=== PATIENT | female | born 1935 | race Caucasian/White ===

== ENCOUNTER → 2017-02-08 | Outpatient (CLI) | payer MEDICARE ==
[~2017-02-08] MED LIST: ALBU8.5H4 IH; ALPR.25T PO; ASP81CT PO; ATOR40TA; CALC-80 PO; CHLO1CAP PO; CRAN1TAB PO; DCS100C PO; DILT180C82 PO; FURO40TA4 PO; GBPN100C PO; GLUC500C2 PO; HYDR-3714 PO; HYDR1TAB66 PO; IBAN150T5 PO; IBP600T1 PO; IBUP-15 PO; KCL10CCR PO; LVT.05T PO; METO100T5 PO; MNTL10T PO; MULT-608 PO; NF-ESOM40C PO; OMEG1CAP51 PO; OMEP-10 PO; OXYC-12 PO; ROSU10TA12 PO; TELM40T PO; metamucil PO; ventolin inhaler ID
--- NOTE | 2017-02-08 18:00 | Diagnostic Imaging Report ---
PA and lateral views of the chest. Indication cough. Comparison 07/22/14 Findings: The lungs are hyperinflated with prominent interstitial markings on chronic basis compatible with COPD. There is scarring in the right perihilar region with the suggestion of calcified granulomas stable from 2014. The heart size is mildly enlarged. No active congestion or pulmonary edema. No effusion or pneumothorax The mediastinum and colten appear markable. Impression: COPD. Cardiomegaly. Right perihilar scarring without change from 2014. Dictated by: Dictated on workstation # [id number]
== END ==
LOC: RAD 13:24
PROVIDERS: ATTEND Nurse Practitioner Family
DX: J44.9 Chronic obstructive pulmonary disease, unspecified (principal)
CPT/HCPCS: 71020

== ENCOUNTER → 2017-02-08 | Outpatient (CLI) | payer MEDICARE ==
[2017-02-08 14:04] LABS: BASOPHILS % (AUTO) 0 % (0-10); EOSINOPHILS # (AUTO) 0.4 10^3/uL (0.0-0.3); EOSINOPHILS % (AUTO) 4 % (0-10); LYMPHOCYTES # (AUTO) 1.6 X 10^3 (1.0-4.0); LYMPHOCYTES % (AUTO) 16 % (12-44); MEAN CORPUSCULAR HEMOGLOBIN 29 PG (25-34); MEAN CORPUSCULAR HGB CONC 31 G/DL (32-36); MEAN CORPUSCULAR VOLUME 93 FL (80-99); MEAN PLATELET VOLUME 9.9 FL (7.4-10.4); MONOCYTES # (AUTO) 0.9 X 10^3 (0.0-1.0); MONOCYTES % (AUTO) 9 % (0-12); NEUTROPHILS # (AUTO) 7.2 X 10^3 (1.8-7.8); NEUTROPHILS % (AUTO) 71 % (42-75); PLATELET COUNT 269 10^3/uL (130-400); RED BLOOD COUNT 4.32 10^6/uL (4.35-5.85); RED CELL DISTRIBUTION WIDTH 14.1 % (10.0-14.5); WHITE BLOOD COUNT 10.1 10^3/uL (4.3-11.0)
[2017-02-08 15:15] LABS: BILIRUBIN,URINE NEGATIVE (NEGATIVE); KETONES,URINE NEGATIVE (NEGATIVE); LEUKOCYTE ESTERASE ,URINE 1+ (NEGATIVE); NITRITE,URINE NEGATIVE (NEGATIVE); PH,URINE 5 (5-9); PROTEIN,URINE NEGATIVE (NEGATIVE); UROBILINOGEN,URINE NORMAL (NORMAL)
== END ==
LOC: LAB 13:17
PROVIDERS: ATTEND Orthopaedic Surgery
DX: Z01.818 Encounter for other preprocedural examination (principal); N39.0 Urinary tract infection, site not specified
CPT/HCPCS: 36415; 81000; 85025

== ENCOUNTER 2017-03-25 07:04 | Emergency (ER) | payer MEDICARE ==
[~2017-03-25] VITALS: Ht 157.5 cm; Wt 102.1 kg
[2017-03-25 07:27] LABS: BILIRUBIN,URINE NEGATIVE (NEGATIVE); KETONES,URINE NEGATIVE (NEGATIVE); LEUKOCYTE ESTERASE ,URINE NEGATIVE (NEGATIVE); NITRITE,URINE NEGATIVE (NEGATIVE); PH,URINE 8 (5-9); PROTEIN,URINE 1+ (NEGATIVE); UROBILINOGEN,URINE 1 MG/DL (NORMAL)
--- NOTE | 2017-03-25 07:30 | ED GU-Female ---
General Chief Complaint: -Female Stated Complaint: BLADDER INFECTION Source: patient, spouse Exam Limitations: no limitations History of Present Illness Time seen by provider: 07:25 Initial Comments Patient presents to ER by private conveyance with her spouse with chief complaint of frequency of urination which started tonight. She denies dysuria or burning or discharge. She's was recently put on an antibiotic a few weeks back after her left knee replacement by Dr. Zuniga after that She was told that her infection had resolved. She's had no fevers chills malaise nausea vomiting diarrhea, shortness of breath or chest pain. The patient relates that she has regular urinary tract infections that usually present this way. She says in the past she has grown out Escherichia coli. Allergies and Home Medications Allergies Coded Allergies: No Known Drug Allergies (Unverified , 05/18/10) Home Medications Albuterol Sulfate 8.5 Gm Hfa.aer.ad, 8.5 GM IH Q4H PRN, (Reported) Aspirin 81 Mg Chew, 81 MG PO HS, (Reported) Calcium Carbonate/Vitamin D3 1 Each Tablet, 1 TAB PO DAILY, (Reported) Diltiazem Hcl 180 Mg Capsule.sa, 1 EACH PO DAILY, (Reported) Docusate Sodium 100 Mg Capsule, 1 TAB PO BID, (Reported) Esomeprazole Mag Trihydrate 40 Mg Capsule.dr, 1 CAP PO DAILY PRN, (Reported) Furosemide 40 Mg Tablet, 40 MG PO DAILY, (Reported) Hydrocodone Bit/Acetaminophen 1 Each Tablet, 1-2 EACH PO Q12H PRN, (Reported) Hydrocodone Bit/Acetaminophen 1 Tab Tablet, 1 TAB PO Q4H PRN for PAIN, #14 Ref 0 Prescribed by: GALILEO SOTO on 12/31/13 1843 Levothyroxine Sodium 50 Mcg Tablet, 50 MCG PO DAILY, (Reported) Metoprolol Succinate 100 Mg Tab.sr.24h, 25 MG PO DAILY, (Reported) Montelukast Sodium 10 Mg Tablet, 10 MG PO HS, (Reported) Multivitamins 1 Tab Tablet, 1 TAB PO DAILY, (Reported) [place]-3 Fatty Acids/Fish Oil 1 Each Capsule, 1 EACH PO DAILY, (Reported) Potassium Chloride 10 Meq Capcr, 10 MEQ PO DAILY, (Reported) Rosuvastatin Calcium 10 Mg Tablet, 1 EACH PO HS, (Reported) Telmisartan 40 Mg Tab, 80 MG PO HS, (Reported) Constitutional: No chills, No diaphoresis, No dizziness, No fever, No malaise, No weakness Respiratory: No cough, No short of breath Cardiovascular: No chest pain, No palpitations Gastrointestinal: No abdominal pain, No constipation, No diarrhea, No nausea Genitourinary: denies discharge, denies dysuria, frequency, denies flank pain, denies hematuria Musculoskeletal: No back pain, No joint pain Skin: No pruritus, No rash Past Nsvpdcu-Jfjtzb-Aiytoc Hx Patient Social History Alcohol Use: Denies Use Recreational Drug Use: No Smoking Status: Never a Smoker Recent Foreign Travel: No Contact w/Someone Who Travel: No Immunizations Up To Date Date of Pneumonia Vaccine: May 27, 2008 Date of Influenza Vaccine: Jun 12, 2013 Surgeries HX Surgeries: Yes (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, SKIN LESIONS) Respiratory Hx Respiratory Disorders: Yes (ASTHMA/SLEEP APNEA) Cardiovascular Hx Cardiac Disorders: Yes (IRREGULAR HEART RATE) Neurological Hx Neurological Disorders: No Reproductive System Hx Reproductive Disorders: No (HYST) Genitourinary Hx Genitourinary Disorders: Yes Gastrointestinal Hx Gastrointestinal Disorders: Yes Musculoskeletal Hx Musculoskeletal Disorders: Yes (NEUROPATHY) Endocrine Hx Endocrine Disorders: No HEENT HX ENT Disorders: No Blood Transfusions Hx Blood Disorders: No Physical Exam Vital Signs Vital Sign - Last 12Hours 03/25/17 07:14 Temp 95.9 Pulse 61 Resp 18 B/P (MAP) 136/60 Pulse Ox 94 Capillary Refill : General Appearance: WD/WN, no apparent distress Cardiovascular: normal peripheral pulses, regular rate, rhythm Respiratory: chest non-tender, lungs clear, normal breath sounds Gastrointestinal: non tender, soft Back: normal inspection, no CVA tenderness Extremities: no calf tenderness, normal capillary refill Neurologic/Psychiatric: alert, oriented x 3 Skin: normal color, warm/dry Progress/Results/Core Measures Results/Orders Lab Results Laboratory Tests Test 03/25/17 07:11 03/25/17 08:06 Range/Units Urine Color YELLOW Urine Clarity SLIGHTLY CLOUDY Urine pH 8 5-9 Urine Specific [place] 1.010 L 1.016-1.022 Urine Protein 1+ H NEGATIVE Urine Glucose (UA) NEGATIVE NEGATIVE Urine Ketones NEGATIVE NEGATIVE Urine Nitrite NEGATIVE NEGATIVE Urine Bilirubin NEGATIVE NEGATIVE Urine Urobilinogen 1 NORMAL MG/DL Urine Leukocyte Esterase NEGATIVE NEGATIVE Urine RBC (Auto) NEGATIVE NEGATIVE Urine RBC NONE /HPF Urine WBC NONE /HPF Urine Squamous Epithelial Cells 2-5 /HPF Urine Crystals NONE /LPF Urine Bacteria NEGATIVE /HPF Urine Casts NONE /LPF Urine Mucus NEGATIVE /LPF Urine Culture Indicated NO White Blood Count 8.9 4.3-11.0 10^3/uL Red Blood Count 4.33 L 4.35-5.85 10^6/uL Hemoglobin 12.2 11.5-16.0 G/DL Hematocrit 40 35-52 % Mean Corpuscular Volume 91 80-99 FL Mean Corpuscular Hemoglobin 28 25-34 PG Mean Corpuscular Hemoglobin Concent 31 L 32-36 G/DL Red Cell Distribution Width 14.4 10.0-14.5 % Platelet Count 336 130-400 10^3/uL Mean Platelet Volume 9.3 7.4-10.4 FL Neutrophils (%) (Auto) 56 42-75 % Lymphocytes (%) (Auto) 30 12-44 % Monocytes (%) (Auto) 11 0-12 % Eosinophils (%) (Auto) 3 0-10 % Basophils (%) (Auto) 1 0-10 % Neutrophils # (Auto) 5.0 1.8-7.8 X 10^3 Lymphocytes # (Auto) 2.7 1.0-4.0 X 10^3 Monocytes # (Auto) 0.9 0.0-1.0 X 10^3 Eosinophils # (Auto) 0.2 0.0-0.3 10^3/uL Basophils # (Auto) 0.1 0.0-0.1 10^3/uL Sodium Level 140 135-145 MMOL/L Potassium Level 4.6 3.6-5.0 MMOL/L Chloride Level 102 98-107 MMOL/L Carbon Dioxide Level 32 21-32 MMOL/L Anion Gap 6 5-14 MMOL/L Blood Urea Nitrogen 12 7-18 MG/DL Creatinine 0.71 0.60-1.30 MG/DL Estimat Glomerular Filtration Rate > 60 BUN/Creatinine Ratio 17 Glucose Level 102 70-105 MG/DL Calcium Level 9.6 8.5-10.1 MG/DL Magnesium Level 2.6 H 1.8-2.4 MG/DL Total Bilirubin 0.7 0.1-1.0 MG/DL Aspartate Amino Transf (AST/SGOT) 23 5-34 U/L Alanine Aminotransferase (ALT/SGPT) 13 0-55 U/L Alkaline Phosphatase 84 40-136 U/L Total Protein 6.7 6.4-8.2 GM/DL Albumin 3.8 3.2-4.5 GM/DL My Orders Orders - JASON JULIO Ua Culture If Indicated (03/25/17 07:14) Cbc With Automated Diff (03/25/17 08:03) Comprehensive Metabolic Panel (03/25/17 08:03) Magnesium (03/25/17 08:03) Post Void Residual Assessment (03/25/17 08:03) Vital Signs/I&O Vital Sign - Last 12Hours 03/25/17 07:14 Temp 95.9 Pulse 61 Resp 18 B/P (MAP) 136/60 Pulse Ox 94 Progress Note #1: Time: 08:02 Progress Note Patient with urinary frequency and otherwise clean urine. Her med history does reveal she's been taking Benadryl for a long time. No other anticholinergics. She has been using opiates however for her knee surgery which may in combination with the and a color looks explain urinary hesitancy. We'll get a postvoid residual and check her kidney function with a CMP as well as a CBC to see if there is any evidence of infection. However on further examination there is still no focal complaints other than urinary frequency and only very smaller modest amounts of micturition. Progress Note #2: Time: 08:43 Progress Note Bladder scan had 15 mL in it. Her voids her only putting out 30-45 cc of the time. She may be having some detrusor overactivity and there may be some medications contribute to her symptoms. We have encouraged her to use the lowest dose of narcotics so that she will reduce her risk for falls night getting up as well as the possibility of causing urinary retention. We've also suggested using cetirizine or loratadine rather than Benadryl at night. This is a more recent symptom however so we have also asked her to call her primary doctor and follow this up in the next week or 2. Departure Impression Impression: Primary Impression: Increased urinary frequency Disposition: 01 HOME, SELF-CARE Condition: Stable Departure-Patient Inst. Decision time for Depature: 08:44 Referrals: TOMMY MONTEIRO MD (PCP) Primary Care Physician Patient Instructions: Urinary Incontinence, Female (DC) Add. Discharge Instructions: Drink plenty of water and use a minimal amount of opiates necessary to control your knee pain. Contact your primary care doctor in 2-3 days and set up a follow-up appointment in the next week or 2. Make sure you have adequate nightlight small did throw rugs or picked up there and that nothing is littering the floors between you in the bathroom at night to reduce her risk of falls. Please return to the ER if you're experiencing fevers, chills, nausea, vomiting, or worsening symptoms. Otherwise you can also follow up with your primary care physician during the week. All discharge instructions reviewed with patient and/or family. Voiced understanding. Copy Copies To 1: TOMMY MONTEIRO MD, TITUS J Mar 25, 2017 07:30
[2017-03-25 08:14] LABS: BASOPHILS # (AUTO) 0.1 10^3/uL (0.0-0.1); BASOPHILS % (AUTO) 1 % (0-10); EOSINOPHILS # (AUTO) 0.2 10^3/uL (0.0-0.3); EOSINOPHILS % (AUTO) 3 % (0-10); LYMPHOCYTES # (AUTO) 2.7 X 10^3 (1.0-4.0); LYMPHOCYTES % (AUTO) 30 % (12-44); MEAN CORPUSCULAR HEMOGLOBIN 28 PG (25-34); MEAN CORPUSCULAR HGB CONC 31 G/DL (32-36); MEAN CORPUSCULAR VOLUME 91 FL (80-99); MEAN PLATELET VOLUME 9.3 FL (7.4-10.4); MONOCYTES # (AUTO) 0.9 X 10^3 (0.0-1.0); MONOCYTES % (AUTO) 11 % (0-12); NEUTROPHILS % (AUTO) 56 % (42-75); PLATELET COUNT 336 10^3/uL (130-400); RED BLOOD COUNT 4.33 10^6/uL (4.35-5.85); RED CELL DISTRIBUTION WIDTH 14.4 % (10.0-14.5); WHITE BLOOD COUNT 8.9 10^3/uL (4.3-11.0)
[2017-03-25 08:35] LABS: ALANINE AMINOTRANSFERASE 13 U/L (0-55); ALBUMIN 3.8 GM/DL (3.2-4.5); ANION GAP 6 MMOL/L (5-14); ASPARTATE AMINO TRANSFERASE 23 U/L (5-34); BILIRUBIN,TOTAL 0.7 MG/DL (0.1-1.0); BLOOD UREA NITROGEN 12 MG/DL (7-18); BUN/CREATININE RATIO 17; CALCIUM 9.6 MG/DL (8.5-10.1); CARBON DIOXIDE 32 MMOL/L (21-32); CHLORIDE 102 MMOL/L (98-107); CREATININE SERUM 0.71 MG/DL (0.60-1.30); GFR ESTIMATED > 60; GLUCOSE 102 MG/DL (70-105); MAGNESIUM 2.6 MG/DL (1.8-2.4); POTASSIUM 4.6 MMOL/L (3.6-5.0); SODIUM 140 MMOL/L (135-145); TOTAL PROTEIN 6.7 GM/DL (6.4-8.2)
[2017-03-25 08:53] VITALS: BP 138/62
== END 2017-03-25 08:53 | disposition home or self-care (01) ==
LOC: EDUNIT# 07:04 → ER 07:06
DX: R35.0 Frequency of micturition (principal); J45.909 Unspecified asthma, uncomplicated; G47.30 Sleep apnea, unspecified; Z96.652 Presence of left artificial knee joint; Z79.82 Long term (current) use of aspirin; Z85.828 Personal history of other malignant neoplasm of skin
CPT/HCPCS: 36415; 80053; 81000; 83735; 85025

== ENCOUNTER 2017-05-25 10:30 | Outpatient (RCR) | payer MEDICARE | END 2017-05-26 | disposition home or self-care (01) | PROVIDERS: ATTEND Orthopaedic Surgery | DX: Z96.652 Presence of left artificial knee joint; Z47.1 Aftercare following joint replacement surgery ==

== ENCOUNTER 2017-06-01 10:58 | Outpatient (RCR) | payer MEDICARE | END 2017-07-24 14:35 | disposition home or self-care (01) | PROVIDERS: ATTEND Orthopaedic Surgery | DX: Z47.1 Aftercare following joint replacement surgery (principal); Z96.652 Presence of left artificial knee joint ==

== ENCOUNTER → 2017-09-07 | Outpatient (CLI) | payer MEDICARE ==
--- NOTE | 2017-09-07 13:07 | Diagnostic Imaging Report ---
EXAMINATION: PA and lateral chest obtained at 12:15PM. INDICATION: Chronic cough The heart size is stable when compared to 07/22/2014. The prominent right hilum and the band of atelectasis/scar formation in the right upper lung seen on the previous study are again evident and no different. The lungs are generally clear. There is no sign of failure, pneumonia or a pleural effusion to indicate an acute abnormality. The mediastinum is not widened. The osseous structures are intact. IMPRESSION: There is no evidence for active disease. When compared to the prior study there has been no significant change. Dictated by: Dictated on workstation # [id number]
== END ==
LOC: RAD 11:46
PROVIDERS: ATTEND Nurse Practitioner Family
DX: R05 Cough (principal)
CPT/HCPCS: 71046

== ENCOUNTER 2018-03-14 15:16 | Outpatient (RCR) | payer MEDICARE | END 2018-03-18 | disposition home or self-care (01) | PROVIDERS: ATTEND Family Medicine | DX: R53.1 Weakness (principal); M79.606 Pain in leg, unspecified; R26.81 Unsteadiness on feet ==

== ENCOUNTER 2018-05-09 13:00 | Outpatient (RCR) | payer MEDICARE | END 2018-05-09 13:55 | disposition home or self-care (01) | PROVIDERS: ATTEND Family Medicine | DX: R53.1 Weakness (principal); M79.605 Pain in left leg; M79.604 Pain in right leg; R26.81 Unsteadiness on feet; Z96.652 Presence of left artificial knee joint ==

== ENCOUNTER 2018-07-25 14:01 | Outpatient (RCR) | payer MEDICARE | END 2018-09-15 | disposition home or self-care (01) | PROVIDERS: ATTEND Family Medicine | DX: M25.561 Pain in right knee (principal); M25.562 Pain in left knee; M54.9 Dorsalgia, unspecified ==

== ENCOUNTER → 2018-10-07 | Outpatient (CLI) | payer MEDICARE ==
--- NOTE | 2018-10-07 12:44 | Diagnostic Imaging Report ---
Indication: Routine screening. Comparison is made with prior mammogram from 07/22/2014 and 03/05/2013. 2-D and 3-D bilateral screening mammography was performed with CAD. Scattered fibroglandular densities are identified bilaterally. A nodular density in the retroareolar right breast on the CC view appears stable when compared to prior exams. No new mass or malignant-appearing microcalcifications are identified. The axillae are unremarkable. Impression: BI-RADS category 2 No mammographic features suspicious for malignancy are identified. ACR BI-RADS Category 2: Benign findings. Result letter will be mailed to the patient. Note: At least 10% of breast cancer is not imaged by mammography. Dictated by: Dictated on workstation # [id number]
== END ==
LOC: RAD 09:31
PROVIDERS: ATTEND Nurse Practitioner Family
DX: Z12.31 Encounter for screening mammogram for malignant neoplasm of breast (principal)
CPT/HCPCS: 77067

== ENCOUNTER 2018-12-18 05:41 | Outpatient (CLI) | payer MEDICARE ==
[~2018-12-18] VITALS: Ht 157.5 cm; Wt 102.1 kg
[2018-12-18] MEDS ORDERED: ROSU10TA27 PO (13:07)
[2018-12-18] MEDS ORDERED: CAND16TA12 PO (13:07)
[2018-12-18] MEDS ORDERED: ASPI-999 PO (13:07)
[2018-12-18] MEDS ORDERED: MONT10TA24 PO ×2 (13:07)
[2018-12-18] MEDS ORDERED: ACID1TAB5 PO (13:07)
[2018-12-18] MEDS ORDERED: ALPR0.254 PO (13:07)
[2018-12-18] MEDS ORDERED: DILT240C53 PO (13:07)
[2018-12-18] MEDS ORDERED: POTA10CA43 PO (13:07)
[2018-12-18] MEDS ORDERED: FURO40TA4 PO (13:07)
[2018-12-18] MEDS ORDERED: LEVO50TA6 PO (13:07)
[2018-12-18] MEDS ORDERED: MELO15TA39 PO (13:07)
[2018-12-18] MEDS ORDERED: DOCU100T2 PO (13:07)
[2018-12-18] MEDS ORDERED: BIMA2.5D4 OP (13:07)
[2018-12-18] MEDS ORDERED: CALC-654 PO (13:07)
== END 2018-12-18 13:12 | disposition home or self-care (01) ==
LOC: PREOP 05:41
PROVIDERS: ATTEND Specialist
DX: Z01.818 Encounter for other preprocedural examination (principal)

== ENCOUNTER 2018-12-20 08:50 | Day surgery (SDC) | payer MEDICARE ==
[~2018-12-20] VITALS: Ht 157.5 cm; Wt 102.1 kg
[~2018-12-20 08:50] MED LIST changes: +ACID1TAB5 PO; +ALPR0.254 PO; +ASPI-999 PO; +BIMA2.5D4 OP; +CALC-654 PO; +CAND16TA12 PO; +DILT240C53 PO; +DOCU100T2 PO; +LEVO50TA6 PO; +MELO15TA39 PO; +MONT10TA24 PO; +POTA10CA43 PO; +ROSU10TA27 PO
[2018-12-20 09:12] VITALS: BP 113/78
[2018-12-20] MEDS ORDERED: TIMOLOL MALEATE 0.5% 5 ML (TIMOPTIC) BTL OU PRN (09:15)
[2018-12-20] MEDS ORDERED: MOXIFLOXACIN OPHTH SOLN 5 MG/ML 0.3 ML SYRINGE OP ONE (09:15)
[2018-12-20] MEDS ORDERED: POVIDONE (BETADINE) OPHTH SOLN 5% 30 ML OP ONE (09:15)
[2018-12-20] MEDS ORDERED: LIDOCAINE PF 1% 2 ML AMP IR PRN (09:15)
[2018-12-20] MEDS: TETRACAINE 0.5% OPHTH SOLN 4 ML BTL (SINGLE DOSE ONLY) OU PRN ×4 (09:17→09:38)
[2018-12-20] MEDS: CYCLOPENTOLATE 1% (CYCLOGYL) 2 ML DROPS OP SCH ×3 (09:27→09:38)
[2018-12-20] MEDS: PHENYLEPHRINE 10% OPHTH (NEO-SYN) 5 ML BTL OU SCH ×3 (09:28→09:38)
[2018-12-20] MEDS ORDERED: MIDAZOLAM 2 MG/2 ML (VERSED) VIAL ONE (09:42)
--- NOTE | 2018-12-20 09:56 | Ophthalmologist Pre-Op Note ---
Pre-Operative Progress Note H&P Reviewed The H&P was reviewed, patient examined and no changes noted. Date H&P Reviewed: Dec 20, 2018 Time H&P Reviewed: 09:56 Pre-Op Dx Cataract, Left Eye SOUTH PETERS MD Dec 20, 2018 09:56
--- NOTE | 2018-12-20 10:22 | Ophthalmology Operative Report ---
Cataract removal/placement IOL PREOPERATIVE DIAGNOSIS: Cataract Left Eye POSTOPERATIVE DIAGNOSIS: Cataract Left Eye PROCEDURE: Cataract removal and placement of posterior chamber implant, left eye SURGEON: Parviz Peters ANESTHESIA: Topical with sedation COMPLICATIONS: None ESTIMATED BLOOD LOSS: Minimal DESCRIPTION OF PROCEDURE: After proper informed consent was obtained, the patient, a 83 female, was taken to the Operating Room and the left eye was anesthetized with tetracaine. The left eye was then prepped and draped in the usual manner. A wire lid speculum was placed. A paracentesis was made at the left hand position. Preservative free lidocaine was injected into the anterior chamber followed by viscoelastic. A clear corneal incision was made in the temporal position. A capsulorrhexis was preformed and the central nuclear and cortical material were removed. The posterior capsule was polished and an Emeterio 19.5 [id number] was placed into the capsular bag. The residual viscoelastic was aspirated and balanced saline solution was injected into the anterior chamber. Moxifloxacin was injected into the anterior chamber. The wound was checked and found to be water tight. The patient tolerated the procedure well without complications. PARVIZ PETERS MD Dec 20, 2018 10:22
[2018-12-20] MEDS ORDERED: acetaZOLAMIDE ER 500 MG CAP (DIAMOX SEQUELS) PO ONE (10:30)
[2018-12-20 10:35] VITALS: BP 130/76
--- NOTE | 2018-12-20 10:54 | NUR ---
Initial visit with pt and her her , Ravinder. They demonstrate positive attitudes and expressed appreciation for excellent care. Offered active listening and uplifting words of support.
--- NOTE | 2018-12-20 12:08 | Anesthesia-General Post-Op ---
MAC Patient Condition Mental Status/LOC: Same as Preop Cardiovascular: Satisfactory Nausea/Vomiting: Absent Respiratory: Satisfactory Pain: Controlled Complications: Absent Post Op Complications Complications None Follow Up Care/Instructions Patient Instructions None needed. Anesthesiology Discharge Order Discharge Order Patient is doing well, no complaints, stable vital signs, no apparent adverse anesthesia problems. No complications reported per nursing. CHUNG PIZARRO CRNA Dec 20, 2018 12:08
== END 2018-12-20 10:41 | disposition home or self-care (01) ==
LOC: SDC 08:50
PROVIDERS: ATTEND Specialist
DX: H25.12 Age-related nuclear cataract, left eye (principal); I10 Essential (primary) hypertension; E78.00 Pure hypercholesterolemia, unspecified; E03.9 Hypothyroidism, unspecified; E66.9 Obesity, unspecified; Z68.41 Body mass index [BMI] 40.0-44.9, adult; Z79.82 Long term (current) use of aspirin; Z79.899 Other long term (current) drug therapy

== ENCOUNTER 2018-12-25 14:40 | Outpatient (CLI) | payer MEDICARE | END 2018-12-25 14:51 | disposition home or self-care (01) | LOC: PREOP 14:40 | PROVIDERS: ATTEND Specialist | DX: Z01.818 Encounter for other preprocedural examination (principal) ==

== ENCOUNTER 2018-12-27 09:35 | Day surgery (SDC) | payer MEDICARE ==
[~2018-12-27] VITALS: Ht 157.5 cm; Wt 102.1 kg
[2018-12-27 09:35] VITALS: BP 114/73
--- OUTSIDE RECORDS SUMMARY | 2018-12-27 10:00 | XMS REPORT | CCD ---
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 05/29/2018 Comp Metabolic Wtj284 ALT(SGPT) 12 U/L 05/29/2018 Comp Metabolic Ntg885 BILI T 1.1 mg/dL 05/29/2018 Comp Metabolic Ffr632 ALBUMIN 4.0 g/dL 05/29/2018 Comp Metabolic Aht474 TPRO 6.5 g/dL 05/29/2018 Comp Metabolic Rmp854 GLOB 2.5 g/dL 05/29/2018 Comp Metabolic Asu931 A/G Ratio 1.6 Ratio 05/29/2018 Comp Metabolic Dvq769 Osmo 279 mOsmo 05/29/2018 Cbc With Differential Ord2 WBC 8.22 K/ul 05/29/2018 Cbc With Differential Ord2 RBC 4.40 M/ul 05/29/2018 Cbc With Differential Ord2 HGB 12.7 g/dl 05/29/2018 Cbc With Differential Ord2 HCT 40.7 % 05/29/2018 Cbc With Differential Ord2 Neut% 63.0 % 05/29/2018 Cbc With Differential Ord2 MCV 92.5 fl 05/29/2018 Cbc With Differential Ord2 Lymph% 24.9 % 05/29/2018 Cbc With Differential Ord2 MCH 28.9 pg 05/29/2018 Cbc With Differential Ord2 Mcminn% 9.0 % 05/29/2018 Cbc With Differential Ord2 MCHC 31.2 pg 05/29/2018 Cbc With Differential Ord2 Eos% 2.6 % 05/29/2018 Cbc With Differential Ord2 PLT 329 K/ul 05/29/2018 Cbc With Differential Ord2 Baso% 0.5 % 05/29/2018 Cbc With Differential Ord2 RDW 14.9 % 05/29/2018 Cbc With Differential Ord2 Neut ABS# 5.18 K/ul 05/29/2018 Cbc With Differential Ord2 Lymph ABS# 2.05 K/ul 05/29/2018 Cbc With Differential Ord2 Mcminn ABS# 0.7 K/ul 05/29/2018 Cbc With Differential Ord2 Eos ABS# 0.2 K/ul 05/29/2018 Cbc With Differential Ord2 Baso ABS# 0.0 K/ul 05/29/2018 Tsh Ord6 TSH (3rd IS) 2.05 uIU/mL 05/29/2018 Lipid Ord30 CHOL 191 mg/dL 05/29/2018 Lipid Ord30 HDL 68.0 mg/dl 05/29/2018 Lipid Ord30 TRIG 138 mg/dL 05/29/2018 Lipid Ord30 LDL 95 mg/dL 05/29/2018 Lipid Ord30 C/HDL 2.8 Ratio 05/29/2018 Free T4 [id number] FREE T4 0.93 ng/dL 05/29/2018 Free T4 Ahr356 FREE T4 0.90 ng/dL 09/12/2017 Cbc With Differential Ord2 WBC 13.35 K/ul 09/12/2017 Cbc With Differential Ord2 RBC 4.03 M/ul 09/12/2017 Cbc With Differential Ord2 HGB 11.8 g/dl 09/12/2017 Cbc With Differential Ord2 HCT 39.1 % 09/12/2017 Cbc With Differential Ord2 Neut% 68.2 % 09/12/2017 Cbc With Differential Ord2 MCV 97.0 fl 09/12/2017 Cbc With Differential Ord2 Lymph% 20.4 % 09/12/2017 Cbc With Differential Ord2 MCH 29.3 pg 09/12/2017 Cbc With Differential Ord2 Mcminn% 8.7 % 09/12/2017 Cbc With Differential Ord2 MCHC 30.2 pg 09/12/2017 Cbc With Differential Ord2 Eos% 2.2 % 09/12/2017 Cbc With Differential Ord2 PLT 381 K/ul 09/12/2017 Cbc With Differential Ord2 Baso% 0.5 % 09/12/2017 Cbc With Differential Ord2 RDW 14.9 % 09/12/2017 Cbc With Differential Ord2 Neut ABS# 9.11 K/ul 09/12/2017 Cbc With Differential Ord2 Lymph ABS# 2.72 K/ul 09/12/2017 Cbc With Differential Ord2 Mcminn ABS# 1.2 K/ul 09/12/2017 Cbc With Differential Ord2 Eos ABS# 0.3 K/ul 09/12/2017 Cbc With Differential Ord2 Baso ABS# 0.1 K/ul 09/12/2017 Comp Metabolic Iak257 NA 140 mEq/L 09/12/2017 Comp Metabolic Qgs742 K 4.3 mEq/L 09/12/2017 Comp Metabolic Btz398 CL 99 mEq/L 09/12/2017 Comp Metabolic Nht651 CO2 33.0 mEq/L 09/12/2017 Comp Metabolic Fwn006 ANION GAP 12 09/12/2017 Comp Metabolic Tgs567 GLUCOSE 92 mg/dL 09/12/2017 Comp Metabolic Lbs051 Creat 0.7 mg/dL 09/12/2017 Comp Metabolic Zrx956 eGFR 84 ml/min/1.73m2 09/12/2017 Comp Metabolic Pxa688 BUN 18 mg/dL 09/12/2017 Comp Metabolic Pku016 B/C Ratio 25.4 Ratio 09/12/2017 Comp Metabolic Vgj990 CALCIUM 9.3 mg/dL 09/12/2017 Comp Metabolic Gie681 ALK PHOS 64 U/L 09/12/2017 Comp Metabolic Wmy303 AST(SGOT) 13 U/L 09/12/2017 Comp Metabolic Rte271 ALT(SGPT) 12 U/L 09/12/2017 Comp Metabolic Jay289 BILI T 0.7 mg/dL 09/12/2017 Comp Metabolic Mlf347 ALBUMIN 4.0 g/dL 09/12/2017 Comp Metabolic Xgr086 TPRO 6.3 g/dL 09/12/2017 Comp Metabolic Xpa003 GLOB 2.3 g/dL 09/12/2017 Comp Metabolic Esd219 A/G Ratio 1.8 Ratio 09/12/2017 Comp Metabolic Kui416 Osmo 281 mOsmo 09/12/2017 Lipid Ord30 CHOL 213 mg/dL 09/12/2017 Lipid Ord30 HDL 68.0 mg/dl 09/12/2017 Lipid Ord30 TRIG 202 mg/dL 09/12/2017 Lipid Ord30 LDL 105 mg/dL 09/12/2017 Lipid Ord30 C/HDL 3.1 Ratio 09/12/2017 Tsh Ord6 hTSH II 1.98 uIU/mL 09/12/2017 Tsh Ord6 hTSH II 1.56 uIU/mL 03/09/2016 Cbc With Differential Ord2 WBC 9.05 K/ul 03/09/2016 Cbc With Differential Ord2 RBC 4.03 M/ul 03/09/2016 Cbc With Differential Ord2 HGB 11.6 g/dl 03/09/2016 Cbc With Differential Ord2 HCT 37.0 % 03/09/2016 Cbc With Differential Ord2 Neut% 62.8 % 03/09/2016 Cbc With Differential Ord2 MCV 91.8 fl 03/09/2016 Cbc With Differential Ord2 Lymph% 26.3 % 03/09/2016 Cbc With Differential Ord2 MCH 28.8 pg 03/09/2016 Cbc With Differential Ord2 Mcminn% 8.5 % 03/09/2016 Cbc With Differential Ord2 MCHC 31.4 pg 03/09/2016 Cbc With Differential Ord2 Eos% 1.8 % 03/09/2016 Cbc With Differential Ord2 PLT 316 K/ul 03/09/2016 Cbc With Differential Ord2 Baso% 0.6 % 03/09/2016 Cbc With Differential Ord2 RDW 13.6 % 03/09/2016 Cbc With Differential Ord2 Neut ABS# 5.69 K/ul 03/09/2016 Cbc With Differential Ord2 Lymph ABS# 2.38 K/ul 03/09/2016 Cbc With Differential Ord2 [place] ABS# 0.8 K/ul 03/09/2016 Cbc With Differential Ord2 Eos ABS# 0.2 K/ul 03/09/2016 Cbc With Differential Ord2 Baso ABS# 0.1 K/ul 03/09/2016 Comp Metabolic Esy355 NA 138 mEq/L 03/09/2016 Comp Metabolic Eyf322 K 4.5 mEq/L 03/09/2016 Comp Metabolic Dyq891 CL 100 mEq/L 03/09/2016 Comp Metabolic Rub607 CO2 33.0 mEq/L 03/09/2016 Comp Metabolic Hgo421 ANION GAP 10 03/09/2016 Comp Metabolic Tdc259 GLUCOSE 94 mg/dL 03/09/2016 Comp Metabolic Ciw915 Creat 0.6 mg/dL 03/09/2016 Comp Metabolic Rpu456 eGFR 106 ml/min/1.73m2 03/09/2016 Comp Metabolic Yyi492 BUN 10 mg/dL 03/09/2016 Comp Metabolic Kdr232 B/C Ratio 17.2 Ratio 03/09/2016 Comp Metabolic Pyd618 CALCIUM 9.2 mg/dL 03/09/2016 Comp Metabolic Cjv963 ALK PHOS 64 U/L 03/09/2016 Comp Metabolic Sms943 AST(SGOT) 20 U/L 03/09/2016 Comp Metabolic Yia718 ALT(SGPT) 11 U/L 03/09/2016 Comp Metabolic Ofp228 BILI T 0.9 mg/dL 03/09/2016 Comp Metabolic Wom373 ALBUMIN 4.0 g/dL 03/09/2016 Comp Metabolic Its638 TPRO 6.1 g/dL 03/09/2016 Comp Metabolic Xud439 GLOB 2.1 g/dL 03/09/2016 Comp Metabolic Ahj964 A/G Ratio 1.9 Ratio 03/09/2016 Comp Metabolic Skt280 Osmo 274 mOsmo 03/09/2016 Free T4 Ist605 FREE T4 0.90 ng/dL 03/09/2016 Lipid Ord30 CHOL 192 mg/dL 03/09/2016 Lipid Ord30 HDL 60.0 mg/dl 03/09/2016 Lipid Ord30 TRIG 156 mg/dL 03/09/2016 Lipid Ord30 LDL 101 mg/dL 03/09/2016 Lipid Ord30 C/HDL 3.2 Ratio 03/09/2016 Lipid Ord30 CHOL 209 mg/dL 09/07/2015 Lipid Ord30 HDL 61.0 mg/dl 09/07/2015 Lipid Ord30 TRIG 157 mg/dL 09/07/2015 Lipid Ord30 LDL 117 mg/dL 09/07/2015 Lipid Ord30 C/HDL 3.4 Ratio 09/07/2015 Tsh Ord6 hTSH II 3.25 uIU/mL 09/07/2015 Free T4 Coy156 FREE T4 0.79 ng/dL 09/07/2015 Comp Metabolic Bep611 NA 137 mEq/L 09/07/2015 Comp Metabolic Ikc444 K 4.0 mEq/L 09/07/2015 Comp Metabolic Slr240 CL 98 mEq/L 09/07/2015 Comp Metabolic Qxn828 CO2 30.0 mEq/L 09/07/2015 Comp Metabolic Ntq750 ANION GAP 13 09/07/2015 Comp Metabolic Aul390 GLUCOSE 101 mg/dL 09/07/2015 Comp Metabolic Yhw910 Creat 0.6 mg/dL 09/07/2015 Comp Metabolic Akm017 eGFR 111 ml/min/1.73m2 09/07/2015 Comp Metabolic Yiy487 BUN 16 mg/dL 09/07/2015 Comp Metabolic Gvi650 B/C Ratio 28.6 Ratio 09/07/2015 Comp Metabolic Ybf865 CALCIUM 9.4 mg/dL 09/07/2015 Comp Metabolic Xmm242 ALK PHOS 68 U/L 09/07/2015 Comp Metabolic Dui172 AST(SGOT) 16 U/L 09/07/2015 Comp Metabolic Cyi597 ALT(SGPT) 12 U/L 09/07/2015 Comp Metabolic Kpn902 BILI T 0.9 mg/dL 09/07/2015 Comp Metabolic Fju728 ALBUMIN 4.1 g/dL 09/07/2015 Comp Metabolic Kpe153 TPRO 6.5 g/dL 09/07/2015 Comp Metabolic Sgp560 GLOB 2.4 g/dL 09/07/2015 Comp Metabolic Mce032 A/G Ratio 1.7 Ratio 09/07/2015 Comp Metabolic Btm078 Osmo 275 mOsmo 09/07/2015 Cbc With Differential Ord2 WBC 6.9 K/uL 09/07/2015 Cbc With Differential Ord2 LYM 2.1 K/uL 09/07/2015 Cbc With Differential Ord2 LYM% 30.9 % 09/07/2015 Cbc With Differential Ord2 NEUT/GRAN 4.2 K/uL 09/07/2015 Cbc With Differential Ord2 NEUT/GRAN % 61.0 % 09/07/2015 Cbc With Differential Ord2 MID 0.6 K/uL 09/07/2015 Cbc With Differential Ord2 MID% 8.1 % 09/07/2015 Cbc With Differential Ord2 RBC 4.29 M/uL 09/07/2015 Cbc With Differential Ord2 HGB 11.9 g/dL 09/07/2015 Cbc With Differential Ord2 HCT 38.8 % 09/07/2015 Cbc With Differential Ord2 MCV 91 fL 09/07/2015 Cbc With Differential Ord2 MCH 28 pg 09/07/2015 Cbc With Differential Ord2 MCHC 31 g/dL 09/07/2015 Cbc With Differential Ord2 PLT 315 K/uL 09/07/2015 Cbc With Differential Ord2 RDW 14.4 % 09/07/2015 TSH 1256770 TSH 0.920 uIU/ML 08/28/2014 CBC 9309155 WBC 12.5 10e9/L 08/28/2014 CBC [id number] RBC 3.44 10e12/L 08/28/2014 CBC 6877250 HGB 10.3 g/dL 08/28/2014 CBC 8686451 HCT DET 33.9 % 08/28/2014 CBC [id number] MCV 98.5 fL 08/28/2014 CBC 3202798 MCH 29.9 pg 08/28/2014 CBC 2983255 MCHC 30.4 g/dL 08/28/2014 CBC 3951850 PLT 412 10e9/L 08/28/2014 CBC 7423340 MPV 10.2 fL 08/28/2014 CBC 1689116 NNEKA % 68.5 % 08/28/2014 CBC 9538515 LY % 20.8 % 08/28/2014 CBC 0347258 MON % 9.9 % 08/28/2014 CBC 9557119 EOS % 0.6 % 08/28/2014 CBC 1522093 BASO % 0.2 % 08/28/2014 CBC 5879381 RDW 15.8 % 08/28/2014 CBC 2074783 ABS NNEKA 8.56 10e9/L 08/28/2014 CBC 9440117 ABS LYMPH 2.60 10e9/L 08/28/2014 CBC 4683425 ABS MONO 1.24 10e9/L 08/28/2014 CBC 5439523 ABS EOS 0.08 10e9/L 08/28/2014 CBC 5535363 ABS BASO 0.03 10e9/L 08/28/2014 CBC 4069432 RDW-SD 55.4 fL 08/28/2014 GFR CALC 5321177 GFR AA >60 ML/MIN 08/28/2014 GFR CALC 8894138 GFR NON-AA >60 ML/MIN 08/28/2014 LIPID GRP HDL TEST 69 MG/DL 08/28/2014 LIPID GRP TRIG 158 MG/DL 08/28/2014 LIPID GRP TEST LDL 96 MG/DL 08/28/2014 LIPID GRP CHOL 197 MG/DL 08/28/2014 LIPID GRP RCHOL/HDL 2.86 RATIO 08/28/2014 LIPID GRP NON-HDL CH 128 MG/DL 08/28/2014 CHEM 14 1712310 AST 14 U/L 08/28/2014 CHEM 14 4962220 ALT 13 IU/L 08/28/2014 CHEM 14 0999156 BUN 15 MG/DL 08/28/2014 CHEM 14 8730288 ALBUMIN 4.2 GM/DL 08/28/2014 CHEM 14 6345711 CHLORIDE 98 MMOL/L 08/28/2014 CHEM 14 8901547 BILI TOT 1.2 MG/DL 08/28/2014 CHEM 14 5953444 ALK PHOS 68 U/L 08/28/2014 CHEM 14 5089853 SODIUM 137 MMOL/L 08/28/2014 CHEM 14 4221023 CREATININE 0.68 MG/DL 08/28/2014 CHEM 14 7424213 CALCIUM 9.1 MG/DL 08/28/2014 CHEM 14 0284697 POTASSIUM 3.7 MMOL/L 08/28/2014 CHEM 14 0638057 PROT TOT 6.2 GM/DL 08/28/2014 CHEM 14 5167818 GLUCOSE 91 MG/DL 08/28/2014 CHEM 14 6116726 BICARB 31 MMOL/L 08/28/2014 CHEM 14 2179990 ANION GAP 8 MEQ/L 08/28/2014 FREE T4 5824075 FREE T4 1.44 NG/DL 08/28/2014 LIPID GRP HDL TEST 73 MG/DL 04/16/2014 LIPID GRP TRIG 131 MG/DL 04/16/2014 LIPID GRP TEST LDL 99 MG/DL 04/16/2014 LIPID GRP CHOL 198 MG/DL 04/16/2014 LIPID GRP RCHOL/HDL 2.71 RATIO 04/16/2014 LIPID GRP NON-HDL CH 125 MG/DL 04/16/2014 CHEM 14 3646123 AST 17 U/L 04/14/2014 CHEM 14 2884743 ALT 17 IU/L 04/14/2014 CHEM 14 0899209 BUN 15 MG/DL 04/14/2014 CHEM 14 9079826 ALBUMIN 4.3 GM/DL 04/14/2014 CHEM 14 1924082 CHLORIDE 96 MMOL/L 04/14/2014 CHEM 14 6927721 BILI TOT 0.9 MG/DL 04/14/2014 CHEM 14 3755869 ALK PHOS 65 U/L 04/14/2014 CHEM 14 7343560 SODIUM 135 MMOL/L 04/14/2014 CHEM 14 0593169 CREATININE 0.69 MG/DL 04/14/2014 CHEM 14 8167904 CALCIUM 9.5 MG/DL 04/14/2014 CHEM 14 7099350 POTASSIUM 4.1 MMOL/L 04/14/2014 CHEM 14 8109912 PROT TOT 6.6 GM/DL 04/14/2014 CHEM 14 0834549 GLUCOSE 104 MG/DL 04/14/2014 CHEM 14 2498151 BICARB 34 MMOL/L 04/14/2014 CHEM 14 5358994 ANION GAP 5 MEQ/L 04/14/2014 A1C HPLC 9988597 A1C HPLC 02109-3 5.0 % 04/14/2014 TSH 4756004 TSH 2.140 uIU/ML 04/14/2014 FREE T4 6551264 FREE T4 1.56 NG/DL 04/14/2014 GFR CALC 6717066 GFR AA >60 ML/MIN 04/14/2014 GFR CALC 3650963 GFR NON-AA >60 ML/MIN 04/14/2014 CBC 1279550 WBC 12.8 10e9/L 04/14/2014 CBC 5797934 RBC 4.44 10e12/L 04/14/2014 CBC 3485698 HGB 13.2 g/dL 04/14/2014 CBC 0597224 HCT DET 41.4 % 04/14/2014 CBC 1904780 MCV 93.2 fL 04/14/2014 CBC 9666617 MCH 29.7 pg 04/14/2014 CBC 1428543 MCHC 31.9 g/dL 04/14/2014 CBC 0389786 PLT 383 10e9/L 04/14/2014 CBC 7405218 MPV 10.1 fL 04/14/2014 CBC 2796019 NNEKA % 65.5 % 04/14/2014 CBC 8636717 LY % 23.0 % 04/14/2014 CBC 5083127 MON % 9.9 % 04/14/2014 CBC 1835164 EOS % 1.3 % 04/14/2014 CBC 4285870 BASO % 0.3 % 04/14/2014 CBC 3006628 RDW 13.7 % 04/14/2014 CBC 0785585 ABS NNEKA 8.38 10e9/L 04/14/2014 CBC 3067627 ABS LYMPH 2.94 10e9/L 04/14/2014 CBC 7715600 ABS MONO 1.27 10e9/L 04/14/2014 CBC 6867347 ABS EOS 0.17 10e9/L 04/14/2014 CBC 6891388 ABS BASO 0.04 10e9/L 04/14/2014 CBC 0491346 RDW-SD 45.9 fL 04/14/2014 A1C HPLC 9120502 A1C HPLC 32947-6 4.9 % 11/13/2013 CHEM 14 9639278 AST 15 U/L 11/12/2013 CHEM 14 4527693 ALT 14 IU/L 11/12/2013 CHEM 14 7207541 BUN 14 MG/DL 11/12/2013 CHEM 14 8919932 ALBUMIN 4.3 GM/DL 11/12/2013 CHEM 14 7388525 CHLORIDE 101 MMOL/L 11/12/2013 CHEM 14 4969579 BILI TOT 0.9 MG/DL 11/12/2013 CHEM 14 4606970 ALK PHOS 67 U/L 11/12/2013 CHEM 14 2298136 SODIUM 139 MMOL/L 11/12/2013 CHEM 14 7895904 CREATININE 0.67 MG/DL 11/12/2013 CHEM 14 1456613 CALCIUM 9.5 MG/DL 11/12/2013 CHEM 14 5567415 POTASSIUM 4.1 MMOL/L 11/12/2013 CHEM 14 2943962 PROT TOT 6.5 GM/DL 11/12/2013 CHEM 14 9108124 GLUCOSE 102 MG/DL 11/12/2013 CHEM 14 8498149 BICARB 30 MMOL/L 11/12/2013 CHEM 14 6964969 ANION GAP 8 MEQ/L 11/12/2013 GFR CALC 7429901 GFR AA >60 ML/MIN 11/12/2013 GFR CALC 5776001 GFR NON-AA >60 ML/MIN 11/12/2013 TSH 1871185 TSH 2.445 uIU/ML 11/12/2013 FREE T4 7146086 FREE T4 1.09 NG/DL 11/12/2013 CBC 7544529 WBC 7.6 10e9/L 11/12/2013 CBC 6255361 RBC 4.42 10e12/L 11/12/2013 CBC 9508845 HGB 13.1 g/dL 11/12/2013 CBC 9016069 HCT DET 41.2 % 11/12/2013 CBC 7470896 MCV 93.2 fL 11/12/2013 CBC 9191536 MCH 29.6 pg 11/12/2013 CBC 8936985 MCHC 31.8 g/dL 11/12/2013 CBC 5679856 PLT 314 10e9/L 11/12/2013 CBC 7113468 MPV 10.4 fL 11/12/2013 CBC 0737514 NNEKA % 59.8 % 11/12/2013 CBC 9066140 LY % 28.1 % 11/12/2013 CBC 7973943 MON % 9.5 % 11/12/2013 CBC 7088304 EOS % 1.8 % 11/12/2013 CBC 3519219 BASO % 0.8 % 11/12/2013 CBC 2827928 RDW 13.8 % 11/12/2013 CBC 5164225 ABS NNEKA 4.54 10e9/L 11/12/2013 CBC 6836999 ABS LYMPH 2.14 10e9/L 11/12/2013 CBC 9364663 ABS MONO 0.72 10e9/L 11/12/2013 CBC 4840408 ABS EOS 0.14 10e9/L 11/12/2013 CBC 0809543 ABS BASO 0.06 10e9/L 11/12/2013 CBC 8795221 RDW-SD 46.0 fL 11/12/2013 LIPID GRP HDL TEST 66 MG/DL 11/12/2013 LIPID GRP TRIG 130 MG/DL 11/12/2013 LIPID GRP TEST LDL 108 MG/DL 11/12/2013 LIPID GRP CHOL 200 MG/DL 11/12/2013 LIPID GRP RCHOL/HDL 3.03 RATIO 11/12/2013 HS ENE ZOS 9636717 HS ENE ZOS IMMUNE 04/04/2013 A1C 7920265 A1C HPLC 57546-5 5.2 % 04/03/2013 GFR CALC 5557949 GFR AA >60 ML/MIN 03/31/2013 GFR CALC 0706225 GFR NON-AA >60 ML/MIN 03/31/2013 TSH 9667983 TSH 2.689 uIU/ML 03/31/2013 LIPID GRP HDL TEST 63 MG/DL 03/31/2013 LIPID GRP TRIG 157 MG/DL 03/31/2013 LIPID GRP TEST LDL 98 MG/DL 03/31/2013 LIPID GRP CHOL 192 MG/DL 03/31/2013 LIPID GRP RCHOL/HDL 3.05 RATIO 03/31/2013 FREE T4 7281785 FREE T4 1.19 NG/DL 03/31/2013 CHEM 14 6014999 AST 16 U/L 03/31/2013 CHEM 14 3620485 ALT 12 IU/L 03/31/2013 CHEM 14 2488098 BUN 17 MG/DL 03/31/2013 CHEM 14 2747525 ALBUMIN 4.5 GM/DL 03/31/2013 CHEM 14 6685113 CHLORIDE 98 MMOL/L 03/31/2013 CHEM 14 9436154 BILI TOT 0.7 MG/DL 03/31/2013 CHEM 14 5281284 ALK PHOS 53 U/L 03/31/2013 CHEM 14 8212216 SODIUM 137 MMOL/L 03/31/2013 CHEM 14 9630647 CREATININE 0.66 MG/DL 03/31/2013 CHEM 14 2753857 CALCIUM 9.6 MG/DL 03/31/2013 CHEM 14 6165025 POTASSIUM 4.2 MMOL/L 03/31/2013 CHEM 14 9354814 PROT TOT 6.7 GM/DL 03/31/2013 CHEM 14 3986811 GLUCOSE 101 MG/DL 03/31/2013 CHEM 14 3204879 BICARB 33 MMOL/L 03/31/2013 CHEM 14 5423528 ANION GAP 6 MEQ/L 03/31/2013 CBC 8085582 WBC 7.5 10e9/L 03/31/2013 CBC 2361121 RBC 4.39 10e12/L 03/31/2013 CBC 8520300 HGB 13.0 g/dL 03/31/2013 CBC 8787449 HCT DET 40.2 % 03/31/2013 CBC 1713472 MCV 91.6 fL 03/31/2013 CBC 4676353 MCH 29.6 pg 03/31/2013 CBC 2869991 MCHC 32.3 g/dL 03/31/2013 CBC 9174539 PLT 305 10e9/L 03/31/2013 CBC 8852567 MPV 10.4 fL 03/31/2013 CBC 2011032 NNEKA % 56.8 % 03/31/2013 CBC 2038045 LY % 30.3 % 03/31/2013 CBC 6313207 MON % 9.8 % 03/31/2013 CBC 5041561 EOS % 2.3 % 03/31/2013 CBC 4200995 BASO % 0.8 % 03/31/2013 CBC 7629687 RDW 13.2 % 03/31/2013 CBC 8263221 ABS NNEKA 4.26 10e9/L 03/31/2013 CBC 0712785 ABS LYMPH 2.27 10e9/L 03/31/2013 CBC 7211938 ABS MONO 0.74 10e9/L 03/31/2013 CBC 5788743 ABS EOS 0.17 10e9/L 03/31/2013 CBC 1008082 ABS BASO 0.06 10e9/L 03/31/2013 CBC 5445807 RDW-SD 43.2 fL 03/31/2013 LIPID GRP HDL TEST 49 MG/DL 09/11/2012 LIPID GRP TRIG 134 MG/DL 09/11/2012 LIPID GRP TEST LDL 81 MG/DL 09/11/2012 LIPID GRP CHOL 157 MG/DL 09/11/2012 LIPID GRP RCHOL/HDL 3.20 RATIO 09/11/2012 TSH 8766049 TSH 2.118 uIU/ML 09/11/2012 CBC 1024252 WBC 7.5 10e9/L 09/11/2012 CBC 2788818 RBC 3.99 10e12/L 09/11/2012 CBC 8401969 HGB 11.7 g/dL 09/11/2012 CBC 9997191 HCT DET 37.7 % 09/11/2012 CBC 6118626 MCV 94.5 fL 09/11/2012 CBC 5978828 MCH 29.3 pg 09/11/2012 CBC 1595762 MCHC 31.0 g/dL 09/11/2012 CBC 1433755 PLT 384 10e9/L 09/11/2012 CBC 7608866 MPV 11.0 fL 09/11/2012 CBC 6293428 NNEKA % 51.7 % 09/11/2012 CBC 3440372 LY % 35.2 % 09/11/2012 CBC 3660949 MON % 10.4 % 09/11/2012 CBC 2513980 EOS % 2.3 % 09/11/2012 CBC 7267215 BASO % 0.4 % 09/11/2012 CBC 8703902 RDW 14.2 % 09/11/2012 CBC 8145320 ABS NNEKA 3.88 10e9/L 09/11/2012 CBC 9569129 ABS LYMPH 2.64 10e9/L 09/11/2012 CBC 2212792 ABS MONO 0.78 10e9/L 09/11/2012 CBC 5549290 ABS EOS 0.17 10e9/L 09/11/2012 CBC 7039883 ABS BASO 0.03 10e9/L 09/11/2012 CBC 6592369 RDW-SD 47.1 fL 09/11/2012 CHEM 14 9642654 AST 16 U/L 09/11/2012 CHEM 14 4607722 ALT 15 IU/L 09/11/2012 CHEM 14 8590798 BUN 11 MG/DL 09/11/2012 CHEM 14 7015206 ALBUMIN 4.2 GM/DL 09/11/2012 CHEM 14 3967793 CHLORIDE 101 MMOL/L 09/11/2012 CHEM 14 20280229 BILI TOT 0.8 MG/DL 09/11/2012 CHEM 14 6503797 ALK PHOS 57 U/L 09/11/2012 CHEM 14 9558950 SODIUM 141 MMOL/L 09/11/2012 CHEM 14 9550872 CREATININE 0.62 MG/DL 09/11/2012 CHEM 14 7777783 CALCIUM 9.5 MG/DL 09/11/2012 CHEM 14 9692907 POTASSIUM 4.7 MMOL/L 09/11/2012 CHEM 14 9016873 PROT TOT 6.6 GM/DL 09/11/2012 CHEM 14 1658959 GLUCOSE 90 MG/DL 09/11/2012 CHEM 14 9975251 BICARB 32 MMOL/L 09/11/2012 CHEM 14 7132607 ANION GAP 8 MEQ/L 09/11/2012 A1C HPLC 4411596 A1C HPLC 38611-8 4.5 % 09/11/2012 GFR CALC 1901279 GFR AA >60 ML/MIN 09/11/2012 GFR CALC 5952621 GFR NON-AA >60 ML/MIN 09/11/2012 FREE T4 1218438 FREE T4 1.30 NG/DL 09/11/2012 BMP 1793616 GLUCOSE 93 MG/DL 04/16/2012 BMP 6555482 CREATININE 0.64 MG/DL 04/16/2012 BMP 5103862 BUN 12 MG/DL 04/16/2012 BMP 5475239 SODIUM 139 MMOL/L 04/16/2012 BMP 2725636 POTASSIUM 4.1 MMOL/L 04/16/2012 BMP 3538074 CHLORIDE 99 MMOL/L 04/16/2012 BMP 3705575 BICARB 32 MMOL/L 04/16/2012 BMP 2042257 ANION GAP 8 MEQ/L 04/16/2012 BMP 1566586 CALCIUM 9.8 MG/DL 04/16/2012 CBC 2864986 WBC 8.5 10e9/L 04/16/2012 CBC 3135142 RBC 3.98 10e12/L 04/16/2012 CBC 8303986 HGB 11.5 g/dL 04/16/2012 CBC 9684355 HCT DET 36.7 % 04/16/2012 CBC 8051793 MCV 92.2 fL 04/16/2012 CBC 5765329 MCH 28.9 pg 04/16/2012 CBC 3379605 MCHC 31.3 g/dL 04/16/2012 CBC 0598294 PLT 321 10e9/L 04/16/2012 CBC 8971439 MPV 10.2 fL 04/16/2012 CBC 2364092 NNEKA % 64.3 % 04/16/2012 CBC 5311595 LY % 24.3 % 04/16/2012 CBC 6816404 MON % 9.0 % 04/16/2012 CBC 5652397 EOS % 1.9 % 04/16/2012 CBC 4733387 BASO % 0.5 % 04/16/2012 CBC 5932662 RDW 13.7 % 04/16/2012 CBC 5642103 ABS NNEKA 5.47 10e9/L 04/16/2012 CBC 8772794 ABS LYMPH 2.07 10e9/L 04/16/2012 CBC 2068527 ABS MONO 0.77 10e9/L 04/16/2012 CBC 5104778 ABS EOS 0.16 10e9/L 04/16/2012 CBC 1128231 ABS BASO 0.04 10e9/L 04/16/2012 CBC 9628889 RDW-SD 44.6 fL 04/16/2012 GFR CALC 9291780 GFR AA >60 ML/MIN 04/16/2012 GFR CALC 4039859 GFR NON-AA >60 ML/MIN 04/16/2012 URINALYSIS NONAUTO W/O SCOPE 74943 Specific [place] 1.015 DateTime(Free Text in Aprima) URINALYSIS NONAUTO W/O SCOPE 50451 PH 6.0 DateTime(Free Text in Aprima) URINALYSIS NONAUTO W/O SCOPE 45367 GLUCOSE neg DateTime( Free Text in Aprima) URINALYSIS NONAUTO W/O SCOPE 03225 Protein neg DateTime( Free Text in Aprima) URINALYSIS NONAUTO W/O SCOPE 85505 Blood 1+ DateTime(Free Text in Aprima) URINALYSIS NONAUTO W/O SCOPE 57640 Bilirubin neg DateTime(Free Text in Aprima) URINALYSIS NONAUTO W/O SCOPE 59216 Ketones neg DateTime( Free Text in Aprima) URINALYSIS NONAUTO W/O SCOPE 73844 Urobilinogen neg DateTime(Free Text in Aprima) URINALYSIS NONAUTO W/O SCOPE 35609 Nitrite positive DateTime(Free Text in Aprima) URINALYSIS NONAUTO W/O SCOPE 84421 Leukocytes 1+ DateTime(Free Text in Aprima) UA 85942 Specific [place] 1.015 DateTime(Free Text in Aprima ) UA 62280 PH 5 DateTime(Free Text in Aprima) UA 89297 GLUCOSE neg DateTime(Free Text in Aprima) UA 39701 Protein neg DateTime(Free Text in Aprima) UA 93095 Blood neg DateTime(Free Text in Aprima) UA 31985 Bilirubin neg DateTime(Free Text in Aprima) UA 59168 Ketones neg DateTime(Free Text in Aprima) UA 59282 Urobilinogen neg DateTime(Free Text in Aprima) UA 69492 Nitrite neg DateTime(Free Text in Aprima) UA 52416 Leukocytes neg DateTime(Free Text in Aprima) URINALYSIS NONAUTO W/O SCOPE 68944 Specific [place] 1.010 DateTime(Free Text in Aprima) URINALYSIS NONAUTO W/O SCOPE 42540 PH 5.0 DateTime(Free Text in Aprima) URINALYSIS NONAUTO W/O SCOPE 18116 GLUCOSE NEG DateTime( Free Text in Aprima) URINALYSIS NONAUTO W/O SCOPE 53354 Protein NEG DateTime( Free Text in Aprima) URINALYSIS NONAUTO W/O SCOPE 05994 Blood NEG DateTime(Free Text in Aprima) URINALYSIS NONAUTO W/O SCOPE 53668 Bilirubin NEG DateTime(Free Text in Aprima) URINALYSIS NONAUTO W/O SCOPE 12212 Ketones NEG DateTime( Free Text in Aprima) URINALYSIS NONAUTO W/O SCOPE 56514 Urobilinogen NEG DateTime(Free Text in Aprima) URINALYSIS NONAUTO W/O SCOPE 72001 Nitrite NEG DateTime( Free Text in Aprima) URINALYSIS NONAUTO W/O SCOPE 49785 Leukocytes ++ DateTime(Free Text in Aprima) URINALYSIS NONAUTO W/O SCOPE 91198 Specific [place] 1.010 DateTime(Free Text in Aprima) URINALYSIS NONAUTO W/O SCOPE 33824 PH 6.0 DateTime(Free Text in Aprima) URINALYSIS NONAUTO W/O SCOPE 06350 GLUCOSE NEG DateTime( Free Text in Aprima) URINALYSIS NONAUTO W/O SCOPE 04667 Protein NEG DateTime( Free Text in Aprima) URINALYSIS NONAUTO W/O SCOPE 68178 Blood NEG DateTime(Free Text in Aprima) URINALYSIS NONAUTO W/O SCOPE 56815 Bilirubin NEG DateTime(Free Text in Aprima) URINALYSIS NONAUTO W/O SCOPE 18566 Ketones NEG DateTime( Free Text in Aprima) URINALYSIS NONAUTO W/O SCOPE 79067 Urobilinogen NEG DateTime(Free Text in Aprima) URINALYSIS NONAUTO W/O SCOPE 52847 Nitrite NEG DateTime( Free Text in Aprima) URINALYSIS NONAUTO W/O SCOPE 13315 Leukocytes NEG DateTime(Free Text in Aprima) URINALYSIS NONAUTO W/O SCOPE 87342 Specific [place] 1.010 DateTime(Free Text in Aprima) URINALYSIS NONAUTO W/O SCOPE 11520 PH 5 DateTime(Free Text in Aprima) URINALYSIS NONAUTO W/O SCOPE 25757 GLUCOSE neg DateTime( Free Text in Aprima) URINALYSIS NONAUTO W/O SCOPE 36553 Protein neg DateTime( Free Text in Aprima) URINALYSIS NONAUTO W/O SCOPE 03992 Blood neg DateTime(Free Text in Aprima) URINALYSIS NONAUTO W/O SCOPE 74283 Bilirubin neg DateTime(Free Text in Aprima) URINALYSIS NONAUTO W/O SCOPE 81250 Ketones neg DateTime( Free Text in Aprima) URINALYSIS NONAUTO W/O SCOPE 49161 Urobilinogen neg DateTime(Free Text in Aprima) URINALYSIS NONAUTO W/O SCOPE 65516 Nitrite neg DateTime( Free Text in Aprima) URINALYSIS NONAUTO W/O SCOPE 46597 Leukocytes 1+ DateTime(Free Text in Aprima) URINALYSIS NONAUTO W/O SCOPE 51107 Specific [place] 1.015 DateTime(Free Text in Aprima) URINALYSIS NONAUTO W/O SCOPE 83369 PH 5 DateTime(Free Text in Aprima) URINALYSIS NONAUTO W/O SCOPE 68308 GLUCOSE neg DateTime( Free Text in Aprima) URINALYSIS NONAUTO W/O SCOPE 00490 Protein neg DateTime( Free Text in Aprima) URINALYSIS NONAUTO W/O SCOPE 18549 Blood neg DateTime(Free Text in Aprima) URINALYSIS NONAUTO W/O SCOPE 98180 Bilirubin neg DateTime(Free Text in Aprima) URINALYSIS NONAUTO W/O SCOPE 79248 Ketones neg DateTime( Free Text in Aprima) URINALYSIS NONAUTO W/O SCOPE 99384 Urobilinogen neg DateTime(Free Text in Aprima) URINALYSIS NONAUTO W/O SCOPE 83741 Nitrite neg DateTime( Free Text in Aprima) URINALYSIS NONAUTO W/O SCOPE 81132 Leukocytes neg DateTime(Free Text in Aprima) URINALYSIS NONAUTO W/O SCOPE 90195 Specific [place] 1.015 DateTime(Free Text in Aprima) URINALYSIS NONAUTO W/O SCOPE 76484 PH 7 DateTime(Free Text in Aprima) URINALYSIS NONAUTO W/O SCOPE 69782 GLUCOSE DateTime( Free Text in Aprima) URINALYSIS NONAUTO W/O SCOPE 28206 Protein DateTime( Free Text in Aprima) URINALYSIS NONAUTO W/O SCOPE 57849 Blood DateTime(Free Text in Aprima) URINALYSIS NONAUTO W/O SCOPE 52330 Bilirubin DateTime( Free Text in Aprima) URINALYSIS NONAUTO W/O SCOPE 73774 Ketones DateTime( Free Text in Aprima) URINALYSIS NONAUTO W/O SCOPE 41333 Urobilinogen DateTime (Free Text in Aprima) URINALYSIS NONAUTO W/O SCOPE 18858 Nitrite DateTime( Free Text in Aprima) URINALYSIS NONAUTO W/O SCOPE 65624 Leukocytes DateTime( Free Text in Novima) UA 37914 Specific [place] 6 DateTime(Free Text in Novima) UA 05976 PH 1.020 DateTime(Free Text in Novima) UA 91828 GLUCOSE N DateTime(Free Text in Novima) UA 13942 Protein N DateTime(Free Text in Novima) UA 40996 Blood N DateTime(Free Text in Aprima) UA 53816 Bilirubin N DateTime(Free Text in Aprima) UA 33357 Ketones N DateTime(Free Text in Novima) UA 67600 Urobilinogen N DateTime(Free Text in Novima) UA 02865 Nitrite POSITIVE DateTime(Free Text in ) UA 90686 Leukocytes SMALL DateTime(Free Text in ) Review of Systems System Result Effective Dates Constitutional No recent illness 2018 Constitutional No anorexia 09/03/2018 Constitutional No night sweats 2018 Constitutional No chills 09/03/2018 Constitutional No diaphoresis 09/03/2018 Constitutional No fatigue 09/03/2018 Constitutional No fever 09/03/2018 Constitutional insomnia 09/03/2018 Constitutional No malaise 09/03/2018 Eyes No eye discharge 09/03/2018 Eyes No eye erythema 09/03/2018 Ears/Nose/Throat/Neck No dizziness 2018 Ears/Nose/Throat/Neck No headache 2018 Ears/Nose/Throat/Neck No nasal allergies 09/03/2018 Ears/Nose/Throat/Neck No nasal discharge 09/03/2018 Ears/Nose/Throat/Neck No sore throat 03/2019 Ears/Nose/Throat/Neck No sinus congestion 09/03/2018 Cardiovascular No chest pain/pressure 03/2019 Cardiovascular No dyspnea 09/03/2018 Cardiovascular edema 09/03/2018 Cardiovascular No exercise intolerance Cardiovascular No fatigue 09/03/2018 Cardiovascular hypertension 09/03/2018 Respiratory No productive sputum 2018 Respiratory No chest congestion 2018 Respiratory No cough 09/03/2018 Respiratory dyspnea on exertion 2018 Respiratory No dyspnea 09/03/2018 Gastrointestinal No abdominal pain 2018 Gastrointestinal No constipation 2018 Gastrointestinal No nausea 09/03/2018 Gastrointestinal No vomiting 09/03/2018 Genitourinary/Nephrology No dysuria 09/03 Musculoskeletal No stiffness 09/03/2018 Musculoskeletal No swelling 09/03/2018 Musculoskeletal joint complaint 2018 Musculoskeletal No muscle weakness 2018 Musculoskeletal No myalgias 09/03/2018 Dermatologic No rash 09/03/2018 Dermatologic No scar 09/03/2018 Neurologic No dizziness 09/03/2018 Neurologic No headache 09/03/2018 Neurologic No neck pain 09/03/2018 Neurologic No syncope 09/03/2018 Psychiatric anxiety 09/03/2018 Psychiatric depression 09/03/2018 Musculoskeletal back pain 09/03/2018 Constitutional No recent illness 2017 Constitutional No anorexia 05/29/2018 Constitutional No night sweats 2017 Constitutional No chills 05/29/2018 Constitutional No diaphoresis 05/29/2018 Constitutional No fatigue 05/29/2018 Constitutional No fever 05/29/2018 Constitutional insomnia 05/29/2018 Constitutional No malaise 05/29/2018 Eyes No eye discharge 05/29/2018 Eyes No eye erythema 05/29/2018 Ears/Nose/Throat/Neck No dizziness 2017 Ears/Nose/Throat/Neck No headache 2017 Ears/Nose/Throat/Neck No nasal allergies 05/29/2018 Ears/Nose/Throat/Neck No nasal discharge 05/29/2018 Ears/Nose/Throat/Neck No sore throat 10/2017 Ears/Nose/Throat/Neck No sinus congestion 05/29/2018 Cardiovascular No chest pain/pressure 10/2017 Cardiovascular No dyspnea 05/29/2018 Cardiovascular edema 05/29/2018 Cardiovascular exercise intolerance 05/29 Cardiovascular fatigue 05/29/2018 Cardiovascular hypertension 05/29/2018 Respiratory No productive sputum 2017 Respiratory No chest congestion 2017 Respiratory No cough 05/29/2018 Respiratory dyspnea on exertion 2017 Respiratory No dyspnea 05/29/2018 Gastrointestinal No abdominal pain 2017 Gastrointestinal No constipation 2017 Gastrointestinal No nausea 05/29/2018 Gastrointestinal No vomiting 05/29/2018 Genitourinary/Nephrology No dysuria 05/29 Musculoskeletal No stiffness 05/29/2018 Musculoskeletal No swelling 05/29/2018 Musculoskeletal joint complaint 2017 Musculoskeletal No muscle weakness 2017 Musculoskeletal No myalgias 05/29/2018 Dermatologic No rash 05/29/2018 Dermatologic No scar 05/29/2018 Neurologic No dizziness 05/29/2018 Neurologic No headache 05/29/2018 Neurologic No neck pain 05/29/2018 Neurologic No syncope 05/29/2018 Psychiatric anxiety 05/29/2018 Psychiatric depression 05/29/2018 Musculoskeletal back pain 05/29/2018 Gastrointestinal No diarrhea 05/29/2018 Constitutional No recent illness 2017 Constitutional No anorexia 04/25/2018 Constitutional No night sweats 2017 Constitutional No chills 04/25/2018 Constitutional No diaphoresis 04/25/2018 Constitutional No fatigue 04/25/2018 Constitutional No fever 04/25/2018 Constitutional No malaise 04/25/2018 Eyes No eye discharge 04/25/2018 Eyes No eye erythema 04/25/2018 Ears/Nose/Throat/Neck No dizziness 2017 Ears/Nose/Throat/Neck No headache 2017 Ears/Nose/Throat/Neck No nasal allergies 04/25/2018 Ears/Nose/Throat/Neck No nasal discharge 04/25/2018 Ears/Nose/Throat/Neck No sore throat Ears/Nose/Throat/Neck No sinus congestion 04/25/2018 Cardiovascular No chest pain/pressure Cardiovascular No dyspnea 04/25/2018 Cardiovascular edema 04/25/2018 Cardiovascular No exercise intolerance Cardiovascular No fatigue 04/25/2018 Cardiovascular hypertension 04/25/2018 Respiratory No productive sputum 2017 Respiratory No chest congestion 2017 Respiratory No cough 04/25/2018 Respiratory No dyspnea 04/25/2018 Gastrointestinal No abdominal pain 2017 Gastrointestinal No constipation 2017 Gastrointestinal No nausea 04/25/2018 Gastrointestinal No vomiting 04/25/2018 Genitourinary/Nephrology No dysuria 04/25 Musculoskeletal No stiffness 04/25/2018 Musculoskeletal No swelling 04/25/2018 Musculoskeletal joint complaint 2017 Musculoskeletal No muscle weakness 2017 Musculoskeletal No myalgias 04/25/2018 Dermatologic No rash 04/25/2018 Dermatologic No scar 04/25/2018 Neurologic No dizziness 04/25/2018 Neurologic No headache 04/25/2018 Neurologic No neck pain 04/25/2018 Neurologic No syncope 04/25/2018 Psychiatric anxiety 04/25/2018 Psychiatric depression 04/25/2018 Dermatologic sores 04/25/2018 Constitutional No recent illness 2017 Constitutional No chills 02/06/2018 Constitutional No diaphoresis 02/06/2018 Constitutional No fever 02/06/2018 Eyes No eye erythema 02/06/2018 Ears/Nose/Throat/Neck No nasal discharge 02/06/2018 Ears/Nose/Throat/Neck nasal allergies Ears/Nose/Throat/Neck hearing loss 2017 Ears/Nose/Throat/Neck cerumen 02/06/2018 Cardiovascular No chest pain/pressure Respiratory No cough 02/06/2018 Neurologic No alteration of consciousness 02/06/2018 Neurologic No mental status change 2017 Constitutional No recent illness 2017 Constitutional No anorexia 01/23/2018 Constitutional No night sweats 2017 Constitutional No chills 01/23/2018 Constitutional No diaphoresis 01/23/2018 Constitutional No fatigue 01/23/2018 Constitutional No fever 01/23/2018 Constitutional insomnia 01/23/2018 Constitutional No malaise 01/23/2018 Eyes No eye discharge 01/23/2018 Eyes No eye erythema 01/23/2018 Ears/Nose/Throat/Neck No dizziness 2017 Ears/Nose/Throat/Neck No headache 2017 Ears/Nose/Throat/Neck No nasal allergies 01/23/2018 Ears/Nose/Throat/Neck No nasal discharge 01/23/2018 Ears/Nose/Throat/Neck No sore throat Ears/Nose/Throat/Neck No sinus congestion 01/23/2018 Cardiovascular No chest pain/pressure Cardiovascular No dyspnea 01/23/2018 Cardiovascular edema 01/23/2018 Cardiovascular No exercise intolerance Cardiovascular No fatigue 01/23/2018 Cardiovascular hypertension 01/23/2018 Respiratory No productive sputum 2017 Respiratory No chest congestion 2017 Respiratory No cough 01/23/2018 Respiratory dyspnea on exertion 2017 Respiratory No dyspnea 01/23/2018 Gastrointestinal No abdominal pain 2017 Gastrointestinal No constipation 2017 Gastrointestinal diarrhea 01/23/2018 Gastrointestinal No nausea 01/23/2018 Gastrointestinal No vomiting 01/23/2018 Genitourinary/Nephrology No dysuria 01/23 Musculoskeletal No stiffness 01/23/2018 Musculoskeletal No swelling 01/23/2018 Musculoskeletal joint complaint 2017 Musculoskeletal No muscle weakness 2017 Musculoskeletal No myalgias 01/23/2018 Dermatologic No rash 01/23/2018 Dermatologic No scar 01/23/2018 Neurologic No dizziness 01/23/2018 Neurologic No headache 01/23/2018 Neurologic No neck pain 01/23/2018 Neurologic No syncope 01/23/2018 Psychiatric anxiety 01/23/2018 Psychiatric depression 01/23/2018 Constitutional recent illness 09/26/2017 Constitutional No fatigue 09/26/2017 Psychiatric No anxiety 09/26/2017 Psychiatric No depression 09/26/2017 Respiratory No cough 09/26/2017 Cardiovascular fatigue 09/26/2017 Musculoskeletal stiffness 09/26/2017 Musculoskeletal arthralgia(s) 09/26/2017 Constitutional recent illness 09/12/2017 Constitutional No anorexia 09/12/2017 Constitutional No night sweats 2017 Constitutional No chills 09/12/2017 Constitutional No diaphoresis 09/12/2017 Constitutional No fatigue 09/12/2017 Constitutional No fever 09/12/2017 Constitutional insomnia 09/12/2017 Constitutional No malaise 09/12/2017 Eyes No eye discharge 09/12/2017 Eyes No eye erythema 09/12/2017 Ears/Nose/Throat/Neck No dizziness 2017 Ears/Nose/Throat/Neck headache 2017 Ears/Nose/Throat/Neck No nasal allergies 09/12/2017 Ears/Nose/Throat/Neck No nasal discharge 09/12/2017 Ears/Nose/Throat/Neck sore throat 2017 Ears/Nose/Throat/Neck sinus congestion Cardiovascular No chest pain/pressure Cardiovascular No dyspnea 09/12/2017 Cardiovascular edema 09/12/2017 Cardiovascular No exercise intolerance Cardiovascular No fatigue 09/12/2017 Cardiovascular hypertension 09/12/2017 Respiratory No productive sputum 2017 Respiratory No chest congestion 2017 Respiratory No cough 09/12/2017 Respiratory dyspnea on exertion 2017 Respiratory No dyspnea 09/12/2017 Gastrointestinal No abdominal pain 2017 Gastrointestinal No constipation 2017 Gastrointestinal No diarrhea 09/12/2017 Gastrointestinal No nausea 09/12/2017 Gastrointestinal No vomiting 09/12/2017 Genitourinary/Nephrology No dysuria 09/12 Musculoskeletal stiffness 09/12/2017 Musculoskeletal No swelling 09/12/2017 Musculoskeletal joint complaint 2017 Musculoskeletal No muscle weakness 2017 Musculoskeletal No myalgias 09/12/2017 Dermatologic No rash 09/12/2017 Dermatologic No scar 09/12/2017 Neurologic No dizziness 09/12/2017 Neurologic No headache 09/12/2017 Neurologic No neck pain 09/12/2017 Neurologic No syncope 09/12/2017 Psychiatric anxiety 09/12/2017 Psychiatric depression 09/12/2017 Ears/Nose/Throat/Neck No otalgia 2017 Neurologic No alteration of consciousness 09/12/2017 Constitutional recent illness 08/31/2017 Constitutional fatigue 08/31/2017 Constitutional No fever 08/31/2017 Eyes No eye discharge 08/31/2017 Eyes No eye erythema 08/31/2017 Ears/Nose/Throat/Neck nasal discharge 12/2017 Ears/Nose/Throat/Neck sinus congestion Ears/Nose/Throat/Neck sore throat 2017 Cardiovascular No chest pain/pressure 12/2017 Cardiovascular No dyspnea 08/31/2017 Respiratory No productive sputum 2017 Respiratory chest congestion 08/31/2017 Respiratory cough 08/31/2017 Gastrointestinal No diarrhea 08/31/2017 Gastrointestinal No nausea 08/31/2017 Gastrointestinal No vomiting 08/31/2017 Musculoskeletal No joint complaint 2017 Dermatologic No rash 08/31/2017 Neurologic No alteration of consciousness 08/31/2017 Constitutional No chills 08/31/2017 Constitutional No diaphoresis 08/31/2017 Ears/Nose/Throat/Neck nasal allergies 12/2017 Respiratory No dyspnea 08/31/2017 Constitutional recent illness 08/09/2017 Constitutional No anorexia 08/09/2017 Constitutional No night sweats 2016 Constitutional chills 08/09/2017 Constitutional No diaphoresis 08/09/2017 Constitutional fatigue 08/09/2017 Constitutional No fever 08/09/2017 Constitutional No insomnia 08/09/2017 Constitutional No weight loss 08/09/2017 Constitutional No weight gain 08/09/2017 Constitutional No malaise 08/09/2017 Eyes No eye discharge 08/09/2017 Eyes No eye erythema 08/09/2017 Ears/Nose/Throat/Neck headache 2016 Ears/Nose/Throat/Neck nasal discharge Ears/Nose/Throat/Neck No otalgia 2016 Ears/Nose/Throat/Neck sinus congestion Ears/Nose/Throat/Neck sore throat 2016 Cardiovascular No chest pain/pressure Cardiovascular No dyspnea 08/09/2017 Respiratory No productive sputum 2016 Respiratory chest congestion 08/09/2017 Respiratory cough 08/09/2017 Gastrointestinal No vomiting 08/09/2017 Gastrointestinal No nausea 08/09/2017 Gastrointestinal No diarrhea 08/09/2017 Genitourinary/Nephrology No dysuria 08/09 Musculoskeletal No joint complaint 2016 Dermatologic No rash 08/09/2017 Neurologic No alteration of consciousness 08/09/2017 Constitutional No recent illness 2016 Constitutional No anorexia 05/07/2017 Constitutional No night sweats 2016 Constitutional No chills 05/07/2017 Constitutional No diaphoresis 05/07/2017 Constitutional No fatigue 05/07/2017 Constitutional No fever 05/07/2017 Constitutional insomnia 05/07/2017 Constitutional No malaise 05/07/2017 Eyes No eye discharge 05/07/2017 Eyes No eye erythema 05/07/2017 Ears/Nose/Throat/Neck No dizziness 2016 Ears/Nose/Throat/Neck No headache 2016 Ears/Nose/Throat/Neck No nasal allergies 05/07/2017 Ears/Nose/Throat/Neck No nasal discharge 05/07/2017 Ears/Nose/Throat/Neck No sore throat 06/2017 Ears/Nose/Throat/Neck No sinus congestion 05/07/2017 Cardiovascular No chest pain/pressure 06/2017 Cardiovascular No dyspnea 05/07/2017 Cardiovascular edema 05/07/2017 Cardiovascular No exercise intolerance Cardiovascular No fatigue 05/07/2017 Cardiovascular hypertension 05/07/2017 Respiratory No productive sputum 2016 Respiratory No chest congestion 2016 Respiratory No cough 05/07/2017 Respiratory dyspnea on exertion 2016 Respiratory No dyspnea 05/07/2017 Gastrointestinal No abdominal pain 2016 Gastrointestinal No constipation 2016 Gastrointestinal diarrhea 05/07/2017 Gastrointestinal No nausea 05/07/2017 Gastrointestinal No vomiting 05/07/2017 Genitourinary/Nephrology No dysuria 05/07 Musculoskeletal No stiffness 05/07/2017 Musculoskeletal No swelling 05/07/2017 Musculoskeletal joint complaint 2016 Musculoskeletal No muscle weakness 2016 Musculoskeletal No myalgias 05/07/2017 Dermatologic No rash 05/07/2017 Dermatologic No scar 05/07/2017 Neurologic No dizziness 05/07/2017 Neurologic No headache 05/07/2017 Neurologic No neck pain 05/07/2017 Neurologic No syncope 05/07/2017 Psychiatric anxiety 05/07/2017 Psychiatric depression 05/07/2017 Constitutional No recent illness 2016 Constitutional No chills 04/12/2017 Constitutional No diaphoresis 04/12/2017 Constitutional No fever 04/12/2017 Eyes No eye erythema 04/12/2017 Ears/Nose/Throat/Neck No nasal discharge 04/12/2017 Cardiovascular No chest pain/pressure Respiratory No cough 04/12/2017 Neurologic No alteration of consciousness 04/12/2017 Neurologic No mental status change 2016 Constitutional recent illness 02/05/2017 Constitutional No anorexia 02/05/2017 Constitutional No night sweats 2016 Constitutional No chills 02/05/2017 Constitutional diaphoresis 02/05/2017 Constitutional fatigue 02/05/2017 Constitutional No fever 02/05/2017 Constitutional No insomnia 02/05/2017 Constitutional No malaise 02/05/2017 Constitutional No weight loss 02/05/2017 Constitutional No weight gain 02/05/2017 Eyes No eye discharge 02/05/2017 Eyes No eye erythema 02/05/2017 Ears/Nose/Throat/Neck No dizziness 2016 Ears/Nose/Throat/Neck No headache 2016 Cardiovascular No chest pain/pressure 07/2017 Cardiovascular No dyspnea 02/05/2017 Cardiovascular edema 02/05/2017 Respiratory No productive sputum 2016 Respiratory No chest congestion 2016 Respiratory cough 02/05/2017 Gastrointestinal No abdominal pain 2016 Gastrointestinal constipation 02/05/2017 Gastrointestinal No diarrhea 02/05/2017 Gastrointestinal gastroesophageal reflux 02/05/2017 Genitourinary/Nephrology dysuria 2016 Musculoskeletal joint complaint 2016 Dermatologic No rash 02/05/2017 Neurologic No alteration of consciousness 02/05/2017 Psychiatric anxiety 02/05/2017 Constitutional recent illness 02/02/2017 Constitutional No anorexia 02/02/2017 Constitutional No night sweats 2016 Constitutional No chills 02/02/2017 Constitutional diaphoresis 02/02/2017 Constitutional fatigue 02/02/2017 Constitutional No fever 02/02/2017 Constitutional No insomnia 02/02/2017 Constitutional No malaise 02/02/2017 Constitutional No weight loss 02/02/2017 Constitutional No weight gain 02/02/2017 Eyes No eye discharge 02/02/2017 Eyes No eye erythema 02/02/2017 Ears/Nose/Throat/Neck No dizziness 2016 Ears/Nose/Throat/Neck No headache 2016 Cardiovascular No chest pain/pressure 04/2017 Cardiovascular No dyspnea 02/02/2017 Cardiovascular edema 02/02/2017 Respiratory No productive sputum 2016 Respiratory No chest congestion 2016 Respiratory cough 02/02/2017 Gastrointestinal No abdominal pain 2016 Gastrointestinal constipation 02/02/2017 Gastrointestinal No diarrhea 02/02/2017 Genitourinary/Nephrology dysuria 2016 Musculoskeletal joint complaint 2016 Gastrointestinal gastroesophageal reflux 02/02/2017 Dermatologic No rash 02/02/2017 Neurologic No alteration of consciousness 02/02/2017 Psychiatric anxiety 02/02/2017 Constitutional recent illness 01/15/2017 Constitutional No anorexia 01/15/2017 Constitutional No chills 01/15/2017 Constitutional No night sweats 2016 Constitutional No fatigue 01/15/2017 Constitutional No diaphoresis 01/15/2017 Constitutional No fever 01/15/2017 Constitutional No insomnia 01/15/2017 Constitutional No weight gain 01/15/2017 Constitutional No weight loss 01/15/2017 Constitutional No malaise 01/15/2017 Eyes No eye discharge 01/15/2017 Eyes No eye erythema 01/15/2017 Ears/Nose/Throat/Neck nasal allergies Ears/Nose/Throat/Neck nasal discharge Ears/Nose/Throat/Neck sinus congestion Ears/Nose/Throat/Neck No sore throat Cardiovascular No chest pain/pressure Cardiovascular No edema 01/15/2017 Respiratory productive sputum 01/15/2017 Respiratory chest congestion 01/15/2017 Respiratory cough 01/15/2017 Gastrointestinal No abdominal pain 2016 Musculoskeletal joint complaint 2016 Dermatologic No rash 01/15/2017 Neurologic No alteration of consciousness 01/15/2017 Constitutional No recent illness 2016 Constitutional No chills 01/04/2017 Constitutional No diaphoresis 01/04/2017 Constitutional No fatigue 01/04/2017 Constitutional No fever 01/04/2017 Constitutional insomnia 01/04/2017 Constitutional No malaise 01/04/2017 Eyes No eye discharge 01/04/2017 Eyes No eye erythema 01/04/2017 Ears/Nose/Throat/Neck No dizziness 2016 Ears/Nose/Throat/Neck No headache 2016 Ears/Nose/Throat/Neck No nasal allergies 01/04/2017 Ears/Nose/Throat/Neck No nasal discharge 01/04/2017 Ears/Nose/Throat/Neck No sore throat 06/2017 Ears/Nose/Throat/Neck No sinus congestion 01/04/2017 Cardiovascular No chest pain/pressure 06/2017 Cardiovascular No dyspnea 01/04/2017 Cardiovascular edema 01/04/2017 Cardiovascular No exercise intolerance Cardiovascular No fatigue 01/04/2017 Cardiovascular hypertension 01/04/2017 Respiratory No productive sputum 2016 Respiratory No chest congestion 2016 Respiratory No cough 01/04/2017 Respiratory dyspnea on exertion 2016 Respiratory No dyspnea 01/04/2017 Gastrointestinal No abdominal pain 2016 Gastrointestinal No constipation 2016 Gastrointestinal No nausea 01/04/2017 Gastrointestinal No vomiting 01/04/2017 Genitourinary/Nephrology No dysuria 01/04 Musculoskeletal No stiffness 01/04/2017 Musculoskeletal No swelling 01/04/2017 Musculoskeletal joint complaint 2016 Musculoskeletal No muscle weakness 2016 Musculoskeletal No myalgias 01/04/2017 Dermatologic No rash 01/04/2017 Dermatologic No scar 01/04/2017 Neurologic No dizziness 01/04/2017 Neurologic No headache 01/04/2017 Neurologic No neck pain 01/04/2017 Neurologic No syncope 01/04/2017 Psychiatric anxiety 01/04/2017 Psychiatric depression 01/04/2017 Constitutional No recent illness 2016 Constitutional No chills 09/07/2016 Constitutional No diaphoresis 09/07/2016 Constitutional No fatigue 09/07/2016 Constitutional No fever 09/07/2016 Constitutional insomnia 09/07/2016 Constitutional No malaise 09/07/2016 Eyes No eye discharge 09/07/2016 Eyes No eye erythema 09/07/2016 Ears/Nose/Throat/Neck No dizziness 2016 Ears/Nose/Throat/Neck No headache 2016 Ears/Nose/Throat/Neck No nasal allergies 09/07/2016 Ears/Nose/Throat/Neck No nasal discharge 09/07/2016 Ears/Nose/Throat/Neck No sore throat 07/2017 Ears/Nose/Throat/Neck No sinus congestion 09/07/2016 Cardiovascular No chest pain/pressure 07/2017 Cardiovascular No dyspnea 09/07/2016 Cardiovascular edema 09/07/2016 Cardiovascular No exercise intolerance Cardiovascular No fatigue 09/07/2016 Cardiovascular hypertension 09/07/2016 Respiratory No productive sputum 2016 Respiratory No chest congestion 2016 Respiratory No cough 09/07/2016 Respiratory dyspnea on exertion 2016 Respiratory No dyspnea 09/07/2016 Gastrointestinal No abdominal pain 2016 Gastrointestinal No constipation 2016 Gastrointestinal No nausea 09/07/2016 Gastrointestinal No vomiting 09/07/2016 Genitourinary/Nephrology No dysuria 09/07 Musculoskeletal No stiffness 09/07/2016 Musculoskeletal No swelling 09/07/2016 Musculoskeletal joint complaint 2016 Musculoskeletal No muscle weakness 2016 Musculoskeletal No myalgias 09/07/2016 Dermatologic No rash 09/07/2016 Dermatologic No scar 09/07/2016 Neurologic No dizziness 09/07/2016 Neurologic No headache 09/07/2016 Neurologic No neck pain 09/07/2016 Neurologic No syncope 09/07/2016 Psychiatric anxiety 09/07/2016 Psychiatric depression 09/07/2016 Constitutional No recent illness 2015 Constitutional No chills 07/06/2016 Constitutional No diaphoresis 07/06/2016 Constitutional No fatigue 07/06/2016 Constitutional No fever 07/06/2016 Constitutional insomnia 07/06/2016 Constitutional No malaise 07/06/2016 Eyes No eye discharge 07/06/2016 Eyes No eye erythema 07/06/2016 Ears/Nose/Throat/Neck No dizziness 2015 Ears/Nose/Throat/Neck No headache 2015 Ears/Nose/Throat/Neck No nasal allergies 07/06/2016 Ears/Nose/Throat/Neck No nasal discharge 07/06/2016 Ears/Nose/Throat/Neck No sore throat 05/2016 Ears/Nose/Throat/Neck No sinus congestion 07/06/2016 Cardiovascular No chest pain/pressure 05/2016 Cardiovascular No dyspnea 07/06/2016 Cardiovascular edema 07/06/2016 Cardiovascular No exercise intolerance Cardiovascular No fatigue 07/06/2016 Cardiovascular hypertension 07/06/2016 Respiratory No productive sputum 2015 Respiratory No chest congestion 2015 Respiratory No cough 07/06/2016 Respiratory dyspnea on exertion 2015 Respiratory No dyspnea 07/06/2016 Gastrointestinal No abdominal pain 2015 Gastrointestinal No constipation 2015 Gastrointestinal diarrhea 07/06/2016 Gastrointestinal No nausea 07/06/2016 Gastrointestinal No vomiting 07/06/2016 Genitourinary/Nephrology No dysuria 07/06 Musculoskeletal No stiffness 07/06/2016 Musculoskeletal No swelling 07/06/2016 Musculoskeletal joint complaint 2015 Musculoskeletal No muscle weakness 2015 Musculoskeletal No myalgias 07/06/2016 Dermatologic No rash 07/06/2016 Dermatologic No scar 07/06/2016 Neurologic No dizziness 07/06/2016 Neurologic No headache 07/06/2016 Neurologic No neck pain 07/06/2016 Neurologic No syncope 07/06/2016 Psychiatric anxiety 07/06/2016 Psychiatric depression 07/06/2016 Constitutional No recent illness 2015 Constitutional No chills 06/08/2016 Constitutional No diaphoresis 06/08/2016 Constitutional No fatigue 06/08/2016 Constitutional No fever 06/08/2016 Constitutional insomnia 06/08/2016 Constitutional No malaise 06/08/2016 Eyes No eye discharge 06/08/2016 Eyes No eye erythema 06/08/2016 Ears/Nose/Throat/Neck No dizziness 2015 Ears/Nose/Throat/Neck No headache 2015 Ears/Nose/Throat/Neck No nasal allergies 06/08/2016 Ears/Nose/Throat/Neck No nasal discharge 06/08/2016 Ears/Nose/Throat/Neck No sore throat Ears/Nose/Throat/Neck No sinus congestion 06/08/2016 Cardiovascular No chest pain/pressure Cardiovascular No dyspnea 06/08/2016 Cardiovascular edema 06/08/2016 Cardiovascular No exercise intolerance Cardiovascular No fatigue 06/08/2016 Cardiovascular hypertension 06/08/2016 Respiratory No productive sputum 2015 Respiratory No chest congestion 2015 Respiratory No cough 06/08/2016 Respiratory dyspnea on exertion 2015 Respiratory No dyspnea 06/08/2016 Gastrointestinal No abdominal pain 2015 Gastrointestinal No constipation 2015 Gastrointestinal diarrhea 06/08/2016 Gastrointestinal No nausea 06/08/2016 Gastrointestinal No vomiting 06/08/2016 Genitourinary/Nephrology No dysuria 06/08 Musculoskeletal No stiffness 06/08/2016 Musculoskeletal No swelling 06/08/2016 Musculoskeletal joint complaint 2015 Musculoskeletal No muscle weakness 2015 Musculoskeletal No myalgias 06/08/2016 Dermatologic No rash 06/08/2016 Dermatologic No scar 06/08/2016 Neurologic No dizziness 06/08/2016 Neurologic No headache 06/08/2016 Neurologic No neck pain 06/08/2016 Neurologic No syncope 06/08/2016 Psychiatric anxiety 06/08/2016 Psychiatric depression 06/08/2016 Constitutional No recent illness 2015 Constitutional No anorexia 04/06/2016 Constitutional No night sweats 2015 Constitutional No chills 04/06/2016 Constitutional No diaphoresis 04/06/2016 Constitutional No fatigue 04/06/2016 Constitutional No fever 04/06/2016 Constitutional insomnia 04/06/2016 Constitutional No malaise 04/06/2016 Constitutional No weight loss 04/06/2016 Constitutional No weight gain 04/06/2016 Eyes No eye discharge 04/06/2016 Eyes No eye erythema 04/06/2016 Ears/Nose/Throat/Neck No dizziness 2015 Ears/Nose/Throat/Neck No headache 2015 Ears/Nose/Throat/Neck No nasal allergies 04/06/2016 Ears/Nose/Throat/Neck No nasal discharge 04/06/2016 Ears/Nose/Throat/Neck No sinus congestion 04/06/2016 Ears/Nose/Throat/Neck No sore throat 06/2016 Cardiovascular No chest pain/pressure 06/2016 Cardiovascular No dyspnea 04/06/2016 Cardiovascular edema 04/06/2016 Cardiovascular No exercise intolerance Cardiovascular No fatigue 04/06/2016 Cardiovascular hypertension 04/06/2016 Respiratory No productive sputum 2015 Respiratory No chest congestion 2015 Respiratory No cough 04/06/2016 Respiratory dyspnea on exertion 2015 Respiratory No dyspnea 04/06/2016 Gastrointestinal No abdominal pain 2015 Gastrointestinal No constipation 2015 Gastrointestinal diarrhea 04/06/2016 Gastrointestinal No nausea 04/06/2016 Gastrointestinal No vomiting 04/06/2016 Genitourinary/Nephrology No dysuria 04/06 Musculoskeletal No stiffness 04/06/2016 Musculoskeletal No swelling 04/06/2016 Musculoskeletal joint complaint 2015 Musculoskeletal No muscle weakness 2015 Musculoskeletal No myalgias 04/06/2016 Dermatologic No rash 04/06/2016 Dermatologic No scar 04/06/2016 Neurologic No dizziness 04/06/2016 Neurologic No headache 04/06/2016 Neurologic No neck pain 04/06/2016 Neurologic No syncope 04/06/2016 Psychiatric anxiety 04/06/2016 Psychiatric depression 04/06/2016 Constitutional No chills 03/09/2016 Constitutional No diaphoresis 03/09/2016 Constitutional No fatigue 03/09/2016 Constitutional No fever 03/09/2016 Eyes No eye discharge 03/09/2016 Eyes No eye erythema 03/09/2016 Ears/Nose/Throat/Neck No dizziness 2015 Ears/Nose/Throat/Neck No headache 2015 Ears/Nose/Throat/Neck No nasal allergies 03/09/2016 Ears/Nose/Throat/Neck No nasal discharge 03/09/2016 Ears/Nose/Throat/Neck No sore throat Ears/Nose/Throat/Neck No sinus congestion 03/09/2016 Cardiovascular No chest pain/pressure Cardiovascular No dyspnea 03/09/2016 Cardiovascular edema 03/09/2016 Cardiovascular No exercise intolerance Cardiovascular No fatigue 03/09/2016 Cardiovascular hypertension 03/09/2016 Respiratory No productive sputum 2015 Respiratory No chest congestion 2015 Respiratory No cough 03/09/2016 Respiratory No dyspnea 03/09/2016 Gastrointestinal No abdominal pain 2015 Gastrointestinal No constipation 2015 Gastrointestinal diarrhea 03/09/2016 Gastrointestinal No nausea 03/09/2016 Gastrointestinal No vomiting 03/09/2016 Musculoskeletal No stiffness 03/09/2016 Musculoskeletal No swelling 03/09/2016 Musculoskeletal No muscle weakness 2015 Musculoskeletal No myalgias 03/09/2016 Dermatologic No rash 03/09/2016 Dermatologic No scar 03/09/2016 Neurologic No dizziness 03/09/2016 Neurologic No headache 03/09/2016 Neurologic No neck pain 03/09/2016 Neurologic No syncope 03/09/2016 Psychiatric anxiety 03/09/2016 Psychiatric depression 03/09/2016 Constitutional No recent illness 2015 Constitutional No anorexia 03/09/2016 Constitutional No night sweats 2015 Constitutional insomnia 03/09/2016 Constitutional No malaise 03/09/2016 Constitutional No weight loss 03/09/2016 Constitutional No weight gain 03/09/2016 Genitourinary/Nephrology No dysuria 03/09 Respiratory dyspnea on exertion 2015 Musculoskeletal joint complaint 2015 Constitutional No chills 01/18/2016 Constitutional No diaphoresis 01/18/2016 Constitutional No fatigue 01/18/2016 Constitutional No fever 01/18/2016 Eyes No eye discharge 01/18/2016 Eyes No eye erythema 01/18/2016 Ears/Nose/Throat/Neck No dizziness 2015 Ears/Nose/Throat/Neck No headache 2015 Ears/Nose/Throat/Neck No nasal allergies 01/18/2016 Ears/Nose/Throat/Neck No nasal discharge 01/18/2016 Ears/Nose/Throat/Neck No sore throat Ears/Nose/Throat/Neck No sinus congestion 01/18/2016 Cardiovascular No chest pain/pressure Cardiovascular No dyspnea 01/18/2016 Cardiovascular edema 01/18/2016 Cardiovascular No exercise intolerance Cardiovascular No fatigue 01/18/2016 Cardiovascular hypertension 01/18/2016 Respiratory No productive sputum 2015 Respiratory No chest congestion 2015 Respiratory No cough 01/18/2016 Respiratory No dyspnea 01/18/2016 Gastrointestinal No abdominal pain 2015 Gastrointestinal No constipation 2015 Gastrointestinal No diarrhea 01/18/2016 Gastrointestinal No nausea 01/18/2016 Gastrointestinal No vomiting 01/18/2016 Musculoskeletal No stiffness 01/18/2016 Musculoskeletal No swelling 01/18/2016 Musculoskeletal No muscle weakness 2015 Musculoskeletal No myalgias 01/18/2016 Dermatologic No rash 01/18/2016 Dermatologic No scar 01/18/2016 Neurologic No dizziness 01/18/2016 Neurologic No headache 01/18/2016 Neurologic No neck pain 01/18/2016 Neurologic No syncope 01/18/2016 Psychiatric anxiety 01/18/2016 Psychiatric depression 01/18/2016 Constitutional No recent illness 2015 Constitutional No anorexia 09/09/2015 Constitutional No night sweats 2015 Constitutional No chills 09/09/2015 Constitutional No diaphoresis 09/09/2015 Constitutional No fatigue 09/09/2015 Constitutional No fever 09/09/2015 Constitutional No insomnia 09/09/2015 Constitutional No malaise 09/09/2015 Constitutional No weight loss 09/09/2015 Constitutional No weight gain 09/09/2015 Constitutional No obesity 09/09/2015 Respiratory dyspnea 09/09/2015 Respiratory dyspnea on exertion 2015 Respiratory cough 09/09/2015 Respiratory No cigarette smoking 2015 Respiratory No chest tightness 2015 Respiratory No chest congestion 2015 Respiratory No snoring 09/09/2015 Cardiovascular No chest pain/pressure Ears/Nose/Throat/Neck No oral pain 2015 Ears/Nose/Throat/Neck No otitis media Ears/Nose/Throat/Neck No otalgia 2015 Ears/Nose/Throat/Neck nasal allergies Ears/Nose/Throat/Neck nasal discharge Ears/Nose/Throat/Neck No sore throat Ears/Nose/Throat/Neck No postnasal drip 09/09/2015 Gastrointestinal abdominal pain 2015 Gastrointestinal constipation 09/09/2015 Gastrointestinal diarrhea 09/09/2015 Genitourinary/Nephrology No dysuria 09/09 Genitourinary/Nephrology No urinary incontinence 09/09/2015 Genitourinary/Nephrology No urinary frequency 09/09/2015 Genitourinary/Nephrology No urinary urgency 09/09/2015 Musculoskeletal joint complaint 2015 Musculoskeletal back pain 09/09/2015 Musculoskeletal myalgias 09/09/2015 Dermatologic No rash 09/09/2015 Dermatologic No sores 09/09/2015 Psychiatric anxiety 09/09/2015 Psychiatric No depression 09/09/2015 Ears/Nose/Throat/Neck No dizziness 2015 Ears/Nose/Throat/Neck No headache 2015 Constitutional No insomnia 12/25/2014 Cardiovascular No chest pain/pressure 08/2014 Cardiovascular edema 12/25/2014 Respiratory dyspnea on exertion 2014 Respiratory No cough 12/25/2014 Respiratory No chest tightness 2014 Gastrointestinal No diarrhea 12/25/2014 Gastrointestinal No abdominal pain 2014 Genitourinary/Nephrology No dysuria 12/25 Constitutional No recent illness 2014 Constitutional No chills 12/25/2014 Constitutional No diaphoresis 12/25/2014 Constitutional No fatigue 12/25/2014 Constitutional No fever 12/25/2014 Eyes No eye discharge 12/25/2014 Eyes No eye erythema 12/25/2014 Ears/Nose/Throat/Neck No dizziness 2014 Ears/Nose/Throat/Neck No headache 2014 Ears/Nose/Throat/Neck No nasal allergies 12/25/2014 Ears/Nose/Throat/Neck No nasal discharge 12/25/2014 Ears/Nose/Throat/Neck No sore throat 08/2014 Ears/Nose/Throat/Neck No sinus congestion 12/25/2014 Respiratory No productive sputum 2014 Respiratory No chest congestion 2014 Respiratory No dyspnea 12/25/2014 Gastrointestinal No constipation 2014 Gastrointestinal No nausea 12/25/2014 Gastrointestinal No vomiting 12/25/2014 Musculoskeletal No stiffness 12/25/2014 Musculoskeletal No swelling 12/25/2014 Musculoskeletal No muscle weakness 2014 Musculoskeletal No myalgias 12/25/2014 Psychiatric anxiety 12/25/2014 Psychiatric depression 12/25/2014 Constitutional No chills 10/13/2014 Constitutional No diaphoresis 10/13/2014 Constitutional No fatigue 10/13/2014 Constitutional No fever 10/13/2014 Eyes No eye discharge 10/13/2014 Eyes No eye erythema 10/13/2014 Ears/Nose/Throat/Neck No dizziness 2014 Ears/Nose/Throat/Neck No headache 2014 Ears/Nose/Throat/Neck No nasal allergies 10/13/2014 Ears/Nose/Throat/Neck No nasal discharge 10/13/2014 Ears/Nose/Throat/Neck No sore throat Ears/Nose/Throat/Neck No sinus congestion 10/13/2014 Respiratory No productive sputum 2014 Respiratory No chest congestion 2014 Respiratory No cough 10/13/2014 Respiratory No dyspnea 10/13/2014 Gastrointestinal No abdominal pain 2014 Gastrointestinal No constipation 2014 Gastrointestinal No diarrhea 10/13/2014 Gastrointestinal No nausea 10/13/2014 Gastrointestinal No vomiting 10/13/2014 Musculoskeletal No stiffness 10/13/2014 Musculoskeletal No swelling 10/13/2014 Musculoskeletal No muscle weakness 2014 Musculoskeletal No myalgias 10/13/2014 Psychiatric anxiety 10/13/2014 Psychiatric depression 10/13/2014 Dermatologic No rash 10/13/2014 Dermatologic No scar 10/13/2014 Neurologic No dizziness 10/13/2014 Neurologic No headache 10/13/2014 Neurologic No neck pain 10/13/2014 Neurologic No syncope 10/13/2014 Cardiovascular No chest pain/pressure Cardiovascular No dyspnea 10/13/2014 Cardiovascular edema 10/13/2014 Cardiovascular No exercise intolerance Cardiovascular No fatigue 10/13/2014 Cardiovascular hypertension 10/13/2014 Constitutional No chills 08/28/2014 Constitutional No diaphoresis 08/28/2014 Constitutional No fatigue 08/28/2014 Constitutional No fever 08/28/2014 Eyes No eye discharge 08/28/2014 Eyes No eye erythema 08/28/2014 Ears/Nose/Throat/Neck No dizziness 2014 Ears/Nose/Throat/Neck No headache 2014 Ears/Nose/Throat/Neck No nasal allergies 08/28/2014 Ears/Nose/Throat/Neck No nasal discharge 08/28/2014 Ears/Nose/Throat/Neck No sore throat 09/2014 Ears/Nose/Throat/Neck No sinus congestion 08/28/2014 Respiratory No productive sputum 2014 Respiratory No chest congestion 2014 Respiratory No cough 08/28/2014 Respiratory No dyspnea 08/28/2014 Gastrointestinal No abdominal pain 2014 Gastrointestinal No constipation 2014 Gastrointestinal No diarrhea 08/28/2014 Gastrointestinal No nausea 08/28/2014 Gastrointestinal No vomiting 08/28/2014 Musculoskeletal No stiffness 08/28/2014 Musculoskeletal No swelling 08/28/2014 Musculoskeletal No muscle weakness 2014 Musculoskeletal No myalgias 08/28/2014 Psychiatric anxiety 08/28/2014 Psychiatric depression 08/28/2014 Constitutional No recent illness 2014 Constitutional recent illness 05/07/2014 Constitutional No anorexia 05/07/2014 Constitutional fatigue 05/07/2014 Constitutional No fever 05/07/2014 Constitutional No insomnia 05/07/2014 Constitutional chills 05/07/2014 Constitutional No diaphoresis 05/07/2014 Constitutional No night sweats 2013 Eyes No eye discharge 05/07/2014 Eyes No eye erythema 05/07/2014 Ears/Nose/Throat/Neck nasal allergies 06/2014 Ears/Nose/Throat/Neck nasal discharge 06/2014 Ears/Nose/Throat/Neck otalgia 05/07/2014 Ears/Nose/Throat/Neck sore throat 2013 Ears/Nose/Throat/Neck sinus congestion Ears/Nose/Throat/Neck No dizziness 2013 Ears/Nose/Throat/Neck No headache 2013 Cardiovascular No chest pain/pressure 06/2014 Cardiovascular edema 05/07/2014 Cardiovascular fatigue 05/07/2014 Gastrointestinal No abdominal pain 2013 Gastrointestinal No constipation 2013 Gastrointestinal No diarrhea 05/07/2014 Gastrointestinal No vomiting 05/07/2014 Gastrointestinal No nausea 05/07/2014 Genitourinary/Nephrology No dysuria 05/07 Genitourinary/Nephrology urinary urgency 05/07/2014 Genitourinary/Nephrology urinary frequency 05/07/2014 Dermatologic No rash 05/07/2014 Neurologic No alteration of consciousness 05/07/2014 Psychiatric No depression 05/07/2014 Constitutional No chills 04/16/2014 Constitutional No diaphoresis 04/16/2014 Constitutional No fatigue 04/16/2014 Constitutional No fever 04/16/2014 Eyes No eye discharge 04/16/2014 Eyes No eye erythema 04/16/2014 Ears/Nose/Throat/Neck No dizziness 2013 Ears/Nose/Throat/Neck No headache 2013 Ears/Nose/Throat/Neck No nasal allergies 04/16/2014 Ears/Nose/Throat/Neck No nasal discharge 04/16/2014 Ears/Nose/Throat/Neck No sore throat Ears/Nose/Throat/Neck No sinus congestion 04/16/2014 Respiratory No productive sputum 2013 Respiratory No chest congestion 2013 Respiratory No cough 04/16/2014 Respiratory No dyspnea 04/16/2014 Gastrointestinal No abdominal pain 2013 Gastrointestinal No constipation 2013 Gastrointestinal No diarrhea 04/16/2014 Gastrointestinal No nausea 04/16/2014 Gastrointestinal No vomiting 04/16/2014 Musculoskeletal No stiffness 04/16/2014 Musculoskeletal No swelling 04/16/2014 Musculoskeletal No muscle weakness 2013 Musculoskeletal No myalgias 04/16/2014 Psychiatric anxiety 04/16/2014 Psychiatric depression 04/16/2014 Constitutional No recent illness 2013 Constitutional No anorexia 01/27/2014 Constitutional No night sweats 2013 Constitutional No chills 01/27/2014 Constitutional No diaphoresis 01/27/2014 Constitutional fatigue 01/27/2014 Constitutional No fever 01/27/2014 Constitutional No insomnia 01/27/2014 Constitutional No malaise 01/27/2014 Constitutional No weight loss 01/27/2014 Constitutional No weight gain 01/27/2014 Constitutional No chills 01/21/2014 Constitutional No diaphoresis 01/21/2014 Constitutional No fatigue 01/21/2014 Constitutional No fever 01/21/2014 Eyes No eye discharge 01/21/2014 Eyes No eye erythema 01/21/2014 Ears/Nose/Throat/Neck No dizziness 2013 Ears/Nose/Throat/Neck No headache 2013 Ears/Nose/Throat/Neck No nasal allergies 01/21/2014 Ears/Nose/Throat/Neck No nasal discharge 01/21/2014 Ears/Nose/Throat/Neck No sore throat Ears/Nose/Throat/Neck No sinus congestion 01/21/2014 Respiratory No productive sputum 2013 Respiratory No chest congestion 2013 Respiratory No cough 01/21/2014 Respiratory No dyspnea 01/21/2014 Gastrointestinal No abdominal pain 2013 Gastrointestinal No constipation 2013 Gastrointestinal No diarrhea 01/21/2014 Gastrointestinal No nausea 01/21/2014 Gastrointestinal No vomiting 01/21/2014 Musculoskeletal No stiffness 01/21/2014 Musculoskeletal No swelling 01/21/2014 Musculoskeletal No muscle weakness 2013 Musculoskeletal No myalgias 01/21/2014 Psychiatric anxiety 01/21/2014 Psychiatric depression 01/21/2014 Constitutional No recent illness 2013 Constitutional No anorexia 01/07/2014 Constitutional No night sweats 2013 Constitutional No chills 01/07/2014 Constitutional No diaphoresis 01/07/2014 Constitutional No fatigue 01/07/2014 Constitutional No fever 01/07/2014 Constitutional No insomnia 01/07/2014 Constitutional No malaise 01/07/2014 Eyes No eye discharge 01/07/2014 Eyes No eye erythema 01/07/2014 Cardiovascular No chest pain/pressure Respiratory No cough 01/07/2014 Gastrointestinal No abdominal pain 2013 Gastrointestinal No constipation 2013 Gastrointestinal No diarrhea 01/07/2014 Genitourinary/Nephrology No dysuria 01/07 Dermatologic erythema 01/07/2014 Dermatologic No rash 01/07/2014 Constitutional recent illness 12/26/2013 Constitutional No anorexia 12/26/2013 Constitutional No night sweats 2013 Constitutional No chills 12/26/2013 Constitutional No diaphoresis 12/26/2013 Constitutional fatigue 12/26/2013 Constitutional No fever 12/26/2013 Constitutional No insomnia 12/26/2013 Constitutional No malaise 12/26/2013 Eyes No eye discharge 12/26/2013 Eyes No eye erythema 12/26/2013 Cardiovascular No chest pain/pressure 09/2013 Gastrointestinal No abdominal pain 2013 Gastrointestinal No constipation 2013 Gastrointestinal No diarrhea 12/26/2013 Genitourinary/Nephrology No dysuria 12/26 Musculoskeletal No joint complaint 2013 Dermatologic No rash 12/26/2013 Dermatologic No sores 12/26/2013 Constitutional No recent illness 2013 Constitutional No anorexia 11/12/2013 Constitutional No night sweats 2013 Constitutional No chills 11/12/2013 Constitutional No diaphoresis 11/12/2013 Constitutional No fatigue 11/12/2013 Constitutional No fever 11/12/2013 Constitutional No insomnia 11/12/2013 Constitutional No malaise 11/12/2013 Eyes No eye discharge 11/12/2013 Eyes No eye erythema 11/12/2013 Cardiovascular No chest pain/pressure Respiratory No cough 11/12/2013 Gastrointestinal No abdominal pain 2013 Gastrointestinal No constipation 2013 Gastrointestinal No diarrhea 11/12/2013 Genitourinary/Nephrology No dysuria 11/12 Dermatologic No rash 11/12/2013 Dermatologic erythema 11/12/2013 Constitutional recent illness 10/09/2013 Constitutional No anorexia 10/09/2013 Constitutional No night sweats 2013 Constitutional No chills 10/09/2013 Constitutional No fatigue 10/09/2013 Constitutional No diaphoresis 10/09/2013 Constitutional No fever 10/09/2013 Constitutional No insomnia 10/09/2013 Eyes No eye discharge 10/09/2013 Eyes No eye erythema 10/09/2013 Cardiovascular No chest pain/pressure Respiratory No productive sputum 2013 Respiratory No chest congestion 2013 Respiratory No cough 10/09/2013 Gastrointestinal No abdominal pain 2013 Gastrointestinal No constipation 2013 Gastrointestinal No diarrhea 10/09/2013 Gastrointestinal No vomiting 10/09/2013 Gastrointestinal No odynophagia 2013 Genitourinary/Nephrology No dysuria 10/09 Dermatologic No rash 10/09/2013 Dermatologic No sores 10/09/2013 Constitutional No chills 04/03/2013 Constitutional No diaphoresis 04/03/2013 Constitutional No fatigue 04/03/2013 Constitutional No fever 04/03/2013 Eyes No eye discharge 04/03/2013 Eyes No eye erythema 04/03/2013 Ears/Nose/Throat/Neck No dizziness 2012 Ears/Nose/Throat/Neck No headache 2012 Ears/Nose/Throat/Neck No nasal allergies 04/03/2013 Ears/Nose/Throat/Neck No nasal discharge 04/03/2013 Ears/Nose/Throat/Neck No sore throat 03/2013 Ears/Nose/Throat/Neck No sinus congestion 04/03/2013 Respiratory No productive sputum 2012 Respiratory No chest congestion 2012 Respiratory No cough 04/03/2013 Respiratory No dyspnea 04/03/2013 Gastrointestinal No abdominal pain 2012 Gastrointestinal No constipation 2012 Gastrointestinal No diarrhea 04/03/2013 Gastrointestinal No nausea 04/03/2013 Gastrointestinal No vomiting 04/03/2013 Musculoskeletal No stiffness 04/03/2013 Musculoskeletal No swelling 04/03/2013 Musculoskeletal No muscle weakness 2012 Musculoskeletal No myalgias 04/03/2013 Psychiatric anxiety 04/03/2013 Psychiatric depression 04/03/2013 Constitutional No chills 01/06/2013 Constitutional No diaphoresis 01/06/2013 Constitutional No fatigue 01/06/2013 Constitutional No fever 01/06/2013 Eyes No eye discharge 01/06/2013 Eyes No eye erythema 01/06/2013 Ears/Nose/Throat/Neck No dizziness 2012 Ears/Nose/Throat/Neck No headache 2012 Ears/Nose/Throat/Neck No nasal allergies 01/06/2013 Ears/Nose/Throat/Neck No nasal discharge 01/06/2013 Ears/Nose/Throat/Neck No sore throat Ears/Nose/Throat/Neck No sinus congestion 01/06/2013 Respiratory No productive sputum 2012 Respiratory No chest congestion 2012 Respiratory No cough 01/06/2013 Respiratory No dyspnea 01/06/2013 Gastrointestinal No abdominal pain 2012 Gastrointestinal No constipation 2012 Gastrointestinal No diarrhea 01/06/2013 Gastrointestinal No nausea 01/06/2013 Gastrointestinal No vomiting 01/06/2013 Musculoskeletal No stiffness 01/06/2013 Musculoskeletal No swelling 01/06/2013 Musculoskeletal No muscle weakness 2012 Musculoskeletal No myalgias 01/06/2013 Psychiatric anxiety 01/06/2013 Psychiatric depression 01/06/2013 Constitutional No recent illness 2012 Constitutional No anorexia 11/21/2012 Constitutional No night sweats 2012 Constitutional No fatigue 11/21/2012 Constitutional No chills 11/21/2012 Constitutional No diaphoresis 11/21/2012 Constitutional No fever 11/21/2012 Constitutional No insomnia 11/21/2012 Constitutional No malaise 11/21/2012 Eyes No eye discharge 11/21/2012 Eyes No eye erythema 11/21/2012 Ears/Nose/Throat/Neck No dizziness 2012 Ears/Nose/Throat/Neck hoarseness 2012 Ears/Nose/Throat/Neck No nasal discharge 11/21/2012 Ears/Nose/Throat/Neck No sore throat Ears/Nose/Throat/Neck No sinus congestion 11/21/2012 Cardiovascular No chest pain/pressure Gastrointestinal No abdominal pain 2012 Gastrointestinal No constipation 2012 Gastrointestinal No diarrhea 11/21/2012 Gastrointestinal No nausea 11/21/2012 Gastrointestinal No vomiting 11/21/2012 Genitourinary/Nephrology No dysuria 11/21 Dermatologic No rash 11/21/2012 Dermatologic No sores 11/21/2012 Musculoskeletal No myalgias 10/28/2012 Psychiatric anxiety 10/28/2012 Psychiatric depression 10/28/2012 Constitutional No chills 10/28/2012 Constitutional No diaphoresis 10/28/2012 Constitutional No fatigue 10/28/2012 Constitutional No fever 10/28/2012 Eyes No eye discharge 10/28/2012 Eyes No eye erythema 10/28/2012 Ears/Nose/Throat/Neck No dizziness 2012 Ears/Nose/Throat/Neck No headache 2012 Ears/Nose/Throat/Neck No nasal allergies 10/28/2012 Ears/Nose/Throat/Neck No nasal discharge 10/28/2012 Ears/Nose/Throat/Neck No sore throat 11/2012 Ears/Nose/Throat/Neck No sinus congestion 10/28/2012 Respiratory No productive sputum 2012 Respiratory No chest congestion 2012 Respiratory No cough 10/28/2012 Respiratory No dyspnea 10/28/2012 Gastrointestinal No abdominal pain 2012 Gastrointestinal No constipation 2012 Gastrointestinal No diarrhea 10/28/2012 Gastrointestinal No nausea 10/28/2012 Gastrointestinal No vomiting 10/28/2012 Musculoskeletal No stiffness 10/28/2012 Musculoskeletal No swelling 10/28/2012 Musculoskeletal No muscle weakness 2012 Constitutional No chills 09/30/2012 Constitutional No diaphoresis 09/30/2012 Constitutional No fatigue 09/30/2012 Constitutional No fever 09/30/2012 Eyes No eye discharge 09/30/2012 Eyes No eye erythema 09/30/2012 Ears/Nose/Throat/Neck No dizziness 2012 Ears/Nose/Throat/Neck No headache 2012 Ears/Nose/Throat/Neck No nasal allergies 09/30/2012 Ears/Nose/Throat/Neck No nasal discharge 09/30/2012 Ears/Nose/Throat/Neck No sore throat 11/2012 Ears/Nose/Throat/Neck No sinus congestion 09/30/2012 Cardiovascular No chest pain/pressure 11/2012 Respiratory No productive sputum 2012 Respiratory No chest congestion 2012 Respiratory No cough 09/30/2012 Respiratory No dyspnea 09/30/2012 Gastrointestinal No abdominal pain 2012 Gastrointestinal No constipation 2012 Gastrointestinal No diarrhea 09/30/2012 Gastrointestinal No nausea 09/30/2012 Gastrointestinal No vomiting 09/30/2012 Psychiatric anxiety 09/30/2012 Psychiatric depression 09/30/2012 Musculoskeletal No stiffness 09/30/2012 Musculoskeletal No swelling 09/30/2012 Musculoskeletal No muscle weakness 2012 Musculoskeletal No myalgias 09/30/2012 Constitutional No chills 08/14/2012 Constitutional No diaphoresis 08/14/2012 Constitutional No fatigue 08/14/2012 Constitutional No fever 08/14/2012 Eyes No eye discharge 08/14/2012 Eyes No eye erythema 08/14/2012 Ears/Nose/Throat/Neck No dizziness 2011 Ears/Nose/Throat/Neck No headache 2011 Ears/Nose/Throat/Neck No nasal allergies 08/14/2012 Ears/Nose/Throat/Neck No nasal discharge 08/14/2012 Ears/Nose/Throat/Neck No sore throat Ears/Nose/Throat/Neck No sinus congestion 08/14/2012 Cardiovascular No chest pain/pressure Respiratory No productive sputum 2011 Respiratory No chest congestion 2011 Respiratory No cough 08/14/2012 Respiratory No dyspnea 08/14/2012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 cervical chain benign 01/15/2017 None Full Exam - ENT Neurologic orientation Overall: oriented to person, place and time 01/15/2017 None Full Exam - ENT Face and Head palpation Left maxillary sinus: tender 01/15/2017 None Full Exam - General 1994 Constitutional general appearance Development: well developed 01/04/2017 None Full Exam - General 1994 Constitutional general appearance Development: appears stated age 0501/04/2017 None Full Exam - General 1994 Constitutional general appearance Overall: in no acute distress 01/04/2017 None Full Exam - General 1994 Constitutional general appearance Overall: well nourished 01/04/2017 None Full Exam - General 1994 Eyes pupils and irises Overall: pupils equal, round, reactive to light and accomodation 01/04/2017 None Full Exam - General 1994 Ears/Nose/Throat otoscopic exam Overall: external auditory canals clear 01/04/2017 None Full Exam - General 1994 Ears/Nose/Throat otoscopic exam Overall: tympanic membranes clear 01/04/2017 None Full Exam - General 1994 Ears/Nose/Throat oral cavity/pharynx/larynx Overall: oral mucosa clear 01/04/2017 None Full Exam - General 1994 Ears/Nose/Throat oral cavity/pharynx/larynx Overall: oropharyngeal mucosa clear 01/04/2017 None Full Exam - General 1994 Ears/Nose/Throat oral cavity/pharynx/larynx Overall: no masses 01/04/2017 None Full Exam - General 1994 Respiratory auscultation Overall: breath sounds clear bilaterally 01/04/2017 None Full Exam - General 1994 Respiratory respiratory effort/rhythm Overall: no retractions 01/04/2017 None Full Exam - General 1994 Respiratory respiratory effort/rhythm Overall: normal rate 01/04/2017 None Full Exam - General 1994 Cardiovascular extremities Overall: no clubbing 01/04/2017 None Full Exam - General 1994 Cardiovascular extremities Edema present: pitting 01/04/2017 None Full Exam - General 1994 Cardiovascular extremities Edema present: severity 1+ - 4 +: 2+ 01/04/2017 None Full Exam - General 1994 Cardiovascular extremities Edema present: bilateral 01/04/2017 None Full Exam - General 1994 Cardiovascular auscultation of heart Overall: regular rate 01/04/2017 None Full Exam - General 1994 Cardiovascular auscultation of heart Overall: normal heart sounds 01/04/2017 None Full Exam - General 1994 Abdomen abdominal exam Overall: no tenderness 01/04/2017 None Full Exam - General 1994 Abdomen abdominal exam Overall: normal bowel sounds 01/04/2017 None Full Exam - General 1994 Lymphatic neck nodes Overall: anterior cervical chain benign 01/04/2017 None Full Exam - General 1994 Lymphatic neck nodes Overall: posterior cervical chain benign 01/04/2017 None Full Exam - General 1994 Integument inspection of skin Overall: no rash, lesions 01/04/2017 None Full Exam - General 1994 Psychiatric orientation/consciousness Overall: oriented to person, place and time 01/04/2017 None Full Exam - General 1994 Psychiatric mood and affect Overall: normal mood and affect 01/04/2017 None Full Exam - General 1994 Psychiatric mood and affect Mood: happy 01/04/2017 None Full Exam - General 1994 Constitutional general appearance Development: well developed 09/07/2016 None Full Exam - General 1994 Constitutional general appearance Development: appears stated age 0109/07/2016 None Full Exam - General 1994 Constitutional general appearance Overall: in no acute distress 09/07/2016 None Full Exam - General 1994 Constitutional general appearance Overall: well nourished 09/07/2016 None Full Exam - General 1994 Eyes pupils and irises Overall: pupils equal, round, reactive to light and accomodation 09/07/2016 None Full Exam - General 1994 Ears/Nose/Throat otoscopic exam Overall: external auditory canals clear 09/07/2016 None Full Exam - General 1994 Ears/Nose/Throat otoscopic exam Overall: tympanic membranes clear 09/07/2016 None Full Exam - General 1994 Ears/Nose/Throat oral cavity/pharynx/larynx Overall: oral mucosa clear 09/07/2016 None Full Exam - General 1994 Ears/Nose/Throat oral cavity/pharynx/larynx Overall: oropharyngeal mucosa clear 09/07/2016 None Full Exam - General 1994 Ears/Nose/Throat oral cavity/pharynx/larynx Overall: no masses 09/07/2016 None Full Exam - General 1994 Respiratory auscultation Overall: breath sounds clear bilaterally 09/07/2016 None Full Exam - General 1994 Respiratory respiratory effort/rhythm Overall: no retractions 09/07/2016 None Full Exam - General 1994 Respiratory respiratory effort/rhythm Overall: normal rate 09/07/2016 None Full Exam - General 1994 Cardiovascular extremities Overall: no clubbing 09/07/2016 None Full Exam - General 1994 Cardiovascular extremities Edema present: pitting 09/07/2016 None Full Exam - General 1994 Cardiovascular extremities Edema present: severity 1+ - 4 +: 2+ 09/07/2016 None Full Exam - General 1994 Cardiovascular extremities Edema present: bilateral 09/07/2016 None Full Exam - General 1994 Cardiovascular auscultation of heart Overall: regular rate 09/07/2016 None Full Exam - General 1994 Cardiovascular auscultation of heart Overall: normal heart sounds 09/07/2016 None Full Exam - General 1994 Abdomen abdominal exam Overall: no tenderness 09/07/2016 None Full Exam - General 1994 Abdomen abdominal exam Overall: normal bowel sounds 09/07/2016 None Full Exam - General 1994 Lymphatic neck nodes Overall: anterior cervical chain benign 09/07/2016 None Full Exam - General 1994 Lymphatic neck nodes Overall: posterior cervical chain benign 09/07/2016 None Full Exam - General 1994 Integument inspection of skin Overall: no rash, lesions 09/07/2016 None Full Exam - General 1994 Psychiatric orientation/consciousness Overall: oriented to person, place and time 09/07/2016 None Full Exam - General 1994 Psychiatric mood and affect Overall: normal mood and affect 09/07/2016 None Full Exam - General 1994 Psychiatric mood and affect Mood: happy 09/07/2016 None Full Exam - General 1994 Constitutional general appearance Development: well developed 07/06/2016 None Full Exam - General 1994 Constitutional general appearance Development: appears stated age 1107/06/2016 None Full Exam - General 1994 Constitutional general appearance Overall: in no acute distress 07/06/2016 None Full Exam - General 1994 Constitutional general appearance Overall: well nourished 07/06/2016 None Full Exam - General 1994 Eyes pupils and irises Overall: pupils equal, round, reactive to light and accomodation 07/06/2016 None Full Exam - General 1994 Ears/Nose/Throat otoscopic exam Overall: external auditory canals clear 07/06/2016 None Full Exam - General 1994 Ears/Nose/Throat otoscopic exam Overall: tympanic membranes clear 07/06/2016 None Full Exam - General 1994 Ears/Nose/Throat oral cavity/pharynx/larynx Overall: oral mucosa clear 07/06/2016 None Full Exam - General 1994 Ears/Nose/Throat oral cavity/pharynx/larynx Overall: oropharyngeal mucosa clear 07/06/2016 None Full Exam - General 1994 Ears/Nose/Throat oral cavity/pharynx/larynx Overall: no masses 07/06/2016 None Full Exam - General 1994 Respiratory auscultation Overall: breath sounds clear bilaterally 07/06/2016 None Full Exam - General 1994 Respiratory respiratory effort/rhythm Overall: no retractions 07/06/2016 None Full Exam - General 1994 Respiratory respiratory effort/rhythm Overall: normal rate 07/06/2016 None Full Exam - General 1994 Cardiovascular extremities Overall: no clubbing 07/06/2016 None Full Exam - General 1994 Cardiovascular extremities Edema present: pitting 07/06/2016 None Full Exam - General 1994 Cardiovascular extremities Edema present: severity 1+ - 4 +: 2+ 07/06/2016 None Full Exam - General 1994 Cardiovascular extremities Edema present: bilateral 07/06/2016 None Full Exam - General 1994 Cardiovascular auscultation of heart Overall: regular rate 07/06/2016 None Full Exam - General 1994 Cardiovascular auscultation of heart Overall: normal heart sounds 07/06/2016 None Full Exam - General 1994 Abdomen abdominal exam Overall: no tenderness 07/06/2016 None Full Exam - General 1994 Abdomen abdominal exam Overall: normal bowel sounds 07/06/2016 None Full Exam - General 1994 Lymphatic neck nodes Overall: anterior cervical chain benign 07/06/2016 None Full Exam - General 1994 Lymphatic neck nodes Overall: posterior cervical chain benign 07/06/2016 None Full Exam - General 1994 Integument inspection of skin Overall: no rash, lesions 07/06/2016 None Full Exam - General 1994 Psychiatric orientation/consciousness Overall: oriented to person, place and time 07/06/2016 None Full Exam - General 1994 Psychiatric mood and affect Overall: normal mood and affect 07/06/2016 None Full Exam - General 1994 Psychiatric mood and affect Mood: happy 07/06/2016 None Full Exam - General 1994 Constitutional general appearance Development: well developed 06/08/2016 None Full Exam - General 1994 Constitutional general appearance Development: appears stated age 1006/08/2016 None Full Exam - General 1994 Constitutional general appearance Overall: in no acute distress 06/08/2016 None Full Exam - General 1994 Constitutional general appearance Overall: well nourished 06/08/2016 None Full Exam - General 1994 Eyes pupils and irises Overall: pupils equal, round, reactive to light and accomodation 06/08/2016 None Full Exam - General 1994 Ears/Nose/Throat otoscopic exam Overall: external auditory canals clear 06/08/2016 None Full Exam - General 1994 Ears/Nose/Throat otoscopic exam Overall: tympanic membranes clear 06/08/2016 None Full Exam - General 1994 Ears/Nose/Throat oral cavity/pharynx/larynx Overall: oral mucosa clear 06/08/2016 None Full Exam - General 1994 Ears/Nose/Throat oral cavity/pharynx/larynx Overall: oropharyngeal mucosa clear 06/08/2016 None Full Exam - General 1994 Ears/Nose/Throat oral cavity/pharynx/larynx Overall: no masses 06/08/2016 None Full Exam - General 1994 Respiratory auscultation Overall: breath sounds clear bilaterally 06/08/2016 None Full Exam - General 1994 Respiratory respiratory effort/rhythm Overall: no retractions 06/08/2016 None Full Exam - General 1994 Respiratory respiratory effort/rhythm Overall: normal rate 06/08/2016 None Full Exam - General 1994 Cardiovascular extremities Overall: no clubbing 06/08/2016 None Full Exam - General 1994 Cardiovascular extremities Edema present: pitting 06/08/2016 None Full Exam - General 1994 Cardiovascular extremities Edema present: severity 1+ - 4 +: 2+ 06/08/2016 None Full Exam - General 1994 Cardiovascular extremities Edema present: bilateral 06/08/2016 None Full Exam - General 1994 Cardiovascular auscultation of heart Overall: regular rate 06/08/2016 None Full Exam - General 1994 Cardiovascular auscultation of heart Overall: normal heart sounds 06/08/2016 None Full Exam - General 1994 Abdomen abdominal exam Overall: no tenderness 06/08/2016 None Full Exam - General 1994 Abdomen abdominal exam Overall: normal bowel sounds 06/08/2016 None Full Exam - General 1994 Lymphatic neck nodes Overall: anterior cervical chain benign 06/08/2016 None Full Exam - General 1994 Lymphatic neck nodes Overall: posterior cervical chain benign 06/08/2016 None Full Exam - General 1994 Integument inspection of skin Overall: no rash, lesions 06/08/2016 None Full Exam - General 1994 Psychiatric orientation/consciousness Overall: oriented to person, place and time 06/08/2016 None Full Exam - General 1994 Psychiatric mood and affect Overall: normal mood and affect 06/08/2016 None Full Exam - General 1994 Psychiatric mood and affect Mood: happy 06/08/2016 None Full Exam - General 1994 Constitutional general appearance Development: well developed 04/06/2016 None Full Exam - General 1994 Constitutional general appearance Development: appears stated age 0804/06/2016 None Full Exam - General 1994 Constitutional general appearance Overall: in no acute distress 04/06/2016 None Full Exam - General 1994 Constitutional general appearance Overall: well nourished 04/06/2016 None Full Exam - General 1994 Eyes pupils and irises Overall: pupils equal, round, reactive to light and accomodation 04/06/2016 None Full Exam - General 1994 Ears/Nose/Throat otoscopic exam Overall: external auditory canals clear 04/06/2016 None Full Exam - General 1994 Ears/Nose/Throat otoscopic exam Overall: tympanic membranes clear 04/06/2016 None Full Exam - General 1994 Ears/Nose/Throat oral cavity/pharynx/larynx Overall: oral mucosa clear 04/06/2016 None Full Exam - General 1994 Ears/Nose/Throat oral cavity/pharynx/larynx Overall: oropharyngeal mucosa clear 04/06/2016 None Full Exam - General 1994 Ears/Nose/Throat oral cavity/pharynx/larynx Overall: no masses 04/06/2016 None Full Exam - General 1994 Respiratory auscultation Overall: breath sounds clear bilaterally 04/06/2016 None Full Exam - General 1994 Respiratory respiratory effort/rhythm Overall: no retractions 04/06/2016 None Full Exam - General 1994 Respiratory respiratory effort/rhythm Overall: normal rate 04/06/2016 None Full Exam - General 1994 Cardiovascular extremities Overall: no clubbing 04/06/2016 None Full Exam - General 1994 Cardiovascular extremities Edema present: pitting 04/06/2016 None Full Exam - General 1994 Cardiovascular extremities Edema present: severity 1+ - 4 +: 2+ 04/06/2016 None Full Exam - General 1994 Cardiovascular extremities Edema present: bilateral 04/06/2016 None Full Exam - General 1994 Cardiovascular auscultation of heart Overall: regular rate 04/06/2016 None Full Exam - General 1994 Cardiovascular auscultation of heart Overall: normal heart sounds 04/06/2016 None Full Exam - General 1994 Abdomen abdominal exam Overall: no tenderness 04/06/2016 None Full Exam - General 1994 Abdomen abdominal exam Overall: normal bowel sounds 04/06/2016 None Full Exam - General 1994 Lymphatic neck nodes Overall: anterior cervical chain benign 04/06/2016 None Full Exam - General 1994 Lymphatic neck nodes Overall: posterior cervical chain benign 04/06/2016 None Full Exam - General 1994 Integument inspection of skin Overall: no rash, lesions 04/06/2016 None Full Exam - General 1994 Psychiatric orientation/consciousness Overall: oriented to person, place and time 04/06/2016 None Full Exam - General 1994 Psychiatric mood and affect Overall: normal mood and affect 04/06/2016 None Full Exam - General 1994 Psychiatric mood and affect Mood: happy 04/06/2016 None Full Exam - General 1994 Constitutional general appearance Development: well developed 03/09/2016 None Full Exam - General 1994 Constitutional general appearance Development: appears stated age 0703/09/2016 None Full Exam - General 1994 Constitutional general appearance Overall: in no acute distress 03/09/2016 None Full Exam - General 1994 Constitutional general appearance Overall: well nourished 03/09/2016 None Full Exam - General 1994 Eyes pupils and irises Overall: pupils equal, round, reactive to light and accomodation 03/09/2016 None Full Exam - General 1994 Ears/Nose/Throat otoscopic exam Overall: external auditory canals clear 03/09/2016 None Full Exam - General 1994 Ears/Nose/Throat otoscopic exam Overall: tympanic membranes clear 03/09/2016 None Full Exam - General 1994 Ears/Nose/Throat oral cavity/pharynx/larynx Overall: oral mucosa clear 03/09/2016 None Full Exam - General 1994 Ears/Nose/Throat oral cavity/pharynx/larynx Overall: oropharyngeal mucosa clear 03/09/2016 None Full Exam - General 1994 Ears/Nose/Throat oral cavity/pharynx/larynx Overall: no masses 03/09/2016 None Full Exam - General 1994 Respiratory auscultation Overall: breath sounds clear bilaterally 03/09/2016 None Full Exam - General 1994 Respiratory respiratory effort/rhythm Overall: no retractions 03/09/2016 None Full Exam - General 1994 Respiratory respiratory effort/rhythm Overall: normal rate 03/09/2016 None Full Exam - General 1994 Cardiovascular extremities Overall: no clubbing 03/09/2016 None Full Exam - General 1994 Cardiovascular extremities Edema present: pitting 03/09/2016 None Full Exam - General 1994 Cardiovascular extremities Edema present: severity 1+ - 4 +: _ 03/09/2016 None Full Exam - General 1994 Cardiovascular extremities Edema present: bilateral 03/09/2016 None Full Exam - General 1994 Cardiovascular auscultation of heart Overall: regular rate 03/09/2016 None Full Exam - General 1994 Cardiovascular auscultation of heart Overall: normal heart sounds 03/09/2016 None Full Exam - General 1994 Abdomen abdominal exam Overall: no tenderness 03/09/2016 None Full Exam - General 1994 Abdomen abdominal exam Overall: normal bowel sounds 03/09/2016 None Full Exam - General 1994 Lymphatic neck nodes Overall: anterior cervical chain benign 03/09/2016 None Full Exam - General 1994 Lymphatic neck nodes Overall: posterior cervical chain benign 03/09/2016 None Full Exam - General 1994 Integument inspection of skin Overall: no rash, lesions 03/09/2016 None Full Exam - General 1994 Psychiatric orientation/consciousness Overall: oriented to person, place and time 03/09/2016 None Full Exam - General 1994 Psychiatric mood and affect Overall: normal mood and affect 03/09/2016 None Full Exam - General 1994 Psychiatric mood and affect Mood: happy 03/09/2016 None Full Exam - General 1994 Constitutional general appearance Development: well developed 01/18/2016 None Full Exam - General 1994 Constitutional general appearance Development: appears stated age 0501/18/2016 None Full Exam - General 1994 Constitutional general appearance Overall: in no acute distress 01/18/2016 None Full Exam - General 1994 Constitutional general appearance Overall: well nourished 01/18/2016 None Full Exam - General 1994 Eyes pupils and irises Overall: pupils equal, round, reactive to light and accomodation 01/18/2016 None Full Exam - General 1994 Respiratory auscultation Overall: breath sounds clear bilaterally 01/18/2016 None Full Exam - General 1994 Respiratory respiratory effort/rhythm Overall: no retractions 01/18/2016 None Full Exam - General 1994 Respiratory respiratory effort/rhythm Overall: normal rate 01/18/2016 None Full Exam - General 1994 Cardiovascular extremities Overall: no clubbing 01/18/2016 None Full Exam - General 1994 Cardiovascular extremities Edema present: pitting 01/18/2016 None Full Exam - General 1994 Cardiovascular extremities Edema present: severity 1+ - 4 +: _ 01/18/2016 None Full Exam - General 1994 Cardiovascular extremities Edema present: bilateral 01/18/2016 None Full Exam - General 1994 Cardiovascular auscultation of heart Overall: regular rate 01/18/2016 None Full Exam - General 1994 Cardiovascular auscultation of heart Overall: normal heart sounds 01/18/2016 None Full Exam - General 1994 Lymphatic neck nodes Overall: anterior cervical chain benign 01/18/2016 None Full Exam - General 1994 Lymphatic neck nodes Overall: posterior cervical chain benign 01/18/2016 None Full Exam - General 1994 Integument inspection of skin Overall: no rash, lesions 01/18/2016 None Full Exam - General 1994 Psychiatric orientation/consciousness Overall: oriented to person, place and time 01/18/2016 None Full Exam - General 1994 Psychiatric mood and affect Overall: normal mood and affect 01/18/2016 None Full Exam - General 1994 Psychiatric mood and affect Mood: happy 01/18/2016 None Full Exam - General 1994 Ears/Nose/Throat otoscopic exam Overall: tympanic membranes clear 01/18/2016 None Full Exam - General 1994 Ears/Nose/Throat otoscopic exam Overall: external auditory canals clear 01/18/2016 None Full Exam - General 1994 Ears/Nose/Throat oral cavity/pharynx/larynx Overall: oropharyngeal mucosa clear 01/18/2016 None Full Exam - General 1994 Ears/Nose/Throat oral cavity/pharynx/larynx Overall: no masses 01/18/2016 None Full Exam - General 1994 Ears/Nose/Throat oral cavity/pharynx/larynx Overall: oral mucosa clear 01/18/2016 None Full Exam - General 1994 Abdomen abdominal exam Overall: no tenderness 01/18/2016 None Full Exam - General 1994 Abdomen abdominal exam Overall: normal bowel sounds 01/18/2016 None Full Exam - General 1994 Constitutional general appearance Development: well developed 09/09/2015 None Full Exam - General 1994 Constitutional general appearance Development: appears stated age 0109/09/2015 None Full Exam - General 1994 Constitutional general appearance Overall: in no acute distress 09/09/2015 None Full Exam - General 1994 Constitutional general appearance Overall: well nourished 09/09/2015 None Full Exam - General 1994 Eyes pupils and irises Overall: pupils equal, round, reactive to light and accomodation 09/09/2015 None Full Exam - General 1994 Ears/Nose/Throat oral cavity/pharynx/larynx Overall: oral mucosa clear 09/09/2015 None Full Exam - General 1994 Ears/Nose/Throat oral cavity/pharynx/larynx Overall: oropharyngeal mucosa clear 09/09/2015 None Full Exam - General 1994 Ears/Nose/Throat oral cavity/pharynx/larynx Overall: no masses 09/09/2015 None Full Exam - General 1994 Respiratory auscultation Overall: breath sounds clear bilaterally 09/09/2015 None Full Exam - General 1994 Respiratory respiratory effort/rhythm Overall: no retractions 09/09/2015 None Full Exam - General 1994 Respiratory respiratory effort/rhythm Overall: normal rate 09/09/2015 None Full Exam - General 1994 Cardiovascular extremities Overall: no clubbing 09/09/2015 None Full Exam - General 1994 Cardiovascular extremities Edema present: pitting 09/09/2015 None Full Exam - General 1994 Cardiovascular extremities Edema present: bilateral 09/09/2015 None Full Exam - General 1994 Cardiovascular auscultation of heart Overall: regular rate 09/09/2015 None Full Exam - General 1994 Cardiovascular auscultation of heart Overall: normal heart sounds 09/09/2015 None Full Exam - General 1994 Abdomen abdominal exam Overall: no tenderness 09/09/2015 None Full Exam - General 1994 Abdomen abdominal exam Overall: normal bowel sounds 09/09/2015 None Full Exam - General 1994 Abdomen abdominal exam Contour: rounded 09/09/2015 None Full Exam - General 1994 Lymphatic neck nodes Overall: anterior cervical chain benign 09/09/2015 None Full Exam - General 1994 Lymphatic neck nodes Overall: posterior cervical chain benign 09/09/2015 None Full Exam - General 1994 Integument inspection of skin Overall: no rash, lesions 09/09/2015 None Full Exam - General 1994 Psychiatric orientation/consciousness Overall: oriented to person, place and time 09/09/2015 None Full Exam - General 1994 Psychiatric mood and affect Overall: normal mood and affect 09/09/2015 None Full Exam - General 1994 Psychiatric mood and affect Mood: happy 09/09/2015 None Full Exam - General 1994 Abdomen abdominal exam Lower quadrant: tender to palpation 09/09/2015 None Full Exam - General 1994 Abdomen abdominal exam Lower quadrant: no rebound tenderness 09/09/2015 None Full Exam - General 1994 Abdomen abdominal exam Lower quadrant: soft 09/09/2015 None Full Exam - General 1994 Abdomen abdominal exam Lower quadrant: no mass lesions 09/09/2015 None Full Exam - General 1994 Musculoskeletal gait and station Gait: unable to turn quickly 09/09/2015 None Full Exam - General 1994 Musculoskeletal digits and nails Overall: digits benign 09/09/2015 None Full Exam - General 1994 Musculoskeletal digits and nails Overall: no clubbing 09/09/2015 None Full Exam - General 1994 Integument inspection of skin Consistency: edema 09/09/2015 None Full Exam - General 1994 Integument inspection of skin Location: left leg 09/09/2015 None Full Exam - General 1994 Integument inspection of skin Location: right leg 09/09/2015 None Full Exam - General 1994 Neurologic motor Overall: normal bulk, tone 09/09/2015 None Full Exam - General 1994 Neurologic mental status Overall: alert 09/09/2015 None Full Exam - General 1994 Neurologic mental status Overall: oriented 09/09/2015 None Full Exam - General 1994 Cardiovascular extremities Edema present: severity 1+ - 4 +: 3 09/09/2015 None Full Exam - General 1994 Constitutional general appearance Development: well developed 12/25/2014 None Full Exam - General 1994 Constitutional general appearance Development: appears stated age 0512/25/2014 None Full Exam - General 1994 Constitutional general appearance Overall: in no acute distress 12/25/2014 None Full Exam - General 1994 Constitutional general appearance Overall: well nourished 12/25/2014 None Full Exam - General 1994 Eyes pupils and irises Overall: pupils equal, round, reactive to light and accomodation 12/25/2014 None Full Exam - General 1994 Ears/Nose/Throat oral cavity/pharynx/larynx Overall: oral mucosa clear 12/25/2014 None Full Exam - General 1994 Ears/Nose/Throat oral cavity/pharynx/larynx Overall: oropharyngeal mucosa clear 12/25/2014 None Full Exam - General 1994 Ears/Nose/Throat oral cavity/pharynx/larynx Overall: no masses 12/25/2014 None Full Exam - General 1994 Respiratory auscultation Overall: breath sounds clear bilaterally 12/25/2014 None Full Exam - General 1994 Respiratory respiratory effort/rhythm Overall: no retractions 12/25/2014 None Full Exam - General 1994 Respiratory respiratory effort/rhythm Overall: normal rate 12/25/2014 None Full Exam - General 1994 Cardiovascular extremities Overall: no clubbing 12/25/2014 None Full Exam - General 1994 Cardiovascular extremities Edema present: pitting 12/25/2014 None Full Exam - General 1994 Cardiovascular extremities Edema present: severity 1+ - 4 +: _ 12/25/2014 None Full Exam - General 1994 Cardiovascular extremities Edema present: bilateral 12/25/2014 None Full Exam - General 1994 Cardiovascular auscultation of heart Overall: regular rate 12/25/2014 None Full Exam - General 1994 Cardiovascular auscultation of heart Overall: normal heart sounds 12/25/2014 None Full Exam - General 1994 Abdomen abdominal exam Overall: no tenderness 12/25/2014 None Full Exam - General 1994 Abdomen abdominal exam Overall: normal bowel sounds 12/25/2014 None Full Exam - General 1994 Abdomen abdominal exam Contour: rounded 12/25/2014 None Full Exam - General 1994 Lymphatic neck nodes Overall: anterior cervical chain benign 12/25/2014 None Full Exam - General 1994 Lymphatic neck nodes Overall: posterior cervical chain benign 12/25/2014 None Full Exam - General 1994 Integument inspection of skin Overall: no rash, lesions 12/25/2014 None Full Exam - General 1994 Psychiatric orientation/consciousness Overall: oriented to person, place and time 12/25/2014 None Full Exam - General 1994 Psychiatric mood and affect Overall: normal mood and affect 12/25/2014 None Full Exam - General 1994 Psychiatric mood and affect Mood: happy 12/25/2014 None Full Exam - General 1994 Constitutional general appearance Development: well developed 10/13/2014 None Full Exam - General 1994 Constitutional general appearance Development: appears stated age 0210/13/2014 None Full Exam - General 1994 Constitutional general appearance Overall: in no acute distress 10/13/2014 None Full Exam - General 1994 Constitutional general appearance Overall: well nourished 10/13/2014 None Full Exam - General 1994 Eyes pupils and irises Overall: pupils equal, round, reactive to light and accomodation 10/13/2014 None Full Exam - General 1994 Respiratory auscultation Overall: breath sounds clear bilaterally 10/13/2014 None Full Exam - General 1994 Respiratory respiratory effort/rhythm Overall: no retractions 10/13/2014 None Full Exam - General 1994 Respiratory respiratory effort/rhythm Overall: normal rate 10/13/2014 None Full Exam - General 1994 Cardiovascular extremities Overall: no clubbing 10/13/2014 None Full Exam - General 1994 Cardiovascular extremities Edema present: pitting 10/13/2014 None Full Exam - General 1994 Cardiovascular extremities Edema present: severity 1+ - 4 +: _ 10/13/2014 None Full Exam - General 1994 Cardiovascular extremities Edema present: bilateral 10/13/2014 None Full Exam - General 1994 Cardiovascular auscultation of heart Overall: regular rate 10/13/2014 None Full Exam - General 1994 Cardiovascular auscultation of heart Overall: normal heart sounds 10/13/2014 None Full Exam - General 1994 Lymphatic neck nodes Overall: anterior cervical chain benign 10/13/2014 None Full Exam - General 1994 Lymphatic neck nodes Overall: posterior cervical chain benign 10/13/2014 None Full Exam - General 1994 Psychiatric orientation/consciousness Overall: oriented to person, place and time 10/13/2014 None Full Exam - General 1994 Psychiatric mood and affect Overall: normal mood and affect 10/13/2014 None Full Exam - General 1994 Psychiatric mood and affect Mood: happy 10/13/2014 None Full Exam - General 1994 Integument inspection of skin Overall: no rash, lesions 10/13/2014 None Full Exam - General 1994 Constitutional general appearance Development: well developed 08/28/2014 None Full Exam - General 1994 Constitutional general appearance Development: appears stated age 0108/28/2014 None Full Exam - General 1994 Constitutional general appearance Overall: in no acute distress 08/28/2014 None Full Exam - General 1994 Constitutional general appearance Overall: well nourished 08/28/2014 None Full Exam - General 1994 Eyes pupils and irises Overall: pupils equal, round, reactive to light and accomodation 08/28/2014 None Full Exam - General 1994 Respiratory auscultation Overall: breath sounds clear bilaterally 08/28/2014 None Full Exam - General 1994 Respiratory respiratory effort/rhythm Overall: no retractions 08/28/2014 None Full Exam - General 1994 Respiratory respiratory effort/rhythm Overall: normal rate 08/28/2014 None Full Exam - General 1994 Cardiovascular extremities Overall: no clubbing 08/28/2014 None Full Exam - General 1994 Cardiovascular extremities Edema present: pitting 08/28/2014 None Full Exam - General 1994 Cardiovascular extremities Edema present: severity 1+ - 4 +: _ 08/28/2014 None Full Exam - General 1994 Cardiovascular extremities Edema present: bilateral 08/28/2014 None Full Exam - General 1994 Cardiovascular auscultation of heart Overall: regular rate 08/28/2014 None Full Exam - General 1994 Cardiovascular auscultation of heart Overall: normal heart sounds 08/28/2014 None Full Exam - General 1994 Lymphatic neck nodes Overall: anterior cervical chain benign 08/28/2014 None Full Exam - General 1994 Lymphatic neck nodes Overall: posterior cervical chain benign 08/28/2014 None Full Exam - General 1994 Psychiatric orientation/consciousness Overall: oriented to person, place and time 08/28/2014 None Full Exam - General 1994 Psychiatric mood and affect Overall: normal mood and affect 08/28/2014 None Full Exam - General 1994 Psychiatric mood and affect Mood: happy 08/28/2014 None Full Exam - General 1994 Abdomen abdominal exam Overall: no tenderness 08/28/2014 None Full Exam - General 1994 Abdomen abdominal exam Overall: normal bowel sounds 08/28/2014 None Full Exam - General 1994 Abdomen abdominal exam Contour: rounded 08/28/2014 None Full Exam - General 1994 Integument inspection of skin Overall: no rash, lesions 08/28/2014 None Full Exam - General 1994 Ears/Nose/Throat oral cavity/pharynx/larynx Overall: oropharyngeal mucosa clear 08/28/2014 None Full Exam - General 1994 Ears/Nose/Throat oral cavity/pharynx/larynx Overall: no masses 08/28/2014 None Full Exam - General 1994 Ears/Nose/Throat oral cavity/pharynx/larynx Overall: oral mucosa clear 08/28/2014 None Full Exam - General 1994 Constitutional general appearance Development: well developed 04/16/2014 None Full Exam - General 1994 Constitutional general appearance Development: appears stated age 0804/16/2014 None Full Exam - General 1994 Constitutional general appearance Overall: in no acute distress 04/16/2014 None Full Exam - General 1994 Constitutional general appearance Overall: well nourished 04/16/2014 None Full Exam - General 1994 Eyes pupils and irises Overall: pupils equal, round, reactive to light and accomodation 04/16/2014 None Full Exam - General 1994 Respiratory auscultation Overall: breath sounds clear bilaterally 04/16/2014 None Full Exam - General 1994 Respiratory respiratory effort/rhythm Overall: no retractions 04/16/2014 None Full Exam - General 1994 Respiratory respiratory effort/rhythm Overall: normal rate 04/16/2014 None Full Exam - General 1994 Cardiovascular extremities Overall: no clubbing 04/16/2014 None Full Exam - General 1994 Cardiovascular extremities Edema present: pitting 04/16/2014 None Full Exam - General 1994 Cardiovascular extremities Edema present: severity 1+ - 4 +: _ 04/16/2014 None Full Exam - General 1994 Cardiovascular extremities Edema present: bilateral 04/16/2014 None Full Exam - General 1994 Cardiovascular auscultation of heart Overall: regular rate 04/16/2014 None Full Exam - General 1994 Cardiovascular auscultation of heart Overall: normal heart sounds 04/16/2014 None Full Exam - General 1994 Lymphatic neck nodes Overall: anterior cervical chain benign 04/16/2014 None Full Exam - General 1994 Lymphatic neck nodes Overall: posterior cervical chain benign 04/16/2014 None Full Exam - General 1994 Psychiatric orientation/consciousness Overall: oriented to person, place and time 04/16/2014 None Full Exam - General 1994 Psychiatric mood and affect Overall: normal mood and affect 04/16/2014 None Full Exam - General 1994 Psychiatric mood and affect Mood: happy 04/16/2014 None Full Exam - Dermatology Constitutional general appearance Overall: well nourished 01/27/2014 None Full Exam - Dermatology Constitutional general appearance Overall: well developed 01/27/2014 None Full Exam - Dermatology Constitutional general appearance Overall: in no acute distress 01/27/2014 None Full Exam - Dermatology Constitutional general appearance Overall: of normal body habitus 01/27/2014 None Full Exam - Dermatology Constitutional general appearance Overall: well groomed 01/27/2014 None Full Exam - Dermatology Psychiatric orientation Overall: oriented to person, place and time 01/27/2014 None Full Exam - Dermatology Integument insp & palp - back Location: on the right upper back 01/27/2014 raised rough lesion with "stuck on" appearance right scapula Full Exam - Dermatology Integument insp & palp - left upper extremity Location: on the forearm 01/27/2014 raised rough lesion with "stuck on "appearance right forearm-slightly irritated Full Exam - General Constitutional general appearance Overall: well nourished 01/21/2014 None Full Exam - General Constitutional general appearance Overall: well developed 01/21/2014 None Full Exam - General Constitutional general appearance Overall: in no acute distress 01/21/2014 None Full Exam - General Ears/Nose/Throat oral cavity/pharynx/larynx Overall: oral mucosa clear 01/21/2014 None Full Exam - General Ears/Nose/Throat oral cavity/pharynx/larynx Overall: oropharyngeal mucosa clear 01/21/2014 None Full Exam - General Respiratory auscultation Overall: breath sounds clear bilaterally 01/21/2014 None Full Exam - General Respiratory respiratory effort/rhythm Overall: no retractions 01/21/2014 None Full Exam - General Respiratory respiratory effort/rhythm Overall: normal rate 01/21/2014 None Full Exam - General Cardiovascular auscultation of heart Overall: regular rate 01/21/2014 None Full Exam - General Cardiovascular auscultation of heart Overall: normal heart sounds 01/21/2014 None Full Exam - General Cardiovascular auscultation of heart Overall: no murmurs 01/21/2014 None Full Exam - General Cardiovascular inspection of carotid pulses Overall: strong, bilaterally equal, no bruits 01/21/2014 None Full Exam - General Cardiovascular extremities Overall: no clubbing 01/21/2014 None Full Exam - General Cardiovascular extremities Edema present: pitting 01/21/2014 None Full Exam - General Cardiovascular extremities Edema present: severity 1+ - 4 +: 2 01/21/2014 None Full Exam - General Abdomen abdominal exam Contour: protuberant 01/21/2014 None Full Exam - General Lymphatic neck nodes Overall: anterior cervical chain benign 01/21/2014 None Full Exam - General Lymphatic neck nodes Overall: posterior cervical chain benign 01/21/2014 None Full Exam - General Musculoskeletal head and neck Overall: head atraumatic 01/21/2014 None Full Exam - General Musculoskeletal head and neck Overall: cervical spine benign 01/21/2014 None Full Exam - General Neurologic gait Overall: no ataxia, no unsteadiness 01/21/2014 None Full Exam - General Psychiatric orientation/consciousness Overall: oriented to person, place and time 01/21/2014 None Full Exam - General Psychiatric mood and affect Mood: anxious None Full Exam - General Psychiatric mood and affect Affect: mood congruent 01/21/2014 None Full Exam - ENT Constitutional general appearance Overall: well nourished 01/07/2014 None Full Exam - ENT Constitutional general appearance Overall: well developed 01/07/2014 None Full Exam - ENT Constitutional general appearance Overall: in no acute distress 01/07/2014 None Full Exam - ENT Ears/Nose/Throat otoscopic exam Overall: external auditory canals normal 01/07/2014 None Full Exam - ENT Ears/Nose/Throat otoscopic exam Overall: tympanic membranes normal 01/07/2014 None Full Exam - ENT Ears/Nose/Throat oropharynx Overall: oral mucosa clear 01/07/2014 None Full Exam - ENT Face and Head inspection of face/head Overall: no scars, lesions, masses 01/07/2014 None Full Exam - ENT Face and Head palpation Overall: no sinus tenderness 01/07/2014 None Full Exam - ENT Face and Head palpation Overall: no induration, no tenderness 01/07/2014 None Full Exam - ENT Respiratory inspection Overall: no retractions 01/07/2014 None Full Exam - ENT Respiratory inspection Overall: normal rate None Full Exam - ENT Respiratory auscultation Overall: breath sounds clear bilaterally 01/07/2014 None Full Exam - ENT Cardiovascular auscultation of heart Overall: regular rate 01/07/2014 None Full Exam - ENT Cardiovascular auscultation of heart Overall: normal heart sounds 01/07/2014 None Full Exam - ENT Lymphatic palpation of lymph nodes Overall: shotty lymphadenopathy 01/07/2014 None Full Exam - ENT Neurologic orientation Overall: oriented to person, place and time 01/07/2014 None Full Exam - ENT Constitutional general appearance Overall: well nourished 12/26/2013 None Full Exam - ENT Constitutional general appearance Overall: well developed 12/26/2013 None Full Exam - ENT Constitutional general appearance Overall: in no acute distress 12/26/2013 None Full Exam - ENT Ears/Nose/Throat otoscopic exam Overall: tympanic membranes normal 12/26/2013 None Full Exam - ENT Ears/Nose/Throat otoscopic exam Left external auditory canal: partial cerumen occlusion 12/26/2013 None Full Exam - ENT Ears/Nose/Throat otoscopic exam Right external auditory canal: partial cerumen occlusion 12/26/2013 None Full Exam - ENT Face and Head inspection of face/head Overall: no scars, lesions, masses 12/26/2013 None Full Exam - ENT Respiratory inspection Overall: no retractions 12/26/2013 None Full Exam - ENT Respiratory inspection Overall: normal rate 09/2013 None Full Exam - ENT Respiratory auscultation Overall: breath sounds clear bilaterally 12/26/2013 None Full Exam - ENT Cardiovascular auscultation of heart Overall: regular rate 12/26/2013 None Full Exam - ENT Cardiovascular auscultation of heart Overall: normal heart sounds 12/26/2013 None Full Exam - ENT Lymphatic palpation of lymph nodes Overall: anterior cervical chain benign 12/26/2013 None Full Exam - ENT Lymphatic palpation of lymph nodes Overall: posterior cervical chain benign 12/26/2013 None Full Exam - ENT Neurologic orientation Overall: oriented to person, place and time 12/26/2013 None Full Exam - ENT Face and Head palpation Overall: no sinus tenderness 12/26/2013 None Full Exam - ENT Constitutional general appearance Overall: well nourished 11/12/2013 None Full Exam - ENT Constitutional general appearance Overall: well developed 11/12/2013 None Full Exam - ENT Constitutional general appearance Overall: in no acute distress 11/12/2013 None Full Exam - ENT Neurologic orientation Overall: oriented to person, place and time 11/12/2013 None Full Exam - ENT Lymphatic palpation of lymph nodes Overall: shotty lymphadenopathy 11/12/2013 None Full Exam - ENT Cardiovascular auscultation of heart Overall: regular rate 11/12/2013 None Full Exam - ENT Cardiovascular auscultation of heart Overall: normal heart sounds 11/12/2013 None Full Exam - ENT Respiratory auscultation Overall: breath sounds clear bilaterally 11/12/2013 None Full Exam - ENT Respiratory inspection Overall: no retractions 11/12/2013 None Full Exam - ENT Respiratory inspection Overall: normal rate None Full Exam - ENT Face and Head inspection of face/head Overall: no scars, lesions, masses 11/12/2013 None Full Exam - ENT Face and Head palpation Overall: no sinus tenderness 11/12/2013 None Full Exam - ENT Face and Head palpation Overall: no induration, no tenderness 11/12/2013 None Full Exam - ENT Ears/Nose/Throat otoscopic exam Overall: external auditory canals normal 11/12/2013 None Full Exam - ENT Ears/Nose/Throat otoscopic exam Overall: tympanic membranes normal 11/12/2013 None Full Exam - ENT Ears/Nose/Throat oropharynx Overall: oral mucosa clear 11/12/2013 None Full Exam - ENT Neurologic orientation Overall: oriented to person, place and time 10/09/2013 None Full Exam - ENT Lymphatic palpation of lymph nodes Overall: anterior cervical chain benign 10/09/2013 None Full Exam - ENT Lymphatic palpation of lymph nodes Overall: posterior cervical chain benign 10/09/2013 None Full Exam - ENT Cardiovascular auscultation of heart Overall: regular rate 10/09/2013 None Full Exam - ENT Cardiovascular auscultation of heart Overall: normal heart sounds 10/09/2013 None Full Exam - ENT Respiratory auscultation Overall: breath sounds clear bilaterally 10/09/2013 None Full Exam - ENT Respiratory inspection Overall: no retractions 10/09/2013 None Full Exam - ENT Respiratory inspection Overall: normal rate None Full Exam - ENT Face and Head inspection of face/head Overall: no scars, lesions, masses 10/09/2013 None Full Exam - ENT Face and Head palpation Left maxillary sinus: tender 10/09/2013 None Full Exam - ENT Face and Head palpation Right maxillary sinus: tender 10/09/2013 None Full Exam - ENT Face and Head palpation Left frontal sinus: tender 10/09/2013 None Full Exam - ENT Face and Head palpation Right frontal sinus: tender 10/09/2013 None Full Exam - ENT Ears/Nose/Throat otoscopic exam Left external auditory canal: partial cerumen occlusion 10/09/2013 None Full Exam - ENT Ears/Nose/Throat otoscopic exam Right external auditory canal: partial cerumen occlusion 10/09/2013 None Full Exam - ENT Ears/Nose/Throat otoscopic exam Overall: tympanic membranes normal 10/09/2013 None Full Exam - ENT Constitutional general appearance Overall: in no acute distress 10/09/2013 None Full Exam - ENT Constitutional general appearance Overall: well developed 10/09/2013 None Full Exam - ENT Constitutional general appearance Overall: well nourished 10/09/2013 None Full Exam - General Constitutional general appearance Overall: well nourished 04/03/2013 None Full Exam - General Constitutional general appearance Overall: well developed 04/03/2013 None Full Exam - General Constitutional general appearance Overall: in no acute distress 04/03/2013 None Full Exam - General Ears/Nose/Throat oral cavity/pharynx/larynx Overall: oral mucosa clear 04/03/2013 None Full Exam - General Ears/Nose/Throat oral cavity/pharynx/larynx Overall: oropharyngeal mucosa clear 04/03/2013 None Full Exam - General Respiratory auscultation Overall: breath sounds clear bilaterally 04/03/2013 None Full Exam - General Respiratory respiratory effort/rhythm Overall: no retractions 04/03/2013 None Full Exam - General Respiratory respiratory effort/rhythm Overall: normal rate 04/03/2013 None Full Exam - General Cardiovascular auscultation of heart Overall: regular rate 04/03/2013 None Full Exam - General Cardiovascular auscultation of heart Overall: normal heart sounds 04/03/2013 None Full Exam - General Cardiovascular auscultation of heart Overall: no murmurs 04/03/2013 None Full Exam - General Cardiovascular inspection of carotid pulses Overall: strong, bilaterally equal, no bruits 04/03/2013 None Full Exam - General Cardiovascular extremities Overall: no clubbing 04/03/2013 None Full Exam - General Cardiovascular extremities Edema present: pitting 04/03/2013 None Full Exam - General Cardiovascular extremities Edema present: severity 1+ - 4 +: 2 04/03/2013 None Full Exam - General Abdomen abdominal exam Contour: protuberant 04/03/2013 None Full Exam - General Lymphatic neck nodes Overall: anterior cervical chain benign 04/03/2013 None Full Exam - General Lymphatic neck nodes Overall: posterior cervical chain benign 04/03/2013 None Full Exam - General Musculoskeletal head and neck Overall: head atraumatic 04/03/2013 None Full Exam - General Musculoskeletal head and neck Overall: cervical spine benign 04/03/2013 None Full Exam - General Neurologic gait Overall: no ataxia, no unsteadiness 04/03/2013 None Full Exam - General Psychiatric orientation/consciousness Overall: oriented to person, place and time 04/03/2013 None Full Exam - General Psychiatric mood and affect Mood: anxious None Full Exam - General Psychiatric mood and affect Affect: mood congruent 04/03/2013 None Full Exam - General Constitutional general appearance Overall: well nourished 01/06/2013 None Full Exam - General Constitutional general appearance Overall: well developed 01/06/2013 None Full Exam - General Constitutional general appearance Overall: in no acute distress 01/06/2013 None Full Exam - General Ears/Nose/Throat oral cavity/pharynx/larynx Overall: oral mucosa clear 01/06/2013 None Full Exam - General Ears/Nose/Throat oral cavity/pharynx/larynx Overall: oropharyngeal mucosa clear 01/06/2013 None Full Exam - General Respiratory auscultation Overall: breath sounds clear bilaterally 01/06/2013 None Full Exam - General Respiratory respiratory effort/rhythm Overall: no retractions 01/06/2013 None Full Exam - General Respiratory respiratory effort/rhythm Overall: normal rate 01/06/2013 None Full Exam - General Cardiovascular auscultation of heart Overall: regular rate 01/06/2013 None Full Exam - General Cardiovascular auscultation of heart Overall: normal heart sounds 01/06/2013 None Full Exam - General Cardiovascular auscultation of heart Overall: no murmurs 01/06/2013 None Full Exam - General Cardiovascular inspection of carotid pulses Overall: strong, bilaterally equal, no bruits 01/06/2013 None Full Exam - General Cardiovascular extremities Overall: no clubbing 01/06/2013 None Full Exam - General Cardiovascular extremities Edema present: pitting 01/06/2013 None Full Exam - General Cardiovascular extremities Edema present: severity 1+ - 4 +: 2 01/06/2013 None Full Exam - General Abdomen abdominal exam Contour: protuberant 01/06/2013 None Full Exam - General Lymphatic neck nodes Overall: anterior cervical chain benign 01/06/2013 None Full Exam - General Lymphatic neck nodes Overall: posterior cervical chain benign 01/06/2013 None Full Exam - General Musculoskeletal head and neck Overall: head atraumatic 01/06/2013 None Full Exam - General Musculoskeletal head and neck Overall: cervical spine benign 01/06/2013 None Full Exam - General Neurologic gait Overall: no ataxia, no unsteadiness 01/06/2013 None Full Exam - General Psychiatric orientation/consciousness Overall: oriented to person, place and time 01/06/2013 None Full Exam - General Psychiatric mood and affect Mood: anxious None Full Exam - General Psychiatric mood and affect Affect: mood congruent 01/06/2013 None Full Exam - ENT Neurologic orientation Overall: oriented to person, place and time 11/21/2012 None Full Exam - ENT Lymphatic palpation of lymph nodes Overall: anterior cervical chain benign 11/21/2012 None Full Exam - ENT Lymphatic palpation of lymph nodes Overall: posterior cervical chain benign 11/21/2012 None Full Exam - ENT Cardiovascular auscultation of heart Overall: regular rate 11/21/2012 None Full Exam - ENT Cardiovascular auscultation of heart Overall: normal heart sounds 11/21/2012 None Full Exam - ENT Respiratory auscultation Overall: breath sounds clear bilaterally 11/21/2012 None Full Exam - ENT Respiratory inspection Overall: no retractions 11/21/2012 None Full Exam - ENT Respiratory inspection Overall: normal rate None Full Exam - ENT Ears/Nose/Throat otoscopic exam Overall: external auditory canals normal 11/21/2012 None Full Exam - ENT Ears/Nose/Throat otoscopic exam Overall: tympanic membranes normal 11/21/2012 None Full Exam - ENT Ears/Nose/Throat oropharynx Overall: oral mucosa clear 11/21/2012 None Full Exam - ENT Constitutional general appearance Overall: well nourished 11/21/2012 None Full Exam - ENT Constitutional general appearance Overall: well developed 11/21/2012 None Full Exam - ENT Constitutional general appearance Overall: in no acute distress 11/21/2012 None Full Exam - General Constitutional general appearance Overall: well nourished 10/28/2012 None Full Exam - General Constitutional general appearance Overall: well developed 10/28/2012 None Full Exam - General Constitutional general appearance Overall: in no acute distress 10/28/2012 None Full Exam - General Ears/Nose/Throat oral cavity/pharynx/larynx Overall: oral mucosa clear 10/28/2012 None Full Exam - General Ears/Nose/Throat oral cavity/pharynx/larynx Overall: oropharyngeal mucosa clear 10/28/2012 None Full Exam - General Neck inspection of neck Overall: normal size 10/28/2012 None Full Exam - General Neck inspection of neck Overall: normal appearance 10/28/2012 None Full Exam - General Neck inspection of neck Overall: no masses 10/28/2012 None Full Exam - General Respiratory auscultation Overall: breath sounds clear bilaterally 10/28/2012 None Full Exam - General Respiratory respiratory effort/rhythm Overall: no retractions 10/28/2012 None Full Exam - General Respiratory respiratory effort/rhythm Overall: normal rate 10/28/2012 None Full Exam - General Cardiovascular auscultation of heart Overall: regular rate 10/28/2012 None Full Exam - General Cardiovascular auscultation of heart Overall: normal heart sounds 10/28/2012 None Full Exam - General Cardiovascular auscultation of heart Overall: no murmurs 10/28/2012 None Full Exam - General Cardiovascular inspection of carotid pulses Overall: strong, bilaterally equal, no bruits 10/28/2012 None Full Exam - General Cardiovascular extremities Overall: no clubbing 10/28/2012 None Full Exam - General Cardiovascular extremities Edema present: pitting 10/28/2012 None Full Exam - General Cardiovascular extremities Edema present: severity 1+ - 4 +: 2 10/28/2012 None Full Exam - General Abdomen abdominal exam Contour: protuberant 10/28/2012 None Full Exam - General Lymphatic neck nodes Overall: anterior cervical chain benign 10/28/2012 None Full Exam - General Lymphatic neck nodes Overall: posterior cervical chain benign 10/28/2012 None Full Exam - General Musculoskeletal head and neck Overall: head atraumatic 10/28/2012 None Full Exam - General Musculoskeletal head and neck Overall: cervical spine benign 10/28/2012 None Full Exam - General Neurologic gait Overall: no ataxia, no unsteadiness 10/28/2012 None Full Exam - General Psychiatric orientation/consciousness Overall: oriented to person, place and time 10/28/2012 None Full Exam - General Psychiatric mood and affect Mood: anxious None Full Exam - General Psychiatric mood and affect Affect: mood congruent 10/28/2012 None Full Exam - General Musculoskeletal head and neck Overall: cervical spine benign 09/30/2012 None Full Exam - General Neurologic gait Overall: no ataxia, no unsteadiness 09/30/2012 None Full Exam - General Psychiatric orientation/consciousness Overall: oriented to person, place and time 09/30/2012 None Full Exam - General Psychiatric mood and affect Mood: anxious None Full Exam - General Psychiatric mood and affect Affect: mood congruent 09/30/2012 None Full Exam - General Constitutional general appearance Overall: well nourished 09/30/2012 None Full Exam - General Constitutional general appearance Overall: well developed 09/30/2012 None Full Exam - General Constitutional general appearance Overall: in no acute distress 09/30/2012 None Full Exam - General Ears/Nose/Throat oral cavity/pharynx/larynx Overall: oral mucosa clear 09/30/2012 None Full Exam - General Ears/Nose/Throat oral cavity/pharynx/larynx Overall: oropharyngeal mucosa clear 09/30/2012 None Full Exam - General Neck inspection of neck Overall: normal size 09/30/2012 None Full Exam - General Neck inspection of neck Overall: normal appearance 09/30/2012 None Full Exam - General Neck inspection of neck Overall: no masses 09/30/2012 None Full Exam - General Respiratory auscultation Overall: breath sounds clear bilaterally 09/30/2012 None Full Exam - General Respiratory respiratory effort/rhythm Overall: no retractions 09/30/2012 None Full Exam - General Respiratory respiratory effort/rhythm Overall: normal rate 09/30/2012 None Full Exam - General Cardiovascular auscultation of heart Overall: regular rate 09/30/2012 None Full Exam - General Cardiovascular auscultation of heart Overall: normal heart sounds 09/30/2012 None Full Exam - General Cardiovascular auscultation of heart Overall: no murmurs 09/30/2012 None Full Exam - General Cardiovascular inspection of carotid pulses Overall: strong, bilaterally equal, no bruits 09/30/2012 None Full Exam - General Cardiovascular extremities Overall: no clubbing 09/30/2012 None Full Exam - General Cardiovascular extremities Edema present: pitting 09/30/2012 None Full Exam - General Cardiovascular extremities Edema present: severity 1+ - 4 +: 2 09/30/2012 None Full Exam - General Abdomen abdominal exam Contour: protuberant 09/30/2012 None Full Exam - General Lymphatic neck nodes Overall: anterior cervical chain benign 09/30/2012 None Full Exam - General Lymphatic neck nodes Overall: posterior cervical chain benign 09/30/2012 None Full Exam - General Musculoskeletal head and neck Overall: head atraumatic 09/30/2012 None Full Exam - General Constitutional general appearance Overall: well developed 08/14/2012 None Full Exam - General Constitutional general appearance Overall: in no acute distress 08/14/2012 None Full Exam - General Ears/Nose/Throat oral cavity/pharynx/larynx Overall: oral mucosa clear 08/14/2012 None Full Exam - General Ears/Nose/Throat oral cavity/pharynx/larynx Overall: oropharyngeal mucosa clear 08/14/2012 None Full Exam - General Neck inspection of neck Overall: normal size 08/14/2012 None Full Exam - General Neck inspection of neck Overall: normal appearance 08/14/2012 None Full Exam - General Neck inspection of neck Overall: no masses 08/14/2012 None Full Exam - General Respiratory auscultation Overall: breath sounds clear bilaterally 08/14/2012 None Full Exam - General Respiratory respiratory effort/rhythm Overall: no retractions 08/14/2012 None Full Exam - General Respiratory respiratory effort/rhythm Overall: normal rate 08/14/2012 None Full Exam - General Cardiovascular auscultation of heart Overall: regular rate 08/14/2012 None Full Exam - General Cardiovascular auscultation of heart Overall: normal heart sounds 08/14/2012 None Full Exam - General Cardiovascular auscultation of heart Overall: no murmurs 08/14/2012 None Full Exam - General Cardiovascular inspection of carotid pulses Overall: strong, bilaterally equal, no bruits 08/14/2012 None Full Exam - General Constitutional general appearance Overall: well nourished 08/14/2012 None Full Exam - General Cardiovascular extremities Overall: no clubbing 08/14/2012 None Full Exam - General Cardiovascular extremities Edema present: pitting 08/14/2012 None Full Exam - General Cardiovascular extremities Edema present: severity 1+ - 4 +: 2 08/14/2012 None Full Exam - General Abdomen abdominal exam Contour: protuberant 08/14/2012 None Full Exam - General Lymphatic neck nodes Overall: anterior cervical chain benign 08/14/2012 None Full Exam - General Lymphatic neck nodes Overall: posterior cervical chain benign 08/14/2012 None Full Exam - General Musculoskeletal head and neck Overall: head atraumatic 08/14/2012 None Full Exam - General Musculoskeletal head and neck Overall: cervical spine benign 08/14/2012 None Full Exam - General Neurologic gait Overall: no ataxia, no unsteadiness 08/14/2012 None Full Exam - General Psychiatric orientation/consciousness Overall: oriented to person, place and time 08/14/2012 None Full Exam - General Psychiatric mood and affect Mood: anxious None Full Exam - General Psychiatric mood and affect Affect: mood congruent 08/14/2012 None Full Exam - General Constitutional general appearance Overall: well nourished 08/05/2012 None Full Exam - General Constitutional general appearance Overall: well developed 08/05/2012 None Full Exam - General Constitutional general appearance Overall: in no acute distress 08/05/2012 None Full Exam - General Ears/Nose/Throat oral cavity/pharynx/larynx Overall: oral mucosa clear 08/05/2012 None Full Exam - General Ears/Nose/Throat oral cavity/pharynx/larynx Overall: oropharyngeal mucosa clear 08/05/2012 None Full Exam - General Neck inspection of neck Overall: normal size 08/05/2012 None Full Exam - General Neck inspection of neck Overall: normal appearance 08/05/2012 None Full Exam - General Neck inspection of neck Overall: no masses 08/05/2012 None Full Exam - General Respiratory auscultation Overall: breath sounds clear bilaterally 08/05/2012 None Full Exam - General Respiratory respiratory effort/rhythm Overall: no retractions 08/05/2012 None Full Exam - General Respiratory respiratory effort/rhythm Overall: normal rate 08/05/2012 None Full Exam - General Cardiovascular auscultation of heart Overall: regular rate 08/05/2012 None Full Exam - General Cardiovascular auscultation of heart Overall: normal heart sounds 08/05/2012 None Full Exam - General Cardiovascular auscultation of heart Overall: no murmurs 08/05/2012 None Full Exam - General Cardiovascular inspection of carotid pulses Overall: strong, bilaterally equal, no bruits 08/05/2012 None Full Exam - General Cardiovascular extremities Overall: no clubbing 08/05/2012 None Full Exam - General Cardiovascular extremities Edema present: pitting 08/05/2012 None Full Exam - General Cardiovascular extremities Edema present: severity 1+ - 4 +: 2 08/05/2012 None Full Exam - General Abdomen abdominal exam Contour: protuberant 08/05/2012 None Full Exam - General Lymphatic neck nodes Overall: anterior cervical chain benign 08/05/2012 None Full Exam - General Lymphatic neck nodes Overall: posterior cervical chain benign 08/05/2012 None Full Exam - General Musculoskeletal head and neck Overall: head atraumatic 08/05/2012 None Full Exam - General Musculoskeletal head and neck Overall: cervical spine benign 08/05/2012 None Full Exam - General Neurologic gait Overall: no ataxia, no unsteadiness 08/05/2012 None Full Exam - General Psychiatric orientation/consciousness Overall: oriented to person, place and time 08/05/2012 None Full Exam - General Psychiatric mood and affect Mood: anxious None Full Exam - General Psychiatric mood and affect Affect: mood congruent 08/05/2012 None Full Exam - General Integument inspection of skin description of wound erythematous 08/05/2012 None Full Exam - General Integument inspection of skin description of wound indurated 08/05/2012 1-2+ pitting at the lateral edge of the wound on the right knee - tender, warm Full Exam - General Cardiovascular auscultation of heart Overall: no murmurs 07/15/2012 None Full Exam - General Cardiovascular inspection of carotid pulses Overall: strong, bilaterally equal, no bruits 07/15/2012 None Full Exam - General Cardiovascular extremities Overall: no clubbing 07/15/2012 None Full Exam - General Abdomen abdominal exam Contour: protuberant 07/15/2012 None Full Exam - General Lymphatic neck nodes Overall: anterior cervical chain benign 07/15/2012 None Full Exam - General Lymphatic neck nodes Overall: posterior cervical chain benign 07/15/2012 None Full Exam - General Musculoskeletal head and neck Overall: head atraumatic 07/15/2012 None Full Exam - General Musculoskeletal head and neck Overall: cervical spine benign 07/15/2012 None Full Exam - General Neurologic gait Overall: no ataxia, no unsteadiness 07/15/2012 None Full Exam - General Psychiatric orientation/consciousness Overall: oriented to person, place and time 07/15/2012 None Full Exam - General Psychiatric mood and affect Mood: anxious None Full Exam - General Psychiatric mood and affect Affect: mood congruent 07/15/2012 None Full Exam - General Cardiovascular extremities Edema present: pitting 07/15/2012 None Full Exam - General Cardiovascular extremities Edema present: severity 1+ - 4 +: 2 07/15/2012 None Full Exam - General Constitutional general appearance Overall: well nourished 07/15/2012 None Full Exam - General Constitutional general appearance Overall: well developed 07/15/2012 None Full Exam - General Constitutional general appearance Overall: in no acute distress 07/15/2012 None Full Exam - General Ears/Nose/Throat oral cavity/pharynx/larynx Overall: oral mucosa clear 07/15/2012 None Full Exam - General Ears/Nose/Throat oral cavity/pharynx/larynx Overall: oropharyngeal mucosa clear 07/15/2012 None Full Exam - General Neck inspection of neck Overall: normal size 07/15/2012 None Full Exam - General Neck inspection of neck Overall: normal appearance 07/15/2012 None Full Exam - General Neck inspection of neck Overall: no masses 07/15/2012 None Full Exam - General Respiratory auscultation Overall: breath sounds clear bilaterally 07/15/2012 None Full Exam - General Respiratory respiratory effort/rhythm Overall: no retractions 07/15/2012 None Full Exam - General Respiratory respiratory effort/rhythm Overall: normal rate 07/15/2012 None Full Exam - General Cardiovascular auscultation of heart Overall: regular rate 07/15/2012 None Full Exam - General Cardiovascular auscultation of heart Overall: normal heart sounds 07/15/2012 None Full Exam - General 1994 Respiratory auscultation Overall: breath sounds clear bilaterally 05/27/2012 None Full Exam - General 1994 Cardiovascular auscultation of heart Overall: regular rate 05/27/2012 None Full Exam - General 1994 Cardiovascular auscultation of heart Overall: normal heart sounds 05/27/2012 None Full Exam - General 1994 Cardiovascular auscultation of heart Overall: no murmurs 05/27/2012 None Full Exam - General 1994 Cardiovascular extremities Overall: no clubbing 05/27/2012 None Full Exam - General 1994 Integument inspection of skin Location: left foot 05/27/2012 digist on left foot with subungual discoloration, has not advanced in the past 3-4 months. Full Exam - General 1994 Psychiatric orientation/consciousness Overall: oriented to person, place and time 05/27/2012 None Full Exam - General 1994 Psychiatric mood and affect Mood: happy 05/27/2012 None Full Exam - General 1994 Psychiatric mood and affect Overall: normal mood and affect 05/27/2012 None Full Exam - General 1994 Constitutional general appearance Overall: well nourished 05/27/2012 None Full Exam - General 1994 Constitutional general appearance Overall: well developed 05/27/2012 None Full Exam - General 1994 Constitutional general appearance Overall: in no acute distress 05/27/2012 None Full Exam - General 1994 Respiratory respiratory effort/rhythm Overall: normal rate 05/27/2012 None Full Exam - General 1994 Respiratory respiratory effort/rhythm Overall: no retractions 05/27/2012 None Full Exam - General Constitutional general appearance Overall: well nourished 05/03/2012 None Full Exam - General Constitutional general appearance Overall: well developed 05/03/2012 None Full Exam - General Constitutional general appearance Overall: in no acute distress 05/03/2012 None Full Exam - General Eyes conjunctiva/ eyelids Overall: conjunctiva clear 05/03/2012 None Full Exam - General Eyes pupils and irises Overall: pupils equal, round, reactive to light and accomodation 05/03/2012 None Full Exam - General Ears/Nose/Throat otoscopic exam Overall: external auditory canals clear 05/03/2012 None Full Exam - General Ears/Nose/Throat otoscopic exam Overall: tympanic membranes clear 05/03/2012 None Full Exam - General Ears/Nose/Throat oral cavity/pharynx/larynx Oropharynx: a normal exam 05/03/2012 None Full Exam - General Respiratory auscultation Overall: breath sounds clear bilaterally 05/03/2012 None Full Exam - General Respiratory respiratory effort/rhythm Overall: no retractions 05/03/2012 None Full Exam - General Respiratory respiratory effort/rhythm Overall: normal rate 05/03/2012 None Full Exam - General Cardiovascular auscultation of heart Overall: regular rate 05/03/2012 None Full Exam - General Cardiovascular auscultation of heart Overall: normal heart sounds 05/03/2012 None Full Exam - General Cardiovascular auscultation of heart Overall: no murmurs 05/03/2012 None Full Exam - General Abdomen abdominal exam Overall: no tenderness 05/03/2012 None Full Exam - General Abdomen abdominal exam Overall: normal bowel sounds 05/03/2012 None Full Exam - General Neurologic cranial nerves Overall: cranial nerves 2-12 grossly intact 05/03/2012 None Full Exam - General Psychiatric orientation/consciousness Overall: oriented to person, place and time 05/03/2012 None Full Exam - General 1994 Constitutional general appearance Overall: well nourished 04/23/2012 None Full Exam - General 1994 Constitutional general appearance Overall: well developed 04/23/2012 None Full Exam - General 1994 Constitutional general appearance Overall: in no acute distress 04/23/2012 None Full Exam - General 1994 Cardiovascular extremities Edema present: pitting 04/23/2012 None Full Exam - General 1994 Integument inspection of skin Location: back 04/23/2012 None Full Exam - General 1994 Integument inspection of skin Location: right arm 04/23/2012 None Full Exam - General 1994 Integument inspection of skin Rash/Lesions: macule 04/23/2012 None Full Exam - General 1994 Integument inspection of skin Pigmentation: hyperpigmentation 04/23/2012 None Full Exam - General 1994 Psychiatric orientation/consciousness Overall: oriented to person, place and time 04/23/2012 None Full Exam - General 1994 Psychiatric mood and affect Mood: happy 04/23/2012 None Full Exam - General 1994 Psychiatric mood and affect Overall: normal mood and affect 04/23/2012 None Full Exam - General 1994 Eyes pupils and irises Overall: pupils equal, round, reactive to light and accomodation 03/25/2012 None Full Exam - General 1994 Respiratory auscultation Overall: breath sounds clear bilaterally 03/25/2012 None Full Exam - General 1994 Respiratory respiratory effort/rhythm Overall: no retractions 03/25/2012 None Full Exam - General 1994 Respiratory respiratory effort/rhythm Overall: normal rate 03/25/2012 None Full Exam - General 1994 Cardiovascular extremities Overall: no clubbing 03/25/2012 None Full Exam - General 1994 Cardiovascular extremities Edema present: pitting 03/25/2012 None Full Exam - General 1994 Cardiovascular extremities Edema present: severity 1+ - 4 +: _ 03/25/2012 None Full Exam - General 1994 Cardiovascular extremities Edema present: bilateral 03/25/2012 None Full Exam - General 1994 Cardiovascular auscultation of heart Overall: regular rate 03/25/2012 None Full Exam - General 1994 Cardiovascular auscultation of heart Overall: normal heart sounds 03/25/2012 None Full Exam - General 1994 Lymphatic neck nodes Overall: anterior cervical chain benign 03/25/2012 None Full Exam - General 1994 Lymphatic neck nodes Overall: posterior cervical chain benign 03/25/2012 None Full Exam - General 1994 Psychiatric orientation/consciousness Overall: oriented to person, place and time 03/25/2012 None Full Exam - General 1994 Psychiatric mood and affect Overall: normal mood and affect 03/25/2012 None Full Exam - General 1994 Constitutional general appearance Development: well developed 03/25/2012 None Full Exam - General 1994 Constitutional general appearance Development: appears stated age 0703/25/2012 None Full Exam - General 1994 Constitutional general appearance Overall: in no acute distress 03/25/2012 None Full Exam - General 1994 Constitutional general appearance Overall: well nourished 03/25/2012 None Full Exam - General 1994 Constitutional general appearance Development: well developed 03/12/2012 None Full Exam - General 1994 Constitutional general appearance Development: appears stated age 0703/12/2012 None Full Exam - General 1994 Psychiatric orientation/consciousness Overall: oriented to person, place and time 03/12/2012 None Full Exam - General 1994 Psychiatric mood and affect Overall: normal mood and affect 03/12/2012 None Full Exam - General 1994 Lymphatic neck nodes Overall: anterior cervical chain benign 03/12/2012 None Full Exam - General 1994 Lymphatic neck nodes Overall: posterior cervical chain benign 03/12/2012 None Full Exam - General 1994 Constitutional general appearance Overall: in no acute distress 03/12/2012 None Full Exam - General 1994 Constitutional general appearance Overall: well nourished 03/12/2012 None Full Exam - General 1994 Eyes pupils and irises Overall: pupils equal, round, reactive to light and accomodation 03/12/2012 None Full Exam - General 1994 Respiratory auscultation Overall: breath sounds clear bilaterally 03/12/2012 None Full Exam - General 1994 Respiratory respiratory effort/rhythm Overall: no retractions 03/12/2012 None Full Exam - General 1994 Respiratory respiratory effort/rhythm Overall: normal rate 03/12/2012 None Full Exam - General 1994 Cardiovascular extremities Overall: no clubbing 03/12/2012 None Full Exam - General 1994 Cardiovascular extremities Edema present: pitting 03/12/2012 None Full Exam - General 1994 Cardiovascular extremities Edema present: severity 1+ - 4 +: _ 03/12/2012 None Full Exam - General 1994 Cardiovascular extremities Edema present: bilateral 03/12/2012 None Full Exam - General 1994 Cardiovascular auscultation of heart Overall: regular rate 03/12/2012 None Full Exam - General 1994 Cardiovascular auscultation of heart Overall: normal heart sounds 03/12/2012 None Full Exam - General 1994 Respiratory auscultation Overall: breath sounds clear bilaterally 01/23/2012 None Full Exam - General 1994 Cardiovascular extremities Edema present: severity 1+ - 4 +: 1 01/23/2012 None Full Exam - General 1994 Cardiovascular auscultation of heart Overall: regular rate 01/23/2012 None Full Exam - General 1994 Cardiovascular auscultation of heart Overall: normal heart sounds 01/23/2012 None Full Exam - General 1994 Psychiatric orientation/consciousness Overall: oriented to person, place and time 01/23/2012 None Full Exam - General 1994 Psychiatric mood and affect Mood: happy 01/23/2012 None Full Exam - General 1994 Psychiatric mood and affect Overall: normal mood and affect 01/23/2012 None Full Exam - General 1994 Integument inspection of skin Overall: no rash, lesions 01/23/2012 None Full Exam - General 1994 Lymphatic neck nodes Overall: anterior cervical chain benign 01/23/2012 None Full Exam - General 1994 Lymphatic neck nodes Overall: posterior cervical chain benign 01/23/2012 None Full Exam - General 1994 Abdomen abdominal exam Overall: no tenderness 01/23/2012 None Full Exam - General 1994 Abdomen abdominal exam Overall: normal bowel sounds 01/23/2012 None Full Exam - General 1994 Abdomen abdominal exam Contour: rounded 01/23/2012 None Full Exam - General 1994 Respiratory respiratory effort/rhythm Overall: normal rate 01/23/2012 None Full Exam - General 1994 Respiratory respiratory effort/rhythm Overall: no retractions 01/23/2012 None Full Exam - General 1994 Constitutional general appearance Overall: well nourished 01/23/2012 None Full Exam - General 1994 Constitutional general appearance Overall: well developed 01/23/2012 None Full Exam - General 1994 Constitutional general appearance Overall: in no acute distress 01/23/2012 None Full Exam - General 1994 Eyes pupils and irises Overall: pupils equal, round, reactive to light and accomodation 01/23/2012 None Full Exam - General 1994 Cardiovascular extremities Overall: no clubbing 01/23/2012 None Full Exam - General 1994 Cardiovascular extremities Edema present: pitting 01/23/2012 None Full Exam - General 1994 Cardiovascular extremities Edema present: bilateral 01/23/2012 None Full Exam - General 1994 Chest/Breast breast and axillae palpation Axillae: no mass 01/12/2012 None Full Exam - General 1994 Chest/Breast breast and axillae palpation Axillae: non- tender 01/12/2012 None Full Exam - General 1994 Chest/Breast breast and axillae palpation Overall: breasts non-tender 01/12/2012 None Full Exam - General 1994 Chest/Breast breast and axillae palpation Overall: axillae non-tender 01/12/2012 None Full Exam - General 1994 Chest/Breast breast and axillae palpation Overall: no nipple discharge 01/12/2012 None Full Exam - General 1994 Chest/Breast breast/chest inspection Overall: breasts to symmetric and without lesions 01/12/2012 None Full Exam - General 1994 Constitutional general appearance Overall: well nourished 01/12/2012 None Full Exam - General 1994 Constitutional general appearance Overall: well developed 01/12/2012 None Full Exam - General 1994 Constitutional general appearance Overall: in no acute distress 01/12/2012 None Full Exam - General 1994 Respiratory auscultation Overall: breath sounds clear bilaterally 01/12/2012 None Full Exam - General 1994 Respiratory respiratory effort/rhythm Overall: normal rate 01/12/2012 None Full Exam - General 1994 Respiratory respiratory effort/rhythm Overall: no retractions 01/12/2012 None Full Exam - General 1994 Cardiovascular auscultation of heart Overall: regular rate 01/12/2012 None Full Exam - General 1994 Cardiovascular auscultation of heart Overall: normal heart sounds 01/12/2012 None Full Exam - General 1994 Cardiovascular auscultation of heart Overall: no murmurs 01/12/2012 None Full Exam - General 1995 Chest/Breast breast and axillae palpation Nipple: non- tender 01/12/2012 None Full Exam - General Respiratory respiratory effort/rhythm Overall: normal rate 12/25/2011 None Full Exam - General Ears/Nose/Throat oral cavity/pharynx/larynx Overall: oropharyngeal mucosa clear 12/25/2011 None Full Exam - General Lymphatic neck nodes Overall: anterior cervical chain benign 12/25/2011 None Full Exam - General Lymphatic neck nodes Overall: posterior cervical chain benign 12/25/2011 None Full Exam - General Musculoskeletal head and neck Overall: head atraumatic 12/25/2011 None Full Exam - General Musculoskeletal head and neck Overall: cervical spine benign 12/25/2011 None Full Exam - General Neck inspection of neck Overall: normal size 12/25/2011 None Full Exam - General Neck inspection of neck Overall: normal appearance 12/25/2011 None Full Exam - General Neck inspection of neck Overall: no masses 12/25/2011 None Full Exam - General Neurologic gait Overall: no ataxia, no unsteadiness 12/25/2011 None Full Exam - General Psychiatric orientation/consciousness Overall: oriented to person, place and time 12/25/2011 None Full Exam - General Psychiatric mood and affect Mood: anxious None Full Exam - General Psychiatric mood and affect Affect: mood congruent 12/25/2011 None Full Exam - General Respiratory auscultation Overall: breath sounds clear bilaterally 12/25/2011 None Full Exam - General Respiratory respiratory effort/rhythm Overall: no retractions 12/25/2011 None Full Exam - General Abdomen abdominal exam Contour: protuberant 12/25/2011 None Full Exam - General Cardiovascular auscultation of heart Overall: regular rate 12/25/2011 None Full Exam - General Cardiovascular auscultation of heart Overall: normal heart sounds 12/25/2011 None Full Exam - General Cardiovascular auscultation of heart Overall: no murmurs 12/25/2011 None Full Exam - General Cardiovascular inspection of carotid pulses Overall: strong, bilaterally equal, no bruits 12/25/2011 None Full Exam - General Cardiovascular extremities Overall: no clubbing 12/25/2011 None Full Exam - General Constitutional general appearance Overall: well nourished 12/25/2011 None Full Exam - General Constitutional general appearance Overall: well developed 12/25/2011 None Full Exam - General Constitutional general appearance Overall: in no acute distress 12/25/2011 None Full Exam - General Ears/Nose/Throat oral cavity/pharynx/larynx Overall: oral mucosa clear 12/25/2011 None Full Exam - General Lymphatic neck nodes Overall: anterior cervical chain benign 12/04/2011 None Full Exam - General Lymphatic neck nodes Overall: posterior cervical chain benign 12/04/2011 None Full Exam - General Musculoskeletal head and neck Overall: head atraumatic 12/04/2011 None Full Exam - General Musculoskeletal head and neck Overall: cervical spine benign 12/04/2011 None Full Exam - General Neck inspection of neck Overall: normal size 12/04/2011 None Full Exam - General Neck inspection of neck Overall: normal appearance 12/04/2011 None Full Exam - General Neck inspection of neck Overall: no masses 12/04/2011 None Full Exam - General Neurologic gait Overall: no ataxia, no unsteadiness 12/04/2011 None Full Exam - General Psychiatric orientation/consciousness Overall: oriented to person, place and time 12/04/2011 None Full Exam - General Psychiatric mood and affect Mood: anxious None Full Exam - General Psychiatric mood and affect Affect: mood congruent 12/04/2011 None Full Exam - General Respiratory auscultation Overall: breath sounds clear bilaterally 12/04/2011 None Full Exam - General Respiratory respiratory effort/rhythm Overall: no retractions 12/04/2011 None Full Exam - General Respiratory respiratory effort/rhythm Overall: normal rate 12/04/2011 None Full Exam - General Abdomen abdominal exam Contour: protuberant 12/04/2011 None Full Exam - General Cardiovascular auscultation of heart Overall: regular rate 12/04/2011 None Full Exam - General Cardiovascular auscultation of heart Overall: normal heart sounds 12/04/2011 None Full Exam - General Cardiovascular auscultation of heart Overall: no murmurs 12/04/2011 None Full Exam - General Cardiovascular inspection of carotid pulses Overall: strong, bilaterally equal, no bruits 12/04/2011 None Full Exam - General Cardiovascular extremities Overall: no clubbing 12/04/2011 None Full Exam - General Constitutional general appearance Overall: well nourished 12/04/2011 None Full Exam - General Constitutional general appearance Overall: well developed 12/04/2011 None Full Exam - General Constitutional general appearance Overall: in no acute distress 12/04/2011 None Full Exam - General Ears/Nose/Throat oral cavity/pharynx/larynx Overall: oral mucosa clear 12/04/2011 None Full Exam - General Ears/Nose/Throat oral cavity/pharynx/larynx Overall: oropharyngeal mucosa clear 12/04/2011 None Full Exam - General Cardiovascular extremities Edema present: severity 1+ - 4 +: 2+ 12/04/2011 None Full Exam - General Cardiovascular extremities Edema present: bilateral 12/04/2011 None Full Exam - General Cardiovascular extremities Edema present: to knees 12/04/2011 None Full Exam - General Constitutional general appearance Overall: well nourished 09/20/2011 None Full Exam - General Constitutional general appearance Overall: well developed 09/20/2011 None Full Exam - General Constitutional general appearance Overall: in no acute distress 09/20/2011 None Full Exam - General Ears/Nose/Throat oral cavity/pharynx/larynx Overall: oral mucosa clear 09/20/2011 None Full Exam - General Ears/Nose/Throat oral cavity/pharynx/larynx Overall: oropharyngeal mucosa clear 09/20/2011 None Full Exam - General Neck inspection of neck Overall: normal size 09/20/2011 None Full Exam - General Neck inspection of neck Overall: normal appearance 09/20/2011 None Full Exam - General Neck inspection of neck Overall: no masses 09/20/2011 None Full Exam - General Respiratory auscultation Overall: breath sounds clear bilaterally 09/20/2011 None Full Exam - General Respiratory respiratory effort/rhythm Overall: no retractions 09/20/2011 None Full Exam - General Respiratory respiratory effort/rhythm Overall: normal rate 09/20/2011 None Full Exam - General Cardiovascular auscultation of heart Overall: regular rate 09/20/2011 None Full Exam - General Cardiovascular auscultation of heart Overall: normal heart sounds 09/20/2011 None Full Exam - General Cardiovascular auscultation of heart Overall: no murmurs 09/20/2011 None Full Exam - General Cardiovascular inspection of carotid pulses Overall: strong, bilaterally equal, no bruits 09/20/2011 None Full Exam - General Cardiovascular extremities Overall: no clubbing 09/20/2011 None Full Exam - General Abdomen abdominal exam Contour: protuberant 09/20/2011 None Full Exam - General Lymphatic neck nodes Overall: anterior cervical chain benign 09/20/2011 None Full Exam - General Lymphatic neck nodes Overall: posterior cervical chain benign 09/20/2011 None Full Exam - General Musculoskeletal head and neck Overall: head atraumatic 09/20/2011 None Full Exam - General Musculoskeletal head and neck Overall: cervical spine benign 09/20/2011 None Full Exam - General Neurologic gait Overall: no ataxia, no unsteadiness 09/20/2011 None Full Exam - General Psychiatric orientation/consciousness Overall: oriented to person, place and time 09/20/2011 None Full Exam - General Psychiatric mood and affect Mood: anxious None Full Exam - General Psychiatric mood and affect Affect: mood congruent 09/20/2011 None Full Exam - General Abdomen abdominal exam Overall: no tenderness 09/06/2011 None Full Exam - General Abdomen abdominal exam Overall: normal bowel sounds 09/06/2011 None Full Exam - General Abdomen abdominal exam Contour: protuberant 09/06/2011 None Full Exam - General Abdomen liver and spleen exam Overall: no hepatosplenomegaly 09/06/2011 None Full Exam - General Cardiovascular auscultation of heart Overall: regular rate 09/06/2011 None Full Exam - General Cardiovascular auscultation of heart Overall: normal heart sounds 09/06/2011 None Full Exam - General Cardiovascular auscultation of heart Overall: no murmurs 09/06/2011 None Full Exam - General Chest/Breast breast/ chest inspection Overall: normal chest shape 09/06/2011 None Full Exam - General Constitutional general appearance Overall: well nourished 09/06/2011 None Full Exam - General Constitutional general appearance Overall: well developed 09/06/2011 None Full Exam - General Constitutional general appearance Overall: in no acute distress 09/06/2011 None Full Exam - General Ears/Nose/Throat otoscopic exam Overall: external auditory canals clear 09/06/2011 None Full Exam - General Ears/Nose/Throat otoscopic exam Overall: tympanic membranes clear 09/06/2011 None Full Exam - General Ears/Nose/Throat oral cavity/pharynx/larynx Overall: oral mucosa clear 09/06/2011 None Full Exam - General Ears/Nose/Throat oral cavity/pharynx/larynx Overall: oropharyngeal mucosa clear 09/06/2011 None Full Exam - General Lymphatic neck nodes Overall: anterior cervical chain benign 09/06/2011 None Full Exam - General Lymphatic neck nodes Overall: posterior cervical chain benign 09/06/2011 None Full Exam - General Musculoskeletal head and neck Overall: head atraumatic 09/06/2011 None Full Exam - General Musculoskeletal head and neck Overall: cervical spine benign 09/06/2011 None Full Exam - General Neck inspection of neck Overall: normal size 09/06/2011 None Full Exam - General Neck inspection of neck Overall: normal appearance 09/06/2011 None Full Exam - General Neck inspection of neck Overall: no masses 09/06/2011 None Full Exam - General Neurologic gait Overall: no ataxia, no unsteadiness 09/06/2011 None Full Exam - General Psychiatric orientation/consciousness Overall: oriented to person, place and time 09/06/2011 None Full Exam - General Respiratory auscultation Overall: breath sounds clear bilaterally 09/06/2011 None Full Exam - General Respiratory respiratory effort/rhythm Overall: no retractions 09/06/2011 None Full Exam - General Respiratory respiratory effort/rhythm Overall: normal rate 09/06/2011 None Full Exam - General Cardiovascular inspection of carotid pulses Overall: strong, bilaterally equal, no bruits 09/06/2011 None Full Exam - General Cardiovascular extremities Overall: no clubbing 09/06/2011 None Full Exam - General Psychiatric mood and affect Mood: anxious None Full Exam - General Psychiatric mood and affect Affect: mood congruent 09/06/2011 None Full Exam - General Cardiovascular inspection of carotid pulses Overall: strong, bilaterally equal, no bruits 08/30/2011 None Full Exam - General Chest/Breast breast/ chest inspection Overall: normal chest shape 08/30/2011 None Full Exam - General Abdomen abdominal exam Overall: no tenderness 08/30/2011 None Full Exam - General Abdomen abdominal exam Overall: normal bowel sounds 08/30/2011 None Full Exam - General Abdomen abdominal exam Contour: protuberant 08/30/2011 None Full Exam - General Abdomen liver and spleen exam Overall: no hepatosplenomegaly 08/30/2011 None Full Exam - General Lymphatic neck nodes Overall: anterior cervical chain benign 08/30/2011 None Full Exam - General Lymphatic neck nodes Overall: posterior cervical chain benign 08/30/2011 None Full Exam - General Musculoskeletal head and neck Overall: head atraumatic 08/30/2011 None Full Exam - General Musculoskeletal head and neck Overall: cervical spine benign 08/30/2011 None Full Exam - General Neurologic gait Overall: no ataxia, no unsteadiness 08/30/2011 None Full Exam - General Psychiatric orientation/consciousness Overall: oriented to person, place and time 08/30/2011 None Full Exam - General Psychiatric mood and affect Overall: normal mood and affect 08/30/2011 None Full Exam - General Cardiovascular extremities Overall: no clubbing 08/30/2011 None Full Exam - General Constitutional general appearance Overall: well nourished 08/30/2011 None Full Exam - General Constitutional general appearance Overall: well developed 08/30/2011 None Full Exam - General Constitutional general appearance Overall: in no acute distress 08/30/2011 None Full Exam - General Ears/Nose/Throat otoscopic exam Overall: external auditory canals clear 08/30/2011 None Full Exam - General Ears/Nose/Throat otoscopic exam Overall: tympanic membranes clear 08/30/2011 None Full Exam - General Ears/Nose/Throat oral cavity/pharynx/larynx Overall: oral mucosa clear 08/30/2011 None Full Exam - General Ears/Nose/Throat oral cavity/pharynx/larynx Overall: oropharyngeal mucosa clear 08/30/2011 None Full Exam - General Neck inspection of neck Overall: normal size 08/30/2011 None Full Exam - General Neck inspection of neck Overall: normal appearance 08/30/2011 None Full Exam - General Neck inspection of neck Overall: no masses 08/30/2011 None Full Exam - General Respiratory auscultation Overall: breath sounds clear bilaterally 08/30/2011 None Full Exam - General Respiratory respiratory effort/rhythm Overall: no retractions 08/30/2011 None Full Exam - General Respiratory respiratory effort/rhythm Overall: normal rate 08/30/2011 None Full Exam - General Cardiovascular auscultation of heart Overall: regular rate 08/30/2011 None Full Exam - General Cardiovascular auscultation of heart Overall: normal heart sounds 08/30/2011 None Full Exam - General Cardiovascular auscultation of heart Overall: no murmurs 08/30/2011 None Full Exam - ENT Constitutional general appearance Overall: well nourished 08/23/2011 None Full Exam - ENT Constitutional general appearance Overall: well developed 08/23/2011 None Full Exam - ENT Constitutional general appearance Overall: in no acute distress 08/23/2011 None Full Exam - ENT Ears/Nose/Throat otoscopic exam Overall: external auditory canals normal 08/23/2011 None Full Exam - ENT Ears/Nose/Throat otoscopic exam Overall: tympanic membranes normal 08/23/2011 None Full Exam - ENT Ears/Nose/Throat oropharynx Oropharynx: a normal exam 08/23/2011 None Full Exam - ENT Face and Head inspection of face/head Overall: no scars, lesions, masses 08/23/2011 None Full Exam - ENT Face and Head palpation Left maxillary sinus: tender 08/23/2011 None Full Exam - ENT Face and Head palpation Right maxillary sinus: tender 08/23/2011 None Full Exam - ENT Face and Head palpation Left frontal sinus: tender 08/23/2011 None Full Exam - ENT Face and Head palpation Right frontal sinus: tender 08/23/2011 None Full Exam - ENT Respiratory auscultation Overall: breath sounds clear bilaterally 08/23/2011 None Full Exam - ENT Cardiovascular auscultation of heart Overall: normal heart sounds 08/23/2011 None Full Exam - ENT Cardiovascular auscultation of heart Overall: regular rate 08/23/2011 None Full Exam - ENT Lymphatic palpation of lymph nodes Overall: anterior cervical chain benign 08/23/2011 None Full Exam - ENT Lymphatic palpation of lymph nodes Overall: posterior cervical chain benign 08/23/2011 None Full Exam - Dermatology Constitutional general appearance Overall: well nourished 08/09/2011 None Full Exam - Dermatology Constitutional general appearance Overall: well developed 08/09/2011 None Full Exam - Dermatology Constitutional general appearance Overall: in no acute distress 08/09/2011 None Full Exam - Dermatology Respiratory auscultation Overall: breath sounds clear bilaterally 08/09/2011 None Full Exam - Dermatology Respiratory respiratory effort/rhythm Overall: no retractions 08/09/2011 None Full Exam - Dermatology Respiratory respiratory effort/rhythm Overall: normal rate 08/09/2011 None Full Exam - Dermatology Integument insp & palp - genitalia/groin/buttocks Lesion: papule 08/09/2011 None Full Exam - Dermatology Integument insp & palp - genitalia/groin/buttocks Distribution: isolated 08/09/2011 None Full Exam - Dermatology Integument insp & palp - genitalia/groin/buttocks Location: on the left groin 08/09/2011 -left labia. Pinpoint pustular lesion noted to left labia, no induration, redness or tenderness. Unroofed lesion with sterile q-tip-scant blood drainage noted. Full Exam - Dermatology Integument insp & palp - genitalia/groin/buttocks Number: one 08/09/2011 None Full Exam - Dermatology Psychiatric orientation Overall: oriented to person, place and time 08/09/2011 None Full Exam - Dermatology Cardiovascular peripheral vascular system Overall: warm extremities 08/09/2011 None Full Exam - Dermatology Cardiovascular peripheral vascular system Overall: no edema 08/09/2011 None Full Exam - Dermatology Genitourinary labia and vagina Vaginal discharge: absent 08/09/2011 None Full Exam - Dermatology Integument insp & palp - abdomen Overall: no rashes or lesions 08/09/2011 None Full Exam - Dermatology Integument insp & palp - abdomen Overall: mass or induration 08/09/2011 None Full Exam - Dermatology Neurologic mental status Overall: alert 08/09/2011 None Full Exam - Dermatology Neurologic mental status Overall: oriented 08/09/2011 None Full Exam - General Neck inspection of neck Overall: normal size 05/04/2011 None Full Exam - General Neck inspection of neck Overall: no masses 05/04/2011 None Full Exam - General Neck inspection of neck Overall: normal appearance 05/04/2011 None Full Exam - General Respiratory auscultation Overall: breath sounds clear bilaterally 05/04/2011 None Full Exam - General Respiratory respiratory effort/rhythm Overall: no retractions 05/04/2011 None Full Exam - General Respiratory respiratory effort/rhythm Overall: normal rate 05/04/2011 None Full Exam - General Cardiovascular auscultation of heart Overall: regular rate 05/04/2011 None Full Exam - General Abdomen liver and spleen exam Overall: no hepatosplenomegaly 05/04/2011 None Full Exam - General Lymphatic neck nodes Overall: anterior cervical chain benign 05/04/2011 None Full Exam - General Lymphatic neck nodes Overall: posterior cervical chain benign 05/04/2011 None Full Exam - General Musculoskeletal head and neck Overall: head atraumatic 05/04/2011 None Full Exam - General Musculoskeletal head and neck Overall: cervical spine benign 05/04/2011 None Full Exam - General Psychiatric orientation/consciousness Overall: oriented to person, place and time 05/04/2011 None Full Exam - General Psychiatric mood and affect Overall: normal mood and affect 05/04/2011 None Full Exam - General Neurologic gait Overall: no ataxia, no unsteadiness 05/04/2011 None Full Exam - General Constitutional general appearance Overall: well nourished 05/04/2011 None Full Exam - General Eyes pupils and irises Overall: pupils equal, round, reactive to light and accomodation 05/04/2011 None Full Exam - General Ears/Nose/Throat otoscopic exam Overall: external auditory canals clear 05/04/2011 None Full Exam - General Ears/Nose/Throat otoscopic exam Overall: tympanic membranes clear 05/04/2011 None Full Exam - General Ears/Nose/Throat oral cavity/pharynx/larynx Overall: oral mucosa clear 05/04/2011 None Full Exam - General Ears/Nose/Throat oral cavity/pharynx/larynx Overall: oropharyngeal mucosa clear 05/04/2011 None Full Exam - General Constitutional general appearance Overall: well developed 05/04/2011 None Full Exam - General Constitutional general appearance Overall: in no acute distress 05/04/2011 None Full Exam - General Cardiovascular auscultation of heart Overall: normal heart sounds 05/04/2011 None Full Exam - General Cardiovascular auscultation of heart Overall: no murmurs 05/04/2011 None Full Exam - General Chest/Breast breast/ chest inspection Overall: normal chest shape 05/04/2011 None Full Exam - General Abdomen abdominal exam Overall: no tenderness 05/04/2011 None Full Exam - General Abdomen abdominal exam Overall: normal bowel sounds 05/04/2011 None Full Exam - General Abdomen abdominal exam Contour: protuberant 05/04/2011 None Full Exam - General Constitutional general appearance Overall: well developed 04/19/2011 None Full Exam - General Constitutional general appearance Overall: in no acute distress 04/19/2011 None Full Exam - General Eyes pupils and irises Overall: pupils equal, round, reactive to light and accomodation 04/19/2011 None Full Exam - General Ears/Nose/Throat otoscopic exam Left tympanic membrane: air -fluid level 04/19/2011 None Full Exam - General Ears/Nose/Throat otoscopic exam Right tympanic membrane: air-fluid level 04/19/2011 None Full Exam - General Ears/Nose/Throat oral cavity/pharynx/larynx Posterior Pharynx: purulent post nasal drainage 04/19/2011 None Full Exam - General Ears/Nose/Throat oral cavity/pharynx/larynx Oral mucosa: dry 04/19/2011 None Full Exam - General Respiratory auscultation Diffuse: expiratory wheezes 04/19/2011 None Full Exam - General Cardiovascular auscultation of heart Overall: normal heart sounds 04/19/2011 None Full Exam - General Abdomen abdominal exam Overall: normal bowel sounds 04/19/2011 None Full Exam - General Abdomen abdominal exam Overall: no tenderness 04/19/2011 None Full Exam - General Lymphatic neck nodes Overall: shotty lymphadenopathy 04/19/2011 None Full Exam - General Integument inspection of skin Overall: no rash, lesions 04/19/2011 None Full Exam - General Psychiatric orientation/consciousness Overall: oriented to person, place and time 04/19/2011 None Full Exam - General Constitutional general appearance Overall: well nourished 04/19/2011 None Procedures Procedure Codes Date PPPS, SUBSEQ VISIT CPT -4: G0439 04/25/2018 TRIAMCINOLONE ACET INJ NOS CPT-4: J3301 08/09/2017 ROCEPHIN, PER 250 MG CPT-4: J0696 08/09/2017 PPPS, SUBSEQ VISIT CPT -4: G0439 04/12/2017 DEPRESSION SCREEN ANNUAL CPT-4: G0444 04/12/2017 FALL RISK ASSESSMENT DOCD CPT-4: 3288F 04/12/2017 THER/PROPH/DIAG INJ SC/IM CPT-4: 24342 01/04/2017 TRIAMCINOLONE ACET INJ NOS CPT-4: J3301 01/04/2017 TRIAMCINOLONE ACET INJ NOS CPT-4: J3301 08/23/2016 THER/PROPH/DIAG INJ SC/IM CPT-4: 55185 08/23/2016 ROUTINE VENIPUNCTURE CPT-4: 30408 08/28/2014 ADMIN INFLUENZA VIRUS VAC Assigned to/Yancy Howell CPT-4: [id number] 05/20/2014 FLU VAC NO PRSV 4 PREMA 3 YRS+ CPT-4: 27554 05/20/2014 URINALYSIS NONAUTO W/O SCOPE CPT-4: 50892 05/07/2014 ROCEPHIN, PER 250 MG CPT-4: J0696 05/07/2014 ROUTINE VENIPUNCTURE CPT-4: 61395 04/14/2014 DESTRUCT PREMALG LESION CPT-4: 35176 01/27/2014 DESTRUCT PREMALG LES 2-14 CPT-4: 31578 01/27/2014 ROCEPHIN, PER 250 MG CPT-4: J0696 12/26/2013 TRIAMCINOLONE ACET INJ NOS CPT-4: J3301 12/26/2013 TRIAMCINOLONE ACET INJ NOS CPT-4: J3301 11/12/2013 ROUTINE VENIPUNCTURE CPT-4: 53687 11/12/2013 ROCEPHIN, PER 250 MG CPT-4: J0696 10/09/2013 ROUTINE VENIPUNCTURE CPT-4: 52712 03/31/2013 URINALYSIS NONAUTO W/O SCOPE CPT-4: 35474 03/21/2013 TRIAMCINOLONE ACET INJ NOS CPT-4: J3301 11/21/2012 URINALYSIS NONAUTO W/O SCOPE CPT-4: 00496 09/30/2012 URINALYSIS NONAUTO W/O SCOPE CPT-4: 23628 09/11/2012 ROUTINE VENIPUNCTURE CPT-4: 28352 09/11/2012 PRESCRIP TRANSMIT VIA ERX SY CPT-4: G8553 08/05/2012 ADMIN INFLUENZA VIRUS VAC CPT-4: G0008 05/03/2012 FLULAVAL VACC, 3 YRS & >, IM CPT-4: Q2036 05/03/2012 EXC TR-EXT B9+ANA 0.6-1 CM CPT-4: 81979 04/23/2012 ROUTINE VENIPUNCTURE CPT-4: 22665 04/16/2012 ROUTINE VENIPUNCTURE CPT-4: 20944 12/21/2011 PRESCRIP TRANSMIT VIA ERX SY CPT-4: G8553 12/04/2011 URINALYSIS NONAUTO W/O SCOPE CPT-4: 03728 12/01/2011 URINALYSIS NONAUTO W/O SCOPE CPT-4: 65629 11/20/2011 PRESCRIP TRANSMIT VIA ERX SY CPT-4: G8553 09/20/2011 URINALYSIS NONAUTO W/O SCOPE CPT-4: 55558 09/06/2011 ROCEPHIN, PER 250 MG CPT-4: J0696 08/30/2011 THER/PROPH/DIAG INJ SC/IM CPT-4: 88855 08/30/2011 ROUTINE VENIPUNCTURE CPT-4: 02098 08/30/2011 PRESCRIP TRANSMIT VIA ERX SY CPT-4: G8553 08/30/2011 ROCEPHIN, PER 250 MG CPT-4: J0696 08/23/2011 THER/PROPH/DIAG INJ SC/IM CPT-4: 49818 08/23/2011 URINALYSIS NONAUTO W/O SCOPE CPT-4: 57346 08/23/2011 PRESCRIP TRANSMIT VIA ERX SY CPT-4: G8553 08/23/2011 ROUTINE VENIPUNCTURE CPT-4: 91012 05/04/2011 PRESCRIP TRANSMIT VIA ERX SY CPT-4: G8553 05/04/2011 TRIAMCINOLONE ACET INJ NOS CPT-4: J3301 04/19/2011 THER/PROPH/DIAG INJ SC/IM CPT-4: 40398 04/19/2011 PRESCRIP TRANSMIT VIA ERX SY CPT-4: G8553 04/19/2011 Vital Signs Date Vital 09/03/2018 Blood Pressure 1: 134/76 Code : 8480-6 BMI: 40.0 Code : 86314-3 Heart Rate 1 : 83 bpm Height: 5'3" SpO2: 93% Weight: 226 lbs 05/29/2018 Blood Pressure 1: 126/66 Code : 8480-6 BMI: 40.2 Code : 55532-9 Heart Rate 1 : 108 bpm Height: 5'3" SpO2: 97% Weight: 227 lbs 04/25/2018 Blood Pressure 1: 122/70 Code : 8480-6 BMI: 41.3 Code : 53788-4 Heart Rate 1 : 84 bpm Height: 5'3" SpO2: 97% Waist Measure (cm): 109 cm Weight: 233 lbs 02/06/2018 Height: Weight: 01/23/2018 Blood Pressure 1: 132/68 Code : 8480-6 BMI: 40.2 Code : 10398-6 Heart Rate 1 : 74 bpm Height: 5'3" SpO2: 97% Weight: 227 lbs 09/26/2017 Blood Pressure 1: 138/84 Code : 8480-6 Heart Rate 1: 62 bpm Height: 5'3" SpO2: 96% Weight: 09/12/2017 Blood Pressure 1: 142/62 Code : 8480-6 BMI: 39.1 Code : 95903-6 Heart Rate 1 : 49 bpm Height: 5'3" SpO2: 98% Weight: 221 lbs 08/31/2017 Blood Pressure 1: 132/74 Code : 8480-6 Heart Rate 1: 79 bpm Height: 5'3" SpO2: 94% Temperature: 36.7 (C) / 98.0 (F) 08/09/2017 Blood Pressure 1: 132/82 Code : 8480-6 BMI: 39.3 Code : 19175-2 Heart Rate 1 : 85 bpm Height: 5'3" SpO2: 98% Temperature: 36.6 (C) / 97.8 (F) Weight: 222 lbs 05/07/2017 Blood Pressure 1: 118/70 Code : 8480-6 BMI: 38.8 Code : 66754-4 Heart Rate 1 : 58 bpm Height: 5'3" SpO2: 97% Weight: 219 lbs 04/12/2017 Blood Pressure 1: 140/72 Code : 8480-6 BMI: 38.9 Code : 14559-3 Heart Rate 1 : 78 bpm Height: 5'4" SpO2: 98% Waist Measure (cm): 107 cm Weight: 224 lbs 02/15/2017 Blood Pressure 1: 138/70 Code : 8480-6 Heart Rate 1: 78 bpm SpO2: 91% 02/05/2017 Blood Pressure 1: 146/74 Code : 8480-6 Heart Rate 1: 52 bpm SpO2: 95% Temperature: 36.5 (C) / 97.7 (F) 02/02/2017 Blood Pressure 1: 152/72 Code : 8480-6 BMI: 39.7 Code : 49596-3 Heart Rate 1 : 58 bpm Height: 5'3" SpO2: 95% Weight: 224 lbs 01/15/2017 Blood Pressure 1: 148/70 Code : 8480-6 Heart Rate 1: 65 bpm Height: SpO2: 96% Weight: 01/04/2017 Blood Pressure 1: 132/60 Code : 8480-6 BMI: 39.9 Code : 71922-2 Heart Rate 1 : 57 bpm Height: 5'3" SpO2: 95% Weight: 225 lbs 09/07/2016 Blood Pressure 1: 144/70 Code : 8480-6 BMI: 37.6 Code : 43392-7 Heart Rate 1 : 50 bpm Height: 5'3" SpO2: 96% Weight: 212 lbs 07/06/2016 Blood Pressure 1: 134/64 Code : 8480-6 BMI: 38.6 Code : 85345-5 Heart Rate 1 : 60 bpm Height: 5'3" SpO2: 94% Weight: 218 lbs 06/16/2016 Blood Pressure 1: 140/80 Code : 8480-6 06/08/2016 Blood Pressure 1: 150/76 Code : 8480-6 BMI: 38.4 Code : 82033-2 Heart Rate 1 : 60 bpm Height: 5'3" SpO2: 96% Weight: 217 lbs 04/17/2016 Blood Pressure 1: 150/70 Code : 8480-6 Heart Rate 1: 63 bpm SpO2: 93% 04/06/2016 Blood Pressure 1: 154/52 Code : 8480-6 BMI: 38.6 Code : 59252-1 Heart Rate 1 : 54 bpm Height: 5'3" SpO2: 95% Weight: 218 lbs 03/10/2016 Blood Pressure 1: 160/64 Code : 8480-6 03/09/2016 Blood Pressure 1: 152/78 Code : 8480-6 BMI: 38.8 Code : 29995-2 Heart Rate 1 : 63 bpm Height: 5'3" SpO2: 92% Weight: 219 lbs 01/18/2016 Blood Pressure 1: 144/72 Code : 8480-6 BMI: 39.0 Code : 87151-5 Heart Rate 1 : 68 bpm Height: 5'3" SpO2: 93% Weight: 220 lbs 09/09/2015 Blood Pressure 1: 126/68 Code : 8480-6 BMI: 39.0 Code : 42467-9 Height: 5'3" SpO2: 94% Weight: 220 lbs 12/25/2014 Blood Pressure 1: 138/68 Code : 8480-6 BMI: 37.7 Code : 10043-5 Heart Rate 1 : 68 bpm Height: 5'3" SpO2: 97% Weight: 213 lbs 10/13/2014 Blood Pressure 1: 118/68 Code : 8480-6 BMI: 39.3 Code : 52842-9 Heart Rate 1 : 54 bpm Height: 5'3" SpO2: 98% Weight: 222 lbs 08/28/2014 Blood Pressure 1: 140/62 Code : 8480-6 Heart Rate 1: 60 bpm Weight: 212 lbs 08/07/2014 Blood Pressure 1: 138/62 Code : 8480-6 05/20/2014 Temperature: 35.5 (C) / 95.9 (F) 05/07/2014 Blood Pressure 1: 148/70 Code : 8480-6 BMI: 38.6 Code : 45104-0 Heart Rate 1 : 61 bpm Height: 5'3" SpO2: 96% Weight: 218 lbs 04/16/2014 Blood Pressure 1: 142/68 Code : 8480-6 BMI: 37.6 Code : 48722-8 Heart Rate 1 : 58 bpm Height: 5'3" Weight: 212 lbs 01/27/2014 Blood Pressure 1: 122/62 Code : 8480-6 Blood Pressure 2: 118/60 Code: 8480-6 Heart Rate 1: 60 bpm Weight: 210 lbs 01/21/2014 Blood Pressure 1: 130/62 Code : 8480-6 BMI: 37.2 Code : 23463-4 Heart Rate 1 : 68 bpm Height: 5'3" SpO2: 97% Weight: 210 lbs 01/07/2014 Blood Pressure 1: 108/58 Code : 8480-6 BMI: 36.8 Code : 30682-2 Heart Rate 1 : 44 bpm Height: 5'3" Weight: 208 lbs 12/26/2013 Blood Pressure 1: 122/60 Code : 8480-6 BMI: 37.6 Code : 04506-2 Heart Rate 1 : 56 bpm Height: 5'3" Temperature: 36.9 (C) / 98.4 (F) Weight: 212 lbs 11/12/2013 Blood Pressure 1: 110/60 Code : 8480-6 Head Circumference (cm): 246 cm Heart Rate 1: 50 bpm Weight: 213 lbs 10/09/2013 Blood Pressure 1: 132/72 Code : 8480-6 Heart Rate 1: 70 bpm SpO2: 98% Temperature: 36.6 (C) / 97.9 (F) Weight: 208 lbs 04/03/2013 Blood Pressure 1: 136/72 Code : 8480-6 BMI: 36.7 Code : 20943-2 Heart Rate 1 : 76 bpm Height: 5'3" Weight: 207 lbs 01/06/2013 Blood Pressure 1: 130/70 Code : 8480-6 BMI: 36.5 Code : 90417-1 Heart Rate 1 : 72 bpm Height: 5'3" Weight: 206 lbs 11/21/2012 Blood Pressure 1: 158/70 Code : 8480-6 Heart Rate 1: 72 bpm Temperature: 36.5 (C) / 97.7 (F) Weight: 206 lbs 10/28/2012 Blood Pressure 1: 128/78 Code : 8480-6 Heart Rate 1: 68 bpm Weight: 202 lbs 09/30/2012 Blood Pressure 1: 132/66 Code : 8480-6 Heart Rate 1: 68 bpm Weight: 203 lbs 08/14/2012 Blood Pressure 1: 124/50 Code : 8480-6 Heart Rate 1: 52 bpm Temperature: 36.5 (C) / 97.7 (F) Weight: 210 lbs 08/05/2012 Blood Pressure 1: 150/80 Code : 8480-6 Blood Pressure 2: 152/84 Code: 8480-6 Heart Rate 1: 68 bpm Respiratory Rate: 20 bpm Temperature: 36.6 (C) / 97.9 (F) Weight: 210 lbs 07/15/2012 Blood Pressure 1: 138/66 Code : 8480-6 BMI: 38.3 Code : 68408-7 Heart Rate 1 : 60 bpm Height: 5'3" Weight: 216 lbs 05/27/2012 Blood Pressure 1: 134/80 Code : 8480-6 Heart Rate 1: 58 bpm Weight: 211 lbs 05/03/2012 Blood Pressure 1: 124/60 Code : 8480-6 Heart Rate 1: 80 bpm Weight: 211 lbs 8 oz 04/23/2012 Blood Pressure 1: 136/60 Code : 8480-6 Heart Rate 1: 56 bpm 03/25/2012 Blood Pressure 1: 140/62 Code : 8480-6 Heart Rate 1: 64 bpm Weight: 213 lbs 03/12/2012 Blood Pressure 1: 148/62 Code : 8480-6 Heart Rate 1: 52 bpm Weight: 215 lbs 01/23/2012 Blood Pressure 1: 140/60 Code : 8480-6 Heart Rate 1: 60 bpm Respiratory Rate : 20 bpm Weight: 219 lbs 01/12/2012 Blood Pressure 1: 130/60 Code : 8480-6 BMI: 38.3 Code : 67336-3 Heart Rate 1 : 60 bpm Height: 5'3" Weight: 216 lbs 12/25/2011 Blood Pressure 1: 142/76 Code : 8480-6 Heart Rate 1: 60 bpm Respiratory Rate : 20 bpm Weight: 213 lbs 12/04/2011 Blood Pressure 1: 142/64 Code : 8480-6 BMI: 38.6 Code : 88446-8 Heart Rate 1 : 59 bpm Height: 5'3" Respiratory Rate: 20 bpm SpO2: 96% Weight: 218 lbs 09/20/2011 Blood Pressure 1: 166/68 Code : 8480-6 BMI: 36.5 Code : 64647-2 Heart Rate 1 : 50 bpm Height: 5'3" Respiratory Rate: 16 bpm Weight: 209 lbs 8 oz 09/06/2011 Blood Pressure 1: 144/72 Code : 8480-6 Weight: 212 lbs 08/30/2011 Blood Pressure 1: 162/82 Code : 8480-6 Heart Rate 1: 60 bpm Respiratory Rate : 16 bpm Weight: 212 lbs 08/23/2011 Blood Pressure 1: 146/62 Code : 8480-6 Heart Rate 1: 68 bpm Respiratory Rate : 16 bpm Temperature: 36.7 (C) / 98.1 (F) Weight: 211 lbs 08/09/2011 Blood Pressure 1: 120/60 Code : 8480-6 BMI: 36.8 Code : 20943-7 Heart Rate 1 : 64 bpm Height: 5'3" Respiratory Rate: 16 bpm Weight: 211 lbs 05/04/2011 Blood Pressure 1: 142/58 Code : 8480-6 BMI: 38.0 Code : 79659-5 Heart Rate 1 : 56 bpm Height: 5'2" Respiratory Rate: 12 bpm Weight: 211 lbs 04/19/2011 Blood Pressure 1: 138/51 Code : 8480-6 BMI: 35.5 Code : 82400-7 Heart Rate 1 : 66 bpm Height: 5'4" Weight: 210 lbs Functional Status No Functional Status data History of Present Illness Symptom Name Status Result Effective Date Notes Quality chronic 09/03 None Quality primary hypertension 09/03/2018 None Onset and Resolution ongoing 09/03/2018 None Onset of Symptom during adulthood 09/03/2018 None Blood Pressure Values not checking blood pressure at home 09/03/2018 None Alleviating Factors medication 09/03/2018 None Pertinent Findings decreased energy 09/03/2018 None Pertinent Findings dizziness 09/03/2018 at times when she first gets up in the mornings Pertinent Findings dyspnea 09/03/2018 occasionally- wears oxygen at night Pertinent Findings edema 09/03/2018 -wears bilateral hose Quality chronic 09/03 None Onset and Resolution ongoing 09/03/2018 None Alleviating Factors medication 09/03/2018 None Onset and Resolution gradual in onset 09/03/2018 None Onset of Symptom during adulthood 09/03/2018 None Alleviating Factors medication 09/03/2018 None Exacerbating Factors diet 09/03/2018 None Location on both sides 09/03/2018 None Quality intermittent 09/03/2018 None Quality aching 2018 None Onset and Resolution ongoing 09/03/2018 None Alleviating Factors rest 09/03/2018 None Exacerbating Factors standing or walking 09/03/2018 None hypertension Quality primary hypertension 05/29/2018 None hypertension Onset and Resolution ongoing 05/29/2018 None hypertension Onset of Symptom during adulthood 05/29/2018 None hypertension Blood Pressure Values not checking blood pressure at home 05/29/2018 None hypertension Alleviating Factors medication 05/29/2018 None hypertension Pertinent Findings decreased energy 05/29/2018 None hypertension Pertinent Findings dizziness 05/29/2018 at times when she first gets up in the mornings hypertension Pertinent Findings dyspnea 05/29/2018 occasionally- wears oxygen at night hypertension Pertinent Findings edema 05/29/2018 -wears bilateral hose hypothyroid Quality chronic 05/29/2018 None hypothyroid Onset and Resolution ongoing 05/29/2018 None hypothyroid Alleviating Factors medication 05/29/2018 None hypertension Quality chronic 05/29/2018 None hyperlipidemia Onset and Resolution gradual in onset 05/29/2018 None hyperlipidemia Onset of Symptom during adulthood 05/29/2018 None hyperlipidemia Alleviating Factors medication 05/29/2018 None hyperlipidemia Exacerbating Factors diet 05/29/2018 None low back pain Location on both sides 05/29/2018 None low back pain Quality aching 05/29/2018 None low back pain Onset and Resolution ongoing 05/29/2018 None low back pain Exacerbating Factors standing or walking 05/29/2018 None low back pain Quality intermittent 05/29/2018 None low back pain Alleviating Factors rest 05/29/2018 None Annual Medicare Wellness Exam Alcohol Use drinks 0-1 days per week 04/25/2018 None Annual Medicare Wellness Exam Alcohol Use more than 5 drinks on one occasion no 04/25/2018 None Annual Medicare Wellness Exam Alcohol Use drinks 1 drinks per day 04/25/2018 None Annual Medicare Wellness Exam Aspirin Use yes 04/25/2018 None Annual Medicare Wellness Exam Blood Glucose (self reported) desireable (below 100) 04/25/2018 None Annual Medicare Wellness Exam Blood Pressure (self reported ) diagnosed with hypertension 04/25/2018 None Annual Medicare Wellness Exam Cholesterol (self reported) diagnosed with elevated cholesterol 2017 None Annual Medicare Wellness Exam Hemaglobin A-1C (self reported ) don't know 04/25/2018 None Annual Medicare Wellness Exam Hemaglobin A-1C (self reported ) never checked 04/25/2018 None Annual Medicare Wellness Exam Hours of Sleep 5-6 04/25/2018 None Annual Medicare Wellness Exam Interaction with Friends no 04/25/2018 None Annual Medicare Wellness Exam Exercise Habits exercises 5 days per week 04/25/2018 None Annual Medicare Wellness Exam Exercise Habits exercises 15 minutes per day 04/25/2018 None Annual Medicare Wellness Exam Describe Your Health fair 04/25/2018 None Annual Medicare Wellness Exam Depression (last 6 months) some of the time 04/25/2018 None Annual Medicare Wellness Exam Depression or Hopelessness some of the time 04/25/2018 None Annual Medicare Wellness Exam Interests & Pleasure almost never 04/25/2018 None Annual Medicare Wellness Exam Stress almost never 04/25/2018 None Annual Medicare Wellness Exam Handling Stress usually sheldon effectively 04/25/2018 None Annual Medicare Wellness Exam Life Satisfaction satisfied 04/25/2018 None Annual Medicare Wellness Exam Social & Emotional Support always 04/25/2018 None Annual Medicare Wellness Exam Smoking and Tobacco Use non smoker 04/25/2018 None Annual Medicare Wellness Exam Sun Exposure protects skin when outdoors: yes 04/25/2018 None Annual Medicare Wellness Exam Motor Vehicle Safety always fastens seat belt: yes 04/25/2018 None Annual Medicare Wellness Exam Motor Vehicle Safety drives after drinking: no 04/25/2018 None Annual Medicare Wellness Exam Motor Vehicle Safety rides with someone who has been drinking: no 04/25 None Annual Medicare Wellness Exam Nutrition servings of fried food / high fat foods per day: 0-1 2017 None Annual Medicare Wellness Exam Nutrition servings of high fiber / whole grain per day: 2 04/25/2018 None Annual Medicare Wellness Exam Nutrition servings of vegetables / fruit per day: 1-2 04/25/2018 None cerumen Location in both ears 02/06/2018 None cerumen Quality chronic 02/06/2018 None cerumen Quality worsening 02/06/2018 None cerumen Onset and Resolution ongoing 02/06/2018 None cerumen Pertinent Findings Denies cough 02/06/2018 None cerumen Exacerbating Factors Q-tips 02/06/2018 None hypertension Quality primary hypertension 01/23/2018 None hypertension Onset and Resolution ongoing 01/23/2018 None hypertension Onset of Symptom during adulthood 01/23/2018 None hypertension Blood Pressure Values not checking blood pressure at home 01/23/2018 None hypertension Alleviating Factors medication 01/23/2018 None hypertension Pertinent Findings dizziness 01/23/2018 at times when she first gets up in the mornings hypertension Pertinent Findings dyspnea 01/23/2018 occasionally- wears oxygen at night hypertension Pertinent Findings edema 01/23/2018 None hypothyroid Onset and Resolution ongoing 01/23/2018 None hypothyroid Alleviating Factors medication 01/23/2018 None hypothyroid Quality chronic 01/23/2018 None hypertension Pertinent Findings decreased energy 01/23/2018 None cough Quality acute None cough Quality intermittent 09/26/2017 None cough Quality productive 09/26/2017 None cough Onset and Resolution sudden in onset 09/26/2017 None cough Onset and Resolution ongoing 09/26/2017 None cough Pertinent Findings chills 09/26/2017 -states that she always feels cold cough Quality improving 09/26/2017 None cough Onset of Symptom 1.5 months ago 09/26/2017 None cough Frequency of Episodes decreasing 09/26/2017 None hypertension Quality primary hypertension 09/12/2017 None hypertension Onset and Resolution ongoing 09/12/2017 None hypertension Onset of Symptom during adulthood 09/12/2017 None hypertension Alleviating Factors medication 09/12/2017 None hypertension Pertinent Findings dizziness 09/12/2017 when she first gets up in the mornings hypertension Pertinent Findings dyspnea 09/12/2017 occasionally- wears oxygen at night hypertension Pertinent Findings edema 09/12/2017 None hypothyroid Onset and Resolution ongoing 09/12/2017 None hypothyroid Alleviating Factors medication 09/12/2017 None cough Quality acute None cough Quality intermittent 09/12/2017 None cough Onset and Resolution sudden in onset 09/12/2017 None cough Onset and Resolution ongoing 09/12/2017 None cough Onset of Symptom 1+ months ago 09/12/2017 None cough Pertinent Findings facial pain 09/12/2017 None cough Pertinent Findings chills 09/12/2017 -states that she always feels cold cough Quality productive 09/12/2017 None cough Pertinent Findings sputum production 09/12/2017 (yellow) cough Pertinent Findings post nasal drip 09/12/2017 (clear) hypertension Blood Pressure Values not checking blood pressure at home 09/12/2017 None cough Quality acute None cough Quality intermittent 08/31/2017 None cough Onset and Resolution sudden in onset 08/31/2017 None cough Onset of Symptom 4 days ago 08/31/2017 None cough Limitation on Activities does not limit activities 08/31/2017 None cough Frequency of Episodes daily 08/31/2017 None cough Triggers no known associated factors 08/31/2017 None cough Pertinent Findings chills 08/31/2017 "always" cough Pertinent Findings Denies fever 08/31/2017 None cough Pertinent Findings hoarseness 08/31/2017 None sore throat Quality acute 08/31/2017 None sore throat Onset and Resolution sudden in onset 08/31/2017 None sore throat Onset of Symptom 4 days ago 08/31/2017 None sore throat Frequency of Episodes daily 08/31/2017 None sore throat Pertinent Findings cough 08/31/2017 None sore throat Pertinent Findings Denies fever 08/31/2017 None sore throat Pertinent Findings hoarseness 08/31/2017 None cough Pertinent Findings hoarseness 08/09/2017 None cough Quality acute None cough Quality intermittent 08/09/2017 None cough Onset and Resolution sudden in onset 08/09/2017 None cough Onset of Symptom 4 days ago 08/09/2017 None cough Frequency of Episodes daily 08/09/2017 None cough Pertinent Findings chills 08/09/2017 "always" cough Pertinent Findings Denies fever 08/09/2017 None sore throat Quality acute 08/09/2017 None sore throat Onset and Resolution sudden in onset 08/09/2017 None sore throat Onset of Symptom 4 days ago 08/09/2017 None sore throat Frequency of Episodes daily 08/09/2017 None sore throat Pertinent Findings cough 08/09/2017 None sore throat Pertinent Findings Denies fever 08/09/2017 None sore throat Pertinent Findings hoarseness 08/09/2017 None cough Limitation on Activities does not limit activities 08/09/2017 None cough Triggers no known associated factors 08/09/2017 None hypertension Quality intermittent 05/07/2017 None hypertension Quality primary hypertension 05/07/2017 None hypertension Onset and Resolution ongoing 05/07/2017 None hypertension Onset of Symptom during adulthood 05/07/2017 None hypertension Alleviating Factors medication 05/07/2017 None hypertension Pertinent Findings dizziness 05/07/2017 occasioinally- in the mornings when she first wakes up hypertension Pertinent Findings dyspnea 05/07/2017 occasionally- wears oxygen at night hypertension Pertinent Findings edema 05/07/2017 None hypothyroid Onset and Resolution ongoing 05/07/2017 None hypothyroid Alleviating Factors medication 05/07/2017 None knee pain Location on the left 05/07/2017 None knee pain Quality intermittent 05/07/2017 None knee pain Onset and Resolution gradual in onset 05/07/2017 None knee pain Frequency of Episodes daily 05/07/2017 None knee pain Limitation on Activities allows weight bearing activity 05/07/2017 None knee pain Limitation on Activities moderately limits activities 05/07/2017 None knee pain Alleviating Factors non weight bearing 05/07/2017 None knee pain Alleviating Factors rest 05/07/2017 None knee pain Exacerbating Factors exertion 05/07/2017 None knee pain Exacerbating Factors weight bearing 05/07/2017 None knee pain Pertinent Findings pain with movement 05/07/2017 None hypertension Blood Pressure Values not checking blood pressure at home 05/07/2017 None fatigue Onset and Resolution ongoing 05/07/2017 None fatigue Onset of Symptom years ago 05/07/2017 None fatigue Frequency of Episodes daily 05/07/2017 None fatigue Quality chronic 05/07/2017 None Annual Medicare Wellness Exam Alcohol Use does not drink any alcohol 04/12/2017 None Annual Medicare Wellness Exam Aspirin Use yes 04/12/2017 None Annual Medicare Wellness Exam Blood Glucose (self reported) don't know 04/12/2017 None Annual Medicare Wellness Exam Blood Pressure (self reported ) low / normal (120/80) 04/12/2017 None Annual Medicare Wellness Exam Cholesterol (self reported) desireable (below 200) 04/12/2017 None Annual Medicare Wellness Exam Depression (last 6 months) some of the time 04/12/2017 None Annual Medicare Wellness Exam Depression or Hopelessness almost never 04/12/2017 None Annual Medicare Wellness Exam Describe Your Health good 04/12/2017 None Annual Medicare Wellness Exam Exercise Habits exercises 3 days per week 04/12/2017 None Annual Medicare Wellness Exam Exercise Habits exercises 30 minutes per day 04/12/2017 None Annual Medicare Wellness Exam Handling Stress usually sheldon effectively 04/12/2017 None Annual Medicare Wellness Exam Hemaglobin A-1C (self reported ) don't know 04/12/2017 None Annual Medicare Wellness Exam Hours of Sleep 6 04/12/2017 None Annual Medicare Wellness Exam Interaction with Friends yes 04/12/2017 None Annual Medicare Wellness Exam Interests & Pleasure some of the time 04/12/2017 None Annual Medicare Wellness Exam Life Satisfaction satisfied 04/12/2017 None Annual Medicare Wellness Exam Motor Vehicle Safety always fastens seat belt: y 04/12/2017 None Annual Medicare Wellness Exam Motor Vehicle Safety drives after drinking: nn 04/12/2017 None Annual Medicare Wellness Exam Motor Vehicle Safety rides with someone who has been drinking: n 2016 None Annual Medicare Wellness Exam Nutrition servings of fried food / high fat foods per day: 0 2016 None Annual Medicare Wellness Exam Nutrition servings of high fiber / whole grain per day: 1 04/12/2017 None Annual Medicare Wellness Exam Nutrition servings of vegetables / fruit per day: 2 04/12/2017 None Annual Medicare Wellness Exam Smoking and Tobacco Use non smoker 04/12/2017 None Annual Medicare Wellness Exam Social & Emotional Support always 04/12/2017 None Annual Medicare Wellness Exam Stress most of the time 04/12/2017 None Annual Medicare Wellness Exam Sun Exposure protects skin when outdoors: y 04/12/2017 None cough Location in the lung 02/05/2017 None cough Location in the throat 02/05/2017 None cough Quality acute None cough Onset and Resolution ongoing 02/05/2017 None cough Onset of Symptom 2 weeks ago 02/05/2017 None cough Limitation on Activities does not limit activities 02/05/2017 None cough Frequency of Episodes unchanged 02/05/2017 None cough Triggers known allergens 02/05/2017 None cough Pertinent Findings Denies chest discomfort 02/05/2017 None cough Pertinent Findings Denies dyspnea 02/05/2017 None cough Pertinent Findings Denies fever 02/05/2017 None cough Pertinent Findings nasal congestion 02/05/2017 None cough Location in the lung 02/02/2017 None cough Location in the throat 02/02/2017 None cough Quality acute None cough Onset and Resolution ongoing 02/02/2017 None cough Onset of Symptom 2 weeks ago 02/02/2017 None cough Limitation on Activities does not limit activities 02/02/2017 None cough Frequency of Episodes unchanged 02/02/2017 None cough Triggers known allergens 02/02/2017 None cough Pertinent Findings Denies chest discomfort 02/02/2017 None cough Pertinent Findings Denies dyspnea 02/02/2017 None cough Pertinent Findings Denies fever 02/02/2017 None cough Pertinent Findings nasal congestion 02/02/2017 None dyspepsia Quality acute 02/02/2017 None urinary frequency Quality acute 02/02/2017 None urinary frequency Onset and Resolution sudden in onset 02/02/2017 None urinary frequency Onset of Symptom 1 weeks ago 02/02/2017 None urinary frequency Pertinent Findings bladder pain 02/02/2017 None urinary frequency Pertinent Findings pelvic pain 02/02/2017 None urinary frequency Pertinent Findings urinary urgency 02/02/2017 None cough Location in the throat 01/15/2017 None cough Location in the lung 01/15/2017 None cough Quality acute None cough Onset and Resolution ongoing 01/15/2017 None cough Onset of Symptom 2 weeks ago 01/15/2017 None cough Limitation on Activities does not limit activities 01/15/2017 None cough Frequency of Episodes unchanged 01/15/2017 None cough Triggers known allergens 01/15/2017 None cough Pertinent Findings Denies chest discomfort 01/15/2017 None cough Pertinent Findings Denies dyspnea 01/15/2017 None cough Pertinent Findings Denies fever 01/15/2017 None cough Pertinent Findings nasal congestion 01/15/2017 None hypertension Quality intermittent 01/04/2017 None hypertension Onset and Resolution ongoing 01/04/2017 None hypertension Blood Pressure Values patient checking blood pressure at home - did not bring in readings 01/04/2017 None hypertension Alleviating Factors medication 01/04/2017 None hypertension Pertinent Findings dizziness 01/04/2017 occasioinally- in the mornings when she first wakes up hypertension Pertinent Findings dyspnea 01/04/2017 occasionally- wears oxygen at night hypertension Pertinent Findings edema 01/04/2017 wears bilateral knee high madi hose hypothyroid Onset and Resolution ongoing 01/04/2017 None hypothyroid Alleviating Factors medication 01/04/2017 None knee pain Location on the left 01/04/2017 None knee pain Quality worsening 01/04/2017 None knee pain Onset and Resolution gradual in onset 01/04/2017 None knee pain Quality intermittent 01/04/2017 None knee pain Frequency of Episodes daily 01/04/2017 None knee pain Limitation on Activities allows weight bearing activity 01/04/2017 None knee pain Limitation on Activities moderately limits activities 01/04/2017 None knee pain Alleviating Factors rest 01/04/2017 None knee pain Alleviating Factors non weight bearing 01/04/2017 None knee pain Exacerbating Factors exertion 01/04/2017 None knee pain Exacerbating Factors weight bearing 01/04/2017 None knee pain Pertinent Findings pain with movement 01/04/2017 None hypertension Quality primary hypertension 01/04/2017 None hypertension Onset of Symptom during adulthood 01/04/2017 None hypertension Quality intermittent 09/07/2016 None hypertension Onset and Resolution ongoing 09/07/2016 None hypertension Blood Pressure Values patient checking blood pressure at home - did not bring in readings 09/07/2016 pt reports that occasionally her lbood pressure will be in the 180's/90's - hypertension Pertinent Findings dizziness 09/07/2016 occasioinally hypertension Pertinent Findings edema 09/07/2016 wears bilateral knee high madi hose hypertension Alleviating Factors medication 09/07/2016 None hypothyroid Onset and Resolution ongoing 09/07/2016 None hypothyroid Alleviating Factors medication 09/07/2016 None hypertension Pertinent Findings dyspnea 09/07/2016 occasionally- wears oxygen at night gait abnormality Quality unsteady 09/07/2016 None gait abnormality Onset and Resolution ongoing 09/07/2016 None hypertension Quality intermittent 07/06/2016 None hypertension Onset and Resolution ongoing 07/06/2016 None hypertension Blood Pressure Values patient checking blood pressure at home - did not bring in readings 07/06/2016 None hypertension Pertinent Findings Denies dizziness 07/06/2016 None hypertension Pertinent Findings edema 07/06/2016 None hypertension Quality chronic 06/08/2016 None hypertension Onset and Resolution ongoing 06/08/2016 None hypertension Onset of Symptom during adulthood 06/08/2016 None hypertension Severity not consistently severe symptoms, the symptoms fluctuate from no symptoms to anxiety and headaches 06/08/2016 None hypertension Pertinent Findings Denies dizziness 06/08/2016 None hypertension Pertinent Findings dyspnea 06/08/2016 with activity or anxiousness hypertension Pertinent Findings edema 06/08/2016 -wearing knee high compression hose joint complaint Location on both knees 06/08/2016 None joint complaint Quality chronic 06/08/2016 None joint complaint Onset and Resolution ongoing 06/08/2016 None joint complaint Onset of Symptom years ago 06/08/2016 None joint complaint Limitation on Activities moderately limits activities 06/08/2016 None joint complaint Frequency of Episodes increasing 06/08/2016 None joint complaint Significant Medications NSAIDs 06/08/2016 None joint complaint Triggers no known associated factors 06/08/2016 None joint complaint Alleviating Factors medication 06/08/2016 None hypothyroid Quality chronic 06/08/2016 None hypothyroid Onset and Resolution ongoing 06/08/2016 None hypothyroid Onset of Symptom during adulthood 06/08/2016 None hypothyroid Alleviating Factors medication 06/08/2016 None hypertension Quality intermittent 06/08/2016 None hypertension Blood Pressure Values pt checking blood pressure - see scanned document 06/08/2016 170/70'S - BLOOD PRESSURE HAS BEEN WORSE SINCE HER MEDICATIONS WERE CHANGED DUE TO INSURANCE NOT COVERING HER MEDICATION. hypertension Alleviating Factors medication 06/08/2016 None gait abnormality Quality unsteady 06/08/2016 None gait abnormality Onset and Resolution ongoing 06/08/2016 None gait abnormality Assistive devices cane 06/08/2016 None abdominal pain Location in the RLQ 06/08/2016 None abdominal pain Radiating the back 06/08/2016 None abdominal pain Quality intermittent 06/08/2016 None abdominal pain Onset and Resolution ongoing 06/08/2016 None abdominal pain Onset of Symptom years ago 06/08/2016 None abdominal pain Timing of Episodes in the morning 06/08/2016 None abdominal pain Triggers no known associated factors 06/08/2016 None hypertension Quality intermittent 04/17/2016 None hypertension Onset and Resolution ongoing 04/17/2016 None hypertension Blood Pressure Values patient checking blood pressure at home - did not bring in readings 04/17/2016 None hypertension Pertinent Findings Denies dizziness 04/17/2016 None hypertension Pertinent Findings edema 04/17/2016 None hypertension Quality chronic 04/06/2016 None hypertension Onset and Resolution ongoing 04/06/2016 None hypertension Onset of Symptom during adulthood 04/06/2016 None hypertension Blood Pressure Values not checking blood pressure at home 04/06/2016 None hypertension Severity not consistently severe symptoms, the symptoms fluctuate from no symptoms to anxiety and headaches 04/06/2016 None hypertension Frequency of Episodes unchanged 04/06/2016 None hypertension Pertinent Findings Denies dizziness 04/06/2016 None hypertension Pertinent Findings dyspnea 04/06/2016 with activity hypertension Pertinent Findings edema 04/06/2016 None joint complaint Location on both knees 04/06/2016 None joint complaint Quality chronic 04/06/2016 None joint complaint Onset and Resolution ongoing 04/06/2016 None joint complaint Onset of Symptom years ago 04/06/2016 None joint complaint Limitation on Activities moderately limits activities 04/06/2016 None joint complaint Frequency of Episodes increasing 04/06/2016 None joint complaint Significant Medications NSAIDs 04/06/2016 None joint complaint Triggers no known associated factors 04/06/2016 None joint complaint Alleviating Factors medication 04/06/2016 None hypothyroid Quality chronic 04/06/2016 None hypothyroid Onset and Resolution ongoing 04/06/2016 None hypothyroid Onset of Symptom during adulthood 04/06/2016 None hypothyroid Severity mild with subclinical signs 04/06/2016 None hypothyroid Frequency of Episodes unchanged 04/06/2016 None hypothyroid Alleviating Factors medication 04/06/2016 None hypertension Quality chronic 03/09/2016 None hypertension Onset and Resolution ongoing 03/09/2016 None hypertension Onset of Symptom during adulthood 03/09/2016 None hypertension Blood Pressure Values not checking blood pressure at home 03/09/2016 None hypertension Pertinent Findings Denies dizziness 03/09/2016 None hypertension Pertinent Findings dyspnea 03/09/2016 with activity hypertension Pertinent Findings edema 03/09/2016 None joint complaint Location on both knees 03/09/2016 None joint complaint Quality chronic 03/09/2016 None joint complaint Onset and Resolution ongoing 03/09/2016 None joint complaint Onset of Symptom years ago 03/09/2016 None joint complaint Limitation on Activities moderately limits activities 03/09/2016 None joint complaint Frequency of Episodes increasing 03/09/2016 None joint complaint Significant Medications NSAIDs 03/09/2016 None joint complaint Triggers no known associated factors 03/09/2016 None joint complaint Alleviating Factors medication 03/09/2016 None hypothyroid Quality chronic 03/09/2016 None hypothyroid Onset and Resolution ongoing 03/09/2016 None hypothyroid Onset of Symptom during adulthood 03/09/2016 None hypothyroid Severity mild with subclinical signs 03/09/2016 None hypothyroid Frequency of Episodes unchanged 03/09/2016 None hypothyroid Alleviating Factors medication 03/09/2016 None hypertension Severity not consistently severe symptoms, the symptoms fluctuate from no symptoms to anxiety and headaches 03/09/2016 None hypertension Frequency of Episodes unchanged 03/09/2016 None hypertension Quality chronic 01/18/2016 None hypertension Onset and Resolution ongoing 01/18/2016 None hypertension Onset of Symptom during adulthood 01/18/2016 None hypertension Blood Pressure Values not checking blood pressure at home 01/18/2016 None hypertension Pertinent Findings Denies dizziness 01/18/2016 None hypertension Pertinent Findings dyspnea 01/18/2016 with activity hypertension Pertinent Findings edema 01/18/2016 None joint complaint Location on both knees 01/18/2016 None joint complaint Quality chronic 01/18/2016 None joint complaint Onset and Resolution ongoing 01/18/2016 None joint complaint Onset of Symptom years ago 01/18/2016 None joint complaint Limitation on Activities moderately limits activities 01/18/2016 None joint complaint Frequency of Episodes increasing 01/18/2016 None joint complaint Significant Medications NSAIDs 01/18/2016 None joint complaint Triggers no known associated factors 01/18/2016 None joint complaint Alleviating Factors medication 01/18/2016 None hypothyroid Quality chronic 01/18/2016 None hypothyroid Onset and Resolution ongoing 01/18/2016 None hypothyroid Onset of Symptom during adulthood 01/18/2016 None hypothyroid Severity mild with subclinical signs 01/18/2016 None hypothyroid Frequency of Episodes unchanged 01/18/2016 None hypothyroid Alleviating Factors medication 01/18/2016 None hypertension Quality chronic 09/09/2015 None hypertension Onset and Resolution ongoing 09/09/2015 None hypertension Onset of Symptom during adulthood 09/09/2015 None hypertension Blood Pressure Values not checking blood pressure at home 09/09/2015 None hypertension Pertinent Findings Denies anxiety 09/09/2015 None hypertension Pertinent Findings Denies dizziness 09/09/2015 None hypertension Pertinent Findings dyspnea 09/09/2015 with activity hypertension Pertinent Findings edema 09/09/2015 None joint complaint Quality chronic 09/09/2015 None joint complaint Onset and Resolution ongoing 09/09/2015 None joint complaint Onset of Symptom _ years ago 09/09/2015 None joint complaint Limitation on Activities moderately limits activities 09/09/2015 None joint complaint Frequency of Episodes increasing 09/09/2015 None joint complaint Significant Medications NSAIDs 09/09/2015 None joint complaint Triggers no known associated factors 09/09/2015 None joint complaint Alleviating Factors medication 09/09/2015 None joint complaint Location on both knees 09/09/2015 right hurts all the time. Left hurts but not constantly hypothyroid Quality chronic 09/09/2015 None hypothyroid Onset and Resolution ongoing 09/09/2015 None hypothyroid Onset of Symptom during adulthood 09/09/2015 None hypothyroid Severity mild with subclinical signs 09/09/2015 None hypothyroid Frequency of Episodes unchanged 09/09/2015 None hypertension Quality chronic 12/25/2014 None hypertension Onset and Resolution ongoing 12/25/2014 None hypertension Onset of Symptom during adulthood 12/25/2014 None hypertension Blood Pressure Values not checking blood pressure at home 12/25/2014 None hypertension Pertinent Findings Denies anxiety 12/25/2014 None hypertension Pertinent Findings edema 12/25/2014 None hypertension Pertinent Findings Denies dizziness 12/25/2014 None hypertension Pertinent Findings dyspnea 12/25/2014 with activity hypertension Quality chronic 10/13/2014 None hypertension Onset and Resolution ongoing 10/13/2014 None hypertension Onset of Symptom during adulthood 10/13/2014 None hypertension Blood Pressure Values not checking blood pressure at home 10/13/2014 None hypertension Pertinent Findings Denies anxiety 10/13/2014 None hypertension Quality chronic 08/28/2014 None hypertension Onset and Resolution ongoing 08/28/2014 None hypertension Onset of Symptom during adulthood 08/28/2014 None hypertension Blood Pressure Values not checking blood pressure at home 08/28/2014 None hypertension Pertinent Findings Denies anxiety 08/28/2014 None headache Location in the right occipital area 08/28/2014 None headache Quality aching 08/28/2014 says she has a pounding in her ear which is her heart beat arrhythmia Quality irregular beats 08/28/2014 None arrhythmia Onset and Resolution ongoing 08/28/2014 Says that the Toprol helped this but made her pulse too low arrhythmia Pertinent Findings dizziness 08/28/2014 None arrhythmia Pertinent Findings dyspnea 08/28/2014 None dyspnea Onset and Resolution ongoing 05/07/2014 None dyspnea Quality chronic 05/07/2014 waking up at night, wearing oxgyen but questions needing an overnight oxygen study cough Location in the lung 05/07/2014 None cough Quality acute None cough Onset and Resolution ongoing 05/07/2014 None cough Onset of Symptom 2-3 days ago 05/07/2014 None cough Limitation on Activities does not limit activities 05/07/2014 None cough Frequency of Episodes increasing 05/07/2014 None cough Triggers known allergens 05/07/2014 None cough Alleviating Factors OTC medications 05/07/2014 None cough Pertinent Findings dyspnea 05/07/2014 None cough Pertinent Findings Denies fever 05/07/2014 None cough Pertinent Findings Denies ill contacts 05/07/2014 None cough Pertinent Findings Denies tachypnea 05/07/2014 None cough Pertinent Findings sputum production 05/07/2014 None cough Significant Medical Conditions pulmonary disease 05/07/2014 None hypertension Quality chronic 04/16/2014 None hypertension Onset and Resolution ongoing 04/16/2014 None hypertension Onset of Symptom during adulthood 04/16/2014 None hypertension Pertinent Findings Denies anxiety 04/16/2014 None hypertension Blood Pressure Values not checking blood pressure at home 04/16/2014 None skin lesion Onset and Resolution ongoing 01/27/2014 None skin lesion Onset of Symptom during adulthood 01/27/2014 None skin lesion Quality acute 01/27/2014 irritated lesion right shoulder blade and left forearm skin lesion Severity mild 01/27/2014 None skin lesion Frequency of Episodes increasing 01/27/2014 None skin lesion Triggers no known associated factors 01/27/2014 None fatigue Quality chronic 01/21/2014 None hypertension Quality chronic 01/21/2014 None hypertension Onset and Resolution ongoing 01/21/2014 None hypertension Blood Pressure Values pt checking blood pressure - see scanned document 01/21/2014 None fatigue Onset and Resolution ongoing 01/21/2014 states she is not sleeping well. needs order to cont oxygen mole check Color brown 01/21/2014 None mole check Changing Moles becoming thicker 01/21/2014 None mole check Location-Trunk on the right upper back 01/21/2014 None cerumen Location in both ears 01/21/2014 None fatigue Pertinent Findings Denies back pain 01/21/2014 None fatigue Pertinent Findings Denies cough 01/21/2014 None fatigue Pertinent Findings Denies dizziness 01/21/2014 None hypertension Onset of Symptom during adulthood 01/21/2014 None hypertension Pertinent Findings Denies anxiety 01/21/2014 None wrist pain Location on the right 01/07/2014 None wrist pain Pertinent Findings pain with movement 01/07/2014 None wrist pain Pertinent Findings Denies numbness 01/07/2014 None wrist pain Pertinent Findings Denies decreased range of motion 01/07/2014 None wrist pain Pertinent Findings swelling 01/07/2014 None wrist pain Pertinent Findings Denies stiffness 01/07/2014 None wrist pain Quality chronic 01/07/2014 None wrist pain Severity moderate 01/07/2014 None sinus congestion Pertinent Findings cough 12/26/2013 None sinus congestion Pertinent Findings Denies decreased energy level 12/26/2013 None sinus congestion Pertinent Findings Denies fever 12/26/2013 None cough Location in the throat 12/26/2013 None cough Pertinent Findings Denies fever 12/26/2013 None cough Pertinent Findings Denies dyspnea 12/26/2013 None sinus congestion Onset and Resolution ongoing 12/26/2013 None cough Quality acute None cough Onset and Resolution ongoing 12/26/2013 None cough Limitation on Activities does not limit activities 12/26/2013 None cough Frequency of Episodes increasing 12/26/2013 None cough Triggers no known associated factors 12/26/2013 None cough Pertinent Findings Denies ill contacts 12/26/2013 None cough Pertinent Findings hoarseness 12/26/2013 None cough Pertinent Findings nasal congestion 12/26/2013 None cough Pertinent Findings purulent sputum 12/26/2013 green cough Onset of Symptom 5 days ago 12/26/2013 None sinus congestion Onset of Symptom 5 days ago 12/26/2013 None sinus congestion Severity moderate 12/26/2013 None sinus congestion Frequency of Episodes increasing 12/26/2013 None sinus congestion Significant Medical Conditions allergic rhinitis 12/26/2013 None sinus congestion Triggers no known associated factors 12/26/2013 None sinus congestion Location on both sides 12/26/2013 None sinus congestion Quality acute 12/26/2013 None sinus congestion Alleviating Factors medication 12/26/2013 mucinex and robitussin sore throat Pertinent Findings nasal congestion 11/12/2013 None sore throat Location diffusely 11/12/2013 None sore throat Quality acute 11/12/2013 None sore throat Onset and Resolution ongoing 11/12/2013 None sore throat Onset of Symptom 2 weeks ago 11/12/2013 None sore throat Limitation on Activities does not limit oral intake 11/12/2013 None sore throat Triggers allergens 11/12/2013 None sore throat Pertinent Findings Denies fever 11/12/2013 None sore throat Pertinent Findings Denies facial pain 11/12/2013 None sore throat Pertinent Findings cough 10/09/2013 None sore throat Onset of Symptom 1 months ago 10/09/2013 None sore throat Location on both sides 10/09/2013 None sore throat Quality acute 10/09/2013 None sore throat Onset and Resolution ongoing 10/09/2013 None sore throat Limitation on Activities does not limit oral intake 10/09/2013 None sore throat Frequency of Episodes increasing 10/09/2013 None sore throat Significant Medical Conditions allergic rhinitis 10/09/2013 None sore throat Triggers no known associated factors 10/09/2013 None sore throat Pertinent Findings Denies decreased energy level 10/09/2013 None sore throat Pertinent Findings Denies fever 10/09/2013 None sore throat Pertinent Findings facial pain 10/09/2013 None sore throat Pertinent Findings nasal congestion 10/09/2013 None sore throat Pertinent Findings Denies ill contacts 10/09/2013 None sore throat Pertinent Findings Denies lymphadenopathy 10/09/2013 None sinus congestion Onset and Resolution ongoing 10/09/2013 None sinus congestion Onset of Symptom 3 weeks ago 10/09/2013 None sinus congestion Severity moderate 10/09/2013 None sinus congestion Frequency of Episodes increasing 10/09/2013 None sinus congestion Severity mild 10/09/2013 None sinus congestion Timing of Episodes all day long 10/09/2013 None sinus congestion Triggers no known associated factors 10/09/2013 None sinus congestion Pertinent Findings Denies cough 10/09/2013 None sinus congestion Pertinent Findings Denies decreased energy level 10/09/2013 None sinus congestion Pertinent Findings facial pain 10/09/2013 None sinus congestion Pertinent Findings Denies fever 10/09/2013 None sinus congestion Pertinent Findings Denies vomiting 10/09/2013 None hypertension Quality chronic 04/03/2013 None hypertension Quality stable 04/03/2013 None hypertension Onset and Resolution ongoing 04/03/2013 None hypertension Pertinent Findings Denies decreased energy 04/03/2013 None hypertension Alleviating Factors medication 04/03/2013 None hypertension Exacerbating Factors stress 04/03/2013 None hypertension Blood Pressure Values patient checking blood pressure at home - did not bring in readings 04/03/2013 None hypertension Severity mild 04/03/2013 None hypertension Significant Family History hypertension 04/03/2013 None edema Quality chronic 01/06/2013 None edema Quality pitting 01/06/2013 None edema Onset and Resolution ongoing 01/06/2013 None edema Location on the right ankle 01/06/2013 None edema Location on the left ankle 01/06/2013 None edema Alleviating Factors medication 01/06/2013 None edema Pertinent Findings Denies limb pain / tenderness 01/06/2013 None edema Pertinent Findings Denies limb redness 01/06/2013 None edema Pertinent Findings Denies palpitations 01/06/2013 None edema Pertinent Findings Denies tachycardia 01/06/2013 None edema Pertinent Findings Denies dyspnea 01/06/2013 None hypertension Quality improving 01/06/2013 None hypertension Blood Pressure Values not checking blood pressure at home 01/06/2013 None hypertension Onset and Resolution ongoing 01/06/2013 None hypertension Pertinent Findings Denies tachycardia 01/06/2013 None hypertension Pertinent Findings Denies dyspnea 01/06/2013 None hypertension Pertinent Findings edema 01/06/2013 None hypertension Pertinent Findings Denies palpitations 01/06/2013 None hypertension Pertinent Findings Denies orthostatic hypotension 01/06/2013 None hypertension Pertinent Findings Denies lethargy 01/06/2013 None hypertension Triggers stress 01/06/2013 None hypertension Alleviating Factors medication 01/06/2013 None hypertension Exacerbating Factors stress 01/06/2013 None hypertension Exacerbating Factors change in dietary habits 01/06/2013 None cough Location in the throat 11/21/2012 None cough Quality interrupts sleep 11/21/2012 None cough Quality productive 11/21/2012 clear cough Pertinent Findings hoarseness 11/21/2012 states she was working with some dirt and sweeping and stirring up dust and now sick cough Onset and Resolution ongoing 11/21/2012 None cough Onset of Symptom 11/2 weeks ago 11/21/2012 None cough Limitation on Activities does not limit activities 11/21/2012 None cough Frequency of Episodes increasing 11/21/2012 None cough Significant Medications albuterol 11/21/2012 took a puff of her inhaler a few days ago. cough Triggers known allergens 11/21/2012 None cough Significant Medical Conditions pulmonary disease 11/21/2012 None hypertension Quality chronic 10/28/2012 None hypertension Onset and Resolution ongoing 10/28/2012 None hypertension Blood Pressure Values not checking blood pressure at home 10/28/2012 None hypertension Onset of Symptom during adulthood 10/28/2012 None hypertension Blood Pressure Values patient checking blood pressure at home - did not bring in readings 10/28/2012 None hypertension Severity mild 10/28/2012 None hypertension Triggers stress 10/28/2012 None hypertension Alleviating Factors medication 10/28/2012 None hypertension Pertinent Findings Denies anxiety 10/28/2012 None hypertension Pertinent Findings Denies decreased energy 10/28/2012 None edema Quality chronic 10/28/2012 None edema Quality pitting 10/28/2012 None edema Onset and Resolution ongoing 10/28/2012 None edema Location on both legs 10/28/2012 None edema Triggers prolonged sitting 10/28/2012 None edema Alleviating Factors medication 10/28/2012 None edema Alleviating Factors recumbency 10/28/2012 None edema Exacerbating Factors salty foods 10/28/2012 None edema Exacerbating Factors standing 10/28/2012 None hypertension Quality chronic 09/30/2012 None edema Quality chronic 09/30/2012 None edema Quality pitting 09/30/2012 None edema Onset and Resolution ongoing 09/30/2012 None edema Location on both legs 09/30/2012 None hypertension Onset and Resolution ongoing 09/30/2012 None hypertension Onset of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 SINUSITIS[ICD9: 461.9] Diagnosis: Urinary tract infection[ICD9: 599.0] Diagnosis: Nocturnal hypoxia[ICD9: 799.02] Chaparrita Flanagan MD [facility] CPT-4: 83575 05/07/2014 ([id number]) 77666 EST. PATIENT, LEVEL IV Diagnosis: ESSENTIAL HYPERTENSION[ICD9: 401.9] Diagnosis: HYPERLIPIDEMIA[ICD9: 272.4] Diagnosis: JOINT PAIN-L/LEG[ICD9: 719.46] Concepción Flanagan MD [facility] CPT- 4: 73048 04/16/2014 ([id number]) 65156 EST. PATIENT, LEVEL IV Diagnosis: ESSENTIAL HYPERTENSION[SNOMED: 92724042] Diagnosis: HYPERLIPIDEMIA[ICD9: 272.4] Diagnosis: HYPOTHYROIDISM[ICD9: 244.9] Diagnosis: Nocturnal hypoxaemia[ICD9: 799.02] Concepción Flanagan MD [facility] CPT-4: 77058 01/21/2014 ([id number]) 16127 EST. PATIENT, LEVEL III Diagnosis: ESSENTIAL HYPERTENSION[SNOMED: 72626760] Diagnosis: Bradycardia[ICD9: 427.89] Concepción Flanagan MD [facility] CPT-4: 07028 01/07/2014 ([id number]) 84566 EST. PATIENT, LEVEL III Diagnosis: ACUTE URI[ICD9: 465.9] Diagnosis: COUGH[ICD9: 786.2] Chaparrita Flanagan MD [facility] CPT-4: 18997 12/26/2013 ([id number]) 42244 EST. PATIENT, LEVEL III Diagnosis: ALLERGIC RHINITIS[ICD9: 477.9] Diagnosis: HYPERLIPIDEMIA[ICD9: 272.4] Diagnosis: ESSENTIAL HYPERTENSION[SNOMED: 55209580] Diagnosis: ENCNTR LONG-RX USE NEC[ICD9: V58.69] Diagnosis: Laboratory exam ordered as part of routine general medical examination[ICD9: V72.62] Diagnosis: HYPOTHYROIDISM[ICD9: 244.9] Chaparrita Flanagan MD [facility] CPT-4: 88071 11/12/2013 ([id number]) 32242 EST. PATIENT, LEVEL III Diagnosis: Acute maxillary sinusitis[ICD9: 461.0] Chaparrita Flanagan MD [facility] CPT-4: 11304 10/09/2013 ([id number]) 91497 EST. PATIENT, LEVEL III Diagnosis: ESSENTIAL HYPERTENSION[SNOMED: 69610692] Diagnosis: DYSURIA[ICD9: 788.1] Concepción Flanagan MD [facility] CPT-4: 10680 04/03/2013 ([id number]) 45200 EST. PATIENT, LEVEL III Diagnosis: ESSENTIAL HYPERTENSION[SNOMED: 25386688] Diagnosis: EDEMA[ICD9: 782.3] Concepción Flanagan MD [facility] CPT-4: 35531 01/06/2013 ([id number]) 55463 EST. PATIENT, LEVEL III Diagnosis: UNSPECIFIED ASTHMA[ICD9: 493.90] Diagnosis: Cough[ICD9: 786.2] Diagnosis: ALLERGIC RHINITIS[ICD9: 477.9] Concepción Flanagan MD [facility] CPT- 4: 38292 11/21/2012 ([id number]) 46665 EST. PATIENT, LEVEL IV Diagnosis: ESSENTIAL HYPERTENSION[SNOMED: 02120069] Diagnosis: EDEMA[ICD9: 782.3] Concepción Flanagan MD [facility] CPT-4: 39514 10/28/2012 ([id number]) 52681 EST. PATIENT, LEVEL IV Diagnosis: ESSENTIAL HYPERTENSION[SNOMED: 36083977] Diagnosis: EDEMA[ICD9: 782.3] Diagnosis: Knee pain, right[ICD9: 719.46] Diagnosis: Urge incontinence[ICD9: 788.31] Concecpión Flanagan MD [facility] CPT- 4: 64909 09/30/2012 ([id number]) 68269 EST. PATIENT, LEVEL III Diagnosis: ESSENTIAL HYPERTENSION[SNOMED: 50666632] Concepción Flanagan MD [facility] CPT-4: 16822 08/14/2012 ([id number]) 69392 EST. PATIENT, LEVEL III Diagnosis: CELLULITIS OF LEG[ICD9: 682.6] Concepción Flanagan MD [facility] CPT- 4: 68043 08/05/2012 ([id number]) 62359 EST. PATIENT, LEVEL IV Diagnosis: ESSENTIAL HYPERTENSION[SNOMED: 84464974] Diagnosis: EDEMA[ICD9: 782.3] Diagnosis: Constipation[ICD9: 564.00] Concepción Flanagan MD [facility] CPT- 4: 19547 07/15/2012 ([id number]) 28736 EST. PATIENT, LEVEL III Diagnosis: Subungual contusion of toenail[ICD9: 924.3] Concepción Flanagan MD [facility] CPT-4: 27269 05/27/2012 Postop follow up visit related to original px Diagnosis: BENIGN ERLINDA SKIN ARM[ICD9: 216.6] Diagnosis: BENIGN ERLINDA SKIN TRUNK[ICD9: 216.5] Concepción Flanagan MD [facility] CPT-4: 89196 05/03/2012 ([id number]) 40410 EST. PATIENT, LEVEL IV Diagnosis: ESSENTIAL HYPERTENSION[SNOMED: 21429350] Diagnosis: OA (osteoarthritis) of knee[ICD9: 715.96] Diagnosis: EDEMA[ICD9: 782.3] Concepción Flanagan MD [facility] CPT-4: 08570 03/25/2012 60279 EST. PATIENT, LEVEL IV Diagnosis: ESSENTIAL HYPERTENSION[SNOMED: 60751256] Diagnosis: Abdominal bloating[ICD9: 787.3] Concepción Flanagan MD [facility] CPT- 4: 04340 03/12/2012 ([id number]) 10771 EST. PATIENT, LEVEL IV Diagnosis: ESSENTIAL HYPERTENSION[SNOMED: 63493089] Diagnosis: EDEMA[ICD9: 782.3] Concepción Flanagan MD [facility] CPT-4: 80420 01/23/2012 ([id number]) 77758 EST. PATIENT, LEVEL III Diagnosis: Breast pain, left[ICD9: 611.71] Chaparrita Flanagan MD [facility] CPT-4: 08783 01/12/2012 ([id number]) 70772 EST. PATIENT, LEVEL IV Diagnosis: ESSENTIAL HYPERTENSION[SNOMED: 68978966] Diagnosis: DEPRESSIVE DISORDER NEC[ICD9: 311] Diagnosis: ANXIETY STATE[ICD9: 300.00] Concepción Flanagan MD, [facility] CPT- 4: 67558 12/25/2011 ([id number]) 73725 EST. PATIENT, LEVEL IV Diagnosis: ESSENTIAL HYPERTENSION[SNOMED: 55143885] Diagnosis: EDEMA[ICD9: 782.3] Concepción Flanagan MD, [facility] CPT-4: 71448 12/04/2011 ([id number]) 36540 EST. PATIENT, LEVEL IV Diagnosis: ESSENTIAL HYPERTENSION[SNOMED: 95307448] Diagnosis: DEPRESSIVE DISORDER NEC[ICD9: 311] Concepción Flanagan MD, [facility] CPT-4: 85486 09/20/2011 77583 EST. PATIENT, LEVEL IV Diagnosis: Dysuria[ICD9: 788.1] Diagnosis: ESSENTIAL HYPERTENSION[SNOMED: 90304633] Diagnosis: Anxiety[ICD9: 300.00] Concepción Flanagan MD, [facility] CPT-4: 39133 09/06/2011 ([id number]) 46230 EST. PATIENT, LEVEL IV Diagnosis: LUMBAGO[ICD9: 724.2] Diagnosis: ESSENTIAL HYPERTENSION[SNOMED: 60667699] Concepción Flanagan MD, [facility] CPT-4: 47227 08/30/2011 12540 EST. PATIENT, LEVEL III Diagnosis: ACUTE SINUSITIS[ICD9: 461.9] Diagnosis: Urinary frequency[ICD9: 788.41] Chaparrita Flanagan MD, [facility] CPT-4: 29141 08/23/2011 50174 EST. PATIENT, LEVEL III Diagnosis: Lesion of labia[ICD9: 624.8] Chaparrita Flanagan MD, [facility] CPT-4: 16224 08/09/2011 18880 EST. PATIENT, LEVEL IV Diagnosis: HYPOTHYROIDISM[ICD9: 244.9] Diagnosis: HYPERLIPIDEMIA[ICD9: 272.4] Diagnosis: BP (high blood pressure)[SNOMED: 84098128] Diagnosis: Knee pain, bilateral[ICD9: 719.46] Diagnosis: ESOPHAGEAL REFLUX[ICD9: 530.81] [facility] CPT- 4: 86143 05/04/2011 12151 EST. PATIENT, LEVEL III Diagnosis: ACUTE URI[ICD9: 465.9] Diagnosis: Asthma[ICD9: 493.90] Diagnosis: Esophageal reflux[ICD9: 530.81] Chaparrita Arrieta [facility] CPT-4: 90109 04/19/2011 Plan of Care Planned Activity Notes Codes Status Date Patient Education: Patient Medication Summary Completed 10/08/2018 Visit Plan: Hypertension - well controlled - continue with current medications, continue with no added salt diet. Pt has been encouraged to exercise daily. The pt has been advised to call the office if there are any acute concerns about change in blood pressure readings at home. Hyperlipidemia - pt has been counseled about appropriate diet, exercise, and need for low fat food choices. I have discussed the need for the patient to take medications as prescribed. If the patient has negative side effects from the medication, they are to CALL the office and not abruptly discontinue the medication without discussion with a practitioner in the office. We will check labs in 3-6 months for follow up on the patient's chronic medical problem and to assure normal liver response to medications. Hypothyroidism - pt with chronic hypothyroidism, continue with current medication, will monitor pt to signs or symptoms of lack of adequate supplementation. Pt is to continue with current dose of medication unless directed otherwise. Check labs at regular intervals q 3 months or q 6 months based on previous levels of control. Chronic low back pain - supportive care at this time. 09/03/2018 Appointment: Concepción Flanagan WPtel: [address] [place], [place] [id number] (15 min) Moderate 09/03/2018 Patient Education: Patient Medication Summary Completed 09/03/2018 Patient Education: Back Pain Completed 09/03/2018 Referral: External, Ordering Provider Patient informed. Completed 06/18/2018 Visit Plan: Hypertension - well controlled - continue with current medications, continue with no added salt diet. Pt has been encouraged to exercise daily. The pt has been advised to call the office if there are any acute concerns about change in blood pressure readings at home. Hypothyroidism - pt with chronic hypothyroidism, continue with current medication, will monitor pt to signs or symptoms of lack of adequate supplementation. Pt is to continue with current dose of medication unless directed otherwise. Check labs at regular intervals wither q 3 months or q 6 months based on previous levels of control. Hyperlipidemia - pt has been counseled about appropriate diet, exercise, and need for low fat food choices. I have discussed the need for the patient to take medications as prescribed. If the patient has negative side effects from the medication, they are to CALL the office and not abruptly discontinue the medication without discussion with a practitioner in the office. We will check labs in 3-6 months for follow up on the patient's chronic medical problem and to assure normal liver response to medications. Knee pain - RX for voltaren gel - dry needling with surya randall for knees and back. 05/29/2018 Appointment: Concepción Flanagan WPtel: [facility] (15 min) Moderate 05/29/2018 Patient Education: Patient Medication Summary Completed 05/29/2018 Care Plan: Referral Order SNOMED-CT : [id number] Pending 05/29/2018 Visit Plan: Wound Instructions - Pt was instructed to keep the wound clean, call if redness, pustular drainage, or any other acute concerns. 04/30/2018 Appointment: Nurse Visit 04/30/2018 Patient Education: Patient Medication Summary Completed 04/30/2018 Visit Plan: Medicare Exam - today we discussed the patients past history, immunizations, preventative exams/evaluations - colonoscopy, fecal occult blood testing, routine labs for renal function, glucose, cholesterol, osteoporosis evaluations, cardiovascular testing and cancer screenings. We have also discussed mental health and the signs/symptoms of depression. The patient was advised of home safety evaluations and the need to make sure that as the aging process continues, we need to be aware of different ways to make the home a safer place to reside. The patient has also been counseled that exercise is necessary - and of utmost importance as we age to help decrease fall risk and to maintain independence in the home. Today we discussed the need for the patient to create paperwork for Advanced directives as well as for the patient to provide this office with a copy of her DOPA paperwork for health care surrogate. Wound Instructions - Pt was instructed to keep the wound clean, use silvadene cream as directed and call with any concerns or s/s of infection. Patient and verbalized understanding of plan. 04/25/2018 Patient Education: Patient Medication Summary Completed 04/25/2018 Visit Plan: Cerumen Impaction - The impacted cerumen was removed with the use of the ear currette. The patient tolerated the procedure without incident and had improvement in hearing. The wax was removed by the practitioner due to the wax being more complicated to remove, and staff was needed to assist the removal of the wax by holding the ear, and keeping patient stabilized during the removal process. 02/06/2018 Appointment: Hayley London WPtel: [phone] [facility] (15 min) Moderate 02/06/2018 Patient Education: Patient Medication Summary Completed 02/06/2018 Visit Plan: Hypertension - well controlled - continue with current medications, continue with no added salt diet. Pt has been encouraged to exercise daily. The pt has been advised to call the office if there are any acute concerns about change in blood pressure readings at home. Hypothyroidism - pt with chronic hypothyroidism, continue with current medication, will monitor pt to signs or symptoms of lack of adequate supplementation. Pt is to continue with current dose of medication unless directed otherwise. Check labs at regular intervals wither q 3 months or q 6 months based on previous levels of control. Hyperlipidemia - pt has been counseled about appropriate diet, exercise, and need for low fat food choices. I have discussed the need for the patient to take medications as prescribed. If the patient has negative side effects from the medication, they are to CALL the office and not abruptly discontinue the medication without discussion with a practitioner in the office. We will check labs in 3-6 months for follow up on the patient's chronic medical problem and to assure normal liver response to medications. 01/23/2018 Appointment: [facility] Fl[facility]agan [facility]el[facility] [phone] [facility] [place] (15 min) Moderate 01/23/2018 Patient Education: Patient Medication Summary Completed 01/23/2018 Visit Plan: Cough - improved - sinusitis resolved. 09/26/2017 Appointment: Concepción Flanagan WPtel[facility] [phone] [facility] (15 min) Moderate 09/26/2017 Patient Education: Patient Medication Summary Completed 09/26/2017 Visit Plan: Acute Maxillary Sinusitis - if not improving - pt would like to see an ENT - [facility] in [place]. Treatment as follows: cefdinir - antibiotic twice daily x 2 weeks diflucan antifungal one time daily x 2 weeks use your sinus rinse at least twice each morning and evening Hypertension - well controlled - continue with current medications, continue with no added salt diet. Pt has been encouraged to exercise daily. The pt has been advised to call the office if there are any acute concerns about change in blood pressure readings at home. Hyperlipidemia - pt has been counseled about appropriate diet, exercise, and need for low fat food choices. I have discussed the need for the patient to take medications as prescribed. If the patient has negative side effects from the medication, they are to CALL the office and not abruptly discontinue the medication without discussion with a practitioner in the office. We will check labs in 3-6 months for follow up on the patient's chronic medical problem and to assure normal liver response to medications. Hypothyroidism - pt with chronic hypothyroidism, continue with current medication, will monitor pt to signs or Gary - Pt advised to increase fluids, vitamin C. Discussed natural and expected course of this diagnosis and need to alert me if symptoms do not follow expected course, or if any worse. RX sent to patient's pharmacy. Knee pain - Chronic pain - symptoms - refilled hydrocodone. 09/12/2017 Appointment: Concepción Flanagan [facility]Ptel[facility] [phone] [facility] (15 min) Moderate 09/12/2017 Patient Education: Patient Medication Summary Completed 09/12/2017 Visit Plan: Sinusitis - Pt has acute infection - pain in face, maxillary region, Pt informed to use decongestant, RX given to patient, sinus rinses also recommended. Call if symptoms do not show improvement. Allergies - chronic - recommended pt to use allergy medication as prescribed. Pt has been counseled as to the appropriate use of the medication. Pt to call if allergy symptoms are not controlled with the medication. If using nasal spray , instructions as follows: Nasal spray- use twice daily, one spray per nostril twice daily, after 30 minutes, rinse out nose with saline spray.. Use opposite hand per nostril to spray in the nasal steroid allergy spray. 08/31/2017 Appointment: [facility] [phone] [facility] (30 min) Complex 08/31/2017 Patient Education: Patient Medication Summary Completed 08/31/2017 Visit Plan: URI - Pt advised to increase fluids, vitamin C. Discussed natural and expected course of this diagnosis and need to alert me if symptoms do not follow expected course, or if any worse. RX sent to patient' s pharmacy. 08/09/2017 Appointment: Chaparrita Arrieta [facility]Ptel[facility] [phone] [phone] [place] (30 min) Complex 08/09/2017 Patient Education: Patient Medication Summary Completed 08/09/2017 Visit Plan: Hypertension - well controlled - continue with current medications, continue with no added salt diet. Pt has been encouraged to exercise daily. The pt has been advised to call the office if there are any acute concerns about change in blood pressure readings at home. Hyperlipidemia - pt has been counseled about appropriate diet, exercise, and need for low fat food choices. I have discussed the need for the patient to take medications as prescribed. If the patient has negative side effects from the medication, they are to CALL the office and not abruptly discontinue the medication without discussion with a practitioner in the office. We will check labs in 3-6 months for follow up on the patient's chronic medical problem and to assure normal liver response to medications. Hypothyroidism - pt with chronic hypothyroidism, continue with current medication, will monitor pt to signs or symptoms of lack of adequate supplementation. Pt is to continue with current dose of medication unless directed otherwise. Check labs at regular intervals wither q 3 months or q 6 months based on previous levels of control. Knee pain - Chronic pain - symptoms - refilled hydrocodone. 05/07/2017 Appointment: Concepción Flanagan WPtel: [phone] [facility] [place] (15 min) Moderate 05/07/2017 Patient Education: Patient Medication Summary Completed 05/07/2017 Patient Education: Obesity Completed 05/07/2017 Visit Plan: Medicare Exam - today we discussed the patients past history, immunizations, preventative exams/evaluations - colonoscopy, fecal occult blood testing, routine labs for renal function, glucose, cholesterol, osteoporosis evaluations, cardiovascular testing and cancer screenings. We have also discussed mental health and the signs/symptoms of depression. The patient was advised of home safety evaluations and the need to make sure that as the aging process continues, we need to be aware of different ways to make the home a safer place to reside. The patient has also been counseled that exercise is necessary - and of utmost importance as we age to help decrease fall risk and to maintain independence in the home. Today we discussed the need for the patient to create paperwork for Advanced directives as well as for the patient to provide this office with a copy of her DOPA paperwork for health care surrogate. 04/12/2017 Visit Plan: Medicare Exam - today we discussed the patients past history, immunizations, preventative exams/evaluations - colonoscopy, fecal occult blood testing, routine labs for renal function, glucose, cholesterol, osteoporosis evaluations, cardiovascular testing and cancer screenings. We have also discussed mental health and the signs/symptoms of depression. The patient was advised of home safety evaluations and the need to make sure that as the aging process continues, we need to be aware of different ways to make the home a safer place to reside. The patient has also been counseled that exercise is necessary - and of utmost importance as we age to help decrease fall risk and to maintain independence in the home. Today we discussed the need for the patient to create paperwork for Advanced directives as well as for the patient to provide this office with a copy of her DOPA paperwork for health care surrogate. 04/12/2017 Appointment: Hayley London [facility]Ptel[facility] [phone] [facility] [facility] - Annual Wellness Visit 04/12/2017 Patient Education: Patient Medication Summary Completed 04/12/2017 Appointment: Nurse Visit 02/15/2017 Patient Education: Patient Medication Summary Completed 02/15/2017 Visit Plan: Twyxf-[id number]-hcllx zpack when finished with cipro-follow up chest xray on Sunday UTI-finish cipro and repeat UA 02/05/2017 Patient Education: Patient Medication Summary Completed 02/05/2017 Visit Plan: Esophageal Reflux - the patient has been counseled against excessive intake of caffeine, spicy foods, peppermint, and cinnamon - all of which can exacerbate esophageal reflux. The patient is to take medications as prescribed and call the office if the symptoms are not improving. TAKE OMEPRAZOLE DAILY UTI-on cipro per Dr Marino which is sensitive to bacteria Constipation-increase stool softener to QOD, daily if needed Edema- take lasix every day-follow up Sunday02/02/2017 Appointment: Chaparrita Arrieta WPtel: [phone] [phone] (15 min) Moderate 02/02/2017 Patient Education: Patient Medication Summary Completed 02/02/2017 Patient Education: Obesity Completed 02/02/2017 Visit Plan: Sinusitis - Pt has acute infection - pain in face, maxillary region, Pt informed to use decongestant, RX given to patient, sinus rinses also recommended. Call if symptoms do not show improvement. 01/15/2017 Appointment: Chaparrita Arrieta WPtel[facility] [phone] [phone] (10 min) Simple 01/15/2017 Patient Education: Patient Medication Summary Completed 01/15/2017 Visit Plan: Hypertension - well controlled - continue with current medications, continue with no added salt diet. Pt has been encouraged to exercise daily. The pt has been advised to call the office if there are any acute concerns about change in blood pressure readings at home. Hyperlipidemia - pt has been counseled about appropriate diet, exercise, and need for low fat food choices. I have discussed the need for the patient to take medications as prescribed. If the patient has negative side effects from the medication, they are to CALL the office and not abruptly discontinue the medication without discussion with a practitioner in the office. We will check labs in 3-6 months for follow up on the patient's chronic medical problem and to assure normal liver response to medications. Chronic Pain Syndrome - pt has chronic pain - has been maintained on current medications, has not sought out other medications , only uses PRN pain medications as directed, and understands the consequences of over-medication. Allergies - kenalog shot today 01/04/2017 Appointment: Concepción Flanagan WPtel: [phone] [facility] (15 min) Moderate 01/04/2017 Patient Education: Patient Medication Summary Completed 01/04/2017 Visit Plan: Hypertension - well controlled - continue with current medications, continue with no added salt diet. Pt has been encouraged to exercise daily. The pt has been advised to call the office if there are any acute concerns about change in blood pressure readings at home. Anxiety - the patient has uncontrolled anxiety and will benefit from an SSRI on a daily basis to attempt control of the symptoms of anxiety (tachycardia, overwhelming sensations, stress, insomnia, etc). Pt is aware of the risks and benefits of treatment with the medication (lexapro). 09/07/2016 Appointment: Concepción Flanagan WPtel: [facility] (30 min) Complex 09/07/2016 Patient Education: Patient Medication Summary Completed 09/07/2016 Patient Education: Obesity Completed 09/07/2016 Appointment: Injection 08/23/2016 Patient Education: Patient Medication Summary Completed 08/23/2016 Visit Plan: Hypertension - well controlled - continue with current medications, continue with no added salt diet. Pt has been encouraged to exercise daily. The pt has been advised to call the office if there are any acute concerns about change in blood pressure readings at home. 07/06/2016 Appointment: Concepción Flanagan WPtel: [facility] (15 min) Moderate 07/06/2016 Patient Education: Patient Medication Summary Completed 07/06/2016 Patient Education: Obesity Completed 07/06/2016 Appointment: Nurse Visit 06/16/2016 Patient Education: Patient Medication Summary Completed 06/16/2016 Visit Plan: Hypertension - well controlled - continue with current medications, continue with no added salt diet. Pt has been encouraged to exercise daily. The pt has been advised to call the office if there are any acute concerns about change in blood pressure readings at home. Depression - INCREASE THE LEXAPRO TO 10MG DAILY Chronic pain - uncontrolled - START THE HYDROCODONE AT 1/2 PILL TWICE DAILY 06/08/2016 Appointment: Concepción Flanagan WPtel: [facility] (15 min) Moderate 06/08/2016 Patient Education: Patient Medication Summary Completed 06/08/2016 Visit Plan: continue with benicar 40mg, and increase her diltiazem to 240mg daily 04/17/2016 Appointment: Nurse Visit 04/17/2016 Patient Education: Patient Medication Summary Completed 04/17/2016 Patient Education: Hypertension Completed 04/17/2016 Visit Plan: Hypertension - well controlled - continue with current medications, continue with no added salt diet. Pt has been encouraged to exercise daily. The pt has been advised to call the office if there are any acute concerns about change in blood pressure readings at home. Edema - pt has been advised to elevate legs to prevent dependent edema, compression has been recommended to help to naturally decrease peripheral edema. Diuretic use has been discussed and pt has been instructed in appropriate use of such medication as necessary to further attempt to reduce peripheral edema. 04/06/2016 Appointment: Concepción Flanagan WPtel: [phone] [facility] (15 min) Moderate 04/06/2016 Patient Education: Patient Medication Summary Completed 04/06/2016 Patient Education: Obesity Completed 04/06/2016 Patient Education: Hypertension Completed 04/06/2016 Appointment: Nurse Visit 03/10/2016 Patient Education: Patient Medication Summary Completed 03/10/2016 Visit Plan: Hypertension - uncontrolled - the patient's medications have been modified as documented in the visit note. The patient has been counseled to cut back on salt in diet for a no added salt diet, low fat diet, start an exercise program with low weight bearing exercises and higher aerobic activity for heart health. The patient is to check blood pressure readings as an outpatient and either fax, call, or email the readings to the office next week for practitioner to review. The pt is to call for acute concerns. Anxiety - the patient has uncontrolled anxiety and will benefit from an SSRI on a daily basis to attempt control of the symptoms of anxiety ( tachycardia, overwhelming sensations, stress, insomnia, etc). Pt is aware of the risks and benefits of treatment with the above medications. Hyperlipidemia - pt has been counseled about appropriate diet, exercise, and need for low fat food choices. I have discussed the need for the patient to take medications as prescribed. If the patient has negative side effects from the medication, they are to CALL the office and not abruptly discontinue the medication without discussion with a practitioner in the office. We will check labs in 3-6 months for follow up on the patient's chronic medical problem and to assure normal liver response to medications. Hypothyroidism - pt with chronic hypothyroidism, continue with current medication, will monitor pt to signs or symptoms of lack of adequate supplementation. Pt is to continue with current dose of medication unless directed otherwise. Check labs at regular intervals wither q 3 months or q 6 months based on previous levels of control. 03/09/2016 Appointment: (30 min) Complex 03/09/2016 Patient Education: Patient Medication Summary Completed 03/09/2016 Patient Education: Obesity Completed 03/09/2016 Patient Education: Hypertension Completed 03/09/2016 Visit Plan: Hypertension - well controlled - continue with current medications, continue with no added salt diet. Pt has been encouraged to exercise daily. The pt has been advised to call the office if there are any acute concerns about change in blood pressure readings at home. Hypothyroidism - pt with chronic hypothyroidism, continue with current medication, will monitor pt to signs or symptoms of lack of adequate supplementation. Pt is to continue with current dose of medication unless directed otherwise. Check labs at regular intervals wither q 3 months or q 6 months based on previous levels of control. Pt has nocturnal hypoxemia - has been wearing oxygen at 2 liters nasal cannula for years and has recent gotten a letter that she was being denied her oxygen. She needs oxygen and my office sent the letter and office note to her oxygen supplier. I will order an overnight oxygen for Mikala. 01/18/2016 Appointment: Concepción Flanagan WPtel: [address] [place], [place] [id number] (15 min) Moderate 01/18/2016 Patient Education: Patient Medication Summary Completed 01/18/2016 Patient Education: Obesity Completed 01/18/2016 Visit Plan: Hypertension - well controlled - continue with current medications, continue with no added salt diet. Pt has been encouraged to exercise daily. The pt has been advised to call the office if there are any acute concerns about change in blood pressure readings at home. Arthritis- bilateraly knees- occasionally uncontrolled symptoms- recommend pt to take antiinflammatory as directed for pain control. RX for hydrocodone for breakthrough pain Hypothyroidism - pt with chronic hypothyroidism, continue with current medication, will monitor pt to signs or symptoms of lack of adequate supplementation. Pt is to continue with current dose of medication unless directed otherwise. Check labs at regular intervals wither q 3 months or q 6 months based on previous levels of control. Nocturnal hypoxemia-patient wears 2L oxygen at night and tolerating well-feeling more rested, sleeping better, and daytime fatigue improved-will fax today's note to [facility] for re-certification of oxygen. 09/09/2015 Visit Plan: Hypertension - well controlled - continue with current medications, continue with no added salt diet. Pt has been encouraged to exercise daily. The pt has been advised to call the office if there are any acute concerns about change in blood pressure readings at home. Arthritis- bilateral knees- occasionally uncontrolled symptoms- recommend pt to take antiinflammatory as directed for pain control. RX for hydrocodone for breakthrough pain Hypothyroidism - pt with chronic hypothyroidism, continue with current medication, will monitor pt to signs or symptoms of lack of adequate supplementation. Pt is to continue with current dose of medication unless directed otherwise. Check labs at regular intervals wither q 3 months or q 6 months based on previous levels of control. Nocturnal hypoxemia-patient wears 2L oxygen at night and tolerating well-feeling more rested, sleeping better, and daytime fatigue improved-will fax today's note to [employer] [facility] for re-certification of oxygen. 09/09/2015 Appointment: (15 min) Moderate 09/09/2015 Patient Education: Patient Medication Summary Completed 09/09/2015 Patient Education: Hypertension Completed 09/09/2015 Visit Plan: Hypertension - well controlled - continue with current medications, continue with no added salt diet. Pt has been encouraged to exercise daily. The pt has been advised to call the office if there are any acute concerns about change in blood pressure readings at home. Anemia - check CBC today. Sleep apnea and nocturnal hypoxemia - pt is not interested at this time to have a sleep study - she will discuss with her son who is a [employer] Engineer - and consider re-evaluation for nasal pillows with her cpap since she could not tolerate a face mask cpap in the past. 12/25/2014 Appointment: Concepción Flanagan WPtel: [address] [facility] [place] Follow up 12/25/2014 Patient Education: Patient Medication Summary Completed 12/25/2014 Patient Education: Hypertension Completed 12/25/2014 Visit Plan: Hypertension - well controlled - continue with current medications, continue with no added salt diet. Pt has been encouraged to exercise daily. The pt has been advised to call the office if there are any acute concerns about change in blood pressure readings at home. 10/13/2014 Appointment: Concepción Flanagan WPtel: [phone] [id number] [place] Follow up 10/13/2014 Patient Education: Patient Medication Summary Completed 10/13/2014 Patient Education: Hypertension Completed 10/13/2014 Visit Plan: Hypertension - well controlled - continue with current medications, continue with no added salt diet. Pt has been encouraged to exercise daily. The pt has been advised to call the office if there are any acute concerns about change in blood pressure readings at home. Hyperlipidemia - pt has been counseled about appropriate diet, exercise, and need for low fat food choices. I have discussed the need for the patient to take medications as prescribed. If the patient has negative side effects from the medication, they are to CALL the office and not abruptly discontinue the medication without discussion with a practitioner in the office. We will check labs in 3-6 months for follow up on the patient's chronic medical problem and to assure normal liver response to medications. Sleep Apnea - recommended pt to have sleep study - she will discuss with her . 08/28/2014 Appointment: Concepción Flanagan WPtel: [facility] Follow up 08/28/2014 Patient Education: Patient Medication Summary Completed 08/28/2014 Patient Education: Hypertension Completed 08/28/2014 Appointment: Nurse Visit 08/07/2014 Patient Education: Patient Medication Summary Completed 08/07/2014 Patient Education: Hypertension Completed 08/07/2014 Patient Education: Patient Medication Summary Completed 05/20/2014 Visit Plan: Sinusitis - Pt has acute infection - pain in face, maxillary region, Pt informed to use decongestant, RX given to patient, sinus rinses also recommended. Call if symptoms do not show improvement. UTI - pt with positive urinalysis - culture sent if appropriate. Antibiotic electronically prescribed to pt's pharmacy of choice. Pt to call if symptoms do not improve. Nocturnal hypoxia-overnight oxygen study 05/07/2014 Patient Education: Patient Medication Summary Completed 05/07/2014 Visit Plan: Hypertension - per home reports, her blood pressure has been well controlled - continue with current medications, continue with no added salt diet. Pt has been encouraged to exercise daily. The pt has been advised to call the office if there are any acute concerns about change in blood pressure readings at home. Hyperlipidemia - pt has been counseled about appropriate diet, exercise, and need for low fat food choices. I have discussed the need for the patient to take medications as prescribed. If the patient has negative side effects from the medication, they are to CALL the office and not abruptly discontinue the medication without discussion with a practitioner in the office. We will check labs in 3-6 months for follow up on the patient's chronic medical problem and to assure normal liver response to medications. OA - pain uncontrolled - start on meloxicam, monitor creatinine. 04/16/2014 Appointment: Concepción Flanagan WPtel: [address] [facility] Follow up 04/16/2014 Patient Education: Patient Medication Summary Completed 04/16/2014 Patient Education: Patient Medication Summary Completed 04/14/2014 Patient Education: Hypertension Completed 04/14/2014 Visit Plan: Wound Instructions - Pt was instruced to keep the wound clean, wash with antibacterial soap, use triple antibiotic ointment, call if redness, pustular drainage, or any other acute conerns. 01/27/2014 Appointment: Concepción Flanagan WPtel: [phone] [facility] [facility] Procedure 01/27/2014 Patient Education: Patient Medication Summary Completed 01/27/2014 Visit Plan: Hypertension - well controlled - continue with current medications, continue with no added salt diet. Pt has been encouraged to exercise daily. The pt has been advised to call the office if there are any acute concerns about change in blood pressure readings at home. Hyperlipidemia - pt has been counseled about appropriate diet, exercise, and need for low fat food choices. I have discussed the need for the patient to take medications as prescribed. If the patient has negative side effects from the medication, they are to CALL the office and not abruptly discontinue the medication without discussion with a practicioner in the office. We will check labs in 3-6 months for follow up on the patient's chronic medical problem and to assure normal liver response to medications. Cerumen Impaction - The impacted cerumen was removed with the use of the ear currette. The patient tolerated the procedure without incident and had improvement in hearing. The wax was removed by the practicioner due to the wax being more complicated to remove, and staff was needed to assit the removal of the wax by holding the ear, and keepig patient stabilized during the removal process. Nocturnal Hypoxemia - recommended pt to continue with home oxygen - recommended pt to have the medical supplier come out to do home eval. 01/21/2014 Appointment: Concepción Flanagan WPtel: [address] [place], [place] [id number] Follow up 01/21/2014 Patient Education: Patient Medication Summary Completed 01/21/2014 Patient Education: Hypertension Completed 01/21/2014 Visit Plan: Hypotension - Bradycardia - pt to stop her metroprolol - check bp and heart rate twice daily and monitor symptoms. Call if bp uncontrolled- or heart rate to elevated. 01/07/2014 Appointment: Concepción Flanagan WPtel: [address] [place], [place] [id number] Follow up 01/07/2014 Patient Education: Hypertension Completed 01/07/2014 Patient Education: Patient Medication Summary Completed 01/07/2014 Visit Plan: URI - Pt advised to increase fluids, vitamin C. Discussed natural and expected course of this diagnosis and need to alert me if symtpoms do not follow expected course, or if any worse. RX sent to patient' s pharmacy. 12/26/2013 Patient Education: Patient Medication Summary Completed 12/26/2013 Visit Plan: Allergies - chronic - recommended pt to use allergy medication as prescribed. Pt has been counseled as the the appropriate use of the medication. Pt to call if allergy symptoms are not controlled with the medication. Kenalog injection today in the office. Thrush-RX for nystatin swish and swallow 11/12/2013 Appointment: Chaparrita Arrieta WPtel: [address] [place], [place] [id number] Sick 11/12/2013 Patient Education: Patient Medication Summary Completed 11/12/2013 Patient Education: Hypertension Completed 11/12/2013 Visit Plan: Sinusitis - Pt has acute infection - pain in face, maxillary region, Pt informed to use decongestant, RX given to patient, sinus rinses also recommended. Call if symptoms do not show improvement. 10/09/2013 Appointment: Chaparrita Arrieta WPtel: [address] [place], [place] [id number] Sick 10/09/2013 Patient Education: Patient Medication Summary Completed 10/09/2013 Visit Plan: Hypertension - well controlled - continue with current medications, continue with no added salt diet. Pt has been encouraged to exercise daily. The pt has been advised to call the office if there are any acute concerns about change in blood pressure readings at home. Dysuria - check UA 04/03/2013 Appointment: Concepción Flanagan WPtel: [address] [id number] Follow up 04/03/2013 Patient Education: Patient Medication Summary Completed 04/03/2013 Patient Education: Hypertension Completed 04/03/2013 Patient Education: Patient Medication Summary Completed 03/31/2013 Patient Education: Hypertension Completed 03/31/2013 Visit Plan: ua performed - sent for culture if indicated. 03/21/2013 Appointment: Concepción Flanagan WPtel: [phone] [id number] Lab Draw 03/21/2013 Patient Education: Patient Medication Summary Completed 03/21/2013 Visit Plan: Hypertension - well controlled - continue with current medications, continue with no added salt diet. Pt has been encouraged to exercise daily. The pt has been advised to call the office if there are any acute concerns about change in blood pressure readings at home. Edema - pt has been advised to elevate legs to prevent dependent edema, compression has been recommended to help to naturally decrease peripheral edema. Diuretic use has been discussed and pt has been instructed in appropriate use of such medication as necessary to further attempt to reduce peripheral edema. 01/06/2013 Appointment: Concepción Flanagan WPtel: [phone] [id number] Follow up 01/06/2013 Patient Education: Patient Medication Summary Completed 01/06/2013 Patient Education: Hypertension Completed 01/06/2013 Visit Plan: Iqqruhrhr-Wlovlc-fopxpotp not well controlled- KENALOG injection today in the office-use albuterol as needed. Instructed patient to continue with singulair daily and call if symptoms do not improve, or worsen. 11/21/2012 Patient Education: Patient Medication Summary Completed 11/21/2012 Visit Plan: Hypertension - well controlled - continue with current medications, continue with no added salt diet. Pt has been encouraged to exercise daily. The pt has been advised to call the office if there are any acute concerns about change in blood pressure readings at home. Edema - pt has been advised to elevate legs to prevent dependent edema, compression has been recommended to help to naturally decrease peripheral edema. Diuretic use has been discussed and pt has been instructed in appropriate use of such medication as necessary to further attempt to reduce peripheral edema. 10/28/2012 Appointment: Concepción Flanagan WPtel: [phone] [id number] Follow up 10/28/2012 Patient Education: Patient Medication Summary Completed 10/28/2012 Patient Education: Hypertension Completed 10/28/2012 Visit Plan: Hypertension - well controlled - continue with current medications, continue with no added salt diet. Pt has been encouraged to exercise daily. The pt has been advised to call the office if there are any acute concerns about change in blood pressure readings at home. Edema-stable, actually improved from usual, continue with current treatment. Urge incontinence -Pt has urge incontinence - the patient has been counseled about potential triggers for increase in sensation of the urgency - the pt has been counseled to avoid caffinated products, spicy products, and to urinate every 2- 3 hours to prevent the incontinence associated with the urgency. Pt is to continue with current treatment plan and call if symptoms worsen. Knee pain- recommended pt to use Pennsaid drops for knee pain and to see Dr. Joshi for further treatment recommendations. 09/30/2012 Appointment: Concepción Flanagan WPtel: [phone] Follow up 09/30/2012 Patient Education: Patient Medication Summary Completed 09/30/2012 Patient Education: Hypertension Completed 09/30/2012 Appointment: Concepción Flanagan WPtel: [phone] [facility] [place] Lab Draw 09/11/2012 Patient Education: Patient Medication Summary Completed 09/11/2012 Patient Education: Hypertension Completed 09/11/2012 Visit Plan: Hypertension - well controlled - continue with current medications, continue with no added salt diet. Pt has been encouraged to exercise daily. The pt has been advised to call the office if there are any acute concerns about change in blood pressure readings at home. Cellulitis - resolved 08/14/2012 Appointment: Concepción Flanagan WPtel: [address] [place], [place] [id number] Follow up 08/14/2012 Patient Education: Patient Medication Summary Completed 08/14/2012 Patient Education: Hypertension Completed 08/14/2012 Visit Plan: Cellulitis - start with generic Bactrim DS as directed, return to clinic as previously directed, call for acute change in symptoms, worsening redness, warmth, discharge. 08/05/2012 Appointment: Concepción Flanagan WPtel: [address] [place], [place] [id number] Follow up 08/05/2012 Patient Education: Patient Medication Summary Completed 08/05/2012 Visit Plan: Hypertension - well controlled - continue with current medications, continue with no added salt diet. Pt has been encouraged to exercise daily. The pt has been advised to call the office if there are any acute concerns about change in blood pressure readings at home. Edema - pt has been advised to elevate legs to prevent dependent edema, compression has been recommended to help to naturally decrease peripheral edema. Diuretic use has been discussed and pt has been instructed in appropriate use of such medication as necessary to further attempt to reduce peripheral edema. Constipation- miralax to be started snd she is to use this daily to help soften stools. 07/15/2012 Appointment: Concepción Flanagan WPtel: [address] [place], [place] [id number] [place] [address] follow up 07/15/2012 Patient Education: Patient Medication Summary Completed 07/15/2012 Patient Education: Hypertension Completed 07/15/2012 Visit Plan: Subungual discoloratiion of toenail- June 10 pt is to see Dr[address] Bee - I have discussed the case with the pt and Dr. bee and she will likely have a biopsy of the digit and avulsion of the nail. 05/27/2012 Appointment: Concepción Flanagan WPtel: [address] [place], [place] [id number] [facility] 05/27/2012 Patient Education: Patient Medication Summary Completed 05/27/2012 Appointment: Chaparrita Arrieta WPtel: [address] [place], [place] [phone] Follow up 05/16/2012 Visit Plan: Obesity - chronic issue with this patient. The pt has been counseled about diet changes, calorie restriction, and need to exercise. Pt will RTC in one month for weight check. Diabetes Mellitus - Uncontrolled - per recent FSBS reports. I have recommended for the patient to have follow up labs prior to the next office visit. The patient has been instructed to continue with current medications as previously directed, continue with regular FSBS monitoring to assure continued control of diabetes. Pt to call for any acute concerns, complaints, or if the blood glucose readings are starting to become less controlled. I have recommended for the patient to follow more strictly to the diabetic diet as discussed in clinic to allow for greater blood glucose control. Wound Instructions - Pt was instruced to keep the wound clean, wash with antibacterial soap, use triple antibiotic ointment, call if redness, pustular drainage, or any other acute conerns. Sutures removed today Influenza vaccine 05/03/2012 Appointment: Chaparrita Arrieta WPtel: [facility]8 [id number] [place] [address] Follow up 05/03/2012 Patient Education: Patient Medication Summary Completed 05/03/2012 Visit Plan: Wound Instructions - Pt was instruced to keep the wound clean, wash with antibacterial soap, use triple antibiotic ointment, call if redness, pustular drainage, or any other acute conerns. 04/23/2012 Appointment: Concepción Flanagan WPtel: [facility]5 [facility] [place] Surgical Procedure 04/23/2012 Patient Education: Patient Medication Summary Completed 04/23/2012 Appointment: Concepción Flanagan WPtel: [facility]5 [facility] [place] Lab Draw 04/16/2012 Patient Education: Patient Medication Summary Completed 04/16/2012 Patient Education: High Blood Pressure: Essential Hypertension Completed 2011 Visit Plan: Hypertension - well controlled - continue with current medications, continue with no added salt diet. Pt has been encouraged to exercise daily. The pt has been advised to call the office if there are any acute concerns about change in blood pressure readings at home. Recommend follow up with double cut sawyer for clearance before knee surgery. Will get patient appt with Dr. Luther Arthritis- occasionally uncontrolled symptoms- recommend pt to take antiinflammatory as directed for pain control. Use tylenol for break through pain symptoms. Will start butrans today per Dr. Urena recommendation and montior symptoms. Appt with Dr. Joshi for possible knee replacement Edema - uncontrolled swelling. I have informed the patient of ways to naturally decrease the swelling in their lower legs - cut back on salt to 2 - 3 grams/day, the lower the sodium content of food, the healthier and less potential for swelling, however don't completely cut all sodium from diet. Pt was also counseled to elevate lower legs and/or use compression socks from toes to thighs. 03/25/2012 Appointment: [facility]cepc[facility] Flanagan [facility]Ptel[facility] [facility] 03/25/2012 Patient Education: Patient Medication Summary Completed 03/25/2012 Patient Education: High Blood Pressure: Essential Hypertension Completed 2011 Visit Plan: Hypertension - uncontrolled - the patient's medications have been modified as documented in the visit note. The patient has been counseled to cut back on salt in diet for a no added salt diet, low fat diet, start an exercise program with low weight bearing exercises and higher aerobic activity for heart health. The patient is to check blood pressure readings as an outpatient and either fax, call, or email the readings to the office next week for practicioner to review. The pt is to call for acute concerns. Gas and bloating-recommend beano prn Abnormal skin lesion-right posterior arm-recommend removal and biopsy of lesion. 03/12/2012 Appointment: [facility]arrita Arrieta [facility]el[facility] Other 03/12/2012 Patient Education: Patient Medication Summary Completed 03/12/2012 Patient Education: High Blood Pressure: Essential Hypertension Completed 2011 Visit Plan: Edema - pt has been advised to elevate legs to prevent dependent edema, compression has been recommended to help to naturally decrease peripheral edema. Diuretic use has been discussed and pt has been instructed in appropriate use of such medication as necessary to further attempt to reduce peripheral edema. HAS BEEN ADVISED TO TAKE AN EXTRA 1/2 LASIX TODAY AND TOMORROW TO HELP DECREASE THE EXTRA SWELLING IN HER LEGS FROM THE EXTRA SALT INTAKE FROM THIS WEEKEND. Hypertension - well controlled - continue with current medications, continue with no added salt diet. Pt has been encouraged to exercise daily. The pt has been advised to call the office if there are any acute concerns about change in blood pressure readings at home. 01/23/2012 Appointment: Concepción Flanagan WPtel: [address] [facility]66[facility] Other 01/23/2012 Patient Education: Patient Medication Summary Completed 01/23/2012 Patient Education: High Blood Pressure: Essential Hypertension Completed 2011 Visit Plan: Breast cauo-ibfg-ejbmydkxy natural and expected course of this diagnosis and to alert me if symptoms do not follow expected course, or if any worse. Plan for diagnostic mammogram, in meantime, instructed patient to get more supportive bra, use anti-inflammatories and monitor symptoms. Patient verbalized understanding of plan. 01/12/2012 Appointment: Chaparrita Arrieta WPtel: [address] [facility] [place] [address] Other 01/12/2012 Patient Education: Patient Medication Summary Completed 01/12/2012 Visit Plan: HTN - continue with current medications - no change at this time. Recommended follow up in about 4 weeks. Bring by the blood pressure readings in two weeks. Chronic Depression and anxiety - the pt has symptoms of chronic anxiety and depression that have been fairly well controlled since the last office visit. The pt has expected periods of exacerbation with abatement of the symptoms with change in situational exposure. No change in current medications. 12/25/2011 Appointment: Concepción Flanagan WPtel: [facility]7 [facility]66[facility] Other 12/25/2011 Patient Education: Patient Medication Summary Completed 12/25/2011 Patient Education: High Blood Pressure: Essential Hypertension Completed 2011 Patient Education: Patient Medication Summary Completed 12/21/2011 Patient Education: High Blood Pressure: Essential Hypertension Completed 2011 Visit Plan: Hypertension - uncontrolled - the patient's medications have been modified as documented in the visit note. The patient has been counseled to cut back on salt in diet for a no added salt diet, low fat diet, start an exercise program with low weight bearing exercises and higher aerobic activity for heart health. The patient is to check blood pressure readings as an outpatient and either fax, call, or email the readings to the office next week for practicioner to review. The pt is to call for acute concerns.STOP the NORVASC START ON THE TEKTUNA AND STAY ON THE MICARDIS FOR NOW. RETURN TO CLINIC IN 3 WEEKS. CHECK BLOOD PRESSURE DAILY AND HEART RATE DAILY AND CALL THE BLOOD PRESSURE AND HEART RATE INTO CLINIC NEXT SUNDAY. CALL SOONER IF THE BLOOD PRESSURE IS ABOVE 170/90. TEKTURNA IS 150MG Edema - pt has been advised to elevate legs to prevent dependent edema, compression has been recommended to help to naturally decrease peripheral edema. Diuretic use has been discussed and pt has been instructed in appropriate use of such medication as necessary to further attempt to reduce peripheral edema. FOR THE EDEMA - GET THE COMPRESSION SOCKS. 12/04/2011 Appointment: Concepción Flanagan WPtel: [facility] [facility] [place] Other 12/04/2011 Patient Education: Patient Medication Summary Completed 12/04/2011 Patient Education: High Blood Pressure: Essential Hypertension Completed 2011 Appointment: Chaparrita Arrieta [facility]Ptel[phone] [facility] [place] Lab Draw 12/01/2011 Patient Education: Patient Medication Summary Completed 12/01/2011 Appointment: Concepción Flanagan WPtel: [facility] [facility] [place] Lab Draw 11/20/2011 Patient Education: Patient Medication Summary Completed 11/20/2011 Visit Plan: Hypertension - uncontrolled - the patient's medications have been modified as documented in the visit note. The patient has been counseled to cut back on salt in diet for a no added salt diet, low fat diet, start an exercise program with low weight bearing exercises and higher aerobic activity for heart health. The patient is to check blood pressure readings as an outpatient and either fax, call, or email the readings to the office next week for practicioner to review. The pt is to call for acute concerns. Pt started on norvasc 5 mg daily, call with blood pressures next week. Depression - improved, but not yet optimally controlled - Pt has been counseled about the diagnosis of depression, the potential causes, and risks associated with the diagnosis. The pt denies suicidal ideation, or plans. The patient has been counseled about treatment options, and understands the risks associated with treatment of depression, as well as the risks associated with NOT treating the depression. I believe the pt will benefit from continued medical intervention and she was given samples and a copay card for free 30 day trial of cymbalta 30mg. pt to call if symptoms acutely worsen. 09/20/2011 Appointment: Concepción Flanagan WPtel: [facility]9 [facility] Other 09/20/2011 Patient Education: Patient Medication Summary Completed 09/20/2011 Patient Education: High Blood Pressure: Essential Hypertension Completed 2011 Appointment: Concepción Flanagan WPtel: [address] [facility] Other 09/13/2011 Visit Plan: Hypertension - The patient has been counseled to cut back on salt in diet for a no added salt diet, low fat diet, start an exercise program with low weight bearing exercises and higher aerobic activity for heart health. The patient is to check blood pressure readings as an outpatient and either fax, call, or email the readings to the office next week for practicioner to review. The pt is to call for acute concerns. Anxiety - the patient has uncontrolled anxiety and will benefit from medication on a daily basis to attempt control of the symptoms of anxiety (tachycardia, overwhelming sensations, stress, insomnia, etc). Pt is aware of the risks and benefits of treament with the above medications. Ciwwddp-qxlfplta-GU negative 09/06/2011 Appointment: Chaparrita Arrieta WPtel: [facility]7 [facility] Other 09/06/2011 Patient Education: Patient Medication Summary Completed 09/06/2011 Patient Education: High Blood Pressure: Essential Hypertension Completed 2011 Visit Plan: Hypertension - uncontrolled - the patient's medications have been modified as documented in the visit note. The patient has been counseled to cut back on salt in diet for a no added salt diet, low fat diet, start an exercise program with low weight bearing exercises and higher aerobic activity for heart health. The patient is to check blood pressure readings as an outpatient and either fax, call, or email the readings to the office next week for practicioner to review. The pt is to call for acute concerns. CONTINUE WITH THE METOPROLOL 100MG IN THE MORNING AND 25MG AT BEDTIME , NO CHANGE IN MICARDIS DOSE. UTI - pt with positive urinalysis - culture sent if appropriate. Antibiotic electronically prescribed to pt's pharmacy of choice. Pt to call if symptoms do not improve. Back pain- exercises discussed with the patient, pt to continue with antiinflammatories. Pt is to call if the symptoms do not improve or if they worsen. 08/30/2011 Appointment: Concepción Flanagan WPtel: [address] [place] [address] Other 08/30/2011 Patient Education: Patient Medication Summary Completed 08/30/2011 Patient Education: High Blood Pressure: Essential Hypertension Completed 2011 Visit Plan: Sinusitis - Pt has acute infection - pain in face, maxillary region, Pt informed to use decongestant, RX given to patient, sinus rinses also recommended. Call if symptoms do not show improvement. Rocephin injection given in the offie today. Urinary Frequency-UA done today- shows positive nitrites-plan to send for culture-RX for levaquin also sent to patient's pharmacy. 08/23/2011 Appointment: Chaparrita Arrieta WPtel: [address] [place], [place] [id number] Other 08/23/2011 Patient Education: Patient Medication Summary Completed 08/23/2011 Visit Plan: Labial cyst-discussed natural and expected course of this diagnosis and to alert me if symtpoms do not follow expected course, or if any worse. Patient and verbalized understanding. 08/09/2011 Appointment: Chaparrita Arrieta WPtel: [facility]1 [facility] Other 08/09/2011 Patient Education: Patient Medication Summary Completed 08/09/2011 Visit Plan: Hypertension - well controlled - continue with current medications, continue with no added salt diet. Pt has been encouraged to exercise daily. The pt has been advised to call the office if there are any acute concerns about change in blood pressure readings at home. Hyperlipidemia - pt has been counseled about appropriate diet, exercise, and need for low fat food choices. I have discussed the need for the patient to take medications as prescribed. If the patient has negative side effects from the medication, they are to CALL the office and not abruptly discontinue the medication without discussion with a practicioner in the office. We will check labs in 3-6 months for follow up on the patient's chronic medical problem and to assure normal liver response to medications. Knee pain- DR FLANAGAN WILL CALL DR. JOSHI TO ASK ABOUT KNEE ASPIRATION. Esophageal Reflux - the patient has been counseled against excessive intake of caffiene, spicy foods, peppermint, and cinnamon - all of which can exacerbate esophageal reflux. The patient is to take medications as prescribed and call the office if the symptoms are not improving. 05/04/2011 Appointment: Concepción Flanagan WPtel: [facility] [facility] [place] Other 05/04/2011 Patient Education: Patient Medication Summary Completed 05/04/2011 Visit Plan: URI-discussed expected course with the patient , pt advised to call for worsening symptoms, or lack of improvement on prescribed treatment course. Antibiotic sent patient's pharmacy. Continue with singulair daily as well. Asthma-symptoms not well controlled-sent prescription for albuterol inhaler to patient's pharmacy and instructed on use. Instructed patient to continue with singulair daily and call if symptoms do not improve, or worsen. Kenalog injection also given in the office today. GERD-pt advised to cut back on caffeine, spicey foods, peppermint, cinnimon, etc. samples given of nexium 40mg daily. 04/19/2011 Appointment: Chaparrita Arrieta WPtel[facility] [facility] [place] Other 04/19/2011 Patient Education: Patient Medication Summary Completed 04/19/2011 Referral: External, Ordering Provider Referral Appointment Requested Instructions Comment . Sinusitis - Pt has acute infection - pain in face, maxillary region, Pt informed to use decongestant, RX given to patient, sinus rinses also recommended. Call if symptoms do not show improvement. . Wound Instructions - Pt was instruced to keep the wound clean, wash with antibacterial soap, use triple antibiotic ointment, call if redness, pustular drainage, or any other acute conerns. . Hypertension - well controlled - continue with current medications, continue with no added salt diet. Pt has been encouraged to exercise daily. The pt has been advised to call the office if there are any acute concerns about change in blood pressure readings at home. 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 . Hypertension - well controlled - continue with current medications, continue with no added salt diet. Pt has been encouraged to exercise daily. The pt has been advised to call the office if there are any acute concerns about change in blood pressure readings at home. Hyperlipidemia - pt has been counseled about appropriate diet, exercise, and need for low fat food choices. I have discussed the need for the patient to take medications as prescribed. If the patient has negative side effects from the medication, they are to CALL the office and not abruptly discontinue the medication without discussion with a practicioner in the office. We will check labs in 3-6 months for follow up on the patient's chronic medical problem and to assure normal liver response to medications. Cerumen Impaction - The impacted cerumen was removed with the use of the ear currette. The patient tolerated the procedure without incident and had improvement in hearing. The wax was removed by the practicioner due to the wax being more complicated to remove, and staff was needed to assit the removal of the wax by holding the ear, and keepig patient stabilized during the removal process. Nocturnal Hypoxemia - recommended pt to continue with home oxygen - recommended pt to have the medical supplier come out to do home eval. Use your albuterol inhaler 1-2 puffs every 4-6 hours as needed for cough/SOA. Call if your symptoms do not improve, or if any worse.. Roovmrnkl-Cmzojv-mwcxbyqu not well controlled-KENALOG injection today in the office-use albuterol as needed. Instructed patient to continue with singulair daily and call if symptoms do not improve, or worsen. . continue with benicar 40mg, and increase her diltiazem to 240mg daily . ua performed - sent for culture if indicated. . Obesity - chronic issue with this patient. The pt has been counseled about diet changes, calorie restriction, and need to exercise. Pt will RTC in one month for weight check. Diabetes Mellitus - Uncontrolled - per recent FSBS reports. I have recommended for the patient to have follow up labs prior to the next office visit. The patient has been instructed to continue with current medications as previously directed, continue with regular FSBS monitoring to assure continued control of diabetes. Pt to call for any acute concerns, complaints, or if the blood glucose readings are starting to become less controlled. I have recommended for the patient to follow more strictly to the diabetic diet as discussed in clinic to allow for greater blood glucose control. Wound Instructions - Pt was instruced to keep the wound clean, wash with antibacterial soap, use triple antibiotic ointment, call if redness, pustular drainage, or any other acute conerns. Sutures removed today Influenza vaccine cefdinir - antibiotic twice daily x 2 weeks diflucan antifungal one time daily x 2 weeks use your sinus rinse at least twice each morning and evening . Acute Maxillary Sinusitis - if not improving - pt would like to see an ENT - [facility] Tompkins in [place]. Treatment as follows: cefdinir - antibiotic twice daily x 2 weeks diflucan antifungal one time daily x 2 weeks use your sinus rinse at least twice each morning and evening Hypertension - well controlled - continue with current medications, continue with no added salt diet. Pt has been encouraged to exercise daily. The pt has been advised to call the office if there are any acute concerns about change in blood pressure readings at home. Hyperlipidemia - pt has been counseled about appropriate diet, exercise, and need for low fat food choices. I have discussed the need for the patient to take medications as prescribed. If the patient has negative side effects from the medication, they are to CALL the office and not abruptly discontinue the medication without discussion with a practitioner in the office. We will check labs in 3-6 months for follow up on the patient's chronic medical problem and to assure normal liver response to medications. Hypothyroidism - pt with chronic hypothyroidism, continue with current medication, will monitor pt to signs or Gary - Pt advised to increase fluids, vitamin C. Discussed natural and expected course of this diagnosis and need to alert me if symptoms do not follow expected course, or if any worse. RX sent to patient's pharmacy. Knee pain - Chronic pain - symptoms - refilled hydrocodone. . Cellulitis - start with generic Bactrim DS as directed, return to clinic as previously directed, call for acute change in symptoms, worsening redness, warmth, discharge. . Hypertension - well controlled - continue with current medications, continue with no added salt diet. Pt has been encouraged to exercise daily. The pt has been advised to call the office if there are any acute concerns about change in blood pressure readings at home. Anemia - check CBC today. Sleep apnea and nocturnal hypoxemia - pt is not interested at this time to have a sleep study - she will discuss with her son who is a [employer] Engineer - and consider re-evaluation for nasal pillows with her cpap since she could not tolerate a face mask cpap in the past. . Hypertension - well controlled - continue with current medications, continue with no added salt diet. Pt has been encouraged to exercise daily. The pt has been advised to call the office if there are any acute concerns about change in blood pressure readings at home. Hyperlipidemia - pt has been counseled about appropriate diet, exercise, and need for low fat food choices. I have discussed the need for the patient to take medications as prescribed. If the patient has negative side effects from the medication, they are to CALL the office and not abruptly discontinue the medication without discussion with a practitioner in the office. We will check labs in 3-6 months for follow up on the patient's chronic medical problem and to assure normal liver response to medications. Chronic Pain Syndrome - pt has chronic pain - has been maintained on current medications, has not sought out other medications, only uses PRN pain medications as directed, and understands the consequences of over-medication. Allergies - kenalog shot today . URI-discussed expected course with the patient, pt advised to call for worsening symptoms, or lack of improvement on prescribed treatment course. Antibiotic sent patient's pharmacy. Continue with singulair daily as well. Asthma-symptoms not well controlled-sent prescription for albuterol inhaler to patient's pharmacy and instructed on use. Instructed patient to continue with singulair daily and call if symptoms do not improve, or worsen. Kenalog injection also given in the office today. GERD-pt advised to cut back on caffeine, spicey foods, peppermint, cinnimon, etc. samples given of nexium 40mg daily. Recommend diagnostic mammogram with ultrasound if needed Get supportive bra and make sure your breasts are well suppported. Recommend aleve twice daily and monitor symptoms. . Breast ivti-ttkb-mwjfenioz natural and expected course of this diagnosis and to alert me if symptoms do not follow expected course, or if any worse. Plan for diagnostic mammogram, in meantime, instructed patient to get more supportive bra, use anti- inflammatories and monitor symptoms. Patient verbalized understanding of plan. Overnight oxygen study . Sinusitis - Pt has acute infection - pain in face, maxillary region, Pt informed to use decongestant, RX given to patient, sinus rinses also recommended. Call if symptoms do not show improvement. UTI - pt with positive urinalysis - culture sent if appropriate. Antibiotic electronically prescribed to pt's pharmacy of choice. Pt to call if symptoms do not improve. Nocturnal hypoxia-overnight oxygen study . Medicare Exam - today we discussed the patients past history, immunizations, preventative exams/evaluations - colonoscopy, fecal occult blood testing, routine labs for renal function, glucose, cholesterol, osteoporosis evaluations, cardiovascular testing and cancer screenings. We have also discussed mental health and the signs/symptoms of depression. The patient was advised of home safety evaluations and the need to make sure that as the aging process continues, we need to be aware of different ways to make the home a safer place to reside. The patient has also been counseled that exercise is necessary - and of utmost importance as we age to help decrease fall risk and to maintain independence in the home. Today we discussed the need for the patient to create paperwork for Advanced directives as well as for the patient to provide this office with a copy of her DOPA paperwork for health care surrogate. . Medicare Exam - today we discussed the patients past history, immunizations, preventative exams/evaluations - colonoscopy, fecal occult blood testing, routine labs for renal function, glucose, cholesterol, osteoporosis evaluations, cardiovascular testing and cancer screenings. We have also discussed mental health and the signs/symptoms of depression. The patient was advised of home safety evaluations and the need to make sure that as the aging process continues, we need to be aware of different ways to make the home a safer place to reside. The patient has also been counseled that exercise is necessary - and of utmost importance as we age to help decrease fall risk and to maintain independence in the home. Today we discussed the need for the patient to create paperwork for Advanced directives as well as for the patient to provide this office with a copy of her DOPA paperwork for health care surrogate. . Wound Instructions - Pt was instruced to keep the wound clean, wash with antibacterial soap, use triple antibiotic ointment, call if redness, pustular drainage, or any other acute conerns. . Hypertension - well controlled - continue with current medications, continue with no added salt diet. Pt has been encouraged to exercise daily. The pt has been advised to call the office if there are any acute concerns about change in blood pressure readings at home. Edema - pt has been advised to elevate legs to prevent dependent edema, compression has been recommended to help to naturally decrease peripheral edema. Diuretic use has been discussed and pt has been instructed in appropriate use of such medication as necessary to further attempt to reduce peripheral edema. . Cerumen Impaction - The impacted cerumen was removed with the use of the ear currette. The patient tolerated the procedure without incident and had improvement in hearing. The wax was removed by the practitioner due to the wax being more complicated to remove, and staff was needed to assist the removal of the wax by holding the ear, and keeping patient stabilized during the removal process. . Cough - improved - sinusitis resolved. MIRALAX TO BE STARTED AND TAKEN DAILY FOR CONSTIPATION.. Hypertension - well controlled - continue with current medications, continue with no added salt diet. Pt has been encouraged to exercise daily. The pt has been advised to call the office if there are any acute concerns about change in blood pressure readings at home. Edema - pt has been advised to elevate legs to prevent dependent edema, compression has been recommended to help to naturally decrease peripheral edema. Diuretic use has been discussed and pt has been instructed in appropriate use of such medication as necessary to further attempt to reduce peripheral edema. Constipation- miralax to be started snd she is to use this daily to help soften stools. . Hypertension - well controlled - continue with current medications, continue with no added salt diet. Pt has been encouraged to exercise daily. The pt has been advised to call the office if there are any acute concerns about change in blood pressure readings at home. Hyperlipidemia - pt has been counseled about appropriate diet, exercise, and need for low fat food choices. I have discussed the need for the patient to take medications as prescribed. If the patient has negative side effects from the medication, they are to CALL the office and not abruptly discontinue the medication without discussion with a practicioner in the office. We will check labs in 3-6 months for follow up on the patient's chronic medical problem and to assure normal liver response to medications. Knee pain- DR FLANAGAN WILL CALL DR. JOSHI TO ASK ABOUT KNEE ASPIRATION. Esophageal Reflux - the patient has been counseled against excessive intake of caffiene, spicy foods, peppermint, and cinnamon - all of which can exacerbate esophageal reflux. The patient is to take medications as prescribed and call the office if the symptoms are not improving. stop metoprolol blood pressure and heart rate check twice daily . Hypotension - Bradycardia - pt to stop her metroprolol - check bp and heart rate twice daily and monitor symptoms. Call if bp uncontrolled- or heart rate to elevated. . Hypertension - well controlled - continue with current medications, continue with no added salt diet. Pt has been encouraged to exercise daily. The pt has been advised to call the office if there are any acute concerns about change in blood pressure readings at home. Hypothyroidism - pt with chronic hypothyroidism, continue with current medication, will monitor pt to signs or symptoms of lack of adequate supplementation. Pt is to continue with current dose of medication unless directed otherwise. Check labs at regular intervals wither q 3 months or q 6 months based on previous levels of control. Hyperlipidemia - pt has been counseled about appropriate diet, exercise, and need for low fat food choices. I have discussed the need for the patient to take medications as prescribed. If the patient has negative side effects from the medication, they are to CALL the office and not abruptly discontinue the medication without discussion with a practitioner in the office. We will check labs in 3-6 months for follow up on the patient's chronic medical problem and to assure normal liver response to medications. Knee pain - RX for voltaren gel - dry needling with surya randall for knees and back. . Hypertension - uncontrolled - the patient's medications have been modified as documented in the visit note. The patient has been counseled to cut back on salt in diet for a no added salt diet, low fat diet, start an exercise program with low weight bearing exercises and higher aerobic activity for heart health. The patient is to check blood pressure readings as an outpatient and either fax , call, or email the readings to the office next week for practicioner to review. The pt is to call for acute concerns. CONTINUE WITH THE METOPROLOL 100MG IN THE MORNING AND 25MG AT BEDTIME, NO CHANGE IN MICARDIS DOSE. UTI - pt with positive urinalysis - culture sent if appropriate. Antibiotic electronically prescribed to pt's pharmacy of choice. Pt to call if symptoms do not improve. Back pain- exercises discussed with the patient, pt to continue with antiinflammatories. Pt is to call if the symptoms do not improve or if they worsen. . Hypertension - per home reports, her blood pressure has been well controlled - continue with current medications, continue with no added salt diet. Pt has been encouraged to exercise daily. The pt has been advised to call the office if there are any acute concerns about change in blood pressure readings at home. Hyperlipidemia - pt has been counseled about appropriate diet, exercise, and need for low fat food choices. I have discussed the need for the patient to take medications as prescribed. If the patient has negative side effects from the medication, they are to CALL the office and not abruptly discontinue the medication without discussion with a practitioner in the office. We will check labs in 3-6 months for follow up on the patient's chronic medical problem and to assure normal liver response to medications. OA - pain uncontrolled - start on meloxicam, monitor creatinine. Start Norvasc (amlodipine) 5mg daily Stop the clonidine. Take 1/2 metoprolol in the morning and 1/2 in the evening. Recommend beano as needed for gas/bloating Schedule appointment for biopsy and removal of lesion on right upper arm. Monitor your blood pressure at home and record. Bring in your readings to your next appointment, or as directed. Call for chest pain, shortness of breath, headaches, or other concerns. . Hypertension - uncontrolled - the patient's medications have been modified as documented in the visit note. The patient has been counseled to cut back on salt in diet for a no added salt diet, low fat diet, start an exercise program with low weight bearing exercises and higher aerobic activity for heart health. The patient is to check blood pressure readings as an outpatient and either fax , call, or email the readings to the office next week for practicioner to review. The pt is to call for acute concerns. Gas and bloating-recommend beano prn Abnormal skin lesion-right posterior arm-recommend removal and biopsy of lesion. Cymbalta 30mg daily Call with any side effects. . Hypertension - The patient has been counseled to cut back on salt in diet for a no added salt diet, low fat diet, start an exercise program with low weight bearing exercises and higher aerobic activity for heart health. The patient is to check blood pressure readings as an outpatient and either fax , call, or email the readings to the office next week for practicioner to review. The pt is to call for acute concerns. Anxiety - the patient has uncontrolled anxiety and will benefit from medication on a daily basis to attempt control of the symptoms of anxiety ( tachycardia, overwhelming sensations, stress, insomnia, etc). Pt is aware of the risks and benefits of treament with the above medications. [id number]-[id number]-YS negative . Hypertension - well controlled - continue with current medications, continue with no added salt diet. Pt has been encouraged to exercise daily. The pt has been advised to call the office if there are any acute concerns about change in blood pressure readings at home. Dysuria - check UA . Wound Instructions - Pt was instructed to keep the wound clean, call if redness, pustular drainage, or any other acute concerns. . Subungual discoloratiion of toenail- June [address] Bee - I have discussed the case with the pt and Dr. bee and she will likely have a biopsy of the digit and avulsion of the nail. FLONASE 1 SPRAY EACH NARE DAILY PREDNISONE 20MG TWICE DAILY X 5 DAYS CALL SUNDAY IF NOT BETTER AND WE WILL SEND IN A PRESCRIPTION FOR ZITHROMAX . Sinusitis - Pt has acute infection - pain in face, maxillary region, Pt informed to use decongestant, RX given to patient, sinus rinses also recommended. Call if symptoms do not show improvement. . Hypertension - uncontrolled - the patient's medications have been modified as documented in the visit note. The patient has been counseled to cut back on salt in diet for a no added salt diet, low fat diet, start an exercise program with low weight bearing exercises and higher aerobic activity for heart health. The patient is to check blood pressure readings as an outpatient and either fax , call, or email the readings to the office next week for practicioner to review. The pt is to call for acute concerns.STOP the NORVASC START ON THE TEKTUNA AND STAY ON THE MICARDIS FOR NOW. RETURN TO CLINIC IN 3 WEEKS. CHECK BLOOD PRESSURE DAILY AND HEART RATE DAILY AND CALL THE BLOOD PRESSURE AND HEART RATE INTO CLINIC NEXT SUNDAY. CALL SOONER IF THE BLOOD PRESSURE IS ABOVE 170/90. TEKTURNA IS 150MG Edema - pt has been advised to elevate legs to prevent dependent edema, compression has been recommended to help to naturally decrease peripheral edema. Diuretic use has been discussed and pt has been instructed in appropriate use of such medication as necessary to further attempt to reduce peripheral edema. FOR THE EDEMA - GET THE COMPRESSION SOCKS. . Hypertension - well controlled - continue with current medications, continue with no added salt diet. Pt has been encouraged to exercise daily. The pt has been advised to call the office if there are any acute concerns about change in blood pressure readings at home. Edema - pt has been advised to elevate legs to prevent dependent edema, compression has been recommended to help to naturally decrease peripheral edema. Diuretic use has been discussed and pt has been instructed in appropriate use of such medication as necessary to further attempt to reduce peripheral edema. . Hypertension - well controlled - continue with current medications, continue with no added salt diet. Pt has been encouraged to exercise daily. The pt has been advised to call the office if there are any acute concerns about change in blood pressure readings at home. Anxiety - the patient has uncontrolled anxiety and will benefit from an SSRI on a daily basis to attempt control of the symptoms of anxiety (tachycardia, overwhelming sensations, stress, insomnia, etc). Pt is aware of the risks and benefits of treatment with the medication (lexapro). INCREASE THE LEXAPRO TO 10MG DAILY START THE HYDROCODONE AT 1/2 PILL TWICE DAILY . Hypertension - well controlled - continue with current medications, continue with no added salt diet. Pt has been encouraged to exercise daily. The pt has been advised to call the office if there are any acute concerns about change in blood pressure readings at home. Depression - INCREASE THE LEXAPRO TO 10MG DAILY Chronic pain - uncontrolled - START THE HYDROCODONE AT 1/2 PILL TWICE DAILY . Hypertension - well controlled - continue with current medications, continue with no added salt diet. Pt has been encouraged to exercise daily. The pt has been advised to call the office if there are any acute concerns about change in blood pressure readings at home. Hyperlipidemia - pt has been counseled about appropriate diet, exercise, and need for low fat food choices. I have discussed the need for the patient to take medications as prescribed. If the patient has negative side effects from the medication, they are to CALL the office and not abruptly discontinue the medication without discussion with a practitioner in the office. We will check labs in 3-6 months for follow up on the patient's chronic medical problem and to assure normal liver response to medications. Hypothyroidism - pt with chronic hypothyroidism, continue with current medication, will monitor pt to signs or symptoms of lack of adequate supplementation. Pt is to continue with current dose of medication unless directed otherwise. Check labs at regular intervals q 3 months or q 6 months based on previous levels of control. Chronic low back pain - supportive care at this time. . Hypertension - well controlled - continue with current medications, continue with no added salt diet. Pt has been encouraged to exercise daily. The pt has been advised to call the office if there are any acute concerns about change in blood pressure readings at home. Hypothyroidism - pt with chronic hypothyroidism, continue with current medication, will monitor pt to signs or symptoms of lack of adequate supplementation. Pt is to continue with current dose of medication unless directed otherwise. Check labs at regular intervals wither q 3 months or q 6 months based on previous levels of control. Hyperlipidemia - pt has been counseled about appropriate diet, exercise, and need for low fat food choices. I have discussed the need for the patient to take medications as prescribed. If the patient has negative side effects from the medication, they are to CALL the office and not abruptly discontinue the medication without discussion with a practitioner in the office. We will check labs in 3-6 months for follow up on the patient's chronic medical problem and to assure normal liver response to medications. PATIENT IS TO CHECK BLOOD PRESSURE AND HEART RATE AND BRING IN A RECORD OF THE READINGS INTO THE OFFICE IN 1 MONTH. . Hypertension - uncontrolled - the patient's medications have been modified as documented in the visit note. The patient has been counseled to cut back on salt in diet for a no added salt diet, low fat diet, start an exercise program with low weight bearing exercises and higher aerobic activity for heart health. The patient is to check blood pressure readings as an outpatient and either fax , call, or email the readings to the office next week for practitioner to review. The pt is to call for acute concerns. Anxiety - the patient has uncontrolled anxiety and will benefit from an SSRI on a daily basis to attempt control of the symptoms of anxiety (tachycardia, overwhelming sensations, stress, insomnia, etc). Pt is aware of the risks and benefits of treatment with the above medications. Hyperlipidemia - pt has been counseled about appropriate diet, exercise, and need for low fat food choices. I have discussed the need for the patient to take medications as prescribed. If the patient has negative side effects from the medication, they are to CALL the office and not abruptly discontinue the medication without discussion with a practitioner in the office. We will check labs in 3-6 months for follow up on the patient's chronic medical problem and to assure normal liver response to medications. Hypothyroidism - pt with chronic hypothyroidism, continue with current medication, will monitor pt to signs or symptoms of lack of adequate supplementation. Pt is to continue with current dose of medication unless directed otherwise. Check labs at regular intervals wither q 3 months or q 6 months based on previous levels of control. . Hypertension - well controlled - continue with current medications, continue with no added salt diet. Pt has been encouraged to exercise daily. The pt has been advised to call the office if there are any acute concerns about change in blood pressure readings at home. Continue warm moist compresses for the next several days. Keep clean and dry Call for fever, increased pain, or other concerns. . Labial cyst-discussed natural and expected course of this diagnosis and to alert me if symtpoms do not follow expected course, or if any worse. Patient and verbalized understanding. . Edema - pt has been advised to elevate legs to prevent dependent edema, compression has been recommended to help to naturally decrease peripheral edema. Diuretic use has been discussed and pt has been instructed in appropriate use of such medication as necessary to further attempt to reduce peripheral edema. HAS BEEN ADVISED TO TAKE AN EXTRA 1/2 LASIX TODAY AND TOMORROW TO HELP DECREASE THE EXTRA SWELLING IN HER LEGS FROM THE EXTRA SALT INTAKE FROM THIS WEEKEND. Hypertension - well controlled - continue with current medications, continue with no added salt diet. Pt has been encouraged to exercise daily. The pt has been advised to call the office if there are any acute concerns about change in blood pressure readings at home. . Hypertension - well controlled - continue with current medications, continue with no added salt diet. Pt has been encouraged to exercise daily. The pt has been advised to call the office if there are any acute concerns about change in blood pressure readings at home. Edema - pt has been advised to elevate legs to prevent dependent edema, compression has been recommended to help to naturally decrease peripheral edema. Diuretic use has been discussed and pt has been instructed in appropriate use of such medication as necessary to further attempt to reduce peripheral edema. . Hypertension - well controlled - continue with current medications, continue with no added salt diet. Pt has been encouraged to exercise daily. The pt has been advised to call the office if there are any acute concerns about change in blood pressure readings at home. Hypothyroidism - pt with chronic hypothyroidism, continue with current medication, will monitor pt to signs or symptoms of lack of adequate supplementation. Pt is to continue with current dose of medication unless directed otherwise. Check labs at regular intervals wither q 3 months or q 6 months based on previous levels of control. Pt has nocturnal hypoxemia - has been wearing oxygen at 2 liters nasal cannula for years and has recent gotten a letter that she was being denied her oxygen. She needs oxygen and my office sent the letter and office note to her oxygen supplier. I will order an overnight oxygen for Mikala. . URI - Pt advised to increase fluids, vitamin C. Discussed natural and expected course of this diagnosis and need to alert me if symtpoms do not follow expected course, or if any worse. RX sent to patient's pharmacy. . Hypertension - uncontrolled - the patient's medications have been modified as documented in the visit note. The patient has been counseled to cut back on salt in diet for a no added salt diet, low fat diet, start an exercise program with low weight bearing exercises and higher aerobic activity for heart health. The patient is to check blood pressure readings as an outpatient and either fax , call, or email the readings to the office next week for practicioner to review. The pt is to call for acute concerns. Pt started on norvasc 5 mg daily, call with blood pressures next week. Depression - improved, but not yet optimally controlled - Pt has been counseled about the diagnosis of depression, the potential causes, and risks associated with the diagnosis. The pt denies suicidal ideation, or plans. The patient has been counseled about treatment options, and understands the risks associated with treatment of depression, as well as the risks associated with NOT treating the depression. I believe the pt will benefit from continued medical intervention and she was given samples and a copay card for free 30 day trial of cymbalta 30mg. pt to call if symptoms acutely worsen. RECOMMEND SHINGLES VACCINE . Medicare Exam - today we discussed the patients past history, immunizations, preventative exams/ evaluations - colonoscopy, fecal occult blood testing, routine labs for renal function, glucose, cholesterol, osteoporosis evaluations, cardiovascular testing and cancer screenings. We have also discussed mental health and the signs/symptoms of depression. The patient was advised of home safety evaluations and the need to make sure that as the aging process continues, we need to be aware of different ways to make the home a safer place to reside. The patient has also been counseled that exercise is necessary - and of utmost importance as we age to help decrease fall risk and to maintain independence in the home. Today we discussed the need for the patient to create paperwork for Advanced directives as well as for the patient to provide this office with a copy of her DOPA paperwork for health care surrogate. Wound Instructions - Pt was instructed to keep the wound clean, use silvadene cream as directed and call with any concerns or s/s of infection. Patient and verbalized understanding of plan. Appointment with cardiology-Dr. Luther For your pain, we have given you a prescription for a Butrans patch-apply 1 patch to skin and change weekly . Hypertension - well controlled - continue with current medications, continue with no added salt diet. Pt has been encouraged to exercise daily. The pt has been advised to call the office if there are any acute concerns about change in blood pressure readings at home. Recommend follow up with double cut sawyer for clearance before knee surgery. Will get patient appt with Dr. Luther Arthritis- occasionally uncontrolled symptoms- recommend pt to take antiinflammatory as directed for pain control. Use tylenol for break through pain symptoms. Will start butrans today per Dr. Urena recommendation and montior symptoms. Appt with Dr. Joshi for possible knee replacement Edema - uncontrolled swelling. I have informed the patient of ways to naturally decrease the swelling in their lower legs - cut back on salt to 2 - 3 grams/day, the lower the sodium content of food, the healthier and less potential for swelling, however don't completely cut all sodium from diet. Pt was also counseled to elevate lower legs and/or use compression socks from toes to thighs. . Hypertension - well controlled - continue with current medications, continue with no added salt diet. Pt has been encouraged to exercise daily. The pt has been advised to call the office if there are any acute concerns about change in blood pressure readings at home. Hyperlipidemia - pt has been counseled about appropriate diet, exercise, and need for low fat food choices. I have discussed the need for the patient to take medications as prescribed. If the patient has negative side effects from the medication, they are to CALL the office and not abruptly discontinue the medication without discussion with a practitioner in the office. We will check labs in 3-6 months for follow up on the patient's chronic medical problem and to assure normal liver response to medications. Hypothyroidism - pt with chronic hypothyroidism, continue with current medication, will monitor pt to signs or symptoms of lack of adequate supplementation. Pt is to continue with current dose of medication unless directed otherwise. Check labs at regular intervals wither q 3 months or q 6 months based on previous levels of control. Knee pain - Chronic pain - symptoms - refilled hydrocodone. CONTINUE CIPRO OMEPRAZOLE DAILY TAKE YOUR LASIX DRINK ADEQUATE FLUIDS . Esophageal Reflux - the patient has been counseled against excessive intake of caffeine, spicy foods, peppermint, and cinnamon - all of which can exacerbate esophageal reflux. The patient is to take medications as prescribed and call the office if the symptoms are not improving. TAKE OMEPRAZOLE DAILY UTI-on cipro per Dr Marino which is sensitive to bacteria Constipation-increase stool softener to QOD, daily if needed Edema-take lasix every day-follow up Sunday . HTN - continue with current medications - no change at this time. Recommended follow up in about 4 weeks. Bring by the blood pressure readings in two weeks. Chronic Depression and anxiety - the pt has symptoms of chronic anxiety and depression that have been fairly well controlled since the last office visit. The pt has expected periods of exacerbation with abatement of the symptoms with change in situational exposure. No change in current medications. . Hypertension - well controlled - continue with current medications, continue with no added salt diet. Pt has been encouraged to exercise daily. The pt has been advised to call the office if there are any acute concerns about change in blood pressure readings at home. Hyperlipidemia - pt has been counseled about appropriate diet, exercise, and need for low fat food choices. I have discussed the need for the patient to take medications as prescribed. If the patient has negative side effects from the medication, they are to CALL the office and not abruptly discontinue the medication without discussion with a practitioner in the office. We will check labs in 3-6 months for follow up on the patient's chronic medical problem and to assure normal liver response to medications. Sleep Apnea - recommended pt to have sleep study - she will discuss with her . . Hypertension - well controlled - continue with current medications, continue with no added salt diet. Pt has been encouraged to exercise daily. The pt has been advised to call the office if there are any acute concerns about change in blood pressure readings at home. Arthritis-bilateraly knees- occasionally uncontrolled symptoms- recommend pt to take antiinflammatory as directed for pain control. RX for hydrocodone for breakthrough pain Hypothyroidism - pt with chronic hypothyroidism, continue with current medication, will monitor pt to signs or symptoms of lack of adequate supplementation. Pt is to continue with current dose of medication unless directed otherwise. Check labs at regular intervals wither q 3 months or q 6 months based on previous levels of control. Nocturnal hypoxemia-patient wears 2L oxygen at night and tolerating well- feeling more rested, sleeping better, and daytime fatigue improved-will fax today's note to [employer] for re-certification of oxygen. . Hypertension - well controlled - continue with current medications, continue with no added salt diet. Pt has been encouraged to exercise daily. The pt has been advised to call the office if there are any acute concerns about change in blood pressure readings at home. Arthritis-bilateral knees- occasionally uncontrolled symptoms- recommend pt to take antiinflammatory as directed for pain control. RX for hydrocodone for breakthrough pain Hypothyroidism - pt with chronic hypothyroidism, continue with current medication, will monitor pt to signs or symptoms of lack of adequate supplementation. Pt is to continue with current dose of medication unless directed otherwise. Check labs at regular intervals wither q 3 months or q 6 months based on previous levels of control. Nocturnal hypoxemia-patient wears 2L oxygen at night and tolerating well- feeling more rested, sleeping better, and daytime fatigue improved-will fax today's note to [employer] for re-certification of oxygen. . Sinusitis - Pt has acute infection - pain in face, maxillary region, Pt informed to use decongestant, RX given to patient, sinus rinses also recommended. Call if symptoms do not show improvement. Allergies - chronic - recommended pt to use allergy medication as prescribed. Pt has been counseled as to the appropriate use of the medication. Pt to call if allergy symptoms are not controlled with the medication. If using nasal spray, instructions as follows: Nasal spray- use twice daily, one spray per nostril twice daily, after 30 minutes, rinse out nose with saline spray.. Use opposite hand per nostril to spray in the nasal steroid allergy spray. . Hypertension - well controlled - continue with current medications, continue with no added salt diet. Pt has been encouraged to exercise daily. The pt has been advised to call the office if there are any acute concerns about change in blood pressure readings at home. Recommend nasal saline rinse . Sinusitis - Pt has acute infection - pain in face, maxillary region, Pt informed to use decongestant, RX given to patient, sinus rinses also recommended. Call if symptoms do not show improvement. Rocephin injection given in the offie today. Urinary Frequency-UA done today-shows positive nitrites-plan to send for culture -RX for levaquin also sent to patient's pharmacy. rocephin/kenalog start zpack today claritin get flonase otc -1 spray each nare daily . URI - Pt advised to increase fluids, vitamin C. Discussed natural and expected course of this diagnosis and need to alert me if symptoms do not follow expected course, or if any worse. RX sent to patient's pharmacy. . [id number] zpack when finished with cipro- follow up chest xray on Sunday UTI-finish cipro and repeat UA Urge incontinence -Pt has urge incontinence - the patient has been counseled about potential triggers for increase in sensation of the urgency - the pt has been counseled to avoid caffinated products, spicy products , and to urinate every 2-3 hours to prevent the incontinence associated with the urgency. Pt is to continue with current treatment plan and call if symptoms worsen. Knee pain- recommended pt to use Pennsaid drops for knee pain and to see Dr. Joshi for further treatment recommendations.. Hypertension - well controlled - continue with current medications, continue with no added salt diet. Pt has been encouraged to exercise daily. The pt has been advised to call the office if there are any acute concerns about change in blood pressure readings at home. Edema-stable, actually improved from usual, continue with current treatment. Urge incontinence -Pt has urge incontinence - the patient has been counseled about potential triggers for increase in sensation of the urgency - the pt has been counseled to avoid caffinated products, spicy products, and to urinate every 2-3 hours to prevent the incontinence associated with the urgency. Pt is to continue with current treatment plan and call if symptoms worsen. Knee pain- recommended pt to use Pennsaid drops for knee pain and to see Dr. Joshi for further treatment recommendations. . Allergies - chronic - recommended pt to use allergy medication as prescribed. Pt has been counseled as the the appropriate use of the medication. Pt to call if allergy symptoms are not controlled with the medication. Kenalog injection today in the office. Thrush-RX for nystatin swish and swallow
[2018-12-27] MEDS: TROPICAMIDE 1% OPH SOLN (MYDRIACYL) 15 ML BTL OU PRN ×4 (10:04→10:13)
[2018-12-27] MEDS: TETRACAINE 0.5% OPHTH SOLN 4 ML BTL (SINGLE DOSE ONLY) OU PRN ×4 (10:04→10:13)
[2018-12-27] MEDS: PHENYLEPHRINE 10% OPHTH (NEO-SYN) 5 ML BTL OU PRN ×4 (10:04→10:13)
--- OUTSIDE RECORDS SUMMARY | 2018-12-27 10:08 | XMS REPORT | CCD ---
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 Name Role Phone [facility] Unavailable CCM Unavailable Summary Purpose Interface Exchange Insurance Providers Payer name Policy type / Coverage type Covered alliance party ID Effective Begin Date Effective End Date WPS Medicare Part B Medicare Part B [id number] 2018 Unknown AARP Medicare Part B [id number] Unknown Family history Son Diagnosis Age At [...] status Unknown 04/19/[address]: 1086991 Quit over 10 years ago 40 pack/year [...] Start Date Stop Date Status Fill Instructions Crestor 10 mg tablet RxNorm: 660771 TAKE 1 TABLET BY MOUTH ON SUNDAY, SUNDAY, AND Sunday12/03/2018 05/31/2019 Active Atacand 16 mg tablet RxNorm: 197908 1 Tablet(s) PO daily 201810/31/2019 Active replaces benicar Atacand 16 mg tablet RxNorm: 247405 1 Tablet(s) PO daily 201811/05/2018 Inactive replaces benicar meloxicam 15 mg tablet RxNorm: 537615 TAKE ONE TABLET BY MOUTH DAILY 10/08/2018 03/30/2020 Active ProctoCream-HC 2.5 % rectal cream with applicator RxNorm: 554538 APPLY TO AFFECTED AREAS DIRECTED RTL 10/01/2018 No Stop Date Active Cartia XT 240 mg capsule,extended release RxNorm: 411374 TAKE ONE CAPSULE BY MOUTH DAILY 09/23/2018 09/17/2019 Active Singulair 10 mg tablet RxNorm: 368511 TAKE ONE TABLET BY MOUTH EVERY DAY 09/06/2018 10/30/2019 Active Klor-Con 10 mEq tablet,extended release RxNorm: 424153 TAKE ONE TABLET BY MOUTH TWICE A DAY 09/06/2018 06/02/2019 Active Xanax 0.25 mg tablet RxNorm: 173626 1-2 Tablet(s) PO QHS as needed insomnia 08/26/2018 11/23/2018 Inactive Voltaren 1 % topical gel RxNorm: 257718 APPLY TWO GRAMS TOPICALLY FOUR TIMES A DAY BILATERAL KNEES AND LOWER BACK 06/26/2018 09/23/2018 Inactive Lasix 40 mg tablet RxNorm: 201231 TAKE ONE TABLET BY MOUTH DAILY 06/20/2018 12/16/2018 Active Voltaren 1 % topical gel RxNorm: 109951 2 Gram(s) TOP QID bilateral knees and low back 05/29/2018 06/25/2018 Inactive Synthroid 50 mcg tablet RxNorm: 926133 Tablet(s) TAKE ONE TABLET BY MOUTH DAILY 05/17/2018 11/12/2018 Inactive Synthroid 50 mcg tablet RxNorm: 344376 TAKE ONE TABLET BY MOUTH DAILY 05/16/2018 05/16/2018 Inactive hydrocodone 5 mg-acetaminophen 325 mg tablet RxNorm: 029372 1/2 Tablet(s) PO QID as needed 05/15/2018 06/13/2018 Inactive Keflex 500 mg capsule RxNorm: 688203 1 Capsule(s) PO TID PRN 11/201705/06/2018 Inactive Silvadene 1 % topical cream RxNorm: 486214 1 Application TOP BID 04/30/2018 05/09/2018 Inactive Anusol-HC 25 mg rectal suppository RxNorm: 3032139 1 Suppository PRN INSERT 1 RECTALLY DAILY NEEDED 04/25/2018 No Stop Date Active Colace 100 mg capsule RxNorm: 1098930 1 Capsule(s) PO daily as needed 04/25/2018 No Stop Date Active Silvadene 1 % topical cream RxNorm: 393194 1 Application TOP BID 04/25/2018 04/29/2018 Inactive meloxicam 15 mg tablet RxNorm: 267206 1 Tablet(s) PO daily TAKE ONE TABLET BY MOUTH ONE TIME A DAY 04/25/20182018 Inactive Benicar 40 mg tablet RxNorm: 633195 TAKE ONE TABLET BY MOUTH DAILY 04/04/2018 11/05/2018 Inactive Xanax 0.25 mg tablet RxNorm: 845491 1-2 Tablet(s) PO QHS as needed insomnia 03/07/2018 06/04/2018 Inactive Lasix 40 mg tablet RxNorm: 711162 TAKE ONE TABLET BY MOUTH DAILY 01/07/2018 06/19/2018 Inactive Crestor 10 mg tablet RxNorm: 871715 TAKE 1 TABLET BY MOUTH ON SUNDAY, SUNDAY, AND Sunday11/20/2017 05/18/2018 Inactive Synthroid 50 mcg tablet RxNorm: 608061 TAKE ONE TABLET BY MOUTH DAILY 11/14/2017 05/12/2018 Inactive Diflucan 150 mg tablet RxNorm: 783131 1 Tablet(s) PO daily 09/25/2017 Inactive cefdinir 300 mg capsule RxNorm: 732749 1 Capsule(s) PO BID 09/25/2017 Inactive Cartia XT 240 mg capsule,extended release RxNorm: 932307 TAKE ONE CAPSULE BY MOUTH DAILY 09/12/2017 09/06/2018 Inactive prednisone 20 mg tablet RxNorm: 496702 2 Tablet(s) PO daily 12/201709/04/2017 Inactive Xanax 0.25 mg tablet RxNorm: 768753 1-2 Tablet(s) PO QHS as needed insomnia 08/28/2017 11/24/2017 Inactive Keflex 500 mg capsule RxNorm: 085640 1 Capsule(s) PO TID 201708/27/2017 Inactive Keflex 500 mg capsule RxNorm: 630686 1 Capsule(s) PO TID 201709/03/2017 Inactive Klor-Con 10 mEq tablet,extended release RxNorm: 882561 TAKE ONE TABLET BY MOUTH TWICE A DAY 08/23/2017 08/17/2018 Inactive cefdinir 300 mg capsule RxNorm: 274744 1 Capsule(s) PO BID 08/12/2017 Inactive cefdinir 300 mg capsule RxNorm: 979308 1 Capsule(s) PO BID 08/19/2017 Inactive Kenalog 40 mg/mL suspension for injection RxNorm: 6287975 1 Milliliter(s) Inj 08/09/2017 08/09/2017 Inactive ceftriaxone 500 mg solution for injection RxNorm: 8572213 Inj 08/09/2017 08/09/2017 Inactive Zithromax Z-Hebert 250 mg tablet RxNorm: 420133 1 Tablet(s) PO UD 08/09/2017 08/13/2017 Inactive Singulair 10 mg tablet RxNorm: 517189 TAKE ONE TABLET BY MOUTH EVERY DAY 08/03/2017 09/05/2018 Inactive Xanax 0.25 mg tablet RxNorm: 359762 1-2 Tablet(s) PO QHS as needed insomnia 07/25/2017 05/28/2018 Inactive Benicar 40 mg tablet RxNorm: 869385 TAKE ONE TABLET BY MOUTH DAILY 07/09/2017 04/03/2018 Inactive Lasix 40 mg tablet RxNorm: TAKE ONE TABLET BY MOUTH DAILY 07/09/2017 01/04/2018 Inactive Synthroid 50 mcg tablet RxNorm: 867491 1 Tablet(s) PO daily TAKE ONE TABLET BY MOUTH DAILY 05/21/2017 11/13/2017 Inactive Must be name brand Lasix 40 mg tablet RxNorm: TAKE ONE TABLET BY MOUTH DAILY 04/12/2017 07/08/2017 Inactive Zithromax Z-Hebert 250 mg tablet RxNorm: 794301 1 Tablet(s) PO UD 02/05/2017 02/09/2017 Inactive start with finished with cipro Cipro 500 mg tablet RxNorm: 643945 1 Tablet(s) PO BID 201602/07/2017 Inactive prednisone 20 mg tablet RxNorm: 480664 1 Tablet(s) PO BID 01/1501/19/2017 Inactive take 1 in the morning and 1 at noon calcium carbonate 600 mg calcium (1,500 mg) tablet RxNorm: 231630 1 Tablet(s) PO daily 01/04/2017 No Stop Date Active Kenalog 40 mg/mL suspension for injection RxNorm: 1517641 1 Milliliter(s) Inj 01/04/2017 01/04/2017 Inactive Anusol-HC 25 mg rectal suppository RxNorm: 2515246 1 Suppository PRN INSERT 1 RECTALLY DAILY NEEDED 01/04/20172016 Inactive Lasix 40 mg tablet RxNorm: TAKE ONE TABLET BY MOUTH DAILY 12/20/2016 04/11/2017 Inactive Cartia XT 240 mg capsule,extended release RxNorm: 146990 TAKE ONE CAPSULE BY MOUTH DAILY 12/20/2016 09/11/2017 Inactive Synthroid 50 mcg tablet RxNorm: 926922 1 Tablet(s) PO daily TAKE ONE TABLET BY MOUTH DAILY 11/27/2016 05/20/2017 Inactive Must be name brand meloxicam 15 mg tablet RxNorm: 606424 Tablet(s) TAKE ONE TABLET BY MOUTH ONE TIME A DAY 11/27/2016 06/24/2017 Inactive Crestor 10 mg tablet RxNorm: 368815 TAKE 1 TABLET BY MOUTH ON SUNDAY, SUNDAY, AND Sunday11/13/2016 10/14/2017 Inactive Lexapro 10 mg tablet RxNorm: 011670 1 Tablet(s) PO daily 201601/03/2017 Inactive please make sure that her RX for lexapro is a 10mg dose - delete the 5mg lexapro pill - this is FYI Klor-Con 10 mEq tablet,extended release RxNorm: 108170 TAKE ONE TABLET BY MOUTH TWICE A DAY 08/29/2016 02/24/2017 Inactive Kenalog 40 mg/mL suspension for injection RxNorm: 5512882 Milliliter(s) Inj 08/23/2016 08/23/2016 Inactive cefdinir 300 mg capsule RxNorm: 874256 1 Capsule(s) PO BID 08/28/2016 Inactive take probiotic while on abx Zithromax Z-Hebert 250 mg tablet RxNorm: 573524 1 Tablet(s) PO UD 08/11/2016 09/06/2016 Inactive Z PACK DIRECTED Lexapro 5 mg tablet RxNorm: 561377 TAKE ONE TABLET BY MOUTH EVERY EVENING 07/18/2016 09/06/2016 Inactive Singulair 10 mg tablet RxNorm: 656304 TAKE ONE TABLET BY MOUTH EVERY DAY 07/17/2016 08/02/2017 Inactive Benicar 40 mg tablet RxNorm: 250630 TAKE ONE TABLET BY MOUTH DAILY 07/17/2016 07/08/2017 Inactive Lexapro 10 mg tablet RxNorm: 771484 1 Tablet(s) PO daily 201509/06/2016 Inactive diltiazem ER 180 mg capsule,extended release RxNorm: 945383 TAKE ONE CAPSULE BY MOUTH DAILY 06/15/2016 07/05/2016 Inactive Lexapro 10 mg tablet RxNorm: 902881 1 Tablet(s) PO daily 201506/15/2016 Inactive gabapentin 600 mg tablet RxNorm: 665133 TAKE ONE TABLET BY MOUTH EVERY NIGHT AT BEDTIME NEEDED 04/27/2016 04/11/2017 Inactive Cartia XT 240 mg capsule,extended release RxNorm: 418468 1 Capsule(s) PO daily TAKE ONE CAPSULE BY MOUTH ONCE A DAY 04/17/2016 12/19/2016 Inactive Benicar 40 mg tablet RxNorm: 180113 1 Tablet(s) PO daily 201507/16/2016 Inactive she can do 90 days if she wants to Lexapro 5 mg tablet RxNorm: 648302 1 Tablet(s) PO QPM 201506/07/2016 Inactive Synthroid 50 mcg tablet RxNorm: 978081 1 Tablet(s) PO daily TAKE ONE TABLET BY MOUTH DAILY 01/18/2016 07/15/2016 Inactive Colace 100 mg capsule RxNorm: 0893410 1 Capsule(s) PO daily 04/24/2018 Inactive hydrocodone 5 mg-acetaminophen 325 mg tablet RxNorm: 367624 1/2 Tablet(s) PO QID as needed 01/18/2016 02/16/2016 Inactive Synthroid 50 mcg tablet RxNorm: 799922 Tablet(s) TAKE ONE TABLET BY MOUTH DAILY 12/23/2015 01/17/2016 Inactive Benicar 40 mg tablet RxNorm: 108177 1 Tablet(s) PO daily 201512/12/2015 Inactive Benicar 40 mg tablet RxNorm: 065820 1 Tablet(s) PO daily 201504/10/2016 Inactive meloxicam 15 mg tablet RxNorm: 379996 TAKE ONE TABLET BY MOUTH ONE TIME A DAY 11/12/2015 06/08/2016 Inactive meloxicam 15 mg tablet RxNorm: 744431 Tablet(s) TAKE ONE TABLET BY MOUTH ONE TIME A DAY 11/11/2015 11/11/2015 Inactive Lasix 40 mg tablet RxNorm: 187187 Tablet(s) TAKE ONE TABLET BY MOUTH EVERY DAY 10/19/2015 12/19/2016 Inactive diltiazem ER 180 mg capsule,extended release RxNorm: 399897 1 Capsule(s) daily TAKE ONE CAPSULE BY MOUTH ONCE A DAY 09/27/2015 04/16/2016 Inactive Crestor 10 mg tablet RxNorm: 315673 1 Tablet(s) PO Sun09/17/2015 07/12/2016 Inactive [SAVINGS FOR UNINSURED PATIENTS -- BIN:[id number], PCN: ASPROD1, Group: [id number], ID# [id number], Process claim through [employer], for questions: [phone]. THIS IS NOT INSURANCE.] hydrocodone 5 mg-acetaminophen 325 mg tablet RxNorm: 250932 1-2 Tablet(s) PO Q6 PRN 09/09/2015 10/08/2015 Inactive Micardis 80 mg tablet RxNorm: 631379 1 Tablet(s) PO daily TAKE ONE TABLET BY MOUTH DAILY 08/23/2015 12/12/2015 Inactive Klor-Con 10 mEq tablet,extended release RxNorm: 142997 Tablet(s) TAKE ONE TABLET BY MOUTH TWICE A DAY 08/23/20152015 Inactive Synthroid 50 mcg tablet RxNorm: 785042 TAKE ONE TABLET BY MOUTH DAILY 07/06/2015 12/22/2015 Inactive meloxicam 15 mg tablet RxNorm: 451332 TAKE ONE TABLET BY MOUTH ONE TIME A DAY 06/22/2015 11/10/2015 Inactive Singulair 10 mg tablet RxNorm: 746767 TAKE ONE TABLET BY MOUTH EVERY DAY 05/18/2015 07/16/2016 Inactive Micardis 80 mg tablet RxNorm: 453274 TAKE ONE TABLET BY MOUTH DAILY 02/22/2015 05/04/2015 Inactive gabapentin 600 mg tablet RxNorm: 383889 1 Tablet(s) PO HS as needed 01/15/2015 01/09/2016 Inactive [SAVINGS FOR NON-COVERED DRUGS -- BIN:840296, PCN: ASPROD1, Group : [id number], ID# [id number], Questions: . THIS IS NOT INSURANCE.] diltiazem ER 180 mg capsule,extended release RxNorm: 721078 TAKE ONE CAPSULE BY MOUTH ONCE A DAY 01/07/2015 09/26/2015 Inactive meloxicam 15 mg tablet RxNorm: 386892 TAKE ONE TABLET BY MOUTH ONE TIME A DAY 11/09/2014 05/07/2015 Inactive gabapentin 600 mg tablet RxNorm: 050303 1 Tablet(s) PO HS as needed 10/13/2014 01/14/2015 Inactive [SAVINGS FOR UNINSURED PATIENTS -- BIN:[id number], PCN: ASPROD1, Group: [id number], ID# [id number], Process claim through [employer], for questions: [phone]. THIS IS NOT INSURANCE.] omeprazole 20 mg tablet,delayed release RxNorm: 304538 1 Tablet(s) PO daily 10/13/2014 11/11/2014 Inactive Synthroid 50 mcg tablet RxNorm: 837562 TAKE ONE TABLET BY MOUTH EVERY DAY 10/12/2014 01/09/2015 Inactive Synthroid 50 mcg tablet RxNorm: 026331 Tablet(s) TAKE ONE TABLET BY MOUTH EVERY DAY 10/12/2014 10/11/2014 Inactive [SAVINGS FOR UNINSURED PATIENTS -- BIN:233022, PCN: ASPROD1, Group: [id number], ID# [id number], Process claim through [employer], for questions: . THIS IS NOT INSURANCE.] Lasix 40 mg tablet RxNorm: 096637 Tablet(s) PO TAKE ONE TABLET BY MOUTH TWICE A DAY FOR 3 DAYS, THEN RESUME ONE DAILY EXCEPT ON WEDNESDAYS AND FRIDAYS TAKE ONE TWICE DAILY 09/22/2014 05/28/2018 Inactive [SAVINGS FOR UNINSURED PATIENTS -- BIN: 857106, PCN: ASPROD1, Group: [id number], ID# [id number], Process claim through [employer] , for questions: . THIS IS NOT INSURANCE.] Lasix 40 mg tablet RxNorm: 493868 TAKE ONE TABLET BY MOUTH EVERY DAY 09/22/2014 10/18/2015 Inactive Crestor 10 mg tablet RxNorm: 560539 1 Tablet(s) PO Sun08/28/2014 04/24/2015 Inactive [SAVINGS FOR UNINSURED PATIENTS -- BIN:282008, PCN: ASPROD1, Group: [id number], ID# [id number], Process claim through [employer], for questions: [phone]. THIS IS NOT INSURANCE.] Crestor 10 mg tablet RxNorm: 048072 1 Tablet(s) PO Sun08/28/2014 08/27/2014 Inactive [SAVINGS FOR UNINSURED PATIENTS -- BIN:550098, PCN: ASPROD1, Group: [id number], ID# [id number], Process claim through [employer], for questions: [phone]. THIS IS NOT INSURANCE.] Micardis 80 mg tablet RxNorm: 199713 TAKE ONE TABLET BY MOUTH EVERY DAY 08/24/2014 12/21/2014 Inactive Zithromax Z-Hebert 250 mg tablet RxNorm: 603079 Tablet(s) PO UD 08/18/2014 Inactive 2 tabs day 1, 1 tabs days 2-5 Anusol-HC 25 mg suppository RxNorm: 6823589 INSERT 1 RECTALLY DAILY NEEDED 07/13/2014 10/10/2014 Inactive Klor-Con 10 mEq tablet,extended release RxNorm: 939200 TAKE ONE TABLET BY MOUTH TWICE A DAY 06/18/2014 12/14/2014 Inactive Lomotil 2.5 mg-0.025 mg tablet RxNorm: 5712505 1 Tablet(s) PO PRN after each loose stool max 8 per day 06/15/201410/12 Inactive one after each loose bm limit 8 per day albuterol sulfate HFA 90 mcg/actuation aerosol inhaler RxNorm: 4025982 1 or2 Puff( s) INH Q4 PRN as needed 05/11/20142013 Inactive albuterol sulfate HFA 90 mcg/actuation aerosol inhaler RxNorm: 2377150 1 or2 Puff( s) INH Q4 PRN as needed 05/11/20142016 Inactive Premarin 0.625 mg/gram vaginal cream RxNorm: 451324 1/2 Gram(s) VAG every other day 05/11/2014 12/06/2014 Inactive Premarin 0.625 mg/gram vaginal cream RxNorm: 787370 1/2 Gram(s) VAG every other day 05/11/2014 05/10/2014 Inactive cefdinir 300 mg capsule RxNorm: 286036 1 Capsule(s) PO BID 06/201405/16/2014 Inactive Rocephin 500 mg solution for injection RxNorm: 519755 1 Milliliter(s) Inj 05/07/2014 05/07/2014 Inactive Singulair 10 mg tablet RxNorm: 761497 TAKE ONE TABLET BY MOUTH EVERY DAY 04/30/2014 10/12/2014 Inactive meloxicam 15 mg tablet RxNorm: 009695 1 Tablet(s) PO daily 11/08/2014 Inactive Crestor 10 mg tablet RxNorm: 073377 1 Tablet(s) PO Sun TAKE ONE TABLET BY MOUTH EVERY DAY 04/16/2014 08/27/2014 Inactive Synthroid 50 mcg tablet RxNorm: 957316 TAKE ONE TABLET BY MOUTH EVERY DAY 04/02/2014 09/28/2014 Inactive diltiazem ER 180 mg capsule,extended release RxNorm: 120043 1 Capsule(s) PO daily 01/05/2014 12/30/2014 Inactive Pennsaid 1.5 % topical drops RxNorm: 350367 Drop(s) TOP APPLY 15 - 20 DROPS TOPICALLY FOUR TIMES A DAY 12/29/2013 Inactive Rocephin 500 mg solution for injection RxNorm: 736364 Inj 12/2612/26/2013 Inactive Kenalog 40 mg/mL suspension for injection RxNorm: 7916117 Milliliter(s) Inj 12/26/2013 12/26/2013 Inactive Micardis 80 mg tablet RxNorm: 974467 Tablet(s) PO TAKE ONE TABLET BY MOUTH EVERY DAY 12/15/2013 08/23/2014 Inactive nystatin 100,000 unit/mL oral suspension RxNorm: 584890 4 Unit(s) PO QID swish and swallow 11/12/2013 12/09/2013 Inactive Kenalog 40 mg/mL suspension for injection RxNorm: 5815004 Milliliter(s) Inj 11/12/2013 11/12/2013 Inactive Lasix 40 mg tablet RxNorm: 603808 Tablet(s) PO TAKE ONE TABLET BY MOUTH TWICE A DAY FOR 3 DAYS, THEN RESUME ONE DAILY EXCEPT ON WEDNESDAYS AND FRIDAYS TAKE ONE TWICE DAILY 10/30/2013 09/21/2014 Inactive Lasix 40 mg tablet RxNorm: 399710 1 Tablet(s) PO daily 201310/29/2013 Inactive Rocephin 500 mg solution for injection RxNorm: 485309 1 Milliliter(s) Inj 10/09/2013 10/09/2013 Inactive metoprolol succinate ER 25 mg tablet,extended release 24 hr RxNorm: 864901 Tablet (s) PO TAKE ONE TABLET BY MOUTH EVERY DAY 10/02/2013 01/06/2014 Inactive metoprolol succinate ER 25 mg tablet,extended release 24 hr RxNorm: 449267 Tablet (s) PO TAKE ONE TABLET BY MOUTH EVERY DAY 08/04/2013 10/01/2013 Inactive Synthroid 50 mcg tablet RxNorm: 475241 Tablet(s) PO TAKE ONE TABLET BY MOUTH EVERY DAY 07/14/2013 04/01/2014 Inactive gabapentin 600 mg tablet RxNorm: 299427 1 Tablet(s) PO Q8 PRN 06/11/2013 06/11/2013 Inactive gabapentin 600 mg tablet RxNorm: 878870 1 Tablet(s) PO Q8 PRN 06/11/2013 03/07/2014 Inactive Neurontin 600 mg tablet RxNorm: 404768 1 Tablet(s) PO Q8 PRN 06/11/2013 Inactive Anusol-HC 25 mg suppository RxNorm: 5157167 Suppository RTL INSERT 1 RECTALLY DAILY NEEDED 04/24/2013 07/12/2014 Inactive metoprolol succinate ER 25 mg tablet,extended release 24 hr RxNorm: 612854 1 Tablet(s) PO daily 04/21/2013 08/03/2013 Inactive Premarin 0.625 mg/gram Vaginal Cream RxNorm: 840677 1/2 Gram(s) VAG every other day 04/03/2013 10/29/2013 Inactive Klor-Con 10 mEq tablet,extended release RxNorm: 787479 1 Tablet(s) PO daily 03/26/2013 03/20/2014 Inactive Klor-Con 10 mEq tablet,extended release RxNorm: 908156 1 Tablet(s) PO BID 03/24/2013 03/23/2013 Inactive Klor-Con 10 mEq tablet,extended release RxNorm: 773640 1 Tablet(s) PO BID 03/24/2013 03/25/2013 Inactive Klor-Con 10 mEq tablet,extended release RxNorm: 196515 1 Tablet(s) PO BID 03/24/2013 03/23/2013 Inactive Augmentin 875 mg-125 mg tablet RxNorm: 342471 1 Tablet(s) PO BID 03/12/2013 03/18/2013 Inactive Augmentin 875 mg-125 mg tablet RxNorm: 959132 1 Tablet(s) PO BID 03/12/2013 03/11/2013 Inactive ciprofloxacin 500 mg tablet RxNorm: 845231 1 Tablet(s) PO BID 03/11/2013 03/17/2013 Inactive ciprofloxacin 500 mg tablet RxNorm: 172025 1 Tablet(s) PO BID 03/11/2013 03/10/2013 Inactive Crestor 10 mg tablet RxNorm: 958934 1 Tablet(s) PO daily 201202/09/2013 Inactive Crestor 10 mg tablet RxNorm: 217768 Tablet(s) PO TAKE ONE TABLET BY MOUTH EVERY DAY 02/10/2013 04/15/2014 Inactive Singulair 10 mg tablet RxNorm: 560054 Tablet(s) PO TAKE ONE TABLET BY MOUTH EVERY DAY 02/04/2013 04/29/2014 Inactive Kenalog 40 mg/mL Susp for Injection RxNorm: 8641562 1 Milliliter(s) Inj 11/21/2012 11/21/2012 Inactive Pennsaid 1.5 % topical drops RxNorm: 334951 15-20 Drop(s) TOP QID 10/28/2012 11/21/2013 Inactive Micardis 80 mg tablet RxNorm: 160740 1 Tablet(s) PO daily 201210/22/2013 Inactive put this on file please, quantitiy increase Pennsaid 1.5 % Topical Drops RxNorm: 213781 15-20 Drop(s) TOP QID 10/28/2012 10/27/2012 Inactive diltiazem ER 180 mg capsule,extended release RxNorm: 474709 1 Capsule(s) PO daily 10/14/2012 10/08/2013 Inactive Pyridium 200 mg tablet RxNorm: 0254864 1 Tablet(s) PO Q8 PRN 10/12/2014 Inactive Flagyl 500 mg tablet RxNorm: 828302 1 Tablet(s) PO TID 201209/10/2012 Inactive Macrobid 100 mg capsule RxNorm: 1899524 1 Capsule(s) PO BID 03/201309/02/2012 Inactive Macrobid 100 mg capsule RxNorm: 7751685 1 Capsule(s) PO BID 03/201309/09/2012 Inactive sulfamethoxazole-trimethoprim 800 mg-160 mg tablet RxNorm: 806534 1 Tablet(s) PO BID 08/05/2012 08/14/2012 Inactive Lasix 40 mg tablet RxNorm: 034425 1 Tablet(s) PO BID pt is taking extra lasix x 3 days, then every sunday and sunday take two lasix pills. 07/15/2012 07/09/2013 Inactive Synthroid 50 mcg tablet RxNorm: 302986 1 Tablet(s) PO daily 07/09/2013 Inactive do not substitute the generic levothyroxine for the synthroid brand name.....she needs brand name synthroid. Klor-Con 10 mEq tablet,extended release RxNorm: 332161 1 Tablet(s) PO BID 07/15/2012 03/23/2013 Inactive Singulair 10 mg tablet RxNorm: 999926 1 Tablet(s) PO daily 02/03/2013 Inactive Lexapro 10 mg tablet RxNorm: 072725 1/2 Tablet(s) PO daily 06/03/2013 Inactive ProAir HFA 90 mcg/actuation Aerosol Inhaler RxNorm: 340561 2 INH Q6 PRN 04/23/2012 01/17/2016 Inactive Lexapro 10 mg tablet RxNorm: 563598 1/2 Tablet(s) PO daily 05/09/2012 Inactive metoprolol succinate ER 50 mg tablet,extended release 24 hr RxNorm: 476098 1 Tablet(s) PO daily 04/09/2012 04/09/2012 Inactive Klor-Con 10 10 mEq tablet,extended release RxNorm: 735366 1 Tablet(s) PO daily 04/01/2012 07/14/2012 Inactive metoprolol succinate ER 50 mg tablet,extended release 24 hr RxNorm: 057339 1/2 Tablet(s) PO BID 03/11/2012 04/08/2012 Inactive clonidine 0.1 mg Tab RxNorm: 274774 1 Tablet(s) PO BID 201103/12/2012 Inactive clonidine 0.1 mg Tab RxNorm: 722037 1 Tablet(s) PO BID 201102/18/2012 Inactive Micardis 80 mg Tab RxNorm: 240755 1 Tablet(s) PO daily 201102/13/2012 Inactive Micardis 80 mg tablet RxNorm: 755785 1 Tablet(s) PO daily 201110/27/2012 Inactive Synthroid 50 mcg tablet RxNorm: 578239 1 Tablet(s) PO daily 07/14/2012 Inactive Tekturna 300 mg Tab RxNorm: 5773222 1 Tablet(s) PO daily 02/1103/12/2012 Inactive Lasix 40 mg Tab RxNorm : 564500 1 Tablet(s) PO daily 12/18/2011 12/17/2011 Inactive Lasix 40 mg tablet RxNorm: 220319 1 Tablet(s) PO daily 201107/14/2012 Inactive Anusol-HC 25 mg Suppository RxNorm: 3229289 1 Suppository RTL QDAY PRN 12/04/2011 04/19/2012 Inactive lactobacillus acidophilus Cap RxNorm: 1 Capsule(s) PO BID 11/20/2011 Inactive lactobacillus acidophilus Cap RxNorm: 1 Capsule(s) PO BID 11/20/2011 Inactive Cipro 500 mg Tab RxNorm: 162682 1 Tablet(s) PO BID 201103/12/2012 Inactive lactobacillus acidophilus Cap RxNorm: 1 Capsule(s) PO BID 11/27/2011 Inactive lactobacillus acidophilus Cap RxNorm: 1 Capsule(s) PO BID 11/20/2011 Inactive Cipro 500 mg Tab RxNorm: 202070 1 Tablet(s) PO BID 201111/20/2011 Inactive Lexapro 10 mg Tab RxNorm: 864508 1 Tablet(s) PO daily 201111/12/2011 Inactive Lexapro 10 mg tablet RxNorm: 558681 1 Tablet(s) PO daily 201104/18/2012 Inactive amlodipine 10 mg Tab RxNorm: 497855 1 Tablet(s) PO daily 201112/03/2011 Inactive amlodipine 5 mg Tab RxNorm: 281427 1 Tablet(s) PO daily 201112/04/2011 Inactive Rocephin 500 mg Solution for Injection RxNorm: 7170036 Inj 11/201109/20/2011 Inactive metoprolol succinate ER 25 mg 24 hr Tab RxNorm: 098938 1 Tablet(s) PO QHS 08/30/2011 09/20/2011 Inactive Ambien 10 mg Tab RxNorm: 988787 1 Tablet(s) PO HS PRN 08/3004/19/2012 Inactive Augmentin 875 mg-125 mg Tab RxNorm: 995115 1 Tablet(s) PO BID 08/25/2011 09/20/2011 Inactive Augmentin 875 mg-125 mg Tab RxNorm: 299151 1 Tablet(s) PO BID 08/25/2011 08/24/2011 Inactive Rocephin 500 mg Solution for Injection RxNorm: 8930536 Inj 08/23/2011 Inactive Levaquin 500 mg Tab RxNorm: 964854 1 Tablet(s) PO daily 201008/30/2011 Inactive chlordiazepoxide-clidinium 5 mg-2.5 mg Cap RxNorm: 884904 1 Capsule(s) PO BID 07/10/2011 04/19/2012 Inactive q 12 hours prn metoprolol succinate ER 100 mg 24 hr Tab RxNorm: 958228 1 Tablet(s) PO daily 05/29/2011 03/12/2012 Inactive Synthroid 50 mcg Tab RxNorm: 304106 1 Tablet(s) PO daily 201008/12/2011 Inactive Ambien CR 12.5 mg Tab RxNorm: 560163 1 Tablet(s) PO HS PRN 05/0908/30/2011 Inactive Ambien 10 mg Tab RxNorm: 916225 1 Tablet(s) PO QHS 201006/07/2011 Inactive Nexium 40 mg Cap RxNorm: 049877 1 Capsule(s) PO daily 05/0403/12/2012 Inactive the patient had tried pepcid, otc priolosec, RX omperazole, failed them all Bactrim DS 800 mg-160 mg Tab RxNorm: 182336 1 Tablet(s) PO BID 04/19/2011 08/30/2011 Inactive triamcinolone acetonide 40 mg/mL Susp for Injection RxNorm: 4146913 1 Milliliter(s ) Inj UD 04/19/2011 04/19/2011 Inactive aspirin 81 mg Tab, Delayed Release RxNorm: 999449 1 Tablet(s) PO daily No Start Date Active 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 Device RxNorm: Miscellaneous QHS sleep apnea, 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 No Start Date Active Cymbalta 30 mg Cap RxNorm: 401359 1 Capsule(s) PO daily No Start Date 03/12/2012 Inactive Nexium 40 mg Cap RxNorm: 749379 Capsule(s) PO No Start Date 05/03/2011 Inactive Benadryl 25 mg capsule RxNorm: 3977888 1 Capsule(s) PO QHS No Start Date 01/03/2017 Inactive Klor-Con 10 10 mEq tablet,extended release RxNorm: 359596 1 Tablet(s) PO daily No Start Date 03/31/2012 Inactive Metamucil Oral RxNorm : Oral No Start Date 10/12/2014 Inactive amlodipine 10 mg Tab RxNorm: 971386 1 Tablet(s) PO daily No Start Date 10/08/2011 Inactive Norvasc 5 mg tablet RxNorm: 869913 1 Tablet(s) PO daily No Start Date 10/12/2014 Inactive Lasix 40 mg Tab RxNorm : 610516 1 Tablet(s) PO daily No Start Date 12/17/2011 Inactive diltiazem ER (XR/XT) 240 mg capsule,extended release, controlled RxNorm: 063965 1 Capsule(s) PO daily No Start Date Inactive Centrum Silver Ultra Women's oral RxNorm: 71267 oral No Start Date 04/24/2018 Inactive Synthroid 50 mcg Tab RxNorm: 276415 1 Tablet(s) PO daily No Start Date 05/14/2011 Inactive Flagyl 500 mg tablet RxNorm: 274659 1 Tablet(s) PO No Start Date 09/03/2012 Inactive one after each loose bm limit 8 per day Boniva 150 mg Tab RxNorm: 640387 1 Tablet(s) PO UD No Start Date 08/30/2011 Inactive monthly Singulair 10 mg tablet RxNorm: 994566 1 Tablet(s) PO daily No Start Date 06/11/2012 Inactive folic acid Oral RxNorm : Oral No Start Date 03/12/2012 Inactive potassium chloride ER 10 mEq tablet,extended release RxNorm: 617695 1 Tablet(s) PO daily No Start Date 01/03/2017 Inactive Probiotic & Acidophilus oral RxNorm: oral No Start Date 04/24/2018 Inactive Librium 10 mg Cap RxNorm: 064278 Capsule(s) PO UD No Start Date 03/12/2012 Inactive q 12 hours prn Crestor 10 mg tablet RxNorm: 949251 1 Tablet(s) PO daily No Start Date 02/09/2013 Inactive multivitamin Cap RxNorm: 1 Capsule(s) PO daily No Start Date 01/17/2016 Inactive metoprolol succinate ER 100 mg 24 hr Tab RxNorm: 233009 1 Tablet(s) PO daily No Start Date 05/28/2011 Inactive Zithromax Z-Hebert 250 mg tablet RxNorm: 017885 Tablet(s) PO UD No Start Date 12/22/2015 Inactive diltiazem ER 180 mg capsule,extended release RxNorm: 988626 1 Capsule(s) PO daily No Start Date 10/13/2012 Inactive ProctoCream-HC 2.5 % rectal cream with applicator RxNorm: 930171 APPLY TO AFFECTED AREAS DIRECTED RTL No Start Date 09/30/2018 Inactive Tekturna 300 mg Tab RxNorm: 9140031 1 Tablet(s) PO daily samples No Start Date 02/11/2012 Inactive Xanax 0.25 mg tablet RxNorm: 014643 1-2 Tablet(s) PO QHS as needed insomnia No Start Date 07/24/2017 Inactive Fish Oil 1,000 mg Cap RxNorm: 1 Capsule(s) PO daily No Start Date 04/24/2018 Inactive ProAir HFA 90 mcg/actuation Aerosol Inhaler RxNorm: 1658026 2 INH Q6 PRN No Start Date 04/22/2012 Inactive chlordiazepoxide-clidinium 5 mg-2.5 mg Cap RxNorm: 612167 1 Capsule(s) PO PRN No Start Date 07/09/2011 Inactive q 12 hours prn Butrans 5 mcg/hour Transderm Patch RxNorm: 171599 1 Patch TD weekly No Start Date 05/26/2012 Inactive Lactobacillus acidophilus tablet RxNorm: 4 Tablet(s) PO daily No Start Date 01/03/2017 Inactive Librax (with clidinium) 5 mg-2.5 mg capsule RxNorm: 933074 1 Capsule(s) PO BID No Start Date 04/18/2012 Inactive Nexium 40 mg capsule,delayed release RxNorm: 705274 Capsule(s) PO PRN No Start Date 10/12/2014 Inactive Tylenol Extra Strength 500 mg tablet RxNorm: 215526 1 Tablet(s) PO BID as needed for pain No Start Date 04/24/2018 Inactive Premarin 0.625 mg/gram Vaginal Cream RxNorm: 592654 Gram(s) VAG No Start Date 03/12/2012 Inactive three times a week, small amt to vaginal tissuesample given metoprolol succinate ER 50 mg tablet,extended release 24 hr RxNorm: 269150 1 Tablet(s) PO daily No Start Date 2011 Inactive Zithromax Z-Hebert 250 mg tablet RxNorm: 551124 Tablet(s) PO UD No Start Date 08/13/2014 Inactive albuterol sulfate HFA 90 mcg/actuation aerosol inhaler RxNorm: 6955483 1 or2 Puff( s) INH Q4 PRN No Start Date 05/10/2014 Inactive Xanax 0.25 mg Tab RxNorm: 738059 1/2-1 Tablet(s) PO Q8 PRN No Start Date 03/12/2012 Inactive metoprolol succinate ER 25 mg tablet,extended release 24 hr RxNorm: 767378 1 Tablet(s) PO daily No Start Date 2012 Inactive Zithromax Z-Hebert 250 mg tablet RxNorm: 300394 1 Tablet(s) PO UD No Start Date 08/10/2016 Inactive Z PACK DIRECTED calcium carbonate 600 mg (1,500 mg) Tab RxNorm: 536225 1 Tablet(s) PO BID No Start Date 01/03/2017 Inactive albuterol sulfate HFA 90 mcg/Actuation Aerosol Inhaler RxNorm: 9643320 1-2 Puff(s ) INH Q4 PRN No Start Date 03/11/2012 Inactive Vitamin D3 2,000 unit capsule RxNorm: 388025 1 Capsule(s) PO daily No Start Date 10/12/2014 Inactive Colace 100 mg Cap RxNorm: 5384958 1 Capsule(s) PO BID No Start Date 01/17/2016 Inactive Neurontin 600 mg tablet RxNorm: 375662 1 Tablet(s) PO Q8 PRN No Start Date 06/09/2013 Inactive Lomotil 2.5 mg-0.025 mg tablet RxNorm: 5984057 1 Tablet(s) PO No Start Date 06/14/2014 Inactive one after each loose bm limit 8 per day Micardis 80 mg Tab RxNorm: 936589 1 Tablet(s) PO daily No Start Date 12/03/2011 Inactive Pyridium 200 mg tablet RxNorm: 3633433 1 Tablet(s) PO Q8 PRN No Start Date 09/10/2012 Inactive Medication Administered Medication Codes Instructions Start Date Status Kenalog 40 mg/mL suspension for injection RxNorm: 0322934 1Mliter 08/09/2017 No longer Active ceftriaxone 500 mg solution for injection RxNorm: 3964834 08/09/2017 No longer Active Kenalog 40 mg/mL suspension for injection RxNorm: 5993414 1Mliter 01/04/2017 No longer Active Kenalog 40 mg/mL suspension for injection RxNorm: 0831856 Milliliter 08/23/2016 No longer Active Rocephin 500 mg solution for injection RxNorm: 257648 illiliter 05/07/2014 No longer Active Kenalog 40 mg/mL suspension for injection RxNorm: 3072234 Milliliter 12/26/2013 No longer Active Rocephin 500 mg solution for injection RxNorm: 224342 12/26/2013 No longer Active Kenalog 40 mg/mL suspension for injection RxNorm: 5914803 Milliliter 11/12/2013 No longer Active Rocephin 500 mg solution for injection RxNorm: 435133 1Milliliter 10/09/2013 No longer Active Kenalog 40 mg/mL Susp for Injection RxNorm: 6834401 1Milliliter 11/21/2012 No longer Active Rocephin 500 mg Solution for Injection RxNorm: 0134384 08/23/2011 No longer Active triamcinolone acetonide 40 mg/mL Susp for Injection RxNorm: 9871512 1MilliliterUD 04/19/2011 No longer Active Immunizations Vaccine [...] Item Item Code Result Date Comp Metabolic Gkn521 NA 139 mEq/L 05/29/2018 Comp Metabolic Crt732 K 4.1 mEq/L 05/29/2018 Comp Metabolic Cve615 CL 99 mEq/L 05/29/2018 Comp Metabolic Utf425 CO2 30.0 mEq/L 05/29/2018 Comp Metabolic Izb359 ANION GAP 14 05/29/2018 Comp Metabolic Sqe487 GLUCOSE 107 mg/dL 05/29/2018 Comp Metabolic Odh399 Creat 0.6 mg/dL 05/29/2018 Comp Metabolic Bca584 eGFR 95 ml/min/1.73m2 05/29/2018 Comp Metabolic Fpo255 BUN 15 mg/dL 05/29/2018 Comp Metabolic Wvf891 B/C Ratio 23.4 Ratio 05/29/2018 Comp Metabolic Gms979 CALCIUM 9.4 mg/dL 05/29/2018 Comp Metabolic Nmf313 ALK PHOS 52 U/L 05/29/2018 Comp Metabolic Fiy286 AST(SGOT) 16 U/L 05/29/2018 Comp Metabolic Wls854 ALT(SGPT) 12 U/L 05/29/2018 Comp Metabolic Ilb779 BILI T 1.1 mg/dL 05/29/2018 Comp Metabolic Wps478 ALBUMIN 4.0 g/dL 05/29/2018 Comp Metabolic Nmg923 TPRO 6.5 g/dL 05/29/2018 Comp Metabolic Tml651 GLOB 2.5 g/dL 05/29/2018 Comp Metabolic Gvz215 A/G Ratio 1.6 Ratio 05/29/2018 Comp Metabolic Jfa588 Osmo 279 mOsmo 05/29/2018 Cbc With Differential [...] 28.9 pg 05/29/2018 Cbc With Differential Ord2 Montgomery% 9.0 % 05/29/2018 Cbc With Differential Ord2 [...] 2.05 K/ul 05/29/2018 Cbc With Differential Ord2 [place] ABS# 0.7 K/ul 05/29/2018 Cbc With Differential Ord2 Eos ABS# 0.2 K/ul 05/29/2018 Cbc With Differential Ord2 Baso ABS# 0.0 K/ul 05/29/2018 Tsh Ord6 TSH (3rd IS) 2.05 uIU/mL 05/29/2018 Lipid Ord30 CHOL 191 mg/dL 05/29/2018 Lipid Ord30 HDL 68.0 mg/dl 05/29/2018 Lipid Ord30 TRIG 138 mg/dL 05/29/2018 Lipid Ord30 LDL 95 mg/dL 05/29/2018 Lipid Ord30 C/HDL 2.8 Ratio 05/29/2018 Free T4 Wsy046 FREE T4 0.93 ng/dL 05/29/2018 Free T4 Iuj784 FREE T4 0.90 ng/dL 09/12/2017 Cbc With [...] 29.3 pg 09/12/2017 Cbc With Differential Ord2 Montgomery% 8.7 % 09/12/2017 Cbc With Differential Ord2 [...] 2.72 K/ul 09/12/2017 Cbc With Differential Ord2 [place] ABS# 1.2 K/ul 09/12/2017 Cbc With Differential Ord2 Eos ABS# 0.3 K/ul 09/12/2017 Cbc With Differential Ord2 Baso ABS# 0.1 K/ul 09/12/2017 Comp Metabolic Cuq808 NA 140 mEq/L 09/12/2017 Comp Metabolic Qkj747 K 4.3 mEq/L 09/12/2017 Comp Metabolic Gfm004 CL 99 mEq/L 09/12/2017 Comp Metabolic Cyg302 CO2 33.0 mEq/L 09/12/2017 Comp Metabolic Aya493 ANION GAP 12 09/12/2017 Comp Metabolic Nrl775 GLUCOSE 92 mg/dL 09/12/2017 Comp Metabolic Ovm756 Creat 0.7 mg/dL 09/12/2017 Comp Metabolic Kxd862 eGFR 84 ml/min/1.73m2 09/12/2017 Comp Metabolic Ovs179 BUN 18 mg/dL 09/12/2017 Comp Metabolic Nud554 B/C Ratio 25.4 Ratio 09/12/2017 Comp Metabolic Xef753 CALCIUM 9.3 mg/dL 09/12/2017 Comp Metabolic Her540 ALK PHOS 64 U/L 09/12/2017 Comp Metabolic Xhz758 AST(SGOT) 13 U/L 09/12/2017 Comp Metabolic Ykw705 ALT(SGPT) 12 U/L 09/12/2017 Comp Metabolic Hrj062 BILI T 0.7 mg/dL 09/12/2017 Comp Metabolic Ofb269 ALBUMIN 4.0 g/dL 09/12/2017 Comp Metabolic Ynn078 TPRO 6.3 g/dL 09/12/2017 Comp Metabolic Amj764 GLOB 2.3 g/dL 09/12/2017 Comp Metabolic Exh510 A/G Ratio 1.8 Ratio 09/12/2017 Comp Metabolic Kzr234 Osmo 281 mOsmo 09/12/2017 Lipid Ord30 CHOL [...] 28.8 pg 03/09/2016 Cbc With Differential Ord2 Montgomery% 8.5 % 03/09/2016 Cbc With Differential Ord2 [...] 2.38 K/ul 03/09/2016 Cbc With Differential Ord2 [place] ABS# 0.8 K/ul 03/09/2016 Cbc With Differential Ord2 Eos ABS# 0.2 K/ul 03/09/2016 Cbc With Differential Ord2 Baso ABS# 0.1 K/ul 03/09/2016 Comp Metabolic Xap246 NA 138 mEq/L 03/09/2016 Comp Metabolic Uta714 K 4.5 mEq/L 03/09/2016 Comp Metabolic Rkq588 CL 100 mEq/L 03/09/2016 Comp Metabolic Gri455 CO2 33.0 mEq/L 03/09/2016 Comp Metabolic Gjd414 ANION GAP 10 03/09/2016 Comp Metabolic Jcz793 GLUCOSE 94 mg/dL 03/09/2016 Comp Metabolic Opo844 Creat 0.6 mg/dL 03/09/2016 Comp Metabolic Fjs037 eGFR 106 ml/min/1.73m2 03/09/2016 Comp Metabolic Nnx825 BUN 10 mg/dL 03/09/2016 Comp Metabolic Hkv502 B/C Ratio 17.2 Ratio 03/09/2016 Comp Metabolic Lyj486 CALCIUM 9.2 mg/dL 03/09/2016 Comp Metabolic Kbh371 ALK PHOS 64 U/L 03/09/2016 Comp Metabolic Wtw889 AST(SGOT) 20 U/L 03/09/2016 Comp Metabolic Guz049 ALT(SGPT) 11 U/L 03/09/2016 Comp Metabolic Ycn216 BILI T 0.9 mg/dL 03/09/2016 Comp Metabolic Kym140 ALBUMIN 4.0 g/dL 03/09/2016 Comp Metabolic Nqd714 TPRO 6.1 g/dL 03/09/2016 Comp Metabolic Zuw547 GLOB 2.1 g/dL 03/09/2016 Comp Metabolic Wox229 A/G Ratio 1.9 Ratio 03/09/2016 Comp Metabolic Tav619 Osmo 274 mOsmo 03/09/2016 Free T4 Jrt368 FREE T4 0.90 ng/dL 03/09/2016 Lipid Ord30 [...] hTSH II 3.25 uIU/mL 09/07/2015 Free T4 [id number] FREE T4 0.79 ng/dL 09/07/2015 Comp Metabolic Xws707 NA 137 mEq/L 09/07/2015 Comp Metabolic Skr224 K 4.0 mEq/L 09/07/2015 Comp Metabolic Zyr771 CL 98 mEq/L 09/07/2015 Comp Metabolic Xld902 CO2 30.0 mEq/L 09/07/2015 Comp Metabolic Aao821 ANION GAP 13 09/07/2015 Comp Metabolic Lmb061 GLUCOSE 101 mg/dL 09/07/2015 Comp Metabolic Ahl338 Creat 0.6 mg/dL 09/07/2015 Comp Metabolic Bmz813 eGFR 111 ml/min/1.73m2 09/07/2015 Comp Metabolic Tyh625 BUN 16 mg/dL 09/07/2015 Comp Metabolic Vva152 B/C Ratio 28.6 Ratio 09/07/2015 Comp Metabolic Isf428 CALCIUM 9.4 mg/dL 09/07/2015 Comp Metabolic Grj491 ALK PHOS 68 U/L 09/07/2015 Comp Metabolic Vep926 AST(SGOT) 16 U/L 09/07/2015 Comp Metabolic Cgp788 ALT(SGPT) 12 U/L 09/07/2015 Comp Metabolic Okg431 BILI T 0.9 mg/dL 09/07/2015 Comp Metabolic Ozk664 ALBUMIN 4.1 g/dL 09/07/2015 Comp Metabolic Tbw120 TPRO 6.5 g/dL 09/07/2015 Comp Metabolic Fgm613 GLOB 2.4 g/dL 09/07/2015 Comp Metabolic Chu958 A/G Ratio 1.7 Ratio 09/07/2015 Comp Metabolic Nzp923 Osmo 275 mOsmo 09/07/2015 Cbc With Differential [...] Differential Ord2 RDW 14.4 % 09/07/2015 TSH 8523234 TSH 0.920 uIU/ML 08/28/2014 CBC 7365674 WBC 12.5 10e9/L 08/28/2014 CBC 9593022 RBC 3.44 10e12/L 08/28/2014 CBC 0059401 HGB 10.3 g/dL 08/28/2014 CBC 7538152 HCT DET 33.9 % 08/28/2014 CBC 3828039 MCV 98.5 fL 08/28/2014 CBC 5098256 MCH 29.9 pg 08/28/2014 CBC 5932486 MCHC 30.4 g/dL 08/28/2014 CBC 6574533 PLT 412 10e9/L 08/28/2014 CBC 6219555 MPV 10.2 fL 08/28/2014 CBC 1345080 NNEKA % 68.5 % 08/28/2014 CBC 0700546 LY % 20.8 % 08/28/2014 CBC 9120884 MON % 9.9 % 08/28/2014 CBC 5200527 EOS % 0.6 % 08/28/2014 CBC 3706415 BASO % 0.2 % 08/28/2014 CBC 9226071 RDW 15.8 % 08/28/2014 CBC 2770867 ABS NNEKA 8.56 10e9/L 08/28/2014 CBC 0620927 ABS LYMPH 2.60 10e9/L 08/28/2014 CBC 4049432 ABS MONO 1.24 10e9/L 08/28/2014 CBC 2202010 ABS EOS 0.08 10e9/L 08/28/2014 CBC 4989683 ABS BASO 0.03 10e9/L 08/28/2014 CBC 5970933 RDW-SD 55.4 fL 08/28/2014 GFR CALC 1426270 GFR AA >60 ML/MIN 08/28/2014 GFR CALC 5632091 GFR NON-AA >60 ML/MIN 08/28/2014 LIPID GRP HDL TEST 69 MG/DL 08/28/2014 LIPID GRP TRIG 158 MG/DL 08/28/2014 LIPID GRP TEST LDL 96 MG/DL 08/28/2014 LIPID GRP CHOL 197 MG/DL 08/28/2014 LIPID GRP RCHOL/HDL 2.86 RATIO 08/28/2014 LIPID GRP NON-HDL CH 128 MG/DL 08/28/2014 CHEM 14 6695153 AST 14 U/L 08/28/2014 CHEM 14 7498194 ALT 13 IU/L 08/28/2014 CHEM 14 0870392 BUN 15 MG/DL 08/28/2014 CHEM 14 0884665 ALBUMIN 4.2 GM/DL 08/28/2014 CHEM 14 0538734 CHLORIDE 98 MMOL/L 08/28/2014 CHEM 14 4667056 BILI TOT 1.2 MG/DL 08/28/2014 CHEM 14 2884264 ALK PHOS 68 U/L 08/28/2014 CHEM 14 0262849 SODIUM 137 MMOL/L 08/28/2014 CHEM 14 3708468 CREATININE 0.68 MG/DL 08/28/2014 CHEM 14 5715159 CALCIUM 9.1 MG/DL 08/28/2014 CHEM 14 4056587 POTASSIUM 3.7 MMOL/L 08/28/2014 CHEM 14 3071356 PROT TOT 6.2 GM/DL 08/28/2014 CHEM 14 7541728 GLUCOSE 91 MG/DL 08/28/2014 CHEM 14 5863964 BICARB 31 MMOL/L 08/28/2014 CHEM 14 0448631 ANION GAP 8 MEQ/L 08/28/2014 FREE T4 2917655 FREE T4 1.44 NG/DL 08/28/2014 LIPID GRP HDL TEST 73 MG/DL 04/16/2014 LIPID GRP TRIG 131 MG/DL 04/16/2014 LIPID GRP TEST LDL 99 MG/DL 04/16/2014 LIPID GRP CHOL 198 MG/DL 04/16/2014 LIPID GRP RCHOL/HDL 2.71 RATIO 04/16/2014 LIPID GRP NON-HDL CH 125 MG/DL 04/16/2014 CHEM 14 0786404 AST 17 U/L 04/14/2014 CHEM 14 9389848 ALT 17 IU/L 04/14/2014 CHEM 14 2677369 BUN 15 MG/DL 04/14/2014 CHEM 14 7129067 ALBUMIN 4.3 GM/DL 04/14/2014 CHEM 14 8319491 CHLORIDE 96 MMOL/L 04/14/2014 CHEM 14 0088567 BILI TOT 0.9 MG/DL 04/14/2014 CHEM 14 5672357 ALK PHOS 65 U/L 04/14/2014 CHEM 14 2106802 SODIUM 135 MMOL/L 04/14/2014 CHEM 14 5982639 CREATININE 0.69 MG/DL 04/14/2014 CHEM 14 8700531 CALCIUM 9.5 MG/DL 04/14/2014 CHEM 14 9419667 POTASSIUM 4.1 MMOL/L 04/14/2014 CHEM 14 9702184 PROT TOT 6.6 GM/DL 04/14/2014 CHEM 14 9628584 GLUCOSE 104 MG/DL 04/14/2014 CHEM 14 6607201 BICARB 34 MMOL/L 04/14/2014 CHEM 14 1714885 ANION GAP 5 MEQ/L 04/14/2014 A1C HPLC 1116797 A1C HPLC 92162-0 5.0 % 04/14/2014 TSH 9023636 TSH 2.140 uIU/ML 04/14/2014 FREE T4 8597037 FREE T4 1.56 NG/DL 04/14/2014 GFR CALC 6900602 GFR AA >60 ML/MIN 04/14/2014 GFR CALC 5238408 GFR NON-AA >60 ML/MIN 04/14/2014 CBC 2842170 WBC 12.8 10e9/L 04/14/2014 CBC 0805415 RBC 4.44 10e12/L 04/14/2014 CBC 1660669 HGB 13.2 g/dL 04/14/2014 CBC 6482403 HCT DET 41.4 % 04/14/2014 CBC 8003949 MCV 93.2 fL 04/14/2014 CBC 6727885 MCH 29.7 pg 04/14/2014 CBC 7113234 MCHC 31.9 g/dL 04/14/2014 CBC 5121228 PLT 383 10e9/L 04/14/2014 CBC 1053116 MPV 10.1 fL 04/14/2014 CBC 3566573 NNEKA % 65.5 % 04/14/2014 CBC 8654493 LY % 23.0 % 04/14/2014 CBC 7789893 MON % 9.9 % 04/14/2014 CBC 9674172 EOS % 1.3 % 04/14/2014 CBC 0019362 BASO % 0.3 % 04/14/2014 CBC 8862382 RDW 13.7 % 04/14/2014 CBC 9546542 ABS NNEKA 8.38 10e9/L 04/14/2014 CBC 4406150 ABS LYMPH 2.94 10e9/L 04/14/2014 CBC 3367847 ABS MONO 1.27 10e9/L 04/14/2014 CBC 1276419 ABS EOS 0.17 10e9/L 04/14/2014 CBC 1881600 ABS BASO 0.04 10e9/L 04/14/2014 CBC 3753306 RDW-SD 45.9 fL 04/14/2014 A1C HPLC 0804226 A1C HPLC 36941-7 4.9 % 11/13/2013 CHEM 14 8977646 AST 15 U/L 11/12/2013 CHEM 14 6545917 ALT 14 IU/L 11/12/2013 CHEM 14 0488428 BUN 14 MG/DL 11/12/2013 CHEM 14 7907127 ALBUMIN 4.3 GM/DL 11/12/2013 CHEM 14 4289375 CHLORIDE 101 MMOL/L 11/12/2013 CHEM 14 2361233 BILI TOT 0.9 MG/DL 11/12/2013 CHEM 14 8425295 ALK PHOS 67 U/L 11/12/2013 CHEM 14 6816088 SODIUM 139 MMOL/L 11/12/2013 CHEM 14 2731253 CREATININE 0.67 MG/DL 11/12/2013 CHEM 14 0231969 CALCIUM 9.5 MG/DL 11/12/2013 CHEM 14 3988087 POTASSIUM 4.1 MMOL/L 11/12/2013 CHEM 14 0768120 PROT TOT 6.5 GM/DL 11/12/2013 CHEM 14 2792868 GLUCOSE 102 MG/DL 11/12/2013 CHEM 14 9010748 BICARB 30 MMOL/L 11/12/2013 CHEM 14 3399146 ANION GAP 8 MEQ/L 11/12/2013 GFR CALC 0239929 GFR AA >60 ML/MIN 11/12/2013 GFR CALC 8329786 GFR NON-AA >60 ML/MIN 11/12/2013 TSH 3421177 TSH 2.445 uIU/ML 11/12/2013 FREE T4 4759295 FREE T4 1.09 NG/DL 11/12/2013 CBC 1404864 WBC 7.6 10e9/L 11/12/2013 CBC 2141466 RBC 4.42 10e12/L 11/12/2013 CBC 8260563 HGB 13.1 g/dL 11/12/2013 CBC 9067898 HCT DET 41.2 % 11/12/2013 CBC 3809639 MCV 93.2 fL 11/12/2013 CBC 6566485 MCH 29.6 pg 11/12/2013 CBC 2641786 MCHC 31.8 g/dL 11/12/2013 CBC 6886070 PLT 314 10e9/L 11/12/2013 CBC 0222651 MPV 10.4 fL 11/12/2013 CBC 7889979 NNEKA % 59.8 % 11/12/2013 CBC 7752399 LY % 28.1 % 11/12/2013 CBC 3800168 MON % 9.5 % 11/12/2013 CBC 3483639 EOS % 1.8 % 11/12/2013 CBC 7252983 BASO % 0.8 % 11/12/2013 CBC 0637272 RDW 13.8 % 11/12/2013 CBC 7672730 ABS NNEKA 4.54 10e9/L 11/12/2013 CBC 6260053 ABS LYMPH 2.14 10e9/L 11/12/2013 CBC 7963517 ABS MONO 0.72 10e9/L 11/12/2013 CBC 6138502 ABS EOS 0.14 10e9/L 11/12/2013 CBC 2253225 ABS BASO 0.06 10e9/L 11/12/2013 CBC 1355682 RDW-SD 46.0 fL 11/12/2013 LIPID GRP HDL TEST 66 MG/DL 11/12/2013 LIPID GRP TRIG 130 MG/DL 11/12/2013 LIPID GRP TEST LDL 108 MG/DL 11/12/2013 LIPID GRP CHOL 200 MG/DL 11/12/2013 LIPID GRP RCHOL/HDL 3.03 RATIO 11/12/2013 HS ENE ZOS 3099328 HS ENE ZOS IMMUNE 04/04/2013 A1C 2736354 A1C HPLC 81402-1 5.2 % 04/03/2013 GFR CALC 9544487 GFR AA >60 ML/MIN 03/31/2013 GFR CALC 1510629 GFR NON-AA >60 ML/MIN 03/31/2013 TSH 5407700 TSH 2.689 uIU/ML 03/31/2013 LIPID GRP HDL TEST 63 MG/DL 03/31/2013 LIPID GRP TRIG 157 MG/DL 03/31/2013 LIPID GRP TEST LDL 98 MG/DL 03/31/2013 LIPID GRP CHOL 192 MG/DL 03/31/2013 LIPID GRP RCHOL/HDL 3.05 RATIO 03/31/2013 FREE T4 5777277 FREE T4 1.19 NG/DL 03/31/2013 CHEM 14 20280229 AST 16 U/L 03/31/2013 CHEM 14 20280229 ALT 12 IU/L 03/31/2013 CHEM 14 2421335 BUN 17 MG/DL 03/31/2013 CHEM 14 0795816 ALBUMIN 4.5 GM/DL 03/31/2013 CHEM 14 3201718 CHLORIDE 98 MMOL/L 03/31/2013 CHEM 14 8191089 BILI TOT 0.7 MG/DL 03/31/2013 CHEM 14 1324090 ALK PHOS 53 U/L 03/31/2013 CHEM 14 8817135 SODIUM 137 MMOL/L 03/31/2013 CHEM 14 1127881 CREATININE 0.66 MG/DL 03/31/2013 CHEM 14 6611934 CALCIUM 9.6 MG/DL 03/31/2013 CHEM 14 8797926 POTASSIUM 4.2 MMOL/L 03/31/2013 CHEM 14 0830588 PROT TOT 6.7 GM/DL 03/31/2013 CHEM 14 1592485 GLUCOSE 101 MG/DL 03/31/2013 CHEM 14 2502016 BICARB 33 MMOL/L 03/31/2013 CHEM 14 3924885 ANION GAP 6 MEQ/L 03/31/2013 CBC 1601335 WBC 7.5 10e9/L 03/31/2013 CBC 5115576 RBC 4.39 10e12/L 03/31/2013 CBC 5679768 HGB 13.0 g/dL 03/31/2013 CBC 0310822 HCT DET 40.2 % 03/31/2013 CBC 4276511 MCV 91.6 fL 03/31/2013 CBC 5725075 MCH 29.6 pg 03/31/2013 CBC 6455719 MCHC 32.3 g/dL 03/31/2013 CBC 7720774 PLT 305 10e9/L 03/31/2013 CBC 7817458 MPV 10.4 fL 03/31/2013 CBC 8039299 NNEKA % 56.8 % 03/31/2013 CBC 2560720 LY % 30.3 % 03/31/2013 CBC 3227906 MON % 9.8 % 03/31/2013 CBC 9912040 EOS % 2.3 % 03/31/2013 CBC 1117301 BASO % 0.8 % 03/31/2013 CBC 8723914 RDW 13.2 % 03/31/2013 CBC 3572417 ABS NNEKA 4.26 10e9/L 03/31/2013 CBC 4783354 ABS LYMPH 2.27 10e9/L 03/31/2013 CBC 4956087 ABS MONO 0.74 10e9/L 03/31/2013 CBC 6181597 ABS EOS 0.17 10e9/L 03/31/2013 CBC 6916112 ABS BASO 0.06 10e9/L 03/31/2013 CBC 4898557 RDW-SD 43.2 fL 03/31/2013 LIPID GRP HDL TEST 49 MG/DL 09/11/2012 LIPID GRP TRIG 134 MG/DL 09/11/2012 LIPID GRP TEST LDL 81 MG/DL 09/11/2012 LIPID GRP CHOL 157 MG/DL 09/11/2012 LIPID GRP 2319413 RCHOL/HDL 3.20 RATIO 09/11/2012 TSH 0302676 TSH 2.118 uIU/ML 09/11/2012 CBC 5810847 WBC 7.5 10e9/L 09/11/2012 CBC 8117130 RBC 3.99 10e12/L 09/11/2012 CBC 2921084 HGB 11.7 g/dL 09/11/2012 CBC 7944797 HCT DET 37.7 % 09/11/2012 CBC 9858425 MCV 94.5 fL 09/11/2012 CBC 4100504 MCH 29.3 pg 09/11/2012 CBC 5403110 MCHC 31.0 g/dL 09/11/2012 CBC 1583825 PLT 384 10e9/L 09/11/2012 CBC 7741381 MPV 11.0 fL 09/11/2012 CBC 2555230 NNEKA % 51.7 % 09/11/2012 CBC 0136946 LY % 35.2 % 09/11/2012 CBC 0441200 MON % 10.4 % 09/11/2012 CBC 3793921 EOS % 2.3 % 09/11/2012 CBC 3174371 BASO % 0.4 % 09/11/2012 CBC 7976620 RDW 14.2 % 09/11/2012 CBC 4312706 ABS NNEKA 3.88 10e9/L 09/11/2012 CBC 8442701 ABS LYMPH 2.64 10e9/L 09/11/2012 CBC 8748321 ABS MONO 0.78 10e9/L 09/11/2012 CBC 5128229 ABS EOS 0.17 10e9/L 09/11/2012 CBC 9064701 ABS BASO 0.03 10e9/L 09/11/2012 CBC 4624035 RDW-SD 47.1 fL 09/11/2012 CHEM 14 3168149 AST 16 U/L 09/11/2012 CHEM 14 6441271 ALT 15 IU/L 09/11/2012 CHEM 14 2259537 BUN 11 MG/DL 09/11/2012 CHEM 14 0273489 ALBUMIN 4.2 GM/DL 09/11/2012 CHEM 14 4599361 CHLORIDE 101 MMOL/L 09/11/2012 CHEM 14 9995231 BILI TOT 0.8 MG/DL 09/11/2012 CHEM 14 2860625 ALK PHOS 57 U/L 09/11/2012 CHEM 14 9372491 SODIUM 141 MMOL/L 09/11/2012 CHEM 14 5573810 CREATININE 0.62 MG/DL 09/11/2012 CHEM 14 0116639 CALCIUM 9.5 MG/DL 09/11/2012 CHEM 14 5909123 POTASSIUM 4.7 MMOL/L 09/11/2012 CHEM 14 8970662 PROT TOT 6.6 GM/DL 09/11/2012 CHEM 14 1587959 GLUCOSE 90 MG/DL 09/11/2012 CHEM 14 8142737 BICARB 32 MMOL/L 09/11/2012 CHEM 14 9374306 ANION GAP 8 MEQ/L 09/11/2012 A1C HPLC 9589810 A1C HPLC 90004-0 4.5 % 09/11/2012 GFR CALC 1372281 GFR AA >60 ML/MIN 09/11/2012 GFR CALC 9778192 GFR NON-AA >60 ML/MIN 09/11/2012 FREE T4 0360880 FREE T4 1.30 NG/DL 09/11/2012 BMP 5769870 GLUCOSE 93 MG/DL 04/16/2012 BMP 5025519 CREATININE 0.64 MG/DL 04/16/2012 BMP 0830269 BUN 12 MG/DL 04/16/2012 BMP 4701290 SODIUM 139 MMOL/L 04/16/2012 BMP 7616707 POTASSIUM 4.1 MMOL/L 04/16/2012 BMP 2746881 CHLORIDE 99 MMOL/L 04/16/2012 BMP 4961376 BICARB 32 MMOL/L 04/16/2012 BMP 9867396 ANION GAP 8 MEQ/L 04/16/2012 BMP 2439945 CALCIUM 9.8 MG/DL 04/16/2012 CBC 2405199 WBC 8.5 10e9/L 04/16/2012 CBC 5488840 RBC 3.98 10e12/L 04/16/2012 CBC 1039481 HGB 11.5 g/dL 04/16/2012 CBC 6571063 HCT DET 36.7 % 04/16/2012 CBC 9726905 MCV 92.2 fL 04/16/2012 CBC 8178196 MCH 28.9 pg 04/16/2012 CBC 5935889 MCHC 31.3 g/dL 04/16/2012 CBC 5505015 PLT 321 10e9/L 04/16/2012 CBC 5140261 MPV 10.2 fL 04/16/2012 CBC 5964608 NNEKA % 64.3 % 04/16/2012 CBC 6337084 LY % 24.3 % 04/16/2012 CBC 2811502 MON % 9.0 % 04/16/2012 CBC 1630788 EOS % 1.9 % 04/16/2012 CBC 5423216 BASO % 0.5 % 04/16/2012 CBC 2703593 RDW 13.7 % 04/16/2012 CBC 5421844 ABS NNEKA 5.47 10e9/L 04/16/2012 CBC 6731547 ABS LYMPH 2.07 10e9/L 04/16/2012 CBC 9210171 ABS MONO 0.77 10e9/L 04/16/2012 CBC 0387240 ABS EOS 0.16 10e9/L 04/16/2012 CBC 8748338 ABS BASO 0.04 10e9/L 04/16/2012 CBC 1084270 RDW-SD 44.6 fL 04/16/2012 GFR CALC 2735524 GFR AA >60 ML/MIN 04/16/2012 GFR CALC 1398180 GFR NON-AA >60 ML/MIN 04/16/2012 URINALYSIS NONAUTO W/O SCOPE 02900 Specific Reeder 1.015 DateTime(Free Text in Aprima) URINALYSIS NONAUTO W/O SCOPE 36943 PH 6.0 DateTime(Free Text in Aprima) URINALYSIS NONAUTO W/O SCOPE 77012 GLUCOSE neg DateTime( Free Text in Aprima) URINALYSIS NONAUTO W/O SCOPE 56857 Protein neg DateTime( Free Text in Aprima) URINALYSIS NONAUTO W/O SCOPE 52961 Blood 1+ DateTime(Free Text in Aprima) URINALYSIS NONAUTO W/O SCOPE 46180 Bilirubin neg DateTime(Free Text in Aprima) URINALYSIS NONAUTO W/O SCOPE 98744 Ketones neg DateTime( Free Text in Aprima) URINALYSIS NONAUTO W/O SCOPE 07940 Urobilinogen neg DateTime(Free Text in Aprima) URINALYSIS NONAUTO W/O SCOPE 69071 Nitrite positive DateTime(Free Text in Aprima) URINALYSIS NONAUTO W/O SCOPE 97332 Leukocytes 1+ DateTime(Free Text in Aprima) UA 16869 Specific Reeder 1.015 DateTime(Free Text in Aprima ) UA 78081 PH 5 DateTime(Free Text in Aprima) UA 32835 GLUCOSE neg DateTime(Free Text in Aprima) UA 56747 Protein neg DateTime(Free Text in Aprima) UA 19868 Blood neg DateTime(Free Text in Aprima) UA 50391 Bilirubin neg DateTime(Free Text in Aprima) UA 50047 Ketones neg DateTime(Free Text in Aprima) UA 61736 Urobilinogen neg DateTime(Free Text in Aprima) UA 79279 Nitrite neg DateTime(Free Text in Aprima) UA 69974 Leukocytes neg DateTime(Free Text in Aprima) URINALYSIS NONAUTO W/O SCOPE 56014 Specific Reeder 1.010 DateTime(Free Text in Aprima) URINALYSIS NONAUTO W/O SCOPE 32857 PH 5.0 DateTime(Free Text in Aprima) URINALYSIS NONAUTO W/O SCOPE 47523 GLUCOSE NEG DateTime( Free Text in Aprima) URINALYSIS NONAUTO W/O SCOPE 00737 Protein NEG DateTime( Free Text in Aprima) URINALYSIS NONAUTO W/O SCOPE 27027 Blood NEG DateTime(Free Text in Aprima) URINALYSIS NONAUTO W/O SCOPE 20776 Bilirubin NEG DateTime(Free Text in Aprima) URINALYSIS NONAUTO W/O SCOPE 37039 Ketones NEG DateTime( Free Text in Aprima) URINALYSIS NONAUTO W/O SCOPE 85572 Urobilinogen NEG DateTime(Free Text in Aprima) URINALYSIS NONAUTO W/O SCOPE 54582 Nitrite NEG DateTime( Free Text in Aprima) URINALYSIS NONAUTO W/O SCOPE 81967 Leukocytes ++ DateTime(Free Text in Aprima) URINALYSIS NONAUTO W/O SCOPE 62220 Specific Reeder 1.010 DateTime(Free Text in Aprima) URINALYSIS NONAUTO W/O SCOPE 22982 PH 6.0 DateTime(Free Text in Aprima) URINALYSIS NONAUTO W/O SCOPE 79300 GLUCOSE NEG DateTime( Free Text in Aprima)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 Planned Activity Notes [...] this time. 09/03/2018 Appointment: Concepción Flanagan WPtel: [address] [place], [place] [phone] (15 min) Moderate 09/03/2018 Patient Education: Patient [...] and back. 05/29/2018 Appointment: Concepción Flanagan WPtel: [facility] (15 min) Moderate 05/29/2018 Patient Education: Patient Medication Summary Completed 05/29/2018 Care Plan: Referral Order SNOMED-CT : [id number] Pending 05/29/2018 Visit Plan: Wound Instructions - [...] removal process. 02/06/2018 Appointment: Hayley London WPtel: [phone] [facility] (15 min) Moderate 02/06/2018 Patient Education: Patient [...] to medications. 01/23/2018 Appointment: Concepción Flanagan [facility]el[phone] (15 min) Moderate 01/23/2018 Patient Education: Patient Medication Summary Completed 01/23/2018 Visit Plan: Cough - improved - sinusitis resolved. 09/26/2017 Appointment: Concepción Flanagan WPtel: [address] [facility] (15 min) Moderate 09/26/2017 Patient Education: Patient Medication Summary Completed 09/26/2017 Visit Plan: Acute Maxillary Sinusitis - if not improving - pt would like to see an ENT - H[facility]ia Tompkins in [place]. Treatment as follows: cefdinir - antibiotic twice [...] refilled hydrocodone. 09/12/2017 Appointment: Concepción Flanagan WPtel: [phone] [facility] (15 min) Moderate 09/12/2017 Patient Education: Patient [...] allergy spray. 08/31/2017 Appointment: [phone] (30 min) Complex 08/31/2017 Patient Education: Patient Medication Summary Completed 08/31/2017 Visit Plan: URI - Pt advised to increase fluids, vitamin C. Discussed natural and expected course of this diagnosis and need to alert me if symptoms do not follow expected course, or if any worse. RX sent to patient' s pharmacy. 08/09/2017 Appointment: Chaparrita Arrieta WPtel: [phone] [phone] (30 min) Complex 08/09/2017 Patient Education: Patient [...] refilled hydrocodone. 05/07/2017 Appointment: Concepción Flanagan [facility]Ptel: [phone] [facility] [place] (15 min) Moderate 05/07/2017 Patient Education: [...] surrogate. 04/12/2017 Appointment: Hayley London [facility]Ptel[phone] [facility] - Annual Wellness Visit 04/12/2017 Patient Education: Patient Medication Summary Completed 04/12/2017 Appointment: Nurse Visit 02/15/2017 Patient Education: Patient Medication Summary Completed 02/15/2017 Visit Plan: Rbdrg-tnsgiuhvil-kfhoe zpack when finished with cipro-follow up chest [...] day-follow up Sunday02/02/2017 Appointment: Chaparrita Arrieta WPtel: [phone] [phone] (15 min) Moderate 02/02/2017 Patient Education: Patient Medication Summary Completed 02/02/2017 Patient Education: Obesity Completed 02/02/2017 Visit Plan: Sinusitis - Pt has acute infection - pain in face, maxillary region, Pt informed to use decongestant, RX given to patient, sinus rinses also recommended. Call if symptoms do not show improvement. 01/15/2017 Appointment: Chaparrita Arrieta WPtel[phone] (10 min) Simple 01/15/2017 Patient Education: [...] shot today 01/04/2017 Appointment: Concepción Flanagan WPtel: [phone] [facility] (15 min) Moderate 01/04/2017 Patient Education: Patient [...] medication (lexapro). 09/07/2016 Appointment: Concepción Flanagan WPtel: [phone] (30 min) Complex 09/07/2016 Patient Education: Patient [...] at home. 07/06/2016 Appointment: Concepción Flanagan WPtel: [phone] [facility] (15 min) Moderate 07/06/2016 Patient Education: Patient [...] TWICE DAILY 06/08/2016 Appointment: Concepción Flanagan WPtel: [phone] [facility] (15 min) Moderate 06/08/2016 Patient Education: Patient [...] peripheral edema. 04/06/2016 Appointment: Concepción Flanagan WPtel: [phone] [facility] (15 min) Moderate 04/06/2016 Patient Education: Patient [...] for Mikala. 01/18/2016 Appointment: Concepción Flanagan WPtel: [facility] (15 min) Moderate 01/18/2016 Patient Education: Patient [...] Marcia FALCON for re-certification of oxygen. 09/09/2015 Visit [...] discuss with her son who is a Research Professor Of Biostatistics - and consider re-evaluation for nasal pillows with her cpap since she could not tolerate a face mask cpap in the past. 12/25/2014 Appointment: Concepción Flanagan WPtel: [phone] [facility] [place] Follow up 12/25/2014 Patient Education: Patient [...] at home. 10/13/2014 Appointment: Concepción Flanagan WPtel: [phone] [facility] [place] Follow up 10/13/2014 Patient Education: Patient [...] her . 08/28/2014 Appointment: Concepción Flanagan WPtel: [address] [place] [address] Follow up 08/28/2014 Patient Education: Patient Medication [...] monitor creatinine. 04/16/2014 Appointment: Concepción Flanagan WPtel: [phone] [facility] Follow up 04/16/2014 Patient Education: Patient Medication Summary Completed 04/16/2014 Patient Education: Patient Medication Summary Completed 04/14/2014 Patient Education: Hypertension Completed 04/14/2014 Visit Plan: Wound Instructions - Pt was instruced to keep the wound clean, wash with antibacterial soap, use triple antibiotic ointment, call if redness, pustular drainage, or any other acute conerns. 01/27/2014 Appointment: Concepción Flanagan WPtel: [phone] [facility] Surgical Procedure 01/27/2014 Patient Education: Patient Medication [...] out to do home eval. 01/21/2014 Appointment: Demi Flanagany WPtel: [address] [place], [place] [phone] Follow up 01/21/2014 Patient Education: Patient Medication Summary Completed 01/21/2014 Patient Education: Hypertension Completed 01/21/2014 Visit Plan: Hypotension - Bradycardia - pt to stop her metroprolol - check bp and heart rate twice daily and monitor symptoms. Call if bp uncontrolled- or heart rate to elevated. 01/07/2014 Appointment: Panchito Concepción WPtel: [facility] Follow up 01/07/2014 Patient Education: Hypertension Completed [...] and swallow 11/12/2013 Appointment: Chaparrita Arrieta WPtel: [facility]5 [phone] Sick 11/12/2013 Patient Education: Patient Medication Summary Completed 11/12/2013 Patient Education: Hypertension Completed 11/12/2013 Visit Plan: Sinusitis - Pt has acute infection - pain in face, maxillary region, Pt informed to use decongestant, RX given to patient, sinus rinses also recommended. Call if symptoms do not show improvement. 10/09/2013 Appointment: Chaparrita Arrieta WPtel: [facility]0 [phone] Sick 10/09/2013 Patient Education: Patient Medication Summary [...] check UA 04/03/2013 Appointment: Concepción Flanagan WPtel: [phone] [facility] Follow up 04/03/2013 Patient Education: Patient Medication Summary Completed 04/03/2013 Patient Education: Hypertension Completed 04/03/2013 Patient Education: Patient Medication Summary Completed 03/31/2013 Patient Education: Hypertension Completed 03/31/2013 Visit Plan: ua performed - sent for culture if indicated. 03/21/2013 Appointment: Concepción Flanagan WPtel: [facility]5 [facility] Lab Draw 03/21/2013 Patient Education: Patient Medication [...] peripheral edema. 01/06/2013 Appointment: Concepción Flanagan WPtel: [phone] Follow up 01/06/2013 Patient Education: Patient Medication Summary Completed 01/06/2013 Patient Education: Hypertension Completed 01/06/2013 Visit Plan: Kmjxkanlp-Xvnuaq-qzfzzdrn not well controlled- KENALOG injection today in [...] peripheral edema. 10/28/2012 Appointment: Concepción Flanagan WPtel: [facility]5 [facility] Follow up 10/28/2012 Patient Education: Patient Medication [...] treatment recommendations. 09/30/2012 Appointment: Concepción Flanagan WPtel: [address] [place], [place] [phone] Follow up 09/30/2012 Patient Education: Patient Medication Summary Completed 09/30/2012 Patient Education: Hypertension Completed 09/30/2012 Appointment: Concepción Flanagan WPtel: [address] [place], [place] [phone] Lab Draw 09/11/2012 Patient Education: Patient Medication [...] - resolved 08/14/2012 Appointment: Concepción Flanagan WPtel: [facility]5 [facility] Follow up 08/14/2012 Patient Education: Patient Medication Summary Completed 08/14/2012 Patient Education: Hypertension Completed 08/14/2012 Visit Plan: Cellulitis - start with generic Bactrim DS as directed, return to clinic as previously directed, call for acute change in symptoms, worsening redness, warmth, discharge. 08/05/2012 Appointment: Concepción Flanagan WPtel: [facility]5 [facility] Follow up 08/05/2012 Patient Education: Patient Medication [...] soften stools. 07/15/2012 Appointment: Concepción Flanagan WPtel: [facility]5 [facility] Hospital follow up 07/15/2012 Patient Education: Patient Medication Summary Completed 07/15/2012 Patient Education: Hypertension Completed 07/15/2012 Visit Plan: Subungual discoloratiion of toenail- June 10 [address] is to see Dr[address] Bee - I have discussed the case with the pt and Dr. bee and she will likely have a biopsy of the digit and avulsion of the nail. 05/27/2012 Appointment: Concepción Flanagan WPtel: [facility]5 [facility] [place] Other 05/27/2012 Patient Education: Patient Medication Summary Completed 05/27/2012 Appointment: Chaparrita Arrieta WPtel: [facility]5 [phone] Follow up 05/16/2012 Visit Plan: Obesity - [...] Influenza vaccine 05/03/2012 Appointment: Chaparrita Arrieta WPtel: [phone] [facility] [place] [address] Follow up 05/03/2012 Patient Education: Patient Medication Summary Completed 05/03/2012 Visit Plan: Wound Instructions - Pt was instruced to keep the wound clean, wash with antibacterial soap, use triple antibiotic ointment, call if redness, pustular drainage, or any other acute conerns. 04/23/2012 Appointment: Concepción Flanagan WPtel: [facility]5 [facility] [place] Surgical Procedure 04/23/2012 Patient Education: Patient Medication Summary Completed 04/23/2012 Appointment: Concepción Flanagan WPtel: [facility]5 [place] [phone] [place] Lab Draw 04/16/2012 Patient Education: Patient [...] readings at home. Recommend follow up with air pollution auditor for clearance before knee surgery. Will get [...] to thighs. 03/25/2012 Appointment: Concepción Flanagan WPtel: [phone] Other 03/25/2012 Patient Education: Patient Medication Summary [...] lesion. 03/12/2012 Appointment: Chaparrita Arrieta WPtel: [phone] Other 03/12/2012 Patient Education: [...] at home. 01/23/2012 Appointment: Concepción Flanagan WPtel: [address] [place] [address] Other 01/23/2012 Patient Education: Patient Medication Summary Completed 01/23/2012 Patient Education: High Blood Pressure: Essential Hypertension Completed 2011 Visit Plan: Breast jchb-qabu-wszogvyqg natural and expected course of this diagnosis and to alert me if symptoms do not follow expected course, or if any worse. Plan for diagnostic mammogram, in meantime, instructed patient to get more supportive bra, use anti-inflammatories and monitor symptoms. Patient verbalized understanding of plan. 01/12/2012 Appointment: Chaparrita Arrieta WPtel: [facility] Other 01/12/2012 Patient Education: Patient Medication Summary [...] current medications. 12/25/2011 Appointment: Concepción Flanagan WPtel: [address] [place] [address] Other 12/25/2011 Patient Education: Patient Medication Summary [...] SOCKS. 12/04/2011 Appointment: Concepción Flanagan WPtel: [phone] [place] Other 12/04/2011 Patient Education: Patient Medication Summary Completed 12/04/2011 Patient Education: High Blood Pressure: Essential Hypertension Completed 2011 Appointment: Chaparrita Arrieta WPtel: [phone] [place] Lab Draw 12/01/2011 Patient Education: Patient Medication Summary Completed 12/01/2011 Appointment: Concepción Flanagan WPtel: [phone] [place] Lab Draw 11/20/2011 Patient Education: Patient [...] acutely worsen. 09/20/2011 Appointment: Concepción Flanagan WPtel: [phone] [facility] Other 09/20/2011 Patient Education: Patient Medication Summary Completed 09/20/2011 Patient Education: High Blood Pressure: Essential Hypertension Completed 2011 Appointment: Concepción Flanagan WPtel: [facility]7 [facility] Other 09/13/2011 Visit Plan: Hypertension - The [...] benefits of treament with the above medications. Fkntbeg-bhdhsvak-LM negative 09/06/2011 Appointment: Chaparrita Arrieta WPtel: [phone] Other 09/06/2011 Patient Education: Patient Medication Summary [...] they worsen. 08/30/2011 Appointment: Concepción Flanagan WPtel: [address] [place] [address] Other 08/30/2011 Patient Education: Patient Medication Summary [...] patient's pharmacy. 08/23/2011 Appointment: Chaparrita Arrieta WPtel: [address] [place] [address] Other 08/23/2011 Patient Education: Patient Medication Summary Completed 08/23/2011 Visit Plan: Labial cyst-discussed natural and expected course of this diagnosis and to alert me if symtpoms do not follow expected course, or if any worse. Patient and verbalized understanding. 08/09/2011 Appointment: Chaparrita Arrieta WPtel: [address] [place], [place] [phone] Other 08/09/2011 Patient Education: Patient Medication Summary [...] not improving. 05/04/2011 Appointment: Concepción Flanagan WPtel: [facility]4 [facility] [place] Other 05/04/2011 Patient Education: Patient Medication [...] 40mg daily. 04/19/2011 Appointment: Chaparrita Arrieta WPtel: [phone] [place] Other 04/19/2011 Patient Education: Patient Medication Summary Completed 04/19/2011 Referral: External, Ordering Provider Referral Appointment Requested Instructions Comment . URI-discussed expected course with the patient, [...] etc. samples given of nexium 40mg daily. . Hypertension - well controlled - continue [...] over-medication. Allergies - kenalog shot today . Hypertension - well controlled - continue [...] discuss with her son who is a Research Professor Of Biostatistics - and consider re-evaluation for nasal pillows with her cpap since she could not tolerate a face mask cpap in the past. . Wound Instructions - Pt was instruced [...] do not improve, or if any worse.. Inxzilmmn-Torlrl-gddgjgsp not well controlled-KENALOG injection today in the [...] see an ENT - [facility]ia Tompkins in [place]. Treatment as follows: cefdinir - antibiotic twice [...] Chronic pain - symptoms - refilled hydrocodone. FLONASE 1 SPRAY EACH NARE DAILY PREDNISONE 20MG TWICE DAILY X 5 DAYS CALL SUNDAY IF NOT BETTER AND WE WILL SEND IN A PRESCRIPTION FOR ZITHROMAX . Sinusitis - Pt has acute infection - pain in face, maxillary region, Pt informed to use decongestant, RX given to patient, sinus rinses also recommended. Call if symptoms do not show improvement. . Cellulitis - start with generic Bactrim [...] benefits of treatment with the medication (lexapro). Recommend diagnostic mammogram with ultrasound if needed Get supportive bra and make sure your breasts are well suppported. Recommend aleve twice daily and monitor symptoms. . Breast imiq-bbdw-ndosucbzr natural and expected course of this diagnosis [...] not improve. Nocturnal hypoxia-overnight oxygen study . Sinusitis - Pt has acute infection - pain in face, maxillary region, Pt informed to use decongestant, RX given to patient, sinus rinses also recommended. Call if symptoms do not show improvement. . Medicare Exam - today we discussed [...] drainage, or any other acute conerns. . Cough - improved - sinusitis resolved. . Hypertension - well controlled - continue [...] further attempt to reduce peripheral edema. . Allergies - chronic - recommended pt to use allergy medication as prescribed. Pt has been counseled as the the appropriate use of the medication. Pt to call if allergy symptoms are not controlled with the medication. Kenalog injection today in the office. Thrush-RX for nystatin swish and swallow . Hypertension - well controlled - continue [...] patient stabilized during the removal process. . Hypertension - uncontrolled - the patient's [...] do not improve or if they worsen. stop metoprolol blood pressure and heart rate check twice daily . Hypotension - Bradycardia - pt to stop her metroprolol - check bp and heart rate twice daily and monitor symptoms. Call if bp uncontrolled- or heart rate to elevated. MIRALAX TO BE STARTED AND TAKEN DAILY [...] use this daily to help soften stools. Start Norvasc (amlodipine) 5mg daily Stop the [...] posterior arm-recommend removal and biopsy of lesion. . Hypertension - well controlled - continue [...] office if the symptoms are not improving. Cymbalta 30mg daily Call with any side [...] benefits of treament with the above medications. Fziaqwx-npvukpdt-RH negative . Hypertension - well controlled - [...] the digit and avulsion of the nail. . Hypertension - uncontrolled - the patient's [...] to further attempt to reduce peripheral edema. INCREASE THE LEXAPRO TO 10MG DAILY START [...] - supportive care at this time. . Ahuex-yfoksatloa-bnakm zpack when finished with cipro- follow up chest xray on Sunday UTI-finish cipro and repeat UA . Hypertension - well controlled - continue [...] to assure normal liver response to medications. . Hypertension - well controlled - [...] pressure readings at home. . Hypertension - per home reports, her [...] uncontrolled - start on meloxicam, monitor creatinine. . URI - Pt advised to increase [...] readings at home. Recommend follow up with air pollution auditor for clearance before knee surgery. Will get [...] Via Marcia FALCON for re-certification of oxygen. . Hypertension - [...] Via Marcia FALCON for re-certification of oxygen. . Sinusitis - [...] any worse. RX sent to patient's pharmacy. Urge incontinence -Pt has urge incontinence - [...] see Dr. Joshi for further treatment recommendations. PATIENT IS TO CHECK BLOOD PRESSURE AND [...] for knees and back. . Hypertension - well controlled - continue [...]
--- OUTSIDE RECORDS SUMMARY | 2018-12-27 10:18 | XMS REPORT | CCD ---
Author Author Chaparrita Arrieta Organization [facility] Address [address] [place] [address] Phone Care Team Providers Care Title Insurance Agent Name Role Phone [facility] Un[facility] CCM Unavailable Summary Purpose Interface Exchange Insurance Providers Payer name Policy type / Coverage type Covered constitution party ID Effective Begin Date Effective End Date WPS Medicare Part B Medicare Part B [id number] 2018 Unknown AARP Medicare Part B [id number] Unknown Family history Son Diagnosis Age At [...] status Unknown 04/19/[address]: 0061990 Quit over 10 years ago 40 pack/year [...] Start Date Stop Date Status Fill Instructions Atacand 16 mg tablet RxNorm: 014214 1 Tablet(s) PO daily 201810/31/2019 Active replaces benicar Atacand 16 mg tablet RxNorm: 102171 1 Tablet(s) PO daily 201811/05/2018 Inactive replaces benicar meloxicam 15 mg tablet RxNorm: 588219 TAKE ONE TABLET BY MOUTH DAILY 10/08/2018 03/30/2020 Active ProctoCream-HC 2.5 % rectal cream with applicator RxNorm: 921289 APPLY TO AFFECTED AREAS DIRECTED RTL 10/01/2018 No Stop Date Active Cartia XT 240 mg capsule,extended release RxNorm: 163914 TAKE ONE CAPSULE BY MOUTH DAILY 09/23/2018 09/17/2019 Active Singulair 10 mg tablet RxNorm: 409109 TAKE ONE TABLET BY MOUTH EVERY DAY 09/06/2018 10/30/2019 Active Klor-Con 10 mEq tablet,extended release RxNorm: 034723 TAKE ONE TABLET BY MOUTH TWICE A DAY 09/06/2018 06/02/2019 Active Xanax 0.25 mg tablet RxNorm: 295632 1-2 Tablet(s) PO QHS as needed insomnia 08/26/2018 11/23/2018 Active Voltaren 1 % topical gel RxNorm: 184256 APPLY TWO GRAMS TOPICALLY FOUR TIMES A DAY BILATERAL KNEES AND LOWER BACK 06/26/2018 09/23/2018 Inactive Lasix 40 mg tablet RxNorm: 911990 TAKE ONE TABLET BY MOUTH DAILY 06/20/2018 12/16/2018 Active Voltaren 1 % topical gel RxNorm: 202882 2 Gram(s) TOP QID bilateral knees and low back 05/29/2018 06/25/2018 Inactive Synthroid 50 mcg tablet RxNorm: 856906 Tablet(s) TAKE ONE TABLET BY MOUTH DAILY 05/17/2018 11/12/2018 Active Synthroid 50 mcg tablet RxNorm: 098102 TAKE ONE TABLET BY MOUTH DAILY 05/16/2018 05/16/2018 Inactive hydrocodone 5 mg-acetaminophen 325 mg tablet RxNorm: 670759 1/2 Tablet(s) PO QID as needed 05/15/2018 06/13/2018 Inactive Keflex 500 mg capsule RxNorm: 538608 1 Capsule(s) PO TID PRN 11/201705/06/2018 Inactive Silvadene 1 % topical cream RxNorm: 425486 1 Application TOP BID 04/30/2018 05/09/2018 Inactive Anusol-HC 25 mg rectal suppository RxNorm: 7443636 1 Suppository PRN INSERT 1 RECTALLY DAILY NEEDED 04/25/2018 No Stop Date Active Colace 100 mg capsule RxNorm: 8729901 1 Capsule(s) PO daily as needed 04/25/2018 No Stop Date Active Silvadene 1 % topical cream RxNorm: 490089 1 Application TOP BID 04/25/2018 04/29/2018 Inactive meloxicam 15 mg tablet RxNorm: 299560 1 Tablet(s) PO daily TAKE ONE TABLET BY MOUTH ONE TIME A DAY 04/25/20182018 Inactive Benicar 40 mg tablet RxNorm: 602367 TAKE ONE TABLET BY MOUTH DAILY 04/04/2018 11/05/2018 Inactive Xanax 0.25 mg tablet RxNorm: 677554 1-2 Tablet(s) PO QHS as needed insomnia 03/07/2018 06/04/2018 Inactive Lasix 40 mg tablet RxNorm: 056757 TAKE ONE TABLET BY MOUTH DAILY 01/07/2018 06/19/2018 Inactive Crestor 10 mg tablet RxNorm: 952244 TAKE 1 TABLET BY MOUTH ON SUNDAY, SUNDAY, AND Sunday11/20/2017 05/18/2018 Inactive Synthroid 50 mcg tablet RxNorm: 804418 TAKE ONE TABLET BY MOUTH DAILY 11/14/2017 05/12/2018 Inactive Diflucan 150 mg tablet RxNorm: 729759 1 Tablet(s) PO daily 09/25/2017 Inactive cefdinir 300 mg capsule RxNorm: 030567 1 Capsule(s) PO BID 09/25/2017 Inactive Cartia XT 240 mg capsule,extended release RxNorm: 709983 TAKE ONE CAPSULE BY MOUTH DAILY 09/12/2017 09/06/2018 Inactive prednisone 20 mg tablet RxNorm: 066439 2 Tablet(s) PO daily 12/201709/04/2017 Inactive Xanax 0.25 mg tablet RxNorm: 631705 1-2 Tablet(s) PO QHS as needed insomnia 08/28/2017 11/24/2017 Inactive Keflex 500 mg capsule RxNorm: 117714 1 Capsule(s) PO TID 201708/27/2017 Inactive Keflex 500 mg capsule RxNorm: 086509 1 Capsule(s) PO TID 201709/03/2017 Inactive Klor-Con 10 mEq tablet,extended release RxNorm: 476116 TAKE ONE TABLET BY MOUTH TWICE A DAY 08/23/2017 08/17/2018 Inactive cefdinir 300 mg capsule RxNorm: 278381 1 Capsule(s) PO BID 08/12/2017 Inactive cefdinir 300 mg capsule RxNorm: 624353 1 Capsule(s) PO BID 08/19/2017 Inactive Kenalog 40 mg/mL suspension for injection RxNorm: 6298740 1 Milliliter(s) Inj 08/09/2017 08/09/2017 Inactive ceftriaxone 500 mg solution for injection RxNorm: 5955727 Inj 08/09/2017 08/09/2017 Inactive Zithromax Z-Hebert 250 mg tablet RxNorm: 809368 1 Tablet(s) PO UD 08/09/2017 08/13/2017 Inactive Singulair 10 mg tablet RxNorm: 174891 TAKE ONE TABLET BY MOUTH EVERY DAY 08/03/2017 09/05/2018 Inactive Xanax 0.25 mg tablet RxNorm: 941310 1-2 Tablet(s) PO QHS as needed insomnia 07/25/2017 05/28/2018 Inactive Benicar 40 mg tablet RxNorm: 786923 TAKE ONE TABLET BY MOUTH DAILY 07/09/2017 04/03/2018 Inactive Lasix 40 mg tablet RxNorm: 503153 TAKE ONE TABLET BY MOUTH DAILY 07/09/2017 01/04/2018 Inactive Synthroid 50 mcg tablet RxNorm: 496821 1 Tablet(s) PO daily TAKE ONE TABLET BY MOUTH DAILY 05/21/2017 11/13/2017 Inactive Must be name brand Lasix 40 mg tablet RxNorm: 176155 TAKE ONE TABLET BY MOUTH DAILY 04/12/2017 07/08/2017 Inactive Zithromax Z-Hebert 250 mg tablet RxNorm: 424196 1 Tablet(s) PO UD 02/05/2017 02/09/2017 Inactive start with finished with cipro Cipro 500 mg tablet RxNorm: 646504 1 Tablet(s) PO BID 201602/07/2017 Inactive prednisone 20 mg tablet RxNorm: 166762 1 Tablet(s) PO BID 01/1501/19/2017 Inactive take 1 in the morning and 1 at noon calcium carbonate 600 mg calcium (1,500 mg) tablet RxNorm: 054586 1 Tablet(s) PO daily 01/04/2017 No Stop Date Active Kenalog 40 mg/mL suspension for injection RxNorm: 7715194 1 Milliliter(s) Inj 01/04/2017 01/04/2017 Inactive Anusol-HC 25 mg rectal suppository RxNorm: 9350800 1 Suppository PRN INSERT 1 RECTALLY DAILY NEEDED 01/04/20172016 Inactive Lasix 40 mg tablet RxNorm: 338077 TAKE ONE TABLET BY MOUTH DAILY 12/20/2016 04/11/2017 Inactive Cartia XT 240 mg capsule,extended release RxNorm: 338292 TAKE ONE CAPSULE BY MOUTH DAILY 12/20/2016 09/11/2017 Inactive Synthroid 50 mcg tablet RxNorm: 459945 1 Tablet(s) PO daily TAKE ONE TABLET BY MOUTH DAILY 11/27/2016 05/20/2017 Inactive Must be name brand meloxicam 15 mg tablet RxNorm: 119938 Tablet(s) TAKE ONE TABLET BY MOUTH ONE TIME A DAY 11/27/2016 06/24/2017 Inactive Crestor 10 mg tablet RxNorm: 196481 TAKE 1 TABLET BY MOUTH ON SUNDAY, SUNDAY, AND Sunday11/13/2016 10/14/2017 Inactive Lexapro 10 mg tablet RxNorm: 680117 1 Tablet(s) PO daily 201601/03/2017 Inactive please make sure that her RX for lexapro is a 10mg dose - delete the 5mg lexapro pill - this is FYI Klor-Con 10 mEq tablet,extended release RxNorm: 114010 TAKE ONE TABLET BY MOUTH TWICE A DAY 08/29/2016 02/24/2017 Inactive Kenalog 40 mg/mL suspension for injection RxNorm: 9914254 Milliliter(s) Inj 08/23/2016 08/23/2016 Inactive cefdinir 300 mg capsule RxNorm: 072258 1 Capsule(s) PO BID 08/28/2016 Inactive take probiotic while on abx Zithromax Z-Hebert 250 mg tablet RxNorm: 224258 1 Tablet(s) PO UD 08/11/2016 09/06/2016 Inactive Z PACK DIRECTED Lexapro 5 mg tablet RxNorm: 082643 TAKE ONE TABLET BY MOUTH EVERY EVENING 07/18/2016 09/06/2016 Inactive Singulair 10 mg tablet RxNorm: 999590 TAKE ONE TABLET BY MOUTH EVERY DAY 07/17/2016 08/02/2017 Inactive Benicar 40 mg tablet RxNorm: 310821 TAKE ONE TABLET BY MOUTH DAILY 07/17/2016 07/08/2017 Inactive Lexapro 10 mg tablet RxNorm: 226780 1 Tablet(s) PO daily 201509/06/2016 Inactive diltiazem ER 180 mg capsule,extended release RxNorm: 274859 TAKE ONE CAPSULE BY MOUTH DAILY 06/15/2016 07/05/2016 Inactive Lexapro 10 mg tablet RxNorm: 814743 1 Tablet(s) PO daily 201506/15/2016 Inactive gabapentin 600 mg tablet RxNorm: 505512 TAKE ONE TABLET BY MOUTH EVERY NIGHT AT BEDTIME NEEDED 04/27/2016 04/11/2017 Inactive Cartia XT 240 mg capsule,extended release RxNorm: 287907 1 Capsule(s) PO daily TAKE ONE CAPSULE BY MOUTH ONCE A DAY 04/17/2016 12/19/2016 Inactive Benicar 40 mg tablet RxNorm: 515383 1 Tablet(s) PO daily 201507/16/2016 Inactive she can do 90 days if she wants to Lexapro 5 mg tablet RxNorm: 125734 1 Tablet(s) PO QPM 201506/07/2016 Inactive Synthroid 50 mcg tablet RxNorm: 925207 1 Tablet(s) PO daily TAKE ONE TABLET BY MOUTH DAILY 01/18/2016 07/15/2016 Inactive Colace 100 mg capsule RxNorm: 6321337 1 Capsule(s) PO daily 04/24/2018 Inactive hydrocodone 5 mg-acetaminophen 325 mg tablet RxNorm: 015193 1/2 Tablet(s) PO QID as needed 01/18/2016 02/16/2016 Inactive Synthroid 50 mcg tablet RxNorm: 086125 Tablet(s) TAKE ONE TABLET BY MOUTH DAILY 12/23/2015 01/17/2016 Inactive Benicar 40 mg tablet RxNorm: 938643 1 Tablet(s) PO daily 201512/12/2015 Inactive Benicar 40 mg tablet RxNorm: 766566 1 Tablet(s) PO daily 201504/10/2016 Inactive meloxicam 15 mg tablet RxNorm: 010663 TAKE ONE TABLET BY MOUTH ONE TIME A DAY 11/12/2015 06/08/2016 Inactive meloxicam 15 mg tablet RxNorm: 381725 Tablet(s) TAKE ONE TABLET BY MOUTH ONE TIME A DAY 11/11/2015 11/11/2015 Inactive Lasix 40 mg tablet RxNorm: 115911 Tablet(s) TAKE ONE TABLET BY MOUTH EVERY DAY 10/19/2015 12/19/2016 Inactive diltiazem ER 180 mg capsule,extended release RxNorm: 297808 1 Capsule(s) daily TAKE ONE CAPSULE BY MOUTH ONCE A DAY 09/27/2015 04/16/2016 Inactive Crestor 10 mg tablet RxNorm: 592748 1 Tablet(s) PO Sun09/17/2015 07/12/2016 Inactive [SAVINGS FOR UNINSURED PATIENTS -- BIN:499152, PCN: ASPROD1, Group: [id number], ID# [id number], Process claim through [employer], for questions: [phone]. THIS IS NOT INSURANCE.] hydrocodone 5 mg-acetaminophen 325 mg tablet RxNorm: 960607 1-2 Tablet(s) PO Q6 PRN 09/09/2015 10/08/2015 Inactive Micardis 80 mg tablet RxNorm: 378087 1 Tablet(s) PO daily TAKE ONE TABLET BY MOUTH DAILY 08/23/2015 12/12/2015 Inactive Klor-Con 10 mEq tablet,extended release RxNorm: 061566 Tablet(s) TAKE ONE TABLET BY MOUTH TWICE A DAY 08/23/20152015 Inactive Synthroid 50 mcg tablet RxNorm: 977819 TAKE ONE TABLET BY MOUTH DAILY 07/06/2015 12/22/2015 Inactive meloxicam 15 mg tablet RxNorm: 119783 TAKE ONE TABLET BY MOUTH ONE TIME A DAY 06/22/2015 11/10/2015 Inactive Singulair 10 mg tablet RxNorm: 836735 TAKE ONE TABLET BY MOUTH EVERY DAY 05/18/2015 07/16/2016 Inactive Micardis 80 mg tablet RxNorm: 268930 TAKE ONE TABLET BY MOUTH DAILY 02/22/2015 05/04/2015 Inactive gabapentin 600 mg tablet RxNorm: 929158 1 Tablet(s) PO HS as needed 01/15/2015 01/09/2016 Inactive [SAVINGS FOR NON-COVERED DRUGS -- BIN:060309, PCN: ASPROD1, Group : [id number], ID# [id number], Questions: . THIS IS NOT INSURANCE.] diltiazem ER 180 mg capsule,extended release RxNorm: 915789 TAKE ONE CAPSULE BY MOUTH ONCE A DAY 01/07/2015 09/26/2015 Inactive meloxicam 15 mg tablet RxNorm: 632619 TAKE ONE TABLET BY MOUTH ONE TIME A DAY 11/09/2014 05/07/2015 Inactive gabapentin 600 mg tablet RxNorm: 672716 1 Tablet(s) PO HS as needed 10/13/2014 01/14/2015 Inactive [SAVINGS FOR UNINSURED PATIENTS -- BIN:309274, PCN: ASPROD1, Group: [id number], ID# [id number], Process claim through [employer], for questions: . THIS IS NOT INSURANCE.] omeprazole 20 mg tablet,delayed release RxNorm: 825493 1 Tablet(s) PO daily 10/13/2014 11/11/2014 Inactive Synthroid 50 mcg tablet RxNorm: 256863 TAKE ONE TABLET BY MOUTH EVERY DAY 10/12/2014 01/09/2015 Inactive Synthroid 50 mcg tablet RxNorm: 189629 Tablet(s) TAKE ONE TABLET BY MOUTH EVERY DAY 10/12/2014 10/11/2014 Inactive [SAVINGS FOR UNINSURED PATIENTS -- BIN:163630, PCN: ASPROD1, Group: [id number], ID# [id number], Process claim through [employer], for questions: . THIS IS NOT INSURANCE.] Lasix 40 mg tablet RxNorm: 638585 Tablet(s) PO TAKE ONE TABLET BY MOUTH TWICE A DAY FOR 3 DAYS, THEN RESUME ONE DAILY EXCEPT ON WEDNESDAYS AND FRIDAYS TAKE ONE TWICE DAILY 09/22/2014 05/28/2018 Inactive [SAVINGS FOR UNINSURED PATIENTS -- BIN: 645762, PCN: ASPROD1, Group: [id number], ID# [id number], Process claim through [employer] , for questions: . THIS IS NOT INSURANCE.] Lasix 40 mg tablet RxNorm: 749372 TAKE ONE TABLET BY MOUTH EVERY DAY 09/22/2014 10/18/2015 Inactive Crestor 10 mg tablet RxNorm: 396238 1 Tablet(s) PO Sun08/28/2014 04/24/2015 Inactive [SAVINGS FOR UNINSURED PATIENTS -- BIN:181439, PCN: ASPROD1, Group: [id number], ID# [id number], Process claim through [employer], for questions: . THIS IS NOT INSURANCE.] Crestor 10 mg tablet RxNorm: 675124 1 Tablet(s) PO Sun08/28/2014 08/27/2014 Inactive [SAVINGS FOR UNINSURED PATIENTS -- BIN:848577, PCN: ASPROD1, Group: [id number], ID# [id number], Process claim through [employer], for questions: [phone]. THIS IS NOT INSURANCE.] Micardis 80 mg tablet RxNorm: 072704 TAKE ONE TABLET BY MOUTH EVERY DAY 08/24/2014 12/21/2014 Inactive Zithromax Z-Hebert 250 mg tablet RxNorm: 609799 Tablet(s) PO UD 08/18/2014 Inactive 2 tabs day 1, 1 tabs days 2-5 Anusol-HC 25 mg suppository RxNorm: 0761972 INSERT 1 RECTALLY DAILY NEEDED 07/13/2014 10/10/2014 Inactive Klor-Con 10 mEq tablet,extended release RxNorm: 027222 TAKE ONE TABLET BY MOUTH TWICE A DAY 06/18/2014 12/14/2014 Inactive Lomotil 2.5 mg-0.025 mg tablet RxNorm: 8077796 1 Tablet(s) PO PRN after each loose stool max 8 per day 06/15/201410/12 Inactive one after each loose bm limit 8 per day albuterol sulfate HFA 90 mcg/actuation aerosol inhaler RxNorm: 9065251 1 or2 Puff( s) INH Q4 PRN as needed 05/11/20142013 Inactive albuterol sulfate HFA 90 mcg/actuation aerosol inhaler RxNorm: 5116539 1 or2 Puff( s) INH Q4 PRN as needed 05/11/20142016 Inactive Premarin 0.625 mg/gram vaginal cream RxNorm: 777448 1/2 Gram(s) VAG every other day 05/11/2014 12/06/2014 Inactive Premarin 0.625 mg/gram vaginal cream RxNorm: 303919 1/2 Gram(s) VAG every other day 05/11/2014 05/10/2014 Inactive cefdinir 300 mg capsule RxNorm: 580945 1 Capsule(s) PO BID 06/201405/16/2014 Inactive Rocephin 500 mg solution for injection RxNorm: 621146 1 Milliliter(s) Inj 05/07/2014 05/07/2014 Inactive Singulair 10 mg tablet RxNorm: 811736 TAKE ONE TABLET BY MOUTH EVERY DAY 04/30/2014 10/12/2014 Inactive meloxicam 15 mg tablet RxNorm: 840312 1 Tablet(s) PO daily 11/08/2014 Inactive Crestor 10 mg tablet RxNorm: 057785 1 Tablet(s) PO Sun TAKE ONE TABLET BY MOUTH EVERY DAY 04/16/2014 08/27/2014 Inactive Synthroid 50 mcg tablet RxNorm: 719505 TAKE ONE TABLET BY MOUTH EVERY DAY 04/02/2014 09/28/2014 Inactive diltiazem ER 180 mg capsule,extended release RxNorm: 076561 1 Capsule(s) PO daily 01/05/2014 12/30/2014 Inactive Pennsaid 1.5 % topical drops RxNorm: 676348 Drop(s) TOP APPLY 15 - 20 DROPS TOPICALLY FOUR TIMES A DAY 12/29/2013 Inactive Rocephin 500 mg solution for injection RxNorm: 676117 Inj 12/2612/26/2013 Inactive Kenalog 40 mg/mL suspension for injection RxNorm: 9520743 Milliliter(s) Inj 12/26/2013 12/26/2013 Inactive Micardis 80 mg tablet RxNorm: 251643 Tablet(s) PO TAKE ONE TABLET BY MOUTH EVERY DAY 12/15/2013 08/23/2014 Inactive nystatin 100,000 unit/mL oral suspension RxNorm: 645397 4 Unit(s) PO QID swish and swallow 11/12/2013 12/09/2013 Inactive Kenalog 40 mg/mL suspension for injection RxNorm: 7747501 Milliliter(s) Inj 11/12/2013 11/12/2013 Inactive Lasix 40 mg tablet RxNorm: 118388 Tablet(s) PO TAKE ONE TABLET BY MOUTH TWICE A DAY FOR 3 DAYS, THEN RESUME ONE DAILY EXCEPT ON WEDNESDAYS AND FRIDAYS TAKE ONE TWICE DAILY 10/30/2013 09/21/2014 Inactive Lasix 40 mg tablet RxNorm: 161426 1 Tablet(s) PO daily 201310/29/2013 Inactive Rocephin 500 mg solution for injection RxNorm: 040277 1 Milliliter(s) Inj 10/09/2013 10/09/2013 Inactive metoprolol succinate ER 25 mg tablet,extended release 24 hr RxNorm: 471407 Tablet (s) PO TAKE ONE TABLET BY MOUTH EVERY DAY 10/02/2013 01/06/2014 Inactive metoprolol succinate ER 25 mg tablet,extended release 24 hr RxNorm: 994196 Tablet (s) PO TAKE ONE TABLET BY MOUTH EVERY DAY 08/04/2013 10/01/2013 Inactive Synthroid 50 mcg tablet RxNorm: 190167 Tablet(s) PO TAKE ONE TABLET BY MOUTH EVERY DAY 07/14/2013 04/01/2014 Inactive gabapentin 600 mg tablet RxNorm: 654100 1 Tablet(s) PO Q8 PRN 06/11/2013 06/11/2013 Inactive gabapentin 600 mg tablet RxNorm: 436508 1 Tablet(s) PO Q8 PRN 06/11/2013 03/07/2014 Inactive Neurontin 600 mg tablet RxNorm: 265883 1 Tablet(s) PO Q8 PRN 06/11/2013 Inactive Anusol-HC 25 mg suppository RxNorm: 4185698 Suppository RTL INSERT 1 RECTALLY DAILY NEEDED 04/24/2013 07/12/2014 Inactive metoprolol succinate ER 25 mg tablet,extended release 24 hr RxNorm: 195443 1 Tablet(s) PO daily 04/21/2013 08/03/2013 Inactive Premarin 0.625 mg/gram Vaginal Cream RxNorm: 490947 1/2 Gram(s) VAG every other day 04/03/2013 10/29/2013 Inactive Klor-Con 10 mEq tablet,extended release RxNorm: 898093 1 Tablet(s) PO daily 03/26/2013 03/20/2014 Inactive Klor-Con 10 mEq tablet,extended release RxNorm: 673404 1 Tablet(s) PO BID 03/24/2013 03/23/2013 Inactive Klor-Con 10 mEq tablet,extended release RxNorm: 916237 1 Tablet(s) PO BID 03/24/2013 03/25/2013 Inactive Klor-Con 10 mEq tablet,extended release RxNorm: 820516 1 Tablet(s) PO BID 03/24/2013 03/23/2013 Inactive Augmentin 875 mg-125 mg tablet RxNorm: 245543 1 Tablet(s) PO BID 03/12/2013 03/18/2013 Inactive Augmentin 875 mg-125 mg tablet RxNorm: 224319 1 Tablet(s) PO BID 03/12/2013 03/11/2013 Inactive ciprofloxacin 500 mg tablet RxNorm: 866237 1 Tablet(s) PO BID 03/11/2013 03/17/2013 Inactive ciprofloxacin 500 mg tablet RxNorm: 896980 1 Tablet(s) PO BID 03/11/2013 03/10/2013 Inactive Crestor 10 mg tablet RxNorm: 313310 1 Tablet(s) PO daily 201202/09/2013 Inactive Crestor 10 mg tablet RxNorm: 837870 Tablet(s) PO TAKE ONE TABLET BY MOUTH EVERY DAY 02/10/2013 04/15/2014 Inactive Singulair 10 mg tablet RxNorm: 918167 Tablet(s) PO TAKE ONE TABLET BY MOUTH EVERY DAY 02/04/2013 04/29/2014 Inactive Kenalog 40 mg/mL Susp for Injection RxNorm: 6119419 1 Milliliter(s) Inj 11/21/2012 11/21/2012 Inactive Pennsaid 1.5 % topical drops RxNorm: 279236 15-20 Drop(s) TOP QID 10/28/2012 11/21/2013 Inactive Micardis 80 mg tablet RxNorm: 879467 1 Tablet(s) PO daily 201210/22/2013 Inactive put this on file please, quantitiy increase Pennsaid 1.5 % Topical Drops RxNorm: 937589 15-20 Drop(s) TOP QID 10/28/2012 10/27/2012 Inactive diltiazem ER 180 mg capsule,extended release RxNorm: 861833 1 Capsule(s) PO daily 10/14/2012 10/08/2013 Inactive Pyridium 200 mg tablet RxNorm: 6054928 1 Tablet(s) PO Q8 PRN 10/12/2014 Inactive Flagyl 500 mg tablet RxNorm: 222645 1 Tablet(s) PO TID 201209/10/2012 Inactive Macrobid 100 mg capsule RxNorm: 1951496 1 Capsule(s) PO BID 03/201309/02/2012 Inactive Macrobid 100 mg capsule RxNorm: 1187289 1 Capsule(s) PO BID 03/201309/09/2012 Inactive sulfamethoxazole-trimethoprim 800 mg-160 mg tablet RxNorm: 063796 1 Tablet(s) PO BID 08/05/2012 08/14/2012 Inactive Lasix 40 mg tablet RxNorm: 823353 1 Tablet(s) PO BID pt is taking extra lasix x 3 days, then every sunday and sunday take two lasix pills. 07/15/2012 07/09/2013 Inactive Synthroid 50 mcg tablet RxNorm: 606885 1 Tablet(s) PO daily 07/09/2013 Inactive do not substitute the generic levothyroxine for the synthroid brand name.....she needs brand name synthroid. Klor-Con 10 mEq tablet,extended release RxNorm: 338851 1 Tablet(s) PO BID 07/15/2012 03/23/2013 Inactive Singulair 10 mg tablet RxNorm: 597003 1 Tablet(s) PO daily 02/03/2013 Inactive Lexapro 10 mg tablet RxNorm: 942560 1/2 Tablet(s) PO daily 06/03/2013 Inactive ProAir HFA 90 mcg/actuation Aerosol Inhaler RxNorm: 179526 2 INH Q6 PRN 04/23/2012 01/17/2016 Inactive Lexapro 10 mg tablet RxNorm: 637075 1/2 Tablet(s) PO daily 05/09/2012 Inactive metoprolol succinate ER 50 mg tablet,extended release 24 hr RxNorm: 659529 1 Tablet(s) PO daily 04/09/2012 04/09/2012 Inactive Klor-Con 10 10 mEq tablet,extended release RxNorm: 618730 1 Tablet(s) PO daily 04/01/2012 07/14/2012 Inactive metoprolol succinate ER 50 mg tablet,extended release 24 hr RxNorm: 072444 1/2 Tablet(s) PO BID 03/11/2012 04/08/2012 Inactive clonidine 0.1 mg Tab RxNorm: 950919 1 Tablet(s) PO BID 201103/12/2012 Inactive clonidine 0.1 mg Tab RxNorm: 685341 1 Tablet(s) PO BID 201102/18/2012 Inactive Micardis 80 mg Tab RxNorm: 233599 1 Tablet(s) PO daily 201102/13/2012 Inactive Micardis 80 mg tablet RxNorm: 153168 1 Tablet(s) PO daily 201110/27/2012 Inactive Synthroid 50 mcg tablet RxNorm: 849321 1 Tablet(s) PO daily 07/14/2012 Inactive Tekturna 300 mg Tab RxNorm: 2238037 1 Tablet(s) PO daily 02/1103/12/2012 Inactive Lasix 40 mg Tab RxNorm : 966896 1 Tablet(s) PO daily 12/18/2011 12/17/2011 Inactive Lasix 40 mg tablet RxNorm: 842791 1 Tablet(s) PO daily 201107/14/2012 Inactive Anusol-HC 25 mg Suppository RxNorm: 8368561 1 Suppository RTL QDAY PRN 12/04/2011 04/19/2012 Inactive lactobacillus acidophilus Cap RxNorm: 1 Capsule(s) PO BID 11/20/2011 Inactive lactobacillus acidophilus Cap RxNorm: 1 Capsule(s) PO BID 11/20/2011 Inactive Cipro 500 mg Tab RxNorm: 952474 1 Tablet(s) PO BID 201103/12/2012 Inactive lactobacillus acidophilus Cap RxNorm: 1 Capsule(s) PO BID 11/27/2011 Inactive lactobacillus acidophilus Cap RxNorm: 1 Capsule(s) PO BID 11/20/2011 Inactive Cipro 500 mg Tab RxNorm: 181996 1 Tablet(s) PO BID 201111/20/2011 Inactive Lexapro 10 mg Tab RxNorm: 009319 1 Tablet(s) PO daily 201111/12/2011 Inactive Lexapro 10 mg tablet RxNorm: 570605 1 Tablet(s) PO daily 201104/18/2012 Inactive amlodipine 10 mg Tab RxNorm: 190095 1 Tablet(s) PO daily 201112/03/2011 Inactive amlodipine 5 mg Tab RxNorm: 306128 1 Tablet(s) PO daily 201112/04/2011 Inactive Rocephin 500 mg Solution for Injection RxNorm: 6651190 Inj 11/201109/20/2011 Inactive metoprolol succinate ER 25 mg 24 hr Tab RxNorm: 119129 1 Tablet(s) PO QHS 08/30/2011 09/20/2011 Inactive Ambien 10 mg Tab RxNorm: 675283 1 Tablet(s) PO HS PRN 08/3004/19/2012 Inactive Augmentin 875 mg-125 mg Tab RxNorm: 781778 1 Tablet(s) PO BID 08/25/2011 09/20/2011 Inactive Augmentin 875 mg-125 mg Tab RxNorm: 250074 1 Tablet(s) PO BID 08/25/2011 08/24/2011 Inactive Rocephin 500 mg Solution for Injection RxNorm: 5247046 Inj 08/23/2011 Inactive Levaquin 500 mg Tab RxNorm: 770313 1 Tablet(s) PO daily 201008/30/2011 Inactive chlordiazepoxide-clidinium 5 mg-2.5 mg Cap RxNorm: 874661 1 Capsule(s) PO BID 07/10/2011 04/19/2012 Inactive q 12 hours prn metoprolol succinate ER 100 mg 24 hr Tab RxNorm: 325500 1 Tablet(s) PO daily 05/29/2011 03/12/2012 Inactive Synthroid 50 mcg Tab RxNorm: 681498 1 Tablet(s) PO daily 201008/12/2011 Inactive Ambien CR 12.5 mg Tab RxNorm: 081629 1 Tablet(s) PO HS PRN 05/0908/30/2011 Inactive Ambien 10 mg Tab RxNorm: 856606 1 Tablet(s) PO QHS 201006/07/2011 Inactive Nexium 40 mg Cap RxNorm: 803511 1 Capsule(s) PO daily 05/0403/12/2012 Inactive the patient had tried pepcid, otc priolosec, RX omperazole, failed them all Bactrim DS 800 mg-160 mg Tab RxNorm: 417951 1 Tablet(s) PO BID 04/19/2011 08/30/2011 Inactive triamcinolone acetonide 40 mg/mL Susp for Injection RxNorm: 6091212 1 Milliliter(s ) Inj UD 04/19/2011 04/19/2011 Inactive aspirin 81 mg Tab, Delayed Release RxNorm: 352411 1 Tablet(s) PO daily No Start Date Active 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 Device RxNorm: Miscellaneous QHS sleep apnea, 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 No Start Date Active Cymbalta 30 mg Cap RxNorm: 587028 1 Capsule(s) PO daily No Start Date 03/12/2012 Inactive Nexium 40 mg Cap RxNorm: 038956 Capsule(s) PO No Start Date 05/03/2011 Inactive Benadryl 25 mg capsule RxNorm: 3259535 1 Capsule(s) PO QHS No Start Date 01/03/2017 Inactive Klor-Con 10 10 mEq tablet,extended release RxNorm: 871091 1 Tablet(s) PO daily No Start Date 03/31/2012 Inactive Metamucil Oral RxNorm : Oral No Start Date 10/12/2014 Inactive amlodipine 10 mg Tab RxNorm: 457549 1 Tablet(s) PO daily No Start Date 10/08/2011 Inactive Norvasc 5 mg tablet RxNorm: 620468 1 Tablet(s) PO daily No Start Date 10/12/2014 Inactive Lasix 40 mg Tab RxNorm : 155489 1 Tablet(s) PO daily No Start Date 12/17/2011 Inactive diltiazem ER (XR/XT) 240 mg capsule,extended release, controlled RxNorm: 167643 1 Capsule(s) PO daily No Start Date Inactive Centrum Silver Ultra Women's oral RxNorm: 11201 oral No Start Date 04/24/2018 Inactive Synthroid 50 mcg Tab RxNorm: 767094 1 Tablet(s) PO daily No Start Date 05/14/2011 Inactive Flagyl 500 mg tablet RxNorm: 171881 1 Tablet(s) PO No Start Date 09/03/2012 Inactive one after each loose bm limit 8 per day Boniva 150 mg Tab RxNorm: 962662 1 Tablet(s) PO UD No Start Date 08/30/2011 Inactive monthly Singulair 10 mg tablet RxNorm: 118830 1 Tablet(s) PO daily No Start Date 06/11/2012 Inactive folic acid Oral RxNorm : Oral No Start Date 03/12/2012 Inactive potassium chloride ER 10 mEq tablet,extended release RxNorm: 911719 1 Tablet(s) PO daily No Start Date 01/03/2017 Inactive Probiotic & Acidophilus oral RxNorm: oral No Start Date 04/24/2018 Inactive Librium 10 mg Cap RxNorm: 238044 Capsule(s) PO UD No Start Date 03/12/2012 Inactive q 12 hours prn Crestor 10 mg tablet RxNorm: 169669 1 Tablet(s) PO daily No Start Date 02/09/2013 Inactive multivitamin Cap RxNorm: 1 Capsule(s) PO daily No Start Date 01/17/2016 Inactive metoprolol succinate ER 100 mg 24 hr Tab RxNorm: 939812 1 Tablet(s) PO daily No Start Date 05/28/2011 Inactive Zithromax Z-Hebert 250 mg tablet RxNorm: 117412 Tablet(s) PO UD No Start Date 12/22/2015 Inactive diltiazem ER 180 mg capsule,extended release RxNorm: 323249 1 Capsule(s) PO daily No Start Date 10/13/2012 Inactive ProctoCream-HC 2.5 % rectal cream with applicator RxNorm: 972490 APPLY TO AFFECTED AREAS DIRECTED RTL No Start Date 09/30/2018 Inactive Tekturna 300 mg Tab RxNorm: 4392078 1 Tablet(s) PO daily samples No Start Date 02/11/2012 Inactive Xanax 0.25 mg tablet RxNorm: 896165 1-2 Tablet(s) PO QHS as needed insomnia No Start Date 07/24/2017 Inactive Fish Oil 1,000 mg Cap RxNorm: 1 Capsule(s) PO daily No Start Date 04/24/2018 Inactive ProAir HFA 90 mcg/actuation Aerosol Inhaler RxNorm: 8136418 2 INH Q6 PRN No Start Date 04/22/2012 Inactive chlordiazepoxide-clidinium 5 mg-2.5 mg Cap RxNorm: 485384 1 Capsule(s) PO PRN No Start Date 07/09/2011 Inactive q 12 hours prn Butrans 5 mcg/hour Transderm Patch RxNorm: 454872 1 Patch TD weekly No Start Date 05/26/2012 Inactive Lactobacillus acidophilus tablet RxNorm: 4 Tablet(s) PO daily No Start Date 01/03/2017 Inactive Librax (with clidinium) 5 mg-2.5 mg capsule RxNorm: 203115 1 Capsule(s) PO BID No Start Date 04/18/2012 Inactive Nexium 40 mg capsule,delayed release RxNorm: 809067 Capsule(s) PO PRN No Start Date 10/12/2014 Inactive Tylenol Extra Strength 500 mg tablet RxNorm: 097333 1 Tablet(s) PO BID as needed for pain No Start Date 04/24/2018 Inactive Premarin 0.625 mg/gram Vaginal Cream RxNorm: 078265 Gram(s) VAG No Start Date 03/12/2012 Inactive three times a week, small amt to vaginal tissuesample given metoprolol succinate ER 50 mg tablet,extended release 24 hr RxNorm: 058771 1 Tablet(s) PO daily No Start Date 2011 Inactive Zithromax Z-Hebert 250 mg tablet RxNorm: 649480 Tablet(s) PO UD No Start Date 08/13/2014 Inactive albuterol sulfate HFA 90 mcg/actuation aerosol inhaler RxNorm: 1195159 1 or2 Puff( s) INH Q4 PRN No Start Date 05/10/2014 Inactive Xanax 0.25 mg Tab RxNorm: 759494 1/2-1 Tablet(s) PO Q8 PRN No Start Date 03/12/2012 Inactive metoprolol succinate ER 25 mg tablet,extended release 24 hr RxNorm: 637729 1 Tablet(s) PO daily No Start Date 2012 Inactive Zithromax Z-Hebert 250 mg tablet RxNorm: 185142 1 Tablet(s) PO UD No Start Date 08/10/2016 Inactive Z PACK DIRECTED calcium carbonate 600 mg (1,500 mg) Tab RxNorm: 791202 1 Tablet(s) PO BID No Start Date 01/03/2017 Inactive albuterol sulfate HFA 90 mcg/Actuation Aerosol Inhaler RxNorm: 8545116 1-2 Puff(s ) INH Q4 PRN No Start Date 03/11/2012 Inactive Vitamin D3 2,000 unit capsule RxNorm: 213417 1 Capsule(s) PO daily No Start Date 10/12/2014 Inactive Colace 100 mg Cap RxNorm: 9681155 1 Capsule(s) PO BID No Start Date 01/17/2016 Inactive Neurontin 600 mg tablet RxNorm: 624503 1 Tablet(s) PO Q8 PRN No Start Date 06/09/2013 Inactive Lomotil 2.5 mg-0.025 mg tablet RxNorm: 4166606 1 Tablet(s) PO No Start Date 06/14/2014 Inactive one after each loose bm limit 8 per day Micardis 80 mg Tab RxNorm: 603023 1 Tablet(s) PO daily No Start Date 12/03/2011 Inactive Pyridium 200 mg tablet RxNorm: 1097940 1 Tablet(s) PO Q8 PRN No Start Date 09/10/2012 Inactive Medication Administered Medication Codes Instructions Start Date Status Kenalog 40 mg/mL suspension for injection RxNorm: 1155344 1Mter 08/09/2017 No longer Active ceftriaxone 500 mg solution for injection RxNorm: 1161092 08/09/2017 No longer Active Kenalog 40 mg/mL suspension for injection RxNorm: 5450801 1M01/04/2017 No longer Active Kenalog 40 mg/mL suspension for injection RxNorm: 0501811 Milliliter 08/23/2016 No longer Active Rocephin 500 mg solution for injection RxNorm: 599631 1Milliliter 05/07/2014 No longer Active Kenalog 40 mg/mL suspension for injection RxNorm: 2084467 Milliliter 12/26/2013 No longer Active Rocephin 500 mg solution for injection RxNorm: 517453 12/26/2013 No longer Active Kenalog 40 mg/mL suspension for injection RxNorm: 0236091 Milliliter 11/12/2013 No longer Active Rocephin 500 mg solution for injection RxNorm: 556506 1Milliliter 10/09/2013 No longer Active Kenalog 40 mg/mL Susp for Injection RxNorm: 4444603 1Milliliter 11/21/2012 No longer Active Rocephin 500 mg Solution for Injection RxNorm: 5275052 08/23/2011 No longer Active triamcinolone acetonide 40 mg/mL Susp for Injection RxNorm: 5359209 1MilliliterUD 04/19/2011 No longer Active Immunizations Vaccine [...] Item Item Code Result Date Comp Metabolic Feu178 NA 139 mEq/L 05/29/2018 Comp Metabolic Uny721 K 4.1 mEq/L 05/29/2018 Comp Metabolic Vto883 CL 99 mEq/L 05/29/2018 Comp Metabolic Frh462 CO2 30.0 mEq/L 05/29/2018 Comp Metabolic Mjr649 ANION GAP 14 05/29/2018 Comp Metabolic Mjr282 GLUCOSE 107 mg/dL 05/29/2018 Comp Metabolic Xar045 Creat 0.6 mg/dL 05/29/2018 Comp Metabolic Dzh650 eGFR 95 ml/min/1.73m2 05/29/2018 Comp Metabolic Zhm160 BUN 15 mg/dL 05/29/2018 Comp Metabolic Dmt838 B/C Ratio 23.4 Ratio 05/29/2018 Comp Metabolic Zll073 CALCIUM 9.4 mg/dL 05/29/2018 Comp Metabolic Wbm360 ALK PHOS 52 U/L 05/29/2018 Comp Metabolic Zhw241 AST(SGOT) 16 U/L 05/29/2018 Comp Metabolic Vtr451 ALT(SGPT) 12 U/L 05/29/2018 Comp Metabolic Bnw327 BILI T 1.1 mg/dL 05/29/2018 Comp Metabolic Mse038 ALBUMIN 4.0 g/dL 05/29/2018 Comp Metabolic Vnm588 TPRO 6.5 g/dL 05/29/2018 Comp Metabolic Weh492 GLOB 2.5 g/dL 05/29/2018 Comp Metabolic Fay241 A/G Ratio 1.6 Ratio 05/29/2018 Comp Metabolic Hbx022 Osmo 279 mOsmo 05/29/2018 Cbc With Differential [...] 28.9 pg 05/29/2018 Cbc With Differential Ord2 Crenshaw% 9.0 % 05/29/2018 Cbc With Differential Ord2 [...] 2.05 K/ul 05/29/2018 Cbc With Differential Ord2 Crenshaw ABS# 0.7 K/ul 05/29/2018 Cbc With Differential Ord2 Eos ABS# 0.2 K/ul 05/29/2018 Cbc With Differential Ord2 Baso ABS# 0.0 K/ul 05/29/2018 Tsh Ord6 TSH (3rd IS) 2.05 uIU/mL 05/29/2018 Lipid Ord30 CHOL 191 mg/dL 05/29/2018 Lipid Ord30 HDL 68.0 mg/dl 05/29/2018 Lipid Ord30 TRIG 138 mg/dL 05/29/2018 Lipid Ord30 LDL 95 mg/dL 05/29/2018 Lipid Ord30 C/HDL 2.8 Ratio 05/29/2018 Free T4 Qag627 FREE T4 0.93 ng/dL 05/29/2018 Free T4 Tyg175 FREE T4 0.90 ng/dL 09/12/2017 Cbc With [...] 29.3 pg 09/12/2017 Cbc With Differential Ord2 Crenshaw% 8.7 % 09/12/2017 Cbc With Differential Ord2 [...] 2.72 K/ul 09/12/2017 Cbc With Differential Ord2 [place] ABS# 1.2 K/ul 09/12/2017 Cbc With Differential Ord2 Eos ABS# 0.3 K/ul 09/12/2017 Cbc With Differential Ord2 Baso ABS# 0.1 K/ul 09/12/2017 Comp Metabolic Afk878 NA 140 mEq/L 09/12/2017 Comp Metabolic Pdu979 K 4.3 mEq/L 09/12/2017 Comp Metabolic Dka643 CL 99 mEq/L 09/12/2017 Comp Metabolic Hqi775 CO2 33.0 mEq/L 09/12/2017 Comp Metabolic Vcu032 ANION GAP 12 09/12/2017 Comp Metabolic Cfa145 GLUCOSE 92 mg/dL 09/12/2017 Comp Metabolic Ppp537 Creat 0.7 mg/dL 09/12/2017 Comp Metabolic Ldq212 eGFR 84 ml/min/1.73m2 09/12/2017 Comp Metabolic Cxd780 BUN 18 mg/dL 09/12/2017 Comp Metabolic Nyb213 B/C Ratio 25.4 Ratio 09/12/2017 Comp Metabolic Osd194 CALCIUM 9.3 mg/dL 09/12/2017 Comp Metabolic Lyu054 ALK PHOS 64 U/L 09/12/2017 Comp Metabolic Ajk040 AST(SGOT) 13 U/L 09/12/2017 Comp Metabolic Phc271 ALT(SGPT) 12 U/L 09/12/2017 Comp Metabolic Txe081 BILI T 0.7 mg/dL 09/12/2017 Comp Metabolic Znx518 ALBUMIN 4.0 g/dL 09/12/2017 Comp Metabolic Vlc224 TPRO 6.3 g/dL 09/12/2017 Comp Metabolic Pgl560 GLOB 2.3 g/dL 09/12/2017 Comp Metabolic Poa535 A/G Ratio 1.8 Ratio 09/12/2017 Comp Metabolic Rnp763 Osmo 281 mOsmo 09/12/2017 Lipid Ord30 CHOL [...] 28.8 pg 03/09/2016 Cbc With Differential Ord2 Crenshaw% 8.5 % 03/09/2016 Cbc With Differential Ord2 [...] 2.38 K/ul 03/09/2016 Cbc With Differential Ord2 [place] ABS# 0.8 K/ul 03/09/2016 Cbc With Differential Ord2 Eos ABS# 0.2 K/ul 03/09/2016 Cbc With Differential Ord2 Baso ABS# 0.1 K/ul 03/09/2016 Comp Metabolic Thc160 NA 138 mEq/L 03/09/2016 Comp Metabolic Obq691 K 4.5 mEq/L 03/09/2016 Comp Metabolic Aed645 CL 100 mEq/L 03/09/2016 Comp Metabolic Dsm592 CO2 33.0 mEq/L 03/09/2016 Comp Metabolic Jmw745 ANION GAP 10 03/09/2016 Comp Metabolic Wpz060 GLUCOSE 94 mg/dL 03/09/2016 Comp Metabolic Fzc803 Creat 0.6 mg/dL 03/09/2016 Comp Metabolic Bvw961 eGFR 106 ml/min/1.73m2 03/09/2016 Comp Metabolic Kqf685 BUN 10 mg/dL 03/09/2016 Comp Metabolic Oeq862 B/C Ratio 17.2 Ratio 03/09/2016 Comp Metabolic Biv055 CALCIUM 9.2 mg/dL 03/09/2016 Comp Metabolic Wno751 ALK PHOS 64 U/L 03/09/2016 Comp Metabolic Yxt782 AST(SGOT) 20 U/L 03/09/2016 Comp Metabolic Yrh256 ALT(SGPT) 11 U/L 03/09/2016 Comp Metabolic Glk601 BILI T 0.9 mg/dL 03/09/2016 Comp Metabolic Ksq994 ALBUMIN 4.0 g/dL 03/09/2016 Comp Metabolic Iwe492 TPRO 6.1 g/dL 03/09/2016 Comp Metabolic Wwe229 GLOB 2.1 g/dL 03/09/2016 Comp Metabolic Hum479 A/G Ratio 1.9 Ratio 03/09/2016 Comp Metabolic Tta815 Osmo 274 mOsmo 03/09/2016 Free T4 Ysf646 FREE T4 0.90 ng/dL 03/09/2016 Lipid Ord30 [...] hTSH II 3.25 uIU/mL 09/07/2015 Free T4 Bzv303 FREE T4 0.79 ng/dL 09/07/2015 Comp Metabolic Vpr047 NA 137 mEq/L 09/07/2015 Comp Metabolic Lem663 K 4.0 mEq/L 09/07/2015 Comp Metabolic Bim115 CL 98 mEq/L 09/07/2015 Comp Metabolic Hpp762 CO2 30.0 mEq/L 09/07/2015 Comp Metabolic Oip460 ANION GAP 13 09/07/2015 Comp Metabolic Uyv902 GLUCOSE 101 mg/dL 09/07/2015 Comp Metabolic Opk785 Creat 0.6 mg/dL 09/07/2015 Comp Metabolic Pwv730 eGFR 111 ml/min/1.73m2 09/07/2015 Comp Metabolic Drs190 BUN 16 mg/dL 09/07/2015 Comp Metabolic Myi189 B/C Ratio 28.6 Ratio 09/07/2015 Comp Metabolic Zsu316 CALCIUM 9.4 mg/dL 09/07/2015 Comp Metabolic Yne555 ALK PHOS 68 U/L 09/07/2015 Comp Metabolic Mgr758 AST(SGOT) 16 U/L 09/07/2015 Comp Metabolic Tsy590 ALT(SGPT) 12 U/L 09/07/2015 Comp Metabolic Hwv573 BILI T 0.9 mg/dL 09/07/2015 Comp Metabolic Qlt869 ALBUMIN 4.1 g/dL 09/07/2015 Comp Metabolic Nfd448 TPRO 6.5 g/dL 09/07/2015 Comp Metabolic Lqr212 GLOB 2.4 g/dL 09/07/2015 Comp Metabolic Umj162 A/G Ratio 1.7 Ratio 09/07/2015 Comp Metabolic Xpd137 Osmo 275 mOsmo 09/07/2015 Cbc With Differential [...] Differential Ord2 RDW 14.4 % 09/07/2015 TSH 3822144 TSH 0.920 uIU/ML 08/28/2014 CBC 1205193 WBC 12.5 10e9/L 08/28/2014 CBC 1915962 RBC 3.44 10e12/L 08/28/2014 CBC 3435894 HGB 10.3 g/dL 08/28/2014 CBC 2278016 HCT DET 33.9 % 08/28/2014 CBC 3891846 MCV 98.5 fL 08/28/2014 CBC 1351867 MCH 29.9 pg 08/28/2014 CBC 0128142 MCHC 30.4 g/dL 08/28/2014 CBC 9721666 PLT 412 10e9/L 08/28/2014 CBC 0220848 MPV 10.2 fL 08/28/2014 CBC 2137666 NNEKA % 68.5 % 08/28/2014 CBC 9690663 LY % 20.8 % 08/28/2014 CBC 8970235 MON % 9.9 % 08/28/2014 CBC 4502175 EOS % 0.6 % 08/28/2014 CBC 1739746 BASO % 0.2 % 08/28/2014 CBC 4731983 RDW 15.8 % 08/28/2014 CBC 7666267 ABS NNEKA 8.56 10e9/L 08/28/2014 CBC 0485345 ABS LYMPH 2.60 10e9/L 08/28/2014 CBC 6488727 ABS MONO 1.24 10e9/L 08/28/2014 CBC 5654350 ABS EOS 0.08 10e9/L 08/28/2014 CBC 2530375 ABS BASO 0.03 10e9/L 08/28/2014 CBC 0184866 RDW-SD 55.4 fL 08/28/2014 GFR CALC 4470083 GFR AA >60 ML/MIN 08/28/2014 GFR CALC 7697856 GFR NON-AA >60 ML/MIN 08/28/2014 LIPID GRP HDL TEST 69 MG/DL 08/28/2014 LIPID GRP TRIG 158 MG/DL 08/28/2014 LIPID GRP TEST LDL 96 MG/DL 08/28/2014 LIPID GRP CHOL 197 MG/DL 08/28/2014 LIPID GRP RCHOL/HDL 2.86 RATIO 08/28/2014 LIPID GRP NON-HDL CH 128 MG/DL 08/28/2014 CHEM 14 9585629 AST 14 U/L 08/28/2014 CHEM 14 8388659 ALT 13 IU/L 08/28/2014 CHEM 14 2357458 BUN 15 MG/DL 08/28/2014 CHEM 14 1177911 ALBUMIN 4.2 GM/DL 08/28/2014 CHEM 14 9366953 CHLORIDE 98 MMOL/L 08/28/2014 CHEM 14 2835859 BILI TOT 1.2 MG/DL 08/28/2014 CHEM 14 7070423 ALK PHOS 68 U/L 08/28/2014 CHEM 14 1633742 SODIUM 137 MMOL/L 08/28/2014 CHEM 14 8613594 CREATININE 0.68 MG/DL 08/28/2014 CHEM 14 3041477 CALCIUM 9.1 MG/DL 08/28/2014 CHEM 14 9820344 POTASSIUM 3.7 MMOL/L 08/28/2014 CHEM 14 3157407 PROT TOT 6.2 GM/DL 08/28/2014 CHEM 14 8493393 GLUCOSE 91 MG/DL 08/28/2014 CHEM 14 1557160 BICARB 31 MMOL/L 08/28/2014 CHEM 14 9960475 ANION GAP 8 MEQ/L 08/28/2014 FREE T4 1153308 FREE T4 1.44 NG/DL 08/28/2014 LIPID GRP HDL TEST 73 MG/DL 04/16/2014 LIPID GRP TRIG 131 MG/DL 04/16/2014 LIPID GRP TEST LDL 99 MG/DL 04/16/2014 LIPID GRP CHOL 198 MG/DL 04/16/2014 LIPID GRP RCHOL/HDL 2.71 RATIO 04/16/2014 LIPID GRP NON-HDL CH 125 MG/DL 04/16/2014 CHEM 14 1985556 AST 17 U/L 04/14/2014 CHEM 14 4965647 ALT 17 IU/L 04/14/2014 CHEM 14 5131226 BUN 15 MG/DL 04/14/2014 CHEM 14 7011418 ALBUMIN 4.3 GM/DL 04/14/2014 CHEM 14 3159238 CHLORIDE 96 MMOL/L 04/14/2014 CHEM 14 1871103 BILI TOT 0.9 MG/DL 04/14/2014 CHEM 14 6122196 ALK PHOS 65 U/L 04/14/2014 CHEM 14 2590152 SODIUM 135 MMOL/L 04/14/2014 CHEM 14 5150506 CREATININE 0.69 MG/DL 04/14/2014 CHEM 14 1673495 CALCIUM 9.5 MG/DL 04/14/2014 CHEM 14 9537599 POTASSIUM 4.1 MMOL/L 04/14/2014 CHEM 14 6038337 PROT TOT 6.6 GM/DL 04/14/2014 CHEM 14 7147274 GLUCOSE 104 MG/DL 04/14/2014 CHEM 14 9408567 BICARB 34 MMOL/L 04/14/2014 CHEM 14 4904408 ANION GAP 5 MEQ/L 04/14/2014 A1C HPLC 8590859 A1C HPLC 59750-2 5.0 % 04/14/2014 TSH 8181767 TSH 2.140 uIU/ML 04/14/2014 FREE T4 3778848 FREE T4 1.56 NG/DL 04/14/2014 GFR CALC 6818366 GFR AA >60 ML/MIN 04/14/2014 GFR CALC 4546254 GFR NON-AA >60 ML/MIN 04/14/2014 CBC 2933353 WBC 12.8 10e9/L 04/14/2014 CBC 8645498 RBC 4.44 10e12/L 04/14/2014 CBC 6273681 HGB 13.2 g/dL 04/14/2014 CBC 6306543 HCT DET 41.4 % 04/14/2014 CBC 4713197 MCV 93.2 fL 04/14/2014 CBC 3144341 MCH 29.7 pg 04/14/2014 CBC 4415483 MCHC 31.9 g/dL 04/14/2014 CBC 0802281 PLT 383 10e9/L 04/14/2014 CBC 7110815 MPV 10.1 fL 04/14/2014 CBC 9906486 NNEKA % 65.5 % 04/14/2014 CBC 8624769 LY % 23.0 % 04/14/2014 CBC 0842251 MON % 9.9 % 04/14/2014 CBC 8503789 EOS % 1.3 % 04/14/2014 CBC 1921004 BASO % 0.3 % 04/14/2014 CBC 4141706 RDW 13.7 % 04/14/2014 CBC 9375985 ABS NNEKA 8.38 10e9/L 04/14/2014 CBC 9822844 ABS LYMPH 2.94 10e9/L 04/14/2014 CBC 5749901 ABS MONO 1.27 10e9/L 04/14/2014 CBC 2092134 ABS EOS 0.17 10e9/L 04/14/2014 CBC 3527122 ABS BASO 0.04 10e9/L 04/14/2014 CBC 9341862 RDW-SD 45.9 fL 04/14/2014 A1C HPLC 6439608 A1C HPLC 43657-6 4.9 % 11/13/2013 CHEM 14 8452098 AST 15 U/L 11/12/2013 CHEM 14 5151975 ALT 14 IU/L 11/12/2013 CHEM 14 4782010 BUN 14 MG/DL 11/12/2013 CHEM 14 6308896 ALBUMIN 4.3 GM/DL 11/12/2013 CHEM 14 9328476 CHLORIDE 101 MMOL/L 11/12/2013 CHEM 14 1683238 BILI TOT 0.9 MG/DL 11/12/2013 CHEM 14 0775798 ALK PHOS 67 U/L 11/12/2013 CHEM 14 6504487 SODIUM 139 MMOL/L 11/12/2013 CHEM 14 1251462 CREATININE 0.67 MG/DL 11/12/2013 CHEM 14 5564023 CALCIUM 9.5 MG/DL 11/12/2013 CHEM 14 6539097 POTASSIUM 4.1 MMOL/L 11/12/2013 CHEM 14 2113264 PROT TOT 6.5 GM/DL 11/12/2013 CHEM 14 4520417 GLUCOSE 102 MG/DL 11/12/2013 CHEM 14 3257042 BICARB 30 MMOL/L 11/12/2013 CHEM 14 6493776 ANION GAP 8 MEQ/L 11/12/2013 GFR CALC 8370343 GFR AA >60 ML/MIN 11/12/2013 GFR CALC 5627763 GFR NON-AA >60 ML/MIN 11/12/2013 TSH 6880802 TSH 2.445 uIU/ML 11/12/2013 FREE T4 8737887 FREE T4 1.09 NG/DL 11/12/2013 CBC 8643345 WBC 7.6 10e9/L 11/12/2013 CBC 4649860 RBC 4.42 10e12/L 11/12/2013 CBC 2809648 HGB 13.1 g/dL 11/12/2013 CBC 3335265 HCT DET 41.2 % 11/12/2013 CBC 6276926 MCV 93.2 fL 11/12/2013 CBC 5655067 MCH 29.6 pg 11/12/2013 CBC 9171398 MCHC 31.8 g/dL 11/12/2013 CBC 8933511 PLT 314 10e9/L 11/12/2013 CBC 4130484 MPV 10.4 fL 11/12/2013 CBC 1296883 NNEKA % 59.8 % 11/12/2013 CBC 2979326 LY % 28.1 % 11/12/2013 CBC 6747861 MON % 9.5 % 11/12/2013 CBC 9226500 EOS % 1.8 % 11/12/2013 CBC 3973877 BASO % 0.8 % 11/12/2013 CBC 7005117 RDW 13.8 % 11/12/2013 CBC 1044261 ABS NNEKA 4.54 10e9/L 11/12/2013 CBC 0348157 ABS LYMPH 2.14 10e9/L 11/12/2013 CBC 7661152 ABS MONO 0.72 10e9/L 11/12/2013 CBC 7540047 ABS EOS 0.14 10e9/L 11/12/2013 CBC 5257010 ABS BASO 0.06 10e9/L 11/12/2013 CBC 9346170 RDW-SD 46.0 fL 11/12/2013 LIPID GRP HDL TEST 66 MG/DL 11/12/2013 LIPID GRP TRIG 130 MG/DL 11/12/2013 LIPID GRP TEST LDL 108 MG/DL 11/12/2013 LIPID GRP CHOL 200 MG/DL 11/12/2013 LIPID GRP RCHOL/HDL 3.03 RATIO 11/12/2013 HS ENE ZOS 7327610 HS ENE ZOS IMMUNE 04/04/2013 A1C 9313185 A1C HPLC 26481-0 5.2 % 04/03/2013 GFR CALC 0871830 GFR AA >60 ML/MIN 03/31/2013 GFR CALC 7956108 GFR NON-AA >60 ML/MIN 03/31/2013 TSH 5877422 TSH 2.689 uIU/ML 03/31/2013 LIPID GRP HDL TEST 63 MG/DL 03/31/2013 LIPID GRP TRIG 157 MG/DL 03/31/2013 LIPID GRP TEST LDL 98 MG/DL 03/31/2013 LIPID GRP CHOL 192 MG/DL 03/31/2013 LIPID GRP RCHOL/HDL 3.05 RATIO 03/31/2013 FREE T4 6738863 FREE T4 1.19 NG/DL 03/31/2013 CHEM 14 7437530 AST 16 U/L 03/31/2013 CHEM 14 1944517 ALT 12 IU/L 03/31/2013 CHEM 14 8631117 BUN 17 MG/DL 03/31/2013 CHEM 14 1101197 ALBUMIN 4.5 GM/DL 03/31/2013 CHEM 14 5906504 CHLORIDE 98 MMOL/L 03/31/2013 CHEM 14 9456308 BILI TOT 0.7 MG/DL 03/31/2013 CHEM 14 1344610 ALK PHOS 53 U/L 03/31/2013 CHEM 14 3225781 SODIUM 137 MMOL/L 03/31/2013 CHEM 14 4491980 CREATININE 0.66 MG/DL 03/31/2013 CHEM 14 1662537 CALCIUM 9.6 MG/DL 03/31/2013 CHEM 14 8275048 POTASSIUM 4.2 MMOL/L 03/31/2013 CHEM 14 7646944 PROT TOT 6.7 GM/DL 03/31/2013 CHEM 14 1131917 GLUCOSE 101 MG/DL 03/31/2013 CHEM 14 2995429 BICARB 33 MMOL/L 03/31/2013 CHEM 14 9955820 ANION GAP 6 MEQ/L 03/31/2013 CBC 0956255 WBC 7.5 10e9/L 03/31/2013 CBC 3410212 RBC 4.39 10e12/L 03/31/2013 CBC 1416635 HGB 13.0 g/dL 03/31/2013 CBC 4899755 HCT DET 40.2 % 03/31/2013 CBC 2392392 MCV 91.6 fL 03/31/2013 CBC 6668776 MCH 29.6 pg 03/31/2013 CBC 7898670 MCHC 32.3 g/dL 03/31/2013 CBC 8418739 PLT 305 10e9/L 03/31/2013 CBC 5119552 MPV 10.4 fL 03/31/2013 CBC 5511079 NNEKA % 56.8 % 03/31/2013 CBC 2633528 LY % 30.3 % 03/31/2013 CBC 2641171 MON % 9.8 % 03/31/2013 CBC 5377673 EOS % 2.3 % 03/31/2013 CBC 6283679 BASO % 0.8 % 03/31/2013 CBC 2063139 RDW 13.2 % 03/31/2013 CBC 0419866 ABS NNEKA 4.26 10e9/L 03/31/2013 CBC 2468337 ABS LYMPH 2.27 10e9/L 03/31/2013 CBC 3073724 ABS MONO 0.74 10e9/L 03/31/2013 CBC 8652066 ABS EOS 0.17 10e9/L 03/31/2013 CBC 8802238 ABS BASO 0.06 10e9/L 03/31/2013 CBC 1633069 RDW-SD 43.2 fL 03/31/2013 LIPID GRP HDL TEST 49 MG/DL 09/11/2012 LIPID GRP TRIG 134 MG/DL 09/11/2012 LIPID GRP TEST LDL 81 MG/DL 09/11/2012 LIPID GRP CHOL 157 MG/DL 09/11/2012 LIPID GRP RCHOL/HDL 3.20 RATIO 09/11/2012 TSH 6499784 TSH 2.118 uIU/ML 09/11/2012 CBC 5445166 WBC 7.5 10e9/L 09/11/2012 CBC 0661221 RBC 3.99 10e12/L 09/11/2012 CBC 5703885 HGB 11.7 g/dL 09/11/2012 CBC 5973831 HCT DET 37.7 % 09/11/2012 CBC 3299172 MCV 94.5 fL 09/11/2012 CBC 4870099 MCH 29.3 pg 09/11/2012 CBC 5104373 MCHC 31.0 g/dL 09/11/2012 CBC 3632300 PLT 384 10e9/L 09/11/2012 CBC 8023345 MPV 11.0 fL 09/11/2012 CBC 7455696 NNEKA % 51.7 % 09/11/2012 CBC 7984562 LY % 35.2 % 09/11/2012 CBC 3488016 MON % 10.4 % 09/11/2012 CBC 1236465 EOS % 2.3 % 09/11/2012 CBC 9690567 BASO % 0.4 % 09/11/2012 CBC 0802526 RDW 14.2 % 09/11/2012 CBC 4534470 ABS NNEKA 3.88 10e9/L 09/11/2012 CBC 5708724 ABS LYMPH 2.64 10e9/L 09/11/2012 CBC 7302110 ABS MONO 0.78 10e9/L 09/11/2012 CBC 0222656 ABS EOS 0.17 10e9/L 09/11/2012 CBC 8175430 ABS BASO 0.03 10e9/L 09/11/2012 CBC 2553445 RDW-SD 47.1 fL 09/11/2012 CHEM 14 6235716 AST 16 U/L 09/11/2012 CHEM 14 0368876 ALT 15 IU/L 09/11/2012 CHEM 14 7485057 BUN 11 MG/DL 09/11/2012 CHEM 14 5822633 ALBUMIN 4.2 GM/DL 09/11/2012 CHEM 14 5431984 CHLORIDE 101 MMOL/L 09/11/2012 CHEM 14 4309983 BILI TOT 0.8 MG/DL 09/11/2012 CHEM 14 9717230 ALK PHOS 57 U/L 09/11/2012 CHEM 14 9110607 SODIUM 141 MMOL/L 09/11/2012 CHEM 14 0689142 CREATININE 0.62 MG/DL 09/11/2012 CHEM 14 5087017 CALCIUM 9.5 MG/DL 09/11/2012 CHEM 14 6967362 POTASSIUM 4.7 MMOL/L 09/11/2012 CHEM 14 6498455 PROT TOT 6.6 GM/DL 09/11/2012 CHEM 14 0923436 GLUCOSE 90 MG/DL 09/11/2012 CHEM 14 1599860 BICARB 32 MMOL/L 09/11/2012 CHEM 14 3374895 ANION GAP 8 MEQ/L 09/11/2012 A1C HPLC 9718872 A1C HPLC 10832-5 4.5 % 09/11/2012 GFR CALC 4336306 GFR AA >60 ML/MIN 09/11/2012 GFR CALC 2276679 GFR NON-AA >60 ML/MIN 09/11/2012 FREE T4 7666876 FREE T4 1.30 NG/DL 09/11/2012 BMP 7101618 GLUCOSE 93 MG/DL 04/16/2012 BMP 7597915 CREATININE 0.64 MG/DL 04/16/2012 BMP 6625622 BUN 12 MG/DL 04/16/2012 BMP 3066473 SODIUM 139 MMOL/L 04/16/2012 BMP 1005055 POTASSIUM 4.1 MMOL/L 04/16/2012 BMP 4330389 CHLORIDE 99 MMOL/L 04/16/2012 BMP 9293224 BICARB 32 MMOL/L 04/16/2012 BMP 8296570 ANION GAP 8 MEQ/L 04/16/2012 BMP 0172248 CALCIUM 9.8 MG/DL 04/16/2012 CBC 1417475 WBC 8.5 10e9/L 04/16/2012 CBC 0195331 RBC 3.98 10e12/L 04/16/2012 CBC 3750284 HGB 11.5 g/dL 04/16/2012 CBC 0469294 HCT DET 36.7 % 04/16/2012 CBC 8809340 MCV 92.2 fL 04/16/2012 CBC 7237941 MCH 28.9 pg 04/16/2012 CBC 4298802 MCHC 31.3 g/dL 04/16/2012 CBC 8117130 PLT 321 10e9/L 04/16/2012 CBC 2031276 MPV 10.2 fL 04/16/2012 CBC 4304867 NNEKA % 64.3 % 04/16/2012 CBC 4861917 LY % 24.3 % 04/16/2012 CBC 5538836 MON % 9.0 % 04/16/2012 CBC 3420853 EOS % 1.9 % 04/16/2012 CBC 5107517 BASO % 0.5 % 04/16/2012 CBC 9506573 RDW 13.7 % 04/16/2012 CBC 3157379 ABS NNEKA 5.47 10e9/L 04/16/2012 CBC 4360258 ABS LYMPH 2.07 10e9/L 04/16/2012 CBC 2692774 ABS MONO 0.77 10e9/L 04/16/2012 CBC 3045942 ABS EOS 0.16 10e9/L 04/16/2012 CBC 9455998 ABS BASO 0.04 10e9/L 04/16/2012 CBC 9552175 RDW-SD 44.6 fL 04/16/2012 GFR CALC 5852270 GFR AA >60 ML/MIN 04/16/2012 GFR CALC 6313097 GFR NON-AA >60 ML/MIN 04/16/2012 URINALYSIS NONAUTO W/O SCOPE 14271 Specific [place] 1.015 DateTime(Free Text in Aprima) URINALYSIS NONAUTO W/O SCOPE 20311 PH 6.0 DateTime(Free Text in Aprima) URINALYSIS NONAUTO W/O SCOPE 37201 GLUCOSE neg DateTime( Free Text in Aprima) URINALYSIS NONAUTO W/O SCOPE 86117 Protein neg DateTime( Free Text in Aprima) URINALYSIS NONAUTO W/O SCOPE 94235 Blood 1+ DateTime(Free Text in Aprima) URINALYSIS NONAUTO W/O SCOPE 70066 Bilirubin neg DateTime(Free Text in Aprima) URINALYSIS NONAUTO W/O SCOPE 81231 Ketones neg DateTime( Free Text in Aprima) URINALYSIS NONAUTO W/O SCOPE 88069 Urobilinogen neg DateTime(Free Text in Aprima) URINALYSIS NONAUTO W/O SCOPE 53007 Nitrite positive DateTime(Free Text in Aprima) URINALYSIS NONAUTO W/O SCOPE 57508 Leukocytes 1+ DateTime(Free Text in Aprima) UA 20699 Specific [place] 1.015 DateTime(Free Text in Aprima ) UA 48866 PH 5 DateTime(Free Text in Aprima) UA 17085 GLUCOSE neg DateTime(Free Text in Aprima) UA 83323 Protein neg DateTime(Free Text in Aprima) UA 64095 Blood neg DateTime(Free Text in Aprima) UA 88394 Bilirubin neg DateTime(Free Text in Aprima) UA 44975 Ketones neg DateTime(Free Text in Aprima) UA 27650 Urobilinogen neg DateTime(Free Text in Aprima) UA 49450 Nitrite neg DateTime(Free Text in Aprima) UA 19986 Leukocytes neg DateTime(Free Text in Aprima) URINALYSIS NONAUTO W/O SCOPE 86966 Specific [place] 1.010 DateTime(Free Text in Aprima) URINALYSIS NONAUTO W/O SCOPE 84768 PH 5.0 DateTime(Free Text in Aprima) URINALYSIS NONAUTO W/O SCOPE 41064 GLUCOSE NEG DateTime( Free Text in Aprima) URINALYSIS NONAUTO W/O SCOPE 95977 Protein NEG DateTime( Free Text in Aprima) URINALYSIS NONAUTO W/O SCOPE 32330 Blood NEG DateTime(Free Text in Aprima) URINALYSIS NONAUTO W/O SCOPE 07640 Bilirubin NEG DateTime(Free Text in Aprima) URINALYSIS NONAUTO W/O SCOPE 33289 Ketones NEG DateTime( Free Text in Aprima) URINALYSIS NONAUTO W/O SCOPE 71248 Urobilinogen NEG DateTime(Free Text in Aprima) URINALYSIS NONAUTO W/O SCOPE 63016 Nitrite NEG DateTime( Free Text in Aprima) URINALYSIS NONAUTO W/O SCOPE 58655 Leukocytes ++ DateTime(Free Text in Aprima) URINALYSIS NONAUTO W/O SCOPE 06890 Specific [place] 1.010 DateTime(Free Text in Aprima) URINALYSIS NONAUTO W/O SCOPE 01088 PH 6.0 DateTime(Free Text in Aprima) URINALYSIS NONAUTO W/O SCOPE 34323 GLUCOSE NEG DateTime( Free Text in Aprima) URINALYSIS NONAUTO W/O SCOPE 81857 Protein NEG DateTime( Free Text in Aprima) URINALYSIS NONAUTO W/O SCOPE 78744 Blood NEG DateTime(Free Text in Aprima)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 reflux[ICD9: 530.81] [facility] CPT-4: 79883 04/19/2011 Plan of Care Planned Activity Notes [...] this time. 09/03/2018 Appointment: Concepción Flanagan WPtel: [address] [place], [place] [address] (15 min) Moderate 09/03/2018 Patient Education: Patient [...] and back. 05/29/2018 Appointment: Concepción Flanagan [facility]Ptel[facility] (15 min) Moderate 05/29/2018 Patient Education: Patient Medication Summary Completed 05/29/2018 Care Plan: Referral Order SNOMED-CT : 104413330 Pending 05/29/2018 Visit Plan: Wound Instructions - [...] process. 02/06/2018 Appointment: Hayley London WPtel: [phone] [facility] (15 min) Moderate 02/06/2018 Patient Education: Patient [...] medications. 01/23/2018 Appointment: Concepción Flanagan WPtel: [address] [facility] [address] (15 min) Moderate 01/23/2018 Patient Education: Patient Medication Summary Completed 01/23/2018 Visit Plan: Cough - improved - sinusitis resolved. 09/26/2017 Appointment: Concepción Flanagan WPtel[phone] [facility] (15 min) Moderate 09/26/2017 Patient Education: Patient Medication Summary Completed 09/26/2017 Visit Plan: Acute Maxillary Sinusitis - if not improving - pt would like to see an ENT - Hortensia Tompkins in [place]. Treatment as follows: cefdinir - antibiotic twice [...] hydrocodone. 09/12/2017 Appointment: Concepción Flanagan WPtel[phone] [facility] (15 min) Moderate 09/12/2017 Patient Education: [...] allergy spray. 08/31/2017 Appointment: Hay[facility] London [facility]Ptel[facility] (30 min) Complex 08/31/2017 Patient Education: Patient Medication Summary Completed 08/31/2017 Visit Plan: URI - Pt advised to increase fluids, vitamin C. Discussed natural and expected course of this diagnosis and need to alert me if symptoms do not follow expected course, or if any worse. RX sent to patient' s pharmacy. 08/09/2017 Appointment: Chaparrita Arrieta WPtel: [facility] (30 min) Complex 08/09/2017 Patient Education: Patient [...] 05/07/2017 Appointment: Concepción Flanagan WPtel[facility] [facility] (15 min) Moderate 05/07/2017 Patient Education: Patient [...] care surrogate. 04/12/2017 Appointment: Hayley London WPtel: [address] [place], [place] [address] [facility] - Annual Wellness Visit 04/12/2017 Patient Education: Patient Medication Summary Completed 04/12/2017 Appointment: Nurse Visit 02/15/2017 Patient Education: Patient Medication Summary Completed 02/15/2017 Visit Plan: Dwvlq-qeogjhvllv-phgxc zpack when finished with cipro-follow up chest [...] day-follow up Sunday02/02/2017 Appointment: Chaparrita Arrieta WPtel: [phone] [place] (15 min) Moderate 02/02/2017 Patient Education: Patient Medication Summary Completed 02/02/2017 Patient Education: Obesity Completed 02/02/2017 Visit Plan: Sinusitis - Pt has acute infection - pain in face, maxillary region, Pt informed to use decongestant, RX given to patient, sinus rinses also recommended. Call if symptoms do not show improvement. 01/15/2017 Appointment: Chaparrita Arrieta WPtel: [phone] [phone] (10 min) Simple 01/15/2017 Patient Education: Patient [...] shot today 01/04/2017 Appointment: Concepción Flanagan WPtel: [address] [facility] [place] (15 min) Moderate 01/04/2017 Patient Education: Patient [...] medication (lexapro). 09/07/2016 Appointment: Concepción Flanagan WPtel: [phone] [facility] (30 min) Complex 09/07/2016 Patient Education: [...] at home. 07/06/2016 Appointment: Concepción Flanagan WPtel: [facility] [facility] (15 min) Moderate 07/06/2016 Patient Education: [...] TWICE DAILY 06/08/2016 Appointment: Concepción Flanagan WPtel: [facility] [facility] (15 min) Moderate 06/08/2016 Patient Education: [...] 04/06/2016 Appointment: Concepción Flanagan WPtel: [phone] [facility] (15 min) Moderate 04/06/2016 Patient Education: [...] for Mikala. 01/18/2016 Appointment: Concepción Flanagan WPtel: [facility] (15 min) Moderate 01/18/2016 Patient Education: Patient [...] discuss with her son who is a Relocation Commissioner - and consider re-evaluation for nasal pillows with her cpap since she could not tolerate a face mask cpap in the past. 12/25/2014 Appointment: Concepción Flanagan WPtel: [facility] Follow up 12/25/2014 Patient Education: Patient Medication [...] at home. 10/13/2014 Appointment: Concepción Flanagan WPtel: [facility] Follow up 10/13/2014 Patient Education: Patient Medication [...] her . 08/28/2014 Appointment: Concepción Flanagan WPtel: [facility] Follow up 08/28/2014 Patient Education: Patient [...] monitor creatinine. 04/16/2014 Appointment: Concepción Flanagan WPtel: [phone] [facility] Follow up 04/16/2014 Patient Education: Patient Medication Summary Completed 04/16/2014 Patient Education: Patient Medication Summary Completed 04/14/2014 Patient Education: Hypertension Completed 04/14/2014 Visit Plan: Wound Instructions - Pt was instruced to keep the wound clean, wash with antibacterial soap, use triple antibiotic ointment, call if redness, pustular drainage, or any other acute conerns. 01/27/2014 Appointment: Concepción Flanagan WPtel: [phone] [facility] [facility] Procedure 01/27/2014 Patient Education: Patient [...] home eval. 01/21/2014 Appointment: Concepción Flanagan WPtel: [phone] [facility] Follow up 01/21/2014 Patient Education: Patient Medication Summary Completed 01/21/2014 Patient Education: Hypertension Completed 01/21/2014 Visit Plan: Hypotension - Bradycardia - pt to stop her metroprolol - check bp and heart rate twice daily and monitor symptoms. Call if bp uncontrolled- or heart rate to elevated. 01/07/2014 Appointment: Concepción Flanagan WPtel: 101[address] [facility] [address] Follow up 01/07/2014 Patient Education: Hypertension Completed [...] and swallow 11/12/2013 Appointment: Chaparrita Arrieta WPtel: [address] [place], [place] [phone] [facility] 11/12/2013 Patient Education: Patient Medication Summary Completed 11/12/2013 Patient Education: Hypertension Completed 11/12/2013 Visit Plan: Sinusitis - Pt has acute infection - pain in face, maxillary region, Pt informed to use decongestant, RX given to patient, sinus rinses also recommended. Call if symptoms do not show improvement. 10/09/2013 Appointment: Chaparrita Arrieta WPtel: [address] [place], [place] [phone] [facility] 10/09/2013 Patient Education: Patient Medication Summary Completed [...] UA 04/03/2013 Appointment: Concepción Flanagan WPtel: [phone] [facility] Follow up 04/03/2013 Patient Education: Patient Medication Summary Completed 04/03/2013 Patient Education: Hypertension Completed 04/03/2013 Patient Education: Patient Medication Summary Completed 03/31/2013 Patient Education: Hypertension Completed 03/31/2013 Visit Plan: ua performed - sent for culture if indicated. 03/21/2013 Appointment: Concepción Flanagan WPtel: [phone] [facility] [address] Lab Draw 03/21/2013 Patient Education: Patient Medication [...] edema. 01/06/2013 Appointment: Concepción Flanagan WPtel: [phone] [facility] [address] Follow up 01/06/2013 Patient Education: Patient Medication Summary Completed 01/06/2013 Patient Education: Hypertension Completed 01/06/2013 Visit Plan: Rytygjfbu-Okuwen-sajvuzgv not well controlled- KENALOG injection today in [...] to reduce peripheral edema. 10/28/2012 Appointment: Concepción Flanagantel: [phone] Follow up 10/28/2012 Patient Education: Patient Medication [...] 09/30/2012 Appointment: Concepción Flanagan WPtel: [phone] [facility] Follow up 09/30/2012 Patient Education: Patient Medication Summary Completed 09/30/2012 Patient Education: Hypertension Completed 09/30/2012 Appointment: Concepción Flanagan WPtel: [phone] [facility] Lab Draw 09/11/2012 Patient Education: Patient Medication [...] - resolved 08/14/2012 Appointment: Concepción Flanagan WPtel: [address] [facility] [address] [place] Follow up 08/14/2012 Patient Education: Patient Medication Summary Completed 08/14/2012 Patient Education: Hypertension Completed 08/14/2012 Visit Plan: Cellulitis - start with generic Bactrim DS as directed, return to clinic as previously directed, call for acute change in symptoms, worsening redness, warmth, discharge. 08/05/2012 Appointment: Concepción Flanagan WPtel: [address] [place], [place] [id number] Follow up 08/05/2012 Patient Education: Patient Medication [...] soften stools. 07/15/2012 Appointment: Concepción Flanagan WPtel: [address] [place] [address] follow up 07/15/2012 Patient Education: Patient Medication Summary Completed 07/15/2012 Patient Education: Hypertension Completed 07/15/2012 Visit Plan: Subungual discoloratiion of toenail- June 10 pt is to see Dr[address] Bee - I have discussed the case with the pt and Dr. bee and she will likely have a biopsy of the digit and avulsion of the nail. 05/27/2012 Appointment: Concepción Flanagan WPtel: [address] [place], [place] [phone] [facility] 05/27/2012 Patient Education: Patient Medication Summary Completed 05/27/2012 Appointment: Chaparrita Arrieta WPtel: [address] [place], [place] [address] Follow up 05/16/2012 Visit Plan: Obesity - [...] Influenza vaccine 05/03/2012 Appointment: Chaparrita Arrieta WPtel: [facility] [place] [id number] Follow up 05/03/2012 Patient Education: Patient Medication Summary Completed 05/03/2012 Visit Plan: Wound Instructions - Pt was instruced to keep the wound clean, wash with antibacterial soap, use triple antibiotic ointment, call if redness, pustular drainage, or any other acute conerns. 04/23/2012 Appointment: Concepción Flanagan WPtel: [facility]5 [facility] [address] Surgical Procedure 04/23/2012 Patient Education: Patient Medication Summary Completed 04/23/2012 Appointment: Concepción Flanagan WPtel: [facility]5 [facility] [address] [place] Lab Draw 04/16/2012 Patient Education: Patient [...] readings at home. Recommend follow up with dampener for clearance before knee surgery. Will get [...] thighs. 03/25/2012 Appointment: Concepción Flanagan WPtel: [phone] [facility] [address] Other 03/25/2012 Patient Education: Patient Medication Summary [...] of lesion. 03/12/2012 Appointment: Chaparrita Arrieta WPtel: [facility]5 [facility] Other 03/12/2012 Patient Education: Patient [...] at home. 01/23/2012 Appointment: Concepción Flanagan WPtel: [address] [facility] [address] Other 01/23/2012 Patient Education: Patient Medication Summary Completed 01/23/2012 Patient Education: High Blood Pressure: Essential Hypertension Completed 2011 Visit Plan: Breast hkei-hjsp-lqltfwtvo natural and expected course of this diagnosis and to alert me if symptoms do not follow expected course, or if any worse. Plan for diagnostic mammogram, in meantime, instructed patient to get more supportive bra, use anti-inflammatories and monitor symptoms. Patient verbalized understanding of plan. 01/12/2012 Appointment: Chaparrita Arrieta WPtel: 1011 [facility] Other 01/12/2012 Patient Education: Patient Medication Summary [...] current medications. 12/25/2011 Appointment: Concepción Flanagan WPtel: [facility]4 [facility] [address] Other 12/25/2011 Patient Education: Patient Medication Summary [...] COMPRESSION SOCKS. 12/04/2011 Appointment: Concepción Flanagan WPtel: [facility] [place] Other 12/04/2011 Patient Education: Patient Medication Summary Completed 12/04/2011 Patient Education: High Blood Pressure: Essential Hypertension Completed 2011 Appointment: Chaparrita Arrieta WPtel: [facility] [place] Lab Draw 12/01/2011 Patient Education: Patient Medication Summary Completed 12/01/2011 Appointment: Concepción Flanagan WPtel: [phone] [facility] [place] Lab Draw 11/20/2011 Patient Education: [...] acutely worsen. 09/20/2011 Appointment: Concepción Flanagan WPtel: [address] [place] [address] Other 09/20/2011 Patient Education: Patient Medication Summary Completed 09/20/2011 Patient Education: High Blood Pressure: Essential Hypertension Completed 2011 Appointment: Concepción Flangaan WPtel: [address] [place], [place] [address] Other 09/13/2011 Visit Plan: Hypertension - The [...] benefits of treament with the above medications. Qvgoeym-coqshwhu-[place] negative 09/06/2011 Appointment: Chaparrita Arrieta WPtel: [address] [place], [place] [id number] [place] [address] Other 09/06/2011 Patient Education: Patient Medication Summary [...] they worsen. 08/30/2011 Appointment: Concepción Flanagan WPtel: [facility] Other 08/30/2011 Patient Education: Patient Medication Summary [...] patient's pharmacy. 08/23/2011 Appointment: Chaparrita Arrieta WPtel: [facility] Other 08/23/2011 Patient Education: Patient Medication Summary Completed 08/23/2011 Visit Plan: Labial cyst-discussed natural and expected course of this diagnosis and to alert me if symtpoms do not follow expected course, or if any worse. Patient and verbalized understanding. 08/09/2011 Appointment: Chaparrita Arrieta WPtel: [address] [place] [address] Other 08/09/2011 Patient Education: Patient Medication Summary [...] not improving. 05/04/2011 Appointment: Concepción Flanagan WPtel: [facility]5 [facility] [address] [place] Other 05/04/2011 Patient Education: Patient Medication [...] 40mg daily. 04/19/2011 Appointment: Chaparrita Arrieta WPtel: [facility]6 [phone] [place] Other 04/19/2011 Patient Education: Patient Medication Summary Completed 04/19/2011 Referral: External, Ordering Provider Referral Appointment Requested Instructions Comment . Hypertension - well controlled - continue [...] further attempt to reduce peripheral edema. . Medicare Exam - today we discussed [...] [employer] paperwork for health care surrogate. . Sinusitis - Pt has acute infection - pain in face, maxillary region, Pt informed to use decongestant, RX given to patient, sinus rinses also recommended. Call if symptoms do not show improvement. . Cellulitis - start with generic Bactrim DS as directed, return to clinic as previously directed, call for acute change in symptoms, worsening redness, warmth, discharge. Use your albuterol inhaler 1-2 puffs every 4-6 hours as needed for cough/SOA. Call if your symptoms do not improve, or if any worse.. Ktjumxtpl-Qqixdn-ojgrtkqp not well controlled-KENALOG injection today in the office-use albuterol as needed. Instructed patient to continue with singulair daily and call if symptoms do not improve, or worsen. MIRALAX TO BE STARTED AND TAKEN DAILY [...] use this daily to help soften stools. stop metoprolol blood pressure and heart rate [...] UA . Wound Instructions - Pt was instruced to keep the wound clean, wash with antibacterial soap, use triple antibiotic ointment, call if redness, pustular drainage, or any other acute conerns. . continue with benicar 40mg, and increase her diltiazem to 240mg daily . ua performed - sent for culture if indicated. FLONASE 1 SPRAY EACH NARE DAILY PREDNISONE 20MG TWICE DAILY X 5 DAYS CALL SUNDAY IF NOT BETTER AND WE WILL SEND IN A PRESCRIPTION FOR ZITHROMAX . Sinusitis - Pt has acute infection - pain in face, maxillary region, Pt informed to use decongestant, RX given to patient, sinus rinses also recommended. Call if symptoms do not show improvement. . Obesity - chronic issue with this [...] see an ENT - Hortensia Tompkins in [place]. Treatment as follows: cefdinir - antibiotic twice [...] pain - symptoms - refilled hydrocodone. . Hypertension - well controlled - continue [...] discuss with her son who is a Relocation Commissioner - and consider re-evaluation for nasal pillows [...] twice daily and monitor symptoms. . Breast ukhv-osna-ihduqrxjm natural and expected course of this diagnosis [...] not improve. Nocturnal hypoxia-overnight oxygen study . Hypertension - well controlled - continue with current medications, continue with no added salt diet. Pt has been encouraged to exercise daily. The pt has been advised to call the office if there are any acute concerns about change in blood pressure readings at home. . Medicare Exam - today we discussed [...] drainage, or any other acute conerns. . Cerumen Impaction - The impacted cerumen [...] patient stabilized during the removal process. . Wound Instructions - Pt was instructed to keep the wound clean, call if redness, pustular drainage, or any other acute concerns. Cymbalta 30mg daily Call with any side [...] benefits of treament with the above medications. Woexkcz-rhtcftjn-[place] negative . Allergies - chronic - recommended pt [...] to reduce peripheral edema. . Hypertension - uncontrolled - the patient's [...] or if they worsen. . Hypertension - well controlled - continue [...] office if the symptoms are not improving. . Hypertension - well controlled - continue with current medications, continue with no added salt diet. Pt has been encouraged to exercise daily. The pt has been advised to call the office if there are any acute concerns about change in blood pressure readings at home. Cellulitis - resolved . Hypertension - uncontrolled - the patient's [...] pt to call if symptoms acutely worsen. 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 . Hypertension [...] supplier come out to do home eval. . Subungual discoloratiion of toenail- June 10 [...] to assure normal liver response to medications. Continue warm moist compresses for the next [...] order an overnight oxygen for Mikala. . Hypertension - per home reports, her [...] any worse. RX sent to patient's pharmacy. Start Norvasc (amlodipine) 5mg daily Stop the [...] posterior arm-recommend removal and biopsy of lesion. RECOMMEND SHINGLES VACCINE . Medicare Exam - [...] readings at home. Recommend follow up with dampener for clearance before knee surgery. Will get [...] daytime fatigue improved-will fax today's note to [employer] for re-certification of oxygen. . Hypertension - [...] daytime fatigue improved-will fax today's note to [employer] for re-certification of oxygen. . Sinusitis - [...] worse. RX sent to patient's pharmacy. . Utvzb-jmpbdyjplo-tvjas zpack when finished with cipro- follow up chest xray on Sunday UTI-finish cipro and repeat UA . Cough - improved - sinusitis resolved. PATIENT IS TO CHECK BLOOD PRESSURE AND [...] months based on previous levels of control. Urge incontinence -Pt has urge incontinence - [...]
--- OUTSIDE RECORDS SUMMARY | 2018-12-27 10:28 | XMS REPORT | CCD ---
Author Author Chaparrita Arrieta Organization [facility] Address [address] [place] [address] Phone Care Team Providers Care Press Leader Name Role Phone [facility] Un[facility] CCM Unavailable Summary Purpose Interface Exchange Insurance Providers Payer name Policy type / Coverage type Covered green party ID Effective Begin Date Effective End Date WPS Medicare Part B Medicare Part B [id number] 2018 Unknown AARP Medicare Part B [id number] Unknown Family history Son Diagnosis Age At [...] status Unknown 04/19/[address]: 0134670 Quit over 10 years ago 40 pack/year history 04/19/2011 Allergies, Adverse Reactions, Alerts Substance Reaction Codes Entered Date Inactivated Date Status * NO KNOWN FOOD ALLERGIES Unknown 09/20/2011 No Inactive Date Active * NO KNOWN ENVIRONMENTAL ALLERGIES Unknown 09/20/2011 No Inactive Date Active MORPHINE SULFATE RxNorm: 7052 04/12/2017 No Inactive Date Active Past Medical History Illness Codes Condition Status Onset Date Resolved Date Atrophy of thyroid (acquired) ICD-9: 244.8 ICD-10: [...] Problems Condition Codes Effective Dates Condition Status Atrophy of thyroid (acquired) ICD-9: 244.8 ICD-10: [...] Start Date Stop Date Status Fill Instructions ProctoCream-HC 2.5 % rectal cream with applicator RxNorm: 876547 APPLY TO AFFECTED AREAS DIRECTED RTL 10/01/2018 No Stop Date Active Cartia XT 240 mg capsule,extended release RxNorm: 665708 TAKE ONE CAPSULE BY MOUTH DAILY 09/23/2018 09/17/2019 Active Singulair 10 mg tablet RxNorm: 408552 TAKE ONE TABLET BY MOUTH EVERY DAY 09/06/2018 10/30/2019 Active Klor-Con 10 mEq tablet,extended release RxNorm: 389662 TAKE ONE TABLET BY MOUTH TWICE A DAY 09/06/2018 06/02/2019 Active Xanax 0.25 mg tablet RxNorm: 902821 1-2 Tablet(s) PO QHS as needed insomnia 08/26/2018 11/23/2018 Active Voltaren 1 % topical gel RxNorm: 439383 APPLY TWO GRAMS TOPICALLY FOUR TIMES A DAY BILATERAL KNEES AND LOWER BACK 06/26/2018 09/23/2018 Inactive Lasix 40 mg tablet RxNorm: 394243 TAKE ONE TABLET BY MOUTH DAILY 06/20/2018 12/16/2018 Active Voltaren 1 % topical gel RxNorm: 816091 2 Gram(s) TOP QID bilateral knees and low back 05/29/2018 06/25/2018 Inactive Synthroid 50 mcg tablet RxNorm: 083416 Tablet(s) TAKE ONE TABLET BY MOUTH DAILY 05/17/2018 11/12/2018 Active Synthroid 50 mcg tablet RxNorm: 292662 TAKE ONE TABLET BY MOUTH DAILY 05/16/2018 05/16/2018 Inactive hydrocodone 5 mg-acetaminophen 325 mg tablet RxNorm: 585185 1/2 Tablet(s) PO QID as needed 05/15/2018 06/13/2018 Inactive Keflex 500 mg capsule RxNorm: 089750 1 Capsule(s) PO TID PRN 11/201705/06/2018 Inactive Silvadene 1 % topical cream RxNorm: 404772 1 Application TOP BID 04/30/2018 05/09/2018 Inactive Anusol-HC 25 mg rectal suppository RxNorm: 9139879 1 Suppository PRN INSERT 1 RECTALLY DAILY NEEDED 04/25/2018 No Stop Date Active Colace 100 mg capsule RxNorm: 7615238 1 Capsule(s) PO daily as needed 04/25/2018 No Stop Date Active meloxicam 15 mg tablet RxNorm: 161291 1 Tablet(s) PO daily TAKE ONE TABLET BY MOUTH ONE TIME A DAY 04/25/20182018 Active Silvadene 1 % topical cream RxNorm: 745464 1 Application TOP BID 04/25/2018 04/29/2018 Inactive Benicar 40 mg tablet RxNorm: 700008 TAKE ONE TABLET BY MOUTH DAILY 04/04/2018 03/29/2019 Active Xanax 0.25 mg tablet RxNorm: 504842 1-2 Tablet(s) PO QHS as needed insomnia 03/07/2018 06/04/2018 Inactive Lasix 40 mg tablet RxNorm: 473258 TAKE ONE TABLET BY MOUTH DAILY 01/07/2018 06/19/2018 Inactive Crestor 10 mg tablet RxNorm: 322734 TAKE 1 TABLET BY MOUTH ON SUNDAY, SUNDAY, AND Sunday11/20/2017 05/18/2018 Inactive Synthroid 50 mcg tablet RxNorm: 104108 TAKE ONE TABLET BY MOUTH DAILY 11/14/2017 05/12/2018 Inactive Diflucan 150 mg tablet RxNorm: 207851 1 Tablet(s) PO daily 09/25/2017 Inactive cefdinir 300 mg capsule RxNorm: 325638 1 Capsule(s) PO BID 09/25/2017 Inactive Cartia XT 240 mg capsule,extended release RxNorm: 965719 TAKE ONE CAPSULE BY MOUTH DAILY 09/12/2017 09/06/2018 Inactive prednisone 20 mg tablet RxNorm: 669470 2 Tablet(s) PO daily 12/201709/04/2017 Inactive Xanax 0.25 mg tablet RxNorm: 012560 1-2 Tablet(s) PO QHS as needed insomnia 08/28/2017 11/24/2017 Inactive Keflex 500 mg capsule RxNorm: 450383 1 Capsule(s) PO TID 201708/27/2017 Inactive Keflex 500 mg capsule RxNorm: 262116 1 Capsule(s) PO TID 201709/03/2017 Inactive Klor-Con 10 mEq tablet,extended release RxNorm: 774770 TAKE ONE TABLET BY MOUTH TWICE A DAY 08/23/2017 08/17/2018 Inactive cefdinir 300 mg capsule RxNorm: 789063 1 Capsule(s) PO BID 08/12/2017 Inactive cefdinir 300 mg capsule RxNorm: 942784 1 Capsule(s) PO BID 08/19/2017 Inactive Kenalog 40 mg/mL suspension for injection RxNorm: 4781294 1 Milliliter(s) Inj 08/09/2017 08/09/2017 Inactive ceftriaxone 500 mg solution for injection RxNorm: 8726420 Inj 08/09/2017 08/09/2017 Inactive Zithromax Z-Hebert 250 mg tablet RxNorm: 810283 1 Tablet(s) PO UD 08/09/2017 08/13/2017 Inactive Singulair 10 mg tablet RxNorm: 609464 TAKE ONE TABLET BY MOUTH EVERY DAY 08/03/2017 09/05/2018 Inactive Xanax 0.25 mg tablet RxNorm: 832094 1-2 Tablet(s) PO QHS as needed insomnia 07/25/2017 05/28/2018 Inactive Benicar 40 mg tablet RxNorm: 636919 TAKE ONE TABLET BY MOUTH DAILY 07/09/2017 04/03/2018 Inactive Lasix 40 mg tablet RxNorm: 470016 TAKE ONE TABLET BY MOUTH DAILY 07/09/2017 01/04/2018 Inactive Synthroid 50 mcg tablet RxNorm: 714435 1 Tablet(s) PO daily TAKE ONE TABLET BY MOUTH DAILY 05/21/2017 11/13/2017 Inactive Must be name brand Lasix 40 mg tablet RxNorm: 613192 TAKE ONE TABLET BY MOUTH DAILY 04/12/2017 07/08/2017 Inactive Zithromax Z-Hebert 250 mg tablet RxNorm: 840539 1 Tablet(s) PO UD 02/05/2017 02/09/2017 Inactive start with finished with cipro Cipro 500 mg tablet RxNorm: 187655 1 Tablet(s) PO BID 201602/07/2017 Inactive prednisone 20 mg tablet RxNorm: 980630 1 Tablet(s) PO BID 01/1501/19/2017 Inactive take 1 in the morning and 1 at noon calcium carbonate 600 mg calcium (1,500 mg) tablet RxNorm: 314574 1 Tablet(s) PO daily 01/04/2017 No Stop Date Active Kenalog 40 mg/mL suspension for injection RxNorm: 8355081 1 Milliliter(s) Inj 01/04/2017 01/04/2017 Inactive Anusol-HC 25 mg rectal suppository RxNorm: 9430229 1 Suppository PRN INSERT 1 RECTALLY DAILY NEEDED 01/04/20172016 Inactive Lasix 40 mg tablet RxNorm: 826475 TAKE ONE TABLET BY MOUTH DAILY 12/20/2016 04/11/2017 Inactive Cartia XT 240 mg capsule,extended release RxNorm: 081146 TAKE ONE CAPSULE BY MOUTH DAILY 12/20/2016 09/11/2017 Inactive Synthroid 50 mcg tablet RxNorm: 301311 1 Tablet(s) PO daily TAKE ONE TABLET BY MOUTH DAILY 11/27/2016 05/20/2017 Inactive Must be name brand meloxicam 15 mg tablet RxNorm: 205525 Tablet(s) TAKE ONE TABLET BY MOUTH ONE TIME A DAY 11/27/2016 06/24/2017 Inactive Crestor 10 mg tablet RxNorm: 066222 TAKE 1 TABLET BY MOUTH ON SUNDAY, SUNDAY, AND Sunday11/13/2016 10/14/2017 Inactive Lexapro 10 mg tablet RxNorm: 487753 1 Tablet(s) PO daily 201601/03/2017 Inactive please make sure that her RX for lexapro is a 10mg dose - delete the 5mg lexapro pill - this is FYI Klor-Con 10 mEq tablet,extended release RxNorm: 503781 TAKE ONE TABLET BY MOUTH TWICE A DAY 08/29/2016 02/24/2017 Inactive Kenalog 40 mg/mL suspension for injection RxNorm: 4392576 Milliliter(s) Inj 08/23/2016 08/23/2016 Inactive cefdinir 300 mg capsule RxNorm: 358404 1 Capsule(s) PO BID 08/28/2016 Inactive take probiotic while on abx Zithromax Z-Hebert 250 mg tablet RxNorm: 139029 1 Tablet(s) PO UD 08/11/2016 09/06/2016 Inactive Z PACK DIRECTED Lexapro 5 mg tablet RxNorm: 794958 TAKE ONE TABLET BY MOUTH EVERY EVENING 07/18/2016 09/06/2016 Inactive Singulair 10 mg tablet RxNorm: 823018 TAKE ONE TABLET BY MOUTH EVERY DAY 07/17/2016 08/02/2017 Inactive Benicar 40 mg tablet RxNorm: 848019 TAKE ONE TABLET BY MOUTH DAILY 07/17/2016 07/08/2017 Inactive Lexapro 10 mg tablet RxNorm: 394610 1 Tablet(s) PO daily 201509/06/2016 Inactive diltiazem ER 180 mg capsule,extended release RxNorm: 804161 TAKE ONE CAPSULE BY MOUTH DAILY 06/15/2016 07/05/2016 Inactive Lexapro 10 mg tablet RxNorm: 094678 1 Tablet(s) PO daily 201506/15/2016 Inactive gabapentin 600 mg tablet RxNorm: 274616 TAKE ONE TABLET BY MOUTH EVERY NIGHT AT BEDTIME NEEDED 04/27/2016 04/11/2017 Inactive Cartia XT 240 mg capsule,extended release RxNorm: 066641 1 Capsule(s) PO daily TAKE ONE CAPSULE BY MOUTH ONCE A DAY 04/17/2016 12/19/2016 Inactive Benicar 40 mg tablet RxNorm: 163810 1 Tablet(s) PO daily 201507/16/2016 Inactive she can do 90 days if she wants to Lexapro 5 mg tablet RxNorm: 428948 1 Tablet(s) PO QPM 201506/07/2016 Inactive Synthroid 50 mcg tablet RxNorm: 260378 1 Tablet(s) PO daily TAKE ONE TABLET BY MOUTH DAILY 01/18/2016 07/15/2016 Inactive Colace 100 mg capsule RxNorm: 2708858 1 Capsule(s) PO daily 04/24/2018 Inactive hydrocodone 5 mg-acetaminophen 325 mg tablet RxNorm: 907284 1/2 Tablet(s) PO QID as needed 01/18/2016 02/16/2016 Inactive Synthroid 50 mcg tablet RxNorm: 306021 Tablet(s) TAKE ONE TABLET BY MOUTH DAILY 12/23/2015 01/17/2016 Inactive Benicar 40 mg tablet RxNorm: 880141 1 Tablet(s) PO daily 201512/12/2015 Inactive Benicar 40 mg tablet RxNorm: 058096 1 Tablet(s) PO daily 201504/10/2016 Inactive meloxicam 15 mg tablet RxNorm: 598949 TAKE ONE TABLET BY MOUTH ONE TIME A DAY 11/12/2015 06/08/2016 Inactive meloxicam 15 mg tablet RxNorm: 867793 Tablet(s) TAKE ONE TABLET BY MOUTH ONE TIME A DAY 11/11/2015 11/11/2015 Inactive Lasix 40 mg tablet RxNorm: 769949 Tablet(s) TAKE ONE TABLET BY MOUTH EVERY DAY 10/19/2015 12/19/2016 Inactive diltiazem ER 180 mg capsule,extended release RxNorm: 880508 1 Capsule(s) daily TAKE ONE CAPSULE BY MOUTH ONCE A DAY 09/27/2015 04/16/2016 Inactive Crestor 10 mg tablet RxNorm: 010231 1 Tablet(s) PO Sun09/17/2015 07/12/2016 Inactive [SAVINGS FOR UNINSURED PATIENTS -- BIN:[id number], PCN: ASPROD1, Group: [id number], ID# [id number], Process claim through [employer], for questions: [phone]. THIS IS NOT INSURANCE.] hydrocodone 5 mg-acetaminophen 325 mg tablet RxNorm: 697127 1-2 Tablet(s) PO Q6 PRN 09/09/2015 10/08/2015 Inactive Micardis 80 mg tablet RxNorm: 455431 1 Tablet(s) PO daily TAKE ONE TABLET BY MOUTH DAILY 08/23/2015 12/12/2015 Inactive Klor-Con 10 mEq tablet,extended release RxNorm: 198191 Tablet(s) TAKE ONE TABLET BY MOUTH TWICE A DAY 08/23/20152015 Inactive Synthroid 50 mcg tablet RxNorm: 671497 TAKE ONE TABLET BY MOUTH DAILY 07/06/2015 12/22/2015 Inactive meloxicam 15 mg tablet RxNorm: 169529 TAKE ONE TABLET BY MOUTH ONE TIME A DAY 06/22/2015 11/10/2015 Inactive Singulair 10 mg tablet RxNorm: 375847 TAKE ONE TABLET BY MOUTH EVERY DAY 05/18/2015 07/16/2016 Inactive Micardis 80 mg tablet RxNorm: 522601 TAKE ONE TABLET BY MOUTH DAILY 02/22/2015 05/04/2015 Inactive gabapentin 600 mg tablet RxNorm: 349415 1 Tablet(s) PO HS as needed 01/15/2015 01/09/2016 Inactive [SAVINGS FOR NON-COVERED DRUGS -- BIN:041601, PCN: ASPROD1, Group : XXXXX, ID# [id number], Questions: . THIS IS NOT INSURANCE.] diltiazem ER 180 mg capsule,extended release RxNorm: 510029 TAKE ONE CAPSULE BY MOUTH ONCE A DAY 01/07/2015 09/26/2015 Inactive meloxicam 15 mg tablet RxNorm: 487522 TAKE ONE TABLET BY MOUTH ONE TIME A DAY 11/09/2014 05/07/2015 Inactive gabapentin 600 mg tablet RxNorm: 739295 1 Tablet(s) PO HS as needed 10/13/2014 01/14/2015 Inactive [SAVINGS FOR UNINSURED PATIENTS -- BIN:[id number], PCN: ASPROD1, Group: [id number], ID# [id number], Process claim through [employer], for questions: [phone]. THIS IS NOT INSURANCE.] omeprazole 20 mg tablet,delayed release RxNorm: 502202 1 Tablet(s) PO daily 10/13/2014 11/11/2014 Inactive Synthroid 50 mcg tablet RxNorm: 597942 TAKE ONE TABLET BY MOUTH EVERY DAY 10/12/2014 01/09/2015 Inactive Synthroid 50 mcg tablet RxNorm: 468427 Tablet(s) TAKE ONE TABLET BY MOUTH EVERY DAY 10/12/2014 10/11/2014 Inactive [SAVINGS FOR UNINSURED PATIENTS -- BIN:195391, PCN: ASPROD1, Group: [id number], ID# [id number], Process claim through [employer], for questions: . THIS IS NOT INSURANCE.] Lasix 40 mg tablet RxNorm: 431510 Tablet(s) PO TAKE ONE TABLET BY MOUTH TWICE A DAY FOR 3 DAYS, THEN RESUME ONE DAILY EXCEPT ON WEDNESDAYS AND FRIDAYS TAKE ONE TWICE DAILY 09/22/2014 05/28/2018 Inactive [SAVINGS FOR UNINSURED PATIENTS -- BIN: 274710, PCN: ASPROD1, Group: [id number], ID# [id number], Process claim through [employer] , for questions: . THIS IS NOT INSURANCE.] Lasix 40 mg tablet RxNorm: 869428 TAKE ONE TABLET BY MOUTH EVERY DAY 09/22/2014 10/18/2015 Inactive Crestor 10 mg tablet RxNorm: 666886 1 Tablet(s) PO Sun08/28/2014 04/24/2015 Inactive [SAVINGS FOR UNINSURED PATIENTS -- BIN:885203, PCN: ASPROD1, Group: [id number], ID# [id number], Process claim through [employer], for questions: . THIS IS NOT INSURANCE.] Crestor 10 mg tablet RxNorm: 381905 1 Tablet(s) PO Sun08/28/2014 08/27/2014 Inactive [SAVINGS FOR UNINSURED PATIENTS -- BIN:045266, PCN: ASPROD1, Group: [id number], ID# [id number], Process claim through [employer], for questions: [phone]. THIS IS NOT INSURANCE.] Micardis 80 mg tablet RxNorm: 667072 TAKE ONE TABLET BY MOUTH EVERY DAY 08/24/2014 12/21/2014 Inactive Zithromax Z-Hebert 250 mg tablet RxNorm: 992565 Tablet(s) PO UD 08/18/2014 Inactive 2 tabs day 1, 1 tabs days 2-5 Anusol-HC 25 mg suppository RxNorm: 1040149 INSERT 1 RECTALLY DAILY NEEDED 07/13/2014 10/10/2014 Inactive Klor-Con 10 mEq tablet,extended release RxNorm: 660434 TAKE ONE TABLET BY MOUTH TWICE A DAY 06/18/2014 12/14/2014 Inactive Lomotil 2.5 mg-0.025 mg tablet RxNorm: 5207304 1 Tablet(s) PO PRN after each loose stool max 8 per day 06/15/201410/12 Inactive one after each loose bm limit 8 per day albuterol sulfate HFA 90 mcg/actuation aerosol inhaler RxNorm: 4483841 1 or2 Puff( s) INH Q4 PRN as needed 05/11/20142013 Inactive albuterol sulfate HFA 90 mcg/actuation aerosol inhaler RxNorm: 9692038 1 or2 Puff( s) INH Q4 PRN as needed 05/11/20142016 Inactive Premarin 0.625 mg/gram vaginal cream RxNorm: 565661 1/2 Gram(s) VAG every other day 05/11/2014 12/06/2014 Inactive Premarin 0.625 mg/gram vaginal cream RxNorm: 007457 1/2 Gram(s) VAG every other day 05/11/2014 05/10/2014 Inactive cefdinir 300 mg capsule RxNorm: 920776 1 Capsule(s) PO BID 06/201405/16/2014 Inactive Rocephin 500 mg solution for injection RxNorm: 869991 1 Milliliter(s) Inj 05/07/2014 05/07/2014 Inactive Singulair 10 mg tablet RxNorm: 711390 TAKE ONE TABLET BY MOUTH EVERY DAY 04/30/2014 10/12/2014 Inactive meloxicam 15 mg tablet RxNorm: 729520 1 Tablet(s) PO daily 11/08/2014 Inactive Crestor 10 mg tablet RxNorm: 875944 1 Tablet(s) PO Sun TAKE ONE TABLET BY MOUTH EVERY DAY 04/16/2014 08/27/2014 Inactive Synthroid 50 mcg tablet RxNorm: 123245 TAKE ONE TABLET BY MOUTH EVERY DAY 04/02/2014 09/28/2014 Inactive diltiazem ER 180 mg capsule,extended release RxNorm: 960161 1 Capsule(s) PO daily 01/05/2014 12/30/2014 Inactive Pennsaid 1.5 % topical drops RxNorm: 873573 Drop(s) TOP APPLY 15 - 20 DROPS TOPICALLY FOUR TIMES A DAY 12/29/2013 Inactive Rocephin 500 mg solution for injection RxNorm: 767064 Inj 12/2612/26/2013 Inactive Kenalog 40 mg/mL suspension for injection RxNorm: 3604143 Milliliter(s) Inj 12/26/2013 12/26/2013 Inactive Micardis 80 mg tablet RxNorm: 611686 Tablet(s) PO TAKE ONE TABLET BY MOUTH EVERY DAY 12/15/2013 08/23/2014 Inactive nystatin 100,000 unit/mL oral suspension RxNorm: 233103 4 Unit(s) PO QID swish and swallow 11/12/2013 12/09/2013 Inactive Kenalog 40 mg/mL suspension for injection RxNorm: 8684961 Milliliter(s) Inj 11/12/2013 11/12/2013 Inactive Lasix 40 mg tablet RxNorm: 980614 Tablet(s) PO TAKE ONE TABLET BY MOUTH TWICE A DAY FOR 3 DAYS, THEN RESUME ONE DAILY EXCEPT ON WEDNESDAYS AND FRIDAYS TAKE ONE TWICE DAILY 10/30/2013 09/21/2014 Inactive Lasix 40 mg tablet RxNorm: 222552 1 Tablet(s) PO daily 201310/29/2013 Inactive Rocephin 500 mg solution for injection RxNorm: 078770 1 Milliliter(s) Inj 10/09/2013 10/09/2013 Inactive metoprolol succinate ER 25 mg tablet,extended release 24 hr RxNorm: 988823 Tablet (s) PO TAKE ONE TABLET BY MOUTH EVERY DAY 10/02/2013 01/06/2014 Inactive metoprolol succinate ER 25 mg tablet,extended release 24 hr RxNorm: 710321 Tablet (s) PO TAKE ONE TABLET BY MOUTH EVERY DAY 08/04/2013 10/01/2013 Inactive Synthroid 50 mcg tablet RxNorm: 397640 Tablet(s) PO TAKE ONE TABLET BY MOUTH EVERY DAY 07/14/2013 04/01/2014 Inactive gabapentin 600 mg tablet RxNorm: 102052 1 Tablet(s) PO Q8 PRN 06/11/2013 06/11/2013 Inactive gabapentin 600 mg tablet RxNorm: 764490 1 Tablet(s) PO Q8 PRN 06/11/2013 03/07/2014 Inactive Neurontin 600 mg tablet RxNorm: 254715 1 Tablet(s) PO Q8 PRN 06/11/2013 Inactive Anusol-HC 25 mg suppository RxNorm: 9837152 Suppository RTL INSERT 1 RECTALLY DAILY NEEDED 04/24/2013 07/12/2014 Inactive metoprolol succinate ER 25 mg tablet,extended release 24 hr RxNorm: 186615 1 Tablet(s) PO daily 04/21/2013 08/03/2013 Inactive Premarin 0.625 mg/gram Vaginal Cream RxNorm: 296004 1/2 Gram(s) VAG every other day 04/03/2013 10/29/2013 Inactive Klor-Con 10 mEq tablet,extended release RxNorm: 783949 1 Tablet(s) PO daily 03/26/2013 03/20/2014 Inactive Klor-Con 10 mEq tablet,extended release RxNorm: 297043 1 Tablet(s) PO BID 03/24/2013 03/23/2013 Inactive Klor-Con 10 mEq tablet,extended release RxNorm: 273650 1 Tablet(s) PO BID 03/24/2013 03/25/2013 Inactive Klor-Con 10 mEq tablet,extended release RxNorm: 290972 1 Tablet(s) PO BID 03/24/2013 03/23/2013 Inactive Augmentin 875 mg-125 mg tablet RxNorm: 268410 1 Tablet(s) PO BID 03/12/2013 03/18/2013 Inactive Augmentin 875 mg-125 mg tablet RxNorm: 410438 1 Tablet(s) PO BID 03/12/2013 03/11/2013 Inactive ciprofloxacin 500 mg tablet RxNorm: 616332 1 Tablet(s) PO BID 03/11/2013 03/17/2013 Inactive ciprofloxacin 500 mg tablet RxNorm: 585208 1 Tablet(s) PO BID 03/11/2013 03/10/2013 Inactive Crestor 10 mg tablet RxNorm: 041736 1 Tablet(s) PO daily 201202/09/2013 Inactive Crestor 10 mg tablet RxNorm: 807822 Tablet(s) PO TAKE ONE TABLET BY MOUTH EVERY DAY 02/10/2013 04/15/2014 Inactive Singulair 10 mg tablet RxNorm: 101506 Tablet(s) PO TAKE ONE TABLET BY MOUTH EVERY DAY 02/04/2013 04/29/2014 Inactive Kenalog 40 mg/mL Susp for Injection RxNorm: 2760330 1 Milliliter(s) Inj 11/21/2012 11/21/2012 Inactive Pennsaid 1.5 % topical drops RxNorm: 645638 15-20 Drop(s) TOP QID 10/28/2012 11/21/2013 Inactive Micardis 80 mg tablet RxNorm: 977754 1 Tablet(s) PO daily 201210/22/2013 Inactive put this on file please, quantitiy increase Pennsaid 1.5 % Topical Drops RxNorm: 470492 15-20 Drop(s) TOP QID 10/28/2012 10/27/2012 Inactive diltiazem ER 180 mg capsule,extended release RxNorm: 795742 1 Capsule(s) PO daily 10/14/2012 10/08/2013 Inactive Pyridium 200 mg tablet RxNorm: 3289985 1 Tablet(s) PO Q8 PRN 10/12/2014 Inactive Flagyl 500 mg tablet RxNorm: 858000 1 Tablet(s) PO TID 201209/10/2012 Inactive Macrobid 100 mg capsule RxNorm: 1734318 1 Capsule(s) PO BID 03/201309/02/2012 Inactive Macrobid 100 mg capsule RxNorm: 3963491 1 Capsule(s) PO BID 03/201309/09/2012 Inactive sulfamethoxazole-trimethoprim 800 mg-160 mg tablet RxNorm: 726065 1 Tablet(s) PO BID 08/05/2012 08/14/2012 Inactive Lasix 40 mg tablet RxNorm: 007554 1 Tablet(s) PO BID pt is taking extra lasix x 3 days, then every sunday and sunday take two lasix pills. 07/15/2012 07/09/2013 Inactive Synthroid 50 mcg tablet RxNorm: 431696 1 Tablet(s) PO daily 07/09/2013 Inactive do not substitute the generic levothyroxine for the synthroid brand name.....she needs brand name synthroid. Klor-Con 10 mEq tablet,extended release RxNorm: 994971 1 Tablet(s) PO BID 07/15/2012 03/23/2013 Inactive Singulair 10 mg tablet RxNorm: 460580 1 Tablet(s) PO daily 02/03/2013 Inactive Lexapro 10 mg tablet RxNorm: 977719 1/2 Tablet(s) PO daily 06/03/2013 Inactive ProAir HFA 90 mcg/actuation Aerosol Inhaler RxNorm: 981989 2 INH Q6 PRN 04/23/2012 01/17/2016 Inactive Lexapro 10 mg tablet RxNorm: 055406 1/2 Tablet(s) PO daily 05/09/2012 Inactive metoprolol succinate ER 50 mg tablet,extended release 24 hr RxNorm: 291806 1 Tablet(s) PO daily 04/09/2012 04/09/2012 Inactive Klor-Con 10 10 mEq tablet,extended release RxNorm: 535592 1 Tablet(s) PO daily 04/01/2012 07/14/2012 Inactive metoprolol succinate ER 50 mg tablet,extended release 24 hr RxNorm: 649785 1/2 Tablet(s) PO BID 03/11/2012 04/08/2012 Inactive clonidine 0.1 mg Tab RxNorm: 866833 1 Tablet(s) PO BID 201103/12/2012 Inactive clonidine 0.1 mg Tab RxNorm: 738564 1 Tablet(s) PO BID 201102/18/2012 Inactive Micardis 80 mg Tab RxNorm: 235785 1 Tablet(s) PO daily 201102/13/2012 Inactive Micardis 80 mg tablet RxNorm: 843263 1 Tablet(s) PO daily 201110/27/2012 Inactive Synthroid 50 mcg tablet RxNorm: 533858 1 Tablet(s) PO daily 07/14/2012 Inactive Tekturna 300 mg Tab RxNorm: 5702346 1 Tablet(s) PO daily 02/1103/12/2012 Inactive Lasix 40 mg Tab RxNorm : 194345 1 Tablet(s) PO daily 12/18/2011 12/17/2011 Inactive Lasix 40 mg tablet RxNorm: 128240 1 Tablet(s) PO daily 201107/14/2012 Inactive Anusol-HC 25 mg Suppository RxNorm: 1520667 1 Suppository RTL QDAY PRN 12/04/2011 04/19/2012 Inactive lactobacillus acidophilus Cap RxNorm: 1 Capsule(s) PO BID 11/20/2011 Inactive lactobacillus acidophilus Cap RxNorm: 1 Capsule(s) PO BID 11/20/2011 Inactive Cipro 500 mg Tab RxNorm: 640831 1 Tablet(s) PO BID 201103/12/2012 Inactive lactobacillus acidophilus Cap RxNorm: 1 Capsule(s) PO BID 11/27/2011 Inactive lactobacillus acidophilus Cap RxNorm: 1 Capsule(s) PO BID 11/20/2011 Inactive Cipro 500 mg Tab RxNorm: 469105 1 Tablet(s) PO BID 201111/20/2011 Inactive Lexapro 10 mg Tab RxNorm: 015538 1 Tablet(s) PO daily 201111/12/2011 Inactive Lexapro 10 mg tablet RxNorm: 859829 1 Tablet(s) PO daily 201104/18/2012 Inactive amlodipine 10 mg Tab RxNorm: 812141 1 Tablet(s) PO daily 201112/03/2011 Inactive amlodipine 5 mg Tab RxNorm: 856629 1 Tablet(s) PO daily 201112/04/2011 Inactive Rocephin 500 mg Solution for Injection RxNorm: 730669 Inj 08/3009/20/2011 Inactive metoprolol succinate ER 25 mg 24 hr Tab RxNorm: 062021 1 Tablet(s) PO QHS 08/30/2011 09/20/2011 Inactive Ambien 10 mg Tab RxNorm: 038640 1 Tablet(s) PO HS PRN 08/3004/19/2012 Inactive Augmentin 875 mg-125 mg Tab RxNorm: 698326 1 Tablet(s) PO BID 08/25/2011 09/20/2011 Inactive Augmentin 875 mg-125 mg Tab RxNorm: 190299 1 Tablet(s) PO BID 08/25/2011 08/24/2011 Inactive Rocephin 500 mg Solution for Injection RxNorm: 961599 Inj 08/2308/23/2011 Inactive Levaquin 500 mg Tab RxNorm: 513022 1 Tablet(s) PO daily 201008/30/2011 Inactive chlordiazepoxide-clidinium 5 mg-2.5 mg Cap RxNorm: 902236 1 Capsule(s) PO BID 07/10/2011 04/19/2012 Inactive q 12 hours prn metoprolol succinate ER 100 mg 24 hr Tab RxNorm: 411731 1 Tablet(s) PO daily 05/29/2011 03/12/2012 Inactive Synthroid 50 mcg Tab RxNorm: 768969 1 Tablet(s) PO daily 201008/12/2011 Inactive Ambien CR 12.5 mg Tab RxNorm: 576909 1 Tablet(s) PO HS PRN 05/0908/30/2011 Inactive Ambien 10 mg Tab RxNorm: 341739 1 Tablet(s) PO QHS 201006/07/2011 Inactive Nexium 40 mg Cap RxNorm: 408082 1 Capsule(s) PO daily 05/0403/12/2012 Inactive the patient had tried pepcid, otc priolosec, RX omperazole, failed them all Bactrim DS 800 mg-160 mg Tab RxNorm: 920693 1 Tablet(s) PO BID 04/19/2011 08/30/2011 Inactive triamcinolone acetonide 40 mg/mL Susp for Injection RxNorm: 6905981 1 Milliliter(s ) Inj UD 04/19/2011 04/19/2011 Inactive aspirin 81 mg Tab, Delayed Release RxNorm: 668678 1 Tablet(s) PO daily No Start Date Active 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 Device RxNorm: Miscellaneous QHS sleep apnea, 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 No Start Date Active Cymbalta 30 mg Cap RxNorm: 071011 1 Capsule(s) PO daily No Start Date 03/12/2012 Inactive Nexium 40 mg Cap RxNorm: 266225 Capsule(s) PO No Start Date 05/03/2011 Inactive Benadryl 25 mg capsule RxNorm: 2004400 1 Capsule(s) PO QHS No Start Date 01/03/2017 Inactive Klor-Con 10 10 mEq tablet,extended release RxNorm: 110654 1 Tablet(s) PO daily No Start Date 03/31/2012 Inactive Metamucil Oral RxNorm : Oral No Start Date 10/12/2014 Inactive amlodipine 10 mg Tab RxNorm: 174266 1 Tablet(s) PO daily No Start Date 10/08/2011 Inactive Norvasc 5 mg tablet RxNorm: 410528 1 Tablet(s) PO daily No Start Date 10/12/2014 Inactive Lasix 40 mg Tab RxNorm : 579155 1 Tablet(s) PO daily No Start Date 12/17/2011 Inactive diltiazem ER (XR/XT) 240 mg capsule,extended release, controlled RxNorm: 400555 1 Capsule(s) PO daily No Start Date Inactive Centrum Silver Ultra Women's oral RxNorm: 24965 oral No Start Date 04/24/2018 Inactive Synthroid 50 mcg Tab RxNorm: 710709 1 Tablet(s) PO daily No Start Date 05/14/2011 Inactive Flagyl 500 mg tablet RxNorm: 426128 1 Tablet(s) PO No Start Date 09/03/2012 Inactive one after each loose bm limit 8 per day Boniva 150 mg Tab RxNorm: 289073 1 Tablet(s) PO UD No Start Date 08/30/2011 Inactive monthly Singulair 10 mg tablet RxNorm: 367090 1 Tablet(s) PO daily No Start Date 06/11/2012 Inactive folic acid Oral RxNorm : Oral No Start Date 03/12/2012 Inactive potassium chloride ER 10 mEq tablet,extended release RxNorm: 695520 1 Tablet(s) PO daily No Start Date 01/03/2017 Inactive Probiotic & Acidophilus oral RxNorm: oral No Start Date 04/24/2018 Inactive Librium 10 mg Cap RxNorm: 290146 Capsule(s) PO UD No Start Date 03/12/2012 Inactive q 12 hours prn Crestor 10 mg tablet RxNorm: 527931 1 Tablet(s) PO daily No Start Date 02/09/2013 Inactive multivitamin Cap RxNorm: 1 Capsule(s) PO daily No Start Date 01/17/2016 Inactive metoprolol succinate ER 100 mg 24 hr Tab RxNorm: 869275 1 Tablet(s) PO daily No Start Date 05/28/2011 Inactive Zithromax Z-Hebert 250 mg tablet RxNorm: 993039 Tablet(s) PO UD No Start Date 12/22/2015 Inactive diltiazem ER 180 mg capsule,extended release RxNorm: 451779 1 Capsule(s) PO daily No Start Date 10/13/2012 Inactive ProctoCream-HC 2.5 % rectal cream with applicator RxNorm: 348799 APPLY TO AFFECTED AREAS DIRECTED RTL No Start Date 09/30/2018 Inactive Tekturna 300 mg Tab RxNorm: 1924348 1 Tablet(s) PO daily samples No Start Date 02/11/2012 Inactive Xanax 0.25 mg tablet RxNorm: 728484 1-2 Tablet(s) PO QHS as needed insomnia No Start Date 07/24/2017 Inactive Fish Oil 1,000 mg Cap RxNorm: 1 Capsule(s) PO daily No Start Date 04/24/2018 Inactive ProAir HFA 90 mcg/actuation Aerosol Inhaler RxNorm: 734777 2 INH Q6 PRN No Start Date 04/22/2012 Inactive chlordiazepoxide-clidinium 5 mg-2.5 mg Cap RxNorm: 224584 1 Capsule(s) PO PRN No Start Date 07/09/2011 Inactive q 12 hours prn Butrans 5 mcg/hour Transderm Patch RxNorm: 647455 1 Patch TD weekly No Start Date 05/26/2012 Inactive Lactobacillus acidophilus tablet RxNorm: 4 Tablet(s) PO daily No Start Date 01/03/2017 Inactive Librax (with clidinium) 5 mg-2.5 mg capsule RxNorm: 706676 1 Capsule(s) PO BID No Start Date 04/18/2012 Inactive Nexium 40 mg capsule,delayed release RxNorm: 088580 Capsule(s) PO PRN No Start Date 10/12/2014 Inactive Tylenol Extra Strength 500 mg tablet RxNorm: 970752 1 Tablet(s) PO BID as needed for pain No Start Date 04/24/2018 Inactive Premarin 0.625 mg/gram Vaginal Cream RxNorm: 341984 Gram(s) VAG No Start Date 03/12/2012 Inactive three times a week, small amt to vaginal tissuesample given metoprolol succinate ER 50 mg tablet,extended release 24 hr RxNorm: 707414 1 Tablet(s) PO daily No Start Date 2011 Inactive Zithromax Z-Hebert 250 mg tablet RxNorm: 548745 Tablet(s) PO UD No Start Date 08/13/2014 Inactive albuterol sulfate HFA 90 mcg/actuation aerosol inhaler RxNorm: 6858325 1 or2 Puff( s) INH Q4 PRN No Start Date 05/10/2014 Inactive Xanax 0.25 mg Tab RxNorm: 007395 1/2-1 Tablet(s) PO Q8 PRN No Start Date 03/12/2012 Inactive metoprolol succinate ER 25 mg tablet,extended release 24 hr RxNorm: 942339 1 Tablet(s) PO daily No Start Date 2012 Inactive Zithromax Z-Hebert 250 mg tablet RxNorm: 987821 1 Tablet(s) PO UD No Start Date 08/10/2016 Inactive Z PACK DIRECTED calcium carbonate 600 mg (1,500 mg) Tab RxNorm: 746331 1 Tablet(s) PO BID No Start Date 01/03/2017 Inactive albuterol sulfate HFA 90 mcg/Actuation Aerosol Inhaler RxNorm: 562370 1-2 Puff(s) INH Q4 PRN No Start Date 03/11/2012 Inactive Vitamin D3 2,000 unit capsule RxNorm: 711311 1 Capsule(s) PO daily No Start Date 10/12/2014 Inactive Colace 100 mg Cap RxNorm: 0965393 1 Capsule(s) PO BID No Start Date 01/17/2016 Inactive Neurontin 600 mg tablet RxNorm: 666398 1 Tablet(s) PO Q8 PRN No Start Date 06/09/2013 Inactive Lomotil 2.5 mg-0.025 mg tablet RxNorm: 7320866 1 Tablet(s) PO No Start Date 06/14/2014 Inactive one after each loose bm limit 8 per day Micardis 80 mg Tab RxNorm: 495889 1 Tablet(s) PO daily No Start Date 12/03/2011 Inactive Pyridium 200 mg tablet RxNorm: 9683718 1 Tablet(s) PO Q8 PRN No Start Date 09/10/2012 Inactive Medication Administered Medication Codes Instructions Start Date Status ceftriaxone 500 mg solution for injection RxNorm: 2017774 08/09/2017 No longer Active Kenalog 40 mg/mL suspension for injection RxNorm: 5141652 1Milliliter 08/09/2017 No longer Active Kenalog 40 mg/mL suspension for injection RxNorm: 5898588 1Milliliter 01/04/2017 No longer Active Kenalog 40 mg/mL suspension for injection RxNorm: 9331259 Milliliter 08/23/2016 No longer Active Rocephin 500 mg solution for injection RxNorm: 034767 1Milliliter 05/07/2014 No longer Active Kenalog 40 mg/mL suspension for injection RxNorm: 0149485 Milliliter 12/26/2013 No longer Active Rocephin 500 mg solution for injection RxNorm: 513809 12/26/2013 No longer Active Kenalog 40 mg/mL suspension for injection RxNorm: 3098822 Milliliter 11/12/2013 No longer Active Rocephin 500 mg solution for injection RxNorm: 124611 1Milliliter 10/09/2013 No longer Active Kenalog 40 mg/mL Susp for Injection RxNorm: 9022308 1Milliliter 11/21/2012 No longer Active Rocephin 500 mg Solution for Injection RxNorm: 080010 08/23/2011 No longer Active triamcinolone acetonide 40 mg/mL Susp for Injection RxNorm: 8541249 1MilliliterUD 04/19/2011 No longer Active Immunizations Vaccine Codes Date Status SHINGARIX CVX: 121 07/02/2018 completed Influenza CVX: 141 05/22/2018 completed Influenza CVX: 141 06/16/2016 completed Pneumococcal CVX: 133 06/16/2016 completed PPD Unknown 08/07/2014 completed Influenza CVX: 141 05/20/2014 completed Influenza CVX: 141 06/11/2013 completed zostavax CVX: 121 05/08/2013 completed Influenza CVX: 141 05/03/2012 completed Influenza Unknown 06/10/2010 completed Assessments Condition Codes Effective Dates Essential (primary) hypertension ICD-10: I10 ICD-9: 401.1 [...] contusion of toenail ICD-9: 924.3 05/27/2012 BENIGN ERILNDA SKIN ARM ICD-9: 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.6 2011 BENIGN ERLINDA [...] Item Item Code Result Date Comp Metabolic Ssp023 NA 139 mEq/L 05/29/2018 Comp Metabolic Wuw120 K 4.1 mEq/L 05/29/2018 Comp Metabolic Efw581 CL 99 mEq/L 05/29/2018 Comp Metabolic Tsz932 CO2 30.0 mEq/L 05/29/2018 Comp Metabolic Yzf976 ANION GAP 14 05/29/2018 Comp Metabolic Ksx920 GLUCOSE 107 mg/dL 05/29/2018 Comp Metabolic Ksi014 Creat 0.6 mg/dL 05/29/2018 Comp Metabolic Htm630 eGFR 95 ml/min/1.73m2 05/29/2018 Comp Metabolic Gtm623 BUN 15 mg/dL 05/29/2018 Comp Metabolic Oiz662 B/C Ratio 23.4 Ratio 05/29/2018 Comp Metabolic Etd792 CALCIUM 9.4 mg/dL 05/29/2018 Comp Metabolic Nti643 ALK PHOS 52 U/L 05/29/2018 Comp Metabolic Zey365 AST(SGOT) 16 U/L 05/29/2018 Comp Metabolic Qjt757 ALT(SGPT) 12 U/L 05/29/2018 Comp Metabolic Nhf452 BILI T 1.1 mg/dL 05/29/2018 Comp Metabolic Cyk546 ALBUMIN 4.0 g/dL 05/29/2018 Comp Metabolic Lnl886 TPRO 6.5 g/dL 05/29/2018 Comp Metabolic Mjl368 GLOB 2.5 g/dL 05/29/2018 Comp Metabolic Zuu830 A/G Ratio 1.6 Ratio 05/29/2018 Comp Metabolic Ehj687 Osmo 279 mOsmo 05/29/2018 Cbc With Differential Ord2 WBC 8.22 K/ul 05/29/2018 Cbc With Differential Ord2 RBC 4.40 M/ul 05/29/2018 Cbc With Differential Ord2 HGB 12.7 g/dl 05/29/2018 Cbc With Differential Ord2 Neut% 63.0 % 05/29/2018 Cbc With Differential Ord2 HCT 40.7 % 05/29/2018 Cbc With Differential Ord2 MCV 92.5 fl 05/29/2018 Cbc With Differential Ord2 Lymph% 24.9 % 05/29/2018 Cbc With Differential Ord2 Bonner% 9.0 % 05/29/2018 Cbc With Differential Ord2 MCH 28.9 pg 05/29/2018 Cbc With Differential Ord2 MCHC 31.2 pg 05/29/2018 Cbc With Differential Ord2 Eos% 2.6 % 05/29/2018 Cbc With Differential Ord2 Baso% 0.5 % 05/29/2018 Cbc With Differential Ord2 PLT 329 K/ul 05/29/2018 Cbc With Differential Ord2 RDW 14.9 % 05/29/2018 Cbc With Differential Ord2 Neut ABS# 5.18 K/ul 05/29/2018 Cbc With Differential Ord2 Lymph ABS# 2.05 K/ul 05/29/2018 Cbc With Differential Ord2 Bonner ABS# 0.7 K/ul 05/29/2018 Cbc With Differential Ord2 Eos ABS# 0.2 K/ul 05/29/2018 Cbc With Differential Ord2 Baso ABS# 0.0 K/ul 05/29/2018 Lipid Ord30 CHOL 191 mg/dL 05/29/2018 Lipid Ord30 HDL 68.0 mg/dl 05/29/2018 Lipid Ord30 TRIG 138 mg/dL 05/29/2018 Lipid Ord30 LDL 95 mg/dL 05/29/2018 Lipid Ord30 C/HDL 2.8 Ratio 05/29/2018 Free T4 Pme001 FREE T4 0.93 ng/dL 05/29/2018 Tsh Ord6 TSH (3rd IS) 2.05 uIU/mL 05/29/2018 Lipid Ord30 CHOL 213 mg/dL 09/12/2017 Lipid Ord30 HDL 68.0 mg/dl 09/12/2017 Lipid Ord30 TRIG 202 mg/dL 09/12/2017 Lipid Ord30 LDL 105 mg/dL 09/12/2017 Lipid Ord30 C/HDL 3.1 Ratio 09/12/2017 Tsh Ord6 hTSH II 1.98 uIU/mL 09/12/2017 Comp Metabolic Arq102 NA 140 mEq/L 09/12/2017 Comp Metabolic Hge610 K 4.3 mEq/L 09/12/2017 Comp Metabolic Uve043 CL 99 mEq/L 09/12/2017 Comp Metabolic Lgv161 CO2 33.0 mEq/L 09/12/2017 Comp Metabolic Jwt032 ANION GAP 12 09/12/2017 Comp Metabolic Bcy301 GLUCOSE 92 mg/dL 09/12/2017 Comp Metabolic Gbc101 Creat 0.7 mg/dL 09/12/2017 Comp Metabolic Lzl557 eGFR 84 ml/min/1.73m2 09/12/2017 Comp Metabolic Moi155 BUN 18 mg/dL 09/12/2017 Comp Metabolic Ldp234 B/C Ratio 25.4 Ratio 09/12/2017 Comp Metabolic Wby872 CALCIUM 9.3 mg/dL 09/12/2017 Comp Metabolic Uwc814 ALK PHOS 64 U/L 09/12/2017 Comp Metabolic Hdv028 AST(SGOT) 13 U/L 09/12/2017 Comp Metabolic Jfp323 ALT(SGPT) 12 U/L 09/12/2017 Comp Metabolic Sfa392 BILI T 0.7 mg/dL 09/12/2017 Comp Metabolic Qph955 ALBUMIN 4.0 g/dL 09/12/2017 Comp Metabolic Huz006 TPRO 6.3 g/dL 09/12/2017 Comp Metabolic Pel013 GLOB 2.3 g/dL 09/12/2017 Comp Metabolic Tbr760 A/G Ratio 1.8 Ratio 09/12/2017 Comp Metabolic Jio660 Osmo 281 mOsmo 09/12/2017 Cbc With Differential Ord2 WBC 13.35 [...] 29.3 pg 09/12/2017 Cbc With Differential Ord2 Bonner% 8.7 % 09/12/2017 Cbc With Differential Ord2 MCHC 30.2 pg 09/12/2017 Cbc With Differential Ord2 Eos% 2.2 % 09/12/2017 Cbc With Differential Ord2 Baso% 0.5 % 09/12/2017 Cbc With Differential Ord2 PLT 381 K/ul 09/12/2017 Cbc With Differential Ord2 RDW 14.9 % 09/12/2017 Cbc With Differential Ord2 Neut ABS# 9.11 K/ul 09/12/2017 Cbc With Differential Ord2 Lymph ABS# 2.72 K/ul 09/12/2017 Cbc With Differential Ord2 Bonner ABS# 1.2 K/ul 09/12/2017 Cbc With Differential Ord2 Eos ABS# 0.3 K/ul 09/12/2017 Cbc With Differential Ord2 Baso ABS# 0.1 K/ul 09/12/2017 Free T4 Dnm677 FREE T4 0.90 ng/dL 09/12/2017 Tsh Ord6 hTSH II 1.56 uIU/mL 03/09/2016 Cbc With Differential Ord2 WBC 9.05 K/ul 03/09/2016 Cbc With Differential Ord2 RBC 4.03 M/ul 03/09/2016 Cbc With Differential Ord2 HGB 11.6 g/dl 03/09/2016 Cbc With Differential Ord2 Neut% 62.8 % 03/09/2016 Cbc With Differential Ord2 HCT 37.0 % 03/09/2016 Cbc With Differential Ord2 Lymph% 26.3 % 03/09/2016 Cbc With Differential Ord2 MCV 91.8 fl 03/09/2016 Cbc With Differential Ord2 MCH 28.8 pg 03/09/2016 Cbc With Differential Ord2 Bonner% 8.5 % 03/09/2016 Cbc With Differential Ord2 [...] 2.38 K/ul 03/09/2016 Cbc With Differential Ord2 Bonner ABS# 0.8 K/ul 03/09/2016 Cbc With Differential Ord2 Eos ABS# 0.2 K/ul 03/09/2016 Cbc With Differential Ord2 Baso ABS# 0.1 K/ul 03/09/2016 Comp Metabolic Zhp700 NA 138 mEq/L 03/09/2016 Comp Metabolic Jil528 K 4.5 mEq/L 03/09/2016 Comp Metabolic Plu044 CL 100 mEq/L 03/09/2016 Comp Metabolic Ivf301 CO2 33.0 mEq/L 03/09/2016 Comp Metabolic Jqa515 ANION GAP 10 03/09/2016 Comp Metabolic Pbr168 GLUCOSE 94 mg/dL 03/09/2016 Comp Metabolic Tlk774 Creat 0.6 mg/dL 03/09/2016 Comp Metabolic Qlx945 eGFR 106 ml/min/1.73m2 03/09/2016 Comp Metabolic Siw809 BUN 10 mg/dL 03/09/2016 Comp Metabolic Xzr221 B/C Ratio 17.2 Ratio 03/09/2016 Comp Metabolic Hrg145 CALCIUM 9.2 mg/dL 03/09/2016 Comp Metabolic Qvp781 ALK PHOS 64 U/L 03/09/2016 Comp Metabolic Lnq942 AST(SGOT) 20 U/L 03/09/2016 Comp Metabolic Grf776 ALT(SGPT) 11 U/L 03/09/2016 Comp Metabolic Hyw915 BILI T 0.9 mg/dL 03/09/2016 Comp Metabolic Zrk679 ALBUMIN 4.0 g/dL 03/09/2016 Comp Metabolic Knf860 TPRO 6.1 g/dL 03/09/2016 Comp Metabolic Npa495 GLOB 2.1 g/dL 03/09/2016 Comp Metabolic Fyb969 A/G Ratio 1.9 Ratio 03/09/2016 Comp Metabolic Xng539 Osmo 274 mOsmo 03/09/2016 Free T4 Yic129 FREE T4 0.90 ng/dL 03/09/2016 Lipid Ord30 CHOL 192 mg/dL 03/09/2016 Lipid Ord30 HDL 60.0 mg/dl 03/09/2016 Lipid Ord30 TRIG 156 mg/dL 03/09/2016 Lipid Ord30 LDL 101 mg/dL 03/09/2016 Lipid Ord30 C/HDL 3.2 Ratio 03/09/2016 Free T4 Dmc591 FREE T4 0.79 ng/dL 09/07/2015 Comp Metabolic Lhr650 NA 137 mEq/L 09/07/2015 Comp Metabolic Eio408 K 4.0 mEq/L 09/07/2015 Comp Metabolic Pdn382 CL 98 mEq/L 09/07/2015 Comp Metabolic Xno021 CO2 30.0 mEq/L 09/07/2015 Comp Metabolic Scv844 ANION GAP 13 09/07/2015 Comp Metabolic Cqf875 GLUCOSE 101 mg/dL 09/07/2015 Comp Metabolic Vnn885 Creat 0.6 mg/dL 09/07/2015 Comp Metabolic Tux271 eGFR 111 ml/min/1.73m2 09/07/2015 Comp Metabolic Hmp095 BUN 16 mg/dL 09/07/2015 Comp Metabolic Dxp630 B/C Ratio 28.6 Ratio 09/07/2015 Comp Metabolic Xnj417 CALCIUM 9.4 mg/dL 09/07/2015 Comp Metabolic Yxr166 ALK PHOS 68 U/L 09/07/2015 Comp Metabolic Ehk888 AST(SGOT) 16 U/L 09/07/2015 Comp Metabolic Lxe121 ALT(SGPT) 12 U/L 09/07/2015 Comp Metabolic Swb289 BILI T 0.9 mg/dL 09/07/2015 Comp Metabolic Sod483 ALBUMIN 4.1 g/dL 09/07/2015 Comp Metabolic Fer347 TPRO 6.5 g/dL 09/07/2015 Comp Metabolic Mut069 GLOB 2.4 g/dL 09/07/2015 Comp Metabolic Avq267 A/G Ratio 1.7 Ratio 09/07/2015 Comp Metabolic Phd852 Osmo 275 mOsmo 09/07/2015 Lipid Ord30 CHOL 209 mg/dL 09/07/2015 Lipid Ord30 HDL 61.0 mg/dl 09/07/2015 Lipid Ord30 TRIG 157 mg/dL 09/07/2015 Lipid Ord30 LDL 117 mg/dL 09/07/2015 Lipid Ord30 C/HDL 3.4 Ratio 09/07/2015 Tsh Ord6 hTSH II 3.25 uIU/mL 09/07/2015 Cbc With Differential Ord2 WBC 6.9 [...] With Differential Ord2 RDW 14.4 % 09/07/2015 FREE T4 2817959 FREE T4 1.44 NG/DL 08/28/2014 CBC 6105134 WBC 12.5 10e9/L 08/28/2014 CBC 8339751 RBC 3.44 10e12/L 08/28/2014 CBC 5591599 HGB 10.3 g/dL 08/28/2014 CBC 5680103 HCT DET 33.9 % 08/28/2014 CBC 9613279 MCV 98.5 fL 08/28/2014 CBC 1606284 MCH 29.9 pg 08/28/2014 CBC 4666453 MCHC 30.4 g/dL 08/28/2014 CBC 9075874 PLT 412 10e9/L 08/28/2014 CBC 7327853 MPV 10.2 fL 08/28/2014 CBC 4014013 NNEKA % 68.5 % 08/28/2014 CBC 9865515 LY % 20.8 % 08/28/2014 CBC 6957295 MON % 9.9 % 08/28/2014 CBC 3865840 EOS % 0.6 % 08/28/2014 CBC 2778403 BASO % 0.2 % 08/28/2014 CBC 0703863 RDW 15.8 % 08/28/2014 CBC 2629971 ABS NNEKA 8.56 10e9/L 08/28/2014 CBC 6362837 ABS LYMPH 2.60 10e9/L 08/28/2014 CBC 9621613 ABS MONO 1.24 10e9/L 08/28/2014 CBC 7249917 ABS EOS 0.08 10e9/L 08/28/2014 CBC 2592972 ABS BASO 0.03 10e9/L 08/28/2014 CBC 4248130 RDW-SD 55.4 fL 08/28/2014 CHEM 14 6748360 AST 14 U/L 08/28/2014 CHEM 14 2703763 ALT 13 IU/L 08/28/2014 CHEM 14 4314243 BUN 15 MG/DL 08/28/2014 CHEM 14 6732753 ALBUMIN 4.2 GM/DL 08/28/2014 CHEM 14 7465097 CHLORIDE 98 MMOL/L 08/28/2014 CHEM 14 4598562 BILI TOT 1.2 MG/DL 08/28/2014 CHEM 14 4538353 ALK PHOS 68 U/L 08/28/2014 CHEM 14 0048066 SODIUM 137 MMOL/L 08/28/2014 CHEM 14 1840668 CREATININE 0.68 MG/DL 08/28/2014 CHEM 14 8228945 CALCIUM 9.1 MG/DL 08/28/2014 CHEM 14 3601751 POTASSIUM 3.7 MMOL/L 08/28/2014 CHEM 14 4012996 PROT TOT 6.2 GM/DL 08/28/2014 CHEM 14 8439030 GLUCOSE 91 MG/DL 08/28/2014 CHEM 14 7235851 BICARB 31 MMOL/L 08/28/2014 CHEM 14 5885182 ANION GAP 8 MEQ/L 08/28/2014 TSH 6780524 TSH 0.920 uIU/ML 08/28/2014 LIPID GRP HDL TEST 69 MG/DL 08/28/2014 LIPID GRP TRIG 158 MG/DL 08/28/2014 LIPID GRP TEST LDL 96 MG/DL 08/28/2014 LIPID GRP CHOL 197 MG/DL 08/28/2014 LIPID GRP RCHOL/HDL 2.86 RATIO 08/28/2014 LIPID GRP NON-HDL CH 128 MG/DL 08/28/2014 GFR CALC 5988204 GFR AA >60 ML/MIN 08/28/2014 GFR CALC 8776389 GFR NON-AA >60 ML/MIN 08/28/2014 LIPID GRP HDL TEST 73 MG/DL 04/16/2014 LIPID GRP TRIG 131 MG/DL 04/16/2014 LIPID GRP TEST LDL 99 MG/DL 04/16/2014 LIPID GRP CHOL 198 MG/DL 04/16/2014 LIPID GRP RCHOL/HDL 2.71 RATIO 04/16/2014 LIPID GRP NON-HDL CH 125 MG/DL 04/16/2014 CHEM 14 3929795 AST 17 U/L 04/14/2014 CHEM 14 3632496 ALT 17 IU/L 04/14/2014 CHEM 14 6215750 BUN 15 MG/DL 04/14/2014 CHEM 14 8479677 ALBUMIN 4.3 GM/DL 04/14/2014 CHEM 14 5819839 CHLORIDE 96 MMOL/L 04/14/2014 CHEM 14 5401530 BILI TOT 0.9 MG/DL 04/14/2014 CHEM 14 0713372 ALK PHOS 65 U/L 04/14/2014 CHEM 14 0221369 SODIUM 135 MMOL/L 04/14/2014 CHEM 14 4403778 CREATININE 0.69 MG/DL 04/14/2014 CHEM 14 9341845 CALCIUM 9.5 MG/DL 04/14/2014 CHEM 14 1453310 POTASSIUM 4.1 MMOL/L 04/14/2014 CHEM 14 6936208 PROT TOT 6.6 GM/DL 04/14/2014 CHEM 14 6947701 GLUCOSE 104 MG/DL 04/14/2014 CHEM 14 6996472 BICARB 34 MMOL/L 04/14/2014 CHEM 14 7089753 ANION GAP 5 MEQ/L 04/14/2014 A1C HPLC 7964101 A1C HPLC 16889-4 5.0 % 04/14/2014 TSH 6647433 TSH 2.140 uIU/ML 04/14/2014 CBC 8578014 WBC 12.8 10e9/L 04/14/2014 CBC 4243978 RBC 4.44 10e12/L 04/14/2014 CBC 3794214 HGB 13.2 g/dL 04/14/2014 CBC 0911248 HCT DET 41.4 % 04/14/2014 CBC 4443705 MCV 93.2 fL 04/14/2014 CBC 1516382 MCH 29.7 pg 04/14/2014 CBC 0662814 MCHC 31.9 g/dL 04/14/2014 CBC 4035398 PLT 383 10e9/L 04/14/2014 CBC 7171605 MPV 10.1 fL 04/14/2014 CBC 7013527 NNEKA % 65.5 % 04/14/2014 CBC 3574232 LY % 23.0 % 04/14/2014 CBC 6913297 MON % 9.9 % 04/14/2014 CBC 6873115 EOS % 1.3 % 04/14/2014 CBC 0911372 BASO % 0.3 % 04/14/2014 CBC 2939122 RDW 13.7 % 04/14/2014 CBC 5940841 ABS NNEKA 8.38 10e9/L 04/14/2014 CBC 9218578 ABS LYMPH 2.94 10e9/L 04/14/2014 CBC 4159425 ABS MONO 1.27 10e9/L 04/14/2014 CBC 5620912 ABS EOS 0.17 10e9/L 04/14/2014 CBC 4471889 ABS BASO 0.04 10e9/L 04/14/2014 CBC 8151940 RDW-SD 45.9 fL 04/14/2014 GFR CALC 4621042 GFR AA >60 ML/MIN 04/14/2014 GFR CALC 7625199 GFR NON-AA >60 ML/MIN 04/14/2014 FREE T4 2383622 FREE T4 1.56 NG/DL 04/14/2014 A1C HPLC 0129572 A1C HPLC 39882-8 4.9 % 11/13/2013 CHEM 14 9697271 AST 15 U/L 11/12/2013 CHEM 14 4237721 ALT 14 IU/L 11/12/2013 CHEM 14 7916471 BUN 14 MG/DL 11/12/2013 CHEM 14 7689294 ALBUMIN 4.3 GM/DL 11/12/2013 CHEM 14 8335925 CHLORIDE 101 MMOL/L 11/12/2013 CHEM 14 0800263 BILI TOT 0.9 MG/DL 11/12/2013 CHEM 14 7795793 ALK PHOS 67 U/L 11/12/2013 CHEM 14 7417595 SODIUM 139 MMOL/L 11/12/2013 CHEM 14 6720950 CREATININE 0.67 MG/DL 11/12/2013 CHEM 14 2369536 CALCIUM 9.5 MG/DL 11/12/2013 CHEM 14 1964857 POTASSIUM 4.1 MMOL/L 11/12/2013 CHEM 14 2645516 PROT TOT 6.5 GM/DL 11/12/2013 CHEM 14 0822995 GLUCOSE 102 MG/DL 11/12/2013 CHEM 14 1728490 BICARB 30 MMOL/L 11/12/2013 CHEM 14 3185262 ANION GAP 8 MEQ/L 11/12/2013 LIPID GRP HDL TEST 66 MG/DL 11/12/2013 LIPID GRP TRIG 130 MG/DL 11/12/2013 LIPID GRP TEST LDL 108 MG/DL 11/12/2013 LIPID GRP CHOL 200 MG/DL 11/12/2013 LIPID GRP RCHOL/HDL 3.03 RATIO 11/12/2013 GFR CALC 8405175 GFR AA >60 ML/MIN 11/12/2013 GFR CALC 0328306 GFR NON-AA >60 ML/MIN 11/12/2013 TSH 7753316 TSH 2.445 uIU/ML 11/12/2013 FREE T4 5220112 FREE T4 1.09 NG/DL 11/12/2013 CBC 0884066 WBC 7.6 10e9/L 11/12/2013 CBC 1141657 RBC 4.42 10e12/L 11/12/2013 CBC 6639388 HGB 13.1 g/dL 11/12/2013 CBC 4945652 HCT DET 41.2 % 11/12/2013 CBC 1457752 MCV 93.2 fL 11/12/2013 CBC 1673621 MCH 29.6 pg 11/12/2013 CBC 5392146 MCHC 31.8 g/dL 11/12/2013 CBC 2728945 PLT 314 10e9/L 11/12/2013 CBC 1220639 MPV 10.4 fL 11/12/2013 CBC 1416015 NNEKA % 59.8 % 11/12/2013 CBC 1478585 LY % 28.1 % 11/12/2013 CBC 5375163 MON % 9.5 % 11/12/2013 CBC 6958630 EOS % 1.8 % 11/12/2013 CBC 4846419 BASO % 0.8 % 11/12/2013 CBC 9138952 RDW 13.8 % 11/12/2013 CBC 5735006 ABS NNEKA 4.54 10e9/L 11/12/2013 CBC 2074387 ABS LYMPH 2.14 10e9/L 11/12/2013 CBC 1777644 ABS MONO 0.72 10e9/L 11/12/2013 CBC 3499230 ABS EOS 0.14 10e9/L 11/12/2013 CBC 8021610 ABS BASO 0.06 10e9/L 11/12/2013 CBC 3531320 RDW-SD 46.0 fL 11/12/2013 HS ENE ZOS 8230014 HS ENE ZOS IMMUNE 04/04/2013 A1C 0417190 A1C HPLC 10550-0 5.2 % 04/03/2013 CHEM 14 4503227 AST 16 U/L 03/31/2013 CHEM 14 5253650 ALT 12 IU/L 03/31/2013 CHEM 14 0870670 BUN 17 MG/DL 03/31/2013 CHEM 14 5397305 ALBUMIN 4.5 GM/DL 03/31/2013 CHEM 14 1251989 CHLORIDE 98 MMOL/L 03/31/2013 CHEM 14 0882317 BILI TOT 0.7 MG/DL 03/31/2013 CHEM 14 7236192 ALK PHOS 53 U/L 03/31/2013 CHEM 14 9487400 SODIUM 137 MMOL/L 03/31/2013 CHEM 14 0236386 CREATININE 0.66 MG/DL 03/31/2013 CHEM 14 6075100 CALCIUM 9.6 MG/DL 03/31/2013 CHEM 14 6329067 POTASSIUM 4.2 MMOL/L 03/31/2013 CHEM 14 0426986 PROT TOT 6.7 GM/DL 03/31/2013 CHEM 14 4560076 GLUCOSE 101 MG/DL 03/31/2013 CHEM 14 3953206 BICARB 33 MMOL/L 03/31/2013 CHEM 14 7907971 ANION GAP 6 MEQ/L 03/31/2013 TSH 8765125 TSH 2.689 uIU/ML 03/31/2013 LIPID GRP HDL TEST 63 MG/DL 03/31/2013 LIPID GRP TRIG 157 MG/DL 03/31/2013 LIPID GRP TEST LDL 98 MG/DL 03/31/2013 LIPID GRP CHOL 192 MG/DL 03/31/2013 LIPID GRP RCHOL/HDL 3.05 RATIO 03/31/2013 FREE T4 2067744 FREE T4 1.19 NG/DL 03/31/2013 CBC 3312681 WBC 7.5 10e9/L 03/31/2013 CBC 0003473 RBC 4.39 10e12/L 03/31/2013 CBC 2241077 HGB 13.0 g/dL 03/31/2013 CBC 0792728 HCT DET 40.2 % 03/31/2013 CBC 6811146 MCV 91.6 fL 03/31/2013 CBC 9578484 MCH 29.6 pg 03/31/2013 CBC 7736271 MCHC 32.3 g/dL 03/31/2013 CBC 2077148 PLT 305 10e9/L 03/31/2013 CBC 6966663 MPV 10.4 fL 03/31/2013 CBC 0457399 NNEKA % 56.8 % 03/31/2013 CBC 6692454 LY % 30.3 % 03/31/2013 CBC 1428075 MON % 9.8 % 03/31/2013 CBC 5567988 EOS % 2.3 % 03/31/2013 CBC 5194894 BASO % 0.8 % 03/31/2013 CBC 7961451 RDW 13.2 % 03/31/2013 CBC 7018175 ABS NNEKA 4.26 10e9/L 03/31/2013 CBC 7024704 ABS LYMPH 2.27 10e9/L 03/31/2013 CBC 7827106 ABS MONO 0.74 10e9/L 03/31/2013 CBC 4656694 ABS EOS 0.17 10e9/L 03/31/2013 CBC 6248931 ABS BASO 0.06 10e9/L 03/31/2013 CBC 2812992 RDW-SD 43.2 fL 03/31/2013 GFR CALC 3804823 GFR AA >60 ML/MIN 03/31/2013 GFR CALC 4536410 GFR NON-AA >60 ML/MIN 03/31/2013 FREE T4 [id number] FREE T4 1.30 NG/DL 09/11/2012 GFR CALC 5521233 GFR AA >60 ML/MIN 09/11/2012 GFR CALC 7454778 GFR NON-AA >60 ML/MIN 09/11/2012 A1C HPLC 5635913 A1C HPLC 85096-7 4.5 % 09/11/2012 CHEM 14 1144557 AST 16 U/L 09/11/2012 CHEM 14 3374162 ALT 15 IU/L 09/11/2012 CHEM 14 4086403 BUN 11 MG/DL 09/11/2012 CHEM 14 1592333 ALBUMIN 4.2 GM/DL 09/11/2012 CHEM 14 3024525 CHLORIDE 101 MMOL/L 09/11/2012 CHEM 14 9235212 BILI TOT 0.8 MG/DL 09/11/2012 CHEM 14 6930570 ALK PHOS 57 U/L 09/11/2012 CHEM 14 5749018 SODIUM 141 MMOL/L 09/11/2012 CHEM 14 9228635 CREATININE 0.62 MG/DL 09/11/2012 CHEM 14 5248462 CALCIUM 9.5 MG/DL 09/11/2012 CHEM 14 2001948 POTASSIUM 4.7 MMOL/L 09/11/2012 CHEM 14 2982871 PROT TOT 6.6 GM/DL 09/11/2012 CHEM 14 9500835 GLUCOSE 90 MG/DL 09/11/2012 CHEM 14 0850776 BICARB 32 MMOL/L 09/11/2012 CHEM 14 8565322 ANION GAP 8 MEQ/L 09/11/2012 CBC 9675344 WBC 7.5 10e9/L 09/11/2012 CBC 2094041 RBC 3.99 10e12/L 09/11/2012 CBC 9938376 HGB 11.7 g/dL 09/11/2012 CBC 4653927 HCT DET 37.7 % 09/11/2012 CBC 8473298 MCV 94.5 fL 09/11/2012 CBC 9120614 MCH 29.3 pg 09/11/2012 CBC 6012340 MCHC 31.0 g/dL 09/11/2012 CBC 5450470 PLT 384 10e9/L 09/11/2012 CBC 5653920 MPV 11.0 fL 09/11/2012 CBC 1647299 NNEKA % 51.7 % 09/11/2012 CBC 9503115 LY % 35.2 % 09/11/2012 CBC 8055787 MON % 10.4 % 09/11/2012 CBC 6610717 EOS % 2.3 % 09/11/2012 CBC 0208328 BASO % 0.4 % 09/11/2012 CBC 5496870 RDW 14.2 % 09/11/2012 CBC 2237937 ABS NNEKA 3.88 10e9/L 09/11/2012 CBC 8804363 ABS LYMPH 2.64 10e9/L 09/11/2012 CBC 3168624 ABS MONO 0.78 10e9/L 09/11/2012 CBC 0403856 ABS EOS 0.17 10e9/L 09/11/2012 CBC 4951589 ABS BASO 0.03 10e9/L 09/11/2012 CBC 9680758 RDW-SD 47.1 fL 09/11/2012 TSH 9244026 TSH 2.118 uIU/ML 09/11/2012 LIPID GRP HDL TEST 49 MG/DL 09/11/2012 LIPID GRP TRIG 134 MG/DL 09/11/2012 LIPID GRP TEST LDL 81 MG/DL 09/11/2012 LIPID GRP CHOL 157 MG/DL 09/11/2012 LIPID GRP RCHOL/HDL 3.20 RATIO 09/11/2012 BMP GLUCOSE 93 MG/DL 04/16/2012 BMP CREATININE 0.64 MG/DL 04/16/2012 BMP BUN 12 MG/DL 04/16/2012 BMP [id number] SODIUM 139 MMOL/L 04/16/2012 BMP POTASSIUM 4.1 MMOL/L 04/16/2012 BMP CHLORIDE 99 MMOL/L 04/16/2012 BMP BICARB 32 MMOL/L 04/16/2012 BMP ANION GAP 8 MEQ/L 04/16/2012 BMP 9878383 CALCIUM 9.8 MG/DL 04/16/2012 CBC 8443353 WBC 8.5 10e9/L 04/16/2012 CBC 7592475 RBC 3.98 10e12/L 04/16/2012 CBC 5914650 HGB 11.5 g/dL 04/16/2012 CBC 4821689 HCT DET 36.7 % 04/16/2012 CBC 7374330 MCV 92.2 fL 04/16/2012 CBC 6628832 MCH 28.9 pg 04/16/2012 CBC 2944367 MCHC 31.3 g/dL 04/16/2012 CBC 0790187 PLT 321 10e9/L 04/16/2012 CBC 5038617 MPV 10.2 fL 04/16/2012 CBC 5693209 NNEKA % 64.3 % 04/16/2012 CBC 2982344 LY % 24.3 % 04/16/2012 CBC 4133692 MON % 9.0 % 04/16/2012 CBC 3550979 EOS % 1.9 % 04/16/2012 CBC [id number] BASO % 0.5 %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 Diagnosis: Subungual contusion of toenail[ICD9: 924.3] Concepción Flanagan MD [facility] CPT-4: 29868 05/27/2012 Postop follow up visit related to original px Diagnosis: BENIGN ERLINDA SKIN ARM[ICD9: 216.6] Diagnosis: BENIGN ERLINDA SKIN TRUNK[ICD9: 216.5] Concepción Flanagan MD [facility] CPT-4: 57832 05/03/2012 ([id number]) 52926 EST. PATIENT, LEVEL IV Diagnosis: ESSENTIAL HYPERTENSION[SNOMED: 12147075] Diagnosis: OA (osteoarthritis) of knee[ICD9: 715.96] Diagnosis: EDEMA[ICD9: 782.3] Concepción Flanagan MD [facility] CPT-4: 64176 03/25/2012 82039 EST. PATIENT, LEVEL IV Diagnosis: ESSENTIAL HYPERTENSION[SNOMED: 57923902] Diagnosis: Abdominal bloating[ICD9: 787.3] Concepción Flanagan MD [facility] CPT- 4: 54903 03/12/2012 ([id number]) 45936 EST. PATIENT, LEVEL IV Diagnosis: ESSENTIAL HYPERTENSION[SNOMED: 78880382] Diagnosis: EDEMA[ICD9: 782.3] Concepción Flanagan MD [facility] CPT-4: 14179 01/23/2012 ([id number]) 92728 EST. PATIENT, LEVEL III Diagnosis: Breast pain, left[ICD9: 611.71] Chaparrita Flanagan MD [facility] CPT-4: 69322 01/12/2012 ([id number]) 33431 EST. PATIENT, LEVEL IV Diagnosis: ESSENTIAL HYPERTENSION[SNOMED: 26094516] Diagnosis: DEPRESSIVE DISORDER NEC[ICD9: 311] Diagnosis: ANXIETY STATE[ICD9: 300.00] Concepción Flanagan MD [facility] CPT- 4: 46315 12/25/2011 ([id number]) 14419 EST. PATIENT, LEVEL IV Diagnosis: ESSENTIAL HYPERTENSION[SNOMED: 03076158] Diagnosis: EDEMA[ICD9: 782.3] Concepción Flanagan MD [facility] CPT-4: 41046 12/04/2011 ([id number]) 15720 EST. PATIENT, LEVEL IV Diagnosis: ESSENTIAL HYPERTENSION[SNOMED: 60084916] Diagnosis: DEPRESSIVE DISORDER NEC[ICD9: 311] Concepción Flanagan MD [facility] CPT-4: 94145 09/20/2011 82933 EST. PATIENT, LEVEL IV Diagnosis: Dysuria[ICD9: 788.1] Diagnosis: ESSENTIAL HYPERTENSION[SNOMED: 62460694] Diagnosis: Anxiety[ICD9: 300.00] Concepción Flanagan MD [facility] CPT-4: 92374 09/06/2011 ([id number]) 75361 EST. PATIENT, LEVEL IV Diagnosis: LUMBAGO[ICD9: 724.2] Diagnosis: ESSENTIAL HYPERTENSION[SNOMED: 48222616] Concepción Flanagan MD, [facility] CPT-4: 15973 08/30/2011 55126 EST. PATIENT, LEVEL III Diagnosis: ACUTE SINUSITIS[ICD9: 461.9] Diagnosis: Urinary frequency[ICD9: 788.41] Chaparrita Flanagan MD, [facility] CPT-4: 46122 08/23/2011 98925 EST. PATIENT, LEVEL III Diagnosis: Lesion of labia[ICD9: 624.8] Chaparrita Flanagan MD, [facility] CPT-4: 06265 08/09/2011 02737 EST. PATIENT, LEVEL IV Diagnosis: HYPOTHYROIDISM[ICD9: 244.9] Diagnosis: HYPERLIPIDEMIA[ICD9: 272.4] Diagnosis: BP (high blood pressure)[SNOMED: 69740054] Diagnosis: Knee pain, bilateral[ICD9: 719.46] Diagnosis: ESOPHAGEAL REFLUX[ICD9: 530.81] Concepción Flanagan MD, [facility] CPT- 4: 98585 05/04/2011 14903 EST. PATIENT, LEVEL III Diagnosis: ACUTE URI[ICD9: 465.9] Diagnosis: Asthma[ICD9: 493.90] Diagnosis: Esophageal reflux[ICD9: 530.81] Chaparrita Flanagan MD, [facility] CPT-4: 73354 04/19/2011 Plan of Care Planned Activity Notes Codes Status Date Visit Plan: Hypertension - well controlled - [...] this time. 09/03/2018 Appointment: [facility]agan [phone] [place] (15 min) Moderate 09/03/2018 Patient Education: Patient [...] and back. 05/29/2018 Appointment: Concepción Flanagan [facility]Ptel[phone] [place] (15 min) Moderate 05/29/2018 Patient Education: Patient Medication Summary Completed 05/29/2018 Care Plan: Referral Order SNOMED-CT : 978588705 Pending 05/29/2018 Visit Plan: Wound Instructions - [...] removal process. 02/06/2018 Appointment: Hayley London WPtel: [address] [place], [place] [address] (15 min) Moderate 02/06/2018 Patient Education: Patient [...] medications. 01/23/2018 Appointment: Concepción Flanagan WPtel: [phone] [facility] (15 min) Moderate 01/23/2018 Patient Education: Patient Medication Summary Completed 01/23/2018 Visit Plan: Cough - improved - sinusitis resolved. 09/26/2017 Appointment: Concepción Flanagan WPtel: [phone] [facility] (15 min) Moderate 09/26/2017 Patient Education: Patient Medication Summary Completed 09/26/2017 Visit Plan: Acute Maxillary Sinusitis - if not improving - pt would like to see an ENT - [facility] Tompkins in [place]. Treatment as follows: cefdinir - antibiotic twice [...] refilled hydrocodone. 09/12/2017 Appointment: Concepción Flanagan WPtel: [phone] [facility] (15 min) Moderate 09/12/2017 Patient Education: Patient [...] allergy spray. 08/31/2017 Appointment: Hayley London WPtel: [facility]2 [facility] (30 min) Complex 08/31/2017 Patient Education: Patient Medication Summary Completed 08/31/2017 Visit Plan: URI - Pt advised to increase fluids, vitamin C. Discussed natural and expected course of this diagnosis and need to alert me if symptoms do not follow expected course, or if any worse. RX sent to patient' s pharmacy. 08/09/2017 Appointment: Chap[facility]rita Arrieta [phone] (30 min) Complex 08/09/2017 Patient Education: [...] refilled hydrocodone. 05/07/2017 Appointment: Concepción Flanagan [facility]Ptel[phone] (15 min) Moderate 05/07/2017 Patient Education: Patient [...] care surrogate. 04/12/2017 Appointment: Hayley London WPtel: [facility]3 [facility] [facility] - Annual Wellness Visit 04/12/2017 Patient Education: Patient Medication Summary Completed 04/12/2017 Appointment: Nurse Visit 02/15/2017 Patient Education: Patient Medication Summary Completed 02/15/2017 Visit Plan: Hnlqf-akohbqcnxd-xjudq zpack when finished with cipro-follow up chest [...] day-follow up Sunday02/02/2017 Appointment: Chaparrita Arrieta WPtel: [facility]9 [phone] (15 min) Moderate 02/02/2017 Patient Education: Patient Medication Summary Completed 02/02/2017 Patient Education: Obesity Completed 02/02/2017 Visit Plan: Sinusitis - Pt has acute infection - pain in face, maxillary region, Pt informed to use decongestant, RX given to patient, sinus rinses also recommended. Call if symptoms do not show improvement. 01/15/2017 Appointment: Chaparrita Arrieta WPtel: [facility]7 [phone] (10 min) Simple 01/15/2017 Patient Education: Patient [...] shot today 01/04/2017 Appointment: Concepción Flanagan WPtel: [phone] [facility] (15 min) Moderate 01/04/2017 Patient Education: Patient [...] (lexapro). 09/07/2016 Appointment: Concepción Flanagan [facility]Ptel: [phone] (30 min) Complex 09/07/2016 Patient Education: Patient [...] home. 07/06/2016 Appointment: Concepción Flanagan WPtel: [phone] (15 min) Moderate 07/06/2016 Patient Education: Patient [...] TWICE DAILY 06/08/2016 Appointment: Concepción Flanagan WPtel: [phone] (15 min) Moderate 06/08/2016 Patient Education: Patient [...] peripheral edema. 04/06/2016 Appointment: Concepción Flanagan WPtel: [phone] [facility] (15 min) Moderate 04/06/2016 Patient Education: Patient [...] for Mikala. 01/18/2016 Appointment: Concepción Flanagan WPtel: [address] [place], [place] [address] (15 min) Moderate 01/18/2016 Patient Education: Patient [...] improved-will fax today's note to [facility] for re-certification of oxygen. 09/09/2015 Visit Plan: [...] daytime fatigue improved-will fax today's note to [facility] for re-certification of oxygen. 09/09/2015 Appointment: (15 [...] discuss with her son who is a Mixing Machine Tender [employer] - and consider re-evaluation for nasal pillows with her cpap since she could not tolerate a face mask cpap in the past. 12/25/2014 Appointment: Concepción Flanagan WPtel: [phone] [facility] Follow up 12/25/2014 Patient Education: Patient Medication [...] at home. 10/13/2014 Appointment: Concepción Flanagan WPtel: [phone] [facility] Follow up 10/13/2014 Patient Education: Patient Medication [...] her . 08/28/2014 Appointment: Concepción Flanagan WPtel: [phone] Follow up 08/28/2014 Patient Education: Patient Medication [...] monitor creatinine. 04/16/2014 Appointment: Concepción Flanagan WPtel: [phone] [facility] Follow up 04/16/2014 Patient Education: Patient Medication Summary Completed 04/16/2014 Patient Education: Patient Medication Summary Completed 04/14/2014 Patient Education: Hypertension Completed 04/14/2014 Visit Plan: Wound Instructions - Pt was instruced to keep the wound clean, wash with antibacterial soap, use triple antibiotic ointment, call if redness, pustular drainage, or any other acute conerns. 01/27/2014 Appointment: Concepción Flanagan WPtel: [phone] [facility] Surgical Procedure 01/27/2014 Patient Education: Patient Medication [...] home eval. 01/21/2014 Appointment: Concepción Flanagan WPtel: [facility] Follow up 01/21/2014 Patient Education: Patient Medication Summary Completed 01/21/2014 Patient Education: Hypertension Completed 01/21/2014 Visit Plan: Hypotension - Bradycardia - pt to stop her metroprolol - check bp and heart rate twice daily and monitor symptoms. Call if bp uncontrolled- or heart rate to elevated. 01/07/2014 Appointment: Concepción Flanagan WPtel: [phone] Follow up 01/07/2014 Patient Education: Hypertension Completed [...] and swallow 11/12/2013 Appointment: Chaparrita Arrieta WPtel: [address] [place], [place] [id number] [place] [address] Sick 11/12/2013 Patient Education: Patient Medication Summary Completed 11/12/2013 Patient Education: Hypertension Completed 11/12/2013 Visit Plan: Sinusitis - Pt has acute infection - pain in face, maxillary region, Pt informed to use decongestant, RX given to patient, sinus rinses also recommended. Call if symptoms do not show improvement. 10/09/2013 Appointment: Chaparrita Arrieta WPtel: [facility]5 [phone] Sick 10/09/2013 Patient Education: Patient Medication [...] check UA 04/03/2013 Appointment: Concepción Flanagan WPtel: [facility]2 [facility] Follow up 04/03/2013 Patient Education: Patient Medication Summary Completed 04/03/2013 Patient Education: Hypertension Completed 04/03/2013 Patient Education: Patient Medication Summary Completed 03/31/2013 Patient Education: Hypertension Completed 03/31/2013 Visit Plan: ua performed - sent for culture if indicated. 03/21/2013 Appointment: Concepción Flanagan WPtel: [address] [place], [place] [phone] Lab Draw 03/21/2013 Patient Education: Patient Medication [...] edema. 01/06/2013 Appointment: Concepción Flanagan WPtel: [phone] Follow up 01/06/2013 Patient Education: Patient Medication Summary Completed 01/06/2013 Patient Education: Hypertension Completed 01/06/2013 Visit Plan: Hbkwelykl-Zeoaub-yxjkphrj not well controlled- KENALOG injection today in [...] edema. 10/28/2012 Appointment: Concepción Flanagan WPtel: [phone] [facility] Follow up 10/28/2012 Patient Education: Patient Medication [...] treatment recommendations. 09/30/2012 Appointment: Concepción Flanagan WPtel: [facility]5 [facility] Follow up 09/30/2012 Patient Education: Patient Medication Summary Completed 09/30/2012 Patient Education: Hypertension Completed 09/30/2012 Appointment: Concepción Flanagan WPtel: [facility]5 [facility] Lab Draw 09/11/2012 Patient Education: Patient Medication [...] - resolved 08/14/2012 Appointment: Concepción Flanagan WPtel: [facility]5 [facility] Follow up 08/14/2012 Patient Education: Patient Medication Summary Completed 08/14/2012 Patient Education: Hypertension Completed 08/14/2012 Visit Plan: Cellulitis - start with generic Bactrim DS as directed, return to clinic as previously directed, call for acute change in symptoms, worsening redness, warmth, discharge. 08/05/2012 Appointment: Concepción Flanagan WPtel: [facility]5 [facility] Follow up 08/05/2012 Patient Education: Patient Medication [...] to help soften stools. 07/15/2012 Appointment: Concepción Flanaganl: [facility]5 [facility] [facility] follow up 07/15/2012 Patient Education: Patient Medication Summary Completed 07/15/2012 Patient Education: Hypertension Completed 07/15/2012 Visit Plan: Subungual discoloratiion of toenail- June 10 [address] is to see Dr[address] Bee - I have discussed the case with the pt and Dr. bee and she will likely have a biopsy of the digit and avulsion of the nail. 05/27/2012 Appointment: Concepción Flanagan WPtel: [facility]5 [facility] [facility] 05/27/2012 Patient Education: Patient Medication Summary Completed 05/27/2012 Appointment: Chaparrita Arrieta WPtel: [phone] Follow up 05/16/2012 Visit Plan: Obesity [...] vaccine 05/03/2012 Appointment: Chaparrita Arrieta WPtel: [phone] [phone] Follow up 05/03/2012 Patient Education: Patient Medication Summary Completed 05/03/2012 Visit Plan: Wound Instructions - Pt was instruced to keep the wound clean, wash with antibacterial soap, use triple antibiotic ointment, call if redness, pustular drainage, or any other acute conerns. 04/23/2012 Appointment: Demi Flanagany WPtel: [facility] Surgical Procedure 04/23/2012 Patient Education: Patient Medication Summary Completed 04/23/2012 Appointment: Demi Flanagany WPtel: [phone] Lab Draw 04/16/2012 Patient Education: Patient Medication [...] readings at home. Recommend follow up with printed circuit board designer for clearance before knee surgery. Will get [...] to thighs. 03/25/2012 Appointment: Concepción Flanagan WPtel: [phone] Other 03/25/2012 Patient Education: Patient Medication Summary [...] of lesion. 03/12/2012 Appointment: Chaparrita Arrieta WPtel: [facility] Other 03/12/2012 Patient Education: Patient Medication Summary [...] at home. 01/23/2012 Appointment: Concepción Flanagan WPtel: [address] [place] [address] Other 01/23/2012 Patient Education: Patient Medication Summary Completed 01/23/2012 Patient Education: High Blood Pressure: Essential Hypertension Completed 2011 Visit Plan: Breast xtud-zljn-iyfevjbbp natural and expected course of this diagnosis and to alert me if symptoms do not follow expected course, or if any worse. Plan for diagnostic mammogram, in meantime, instructed patient to get more supportive bra, use anti-inflammatories and monitor symptoms. Patient verbalized understanding of plan. 01/12/2012 Appointment: Chaparrita Arrieta WPtel: [facility]5 [facility] [place] [address] Other 01/12/2012 Patient Education: Patient Medication Summary [...] current medications. 12/25/2011 Appointment: Concepción Flanagan WPtel: [phone] [facility] Other 12/25/2011 Patient Education: Patient Medication Summary [...] COMPRESSION SOCKS. 12/04/2011 Appointment: Concepción Flanagan WPtel: [facility]9 [facility] [place] Other 12/04/2011 Patient Education: Patient Medication Summary Completed 12/04/2011 Patient Education: High Blood Pressure: Essential Hypertension Completed 2011 Appointment: Chaparrita Arrieta WPtel: [facility]1 [phone] [place] Lab Draw 12/01/2011 Patient Education: Patient Medication Summary Completed 12/01/2011 Appointment: Concepción Flanagan WPtel: [phone] [facility] [place] Lab Draw 11/20/2011 Patient Education: Patient [...] acutely worsen. 09/20/2011 Appointment: Concepción Flanagan WPtel: [phone] Other 09/20/2011 Patient Education: Patient Medication Summary Completed 09/20/2011 Patient Education: High Blood Pressure: Essential Hypertension Completed 2011 Appointment: Concepción Flanagan WPtel: [phone] Other 09/13/2011 Visit Plan: Hypertension - The [...] benefits of treament with the above medications. Yeuzced-pqsaexup-UU negative 09/06/2011 Appointment: Chaparrita Arrieta WPtel: [phone] [facility] [place] [address] Other 09/06/2011 Patient Education: Patient Medication Summary [...] they worsen. 08/30/2011 Appointment: Concepción Flanagan WPtel: 101 [facility] [place] Other 08/30/2011 Patient Education: Patient Medication Summary [...] patient's pharmacy. 08/23/2011 Appointment: Chaparrita Arrieta WPtel: [facility]5 [facility] [place] [address] Other 08/23/2011 Patient Education: Patient Medication Summary Completed 08/23/2011 Visit Plan: Labial cyst-discussed natural and expected course of this diagnosis and to alert me if symtpoms do not follow expected course, or if any worse. Patient and verbalized understanding. 08/09/2011 Appointment: Chaparrita Arrieta WPtel: [facility]5 [phone] Other 08/09/2011 Patient Education: Patient Medication Summary [...] not improving. 05/04/2011 Appointment: Concepción Flanagan WPtel: [facility]5 [facility] [place] Other 05/04/2011 Patient Education: Patient Medication [...] given of nexium 40mg daily. 04/19/2011 Appointment: Berny Chaparrita WPtel: [phone] [place] 04/19/2011 Patient Education: Patient Medication Summary Completed 04/19/2011 Referral: External, Ordering Provider Referral Appointment Requested Instructions Comment DECREASE CRESTOR TO SUNDAY/SUNDAY/SUNDAY DOSING. . Hypertension [...] do not improve, or if any worse.. Sybuovwdw-Ctvskk-iknhicnx not well controlled-KENALOG injection today in the office-use albuterol as needed. Instructed patient to continue with singulair daily and call if symptoms do not improve, or worsen. . Wound Instructions - Pt was instruced [...] see an ENT - [facility]ia Tompkins in [place]. Treatment as follows: cefdinir - antibiotic twice [...] discuss with her son who is a Mixing Machine Tender [employer] - and consider re-evaluation for nasal pillows [...] etc. samples given of nexium 40mg daily. Overnight oxygen study . Sinusitis - Pt [...] during the removal process. . Hypertension - well controlled - continue with current medications, continue with no added salt diet. Pt has been encouraged to exercise daily. The pt has been advised to call the office if there are any acute concerns about change in blood pressure readings at home. Cellulitis - resolved . Hypertension - well controlled - continue [...] office if the symptoms are not improving. MIRALAX TO BE STARTED AND TAKEN DAILY [...] heart rate to elevated. . Hypertension - uncontrolled - the patient's [...] do not improve or if they worsen. Cymbalta 30mg daily Call with any side [...] benefits of treament with the above medications. Evskqba-clhriybz-BW negative . Hypertension - well controlled - continue with current medications, continue with no added salt diet. Pt has been encouraged to exercise daily. The pt has been advised to call the office if there are any acute concerns about change in blood pressure readings at home. Dysuria - check UA . Cellulitis - start with generic Bactrim DS as directed, return to clinic as previously directed, call for acute change in symptoms, worsening redness, warmth, discharge. . Wound Instructions - Pt was instructed [...] Call if symptoms do not show improvement. Recommend diagnostic mammogram with ultrasound if needed Get supportive bra and make sure your breasts are well suppported. Recommend aleve twice daily and monitor symptoms. . Breast cyeu-pzep-enbyzvjht natural and expected course of this diagnosis and to alert me if symptoms do not follow expected course, or if any worse. Plan for diagnostic mammogram, in meantime, instructed patient to get more supportive bra, use anti- inflammatories and monitor symptoms. Patient verbalized understanding of plan. . Hypertension - uncontrolled - the patient's [...] is to call for acute concerns.STOP the NORVAS START ON THE TE[place] AND STAY ON [...] DOPA paperwork for health care surrogate. . Hypertension - well controlled - continue [...] in blood pressure readings at home. . Cough - improved - sinusitis resolved. . Allergies - chronic - recommended pt [...] and biopsy of lesion. . Hypertension - uncontrolled - the patient's [...] infection. Patient and verbalized understanding of plan. . Hypertension - well controlled - continue [...] pain - supportive care at this time. CONTINUE CIPRO OMEPRAZOLE DAILY TAKE YOUR LASIX [...] daytime fatigue improved-will fax today's note to [facility] for re-certification of oxygen. . Hypertension - [...] daytime fatigue improved-will fax today's note to [facility] for re-certification of oxygen. . Sinusitis - [...] worse. RX sent to patient's pharmacy. . Gdqjy-dshjanvhag-txpkn zpack when finished with cipro- follow up [...] months based on previous levels of control. Appointment with cardiology-Dr. Luther For your pain, [...] readings at home. Recommend follow up with printed circuit board designer for clearance before knee surgery. Will get [...]
--- NOTE | 2018-12-27 10:37 | Ophthalmologist Pre-Op Note ---
Pre-Operative Progress Note H&P Reviewed The H&P was reviewed, patient examined and no changes noted. Date H&P Reviewed: December 27, 2018 Time H&P Reviewed: 10:36 Pre-Op Dx Secondary Cataract, Right Eye SOUTH PETERS MD December 27, 2018 10:37
--- OUTSIDE RECORDS SUMMARY | 2018-12-27 10:38 | XMS REPORT | CCD ---
Author Author Chaparrita Arrieta Organization [facility] Address [address] [place] [address] Phone Care Team Providers Care Instrument Technologist Name Role Phone [facility] Un[facility] CCM Unavailable Summary Purpose Interface Exchange Insurance Providers Payer name Policy type / Coverage type Covered libertarian ID Effective Begin Date Effective End Date WPS Medicare Part B Medicare Part B [id number] 2018 Unknown AARP Medicare Part B [id number] Unknown Family history Son Diagnosis Age At [...] status Unknown 04/19/[address]: 2512974 Quit over 10 years ago 40 pack/year [...] Start Date Stop Date Status Fill Instructions Cartia XT 240 mg capsule,extended release RxNorm: 573470 TAKE ONE CAPSULE BY MOUTH DAILY 09/23/2018 09/17/2019 Active Singulair 10 mg tablet RxNorm: 679141 TAKE ONE TABLET BY MOUTH EVERY DAY 09/06/2018 10/30/2019 Active Klor-Con 10 mEq tablet,extended release RxNorm: 070228 TAKE ONE TABLET BY MOUTH TWICE A DAY 09/06/2018 06/02/2019 Active Xanax 0.25 mg tablet RxNorm: 072779 1-2 Tablet(s) PO QHS as needed insomnia 08/26/2018 11/23/2018 Active Voltaren 1 % topical gel RxNorm: 101305 APPLY TWO GRAMS TOPICALLY FOUR TIMES A DAY BILATERAL KNEES AND LOWER BACK 06/26/2018 09/23/2018 Inactive Lasix 40 mg tablet RxNorm: 978681 TAKE ONE TABLET BY MOUTH DAILY 06/20/2018 12/16/2018 Active Voltaren 1 % topical gel RxNorm: 601390 2 Gram(s) TOP QID bilateral knees and low back 05/29/2018 06/25/2018 Inactive Synthroid 50 mcg tablet RxNorm: 668618 Tablet(s) TAKE ONE TABLET BY MOUTH DAILY 05/17/2018 11/12/2018 Active Synthroid 50 mcg tablet RxNorm: 411756 TAKE ONE TABLET BY MOUTH DAILY 05/16/2018 05/16/2018 Inactive hydrocodone 5 mg-acetaminophen 325 mg tablet RxNorm: 985587 1/2 Tablet(s) PO QID as needed 05/15/2018 06/13/2018 Inactive Keflex 500 mg capsule RxNorm: 654916 1 Capsule(s) PO TID PRN 11/201705/06/2018 Inactive Silvadene 1 % topical cream RxNorm: 484971 1 Application TOP BID 04/30/2018 05/09/2018 Inactive Anusol-HC 25 mg rectal suppository RxNorm: 7700835 1 Suppository PRN INSERT 1 RECTALLY DAILY NEEDED 04/25/2018 No Stop Date Active Colace 100 mg capsule RxNorm: 7642454 1 Capsule(s) PO daily as needed 04/25/2018 No Stop Date Active meloxicam 15 mg tablet RxNorm: 301102 1 Tablet(s) PO daily TAKE ONE TABLET BY MOUTH ONE TIME A DAY 04/25/20182018 Active Silvadene 1 % topical cream RxNorm: 152377 1 Application TOP BID 04/25/2018 04/29/2018 Inactive Benicar 40 mg tablet RxNorm: 582494 TAKE ONE TABLET BY MOUTH DAILY 04/04/2018 03/29/2019 Active Xanax 0.25 mg tablet RxNorm: 055401 1-2 Tablet(s) PO QHS as needed insomnia 03/07/2018 06/04/2018 Inactive Lasix 40 mg tablet RxNorm: 909952 TAKE ONE TABLET BY MOUTH DAILY 01/07/2018 06/19/2018 Inactive Crestor 10 mg tablet RxNorm: 513967 TAKE 1 TABLET BY MOUTH ON SUNDAY, SUNDAY, AND Sunday11/20/2017 05/18/2018 Inactive Synthroid 50 mcg tablet RxNorm: 673135 TAKE ONE TABLET BY MOUTH DAILY 11/14/2017 05/12/2018 Inactive Diflucan 150 mg tablet RxNorm: 625165 1 Tablet(s) PO daily 09/25/2017 Inactive cefdinir 300 mg capsule RxNorm: 102751 1 Capsule(s) PO BID 09/25/2017 Inactive Cartia XT 240 mg capsule,extended release RxNorm: 877618 TAKE ONE CAPSULE BY MOUTH DAILY 09/12/2017 09/06/2018 Inactive prednisone 20 mg tablet RxNorm: 107762 2 Tablet(s) PO daily 12/201709/04/2017 Inactive Xanax 0.25 mg tablet RxNorm: 664031 1-2 Tablet(s) PO QHS as needed insomnia 08/28/2017 11/24/2017 Inactive Keflex 500 mg capsule RxNorm: 234788 1 Capsule(s) PO TID 201708/27/2017 Inactive Keflex 500 mg capsule RxNorm: 625436 1 Capsule(s) PO TID 201709/03/2017 Inactive Klor-Con 10 mEq tablet,extended release RxNorm: 012894 TAKE ONE TABLET BY MOUTH TWICE A DAY 08/23/2017 08/17/2018 Inactive cefdinir 300 mg capsule RxNorm: 822796 1 Capsule(s) PO BID 08/12/2017 Inactive cefdinir 300 mg capsule RxNorm: 097308 1 Capsule(s) PO BID 08/19/2017 Inactive Kenalog 40 mg/mL suspension for injection RxNorm: 9904841 1 Milliliter(s) Inj 08/09/2017 08/09/2017 Inactive ceftriaxone 500 mg solution for injection RxNorm: 8872207 Inj 08/09/2017 08/09/2017 Inactive Zithromax Z-Hebert 250 mg tablet RxNorm: 430445 1 Tablet(s) PO UD 08/09/2017 08/13/2017 Inactive Singulair 10 mg tablet RxNorm: 205497 TAKE ONE TABLET BY MOUTH EVERY DAY 08/03/2017 09/05/2018 Inactive Xanax 0.25 mg tablet RxNorm: 257541 1-2 Tablet(s) PO QHS as needed insomnia 07/25/2017 05/28/2018 Inactive Benicar 40 mg tablet RxNorm: 579326 TAKE ONE TABLET BY MOUTH DAILY 07/09/2017 04/03/2018 Inactive Lasix 40 mg tablet RxNorm: 928473 TAKE ONE TABLET BY MOUTH DAILY 07/09/2017 01/04/2018 Inactive Synthroid 50 mcg tablet RxNorm: 942642 1 Tablet(s) PO daily TAKE ONE TABLET BY MOUTH DAILY 05/21/2017 11/13/2017 Inactive Must be name brand Lasix 40 mg tablet RxNorm: TAKE ONE TABLET BY MOUTH DAILY 04/12/2017 07/08/2017 Inactive Zithromax Z-Hebert 250 mg tablet RxNorm: 149566 1 Tablet(s) PO UD 02/05/2017 02/09/2017 Inactive start with finished with cipro Cipro 500 mg tablet RxNorm: 474887 1 Tablet(s) PO BID 201602/07/2017 Inactive prednisone 20 mg tablet RxNorm: 512751 1 Tablet(s) PO BID 01/1501/19/2017 Inactive take 1 in the morning and 1 at noon calcium carbonate 600 mg calcium (1,500 mg) tablet RxNorm: 869179 1 Tablet(s) PO daily 01/04/2017 No Stop Date Active Kenalog 40 mg/mL suspension for injection RxNorm: 3151298 1 Milliliter(s) Inj 01/04/2017 01/04/2017 Inactive Anusol-HC 25 mg rectal suppository RxNorm: 5268365 1 Suppository PRN INSERT 1 RECTALLY DAILY NEEDED 01/04/20172016 Inactive Lasix 40 mg tablet RxNorm: 369264 TAKE ONE TABLET BY MOUTH DAILY 12/20/2016 04/11/2017 Inactive Cartia XT 240 mg capsule,extended release RxNorm: 032578 TAKE ONE CAPSULE BY MOUTH DAILY 12/20/2016 09/11/2017 Inactive Synthroid 50 mcg tablet RxNorm: 334124 1 Tablet(s) PO daily TAKE ONE TABLET BY MOUTH DAILY 11/27/2016 05/20/2017 Inactive Must be name brand meloxicam 15 mg tablet RxNorm: 722325 Tablet(s) TAKE ONE TABLET BY MOUTH ONE TIME A DAY 11/27/2016 06/24/2017 Inactive Crestor 10 mg tablet RxNorm: 409430 TAKE 1 TABLET BY MOUTH ON SUNDAY, SUNDAY, AND Sunday11/13/2016 10/14/2017 Inactive Lexapro 10 mg tablet RxNorm: 085394 1 Tablet(s) PO daily 201601/03/2017 Inactive please make sure that her RX for lexapro is a 10mg dose - delete the 5mg lexapro pill - this is FYI Klor-Con 10 mEq tablet,extended release RxNorm: 434802 TAKE ONE TABLET BY MOUTH TWICE A DAY 08/29/2016 02/24/2017 Inactive Kenalog 40 mg/mL suspension for injection RxNorm: 4143389 Milliliter(s) Inj 08/23/2016 08/23/2016 Inactive cefdinir 300 mg capsule RxNorm: 890495 1 Capsule(s) PO BID 08/28/2016 Inactive take probiotic while on abx Zithromax Z-Hebert 250 mg tablet RxNorm: 900720 1 Tablet(s) PO UD 08/11/2016 09/06/2016 Inactive Z PACK DIRECTED Lexapro 5 mg tablet RxNorm: 148998 TAKE ONE TABLET BY MOUTH EVERY EVENING 07/18/2016 09/06/2016 Inactive Singulair 10 mg tablet RxNorm: 996609 TAKE ONE TABLET BY MOUTH EVERY DAY 07/17/2016 08/02/2017 Inactive Benicar 40 mg tablet RxNorm: 791148 TAKE ONE TABLET BY MOUTH DAILY 07/17/2016 07/08/2017 Inactive Lexapro 10 mg tablet RxNorm: 770123 1 Tablet(s) PO daily 201509/06/2016 Inactive diltiazem ER 180 mg capsule,extended release RxNorm: 893311 TAKE ONE CAPSULE BY MOUTH DAILY 06/15/2016 07/05/2016 Inactive Lexapro 10 mg tablet RxNorm: 867897 1 Tablet(s) PO daily 201506/15/2016 Inactive gabapentin 600 mg tablet RxNorm: 205941 TAKE ONE TABLET BY MOUTH EVERY NIGHT AT BEDTIME NEEDED 04/27/2016 04/11/2017 Inactive Cartia XT 240 mg capsule,extended release RxNorm: 599967 1 Capsule(s) PO daily TAKE ONE CAPSULE BY MOUTH ONCE A DAY 04/17/2016 12/19/2016 Inactive Benicar 40 mg tablet RxNorm: 754922 1 Tablet(s) PO daily 201507/16/2016 Inactive she can do 90 days if she wants to Lexapro 5 mg tablet RxNorm: 156593 1 Tablet(s) PO QPM 201506/07/2016 Inactive Synthroid 50 mcg tablet RxNorm: 296448 1 Tablet(s) PO daily TAKE ONE TABLET BY MOUTH DAILY 01/18/2016 07/15/2016 Inactive Colace 100 mg capsule RxNorm: 9419386 1 Capsule(s) PO daily 04/24/2018 Inactive hydrocodone 5 mg-acetaminophen 325 mg tablet RxNorm: 572855 1/2 Tablet(s) PO QID as needed 01/18/2016 02/16/2016 Inactive Synthroid 50 mcg tablet RxNorm: 154110 Tablet(s) TAKE ONE TABLET BY MOUTH DAILY 12/23/2015 01/17/2016 Inactive Benicar 40 mg tablet RxNorm: 651658 1 Tablet(s) PO daily 201512/12/2015 Inactive Benicar 40 mg tablet RxNorm: 840320 1 Tablet(s) PO daily 201504/10/2016 Inactive meloxicam 15 mg tablet RxNorm: 664463 TAKE ONE TABLET BY MOUTH ONE TIME A DAY 11/12/2015 06/08/2016 Inactive meloxicam 15 mg tablet RxNorm: 594843 Tablet(s) TAKE ONE TABLET BY MOUTH ONE TIME A DAY 11/11/2015 11/11/2015 Inactive Lasix 40 mg tablet RxNorm: 276331 Tablet(s) TAKE ONE TABLET BY MOUTH EVERY DAY 10/19/2015 12/19/2016 Inactive diltiazem ER 180 mg capsule,extended release RxNorm: 352862 1 Capsule(s) daily TAKE ONE CAPSULE BY MOUTH ONCE A DAY 09/27/2015 04/16/2016 Inactive Crestor 10 mg tablet RxNorm: 866832 1 Tablet(s) PO Sun Frid 09/17/2015 07/12/2016 Inactive [SAVINGS FOR UNINSURED PATIENTS -- BIN:576277, PCN: ASPROD1, Group: [id number], ID# [id number], Process claim through [employer], for questions: [phone]. THIS IS NOT INSURANCE.] hydrocodone 5 mg-acetaminophen 325 mg tablet RxNorm: 796962 1-2 Tablet(s) PO Q6 PRN 09/09/2015 10/08/2015 Inactive Micardis 80 mg tablet RxNorm: 436714 1 Tablet(s) PO daily TAKE ONE TABLET BY MOUTH DAILY 08/23/2015 12/12/2015 Inactive Klor-Con 10 mEq tablet,extended release RxNorm: 389400 Tablet(s) TAKE ONE TABLET BY MOUTH TWICE A DAY 08/23/20152015 Inactive Synthroid 50 mcg tablet RxNorm: 305221 TAKE ONE TABLET BY MOUTH DAILY 07/06/2015 12/22/2015 Inactive meloxicam 15 mg tablet RxNorm: 071071 TAKE ONE TABLET BY MOUTH ONE TIME A DAY 06/22/2015 11/10/2015 Inactive Singulair 10 mg tablet RxNorm: 470701 TAKE ONE TABLET BY MOUTH EVERY DAY 05/18/2015 07/16/2016 Inactive Micardis 80 mg tablet RxNorm: 983730 TAKE ONE TABLET BY MOUTH DAILY 02/22/2015 05/04/2015 Inactive gabapentin 600 mg tablet RxNorm: 109036 1 Tablet(s) PO HS as needed 01/15/2015 01/09/2016 Inactive [SAVINGS FOR NON-COVERED DRUGS -- BIN:810383, PCN: ASPROD1, Group : [id number], ID# [id number], Questions: . THIS IS NOT INSURANCE.] diltiazem ER 180 mg capsule,extended release RxNorm: 997214 TAKE ONE CAPSULE BY MOUTH ONCE A DAY 01/07/2015 09/26/2015 Inactive meloxicam 15 mg tablet RxNorm: 642139 TAKE ONE TABLET BY MOUTH ONE TIME A DAY 11/09/2014 05/07/2015 Inactive gabapentin 600 mg tablet RxNorm: 732642 1 Tablet(s) PO HS as needed 10/13/2014 01/14/2015 Inactive [SAVINGS FOR UNINSURED PATIENTS -- BIN:[id number], PCN: ASPROD1, Group: [id number], ID# [id number], Process claim through [employer], for questions: . THIS IS NOT INSURANCE.] omeprazole 20 mg tablet,delayed release RxNorm: 090078 1 Tablet(s) PO daily 10/13/2014 11/11/2014 Inactive Synthroid 50 mcg tablet RxNorm: 579366 TAKE ONE TABLET BY MOUTH EVERY DAY 10/12/2014 01/09/2015 Inactive Synthroid 50 mcg tablet RxNorm: 879251 Tablet(s) TAKE ONE TABLET BY MOUTH EVERY DAY 10/12/2014 10/11/2014 Inactive [SAVINGS FOR UNINSURED PATIENTS -- BIN:932427, PCN: ASPROD1, Group: [id number], ID# [id number], Process claim through [employer], for questions: . THIS IS NOT INSURANCE.] Lasix 40 mg tablet RxNorm: Tablet(s) PO TAKE ONE TABLET BY MOUTH TWICE A DAY FOR 3 DAYS, THEN RESUME ONE DAILY EXCEPT ON WEDNESDAYS AND FRIDAYS TAKE ONE TWICE DAILY 09/22/2014 05/28/2018 Inactive [SAVINGS FOR UNINSURED PATIENTS -- BIN: 694704, PCN: ASPROD1, Group: [id number], ID# [id number], Process claim through [employer] , for questions: . THIS IS NOT INSURANCE.] Lasix 40 mg tablet RxNorm: TAKE ONE TABLET BY MOUTH EVERY DAY 09/22/2014 10/18/2015 Inactive Crestor 10 mg tablet RxNorm: 536730 1 Tablet(s) PO Sun08/28/2014 04/24/2015 Inactive [SAVINGS FOR UNINSURED PATIENTS -- BIN:677583, PCN: ASPROD1, Group: [id number], ID# [id number], Process claim through [employer], for questions: [phone]. THIS IS NOT INSURANCE.] Crestor 10 mg tablet RxNorm: 754169 1 Tablet(s) PO Sun08/28/2014 08/27/2014 Inactive [SAVINGS FOR UNINSURED PATIENTS -- BIN:393115, PCN: ASPROD1, Group: [id number], ID# [id number], Process claim through [employer], for questions: [phone]. THIS IS NOT INSURANCE.] Micardis 80 mg tablet RxNorm: 894517 TAKE ONE TABLET BY MOUTH EVERY DAY 08/24/2014 12/21/2014 Inactive Zithromax Z-Hebert 250 mg tablet RxNorm: 563363 Tablet(s) PO UD 08/18/2014 Inactive 2 tabs day 1, 1 tabs days 2-5 Anusol-HC 25 mg suppository RxNorm: 1444480 INSERT 1 RECTALLY DAILY NEEDED 07/13/2014 10/10/2014 Inactive Klor-Con 10 mEq tablet,extended release RxNorm: 791840 TAKE ONE TABLET BY MOUTH TWICE A DAY 06/18/2014 12/14/2014 Inactive Lomotil 2.5 mg-0.025 mg tablet RxNorm: 3172405 1 Tablet(s) PO PRN after each loose stool max 8 per day 06/15/201410/12 Inactive one after each loose bm limit 8 per day albuterol sulfate HFA 90 mcg/actuation aerosol inhaler RxNorm: 4785468 1 or2 Puff( s) INH Q4 PRN as needed 05/11/20142013 Inactive albuterol sulfate HFA 90 mcg/actuation aerosol inhaler RxNorm: 0198301 1 or2 Puff( s) INH Q4 PRN as needed 05/11/20142016 Inactive Premarin 0.625 mg/gram vaginal cream RxNorm: 851384 1/2 Gram(s) VAG every other day 05/11/2014 12/06/2014 Inactive Premarin 0.625 mg/gram vaginal cream RxNorm: 560492 1/2 Gram(s) VAG every other day 05/11/2014 05/10/2014 Inactive cefdinir 300 mg capsule RxNorm: 621187 1 Capsule(s) PO BID 06/201405/16/2014 Inactive Rocephin 500 mg solution for injection RxNorm: 427195 1 Milliliter(s) Inj 05/07/2014 05/07/2014 Inactive Singulair 10 mg tablet RxNorm: 010838 TAKE ONE TABLET BY MOUTH EVERY DAY 04/30/2014 10/12/2014 Inactive meloxicam 15 mg tablet RxNorm: 694658 1 Tablet(s) PO daily 11/08/2014 Inactive Crestor 10 mg tablet RxNorm: 633631 1 Tablet(s) PO Sun TAKE ONE TABLET BY MOUTH EVERY DAY 04/16/2014 08/27/2014 Inactive Synthroid 50 mcg tablet RxNorm: 581485 TAKE ONE TABLET BY MOUTH EVERY DAY 04/02/2014 09/28/2014 Inactive diltiazem ER 180 mg capsule,extended release RxNorm: 372416 1 Capsule(s) PO daily 01/05/2014 12/30/2014 Inactive Pennsaid 1.5 % topical drops RxNorm: 212000 Drop(s) TOP APPLY 15 - 20 DROPS TOPICALLY FOUR TIMES A DAY 12/29/2013 Inactive Rocephin 500 mg solution for injection RxNorm: 333089 Inj 12/2612/26/2013 Inactive Kenalog 40 mg/mL suspension for injection RxNorm: 4935785 Milliliter(s) Inj 12/26/2013 12/26/2013 Inactive Micardis 80 mg tablet RxNorm: 445758 Tablet(s) PO TAKE ONE TABLET BY MOUTH EVERY DAY 12/15/2013 08/23/2014 Inactive nystatin 100,000 unit/mL oral suspension RxNorm: 616518 4 Unit(s) PO QID swish and swallow 11/12/2013 12/09/2013 Inactive Kenalog 40 mg/mL suspension for injection RxNorm: 1538942 Milliliter(s) Inj 11/12/2013 11/12/2013 Inactive Lasix 40 mg tablet RxNorm: 093342 Tablet(s) PO TAKE ONE TABLET BY MOUTH TWICE A DAY FOR 3 DAYS, THEN RESUME ONE DAILY EXCEPT ON WEDNESDAYS AND FRIDAYS TAKE ONE TWICE DAILY 10/30/2013 09/21/2014 Inactive Lasix 40 mg tablet RxNorm: 039803 1 Tablet(s) PO daily 201310/29/2013 Inactive Rocephin 500 mg solution for injection RxNorm: 066417 1 Milliliter(s) Inj 10/09/2013 10/09/2013 Inactive metoprolol succinate ER 25 mg tablet,extended release 24 hr RxNorm: 664493 Tablet (s) PO TAKE ONE TABLET BY MOUTH EVERY DAY 10/02/2013 01/06/2014 Inactive metoprolol succinate ER 25 mg tablet,extended release 24 hr RxNorm: 792285 Tablet (s) PO TAKE ONE TABLET BY MOUTH EVERY DAY 08/04/2013 10/01/2013 Inactive Synthroid 50 mcg tablet RxNorm: 524817 Tablet(s) PO TAKE ONE TABLET BY MOUTH EVERY DAY 07/14/2013 04/01/2014 Inactive gabapentin 600 mg tablet RxNorm: 745246 1 Tablet(s) PO Q8 PRN 06/11/2013 06/11/2013 Inactive gabapentin 600 mg tablet RxNorm: 705073 1 Tablet(s) PO Q8 PRN 06/11/2013 03/07/2014 Inactive Neurontin 600 mg tablet RxNorm: 559800 1 Tablet(s) PO Q8 PRN 06/11/2013 Inactive Anusol-HC 25 mg suppository RxNorm: 9014541 Suppository RTL INSERT 1 RECTALLY DAILY NEEDED 04/24/2013 07/12/2014 Inactive metoprolol succinate ER 25 mg tablet,extended release 24 hr RxNorm: 229590 1 Tablet(s) PO daily 04/21/2013 08/03/2013 Inactive Premarin 0.625 mg/gram Vaginal Cream RxNorm: 501901 1/2 Gram(s) VAG every other day 04/03/2013 10/29/2013 Inactive Klor-Con 10 mEq tablet,extended release RxNorm: 457005 1 Tablet(s) PO daily 03/26/2013 03/20/2014 Inactive Klor-Con 10 mEq tablet,extended release RxNorm: 648475 1 Tablet(s) PO BID 03/24/2013 03/23/2013 Inactive Klor-Con 10 mEq tablet,extended release RxNorm: 975279 1 Tablet(s) PO BID 03/24/2013 03/25/2013 Inactive Klor-Con 10 mEq tablet,extended release RxNorm: 678481 1 Tablet(s) PO BID 03/24/2013 03/23/2013 Inactive Augmentin 875 mg-125 mg tablet RxNorm: 249968 1 Tablet(s) PO BID 03/12/2013 03/18/2013 Inactive Augmentin 875 mg-125 mg tablet RxNorm: 212393 1 Tablet(s) PO BID 03/12/2013 03/11/2013 Inactive ciprofloxacin 500 mg tablet RxNorm: 184839 1 Tablet(s) PO BID 03/11/2013 03/17/2013 Inactive ciprofloxacin 500 mg tablet RxNorm: 713863 1 Tablet(s) PO BID 03/11/2013 03/10/2013 Inactive Crestor 10 mg tablet RxNorm: 738010 1 Tablet(s) PO daily 201202/09/2013 Inactive Crestor 10 mg tablet RxNorm: 389139 Tablet(s) PO TAKE ONE TABLET BY MOUTH EVERY DAY 02/10/2013 04/15/2014 Inactive Singulair 10 mg tablet RxNorm: 634567 Tablet(s) PO TAKE ONE TABLET BY MOUTH EVERY DAY 02/04/2013 04/29/2014 Inactive Kenalog 40 mg/mL Susp for Injection RxNorm: 0114911 1 Milliliter(s) Inj 11/21/2012 11/21/2012 Inactive Pennsaid 1.5 % topical drops RxNorm: 040522 15-20 Drop(s) TOP QID 10/28/2012 11/21/2013 Inactive Micardis 80 mg tablet RxNorm: 678520 1 Tablet(s) PO daily 201210/22/2013 Inactive put this on file please, quantitiy increase Pennsaid 1.5 % Topical Drops RxNorm: 353286 15-20 Drop(s) TOP QID 10/28/2012 10/27/2012 Inactive diltiazem ER 180 mg capsule,extended release RxNorm: 837561 1 Capsule(s) PO daily 10/14/2012 10/08/2013 Inactive Pyridium 200 mg tablet RxNorm: 5345044 1 Tablet(s) PO Q8 PRN 10/12/2014 Inactive Flagyl 500 mg tablet RxNorm: 685789 1 Tablet(s) PO TID 201209/10/2012 Inactive Macrobid 100 mg capsule RxNorm: 5113874 1 Capsule(s) PO BID 03/201309/02/2012 Inactive Macrobid 100 mg capsule RxNorm: 6032996 1 Capsule(s) PO BID 03/201309/09/2012 Inactive sulfamethoxazole-trimethoprim 800 mg-160 mg tablet RxNorm: 826650 1 Tablet(s) PO BID 08/05/2012 08/14/2012 Inactive Lasix 40 mg tablet RxNorm: 059329 1 Tablet(s) PO BID pt is taking extra lasix x 3 days, then every sunday and sunday take two lasix pills. 07/15/2012 07/09/2013 Inactive Synthroid 50 mcg tablet RxNorm: 958759 1 Tablet(s) PO daily 07/09/2013 Inactive do not substitute the generic levothyroxine for the synthroid brand name.....she needs brand name synthroid. Klor-Con 10 mEq tablet,extended release RxNorm: 126177 1 Tablet(s) PO BID 07/15/2012 03/23/2013 Inactive Singulair 10 mg tablet RxNorm: 841567 1 Tablet(s) PO daily 02/03/2013 Inactive Lexapro 10 mg tablet RxNorm: 151293 1/2 Tablet(s) PO daily 06/03/2013 Inactive ProAir HFA 90 mcg/actuation Aerosol Inhaler RxNorm: 328917 2 INH Q6 PRN 04/23/2012 01/17/2016 Inactive Lexapro 10 mg tablet RxNorm: 791640 1/2 Tablet(s) PO daily 05/09/2012 Inactive metoprolol succinate ER 50 mg tablet,extended release 24 hr RxNorm: 710535 1 Tablet(s) PO daily 04/09/2012 04/09/2012 Inactive Klor-Con 10 10 mEq tablet,extended release RxNorm: 435302 1 Tablet(s) PO daily 04/01/2012 07/14/2012 Inactive metoprolol succinate ER 50 mg tablet,extended release 24 hr RxNorm: 884908 1/2 Tablet(s) PO BID 03/11/2012 04/08/2012 Inactive clonidine 0.1 mg Tab RxNorm: 439381 1 Tablet(s) PO BID 201103/12/2012 Inactive clonidine 0.1 mg Tab RxNorm: 144561 1 Tablet(s) PO BID 201102/18/2012 Inactive Micardis 80 mg Tab RxNorm: 427034 1 Tablet(s) PO daily 201102/13/2012 Inactive Micardis 80 mg tablet RxNorm: 147512 1 Tablet(s) PO daily 201110/27/2012 Inactive Synthroid 50 mcg tablet RxNorm: 798166 1 Tablet(s) PO daily 07/14/2012 Inactive Tekturna 300 mg Tab RxNorm: 5678890 1 Tablet(s) PO daily 02/1103/12/2012 Inactive Lasix 40 mg Tab RxNorm : 839487 1 Tablet(s) PO daily 12/18/2011 12/17/2011 Inactive Lasix 40 mg tablet RxNorm: 275425 1 Tablet(s) PO daily 201107/14/2012 Inactive Anusol-HC 25 mg Suppository RxNorm: 8274708 1 Suppository RTL QDAY PRN 12/04/2011 04/19/2012 Inactive lactobacillus acidophilus Cap RxNorm: 1 Capsule(s) PO BID 11/20/2011 Inactive lactobacillus acidophilus Cap RxNorm: 1 Capsule(s) PO BID 11/20/2011 Inactive Cipro 500 mg Tab RxNorm: 531714 1 Tablet(s) PO BID 201103/12/2012 Inactive lactobacillus acidophilus Cap RxNorm: 1 Capsule(s) PO BID 11/27/2011 Inactive lactobacillus acidophilus Cap RxNorm: 1 Capsule(s) PO BID 11/20/2011 Inactive Cipro 500 mg Tab RxNorm: 684005 1 Tablet(s) PO BID 201111/20/2011 Inactive Lexapro 10 mg Tab RxNorm: 771621 1 Tablet(s) PO daily 201111/12/2011 Inactive Lexapro 10 mg tablet RxNorm: 817764 1 Tablet(s) PO daily 201104/18/2012 Inactive amlodipine 10 mg Tab RxNorm: 537343 1 Tablet(s) PO daily 201112/03/2011 Inactive amlodipine 5 mg Tab RxNorm: 467541 1 Tablet(s) PO daily 201112/04/2011 Inactive Rocephin 500 mg Solution for Injection RxNorm: 935744 Inj 08/3009/20/2011 Inactive metoprolol succinate ER 25 mg 24 hr Tab RxNorm: 893602 1 Tablet(s) PO QHS 08/30/2011 09/20/2011 Inactive Ambien 10 mg Tab RxNorm: 068912 1 Tablet(s) PO HS PRN 08/3004/19/2012 Inactive Augmentin 875 mg-125 mg Tab RxNorm: 010168 1 Tablet(s) PO BID 08/25/2011 09/20/2011 Inactive Augmentin 875 mg-125 mg Tab RxNorm: 094084 1 Tablet(s) PO BID 08/25/2011 08/24/2011 Inactive Rocephin 500 mg Solution for Injection RxNorm: 374149 Inj 08/2308/23/2011 Inactive Levaquin 500 mg Tab RxNorm: 158472 1 Tablet(s) PO daily 201008/30/2011 Inactive chlordiazepoxide-clidinium 5 mg-2.5 mg Cap RxNorm: 776734 1 Capsule(s) PO BID 07/10/2011 04/19/2012 Inactive q 12 hours prn metoprolol succinate ER 100 mg 24 hr Tab RxNorm: 533164 1 Tablet(s) PO daily 05/29/2011 03/12/2012 Inactive Synthroid 50 mcg Tab RxNorm: 590711 1 Tablet(s) PO daily 201008/12/2011 Inactive Ambien CR 12.5 mg Tab RxNorm: 442017 1 Tablet(s) PO HS PRN 05/0908/30/2011 Inactive Ambien 10 mg Tab RxNorm: 626498 1 Tablet(s) PO QHS 201006/07/2011 Inactive Nexium 40 mg Cap RxNorm: 375536 1 Capsule(s) PO daily 05/0403/12/2012 Inactive the patient had tried pepcid, otc priolosec, RX omperazole, failed them all Bactrim DS 800 mg-160 mg Tab RxNorm: 618260 1 Tablet(s) PO BID 04/19/2011 08/30/2011 Inactive triamcinolone acetonide 40 mg/mL Susp for Injection RxNorm: 0133990 1 Milliliter(s ) Inj UD 04/19/2011 04/19/2011 Inactive aspirin 81 mg Tab, Delayed Release RxNorm: 299019 1 Tablet(s) PO daily No Start Date Active 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 Device RxNorm: Miscellaneous QHS sleep apnea, 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 No Start Date Active Cymbalta 30 mg Cap RxNorm: 352542 1 Capsule(s) PO daily No Start Date 03/12/2012 Inactive Nexium 40 mg Cap RxNorm: 818491 Capsule(s) PO No Start Date 05/03/2011 Inactive Benadryl 25 mg capsule RxNorm: 6230940 1 Capsule(s) PO QHS No Start Date 01/03/2017 Inactive Klor-Con 10 10 mEq tablet,extended release RxNorm: 005257 1 Tablet(s) PO daily No Start Date 03/31/2012 Inactive Metamucil Oral RxNorm : Oral No Start Date 10/12/2014 Inactive amlodipine 10 mg Tab RxNorm: 239435 1 Tablet(s) PO daily No Start Date 10/08/2011 Inactive Norvasc 5 mg tablet RxNorm: 172456 1 Tablet(s) PO daily No Start Date 10/12/2014 Inactive Lasix 40 mg Tab RxNorm : 198732 1 Tablet(s) PO daily No Start Date 12/17/2011 Inactive diltiazem ER (XR/XT) 240 mg capsule,extended release, controlled RxNorm: 172728 1 Capsule(s) PO daily No Start Date Inactive Centrum Silver Ultra Women's oral RxNorm: 47703 oral No Start Date 04/24/2018 Inactive Synthroid 50 mcg Tab RxNorm: 161149 1 Tablet(s) PO daily No Start Date 05/14/2011 Inactive Flagyl 500 mg tablet RxNorm: 476570 1 Tablet(s) PO No Start Date 09/03/2012 Inactive one after each loose bm limit 8 per day Boniva 150 mg Tab RxNorm: 964188 1 Tablet(s) PO UD No Start Date 08/30/2011 Inactive monthly Singulair 10 mg tablet RxNorm: 340613 1 Tablet(s) PO daily No Start Date 06/11/2012 Inactive folic acid Oral RxNorm : Oral No Start Date 03/12/2012 Inactive potassium chloride ER 10 mEq tablet,extended release RxNorm: 978218 1 Tablet(s) PO daily No Start Date 01/03/2017 Inactive Probiotic & Acidophilus oral RxNorm: oral No Start Date 04/24/2018 Inactive Librium 10 mg Cap RxNorm: 451926 Capsule(s) PO UD No Start Date 03/12/2012 Inactive q 12 hours prn Crestor 10 mg tablet RxNorm: 060146 1 Tablet(s) PO daily No Start Date 02/09/2013 Inactive multivitamin Cap RxNorm: 1 Capsule(s) PO daily No Start Date 01/17/2016 Inactive metoprolol succinate ER 100 mg 24 hr Tab RxNorm: 417035 1 Tablet(s) PO daily No Start Date 05/28/2011 Inactive Zithromax Z-Hebert 250 mg tablet RxNorm: 856139 Tablet(s) PO UD No Start Date 12/22/2015 Inactive diltiazem ER 180 mg capsule,extended release RxNorm: 116050 1 Capsule(s) PO daily No Start Date 10/13/2012 Inactive Tekturna 300 mg Tab RxNorm: 6665066 1 Tablet(s) PO daily samples No Start Date 02/11/2012 Inactive Xanax 0.25 mg tablet RxNorm: 700382 1-2 Tablet(s) PO QHS as needed insomnia No Start Date 07/24/2017 Inactive Fish Oil 1,000 mg Cap RxNorm: 1 Capsule(s) PO daily No Start Date 04/24/2018 Inactive ProAir HFA 90 mcg/actuation Aerosol Inhaler RxNorm: 903395 2 INH Q6 PRN No Start Date 04/22/2012 Inactive chlordiazepoxide-clidinium 5 mg-2.5 mg Cap RxNorm: 346290 1 Capsule(s) PO PRN No Start Date 07/09/2011 Inactive q 12 hours prn Butrans 5 mcg/hour Transderm Patch RxNorm: 658677 1 Patch TD weekly No Start Date 05/26/2012 Inactive Lactobacillus acidophilus tablet RxNorm: 4 Tablet(s) PO daily No Start Date 01/03/2017 Inactive Librax (with clidinium) 5 mg-2.5 mg capsule RxNorm: 085754 1 Capsule(s) PO BID No Start Date 04/18/2012 Inactive Nexium 40 mg capsule,delayed release RxNorm: 343577 Capsule(s) PO PRN No Start Date 10/12/2014 Inactive Tylenol Extra Strength 500 mg tablet RxNorm: 205363 1 Tablet(s) PO BID as needed for pain No Start Date 04/24/2018 Inactive Premarin 0.625 mg/gram Vaginal Cream RxNorm: 205470 Gram(s) VAG No Start Date 03/12/2012 Inactive three times a week, small amt to vaginal tissuesample given metoprolol succinate ER 50 mg tablet,extended release 24 hr RxNorm: 023412 1 Tablet(s) PO daily No Start Date 2011 Inactive Zithromax Z-Hebert 250 mg tablet RxNorm: 652614 Tablet(s) PO UD No Start Date 08/13/2014 Inactive albuterol sulfate HFA 90 mcg/actuation aerosol inhaler RxNorm: 0631565 1 or2 Puff( s) INH Q4 PRN No Start Date 05/10/2014 Inactive Xanax 0.25 mg Tab RxNorm: 540944 1/2-1 Tablet(s) PO Q8 PRN No Start Date 03/12/2012 Inactive metoprolol succinate ER 25 mg tablet,extended release 24 hr RxNorm: 451446 1 Tablet(s) PO daily No Start Date 2012 Inactive Zithromax Z-Hebert 250 mg tablet RxNorm: 639785 1 Tablet(s) PO UD No Start Date 08/10/2016 Inactive Z PACK DIRECTED calcium carbonate 600 mg (1,500 mg) Tab RxNorm: 943446 1 Tablet(s) PO BID No Start Date 01/03/2017 Inactive albuterol sulfate HFA 90 mcg/Actuation Aerosol Inhaler RxNorm: 984805 1-2 Puff(s) INH Q4 PRN No Start Date 03/11/2012 Inactive Vitamin D3 2,000 unit capsule RxNorm: 309702 1 Capsule(s) PO daily No Start Date 10/12/2014 Inactive Colace 100 mg Cap RxNorm: 1561581 1 Capsule(s) PO BID No Start Date 01/17/2016 Inactive Neurontin 600 mg tablet RxNorm: 162984 1 Tablet(s) PO Q8 PRN No Start Date 06/09/2013 Inactive Lomotil 2.5 mg-0.025 mg tablet RxNorm: 4026175 1 Tablet(s) PO No Start Date 06/14/2014 Inactive one after each loose bm limit 8 per day Micardis 80 mg Tab RxNorm: 058651 1 Tablet(s) PO daily No Start Date 12/03/2011 Inactive Pyridium 200 mg tablet RxNorm: 5820754 1 Tablet(s) PO Q8 PRN No Start Date 09/10/2012 Inactive Medication Administered Medication Codes Instructions Start Date Status ceftriaxone 500 mg solution for injection RxNorm: 2428342 08/09/2017 No longer Active Kenalog 40 mg/mL suspension for injection RxNorm: 8226301 1Milliliter 08/09/2017 No longer Active Kenalog 40 mg/mL suspension for injection RxNorm: 1138899 1Milliliter 01/04/2017 No longer Active Kenalog 40 mg/mL suspension for injection RxNorm: 0678269 Milliliter 08/23/2016 No longer Active Rocephin 500 mg solution for injection RxNorm: 452821 1Milliliter 05/07/2014 No longer Active Kenalog 40 mg/mL suspension for injection RxNorm: 0987077 Milliliter 12/26/2013 No longer Active Rocephin 500 mg solution for injection RxNorm: 978023 12/26/2013 No longer Active Kenalog 40 mg/mL suspension for injection RxNorm: 2477028 Milliliter 11/12/2013 No longer Active Rocephin 500 mg solution for injection RxNorm: 868413 1Milliliter 10/09/2013 No longer Active Kenalog 40 mg/mL Susp for Injection RxNorm: 2882604 1Milliliter 11/21/2012 No longer Active Rocephin 500 mg Solution for Injection RxNorm: 538694 08/23/2011 No longer Active triamcinolone acetonide 40 mg/mL Susp for Injection RxNorm: 9335386 1MilliliterUD 04/19/2011 No longer Active Immunizations Vaccine [...] Item Item Code Result Date Comp Metabolic Nhs631 NA 139 mEq/L 05/29/2018 Comp Metabolic Clu191 K 4.1 mEq/L 05/29/2018 Comp Metabolic Pwo336 CL 99 mEq/L 05/29/2018 Comp Metabolic Lxg036 CO2 30.0 mEq/L 05/29/2018 Comp Metabolic Qde081 ANION GAP 14 05/29/2018 Comp Metabolic Tzj235 GLUCOSE 107 mg/dL 05/29/2018 Comp Metabolic Ljo249 Creat 0.6 mg/dL 05/29/2018 Comp Metabolic Lbc585 eGFR 95 ml/min/1.73m2 05/29/2018 Comp Metabolic Hho299 BUN 15 mg/dL 05/29/2018 Comp Metabolic Wlj048 B/C Ratio 23.4 Ratio 05/29/2018 Comp Metabolic Jri094 CALCIUM 9.4 mg/dL 05/29/2018 Comp Metabolic Ini659 ALK PHOS 52 U/L 05/29/2018 Comp Metabolic Eqo734 AST(SGOT) 16 U/L 05/29/2018 Comp Metabolic Mjq252 ALT(SGPT) 12 U/L 05/29/2018 Comp Metabolic Tpy884 BILI T 1.1 mg/dL 05/29/2018 Comp Metabolic Rgm182 ALBUMIN 4.0 g/dL 05/29/2018 Comp Metabolic Dju874 TPRO 6.5 g/dL 05/29/2018 Comp Metabolic Yqu303 GLOB 2.5 g/dL 05/29/2018 Comp Metabolic Vuv999 A/G Ratio 1.6 Ratio 05/29/2018 Comp Metabolic Ifb704 Osmo 279 mOsmo 05/29/2018 Cbc With Differential [...] 24.9 % 05/29/2018 Cbc With Differential Ord2 Walsh% 9.0 % 05/29/2018 Cbc With Differential Ord2 [...] 2.05 K/ul 05/29/2018 Cbc With Differential Ord2 Walsh ABS# 0.7 K/ul 05/29/2018 Cbc With Differential Ord2 Eos ABS# 0.2 K/ul 05/29/2018 Cbc With Differential Ord2 Baso ABS# 0.0 K/ul 05/29/2018 Tsh Ord6 TSH (3rd IS) 2.05 uIU/mL 05/29/2018 Lipid Ord30 CHOL 191 mg/dL 05/29/2018 Lipid Ord30 HDL 68.0 mg/dl 05/29/2018 Lipid Ord30 TRIG 138 mg/dL 05/29/2018 Lipid Ord30 LDL 95 mg/dL 05/29/2018 Lipid Ord30 C/HDL 2.8 Ratio 05/29/2018 Free T4 Emk052 FREE T4 0.93 ng/dL 05/29/2018 Free T4 [id number] FREE T4 0.90 ng/dL 09/12/2017 Cbc With [...] 29.3 pg 09/12/2017 Cbc With Differential Ord2 Walsh% 8.7 % 09/12/2017 Cbc With Differential Ord2 Eos% 2.2 % 09/12/2017 Cbc With Differential Ord2 MCHC 30.2 pg 09/12/2017 Cbc With Differential Ord2 Baso% 0.5 % 09/12/2017 Cbc With Differential Ord2 PLT 381 K/ul 09/12/2017 Cbc With Differential Ord2 RDW 14.9 % 09/12/2017 Cbc With Differential Ord2 Neut ABS# 9.11 K/ul 09/12/2017 Cbc With Differential Ord2 Lymph ABS# 2.72 K/ul 09/12/2017 Cbc With Differential Ord2 Walsh ABS# 1.2 K/ul 09/12/2017 Cbc With Differential Ord2 Eos ABS# 0.3 K/ul 09/12/2017 Cbc With Differential Ord2 Baso ABS# 0.1 K/ul 09/12/2017 Comp Metabolic Hik031 NA 140 mEq/L 09/12/2017 Comp Metabolic Dtf669 K 4.3 mEq/L 09/12/2017 Comp Metabolic Cmw892 CL 99 mEq/L 09/12/2017 Comp Metabolic Ifi880 CO2 33.0 mEq/L 09/12/2017 Comp Metabolic Qdm300 ANION GAP 12 09/12/2017 Comp Metabolic Vdc486 GLUCOSE 92 mg/dL 09/12/2017 Comp Metabolic Nwm871 Creat 0.7 mg/dL 09/12/2017 Comp Metabolic Syp981 eGFR 84 ml/min/1.73m2 09/12/2017 Comp Metabolic Sdc270 BUN 18 mg/dL 09/12/2017 Comp Metabolic Qmt273 B/C Ratio 25.4 Ratio 09/12/2017 Comp Metabolic Dig268 CALCIUM 9.3 mg/dL 09/12/2017 Comp Metabolic Jql292 ALK PHOS 64 U/L 09/12/2017 Comp Metabolic Izz506 AST(SGOT) 13 U/L 09/12/2017 Comp Metabolic Kuy913 ALT(SGPT) 12 U/L 09/12/2017 Comp Metabolic Mmy000 BILI T 0.7 mg/dL 09/12/2017 Comp Metabolic Azk771 ALBUMIN 4.0 g/dL 09/12/2017 Comp Metabolic Mjh409 TPRO 6.3 g/dL 09/12/2017 Comp Metabolic Qsn803 GLOB 2.3 g/dL 09/12/2017 Comp Metabolic Wis666 A/G Ratio 1.8 Ratio 09/12/2017 Comp Metabolic Epg763 Osmo 281 mOsmo 09/12/2017 Lipid Ord30 CHOL [...] 28.8 pg 03/09/2016 Cbc With Differential Ord2 Walsh% 8.5 % 03/09/2016 Cbc With Differential Ord2 [...] 2.38 K/ul 03/09/2016 Cbc With Differential Ord2 Walsh ABS# 0.8 K/ul 03/09/2016 Cbc With Differential Ord2 Eos ABS# 0.2 K/ul 03/09/2016 Cbc With Differential Ord2 Baso ABS# 0.1 K/ul 03/09/2016 Comp Metabolic Osq940 NA 138 mEq/L 03/09/2016 Comp Metabolic Ufw302 K 4.5 mEq/L 03/09/2016 Comp Metabolic Nzi327 CL 100 mEq/L 03/09/2016 Comp Metabolic Hcu756 CO2 33.0 mEq/L 03/09/2016 Comp Metabolic Qwk776 ANION GAP 10 03/09/2016 Comp Metabolic Bhr989 GLUCOSE 94 mg/dL 03/09/2016 Comp Metabolic Hnj295 Creat 0.6 mg/dL 03/09/2016 Comp Metabolic Wrh334 eGFR 106 ml/min/1.73m2 03/09/2016 Comp Metabolic Mbb779 BUN 10 mg/dL 03/09/2016 Comp Metabolic Gkc390 B/C Ratio 17.2 Ratio 03/09/2016 Comp Metabolic Iyl546 CALCIUM 9.2 mg/dL 03/09/2016 Comp Metabolic Gin718 ALK PHOS 64 U/L 03/09/2016 Comp Metabolic Igx517 AST(SGOT) 20 U/L 03/09/2016 Comp Metabolic Uox957 ALT(SGPT) 11 U/L 03/09/2016 Comp Metabolic Gpf745 BILI T 0.9 mg/dL 03/09/2016 Comp Metabolic Sba053 ALBUMIN 4.0 g/dL 03/09/2016 Comp Metabolic Sut065 TPRO 6.1 g/dL 03/09/2016 Comp Metabolic Ntr242 GLOB 2.1 g/dL 03/09/2016 Comp Metabolic Odr237 A/G Ratio 1.9 Ratio 03/09/2016 Comp Metabolic Xce703 Osmo 274 mOsmo 03/09/2016 Free T4 Suf979 FREE T4 0.90 ng/dL 03/09/2016 Lipid Ord30 [...] hTSH II 3.25 uIU/mL 09/07/2015 Free T4 Osk735 FREE T4 0.79 ng/dL 09/07/2015 Comp Metabolic Iyc384 NA 137 mEq/L 09/07/2015 Comp Metabolic Yiu293 K 4.0 mEq/L 09/07/2015 Comp Metabolic Nxa721 CL 98 mEq/L 09/07/2015 Comp Metabolic Slt377 CO2 30.0 mEq/L 09/07/2015 Comp Metabolic Jgl129 ANION GAP 13 09/07/2015 Comp Metabolic Qvr037 GLUCOSE 101 mg/dL 09/07/2015 Comp Metabolic Dtw710 Creat 0.6 mg/dL 09/07/2015 Comp Metabolic Mnu396 eGFR 111 ml/min/1.73m2 09/07/2015 Comp Metabolic Kyg062 BUN 16 mg/dL 09/07/2015 Comp Metabolic Zlt263 B/C Ratio 28.6 Ratio 09/07/2015 Comp Metabolic Ryv840 CALCIUM 9.4 mg/dL 09/07/2015 Comp Metabolic Olj828 ALK PHOS 68 U/L 09/07/2015 Comp Metabolic Ara112 AST(SGOT) 16 U/L 09/07/2015 Comp Metabolic Xqb712 ALT(SGPT) 12 U/L 09/07/2015 Comp Metabolic Eld416 BILI T 0.9 mg/dL 09/07/2015 Comp Metabolic Ghk239 ALBUMIN 4.1 g/dL 09/07/2015 Comp Metabolic Emw260 TPRO 6.5 g/dL 09/07/2015 Comp Metabolic Tmp780 GLOB 2.4 g/dL 09/07/2015 Comp Metabolic Vtm398 A/G Ratio 1.7 Ratio 09/07/2015 Comp Metabolic Kdm581 Osmo 275 mOsmo 09/07/2015 Cbc With Differential [...] Differential Ord2 RDW 14.4 % 09/07/2015 TSH 9970642 TSH 0.920 uIU/ML 08/28/2014 CBC 9899945 WBC 12.5 10e9/L 08/28/2014 CBC 1856019 RBC 3.44 10e12/L 08/28/2014 CBC 7444038 HGB 10.3 g/dL 08/28/2014 CBC 3667192 HCT DET 33.9 % 08/28/2014 CBC 6934100 MCV 98.5 fL 08/28/2014 CBC 4873123 MCH 29.9 pg 08/28/2014 CBC 4953829 MCHC 30.4 g/dL 08/28/2014 CBC 4997468 PLT 412 10e9/L 08/28/2014 CBC 8207277 MPV 10.2 fL 08/28/2014 CBC 4423283 NNEKA % 68.5 % 08/28/2014 CBC 2700503 LY % 20.8 % 08/28/2014 CBC 3008022 MON % 9.9 % 08/28/2014 CBC 5352840 EOS % 0.6 % 08/28/2014 CBC 6063539 BASO % 0.2 % 08/28/2014 CBC 0385094 RDW 15.8 % 08/28/2014 CBC 1151048 ABS NNEKA 8.56 10e9/L 08/28/2014 CBC 0498562 ABS LYMPH 2.60 10e9/L 08/28/2014 CBC 9126515 ABS MONO 1.24 10e9/L 08/28/2014 CBC 1896924 ABS EOS 0.08 10e9/L 08/28/2014 CBC 1874345 ABS BASO 0.03 10e9/L 08/28/2014 CBC 8538206 RDW-SD 55.4 fL 08/28/2014 GFR CALC 8261506 GFR AA >60 ML/MIN 08/28/2014 GFR CALC 7668949 GFR NON-AA >60 ML/MIN 08/28/2014 LIPID GRP 1803265 HDL TEST 69 MG/DL 08/28/2014 LIPID GRP 7296929 TRIG 158 MG/DL 08/28/2014 LIPID GRP 6969056 TEST LDL 96 MG/DL 08/28/2014 LIPID GRP 9269216 CHOL 197 MG/DL 08/28/2014 LIPID GRP 1671125 RCHOL/HDL 2.86 RATIO 08/28/2014 LIPID GRP NON-HDL CH 128 MG/DL 08/28/2014 CHEM 14 8235034 AST 14 U/L 08/28/2014 CHEM 14 8462924 ALT 13 IU/L 08/28/2014 CHEM 14 9422704 BUN 15 MG/DL 08/28/2014 CHEM 14 0404323 ALBUMIN 4.2 GM/DL 08/28/2014 CHEM 14 4130924 CHLORIDE 98 MMOL/L 08/28/2014 CHEM 14 9962910 BILI TOT 1.2 MG/DL 08/28/2014 CHEM 14 5125989 ALK PHOS 68 U/L 08/28/2014 CHEM 14 4597649 SODIUM 137 MMOL/L 08/28/2014 CHEM 14 2743935 CREATININE 0.68 MG/DL 08/28/2014 CHEM 14 5488785 CALCIUM 9.1 MG/DL 08/28/2014 CHEM 14 4730593 POTASSIUM 3.7 MMOL/L 08/28/2014 CHEM 14 4204088 PROT TOT 6.2 GM/DL 08/28/2014 CHEM 14 2622633 GLUCOSE 91 MG/DL 08/28/2014 CHEM 14 4129286 BICARB 31 MMOL/L 08/28/2014 CHEM 14 4056231 ANION GAP 8 MEQ/L 08/28/2014 FREE T4 5342913 FREE T4 1.44 NG/DL 08/28/2014 LIPID GRP HDL TEST 73 MG/DL 04/16/2014 LIPID GRP TRIG 131 MG/DL 04/16/2014 LIPID GRP TEST LDL 99 MG/DL 04/16/2014 LIPID GRP 2881374 CHOL 198 MG/DL 04/16/2014 LIPID GRP 3362168 RCHOL/HDL 2.71 RATIO 04/16/2014 LIPID GRP 1046501 NON-HDL CH 125 MG/DL 04/16/2014 CHEM 14 6031372 AST 17 U/L 04/14/2014 CHEM 14 3299162 ALT 17 IU/L 04/14/2014 CHEM 14 6111614 BUN 15 MG/DL 04/14/2014 CHEM 14 0784790 ALBUMIN 4.3 GM/DL 04/14/2014 CHEM 14 6802086 CHLORIDE 96 MMOL/L 04/14/2014 CHEM 14 3042204 BILI TOT 0.9 MG/DL 04/14/2014 CHEM 14 7310400 ALK PHOS 65 U/L 04/14/2014 CHEM 14 8558482 SODIUM 135 MMOL/L 04/14/2014 CHEM 14 6568731 CREATININE 0.69 MG/DL 04/14/2014 CHEM 14 7401548 CALCIUM 9.5 MG/DL 04/14/2014 CHEM 14 6508925 POTASSIUM 4.1 MMOL/L 04/14/2014 CHEM 14 9796062 PROT TOT 6.6 GM/DL 04/14/2014 CHEM 14 9222878 GLUCOSE 104 MG/DL 04/14/2014 CHEM 14 7354555 BICARB 34 MMOL/L 04/14/2014 CHEM 14 9245690 ANION GAP 5 MEQ/L 04/14/2014 A1C HPLC 2374895 A1C HPLC 06643-0 5.0 % 04/14/2014 TSH 1449236 TSH 2.140 uIU/ML 04/14/2014 FREE T4 1162629 FREE T4 1.56 NG/DL 04/14/2014 GFR CALC 7581210 GFR AA >60 ML/MIN 04/14/2014 GFR CALC 8061396 GFR NON-AA >60 ML/MIN 04/14/2014 CBC 5101326 WBC 12.8 10e9/L 04/14/2014 CBC 9725002 RBC 4.44 10e12/L 04/14/2014 CBC 6159818 HGB 13.2 g/dL 04/14/2014 CBC 0799361 HCT DET 41.4 % 04/14/2014 CBC 8449587 MCV 93.2 fL 04/14/2014 CBC 7502302 MCH 29.7 pg 04/14/2014 CBC 9755831 MCHC 31.9 g/dL 04/14/2014 CBC 5534514 PLT 383 10e9/L 04/14/2014 CBC 5813794 MPV 10.1 fL 04/14/2014 CBC 5225356 NNEKA % 65.5 % 04/14/2014 CBC 0333384 LY % 23.0 % 04/14/2014 CBC 3502446 MON % 9.9 % 04/14/2014 CBC 8526209 EOS % 1.3 % 04/14/2014 CBC 9213427 BASO % 0.3 % 04/14/2014 CBC 5627163 RDW 13.7 % 04/14/2014 CBC 9485235 ABS NNEKA 8.38 10e9/L 04/14/2014 CBC 9886097 ABS LYMPH 2.94 10e9/L 04/14/2014 CBC 7302288 ABS MONO 1.27 10e9/L 04/14/2014 CBC 0229290 ABS EOS 0.17 10e9/L 04/14/2014 CBC 6438465 ABS BASO 0.04 10e9/L 04/14/2014 CBC 1417428 RDW-SD 45.9 fL 04/14/2014 A1C HPLC 9962270 A1C HPLC 21387-3 4.9 % 11/13/2013 CHEM 14 6011211 AST 15 U/L 11/12/2013 CHEM 14 3518345 ALT 14 IU/L 11/12/2013 CHEM 14 5003739 BUN 14 MG/DL 11/12/2013 CHEM 14 5323649 ALBUMIN 4.3 GM/DL 11/12/2013 CHEM 14 0098039 CHLORIDE 101 MMOL/L 11/12/2013 CHEM 14 5682469 BILI TOT 0.9 MG/DL 11/12/2013 CHEM 14 8057742 ALK PHOS 67 U/L 11/12/2013 CHEM 14 7206351 SODIUM 139 MMOL/L 11/12/2013 CHEM 14 5171749 CREATININE 0.67 MG/DL 11/12/2013 CHEM 14 8270049 CALCIUM 9.5 MG/DL 11/12/2013 CHEM 14 4775880 POTASSIUM 4.1 MMOL/L 11/12/2013 CHEM 14 4445763 PROT TOT 6.5 GM/DL 11/12/2013 CHEM 14 2605446 GLUCOSE 102 MG/DL 11/12/2013 CHEM 14 9990853 BICARB 30 MMOL/L 11/12/2013 CHEM 14 7124411 ANION GAP 8 MEQ/L 11/12/2013 GFR CALC 2774716 GFR AA >60 ML/MIN 11/12/2013 GFR CALC 6635059 GFR NON-AA >60 ML/MIN 11/12/2013 TSH 8741822 TSH 2.445 uIU/ML 11/12/2013 FREE T4 4951240 FREE T4 1.09 NG/DL 11/12/2013 CBC 0807845 WBC 7.6 10e9/L 11/12/2013 CBC 5820502 RBC 4.42 10e12/L 11/12/2013 CBC 8149744 HGB 13.1 g/dL 11/12/2013 CBC 1440276 HCT DET 41.2 % 11/12/2013 CBC 1393249 MCV 93.2 fL 11/12/2013 CBC 4326708 MCH 29.6 pg 11/12/2013 CBC 7560338 MCHC 31.8 g/dL 11/12/2013 CBC 8825432 PLT 314 10e9/L 11/12/2013 CBC 7948697 MPV 10.4 fL 11/12/2013 CBC 3502140 NNEKA % 59.8 % 11/12/2013 CBC 4573196 LY % 28.1 % 11/12/2013 CBC 6225424 MON % 9.5 % 11/12/2013 CBC 3072932 EOS % 1.8 % 11/12/2013 CBC 5125325 BASO % 0.8 % 11/12/2013 CBC 0435594 RDW 13.8 % 11/12/2013 CBC 6340228 ABS NNEKA 4.54 10e9/L 11/12/2013 CBC 6765188 ABS LYMPH 2.14 10e9/L 11/12/2013 CBC 4102766 ABS MONO 0.72 10e9/L 11/12/2013 CBC 5854223 ABS EOS 0.14 10e9/L 11/12/2013 CBC 4056932 ABS BASO 0.06 10e9/L 11/12/2013 CBC 9027381 RDW-SD 46.0 fL 11/12/2013 LIPID GRP HDL TEST 66 MG/DL 11/12/2013 LIPID GRP TRIG 130 MG/DL 11/12/2013 LIPID GRP TEST LDL 108 MG/DL 11/12/2013 LIPID GRP CHOL 200 MG/DL 11/12/2013 LIPID GRP RCHOL/HDL 3.03 RATIO 11/12/2013 HS ENE ZOS 2603335 HS ENE ZOS IMMUNE 04/04/2013 A1C 3069696 A1C HPLC 75285-4 5.2 % 04/03/2013 GFR CALC 8038597 GFR AA >60 ML/MIN 03/31/2013 GFR CALC 2952133 GFR NON-AA >60 ML/MIN 03/31/2013 TSH 6456325 TSH 2.689 uIU/ML 03/31/2013 LIPID GRP HDL TEST 63 MG/DL 03/31/2013 LIPID GRP TRIG 157 MG/DL 03/31/2013 LIPID GRP TEST LDL 98 MG/DL 03/31/2013 LIPID GRP CHOL 192 MG/DL 03/31/2013 LIPID GRP 8467054 RCHOL/HDL 3.05 RATIO 03/31/2013 FREE T4 7221365 FREE T4 1.19 NG/DL 03/31/2013 CHEM 14 1061044 AST 16 U/L 03/31/2013 CHEM 14 3440648 ALT 12 IU/L 03/31/2013 CHEM 14 4243563 BUN 17 MG/DL 03/31/2013 CHEM 14 5408044 ALBUMIN 4.5 GM/DL 03/31/2013 CHEM 14 2257081 CHLORIDE 98 MMOL/L 03/31/2013 CHEM 14 7531489 BILI TOT 0.7 MG/DL 03/31/2013 CHEM 14 7579093 ALK PHOS 53 U/L 03/31/2013 CHEM 14 1390439 SODIUM 137 MMOL/L 03/31/2013 CHEM 14 5290458 CREATININE 0.66 MG/DL 03/31/2013 CHEM 14 6695769 CALCIUM 9.6 MG/DL 03/31/2013 CHEM 14 8069230 POTASSIUM 4.2 MMOL/L 03/31/2013 CHEM 14 8012388 PROT TOT 6.7 GM/DL 03/31/2013 CHEM 14 0734758 GLUCOSE 101 MG/DL 03/31/2013 CHEM 14 0661430 BICARB 33 MMOL/L 03/31/2013 CHEM 14 5810800 ANION GAP 6 MEQ/L 03/31/2013 CBC 5681732 WBC 7.5 10e9/L 03/31/2013 CBC 2867799 RBC 4.39 10e12/L 03/31/2013 CBC 9916182 HGB 13.0 g/dL 03/31/2013 CBC 3661024 HCT DET 40.2 % 03/31/2013 CBC 7233377 MCV 91.6 fL 03/31/2013 CBC 4685567 MCH 29.6 pg 03/31/2013 CBC 8168808 MCHC 32.3 g/dL 03/31/2013 CBC 3229737 PLT 305 10e9/L 03/31/2013 CBC 5815394 MPV 10.4 fL 03/31/2013 CBC 1529544 NNEKA % 56.8 % 03/31/2013 CBC 6865911 LY % 30.3 % 03/31/2013 CBC 1570295 MON % 9.8 % 03/31/2013 CBC 9048656 EOS % 2.3 % 03/31/2013 CBC 3195851 BASO % 0.8 % 03/31/2013 CBC 4660768 RDW 13.2 % 03/31/2013 CBC 3411995 ABS NNEKA 4.26 10e9/L 03/31/2013 CBC 3767708 ABS LYMPH 2.27 10e9/L 03/31/2013 CBC 6999980 ABS MONO 0.74 10e9/L 03/31/2013 CBC 2878519 ABS EOS 0.17 10e9/L 03/31/2013 CBC 5642387 ABS BASO 0.06 10e9/L 03/31/2013 CBC 0512916 RDW-SD 43.2 fL 03/31/2013 LIPID GRP HDL TEST 49 MG/DL 09/11/2012 LIPID GRP TRIG 134 MG/DL 09/11/2012 LIPID GRP TEST LDL 81 MG/DL 09/11/2012 LIPID GRP CHOL 157 MG/DL 09/11/2012 LIPID GRP RCHOL/HDL 3.20 RATIO 09/11/2012 TSH 4875190 TSH 2.118 uIU/ML 09/11/2012 CBC 5518227 WBC 7.5 10e9/L 09/11/2012 CBC 8127662 RBC 3.99 10e12/L 09/11/2012 CBC 0528783 HGB 11.7 g/dL 09/11/2012 CBC 0490249 HCT DET 37.7 % 09/11/2012 CBC 9228863 MCV 94.5 fL 09/11/2012 CBC 8502783 MCH 29.3 pg 09/11/2012 CBC 8372650 MCHC 31.0 g/dL 09/11/2012 CBC 9528506 PLT 384 10e9/L 09/11/2012 CBC 1755760 MPV 11.0 fL 09/11/2012 CBC 2016652 NNEKA % 51.7 % 09/11/2012 CBC 8164446 LY % 35.2 % 09/11/2012 CBC 3797220 MON % 10.4 % 09/11/2012 CBC 4565063 EOS % 2.3 % 09/11/2012 CBC 6203930 BASO % 0.4 % 09/11/2012 CBC 0219575 RDW 14.2 % 09/11/2012 CBC 8972819 ABS NNEKA 3.88 10e9/L 09/11/2012 CBC 8433585 ABS LYMPH 2.64 10e9/L 09/11/2012 CBC 5308485 ABS MONO 0.78 10e9/L 09/11/2012 CBC 4127053 ABS EOS 0.17 10e9/L 09/11/2012 CBC 8788661 ABS BASO 0.03 10e9/L 09/11/2012 CBC 8315065 RDW-SD 47.1 fL 09/11/2012 CHEM 14 6457242 AST 16 U/L 09/11/2012 CHEM 14 0145856 ALT 15 IU/L 09/11/2012 CHEM 14 9869471 BUN 11 MG/DL 09/11/2012 CHEM 14 2911959 ALBUMIN 4.2 GM/DL 09/11/2012 CHEM 14 5039711 CHLORIDE 101 MMOL/L 09/11/2012 CHEM 14 7439364 BILI TOT 0.8 MG/DL 09/11/2012 CHEM 14 2736864 ALK PHOS 57 U/L 09/11/2012 CHEM 14 4535957 SODIUM 141 MMOL/L 09/11/2012 CHEM 14 9528226 CREATININE 0.62 MG/DL 09/11/2012 CHEM 14 3339034 CALCIUM 9.5 MG/DL 09/11/2012 CHEM 14 6073798 POTASSIUM 4.7 MMOL/L 09/11/2012 CHEM 14 2249504 PROT TOT 6.6 GM/DL 09/11/2012 CHEM 14 6387639 GLUCOSE 90 MG/DL 09/11/2012 CHEM 14 6119499 BICARB 32 MMOL/L 09/11/2012 CHEM 14 2708745 ANION GAP 8 MEQ/L 09/11/2012 A1C HPLC 7180098 A1C HPLC 68733-3 4.5 % 09/11/2012 GFR CALC 3918153 GFR AA >60 ML/MIN 09/11/2012 GFR CALC 7765941 GFR NON-AA >60 ML/MIN 09/11/2012 FREE T4 5701057 FREE T4 1.30 NG/DL 09/11/2012 BMP 0135454 GLUCOSE 93 MG/DL 04/16/2012 BMP 4681716 CREATININE 0.64 MG/DL 04/16/2012 BMP 5132315 BUN 12 MG/DL 04/16/2012 BMP 8264956 SODIUM 139 MMOL/L 04/16/2012 BMP 6656377 POTASSIUM 4.1 MMOL/L 04/16/2012 BMP 1897332 CHLORIDE 99 MMOL/L 04/16/2012 BMP 2581781 BICARB 32 MMOL/L 04/16/2012 BMP ANION GAP 8 MEQ/L 04/16/2012 BMP 4319698 CALCIUM 9.8 MG/DL 04/16/2012 CBC 9946683 WBC 8.5 10e9/L 04/16/2012 CBC 9573808 RBC 3.98 10e12/L 04/16/2012 CBC 1137170 HGB 11.5 g/dL 04/16/2012 CBC 9926183 HCT DET 36.7 % 04/16/2012 CBC 5561987 MCV 92.2 fL 04/16/2012 CBC 1283395 MCH 28.9 pg 04/16/2012 CBC 8357922 MCHC 31.3 g/dL 04/16/2012 CBC 1261142 PLT 321 10e9/L 04/16/2012 CBC 9030191 MPV 10.2 fL 04/16/2012 CBC 0807264 NNEKA % 64.3 % 04/16/2012 CBC 3437637 LY % 24.3 % 04/16/2012 CBC 7192192 MON % 9.0 % 04/16/2012 CBC 7559631 EOS % 1.9 % 04/16/2012 CBC 2062475 BASO % 0.5 % 04/16/2012 CBC 9929310 RDW 13.7 % 04/16/2012 CBC 5766184 ABS NNEKA 5.47 10e9/L 04/16/2012 CBC 0252176 ABS LYMPH 2.07 10e9/L 04/16/2012 CBC 3076098 ABS MONO 0.77 10e9/L 04/16/2012 CBC 1611394 ABS EOS 0.16 10e9/L 04/16/2012 CBC 1391573 ABS BASO 0.04 10e9/L 04/16/2012 CBC 0482965 RDW-SD 44.6 fL 04/16/2012 GFR CALC 1339235 GFR AA >60 ML/MIN 04/16/2012 GFR CALC 8406099 GFR NON-AA >60 ML/MIN 04/16/2012 URINALYSIS NONAUTO W/O SCOPE 14972 [place] 1.015 DateTime(Free Text in Aprima) URINALYSIS NONAUTO W/O SCOPE 93228 PH 6.0 DateTime(Free Text in Aprima) URINALYSIS NONAUTO W/O SCOPE 68665 GLUCOSE neg DateTime( Free Text in Aprima) URINALYSIS NONAUTO W/O SCOPE 04818 Protein neg DateTime( Free Text in Aprima) URINALYSIS NONAUTO W/O SCOPE 17170 Blood 1+ DateTime(Free Text in Aprima) URINALYSIS NONAUTO W/O SCOPE 52060 Bilirubin neg DateTime(Free Text in Aprima) URINALYSIS NONAUTO W/O SCOPE 60703 Ketones neg DateTime( Free Text in Aprima) URINALYSIS NONAUTO W/O SCOPE 34476 Urobilinogen neg DateTime(Free Text in Aprima) URINALYSIS NONAUTO W/O SCOPE 38732 Nitrite positive DateTime(Free Text in Aprima) URINALYSIS NONAUTO W/O SCOPE 16906 Leukocytes 1+ DateTime(Free Text in Aprima) UA 35962 [place] 1.015 DateTime(Free Text in Aprima ) UA 01222 PH 5 DateTime(Free Text in Aprima) UA 50839 GLUCOSE neg DateTime(Free Text in Aprima) UA 77800 Protein neg DateTime(Free Text in Aprima) UA 20439 Blood neg DateTime(Free Text in Aprima) UA 30985 Bilirubin neg DateTime(Free Text in Aprima) UA 41338 Ketones neg DateTime(Free Text in Aprima) UA 48938 Urobilinogen neg DateTime(Free Text in Aprima) UA 80751 Nitrite neg DateTime(Free Text in Aprima) UA 21790 Leukocytes neg DateTime(Free Text in Aprima) URINALYSIS NONAUTO W/O SCOPE 63443 [place] 1.010 DateTime(Free Text in Aprima) URINALYSIS NONAUTO W/O SCOPE 02335 PH 5.0 DateTime(Free Text in Aprima) URINALYSIS NONAUTO W/O SCOPE 53594 GLUCOSE NEG DateTime( Free Text in Apr[employer]) URINALYSIS NONAUTO W/O SCOPE 89363 Protein NEG DateTime( Free Text in Aprima) URINALYSIS NONAUTO W/O SCOPE 87516 Blood NEG DateTime(Free Text in Aprima) URINALYSIS NONAUTO W/O SCOPE 35281 Bilirubin NEG DateTime(Free Text in Aprima) URINALYSIS NONAUTO W/O SCOPE 59304 Ketones NEG DateTime( Free Text in Aprima) URINALYSIS NONAUTO W/O SCOPE 72525 Urobilinogen NEG DateTime(Free Text in Aprima) URINALYSIS NONAUTO W/O SCOPE 70606 Nitrite NEG DateTime( Free Text in Aprima) URINALYSIS NONAUTO W/O SCOPE 40062 Leukocytes ++ DateTime(Free Text in Aprima) URINALYSIS NONAUTO W/O SCOPE 60408 [place] 1.010 DateTime(Free Text in Aprima) URINALYSIS NONAUTO W/O SCOPE 71623 PH 6.0 DateTime(Free Text in Aprima) URINALYSIS NONAUTO W/O SCOPE 49375 GLUCOSE NEG DateTime( Free Text in Aprima) URINALYSIS NONAUTO W/O SCOPE 27829 Protein NEG DateTime( Free Text in Aprima) URINALYSIS NONAUTO W/O SCOPE 48319 Blood NEG DateTime(Free Text in Aprima) URINALYSIS NONAUTO W/O SCOPE 38549 Bilirubin NEG DateTime(Free Text in Aprima) URINALYSIS NONAUTO W/O SCOPE 21886 Ketones NEG DateTime( Free Text in Aprima) URINALYSIS NONAUTO W/O SCOPE 81139 Urobilinogen NEG DateTime(Free Text in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 Visit Plan: Wound Instructions - [...] removal process. 02/06/2018 Appointment: Hayley London WPtel: [address] [place], [place] [address] (15 min) Moderate 02/06/2018 Patient Education: Patient [...] to medications. 01/23/2018 Appointment: Concepción Flanagan WPtel: [phone] [facility] (15 min) Moderate 01/23/2018 Patient Education: Patient Medication Summary Completed 01/23/2018 Visit Plan: Cough - improved - sinusitis resolved. 09/26/2017 Appointment: Concepción Flanagan WPtel: [phone] [facility] [place] (15 min) Moderate 09/26/2017 Patient Education: Patient Medication Summary Completed 09/26/2017 Visit Plan: Acute Maxillary Sinusitis - if not improving - pt would like to see an ENT - H[facility] Tompkins in [place]. Treatment as follows: cefdinir - antibiotic twice [...] refilled hydrocodone. 09/12/2017 Appointment: Concepción Flanagan WPtel: [phone] [facility] [place] (15 min) Moderate 09/12/2017 Patient Education: Patient [...] allergy spray. 08/31/2017 Appointment: Hay[facility] London [phone] (30 min) Complex 08/31/2017 Patient Education: Patient Medication Summary Completed 08/31/2017 Visit Plan: URI - Pt advised to increase fluids, vitamin C. Discussed natural and expected course of this diagnosis and need to alert me if symptoms do not follow expected course, or if any worse. RX sent to patient' s pharmacy. 08/09/2017 Appointment: Chaparrita Arrieta [facility]Ptel[phone] [phone] (30 min) Complex 08/09/2017 Patient Education: [...] hydrocodone. 05/07/2017 Appointment: [phone] (15 min) Moderate 05/07/2017 Patient Education: Patient [...] care surrogate. 04/12/2017 Appointment: Hayley London [facility]Ptel[phone] [facility] [facility] - Annual Wellness Visit 04/12/2017 Patient Education: Patient Medication Summary Completed 04/12/2017 Appointment: Nurse Visit 02/15/2017 Patient Education: Patient Medication Summary Completed 02/15/2017 Visit Plan: Xwhef-lkloqhvuds-swjpr zpack when finished with cipro-follow up chest [...] day-follow up Sunday02/02/2017 Appointment: Chaparrita Arrieta WPtel: [address] [place], [place] [phone] (15 min) Moderate 02/02/2017 Patient Education: Patient Medication Summary Completed 02/02/2017 Patient Education: Obesity Completed 02/02/2017 Visit Plan: Sinusitis - Pt has acute infection - pain in face, maxillary region, Pt informed to use decongestant, RX given to patient, sinus rinses also recommended. Call if symptoms do not show improvement. 01/15/2017 Appointment: Chaparrita Arrieta WPtel: [phone] (10 min) Simple 01/15/2017 Patient Education: [...] today 01/04/2017 Appointment: Concepción Flanagan WPtel[phone] (15 min) Moderate 01/04/2017 Patient Education: Patient [...] (lexapro). 09/07/2016 Appointment: Concepción Flanagan WPtel[phone] (30 min) Complex 09/07/2016 Patient Education: Patient [...] home. 07/06/2016 Appointment: Concepción Flanagan WPtel[phone] [facility] (15 min) Moderate 07/06/2016 Patient Education: Patient [...] DAILY 06/08/2016 Appointment: Concepción Flanagan WPtel[phone] [facility] (15 min) Moderate 06/08/2016 Patient Education: Patient [...] edema. 04/06/2016 Appointment: Concepción Flanagan WPtel[phone] (15 min) Moderate 04/06/2016 Patient Education: Patient [...] for Mikala. 01/18/2016 Appointment: Concepción Flanagan WPtel: [address] [place], [place] [address] (15 min) Moderate 01/18/2016 Patient Education: Patient [...] fatigue improved-will fax today's note to [employer] for re-certification of oxygen. 09/09/2015 Visit Plan: [...] daytime fatigue improved-will fax today's note to [employer] for re-certification of oxygen. 09/09/2015 Appointment: (15 [...] discuss with her son who is a Office Equipment Mechanic - and consider re-evaluation for nasal pillows with her cpap since she could not tolerate a face mask cpap in the past. 12/25/2014 Appointment: Concepción Flanagan WPtel: [phone] [facility] Follow up 12/25/2014 Patient Education: Patient Medication [...] at home. 10/13/2014 Appointment: Concepción Flanagan WPtel: [phone] [facility] Follow up 10/13/2014 Patient Education: Patient Medication [...] her . 08/28/2014 Appointment: Concepción Flanagan WPtel: [phone] [facility] Follow up 08/28/2014 Patient Education: Patient Medication [...] creatinine. 04/16/2014 Appointment: Concepción Flanagan [facility]Ptel[phone] Follow up 04/16/2014 Patient Education: Patient Medication Summary Completed 04/16/2014 Patient Education: Patient Medication Summary Completed 04/14/2014 Patient Education: Hypertension Completed 04/14/2014 Visit Plan: Wound Instructions - Pt was instruced to keep the wound clean, wash with antibacterial soap, use triple antibiotic ointment, call if redness, pustular drainage, or any other acute conerns. 01/27/2014 Appointment: Concepción Flanagan WPtel[phone] [facility] [facility] Procedure 01/27/2014 Patient Education: Patient Medication [...] home eval. 01/21/2014 Appointment: Concepción Flanagan WPtel: [address] [place] [address] Follow up 01/21/2014 Patient Education: Patient Medication Summary Completed 01/21/2014 Patient Education: Hypertension Completed 01/21/2014 Visit Plan: Hypotension - Bradycardia - pt to stop her metroprolol - check bp and heart rate twice daily and monitor symptoms. Call if bp uncontrolled- or heart rate to elevated. 01/07/2014 Appointment: Concepción Flanagan WPtel: [address] [place] [address] Follow up 01/07/2014 Patient Education: Hypertension Completed [...] and swallow 11/12/2013 Appointment: Chaparrita Arrieta WPtel: [phone] Sick 11/12/2013 Patient Education: Patient Medication Summary Completed 11/12/2013 Patient Education: Hypertension Completed 11/12/2013 Visit Plan: Sinusitis - Pt has acute infection - pain in face, maxillary region, Pt informed to use decongestant, RX given to patient, sinus rinses also recommended. Call if symptoms do not show improvement. 10/09/2013 Appointment: Chaparrita Arrieta WPtel[phone] [phone] Sick 10/09/2013 Patient Education: Patient Medication Summary [...] check UA 04/03/2013 Appointment: Concepción Flanagan WPtel: [facility] Follow up 04/03/2013 Patient Education: Patient Medication Summary Completed 04/03/2013 Patient Education: Hypertension Completed 04/03/2013 Patient Education: Patient Medication Summary Completed 03/31/2013 Patient Education: Hypertension Completed 03/31/2013 Visit Plan: ua performed - sent for culture if indicated. 03/21/2013 Appointment: Concepción Flanagan WPtel: [facility] Lab Draw 03/21/2013 Patient Education: Patient [...] peripheral edema. 01/06/2013 Appointment: Concepción Flanagan WPtel: [facility] Follow up 01/06/2013 Patient Education: Patient Medication Summary Completed 01/06/2013 Patient Education: Hypertension Completed 01/06/2013 Visit Plan: Mvglamygv-Vxureb-ahsccdef not well controlled- KENALOG injection today in [...] edema. 10/28/2012 Appointment: Concepción Flanagan [facility]Ptel[phone] Follow up 10/28/2012 Patient Education: Patient Medication [...] treatment recommendations. 09/30/2012 Appointment: Concepción Flanagan WPtel: [phone] [facility] Follow up 09/30/2012 Patient Education: Patient Medication Summary Completed 09/30/2012 Patient Education: Hypertension Completed 09/30/2012 Appointment: Concepción Flanagan WPtel: [phone] [facility] Lab Draw 09/11/2012 Patient Education: Patient Medication [...] - resolved 08/14/2012 Appointment: Concepción Flanagan WPtel: [facility] Follow up 08/14/2012 Patient Education: Patient Medication Summary Completed 08/14/2012 Patient Education: Hypertension Completed 08/14/2012 Visit Plan: Cellulitis - start with generic Bactrim DS as directed, return to clinic as previously directed, call for acute change in symptoms, worsening redness, warmth, discharge. 08/05/2012 Appointment: Concepción Flanagan WPtel[phone] Follow up 08/05/2012 Patient Education: Patient Medication [...] soften stools. 07/15/2012 Appointment: Concepción Flanagan WPtel: [phone] [facility] [facility] follow up 07/15/2012 Patient Education: Patient Medication Summary Completed 07/15/2012 Patient Education: Hypertension Completed 07/15/2012 Visit Plan: Subungual discoloratiion of toenail- June 10 pt is to see Dr[address] Bee - I have discussed the case with the pt and Dr. bee and she will likely have a biopsy of the digit and avulsion of the nail. 05/27/2012 Appointment: Concepción Flanagan WPtel: [facility] Other 05/27/2012 Patient Education: Patient Medication Summary Completed 05/27/2012 Appointment: Chaparrita Arrieta WPtel: [phone] Follow up 05/16/2012 Visit Plan: Obesity - [...] Influenza vaccine 05/03/2012 Appointment: Chaparrita Arrieta WPtel: [phone] Follow up 05/03/2012 Patient Education: Patient Medication Summary Completed 05/03/2012 Visit Plan: Wound Instructions - Pt was instruced to keep the wound clean, wash with antibacterial soap, use triple antibiotic ointment, call if redness, pustular drainage, or any other acute conerns. 04/23/2012 Appointment: Concepción Flanagan WPtel: [facility] Surgical Procedure 04/23/2012 Patient Education: Patient Medication Summary Completed 04/23/2012 Appointment: Concepción Flanagan WPtel: [phone] [facility] Lab Draw 04/16/2012 Patient Education: Patient Medication [...] readings at home. Recommend follow up with millroom supervisor for clearance before knee surgery. Will get [...] thighs. 03/25/2012 Appointment: Concepción Flanagan WPtel: [phone] [facility] Other 03/25/2012 Patient Education: Patient Medication Summary [...] of lesion. 03/12/2012 Appointment: Chaparrita Arrieta WPtel: [phone] [phone] Other 03/12/2012 Patient Education: Patient Medication Summary [...] at home. 01/23/2012 Appointment: Concepción Flanagan WPtel: [phone] Other 01/23/2012 Patient Education: Patient Medication Summary Completed 01/23/2012 Patient Education: High Blood Pressure: Essential Hypertension Completed 2011 Visit Plan: Breast lqvx-wrnw-gqyykjwre natural and expected course of this diagnosis and to alert me if symptoms do not follow expected course, or if any worse. Plan for diagnostic mammogram, in meantime, instructed patient to get more supportive bra, use anti-inflammatories and monitor symptoms. Patient verbalized understanding of plan. 01/12/2012 Appointment: Chaparrita Arrieta WPtel: [phone] [phone] Other 01/12/2012 Patient Education: Patient Medication Summary [...] medications. 12/25/2011 Appointment: Concepción Flanagan [facility]Ptel[phone] Other 12/25/2011 Patient Education: Patient Medication Summary [...] SOCKS. 12/04/2011 Appointment: Concepción Flanagan [facility]Ptel: [phone] Other 12/04/2011 Patient Education: Patient Medication Summary Completed 12/04/2011 Patient Education: High Blood Pressure: Essential Hypertension Completed 2011 Appointment: Chaparrita Arrieta WPtel: [phone] [place] Lab Draw 12/01/2011 Patient Education: Patient Medication Summary Completed 12/01/2011 Appointment: Concepción Flanagan WPtel: [phone] [facility] [place] Lab Draw 11/20/2011 Patient Education: Patient [...] acutely worsen. 09/20/2011 Appointment: Concepción Flanagan WPtel: [facility] Other 09/20/2011 Patient Education: Patient Medication Summary Completed 09/20/2011 Patient Education: High Blood Pressure: Essential Hypertension Completed 2011 Appointment: Concepción Flanagan WPtel: [facility] Other 09/13/2011 Visit Plan: Hypertension - The [...] benefits of treament with the above medications. Mprsqok-nwkruwsu-UX negative 09/06/2011 Appointment: Chaparrita Arrieta WPtel: [facility] [address] Other 09/06/2011 Patient Education: Patient Medication Summary [...] they worsen. 08/30/2011 Appointment: Concepción Flanagan WPtel: [facility] [address] Other 08/30/2011 Patient Education: Patient Medication [...] patient's pharmacy. 08/23/2011 Appointment: Chaparrita Arrieta WPtel: [phone] [phone] Other 08/23/2011 Patient Education: Patient Medication Summary Completed 08/23/2011 Visit Plan: Labial cyst-discussed natural and expected course of this diagnosis and to alert me if symtpoms do not follow expected course, or if any worse. Patient and verbalized understanding. 08/09/2011 Appointment: Chaparrita Arrieta WPtel: [phone] [facility] [place] [address] Other 08/09/2011 Patient Education: Patient Medication Summary [...] not improving. 05/04/2011 Appointment: Concepción Flanagan WPtel: [phone] Other 05/04/2011 Patient Education: Patient Medication Summary [...] 40mg daily. 04/19/2011 Appointment: Chaparrita Arrieta WPtel: [address] [place], [place] [address] Other 04/19/2011 Patient Education: Patient Medication Summary [...] do not improve, or if any worse.. Nwefimidb-Uehdys-txguexnt not well controlled-KENALOG injection today in the [...] see an ENT - Hortensia Tompkins in [place]. Treatment as follows: cefdinir - antibiotic twice [...] discuss with her son who is a Office Equipment Mechanic - and consider re-evaluation for nasal pillows [...] twice daily and monitor symptoms. . Breast pwin-tjbe-ouuyiqkpi natural and expected course of this diagnosis [...] benefits of treament with the above medications. Fvlxvfe-ovkicmvm-MU negative . Hypertension - well controlled - [...] HYDROCODONE AT 1/2 PILL TWICE DAILY . HTN - continue with current medications [...] - supportive care at this time. . Edema - pt has been advised [...] readings at home. Recommend follow up with millroom supervisor for clearance before knee surgery. Will get [...] Edema-take lasix every day-follow up Sunday . Hypertension - well controlled - continue [...] if any worse. Patient and verbalized understanding. Recommend nasal saline rinse . Sinusitis - [...] worse. RX sent to patient's pharmacy. . Bsnfx-wujmgcjsxc-nthmv zpack when finished with cipro- follow up [...] to [employer] for re-certification of oxygen. . Hypertension [...] fatigue improved-will fax today's note to [employer] for re-certification of oxygen. . Sinusitis - [...]
[2018-12-27 10:40] VITALS: BP 114/73
--- NOTE | 2018-12-27 10:48 | Ophthalmology Operative Report ---
YAG Capsulotomy PREOPERATIVE DIAGNOSIS: Secondary Cataract Right Eye POSTOPERATIVE DIAGNOSIS: Secondary Cataract Right Eye PROCEDURE: YAG Capsulotomy, right eye SURGEON: Parviz Peters ANESTHESIA: Topical anesthesia COMPLICATIONS: None ESTIMATED BLOOD LOSS: Minimal DESCRIPTION OF PROCEDURE: After proper informed consent was obtained, the patient's, a 83 female, right eye received one drop of Tropicamide and one drop of Tetracaine. The patient was then placed at the YAG laser and using a power of [ 3.2] millijoules and [ 15] bursts were used to fashion a central capsulotomy. The patient tolerated the procedure well without complications and the patient's pressure was [13 ] shortly after the laser. PARVIZ PETERS MD December 27, 2018 10:48
--- OUTSIDE RECORDS SUMMARY | 2018-12-27 10:49 | XMS REPORT | CCD ---
Author Author Chaparrita Arrieta Organization [facility] Address [address] [place] [address] Phone Care Team Providers Care Archaeologist Name Role Phone [facility] Unavailable CCM Unavailable Summary Purpose Interface Exchange Insurance Providers Payer name Policy type / Coverage type Covered alliance party ID Effective Begin Date Effective End Date WPS Medicare Part B Medicare Part B [id number] 2018 Unknown AARP Medicare Part B [id number] Unknown Family history Son Diagnosis Age At [...] status Unknown 04/19/[address]: 7502515 Quit over 10 years ago 40 pack/year [...] Start Date Stop Date Status Fill Instructions Singulair 10 mg tablet RxNorm: 575745 TAKE ONE TABLET BY MOUTH EVERY DAY 09/06/2018 10/30/2019 Active Xanax 0.25 mg tablet RxNorm: 196375 1-2 Tablet(s) PO QHS as needed insomnia 08/26/2018 11/23/2018 Active Voltaren 1 % topical gel RxNorm: 889567 APPLY TWO GRAMS TOPICALLY FOUR TIMES A DAY BILATERAL KNEES AND LOWER BACK 06/26/2018 09/23/2018 Active Lasix 40 mg tablet RxNorm: 072917 TAKE ONE TABLET BY MOUTH DAILY 06/20/2018 12/16/2018 Active Voltaren 1 % topical gel RxNorm: 863287 2 Gram(s) TOP QID bilateral knees and low back 05/29/2018 06/25/2018 Inactive Synthroid 50 mcg tablet RxNorm: 560381 Tablet(s) TAKE ONE TABLET BY MOUTH DAILY 05/17/2018 11/12/2018 Active Synthroid 50 mcg tablet RxNorm: 312306 TAKE ONE TABLET BY MOUTH DAILY 05/16/2018 05/16/2018 Inactive hydrocodone 5 mg-acetaminophen 325 mg tablet RxNorm: 046815 1/2 Tablet(s) PO QID as needed 05/15/2018 06/13/2018 Inactive Keflex 500 mg capsule RxNorm: 525805 1 Capsule(s) PO TID PRN 11/201705/06/2018 Inactive Silvadene 1 % topical cream RxNorm: 717357 1 Application TOP BID 04/30/2018 05/09/2018 Inactive Anusol-HC 25 mg rectal suppository RxNorm: 5759716 1 Suppository PRN INSERT 1 RECTALLY DAILY NEEDED 04/25/2018 No Stop Date Active Colace 100 mg capsule RxNorm: 0579085 1 Capsule(s) PO daily as needed 04/25/2018 No Stop Date Active meloxicam 15 mg tablet RxNorm: 680851 1 Tablet(s) PO daily TAKE ONE TABLET BY MOUTH ONE TIME A DAY 04/25/20182018 Active Silvadene 1 % topical cream RxNorm: 289192 1 Application TOP BID 04/25/2018 04/29/2018 Inactive Benicar 40 mg tablet RxNorm: 395328 TAKE ONE TABLET BY MOUTH DAILY 04/04/2018 03/29/2019 Active Xanax 0.25 mg tablet RxNorm: 429862 1-2 Tablet(s) PO QHS as needed insomnia 03/07/2018 06/04/2018 Inactive Lasix 40 mg tablet RxNorm: 922155 TAKE ONE TABLET BY MOUTH DAILY 01/07/2018 06/19/2018 Inactive Crestor 10 mg tablet RxNorm: 517327 TAKE 1 TABLET BY MOUTH ON SUNDAY, SUNDAY, AND Sunday11/20/2017 05/18/2018 Inactive Synthroid 50 mcg tablet RxNorm: 434381 TAKE ONE TABLET BY MOUTH DAILY 11/14/2017 05/12/2018 Inactive Cartia XT 240 mg capsule,extended release RxNorm: 924208 TAKE ONE CAPSULE BY MOUTH DAILY 09/12/2017 09/06/2018 Inactive Diflucan 150 mg tablet RxNorm: 087261 1 Tablet(s) PO daily 09/25/2017 Inactive cefdinir 300 mg capsule RxNorm: 510280 1 Capsule(s) PO BID 09/25/2017 Inactive prednisone 20 mg tablet RxNorm: 299782 2 Tablet(s) PO daily 12/201709/04/2017 Inactive Xanax 0.25 mg tablet RxNorm: 877212 1-2 Tablet(s) PO QHS as needed insomnia 08/28/2017 11/24/2017 Inactive Keflex 500 mg capsule RxNorm: 001300 1 Capsule(s) PO TID 201708/27/2017 Inactive Keflex 500 mg capsule RxNorm: 043031 1 Capsule(s) PO TID 201709/03/2017 Inactive Klor-Con 10 mEq tablet,extended release RxNorm: 868429 TAKE ONE TABLET BY MOUTH TWICE A DAY 08/23/2017 08/17/2018 Inactive cefdinir 300 mg capsule RxNorm: 983316 1 Capsule(s) PO BID 08/12/2017 Inactive cefdinir 300 mg capsule RxNorm: 714994 1 Capsule(s) PO BID 08/19/2017 Inactive Kenalog 40 mg/mL suspension for injection RxNorm: 5423338 1 Milliliter(s) Inj 08/09/2017 08/09/2017 Inactive ceftriaxone 500 mg solution for injection RxNorm: 7835615 Inj 08/09/2017 08/09/2017 Inactive Zithromax Z-Hebert 250 mg tablet RxNorm: 435852 1 Tablet(s) PO UD 08/09/2017 08/13/2017 Inactive Singulair 10 mg tablet RxNorm: 799937 TAKE ONE TABLET BY MOUTH EVERY DAY 08/03/2017 09/05/2018 Inactive Xanax 0.25 mg tablet RxNorm: 517674 1-2 Tablet(s) PO QHS as needed insomnia 07/25/2017 05/28/2018 Inactive Benicar 40 mg tablet RxNorm: 478216 TAKE ONE TABLET BY MOUTH DAILY 07/09/2017 04/03/2018 Inactive Lasix 40 mg tablet RxNorm: 845530 TAKE ONE TABLET BY MOUTH DAILY 07/09/2017 01/04/2018 Inactive Synthroid 50 mcg tablet RxNorm: 384759 1 Tablet(s) PO daily TAKE ONE TABLET BY MOUTH DAILY 05/21/2017 11/13/2017 Inactive Must be name brand Lasix 40 mg tablet RxNorm: 158155 TAKE ONE TABLET BY MOUTH DAILY 04/12/2017 07/08/2017 Inactive Zithromax Z-Hebert 250 mg tablet RxNorm: 878033 1 Tablet(s) PO UD 02/05/2017 02/09/2017 Inactive start with finished with cipro Cipro 500 mg tablet RxNorm: 000727 1 Tablet(s) PO BID 201602/07/2017 Inactive prednisone 20 mg tablet RxNorm: 835971 1 Tablet(s) PO BID 01/1501/19/2017 Inactive take 1 in the morning and 1 at noon calcium carbonate 600 mg calcium (1,500 mg) tablet RxNorm: 973751 1 Tablet(s) PO daily 01/04/2017 No Stop Date Active Kenalog 40 mg/mL suspension for injection RxNorm: 7677876 1 Milliliter(s) Inj 01/04/2017 01/04/2017 Inactive Anusol-HC 25 mg rectal suppository RxNorm: 8770440 1 Suppository PRN INSERT 1 RECTALLY DAILY NEEDED 01/04/20172016 Inactive Lasix 40 mg tablet RxNorm: 087123 TAKE ONE TABLET BY MOUTH DAILY 12/20/2016 04/11/2017 Inactive Cartia XT 240 mg capsule,extended release RxNorm: 598954 TAKE ONE CAPSULE BY MOUTH DAILY 12/20/2016 09/11/2017 Inactive Synthroid 50 mcg tablet RxNorm: 054465 1 Tablet(s) PO daily TAKE ONE TABLET BY MOUTH DAILY 11/27/2016 05/20/2017 Inactive Must be name brand meloxicam 15 mg tablet RxNorm: 424727 Tablet(s) TAKE ONE TABLET BY MOUTH ONE TIME A DAY 11/27/2016 06/24/2017 Inactive Crestor 10 mg tablet RxNorm: 616413 TAKE 1 TABLET BY MOUTH ON SUNDAY, SUNDAY, AND Sunday11/13/2016 10/14/2017 Inactive Lexapro 10 mg tablet RxNorm: 353256 1 Tablet(s) PO daily 201601/03/2017 Inactive please make sure that her RX for lexapro is a 10mg dose - delete the 5mg lexapro pill - this is FYI Klor-Con 10 mEq tablet,extended release RxNorm: 488890 TAKE ONE TABLET BY MOUTH TWICE A DAY 08/29/2016 02/24/2017 Inactive Kenalog 40 mg/mL suspension for injection RxNorm: 1274757 Milliliter(s) Inj 08/23/2016 08/23/2016 Inactive cefdinir 300 mg capsule RxNorm: 758533 1 Capsule(s) PO BID 08/28/2016 Inactive take probiotic while on abx Zithromax Z-Hebert 250 mg tablet RxNorm: 106477 1 Tablet(s) PO UD 08/11/2016 09/06/2016 Inactive Z PACK DIRECTED Lexapro 5 mg tablet RxNorm: 732616 TAKE ONE TABLET BY MOUTH EVERY EVENING 07/18/2016 09/06/2016 Inactive Singulair 10 mg tablet RxNorm: 896179 TAKE ONE TABLET BY MOUTH EVERY DAY 07/17/2016 08/02/2017 Inactive Benicar 40 mg tablet RxNorm: 694660 TAKE ONE TABLET BY MOUTH DAILY 07/17/2016 07/08/2017 Inactive Lexapro 10 mg tablet RxNorm: 244641 1 Tablet(s) PO daily 201509/06/2016 Inactive diltiazem ER 180 mg capsule,extended release RxNorm: 344433 TAKE ONE CAPSULE BY MOUTH DAILY 06/15/2016 07/05/2016 Inactive Lexapro 10 mg tablet RxNorm: 113981 1 Tablet(s) PO daily 201506/15/2016 Inactive gabapentin 600 mg tablet RxNorm: 638188 TAKE ONE TABLET BY MOUTH EVERY NIGHT AT BEDTIME NEEDED 04/27/2016 04/11/2017 Inactive Cartia XT 240 mg capsule,extended release RxNorm: 098028 1 Capsule(s) PO daily TAKE ONE CAPSULE BY MOUTH ONCE A DAY 04/17/2016 12/19/2016 Inactive Benicar 40 mg tablet RxNorm: 665220 1 Tablet(s) PO daily 201507/16/2016 Inactive she can do 90 days if she wants to Lexapro 5 mg tablet RxNorm: 517518 1 Tablet(s) PO QPM 201506/07/2016 Inactive Synthroid 50 mcg tablet RxNorm: 569916 1 Tablet(s) PO daily TAKE ONE TABLET BY MOUTH DAILY 01/18/2016 07/15/2016 Inactive Colace 100 mg capsule RxNorm: 3195473 1 Capsule(s) PO daily 04/24/2018 Inactive hydrocodone 5 mg-acetaminophen 325 mg tablet RxNorm: 493944 1/2 Tablet(s) PO QID as needed 01/18/2016 02/16/2016 Inactive Synthroid 50 mcg tablet RxNorm: 741239 Tablet(s) TAKE ONE TABLET BY MOUTH DAILY 12/23/2015 01/17/2016 Inactive Benicar 40 mg tablet RxNorm: 887131 1 Tablet(s) PO daily 201512/12/2015 Inactive Benicar 40 mg tablet RxNorm: 059059 1 Tablet(s) PO daily 201504/10/2016 Inactive meloxicam 15 mg tablet RxNorm: 988544 TAKE ONE TABLET BY MOUTH ONE TIME A DAY 11/12/2015 06/08/2016 Inactive meloxicam 15 mg tablet RxNorm: 263808 Tablet(s) TAKE ONE TABLET BY MOUTH ONE TIME A DAY 11/11/2015 11/11/2015 Inactive Lasix 40 mg tablet RxNorm: 249220 Tablet(s) TAKE ONE TABLET BY MOUTH EVERY DAY 10/19/2015 12/19/2016 Inactive diltiazem ER 180 mg capsule,extended release RxNorm: 517330 1 Capsule(s) daily TAKE ONE CAPSULE BY MOUTH ONCE A DAY 09/27/2015 04/16/2016 Inactive Crestor 10 mg tablet RxNorm: 863514 1 Tablet(s) PO Sun09/17/2015 07/12/2016 Inactive [SAVINGS FOR UNINSURED PATIENTS -- BIN:[id number], PCN: ASPROD1, Group: [id number], ID# [id number], Process claim through [employer], for questions: [phone]. THIS IS NOT INSURANCE.] hydrocodone 5 mg-acetaminophen 325 mg tablet RxNorm: 751439 1-2 Tablet(s) PO Q6 PRN 09/09/2015 10/08/2015 Inactive Micardis 80 mg tablet RxNorm: 991360 1 Tablet(s) PO daily TAKE ONE TABLET BY MOUTH DAILY 08/23/2015 12/12/2015 Inactive Klor-Con 10 mEq tablet,extended release RxNorm: 181355 Tablet(s) TAKE ONE TABLET BY MOUTH TWICE A DAY 08/23/20152015 Inactive Synthroid 50 mcg tablet RxNorm: 500337 TAKE ONE TABLET BY MOUTH DAILY 07/06/2015 12/22/2015 Inactive meloxicam 15 mg tablet RxNorm: 406851 TAKE ONE TABLET BY MOUTH ONE TIME A DAY 06/22/2015 11/10/2015 Inactive Singulair 10 mg tablet RxNorm: 715612 TAKE ONE TABLET BY MOUTH EVERY DAY 05/18/2015 07/16/2016 Inactive Micardis 80 mg tablet RxNorm: 337316 TAKE ONE TABLET BY MOUTH DAILY 02/22/2015 05/04/2015 Inactive gabapentin 600 mg tablet RxNorm: 711003 1 Tablet(s) PO HS as needed 01/15/2015 01/09/2016 Inactive [SAVINGS FOR NON-COVERED DRUGS -- BIN:[id number], PCN: ASPROD1, Group : [id number], ID# [id number], Questions: . THIS IS NOT INSURANCE.] diltiazem ER 180 mg capsule,extended release RxNorm: 009713 TAKE ONE CAPSULE BY MOUTH ONCE A DAY 01/07/2015 09/26/2015 Inactive meloxicam 15 mg tablet RxNorm: 583005 TAKE ONE TABLET BY MOUTH ONE TIME A DAY 11/09/2014 05/07/2015 Inactive gabapentin 600 mg tablet RxNorm: 318445 1 Tablet(s) PO HS as needed 10/13/2014 01/14/2015 Inactive [SAVINGS FOR UNINSURED PATIENTS -- BIN:553741, PCN: ASPROD1, Group: [id number], ID# [id number], Process claim through [employer], for questions: [phone]. THIS IS NOT INSURANCE.] omeprazole 20 mg tablet,delayed release RxNorm: 647428 1 Tablet(s) PO daily 10/13/2014 11/11/2014 Inactive Synthroid 50 mcg tablet RxNorm: 528255 TAKE ONE TABLET BY MOUTH EVERY DAY 10/12/2014 01/09/2015 Inactive Synthroid 50 mcg tablet RxNorm: 744150 Tablet(s) TAKE ONE TABLET BY MOUTH EVERY DAY 10/12/2014 10/11/2014 Inactive [SAVINGS FOR UNINSURED PATIENTS -- BIN:931711, PCN: ASPROD1, Group: [id number], ID# [id number], Process claim through [employer], for questions: . THIS IS NOT INSURANCE.] Lasix 40 mg tablet RxNorm: 003243 Tablet(s) PO TAKE ONE TABLET BY MOUTH TWICE A DAY FOR 3 DAYS, THEN RESUME ONE DAILY EXCEPT ON WEDNESDAYS AND FRIDAYS TAKE ONE TWICE DAILY 09/22/2014 05/28/2018 Inactive [SAVINGS FOR UNINSURED PATIENTS -- BIN: 887083, PCN: ASPROD1, Group: [id number], ID# [id number], Process claim through [employer] , for questions: . THIS IS NOT INSURANCE.] Lasix 40 mg tablet RxNorm: 930763 TAKE ONE TABLET BY MOUTH EVERY DAY 09/22/2014 10/18/2015 Inactive Crestor 10 mg tablet RxNorm: 148440 1 Tablet(s) PO Sun08/28/2014 04/24/2015 Inactive [SAVINGS FOR UNINSURED PATIENTS -- BIN:597545, PCN: ASPROD1, Group: [id number], ID# [id number], Process claim through [employer], for questions: [phone]. THIS IS NOT INSURANCE.] Crestor 10 mg tablet RxNorm: 419095 1 Tablet(s) PO Sun08/28/2014 08/27/2014 Inactive [SAVINGS FOR UNINSURED PATIENTS -- BIN:435057, PCN: ASPROD1, Group: [id number], ID# [id number], Process claim through [employer], for questions: [phone]. THIS IS NOT INSURANCE.] Micardis 80 mg tablet RxNorm: 060193 TAKE ONE TABLET BY MOUTH EVERY DAY 08/24/2014 12/21/2014 Inactive Zithromax Z-Hebert 250 mg tablet RxNorm: 881210 Tablet(s) PO UD 08/18/2014 Inactive 2 tabs day 1, 1 tabs days 2-5 Anusol-HC 25 mg suppository RxNorm: 8063983 INSERT 1 RECTALLY DAILY NEEDED 07/13/2014 10/10/2014 Inactive Klor-Con 10 mEq tablet,extended release RxNorm: 008028 TAKE ONE TABLET BY MOUTH TWICE A DAY 06/18/2014 12/14/2014 Inactive Lomotil 2.5 mg-0.025 mg tablet RxNorm: 6451977 1 Tablet(s) PO PRN after each loose stool max 8 per day 06/15/201410/12 Inactive one after each loose bm limit 8 per day albuterol sulfate HFA 90 mcg/actuation aerosol inhaler RxNorm: 9777322 1 or2 Puff( s) INH Q4 PRN as needed 05/11/20142013 Inactive albuterol sulfate HFA 90 mcg/actuation aerosol inhaler RxNorm: 6772660 1 or2 Puff( s) INH Q4 PRN as needed 05/11/20142016 Inactive Premarin 0.625 mg/gram vaginal cream RxNorm: 913793 1/2 Gram(s) VAG every other day 05/11/2014 12/06/2014 Inactive Premarin 0.625 mg/gram vaginal cream RxNorm: 653523 1/2 Gram(s) VAG every other day 05/11/2014 05/10/2014 Inactive cefdinir 300 mg capsule RxNorm: 158024 1 Capsule(s) PO BID 06/201405/16/2014 Inactive Rocephin 500 mg solution for injection RxNorm: 096657 1 Milliliter(s) Inj 05/07/2014 05/07/2014 Inactive Singulair 10 mg tablet RxNorm: 282236 TAKE ONE TABLET BY MOUTH EVERY DAY 04/30/2014 10/12/2014 Inactive meloxicam 15 mg tablet RxNorm: 450316 1 Tablet(s) PO daily 11/08/2014 Inactive Crestor 10 mg tablet RxNorm: 747826 1 Tablet(s) PO Sun TAKE ONE TABLET BY MOUTH EVERY DAY 04/16/2014 08/27/2014 Inactive Synthroid 50 mcg tablet RxNorm: 148254 TAKE ONE TABLET BY MOUTH EVERY DAY 04/02/2014 09/28/2014 Inactive diltiazem ER 180 mg capsule,extended release RxNorm: 545179 1 Capsule(s) PO daily 01/05/2014 12/30/2014 Inactive Pennsaid 1.5 % topical drops RxNorm: 565812 Drop(s) TOP APPLY 15 - 20 DROPS TOPICALLY FOUR TIMES A DAY 12/29/2013 Inactive Rocephin 500 mg solution for injection RxNorm: 571623 Inj 12/2612/26/2013 Inactive Kenalog 40 mg/mL suspension for injection RxNorm: 7022967 Milliliter(s) Inj 12/26/2013 12/26/2013 Inactive Micardis 80 mg tablet RxNorm: 729678 Tablet(s) PO TAKE ONE TABLET BY MOUTH EVERY DAY 12/15/2013 08/23/2014 Inactive nystatin 100,000 unit/mL oral suspension RxNorm: 020241 4 Unit(s) PO QID swish and swallow 11/12/2013 12/09/2013 Inactive Kenalog 40 mg/mL suspension for injection RxNorm: 3833196 Milliliter(s) Inj 11/12/2013 11/12/2013 Inactive Lasix 40 mg tablet RxNorm: 048807 Tablet(s) PO TAKE ONE TABLET BY MOUTH TWICE A DAY FOR 3 DAYS, THEN RESUME ONE DAILY EXCEPT ON WEDNESDAYS AND FRIDAYS TAKE ONE TWICE DAILY 10/30/2013 09/21/2014 Inactive Lasix 40 mg tablet RxNorm: 570925 1 Tablet(s) PO daily 201310/29/2013 Inactive Rocephin 500 mg solution for injection RxNorm: 559917 1 Milliliter(s) Inj 10/09/2013 10/09/2013 Inactive metoprolol succinate ER 25 mg tablet,extended release 24 hr RxNorm: 815776 Tablet (s) PO TAKE ONE TABLET BY MOUTH EVERY DAY 10/02/2013 01/06/2014 Inactive metoprolol succinate ER 25 mg tablet,extended release 24 hr RxNorm: 935403 Tablet (s) PO TAKE ONE TABLET BY MOUTH EVERY DAY 08/04/2013 10/01/2013 Inactive Synthroid 50 mcg tablet RxNorm: 736474 Tablet(s) PO TAKE ONE TABLET BY MOUTH EVERY DAY 07/14/2013 04/01/2014 Inactive gabapentin 600 mg tablet RxNorm: 852770 1 Tablet(s) PO Q8 PRN 06/11/2013 06/11/2013 Inactive gabapentin 600 mg tablet RxNorm: 183227 1 Tablet(s) PO Q8 PRN 06/11/2013 03/07/2014 Inactive Neurontin 600 mg tablet RxNorm: 417966 1 Tablet(s) PO Q8 PRN 06/11/2013 Inactive Anusol-HC 25 mg suppository RxNorm: 0891017 Suppository RTL INSERT 1 RECTALLY DAILY NEEDED 04/24/2013 07/12/2014 Inactive metoprolol succinate ER 25 mg tablet,extended release 24 hr RxNorm: 597335 1 Tablet(s) PO daily 04/21/2013 08/03/2013 Inactive Premarin 0.625 mg/gram Vaginal Cream RxNorm: 992114 1/2 Gram(s) VAG every other day 04/03/2013 10/29/2013 Inactive Klor-Con 10 mEq tablet,extended release RxNorm: 856671 1 Tablet(s) PO daily 03/26/2013 03/20/2014 Inactive Klor-Con 10 mEq tablet,extended release RxNorm: 887509 1 Tablet(s) PO BID 03/24/2013 03/23/2013 Inactive Klor-Con 10 mEq tablet,extended release RxNorm: 381346 1 Tablet(s) PO BID 03/24/2013 03/25/2013 Inactive Klor-Con 10 mEq tablet,extended release RxNorm: 580923 1 Tablet(s) PO BID 03/24/2013 03/23/2013 Inactive Augmentin 875 mg-125 mg tablet RxNorm: 687276 1 Tablet(s) PO BID 03/12/2013 03/18/2013 Inactive Augmentin 875 mg-125 mg tablet RxNorm: 255789 1 Tablet(s) PO BID 03/12/2013 03/11/2013 Inactive ciprofloxacin 500 mg tablet RxNorm: 901402 1 Tablet(s) PO BID 03/11/2013 03/17/2013 Inactive ciprofloxacin 500 mg tablet RxNorm: 436358 1 Tablet(s) PO BID 03/11/2013 03/10/2013 Inactive Crestor 10 mg tablet RxNorm: 446042 1 Tablet(s) PO daily 201202/09/2013 Inactive Crestor 10 mg tablet RxNorm: 873260 Tablet(s) PO TAKE ONE TABLET BY MOUTH EVERY DAY 02/10/2013 04/15/2014 Inactive Singulair 10 mg tablet RxNorm: 994391 Tablet(s) PO TAKE ONE TABLET BY MOUTH EVERY DAY 02/04/2013 04/29/2014 Inactive Kenalog 40 mg/mL Susp for Injection RxNorm: 0807794 1 Milliliter(s) Inj 11/21/2012 11/21/2012 Inactive Pennsaid 1.5 % topical drops RxNorm: 535454 15-20 Drop(s) TOP QID 10/28/2012 11/21/2013 Inactive Micardis 80 mg tablet RxNorm: 870459 1 Tablet(s) PO daily 201210/22/2013 Inactive put this on file please, roclucero increase Pennsaid 1.5 % Topical Drops RxNorm: 083096 15-20 Drop(s) TOP QID 10/28/2012 10/27/2012 Inactive diltiazem ER 180 mg capsule,extended release RxNorm: 939640 1 Capsule(s) PO daily 10/14/2012 10/08/2013 Inactive Pyridium 200 mg tablet RxNorm: 2000297 1 Tablet(s) PO Q8 PRN 10/12/2014 Inactive Flagyl 500 mg tablet RxNorm: 384685 1 Tablet(s) PO TID 201209/10/2012 Inactive Macrobid 100 mg capsule RxNorm: 4335888 1 Capsule(s) PO BID 03/201309/02/2012 Inactive Macrobid 100 mg capsule RxNorm: 7223242 1 Capsule(s) PO BID 03/201309/09/2012 Inactive sulfamethoxazole-trimethoprim 800 mg-160 mg tablet RxNorm: 429752 1 Tablet(s) PO BID 08/05/2012 08/14/2012 Inactive Lasix 40 mg tablet RxNorm: 255352 1 Tablet(s) PO BID pt is taking extra lasix x 3 days, then every sunday and sunday take two lasix pills. 07/15/2012 07/09/2013 Inactive Synthroid 50 mcg tablet RxNorm: 912808 1 Tablet(s) PO daily 07/09/2013 Inactive do not substitute the generic levothyroxine for the synthroid brand name.....she needs brand name synthroid. Klor-Con 10 mEq tablet,extended release RxNorm: 914598 1 Tablet(s) PO BID 07/15/2012 03/23/2013 Inactive Singulair 10 mg tablet RxNorm: 247837 1 Tablet(s) PO daily 02/03/2013 Inactive Lexapro 10 mg tablet RxNorm: 803830 1/2 Tablet(s) PO daily 06/03/2013 Inactive ProAir HFA 90 mcg/actuation Aerosol Inhaler RxNorm: 890094 2 INH Q6 PRN 04/23/2012 01/17/2016 Inactive Lexapro 10 mg tablet RxNorm: 655515 1/2 Tablet(s) PO daily 05/09/2012 Inactive metoprolol succinate ER 50 mg tablet,extended release 24 hr RxNorm: 172822 1 Tablet(s) PO daily 04/09/2012 04/09/2012 Inactive Klor-Con 10 10 mEq tablet,extended release RxNorm: 751850 1 Tablet(s) PO daily 04/01/2012 07/14/2012 Inactive metoprolol succinate ER 50 mg tablet,extended release 24 hr RxNorm: 394304 1/2 Tablet(s) PO BID 03/11/2012 04/08/2012 Inactive clonidine 0.1 mg Tab RxNorm: 363203 1 Tablet(s) PO BID 201103/12/2012 Inactive clonidine 0.1 mg Tab RxNorm: 204899 1 Tablet(s) PO BID 201102/18/2012 Inactive Micardis 80 mg Tab RxNorm: 193157 1 Tablet(s) PO daily 201102/13/2012 Inactive Micardis 80 mg tablet RxNorm: 682520 1 Tablet(s) PO daily 201110/27/2012 Inactive Synthroid 50 mcg tablet RxNorm: 018654 1 Tablet(s) PO daily 07/14/2012 Inactive Tekturna 300 mg Tab RxNorm: 0200968 1 Tablet(s) PO daily 02/1103/12/2012 Inactive Lasix 40 mg Tab RxNorm : 630660 1 Tablet(s) PO daily 12/18/2011 12/17/2011 Inactive Lasix 40 mg tablet RxNorm: 397698 1 Tablet(s) PO daily 201107/14/2012 Inactive Anusol-HC 25 mg Suppository RxNorm: 7663250 1 Suppository RTL QDAY PRN 12/04/2011 04/19/2012 Inactive lactobacillus acidophilus Cap RxNorm: 1 Capsule(s) PO BID 11/20/2011 Inactive lactobacillus acidophilus Cap RxNorm: 1 Capsule(s) PO BID 11/20/2011 Inactive Cipro 500 mg Tab RxNorm: 762731 1 Tablet(s) PO BID 201103/12/2012 Inactive lactobacillus acidophilus Cap RxNorm: 1 Capsule(s) PO BID 11/27/2011 Inactive lactobacillus acidophilus Cap RxNorm: 1 Capsule(s) PO BID 11/20/2011 Inactive Cipro 500 mg Tab RxNorm: 754529 1 Tablet(s) PO BID 201111/20/2011 Inactive Lexapro 10 mg Tab RxNorm: 160741 1 Tablet(s) PO daily 201111/12/2011 Inactive Lexapro 10 mg tablet RxNorm: 059984 1 Tablet(s) PO daily 201104/18/2012 Inactive amlodipine 10 mg Tab RxNorm: 913668 1 Tablet(s) PO daily 201112/03/2011 Inactive amlodipine 5 mg Tab RxNorm: 714252 1 Tablet(s) PO daily 201112/04/2011 Inactive Rocephin 500 mg Solution for Injection RxNorm: 182447 Inj 08/3009/20/2011 Inactive metoprolol succinate ER 25 mg 24 hr Tab RxNorm: 446910 1 Tablet(s) PO QHS 08/30/2011 09/20/2011 Inactive Ambien 10 mg Tab RxNorm: 444115 1 Tablet(s) PO HS PRN 08/3004/19/2012 Inactive Augmentin 875 mg-125 mg Tab RxNorm: 156140 1 Tablet(s) PO BID 08/25/2011 09/20/2011 Inactive Augmentin 875 mg-125 mg Tab RxNorm: 879227 1 Tablet(s) PO BID 08/25/2011 08/24/2011 Inactive Rocephin 500 mg Solution for Injection RxNorm: 102558 Inj 08/2308/23/2011 Inactive Levaquin 500 mg Tab RxNorm: 771979 1 Tablet(s) PO daily 201008/30/2011 Inactive chlordiazepoxide-clidinium 5 mg-2.5 mg Cap RxNorm: 985246 1 Capsule(s) PO BID 07/10/2011 04/19/2012 Inactive q 12 hours prn metoprolol succinate ER 100 mg 24 hr Tab RxNorm: 031386 1 Tablet(s) PO daily 05/29/2011 03/12/2012 Inactive Synthroid 50 mcg Tab RxNorm: 224471 1 Tablet(s) PO daily 201008/12/2011 Inactive Ambien CR 12.5 mg Tab RxNorm: 243123 1 Tablet(s) PO HS PRN 05/0908/30/2011 Inactive Ambien 10 mg Tab RxNorm: 655660 1 Tablet(s) PO QHS 201006/07/2011 Inactive Nexium 40 mg Cap RxNorm: 802105 1 Capsule(s) PO daily 05/0403/12/2012 Inactive the patient had tried pepcid, otc priolosec, RX omperazole, failed them all Bactrim DS 800 mg-160 mg Tab RxNorm: 428820 1 Tablet(s) PO BID 04/19/2011 08/30/2011 Inactive triamcinolone acetonide 40 mg/mL Susp for Injection RxNorm: 9710406 1 Milliliter(s ) Inj UD 04/19/2011 04/19/2011 Inactive aspirin 81 mg Tab, Delayed Release RxNorm: 559016 1 Tablet(s) PO daily No Start Date Active 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 Device RxNorm: Miscellaneous QHS sleep apnea, 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 No Start Date Active Cymbalta 30 mg Cap RxNorm: 134956 1 Capsule(s) PO daily No Start Date 03/12/2012 Inactive Nexium 40 mg Cap RxNorm: 726275 Capsule(s) PO No Start Date 05/03/2011 Inactive Benadryl 25 mg capsule RxNorm: 8696210 1 Capsule(s) PO QHS No Start Date 01/03/2017 Inactive Klor-Con 10 10 mEq tablet,extended release RxNorm: 913880 1 Tablet(s) PO daily No Start Date 03/31/2012 Inactive Metamucil Oral RxNorm : Oral No Start Date 10/12/2014 Inactive amlodipine 10 mg Tab RxNorm: 096299 1 Tablet(s) PO daily No Start Date 10/08/2011 Inactive Norvasc 5 mg tablet RxNorm: 054312 1 Tablet(s) PO daily No Start Date 10/12/2014 Inactive Lasix 40 mg Tab RxNorm : 023498 1 Tablet(s) PO daily No Start Date 12/17/2011 Inactive diltiazem ER (XR/XT) 240 mg capsule,extended release, controlled RxNorm: 476658 1 Capsule(s) PO daily No Start Date Inactive Centrum Silver Ultra Women's oral RxNorm: 57590 oral No Start Date 04/24/2018 Inactive Synthroid 50 mcg Tab RxNorm: 132045 1 Tablet(s) PO daily No Start Date 05/14/2011 Inactive Flagyl 500 mg tablet RxNorm: 492050 1 Tablet(s) PO No Start Date 09/03/2012 Inactive one after each loose bm limit 8 per day Boniva 150 mg Tab RxNorm: 977546 1 Tablet(s) PO UD No Start Date 08/30/2011 Inactive monthly Singulair 10 mg tablet RxNorm: 417400 1 Tablet(s) PO daily No Start Date 06/11/2012 Inactive folic acid Oral RxNorm : Oral No Start Date 03/12/2012 Inactive potassium chloride ER 10 mEq tablet,extended release RxNorm: 272078 1 Tablet(s) PO daily No Start Date 01/03/2017 Inactive Probiotic & Acidophilus oral RxNorm: oral No Start Date 04/24/2018 Inactive Librium 10 mg Cap RxNorm: 144721 Capsule(s) PO UD No Start Date 03/12/2012 Inactive q 12 hours prn Crestor 10 mg tablet RxNorm: 945646 1 Tablet(s) PO daily No Start Date 02/09/2013 Inactive multivitamin Cap RxNorm: 1 Capsule(s) PO daily No Start Date 01/17/2016 Inactive metoprolol succinate ER 100 mg 24 hr Tab RxNorm: 725291 1 Tablet(s) PO daily No Start Date 05/28/2011 Inactive Zithromax Z-Hebert 250 mg tablet RxNorm: 651722 Tablet(s) PO UD No Start Date 12/22/2015 Inactive diltiazem ER 180 mg capsule,extended release RxNorm: 085882 1 Capsule(s) PO daily No Start Date 10/13/2012 Inactive Tekturna 300 mg Tab RxNorm: 7003355 1 Tablet(s) PO daily samples No Start Date 02/11/2012 Inactive Xanax 0.25 mg tablet RxNorm: 594197 1-2 Tablet(s) PO QHS as needed insomnia No Start Date 07/24/2017 Inactive Fish Oil 1,000 mg Cap RxNorm: 1 Capsule(s) PO daily No Start Date 04/24/2018 Inactive ProAir HFA 90 mcg/actuation Aerosol Inhaler RxNorm: 229337 2 INH Q6 PRN No Start Date 04/22/2012 Inactive chlordiazepoxide-clidinium 5 mg-2.5 mg Cap RxNorm: 603027 1 Capsule(s) PO PRN No Start Date 07/09/2011 Inactive q 12 hours prn Butrans 5 mcg/hour Transderm Patch RxNorm: 550780 1 Patch TD weekly No Start Date 05/26/2012 Inactive Lactobacillus acidophilus tablet RxNorm: 4 Tablet(s) PO daily No Start Date 01/03/2017 Inactive Librax (with clidinium) 5 mg-2.5 mg capsule RxNorm: 936835 1 Capsule(s) PO BID No Start Date 04/18/2012 Inactive Nexium 40 mg capsule,delayed release RxNorm: 989609 Capsule(s) PO PRN No Start Date 10/12/2014 Inactive Tylenol Extra Strength 500 mg tablet RxNorm: 211239 1 Tablet(s) PO BID as needed for pain No Start Date 04/24/2018 Inactive Premarin 0.625 mg/gram Vaginal Cream RxNorm: 681182 Gram(s) VAG No Start Date 03/12/2012 Inactive three times a week, small amt to vaginal tissuesample given metoprolol succinate ER 50 mg tablet,extended release 24 hr RxNorm: 683579 1 Tablet(s) PO daily No Start Date 2011 Inactive Zithromax Z-Hebert 250 mg tablet RxNorm: 631038 Tablet(s) PO UD No Start Date 08/13/2014 Inactive albuterol sulfate HFA 90 mcg/actuation aerosol inhaler RxNorm: 7465361 1 or2 Puff( s) INH Q4 PRN No Start Date 05/10/2014 Inactive Xanax 0.25 mg Tab RxNorm: 985809 1/2-1 Tablet(s) PO Q8 PRN No Start Date 03/12/2012 Inactive metoprolol succinate ER 25 mg tablet,extended release 24 hr RxNorm: 369568 1 Tablet(s) PO daily No Start Date 2012 Inactive Zithromax Z-Hebert 250 mg tablet RxNorm: 248069 1 Tablet(s) PO UD No Start Date 08/10/2016 Inactive Z PACK DIRECTED calcium carbonate 600 mg (1,500 mg) Tab RxNorm: 914848 1 Tablet(s) PO BID No Start Date 01/03/2017 Inactive albuterol sulfate HFA 90 mcg/Actuation Aerosol Inhaler RxNorm: 360305 1-2 Puff(s) INH Q4 PRN No Start Date 03/11/2012 Inactive Vitamin D3 2,000 unit capsule RxNorm: 781676 1 Capsule(s) PO daily No Start Date 10/12/2014 Inactive Colace 100 mg Cap RxNorm: 2905804 1 Capsule(s) PO BID No Start Date 01/17/2016 Inactive Neurontin 600 mg tablet RxNorm: 200066 1 Tablet(s) PO Q8 PRN No Start Date 06/09/2013 Inactive Lomotil 2.5 mg-0.025 mg tablet RxNorm: 3348062 1 Tablet(s) PO No Start Date 06/14/2014 Inactive one after each loose bm limit 8 per day Micardis 80 mg Tab RxNorm: 645363 1 Tablet(s) PO daily No Start Date 12/03/2011 Inactive Pyridium 200 mg tablet RxNorm: 1379493 1 Tablet(s) PO Q8 PRN No Start Date 09/10/2012 Inactive Medication Administered Medication Codes Instructions Start Date Status ceftriaxone 500 mg solution for injection RxNorm: 5269205 08/09/2017 No longer Active Kenalog 40 mg/mL suspension for injection RxNorm: 3501156 1Milliliter 08/09/2017 No longer Active Kenalog 40 mg/mL suspension for injection RxNorm: 1234649 1Milliliter 01/04/2017 No longer Active Kenalog 40 mg/mL suspension for injection RxNorm: 2800160 Milliliter 08/23/2016 No longer Active Rocephin 500 mg solution for injection RxNorm: 707494 1Milliliter 05/07/2014 No longer Active Kenalog 40 mg/mL suspension for injection RxNorm: 4491300 Milliliter 12/26/2013 No longer Active Rocephin 500 mg solution for injection RxNorm: 894333 12/26/2013 No longer Active Kenalog 40 mg/mL suspension for injection RxNorm: 8061866 Milliliter 11/12/2013 No longer Active Rocephin 500 mg solution for injection RxNorm: 759628 1Milliliter 10/09/2013 No longer Active Kenalog 40 mg/mL Susp for Injection RxNorm: 9598539 1Milliliter 11/21/2012 No longer Active Rocephin 500 mg Solution for Injection RxNorm: 532868 08/23/2011 No longer Active triamcinolone acetonide 40 mg/mL Susp for Injection RxNorm: 8320658 1MilliliterUD 04/19/2011 No longer Active Immunizations Vaccine [...] Item Item Code Result Date Comp Metabolic Nyx938 NA 139 mEq/L 05/29/2018 Comp Metabolic Oxy612 K 4.1 mEq/L 05/29/2018 Comp Metabolic Pkw009 CL 99 mEq/L 05/29/2018 Comp Metabolic Vii898 CO2 30.0 mEq/L 05/29/2018 Comp Metabolic Ude421 ANION GAP 14 05/29/2018 Comp Metabolic Pxm921 GLUCOSE 107 mg/dL 05/29/2018 Comp Metabolic Nfm832 Creat 0.6 mg/dL 05/29/2018 Comp Metabolic Liu286 eGFR 95 ml/min/1.73m2 05/29/2018 Comp Metabolic Dmu666 BUN 15 mg/dL 05/29/2018 Comp Metabolic Jdy872 B/C Ratio 23.4 Ratio 05/29/2018 Comp Metabolic Mry069 CALCIUM 9.4 mg/dL 05/29/2018 Comp Metabolic Dvp945 ALK PHOS 52 U/L 05/29/2018 Comp Metabolic Xvq139 AST(SGOT) 16 U/L 05/29/2018 Comp Metabolic Kxo864 ALT(SGPT) 12 U/L 05/29/2018 Comp Metabolic Ojl714 BILI T 1.1 mg/dL 05/29/2018 Comp Metabolic Yth438 ALBUMIN 4.0 g/dL 05/29/2018 Comp Metabolic Nrs750 TPRO 6.5 g/dL 05/29/2018 Comp Metabolic Cdq892 GLOB 2.5 g/dL 05/29/2018 Comp Metabolic Qoi810 A/G Ratio 1.6 Ratio 05/29/2018 Comp Metabolic Tvl761 Osmo 279 mOsmo 05/29/2018 Cbc With Differential [...] 28.9 pg 05/29/2018 Cbc With Differential Ord2 [place]% 9.0 % 05/29/2018 Cbc With Differential Ord2 [...] 2.05 K/ul 05/29/2018 Cbc With Differential Ord2 [place] ABS# 0.7 K/ul 05/29/2018 Cbc With Differential Ord2 Eos ABS# 0.2 K/ul 05/29/2018 Cbc With Differential Ord2 Baso ABS# 0.0 K/ul 05/29/2018 Tsh Ord6 TSH (3rd IS) 2.05 uIU/mL 05/29/2018 Lipid Ord30 CHOL 191 mg/dL 05/29/2018 Lipid Ord30 HDL 68.0 mg/dl 05/29/2018 Lipid Ord30 TRIG 138 mg/dL 05/29/2018 Lipid Ord30 LDL 95 mg/dL 05/29/2018 Lipid Ord30 C/HDL 2.8 Ratio 05/29/2018 Free T4 Wyj371 FREE T4 0.93 ng/dL 05/29/2018 Free T4 Yud454 FREE T4 0.90 ng/dL 09/12/2017 Tsh Ord6 hTSH II 1.98 uIU/mL 09/12/2017 Lipid Ord30 CHOL 213 mg/dL 09/12/2017 Lipid Ord30 HDL 68.0 mg/dl 09/12/2017 Lipid Ord30 TRIG 202 mg/dL 09/12/2017 Lipid Ord30 LDL 105 mg/dL 09/12/2017 Lipid Ord30 C/HDL 3.1 Ratio 09/12/2017 Comp Metabolic Wng420 NA 140 mEq/L 09/12/2017 Comp Metabolic Suy411 K 4.3 mEq/L 09/12/2017 Comp Metabolic Nod168 CL 99 mEq/L 09/12/2017 Comp Metabolic Oem142 CO2 33.0 mEq/L 09/12/2017 Comp Metabolic Wvg901 ANION GAP 12 09/12/2017 Comp Metabolic Uho087 GLUCOSE 92 mg/dL 09/12/2017 Comp Metabolic Fll408 Creat 0.7 mg/dL 09/12/2017 Comp Metabolic Ufn980 eGFR 84 ml/min/1.73m2 09/12/2017 Comp Metabolic Num150 BUN 18 mg/dL 09/12/2017 Comp Metabolic Kcx446 B/C Ratio 25.4 Ratio 09/12/2017 Comp Metabolic Mae133 CALCIUM 9.3 mg/dL 09/12/2017 Comp Metabolic Wap079 ALK PHOS 64 U/L 09/12/2017 Comp Metabolic Xqs630 AST(SGOT) 13 U/L 09/12/2017 Comp Metabolic Heb122 ALT(SGPT) 12 U/L 09/12/2017 Comp Metabolic Wpd863 BILI T 0.7 mg/dL 09/12/2017 Comp Metabolic Ivb481 ALBUMIN 4.0 g/dL 09/12/2017 Comp Metabolic Igb103 TPRO 6.3 g/dL 09/12/2017 Comp Metabolic Kur945 GLOB 2.3 g/dL 09/12/2017 Comp Metabolic Eov898 A/G Ratio 1.8 Ratio 09/12/2017 Comp Metabolic Mmf322 Osmo 281 mOsmo 09/12/2017 Cbc With Differential [...] 20.4 % 09/12/2017 Cbc With Differential Ord2 [place]% 8.7 % 09/12/2017 Cbc With Differential Ord2 MCH 29.3 pg 09/12/2017 Cbc With Differential Ord2 MCHC 30.2 pg 09/12/2017 Cbc With Differential Ord2 Eos% 2.2 % 09/12/2017 Cbc With Differential Ord2 PLT 381 K/ul 09/12/2017 Cbc With Differential Ord2 Baso% 0.5 % 09/12/2017 Cbc With Differential Ord2 RDW 14.9 % 09/12/2017 Cbc With Differential Ord2 Neut ABS# 9.11 K/ul 09/12/2017 Cbc With Differential Ord2 Lymph ABS# 2.72 K/ul 09/12/2017 Cbc With Differential Ord2 [place] ABS# 1.2 K/ul 09/12/2017 Cbc With Differential Ord2 Eos ABS# 0.3 K/ul 09/12/2017 Cbc With Differential Ord2 Baso ABS# 0.1 K/ul 09/12/2017 Tsh Ord6 hTSH II 1.56 uIU/mL 03/09/2016 Cbc With Differential Ord2 WBC 9.05 K/ul 03/09/2016 Cbc With Differential Ord2 RBC 4.03 M/ul 03/09/2016 Cbc With Differential Ord2 HGB 11.6 g/dl 03/09/2016 Cbc With Differential Ord2 Neut% 62.8 % 03/09/2016 Cbc With Differential Ord2 HCT 37.0 % 03/09/2016 Cbc With Differential Ord2 MCV 91.8 fl 03/09/2016 Cbc With Differential Ord2 Lymph% 26.3 % 03/09/2016 Cbc With Differential Ord2 [place]% 8.5 % 03/09/2016 Cbc With Differential Ord2 MCH 28.8 pg 03/09/2016 Cbc With Differential Ord2 MCHC 31.4 pg 03/09/2016 Cbc With Differential Ord2 Eos% 1.8 % 03/09/2016 Cbc With Differential Ord2 PLT 316 K/ul 03/09/2016 Cbc With Differential Ord2 Baso% 0.6 % 03/09/2016 Cbc With Differential Ord2 RDW 13.6 % 03/09/2016 Cbc With Differential Ord2 Neut ABS# 5.69 K/ul 03/09/2016 Cbc With Differential Ord2 Lymph ABS# 2.38 K/ul 03/09/2016 Cbc With Differential Ord2 [place] ABS# 0.8 K/ul 03/09/2016 Cbc With Differential Ord2 Eos ABS# 0.2 K/ul 03/09/2016 Cbc With Differential Ord2 Baso ABS# 0.1 K/ul 03/09/2016 Comp Metabolic Vvt796 NA 138 mEq/L 03/09/2016 Comp Metabolic Egi926 K 4.5 mEq/L 03/09/2016 Comp Metabolic Wcn235 CL 100 mEq/L 03/09/2016 Comp Metabolic Mfj626 CO2 33.0 mEq/L 03/09/2016 Comp Metabolic Rgy117 ANION GAP 10 03/09/2016 Comp Metabolic Uxs678 GLUCOSE 94 mg/dL 03/09/2016 Comp Metabolic Sru484 Creat 0.6 mg/dL 03/09/2016 Comp Metabolic Dxy487 eGFR 106 ml/min/1.73m2 03/09/2016 Comp Metabolic Pkb003 BUN 10 mg/dL 03/09/2016 Comp Metabolic Dva079 B/C Ratio 17.2 Ratio 03/09/2016 Comp Metabolic Vna738 CALCIUM 9.2 mg/dL 03/09/2016 Comp Metabolic Tgu473 ALK PHOS 64 U/L 03/09/2016 Comp Metabolic Mwo865 AST(SGOT) 20 U/L 03/09/2016 Comp Metabolic Wzm594 ALT(SGPT) 11 U/L 03/09/2016 Comp Metabolic Ecr617 BILI T 0.9 mg/dL 03/09/2016 Comp Metabolic Fsf879 ALBUMIN 4.0 g/dL 03/09/2016 Comp Metabolic Vcr831 TPRO 6.1 g/dL 03/09/2016 Comp Metabolic Jig678 GLOB 2.1 g/dL 03/09/2016 Comp Metabolic Rxy171 A/G Ratio 1.9 Ratio 03/09/2016 Comp Metabolic Wuk284 Osmo 274 mOsmo 03/09/2016 Free T4 Kiw389 FREE T4 0.90 ng/dL 03/09/2016 Lipid Ord30 [...] hTSH II 3.25 uIU/mL 09/07/2015 Free T4 Tjp205 FREE T4 0.79 ng/dL 09/07/2015 Comp Metabolic Kxd771 NA 137 mEq/L 09/07/2015 Comp Metabolic Nuh624 K 4.0 mEq/L 09/07/2015 Comp Metabolic Qpd404 CL 98 mEq/L 09/07/2015 Comp Metabolic Ftv831 CO2 30.0 mEq/L 09/07/2015 Comp Metabolic Bum667 ANION GAP 13 09/07/2015 Comp Metabolic Hdc405 GLUCOSE 101 mg/dL 09/07/2015 Comp Metabolic Wsj103 Creat 0.6 mg/dL 09/07/2015 Comp Metabolic Qlz787 eGFR 111 ml/min/1.73m2 09/07/2015 Comp Metabolic Nyh151 BUN 16 mg/dL 09/07/2015 Comp Metabolic Dec070 B/C Ratio 28.6 Ratio 09/07/2015 Comp Metabolic Tyd758 CALCIUM 9.4 mg/dL 09/07/2015 Comp Metabolic Lvo895 ALK PHOS 68 U/L 09/07/2015 Comp Metabolic Ano138 AST(SGOT) 16 U/L 09/07/2015 Comp Metabolic Abr392 ALT(SGPT) 12 U/L 09/07/2015 Comp Metabolic Cbs582 BILI T 0.9 mg/dL 09/07/2015 Comp Metabolic Jas717 ALBUMIN 4.1 g/dL 09/07/2015 Comp Metabolic Dwc873 TPRO 6.5 g/dL 09/07/2015 Comp Metabolic Esa236 GLOB 2.4 g/dL 09/07/2015 Comp Metabolic Zra449 A/G Ratio 1.7 Ratio 09/07/2015 Comp Metabolic Onn020 Osmo 275 mOsmo 09/07/2015 Cbc With Differential [...] Differential Ord2 RDW 14.4 % 09/07/2015 TSH 9988171 TSH 0.920 uIU/ML 08/28/2014 CBC 9093120 WBC 12.5 10e9/L 08/28/2014 CBC 7195115 RBC 3.44 10e12/L 08/28/2014 CBC 8317582 HGB 10.3 g/dL 08/28/2014 CBC 8538925 HCT DET 33.9 % 08/28/2014 CBC 6629970 MCV 98.5 fL 08/28/2014 CBC 5787899 MCH 29.9 pg 08/28/2014 CBC 6386073 MCHC 30.4 g/dL 08/28/2014 CBC 4214258 PLT 412 10e9/L 08/28/2014 CBC 9153674 MPV 10.2 fL 08/28/2014 CBC 6246359 NNEKA % 68.5 % 08/28/2014 CBC 6382277 LY % 20.8 % 08/28/2014 CBC 0030594 MON % 9.9 % 08/28/2014 CBC 9162125 EOS % 0.6 % 08/28/2014 CBC 1995469 BASO % 0.2 % 08/28/2014 CBC 7807057 RDW 15.8 % 08/28/2014 CBC 3325009 ABS NNEKA 8.56 10e9/L 08/28/2014 CBC 3697023 ABS LYMPH 2.60 10e9/L 08/28/2014 CBC 4915755 ABS MONO 1.24 10e9/L 08/28/2014 CBC 2839964 ABS EOS 0.08 10e9/L 08/28/2014 CBC 2308526 ABS BASO 0.03 10e9/L 08/28/2014 CBC 9466180 RDW-SD 55.4 fL 08/28/2014 GFR CALC 2316253 GFR AA >60 ML/MIN 08/28/2014 GFR CALC 2971801 GFR NON-AA >60 ML/MIN 08/28/2014 LIPID GRP HDL TEST 69 MG/DL 08/28/2014 LIPID GRP TRIG 158 MG/DL 08/28/2014 LIPID GRP TEST LDL 96 MG/DL 08/28/2014 LIPID GRP CHOL 197 MG/DL 08/28/2014 LIPID GRP RCHOL/HDL 2.86 RATIO 08/28/2014 LIPID GRP NON-HDL CH 128 MG/DL 08/28/2014 CHEM 14 5009106 AST 14 U/L 08/28/2014 CHEM 14 4505323 ALT 13 IU/L 08/28/2014 CHEM 14 8082211 BUN 15 MG/DL 08/28/2014 CHEM 14 6085509 ALBUMIN 4.2 GM/DL 08/28/2014 CHEM 14 2837165 CHLORIDE 98 MMOL/L 08/28/2014 CHEM 14 0407147 BILI TOT 1.2 MG/DL 08/28/2014 CHEM 14 7042305 ALK PHOS 68 U/L 08/28/2014 CHEM 14 5298838 SODIUM 137 MMOL/L 08/28/2014 CHEM 14 9594730 CREATININE 0.68 MG/DL 08/28/2014 CHEM 14 4503764 CALCIUM 9.1 MG/DL 08/28/2014 CHEM 14 7690777 POTASSIUM 3.7 MMOL/L 08/28/2014 CHEM 14 7084250 PROT TOT 6.2 GM/DL 08/28/2014 CHEM 14 5838147 GLUCOSE 91 MG/DL 08/28/2014 CHEM 14 1318874 BICARB 31 MMOL/L 08/28/2014 CHEM 14 2050022 ANION GAP 8 MEQ/L 08/28/2014 FREE T4 6868542 FREE T4 1.44 NG/DL 08/28/2014 LIPID GRP HDL TEST 73 MG/DL 04/16/2014 LIPID GRP TRIG 131 MG/DL 04/16/2014 LIPID GRP 0664552 TEST LDL 99 MG/DL 04/16/2014 LIPID GRP CHOL 198 MG/DL 04/16/2014 LIPID GRP RCHOL/HDL 2.71 RATIO 04/16/2014 LIPID GRP NON-HDL CH 125 MG/DL 04/16/2014 CHEM 14 7422097 AST 17 U/L 04/14/2014 CHEM 14 5442915 ALT 17 IU/L 04/14/2014 CHEM 14 9851963 BUN 15 MG/DL 04/14/2014 CHEM 14 2588829 ALBUMIN 4.3 GM/DL 04/14/2014 CHEM 14 7290144 CHLORIDE 96 MMOL/L 04/14/2014 CHEM 14 2286740 BILI TOT 0.9 MG/DL 04/14/2014 CHEM 14 0211673 ALK PHOS 65 U/L 04/14/2014 CHEM 14 1943306 SODIUM 135 MMOL/L 04/14/2014 CHEM 14 3619149 CREATININE 0.69 MG/DL 04/14/2014 CHEM 14 3820374 CALCIUM 9.5 MG/DL 04/14/2014 CHEM 14 1411315 POTASSIUM 4.1 MMOL/L 04/14/2014 CHEM 14 8395990 PROT TOT 6.6 GM/DL 04/14/2014 CHEM 14 9931113 GLUCOSE 104 MG/DL 04/14/2014 CHEM 14 0623790 BICARB 34 MMOL/L 04/14/2014 CHEM 14 3498505 ANION GAP 5 MEQ/L 04/14/2014 A1C HPLC 6651133 A1C HPLC 08097-6 5.0 % 04/14/2014 TSH 8073301 TSH 2.140 uIU/ML 04/14/2014 FREE T4 2078842 FREE T4 1.56 NG/DL 04/14/2014 GFR CALC 6651423 GFR AA >60 ML/MIN 04/14/2014 GFR CALC 4058714 GFR NON-AA >60 ML/MIN 04/14/2014 CBC 8965383 WBC 12.8 10e9/L 04/14/2014 CBC 0464363 RBC 4.44 10e12/L 04/14/2014 CBC 2946831 HGB 13.2 g/dL 04/14/2014 CBC 0407670 HCT DET 41.4 % 04/14/2014 CBC 3370617 MCV 93.2 fL 04/14/2014 CBC 5939857 MCH 29.7 pg 04/14/2014 CBC 9947198 MCHC 31.9 g/dL 04/14/2014 CBC 0518278 PLT 383 10e9/L 04/14/2014 CBC 8605684 MPV 10.1 fL 04/14/2014 CBC 3587379 NNEKA % 65.5 % 04/14/2014 CBC 8296605 LY % 23.0 % 04/14/2014 CBC 0366070 MON % 9.9 % 04/14/2014 CBC 9821484 EOS % 1.3 % 04/14/2014 CBC 7661122 BASO % 0.3 % 04/14/2014 CBC 3907840 RDW 13.7 % 04/14/2014 CBC 2714057 ABS NNEKA 8.38 10e9/L 04/14/2014 CBC 4583636 ABS LYMPH 2.94 10e9/L 04/14/2014 CBC 6286674 ABS MONO 1.27 10e9/L 04/14/2014 CBC 5503403 ABS EOS 0.17 10e9/L 04/14/2014 CBC 6257833 ABS BASO 0.04 10e9/L 04/14/2014 CBC 0116780 RDW-SD 45.9 fL 04/14/2014 A1C HPLC 7849564 A1C HPLC 36486-9 4.9 % 11/13/2013 CHEM 14 3052426 AST 15 U/L 11/12/2013 CHEM 14 7710714 ALT 14 IU/L 11/12/2013 CHEM 14 6934237 BUN 14 MG/DL 11/12/2013 CHEM 14 3649970 ALBUMIN 4.3 GM/DL 11/12/2013 CHEM 14 0092503 CHLORIDE 101 MMOL/L 11/12/2013 CHEM 14 8303812 BILI TOT 0.9 MG/DL 11/12/2013 CHEM 14 3994814 ALK PHOS 67 U/L 11/12/2013 CHEM 14 0089099 SODIUM 139 MMOL/L 11/12/2013 CHEM 14 2333039 CREATININE 0.67 MG/DL 11/12/2013 CHEM 14 6990734 CALCIUM 9.5 MG/DL 11/12/2013 CHEM 14 9902064 POTASSIUM 4.1 MMOL/L 11/12/2013 CHEM 14 6518677 PROT TOT 6.5 GM/DL 11/12/2013 CHEM 14 1668436 GLUCOSE 102 MG/DL 11/12/2013 CHEM 14 2750832 BICARB 30 MMOL/L 11/12/2013 CHEM 14 2686157 ANION GAP 8 MEQ/L 11/12/2013 GFR CALC 2010781 GFR AA >60 ML/MIN 11/12/2013 GFR CALC 8118299 GFR NON-AA >60 ML/MIN 11/12/2013 TSH 5921602 TSH 2.445 uIU/ML 11/12/2013 FREE T4 2034018 FREE T4 1.09 NG/DL 11/12/2013 CBC 2343896 WBC 7.6 10e9/L 11/12/2013 CBC 9594279 RBC 4.42 10e12/L 11/12/2013 CBC 1467385 HGB 13.1 g/dL 11/12/2013 CBC 5027144 HCT DET 41.2 % 11/12/2013 CBC 0697006 MCV 93.2 fL 11/12/2013 CBC 4351342 MCH 29.6 pg 11/12/2013 CBC 0645339 MCHC 31.8 g/dL 11/12/2013 CBC 5398163 PLT 314 10e9/L 11/12/2013 CBC 4322950 MPV 10.4 fL 11/12/2013 CBC 8368361 NNEKA % 59.8 % 11/12/2013 CBC 0726892 LY % 28.1 % 11/12/2013 CBC 6857953 MON % 9.5 % 11/12/2013 CBC 3255342 EOS % 1.8 % 11/12/2013 CBC 2596444 BASO % 0.8 % 11/12/2013 CBC 4646601 RDW 13.8 % 11/12/2013 CBC 8744019 ABS NNEKA 4.54 10e9/L 11/12/2013 CBC 9550361 ABS LYMPH 2.14 10e9/L 11/12/2013 CBC 4431629 ABS MONO 0.72 10e9/L 11/12/2013 CBC 4392701 ABS EOS 0.14 10e9/L 11/12/2013 CBC 3143610 ABS BASO 0.06 10e9/L 11/12/2013 CBC 7779915 RDW-SD 46.0 fL 11/12/2013 LIPID GRP HDL TEST 66 MG/DL 11/12/2013 LIPID GRP TRIG 130 MG/DL 11/12/2013 LIPID GRP TEST LDL 108 MG/DL 11/12/2013 LIPID GRP CHOL 200 MG/DL 11/12/2013 LIPID GRP RCHOL/HDL 3.03 RATIO 11/12/2013 HS ENE ZOS 1931577 HS ENE ZOS IMMUNE 04/04/2013 A1C 5568047 A1C HPLC 59182-3 5.2 % 04/03/2013 GFR CALC 6008931 GFR AA >60 ML/MIN 03/31/2013 GFR CALC 2069785 GFR NON-AA >60 ML/MIN 03/31/2013 TSH 5897840 TSH 2.689 uIU/ML 03/31/2013 LIPID GRP HDL TEST 63 MG/DL 03/31/2013 LIPID GRP TRIG 157 MG/DL 03/31/2013 LIPID GRP TEST LDL 98 MG/DL 03/31/2013 LIPID GRP CHOL 192 MG/DL 03/31/2013 LIPID GRP RCHOL/HDL 3.05 RATIO 03/31/2013 FREE T4 0885790 FREE T4 1.19 NG/DL 03/31/2013 CHEM 14 3963011 AST 16 U/L 03/31/2013 CHEM 14 3604055 ALT 12 IU/L 03/31/2013 CHEM 14 4293976 BUN 17 MG/DL 03/31/2013 CHEM 14 5240749 ALBUMIN 4.5 GM/DL 03/31/2013 CHEM 14 3848180 CHLORIDE 98 MMOL/L 03/31/2013 CHEM 14 6032392 BILI TOT 0.7 MG/DL 03/31/2013 CHEM 14 3023320 ALK PHOS 53 U/L 03/31/2013 CHEM 14 7649039 SODIUM 137 MMOL/L 03/31/2013 CHEM 14 9757326 CREATININE 0.66 MG/DL 03/31/2013 CHEM 14 9040231 CALCIUM 9.6 MG/DL 03/31/2013 CHEM 14 1715185 POTASSIUM 4.2 MMOL/L 03/31/2013 CHEM 14 8969196 PROT TOT 6.7 GM/DL 03/31/2013 CHEM 14 8416331 GLUCOSE 101 MG/DL 03/31/2013 CHEM 14 4264466 BICARB 33 MMOL/L 03/31/2013 CHEM 14 4957099 ANION GAP 6 MEQ/L 03/31/2013 CBC 9507957 WBC 7.5 10e9/L 03/31/2013 CBC 2389729 RBC 4.39 10e12/L 03/31/2013 CBC 7596796 HGB 13.0 g/dL 03/31/2013 CBC 4220980 HCT DET 40.2 % 03/31/2013 CBC 0555987 MCV 91.6 fL 03/31/2013 CBC 7836687 MCH 29.6 pg 03/31/2013 CBC 9689912 MCHC 32.3 g/dL 03/31/2013 CBC 9279815 PLT 305 10e9/L 03/31/2013 CBC 4982901 MPV 10.4 fL 03/31/2013 CBC 5097662 NNEKA % 56.8 % 03/31/2013 CBC 0135521 LY % 30.3 % 03/31/2013 CBC 2013294 MON % 9.8 % 03/31/2013 CBC 4494173 EOS % 2.3 % 03/31/2013 CBC 8667904 BASO % 0.8 % 03/31/2013 CBC 6930921 RDW 13.2 % 03/31/2013 CBC 5668332 ABS NNEKA 4.26 10e9/L 03/31/2013 CBC 9483037 ABS LYMPH 2.27 10e9/L 03/31/2013 CBC 7941708 ABS MONO 0.74 10e9/L 03/31/2013 CBC 2795874 ABS EOS 0.17 10e9/L 03/31/2013 CBC 4182030 ABS BASO 0.06 10e9/L 03/31/2013 CBC 6834153 RDW-SD 43.2 fL 03/31/2013 LIPID GRP HDL TEST 49 MG/DL 09/11/2012 LIPID GRP TRIG 134 MG/DL 09/11/2012 LIPID GRP TEST LDL 81 MG/DL 09/11/2012 LIPID GRP CHOL 157 MG/DL 09/11/2012 LIPID GRP RCHOL/HDL 3.20 RATIO 09/11/2012 TSH 3450822 TSH 2.118 uIU/ML 09/11/2012 CBC 8462906 WBC 7.5 10e9/L 09/11/2012 CBC 0655480 RBC 3.99 10e12/L 09/11/2012 CBC 0469154 HGB 11.7 g/dL 09/11/2012 CBC 9767648 HCT DET 37.7 % 09/11/2012 CBC 1894394 MCV 94.5 fL 09/11/2012 CBC 9387756 MCH 29.3 pg 09/11/2012 CBC 2188957 MCHC 31.0 g/dL 09/11/2012 CBC 8664807 PLT 384 10e9/L 09/11/2012 CBC 8785026 MPV 11.0 fL 09/11/2012 CBC 0089971 NNEKA % 51.7 % 09/11/2012 CBC 4860065 LY % 35.2 % 09/11/2012 CBC 4099883 MON % 10.4 % 09/11/2012 CBC 7368141 EOS % 2.3 % 09/11/2012 CBC 3767084 BASO % 0.4 % 09/11/2012 CBC 1319454 RDW 14.2 % 09/11/2012 CBC 6200648 ABS NNEKA 3.88 10e9/L 09/11/2012 CBC 3049352 ABS LYMPH 2.64 10e9/L 09/11/2012 CBC 7533089 ABS MONO 0.78 10e9/L 09/11/2012 CBC 9528850 ABS EOS 0.17 10e9/L 09/11/2012 CBC 8979262 ABS BASO 0.03 10e9/L 09/11/2012 CBC 0542295 RDW-SD 47.1 fL 09/11/2012 CHEM 14 3516964 AST 16 U/L 09/11/2012 CHEM 14 8959603 ALT 15 IU/L 09/11/2012 CHEM 14 4364208 BUN 11 MG/DL 09/11/2012 CHEM 14 2818546 ALBUMIN 4.2 GM/DL 09/11/2012 CHEM 14 4032040 CHLORIDE 101 MMOL/L 09/11/2012 CHEM 14 7187430 BILI TOT 0.8 MG/DL 09/11/2012 CHEM 14 2478488 ALK PHOS 57 U/L 09/11/2012 CHEM 14 4221233 SODIUM 141 MMOL/L 09/11/2012 CHEM 14 1499677 CREATININE 0.62 MG/DL 09/11/2012 CHEM 14 4212397 CALCIUM 9.5 MG/DL 09/11/2012 CHEM 14 1420279 POTASSIUM 4.7 MMOL/L 09/11/2012 CHEM 14 8131878 PROT TOT 6.6 GM/DL 09/11/2012 CHEM 14 8415870 GLUCOSE 90 MG/DL 09/11/2012 CHEM 14 1248065 BICARB 32 MMOL/L 09/11/2012 CHEM 14 3034319 ANION GAP 8 MEQ/L 09/11/2012 A1C HPLC 5335592 A1C HPLC 29381-0 4.5 % 09/11/2012 GFR CALC 5288447 GFR AA >60 ML/MIN 09/11/2012 GFR CALC 7286290 GFR NON-AA >60 ML/MIN 09/11/2012 FREE T4 5265586 FREE T4 1.30 NG/DL 09/11/2012 GFR CALC 4699545 GFR AA >60 ML/MIN 04/16/2012 GFR CALC 6162463 GFR NON-AA >60 ML/MIN 04/16/2012 CBC 2301906 WBC 8.5 10e9/L 04/16/2012 CBC 7744912 RBC 3.98 10e12/L 04/16/2012 CBC 1709677 HGB 11.5 g/dL 04/16/2012 CBC 4014093 HCT DET 36.7 % 04/16/2012 CBC 1224810 MCV 92.2 fL 04/16/2012 CBC 5721818 MCH 28.9 pg 04/16/2012 CBC 9790709 MCHC 31.3 g/dL 04/16/2012 CBC 1627973 PLT 321 10e9/L 04/16/2012 CBC 9643289 MPV 10.2 fL 04/16/2012 CBC 8128105 NNEKA % 64.3 % 04/16/2012 CBC 5360774 LY % 24.3 % 04/16/2012 CBC 2543639 MON % 9.0 % 04/16/2012 CBC 2530294 EOS % 1.9 % 04/16/2012 CBC 6357966 BASO % 0.5 % 04/16/2012 CBC 0866542 RDW 13.7 % 04/16/2012 CBC 9985499 ABS NNEKA 5.47 10e9/L 04/16/2012 CBC 5396881 ABS LYMPH 2.07 10e9/L 04/16/2012 CBC 3694327 ABS MONO 0.77 10e9/L 04/16/2012 CBC 9682451 ABS EOS 0.16 10e9/L 04/16/2012 CBC 3546430 ABS BASO 0.04 10e9/L 04/16/2012 CBC 5369943 RDW-SD 44.6 fL 04/16/2012 BMP 9878266 GLUCOSE 93 MG/DL 04/16/2012 BMP 2893588 CREATININE 0.64 MG/DL 04/16/2012 BMP 3286076 BUN 12 MG/DL 04/16/2012 BMP 1466710 SODIUM 139 MMOL/L 04/16/2012 BMP 4088368 POTASSIUM 4.1 MMOL/L 04/16/2012 BMP 6116116 CHLORIDE 99 MMOL/L 04/16/2012 BMP 6362143 BICARB 32 MMOL/L 04/16/2012 BMP 9355218 ANION GAP 8 MEQ/L 04/16/2012 BMP 4463147 CALCIUM 9.8 MG/DL 04/16/2012 URINALYSIS NONAUTO W/O SCOPE 33919 Specific [place] 1.015 DateTime(Free Text in Aprima) URINALYSIS NONAUTO W/O SCOPE 11589 PH 6.0 DateTime(Free Text in Aprima) URINALYSIS NONAUTO W/O SCOPE 45664 GLUCOSE neg DateTime( Free Text in Aprima) URINALYSIS NONAUTO W/O SCOPE 70607 Protein neg DateTime( Free Text in Apr[employer]) URINALYSIS NONAUTO W/O SCOPE 47738 Blood 1+ DateTime(Free Text in Apr[employer]) URINALYSIS NONAUTO W/O SCOPE 97468 Bilirubin neg DateTime(Free Text in Apr[employer]) URINALYSIS NONAUTO W/O SCOPE 15621 Ketones neg DateTime( Free Text in Apr[employer]) URINALYSIS NONAUTO W/O SCOPE 98835 Urobilinogen neg DateTime(Free Text in Apr[employer]) URINALYSIS NONAUTO W/O SCOPE 15917 Nitrite positive DateTime(Free Text in Apr[employer]) URINALYSIS NONAUTO W/O SCOPE 61219 Leukocytes 1+ DateTime(Free Text in Aprima) UA 83423 Specific [place] 1.015 DateTime(Free Text in Aprima ) UA 19829 PH 5 DateTime(Free Text in Aprima) UA 38175 GLUCOSE neg DateTime(Free Text in Aprima) UA 68859 Protein neg DateTime(Free Text in Aprima) UA 86828 Blood neg DateTime(Free Text in Aprima) UA 46544 Bilirubin neg DateTime(Free Text in Aprima) UA 62933 Ketones neg DateTime(Free Text in Aprima) UA 18409 Urobilinogen neg DateTime(Free Text in Aprima) UA 62856 Nitrite neg DateTime(Free Text in Aprima) UA 70375 Leukocytes neg DateTime(Free Text in Aprima) URINALYSIS NONAUTO W/O SCOPE 67470 Specific [place] 1.010 DateTime(Free Text in Apr[employer]) URINALYSIS NONAUTO W/O SCOPE 52225 PH 5.0 DateTime(Free Text in Aprima) URINALYSIS NONAUTO W/O SCOPE 35912 GLUCOSE NEG DateTime( Free Text in Apr[employer]) URINALYSIS NONAUTO W/O SCOPE 61458 Protein NEG DateTime( Free Text in Apr[employer]) URINALYSIS NONAUTO W/O SCOPE 41628 Blood NEG DateTime(Free Text in Apr[employer]) URINALYSIS NONAUTO W/O SCOPE 15667 Bilirubin NEG DateTime(Free Text in Apr[employer]) URINALYSIS NONAUTO W/O SCOPE 74691 Ketones NEG DateTime( Free Text in [employer])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 [facility] CPT-4: 41237 09/20/2011 [id number] EST. PATIENT, LEVEL IV Diagnosis: Dysuria[ICD9: 788.1] Diagnosis: ESSENTIAL HYPERTENSION[SNOMED: 52194054] Diagnosis: Anxiety[ICD9: 300.00] Concepción Flanagan MD, [facility] CPT-4: 18742 09/06/2011 ([id number]) 74603 EST. PATIENT, LEVEL IV Diagnosis: LUMBAGO[ICD9: 724.2] Diagnosis: ESSENTIAL HYPERTENSION[SNOMED: 78246728] Concepción Flanagan MD, [facility] CPT-4: 23647 08/30/2011 [id number] EST. PATIENT, LEVEL III Diagnosis: ACUTE SINUSITIS[ICD9: 461.9] Diagnosis: Urinary frequency[ICD9: 788.41] Chaparrita Flanagan MD, [facility] CPT-4: 16976 08/23/2011 [id number] EST. PATIENT, LEVEL III Diagnosis: Lesion of labia[ICD9: 624.8] Chaparrita Flanagan MD, [facility] CPT-4: 37557 08/09/2011 72863 EST. PATIENT, LEVEL IV Diagnosis: HYPOTHYROIDISM[ICD9: 244.9] Diagnosis: HYPERLIPIDEMIA[ICD9: 272.4] Diagnosis: BP (high blood pressure)[SNOMED: 81424030] Diagnosis: Knee pain, bilateral[ICD9: 719.46] Diagnosis: ESOPHAGEAL REFLUX[ICD9: 530.81] Concepción Flanagan MD, [facility] CPT- 4: 31436 05/04/2011 [id number] EST. PATIENT, LEVEL III Diagnosis: ACUTE URI[ICD9: 465.9] Diagnosis: Asthma[ICD9: 493.90] Diagnosis: Esophageal reflux[ICD9: 530.81] Chaparrita Flanagan MD, [facility] CPT-4: 50440 04/19/2011 Plan of Care Planned Activity Notes [...] this time. 09/03/2018 Appointment: Concepción Flanagan WPtel: [address] [place], [place] [phone] (15 min) Moderate 09/03/2018 Patient Education: Patient [...] and back. 05/29/2018 Appointment: Concepción Flanagan WPtel: [facility] (15 min) Moderate 05/29/2018 Patient Education: Patient Medication Summary Completed 05/29/2018 Care Plan: Referral Order SNOMED-CT : 641694261 Pending 05/29/2018 Visit Plan: Wound Instructions - [...] process. 02/06/2018 App[facility]ment: [phone] [facility] (15 min) Moderate 02/06/2018 Patient Education: Patient [...] medications. 01/23/2018 Appointment: Concepción Flanagan WPtel: [phone] [facility] (15 min) Moderate 01/23/2018 Patient Education: Patient Medication Summary Completed 01/23/2018 Visit Plan: Cough - improved - sinusitis resolved. 09/26/2017 Appointment: Concepción Flanagan WPtel: [phone] [facility] (15 min) Moderate 09/26/2017 Patient Education: Patient Medication Summary Completed 09/26/2017 Visit Plan: Acute Maxillary Sinusitis - if not improving - pt would like to see an ENT - Hortensia Tompkins in [place]. Treatment as follows: cefdinir - antibiotic twice [...] hydrocodone. 09/12/2017 Appointment: Concepción Flanagan WPtel: [phone] [facility] (15 min) Moderate 09/12/2017 Patient Education: Patient [...] spray. 08/31/2017 Appointment: Hayley London WPtel: [phone] [facility] (30 min) Complex 08/31/2017 Patient Education: Patient Medication Summary Completed 08/31/2017 Visit Plan: URI - Pt advised to increase fluids, vitamin C. Discussed natural and expected course of this diagnosis and need to alert me if symptoms do not follow expected course, or if any worse. RX sent to patient' s pharmacy. 08/09/2017 Appointment: Chaparrita Arrieta [facility]Ptel[phone] [facility] [place] (30 min) Complex 08/09/2017 Patient [...] hydrocodone. 05/07/2017 Appointment: Concepción Flanagan WPtel: [phone] [facility] [place] (15 min) Moderate 05/07/2017 Patient Education: [...] surrogate. 04/12/2017 Appointment: Hay[facility] London [facility]Ptel[facility] [phone] [facility] [facility] - Annual Wellness Visit 04/12/2017 Patient Education: Patient Medication Summary Completed 04/12/2017 Appointment: Nurse Visit 02/15/2017 Patient Education: Patient Medication Summary Completed 02/15/2017 Visit Plan: Aknob-umdbywcpff-kxvdv zpack when finished with cipro-follow up chest [...] day-follow up Sunday02/02/2017 Appointment: Chaparrita Arrieta WPtel: [facility] (15 min) Moderate 02/02/2017 Patient Education: Patient Medication Summary Completed 02/02/2017 Patient Education: Obesity Completed 02/02/2017 Visit Plan: Sinusitis - Pt has acute infection - pain in face, maxillary region, Pt informed to use decongestant, RX given to patient, sinus rinses also recommended. Call if symptoms do not show improvement. 01/15/2017 Appointment: Chaparrita Arrieta WPtel: [facility] (10 min) Simple 01/15/2017 Patient Education: [...] shot today 01/04/2017 Appointment: Concepción Flanagan WPtel: [phone] [facility] (15 min) Moderate 01/04/2017 Patient Education: Patient [...] medication (lexapro). 09/07/2016 Appointment: Concepción Flanagan WPtel: [phone] [facility] (30 min) Complex 09/07/2016 Patient Education: Patient [...] at home. 07/06/2016 Appointment: Concepción Flanagan WPtel: [facility]6 [facility] (15 min) Moderate 07/06/2016 Patient Education: Patient [...] TWICE DAILY 06/08/2016 Appointment: Concepción Flanagan WPtel: [address] [facility] [place] (15 min) Moderate 06/08/2016 Patient Education: Patient [...] edema. 04/06/2016 Appointment: Concepción Flanagan WPtel: [phone] [facility] (15 min) Moderate 04/06/2016 Patient Education: Patient [...] for Mikala. 01/18/2016 Appointment: Concepción Flanagan WPtel: [address] [place] [address] (15 min) Moderate 01/18/2016 Patient Education: Patient [...] fatigue improved-will fax today's note to [employer] for re-certification of oxygen. 09/09/2015 Visit Plan: [...] fatigue improved-will fax today's note to [employer] for re-certification of oxygen. 09/09/2015 Appointment: (15 [...] discuss with her son who is a [employer] - and consider re-evaluation for nasal pillows with her cpap since she could not tolerate a face mask cpap in the past. 12/25/2014 Appointment: Concepción Flanagan WPtel: [facility]5 [facility] Follow up 12/25/2014 Patient Education: Patient Medication [...] at home. 10/13/2014 Appointment: Concepción Flanagan WPtel: [phone] [facility] Follow up 10/13/2014 Patient Education: Patient [...] . 08/28/2014 Appointment: Concepción Flanagan WPtel: [phone] [facility] Follow up 08/28/2014 Patient Education: Patient [...] creatinine. 04/16/2014 Appointment: Concepción Flanagan WPtel: [phone] [facility] Follow up 04/16/2014 Patient Education: Patient Medication Summary Completed 04/16/2014 Patient Education: Patient Medication Summary Completed 04/14/2014 Patient Education: Hypertension Completed 04/14/2014 Visit Plan: Wound Instructions - Pt was instruced to keep the wound clean, wash with antibacterial soap, use triple antibiotic ointment, call if redness, pustular drainage, or any other acute conerns. 01/27/2014 Appointment: Concepción Flanagan WPtel: [phone] [facility] Surgical Procedure 01/27/2014 Patient Education: Patient Medication [...] home eval. 01/21/2014 Appointment: Concepción Flanagan WPtel: [facility] Follow up 01/21/2014 Patient Education: Patient Medication Summary Completed 01/21/2014 Patient Education: Hypertension Completed 01/21/2014 Visit Plan: Hypotension - Bradycardia - pt to stop her metroprolol - check bp and heart rate twice daily and monitor symptoms. Call if bp uncontrolled- or heart rate to elevated. 01/07/2014 Appointment: Concepción Flanagan WPtel: [facility] Follow up 01/07/2014 Patient Education: Hypertension Completed [...] and swallow 11/12/2013 Appointment: Chaparrita Arrieta WPtel[facility] [phone] [phone] [facility] 11/12/2013 Patient Education: Patient Medication Summary Completed 11/12/2013 Patient Education: Hypertension Completed 11/12/2013 Visit Plan: Sinusitis - Pt has acute infection - pain in face, maxillary region, Pt informed to use decongestant, RX given to patient, sinus rinses also recommended. Call if symptoms do not show improvement. 10/09/2013 Appointment: Chaparrita Arrieta WPtel: [phone] [phone] [facility] 10/09/2013 Patient Education: Patient Medication Summary Completed [...] check UA 04/03/2013 Appointment: Concepción Flanagan WPtel: [facility]3 [facility] Follow up 04/03/2013 Patient Education: Patient Medication Summary Completed 04/03/2013 Patient Education: Hypertension Completed 04/03/2013 Patient Education: Patient Medication Summary Completed 03/31/2013 Patient Education: Hypertension Completed 03/31/2013 Visit Plan: ua performed - sent for culture if indicated. 03/21/2013 Appointment: Concepción Flanagan WPtel: [phone] [facility] Lab Draw 03/21/2013 Patient Education: Patient [...] peripheral edema. 01/06/2013 Appointment: Concepción Flanagan WPtel: [phone] [facility] Follow up 01/06/2013 Patient Education: Patient Medication Summary Completed 01/06/2013 Patient Education: Hypertension Completed 01/06/2013 Visit Plan: Xeogyzpqp-Pasgxi-ejpivtaa not well controlled- KENALOG injection today in [...] peripheral edema. 10/28/2012 Appointment: Concepción Flanagan WPtel: [address] [place], [place] [phone] Follow up 10/28/2012 Patient Education: Patient Medication [...] treatment recommendations. 09/30/2012 Appointment: Concepción Flanagan WPtel: [facility]5 [facility] [place] Follow up 09/30/2012 Patient Education: Patient Medication Summary Completed 09/30/2012 Patient Education: Hypertension Completed 09/30/2012 Appointment: Concepción Flanagan WPtel: [phone] [facility] [place] Lab Draw 09/11/2012 Patient Education: Patient [...] resolved 08/14/2012 Appointment: Concepción Flanagan WPtel: [address] [place], [place] [phone] Follow up 08/14/2012 Patient Education: Patient Medication Summary Completed 08/14/2012 Patient Education: Hypertension Completed 08/14/2012 Visit Plan: Cellulitis - start with generic Bactrim DS as directed, return to clinic as previously directed, call for acute change in symptoms, worsening redness, warmth, discharge. 08/05/2012 Appointment: Concepción Flanagan WPtel: [address] [place], [place] [phone] Follow up 08/05/2012 Patient Education: Patient Medication [...] stools. 07/15/2012 Appointment: Concepción Flanagan WPtel: [address] [place], [place] [phone] [facility] follow up 07/15/2012 Patient Education: Patient Medication Summary Completed 07/15/2012 Patient Education: Hypertension Completed 07/15/2012 Visit Plan: Subungual discoloratiion of toenail- June 10 pt is to see Dr[address] Bee - I have discussed the case with the pt and Dr. bee and she will likely have a biopsy of the digit and avulsion of the nail. 05/27/2012 Appointment: Concepción Flanagan WPtel: [address] [place], [place] [phone] [place] Other 05/27/2012 Patient Education: Patient Medication Summary Completed 05/27/2012 Appointment: Chaparrita Arrieta WPtel: [facility]5 [phone] Follow up 05/16/2012 Visit Plan: Obesity [...] Influenza vaccine 05/03/2012 Appointment: Chaparrita Arrieta WPtel: [facility]5 [phone] Follow up 05/03/2012 Patient Education: Patient Medication Summary Completed 05/03/2012 Visit Plan: Wound Instructions - Pt was instruced to keep the wound clean, wash with antibacterial soap, use triple antibiotic ointment, call if redness, pustular drainage, or any other acute conerns. 04/23/2012 Appointment: Concepción Flanagan WPtel: [facility]5 [facility] Surgical Procedure 04/23/2012 Patient Education: Patient Medication Summary Completed 04/23/2012 Appointment: Concepción Flanagan WPtel: [facility]5 [facility] Lab Draw 04/16/2012 Patient Education: Patient [...] readings at home. Recommend follow up with animal rehabilitator for clearance before knee surgery. Will get [...] to thighs. 03/25/2012 Appointment: Concepción Flanagan WPtel: [facility]3 [facility] [place] Other 03/25/2012 Patient Education: Patient Medication Summary [...] of lesion. 03/12/2012 Appointment: Chaparrita Arrieta WPtel[phone] [facility] Other [...] at home. 01/23/2012 Appointment: Concepción Flanagan WPtel: [facility] [address] Other 01/23/2012 Patient Education: Patient Medication Summary Completed 01/23/2012 Patient Education: High Blood Pressure: Essential Hypertension Completed 2011 Visit Plan: Breast hgjz-pfbc-lugnxpunl natural and expected course of this diagnosis and to alert me if symptoms do not follow expected course, or if any worse. Plan for diagnostic mammogram, in meantime, instructed patient to get more supportive bra, use anti-inflammatories and monitor symptoms. Patient verbalized understanding of plan. 01/12/2012 Appointment: Chaparrita Arrieta WPtel: [facility]5 [place] [phone] Other 01/12/2012 Patient Education: Patient [...] current medications. 12/25/2011 Appointment: Concepción Flanagan WPtel: [phone] [facility] Other 12/25/2011 Patient Education: Patient Medication Summary [...] SOCKS. 12/04/2011 Appointment: Concepción Flanagan WPtel: [phone] [place] Other 12/04/2011 Patient Education: Patient Medication Summary Completed 12/04/2011 Patient Education: High Blood Pressure: Essential Hypertension Completed 2011 Appointment: Chaparrita Arrieta WPtel: [phone] [phone] [place] Lab Draw 12/01/2011 Patient Education: Patient Medication Summary Completed 12/01/2011 Appointment: Concepción Flanagan WPtel: [phone] [facility] [place] Lab Draw 11/20/2011 Patient Education: Patient [...] acutely worsen. 09/20/2011 Appointment: Concepción Flanagan WPtel: [facility]2 [facility] Other 09/20/2011 Patient Education: Patient Medication Summary Completed 09/20/2011 Patient Education: High Blood Pressure: Essential Hypertension Completed 2011 Appointment: Concepción Flanagan WPtel: [facility] [place] Other 09/13/2011 Visit Plan: Hypertension - The [...] benefits of treament with the above medications. Umpqtdx-jdzofmzq-FY negative 09/06/2011 Appointment: Chaparrita Arrieta WPtel: [phone] Other 09/06/2011 Patient Education: Patient Medication Summary [...] they worsen. 08/30/2011 Appointment: Concepción Flanagan WPtel: [address] [place] [address] Other 08/30/2011 Patient Education: Patient Medication Summary [...] patient's pharmacy. 08/23/2011 Appointment: Chaparrita Arrieta WPtel: [address] [place], [place] [phone] [place] Other 08/23/2011 Patient Education: Patient Medication Summary Completed 08/23/2011 Visit Plan: Labial cyst-discussed natural and expected course of this diagnosis and to alert me if symtpoms do not follow expected course, or if any worse. Patient and verbalized understanding. 08/09/2011 Appointment: Chaparrita Arrieta WPtel: [address] [place], [place] [phone] [place] Other 08/09/2011 Patient Education: Patient Medication Summary [...] not improving. 05/04/2011 Appointment: Concepción Flanagan WPtel: [facility] [place] Other 05/04/2011 Patient Education: Patient [...] 40mg daily. 04/19/2011 Appointment: Chaparrita Arrieta WPtel: [phone] [facility] [place] Other 04/19/2011 Patient Education: Patient [...] further attempt to reduce peripheral edema. . ua performed - sent for culture if indicated. . continue with benicar 40mg, and increase her diltiazem to 240mg daily Use your albuterol inhaler 1-2 puffs every 4-6 hours as needed for cough/SOA. Call if your symptoms do not improve, or if any worse.. Vvepfxnqc-Evreve-arjnwjct not well controlled-KENALOG injection today in the office-use albuterol as needed. Instructed patient to continue with singulair daily and call if symptoms do not improve, or worsen. . Obesity - chronic issue with this [...] like to see an ENT - Hortensia oTmpkins in [place]. Treatment as follows: cefdinir - antibiotic twice [...] of over-medication. Allergies - kenalog shot today Recommend diagnostic mammogram with ultrasound if needed Get supportive bra and make sure your breasts are well suppported. Recommend aleve twice daily and monitor symptoms. . Breast takg-zptu-sxvnehypy natural and expected course of this diagnosis and to alert me if symptoms do not follow expected course, or if any worse. Plan for diagnostic mammogram, in meantime, instructed patient to get more supportive bra, use anti- inflammatories and monitor symptoms. Patient verbalized understanding of plan. . Sinusitis - Pt has acute infection - pain in face, maxillary region, Pt informed to use decongestant, RX given to patient, sinus rinses also recommended. Call if symptoms do not show improvement. . Cerumen Impaction - The impacted cerumen [...] keeping patient stabilized during the removal process. MIRALAX TO BE STARTED AND TAKEN DAILY [...] supplier come out to do home eval. stop metoprolol blood pressure and heart rate check twice daily . Hypotension - Bradycardia - pt to stop her metroprolol - check bp and heart rate twice daily and monitor symptoms. Call if bp uncontrolled- or heart rate to elevated. . Wound Instructions - Pt was instruced to keep the wound clean, wash with antibacterial soap, use triple antibiotic ointment, call if redness, pustular drainage, or any other acute conerns. . Hypertension - uncontrolled - the patient's [...] benefits of treament with the above medications. Xnlypfv-nstzucdx-BS negative . Cellulitis - start with generic Bactrim [...] at home. Dysuria - check UA . Hypertension - well controlled - [...] discuss with her son who is a [employer] - and consider re-evaluation for nasal pillows with her cpap since she could not tolerate a face mask cpap in the past. . Wound Instructions - Pt was instructed to keep the wound clean, call if redness, pustular drainage, or any other acute concerns. . URI-discussed expected course with the patient, [...] any other acute conerns. . Hypertension - uncontrolled - the patient's [...] THE EDEMA - GET THE COMPRESSION SOCKS. Start Norvasc (amlodipine) 5mg daily Stop the [...] posterior arm-recommend removal and biopsy of lesion. INCREASE THE LEXAPRO TO 10MG DAILY START [...] in blood pressure readings at home. . Allergies - chronic - recommended pt [...] will order an overnight oxygen for Mikala. FLONASE 1 SPRAY EACH NARE DAILY PREDNISONE 20MG TWICE DAILY X 5 DAYS CALL SUNDAY IF NOT BETTER AND WE WILL SEND IN A PRESCRIPTION FOR ZITHROMAX . Sinusitis - Pt has acute infection - pain in face, maxillary region, Pt informed to use decongestant, RX given to patient, sinus rinses also recommended. Call if symptoms do not show improvement. . URI - Pt advised to increase [...] pt to call if symptoms acutely worsen. . Hypertension - well controlled - [...] benefits of treatment with the medication (lexapro). RECOMMEND SHINGLES VACCINE . Medicare Exam - [...] pain - supportive care at this time. Appointment with cardiology-Dr. Luther For your pain, [...] readings at home. Recommend follow up with animal rehabilitator for clearance before knee surgery. Will get [...] use compression socks from toes to thighs. CONTINUE CIPRO OMEPRAZOLE DAILY TAKE YOUR LASIX [...] Rosario FALCON for re-certification of oxygen. . Cough - improved - sinusitis resolved. . Sinusitis - Pt has acute infection [...] worse. RX sent to patient's pharmacy. . Subungual discoloratiion of toenail- June 10 pt is to see Dr[address] Bee - I have discussed the case with the pt and Dr. bee and she will likely have a biopsy of the digit and avulsion of the nail. Urge incontinence -Pt has urge incontinence - [...] Dr. Joshi for further treatment recommendations. . Hypertension - well controlled - continue [...] for re-certification of oxygen. . Hypertension - per home reports, her [...] - start on meloxicam, monitor creatinine. . Gycwk-nxjtpgdoab-klizj zpack when finished with cipro- follow up chest xray on Sunday UTI-finish cipro and repeat UA PATIENT IS TO CHECK BLOOD PRESSURE AND [...]
--- OUTSIDE RECORDS SUMMARY | 2018-12-27 11:00 | XMS REPORT | CCD ---
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 Name Role Phone [facility] Un[facility] CCM Unavailable Summary Purpose Interface Exchange Insurance Providers Payer name Policy type / Coverage type Covered alliance party ID Effective Begin Date Effective End Date WPS Medicare Part B Medicare Part B [id number] 2018 Unknown AARP Medicare Part B [id number] Unknown Family history Son Diagnosis Age At [...] status Unknown 04/19/[address]: 2466359 Quit over 10 years ago 40 pack/year [...] Start Date Stop Date Status Fill Instructions Xanax 0.25 mg tablet RxNorm: 812582 1-2 Tablet(s) PO QHS as needed insomnia 08/26/2018 11/23/2018 Active Voltaren 1 % topical gel RxNorm: 067792 APPLY TWO GRAMS TOPICALLY FOUR TIMES A DAY BILATERAL KNEES AND LOWER BACK 06/26/2018 09/23/2018 Active Lasix 40 mg tablet RxNorm: 186850 TAKE ONE TABLET BY MOUTH DAILY 06/20/2018 12/16/2018 Active Voltaren 1 % topical gel RxNorm: 454413 2 Gram(s) TOP QID bilateral knees and low back 05/29/2018 06/25/2018 Inactive Synthroid 50 mcg tablet RxNorm: 635018 Tablet(s) TAKE ONE TABLET BY MOUTH DAILY 05/17/2018 11/12/2018 Active Synthroid 50 mcg tablet RxNorm: 118694 TAKE ONE TABLET BY MOUTH DAILY 05/16/2018 05/16/2018 Inactive hydrocodone 5 mg-acetaminophen 325 mg tablet RxNorm: 219806 1/2 Tablet(s) PO QID as needed 05/15/2018 06/13/2018 Inactive Keflex 500 mg capsule RxNorm: 380165 1 Capsule(s) PO TID PRN 11/201705/06/2018 Inactive Silvadene 1 % topical cream RxNorm: 046418 1 Application TOP BID 04/30/2018 05/09/2018 Inactive Anusol-HC 25 mg rectal suppository RxNorm: 1275087 1 Suppository PRN INSERT 1 RECTALLY DAILY NEEDED 04/25/2018 No Stop Date Active Colace 100 mg capsule RxNorm: 7168883 1 Capsule(s) PO daily as needed 04/25/2018 No Stop Date Active meloxicam 15 mg tablet RxNorm: 256368 1 Tablet(s) PO daily TAKE ONE TABLET BY MOUTH ONE TIME A DAY 04/25/20182018 Active Silvadene 1 % topical cream RxNorm: 169747 1 Application TOP BID 04/25/2018 04/29/2018 Inactive Benicar 40 mg tablet RxNorm: 488318 TAKE ONE TABLET BY MOUTH DAILY 04/04/2018 03/29/2019 Active Xanax 0.25 mg tablet RxNorm: 210315 1-2 Tablet(s) PO QHS as needed insomnia 03/07/2018 06/04/2018 Inactive Lasix 40 mg tablet RxNorm: 554570 TAKE ONE TABLET BY MOUTH DAILY 01/07/2018 06/19/2018 Inactive Crestor 10 mg tablet RxNorm: 968307 TAKE 1 TABLET BY MOUTH ON SUNDAY, SUNDAY, AND Sunday11/20/2017 05/18/2018 Inactive Synthroid 50 mcg tablet RxNorm: 772912 TAKE ONE TABLET BY MOUTH DAILY 11/14/2017 05/12/2018 Inactive Cartia XT 240 mg capsule,extended release RxNorm: 877551 TAKE ONE CAPSULE BY MOUTH DAILY 09/12/2017 09/06/2018 Active Diflucan 150 mg tablet RxNorm: 038866 1 Tablet(s) PO daily 09/25/2017 Inactive cefdinir 300 mg capsule RxNorm: 565059 1 Capsule(s) PO BID 09/25/2017 Inactive prednisone 20 mg tablet RxNorm: 115031 2 Tablet(s) PO daily 12/201709/04/2017 Inactive Xanax 0.25 mg tablet RxNorm: 710008 1-2 Tablet(s) PO QHS as needed insomnia 08/28/2017 11/24/2017 Inactive Keflex 500 mg capsule RxNorm: 932242 1 Capsule(s) PO TID 201708/27/2017 Inactive Keflex 500 mg capsule RxNorm: 237526 1 Capsule(s) PO TID 201709/03/2017 Inactive Klor-Con 10 mEq tablet,extended release RxNorm: 464520 TAKE ONE TABLET BY MOUTH TWICE A DAY 08/23/2017 08/17/2018 Inactive cefdinir 300 mg capsule RxNorm: 920647 1 Capsule(s) PO BID 08/12/2017 Inactive cefdinir 300 mg capsule RxNorm: 834809 1 Capsule(s) PO BID 08/19/2017 Inactive Kenalog 40 mg/mL suspension for injection RxNorm: 0957254 1 Milliliter(s) Inj 08/09/2017 08/09/2017 Inactive ceftriaxone 500 mg solution for injection RxNorm: 1148634 Inj 08/09/2017 08/09/2017 Inactive Zithromax Z-Hebert 250 mg tablet RxNorm: 564371 1 Tablet(s) PO UD 08/09/2017 08/13/2017 Inactive Singulair 10 mg tablet RxNorm: 530900 TAKE ONE TABLET BY MOUTH EVERY DAY 08/03/2017 11/25/2018 Active Xanax 0.25 mg tablet RxNorm: 686465 1-2 Tablet(s) PO QHS as needed insomnia 07/25/2017 05/28/2018 Inactive Benicar 40 mg tablet RxNorm: 820383 TAKE ONE TABLET BY MOUTH DAILY 07/09/2017 04/03/2018 Inactive Lasix 40 mg tablet RxNorm: 143088 TAKE ONE TABLET BY MOUTH DAILY 07/09/2017 01/04/2018 Inactive Synthroid 50 mcg tablet RxNorm: 917946 1 Tablet(s) PO daily TAKE ONE TABLET BY MOUTH DAILY 05/21/2017 11/13/2017 Inactive Must be name brand Lasix 40 mg tablet RxNorm: 741884 TAKE ONE TABLET BY MOUTH DAILY 04/12/2017 07/08/2017 Inactive Zithromax Z-Hebert 250 mg tablet RxNorm: 663496 1 Tablet(s) PO UD 02/05/2017 02/09/2017 Inactive start with finished with cipro Cipro 500 mg tablet RxNorm: 511091 1 Tablet(s) PO BID 201602/07/2017 Inactive prednisone 20 mg tablet RxNorm: 928932 1 Tablet(s) PO BID 01/1501/19/2017 Inactive take 1 in the morning and 1 at noon calcium carbonate 600 mg calcium (1,500 mg) tablet RxNorm: 582037 1 Tablet(s) PO daily 01/04/2017 No Stop Date Active Kenalog 40 mg/mL suspension for injection RxNorm: 0631232 1 Milliliter(s) Inj 01/04/2017 01/04/2017 Inactive Anusol-HC 25 mg rectal suppository RxNorm: 6448433 1 Suppository PRN INSERT 1 RECTALLY DAILY NEEDED 01/04/20172016 Inactive Lasix 40 mg tablet RxNorm: 751057 TAKE ONE TABLET BY MOUTH DAILY 12/20/2016 04/11/2017 Inactive Cartia XT 240 mg capsule,extended release RxNorm: 042276 TAKE ONE CAPSULE BY MOUTH DAILY 12/20/2016 09/11/2017 Inactive Synthroid 50 mcg tablet RxNorm: 510120 1 Tablet(s) PO daily TAKE ONE TABLET BY MOUTH DAILY 11/27/2016 05/20/2017 Inactive Must be name brand meloxicam 15 mg tablet RxNorm: 729918 Tablet(s) TAKE ONE TABLET BY MOUTH ONE TIME A DAY 11/27/2016 06/24/2017 Inactive Crestor 10 mg tablet RxNorm: 158999 TAKE 1 TABLET BY MOUTH ON SUNDAY, SUNDAY, AND Sunday11/13/2016 10/14/2017 Inactive Lexapro 10 mg tablet RxNorm: 838591 1 Tablet(s) PO daily 201601/03/2017 Inactive please make sure that her RX for lexapro is a 10mg dose - delete the 5mg lexapro pill - this is FYI Klor-Con 10 mEq tablet,extended release RxNorm: 055847 TAKE ONE TABLET BY MOUTH TWICE A DAY 08/29/2016 02/24/2017 Inactive Kenalog 40 mg/mL suspension for injection RxNorm: 7224071 Milliliter(s) Inj 08/23/2016 08/23/2016 Inactive cefdinir 300 mg capsule RxNorm: 676964 1 Capsule(s) PO BID 08/28/2016 Inactive take probiotic while on abx Zithromax Z-Hebert 250 mg tablet RxNorm: 122948 1 Tablet(s) PO UD 08/11/2016 09/06/2016 Inactive Z PACK DIRECTED Lexapro 5 mg tablet RxNorm: 324596 TAKE ONE TABLET BY MOUTH EVERY EVENING 07/18/2016 09/06/2016 Inactive Singulair 10 mg tablet RxNorm: 633526 TAKE ONE TABLET BY MOUTH EVERY DAY 07/17/2016 08/02/2017 Inactive Benicar 40 mg tablet RxNorm: 501198 TAKE ONE TABLET BY MOUTH DAILY 07/17/2016 07/08/2017 Inactive Lexapro 10 mg tablet RxNorm: 602789 1 Tablet(s) PO daily 201509/06/2016 Inactive diltiazem ER 180 mg capsule,extended release RxNorm: 841757 TAKE ONE CAPSULE BY MOUTH DAILY 06/15/2016 07/05/2016 Inactive Lexapro 10 mg tablet RxNorm: 585177 1 Tablet(s) PO daily 201506/15/2016 Inactive gabapentin 600 mg tablet RxNorm: 564699 TAKE ONE TABLET BY MOUTH EVERY NIGHT AT BEDTIME NEEDED 04/27/2016 04/11/2017 Inactive Cartia XT 240 mg capsule,extended release RxNorm: 239495 1 Capsule(s) PO daily TAKE ONE CAPSULE BY MOUTH ONCE A DAY 04/17/2016 12/19/2016 Inactive Benicar 40 mg tablet RxNorm: 779297 1 Tablet(s) PO daily 201507/16/2016 Inactive she can do 90 days if she wants to Lexapro 5 mg tablet RxNorm: 076945 1 Tablet(s) PO QPM 201506/07/2016 Inactive Synthroid 50 mcg tablet RxNorm: 235029 1 Tablet(s) PO daily TAKE ONE TABLET BY MOUTH DAILY 01/18/2016 07/15/2016 Inactive Colace 100 mg capsule RxNorm: 7162063 1 Capsule(s) PO daily 04/24/2018 Inactive hydrocodone 5 mg-acetaminophen 325 mg tablet RxNorm: 911004 1/2 Tablet(s) PO QID as needed 01/18/2016 02/16/2016 Inactive Synthroid 50 mcg tablet RxNorm: 354837 Tablet(s) TAKE ONE TABLET BY MOUTH DAILY 12/23/2015 01/17/2016 Inactive Benicar 40 mg tablet RxNorm: 501766 1 Tablet(s) PO daily 201512/12/2015 Inactive Benicar 40 mg tablet RxNorm: 402104 1 Tablet(s) PO daily 201504/10/2016 Inactive meloxicam 15 mg tablet RxNorm: 086364 TAKE ONE TABLET BY MOUTH ONE TIME A DAY 11/12/2015 06/08/2016 Inactive meloxicam 15 mg tablet RxNorm: 340412 Tablet(s) TAKE ONE TABLET BY MOUTH ONE TIME A DAY 11/11/2015 11/11/2015 Inactive Lasix 40 mg tablet RxNorm: 679721 Tablet(s) TAKE ONE TABLET BY MOUTH EVERY DAY 10/19/2015 12/19/2016 Inactive diltiazem ER 180 mg capsule,extended release RxNorm: 323040 1 Capsule(s) daily TAKE ONE CAPSULE BY MOUTH ONCE A DAY 09/27/2015 04/16/2016 Inactive Crestor 10 mg tablet RxNorm: 539355 1 Tablet(s) PO Sun09/17/2015 07/12/2016 Inactive [SAVINGS FOR UNINSURED PATIENTS -- BIN:438656, PCN: ASPROD1, [facility]# [id number], Process claim through [employer], for questions: [phone]. THIS IS NOT INSURANCE.] hydrocodone 5 mg-acetaminophen 325 mg tablet RxNorm: 809893 1-2 Tablet(s) PO Q6 PRN 09/09/2015 10/08/2015 Inactive Micardis 80 mg tablet RxNorm: 945226 1 Tablet(s) PO daily TAKE ONE TABLET BY MOUTH DAILY 08/23/2015 12/12/2015 Inactive Klor-Con 10 mEq tablet,extended release RxNorm: 896736 Tablet(s) TAKE ONE TABLET BY MOUTH TWICE A DAY 08/23/20152015 Inactive Synthroid 50 mcg tablet RxNorm: 373495 TAKE ONE TABLET BY MOUTH DAILY 07/06/2015 12/22/2015 Inactive meloxicam 15 mg tablet RxNorm: 177493 TAKE ONE TABLET BY MOUTH ONE TIME A DAY 06/22/2015 11/10/2015 Inactive Singulair 10 mg tablet RxNorm: 302871 TAKE ONE TABLET BY MOUTH EVERY DAY 05/18/2015 07/16/2016 Inactive Micardis 80 mg tablet RxNorm: 267875 TAKE ONE TABLET BY MOUTH DAILY 02/22/2015 05/04/2015 Inactive gabapentin 600 mg tablet RxNorm: 810242 1 Tablet(s) PO HS as needed 01/15/2015 01/09/2016 Inactive [SAVINGS FOR NON-COVERED DRUGS -- BIN:031443, PCN: ASPROD1, Group : XXXXX, ID# [id number], Questions: . THIS IS NOT INSURANCE.] diltiazem ER 180 mg capsule,extended release RxNorm: 001470 TAKE ONE CAPSULE BY MOUTH ONCE A DAY 01/07/2015 09/26/2015 Inactive meloxicam 15 mg tablet RxNorm: 338720 TAKE ONE TABLET BY MOUTH ONE TIME A DAY 11/09/2014 05/07/2015 Inactive gabapentin 600 mg tablet RxNorm: 537909 1 Tablet(s) PO HS as needed 10/13/2014 01/14/2015 Inactive [SAVINGS FOR UNINSURED PATIENTS -- BIN:292329, PCN: ASPROD1, Group: [id number], ID# [id number], Process claim through [employer], for questions: [phone]. THIS IS NOT INSURANCE.] omeprazole 20 mg tablet,delayed release RxNorm: 674129 1 Tablet(s) PO daily 10/13/2014 11/11/2014 Inactive Synthroid 50 mcg tablet RxNorm: 389864 TAKE ONE TABLET BY MOUTH EVERY DAY 10/12/2014 01/09/2015 Inactive Synthroid 50 mcg tablet RxNorm: 150270 Tablet(s) TAKE ONE TABLET BY MOUTH EVERY DAY 10/12/2014 10/11/2014 Inactive [SAVINGS FOR UNINSURED PATIENTS -- BIN:527224, PCN: ASPROD1, Group: [id number], ID# [id number], Process claim through [employer], for questions: . THIS IS NOT INSURANCE.] Lasix 40 mg tablet RxNorm: 202598 Tablet(s) PO TAKE ONE TABLET BY MOUTH TWICE A DAY FOR 3 DAYS, THEN RESUME ONE DAILY EXCEPT ON WEDNESDAYS AND FRIDAYS TAKE ONE TWICE DAILY 09/22/2014 05/28/2018 Inactive [SAVINGS FOR UNINSURED PATIENTS -- BIN: 844141, PCN: ASPROD1, Group: [id number], ID# [id number], Process claim through [employer] , for questions: . THIS IS NOT INSURANCE.] Lasix 40 mg tablet RxNorm: 774850 TAKE ONE TABLET BY MOUTH EVERY DAY 09/22/2014 10/18/2015 Inactive Crestor 10 mg tablet RxNorm: 963007 1 Tablet(s) PO Sun08/28/2014 04/24/2015 Inactive [SAVINGS FOR UNINSURED PATIENTS -- BIN:483580, PCN: ASPROD1, Group: [id number], ID# [id number], Process claim through [employer], for questions: [phone]. THIS IS NOT INSURANCE.] Crestor 10 mg tablet RxNorm: 374592 1 Tablet(s) PO Sun08/28/2014 08/27/2014 Inactive [SAVINGS FOR UNINSURED PATIENTS -- BIN:201744, PCN: ASPROD1, Group: [id number], ID# [id number], Process claim through [employer], for questions: [phone]. THIS IS NOT INSURANCE.] Micardis 80 mg tablet RxNorm: 188241 TAKE ONE TABLET BY MOUTH EVERY DAY 08/24/2014 12/21/2014 Inactive Zithromax Z-Hebert 250 mg tablet RxNorm: 058797 Tablet(s) PO UD 08/18/2014 Inactive 2 tabs day 1, 1 tabs days 2-5 Anusol-HC 25 mg suppository RxNorm: 1073504 INSERT 1 RECTALLY DAILY NEEDED 07/13/2014 10/10/2014 Inactive Klor-Con 10 mEq tablet,extended release RxNorm: 382002 TAKE ONE TABLET BY MOUTH TWICE A DAY 06/18/2014 12/14/2014 Inactive Lomotil 2.5 mg-0.025 mg tablet RxNorm: 6665490 1 Tablet(s) PO PRN after each loose stool max 8 per day 06/15/201410/12 Inactive one after each loose bm limit 8 per day albuterol sulfate HFA 90 mcg/actuation aerosol inhaler RxNorm: 7790110 1 or2 Puff( s) INH Q4 PRN as needed 05/11/20142013 Inactive albuterol sulfate HFA 90 mcg/actuation aerosol inhaler RxNorm: 5358116 1 or2 Puff( s) INH Q4 PRN as needed 05/11/20142016 Inactive Premarin 0.625 mg/gram vaginal cream RxNorm: 509693 1/2 Gram(s) VAG every other day 05/11/2014 12/06/2014 Inactive Premarin 0.625 mg/gram vaginal cream RxNorm: 223271 1/2 Gram(s) VAG every other day 05/11/2014 05/10/2014 Inactive cefdinir 300 mg capsule RxNorm: 650619 1 Capsule(s) PO BID 06/201405/16/2014 Inactive Rocephin 500 mg solution for injection RxNorm: 409064 1 Milliliter(s) Inj 05/07/2014 05/07/2014 Inactive Singulair 10 mg tablet RxNorm: 766050 TAKE ONE TABLET BY MOUTH EVERY DAY 04/30/2014 10/12/2014 Inactive meloxicam 15 mg tablet RxNorm: 656505 1 Tablet(s) PO daily 11/08/2014 Inactive Crestor 10 mg tablet RxNorm: 174890 1 Tablet(s) PO Sun TAKE ONE TABLET BY MOUTH EVERY DAY 04/16/2014 08/27/2014 Inactive Synthroid 50 mcg tablet RxNorm: 821519 TAKE ONE TABLET BY MOUTH EVERY DAY 04/02/2014 09/28/2014 Inactive diltiazem ER 180 mg capsule,extended release RxNorm: 836468 1 Capsule(s) PO daily 01/05/2014 12/30/2014 Inactive Pennsaid 1.5 % topical drops RxNorm: 419518 Drop(s) TOP APPLY 15 - 20 DROPS TOPICALLY FOUR TIMES A DAY 12/29/2013 Inactive Rocephin 500 mg solution for injection RxNorm: 452964 Inj 12/2612/26/2013 Inactive Kenalog 40 mg/mL suspension for injection RxNorm: 1871128 Milliliter(s) Inj 12/26/2013 12/26/2013 Inactive Micardis 80 mg tablet RxNorm: 445778 Tablet(s) PO TAKE ONE TABLET BY MOUTH EVERY DAY 12/15/2013 08/23/2014 Inactive nystatin 100,000 unit/mL oral suspension RxNorm: 919505 4 Unit(s) PO QID swish and swallow 11/12/2013 12/09/2013 Inactive Kenalog 40 mg/mL suspension for injection RxNorm: 7054782 Milliliter(s) Inj 11/12/2013 11/12/2013 Inactive Lasix 40 mg tablet RxNorm: 772546 Tablet(s) PO TAKE ONE TABLET BY MOUTH TWICE A DAY FOR 3 DAYS, THEN RESUME ONE DAILY EXCEPT ON WEDNESDAYS AND FRIDAYS TAKE ONE TWICE DAILY 10/30/2013 09/21/2014 Inactive Lasix 40 mg tablet RxNorm: 998450 1 Tablet(s) PO daily 201310/29/2013 Inactive Rocephin 500 mg solution for injection RxNorm: 713791 1 Milliliter(s) Inj 10/09/2013 10/09/2013 Inactive metoprolol succinate ER 25 mg tablet,extended release 24 hr RxNorm: 103590 Tablet (s) PO TAKE ONE TABLET BY MOUTH EVERY DAY 10/02/2013 01/06/2014 Inactive metoprolol succinate ER 25 mg tablet,extended release 24 hr RxNorm: 242297 Tablet (s) PO TAKE ONE TABLET BY MOUTH EVERY DAY 08/04/2013 10/01/2013 Inactive Synthroid 50 mcg tablet RxNorm: 919673 Tablet(s) PO TAKE ONE TABLET BY MOUTH EVERY DAY 07/14/2013 04/01/2014 Inactive gabapentin 600 mg tablet RxNorm: 328552 1 Tablet(s) PO Q8 PRN 06/11/2013 06/11/2013 Inactive gabapentin 600 mg tablet RxNorm: 774566 1 Tablet(s) PO Q8 PRN 06/11/2013 03/07/2014 Inactive Neurontin 600 mg tablet RxNorm: 854432 1 Tablet(s) PO Q8 PRN 06/11/2013 Inactive Anusol-HC 25 mg suppository RxNorm: 6219064 Suppository RTL INSERT 1 RECTALLY DAILY NEEDED 04/24/2013 07/12/2014 Inactive metoprolol succinate ER 25 mg tablet,extended release 24 hr RxNorm: 295688 1 Tablet(s) PO daily 04/21/2013 08/03/2013 Inactive Premarin 0.625 mg/gram Vaginal Cream RxNorm: 156538 1/2 Gram(s) VAG every other day 04/03/2013 10/29/2013 Inactive Klor-Con 10 mEq tablet,extended release RxNorm: 212986 1 Tablet(s) PO daily 03/26/2013 03/20/2014 Inactive Klor-Con 10 mEq tablet,extended release RxNorm: 978845 1 Tablet(s) PO BID 03/24/2013 03/23/2013 Inactive Klor-Con 10 mEq tablet,extended release RxNorm: 293564 1 Tablet(s) PO BID 03/24/2013 03/25/2013 Inactive Klor-Con 10 mEq tablet,extended release RxNorm: 275241 1 Tablet(s) PO BID 03/24/2013 03/23/2013 Inactive Augmentin 875 mg-125 mg tablet RxNorm: 768785 1 Tablet(s) PO BID 03/12/2013 03/18/2013 Inactive Augmentin 875 mg-125 mg tablet RxNorm: 275808 1 Tablet(s) PO BID 03/12/2013 03/11/2013 Inactive ciprofloxacin 500 mg tablet RxNorm: 502991 1 Tablet(s) PO BID 03/11/2013 03/17/2013 Inactive ciprofloxacin 500 mg tablet RxNorm: 142326 1 Tablet(s) PO BID 03/11/2013 03/10/2013 Inactive Crestor 10 mg tablet RxNorm: 993356 1 Tablet(s) PO daily 201202/09/2013 Inactive Crestor 10 mg tablet RxNorm: 717751 Tablet(s) PO TAKE ONE TABLET BY MOUTH EVERY DAY 02/10/2013 04/15/2014 Inactive Singulair 10 mg tablet RxNorm: 184108 Tablet(s) PO TAKE ONE TABLET BY MOUTH EVERY DAY 02/04/2013 04/29/2014 Inactive Kenalog 40 mg/mL Susp for Injection RxNorm: 2219116 1 Milliliter(s) Inj 11/21/2012 11/21/2012 Inactive Pennsaid 1.5 % topical drops RxNorm: 757332 15-20 Drop(s) TOP QID 10/28/2012 11/21/2013 Inactive Micardis 80 mg tablet RxNorm: 432744 1 Tablet(s) PO daily 201210/22/2013 Inactive put this on file please, quantitiy increase Pennsaid 1.5 % Topical Drops RxNorm: 336746 15-20 Drop(s) TOP QID 10/28/2012 10/27/2012 Inactive diltiazem ER 180 mg capsule,extended release RxNorm: 063437 1 Capsule(s) PO daily 10/14/2012 10/08/2013 Inactive Pyridium 200 mg tablet RxNorm: 4231903 1 Tablet(s) PO Q8 PRN 10/12/2014 Inactive Flagyl 500 mg tablet RxNorm: 997621 1 Tablet(s) PO TID 201209/10/2012 Inactive Macrobid 100 mg capsule RxNorm: 9275258 1 Capsule(s) PO BID 03/201309/02/2012 Inactive Macrobid 100 mg capsule RxNorm: 3489518 1 Capsule(s) PO BID 03/201309/09/2012 Inactive sulfamethoxazole-trimethoprim 800 mg-160 mg tablet RxNorm: 592830 1 Tablet(s) PO BID 08/05/2012 08/14/2012 Inactive Lasix 40 mg tablet RxNorm: 723928 1 Tablet(s) PO BID pt is taking extra lasix x 3 days, then every sunday and sunday take two lasix pills. 07/15/2012 07/09/2013 Inactive Synthroid 50 mcg tablet RxNorm: 200814 1 Tablet(s) PO daily 07/09/2013 Inactive do not substitute the generic levothyroxine for the synthroid brand name.....she needs brand name synthroid. Klor-Con 10 mEq tablet,extended release RxNorm: 753269 1 Tablet(s) PO BID 07/15/2012 03/23/2013 Inactive Singulair 10 mg tablet RxNorm: 421432 1 Tablet(s) PO daily 02/03/2013 Inactive Lexapro 10 mg tablet RxNorm: 817642 1/2 Tablet(s) PO daily 06/03/2013 Inactive ProAir HFA 90 mcg/actuation Aerosol Inhaler RxNorm: 092363 2 INH Q6 PRN 04/23/2012 01/17/2016 Inactive Lexapro 10 mg tablet RxNorm: 254721 1/2 Tablet(s) PO daily 05/09/2012 Inactive metoprolol succinate ER 50 mg tablet,extended release 24 hr RxNorm: 834368 1 Tablet(s) PO daily 04/09/2012 04/09/2012 Inactive Klor-Con 10 10 mEq tablet,extended release RxNorm: 479633 1 Tablet(s) PO daily 04/01/2012 07/14/2012 Inactive metoprolol succinate ER 50 mg tablet,extended release 24 hr RxNorm: 628904 1/2 Tablet(s) PO BID 03/11/2012 04/08/2012 Inactive clonidine 0.1 mg Tab RxNorm: 218695 1 Tablet(s) PO BID 201103/12/2012 Inactive clonidine 0.1 mg Tab RxNorm: 846737 1 Tablet(s) PO BID 201102/18/2012 Inactive Micardis 80 mg Tab RxNorm: 027297 1 Tablet(s) PO daily 201102/13/2012 Inactive Micardis 80 mg tablet RxNorm: 292056 1 Tablet(s) PO daily 201110/27/2012 Inactive Synthroid 50 mcg tablet RxNorm: 138010 1 Tablet(s) PO daily 07/14/2012 Inactive Tekturna 300 mg Tab RxNorm: 3434075 1 Tablet(s) PO daily 02/1103/12/2012 Inactive Lasix 40 mg Tab RxNorm : 677723 1 Tablet(s) PO daily 12/18/2011 12/17/2011 Inactive Lasix 40 mg tablet RxNorm: 572551 1 Tablet(s) PO daily 201107/14/2012 Inactive Anusol-HC 25 mg Suppository RxNorm: 0729777 1 Suppository RTL QDAY PRN 12/04/2011 04/19/2012 Inactive lactobacillus acidophilus Cap RxNorm: 1 Capsule(s) PO BID 11/20/2011 Inactive lactobacillus acidophilus Cap RxNorm: 1 Capsule(s) PO BID 11/20/2011 Inactive Cipro 500 mg Tab RxNorm: 513294 1 Tablet(s) PO BID 201103/12/2012 Inactive lactobacillus acidophilus Cap RxNorm: 1 Capsule(s) PO BID 11/27/2011 Inactive lactobacillus acidophilus Cap RxNorm: 1 Capsule(s) PO BID 11/20/2011 Inactive Cipro 500 mg Tab RxNorm: 652588 1 Tablet(s) PO BID 201111/20/2011 Inactive Lexapro 10 mg Tab RxNorm: 713736 1 Tablet(s) PO daily 201111/12/2011 Inactive Lexapro 10 mg tablet RxNorm: 959908 1 Tablet(s) PO daily 201104/18/2012 Inactive amlodipine 10 mg Tab RxNorm: 701689 1 Tablet(s) PO daily 201112/03/2011 Inactive amlodipine 5 mg Tab RxNorm: 725897 1 Tablet(s) PO daily 201112/04/2011 Inactive Rocephin 500 mg Solution for Injection RxNorm: 075739 Inj 08/3009/20/2011 Inactive metoprolol succinate ER 25 mg 24 hr Tab RxNorm: 001824 1 Tablet(s) PO QHS 08/30/2011 09/20/2011 Inactive Ambien 10 mg Tab RxNorm: 076136 1 Tablet(s) PO HS PRN 08/3004/19/2012 Inactive Augmentin 875 mg-125 mg Tab RxNorm: 123733 1 Tablet(s) PO BID 08/25/2011 09/20/2011 Inactive Augmentin 875 mg-125 mg Tab RxNorm: 835445 1 Tablet(s) PO BID 08/25/2011 08/24/2011 Inactive Rocephin 500 mg Solution for Injection RxNorm: 958145 Inj 08/2308/23/2011 Inactive Levaquin 500 mg Tab RxNorm: 467584 1 Tablet(s) PO daily 201008/30/2011 Inactive chlordiazepoxide-clidinium 5 mg-2.5 mg Cap RxNorm: 085644 1 Capsule(s) PO BID 07/10/2011 04/19/2012 Inactive q 12 hours prn metoprolol succinate ER 100 mg 24 hr Tab RxNorm: 975869 1 Tablet(s) PO daily 05/29/2011 03/12/2012 Inactive Synthroid 50 mcg Tab RxNorm: 074991 1 Tablet(s) PO daily 201008/12/2011 Inactive Ambien CR 12.5 mg Tab RxNorm: 082676 1 Tablet(s) PO HS PRN 05/0908/30/2011 Inactive Ambien 10 mg Tab RxNorm: 025655 1 Tablet(s) PO QHS 201006/07/2011 Inactive Nexium 40 mg Cap RxNorm: 453958 1 Capsule(s) PO daily 05/0403/12/2012 Inactive the patient had tried pepcid, otc priolosec, RX omperazole, failed them all Bactrim DS 800 mg-160 mg Tab RxNorm: 176995 1 Tablet(s) PO BID 04/19/2011 08/30/2011 Inactive triamcinolone acetonide 40 mg/mL Susp for Injection RxNorm: 7183281 1 Milliliter(s ) Inj UD 04/19/2011 04/19/2011 Inactive aspirin 81 mg Tab, Delayed Release RxNorm: 099464 1 Tablet(s) PO daily No Start Date Active 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 Device RxNorm: Miscellaneous QHS sleep apnea, 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 No Start Date Active Cymbalta 30 mg Cap RxNorm: 103387 1 Capsule(s) PO daily No Start Date 03/12/2012 Inactive Nexium 40 mg Cap RxNorm: 456679 Capsule(s) PO No Start Date 05/03/2011 Inactive Benadryl 25 mg capsule RxNorm: 6805034 1 Capsule(s) PO QHS No Start Date 01/03/2017 Inactive Klor-Con 10 10 mEq tablet,extended release RxNorm: 294812 1 Tablet(s) PO daily No Start Date 03/31/2012 Inactive Metamucil Oral RxNorm : Oral No Start Date 10/12/2014 Inactive amlodipine 10 mg Tab RxNorm: 044884 1 Tablet(s) PO daily No Start Date 10/08/2011 Inactive Norvasc 5 mg tablet RxNorm: 957759 1 Tablet(s) PO daily No Start Date 10/12/2014 Inactive Lasix 40 mg Tab RxNorm : 848847 1 Tablet(s) PO daily No Start Date 12/17/2011 Inactive diltiazem ER (XR/XT) 240 mg capsule,extended release, controlled RxNorm: 924952 1 Capsule(s) PO daily No Start Date Inactive Centrum Silver Ultra Women's oral RxNorm: 22686 oral No Start Date 04/24/2018 Inactive Synthroid 50 mcg Tab RxNorm: 843881 1 Tablet(s) PO daily No Start Date 05/14/2011 Inactive Flagyl 500 mg tablet RxNorm: 309924 1 Tablet(s) PO No Start Date 09/03/2012 Inactive one after each loose bm limit 8 per day Boniva 150 mg Tab RxNorm: 398382 1 Tablet(s) PO UD No Start Date 08/30/2011 Inactive monthly Singulair 10 mg tablet RxNorm: 799113 1 Tablet(s) PO daily No Start Date 06/11/2012 Inactive folic acid Oral RxNorm : Oral No Start Date 03/12/2012 Inactive potassium chloride ER 10 mEq tablet,extended release RxNorm: 166177 1 Tablet(s) PO daily No Start Date 01/03/2017 Inactive Probiotic & Acidophilus oral RxNorm: oral No Start Date 04/24/2018 Inactive Librium 10 mg Cap RxNorm: 042498 Capsule(s) PO UD No Start Date 03/12/2012 Inactive q 12 hours prn Crestor 10 mg tablet RxNorm: 097724 1 Tablet(s) PO daily No Start Date 02/09/2013 Inactive multivitamin Cap RxNorm: 1 Capsule(s) PO daily No Start Date 01/17/2016 Inactive metoprolol succinate ER 100 mg 24 hr Tab RxNorm: 531419 1 Tablet(s) PO daily No Start Date 05/28/2011 Inactive Zithromax Z-Hebert 250 mg tablet RxNorm: 822090 Tablet(s) PO UD No Start Date 12/22/2015 Inactive diltiazem ER 180 mg capsule,extended release RxNorm: 614778 1 Capsule(s) PO daily No Start Date 10/13/2012 Inactive Tekturna 300 mg Tab RxNorm: 0241475 1 Tablet(s) PO daily samples No Start Date 02/11/2012 Inactive Xanax 0.25 mg tablet RxNorm: 140704 1-2 Tablet(s) PO QHS as needed insomnia No Start Date 07/24/2017 Inactive Fish Oil 1,000 mg Cap RxNorm: 1 Capsule(s) PO daily No Start Date 04/24/2018 Inactive ProAir HFA 90 mcg/actuation Aerosol Inhaler RxNorm: 836844 2 INH Q6 PRN No Start Date 04/22/2012 Inactive chlordiazepoxide-clidinium 5 mg-2.5 mg Cap RxNorm: 995838 1 Capsule(s) PO PRN No Start Date 07/09/2011 Inactive q 12 hours prn Butrans 5 mcg/hour Transderm Patch RxNorm: 678483 1 Patch TD weekly No Start Date 05/26/2012 Inactive Lactobacillus acidophilus tablet RxNorm: 4 Tablet(s) PO daily No Start Date 01/03/2017 Inactive Librax (with clidinium) 5 mg-2.5 mg capsule RxNorm: 611673 1 Capsule(s) PO BID No Start Date 04/18/2012 Inactive Nexium 40 mg capsule,delayed release RxNorm: 546406 Capsule(s) PO PRN No Start Date 10/12/2014 Inactive Tylenol Extra Strength 500 mg tablet RxNorm: 825862 1 Tablet(s) PO BID as needed for pain No Start Date 04/24/2018 Inactive Premarin 0.625 mg/gram Vaginal Cream RxNorm: 755652 Gram(s) VAG No Start Date 03/12/2012 Inactive three times a week, small amt to vaginal tissuesample given metoprolol succinate ER 50 mg tablet,extended release 24 hr RxNorm: 996480 1 Tablet(s) PO daily No Start Date 2011 Inactive Zithromax Z-Hebert 250 mg tablet RxNorm: 651311 Tablet(s) PO UD No Start Date 08/13/2014 Inactive albuterol sulfate HFA 90 mcg/actuation aerosol inhaler RxNorm: 1999987 1 or2 Puff( s) INH Q4 PRN No Start Date 05/10/2014 Inactive Xanax 0.25 mg Tab RxNorm: 638661 1/2-1 Tablet(s) PO Q8 PRN No Start Date 03/12/2012 Inactive metoprolol succinate ER 25 mg tablet,extended release 24 hr RxNorm: 980325 1 Tablet(s) PO daily No Start Date 2012 Inactive Zithromax Z-Hebert 250 mg tablet RxNorm: 465277 1 Tablet(s) PO UD No Start Date 08/10/2016 Inactive Z PACK DIRECTED calcium carbonate 600 mg (1,500 mg) Tab RxNorm: 038506 1 Tablet(s) PO BID No Start Date 01/03/2017 Inactive albuterol sulfate HFA 90 mcg/Actuation Aerosol Inhaler RxNorm: 898391 1-2 Puff(s) INH Q4 PRN No Start Date 03/11/2012 Inactive Vitamin D3 2,000 unit capsule RxNorm: 342236 1 Capsule(s) PO daily No Start Date 10/12/2014 Inactive Colace 100 mg Cap RxNorm: 8459604 1 Capsule(s) PO BID No Start Date 01/17/2016 Inactive Neurontin 600 mg tablet RxNorm: 942576 1 Tablet(s) PO Q8 PRN No Start Date 06/09/2013 Inactive Lomotil 2.5 mg-0.025 mg tablet RxNorm: 1692819 1 Tablet(s) PO No Start Date 06/14/2014 Inactive one after each loose bm limit 8 per day Micardis 80 mg Tab RxNorm: 412240 1 Tablet(s) PO daily No Start Date 12/03/2011 Inactive Pyridium 200 mg tablet RxNorm: 3319265 1 Tablet(s) PO Q8 PRN No Start Date 09/10/2012 Inactive Medication Administered Medication Codes Instructions Start Date Status ceftriaxone 500 mg solution for injection RxNorm: 0720739 08/09/2017 No longer Active Kenalog 40 mg/mL suspension for injection RxNorm: 4286170 1Milliliter 08/09/2017 No longer Active Kenalog 40 mg/mL suspension for injection RxNorm: 5268542 1Milliliter 01/04/2017 No longer Active Kenalog 40 mg/mL suspension for injection RxNorm: 0911688 Milliliter 08/23/2016 No longer Active Rocephin 500 mg solution for injection RxNorm: 331814 1Milliliter 05/07/2014 No longer Active Kenalog 40 mg/mL suspension for injection RxNorm: 4778405 Milliliter 12/26/2013 No longer Active Rocephin 500 mg solution for injection RxNorm: 981312 12/26/2013 No longer Active Kenalog 40 mg/mL suspension for injection RxNorm: 6210413 Milliliter 11/12/2013 No longer Active Rocephin 500 mg solution for injection RxNorm: 216851 1Milliliter 10/09/2013 No longer Active Kenalog 40 mg/mL Susp for Injection RxNorm: 4493569 1Milliliter 11/21/2012 No longer Active Rocephin 500 mg Solution for Injection RxNorm: 023893 08/23/2011 No longer Active triamcinolone acetonide 40 mg/mL Susp for Injection RxNorm: 6927658 1MilliliterUD 04/19/2011 No longer Active Immunizations Vaccine [...] Item Item Code Result Date Comp Metabolic Ehu489 NA 139 mEq/L 05/29/2018 Comp Metabolic Hvz224 K 4.1 mEq/L 05/29/2018 Comp Metabolic Tvg077 CL 99 mEq/L 05/29/2018 Comp Metabolic Wzl602 CO2 30.0 mEq/L 05/29/2018 Comp Metabolic Vop830 ANION GAP 14 05/29/2018 Comp Metabolic Niz726 GLUCOSE 107 mg/dL 05/29/2018 Comp Metabolic Bnx582 Creat 0.6 mg/dL 05/29/2018 Comp Metabolic Dlj164 eGFR 95 ml/min/1.73m2 05/29/2018 Comp Metabolic Wma008 BUN 15 mg/dL 05/29/2018 Comp Metabolic Six822 B/C Ratio 23.4 Ratio 05/29/2018 Comp Metabolic Dyb026 CALCIUM 9.4 mg/dL 05/29/2018 Comp Metabolic Mwy839 ALK PHOS 52 U/L 05/29/2018 Comp Metabolic Uxk950 AST(SGOT) 16 U/L 05/29/2018 Comp Metabolic Cuh890 ALT(SGPT) 12 U/L 05/29/2018 Comp Metabolic Svb699 BILI T 1.1 mg/dL 05/29/2018 Comp Metabolic Vzf709 ALBUMIN 4.0 g/dL 05/29/2018 Comp Metabolic Ckr466 TPRO 6.5 g/dL 05/29/2018 Comp Metabolic Rtx577 GLOB 2.5 g/dL 05/29/2018 Comp Metabolic Gbf842 A/G Ratio 1.6 Ratio 05/29/2018 Comp Metabolic Rtq734 Osmo 279 mOsmo 05/29/2018 Cbc With Differential [...] 24.9 % 05/29/2018 Cbc With Differential Ord2 Bond% 9.0 % 05/29/2018 Cbc With Differential Ord2 [...] 2.05 K/ul 05/29/2018 Cbc With Differential Ord2 Bond ABS# 0.7 K/ul 05/29/2018 Cbc With Differential Ord2 Eos ABS# 0.2 K/ul 05/29/2018 Cbc With Differential Ord2 Baso ABS# 0.0 K/ul 05/29/2018 Tsh Ord6 TSH (3rd IS) 2.05 uIU/mL 05/29/2018 Lipid Ord30 CHOL 191 mg/dL 05/29/2018 Lipid Ord30 HDL 68.0 mg/dl 05/29/2018 Lipid Ord30 TRIG 138 mg/dL 05/29/2018 Lipid Ord30 LDL 95 mg/dL 05/29/2018 Lipid Ord30 C/HDL 2.8 Ratio 05/29/2018 Free T4 Etm779 FREE T4 0.93 ng/dL 05/29/2018 Free T4 Lgr535 FREE T4 0.90 ng/dL 09/12/2017 Cbc With [...] 29.3 pg 09/12/2017 Cbc With Differential Ord2 Bond% 8.7 % 09/12/2017 Cbc With Differential Ord2 [...] 2.72 K/ul 09/12/2017 Cbc With Differential Ord2 Bond ABS# 1.2 K/ul 09/12/2017 Cbc With Differential Ord2 Eos ABS# 0.3 K/ul 09/12/2017 Cbc With Differential Ord2 Baso ABS# 0.1 K/ul 09/12/2017 Comp Metabolic Unl376 NA 140 mEq/L 09/12/2017 Comp Metabolic Noi349 K 4.3 mEq/L 09/12/2017 Comp Metabolic Bps030 CL 99 mEq/L 09/12/2017 Comp Metabolic Xhn579 CO2 33.0 mEq/L 09/12/2017 Comp Metabolic Cab792 ANION GAP 12 09/12/2017 Comp Metabolic Imp077 GLUCOSE 92 mg/dL 09/12/2017 Comp Metabolic Xrs488 Creat 0.7 mg/dL 09/12/2017 Comp Metabolic Gzi343 eGFR 84 ml/min/1.73m2 09/12/2017 Comp Metabolic Kvd619 BUN 18 mg/dL 09/12/2017 Comp Metabolic Ofq626 B/C Ratio 25.4 Ratio 09/12/2017 Comp Metabolic Vje446 CALCIUM 9.3 mg/dL 09/12/2017 Comp Metabolic Kza307 ALK PHOS 64 U/L 09/12/2017 Comp Metabolic Cau903 AST(SGOT) 13 U/L 09/12/2017 Comp Metabolic Hoj428 ALT(SGPT) 12 U/L 09/12/2017 Comp Metabolic Bfx466 BILI T 0.7 mg/dL 09/12/2017 Comp Metabolic Ylv839 ALBUMIN 4.0 g/dL 09/12/2017 Comp Metabolic Uzg459 TPRO 6.3 g/dL 09/12/2017 Comp Metabolic Uhx873 GLOB 2.3 g/dL 09/12/2017 Comp Metabolic Bha164 A/G Ratio 1.8 Ratio 09/12/2017 Comp Metabolic Hhb028 Osmo 281 mOsmo 09/12/2017 Lipid Ord30 CHOL [...] 28.8 pg 03/09/2016 Cbc With Differential Ord2 Bond% 8.5 % 03/09/2016 Cbc With Differential Ord2 [...] 2.38 K/ul 03/09/2016 Cbc With Differential Ord2 Bond ABS# 0.8 K/ul 03/09/2016 Cbc With Differential Ord2 Eos ABS# 0.2 K/ul 03/09/2016 Cbc With Differential Ord2 Baso ABS# 0.1 K/ul 03/09/2016 Comp Metabolic Iwd366 NA 138 mEq/L 03/09/2016 Comp Metabolic Qfy206 K 4.5 mEq/L 03/09/2016 Comp Metabolic Hep999 CL 100 mEq/L 03/09/2016 Comp Metabolic Hst265 CO2 33.0 mEq/L 03/09/2016 Comp Metabolic Jek427 ANION GAP 10 03/09/2016 Comp Metabolic Iil987 GLUCOSE 94 mg/dL 03/09/2016 Comp Metabolic Deb402 Creat 0.6 mg/dL 03/09/2016 Comp Metabolic Vcd649 eGFR 106 ml/min/1.73m2 03/09/2016 Comp Metabolic Ppv486 BUN 10 mg/dL 03/09/2016 Comp Metabolic Gxm771 B/C Ratio 17.2 Ratio 03/09/2016 Comp Metabolic Xlh310 CALCIUM 9.2 mg/dL 03/09/2016 Comp Metabolic Sjv367 ALK PHOS 64 U/L 03/09/2016 Comp Metabolic Emk135 AST(SGOT) 20 U/L 03/09/2016 Comp Metabolic Spb790 ALT(SGPT) 11 U/L 03/09/2016 Comp Metabolic Dsw873 BILI T 0.9 mg/dL 03/09/2016 Comp Metabolic Nfb425 ALBUMIN 4.0 g/dL 03/09/2016 Comp Metabolic Elm910 TPRO 6.1 g/dL 03/09/2016 Comp Metabolic Zku460 GLOB 2.1 g/dL 03/09/2016 Comp Metabolic Lvv934 A/G Ratio 1.9 Ratio 03/09/2016 Comp Metabolic Kii788 Osmo 274 mOsmo 03/09/2016 Free T4 Jzs785 FREE T4 0.90 ng/dL 03/09/2016 Lipid Ord30 [...] hTSH II 3.25 uIU/mL 09/07/2015 Free T4 Qya737 FREE T4 0.79 ng/dL 09/07/2015 Comp Metabolic Zsz194 NA 137 mEq/L 09/07/2015 Comp Metabolic Pvl892 K 4.0 mEq/L 09/07/2015 Comp Metabolic Yfu751 CL 98 mEq/L 09/07/2015 Comp Metabolic Jub133 CO2 30.0 mEq/L 09/07/2015 Comp Metabolic Fex419 ANION GAP 13 09/07/2015 Comp Metabolic Gel448 GLUCOSE 101 mg/dL 09/07/2015 Comp Metabolic Eri479 Creat 0.6 mg/dL 09/07/2015 Comp Metabolic Mhp255 eGFR 111 ml/min/1.73m2 09/07/2015 Comp Metabolic Thv744 BUN 16 mg/dL 09/07/2015 Comp Metabolic Zos303 B/C Ratio 28.6 Ratio 09/07/2015 Comp Metabolic Tco478 CALCIUM 9.4 mg/dL 09/07/2015 Comp Metabolic Nth358 ALK PHOS 68 U/L 09/07/2015 Comp Metabolic Sit391 AST(SGOT) 16 U/L 09/07/2015 Comp Metabolic Ewb496 ALT(SGPT) 12 U/L 09/07/2015 Comp Metabolic Nsv316 BILI T 0.9 mg/dL 09/07/2015 Comp Metabolic Pwt195 ALBUMIN 4.1 g/dL 09/07/2015 Comp Metabolic Nlf575 TPRO 6.5 g/dL 09/07/2015 Comp Metabolic Xzo171 GLOB 2.4 g/dL 09/07/2015 Comp Metabolic Vsi975 A/G Ratio 1.7 Ratio 09/07/2015 Comp Metabolic Hzi089 Osmo 275 mOsmo 09/07/2015 Cbc With Differential [...] Differential Ord2 RDW 14.4 % 09/07/2015 TSH 3784893 TSH 0.920 uIU/ML 08/28/2014 CBC 6712806 WBC 12.5 10e9/L 08/28/2014 CBC 8351429 RBC 3.44 10e12/L 08/28/2014 CBC 0067976 HGB 10.3 g/dL 08/28/2014 CBC 6057271 HCT DET 33.9 % 08/28/2014 CBC 4536492 MCV 98.5 fL 08/28/2014 CBC 6506937 MCH 29.9 pg 08/28/2014 CBC 1059921 MCHC 30.4 g/dL 08/28/2014 CBC 3958441 PLT 412 10e9/L 08/28/2014 CBC 1534454 MPV 10.2 fL 08/28/2014 CBC 8726601 NNEKA % 68.5 % 08/28/2014 CBC 8032296 LY % 20.8 % 08/28/2014 CBC 7129582 MON % 9.9 % 08/28/2014 CBC 6287632 EOS % 0.6 % 08/28/2014 CBC 6070319 BASO % 0.2 % 08/28/2014 CBC 9781610 RDW 15.8 % 08/28/2014 CBC 7023987 ABS NNEKA 8.56 10e9/L 08/28/2014 CBC 1506928 ABS LYMPH 2.60 10e9/L 08/28/2014 CBC 5247968 ABS MONO 1.24 10e9/L 08/28/2014 CBC 6404691 ABS EOS 0.08 10e9/L 08/28/2014 CBC 3202962 ABS BASO 0.03 10e9/L 08/28/2014 CBC 5722778 RDW-SD 55.4 fL 08/28/2014 GFR CALC 6154886 GFR AA >60 ML/MIN 08/28/2014 GFR CALC 1504165 GFR NON-AA >60 ML/MIN 08/28/2014 LIPID GRP HDL TEST 69 MG/DL 08/28/2014 LIPID GRP TRIG 158 MG/DL 08/28/2014 LIPID GRP TEST LDL 96 MG/DL 08/28/2014 LIPID GRP CHOL 197 MG/DL 08/28/2014 LIPID GRP RCHOL/HDL 2.86 RATIO 08/28/2014 LIPID GRP NON-HDL CH 128 MG/DL 08/28/2014 CHEM 14 7556022 AST 14 U/L 08/28/2014 CHEM 14 5669243 ALT 13 IU/L 08/28/2014 CHEM 14 6523349 BUN 15 MG/DL 08/28/2014 CHEM 14 7273609 ALBUMIN 4.2 GM/DL 08/28/2014 CHEM 14 2276027 CHLORIDE 98 MMOL/L 08/28/2014 CHEM 14 5006860 BILI TOT 1.2 MG/DL 08/28/2014 CHEM 14 8022116 ALK PHOS 68 U/L 08/28/2014 CHEM 14 2748798 SODIUM 137 MMOL/L 08/28/2014 CHEM 14 8851134 CREATININE 0.68 MG/DL 08/28/2014 CHEM 14 1506268 CALCIUM 9.1 MG/DL 08/28/2014 CHEM 14 5930643 POTASSIUM 3.7 MMOL/L 08/28/2014 CHEM 14 9887007 PROT TOT 6.2 GM/DL 08/28/2014 CHEM 14 7039296 GLUCOSE 91 MG/DL 08/28/2014 CHEM 14 0333662 BICARB 31 MMOL/L 08/28/2014 CHEM 14 8322960 ANION GAP 8 MEQ/L 08/28/2014 FREE T4 1700851 FREE T4 1.44 NG/DL 08/28/2014 LIPID GRP HDL TEST 73 MG/DL 04/16/2014 LIPID GRP TRIG 131 MG/DL 04/16/2014 LIPID GRP TEST LDL 99 MG/DL 04/16/2014 LIPID GRP CHOL 198 MG/DL 04/16/2014 LIPID GRP RCHOL/HDL 2.71 RATIO 04/16/2014 LIPID GRP NON-HDL CH 125 MG/DL 04/16/2014 CHEM 14 7507548 AST 17 U/L 04/14/2014 CHEM 14 7483865 ALT 17 IU/L 04/14/2014 CHEM 14 5066062 BUN 15 MG/DL 04/14/2014 CHEM 14 0330960 ALBUMIN 4.3 GM/DL 04/14/2014 CHEM 14 6297756 CHLORIDE 96 MMOL/L 04/14/2014 CHEM 14 7972342 BILI TOT 0.9 MG/DL 04/14/2014 CHEM 14 7753554 ALK PHOS 65 U/L 04/14/2014 CHEM 14 1352324 SODIUM 135 MMOL/L 04/14/2014 CHEM 14 8924331 CREATININE 0.69 MG/DL 04/14/2014 CHEM 14 9589794 CALCIUM 9.5 MG/DL 04/14/2014 CHEM 14 1520408 POTASSIUM 4.1 MMOL/L 04/14/2014 CHEM 14 8879277 PROT TOT 6.6 GM/DL 04/14/2014 CHEM 14 7714453 GLUCOSE 104 MG/DL 04/14/2014 CHEM 14 7143738 BICARB 34 MMOL/L 04/14/2014 CHEM 14 2614468 ANION GAP 5 MEQ/L 04/14/2014 A1C HPLC 3107283 A1C HPLC 67739-8 5.0 % 04/14/2014 TSH 9752156 TSH 2.140 uIU/ML 04/14/2014 FREE T4 1766312 FREE T4 1.56 NG/DL 04/14/2014 GFR CALC 0792835 GFR AA >60 ML/MIN 04/14/2014 GFR CALC 1984760 GFR NON-AA >60 ML/MIN 04/14/2014 CBC 7870077 WBC 12.8 10e9/L 04/14/2014 CBC 2168037 RBC 4.44 10e12/L 04/14/2014 CBC 2647047 HGB 13.2 g/dL 04/14/2014 CBC 1352196 HCT DET 41.4 % 04/14/2014 CBC 6787630 MCV 93.2 fL 04/14/2014 CBC 1263439 MCH 29.7 pg 04/14/2014 CBC 9017480 MCHC 31.9 g/dL 04/14/2014 CBC 0558192 PLT 383 10e9/L 04/14/2014 CBC 4697020 MPV 10.1 fL 04/14/2014 CBC 7133878 NNEKA % 65.5 % 04/14/2014 CBC 7268449 LY % 23.0 % 04/14/2014 CBC 8619962 MON % 9.9 % 04/14/2014 CBC 8487904 EOS % 1.3 % 04/14/2014 CBC 7899659 BASO % 0.3 % 04/14/2014 CBC 6451408 RDW 13.7 % 04/14/2014 CBC 8509516 ABS NNEKA 8.38 10e9/L 04/14/2014 CBC 3602702 ABS LYMPH 2.94 10e9/L 04/14/2014 CBC 8369101 ABS MONO 1.27 10e9/L 04/14/2014 CBC 7793758 ABS EOS 0.17 10e9/L 04/14/2014 CBC 4772232 ABS BASO 0.04 10e9/L 04/14/2014 CBC 5940210 RDW-SD 45.9 fL 04/14/2014 A1C HPLC 9598765 A1C HPLC 93108-8 4.9 % 11/13/2013 CHEM 14 0732519 AST 15 U/L 11/12/2013 CHEM 14 0106952 ALT 14 IU/L 11/12/2013 CHEM 14 7639771 BUN 14 MG/DL 11/12/2013 CHEM 14 7431917 ALBUMIN 4.3 GM/DL 11/12/2013 CHEM 14 7149494 CHLORIDE 101 MMOL/L 11/12/2013 CHEM 14 9536133 BILI TOT 0.9 MG/DL 11/12/2013 CHEM 14 5818720 ALK PHOS 67 U/L 11/12/2013 CHEM 14 5755063 SODIUM 139 MMOL/L 11/12/2013 CHEM 14 8569183 CREATININE 0.67 MG/DL 11/12/2013 CHEM 14 6137144 CALCIUM 9.5 MG/DL 11/12/2013 CHEM 14 7494666 POTASSIUM 4.1 MMOL/L 11/12/2013 CHEM 14 7475942 PROT TOT 6.5 GM/DL 11/12/2013 CHEM 14 7854486 GLUCOSE 102 MG/DL 11/12/2013 CHEM 14 6689200 BICARB 30 MMOL/L 11/12/2013 CHEM 14 2313815 ANION GAP 8 MEQ/L 11/12/2013 GFR CALC 1886231 GFR AA >60 ML/MIN 11/12/2013 GFR CALC 4838626 GFR NON-AA >60 ML/MIN 11/12/2013 TSH 1334976 TSH 2.445 uIU/ML 11/12/2013 FREE T4 8320172 FREE T4 1.09 NG/DL 11/12/2013 CBC 4919364 WBC 7.6 10e9/L 11/12/2013 CBC 5336058 RBC 4.42 10e12/L 11/12/2013 CBC 2299387 HGB 13.1 g/dL 11/12/2013 CBC 5339472 HCT DET 41.2 % 11/12/2013 CBC 3696580 MCV 93.2 fL 11/12/2013 CBC 6650932 MCH 29.6 pg 11/12/2013 CBC 2827665 MCHC 31.8 g/dL 11/12/2013 CBC 6257117 PLT 314 10e9/L 11/12/2013 CBC 5535104 MPV 10.4 fL 11/12/2013 CBC 6844036 NNEKA % 59.8 % 11/12/2013 CBC 0806538 LY % 28.1 % 11/12/2013 CBC 3712952 MON % 9.5 % 11/12/2013 CBC 2923202 EOS % 1.8 % 11/12/2013 CBC 9577454 BASO % 0.8 % 11/12/2013 CBC 0947522 RDW 13.8 % 11/12/2013 CBC 2577398 ABS NNEKA 4.54 10e9/L 11/12/2013 CBC 4332444 ABS LYMPH 2.14 10e9/L 11/12/2013 CBC 9382458 ABS MONO 0.72 10e9/L 11/12/2013 CBC 4174521 ABS EOS 0.14 10e9/L 11/12/2013 CBC 1750135 ABS BASO 0.06 10e9/L 11/12/2013 CBC 9594291 RDW-SD 46.0 fL 11/12/2013 LIPID GRP HDL TEST 66 MG/DL 11/12/2013 LIPID GRP TRIG 130 MG/DL 11/12/2013 LIPID GRP TEST LDL 108 MG/DL 11/12/2013 LIPID GRP CHOL 200 MG/DL 11/12/2013 LIPID GRP RCHOL/HDL 3.03 RATIO 11/12/2013 HS ENE ZOS 0434819 HS ENE ZOS IMMUNE 04/04/2013 A1C 0322920 A1C HPLC 19456-1 5.2 % 04/03/2013 GFR CALC 2396856 GFR AA >60 ML/MIN 03/31/2013 GFR CALC 2972614 GFR NON-AA >60 ML/MIN 03/31/2013 TSH 0515746 TSH 2.689 uIU/ML 03/31/2013 LIPID GRP HDL TEST 63 MG/DL 03/31/2013 LIPID GRP TRIG 157 MG/DL 03/31/2013 LIPID GRP TEST LDL 98 MG/DL 03/31/2013 LIPID GRP CHOL 192 MG/DL 03/31/2013 LIPID GRP RCHOL/HDL 3.05 RATIO 03/31/2013 FREE T4 8514001 FREE T4 1.19 NG/DL 03/31/2013 CHEM 14 4948399 AST 16 U/L 03/31/2013 CHEM 14 9175347 ALT 12 IU/L 03/31/2013 CHEM 14 3617422 BUN 17 MG/DL 03/31/2013 CHEM 14 4884078 ALBUMIN 4.5 GM/DL 03/31/2013 CHEM 14 3003200 CHLORIDE 98 MMOL/L 03/31/2013 CHEM 14 5471823 BILI TOT 0.7 MG/DL 03/31/2013 CHEM 14 7223279 ALK PHOS 53 U/L 03/31/2013 CHEM 14 1222902 SODIUM 137 MMOL/L 03/31/2013 CHEM 14 0320494 CREATININE 0.66 MG/DL 03/31/2013 CHEM 14 7114378 CALCIUM 9.6 MG/DL 03/31/2013 CHEM 14 0447296 POTASSIUM 4.2 MMOL/L 03/31/2013 CHEM 14 0131578 PROT TOT 6.7 GM/DL 03/31/2013 CHEM 14 7272456 GLUCOSE 101 MG/DL 03/31/2013 CHEM 14 9071489 BICARB 33 MMOL/L 03/31/2013 CHEM 14 9298449 ANION GAP 6 MEQ/L 03/31/2013 CBC 2090719 WBC 7.5 10e9/L 03/31/2013 CBC 4881927 RBC 4.39 10e12/L 03/31/2013 CBC 1774756 HGB 13.0 g/dL 03/31/2013 CBC 9849252 HCT DET 40.2 % 03/31/2013 CBC 5114473 MCV 91.6 fL 03/31/2013 CBC 3786166 MCH 29.6 pg 03/31/2013 CBC 0424573 MCHC 32.3 g/dL 03/31/2013 CBC 4955541 PLT 305 10e9/L 03/31/2013 CBC 5476620 MPV 10.4 fL 03/31/2013 CBC 9445723 NNEKA % 56.8 % 03/31/2013 CBC 2167145 LY % 30.3 % 03/31/2013 CBC 9126340 MON % 9.8 % 03/31/2013 CBC 9213450 EOS % 2.3 % 03/31/2013 CBC 8430325 BASO % 0.8 % 03/31/2013 CBC 2734515 RDW 13.2 % 03/31/2013 CBC 7661742 ABS NNEKA 4.26 10e9/L 03/31/2013 CBC 8358883 ABS LYMPH 2.27 10e9/L 03/31/2013 CBC 8042912 ABS MONO 0.74 10e9/L 03/31/2013 CBC 2137376 ABS EOS 0.17 10e9/L 03/31/2013 CBC 9529654 ABS BASO 0.06 10e9/L 03/31/2013 CBC 0546251 RDW-SD 43.2 fL 03/31/2013 LIPID GRP HDL TEST 49 MG/DL 09/11/2012 LIPID GRP TRIG 134 MG/DL 09/11/2012 LIPID GRP TEST LDL 81 MG/DL 09/11/2012 LIPID GRP CHOL 157 MG/DL 09/11/2012 LIPID GRP RCHOL/HDL 3.20 RATIO 09/11/2012 TSH 0201036 TSH 2.118 uIU/ML 09/11/2012 CBC 1648774 WBC 7.5 10e9/L 09/11/2012 CBC 7165213 RBC 3.99 10e12/L 09/11/2012 CBC 9049220 HGB 11.7 g/dL 09/11/2012 CBC 8005105 HCT DET 37.7 % 09/11/2012 CBC 8770240 MCV 94.5 fL 09/11/2012 CBC 6620767 MCH 29.3 pg 09/11/2012 CBC 0060457 MCHC 31.0 g/dL 09/11/2012 CBC 3532985 PLT 384 10e9/L 09/11/2012 CBC 8708277 MPV 11.0 fL 09/11/2012 CBC 2975278 NNEKA % 51.7 % 09/11/2012 CBC 4726184 LY % 35.2 % 09/11/2012 CBC 9887050 MON % 10.4 % 09/11/2012 CBC 3111464 EOS % 2.3 % 09/11/2012 CBC 3048639 BASO % 0.4 % 09/11/2012 CBC 2184420 RDW 14.2 % 09/11/2012 CBC 9844644 ABS NNEKA 3.88 10e9/L 09/11/2012 CBC 9727489 ABS LYMPH 2.64 10e9/L 09/11/2012 CBC 5616888 ABS MONO 0.78 10e9/L 09/11/2012 CBC 6687335 ABS EOS 0.17 10e9/L 09/11/2012 CBC 7067067 ABS BASO 0.03 10e9/L 09/11/2012 CBC 5562894 RDW-SD 47.1 fL 09/11/2012 CHEM 14 1467927 AST 16 U/L 09/11/2012 CHEM 14 4538503 ALT 15 IU/L 09/11/2012 CHEM 14 6871207 BUN 11 MG/DL 09/11/2012 CHEM 14 2637411 ALBUMIN 4.2 GM/DL 09/11/2012 CHEM 14 5605117 CHLORIDE 101 MMOL/L 09/11/2012 CHEM 14 4653132 BILI TOT 0.8 MG/DL 09/11/2012 CHEM 14 8593495 ALK PHOS 57 U/L 09/11/2012 CHEM 14 5035322 SODIUM 141 MMOL/L 09/11/2012 CHEM 14 7660657 CREATININE 0.62 MG/DL 09/11/2012 CHEM 14 7814891 CALCIUM 9.5 MG/DL 09/11/2012 CHEM 14 7122791 POTASSIUM 4.7 MMOL/L 09/11/2012 CHEM 14 9440164 PROT TOT 6.6 GM/DL 09/11/2012 CHEM 14 5161378 GLUCOSE 90 MG/DL 09/11/2012 CHEM 14 6921083 BICARB 32 MMOL/L 09/11/2012 CHEM 14 6673823 ANION GAP 8 MEQ/L 09/11/2012 A1C HPLC 9417174 A1C HPLC 10323-2 4.5 % 09/11/2012 GFR CALC 5609975 GFR AA >60 ML/MIN 09/11/2012 GFR CALC 6337608 GFR NON-AA >60 ML/MIN 09/11/2012 FREE T4 4721431 FREE T4 1.30 NG/DL 09/11/2012 BMP 0665541 GLUCOSE 93 MG/DL 04/16/2012 BMP 9214080 CREATININE 0.64 MG/DL 04/16/2012 BMP 5724036 BUN 12 MG/DL 04/16/2012 BMP 5376682 SODIUM 139 MMOL/L 04/16/2012 BMP 2168111 POTASSIUM 4.1 MMOL/L 04/16/2012 BMP 5605459 CHLORIDE 99 MMOL/L 04/16/2012 BMP 5825247 BICARB 32 MMOL/L 04/16/2012 BMP 7990110 ANION GAP 8 MEQ/L 04/16/2012 BMP 5562794 CALCIUM 9.8 MG/DL 04/16/2012 CBC 9902585 WBC 8.5 10e9/L 04/16/2012 CBC 5995903 RBC 3.98 10e12/L 04/16/2012 CBC 2594942 HGB 11.5 g/dL 04/16/2012 CBC 4528730 HCT DET 36.7 % 04/16/2012 CBC 9391384 MCV 92.2 fL 04/16/2012 CBC 2663808 MCH 28.9 pg 04/16/2012 CBC 9630984 MCHC 31.3 g/dL 04/16/2012 CBC 2972777 PLT 321 10e9/L 04/16/2012 CBC 0381041 MPV 10.2 fL 04/16/2012 CBC 7068383 NNEKA % 64.3 % 04/16/2012 CBC 7142195 LY % 24.3 % 04/16/2012 CBC 6513491 MON % 9.0 % 04/16/2012 CBC 3827868 EOS % 1.9 % 04/16/2012 CBC 7916666 BASO % 0.5 % 04/16/2012 CBC 0824880 RDW 13.7 % 04/16/2012 CBC 9726155 ABS NNEKA 5.47 10e9/L 04/16/2012 CBC 9986358 ABS LYMPH 2.07 10e9/L 04/16/2012 CBC 6636685 ABS MONO 0.77 10e9/L 04/16/2012 CBC 9544101 ABS EOS 0.16 10e9/L 04/16/2012 CBC 2048357 ABS BASO 0.04 10e9/L 04/16/2012 CBC 3509417 RDW-SD 44.6 fL 04/16/2012 GFR CALC 6879751 GFR AA >60 ML/MIN 04/16/2012 GFR CALC 6297738 GFR NON-AA >60 ML/MIN 04/16/2012 URINALYSIS NONAUTO W/O SCOPE 04506 Specific [place] 1.015 DateTime(Free Text in Aprima) URINALYSIS NONAUTO W/O SCOPE 02676 PH 6.0 DateTime(Free Text in Aprima) URINALYSIS NONAUTO W/O SCOPE 81085 GLUCOSE neg DateTime( Free Text in Aprima) URINALYSIS NONAUTO W/O SCOPE 83633 Protein neg DateTime( Free Text in Aprima) URINALYSIS NONAUTO W/O SCOPE 37140 Blood 1+ DateTime(Free Text in Aprima) URINALYSIS NONAUTO W/O SCOPE 49145 Bilirubin neg DateTime(Free Text in Aprima) URINALYSIS NONAUTO W/O SCOPE 87776 Ketones neg DateTime( Free Text in Aprima) URINALYSIS NONAUTO W/O SCOPE 70975 Urobilinogen neg DateTime(Free Text in Aprima) URINALYSIS NONAUTO W/O SCOPE 64786 Nitrite positive DateTime(Free Text in Aprima) URINALYSIS NONAUTO W/O SCOPE 09435 Leukocytes 1+ DateTime(Free Text in Aprima) UA 29887 Specific [place] 1.015 DateTime(Free Text in Aprima ) UA 74315 PH 5 DateTime(Free Text in Aprima) UA 91048 GLUCOSE neg DateTime(Free Text in Aprima) UA 45104 Protein neg DateTime(Free Text in Aprima) UA 53968 Blood neg DateTime(Free Text in Aprima) UA 89612 Bilirubin neg DateTime(Free Text in Aprima) UA 45022 Ketones neg DateTime(Free Text in Aprima) UA 77992 Urobilinogen neg DateTime(Free Text in Aprima) UA 19099 Nitrite neg DateTime(Free Text in Aprima) UA 70621 Leukocytes neg DateTime(Free Text in Aprima) URINALYSIS NONAUTO W/O SCOPE 30474 Specific [place] 1.010 DateTime(Free Text in Aprima) URINALYSIS NONAUTO W/O SCOPE 96266 PH 5.0 DateTime(Free Text in Aprima) URINALYSIS NONAUTO W/O SCOPE 47462 GLUCOSE NEG DateTime( Free Text in Aprima) URINALYSIS NONAUTO W/O SCOPE 81931 Protein NEG DateTime( Free Text in Aprima) URINALYSIS NONAUTO W/O SCOPE 31822 Blood NEG DateTime(Free Text in Aprima) URINALYSIS NONAUTO W/O SCOPE 15976 Bilirubin NEG DateTime(Free Text in Aprima) URINALYSIS NONAUTO W/O SCOPE 97155 Ketones NEG DateTime( Free Text in Aprima) URINALYSIS NONAUTO W/O SCOPE 52850 Urobilinogen NEG DateTime(Free Text in Aprima) URINALYSIS NONAUTO W/O SCOPE 94513 Nitrite NEG DateTime( Free Text in Aprima) URINALYSIS NONAUTO W/O SCOPE 16285 Leukocytes ++ DateTime(Free Text in Aprima) URINALYSIS NONAUTO W/O SCOPE 38912 Specific [place] 1.010 DateTime(Free Text in Aprima) URINALYSIS NONAUTO W/O SCOPE 37278 PH 6.0 DateTime(Free Text in Aprima) URINALYSIS NONAUTO W/O SCOPE 63592 GLUCOSE NEG DateTime( Free Text in Aprima) URINALYSIS NONAUTO W/O SCOPE 73866 Protein NEG DateTime( Free Text in Aprima) URINALYSIS NONAUTO W/O SCOPE 19511 Blood NEG DateTime(Free Text in Aprima) URINALYSIS NONAUTO W/O SCOPE 61560 Bilirubin NEG DateTime(Free Text in Aprima) URINALYSIS NONAUTO W/O SCOPE 41496 Ketones NEG DateTime( Free Text in Aprima) URINALYSIS NONAUTO W/O SCOPE 48511 Urobilinogen NEG DateTime(Free Text in Aprima) URINALYSIS NONAUTO W/O SCOPE 01179 Nitrite NEG DateTime( Free Text in Aprima) URINALYSIS NONAUTO W/O SCOPE 41617 Leukocytes NEG DateTime(Free Text in Aprima) URINALYSIS NONAUTO W/O SCOPE 56615 Specific [place] 1.010 DateTime(Free Text in Aprima) URINALYSIS NONAUTO W/O SCOPE 01191 PH 5 DateTime(Free Text in Aprima) URINALYSIS NONAUTO W/O SCOPE 49576 GLUCOSE neg DateTime( Free Text in Aprima) URINALYSIS NONAUTO W/O SCOPE 57130 Protein neg DateTime( Free Text in Aprima) URINALYSIS NONAUTO W/O SCOPE 135[address] Blood neg DateTime(Free Text in Aprima) URINALYSIS NONAUTO W/O SCOPE 99598 Bilirubin neg DateTime(Free Text in Aprima) URINALYSIS NONAUTO W/O SCOPE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 Moderate 09/12/2017 Patient Education: Patient [...] allergy spray. 08/31/2017 Appointment: [facility] London [phone] (30 min) Complex 08/31/2017 Patient Education: Patient Medication Summary Completed 08/31/2017 Visit Plan: URI - Pt advised to increase fluids, vitamin C. Discussed natural and expected course of this diagnosis and need to alert me if symptoms do not follow expected course, or if any worse. RX sent to patient' s pharmacy. 08/09/2017 Appointment: Chaparrita Arrieta WPtel: [phone] [phone] (30 min) Complex 08/09/2017 Patient Education: [...] refilled hydrocodone. 05/07/2017 Appointment: Concepción Flanagan WPtel[phone] [facility] [place] (15 min) Moderate [...] surrogate. 04/12/2017 Appointment: [facility] [place] [phone] [facility] - Annual Wellness Visit 04/12/2017 Patient Education: Patient Medication Summary Completed 04/12/2017 Appointment: Nurse Visit 02/15/2017 Patient Education: Patient Medication Summary Completed 02/15/2017 Visit Plan: Oecur-amcqcgapuo-dbdos zpack when finished with cipro-follow up chest [...] day-follow up Sunday02/02/2017 Appointment: Chaparrita Arrieta WPtel: [phone] [phone] (15 min) Moderate 02/02/2017 Patient Education: Patient Medication Summary Completed 02/02/2017 Patient Education: Obesity Completed 02/02/2017 Visit Plan: Sinusitis - Pt has acute infection - pain in face, maxillary region, Pt informed to use decongestant, RX given to patient, sinus rinses also recommended. Call if symptoms do not show improvement. 01/15/2017 Appointment: Chaparrita Arrieta WPtel[phone] (10 min) Simple 01/15/2017 Patient Education: Patient [...] today 01/04/2017 Appointment: Concepción Flanagan WPtel[facility] (15 min) Moderate 01/04/2017 [...] medication (lexapro). 09/07/2016 Appointment: Concepción Flanagan WPtel: [facility] (30 min) Complex 09/07/2016 [...] at home. 07/06/2016 Appointment: Concepción Flanagan WPtel: [facility] (15 min) Moderate 07/06/2016 [...] TWICE DAILY 06/08/2016 Appointment: Concepción Flanagan WPtel: [facility] (15 min) Moderate 06/08/2016 [...] peripheral edema. 04/06/2016 Appointment: Concepción Flanagan WPtel: [facility] (15 min) Moderate 04/06/2016 [...] for Mikala. 01/18/2016 Appointment: Concepción Flanagan WPtel: [address] [place], [place] [address] (15 min) Moderate 01/18/2016 Patient Education: Patient [...] discuss with her son who is a [employer] - and consider re-evaluation for nasal pillows [...] at home. 10/13/2014 Appointment: Concepción Flanagan WPtel[phone] Follow up 10/13/2014 Patient Education: Patient Medication [...] . 08/28/2014 Appointment: Concepción Flanagan WPtel: [facility] Follow up 08/28/2014 Patient Education: Patient Medication [...] creatinine. 04/16/2014 Appointment: Concepción Flanagan WPtel: [phone] [facility] Follow up 04/16/2014 Patient Education: Patient Medication Summary Completed 04/16/2014 Patient Education: Patient Medication Summary Completed 04/14/2014 Patient Education: Hypertension Completed 04/14/2014 Visit Plan: Wound Instructions - Pt was instruced to keep the wound clean, wash with antibacterial soap, use triple antibiotic ointment, call if redness, pustular drainage, or any other acute conerns. 01/27/2014 Appointment: Concepción Flanagan WPtel: [phone] [facility] Surgical Procedure 01/27/2014 Patient [...] home eval. 01/21/2014 Appointment: Concepción Flanagan WPtel: [address] [place], [place] [phone] Follow up 01/21/2014 Patient Education: Patient Medication Summary Completed 01/21/2014 Patient Education: Hypertension Completed 01/21/2014 Visit Plan: Hypotension - Bradycardia - pt to stop her metroprolol - check bp and heart rate twice daily and monitor symptoms. Call if bp uncontrolled- or heart rate to elevated. 01/07/2014 Appointment: Concepción Flanagan WPtel: [address] [place], [place] [id number] Follow up 01/07/2014 Patient Education: Hypertension Completed [...] and swallow 11/12/2013 Appointment: Chaparrita Arrieta WPtel: [address] [place], [place] [phone] [facility] 11/12/2013 Patient Education: Patient Medication Summary Completed 11/12/2013 Patient Education: Hypertension Completed 11/12/2013 Visit Plan: Sinusitis - Pt has acute infection - pain in face, maxillary region, Pt informed to use decongestant, RX given to patient, sinus rinses also recommended. Call if symptoms do not show improvement. 10/09/2013 Appointment: Chaparrita Arrieta WPtel: [address] [place], [place] [phone] Sick 10/09/2013 Patient Education: Patient Medication Summary [...] UA 04/03/2013 Appointment: Concepción Flanagan WPtel: [phone] [facility] Follow up 04/03/2013 Patient Education: Patient Medication Summary Completed 04/03/2013 Patient Education: Hypertension Completed 04/03/2013 Patient Education: Patient Medication Summary Completed 03/31/2013 Patient Education: Hypertension Completed 03/31/2013 Visit Plan: ua performed - sent for culture if indicated. 03/21/2013 Appointment: Concepción Flanagan WPtel: [phone] [facility] Lab Draw 03/21/2013 Patient Education: Patient [...] peripheral edema. 01/06/2013 Appointment: Concepción Flanagan WPtel: [phone] [facility] Follow up 01/06/2013 Patient Education: Patient Medication Summary Completed 01/06/2013 Patient Education: Hypertension Completed 01/06/2013 Visit Plan: Hjpbjasdz-Dqhsid-stdqnwcl not well controlled- KENALOG injection today in [...] edema. 10/28/2012 Appointment: Concepción Flanagan WPtel: [phone] Follow up 10/28/2012 Patient Education: Patient Medication [...] recommendations. 09/30/2012 Appointment: Concepción Flanagan WPtel: [phone] [place] Follow up 09/30/2012 Patient Education: Patient Medication Summary Completed 09/30/2012 Patient Education: Hypertension Completed 09/30/2012 Appointment: Concepción Flanagan WPtel: [phone] [facility] [place] Lab Draw 09/11/2012 Patient Education: Patient [...] - resolved 08/14/2012 Appointment: Concepción Flanagan WPtel: [address] [place], [place] [phone] Follow up 08/14/2012 Patient Education: Patient Medication Summary Completed 08/14/2012 Patient Education: Hypertension Completed 08/14/2012 Visit Plan: Cellulitis - start with generic Bactrim DS as directed, return to clinic as previously directed, call for acute change in symptoms, worsening redness, warmth, discharge. 08/05/2012 Appointment: Concepción Flanagan WPtel: [address] [place], [place] [phone] Follow up 08/05/2012 Patient Education: Patient Medication [...] soften stools. 07/15/2012 Appointment: Concepción Flanagan WPtel: [address] [place], [place] [phone] [facility] follow up 07/15/2012 Patient Education: Patient Medication Summary Completed 07/15/2012 Patient Education: Hypertension Completed 07/15/2012 Visit Plan: Subungual discoloratiion of toenail- June 10 pt is to see Dr[address] Bee - I have discussed the case with the pt and Dr. bee and she will likely have a biopsy of the digit and avulsion of the nail. 05/27/2012 Appointment: Concepción Flanagan WPtel: [address] [place], [place] [phone] [facility] 05/27/2012 Patient Education: Patient Medication Summary Completed 05/27/2012 Appointment: Chaparrita Arrieta WPtel: [address] [place], [place] [phone] Follow up 05/16/2012 Visit Plan: Obesity - [...] vaccine 05/03/2012 Appointment: Chaparrita Arrieta WPtel: [facility]5 [facility] [place] [address] Follow up 05/03/2012 Patient Education: Patient Medication Summary Completed 05/03/2012 Visit Plan: Wound Instructions - Pt was instruced to keep the wound clean, wash with antibacterial soap, use triple antibiotic ointment, call if redness, pustular drainage, or any other acute conerns. 04/23/2012 Appointment: Concepción Flanagan WPtel: [phone] [facility] [place] Surgical Procedure 04/23/2012 Patient Education: Patient Medication Summary Completed 04/23/2012 Appointment: Concepción Flanagan WPtel: [phone] [facility] [place] Lab Draw 04/16/2012 Patient Education: Patient [...] readings at home. Recommend follow up with supervisor incising for clearance before knee surgery. Will get [...] thighs. 03/25/2012 Appointment: Concepción Flanagan WPtel: [phone] [place] 03/25/2012 Patient Education: [...] lesion. 03/12/2012 Appointment: Chap[facility]rita Arrieta [facility]Ptel[phone] [place] Other 03/12/2012 Patient Education: Patient Medication Summary [...] home. 01/23/2012 Appointment: Concepción Flanagan WPtel: [phone] Other 01/23/2012 Patient Education: Patient Medication Summary Completed 01/23/2012 Patient Education: High Blood Pressure: Essential Hypertension Completed 2011 Visit Plan: Breast iwnb-wtxv-sgsraxnzk natural and expected course of this diagnosis and to alert me if symptoms do not follow expected course, or if any worse. Plan for diagnostic mammogram, in meantime, instructed patient to get more supportive bra, use anti-inflammatories and monitor symptoms. Patient verbalized understanding of plan. 01/12/2012 Appointment: Chaparrita Arrieta WPtel: [facility]3 [place] [phone] [place] [address] Other 01/12/2012 Patient Education: Patient Medication Summary [...] medications. 12/25/2011 Appointment: Concepción Flanagan WPtel: [facility] [address] Other 12/25/2011 Patient Education: Patient Medication Summary [...] Completed 2011 Appointment: Chaparrita Arrieta WPtel: [phone] [place] Lab Draw 12/01/2011 Patient Education: Patient [...] acutely worsen. 09/20/2011 Appointment: Concepción Flanagan WPtel: [facility]7 [facility] Other 09/20/2011 Patient Education: Patient Medication Summary Completed 09/20/2011 Patient Education: High Blood Pressure: Essential Hypertension Completed 2011 Appointment: Concepción Flanagan WPtel: [facility]8 [facility] Other 09/13/2011 Visit Plan: Hypertension - The [...] benefits of treament with the above medications. Vmjzxot-vdpsdqrl-WF negative 09/06/2011 Appointment: Chaparrita Arrieta WPtel: [phone] [phone] Other 09/06/2011 Patient Education: Patient Medication Summary [...] worsen. 08/30/2011 Appointment: Concepción Flanagan WPtel: [facility]4 [address] Other 08/30/2011 Patient Education: Patient Medication [...] patient's pharmacy. 08/23/2011 Appointment: Chaparrita Arrieta WPtel: [address] [place] [address] Other 08/23/2011 Patient Education: Patient Medication Summary Completed 08/23/2011 Visit Plan: Labial cyst-discussed natural and expected course of this diagnosis and to alert me if symtpoms do not follow expected course, or if any worse. Patient and verbalized understanding. 08/09/2011 Appointment: Chaparrita Arrieta WPtel: [facility] [place] [phone] Other 08/09/2011 Patient Education: Patient Medication Summary [...] not improving. 05/04/2011 Appointment: Concepción Flanagan WPtel: [phone] [place] Other 05/04/2011 Patient Education: Patient Medication [...] 40mg daily. 04/19/2011 Appointment: Chaparrita Arrieta WPtel: [phone] [place] Other 04/19/2011 Patient Education: Patient Medication [...] samples given of nexium 40mg daily. . Sinusitis - Pt has acute infection [...] come out to do home eval. . Hypertension - uncontrolled - the patient's [...] do not improve or if they worsen. Use your albuterol inhaler 1-2 puffs every 4-6 hours as needed for cough/SOA. Call if your symptoms do not improve, or if any worse.. Ajndmyhqd-Thzvjd-gkskqild not well controlled-KENALOG injection today in the [...] acute conerns. Sutures removed today Influenza vaccine . Cellulitis - start with generic Bactrim [...] discuss with her son who is a Supervisor [employer] - and consider re-evaluation for nasal pillows [...] pain - supportive care at this time. Recommend diagnostic mammogram with ultrasound if needed Get supportive bra and make sure your breasts are well suppported. Recommend aleve twice daily and monitor symptoms. . Breast wfrx-modh-tpjqtcgqo natural and expected course of this diagnosis [...] assure normal liver response to medications. . Wound Instructions - Pt was instruced [...] keeping patient stabilized during the removal process. stop metoprolol blood pressure and heart rate check twice daily . Hypotension - Bradycardia - pt to stop her metroprolol - check bp and heart rate twice daily and monitor symptoms. Call if bp uncontrolled- or heart rate to elevated. Cymbalta 30mg daily Call with any side [...] benefits of treament with the above medications. Macvlek-svasmiah-ZF negative . Hypertension - well controlled - [...] Call if symptoms do not show improvement. RECOMMEND SHINGLES VACCINE . Medicare Exam - [...] infection. Patient and verbalized understanding of plan. cefdinir - antibiotic twice daily x 2 weeks diflucan antifungal one time daily x 2 weeks use your sinus rinse at least twice each morning and evening . Acute Maxillary Sinusitis - if not improving - pt would like to see an ENT - [facility] Tompkins in [place]. Treatment as follows: cefdinir - antibiotic twice [...] symptoms - refilled hydrocodone. . Hypertension - uncontrolled - the patient's [...] change in blood pressure readings at home. MIRALAX TO BE STARTED AND TAKEN DAILY [...] use this daily to help soften stools. Continue warm moist compresses for the next several days. Keep clean and dry Call for fever, increased pain, or other concerns. . Labial cyst-discussed natural and expected course of this diagnosis and to alert me if symtpoms do not follow expected course, or if any worse. Patient and verbalized understanding. . Allergies - chronic - recommended pt [...] pt to call if symptoms acutely worsen. Appointment with cardiology-Dr. Luther For your pain, [...] readings at home. Recommend follow up with supervisor incising for clearance before knee surgery. Will get [...] daytime fatigue improved-will fax today's note to [employer] for re-certification of oxygen. . Hypertension - [...] daytime fatigue improved-will fax today's note to [employer] for re-certification of oxygen. . Sinusitis - [...] in blood pressure readings at home. . Edema - pt has been advised [...] months based on previous levels of control. Recommend nasal saline rinse . Sinusitis - [...] worse. RX sent to patient's pharmacy. . Hupqi-bpycckzmpa-gdzgm zpack when finished with cipro- follow up [...]
--- OUTSIDE RECORDS SUMMARY | 2018-12-27 11:10 | XMS REPORT | CCD ---
Author Author Chaparrita Arrieta Organization [facility] Address [address] [place] [address] Phone Care Team Providers Care Case Maker Name Role Phone [facility] Un[facility] CCM Unavailable Summary Purpose Interface Exchange Insurance Providers Payer name Policy type / Coverage type Covered constitution party ID Effective Begin Date Effective End Date WPS Medicare Part B Medicare Part B [id number] 2018 Unknown AARP Medicare Part B [id number] Unknown Family history Son Diagnosis Age At [...] status Unknown 04/19/[address]: 8985929 Quit over 10 years ago 40 pack/year [...] ICD-9: 401.1 ICD-10: I10 Active 07/05/2016 Unknown Mixed hyperlipidemia ICD-9: 272.4 ICD-10: E78.2 [...] hypertension ICD-9: 401.1 ICD-10: I10 07/05/2016 Active Mixed hyperlipidemia ICD-9: 272.4 ICD-10: E78.2 [...] Fill Instructions Xanax 0.25 mg tablet RxNorm: 257746 1-2 Tablet(s) PO QHS as needed insomnia 08/26/2018 11/23/2018 Active Voltaren 1 % topical gel RxNorm: 962688 APPLY TWO GRAMS TOPICALLY FOUR TIMES A DAY BILATERAL KNEES AND LOWER BACK 06/26/2018 09/23/2018 Active Lasix 40 mg tablet RxNorm: 772176 TAKE ONE TABLET BY MOUTH DAILY 06/20/2018 12/16/2018 Active Voltaren 1 % topical gel RxNorm: 746393 2 Gram(s) TOP QID bilateral knees and low back 05/29/2018 06/25/2018 Inactive Synthroid 50 mcg tablet RxNorm: 298839 Tablet(s) TAKE ONE TABLET BY MOUTH DAILY 05/17/2018 11/12/2018 Active Synthroid 50 mcg tablet RxNorm: 665842 TAKE ONE TABLET BY MOUTH DAILY 05/16/2018 05/16/2018 Inactive hydrocodone 5 mg-acetaminophen 325 mg tablet RxNorm: 184326 1/2 Tablet(s) PO QID as needed 05/15/2018 06/13/2018 Inactive Keflex 500 mg capsule RxNorm: 989986 1 Capsule(s) PO TID PRN 11/201705/06/2018 Inactive Silvadene 1 % topical cream RxNorm: 735008 1 Application TOP BID 04/30/2018 05/09/2018 Inactive Anusol-HC 25 mg rectal suppository RxNorm: 4592394 1 Suppository PRN INSERT 1 RECTALLY DAILY NEEDED 04/25/2018 No Stop Date Active Colace 100 mg capsule RxNorm: 4935727 1 Capsule(s) PO daily as needed 04/25/2018 No Stop Date Active meloxicam 15 mg tablet RxNorm: 543320 1 Tablet(s) PO daily TAKE ONE TABLET BY MOUTH ONE TIME A DAY 04/25/20182018 Active Silvadene 1 % topical cream RxNorm: 696558 1 Application TOP BID 04/25/2018 04/29/2018 Inactive Benicar 40 mg tablet RxNorm: 360754 TAKE ONE TABLET BY MOUTH DAILY 04/04/2018 03/29/2019 Active Xanax 0.25 mg tablet RxNorm: 212453 1-2 Tablet(s) PO QHS as needed insomnia 03/07/2018 06/04/2018 Inactive Lasix 40 mg tablet RxNorm: 909810 TAKE ONE TABLET BY MOUTH DAILY 01/07/2018 06/19/2018 Inactive Crestor 10 mg tablet RxNorm: 577174 TAKE 1 TABLET BY MOUTH ON SUNDAY, SUNDAY, AND Sunday11/20/2017 05/18/2018 Inactive Synthroid 50 mcg tablet RxNorm: 271482 TAKE ONE TABLET BY MOUTH DAILY 11/14/2017 05/12/2018 Inactive Cartia XT 240 mg capsule,extended release RxNorm: 136333 TAKE ONE CAPSULE BY MOUTH DAILY 09/12/2017 09/06/2018 Active Diflucan 150 mg tablet RxNorm: 913883 1 Tablet(s) PO daily 09/25/2017 Inactive cefdinir 300 mg capsule RxNorm: 688118 1 Capsule(s) PO BID 09/25/2017 Inactive prednisone 20 mg tablet RxNorm: 986462 2 Tablet(s) PO daily 12/201709/04/2017 Inactive Xanax 0.25 mg tablet RxNorm: 521469 1-2 Tablet(s) PO QHS as needed insomnia 08/28/2017 11/24/2017 Inactive Keflex 500 mg capsule RxNorm: 513404 1 Capsule(s) PO TID 201708/27/2017 Inactive Keflex 500 mg capsule RxNorm: 245993 1 Capsule(s) PO TID 201709/03/2017 Inactive Klor-Con 10 mEq tablet,extended release RxNorm: 314757 TAKE ONE TABLET BY MOUTH TWICE A DAY 08/23/2017 08/17/2018 Inactive cefdinir 300 mg capsule RxNorm: 430335 1 Capsule(s) PO BID 08/12/2017 Inactive cefdinir 300 mg capsule RxNorm: 803087 1 Capsule(s) PO BID 08/19/2017 Inactive Kenalog 40 mg/mL suspension for injection RxNorm: 7453703 1 Milliliter(s) Inj 08/09/2017 08/09/2017 Inactive ceftriaxone 500 mg solution for injection RxNorm: 9193687 Inj 08/09/2017 08/09/2017 Inactive Zithromax Z-Hebert 250 mg tablet RxNorm: 935541 1 Tablet(s) PO UD 08/09/2017 08/13/2017 Inactive Singulair 10 mg tablet RxNorm: 716885 TAKE ONE TABLET BY MOUTH EVERY DAY 08/03/2017 11/25/2018 Active Xanax 0.25 mg tablet RxNorm: 645975 1-2 Tablet(s) PO QHS as needed insomnia 07/25/2017 05/28/2018 Inactive Benicar 40 mg tablet RxNorm: 378016 TAKE ONE TABLET BY MOUTH DAILY 07/09/2017 04/03/2018 Inactive Lasix 40 mg tablet RxNorm: 876389 TAKE ONE TABLET BY MOUTH DAILY 07/09/2017 01/04/2018 Inactive Synthroid 50 mcg tablet RxNorm: 596647 1 Tablet(s) PO daily TAKE ONE TABLET BY MOUTH DAILY 05/21/2017 11/13/2017 Inactive Must be name brand Lasix 40 mg tablet RxNorm: 454732 TAKE ONE TABLET BY MOUTH DAILY 04/12/2017 07/08/2017 Inactive Zithromax Z-Hebert 250 mg tablet RxNorm: 223884 1 Tablet(s) PO UD 02/05/2017 02/09/2017 Inactive start with finished with cipro Cipro 500 mg tablet RxNorm: 802737 1 Tablet(s) PO BID 201602/07/2017 Inactive prednisone 20 mg tablet RxNorm: 016846 1 Tablet(s) PO BID 01/1501/19/2017 Inactive take 1 in the morning and 1 at noon calcium carbonate 600 mg calcium (1,500 mg) tablet RxNorm: 318070 1 Tablet(s) PO daily 01/04/2017 No Stop Date Active Kenalog 40 mg/mL suspension for injection RxNorm: 5842926 1 Milliliter(s) Inj 01/04/2017 01/04/2017 Inactive Anusol-HC 25 mg rectal suppository RxNorm: 1988456 1 Suppository PRN INSERT 1 RECTALLY DAILY NEEDED 01/04/20172016 Inactive Lasix 40 mg tablet RxNorm: 923923 TAKE ONE TABLET BY MOUTH DAILY 12/20/2016 04/11/2017 Inactive Cartia XT 240 mg capsule,extended release RxNorm: 996681 TAKE ONE CAPSULE BY MOUTH DAILY 12/20/2016 09/11/2017 Inactive Synthroid 50 mcg tablet RxNorm: 603645 1 Tablet(s) PO daily TAKE ONE TABLET BY MOUTH DAILY 11/27/2016 05/20/2017 Inactive Must be name brand meloxicam 15 mg tablet RxNorm: 669409 Tablet(s) TAKE ONE TABLET BY MOUTH ONE TIME A DAY 11/27/2016 06/24/2017 Inactive Crestor 10 mg tablet RxNorm: 427061 TAKE 1 TABLET BY MOUTH ON SUNDAY, SUNDAY, AND Sunday11/13/2016 10/14/2017 Inactive Lexapro 10 mg tablet RxNorm: 275900 1 Tablet(s) PO daily 201601/03/2017 Inactive please make sure that her RX for lexapro is a 10mg dose - delete the 5mg lexapro pill - this is FYI Klor-Con 10 mEq tablet,extended release RxNorm: 775906 TAKE ONE TABLET BY MOUTH TWICE A DAY 08/29/2016 02/24/2017 Inactive Kenalog 40 mg/mL suspension for injection RxNorm: 2805345 Milliliter(s) Inj 08/23/2016 08/23/2016 Inactive cefdinir 300 mg capsule RxNorm: 983015 1 Capsule(s) PO BID 08/28/2016 Inactive take probiotic while on abx Zithromax Z-Hebert 250 mg tablet RxNorm: 463939 1 Tablet(s) PO UD 08/11/2016 09/06/2016 Inactive Z PACK DIRECTED Lexapro 5 mg tablet RxNorm: 667649 TAKE ONE TABLET BY MOUTH EVERY EVENING 07/18/2016 09/06/2016 Inactive Singulair 10 mg tablet RxNorm: 590052 TAKE ONE TABLET BY MOUTH EVERY DAY 07/17/2016 08/02/2017 Inactive Benicar 40 mg tablet RxNorm: 481280 TAKE ONE TABLET BY MOUTH DAILY 07/17/2016 07/08/2017 Inactive Lexapro 10 mg tablet RxNorm: 723016 1 Tablet(s) PO daily 201509/06/2016 Inactive diltiazem ER 180 mg capsule,extended release RxNorm: 115780 TAKE ONE CAPSULE BY MOUTH DAILY 06/15/2016 07/05/2016 Inactive Lexapro 10 mg tablet RxNorm: 403404 1 Tablet(s) PO daily 201506/15/2016 Inactive gabapentin 600 mg tablet RxNorm: 992322 TAKE ONE TABLET BY MOUTH EVERY NIGHT AT BEDTIME NEEDED 04/27/2016 04/11/2017 Inactive Cartia XT 240 mg capsule,extended release RxNorm: 744106 1 Capsule(s) PO daily TAKE ONE CAPSULE BY MOUTH ONCE A DAY 04/17/2016 12/19/2016 Inactive Benicar 40 mg tablet RxNorm: 244922 1 Tablet(s) PO daily 201507/16/2016 Inactive she can do 90 days if she wants to Lexapro 5 mg tablet RxNorm: 769397 1 Tablet(s) PO QPM 201506/07/2016 Inactive Synthroid 50 mcg tablet RxNorm: 539485 1 Tablet(s) PO daily TAKE ONE TABLET BY MOUTH DAILY 01/18/2016 07/15/2016 Inactive Colace 100 mg capsule RxNorm: 4951855 1 Capsule(s) PO daily 04/24/2018 Inactive hydrocodone 5 mg-acetaminophen 325 mg tablet RxNorm: 705479 1/2 Tablet(s) PO QID as needed 01/18/2016 02/16/2016 Inactive Synthroid 50 mcg tablet RxNorm: 445303 Tablet(s) TAKE ONE TABLET BY MOUTH DAILY 12/23/2015 01/17/2016 Inactive Benicar 40 mg tablet RxNorm: 586711 1 Tablet(s) PO daily 201512/12/2015 Inactive Benicar 40 mg tablet RxNorm: 816927 1 Tablet(s) PO daily 201504/10/2016 Inactive meloxicam 15 mg tablet RxNorm: 761182 TAKE ONE TABLET BY MOUTH ONE TIME A DAY 11/12/2015 06/08/2016 Inactive meloxicam 15 mg tablet RxNorm: 239364 Tablet(s) TAKE ONE TABLET BY MOUTH ONE TIME A DAY 11/11/2015 11/11/2015 Inactive Lasix 40 mg tablet RxNorm: 501475 Tablet(s) TAKE ONE TABLET BY MOUTH EVERY DAY 10/19/2015 12/19/2016 Inactive diltiazem ER 180 mg capsule,extended release RxNorm: 424466 1 Capsule(s) daily TAKE ONE CAPSULE BY MOUTH ONCE A DAY 09/27/2015 04/16/2016 Inactive Crestor 10 mg tablet RxNorm: 558419 1 Tablet(s) PO Sun09/17/2015 07/12/2016 Inactive [SAVINGS FOR UNINSURED PATIENTS -- BIN:153311, PCN: ASPROD1, Group: [id number], ID# [id number], Process claim through Commissioner, for questions: [phone]. THIS IS NOT INSURANCE.] hydrocodone 5 mg-acetaminophen 325 mg tablet RxNorm: 409315 1-2 Tablet(s) PO Q6 PRN 09/09/2015 10/08/2015 Inactive Micardis 80 mg tablet RxNorm: 090199 1 Tablet(s) PO daily TAKE ONE TABLET BY MOUTH DAILY 08/23/2015 12/12/2015 Inactive Klor-Con 10 mEq tablet,extended release RxNorm: 228259 Tablet(s) TAKE ONE TABLET BY MOUTH TWICE A DAY 08/23/20152015 Inactive Synthroid 50 mcg tablet RxNorm: 419574 TAKE ONE TABLET BY MOUTH DAILY 07/06/2015 12/22/2015 Inactive meloxicam 15 mg tablet RxNorm: 856073 TAKE ONE TABLET BY MOUTH ONE TIME A DAY 06/22/2015 11/10/2015 Inactive Singulair 10 mg tablet RxNorm: 339002 TAKE ONE TABLET BY MOUTH EVERY DAY 05/18/2015 07/16/2016 Inactive Micardis 80 mg tablet RxNorm: 892564 TAKE ONE TABLET BY MOUTH DAILY 02/22/2015 05/04/2015 Inactive gabapentin 600 mg tablet RxNorm: 173345 1 Tablet(s) PO HS as needed 01/15/2015 01/09/2016 Inactive [SAVINGS FOR NON-COVERED DRUGS -- BIN:920106, PCN: ASPROD1, Group : [id number], ID# [id number], Questions: . THIS IS NOT INSURANCE.] diltiazem ER 180 mg capsule,extended release RxNorm: 458436 TAKE ONE CAPSULE BY MOUTH ONCE A DAY 01/07/2015 09/26/2015 Inactive meloxicam 15 mg tablet RxNorm: 136720 TAKE ONE TABLET BY MOUTH ONE TIME A DAY 11/09/2014 05/07/2015 Inactive gabapentin 600 mg tablet RxNorm: 233526 1 Tablet(s) PO HS as needed 10/13/2014 01/14/2015 Inactive [SAVINGS FOR UNINSURED PATIENTS -- BIN:999697, PCN: ASPROD1, Group: [id number], ID# [id number], Process claim through Commissioner, for questions: . THIS IS NOT INSURANCE.] omeprazole 20 mg tablet,delayed release RxNorm: 561535 1 Tablet(s) PO daily 10/13/2014 11/11/2014 Inactive Synthroid 50 mcg tablet RxNorm: 972347 TAKE ONE TABLET BY MOUTH EVERY DAY 10/12/2014 01/09/2015 Inactive Synthroid 50 mcg tablet RxNorm: 053729 Tablet(s) TAKE ONE TABLET BY MOUTH EVERY DAY 10/12/2014 10/11/2014 Inactive [SAVINGS FOR UNINSURED PATIENTS -- BIN:191107, PCN: ASPROD1, Group: [id number], ID# [id number], Process claim through [employer], for questions: . THIS IS NOT INSURANCE.] Lasix 40 mg tablet RxNorm: 107210 Tablet(s) PO TAKE ONE TABLET BY MOUTH TWICE A DAY FOR 3 DAYS, THEN RESUME ONE DAILY EXCEPT ON WEDNESDAYS AND FRIDAYS TAKE ONE TWICE DAILY 09/22/2014 05/28/2018 Inactive [SAVINGS FOR UNINSURED PATIENTS -- BIN: 499179, PCN: ASPROD1, Group: [id number], ID# [id number], Process claim through [employer] , for questions: . THIS IS NOT INSURANCE.] Lasix 40 mg tablet RxNorm: 516169 TAKE ONE TABLET BY MOUTH EVERY DAY 09/22/2014 10/18/2015 Inactive Crestor 10 mg tablet RxNorm: 681793 1 Tablet(s) PO Sun08/28/2014 04/24/2015 Inactive [SAVINGS FOR UNINSURED PATIENTS -- BIN:303144, PCN: ASPROD1, Group: [id number], ID# [id number], Process claim through [employer], for questions: [phone]. THIS IS NOT INSURANCE.] Crestor 10 mg tablet RxNorm: 982153 1 Tablet(s) PO Sun08/28/2014 08/27/2014 Inactive [SAVINGS FOR UNINSURED PATIENTS -- BIN:827839, PCN: ASPROD1, Group: [id number], ID# [id number], Process claim through [employer], for questions: [phone]. THIS IS NOT INSURANCE.] Micardis 80 mg tablet RxNorm: 073093 TAKE ONE TABLET BY MOUTH EVERY DAY 08/24/2014 12/21/2014 Inactive Zithromax Z-Hebert 250 mg tablet RxNorm: 857925 Tablet(s) PO UD 08/18/2014 Inactive 2 tabs day 1, 1 tabs days 2-5 Anusol-HC 25 mg suppository RxNorm: 3947226 INSERT 1 RECTALLY DAILY NEEDED 07/13/2014 10/10/2014 Inactive Klor-Con 10 mEq tablet,extended release RxNorm: 503730 TAKE ONE TABLET BY MOUTH TWICE A DAY 06/18/2014 12/14/2014 Inactive Lomotil 2.5 mg-0.025 mg tablet RxNorm: 9488595 1 Tablet(s) PO PRN after each loose stool max 8 per day 06/15/201410/12 Inactive one after each loose bm limit 8 per day albuterol sulfate HFA 90 mcg/actuation aerosol inhaler RxNorm: 1725482 1 or2 Puff( s) INH Q4 PRN as needed 05/11/20142013 Inactive albuterol sulfate HFA 90 mcg/actuation aerosol inhaler RxNorm: 8633781 1 or2 Puff( s) INH Q4 PRN as needed 05/11/20142016 Inactive Premarin 0.625 mg/gram vaginal cream RxNorm: 452138 1/2 Gram(s) VAG every other day 05/11/2014 12/06/2014 Inactive Premarin 0.625 mg/gram vaginal cream RxNorm: 660752 1/2 Gram(s) VAG every other day 05/11/2014 05/10/2014 Inactive cefdinir 300 mg capsule RxNorm: 161395 1 Capsule(s) PO BID 06/201405/16/2014 Inactive Rocephin 500 mg solution for injection RxNorm: 551892 1 Milliliter(s) Inj 05/07/2014 05/07/2014 Inactive Singulair 10 mg tablet RxNorm: 161808 TAKE ONE TABLET BY MOUTH EVERY DAY 04/30/2014 10/12/2014 Inactive meloxicam 15 mg tablet RxNorm: 193617 1 Tablet(s) PO daily 11/08/2014 Inactive Crestor 10 mg tablet RxNorm: 249729 1 Tablet(s) PO Sun TAKE ONE TABLET BY MOUTH EVERY DAY 04/16/2014 08/27/2014 Inactive Synthroid 50 mcg tablet RxNorm: 919620 TAKE ONE TABLET BY MOUTH EVERY DAY 04/02/2014 09/28/2014 Inactive diltiazem ER 180 mg capsule,extended release RxNorm: 138491 1 Capsule(s) PO daily 01/05/2014 12/30/2014 Inactive Pennsaid 1.5 % topical drops RxNorm: 433105 Drop(s) TOP APPLY 15 - 20 DROPS TOPICALLY FOUR TIMES A DAY 12/29/2013 Inactive Rocephin 500 mg solution for injection RxNorm: 758260 Inj 12/2612/26/2013 Inactive Kenalog 40 mg/mL suspension for injection RxNorm: 1664668 Milliliter(s) Inj 12/26/2013 12/26/2013 Inactive Micardis 80 mg tablet RxNorm: 666965 Tablet(s) PO TAKE ONE TABLET BY MOUTH EVERY DAY 12/15/2013 08/23/2014 Inactive nystatin 100,000 unit/mL oral suspension RxNorm: 457966 4 Unit(s) PO QID swish and swallow 11/12/2013 12/09/2013 Inactive Kenalog 40 mg/mL suspension for injection RxNorm: 4771921 Milliliter(s) Inj 11/12/2013 11/12/2013 Inactive Lasix 40 mg tablet RxNorm: 274320 Tablet(s) PO TAKE ONE TABLET BY MOUTH TWICE A DAY FOR 3 DAYS, THEN RESUME ONE DAILY EXCEPT ON WEDNESDAYS AND FRIDAYS TAKE ONE TWICE DAILY 10/30/2013 09/21/2014 Inactive Lasix 40 mg tablet RxNorm: 256679 1 Tablet(s) PO daily 201310/29/2013 Inactive Rocephin 500 mg solution for injection RxNorm: 107631 1 Milliliter(s) Inj 10/09/2013 10/09/2013 Inactive metoprolol succinate ER 25 mg tablet,extended release 24 hr RxNorm: 547569 Tablet (s) PO TAKE ONE TABLET BY MOUTH EVERY DAY 10/02/2013 01/06/2014 Inactive metoprolol succinate ER 25 mg tablet,extended release 24 hr RxNorm: 283132 Tablet (s) PO TAKE ONE TABLET BY MOUTH EVERY DAY 08/04/2013 10/01/2013 Inactive Synthroid 50 mcg tablet RxNorm: 735504 Tablet(s) PO TAKE ONE TABLET BY MOUTH EVERY DAY 07/14/2013 04/01/2014 Inactive gabapentin 600 mg tablet RxNorm: 827602 1 Tablet(s) PO Q8 PRN 06/11/2013 06/11/2013 Inactive gabapentin 600 mg tablet RxNorm: 081451 1 Tablet(s) PO Q8 PRN 06/11/2013 03/07/2014 Inactive Neurontin 600 mg tablet RxNorm: 207157 1 Tablet(s) PO Q8 PRN 06/11/2013 Inactive Anusol-HC 25 mg suppository RxNorm: 6235857 Suppository RTL INSERT 1 RECTALLY DAILY NEEDED 04/24/2013 07/12/2014 Inactive metoprolol succinate ER 25 mg tablet,extended release 24 hr RxNorm: 281506 1 Tablet(s) PO daily 04/21/2013 08/03/2013 Inactive Premarin 0.625 mg/gram Vaginal Cream RxNorm: 896602 1/2 Gram(s) VAG every other day 04/03/2013 10/29/2013 Inactive Klor-Con 10 mEq tablet,extended release RxNorm: 020069 1 Tablet(s) PO daily 03/26/2013 03/20/2014 Inactive Klor-Con 10 mEq tablet,extended release RxNorm: 553439 1 Tablet(s) PO BID 03/24/2013 03/23/2013 Inactive Klor-Con 10 mEq tablet,extended release RxNorm: 823866 1 Tablet(s) PO BID 03/24/2013 03/25/2013 Inactive Klor-Con 10 mEq tablet,extended release RxNorm: 141947 1 Tablet(s) PO BID 03/24/2013 03/23/2013 Inactive Augmentin 875 mg-125 mg tablet RxNorm: 664711 1 Tablet(s) PO BID 03/12/2013 03/18/2013 Inactive Augmentin 875 mg-125 mg tablet RxNorm: 387433 1 Tablet(s) PO BID 03/12/2013 03/11/2013 Inactive ciprofloxacin 500 mg tablet RxNorm: 461729 1 Tablet(s) PO BID 03/11/2013 03/17/2013 Inactive ciprofloxacin 500 mg tablet RxNorm: 040593 1 Tablet(s) PO BID 03/11/2013 03/10/2013 Inactive Crestor 10 mg tablet RxNorm: 954612 1 Tablet(s) PO daily 201202/09/2013 Inactive Crestor 10 mg tablet RxNorm: 773340 Tablet(s) PO TAKE ONE TABLET BY MOUTH EVERY DAY 02/10/2013 04/15/2014 Inactive Singulair 10 mg tablet RxNorm: 862279 Tablet(s) PO TAKE ONE TABLET BY MOUTH EVERY DAY 02/04/2013 04/29/2014 Inactive Kenalog 40 mg/mL Susp for Injection RxNorm: 6302129 1 Milliliter(s) Inj 11/21/2012 11/21/2012 Inactive Pennsaid 1.5 % topical drops RxNorm: 632009 15-20 Drop(s) TOP QID 10/28/2012 11/21/2013 Inactive Micardis 80 mg tablet RxNorm: 974268 1 Tablet(s) PO daily 201210/22/2013 Inactive put this on file please, quantitiy increase Pennsaid 1.5 % Topical Drops RxNorm: 435090 15-20 Drop(s) TOP QID 10/28/2012 10/27/2012 Inactive diltiazem ER 180 mg capsule,extended release RxNorm: 661621 1 Capsule(s) PO daily 10/14/2012 10/08/2013 Inactive Pyridium 200 mg tablet RxNorm: 3906114 1 Tablet(s) PO Q8 PRN 10/12/2014 Inactive Flagyl 500 mg tablet RxNorm: 787479 1 Tablet(s) PO TID 201209/10/2012 Inactive Macrobid 100 mg capsule RxNorm: 3797421 1 Capsule(s) PO BID 03/201309/02/2012 Inactive Macrobid 100 mg capsule RxNorm: 0004254 1 Capsule(s) PO BID 03/201309/09/2012 Inactive sulfamethoxazole-trimethoprim 800 mg-160 mg tablet RxNorm: 505393 1 Tablet(s) PO BID 08/05/2012 08/14/2012 Inactive Lasix 40 mg tablet RxNorm: 604827 1 Tablet(s) PO BID pt is taking extra lasix x 3 days, then every sunday and sunday take two lasix pills. 07/15/2012 07/09/2013 Inactive Synthroid 50 mcg tablet RxNorm: 661780 1 Tablet(s) PO daily 07/09/2013 Inactive do not substitute the generic levothyroxine for the synthroid brand name.....she needs brand name synthroid. Klor-Con 10 mEq tablet,extended release RxNorm: 830591 1 Tablet(s) PO BID 07/15/2012 03/23/2013 Inactive Singulair 10 mg tablet RxNorm: 639983 1 Tablet(s) PO daily 02/03/2013 Inactive Lexapro 10 mg tablet RxNorm: 097554 1/2 Tablet(s) PO daily 06/03/2013 Inactive ProAir HFA 90 mcg/actuation Aerosol Inhaler RxNorm: 175483 2 INH Q6 PRN 04/23/2012 01/17/2016 Inactive Lexapro 10 mg tablet RxNorm: 158478 1/2 Tablet(s) PO daily 05/09/2012 Inactive metoprolol succinate ER 50 mg tablet,extended release 24 hr RxNorm: 069848 1 Tablet(s) PO daily 04/09/2012 04/09/2012 Inactive Klor-Con 10 10 mEq tablet,extended release RxNorm: 648744 1 Tablet(s) PO daily 04/01/2012 07/14/2012 Inactive metoprolol succinate ER 50 mg tablet,extended release 24 hr RxNorm: 376747 1/2 Tablet(s) PO BID 03/11/2012 04/08/2012 Inactive clonidine 0.1 mg Tab RxNorm: 053079 1 Tablet(s) PO BID 201103/12/2012 Inactive clonidine 0.1 mg Tab RxNorm: 641100 1 Tablet(s) PO BID 201102/18/2012 Inactive Micardis 80 mg Tab RxNorm: 067921 1 Tablet(s) PO daily 201102/13/2012 Inactive Micardis 80 mg tablet RxNorm: 189691 1 Tablet(s) PO daily 201110/27/2012 Inactive Synthroid 50 mcg tablet RxNorm: 776786 1 Tablet(s) PO daily 07/14/2012 Inactive Tekturna 300 mg Tab RxNorm: 0759692 1 Tablet(s) PO daily 02/1103/12/2012 Inactive Lasix 40 mg Tab RxNorm : 578858 1 Tablet(s) PO daily 12/18/2011 12/17/2011 Inactive Lasix 40 mg tablet RxNorm: 522776 1 Tablet(s) PO daily 201107/14/2012 Inactive Anusol-HC 25 mg Suppository RxNorm: 9653957 1 Suppository RTL QDAY PRN 12/04/2011 04/19/2012 Inactive lactobacillus acidophilus Cap RxNorm: 1 Capsule(s) PO BID 11/20/2011 Inactive lactobacillus acidophilus Cap RxNorm: 1 Capsule(s) PO BID 11/20/2011 Inactive Cipro 500 mg Tab RxNorm: 426236 1 Tablet(s) PO BID 201103/12/2012 Inactive lactobacillus acidophilus Cap RxNorm: 1 Capsule(s) PO BID 11/27/2011 Inactive lactobacillus acidophilus Cap RxNorm: 1 Capsule(s) PO BID 11/20/2011 Inactive Cipro 500 mg Tab RxNorm: 070749 1 Tablet(s) PO BID 201111/20/2011 Inactive Lexapro 10 mg Tab RxNorm: 052998 1 Tablet(s) PO daily 201111/12/2011 Inactive Lexapro 10 mg tablet RxNorm: 248468 1 Tablet(s) PO daily 201104/18/2012 Inactive amlodipine 10 mg Tab RxNorm: 887437 1 Tablet(s) PO daily 201112/03/2011 Inactive amlodipine 5 mg Tab RxNorm: 088627 1 Tablet(s) PO daily 201112/04/2011 Inactive Rocephin 500 mg Solution for Injection RxNorm: 185869 Inj 08/3009/20/2011 Inactive metoprolol succinate ER 25 mg 24 hr Tab RxNorm: 648020 1 Tablet(s) PO QHS 08/30/2011 09/20/2011 Inactive Ambien 10 mg Tab RxNorm: 558485 1 Tablet(s) PO HS PRN 08/3004/19/2012 Inactive Augmentin 875 mg-125 mg Tab RxNorm: 943374 1 Tablet(s) PO BID 08/25/2011 09/20/2011 Inactive Augmentin 875 mg-125 mg Tab RxNorm: 153491 1 Tablet(s) PO BID 08/25/2011 08/24/2011 Inactive Rocephin 500 mg Solution for Injection RxNorm: 592081 Inj 08/2308/23/2011 Inactive Levaquin 500 mg Tab RxNorm: 527592 1 Tablet(s) PO daily 201008/30/2011 Inactive chlordiazepoxide-clidinium 5 mg-2.5 mg Cap RxNorm: 311949 1 Capsule(s) PO BID 07/10/2011 04/19/2012 Inactive q 12 hours prn metoprolol succinate ER 100 mg 24 hr Tab RxNorm: 420023 1 Tablet(s) PO daily 05/29/2011 03/12/2012 Inactive Synthroid 50 mcg Tab RxNorm: 507389 1 Tablet(s) PO daily 201008/12/2011 Inactive Ambien CR 12.5 mg Tab RxNorm: 390432 1 Tablet(s) PO HS PRN 05/0908/30/2011 Inactive Ambien 10 mg Tab RxNorm: 557593 1 Tablet(s) PO QHS 201006/07/2011 Inactive Nexium 40 mg Cap RxNorm: 144890 1 Capsule(s) PO daily 05/0403/12/2012 Inactive the patient had tried pepcid, otc priolosec, RX omperazole, failed them all Bactrim DS 800 mg-160 mg Tab RxNorm: 448788 1 Tablet(s) PO BID 04/19/2011 08/30/2011 Inactive triamcinolone acetonide 40 mg/mL Susp for Injection RxNorm: 2816986 1 Milliliter(s ) Inj UD 04/19/2011 04/19/2011 Inactive aspirin 81 mg Tab, Delayed Release RxNorm: 282466 1 Tablet(s) PO daily No Start Date Active 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 Device RxNorm: Miscellaneous QHS sleep apnea, 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 No Start Date Active Cymbalta 30 mg Cap RxNorm: 439360 1 Capsule(s) PO daily No Start Date 03/12/2012 Inactive Nexium 40 mg Cap RxNorm: 467222 Capsule(s) PO No Start Date 05/03/2011 Inactive Benadryl 25 mg capsule RxNorm: 6459958 1 Capsule(s) PO QHS No Start Date 01/03/2017 Inactive Klor-Con 10 10 mEq tablet,extended release RxNorm: 093002 1 Tablet(s) PO daily No Start Date 03/31/2012 Inactive Metamucil Oral RxNorm : Oral No Start Date 10/12/2014 Inactive amlodipine 10 mg Tab RxNorm: 327200 1 Tablet(s) PO daily No Start Date 10/08/2011 Inactive Norvasc 5 mg tablet RxNorm: 361280 1 Tablet(s) PO daily No Start Date 10/12/2014 Inactive Lasix 40 mg Tab RxNorm : 958431 1 Tablet(s) PO daily No Start Date 12/17/2011 Inactive diltiazem ER (XR/XT) 240 mg capsule,extended release, controlled RxNorm: 396354 1 Capsule(s) PO daily No Start Date Inactive Centrum Silver Ultra Women's oral RxNorm: 80613 oral No Start Date 04/24/2018 Inactive Synthroid 50 mcg Tab RxNorm: 551045 1 Tablet(s) PO daily No Start Date 05/14/2011 Inactive Flagyl 500 mg tablet RxNorm: 322164 1 Tablet(s) PO No Start Date 09/03/2012 Inactive one after each loose bm limit 8 per day Boniva 150 mg Tab RxNorm: 138584 1 Tablet(s) PO UD No Start Date 08/30/2011 Inactive monthly Singulair 10 mg tablet RxNorm: 137171 1 Tablet(s) PO daily No Start Date 06/11/2012 Inactive folic acid Oral RxNorm : Oral No Start Date 03/12/2012 Inactive potassium chloride ER 10 mEq tablet,extended release RxNorm: 510410 1 Tablet(s) PO daily No Start Date 01/03/2017 Inactive Probiotic & Acidophilus oral RxNorm: oral No Start Date 04/24/2018 Inactive Librium 10 mg Cap RxNorm: 544268 Capsule(s) PO UD No Start Date 03/12/2012 Inactive q 12 hours prn Crestor 10 mg tablet RxNorm: 524414 1 Tablet(s) PO daily No Start Date 02/09/2013 Inactive multivitamin Cap RxNorm: 1 Capsule(s) PO daily No Start Date 01/17/2016 Inactive metoprolol succinate ER 100 mg 24 hr Tab RxNorm: 548087 1 Tablet(s) PO daily No Start Date 05/28/2011 Inactive Zithromax Z-Hebert 250 mg tablet RxNorm: 952622 Tablet(s) PO UD No Start Date 12/22/2015 Inactive diltiazem ER 180 mg capsule,extended release RxNorm: 308270 1 Capsule(s) PO daily No Start Date 10/13/2012 Inactive Tekturna 300 mg Tab RxNorm: 1567213 1 Tablet(s) PO daily samples No Start Date 02/11/2012 Inactive Xanax 0.25 mg tablet RxNorm: 290437 1-2 Tablet(s) PO QHS as needed insomnia No Start Date 07/24/2017 Inactive Fish Oil 1,000 mg Cap RxNorm: 1 Capsule(s) PO daily No Start Date 04/24/2018 Inactive ProAir HFA 90 mcg/actuation Aerosol Inhaler RxNorm: 273638 2 INH Q6 PRN No Start Date 04/22/2012 Inactive chlordiazepoxide-clidinium 5 mg-2.5 mg Cap RxNorm: 921635 1 Capsule(s) PO PRN No Start Date 07/09/2011 Inactive q 12 hours prn Butrans 5 mcg/hour Transderm Patch RxNorm: 868178 1 Patch TD weekly No Start Date 05/26/2012 Inactive Lactobacillus acidophilus tablet RxNorm: 4 Tablet(s) PO daily No Start Date 01/03/2017 Inactive Librax (with clidinium) 5 mg-2.5 mg capsule RxNorm: 853612 1 Capsule(s) PO BID No Start Date 04/18/2012 Inactive Nexium 40 mg capsule,delayed release RxNorm: 133946 Capsule(s) PO PRN No Start Date 10/12/2014 Inactive Tylenol Extra Strength 500 mg tablet RxNorm: 231726 1 Tablet(s) PO BID as needed for pain No Start Date 04/24/2018 Inactive Premarin 0.625 mg/gram Vaginal Cream RxNorm: 116623 Gram(s) VAG No Start Date 03/12/2012 Inactive three times a week, small amt to vaginal tissuesample given metoprolol succinate ER 50 mg tablet,extended release 24 hr RxNorm: 638763 1 Tablet(s) PO daily No Start Date 2011 Inactive Zithromax Z-Hebert 250 mg tablet RxNorm: 716957 Tablet(s) PO UD No Start Date 08/13/2014 Inactive albuterol sulfate HFA 90 mcg/actuation aerosol inhaler RxNorm: 8937546 1 or2 Puff( s) INH Q4 PRN No Start Date 05/10/2014 Inactive Xanax 0.25 mg Tab RxNorm: 271044 1/2-1 Tablet(s) PO Q8 PRN No Start Date 03/12/2012 Inactive metoprolol succinate ER 25 mg tablet,extended release 24 hr RxNorm: 069266 1 Tablet(s) PO daily No Start Date 2012 Inactive Zithromax Z-Hebert 250 mg tablet RxNorm: 835442 1 Tablet(s) PO UD No Start Date 08/10/2016 Inactive Z PACK DIRECTED calcium carbonate 600 mg (1,500 mg) Tab RxNorm: 315631 1 Tablet(s) PO BID No Start Date 01/03/2017 Inactive albuterol sulfate HFA 90 mcg/Actuation Aerosol Inhaler RxNorm: 677395 1-2 Puff(s) INH Q4 PRN No Start Date 03/11/2012 Inactive Vitamin D3 2,000 unit capsule RxNorm: 375642 1 Capsule(s) PO daily No Start Date 10/12/2014 Inactive Colace 100 mg Cap RxNorm: 1887854 1 Capsule(s) PO BID No Start Date 01/17/2016 Inactive Neurontin 600 mg tablet RxNorm: 472614 1 Tablet(s) PO Q8 PRN No Start Date 06/09/2013 Inactive Lomotil 2.5 mg-0.025 mg tablet RxNorm: 1369281 1 Tablet(s) PO No Start Date 06/14/2014 Inactive one after each loose bm limit 8 per day Micardis 80 mg Tab RxNorm: 053945 1 Tablet(s) PO daily No Start Date 12/03/2011 Inactive Pyridium 200 mg tablet RxNorm: 1933768 1 Tablet(s) PO Q8 PRN No Start Date 09/10/2012 Inactive Medication Administered Medication Codes Instructions Start Date Status ceftriaxone 500 mg solution for injection RxNorm: 8633600 08/09/2017 No longer Active Kenalog 40 mg/mL suspension for injection RxNorm: 9283126 1Mliter 08/09/2017 No longer Active Kenalog 40 mg/mL suspension for injection RxNorm: 7568679 1Mliter 01/04/2017 No longer Active Kenalog 40 mg/mL suspension for injection RxNorm: 5092565 Milliliter 08/23/2016 No longer Active Rocephin 500 mg solution for injection RxNorm: 318061 1Milliliter 05/07/2014 No longer Active Kenalog 40 mg/mL suspension for injection RxNorm: 8897211 Milliliter 12/26/2013 No longer Active Rocephin 500 mg solution for injection RxNorm: 058494 12/26/2013 No longer Active Kenalog 40 mg/mL suspension for injection RxNorm: 5370039 Milliliter 11/12/2013 No longer Active Rocephin 500 mg solution for injection RxNorm: 880257 1Milliliter 10/09/2013 No longer Active Kenalog 40 mg/mL Susp for Injection RxNorm: 5709363 1Milliliter 11/21/2012 No longer Active Rocephin 500 mg Solution for Injection RxNorm: 963546 08/23/2011 No longer Active triamcinolone acetonide 40 mg/mL Susp for Injection RxNorm: 2554697 1MilliliterUD 04/19/2011 No longer Active Immunizations Vaccine Codes Date Status SHINGARIX CVX: 121 07/02/2018 completed Influenza CVX: 141 05/22/2018 completed Influenza CVX: 141 06/16/2016 completed Pneumococcal CVX: 133 06/16/2016 completed PPD Unknown 08/07/2014 completed Influenza CVX: 141 05/20/2014 completed Influenza CVX: 141 06/11/2013 completed zostavax CVX: 121 05/08/2013 completed Influenza CVX: 141 05/03/2012 completed Influenza Unknown 06/10/2010 completed Assessments Condition Codes Effective Dates Pain in right knee ICD-10: M25.561 ICD-9: 719.46 05/29/2018 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 ICD-9: 244.8 05/29/2018 Essential (primary) hypertension ICD-10: I10 ICD-9: 401.1 05/29/2018 Pain in left knee ICD-10: M25.562 [...] Localized edema ICD-10: R60.0 ICD-9: 782.3 02/02/2017 Mixed hyperlipidemia ICD-10: E78.2 ICD-9: 272.4 01/04/2017 Allergic rhinitis due to pollen ICD-10: J30.1 [...] Reason For Visit Effective Dates Notes hypertension 05/29/2018 Annual Medicare Wellness Exam 04/25/2018 [...] Item Item Code Result Date Comp Metabolic Kvt932 NA 139 mEq/L 05/29/2018 Comp Metabolic Qrb484 K 4.1 mEq/L 05/29/2018 Comp Metabolic Ttg344 CL 99 mEq/L 05/29/2018 Comp Metabolic Ryv355 CO2 30.0 mEq/L 05/29/2018 Comp Metabolic Lne082 ANION GAP 14 05/29/2018 Comp Metabolic Jtf795 GLUCOSE 107 mg/dL 05/29/2018 Comp Metabolic Dcz587 Creat 0.6 mg/dL 05/29/2018 Comp Metabolic Qhb506 eGFR 95 ml/min/1.73m2 05/29/2018 Comp Metabolic Gxc285 BUN 15 mg/dL 05/29/2018 Comp Metabolic Dnz090 B/C Ratio 23.4 Ratio 05/29/2018 Comp Metabolic Jmc066 CALCIUM 9.4 mg/dL 05/29/2018 Comp Metabolic Adq137 ALK PHOS 52 U/L 05/29/2018 Comp Metabolic Zbp799 AST(SGOT) 16 U/L 05/29/2018 Comp Metabolic Xsf662 ALT(SGPT) 12 U/L 05/29/2018 Comp Metabolic Abm670 BILI T 1.1 mg/dL 05/29/2018 Comp Metabolic Nct390 ALBUMIN 4.0 g/dL 05/29/2018 Comp Metabolic Lwd810 TPRO 6.5 g/dL 05/29/2018 Comp Metabolic Geg144 GLOB 2.5 g/dL 05/29/2018 Comp Metabolic Tiz082 A/G Ratio 1.6 Ratio 05/29/2018 Comp Metabolic Aey954 Osmo 279 mOsmo 05/29/2018 Cbc With Differential [...] 24.9 % 05/29/2018 Cbc With Differential Ord2 Garrard% 9.0 % 05/29/2018 Cbc With Differential Ord2 [...] 2.05 K/ul 05/29/2018 Cbc With Differential Ord2 [place] ABS# 0.7 K/ul 05/29/2018 Cbc With Differential Ord2 Eos ABS# 0.2 K/ul 05/29/2018 Cbc With Differential Ord2 Baso ABS# 0.0 K/ul 05/29/2018 Tsh Ord6 TSH (3rd IS) 2.05 uIU/mL 05/29/2018 Lipid Ord30 CHOL 191 mg/dL 05/29/2018 Lipid Ord30 HDL 68.0 mg/dl 05/29/2018 Lipid Ord30 TRIG 138 mg/dL 05/29/2018 Lipid Ord30 LDL 95 mg/dL 05/29/2018 Lipid Ord30 C/HDL 2.8 Ratio 05/29/2018 Free T4 Dze853 FREE T4 0.93 ng/dL 05/29/2018 Free T4 Pkh845 FREE T4 0.90 ng/dL 09/12/2017 Cbc With [...] 29.3 pg 09/12/2017 Cbc With Differential Ord2 [place]ard% 8.7 % 09/12/2017 Cbc With Differential Ord2 [...] 2.72 K/ul 09/12/2017 Cbc With Differential Ord2 [place] ABS# 1.2 K/ul 09/12/2017 Cbc With Differential Ord2 Eos ABS# 0.3 K/ul 09/12/2017 Cbc With Differential Ord2 Baso ABS# 0.1 K/ul 09/12/2017 Comp Metabolic Syo528 NA 140 mEq/L 09/12/2017 Comp Metabolic Ywj131 K 4.3 mEq/L 09/12/2017 Comp Metabolic Gjm527 CL 99 mEq/L 09/12/2017 Comp Metabolic Jte092 CO2 33.0 mEq/L 09/12/2017 Comp Metabolic Zgj754 ANION GAP 12 09/12/2017 Comp Metabolic Ozh549 GLUCOSE 92 mg/dL 09/12/2017 Comp Metabolic Ghp420 Creat 0.7 mg/dL 09/12/2017 Comp Metabolic Pnq212 eGFR 84 ml/min/1.73m2 09/12/2017 Comp Metabolic Jci059 BUN 18 mg/dL 09/12/2017 Comp Metabolic Qbp805 B/C Ratio 25.4 Ratio 09/12/2017 Comp Metabolic Czv303 CALCIUM 9.3 mg/dL 09/12/2017 Comp Metabolic Jfp159 ALK PHOS 64 U/L 09/12/2017 Comp Metabolic Zib815 AST(SGOT) 13 U/L 09/12/2017 Comp Metabolic Ven326 ALT(SGPT) 12 U/L 09/12/2017 Comp Metabolic Cuv748 BILI T 0.7 mg/dL 09/12/2017 Comp Metabolic Bwp793 ALBUMIN 4.0 g/dL 09/12/2017 Comp Metabolic Qus681 TPRO 6.3 g/dL 09/12/2017 Comp Metabolic Lpf740 GLOB 2.3 g/dL 09/12/2017 Comp Metabolic Ndn298 A/G Ratio 1.8 Ratio 09/12/2017 Comp Metabolic Kec621 Osmo 281 mOsmo 09/12/2017 Lipid Ord30 CHOL [...] 28.8 pg 03/09/2016 Cbc With Differential Ord2 [place]arrard% 8.5 % 03/09/2016 Cbc With Differential Ord2 [...] 2.38 K/ul 03/09/2016 Cbc With Differential Ord2 [place] ABS# 0.8 K/ul 03/09/2016 Cbc With Differential Ord2 Eos ABS# 0.2 K/ul 03/09/2016 Cbc With Differential Ord2 Baso ABS# 0.1 K/ul 03/09/2016 Comp Metabolic Tfd429 NA 138 mEq/L 03/09/2016 Comp Metabolic Smr556 K 4.5 mEq/L 03/09/2016 Comp Metabolic Kqh762 CL 100 mEq/L 03/09/2016 Comp Metabolic Ljz850 CO2 33.0 mEq/L 03/09/2016 Comp Metabolic Pcu269 ANION GAP 10 03/09/2016 Comp Metabolic Ckh717 GLUCOSE 94 mg/dL 03/09/2016 Comp Metabolic Tgs829 Creat 0.6 mg/dL 03/09/2016 Comp Metabolic Wbk124 eGFR 106 ml/min/1.73m2 03/09/2016 Comp Metabolic Tpa318 BUN 10 mg/dL 03/09/2016 Comp Metabolic Xww473 B/C Ratio 17.2 Ratio 03/09/2016 Comp Metabolic Gjq579 CALCIUM 9.2 mg/dL 03/09/2016 Comp Metabolic Tql893 ALK PHOS 64 U/L 03/09/2016 Comp Metabolic Bes730 AST(SGOT) 20 U/L 03/09/2016 Comp Metabolic Ngo827 ALT(SGPT) 11 U/L 03/09/2016 Comp Metabolic Azv294 BILI T 0.9 mg/dL 03/09/2016 Comp Metabolic Ozn072 ALBUMIN 4.0 g/dL 03/09/2016 Comp Metabolic Hpv162 TPRO 6.1 g/dL 03/09/2016 Comp Metabolic Tuc435 GLOB 2.1 g/dL 03/09/2016 Comp Metabolic Hjb687 A/G Ratio 1.9 Ratio 03/09/2016 Comp Metabolic Wik086 Osmo 274 mOsmo 03/09/2016 Free T4 Sjr835 FREE T4 0.90 ng/dL 03/09/2016 Lipid Ord30 [...] hTSH II 3.25 uIU/mL 09/07/2015 Free T4 Wbm997 FREE T4 0.79 ng/dL 09/07/2015 Comp Metabolic Fvq983 NA 137 mEq/L 09/07/2015 Comp Metabolic Ppt824 K 4.0 mEq/L 09/07/2015 Comp Metabolic Npk272 CL 98 mEq/L 09/07/2015 Comp Metabolic Toy113 CO2 30.0 mEq/L 09/07/2015 Comp Metabolic Xvv025 ANION GAP 13 09/07/2015 Comp Metabolic Vco424 GLUCOSE 101 mg/dL 09/07/2015 Comp Metabolic Eut200 Creat 0.6 mg/dL 09/07/2015 Comp Metabolic Lhj567 eGFR 111 ml/min/1.73m2 09/07/2015 Comp Metabolic Yew594 BUN 16 mg/dL 09/07/2015 Comp Metabolic Qfo029 B/C Ratio 28.6 Ratio 09/07/2015 Comp Metabolic Xuo807 CALCIUM 9.4 mg/dL 09/07/2015 Comp Metabolic Bdn813 ALK PHOS 68 U/L 09/07/2015 Comp Metabolic Vff285 AST(SGOT) 16 U/L 09/07/2015 Comp Metabolic Xir573 ALT(SGPT) 12 U/L 09/07/2015 Comp Metabolic Sou386 BILI T 0.9 mg/dL 09/07/2015 Comp Metabolic Lxb995 ALBUMIN 4.1 g/dL 09/07/2015 Comp Metabolic Kib681 TPRO 6.5 g/dL 09/07/2015 Comp Metabolic Hzb005 GLOB 2.4 g/dL 09/07/2015 Comp Metabolic Won779 A/G Ratio 1.7 Ratio 09/07/2015 Comp Metabolic Aiy038 Osmo 275 mOsmo 09/07/2015 Cbc With Differential [...] Differential Ord2 RDW 14.4 % 09/07/2015 TSH 6602224 TSH 0.920 uIU/ML 08/28/2014 CBC 9013583 WBC 12.5 10e9/L 08/28/2014 CBC 1810206 RBC 3.44 10e12/L 08/28/2014 CBC 1480093 HGB 10.3 g/dL 08/28/2014 CBC 1072907 HCT DET 33.9 % 08/28/2014 CBC 1123990 MCV 98.5 fL 08/28/2014 CBC 8584855 MCH 29.9 pg 08/28/2014 CBC 5683239 MCHC 30.4 g/dL 08/28/2014 CBC 9716617 PLT 412 10e9/L 08/28/2014 CBC 9957496 MPV 10.2 fL 08/28/2014 CBC 7514270 NNEKA % 68.5 % 08/28/2014 CBC 2879433 LY % 20.8 % 08/28/2014 CBC 9680810 MON % 9.9 % 08/28/2014 CBC 3111693 EOS % 0.6 % 08/28/2014 CBC 4780498 BASO % 0.2 % 08/28/2014 CBC 2701466 RDW 15.8 % 08/28/2014 CBC 5661308 ABS NNEKA 8.56 10e9/L 08/28/2014 CBC 1548208 ABS LYMPH 2.60 10e9/L 08/28/2014 CBC 6696516 ABS MONO 1.24 10e9/L 08/28/2014 CBC 5118271 ABS EOS 0.08 10e9/L 08/28/2014 CBC 4842386 ABS BASO 0.03 10e9/L 08/28/2014 CBC 7880740 RDW-SD 55.4 fL 08/28/2014 GFR CALC 6693539 GFR AA >60 ML/MIN 08/28/2014 GFR CALC 2058806 GFR NON-AA >60 ML/MIN 08/28/2014 LIPID GRP HDL TEST 69 MG/DL 08/28/2014 LIPID GRP TRIG 158 MG/DL 08/28/2014 LIPID GRP TEST LDL 96 MG/DL 08/28/2014 LIPID GRP CHOL 197 MG/DL 08/28/2014 LIPID GRP RCHOL/HDL 2.86 RATIO 08/28/2014 LIPID GRP NON-HDL CH 128 MG/DL 08/28/2014 CHEM 14 6341134 AST 14 U/L 08/28/2014 CHEM 14 5684909 ALT 13 IU/L 08/28/2014 CHEM 14 4748441 BUN 15 MG/DL 08/28/2014 CHEM 14 2054466 ALBUMIN 4.2 GM/DL 08/28/2014 CHEM 14 3465695 CHLORIDE 98 MMOL/L 08/28/2014 CHEM 14 2178555 BILI TOT 1.2 MG/DL 08/28/2014 CHEM 14 4111168 ALK PHOS 68 U/L 08/28/2014 CHEM 14 2751807 SODIUM 137 MMOL/L 08/28/2014 CHEM 14 7344797 CREATININE 0.68 MG/DL 08/28/2014 CHEM 14 7679635 CALCIUM 9.1 MG/DL 08/28/2014 CHEM 14 3674693 POTASSIUM 3.7 MMOL/L 08/28/2014 CHEM 14 5885186 PROT TOT 6.2 GM/DL 08/28/2014 CHEM 14 8014204 GLUCOSE 91 MG/DL 08/28/2014 CHEM 14 3624971 BICARB 31 MMOL/L 08/28/2014 CHEM 14 0431430 ANION GAP 8 MEQ/L 08/28/2014 FREE T4 1899080 FREE T4 1.44 NG/DL 08/28/2014 LIPID GRP HDL TEST 73 MG/DL 04/16/2014 LIPID GRP TRIG 131 MG/DL 04/16/2014 LIPID GRP TEST LDL 99 MG/DL 04/16/2014 LIPID GRP CHOL 198 MG/DL 04/16/2014 LIPID GRP RCHOL/HDL 2.71 RATIO 04/16/2014 LIPID GRP NON-HDL CH 125 MG/DL 04/16/2014 CHEM 14 2024413 AST 17 U/L 04/14/2014 CHEM 14 6559650 ALT 17 IU/L 04/14/2014 CHEM 14 1194187 BUN 15 MG/DL 04/14/2014 CHEM 14 2020800 ALBUMIN 4.3 GM/DL 04/14/2014 CHEM 14 0584106 CHLORIDE 96 MMOL/L 04/14/2014 CHEM 14 8685488 BILI TOT 0.9 MG/DL 04/14/2014 CHEM 14 9491469 ALK PHOS 65 U/L 04/14/2014 CHEM 14 9035968 SODIUM 135 MMOL/L 04/14/2014 CHEM 14 3624831 CREATININE 0.69 MG/DL 04/14/2014 CHEM 14 9187406 CALCIUM 9.5 MG/DL 04/14/2014 CHEM 14 7785819 POTASSIUM 4.1 MMOL/L 04/14/2014 CHEM 14 1578188 PROT TOT 6.6 GM/DL 04/14/2014 CHEM 14 5994305 GLUCOSE 104 MG/DL 04/14/2014 CHEM 14 6250100 BICARB 34 MMOL/L 04/14/2014 CHEM 14 5646974 ANION GAP 5 MEQ/L 04/14/2014 A1C HPLC 5944269 A1C HPLC 66142-4 5.0 % 04/14/2014 TSH 0629647 TSH 2.140 uIU/ML 04/14/2014 FREE T4 3647761 FREE T4 1.56 NG/DL 04/14/2014 GFR CALC 2073946 GFR AA >60 ML/MIN 04/14/2014 GFR CALC 8526182 GFR NON-AA >60 ML/MIN 04/14/2014 CBC 4875538 WBC 12.8 10e9/L 04/14/2014 CBC 6216237 RBC 4.44 10e12/L 04/14/2014 CBC 1719244 HGB 13.2 g/dL 04/14/2014 CBC 7015503 HCT DET 41.4 % 04/14/2014 CBC 7235058 MCV 93.2 fL 04/14/2014 CBC 1696662 MCH 29.7 pg 04/14/2014 CBC 9746836 MCHC 31.9 g/dL 04/14/2014 CBC 0956049 PLT 383 10e9/L 04/14/2014 CBC 3420255 MPV 10.1 fL 04/14/2014 CBC 9115982 NNEKA % 65.5 % 04/14/2014 CBC 8127477 LY % 23.0 % 04/14/2014 CBC 6011611 MON % 9.9 % 04/14/2014 CBC 8742447 EOS % 1.3 % 04/14/2014 CBC 6187705 BASO % 0.3 % 04/14/2014 CBC 9213348 RDW 13.7 % 04/14/2014 CBC 6559674 ABS NNEKA 8.38 10e9/L 04/14/2014 CBC 5790089 ABS LYMPH 2.94 10e9/L 04/14/2014 CBC 7996347 ABS MONO 1.27 10e9/L 04/14/2014 CBC 0034064 ABS EOS 0.17 10e9/L 04/14/2014 CBC 3548146 ABS BASO 0.04 10e9/L 04/14/2014 CBC 5928026 RDW-SD 45.9 fL 04/14/2014 A1C HPLC 2887313 A1C HPLC 87614-3 4.9 % 11/13/2013 CHEM 14 5192714 AST 15 U/L 11/12/2013 CHEM 14 7720365 ALT 14 IU/L 11/12/2013 CHEM 14 3148440 BUN 14 MG/DL 11/12/2013 CHEM 14 8294844 ALBUMIN 4.3 GM/DL 11/12/2013 CHEM 14 0210253 CHLORIDE 101 MMOL/L 11/12/2013 CHEM 14 8575426 BILI TOT 0.9 MG/DL 11/12/2013 CHEM 14 4757889 ALK PHOS 67 U/L 11/12/2013 CHEM 14 1965217 SODIUM 139 MMOL/L 11/12/2013 CHEM 14 3593733 CREATININE 0.67 MG/DL 11/12/2013 CHEM 14 8987348 CALCIUM 9.5 MG/DL 11/12/2013 CHEM 14 1677152 POTASSIUM 4.1 MMOL/L 11/12/2013 CHEM 14 1061562 PROT TOT 6.5 GM/DL 11/12/2013 CHEM 14 3718680 GLUCOSE 102 MG/DL 11/12/2013 CHEM 14 0921352 BICARB 30 MMOL/L 11/12/2013 CHEM 14 7062610 ANION GAP 8 MEQ/L 11/12/2013 GFR CALC 6612209 GFR AA >60 ML/MIN 11/12/2013 GFR CALC 0155819 GFR NON-AA >60 ML/MIN 11/12/2013 TSH 7542332 TSH 2.445 uIU/ML 11/12/2013 FREE T4 5421491 FREE T4 1.09 NG/DL 11/12/2013 CBC 8541291 WBC 7.6 10e9/L 11/12/2013 CBC 3727264 RBC 4.42 10e12/L 11/12/2013 CBC 4497752 HGB 13.1 g/dL 11/12/2013 CBC 9043816 HCT DET 41.2 % 11/12/2013 CBC 9195704 MCV 93.2 fL 11/12/2013 CBC 9835976 MCH 29.6 pg 11/12/2013 CBC 2874419 MCHC 31.8 g/dL 11/12/2013 CBC 2069526 PLT 314 10e9/L 11/12/2013 CBC 1751347 MPV 10.4 fL 11/12/2013 CBC 0016463 NNEKA % 59.8 % 11/12/2013 CBC 1584885 LY % 28.1 % 11/12/2013 CBC 4249591 MON % 9.5 % 11/12/2013 CBC 7806474 EOS % 1.8 % 11/12/2013 CBC 1226740 BASO % 0.8 % 11/12/2013 CBC 1955492 RDW 13.8 % 11/12/2013 CBC 1783746 ABS NNEKA 4.54 10e9/L 11/12/2013 CBC 3136186 ABS LYMPH 2.14 10e9/L 11/12/2013 CBC 2704326 ABS MONO 0.72 10e9/L 11/12/2013 CBC 2942201 ABS EOS 0.14 10e9/L 11/12/2013 CBC 1646437 ABS BASO 0.06 10e9/L 11/12/2013 CBC 0225380 RDW-SD 46.0 fL 11/12/2013 LIPID GRP HDL TEST 66 MG/DL 11/12/2013 LIPID GRP TRIG 130 MG/DL 11/12/2013 LIPID GRP TEST LDL 108 MG/DL 11/12/2013 LIPID GRP CHOL 200 MG/DL 11/12/2013 LIPID GRP RCHOL/HDL 3.03 RATIO 11/12/2013 HS ENE ZOS 2537846 HS ENE ZOS IMMUNE 04/04/2013 A1C 2135053 A1C HPLC 92304-7 5.2 % 04/03/2013 GFR CALC 0054946 GFR AA >60 ML/MIN 03/31/2013 GFR CALC 3465985 GFR NON-AA >60 ML/MIN 03/31/2013 TSH 6226667 TSH 2.689 uIU/ML 03/31/2013 LIPID GRP HDL TEST 63 MG/DL 03/31/2013 LIPID GRP TRIG 157 MG/DL 03/31/2013 LIPID GRP TEST LDL 98 MG/DL 03/31/2013 LIPID GRP CHOL 192 MG/DL 03/31/2013 LIPID GRP RCHOL/HDL 3.05 RATIO 03/31/2013 FREE T4 2317886 FREE T4 1.19 NG/DL 03/31/2013 CHEM 14 20280229 AST 16 U/L 03/31/2013 CHEM 14 20280229 ALT 12 IU/L 03/31/2013 CHEM 14 9550862 BUN 17 MG/DL 03/31/2013 CHEM 14 5168348 ALBUMIN 4.5 GM/DL 03/31/2013 CHEM 14 7864259 CHLORIDE 98 MMOL/L 03/31/2013 CHEM 14 7761565 BILI TOT 0.7 MG/DL 03/31/2013 CHEM 14 0697988 ALK PHOS 53 U/L 03/31/2013 CHEM 14 8905909 SODIUM 137 MMOL/L 03/31/2013 CHEM 14 1193630 CREATININE 0.66 MG/DL 03/31/2013 CHEM 14 7848631 CALCIUM 9.6 MG/DL 03/31/2013 CHEM 14 3072002 POTASSIUM 4.2 MMOL/L 03/31/2013 CHEM 14 2101273 PROT TOT 6.7 GM/DL 03/31/2013 CHEM 14 0058525 GLUCOSE 101 MG/DL 03/31/2013 CHEM 14 9188386 BICARB 33 MMOL/L 03/31/2013 CHEM 14 9724341 ANION GAP 6 MEQ/L 03/31/2013 CBC 1726963 WBC 7.5 10e9/L 03/31/2013 CBC 0111560 RBC 4.39 10e12/L 03/31/2013 CBC 8054352 HGB 13.0 g/dL 03/31/2013 CBC 9517518 HCT DET 40.2 % 03/31/2013 CBC 0958207 MCV 91.6 fL 03/31/2013 CBC 0659112 MCH 29.6 pg 03/31/2013 CBC 7319445 MCHC 32.3 g/dL 03/31/2013 CBC 0201685 PLT 305 10e9/L 03/31/2013 CBC 9776929 MPV 10.4 fL 03/31/2013 CBC 8890133 NNEKA % 56.8 % 03/31/2013 CBC 9740778 LY % 30.3 % 03/31/2013 CBC 1856459 MON % 9.8 % 03/31/2013 CBC 6617303 EOS % 2.3 % 03/31/2013 CBC 2665730 BASO % 0.8 % 03/31/2013 CBC 9464670 RDW 13.2 % 03/31/2013 CBC 0751201 ABS NNEKA 4.26 10e9/L 03/31/2013 CBC 2767302 ABS LYMPH 2.27 10e9/L 03/31/2013 CBC 1193462 ABS MONO 0.74 10e9/L 03/31/2013 CBC 5060415 ABS EOS 0.17 10e9/L 03/31/2013 CBC 5039865 ABS BASO 0.06 10e9/L 03/31/2013 CBC 7866447 RDW-SD 43.2 fL 03/31/2013 LIPID GRP HDL TEST 49 MG/DL 09/11/2012 LIPID GRP TRIG 134 MG/DL 09/11/2012 LIPID GRP TEST LDL 81 MG/DL 09/11/2012 LIPID GRP CHOL 157 MG/DL 09/11/2012 LIPID GRP 8163211 RCHOL/HDL 3.20 RATIO 09/11/2012 TSH 1613031 TSH 2.118 uIU/ML 09/11/2012 CBC 5386890 WBC 7.5 10e9/L 09/11/2012 CBC 9007908 RBC 3.99 10e12/L 09/11/2012 CBC 4263636 HGB 11.7 g/dL 09/11/2012 CBC 2625472 HCT DET 37.7 % 09/11/2012 CBC 8768401 MCV 94.5 fL 09/11/2012 CBC 7865199 MCH 29.3 pg 09/11/2012 CBC 5898477 MCHC 31.0 g/dL 09/11/2012 CBC 0900559 PLT 384 10e9/L 09/11/2012 CBC 8797303 MPV 11.0 fL 09/11/2012 CBC 2689481 NNEKA % 51.7 % 09/11/2012 CBC 6505009 LY % 35.2 % 09/11/2012 CBC 8923179 MON % 10.4 % 09/11/2012 CBC 3146348 EOS % 2.3 % 09/11/2012 CBC 2260618 BASO % 0.4 % 09/11/2012 CBC 2418287 RDW 14.2 % 09/11/2012 CBC 3467326 ABS NNEKA 3.88 10e9/L 09/11/2012 CBC 2519626 ABS LYMPH 2.64 10e9/L 09/11/2012 CBC 1823160 ABS MONO 0.78 10e9/L 09/11/2012 CBC 6864488 ABS EOS 0.17 10e9/L 09/11/2012 CBC 1827616 ABS BASO 0.03 10e9/L 09/11/2012 CBC 9862802 RDW-SD 47.1 fL 09/11/2012 CHEM 14 2418766 AST 16 U/L 09/11/2012 CHEM 14 2117945 ALT 15 IU/L 09/11/2012 CHEM 14 0013275 BUN 11 MG/DL 09/11/2012 CHEM 14 4146120 ALBUMIN 4.2 GM/DL 09/11/2012 CHEM 14 5274311 CHLORIDE 101 MMOL/L 09/11/2012 CHEM 14 8109375 BILI TOT 0.8 MG/DL 09/11/2012 CHEM 14 3080542 ALK PHOS 57 U/L 09/11/2012 CHEM 14 4301605 SODIUM 141 MMOL/L 09/11/2012 CHEM 14 8051642 CREATININE 0.62 MG/DL 09/11/2012 CHEM 14 2464945 CALCIUM 9.5 MG/DL 09/11/2012 CHEM 14 4286979 POTASSIUM 4.7 MMOL/L 09/11/2012 CHEM 14 7429379 PROT TOT 6.6 GM/DL 09/11/2012 CHEM 14 7956648 GLUCOSE 90 MG/DL 09/11/2012 CHEM 14 3106811 BICARB 32 MMOL/L 09/11/2012 CHEM 14 0627407 ANION GAP 8 MEQ/L 09/11/2012 A1C HPLC 4538357 A1C HPLC 97531-2 4.5 % 09/11/2012 GFR CALC 9649003 GFR AA >60 ML/MIN 09/11/2012 GFR CALC 0834778 GFR NON-AA >60 ML/MIN 09/11/2012 FREE T4 2904949 FREE T4 1.30 NG/DL 09/11/2012 BMP 8854219 GLUCOSE 93 MG/DL 04/16/2012 BMP 3044995 CREATININE 0.64 MG/DL 04/16/2012 BMP 2997212 BUN 12 MG/DL 04/16/2012 BMP 3635136 SODIUM 139 MMOL/L 04/16/2012 BMP 1862896 POTASSIUM 4.1 MMOL/L 04/16/2012 BMP 0519401 CHLORIDE 99 MMOL/L 04/16/2012 BMP 4370352 BICARB 32 MMOL/L 04/16/2012 BMP 0028416 ANION GAP 8 MEQ/L 04/16/2012 BMP 0004203 CALCIUM 9.8 MG/DL 04/16/2012 CBC 4125541 WBC 8.5 10e9/L 04/16/2012 CBC 5194629 RBC 3.98 10e12/L 04/16/2012 CBC 5393119 HGB 11.5 g/dL 04/16/2012 CBC 7441122 HCT DET 36.7 % 04/16/2012 CBC 2085742 MCV 92.2 fL 04/16/2012 CBC 1617415 MCH 28.9 pg 04/16/2012 CBC 5262496 MCHC 31.3 g/dL 04/16/2012 CBC 8207339 PLT 321 10e9/L 04/16/2012 CBC 0542454 MPV 10.2 fL 04/16/2012 CBC 5989467 NNEKA % 64.3 % 04/16/2012 CBC 7917811 LY % 24.3 % 04/16/2012 CBC 6164397 MON % 9.0 % 04/16/2012 CBC 9775184 EOS % 1.9 % 04/16/2012 CBC 7262942 BASO % 0.5 % 04/16/2012 CBC 7515230 RDW 13.7 % 04/16/2012 CBC 7456848 ABS NNEKA 5.47 10e9/L 04/16/2012 CBC 6265057 ABS LYMPH 2.07 10e9/L 04/16/2012 CBC 0011560 ABS MONO 0.77 10e9/L 04/16/2012 CBC 7920529 ABS EOS 0.16 10e9/L 04/16/2012 CBC 2846733 ABS BASO 0.04 10e9/L 04/16/2012 CBC 2939369 RDW-SD 44.6 fL 04/16/2012 GFR CALC 8417619 GFR AA >60 ML/MIN 04/16/2012 GFR CALC 3955245 GFR NON-AA >60 ML/MIN 04/16/2012 URINALYSIS NONAUTO W/O SCOPE 29837 Specific [place] 1.015 DateTime(Free Text in Aprima) URINALYSIS NONAUTO W/O SCOPE 14959 PH 6.0 DateTime(Free Text in Aprima) URINALYSIS NONAUTO W/O SCOPE 40171 GLUCOSE neg DateTime( Free Text in Aprima) URINALYSIS NONAUTO W/O SCOPE 01129 Protein neg DateTime( Free Text in Aprima) URINALYSIS NONAUTO W/O SCOPE 29316 Blood 1+ DateTime(Free Text in Aprima) URINALYSIS NONAUTO W/O SCOPE 60932 Bilirubin neg DateTime(Free Text in Aprima) URINALYSIS NONAUTO W/O SCOPE 49752 Ketones neg DateTime( Free Text in Aprima) URINALYSIS NONAUTO W/O SCOPE 53464 Urobilinogen neg DateTime(Free Text in Aprima) URINALYSIS NONAUTO W/O SCOPE 28635 Nitrite positive DateTime(Free Text in Aprima) URINALYSIS NONAUTO W/O SCOPE 31882 Leukocytes 1+ DateTime(Free Text in Aprima) UA 21060 Specific [place] 1.015 DateTime(Free Text in Aprima ) UA 33483 PH 5 DateTime(Free Text in Aprima) UA 94133 GLUCOSE neg DateTime(Free Text in Aprima) UA 53243 Protein neg DateTime(Free Text in Aprima) UA 41217 Blood neg DateTime(Free Text in Aprima) UA 88810 Bilirubin neg DateTime(Free Text in Aprima) UA 34663 Ketones neg DateTime(Free Text in Aprima) UA 47497 Urobilinogen neg DateTime(Free Text in Aprima) UA 23661 Nitrite neg DateTime(Free Text in Aprima) UA 34720 Leukocytes neg DateTime(Free Text in Aprima) URINALYSIS NONAUTO W/O SCOPE 56933 Specific [place] 1.010 DateTime(Free Text in Aprima) URINALYSIS NONAUTO W/O SCOPE 27843 PH 5.0 DateTime(Free Text in Aprima) URINALYSIS NONAUTO W/O SCOPE 91454 GLUCOSE NEG DateTime( Free Text in Aprima) URINALYSIS NONAUTO W/O SCOPE 37071 Protein NEG DateTime( Free Text in Aprima) URINALYSIS NONAUTO W/O SCOPE 79189 Blood NEG DateTime(Free Text in Aprima) URINALYSIS NONAUTO W/O SCOPE 74161 Bilirubin NEG DateTime(Free Text in Aprima) URINALYSIS NONAUTO W/O SCOPE 75680 Ketones NEG DateTime( Free Text in Aprima) URINALYSIS NONAUTO W/O SCOPE 93455 Urobilinogen NEG DateTime(Free Text in Aprima) URINALYSIS NONAUTO W/O SCOPE 74006 Nitrite NEG DateTime( Free Text in Aprima) URINALYSIS NONAUTO W/O SCOPE 57524 Leukocytes ++ DateTime(Free Text in Aprima) URINALYSIS NONAUTO W/O SCOPE 27084 Specific [place] 1.010 DateTime(Free Text in [facility]) URINALYSIS NONAUTO W/O SCOPE 95727 PH 6.0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 Activity Notes Codes Status Date Referral: External, Ordering Provider Patient informed. Completed [...] and back. 05/29/2018 Appointment: Concepción Flanagan WPtel: [address] [place], [place] [address] (15 min) Moderate 05/29/2018 Patient Education: Patient Medication Summary Completed 05/29/2018 Care Plan: Referral Order SNOMED-CT : 002167776 Pending 05/29/2018 Visit Plan: Wound Instructions - [...] removal process. 02/06/2018 Appointment: Hayley London WPtel: [address] [place], [place] [address] (15 min) Moderate 02/06/2018 Patient Education: Patient [...] medications. 01/23/2018 Appointment: Concepción Flanagan WPtel: [phone] [facility] (15 min) Moderate 01/23/2018 Patient Education: Patient Medication Summary Completed 01/23/2018 Visit Plan: Cough - improved - sinusitis resolved. 09/26/2017 Appointment: Concepción Flanagan WPtel: [phone] [facility] (15 min) Moderate 09/26/2017 Patient Education: Patient Medication Summary Completed 09/26/2017 Visit Plan: Acute Maxillary Sinusitis - if not improving - pt would like to see an ENT - [facility] Tompkins in [place]. Treatment as follows: cefdinir - antibiotic twice [...] refilled hydrocodone. 09/12/2017 Appointment: Concepción Flanagan WPtel: [facility] (15 min) Moderate 09/12/2017 Patient Education: Patient [...] allergy spray. 08/31/2017 Appointment: Hayley London WPtel: [facility]5 [facility] (30 min) Complex 08/31/2017 Patient Education: Patient Medication Summary Completed 08/31/2017 Visit Plan: URI - Pt advised to increase fluids, vitamin C. Discussed natural and expected course of this diagnosis and need to alert me if symptoms do not follow expected course, or if any worse. RX sent to patient' s pharmacy. 08/09/2017 Appointment: Chaparrita Arrieta WPtel: [phone] (30 min) Complex 08/09/2017 Patient Education: Patient [...] refilled hydrocodone. 05/07/2017 Appointment: [phone] (15 min) Moderate 05/07/2017 Patient Education: [...] care surrogate. 04/12/2017 Appointment: [facility] London [facility]el[phone] [facility] - Annual Wellness Visit 04/12/2017 Patient Education: Patient Medication Summary Completed 04/12/2017 Appointment: Nurse Visit 02/15/2017 Patient Education: Patient Medication Summary Completed 02/15/2017 Visit Plan: Vgpvn-lhldyfynon-uccjo zpack when finished with cipro-follow up chest [...] day-follow up Sunday02/02/2017 Appointment: Chaparrita Arrieta WPtel: [phone] (15 min) Moderate 02/02/2017 Patient Education: Patient Medication Summary Completed 02/02/2017 Patient Education: Obesity Completed 02/02/2017 Visit Plan: Sinusitis - Pt has acute infection - pain in face, maxillary region, Pt informed to use decongestant, RX given to patient, sinus rinses also recommended. Call if symptoms do not show improvement. 01/15/2017 Appointment: Chaparrita Arrieta WPtel: [phone] (10 min) Simple 01/15/2017 Patient Education: [...] today 01/04/2017 Appointment: Concepción Flanagan WPtel: [phone] [facility] (15 min) Moderate 01/04/2017 Patient Education: [...] (lexapro). 09/07/2016 Appointment: Concepción Flanagan [facility]Ptel[phone] [facility] (30 min) Complex 09/07/2016 Patient Education: [...] home. 07/06/2016 Appointment: Concepción Flanagan [facility]Ptel[phone] [facility] (15 min) Moderate 07/06/2016 Patient Education: [...] DAILY 06/08/2016 Appointment: Concepción Flanagan WPtel: [phone] [facility] (15 min) Moderate 06/08/2016 Patient Education: Patient [...] edema. 04/06/2016 Appointment: Concepción Flanagan WPtel[phone] [facility] (15 min) Moderate 04/06/2016 Patient Education: [...] for Mikala. 01/18/2016 Appointment: Concepción Flanagan WPtel: [address] [place], [place] [address] (15 min) Moderate 01/18/2016 Patient Education: Patient [...] daytime fatigue improved-will fax today's note to [facility] for re-certification of oxygen. 09/09/2015 Appointment: (15 [...] discuss with her son who is a Intermediate Card Tender - and consider re-evaluation for nasal pillows with her cpap since she could not tolerate a face mask cpap in the past. 12/25/2014 Appointment: Concepción Flanagan WPtel: [phone] [facility] Follow up 12/25/2014 Patient Education: Patient [...] at home. 10/13/2014 Appointment: Concepción Flanagan WPtel: [phone] [facility] Follow up 10/13/2014 Patient Education: Patient [...] her . 08/28/2014 Appointment: Concepción Flanagan WPtel: [phone] [facility] Follow up 08/28/2014 Patient Education: Patient [...] creatinine. 04/16/2014 Appointment: Concepción Flanagan WPtel[phone] [facility] Follow up 04/16/2014 Patient Education: Patient Medication Summary Completed 04/16/2014 Patient Education: Patient Medication Summary Completed 04/14/2014 Patient Education: Hypertension Completed 04/14/2014 Visit Plan: Wound Instructions - Pt was instruced to keep the wound clean, wash with antibacterial soap, use triple antibiotic ointment, call if redness, pustular drainage, or any other acute conerns. 01/27/2014 Appointment: Concepción Flanagan WPtel: [phone] [facility] [facility] Procedure 01/27/2014 Patient Education: Patient [...] home eval. 01/21/2014 Appointment: Concepción Flanagan WPtel: [facility] Follow up 01/21/2014 Patient Education: Patient Medication Summary Completed 01/21/2014 Patient Education: Hypertension Completed 01/21/2014 Visit Plan: Hypotension - Bradycardia - pt to stop her metroprolol - check bp and heart rate twice daily and monitor symptoms. Call if bp uncontrolled- or heart rate to elevated. 01/07/2014 Appointment: Concepción Flanagan WPtel: 101 [facility] Follow up 01/07/2014 Patient Education: Hypertension Completed [...] and swallow 11/12/2013 Appointment: Chaparrita Arrieta WPtel: [address] [place], [place] [id number] [place] [address] Sick 11/12/2013 Patient Education: Patient Medication Summary Completed 11/12/2013 Patient Education: Hypertension Completed 11/12/2013 Visit Plan: Sinusitis - Pt has acute infection - pain in face, maxillary region, Pt informed to use decongestant, RX given to patient, sinus rinses also recommended. Call if symptoms do not show improvement. 10/09/2013 Appointment: Chaparrita Arrieta WPtel: [phone] Sick 10/09/2013 Patient Education: Patient Medication Summary [...] check UA 04/03/2013 Appointment: Concepción Flanagan WPtel: [facility] Follow up 04/03/2013 Patient Education: Patient Medication Summary Completed 04/03/2013 Patient Education: Hypertension Completed 04/03/2013 Patient Education: Patient Medication Summary Completed 03/31/2013 Patient Education: Hypertension Completed 03/31/2013 Visit Plan: ua performed - sent for culture if indicated. 03/21/2013 Appointment: Concepción Flanagan WPtel: [facility] [place] [phone] Lab Draw 03/21/2013 Patient Education: Patient Medication [...] edema. 01/06/2013 Appointment: Concepción Flanagan WPtel: [phone] [facility] Follow up 01/06/2013 Patient Education: Patient Medication Summary Completed 01/06/2013 Patient Education: Hypertension Completed 01/06/2013 Visit Plan: Fiiulvyiz-Tylwai-odjcttbu not well controlled- KENALOG injection today in [...] edema. 10/28/2012 Appointment: Concepción Flanagan WPtel[phone] [facility] Follow up 10/28/2012 Patient Education: Patient [...] recommendations. 09/30/2012 Appointment: Concepción Flanagan WPtel: [phone] [facility] Follow up 09/30/2012 Patient Education: Patient Medication Summary Completed 09/30/2012 Patient Education: Hypertension Completed 09/30/2012 Appointment: Concepción Flanagan WPtel: [facility] Lab Draw 09/11/2012 Patient Education: Patient Medication [...] - resolved 08/14/2012 Appointment: Concepción Flanagan WPtel: [facility] Follow up 08/14/2012 Patient Education: Patient Medication Summary Completed 08/14/2012 Patient Education: Hypertension Completed 08/14/2012 Visit Plan: Cellulitis - start with generic Bactrim DS as directed, return to clinic as previously directed, call for acute change in symptoms, worsening redness, warmth, discharge. 08/05/2012 Appointment: Concepción Flanagan WPtel: [phone] [facility] Follow up 08/05/2012 Patient Education: Patient [...] daily to help soften stools. 07/15/2012 Appointment: Demi Flanagany WPtel: [facility] [facility] follow up 07/15/2012 Patient Education: Patient Medication Summary Completed 07/15/2012 Patient Education: Hypertension Completed 07/15/2012 Visit Plan: Subungual discoloratiion of toenail- June 10 pt is to see Dr. Bee - I have discussed the case with the pt and Dr. bee and she will likely have a biopsy of the digit and avulsion of the nail. 05/27/2012 Appointment: Concepción Flanagan WPtel: [facility] [facility] 05/27/2012 Patient Education: Patient Medication Summary Completed 05/27/2012 Appointment: Chaparrita Arrieta WPtel: [facility]7 [facility] [place] [address] Follow up 05/16/2012 Visit Plan: Obesity - [...] Influenza vaccine 05/03/2012 Appointment: Chaparrita Arrieta WPtel: [phone] Follow up 05/03/2012 Patient Education: Patient Medication Summary Completed 05/03/2012 Visit Plan: Wound Instructions - Pt was instruced to keep the wound clean, wash with antibacterial soap, use triple antibiotic ointment, call if redness, pustular drainage, or any other acute conerns. 04/23/2012 Appointment: Panchito Concepción WPtel: [facility] [facility] Procedure 04/23/2012 Patient Education: Patient Medication Summary Completed 04/23/2012 Appointment: Demi Flanagany WPtel: [facility] Lab Draw 04/16/2012 Patient Education: Patient [...] readings at home. Recommend follow up with glass vial bending conveyor feeder for clearance before knee surgery. Will get [...] thighs. 03/25/2012 Appointment: Concepción Flanagan WPtel: [phone] [facility] [place] Other 03/25/2012 Patient Education: Patient Medication [...] of lesion. 03/12/2012 Appointment: Chaparrita Arrieta WPtel: [facility]1 [facility] [place] [address] Other 03/12/2012 Patient Education: Patient Medication Summary [...] at home. 01/23/2012 Appointment: Concepción Flanagan WPtel: [facility] Other 01/23/2012 Patient Education: Patient Medication Summary Completed 01/23/2012 Patient Education: High Blood Pressure: Essential Hypertension Completed 2011 Visit Plan: Breast ayos-vwqv-hnxhqczvg natural and expected course of this diagnosis and to alert me if symptoms do not follow expected course, or if any worse. Plan for diagnostic mammogram, in meantime, instructed patient to get more supportive bra, use anti-inflammatories and monitor symptoms. Patient verbalized understanding of plan. 01/12/2012 Appointment: Chaparrita Arrieta WPtel: [phone] Other 01/12/2012 Patient Education: Patient Medication Summary [...] current medications. 12/25/2011 Appointment: Concepción Flanagan WPtel: [facility] Other 12/25/2011 Patient Education: Patient Medication [...] COMPRESSION SOCKS. 12/04/2011 Appointment: Concepción Flanagan WPtel: [facility] Other 12/04/2011 Patient Education: Patient Medication Summary Completed 12/04/2011 Patient Education: High Blood Pressure: Essential Hypertension Completed 2011 Appointment: Chaparrita Arrieta WPtel: [phone] Lab Draw 12/01/2011 Patient Education: Patient Medication Summary Completed 12/01/2011 Appointment: Concepción Flanagan WPtel: [phone] [facility] Lab Draw 11/20/2011 Patient Education: Patient Medication [...] worsen. 09/20/2011 Appointment: Concepción Flanagan WPtel: [phone] [facility] Other 09/20/2011 Patient Education: Patient Medication Summary Completed 09/20/2011 Patient Education: High Blood Pressure: Essential Hypertension Completed 2011 Appointment: Concepción Flanagan WPtel: [phone] [facility] Other 09/13/2011 Visit Plan: Hypertension - [...] benefits of treament with the above medications. Audmtwd-lgvavxrk-YD negative 09/06/2011 Appointment: Chaparrita Arrieta WPtel: [phone] [facility] [place] [address] Other 09/06/2011 Patient Education: Patient Medication Summary [...] they worsen. 08/30/2011 Appointment: Concepción Flanagan WPtel: [phone] [facility] [place] Other 08/30/2011 Patient Education: Patient Medication [...] patient's pharmacy. 08/23/2011 Appointment: Chaparrita Arrieta WPtel: [address] [place] [address] Other 08/23/2011 Patient Education: Patient Medication Summary Completed 08/23/2011 Visit Plan: Labial cyst-discussed natural and expected course of this diagnosis and to alert me if symtpoms do not follow expected course, or if any worse. Patient and verbalized understanding. 08/09/2011 Appointment: Chaparrita Arrieta WPtel: [facility]5 [facility] [place] [address] Other 08/09/2011 Patient Education: Patient Medication Summary [...] not improving. 05/04/2011 Appointment: Concepción Flanagan WPtel: [address] [place] [address] Other 05/04/2011 Patient Education: Patient Medication Summary [...] 40mg daily. 04/19/2011 Appointment: Chaparrita Arrieta WPtel: [phone] [facility] 04/19/2011 Patient Education: Patient Medication Summary Completed 04/19/2011 Referral: External, Ordering Provider Referral Appointment Requested Instructions Comment . Wound Instructions - Pt was instruced [...] discuss with her son who is a Intermediate Card Tender - and consider re-evaluation for nasal pillows [...] twice daily and monitor symptoms. . Breast mqvl-yqyv-mthdaxubv natural and expected course of this diagnosis [...] do not improve, or if any worse.. Uguzhifkw-Ggvpit-dfpqpjmg not well controlled-KENALOG injection today in the [...] do not improve or if they worsen. cefdinir - antibiotic twice daily x 2 weeks diflucan antifungal one time daily x 2 weeks use your sinus rinse at least twice each morning and evening . Acute Maxillary Sinusitis - if not improving - pt would like to see an ENT - [facility] Tompkins in [place]. Treatment as follows: cefdinir - antibiotic twice [...] Chronic pain - symptoms - refilled hydrocodone. Cymbalta 30mg daily Call with any side [...] benefits of treament with the above medications. Dwalhvw-nsaoshfv-EI negative . Hypertension - well controlled - [...] samples given of nexium 40mg daily. . Subungual discoloratiion of toenail- June 10 [...] further attempt to reduce peripheral edema. . Uemwq-qmkybkoqcr-cbxud zpack when finished with cipro- follow up [...] readings at home. Recommend follow up with glass vial bending conveyor feeder for clearance before knee surgery. Will get [...] for levaquin also sent to patient's pharmacy. Urge incontinence -Pt [...] months based on previous levels of control. Start Norvasc (amlodipine) 5mg daily Stop the [...] pain - symptoms - refilled hydrocodone. . HTN - continue with current medications [...] to [facility] for re-certification of oxygen. rocephin/kenalog start zpack today claritin get flonase otc -1 spray each nare daily . URI - Pt advised to increase fluids, vitamin C. Discussed natural and expected course of this diagnosis and need to alert me if symptoms do not follow expected course, or if any worse. RX sent to patient's pharmacy.
--- OUTSIDE RECORDS SUMMARY | 2018-12-27 11:20 | XMS REPORT | CCD ---
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 Name Role Phone [facility] Unavailable CCM Unavailable Summary Purpose Interface Exchange Insurance Providers Payer name Policy type / Coverage type Covered libertarian ID Effective Begin Date Effective End Date WPS Medicare Part B Medicare Part B [id number] 2018 Unknown AARP Medicare Part B [id number] Unknown Family history Son Diagnosis Age At [...] status Unknown 04/19/[address]: 2083714 Quit over 10 years ago 40 pack/year [...] Start Date Stop Date Status Fill Instructions Voltaren 1 % topical gel RxNorm: 346832 APPLY TWO GRAMS TOPICALLY FOUR TIMES A DAY BILATERAL KNEES AND LOWER BACK 06/26/2018 09/23/2018 Active Lasix 40 mg tablet RxNorm: 841407 TAKE ONE TABLET BY MOUTH DAILY 06/20/2018 12/16/2018 Active Voltaren 1 % topical gel RxNorm: 339846 2 Gram(s) TOP QID bilateral knees and low back 05/29/2018 06/25/2018 Inactive Synthroid 50 mcg tablet RxNorm: 652330 Tablet(s) TAKE ONE TABLET BY MOUTH DAILY 05/17/2018 11/12/2018 Active Synthroid 50 mcg tablet RxNorm: 577200 TAKE ONE TABLET BY MOUTH DAILY 05/16/2018 05/16/2018 Inactive hydrocodone 5 mg-acetaminophen 325 mg tablet RxNorm: 625618 1/2 Tablet(s) PO QID as needed 05/15/2018 06/13/2018 Inactive Keflex 500 mg capsule RxNorm: 691962 1 Capsule(s) PO TID PRN 11/201705/06/2018 Inactive Silvadene 1 % topical cream RxNorm: 007364 1 Application TOP BID 04/30/2018 05/09/2018 Inactive Anusol-HC 25 mg rectal suppository RxNorm: 9454270 1 Suppository PRN INSERT 1 RECTALLY DAILY NEEDED 04/25/2018 No Stop Date Active Colace 100 mg capsule RxNorm: 9472977 1 Capsule(s) PO daily as needed 04/25/2018 No Stop Date Active meloxicam 15 mg tablet RxNorm: 745352 1 Tablet(s) PO daily TAKE ONE TABLET BY MOUTH ONE TIME A DAY 04/25/20182018 Active Silvadene 1 % topical cream RxNorm: 079603 1 Application TOP BID 04/25/2018 04/29/2018 Inactive Benicar 40 mg tablet RxNorm: 738278 TAKE ONE TABLET BY MOUTH DAILY 04/04/2018 03/29/2019 Active Xanax 0.25 mg tablet RxNorm: 220494 1-2 Tablet(s) PO QHS as needed insomnia 03/07/2018 06/04/2018 Inactive Lasix 40 mg tablet RxNorm: 983803 TAKE ONE TABLET BY MOUTH DAILY 01/07/2018 06/19/2018 Inactive Crestor 10 mg tablet RxNorm: 476188 TAKE 1 TABLET BY MOUTH ON SUNDAY, SUNDAY, AND Sunday11/20/2017 05/18/2018 Inactive Synthroid 50 mcg tablet RxNorm: 002730 TAKE ONE TABLET BY MOUTH DAILY 11/14/2017 05/12/2018 Inactive Cartia XT 240 mg capsule,extended release RxNorm: 440491 TAKE ONE CAPSULE BY MOUTH DAILY 09/12/2017 09/06/2018 Active Diflucan 150 mg tablet RxNorm: 480345 1 Tablet(s) PO daily 09/25/2017 Inactive cefdinir 300 mg capsule RxNorm: 692609 1 Capsule(s) PO BID 09/25/2017 Inactive prednisone 20 mg tablet RxNorm: 499038 2 Tablet(s) PO daily 12/201709/04/2017 Inactive Xanax 0.25 mg tablet RxNorm: 504694 1-2 Tablet(s) PO QHS as needed insomnia 08/28/2017 11/24/2017 Inactive Keflex 500 mg capsule RxNorm: 767649 1 Capsule(s) PO TID 201708/27/2017 Inactive Keflex 500 mg capsule RxNorm: 272326 1 Capsule(s) PO TID 201709/03/2017 Inactive Klor-Con 10 mEq tablet,extended release RxNorm: 459014 TAKE ONE TABLET BY MOUTH TWICE A DAY 08/23/2017 08/17/2018 Active cefdinir 300 mg capsule RxNorm: 974668 1 Capsule(s) PO BID 08/12/2017 Inactive cefdinir 300 mg capsule RxNorm: 711636 1 Capsule(s) PO BID 08/19/2017 Inactive Kenalog 40 mg/mL suspension for injection RxNorm: 0876092 1 Milliliter(s) Inj 08/09/2017 08/09/2017 Inactive ceftriaxone 500 mg solution for injection RxNorm: 2909581 Inj 08/09/2017 08/09/2017 Inactive Zithromax Z-Hebert 250 mg tablet RxNorm: 547495 1 Tablet(s) PO UD 08/09/2017 08/13/2017 Inactive Singulair 10 mg tablet RxNorm: 525823 TAKE ONE TABLET BY MOUTH EVERY DAY 08/03/2017 11/25/2018 Active Xanax 0.25 mg tablet RxNorm: 922561 1-2 Tablet(s) PO QHS as needed insomnia 07/25/2017 05/28/2018 Inactive Benicar 40 mg tablet RxNorm: 610660 TAKE ONE TABLET BY MOUTH DAILY 07/09/2017 04/03/2018 Inactive Lasix 40 mg tablet RxNorm: 100582 TAKE ONE TABLET BY MOUTH DAILY 07/09/2017 01/04/2018 Inactive Synthroid 50 mcg tablet RxNorm: 291762 1 Tablet(s) PO daily TAKE ONE TABLET BY MOUTH DAILY 05/21/2017 11/13/2017 Inactive Must be name brand Lasix 40 mg tablet RxNorm: 807638 TAKE ONE TABLET BY MOUTH DAILY 04/12/2017 07/08/2017 Inactive Zithromax Z-Hebert 250 mg tablet RxNorm: 582444 1 Tablet(s) PO UD 02/05/2017 02/09/2017 Inactive start with finished with cipro Cipro 500 mg tablet RxNorm: 758198 1 Tablet(s) PO BID 201602/07/2017 Inactive prednisone 20 mg tablet RxNorm: 267964 1 Tablet(s) PO BID 01/1501/19/2017 Inactive take 1 in the morning and 1 at noon calcium carbonate 600 mg calcium (1,500 mg) tablet RxNorm: 925868 1 Tablet(s) PO daily 01/04/2017 No Stop Date Active Kenalog 40 mg/mL suspension for injection RxNorm: 9876346 1 Milliliter(s) Inj 01/04/2017 01/04/2017 Inactive Anusol-HC 25 mg rectal suppository RxNorm: 2151237 1 Suppository PRN INSERT 1 RECTALLY DAILY NEEDED 01/04/20172016 Inactive Lasix 40 mg tablet RxNorm: 432677 TAKE ONE TABLET BY MOUTH DAILY 12/20/2016 04/11/2017 Inactive Cartia XT 240 mg capsule,extended release RxNorm: 713816 TAKE ONE CAPSULE BY MOUTH DAILY 12/20/2016 09/11/2017 Inactive Synthroid 50 mcg tablet RxNorm: 748660 1 Tablet(s) PO daily TAKE ONE TABLET BY MOUTH DAILY 11/27/2016 05/20/2017 Inactive Must be name brand meloxicam 15 mg tablet RxNorm: 624761 Tablet(s) TAKE ONE TABLET BY MOUTH ONE TIME A DAY 11/27/2016 06/24/2017 Inactive Crestor 10 mg tablet RxNorm: 796146 TAKE 1 TABLET BY MOUTH ON SUNDAY, SUNDAY, AND Sunday11/13/2016 10/14/2017 Inactive Lexapro 10 mg tablet RxNorm: 802523 1 Tablet(s) PO daily 201601/03/2017 Inactive please make sure that her RX for lexapro is a 10mg dose - delete the 5mg lexapro pill - this is FYI Klor-Con 10 mEq tablet,extended release RxNorm: 105688 TAKE ONE TABLET BY MOUTH TWICE A DAY 08/29/2016 02/24/2017 Inactive Kenalog 40 mg/mL suspension for injection RxNorm: 9111916 Milliliter(s) Inj 08/23/2016 08/23/2016 Inactive cefdinir 300 mg capsule RxNorm: 701351 1 Capsule(s) PO BID 08/28/2016 Inactive take probiotic while on abx Zithromax Z-Hebert 250 mg tablet RxNorm: 547489 1 Tablet(s) PO UD 08/11/2016 09/06/2016 Inactive Z PACK DIRECTED Lexapro 5 mg tablet RxNorm: 743586 TAKE ONE TABLET BY MOUTH EVERY EVENING 07/18/2016 09/06/2016 Inactive Singulair 10 mg tablet RxNorm: 438864 TAKE ONE TABLET BY MOUTH EVERY DAY 07/17/2016 08/02/2017 Inactive Benicar 40 mg tablet RxNorm: 280741 TAKE ONE TABLET BY MOUTH DAILY 07/17/2016 07/08/2017 Inactive Lexapro 10 mg tablet RxNorm: 826830 1 Tablet(s) PO daily 201509/06/2016 Inactive diltiazem ER 180 mg capsule,extended release RxNorm: 248866 TAKE ONE CAPSULE BY MOUTH DAILY 06/15/2016 07/05/2016 Inactive Lexapro 10 mg tablet RxNorm: 117413 1 Tablet(s) PO daily 201506/15/2016 Inactive gabapentin 600 mg tablet RxNorm: 284786 TAKE ONE TABLET BY MOUTH EVERY NIGHT AT BEDTIME NEEDED 04/27/2016 04/11/2017 Inactive Cartia XT 240 mg capsule,extended release RxNorm: 116480 1 Capsule(s) PO daily TAKE ONE CAPSULE BY MOUTH ONCE A DAY 04/17/2016 12/19/2016 Inactive Benicar 40 mg tablet RxNorm: 877880 1 Tablet(s) PO daily 201507/16/2016 Inactive she can do 90 days if she wants to Lexapro 5 mg tablet RxNorm: 680526 1 Tablet(s) PO QPM 201506/07/2016 Inactive Synthroid 50 mcg tablet RxNorm: 777258 1 Tablet(s) PO daily TAKE ONE TABLET BY MOUTH DAILY 01/18/2016 07/15/2016 Inactive Colace 100 mg capsule RxNorm: 5750190 1 Capsule(s) PO daily 04/24/2018 Inactive hydrocodone 5 mg-acetaminophen 325 mg tablet RxNorm: 458241 1/2 Tablet(s) PO QID as needed 01/18/2016 02/16/2016 Inactive Synthroid 50 mcg tablet RxNorm: 257510 Tablet(s) TAKE ONE TABLET BY MOUTH DAILY 12/23/2015 01/17/2016 Inactive Benicar 40 mg tablet RxNorm: 566274 1 Tablet(s) PO daily 201512/12/2015 Inactive Benicar 40 mg tablet RxNorm: 242095 1 Tablet(s) PO daily 201504/10/2016 Inactive meloxicam 15 mg tablet RxNorm: 069372 TAKE ONE TABLET BY MOUTH ONE TIME A DAY 11/12/2015 06/08/2016 Inactive meloxicam 15 mg tablet RxNorm: 005229 Tablet(s) TAKE ONE TABLET BY MOUTH ONE TIME A DAY 11/11/2015 11/11/2015 Inactive Lasix 40 mg tablet RxNorm: 967418 Tablet(s) TAKE ONE TABLET BY MOUTH EVERY DAY 10/19/2015 12/19/2016 Inactive diltiazem ER 180 mg capsule,extended release RxNorm: 521703 1 Capsule(s) daily TAKE ONE CAPSULE BY MOUTH ONCE A DAY 09/27/2015 04/16/2016 Inactive Crestor 10 mg tablet RxNorm: 052119 1 Tablet(s) PO Sun09/17/2015 07/12/2016 Inactive [SAVINGS FOR UNINSURED PATIENTS -- BIN:[id number], PCN: ASPROD1, Group: [id number], ID# [id number], Process claim through [employer], for questions: [phone]. THIS IS NOT INSURANCE.] hydrocodone 5 mg-acetaminophen 325 mg tablet RxNorm: 878482 1-2 Tablet(s) PO Q6 PRN 09/09/2015 10/08/2015 Inactive Micardis 80 mg tablet RxNorm: 817742 1 Tablet(s) PO daily TAKE ONE TABLET BY MOUTH DAILY 08/23/2015 12/12/2015 Inactive Klor-Con 10 mEq tablet,extended release RxNorm: 321025 Tablet(s) TAKE ONE TABLET BY MOUTH TWICE A DAY 08/23/20152015 Inactive Synthroid 50 mcg tablet RxNorm: 811728 TAKE ONE TABLET BY MOUTH DAILY 07/06/2015 12/22/2015 Inactive meloxicam 15 mg tablet RxNorm: 293786 TAKE ONE TABLET BY MOUTH ONE TIME A DAY 06/22/2015 11/10/2015 Inactive Singulair 10 mg tablet RxNorm: 076938 TAKE ONE TABLET BY MOUTH EVERY DAY 05/18/2015 07/16/2016 Inactive Micardis 80 mg tablet RxNorm: 122034 TAKE ONE TABLET BY MOUTH DAILY 02/22/2015 05/04/2015 Inactive gabapentin 600 mg tablet RxNorm: 096987 1 Tablet(s) PO HS as needed 01/15/2015 01/09/2016 Inactive [SAVINGS FOR NON-COVERED DRUGS -- BIN:775132, PCN: ASPROD1, Group : [id number], ID# [id number], Questions: . THIS IS NOT INSURANCE.] diltiazem ER 180 mg capsule,extended release RxNorm: 624719 TAKE ONE CAPSULE BY MOUTH ONCE A DAY 01/07/2015 09/26/2015 Inactive meloxicam 15 mg tablet RxNorm: 565072 TAKE ONE TABLET BY MOUTH ONE TIME A DAY 11/09/2014 05/07/2015 Inactive gabapentin 600 mg tablet RxNorm: 352099 1 Tablet(s) PO HS as needed 10/13/2014 01/14/2015 Inactive [SAVINGS FOR UNINSURED PATIENTS -- BIN:554249, PCN: ASPROD1, Group: [id number], ID# [id number], Process claim through [employer], for questions: [phone]. THIS IS NOT INSURANCE.] omeprazole 20 mg tablet,delayed release RxNorm: 634286 1 Tablet(s) PO daily 10/13/2014 11/11/2014 Inactive Synthroid 50 mcg tablet RxNorm: 006139 TAKE ONE TABLET BY MOUTH EVERY DAY 10/12/2014 01/09/2015 Inactive Synthroid 50 mcg tablet RxNorm: 886574 Tablet(s) TAKE ONE TABLET BY MOUTH EVERY DAY 10/12/2014 10/11/2014 Inactive [SAVINGS FOR UNINSURED PATIENTS -- BIN:015676, PCN: ASPROD1, Group: [id number], ID# [id number], Process claim through [employer], for questions: . THIS IS NOT INSURANCE.] Lasix 40 mg tablet RxNorm: 159778 Tablet(s) PO TAKE ONE TABLET BY MOUTH TWICE A DAY FOR 3 DAYS, THEN RESUME ONE DAILY EXCEPT ON WEDNESDAYS AND FRIDAYS TAKE ONE TWICE DAILY 09/22/2014 05/28/2018 Inactive [SAVINGS FOR UNINSURED PATIENTS -- BIN: 288439, PCN: ASPROD1, Group: [id number], ID# [id number], Process claim through [employer] , for questions: . THIS IS NOT INSURANCE.] Lasix 40 mg tablet RxNorm: 173209 TAKE ONE TABLET BY MOUTH EVERY DAY 09/22/2014 10/18/2015 Inactive Crestor 10 mg tablet RxNorm: 081508 1 Tablet(s) PO Sun08/28/2014 04/24/2015 Inactive [SAVINGS FOR UNINSURED PATIENTS -- BIN:348978, PCN: ASPROD1, Group: [id number], ID# [id number], Process claim through [employer], for questions: . THIS IS NOT INSURANCE.] Crestor 10 mg tablet RxNorm: 914628 1 Tablet(s) PO Sun08/28/2014 08/27/2014 Inactive [SAVINGS FOR UNINSURED PATIENTS -- BIN:232261, PCN: ASPROD1, Group: [id number], ID# [id number], Process claim through [employer], for questions: [phone]. THIS IS NOT INSURANCE.] Micardis 80 mg tablet RxNorm: 692792 TAKE ONE TABLET BY MOUTH EVERY DAY 08/24/2014 12/21/2014 Inactive Zithromax Z-Hebert 250 mg tablet RxNorm: 486347 Tablet(s) PO UD 08/18/2014 Inactive 2 tabs day 1, 1 tabs days 2-5 Anusol-HC 25 mg suppository RxNorm: 0423557 INSERT 1 RECTALLY DAILY NEEDED 07/13/2014 10/10/2014 Inactive Klor-Con 10 mEq tablet,extended release RxNorm: 794968 TAKE ONE TABLET BY MOUTH TWICE A DAY 06/18/2014 12/14/2014 Inactive Lomotil 2.5 mg-0.025 mg tablet RxNorm: 6135019 1 Tablet(s) PO PRN after each loose stool max 8 per day 06/15/201410/12 Inactive one after each loose bm limit 8 per day albuterol sulfate HFA 90 mcg/actuation aerosol inhaler RxNorm: 2938036 1 or2 Puff( s) INH Q4 PRN as needed 05/11/20142013 Inactive albuterol sulfate HFA 90 mcg/actuation aerosol inhaler RxNorm: 2400479 1 or2 Puff( s) INH Q4 PRN as needed 05/11/20142016 Inactive Premarin 0.625 mg/gram vaginal cream RxNorm: 602663 1/2 Gram(s) VAG every other day 05/11/2014 12/06/2014 Inactive Premarin 0.625 mg/gram vaginal cream RxNorm: 028528 1/2 Gram(s) VAG every other day 05/11/2014 05/10/2014 Inactive cefdinir 300 mg capsule RxNorm: 173735 1 Capsule(s) PO BID 06/201405/16/2014 Inactive Rocephin 500 mg solution for injection RxNorm: 044709 1 Milliliter(s) Inj 05/07/2014 05/07/2014 Inactive Singulair 10 mg tablet RxNorm: 029535 TAKE ONE TABLET BY MOUTH EVERY DAY 04/30/2014 10/12/2014 Inactive meloxicam 15 mg tablet RxNorm: 585565 1 Tablet(s) PO daily 11/08/2014 Inactive Crestor 10 mg tablet RxNorm: 654787 1 Tablet(s) PO Sun TAKE ONE TABLET BY MOUTH EVERY DAY 04/16/2014 08/27/2014 Inactive Synthroid 50 mcg tablet RxNorm: 561727 TAKE ONE TABLET BY MOUTH EVERY DAY 04/02/2014 09/28/2014 Inactive diltiazem ER 180 mg capsule,extended release RxNorm: 594451 1 Capsule(s) PO daily 01/05/2014 12/30/2014 Inactive Pennsaid 1.5 % topical drops RxNorm: 506591 Drop(s) TOP APPLY 15 - 20 DROPS TOPICALLY FOUR TIMES A DAY 12/29/2013 Inactive Rocephin 500 mg solution for injection RxNorm: 480757 Inj 12/2612/26/2013 Inactive Kenalog 40 mg/mL suspension for injection RxNorm: 7042062 Milliliter(s) Inj 12/26/2013 12/26/2013 Inactive Micardis 80 mg tablet RxNorm: 424412 Tablet(s) PO TAKE ONE TABLET BY MOUTH EVERY DAY 12/15/2013 08/23/2014 Inactive nystatin 100,000 unit/mL oral suspension RxNorm: 856661 4 Unit(s) PO QID swish and swallow 11/12/2013 12/09/2013 Inactive Kenalog 40 mg/mL suspension for injection RxNorm: 9824229 Milliliter(s) Inj 11/12/2013 11/12/2013 Inactive Lasix 40 mg tablet RxNorm: 215813 Tablet(s) PO TAKE ONE TABLET BY MOUTH TWICE A DAY FOR 3 DAYS, THEN RESUME ONE DAILY EXCEPT ON WEDNESDAYS AND FRIDAYS TAKE ONE TWICE DAILY 10/30/2013 09/21/2014 Inactive Lasix 40 mg tablet RxNorm: 206813 1 Tablet(s) PO daily 201310/29/2013 Inactive Rocephin 500 mg solution for injection RxNorm: 334135 1 Milliliter(s) Inj 10/09/2013 10/09/2013 Inactive metoprolol succinate ER 25 mg tablet,extended release 24 hr RxNorm: 941847 Tablet (s) PO TAKE ONE TABLET BY MOUTH EVERY DAY 10/02/2013 01/06/2014 Inactive metoprolol succinate ER 25 mg tablet,extended release 24 hr RxNorm: 919133 Tablet (s) PO TAKE ONE TABLET BY MOUTH EVERY DAY 08/04/2013 10/01/2013 Inactive Synthroid 50 mcg tablet RxNorm: 117476 Tablet(s) PO TAKE ONE TABLET BY MOUTH EVERY DAY 07/14/2013 04/01/2014 Inactive gabapentin 600 mg tablet RxNorm: 663727 1 Tablet(s) PO Q8 PRN 06/11/2013 06/11/2013 Inactive gabapentin 600 mg tablet RxNorm: 399845 1 Tablet(s) PO Q8 PRN 06/11/2013 03/07/2014 Inactive Neurontin 600 mg tablet RxNorm: 782791 1 Tablet(s) PO Q8 PRN 06/11/2013 Inactive Anusol-HC 25 mg suppository RxNorm: 2789932 Suppository RTL INSERT 1 RECTALLY DAILY NEEDED 04/24/2013 07/12/2014 Inactive metoprolol succinate ER 25 mg tablet,extended release 24 hr RxNorm: 789264 1 Tablet(s) PO daily 04/21/2013 08/03/2013 Inactive Premarin 0.625 mg/gram Vaginal Cream RxNorm: 573210 1/2 Gram(s) VAG every other day 04/03/2013 10/29/2013 Inactive Klor-Con 10 mEq tablet,extended release RxNorm: 990564 1 Tablet(s) PO daily 03/26/2013 03/20/2014 Inactive Klor-Con 10 mEq tablet,extended release RxNorm: 022696 1 Tablet(s) PO BID 03/24/2013 03/23/2013 Inactive Klor-Con 10 mEq tablet,extended release RxNorm: 242876 1 Tablet(s) PO BID 03/24/2013 03/25/2013 Inactive Klor-Con 10 mEq tablet,extended release RxNorm: 091910 1 Tablet(s) PO BID 03/24/2013 03/23/2013 Inactive Augmentin 875 mg-125 mg tablet RxNorm: 458929 1 Tablet(s) PO BID 03/12/2013 03/18/2013 Inactive Augmentin 875 mg-125 mg tablet RxNorm: 453009 1 Tablet(s) PO BID 03/12/2013 03/11/2013 Inactive ciprofloxacin 500 mg tablet RxNorm: 781607 1 Tablet(s) PO BID 03/11/2013 03/17/2013 Inactive ciprofloxacin 500 mg tablet RxNorm: 190343 1 Tablet(s) PO BID 03/11/2013 03/10/2013 Inactive Crestor 10 mg tablet RxNorm: 121859 1 Tablet(s) PO daily 201202/09/2013 Inactive Crestor 10 mg tablet RxNorm: 021965 Tablet(s) PO TAKE ONE TABLET BY MOUTH EVERY DAY 02/10/2013 04/15/2014 Inactive Singulair 10 mg tablet RxNorm: 766472 Tablet(s) PO TAKE ONE TABLET BY MOUTH EVERY DAY 02/04/2013 04/29/2014 Inactive Kenalog 40 mg/mL Susp for Injection RxNorm: 7465832 1 Milliliter(s) Inj 11/21/2012 11/21/2012 Inactive Pennsaid 1.5 % topical drops RxNorm: 970887 15-20 Drop(s) TOP QID 10/28/2012 11/21/2013 Inactive Micardis 80 mg tablet RxNorm: 591833 1 Tablet(s) PO daily 201210/22/2013 Inactive put this on file please, quantitiy increase Pennsaid 1.5 % Topical Drops RxNorm: 665459 15-20 Drop(s) TOP QID 10/28/2012 10/27/2012 Inactive diltiazem ER 180 mg capsule,extended release RxNorm: 118085 1 Capsule(s) PO daily 10/14/2012 10/08/2013 Inactive Pyridium 200 mg tablet RxNorm: 0342806 1 Tablet(s) PO Q8 PRN 10/12/2014 Inactive Flagyl 500 mg tablet RxNorm: 907424 1 Tablet(s) PO TID 201209/10/2012 Inactive Macrobid 100 mg capsule RxNorm: 8578058 1 Capsule(s) PO BID 03/201309/02/2012 Inactive Macrobid 100 mg capsule RxNorm: 3617320 1 Capsule(s) PO BID 03/201309/09/2012 Inactive sulfamethoxazole-trimethoprim 800 mg-160 mg tablet RxNorm: 278892 1 Tablet(s) PO BID 08/05/2012 08/14/2012 Inactive Lasix 40 mg tablet RxNorm: 124319 1 Tablet(s) PO BID pt is taking extra lasix x 3 days, then every sunday and sunday take two lasix pills. 07/15/2012 07/09/2013 Inactive Synthroid 50 mcg tablet RxNorm: 936771 1 Tablet(s) PO daily 07/09/2013 Inactive do not substitute the generic levothyroxine for the synthroid brand name.....she needs brand name synthroid. Klor-Con 10 mEq tablet,extended release RxNorm: 387217 1 Tablet(s) PO BID 07/15/2012 03/23/2013 Inactive Singulair 10 mg tablet RxNorm: 735506 1 Tablet(s) PO daily 02/03/2013 Inactive Lexapro 10 mg tablet RxNorm: 869115 1/2 Tablet(s) PO daily 06/03/2013 Inactive ProAir HFA 90 mcg/actuation Aerosol Inhaler RxNorm: 256998 2 INH Q6 PRN 04/23/2012 01/17/2016 Inactive Lexapro 10 mg tablet RxNorm: 186267 1/2 Tablet(s) PO daily 05/09/2012 Inactive metoprolol succinate ER 50 mg tablet,extended release 24 hr RxNorm: 189263 1 Tablet(s) PO daily 04/09/2012 04/09/2012 Inactive Klor-Con 10 10 mEq tablet,extended release RxNorm: 735576 1 Tablet(s) PO daily 04/01/2012 07/14/2012 Inactive metoprolol succinate ER 50 mg tablet,extended release 24 hr RxNorm: 139398 1/2 Tablet(s) PO BID 03/11/2012 04/08/2012 Inactive clonidine 0.1 mg Tab RxNorm: 245675 1 Tablet(s) PO BID 201103/12/2012 Inactive clonidine 0.1 mg Tab RxNorm: 609800 1 Tablet(s) PO BID 201102/18/2012 Inactive Micardis 80 mg Tab RxNorm: 156777 1 Tablet(s) PO daily 201102/13/2012 Inactive Micardis 80 mg tablet RxNorm: 541665 1 Tablet(s) PO daily 201110/27/2012 Inactive Synthroid 50 mcg tablet RxNorm: 731738 1 Tablet(s) PO daily 07/14/2012 Inactive Tekturna 300 mg Tab RxNorm: 9742358 1 Tablet(s) PO daily 02/1103/12/2012 Inactive Lasix 40 mg Tab RxNorm : 080080 1 Tablet(s) PO daily 12/18/2011 12/17/2011 Inactive Lasix 40 mg tablet RxNorm: 989299 1 Tablet(s) PO daily 201107/14/2012 Inactive Anusol-HC 25 mg Suppository RxNorm: 3952895 1 Suppository RTL QDAY PRN 12/04/2011 04/19/2012 Inactive lactobacillus acidophilus Cap RxNorm: 1 Capsule(s) PO BID 11/20/2011 Inactive lactobacillus acidophilus Cap RxNorm: 1 Capsule(s) PO BID 11/20/2011 Inactive Cipro 500 mg Tab RxNorm: 919056 1 Tablet(s) PO BID 201103/12/2012 Inactive lactobacillus acidophilus Cap RxNorm: 1 Capsule(s) PO BID 11/27/2011 Inactive lactobacillus acidophilus Cap RxNorm: 1 Capsule(s) PO BID 11/20/2011 Inactive Cipro 500 mg Tab RxNorm: 272338 1 Tablet(s) PO BID 201111/20/2011 Inactive Lexapro 10 mg Tab RxNorm: 654417 1 Tablet(s) PO daily 201111/12/2011 Inactive Lexapro 10 mg tablet RxNorm: 807753 1 Tablet(s) PO daily 201104/18/2012 Inactive amlodipine 10 mg Tab RxNorm: 650481 1 Tablet(s) PO daily 201112/03/2011 Inactive amlodipine 5 mg Tab RxNorm: 889118 1 Tablet(s) PO daily 201112/04/2011 Inactive Rocephin 500 mg Solution for Injection RxNorm: 480953 Inj 08/3009/20/2011 Inactive metoprolol succinate ER 25 mg 24 hr Tab RxNorm: 836133 1 Tablet(s) PO QHS 08/30/2011 09/20/2011 Inactive Ambien 10 mg Tab RxNorm: 848276 1 Tablet(s) PO HS PRN 08/3004/19/2012 Inactive Augmentin 875 mg-125 mg Tab RxNorm: 470133 1 Tablet(s) PO BID 08/25/2011 09/20/2011 Inactive Augmentin 875 mg-125 mg Tab RxNorm: 971183 1 Tablet(s) PO BID 08/25/2011 08/24/2011 Inactive Rocephin 500 mg Solution for Injection RxNorm: 982404 Inj 08/2308/23/2011 Inactive Levaquin 500 mg Tab RxNorm: 229875 1 Tablet(s) PO daily 201008/30/2011 Inactive chlordiazepoxide-clidinium 5 mg-2.5 mg Cap RxNorm: 238240 1 Capsule(s) PO BID 07/10/2011 04/19/2012 Inactive q 12 hours prn metoprolol succinate ER 100 mg 24 hr Tab RxNorm: 136538 1 Tablet(s) PO daily 05/29/2011 03/12/2012 Inactive Synthroid 50 mcg Tab RxNorm: 603335 1 Tablet(s) PO daily 201008/12/2011 Inactive Ambien CR 12.5 mg Tab RxNorm: 664653 1 Tablet(s) PO HS PRN 05/0908/30/2011 Inactive Ambien 10 mg Tab RxNorm: 271781 1 Tablet(s) PO QHS 201006/07/2011 Inactive Nexium 40 mg Cap RxNorm: 706313 1 Capsule(s) PO daily 05/0403/12/2012 Inactive the patient had tried pepcid, otc priolosec, RX omperazole, failed them all Bactrim DS 800 mg-160 mg Tab RxNorm: 619420 1 Tablet(s) PO BID 04/19/2011 08/30/2011 Inactive triamcinolone acetonide 40 mg/mL Susp for Injection RxNorm: 8147155 1 Milliliter(s ) Inj UD 04/19/2011 04/19/2011 Inactive aspirin 81 mg Tab, Delayed Release RxNorm: 737746 1 Tablet(s) PO daily No Start Date Active 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 Device RxNorm: Miscellaneous QHS sleep apnea, 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 No Start Date Active Cymbalta 30 mg Cap RxNorm: 345181 1 Capsule(s) PO daily No Start Date 03/12/2012 Inactive Nexium 40 mg Cap RxNorm: 324146 Capsule(s) PO No Start Date 05/03/2011 Inactive Benadryl 25 mg capsule RxNorm: 7875026 1 Capsule(s) PO QHS No Start Date 01/03/2017 Inactive Klor-Con 10 10 mEq tablet,extended release RxNorm: 262057 1 Tablet(s) PO daily No Start Date 03/31/2012 Inactive Metamucil Oral RxNorm : Oral No Start Date 10/12/2014 Inactive amlodipine 10 mg Tab RxNorm: 698650 1 Tablet(s) PO daily No Start Date 10/08/2011 Inactive Norvasc 5 mg tablet RxNorm: 220322 1 Tablet(s) PO daily No Start Date 10/12/2014 Inactive Lasix 40 mg Tab RxNorm : 928536 1 Tablet(s) PO daily No Start Date 12/17/2011 Inactive diltiazem ER (XR/XT) 240 mg capsule,extended release, controlled RxNorm: 895059 1 Capsule(s) PO daily No Start Date Inactive Centrum Silver Ultra Women's oral RxNorm: 40405 oral No Start Date 04/24/2018 Inactive Synthroid 50 mcg Tab RxNorm: 089354 1 Tablet(s) PO daily No Start Date 05/14/2011 Inactive Flagyl 500 mg tablet RxNorm: 907177 1 Tablet(s) PO No Start Date 09/03/2012 Inactive one after each loose bm limit 8 per day Boniva 150 mg Tab RxNorm: 235132 1 Tablet(s) PO UD No Start Date 08/30/2011 Inactive monthly Singulair 10 mg tablet RxNorm: 113656 1 Tablet(s) PO daily No Start Date 06/11/2012 Inactive folic acid Oral RxNorm : Oral No Start Date 03/12/2012 Inactive potassium chloride ER 10 mEq tablet,extended release RxNorm: 239160 1 Tablet(s) PO daily No Start Date 01/03/2017 Inactive Probiotic & Acidophilus oral RxNorm: oral No Start Date 04/24/2018 Inactive Librium 10 mg Cap RxNorm: 510176 Capsule(s) PO UD No Start Date 03/12/2012 Inactive q 12 hours prn Crestor 10 mg tablet RxNorm: 174917 1 Tablet(s) PO daily No Start Date 02/09/2013 Inactive multivitamin Cap RxNorm: 1 Capsule(s) PO daily No Start Date 01/17/2016 Inactive metoprolol succinate ER 100 mg 24 hr Tab RxNorm: 097972 1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 Diagnosis: ESSENTIAL HYPERTENSION[SNOMED: 74970604] Diagnosis: Abdominal bloating[ICD9: 787.3] Concepción Flanagan MD, [facility] CPT- 4: 60298 03/12/2012 ([id number]) 66892 EST. PATIENT, LEVEL IV Diagnosis: ESSENTIAL HYPERTENSION[SNOMED: 62502511] Diagnosis: EDEMA[ICD9: 782.3] Concepción Flanagan MD, [facility] CPT-4: 13886 01/23/2012 ([id number]) 97886 EST. PATIENT, LEVEL III Diagnosis: Breast pain, left[ICD9: 611.71] Chaparrita Flanagan MD, [facility] CPT-4: 46939 01/12/2012 ([id number]) 68199 EST. PATIENT, LEVEL IV Diagnosis: ESSENTIAL HYPERTENSION[SNOMED: 14173602] Diagnosis: DEPRESSIVE DISORDER NEC[ICD9: 311] Diagnosis: ANXIETY STATE[ICD9: 300.00] Concepción Flanagan MD, [facility] CPT- 4: 90758 12/25/2011 ([id number]) 28559 EST. PATIENT, LEVEL IV Diagnosis: ESSENTIAL HYPERTENSION[SNOMED: 69419561] Diagnosis: EDEMA[ICD9: 782.3] Concepción Flanagan MD, [facility] CPT-4: 25045 12/04/2011 ([id number]) 90193 EST. PATIENT, LEVEL IV Diagnosis: ESSENTIAL HYPERTENSION[SNOMED: 25609943] Diagnosis: DEPRESSIVE DISORDER NEC[ICD9: 311] Concepción Flanagan MD, [facility] CPT-4: 92938 09/20/2011 51892 EST. PATIENT, LEVEL IV Diagnosis: Dysuria[ICD9: 788.1] Diagnosis: ESSENTIAL HYPERTENSION[SNOMED: 00633357] Diagnosis: Anxiety[ICD9: 300.00] Concepción Flanagan MD, [facility] CPT-4: 51553 09/06/2011 ([id number]) 85097 EST. PATIENT, LEVEL IV Diagnosis: LUMBAGO[ICD9: 724.2] Diagnosis: ESSENTIAL HYPERTENSION[SNOMED: 96359138] Concepción Flanagan MD, [facility] CPT-4: 93159 08/30/2011 69593 EST. PATIENT, LEVEL III Diagnosis: ACUTE SINUSITIS[ICD9: 461.9] Diagnosis: Urinary frequency[ICD9: 788.41] Chaparrita Flanagan MD, [facility] CPT-4: 40312 08/23/2011 64985 EST. PATIENT, LEVEL III Diagnosis: Lesion of labia[ICD9: 624.8] Chaparrita Flanagan MD, [facility] CPT-4: 80069 08/09/2011 07419 EST. PATIENT, LEVEL IV Diagnosis: HYPOTHYROIDISM[ICD9: 244.9] Diagnosis: HYPERLIPIDEMIA[ICD9: 272.4] Diagnosis: BP (high blood pressure)[SNOMED: 86970186] Diagnosis: Knee pain, bilateral[ICD9: 719.46] Diagnosis: ESOPHAGEAL REFLUX[ICD9: 530.81] Concepción Flanagan MD, [facility] CPT- 4: 10045 05/04/2011 33023 EST. PATIENT, LEVEL III Diagnosis: ACUTE URI[ICD9: 465.9] Diagnosis: Asthma[ICD9: 493.90] Diagnosis: Esophageal reflux[ICD9: 530.81] Chaparrita Flanagan MD, [facility] CPT-4: 18546 04/19/2011 Plan of Care Planned Activity Notes [...] and back. 05/29/2018 Appointment: Concepción Flanagan WPtel: [address] [place], [place] [address] (15 min) Moderate 05/29/2018 Patient Education: Patient Medication Summary Completed 05/29/2018 Care Plan: Referral Order SNOMED-CT : 557931034 Pending 05/29/2018 Visit Plan: Wound Instructions - [...] during the removal process. 02/06/2018 Appointment: Hayley Londontelea: [address] [place], [place] [address] (15 min) Moderate 02/06/2018 Patient Education: Patient [...] to medications. 01/23/2018 Appointment: Concepción Flanagan WPtel: [phone] [facility] [place] (15 min) Moderate 01/23/2018 Patient Education: Patient Medication Summary Completed 01/23/2018 Visit Plan: Cough - improved - sinusitis resolved. 09/26/2017 Appointment: Concepción Flanagan WPtel: [phone] [facility] [place] (15 min) Moderate 09/26/2017 Patient Education: Patient Medication Summary Completed 09/26/2017 Visit Plan: Acute Maxillary Sinusitis - if not improving - pt would like to see an ENT - Hortensia Tompkins in [place]. Treatment as follows: cefdinir - antibiotic twice [...] hydrocodone. 09/12/2017 Appointment: Concepción Flanagan WPtel: [phone] [facility] [place] (15 min) Moderate 09/12/2017 Patient Education: [...] allergy spray. 08/31/2017 Appointment: Hayley London WPtel: [phone] [facility] (30 min) Complex 08/31/2017 Patient Education: Patient Medication Summary Completed 08/31/2017 Visit Plan: URI - Pt advised to increase fluids, vitamin C. Discussed natural and expected course of this diagnosis and need to alert me if symptoms do not follow expected course, or if any worse. RX sent to patient' s pharmacy. 08/09/2017 Appointment: Chaparrita Arrieta WPtel: [phone] [phone] [place] (30 min) Complex 08/09/2017 Patient Education: [...] hydrocodone. 05/07/2017 Appointment: [phone] [place] (15 min) Moderate 05/07/2017 Patient [...] surrogate. 04/12/2017 Appointment: Hayley London [facility]el[phone] [facility] - Annual Wellness Visit 04/12/2017 Patient Education: Patient Medication Summary Completed 04/12/2017 Appointment: Nurse Visit 02/15/2017 Patient Education: Patient Medication Summary Completed 02/15/2017 Visit Plan: Elrmh-iqxfevwgnq-wdyqn zpack when finished with cipro-follow up chest [...] up Sunday02/02/2017 Appointment: Chaparrita Arrieta WPtel: [phone] [phone] (15 min) Moderate 02/02/2017 Patient Education: Patient Medication Summary Completed 02/02/2017 Patient Education: Obesity Completed 02/02/2017 Visit Plan: Sinusitis - Pt has acute infection - pain in face, maxillary region, Pt informed to use decongestant, RX given to patient, sinus rinses also recommended. Call if symptoms do not show improvement. 01/15/2017 Appointment: Chaparrita Arrieta WPtel: [phone] [phone] (10 min) Simple 01/15/2017 Patient Education: [...] today 01/04/2017 Appointment: Concepción Flanagan WPtel: [phone] [facility] (15 min) Moderate 01/04/2017 Patient Education: Patient [...] (lexapro). 09/07/2016 Appointment: [facility]pc[phone] (30 min) Complex 09/07/2016 Patient [...] at home. 07/06/2016 Appointment: Concepción Flanagan WPtel: [phone] [facility] (15 min) Moderate 07/06/2016 Patient Education: Patient [...] DAILY 06/08/2016 Appointment: Concepción Flanagan WPtel: [phone] [facility] (15 min) Moderate 06/08/2016 Patient Education: Patient [...] edema. 04/06/2016 Appointment: [facility]pc[facility]agan [phone] [facility] (15 min) Moderate 04/06/2016 Patient [...] for Mikala. 01/18/2016 Appointment: Concepción Flanagan WPtel: [address] [place], [place] [address] (15 min) Moderate 01/18/2016 Patient Education: Patient [...] daytime fatigue improved-will fax today's note to [facility] for re-certification of oxygen. 09/09/2015 Visit Plan: [...] daytime fatigue improved-will fax today's note to [facility] for re-certification of oxygen. 09/09/2015 Appointment: (15 [...] discuss with her son who is a [employer] - and consider re-evaluation for nasal pillows with her cpap since she could not tolerate a face mask cpap in the past. 12/25/2014 Appointment: Concepción Fl[facility]agan [facility]el[phone] [facility] Follow up 12/25/2014 Patient Education: [...] home. 10/13/2014 Appointment: [facility]pc[facility]agan [phone] Follow up 10/13/2014 Patient Education: [...] her . 08/28/2014 Appointment: Concepción Flanagan [facility]Ptel[phone] [facility] Follow up 08/28/2014 Patient Education: [...] creatinine. 04/16/2014 Appointment: Concepción Flanagan [facility]Ptel[phone] [facility] Follow up 04/16/2014 Patient Education: Patient Medication Summary Completed 04/16/2014 Patient Education: Patient Medication Summary Completed 04/14/2014 Patient Education: Hypertension Completed 04/14/2014 Visit Plan: Wound Instructions - Pt was instruced to keep the wound clean, wash with antibacterial soap, use triple antibiotic ointment, call if redness, pustular drainage, or any other acute conerns. 01/27/2014 Appointment: Concepción Flanagan WPtel: [phone] [facility] Surgical Procedure 01/27/2014 Patient Education: Patient Medication [...] home eval. 01/21/2014 Appointment: Concepción Flanagan WPtel: [address] [facility] Follow up 01/21/2014 Patient Education: Patient Medication Summary Completed 01/21/2014 Patient Education: Hypertension Completed 01/21/2014 Visit Plan: Hypotension - Bradycardia - pt to stop her metroprolol - check bp and heart rate twice daily and monitor symptoms. Call if bp uncontrolled- or heart rate to elevated. 01/07/2014 Appointment: Concepción Flanagan [facility]Ptel[phone] [facility] Follow up 01/07/2014 Patient Education: Hypertension [...] and swallow 11/12/2013 Appointment: Chaparrita Arrieta WPtel: [address] [employer] [place] [phone] Sick 11/12/2013 Patient Education: Patient Medication Summary Completed 11/12/2013 Patient Education: Hypertension Completed 11/12/2013 Visit Plan: Sinusitis - Pt has acute infection - pain in face, maxillary region, Pt informed to use decongestant, RX given to patient, sinus rinses also recommended. Call if symptoms do not show improvement. 10/09/2013 Appointment: Chaparrita Arrieta WPtel: [phone] Sick 10/09/2013 Patient Education: Patient Medication [...] check UA 04/03/2013 Appointment: Concepción Flanagan WPtel: [facility]5 [facility] Follow up 04/03/2013 Patient Education: Patient Medication Summary Completed 04/03/2013 Patient Education: Hypertension Completed 04/03/2013 Patient Education: Patient Medication Summary Completed 03/31/2013 Patient Education: Hypertension Completed 03/31/2013 Visit Plan: ua performed - sent for culture if indicated. 03/21/2013 Appointment: Concepción Flanagan WPtel: [address] [place], [place] [phone] Lab Draw 03/21/2013 Patient Education: Patient Medication [...] edema. 01/06/2013 Appointment: Concepción Flanagan WPtel: [phone] [facility] Follow up 01/06/2013 Patient Education: Patient Medication Summary Completed 01/06/2013 Patient Education: Hypertension Completed 01/06/2013 Visit Plan: Vonojylcl-Xecsfl-krvfieov not well controlled- KENALOG injection today in [...] edema. 10/28/2012 Appointment: [facility]agan [phone] Follow up 10/28/2012 Patient Education: [...] recommendations. 09/30/2012 Appointment: Concepción Flanagan WPtel: [phone] [facility] Follow up 09/30/2012 Patient Education: Patient Medication Summary Completed 09/30/2012 Patient Education: Hypertension Completed 09/30/2012 Appointment: Concepción Flanagan WPtel: [phone] [facility] Lab Draw 09/11/2012 Patient Education: Patient Medication [...] - resolved 08/14/2012 Appointment: Concepción Flanagan WPtel: [address] [place], [place] [phone] Follow up 08/14/2012 Patient Education: Patient Medication Summary Completed 08/14/2012 Patient Education: Hypertension Completed 08/14/2012 Visit Plan: Cellulitis - start with generic Bactrim DS as directed, return to clinic as previously directed, call for acute change in symptoms, worsening redness, warmth, discharge. 08/05/2012 Appointment: Concepción Flanagan WPtel: [address] [place], [place] [phone] Follow up 08/05/2012 Patient Education: Patient Medication [...] soften stools. 07/15/2012 Appointment: Concepción Flanagan WPtel: [facility] [facility] follow up 07/15/2012 Patient Education: Patient Medication Summary Completed 07/15/2012 Patient Education: Hypertension Completed 07/15/2012 Visit Plan: Subungual discoloratiion of toenail- June 10 [address] is to see Dr[address] Bee - I have discussed the case with the pt and Dr. bee and she will likely have a biopsy of the digit and avulsion of the nail. 05/27/2012 Appointment: Concepción Flanagan WPtel: [facility]5 [facility] Other 05/27/2012 Patient Education: Patient Medication Summary Completed 05/27/2012 Appointment: Chaparrita Arrieta WPtel: [facility]5 [phone] Follow up 05/16/2012 Visit Plan: Obesity [...] Appointment: Chaparrita Arrieta WPtel: [facility]5 [phone] [place] Follow up 05/03/2012 Patient Education: Patient Medication Summary Completed 05/03/2012 Visit Plan: Wound Instructions - Pt was instruced to keep the wound clean, wash with antibacterial soap, use triple antibiotic ointment, call if redness, pustular drainage, or any other acute conerns. 04/23/2012 Appointment: Concepción Flanagan WPtel: [facility]7 [facility] Surgical Procedure 04/23/2012 Patient Education: Patient Medication Summary Completed 04/23/2012 Appointment: Concepción Flanagan WPtel: [phone] [facility] 04/16/2012 Patient Education: Patient Medication [...] readings at home. Recommend follow up with credit risk officer for clearance before knee surgery. Will get [...] thighs. 03/25/2012 Appointment: Concepción Flanagan WPtel[phone] Other 03/25/2012 Patient Education: Patient Medication [...] Appointment: Chaparrita Arrieta WPtel: [facility]5 [facility] [place] [address] Other 03/12/2012 Patient Education: Patient Medication Summary [...] at home. 01/23/2012 Appointment: Concepción Flanagan WPtel: [facility]5 [facility] Other 01/23/2012 Patient Education: Patient Medication Summary Completed 01/23/2012 Patient Education: High Blood Pressure: Essential Hypertension Completed 2011 Visit Plan: Breast emrz-hdyz-tmkyxushi natural and expected course of this diagnosis and to alert me if symptoms do not follow expected course, or if any worse. Plan for diagnostic mammogram, in meantime, instructed patient to get more supportive bra, use anti-inflammatories and monitor symptoms. Patient verbalized understanding of plan. 01/12/2012 Appointment: Chaparrita Arrieta WPtel: [phone] [phone] Other 01/12/2012 Patient Education: Patient Medication Summary [...] 12/25/2011 Appointment: Concepción Flanagan WPtel: [facility]5 [facility] Other 12/25/2011 Patient Education: Patient Medication Summary [...] COMPRESSION SOCKS. 12/04/2011 Appointment: Concepción Flanagan WPtel: [facility] Other 12/04/2011 Patient Education: Patient Medication Summary Completed 12/04/2011 Patient Education: High Blood Pressure: Essential Hypertension Completed 2011 Appointment: Chaparrita Arrieta WPtel: [facility]5 [phone] [place] Lab Draw 12/01/2011 Patient Education: Patient Medication Summary Completed 12/01/2011 Appointment: Concepción Flanagan WPtel: [address] [place], [place] [phone] Lab Draw 11/20/2011 Patient Education: Patient Medication [...] worsen. 09/20/2011 Appointment: Concepción Flanagan WPtel: [phone] [facility] Other 09/20/2011 Patient Education: Patient Medication Summary Completed 09/20/2011 Patient Education: High Blood Pressure: Essential Hypertension Completed 2011 Appointment: Concepción Flanagan WPtel: [phone] [facility] Other 09/13/2011 Visit Plan: Hypertension - The [...] benefits of treament with the above medications. Nixhlpn-uctridxb-TK negative 09/06/2011 Appointment: Chaparrita Arrieta WPtel: [address] [place] [address] Other 09/06/2011 Patient Education: Patient Medication Summary [...] they worsen. 08/30/2011 Appointment: Concepción Flanagan WPtel: [address] [place] [address] Other 08/30/2011 Patient Education: Patient Medication Summary [...] 08/23/2011 Appointment: Chaparrita Arrieta WPtel: [phone] [place] Other 08/23/2011 Patient Education: Patient Medication Summary Completed 08/23/2011 Visit Plan: Labial cyst-discussed natural and expected course of this diagnosis and to alert me if symtpoms do not follow expected course, or if any worse. Patient and verbalized understanding. 08/09/2011 Appointment: Chaparrita Arrieta WPtel: [phone] [facility] Other 08/09/2011 Patient Education: Patient Medication Summary [...] improving. 05/04/2011 Appointment: Concepción Flanagan WPtel: [phone] [facility] [place] Other 05/04/2011 Patient Education: Patient Medication [...] 40mg daily. 04/19/2011 Appointment: Chaparrita Arrieta WPtel: [phone] Other 04/19/2011 Patient Education: Patient Medication Summary Completed 04/19/2011 Referral: External, Ordering Provider Referral Appointment Requested Instructions Comment . Obesity - chronic issue with this [...] see an ENT - Hortensia Tompkins in [place]. Treatment as follows: cefdinir - antibiotic twice [...] discuss with her son who is a [employer] - and consider re-evaluation for nasal pillows with her cpap since she could not tolerate a face mask cpap in the past. Recommend diagnostic mammogram with ultrasound if needed Get supportive bra and make sure your breasts are well suppported. Recommend aleve twice daily and monitor symptoms. . Breast lsoj-lrxa-dbcplmmrv natural and expected course of this diagnosis [...] to further attempt to reduce peripheral edema. 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 . Hypertension [...] do not improve, or if any worse.. Ljbektjlc-Onyclj-cjbychbq not well controlled-KENALOG injection today in the office-use albuterol as needed. Instructed patient to continue with singulair daily and call if symptoms do not improve, or worsen. . ua performed - sent for culture if indicated. . Hypertension - well controlled - continue [...] if the symptoms are not improving. . Cellulitis - start with generic Bactrim [...] etc. samples given of nexium 40mg daily. stop metoprolol blood pressure and heart rate [...] not improve or if they worsen. . Medicare Exam - today we discussed [...] her DOPA paperwork for health care surrogate. Cymbalta 30mg daily Call with any side [...] benefits of treament with the above medications. Twvznqi-jlvduzwd-PW negative . Cerumen Impaction - The impacted cerumen [...] patient stabilized during the removal process. . Subungual discoloratiion of toenail- June 10 pt is to see Dr[address] Bee - I have discussed the case with the pt and Dr. bee and she will likely have a biopsy of the digit and avulsion of the nail. . Wound Instructions - Pt was instruced to keep the wound clean, wash with antibacterial soap, use triple antibiotic ointment, call if redness, pustular drainage, or any other acute conerns. . continue with benicar 40mg, and increase her diltiazem to 240mg daily FLONASE 1 SPRAY EACH NARE DAILY PREDNISONE [...] benefits of treatment with the medication (lexapro). MIRALAX TO BE STARTED AND TAKEN DAILY [...] use this daily to help soften stools. INCREASE THE LEXAPRO TO 10MG DAILY START [...] Cough - improved - sinusitis resolved. . Wound Instructions - Pt was instructed to keep the wound clean, call if redness, pustular drainage, or any other acute concerns. . Hypertension - well controlled - continue [...] - start on meloxicam, monitor creatinine. . Hypertension - uncontrolled - the patient's [...] readings at home. Recommend follow up with credit risk officer for clearance before knee surgery. Will get [...] at home. Dysuria - check UA . Allergies - chronic - recommended pt to use allergy medication as prescribed. Pt has been counseled as the the appropriate use of the medication. Pt to call if allergy symptoms are not controlled with the medication. Kenalog injection today in the office. Thrush-RX for nystatin swish and swallow Recommend nasal saline rinse . Sinusitis - [...] worse. RX sent to patient's pharmacy. . Kouzk-dyfhudyzcp-rjife zpack when finished with cipro- follow up [...] based on previous levels of control. . URI - Pt advised to increase [...]
--- OUTSIDE RECORDS SUMMARY | 2018-12-27 11:29 | XMS REPORT | CCD ---
Author Author [facility] Address [address] [place] [address] Phone Care Team Providers Care Insurance Inspector Name Role Phone Concepción Flanagan PP Unavailable CCM Unavailable Summary Purpose Interface Exchange Insurance Providers Payer name Policy type / Coverage type Covered democrat ID Effective Begin Date Effective End Date WPS Medicare Part B [id number] 2015 Unknown AARP [id number] 2015 Unknown Family history Son Diagnosis Age At Onset bladder cancer Unknown Grandfather Diagnosis Age At Onset Stroke Unknown Father Diagnosis Age At Onset Stroke Unknown Mother Diagnosis Age At Onset Tuberculosis Unknown Social History Social History Element Codes Description Effective Dates Education level Unknown College Graduate 04/23/2012 Employment Unknown 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 Marital status Unknown 04/19/[address]: 6681088 Quit over 10 years ago 40 pack/year history 04/19/[address]: 769498373 Never drinks alcohol 04/19/2011 Allergies, Adverse Reactions, Alerts Allergies, Adverse Reactions, Alerts data not found Past Medical History Illness Codes Condition Status Onset Date Resolved Date Acute recurrent maxillary sinusitis ICD-9: 461.0 ICD-10: J01.01 Active 01/15/2017 Unknown Atrophy of thyroid (acquired) ICD-9: 244.8 ICD-10: E03.4 Active 05/07/2017 Unknown Essential (primary) hypertension ICD-9: 401.1 ICD-10: I10 Active 07/05/2016 Unknown Generalized anxiety disorder ICD-9: 300.02 ICD-10: F41.1 Active 09/12/2017 Unknown Mixed hyperlipidemia ICD-9: 272.2 ICD-10: E78.2 Active 05/07/2017 Unknown Acute upper respiratory infection, unspecified ICD-9: 465.9 ICD-10: J06.9 Active 08/09/2017 Unknown Cough ICD-9: 786.2 ICD-10: R05 Active 01/15/2017 Unknown Encounter for general adult medical examination with abnormal findings ICD-9: V70.0 ICD-10: Z00.01 Active 04/12/2017 Unknown Urinary tract infection, site not specified ICD-9: 599.0 ICD-10: N39.0 Active 02/02/2017 Unknown Gastro-esophageal reflux 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 ICD-9: 530.81 ICD-10: K21.9 Active 02/02/2017 Unknown Localized edema ICD-9 : 782.3 ICD-10: R60.0 Active 05/07/2014 Unknown Allergic rhinitis due to pollen ICD-9: 477.9 ICD-10: J30.1 Active 01/04/2017 Unknown Mixed hyperlipidemia ICD-9: 272.4 ICD-10: E78.2 Active 03/08/2016 Unknown Pain in left knee ICD- 9: 719.46 ICD-10: M25.562 Active 04/16/2014 Unknown Major depressive disorder, recurrent, moderate ICD-9: 296.32 ICD-10: F33.1 Active 09/07/2016 Unknown Acute maxillary sinusitis, unspecified ICD-9: 461.0 ICD-10: J01.00 Active 08/22/2016 Unknown Essential (primary) hypertension ICD-9: 401.9 ICD-10: I10 Active 04/16/2016 Unknown Hypothyroidism, unspecified ICD-9: 244.9 ICD-10: E03.9 Active 03/08/2016 Unknown 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-9: 327.24 ICD-10: G47.34 Active 01/17/2016 Unknown Pain in right knee ICD -9: 719.46 ICD-10: M25.561 Active 04/16/2014 Unknown Bilateral primary osteoarthritis of knee ICD-9: [...] Problems Condition Codes Effective Dates Condition Status Acute recurrent maxillary sinusitis ICD-9: 461.0 ICD-10: J01.01 01/15/2017 Active Atrophy of thyroid (acquired) ICD-9: 244.8 ICD-10: E03.4 05/07/2017 Active Essential (primary) hypertension ICD-9: 401.1 ICD-10: I10 07/05/2016 Active Generalized anxiety disorder ICD-9: 300.02 ICD-10: F41.1 09/12/2017 Active Mixed hyperlipidemia ICD-9: 272.2 ICD-10: E78.2 05/07/2017 Active Acute upper respiratory infection, unspecified ICD-9: 465.9 ICD-10: J06.9 08/09/2017 Active Cough ICD-9: 786.2 ICD-10: R05 01/15/2017 Active Encounter for general adult medical examination with abnormal findings ICD-9: V70.0 ICD-10: Z00.01 04/12/2017 Active Urinary tract infection, site not specified ICD-9: 599.0 ICD-10: N39.0 02/02/2017 Active Gastro-esophageal reflux 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 ICD-9: 530.81 ICD-10: K21.9 02/02/2017 Active Localized edema ICD-9 : 782.3 ICD-10: R60.0 05/07/2014 Active Allergic rhinitis due to pollen ICD-9: 477.9 ICD-10: J30.1 01/04/2017 Active Mixed hyperlipidemia ICD-9: 272.4 ICD-10: E78.2 03/08/2016 Active Pain in left knee ICD- 9: 719.46 ICD-10: M25.562 04/16/2014 Active Major depressive disorder, recurrent, moderate ICD-9: 296.32 ICD-10: F33.1 09/07/2016 Active Acute maxillary sinusitis, unspecified ICD-9: 461.0 ICD-10: J01.00 08/22/2016 Active Essential (primary) hypertension ICD-9: 401.9 ICD-10: I10 04/16/2016 Active Hypothyroidism, unspecified ICD-9: 244.9 ICD-10: E03.9 03/08/2016 Active 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-9: 327.24 ICD-10: G47.34 01/17/2016 Active Pain in right knee ICD -9: 719.46 ICD-10: M25.561 04/16/2014 Active Bilateral primary osteoarthritis of knee ICD-9: [...] Start Date Stop Date Status Fill Instructions Diflucan 150 mg tablet RxNorm: 952035 1 Tablet(s) PO daily 09/25/2017 Active cefdinir 300 mg capsule RxNorm: 838910 1 Capsule(s) PO BID 09/25/2017 Active Cartia XT 240 mg capsule,extended release RxNorm: 986723 TAKE ONE CAPSULE BY MOUTH DAILY 09/12/2017 09/06/2018 Active prednisone 20 mg tablet RxNorm: 807948 2 Tablet(s) PO daily 12/201709/04/2017 Inactive Xanax 0.25 mg tablet RxNorm: 869732 1-2 Tablet(s) PO QHS as needed insomnia 08/28/2017 11/25/2017 Active Keflex 500 mg capsule RxNorm: 905860 1 Capsule(s) PO TID 201708/27/2017 Inactive Keflex 500 mg capsule RxNorm: 616646 1 Capsule(s) PO TID 201709/03/2017 Inactive Klor-Con 10 mEq tablet,extended release RxNorm: 148506 TAKE ONE TABLET BY MOUTH TWICE A DAY 08/23/2017 08/17/2018 Active cefdinir 300 mg capsule RxNorm: 507752 1 Capsule(s) PO BID 08/12/2017 Inactive cefdinir 300 mg capsule RxNorm: 561696 1 Capsule(s) PO BID 08/19/2017 Inactive Kenalog 40 mg/mL suspension for injection RxNorm: 2228882 1 Milliliter(s) Inj 08/09/2017 08/09/2017 Inactive ceftriaxone 500 mg solution for injection RxNorm: 2309470 Inj 08/09/2017 08/09/2017 Inactive Zithromax Z-Hebert 250 mg tablet RxNorm: 546879 1 Tablet(s) PO UD 08/09/2017 08/13/2017 Inactive Singulair 10 mg tablet RxNorm: 645002 TAKE ONE TABLET BY MOUTH EVERY DAY 08/03/2017 11/25/2018 Active Xanax 0.25 mg tablet RxNorm: 284754 1-2 Tablet(s) PO QHS as needed insomnia 07/25/2017 11/20/2017 Active Benicar 40 mg tablet RxNorm: 495245 TAKE ONE TABLET BY MOUTH DAILY 07/09/2017 04/04/2018 Active Lasix 40 mg tablet RxNorm: 600982 TAKE ONE TABLET BY MOUTH DAILY 07/09/2017 01/04/2018 Active Synthroid 50 mcg tablet RxNorm: 912445 1 Tablet(s) PO daily TAKE ONE TABLET BY MOUTH DAILY 05/21/2017 11/16/2017 Active Must be name brand Lasix 40 mg tablet RxNorm: 729038 TAKE ONE TABLET BY MOUTH DAILY 04/12/2017 07/08/2017 Inactive Zithromax Z-Hebert 250 mg tablet RxNorm: 858152 1 Tablet(s) PO UD 02/05/2017 02/09/2017 Inactive start with finished with cipro Cipro 500 mg tablet RxNorm: 208945 1 Tablet(s) PO BID 201602/07/2017 Inactive prednisone 20 mg tablet RxNorm: 241156 1 Tablet(s) PO BID 01/1501/19/2017 Inactive take 1 in the morning and 1 at noon Anusol-HC 25 mg rectal suppository RxNorm: 5541871 1 Suppository PRN INSERT 1 RECTALLY DAILY NEEDED 01/04/20172016 Inactive calcium carbonate 600 mg calcium (1,500 mg) tablet RxNorm: 236166 1 Tablet(s) PO daily 01/04/2017 No Stop Date Active Kenalog 40 mg/mL suspension for injection RxNorm: 5855289 1 Milliliter(s) Inj 01/04/2017 01/04/2017 Inactive Lasix 40 mg tablet RxNorm: 824684 TAKE ONE TABLET BY MOUTH DAILY 12/20/2016 04/11/2017 Inactive Cartia XT 240 mg capsule,extended release RxNorm: 614685 TAKE ONE CAPSULE BY MOUTH DAILY 12/20/2016 09/11/2017 Inactive meloxicam 15 mg tablet RxNorm: 640635 Tablet(s) TAKE ONE TABLET BY MOUTH ONE TIME A DAY 11/27/2016 06/24/2017 Inactive Synthroid 50 mcg tablet RxNorm: 026298 1 Tablet(s) PO daily TAKE ONE TABLET BY MOUTH DAILY 11/27/2016 05/20/2017 Inactive Must be name brand Crestor 10 mg tablet RxNorm: 384744 TAKE 1 TABLET BY MOUTH ON SUNDAY, SUNDAY, AND Sunday11/13/2016 10/14/2017 Active Lexapro 10 mg tablet RxNorm: 065360 1 Tablet(s) PO daily 201601/03/2017 Inactive please make sure that her RX for lexapro is a 10mg dose - delete the 5mg lexapro pill - this is FYI Klor-Con 10 mEq tablet,extended release RxNorm: 087768 TAKE ONE TABLET BY MOUTH TWICE A DAY 08/29/2016 02/24/2017 Inactive Kenalog 40 mg/mL suspension for injection RxNorm: 7051653 Milliliter(s) Inj 08/23/2016 08/23/2016 Inactive cefdinir 300 mg capsule RxNorm: 526579 1 Capsule(s) PO BID 08/28/2016 Inactive take probiotic while on abx Zithromax Z-Hebert 250 mg tablet RxNorm: 245828 1 Tablet(s) PO UD 08/11/2016 09/06/2016 Inactive Z PACK DIRECTED Lexapro 5 mg tablet RxNorm: 231575 TAKE ONE TABLET BY MOUTH EVERY EVENING 07/18/2016 09/06/2016 Inactive Singulair 10 mg tablet RxNorm: 035562 TAKE ONE TABLET BY MOUTH EVERY DAY 07/17/2016 08/02/2017 Inactive Benicar 40 mg tablet RxNorm: 167331 TAKE ONE TABLET BY MOUTH DAILY 07/17/2016 07/08/2017 Inactive Lexapro 10 mg tablet RxNorm: 873478 1 Tablet(s) PO daily 201509/06/2016 Inactive diltiazem ER 180 mg capsule,extended release RxNorm: 722993 TAKE ONE CAPSULE BY MOUTH DAILY 06/15/2016 07/05/2016 Inactive Lexapro 10 mg tablet RxNorm: 366031 1 Tablet(s) PO daily 201506/15/2016 Inactive gabapentin 600 mg tablet RxNorm: 352388 TAKE ONE TABLET BY MOUTH EVERY NIGHT AT BEDTIME NEEDED 04/27/2016 04/11/2017 Inactive Cartia XT 240 mg capsule,extended release RxNorm: 554792 1 Capsule(s) PO daily TAKE ONE CAPSULE BY MOUTH ONCE A DAY 04/17/2016 12/19/2016 Inactive Benicar 40 mg tablet RxNorm: 092686 1 Tablet(s) PO daily 201507/16/2016 Inactive she can do 90 days if she wants to Lexapro 5 mg tablet RxNorm: 308065 1 Tablet(s) PO QPM 201506/07/2016 Inactive Colace 100 mg capsule RxNorm: 4284461 1 Capsule(s) PO daily No Stop Date Active hydrocodone 5 mg-acetaminophen 325 mg tablet RxNorm: 606014 1/2 Tablet(s) PO QID as needed 01/18/2016 02/16/2016 Inactive Synthroid 50 mcg tablet RxNorm: 714298 1 Tablet(s) PO daily TAKE ONE TABLET BY MOUTH DAILY 01/18/2016 07/15/2016 Inactive Synthroid 50 mcg tablet RxNorm: 622272 Tablet(s) TAKE ONE TABLET BY MOUTH DAILY 12/23/2015 01/17/2016 Inactive Benicar 40 mg tablet RxNorm: 697275 1 Tablet(s) PO daily 201512/12/2015 Inactive Benicar 40 mg tablet RxNorm: 670965 1 Tablet(s) PO daily 201504/10/2016 Inactive meloxicam 15 mg tablet RxNorm: 293040 TAKE ONE TABLET BY MOUTH ONE TIME A DAY 11/12/2015 06/08/2016 Inactive meloxicam 15 mg tablet RxNorm: 777769 Tablet(s) TAKE ONE TABLET BY MOUTH ONE TIME A DAY 11/11/2015 11/11/2015 Inactive Lasix 40 mg tablet RxNorm: 553983 Tablet(s) TAKE ONE TABLET BY MOUTH EVERY DAY 10/19/2015 12/19/2016 Inactive diltiazem ER 180 mg capsule,extended release RxNorm: 610635 1 Capsule(s) daily TAKE ONE CAPSULE BY MOUTH ONCE A DAY 09/27/2015 04/16/2016 Inactive Crestor 10 mg tablet RxNorm: 174706 1 Tablet(s) PO Sun09/17/2015 07/12/2016 Inactive [SAVINGS FOR UNINSURED PATIENTS -- BIN:453356, PCN: ASPROD1, Group: [id number], ID# [id number], Process claim through [employer], for questions: [phone]. THIS IS NOT INSURANCE.] hydrocodone 5 mg-acetaminophen 325 mg tablet RxNorm: 735094 1-2 Tablet(s) PO Q6 PRN 09/09/2015 10/08/2015 Inactive Micardis 80 mg tablet RxNorm: 072129 1 Tablet(s) PO daily TAKE ONE TABLET BY MOUTH DAILY 08/23/2015 12/12/2015 Inactive Klor-Con 10 mEq tablet,extended release RxNorm: 980924 Tablet(s) TAKE ONE TABLET BY MOUTH TWICE A DAY 08/23/20152015 Inactive Synthroid 50 mcg tablet RxNorm: 282397 TAKE ONE TABLET BY MOUTH DAILY 07/06/2015 12/22/2015 Inactive meloxicam 15 mg tablet RxNorm: 616152 TAKE ONE TABLET BY MOUTH ONE TIME A DAY 06/22/2015 11/10/2015 Inactive Singulair 10 mg tablet RxNorm: 705221 TAKE ONE TABLET BY MOUTH EVERY DAY 05/18/2015 07/16/2016 Inactive Micardis 80 mg tablet RxNorm: 602899 TAKE ONE TABLET BY MOUTH DAILY 02/22/2015 05/04/2015 Inactive gabapentin 600 mg tablet RxNorm: 513594 1 Tablet(s) PO HS as needed 01/15/2015 01/09/2016 Inactive [SAVINGS FOR NON-COVERED DRUGS -- BIN:077080, PCN: ASPROD1, Group : XXXXX, ID# [id number], Questions: . THIS IS NOT INSURANCE.] diltiazem ER 180 mg capsule,extended release RxNorm: 530340 TAKE ONE CAPSULE BY MOUTH ONCE A DAY 01/07/2015 09/26/2015 Inactive meloxicam 15 mg tablet RxNorm: 767162 TAKE ONE TABLET BY MOUTH ONE TIME A DAY 11/09/2014 05/07/2015 Inactive gabapentin 600 mg tablet RxNorm: 640359 1 Tablet(s) PO HS as needed 10/13/2014 01/14/2015 Inactive [SAVINGS FOR UNINSURED PATIENTS -- BIN:472394, PCN: ASPROD1, Group: [id number], ID# [id number], Process claim through [employer], for questions: [phone]. THIS IS NOT INSURANCE.] omeprazole 20 mg tablet,delayed release RxNorm: 587496 1 Tablet(s) PO daily 10/13/2014 11/11/2014 Inactive Synthroid 50 mcg tablet RxNorm: 704051 TAKE ONE TABLET BY MOUTH EVERY DAY 10/12/2014 01/09/2015 Inactive Synthroid 50 mcg tablet RxNorm: 005360 Tablet(s) TAKE ONE TABLET BY MOUTH EVERY DAY 10/12/2014 10/11/2014 Inactive [SAVINGS FOR UNINSURED PATIENTS -- BIN:717599, PCN: ASPROD1, Group: [id number], ID# [id number], Process claim through [employer], for questions: . THIS IS NOT INSURANCE.] Lasix 40 mg tablet RxNorm: 950081 Tablet(s) PO TAKE ONE TABLET BY MOUTH TWICE A DAY FOR 3 DAYS, THEN RESUME ONE DAILY EXCEPT ON WEDNESDAYS AND FRIDAYS TAKE ONE TWICE DAILY 09/22/2014 No Stop Date Active [SAVINGS FOR UNINSURED PATIENTS -- BIN: 267419, PCN: ASPROD1, Group: [id number], ID# [id number], Process claim through [employer] , for questions: . THIS IS NOT INSURANCE.] Lasix 40 mg tablet RxNorm: 483294 TAKE ONE TABLET BY MOUTH EVERY DAY 09/22/2014 10/18/2015 Inactive Crestor 10 mg tablet RxNorm: 128426 1 Tablet(s) PO Sun08/28/2014 04/24/2015 Inactive [SAVINGS FOR UNINSURED PATIENTS -- BIN:583195, PCN: ASPROD1, Group: [id number], ID# [id number], Process claim through [employer], for questions: [phone]. THIS IS NOT INSURANCE.] Crestor 10 mg tablet RxNorm: 783852 1 Tablet(s) PO Sun08/28/2014 08/27/2014 Inactive [SAVINGS FOR UNINSURED PATIENTS -- BIN:102445, PCN: ASPROD1, Group: [id number], ID# [id number], Process claim through [employer], for questions: [phone]. THIS IS NOT INSURANCE.] Micardis 80 mg tablet RxNorm: 202024 TAKE ONE TABLET BY MOUTH EVERY DAY 08/24/2014 12/21/2014 Inactive Zithromax Z-Hebert 250 mg tablet RxNorm: 452802 Tablet(s) PO UD 08/18/2014 Inactive 2 tabs day 1, 1 tabs days 2-5 Anusol-HC 25 mg suppository RxNorm: 6242348 INSERT 1 RECTALLY DAILY NEEDED 07/13/2014 10/10/2014 Inactive Klor-Con 10 mEq tablet,extended release RxNorm: 411494 TAKE ONE TABLET BY MOUTH TWICE A DAY 06/18/2014 12/14/2014 Inactive Lomotil 2.5 mg-0.025 mg tablet RxNorm: 4429716 1 Tablet(s) PO PRN after each loose stool max 8 per day 06/15/201410/12 Inactive one after each loose bm limit 8 per day albuterol sulfate HFA 90 mcg/actuation aerosol inhaler RxNorm: 1993021 1 or2 Puff( s) INH Q4 PRN as needed 05/11/20142013 Inactive albuterol sulfate HFA 90 mcg/actuation aerosol inhaler RxNorm: 9429636 1 or2 Puff( s) INH Q4 PRN as needed 05/11/20142016 Inactive Premarin 0.625 mg/gram vaginal cream RxNorm: 068656 1/2 Gram(s) VAG every other day 05/11/2014 12/06/2014 Inactive Premarin 0.625 mg/gram vaginal cream RxNorm: 029324 1/2 Gram(s) VAG every other day 05/11/2014 05/10/2014 Inactive cefdinir 300 mg capsule RxNorm: 676316 1 Capsule(s) PO BID 06/201405/16/2014 Inactive Rocephin 500 mg solution for injection RxNorm: 393970 1 Milliliter(s) Inj 05/07/2014 05/07/2014 Inactive Singulair 10 mg tablet RxNorm: 323181 TAKE ONE TABLET BY MOUTH EVERY DAY 04/30/2014 10/12/2014 Inactive meloxicam 15 mg tablet RxNorm: 775497 1 Tablet(s) PO daily 11/08/2014 Inactive Crestor 10 mg tablet RxNorm: 180504 1 Tablet(s) PO Sun TAKE ONE TABLET BY MOUTH EVERY DAY 04/16/2014 08/27/2014 Inactive Synthroid 50 mcg tablet RxNorm: 482655 TAKE ONE TABLET BY MOUTH EVERY DAY 04/02/2014 09/28/2014 Inactive diltiazem ER 180 mg capsule,extended release RxNorm: 964380 1 Capsule(s) PO daily 01/05/2014 12/30/2014 Inactive Pennsaid 1.5 % topical drops RxNorm: 914868 Drop(s) TOP APPLY 15 - 20 DROPS TOPICALLY FOUR TIMES A DAY 12/29/2013 Inactive Rocephin 500 mg solution for injection RxNorm: 782821 Inj 12/2612/26/2013 Inactive Kenalog 40 mg/mL suspension for injection RxNorm: 7956160 Milliliter(s) Inj 12/26/2013 12/26/2013 Inactive Micardis 80 mg tablet RxNorm: 244883 Tablet(s) PO TAKE ONE TABLET BY MOUTH EVERY DAY 12/15/2013 08/23/2014 Inactive nystatin 100,000 unit/mL oral suspension RxNorm: 060956 4 Unit(s) PO QID swish and swallow 11/12/2013 12/09/2013 Inactive Kenalog 40 mg/mL suspension for injection RxNorm: 8022809 Milliliter(s) Inj 11/12/2013 11/12/2013 Inactive Lasix 40 mg tablet RxNorm: 699361 Tablet(s) PO TAKE ONE TABLET BY MOUTH TWICE A DAY FOR 3 DAYS, THEN RESUME ONE DAILY EXCEPT ON WEDNESDAYS AND FRIDAYS TAKE ONE TWICE DAILY 10/30/2013 09/21/2014 Inactive Lasix 40 mg tablet RxNorm: 423758 1 Tablet(s) PO daily 201310/29/2013 Inactive Rocephin 500 mg solution for injection RxNorm: 945614 1 Milliliter(s) Inj 10/09/2013 10/09/2013 Inactive metoprolol succinate ER 25 mg tablet,extended release 24 hr RxNorm: 418478 Tablet (s) PO TAKE ONE TABLET BY MOUTH EVERY DAY 10/02/2013 01/06/2014 Inactive metoprolol succinate ER 25 mg tablet,extended release 24 hr RxNorm: 834432 Tablet (s) PO TAKE ONE TABLET BY MOUTH EVERY DAY 08/04/2013 10/01/2013 Inactive Synthroid 50 mcg tablet RxNorm: 565784 Tablet(s) PO TAKE ONE TABLET BY MOUTH EVERY DAY 07/14/2013 04/01/2014 Inactive gabapentin 600 mg tablet RxNorm: 224201 1 Tablet(s) PO Q8 PRN 06/11/2013 06/11/2013 Inactive gabapentin 600 mg tablet RxNorm: 798095 1 Tablet(s) PO Q8 PRN 06/11/2013 03/07/2014 Inactive Neurontin 600 mg tablet RxNorm: 719686 1 Tablet(s) PO Q8 PRN 06/11/2013 Inactive Anusol-HC 25 mg suppository RxNorm: 4204132 Suppository RTL INSERT 1 RECTALLY DAILY NEEDED 04/24/2013 07/12/2014 Inactive metoprolol succinate ER 25 mg tablet,extended release 24 hr RxNorm: 184646 1 Tablet(s) PO daily 04/21/2013 08/03/2013 Inactive Premarin 0.625 mg/gram Vaginal Cream RxNorm: 448782 1/2 Gram(s) VAG every other day 04/03/2013 10/29/2013 Inactive Klor-Con 10 mEq tablet,extended release RxNorm: 946958 1 Tablet(s) PO daily 03/26/2013 03/20/2014 Inactive Klor-Con 10 mEq tablet,extended release RxNorm: 670396 1 Tablet(s) PO BID 03/24/2013 03/23/2013 Inactive Klor-Con 10 mEq tablet,extended release RxNorm: 898827 1 Tablet(s) PO BID 03/24/2013 03/25/2013 Inactive Klor-Con 10 mEq tablet,extended release RxNorm: 069558 1 Tablet(s) PO BID 03/24/2013 03/23/2013 Inactive Augmentin 875 mg-125 mg tablet RxNorm: 356456 1 Tablet(s) PO BID 03/12/2013 03/18/2013 Inactive Augmentin 875 mg-125 mg tablet RxNorm: 807187 1 Tablet(s) PO BID 03/12/2013 03/11/2013 Inactive ciprofloxacin 500 mg tablet RxNorm: 813867 1 Tablet(s) PO BID 03/11/2013 03/17/2013 Inactive ciprofloxacin 500 mg tablet RxNorm: 614032 1 Tablet(s) PO BID 03/11/2013 03/10/2013 Inactive Crestor 10 mg tablet RxNorm: 129767 1 Tablet(s) PO daily 201202/09/2013 Inactive Crestor 10 mg tablet RxNorm: 957959 Tablet(s) PO TAKE ONE TABLET BY MOUTH EVERY DAY 02/10/2013 04/15/2014 Inactive Singulair 10 mg tablet RxNorm: 662675 Tablet(s) PO TAKE ONE TABLET BY MOUTH EVERY DAY 02/04/2013 04/29/2014 Inactive Kenalog 40 mg/mL Susp for Injection RxNorm: 1511034 1 Milliliter(s) Inj 11/21/2012 11/21/2012 Inactive Pennsaid 1.5 % topical drops RxNorm: 525860 15-20 Drop(s) TOP QID 10/28/2012 11/21/2013 Inactive Micardis 80 mg tablet RxNorm: 412342 1 Tablet(s) PO daily 201210/22/2013 Inactive put this on file please, roclucero increase Pennsaid 1.5 % Topical Drops RxNorm: 408974 15-20 Drop(s) TOP QID 10/28/2012 10/27/2012 Inactive diltiazem ER 180 mg capsule,extended release RxNorm: 749781 1 Capsule(s) PO daily 10/14/2012 10/08/2013 Inactive Pyridium 200 mg tablet RxNorm: 9001503 1 Tablet(s) PO Q8 PRN 10/12/2014 Inactive Flagyl 500 mg tablet RxNorm: 491493 1 Tablet(s) PO TID 201209/10/2012 Inactive Macrobid 100 mg capsule RxNorm: 427012 1 Capsule(s) PO BID 03/201309/02/2012 Inactive Macrobid 100 mg capsule RxNorm: 441368 1 Capsule(s) PO BID 03/201309/09/2012 Inactive sulfamethoxazole-trimethoprim 800 mg-160 mg tablet RxNorm: 390514 1 Tablet(s) PO BID 08/05/2012 08/14/2012 Inactive Lasix 40 mg tablet RxNorm: 371867 1 Tablet(s) PO BID pt is taking extra lasix x 3 days, then every sunday and sunday take two lasix pills. 07/15/2012 07/09/2013 Inactive Synthroid 50 mcg tablet RxNorm: 259756 1 Tablet(s) PO daily 07/09/2013 Inactive do not substitute the generic levothyroxine for the synthroid brand name.....she needs brand name synthroid. Klor-Con 10 mEq tablet,extended release RxNorm: 963770 1 Tablet(s) PO BID 07/15/2012 03/23/2013 Inactive Singulair 10 mg tablet RxNorm: 643686 1 Tablet(s) PO daily 02/03/2013 Inactive Lexapro 10 mg tablet RxNorm: 188763 1/2 Tablet(s) PO daily 06/03/2013 Inactive ProAir HFA 90 mcg/actuation Aerosol Inhaler RxNorm: 352962 2 INH Q6 PRN 04/23/2012 01/17/2016 Inactive Lexapro 10 mg tablet RxNorm: 818158 1/2 Tablet(s) PO daily 05/09/2012 Inactive metoprolol succinate ER 50 mg tablet,extended release 24 hr RxNorm: 053327 1 Tablet(s) PO daily 04/09/2012 04/09/2012 Inactive Klor-Con 10 10 mEq tablet,extended release RxNorm: 569930 1 Tablet(s) PO daily 04/01/2012 07/14/2012 Inactive metoprolol succinate ER 50 mg tablet,extended release 24 hr RxNorm: 822266 1/2 Tablet(s) PO BID 03/11/2012 04/08/2012 Inactive clonidine 0.1 mg Tab RxNorm: 778212 1 Tablet(s) PO BID 201103/12/2012 Inactive clonidine 0.1 mg Tab RxNorm: 112474 1 Tablet(s) PO BID 201102/18/2012 Inactive Micardis 80 mg Tab RxNorm: 958688 1 Tablet(s) PO daily 201102/13/2012 Inactive Micardis 80 mg tablet RxNorm: 856936 1 Tablet(s) PO daily 201110/27/2012 Inactive Synthroid 50 mcg tablet RxNorm: 869714 1 Tablet(s) PO daily 07/14/2012 Inactive Tekturna 300 mg Tab RxNorm: 8776119 1 Tablet(s) PO daily 02/1103/12/2012 Inactive Lasix 40 mg Tab RxNorm : 895461 1 Tablet(s) PO daily 12/18/2011 12/17/2011 Inactive Lasix 40 mg tablet RxNorm: 987926 1 Tablet(s) PO daily 201107/14/2012 Inactive Anusol-HC 25 mg Suppository RxNorm: 8992030 1 Suppository RTL QDAY PRN 12/04/2011 04/19/2012 Inactive lactobacillus acidophilus Cap RxNorm: 1 Capsule(s) PO BID 11/20/2011 Inactive lactobacillus acidophilus Cap RxNorm: 1 Capsule(s) PO BID 11/20/2011 Inactive Cipro 500 mg Tab RxNorm: 716105 1 Tablet(s) PO BID 201103/12/2012 Inactive lactobacillus acidophilus Cap RxNorm: 1 Capsule(s) PO BID 11/27/2011 Inactive lactobacillus acidophilus Cap RxNorm: 1 Capsule(s) PO BID 11/20/2011 Inactive Cipro 500 mg Tab RxNorm: 828109 1 Tablet(s) PO BID 201111/20/2011 Inactive Lexapro 10 mg Tab RxNorm: 890063 1 Tablet(s) PO daily 201111/12/2011 Inactive Lexapro 10 mg tablet RxNorm: 295094 1 Tablet(s) PO daily 201104/18/2012 Inactive amlodipine 10 mg Tab RxNorm: 242903 1 Tablet(s) PO daily 201112/03/2011 Inactive amlodipine 5 mg Tab RxNorm: 268405 1 Tablet(s) PO daily 201112/04/2011 Inactive Rocephin 500 mg Solution for Injection RxNorm: 299152 Inj 08/3009/20/2011 Inactive metoprolol succinate ER 25 mg 24 hr Tab RxNorm: 095704 1 Tablet(s) PO QHS 08/30/2011 09/20/2011 Inactive Ambien 10 mg Tab RxNorm: 260828 1 Tablet(s) PO HS PRN 08/3004/19/2012 Inactive Augmentin 875 mg-125 mg Tab RxNorm: 736432 1 Tablet(s) PO BID 08/25/2011 09/20/2011 Inactive Augmentin 875 mg-125 mg Tab RxNorm: 778158 1 Tablet(s) PO BID 08/25/2011 08/24/2011 Inactive Rocephin 500 mg Solution for Injection RxNorm: 168956 Inj 08/2308/23/2011 Inactive Levaquin 500 mg Tab RxNorm: 092107 1 Tablet(s) PO daily 201008/30/2011 Inactive chlordiazepoxide-clidinium 5 mg-2.5 mg Cap RxNorm: 881525 1 Capsule(s) PO BID 07/10/2011 04/19/2012 Inactive q 12 hours prn metoprolol succinate ER 100 mg 24 hr Tab RxNorm: 578615 1 Tablet(s) PO daily 05/29/2011 03/12/2012 Inactive Synthroid 50 mcg Tab RxNorm: 339710 1 Tablet(s) PO daily 201008/12/2011 Inactive Ambien CR 12.5 mg Tab RxNorm: 090870 1 Tablet(s) PO HS PRN 05/0908/30/2011 Inactive Ambien 10 mg Tab RxNorm: 243970 1 Tablet(s) PO QHS 201006/07/2011 Inactive Nexium 40 mg Cap RxNorm: 446233 1 Capsule(s) PO daily 05/0403/12/2012 Inactive the patient had tried pepcid, otc priolosec, RX omperazole, failed them all Bactrim DS 800 mg-160 mg Tab RxNorm: 666133 1 Tablet(s) PO BID 04/19/2011 08/30/2011 Inactive triamcinolone acetonide 40 mg/mL Susp for Injection RxNorm: 7248702 1 Milliliter(s ) Inj UD 04/19/2011 04/19/2011 Inactive aspirin 81 mg Tab, Delayed Release RxNorm: 040371 1 Tablet(s) PO daily No Start Date Active Centrum Silver Ultra Women's oral RxNorm: 79274 oral No Start Date Active Probiotic & Acidophilus oral RxNorm: oral No Start Date Active Fish Oil 1,000 mg Cap RxNorm: 1 Capsule(s) PO daily No Start Date Active Tylenol Extra Strength 500 mg tablet RxNorm: 774699 1 Tablet(s) PO BID as needed for pain No Start Date Active 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 Device RxNorm: Miscellaneous QHS sleep apnea, 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 No Start Date Active Cymbalta 30 mg Cap RxNorm: 696696 1 Capsule(s) PO daily No Start Date 03/12/2012 Inactive Nexium 40 mg Cap RxNorm: 964445 Capsule(s) PO No Start Date 05/03/2011 Inactive Benadryl 25 mg capsule RxNorm: 6094347 1 Capsule(s) PO QHS No Start Date 01/03/2017 Inactive Klor-Con 10 10 mEq tablet,extended release RxNorm: 588035 1 Tablet(s) PO daily No Start Date 03/31/2012 Inactive Metamucil Oral RxNorm : Oral No Start Date 10/12/2014 Inactive amlodipine 10 mg Tab RxNorm: 347668 1 Tablet(s) PO daily No Start Date 10/08/2011 Inactive Norvasc 5 mg tablet RxNorm: 612323 1 Tablet(s) PO daily No Start Date 10/12/2014 Inactive Lasix 40 mg Tab RxNorm : 393169 1 Tablet(s) PO daily No Start Date 12/17/2011 Inactive diltiazem ER (XR/XT) 240 mg capsule,extended release, controlled RxNorm: 666052 1 Capsule(s) PO daily No Start Date Inactive Synthroid 50 mcg Tab RxNorm: 407672 1 Tablet(s) PO daily No Start Date 05/14/2011 Inactive Flagyl 500 mg tablet RxNorm: 922547 1 Tablet(s) PO No Start Date 09/03/2012 Inactive one after each loose bm limit 8 per day Boniva 150 mg Tab RxNorm: 421360 1 Tablet(s) PO UD No Start Date 08/30/2011 Inactive monthly Singulair 10 mg tablet RxNorm: 779308 1 Tablet(s) PO daily No Start Date 06/11/2012 Inactive folic acid Oral RxNorm : Oral No Start Date 03/12/2012 Inactive potassium chloride ER 10 mEq tablet,extended release RxNorm: 544330 1 Tablet(s) PO daily No Start Date 01/03/2017 Inactive Librium 10 mg Cap RxNorm: 234830 Capsule(s) PO UD No Start Date 03/12/2012 Inactive q 12 hours prn Crestor 10 mg tablet RxNorm: 673635 1 Tablet(s) PO daily No Start Date 02/09/2013 Inactive multivitamin Cap RxNorm: 1 Capsule(s) PO daily No Start Date 01/17/2016 Inactive metoprolol succinate ER 100 mg 24 hr Tab RxNorm: 920958 1 Tablet(s) PO daily No Start Date 05/28/2011 Inactive Zithromax Z-Hebert 250 mg tablet RxNorm: 657162 Tablet(s) PO UD No Start Date 12/22/2015 Inactive diltiazem ER 180 mg capsule,extended release RxNorm: 918478 1 Capsule(s) PO daily No Start Date 10/13/2012 Inactive Tekturna 300 mg Tab RxNorm: 7641833 1 Tablet(s) PO daily samples No Start Date 02/11/2012 Inactive Xanax 0.25 mg tablet RxNorm: 092222 1-2 Tablet(s) PO QHS as needed insomnia No Start Date 07/24/2017 Inactive ProAir HFA 90 mcg/actuation Aerosol Inhaler RxNorm: 158827 2 INH Q6 PRN No Start Date 04/22/2012 Inactive chlordiazepoxide-clidinium 5 mg-2.5 mg Cap RxNorm: 586581 1 Capsule(s) PO PRN No Start Date 07/09/2011 Inactive q 12 hours prn Butrans 5 mcg/hour Transderm Patch RxNorm: 132001 1 Patch TD weekly No Start Date 05/26/2012 Inactive Lactobacillus acidophilus tablet RxNorm: 4 Tablet(s) PO daily No Start Date 01/03/2017 Inactive Librax (with clidinium) 5 mg-2.5 mg capsule RxNorm: 289535 1 Capsule(s) PO BID No Start Date 04/18/2012 Inactive Nexium 40 mg capsule,delayed release RxNorm: 658983 Capsule(s) PO PRN No Start Date 10/12/2014 Inactive Premarin 0.625 mg/gram Vaginal Cream RxNorm: 941871 Gram(s) VAG No Start Date 03/12/2012 Inactive three times a week, small amt to vaginal tissuesample given metoprolol succinate ER 50 mg tablet,extended release 24 hr RxNorm: 576891 1 Tablet(s) PO daily No Start Date 2011 Inactive Zithromax Z-Hebert 250 mg tablet RxNorm: 089936 Tablet(s) PO UD No Start Date 08/13/2014 Inactive albuterol sulfate HFA 90 mcg/actuation aerosol inhaler RxNorm: 4907314 1 or2 Puff( s) INH Q4 PRN No Start Date 05/10/2014 Inactive Xanax 0.25 mg Tab RxNorm: 078002 1/2-1 Tablet(s) PO Q8 PRN No Start Date 03/12/2012 Inactive metoprolol succinate ER 25 mg tablet,extended release 24 hr RxNorm: 547035 1 Tablet(s) PO daily No Start Date 2012 Inactive Zithromax Z-Hebert 250 mg tablet RxNorm: 341864 1 Tablet(s) PO UD No Start Date 08/10/2016 Inactive Z PACK DIRECTED calcium carbonate 600 mg (1,500 mg) Tab RxNorm: 528449 1 Tablet(s) PO BID No Start Date 01/03/2017 Inactive albuterol sulfate HFA 90 mcg/Actuation Aerosol Inhaler RxNorm: 632261 1-2 Puff(s) INH Q4 PRN No Start Date 03/11/2012 Inactive Vitamin D3 2,000 unit capsule RxNorm: 883857 1 Capsule(s) PO daily No Start Date 10/12/2014 Inactive Colace 100 mg Cap RxNorm: 8524616 1 Capsule(s) PO BID No Start Date 01/17/2016 Inactive Neurontin 600 mg tablet RxNorm: 095861 1 Tablet(s) PO Q8 PRN No Start Date 06/09/2013 Inactive Lomotil 2.5 mg-0.025 mg tablet RxNorm: 3216238 1 Tablet(s) PO No Start Date 06/14/2014 Inactive one after each loose bm limit 8 per day Micardis 80 mg Tab RxNorm: 392862 1 Tablet(s) PO daily No Start Date 12/03/2011 Inactive Pyridium 200 mg tablet RxNorm: 0383733 1 Tablet(s) PO Q8 PRN No Start Date 09/10/2012 Inactive Medication Administered Medication Codes Instructions Start Date Status Kenalog 40 mg/mL suspension for injection RxNorm: 2648165 1Milliliter 08/09/2017 No longer Active ceftriaxone 500 mg solution for injection RxNorm: 4222518 08/09/2017 No longer Active Kenalog 40 mg/mL suspension for injection RxNorm: 1358786 1Milliliter 01/04/2017 No longer Active Kenalog 40 mg/mL suspension for injection RxNorm: 5469917 Milliliter 08/23/2016 No longer Active Rocephin 500 mg solution for injection RxNorm: 540700 1Milliliter 05/07/2014 No longer Active Kenalog 40 mg/mL suspension for injection RxNorm: 7721270 Milliliter 12/26/2013 No longer Active Rocephin 500 mg solution for injection RxNorm: 137304 12/26/2013 No longer Active Kenalog 40 mg/mL suspension for injection RxNorm: 1167292 Milliliter 11/12/2013 No longer Active Rocephin 500 mg solution for injection RxNorm: 027817 1Milliliter 10/09/2013 No longer Active Kenalog 40 mg/mL Susp for Injection RxNorm: 4708891 1Milliliter 11/21/2012 No longer Active Rocephin 500 mg Solution for Injection RxNorm: 301069 08/23/2011 No longer Active triamcinolone acetonide 40 mg/mL Susp for Injection RxNorm: 0835061 1MilliliterUD 04/19/2011 No longer Active Immunizations Vaccine Codes Date Status Influenza CVX: 141 06/16/2016 completed Pneumococcal CVX: 133 06/16/2016 completed PPD Unknown 08/07/2014 completed Influenza CVX: 141 05/20/2014 completed Influenza CVX: 141 06/11/2013 completed zostavax CVX: 121 05/08/2013 completed Influenza CVX: 141 05/03/2012 completed Influenza Unknown 06/10/2010 completed Assessments Condition Codes Effective Dates 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 ICD-9: 244.8 09/12/2017 Acute recurrent maxillary sinusitis ICD-10: J01.01 ICD-9: 461.0 09/12/2017 Essential (primary) hypertension ICD-10: I10 ICD-9: 401.1 09/12/2017 Mixed hyperlipidemia ICD-10: E78.2 ICD-9: 272.2 09/12/2017 Generalized anxiety disorder ICD-10: F41.1 ICD-9: 300.02 09/12/2017 Cough ICD-10: R05 ICD-9: 786.2 08/09/2017 Acute upper respiratory infection, unspecified ICD-10: J06.9 ICD-9: 465.9 08/09/2017 Encounter for general adult medical examination with abnormal findings ICD-10: Z00.01 ICD-9: V70.0 04/12/2017 Urinary tract infection, site not specified ICD-10: N39.0 ICD-9: 599.0 02/05/2017 Gastro-esophageal reflux 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 ICD-10 : K21.9 ICD-9: 530.81 02/02/2017 Localized edema ICD-10: R60.0 ICD-9: 782.3 02/02/2017 Pain in left knee ICD-10: M25.562 ICD-9: 719.46 01/04/2017 Mixed hyperlipidemia ICD-10: E78.2 ICD-9: 272.4 01/04/2017 Allergic rhinitis due to pollen ICD-10: J30.1 ICD-9: 477.9 01/04/2017 Major depressive disorder, recurrent, moderate ICD-10: F33.1 ICD-9: 296.32 09/07/2016 Acute maxillary sinusitis, unspecified ICD-10: J01.00 ICD-9: 461.0 08/23/2016 Essential (primary) hypertension ICD-10: I10 ICD-9: 401.9 04/17/2016 Hypothyroidism, unspecified ICD-10: E03.9 ICD-9: 244.9 03/09/2016 Pain in right knee ICD-10: M25.561 ICD-9: 719.46 01/18/2016 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-10: [...] Reason For Visit Effective Dates Notes hypertension 09/12/2017 cough 08/09/2017 hypertension 05/07/2017 Annual Medicare Wellness [...] Observation Code Item Item Code Result Date Tsh Ord6 hTSH II 1.56 uIU/mL 03/09/2016 [...] 91.8 fl 03/09/2016 Cbc With Differential Ord2 [place]% 8.5 % 03/09/2016 Cbc With Differential Ord2 [...] 2.38 K/ul 03/09/2016 Cbc With Differential Ord2 [place] ABS# 0.8 K/ul 03/09/2016 Cbc With Differential Ord2 Eos ABS# 0.2 K/ul 03/09/2016 Cbc With Differential Ord2 Baso ABS# 0.1 K/ul 03/09/2016 Comp Metabolic Zmz280 NA 138 mEq/L 03/09/2016 Comp Metabolic Qbr296 K 4.5 mEq/L 03/09/2016 Comp Metabolic Oav134 CL 100 mEq/L 03/09/2016 Comp Metabolic Rsh888 CO2 33.0 mEq/L 03/09/2016 Comp Metabolic Buo977 ANION GAP 10 03/09/2016 Comp Metabolic Kwq908 GLUCOSE 94 mg/dL 03/09/2016 Comp Metabolic Wwl964 Creat 0.6 mg/dL 03/09/2016 Comp Metabolic Fky105 eGFR 106 ml/min/1.73m2 03/09/2016 Comp Metabolic Pkv336 BUN 10 mg/dL 03/09/2016 Comp Metabolic Dpw094 B/C Ratio 17.2 Ratio 03/09/2016 Comp Metabolic Avg873 CALCIUM 9.2 mg/dL 03/09/2016 Comp Metabolic Vlh490 ALK PHOS 64 U/L 03/09/2016 Comp Metabolic Hnm136 AST(SGOT) 20 U/L 03/09/2016 Comp Metabolic Cmu199 ALT(SGPT) 11 U/L 03/09/2016 Comp Metabolic Kar557 BILI T 0.9 mg/dL 03/09/2016 Comp Metabolic Ipt986 ALBUMIN 4.0 g/dL 03/09/2016 Comp Metabolic Hlf570 TPRO 6.1 g/dL 03/09/2016 Comp Metabolic Lwy479 GLOB 2.1 g/dL 03/09/2016 Comp Metabolic Dzq522 A/G Ratio 1.9 Ratio 03/09/2016 Comp Metabolic Wef045 Osmo 274 mOsmo 03/09/2016 Free T4 Vqw403 FREE T4 0.90 ng/dL 03/09/2016 Lipid Ord30 [...] hTSH II 3.25 uIU/mL 09/07/2015 Free T4 Hsv873 FREE T4 0.79 ng/dL 09/07/2015 Comp Metabolic Ikn343 NA 137 mEq/L 09/07/2015 Comp Metabolic Htu908 K 4.0 mEq/L 09/07/2015 Comp Metabolic Xmz779 CL 98 mEq/L 09/07/2015 Comp Metabolic Jbl693 CO2 30.0 mEq/L 09/07/2015 Comp Metabolic Dfe666 ANION GAP 13 09/07/2015 Comp Metabolic Njn196 GLUCOSE 101 mg/dL 09/07/2015 Comp Metabolic Qgp316 Creat 0.6 mg/dL 09/07/2015 Comp Metabolic Aji756 eGFR 111 ml/min/1.73m2 09/07/2015 Comp Metabolic Pvh297 BUN 16 mg/dL 09/07/2015 Comp Metabolic Ywy224 B/C Ratio 28.6 Ratio 09/07/2015 Comp Metabolic Tjv504 CALCIUM 9.4 mg/dL 09/07/2015 Comp Metabolic Jza943 ALK PHOS 68 U/L 09/07/2015 Comp Metabolic Pmb841 AST(SGOT) 16 U/L 09/07/2015 Comp Metabolic Lkr276 ALT(SGPT) 12 U/L 09/07/2015 Comp Metabolic Tis819 BILI T 0.9 mg/dL 09/07/2015 Comp Metabolic Yih667 ALBUMIN 4.1 g/dL 09/07/2015 Comp Metabolic Gvq733 TPRO 6.5 g/dL 09/07/2015 Comp Metabolic Wqc334 GLOB 2.4 g/dL 09/07/2015 Comp Metabolic Lan146 A/G Ratio 1.7 Ratio 09/07/2015 Comp Metabolic Lol125 Osmo 275 mOsmo 09/07/2015 Cbc With Differential [...] Differential Ord2 RDW 14.4 % 09/07/2015 TSH 3087827 TSH 0.920 uIU/ML 08/28/2014 CBC 1569328 WBC 12.5 10e9/L 08/28/2014 CBC 6068944 RBC 3.44 10e12/L 08/28/2014 CBC 4625653 HGB 10.3 g/dL 08/28/2014 CBC 0652892 HCT DET 33.9 % 08/28/2014 CBC 1985598 MCV 98.5 fL 08/28/2014 CBC 6492262 MCH 29.9 pg 08/28/2014 CBC 4871834 MCHC 30.4 g/dL 08/28/2014 CBC 7816888 PLT 412 10e9/L 08/28/2014 CBC 0193884 MPV 10.2 fL 08/28/2014 CBC 2499561 NNEKA % 68.5 % 08/28/2014 CBC 4777623 LY % 20.8 % 08/28/2014 CBC 4465997 MON % 9.9 % 08/28/2014 CBC 7417293 EOS % 0.6 % 08/28/2014 CBC 8968149 BASO % 0.2 % 08/28/2014 CBC 9109883 RDW 15.8 % 08/28/2014 CBC 2054780 ABS NNEKA 8.56 10e9/L 08/28/2014 CBC 1062241 ABS LYMPH 2.60 10e9/L 08/28/2014 CBC 1120957 ABS MONO 1.24 10e9/L 08/28/2014 CBC 3341811 ABS EOS 0.08 10e9/L 08/28/2014 CBC 7354089 ABS BASO 0.03 10e9/L 08/28/2014 CBC 3102497 RDW-SD 55.4 fL 08/28/2014 GFR CALC 8744956 GFR AA >60 ML/MIN 08/28/2014 GFR CALC 4353422 GFR NON-AA >60 ML/MIN 08/28/2014 LIPID GRP HDL TEST 69 MG/DL 08/28/2014 LIPID GRP TRIG 158 MG/DL 08/28/2014 LIPID GRP TEST LDL 96 MG/DL 08/28/2014 LIPID GRP CHOL 197 MG/DL 08/28/2014 LIPID GRP RCHOL/HDL 2.86 RATIO 08/28/2014 LIPID GRP NON-HDL CH 128 MG/DL 08/28/2014 CHEM 14 6138531 AST 14 U/L 08/28/2014 CHEM 14 5682375 ALT 13 IU/L 08/28/2014 CHEM 14 1013960 BUN 15 MG/DL 08/28/2014 CHEM 14 7428471 ALBUMIN 4.2 GM/DL 08/28/2014 CHEM 14 4516045 CHLORIDE 98 MMOL/L 08/28/2014 CHEM 14 0954425 BILI TOT 1.2 MG/DL 08/28/2014 CHEM 14 8169930 ALK PHOS 68 U/L 08/28/2014 CHEM 14 7248108 SODIUM 137 MMOL/L 08/28/2014 CHEM 14 4187791 CREATININE 0.68 MG/DL 08/28/2014 CHEM 14 9327310 CALCIUM 9.1 MG/DL 08/28/2014 CHEM 14 9871407 POTASSIUM 3.7 MMOL/L 08/28/2014 CHEM 14 9708529 PROT TOT 6.2 GM/DL 08/28/2014 CHEM 14 8997431 GLUCOSE 91 MG/DL 08/28/2014 CHEM 14 6843514 BICARB 31 MMOL/L 08/28/2014 CHEM 14 8922310 ANION GAP 8 MEQ/L 08/28/2014 FREE T4 0000343 FREE T4 1.44 NG/DL 08/28/2014 LIPID GRP HDL TEST 73 MG/DL 04/16/2014 LIPID GRP TRIG 131 MG/DL 04/16/2014 LIPID GRP TEST LDL 99 MG/DL 04/16/2014 LIPID GRP CHOL 198 MG/DL 04/16/2014 LIPID GRP RCHOL/HDL 2.71 RATIO 04/16/2014 LIPID GRP NON-HDL CH 125 MG/DL 04/16/2014 CHEM 14 3959869 AST 17 U/L 04/14/2014 CHEM 14 3205780 ALT 17 IU/L 04/14/2014 CHEM 14 6040806 BUN 15 MG/DL 04/14/2014 CHEM 14 1207344 ALBUMIN 4.3 GM/DL 04/14/2014 CHEM 14 9889199 CHLORIDE 96 MMOL/L 04/14/2014 CHEM 14 1042018 BILI TOT 0.9 MG/DL 04/14/2014 CHEM 14 7680591 ALK PHOS 65 U/L 04/14/2014 CHEM 14 4805514 SODIUM 135 MMOL/L 04/14/2014 CHEM 14 9839652 CREATININE 0.69 MG/DL 04/14/2014 CHEM 14 7924141 CALCIUM 9.5 MG/DL 04/14/2014 CHEM 14 3642352 POTASSIUM 4.1 MMOL/L 04/14/2014 CHEM 14 1103687 PROT TOT 6.6 GM/DL 04/14/2014 CHEM 14 9840319 GLUCOSE 104 MG/DL 04/14/2014 CHEM 14 0954049 BICARB 34 MMOL/L 04/14/2014 CHEM 14 9836923 ANION GAP 5 MEQ/L 04/14/2014 A1C HPLC 9456387 A1C HPLC 15884-4 5.0 % 04/14/2014 TSH 4411999 TSH 2.140 uIU/ML 04/14/2014 FREE T4 3575380 FREE T4 1.56 NG/DL 04/14/2014 GFR CALC 4041821 GFR AA >60 ML/MIN 04/14/2014 GFR CALC 1024919 GFR NON-AA >60 ML/MIN 04/14/2014 CBC 4768470 WBC 12.8 10e9/L 04/14/2014 CBC 9652244 RBC 4.44 10e12/L 04/14/2014 CBC 6505470 HGB 13.2 g/dL 04/14/2014 CBC 5353711 HCT DET 41.4 % 04/14/2014 CBC 4878071 MCV 93.2 fL 04/14/2014 CBC 8730485 MCH 29.7 pg 04/14/2014 CBC 9749050 MCHC 31.9 g/dL 04/14/2014 CBC 8590497 PLT 383 10e9/L 04/14/2014 CBC 2403457 MPV 10.1 fL 04/14/2014 CBC 5047899 NNEKA % 65.5 % 04/14/2014 CBC 6991844 LY % 23.0 % 04/14/2014 CBC 3539774 MON % 9.9 % 04/14/2014 CBC 0287397 EOS % 1.3 % 04/14/2014 CBC 2490832 BASO % 0.3 % 04/14/2014 CBC 6353385 RDW 13.7 % 04/14/2014 CBC 2987410 ABS NNEKA 8.38 10e9/L 04/14/2014 CBC 6878304 ABS LYMPH 2.94 10e9/L 04/14/2014 CBC 9473774 ABS MONO 1.27 10e9/L 04/14/2014 CBC 7632196 ABS EOS 0.17 10e9/L 04/14/2014 CBC 6949358 ABS BASO 0.04 10e9/L 04/14/2014 CBC 3396297 RDW-SD 45.9 fL 04/14/2014 A1C HPLC 7557796 A1C HPLC 82385-9 4.9 % 11/13/2013 CHEM 14 6077553 AST 15 U/L 11/12/2013 CHEM 14 9448802 ALT 14 IU/L 11/12/2013 CHEM 14 8918492 BUN 14 MG/DL 11/12/2013 CHEM 14 3333345 ALBUMIN 4.3 GM/DL 11/12/2013 CHEM 14 8756385 CHLORIDE 101 MMOL/L 11/12/2013 CHEM 14 1261540 BILI TOT 0.9 MG/DL 11/12/2013 CHEM 14 3171022 ALK PHOS 67 U/L 11/12/2013 CHEM 14 5009735 SODIUM 139 MMOL/L 11/12/2013 CHEM 14 5347170 CREATININE 0.67 MG/DL 11/12/2013 CHEM 14 0134479 CALCIUM 9.5 MG/DL 11/12/2013 CHEM 14 2038269 POTASSIUM 4.1 MMOL/L 11/12/2013 CHEM 14 2476538 PROT TOT 6.5 GM/DL 11/12/2013 CHEM 14 3582918 GLUCOSE 102 MG/DL 11/12/2013 CHEM 14 7677269 BICARB 30 MMOL/L 11/12/2013 CHEM 14 4254780 ANION GAP 8 MEQ/L 11/12/2013 GFR CALC 3209644 GFR AA >60 ML/MIN 11/12/2013 GFR CALC 3767450 GFR NON-AA >60 ML/MIN 11/12/2013 TSH 2070396 TSH 2.445 uIU/ML 11/12/2013 FREE T4 7318663 FREE T4 1.09 NG/DL 11/12/2013 CBC 3608418 WBC 7.6 10e9/L 11/12/2013 CBC 7473621 RBC 4.42 10e12/L 11/12/2013 CBC 4939067 HGB 13.1 g/dL 11/12/2013 CBC 0920222 HCT DET 41.2 % 11/12/2013 CBC 2195450 MCV 93.2 fL 11/12/2013 CBC 9050505 MCH 29.6 pg 11/12/2013 CBC 1761210 MCHC 31.8 g/dL 11/12/2013 CBC 3186233 PLT 314 10e9/L 11/12/2013 CBC 2751943 MPV 10.4 fL 11/12/2013 CBC 4177690 NNEKA % 59.8 % 11/12/2013 CBC 0746116 LY % 28.1 % 11/12/2013 CBC 0401016 MON % 9.5 % 11/12/2013 CBC 5408338 EOS % 1.8 % 11/12/2013 CBC 0877813 BASO % 0.8 % 11/12/2013 CBC 8253837 RDW 13.8 % 11/12/2013 CBC 8321825 ABS NNEKA 4.54 10e9/L 11/12/2013 CBC 6611685 ABS LYMPH 2.14 10e9/L 11/12/2013 CBC 2584081 ABS MONO 0.72 10e9/L 11/12/2013 CBC 6404540 ABS EOS 0.14 10e9/L 11/12/2013 CBC 8620686 ABS BASO 0.06 10e9/L 11/12/2013 CBC 3005607 RDW-SD 46.0 fL 11/12/2013 LIPID GRP HDL TEST 66 MG/DL 11/12/2013 LIPID GRP TRIG 130 MG/DL 11/12/2013 LIPID GRP TEST LDL 108 MG/DL 11/12/2013 LIPID GRP CHOL 200 MG/DL 11/12/2013 LIPID GRP RCHOL/HDL 3.03 RATIO 11/12/2013 HS ENE ZOS 0847667 HS ENE ZOS IMMUNE 04/04/2013 A1C 9975675 A1C HPLC 64926-3 5.2 % 04/03/2013 GFR CALC 5598415 GFR AA >60 ML/MIN 03/31/2013 GFR CALC 2317963 GFR NON-AA >60 ML/MIN 03/31/2013 TSH 0174094 TSH 2.689 uIU/ML 03/31/2013 LIPID GRP HDL TEST 63 MG/DL 03/31/2013 LIPID GRP TRIG 157 MG/DL 03/31/2013 LIPID GRP TEST LDL 98 MG/DL 03/31/2013 LIPID GRP CHOL 192 MG/DL 03/31/2013 LIPID GRP RCHOL/HDL 3.05 RATIO 03/31/2013 FREE T4 0897848 FREE T4 1.19 NG/DL 03/31/2013 CHEM 14 3448200 AST 16 U/L 03/31/2013 CHEM 14 8853918 ALT 12 IU/L 03/31/2013 CHEM 14 2757227 BUN 17 MG/DL 03/31/2013 CHEM 14 9113253 ALBUMIN 4.5 GM/DL 03/31/2013 CHEM 14 1136257 CHLORIDE 98 MMOL/L 03/31/2013 CHEM 14 9330957 BILI TOT 0.7 MG/DL 03/31/2013 CHEM 14 7373773 ALK PHOS 53 U/L 03/31/2013 CHEM 14 9665202 SODIUM 137 MMOL/L 03/31/2013 CHEM 14 4937604 CREATININE 0.66 MG/DL 03/31/2013 CHEM 14 2278340 CALCIUM 9.6 MG/DL 03/31/2013 CHEM 14 3348533 POTASSIUM 4.2 MMOL/L 03/31/2013 CHEM 14 1927657 PROT TOT 6.7 GM/DL 03/31/2013 CHEM 14 4664815 GLUCOSE 101 MG/DL 03/31/2013 CHEM 14 0349751 BICARB 33 MMOL/L 03/31/2013 CHEM 14 4340339 ANION GAP 6 MEQ/L 03/31/2013 CBC 6175241 WBC 7.5 10e9/L 03/31/2013 CBC 2353040 RBC 4.39 10e12/L 03/31/2013 CBC 0997408 HGB 13.0 g/dL 03/31/2013 CBC 0893567 HCT DET 40.2 % 03/31/2013 CBC 1573734 MCV 91.6 fL 03/31/2013 CBC 0860617 MCH 29.6 pg 03/31/2013 CBC 1534190 MCHC 32.3 g/dL 03/31/2013 CBC 9136067 PLT 305 10e9/L 03/31/2013 CBC 2503147 MPV 10.4 fL 03/31/2013 CBC 6213126 NNEKA % 56.8 % 03/31/2013 CBC 3537029 LY % 30.3 % 03/31/2013 CBC 7362917 MON % 9.8 % 03/31/2013 CBC 1835419 EOS % 2.3 % 03/31/2013 CBC 6210341 BASO % 0.8 % 03/31/2013 CBC 7704571 RDW 13.2 % 03/31/2013 CBC 2260112 ABS NNEKA 4.26 10e9/L 03/31/2013 CBC 9396039 ABS LYMPH 2.27 10e9/L 03/31/2013 CBC 6932709 ABS MONO 0.74 10e9/L 03/31/2013 CBC 6814053 ABS EOS 0.17 10e9/L 03/31/2013 CBC 9095793 ABS BASO 0.06 10e9/L 03/31/2013 CBC 5180731 RDW-SD 43.2 fL 03/31/2013 LIPID GRP HDL TEST 49 MG/DL 09/11/2012 LIPID GRP TRIG 134 MG/DL 09/11/2012 LIPID GRP TEST LDL 81 MG/DL 09/11/2012 LIPID GRP CHOL 157 MG/DL 09/11/2012 LIPID GRP RCHOL/HDL 3.20 RATIO 09/11/2012 TSH 3363354 TSH 2.118 uIU/ML 09/11/2012 CBC 8979832 WBC 7.5 10e9/L 09/11/2012 CBC 2736279 RBC 3.99 10e12/L 09/11/2012 CBC 8105660 HGB 11.7 g/dL 09/11/2012 CBC 2011390 HCT DET 37.7 % 09/11/2012 CBC 8644286 MCV 94.5 fL 09/11/2012 CBC 1261776 MCH 29.3 pg 09/11/2012 CBC 4888289 MCHC 31.0 g/dL 09/11/2012 CBC 1521296 PLT 384 10e9/L 09/11/2012 CBC 3665947 MPV 11.0 fL 09/11/2012 CBC 3887423 NNEKA % 51.7 % 09/11/2012 CBC 2310858 LY % 35.2 % 09/11/2012 CBC 1033800 MON % 10.4 % 09/11/2012 CBC 4749320 EOS % 2.3 % 09/11/2012 CBC 5873709 BASO % 0.4 % 09/11/2012 CBC 9857729 RDW 14.2 % 09/11/2012 CBC 9340384 ABS NNEKA 3.88 10e9/L 09/11/2012 CBC 7421564 ABS LYMPH 2.64 10e9/L 09/11/2012 CBC 1431524 ABS MONO 0.78 10e9/L 09/11/2012 CBC 3942603 ABS EOS 0.17 10e9/L 09/11/2012 CBC 6777791 ABS BASO 0.03 10e9/L 09/11/2012 CBC 5195130 RDW-SD 47.1 fL 09/11/2012 CHEM 14 9800606 AST 16 U/L 09/11/2012 CHEM 14 2942212 ALT 15 IU/L 09/11/2012 CHEM 14 8756101 BUN 11 MG/DL 09/11/2012 CHEM 14 9437944 ALBUMIN 4.2 GM/DL 09/11/2012 CHEM 14 7648301 CHLORIDE 101 MMOL/L 09/11/2012 CHEM 14 4213954 BILI TOT 0.8 MG/DL 09/11/2012 CHEM 14 8946656 ALK PHOS 57 U/L 09/11/2012 CHEM 14 7703296 SODIUM 141 MMOL/L 09/11/2012 CHEM 14 7747686 CREATININE 0.62 MG/DL 09/11/2012 CHEM 14 5736195 CALCIUM 9.5 MG/DL 09/11/2012 CHEM 14 4212179 POTASSIUM 4.7 MMOL/L 09/11/2012 CHEM 14 4323365 PROT TOT 6.6 GM/DL 09/11/2012 CHEM 14 9735079 GLUCOSE 90 MG/DL 09/11/2012 CHEM 14 1705050 BICARB 32 MMOL/L 09/11/2012 CHEM 14 4056934 ANION GAP 8 MEQ/L 09/11/2012 A1C HPLC 8449380 A1C HPLC 81491-5 4.5 % 09/11/2012 GFR CALC 1312734 GFR AA >60 ML/MIN 09/11/2012 GFR CALC 1664340 GFR NON-AA >60 ML/MIN 09/11/2012 FREE T4 7146436 FREE T4 1.30 NG/DL 09/11/2012 BMP 4200682 GLUCOSE 93 MG/DL 04/16/2012 BMP 2933007 CREATININE 0.64 MG/DL 04/16/2012 BMP 8083002 BUN 12 MG/DL 04/16/2012 BMP 8617853 SODIUM 139 MMOL/L 04/16/2012 BMP 7600998 POTASSIUM 4.1 MMOL/L 04/16/2012 BMP 9951662 CHLORIDE 99 MMOL/L 04/16/2012 BMP 8112483 BICARB 32 MMOL/L 04/16/2012 BMP 3352648 ANION GAP 8 MEQ/L 04/16/2012 BMP 4373143 CALCIUM 9.8 MG/DL 04/16/2012 CBC 2985588 WBC 8.5 10e9/L 04/16/2012 CBC 0799322 RBC 3.98 10e12/L 04/16/2012 CBC 5811036 HGB 11.5 g/dL 04/16/2012 CBC 3674512 HCT DET 36.7 % 04/16/2012 CBC 0788988 MCV 92.2 fL 04/16/2012 CBC 4888309 MCH 28.9 pg 04/16/2012 CBC 8496320 MCHC 31.3 g/dL 04/16/2012 CBC 8457904 PLT 321 10e9/L 04/16/2012 CBC 6392934 MPV 10.2 fL 04/16/2012 CBC 8154703 NNEKA % 64.3 % 04/16/2012 CBC 1629055 LY % 24.3 % 04/16/2012 CBC 0345564 MON % 9.0 % 04/16/2012 CBC 5203677 EOS % 1.9 % 04/16/2012 CBC 2592246 BASO % 0.5 % 04/16/2012 CBC 6064630 RDW 13.7 % 04/16/2012 CBC 6776360 ABS NNEKA 5.47 10e9/L 04/16/2012 CBC 5815023 ABS LYMPH 2.07 10e9/L 04/16/2012 CBC 5131761 ABS MONO 0.77 10e9/L 04/16/2012 CBC 6271871 ABS EOS 0.16 10e9/L 04/16/2012 CBC 5315095 ABS BASO 0.04 10e9/L 04/16/2012 CBC 8503918 RDW-SD 44.6 fL 04/16/2012 GFR CALC 3488303 GFR AA >60 ML/MIN 04/16/2012 GFR CALC 0778740 GFR NON-AA >60 ML/MIN 04/16/2012 URINALYSIS NONAUTO W/O SCOPE 76900 Specific [place] 1.015 DateTime(Free Text in Aprima) URINALYSIS NONAUTO W/O SCOPE 48227 PH 6.0 DateTime(Free Text in Aprima) URINALYSIS NONAUTO W/O SCOPE 24938 GLUCOSE neg DateTime( Free Text in Aprima) URINALYSIS NONAUTO W/O SCOPE 69446 Protein neg DateTime( Free Text in Apr[employer]) URINALYSIS NONAUTO W/O SCOPE 12509 Blood 1+ DateTime(Free Text in Aprima) URINALYSIS NONAUTO W/O SCOPE 33668 Bilirubin neg DateTime(Free Text in Aprima) URINALYSIS NONAUTO W/O SCOPE 05070 Ketones neg DateTime( Free Text in Aprima) URINALYSIS NONAUTO W/O SCOPE 34589 Urobilinogen neg DateTime(Free Text in Aprima) URINALYSIS NONAUTO W/O SCOPE 44882 Nitrite positive DateTime(Free Text in Aprima) URINALYSIS NONAUTO W/O SCOPE 73602 Leukocytes 1+ DateTime(Free Text in Aprima) UA 10927 Specific [place] 1.015 DateTime(Free Text in Aprima ) UA 40640 PH 5 DateTime(Free Text in Aprima) UA 81032 GLUCOSE neg DateTime(Free Text in Aprima) UA 19835 Protein neg DateTime(Free Text in Aprima) UA 52162 Blood neg DateTime(Free Text in Aprima) UA 03410 Bilirubin neg DateTime(Free Text in Aprima) UA 65146 Ketones neg DateTime(Free Text in Aprima) UA 62579 Urobilinogen neg DateTime(Free Text in Aprima) UA 97608 Nitrite neg DateTime(Free Text in Aprima) UA 82461 Leukocytes neg DateTime(Free Text in Aprima) URINALYSIS NONAUTO W/O SCOPE 13509 Specific [place] 1.010 DateTime(Free Text in Aprima) URINALYSIS NONAUTO W/O SCOPE 70765 PH 5.0 DateTime(Free Text in Aprima) URINALYSIS NONAUTO W/O SCOPE 53589 GLUCOSE NEG DateTime( Free Text in Apr[employer]) URINALYSIS NONAUTO W/O SCOPE 40920 Protein NEG DateTime( Free Text in Apr[employer]) URINALYSIS NONAUTO W/O SCOPE 87822 Blood NEG DateTime(Free Text in Aprima) URINALYSIS NONAUTO W/O SCOPE 90790 Bilirubin NEG DateTime(Free Text in Apr[employer]) URINALYSIS NONAUTO W/O SCOPE 95965 Ketones NEG DateTime( Free Text in Aprima) URINALYSIS NONAUTO W/O SCOPE 35555 Urobilinogen NEG DateTime(Free Text in Aprima) URINALYSIS NONAUTO W/O SCOPE 98212 Nitrite NEG DateTime( Free Text in Aprima) URINALYSIS NONAUTO W/O SCOPE 49216 Leukocytes ++ DateTime(Free Text in Aprima) URINALYSIS NONAUTO W/O SCOPE 16876 Specific [place] 1.010 DateTime(Free Text in Aprima) URINALYSIS NONAUTO W/O SCOPE 45473 PH 6.0 DateTime(Free Text in Aprima) URINALYSIS NONAUTO W/O SCOPE 11621 GLUCOSE NEG DateTime( Free Text in Aprima) URINALYSIS NONAUTO W/O SCOPE 88820 Protein NEG DateTime( Free Text in Aprima) URINALYSIS NONAUTO W/O SCOPE 38121 Blood NEG DateTime(Free Text in Aprima) URINALYSIS NONAUTO W/O SCOPE 05642 Bilirubin NEG DateTime(Free Text in Aprima) URINALYSIS NONAUTO W/O SCOPE 36797 Ketones NEG DateTime( Free Text in Aprima) URINALYSIS NONAUTO W/O SCOPE 17567 Urobilinogen NEG DateTime(Free Text in Aprima) URINALYSIS NONAUTO W/O SCOPE 21757 Nitrite NEG DateTime( Free Text in Aprima) URINALYSIS NONAUTO W/O SCOPE 03644 Leukocytes NEG DateTime(Free Text in Aprima) URINALYSIS NONAUTO W/O SCOPE 66759 Specific [place] 1.010 DateTime(Free Text in Aprima) URINALYSIS NONAUTO W/O SCOPE 89490 PH 5 DateTime(Free Text in Aprima) URINALYSIS NONAUTO W/O SCOPE 69620 GLUCOSE neg DateTime( Free Text in Aprima) URINALYSIS NONAUTO W/O SCOPE 84925 Protein neg DateTime( Free Text in Aprima) URINALYSIS NONAUTO W/O SCOPE 11165 Blood neg DateTime(Free Text in Aprima) URINALYSIS NONAUTO W/O SCOPE 78033 Bilirubin neg DateTime(Free Text in Aprima) URINALYSIS NONAUTO W/O SCOPE 79974 Ketones neg DateTime( Free Text in Aprima) URINALYSIS NONAUTO W/O SCOPE 84085 Urobilinogen neg DateTime(Free Text in Aprima) URINALYSIS NONAUTO W/O SCOPE 61763 Nitrite neg DateTime( Free Text in Aprima) URINALYSIS NONAUTO W/O SCOPE 32659 Leukocytes 1+ DateTime(Free Text in Aprima) URINALYSIS NONAUTO W/O SCOPE 14470 Specific [place] 1.015 DateTime(Free Text in Aprima) URINALYSIS NONAUTO W/O SCOPE 20894 PH 5 DateTime(Free Text in Aprima) URINALYSIS NONAUTO W/O SCOPE 22744 GLUCOSE neg DateTime( Free Text in Aprima) URINALYSIS NONAUTO W/O SCOPE 32773 Protein neg DateTime( Free Text in Aprima) URINALYSIS NONAUTO W/O SCOPE 44260 Blood neg DateTime(Free Text in Aprima) URINALYSIS NONAUTO W/O SCOPE 26930 Bilirubin neg DateTime(Free Text in Aprima) URINALYSIS NONAUTO W/O SCOPE 24958 Ketones neg DateTime( Free Text in Aprima) URINALYSIS NONAUTO W/O SCOPE 14476 Urobilinogen neg DateTime(Free Text in Aprima) URINALYSIS NONAUTO W/O SCOPE 76831 Nitrite neg DateTime( Free Text in Aprima) URINALYSIS NONAUTO W/O SCOPE 43852 Leukocytes neg DateTime(Free Text in Aprima) URINALYSIS NONAUTO W/O SCOPE 54057 Specific [place] 1.015 DateTime(Free Text in Aprima) URINALYSIS NONAUTO W/O SCOPE 32239 PH 7 DateTime(Free Text in ) URINALYSIS NONAUTO W/O SCOPE 69040 GLUCOSE DateTime( Free Text in Aprima) URINALYSIS NONAUTO W/O SCOPE 07190 Protein DateTime( Free Text in Aprima) URINALYSIS NONAUTO W/O SCOPE 61171 Blood DateTime(Free Text in Aprima) URINALYSIS NONAUTO W/O SCOPE 77853 Bilirubin DateTime( Free Text in Aprima) URINALYSIS NONAUTO W/O SCOPE 19418 Ketones DateTime( Free Text in Aprima) URINALYSIS NONAUTO W/O SCOPE 58728 Urobilinogen DateTime (Free Text in Aprima) URINALYSIS NONAUTO W/O SCOPE 64987 Nitrite DateTime( Free Text in Aprima) URINALYSIS NONAUTO W/O SCOPE 70543 Leukocytes DateTime( Free Text in ) UA 56283 Specific [place] 6 DateTime(Free Text in ) UA 98936 PH 1.020 DateTime(Free Text in ) UA 68896 GLUCOSE N DateTime(Free Text in ) UA 07288 Protein N DateTime(Free Text in Aprima) UA 91680 Blood N DateTime(Free Text in Novima) UA 19201 Bilirubin N DateTime(Free Text in ) UA 50364 Ketones N DateTime(Free Text in ) UA 70177 Urobilinogen N DateTime(Free Text in ) UA 78911 Nitrite POSITIVE DateTime(Free Text in ) UA 25245 Leukocytes SMALL DateTime(Free Text in ) Review of Systems System Result Effective Dates Constitutional recent illness 09/12/2017 Constitutional No anorexia [...] alteration of consciousness 09/12/2017 Constitutional recent illness 08/09/2017 Constitutional No anorexia [...] nourished 04/19/2011 None Procedures Procedure Codes Date TRIAMCINOLONE ACET INJ NOS CPT-4: J3301 08/09/2017 ROCEPHIN, PER 250 MG CPT-4: J0696 08/09/2017 PPPS, SUBSEQ VISIT CPT -4: G0439 04/12/2017 DEPRESSION SCREEN ANNUAL CPT-4: G0444 04/12/2017 FALL RISK ASSESSMENT DOCD CPT-4: 3288F 04/12/2017 THER/PROPH/DIAG INJ SC/IM CPT-4: 75481 01/04/2017 TRIAMCINOLONE ACET INJ NOS CPT-4: J3301 01/04/2017 TRIAMCINOLONE ACET INJ NOS CPT-4: J3301 08/23/2016 THER/PROPH/DIAG INJ SC/IM CPT-4: 66403 08/23/2016 ROUTINE VENIPUNCTURE CPT-4: 44238 08/28/2014 ADMIN INFLUENZA VIRUS VAC Assigned to/Yancy Howell CPT-4: [id number] 05/20/2014 FLU VAC NO PRSV 4 PREMA 3 YRS+ CPT-4: 05460 05/20/2014 URINALYSIS NONAUTO W/O SCOPE CPT-4: 85900 05/07/2014 ROCEPHIN, PER 250 MG CPT-4: J0696 05/07/2014 ROUTINE VENIPUNCTURE CPT-4: 96857 04/14/2014 DESTRUCT PREMALG LESION CPT-4: 81901 01/27/2014 DESTRUCT PREMALG LES 2-14 CPT-4: 64682 01/27/2014 ROCEPHIN, PER 250 MG CPT-4: J0696 12/26/2013 TRIAMCINOLONE ACET INJ NOS CPT-4: J3301 12/26/2013 TRIAMCINOLONE ACET INJ NOS CPT-4: J3301 11/12/2013 ROUTINE VENIPUNCTURE CPT-4: 97640 11/12/2013 ROCEPHIN, PER 250 MG CPT-4: J0696 10/09/2013 ROUTINE VENIPUNCTURE CPT-4: 78378 03/31/2013 URINALYSIS NONAUTO W/O SCOPE CPT-4: 11903 03/21/2013 TRIAMCINOLONE ACET INJ NOS CPT-4: J3301 11/21/2012 URINALYSIS NONAUTO W/O SCOPE CPT-4: 14332 09/30/2012 URINALYSIS NONAUTO W/O SCOPE CPT-4: 83095 09/11/2012 ROUTINE VENIPUNCTURE CPT-4: 13622 09/11/2012 PRESCRIP TRANSMIT VIA ERX SY CPT-4: G8553 08/05/2012 ADMIN INFLUENZA VIRUS VAC CPT-4: G0008 05/03/2012 FLULAVAL VACC, 3 YRS & >, IM CPT-4: Q2036 05/03/2012 EXC TR-EXT B9+ANA 0.6-1 CM CPT-4: 94812 04/23/2012 ROUTINE VENIPUNCTURE CPT-4: 61311 04/16/2012 ROUTINE VENIPUNCTURE CPT-4: 63253 12/21/2011 PRESCRIP TRANSMIT VIA ERX SY CPT-4: G8553 12/04/2011 URINALYSIS NONAUTO W/O SCOPE CPT-4: 95917 12/01/2011 URINALYSIS NONAUTO W/O SCOPE CPT-4: 57774 11/20/2011 PRESCRIP TRANSMIT VIA ERX SY CPT-4: G8553 09/20/2011 URINALYSIS NONAUTO W/O SCOPE CPT-4: 24925 09/06/2011 ROCEPHIN, PER 250 MG CPT-4: J0696 08/30/2011 THER/PROPH/DIAG INJ SC/IM CPT-4: 43170 08/30/2011 ROUTINE VENIPUNCTURE CPT-4: 12409 08/30/2011 PRESCRIP TRANSMIT VIA ERX SY CPT-4: G8553 08/30/2011 ROCEPHIN, PER 250 MG CPT-4: J0696 08/23/2011 THER/PROPH/DIAG INJ SC/IM CPT-4: 44962 08/23/2011 URINALYSIS NONAUTO W/O SCOPE CPT-4: 22216 08/23/2011 PRESCRIP TRANSMIT VIA ERX SY CPT-4: G8553 08/23/2011 ROUTINE VENIPUNCTURE CPT-4: 22283 05/04/2011 PRESCRIP TRANSMIT VIA ERX SY CPT-4: G8553 05/04/2011 TRIAMCINOLONE ACET INJ NOS CPT-4: J3301 04/19/2011 THER/PROPH/DIAG INJ SC/IM CPT-4: 87202 04/19/2011 PRESCRIP TRANSMIT VIA ERX SY CPT-4: G8553 04/19/2011 Vital Signs Date Vital 09/12/2017 Blood Pressure 1: 142/62 Code : 8480-6 BMI: 39.1 Code : 18906-8 Heart Rate 1 : 49 bpm Height: 5'3" SpO2: 98% Weight: 221 lbs 08/09/2017 Blood Pressure 1: 132/82 Code : 8480-6 BMI: 39.3 Code : 37381-5 Heart Rate 1 : 85 bpm Height: 5'3" SpO2: 98% Temperature: 36.6 (C) / 97.8 (F) Weight: 222 lbs 05/07/2017 Blood Pressure 1: 118/70 Code : 8480-6 BMI: 38.8 Code : 62001-0 Heart Rate 1 : 58 bpm Height: 5'3" SpO2: 97% Weight: 219 lbs 04/12/2017 Blood Pressure 1: 140/72 Code : 8480-6 BMI: 38.9 Code : 90686-5 Heart Rate 1 : 78 bpm Height: [...] Code : 8480-6 BMI: 39.7 Code : 00502-2 Heart Rate 1 : 58 bpm Height: 5'3" SpO2: 95% Weight: 224 lbs 01/15/2017 Blood Pressure 1: 148/70 Code : 8480-6 Heart Rate 1: 65 bpm Height: SpO2: 96% Weight: 01/04/2017 Blood Pressure 1: 132/60 Code : 8480-6 BMI: 39.9 Code : 86661-3 Heart Rate 1 : 57 bpm Height: 5'3" SpO2: 95% Weight: 225 lbs 09/07/2016 Blood Pressure 1: 144/70 Code : 8480-6 BMI: 37.6 Code : 03317-3 Heart Rate 1 : 50 bpm Height: 5'3" SpO2: 96% Weight: 212 lbs 07/06/2016 Blood Pressure 1: 134/64 Code : 8480-6 BMI: 38.6 Code : 66724-0 Heart Rate 1 : 60 bpm Height: 5'3" SpO2: 94% Weight: 218 lbs 06/16/2016 Blood Pressure 1: 140/80 Code : 8480-6 06/08/2016 Blood Pressure 1: 150/76 Code : 8480-6 BMI: 38.4 Code : 22477-6 Heart Rate 1 : 60 bpm Height: 5'3" SpO2: 96% Weight: 217 lbs 04/17/2016 Blood Pressure 1: 150/70 Code : 8480-6 Heart Rate 1: 63 bpm SpO2: 93% 04/06/2016 Blood Pressure 1: 154/52 Code : 8480-6 BMI: 38.6 Code : 53931-4 Heart Rate 1 : 54 bpm Height: 5'3" SpO2: 95% Weight: 218 lbs 03/10/2016 Blood Pressure 1: 160/64 Code : 8480-6 03/09/2016 Blood Pressure 1: 152/78 Code : 8480-6 BMI: 38.8 Code : 28855-2 Heart Rate 1 : 63 bpm Height: 5'3" SpO2: 92% Weight: 219 lbs 01/18/2016 Blood Pressure 1: 144/72 Code : 8480-6 BMI: 39.0 Code : 98190-9 Heart Rate 1 : 68 bpm Height: 5'3" SpO2: 93% Weight: 220 lbs 09/09/2015 Blood Pressure 1: 126/68 Code : 8480-6 BMI: 39.0 Code : 90204-1 Height: 5'3" SpO2: 94% Weight: 220 lbs 12/25/2014 Blood Pressure 1: 138/68 Code : 8480-6 BMI: 37.7 Code : 40249-1 Heart Rate 1 : 68 bpm Height: 5'3" SpO2: 97% Weight: 213 lbs 10/13/2014 Blood Pressure 1: 118/68 Code : 8480-6 BMI: 39.3 Code : 93028-4 Heart Rate 1 : 54 bpm Height: 5'3" SpO2: 98% Weight: 222 lbs 08/28/2014 Blood Pressure 1: 140/62 Code : 8480-6 Heart Rate 1: 60 bpm Weight: 212 lbs 08/07/2014 Blood Pressure 1: 138/62 Code : 8480-6 05/20/2014 Temperature: 35.5 (C) / 95.9 (F) 05/07/2014 Blood Pressure 1: 148/70 Code : 8480-6 BMI: 38.6 Code : 82452-8 Heart Rate 1 : 61 bpm Height: 5'3" SpO2: 96% Weight: 218 lbs 04/16/2014 Blood Pressure 1: 142/68 Code : 8480-6 BMI: 37.6 Code : 23259-3 Heart Rate 1 : 58 bpm Height: 5'3" Weight: 212 lbs 01/27/2014 Blood Pressure 1: 122/62 Code : 8480-6 Blood Pressure 2: 118/60 Code: 8480-6 Heart Rate 1: 60 bpm Weight: 210 lbs 01/21/2014 Blood Pressure 1: 130/62 Code : 8480-6 BMI: 37.2 Code : 45186-5 Heart Rate 1 : 68 bpm Height: 5'3" SpO2: 97% Weight: 210 lbs 01/07/2014 Blood Pressure 1: 108/58 Code : 8480-6 BMI: 36.8 Code : 50503-2 Heart Rate 1 : 44 bpm Height: 5'3" Weight: 208 lbs 12/26/2013 Blood Pressure 1: 122/60 Code : 8480-6 BMI: 37.6 Code : 94495-9 Heart Rate 1 : 56 bpm Height: [...] Code : 8480-6 BMI: 36.7 Code : 24341-8 Heart Rate 1 : 76 bpm Height: 5'3" Weight: 207 lbs 01/06/2013 Blood Pressure 1: 130/70 Code : 8480-6 BMI: 36.5 Code : 47626-6 Heart Rate 1 : 72 bpm Height: [...] Code : 8480-6 BMI: 38.3 Code : 81542-4 Heart Rate 1 : 60 bpm Height: [...] Code : 8480-6 BMI: 38.3 Code : 21461-9 Heart Rate 1 : 60 bpm Height: 5'3" Weight: 216 lbs 12/25/2011 Blood Pressure 1: 142/76 Code : 8480-6 Heart Rate 1: 60 bpm Respiratory Rate : 20 bpm Weight: 213 lbs 12/04/2011 Blood Pressure 1: 142/64 Code : 8480-6 BMI: 38.6 Code : 91812-7 Heart Rate 1 : 59 bpm Height: 5'3" Respiratory Rate: 20 bpm SpO2: 96% Weight: 218 lbs 09/20/2011 Blood Pressure 1: 166/68 Code : 8480-6 BMI: 36.5 Code : 74818-8 Heart Rate 1 : 50 bpm Height: [...] Code : 8480-6 BMI: 36.8 Code : 81448-2 Heart Rate 1 : 64 bpm Height: 5'3" Respiratory Rate: 16 bpm Weight: 211 lbs 05/04/2011 Blood Pressure 1: 142/58 Code : 8480-6 BMI: 38.0 Code : 87153-5 Heart Rate 1 : 56 bpm Height: 5'2" Respiratory Rate: 12 bpm Weight: 211 lbs 04/19/2011 Blood Pressure 1: 138/51 Code : 8480-6 BMI: 35.5 Code : 97696-0 Heart Rate 1 : 66 bpm Height: 5'4" Weight: 210 lbs Functional Status No Functional Status data History of Present Illness Symptom Name Status Result Effective Date Notes hypertension Quality primary hypertension 09/12/2017 None hypertension [...] blood pressure at home 09/12/2017 None cough Pertinent Findings hoarseness 08/09/2017 None [...] data Encounters Encounter Performer Location Codes Date ([id number]) 59214 EST. PATIENT, LEVEL IV Diagnosis: Atrophy of thyroid (acquired)[ICD10: E03.4] Diagnosis: Essential (primary) hypertension[ICD10: I10] Diagnosis: Generalized anxiety disorder[ICD10: F41.1] Diagnosis: Acute recurrent maxillary sinusitis[ICD10: J01.01] Diagnosis: Mixed hyperlipidemia[ICD10: E78.2] Concepción Flanagan MD, [facility] CPT-4: 85434 09/12/2017 ([id number]) 98079 EST. PATIENT, LEVEL III Diagnosis: Cough[ICD10: R05] Diagnosis: Acute upper respiratory infection, unspecified[ICD10: J06.9] Chaparrita Flanagan MD, [facility] CPT-4: 27377 08/09/2017 ([id number]) 13038 EST. PATIENT, LEVEL IV Diagnosis: Essential (primary) hypertension[ICD10: I10] Diagnosis: Mixed hyperlipidemia[ICD10: E78.2] Diagnosis: Atrophy of thyroid (acquired)[ICD10: E03.4] [facility] CPT-4: 58472 05/07/2017 ([id number]) Miscellaneous no charge Diagnosis: Essential (primary) hypertension[ICD10: I10] [facility] CPT-4: 91684 02/15/2017 ([id number]) Miscellaneous no charge Diagnosis: Cough[ICD10: R05] Diagnosis: Urinary tract infection, site not specified[ICD10: N39.0] Chaparrita Flanagan MD , [facility] CPT-4: 61361 02/05/2017 ([id number]) 17558 EST. PATIENT, LEVEL III Diagnosis: Gastro-esophageal reflux 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[ICD10: K21.9] Diagnosis: Urinary tract infection, site not specified[ICD10: N39.0] Diagnosis: Localized edema[ICD10: R60.0] Chaparrita Flanagan MD, [facility] CPT-4: 28076 02/02/2017 ([id number]) 80330 EST. PATIENT, LEVEL III Diagnosis: Acute recurrent maxillary sinusitis[ICD10: J01.01] Diagnosis: Cough[ICD10: R05] Chaparrita Flanagan MD, [facility] CPT-4: 00694 01/15/2017 ([id number]) 40003 EST. PATIENT, LEVEL IV Diagnosis: Essential (primary) hypertension[ICD10: I10] Diagnosis: Mixed hyperlipidemia[ICD10: E78.2] Diagnosis: Pain in left knee[ICD10: M25.562] Diagnosis: Allergic rhinitis due to pollen[ICD10: J30.1] Concepción Flanagan MD, [facility] CPT-4: 22062 01/04/2017 ([id number]) 88575 EST. PATIENT, LEVEL IV Diagnosis: Essential (primary) hypertension[ICD10: I10] Diagnosis: Major depressive disorder, recurrent, moderate[ICD10: F33.1] Concepción Flanagan MD, [facility] CPT-4: 55121 09/07/2016 ([id number]) 75104 EST. PATIENT, LEVEL III Diagnosis: Essential (primary) hypertension[ICD10: I10] Concepción Flanagan MD, [facility] CPT-4: 41080 07/06/2016 ([id number]) Miscellaneous no charge Diagnosis: Essential (primary) hypertension[ICD10: I10] Hayley Flanagan MD, [facility] CPT-4: 60550 06/16/2016 ([id number]) 68871 EST. PATIENT, LEVEL III Diagnosis: Essential (primary) hypertension[ICD10: I10] Diagnosis: Generalized anxiety disorder[ICD10: F41.1] Concepción Flanagan MD, [facility] CPT-4: 60005 06/08/2016 ([id number]) Miscellaneous no charge Diagnosis: Essential (primary) hypertension[ICD10: I10] Hayley Flanagan MD, [facility] CPT-4: 97692 04/17/2016 ([id number]) 61297 EST. PATIENT, LEVEL IV Diagnosis: Essential (primary) hypertension[ICD10: I10] Diagnosis: Localized edema[ICD10: R60.0] Concepción Flanagan MD, [facility] CPT- 4: 53539 04/06/2016 ([id number]) Miscellaneous no charge Diagnosis: Essential (primary) hypertension[ICD10: I10] Chaparrita Flanagan MD, [facility] CPT-4: 35193 03/10/2016 ([id number]) 86915 EST. PATIENT, LEVEL IV Diagnosis: Essential (primary) hypertension[ICD10: I10] Diagnosis: Mixed hyperlipidemia[ICD10: E78.2] Diagnosis: Hypothyroidism, unspecified[ICD10: E03.9] Diagnosis: Generalized anxiety disorder[ICD10: F41.1] Chaparrita Flanagan MD, [facility] CPT-4: 84633 03/09/2016 ([id number]) 37460 EST. 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 PATIENT, LEVEL IV Diagnosis: ESSENTIAL HYPERTENSION[ICD9: 401.9] Diagnosis: Sleep apnea[ICD9: 780.57] Diagnosis: ANEMIA[ICD9: 285.9] Concepción Flanagan MD, [facility] CPT-4: 83029 12/25/2014 ([id number]) 95473 EST. PATIENT, LEVEL III Diagnosis: ESSENTIAL HYPERTENSION[ICD9: 401.9] Concepción Flanagan MD [facility] CPT-4: 43558 10/13/2014 ([id number]) 35940 EST. PATIENT, LEVEL IV Diagnosis: HYPOTHYROIDISM[ICD9: 244.9] Diagnosis: HYPERLIPIDEMIA[ICD9: 272.4] Diagnosis: ESSENTIAL HYPERTENSION[ICD9: 401.9] Diagnosis: ENCNTR LONG-RX USE NEC[ICD9: V58.69] Diagnosis: Sleep apnea[ICD9: 780.57] Concepción Flanagan MD, [facility] CPT-4: 64260 08/28/2014 ([id number]) Miscellaneous no charge Diagnosis: ESSENTIAL HYPERTENSION[ICD9: 401.9] Concepción Flanagan MD, [facility] CPT-4: 94284 08/07/2014 ([id number]) 31890 EST. PATIENT, LEVEL IV Diagnosis: EDEMA[ICD9: 782.3] Diagnosis: ACUTE SINUSITIS[ICD9: 461.9] Diagnosis: Urinary tract infection[ICD9: 599.0] Diagnosis: Nocturnal hypoxia[ICD9: 799.02] Chaparrita Flanagan MD, [facility] CPT-4: 55495 05/07/2014 ([id number]) 73804 EST. PATIENT, LEVEL IV Diagnosis: ESSENTIAL HYPERTENSION[ICD9: 401.9] Diagnosis: HYPERLIPIDEMIA[ICD9: 272.4] Diagnosis: JOINT PAIN-L/LEG[ICD9: 719.46] Concepción Flanagan MD, [facility] CPT- 4: 42726 04/16/2014 ([id number]) 22191 EST. PATIENT, LEVEL IV Diagnosis: ESSENTIAL HYPERTENSION[SNOMED: 93217162] Diagnosis: HYPERLIPIDEMIA[ICD9: 272.4] Diagnosis: HYPOTHYROIDISM[ICD9: 244.9] Diagnosis: Nocturnal hypoxaemia[ICD9: 799.02] Concepción Flanagan MD, [facility] CPT-4: 72782 01/21/2014 ([id number]) 27901 EST. PATIENT, LEVEL III Diagnosis: ESSENTIAL HYPERTENSION[SNOMED: 51263128] Diagnosis: Bradycardia[ICD9: 427.89] Concepción Flanagan MD, [facility] CPT-4: 93254 01/07/2014 ([id number]) 25340 EST. PATIENT, LEVEL III Diagnosis: ACUTE URI[ICD9: 465.9] Diagnosis: COUGH[ICD9: 786.2] Chaparrita Flanagan MD, [facility] CPT-4: 62532 12/26/2013 ([id number]) 05919 EST. PATIENT, LEVEL III Diagnosis: ALLERGIC RHINITIS[ICD9: 477.9] Diagnosis: HYPERLIPIDEMIA[ICD9: 272.4] Diagnosis: ESSENTIAL HYPERTENSION[SNOMED: 64183568] Diagnosis: ENCNTR LONG-RX USE NEC[ICD9: V58.69] Diagnosis: Laboratory exam ordered as part of routine general medical examination[ICD9: V72.62] Diagnosis: HYPOTHYROIDISM[ICD9: 244.9] Chaparrita Flanagan MD, [facility] CPT-4: 67045 11/12/2013 ([id number]) 63753 EST. PATIENT, LEVEL III Diagnosis: Acute maxillary sinusitis[ICD9: 461.0] Chaparrita Flanagan MD, [facility] CPT-4: 04246 10/09/2013 ([id number]) 41138 EST. PATIENT, LEVEL III Diagnosis: ESSENTIAL HYPERTENSION[SNOMED: 83449326] Diagnosis: DYSURIA[ICD9: 788.1] Concepción Flanagan MD, [facility] CPT-4: 82135 04/03/2013 ([id number]) 37747 EST. PATIENT, LEVEL III Diagnosis: ESSENTIAL HYPERTENSION[SNOMED: 66151009] Diagnosis: EDEMA[ICD9: 782.3] Concepción Flanagan MD, [facility] CPT-4: 81446 01/06/2013 ([id number]) 08793 EST. PATIENT, LEVEL III Diagnosis: UNSPECIFIED ASTHMA[ICD9: 493.90] Diagnosis: Cough[ICD9: 786.2] Diagnosis: ALLERGIC RHINITIS[ICD9: 477.9] Concepción Flanagan MD, [facility] CPT- 4: 48954 11/21/2012 ([id number]) 92959 EST. PATIENT, LEVEL IV Diagnosis: ESSENTIAL HYPERTENSION[SNOMED: 05391176] Diagnosis: EDEMA[ICD9: 782.3] Concepción Flanagan MD, [facility] CPT-4: 23451 10/28/2012 ([id number]) 27485 EST. PATIENT, LEVEL IV Diagnosis: ESSENTIAL HYPERTENSION[SNOMED: 56074292] Diagnosis: EDEMA[ICD9: 782.3] Diagnosis: Knee pain, right[ICD9: 719.46] Diagnosis: Urge incontinence[ICD9: 788.31] Concepción Flanagan MD [facility] CPT- 4: 23151 09/30/2012 ([id number]) 85237 EST. PATIENT, LEVEL III Diagnosis: ESSENTIAL HYPERTENSION[SNOMED: 29730754] Concepción Flanagan MD [facility] CPT-4: 95168 08/14/2012 ([id number]) 46355 EST. PATIENT, LEVEL III Diagnosis: CELLULITIS OF LEG[ICD9: 682.6] Concepción Flanagan MD [facility] CPT- 4: 59574 08/05/2012 ([id number]) 88820 EST. PATIENT, LEVEL IV Diagnosis: ESSENTIAL HYPERTENSION[SNOMED: 90781329] Diagnosis: EDEMA[ICD9: 782.3] Diagnosis: Constipation[ICD9: 564.00] Concepción Flanagan MD [facility] CPT- 4: 99503 07/15/2012 ([id number]) 00365 EST. PATIENT, LEVEL III Diagnosis: Subungual contusion of toenail[ICD9: 924.3] Concepción Flanagan MD [facility] CPT-4: 97930 05/27/2012 Postop follow up visit related to original px Diagnosis: BENIGN ERLINDA SKIN ARM[ICD9: 216.6] Diagnosis: BENIGN ERLINDA SKIN TRUNK[ICD9: 216.5] Concepción Flanagan MD, [facility] CPT-4: 83779 05/03/2012 ([id number]) 70863 EST. PATIENT, LEVEL IV Diagnosis: ESSENTIAL HYPERTENSION[SNOMED: 20913053] Diagnosis: OA (osteoarthritis) of knee[ICD9: 715.96] Diagnosis: EDEMA[ICD9: 782.3] Concepción Flanagan MD [facility] CPT-4: 06479 03/25/2012 97910 EST. PATIENT, LEVEL IV Diagnosis: ESSENTIAL HYPERTENSION[SNOMED: 71843630] Diagnosis: Abdominal bloating[ICD9: 787.3] Concepción Flanagan MD, [facility] CPT- 4: 36246 03/12/2012 ([id number]) 81442 EST. PATIENT, LEVEL IV Diagnosis: ESSENTIAL HYPERTENSION[SNOMED: 57788573] Diagnosis: EDEMA[ICD9: 782.3] Concepción Flanagan MD, [facility] CPT-4: 08690 01/23/2012 ([id number]) 91505 EST. PATIENT, LEVEL III Diagnosis: Breast pain, left[ICD9: 611.71] Chaparrita Berny Flanagan MD, [facility] CPT-4: 97667 01/12/2012 ([id number]) 84815 EST. PATIENT, LEVEL IV Diagnosis: ESSENTIAL HYPERTENSION[SNOMED: 05864037] Diagnosis: DEPRESSIVE DISORDER NEC[ICD9: 311] Diagnosis: ANXIETY STATE[ICD9: 300.00] Concepción Flanagan MD [facility] CPT- 4: 85720 12/25/2011 ([id number]) 26546 EST. PATIENT, LEVEL IV Diagnosis: ESSENTIAL HYPERTENSION[SNOMED: 08804364] Diagnosis: EDEMA[ICD9: 782.3] Concepción Flanagan MD, [facility] CPT-4: 15071 12/04/2011 ([id number]) 20735 EST. PATIENT, LEVEL IV Diagnosis: ESSENTIAL HYPERTENSION[SNOMED: 31467694] Diagnosis: DEPRESSIVE DISORDER NEC[ICD9: 311] Concepción Flanagan MD, [facility] CPT-4: 94406 09/20/2011 06311 EST. PATIENT, LEVEL IV Diagnosis: Dysuria[ICD9: 788.1] Diagnosis: ESSENTIAL HYPERTENSION[SNOMED: 98705097] Diagnosis: Anxiety[ICD9: 300.00] Concepción Flanagan MD [facility] CPT-4: 86228 09/06/2011 ([id number]) 65154 EST. PATIENT, LEVEL IV Diagnosis: LUMBAGO[ICD9: 724.2] Diagnosis: ESSENTIAL HYPERTENSION[SNOMED: 08144689] Concepción Flanagan MD, [facility] CPT-4: 65907 08/30/2011 [id number] EST. PATIENT, LEVEL III Diagnosis: ACUTE SINUSITIS[ICD9: 461.9] Diagnosis: Urinary frequency[ICD9: 788.41] Chaparrita Flanagan MD, [facility] CPT-4: 94296 08/23/2011 [id number] EST. PATIENT, LEVEL III Diagnosis: Lesion of labia[ICD9: 624.8] Chaparrita Flanagan MD, [facility] CPT-4: 98660 08/09/2011 47016 EST. PATIENT, LEVEL IV Diagnosis: HYPOTHYROIDISM[ICD9: 244.9] Diagnosis: HYPERLIPIDEMIA[ICD9: 272.4] Diagnosis: BP (high blood pressure)[SNOMED: 26779873] Diagnosis: Knee pain, bilateral[ICD9: 719.46] Diagnosis: ESOPHAGEAL REFLUX[ICD9: 530.81] Concepción Flanagan MD, [facility] CPT- 4: 10645 05/04/2011 [id number] EST. PATIENT, LEVEL III Diagnosis: ACUTE URI[ICD9: 465.9] Diagnosis: Asthma[ICD9: 493.90] Diagnosis: Esophageal reflux[ICD9: 530.81] Chaparrita Flanagan MD, [facility] CPT-4: 12906 04/19/2011 Plan of Care Planned Activity Notes Codes Status Date Visit Plan: Acute Maxillary Sinusitis - if not improving - pt would like to see an ENT - Hortensia Tompkins in [place]. Treatment as follows: cefdinir - antibiotic twice [...] pain - symptoms - refilled hydrocodone. 09/12/2017 Patient Education: Patient Medication Summary Completed 09/12/2017 Care Plan: Comp Metabolic Pending 09/12/2017 Care Plan: Cbc With Differential Pending 09/12/2017 Care Plan: Tsh Pending 09/12/2017 Care Plan: Free T4 Pending 09/12/2017 Care Plan: Lipid Pending 09/12/2017 App[facility]ment: [id number] [place] ([facility] [place] Complex 08/31/2017 Visit Plan: URI - Pt advised to increase fluids, vitamin C. Discussed natural and expected course of this diagnosis and need to alert me if symptoms do not follow expected course, or if any worse. RX sent to patient' s pharmacy. 08/09/2017 Appointment: Chaparrita Ar[facility]eta [phone] [place] (30 min) Complex 08/09/2017 Patient Education: [...] - symptoms - refilled hydrocodone. 05/07/2017 Appointment: [facility]anch[facility]Demiy [phone] (15 min) Moderate 05/07/2017 Patient Education: [...] surrogate. 04/12/2017 Appointment: Hayley London [facility]el[phone] [facility] - Annual Wellness Visit 04/12/2017 Patient Education: Patient Medication Summary Completed 04/12/2017 Appointment: Nurse Visit 02/15/2017 Patient Education: Patient Medication Summary Completed 02/15/2017 Visit Plan: Akzbz-qguaohjsen-pxyvi zpack when finished with cipro-follow up chest [...] up Sunday02/02/2017 Appointment: Chaparrita Arrieta [facility]el[phone] (15 min) Moderate 02/02/2017 Patient Education: Patient Medication Summary Completed 02/02/2017 Patient Education: Obesity Completed 02/02/2017 Visit Plan: Sinusitis - Pt has acute infection - pain in face, maxillary region, Pt informed to use decongestant, RX given to patient, sinus rinses also recommended. Call if symptoms do not show improvement. 01/15/2017 Appointment: Chaparrita Arrieta WPtel: [phone] (10 min) Simple 01/15/2017 Patient Education: Patient [...] today 01/04/2017 Appointment: Concepción Flanagan WPtel: [phone] [facility] (15 min) Moderate 01/04/2017 Patient Education: Patient [...] (lexapro). 09/07/2016 Appointment: Concepción Flanagan [phone] (30 min) Complex 09/07/2016 Patient Education: [...] home. 07/06/2016 Appointment: Concepción Flanagan [phone] (15 min) Moderate 07/06/2016 Patient Education: [...] AT 1/2 PILL TWICE DAILY 06/08/2016 Appointment: [place]ce[place] WPtel: [phone] [facility] (15 min) Moderate 06/08/2016 Patient Education: Patient [...] edema. 04/06/2016 Appointment: Concepción Flanagan [phone] (15 min) Moderate 04/06/2016 Patient Education: [...] for Mikala. 01/18/2016 Appointment: Concepción Flanagan WPtel: [address] [place], [place] [address] (15 min) Moderate 01/18/2016 Patient Education: Patient [...] fatigue improved-will fax today's note to [employer] for re-certification of oxygen. 09/09/2015 Visit Plan: [...] daytime fatigue improved-will fax today's note to [employer] for re-certification of oxygen. 09/09/2015 Appointment: (15 [...] discuss with her son who is a Bead Wire Taper - and consider re-evaluation for nasal pillows with her cpap since she could not tolerate a face mask cpap in the past. 12/25/2014 Appointment: Concepción Flanagan WPtel: [address] [place], [place] [address] Follow up 12/25/2014 Patient Education: Patient Medication [...] home. 10/13/2014 Appointment: Concepción Flanagan WPtel: [phone] [facility] Follow up 10/13/2014 Patient Education: Patient Medication [...] her . 08/28/2014 Appointment: Concepción Flanagan WPtel: [phone] [facility] Follow up 08/28/2014 Patient Education: Patient Medication [...] creatinine. 04/16/2014 Appointment: Concepción Flanagan [phone] Follow up 04/16/2014 Patient Education: Patient Medication Summary Completed 04/16/2014 Patient Education: Patient Medication Summary Completed 04/14/2014 Patient Education: Hypertension Completed 04/14/2014 Visit Plan: Wound Instructions - Pt was instruced to keep the wound clean, wash with antibacterial soap, use triple antibiotic ointment, call if redness, pustular drainage, or any other acute conerns. 01/27/2014 Appointment: Concepción Flanagan [facility]Ptel[phone] [facility] [facility] Procedure 01/27/2014 Patient Education: Patient [...] home eval. 01/21/2014 Appointment: Concepción Flanagan WPtel: [facility] [place] [phone] Follow up 01/21/2014 Patient Education: Patient Medication Summary Completed 01/21/2014 Patient Education: Hypertension Completed 01/21/2014 Visit Plan: Hypotension - Bradycardia - pt to stop her metroprolol - check bp and heart rate twice daily and monitor symptoms. Call if bp uncontrolled- or heart rate to elevated. 01/07/2014 Appointment: Concepción Flanagan WPtel: [address] [place], [place] [phone] Follow up 01/07/2014 Patient Education: Hypertension Completed [...] and swallow 11/12/2013 Appointment: Chaparrita Arrieta WPtel: [facility]2 [phone] [facility] 11/12/2013 Patient Education: Patient Medication Summary Completed 11/12/2013 Patient Education: Hypertension Completed 11/12/2013 Visit Plan: Sinusitis - Pt has acute infection - pain in face, maxillary region, Pt informed to use decongestant, RX given to patient, sinus rinses also recommended. Call if symptoms do not show improvement. 10/09/2013 Appointment: Chaparrita Arrieta WPtel: [phone] [phone] Sick 10/09/2013 Patient Education: Patient Medication [...] check UA 04/03/2013 Appointment: Concepción Flanagan WPtel: [address] [place], [place] [phone] Follow up 04/03/2013 Patient Education: Patient Medication Summary Completed 04/03/2013 Patient Education: Hypertension Completed 04/03/2013 Patient Education: Patient Medication Summary Completed 03/31/2013 Patient Education: Hypertension Completed 03/31/2013 Visit Plan: ua performed - sent for culture if indicated. 03/21/2013 Appointment: Concepción Flanagan WPtel: [facility]5 [facility] Lab Draw 03/21/2013 Patient Education: Patient Medication [...] peripheral edema. 01/06/2013 Appointment: Concepción Flanagan WPtel: [phone] [facility] Follow up 01/06/2013 Patient Education: Patient Medication Summary Completed 01/06/2013 Patient Education: Hypertension Completed 01/06/2013 Visit Plan: Twmjpkyex-Mkbsxq-piwzyows not well controlled- KENALOG injection today in [...] peripheral edema. 10/28/2012 Appointment: Concepción Flanagan WPtel: [address] [place], [place] [address] Follow up 10/28/2012 Patient Education: Patient Medication [...] treatment recommendations. 09/30/2012 Appointment: Concepción Flanagan WPtel: [facility] Follow up 09/30/2012 Patient Education: Patient Medication Summary Completed 09/30/2012 Patient Education: Hypertension Completed 09/30/2012 Appointment: Concepción Flanagan [facility]Ptel: [phone] [facility] [facility] Draw 09/11/2012 Patient Education: Patient [...] - resolved 08/14/2012 Appointment: Concepción Flanagan WPtel: [facility]7 [facility] Follow up 08/14/2012 Patient Education: Patient Medication Summary Completed 08/14/2012 Patient Education: Hypertension Completed 08/14/2012 Visit Plan: Cellulitis - start with generic Bactrim DS as directed, return to clinic as previously directed, call for acute change in symptoms, worsening redness, warmth, discharge. 08/05/2012 Appointment: Concepción Flanagan WPtel: [facility]5 [facility] Follow up 08/05/2012 Patient Education: Patient Medication [...] soften stools. 07/15/2012 Appointment: Concepción Flanagan WPtel: [facility]5 [facility] [facility] follow up 07/15/2012 Patient Education: Patient Medication Summary Completed 07/15/2012 Patient Education: Hypertension Completed 07/15/2012 Visit Plan: Subungual discoloratiion of toenail- June 10 pt is to see Dr. Bee - I have discussed the case with the pt and Dr. bee and she will likely have a biopsy of the digit and avulsion of the nail. 05/27/2012 Appointment: Concepción Flanagan WPtel: [address] [place], [place] [phone] Other 05/27/2012 Patient Education: Patient Medication Summary Completed 05/27/2012 Appointment: Chaparrita Arrieta WPtel: [address] [place], [place] [phone] Follow up 05/16/2012 Visit Plan: Obesity - [...] Influenza vaccine 05/03/2012 Appointment: Chaparrita Arrieta WPtel: [facility]5 [phone] Follow up 05/03/2012 Patient Education: Patient Medication Summary Completed 05/03/2012 Visit Plan: Wound Instructions - Pt was instruced to keep the wound clean, wash with antibacterial soap, use triple antibiotic ointment, call if redness, pustular drainage, or any other acute conerns. 04/23/2012 Appointment: Concepción Flanagan WPtel: [address] [place], [place] [phone] Surgical Procedure 04/23/2012 Patient Education: Patient Medication Summary Completed 04/23/2012 Appointment: Concepción Flanagan WPtel: [address] [place], [place] [address] Lab Draw 04/16/2012 Patient Education: Patient Medication [...] readings at home. Recommend follow up with mattress packer for clearance before knee surgery. Will get [...] to thighs. 03/25/2012 Appointment: Concepción Flanagan WPtel: [facility]5 [facility] Other 03/25/2012 Patient Education: Patient Medication Summary [...] of lesion. 03/12/2012 Appointment: Chaparrita Arrieta [facility]Ptel: [phone] Other 03/12/2012 Patient Education: Patient Medication Summary [...] at home. 01/23/2012 Appointment: Concepción Flanagan WPtel: [address] [place] [address] Other 01/23/2012 Patient Education: Patient Medication Summary Completed 01/23/2012 Patient Education: High Blood Pressure: Essential Hypertension Completed 2011 Visit Plan: Breast zshh-jtvt-gbulunqjo natural and expected course of this diagnosis and to alert me if symptoms do not follow expected course, or if any worse. Plan for diagnostic mammogram, in meantime, instructed patient to get more supportive bra, use anti-inflammatories and monitor symptoms. Patient verbalized understanding of plan. 01/12/2012 Appointment: Chaparrita Arrieta WPtel: [phone] Other 01/12/2012 Patient Education: Patient Medication Summary [...] current medications. 12/25/2011 Appointment: Concepción Flanagan WPtel: [facility] [place] Other 12/25/2011 Patient Education: Patient Medication Summary [...] SOCKS. 12/04/2011 Appointment: Concepción Flanagan [facility]Ptel[phone] Other 12/04/2011 Patient Education: Patient Medication Summary Completed 12/04/2011 Patient Education: High Blood Pressure: Essential Hypertension Completed 2011 Appointment: Chaparrita Arrieta WPtel: [phone] [place] Lab Draw 12/01/2011 Patient Education: Patient Medication Summary Completed 12/01/2011 Appointment: Concepción Flanagan [facility]Ptel: [phone] [place] Lab Draw 11/20/2011 Patient Education: [...] acutely worsen. 09/20/2011 Appointment: Concepción Flanagan WPtel: [address] [place], [place] [phone] Other 09/20/2011 Patient Education: Patient Medication Summary Completed 09/20/2011 Patient Education: High Blood Pressure: Essential Hypertension Completed 2011 Appointment: Concepción Flanagan WPtel: [address] [place], [place] [phone] Other 09/13/2011 Visit Plan: Hypertension - The [...] benefits of treament with the above medications. Wpvwcgv-uaiymzrc-VO negative 09/06/2011 Appointment: Chaparrita Arrieta WPtel: [address] [place], [place] [phone] Other 09/06/2011 Patient Education: Patient Medication Summary [...] they worsen. 08/30/2011 Appointment: Concepción Flanagan WPtel: [phone] [facility] Other 08/30/2011 Patient Education: Patient Medication Summary [...] patient's pharmacy. 08/23/2011 Appointment: Chaparrita Arrieta WPtel: [phone] [phone] [place] Other 08/23/2011 Patient Education: Patient Medication Summary Completed 08/23/2011 Visit Plan: Labial cyst-discussed natural and expected course of this diagnosis and to alert me if symtpoms do not follow expected course, or if any worse. Patient and verbalized understanding. 08/09/2011 Appointment: Chaparrita Arrieta WPtel: [facility]5 [facility] [place] [address] Other 08/09/2011 Patient Education: Patient Medication Summary [...] not improving. 05/04/2011 Appointment: Concepción Flanagan WPtel: [address] [place], [place] [phone] Other 05/04/2011 Patient Education: Patient Medication Summary [...] daily. 04/19/2011 Appointment: Chaparrita Arrieta WPtel: [phone] Other 04/19/2011 Patient Education: Patient Medication Summary Completed 04/19/2011 Instructions Comment . Hypertension - well controlled [...] further attempt to reduce peripheral edema. . Wound Instructions - Pt was instruced to keep the wound clean, wash with antibacterial soap, use triple antibiotic ointment, call if redness, pustular drainage, or any other acute conerns. . Medicare Exam - today we discussed [...] Call if symptoms do not show improvement. Overnight oxygen study . Sinusitis - Pt [...] do not improve. Nocturnal hypoxia-overnight oxygen study Recommend diagnostic mammogram with ultrasound if needed Get supportive bra and make sure your breasts are well suppported. Recommend aleve twice daily and monitor symptoms. . Breast jfyo-zgwk-ttjhabhwp natural and expected course of this diagnosis and to alert me if symptoms do not follow expected course, or if any worse. Plan for diagnostic mammogram, in meantime, instructed patient to get more supportive bra, use anti- inflammatories and monitor symptoms. Patient verbalized understanding of plan. . URI-discussed expected course with the patient, [...] discuss with her son who is a Bead Wire Taper - and consider re-evaluation for nasal pillows with her cpap since she could not tolerate a face mask cpap in the past. . Cellulitis - start with generic Bactrim DS as directed, return to clinic as previously directed, call for acute change in symptoms, worsening redness, warmth, discharge. cefdinir - antibiotic twice daily x 2 weeks diflucan antifungal one time daily x 2 weeks use your sinus rinse at least twice each morning and evening . Acute Maxillary Sinusitis - if not improving - pt would like to see an ENT - [facility] Tompkins in [place]. Treatment as follows: cefdinir - antibiotic twice [...] pain - symptoms - refilled hydrocodone. . Obesity - chronic issue with this [...] conerns. Sutures removed today Influenza vaccine . ua performed - sent for culture if indicated. . continue with benicar 40mg, and increase her diltiazem to 240mg daily . Wound Instructions - Pt was instruced to keep the wound clean, wash with antibacterial soap, use triple antibiotic ointment, call if redness, pustular drainage, or any other acute conerns. Use your albuterol inhaler 1-2 puffs every 4-6 hours as needed for cough/SOA. Call if your symptoms do not improve, or if any worse.. Lrrvdlcna-Lkinyi-htjdfdqe not well controlled-KENALOG injection today in the office-use albuterol as needed. Instructed patient to continue with singulair daily and call if symptoms do not improve, or worsen. 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 . [...] to do home eval. . Hypertension - well controlled - continue [...] benefits of treament with the above medications. Acrokjy-lmvaqnsn-MO negative . Hypertension - well controlled - continue with current medications, continue with no added salt diet. Pt has been encouraged to exercise daily. The pt has been advised to call the office if there are any acute concerns about change in blood pressure readings at home. Dysuria - check UA . Subungual discoloratiion of toenail- June 10 [...] readings at home. Recommend follow up with mattress packer for clearance before knee surgery. Will get [...] fatigue improved-will fax today's note to [employer] for re-certification of oxygen. . Hypertension - [...] worse. RX sent to patient's pharmacy. . Jpeds-dzhgusyncy-aqhgo zpack when finished with cipro- follow up [...]
--- OUTSIDE RECORDS SUMMARY | 2018-12-27 11:38 | XMS REPORT | CCD ---
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 Name Role Phone Concepción Flanagan PP Unavailable CCM Unavailable Summary Purpose Interface Exchange Insurance Providers Payer name Policy type / Coverage type Covered republican ID Effective Begin Date Effective End Date WPS Medicare Part B [id number] 2015 Unknown AARP [id number] 2015 Unknown Family history Son Diagnosis Age [...] status Unknown 04/19/[address]: 5929017 Quit over 10 years ago 40 pack/year history 04/19/[address]: 512298391 Never drinks alcohol 04/19/2011 Allergies, Adverse Reactions, Alerts Allergies, Adverse Reactions, Alerts data not found Past Medical History Illness Codes Condition Status Onset Date Resolved Date Acute upper respiratory infection, unspecified ICD-9: 465.9 ICD-10: J06.9 Active 08/09/2017 Unknown Cough ICD-9: 786.2 ICD-10: R05 Active 01/15/2017 Unknown Atrophy of thyroid (acquired) ICD-9: 244.8 ICD-10: E03.4 Active 05/07/2017 Unknown Essential (primary) hypertension ICD-9: 401.1 ICD-10: I10 Active 07/05/2016 Unknown Mixed hyperlipidemia ICD-9: 272.2 ICD-10: E78.2 Active 05/07/2017 Unknown Encounter for general adult medical examination with abnormal findings ICD-9: V70.0 ICD-10: Z00.01 Active 04/12/2017 Unknown Urinary tract infection, site not specified ICD-9: 599.0 ICD-10: N39.0 Active 02/02/2017 Unknown Gastro-esophageal reflux 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 ICD-9: 530.81 ICD-10: K21.9 Active 02/02/2017 Unknown Localized edema ICD-9 : 782.3 ICD-10: R60.0 Active 05/07/2014 Unknown Acute recurrent maxillary sinusitis ICD-9: 461.0 ICD-10: J01.01 Active 01/15/2017 Unknown Allergic rhinitis due to pollen ICD-9: 477.9 ICD-10: J30.1 Active 01/04/2017 Unknown Generalized anxiety disorder ICD-9: 300.02 ICD-10: F41.1 Active 01/04/2017 Unknown Mixed hyperlipidemia ICD-9: 272.4 [...] Condition Codes Effective Dates Condition Status Acute upper respiratory infection, unspecified ICD-9: 465.9 ICD-10: J06.9 08/09/2017 Active Cough ICD-9: 786.2 ICD-10: R05 01/15/2017 Active Atrophy of thyroid (acquired) ICD-9: 244.8 ICD-10: E03.4 05/07/2017 Active Essential (primary) hypertension ICD-9: 401.1 ICD-10: I10 07/05/2016 Active Mixed hyperlipidemia ICD-9: 272.2 ICD-10: E78.2 05/07/2017 Active Encounter for general adult medical examination with abnormal findings ICD-9: V70.0 ICD-10: Z00.01 04/12/2017 Active Urinary tract infection, site not specified ICD-9: 599.0 ICD-10: N39.0 02/02/2017 Active Gastro-esophageal reflux 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 ICD-9: 530.81 ICD-10: K21.9 02/02/2017 Active Localized edema ICD-9 : 782.3 ICD-10: R60.0 05/07/2014 Active Acute recurrent maxillary sinusitis ICD-9: 461.0 ICD-10: J01.01 01/15/2017 Active Allergic rhinitis due to pollen ICD-9: 477.9 ICD-10: J30.1 01/04/2017 Active Generalized anxiety disorder ICD-9: 300.02 ICD-10: F41.1 01/04/2017 Active Mixed hyperlipidemia ICD-9: 272.4 ICD-10: [...] Cartia XT 240 mg capsule,extended release RxNorm: 588963 TAKE ONE CAPSULE BY MOUTH DAILY 09/12/2017 09/06/2018 Active prednisone 20 mg tablet RxNorm: 489410 2 Tablet(s) PO daily 12/201709/04/2017 Inactive Xanax 0.25 mg tablet RxNorm: 035677 1-2 Tablet(s) PO QHS as needed insomnia 08/28/2017 11/25/2017 Active Keflex 500 mg capsule RxNorm: 970515 1 Capsule(s) PO TID 201708/27/2017 Inactive Keflex 500 mg capsule RxNorm: 613050 1 Capsule(s) PO TID 201709/03/2017 Inactive Klor-Con 10 mEq tablet,extended release RxNorm: 006355 TAKE ONE TABLET BY MOUTH TWICE A DAY 08/23/2017 08/17/2018 Active cefdinir 300 mg capsule RxNorm: 544922 1 Capsule(s) PO BID 08/12/2017 Inactive cefdinir 300 mg capsule RxNorm: 262446 1 Capsule(s) PO BID 08/19/2017 Inactive Kenalog 40 mg/mL suspension for injection RxNorm: 5953369 1 Milliliter(s) Inj 08/09/2017 08/09/2017 Inactive ceftriaxone 500 mg solution for injection RxNorm: 5889306 Inj 08/09/2017 08/09/2017 Inactive Zithromax Z-Hebert 250 mg tablet RxNorm: 341640 1 Tablet(s) PO UD 08/09/2017 08/13/2017 Inactive Singulair 10 mg tablet RxNorm: 567720 TAKE ONE TABLET BY MOUTH EVERY DAY 08/03/2017 11/25/2018 Active Xanax 0.25 mg tablet RxNorm: 879171 1-2 Tablet(s) PO QHS as needed insomnia 07/25/2017 11/20/2017 Active Benicar 40 mg tablet RxNorm: 841307 TAKE ONE TABLET BY MOUTH DAILY 07/09/2017 04/04/2018 Active Lasix 40 mg tablet RxNorm: 278170 TAKE ONE TABLET BY MOUTH DAILY 07/09/2017 01/04/2018 Active Synthroid 50 mcg tablet RxNorm: 058047 1 Tablet(s) PO daily TAKE ONE TABLET BY MOUTH DAILY 05/21/2017 11/16/2017 Active Must be name brand Lasix 40 mg tablet RxNorm: 339430 TAKE ONE TABLET BY MOUTH DAILY 04/12/2017 07/08/2017 Inactive Zithromax Z-Hebert 250 mg tablet RxNorm: 360923 1 Tablet(s) PO UD 02/05/2017 02/09/2017 Inactive start with finished with cipro Cipro 500 mg tablet RxNorm: 889777 1 Tablet(s) PO BID 201602/07/2017 Inactive prednisone 20 mg tablet RxNorm: 811981 1 Tablet(s) PO BID 01/1501/19/2017 Inactive take 1 in the morning and 1 at noon Anusol-HC 25 mg rectal suppository RxNorm: 6416246 1 Suppository PRN INSERT 1 RECTALLY DAILY NEEDED 01/04/20172016 Inactive calcium carbonate 600 mg calcium (1,500 mg) tablet RxNorm: 903193 1 Tablet(s) PO daily 01/04/2017 No Stop Date Active Kenalog 40 mg/mL suspension for injection RxNorm: 3201912 1 Milliliter(s) Inj 01/04/2017 01/04/2017 Inactive Lasix 40 mg tablet RxNorm: 506333 TAKE ONE TABLET BY MOUTH DAILY 12/20/2016 04/11/2017 Inactive Cartia XT 240 mg capsule,extended release RxNorm: 268288 TAKE ONE CAPSULE BY MOUTH DAILY 12/20/2016 09/11/2017 Inactive meloxicam 15 mg tablet RxNorm: 293063 Tablet(s) TAKE ONE TABLET BY MOUTH ONE TIME A DAY 11/27/2016 06/24/2017 Inactive Synthroid 50 mcg tablet RxNorm: 785001 1 Tablet(s) PO daily TAKE ONE TABLET BY MOUTH DAILY 11/27/2016 05/20/2017 Inactive Must be name brand Crestor 10 mg tablet RxNorm: 666782 TAKE 1 TABLET BY MOUTH ON SUNDAY, SUNDAY, AND Sunday11/13/2016 10/14/2017 Active Lexapro 10 mg tablet RxNorm: 763076 1 Tablet(s) PO daily 201601/03/2017 Inactive please make sure that her RX for lexapro is a 10mg dose - delete the 5mg lexapro pill - this is FYI Klor-Con 10 mEq tablet,extended release RxNorm: 274704 TAKE ONE TABLET BY MOUTH TWICE A DAY 08/29/2016 02/24/2017 Inactive Kenalog 40 mg/mL suspension for injection RxNorm: 9961011 Milliliter(s) Inj 08/23/2016 08/23/2016 Inactive cefdinir 300 mg capsule RxNorm: 389990 1 Capsule(s) PO BID 08/28/2016 Inactive take probiotic while on abx Zithromax Z-Hebert 250 mg tablet RxNorm: 424036 1 Tablet(s) PO UD 08/11/2016 09/06/2016 Inactive Z PACK DIRECTED Lexapro 5 mg tablet RxNorm: 140280 TAKE ONE TABLET BY MOUTH EVERY EVENING 07/18/2016 09/06/2016 Inactive Singulair 10 mg tablet RxNorm: 735062 TAKE ONE TABLET BY MOUTH EVERY DAY 07/17/2016 08/02/2017 Inactive Benicar 40 mg tablet RxNorm: 085365 TAKE ONE TABLET BY MOUTH DAILY 07/17/2016 07/08/2017 Inactive Lexapro 10 mg tablet RxNorm: 748112 1 Tablet(s) PO daily 201509/06/2016 Inactive diltiazem ER 180 mg capsule,extended release RxNorm: 741416 TAKE ONE CAPSULE BY MOUTH DAILY 06/15/2016 07/05/2016 Inactive Lexapro 10 mg tablet RxNorm: 710967 1 Tablet(s) PO daily 201506/15/2016 Inactive gabapentin 600 mg tablet RxNorm: 398295 TAKE ONE TABLET BY MOUTH EVERY NIGHT AT BEDTIME NEEDED 04/27/2016 04/11/2017 Inactive Cartia XT 240 mg capsule,extended release RxNorm: 077046 1 Capsule(s) PO daily TAKE ONE CAPSULE BY MOUTH ONCE A DAY 04/17/2016 12/19/2016 Inactive Benicar 40 mg tablet RxNorm: 776902 1 Tablet(s) PO daily 201507/16/2016 Inactive she can do 90 days if she wants to Lexapro 5 mg tablet RxNorm: 020595 1 Tablet(s) PO QPM 201506/07/2016 Inactive Colace 100 mg capsule RxNorm: 0161015 1 Capsule(s) PO daily No Stop Date Active hydrocodone 5 mg-acetaminophen 325 mg tablet RxNorm: 450232 1/2 Tablet(s) PO QID as needed 01/18/2016 02/16/2016 Inactive Synthroid 50 mcg tablet RxNorm: 054943 1 Tablet(s) PO daily TAKE ONE TABLET BY MOUTH DAILY 01/18/2016 07/15/2016 Inactive Synthroid 50 mcg tablet RxNorm: 476803 Tablet(s) TAKE ONE TABLET BY MOUTH DAILY 12/23/2015 01/17/2016 Inactive Benicar 40 mg tablet RxNorm: 864943 1 Tablet(s) PO daily 201512/12/2015 Inactive Benicar 40 mg tablet RxNorm: 192545 1 Tablet(s) PO daily 201504/10/2016 Inactive meloxicam 15 mg tablet RxNorm: 725149 TAKE ONE TABLET BY MOUTH ONE TIME A DAY 11/12/2015 06/08/2016 Inactive meloxicam 15 mg tablet RxNorm: 852830 Tablet(s) TAKE ONE TABLET BY MOUTH ONE TIME A DAY 11/11/2015 11/11/2015 Inactive Lasix 40 mg tablet RxNorm: 709529 Tablet(s) TAKE ONE TABLET BY MOUTH EVERY DAY 10/19/2015 12/19/2016 Inactive diltiazem ER 180 mg capsule,extended release RxNorm: 728604 1 Capsule(s) daily TAKE ONE CAPSULE BY MOUTH ONCE A DAY 09/27/2015 04/16/2016 Inactive Crestor 10 mg tablet RxNorm: 900093 1 Tablet(s) PO Sun09/17/2015 07/12/2016 Inactive [SAVINGS FOR UNINSURED PATIENTS -- BIN:313987, PCN: ASPROD1, Group: [facility], ID# [id number], Process claim through [email or web address], for questions: [phone]. THIS IS NOT INSURANCE.] hydrocodone 5 mg-acetaminophen 325 mg tablet RxNorm: 522376 1-2 Tablet(s) PO Q6 PRN 09/09/2015 10/08/2015 Inactive Micardis 80 mg tablet RxNorm: 016426 1 Tablet(s) PO daily TAKE ONE TABLET BY MOUTH DAILY 08/23/2015 12/12/2015 Inactive Klor-Con 10 mEq tablet,extended release RxNorm: 405111 Tablet(s) TAKE ONE TABLET BY MOUTH TWICE A DAY 08/23/20152015 Inactive Synthroid 50 mcg tablet RxNorm: 861246 TAKE ONE TABLET BY MOUTH DAILY 07/06/2015 12/22/2015 Inactive meloxicam 15 mg tablet RxNorm: 913026 TAKE ONE TABLET BY MOUTH ONE TIME A DAY 06/22/2015 11/10/2015 Inactive Singulair 10 mg tablet RxNorm: 278118 TAKE ONE TABLET BY MOUTH EVERY DAY 05/18/2015 07/16/2016 Inactive Micardis 80 mg tablet RxNorm: 094500 TAKE ONE TABLET BY MOUTH DAILY 02/22/2015 05/04/2015 Inactive gabapentin 600 mg tablet RxNorm: 890068 1 Tablet(s) PO HS as needed 01/15/2015 01/09/2016 Inactive [SAVINGS FOR NON-COVERED DRUGS -- BIN:131774, PCN: ASPROD1, Group : [id number], ID# [id number], Questions: . THIS IS NOT INSURANCE.] diltiazem ER 180 mg capsule,extended release RxNorm: 554327 TAKE ONE CAPSULE BY MOUTH ONCE A DAY 01/07/2015 09/26/2015 Inactive meloxicam 15 mg tablet RxNorm: 989849 TAKE ONE TABLET BY MOUTH ONE TIME A DAY 11/09/2014 05/07/2015 Inactive gabapentin 600 mg tablet RxNorm: 865873 1 Tablet(s) PO HS as needed 10/13/2014 01/14/2015 Inactive [SAVINGS FOR UNINSURED PATIENTS -- BIN:680423, PCN: ASPROD1, Group: [id number], ID# [id number], Process claim through [email or web address], for questions: [phone]. THIS IS NOT INSURANCE.] omeprazole 20 mg tablet,delayed release RxNorm: 193797 1 Tablet(s) PO daily 10/13/2014 11/11/2014 Inactive Synthroid 50 mcg tablet RxNorm: 786871 TAKE ONE TABLET BY MOUTH EVERY DAY 10/12/2014 01/09/2015 Inactive Synthroid 50 mcg tablet RxNorm: 174260 Tablet(s) TAKE ONE TABLET BY MOUTH EVERY DAY 10/12/2014 10/11/2014 Inactive [SAVINGS FOR UNINSURED PATIENTS -- BIN:261967, PCN: ASPROD1, Group: [id number], ID# [id number], Process claim through [employer], for questions: . THIS IS NOT INSURANCE.] Lasix 40 mg tablet RxNorm: 461149 Tablet(s) PO TAKE ONE TABLET BY MOUTH TWICE A DAY FOR 3 DAYS, THEN RESUME ONE DAILY EXCEPT ON WEDNESDAYS AND FRIDAYS TAKE ONE TWICE DAILY 09/22/2014 No Stop Date Active [SAVINGS FOR UNINSURED PATIENTS -- BIN: 241781, PCN: ASPROD1, Group: [id number], ID# [id number], Process claim through [employer] , for questions: . THIS IS NOT INSURANCE.] Lasix 40 mg tablet RxNorm: 970653 TAKE ONE TABLET BY MOUTH EVERY DAY 09/22/2014 10/18/2015 Inactive Crestor 10 mg tablet RxNorm: 143691 1 Tablet(s) PO Sun08/28/2014 04/24/2015 Inactive [SAVINGS FOR UNINSURED PATIENTS -- BIN:167849, PCN: ASPROD1, Group: [id number], ID# [id number], Process claim through [email or web address], for questions: [phone]. THIS IS NOT INSURANCE.] Crestor 10 mg tablet RxNorm: 860930 1 Tablet(s) PO Sun08/28/2014 08/27/2014 Inactive [SAVINGS FOR UNINSURED PATIENTS -- BIN:186924, PCN: ASPROD1, Group: [id number], ID# [id number], Process claim through [email or web address], for questions: [phone]. THIS IS NOT INSURANCE.] Micardis 80 mg tablet RxNorm: 382830 TAKE ONE TABLET BY MOUTH EVERY DAY 08/24/2014 12/21/2014 Inactive Zithromax Z-Hebert 250 mg tablet RxNorm: 810976 Tablet(s) PO UD 08/18/2014 Inactive 2 tabs day 1, 1 tabs days 2-5 Anusol-HC 25 mg suppository RxNorm: 0302196 INSERT 1 RECTALLY DAILY NEEDED 07/13/2014 10/10/2014 Inactive Klor-Con 10 mEq tablet,extended release RxNorm: 292011 TAKE ONE TABLET BY MOUTH TWICE A DAY 06/18/2014 12/14/2014 Inactive Lomotil 2.5 mg-0.025 mg tablet RxNorm: 6128287 1 Tablet(s) PO PRN after each loose stool max 8 per day 06/15/201410/12 Inactive one after each loose bm limit 8 per day albuterol sulfate HFA 90 mcg/actuation aerosol inhaler RxNorm: 2793245 1 or2 Puff( s) INH Q4 PRN as needed 05/11/20142013 Inactive albuterol sulfate HFA 90 mcg/actuation aerosol inhaler RxNorm: 9522081 1 or2 Puff( s) INH Q4 PRN as needed 05/11/20142016 Inactive Premarin 0.625 mg/gram vaginal cream RxNorm: 308474 1/2 Gram(s) VAG every other day 05/11/2014 12/06/2014 Inactive Premarin 0.625 mg/gram vaginal cream RxNorm: 424011 1/2 Gram(s) VAG every other day 05/11/2014 05/10/2014 Inactive cefdinir 300 mg capsule RxNorm: 647874 1 Capsule(s) PO BID 06/201405/16/2014 Inactive Rocephin 500 mg solution for injection RxNorm: 614626 1 Milliliter(s) Inj 05/07/2014 05/07/2014 Inactive Singulair 10 mg tablet RxNorm: 750270 TAKE ONE TABLET BY MOUTH EVERY DAY 04/30/2014 10/12/2014 Inactive meloxicam 15 mg tablet RxNorm: 268363 1 Tablet(s) PO daily 11/08/2014 Inactive Crestor 10 mg tablet RxNorm: 653158 1 Tablet(s) PO Sun TAKE ONE TABLET BY MOUTH EVERY DAY 04/16/2014 08/27/2014 Inactive Synthroid 50 mcg tablet RxNorm: 346521 TAKE ONE TABLET BY MOUTH EVERY DAY 04/02/2014 09/28/2014 Inactive diltiazem ER 180 mg capsule,extended release RxNorm: 724315 1 Capsule(s) PO daily 01/05/2014 12/30/2014 Inactive Pennsaid 1.5 % topical drops RxNorm: 681383 Drop(s) TOP APPLY 15 - 20 DROPS TOPICALLY FOUR TIMES A DAY 12/29/2013 Inactive Rocephin 500 mg solution for injection RxNorm: 712461 Inj 12/2612/26/2013 Inactive Kenalog 40 mg/mL suspension for injection RxNorm: 9135933 Milliliter(s) Inj 12/26/2013 12/26/2013 Inactive Micardis 80 mg tablet RxNorm: 661017 Tablet(s) PO TAKE ONE TABLET BY MOUTH EVERY DAY 12/15/2013 08/23/2014 Inactive nystatin 100,000 unit/mL oral suspension RxNorm: 241506 4 Unit(s) PO QID swish and swallow 11/12/2013 12/09/2013 Inactive Kenalog 40 mg/mL suspension for injection RxNorm: 3712386 Milliliter(s) Inj 11/12/2013 11/12/2013 Inactive Lasix 40 mg tablet RxNorm: 526752 Tablet(s) PO TAKE ONE TABLET BY MOUTH TWICE A DAY FOR 3 DAYS, THEN RESUME ONE DAILY EXCEPT ON WEDNESDAYS AND FRIDAYS TAKE ONE TWICE DAILY 10/30/2013 09/21/2014 Inactive Lasix 40 mg tablet RxNorm: 282068 1 Tablet(s) PO daily 201310/29/2013 Inactive Rocephin 500 mg solution for injection RxNorm: 542014 1 Milliliter(s) Inj 10/09/2013 10/09/2013 Inactive metoprolol succinate ER 25 mg tablet,extended release 24 hr RxNorm: 648565 Tablet (s) PO TAKE ONE TABLET BY MOUTH EVERY DAY 10/02/2013 01/06/2014 Inactive metoprolol succinate ER 25 mg tablet,extended release 24 hr RxNorm: 635570 Tablet (s) PO TAKE ONE TABLET BY MOUTH EVERY DAY 08/04/2013 10/01/2013 Inactive Synthroid 50 mcg tablet RxNorm: 216584 Tablet(s) PO TAKE ONE TABLET BY MOUTH EVERY DAY 07/14/2013 04/01/2014 Inactive gabapentin 600 mg tablet RxNorm: 051314 1 Tablet(s) PO Q8 PRN 06/11/2013 06/11/2013 Inactive gabapentin 600 mg tablet RxNorm: 136847 1 Tablet(s) PO Q8 PRN 06/11/2013 03/07/2014 Inactive Neurontin 600 mg tablet RxNorm: 706164 1 Tablet(s) PO Q8 PRN 06/11/2013 Inactive Anusol-HC 25 mg suppository RxNorm: 6785805 Suppository RTL INSERT 1 RECTALLY DAILY NEEDED 04/24/2013 07/12/2014 Inactive metoprolol succinate ER 25 mg tablet,extended release 24 hr RxNorm: 182863 1 Tablet(s) PO daily 04/21/2013 08/03/2013 Inactive Premarin 0.625 mg/gram Vaginal Cream RxNorm: 113338 1/2 Gram(s) VAG every other day 04/03/2013 10/29/2013 Inactive Klor-Con 10 mEq tablet,extended release RxNorm: 289139 1 Tablet(s) PO daily 03/26/2013 03/20/2014 Inactive Klor-Con 10 mEq tablet,extended release RxNorm: 078308 1 Tablet(s) PO BID 03/24/2013 03/23/2013 Inactive Klor-Con 10 mEq tablet,extended release RxNorm: 029640 1 Tablet(s) PO BID 03/24/2013 03/25/2013 Inactive Klor-Con 10 mEq tablet,extended release RxNorm: 430824 1 Tablet(s) PO BID 03/24/2013 03/23/2013 Inactive Augmentin 875 mg-125 mg tablet RxNorm: 745575 1 Tablet(s) PO BID 03/12/2013 03/18/2013 Inactive Augmentin 875 mg-125 mg tablet RxNorm: 425065 1 Tablet(s) PO BID 03/12/2013 03/11/2013 Inactive ciprofloxacin 500 mg tablet RxNorm: 022275 1 Tablet(s) PO BID 03/11/2013 03/17/2013 Inactive ciprofloxacin 500 mg tablet RxNorm: 948858 1 Tablet(s) PO BID 03/11/2013 03/10/2013 Inactive Crestor 10 mg tablet RxNorm: 622355 1 Tablet(s) PO daily 201202/09/2013 Inactive Crestor 10 mg tablet RxNorm: 876171 Tablet(s) PO TAKE ONE TABLET BY MOUTH EVERY DAY 02/10/2013 04/15/2014 Inactive Singulair 10 mg tablet RxNorm: 857357 Tablet(s) PO TAKE ONE TABLET BY MOUTH EVERY DAY 02/04/2013 04/29/2014 Inactive Kenalog 40 mg/mL Susp for Injection RxNorm: 0366637 1 Milliliter(s) Inj 11/21/2012 11/21/2012 Inactive Pennsaid 1.5 % topical drops RxNorm: 207221 15-20 Drop(s) TOP QID 10/28/2012 11/21/2013 Inactive Micardis 80 mg tablet RxNorm: 545476 1 Tablet(s) PO daily 201210/22/2013 Inactive put this on file please, quantitiy increase Pennsaid 1.5 % Topical Drops RxNorm: 824634 15-20 Drop(s) TOP QID 10/28/2012 10/27/2012 Inactive diltiazem ER 180 mg capsule,extended release RxNorm: 072789 1 Capsule(s) PO daily 10/14/2012 10/08/2013 Inactive Pyridium 200 mg tablet RxNorm: 8815662 1 Tablet(s) PO Q8 PRN 10/12/2014 Inactive Flagyl 500 mg tablet RxNorm: 296909 1 Tablet(s) PO TID 201209/10/2012 Inactive Macrobid 100 mg capsule RxNorm: 288796 1 Capsule(s) PO BID 03/201309/02/2012 Inactive Macrobid 100 mg capsule RxNorm: 990866 1 Capsule(s) PO BID 03/201309/09/2012 Inactive sulfamethoxazole-trimethoprim 800 mg-160 mg tablet RxNorm: 426224 1 Tablet(s) PO BID 08/05/2012 08/14/2012 Inactive Lasix 40 mg tablet RxNorm: 008823 1 Tablet(s) PO BID pt is taking extra lasix x 3 days, then every sunday and sunday take two lasix pills. 07/15/2012 07/09/2013 Inactive Synthroid 50 mcg tablet RxNorm: 285533 1 Tablet(s) PO daily 07/09/2013 Inactive do not substitute the generic levothyroxine for the synthroid brand name.....she needs brand name synthroid. Klor-Con 10 mEq tablet,extended release RxNorm: 525006 1 Tablet(s) PO BID 07/15/2012 03/23/2013 Inactive Singulair 10 mg tablet RxNorm: 668439 1 Tablet(s) PO daily 02/03/2013 Inactive Lexapro 10 mg tablet RxNorm: 676870 1/2 Tablet(s) PO daily 06/03/2013 Inactive ProAir HFA 90 mcg/actuation Aerosol Inhaler RxNorm: 659952 2 INH Q6 PRN 04/23/2012 01/17/2016 Inactive Lexapro 10 mg tablet RxNorm: 851996 1/2 Tablet(s) PO daily 05/09/2012 Inactive metoprolol succinate ER 50 mg tablet,extended release 24 hr RxNorm: 834752 1 Tablet(s) PO daily 04/09/2012 04/09/2012 Inactive Klor-Con 10 10 mEq tablet,extended release RxNorm: 028424 1 Tablet(s) PO daily 04/01/2012 07/14/2012 Inactive metoprolol succinate ER 50 mg tablet,extended release 24 hr RxNorm: 493414 1/2 Tablet(s) PO BID 03/11/2012 04/08/2012 Inactive clonidine 0.1 mg Tab RxNorm: 540578 1 Tablet(s) PO BID 201103/12/2012 Inactive clonidine 0.1 mg Tab RxNorm: 060239 1 Tablet(s) PO BID 201102/18/2012 Inactive Micardis 80 mg Tab RxNorm: 574668 1 Tablet(s) PO daily 201102/13/2012 Inactive Micardis 80 mg tablet RxNorm: 658101 1 Tablet(s) PO daily 201110/27/2012 Inactive Synthroid 50 mcg tablet RxNorm: 323337 1 Tablet(s) PO daily 07/14/2012 Inactive Tekturna 300 mg Tab RxNorm: 5216558 1 Tablet(s) PO daily 02/1103/12/2012 Inactive Lasix 40 mg Tab RxNorm : 971649 1 Tablet(s) PO daily 12/18/2011 12/17/2011 Inactive Lasix 40 mg tablet RxNorm: 156244 1 Tablet(s) PO daily 201107/14/2012 Inactive Anusol-HC 25 mg Suppository RxNorm: 2634760 1 Suppository RTL QDAY PRN 12/04/2011 04/19/2012 Inactive lactobacillus acidophilus Cap RxNorm: 1 Capsule(s) PO BID 11/20/2011 Inactive lactobacillus acidophilus Cap RxNorm: 1 Capsule(s) PO BID 11/20/2011 Inactive Cipro 500 mg Tab RxNorm: 417473 1 Tablet(s) PO BID 201103/12/2012 Inactive lactobacillus acidophilus Cap RxNorm: 1 Capsule(s) PO BID 11/27/2011 Inactive lactobacillus acidophilus Cap RxNorm: 1 Capsule(s) PO BID 11/20/2011 Inactive Cipro 500 mg Tab RxNorm: 677375 1 Tablet(s) PO BID 201111/20/2011 Inactive Lexapro 10 mg Tab RxNorm: 992292 1 Tablet(s) PO daily 201111/12/2011 Inactive Lexapro 10 mg tablet RxNorm: 920051 1 Tablet(s) PO daily 201104/18/2012 Inactive amlodipine 10 mg Tab RxNorm: 677923 1 Tablet(s) PO daily 201112/03/2011 Inactive amlodipine 5 mg Tab RxNorm: 494732 1 Tablet(s) PO daily 201112/04/2011 Inactive Rocephin 500 mg Solution for Injection RxNorm: 591881 Inj 08/3009/20/2011 Inactive metoprolol succinate ER 25 mg 24 hr Tab RxNorm: 332122 1 Tablet(s) PO QHS 08/30/2011 09/20/2011 Inactive Ambien 10 mg Tab RxNorm: 957996 1 Tablet(s) PO HS PRN 08/3004/19/2012 Inactive Augmentin 875 mg-125 mg Tab RxNorm: 333964 1 Tablet(s) PO BID 08/25/2011 09/20/2011 Inactive Augmentin 875 mg-125 mg Tab RxNorm: 783748 1 Tablet(s) PO BID 08/25/2011 08/24/2011 Inactive Rocephin 500 mg Solution for Injection RxNorm: 746671 Inj 08/2308/23/2011 Inactive Levaquin 500 mg Tab RxNorm: 530730 1 Tablet(s) PO daily 201008/30/2011 Inactive chlordiazepoxide-clidinium 5 mg-2.5 mg Cap RxNorm: 161458 1 Capsule(s) PO BID 07/10/2011 04/19/2012 Inactive q 12 hours prn metoprolol succinate ER 100 mg 24 hr Tab RxNorm: 516601 1 Tablet(s) PO daily 05/29/2011 03/12/2012 Inactive Synthroid 50 mcg Tab RxNorm: 163328 1 Tablet(s) PO daily 201008/12/2011 Inactive Ambien CR 12.5 mg Tab RxNorm: 849979 1 Tablet(s) PO HS PRN 05/0908/30/2011 Inactive Ambien 10 mg Tab RxNorm: 888320 1 Tablet(s) PO QHS 201006/07/2011 Inactive Nexium 40 mg Cap RxNorm: 755226 1 Capsule(s) PO daily 05/0403/12/2012 Inactive the patient had tried pepcid, otc priolosec, RX omperazole, failed them all Bactrim DS 800 mg-160 mg Tab RxNorm: 238384 1 Tablet(s) PO BID 04/19/2011 08/30/2011 Inactive triamcinolone acetonide 40 mg/mL Susp for Injection RxNorm: 0139446 1 Milliliter(s ) Inj UD 04/19/2011 04/19/2011 Inactive aspirin 81 mg Tab, Delayed Release RxNorm: 403696 1 Tablet(s) PO daily No Start Date Active Centrum Silver Ultra Women's oral RxNorm: 27615 oral No Start Date Active Probiotic & Acidophilus oral RxNorm: oral No Start Date Active Fish Oil 1,000 mg Cap RxNorm: 1 Capsule(s) PO daily No Start Date Active Tylenol Extra Strength 500 mg tablet RxNorm: 948120 1 Tablet(s) PO BID as needed for pain No Start Date Active 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 Device RxNorm: Miscellaneous QHS sleep apnea, 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 No Start Date Active Cymbalta 30 mg Cap RxNorm: 249087 1 Capsule(s) PO daily No Start Date 03/12/2012 Inactive Nexium 40 mg Cap RxNorm: 274006 Capsule(s) PO No Start Date 05/03/2011 Inactive Benadryl 25 mg capsule RxNorm: 5965254 1 Capsule(s) PO QHS No Start Date 01/03/2017 Inactive Klor-Con 10 10 mEq tablet,extended release RxNorm: 291833 1 Tablet(s) PO daily No Start Date 03/31/2012 Inactive Metamucil Oral RxNorm : Oral No Start Date 10/12/2014 Inactive amlodipine 10 mg Tab RxNorm: 118831 1 Tablet(s) PO daily No Start Date 10/08/2011 Inactive Norvasc 5 mg tablet RxNorm: 968211 1 Tablet(s) PO daily No Start Date 10/12/2014 Inactive Lasix 40 mg Tab RxNorm : 313490 1 Tablet(s) PO daily No Start Date 12/17/2011 Inactive diltiazem ER (XR/XT) 240 mg capsule,extended release, controlled RxNorm: 968818 1 Capsule(s) PO daily No Start Date Inactive Synthroid 50 mcg Tab RxNorm: 250103 1 Tablet(s) PO daily No Start Date 05/14/2011 Inactive Flagyl 500 mg tablet RxNorm: 216556 1 Tablet(s) PO No Start Date 09/03/2012 Inactive one after each loose bm limit 8 per day Boniva 150 mg Tab RxNorm: 086860 1 Tablet(s) PO UD No Start Date 08/30/2011 Inactive monthly Singulair 10 mg tablet RxNorm: 989120 1 Tablet(s) PO daily No Start Date 06/11/2012 Inactive folic acid Oral RxNorm : Oral No Start Date 03/12/2012 Inactive potassium chloride ER 10 mEq tablet,extended release RxNorm: 547402 1 Tablet(s) PO daily No Start Date 01/03/2017 Inactive Librium 10 mg Cap RxNorm: 348474 Capsule(s) PO UD No Start Date 03/12/2012 Inactive q 12 hours prn Crestor 10 mg tablet RxNorm: 062521 1 Tablet(s) PO daily No Start Date 02/09/2013 Inactive multivitamin Cap RxNorm: 1 Capsule(s) PO daily No Start Date 01/17/2016 Inactive metoprolol succinate ER 100 mg 24 hr Tab RxNorm: 085066 1 Tablet(s) PO daily No Start Date 05/28/2011 Inactive Zithromax Z-Hebert 250 mg tablet RxNorm: 695247 Tablet(s) PO UD No Start Date 12/22/2015 Inactive diltiazem ER 180 mg capsule,extended release RxNorm: 952957 1 Capsule(s) PO daily No Start Date 10/13/2012 Inactive Tekturna 300 mg Tab RxNorm: 5085887 1 Tablet(s) PO daily samples No Start Date 02/11/2012 Inactive Xanax 0.25 mg tablet RxNorm: 736397 1-2 Tablet(s) PO QHS as needed insomnia No Start Date 07/24/2017 Inactive ProAir HFA 90 mcg/actuation Aerosol Inhaler RxNorm: 726966 2 INH Q6 PRN No Start Date 04/22/2012 Inactive chlordiazepoxide-clidinium 5 mg-2.5 mg Cap RxNorm: 218759 1 Capsule(s) PO PRN No Start Date 07/09/2011 Inactive q 12 hours prn Butrans 5 mcg/hour Transderm Patch RxNorm: 453422 1 Patch TD weekly No Start Date 05/26/2012 Inactive Lactobacillus acidophilus tablet RxNorm: 4 Tablet(s) PO daily No Start Date 01/03/2017 Inactive Librax (with clidinium) 5 mg-2.5 mg capsule RxNorm: 706386 1 Capsule(s) PO BID No Start Date 04/18/2012 Inactive Nexium 40 mg capsule,delayed release RxNorm: 037119 Capsule(s) PO PRN No Start Date 10/12/2014 Inactive Premarin 0.625 mg/gram Vaginal Cream RxNorm: 969644 Gram(s) VAG No Start Date 03/12/2012 Inactive three times a week, small amt to vaginal tissuesample given metoprolol succinate ER 50 mg tablet,extended release 24 hr RxNorm: 603060 1 Tablet(s) PO daily No Start Date 2011 Inactive Zithromax Z-Hebert 250 mg tablet RxNorm: 866876 Tablet(s) PO UD No Start Date 08/13/2014 Inactive albuterol sulfate HFA 90 mcg/actuation aerosol inhaler RxNorm: 3178739 1 or2 Puff( s) INH Q4 PRN No Start Date 05/10/2014 Inactive Xanax 0.25 mg Tab RxNorm: 196537 1/2-1 Tablet(s) PO Q8 PRN No Start Date 03/12/2012 Inactive metoprolol succinate ER 25 mg tablet,extended release 24 hr RxNorm: 200009 1 Tablet(s) PO daily No Start Date 2012 Inactive Zithromax Z-Hebert 250 mg tablet RxNorm: 137430 1 Tablet(s) PO UD No Start Date 08/10/2016 Inactive Z PACK DIRECTED calcium carbonate 600 mg (1,500 mg) Tab RxNorm: 207534 1 Tablet(s) PO BID No Start Date 01/03/2017 Inactive albuterol sulfate HFA 90 mcg/Actuation Aerosol Inhaler RxNorm: 333047 1-2 Puff(s) INH Q4 PRN No Start Date 03/11/2012 Inactive Vitamin D3 2,000 unit capsule RxNorm: 774277 1 Capsule(s) PO daily No Start Date 10/12/2014 Inactive Colace 100 mg Cap RxNorm: 7074430 1 Capsule(s) PO BID No Start Date 01/17/2016 Inactive Neurontin 600 mg tablet RxNorm: 605862 1 Tablet(s) PO Q8 PRN No Start Date 06/09/2013 Inactive Lomotil 2.5 mg-0.025 mg tablet RxNorm: 6032968 1 Tablet(s) PO No Start Date 06/14/2014 Inactive one after each loose bm limit 8 per day Micardis 80 mg Tab RxNorm: 642917 1 Tablet(s) PO daily No Start Date 12/03/2011 Inactive Pyridium 200 mg tablet RxNorm: 2458812 1 Tablet(s) PO Q8 PRN No Start Date 09/10/2012 Inactive Medication Administered Medication Codes Instructions Start Date Status Kenalog 40 mg/mL suspension for injection RxNorm: 7055375 1Milliliter 08/09/2017 No longer Active ceftriaxone 500 mg solution for injection RxNorm: 6017638 08/09/2017 No longer Active Kenalog 40 mg/mL suspension for injection RxNorm: 9162297 1Milliliter 01/04/2017 No longer Active Kenalog 40 mg/mL suspension for injection RxNorm: 9491063 Milliliter 08/23/2016 No longer Active Rocephin 500 mg solution for injection RxNorm: 525138 1Milliliter 05/07/2014 No longer Active Kenalog 40 mg/mL suspension for injection RxNorm: 5414880 Milliliter 12/26/2013 No longer Active Rocephin 500 mg solution for injection RxNorm: 349859 12/26/2013 No longer Active Kenalog 40 mg/mL suspension for injection RxNorm: 9493123 Milliliter 11/12/2013 No longer Active Rocephin 500 mg solution for injection RxNorm: 726957 1Milliliter 10/09/2013 No longer Active Kenalog 40 mg/mL Susp for Injection RxNorm: 5316623 1Milliliter 11/21/2012 No longer Active Rocephin 500 mg Solution for Injection RxNorm: 137639 08/23/2011 No longer Active triamcinolone acetonide 40 mg/mL Susp for Injection RxNorm: 2640362 1MilliliterUD 04/19/2011 No longer Active Immunizations Vaccine Codes Date Status Influenza CVX: 141 06/16/2016 completed Pneumococcal CVX: 133 06/16/2016 completed PPD Unknown 08/07/2014 completed Influenza CVX: 141 05/20/2014 completed Influenza CVX: 141 06/11/2013 completed zostavax CVX: 121 05/08/2013 completed Influenza CVX: 141 05/03/2012 completed Influenza Unknown 06/10/2010 completed Assessments Condition Codes Effective Dates Cough ICD-10: R05 ICD-9: 786.2 08/09/2017 Acute upper respiratory infection, unspecified ICD-10: J06.9 ICD-9: 465.9 08/09/2017 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 ICD-9: 244.8 05/07/2017 Essential (primary) hypertension ICD-10: I10 ICD-9: 401.1 05/07/2017 Mixed hyperlipidemia ICD-10: E78.2 ICD-9: 272.2 05/07/2017 Encounter for general adult medical examination with abnormal findings ICD-10: Z00.01 ICD-9: V70.0 04/12/2017 Urinary tract infection, site not specified ICD-10: N39.0 ICD-9: 599.0 02/05/2017 Gastro-esophageal reflux 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 ICD-10 : K21.9 ICD-9: 530.81 02/02/2017 Localized edema ICD-10: R60.0 ICD-9: 782.3 02/02/2017 Acute recurrent maxillary sinusitis ICD-10: J01.01 ICD-9: 461.0 01/15/2017 Pain in left knee ICD-10: M25.562 ICD-9: 719.46 01/04/2017 Mixed hyperlipidemia ICD-10: E78.2 ICD-9: 272.4 01/04/2017 Allergic rhinitis due to pollen ICD-10: J30.1 ICD-9: 477.9 01/04/2017 Major depressive disorder, recurrent, moderate ICD-10: F33.1 ICD-9: 296.32 09/07/2016 Acute maxillary sinusitis, unspecified ICD-10: J01.00 ICD-9: 461.0 08/23/2016 Generalized anxiety disorder ICD-10: F41.1 ICD-9: 300.02 06/08/2016 Essential (primary) hypertension ICD-10: I10 ICD-9: 401.9 [...] Visit Reason For Visit Effective Dates Notes cough 08/09/2017 hypertension 05/07/2017 Annual Medicare Wellness [...] 91.8 fl 03/09/2016 Cbc With Differential Ord2 [place]% 8.5 % 03/09/2016 Cbc With Differential Ord2 [...] 2.38 K/ul 03/09/2016 Cbc With Differential Ord2 [place] ABS# 0.8 K/ul 03/09/2016 Cbc With Differential Ord2 Eos ABS# 0.2 K/ul 03/09/2016 Cbc With Differential Ord2 Baso ABS# 0.1 K/ul 03/09/2016 Comp Metabolic Ozo622 NA 138 mEq/L 03/09/2016 Comp Metabolic Cww734 K 4.5 mEq/L 03/09/2016 Comp Metabolic Pyb446 CL 100 mEq/L 03/09/2016 Comp Metabolic Saf238 CO2 33.0 mEq/L 03/09/2016 Comp Metabolic Ynk849 ANION GAP 10 03/09/2016 Comp Metabolic Gif274 GLUCOSE 94 mg/dL 03/09/2016 Comp Metabolic Tpy860 Creat 0.6 mg/dL 03/09/2016 Comp Metabolic Fer523 eGFR 106 ml/min/1.73m2 03/09/2016 Comp Metabolic Jvb793 BUN 10 mg/dL 03/09/2016 Comp Metabolic Nmh904 B/C Ratio 17.2 Ratio 03/09/2016 Comp Metabolic Otw112 CALCIUM 9.2 mg/dL 03/09/2016 Comp Metabolic Ejm425 ALK PHOS 64 U/L 03/09/2016 Comp Metabolic Bku532 AST(SGOT) 20 U/L 03/09/2016 Comp Metabolic Fnt124 ALT(SGPT) 11 U/L 03/09/2016 Comp Metabolic Ehh582 BILI T 0.9 mg/dL 03/09/2016 Comp Metabolic Esg388 ALBUMIN 4.0 g/dL 03/09/2016 Comp Metabolic Zrh071 TPRO 6.1 g/dL 03/09/2016 Comp Metabolic Jzs866 GLOB 2.1 g/dL 03/09/2016 Comp Metabolic Qlu631 A/G Ratio 1.9 Ratio 03/09/2016 Comp Metabolic Kzu511 Osmo 274 mOsmo 03/09/2016 Free T4 Iuz567 FREE T4 0.90 ng/dL 03/09/2016 Lipid Ord30 [...] hTSH II 3.25 uIU/mL 09/07/2015 Free T4 Gks226 FREE T4 0.79 ng/dL 09/07/2015 Comp Metabolic Ggn080 NA 137 mEq/L 09/07/2015 Comp Metabolic Bdt988 K 4.0 mEq/L 09/07/2015 Comp Metabolic Oat680 CL 98 mEq/L 09/07/2015 Comp Metabolic Xvd480 CO2 30.0 mEq/L 09/07/2015 Comp Metabolic Utd677 ANION GAP 13 09/07/2015 Comp Metabolic Jtt507 GLUCOSE 101 mg/dL 09/07/2015 Comp Metabolic Bcs405 Creat 0.6 mg/dL 09/07/2015 Comp Metabolic Yvg262 eGFR 111 ml/min/1.73m2 09/07/2015 Comp Metabolic Ubp907 BUN 16 mg/dL 09/07/2015 Comp Metabolic Hgu945 B/C Ratio 28.6 Ratio 09/07/2015 Comp Metabolic Zki399 CALCIUM 9.4 mg/dL 09/07/2015 Comp Metabolic Hln745 ALK PHOS 68 U/L 09/07/2015 Comp Metabolic Wxe878 AST(SGOT) 16 U/L 09/07/2015 Comp Metabolic Qil646 ALT(SGPT) 12 U/L 09/07/2015 Comp Metabolic Aty162 BILI T 0.9 mg/dL 09/07/2015 Comp Metabolic Hao990 ALBUMIN 4.1 g/dL 09/07/2015 Comp Metabolic Wri344 TPRO 6.5 g/dL 09/07/2015 Comp Metabolic Aza074 GLOB 2.4 g/dL 09/07/2015 Comp Metabolic Qdx920 A/G Ratio 1.7 Ratio 09/07/2015 Comp Metabolic Ugb143 Osmo 275 mOsmo 09/07/2015 Cbc With Differential [...] Differential Ord2 RDW 14.4 % 09/07/2015 TSH 0906613 TSH 0.920 uIU/ML 08/28/2014 CBC 0739278 WBC 12.5 10e9/L 08/28/2014 CBC 5657504 RBC 3.44 10e12/L 08/28/2014 CBC 2300706 HGB 10.3 g/dL 08/28/2014 CBC 8071320 HCT DET 33.9 % 08/28/2014 CBC 4404452 MCV 98.5 fL 08/28/2014 CBC 2800475 MCH 29.9 pg 08/28/2014 CBC 2734077 MCHC 30.4 g/dL 08/28/2014 CBC 8102473 PLT 412 10e9/L 08/28/2014 CBC 5482998 MPV 10.2 fL 08/28/2014 CBC 4268250 NNEKA % 68.5 % 08/28/2014 CBC 7137826 LY % 20.8 % 08/28/2014 CBC 2056451 MON % 9.9 % 08/28/2014 CBC 9124074 EOS % 0.6 % 08/28/2014 CBC 7307809 BASO % 0.2 % 08/28/2014 CBC 7352498 RDW 15.8 % 08/28/2014 CBC 0166663 ABS NNEKA 8.56 10e9/L 08/28/2014 CBC 5348991 ABS LYMPH 2.60 10e9/L 08/28/2014 CBC 5710019 ABS MONO 1.24 10e9/L 08/28/2014 CBC 9111525 ABS EOS 0.08 10e9/L 08/28/2014 CBC 3949921 ABS BASO 0.03 10e9/L 08/28/2014 CBC 4638492 RDW-SD 55.4 fL 08/28/2014 GFR CALC 6245627 GFR AA >60 ML/MIN 08/28/2014 GFR CALC 7919452 GFR NON-AA >60 ML/MIN 08/28/2014 LIPID GRP HDL TEST 69 MG/DL 08/28/2014 LIPID GRP TRIG 158 MG/DL 08/28/2014 LIPID GRP TEST LDL 96 MG/DL 08/28/2014 LIPID GRP CHOL 197 MG/DL 08/28/2014 LIPID GRP RCHOL/HDL 2.86 RATIO 08/28/2014 LIPID GRP NON-HDL CH 128 MG/DL 08/28/2014 CHEM 14 0468423 AST 14 U/L 08/28/2014 CHEM 14 7330095 ALT 13 IU/L 08/28/2014 CHEM 14 2499194 BUN 15 MG/DL 08/28/2014 CHEM 14 4407949 ALBUMIN 4.2 GM/DL 08/28/2014 CHEM 14 4375551 CHLORIDE 98 MMOL/L 08/28/2014 CHEM 14 9170998 BILI TOT 1.2 MG/DL 08/28/2014 CHEM 14 7257837 ALK PHOS 68 U/L 08/28/2014 CHEM 14 7579134 SODIUM 137 MMOL/L 08/28/2014 CHEM 14 7052143 CREATININE 0.68 MG/DL 08/28/2014 CHEM 14 7126101 CALCIUM 9.1 MG/DL 08/28/2014 CHEM 14 6818569 POTASSIUM 3.7 MMOL/L 08/28/2014 CHEM 14 5420885 PROT TOT 6.2 GM/DL 08/28/2014 CHEM 14 2327411 GLUCOSE 91 MG/DL 08/28/2014 CHEM 14 2560091 BICARB 31 MMOL/L 08/28/2014 CHEM 14 8400879 ANION GAP 8 MEQ/L 08/28/2014 FREE T4 6102264 FREE T4 1.44 NG/DL 08/28/2014 LIPID GRP HDL TEST 73 MG/DL 04/16/2014 LIPID GRP TRIG 131 MG/DL 04/16/2014 LIPID GRP TEST LDL 99 MG/DL 04/16/2014 LIPID GRP CHOL 198 MG/DL 04/16/2014 LIPID GRP RCHOL/HDL 2.71 RATIO 04/16/2014 LIPID GRP NON-HDL CH 125 MG/DL 04/16/2014 CHEM 14 2260219 AST 17 U/L 04/14/2014 CHEM 14 3661920 ALT 17 IU/L 04/14/2014 CHEM 14 8477190 BUN 15 MG/DL 04/14/2014 CHEM 14 8717931 ALBUMIN 4.3 GM/DL 04/14/2014 CHEM 14 5269251 CHLORIDE 96 MMOL/L 04/14/2014 CHEM 14 3382889 BILI TOT 0.9 MG/DL 04/14/2014 CHEM 14 7407649 ALK PHOS 65 U/L 04/14/2014 CHEM 14 9853691 SODIUM 135 MMOL/L 04/14/2014 CHEM 14 6384018 CREATININE 0.69 MG/DL 04/14/2014 CHEM 14 2889322 CALCIUM 9.5 MG/DL 04/14/2014 CHEM 14 7406353 POTASSIUM 4.1 MMOL/L 04/14/2014 CHEM 14 8054451 PROT TOT 6.6 GM/DL 04/14/2014 CHEM 14 2329641 GLUCOSE 104 MG/DL 04/14/2014 CHEM 14 8738510 BICARB 34 MMOL/L 04/14/2014 CHEM 14 0145414 ANION GAP 5 MEQ/L 04/14/2014 A1C HPLC 8946626 A1C HPLC 16607-4 5.0 % 04/14/2014 TSH 4778994 TSH 2.140 uIU/ML 04/14/2014 FREE T4 8531146 FREE T4 1.56 NG/DL 04/14/2014 GFR CALC 3190543 GFR AA >60 ML/MIN 04/14/2014 GFR CALC 9520978 GFR NON-AA >60 ML/MIN 04/14/2014 CBC 9791049 WBC 12.8 10e9/L 04/14/2014 CBC 4299348 RBC 4.44 10e12/L 04/14/2014 CBC 2082340 HGB 13.2 g/dL 04/14/2014 CBC 4681787 HCT DET 41.4 % 04/14/2014 CBC 2832913 MCV 93.2 fL 04/14/2014 CBC 8229361 MCH 29.7 pg 04/14/2014 CBC 0677583 MCHC 31.9 g/dL 04/14/2014 CBC 1886455 PLT 383 10e9/L 04/14/2014 CBC 0728870 MPV 10.1 fL 04/14/2014 CBC 3272147 NNEKA % 65.5 % 04/14/2014 CBC 6556650 LY % 23.0 % 04/14/2014 CBC 4900636 MON % 9.9 % 04/14/2014 CBC 8701572 EOS % 1.3 % 04/14/2014 CBC 8787304 BASO % 0.3 % 04/14/2014 CBC 9683656 RDW 13.7 % 04/14/2014 CBC 9156952 ABS NNEKA 8.38 10e9/L 04/14/2014 CBC 1291197 ABS LYMPH 2.94 10e9/L 04/14/2014 CBC 1827921 ABS MONO 1.27 10e9/L 04/14/2014 CBC 6085018 ABS EOS 0.17 10e9/L 04/14/2014 CBC 0963773 ABS BASO 0.04 10e9/L 04/14/2014 CBC 9996970 RDW-SD 45.9 fL 04/14/2014 A1C HPLC 1283006 A1C HPLC 89566-5 4.9 % 11/13/2013 CHEM 14 5097008 AST 15 U/L 11/12/2013 CHEM 14 2831914 ALT 14 IU/L 11/12/2013 CHEM 14 7046724 BUN 14 MG/DL 11/12/2013 CHEM 14 9790851 ALBUMIN 4.3 GM/DL 11/12/2013 CHEM 14 5899093 CHLORIDE 101 MMOL/L 11/12/2013 CHEM 14 0815126 BILI TOT 0.9 MG/DL 11/12/2013 CHEM 14 6667003 ALK PHOS 67 U/L 11/12/2013 CHEM 14 3941563 SODIUM 139 MMOL/L 11/12/2013 CHEM 14 2423403 CREATININE 0.67 MG/DL 11/12/2013 CHEM 14 7166252 CALCIUM 9.5 MG/DL 11/12/2013 CHEM 14 4077267 POTASSIUM 4.1 MMOL/L 11/12/2013 CHEM 14 2660240 PROT TOT 6.5 GM/DL 11/12/2013 CHEM 14 9166245 GLUCOSE 102 MG/DL 11/12/2013 CHEM 14 0045894 BICARB 30 MMOL/L 11/12/2013 CHEM 14 1308277 ANION GAP 8 MEQ/L 11/12/2013 GFR CALC 0062343 GFR AA >60 ML/MIN 11/12/2013 GFR CALC 9849716 GFR NON-AA >60 ML/MIN 11/12/2013 TSH 3327695 TSH 2.445 uIU/ML 11/12/2013 FREE T4 6389949 FREE T4 1.09 NG/DL 11/12/2013 CBC 5037146 WBC 7.6 10e9/L 11/12/2013 CBC 8510372 RBC 4.42 10e12/L 11/12/2013 CBC 9871466 HGB 13.1 g/dL 11/12/2013 CBC 8933920 HCT DET 41.2 % 11/12/2013 CBC 3084222 MCV 93.2 fL 11/12/2013 CBC 8589685 MCH 29.6 pg 11/12/2013 CBC 1505989 MCHC 31.8 g/dL 11/12/2013 CBC 9199119 PLT 314 10e9/L 11/12/2013 CBC 6158054 MPV 10.4 fL 11/12/2013 CBC 1590893 NNEKA % 59.8 % 11/12/2013 CBC 1753463 LY % 28.1 % 11/12/2013 CBC 1707876 MON % 9.5 % 11/12/2013 CBC 5247171 EOS % 1.8 % 11/12/2013 CBC 4097448 BASO % 0.8 % 11/12/2013 CBC 3673789 RDW 13.8 % 11/12/2013 CBC 2023058 ABS NNEKA 4.54 10e9/L 11/12/2013 CBC 2528805 ABS LYMPH 2.14 10e9/L 11/12/2013 CBC 0029421 ABS MONO 0.72 10e9/L 11/12/2013 CBC 1990667 ABS EOS 0.14 10e9/L 11/12/2013 CBC 1341317 ABS BASO 0.06 10e9/L 11/12/2013 CBC 7824662 RDW-SD 46.0 fL 11/12/2013 LIPID GRP HDL TEST 66 MG/DL 11/12/2013 LIPID GRP TRIG 130 MG/DL 11/12/2013 LIPID GRP TEST LDL 108 MG/DL 11/12/2013 LIPID GRP CHOL 200 MG/DL 11/12/2013 LIPID GRP RCHOL/HDL 3.03 RATIO 11/12/2013 HS ENE ZOS 6106637 HS ENE ZOS IMMUNE 04/04/2013 A1C 2219491 A1C HPLC 16071-8 5.2 % 04/03/2013 GFR CALC 1566515 GFR AA >60 ML/MIN 03/31/2013 GFR CALC 3224613 GFR NON-AA >60 ML/MIN 03/31/2013 TSH 7907843 TSH 2.689 uIU/ML 03/31/2013 LIPID GRP HDL TEST 63 MG/DL 03/31/2013 LIPID GRP TRIG 157 MG/DL 03/31/2013 LIPID GRP TEST LDL 98 MG/DL 03/31/2013 LIPID GRP CHOL 192 MG/DL 03/31/2013 LIPID GRP RCHOL/HDL 3.05 RATIO 03/31/2013 FREE T4 8660400 FREE T4 1.19 NG/DL 03/31/2013 CHEM 14 4057106 AST 16 U/L 03/31/2013 CHEM 14 0728787 ALT 12 IU/L 03/31/2013 CHEM 14 1784367 BUN 17 MG/DL 03/31/2013 CHEM 14 4353813 ALBUMIN 4.5 GM/DL 03/31/2013 CHEM 14 8014717 CHLORIDE 98 MMOL/L 03/31/2013 CHEM 14 0569023 BILI TOT 0.7 MG/DL 03/31/2013 CHEM 14 5148489 ALK PHOS 53 U/L 03/31/2013 CHEM 14 7796812 SODIUM 137 MMOL/L 03/31/2013 CHEM 14 0642881 CREATININE 0.66 MG/DL 03/31/2013 CHEM 14 3111495 CALCIUM 9.6 MG/DL 03/31/2013 CHEM 14 0553685 POTASSIUM 4.2 MMOL/L 03/31/2013 CHEM 14 5619405 PROT TOT 6.7 GM/DL 03/31/2013 CHEM 14 7700397 GLUCOSE 101 MG/DL 03/31/2013 CHEM 14 9368088 BICARB 33 MMOL/L 03/31/2013 CHEM 14 3593032 ANION GAP 6 MEQ/L 03/31/2013 CBC 0275579 WBC 7.5 10e9/L 03/31/2013 CBC 5861086 RBC 4.39 10e12/L 03/31/2013 CBC 8696070 HGB 13.0 g/dL 03/31/2013 CBC 2625593 HCT DET 40.2 % 03/31/2013 CBC 0143973 MCV 91.6 fL 03/31/2013 CBC 7776362 MCH 29.6 pg 03/31/2013 CBC 0808965 MCHC 32.3 g/dL 03/31/2013 CBC 0966683 PLT 305 10e9/L 03/31/2013 CBC 0640893 MPV 10.4 fL 03/31/2013 CBC 2731558 NNEKA % 56.8 % 03/31/2013 CBC 0220525 LY % 30.3 % 03/31/2013 CBC 3519559 MON % 9.8 % 03/31/2013 CBC 6739587 EOS % 2.3 % 03/31/2013 CBC 3456637 BASO % 0.8 % 03/31/2013 CBC 6094449 RDW 13.2 % 03/31/2013 CBC 0694644 ABS NNEKA 4.26 10e9/L 03/31/2013 CBC 4374441 ABS LYMPH 2.27 10e9/L 03/31/2013 CBC 4434150 ABS MONO 0.74 10e9/L 03/31/2013 CBC 6664715 ABS EOS 0.17 10e9/L 03/31/2013 CBC 7798011 ABS BASO 0.06 10e9/L 03/31/2013 CBC 9534043 RDW-SD 43.2 fL 03/31/2013 LIPID GRP HDL TEST 49 MG/DL 09/11/2012 LIPID GRP TRIG 134 MG/DL 09/11/2012 LIPID GRP TEST LDL 81 MG/DL 09/11/2012 LIPID GRP 4414561 CHOL 157 MG/DL 09/11/2012 LIPID GRP RCHOL/HDL 3.20 RATIO 09/11/2012 TSH 9520726 TSH 2.118 uIU/ML 09/11/2012 CBC 2767584 WBC 7.5 10e9/L 09/11/2012 CBC 3990602 RBC 3.99 10e12/L 09/11/2012 CBC 4330222 HGB 11.7 g/dL 09/11/2012 CBC 8751335 HCT DET 37.7 % 09/11/2012 CBC 4963749 MCV 94.5 fL 09/11/2012 CBC 7154301 MCH 29.3 pg 09/11/2012 CBC 6908367 MCHC 31.0 g/dL 09/11/2012 CBC 6407843 PLT 384 10e9/L 09/11/2012 CBC 6478196 MPV 11.0 fL 09/11/2012 CBC 0060462 NNEKA % 51.7 % 09/11/2012 CBC 5472722 LY % 35.2 % 09/11/2012 CBC 4596930 MON % 10.4 % 09/11/2012 CBC 1098009 EOS % 2.3 % 09/11/2012 CBC 9943705 BASO % 0.4 % 09/11/2012 CBC 1731421 RDW 14.2 % 09/11/2012 CBC 5867006 ABS NNEKA 3.88 10e9/L 09/11/2012 CBC 9899406 ABS LYMPH 2.64 10e9/L 09/11/2012 CBC 9415503 ABS MONO 0.78 10e9/L 09/11/2012 CBC 4707560 ABS EOS 0.17 10e9/L 09/11/2012 CBC 5747938 ABS BASO 0.03 10e9/L 09/11/2012 CBC 3853447 RDW-SD 47.1 fL 09/11/2012 CHEM 14 4904579 AST 16 U/L 09/11/2012 CHEM 14 8407465 ALT 15 IU/L 09/11/2012 CHEM 14 2978906 BUN 11 MG/DL 09/11/2012 CHEM 14 4406767 ALBUMIN 4.2 GM/DL 09/11/2012 CHEM 14 7273407 CHLORIDE 101 MMOL/L 09/11/2012 CHEM 14 1643100 BILI TOT 0.8 MG/DL 09/11/2012 CHEM 14 3260946 ALK PHOS 57 U/L 09/11/2012 CHEM 14 2801166 SODIUM 141 MMOL/L 09/11/2012 CHEM 14 1869089 CREATININE 0.62 MG/DL 09/11/2012 CHEM 14 9170332 CALCIUM 9.5 MG/DL 09/11/2012 CHEM 14 4230810 POTASSIUM 4.7 MMOL/L 09/11/2012 CHEM 14 4289632 PROT TOT 6.6 GM/DL 09/11/2012 CHEM 14 5886789 GLUCOSE 90 MG/DL 09/11/2012 CHEM 14 8482320 BICARB 32 MMOL/L 09/11/2012 CHEM 14 0802093 ANION GAP 8 MEQ/L 09/11/2012 A1C HPLC 4258987 A1C HPLC 26656-6 4.5 % 09/11/2012 GFR CALC 2931963 GFR AA >60 ML/MIN 09/11/2012 GFR CALC 4668855 GFR NON-AA >60 ML/MIN 09/11/2012 FREE T4 0206833 FREE T4 1.30 NG/DL 09/11/2012 BMP GLUCOSE 93 MG/DL 04/16/2012 BMP CREATININE 0.64 MG/DL 04/16/2012 BMP BUN 12 MG/DL 04/16/2012 BMP SODIUM 139 MMOL/L 04/16/2012 BMP POTASSIUM 4.1 MMOL/L 04/16/2012 BMP CHLORIDE 99 MMOL/L 04/16/2012 BMP BICARB 32 MMOL/L 04/16/2012 BMP ANION GAP 8 MEQ/L 04/16/2012 BMP CALCIUM 9.8 MG/DL 04/16/2012 CBC 7095180 WBC 8.5 10e9/L 04/16/2012 CBC 4248308 RBC 3.98 10e12/L 04/16/2012 CBC 6094653 HGB 11.5 g/dL 04/16/2012 CBC 6376768 HCT DET 36.7 % 04/16/2012 CBC 6764946 MCV 92.2 fL 04/16/2012 CBC 3372915 MCH 28.9 pg 04/16/2012 CBC 4025470 MCHC 31.3 g/dL 04/16/2012 CBC 3443880 PLT 321 10e9/L 04/16/2012 CBC 1021782 MPV 10.2 fL 04/16/2012 CBC 7377225 NNEKA % 64.3 % 04/16/2012 CBC 6435908 LY % 24.3 % 04/16/2012 CBC 6223363 MON % 9.0 % 04/16/2012 CBC 4835732 EOS % 1.9 % 04/16/2012 CBC 1491693 BASO % 0.5 % 04/16/2012 CBC 1206283 RDW 13.7 % 04/16/2012 CBC 9561631 ABS NNEKA 5.47 10e9/L 04/16/2012 CBC 0638076 ABS LYMPH 2.07 10e9/L 04/16/2012 CBC 4563279 ABS MONO 0.77 10e9/L 04/16/2012 CBC 2104094 ABS EOS 0.16 10e9/L 04/16/2012 CBC 9137058 ABS BASO 0.04 10e9/L 04/16/2012 CBC 5264937 RDW-SD 44.6 fL 04/16/2012 GFR CALC 5723334 GFR AA >60 ML/MIN 04/16/2012 GFR CALC 7745671 GFR NON-AA >60 ML/MIN 04/16/2012 URINALYSIS NONAUTO W/O SCOPE 90558 Specific [place] 1.015 DateTime(Free Text in Aprima) URINALYSIS NONAUTO W/O SCOPE 59680 PH 6.0 DateTime(Free Text in Apr[employer]) URINALYSIS NONAUTO W/O SCOPE 08287 GLUCOSE neg DateTime( Free Text in Apr[employer]) URINALYSIS NONAUTO W/O SCOPE 09755 Protein neg DateTime( Free Text in [employer]) URINALYSIS NONAUTO W/O SCOPE 98288 Blood 1+ DateTime(Free Text in [employer]) URINALYSIS NONAUTO W/O SCOPE 02708 Bilirubin neg DateTime(Free Text in [employer]) URINALYSIS NONAUTO W/O SCOPE 22393 Ketones neg DateTime( Free Text in [employer]) URINALYSIS NONAUTO W/O SCOPE 22040 Urobilinogen neg DateTime(Free Text in [employer]) URINALYSIS NONAUTO W/O SCOPE 53726 Nitrite positive DateTime(Free Text in Aprima) URINALYSIS NONAUTO W/O SCOPE 96377 Leukocytes 1+ DateTime(Free Text in [employer]) UA 48582 Specific [place] 1.015 DateTime(Free Text in Aprima ) UA 16222 PH 5 DateTime(Free Text in Novima) UA 72785 GLUCOSE neg DateTime(Free Text in Aprima) UA 83843 Protein neg DateTime(Free Text in Aprima) UA 91485 Blood neg DateTime(Free Text in Aprima) UA 57971 Bilirubin neg DateTime(Free Text in Aprima) UA 28171 Ketones neg DateTime(Free Text in Aprima) UA 31736 Urobilinogen neg DateTime(Free Text in Aprima) UA 17769 Nitrite neg DateTime(Free Text in Aprima) UA 49358 Leukocytes neg DateTime(Free Text in Aprima) URINALYSIS NONAUTO W/O SCOPE 21533 Specific [place] 1.010 DateTime(Free Text in Aprima) URINALYSIS NONAUTO W/O SCOPE 07341 PH 5.0 DateTime(Free Text in Aprima) URINALYSIS NONAUTO W/O SCOPE 30748 GLUCOSE NEG DateTime( Free Text in Apr[employer]) URINALYSIS NONAUTO W/O SCOPE 53165 Protein NEG DateTime( Free Text in Apr[employer]) URINALYSIS NONAUTO W/O SCOPE 79192 Blood NEG DateTime(Free Text in Apr[employer]) URINALYSIS NONAUTO W/O SCOPE 70333 Bilirubin NEG DateTime(Free Text in Apr[employer]) URINALYSIS NONAUTO W/O SCOPE 11329 Ketones NEG DateTime( Free Text in Apr[employer]) URINALYSIS NONAUTO W/O SCOPE 23141 Urobilinogen NEG DateTime(Free Text in Apr[employer]) URINALYSIS NONAUTO W/O SCOPE 30662 Nitrite NEG DateTime( Free Text in Apr[employer]) URINALYSIS NONAUTO W/O SCOPE 61173 Leukocytes ++ DateTime(Free Text in Aprima) URINALYSIS NONAUTO W/O SCOPE 46184 Specific [place] 1.010 DateTime(Free Text in Aprima) URINALYSIS NONAUTO W/O SCOPE 77546 PH 6.0 DateTime(Free Text in Aprima) URINALYSIS NONAUTO W/O SCOPE 72723 GLUCOSE NEG DateTime( Free Text in Apr[employer]) URINALYSIS NONAUTO W/O SCOPE 06152 Protein NEG DateTime( Free Text in Apr[employer]) URINALYSIS NONAUTO W/O SCOPE 18961 Blood NEG DateTime(Free Text in Aprima) URINALYSIS NONAUTO W/O SCOPE 98339 Bilirubin NEG DateTime(Free Text in Aprima) URINALYSIS NONAUTO W/O SCOPE 80876 Ketones NEG DateTime( Free Text in Apr[employer]) URINALYSIS NONAUTO W/O SCOPE 22302 Urobilinogen NEG DateTime(Free Text in Aprima) URINALYSIS NONAUTO W/O SCOPE 88671 Nitrite NEG DateTime( Free Text in Aprima) URINALYSIS NONAUTO W/O SCOPE 80387 Leukocytes NEG DateTime(Free Text in Aprima) URINALYSIS NONAUTO W/O SCOPE 14990 Specific [place] 1.010 DateTime(Free Text in Aprima) URINALYSIS NONAUTO W/O SCOPE 56871 PH 5 DateTime(Free Text in Aprima) URINALYSIS NONAUTO W/O SCOPE 83381 GLUCOSE neg DateTime( Free Text in Apr[employer]) URINALYSIS NONAUTO W/O SCOPE 94001 Protein neg DateTime( Free Text in Apr[employer]) URINALYSIS NONAUTO W/O SCOPE 80954 Blood neg DateTime(Free Text in Aprima) URINALYSIS NONAUTO W/O SCOPE 00690 Bilirubin neg DateTime(Free Text in Aprima) URINALYSIS NONAUTO W/O SCOPE 71080 Ketones neg DateTime( Free Text in Apr[employer]) URINALYSIS NONAUTO W/O SCOPE 05124 Urobilinogen neg DateTime(Free Text in Aprima) URINALYSIS NONAUTO W/O SCOPE 91260 Nitrite neg DateTime( Free Text in Aprima) URINALYSIS NONAUTO W/O SCOPE 45717 Leukocytes 1+ DateTime(Free Text in Apr[employer]) URINALYSIS NONAUTO W/O SCOPE 90275 Specific [place] 1.015 DateTime(Free Text in Aprima) URINALYSIS NONAUTO W/O SCOPE 98964 PH 5 DateTime(Free Text in Apr[employer]) URINALYSIS NONAUTO W/O SCOPE 80861 GLUCOSE neg DateTime( Free Text in Apr[employer]) URINALYSIS NONAUTO W/O SCOPE 70282 Protein neg DateTime( Free Text in Apr[employer]) URINALYSIS NONAUTO W/O SCOPE 26105 Blood neg DateTime(Free Text in Apr[employer]) URINALYSIS NONAUTO W/O SCOPE 79323 Bilirubin neg DateTime(Free Text in Apr[employer]) URINALYSIS NONAUTO W/O SCOPE 65669 Ketones neg DateTime( Free Text in Apr[employer]) URINALYSIS NONAUTO W/O SCOPE 56054 Urobilinogen neg DateTime(Free Text in Apr[employer]) URINALYSIS NONAUTO W/O SCOPE 81977 Nitrite neg DateTime( Free Text in Apr[employer]) URINALYSIS NONAUTO W/O SCOPE 38351 Leukocytes neg DateTime(Free Text in Apr[employer]) URINALYSIS NONAUTO W/O SCOPE 15563 Specific [place] 1.015 DateTime(Free Text in Aprima) URINALYSIS NONAUTO W/O SCOPE 16742 PH 7 DateTime(Free Text in Aprima) URINALYSIS NONAUTO W/O SCOPE 30461 GLUCOSE DateTime( Free Text in Aprima) URINALYSIS NONAUTO W/O SCOPE 04049 Protein DateTime( Free Text in Aprima) URINALYSIS NONAUTO W/O SCOPE 30724 Blood DateTime(Free Text in Apr) URINALYSIS NONAUTO W/O SCOPE 97965 Bilirubin DateTime( Free Text in Aprima) URINALYSIS NONAUTO W/O SCOPE 23652 Ketones DateTime( Free Text in Aprima) URINALYSIS NONAUTO W/O SCOPE 88111 Urobilinogen DateTime (Free Text in Aprima) URINALYSIS NONAUTO W/O SCOPE 51726 Nitrite DateTime( Free Text in Aprima) URINALYSIS NONAUTO W/O SCOPE 49067 Leukocytes DateTime( Free Text in Aprima) UA 78363 Specific [place] 6 DateTime(Free Text in Aprima) UA 41215 PH 1.020 DateTime(Free Text in Aprima) UA 99309 GLUCOSE N DateTime(Free Text in Aprima) UA 07662 Protein N DateTime(Free Text in Aprima) UA 20238 Blood N DateTime(Free Text in Aprima) UA 37758 Bilirubin N DateTime(Free Text in Aprima) UA 36427 Ketones N DateTime(Free Text in Aprima) UA 50402 Urobilinogen N DateTime(Free Text in Aprima) UA 78658 Nitrite POSITIVE DateTime(Free Text in Apr) UA 11518 Leukocytes SMALL DateTime(Free Text in ) Review of Systems System Result Effective Dates Constitutional recent illness 08/09/2017 Constitutional No anorexia [...] Result Effective Dates Notes Full Exam - ENT Constitutional general appearance [...] CPT-4: 3288F 04/12/2017 THER/PROPH/DIAG INJ SC/IM CPT-4: 10836 01/04/2017 TRIAMCINOLONE ACET INJ NOS CPT-4: J3301 01/04/2017 TRIAMCINOLONE ACET INJ NOS CPT-4: J3301 08/23/2016 THER/PROPH/DIAG INJ SC/IM CPT-4: 73668 08/23/2016 ROUTINE VENIPUNCTURE CPT-4: 76381 08/28/2014 ADMIN INFLUENZA VIRUS VAC Assigned to/Yancy Howell CPT-4: [id number] 05/20/2014 FLU VAC NO PRSV 4 PREMA 3 YRS+ CPT-4: 53366 05/20/2014 URINALYSIS NONAUTO W/O SCOPE CPT-4: 24123 05/07/2014 ROCEPHIN, PER 250 MG CPT-4: J0696 05/07/2014 ROUTINE VENIPUNCTURE CPT-4: 67487 04/14/2014 DESTRUCT PREMALG LESION CPT-4: 41216 01/27/2014 DESTRUCT PREMALG LES 2-14 CPT-4: 35200 01/27/2014 ROCEPHIN, PER 250 MG CPT-4: J0696 12/26/2013 TRIAMCINOLONE ACET INJ NOS CPT-4: J3301 12/26/2013 TRIAMCINOLONE ACET INJ NOS CPT-4: J3301 11/12/2013 ROUTINE VENIPUNCTURE CPT-4: 35228 11/12/2013 ROCEPHIN, PER 250 MG CPT-4: J0696 10/09/2013 ROUTINE VENIPUNCTURE CPT-4: 62203 03/31/2013 URINALYSIS NONAUTO W/O SCOPE CPT-4: 26127 03/21/2013 TRIAMCINOLONE ACET INJ NOS CPT-4: J3301 11/21/2012 URINALYSIS NONAUTO W/O SCOPE CPT-4: 57165 09/30/2012 URINALYSIS NONAUTO W/O SCOPE CPT-4: 52945 09/11/2012 ROUTINE VENIPUNCTURE CPT-4: 12025 09/11/2012 PRESCRIP TRANSMIT VIA ERX SY CPT-4: G8553 08/05/2012 ADMIN INFLUENZA VIRUS VAC CPT-4: G0008 05/03/2012 FLULAVAL VACC, 3 YRS & >, IM CPT-4: Q2036 05/03/2012 EXC TR-EXT B9+ANA 0.6-1 CM CPT-4: 55254 04/23/2012 ROUTINE VENIPUNCTURE CPT-4: 81553 04/16/2012 ROUTINE VENIPUNCTURE CPT-4: 66255 12/21/2011 PRESCRIP TRANSMIT VIA ERX SY CPT-4: G8553 12/04/2011 URINALYSIS NONAUTO W/O SCOPE CPT-4: 85671 12/01/2011 URINALYSIS NONAUTO W/O SCOPE CPT-4: 17102 11/20/2011 PRESCRIP TRANSMIT VIA ERX SY CPT-4: G8553 09/20/2011 URINALYSIS NONAUTO W/O SCOPE CPT-4: 44743 09/06/2011 ROCEPHIN, PER 250 MG CPT-4: J0696 08/30/2011 THER/PROPH/DIAG INJ SC/IM CPT-4: 27904 08/30/2011 ROUTINE VENIPUNCTURE CPT-4: 65993 08/30/2011 PRESCRIP TRANSMIT VIA ERX SY CPT-4: G8553 08/30/2011 ROCEPHIN, PER 250 MG CPT-4: J0696 08/23/2011 THER/PROPH/DIAG INJ SC/IM CPT-4: 52832 08/23/2011 URINALYSIS NONAUTO W/O SCOPE CPT-4: 99456 08/23/2011 PRESCRIP TRANSMIT VIA ERX SY CPT-4: G8553 08/23/2011 ROUTINE VENIPUNCTURE CPT-4: 69922 05/04/2011 PRESCRIP TRANSMIT VIA ERX SY CPT-4: G8553 05/04/2011 TRIAMCINOLONE ACET INJ NOS CPT-4: J3301 04/19/2011 THER/PROPH/DIAG INJ SC/IM CPT-4: 97110 04/19/2011 PRESCRIP TRANSMIT VIA ERX SY CPT-4: G8553 04/19/2011 Vital Signs Date Vital 08/09/2017 Blood Pressure 1: 132/82 Code : 8480-6 BMI: 39.3 Code : 34770-6 Heart Rate 1 : 85 bpm Height: 5'3" SpO2: 98% Temperature: 36.6 (C) / 97.8 (F) Weight: 222 lbs 05/07/2017 Blood Pressure 1: 118/70 Code : 8480-6 BMI: 38.8 Code : 90868-4 Heart Rate 1 : 58 bpm Height: 5'3" SpO2: 97% Weight: 219 lbs 04/12/2017 Blood Pressure 1: 140/72 Code : 8480-6 BMI: 38.9 Code : 79353-0 Heart Rate 1 : 78 bpm Height: [...] Code : 8480-6 BMI: 39.7 Code : 41696-8 Heart Rate 1 : 58 bpm Height: 5'3" SpO2: 95% Weight: 224 lbs 01/15/2017 Blood Pressure 1: 148/70 Code : 8480-6 Heart Rate 1: 65 bpm Height: SpO2: 96% Weight: 01/04/2017 Blood Pressure 1: 132/60 Code : 8480-6 BMI: 39.9 Code : 85495-6 Heart Rate 1 : 57 bpm Height: 5'3" SpO2: 95% Weight: 225 lbs 09/07/2016 Blood Pressure 1: 144/70 Code : 8480-6 BMI: 37.6 Code : 41034-3 Heart Rate 1 : 50 bpm Height: 5'3" SpO2: 96% Weight: 212 lbs 07/06/2016 Blood Pressure 1: 134/64 Code : 8480-6 BMI: 38.6 Code : 40017-5 Heart Rate 1 : 60 bpm Height: 5'3" SpO2: 94% Weight: 218 lbs 06/16/2016 Blood Pressure 1: 140/80 Code : 8480-6 06/08/2016 Blood Pressure 1: 150/76 Code : 8480-6 BMI: 38.4 Code : 26375-9 Heart Rate 1 : 60 bpm Height: 5'3" SpO2: 96% Weight: 217 lbs 04/17/2016 Blood Pressure 1: 150/70 Code : 8480-6 Heart Rate 1: 63 bpm SpO2: 93% 04/06/2016 Blood Pressure 1: 154/52 Code : 8480-6 BMI: 38.6 Code : 30089-6 Heart Rate 1 : 54 bpm Height: 5'3" SpO2: 95% Weight: 218 lbs 03/10/2016 Blood Pressure 1: 160/64 Code : 8480-6 03/09/2016 Blood Pressure 1: 152/78 Code : 8480-6 BMI: 38.8 Code : 24500-1 Heart Rate 1 : 63 bpm Height: 5'3" SpO2: 92% Weight: 219 lbs 01/18/2016 Blood Pressure 1: 144/72 Code : 8480-6 BMI: 39.0 Code : 81977-9 Heart Rate 1 : 68 bpm Height: 5'3" SpO2: 93% Weight: 220 lbs 09/09/2015 Blood Pressure 1: 126/68 Code : 8480-6 BMI: 39.0 Code : 76471-6 Height: 5'3" SpO2: 94% Weight: 220 lbs 12/25/2014 Blood Pressure 1: 138/68 Code : 8480-6 BMI: 37.7 Code : 35645-3 Heart Rate 1 : 68 bpm Height: 5'3" SpO2: 97% Weight: 213 lbs 10/13/2014 Blood Pressure 1: 118/68 Code : 8480-6 BMI: 39.3 Code : 52582-1 Heart Rate 1 : 54 bpm Height: 5'3" SpO2: 98% Weight: 222 lbs 08/28/2014 Blood Pressure 1: 140/62 Code : 8480-6 Heart Rate 1: 60 bpm Weight: 212 lbs 08/07/2014 Blood Pressure 1: 138/62 Code : 8480-6 05/20/2014 Temperature: 35.5 (C) / 95.9 (F) 05/07/2014 Blood Pressure 1: 148/70 Code : 8480-6 BMI: 38.6 Code : 11727-7 Heart Rate 1 : 61 bpm Height: 5'3" SpO2: 96% Weight: 218 lbs 04/16/2014 Blood Pressure 1: 142/68 Code : 8480-6 BMI: 37.6 Code : 94046-1 Heart Rate 1 : 58 bpm Height: 5'3" Weight: 212 lbs 01/27/2014 Blood Pressure 1: 122/62 Code : 8480-6 Blood Pressure 2: 118/60 Code: 8480-6 Heart Rate 1: 60 bpm Weight: 210 lbs 01/21/2014 Blood Pressure 1: 130/62 Code : 8480-6 BMI: 37.2 Code : 04992-8 Heart Rate 1 : 68 bpm Height: 5'3" SpO2: 97% Weight: 210 lbs 01/07/2014 Blood Pressure 1: 108/58 Code : 8480-6 BMI: 36.8 Code : 98451-5 Heart Rate 1 : 44 bpm Height: 5'3" Weight: 208 lbs 12/26/2013 Blood Pressure 1: 122/60 Code : 8480-6 BMI: 37.6 Code : 84356-6 Heart Rate 1 : 56 bpm Height: [...] Code : 8480-6 BMI: 36.7 Code : 65322-9 Heart Rate 1 : 76 bpm Height: 5'3" Weight: 207 lbs 01/06/2013 Blood Pressure 1: 130/70 Code : 8480-6 BMI: 36.5 Code : 45098-8 Heart Rate 1 : 72 bpm Height: [...] Code : 8480-6 BMI: 38.3 Code : 01394-1 Heart Rate 1 : 60 bpm Height: [...] Code : 8480-6 BMI: 38.3 Code : 39095-8 Heart Rate 1 : 60 bpm Height: 5'3" Weight: 216 lbs 12/25/2011 Blood Pressure 1: 142/76 Code : 8480-6 Heart Rate 1: 60 bpm Respiratory Rate : 20 bpm Weight: 213 lbs 12/04/2011 Blood Pressure 1: 142/64 Code : 8480-6 BMI: 38.6 Code : 28566-7 Heart Rate 1 : 59 bpm Height: 5'3" Respiratory Rate: 20 bpm SpO2: 96% Weight: 218 lbs 09/20/2011 Blood Pressure 1: 166/68 Code : 8480-6 BMI: 36.5 Code : 02503-0 Heart Rate 1 : 50 bpm Height: [...] Code : 8480-6 BMI: 36.8 Code : 08971-3 Heart Rate 1 : 64 bpm Height: 5'3" Respiratory Rate: 16 bpm Weight: 211 lbs 05/04/2011 Blood Pressure 1: 142/58 Code : 8480-6 BMI: 38.0 Code : 66256-4 Heart Rate 1 : 56 bpm Height: 5'2" Respiratory Rate: 12 bpm Weight: 211 lbs 04/19/2011 Blood Pressure 1: 138/51 Code : 8480-6 BMI: 35.5 Code : 60135-0 Heart Rate 1 : 66 bpm Height: 5'4" Weight: 210 lbs Functional Status No Functional Status data History of Present Illness Symptom Name Status Result Effective Date Notes cough Pertinent Findings hoarseness 08/09/2017 None cough [...] data Encounters Encounter Performer Location Codes Date [id number]) [id number] EST. PATIENT, LEVEL III Diagnosis: Cough[ICD10: R05] Diagnosis: Acute upper respiratory infection, unspecified[ICD10: J06.9] Chaparrita Flanagan MD, [facility] CPT-4: 75643 08/09/2017 ([id number]) 80327 EST. PATIENT, LEVEL IV Diagnosis: Essential (primary) hypertension[ICD10: I10] Diagnosis: Mixed hyperlipidemia[ICD10: E78.2] Diagnosis: Atrophy of thyroid (acquired)[ICD10: E03.4] [facility] CPT-4: 59688 05/07/2017 ([id number]) Miscellaneous no charge Diagnosis: Essential (primary) hypertension[ICD10: I10] Concepción Flanagan MD, [facility] CPT-4: 00245 02/15/2017 ([id number]) Miscellaneous no charge Diagnosis: Cough[ICD10: R05] Diagnosis: Urinary tract infection, site not specified[ICD10: N39.0] Chaparrita Flanagan MD , [facility] CPT-4: 20370 02/05/2017 ([id number]) 75285 EST. PATIENT, LEVEL III Diagnosis: Gastro-esophageal reflux 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[ICD10: K21.9] Diagnosis: Urinary tract infection, site not specified[ICD10: N39.0] Diagnosis: Localized edema[ICD10: R60.0] Chaparrita Flanagan MD, [facility] CPT-4: 83740 02/02/2017 ([id number]) 46678 EST. PATIENT, LEVEL III Diagnosis: Acute recurrent maxillary sinusitis[ICD10: J01.01] Diagnosis: Cough[ICD10: R05] Chaparrita Flanagan MD, [facility] CPT-4: 27783 01/15/2017 ([id number]) 41535 EST. PATIENT, LEVEL IV Diagnosis: Essential (primary) hypertension[ICD10: I10] Diagnosis: Mixed hyperlipidemia[ICD10: E78.2] Diagnosis: Pain in left knee[ICD10: M25.562] Diagnosis: Allergic rhinitis due to pollen[ICD10: J30.1] Concepción Flanagan MD, [facility] CPT-4: 56735 01/04/2017 ([id number]) 71400 EST. PATIENT, LEVEL IV Diagnosis: Essential (primary) hypertension[ICD10: I10] Diagnosis: Major depressive disorder, recurrent, moderate[ICD10: F33.1] Concepción Flanagan MD, [facility] CPT-4: 33597 09/07/2016 ([id number]) 93649 EST. PATIENT, LEVEL III Diagnosis: Essential (primary) hypertension[ICD10: I10] oCncepción Flanagan MD, [facility] CPT-4: 96044 07/06/2016 ([id number]) Miscellaneous no charge Diagnosis: Essential (primary) hypertension[ICD10: I10] Hayley Flanagan MD, [facility] CPT-4: 29085 06/16/2016 ([id number]) 60722 EST. PATIENT, LEVEL III Diagnosis: Essential (primary) hypertension[ICD10: I10] Diagnosis: Generalized anxiety disorder[ICD10: F41.1] Concepción Flanagan MD, [facility] CPT-4: 35505 06/08/2016 ([id number]) Miscellaneous no charge Diagnosis: Essential (primary) hypertension[ICD10: I10] Hayley Flanagan MD, [facility] CPT-4: 62414 04/17/2016 ([id number]) 12826 EST. PATIENT, LEVEL IV Diagnosis: Essential (primary) hypertension[ICD10: I10] Diagnosis: Localized edema[ICD10: R60.0] Concepción Flanagan MD, [facility] CPT- 4: 79371 04/06/2016 ([id number]) Miscellaneous no charge Diagnosis: Essential (primary) hypertension[ICD10: I10] Chaparrita Flanagan MD, [facility] CPT-4: 86339 03/10/2016 ([id number]) 47392 EST. PATIENT, LEVEL IV Diagnosis: Essential (primary) hypertension[ICD10: I10] Diagnosis: Mixed hyperlipidemia[ICD10: E78.2] Diagnosis: Hypothyroidism, unspecified[ICD10: E03.9] Diagnosis: Generalized anxiety disorder[ICD10: F41.1] Chaparrita Flanagan MD, [facility] CPT-4: 56576 03/09/2016 ([id number]) 21269 EST. 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 PATIENT, LEVEL IV Diagnosis: ESSENTIAL HYPERTENSION[ICD9: 401.9] Diagnosis: Sleep apnea[ICD9: 780.57] Diagnosis: ANEMIA[ICD9: 285.9] Concepción Flanagan MD, [facility] CPT-4: 97613 12/25/2014 ([id number]) 75076 EST. PATIENT, LEVEL III Diagnosis: ESSENTIAL HYPERTENSION[ICD9: 401.9] Concepción Flanagan MD, [facility] CPT-4: 46972 10/13/2014 ([id number]) 27384 EST. PATIENT, LEVEL IV Diagnosis: HYPOTHYROIDISM[ICD9: 244.9] Diagnosis: HYPERLIPIDEMIA[ICD9: 272.4] Diagnosis: ESSENTIAL HYPERTENSION[ICD9: 401.9] Diagnosis: ENCNTR LONG-RX USE NEC[ICD9: V58.69] Diagnosis: Sleep apnea[ICD9: 780.57] Concepción Flanagan MD, [facility] CPT-4: 48233 08/28/2014 ([id number]) Miscellaneous no charge Diagnosis: ESSENTIAL HYPERTENSION[ICD9: 401.9] Concepción Flanagan MD [facility] CPT-4: 11034 08/07/2014 ([id number]) 31245 EST. PATIENT, LEVEL IV Diagnosis: EDEMA[ICD9: 782.3] Diagnosis: ACUTE SINUSITIS[ICD9: 461.9] Diagnosis: Urinary tract infection[ICD9: 599.0] Diagnosis: Nocturnal hypoxia[ICD9: 799.02] Chaparrita Flanagan MD, [facility] CPT-4: 04723 05/07/2014 ([id number]) 16787 EST. PATIENT, LEVEL IV Diagnosis: ESSENTIAL HYPERTENSION[ICD9: 401.9] Diagnosis: HYPERLIPIDEMIA[ICD9: 272.4] Diagnosis: JOINT PAIN-L/LEG[ICD9: 719.46] Concepción Flanagan MD [facility] CPT- 4: 22297 04/16/2014 ([id number]) 94220 EST. PATIENT, LEVEL IV Diagnosis: ESSENTIAL HYPERTENSION[SNOMED: 96198300] Diagnosis: HYPERLIPIDEMIA[ICD9: 272.4] Diagnosis: HYPOTHYROIDISM[ICD9: 244.9] Diagnosis: Nocturnal hypoxaemia[ICD9: 799.02] Concepción Flanagan MD [facility] CPT-4: 45293 01/21/2014 ([id number]) 28136 EST. PATIENT, LEVEL III Diagnosis: ESSENTIAL HYPERTENSION[SNOMED: 54708706] Diagnosis: Bradycardia[ICD9: 427.89] Concepción Flanagan MD, [facility] CPT-4: 87142 01/07/2014 ([id number]) 22289 EST. PATIENT, LEVEL III Diagnosis: ACUTE URI[ICD9: 465.9] Diagnosis: COUGH[ICD9: 786.2] Chaparrita Flanagan MD, [facility] CPT-4: 66124 12/26/2013 ([id number]) 10747 EST. PATIENT, LEVEL III Diagnosis: ALLERGIC RHINITIS[ICD9: 477.9] Diagnosis: HYPERLIPIDEMIA[ICD9: 272.4] Diagnosis: ESSENTIAL HYPERTENSION[SNOMED: 17169991] Diagnosis: ENCNTR LONG-RX USE NEC[ICD9: V58.69] Diagnosis: Laboratory exam ordered as part of routine general medical examination[ICD9: V72.62] Diagnosis: HYPOTHYROIDISM[ICD9: 244.9] Chaparrita Flanagan MD, [facility] CPT-4: 91299 11/12/2013 ([id number]) 16462 EST. PATIENT, LEVEL III Diagnosis: Acute maxillary sinusitis[ICD9: 461.0] Chaparrita Flanagan MD, [facility] CPT-4: 89238 10/09/2013 ([id number]) 03503 EST. PATIENT, LEVEL III Diagnosis: ESSENTIAL HYPERTENSION[SNOMED: 50844828] Diagnosis: DYSURIA[ICD9: 788.1] Concepción Flanagan MD, [facility] CPT-4: 22661 04/03/2013 ([id number]) 44298 EST. PATIENT, LEVEL III Diagnosis: ESSENTIAL HYPERTENSION[SNOMED: 07143195] Diagnosis: EDEMA[ICD9: 782.3] Concepción Flanagan MD, [facility] CPT-4: 43660 01/06/2013 ([id number]) 89916 EST. PATIENT, LEVEL III Diagnosis: UNSPECIFIED ASTHMA[ICD9: 493.90] Diagnosis: Cough[ICD9: 786.2] Diagnosis: ALLERGIC RHINITIS[ICD9: 477.9] Concepción Flanagan MD, [facility] CPT- 4: 26916 11/21/2012 ([id number]) 51943 EST. PATIENT, LEVEL IV Diagnosis: ESSENTIAL HYPERTENSION[SNOMED: 54327009] Diagnosis: EDEMA[ICD9: 782.3] Concepción Flanagan MD, [facility] CPT-4: 01711 10/28/2012 ([id number]) 05982 EST. PATIENT, LEVEL IV Diagnosis: ESSENTIAL HYPERTENSION[SNOMED: 87316470] Diagnosis: EDEMA[ICD9: 782.3] Diagnosis: Knee pain, right[ICD9: 719.46] Diagnosis: Urge incontinence[ICD9: 788.31] Concepción Flanagan MD [facility] CPT- 4: 40792 09/30/2012 ([id number]) 32449 EST. PATIENT, LEVEL III Diagnosis: ESSENTIAL HYPERTENSION[SNOMED: 24090982] Concepción Flanagan MD [facility] CPT-4: 56098 08/14/2012 ([id number]) 62883 EST. PATIENT, LEVEL III Diagnosis: CELLULITIS OF LEG[ICD9: 682.6] EDGARDO Welch MD CPT- 4: 58662 08/05/2012 ([id number]) 72761 EST. PATIENT, LEVEL IV Diagnosis: ESSENTIAL HYPERTENSION[SNOMED: 20257203] Diagnosis: EDEMA[ICD9: 782.3] Diagnosis: Constipation[ICD9: 564.00] Concepción Flanagan MD [facility] CPT- 4: 07196 07/15/2012 ([id number]) 92658 EST. PATIENT, LEVEL III Diagnosis: Subungual contusion of toenail[ICD9: 924.3] Concepción Flanagan MD [facility] CPT-4: 76885 05/27/2012 Postop follow up visit related to original px Diagnosis: BENIGN ERLINDA SKIN ARM[ICD9: 216.6] Diagnosis: BENIGN ERLINDA SKIN TRUNK[ICD9: 216.5] Concepción Flanagan MD [facility] CPT-4: 67265 05/03/2012 ([id number]) 62205 EST. PATIENT, LEVEL IV Diagnosis: ESSENTIAL HYPERTENSION[SNOMED: 74628785] Diagnosis: OA (osteoarthritis) of knee[ICD9: 715.96] Diagnosis: EDEMA[ICD9: 782.3] Concepción Flanagan MD [facility] CPT-4: 84411 03/25/2012 93776 EST. PATIENT, LEVEL IV Diagnosis: ESSENTIAL HYPERTENSION[SNOMED: 61463998] Diagnosis: Abdominal bloating[ICD9: 787.3] Concepción Flanagan MD [facility] CPT- 4: 28984 03/12/2012 ([id number]) 58956 EST. PATIENT, LEVEL IV Diagnosis: ESSENTIAL HYPERTENSION[SNOMED: 00030664] Diagnosis: EDEMA[ICD9: 782.3] Concepción Flanagan MD, [facility] CPT-4: 20957 01/23/2012 ([id number]) 24880 EST. PATIENT, LEVEL III Diagnosis: Breast pain, left[ICD9: 611.71] Chaparrita Flanagan MD [facility] CPT-4: 63028 01/12/2012 ([id number]) 40063 EST. PATIENT, LEVEL IV Diagnosis: ESSENTIAL HYPERTENSION[SNOMED: 94978833] Diagnosis: DEPRESSIVE DISORDER NEC[ICD9: 311] Diagnosis: ANXIETY STATE[ICD9: 300.00] Concepción Flanagan MD [facility] CPT- 4: 47344 12/25/2011 ([id number]) 96010 EST. PATIENT, LEVEL IV Diagnosis: ESSENTIAL HYPERTENSION[SNOMED: 93465520] Diagnosis: EDEMA[ICD9: 782.3] Concepción Flanagan MD [facility] CPT-4: 13702 12/04/2011 ([id number]) 79983 EST. PATIENT, LEVEL IV Diagnosis: ESSENTIAL HYPERTENSION[SNOMED: 37279697] Diagnosis: DEPRESSIVE DISORDER NEC[ICD9: 311] Concepción Flanagan MD, [facility] CPT-4: 50844 09/20/2011 98925 EST. PATIENT, LEVEL IV Diagnosis: Dysuria[ICD9: 788.1] Diagnosis: ESSENTIAL HYPERTENSION[SNOMED: 14488213] Diagnosis: Anxiety[ICD9: 300.00] Concepción Flanagan MD, [facility] CPT-4: 88607 09/06/2011 ([id number]) 40932 EST. PATIENT, LEVEL IV Diagnosis: LUMBAGO[ICD9: 724.2] Diagnosis: ESSENTIAL HYPERTENSION[SNOMED: 14168147] Concepción Flanagan MD, [facility] CPT-4: 68877 08/30/2011 16893 EST. PATIENT, LEVEL III Diagnosis: ACUTE SINUSITIS[ICD9: 461.9] Diagnosis: Urinary frequency[ICD9: 788.41] Chaparrita Flanagan MD, [facility] CPT-4: 06377 08/23/2011 75872 EST. PATIENT, LEVEL III Diagnosis: Lesion of labia[ICD9: 624.8] Chaparrita Flanagan MD, [facility] CPT-4: 37663 08/09/2011 39508 EST. PATIENT, LEVEL IV Diagnosis: HYPOTHYROIDISM[ICD9: 244.9] Diagnosis: HYPERLIPIDEMIA[ICD9: 272.4] Diagnosis: BP (high blood pressure)[SNOMED: 93874574] Diagnosis: Knee pain, bilateral[ICD9: 719.46] Diagnosis: ESOPHAGEAL REFLUX[ICD9: 530.81] Concepción Flanagan MD, [facility] CPT- 4: 96841 05/04/2011 16869 EST. PATIENT, LEVEL III Diagnosis: ACUTE URI[ICD9: 465.9] Diagnosis: Asthma[ICD9: 493.90] Diagnosis: Esophageal reflux[ICD9: 530.81] Chaparrita Flanagan MD, [facility] CPT-4: 57942 04/19/2011 Plan of Care Planned Activity Notes Codes Status Date Appointment: [facility] [place] [phone] [facility] (30 min) Complex 08/31/2017 Visit Plan: URI - Pt advised to increase fluids, vitamin C. Discussed natural and expected course of this diagnosis and need to alert me if symptoms do not follow expected course, or if any worse. RX sent to patient' s pharmacy. 08/09/2017 Appointment: Chaparrita Arrieta [facility]el[phone] [facility] [phone] (30 min) Complex 08/09/2017 Patient Education: Patient [...] refilled hydrocodone. 05/07/2017 Appointment: Concepción Flanagan WPtel[facility] (15 min) Moderate 05/07/2017 Patient [...] care surrogate. 04/12/2017 Appointment: Hayley London WPtel: [facility] [facility] - Annual Wellness Visit 04/12/2017 Patient Education: Patient Medication Summary Completed 04/12/2017 Appointment: Nurse Visit 02/15/2017 Patient Education: Patient Medication Summary Completed 02/15/2017 Visit Plan: Fhqxo-ftmbrohkuf-sonmg zpack when finished with cipro-follow up chest [...] day-follow up Sunday02/02/2017 Appointment: Chaparrita Arrieta WPtel: [phone] (15 min) Moderate 02/02/2017 Patient Education: Patient Medication Summary Completed 02/02/2017 Patient Education: Obesity Completed 02/02/2017 Visit Plan: Sinusitis - Pt has acute infection - pain in face, maxillary region, Pt informed to use decongestant, RX given to patient, sinus rinses also recommended. Call if symptoms do not show improvement. 01/15/2017 Appointment: Chaparrita Arrieta WPtel: [phone] (10 min) Simple 01/15/2017 Patient Education: [...] today 01/04/2017 Appointment: Concepción Flanagan WPtel: [phone] [facility] (15 min) Moderate 01/04/2017 Patient Education: [...] (lexapro). 09/07/2016 App[facility]ment[phone] ([facility] min) Complex 09/07/2016 Patient [...] home. 07/06/2016 Appointment[phone] (15 min) Moderate 07/06/2016 Patient [...] DAILY 06/08/2016 Appointment[phone] ([facility] min) Moderate 06/08/2016 Patient [...] edema. 04/06/2016 Appointment: [phone] ([facility] min) Moderate 04/06/2016 Patient [...] for Mikala. 01/18/2016 Appointment: Concepción Flanagan WPtel: [address] [place], [place] [id number] [place] (15 min) Moderate 01/18/2016 Patient Education: Patient [...] fatigue improved-will fax today's note to [employer] for re-certification of oxygen. 09/09/2015 Visit Plan: [...] daytime fatigue improved-will fax today's note to [employer] for re-certification of oxygen. 09/09/2015 Appointment: (15 [...] discuss with her son who is a Nuclear Power[employer] Mechanic - and consider re-evaluation for nasal pillows with her cpap since she could not tolerate a face mask cpap in the past. 12/25/2014 Appointment: Concepción Flanagan WPtel: [phone] [phone] Follow up 12/25/2014 Patient Education: Patient [...] home. 10/13/2014 Appointment: Concepción Flanagan WPtel: [phone] [facility] Follow up 10/13/2014 Patient Education: Patient [...] her . 08/28/2014 Appointment: [phone] Follow [facility] 08/28/2014 Patient Education: Patient Medication [...] monitor creatinine. 04/16/2014 Appointment: Concepción Flanagan WPtel: [phone] [facility] Follow up 04/16/2014 Patient Education: Patient Medication Summary Completed 04/16/2014 Patient Education: Patient Medication Summary Completed 04/14/2014 Patient Education: Hypertension Completed 04/14/2014 Visit Plan: Wound Instructions - Pt was instruced to keep the wound clean, wash with antibacterial soap, use triple antibiotic ointment, call if redness, pustular drainage, or any other acute conerns. 01/27/2014 Appointment: Concepción Flanagan WPtel: [address] [facility] Surgical Procedure 01/27/2014 Patient Education: Patient Medication [...] home eval. 01/21/2014 Appointment: Con[facility]pc[facility] Fl[facility]agan [phone] [facility] 01/21/2014 Patient Education: Patient Medication Summary Completed 01/21/2014 Patient Education: Hypertension Completed 01/21/2014 Visit Plan: Hypotension - Bradycardia - pt to stop her metroprolol - check bp and heart rate twice daily and monitor symptoms. Call if bp uncontrolled- or heart rate to elevated. 01/07/2014 Appointment: Concepción Flanagan [phone] Follow up 01/07/2014 Patient Education: Hypertension Completed [...] and swallow 11/12/2013 Appointment: Chaparrita Arrieta WPtel: [facility] [place] [address] Sick 11/12/2013 Patient Education: Patient Medication Summary Completed 11/12/2013 Patient Education: Hypertension Completed 11/12/2013 Visit Plan: Sinusitis - Pt has acute infection - pain in face, maxillary region, Pt informed to use decongestant, RX given to patient, sinus rinses also recommended. Call if symptoms do not show improvement. 10/09/2013 Appointment: Chaparrita Arrieta WPtel: [phone] Sick 10/09/2013 Patient Education: Patient Medication [...] check UA 04/03/2013 Appointment: Concepción Flanagan WPtel: [address] [place], [place] [id number] Follow up 04/03/2013 Patient Education: Patient Medication Summary Completed 04/03/2013 Patient Education: Hypertension Completed 04/03/2013 Patient Education: Patient Medication Summary Completed 03/31/2013 Patient Education: Hypertension Completed 03/31/2013 Visit Plan: ua performed - sent for culture if indicated. 03/21/2013 Appointment: Concepción Flanagan WPtel: [facility] Lab Draw 03/21/2013 Patient Education: Patient [...] edema. 01/06/2013 Appointment: Concepción Flanagan WPtel: [phone] [facility] Follow up 01/06/2013 Patient Education: Patient Medication Summary Completed 01/06/2013 Patient Education: Hypertension Completed 01/06/2013 Visit Plan: Nomdsnioo-Nctejv-kyxgycor not well controlled- KENALOG injection today in [...] edema. 10/28/2012 Appointment: Concepc[facility]agan [facility]el[phone] [facility] 10/28/2012 Patient Education: [...] treatment recommendations. 09/30/2012 Appointment: Concepción Flanagan WPtel: [facility] Follow up 09/30/2012 Patient Education: Patient Medication Summary Completed 09/30/2012 Patient Education: Hypertension Completed 09/30/2012 Appointment: Concepción Flanagan WPtel: [facility] Lab Draw 09/11/2012 Patient Education: Patient [...] - resolved 08/14/2012 Appointment: Concepción Flanagan WPtel: [facility] Follow up 08/14/2012 Patient Education: Patient Medication Summary Completed 08/14/2012 Patient Education: Hypertension Completed 08/14/2012 Visit Plan: Cellulitis - start with generic Bactrim DS as directed, return to clinic as previously directed, call for acute change in symptoms, worsening redness, warmth, discharge. 08/05/2012 Appointment: Concepción Flanagan WPtel: [facility]5 [facility] Follow up 08/05/2012 Patient Education: Patient [...] soften stools. 07/15/2012 Appointment: Concepc[facility] Flanagan [facility]Ptel[phone] [facility] follow up 07/15/2012 Patient Education: Patient Medication Summary Completed 07/15/2012 Patient Education: Hypertension Completed 07/15/2012 Visit Plan: Subungual discoloratiion of toenail- June 10 pt is to see Dr. Bee - I have discussed the case with the pt and Dr. bee and she will likely have a biopsy of the digit and avulsion of the nail. 05/27/2012 Appointment: Concepción Flanagan WPtel: [facility]5 [facility] [facility] 05/27/2012 Patient Education: Patient Medication Summary Completed 05/27/2012 Appointment: Chaparrita Arrieta WPtel: [phone] Follow up 05/16/2012 Visit Plan: Obesity [...] Influenza vaccine 05/03/2012 Appointment: Chaparrita Arrieta WPtel: [phone] Follow up 05/03/2012 Patient Education: Patient Medication Summary Completed 05/03/2012 Visit Plan: Wound Instructions - Pt was instruced to keep the wound clean, wash with antibacterial soap, use triple antibiotic ointment, call if redness, pustular drainage, or any other acute conerns. 04/23/2012 Appointment: Panchito Concepción WPtel: [facility] [facility] 04/23/2012 Patient Education: Patient Medication Summary Completed 04/23/2012 Appointment: PanchitoConcepción WPtel: [facility] [facility] 04/16/2012 Patient Education: Patient Medication [...] readings at home. Recommend follow up with identity management developer for clearance before knee surgery. Will get [...] thighs. 03/25/2012 Appointment: Concepción Flanagan WPtel: [phone] Other 03/25/2012 Patient Education: Patient Medication Summary [...] lesion. 03/12/2012 Appointment: Chaparrita Arrieta WPtel: [phone] [facility] [place] [address] Other 03/12/2012 Patient Education: Patient Medication Summary [...] at home. 01/23/2012 Appointment: Concepción Flanagan WPtel: [facility] Other 01/23/2012 Patient Education: Patient Medication Summary Completed 01/23/2012 Patient Education: High Blood Pressure: Essential Hypertension Completed 2011 Visit Plan: Breast lwxb-ebsb-oceapvpbc natural and expected course of this diagnosis and to alert me if symptoms do not follow expected course, or if any worse. Plan for diagnostic mammogram, in meantime, instructed patient to get more supportive bra, use anti-inflammatories and monitor symptoms. Patient verbalized understanding of plan. 01/12/2012 Appointment: Chaparrita Arrieta WPtel: [facility]5 [phone] [place] [address] Other 01/12/2012 Patient Education: Patient Medication Summary [...] medications. 12/25/2011 Appointment: Concepción Flanagan WPtel: [phone] [facility] Other 12/25/2011 Patient Education: Patient Medication [...] SOCKS. 12/04/2011 Appointment: Concepción Flanagan WPtel: [phone] [facility] [place] Other 12/04/2011 Patient Education: Patient Medication Summary Completed 12/04/2011 Patient Education: High Blood Pressure: Essential Hypertension Completed 2011 Appointment: Chaparrita Arrieta WPtel: [phone] [phone] [place] Lab Draw 12/01/2011 Patient Education: Patient Medication Summary Completed 12/01/2011 Appointment: Concepción Flanagan WPtel: [phone] [facility] Lab Draw 11/20/2011 Patient Education: Patient [...] worsen. 09/20/2011 Appointment: Concepción Flanagan WPtel: [phone] [facility] Other 09/20/2011 Patient Education: Patient Medication Summary Completed 09/20/2011 Patient Education: High Blood Pressure: Essential Hypertension Completed 2011 Appointment: Concepción Flanagan WPtel: [phone] [facility] Other 09/13/2011 Visit Plan: Hypertension - [...] benefits of treament with the above medications. Nzztffk-jmsqrnbd-XZ negative 09/06/2011 Appointment: Chaparrita Arrieta WPtel: [phone] [phone] [place] [address] Other 09/06/2011 Patient Education: Patient Medication Summary [...] worsen. 08/30/2011 Appointment: Concepción Flanagan [facility]Ptel: [phone] [place] Other 08/30/2011 Patient Education: Patient Medication [...] patient's pharmacy. 08/23/2011 Appointment: Chaparrita Arrieta WPtel: [phone] [phone] Other 08/23/2011 Patient Education: Patient Medication Summary Completed 08/23/2011 Visit Plan: Labial cyst-discussed natural and expected course of this diagnosis and to alert me if symtpoms do not follow expected course, or if any worse. Patient and verbalized understanding. 08/09/2011 Appointment: Chaparrita Arrieta WPtel: [facility]5 [phone] Other 08/09/2011 Patient Education: Patient Medication [...] not improving. 05/04/2011 Appointment: Concepción Flanagan WPtel: [facility]5 [facility] Other 05/04/2011 Patient Education: Patient Medication Summary [...] 40mg daily. 04/19/2011 Appointment: Berny Chaparrita WPtel: [address] [place], [place] [id number] [facility] 04/19/2011 Patient Education: Patient Medication Summary Completed [...] twice daily and monitor symptoms. . Breast ozcu-xije-xrsqnqerf natural and expected course of this diagnosis [...] discuss with her son who is a Nuclear Powerplant Mechanic - and consider re-evaluation for nasal pillows with her cpap since she could not tolerate a face mask cpap in the past. . Cellulitis - start with generic Bactrim DS as directed, return to clinic as previously directed, call for acute change in symptoms, worsening redness, warmth, discharge. . Obesity - chronic issue with this [...] do not improve, or if any worse.. Gsydxfbwb-Ojecwi-deouawpz not well controlled-KENALOG injection today in the [...] benefits of treament with the above medications. Bhunksi-giiqippc-DO negative . Hypertension - well controlled - [...] readings at home. Recommend follow up with identity management developer for clearance before knee surgery. Will get [...] fatigue improved-will fax today's note to [employer] for re-certification of oxygen. . Hypertension - [...] fatigue improved-will fax today's note to [employer] for re-certification of oxygen. . Hypertension - [...] worse. RX sent to patient's pharmacy. . Vdnar-ywahawjqyx-llfpg zpack when finished with cipro- follow up [...]
--- OUTSIDE RECORDS SUMMARY | 2018-12-27 11:39 | XMS REPORT | Continuity of Care Document ---
Author Organization Unknown Address Unknown Allergies Active Description Code Type Severity Reaction Onset Reported/Identified Relationship to Patient Clinical Status Yes No Known Drug Allergies [id number] Drug Allergy Unknown N/A 05/18/2010 Yes morphine [id number] Drug Allergy Mild CONFUSION 12/18/2018 Medications There is no data. Problems Date Dx Coded Attending Type Code Diagnosis Diagnosed By 07/26/1354 CAYETANO STAUFFER, TOMMY Herrera Ot M79.604 PAIN IN RIGHT LEG 07/26/1354 TOMMY MONTEIRO MD Ot M79.605 PAIN IN LEFT LEG 07/26/1354 TOMMY MONTEIRO MD Ot R26.81 UNSTEADINESS ON FEET 07/26/1354 TOMMY MONTEIRO MD Ot R53.1 WEAKNESS 07/26/1354 TOMMY MONTEIRO MD Ot Z96.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 LEFT ARTIFICIAL KNEE JOINT 07/26/1699 TOMMY MONTEIRO MD Ot I89.0 LYMPHEDEMA, NOT ELSEWHERE CLASSIFIED 05/18/2010 Ot 717.2 05/18/2010 Ot 717.7 05/18/2010 Ot 733.92 05/18/2010 Ot V57.1 06/24/2012 Ot 244.9 HYPOTHYROIDISM NOS 06/24/2012 Ot 272.0 PURE HYPERCHOLESTEROLEM 06/24/2012 Ot 278.01 MORBID OBESITY 06/24/2012 Ot 285.1 AC POSTHEMORRHAG ANEMIA 06/24/2012 Ot 311 DEPRESSIVE DISORDER NEC 06/24/2012 Ot 355.9 MONONEURITIS NOS 06/24/2012 Ot 401.9 HYPERTENSION NOS 06/24/2012 Ot 493.90 ASTHMA, UNSPECIFIED 06/24/2012 Ot 530.81 ESOPHAGEAL REFLUX 06/24/2012 Ot 564.00 UNSPEC CONSTIPATION 06/24/2012 Ot 715.36 LOC OSTEOARTH NOS-L/LEG 06/24/2012 Ot 788.63 URGENCY OF URINATION 06/24/2012 Ot V85.36 BODY MASS INDEX 36.0-36.9, ADULT 09/17/2012 Ot V43.65 KNEE JOINT REPLACEMENT STATUS 09/17/2012 Ot V54.81 AFTERCARE FOLLOWING JOINT REPLACEMENT 09/17/2012 Ot V57.1 PHYSICAL THERAPY NEC 10/15/2013 JEEVAN LUNSFORD MD Ot 455.0 INT HEMORRHOID W/O COMPL 10/15/2013 JEEVAN LUNSFORD MD Ot 455.3 EXT HEMORRHOID W/O COMPL 10/15/2013 JEEVAN LUNSFORD MD Ot 530.11 REFLUX ESOPHAGITIS 10/15/2013 JEEVAN LUNSFORD MD Ot 535.50 UNSP GASTRITIS GASTRODUODENITIS W/O ME 10/15/2013 JEEVAN LUNSFORD MD Ot 553.3 DIAPHRAGMATIC HERNIA 10/15/2013 JEEVAN LUNSFORD MD Ot 562.10 DIVERTICULOSIS COLON (W/O MENT OF HEMORR 12/31/2013 GALILEO ARREGUIN Ot 842.00 SPRAIN OF WRIST NOS 12/31/2013 GALILEO ARREGUIN Ot 924.9 CONTUSION NOS 12/31/2013 GALILEO ARREGUIN Ot 959.3 ELB/FOREARM/WRST INJ NOS 12/31/2013 GALILEO ARREGUIN Ot E000.8 OTHER EXTERNAL CAUSE STATUS 12/31/2013 GALILEO ARREGUIN Ot E849.0 ACCIDENT IN HOME 12/31/2013 GALILEO ARREGUIN Ot E885.9 FALL FROM SLIPPING, TRIPPING, OR STUMBLI 08/06/2014 CAYETANO STAUFFER, TOMMY Herrera Ot 401.9 08/06/2014 TOMMY MONTEIRO MD Ot 496 08/06/2014 TOMMY MONTEIRO MD Ot 799.02 08/06/2014 TOMMY MONTEIRO MD Ot V76.12 08/17/2014 TOMMY MONTEIRO MD Ot 401.9 08/17/2014 TOMMY MONTEIRO MD Ot 496 08/17/2014 TOMMY MONTEIRO MD Ot 799.02 08/17/2014 TOMMY MONTEIRO MD Ot V76.12 08/24/2014 Ot 733.90 08/24/2014 Ot V49.81 08/24/2014 Ot V82.81 08/24/2014 Ot 272.4 08/24/2014 Ot 401.9 08/24/2014 Ot 795.5 08/24/2014 Ot V76.12 08/24/2014 Ot 717.3 08/24/2014 Ot V72.63 08/24/2014 Ot V74.8 08/24/2014 Ot 719.06 08/24/2014 Ot 729.5 08/24/2014 Ot 729.81 08/24/2014 Ot V45.89 08/24/2014 Ot 272.4 08/24/2014 Ot 401.9 08/24/2014 Ot 795.5 08/24/2014 Ot V76.12 08/24/2014 Ot 611.71 08/24/2014 Ot 715.36 08/24/2014 Ot V57.1 08/24/2014 Ot V57.21 08/24/2014 Ot V72.63 08/24/2014 Ot V72.81 08/24/2014 Ot V74.8 08/24/2014 CAYETANO STAUFFER, TOMMY Herrera Ot V76.12 08/24/2014 CAYETANO STAUFFER, TOMMY Herrera Ot 733.00 08/24/2014 CAYETANO STAUFFER, TOMMY Herrera Ot V49.81 08/24/2014 ISATU STAUFFER, JEEVAN Ot V72.84 08/24/2014 CAYETANO STAUFFER, TOMMY Herrera Ot 401.9 08/24/2014 CAYETANO STAUFFER, TOMMY Herrera Ot 496 08/24/2014 CAYETANO STAUFFER, TOMMY Herrera Ot 799.02 08/24/2014 CAYETANO STAUFFER, TOMMY Herrera Ot V76.12 09/03/2014 Ot 733.90 09/03/2014 Ot V49.81 09/03/2014 Ot V82.81 09/03/2014 Ot 272.4 09/03/2014 Ot 401.9 09/03/2014 Ot 795.5 09/03/2014 Ot V76.12 09/03/2014 Ot 717.3 09/03/2014 Ot V72.63 09/03/2014 Ot V74.8 09/03/2014 Ot 719.06 09/03/2014 Ot 729.5 09/03/2014 Ot 729.81 09/03/2014 Ot V45.89 09/03/2014 Ot 272.4 09/03/2014 Ot 401.9 09/03/2014 Ot 795.5 09/03/2014 Ot V76.12 09/03/2014 Ot 611.71 09/03/2014 Ot 715.36 09/03/2014 Ot V57.1 09/03/2014 Ot V57.21 09/03/2014 Ot V72.63 09/03/2014 Ot V72.81 09/03/2014 Ot V74.8 09/03/2014 CAYETANO STAUFFER, TOMMY Herrera Ot V76.12 09/03/2014 CAYETANO STAUFFER, TOMMY A Ot 733.00 09/03/2014 CAYETANO STAUFFER, TOMMY A Ot V49.81 09/03/2014 ISATU STAUFFER, TAKAAKI Ot V72.84 09/03/2014 CAYETANO STAUFFER, TOMMY Herrera Ot 401.9 09/03/2014 CAYETANO STAUFFER, TOMMY Herrera Ot 496 09/03/2014 CAYETANO STAUFFER, TOMMY Herrera Ot 799.02 09/03/2014 CAYETANO STAUFFER, TOMMY Herrera Ot V76.12 09/03/2014 ZORA JACOB MD Ot 278.00 09/03/2014 ZORA JACOB MD Ot 719.46 09/03/2014 ZORA JACOB MD Ot 721.3 09/03/2014 ZORA JACOB MD Ot 729.1 09/03/2014 ZORA JACOB MD Ot V43.65 09/03/2014 CECIL STAUFFER, ZORA Hanson Ot V58.69 09/03/2014 CECIL STAUFFER, ZORA Hanson Ot V85.39 09/04/2014 CAYETANO STAUFFER, TOMMY Herrera Ot 401.9 09/04/2014 CAYETANO STAUFFER, TOMMY Herrera Ot 496 09/04/2014 CAYETANO STAUFFER, TOMMY Herrera Ot 799.02 09/04/2014 CAYETANO STAUFFER, TOMMY Herrera Ot V76.12 09/07/2014 MICHAEL LOWE SALES AND PRODUCTION MANAGER Ot 285.9 09/26/2014 MICHAEL LOWE SALES AND PRODUCTION MANAGER Ot 285.9 10/15/2014 MICHAEL LOWE SALES AND PRODUCTION MANAGER Ot 285.9 2014 ZORA JACOB MD Ot 278.00 OBESITY, NOS 2014 ZORA JACOB MD Ot 719.46 JOINT PAIN-L/LEG 2014 ZORA JACOB MD Ot 721.3 LUMBOSACRAL SPONDYLOSIS 2014 ZORA JACOB MD Ot 729.1 MYALGIA AND MYOSITIS NOS 2014 ZORA JACOB MD Ot V58.69 OTH MED,LT,CURRENT USE 2014 ZORA JACOB MD Ot V85.38 BODY MASS INDEX 38.0-38.9, ADULT 10/22/2014 ZORA JACOB MD Ot 278.00 10/22/2014 ZORA JACOB MD Ot 719.46 10/22/2014 ZORA JACOB MD Ot 721.3 10/22/2014 ZORA JACOB MD, Ot 729.1 10/22/2014 ZORA JACOB MD Ot V43.65 10/22/2014 ZORA JACOB MD Ot V58.69 10/22/2014 ZORA JACOB MD Ot V85.39 12/07/2014 ZORA JACOB MD Ot 719.46 JOINT PAIN-L/LEG 12/07/2014 ZORA JACOB MD Ot 721.3 LUMBOSACRAL SPONDYLOSIS 12/07/2014 ZORA JACOB MD Ot 729.1 MYALGIA AND MYOSITIS NOS 12/07/2014 ZORA JACOB MD Ot V43.65 KNEE JOINT REPLACEMENT STATUS 12/07/2014 ZORA JACOB MD Ot V58.69 OTH MED,LT,CURRENT USE 02/16/2016 Ot 272.4 HYPERLIPIDEMIA NEC/NOS 02/16/2016 Ot 401.9 HYPERTENSION NOS 02/16/2016 Ot 795.5 TUBERCULIN TEST REACTION WO TUBERCULOSIS 02/16/2016 Ot V76.12 OT SCREEN MAMMO-MALIGN NEOPLASM OF SUZI 02/16/2016 Ot 611.71 MASTODYNIA 02/16/2016 Ot 715.36 LOC OSTEOARTH NOS-L/LEG 02/16/2016 Ot V57.1 PHYSICAL THERAPY NEC 02/16/2016 Ot V57.21 ENCOUNTER FOR OCCUPATIONAL THERAPY 02/16/2016 Ot V72.63 PRE- PROCEDURAL LABORATORY EXAMINATION 02/16/2016 Ot V72.81 EXAM-PRE- OPERATIVE CARDIOVASCULAR 02/16/2016 Ot V74.8 SCREEN- BACTERIAL DIS NEC 02/16/2016 TOMMY MONTEIRO MD Ot V76.12 OT SCREEN MAMMO-MALIGN NEOPLASM OF SUZI 02/16/2016 TOMMY MONTEIRO MD Ot 733.00 OSTEOPOROSIS NOS 02/16/2016 TOMMY MONTEIRO MD Ot V49.81 ASYMPT POSTMENOPAUSAL STATUS (AGE-RELATE 02/16/2016 JEEVAN LUNSFORD MD Ot V72.84 EXAM PRE-OPERATIVE NOS 02/16/2016 TOMMY MONTEIRO MD Ot 401.9 HYPERTENSION NOS 02/16/2016 TOMMY MONTEIRO MD Ot 496 CHR AIRWAY OBSTRUCT NEC 02/16/2016 TOMMY MONTEIRO MD Ot 799.02 HYPOXEMIA 02/16/2016 TOMMY MONTEIRO MD Ot V76.12 OTH SCREEN MAMMO-MALIGN NEOPLASM OF SUZI 02/16/2016 ZORA JACOB MD Ot 278.00 OBESITY, NOS 02/16/2016 ZORA JACOB MD Ot 719.46 JOINT PAIN-L/LEG 02/16/2016 ZORA JACOB MD Ot 721.3 LUMBOSACRAL SPONDYLOSIS 02/16/2016 ZORA JACOB MD Ot 729.1 MYALGIA AND MYOSITIS NOS 02/16/2016 ZORA JACOB MD Ot V43.65 KNEE JOINT REPLACEMENT STATUS 02/16/2016 ZORA JACOB MD Ot V58.69 OTH MED,LT,CURRENT USE 02/16/2016 ZORA JACOB MD Ot V85.39 BODY MASS INDEX 39.0-39.9, ADULT 02/16/2016 MICHAEL LOWE SALES AND PRODUCTION MANAGER Ot 285.9 ANEMIA NOS 02/21/2016 TOMMY MONTEIRO MD Ot I89.0 LYMPHEDEMA, NOT ELSEWHERE CLASSIFIED 03/16/2016 TOMMY MONTEIRO MD Ot I89.0 LYMPHEDEMA, NOT ELSEWHERE CLASSIFIED 03/27/2016 TOMMY MONTEIRO MD Ot I89.0 LYMPHEDEMA, NOT ELSEWHERE CLASSIFIED 04/04/2016 TOMMY MONTEIRO MD Ot I89.0 LYMPHEDEMA, NOT ELSEWHERE CLASSIFIED 02/08/2017 Ot 611.71 MASTODYNIA 02/08/2017 Ot 715.36 LOC OSTEOARTH NOS-L/LEG 02/08/2017 Ot V57.1 PHYSICAL THERAPY NEC 02/08/2017 Ot V57.21 ENCOUNTER FOR OCCUPATIONAL THERAPY 02/08/2017 Ot V72.63 PRE- PROCEDURAL LABORATORY EXAMINATION 02/08/2017 Ot V72.81 EXAM-PRE- OPERATIVE CARDIOVASCULAR 02/08/2017 Ot V74.8 SCREEN- BACTERIAL DIS NEC 02/08/2017 TOMMY MONTEIRO MD Ot V76.12 OTH SCREEN MAMMO-MALIGN NEOPLASM OF SUZI 02/08/2017 TOMMY MONTEIRO MD Ot 733.00 OSTEOPOROSIS NOS 02/08/2017 TOMMY MONTEIRO MD Ot V49.81 ASYMPT POSTMENOPAUSAL STATUS (AGE-RELATE 02/08/2017 JEEVAN LUNSFORD MD Ot V72.84 EXAM PRE-OPERATIVE NOS 02/08/2017 TOMMY MONTEIRO MD Ot 401.9 HYPERTENSION NOS 02/08/2017 TOMMY MONTEIRO MD Ot 496 CHR AIRWAY OBSTRUCT NEC 02/08/2017 TOMMY MONTEIRO MD Ot 799.02 HYPOXEMIA 02/08/2017 TOMMY MONTEIRO MD Ot V76.12 OTH SCREEN MAMMO-MALIGN NEOPLASM OF SUZI 02/08/2017 ZORA JACOB MD Ot 278.00 OBESITY, NOS 02/08/2017 ZORA JACOB MD Ot 719.46 JOINT PAIN-L/LEG 02/08/2017 ZORA JACOB MD Ot 721.3 LUMBOSACRAL SPONDYLOSIS 02/08/2017 ZORA JACOB MD Ot 729.1 MYALGIA AND MYOSITIS NOS 02/08/2017 ZORA JACOB MD Ot V43.65 KNEE JOINT REPLACEMENT STATUS 02/08/2017 ZORA JACOB MD Ot V58.69 OTH MED,LT,CURRENT USE 02/08/2017 ZORA JACOB MD Ot V85.39 BODY MASS INDEX 39.0-39.9, ADULT 02/08/2017 MICHAEL LOWE Ot 285.9 ANEMIA NOS 02/09/2017 JAIME ALMEIDA DO W Ot N39.0 URINARY TRACT INFECTION, SITE NOT SPECIF 02/09/2017 JAIME ALMEIDA DO W Ot Z01.818 ENCOUNTER FOR OTHER PREPROCEDURAL EXAMIN 02/14/2017 MICHAEL LOWE Ot J44.9 CHRONIC OBSTRUCTIVE PULMONARY DISEASE, U 03/01/2017 LIBRADO ALMEIDA DOK W Ot N39.0 URINARY TRACT INFECTION, SITE NOT SPECIF 03/01/2017 LIBRADO ALMEIDA DOK W Ot Z01.818 ENCOUNTER FOR OTHER PREPROCEDURAL EXAMIN 03/01/2017 MICHAEL LOWE Ot J44.9 CHRONIC OBSTRUCTIVE PULMONARY DISEASE, U 03/16/2017 ALMEIDA DO, JAIME W Ot Z47.1 AFTERCARE FOLLOWING JOINT REPLACEMENT JOHANSEN 03/16/2017 ALMEIDA DO, JAIME W Ot Z96.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 LEFT ARTIFICIAL KNEE JOINT 03/19/2017 MICHAEL LOWE SALES AND PRODUCTION MANAGER Ot J44.9 CHRONIC OBSTRUCTIVE PULMONARY DISEASE, U 03/22/2017 ALMEIDA DO, JAIME W Ot Z47.1 AFTERCARE FOLLOWING JOINT REPLACEMENT JOHANSEN 03/22/2017 ALMEIDA DO, JAIME W Ot Z96.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 LEFT ARTIFICIAL KNEE JOINT 03/25/2017 SUMANTH STAUFFER, JASON J Ot G47.30 SLEEP APNEA, UNSPECIFIED 03/25/2017 SUMANTH STAUFFER, JASON J Ot J45.909 UNSPECIFIED ASTHMA, UNCOMPLICATED 03/25/2017 SUMANTH STAUFFER, JASON J Ot R35.0 FREQUENCY OF MICTURITION 03/25/2017 SUMANTH STAUFFER JASON J Ot 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 03/25/2017 SUMANTH STAUFFER JASON J Ot Z85.828 PERSONAL HISTORY OF OTHER MALIGNANT NEOP 03/25/2017 SUMANTH STAUFFER, JASON J Ot Z96.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 LEFT ARTIFICIAL KNEE JOINT 04/21/2017 ALMEIDA DO, JAIME W Ot Z47.1 AFTERCARE FOLLOWING JOINT REPLACEMENT JOHANSEN 04/21/2017 ALMEIDA DO, JAIME W Ot Z96.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 LEFT ARTIFICIAL KNEE JOINT 05/26/2017 ALMEIDA DO, JAIME W Ot Z47.1 AFTERCARE FOLLOWING JOINT REPLACEMENT JOHANSEN 05/26/2017 ALMEIDA DO, JAIME W Ot Z96.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 LEFT ARTIFICIAL KNEE JOINT 07/02/2017 ALMEIDA DO, JAIME W Ot Z47.1 AFTERCARE FOLLOWING JOINT REPLACEMENT JOHANSEN 07/02/2017 ALMEIDA DO, JAIME W Ot Z96.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 LEFT ARTIFICIAL KNEE JOINT 07/23/2017 ALMEIDA DO, JAIME W Ot Z47.1 AFTERCARE FOLLOWING JOINT REPLACEMENT JOHANSEN 07/23/2017 ALMEIDA DO, JAIME W Ot Z96.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 LEFT ARTIFICIAL KNEE JOINT 07/24/2017 ALMEIDA DO, JAIME W Ot Z47.1 AFTERCARE FOLLOWING JOINT REPLACEMENT JOHANSEN 07/24/2017 ALMEIDA DO, JAIME W Ot Z96.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 LEFT ARTIFICIAL KNEE JOINT 09/25/2017 DINA BRO APRN Ot R05 COUGH 10/11/2017 DINA BRO MUSEUM DIRECTOR Ot R05 COUGH 12/24/2017 CAYETANO STAUFFER, TOMMY Herrera Ot V76.12 OTH SCREEN MAMMO-MALIGN NEOPLASM OF SUZI 12/24/2017 TOMMY MONTEIRO MD Ot 733.00 OSTEOPOROSIS NOS 12/24/2017 TOMMY MONTEIRO MD Ot V49.81 ASYMPT POSTMENOPAUSAL STATUS (AGE-RELATE 12/24/2017 ISATU STAUFFER, JEEVAN Ot V72.84 EXAM PRE-OPERATIVE NOS 12/24/2017 TOMMY MONTEIRO MD Ot 401.9 HYPERTENSION NOS 12/24/2017 TOMMY MONTEIRO MD Ot 496 CHR AIRWAY OBSTRUCT NEC 12/24/2017 TOMMY MONTEIRO MD Ot 799.02 HYPOXEMIA 12/24/2017 TOMMY MONTEIRO MD Ot V76.12 OTH SCREEN MAMMO-MALIGN NEOPLASM OF SUZI 12/24/2017 ZORA JACOB MD Ot 278.00 OBESITY, NOS 12/24/2017 ZORA JACOB MD Ot 719.46 JOINT PAIN-L/LEG 12/24/2017 ZORA JACOB MD Ot 721.3 LUMBOSACRAL SPONDYLOSIS 12/24/2017 ZORA JACOB MD Ot 729.1 MYALGIA AND MYOSITIS NOS 12/24/2017 ZORA JACOB MD Ot V43.65 KNEE JOINT REPLACEMENT STATUS 12/24/2017 ZORA JACOB MD Ot V58.69 OTH MED,LT,CURRENT USE 12/24/2017 ZORA JACOB MD Ot V85.39 BODY MASS INDEX 39.0-39.9, ADULT 12/24/2017 MICHAEL LOWE Ot 285.9 ANEMIA NOS 12/24/2017 JAIME ALMEIDA DO Ot N39.0 URINARY TRACT INFECTION, SITE NOT SPECIF 12/24/2017 JAIME ALMEIDA DO Ot Z01.818 ENCOUNTER FOR OTHER PREPROCEDURAL EXAMIN 12/24/2017 MICHAEL LOWE Ot J44.9 CHRONIC OBSTRUCTIVE PULMONARY DISEASE, U 12/24/2017 DINA BRO MUSEUM DIRECTOR Ot R05 COUGH 12/24/2017 TOMMY MONTEIRO MD Ot M79.606 PAIN IN LEG, UNSPECIFIED 12/24/2017 CAYETANO MD, TOMMY A Ot R26.81 UNSTEADINESS ON FEET 12/24/2017 CAYETANO STAUFFER, TOMMY Herrera Ot R53.1 WEAKNESS 01/15/2018 CAYETANO STAUFFER, TOMMY A Ot M79.606 PAIN IN LEG, UNSPECIFIED 01/15/2018 CAYETANO STAUFFER, TOMMY A Ot R26.81 UNSTEADINESS ON FEET 01/15/2018 CAYETANO STAUFFER, TOMMY Herrera Ot R53.1 WEAKNESS 03/18/2018 CAYETANO STAUFFER, TOMMY A Ot M79.606 PAIN IN LEG, UNSPECIFIED 03/18/2018 CAYETANO STAUFFER, TOMMY Herrera Ot R26.81 UNSTEADINESS ON FEET 03/18/2018 CAYETANO TSAUFFER, TOMMY Herrera Ot R53.1 WEAKNESS 03/19/2018 CAYETANO STAUFFER, TOMMY Herrera Ot M79.606 PAIN IN LEG, UNSPECIFIED 03/19/2018 CAYETANO STAUFFER, TOMMY Herrera Ot R26.81 UNSTEADINESS ON FEET 03/19/2018 CAYETANO STAUFFER, TOMMY Herrera Ot R53.1 WEAKNESS 03/26/2018 CAYETANO STAUFFER, TOMMY Herrera Ot M79.606 PAIN IN LEG, UNSPECIFIED 03/26/2018 CAYETANO STAUFFER, TOMMY Herrera Ot R26.81 UNSTEADINESS ON FEET 03/26/2018 TOMMY MONTEIRO MD Ot R53.1 WEAKNESS 04/19/2018 CAYETANO STAUFFER, TOMMY Herrera Ot M79.604 PAIN IN RIGHT LEG 04/19/2018 CAYETANO STAUFFER, TOMMY Herrera Ot M79.605 PAIN IN LEFT LEG 04/19/2018 TOMMY MONTEIRO MD Ot R26.81 UNSTEADINESS ON FEET 04/19/2018 TOMMY MONTEIRO MD A Ot R53.1 WEAKNESS 04/19/2018 CAYETANO STAUFFER, TOMMY Herrera Ot Z96.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 LEFT ARTIFICIAL KNEE JOINT 05/09/2018 TOMMY MONTEIRO MD Ot M79.604 PAIN IN RIGHT LEG 05/09/2018 TOMMY MONTEIRO MD Ot M79.605 PAIN IN LEFT LEG 05/09/2018 TOMMY MONTEIRO MD Ot R26.81 UNSTEADINESS ON FEET 05/09/2018 TOMMY MONTEIRO MD Ot R53.1 WEAKNESS 05/09/2018 CAYETANO MD, TOMMY A Ot Z96.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 LEFT ARTIFICIAL KNEE JOINT 07/22/2018 CAYETANO STAUFFER, TOMMY A Ot M25.561 PAIN IN RIGHT KNEE 07/22/2018 CAYETANO STAUFFER, TOMMY A Ot M25.562 PAIN IN LEFT KNEE 07/22/2018 CAYETANO STAUFFER, TOMMY A Ot M54.9 DORSALGIA, UNSPECIFIED 07/29/2018 CAYETANO STAUFFER, TOMMY A Ot M25.561 PAIN IN RIGHT KNEE 07/29/2018 CAYETANO STAUFFER, TOMMY A Ot M25.562 PAIN IN LEFT KNEE 07/29/2018 CAYETANO STAUFFER, TOMMY A Ot M54.9 DORSALGIA, UNSPECIFIED 09/05/2018 CAYETANO STAUFFER, TOMMY A Ot M25.561 PAIN IN RIGHT KNEE 09/05/2018 CAYETANO STAUFFER, TOMMY A Ot M25.562 PAIN IN LEFT KNEE 09/05/2018 CAYETANO STAUFFER, TOMMY A Ot M54.9 DORSALGIA, UNSPECIFIED 09/15/2018 CAYETANO STAUFFER, TOMMY A Ot M25.561 PAIN IN RIGHT KNEE 09/15/2018 CAYETANO STAUFFER, TOMMY A Ot M25.562 PAIN IN LEFT KNEE 09/15/2018 CAYETANO STAUFFER, TOMMY A Ot M54.9 DORSALGIA, UNSPECIFIED 09/16/2018 CAYETANO STAUFFER, TOMMY A Ot M25.561 PAIN IN RIGHT KNEE 09/16/2018 CAYETANO STAUFFER, TOMMY A Ot M25.562 PAIN IN LEFT KNEE 09/16/2018 CAYETANO STAUFFER, TOMMY A Ot M54.9 DORSALGIA, UNSPECIFIED 10/07/2018 MICHAEL LOWE SALES AND PRODUCTION MANAGER Ot Z12.31 ENCNTR SCREEN MAMMOGRAM FOR MALIGNANT NE 10/29/2018 MICHAEL LOWE SALES AND PRODUCTION MANAGER Ot Z12.31 ENCNTR SCREEN MAMMOGRAM FOR MALIGNANT NE 12/18/2018 SOUTH PETERS MD Ot Z01.818 ENCOUNTER FOR OTHER PREPROCEDURAL EXAMIN 12/19/2018 SOUTH PETERS MD Ot Z01.818 ENCOUNTER FOR OTHER PREPROCEDURAL EXAMIN 12/20/2018 ISATU STAUFFER, JEEVAN Ot V72.84 EXAM PRE-OPERATIVE NOS 12/20/2018 TOMMY MONTEIRO MD Ot 401.9 HYPERTENSION NOS 12/20/2018 TOMMY MONTEIRO MD Ot 496 CHR AIRWAY OBSTRUCT NEC 12/20/2018 CAYETANO STAUFFER, TOMMY Herrera Ot 799.02 HYPOXEMIA 12/20/2018 CAYETANO STAUFFER, TOMMY Herrera Ot V76.12 OTH SCREEN MAMMO-MALIGN NEOPLASM OF SUZI 12/20/2018 ZORA JACOB MD Ot 278.00 OBESITY, NOS 12/20/2018 ZORA JACOB MD Ot 719.46 JOINT PAIN-L/LEG 12/20/2018 ZORA JACOB MD Ot 721.3 LUMBOSACRAL SPONDYLOSIS 12/20/2018 ZORA JACOB MD Ot 729.1 MYALGIA AND MYOSITIS NOS 12/20/2018 ZORA JACOB MD Ot V43.65 KNEE JOINT REPLACEMENT STATUS 12/20/2018 ZORA JACOB MD, Ot V58.69 OTH MED,LT,CURRENT USE 12/20/2018 ZORA JACOB MD Ot V85.39 BODY MASS INDEX 39.0-39.9, ADULT 12/20/2018 MICHAEL LOWE Ot 285.9 ANEMIA NOS 12/20/2018 JAIME ALMEIDA DO Ot N39.0 URINARY TRACT INFECTION, SITE NOT SPECIF 12/20/2018 JAIME ALMEIDA DO Ot Z01.818 ENCOUNTER FOR OTHER PREPROCEDURAL EXAMIN 12/20/2018 MICHAEL LOWE Ot J44.9 CHRONIC OBSTRUCTIVE PULMONARY DISEASE, U 12/20/2018 DINA BRO APRN Ot R05 COUGH 12/20/2018 MICHAEL LOWE Ot Z12.31 ENCNTR SCREEN MAMMOGRAM FOR MALIGNANT NE Procedures Code Description Performed By Performed On 81.54 TOTAL KNEE REPLACEMENT 06/19/2012 Results Test Result Range Complete blood count (CBC) with automated white blood cell (WBC) differential - 02/08/17 13:55 Blood leukocytes automated count (number/volume) 10.1 10*3/uL 4.3-11.0 Blood erythrocytes automated count (number/volume) 4.32 10*6/uL 4.35-5.85 Venous blood hemoglobin measurement (mass/volume) 12.4 g/dL 11.5-16.0 Blood hematocrit (volume fraction) 40 % 35-52 Automated erythrocyte mean corpuscular volume 93 [foz_us] 80-99 Automated erythrocyte mean corpuscular hemoglobin (mass per erythrocyte) 29 pg 25-34 Automated erythrocyte mean corpuscular hemoglobin concentration measurement ( mass/volume) 31 g/dL 32-36 Automated erythrocyte distribution width ratio 14.1 % 10.0-14.5 Automated blood platelet count (count/volume) 269 10*3/uL 130-400 Automated blood platelet mean volume measurement 9.9 [foz_us] 7.4-10.4 Automated blood neutrophils/100 leukocytes 71 % 42-75 Automated blood lymphocytes/100 leukocytes 16 % 12-44 Blood monocytes/100 leukocytes 9 % 0-12 Automated blood eosinophils/100 leukocytes 4 % 0-10 Automated blood basophils/100 leukocytes 0 % 0-10 Blood neutrophils automated count (number/volume) 7.2 10*3 1.8-7.8 Blood lymphocytes automated count (number/volume) 1.6 10*3 1.0-4.0 Blood monocytes automated count (number/volume) 0.9 10*3 0.0-1.0 Automated eosinophil count 0.4 10*3/uL 0.0-0.3 Automated blood basophil count (count/volume) 0.0 10*3/uL 0.0-0.1 Complete urinalysis with reflex to culture - 02/08/17 15:00 Urine color determination YELLOW NRG Urine clarity determination CLEAR NRG Urine pH measurement by test strip 5 5-9 Specific gravity of urine by test strip 1.025 1.016- 1.022 Urine protein assay by test strip, semi-quantitative NEGATIVE NEGATIVE Urine glucose detection by automated test strip NEGATIVE NEGATIVE Erythrocytes detection in urine sediment by light microscopy NEGATIVE NEGATIVE Urine ketones detection by automated test strip NEGATIVE NEGATIVE Urine nitrite detection by test strip NEGATIVE NEGATIVE Urine total bilirubin detection by test strip NEGATIVE NEGATIVE Urine urobilinogen measurement by automated test strip (mass/volume) NORMAL NORMAL Urine leukocyte esterase detection by dipstick 1+ NEGATIVE Automated urine sediment erythrocyte count by microscopy (number/high power field) NONE NRG Automated urine sediment leukocyte count by microscopy (number/high power field ) [HPF] NRG Bacteria detection in urine sediment by light microscopy NONE NRG Squamous epithelial cells detection in urine sediment by light microscopy 2-5 NRG Crystals detection in urine sediment by light microscopy NONE NRG Casts detection in urine sediment by light microscopy NONE NRG Mucus detection in urine sediment by light microscopy NEGATIVE NRG Complete urinalysis with reflex to culture NO NRG Complete urinalysis with reflex to culture - 03/25/17 07:11 Urine color determination YELLOW NRG Urine clarity determination SLIGHTLY CLOUDY NRG Urine pH measurement by test strip 8 5-9 Specific gravity of urine by test strip 1.010 1.016- 1.022 Urine protein assay by test strip, semi-quantitative 1+ NEGATIVE Urine glucose detection by automated test strip NEGATIVE NEGATIVE Erythrocytes detection in urine sediment by light microscopy NEGATIVE NEGATIVE Urine ketones detection by automated test strip NEGATIVE NEGATIVE Urine nitrite detection by test strip NEGATIVE NEGATIVE Urine total bilirubin detection by test strip NEGATIVE NEGATIVE Urine urobilinogen measurement by automated test strip (mass/volume) 1 mg/dL NORMAL Urine leukocyte esterase detection by dipstick NEGATIVE NEGATIVE Automated urine sediment erythrocyte count by microscopy (number/high power field) NONE NRG Automated urine sediment leukocyte count by microscopy (number/high power field ) NONE NRG Bacteria detection in urine sediment by light microscopy NEGATIVE NRG Squamous epithelial cells detection in urine sediment by light microscopy 2-5 NRG Crystals detection in urine sediment by light microscopy NONE NRG Casts detection in urine sediment by light microscopy NONE NRG Mucus detection in urine sediment by light microscopy NEGATIVE NRG Complete urinalysis with reflex to culture NO NRG Complete blood count (CBC) with automated white blood cell (WBC) differential - 03/25/17 08:06 Blood leukocytes automated count (number/volume) 8.9 10*3/uL 4.3-11.0 Blood erythrocytes automated count (number/volume) 4.33 10*6/uL 4.35-5.85 Venous blood hemoglobin measurement (mass/volume) 12.2 g/dL 11.5-16.0 Blood hematocrit (volume fraction) 40 % 35-52 Automated erythrocyte mean corpuscular volume 91 [foz_us] 80-99 Automated erythrocyte mean corpuscular hemoglobin (mass per erythrocyte) 28 pg 25-34 Automated erythrocyte mean corpuscular hemoglobin concentration measurement ( mass/volume) 31 g/dL 32-36 Automated erythrocyte distribution width ratio 14.4 % 10.0-14.5 Automated blood platelet count (count/volume) 336 10*3/uL 130-400 Automated blood platelet mean volume measurement 9.3 [foz_us] 7.4-10.4 Automated blood neutrophils/100 leukocytes 56 % 42-75 Automated blood lymphocytes/100 leukocytes 30 % 12-44 Blood monocytes/100 leukocytes 11 % 0-12 Automated blood eosinophils/100 leukocytes 3 % 0-10 Automated blood basophils/100 leukocytes 1 % 0-10 Blood neutrophils automated count (number/volume) 5.0 10*3 1.8-7.8 Blood lymphocytes automated count (number/volume) 2.7 10*3 1.0-4.0 Blood monocytes automated count (number/volume) 0.9 10*3 0.0-1.0 Automated eosinophil count 0.2 10*3/uL 0.0-0.3 Automated blood basophil count (count/volume) 0.1 10*3/uL 0.0-0.1 Comprehensive metabolic panel - 03/25/17 08:06 Serum or plasma sodium measurement (moles/volume) 140 mmol/L 135-145 Serum or plasma potassium measurement (moles/volume) 4.6 mmol/L 3.6-5.0 Serum or plasma chloride measurement (moles/volume) 102 mmol/L 98-107 Carbon dioxide 32 mmol/L 21-32 Serum or plasma anion gap determination (moles/volume) 6 mmol/L 5-14 Serum or plasma urea nitrogen measurement (mass/volume) 12 mg/dL 7-18 Serum or plasma creatinine measurement (mass/volume) 0.71 mg/dL 0.60-1.30 Serum or plasma urea nitrogen/creatinine mass ratio 17 NRG Serum or plasma creatinine measurement with calculation of estimated glomerular filtration rate > NRG Serum or plasma glucose measurement (mass/volume) 102 mg/dL 70-105 Serum or plasma calcium measurement (mass/volume) 9.6 mg/dL 8.5-10.1 Serum or plasma total bilirubin measurement (mass/volume) 0.7 mg/dL 0.1-1.0 Serum or plasma alkaline phosphatase measurement (enzymatic activity/volume) 84 U/L 40-136 Serum or plasma aspartate aminotransferase measurement (enzymatic activity/ volume) 23 U/L 5-34 Serum or plasma alanine aminotransferase measurement (enzymatic activity/volume ) 13 U/L 0-55 Serum or plasma protein measurement (mass/volume) 6.7 g/dL 6.4-8.2 Serum or plasma albumin measurement (mass/volume) 3.8 g/dL 3.2-4.5 Magnesium - 03/25/17 08:06 Magnesium 2.6 mg/dL 1.8-2.4 Encounters ACCT No. Visit Date/Time Discharge Status Pt. Type Provider Facility Loc./Unit Complaint [id number] 12/20/2018 08:50:00 12/20/2018 10:41:00 [facility] [id number] 12/18/2018 05:41:00 12/18/2018 13:12:00 DIS Outpatient SOUTH PETERS MD [facility] PREOP CATARACT LEFT EYE [id number] 10/07/2018 09:31:00 10/07/2018 23:59:59 CLS Outpatient MICHAEL LOWE [facility] RAD SCREENING [id number] 09/16/2018 00:12:00 09/16/2018 23:59:59 CLS [facility]read[facility] [id number] 07/25/2018 14:01:00 09/15/2018 00:01:00 DIS Outpatient TOMMY MONTEIRO MD [facility] REHAB KNEE AND BACK PAIN [id number] 09/03/2018 13:29:00 09/03/2018 23:59:59 CLS Preadmit TOMMY MONTEIRO MD [facility] RAD SCREENING MAMMO [id number] 05/09/2018 13:00:00 05/09/2018 13:55:00 DIS Outpatient TOMMY MONTEIRO MD [facility] REHAB KNEE PAIN; GENERAL WEAKNESS [id number] 03/14/2018 15:16:00 03/18/2018 00:01:00 DIS Outpatient TOMMY MONTEIRO MD [facility] REHAB KNEE PAIN; GENERAL WEAKNESS [id number] 09/07/2017 11:46:00 09/07/2017 23:59:59 CLS Outpatient DINA BRO APRN [facility] RAD SHORTNESS OF BREATH [id number] 06/01/2017 10:58:00 07/24/2017 14:35:00 DIS Outpatient JAIME ALMEIDA DO [facility] REHAB S/P LEFT TOTAL KNEE REPLACEMENT [id number] 05/25/2017 10:30:00 05/26/2017 00:01:00 DIS Outpatient JAIME ALMEIDA DO [facility] REHAB S/P LEFT TOTAL KNEE REPLACEMENT [id number] 03/25/2017 07:06:00 03/25/2017 08:53:00 DIS Emergency JASON JULIO MD [facility] ER BLADDER INFECTION [id number] 02/08/2017 13:24:00 02/08/2017 23:59:59 CLS Outpatient MICHAEL LOWE [facility] RAD COUGH [id number] 02/08/2017 13:17:00 02/08/2017 23:59:59 CLS Outpatient JAIME ALMEIDA DO [facility] LAB UTI PRE OP TESTING [id number] 03/21/2016 10:51:00 04/04/2016 17:00:00 DIS Outpatient TOMMY MONTEIRO MD [facility] REHAB LYMPHEDEMA BILATERAL LE [id number] 12/07/2014 12:14:00 12/07/2014 13:33:00 DIS Outpatient ZORA JACOB MD [facility] CARD RT KNEE PAIN [id number] 09/21/2014 15:00:00 09/21/2014 23:59:59 CLS Outpatient ZORA JACOB MD [facility] CARD KNEE PAIN [id number] 09/03/2014 11:53:00 09/03/2014 23:59:59 CLS Outpatient MICHAEL LOWE [facility] LAB ANEMIA, SLIGHTLY ELEVATED WBC [id number] 08/24/2014 13:51:00 08/24/2014 23:59:59 CLS Outpatient ZORA JACOB MD [facility] CARD KNEE PAIN [id number] 07/22/2014 09:16:00 07/22/2014 23:59:59 CLS Outpatient TOMMY MONTEIRO MD [facility] RAD ROUTINE,COPD [id number] 12/31/2013 16:55:00 12/31/2013 18:52:00 DIS Emergency GALILEO ARREGUIN [facility] ER FALL; R WRIST PAIN [id number] 10/15/2013 08:29:00 10/15/2013 12:15:00 DIS Outpatient JEEVAN LUNSFORD MD [facility] SCREENING/REFLUX [id number] 10/08/2013 07:28:00 10/08/2013 23:59:59 CLS Outpatient JEEVAN LUNSFORD MD [facility] PREOP SCREENING/REFLUX [id number] 04/18/2013 08:04:00 04/18/2013 23:59:59 CLS Outpatient TOMMY MONTEIRO MD [facility] RAD POST MENOPAUSAL OSTEOPOROSIS [id number] 03/05/2013 08:47:00 03/05/2013 23:59:59 CLS Outpatient TOMMY MONTEIRO MD [facility] RAD ROUTINE [id number] 12/27/2018 11:15:00 PEN Preadmit SOUTH PETERS MD [facility] YAG [id number] 08/24/2014 13:52:00 Document Registration [id number] 09/11/2012 11:44:00 Document Registration [id number] 06/19/2012 05:48:00 Document Registration [id number] 06/13/2012 07:58:00 Document Registration [id number] 01/17/2012 08:27:00 Document Registration [id number] 04/24/2011 07:38:00 Document Registration [id number] 06/10/2010 09:11:00 Document Registration [id number] 05/18/2010 05:44:00 Document Registration [id number] 05/11/2010 09:00:00 Document Registration [id number] 04/20/2010 13:27:00 Document Registration [id number] 05/25/2009 09:32:00 Document Registration
== END 2018-12-27 10:40 | disposition home or self-care (01) ==
LOC: SDC 09:35
PROVIDERS: ATTEND Specialist
DX: H26.491 Other secondary cataract, right eye (principal); I10 Essential (primary) hypertension; E03.9 Hypothyroidism, unspecified; E78.00 Pure hypercholesterolemia, unspecified; Z87.891 Personal history of nicotine dependence; Z79.82 Long term (current) use of aspirin; Z79.899 Other long term (current) drug therapy

== ENCOUNTER → 2019-12-22 | Outpatient (CLI) | payer MEDICARE ==
[~2019-12-22] MED LIST changes: -MONT10TA24 PO; +MONT10TA26 PO; -ROSU10TA27 PO; +ROSU10TA28 PO
== END ==
LOC: CARD 09:45
PROVIDERS: ATTEND Nurse Practitioner Family
DX: I49.9 Cardiac arrhythmia, unspecified (principal)
CPT/HCPCS: 93005

== ENCOUNTER → 2019-12-29 | Outpatient (CLI) | payer MEDICARE | LOC: CARD 14:13 | PROVIDERS: ATTEND Nurse Practitioner Family | DX: I48.91 Unspecified atrial fibrillation (principal); I34.0 Nonrheumatic mitral (valve) insufficiency | CPT/HCPCS: 93306 ==

== ENCOUNTER 2020-01-02 11:20 | Outpatient (RCR) | payer MEDICARE | END 2020-01-05 | disposition home or self-care (01) | LOC: CARD 11:20 | PROVIDERS: ATTEND Internal Medicine Interventional Cardiology | DX: I48.19 Other persistent atrial fibrillation (principal) ==

== ENCOUNTER 2020-01-05 00:21 | Emergency (ER) | payer MEDICARE ==
[~2020-01-05] VITALS: Ht 158 cm; Wt 102.0 kg
[2020-01-05] MEDS ORDERED: EPINEPHrine 0.1 MG/ML 10 ML (HOSPIRA) SYR INJ ONE (00:27)
--- NOTE | 2020-01-05 00:52 | ED CPR ---
HPI-CPR General Stated Complaint: POST CODE Source of Information: Patient, EMS, Spouse (Ravinder) Exam Limitations: Other (orotracheally intubated) History of Present Illness Date Seen by Provider: January 05, 2020 Time Seen by Provider: 00:21 Initial Comments Patient presents to ER by EMS from home with chief complaint she was found laying down on the ground unknown amount of time. Family called 911 about 2348 and initiated bystander CPR. When fire arrived they put an AED on her which recommended delivering shocks twice. By the time EMS arrived the patient had return of spontaneous circulation. No epinephrine was given. EMS brought the patient to the ER after establishing an Igel and an IO in the left humerus. On arrival patient had no pulse and high quality CPR was initiated. Allergies and Home Medications Allergies Coded Allergies: morphine (Verified Allergy, Mild, CONFUSION, 12/18/18) Home Medications Alprazolam 0.25 Mg Tablet, 0.25 MG PO HS PRN for INSOMNIA, (Reported) Aspirin 81 Mg Tab.chew, 81 MG PO DAILY, (Reported) Bimatoprost 2.5 Ml Drops, OP HS, (Reported) Calcium Carbonate/Vitamin D3 1 Each Tablet, 1 EACH PO DAILY, (Reported) Candesartan Cilexetil Unknown Strength Tablet, Unknown Dose PO DAILY, (Reported) Diltiazem HCl 240 Mg Cap.er.24h, 240 MG PO DAILY, (Reported) Docusate Sodium 100 Mg Tablet, 100 MG PO DAILY PRN for CONSTIPATION-1ST LINE, (Reported) Furosemide 40 Mg Tablet, 40 MG PO DAILY, (Reported) L. Acidophilus/Bulgaricus 1 Each Tab.chew, 3 EACH PO PRN, (Reported) Levothyroxine Sodium 50 Mcg Tablet, 50 MCG PO DAILY, (Reported) Meloxicam 15 Mg Tablet, 15 MG PO DAILY, (Reported) Montelukast Sodium 10 Mg Tablet, 10 MG PO HS, (Reported) Montelukast Sodium 10 Mg Tablet, 10 MG PO DAILY, (Reported) Potassium Chloride 10 Meq Capsule.er, 10 MEQ PO DAILY, (Reported) Rosuvastatin Calcium 10 Mg Tablet, 10 MG PO DAILY, (Reported) Patient Home Medication List Home Medication List Reviewed: Yes Review of Systems Review of Systems Constitutional: see HPI (per her the patient has not had any sickness or complaints of chest pain shortness of breath, trauma or other symptoms. 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 0.0oz. 102.598924mr; BMI Method:Estimated General Appearance: Obese, Severe Distress HEENT: Moist Mucous Membranes, Other (Eyes closed, pupils fixed 2 mm bilateral nonreactive) Respiratory: Respiratory Distress (severe), Other (orotracheally intubated with a bag valve for ventilation on 100% FiO2.) Cardiovascular: Other (warm, mottled, mild diaphoretic) Gastrointestinal: Abnormal Bowel Sounds (absent), Distended Neurologic/Psychiatric: Other (GCS 3T) Skin: Damp, Mottled Procedures/Interventions Reason for Intubation: CPR Date of ETT Placement: January 05, 2020 Time of ETT Placement: 00:26 Intubation Method: orotracheal Tube Size: 7.5 Positive End Tide CO2: Yes (tube was fogged and bilateral breath sounds were auscultated) Breath Sounds after Intubation: bilateral-equal Intubation Complications: no complications Post Intubation Xray: No End tidal CO2 of 42, SPO2 93% on 100% FiO2, ET tube was fogged and colorimetric capnography paper changed colors appropriately. Bilateral chest rise with good breath sounds heard without breath sounds heard over the epigastric region. Progress/Results/Core Measures Progress Progress Note #1: Time: 00:40 Progress Note Were not discussed the case with the spouse and that it was not looking good. He stated that if we were not able to bring her back by now that she would wish to be worked on any further. After having a long discussion we elected to discontinue resuscitative efforts. Progress Note #2: Time: 01:23 Progress Note Didn't have a phone number for matt but we did go call the [facility] and they did not have any need to get involved in this case. Relieve some distress for the family at their request we have removed the ET tube. Critical Care Note Critical Care Start Time: 00:21 Stop Time: 00:45 Total Time (minutes) 24 min Date of : January 05, 2020 Time of : 00:45 Progress Patient had about half a liter of saline in her left IO. We put a pressure bag. Epinephrine was administered and CPR with high quality compression was initiated on arrival. Within a few minutes and had removed the eye gel to replace a definitive 7.5 ET tube at 23 at the teeth. Had good signs of oxygenation afterwards. After we replaced the Ambu bag we got her oxygen sats up from 90% to 98% on 100% FiO2. See nursing notes for epinephrine administration times. That pulse checks initially the patient had PEA. Final pulse check at 0042 [facility] ed disorganized ventricular fibrillation. 120 J was delivered which terminated the rhythm and immediately compressions were resumed. Family had arrived so this provider went out and spoke to the spouse, Ravinder. He said that the patient admitted clear in the past she did not want to be coded. We had a discussion and it was decided to terminate resuscitative efforts. The made the patient presents above and brought family into the room said they could do appropriate grieving. Per their request [facility] was contacted. [employer] was paged. Registration desk made attempts to get a hold of a procurement consultant at [employer]. Departure Impression Primary Impression: Cardiopulmonary arrest Additional Impression: Disposition: 20 Condition: Departure-Patient Inst. Decision time for Depature: 00:45 Referrals: TOMMY MONTEIRO MD (PCP/Family) Primary Care Physician Patient Instructions: Sudden Cardiac Arrest JASON JULIO January 05, 2020 00:51
--- OUTSIDE RECORDS SUMMARY | 2020-01-05 00:52 | XMS REPORT ---
Author Author [employer]icies [facility] Digital Path Address [address] [address] Care Team Providers Care Lead Refinery Supervisor Name Role Phone TOMMY FLANAGAN Unavailable JAIME ALMEIDA Unavailable TOMMY FLANAGAN Unavailable TOMMY FLANAGAN MD Unavailable Unavailable JASON JULIO Unavailable Unavailable JAIME ALMEIDA DO Unavailable Unavailable CHAPARRITA LOWEP Unavailable Unavailable DINA BRO APRN Unavailable Unavailable ISATU STAUFFER, JEEVAN Unavailable Unavailable ZORA JACOB MD Unavailable Unavailable GALILEO ARREGUIN Unavailable Unavailable CHAPARRITA SYED Unavailable Unavailable CHAPARRITA LOEW Unavailable Unavailable JAIME ALMEIDA DO Unavailable Unavailable Tommy Flanagan Unavailable Unavailable Tommy Flanagan MD, [facility] Unavailable Unavailable Tommy Flanagan PP Unavailable Tommy Flanagan MD, [facility] Unavailable TOMMY FLANAGAN PCP [facility] Unavailable Unavailable Tommy Flanagan PP Unavailable Tommy Flanagan Unavailable Unavailable Unavailable Unavailable LEO STAUFFER, CLAUDIA BARAHONA Unavailable Unavailable Unavailable Unavailable Unavailable Unavailable Unavailable Unavailable Unavailable Unavailable Unavailable Unavailable Allergies Normalized Allergy Reported Date of Reaction(s) Care Provider Facility Allergy Type classification allergen Allergy Onset Envt Allergy Unclassified * NO KNOWN 09-20-2011 - no information Tommy Flanagan (1 source.) ENVIRONMENTAL [address] EDGARDO STAUFFER ALLERGIES ([id number]) (Work Phone: ) Food Allergy Unclassified * NO KNOWN 09-20-2011 - no information Tommy Flanagan (1 source.) FOOD ALLERGIES [address] EDGARDO STAUFFER ([id number]) (Work Phone: ) Drug Allergy Opioid Morphine 04-12-2017 - CONFUSION, JEEVAN TRISTAN , [facility] Via (21 sources.) Agonists Translations: Morphine Chri sti Translations: [ [facility] - [ Drug SULFATE] [place] Allergy, (30686) Allergy to Substance] DA (20 Unclassified No Known Drug 05-18-2010 - no information JAIME ALMEIDA , Not Available sources.) Allergies DO (82144) Medications Medication Ingredient Drug Dose Dates Status Sig Sig Care Class(es) (Normalized) (Original) Provid er no Albuterol no 12-19-19 Complete no Albuterol (no information (Albuterol information 19 d information (Al buterol phone) (4 Sulfate Sulfate Hfa) sources.) Hfa) 8.5 Gm 8.5 Gm Hfa.aer.ad, Hfa.aer.ad, 8.5 Gm 8.5 Gm Respiratory Respiratory (Inhalation (Inhalation) ) Every 4HRS as needed Discontinued amLODIPine amLODIPine Dihydropyri 10 mg 10-09-19 Complete take 1 amlodipine Tommy 10 mg oral Translation dine 12 - d tablet by 10 mg Tab 1 Cranst tablet (20 s: [ Calcium 12-03-19 mouth once Tablet(s) PO on sources.) Norvasc 5 Channel 12 daily daily Other mg tablet, Krishan Phone: amlodipine 1(620) 10 mg Tab] 232-69 81 5 mg 09-20-2011 Completed take 1 amlodipi Tommy - tablet ne 5 mg Panchito 10-12-2014 by Tab 1 Other mouth Tablet(s Phone: once ) PO [phone])23 daily daily 2-5581 amoxicillin Amoxicillin Penicillin- 03-12-20 Complete take 1 Mar mentin Tommy 875 mg / / class 13 - d tablet by 875 mg-125 Cranst clavulanate Clavulanate Antibacteri 03-18-20 mouth twice mg ta blet 1 on 125 mg oral al 13 daily Tablet(s) PO Other tablet (20 BID Phone: sources.) 03-12-2013 Completed no Augmenti Tommy - inform n [address] 03-18-2013 ation mg-125 Other mg Phone: tablet 1 1(620)23 Tablet(s 2-1098 ) PO BID 08-25-2011 Completed no Augmenti Edita - inform n 875 e Chrissy 09-20-2011 ation mg-125 Other mg Tab 1 Phone: Tablet(s [phone])73 ) PO BID 2-5581 08-25-2011 Completed no Augmenti Edita - inform n [address] [place] 09-20-2011 ation mg-125 Other mg Tab 1 Phone: Tablet(s [phone])90 ) PO BID 2-5581 azithromyci Azithromyci Macrolide 250 mg 08-09-20 Complete no Zithromax Stepha n 250 mg n Antimicrobi 17 - d information Z-Hebert 250 mg jordan oral tablet Translation al 08-13-20 tablet 1 Lowe ( s: [ 17 Tablet(s) PO Other sources.) Zithromax UD Phone: Z-Hebert 250 1620) mg tablet] 232-55 81 250 mg 02-05-2017 Completed no Zithroma Edita - inform x Z-Hebert e [place] 02-09-2017 ation 250 mg Other tablet 1 Phone: Tablet(s 1(268)86 ) PO UD 2-5581 250 mg 08-14-2014 Completed no Zithroma Edita - inform x Z-Hebert e [place] 09-06-2016 ation 250 mg Other tablet 1 Phone: Tablet(s [phone])23 ) PO UD 2-5581 bimatoprost bimatoprost Prostagland 0.25 Complete take 2.5 m L Bimatoprost (no 0.1 mg/ml in Analog mg/mL d into the ([employer]) phone ) ophthalmic eye(s) at 2.5 Ml Drops solution (4 bedtime OPTHALMIC sources.) Bedtime calcium Calcium Vitamin D Complete no Calcium (no carbonate Carbonate / d information Carbonate/Vi bushra ne) 1250 mg / Cholecalcif tamin D3 cholecalcif coleman (Calcium 500 coleman 400 + D Tablet) unt oral 1 Each tablet (4 Tablet 1 sources.) Each ORAL Daily no Calcium no 12-19-19 Complete no Calcium (no information Carbonate/V information 19 d information Ca rbonate/Vi phone) (4 itamin D3 tamin D3 sources.) (Calcium (Calcium 600 600 + D + D Caplet) Caplet) 1 1 Each Each Tablet, 1 Tablet, 1 Tab Oral Tab Oral Daily Discontinued candesartan candesartan Angiotensin 16 mg 11-07-19 no take 1 Atacand 16 Dina cilexetil Translation 2 Receptor 19 - informat tablet by mg ta blet 1 Surya 16 mg oral s: [ Krishan 10-31-19 ion mouth once Tablet(s) P O Other tablet (16 candesartan 20 daily daily Phone: sources.) cilexetil 1(164) 16 MG Oral 232-55 Tablet] 81 cefdinir cefdinir Cephalospor 300 mg 09-12-19 Complete take 1 ce fdinir 300 Tommy 300 mg oral in 18 - d capsule by mg capsule 1 Cranst capsule (20 Antibacteri 09-25-19 mouth twice Capsule(s) on sources.) al 18 daily PO BID Other Phone: 300 mg 08-13-2017 Completed take 1 cefdinir Edita - capsul 300 mg e [place] 08-12-2017 e by capsule Other mouth 1 Phone: twice Capsule( [phone] daily s) PO 2-5581 BID 300 mg 08-13-2017 Completed take 1 cefdinir Edita - capsul 300 mg e [place] 08-19-2017 e by capsule Other mouth 1 Phone: twice Capsule( [phone])23 daily s) PO 2-5581 BID 300 mg 08-13-2017 Completed take 1 cefdinir Edita - capsul 300 mg e [place] 08-19-2017 e by capsule Other mouth 1 Phone: twice Capsule( 1(479)23 daily s) PO 2-5581 BID 300 mg 08-22-2016 Completed take 1 cefdinir Edita - capsul 300 mg e [place] 08-28-2016 e by capsule Other mouth 1 Phone: twice Capsule( [phone])23 daily s) PO 2-5581 BID 300 mg 05-07-2014 Completed take 1 cefdinir Edita - capsul 300 mg e [place] 05-16-2014 e by capsule Other mouth 1 Phone: twice Capsule( [phone])23 daily s) PO 2-5581 BID cefTRIAXone cefTRIAXone Cephalospor 500 mg 08-09-20 Complete no ceftriaxone Stepha 500 mg Translation in 17 - d information 500 mg jordan injection s: [ Antibacteri 08-09-20 solution for Lowe (20 Rocephin al 17 injection Other sources.) 500 mg Inj Phone: solution [phone] for 232-55 injection, 81 ceftriaxone 500 mg solution for injection] 500 mg 05-07-2014 Completed no Rocephin Edita - inform 500 mg e [place] 05-07-2014 ation solution Other for Phone: injectio [phone])23 n 1 2-5581 Millilit er(s) Inj 500 mg 05-07-2014 Completed no Rocephin Edita - inform 500 mg e [place] 05-07-2014 ation solution Other for Phone: injectio [phone])23 n 1 2-5581 Millilit er(s) Inj 500 mg 12-26-2013 Completed no Rocephin Edita - inform 500 mg e [place] 12-26-2013 ation solution Other for Phone: injectio 1(620)23 n Inj 2-5581 500 mg 12-26-2013 Completed no Rocephin Edita - inform 500 mg e [place] 12-26-2013 ation solution Other for Phone: injectio [phone])23 n Inj 2-5581 500 mg 10-09-2013 Completed no Rocephin Edita - inform 500 mg e [place] 10-09-2013 ation solution Other for Phone: injectio 1(620)23 n 1 2-5581 Millilit er(s) Inj 500 mg 10-09-2013 Completed no Rocephin Edita - inform 500 mg e [place] 10-09-2013 ation solution Other for Phone: injectio [phone])23 n 1 2-5581 Millilit er(s) Inj 500 mg 08-30-2011 Completed no Rocephin Tommy - inform [address] 09-20-2011 ation Solution Other for Phone: Injectio [phone])23 n Inj 2-5581 500 mg 08-30-2011 Completed no Rocephin Tommy - inform 500 mg Panch[place] 09-20-2011 ation Solution Other for Phone: Injectio [phone])23 n Inj 2-5581 500 mg 08-23-2011 Completed no Rocephin Edita - inform 500 mg e [place] 08-23-2011 ation Solution Other for Phone: Injectio [phone])23 n Inj 2-5581 500 mg 08-23-2011 Completed no Rocephin Edita - inform 500 mg e [place] 08-23-2011 ation Solution Other for Phone: Injectio [phone])23 n Inj 2-5581 500 mg Completed no no no name inform informat ation ion no Centrum no 04-24-20 Complete no Centrum no information Silver information 18 d information Silver Ultra name (4 Ultra Women's oral sources.) Women's oral oral no Centrum no 03-11-20 no no Centrum Tommy information Silver information 19 informat information Silve r Ultra Cranst (4 Ultra ion Women's on sources.) Women's tablet Other tablet Tablet(s) PO Phone: cephalexin cephalexin Cephalospor 500 mg 05-02-20 Complete take 1 Keflex 500 Dina 500 mg oral in 19 - d capsule by mg capsule 1 Surya capsule (20 Antibacteri 05-08-20 mouth three Capsule(s) Othe r sources.) al 19 times daily PO TID PRN Phone: as needed [phone] 500 mg 04-30-2018 Completed take 1 Keflex Edita - capsul 500 mg e [place] 05-06-2018 e by capsule Other mouth 1 Phone: three Capsule( 1(638)23 times s) PO 2-5581 daily TID PRN as needed 500 mg 08-28-2017 Completed take 1 Keflex Dina - capsul 500 mg Surya 08-27-2017 e by capsule Other mouth 1 Phone: three Capsule( 1(620)23 times s) PO 2-5581 daily TID 500 mg 08-28-2017 Completed take 1 Keflex Dina - capsul 500 mg Surya 09-03-2017 e by capsule Other mouth 1 Phone: three Capsule( 1(620)23 times s) PO 2-5581 daily TID 500 mg 08-28-2017 Completed take 1 Keflex Dina - capsul 500 mg Surya 09-03-2017 e by capsule Other mouth 1 Phone: three Capsule( 1(620)23 times s) PO 2-5581 daily TID ciprofloxac Ciprofloxac Quinolone 500 mg 02-02-20 Complete take 1 Cipro 500 mg no in 500 mg in Antimicrobi 17 - d tablet by tablet 1 n [place] oral tablet Translation al 02-08-20 mouth twice Tablet( s) PO (20 s: [ Cipro 17 daily BID sources.) 500 mg tablet] 500 mg 03-11-2013 Completed take 1 ciproflo Tommy - tablet xacin Panchito 03-10-2013 by 500 mg Other mouth tablet 1 Phone: twice Tablet(s 1(624)23 daily ) PO BID 2-5581 500 mg 03-11-2013 Completed take 1 ciproflo Tommy - tablet xacin Panch[place] 03-17-2013 by 500 mg Other mouth tablet 1 Phone: twice Tablet(s 1(459)82 daily ) PO BID 2-5581 500 mg 11-21-2011 Completed take 1 Cipro Tommy - tablet 500 mg Panchito 03-12-2012 by Tab 1 Other mouth Tablet(s Phone: twice ) PO BID 1(629)86 daily 2-5581 diclofenac Diclofenac Nonsteroida 1 % 06-26-20 Complete no Voltaren 1 % Tommy sodium 0.01 Translation l 18 - d information topical gel Cranst mg/mg s: [ Anti-inflam 09-23-19 APPLY TWO on topical gel Pennsaid matory Drug 19 GRAMS Other (20 1.5 % TOPICALLY Phone: sources.) topical FOUR TIMES A 1620) drops] DAY 232-55 BILATERAL 81 KNEES AND LOWER BACK 2 % 05-29-2018 Completed no Voltaren Tommy - inform 1 % [place] 06-25-2018 ation topical Other gel 2 Phone: Gram(s) 1(159)45 TOP QID 2-5581 bilatera l knees and low back 1 % 05-29-2018 Completed no Voltaren Tommy - inform 1 % Panchito 06-25-2018 ation topical Other gel 2 Phone: Gram(s) 1(810)51 TOP QID 2-5581 bilatera l knees and low back 1.5 % 12-29-2013 Completed apply Pennsaid Edita - 15-20 1.5 % e [place] 01-17-2016 drop(s topical Other ) drops Phone: topica Drop(s) 1(311)23 lly TOP 2-5581 four APPLY 15 times - 20 daily DROPS TOPICALL Y FOUR TIMES A DAY 1.5 % 10-28-2012 Completed apply Pennsaid no name - 15-20 1.5 % 10-27-2012 drop(s Topical ) Drops topica 15-20 lly Drop(s) four TOP QID times daily 1.5 % 10-28-2012 Completed apply Pennsaid Tommy - 15-20 1.5 % [place] 11-21-2013 drop(s topical Other ) drops Phone: topica 15-20 1(367)23 lly Drop(s) 2-5581 four TOP QID times daily no Diltiazem no 12-19-19 Complete take 1 Diltiazem (no information Hcl information 19 d capsule by Hcl phone) (4 (Diltiazem mouth once (Diltiazem sources.) Er 180 Mg daily Er 180 Mg (Tiazac)) (Tiazac)) 180 Mg 180 Mg Capsule.sa, Capsule.sa, 1 Each Oral 1 Each Oral Daily Discontinued docusate Docusate no 100 mg 01-18-20 no take 1 Colace 10 0 Stepha sodium 100 information 16 - informat capsule by mg capsule 1 jordan mg oral 04-24-20 ion mouth once Capsule(s) Lowe capsule (20 18 daily as PO daily as Other sources.) needed needed Phone: 100 mg 01-18-2016 no no Colace Edita - information inform 100 mg e [place] 04-24-2018 ation capsule Other 1 Phone: Capsule( [phone])23 s) PO 2-5581 daily as needed no Docusate no 100 mg Complete take 1 Docusate (no information Sodium information d tablet by Sodium phone) (1 source.) (Colace) mouth twice (Colace) 100 100 Mg daily Mg Capsule 1 Capsule Tab ORAL Twice A Day no Docusate no 12-19-19 Complete no Docusate (no information Sodium information 19 d information Sodium phone) (4 (Colace) (Colace) 100 sources.) 100 Mg Mg Capsule, Capsule, 1 1 Tab Oral Tab Oral Twice A Day Discontinued no Docusate no 100 mg Complete take 1 Docusate (no information Sodium 100 information d tablet by Sodium 1 00 phone) (4 Mg Tablet mouth once Mg Tablet sources.) daily as 100 Mg ORAL needed for Daily as constipation needed for Constipation -1ST Line doxycycline Doxycycline Tetracyclin 100 mg 03-11-20 Complete take 1 doxycycline Tommy hyclate 100 e-class 19 - d tablet by hyclate 100 C ranst mg oral Drug 03-20-20 mouth twice mg tablet 1 on tablet (4 19 daily Tablet(s) PO Other sources.) BID Phone: escitalopra Escitalopra Serotonin 5 mg 07-18-20 Complete take 1 Lexapro 5 mg Stepha m 5 mg oral m Reuptake 16 - d tablet by tablet TAKE jordan tablet (20 Translation Inhibitor 09-06-19 mouth once ONE TABLE T Lowe sources.) s: [ 17 daily in the BY MOUTH Other Lexapro 10 evening EVERY Phone: mg tablet, EVENING 1(620) Lexapro 10 232-55 mg tablet] 81 10 mg 06-08-2016 Completed take 1 Lexapro Tommy - tablet 10 mg Panchito 01-03-2017 by tablet 1 Other mouth Tablet(s Phone: once ) PO 1(620)23 daily daily 2-5581 5 mg 03-09-2016 Completed take 1 Lexapro Edita - tablet 5 mg e [place] 06-07-2016 by tablet 1 Other mouth Tablet(s Phone: once ) PO QPM 1(620)23 daily 2-5581 in the evenin g 5 mg 04-19-2012 Completed take Lexapro Edita - 0.5 10 mg e [place] 06-03-2013 tablet tablet Other by 08/28 Phone: mouth Tablet(s 1620)23 once ) PO 2-5581 daily daily 10 mg 11-13-2011 Completed take 1 Lexapro no name - tablet 10 mg 11-12-2011 by Tab 1 mouth Tablet(s once ) PO daily daily 10 mg 11-13-2011 Completed take 1 Lexapro Tommy - tablet [address] 04-18-2012 by tablet 1 Other mouth Tablet(s Phone: once ) PO 1(620)23 daily daily 2-5581 10 mg 11-13-2011 Completed take 1 Lexapro Tommy - tablet 10 mg Panchito 06-03-2013 by tablet 1 Other mouth Tablet(s Phone: once ) PO 1(620)23 daily daily 2-5581 no Esomeprazol no 12-19-19 Complete no Esomeprazole (no information e Magnesium information 19 d information Ma gnesium phone) (4 (Nexium) 40 (Nexium) 40 sources.) Mg Mg Capsule., Capsule., 1 Cap Oral 1 Cap Oral Daily as needed Discontinued estrogens, Estrogens, Estrogen 05-11-20 Complete no Premarin Tommy conjugated Conjugated 14 - d information 0.625 Cranst (fci) 0.625 (LONG-TERM) 12-20 mg/gram on mg/ml Translation 15 vaginal Other vaginal s: [ cream 08/28 Phone: cream (20 Premarin Gram(s) VAG 1(620) sources.) 0.625 every other 232-55 mg/gram day 81 Vaginal Cream] 05-11-2014 Completed no Premarin Tommy - inform 0.[address] 05-10-2014 ation mg/gram Other vaginal Phone: cream 1(024)23 1/2 2-5581 Gram(s) VAG every other day 05-11-2014 Completed no Premarin Tommy - inform 0.625 [place] 12-06-2014 ation mg/gram Other vaginal Phone: cream 162023 1/2 2-5581 Gram(s) VAG every other day 04-03-2013 Completed no Premarin Tommy - inform 0.625 Panch[place] 10-29-2013 ation mg/gram Other Vaginal Phone: Cream 162023 1/2 2-5581 Gram(s) VAG every other day 04-03-2013 Completed no Premarin Tommy - inform 0.625 Panch[place] 10-29-2013 ation mg/gram Other Vaginal Phone: Cream 162023 1/2 2-5581 Gram(s) VAG every other day 0.625 mg 03-12-2012 Completed no Premarin no name inform 0.625 ation mg/gram Vaginal Cream Gram(s) VAG 03-12-2012 Completed no Premarin no name inform 0.625 ation mg/gram Vaginal Cream Gram(s) VAG fluconazole fluconazole Azole 150 mg 09-12-19 Complete take 1 D iflucan 150 Tommy 150 mg oral Antifungal 18 - d tablet by mg tablet 1 Cranst tablet (09-25-19 mouth once Tablet(s) PO on sources.) 18 daily daily Other Phone: no Hydrocodone no 12-19-19 Complete no Hydrocodone ( no information Bit/Acetami information 19 d information Bi t/Acetamin phone) (4 [employer] sources.) (Hydrocodon (Hydrocodon- -Acetaminop Acetaminophe hen 5-500) n 5-500) 1 1 Each Each Tablet, Tablet, 1-2 1-2 Each Each Oral Oral Every 12 Hours as needed Discontinued no Hydrocodone no 01-01-20 Complete no Hydrocodone G retch information Bit/Acetami information 14 - d information Bi t/Acetamin en L (4 [facility] 12-19[facility]19 Glycosan sources.) (Hydrocodon 19 (Hydrocodone (no e-Apap -Apap 5-325 phone) 5-325 Rebecca) Rebecca) 1 Tab 1 Tab Tablet, 1 Tablet, 1 Tab Oral Tab Oral Every 4HRS as needed for Pain 12/31/13 Discontinued hydrocortis Hydrocortis Corticoster 25 mg 04-25-20 no no Anusol-HC 25 Stepha one acetate one oid 18 informat information mg rectal jordan 25 mg ion suppository Lowe rectal 1 Other suppository Suppository Phone: (20 PRN INSERT 1 1(630) sources.) RECTALLY 232-55 DAILY 81 NEEDED 25 mg 01-04-2017 Completed no Anusol-H Tommy - inform C 25 mg Panchito 04-03-2017 ation rectal Other supposit Phone: ory 1 [phone])23 Supposit 2-5581 ory PRN INSERT 1 RECTALLY DAILY NEEDED 25 mg 04-24-2013 Completed no Anusol-H Edita - inform C 25 mg e [place] 10-10-2014 ation supposit Other ory Phone: INSERT 1 [phone])23 RECTALLY 2-5581 DAILY NEEDED 25 mg 12-04-2011 Completed no Anusol-H Tommy - inform C 25 mg Panchito 04-19-2012 ation Supposit Other ory 1 Phone: Supposit [phone] ory RTL 2-5581 QDAY PRN no L. no Complete no L. (no information Acidophilus information d information Acido philus/ phone) (4 /Bulgaricus Bulgaricus sources.) (Lactinex (Lactinex Chewable Chewable Tablet) 1 Tablet) 1 Each Each Tab.chew Tab.chew 3 Each ORAL As Needed no Lactobacill no 11-21-19 Complete take 1 lactobacillu Tommy information information 12 - d capsule by s Filemon (20 acidophilus 11-27-19 mouth twice acidophilus on sources.) 12 daily Cap 1 Other Capsule(s) Phone: PO BID [phone] 11-21-2011 Completed take 1 lactobac Tommy - capsul illus [place] 11-20-2011 e by acidophi Other mouth jerilyn Cap Phone: twice 1 1(371)23 daily Capsule( 2-5581 s) PO BID 01-03-2017 Completed no Lactobac no name inform illus ation acidophi jerilyn tablet 4 Tablet(s ) PO daily meloxicam meloxicam Nonsteroida 15 mg 04-25-20 Complete take 1 meloxicam 15 Stepha 15 mg oral l 18 - d tablet by mg tablet jordan tablet (20 Anti-inflam 07-06-20 mouth once TAKE ONE Lowe sources.) matory Drug 20 daily TABLET BY Other MOUTH DAILY Phone: 15 mg 11-27-2016 Completed take 1 meloxica Edita - tablet m 15 mg e [place] 06-24-2017 by tablet Other mouth Tablet(s Phone: once ) TAKE 1(941)23 daily ONE 2-5581 TABLET BY MOUTH ONE TIME A DAY 15 mg 06-22-2015 Completed take 1 meloxica Edita - tablet m 15 mg e [place] 06-08-2016 by tablet Other mouth Tablet(s Phone: once ) TAKE 1(741)23 daily ONE 2-5581 TABLET BY MOUTH ONE TIME A DAY 15 mg 04-16-2014 Completed take 1 meloxica Edita - tablet m 15 mg e [place] 05-07-2015 by tablet Other mouth TAKE ONE Phone: once TABLET 1(365)23 daily BY MOUTH 2-5581 ONE TIME A DAY no Multivitami no 12-19-19 Complete no Multivitamin (no information ns information 19 d information s (Mult iple phone) (4 (Multiple Vitamin) 1 sources.) Vitamin) 1 Tab Tablet, Tab Tablet, 1 Tab Oral 1 Tab Oral Daily Discontinued nitrofurant nitrofurant no 100 mg 09-03-19 Complete take 1 M acrobid 100 wen Sr, information 13 - d capsule by mg capsule 1 Cranst macrocrysta macrocrysta 09-09-19 mouth twice Capsule(s) on ls 25 mg / ls / 13 daily PO BID Other nitrofurant nitrofurant Phone: wen carver, 1(262) monohydrate monohydrate 232-24 75 mg oral 81 capsule (20 sources.) olmesartan olmesartan Angiotensin 40 mg 04-17-20 Complete take 1 Benicar 40 Tommy medoxomil 2 Receptor 16 - d tablet by mg tablet Cr anst 40 mg oral Krishan 03-29-20 mouth once TAKE ONE on tablet (20 19 daily TABLET BY Other sources.) MOUTH DAILY Phone: 40 mg 12-13-2015 Completed take 1 Bendafne Beebe - tablet [address] 04-10-2016 by tablet 1 Other mouth Tablet(s Phone: once ) PO 1(227)23 daily daily 281 no [place]-3 no 12-19-19 Complete no [place]-3 (no information Fatty information 19 d information Fatty phone) (4 Acids/Fish Acids/Fish sources.) Oil (Fish Oil (Fish Oil 1,000 Oil 1,000 Mg Mg Softgel) Softgel) 1 1 Each Each Capsule, 1 Capsule, 1 Each Oral Each Oral Daily Discontinued no Potassium no 12-19-19 Complete no Potassium (no information Chloride information 19 d information Chlor margie phone) (4 (Klor-Con) (Klor-Con) sources.) 10 Meq 10 Meq Capcr, 10 Capcr, 10 Meq Oral Meq Oral Daily Discontinued ProctoCream ProctoCream no 2.5 % 10-01-19 no no Pro ctoCream- Stepha -HC 2.5 % -HC 2.5 % information 19 informat information HC 2 .5 % jordan rectal rectal ion rectal cream [place] cream with cream with with Other applicator applicator applicator Phone: (14 APPLY TO 1(605) sources.) AFFECTED 232-22 AREAS 81 DIRECTED RTL 2.5 % 09-30-2018 Completed no ProctoCr Edita inform eam-HC e Lowe ation 2.5 % Other rectal Phone: cream [phone])23 with 2-7320 applicat or APPLY TO AFFECTED AREAS DIRECTED RTL no Rosuvastati no 12-19-19 Complete no Rosuvastatin (no information n Calcium information 19 d information Calc ium phone) (4 (Crestor) (Crestor) 10 sources.) 10 Mg Mg Tablet, 1 Tablet, 1 Each Oral Each Oral Bedtime Discontinued silver silver Sulfonamide 1 % 04-25-20 Complete no Silvad omer 1 Stepha sulfADIAZIN sulfADIAZIN Antibacteri 18 - d information % topical jordan E 10 mg/ml E al 05-09-20 cream 1 Lowe topical 18 Application Other cream (20 TOP BID Phone: sources.) no Telmisartan no 40 mg 12-19-19 Complete take 1 Telmis yeni (no information (Micardis) information 19 d tablet by (Vonda rdis) phone) (4 40 Mg Tab, mouth at 40 Mg Tab, sources.) 80 Mg Oral bedtime 80 Mg Oral Bedtime Discontinued triamcinolo Triamcinolo Corticoster 40 08-09-20 Complete no Kenalog 40 Stepha ne ne oid mg/mL 17 - d information mg/mL ni e acetonide Translation 08-09-20 suspension Lowe 40 mg/ml s: [ 17 for Other injectable triamcinolo injection 1 Phone: suspension ne Milliliter(s 1(620) (20 acetonide ) Inj 232-55 sources.) 40 mg/mL 81 Susp for Injection] 40 mg/mL 01-04-2017 Completed no Kenalog Tommy - inform 40 mg/mL [place] 01-04-2017 ation suspensi Other on for Phone: injectio [phone])23 n 1 2-5581 Millilit er(s) Inj 40 mg/mL 08-23-2016 Completed no Kenalog Dina - inform 40 mg/mL Surya 08-23-2016 ation suspensi Other on for Phone: injectio [phone])23 n 2-5581 Millilit er(s) Inj 40 mg/mL 12-26-2013 Completed no Kenalog Edita - inform 40 mg/mL e [place] 12-26-2013 ation suspensi Other on for Phone: injectio [phone])23 n 2-5581 Millilit er(s) Inj 40 mg/mL 11-12-2013 Completed no Kenalog Edita - inform 40 mg/mL e [place] 11-12-2013 ation suspensi Other on for Phone: injectio [phone])23 n 2-5581 Millilit er(s) Inj 40 mg/mL 11-21-2012 Completed no Kenalog Edita - inform 40 mg/mL e [place] 11-21-2012 ation Susp for Other Injectio Phone: n 1 1(147)23 Millilit 2-5581 er(s) Inj 40 mg/mL 11-21-2012 Completed no Kenalog Edita - inform 40 mg/mL e [place] 11-21-2012 ation Susp for Other Injectio Phone: n 1 [phone])23 Millilit 2-5581 er(s) Inj 40 mg/mL 04-19-2011 Completed no triamcin Edita - inform olone e [place] 04-19-2011 ation acetonid Other e 40 Phone: mg/mL [phone])23 Susp for 281 Injectio n 1 Millilit er(s) Inj UD 40 mg/mL 04-19-2011 Completed no triamcin Edita - inform olone e [place] 04-19-2011 ation acetonid Other e 40 Phone: mg/mL [phone])80 Susp for 281 Injectio n 1 Millilit er(s) Inj UD zolpidem zolpidem gamma-Amino 10 mg 08-30-19 Complete no Am lito 10 mg no tartrate 10 Translation butyric 12 - d information Tab 1 name mg oral s: [ Ambien Acid-ergic 04-19-20 Tablet(s) PO tablet (20 CR 12.5 mg Agonist 12 HS PRN sources.) Tab] 10 mg 05-09-2011 Completed take 1 Ambien no name - tablet 10 mg 06-07-2011 by Tab 1 mouth Tablet(s once ) PO QHS daily at bedtim e 12.5 mg 05-09-2011 Completed no Ambien no name - inform CR 12.5 08-30-2011 ation mg Tab 1 Tablet(s ) PO HS PRN Problems Active Problems Problem Normalized Date Last Normalized Normalized Provider Fa cility Classification Problem(s) Recorded Problem Problem Sta tus Duration Other Aftercare Chronic Active JIMMY NARVAEZ Not Juliet ilable aftercare (1 following MD (07762) source.) joint replacement Other Aftercare Chronic Active JAIME ALMEIDA , Not Juliet ilable aftercare (20 following DO (04511) sources.) joint replacement surgery Cataract (9 Age-related Chronic Active [facility] sources.) MD Marcia riojas cataract, left Hospital - eye [place] Translations: (41869) [ OTHER SECONDARY CATARACT, RIGHT EYE] Other upper Allergic Chronic Active Tommy Flanagan respiratory rhinitis, 14729 , [facility] disease (20 cause (82173) (Work sources.) unspecified Phone: Translations: [ Allergic ) rhinitis due to pollen, Allergic rhinitis due to pollen, ALLERGIC RHINITIS] Deficiency and Anemia, Episodic Active CHAPARRITA [facility] Via other anemia unspecified KAMILLA LOWE (20 sources.) Translations: Hospital - [ ANEMIA] [place] (35767) Other Body mass Chronic Active [facility] Via nutritional; index (BMI) , [facility]; and 40.0-44.9, Hospital - metabolic adult [place] disorders (4 (34373) sources.) Other Body Mass Chronic Active [facility] CEC[facility] Via nutritional; Index [facility]; and 38.0-38.9, Hospital - metabolic adult [place] disorders (3 (76942) sources.) Other Body Mass Chronic Active [facility] JACOB [facility] Via nutritional; Index [facility]; and 39.0-39.9, Hospital - metabolic adult [place] disorders (3 (32487) sources.) Cardiac Bradycardia 12-30-2019 - Chronic Active Tommy Cranst on Tommy Flanagan dysrhythmias Translations: 75103 , LLC (20 sources.) [ Bradycardia, () (Work Bradycardia, Phone: Bradycardia, CARDIAC ) ARRHYTHMIA, UNSPECIFIED, Paroxysmal atrial fibrillation, UNSPECIFIED ATRIAL FIBRILLATION, Atrial fibrillation] Cataract (6 Cataract no information Active TOMMY PANCHITO A scension Via sources.) [address] [place] [address] (63640) Skin and Cellulitis and Episodic Active Tommy [place] [address] EDGARDO STAUFFER tissue leg, except () (Work infections (20 foot Phone: sources.) Translations: [ CELLULITIS ) OF LEG, CELLULITIS OF LEG, Cellulitis of right lower limb, Cellulitis of right lower limb] Chronic Chronic airway Chronic Active [facility]GAN [facility] Via obstructive obstruction, , [facility] pulmonary not elsewhere Hospital - disease and classified [place] bronchiectasis Translations: (39795) (11 sources.) [ CHRONIC OBSTRUCTIVE PULMONARY DISEASE, U] Other lower Cough Episodic Active DINA BRO [facility] Vi a respiratory HOT DIP GALVANIZER [facility] disease (6 Hospital - sources.) [place] (36232) Mood disorders Depressive Chronic Active Tommy Panchito H baldomero Flanagan (20 sources.) disorder, not [address] MD LLC elsewhere (48815) (Work classified Phone: Translations: [ DEPRESSIVE ) DISORDER NEC, Depression, Major depressive disorder, recurrent, moderate, Major depressive disorder, recurrent, moderate, Major depressive disorder, recurrent, moderate] Abdominal Diaphragmatic Episodic Active JEEVAN LUNSFORD , [facility] Via hernia (3 hernia without MD [facility] sources.) mention of Hospital - obstruction or [place] gangrene (86239) Other injuries Elbow, Episodic Active [facility] Via and conditions forearm, and GAGE SOTO due to wrist injury Hospital - external [place] causes (3 (72767) sources.) Genitourinary Frequency of Episodic Active JASON SUMANTH , [facility] Via symptoms and micturition MD [facility] ill-defined Translations: Hospital - conditions (20 [ Dysuria, [place] sources.) DYSURIA, (43242) Personal history UTI, Urinary frequency, Urinary frequency, Urinary frequency, Personal history UTI, Urinary frequency] Anxiety Generalized Chronic Active Tommy Flanagan disorders (20 anxiety 23694 , Dajie sources.) disorder (53179) (Work Translations: Phone: [ Generalized anxiety ) disorder, GENERALIZED ANXIETY DISEASE, ANXIETY STATE, Anxiety, Generalized anxiety disorder, Anxiety, Generalized anxiety disorder] Thyroid Hypothyroidism Chronic Active Tommy Flanagan Ho vidal Flanagan disorders (20 , unspecified 66598 , Dajie sources.) Translations: (09151) (Work [ Phone: Hypothyroidism , unspecified, ) Atrophy of thyroid (acquired), Atrophy of thyroid (acquired), Hypothryroidis m, HYPOTHYROIDISM , Hypothyroidism , unspecified, Hypothyroidism , unspecified, HYPOTHYROIDISM , Hypothyroidism , unspecified, HYPOTHYROIDISM , UNSPECIFIED, Hypothyroidism , unspecified] Other lower Hypoxemia Episodic Active [facility] V ia respiratory Translations: , MD [facility] disease (20 [ Nocturnal Hospital - sources.) hypoxia, [place] 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, 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] Other Knee joint Chronic Active [facility] Vi a connective replacement MD [facility] tissue disease [facility] - (7 sources.) [place] (46109) Other senior care Episodic Active JASON SUMANTH , [facility] Via aftercare (14 (current) use MD Kennedy sources.) of aspirin [facility] (17185) Other Long-term Episodic Active [facility] Via aftercare (20 (current) use MD [facility] sources.) of other Hospital - medications [place] Translations: (55329) [ ENCNTR LONG-RX USE NEC] Spondylosis; Lumbago Episodic Active Tommy [place] intervertebral Translations: 29714 EDGARDO STAUFFER disc [ LUMBAGO, (15455) (Work disorders; LUMBAGO, Phone: other back DORSALGIA, problems (20 UNSPECIFIED, ) sources.) Low back pain, Low back pain, Low back pain, Spinal instabilities, sacral and sacrococcygeal region, Spinal instabilities, sacral and sacrococcygeal region, Spinal instabilities, sacral and sacrococcygeal region, Low back pain] Spondylosis; Lumbosacral Chronic Active [facility] Via intervertebral spondylosis MD [facility] disc without Hospital - disorders; myelopathy [place] other back (09279) problems (12 sources.) Other diseases Lymphedema, Chronic Active [facility] Via of veins and not elsewhere , MD [facility] lymphatics (4 classified Hospital - sources.) [place] () Disorders of Mixed Chronic Active Tommy Flanagan Tommyvidal Flanagan lipid hyperlipidemia 91517 EDGARDO STAUFFER metabolism (20 Translations: (56032) (Work sources.) [ Mixed Phone: hyperlipidemia , ) HYPERLIPIDEMIA , HYPERLIPIDEMIA , Mixed hyperlipidemia , Mixed hyperlipidemia , Hyperlipidemia , Mixed hyperlipidemia , Mixed hyperlipidemia , PURE HYPERCHOLESTER [place]LE[place], UNSPECIFIED] Other Myalgia and Episodic Active [facility] V ia connective myositis, MD [facility] tissue disease unspecified Hospital - (12 sources.) Translations: [place] [ KNEE JOINT () REPLACEMENT STATUS] Heart valve Nonrheumatic 12-30-2019 - Chronic Active [facility] E [facility] Via disorders (1 mitral (valve) KAMILLA LOWE source.) insufficiency Hospital - [place] (53162) Other Obesity, Chronic Active [facility] Via nutritional; unspecified MD [facility] endocrine; and Translations: Hospital - metabolic [ BODY MASS [place] disorders (8 INDEX (15279) sources.) 39.0-39.9, ADULT, BODY MASS INDEX 38.0-38.9, ADULT] Other Obesity, Chronic Active [facility] Via nutritional; unspecified , MD [facility] endocrine; and Hospital - metabolic [place] disorders (4 (66849) sources.) Osteoarthritis Osteoarthrosis Chronic Active Tommy Colberto n Tommy Flanagan (20 sources.) , unspecified 91041 , [facility] whether (67977) (Work generalized or Phone: localized, lower leg ) Translations: [ Bilateral primary osteoarthritis of knee, Bilateral primary osteoarthritis of knee, Osteoarthritis , OA (osteoarthriti s) of knee, Osteoarthritis ] NEGATED Osteoporosis, Chronic Active no name [facility] Via no unspecified Marcia information (2 Hospital - sources.) [place] (09918) Other Other long Episodic Active [facility] Via aftercare (9 term (current) , MD [facility] sources.) drug therapy Hospital - [place] (55514) Other Other Episodic Active [facility] Via screening for screening , MD [facility] suspected mammogram Hospital - conditions Translations: [place] (not mental [ ENCNTR (75114) disorders or SCREEN infectious MAMMOGRAM FOR disease) (20 MALIGNANT NE, sources.) Encounter for screening mammogram for malignant neoplasm of breast, Encounter for screening mammogram for malignant neoplasm of breast] Other Pain in joint, Episodic Active [facility] Via non-traumatic lower leg MD [facility] joint Translations: Hospital - disorders (20 [ Pain in left [place] sources.) knee, JOINT (99992) PAIN-L/LEG, Pain in right knee, Pain in right knee, Pain in left knee] Other Pain in left Episodic Active TOMMYVidal FLANAGAN Not Available non-traumatic MD katie (01712) joint disorders (13 sources.) Other Pain in left Episodic Active [facility]GAN [facility] Via connective MD Marcia rees tissue disease Hospital - (13 sources.) [place] (84239) NEGATED Pain in left no information Active no name [facility] Via no leg Marcia information (3 Translations: Hospital - sources.) [ PAIN IN [place] RIGHT LEG, (69807) PRESENCE OF LEFT ARTIFICIAL KNEE JOINT] Other Pain in leg, Episodic Active [facility] Via connective unspecified MD [facility] tissue disease [facility] - (20 sources.) [place] (61850) Other Pain in right Episodic Active TOMMY FLANAGAN Not Available non-traumatic MD katie (60495) joint disorders (13 sources.) Other Pain in right Episodic Active [facility]LA[facility] Via connective MD Marcia rees tissue disease Hospital - (13 sources.) [place] (87515) Screening and Personal Episodic Active [facility] V ia history of history of , MD [facility] mental health nicotine Hospital - and substance dependence [place] abuse codes (5 (44672) sources.) Other Personal Episodic Active JASON SUMANTH , [facility] Via non-epithelial history of MD [facility] cancer of skin other Hospital - (5 sources.) malignant [place] neoplasm of (55053) skin Medical Pre-operative Episodic Active JEEVAN LUNSFORD , [facility] Via examination/ev examination, MD [facility] aluation (5 unspecified Hospital - sources.) Translations: [place] [ ENCOUNTER (40982) FOR OTHER PREPROCEDURAL EXAMIN] Other Presence of Chronic Active JASON SUMANTH , [facility] V ia connective left MD [facility] tissue disease [facility] Hospital - (22 sources.) knee joint [place] () Esophageal Reflux Chronic Active JEEVAN SHRESTHAO , [facility] Via disorders (20 esophagitis MD [facility] sources.) Translations: Hospital - [ ESOPHAGEAL [place] REFLUX, (52365) Gastro-esophag eal reflux 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, Gastro-esophag eal reflux 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, ESOPHAGEAL REFLUX, ESOPHAGEAL REFLUX] Abdominal pain Right upper Episodic Active no name Tommy Flanagan (1 source.) quadrant pain MD REYNOSO (86966) Residual Sleep apnea Chronic Active Tommy Flanagan codes; Translations: 77324 EDGARDO STAUFFER unclassified [ Sleep apnea, (42032) (Work (20 sources.) Sleep apnea, Phone: Idiopathic sleep related ) nonobstructive alveolar hypoventilatio n, 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, 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, sleep apnea, 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] Residual Sleep apnea, Chronic Active JASON SUMANTH , [facility] Via codes; unspecified MD [facility] unclassified Hospital - (1 source.) [place] (21869) Sprains and Sprain of Episodic Active [facility] Via strains (3 wrist, GAGE SOTO sources.) unspecified Hospital - site [place] (23725) Asthma (20 Unspecified Chronic Active JASON SUMANTH , [facility] Via sources.) asthma, [facility] uncomplicated Hospital - Translations: [place] [ EXTRINSIC (87946) ASTHMA, Asthma, EXTRINSIC ASTHMA, Asthma, Asthma] Essential Unspecified 12-31-2019 - Chronic Active TOMMY RICHARD [facility] Via hypertension essential , MD [facility] (20 sources.) hypertension Hospital - Translations: [place] [ Essential (23001) (primary) hypertension, ESSENTIAL HYPERTENSION, Hypertension, ESSENTIAL HYPERTENSION, Essential (primary) hypertension, Essential (primary) hypertension, ESSENTIAL HYPERTENSION, Essential (primary) hypertension, ESSENTIAL (PRIMARY) HYPERTENSION, Essential (primary) hypertension] Gastritis and Unspecified Episodic Active [facility] Via duodenitis (3 gastritis and MD [facility] sources.) gastroduodenit [facility] - is, without [place] mention of (55011) hemorrhage Other nervous Unsteadiness Episodic Active TOMMY SETPHENSSTON [facility] Via system on feet , MD [facility] disorders (22 Hospital - sources.) [place] (14311) Genitourinary Urge Chronic Active Tommy Flanagan Demi vidal Panchito symptoms and incontinence 84875 EDGARDO STAUFFER ill-defined Translations: (46613) (Work conditions (20 [ Urge Phone: sources.) incontinence, Urge ) incontinence] Malaise and Weakness Episodic Active TOMMY FLANAGAN [facility] Vi a fatigue (22 , MD [facility] sources.) [facility] - [place] (02364) Past or Other Problems Problem Normalized Date Last Normalized Normalized Provider Fa cilicornelius Classification Problem(s) Recorded Problem Problem Sta tus Duration Other upper Acute Episodic Completed Tommy Panchito Tmomy Panchito respiratory maxillary 52515 EDGARDO STAUFFER infections (20 sinusitis (06787) (Work sources.) Translations: Phone: [ Acute maxillary ) sinusitis, unspecified, Acute maxillary sinusitis, unspecified, ACUTE URI, Acute upper respiratory infection, unspecified, ACUTE SINUSITIS, Acute recurrent maxillary sinusitis, ACUTE SINUSITIS, Other acute sinusitis, ACUTE SINUSITIS, Acute recurrent maxillary sinusitis, Acute maxillary sinusitis, Acute upper respiratory infection, unspecified, Acute upper respiratory infection, unspecified, Other acute sinusitis, Other acute sinusitis, Acute maxillary sinusitis] Unclassified Asymptomatic Episodic Completed Tommy Flanagan H baldomero Flanagan (16 sources.) postmenopausal 93886 EDGARDO STAUFFER status (09325) (Work (age-related) Phone: (natural) Translations: ) [ EDEMA, Localized edema, Localized edema, EDEMA, Localized edema] Unclassified Atrophy of no information no information Tommy Flanagan (20 sources.) thyroid 78437 EDGARDO STAUFFER (acquired) (42374) (Work Translations: Phone: [ Atrophy of thyroid ) (acquired), Atrophy of thyroid (acquired)] Unclassified Burn of first no information no information Tommy Flanagan (12 [place] [address] EDGARDO STAUFFER abdominal (81697) (Work wall, initial Phone: encounter Translations: ) [ Burn of first degree of abdominal wall, initial encounter] Unclassified Burn of first no information no information Tommy Flanagan (12 [place] [address] EDGARDO STAUFFER abdominal (05808) (Work wall, Phone: subsequent encounter ) Translations: [ Burn of first degree of abdominal wall, subsequent encounter] Other Care involving Episodic Completed JIMMY NARVAEZ No t Available aftercare (1 other physical , (89330) source.) therapy Unclassified Cellulitis of no information no information Tommy Flanagan (2 sources.) right lower 43905 EDGARDO STAUFFER limb (81825) (Work Translations: Phone: [ Cellulitis of right lower ) limb] Unclassified Contusion of no information no information Tommy Flanagan (2 sources.) right lower 87900 EDGARDO STAUFFER leg, initial (02657) (Work encounter Phone: Translations: [ Contusion of ) right lower leg, initial encounter] Other lower Cough Episodic Completed Tommy Flanagan respiratory Translations: 22188 EDGARDO STAUFFER disease (20 [ Cough, (32340) (Work sources.) Cough] Phone: ) Other lower Cough Episodic Completed Tommy Flanagan respiratory Translations: 00641 EDGARDO STAUFFER disease (20 [ COUGH, (69253) (Work sources.) Cough] Phone: ) Unclassified DEPRESSIVE no information no information Tommy Flanagan (6 sources.) DISORDER NEC 97292EDGARDO Joyce MD Translations: (14344) (Work [ DEPRESSIVE Phone: DISORDER NEC] ) Residual Edema Episodic Completed Tommy manzano codes; Translations: 68236 EDGARDO STAUFFER unclassified [ Localized () (Work (20 sources.) edema, Phone: Localized edema, EDEMA] ) Residual Edema Episodic Completed Tommy manzano codes; Translations: 37784 EDGARDO STAUFFER unclassified [ EDEMA] () (Work (20 sources.) Phone: ) [place] (20 Erythema Episodic Completed Tommy manzano sources.) [first degree] 95060 EDGARDO STAUFFER of abdominal () (Work wall Phone: Translations: [ Burn of ) first degree of abdominal wall, subsequent encounter, Burn of first degree of abdominal wall, subsequent encounter, Burn of first degree of abdominal wall, initial encounter, Burn of first degree of abdominal wall, initial encounter] Esophageal Esophageal no information no information Tommy Flanagan disorders (10 disorders 46653 EDGARDO STAUFFER sources.) Translations: (34005) (Work [ Phone: Gastro-esophag eal reflux ) 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] External cause Fall from no information no information [facility] Via codes: GAGE Leung Overexertion slipping, Hospital - (3 sources.) tripping, or [place] stumbling (04077) External cause Home accidents no information no information [facility] Via codes: Place GAGE SOTO of occurrence Hospital - (3 sources.) [place] (02649) Other ear and Impacted Episodic Completed Tommy Hu sense organ cerumen 47339EDGARDO Barrera MD disorders (20 Translations: (76809) (Work sources.) [ Impacted Phone: cerumen, bilateral, ) Impacted cerumen, bilateral] Unclassified Impacted no information no information Tommy Flanagan (12 sources.) cerumen, 76837EDGARDO Barrera MD bilateral () (Work Translations: Phone: [ Impacted cerumen, ) bilateral] Hemorrhoids Internal Episodic Completed JEEVAN LUNSFORD , [facility] Vi a (20 sources.) hemorrhoids MD [facility] without Hospital - mention of [place] complication (86459) Translations: [ EXT HEMORRHOID W/O COMPL, Internal and external hemorrhoids without complication] Immunizations Need for Episodic Completed Tommy Hu and screening prophylactic EDGARDO STAUFFER for infectious vaccination (40201) (Work disease (20 and Phone: sources.) inoculation against ) influenza Translations: [ VACCIN FOR INFLUENZA, VACCIN FOR INFLUENZA] External cause Other external no information no information [facility] Via codes: cause status GAGE SOTO Unspecified (3 Hospital - sources.) [place] (69734) Unclassified Pain in left no information no information Tommy Flanagan (20 sources.) knee , LLC Translations: (17692) (Work [ Pain in left Phone: knee] ) Disorders of Pure no information no information [facility] Via lipid hypercholesMD Marcia negro metabolism (6 olemia, Hospital - sources.) unspecified [place] (56396) Residual Sleep apnea, no information no information [facility] Via codes; unspecified Marcia unclassified Hospital - (4 sources.) [place] (38462) Procedures Procedure Normalized Procedure Procedure Result Performer Facility Date 03-11-2019 Arthrocentesis no information no name Tommy manzano MD, [facility] - aspir&/inj major (83192) (Work Phone : 03-11-2019 jt/bursa w/o us ) 12-20-2018 Cataract extraction no information [facility] Via [place] and insertion of Hospital (67880) intraocular lens 12-20-2018 Cataract removal no information [facility] cension Via [place] insertion of lens [facility] (37968) 08-09-2017 Ceftriaxone sodium no information no name Demi Flanagan MD, [facility] - injection (73314) (Work Phone : 08-09-2017 ) 04-12-2017 Depression screen no information no name EDGARDO Tello MD - annual (75183) (Work Phone : 04-12-2017 ) 04-12-2017 Fall risk assessment no information no name EDGARDO Marie MD - docd (15266) (Work Phone : 04-12-2017 ) 03-11-2019 Triamcinolone acet inj no information no name EDGARDO Tello MD - NOS (43212) (Work Phone : 03-11-2019 ) 08-09-2017 Triamcinolone acet inj no information no name EDGARDO Tello MD - NOS (49712) (Work Phone : 08-09-2017 ) 12-27-2018 YAG laser capsulotomy no information [facility] Via [facility] (62933) Immunizations Normalized Immunization Date Notes Care Provider Facili ty Immunization influenza, seasonal, 05-22-2018 no information Tommy Flanagan 66487 Tommy Flanagan MD, injectable LLC (35803) (Work Phone: ) zoster vaccine, live 07-02-2018 no information Tommy Flanagan 70917 Tommy Flanagan [facility] (60440) (Work Phone: ) Results Test Name Value Interpretation Reference Range Date Time Fa cility (Normalized) (Normalized) (Medline Reference) urinalysis on null Ketones Ql (U) neg NEG (N) EDGARDO Tello MD (29342) (Work Phone: ) Nitrite Test positive (N) Tommy Flanagan strip Ql (U) positive EDGARDO STAUFFER (78408) (Work Phone: ) Nitrite Test NEG NEG (N) Tommy Flanagan strip Ql (U) EDGARDO STAUFFER (78729) (Work Phone: ) Specific gravity 1.015 (no code) Tommy Grayson n (U) [Rel EDGARDO STAUFFER (72665) density] (Work Phone: ) Specific gravity 1.010 (no code) Tommy Grayson n (U) [EDGARDO Crowell MD (88802) density] (Work Phone: ) Urobilinogen neg neg (N) Tommy Flanagan Test strip Qn MD [facility] (92906) (U) (Work Phone: ) ua on null Bilirubin neg neg (N) Tommy Flanagan MD [facility] (45039) (Work Phone: ) Bilirubin N (N) Tommy Flanagan MD [facility] (93597) (Work Phone: ) Bilirubin Ql (U) neg neg (N) Tommy jim MD [facility] (36069) (Work Phone: ) Bilirubin Ql (U) N N (N) Tommy jim MD [facility] (18148) (Work Phone: ) Blood neg neg (N) Tommy Flanagan MD [facility] (79624) (Work Phone: ) Blood N (N) Tommy Flanagan MD [facility] (25446) (Work Phone: ) GLUCOSE neg neg (N) Tommy Flanagan MD [facility] (71318) (Work Phone: ) GLUCOSE N (N) Tommy lFanagan MD [facility] (32037) (Work Phone: ) Glucose Ql (U) neg neg (N) Tommy Flanagan MD [facility] (65466) (Work Phone: ) Glucose Ql (U) N N (N) Tommy Flanagan MD [facility] (99578) (Work Phone: ) Hemoglobin Ql neg neg (N) Tommy Flanagan MD (U) [facility] (22998) (Work Phone: ) Hemoglobin Ql N N (N) Tommy Springer) MD [facility] (87882) (Work Phone: ) Ketones neg neg (N) Tommy Flanagan MD [facility] (72425) (Work Phone: ) Ketones N (N) Tomym Flanagan [facility] (46420) (Work Phone: ) Leukocytes neg neg (N) Tommy Flanagan [facility] (00618) (Work Phone: ) Leukocytes SMALL SMALL (N) Tommy Flanagan [facility] (72835) (Work Phone: ) Nitrite POSITIVE (N) Tommy Flanagan POSITIVE , [facility] (38406) (Work Phone: ) Nitrite neg neg (N) Tommy Flanagan [facility] (26188) (Work Phone: ) PH 5 (no code) Tommy Flanagan [facility] (80333) (Work Phone: ) PH 1.020 (no code) Tommy Flanagan [facility] (40181) (Work Phone: ) pH (U) 5 [pH] (no code) 4.6 - 8 [pH] Tommy vázquez MD, [facility] (17820) (Work Phone: ) pH (U) 1.020 [pH] (no code) 4.6 - 8 [pH] Tommy vázquez [facility] (28222) (Work Phone: ) Protein neg neg (N) Tommy Flanagan [facility] (91493) (Work Phone: ) Protein N (N) Tommy Flanagan [facility] (58224) (Work Phone: ) Protein Ql (U) neg neg (N) Tommy Flanagan [facility] (04400) (Work Phone: ) Protein Ql (U) N N (N) Tommy Flanagan [facility] (92707) (Work Phone: ) Specific [place] 1.015 (no code) Tommy jim MD LLC (93243) (Work Phone: ) Specific [place] 6 (no code) Tommy jim MD [facility] (75634) (Work Phone: ) Urobilinogen neg neg (N) Tommy Flanagan [facility] (47641) (Work Phone: ) Urobilinogen N (N) Tommy Flanagan [facility] (62134) (Work Phone: ) other on null Blood 1+ 1+ (N) Tommy Flanagan [facility] (84779) (Work Phone: ) Nitrite Ql (U) NEG neg (N) Tommy Flanagan [facility] (04817) (Work Phone: ) Urobilinogen Qn NEG NEG (N) Tommy Flanagan ([place]) MD LLC (52006) (Work Phone: ) no information no information (no code) Via [facility] (39899) metabolic panel on null Bilirubin neg NEG (N) Tommy Flanagan [Mass/Vol] MD LLC (25275) (Work Phone: ) Glucose NEG NEG (N) Tommy Flanagan [facility] ([id number]) (Work Phone: ) Protein neg neg (N) Tommy Flanagan [facility] ([id number]) (Work Phone: ) hematology on null pH (Bld) 5 [pH] (no code) 7.38 - 7.42 [pH] [facility]zano [facility] ([id number]) (Work Phone: ) WBC Auto #/vol neg neg (N) Tommy Flanagan [facility] ([id number]) (Work Phone: ) WBC Auto #/vol ++ ++ (N) Tommy Flanagan [facility] ([id number]) (Work Phone: ) WBC Auto #/vol 1+ 1+ (N) Tommy Flanagan [facility] ([id number]) (Work Phone: ) tsh on 2018-05-29 Thyrotropin Qn 2.05 uIU/mL (N) 05-29-2018 Tommy Orantes ton 13:00-0400 EDGARDO STAUFFER ([id number]) (Work Phone: ) lipid on 2018-05-29 C/HDL 2.8 Ratio (N) 05-29-2018 Tommy Flanagan 02:00-0400 EDGARDO STAUFFER ([id number]) (Work Phone: ) Cholesterol in 68.0 mg/dL (N) 05-29-2018 Tommy Orantes ton HDL mass conc 13:00-0400 [facility] ([id number]) (Work Phone: ) Cholesterol in 2.8 Ratio (N) 05-29-2018 Tommy Orantes ton HDL mass conc 13:00-0400 [facility] ([id number]) (Work Phone: ) Cholesterol in 95 mg/dL (N) 0 - 100 mg/dL 05-29-2018 Macho chantal [place] LDL [Mass/Vol] 02:00-0400 EDGARDO STAUFFER ([id number]) (Work Phone: ) Cholesterol in 95 mg/dL (N) 05-29-2018 Tommy richard LDL mass conc 13:00-0400 EDGARDO STAUFFER ([id number]) (Work Phone: ) Cholesterol mass 191 mg/dL (N) 180 - 200 mg/dL 05-29-2018 Tommy [place] conc 13:00-0400 EDGARDO STAUFFER ([id number]) (Work Phone: ) Triglyceride 138 mg/dL (N) 0 - 150 mg/dL 05-29-2018 Tommy Flanagan mass conc 13:00-0400 EDGARDO STAUFFER ([id number]) (Work Phone: ) free t4 on 2018-05-29 T4 free mass 0.93 ng/dL (N) 0.9 - 2.2 ng/dL 05-29-2018 Beck mira [place] conc 13:00-0400 EDGARDO STAUFFER ([id number]) (Work Phone: ) comp metabolic on 2018-05-29 Albumin mass 4.0 g/dL (N) 3.4 - 5.4 g/dL 05-29-2018 Demi Flanagan conc 13:00-0400 EDGARDO STAUFFER ([id number]) (Work Phone: ) Albumin/Globulin 1.6 {ratio} (N) 1 - 2.5 {ratio} 8 Tommy Flanagan mass ratio 13:00-0400 EDGARDO STAUFFER ([id number]) (Work Phone: ) ALK PHOS 52 U/L (N) 05-29-2018 Tommy Flanagan 13:00-0400 EDGARDO STAUFFER ([id number]) (Work Phone: ) ALT enzyme 12 U/L (N) 4 - 40 U/L 05-29-2018 Tommy wolff act/vol 13:000400 EDGARDO STAUFFER ([id number]) (Work Phone: ) Anion gap 3 14 mmol/L (N) 3 - 11 mmol/L 05-29-2018 Tommy Flanagan molar conc 13:000400 EDGARDO STAUFFER ([id number]) (Work Phone: ) Anion gap 14 mmol/L (N) 3 - 11 mmol/L 05-29-2018 Tommy manzano [Moles/Vol] 02:00-0400 EDGARDO STAUFFER ([id number]) (Work Phone: ) AST enzyme 16 U/L (N) 10 - 34 U/L 05-29-2018 Tommy mcclure act/vol 13:000400 EDGARDO STAUFFER ([id number]) (Work Phone: ) B/C Ratio 23.4 Ratio (N) 05-29-2018 Tommy Flanagan 13:00-0400 EDGARDO STAUFFER ([id number]) (Work Phone: ) BILI T 1.1 mg/dL (N) 05-29-2018 Tommy Flanagan 02:00-0400 EDGARDO STAUFFER ([id number]) (Work Phone: ) Bilirubin mass 1.1 mg/dL (N) 0.1 - 1.2 mg/dL 05-29-2018 H baldomero Flanagan conc 13:00-0400 EDGARDO STAUFFER ([id number]) (Work Phone: ) Calcium mass 9.4 mg/dL (N) 8.5 - 10.2 mg/dL 05-29-2018 Ho mira Panchito conc 13:00-0400 EDGARDO STAUFFER ([id number]) (Work Phone: ) Chloride molar 99 mmol/L (N) 95 - 106 mmol/L 05-29-2018 H baldomero Flanagan conc 13:00-0400 EDGARDO STAUFFER ([id number]) (Work Phone: ) CO2 molar conc 30.0 mmol/L (N) 23 - 29 mmol/L 05-29-2018 Tommy Flanagan 13:00-0400 EDGARDO STAUFFER ([id number]) (Work Phone: ) Creatinine mass 0.6 mg/dL (N) 05-29-2018 Tommy wolff conc 13:00-0400 EDGARDO STAUFFER ([id number]) (Work Phone: ) GFR/1.73 sq M 95 ml/min/1.73m2 (N) 05-29-2018 Tommy espino predicted among 13:00-0400 EDGARDO STAUFFER ([id number]) non-blacks MDRD (Work Phone: vol rate/area ) (S/P/Bld) Globulin (S) 2.5 g/dL (N) 2 - 3.5 g/dL 05-29-2018 Tommy Flanagan [Mass/Vol] 02:00-0400 EDGARDO STAUFFER ([id number]) (Work Phone: ) Globulin 2.5 g/dL (N) 2 - 3.5 g/dL 05-29-2018 Tommy mcclure Calculated mass 13:00-0400 EDGARDO STAUFFER ([id number]) conc (S) (Work Phone: ) Glucose mass 107 mg/dL (N) 60 - 125 mg/dL 05-29-2018 Demi Flanagan conc 13:00-0400 EDGARDO STAUFFER ([id number]) (Work Phone: ) Osmolality 279 mOsmo (N) 05-29-2018 Tommy Flanagan 13:00-0400 EDGARDO STAUFFER ([id number]) (Work Phone: ) Potassium molar 4.1 mmol/L (N) 3.7 - 5.2 mmol/L 05-29-2018 Tommy Flanagan conc 13:00-0400 EDGARDO STAUFFER ([id number]) (Work Phone: ) Protein mass 6.5 g/dL (N) 6.4 - 8.3 g/dL 05-29-2018 Demi vidal Panch[place] conc 13:00-0400 EDGARDO STAUFFER ([id number]) (Work Phone: ) Sodium molar 139 mmol/L (N) 135 - 145 mmol/L 05-29-2018 H baldomero Panchito conc 13:00-0400 EDGARDO STAUFFER ([id number]) (Work Phone: ) TPRO 6.5 g/dL (N) 05-29-2018 Tommy Flanagan 02:00-0400 EDGARDO STAUFFER ([id number]) (Work Phone: ) Urea nitrogen 15 mg/dL (N) 7 - 20 mg/dL 05-29-2018 Tommy Flanagan mass conc 13:00-0400 EDGARDO STAUFFER ([id number]) (Work Phone: ) cbc with differential on 2018-05-29 Baso ABS# 0.0 K/ul (N) 05-29-2018 Tommy Flanagan 13:00-0400 EDGARDO STAUFFER ([id number]) (Work Phone: ) Basophils/100 0.5 % (N) 0.5 - 1 % 05-29-2018 Tommy manzano WBC (Bld) 02:00-0400 EDGARDO STAUFFER ([id number]) (Work Phone: ) Basophils/100 0.5 % (N) 0.5 - 1 % 05-29-2018 Tommy manzano WBC Auto (Bld) 13:00-0400 EDGARDO STAUFFER ([id number]) (Work Phone: ) Eos ABS# 0.2 K/ul (N) 05-29-2018 Tommy Flanagan 13:00-0400 EDGARDO STAUFFER ([id number]) (Work Phone: ) Eosinophils/100 2.6 % (N) 1 - 4 % 05-29-2018 Tommy Flanagan WBC Auto (Bld) 13:00 EDGARDO STAUFFER ([id number]) (Work Phone: ) Erythrocyte 14.9 % (N) 11.6 - 14.6 % 05-29-2018 Tommy Flanagan distribution 02:00 EDGARDO STAUFFER ([id number]) width (RBC) (Work Phone: [Ratio] ) Erythrocyte 14.9 % (N) 11.6 - 14.6 % 05-29-2018 Tommy Flanagan distribution 13:00 EDGARDO STAUFFER ([id number]) width Auto Ratio (Work Phone: (RBC) ) Hematocrit (Bld) 40.7 % (N) 36.1 - 50.3 % 05-29-2018 Dominique Flanagan [Volume 02:00 EDGARDO STAUFFER ([id number]) fraction] (Work Phone: ) Hematocrit Auto 40.7 % (N) 36.1 - 50.3 % 05-29-2018 Beck Flanagan Volume Fraction 13:00 EDGARDO STAUFFER ([id number]) (Bld) (Work Phone: ) Hemoglobin mass 12.7 g/dL (N) 12.1 - 17.2 g/dL 05-29-2018 Tommy Flanagan conc (Bld) 13:00 EDGARDO STAUFFER ([id number]) (Work Phone: ) Lymphocytes 2.05 10*3/uL (N) 0.9 - 2.9 05-29-2018 Tommy espino (Bld) [#/Vol] 10*3/uL 02:00 EDGARDO STAUFFER ([id number] ) (Work Phone: ) Lymphocytes Auto 2.05 10*3/uL (N) 0.9 - 2.9 05-29-2018 Beck Flanagan #/vol (Bld) 10*3/uL 13:00-399 EDGARDO STAUFFER ([id number]) (Work Phone: ) Lymphocytes/100 24.9 % (N) 20 - 40 % 05-29-2018 Tommy Flanagan WBC (Bld) 02:00-0400 EDGARDO STAUFFER ([id number]) (Work Phone: ) Lymphocytes/100 24.9 % (N) 20 - 40 % 05-29-2018 Tommy Flanagan WBC Auto (Bld) 13:00-0400 EDGARDO STAUFFER ([id number]) (Work Phone: ) MCH (RBC) 28.9 pg (N) 27 - 31 pg 05-29-2018 Tommy Orantes ton [Entitic mass] 02:00-0 EDGARDO STAUFFER ([id number]) (Work Phone: ) MCH Auto Entitic 28.9 pg (N) 27 - 31 pg 05-29-2018 Demi Flanagan mass (RBC) 13:00-0 EDGARDO STAUFFER ([id number]) (Work Phone: ) MCHC 31.2 pg (N) 05-29-2018 Tommy Flanagan 02:00-0400 EDGARDO STAUFFER ([id number]) (Work Phone: ) MCHC (RBC) 31.2 pg (N) 05-29-2018 Tommy Flanagan [Mass/Vol] 02:00-0400 EDGARDO STAUFFER ([id number]) (Work Phone: ) MCHC Auto mass 31.2 pg (N) 05-29-2018 Tommy Orantes ton conc (RBC) 13:00-0400 EDGARDO STAUFFER ([id number]) (Work Phone: ) MCV (RBC) 92.5 fL (N) 80 - 100 fL 05-29-2018 Tommy pauln [Entitic vol] 02:00-0 EDGARDO STAUFFER ([id number]) (Work Phone: ) MCV Auto Entitic 92.5 fL (N) 80 - 100 fL 05-29-2018 Macho Flanagan volume (RBC) 13:00-0 EDGARDO STAUFFER ([id number]) (Work Phone: ) Routt ABS# 0.7 K/ul (N) 05-29-2018 Tommy Flanagan 13:00-0400 EDGARDO STAUFFER ([id number]) (Work Phone: ) Monocytes/100 9.0 % (N) 2 - 8 % 05-29-2018 Tommy manzano WBC Auto (Bld) 13:00-0400 EDGARDO STAUFFER ([id number]) (Work Phone: ) Neut ABS# 5.18 K/ul (N) 05-29-2018 Tommy Flanagan 13:00-0400 [facility] ([id number]) (Work Phone: ) Neutrophils/100 63.0 % (N) 40 - 60 % 05-29-2018 Tommy Flanagan WBC (Bld) 02:00-0400 EDGARDO STAUFFER ([id number]) (Work Phone: ) Neutrophils/100 63.0 % (N) 40 - 60 % 05-29-2018 Tommy Flanagan WBC Auto (Bld) 13:00-0400 EDGARDO STAUFFER ([id number]) (Work Phone: ) Platelets (Bld) 329 10*3/uL (N) 150 - 450 05-29-2018 Demi Flanagan [#/Vol] 10*3/uL 02:00-0400 EDGARDO STAUFFER ([id number]) (Work Phone: ) Platelets Auto 329 10*3/uL (N) 150 - 450 05-29-2018 Tommy Flanagan #/vol (Bld) 10*3/uL 13:00-0400 EDGARDO STAUFFER ([id number]) (Work Phone: ) RBC (Bld) 4.40 10*6/uL (N) 4.2 - 6.1 05-29-2018 Tommy mcclure [#/Vol] 10*6/uL 02:00-0400 EDGARDO STAUFFER ([id number]) (Work Phone: ) RBC Auto #/vol 4.40 10*6/uL (N) 4.2 - 6.1 05-29-2018 Demi Flanagan (Bld) 10*6/uL 13:00-0400 EDGARDO STAUFFER ([id number]) (Work Phone: ) WBC (Bld) 8.22 10*3/uL (N) 3.5 - 10.5 05-29-2018 Tommy Yosef [place] [#/Vol] 10*3/uL 02:00-0400 [facility] ([id number]) (Work Phone: ) WBC Auto #/vol 8.22 10*3/uL (N) 3.5 - 10.5 05-29-2018 Macho Flanagan (Bld) 10*3/uL 13:00-0400 [facility] ([id number]) (Work Phone: ) tsh on 2017-09-12 Thyrotropin Qn 1.98 uIU/mL (N) 09-12-2017 Tommy Orantes ton 13:00-0500 EDGARDO STAUFFER ([id number]) (Work Phone: ) lipid on 2017-09-12 C/HDL 3.1 Ratio (N) 09-12-2017 Tommy Flanagan 13:00-0500 EDGARDO STAUFFER ([id number]) (Work Phone: ) Cholesterol in 3.1 Ratio (N) 09-12-2017 Tommy richard HDL mass conc 13:00-0500 EDGARDO STAUFFER ([id number]) (Work Phone: ) Cholesterol in 68.0 mg/dL (N) 09-12-2017 Tommy Orantes ton HDL mass conc 13:00-0500 EDGARDO STAUFFER ([id number]) (Work Phone: ) Cholesterol in 105 mg/dL (N) 0 - 100 mg/dL 09-12-2017 Macho Flanagan LDL [Mass/Vol] 13:00-0500 EDGARDO STAUFFER ([id number]) (Work Phone: ) Cholesterol in 105 mg/dL (N) 09-12-2017 Tommy richard LDL mass conc 13:00-0500 EDGARDO STAUFFER ([id number]) (Work Phone: ) Cholesterol mass 213 mg/dL (N) 180 - 200 mg/dL 09-12-2017 Tommy Flanagan conc 13:00-0500 MD [facility] ([id number]) (Work Phone: ) Triglyceride 202 mg/dL (N) 0 - 150 mg/dL 09-12-2017 Tommy Flanagan mass conc 13:00-0500 MD [facility] ([id number]) (Work Phone: ) free t4 on 2017-09-12 T4 free mass 0.90 ng/dL (N) 0.9 - 2.2 ng/dL 09-12-2017 Ho mira [place] conc 13:00-0500 MD [facility] ([id number]) (Work Phone: ) comp metabolic on 2017-09-12 Albumin mass 4.0 g/dL (N) 3.4 - 5.4 g/dL 09-12-2017 Demi [place] conc 13:00-0500 MD [facility] ([id number]) (Work Phone: ) Albumin/Globulin 1.8 {ratio} (N) 1 - 2.5 {ratio} 8 Tommy Flanagan mass ratio 13:00-0500 MD [facility] ([id number]) (Work Phone: ) ALK PHOS 64 U/L (N) 09-12-2017 Tommy Flanagan 13:00-0500 MD [facility] ([id number]) (Work Phone: ) ALT enzyme 12 U/L (N) 4 - 40 U/L 09-12-2017 Tommy pauln act/vol 13:00-0500 MD [facility] ([id number]) (Work Phone: ) Anion gap 3 12 mmol/L (N) 3 - 11 mmol/L 09-12-2017 Tommy Flanagan molar conc 13:00-0500 MD [facility] ([id number]) (Work Phone: ) Anion gap 12 mmol/L (N) 3 - 11 mmol/L 09-12-2017 Tommy Navas [place] [Moles/Vol] 13:00-0500 MD [facility] ([id number]) (Work Phone: ) AST enzyme 13 U/L (N) 10 - 34 U/L 09-12-2017 Tommy mcclure act/vol 13:00-0500 EDGARDO STAUFFER ([id number]) (Work Phone: ) B/C Ratio 25.4 Ratio (N) 09-12-2017 Tommy Flanagan 13:00-0500 EDGARDO STAUFFER ([id number]) (Work Phone: ) BILI T 0.7 mg/dL (N) 09-12-2017 Tommy Flanagan 13:00-0500 EDGARDO STAUFFER ([id number]) (Work Phone: ) Bilirubin mass 0.7 mg/dL (N) 0.1 - 1.2 mg/dL 09-12-2017 H baldomero Flanagan conc 13:00-0500 EDGARDO STAUFFER ([id number]) (Work Phone: ) Calcium mass 9.3 mg/dL (N) 8.5 - 10.2 mg/dL 09-12-2017 Ho mira Flanagan conc 13:00-0500 EDGARDO STAUFFER ([id number]) (Work Phone: ) Chloride molar 99 mmol/L (N) 95 - 106 mmol/L 09-12-2017 H baldomero Flanagan conc 13:00-0500 EDGARDO STAUFFER ([id number]) (Work Phone: ) CO2 molar conc 33.0 mmol/L (N) 23 - 29 mmol/L 09-12-2017 Tommy Flanagan 13:00-0500 EDGARDO STAUFFER ([id number]) (Work Phone: ) Creatinine mass 0.7 mg/dL (N) 09-12-2017 Tommy wolff conc 13:00-0500 EDGARDO STAUFFER ([id number]) (Work Phone: ) GFR/1.73 sq M 84 ml/min/1.73m2 (N) 09-12-2017 Tommy espino predicted among 13:00-0500 EDGARDO STAUFFER ([id number]) non-blacks MDRD (Work Phone: vol rate/area ) (S/P/Bld) Globulin (S) 2.3 g/dL (N) 2 - 3.5 g/dL 09-12-2017 Tommy Flanagan [Mass/Vol] 13:00-0500 EDGARDO STAUFFER ([id number]) (Work Phone: ) Globulin 2.3 g/dL (N) 2 - 3.5 g/dL 09-12-2017 Tommy mcclure Calculated mass 13:00-0500 EDGARDO STAUFFER ([id number]) conc (S) (Work Phone: ) Glucose mass 92 mg/dL (N) 60 - 125 mg/dL 09-12-2017 Demi vidal Panch[place] conc 13:00-0500 EDGARDO STAUFFER ([id number]) (Work Phone: ) Osmolality 281 mOsmo (N) 09-12-2017 Tommy Flanagan 13:00-0500 EDGARDO STAUFFER ([id number]) (Work Phone: ) Potassium molar 4.3 mmol/L (N) 3.7 - 5.2 mmol/L 09-12-2017 Tommy Flanagan conc 13:00-0500 EDGARDO STAUFFER ([id number]) (Work Phone: ) Protein mass 6.3 g/dL (N) 6.4 - 8.3 g/dL 09-12-2017 Demi vidal Panch[place] conc 13:00-0500 EDGARDO STAUFFER ([id number]) (Work Phone: ) Sodium molar 140 mmol/L (N) 135 - 145 mmol/L 09-12-2017 H baldomero Panch[place] conc 13:00-0500 EDGARDO STAUFFER ([id number]) (Work Phone: ) TPRO 6.3 g/dL (N) 09-12-2017 Tommy Flanagan 13:00-0500 EDGARDO STAUFFER ([id number]) (Work Phone: ) Urea nitrogen 18 mg/dL (N) 7 - 20 mg/dL 09-12-2017 Tommy Flanagan mass conc 13:00-0500 EDGARDO STAUFFER ([id number]) (Work Phone: ) cbc with differential on 2017-09-12 Baso ABS# 0.1 K/ul (N) 09-12-2017 Tommy Flanagan 13:00-0500 EDGARDO STAUFFER ([id number]) (Work Phone: ) Basophils/100 0.5 % (N) 0.5 - 1 % 09-12-2017 Tommy Cr jose juan WBC (Bld) 13:00-0500 MD [facility]aj[facility] ([id number]) (Work Phone: ) Basophils/100 0.5 % (N) 0.5 - 1 % 09-12-2017 Tommy Cr jose juan WBC Auto (Bld) 13:00-0500 MD Dajie ([id number]) (Work Phone: ) Eos ABS# 0.3 K/ul (N) 09-12-2017 Tommy Flanagan 13:00-0500 MD Dajie ([id number]) (Work Phone: ) Eosinophils/100 2.2 % (N) 1 - 4 % 09-12-2017 Tommy Flanagan WBC Auto (Bld) 13:00-0500 MD Dajie ([id number]) (Work Phone: ) Erythrocyte 14.9 % (N) 11.6 - 14.6 % 09-12-2017 Tommy Flanagan distribution 13:00-0500 EDGARDO STAUFFER ([id number]) width (RBC) (Work Phone: [Ratio] ) Erythrocyte 14.9 % (N) 11.6 - 14.6 % 09-12-2017 Tommy Flanagan distribution 13:00-0500 EDGARDO STAUFFER ([id number]) width Auto Ratio (Work Phone: (RBC) ) Hematocrit (Bld) 39.1 % (N) 36.1 - 50.3 % 09-12-2017 H baldomero Flanagan [Volume 13:00-0500 EDGARDO STAUFFER ([id number]) fraction] (Work Phone: ) Hematocrit Auto 39.1 % (N) 36.1 - 50.3 % 09-12-2017 Beck Flanagan Volume Fraction 13:00-0500 EDGARDO STAUFFER ([id number]) (Bld) (Work Phone: ) Hemoglobin mass 11.8 g/dL (N) 12.1 - 17.2 g/dL 09-12-2017 Tommy Flanagan conc (Bld) 13:00-0500 EDGARDO STAUFFER ([id number]) (Work Phone: ) Lymphocytes 2.72 10*3/uL (N) 0.9 - 2.9 09-12-2017 Tommy espino (Bld) [#/Vol] 10*3/uL 13:00-0500 EDGARDO STAUFFER ([id number] ) (Work Phone: ) Lymphocytes Auto 2.72 10*3/uL (N) 0.9 - 2.9 09-12-2017 Beck Flanagan #/vol (Bld) 10*3/uL 13:00-0500 EDGARDO STAUFFER ([id number]) (Work Phone: ) Lymphocytes/100 20.4 % (N) 20 - 40 % 09-12-2017 Tommy Flanagan WBC (Bld) 13:00-0500 EDGARDO STAUFFER ([id number]) (Work Phone: ) Lymphocytes/100 20.4 % (N) 20 - 40 % 09-12-2017 Tommy Flanagan WBC Auto (Bld) 13:00-0500 EDGARDO STAUFFER ([id number]) (Work Phone: ) MCH (RBC) 29.3 pg (N) 27 - 31 pg 09-12-2017 Tommy Orantes ton [Entitic mass] 13:00-0500 EDGARDO STAUFFER ([id number]) (Work Phone: ) MCH Auto Entitic 29.3 pg (N) 27 - 31 pg 09-12-2017 Demi Flanagan mass (RBC) 13:00-0500 EDGARDO STAUFFER ([id number]) (Work Phone: ) MCHC 30.2 pg (N) 09-12-2017 Tommy Flanagan 13:00-0500 EDGARDO STAUFFER ([id number]) (Work Phone: ) MCHC (RBC) 30.2 pg (N) 09-12-2017 Tommy Flanagan [Mass/Vol] 13:00-0500 EDGARDO STAUFFER ([id number]) (Work Phone: ) MCHC Auto mass 30.2 pg (N) 09-12-2017 Tommy Orantes ton conc (RBC) 13:00-0500 EDGARDO STAUFFER ([id number]) (Work Phone: ) MCV (RBC) 97.0 fL (N) 80 - 100 fL 09-12-2017 Tommy pauln [Entitic vol] 13:00-0500 EDGARDO STAUFFER ([id number]) (Work Phone: ) MCV Auto Entitic 97.0 fL (N) 80 - 100 fL 09-12-2017 Macho Flanagan volume (RBC) 13:00-0500 EDGARDO STAUFFER ([id number]) (Work Phone: ) Routt ABS# 1.2 K/ul (N) 09-12-2017 Tommy Flanagan 13:00-0500 EDGARDO STAUFFER ([id number]) (Work Phone: ) Monocytes/100 8.7 % (N) 2 - 8 % 09-12-2017 Tommy manzano WBC Auto (Bld) 13:00-0500 EDGARDO STAUFFER ([id number]) (Work Phone: ) Neut ABS# 9.11 K/ul (N) 09-12-2017 Tommy Flanagan 13:00-0500 EDGARDO STAUFFER ([id number]) (Work Phone: ) Neutrophils/100 68.2 % (N) 40 - 60 % 09-12-2017 Tommy Flanagan WBC (Bld) 13:00-0500 EDGARDO STAUFFER ([id number]) (Work Phone: ) Neutrophils/100 68.2 % (N) 40 - 60 % 09-12-2017 Tommy Flanagan WBC Auto (Bld) 13:00-0500 EDGARDO STAUFFER ([id number]) (Work Phone: ) Platelets (Bld) 381 10*3/uL (N) 150 - 450 09-12-2017 Demi Flanagan [#/Vol] 10*3/uL 13:00-0500 EDGARDO STAUFFER ([id number]) (Work Phone: ) Platelets Auto 381 10*3/uL (N) 150 - 450 09-12-2017 Tommy Flanagan #/vol (Bld) 10*3/uL 13:00-0500 EDGARDO STAUFFER ([id number]) (Work Phone: ) RBC (Bld) 4.03 10*6/uL (N) 4.2 - 6.1 09-12-2017 Tommy mcclure [#/Vol] 10*6/uL 13:00-0500 EDGARDO STAUFFER ([id number]) (Work Phone: ) RBC Auto #/vol 4.03 10*6/uL (N) 4.2 - 6.1 09-12-2017 Demi Flanagan (Bld) 10*6/uL 13:00-0500 EDGARDO STAUFFER ([id number]) (Work Phone: ) WBC (Bld) 13.35 10*3/uL (N) 3.5 - 10.5 09-12-2017 Tommy espino [#/Vol] 10*3/uL 13:00-0500 EDGARDO STAUFFER ([id number]) (Work Phone: ) WBC Auto #/vol 13.35 10*3/uL (N) 3.5 - 10.5 09-12-2017 Beck Flanagan (Bld) 10*3/uL 13:00-0500 EDGARDO STAUFFER ([id number]) (Work Phone: ) lipid on 2016-03-09 C/HDL 3.2 Ratio (N) 03-09-2016 Tommy Flanagan 02:00-0400 EDGARDO STAUFFER ([id number]) (Work Phone: ) Cholesterol in 101 mg/dL (N) 03-09-2016 Tommy Orantes ton LDL mass conc 13:00-0400 EDGARDO STAUFFER ([id number]) (Work Phone: ) comp metabolic on 2016-03-09 ALK PHOS 64 U/L (N) 03-09-2016 Tommy Flanagan 13:00-0400 EDGARDO STAUFFER ([id number]) (Work Phone: ) Anion gap 3 10 mmol/L (N) 3 - 11 mmol/L 03-09-2016 Tommy Flanagan molar conc 13:00-0400 EDGARDO STAUFFER ([id number]) (Work Phone: ) B/C Ratio 17.2 Ratio (N) 03-09-2016 Tommy Flanagan 13:00-0400 EDGARDO STAUFFER ([id number]) (Work Phone: ) BILI T 0.9 mg/dL (N) 03-09-2016 Tommy Flanagan 02:00-0400 EDGARDO STAUFFER ([id number]) (Work Phone: ) Bilirubin mass 0.9 mg/dL (N) 0.1 - 1.2 mg/dL 03-09-2016 H baldomero Panchito conc 13:00-0400 EDGARDO STAUFFER ([id number]) (Work Phone: ) Globulin 2.1 g/dL (N) 2 - 3.5 g/dL 03-09-2016 Tommy mcclure Calculated mass 13:00-0400 EDGARDO STAUFFER ([id number]) conc (S) (Work Phone: ) TPRO 6.1 g/dL (N) 03-09-2016 Tommy Flanagan 02:00-0400 EDGARDO STAUFFER ([id number]) (Work Phone: ) cbc with differential on 2016-03-09 Baso ABS# 0.1 K/ul (N) 03-09-2016 Tommy Flanagan 13:00-0400 EDGARDO STAUFFER ([id number]) (Work Phone: ) Basophils/100 0.6 % (N) 0.5 - 1 % 03-09-2016 Tommy manzano WBC Auto (Bld) 13:00-0400 EDGARDO STAUFFER ([id number]) (Work Phone: ) Eos ABS# 0.2 K/ul (N) 03-09-2016 Tommy Flanagan 13:00-0400 EDGARDO STAUFFER ([id number]) (Work Phone: ) Erythrocyte 13.6 % (N) 11.6 - 14.6 % 03-09-2016 Tommy Flanagan distribution 13:00-0400 EDGARDO STAUFFER ([id number]) width Auto Ratio (Work Phone: (RBC) ) Hematocrit Auto 37.0 % (N) 36.1 - 50.3 % 03-09-2016 Beck Flanagan Volume Fraction 13:00-0400 EDGARDO STAUFFER ([id number]) (Bld) (Work Phone: ) Lymphocytes Auto 2.38 10*3/uL (N) 0.9 - 2.9 03-09-2016 Beck Flanagan #/vol (Bld) 10*3/uL 13:00-0400 EDGARDO STAUFFER ([id number]) (Work Phone: ) Lymphocytes/100 26.3 % (N) 20 - 40 % 03-09-2016 Tommy Flanagan WBC Auto (Bld) 13:00-0400 EDGARDO STAUFFER ([id number]) (Work Phone: ) MCH Auto Entitic 28.8 pg (N) 27 - 31 pg 03-09-2016 Demi Flanagan mass (RBC) 13:00-0400 EDGARDO STAUFFER ([id number]) (Work Phone: ) MCHC 31.4 pg (N) 03-09-2016 Tommy Flanagan 02:00-0400 EDGARDO STAUFFER ([id number]) (Work Phone: ) MCHC Auto mass 31.4 pg (N) 03-09-2016 Tommy Orantes ton conc (RBC) 13:00-0400 EDGARDO STAUFFER ([id number]) (Work Phone: ) MCV Auto Entitic 91.8 fL (N) 80 - 100 fL 03-09-2016 Macho Flanagan volume (RBC) 13:00-0400 EDGARDO STAUFFER ([id number]) (Work Phone: ) Routt ABS# 0.8 K/ul (N) 03-09-2016 Tommy Flanagan 13:00-0400 EDGARDO STAUFFER ([id number]) (Work Phone: ) Neut ABS# 5.69 K/ul (N) 03-09-2016 Tommy Flanagan 13:00-0400 EDGARDO STAUFFER ([id number]) (Work Phone: ) Neutrophils/100 62.8 % (N) 40 - 60 % 03-09-2016 Tommy Flanagan WBC Auto (Bld) 13:00-0400 EDGARDO STAUFFER ([id number]) (Work Phone: ) Platelets Auto 316 10*3/uL (N) 150 - 450 03-09-2016 Tommy Flanagan #/vol (Bld) 10*3/uL 13:00-0400 [facility] ([id number]) (Work Phone: ) RBC Auto #/vol 4.03 10*6/uL (N) 4.2 - 6.1 03-09-2016 Demi Flanagan (Bld) 10*6/uL 13:00-0400 EDGARDO STAUFFER ([id number]) (Work Phone: ) WBC Auto #/vol 9.05 10*3/uL (N) 3.5 - 10.5 03-09-2016 Hol ly Panchito (Bld) 10*3/uL 13:00-0400 [facility] ([id number]) (Work Phone: ) lipid on 2015-09-07 C/HDL 3.4 Ratio (N) 09-07-2015 Tommy Flanagan 13:00-0500 EDGARDO STAUFFER ([id number]) (Work Phone: ) Cholesterol in 117 mg/dL (N) 09-07-2015 Tommy Orantes ton LDL mass conc 13:00-0500 EDGARDO STAUFFER ([id number]) (Work Phone: ) comp metabolic on 2015-09-07 ALK PHOS 68 U/L (N) 09-07-2015 Tommy Flanagan 13:00-0500 EDGARDO STAUFFER ([id number]) (Work Phone: ) Anion gap 3 13 mmol/L (N) 3 - 11 mmol/L 09-07-2015 Tommy Flanagan molar conc 13:00-0500 EDGARDO STAUFFER ([id number]) (Work Phone: ) B/C Ratio 28.6 Ratio (N) 09-07-2015 Tommy Flnaagan 13:00-0500 EDGARDO STAUFFER ([id number]) (Work Phone: ) BILI T 0.9 mg/dL (N) 09-07-2015 Tommy Flanagan 13:00-0500 EDGARDO STAUFFER ([id number]) (Work Phone: ) Bilirubin mass 0.9 mg/dL (N) 0.1 - 1.2 mg/dL 09-07-2015 H baldomero Panchito conc 13:00-0500 EDGARDO STAUFFER ([id number]) (Work Phone: ) Globulin 2.4 g/dL (N) 2 - 3.5 g/dL 09-07-2015 Tommy mcclure Calculated mass 13:00-0500 EDGARDO STAUFFER ([id number]) conc (S) (Work Phone: ) TPRO 6.5 g/dL (N) 09-07-2015 Tommy Flanagan 13:00-0500 EDGARDO STAUFFER ([id number]) (Work Phone: ) cbc with differential on 2015-09-07 Erythrocyte 14.4 % (N) 11.6 - 14.6 % 09-07-2015 Tommy Flanagan distribution 13:00-0500 EDGARDO STAUFFER ([id number]) width Auto Ratio (Work Phone: (RBC) ) Hematocrit Auto 38.8 % (N) 36.1 - 50.3 % 09-07-2015 Beck Flanagan Volume Fraction 13:00-0500 EDGARDO STAUFFER ([id number]) (Bld) (Work Phone: ) LYM 2.1 K/uL (N) 09-07-2015 Tommy Flanagan 13:00-0500 EDGARDO STAUFFER ([id number]) (Work Phone: ) MCH Auto Entitic 28 pg (N) 27 - 31 pg 09-07-2015 Demi Flanagan mass (RBC) 13:00-0500 EDGARDO STAUFFER ([id number]) (Work Phone: ) MCHC Auto mass 31 g/dL (N) 32 - 36 g/dL 09-07-2015 Demi Flanagan conc (RBC) 13:00-0500 EDGARDO STAUFFER ([id number]) (Work Phone: ) MCV Auto Entitic 91 fL (N) 80 - 100 fL 09-07-2015 Macho Flanagan volume (RBC) 13:00-0500 EDGARDO STAUFFER ([id number]) (Work Phone: ) MID 0.6 K/uL (N) 09-07-2015 Tommy Flanagan 13:00-0500 EDGARDO STAUFFER ([id number]) (Work Phone: ) MID% 8.1 % (N) 09-07-2015 Tommy Flanagan 13:00-0500 EDGARDO STAUFFER ([id number]) (Work Phone: ) NEUT/GRAN 4.2 K/uL (N) 09-07-2015 Tommy Flanagan 13:00-0500 EDGARDO STAUFFER ([id number]) (Work Phone: ) NEUT/GRAN % 61.0 % (N) 09-07-2015 Tommy Flanagan 13:00-0500 EDGARDO STAUFFER ([id number]) (Work Phone: ) Platelets Auto 315 10*3/uL (N) 150 - 450 09-07-2015 Tommy Flanagan #/vol (Bld) 10*3/uL 13:00-0500 EDGARDO STAUFFER ([id number]) (Work Phone: ) RBC Auto #/vol 4.29 10*6/uL (N) 4.2 - 6.1 09-07-2015 Demi Flanagan (Bld) 10*6/uL 13:00-0500 EDGARDO STAUFFER ([id number]) (Work Phone: ) Variant 30.9 % (N) 0 - 1 % 09-07-2015 Tommy Colbert on lymphocytes/100 13:00-0500 EDGARDO STAUFFER ([id number]) WBC (Bld) (Work Phone: ) Variant 30.9 % (N) 0 - 1 % 09-07-2015 Tommy Cranst on lymphocytes/100 13:00-0500 [facility] ([id number]) WBC Manual cnt (Work Phone: (Bld) ) WBC Auto #/vol 6.9 10*3/uL (N) 3.5 - 10.5 09-07-2015 Demi Flanagan (Bld) 10*3/uL 13:00-0500 [facility] ([id number]) (Work Phone: ) tsh on 2014-08-28 TSH 0.920 uIU/ML (N) 08-28-2014 Tommy Colberto n 13:00-0500 [facility] ([id number]) (Work Phone: ) gfr calc on 2014-08-28 GFR AA >60 >60 (N) 08-28-2014 Tommy Flanagan 13:00-0500 [facility] ([id number]) (Work Phone: ) GFR NON-AA >60 >60 (N) 08-28-2014 Tommy Flanagan 13:00-0500 [facility] ([id number]) (Work Phone: ) chem 14 on 2014-08-28 ALK PHOS 68 U/L (N) 08-28-2014 Tommy Flanagan 13:00-0500 EDGARDO STAUFFER ([id number]) (Work Phone: ) Anion gap 3 8 mmol/L (N) 3 - 11 mmol/L 08-28-2014 Tommy Flanagan molar conc 13:00-0500 EDGARDO STAUFFER ([id number]) (Work Phone: ) BICARB 31 MMOL/L (N) 08-28-2014 Tommy Flanagan 13:00-0500 [facility] ([id number]) (Work Phone: ) BILI TOT 1.2 MG/DL (N) 08-28-2014 Tommy Flanagan 13:00-0500 [facility] ([id number]) (Work Phone: ) PROT TOT 6.2 GM/DL (N) 08-28-2014 Tommy Flanagan 13:00-0500 [facility] ([id number]) (Work Phone: ) cbc on 2014-08-28 ABS BASO 0.03 10e9/L (N) 08-28-2014 Tommy Flanagan 13:00-0500 MD [facility] ([id number]) (Work Phone: ) ABS EOS 0.08 10e9/L (N) 08-28-2014 Tommy Flanagan 13:00-0500 [facility] ([id number]) (Work Phone: ) ABS MONO 1.24 10e9/L (N) 08-28-2014 Tommy Flanagan 13:00-0500 [facility] ([id number]) (Work Phone: ) ABS NNEKA 8.56 10e9/L (N) 08-28-2014 Tommy Flanagan 13:00-0500 [facility] ([id number]) (Work Phone: ) Basophils/100 0.2 % (no code) 0.5 - 1 % 08-28-2014 Tommy manzano WBC Auto (Bld) 13:00-0500 MD [facility] ([id number]) (Work Phone: ) Erythrocyte 15.8 % (N) 11.6 - 14.6 % 08-28-2014 Tommy Flanagan distribution 13:00-0500 MD [facility] ([id number]) width Auto Ratio (Work Phone: (ULR) ) Hematocrit Auto 33.9 % (N) 36.1 - 50.3 % 08-28-2014 Beck Flanagan Volume Fraction 13:00-0500 EDGARDO STAUFFER ([id number]) (Bld) (Work Phone: ) Lymphocytes Auto 2.60 10e9/L (N) 08-28-2014 Tommy mcclure #/vol (Bld) 13:00-0500 MD [facility] ([id number]) (Work Phone: ) Lymphocytes/100 20.8 % (no code) 20 - 40 % 08-28-2014 Tommy Flanagan WBC Auto (Bld) 13:00-0500 MD [facility] ([id number]) (Work Phone: ) MCH Auto Entitic 29.9 pg (N) 27 - 31 pg 08-28-2014 Demi vidal Panchito mass (RBC) 13:00-0500 EDGARDO STAUFFER ([id number]) (Work Phone: ) MCHC Auto mass 30.4 g/dL (N) 32 - 36 g/dL 08-28-2014 Demi vidal Panchito conc (RBC) 13:00-0500 [facility] ([id number]) (Work Phone: ) MCV Auto Entitic 98.5 fL (N) 80 - 100 fL 08-28-2014 Macho cornejo Panchito volume (RBC) 13:00-0500 [facility] ([id number]) (Work Phone: ) Monocytes/100 9.9 % (no code) 2 - 8 % 08-28-2014 Tommy manzano WBC Auto (Bld) 13:00-0500 [facility] ([id number]) (Work Phone: ) Neutrophils/100 68.5 % (no code) 40 - 60 % 08-28-2014 Tommy Flanagan WBC Auto (Bld) 13:00-0500 [facility] ([id number]) (Work Phone: ) Platelet mean 10.2 fL (N) 7.2 - 11.7 fL 08-28-2014 Demi Flanagan volume Auto 13:00-0500 EDGARDO STAUFFER ([id number]) Entitic volume (Work Phone: (Bld) ) Platelets Auto 412 10e9/L (N) 08-28-2014 Tommy Orantes ton #/vol (Bld) 13:00-0500 [facility] ([id number]) (Work Phone: ) RBC Auto #/vol 3.44 10e12/L (N) 08-28-2014 Tommy Stephens ston (Bld) 13:00-0500 EDGARDO STAUFFER ([id number]) (Work Phone: ) RDW-SD 55.4 fL (N) 08-28-2014 Tommy Flanagan 13:00-0500 EDGARDO STAUFFER ([id number]) (Work Phone: ) WBC Auto #/vol 12.5 10e9/L (N) 08-28-2014 Tommy Orantes ton (Bld) 13:00-0500 [facility] ([id number]) (Work Phone: ) tsh on 2014-04-14 TSH 2.140 uIU/ML (N) 04-14-2014 Tommy Colberto n 02:00-0400 [facility] ([id number]) (Work Phone: ) gfr calc on 2014-04-14 GFR AA >60 >60 (N) 04-14-2014 Tommy Flanagan 13:00-0400 [facility] ([id number]) (Work Phone: ) GFR NON-AA >60 >60 (N) 04-14-2014 Tommy Flanagan 13:00-0400 [facility] ([id number]) (Work Phone: ) chem 14 on 2014-04-14 ALK PHOS 65 U/L (N) 04-14-2014 Tommy Flanagan 13:00-0400 [facility] ([id number]) (Work Phone: ) Anion gap 3 5 mmol/L (N) 3 - 11 mmol/L 04-14-2014 Tommy Flanagan molar conc 13:00-0400 [facility] ([id number]) (Work Phone: ) BICARB 34 MMOL/L (N) 04-14-2014 Tommy Flanagan 13:00-0400 [facility] ([id number]) (Work Phone: ) BILI TOT 0.9 MG/DL (N) 04-14-2014 Tommy Flanagan 13:00-0400 [facility] ([id number]) (Work Phone: ) PROT TOT 6.6 GM/DL (N) 04-14-2014 Tommy Flanagan 02:00-0400 [facility] ([id number]) (Work Phone: ) cbc on 2014-04-14 ABS BASO 0.04 10e9/L (N) 04-14-2014 Tommy Flanagan 13:00-0400 EDGARDO STAUFFER ([id number]) (Work Phone: ) ABS EOS 0.17 10e9/L (N) 04-14-2014 Tommy Flanagan 13:00-0400 EDGARDO STAUFFER ([id number]) (Work Phone: ) ABS MONO 1.27 10e9/L (N) 04-14-2014 Tommy Flanagan 13:00-0400 [facility] ([id number]) (Work Phone: ) ABS NNEKA 8.38 10e9/L (N) 04-14-2014 Tommy Flanagan 13:00-0400 [facility] ([id number]) (Work Phone: ) Basophils/100 0.3 % (no code) 0.5 - 1 % 04-14-2014 Tommy manzano WBC Auto (Bld) 13:00-0400 EDGARDO STAUFFER ([id number]) (Work Phone: ) Erythrocyte 13.7 % (N) 11.6 - 14.6 % 04-14-2014 Tommy Flanagan distribution 13:00-0400 [facility] ([id number]) width Auto Ratio (Work Phone: (RBC) ) Hematocrit Auto 41.4 % (N) 36.1 - 50.3 % 04-14-2014 Beck lFanagan Volume Fraction 13:00-0400 EDGARDO STAUFFER ([id number]) (Bld) (Work Phone: ) Lymphocytes Auto 2.94 10e9/L (N) 04-14-2014 Tommy mcclure #/vol (Bld) 13:00-0400 [facility] ([id number]) (Work Phone: ) Lymphocytes/100 23.0 % (no code) 20 - 40 % 04-14-2014 Tommy Flanagan WBC Auto (Bld) 13:00-0400 [facility] ([id number]) (Work Phone: ) MCH Auto Entitic 29.7 pg (N) 27 - 31 pg 04-14-2014 Demi Flanagan mass (RBC) 13:00-0400 EDGARDO STAUFFER ([id number]) (Work Phone: ) MCHC Auto mass 31.9 g/dL (N) 32 - 36 g/dL 04-14-2014 Demi vidal Panchito conc (RBC) 13:00-0400 EDGARDO STAUFFER ([id number]) (Work Phone: ) MCV Auto Entitic 93.2 fL (N) 80 - 100 fL 04-14-2014 Macho cornejo Panchito volume (RBC) 13:00-0400 EDGARDO STAUFFER ([id number]) (Work Phone: ) Monocytes/100 9.9 % (no code) 2 - 8 % 04-14-2014 Tommy manzano WBC Auto (Bld) 13:00-0400 EDGARDO STAUFFER ([id number]) (Work Phone: ) Neutrophils/100 65.5 % (no code) 40 - 60 % 04-14-2014 Tommy Flanagan WBC Auto (Bld) 13:00-0400 EDGARDO STAUFFER ([id number]) (Work Phone: ) Platelet mean 10.1 fL (N) 7.2 - 11.7 fL 04-14-2014 Demi Flanagan volume Auto 13:00-0400 EDGARDO STAUFFER ([id number]) Entitic volume (Work Phone: (Bld) ) Platelets Auto 383 10e9/L (N) 04-14-2014 Tommy Orantes ton #/vol (Bld) 13:00-0400 EDGARDO STAUFFER ([id number]) (Work Phone: ) RBC Auto #/vol 4.44 10e12/L (N) 04-14-2014 Tommy pauln (Bld) 13:00-0400 EDGARDO STAUFFER ([id number]) (Work Phone: ) RDW-SD 45.9 fL (N) 04-14-2014 Tommy Flanagan 13:00-0400 EDGARDO STAUFFER ([id number]) (Work Phone: ) WBC Auto #/vol 12.8 10e9/L (N) 04-14-2014 Tommy Orantes ton (Bld) 13:00-0400 [facility] ([id number]) (Work Phone: ) tsh on 2013-11-12 TSH 2.445 uIU/ML (N) 11-12-2013 Tommy Colberto n 02:00-0400 [facility] ([id number]) (Work Phone: ) gfr calc on 2013-11-12 GFR AA >60 >60 (N) 11-12-2013 Tommy Flanagan 13:00-0400 [facility] ([id number]) (Work Phone: ) GFR NON-AA >60 >60 (N) 11-12-2013 Tommy Flanagan 13:00-0400 [facility] ([id number]) (Work Phone: ) chem 14 on 2013-11-12 ALK PHOS 67 U/L (N) 11-12-2013 Tommy Flanagan 13:00-0400 [facility] ([id number]) (Work Phone: ) Anion gap 3 8 mmol/L (N) 3 - 11 mmol/L 11-12-2013 Tommy Flanagan molar conc 13:00-0400 [facility] ([id number]) (Work Phone: ) BICARB 30 MMOL/L (N) 11-12-2013 Tommy Flanagan 13:00-0400 [facility] ([id number]) (Work Phone: ) BILI TOT 0.9 MG/DL (N) 11-12-2013 Tommy Flanagan 13:00-0400 [facility] ([id number]) (Work Phone: ) PROT TOT 6.5 GM/DL (N) 11-12-2013 Tommy Flanagan 02:00-0400 [facility] ([id number]) (Work Phone: ) cbc on 2013-11-12 ABS BASO 0.06 10e9/L (N) 11-12-2013 Tommy Flanagan 13:00-0400 [facility] ([id number]) (Work Phone: ) ABS EOS 0.14 10e9/L (N) 11-12-2013 Tommy Flanagan 13:00-0400 EDGARDO STAUFFER ([id number]) (Work Phone: ) ABS MONO 0.72 10e9/L (N) 11-12-2013 Tommy Flanagan 13:00-0400 EDGARDO STAUFFER ([id number]) (Work Phone: ) ABS NNEKA 4.54 10e9/L (N) 11-12-2013 Tommy Flanagan 13:00-0400 EDGARDO STAUFFER ([id number]) (Work Phone: ) Basophils/100 0.8 % (no code) 0.5 - 1 % 11-12-2013 Tommy manzano WBC Auto (Bld) 13:00-0400 EDGARDO STAUFFER ([id number]) (Work Phone: ) Erythrocyte 13.8 % (N) 11.6 - 14.6 % 11-12-2013 Tommy Flanagan distribution 13:00-0400 EDGARDO STAUFFER ([id number]) width Auto Ratio (Work Phone: (RBC) ) Hematocrit Auto 41.2 % (N) 36.1 - 50.3 % 11-12-2013 Beck Flanagan Volume Fraction 13:00-0400 EDGARDO STAUFFER ([id number]) (Bld) (Work Phone: ) Lymphocytes Auto 2.14 10e9/L (N) 11-12-2013 Tommy mcclure #/vol (Bld) 13:00-0400 EDGARDO STAUFFER ([id number]) (Work Phone: ) Lymphocytes/100 28.1 % (no code) 20 - 40 % 11-12-2013 Tommy Flanagan WBC Auto (Bld) 13:00-0400 EDGARDO STAUFFER ([id number]) (Work Phone: ) MCH Auto Entitic 29.6 pg (N) 27 - 31 pg 11-12-2013 Demi Flanagan mass (RBC) 13:00-0400 EDGARDO STAUFFER ([id number]) (Work Phone: ) MCHC Auto mass 31.8 g/dL (N) 32 - 36 g/dL 11-12-2013 Demi Flanagan conc (RBC) 13:00-0400 EDGARDO STAUFFER ([id number]) (Work Phone: ) MCV Auto Entitic 93.2 fL (N) 80 - 100 fL 11-12-2013 Macho cornejo Panchito volume (RBC) 13:00-0400 EDGARDO STAUFFER ([id number]) (Work Phone: ) Monocytes/100 9.5 % (no code) 2 - 8 % 11-12-2013 Tommy manzano WBC Auto (Bld) 13:00-0400 [facility] ([id number]) (Work Phone: ) Neutrophils/100 59.8 % (no code) 40 - 60 % 11-12-2013 Tommy Flanagan WBC Auto (Bld) 13:00-0400 [facility] ([id number]) (Work Phone: ) Platelet mean 10.4 fL (N) 7.2 - 11.7 fL 11-12-2013 Demi Flanagan volume Auto 13:00-0400 EDGARDO STAUFFER ([id number]) Entitic volume (Work Phone: (Bld) ) Platelets Auto 314 10e9/L (N) 11-12-2013 Tommy Orantes ton #/vol (Bld) 13:00-0400 EDGARDO STAUFFER ([id number]) (Work Phone: ) RBC Auto #/vol 4.42 10e12/L (N) 11-12-2013 Tommy pauln (Bld) 13:00-0400 EDGARDO STAUFFER ([id number]) (Work Phone: ) RDW-SD 46.0 fL (N) 11-12-2013 Tommy Flanagan 13:00-0400 EDGARDO STAUFFER ([id number]) (Work Phone: ) WBC Auto #/vol 7.6 10e9/L (N) 11-12-2013 Tommy Orantes ton (Bld) 13:00-0400 EDGARDO STAUFFER ([id number]) (Work Phone: ) hs daja zos on 2013-04-04 HS DAJA ZOS IMMUNE IMMUNE (N) 04-04-2013 Tommy Colbert on 13:00-0400 [facility] ([id number]) (Work Phone: ) tsh on 2013-03-31 TSH 2.689 uIU/ML (N) 03-31-2013 Tommy Colberto n 02:00-0400 [facility] ([id number]) (Work Phone: ) gfr calc on 2013-03-31 GFR AA >60 >60 (N) 03-31-2013 Tommy Flanagan 13:00-0400 [facility] ([id number]) (Work Phone: ) GFR NON-AA >60 >60 (N) 03-31-2013 Tommy Flanagan 13:00-0400 [facility] ([id number]) (Work Phone: ) chem 14 on 2013-03-31 ALK PHOS 53 U/L (N) 03-31-2013 Tommy Flanagan 13:00-0400 [facility] ([id number]) (Work Phone: ) Anion gap 3 6 mmol/L (N) 3 - 11 mmol/L 03-31-2013 Tommy Flanagan molar conc 13:00-0400 [facility] ([id number]) (Work Phone: ) BICARB 33 MMOL/L (N) 03-31-2013 oTmmy Flanagan 13:00-0400 [facility] ([id number]) (Work Phone: ) BILI TOT 0.7 MG/DL (N) 03-31-2013 Tommy Flanagan 13:00-0400 [facility] ([id number]) (Work Phone: ) PROT TOT 6.7 GM/DL (N) 03-31-2013 Tommy Flanagan 02:00-0400 [facility] ([id number]) (Work Phone: ) cbc on 2013-03-31 ABS BASO 0.06 10e9/L (N) 03-31-2013 Tommy Flanagan 13:00-0400 [facility] ([id number]) (Work Phone: ) ABS EOS 0.17 10e9/L (N) 03-31-2013 Tommy Flanagan 13:00-0400 EDGARDO STAUFFER ([id number]) (Work Phone: ) ABS MONO 0.74 10e9/L (N) 03-31-2013 Tommy Flanagan 13:00-0400 EDGARDO STAUFFER ([id number]) (Work Phone: ) ABS NNEKA 4.26 10e9/L (N) 03-31-2013 Tommy Flanagan 13:00-0400 [facility] ([id number]) (Work Phone: ) Basophils/100 0.8 % (no code) 0.5 - 1 % 03-31-2013 Tommy manzano WBC Auto (Bld) 13:00-0400 [facility] ([id number]) (Work Phone: ) Erythrocyte 13.2 % (N) 11.6 - 14.6 % 03-31-2013 Tommy Flanagan distribution 13:00-0400 [facility] ([id number]) width Auto Ratio (Work Phone: (RBC) ) Hematocrit Auto 40.2 % (N) 36.1 - 50.3 % 03-31-2013 Beck Flanagan Volume Fraction 13:00-0400 EDGARDO STAUFFER ([id number]) (Bld) (Work Phone: ) Lymphocytes Auto 2.27 10e9/L (N) 03-31-2013 Tommy mcclure #/vol (Bld) 13:00-0400 [facility] ([id number]) (Work Phone: ) Lymphocytes/100 30.3 % (no code) 20 - 40 % 03-31-2013 Tommy Flanagan WBC Auto (Bld) 13:00-0400 [facility] ([id number]) (Work Phone: ) MCH Auto Entitic 29.6 pg (N) 27 - 31 pg 03-31-2013 Demi Flanagan mass (RBC) 13:00-0400 [facility] ([id number]) (Work Phone: ) MCHC Auto mass 32.3 g/dL (N) 32 - 36 g/dL 03-31-2013 Demi Flanagan conc (RBC) 13:00-0400 EDGARDO STAUFEFR ([id number]) (Work Phone: ) MCV Auto Entitic 91.6 fL (N) 80 - 100 fL 03-31-2013 Macho Flanagan volume (RBC) 13:00-0400 EDGARDO STAUFFER ([id number]) (Work Phone: ) Monocytes/100 9.8 % (no code) 2 - 8 % 03-31-2013 Tommy manzano WBC Auto (Bld) 13:00-0400 EDGARDO STAUFFER ([id number]) (Work Phone: ) Neutrophils/100 56.8 % (no code) 40 - 60 % 03-31-2013 Tommy Flanagan WBC Auto (Bld) 13:00-0400 EDGARDO STAUFFER ([id number]) (Work Phone: ) Platelet mean 10.4 fL (N) 7.2 - 11.7 fL 03-31-2013 Demi Flanagan volume Auto 13:00-0400 EDGARDO STAUFFER ([id number]) Entitic volume (Work Phone: (Bld) ) Platelets Auto 305 10e9/L (N) 03-31-2013 Tommy Orantes ton #/vol (Bld) 13:00-0400 EDGARDO STAUFFER ([id number]) (Work Phone: ) RBC Auto #/vol 4.39 10e12/L (N) 03-31-2013 Tommy pauln (Bld) 13:00-0400 EDGARDO STAUFFER ([id number]) (Work Phone: ) RDW-SD 43.2 fL (N) 03-31-2013 Tommy Flanagan 13:00-0400 EDGARDO STAUFFER ([id number]) (Work Phone: ) WBC Auto #/vol 7.5 10e9/L (N) 03-31-2013 Tommy Orantes ton (Bld) 13:00-0400 EDGARDO STAUFFER ([id number]) (Work Phone: ) tsh on 2012-09-11 TSH 2.118 uIU/ML (N) 09-11-2012 Tommy Colberto n 13:00-0500 [facility] ([id number]) (Work Phone: ) gfr calc on 2012-09-11 GFR AA >60 >60 (N) 09-11-2012 Tommy Flanagan 13:00-0500 [facility] ([id number]) (Work Phone: ) GFR NON-AA >60 >60 (N) 09-11-2012 Tommy Flanagan 13:00-0500 [facility] ([id number]) (Work Phone: ) chem 14 on 2012-09-11 ALK PHOS 57 U/L (N) 09-11-2012 Tommy Flanagan 13:00-0500 [facility] ([id number]) (Work Phone: ) Anion gap 3 8 mmol/L (N) 3 - 11 mmol/L 09-11-2012 Tommy Flanagan molar conc 13:00-0500 [facility] ([id number]) (Work Phone: ) BICARB 32 MMOL/L (N) 09-11-2012 Tommy Flanagan 13:00-0500 [facility] ([id number]) (Work Phone: ) BILI TOT 0.8 MG/DL (N) 09-11-2012 Tommy Flanagan 13:00-0500 EDGARDO STAUFFER ([id number]) (Work Phone: ) PROT TOT 6.6 GM/DL (N) 09-11-2012 Tommy Flanagan 13:00-0500 [facility] ([id number]) (Work Phone: ) cbc on 2012-09-11 ABS BASO 0.03 10e9/L (N) 09-11-2012 Tommy Flanagan 13:00-0500 [facility] ([id number]) (Work Phone: ) ABS EOS 0.17 10e9/L (N) 09-11-2012 Tommy Flanagan 13:00-0500 EDGARDO STAUFFER ([id number]) (Work Phone: ) ABS MONO 0.78 10e9/L (N) 09-11-2012 Tommy Flanagan 13:00-0500 EDGARDO STAUFFER ([id number]) (Work Phone: ) ABS NNEKA 3.88 10e9/L (N) 09-11-2012 Tommy Flanagan 13:00-0500 EDGARDO STAUFFER ([id number]) (Work Phone: ) Basophils/100 0.4 % (no code) 0.5 - 1 % 09-11-2012 Tommy manzano WBC Auto (Bld) 13:00-0500 EDGARDO STAUFFER ([id number]) (Work Phone: ) Erythrocyte 14.2 % (N) 11.6 - 14.6 % 09-11-2012 Tommy Flanagan distribution 13:00-0500 EDGARDO STAUFFER ([id number]) width Auto Ratio (Work Phone: (RBC) ) Hematocrit Auto 37.7 % (N) 36.1 - 50.3 % 09-11-2012 Beck Flanagan Volume Fraction 13:00-0500 EDGARDO STAUFFER ([id number]) (Bld) (Work Phone: ) Lymphocytes Auto 2.64 10e9/L (N) 09-11-2012 Tommy mcclure #/vol (Bld) 13:00-0500 EDGARDO STAUFFER ([id number]) (Work Phone: ) Lymphocytes/100 35.2 % (no code) 20 - 40 % 09-11-2012 Tommy Flanagan WBC Auto (Bld) 13:00-0500 EDGARDO STAUFFER ([id number]) (Work Phone: ) MCH Auto Entitic 29.3 pg (N) 27 - 31 pg 09-11-2012 Demi Flanagan mass (RBC) 13:00-0500 EDGARDO STAUFFER ([id number]) (Work Phone: ) MCHC Auto mass 31.0 g/dL (N) 32 - 36 g/dL 09-11-2012 Demi Flanagan conc (RBC) 13:00-0500 EDGARDO STAUFFER ([id number]) (Work Phone: ) MCV Auto Entitic 94.5 fL (N) 80 - 100 fL 09-11-2012 Macho Flanagan volume (RBC) 13:00-0500 EDGARDO STAUFFER ([id number]) (Work Phone: ) Monocytes/100 10.4 % (no code) 2 - 8 % 09-11-2012 Tommy manzano WBC Auto (Bld) 13:00-0500 EDGARDO STAUFFER ([id number]) (Work Phone: ) Neutrophils/100 51.7 % (no code) 40 - 60 % 09-11-2012 Tommy Flanagan WBC Auto (Bld) 13:00-0500 EDGARDO STAUFFER ([id number]) (Work Phone: ) Platelet mean 11.0 fL (N) 7.2 - 11.7 fL 09-11-2012 Demi Flanagan volume Auto 13:00-0500 EDGARDO STAUFFER ([id number]) Entitic volume (Work Phone: (Bld) ) Platelets Auto 384 10e9/L (N) 09-11-2012 Tommy Orantes ton #/vol (Bld) 13:00-0500 EDGARDO STAUFFER ([id number]) (Work Phone: ) RBC Auto #/vol 3.99 10e12/L (N) 09-11-2012 Tommy pauln (Bld) 13:00-0500 EDGARDO STAUFFER ([id number]) (Work Phone: ) RDW-SD 47.1 fL (N) 09-11-2012 Tommy Flanagan 13:00-0500 EDGARDO STAUFFER ([id number]) (Work Phone: ) WBC Auto #/vol 7.5 10e9/L (N) 09-11-2012 Tommy Orantes ton (Bld) 13:00-0500 EDGARDO STAUFFER ([id number]) (Work Phone: ) gfr calc on 2012-04-16 GFR AA >60 >60 (N) 04-16-2012 Tommy Flanagan 13:00-0400 EDGARDO STAUFFER ([id number]) (Work Phone: ) GFR NON-AA >60 >60 (N) 04-16-2012 Tommy Flanagan 13:00-0400 EDGARDO STAUFFER ([id number]) (Work Phone: ) cbc on 2012-04-16 ABS BASO 0.04 10e9/L (N) 04-16-2012 Tommy Flanagan 13:00-0 EDGARDO STAUFFER ([id number]) (Work Phone: ) ABS EOS 0.16 10e9/L (N) 04-16-2012 Tommy Flanagan 13:00-0 EDGARDO STAUFFER ([id number]) (Work Phone: ) ABS MONO 0.77 10e9/L (N) 04-16-2012 Tommy Flanagan 13:00-0 EDGARDO STAUFFER ([id number]) (Work Phone: ) ABS NNEKA 5.47 10e9/L (N) 04-16-2012 Tommy Flanagan 13:00-0 [facility] ([id number]) (Work Phone: ) Basophils/100 0.5 % (no code) 0.5 - 1 % 04-16-2012 Tommy manzano WBC Auto (Bld) 13:00-399 EDGARDO STAUFFER ([id number]) (Work Phone: ) Erythrocyte 13.7 % (N) 11.6 - 14.6 % 04-16-2012 Tommy Flanagan distribution 13:00-0 [facility] ([id number]) width Auto Ratio (Work Phone: (RBC) ) Hematocrit Auto 36.7 % (N) 36.1 - 50.3 % 04-16-2012 Beck Flanagan Volume Fraction 13:00-0 EDGARDO STAUFFER ([id number]) (Bld) (Work Phone: ) Lymphocytes Auto 2.07 10e9/L (N) 04-16-2012 Tommy mcclure #/vol (Bld) 13:00-0400 EDGARDO STAUFFER ([id number]) (Work Phone: ) Lymphocytes/100 24.3 % (no code) 20 - 40 % 04-16-2012 Tommy Flanagan WBC Auto (Bld) 13:00-0400 EDGARDO STAUFFER ([id number]) (Work Phone: ) MCH Auto Entitic 28.9 pg (N) 27 - 31 pg 04-16-2012 Demi vidal Panchito mass (RBC) 13:00-0400 EDGARDO STAUFFER ([id number]) (Work Phone: ) MCHC Auto mass 31.3 g/dL (N) 32 - 36 g/dL 04-16-2012 Demi Flanagan conc (RBC) 13:00-0400 EDGARDO STAUFFER ([id number]) (Work Phone: ) MCV Auto Entitic 92.2 fL (N) 80 - 100 fL 04-16-2012 Macho Flanagan volume (RBC) 13:00-0400 EDGARDO STAUFFER ([id number]) (Work Phone: ) Monocytes/100 9.0 % (no code) 2 - 8 % 04-16-2012 Tommy manzano WBC Auto (Bld) 13:00-0400 EDGARDO STAUFFER ([id number]) (Work Phone: ) Neutrophils/100 64.3 % (no code) 40 - 60 % 04-16-2012 Tommy Flanagan WBC Auto (Bld) 13:00-0400 EDGARDO STAUFFER ([id number]) (Work Phone: ) Platelet mean 10.2 fL (N) 7.2 - 11.7 fL 04-16-2012 Demi Flanagan volume Auto 13:00-0400 EDGARDO STAUFFER ([id number]) Entitic volume (Work Phone: (Bld) ) Platelets Auto 321 10e9/L (N) 04-16-2012 Tommy Orantes ton #/vol (Bld) 13:00-0400 EDGARDO STAUFFER ([id number]) (Work Phone: ) RBC Auto #/vol 3.98 10e12/L (N) 04-16-2012 Tommy wolff (Bld) 13:00-0400 EDGARDO STAUFFER ([id number]) (Work Phone: ) RDW-SD 44.6 fL (N) 04-16-2012 Tommy Flanagan 13:00-0400 EDGARDO STAUFFER ([id number]) (Work Phone: ) WBC Auto #/vol 8.5 10e9/L (N) 04-16-2012 Tommy Orantes ton (Bld) 13:00-0400 EDGARDO STAUFFER ([id number]) (Work Phone: ) bmp on 2012-04-16 Anion gap 3 8 mmol/L (N) 3 - 11 mmol/L 04-16-2012 Tommy Flanagan molar conc 13:00-0400 EDGARDO STAUFFER ([id number]) (Work Phone: ) BICARB 32 MMOL/L (N) 04-16-2012 Tommy Flanagan 13:00-0400 EDGARDO STAUFFER ([id number]) (Work Phone: ) Vital Signs Vital Sign Value Interpretation Reference Date [facility] (Normalized) (Normalized) Range BMI (Body Mass 40 kg/m2 (no code) 15 - 25 kg/m2 05-02-2019 Tommy Flanagan Index) 02:00-0400 EDGARDO Tong MD ([id number]) (Work Phone: ) BMI (Body Mass 39.1 kg/m2 (no code) 15 - 25 kg/m2 04-01-2019 Beck Flanagan Index) 02:00-0400 EDGARDO Tong MD ([id number]) (Work Phone: ) BMI (Body Mass 40.4 kg/m2 (no code) 15 - 25 kg/m2 03-11-2019 Beck Flanagan Index) 02:00-0400 EDGARDO Tong MD ([id number]) (Work Phone: ) BMI (Body Mass 40 kg/m2 (no code) 15 - 25 kg/m2 09-03-2018 Tommy Flanagan Index) 13:00-0500 EDGARDO Tong MD ([id number]) (Work Phone: ) BMI (Body Mass 40.2 kg/m2 (no code) 15 - 25 kg/m2 05-29-2018 Ho lly Panchito Tommy Panchito Index) 13:00-0400 [id number] Barrera MD ([id number]) (Work Phone: ) BMI (Body Mass 41.3 kg/m2 (no code) 15 - 25 kg/m2 04-25-2018 Ho lly Panchito Tommy Panchito Index) 13:00-0400 [id number] Barrera MD ([id number]) (Work Phone: ) BMI (Body Mass 40.2 kg/m2 (no code) 15 - 25 kg/m2 01-23-2018 Ho lly Panchito Tommy Panchito Index) 13:00-0400 [id number] Barrera MD ([id number]) (Work Phone: ) BMI (Body Mass 39.1 kg/m2 (no code) 15 - 25 kg/m2 09-12-2017 Ho lly Panchito [place] Index) 13:00-0500 [id number] Barrera MD ([id number]) (Work Phone: ) BMI (Body Mass 39.3 kg/m2 (no code) 15 - 25 kg/m2 08-09-2017 Ho lly Panchito [place] Index) 13:00-0500 [id number] Barrera MD ([id number]) (Work Phone: ) BMI (Body Mass 38.8 kg/m2 (no code) 15 - 25 kg/m2 05-07-2017 Ho lly Panchito [place] Index) 13:00-0400 EDGARDO Tong MD ([id number]) (Work Phone: ) BMI (Body Mass 38.9 kg/m2 (no code) 15 - 25 kg/m2 04-12-[address] Tommy Panchito Index) 13:00-0400 EDGARDO Tong MD ([id number]) (Work Phone: ) Body 98.6 [degF] (N) 97.8 - 99.0 08-31-2017 [facility] Temperature [degF] 13:00-0500 [id number] EDGARDO STAUFFER ([id number]) (Work Phone: ) Body 98.6 [degF] (N) 97.8 - 99.0 08-09-2017 [facility] Temperature [degF] 13:00-0500 [id number] [facility] ([id number]) (Work Phone: ) Body 98.6 [degF] (N) 97.8 - 99.0 02-05-2017 Tommy [facility] Temperature [degF] 13:00-0400 [id number] [facility] ([id number]) (Work Phone: ) Body 96.8 [degF] (N) 97.8 - 99.0 05-20-2014 Tommy [facility] Temperature [degF] 13:00-0400 [id number] ([id number]) (Work Phone: ) Body 98.6 [degF] (N) 97.8 - 99.0 12-26-2013 Tommy [facility] Temperature [degF] 13:00-0400 [id number] Joyce MD ([id number]) (Work Phone: ) Body 98.6 [degF] (N) 97.8 - 99.0 10-09-2013 [facility] Temperature [degF] 13:00-0500 [id number] ([id number]) (Work Phone: ) Body 98.6 [degF] (N) 97.8 - 99.0 11-21-2012 [facility] Temperature [degF] 13:00-0400 [id number] Barrera MD ([id number]) (Work Phone: ) Body 98.6 [degF] (N) 97.8 - 99.0 08-14-2012 [facility] Temperature [degF] 13:00-0500 [id number] Barrera MD ([id number]) (Work Phone: ) Body 98.6 [degF] (N) 97.8 - 99.0 08-05-2012 Tommy Flanagan Temperature [degF] 13: 73587 [facility] ([id number]) (Work Phone: ) Body 98.6 [degF] (N) 97.8 - 99.0 08-23-2011 Tommy Flanagan Temperature [degF] 13: 17084 [facility] ([id number]) (Work Phone: ) Body weight 103 kg (N) kg 05-02-2019 Tommy Flanagan 02:00 [facility] ([id number]) (Work Phone: ) Body weight 100 kg (N) kg 04-01-2019 Tommy Flanagan 02:00 [facility] ([id number]) (Work Phone: ) Body weight 103 kg (N) kg 03-11-2019 Tommy Flanagan 02:00 [facility] ([id number]) (Work Phone: ) Body weight 103 kg (N) kg 09-03-2018 Tommy Flanagan 13:050 [facility] ([id number]) (Work Phone: ) Body weight 103 kg (N) kg 05-29-2018 Tommy Flanagan 02:00 [facility] ([id number]) (Work Phone: ) Body weight 106 kg (N) kg 04-25-2018 Tommy Flanagan 02:00 [facility] ([id number]) (Work Phone: ) Body weight NaN kg (N) kg 02-06-2018 Tommy Flanagan 02:00 [facility] ([id number]) (Work Phone: ) Body weight 103 kg (N) kg 01-23-2018 Tommy Flanagan 02:00-040 [id number] , [facility] ([id number]) (Work Phone: ) Body weight NaN kg (N) kg 09-26-2017 Tommy Flanagan 13:00050 [id number] , [facility] ([id number]) (Work Phone: ) Body weight 100 kg (N) kg 09-12-2017 Tommy Flanagan 13:00-050 [id number] [facility] ([id number]) (Work Phone: ) Body weight 101 kg (N) kg 08-09-2017 Tommy Flanagan 13:00050 [id number] , [facility] ([id number]) (Work Phone: ) Body weight 99 kg (N) kg 05-07-2017 Tommy Flanagan 02:00040 [id number] , [facility] ([id number]) (Work Phone: ) Body weight 102 kg (N) kg 04-12-2017 Tommy Flanagan 02:00040 [id number] , [facility] ([id number]) (Work Phone: ) Body weight 102 kg (N) kg 02-02-2017 Tommy Flanagan 02:00040 97897 , [facility] ([id number]) (Work Phone: ) Body weight 102 kg (N) kg 01-04-2017 Tommy Flanagan 02:00-040 [id number] [facility] ([id number]) (Work Phone: ) Body weight 96 kg (N) kg 09-07-2016 Tommy Flanagan 13:00050 [id number] , [facility] ([id number]) (Work Phone: ) Body weight 99 kg (N) kg 07-06-2016 Tommy Flanagan 13:000500 61872 , [facility] ([id number]) (Work Phone: ) Body weight 98 kg (N) kg 06-08-2016 Tommy Flanagan 02:00-0400 [id number] , [facility] ([id number]) (Work Phone: ) Body weight 99 kg (N) kg 04-06-2016 Tommy Flanagan 02:00-0400 [id number] , [facility] ([id number]) (Work Phone: ) Body weight 99 kg (N) kg 03-09-2016 Tommy Flanagan 02:00-0400 [id number] , [facility] ([id number]) (Work Phone: ) Body weight 100 kg (N) kg 01-18-2016 Tommy Flanagan 02:00-0400 [id number] , [facility] ([id number]) (Work Phone: ) Body weight 100 kg (N) kg 09-09-2015 Tommy Flanagan 13:00-0500 [id number] , [facility] ([id number]) (Work Phone: ) Body weight 97 kg (N) kg 12-25-2014 Tommy Flanagan 02:00-0400 [id number] , [facility] ([id number]) (Work Phone: ) Body weight 101 kg (N) kg 10-13-2014 Tommy Flanagan 13:00-0500 [id number] , [facility] ([id number]) (Work Phone: ) Body weight 96 kg (N) kg 08-28-2014 Tommy Flanagan 13:00-0500 [id number] , [facility] ([id number]) (Work Phone: ) Body weight 99 kg (N) kg 05-07-2014 Tommy Flanagan 02:00-0400 [id number] [facility]FFER[facility] ([id number]) (Work Phone: ) Body weight 96 kg (N) kg 04-16-2014 Tommy Flanagan 02:00-0400 [id number] , [facility] ([id number]) (Work Phone: ) Body weight 95 kg (N) kg 01-27-2014 Tommy Flanagan 02:00-0400 [id number] [facility] ([id number]) (Work Phone: ) Body weight 95 kg (N) kg 01-21-2014 Tommy Flanagan 02:00-0400 [id number] [facility] ([id number]) (Work Phone: ) Body weight 94 kg (N) kg 01-07-2014 Tommy Flanagan 02:00-0400 [id number] , [facility] ([id number]) (Work Phone: ) Body weight 96 kg (N) kg 12-26-2013 Tommy Flanagan 02:00-0400 [id number] , [facility] ([id number]) (Work Phone: ) Body weight 97 kg (N) kg 11-12-2013 Tommy Flanagan 02:00-0400 [id number] [facility] ([id number]) (Work Phone: ) Body weight 94 kg (N) kg 10-09-2013 Tommy Flanagan 13:00-0500 [id number] , [facility] ([id number]) (Work Phone: ) Body weight 94 kg (N) kg 04-03-2013 Tommy Flanagan 02:00-0400 [id number] , [facility] ([id number]) (Work Phone: ) Body weight 93 kg (N) kg 01-06-2013 Tommy Flanagan 02:00-0400 [id number] , [facility] ([id number]) (Work Phone: ) Body weight 93 kg (N) kg 11-21-2012 Tommy Flanagan 02:00-0400 51005 , LLC ([id number]) (Work Phone: ) Body weight 92 kg (N) kg 10-28-2012 Tommy Flanagan 13:00-0500 [id number] , LLC ([id number]) (Work Phone: ) Body weight 92 kg (N) kg 09-30-2012 Tommy Flanagan 13:00-0500 [id number] , LLC ([id number]) (Work Phone: ) Body weight 95 kg (N) kg 08-14-2012 Tommy Flanagan 13:00-0500 39501 , LLC ([id number]) (Work Phone: ) Body weight 95 kg (N) kg 08-05-2012 Tommy Flanagan 13:00-0500 [id number] , [facility] ([id number]) (Work Phone: ) Body weight 96 kg (N) kg 05-27-2012 Tommy Flanagan 02:00-0400 78827 , LLC ([id number]) (Work Phone: ) Body weight 96 kg (N) kg 05-03-2012 Tommy Flanagan 02:00-0400 22319 , LLC ([id number]) (Work Phone: ) Body weight 97 kg (N) kg 03-25-2012 Tommy Flanagan 02:00-0400 [id number] , LLC ([id number]) (Work Phone: ) Body weight 98 kg (N) kg 03-12-2012 Tommy Flanagan 02:00-0400 [id number] STAUFFER, LLC ([id number]) (Work Phone: ) Body weight 99 kg (N) kg 01-23-2012 Tommy Flanagan 02:00-0400 11020 , LLC ([id number]) (Work Phone: ) Body weight 97 kg (N) kg 12-25-2011 Tommy Flanagan 02:00-0400 33679Bruce STAUFFER, [facility] ([id number]) (Work Phone: ) Body weight 99 kg (N) kg 12-04-2011 Tommy Flanagan 02:00-0400 [id number] , LLC ([id number]) (Work Phone: ) Body weight 96 kg (N) kg 09-06-2011 Tommy Flanagan 13:00-0500 [id number] , LLC ([id number]) (Work Phone: ) Body weight 96 kg (N) kg 08-30-2011 Tommy Flanagan 13:00-0500 26117 , LLC ([id number]) (Work Phone: ) Body weight 96 kg (N) kg 08-23-2011 Tommy Flanagan 13:00-0500 21905 , LLC ([id number]) (Work Phone: ) Body weight 96 kg (N) kg 08-09-2011 Tommy Flanagan 13:000500 73340 , LLC ([id number]) (Work Phone: ) Body weight 96 kg (N) kg 05-04-2011 Tommy Flanagan 02:000 78047 , LLC ([id number]) (Work Phone: ) Body weight 95 kg (N) kg 04-19-2011 Tommy Flanagan 02:000 37257 MD LLC ([id number]) (Work Phone: ) Blood Pressure 128/ (N,N) Systolic: 90 - 04-01-2019 Tommy Flanagan 80mm[Hg] 120 mm[Hg] 02:00 Ran STAUFFER [facility] ([id number]) (Work Diastolic: 60 Phone: - 80 mm[Hg] ) Blood Pressure 142/ (N,N) Systolic: 90 - 03-11-2019 Tommy Flanagan 80mm[Hg] 120 mm[Hg] 02:00 11564 , LLC ([id number]) (Work Diastolic: 60 Phone: - 80 mm[Hg] ) Blood Pressure 134/ (N,N) Systolic: 09-03-2018 Tommy Flanagan 76mm[Hg] 120 mm[Hg] 13:00-0500 87208Bruce [facility]AUFFER [facility] ([id number]) (Work Diastolic: 60 Phone: - 80 mm[Hg] ) Blood Pressure 126/ (N,N) Systolic: 05-29-2018 Tommy Flanagan 66mm[Hg] 120 mm[Hg] 13:00-0400 Ran [facility] ([id number]) (Work Diastolic: 60 Phone: - 80 mm[Hg] ) Blood Pressure 122/ (N,N) Systolic: 04-25-2018 Tommy Flanagan 70mm[Hg] 120 mm[Hg] 13:00-0400 [id number] MD LLC ([id number]) (Work Diastolic: 60 Phone: - 80 mm[Hg] ) Blood Pressure 132/ (N,N) Systolic: 01-23-2018 Tommy Flanagan 68mm[Hg] 120 mm[Hg] 13:00-0400 05226Bruce [facility] ([id number]) (Work Diastolic: 60 Phone: - 80 mm[Hg] ) Blood Pressure 138/ (N,N) Systolic: 09-26-2017 Tommy Flanagan 84mm[Hg] 120 mm[Hg] 13:00-0500 Ran [facility] ([id number]) (Work Diastolic: 60 Phone: - 80 mm[Hg] ) Blood Pressure 142/ (N,N) Systolic: 09-12-2017 Tommy Flanagan 62mm[Hg] 120 mm[Hg] 13:00-0500 Ran [facility] ([id number]) (Work Diastolic: 60 Phone: - 80 mm[Hg] ) Blood Pressure 132/ (N,N) Systolic: 08-31-2017 Tommy Flanagan 74mm[Hg] 120 mm[Hg] 13:00-0500 EDGARDO Tong MD ([id number]) (Work Diastolic: 60 Phone: - 80 mm[Hg] ) Blood Pressure 132/ (N,N) Systolic: - 08-09-2017 Tommy [place] 82mm[Hg] 120 mm[Hg] 13: Ran [facility] ([id number]) (Work Diastolic: 60 Phone: - 80 mm[Hg] ) Blood Pressure 118/ (N,N) Systolic: - 05-07-2017 Tommy Beebe Panchito 70mm[Hg] 120 mm[Hg] 13: Ran [facility] ([id number]) (Work Diastolic: 60 Phone: - 80 mm[Hg] ) Blood Pressure 140/ (N,N) Systolic: - 04-12-2017 Tommy Flanagan Tommy Panchito 72mm[Hg] 120 mm[Hg] 13: Ran [facility] ([id number]) (Work Diastolic: 60 Phone: - 80 mm[Hg] ) Head 246 cm (N) cm 11-12-2013 Tommy Panchito Dominique baldomero Flanagan Circumference 13: EDGARDO Tong MD ([id number]) (Work Phone: ) Height 160 cm (N) cm 05-02-2019 Tommy Flanagan Dominique baldomero Flanagan 02:00 EDGARDO Tong MD ([id number]) (Work Phone: ) Height 160 cm (N) cm 04-01-2019 Tommy Flanagan Dominique baldomero Flanagan 02:00040 Ran ST[facility]FFRE [facility] ([id number]) (Work Phone: ) Height 160 cm (N) cm 03-11-2019 Tommy Flanagan 02:00040 Ran [facility] ([id number]) (Work Phone: ) Height 160 cm (N) cm 09-03-2018 Tommy Flanagan Dominique baldomero Flanagan 13:050 Ran [facility] ([id number]) (Work Phone: ) Height 160 cm (N) cm 05-29-2018 Tommy Flanagan 13:00-0400 Ran [facility] ([id number]) (Work Phone: ) Height 160 cm (N) cm 04-25-2018 Tommy Flanagan 13:00-0400 Ran [facility] ([id number]) (Work Phone: ) Height NaN cm (N) cm 02-06-2018 Tommy Flanagan 13:00-0400 Ran [facility] ([id number]) (Work Phone: ) Height 160 cm (N) cm 01-23-2018 Tommy Flanagan 13:00-0400 Ran [facility] ([id number]) (Work Phone: ) Height 160 cm (N) cm 09-26-2017 Tommy Flanagan 13:00-0500 Ran [facility] ([id number]) (Work Phone: ) Height 160 cm (N) cm 09-12-2017 Tommy Flanagan 13:00-0500 Ran [facility] ([id number]) (Work Phone: ) Height 160 cm (N) cm 08-31-2017 Tommy Flanagan 13:000500 Ran [facility] ([id number]) (Work Phone: ) Height 160 cm (N) cm 08-09-2017 Tommy Flanagan 13:00-0500 Ran [facility] ([id number]) (Work Phone: ) Height 160 cm (N) cm 05-07-2017 Tommy Flanagan 13:00-0400 Ran [facility] ([id number]) (Work Phone: ) Height 162 cm (N) cm 04-12-2017 Tommy Flanagan 13:00-0400 Ran [facility] ([id number]) (Work Phone: ) Height 161 cm (N) cm 09-20-2011 Tommy Flanagan 13:00-0500 [id number] MD LLC ([id number]) (Work Phone: ) Height 161 cm (N) cm 08-09-2011 Tommy Flanagan 13:00-0500 84904 MD LLC ([id number]) (Work Phone: ) Height 159 cm (N) cm 05-04-2011 Tommy Flanagan 13:00-0400 34795 MD [facility] ([id number]) (Work Phone: ) Height 164 cm (N) cm 04-19-2011 Tommy Flanagan Dominique baldomero Flanagan 13:00-0400 31203 MD LLC ([id number]) (Work Phone: ) Pulse (Heart 87 /min (N) 60 - 100 /min 04-01-2019 Tommy Cr [place] Tommy Panchito Rate) 02:00-0400 82377 MD LLC ([id number]) (Work Phone: ) Pulse (Heart 72 /min (N) 60 - 100 /min 03-11-2019 Tommy Cr [place] Tommy [place] Rate) 02:00-0400 02294 MD [facility] ([id number]) (Work Phone: ) Pulse (Heart 83 /min (N) 60 - 100 /min 09-03-2018 Tommy Cr [place] Tommy [place] Rate) 13:00-0500 63487 MD LLC ([id number]) (Work Phone: ) Pulse (Heart 108 /min (N) 60 - 100 /min 05-29-2018 Tommy Cr [place] Tommy Panchito Rate) 13:00-0400 64051 MD LLC ([id number]) (Work Phone: ) Pulse (Heart 84 /min (N) 60 - 100 /min 04-25-2018 Tommy Cr [place] Tommy Panchito Rate) 13:00-0400 46246 EDGARDO STAUFFER ([id number]) (Work Phone: ) Pulse (Heart 74 /min (N) 60 - 100 /min 01-23-2018 Tommy Beebe [place] Rate) 13:00-0400 [id number] Barrera MD ([id number]) (Work Phone: ) Pulse (Heart 62 /min (N) 60 - 100 /min 09-26-2017 Tommy Yosef Simmsy [place] Rate) 13:00-0500 EDGARDO Tong MD ([id number]) (Work Phone: ) Pulse (Heart 49 /min (N) 60 - 100 /min 09-12-2017 Tommy Beebe [place] Rate) 13:00-0500 [id number] Barrera MD ([id number]) (Work Phone: ) Pulse (Heart 79 /min (N) 60 - 100 /min 08-31-2017 Tommy Beebe Panchito Rate) 13:00-0500 [id number] Barrera MD ([id number]) (Work Phone: ) Pulse (Heart 85 /min (N) 60 - 100 /min 08-09-2017 Tommy Beebe Panchito Rate) 13:00-0500 [id number] Barrera MD ([id number]) (Work Phone: ) Pulse (Heart 58 /min (N) 60 - 100 /min 05-07-2017 Tommy Beebe Panchito Rate) 13:00-0400 [id number] Barrera MD ([id number]) (Work Phone: ) Pulse (Heart 78 /min (N) 60 - 100 /min 04-12-2017 Tommy Yosef Beebe Panchito Rate) 13:00-0400 EDGARDO Tong MD ([id number]) (Work Phone: ) Pulse Oximetry 94 % (N) 95 - 100 % 04-01-2019 Tommy Beebe Panchito 02:00-0400 EDGARDO Tong MD ([id number]) (Work Phone: ) Pulse Oximetry 95 % (N) 95 - 100 % 03-11-2019 Tommy Flanagan 02:00-0400 [id number] MD [facility] ([id number]) (Work Phone: ) Pulse Oximetry 93 % (N) 95 - 100 % 09-03-2018 Tommy Flanagan 13:00-0500 59692 MD [facility] ([id number]) (Work Phone: ) Pulse Oximetry 97 % (N) 95 - 100 % 05-29-2018 Tommy Flanagan 13:00-0400 98017 , LLC ([id number]) (Work Phone: ) Pulse Oximetry 97 % (N) 95 - 100 % 04-25-2018 Tommy Flanagan 13:00-0400 34298 MD LLC ([id number]) (Work Phone: ) Pulse Oximetry 97 % (N) 95 - 100 % 01-23-2018 Tommy Flanagan 13:00-0400 35568 , LLC ([id number]) (Work Phone: ) Pulse Oximetry 96 % (N) 95 - 100 % 09-26-2017 Tommy Flanagan 13:00-0500 66028Bruce [facility]AUFFER [facility] ([id number]) (Work Phone: ) Pulse Oximetry 98 % (N) 95 - 100 % 09-12-2017 Tommy Flanagan 13:00-0500 55178Bruce STAUFFER [facility] ([id number]) (Work Phone: ) Pulse Oximetry 94 % (N) 95 - 100 % 08-31-2017 Tommy Flanagan 13:00-0500 Ran [facility]FFER [facility] ([id number]) (Work Phone: ) Pulse Oximetry 98 % (N) 95 - 100 % 08-09-2017 Tommy Flanagan 13:00-0500 Ran [facility] ([id number]) (Work Phone: ) Pulse Oximetry 97 % (N) 95 - 100 % 05-07-2017 Tommy mcclure Tommy Panchito 13:00-0400 92050 , LLC ([id number]) (Work Phone: ) Pulse Oximetry 98 % (N) 95 - 100 % 04-12-2017 Tommy [place] 13:00-0400 89763 , LLC ([id number]) (Work Phone: ) Waist 109 cm (N) 04-25-2018 TommyIvania espino Circumference 13:00-0400 78208 , LLC ([id number]) (Work Phone: ) Waist 107 cm (N) 04-12-2017 Tommy espino Circumference 13:00-0400 32266 , LLC ([id number]) (Work Phone: ) Weight 103 kg (N) kg 09-03-2018 Tommy Broadway H baldomero Flanagan 13:00-0500 Ran STAUFFER, LLC ([id number]) (Work Phone: ) Weight 103 kg (N) kg 05-29-2018 Tommy Panchito Dominique baldomero Flanagan 13:00-0400 90053Bruce STAUFFER, LLC ([id number]) (Work Phone: ) Weight 106 kg (N) kg 04-25-2018 Tommy Flanagan Dominique baldomero Flanagan 13:00-0400 Ran [facility]FFER [facility] ([id number]) (Work Phone: ) Weight NaN kg (N) kg 02-06-2018 Tommy Flanagan Dominique baldomero Flanagan 13:00-0400 Ran STAUFFER, [facility] ([id number]) (Work Phone: ) Weight 103 kg (N) kg 01-23-2018 Tommy Panchito Dominique baldomero Flanagan 13:00-0400 Ran [facility] ([id number]) (Work Phone: ) Weight NaN kg (N) kg 09-26-2017 Tommy Flanagan Dominique baldomero Flanagan 13:00-0500 [id number] MD LLC ([id number]) (Work Phone: ) Weight 100 kg (N) kg 09-12-2017 Tommy Fox baldomero Flanagan 13:00-0500 67521Bruce STAUFFER, [facility] ([id number]) (Work Phone: ) Weight 101 kg (N) kg 08-09-2017 Tommy Fox baldomero Flanagan 13:00-0500 Ran STAUFFER, [facility] ([id number]) (Work Phone: ) Weight 99 kg (N) kg 05-07-2017 Tommy Fox baldomero Flanagan 13:00-0400 Ran STAUFFER, [facility] ([id number]) (Work Phone: ) Weight 102 kg (N) kg 04-12-2017 Tommy Fox baldomero Flanagan 13:00-0400 21729Bruce STAUFFER, LLC ([id number]) (Work Phone: ) Weight 102 kg (N) kg 02-02-2017 Tommy Fox baldomero Flanagan 13:00-0400 36574 , LLC ([id number]) (Work Phone: ) Weight NaN kg (N) kg 01-15-2017 Tommy Fox baldomero Flanagan 13:00-0400 08702Bruce STAUFFER, LLC ([id number]) (Work Phone: ) Weight 102 kg (N) kg 01-04-2017 Tommy Fox baldomero Flanagan 13:00-0400 98321 , LLC ([id number]) (Work Phone: ) Weight 96 kg (N) kg 09-07-2016 Tommy Panchito Dominique baldomero Flanagan 13:00-0500 Ran STAUFFER, [facility] ([id number]) (Work Phone: ) Weight 99 kg (N) kg 07-06-2016 Tommy Panchito H baldomero Flanagan 13:00-0500 45329Bruce STAUFFER, LLC ([id number]) (Work Phone: ) Weight 98 kg (N) kg 06-08-2016 Tommy Fox baldomero Flanagan 13:00-0400 73589 , LLC ([id number]) (Work Phone: ) Weight 99 kg (N) kg 04-06-2016 Tommy Fox baldomero Flanagan 13:00-0400 86778 , LLC ([id number]) (Work Phone: ) Weight 99 kg (N) kg 03-09-2016 Tommy Fox baldomero Flanagan 13:00-0400 Ran STAUFFER, LLC ([id number]) (Work Phone: ) Weight 100 kg (N) kg 01-18-2016 Tommy Flanagan Dominique baldomero Flanagan 13:00-0400 Ran STAUFFER, LLC ([id number]) (Work Phone: ) Weight 100 kg (N) kg 09-09-2015 Tommy Panchito Dominique baldomero Flanagan 13:00-0500 Ran STAUFFER, LLC ([id number]) (Work Phone: ) Weight 97 kg (N) kg 12-25-2014 Tommy Panchito Dominique baldomero Flanagan 13:00-0400 Ran STAUFFER, [facility] ([id number]) (Work Phone: ) Weight 101 kg (N) kg 10-13-2014 Tommy Fox baldomero Flanagan 13:00-0500 Ran STAUFFER, LLC ([id number]) (Work Phone: ) Weight 96 kg (N) kg 08-28-2014 Tommy Panchito Dominique baldomero Flanagan 13:00-0500 Ran STAUFFER, LLC ([id number]) (Work Phone: ) Weight 99 kg (N) kg 05-07-2014 Tommy Flanagan Dominique baldomero Flanagan 13:00-0400 Ran [facility]FFER [facility] ([id number]) (Work Phone: ) Weight 96 kg (N) kg 04-16-2014 Tommy Flanagan Dominique baldomero Flanagan 13:00-0400 Ran [facility]FFER [facility] ([id number]) (Work Phone: ) Weight 95 kg (N) kg 01-27-2014 Tommy Fox baldomero Flanagan 13:00-0400 49113 , LLC ([id number]) (Work Phone: ) Weight 95 kg (N) kg 01-21-2014 Tommy Fox baldomero Panchito 13:00-0400 13722 , LLC ([id number]) (Work Phone: ) Weight 94 kg (N) kg 01-07-2014 Tommy Fox baldomero Flanagan 13:00-0400 Ran STAUFFER, LLC ([id number]) (Work Phone: ) Weight 96 kg (N) kg 12-26-2013 Tommy Fox baldomero Flanagan 13:00-0400 25089Bruce STAUFFER, LLC ([id number]) (Work Phone: ) Weight 97 kg (N) kg 11-12-2013 Tommy Fox baldomero Flanagan 13:00-0400 Ran STAUFFER, LLC ([id number]) (Work Phone: ) Weight 94 kg (N) kg 10-09-2013 Tommy Fox baldomero Flanagan 13:00-0500 Ran STAUFFER, [facility] ([id number]) (Work Phone: ) Weight 94 kg (N) kg 04-03-2013 Tommy Fox baldomero Flanagan 13:00-0400 01370Bruce STAUFFER [facility] ([id number]) (Work Phone: ) Weight 93 kg (N) kg 01-06-2013 Tommy Fox baldomero Flanagan 13:00-0400 Ran STAUFFER, [facility] ([id number]) (Work Phone: ) Weight 93 kg (N) kg 11-21-2012 Tommy Fox baldomero Flanagan 13:00-0400 Ran STAUFFER, [facility] ([id number]) (Work Phone: ) Weight 92 kg (N) kg 10-28-2012 Tommy Flanagan Dominique baldomero Flanagan 13:00-0500 Ran STAUFFER, LLC ([id number]) (Work Phone: ) Weight 92 kg (N) kg 09-30-2012 Tmomy Fox baldomero Flanagan 13:00-0500 51644 , LLC ([id number]) (Work Phone: ) Weight 95 kg (N) kg 08-14-2012 Tommy Fox baldomero Flanagan 13:00-0500 [id number] , LLC ([id number]) (Work Phone: ) Weight 95 kg (N) kg 08-05-2012 Tommy Fox baldomero Flanagan 13:00-0500 20672 , LLC ([id number]) (Work Phone: ) Weight 98 kg (N) kg 07-15-2012 Tommy Panchito H baldomero Flanagan 13:00-0500 14335Bruce STAUFFER [facility] ([id number]) (Work Phone: ) Weight 96 kg (N) kg 05-27-2012 Tommy Broadway H baldomero Flanagan 13:00-0400 63128Bruce STAUFFER, LLC ([id number]) (Work Phone: ) Weight 96 kg (N) kg 05-03-2012 Tommy Panchito Dominique baldomero Flanagan 13:00-0400 91795Bruce [facility]FFER [facility] ([id number]) (Work Phone: ) Weight 97 kg (N) kg 03-25-2012 Tommy Flanagan Dominique baldomero Flanagan 13:00-0400 17049 MD LLC ([id number]) (Work Phone: ) Weight 98 kg (N) kg 03-12-2012 Tommy Fox baldomero Flanagan 13:00-0400 89664Bruce STAUFFER, LLC ([id number]) (Work Phone: ) Weight 99 kg (N) kg 01-23-2012 Tommy Flanagan Dominique baldomero Flanagan 13:00-0400 94984Bruce [facility]FFER [facility] ([id number]) (Work Phone: ) Weight 98 kg (N) kg 01-12-2012 Tommy Flanagan Dominique baldomero Flanagan 13:00-0400 Ran [facility]FFER [facility] ([id number]) (Work Phone: ) Weight 97 kg (N) kg 12-25-2011 Tommy Flanagan 13:00-0400 48719 MD LLC ([id number]) (Work Phone: ) Weight 99 kg (N) kg 12-04-2011 Tommy Flanagan 13:00-0400 Ran [facility]FFER [facility] ([id number]) (Work Phone: ) Weight 95 kg (N) kg 09-20-2011 Tommy Flanagan 13:00-0500 Ran [facility] ([id number]) (Work Phone: ) Weight 96 kg (N) kg 09-06-2011 Tommy Flanagan 13:00-0500 Ran [facility] ([id number]) (Work Phone: ) Weight 96 kg (N) kg 08-30-2011 Tommy Flanagan 13:00-0500 Ran [facility] ([id number]) (Work Phone: ) Weight 96 kg (N) kg 08-23-2011 Tommy Flanagan 13:00-0500 Ran [facility] ([id number]) (Work Phone: ) Weight 96 kg (N) kg 08-09-2011 Tommy Flanagan 13:00-0500 Ran [facility] ([id number]) (Work Phone: ) Weight 96 kg (N) kg 05-04-2011 Tommy Flanagan 13:00-0400 Ran [facility] ([id number]) (Work Phone: ) Weight 95 kg (N) kg 04-19-2011 Tommy Flanagan 13:00-0400 Ran [facility]FFER [facility] ([id number]) (Work Phone: ) Interventions No Information Plan of Treatment Normalized Care Care Detail Care Activity Date Care Provider F acility Activity Development of care Hypertension - well 05-29-2018 Tommy richard [id number] Tommy Flanagan MD, plan controlled - LLC ([id number]) (Work continue with Phone: current medications, ) continue with no added salt diet. Pt has been encouraged to exercise daily.The pt has been advised to call the office if there are any acute concerns about change in blood pressure readings at home.Hypothyroidism - pt with chronic hypothyroidism, continue with current medication, will monitor pt to signs or symptoms of lack of adequate supplementation. Pt is to continue with current dose of medication unless directed otherwise. Check labs at regular intervals wither q 3 months or q 6 months based on previous levels of control.Hyperlipidem ia - pt has been counseled about appropriate [...] and to assure normal liver response to medications.Knee pain - RX for voltaren gel - dry needling with surya randall for knees and back. Development of care Wound Instructions - 04-30-2018 Tommy wolff 76799 Tommy Flanagan MD, plan Pt was instructed to Dajie ([id number]) (Wo rk keep the wound Phone: clean, call if ) redness, pustular drainage, or any other acute concerns. Development of care Medicare Exam - 04-25-2018 Tommy Flanagan [id number] Tommy Flanagan MD, plan today we discussed LLC ([id number]) (Work the patients past Phone: history, ) immunizations, preventative exams/evaluations - colonoscopy, fecal occult [...] risk and to maintain independence in the home.Today we discussed the need for the patient to create paperwork for Advanced directives as well as for the patient to provide this office with a copy of her DOPA paperwork for health care surrogate.Wound Instructions - Pt was instructed to keep the wound clean, use silvadene cream as directed and call with any concerns or s/s of infection. Patient and verbalized understanding of plan. Development of care Cerumen Impaction - 02-06-2018 Tommy richard 48660 Tommy Flanagan MD, plan The impacted cerumen LLC ([id number]) (Wo rk was removed with the Phone: use of the ear ) lary. The patient tolerated the procedure without incident and had improvement in hearing.The wax was removed by the practitioner due to the wax being more complicated to remove, and staff was needed to assist the removal of the wax by holding the ear, and keeping patient stabilized during the removal process. Development of care Hypertension - well 01-23-2018 [place] [address] Tommy Flanagan MD, plan controlled - LLC ([id number]) (Work continue with Phone: current medications, ) continue with no added salt diet. Pt has been encouraged to exercise daily.The pt has been advised to call the office if there are any acute concerns about change in blood pressure readings at home.Hypothyroidism - pt with chronic hypothyroidism, continue with current medication, will monitor pt to signs or symptoms of lack of adequate supplementation. Pt is to continue with current dose of medication unless directed otherwise. Check labs at regular intervals wither q 3 months or q 6 months based on previous levels of control.Hyperlipidem ia - pt has been counseled about appropriate [...] to assure normal liver response to medications. Development of care Cough - improved - 09-26-2017 [place] [id number] Tommy Flanagan MD, plan sinusitis resolved. LLC ([id number]) (Wor k Phone: ) Development of care Acute Maxillary 09-12-2017 Tommy Flanagan [id number] Tommy Flanagan MD, plan Sinusitis - if not Dajie ([id number]) (Work improving - pt would Phone: like to see an ENT - ) Hortensia Tompkins in [place].Treatment as follows:cefdinir - antibiotic twice daily x 2 weeksdiflucan antifungal one time daily x 2 weeksuse your sinus rinse at least twice each morning and eveningHypertension - well controlled - continue with current medications, continue with no added salt diet. Pt has been encouraged to exercise daily.The pt has been advised to call the office if there are any acute concerns about change in blood pressure readings at home.Hyperlipidemia - pt has been counseled about appropriate [...] and to assure normal liver response to medications.Hypothyr oidism - pt with chronic hypothyroidism, continue with current medication, will monitor pt to signs or Gary - Pt advised to increase fluids, vitamin C. Discussed natural and expected course of this diagnosis and need to alert me if symptoms do not follow expected course, or if any worse. RX sent to patient's pharmacy.Knee pain - Chronic pain - symptoms - refilled hydrocodone. Development of care Sinusitis - Pt has 08-31-2017 [place] [address] Tommy Flanagan MD, plan acute infection - Dajie ([id number]) (Work pain in face, Phone: maxillary region, Pt ) informed to use decongestant, RX given to patient, sinus rinses also recommended. Call if symptoms do not show improvement.Mayra s - chronic - recommended pt to use allergy medication as prescribed. Pt has been counseled as to the appropriate use of the medication. Pt to call if allergy symptoms are not controlled with the medication.If using nasal spray, instructions as follows: Nasal spray- use twice daily, one spray per nostril twice daily, after 30 minutes, rinse out nose with saline spray.. Use opposite hand per nostril to spray in the nasal steroid allergy spray. Development of care URI - Pt advised to 08-09-2017 Tommy richard 14469 Tommy Flanagan MD, plan increase fluids, LLC ([id number]) (Work vitamin C. Discussed Phone: natural and expected ) course of this diagnosis and need to alert me if symptoms do not follow expected course, or if any worse. RX sent to patient's pharmacy. Development of care Hypertension - well 05-07-2017 Tommy richard 14599 Tommy Flanagan MD, plan controlled - LLC ([id number]) (Work continue with Phone: current medications, ) continue with no added salt diet. Pt has been encouraged to exercise daily.The pt has been advised to call the office if there are any acute concerns about change in blood pressure readings at home.Hyperlipidemia - pt has been counseled about appropriate [...] and to assure normal liver response to medications.Hypothyr oidism - pt with chronic hypothyroidism, continue with current medication, will monitor pt to signs or symptoms of lack of adequate supplementation. Pt is to continue with current dose of medication unless directed otherwise. Check labs at regular intervals wither q 3 months or q 6 months based on previous levels of control.Knee pain - Chronic pain - symptoms - refilled hydrocodone. Development of care Medicare Exam - 04-12-2017 Tommy Flanagan 55568 Tommy Flanagan MD, plan today we discussed Dajie ([id number]) (Work the patients past Phone: history, ) immunizations, preventative exams/evaluations - colonoscopy, fecal occult [...] risk and to maintain independence in the home.Today we discussed the need for the patient to create paperwork for Advanced directives as well as for the patient to provide this office with a copy of her DOPA paperwork for health care surrogate. Development of care Hypertension - well 09-03-2018 [place] [address] Tommy Flanagan MD, plan controlled - Dajie ([id number]) (Work continue with Phone: current medications, ) continue with no added salt diet. Pt has been encouraged to exercise daily.The pt has been advised to call the office if there are any acute concerns about change in blood pressure readings at home.Hyperlipidemia - pt has been counseled about appropriate [...] and to assure normal liver response to medications.Hypothyr oidism - pt with chronic hypothyroidism, continue with current medication, will monitor pt to signs or symptoms of lack of adequate supplementation. Pt is to continue with current dose of medication unless directed otherwise. Check labs at regular intervals q 3 months or q 6 months based on previous levels of control.Chronic low back pain - supportive care at this time. Development of care Sinusitis - Pt has 03-11-2019 [place] [address] Tommy Flanagan MD, plan acute infection - Dajie ([id number]) (Work pain in face, Phone: maxillary region, Pt ) informed to use decongestant, RX given to patient, sinus rinses also recommended. Call if symptoms do not show improvement.Bronchit is - acute case of bronchitis identified. Pt has been given antibiotics and pt has been instructed to call if symptoms are not improved, or if symptoms acutely worsen.Sacroiliitis - back exercises discussed with the patient, pt to continue with anti-inflammatories. Pt is to call if the symptoms do not improve or if they worsen.Joint Injection - Pt was given post - injection instructions. The pt has been advised to use anti-inflammatories post injection today, ice to the injected site, call if redness, warmth, or increased pain occurs at the site of injection.kenalog shot in bilateral SI joints today Development of care Hypertension - well 04-01-2019 Tommy richard 65833 Tommy Flanagan MD, plan controlled - Dajie ([id number]) (Work continue with Phone: current medications, ) continue with no added salt diet. Pt has been encouraged to exercise daily.The pt has been advised to call the office if there are any acute concerns about change in blood pressure readings at home. Development of care Cellulitis, hematoma 05-02-2019 Tommy pauln [id number] Tommy Flanagan MD, plan - The patient was LLC ([id number]) (Work instructed in Phone: appropriate wound ) care. The patient was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 08/28/2014 VACCIN FOR INFLUENZA ICD-10: Z23 ICD-9: V04.81 05/20/2014 Nocturnal hypoxia ICD-9: 799.02 05/07/2014 ACUTE SINUSITIS ICD-9: 461.9 05/07/2014 EDEMA ICD-9: 782.3 05/07 Urinary tract infection ICD-9: 599.0 05/07/2014 JOINT PAIN-L/LEG ICD-9: 719.46 04/16/2014 Blood glucose elevated ICD-9: 790.29 04/14/2014 Inflamed seborrheic keratosis ICD-9: 702.1 1 01/27/2014 Bradycardia ICD-9: 427.89 01/07/2014 COUGH ICD-9: 786.2 12/26 ACUTE URI ICD-9: 465.9 0 12/26/2013 ALLERGIC RHINITIS ICD-9: 477.9 11/12/2013 Laboratory exam ordered as part of [facility] general medical examination ICD-9: V72.62 11/12/2013 Acute maxillary sinusitis ICD-9: 461.0 10/09/2013 DYSURIA ICD-9: 788.1 03/2013 GENERALIZED ANXIETY DISEASE ICD-9: 300.02 03/31/2013 History of UTI ICD-9: V13.02 03/21/2013 UNSPECIFIED ASTHMA ICD-9: 493.90 11/21/2012 URINARY FREQUENCY ICD-9: 788.41 09/30/2012 Urge incontinence ICD-9: 788.31 09/30/2012 CELLULITIS OF LEG ICD-9: 682.6 08/05/2012 Constipation ICD-9: 564.00 07/15/2012 Subungual contusion of toenail ICD-9: 924. 3 05/27/2012 BENIGN ERLINDA SKIN ARM ICD-9: 216.6 05/03/2012 BENIGN ERLINDA SKIN TRUNK ICD-9: 216.5 05/03/2012 VACCIN FOR INFLUENZA ICD-9: V04.81 05/03/2012 Skin moles ICD-9: 216.9 04/23/2012 OA (osteoarthritis) of knee ICD-9: 715.96 03/25/2012 Abdominal bloating ICD-9: 787.3 03/12/2012 Breast pain, left ICD-9: 611.71 01/12/2012 DEPRESSIVE DISORDER NEC ICD-9: 311 12/25/2011 ANXIETY STATE ICD-9: 300.00 12/25/2011 LUMBAGO ICD-9: 724.2 11/2011 Lesion of labia ICD-9: 624.8 08/09/2011 ESOPHAGEAL REFLUX ICD-9: 530.81 05/04/2011 Chief Complaint Reason For Visit Effective Dates Notes hypertension 05/29/2018 Annual Medicare Wellness Exam 04/25/2018 cerumen 02/06/2018 hypertension 01/23/2018 cough 09/26/2017 hypertension 09/12/2017 cough 08/31/2017 ongoing cough 08/09/2017 hypertension 05/07/2017 Annual Medicare Wellness Exam 04/12/2017 cough 02/05/2017 continu es urinary frequency 02/02/2017 cough 01/15/2017 hypertension 01/04/2017 [...] hemorrhoid suppository and it helped cough 04/19/2011 Reason For Visit Effective Dates Notes hypertension 09/03/2018 hypertension 05/29/2018 Annual Medicare Wellness Exam 04/25/2018 cerumen 02/06/2018 hypertension 01/23/2018 cough 09/26/2017 hypertension 09/12/2017 cough 08/31/2017 ongoing cough 08/09/2017 hypertension 05/07/2017 Annual Medicare Wellness Exam 04/12/2017 cough 02/05/2017 continu es urinary frequency 02/02/2017 cough 01/15/2017 hypertension 01/04/2017 [...] hemorrhoid suppository and it helped cough 04/19/2011 Reason For Visit Effective Dates Notes urinary frequency 02/02/2017 cough 01/15/2017 hypertension 01/04/2017 [...] hemorrhoid suppository and it helped cough 04/19/2011 Reason For Visit Effective Dates Notes cough 02/05/2017 continu es urinary frequency 02/02/2017 cough 01/15/2017 hypertension 01/04/2017 [...] hemorrhoid suppository and it helped cough 04/19/2011 Reason For Visit Effective Dates Notes cough 03/11/2019 hypertension 09/03/2018 hypertension 05/29/2018 Annual Medicare Wellness Exam 04/25/2018 cerumen 02/06/2018 hypertension 01/23/2018 cough 09/26/2017 hypertension 09/12/2017 cough 08/31/2017 ongoing cough 08/09/2017 hypertension 05/07/2017 Annual Medicare Wellness Exam 04/12/2017 cough 02/05/2017 continu es urinary frequency 02/02/2017 cough 01/15/2017 hypertension 01/04/2017 [...] hemorrhoid suppository and it helped cough 04/19/2011 Reason For Visit Effective Dates Notes cough 04/01/2019 cough 03/11/2019 hypertension 09/03/2018 hypertension 05/29/2018 Annual Medicare Wellness Exam 04/25/2018 cerumen 02/06/2018 hypertension 01/23/2018 cough 09/26/2017 hypertension 09/12/2017 cough 08/31/2017 ongoing cough 08/09/2017 hypertension 05/07/2017 Annual Medicare Wellness Exam 04/12/2017 cough 02/05/2017 continu es urinary frequency 02/02/2017 cough 01/15/2017 hypertension 01/04/2017 [...] hemorrhoid suppository and it helped cough 04/19/2011 Reason For Visit Effective Dates Notes ecchymosis 05/02/2019 cough 04/01/2019 cough 03/11/2019 hypertension 09/03/2018 hypertension 05/29/2018 Annual Medicare Wellness Exam 04/25/2018 cerumen 02/06/2018 hypertension 01/23/2018 cough 09/26/2017 hypertension 09/12/2017 cough 08/31/2017 ongoing cough 08/09/2017 hypertension 05/07/2017 Annual Medicare Wellness Exam 04/12/2017 cough 02/05/2017 continu es urinary frequency 02/02/2017 cough 01/15/2017 hypertension 01/04/2017 [...] hemorrhoid suppository and it helped cough 04/19/2011 Review of System System Result Effective Dates Constitutional No recent illness 05/29/2018 Constitutional No anorexia 05/29/2018 Constitutional No night sweats 05/29/2018 Constitutional No chills 05/29/2018 Constitutional No diaphoresis 05/29/2018 Constitutional No fatigue 05/29/2018 Constitutional No fever 05/29/2018 Constitutional insomnia 05/29/2018 Constitutional No malaise 05/29/2018 Eyes No eye discharge Eyes No eye erythema 10/2017 Ears/Nose/Throat/Neck No dizziness 05/29/2018 Ears/Nose/Throat/Neck No headache 05/29/2018 Ears/Nose/Throat/Neck No nasal allergies 05/29/2018 Ears/Nose/Throat/Neck No nasal discharge 05/29/2018 Ears/Nose/Throat/Neck No sore throat 05/29/2018 Ears/Nose/Throat/Neck No sinus congestion 05/29/2018 Cardiovascular No chest pain/pressure 05/29/2018 Cardiovascular No dyspnea 05/29/2018 Cardiovascular edema 10/2017 Cardiovascular exercise intolerance 05/29/2018 Cardiovascular fatigue 1 Cardiovascular hypertension 05/29/2018 Respiratory No productive sputum 05/29/2018 Respiratory No chest congestion 05/29/2018 Respiratory No cough 10/2017 Respiratory dyspnea on exertion 05/29/2018 Respiratory No dyspnea 1 Gastrointestinal No abdominal pain 05/29/2018 Gastrointestinal No constipation 05/29/2018 Gastrointestinal No nausea 05/29/2018 Gastrointestinal No vomiting 05/29/2018 Genitourinary/Nephrology No dysuria 05/29/2018 Musculoskeletal No stiffness 05/29/2018 Musculoskeletal No swelling 05/29/2018 Musculoskeletal joint complaint 05/29/2018 Musculoskeletal No muscle weakness 05/29/2018 Musculoskeletal No myalgias 05/29/2018 Dermatologic No rash 10/2017 Dermatologic No scar 10/2017 Neurologic No dizziness 05/29/2018 Neurologic No headache 1 Neurologic No neck pain 05/29/2018 Neurologic No syncope Psychiatric anxiety 10/2017 Psychiatric depression 1 Musculoskeletal back pain 05/29/2018 Gastrointestinal No diarrhea 05/29/2018 Constitutional No recent illness 04/25/2018 Constitutional No anorexia 04/25/2018 Constitutional No night sweats 04/25/2018 Constitutional No chills 04/25/2018 Constitutional No diaphoresis 04/25/2018 Constitutional No fatigue 04/25/2018 Constitutional No fever 04/25/2018 Constitutional No malaise 04/25/2018 Eyes No eye discharge Eyes No eye erythema Ears/Nose/Throat/Neck No dizziness 04/25/2018 Ears/Nose/Throat/Neck No headache 04/25/2018 Ears/Nose/Throat/Neck No nasal allergies 04/25/2018 Ears/Nose/Throat/Neck No nasal discharge 04/25/2018 Ears/Nose/Throat/Neck No sore throat 04/25/2018 Ears/Nose/Throat/Neck No sinus congestion 04/25/2018 Cardiovascular No chest pain/pressure 04/25/2018 Cardiovascular No dyspnea 04/25/2018 Cardiovascular edema Cardiovascular No exercise intolerance 04/25/2018 Cardiovascular No fatigue 04/25/2018 Cardiovascular hypertension 04/25/2018 Respiratory No productive sputum 04/25/2018 Respiratory No chest congestion 04/25/2018 Respiratory No cough Respiratory No dyspnea 0 04/25/2018 Gastrointestinal No abdominal pain 04/25/2018 Gastrointestinal No constipation 04/25/2018 Gastrointestinal No nausea 04/25/2018 Gastrointestinal No vomiting 04/25/2018 Genitourinary/Nephrology No dysuria 04/25/2018 Musculoskeletal No stiffness 04/25/2018 Musculoskeletal No swelling 04/25/2018 Musculoskeletal joint complaint 04/25/2018 Musculoskeletal No muscle weakness 04/25/2018 Musculoskeletal No myalgias 04/25/2018 Dermatologic No rash Dermatologic No scar Neurologic No dizziness 04/25/2018 Neurologic No headache 0 04/25/2018 Neurologic No neck pain 04/25/2018 Neurologic No syncope Psychiatric anxiety 03/29 Psychiatric depression 0 04/25/2018 Dermatologic sores 04/25 Constitutional No recent illness 02/06/2018 Constitutional No chills 02/06/2018 Constitutional No diaphoresis 02/06/2018 Constitutional No fever 02/06/2018 Eyes No eye erythema Ears/Nose/Throat/Neck No nasal discharge 02/06/2018 Ears/Nose/Throat/Neck nasal allergies 02/06/2018 Ears/Nose/Throat/Neck hearing loss 02/06/2018 Ears/Nose/Throat/Neck cerumen 02/06/2018 Cardiovascular No chest pain/pressure 02/06/2018 Respiratory No cough Neurologic No alteration of consciousness 02/06/2018 Neurologic No mental status change 02/06/2018 Constitutional No recent illness 01/23/2018 Constitutional No anorexia 01/23/2018 Constitutional No night sweats 01/23/2018 Constitutional No chills 01/23/2018 Constitutional No diaphoresis 01/23/2018 Constitutional No fatigue 01/23/2018 Constitutional No fever 01/23/2018 Constitutional insomnia 01/23/2018 Constitutional No malaise 01/23/2018 Eyes No eye discharge Eyes No eye erythema Ears/Nose/Throat/Neck No dizziness 01/23/2018 Ears/Nose/Throat/Neck No headache 01/23/2018 Ears/Nose/Throat/Neck No nasal allergies 01/23/2018 Ears/Nose/Throat/Neck No nasal discharge 01/23/2018 Ears/Nose/Throat/Neck No sore throat 01/23/2018 Ears/Nose/Throat/Neck No sinus congestion 01/23/2018 Cardiovascular No chest pain/pressure 01/23/2018 Cardiovascular No dyspnea 01/23/2018 Cardiovascular edema Cardiovascular No exercise intolerance 01/23/2018 Cardiovascular No fatigue 01/23/2018 Cardiovascular hypertension 01/23/2018 Respiratory No productive sputum 01/23/2018 Respiratory No chest congestion 01/23/2018 Respiratory No cough Respiratory dyspnea on exertion 01/23/2018 Respiratory No dyspnea 0 01/23/2018 Gastrointestinal No abdominal pain 01/23/2018 Gastrointestinal No constipation 01/23/2018 Gastrointestinal diarrhea 01/23/2018 Gastrointestinal No nausea 01/23/2018 Gastrointestinal No vomiting 01/23/2018 Genitourinary/Nephrology No dysuria 01/23/2018 Musculoskeletal No stiffness 01/23/2018 Musculoskeletal No swelling 01/23/2018 Musculoskeletal joint complaint 01/23/2018 Musculoskeletal No muscle weakness 01/23/2018 Musculoskeletal No myalgias 01/23/2018 Dermatologic No rash Dermatologic No scar Neurologic No dizziness 01/23/2018 Neurologic No headache 0 01/23/2018 Neurologic No neck pain 01/23/2018 Neurologic No syncope Psychiatric anxiety 12/27 Psychiatric depression 0 01/23/2018 Constitutional recent illness 09/26/2017 Constitutional No fatigue 09/26/2017 Psychiatric No anxiety 0 09/26/2017 Psychiatric No depression 09/26/2017 Respiratory No cough Cardiovascular fatigue 0 09/26/2017 Musculoskeletal stiffness 09/26/2017 Musculoskeletal arthralgia(s) 09/26/2017 Constitutional recent illness 09/12/2017 Constitutional No anorexia 09/12/2017 Constitutional No night sweats 09/12/2017 Constitutional No chills 09/12/2017 Constitutional No diaphoresis 09/12/2017 Constitutional No fatigue 09/12/2017 Constitutional No fever 09/12/2017 Constitutional insomnia 09/12/2017 Constitutional No malaise 09/12/2017 Eyes No eye discharge Eyes No eye erythema Ears/Nose/Throat/Neck No dizziness 09/12/2017 Ears/Nose/Throat/Neck headache 09/12/2017 Ears/Nose/Throat/Neck No nasal allergies 09/12/2017 Ears/Nose/Throat/Neck No nasal discharge 09/12/2017 Ears/Nose/Throat/Neck sore throat 09/12/2017 Ears/Nose/Throat/Neck sinus congestion 09/12/2017 Cardiovascular No chest pain/pressure 09/12/2017 Cardiovascular No dyspnea 09/12/2017 Cardiovascular edema Cardiovascular No exercise intolerance 09/12/2017 Cardiovascular No fatigue 09/12/2017 Cardiovascular hypertension 09/12/2017 Respiratory No productive sputum 09/12/2017 Respiratory No chest congestion 09/12/2017 Respiratory No cough Respiratory dyspnea on exertion 09/12/2017 Respiratory No dyspnea 0 09/12/2017 Gastrointestinal No abdominal pain 09/12/2017 Gastrointestinal No constipation 09/12/2017 Gastrointestinal No diarrhea 09/12/2017 Gastrointestinal No nausea 09/12/2017 Gastrointestinal No vomiting 09/12/2017 Genitourinary/Nephrology No dysuria 09/12/2017 Musculoskeletal stiffness 09/12/2017 Musculoskeletal No swelling 09/12/2017 Musculoskeletal joint complaint 09/12/2017 Musculoskeletal No muscle weakness 09/12/2017 Musculoskeletal No myalgias 09/12/2017 Dermatologic No rash Dermatologic No scar Neurologic No dizziness 09/12/2017 Neurologic No headache 0 09/12/2017 Neurologic No neck pain 09/12/2017 Neurologic No syncope Psychiatric anxiety 08/27 Psychiatric depression 0 09/12/2017 Ears/Nose/Throat/Neck No otalgia 09/12/2017 Neurologic No alteration of consciousness 09/12/2017 Constitutional recent illness 08/31/2017 Constitutional fatigue 0 08/31/2017 Constitutional No fever 08/31/2017 Eyes No eye discharge Eyes No eye erythema 12/2017 Ears/Nose/Throat/Neck nasal discharge 08/31/2017 Ears/Nose/Throat/Neck sinus congestion 08/31/2017 Ears/Nose/Throat/Neck sore throat 08/31/2017 Cardiovascular No chest pain/pressure 08/31/2017 Cardiovascular No dyspnea 08/31/2017 Respiratory No productive sputum 08/31/2017 Respiratory chest congestion 08/31/2017 Respiratory cough 2017 Gastrointestinal No diarrhea 08/31/2017 Gastrointestinal No nausea 08/31/2017 Gastrointestinal No vomiting 08/31/2017 Musculoskeletal No joint complaint 08/31/2017 Dermatologic No rash 12/2017 Neurologic No alteration of consciousness 08/31/2017 Constitutional No chills 08/31/2017 Constitutional No diaphoresis 08/31/2017 Ears/Nose/Throat/Neck nasal allergies 08/31/2017 Respiratory No dyspnea 0 08/31/2017 Constitutional recent illness 08/09/2017 Constitutional No anorexia 08/09/2017 Constitutional No night sweats 08/09/2017 Constitutional chills Constitutional No diaphoresis 08/09/2017 Constitutional fatigue 1 10/10/2016 Constitutional No fever 08/09/2017 Constitutional No insomnia 08/09/2017 Constitutional No weight loss 08/09/2017 Constitutional No weight gain 08/09/2017 Constitutional No malaise 08/09/2017 Eyes No eye discharge Eyes No eye erythema Ears/Nose/Throat/Neck headache 08/09/2017 Ears/Nose/Throat/Neck nasal discharge 08/09/2017 Ears/Nose/Throat/Neck No otalgia 08/09/2017 Ears/Nose/Throat/Neck sinus congestion 08/09/2017 Ears/Nose/Throat/Neck sore throat 08/09/2017 Cardiovascular No chest pain/pressure 08/09/2017 Cardiovascular No dyspnea 08/09/2017 Respiratory No productive sputum 08/09/2017 Respiratory chest congestion 08/09/2017 Respiratory cough 2016 Gastrointestinal No vomiting 08/09/2017 Gastrointestinal No nausea 08/09/2017 Gastrointestinal No diarrhea 08/09/2017 Genitourinary/Nephrology No dysuria 08/09/2017 Musculoskeletal No joint complaint 08/09/2017 Dermatologic No rash Neurologic No alteration of consciousness 08/09/2017 Constitutional No recent illness 05/07/2017 Constitutional No anorexia 05/07/2017 Constitutional No night sweats 05/07/2017 Constitutional No chills 05/07/2017 Constitutional No diaphoresis 05/07/2017 Constitutional No fatigue 05/07/2017 Constitutional No fever 05/07/2017 Constitutional insomnia 05/07/2017 Constitutional No malaise 05/07/2017 Eyes No eye discharge Eyes No eye erythema 06/2017 Ears/Nose/Throat/Neck No dizziness 05/07/2017 Ears/Nose/Throat/Neck No headache 05/07/2017 Ears/Nose/Throat/Neck No nasal allergies 05/07/2017 Ears/Nose/Throat/Neck No nasal discharge 05/07/2017 Ears/Nose/Throat/Neck No sore throat 05/07/2017 Ears/Nose/Throat/Neck No sinus congestion 05/07/2017 Cardiovascular No chest pain/pressure 05/07/2017 Cardiovascular No dyspnea 05/07/2017 Cardiovascular edema 06/2017 Cardiovascular No exercise intolerance 05/07/2017 Cardiovascular No fatigue 05/07/2017 Cardiovascular hypertension 05/07/2017 Respiratory No productive sputum 05/07/2017 Respiratory No chest congestion 05/07/2017 Respiratory No cough 06/2017 Respiratory dyspnea on exertion 05/07/2017 Respiratory No dyspnea 0 05/07/2017 Gastrointestinal No abdominal pain 05/07/2017 Gastrointestinal No constipation 05/07/2017 Gastrointestinal diarrhea 05/07/2017 Gastrointestinal No nausea 05/07/2017 Gastrointestinal No vomiting 05/07/2017 Genitourinary/Nephrology No dysuria 05/07/2017 Musculoskeletal No stiffness 05/07/2017 Musculoskeletal No swelling 05/07/2017 Musculoskeletal joint complaint 05/07/2017 Musculoskeletal No muscle weakness 05/07/2017 Musculoskeletal No myalgias 05/07/2017 Dermatologic No rash 06/2017 Dermatologic No scar 06/2017 Neurologic No dizziness 05/07/2017 Neurologic No headache 0 05/07/2017 Neurologic No neck pain 05/07/2017 Neurologic No syncope Psychiatric anxiety 04/27 Psychiatric depression 0 05/07/2017 Constitutional No recent illness 04/12/2017 Constitutional No chills 04/12/2017 Constitutional No diaphoresis 04/12/2017 Constitutional No fever 04/12/2017 Eyes No eye erythema Ears/Nose/Throat/Neck No nasal discharge 04/12/2017 Cardiovascular No chest pain/pressure 04/12/2017 Respiratory No cough Neurologic No alteration of consciousness 04/12/2017 Neurologic No mental status change 04/12/2017 Constitutional recent illness 02/05/2017 Constitutional No anorexia 02/05/2017 Constitutional No night sweats 02/05/2017 Constitutional No chills 02/05/2017 Constitutional diaphoresis 02/05/2017 Constitutional fatigue 0 02/05/2017 Constitutional No fever 02/05/2017 Constitutional No insomnia 02/05/2017 Constitutional No malaise 02/05/2017 Constitutional No weight loss 02/05/2017 Constitutional No weight gain 02/05/2017 Eyes No eye discharge Eyes No eye erythema 07/2017 Ears/Nose/Throat/Neck No dizziness 02/05/2017 Ears/Nose/Throat/Neck No headache 02/05/2017 Cardiovascular No chest pain/pressure 02/05/2017 Cardiovascular No dyspnea 02/05/2017 Cardiovascular edema 07/2017 Respiratory No productive sputum 02/05/2017 Respiratory No chest congestion 02/05/2017 Respiratory cough 2016 Gastrointestinal No abdominal pain 02/05/2017 Gastrointestinal constipation 02/05/2017 Gastrointestinal No diarrhea 02/05/2017 Gastrointestinal gastroesophageal reflux 02/05/2017 Genitourinary/Nephrology dysuria 02/05/2017 Musculoskeletal joint complaint 02/05/2017 Dermatologic No rash 07/2017 Neurologic No alteration of consciousness 02/05/2017 Psychiatric anxiety 01/25 Constitutional recent illness 02/02/2017 Constitutional No anorexia 02/02/2017 Constitutional No night sweats 02/02/2017 Constitutional No chills 02/02/2017 Constitutional diaphoresis 02/02/2017 Constitutional fatigue 0 02/02/2017 Constitutional No fever 02/02/2017 Constitutional No insomnia 02/02/2017 Constitutional No malaise 02/02/2017 Constitutional No weight loss 02/02/2017 Constitutional No weight gain 02/02/2017 Eyes No eye discharge Eyes No eye erythema 04/2017 Ears/Nose/Throat/Neck No dizziness 02/02/2017 Ears/Nose/Throat/Neck No headache 02/02/2017 Cardiovascular No chest pain/pressure 02/02/2017 Cardiovascular No dyspnea 02/02/2017 Cardiovascular edema 04/2017 Respiratory No productive sputum 02/02/2017 Respiratory No chest congestion 02/02/2017 Respiratory cough 2016 Gastrointestinal No abdominal pain 02/02/2017 Gastrointestinal constipation 02/02/2017 Gastrointestinal No diarrhea 02/02/2017 Genitourinary/Nephrology dysuria 02/02/2017 Musculoskeletal joint complaint 02/02/2017 Gastrointestinal gastroesophageal reflux 02/02/2017 Dermatologic No rash 04/2017 Neurologic No alteration of consciousness 02/02/2017 Psychiatric anxiety 06/0 04/2017 Constitutional recent illness 01/15/2017 Constitutional No anorexia 01/15/2017 Constitutional No chills 01/15/2017 Constitutional No night sweats 01/15/2017 Constitutional No fatigue 01/15/2017 Constitutional No diaphoresis 01/15/2017 Constitutional No fever 01/15/2017 Constitutional No insomnia 01/15/2017 Constitutional No weight gain 01/15/2017 Constitutional No weight loss 01/15/2017 Constitutional No malaise 01/15/2017 Eyes No eye discharge Eyes No eye erythema Ears/Nose/Throat/Neck nasal allergies 01/15/2017 Ears/Nose/Throat/Neck nasal discharge 01/15/2017 Ears/Nose/Throat/Neck sinus congestion 01/15/2017 Ears/Nose/Throat/Neck No sore throat 01/15/2017 Cardiovascular No chest pain/pressure 01/15/2017 Cardiovascular No edema 01/15/2017 Respiratory productive sputum 01/15/2017 Respiratory chest congestion 01/15/2017 Respiratory cough 2016 Gastrointestinal No abdominal pain 01/15/2017 Musculoskeletal joint complaint 01/15/2017 Dermatologic No rash Neurologic No alteration of consciousness 01/15/2017 Constitutional No recent illness 01/04/2017 Constitutional No chills 01/04/2017 Constitutional No diaphoresis 01/04/2017 Constitutional No fatigue 01/04/2017 Constitutional No fever 01/04/2017 Constitutional insomnia 01/04/2017 Constitutional No malaise 01/04/2017 Eyes No eye discharge Eyes No eye erythema 06/2017 Ears/Nose/Throat/Neck No dizziness 01/04/2017 Ears/Nose/Throat/Neck No headache 01/04/2017 Ears/Nose/Throat/Neck No nasal allergies 01/04/2017 Ears/Nose/Throat/Neck No nasal discharge 01/04/2017 Ears/Nose/Throat/Neck No sore throat 01/04/2017 Ears/Nose/Throat/Neck No sinus congestion 01/04/2017 Cardiovascular No chest pain/pressure 01/04/2017 Cardiovascular No dyspnea 01/04/2017 Cardiovascular edema 06/2017 Cardiovascular No exercise intolerance 01/04/2017 Cardiovascular No fatigue 01/04/2017 Cardiovascular hypertension 01/04/2017 Respiratory No productive sputum 01/04/2017 Respiratory No chest congestion 01/04/2017 Respiratory No cough 06/2017 Respiratory dyspnea on exertion 01/04/2017 Respiratory No dyspnea 0 01/04/2017 Gastrointestinal No abdominal pain 01/04/2017 Gastrointestinal No constipation 01/04/2017 Gastrointestinal No nausea 01/04/2017 Gastrointestinal No vomiting 01/04/2017 Genitourinary/Nephrology No dysuria 01/04/2017 Musculoskeletal No stiffness 01/04/2017 Musculoskeletal No swelling 01/04/2017 Musculoskeletal joint complaint 01/04/2017 Musculoskeletal No muscle weakness 01/04/2017 Musculoskeletal No myalgias 01/04/2017 Dermatologic No rash 06/2017 Dermatologic No scar 06/2017 Neurologic No dizziness 01/04/2017 Neurologic No headache 0 01/04/2017 Neurologic No neck pain 01/04/2017 Neurologic No syncope Psychiatric anxiety 12/25 Psychiatric depression 0 01/04/2017 Constitutional No recent illness 09/07/2016 Constitutional No chills 09/07/2016 Constitutional No diaphoresis 09/07/2016 Constitutional No fatigue 09/07/2016 Constitutional No fever 09/07/2016 Constitutional insomnia 09/07/2016 Constitutional No malaise 09/07/2016 Eyes No eye discharge Eyes No eye erythema 07/2017 Ears/Nose/Throat/Neck No dizziness 09/07/2016 Ears/Nose/Throat/Neck No headache 09/07/2016 Ears/Nose/Throat/Neck No nasal allergies 09/07/2016 Ears/Nose/Throat/Neck No nasal discharge 09/07/2016 Ears/Nose/Throat/Neck No sore throat 09/07/2016 Ears/Nose/Throat/Neck No sinus congestion 09/07/2016 Cardiovascular No chest pain/pressure 09/07/2016 Cardiovascular No dyspnea 09/07/2016 Cardiovascular edema 07/2017 Cardiovascular No exercise intolerance 09/07/2016 Cardiovascular No fatigue 09/07/2016 Cardiovascular hypertension 09/07/2016 Respiratory No productive sputum 09/07/2016 Respiratory No chest congestion 09/07/2016 Respiratory No cough 07/2017 Respiratory dyspnea on exertion 09/07/2016 Respiratory No dyspnea 0 09/07/2016 Gastrointestinal No abdominal pain 09/07/2016 Gastrointestinal No constipation 09/07/2016 Gastrointestinal No nausea 09/07/2016 Gastrointestinal No vomiting 09/07/2016 Genitourinary/Nephrology No dysuria 09/07/2016 Musculoskeletal No stiffness 09/07/2016 Musculoskeletal No swelling 09/07/2016 Musculoskeletal joint complaint 09/07/2016 Musculoskeletal No muscle weakness 09/07/2016 Musculoskeletal No myalgias 09/07/2016 Dermatologic No rash 07/2017 Dermatologic No scar 07/2017 Neurologic No dizziness 09/07/2016 Neurologic No headache 0 09/07/2016 Neurologic No neck pain 09/07/2016 Neurologic No syncope Psychiatric anxiety 08/27 Psychiatric depression 0 09/07/2016 Constitutional No recent illness 07/06/2016 Constitutional No chills 07/06/2016 Constitutional No diaphoresis 07/06/2016 Constitutional No fatigue 07/06/2016 Constitutional No fever 07/06/2016 Constitutional insomnia 07/06/2016 Constitutional No malaise 07/06/2016 Eyes No eye discharge Eyes No eye erythema 05/2016 Ears/Nose/Throat/Neck No dizziness 07/06/2016 Ears/Nose/Throat/Neck No headache 07/06/2016 Ears/Nose/Throat/Neck No nasal allergies 07/06/2016 Ears/Nose/Throat/Neck No nasal discharge 07/06/2016 Ears/Nose/Throat/Neck No sore throat 07/06/2016 Ears/Nose/Throat/Neck No sinus congestion 07/06/2016 Cardiovascular No chest pain/pressure 07/06/2016 Cardiovascular No dyspnea 07/06/2016 Cardiovascular edema 05/2016 Cardiovascular No exercise intolerance 07/06/2016 Cardiovascular No fatigue 07/06/2016 Cardiovascular hypertension 07/06/2016 Respiratory No productive sputum 07/06/2016 Respiratory No chest congestion 07/06/2016 Respiratory No cough 05/2016 Respiratory dyspnea on exertion 07/06/2016 Respiratory No dyspnea 1 09/05/2015 Gastrointestinal No abdominal pain 07/06/2016 Gastrointestinal No constipation 07/06/2016 Gastrointestinal diarrhea 07/06/2016 Gastrointestinal No nausea 07/06/2016 Gastrointestinal No vomiting 07/06/2016 Genitourinary/Nephrology No dysuria 07/06/2016 Musculoskeletal No stiffness 07/06/2016 Musculoskeletal No swelling 07/06/2016 Musculoskeletal joint complaint 07/06/2016 Musculoskeletal No muscle weakness 07/06/2016 Musculoskeletal No myalgias 07/06/2016 Dermatologic No rash 05/2016 Dermatologic No scar 05/2016 Neurologic No dizziness 07/06/2016 Neurologic No headache 1 09/05/2015 Neurologic No neck pain 07/06/2016 Neurologic No syncope Psychiatric anxiety 06/27 Psychiatric depression 1 09/05/2015 Constitutional No recent illness 06/08/2016 Constitutional No chills 06/08/2016 Constitutional No diaphoresis 06/08/2016 Constitutional No fatigue 06/08/2016 Constitutional No fever 06/08/2016 Constitutional insomnia 06/08/2016 Constitutional No malaise 06/08/2016 Eyes No eye discharge Eyes No eye erythema Ears/Nose/Throat/Neck No dizziness 06/08/2016 Ears/Nose/Throat/Neck No headache 06/08/2016 Ears/Nose/Throat/Neck No nasal allergies 06/08/2016 Ears/Nose/Throat/Neck No nasal discharge 06/08/2016 Ears/Nose/Throat/Neck No sore throat 06/08/2016 Ears/Nose/Throat/Neck No sinus congestion 06/08/2016 Cardiovascular No chest pain/pressure 06/08/2016 Cardiovascular No dyspnea 06/08/2016 Cardiovascular edema Cardiovascular No exercise intolerance 06/08/2016 Cardiovascular No fatigue 06/08/2016 Cardiovascular hypertension 06/08/2016 Respiratory No productive sputum 06/08/2016 Respiratory No chest congestion 06/08/2016 Respiratory No cough Respiratory dyspnea on exertion 06/08/2016 Respiratory No dyspnea 1 Gastrointestinal No abdominal pain 06/08/2016 Gastrointestinal No constipation 06/08/2016 Gastrointestinal diarrhea 06/08/2016 Gastrointestinal No nausea 06/08/2016 Gastrointestinal No vomiting 06/08/2016 Genitourinary/Nephrology No dysuria 06/08/2016 Musculoskeletal No stiffness 06/08/2016 Musculoskeletal No swelling 06/08/2016 Musculoskeletal joint complaint 06/08/2016 Musculoskeletal No muscle weakness 06/08/2016 Musculoskeletal No myalgias 06/08/2016 Dermatologic No rash Dermatologic No scar Neurologic No dizziness 06/08/2016 Neurologic No headache 1 Neurologic No neck pain 06/08/2016 Neurologic No syncope Psychiatric anxiety 05/27 Psychiatric depression 1 Constitutional No recent illness 04/06/2016 Constitutional No anorexia 04/06/2016 Constitutional No night sweats 04/06/2016 Constitutional No chills 04/06/2016 Constitutional No diaphoresis 04/06/2016 Constitutional No fatigue 04/06/2016 Constitutional No fever 04/06/2016 Constitutional insomnia 04/06/2016 Constitutional No malaise 04/06/2016 Constitutional No weight loss 04/06/2016 Constitutional No weight gain 04/06/2016 Eyes No eye discharge Eyes No eye erythema 06/2016 Ears/Nose/Throat/Neck No dizziness 04/06/2016 Ears/Nose/Throat/Neck No headache 04/06/2016 Ears/Nose/Throat/Neck No nasal allergies 04/06/2016 Ears/Nose/Throat/Neck No nasal discharge 04/06/2016 Ears/Nose/Throat/Neck No sinus congestion 04/06/2016 Ears/Nose/Throat/Neck No sore throat 04/06/2016 Cardiovascular No chest pain/pressure 04/06/2016 Cardiovascular No dyspnea 04/06/2016 Cardiovascular edema 06/2016 Cardiovascular No exercise intolerance 04/06/2016 Cardiovascular No fatigue 04/06/2016 Cardiovascular hypertension 04/06/2016 Respiratory No productive sputum 04/06/2016 Respiratory No chest congestion 04/06/2016 Respiratory No cough 06/2016 Respiratory dyspnea on exertion 04/06/2016 Respiratory No dyspnea 0 04/06/2016 Gastrointestinal No abdominal pain 04/06/2016 Gastrointestinal No constipation 04/06/2016 Gastrointestinal diarrhea 04/06/2016 Gastrointestinal No nausea 04/06/2016 Gastrointestinal No vomiting 04/06/2016 Genitourinary/Nephrology No dysuria 04/06/2016 Musculoskeletal No stiffness 04/06/2016 Musculoskeletal No swelling 04/06/2016 Musculoskeletal joint complaint 04/06/2016 Musculoskeletal No muscle weakness 04/06/2016 Musculoskeletal No myalgias 04/06/2016 Dermatologic No rash 06/2016 Dermatologic No scar 06/2016 Neurologic No dizziness 04/06/2016 Neurologic No headache 0 04/06/2016 Neurologic No neck pain 04/06/2016 Neurologic No syncope Psychiatric anxiety 03/27 Psychiatric depression 0 04/06/2016 Constitutional No chills 03/09/2016 Constitutional No diaphoresis 03/09/2016 Constitutional No fatigue 03/09/2016 Constitutional No fever 03/09/2016 Eyes No eye discharge Eyes No eye erythema Ears/Nose/Throat/Neck No dizziness 03/09/2016 Ears/Nose/Throat/Neck No headache 03/09/2016 Ears/Nose/Throat/Neck No nasal allergies 03/09/2016 Ears/Nose/Throat/Neck No nasal discharge 03/09/2016 Ears/Nose/Throat/Neck No sore throat 03/09/2016 Ears/Nose/Throat/Neck No sinus congestion 03/09/2016 Cardiovascular No chest pain/pressure 03/09/2016 Cardiovascular No dyspnea 03/09/2016 Cardiovascular edema Cardiovascular No exercise intolerance 03/09/2016 Cardiovascular No fatigue 03/09/2016 Cardiovascular hypertension 03/09/2016 Respiratory No productive sputum 03/09/2016 Respiratory No chest congestion 03/09/2016 Respiratory No cough Respiratory No dyspnea 0 03/09/2016 Gastrointestinal No abdominal pain 03/09/2016 Gastrointestinal No constipation 03/09/2016 Gastrointestinal diarrhea 03/09/2016 Gastrointestinal No nausea 03/09/2016 Gastrointestinal No vomiting 03/09/2016 Musculoskeletal No stiffness 03/09/2016 Musculoskeletal No swelling 03/09/2016 Musculoskeletal No muscle weakness 03/09/2016 Musculoskeletal No myalgias 03/09/2016 Dermatologic No rash Dermatologic No scar Neurologic No dizziness 03/09/2016 Neurologic No headache 0 03/09/2016 Neurologic No neck pain 03/09/2016 Neurologic No syncope Psychiatric anxiety 02/24 Psychiatric depression 0 03/09/2016 Constitutional No recent illness 03/09/2016 Constitutional No anorexia 03/09/2016 Constitutional No night sweats 03/09/2016 Constitutional insomnia 03/09/2016 Constitutional No malaise 03/09/2016 Constitutional No weight loss 03/09/2016 Constitutional No weight gain 03/09/2016 Genitourinary/Nephrology No dysuria 03/09/2016 Respiratory dyspnea on exertion 03/09/2016 Musculoskeletal joint complaint 03/09/2016 Constitutional No chills 01/18/2016 Constitutional No diaphoresis 01/18/2016 Constitutional No fatigue 01/18/2016 Constitutional No fever 01/18/2016 Eyes No eye discharge Eyes No eye erythema Ears/Nose/Throat/Neck No dizziness 01/18/2016 Ears/Nose/Throat/Neck No headache 01/18/2016 Ears/Nose/Throat/Neck No nasal allergies 01/18/2016 Ears/Nose/Throat/Neck No nasal discharge 01/18/2016 Ears/Nose/Throat/Neck No sore throat 01/18/2016 Ears/Nose/Throat/Neck No sinus congestion 01/18/2016 Cardiovascular No chest pain/pressure 01/18/2016 Cardiovascular No dyspnea 01/18/2016 Cardiovascular edema Cardiovascular No exercise intolerance 01/18/2016 Cardiovascular No fatigue 01/18/2016 Cardiovascular hypertension 01/18/2016 Respiratory No productive sputum 01/18/2016 Respiratory No chest congestion 01/18/2016 Respiratory No cough Respiratory No dyspnea 0 01/18/2016 Gastrointestinal No abdominal pain 01/18/2016 Gastrointestinal No constipation 01/18/2016 Gastrointestinal No diarrhea 01/18/2016 Gastrointestinal No nausea 01/18/2016 Gastrointestinal No vomiting 01/18/2016 Musculoskeletal No stiffness 01/18/2016 Musculoskeletal No swelling 01/18/2016 Musculoskeletal No muscle weakness 01/18/2016 Musculoskeletal No myalgias 01/18/2016 Dermatologic No rash Dermatologic No scar Neurologic No dizziness 01/18/2016 Neurologic No headache 0 01/18/2016 Neurologic No neck pain 01/18/2016 Neurologic No syncope Psychiatric anxiety 12/26 Psychiatric depression 0 01/18/2016 Constitutional No recent illness 09/09/2015 Constitutional No anorexia 09/09/2015 Constitutional No night sweats 09/09/2015 Constitutional No chills 09/09/2015 Constitutional No diaphoresis 09/09/2015 Constitutional No fatigue 09/09/2015 Constitutional No fever 09/09/2015 Constitutional No insomnia 09/09/2015 Constitutional No malaise 09/09/2015 Constitutional No weight loss 09/09/2015 Constitutional No weight gain 09/09/2015 Constitutional No obesity 09/09/2015 Respiratory dyspnea 08/27 Respiratory dyspnea on exertion 09/09/2015 Respiratory cough 2015 Respiratory No cigarette smoking 09/09/2015 Respiratory No chest tightness 09/09/2015 Respiratory No chest congestion 09/09/2015 Respiratory No snoring 0 09/09/2015 Cardiovascular No chest pain/pressure 09/09/2015 Ears/Nose/Throat/Neck No oral pain 09/09/2015 Ears/Nose/Throat/Neck No otitis media 09/09/2015 Ears/Nose/Throat/Neck No otalgia 09/09/2015 Ears/Nose/Throat/Neck nasal allergies 09/09/2015 Ears/Nose/Throat/Neck nasal discharge 09/09/2015 Ears/Nose/Throat/Neck No sore throat 09/09/2015 Ears/Nose/Throat/Neck No postnasal drip 09/09/2015 Gastrointestinal abdominal pain 09/09/2015 Gastrointestinal constipation 09/09/2015 Gastrointestinal diarrhea 09/09/2015 Genitourinary/Nephrology No dysuria 09/09/2015 Genitourinary/Nephrology No urinary incontinence 09/09/2015 Genitourinary/Nephrology No urinary frequency 09/09/2015 Genitourinary/Nephrology No urinary urgenc y 09/09/2015 Musculoskeletal joint complaint 09/09/2015 Musculoskeletal back pain 09/09/2015 Musculoskeletal myalgias 09/09/2015 Dermatologic No rash Dermatologic No sores Psychiatric anxiety 08/27 Psychiatric No depression 09/09/2015 Ears/Nose/Throat/Neck No dizziness 09/09/2015 Ears/Nose/Throat/Neck No headache 09/09/2015 Constitutional No insomnia 12/25/2014 Cardiovascular No chest pain/pressure 12/25/2014 Cardiovascular edema 08/2014 Respiratory dyspnea on exertion 12/25/2014 Respiratory No cough 08/2014 Respiratory No chest tightness 12/25/2014 Gastrointestinal No diarrhea 12/25/2014 Gastrointestinal No abdominal pain 12/25/2014 Genitourinary/Nephrology No dysuria 12/25/2014 Constitutional No recent illness 12/25/2014 Constitutional No chills 12/25/2014 Constitutional No diaphoresis 12/25/2014 Constitutional No fatigue 12/25/2014 Constitutional No fever 12/25/2014 Eyes No eye discharge Eyes No eye erythema 08/2014 Ears/Nose/Throat/Neck No dizziness 12/25/2014 Ears/Nose/Throat/Neck No headache 12/25/2014 Ears/Nose/Throat/Neck No nasal allergies 12/25/2014 Ears/Nose/Throat/Neck No nasal discharge 12/25/2014 Ears/Nose/Throat/Neck No sore throat 12/25/2014 Ears/Nose/Throat/Neck No sinus congestion 12/25/2014 Respiratory No productive sputum 12/25/2014 Respiratory No chest congestion 12/25/2014 Respiratory No dyspnea 0 12/25/2014 Gastrointestinal No constipation 12/25/2014 Gastrointestinal No nausea 12/25/2014 Gastrointestinal No vomiting 12/25/2014 Musculoskeletal No stiffness 12/25/2014 Musculoskeletal No swelling 12/25/2014 Musculoskeletal No muscle weakness 12/25/2014 Musculoskeletal No myalgias 12/25/2014 Psychiatric anxiety 05/0 08/2014 Psychiatric depression 0 12/25/2014 Constitutional No chills 10/13/2014 Constitutional No diaphoresis 10/13/2014 Constitutional No fatigue 10/13/2014 Constitutional No fever 10/13/2014 Eyes No eye discharge Eyes No eye erythema Ears/Nose/Throat/Neck No dizziness 10/13/2014 Ears/Nose/Throat/Neck No headache 10/13/2014 Ears/Nose/Throat/Neck No nasal allergies 10/13/2014 Ears/Nose/Throat/Neck No nasal discharge 10/13/2014 Ears/Nose/Throat/Neck No sore throat 10/13/2014 Ears/Nose/Throat/Neck No sinus congestion 10/13/2014 Respiratory No productive sputum 10/13/2014 Respiratory No chest congestion 10/13/2014 Respiratory No cough Respiratory No dyspnea 0 10/13/2014 Gastrointestinal No abdominal pain 10/13/2014 Gastrointestinal No constipation 10/13/2014 Gastrointestinal No diarrhea 10/13/2014 Gastrointestinal No nausea 10/13/2014 Gastrointestinal No vomiting 10/13/2014 Musculoskeletal No stiffness 10/13/2014 Musculoskeletal No swelling 10/13/2014 Musculoskeletal No muscle weakness 10/13/2014 Musculoskeletal No myalgias 10/13/2014 Psychiatric anxiety 09/27 Psychiatric depression 0 10/13/2014 Dermatologic No rash Dermatologic No scar Neurologic No dizziness 10/13/2014 Neurologic No headache 0 10/13/2014 Neurologic No neck pain 10/13/2014 Neurologic No syncope Cardiovascular No chest pain/pressure 10/13/2014 Cardiovascular No dyspnea 10/13/2014 Cardiovascular edema Cardiovascular No exercise intolerance 10/13/2014 Cardiovascular No fatigue 10/13/2014 Cardiovascular hypertension 10/13/2014 Constitutional No chills 08/28/2014 Constitutional No diaphoresis 08/28/2014 Constitutional No fatigue 08/28/2014 Constitutional No fever 08/28/2014 Eyes No eye discharge Eyes No eye erythema 09/2014 Ears/Nose/Throat/Neck No dizziness 08/28/2014 Ears/Nose/Throat/Neck No headache 08/28/2014 Ears/Nose/Throat/Neck No nasal allergies 08/28/2014 Ears/Nose/Throat/Neck No nasal discharge 08/28/2014 Ears/Nose/Throat/Neck No sore throat 08/28/2014 Ears/Nose/Throat/Neck No sinus congestion 08/28/2014 Respiratory No productive sputum 08/28/2014 Respiratory No chest congestion 08/28/2014 Respiratory No cough 09/2014 Respiratory No dyspnea 0 08/28/2014 Gastrointestinal No abdominal pain 08/28/2014 Gastrointestinal No constipation 08/28/2014 Gastrointestinal No diarrhea 08/28/2014 Gastrointestinal No nausea 08/28/2014 Gastrointestinal No vomiting 08/28/2014 Musculoskeletal No stiffness 08/28/2014 Musculoskeletal No swelling 08/28/2014 Musculoskeletal No muscle weakness 08/28/2014 Musculoskeletal No myalgias 08/28/2014 Psychiatric anxiety 09/2014 Psychiatric depression 0 08/28/2014 Constitutional No recent illness 08/28/2014 Constitutional recent illness 05/07/2014 Constitutional No anorexia 05/07/2014 Constitutional fatigue 0 05/07/2014 Constitutional No fever 05/07/2014 Constitutional No insomnia 05/07/2014 Constitutional chills Constitutional No diaphoresis 05/07/2014 Constitutional No night sweats 05/07/2014 Eyes No eye discharge Eyes No eye erythema 06/2014 Ears/Nose/Throat/Neck nasal allergies 05/07/2014 Ears/Nose/Throat/Neck nasal discharge 05/07/2014 Ears/Nose/Throat/Neck otalgia 05/07/2014 Ears/Nose/Throat/Neck sore throat 05/07/2014 Ears/Nose/Throat/Neck sinus congestion 05/07/2014 Ears/Nose/Throat/Neck No dizziness 05/07/2014 Ears/Nose/Throat/Neck No headache 05/07/2014 Cardiovascular No chest pain/pressure 05/07/2014 Cardiovascular edema 06/2014 Cardiovascular fatigue 0 05/07/2014 Gastrointestinal No abdominal pain 05/07/2014 Gastrointestinal No constipation 05/07/2014 Gastrointestinal No diarrhea 05/07/2014 Gastrointestinal No vomiting 05/07/2014 Gastrointestinal No nausea 05/07/2014 Genitourinary/Nephrology No dysuria 05/07/2014 Genitourinary/Nephrology urinary urgency 05/07/2014 Genitourinary/Nephrology urinary frequency 05/07/2014 Dermatologic No rash 06/2014 Neurologic No alteration of consciousness 05/07/2014 Psychiatric No depression 05/07/2014 Constitutional No chills 04/16/2014 Constitutional No diaphoresis 04/16/2014 Constitutional No fatigue 04/16/2014 Constitutional No fever 04/16/2014 Eyes No eye discharge Eyes No eye erythema Ears/Nose/Throat/Neck No dizziness 04/16/2014 Ears/Nose/Throat/Neck No headache 04/16/2014 Ears/Nose/Throat/Neck No nasal allergies 04/16/2014 Ears/Nose/Throat/Neck No nasal discharge 04/16/2014 Ears/Nose/Throat/Neck No sore throat 04/16/2014 Ears/Nose/Throat/Neck No sinus congestion 04/16/2014 Respiratory No productive sputum 04/16/2014 Respiratory No chest congestion 04/16/2014 Respiratory No cough Respiratory No dyspnea 0 04/16/2014 Gastrointestinal No abdominal pain 04/16/2014 Gastrointestinal No constipation 04/16/2014 Gastrointestinal No diarrhea 04/16/2014 Gastrointestinal No nausea 04/16/2014 Gastrointestinal No vomiting 04/16/2014 Musculoskeletal No stiffness 04/16/2014 Musculoskeletal No swelling 04/16/2014 Musculoskeletal No muscle weakness 04/16/2014 Musculoskeletal No myalgias 04/16/2014 Psychiatric anxiety 03/28 Psychiatric depression 0 04/16/2014 Constitutional No recent illness 01/27/2014 Constitutional No anorexia 01/27/2014 Constitutional No night sweats 01/27/2014 Constitutional No chills 01/27/2014 Constitutional No diaphoresis 01/27/2014 Constitutional fatigue 0 01/27/2014 Constitutional No fever 01/27/2014 Constitutional No insomnia 01/27/2014 Constitutional No malaise 01/27/2014 Constitutional No weight loss 01/27/2014 Constitutional No weight gain 01/27/2014 Constitutional No chills 01/21/2014 Constitutional No diaphoresis 01/21/2014 Constitutional No fatigue 01/21/2014 Constitutional No fever 01/21/2014 Eyes No eye discharge Eyes No eye erythema Ears/Nose/Throat/Neck No dizziness 01/21/2014 Ears/Nose/Throat/Neck No headache 01/21/2014 Ears/Nose/Throat/Neck No nasal allergies 01/21/2014 Ears/Nose/Throat/Neck No nasal discharge 01/21/2014 Ears/Nose/Throat/Neck No sore throat 01/21/2014 Ears/Nose/Throat/Neck No sinus congestion 01/21/2014 Respiratory No productive sputum 01/21/2014 Respiratory No chest congestion 01/21/2014 Respiratory No cough Respiratory No dyspnea 0 01/21/2014 Gastrointestinal No abdominal pain 01/21/2014 Gastrointestinal No constipation 01/21/2014 Gastrointestinal No diarrhea 01/21/2014 Gastrointestinal No nausea 01/21/2014 Gastrointestinal No vomiting 01/21/2014 Musculoskeletal No stiffness 01/21/2014 Musculoskeletal No swelling 01/21/2014 Musculoskeletal No muscle weakness 01/21/2014 Musculoskeletal No myalgias 01/21/2014 Psychiatric anxiety 12/26 Psychiatric depression 0 01/21/2014 Constitutional No recent illness 01/07/2014 Constitutional No anorexia 01/07/2014 Constitutional No night sweats 01/07/2014 Constitutional No chills 01/07/2014 Constitutional No diaphoresis 01/07/2014 Constitutional No fatigue 01/07/2014 Constitutional No fever 01/07/2014 Constitutional No insomnia 01/07/2014 Constitutional No malaise 01/07/2014 Eyes No eye discharge Eyes No eye erythema Cardiovascular No chest pain/pressure 01/07/2014 Respiratory No cough Gastrointestinal No abdominal pain 01/07/2014 Gastrointestinal No constipation 01/07/2014 Gastrointestinal No diarrhea 01/07/2014 Genitourinary/Nephrology No dysuria 01/07/2014 Dermatologic erythema Dermatologic No rash Constitutional recent illness 12/26/2013 Constitutional No anorexia 12/26/2013 Constitutional No night sweats 12/26/2013 Constitutional No chills 12/26/2013 Constitutional No diaphoresis 12/26/2013 Constitutional fatigue 0 12/26/2013 Constitutional No fever 12/26/2013 Constitutional No insomnia 12/26/2013 Constitutional No malaise 12/26/2013 Eyes No eye discharge Eyes No eye erythema 09/2013 Cardiovascular No chest pain/pressure 12/26/2013 Gastrointestinal No abdominal pain 12/26/2013 Gastrointestinal No constipation 12/26/2013 Gastrointestinal No diarrhea 12/26/2013 Genitourinary/Nephrology No dysuria 12/26/2013 Musculoskeletal No joint complaint 12/26/2013 Dermatologic No rash 09/2013 Dermatologic No sores Constitutional No recent illness 11/12/2013 Constitutional No anorexia 11/12/2013 Constitutional No night sweats 11/12/2013 Constitutional No chills 11/12/2013 Constitutional No diaphoresis 11/12/2013 Constitutional No fatigue 11/12/2013 Constitutional No fever 11/12/2013 Constitutional No insomnia 11/12/2013 Constitutional No malaise 11/12/2013 Eyes No eye discharge Eyes No eye erythema Cardiovascular No chest pain/pressure 11/12/2013 Respiratory No cough Gastrointestinal No abdominal pain 11/12/2013 Gastrointestinal No constipation 11/12/2013 Gastrointestinal No diarrhea 11/12/2013 Genitourinary/Nephrology No dysuria 11/12/2013 Dermatologic No rash Dermatologic erythema Constitutional recent illness 10/09/2013 Constitutional No anorexia 10/09/2013 Constitutional No night sweats 10/09/2013 Constitutional No chills 10/09/2013 Constitutional No fatigue 10/09/2013 Constitutional No diaphoresis 10/09/2013 Constitutional No fever 10/09/2013 Constitutional No insomnia 10/09/2013 Eyes No eye discharge Eyes No eye erythema Cardiovascular No chest pain/pressure 10/09/2013 Respiratory No productive sputum 10/09/2013 Respiratory No chest congestion 10/09/2013 Respiratory No cough Gastrointestinal No abdominal pain 10/09/2013 Gastrointestinal No constipation 10/09/2013 Gastrointestinal No diarrhea 10/09/2013 Gastrointestinal No vomiting 10/09/2013 Gastrointestinal No odynophagia 10/09/2013 Genitourinary/Nephrology No dysuria 10/09/2013 Dermatologic No rash Dermatologic No sores Constitutional No chills 04/03/2013 Constitutional No diaphoresis 04/03/2013 Constitutional No fatigue 04/03/2013 Constitutional No fever 04/03/2013 Eyes No eye discharge Eyes No eye erythema 03/2013 Ears/Nose/Throat/Neck No dizziness 04/03/2013 Ears/Nose/Throat/Neck No headache 04/03/2013 Ears/Nose/Throat/Neck No nasal allergies 04/03/2013 Ears/Nose/Throat/Neck No nasal discharge 04/03/2013 Ears/Nose/Throat/Neck No sore throat 04/03/2013 Ears/Nose/Throat/Neck No sinus congestion 04/03/2013 Respiratory No productive sputum 04/03/2013 Respiratory No chest congestion 04/03/2013 Respiratory No cough 03/2013 Respiratory No dyspnea 0 04/03/2013 Gastrointestinal No abdominal pain 04/03/2013 Gastrointestinal No constipation 04/03/2013 Gastrointestinal No diarrhea 04/03/2013 Gastrointestinal No nausea 04/03/2013 Gastrointestinal No vomiting 04/03/2013 Musculoskeletal No stiffness 04/03/2013 Musculoskeletal No swelling 04/03/2013 Musculoskeletal No muscle weakness 04/03/2013 Musculoskeletal No myalgias 04/03/2013 Psychiatric anxiety 08/03/2013 Psychiatric depression 0 04/03/2013 Constitutional No chills 01/06/2013 Constitutional No diaphoresis 01/06/2013 Constitutional No fatigue 01/06/2013 Constitutional No fever 01/06/2013 Eyes No eye discharge Eyes No eye erythema Ears/Nose/Throat/Neck No dizziness 01/06/2013 Ears/Nose/Throat/Neck No headache 01/06/2013 Ears/Nose/Throat/Neck No nasal allergies 01/06/2013 Ears/Nose/Throat/Neck No nasal discharge 01/06/2013 Ears/Nose/Throat/Neck No sore throat 01/06/2013 Ears/Nose/Throat/Neck No sinus congestion 01/06/2013 Respiratory No productive sputum 01/06/2013 Respiratory No chest congestion 01/06/2013 Respiratory No cough Respiratory No dyspnea 0 01/06/2013 Gastrointestinal No abdominal pain 01/06/2013 Gastrointestinal No constipation 01/06/2013 Gastrointestinal No diarrhea 01/06/2013 Gastrointestinal No nausea 01/06/2013 Gastrointestinal No vomiting 01/06/2013 Musculoskeletal No stiffness 01/06/2013 Musculoskeletal No swelling 01/06/2013 Musculoskeletal No muscle weakness 01/06/2013 Musculoskeletal No myalgias 01/06/2013 Psychiatric anxiety 0510/2012 Psychiatric depression 0 01/06/2013 Constitutional No recent illness 11/21/2012 Constitutional No anorexia 11/21/2012 Constitutional No night sweats 11/21/2012 Constitutional No fatigue 11/21/2012 Constitutional No chills 11/21/2012 Constitutional No diaphoresis 11/21/2012 Constitutional No fever 11/21/2012 Constitutional No insomnia 11/21/2012 Constitutional No malaise 11/21/2012 Eyes No eye discharge Eyes No eye erythema Ears/Nose/Throat/Neck No dizziness 11/21/2012 Ears/Nose/Throat/Neck hoarseness 11/21/2012 Ears/Nose/Throat/Neck No nasal discharge 11/21/2012 Ears/Nose/Throat/Neck No sore throat 11/21/2012 Ears/Nose/Throat/Neck No sinus congestion 11/21/2012 Cardiovascular No chest pain/pressure 11/21/2012 Gastrointestinal No abdominal pain 11/21/2012 Gastrointestinal No constipation 11/21/2012 Gastrointestinal No diarrhea 11/21/2012 Gastrointestinal No nausea 11/21/2012 Gastrointestinal No vomiting 11/21/2012 Genitourinary/Nephrology No dysuria 11/21/2012 Dermatologic No rash Dermatologic No sores Musculoskeletal No myalgias 10/28/2012 Psychiatric anxiety 03/0 11/2012 Psychiatric depression 0 10/28/2012 Constitutional No chills 10/28/2012 Constitutional No diaphoresis 10/28/2012 Constitutional No fatigue 10/28/2012 Constitutional No fever 10/28/2012 Eyes No eye discharge Eyes No eye erythema 11/2012 Ears/Nose/Throat/Neck No dizziness 10/28/2012 Ears/Nose/Throat/Neck No headache 10/28/2012 Ears/Nose/Throat/Neck No nasal allergies 10/28/2012 Ears/Nose/Throat/Neck No nasal discharge 10/28/2012 Ears/Nose/Throat/Neck No sore throat 10/28/2012 Ears/Nose/Throat/Neck No sinus congestion 10/28/2012 Respiratory No productive sputum 10/28/2012 Respiratory No chest congestion 10/28/2012 Respiratory No cough 11/2012 Respiratory No dyspnea 0 10/28/2012 Gastrointestinal No abdominal pain 10/28/2012 Gastrointestinal No constipation 10/28/2012 Gastrointestinal No diarrhea 10/28/2012 Gastrointestinal No nausea 10/28/2012 Gastrointestinal No vomiting 10/28/2012 Musculoskeletal No stiffness 10/28/2012 Musculoskeletal No swelling 10/28/2012 Musculoskeletal No muscle weakness 10/28/2012 Constitutional No chills 09/30/2012 Constitutional No diaphoresis 09/30/2012 Constitutional No fatigue 09/30/2012 Constitutional No fever 09/30/2012 Eyes No eye discharge Eyes No eye erythema 11/2012 Ears/Nose/Throat/Neck No dizziness 09/30/2012 Ears/Nose/Throat/Neck No headache 09/30/2012 Ears/Nose/Throat/Neck No nasal allergies 09/30/2012 Ears/Nose/Throat/Neck No nasal discharge 09/30/2012 Ears/Nose/Throat/Neck No sore throat 09/30/2012 Ears/Nose/Throat/Neck No sinus congestion 09/30/2012 Cardiovascular No chest pain/pressure 09/30/2012 Respiratory No productive sputum 09/30/2012 Respiratory No chest congestion 09/30/2012 Respiratory No cough 11/2012 Respiratory No dyspnea 0 09/30/2012 Gastrointestinal No abdominal pain 09/30/2012 Gastrointestinal No constipation 09/30/2012 Gastrointestinal No diarrhea 09/30/2012 Gastrointestinal No nausea 09/30/2012 Gastrointestinal No vomiting 09/30/2012 Psychiatric anxiety 02/0 11/2012 Psychiatric depression 0 09/30/2012 Musculoskeletal No stiffness 09/30/2012 Musculoskeletal No swelling 09/30/2012 Musculoskeletal No muscle weakness 09/30/2012 Musculoskeletal No myalgias 09/30/2012 Constitutional No chills 08/14/2012 Constitutional No diaphoresis 08/14/2012 Constitutional No fatigue 08/14/2012 Constitutional No fever 08/14/2012 Eyes No eye discharge Eyes No eye erythema Ears/Nose/Throat/Neck No dizziness 08/14/2012 Ears/Nose/Throat/Neck No headache 08/14/2012 Ears/Nose/Throat/Neck No nasal allergies 08/14/2012 Ears/Nose/Throat/Neck No nasal discharge 08/14/2012 Ears/Nose/Throat/Neck No sore throat 08/14/2012 Ears/Nose/Throat/Neck No sinus congestion 08/14/2012 Cardiovascular No chest pain/pressure 08/14/2012 Respiratory No productive sputum 08/14/2012 Respiratory No chest congestion 08/14/2012 Respiratory No cough Respiratory No dyspnea 1 10/15/2011 Gastrointestinal No abdominal pain 08/14/2012 Gastrointestinal No constipation 08/14/2012 Gastrointestinal No diarrhea 08/14/2012 Gastrointestinal No nausea 08/14/2012 Gastrointestinal No vomiting 08/14/2012 Psychiatric anxiety 07/27 Psychiatric depression 1 10/15/2011 Constitutional No chills 08/05/2012 Constitutional No diaphoresis 08/05/2012 Constitutional No fatigue 08/05/2012 Constitutional No fever 08/05/2012 Eyes No eye discharge Eyes No eye erythema 05/2012 Ears/Nose/Throat/Neck No dizziness 08/05/2012 Ears/Nose/Throat/Neck No headache 08/05/2012 Ears/Nose/Throat/Neck No nasal allergies 08/05/2012 Ears/Nose/Throat/Neck No nasal discharge 08/05/2012 Ears/Nose/Throat/Neck No sore throat 08/05/2012 Ears/Nose/Throat/Neck No sinus congestion 08/05/2012 Cardiovascular No chest pain/pressure 08/05/2012 Respiratory No productive sputum 08/05/2012 Respiratory No chest congestion 08/05/2012 Respiratory No cough 05/2012 Respiratory No dyspnea 1 10/06/2011 Gastrointestinal No abdominal pain 08/05/2012 Gastrointestinal No constipation 08/05/2012 Gastrointestinal No diarrhea 08/05/2012 Gastrointestinal No nausea 08/05/2012 Gastrointestinal No vomiting 08/05/2012 Psychiatric anxiety 07/27 Psychiatric depression 1 10/06/2011 Constitutional No chills 07/15/2012 Constitutional No diaphoresis 07/15/2012 Constitutional No fatigue 07/15/2012 Constitutional No fever 07/15/2012 Eyes No eye discharge Eyes No eye erythema Ears/Nose/Throat/Neck No dizziness 07/15/2012 Ears/Nose/Throat/Neck No headache 07/15/2012 Ears/Nose/Throat/Neck No nasal allergies 07/15/2012 Ears/Nose/Throat/Neck No nasal discharge 07/15/2012 Ears/Nose/Throat/Neck No sinus congestion 07/15/2012 Ears/Nose/Throat/Neck No sore throat 07/15/2012 Cardiovascular No chest pain/pressure 07/15/2012 Respiratory No productive sputum 07/15/2012 Respiratory No chest congestion 07/15/2012 Respiratory No cough Respiratory No dyspnea 1 09/14/2011 Gastrointestinal No abdominal pain 07/15/2012 Gastrointestinal No constipation 07/15/2012 Gastrointestinal No diarrhea 07/15/2012 Gastrointestinal No nausea 07/15/2012 Gastrointestinal No vomiting 07/15/2012 Psychiatric anxiety 06/27 Psychiatric depression 1 09/14/2011 Constitutional No recent illness 05/27/2012 Constitutional No chills 05/27/2012 Constitutional No fatigue 05/27/2012 Constitutional No fever 05/27/2012 Constitutional No insomnia 05/27/2012 Constitutional No malaise 05/27/2012 Cardiovascular No chest pain/pressure 05/27/2012 Cardiovascular No dyspnea 05/27/2012 Cardiovascular No edema 05/27/2012 Cardiovascular No exercise intolerance 05/27/2012 Cardiovascular No fatigue 05/27/2012 Cardiovascular No near-syncope/dizziness 05/27/2012 Respiratory No chest tightness 05/27/2012 Respiratory No cigarette smoking 05/27/2012 Respiratory No cough 08/2011 Respiratory No dyspnea 1 Respiratory No pedal edema 05/27/2012 Respiratory No snoring 1 Respiratory No wheezing 05/27/2012 Constitutional No insomnia 05/03/2012 Constitutional No recent illness 05/03/2012 Constitutional No anorexia 05/03/2012 Constitutional No night sweats 05/03/2012 Constitutional No chills 05/03/2012 Constitutional No diaphoresis 05/03/2012 Constitutional No fever 05/03/2012 Constitutional No fatigue 05/03/2012 Eyes No eye discharge Eyes No eye erythema 02/2012 Ears/Nose/Throat/Neck No dizziness 05/03/2012 Ears/Nose/Throat/Neck No nasal discharge 05/03/2012 Ears/Nose/Throat/Neck No sinus congestion 05/03/2012 Ears/Nose/Throat/Neck No sore throat 05/03/2012 Cardiovascular No chest pain/pressure 05/03/2012 Cardiovascular No dyspnea 05/03/2012 Respiratory No chest congestion 05/03/2012 Respiratory No cough 02/2012 Gastrointestinal No abdominal pain 05/03/2012 Gastrointestinal No constipation 05/03/2012 Gastrointestinal No diarrhea 05/03/2012 Gastrointestinal No nausea 05/03/2012 Gastrointestinal No vomiting 05/03/2012 Musculoskeletal No joint complaint 05/03/2012 Dermatologic No rash 02/2012 Cardiovascular No near-syncope/dizziness 04/23/2012 Respiratory No chest tightness 04/23/2012 Respiratory No cigarette smoking 04/23/2012 Respiratory No cough Respiratory No dyspnea 0 04/23/2012 Respiratory No pedal edema 04/23/2012 Respiratory No snoring 0 04/23/2012 Respiratory No wheezing 04/23/2012 Psychiatric No anxiety 0 04/23/2012 Psychiatric No depression 04/23/2012 Constitutional No recent illness 04/23/2012 Constitutional No chills 04/23/2012 Constitutional No fatigue 04/23/2012 Constitutional No fever 04/23/2012 Constitutional No insomnia 04/23/2012 Constitutional No malaise 04/23/2012 Cardiovascular No chest pain/pressure 04/23/2012 Cardiovascular No dyspnea 04/23/2012 Cardiovascular edema Cardiovascular No exercise intolerance 04/23/2012 Cardiovascular No fatigue 04/23/2012 Constitutional No recent illness 03/25/2012 Constitutional No anorexia 03/25/2012 Constitutional No night sweats 03/25/2012 Constitutional No chills 03/25/2012 Constitutional No diaphoresis 03/25/2012 Constitutional No fatigue 03/25/2012 Constitutional No fever 03/25/2012 Constitutional No insomnia 03/25/2012 Constitutional No malaise 03/25/2012 Eyes No eye discharge Eyes No eye erythema Ears/Nose/Throat/Neck No dizziness 03/25/2012 Ears/Nose/Throat/Neck No headache 03/25/2012 Ears/Nose/Throat/Neck No nasal discharge 03/25/2012 Respiratory No productive sputum 03/25/2012 Respiratory No chest congestion 03/25/2012 Respiratory No cough Gastrointestinal No vomiting 03/25/2012 Gastrointestinal No nausea 03/25/2012 Gastrointestinal No constipation 03/25/2012 Gastrointestinal No diarrhea 03/25/2012 Genitourinary/Nephrology No dysuria 03/25/2012 Constitutional No recent illness 03/12/2012 Constitutional No anorexia 03/12/2012 Constitutional No night sweats 03/12/2012 Constitutional No chills 03/12/2012 Constitutional No diaphoresis 03/12/2012 Constitutional No fatigue 03/12/2012 Constitutional No fever 03/12/2012 Constitutional No insomnia 03/12/2012 Constitutional No malaise 03/12/2012 Constitutional No obesity 03/12/2012 Eyes No eye discharge Eyes No eye erythema Ears/Nose/Throat/Neck No dizziness 03/12/2012 Ears/Nose/Throat/Neck No headache 03/12/2012 Ears/Nose/Throat/Neck No nasal allergies 03/12/2012 Ears/Nose/Throat/Neck No nasal discharge 03/12/2012 Ears/Nose/Throat/Neck No otalgia 03/12/2012 Respiratory No productive sputum 03/12/2012 Respiratory No chest congestion 03/12/2012 Respiratory No cough Gastrointestinal No abdominal pain 03/12/2012 Gastrointestinal No diarrhea 03/12/2012 Gastrointestinal No constipation 03/12/2012 Gastrointestinal gas and bloating 03/12/2012 Gastrointestinal No nausea 03/12/2012 Gastrointestinal No vomiting 03/12/2012 Genitourinary/Nephrology No dysuria 03/12/2012 Dermatologic No rash Dermatologic No sores Dermatologic mole change 03/12/2012 Neurologic No alteration of consciousness 03/12/2012 Constitutional No chills 01/23/2012 Constitutional No diaphoresis 01/23/2012 Constitutional No fatigue 01/23/2012 Constitutional No fever 01/23/2012 Eyes No eye discharge Eyes No eye erythema Ears/Nose/Throat/Neck No dizziness 01/23/2012 Ears/Nose/Throat/Neck No nasal allergies 01/23/2012 Ears/Nose/Throat/Neck No nasal discharge 01/23/2012 Ears/Nose/Throat/Neck No sinus congestion 01/23/2012 Ears/Nose/Throat/Neck No sore throat 01/23/2012 Respiratory No productive sputum 01/23/2012 Respiratory No chest congestion 01/23/2012 Respiratory No cough Gastrointestinal No abdominal pain 01/23/2012 Gastrointestinal No constipation 01/23/2012 Gastrointestinal No diarrhea 01/23/2012 Gastrointestinal No nausea 01/23/2012 Gastrointestinal No vomiting 01/23/2012 Psychiatric anxiety 12/26 Psychiatric depression 0 01/23/2012 Musculoskeletal No stiffness 01/23/2012 Neurologic No dizziness 01/23/2012 Constitutional No recent illness 01/12/2012 Constitutional No anorexia 01/12/2012 Constitutional No night sweats 01/12/2012 Constitutional No chills 01/12/2012 Constitutional No diaphoresis 01/12/2012 Constitutional No fatigue 01/12/2012 Constitutional No fever 01/12/2012 Constitutional No insomnia 01/12/2012 Cardiovascular No chest pain/pressure 01/12/2012 Cardiovascular No hypertension 01/12/2012 Cardiovascular No fatigue 01/12/2012 Ears/Nose/Throat/Neck No dizziness 12/25/2011 Ears/Nose/Throat/Neck No headache 12/25/2011 Ears/Nose/Throat/Neck No sore throat 12/25/2011 Respiratory No productive sputum 12/25/2011 Respiratory No chest congestion 12/25/2011 Respiratory No dyspnea 0 12/25/2011 Psychiatric anxiety 11/27 Psychiatric depression 0 12/25/2011 Musculoskeletal No stiffness 12/25/2011 Musculoskeletal arthralgia(s) 12/25/2011 Cardiovascular dyspnea 0 12/25/2011 Cardiovascular No edema 12/25/2011 Constitutional No chills 12/25/2011 Constitutional No fever 12/25/2011 Ears/Nose/Throat/Neck No nasal discharge 12/25/2011 Ears/Nose/Throat/Neck No nasal allergies 12/25/2011 Ears/Nose/Throat/Neck No sinus congestion 12/25/2011 Cardiovascular No chest pain/pressure 12/25/2011 Respiratory No cough Gastrointestinal No abdominal pain 12/25/2011 Gastrointestinal No constipation 12/25/2011 Gastrointestinal No diarrhea 12/25/2011 Gastrointestinal No vomiting 12/25/2011 Gastrointestinal No nausea 12/25/2011 Constitutional No diaphoresis 12/25/2011 Constitutional No fatigue 12/25/2011 Eyes No eye discharge Eyes No eye erythema Eyes No vision change Cardiovascular palpitations 12/04/2011 Genitourinary/Nephrology No dysuria 12/04/2011 Neurologic No alteration of consciousness 12/04/2011 Constitutional recent illness 12/04/2011 Ears/Nose/Throat/Neck No dizziness 12/04/2011 Ears/Nose/Throat/Neck No headache 12/04/2011 Cardiovascular No chest pain/pressure 12/04/2011 Respiratory No chest congestion 12/04/2011 Respiratory No cough 04/2012 Gastrointestinal No constipation 12/04/2011 Gastrointestinal No nausea 12/04/2011 Gastrointestinal No vomiting 12/04/2011 Constitutional No chills 12/04/2011 Constitutional No diaphoresis 12/04/2011 Constitutional No fatigue 12/04/2011 Constitutional No fever 12/04/2011 Eyes No eye discharge Eyes No eye erythema 04/2012 Ears/Nose/Throat/Neck No nasal allergies 12/04/2011 Ears/Nose/Throat/Neck No nasal discharge 12/04/2011 Ears/Nose/Throat/Neck No sinus congestion 12/04/2011 Ears/Nose/Throat/Neck No sore throat 12/04/2011 Respiratory No productive sputum 12/04/2011 Respiratory No dyspnea 0 12/04/2011 Gastrointestinal No abdominal pain 12/04/2011 Gastrointestinal No diarrhea 12/04/2011 Psychiatric anxiety 04/0 04/2012 Psychiatric depression 0 12/04/2011 Ears/Nose/Throat/Neck No headache 09/20/2011 Respiratory No dyspnea 0 09/20/2011 Constitutional No chills 09/20/2011 Constitutional No fever 09/20/2011 Ears/Nose/Throat/Neck No dizziness 09/20/2011 Cardiovascular No chest pain/pressure 09/20/2011 Gastrointestinal No nausea 09/20/2011 Gastrointestinal No vomiting 09/20/2011 Constitutional recent illness 09/20/2011 Constitutional No diaphoresis 09/20/2011 Constitutional No fatigue 09/20/2011 Eyes No eye discharge Eyes No eye erythema Ears/Nose/Throat/Neck No nasal allergies 09/20/2011 Ears/Nose/Throat/Neck No nasal discharge 09/20/2011 Ears/Nose/Throat/Neck No sinus congestion 09/20/2011 Ears/Nose/Throat/Neck No sore throat 09/20/2011 Respiratory No productive sputum 09/20/2011 Respiratory No chest congestion 09/20/2011 Respiratory No cough Gastrointestinal No abdominal pain 09/20/2011 Gastrointestinal No constipation 09/20/2011 Gastrointestinal No diarrhea 09/20/2011 Psychiatric anxiety 08/28 Psychiatric depression 0 09/20/2011 Constitutional recent illness 09/06/2011 Constitutional No chills 09/06/2011 Constitutional No diaphoresis 09/06/2011 Constitutional No fatigue 09/06/2011 Constitutional No fever 09/06/2011 Eyes No eye discharge Eyes No eye erythema 06/2012 Ears/Nose/Throat/Neck No dizziness 09/06/2011 Ears/Nose/Throat/Neck No nasal allergies 09/06/2011 Ears/Nose/Throat/Neck No nasal discharge 09/06/2011 Ears/Nose/Throat/Neck No sore throat 09/06/2011 Ears/Nose/Throat/Neck No sinus congestion 09/06/2011 Cardiovascular No chest pain/pressure 09/06/2011 Respiratory No productive sputum 09/06/2011 Respiratory No cough 06/2012 Respiratory No chest congestion 09/06/2011 Gastrointestinal No abdominal pain 09/06/2011 Gastrointestinal No nausea 09/06/2011 Gastrointestinal No vomiting 09/06/2011 Gastrointestinal No constipation 09/06/2011 Gastrointestinal No diarrhea 09/06/2011 Psychiatric anxiety 08/27 Psychiatric depression 0 09/06/2011 Constitutional No night sweats 08/30/2011 Constitutional No fatigue 08/30/2011 Constitutional No fever 08/30/2011 Dermatologic No rash 11/2011 Dermatologic No sores Psychiatric No anxiety 0 08/30/2011 Psychiatric No depression 08/30/2011 Gastrointestinal abdominal pain 08/30/2011 Gastrointestinal constipation 08/30/2011 Cardiovascular hypertension 08/30/2011 Cardiovascular fatigue 0 08/30/2011 Cardiovascular No chest pain/pressure 08/30/2011 Respiratory No cough 11/2011 Respiratory No chest congestion 08/30/2011 Respiratory No chest tightness 08/30/2011 Neurologic No dizziness 08/30/2011 Neurologic No headache 0 08/30/2011 Musculoskeletal No back pain 08/30/2011 Musculoskeletal arthralgia(s) 08/30/2011 Constitutional No recent illness 08/23/2011 Constitutional chills Constitutional fatigue 1 10/24/2010 Constitutional fever Eyes No eye discharge Eyes No eye erythema Ears/Nose/Throat/Neck No dizziness 08/23/2011 Ears/Nose/Throat/Neck headache 08/23/2011 Ears/Nose/Throat/Neck No hoarseness 08/23/2011 Ears/Nose/Throat/Neck nasal discharge 08/23/2011 Ears/Nose/Throat/Neck sinus congestion 08/23/2011 Ears/Nose/Throat/Neck No sore throat 08/23/2011 Cardiovascular No chest pain/pressure 08/23/2011 Respiratory No productive sputum 08/23/2011 Respiratory No cough Respiratory No dyspnea 1 10/24/2010 Gastrointestinal No abdominal pain 08/23/2011 Gastrointestinal No nausea 08/23/2011 Gastrointestinal No vomiting 08/23/2011 Gastrointestinal No constipation 08/23/2011 Gastrointestinal No diarrhea 08/23/2011 Genitourinary/Nephrology No dysuria 08/23/2011 Genitourinary/Nephrology urinary frequency 08/23/2011 Genitourinary/Nephrology urinary urgency 08/23/2011 Dermatologic No rash Constitutional No recent illness 08/09/2011 Constitutional No chills 08/09/2011 Constitutional No diaphoresis 08/09/2011 Constitutional No fatigue 08/09/2011 Constitutional No fever 08/09/2011 Constitutional No insomnia 08/09/2011 Eyes No eye discharge Eyes No eye erythema Ears/Nose/Throat/Neck No headache 08/09/2011 Cardiovascular No chest pain/pressure 08/09/2011 Genitourinary/Nephrology No breast c omplaint 08/09/2011 Genitourinary/Nephrology No dysuria 08/09/2011 Genitourinary/Nephrology No vaginal discharge 08/09/2011 Genitourinary/Nephrology No pelvic pain 08/09/2011 Dermatologic sores 08/09 Constitutional No chills 05/04/2011 Ears/Nose/Throat/Neck facial pain 05/04/2011 Ears/Nose/Throat/Neck No dizziness 05/04/2011 Cardiovascular No chest pain/pressure 05/04/2011 Cardiovascular No palpitations 05/04/2011 Respiratory No chest congestion 05/04/2011 Respiratory No chest tightness 05/04/2011 Respiratory No cough 03/2011 Genitourinary/Nephrology No urinary urgenc y 05/04/2011 Genitourinary/Nephrology No urinary frequency 05/04/2011 Genitourinary/Nephrology No urinary incontinence 05/04/2011 Musculoskeletal No back pain 05/04/2011 Dermatologic No rash 03/2011 Dermatologic No sores Neurologic No ataxia 03/2011 Neurologic No dizziness 05/04/2011 Neurologic No pain, back 05/04/2011 Psychiatric No anxiety 0 05/04/2011 Psychiatric No depression 05/04/2011 Musculoskeletal joint complaint 05/04/2011 Respiratory No chest tightness 04/19/2011 Respiratory cough 2010 Respiratory No daytime hypersomnolence 04/19/2011 Constitutional fever Constitutional chills Constitutional fatigue 0 04/19/2011 Constitutional No insomnia 04/19/2011 Eyes No eye discharge Eyes No eye pain 011 Eyes No vision change Ears/Nose/Throat/Neck No dental pain 04/19/2011 Ears/Nose/Throat/Neck No dizziness 04/19/2011 Ears/Nose/Throat/Neck No dysphagia 04/19/2011 Ears/Nose/Throat/Neck facial pain 04/19/2011 Ears/Nose/Throat/Neck headache 04/19/2011 Ears/Nose/Throat/Neck nasal allergies 04/19/2011 Ears/Nose/Throat/Neck nasal discharge 04/19/2011 Gastrointestinal No nausea 04/19/2011 Gastrointestinal No vomiting 04/19/2011 Genitourinary/Nephrology No dysuria 04/19/2011 Genitourinary/Nephrology No hematuria 04/19/2011 Genitourinary/Nephrology No urinary urgenc y 04/19/2011 Genitourinary/Nephrology No urinary frequency 04/19/2011 Dermatologic No rash Ears/Nose/Throat/Neck No neck pain 04/19/2011 Ears/Nose/Throat/Neck No otitis media 04/19/2011 Ears/Nose/Throat/Neck postnasal drip 04/19/2011 Ears/Nose/Throat/Neck sinus congestion 04/19/2011 Ears/Nose/Throat/Neck sore throat 04/19/2011 Ears/Nose/Throat/Neck No tinnitus 04/19/2011 Cardiovascular No chest pain/pressure 04/19/2011 Cardiovascular No paroxysmal nocturn al dyspnea 04/19/2011 Cardiovascular No syncope 04/19/2011 Cardiovascular No edema 04/19/2011 Respiratory asthma 04/19 Respiratory productive sputum 04/19/2011 Respiratory chest congestion 04/19/2011 Respiratory No dyspnea on exertion 04/19/2011 Respiratory No hemoptysis 04/19/2011 Respiratory wheezing Respiratory No pedal edema 04/19/2011 Gastrointestinal gastroesophageal reflux 04/19/2011 Gastrointestinal No diarrhea 04/19/2011 Gastrointestinal No constipation 04/19/2011 Ears/Nose/Throat/Neck hoarseness 04/19/2011 System Result Effective Dates Constitutional No recent illness 09/03/2018 Constitutional No anorexia 09/03/2018 Constitutional No night sweats 09/03/2018 Constitutional No chills 09/03/2018 Constitutional No diaphoresis 09/03/2018 Constitutional No fatigue 09/03/2018 Constitutional No fever 09/03/2018 Constitutional insomnia 09/03/2018 Constitutional No malaise 09/03/2018 Eyes No eye discharge Eyes No eye erythema 03/2019 Ears/Nose/Throat/Neck No dizziness 09/03/2018 Ears/Nose/Throat/Neck No headache 09/03/2018 Ears/Nose/Throat/Neck No nasal allergies 09/03/2018 Ears/Nose/Throat/Neck No nasal discharge 09/03/2018 Ears/Nose/Throat/Neck No sore throat 09/03/2018 Ears/Nose/Throat/Neck No sinus congestion 09/03/2018 Cardiovascular No chest pain/pressure 09/03/2018 Cardiovascular No dyspnea 09/03/2018 Cardiovascular edema 03/2019 Cardiovascular No exercise intolerance 09/03/2018 Cardiovascular No fatigue 09/03/2018 Cardiovascular hypertension 09/03/2018 Respiratory No productive sputum 09/03/2018 Respiratory No chest congestion 09/03/2018 Respiratory No cough 03/2019 Respiratory dyspnea on exertion 09/03/2018 Respiratory No dyspnea 0 09/03/2018 Gastrointestinal No abdominal pain 09/03/2018 Gastrointestinal No constipation 09/03/2018 Gastrointestinal No nausea 09/03/2018 Gastrointestinal No vomiting 09/03/2018 Genitourinary/Nephrology No dysuria 09/03/2018 Musculoskeletal No stiffness 09/03/2018 Musculoskeletal No swelling 09/03/2018 Musculoskeletal joint complaint 09/03/2018 Musculoskeletal No muscle weakness 09/03/2018 Musculoskeletal No myalgias 09/03/2018 Dermatologic No rash 03/2019 Dermatologic No scar 03/2019 Neurologic No dizziness 09/03/2018 Neurologic No headache 0 09/03/2018 Neurologic No neck pain 09/03/2018 Neurologic No syncope Psychiatric anxiety 03/2019 Psychiatric depression 0 09/03/2018 Musculoskeletal back pain 09/03/2018 Constitutional No recent illness 05/29/2018 Constitutional No anorexia 05/29/2018 Constitutional No night sweats 05/29/2018 Constitutional No chills 05/29/2018 Constitutional No diaphoresis 05/29/2018 Constitutional No fatigue 05/29/2018 Constitutional No fever 05/29/2018 Constitutional insomnia 05/29/2018 Constitutional No malaise 05/29/2018 Eyes No eye discharge Eyes No eye erythema 10/2017 Ears/Nose/Throat/Neck No dizziness 05/29/2018 Ears/Nose/Throat/Neck No headache 05/29/2018 Ears/Nose/Throat/Neck No nasal allergies 05/29/2018 Ears/Nose/Throat/Neck No nasal discharge 05/29/2018 Ears/Nose/Throat/Neck No sore throat 05/29/2018 Ears/Nose/Throat/Neck No sinus congestion 05/29/2018 Cardiovascular No chest pain/pressure 05/29/2018 Cardiovascular No dyspnea 05/29/2018 Cardiovascular edema 10/2017 Cardiovascular exercise intolerance 05/29/2018 Cardiovascular fatigue 1 Cardiovascular hypertension 05/29/2018 Respiratory No productive sputum 05/29/2018 Respiratory No chest congestion 05/29/2018 Respiratory No cough 10/2017 Respiratory dyspnea on exertion 05/29/2018 Respiratory No dyspnea 1 Gastrointestinal No abdominal pain 05/29/2018 Gastrointestinal No constipation 05/29/2018 Gastrointestinal No nausea 05/29/2018 Gastrointestinal No vomiting 05/29/2018 Genitourinary/Nephrology No dysuria 05/29/2018 Musculoskeletal No stiffness 05/29/2018 Musculoskeletal No swelling 05/29/2018 Musculoskeletal joint complaint 05/29/2018 Musculoskeletal No muscle weakness 05/29/2018 Musculoskeletal No myalgias 05/29/2018 Dermatologic No rash 10/2017 Dermatologic No scar 10/2017 Neurologic No dizziness 05/29/2018 Neurologic No headache 1 Neurologic No neck pain 05/29/2018 Neurologic No syncope Psychiatric anxiety 10/2017 Psychiatric depression 1 Musculoskeletal back pain 05/29/2018 Gastrointestinal No diarrhea 05/29/2018 Constitutional No recent illness 04/25/2018 Constitutional No anorexia 04/25/2018 Constitutional No night sweats 04/25/2018 Constitutional No chills 04/25/2018 Constitutional No diaphoresis 04/25/2018 Constitutional No fatigue 04/25/2018 Constitutional No fever 04/25/2018 Constitutional No malaise 04/25/2018 Eyes No eye discharge Eyes No eye erythema Ears/Nose/Throat/Neck No dizziness 04/25/2018 Ears/Nose/Throat/Neck No headache 04/25/2018 Ears/Nose/Throat/Neck No nasal allergies 04/25/2018 Ears/Nose/Throat/Neck No nasal discharge 04/25/2018 Ears/Nose/Throat/Neck No sore throat 04/25/2018 Ears/Nose/Throat/Neck No sinus congestion 04/25/2018 Cardiovascular No chest pain/pressure 04/25/2018 Cardiovascular No dyspnea 04/25/2018 Cardiovascular edema Cardiovascular No exercise intolerance 04/25/2018 Cardiovascular No fatigue 04/25/2018 Cardiovascular hypertension 04/25/2018 Respiratory No productive sputum 04/25/2018 Respiratory No chest congestion 04/25/2018 Respiratory No cough Respiratory No dyspnea 0 04/25/2018 Gastrointestinal No abdominal pain 04/25/2018 Gastrointestinal No constipation 04/25/2018 Gastrointestinal No nausea 04/25/2018 Gastrointestinal No vomiting 04/25/2018 Genitourinary/Nephrology No dysuria 04/25/2018 Musculoskeletal No stiffness 04/25/2018 Musculoskeletal No swelling 04/25/2018 Musculoskeletal joint complaint 04/25/2018 Musculoskeletal No muscle weakness 04/25/2018 Musculoskeletal No myalgias 04/25/2018 Dermatologic No rash Dermatologic No scar Neurologic No dizziness 04/25/2018 Neurologic No headache 0 04/25/2018 Neurologic No neck pain 04/25/2018 Neurologic No syncope Psychiatric anxiety 03/29 Psychiatric depression 0 04/25/2018 Dermatologic sores 04/25 Constitutional No recent illness 02/06/2018 Constitutional No chills 02/06/2018 Constitutional No diaphoresis 02/06/2018 Constitutional No fever 02/06/2018 Eyes No eye erythema Ears/Nose/Throat/Neck No nasal discharge 02/06/2018 Ears/Nose/Throat/Neck nasal allergies 02/06/2018 Ears/Nose/Throat/Neck hearing loss 02/06/2018 Ears/Nose/Throat/Neck cerumen 02/06/2018 Cardiovascular No chest pain/pressure 02/06/2018 Respiratory No cough Neurologic No alteration of consciousness 02/06/2018 Neurologic No mental status change 02/06/2018 Constitutional No recent illness 01/23/2018 Constitutional No anorexia 01/23/2018 Constitutional No night sweats 01/23/2018 Constitutional No chills 01/23/2018 Constitutional No diaphoresis 01/23/2018 Constitutional No fatigue 01/23/2018 Constitutional No fever 01/23/2018 Constitutional insomnia 01/23/2018 Constitutional No malaise 01/23/2018 Eyes No eye discharge Eyes No eye erythema Ears/Nose/Throat/Neck No dizziness 01/23/2018 Ears/Nose/Throat/Neck No headache 01/23/2018 Ears/Nose/Throat/Neck No nasal allergies 01/23/2018 Ears/Nose/Throat/Neck No nasal discharge 01/23/2018 Ears/Nose/Throat/Neck No sore throat 01/23/2018 Ears/Nose/Throat/Neck No sinus congestion 01/23/2018 Cardiovascular No chest pain/pressure 01/23/2018 Cardiovascular No dyspnea 01/23/2018 Cardiovascular edema Cardiovascular No exercise intolerance 01/23/2018 Cardiovascular No fatigue 01/23/2018 Cardiovascular hypertension 01/23/2018 Respiratory No productive sputum 01/23/2018 Respiratory No chest congestion 01/23/2018 Respiratory No cough Respiratory dyspnea on exertion 01/23/2018 Respiratory No dyspnea 0 01/23/2018 Gastrointestinal No abdominal pain 01/23/2018 Gastrointestinal No constipation 01/23/2018 Gastrointestinal diarrhea 01/23/2018 Gastrointestinal No nausea 01/23/2018 Gastrointestinal No vomiting 01/23/2018 Genitourinary/Nephrology No dysuria 01/23/2018 Musculoskeletal No stiffness 01/23/2018 Musculoskeletal No swelling 01/23/2018 Musculoskeletal joint complaint 01/23/2018 Musculoskeletal No muscle weakness 01/23/2018 Musculoskeletal No myalgias 01/23/2018 Dermatologic No rash Dermatologic No scar Neurologic No dizziness 01/23/2018 Neurologic No headache 0 01/23/2018 Neurologic No neck pain 01/23/2018 Neurologic No syncope Psychiatric anxiety 05 Psychiatric depression 0 01/23/2018 Constitutional recent illness 09/26/2017 Constitutional No fatigue 09/26/2017 Psychiatric No anxiety 0 09/26/2017 Psychiatric No depression 09/26/2017 Respiratory No cough Cardiovascular fatigue 0 09/26/2017 Musculoskeletal stiffness 09/26/2017 Musculoskeletal arthralgia(s) 09/26/2017 Constitutional recent illness 09/12/2017 Constitutional No anorexia 09/12/2017 Constitutional No night sweats 09/12/2017 Constitutional No chills 09/12/2017 Constitutional No diaphoresis 09/12/2017 Constitutional No fatigue 09/12/2017 Constitutional No fever 09/12/2017 Constitutional insomnia 09/12/2017 Constitutional No malaise 09/12/2017 Eyes No eye discharge Eyes No eye erythema Ears/Nose/Throat/Neck No dizziness 09/12/2017 Ears/Nose/Throat/Neck headache 09/12/2017 Ears/Nose/Throat/Neck No nasal allergies 09/12/2017 Ears/Nose/Throat/Neck No nasal discharge 09/12/2017 Ears/Nose/Throat/Neck sore throat 09/12/2017 Ears/Nose/Throat/Neck sinus congestion 09/12/2017 Cardiovascular No chest pain/pressure 09/12/2017 Cardiovascular No dyspnea 09/12/2017 Cardiovascular edema Cardiovascular No exercise intolerance 09/12/2017 Cardiovascular No fatigue 09/12/2017 Cardiovascular hypertension 09/12/2017 Respiratory No productive sputum 09/12/2017 Respiratory No chest congestion 09/12/2017 Respiratory No cough Respiratory dyspnea on exertion 09/12/2017 Respiratory No dyspnea 0 09/12/2017 Gastrointestinal No abdominal pain 09/12/2017 Gastrointestinal No constipation 09/12/2017 Gastrointestinal No diarrhea 09/12/2017 Gastrointestinal No nausea 09/12/2017 Gastrointestinal No vomiting 09/12/2017 Genitourinary/Nephrology No dysuria 09/12/2017 Musculoskeletal stiffness 09/12/2017 Musculoskeletal No swelling 09/12/2017 Musculoskeletal joint complaint 09/12/2017 Musculoskeletal No muscle weakness 09/12/2017 Musculoskeletal No myalgias 09/12/2017 Dermatologic No rash Dermatologic No scar Neurologic No dizziness 09/12/2017 Neurologic No headache 0 09/12/2017 Neurologic No neck pain 09/12/2017 Neurologic No syncope Psychiatric anxiety 08/27 Psychiatric depression 0 09/12/2017 Ears/Nose/Throat/Neck No otalgia 09/12/2017 Neurologic No alteration of consciousness 09/12/2017 Constitutional recent illness 08/31/2017 Constitutional fatigue 0 08/31/2017 Constitutional No fever 08/31/2017 Eyes No eye discharge Eyes No eye erythema 12/2017 Ears/Nose/Throat/Neck nasal discharge 08/31/2017 Ears/Nose/Throat/Neck sinus congestion 08/31/2017 Ears/Nose/Throat/Neck sore throat 08/31/2017 Cardiovascular No chest pain/pressure 08/31/2017 Cardiovascular No dyspnea 08/31/2017 Respiratory No productive sputum 08/31/2017 Respiratory chest congestion 08/31/2017 Respiratory cough 2017 Gastrointestinal No diarrhea 08/31/2017 Gastrointestinal No nausea 08/31/2017 Gastrointestinal No vomiting 08/31/2017 Musculoskeletal No joint complaint 08/31/2017 Dermatologic No rash 12/2017 Neurologic No alteration of consciousness 08/31/2017 Constitutional No chills 08/31/2017 Constitutional No diaphoresis 08/31/2017 Ears/Nose/Throat/Neck nasal allergies 08/31/2017 Respiratory No dyspnea 0 08/31/2017 Constitutional recent illness 08/09/2017 Constitutional No anorexia 08/09/2017 Constitutional No night sweats 08/09/2017 Constitutional chills Constitutional No diaphoresis 08/09/2017 Constitutional fatigue 1 10/10/2016 Constitutional No fever 08/09/2017 Constitutional No insomnia 08/09/2017 Constitutional No weight loss 08/09/2017 Constitutional No weight gain 08/09/2017 Constitutional No malaise 08/09/2017 Eyes No eye discharge Eyes No eye erythema Ears/Nose/Throat/Neck headache 08/09/2017 Ears/Nose/Throat/Neck nasal discharge 08/09/2017 Ears/Nose/Throat/Neck No otalgia 08/09/2017 Ears/Nose/Throat/Neck sinus congestion 08/09/2017 Ears/Nose/Throat/Neck sore throat 08/09/2017 Cardiovascular No chest pain/pressure 08/09/2017 Cardiovascular No dyspnea 08/09/2017 Respiratory No productive sputum 08/09/2017 Respiratory chest congestion 08/09/2017 Respiratory cough 2016 Gastrointestinal No vomiting 08/09/2017 Gastrointestinal No nausea 08/09/2017 Gastrointestinal No diarrhea 08/09/2017 Genitourinary/Nephrology No dysuria 08/09/2017 Musculoskeletal No joint complaint 08/09/2017 Dermatologic No rash Neurologic No alteration of consciousness 08/09/2017 Constitutional No recent illness 05/07/2017 Constitutional No anorexia 05/07/2017 Constitutional No night sweats 05/07/2017 Constitutional No chills 05/07/2017 Constitutional No diaphoresis 05/07/2017 Constitutional No fatigue 05/07/2017 Constitutional No fever 05/07/2017 Constitutional insomnia 05/07/2017 Constitutional No malaise 05/07/2017 Eyes No eye discharge Eyes No eye erythema 06/2017 Ears/Nose/Throat/Neck No dizziness 05/07/2017 Ears/Nose/Throat/Neck No headache 05/07/2017 Ears/Nose/Throat/Neck No nasal allergies 05/07/2017 Ears/Nose/Throat/Neck No nasal discharge 05/07/2017 Ears/Nose/Throat/Neck No sore throat 05/07/2017 Ears/Nose/Throat/Neck No sinus congestion 05/07/2017 Cardiovascular No chest pain/pressure 05/07/2017 Cardiovascular No dyspnea 05/07/2017 Cardiovascular edema 06/2017 Cardiovascular No exercise intolerance 05/07/2017 Cardiovascular No fatigue 05/07/2017 Cardiovascular hypertension 05/07/2017 Respiratory No productive sputum 05/07/2017 Respiratory No chest congestion 05/07/2017 Respiratory No cough 06/2017 Respiratory dyspnea on exertion 05/07/2017 Respiratory No dyspnea 0 05/07/2017 Gastrointestinal No abdominal pain 05/07/2017 Gastrointestinal No constipation 05/07/2017 Gastrointestinal diarrhea 05/07/2017 Gastrointestinal No nausea 05/07/2017 Gastrointestinal No vomiting 05/07/2017 Genitourinary/Nephrology No dysuria 05/07/2017 Musculoskeletal No stiffness 05/07/2017 Musculoskeletal No swelling 05/07/2017 Musculoskeletal joint complaint 05/07/2017 Musculoskeletal No muscle weakness 05/07/2017 Musculoskeletal No myalgias 05/07/2017 Dermatologic No rash 06/2017 Dermatologic No scar 06/2017 Neurologic No dizziness 05/07/2017 Neurologic No headache 0 05/07/2017 Neurologic No neck pain 05/07/2017 Neurologic No syncope Psychiatric anxiety 04/27 Psychiatric depression 0 05/07/2017 Constitutional No recent illness 04/12/2017 Constitutional No chills 04/12/2017 Constitutional No diaphoresis 04/12/2017 Constitutional No fever 04/12/2017 Eyes No eye erythema Ears/Nose/Throat/Neck No nasal discharge 04/12/2017 Cardiovascular No chest pain/pressure 04/12/2017 Respiratory No cough Neurologic No alteration of consciousness 04/12/2017 Neurologic No mental status change 04/12/2017 Constitutional recent illness 02/05/2017 Constitutional No anorexia 02/05/2017 Constitutional No night sweats 02/05/2017 Constitutional No chills 02/05/2017 Constitutional diaphoresis 02/05/2017 Constitutional fatigue 0 02/05/2017 Constitutional No fever 02/05/2017 Constitutional No insomnia 02/05/2017 Constitutional No malaise 02/05/2017 Constitutional No weight loss 02/05/2017 Constitutional No weight gain 02/05/2017 Eyes No eye discharge Eyes No eye erythema 07/2017 Ears/Nose/Throat/Neck No dizziness 02/05/2017 Ears/Nose/Throat/Neck No headache 02/05/2017 Cardiovascular No chest pain/pressure 02/05/2017 Cardiovascular No dyspnea 02/05/2017 Cardiovascular edema 07/2017 Respiratory No productive sputum 02/05/2017 Respiratory No chest congestion 02/05/2017 Respiratory cough 2016 Gastrointestinal No abdominal pain 02/05/2017 Gastrointestinal constipation 02/05/2017 Gastrointestinal No diarrhea 02/05/2017 Gastrointestinal gastroesophageal reflux 02/05/2017 Genitourinary/Nephrology dysuria 02/05/2017 Musculoskeletal joint complaint 02/05/2017 Dermatologic No rash 07/2017 Neurologic No alteration of consciousness 02/05/2017 Psychiatric anxiety 01/25 Constitutional recent illness 02/02/2017 Constitutional No anorexia 02/02/2017 Constitutional No night sweats 02/02/2017 Constitutional No chills 02/02/2017 Constitutional diaphoresis 02/02/2017 Constitutional fatigue 0 02/02/2017 Constitutional No fever 02/02/2017 Constitutional No insomnia 02/02/2017 Constitutional No malaise 02/02/2017 Constitutional No weight loss 02/02/2017 Constitutional No weight gain 02/02/2017 Eyes No eye discharge Eyes No eye erythema 04/2017 Ears/Nose/Throat/Neck No dizziness 02/02/2017 Ears/Nose/Throat/Neck No headache 02/02/2017 Cardiovascular No chest pain/pressure 02/02/2017 Cardiovascular No dyspnea 02/02/2017 Cardiovascular edema 04/2017 Respiratory No productive sputum 02/02/2017 Respiratory No chest congestion 02/02/2017 Respiratory cough 2016 Gastrointestinal No abdominal pain 02/02/2017 Gastrointestinal constipation 02/02/2017 Gastrointestinal No diarrhea 02/02/2017 Genitourinary/Nephrology dysuria 02/02/2017 Musculoskeletal joint complaint 02/02/2017 Gastrointestinal gastroesophageal reflux 02/02/2017 Dermatologic No rash 04/2017 Neurologic No alteration of consciousness 02/02/2017 Psychiatric anxiety 06/0 04/2017 Constitutional recent illness 01/15/2017 Constitutional No anorexia 01/15/2017 Constitutional No chills 01/15/2017 Constitutional No night sweats 01/15/2017 Constitutional No fatigue 01/15/2017 Constitutional No diaphoresis 01/15/2017 Constitutional No fever 01/15/2017 Constitutional No insomnia 01/15/2017 Constitutional No weight gain 01/15/2017 Constitutional No weight loss 01/15/2017 Constitutional No malaise 01/15/2017 Eyes No eye discharge Eyes No eye erythema Ears/Nose/Throat/Neck nasal allergies 01/15/2017 Ears/Nose/Throat/Neck nasal discharge 01/15/2017 Ears/Nose/Throat/Neck sinus congestion 01/15/2017 Ears/Nose/Throat/Neck No sore throat 01/15/2017 Cardiovascular No chest pain/pressure 01/15/2017 Cardiovascular No edema 01/15/2017 Respiratory productive sputum 01/15/2017 Respiratory chest congestion 01/15/2017 Respiratory cough 2016 Gastrointestinal No abdominal pain 01/15/2017 Musculoskeletal joint complaint 01/15/2017 Dermatologic No rash Neurologic No alteration of consciousness 01/15/2017 Constitutional No recent illness 01/04/2017 Constitutional No chills 01/04/2017 Constitutional No diaphoresis 01/04/2017 Constitutional No fatigue 01/04/2017 Constitutional No fever 01/04/2017 Constitutional insomnia 01/04/2017 Constitutional No malaise 01/04/2017 Eyes No eye discharge Eyes No eye erythema 06/2017 Ears/Nose/Throat/Neck No dizziness 01/04/2017 Ears/Nose/Throat/Neck No headache 01/04/2017 Ears/Nose/Throat/Neck No nasal allergies 01/04/2017 Ears/Nose/Throat/Neck No nasal discharge 01/04/2017 Ears/Nose/Throat/Neck No sore throat 01/04/2017 Ears/Nose/Throat/Neck No sinus congestion 01/04/2017 Cardiovascular No chest pain/pressure 01/04/2017 Cardiovascular No dyspnea 01/04/2017 Cardiovascular edema 06/2017 Cardiovascular No exercise intolerance 01/04/2017 Cardiovascular No fatigue 01/04/2017 Cardiovascular hypertension 01/04/2017 Respiratory No productive sputum 01/04/2017 Respiratory No chest congestion 01/04/2017 Respiratory No cough 06/2017 Respiratory dyspnea on exertion 01/04/2017 Respiratory No dyspnea 0 01/04/2017 Gastrointestinal No abdominal pain 01/04/2017 Gastrointestinal No constipation 01/04/2017 Gastrointestinal No nausea 01/04/2017 Gastrointestinal No vomiting 01/04/2017 Genitourinary/Nephrology No dysuria 01/04/2017 Musculoskeletal No stiffness 01/04/2017 Musculoskeletal No swelling 01/04/2017 Musculoskeletal joint complaint 01/04/2017 Musculoskeletal No muscle weakness 01/04/2017 Musculoskeletal No myalgias 01/04/2017 Dermatologic No rash 06/2017 Dermatologic No scar 06/2017 Neurologic No dizziness 01/04/2017 Neurologic No headache 0 01/04/2017 Neurologic No neck pain 01/04/2017 Neurologic No syncope Psychiatric anxiety 12/25 Psychiatric depression 0 01/04/2017 Constitutional No recent illness 09/07/2016 Constitutional No chills 09/07/2016 Constitutional No diaphoresis 09/07/2016 Constitutional No fatigue 09/07/2016 Constitutional No fever 09/07/2016 Constitutional insomnia 09/07/2016 Constitutional No malaise 09/07/2016 Eyes No eye discharge Eyes No eye erythema 07/2017 Ears/Nose/Throat/Neck No dizziness 09/07/2016 Ears/Nose/Throat/Neck No headache 09/07/2016 Ears/Nose/Throat/Neck No nasal allergies 09/07/2016 Ears/Nose/Throat/Neck No nasal discharge 09/07/2016 Ears/Nose/Throat/Neck No sore throat 09/07/2016 Ears/Nose/Throat/Neck No sinus congestion 09/07/2016 Cardiovascular No chest pain/pressure 09/07/2016 Cardiovascular No dyspnea 09/07/2016 Cardiovascular edema 07/2017 Cardiovascular No exercise intolerance 09/07/2016 Cardiovascular No fatigue 09/07/2016 Cardiovascular hypertension 09/07/2016 Respiratory No productive sputum 09/07/2016 Respiratory No chest congestion 09/07/2016 Respiratory No cough 07/2017 Respiratory dyspnea on exertion 09/07/2016 Respiratory No dyspnea 0 09/07/2016 Gastrointestinal No abdominal pain 09/07/2016 Gastrointestinal No constipation 09/07/2016 Gastrointestinal No nausea 09/07/2016 Gastrointestinal No vomiting 09/07/2016 Genitourinary/Nephrology No dysuria 09/07/2016 Musculoskeletal No stiffness 09/07/2016 Musculoskeletal No swelling 09/07/2016 Musculoskeletal joint complaint 09/07/2016 Musculoskeletal No muscle weakness 09/07/2016 Musculoskeletal No myalgias 09/07/2016 Dermatologic No rash 07/2017 Dermatologic No scar 07/2017 Neurologic No dizziness 09/07/2016 Neurologic No headache 0 09/07/2016 Neurologic No neck pain 09/07/2016 Neurologic No syncope Psychiatric anxiety 08/27 Psychiatric depression 0 09/07/2016 Constitutional No recent illness 07/06/2016 Constitutional No chills 07/06/2016 Constitutional No diaphoresis 07/06/2016 Constitutional No fatigue 07/06/2016 Constitutional No fever 07/06/2016 Constitutional insomnia 07/06/2016 Constitutional No malaise 07/06/2016 Eyes No eye discharge Eyes No eye erythema 05/2016 Ears/Nose/Throat/Neck No dizziness 07/06/2016 Ears/Nose/Throat/Neck No headache 07/06/2016 Ears/Nose/Throat/Neck No nasal allergies 07/06/2016 Ears/Nose/Throat/Neck No nasal discharge 07/06/2016 Ears/Nose/Throat/Neck No sore throat 07/06/2016 Ears/Nose/Throat/Neck No sinus congestion 07/06/2016 Cardiovascular No chest pain/pressure 07/06/2016 Cardiovascular No dyspnea 07/06/2016 Cardiovascular edema 05/2016 Cardiovascular No exercise intolerance 07/06/2016 Cardiovascular No fatigue 07/06/2016 Cardiovascular hypertension 07/06/2016 Respiratory No productive sputum 07/06/2016 Respiratory No chest congestion 07/06/2016 Respiratory No cough 05/2016 Respiratory dyspnea on exertion 07/06/2016 Respiratory No dyspnea 1 09/05/2015 Gastrointestinal No abdominal pain 07/06/2016 Gastrointestinal No constipation 07/06/2016 Gastrointestinal diarrhea 07/06/2016 Gastrointestinal No nausea 07/06/2016 Gastrointestinal No vomiting 07/06/2016 Genitourinary/Nephrology No dysuria 07/06/2016 Musculoskeletal No stiffness 07/06/2016 Musculoskeletal No swelling 07/06/2016 Musculoskeletal joint complaint 07/06/2016 Musculoskeletal No muscle weakness 07/06/2016 Musculoskeletal No myalgias 07/06/2016 Dermatologic No rash 05/2016 Dermatologic No scar 05/2016 Neurologic No dizziness 07/06/2016 Neurologic No headache 1 09/05/2015 Neurologic No neck pain 07/06/2016 Neurologic No syncope Psychiatric anxiety 06/27 Psychiatric depression 1 09/05/2015 Constitutional No recent illness 06/08/2016 Constitutional No chills 06/08/2016 Constitutional No diaphoresis 06/08/2016 Constitutional No fatigue 06/08/2016 Constitutional No fever 06/08/2016 Constitutional insomnia 06/08/2016 Constitutional No malaise 06/08/2016 Eyes No eye discharge Eyes No eye erythema Ears/Nose/Throat/Neck No dizziness 06/08/2016 Ears/Nose/Throat/Neck No headache 06/08/2016 Ears/Nose/Throat/Neck No nasal allergies 06/08/2016 Ears/Nose/Throat/Neck No nasal discharge 06/08/2016 Ears/Nose/Throat/Neck No sore throat 06/08/2016 Ears/Nose/Throat/Neck No sinus congestion 06/08/2016 Cardiovascular No chest pain/pressure 06/08/2016 Cardiovascular No dyspnea 06/08/2016 Cardiovascular edema Cardiovascular No exercise intolerance 06/08/2016 Cardiovascular No fatigue 06/08/2016 Cardiovascular hypertension 06/08/2016 Respiratory No productive sputum 06/08/2016 Respiratory No chest congestion 06/08/2016 Respiratory No cough Respiratory dyspnea on exertion 06/08/2016 Respiratory No dyspnea 1 Gastrointestinal No abdominal pain 06/08/2016 Gastrointestinal No constipation 06/08/2016 Gastrointestinal diarrhea 06/08/2016 Gastrointestinal No nausea 06/08/2016 Gastrointestinal No vomiting 06/08/2016 Genitourinary/Nephrology No dysuria 06/08/2016 Musculoskeletal No stiffness 06/08/2016 Musculoskeletal No swelling 06/08/2016 Musculoskeletal joint complaint 06/08/2016 Musculoskeletal No muscle weakness 06/08/2016 Musculoskeletal No myalgias 06/08/2016 Dermatologic No rash Dermatologic No scar Neurologic No dizziness 06/08/2016 Neurologic No headache 1 Neurologic No neck pain 06/08/2016 Neurologic No syncope Psychiatric anxiety 05/27 Psychiatric depression 1 Constitutional No recent illness 04/06/2016 Constitutional No anorexia 04/06/2016 Constitutional No night sweats 04/06/2016 Constitutional No chills 04/06/2016 Constitutional No diaphoresis 04/06/2016 Constitutional No fatigue 04/06/2016 Constitutional No fever 04/06/2016 Constitutional insomnia 04/06/2016 Constitutional No malaise 04/06/2016 Constitutional No weight loss 04/06/2016 Constitutional No weight gain 04/06/2016 Eyes No eye discharge Eyes No eye erythema 06/2016 Ears/Nose/Throat/Neck No dizziness 04/06/2016 Ears/Nose/Throat/Neck No headache 04/06/2016 Ears/Nose/Throat/Neck No nasal allergies 04/06/2016 Ears/Nose/Throat/Neck No nasal discharge 04/06/2016 Ears/Nose/Throat/Neck No sinus congestion 04/06/2016 Ears/Nose/Throat/Neck No sore throat 04/06/2016 Cardiovascular No chest pain/pressure 04/06/2016 Cardiovascular No dyspnea 04/06/2016 Cardiovascular edema 06/2016 Cardiovascular No exercise intolerance 04/06/2016 Cardiovascular No fatigue 04/06/2016 Cardiovascular hypertension 04/06/2016 Respiratory No productive sputum 04/06/2016 Respiratory No chest congestion 04/06/2016 Respiratory No cough 06/2016 Respiratory dyspnea on exertion 04/06/2016 Respiratory No dyspnea 0 04/06/2016 Gastrointestinal No abdominal pain 04/06/2016 Gastrointestinal No constipation 04/06/2016 Gastrointestinal diarrhea 04/06/2016 Gastrointestinal No nausea 04/06/2016 Gastrointestinal No vomiting 04/06/2016 Genitourinary/Nephrology No dysuria 04/06/2016 Musculoskeletal No stiffness 04/06/2016 Musculoskeletal No swelling 04/06/2016 Musculoskeletal joint complaint 04/06/2016 Musculoskeletal No muscle weakness 04/06/2016 Musculoskeletal No myalgias 04/06/2016 Dermatologic No rash 06/2016 Dermatologic No scar 06/2016 Neurologic No dizziness 04/06/2016 Neurologic No headache 0 04/06/2016 Neurologic No neck pain 04/06/2016 Neurologic No syncope Psychiatric anxiety 03/27 Psychiatric depression 0 04/06/2016 Constitutional No chills 03/09/2016 Constitutional No diaphoresis 03/09/2016 Constitutional No fatigue 03/09/2016 Constitutional No fever 03/09/2016 Eyes No eye discharge Eyes No eye erythema Ears/Nose/Throat/Neck No dizziness 03/09/2016 Ears/Nose/Throat/Neck No headache 03/09/2016 Ears/Nose/Throat/Neck No nasal allergies 03/09/2016 Ears/Nose/Throat/Neck No nasal discharge 03/09/2016 Ears/Nose/Throat/Neck No sore throat 03/09/2016 Ears/Nose/Throat/Neck No sinus congestion 03/09/2016 Cardiovascular No chest pain/pressure 03/09/2016 Cardiovascular No dyspnea 03/09/2016 Cardiovascular edema Cardiovascular No exercise intolerance 03/09/2016 Cardiovascular No fatigue 03/09/2016 Cardiovascular hypertension 03/09/2016 Respiratory No productive sputum 03/09/2016 Respiratory No chest congestion 03/09/2016 Respiratory No cough Respiratory No dyspnea 0 03/09/2016 Gastrointestinal No abdominal pain 03/09/2016 Gastrointestinal No constipation 03/09/2016 Gastrointestinal diarrhea 03/09/2016 Gastrointestinal No nausea 03/09/2016 Gastrointestinal No vomiting 03/09/2016 Musculoskeletal No stiffness 03/09/2016 Musculoskeletal No swelling 03/09/2016 Musculoskeletal No muscle weakness 03/09/2016 Musculoskeletal No myalgias 03/09/2016 Dermatologic No rash Dermatologic No scar Neurologic No dizziness 03/09/2016 Neurologic No headache 0 03/09/2016 Neurologic No neck pain 03/09/2016 Neurologic No syncope Psychiatric anxiety 02/24 Psychiatric depression 0 03/09/2016 Constitutional No recent illness 03/09/2016 Constitutional No anorexia 03/09/2016 Constitutional No night sweats 03/09/2016 Constitutional insomnia 03/09/2016 Constitutional No malaise 03/09/2016 Constitutional No weight loss 03/09/2016 Constitutional No weight gain 03/09/2016 Genitourinary/Nephrology No dysuria 03/09/2016 Respiratory dyspnea on exertion 03/09/2016 Musculoskeletal joint complaint 03/09/2016 Constitutional No chills 01/18/2016 Constitutional No diaphoresis 01/18/2016 Constitutional No fatigue 01/18/2016 Constitutional No fever 01/18/2016 Eyes No eye discharge Eyes No eye erythema Ears/Nose/Throat/Neck No dizziness 01/18/2016 Ears/Nose/Throat/Neck No headache 01/18/2016 Ears/Nose/Throat/Neck No nasal allergies 01/18/2016 Ears/Nose/Throat/Neck No nasal discharge 01/18/2016 Ears/Nose/Throat/Neck No sore throat 01/18/2016 Ears/Nose/Throat/Neck No sinus congestion 01/18/2016 Cardiovascular No chest pain/pressure 01/18/2016 Cardiovascular No dyspnea 01/18/2016 Cardiovascular edema Cardiovascular No exercise intolerance 01/18/2016 Cardiovascular No fatigue 01/18/2016 Cardiovascular hypertension 01/18/2016 Respiratory No productive sputum 01/18/2016 Respiratory No chest congestion 01/18/2016 Respiratory No cough Respiratory No dyspnea 0 01/18/2016 Gastrointestinal No abdominal pain 01/18/2016 Gastrointestinal No constipation 01/18/2016 Gastrointestinal No diarrhea 01/18/2016 Gastrointestinal No nausea 01/18/2016 Gastrointestinal No vomiting 01/18/2016 Musculoskeletal No stiffness 01/18/2016 Musculoskeletal No swelling 01/18/2016 Musculoskeletal No muscle weakness 01/18/2016 Musculoskeletal No myalgias 01/18/2016 Dermatologic No rash Dermatologic No scar Neurologic No dizziness 01/18/2016 Neurologic No headache 0 01/18/2016 Neurologic No neck pain 01/18/2016 Neurologic No syncope Psychiatric anxiety 12/26 Psychiatric depression 0 01/18/2016 Constitutional No recent illness 09/09/2015 Constitutional No anorexia 09/09/2015 Constitutional No night sweats 09/09/2015 Constitutional No chills 09/09/2015 Constitutional No diaphoresis 09/09/2015 Constitutional No fatigue 09/09/2015 Constitutional No fever 09/09/2015 Constitutional No insomnia 09/09/2015 Constitutional No malaise 09/09/2015 Constitutional No weight loss 09/09/2015 Constitutional No weight gain 09/09/2015 Constitutional No obesity 09/09/2015 Respiratory dyspnea 08/27 Respiratory dyspnea on exertion 09/09/2015 Respiratory cough 2015 Respiratory No cigarette smoking 09/09/2015 Respiratory No chest tightness 09/09/2015 Respiratory No chest congestion 09/09/2015 Respiratory No snoring 0 09/09/2015 Cardiovascular No chest pain/pressure 09/09/2015 Ears/Nose/Throat/Neck No oral pain 09/09/2015 Ears/Nose/Throat/Neck No otitis media 09/09/2015 Ears/Nose/Throat/Neck No otalgia 09/09/2015 Ears/Nose/Throat/Neck nasal allergies 09/09/2015 Ears/Nose/Throat/Neck nasal discharge 09/09/2015 Ears/Nose/Throat/Neck No sore throat 09/09/2015 Ears/Nose/Throat/Neck No postnasal drip 09/09/2015 Gastrointestinal abdominal pain 09/09/2015 Gastrointestinal constipation 09/09/2015 Gastrointestinal diarrhea 09/09/2015 Genitourinary/Nephrology No dysuria 09/09/2015 Genitourinary/Nephrology No urinary incontinence 09/09/2015 Genitourinary/Nephrology No urinary frequency 09/09/2015 Genitourinary/Nephrology No urinary urgenc y 09/09/2015 Musculoskeletal joint complaint 09/09/2015 Musculoskeletal back pain 09/09/2015 Musculoskeletal myalgias 09/09/2015 Dermatologic No rash Dermatologic No sores Psychiatric anxiety 08/27 Psychiatric No depression 09/09/2015 Ears/Nose/Throat/Neck No dizziness 09/09/2015 Ears/Nose/Throat/Neck No headache 09/09/2015 Constitutional No insomnia 12/25/2014 Cardiovascular No chest pain/pressure 12/25/2014 Cardiovascular edema 08/2014 Respiratory dyspnea on exertion 12/25/2014 Respiratory No cough 08/2014 Respiratory No chest tightness 12/25/2014 Gastrointestinal No diarrhea 12/25/2014 Gastrointestinal No abdominal pain 12/25/2014 Genitourinary/Nephrology No dysuria 12/25/2014 Constitutional No recent illness 12/25/2014 Constitutional No chills 12/25/2014 Constitutional No diaphoresis 12/25/2014 Constitutional No fatigue 12/25/2014 Constitutional No fever 12/25/2014 Eyes No eye discharge Eyes No eye erythema 08/2014 Ears/Nose/Throat/Neck No dizziness 12/25/2014 Ears/Nose/Throat/Neck No headache 12/25/2014 Ears/Nose/Throat/Neck No nasal allergies 12/25/2014 Ears/Nose/Throat/Neck No nasal discharge 12/25/2014 Ears/Nose/Throat/Neck No sore throat 12/25/2014 Ears/Nose/Throat/Neck No sinus congestion 12/25/2014 Respiratory No productive sputum 12/25/2014 Respiratory No chest congestion 12/25/2014 Respiratory No dyspnea 0 12/25/2014 Gastrointestinal No constipation 12/25/2014 Gastrointestinal No nausea 12/25/2014 Gastrointestinal No vomiting 12/25/2014 Musculoskeletal No stiffness 12/25/2014 Musculoskeletal No swelling 12/25/2014 Musculoskeletal No muscle weakness 12/25/2014 Musculoskeletal No myalgias 12/25/2014 Psychiatric anxiety 05/0 08/2014 Psychiatric depression 0 12/25/2014 Constitutional No chills 10/13/2014 Constitutional No diaphoresis 10/13/2014 Constitutional No fatigue 10/13/2014 Constitutional No fever 10/13/2014 Eyes No eye discharge Eyes No eye erythema Ears/Nose/Throat/Neck No dizziness 10/13/2014 Ears/Nose/Throat/Neck No headache 10/13/2014 Ears/Nose/Throat/Neck No nasal allergies 10/13/2014 Ears/Nose/Throat/Neck No nasal discharge 10/13/2014 Ears/Nose/Throat/Neck No sore throat 10/13/2014 Ears/Nose/Throat/Neck No sinus congestion 10/13/2014 Respiratory No productive sputum 10/13/2014 Respiratory No chest congestion 10/13/2014 Respiratory No cough Respiratory No dyspnea 0 10/13/2014 Gastrointestinal No abdominal pain 10/13/2014 Gastrointestinal No constipation 10/13/2014 Gastrointestinal No diarrhea 10/13/2014 Gastrointestinal No nausea 10/13/2014 Gastrointestinal No vomiting 10/13/2014 Musculoskeletal No stiffness 10/13/2014 Musculoskeletal No swelling 10/13/2014 Musculoskeletal No muscle weakness 10/13/2014 Musculoskeletal No myalgias 10/13/2014 Psychiatric anxiety 09/27 Psychiatric depression 0 10/13/2014 Dermatologic No rash Dermatologic No scar Neurologic No dizziness 10/13/2014 Neurologic No headache 0 10/13/2014 Neurologic No neck pain 10/13/2014 Neurologic No syncope Cardiovascular No chest pain/pressure 10/13/2014 Cardiovascular No dyspnea 10/13/2014 Cardiovascular edema Cardiovascular No exercise intolerance 10/13/2014 Cardiovascular No fatigue 10/13/2014 Cardiovascular hypertension 10/13/2014 Constitutional No chills 08/28/2014 Constitutional No diaphoresis 08/28/2014 Constitutional No fatigue 08/28/2014 Constitutional No fever 08/28/2014 Eyes No eye discharge Eyes No eye erythema 09/2014 Ears/Nose/Throat/Neck No dizziness 08/28/2014 Ears/Nose/Throat/Neck No headache 08/28/2014 Ears/Nose/Throat/Neck No nasal allergies 08/28/2014 Ears/Nose/Throat/Neck No nasal discharge 08/28/2014 Ears/Nose/Throat/Neck No sore throat 08/28/2014 Ears/Nose/Throat/Neck No sinus congestion 08/28/2014 Respiratory No productive sputum 08/28/2014 Respiratory No chest congestion 08/28/2014 Respiratory No cough 09/2014 Respiratory No dyspnea 0 08/28/2014 Gastrointestinal No abdominal pain 08/28/2014 Gastrointestinal No constipation 08/28/2014 Gastrointestinal No diarrhea 08/28/2014 Gastrointestinal No nausea 08/28/2014 Gastrointestinal No vomiting 08/28/2014 Musculoskeletal No stiffness 08/28/2014 Musculoskeletal No swelling 08/28/2014 Musculoskeletal No muscle weakness 08/28/2014 Musculoskeletal No myalgias 08/28/2014 Psychiatric anxiety 0 09/2014 Psychiatric depression 0 08/28/2014 Constitutional No recent illness 08/28/2014 Constitutional recent illness 05/07/2014 Constitutional No anorexia 05/07/2014 Constitutional fatigue 0 05/07/2014 Constitutional No fever 05/07/2014 Constitutional No insomnia 05/07/2014 Constitutional chills Constitutional No diaphoresis 05/07/2014 Constitutional No night sweats 05/07/2014 Eyes No eye discharge Eyes No eye erythema 06/2014 Ears/Nose/Throat/Neck nasal allergies 05/07/2014 Ears/Nose/Throat/Neck nasal discharge 05/07/2014 Ears/Nose/Throat/Neck otalgia 05/07/2014 Ears/Nose/Throat/Neck sore throat 05/07/2014 Ears/Nose/Throat/Neck sinus congestion 05/07/2014 Ears/Nose/Throat/Neck No dizziness 05/07/2014 Ears/Nose/Throat/Neck No headache 05/07/2014 Cardiovascular No chest pain/pressure 05/07/2014 Cardiovascular edema 06/2014 Cardiovascular fatigue 0 05/07/2014 Gastrointestinal No abdominal pain 05/07/2014 Gastrointestinal No constipation 05/07/2014 Gastrointestinal No diarrhea 05/07/2014 Gastrointestinal No vomiting 05/07/2014 Gastrointestinal No nausea 05/07/2014 Genitourinary/Nephrology No dysuria 05/07/2014 Genitourinary/Nephrology urinary urgency 05/07/2014 Genitourinary/Nephrology urinary frequency 05/07/2014 Dermatologic No rash 06/2014 Neurologic No alteration of consciousness 05/07/2014 Psychiatric No depression 05/07/2014 Constitutional No chills 04/16/2014 Constitutional No diaphoresis 04/16/2014 Constitutional No fatigue 04/16/2014 Constitutional No fever 04/16/2014 Eyes No eye discharge Eyes No eye erythema Ears/Nose/Throat/Neck No dizziness 04/16/2014 Ears/Nose/Throat/Neck No headache 04/16/2014 Ears/Nose/Throat/Neck No nasal allergies 04/16/2014 Ears/Nose/Throat/Neck No nasal discharge 04/16/2014 Ears/Nose/Throat/Neck No sore throat 04/16/2014 Ears/Nose/Throat/Neck No sinus congestion 04/16/2014 Respiratory No productive sputum 04/16/2014 Respiratory No chest congestion 04/16/2014 Respiratory No cough Respiratory No dyspnea 0 04/16/2014 Gastrointestinal No abdominal pain 04/16/2014 Gastrointestinal No constipation 04/16/2014 Gastrointestinal No diarrhea 04/16/2014 Gastrointestinal No nausea 04/16/2014 Gastrointestinal No vomiting 04/16/2014 Musculoskeletal No stiffness 04/16/2014 Musculoskeletal No swelling 04/16/2014 Musculoskeletal No muscle weakness 04/16/2014 Musculoskeletal No myalgias 04/16/2014 Psychiatric anxiety 03/28 Psychiatric depression 0 04/16/2014 Constitutional No recent illness 01/27/2014 Constitutional No anorexia 01/27/2014 Constitutional No night sweats 01/27/2014 Constitutional No chills 01/27/2014 Constitutional No diaphoresis 01/27/2014 Constitutional fatigue 0 01/27/2014 Constitutional No fever 01/27/2014 Constitutional No insomnia 01/27/2014 Constitutional No malaise 01/27/2014 Constitutional No weight loss 01/27/2014 Constitutional No weight gain 01/27/2014 Constitutional No chills 01/21/2014 Constitutional No diaphoresis 01/21/2014 Constitutional No fatigue 01/21/2014 Constitutional No fever 01/21/2014 Eyes No eye discharge Eyes No eye erythema Ears/Nose/Throat/Neck No dizziness 01/21/2014 Ears/Nose/Throat/Neck No headache 01/21/2014 Ears/Nose/Throat/Neck No nasal allergies 01/21/2014 Ears/Nose/Throat/Neck No nasal discharge 01/21/2014 Ears/Nose/Throat/Neck No sore throat 01/21/2014 Ears/Nose/Throat/Neck No sinus congestion 01/21/2014 Respiratory No productive sputum 01/21/2014 Respiratory No chest congestion 01/21/2014 Respiratory No cough Respiratory No dyspnea 0 01/21/2014 Gastrointestinal No abdominal pain 01/21/2014 Gastrointestinal No constipation 01/21/2014 Gastrointestinal No diarrhea 01/21/2014 Gastrointestinal No nausea 01/21/2014 Gastrointestinal No vomiting 01/21/2014 Musculoskeletal No stiffness 01/21/2014 Musculoskeletal No swelling 01/21/2014 Musculoskeletal No muscle weakness 01/21/2014 Musculoskeletal No myalgias 01/21/2014 Psychiatric anxiety 12/26 Psychiatric depression 0 01/21/2014 Constitutional No recent illness 01/07/2014 Constitutional No anorexia 01/07/2014 Constitutional No night sweats 01/07/2014 Constitutional No chills 01/07/2014 Constitutional No diaphoresis 01/07/2014 Constitutional No fatigue 01/07/2014 Constitutional No fever 01/07/2014 Constitutional No insomnia 01/07/2014 Constitutional No malaise 01/07/2014 Eyes No eye discharge Eyes No eye erythema Cardiovascular No chest pain/pressure 01/07/2014 Respiratory No cough Gastrointestinal No abdominal pain 01/07/2014 Gastrointestinal No constipation 01/07/2014 Gastrointestinal No diarrhea 01/07/2014 Genitourinary/Nephrology No dysuria 01/07/2014 Dermatologic erythema Dermatologic No rash Constitutional recent illness 12/26/2013 Constitutional No anorexia 12/26/2013 Constitutional No night sweats 12/26/2013 Constitutional No chills 12/26/2013 Constitutional No diaphoresis 12/26/2013 Constitutional fatigue 0 12/26/2013 Constitutional No fever 12/26/2013 Constitutional No insomnia 12/26/2013 Constitutional No malaise 12/26/2013 Eyes No eye discharge Eyes No eye erythema 09/2013 Cardiovascular No chest pain/pressure 12/26/2013 Gastrointestinal No abdominal pain 12/26/2013 Gastrointestinal No constipation 12/26/2013 Gastrointestinal No diarrhea 12/26/2013 Genitourinary/Nephrology No dysuria 12/26/2013 Musculoskeletal No joint complaint 12/26/2013 Dermatologic No rash 09/2013 Dermatologic No sores Constitutional No recent illness 11/12/2013 Constitutional No anorexia 11/12/2013 Constitutional No night sweats 11/12/2013 Constitutional No chills 11/12/2013 Constitutional No diaphoresis 11/12/2013 Constitutional No fatigue 11/12/2013 Constitutional No fever 11/12/2013 Constitutional No insomnia 11/12/2013 Constitutional No malaise 11/12/2013 Eyes No eye discharge Eyes No eye erythema Cardiovascular No chest pain/pressure 11/12/2013 Respiratory No cough Gastrointestinal No abdominal pain 11/12/2013 Gastrointestinal No constipation 11/12/2013 Gastrointestinal No diarrhea 11/12/2013 Genitourinary/Nephrology No dysuria 11/12/2013 Dermatologic No rash Dermatologic erythema Constitutional recent illness 10/09/2013 Constitutional No anorexia 10/09/2013 Constitutional No night sweats 10/09/2013 Constitutional No chills 10/09/2013 Constitutional No fatigue 10/09/2013 Constitutional No diaphoresis 10/09/2013 Constitutional No fever 10/09/2013 Constitutional No insomnia 10/09/2013 Eyes No eye discharge Eyes No eye erythema Cardiovascular No chest pain/pressure 10/09/2013 Respiratory No productive sputum 10/09/2013 Respiratory No chest congestion 10/09/2013 Respiratory No cough Gastrointestinal No abdominal pain 10/09/2013 Gastrointestinal No constipation 10/09/2013 Gastrointestinal No diarrhea 10/09/2013 Gastrointestinal No vomiting 10/09/2013 Gastrointestinal No odynophagia 10/09/2013 Genitourinary/Nephrology No dysuria 10/09/2013 Dermatologic No rash Dermatologic No sores Constitutional No chills 04/03/2013 Constitutional No diaphoresis 04/03/2013 Constitutional No fatigue 04/03/2013 Constitutional No fever 04/03/2013 Eyes No eye discharge Eyes No eye erythema 03/2013 Ears/Nose/Throat/Neck No dizziness 04/03/2013 Ears/Nose/Throat/Neck No headache 04/03/2013 Ears/Nose/Throat/Neck No nasal allergies 04/03/2013 Ears/Nose/Throat/Neck No nasal discharge 04/03/2013 Ears/Nose/Throat/Neck No sore throat 04/03/2013 Ears/Nose/Throat/Neck No sinus congestion 04/03/2013 Respiratory No productive sputum 04/03/2013 Respiratory No chest congestion 04/03/2013 Respiratory No cough 03/2013 Respiratory No dyspnea 0 04/03/2013 Gastrointestinal No abdominal pain 04/03/2013 Gastrointestinal No constipation 04/03/2013 Gastrointestinal No diarrhea 04/03/2013 Gastrointestinal No nausea 04/03/2013 Gastrointestinal No vomiting 04/03/2013 Musculoskeletal No stiffness 04/03/2013 Musculoskeletal No swelling 04/03/2013 Musculoskeletal No muscle weakness 04/03/2013 Musculoskeletal No myalgias 04/03/2013 Psychiatric anxiety 0803/2013 Psychiatric depression 0 04/03/2013 Constitutional No chills 01/06/2013 Constitutional No diaphoresis 01/06/2013 Constitutional No fatigue 01/06/2013 Constitutional No fever 01/06/2013 Eyes No eye discharge Eyes No eye erythema Ears/Nose/Throat/Neck No dizziness 01/06/2013 Ears/Nose/Throat/Neck No headache 01/06/2013 Ears/Nose/Throat/Neck No nasal allergies 01/06/2013 Ears/Nose/Throat/Neck No nasal discharge 01/06/2013 Ears/Nose/Throat/Neck No sore throat 01/06/2013 Ears/Nose/Throat/Neck No sinus congestion 01/06/2013 Respiratory No productive sputum 01/06/2013 Respiratory No chest congestion 01/06/2013 Respiratory No cough Respiratory No dyspnea 0 01/06/2013 Gastrointestinal No abdominal pain 01/06/2013 Gastrointestinal No constipation 01/06/2013 Gastrointestinal No diarrhea 01/06/2013 Gastrointestinal No nausea 01/06/2013 Gastrointestinal No vomiting 01/06/2013 Musculoskeletal No stiffness 01/06/2013 Musculoskeletal No swelling 01/06/2013 Musculoskeletal No muscle weakness 01/06/2013 Musculoskeletal No myalgias 01/06/2013 Psychiatric anxiety 12/25 Psychiatric depression 0 01/06/2013 Constitutional No recent illness 11/21/2012 Constitutional No anorexia 11/21/2012 Constitutional No night sweats 11/21/2012 Constitutional No fatigue 11/21/2012 Constitutional No chills 11/21/2012 Constitutional No diaphoresis 11/21/2012 Constitutional No fever 11/21/2012 Constitutional No insomnia 11/21/2012 Constitutional No malaise 11/21/2012 Eyes No eye discharge Eyes No eye erythema Ears/Nose/Throat/Neck No dizziness 11/21/2012 Ears/Nose/Throat/Neck hoarseness 11/21/2012 Ears/Nose/Throat/Neck No nasal discharge 11/21/2012 Ears/Nose/Throat/Neck No sore throat 11/21/2012 Ears/Nose/Throat/Neck No sinus congestion 11/21/2012 Cardiovascular No chest pain/pressure 11/21/2012 Gastrointestinal No abdominal pain 11/21/2012 Gastrointestinal No constipation 11/21/2012 Gastrointestinal No diarrhea 11/21/2012 Gastrointestinal No nausea 11/21/2012 Gastrointestinal No vomiting 11/21/2012 Genitourinary/Nephrology No dysuria 11/21/2012 Dermatologic No rash Dermatologic No sores Musculoskeletal No myalgias 10/28/2012 Psychiatric anxiety 030 11/2012 Psychiatric depression 0 10/28/2012 Constitutional No chills 10/28/2012 Constitutional No diaphoresis 10/28/2012 Constitutional No fatigue 10/28/2012 Constitutional No fever 10/28/2012 Eyes No eye discharge Eyes No eye erythema 11/2012 Ears/Nose/Throat/Neck No dizziness 10/28/2012 Ears/Nose/Throat/Neck No headache 10/28/2012 Ears/Nose/Throat/Neck No nasal allergies 10/28/2012 Ears/Nose/Throat/Neck No nasal discharge 10/28/2012 Ears/Nose/Throat/Neck No sore throat 10/28/2012 Ears/Nose/Throat/Neck No sinus congestion 10/28/2012 Respiratory No productive sputum 10/28/2012 Respiratory No chest congestion 10/28/2012 Respiratory No cough 11/2012 Respiratory No dyspnea 0 10/28/2012 Gastrointestinal No abdominal pain 10/28/2012 Gastrointestinal No constipation 10/28/2012 Gastrointestinal No diarrhea 10/28/2012 Gastrointestinal No nausea 10/28/2012 Gastrointestinal No vomiting 10/28/2012 Musculoskeletal No stiffness 10/28/2012 Musculoskeletal No swelling 10/28/2012 Musculoskeletal No muscle weakness 10/28/2012 Constitutional No chills 09/30/2012 Constitutional No diaphoresis 09/30/2012 Constitutional No fatigue 09/30/2012 Constitutional No fever 09/30/2012 Eyes No eye discharge Eyes No eye erythema 11/2012 Ears/Nose/Throat/Neck No dizziness 09/30/2012 Ears/Nose/Throat/Neck No headache 09/30/2012 Ears/Nose/Throat/Neck No nasal allergies 09/30/2012 Ears/Nose/Throat/Neck No nasal discharge 09/30/2012 Ears/Nose/Throat/Neck No sore throat 09/30/2012 Ears/Nose/Throat/Neck No sinus congestion 09/30/2012 Cardiovascular No chest pain/pressure 09/30/2012 Respiratory No productive sputum 09/30/2012 Respiratory No chest congestion 09/30/2012 Respiratory No cough 11/2012 Respiratory No dyspnea 0 09/30/2012 Gastrointestinal No abdominal pain 09/30/2012 Gastrointestinal No constipation 09/30/2012 Gastrointestinal No diarrhea 09/30/2012 Gastrointestinal No nausea 09/30/2012 Gastrointestinal No vomiting 09/30/2012 Psychiatric anxiety 11/2012 Psychiatric depression 0 09/30/2012 Musculoskeletal No stiffness 09/30/2012 Musculoskeletal No swelling 09/30/2012 Musculoskeletal No muscle weakness 09/30/2012 Musculoskeletal No myalgias 09/30/2012 Constitutional No chills 08/14/2012 Constitutional No diaphoresis 08/14/2012 Constitutional No fatigue 08/14/2012 Constitutional No fever 08/14/2012 Eyes No eye discharge Eyes No eye erythema Ears/Nose/Throat/Neck No dizziness 08/14/2012 Ears/Nose/Throat/Neck No headache 08/14/2012 Ears/Nose/Throat/Neck No nasal allergies 08/14/2012 Ears/Nose/Throat/Neck No nasal discharge 08/14/2012 Ears/Nose/Throat/Neck No sore throat 08/14/2012 Ears/Nose/Throat/Neck No sinus congestion 08/14/2012 Cardiovascular No chest pain/pressure 08/14/2012 Respiratory No productive sputum 08/14/2012 Respiratory No chest congestion 08/14/2012 Respiratory No cough Respiratory No dyspnea 1 10/15/2011 Gastrointestinal No abdominal pain 08/14/2012 Gastrointestinal No constipation 08/14/2012 Gastrointestinal No diarrhea 08/14/2012 Gastrointestinal No nausea 08/14/2012 Gastrointestinal No vomiting 08/14/2012 Psychiatric anxiety 07/27 Psychiatric depression 1 10/15/2011 Constitutional No chills 08/05/2012 Constitutional No diaphoresis 08/05/2012 Constitutional No fatigue 08/05/2012 Constitutional No fever 08/05/2012 Eyes No eye discharge Eyes No eye erythema 05/2012 Ears/Nose/Throat/Neck No dizziness 08/05/2012 Ears/Nose/Throat/Neck No headache 08/05/2012 Ears/Nose/Throat/Neck No nasal allergies 08/05/2012 Ears/Nose/Throat/Neck No nasal discharge 08/05/2012 Ears/Nose/Throat/Neck No sore throat 08/05/2012 Ears/Nose/Throat/Neck No sinus congestion 08/05/2012 Cardiovascular No chest pain/pressure 08/05/2012 Respiratory No productive sputum 08/05/2012 Respiratory No chest congestion 08/05/2012 Respiratory No cough 05/2012 Respiratory No dyspnea 1 10/06/2011 Gastrointestinal No abdominal pain 08/05/2012 Gastrointestinal No constipation 08/05/2012 Gastrointestinal No diarrhea 08/05/2012 Gastrointestinal No nausea 08/05/2012 Gastrointestinal No vomiting 08/05/2012 Psychiatric anxiety 07/27 Psychiatric depression 1 10/06/2011 Constitutional No chills 07/15/2012 Constitutional No diaphoresis 07/15/2012 Constitutional No fatigue 07/15/2012 Constitutional No fever 07/15/2012 Eyes No eye discharge Eyes No eye erythema Ears/Nose/Throat/Neck No dizziness 07/15/2012 Ears/Nose/Throat/Neck No headache 07/15/2012 Ears/Nose/Throat/Neck No nasal allergies 07/15/2012 Ears/Nose/Throat/Neck No nasal discharge 07/15/2012 Ears/Nose/Throat/Neck No sinus congestion 07/15/2012 Ears/Nose/Throat/Neck No sore throat 07/15/2012 Cardiovascular No chest pain/pressure 07/15/2012 Respiratory No productive sputum 07/15/2012 Respiratory No chest congestion 07/15/2012 Respiratory No cough Respiratory No dyspnea 1 09/14/2011 Gastrointestinal No abdominal pain 07/15/2012 Gastrointestinal No constipation 07/15/2012 Gastrointestinal No diarrhea 07/15/2012 Gastrointestinal No nausea 07/15/2012 Gastrointestinal No vomiting 07/15/2012 Psychiatric anxiety 06/27 Psychiatric depression 1 09/14/2011 Constitutional No recent illness 05/27/2012 Constitutional No chills 05/27/2012 Constitutional No fatigue 05/27/2012 Constitutional No fever 05/27/2012 Constitutional No insomnia 05/27/2012 Constitutional No malaise 05/27/2012 Cardiovascular No chest pain/pressure 05/27/2012 Cardiovascular No dyspnea 05/27/2012 Cardiovascular No edema 05/27/2012 Cardiovascular No exercise intolerance 05/27/2012 Cardiovascular No fatigue 05/27/2012 Cardiovascular No near-syncope/dizziness 05/27/2012 Respiratory No chest tightness 05/27/2012 Respiratory No cigarette smoking 05/27/2012 Respiratory No cough 08/2011 Respiratory No dyspnea 1 Respiratory No pedal edema 05/27/2012 Respiratory No snoring 1 Respiratory No wheezing 05/27/2012 Constitutional No insomnia 05/03/2012 Constitutional No recent illness 05/03/2012 Constitutional No anorexia 05/03/2012 Constitutional No night sweats 05/03/2012 Constitutional No chills 05/03/2012 Constitutional No diaphoresis 05/03/2012 Constitutional No fever 05/03/2012 Constitutional No fatigue 05/03/2012 Eyes No eye discharge Eyes No eye erythema 02/2012 Ears/Nose/Throat/Neck No dizziness 05/03/2012 Ears/Nose/Throat/Neck No nasal discharge 05/03/2012 Ears/Nose/Throat/Neck No sinus congestion 05/03/2012 Ears/Nose/Throat/Neck No sore throat 05/03/2012 Cardiovascular No chest pain/pressure 05/03/2012 Cardiovascular No dyspnea 05/03/2012 Respiratory No chest congestion 05/03/2012 Respiratory No cough 02/2012 Gastrointestinal No abdominal pain 05/03/2012 Gastrointestinal No constipation 05/03/2012 Gastrointestinal No diarrhea 05/03/2012 Gastrointestinal No nausea 05/03/2012 Gastrointestinal No vomiting 05/03/2012 Musculoskeletal No joint complaint 05/03/2012 Dermatologic No rash 02/2012 Cardiovascular No near-syncope/dizziness 04/23/2012 Respiratory No chest tightness 04/23/2012 Respiratory No cigarette smoking 04/23/2012 Respiratory No cough Respiratory No dyspnea 0 04/23/2012 Respiratory No pedal edema 04/23/2012 Respiratory No snoring 0 04/23/2012 Respiratory No wheezing 04/23/2012 Psychiatric No anxiety 0 04/23/2012 Psychiatric No depression 04/23/2012 Constitutional No recent illness 04/23/2012 Constitutional No chills 04/23/2012 Constitutional No fatigue 04/23/2012 Constitutional No fever 04/23/2012 Constitutional No insomnia 04/23/2012 Constitutional No malaise 04/23/2012 Cardiovascular No chest pain/pressure 04/23/2012 Cardiovascular No dyspnea 04/23/2012 Cardiovascular edema Cardiovascular No exercise intolerance 04/23/2012 Cardiovascular No fatigue 04/23/2012 Constitutional No recent illness 03/25/2012 Constitutional No anorexia 03/25/2012 Constitutional No night sweats 03/25/2012 Constitutional No chills 03/25/2012 Constitutional No diaphoresis 03/25/2012 Constitutional No fatigue 03/25/2012 Constitutional No fever 03/25/2012 Constitutional No insomnia 03/25/2012 Constitutional No malaise 03/25/2012 Eyes No eye discharge Eyes No eye erythema Ears/Nose/Throat/Neck No dizziness 03/25/2012 Ears/Nose/Throat/Neck No headache 03/25/2012 Ears/Nose/Throat/Neck No nasal discharge 03/25/2012 Respiratory No productive sputum 03/25/2012 Respiratory No chest congestion 03/25/2012 Respiratory No cough Gastrointestinal No vomiting 03/25/2012 Gastrointestinal No nausea 03/25/2012 Gastrointestinal No constipation 03/25/2012 Gastrointestinal No diarrhea 03/25/2012 Genitourinary/Nephrology No dysuria 03/25/2012 Constitutional No recent illness 03/12/2012 Constitutional No anorexia 03/12/2012 Constitutional No night sweats 03/12/2012 Constitutional No chills 03/12/2012 Constitutional No diaphoresis 03/12/2012 Constitutional No fatigue 03/12/2012 Constitutional No fever 03/12/2012 Constitutional No insomnia 03/12/2012 Constitutional No malaise 03/12/2012 Constitutional No obesity 03/12/2012 Eyes No eye discharge Eyes No eye erythema Ears/Nose/Throat/Neck No dizziness 03/12/2012 Ears/Nose/Throat/Neck No headache 03/12/2012 Ears/Nose/Throat/Neck No nasal allergies 03/12/2012 Ears/Nose/Throat/Neck No nasal discharge 03/12/2012 Ears/Nose/Throat/Neck No otalgia 03/12/2012 Respiratory No productive sputum 03/12/2012 Respiratory No chest congestion 03/12/2012 Respiratory No cough Gastrointestinal No abdominal pain 03/12/2012 Gastrointestinal No diarrhea 03/12/2012 Gastrointestinal No constipation 03/12/2012 Gastrointestinal gas and bloating 03/12/2012 Gastrointestinal No nausea 03/12/2012 Gastrointestinal No vomiting 03/12/2012 Genitourinary/Nephrology No dysuria 03/12/2012 Dermatologic No rash Dermatologic No sores Dermatologic mole change 03/12/2012 Neurologic No alteration of consciousness 03/12/2012 Constitutional No chills 01/23/2012 Constitutional No diaphoresis 01/23/2012 Constitutional No fatigue 01/23/2012 Constitutional No fever 01/23/2012 Eyes No eye discharge Eyes No eye erythema Ears/Nose/Throat/Neck No dizziness 01/23/2012 Ears/Nose/Throat/Neck No nasal allergies 01/23/2012 Ears/Nose/Throat/Neck No nasal discharge 01/23/2012 Ears/Nose/Throat/Neck No sinus congestion 01/23/2012 Ears/Nose/Throat/Neck No sore throat 01/23/2012 Respiratory No productive sputum 01/23/2012 Respiratory No chest congestion 01/23/2012 Respiratory No cough Gastrointestinal No abdominal pain 01/23/2012 Gastrointestinal No constipation 01/23/2012 Gastrointestinal No diarrhea 01/23/2012 Gastrointestinal No nausea 01/23/2012 Gastrointestinal No vomiting 01/23/2012 Psychiatric anxiety 12/26 Psychiatric depression 0 01/23/2012 Musculoskeletal No stiffness 01/23/2012 Neurologic No dizziness 01/23/2012 Constitutional No recent illness 01/12/2012 Constitutional No anorexia 01/12/2012 Constitutional No night sweats 01/12/2012 Constitutional No chills 01/12/2012 Constitutional No diaphoresis 01/12/2012 Constitutional No fatigue 01/12/2012 Constitutional No fever 01/12/2012 Constitutional No insomnia 01/12/2012 Cardiovascular No chest pain/pressure 01/12/2012 Cardiovascular No hypertension 01/12/2012 Cardiovascular No fatigue 01/12/2012 Ears/Nose/Throat/Neck No dizziness 12/25/2011 Ears/Nose/Throat/Neck No headache 12/25/2011 Ears/Nose/Throat/Neck No sore throat 12/25/2011 Respiratory No productive sputum 12/25/2011 Respiratory No chest congestion 12/25/2011 Respiratory No dyspnea 0 12/25/2011 Psychiatric anxiety 11/27 Psychiatric depression 0 12/25/2011 Musculoskeletal No stiffness 12/25/2011 Musculoskeletal arthralgia(s) 12/25/2011 Cardiovascular dyspnea 0 12/25/2011 Cardiovascular No edema 12/25/2011 Constitutional No chills 12/25/2011 Constitutional No fever 12/25/2011 Ears/Nose/Throat/Neck No nasal discharge 12/25/2011 Ears/Nose/Throat/Neck No nasal allergies 12/25/2011 Ears/Nose/Throat/Neck No sinus congestion 12/25/2011 Cardiovascular No chest pain/pressure 12/25/2011 Respiratory No cough Gastrointestinal No abdominal pain 12/25/2011 Gastrointestinal No constipation 12/25/2011 Gastrointestinal No diarrhea 12/25/2011 Gastrointestinal No vomiting 12/25/2011 Gastrointestinal No nausea 12/25/2011 Constitutional No diaphoresis 12/25/2011 Constitutional No fatigue 12/25/2011 Eyes No eye discharge Eyes No eye erythema Eyes No vision change Cardiovascular palpitations 12/04/2011 Genitourinary/Nephrology No dysuria 12/04/2011 Neurologic No alteration of consciousness 12/04/2011 Constitutional recent illness 12/04/2011 Ears/Nose/Throat/Neck No dizziness 12/04/2011 Ears/Nose/Throat/Neck No headache 12/04/2011 Cardiovascular No chest pain/pressure 12/04/2011 Respiratory No chest congestion 12/04/2011 Respiratory No cough 04/2012 Gastrointestinal No constipation 12/04/2011 Gastrointestinal No nausea 12/04/2011 Gastrointestinal No vomiting 12/04/2011 Constitutional No chills 12/04/2011 Constitutional No diaphoresis 12/04/2011 Constitutional No fatigue 12/04/2011 Constitutional No fever 12/04/2011 Eyes No eye discharge Eyes No eye erythema 04/2012 Ears/Nose/Throat/Neck No nasal allergies 12/04/2011 Ears/Nose/Throat/Neck No nasal discharge 12/04/2011 Ears/Nose/Throat/Neck No sinus congestion 12/04/2011 Ears/Nose/Throat/Neck No sore throat 12/04/2011 Respiratory No productive sputum 12/04/2011 Respiratory No dyspnea 0 12/04/2011 Gastrointestinal No abdominal pain 12/04/2011 Gastrointestinal No diarrhea 12/04/2011 Psychiatric anxiety 04/04/2012 Psychiatric depression 0 12/04/2011 Ears/Nose/Throat/Neck No headache 09/20/2011 Respiratory No dyspnea 0 09/20/2011 Constitutional No chills 09/20/2011 Constitutional No fever 09/20/2011 Ears/Nose/Throat/Neck No dizziness 09/20/2011 Cardiovascular No chest pain/pressure 09/20/2011 Gastrointestinal No nausea 09/20/2011 Gastrointestinal No vomiting 09/20/2011 Constitutional recent illness 09/20/2011 Constitutional No diaphoresis 09/20/2011 Constitutional No fatigue 09/20/2011 Eyes No eye discharge Eyes No eye erythema Ears/Nose/Throat/Neck No nasal allergies 09/20/2011 Ears/Nose/Throat/Neck No nasal discharge 09/20/2011 Ears/Nose/Throat/Neck No sinus congestion 09/20/2011 Ears/Nose/Throat/Neck No sore throat 09/20/2011 Respiratory No productive sputum 09/20/2011 Respiratory No chest congestion 09/20/2011 Respiratory No cough Gastrointestinal No abdominal pain 09/20/2011 Gastrointestinal No constipation 09/20/2011 Gastrointestinal No diarrhea 09/20/2011 Psychiatric anxiety 08/28 Psychiatric depression 0 09/20/2011 Constitutional recent illness 09/06/2011 Constitutional No chills 09/06/2011 Constitutional No diaphoresis 09/06/2011 Constitutional No fatigue 09/06/2011 Constitutional No fever 09/06/2011 Eyes No eye discharge Eyes No eye erythema 06/2012 Ears/Nose/Throat/Neck No dizziness 09/06/2011 Ears/Nose/Throat/Neck No nasal allergies 09/06/2011 Ears/Nose/Throat/Neck No nasal discharge 09/06/2011 Ears/Nose/Throat/Neck No sore throat 09/06/2011 Ears/Nose/Throat/Neck No sinus congestion 09/06/2011 Cardiovascular No chest pain/pressure 09/06/2011 Respiratory No productive sputum 09/06/2011 Respiratory No cough 06/2012 Respiratory No chest congestion 09/06/2011 Gastrointestinal No abdominal pain 09/06/2011 Gastrointestinal No nausea 09/06/2011 Gastrointestinal No vomiting 09/06/2011 Gastrointestinal No constipation 09/06/2011 Gastrointestinal No diarrhea 09/06/2011 Psychiatric anxiety 08/27 Psychiatric depression 0 09/06/2011 Constitutional No night sweats 08/30/2011 Constitutional No fatigue 08/30/2011 Constitutional No fever 08/30/2011 Dermatologic No rash 11/2011 Dermatologic No sores Psychiatric No anxiety 0 08/30/2011 Psychiatric No depression 08/30/2011 Gastrointestinal abdominal pain 08/30/2011 Gastrointestinal constipation 08/30/2011 Cardiovascular hypertension 08/30/2011 Cardiovascular fatigue 0 08/30/2011 Cardiovascular No chest pain/pressure 08/30/2011 Respiratory No cough 11/2011 Respiratory No chest congestion 08/30/2011 Respiratory No chest tightness 08/30/2011 Neurologic No dizziness 08/30/2011 Neurologic No headache 0 08/30/2011 Musculoskeletal No back pain 08/30/2011 Musculoskeletal arthralgia(s) 08/30/2011 Constitutional No recent illness 08/23/2011 Constitutional chills Constitutional fatigue 1 10/24/2010 Constitutional fever Eyes No eye discharge Eyes No eye erythema Ears/Nose/Throat/Neck No dizziness 08/23/2011 Ears/Nose/Throat/Neck headache 08/23/2011 Ears/Nose/Throat/Neck No hoarseness 08/23/2011 Ears/Nose/Throat/Neck nasal discharge 08/23/2011 Ears/Nose/Throat/Neck sinus congestion 08/23/2011 Ears/Nose/Throat/Neck No sore throat 08/23/2011 Cardiovascular No chest pain/pressure 08/23/2011 Respiratory No productive sputum 08/23/2011 Respiratory No cough Respiratory No dyspnea 1 10/24/2010 Gastrointestinal No abdominal pain 08/23/2011 Gastrointestinal No nausea 08/23/2011 Gastrointestinal No vomiting 08/23/2011 Gastrointestinal No constipation 08/23/2011 Gastrointestinal No diarrhea 08/23/2011 Genitourinary/Nephrology No dysuria 08/23/2011 Genitourinary/Nephrology urinary frequency 08/23/2011 Genitourinary/Nephrology urinary urgency 08/23/2011 Dermatologic No rash Constitutional No recent illness 08/09/2011 Constitutional No chills 08/09/2011 Constitutional No diaphoresis 08/09/2011 Constitutional No fatigue 08/09/2011 Constitutional No fever 08/09/2011 Constitutional No insomnia 08/09/2011 Eyes No eye discharge Eyes No eye erythema Ears/Nose/Throat/Neck No headache 08/09/2011 Cardiovascular No chest pain/pressure 08/09/2011 Genitourinary/Nephrology No breast c omplaint 08/09/2011 Genitourinary/Nephrology No dysuria 08/09/2011 Genitourinary/Nephrology No vaginal discharge 08/09/2011 Genitourinary/Nephrology No pelvic pain 08/09/2011 Dermatologic sores 08/09 Constitutional No chills 05/04/2011 Ears/Nose/Throat/Neck facial pain 05/04/2011 Ears/Nose/Throat/Neck No dizziness 05/04/2011 Cardiovascular No chest pain/pressure 05/04/2011 Cardiovascular No palpitations 05/04/2011 Respiratory No chest congestion 05/04/2011 Respiratory No chest tightness 05/04/2011 Respiratory No cough 03/2011 Genitourinary/Nephrology No urinary urgenc y 05/04/2011 Genitourinary/Nephrology No urinary frequency 05/04/2011 Genitourinary/Nephrology No urinary incontinence 05/04/2011 Musculoskeletal No back pain 05/04/2011 Dermatologic No rash 03/2011 Dermatologic No sores Neurologic No ataxia 03/2011 Neurologic No dizziness 05/04/2011 Neurologic No pain, back 05/04/2011 Psychiatric No anxiety 0 05/04/2011 Psychiatric No depression 05/04/2011 Musculoskeletal joint complaint 05/04/2011 Respiratory No chest tightness 04/19/2011 Respiratory cough 2010 Respiratory No daytime hypersomnolence 04/19/2011 Constitutional fever Constitutional chills Constitutional fatigue 0 04/19/2011 Constitutional No insomnia 04/19/2011 Eyes No eye discharge Eyes No eye pain 011 Eyes No vision change Ears/Nose/Throat/Neck No dental pain 04/19/2011 Ears/Nose/Throat/Neck No dizziness 04/19/2011 Ears/Nose/Throat/Neck No dysphagia 04/19/2011 Ears/Nose/Throat/Neck facial pain 04/19/2011 Ears/Nose/Throat/Neck headache 04/19/2011 Ears/Nose/Throat/Neck nasal allergies 04/19/2011 Ears/Nose/Throat/Neck nasal discharge 04/19/2011 Gastrointestinal No nausea 04/19/2011 Gastrointestinal No vomiting 04/19/2011 Genitourinary/Nephrology No dysuria 04/19/2011 Genitourinary/Nephrology No hematuria 04/19/2011 Genitourinary/Nephrology No urinary urgenc y 04/19/2011 Genitourinary/Nephrology No urinary frequency 04/19/2011 Dermatologic No rash Ears/Nose/Throat/Neck No neck pain 04/19/2011 Ears/Nose/Throat/Neck No otitis media 04/19/2011 Ears/Nose/Throat/Neck postnasal drip 04/19/2011 Ears/Nose/Throat/Neck sinus congestion 04/19/2011 Ears/Nose/Throat/Neck sore throat 04/19/2011 Ears/Nose/Throat/Neck No tinnitus 04/19/2011 Cardiovascular No chest pain/pressure 04/19/2011 Cardiovascular No paroxysmal nocturn al dyspnea 04/19/2011 Cardiovascular No syncope 04/19/2011 Cardiovascular No edema 04/19/2011 Respiratory asthma 04/19 Respiratory productive sputum 04/19/2011 Respiratory chest congestion 04/19/2011 Respiratory No dyspnea on exertion 04/19/2011 Respiratory No hemoptysis 04/19/2011 Respiratory wheezing Respiratory No pedal edema 04/19/2011 Gastrointestinal gastroesophageal reflux 04/19/2011 Gastrointestinal No diarrhea 04/19/2011 Gastrointestinal No constipation 04/19/2011 Ears/Nose/Throat/Neck hoarseness 04/19/2011 System Result Effective Dates Constitutional recent illness 02/02/2017 Constitutional No anorexia 02/02/2017 Constitutional No night sweats 02/02/2017 Constitutional No chills 02/02/2017 Constitutional diaphoresis 02/02/2017 Constitutional fatigue 0 02/02/2017 Constitutional No fever 02/02/2017 Constitutional No insomnia 02/02/2017 Constitutional No malaise 02/02/2017 Constitutional No weight loss 02/02/2017 Constitutional No weight gain 02/02/2017 Eyes No eye discharge Eyes No eye erythema 04/2017 Ears/Nose/Throat/Neck No dizziness 02/02/2017 Ears/Nose/Throat/Neck No headache 02/02/2017 Cardiovascular No chest pain/pressure 02/02/2017 Cardiovascular No dyspnea 02/02/2017 Cardiovascular edema 04/2017 Respiratory No productive sputum 02/02/2017 Respiratory No chest congestion 02/02/2017 Respiratory cough 2016 Gastrointestinal No abdominal pain 02/02/2017 Gastrointestinal constipation 02/02/2017 Gastrointestinal No diarrhea 02/02/2017 Genitourinary/Nephrology dysuria 02/02/2017 Musculoskeletal joint complaint 02/02/2017 Gastrointestinal gastroesophageal reflux 02/02/2017 Dermatologic No rash 04/2017 Neurologic No alteration of consciousness 02/02/2017 Psychiatric anxiety 06/04/2017 Constitutional recent illness 01/15/2017 Constitutional No anorexia 01/15/2017 Constitutional No chills 01/15/2017 Constitutional No night sweats 01/15/2017 Constitutional No fatigue 01/15/2017 Constitutional No diaphoresis 01/15/2017 Constitutional No fever 01/15/2017 Constitutional No insomnia 01/15/2017 Constitutional No weight gain 01/15/2017 Constitutional No weight loss 01/15/2017 Constitutional No malaise 01/15/2017 Eyes No eye discharge Eyes No eye erythema Ears/Nose/Throat/Neck nasal allergies 01/15/2017 Ears/Nose/Throat/Neck nasal discharge 01/15/2017 Ears/Nose/Throat/Neck sinus congestion 01/15/2017 Ears/Nose/Throat/Neck No sore throat 01/15/2017 Cardiovascular No chest pain/pressure 01/15/2017 Cardiovascular No edema 01/15/2017 Respiratory productive sputum 01/15/2017 Respiratory chest congestion 01/15/2017 Respiratory cough 2016 Gastrointestinal No abdominal pain 01/15/2017 Musculoskeletal joint complaint 01/15/2017 Dermatologic No rash Neurologic No alteration of consciousness 01/15/2017 Constitutional No recent illness 01/04/2017 Constitutional No chills 01/04/2017 Constitutional No diaphoresis 01/04/2017 Constitutional No fatigue 01/04/2017 Constitutional No fever 01/04/2017 Constitutional insomnia 01/04/2017 Constitutional No malaise 01/04/2017 Eyes No eye discharge Eyes No eye erythema 06/2017 Ears/Nose/Throat/Neck No dizziness 01/04/2017 Ears/Nose/Throat/Neck No headache 01/04/2017 Ears/Nose/Throat/Neck No nasal allergies 01/04/2017 Ears/Nose/Throat/Neck No nasal discharge 01/04/2017 Ears/Nose/Throat/Neck No sore throat 01/04/2017 Ears/Nose/Throat/Neck No sinus congestion 01/04/2017 Cardiovascular No chest pain/pressure 01/04/2017 Cardiovascular No dyspnea 01/04/2017 Cardiovascular edema 06/2017 Cardiovascular No exercise intolerance 01/04/2017 Cardiovascular No fatigue 01/04/2017 Cardiovascular hypertension 01/04/2017 Respiratory No productive sputum 01/04/2017 Respiratory No chest congestion 01/04/2017 Respiratory No cough 06/2017 Respiratory dyspnea on exertion 01/04/2017 Respiratory No dyspnea 0 01/04/2017 Gastrointestinal No abdominal pain 01/04/2017 Gastrointestinal No constipation 01/04/2017 Gastrointestinal No nausea 01/04/2017 Gastrointestinal No vomiting 01/04/2017 Genitourinary/Nephrology No dysuria 01/04/2017 Musculoskeletal No stiffness 01/04/2017 Musculoskeletal No swelling 01/04/2017 Musculoskeletal joint complaint 01/04/2017 Musculoskeletal No muscle weakness 01/04/2017 Musculoskeletal No myalgias 01/04/2017 Dermatologic No rash 06/2017 Dermatologic No scar 06/2017 Neurologic No dizziness 01/04/2017 Neurologic No headache 0 01/04/2017 Neurologic No neck pain 01/04/2017 Neurologic No syncope Psychiatric anxiety 12/25 Psychiatric depression 0 01/04/2017 Constitutional No recent illness 09/07/2016 Constitutional No chills 09/07/2016 Constitutional No diaphoresis 09/07/2016 Constitutional No fatigue 09/07/2016 Constitutional No fever 09/07/2016 Constitutional insomnia 09/07/2016 Constitutional No malaise 09/07/2016 Eyes No eye discharge Eyes No eye erythema 07/2017 Ears/Nose/Throat/Neck No dizziness 09/07/2016 Ears/Nose/Throat/Neck No headache 09/07/2016 Ears/Nose/Throat/Neck No nasal allergies 09/07/2016 Ears/Nose/Throat/Neck No nasal discharge 09/07/2016 Ears/Nose/Throat/Neck No sore throat 09/07/2016 Ears/Nose/Throat/Neck No sinus congestion 09/07/2016 Cardiovascular No chest pain/pressure 09/07/2016 Cardiovascular No dyspnea 09/07/2016 Cardiovascular edema 07/2017 Cardiovascular No exercise intolerance 09/07/2016 Cardiovascular No fatigue 09/07/2016 Cardiovascular hypertension 09/07/2016 Respiratory No productive sputum 09/07/2016 Respiratory No chest congestion 09/07/2016 Respiratory No cough 07/2017 Respiratory dyspnea on exertion 09/07/2016 Respiratory No dyspnea 0 09/07/2016 Gastrointestinal No abdominal pain 09/07/2016 Gastrointestinal No constipation 09/07/2016 Gastrointestinal No nausea 09/07/2016 Gastrointestinal No vomiting 09/07/2016 Genitourinary/Nephrology No dysuria 09/07/2016 Musculoskeletal No stiffness 09/07/2016 Musculoskeletal No swelling 09/07/2016 Musculoskeletal joint complaint 09/07/2016 Musculoskeletal No muscle weakness 09/07/2016 Musculoskeletal No myalgias 09/07/2016 Dermatologic No rash 07/2017 Dermatologic No scar 07/2017 Neurologic No dizziness 09/07/2016 Neurologic No headache 0 09/07/2016 Neurologic No neck pain 09/07/2016 Neurologic No syncope Psychiatric anxiety 08/27 Psychiatric depression 0 09/07/2016 Constitutional No recent illness 07/06/2016 Constitutional No chills 07/06/2016 Constitutional No diaphoresis 07/06/2016 Constitutional No fatigue 07/06/2016 Constitutional No fever 07/06/2016 Constitutional insomnia 07/06/2016 Constitutional No malaise 07/06/2016 Eyes No eye discharge Eyes No eye erythema 05/2016 Ears/Nose/Throat/Neck No dizziness 07/06/2016 Ears/Nose/Throat/Neck No headache 07/06/2016 Ears/Nose/Throat/Neck No nasal allergies 07/06/2016 Ears/Nose/Throat/Neck No nasal discharge 07/06/2016 Ears/Nose/Throat/Neck No sore throat 07/06/2016 Ears/Nose/Throat/Neck No sinus congestion 07/06/2016 Cardiovascular No chest pain/pressure 07/06/2016 Cardiovascular No dyspnea 07/06/2016 Cardiovascular edema 05/2016 Cardiovascular No exercise intolerance 07/06/2016 Cardiovascular No fatigue 07/06/2016 Cardiovascular hypertension 07/06/2016 Respiratory No productive sputum 07/06/2016 Respiratory No chest congestion 07/06/2016 Respiratory No cough 05/2016 Respiratory dyspnea on exertion 07/06/2016 Respiratory No dyspnea 1 09/05/2015 Gastrointestinal No abdominal pain 07/06/2016 Gastrointestinal No constipation 07/06/2016 Gastrointestinal diarrhea 07/06/2016 Gastrointestinal No nausea 07/06/2016 Gastrointestinal No vomiting 07/06/2016 Genitourinary/Nephrology No dysuria 07/06/2016 Musculoskeletal No stiffness 07/06/2016 Musculoskeletal No swelling 07/06/2016 Musculoskeletal joint complaint 07/06/2016 Musculoskeletal No muscle weakness 07/06/2016 Musculoskeletal No myalgias 07/06/2016 Dermatologic No rash 05/2016 Dermatologic No scar 05/2016 Neurologic No dizziness 07/06/2016 Neurologic No headache 1 09/05/2015 Neurologic No neck pain 07/06/2016 Neurologic No syncope Psychiatric anxiety 06/27 Psychiatric depression 1 09/05/2015 Constitutional No recent illness 06/08/2016 Constitutional No chills 06/08/2016 Constitutional No diaphoresis 06/08/2016 Constitutional No fatigue 06/08/2016 Constitutional No fever 06/08/2016 Constitutional insomnia 06/08/2016 Constitutional No malaise 06/08/2016 Eyes No eye discharge Eyes No eye erythema Ears/Nose/Throat/Neck No dizziness 06/08/2016 Ears/Nose/Throat/Neck No headache 06/08/2016 Ears/Nose/Throat/Neck No nasal allergies 06/08/2016 Ears/Nose/Throat/Neck No nasal discharge 06/08/2016 Ears/Nose/Throat/Neck No sore throat 06/08/2016 Ears/Nose/Throat/Neck No sinus congestion 06/08/2016 Cardiovascular No chest pain/pressure 06/08/2016 Cardiovascular No dyspnea 06/08/2016 Cardiovascular edema Cardiovascular No exercise intolerance 06/08/2016 Cardiovascular No fatigue 06/08/2016 Cardiovascular hypertension 06/08/2016 Respiratory No productive sputum 06/08/2016 Respiratory No chest congestion 06/08/2016 Respiratory No cough Respiratory dyspnea on exertion 06/08/2016 Respiratory No dyspnea 1 Gastrointestinal No abdominal pain 06/08/2016 Gastrointestinal No constipation 06/08/2016 Gastrointestinal diarrhea 06/08/2016 Gastrointestinal No nausea 06/08/2016 Gastrointestinal No vomiting 06/08/2016 Genitourinary/Nephrology No dysuria 06/08/2016 Musculoskeletal No stiffness 06/08/2016 Musculoskeletal No swelling 06/08/2016 Musculoskeletal joint complaint 06/08/2016 Musculoskeletal No muscle weakness 06/08/2016 Musculoskeletal No myalgias 06/08/2016 Dermatologic No rash Dermatologic No scar Neurologic No dizziness 06/08/2016 Neurologic No headache 1 Neurologic No neck pain 06/08/2016 Neurologic No syncope Psychiatric anxiety 05/27 Psychiatric depression 1 Constitutional No recent illness 04/06/2016 Constitutional No anorexia 04/06/2016 Constitutional No night sweats 04/06/2016 Constitutional No chills 04/06/2016 Constitutional No diaphoresis 04/06/2016 Constitutional No fatigue 04/06/2016 Constitutional No fever 04/06/2016 Constitutional insomnia 04/06/2016 Constitutional No malaise 04/06/2016 Constitutional No weight loss 04/06/2016 Constitutional No weight gain 04/06/2016 Eyes No eye discharge Eyes No eye erythema 06/2016 Ears/Nose/Throat/Neck No dizziness 04/06/2016 Ears/Nose/Throat/Neck No headache 04/06/2016 Ears/Nose/Throat/Neck No nasal allergies 04/06/2016 Ears/Nose/Throat/Neck No nasal discharge 04/06/2016 Ears/Nose/Throat/Neck No sinus congestion 04/06/2016 Ears/Nose/Throat/Neck No sore throat 04/06/2016 Cardiovascular No chest pain/pressure 04/06/2016 Cardiovascular No dyspnea 04/06/2016 Cardiovascular edema 06/2016 Cardiovascular No exercise intolerance 04/06/2016 Cardiovascular No fatigue 04/06/2016 Cardiovascular hypertension 04/06/2016 Respiratory No productive sputum 04/06/2016 Respiratory No chest congestion 04/06/2016 Respiratory No cough 06/2016 Respiratory dyspnea on exertion 04/06/2016 Respiratory No dyspnea 0 04/06/2016 Gastrointestinal No abdominal pain 04/06/2016 Gastrointestinal No constipation 04/06/2016 Gastrointestinal diarrhea 04/06/2016 Gastrointestinal No nausea 04/06/2016 Gastrointestinal No vomiting 04/06/2016 Genitourinary/Nephrology No dysuria 04/06/2016 Musculoskeletal No stiffness 04/06/2016 Musculoskeletal No swelling 04/06/2016 Musculoskeletal joint complaint 04/06/2016 Musculoskeletal No muscle weakness 04/06/2016 Musculoskeletal No myalgias 04/06/2016 Dermatologic No rash 06/2016 Dermatologic No scar 06/2016 Neurologic No dizziness 04/06/2016 Neurologic No headache 0 04/06/2016 Neurologic No neck pain 04/06/2016 Neurologic No syncope Psychiatric anxiety 03/27 Psychiatric depression 0 04/06/2016 Constitutional No chills 03/09/2016 Constitutional No diaphoresis 03/09/2016 Constitutional No fatigue 03/09/2016 Constitutional No fever 03/09/2016 Eyes No eye discharge Eyes No eye erythema Ears/Nose/Throat/Neck No dizziness 03/09/2016 Ears/Nose/Throat/Neck No headache 03/09/2016 Ears/Nose/Throat/Neck No nasal allergies 03/09/2016 Ears/Nose/Throat/Neck No nasal discharge 03/09/2016 Ears/Nose/Throat/Neck No sore throat 03/09/2016 Ears/Nose/Throat/Neck No sinus congestion 03/09/2016 Cardiovascular No chest pain/pressure 03/09/2016 Cardiovascular No dyspnea 03/09/2016 Cardiovascular edema Cardiovascular No exercise intolerance 03/09/2016 Cardiovascular No fatigue 03/09/2016 Cardiovascular hypertension 03/09/2016 Respiratory No productive sputum 03/09/2016 Respiratory No chest congestion 03/09/2016 Respiratory No cough Respiratory No dyspnea 0 03/09/2016 Gastrointestinal No abdominal pain 03/09/2016 Gastrointestinal No constipation 03/09/2016 Gastrointestinal diarrhea 03/09/2016 Gastrointestinal No nausea 03/09/2016 Gastrointestinal No vomiting 03/09/2016 Musculoskeletal No stiffness 03/09/2016 Musculoskeletal No swelling 03/09/2016 Musculoskeletal No muscle weakness 03/09/2016 Musculoskeletal No myalgias 03/09/2016 Dermatologic No rash Dermatologic No scar Neurologic No dizziness 03/09/2016 Neurologic No headache 0 03/09/2016 Neurologic No neck pain 03/09/2016 Neurologic No syncope Psychiatric anxiety 02/24 Psychiatric depression 0 03/09/2016 Constitutional No recent illness 03/09/2016 Constitutional No anorexia 03/09/2016 Constitutional No night sweats 03/09/2016 Constitutional insomnia 03/09/2016 Constitutional No malaise 03/09/2016 Constitutional No weight loss 03/09/2016 Constitutional No weight gain 03/09/2016 Genitourinary/Nephrology No dysuria 03/09/2016 Respiratory dyspnea on exertion 03/09/2016 Musculoskeletal joint complaint 03/09/2016 Constitutional No chills 01/18/2016 Constitutional No diaphoresis 01/18/2016 Constitutional No fatigue 01/18/2016 Constitutional No fever 01/18/2016 Eyes No eye discharge Eyes No eye erythema Ears/Nose/Throat/Neck No dizziness 01/18/2016 Ears/Nose/Throat/Neck No headache 01/18/2016 Ears/Nose/Throat/Neck No nasal allergies 01/18/2016 Ears/Nose/Throat/Neck No nasal discharge 01/18/2016 Ears/Nose/Throat/Neck No sore throat 01/18/2016 Ears/Nose/Throat/Neck No sinus congestion 01/18/2016 Cardiovascular No chest pain/pressure 01/18/2016 Cardiovascular No dyspnea 01/18/2016 Cardiovascular edema Cardiovascular No exercise intolerance 01/18/2016 Cardiovascular No fatigue 01/18/2016 Cardiovascular hypertension 01/18/2016 Respiratory No productive sputum 01/18/2016 Respiratory No chest congestion 01/18/2016 Respiratory No cough Respiratory No dyspnea 0 01/18/2016 Gastrointestinal No abdominal pain 01/18/2016 Gastrointestinal No constipation 01/18/2016 Gastrointestinal No diarrhea 01/18/2016 Gastrointestinal No nausea 01/18/2016 Gastrointestinal No vomiting 01/18/2016 Musculoskeletal No stiffness 01/18/2016 Musculoskeletal No swelling 01/18/2016 Musculoskeletal No muscle weakness 01/18/2016 Musculoskeletal No myalgias 01/18/2016 Dermatologic No rash Dermatologic No scar Neurologic No dizziness 01/18/2016 Neurologic No headache 0 01/18/2016 Neurologic No neck pain 01/18/2016 Neurologic No syncope Psychiatric anxiety 12/26 Psychiatric depression 0 01/18/2016 Constitutional No recent illness 09/09/2015 Constitutional No anorexia 09/09/2015 Constitutional No night sweats 09/09/2015 Constitutional No chills 09/09/2015 Constitutional No diaphoresis 09/09/2015 Constitutional No fatigue 09/09/2015 Constitutional No fever 09/09/2015 Constitutional No insomnia 09/09/2015 Constitutional No malaise 09/09/2015 Constitutional No weight loss 09/09/2015 Constitutional No weight gain 09/09/2015 Constitutional No obesity 09/09/2015 Respiratory dyspnea 08/27 Respiratory dyspnea on exertion 09/09/2015 Respiratory cough 2015 Respiratory No cigarette smoking 09/09/2015 Respiratory No chest tightness 09/09/2015 Respiratory No chest congestion 09/09/2015 Respiratory No snoring 0 09/09/2015 Cardiovascular No chest pain/pressure 09/09/2015 Ears/Nose/Throat/Neck No oral pain 09/09/2015 Ears/Nose/Throat/Neck No otitis media 09/09/2015 Ears/Nose/Throat/Neck No otalgia 09/09/2015 Ears/Nose/Throat/Neck nasal allergies 09/09/2015 Ears/Nose/Throat/Neck nasal discharge 09/09/2015 Ears/Nose/Throat/Neck No sore throat 09/09/2015 Ears/Nose/Throat/Neck No postnasal drip 09/09/2015 Gastrointestinal abdominal pain 09/09/2015 Gastrointestinal constipation 09/09/2015 Gastrointestinal diarrhea 09/09/2015 Genitourinary/Nephrology No dysuria 09/09/2015 Genitourinary/Nephrology No urinary incontinence 09/09/2015 Genitourinary/Nephrology No urinary frequency 09/09/2015 Genitourinary/Nephrology No urinary urgenc y 09/09/2015 Musculoskeletal joint complaint 09/09/2015 Musculoskeletal back pain 09/09/2015 Musculoskeletal myalgias 09/09/2015 Dermatologic No rash Dermatologic No sores Psychiatric anxiety 08/27 Psychiatric No depression 09/09/2015 Ears/Nose/Throat/Neck No dizziness 09/09/2015 Ears/Nose/Throat/Neck No headache 09/09/2015 Constitutional No insomnia 12/25/2014 Cardiovascular No chest pain/pressure 12/25/2014 Cardiovascular edema 08/2014 Respiratory dyspnea on exertion 12/25/2014 Respiratory No cough 08/2014 Respiratory No chest tightness 12/25/2014 Gastrointestinal No diarrhea 12/25/2014 Gastrointestinal No abdominal pain 12/25/2014 Genitourinary/Nephrology No dysuria 12/25/2014 Constitutional No recent illness 12/25/2014 Constitutional No chills 12/25/2014 Constitutional No diaphoresis 12/25/2014 Constitutional No fatigue 12/25/2014 Constitutional No fever 12/25/2014 Eyes No eye discharge Eyes No eye erythema 08/2014 Ears/Nose/Throat/Neck No dizziness 12/25/2014 Ears/Nose/Throat/Neck No headache 12/25/2014 Ears/Nose/Throat/Neck No nasal allergies 12/25/2014 Ears/Nose/Throat/Neck No nasal discharge 12/25/2014 Ears/Nose/Throat/Neck No sore throat 12/25/2014 Ears/Nose/Throat/Neck No sinus congestion 12/25/2014 Respiratory No productive sputum 12/25/2014 Respiratory No chest congestion 12/25/2014 Respiratory No dyspnea 0 12/25/2014 Gastrointestinal No constipation 12/25/2014 Gastrointestinal No nausea 12/25/2014 Gastrointestinal No vomiting 12/25/2014 Musculoskeletal No stiffness 12/25/2014 Musculoskeletal No swelling 12/25/2014 Musculoskeletal No muscle weakness 12/25/2014 Musculoskeletal No myalgias 12/25/2014 Psychiatric anxiety 0508/2014 Psychiatric depression 0 12/25/2014 Constitutional No chills 10/13/2014 Constitutional No diaphoresis 10/13/2014 Constitutional No fatigue 10/13/2014 Constitutional No fever 10/13/2014 Eyes No eye discharge Eyes No eye erythema Ears/Nose/Throat/Neck No dizziness 10/13/2014 Ears/Nose/Throat/Neck No headache 10/13/2014 Ears/Nose/Throat/Neck No nasal allergies 10/13/2014 Ears/Nose/Throat/Neck No nasal discharge 10/13/2014 Ears/Nose/Throat/Neck No sore throat 10/13/2014 Ears/Nose/Throat/Neck No sinus congestion 10/13/2014 Respiratory No productive sputum 10/13/2014 Respiratory No chest congestion 10/13/2014 Respiratory No cough Respiratory No dyspnea 0 10/13/2014 Gastrointestinal No abdominal pain 10/13/2014 Gastrointestinal No constipation 10/13/2014 Gastrointestinal No diarrhea 10/13/2014 Gastrointestinal No nausea 10/13/2014 Gastrointestinal No vomiting 10/13/2014 Musculoskeletal No stiffness 10/13/2014 Musculoskeletal No swelling 10/13/2014 Musculoskeletal No muscle weakness 10/13/2014 Musculoskeletal No myalgias 10/13/2014 Psychiatric anxiety 09/27 Psychiatric depression 0 10/13/2014 Dermatologic No rash Dermatologic No scar Neurologic No dizziness 10/13/2014 Neurologic No headache 0 10/13/2014 Neurologic No neck pain 10/13/2014 Neurologic No syncope Cardiovascular No chest pain/pressure 10/13/2014 Cardiovascular No dyspnea 10/13/2014 Cardiovascular edema Cardiovascular No exercise intolerance 10/13/2014 Cardiovascular No fatigue 10/13/2014 Cardiovascular hypertension 10/13/2014 Constitutional No chills 08/28/2014 Constitutional No diaphoresis 08/28/2014 Constitutional No fatigue 08/28/2014 Constitutional No fever 08/28/2014 Eyes No eye discharge Eyes No eye erythema 09/2014 Ears/Nose/Throat/Neck No dizziness 08/28/2014 Ears/Nose/Throat/Neck No headache 08/28/2014 Ears/Nose/Throat/Neck No nasal allergies 08/28/2014 Ears/Nose/Throat/Neck No nasal discharge 08/28/2014 Ears/Nose/Throat/Neck No sore throat 08/28/2014 Ears/Nose/Throat/Neck No sinus congestion 08/28/2014 Respiratory No productive sputum 08/28/2014 Respiratory No chest congestion 08/28/2014 Respiratory No cough 09/2014 Respiratory No dyspnea 0 08/28/2014 Gastrointestinal No abdominal pain 08/28/2014 Gastrointestinal No constipation 08/28/2014 Gastrointestinal No diarrhea 08/28/2014 Gastrointestinal No nausea 08/28/2014 Gastrointestinal No vomiting 08/28/2014 Musculoskeletal No stiffness 08/28/2014 Musculoskeletal No swelling 08/28/2014 Musculoskeletal No muscle weakness 08/28/2014 Musculoskeletal No myalgias 08/28/2014 Psychiatric anxiety 01/0 09/2014 Psychiatric depression 0 08/28/2014 Constitutional No recent illness 08/28/2014 Constitutional recent illness 05/07/2014 Constitutional No anorexia 05/07/2014 Constitutional fatigue 0 05/07/2014 Constitutional No fever 05/07/2014 Constitutional No insomnia 05/07/2014 Constitutional chills Constitutional No diaphoresis 05/07/2014 Constitutional No night sweats 05/07/2014 Eyes No eye discharge Eyes No eye erythema 06/2014 Ears/Nose/Throat/Neck nasal allergies 05/07/2014 Ears/Nose/Throat/Neck nasal discharge 05/07/2014 Ears/Nose/Throat/Neck otalgia 05/07/2014 Ears/Nose/Throat/Neck sore throat 05/07/2014 Ears/Nose/Throat/Neck sinus congestion 05/07/2014 Ears/Nose/Throat/Neck No dizziness 05/07/2014 Ears/Nose/Throat/Neck No headache 05/07/2014 Cardiovascular No chest pain/pressure 05/07/2014 Cardiovascular edema 06/2014 Cardiovascular fatigue 0 05/07/2014 Gastrointestinal No abdominal pain 05/07/2014 Gastrointestinal No constipation 05/07/2014 Gastrointestinal No diarrhea 05/07/2014 Gastrointestinal No vomiting 05/07/2014 Gastrointestinal No nausea 05/07/2014 Genitourinary/Nephrology No dysuria 05/07/2014 Genitourinary/Nephrology urinary urgency 05/07/2014 Genitourinary/Nephrology urinary frequency 05/07/2014 Dermatologic No rash 06/2014 Neurologic No alteration of consciousness 05/07/2014 Psychiatric No depression 05/07/2014 Constitutional No chills 04/16/2014 Constitutional No diaphoresis 04/16/2014 Constitutional No fatigue 04/16/2014 Constitutional No fever 04/16/2014 Eyes No eye discharge Eyes No eye erythema Ears/Nose/Throat/Neck No dizziness 04/16/2014 Ears/Nose/Throat/Neck No headache 04/16/2014 Ears/Nose/Throat/Neck No nasal allergies 04/16/2014 Ears/Nose/Throat/Neck No nasal discharge 04/16/2014 Ears/Nose/Throat/Neck No sore throat 04/16/2014 Ears/Nose/Throat/Neck No sinus congestion 04/16/2014 Respiratory No productive sputum 04/16/2014 Respiratory No chest congestion 04/16/2014 Respiratory No cough Respiratory No dyspnea 0 04/16/2014 Gastrointestinal No abdominal pain 04/16/2014 Gastrointestinal No constipation 04/16/2014 Gastrointestinal No diarrhea 04/16/2014 Gastrointestinal No nausea 04/16/2014 Gastrointestinal No vomiting 04/16/2014 Musculoskeletal No stiffness 04/16/2014 Musculoskeletal No swelling 04/16/2014 Musculoskeletal No muscle weakness 04/16/2014 Musculoskeletal No myalgias 04/16/2014 Psychiatric anxiety 03/28 Psychiatric depression 0 04/16/2014 Constitutional No recent illness 01/27/2014 Constitutional No anorexia 01/27/2014 Constitutional No night sweats 01/27/2014 Constitutional No chills 01/27/2014 Constitutional No diaphoresis 01/27/2014 Constitutional fatigue 0 01/27/2014 Constitutional No fever 01/27/2014 Constitutional No insomnia 01/27/2014 Constitutional No malaise 01/27/2014 Constitutional No weight loss 01/27/2014 Constitutional No weight gain 01/27/2014 Constitutional No chills 01/21/2014 Constitutional No diaphoresis 01/21/2014 Constitutional No fatigue 01/21/2014 Constitutional No fever 01/21/2014 Eyes No eye discharge Eyes No eye erythema Ears/Nose/Throat/Neck No dizziness 01/21/2014 Ears/Nose/Throat/Neck No headache 01/21/2014 Ears/Nose/Throat/Neck No nasal allergies 01/21/2014 Ears/Nose/Throat/Neck No nasal discharge 01/21/2014 Ears/Nose/Throat/Neck No sore throat 01/21/2014 Ears/Nose/Throat/Neck No sinus congestion 01/21/2014 Respiratory No productive sputum 01/21/2014 Respiratory No chest congestion 01/21/2014 Respiratory No cough Respiratory No dyspnea 0 01/21/2014 Gastrointestinal No abdominal pain 01/21/2014 Gastrointestinal No constipation 01/21/2014 Gastrointestinal No diarrhea 01/21/2014 Gastrointestinal No nausea 01/21/2014 Gastrointestinal No vomiting 01/21/2014 Musculoskeletal No stiffness 01/21/2014 Musculoskeletal No swelling 01/21/2014 Musculoskeletal No muscle weakness 01/21/2014 Musculoskeletal No myalgias 01/21/2014 Psychiatric anxiety 12/26 Psychiatric depression 0 01/21/2014 Constitutional No recent illness 01/07/2014 Constitutional No anorexia 01/07/2014 Constitutional No night sweats 01/07/2014 Constitutional No chills 01/07/2014 Constitutional No diaphoresis 01/07/2014 Constitutional No fatigue 01/07/2014 Constitutional No fever 01/07/2014 Constitutional No insomnia 01/07/2014 Constitutional No malaise 01/07/2014 Eyes No eye discharge Eyes No eye erythema Cardiovascular No chest pain/pressure 01/07/2014 Respiratory No cough Gastrointestinal No abdominal pain 01/07/2014 Gastrointestinal No constipation 01/07/2014 Gastrointestinal No diarrhea 01/07/2014 Genitourinary/Nephrology No dysuria 01/07/2014 Dermatologic erythema Dermatologic No rash Constitutional recent illness 12/26/2013 Constitutional No anorexia 12/26/2013 Constitutional No night sweats 12/26/2013 Constitutional No chills 12/26/2013 Constitutional No diaphoresis 12/26/2013 Constitutional fatigue 0 12/26/2013 Constitutional No fever 12/26/2013 Constitutional No insomnia 12/26/2013 Constitutional No malaise 12/26/2013 Eyes No eye discharge Eyes No eye erythema 09/2013 Cardiovascular No chest pain/pressure 12/26/2013 Gastrointestinal No abdominal pain 12/26/2013 Gastrointestinal No constipation 12/26/2013 Gastrointestinal No diarrhea 12/26/2013 Genitourinary/Nephrology No dysuria 12/26/2013 Musculoskeletal No joint complaint 12/26/2013 Dermatologic No rash 09/2013 Dermatologic No sores Constitutional No recent illness 11/12/2013 Constitutional No anorexia 11/12/2013 Constitutional No night sweats 11/12/2013 Constitutional No chills 11/12/2013 Constitutional No diaphoresis 11/12/2013 Constitutional No fatigue 11/12/2013 Constitutional No fever 11/12/2013 Constitutional No insomnia 11/12/2013 Constitutional No malaise 11/12/2013 Eyes No eye discharge Eyes No eye erythema Cardiovascular No chest pain/pressure 11/12/2013 Respiratory No cough Gastrointestinal No abdominal pain 11/12/2013 Gastrointestinal No constipation 11/12/2013 Gastrointestinal No diarrhea 11/12/2013 Genitourinary/Nephrology No dysuria 11/12/2013 Dermatologic No rash Dermatologic erythema Constitutional recent illness 10/09/2013 Constitutional No anorexia 10/09/2013 Constitutional No night sweats 10/09/2013 Constitutional No chills 10/09/2013 Constitutional No fatigue 10/09/2013 Constitutional No diaphoresis 10/09/2013 Constitutional No fever 10/09/2013 Constitutional No insomnia 10/09/2013 Eyes No eye discharge Eyes No eye erythema Cardiovascular No chest pain/pressure 10/09/2013 Respiratory No productive sputum 10/09/2013 Respiratory No chest congestion 10/09/2013 Respiratory No cough Gastrointestinal No abdominal pain 10/09/2013 Gastrointestinal No constipation 10/09/2013 Gastrointestinal No diarrhea 10/09/2013 Gastrointestinal No vomiting 10/09/2013 Gastrointestinal No odynophagia 10/09/2013 Genitourinary/Nephrology No dysuria 10/09/2013 Dermatologic No rash Dermatologic No sores Constitutional No chills 04/03/2013 Constitutional No diaphoresis 04/03/2013 Constitutional No fatigue 04/03/2013 Constitutional No fever 04/03/2013 Eyes No eye discharge Eyes No eye erythema 03/2013 Ears/Nose/Throat/Neck No dizziness 04/03/2013 Ears/Nose/Throat/Neck No headache 04/03/2013 Ears/Nose/Throat/Neck No nasal allergies 04/03/2013 Ears/Nose/Throat/Neck No nasal discharge 04/03/2013 Ears/Nose/Throat/Neck No sore throat 04/03/2013 Ears/Nose/Throat/Neck No sinus congestion 04/03/2013 Respiratory No productive sputum 04/03/2013 Respiratory No chest congestion 04/03/2013 Respiratory No cough 03/2013 Respiratory No dyspnea 0 04/03/2013 Gastrointestinal No abdominal pain 04/03/2013 Gastrointestinal No constipation 04/03/2013 Gastrointestinal No diarrhea 04/03/2013 Gastrointestinal No nausea 04/03/2013 Gastrointestinal No vomiting 04/03/2013 Musculoskeletal No stiffness 04/03/2013 Musculoskeletal No swelling 04/03/2013 Musculoskeletal No muscle weakness 04/03/2013 Musculoskeletal No myalgias 04/03/2013 Psychiatric anxiety 03/2013 Psychiatric depression 0 04/03/2013 Constitutional No chills 01/06/2013 Constitutional No diaphoresis 01/06/2013 Constitutional No fatigue 01/06/2013 Constitutional No fever 01/06/2013 Eyes No eye discharge Eyes No eye erythema Ears/Nose/Throat/Neck No dizziness 01/06/2013 Ears/Nose/Throat/Neck No headache 01/06/2013 Ears/Nose/Throat/Neck No nasal allergies 01/06/2013 Ears/Nose/Throat/Neck No nasal discharge 01/06/2013 Ears/Nose/Throat/Neck No sore throat 01/06/2013 Ears/Nose/Throat/Neck No sinus congestion 01/06/2013 Respiratory No productive sputum 01/06/2013 Respiratory No chest congestion 01/06/2013 Respiratory No cough Respiratory No dyspnea 0 01/06/2013 Gastrointestinal No abdominal pain 01/06/2013 Gastrointestinal No constipation 01/06/2013 Gastrointestinal No diarrhea 01/06/2013 Gastrointestinal No nausea 01/06/2013 Gastrointestinal No vomiting 01/06/2013 Musculoskeletal No stiffness 01/06/2013 Musculoskeletal No swelling 01/06/2013 Musculoskeletal No muscle weakness 01/06/2013 Musculoskeletal No myalgias 01/06/2013 Psychiatric anxiety 0510/2012 Psychiatric depression 0 01/06/2013 Constitutional No recent illness 11/21/2012 Constitutional No anorexia 11/21/2012 Constitutional No night sweats 11/21/2012 Constitutional No fatigue 11/21/2012 Constitutional No chills 11/21/2012 Constitutional No diaphoresis 11/21/2012 Constitutional No fever 11/21/2012 Constitutional No insomnia 11/21/2012 Constitutional No malaise 11/21/2012 Eyes No eye discharge Eyes No eye erythema Ears/Nose/Throat/Neck No dizziness 11/21/2012 Ears/Nose/Throat/Neck hoarseness 11/21/2012 Ears/Nose/Throat/Neck No nasal discharge 11/21/2012 Ears/Nose/Throat/Neck No sore throat 11/21/2012 Ears/Nose/Throat/Neck No sinus congestion 11/21/2012 Cardiovascular No chest pain/pressure 11/21/2012 Gastrointestinal No abdominal pain 11/21/2012 Gastrointestinal No constipation 11/21/2012 Gastrointestinal No diarrhea 11/21/2012 Gastrointestinal No nausea 11/21/2012 Gastrointestinal No vomiting 11/21/2012 Genitourinary/Nephrology No dysuria 11/21/2012 Dermatologic No rash Dermatologic No sores Musculoskeletal No myalgias 10/28/2012 Psychiatric anxiety 03/0 11/2012 Psychiatric depression 0 10/28/2012 Constitutional No chills 10/28/2012 Constitutional No diaphoresis 10/28/2012 Constitutional No fatigue 10/28/2012 Constitutional No fever 10/28/2012 Eyes No eye discharge Eyes No eye erythema 11/2012 Ears/Nose/Throat/Neck No dizziness 10/28/2012 Ears/Nose/Throat/Neck No headache 10/28/2012 Ears/Nose/Throat/Neck No nasal allergies 10/28/2012 Ears/Nose/Throat/Neck No nasal discharge 10/28/2012 Ears/Nose/Throat/Neck No sore throat 10/28/2012 Ears/Nose/Throat/Neck No sinus congestion 10/28/2012 Respiratory No productive sputum 10/28/2012 Respiratory No chest congestion 10/28/2012 Respiratory No cough 11/2012 Respiratory No dyspnea 0 10/28/2012 Gastrointestinal No abdominal pain 10/28/2012 Gastrointestinal No constipation 10/28/2012 Gastrointestinal No diarrhea 10/28/2012 Gastrointestinal No nausea 10/28/2012 Gastrointestinal No vomiting 10/28/2012 Musculoskeletal No stiffness 10/28/2012 Musculoskeletal No swelling 10/28/2012 Musculoskeletal No muscle weakness 10/28/2012 Constitutional No chills 09/30/2012 Constitutional No diaphoresis 09/30/2012 Constitutional No fatigue 09/30/2012 Constitutional No fever 09/30/2012 Eyes No eye discharge Eyes No eye erythema 11/2012 Ears/Nose/Throat/Neck No dizziness 09/30/2012 Ears/Nose/Throat/Neck No headache 09/30/2012 Ears/Nose/Throat/Neck No nasal allergies 09/30/2012 Ears/Nose/Throat/Neck No nasal discharge 09/30/2012 Ears/Nose/Throat/Neck No sore throat 09/30/2012 Ears/Nose/Throat/Neck No sinus congestion 09/30/2012 Cardiovascular No chest pain/pressure 09/30/2012 Respiratory No productive sputum 09/30/2012 Respiratory No chest congestion 09/30/2012 Respiratory No cough 11/2012 Respiratory No dyspnea 0 09/30/2012 Gastrointestinal No abdominal pain 09/30/2012 Gastrointestinal No constipation 09/30/2012 Gastrointestinal No diarrhea 09/30/2012 Gastrointestinal No nausea 09/30/2012 Gastrointestinal No vomiting 09/30/2012 Psychiatric anxiety 02/11/2012 Psychiatric depression 0 09/30/2012 Musculoskeletal No stiffness 09/30/2012 Musculoskeletal No swelling 09/30/2012 Musculoskeletal No muscle weakness 09/30/2012 Musculoskeletal No myalgias 09/30/2012 Constitutional No chills 08/14/2012 Constitutional No diaphoresis 08/14/2012 Constitutional No fatigue 08/14/2012 Constitutional No fever 08/14/2012 Eyes No eye discharge Eyes No eye erythema Ears/Nose/Throat/Neck No dizziness 08/14/2012 Ears/Nose/Throat/Neck No headache 08/14/2012 Ears/Nose/Throat/Neck No nasal allergies 08/14/2012 Ears/Nose/Throat/Neck No nasal discharge 08/14/2012 Ears/Nose/Throat/Neck No sore throat 08/14/2012 Ears/Nose/Throat/Neck No sinus congestion 08/14/2012 Cardiovascular No chest pain/pressure 08/14/2012 Respiratory No productive sputum 08/14/2012 Respiratory No chest congestion 08/14/2012 Respiratory No cough Respiratory No dyspnea 1 10/15/2011 Gastrointestinal No abdominal pain 08/14/2012 Gastrointestinal No constipation 08/14/2012 Gastrointestinal No diarrhea 08/14/2012 Gastrointestinal No nausea 08/14/2012 Gastrointestinal No vomiting 08/14/2012 Psychiatric anxiety 07/27 Psychiatric depression 1 10/15/2011 Constitutional No chills 08/05/2012 Constitutional No diaphoresis 08/05/2012 Constitutional No fatigue 08/05/2012 Constitutional No fever 08/05/2012 Eyes No eye discharge Eyes No eye erythema 05/2012 Ears/Nose/Throat/Neck No dizziness 08/05/2012 Ears/Nose/Throat/Neck No headache 08/05/2012 Ears/Nose/Throat/Neck No nasal allergies 08/05/2012 Ears/Nose/Throat/Neck No nasal discharge 08/05/2012 Ears/Nose/Throat/Neck No sore throat 08/05/2012 Ears/Nose/Throat/Neck No sinus congestion 08/05/2012 Cardiovascular No chest pain/pressure 08/05/2012 Respiratory No productive sputum 08/05/2012 Respiratory No chest congestion 08/05/2012 Respiratory No cough 05/2012 Respiratory No dyspnea 1 10/06/2011 Gastrointestinal No abdominal pain 08/05/2012 Gastrointestinal No constipation 08/05/2012 Gastrointestinal No diarrhea 08/05/2012 Gastrointestinal No nausea 08/05/2012 Gastrointestinal No vomiting 08/05/2012 Psychiatric anxiety 07/27 Psychiatric depression 1 10/06/2011 Constitutional No chills 07/15/2012 Constitutional No diaphoresis 07/15/2012 Constitutional No fatigue 07/15/2012 Constitutional No fever 07/15/2012 Eyes No eye discharge Eyes No eye erythema Ears/Nose/Throat/Neck No dizziness 07/15/2012 Ears/Nose/Throat/Neck No headache 07/15/2012 Ears/Nose/Throat/Neck No nasal allergies 07/15/2012 Ears/Nose/Throat/Neck No nasal discharge 07/15/2012 Ears/Nose/Throat/Neck No sinus congestion 07/15/2012 Ears/Nose/Throat/Neck No sore throat 07/15/2012 Cardiovascular No chest pain/pressure 07/15/2012 Respiratory No productive sputum 07/15/2012 Respiratory No chest congestion 07/15/2012 Respiratory No cough Respiratory No dyspnea 1 09/14/2011 Gastrointestinal No abdominal pain 07/15/2012 Gastrointestinal No constipation 07/15/2012 Gastrointestinal No diarrhea 07/15/2012 Gastrointestinal No nausea 07/15/2012 Gastrointestinal No vomiting 07/15/2012 Psychiatric anxiety 06/27 Psychiatric depression 1 09/14/2011 Constitutional No recent illness 05/27/2012 Constitutional No chills 05/27/2012 Constitutional No fatigue 05/27/2012 Constitutional No fever 05/27/2012 Constitutional No insomnia 05/27/2012 Constitutional No malaise 05/27/2012 Cardiovascular No chest pain/pressure 05/27/2012 Cardiovascular No dyspnea 05/27/2012 Cardiovascular No edema 05/27/2012 Cardiovascular No exercise intolerance 05/27/2012 Cardiovascular No fatigue 05/27/2012 Cardiovascular No near-syncope/dizziness 05/27/2012 Respiratory No chest tightness 05/27/2012 Respiratory No cigarette smoking 05/27/2012 Respiratory No cough 08/2011 Respiratory No dyspnea 1 Respiratory No pedal edema 05/27/2012 Respiratory No snoring 1 Respiratory No wheezing 05/27/2012 Constitutional No insomnia 05/03/2012 Constitutional No recent illness 05/03/2012 Constitutional No anorexia 05/03/2012 Constitutional No night sweats 05/03/2012 Constitutional No chills 05/03/2012 Constitutional No diaphoresis 05/03/2012 Constitutional No fever 05/03/2012 Constitutional No fatigue 05/03/2012 Eyes No eye discharge Eyes No eye erythema 02/2012 Ears/Nose/Throat/Neck No dizziness 05/03/2012 Ears/Nose/Throat/Neck No nasal discharge 05/03/2012 Ears/Nose/Throat/Neck No sinus congestion 05/03/2012 Ears/Nose/Throat/Neck No sore throat 05/03/2012 Cardiovascular No chest pain/pressure 05/03/2012 Cardiovascular No dyspnea 05/03/2012 Respiratory No chest congestion 05/03/2012 Respiratory No cough 02/2012 Gastrointestinal No abdominal pain 05/03/2012 Gastrointestinal No constipation 05/03/2012 Gastrointestinal No diarrhea 05/03/2012 Gastrointestinal No nausea 05/03/2012 Gastrointestinal No vomiting 05/03/2012 Musculoskeletal No joint complaint 05/03/2012 Dermatologic No rash 02/2012 Cardiovascular No near-syncope/dizziness 04/23/2012 Respiratory No chest tightness 04/23/2012 Respiratory No cigarette smoking 04/23/2012 Respiratory No cough Respiratory No dyspnea 0 04/23/2012 Respiratory No pedal edema 04/23/2012 Respiratory No snoring 0 04/23/2012 Respiratory No wheezing 04/23/2012 Psychiatric No anxiety 0 04/23/2012 Psychiatric No depression 04/23/2012 Constitutional No recent illness 04/23/2012 Constitutional No chills 04/23/2012 Constitutional No fatigue 04/23/2012 Constitutional No fever 04/23/2012 Constitutional No insomnia 04/23/2012 Constitutional No malaise 04/23/2012 Cardiovascular No chest pain/pressure 04/23/2012 Cardiovascular No dyspnea 04/23/2012 Cardiovascular edema Cardiovascular No exercise intolerance 04/23/2012 Cardiovascular No fatigue 04/23/2012 Constitutional No recent illness 03/25/2012 Constitutional No anorexia 03/25/2012 Constitutional No night sweats 03/25/2012 Constitutional No chills 03/25/2012 Constitutional No diaphoresis 03/25/2012 Constitutional No fatigue 03/25/2012 Constitutional No fever 03/25/2012 Constitutional No insomnia 03/25/2012 Constitutional No malaise 03/25/2012 Eyes No eye discharge Eyes No eye erythema Ears/Nose/Throat/Neck No dizziness 03/25/2012 Ears/Nose/Throat/Neck No headache 03/25/2012 Ears/Nose/Throat/Neck No nasal discharge 03/25/2012 Respiratory No productive sputum 03/25/2012 Respiratory No chest congestion 03/25/2012 Respiratory No cough Gastrointestinal No vomiting 03/25/2012 Gastrointestinal No nausea 03/25/2012 Gastrointestinal No constipation 03/25/2012 Gastrointestinal No diarrhea 03/25/2012 Genitourinary/Nephrology No dysuria 03/25/2012 Constitutional No recent illness 03/12/2012 Constitutional No anorexia 03/12/2012 Constitutional No night sweats 03/12/2012 Constitutional No chills 03/12/2012 Constitutional No diaphoresis 03/12/2012 Constitutional No fatigue 03/12/2012 Constitutional No fever 03/12/2012 Constitutional No insomnia 03/12/2012 Constitutional No malaise 03/12/2012 Constitutional No obesity 03/12/2012 Eyes No eye discharge Eyes No eye erythema Ears/Nose/Throat/Neck No dizziness 03/12/2012 Ears/Nose/Throat/Neck No headache 03/12/2012 Ears/Nose/Throat/Neck No nasal allergies 03/12/2012 Ears/Nose/Throat/Neck No nasal discharge 03/12/2012 Ears/Nose/Throat/Neck No otalgia 03/12/2012 Respiratory No productive sputum 03/12/2012 Respiratory No chest congestion 03/12/2012 Respiratory No cough Gastrointestinal No abdominal pain 03/12/2012 Gastrointestinal No diarrhea 03/12/2012 Gastrointestinal No constipation 03/12/2012 Gastrointestinal gas and bloating 03/12/2012 Gastrointestinal No nausea 03/12/2012 Gastrointestinal No vomiting 03/12/2012 Genitourinary/Nephrology No dysuria 03/12/2012 Dermatologic No rash Dermatologic No sores Dermatologic mole change 03/12/2012 Neurologic No alteration of consciousness 03/12/2012 Constitutional No chills 01/23/2012 Constitutional No diaphoresis 01/23/2012 Constitutional No fatigue 01/23/2012 Constitutional No fever 01/23/2012 Eyes No eye discharge Eyes No eye erythema Ears/Nose/Throat/Neck No dizziness 01/23/2012 Ears/Nose/Throat/Neck No nasal allergies 01/23/2012 Ears/Nose/Throat/Neck No nasal discharge 01/23/2012 Ears/Nose/Throat/Neck No sinus congestion 01/23/2012 Ears/Nose/Throat/Neck No sore throat 01/23/2012 Respiratory No productive sputum 01/23/2012 Respiratory No chest congestion 01/23/2012 Respiratory No cough Gastrointestinal No abdominal pain 01/23/2012 Gastrointestinal No constipation 01/23/2012 Gastrointestinal No diarrhea 01/23/2012 Gastrointestinal No nausea 01/23/2012 Gastrointestinal No vomiting 01/23/2012 Psychiatric anxiety 12/26 Psychiatric depression 0 01/23/2012 Musculoskeletal No stiffness 01/23/2012 Neurologic No dizziness 01/23/2012 Constitutional No recent illness 01/12/2012 Constitutional No anorexia 01/12/2012 Constitutional No night sweats 01/12/2012 Constitutional No chills 01/12/2012 Constitutional No diaphoresis 01/12/2012 Constitutional No fatigue 01/12/2012 Constitutional No fever 01/12/2012 Constitutional No insomnia 01/12/2012 Cardiovascular No chest pain/pressure 01/12/2012 Cardiovascular No hypertension 01/12/2012 Cardiovascular No fatigue 01/12/2012 Ears/Nose/Throat/Neck No dizziness 12/25/2011 Ears/Nose/Throat/Neck No headache 12/25/2011 Ears/Nose/Throat/Neck No sore throat 12/25/2011 Respiratory No productive sputum 12/25/2011 Respiratory No chest congestion 12/25/2011 Respiratory No dyspnea 0 12/25/2011 Psychiatric anxiety 11/27 Psychiatric depression 0 12/25/2011 Musculoskeletal No stiffness 12/25/2011 Musculoskeletal arthralgia(s) 12/25/2011 Cardiovascular dyspnea 0 12/25/2011 Cardiovascular No edema 12/25/2011 Constitutional No chills 12/25/2011 Constitutional No fever 12/25/2011 Ears/Nose/Throat/Neck No nasal discharge 12/25/2011 Ears/Nose/Throat/Neck No nasal allergies 12/25/2011 Ears/Nose/Throat/Neck No sinus congestion 12/25/2011 Cardiovascular No chest pain/pressure 12/25/2011 Respiratory No cough Gastrointestinal No abdominal pain 12/25/2011 Gastrointestinal No constipation 12/25/2011 Gastrointestinal No diarrhea 12/25/2011 Gastrointestinal No vomiting 12/25/2011 Gastrointestinal No nausea 12/25/2011 Constitutional No diaphoresis 12/25/2011 Constitutional No fatigue 12/25/2011 Eyes No eye discharge Eyes No eye erythema Eyes No vision change Cardiovascular palpitations 12/04/2011 Genitourinary/Nephrology No dysuria 12/04/2011 Neurologic No alteration of consciousness 12/04/2011 Constitutional recent illness 12/04/2011 Ears/Nose/Throat/Neck No dizziness 12/04/2011 Ears/Nose/Throat/Neck No headache 12/04/2011 Cardiovascular No chest pain/pressure 12/04/2011 Respiratory No chest congestion 12/04/2011 Respiratory No cough 04/2012 Gastrointestinal No constipation 12/04/2011 Gastrointestinal No nausea 12/04/2011 Gastrointestinal No vomiting 12/04/2011 Constitutional No chills 12/04/2011 Constitutional No diaphoresis 12/04/2011 Constitutional No fatigue 12/04/2011 Constitutional No fever 12/04/2011 Eyes No eye discharge Eyes No eye erythema 04/2012 Ears/Nose/Throat/Neck No nasal allergies 12/04/2011 Ears/Nose/Throat/Neck No nasal discharge 12/04/2011 Ears/Nose/Throat/Neck No sinus congestion 12/04/2011 Ears/Nose/Throat/Neck No sore throat 12/04/2011 Respiratory No productive sputum 12/04/2011 Respiratory No dyspnea 0 12/04/2011 Gastrointestinal No abdominal pain 12/04/2011 Gastrointestinal No diarrhea 12/04/2011 Psychiatric anxiety 04/0 04/2012 Psychiatric depression 0 12/04/2011 Ears/Nose/Throat/Neck No headache 09/20/2011 Respiratory No dyspnea 0 09/20/2011 Constitutional No chills 09/20/2011 Constitutional No fever 09/20/2011 Ears/Nose/Throat/Neck No dizziness 09/20/2011 Cardiovascular No chest pain/pressure 09/20/2011 Gastrointestinal No nausea 09/20/2011 Gastrointestinal No vomiting 09/20/2011 Constitutional recent illness 09/20/2011 Constitutional No diaphoresis 09/20/2011 Constitutional No fatigue 09/20/2011 Eyes No eye discharge Eyes No eye erythema Ears/Nose/Throat/Neck No nasal allergies 09/20/2011 Ears/Nose/Throat/Neck No nasal discharge 09/20/2011 Ears/Nose/Throat/Neck No sinus congestion 09/20/2011 Ears/Nose/Throat/Neck No sore throat 09/20/2011 Respiratory No productive sputum 09/20/2011 Respiratory No chest congestion 09/20/2011 Respiratory No cough Gastrointestinal No abdominal pain 09/20/2011 Gastrointestinal No constipation 09/20/2011 Gastrointestinal No diarrhea 09/20/2011 Psychiatric anxiety 08/28 Psychiatric depression 0 09/20/2011 Constitutional recent illness 09/06/2011 Constitutional No chills 09/06/2011 Constitutional No diaphoresis 09/06/2011 Constitutional No fatigue 09/06/2011 Constitutional No fever 09/06/2011 Eyes No eye discharge Eyes No eye erythema 06/2012 Ears/Nose/Throat/Neck No dizziness 09/06/2011 Ears/Nose/Throat/Neck No nasal allergies 09/06/2011 Ears/Nose/Throat/Neck No nasal discharge 09/06/2011 Ears/Nose/Throat/Neck No sore throat 09/06/2011 Ears/Nose/Throat/Neck No sinus congestion 09/06/2011 Cardiovascular No chest pain/pressure 09/06/2011 Respiratory No productive sputum 09/06/2011 Respiratory No cough 06/2012 Respiratory No chest congestion 09/06/2011 Gastrointestinal No abdominal pain 09/06/2011 Gastrointestinal No nausea 09/06/2011 Gastrointestinal No vomiting 09/06/2011 Gastrointestinal No constipation 09/06/2011 Gastrointestinal No diarrhea 09/06/2011 Psychiatric anxiety 08/27 Psychiatric depression 0 09/06/2011 Constitutional No night sweats 08/30/2011 Constitutional No fatigue 08/30/2011 Constitutional No fever 08/30/2011 Dermatologic No rash 11/2011 Dermatologic No sores Psychiatric No anxiety 0 08/30/2011 Psychiatric No depression 08/30/2011 Gastrointestinal abdominal pain 08/30/2011 Gastrointestinal constipation 08/30/2011 Cardiovascular hypertension 08/30/2011 Cardiovascular fatigue 0 08/30/2011 Cardiovascular No chest pain/pressure 08/30/2011 Respiratory No cough 11/2011 Respiratory No chest congestion 08/30/2011 Respiratory No chest tightness 08/30/2011 Neurologic No dizziness 08/30/2011 Neurologic No headache 0 08/30/2011 Musculoskeletal No back pain 08/30/2011 Musculoskeletal arthralgia(s) 08/30/2011 Constitutional No recent illness 08/23/2011 Constitutional chills Constitutional fatigue 1 10/24/2010 Constitutional fever Eyes No eye discharge Eyes No eye erythema Ears/Nose/Throat/Neck No dizziness 08/23/2011 Ears/Nose/Throat/Neck headache 08/23/2011 Ears/Nose/Throat/Neck No hoarseness 08/23/2011 Ears/Nose/Throat/Neck nasal discharge 08/23/2011 Ears/Nose/Throat/Neck sinus congestion 08/23/2011 Ears/Nose/Throat/Neck No sore throat 08/23/2011 Cardiovascular No chest pain/pressure 08/23/2011 Respiratory No productive sputum 08/23/2011 Respiratory No cough Respiratory No dyspnea 1 10/24/2010 Gastrointestinal No abdominal pain 08/23/2011 Gastrointestinal No nausea 08/23/2011 Gastrointestinal No vomiting 08/23/2011 Gastrointestinal No constipation 08/23/2011 Gastrointestinal No diarrhea 08/23/2011 Genitourinary/Nephrology No dysuria 08/23/2011 Genitourinary/Nephrology urinary frequency 08/23/2011 Genitourinary/Nephrology urinary urgency 08/23/2011 Dermatologic No rash Constitutional No recent illness 08/09/2011 Constitutional No chills 08/09/2011 Constitutional No diaphoresis 08/09/2011 Constitutional No fatigue 08/09/2011 Constitutional No fever 08/09/2011 Constitutional No insomnia 08/09/2011 Eyes No eye discharge Eyes No eye erythema Ears/Nose/Throat/Neck No headache 08/09/2011 Cardiovascular No chest pain/pressure 08/09/2011 Genitourinary/Nephrology No breast c omplaint 08/09/2011 Genitourinary/Nephrology No dysuria 08/09/2011 Genitourinary/Nephrology No vaginal discharge 08/09/2011 Genitourinary/Nephrology No pelvic pain 08/09/2011 Dermatologic sores 08/09 Constitutional No chills 05/04/2011 Ears/Nose/Throat/Neck facial pain 05/04/2011 Ears/Nose/Throat/Neck No dizziness 05/04/2011 Cardiovascular No chest pain/pressure 05/04/2011 Cardiovascular No palpitations 05/04/2011 Respiratory No chest congestion 05/04/2011 Respiratory No chest tightness 05/04/2011 Respiratory No cough 03/2011 Genitourinary/Nephrology No urinary urgenc y 05/04/2011 Genitourinary/Nephrology No urinary frequency 05/04/2011 Genitourinary/Nephrology No urinary incontinence 05/04/2011 Musculoskeletal No back pain 05/04/2011 Dermatologic No rash 03/2011 Dermatologic No sores Neurologic No ataxia 03/2011 Neurologic No dizziness 05/04/2011 Neurologic No pain, back 05/04/2011 Psychiatric No anxiety 0 05/04/2011 Psychiatric No depression 05/04/2011 Musculoskeletal joint complaint 05/04/2011 Respiratory No chest tightness 04/19/2011 Respiratory cough 2010 Respiratory No daytime hypersomnolence 04/19/2011 Constitutional fever Constitutional chills Constitutional fatigue 0 04/19/2011 Constitutional No insomnia 04/19/2011 Eyes No eye discharge Eyes No eye pain 011 Eyes No vision change Ears/Nose/Throat/Neck No dental pain 04/19/2011 Ears/Nose/Throat/Neck No dizziness 04/19/2011 Ears/Nose/Throat/Neck No dysphagia 04/19/2011 Ears/Nose/Throat/Neck facial pain 04/19/2011 Ears/Nose/Throat/Neck headache 04/19/2011 Ears/Nose/Throat/Neck nasal allergies 04/19/2011 Ears/Nose/Throat/Neck nasal discharge 04/19/2011 Gastrointestinal No nausea 04/19/2011 Gastrointestinal No vomiting 04/19/2011 Genitourinary/Nephrology No dysuria 04/19/2011 Genitourinary/Nephrology No hematuria 04/19/2011 Genitourinary/Nephrology No urinary urgenc y 04/19/2011 Genitourinary/Nephrology No urinary frequency 04/19/2011 Dermatologic No rash Ears/Nose/Throat/Neck No neck pain 04/19/2011 Ears/Nose/Throat/Neck No otitis media 04/19/2011 Ears/Nose/Throat/Neck postnasal drip 04/19/2011 Ears/Nose/Throat/Neck sinus congestion 04/19/2011 Ears/Nose/Throat/Neck sore throat 04/19/2011 Ears/Nose/Throat/Neck No tinnitus 04/19/2011 Cardiovascular No chest pain/pressure 04/19/2011 Cardiovascular No paroxysmal nocturn al dyspnea 04/19/2011 Cardiovascular No syncope 04/19/2011 Cardiovascular No edema 04/19/2011 Respiratory asthma 04/19 Respiratory productive sputum 04/19/2011 Respiratory chest congestion 04/19/2011 Respiratory No dyspnea on exertion 04/19/2011 Respiratory No hemoptysis 04/19/2011 Respiratory wheezing Respiratory No pedal edema 04/19/2011 Gastrointestinal gastroesophageal reflux 04/19/2011 Gastrointestinal No diarrhea 04/19/2011 Gastrointestinal No constipation 04/19/2011 Ears/Nose/Throat/Neck hoarseness 04/19/2011 System Result Effective Dates Constitutional recent illness 02/05/2017 Constitutional No anorexia 02/05/2017 Constitutional No night sweats 02/05/2017 Constitutional No chills 02/05/2017 Constitutional diaphoresis 02/05/2017 Constitutional fatigue 0 02/05/2017 Constitutional No fever 02/05/2017 Constitutional No insomnia 02/05/2017 Constitutional No malaise 02/05/2017 Constitutional No weight loss 02/05/2017 Constitutional No weight gain 02/05/2017 Eyes No eye discharge Eyes No eye erythema 07/2017 Ears/Nose/Throat/Neck No dizziness 02/05/2017 Ears/Nose/Throat/Neck No headache 02/05/2017 Cardiovascular No chest pain/pressure 02/05/2017 Cardiovascular No dyspnea 02/05/2017 Cardiovascular edema 07/2017 Respiratory No productive sputum 02/05/2017 Respiratory No chest congestion 02/05/2017 Respiratory cough 2016 Gastrointestinal No abdominal pain 02/05/2017 Gastrointestinal constipation 02/05/2017 Gastrointestinal No diarrhea 02/05/2017 Gastrointestinal gastroesophageal reflux 02/05/2017 Genitourinary/Nephrology dysuria 02/05/2017 Musculoskeletal joint complaint 02/05/2017 Dermatologic No rash 07/2017 Neurologic No alteration of consciousness 02/05/2017 Psychiatric anxiety 01/25 Constitutional recent illness 02/02/2017 Constitutional No anorexia 02/02/2017 Constitutional No night sweats 02/02/2017 Constitutional No chills 02/02/2017 Constitutional diaphoresis 02/02/2017 Constitutional fatigue 0 02/02/2017 Constitutional No fever 02/02/2017 Constitutional No insomnia 02/02/2017 Constitutional No malaise 02/02/2017 Constitutional No weight loss 02/02/2017 Constitutional No weight gain 02/02/2017 Eyes No eye discharge Eyes No eye erythema 04/2017 Ears/Nose/Throat/Neck No dizziness 02/02/2017 Ears/Nose/Throat/Neck No headache 02/02/2017 Cardiovascular No chest pain/pressure 02/02/2017 Cardiovascular No dyspnea 02/02/2017 Cardiovascular edema 04/2017 Respiratory No productive sputum 02/02/2017 Respiratory No chest congestion 02/02/2017 Respiratory cough 2016 Gastrointestinal No abdominal pain 02/02/2017 Gastrointestinal constipation 02/02/2017 Gastrointestinal No diarrhea 02/02/2017 Genitourinary/Nephrology dysuria 02/02/2017 Musculoskeletal joint complaint 02/02/2017 Gastrointestinal gastroesophageal reflux 02/02/2017 Dermatologic No rash 04/2017 Neurologic No alteration of consciousness 02/02/2017 Psychiatric anxiety 06/0 04/2017 Constitutional recent illness 01/15/2017 Constitutional No anorexia 01/15/2017 Constitutional No chills 01/15/2017 Constitutional No night sweats 01/15/2017 Constitutional No fatigue 01/15/2017 Constitutional No diaphoresis 01/15/2017 Constitutional No fever 01/15/2017 Constitutional No insomnia 01/15/2017 Constitutional No weight gain 01/15/2017 Constitutional No weight loss 01/15/2017 Constitutional No malaise 01/15/2017 Eyes No eye discharge Eyes No eye erythema Ears/Nose/Throat/Neck nasal allergies 01/15/2017 Ears/Nose/Throat/Neck nasal discharge 01/15/2017 Ears/Nose/Throat/Neck sinus congestion 01/15/2017 Ears/Nose/Throat/Neck No sore throat 01/15/2017 Cardiovascular No chest pain/pressure 01/15/2017 Cardiovascular No edema 01/15/2017 Respiratory productive sputum 01/15/2017 Respiratory chest congestion 01/15/2017 Respiratory cough 2016 Gastrointestinal No abdominal pain 01/15/2017 Musculoskeletal joint complaint 01/15/2017 Dermatologic No rash Neurologic No alteration of consciousness 01/15/2017 Constitutional No recent illness 01/04/2017 Constitutional No chills 01/04/2017 Constitutional No diaphoresis 01/04/2017 Constitutional No fatigue 01/04/2017 Constitutional No fever 01/04/2017 Constitutional insomnia 01/04/2017 Constitutional No malaise 01/04/2017 Eyes No eye discharge Eyes No eye erythema 06/2017 Ears/Nose/Throat/Neck No dizziness 01/04/2017 Ears/Nose/Throat/Neck No headache 01/04/2017 Ears/Nose/Throat/Neck No nasal allergies 01/04/2017 Ears/Nose/Throat/Neck No nasal discharge 01/04/2017 Ears/Nose/Throat/Neck No sore throat 01/04/2017 Ears/Nose/Throat/Neck No sinus congestion 01/04/2017 Cardiovascular No chest pain/pressure 01/04/2017 Cardiovascular No dyspnea 01/04/2017 Cardiovascular edema 06/2017 Cardiovascular No exercise intolerance 01/04/2017 Cardiovascular No fatigue 01/04/2017 Cardiovascular hypertension 01/04/2017 Respiratory No productive sputum 01/04/2017 Respiratory No chest congestion 01/04/2017 Respiratory No cough 06/2017 Respiratory dyspnea on exertion 01/04/2017 Respiratory No dyspnea 0 01/04/2017 Gastrointestinal No abdominal pain 01/04/2017 Gastrointestinal No constipation 01/04/2017 Gastrointestinal No nausea 01/04/2017 Gastrointestinal No vomiting 01/04/2017 Genitourinary/Nephrology No dysuria 01/04/2017 Musculoskeletal No stiffness 01/04/2017 Musculoskeletal No swelling 01/04/2017 Musculoskeletal joint complaint 01/04/2017 Musculoskeletal No muscle weakness 01/04/2017 Musculoskeletal No myalgias 01/04/2017 Dermatologic No rash 06/2017 Dermatologic No scar 06/2017 Neurologic No dizziness 01/04/2017 Neurologic No headache 0 01/04/2017 Neurologic No neck pain 01/04/2017 Neurologic No syncope Psychiatric anxiety 12/25 Psychiatric depression 0 01/04/2017 Constitutional No recent illness 09/07/2016 Constitutional No chills 09/07/2016 Constitutional No diaphoresis 09/07/2016 Constitutional No fatigue 09/07/2016 Constitutional No fever 09/07/2016 Constitutional insomnia 09/07/2016 Constitutional No malaise 09/07/2016 Eyes No eye discharge Eyes No eye erythema 07/2017 Ears/Nose/Throat/Neck No dizziness 09/07/2016 Ears/Nose/Throat/Neck No headache 09/07/2016 Ears/Nose/Throat/Neck No nasal allergies 09/07/2016 Ears/Nose/Throat/Neck No nasal discharge 09/07/2016 Ears/Nose/Throat/Neck No sore throat 09/07/2016 Ears/Nose/Throat/Neck No sinus congestion 09/07/2016 Cardiovascular No chest pain/pressure 09/07/2016 Cardiovascular No dyspnea 09/07/2016 Cardiovascular edema 07/2017 Cardiovascular No exercise intolerance 09/07/2016 Cardiovascular No fatigue 09/07/2016 Cardiovascular hypertension 09/07/2016 Respiratory No productive sputum 09/07/2016 Respiratory No chest congestion 09/07/2016 Respiratory No cough 07/2017 Respiratory dyspnea on exertion 09/07/2016 Respiratory No dyspnea 0 09/07/2016 Gastrointestinal No abdominal pain 09/07/2016 Gastrointestinal No constipation 09/07/2016 Gastrointestinal No nausea 09/07/2016 Gastrointestinal No vomiting 09/07/2016 Genitourinary/Nephrology No dysuria 09/07/2016 Musculoskeletal No stiffness 09/07/2016 Musculoskeletal No swelling 09/07/2016 Musculoskeletal joint complaint 09/07/2016 Musculoskeletal No muscle weakness 09/07/2016 Musculoskeletal No myalgias 09/07/2016 Dermatologic No rash 07/2017 Dermatologic No scar 07/2017 Neurologic No dizziness 09/07/2016 Neurologic No headache 0 09/07/2016 Neurologic No neck pain 09/07/2016 Neurologic No syncope Psychiatric anxiety 08/27 Psychiatric depression 0 09/07/2016 Constitutional No recent illness 07/06/2016 Constitutional No chills 07/06/2016 Constitutional No diaphoresis 07/06/2016 Constitutional No fatigue 07/06/2016 Constitutional No fever 07/06/2016 Constitutional insomnia 07/06/2016 Constitutional No malaise 07/06/2016 Eyes No eye discharge Eyes No eye erythema 05/2016 Ears/Nose/Throat/Neck No dizziness 07/06/2016 Ears/Nose/Throat/Neck No headache 07/06/2016 Ears/Nose/Throat/Neck No nasal allergies 07/06/2016 Ears/Nose/Throat/Neck No nasal discharge 07/06/2016 Ears/Nose/Throat/Neck No sore throat 07/06/2016 Ears/Nose/Throat/Neck No sinus congestion 07/06/2016 Cardiovascular No chest pain/pressure 07/06/2016 Cardiovascular No dyspnea 07/06/2016 Cardiovascular edema 05/2016 Cardiovascular No exercise intolerance 07/06/2016 Cardiovascular No fatigue 07/06/2016 Cardiovascular hypertension 07/06/2016 Respiratory No productive sputum 07/06/2016 Respiratory No chest congestion 07/06/2016 Respiratory No cough 05/2016 Respiratory dyspnea on exertion 07/06/2016 Respiratory No dyspnea 1 09/05/2015 Gastrointestinal No abdominal pain 07/06/2016 Gastrointestinal No constipation 07/06/2016 Gastrointestinal diarrhea 07/06/2016 Gastrointestinal No nausea 07/06/2016 Gastrointestinal No vomiting 07/06/2016 Genitourinary/Nephrology No dysuria 07/06/2016 Musculoskeletal No stiffness 07/06/2016 Musculoskeletal No swelling 07/06/2016 Musculoskeletal joint complaint 07/06/2016 Musculoskeletal No muscle weakness 07/06/2016 Musculoskeletal No myalgias 07/06/2016 Dermatologic No rash 05/2016 Dermatologic No scar 05/2016 Neurologic No dizziness 07/06/2016 Neurologic No headache 1 09/05/2015 Neurologic No neck pain 07/06/2016 Neurologic No syncope Psychiatric anxiety 06/27 Psychiatric depression 1 09/05/2015 Constitutional No recent illness 06/08/2016 Constitutional No chills 06/08/2016 Constitutional No diaphoresis 06/08/2016 Constitutional No fatigue 06/08/2016 Constitutional No fever 06/08/2016 Constitutional insomnia 06/08/2016 Constitutional No malaise 06/08/2016 Eyes No eye discharge Eyes No eye erythema Ears/Nose/Throat/Neck No dizziness 06/08/2016 Ears/Nose/Throat/Neck No headache 06/08/2016 Ears/Nose/Throat/Neck No nasal allergies 06/08/2016 Ears/Nose/Throat/Neck No nasal discharge 06/08/2016 Ears/Nose/Throat/Neck No sore throat 06/08/2016 Ears/Nose/Throat/Neck No sinus congestion 06/08/2016 Cardiovascular No chest pain/pressure 06/08/2016 Cardiovascular No dyspnea 06/08/2016 Cardiovascular edema Cardiovascular No exercise intolerance 06/08/2016 Cardiovascular No fatigue 06/08/2016 Cardiovascular hypertension 06/08/2016 Respiratory No productive sputum 06/08/2016 Respiratory No chest congestion 06/08/2016 Respiratory No cough Respiratory dyspnea on exertion 06/08/2016 Respiratory No dyspnea 1 Gastrointestinal No abdominal pain 06/08/2016 Gastrointestinal No constipation 06/08/2016 Gastrointestinal diarrhea 06/08/2016 Gastrointestinal No nausea 06/08/2016 Gastrointestinal No vomiting 06/08/2016 Genitourinary/Nephrology No dysuria 06/08/2016 Musculoskeletal No stiffness 06/08/2016 Musculoskeletal No swelling 06/08/2016 Musculoskeletal joint complaint 06/08/2016 Musculoskeletal No muscle weakness 06/08/2016 Musculoskeletal No myalgias 06/08/2016 Dermatologic No rash Dermatologic No scar Neurologic No dizziness 06/08/2016 Neurologic No headache 1 Neurologic No neck pain 06/08/2016 Neurologic No syncope Psychiatric anxiety 05/27 Psychiatric depression 1 Constitutional No recent illness 04/06/2016 Constitutional No anorexia 04/06/2016 Constitutional No night sweats 04/06/2016 Constitutional No chills 04/06/2016 Constitutional No diaphoresis 04/06/2016 Constitutional No fatigue 04/06/2016 Constitutional No fever 04/06/2016 Constitutional insomnia 04/06/2016 Constitutional No malaise 04/06/2016 Constitutional No weight loss 04/06/2016 Constitutional No weight gain 04/06/2016 Eyes No eye discharge Eyes No eye erythema 06/2016 Ears/Nose/Throat/Neck No dizziness 04/06/2016 Ears/Nose/Throat/Neck No headache 04/06/2016 Ears/Nose/Throat/Neck No nasal allergies 04/06/2016 Ears/Nose/Throat/Neck No nasal discharge 04/06/2016 Ears/Nose/Throat/Neck No sinus congestion 04/06/2016 Ears/Nose/Throat/Neck No sore throat 04/06/2016 Cardiovascular No chest pain/pressure 04/06/2016 Cardiovascular No dyspnea 04/06/2016 Cardiovascular edema 06/2016 Cardiovascular No exercise intolerance 04/06/2016 Cardiovascular No fatigue 04/06/2016 Cardiovascular hypertension 04/06/2016 Respiratory No productive sputum 04/06/2016 Respiratory No chest congestion 04/06/2016 Respiratory No cough 06/2016 Respiratory dyspnea on exertion 04/06/2016 Respiratory No dyspnea 0 04/06/2016 Gastrointestinal No abdominal pain 04/06/2016 Gastrointestinal No constipation 04/06/2016 Gastrointestinal diarrhea 04/06/2016 Gastrointestinal No nausea 04/06/2016 Gastrointestinal No vomiting 04/06/2016 Genitourinary/Nephrology No dysuria 04/06/2016 Musculoskeletal No stiffness 04/06/2016 Musculoskeletal No swelling 04/06/2016 Musculoskeletal joint complaint 04/06/2016 Musculoskeletal No muscle weakness 04/06/2016 Musculoskeletal No myalgias 04/06/2016 Dermatologic No rash 06/2016 Dermatologic No scar 06/2016 Neurologic No dizziness 04/06/2016 Neurologic No headache 0 04/06/2016 Neurologic No neck pain 04/06/2016 Neurologic No syncope Psychiatric anxiety 03/27 Psychiatric depression 0 04/06/2016 Constitutional No chills 03/09/2016 Constitutional No diaphoresis 03/09/2016 Constitutional No fatigue 03/09/2016 Constitutional No fever 03/09/2016 Eyes No eye discharge Eyes No eye erythema Ears/Nose/Throat/Neck No dizziness 03/09/2016 Ears/Nose/Throat/Neck No headache 03/09/2016 Ears/Nose/Throat/Neck No nasal allergies 03/09/2016 Ears/Nose/Throat/Neck No nasal discharge 03/09/2016 Ears/Nose/Throat/Neck No sore throat 03/09/2016 Ears/Nose/Throat/Neck No sinus congestion 03/09/2016 Cardiovascular No chest pain/pressure 03/09/2016 Cardiovascular No dyspnea 03/09/2016 Cardiovascular edema Cardiovascular No exercise intolerance 03/09/2016 Cardiovascular No fatigue 03/09/2016 Cardiovascular hypertension 03/09/2016 Respiratory No productive sputum 03/09/2016 Respiratory No chest congestion 03/09/2016 Respiratory No cough Respiratory No dyspnea 0 03/09/2016 Gastrointestinal No abdominal pain 03/09/2016 Gastrointestinal No constipation 03/09/2016 Gastrointestinal diarrhea 03/09/2016 Gastrointestinal No nausea 03/09/2016 Gastrointestinal No vomiting 03/09/2016 Musculoskeletal No stiffness 03/09/2016 Musculoskeletal No swelling 03/09/2016 Musculoskeletal No muscle weakness 03/09/2016 Musculoskeletal No myalgias 03/09/2016 Dermatologic No rash Dermatologic No scar Neurologic No dizziness 03/09/2016 Neurologic No headache 0 03/09/2016 Neurologic No neck pain 03/09/2016 Neurologic No syncope Psychiatric anxiety 02/24 Psychiatric depression 0 03/09/2016 Constitutional No recent illness 03/09/2016 Constitutional No anorexia 03/09/2016 Constitutional No night sweats 03/09/2016 Constitutional insomnia 03/09/2016 Constitutional No malaise 03/09/2016 Constitutional No weight loss 03/09/2016 Constitutional No weight gain 03/09/2016 Genitourinary/Nephrology No dysuria 03/09/2016 Respiratory dyspnea on exertion 03/09/2016 Musculoskeletal joint complaint 03/09/2016 Constitutional No chills 01/18/2016 Constitutional No diaphoresis 01/18/2016 Constitutional No fatigue 01/18/2016 Constitutional No fever 01/18/2016 Eyes No eye discharge Eyes No eye erythema Ears/Nose/Throat/Neck No dizziness 01/18/2016 Ears/Nose/Throat/Neck No headache 01/18/2016 Ears/Nose/Throat/Neck No nasal allergies 01/18/2016 Ears/Nose/Throat/Neck No nasal discharge 01/18/2016 Ears/Nose/Throat/Neck No sore throat 01/18/2016 Ears/Nose/Throat/Neck No sinus congestion 01/18/2016 Cardiovascular No chest pain/pressure 01/18/2016 Cardiovascular No dyspnea 01/18/2016 Cardiovascular edema Cardiovascular No exercise intolerance 01/18/2016 Cardiovascular No fatigue 01/18/2016 Cardiovascular hypertension 01/18/2016 Respiratory No productive sputum 01/18/2016 Respiratory No chest congestion 01/18/2016 Respiratory No cough Respiratory No dyspnea 0 01/18/2016 Gastrointestinal No abdominal pain 01/18/2016 Gastrointestinal No constipation 01/18/2016 Gastrointestinal No diarrhea 01/18/2016 Gastrointestinal No nausea 01/18/2016 Gastrointestinal No vomiting 01/18/2016 Musculoskeletal No stiffness 01/18/2016 Musculoskeletal No swelling 01/18/2016 Musculoskeletal No muscle weakness 01/18/2016 Musculoskeletal No myalgias 01/18/2016 Dermatologic No rash Dermatologic No scar Neurologic No dizziness 01/18/2016 Neurologic No headache 0 01/18/2016 Neurologic No neck pain 01/18/2016 Neurologic No syncope Psychiatric anxiety 12/26 Psychiatric depression 0 01/18/2016 Constitutional No recent illness 09/09/2015 Constitutional No anorexia 09/09/2015 Constitutional No night sweats 09/09/2015 Constitutional No chills 09/09/2015 Constitutional No diaphoresis 09/09/2015 Constitutional No fatigue 09/09/2015 Constitutional No fever 09/09/2015 Constitutional No insomnia 09/09/2015 Constitutional No malaise 09/09/2015 Constitutional No weight loss 09/09/2015 Constitutional No weight gain 09/09/2015 Constitutional No obesity 09/09/2015 Respiratory dyspnea 08/27 Respiratory dyspnea on exertion 09/09/2015 Respiratory cough 2015 Respiratory No cigarette smoking 09/09/2015 Respiratory No chest tightness 09/09/2015 Respiratory No chest congestion 09/09/2015 Respiratory No snoring 0 09/09/2015 Cardiovascular No chest pain/pressure 09/09/2015 Ears/Nose/Throat/Neck No oral pain 09/09/2015 Ears/Nose/Throat/Neck No otitis media 09/09/2015 Ears/Nose/Throat/Neck No otalgia 09/09/2015 Ears/Nose/Throat/Neck nasal allergies 09/09/2015 Ears/Nose/Throat/Neck nasal discharge 09/09/2015 Ears/Nose/Throat/Neck No sore throat 09/09/2015 Ears/Nose/Throat/Neck No postnasal drip 09/09/2015 Gastrointestinal abdominal pain 09/09/2015 Gastrointestinal constipation 09/09/2015 Gastrointestinal diarrhea 09/09/2015 Genitourinary/Nephrology No dysuria 09/09/2015 Genitourinary/Nephrology No urinary incontinence 09/09/2015 Genitourinary/Nephrology No urinary frequency 09/09/2015 Genitourinary/Nephrology No urinary urgenc y 09/09/2015 Musculoskeletal joint complaint 09/09/2015 Musculoskeletal back pain 09/09/2015 Musculoskeletal myalgias 09/09/2015 Dermatologic No rash Dermatologic No sores Psychiatric anxiety 08/27 Psychiatric No depression 09/09/2015 Ears/Nose/Throat/Neck No dizziness 09/09/2015 Ears/Nose/Throat/Neck No headache 09/09/2015 Constitutional No insomnia 12/25/2014 Cardiovascular No chest pain/pressure 12/25/2014 Cardiovascular edema 08/2014 Respiratory dyspnea on exertion 12/25/2014 Respiratory No cough 08/2014 Respiratory No chest tightness 12/25/2014 Gastrointestinal No diarrhea 12/25/2014 Gastrointestinal No abdominal pain 12/25/2014 Genitourinary/Nephrology No dysuria 12/25/2014 Constitutional No recent illness 12/25/2014 Constitutional No chills 12/25/2014 Constitutional No diaphoresis 12/25/2014 Constitutional No fatigue 12/25/2014 Constitutional No fever 12/25/2014 Eyes No eye discharge Eyes No eye erythema 08/2014 Ears/Nose/Throat/Neck No dizziness 12/25/2014 Ears/Nose/Throat/Neck No headache 12/25/2014 Ears/Nose/Throat/Neck No nasal allergies 12/25/2014 Ears/Nose/Throat/Neck No nasal discharge 12/25/2014 Ears/Nose/Throat/Neck No sore throat 12/25/2014 Ears/Nose/Throat/Neck No sinus congestion 12/25/2014 Respiratory No productive sputum 12/25/2014 Respiratory No chest congestion 12/25/2014 Respiratory No dyspnea 0 12/25/2014 Gastrointestinal No constipation 12/25/2014 Gastrointestinal No nausea 12/25/2014 Gastrointestinal No vomiting 12/25/2014 Musculoskeletal No stiffness 12/25/2014 Musculoskeletal No swelling 12/25/2014 Musculoskeletal No muscle weakness 12/25/2014 Musculoskeletal No myalgias 12/25/2014 Psychiatric anxiety 05/0 08/2014 Psychiatric depression 0 12/25/2014 Constitutional No chills 10/13/2014 Constitutional No diaphoresis 10/13/2014 Constitutional No fatigue 10/13/2014 Constitutional No fever 10/13/2014 Eyes No eye discharge Eyes No eye erythema Ears/Nose/Throat/Neck No dizziness 10/13/2014 Ears/Nose/Throat/Neck No headache 10/13/2014 Ears/Nose/Throat/Neck No nasal allergies 10/13/2014 Ears/Nose/Throat/Neck No nasal discharge 10/13/2014 Ears/Nose/Throat/Neck No sore throat 10/13/2014 Ears/Nose/Throat/Neck No sinus congestion 10/13/2014 Respiratory No productive sputum 10/13/2014 Respiratory No chest congestion 10/13/2014 Respiratory No cough Respiratory No dyspnea 0 10/13/2014 Gastrointestinal No abdominal pain 10/13/2014 Gastrointestinal No constipation 10/13/2014 Gastrointestinal No diarrhea 10/13/2014 Gastrointestinal No nausea 10/13/2014 Gastrointestinal No vomiting 10/13/2014 Musculoskeletal No stiffness 10/13/2014 Musculoskeletal No swelling 10/13/2014 Musculoskeletal No muscle weakness 10/13/2014 Musculoskeletal No myalgias 10/13/2014 Psychiatric anxiety 09/27 Psychiatric depression 0 10/13/2014 Dermatologic No rash Dermatologic No scar Neurologic No dizziness 10/13/2014 Neurologic No headache 0 10/13/2014 Neurologic No neck pain 10/13/2014 Neurologic No syncope Cardiovascular No chest pain/pressure 10/13/2014 Cardiovascular No dyspnea 10/13/2014 Cardiovascular edema Cardiovascular No exercise intolerance 10/13/2014 Cardiovascular No fatigue 10/13/2014 Cardiovascular hypertension 10/13/2014 Constitutional No chills 08/28/2014 Constitutional No diaphoresis 08/28/2014 Constitutional No fatigue 08/28/2014 Constitutional No fever 08/28/2014 Eyes No eye discharge Eyes No eye erythema 09/2014 Ears/Nose/Throat/Neck No dizziness 08/28/2014 Ears/Nose/Throat/Neck No headache 08/28/2014 Ears/Nose/Throat/Neck No nasal allergies 08/28/2014 Ears/Nose/Throat/Neck No nasal discharge 08/28/2014 Ears/Nose/Throat/Neck No sore throat 08/28/2014 Ears/Nose/Throat/Neck No sinus congestion 08/28/2014 Respiratory No productive sputum 08/28/2014 Respiratory No chest congestion 08/28/2014 Respiratory No cough 09/2014 Respiratory No dyspnea 0 08/28/2014 Gastrointestinal No abdominal pain 08/28/2014 Gastrointestinal No constipation 08/28/2014 Gastrointestinal No diarrhea 08/28/2014 Gastrointestinal No nausea 08/28/2014 Gastrointestinal No vomiting 08/28/2014 Musculoskeletal No stiffness 08/28/2014 Musculoskeletal No swelling 08/28/2014 Musculoskeletal No muscle weakness 08/28/2014 Musculoskeletal No myalgias 08/28/2014 Psychiatric anxiety /0 09/2014 Psychiatric depression 0 08/28/2014 Constitutional No recent illness 08/28/2014 Constitutional recent illness 05/07/2014 Constitutional No anorexia 05/07/2014 Constitutional fatigue 0 05/07/2014 Constitutional No fever 05/07/2014 Constitutional No insomnia 05/07/2014 Constitutional chills Constitutional No diaphoresis 05/07/2014 Constitutional No night sweats 05/07/2014 Eyes No eye discharge Eyes No eye erythema 06/2014 Ears/Nose/Throat/Neck nasal allergies 05/07/2014 Ears/Nose/Throat/Neck nasal discharge 05/07/2014 Ears/Nose/Throat/Neck otalgia 05/07/2014 Ears/Nose/Throat/Neck sore throat 05/07/2014 Ears/Nose/Throat/Neck sinus congestion 05/07/2014 Ears/Nose/Throat/Neck No dizziness 05/07/2014 Ears/Nose/Throat/Neck No headache 05/07/2014 Cardiovascular No chest pain/pressure 05/07/2014 Cardiovascular edema 06/2014 Cardiovascular fatigue 0 05/07/2014 Gastrointestinal No abdominal pain 05/07/2014 Gastrointestinal No constipation 05/07/2014 Gastrointestinal No diarrhea 05/07/2014 Gastrointestinal No vomiting 05/07/2014 Gastrointestinal No nausea 05/07/2014 Genitourinary/Nephrology No dysuria 05/07/2014 Genitourinary/Nephrology urinary urgency 05/07/2014 Genitourinary/Nephrology urinary frequency 05/07/2014 Dermatologic No rash 06/2014 Neurologic No alteration of consciousness 05/07/2014 Psychiatric No depression 05/07/2014 Constitutional No chills 04/16/2014 Constitutional No diaphoresis 04/16/2014 Constitutional No fatigue 04/16/2014 Constitutional No fever 04/16/2014 Eyes No eye discharge Eyes No eye erythema Ears/Nose/Throat/Neck No dizziness 04/16/2014 Ears/Nose/Throat/Neck No headache 04/16/2014 Ears/Nose/Throat/Neck No nasal allergies 04/16/2014 Ears/Nose/Throat/Neck No nasal discharge 04/16/2014 Ears/Nose/Throat/Neck No sore throat 04/16/2014 Ears/Nose/Throat/Neck No sinus congestion 04/16/2014 Respiratory No productive sputum 04/16/2014 Respiratory No chest congestion 04/16/2014 Respiratory No cough Respiratory No dyspnea 0 04/16/2014 Gastrointestinal No abdominal pain 04/16/2014 Gastrointestinal No constipation 04/16/2014 Gastrointestinal No diarrhea 04/16/2014 Gastrointestinal No nausea 04/16/2014 Gastrointestinal No vomiting 04/16/2014 Musculoskeletal No stiffness 04/16/2014 Musculoskeletal No swelling 04/16/2014 Musculoskeletal No muscle weakness 04/16/2014 Musculoskeletal No myalgias 04/16/2014 Psychiatric anxiety 03/28 Psychiatric depression 0 04/16/2014 Constitutional No recent illness 01/27/2014 Constitutional No anorexia 01/27/2014 Constitutional No night sweats 01/27/2014 Constitutional No chills 01/27/2014 Constitutional No diaphoresis 01/27/2014 Constitutional fatigue 0 01/27/2014 Constitutional No fever 01/27/2014 Constitutional No insomnia 01/27/2014 Constitutional No malaise 01/27/2014 Constitutional No weight loss 01/27/2014 Constitutional No weight gain 01/27/2014 Constitutional No chills 01/21/2014 Constitutional No diaphoresis 01/21/2014 Constitutional No fatigue 01/21/2014 Constitutional No fever 01/21/2014 Eyes No eye discharge Eyes No eye erythema Ears/Nose/Throat/Neck No dizziness 01/21/2014 Ears/Nose/Throat/Neck No headache 01/21/2014 Ears/Nose/Throat/Neck No nasal allergies 01/21/2014 Ears/Nose/Throat/Neck No nasal discharge 01/21/2014 Ears/Nose/Throat/Neck No sore throat 01/21/2014 Ears/Nose/Throat/Neck No sinus congestion 01/21/2014 Respiratory No productive sputum 01/21/2014 Respiratory No chest congestion 01/21/2014 Respiratory No cough Respiratory No dyspnea 0 01/21/2014 Gastrointestinal No abdominal pain 01/21/2014 Gastrointestinal No constipation 01/21/2014 Gastrointestinal No diarrhea 01/21/2014 Gastrointestinal No nausea 01/21/2014 Gastrointestinal No vomiting 01/21/2014 Musculoskeletal No stiffness 01/21/2014 Musculoskeletal No swelling 01/21/2014 Musculoskeletal No muscle weakness 01/21/2014 Musculoskeletal No myalgias 01/21/2014 Psychiatric anxiety 12/26 Psychiatric depression 0 01/21/2014 Constitutional No recent illness 01/07/2014 Constitutional No anorexia 01/07/2014 Constitutional No night sweats 01/07/2014 Constitutional No chills 01/07/2014 Constitutional No diaphoresis 01/07/2014 Constitutional No fatigue 01/07/2014 Constitutional No fever 01/07/2014 Constitutional No insomnia 01/07/2014 Constitutional No malaise 01/07/2014 Eyes No eye discharge Eyes No eye erythema Cardiovascular No chest pain/pressure 01/07/2014 Respiratory No cough Gastrointestinal No abdominal pain 01/07/2014 Gastrointestinal No constipation 01/07/2014 Gastrointestinal No diarrhea 01/07/2014 Genitourinary/Nephrology No dysuria 01/07/2014 Dermatologic erythema Dermatologic No rash Constitutional recent illness 12/26/2013 Constitutional No anorexia 12/26/2013 Constitutional No night sweats 12/26/2013 Constitutional No chills 12/26/2013 Constitutional No diaphoresis 12/26/2013 Constitutional fatigue 0 12/26/2013 Constitutional No fever 12/26/2013 Constitutional No insomnia 12/26/2013 Constitutional No malaise 12/26/2013 Eyes No eye discharge Eyes No eye erythema 09/2013 Cardiovascular No chest pain/pressure 12/26/2013 Gastrointestinal No abdominal pain 12/26/2013 Gastrointestinal No constipation 12/26/2013 Gastrointestinal No diarrhea 12/26/2013 Genitourinary/Nephrology No dysuria 12/26/2013 Musculoskeletal No joint complaint 12/26/2013 Dermatologic No rash 09/2013 Dermatologic No sores Constitutional No recent illness 11/12/2013 Constitutional No anorexia 11/12/2013 Constitutional No night sweats 11/12/2013 Constitutional No chills 11/12/2013 Constitutional No diaphoresis 11/12/2013 Constitutional No fatigue 11/12/2013 Constitutional No fever 11/12/2013 Constitutional No insomnia 11/12/2013 Constitutional No malaise 11/12/2013 Eyes No eye discharge Eyes No eye erythema Cardiovascular No chest pain/pressure 11/12/2013 Respiratory No cough Gastrointestinal No abdominal pain 11/12/2013 Gastrointestinal No constipation 11/12/2013 Gastrointestinal No diarrhea 11/12/2013 Genitourinary/Nephrology No dysuria 11/12/2013 Dermatologic No rash Dermatologic erythema Constitutional recent illness 10/09/2013 Constitutional No anorexia 10/09/2013 Constitutional No night sweats 10/09/2013 Constitutional No chills 10/09/2013 Constitutional No fatigue 10/09/2013 Constitutional No diaphoresis 10/09/2013 Constitutional No fever 10/09/2013 Constitutional No insomnia 10/09/2013 Eyes No eye discharge Eyes No eye erythema Cardiovascular No chest pain/pressure 10/09/2013 Respiratory No productive sputum 10/09/2013 Respiratory No chest congestion 10/09/2013 Respiratory No cough Gastrointestinal No abdominal pain 10/09/2013 Gastrointestinal No constipation 10/09/2013 Gastrointestinal No diarrhea 10/09/2013 Gastrointestinal No vomiting 10/09/2013 Gastrointestinal No odynophagia 10/09/2013 Genitourinary/Nephrology No dysuria 10/09/2013 Dermatologic No rash Dermatologic No sores Constitutional No chills 04/03/2013 Constitutional No diaphoresis 04/03/2013 Constitutional No fatigue 04/03/2013 Constitutional No fever 04/03/2013 Eyes No eye discharge Eyes No eye erythema 03/2013 Ears/Nose/Throat/Neck No dizziness 04/03/2013 Ears/Nose/Throat/Neck No headache 04/03/2013 Ears/Nose/Throat/Neck No nasal allergies 04/03/2013 Ears/Nose/Throat/Neck No nasal discharge 04/03/2013 Ears/Nose/Throat/Neck No sore throat 04/03/2013 Ears/Nose/Throat/Neck No sinus congestion 04/03/2013 Respiratory No productive sputum 04/03/2013 Respiratory No chest congestion 04/03/2013 Respiratory No cough 03/2013 Respiratory No dyspnea 0 04/03/2013 Gastrointestinal No abdominal pain 04/03/2013 Gastrointestinal No constipation 04/03/2013 Gastrointestinal No diarrhea 04/03/2013 Gastrointestinal No nausea 04/03/2013 Gastrointestinal No vomiting 04/03/2013 Musculoskeletal No stiffness 04/03/2013 Musculoskeletal No swelling 04/03/2013 Musculoskeletal No muscle weakness 04/03/2013 Musculoskeletal No myalgias 04/03/2013 Psychiatric anxiety 0803/2013 Psychiatric depression 0 04/03/2013 Constitutional No chills 01/06/2013 Constitutional No diaphoresis 01/06/2013 Constitutional No fatigue 01/06/2013 Constitutional No fever 01/06/2013 Eyes No eye discharge Eyes No eye erythema Ears/Nose/Throat/Neck No dizziness 01/06/2013 Ears/Nose/Throat/Neck No headache 01/06/2013 Ears/Nose/Throat/Neck No nasal allergies 01/06/2013 Ears/Nose/Throat/Neck No nasal discharge 01/06/2013 Ears/Nose/Throat/Neck No sore throat 01/06/2013 Ears/Nose/Throat/Neck No sinus congestion 01/06/2013 Respiratory No productive sputum 01/06/2013 Respiratory No chest congestion 01/06/2013 Respiratory No cough Respiratory No dyspnea 0 01/06/2013 Gastrointestinal No abdominal pain 01/06/2013 Gastrointestinal No constipation 01/06/2013 Gastrointestinal No diarrhea 01/06/2013 Gastrointestinal No nausea 01/06/2013 Gastrointestinal No vomiting 01/06/2013 Musculoskeletal No stiffness 01/06/2013 Musculoskeletal No swelling 01/06/2013 Musculoskeletal No muscle weakness 01/06/2013 Musculoskeletal No myalgias 01/06/2013 Psychiatric anxiety 12/25 Psychiatric depression 0 01/06/2013 Constitutional No recent illness 11/21/2012 Constitutional No anorexia 11/21/2012 Constitutional No night sweats 11/21/2012 Constitutional No fatigue 11/21/2012 Constitutional No chills 11/21/2012 Constitutional No diaphoresis 11/21/2012 Constitutional No fever 11/21/2012 Constitutional No insomnia 11/21/2012 Constitutional No malaise 11/21/2012 Eyes No eye discharge Eyes No eye erythema Ears/Nose/Throat/Neck No dizziness 11/21/2012 Ears/Nose/Throat/Neck hoarseness 11/21/2012 Ears/Nose/Throat/Neck No nasal discharge 11/21/2012 Ears/Nose/Throat/Neck No sore throat 11/21/2012 Ears/Nose/Throat/Neck No sinus congestion 11/21/2012 Cardiovascular No chest pain/pressure 11/21/2012 Gastrointestinal No abdominal pain 11/21/2012 Gastrointestinal No constipation 11/21/2012 Gastrointestinal No diarrhea 11/21/2012 Gastrointestinal No nausea 11/21/2012 Gastrointestinal No vomiting 11/21/2012 Genitourinary/Nephrology No dysuria 11/21/2012 Dermatologic No rash Dermatologic No sores Musculoskeletal No myalgias 10/28/2012 Psychiatric anxiety 03/0 11/2012 Psychiatric depression 0 10/28/2012 Constitutional No chills 10/28/2012 Constitutional No diaphoresis 10/28/2012 Constitutional No fatigue 10/28/2012 Constitutional No fever 10/28/2012 Eyes No eye discharge Eyes No eye erythema 11/2012 Ears/Nose/Throat/Neck No dizziness 10/28/2012 Ears/Nose/Throat/Neck No headache 10/28/2012 Ears/Nose/Throat/Neck No nasal allergies 10/28/2012 Ears/Nose/Throat/Neck No nasal discharge 10/28/2012 Ears/Nose/Throat/Neck No sore throat 10/28/2012 Ears/Nose/Throat/Neck No sinus congestion 10/28/2012 Respiratory No productive sputum 10/28/2012 Respiratory No chest congestion 10/28/2012 Respiratory No cough 11/2012 Respiratory No dyspnea 0 10/28/2012 Gastrointestinal No abdominal pain 10/28/2012 Gastrointestinal No constipation 10/28/2012 Gastrointestinal No diarrhea 10/28/2012 Gastrointestinal No nausea 10/28/2012 Gastrointestinal No vomiting 10/28/2012 Musculoskeletal No stiffness 10/28/2012 Musculoskeletal No swelling 10/28/2012 Musculoskeletal No muscle weakness 10/28/2012 Constitutional No chills 09/30/2012 Constitutional No diaphoresis 09/30/2012 Constitutional No fatigue 09/30/2012 Constitutional No fever 09/30/2012 Eyes No eye discharge Eyes No eye erythema 11/2012 Ears/Nose/Throat/Neck No dizziness 09/30/2012 Ears/Nose/Throat/Neck No headache 09/30/2012 Ears/Nose/Throat/Neck No nasal allergies 09/30/2012 Ears/Nose/Throat/Neck No nasal discharge 09/30/2012 Ears/Nose/Throat/Neck No sore throat 09/30/2012 Ears/Nose/Throat/Neck No sinus congestion 09/30/2012 Cardiovascular No chest pain/pressure 09/30/2012 Respiratory No productive sputum 09/30/2012 Respiratory No chest congestion 09/30/2012 Respiratory No cough 11/2012 Respiratory No dyspnea 0 09/30/2012 Gastrointestinal No abdominal pain 09/30/2012 Gastrointestinal No constipation 09/30/2012 Gastrointestinal No diarrhea 09/30/2012 Gastrointestinal No nausea 09/30/2012 Gastrointestinal No vomiting 09/30/2012 Psychiatric anxiety 11/2012 Psychiatric depression 0 09/30/2012 Musculoskeletal No stiffness 09/30/2012 Musculoskeletal No swelling 09/30/2012 Musculoskeletal No muscle weakness 09/30/2012 Musculoskeletal No myalgias 09/30/2012 Constitutional No chills 08/14/2012 Constitutional No diaphoresis 08/14/2012 Constitutional No fatigue 08/14/2012 Constitutional No fever 08/14/2012 Eyes No eye discharge Eyes No eye erythema Ears/Nose/Throat/Neck No dizziness 08/14/2012 Ears/Nose/Throat/Neck No headache 08/14/2012 Ears/Nose/Throat/Neck No nasal allergies 08/14/2012 Ears/Nose/Throat/Neck No nasal discharge 08/14/2012 Ears/Nose/Throat/Neck No sore throat 08/14/2012 Ears/Nose/Throat/Neck No sinus congestion 08/14/2012 Cardiovascular No chest pain/pressure 08/14/2012 Respiratory No productive sputum 08/14/2012 Respiratory No chest congestion 08/14/2012 Respiratory No cough Respiratory No dyspnea 1 10/15/2011 Gastrointestinal No abdominal pain 08/14/2012 Gastrointestinal No constipation 08/14/2012 Gastrointestinal No diarrhea 08/14/2012 Gastrointestinal No nausea 08/14/2012 Gastrointestinal No vomiting 08/14/2012 Psychiatric anxiety 07/27 Psychiatric depression 1 10/15/2011 Constitutional No chills 08/05/2012 Constitutional No diaphoresis 08/05/2012 Constitutional No fatigue 08/05/2012 Constitutional No fever 08/05/2012 Eyes No eye discharge Eyes No eye erythema 05/2012 Ears/Nose/Throat/Neck No dizziness 08/05/2012 Ears/Nose/Throat/Neck No headache 08/05/2012 Ears/Nose/Throat/Neck No nasal allergies 08/05/2012 Ears/Nose/Throat/Neck No nasal discharge 08/05/2012 Ears/Nose/Throat/Neck No sore throat 08/05/2012 Ears/Nose/Throat/Neck No sinus congestion 08/05/2012 Cardiovascular No chest pain/pressure 08/05/2012 Respiratory No productive sputum 08/05/2012 Respiratory No chest congestion 08/05/2012 Respiratory No cough 05/2012 Respiratory No dyspnea 1 10/06/2011 Gastrointestinal No abdominal pain 08/05/2012 Gastrointestinal No constipation 08/05/2012 Gastrointestinal No diarrhea 08/05/2012 Gastrointestinal No nausea 08/05/2012 Gastrointestinal No vomiting 08/05/2012 Psychiatric anxiety 07/27 Psychiatric depression 1 10/06/2011 Constitutional No chills 07/15/2012 Constitutional No diaphoresis 07/15/2012 Constitutional No fatigue 07/15/2012 Constitutional No fever 07/15/2012 Eyes No eye discharge Eyes No eye erythema Ears/Nose/Throat/Neck No dizziness 07/15/2012 Ears/Nose/Throat/Neck No headache 07/15/2012 Ears/Nose/Throat/Neck No nasal allergies 07/15/2012 Ears/Nose/Throat/Neck No nasal discharge 07/15/2012 Ears/Nose/Throat/Neck No sinus congestion 07/15/2012 Ears/Nose/Throat/Neck No sore throat 07/15/2012 Cardiovascular No chest pain/pressure 07/15/2012 Respiratory No productive sputum 07/15/2012 Respiratory No chest congestion 07/15/2012 Respiratory No cough Respiratory No dyspnea 1 09/14/2011 Gastrointestinal No abdominal pain 07/15/2012 Gastrointestinal No constipation 07/15/2012 Gastrointestinal No diarrhea 07/15/2012 Gastrointestinal No nausea 07/15/2012 Gastrointestinal No vomiting 07/15/2012 Psychiatric anxiety 06/27 Psychiatric depression 1 09/14/2011 Constitutional No recent illness 05/27/2012 Constitutional No chills 05/27/2012 Constitutional No fatigue 05/27/2012 Constitutional No fever 05/27/2012 Constitutional No insomnia 05/27/2012 Constitutional No malaise 05/27/2012 Cardiovascular No chest pain/pressure 05/27/2012 Cardiovascular No dyspnea 05/27/2012 Cardiovascular No edema 05/27/2012 Cardiovascular No exercise intolerance 05/27/2012 Cardiovascular No fatigue 05/27/2012 Cardiovascular No near-syncope/dizziness 05/27/2012 Respiratory No chest tightness 05/27/2012 Respiratory No cigarette smoking 05/27/2012 Respiratory No cough 08/2011 Respiratory No dyspnea 1 Respiratory No pedal edema 05/27/2012 Respiratory No snoring 1 Respiratory No wheezing 05/27/2012 Constitutional No insomnia 05/03/2012 Constitutional No recent illness 05/03/2012 Constitutional No anorexia 05/03/2012 Constitutional No night sweats 05/03/2012 Constitutional No chills 05/03/2012 Constitutional No diaphoresis 05/03/2012 Constitutional No fever 05/03/2012 Constitutional No fatigue 05/03/2012 Eyes No eye discharge Eyes No eye erythema 02/2012 Ears/Nose/Throat/Neck No dizziness 05/03/2012 Ears/Nose/Throat/Neck No nasal discharge 05/03/2012 Ears/Nose/Throat/Neck No sinus congestion 05/03/2012 Ears/Nose/Throat/Neck No sore throat 05/03/2012 Cardiovascular No chest pain/pressure 05/03/2012 Cardiovascular No dyspnea 05/03/2012 Respiratory No chest congestion 05/03/2012 Respiratory No cough 02/2012 Gastrointestinal No abdominal pain 05/03/2012 Gastrointestinal No constipation 05/03/2012 Gastrointestinal No diarrhea 05/03/2012 Gastrointestinal No nausea 05/03/2012 Gastrointestinal No vomiting 05/03/2012 Musculoskeletal No joint complaint 05/03/2012 Dermatologic No rash 02/2012 Cardiovascular No near-syncope/dizziness 04/23/2012 Respiratory No chest tightness 04/23/2012 Respiratory No cigarette smoking 04/23/2012 Respiratory No cough Respiratory No dyspnea 0 04/23/2012 Respiratory No pedal edema 04/23/2012 Respiratory No snoring 0 04/23/2012 Respiratory No wheezing 04/23/2012 Psychiatric No anxiety 0 04/23/2012 Psychiatric No depression 04/23/2012 Constitutional No recent illness 04/23/2012 Constitutional No chills 04/23/2012 Constitutional No fatigue 04/23/2012 Constitutional No fever 04/23/2012 Constitutional No insomnia 04/23/2012 Constitutional No malaise 04/23/2012 Cardiovascular No chest pain/pressure 04/23/2012 Cardiovascular No dyspnea 04/23/2012 Cardiovascular edema Cardiovascular No exercise intolerance 04/23/2012 Cardiovascular No fatigue 04/23/2012 Constitutional No recent illness 03/25/2012 Constitutional No anorexia 03/25/2012 Constitutional No night sweats 03/25/2012 Constitutional No chills 03/25/2012 Constitutional No diaphoresis 03/25/2012 Constitutional No fatigue 03/25/2012 Constitutional No fever 03/25/2012 Constitutional No insomnia 03/25/2012 Constitutional No malaise 03/25/2012 Eyes No eye discharge Eyes No eye erythema Ears/Nose/Throat/Neck No dizziness 03/25/2012 Ears/Nose/Throat/Neck No headache 03/25/2012 Ears/Nose/Throat/Neck No nasal discharge 03/25/2012 Respiratory No productive sputum 03/25/2012 Respiratory No chest congestion 03/25/2012 Respiratory No cough Gastrointestinal No vomiting 03/25/2012 Gastrointestinal No nausea 03/25/2012 Gastrointestinal No constipation 03/25/2012 Gastrointestinal No diarrhea 03/25/2012 Genitourinary/Nephrology No dysuria 03/25/2012 Constitutional No recent illness 03/12/2012 Constitutional No anorexia 03/12/2012 Constitutional No night sweats 03/12/2012 Constitutional No chills 03/12/2012 Constitutional No diaphoresis 03/12/2012 Constitutional No fatigue 03/12/2012 Constitutional No fever 03/12/2012 Constitutional No insomnia 03/12/2012 Constitutional No malaise 03/12/2012 Constitutional No obesity 03/12/2012 Eyes No eye discharge Eyes No eye erythema Ears/Nose/Throat/Neck No dizziness 03/12/2012 Ears/Nose/Throat/Neck No headache 03/12/2012 Ears/Nose/Throat/Neck No nasal allergies 03/12/2012 Ears/Nose/Throat/Neck No nasal discharge 03/12/2012 Ears/Nose/Throat/Neck No otalgia 03/12/2012 Respiratory No productive sputum 03/12/2012 Respiratory No chest congestion 03/12/2012 Respiratory No cough Gastrointestinal No abdominal pain 03/12/2012 Gastrointestinal No diarrhea 03/12/2012 Gastrointestinal No constipation 03/12/2012 Gastrointestinal gas and bloating 03/12/2012 Gastrointestinal No nausea 03/12/2012 Gastrointestinal No vomiting 03/12/2012 Genitourinary/Nephrology No dysuria 03/12/2012 Dermatologic No rash Dermatologic No sores Dermatologic mole change 03/12/2012 Neurologic No alteration of consciousness 03/12/2012 Constitutional No chills 01/23/2012 Constitutional No diaphoresis 01/23/2012 Constitutional No fatigue 01/23/2012 Constitutional No fever 01/23/2012 Eyes No eye discharge Eyes No eye erythema Ears/Nose/Throat/Neck No dizziness 01/23/2012 Ears/Nose/Throat/Neck No nasal allergies 01/23/2012 Ears/Nose/Throat/Neck No nasal discharge 01/23/2012 Ears/Nose/Throat/Neck No sinus congestion 01/23/2012 Ears/Nose/Throat/Neck No sore throat 01/23/2012 Respiratory No productive sputum 01/23/2012 Respiratory No chest congestion 01/23/2012 Respiratory No cough Gastrointestinal No abdominal pain 01/23/2012 Gastrointestinal No constipation 01/23/2012 Gastrointestinal No diarrhea 01/23/2012 Gastrointestinal No nausea 01/23/2012 Gastrointestinal No vomiting 01/23/2012 Psychiatric anxiety 12/26 Psychiatric depression 0 01/23/2012 Musculoskeletal No stiffness 01/23/2012 Neurologic No dizziness 01/23/2012 Constitutional No recent illness 01/12/2012 Constitutional No anorexia 01/12/2012 Constitutional No night sweats 01/12/2012 Constitutional No chills 01/12/2012 Constitutional No diaphoresis 01/12/2012 Constitutional No fatigue 01/12/2012 Constitutional No fever 01/12/2012 Constitutional No insomnia 01/12/2012 Cardiovascular No chest pain/pressure 01/12/2012 Cardiovascular No hypertension 01/12/2012 Cardiovascular No fatigue 01/12/2012 Ears/Nose/Throat/Neck No dizziness 12/25/2011 Ears/Nose/Throat/Neck No headache 12/25/2011 Ears/Nose/Throat/Neck No sore throat 12/25/2011 Respiratory No productive sputum 12/25/2011 Respiratory No chest congestion 12/25/2011 Respiratory No dyspnea 0 12/25/2011 Psychiatric anxiety 11/27 Psychiatric depression 0 12/25/2011 Musculoskeletal No stiffness 12/25/2011 Musculoskeletal arthralgia(s) 12/25/2011 Cardiovascular dyspnea 0 12/25/2011 Cardiovascular No edema 12/25/2011 Constitutional No chills 12/25/2011 Constitutional No fever 12/25/2011 Ears/Nose/Throat/Neck No nasal discharge 12/25/2011 Ears/Nose/Throat/Neck No nasal allergies 12/25/2011 Ears/Nose/Throat/Neck No sinus congestion 12/25/2011 Cardiovascular No chest pain/pressure 12/25/2011 Respiratory No cough Gastrointestinal No abdominal pain 12/25/2011 Gastrointestinal No constipation 12/25/2011 Gastrointestinal No diarrhea 12/25/2011 Gastrointestinal No vomiting 12/25/2011 Gastrointestinal No nausea 12/25/2011 Constitutional No diaphoresis 12/25/2011 Constitutional No fatigue 12/25/2011 Eyes No eye discharge Eyes No eye erythema Eyes No vision change Cardiovascular palpitations 12/04/2011 Genitourinary/Nephrology No dysuria 12/04/2011 Neurologic No alteration of consciousness 12/04/2011 Constitutional recent illness 12/04/2011 Ears/Nose/Throat/Neck No dizziness 12/04/2011 Ears/Nose/Throat/Neck No headache 12/04/2011 Cardiovascular No chest pain/pressure 12/04/2011 Respiratory No chest congestion 12/04/2011 Respiratory No cough 04/2012 Gastrointestinal No constipation 12/04/2011 Gastrointestinal No nausea 12/04/2011 Gastrointestinal No vomiting 12/04/2011 Constitutional No chills 12/04/2011 Constitutional No diaphoresis 12/04/2011 Constitutional No fatigue 12/04/2011 Constitutional No fever 12/04/2011 Eyes No eye discharge Eyes No eye erythema 04/2012 Ears/Nose/Throat/Neck No nasal allergies 12/04/2011 Ears/Nose/Throat/Neck No nasal discharge 12/04/2011 Ears/Nose/Throat/Neck No sinus congestion 12/04/2011 Ears/Nose/Throat/Neck No sore throat 12/04/2011 Respiratory No productive sputum 12/04/2011 Respiratory No dyspnea 0 12/04/2011 Gastrointestinal No abdominal pain 12/04/2011 Gastrointestinal No diarrhea 12/04/2011 Psychiatric anxiety 04/04/2012 Psychiatric depression 0 12/04/2011 Ears/Nose/Throat/Neck No headache 09/20/2011 Respiratory No dyspnea 0 09/20/2011 Constitutional No chills 09/20/2011 Constitutional No fever 09/20/2011 Ears/Nose/Throat/Neck No dizziness 09/20/2011 Cardiovascular No chest pain/pressure 09/20/2011 Gastrointestinal No nausea 09/20/2011 Gastrointestinal No vomiting 09/20/2011 Constitutional recent illness 09/20/2011 Constitutional No diaphoresis 09/20/2011 Constitutional No fatigue 09/20/2011 Eyes No eye discharge Eyes No eye erythema Ears/Nose/Throat/Neck No nasal allergies 09/20/2011 Ears/Nose/Throat/Neck No nasal discharge 09/20/2011 Ears/Nose/Throat/Neck No sinus congestion 09/20/2011 Ears/Nose/Throat/Neck No sore throat 09/20/2011 Respiratory No productive sputum 09/20/2011 Respiratory No chest congestion 09/20/2011 Respiratory No cough Gastrointestinal No abdominal pain 09/20/2011 Gastrointestinal No constipation 09/20/2011 Gastrointestinal No diarrhea 09/20/2011 Psychiatric anxiety 08/28 Psychiatric depression 0 09/20/2011 Constitutional recent illness 09/06/2011 Constitutional No chills 09/06/2011 Constitutional No diaphoresis 09/06/2011 Constitutional No fatigue 09/06/2011 Constitutional No fever 09/06/2011 Eyes No eye discharge Eyes No eye erythema 06/2012 Ears/Nose/Throat/Neck No dizziness 09/06/2011 Ears/Nose/Throat/Neck No nasal allergies 09/06/2011 Ears/Nose/Throat/Neck No nasal discharge 09/06/2011 Ears/Nose/Throat/Neck No sore throat 09/06/2011 Ears/Nose/Throat/Neck No sinus congestion 09/06/2011 Cardiovascular No chest pain/pressure 09/06/2011 Respiratory No productive sputum 09/06/2011 Respiratory No cough 06/2012 Respiratory No chest congestion 09/06/2011 Gastrointestinal No abdominal pain 09/06/2011 Gastrointestinal No nausea 09/06/2011 Gastrointestinal No vomiting 09/06/2011 Gastrointestinal No constipation 09/06/2011 Gastrointestinal No diarrhea 09/06/2011 Psychiatric anxiety 08/27 Psychiatric depression 0 09/06/2011 Constitutional No night sweats 08/30/2011 Constitutional No fatigue 08/30/2011 Constitutional No fever 08/30/2011 Dermatologic No rash 11/2011 Dermatologic No sores Psychiatric No anxiety 0 08/30/2011 Psychiatric No depression 08/30/2011 Gastrointestinal abdominal pain 08/30/2011 Gastrointestinal constipation 08/30/2011 Cardiovascular hypertension 08/30/2011 Cardiovascular fatigue 0 08/30/2011 Cardiovascular No chest pain/pressure 08/30/2011 Respiratory No cough 11/2011 Respiratory No chest congestion 08/30/2011 Respiratory No chest tightness 08/30/2011 Neurologic No dizziness 08/30/2011 Neurologic No headache 0 08/30/2011 Musculoskeletal No back pain 08/30/2011 Musculoskeletal arthralgia(s) 08/30/2011 Constitutional No recent illness 08/23/2011 Constitutional chills Constitutional fatigue 1 10/24/2010 Constitutional fever Eyes No eye discharge Eyes No eye erythema Ears/Nose/Throat/Neck No dizziness 08/23/2011 Ears/Nose/Throat/Neck headache 08/23/2011 Ears/Nose/Throat/Neck No hoarseness 08/23/2011 Ears/Nose/Throat/Neck nasal discharge 08/23/2011 Ears/Nose/Throat/Neck sinus congestion 08/23/2011 Ears/Nose/Throat/Neck No sore throat 08/23/2011 Cardiovascular No chest pain/pressure 08/23/2011 Respiratory No productive sputum 08/23/2011 Respiratory No cough Respiratory No dyspnea 1 10/24/2010 Gastrointestinal No abdominal pain 08/23/2011 Gastrointestinal No nausea 08/23/2011 Gastrointestinal No vomiting 08/23/2011 Gastrointestinal No constipation 08/23/2011 Gastrointestinal No diarrhea 08/23/2011 Genitourinary/Nephrology No dysuria 08/23/2011 Genitourinary/Nephrology urinary frequency 08/23/2011 Genitourinary/Nephrology urinary urgency 08/23/2011 Dermatologic No rash Constitutional No recent illness 08/09/2011 Constitutional No chills 08/09/2011 Constitutional No diaphoresis 08/09/2011 Constitutional No fatigue 08/09/2011 Constitutional No fever 08/09/2011 Constitutional No insomnia 08/09/2011 Eyes No eye discharge Eyes No eye erythema Ears/Nose/Throat/Neck No headache 08/09/2011 Cardiovascular No chest pain/pressure 08/09/2011 Genitourinary/Nephrology No breast c omplaint 08/09/2011 Genitourinary/Nephrology No dysuria 08/09/2011 Genitourinary/Nephrology No vaginal discharge 08/09/2011 Genitourinary/Nephrology No pelvic pain 08/09/2011 Dermatologic sores 08/09 Constitutional No chills 05/04/2011 Ears/Nose/Throat/Neck facial pain 05/04/2011 Ears/Nose/Throat/Neck No dizziness 05/04/2011 Cardiovascular No chest pain/pressure 05/04/2011 Cardiovascular No palpitations 05/04/2011 Respiratory No chest congestion 05/04/2011 Respiratory No chest tightness 05/04/2011 Respiratory No cough 03/2011 Genitourinary/Nephrology No urinary urgenc y 05/04/2011 Genitourinary/Nephrology No urinary frequency 05/04/2011 Genitourinary/Nephrology No urinary incontinence 05/04/2011 Musculoskeletal No back pain 05/04/2011 Dermatologic No rash 03/2011 Dermatologic No sores Neurologic No ataxia 03/2011 Neurologic No dizziness 05/04/2011 Neurologic No pain, back 05/04/2011 Psychiatric No anxiety 0 05/04/2011 Psychiatric No depression 05/04/2011 Musculoskeletal joint complaint 05/04/2011 Respiratory No chest tightness 04/19/2011 Respiratory cough 2010 Respiratory No daytime hypersomnolence 04/19/2011 Constitutional fever Constitutional chills Constitutional fatigue 0 04/19/2011 Constitutional No insomnia 04/19/2011 Eyes No eye discharge Eyes No eye pain 011 Eyes No vision change Ears/Nose/Throat/Neck No dental pain 04/19/2011 Ears/Nose/Throat/Neck No dizziness 04/19/2011 Ears/Nose/Throat/Neck No dysphagia 04/19/2011 Ears/Nose/Throat/Neck facial pain 04/19/2011 Ears/Nose/Throat/Neck headache 04/19/2011 Ears/Nose/Throat/Neck nasal allergies 04/19/2011 Ears/Nose/Throat/Neck nasal discharge 04/19/2011 Gastrointestinal No nausea 04/19/2011 Gastrointestinal No vomiting 04/19/2011 Genitourinary/Nephrology No dysuria 04/19/2011 Genitourinary/Nephrology No hematuria 04/19/2011 Genitourinary/Nephrology No urinary urgenc y 04/19/2011 Genitourinary/Nephrology No urinary frequency 04/19/2011 Dermatologic No rash Ears/Nose/Throat/Neck No neck pain 04/19/2011 Ears/Nose/Throat/Neck No otitis media 04/19/2011 Ears/Nose/Throat/Neck postnasal drip 04/19/2011 Ears/Nose/Throat/Neck sinus congestion 04/19/2011 Ears/Nose/Throat/Neck sore throat 04/19/2011 Ears/Nose/Throat/Neck No tinnitus 04/19/2011 Cardiovascular No chest pain/pressure 04/19/2011 Cardiovascular No paroxysmal nocturn al dyspnea 04/19/2011 Cardiovascular No syncope 04/19/2011 Cardiovascular No edema 04/19/2011 Respiratory asthma 04/19 Respiratory productive sputum 04/19/2011 Respiratory chest congestion 04/19/2011 Respiratory No dyspnea on exertion 04/19/2011 Respiratory No hemoptysis 04/19/2011 Respiratory wheezing Respiratory No pedal edema 04/19/2011 Gastrointestinal gastroesophageal reflux 04/19/2011 Gastrointestinal No diarrhea 04/19/2011 Gastrointestinal No constipation 04/19/2011 Ears/Nose/Throat/Neck hoarseness 04/19/2011 System Result Effective Dates Constitutional No recent illness 03/11/2019 Constitutional No chills 03/11/2019 Constitutional No diaphoresis 03/11/2019 Constitutional No fatigue 03/11/2019 Constitutional No fever 03/11/2019 Constitutional insomnia 03/11/2019 Constitutional No malaise 03/11/2019 Eyes No eye discharge Eyes No eye erythema Ears/Nose/Throat/Neck No dizziness 03/11/2019 Ears/Nose/Throat/Neck No headache 03/11/2019 Ears/Nose/Throat/Neck No nasal allergies 03/11/2019 Ears/Nose/Throat/Neck nasal discharge 03/11/2019 Ears/Nose/Throat/Neck No sore throat 03/11/2019 Ears/Nose/Throat/Neck sinus congestion 03/11/2019 Cardiovascular No chest pain/pressure 03/11/2019 Cardiovascular No dyspnea 03/11/2019 Cardiovascular edema Cardiovascular No exercise intolerance 03/11/2019 Cardiovascular No fatigue 03/11/2019 Cardiovascular hypertension 03/11/2019 Respiratory No productive sputum 03/11/2019 Respiratory chest congestion 03/11/2019 Respiratory cough 2018 Respiratory dyspnea on exertion 03/11/2019 Respiratory No dyspnea 0 03/11/2019 Gastrointestinal No abdominal pain 03/11/2019 Gastrointestinal No constipation 03/11/2019 Gastrointestinal No nausea 03/11/2019 Gastrointestinal No vomiting 03/11/2019 Genitourinary/Nephrology No dysuria 03/11/2019 Musculoskeletal No stiffness 03/11/2019 Musculoskeletal No swelling 03/11/2019 Musculoskeletal back pain 03/11/2019 Musculoskeletal joint complaint 03/11/2019 Musculoskeletal No muscle weakness 03/11/2019 Musculoskeletal No myalgias 03/11/2019 Dermatologic No rash Dermatologic No scar Neurologic No dizziness 03/11/2019 Neurologic No headache 0 03/11/2019 Neurologic No neck pain 03/11/2019 Neurologic No syncope Psychiatric anxiety 02/24 Psychiatric depression 0 03/11/2019 Respiratory chest tightness 03/11/2019 Constitutional No recent illness 09/03/2018 Constitutional No anorexia 09/03/2018 Constitutional No night sweats 09/03/2018 Constitutional No chills 09/03/2018 Constitutional No diaphoresis 09/03/2018 Constitutional No fatigue 09/03/2018 Constitutional No fever 09/03/2018 Constitutional insomnia 09/03/2018 Constitutional No malaise 09/03/2018 Eyes No eye discharge Eyes No eye erythema 03/2019 Ears/Nose/Throat/Neck No dizziness 09/03/2018 Ears/Nose/Throat/Neck No headache 09/03/2018 Ears/Nose/Throat/Neck No nasal allergies 09/03/2018 Ears/Nose/Throat/Neck No nasal discharge 09/03/2018 Ears/Nose/Throat/Neck No sore throat 09/03/2018 Ears/Nose/Throat/Neck No sinus congestion 09/03/2018 Cardiovascular No chest pain/pressure 09/03/2018 Cardiovascular No dyspnea 09/03/2018 Cardiovascular edema 03/2019 Cardiovascular No exercise intolerance 09/03/2018 Cardiovascular No fatigue 09/03/2018 Cardiovascular hypertension 09/03/2018 Respiratory No productive sputum 09/03/2018 Respiratory No chest congestion 09/03/2018 Respiratory No cough 03/2019 Respiratory dyspnea on exertion 09/03/2018 Respiratory No dyspnea 0 09/03/2018 Gastrointestinal No abdominal pain 09/03/2018 Gastrointestinal No constipation 09/03/2018 Gastrointestinal No nausea 09/03/2018 Gastrointestinal No vomiting 09/03/2018 Genitourinary/Nephrology No dysuria 09/03/2018 Musculoskeletal No stiffness 09/03/2018 Musculoskeletal No swelling 09/03/2018 Musculoskeletal joint complaint 09/03/2018 Musculoskeletal No muscle weakness 09/03/2018 Musculoskeletal No myalgias 09/03/2018 Dermatologic No rash 03/2019 Dermatologic No scar 03/2019 Neurologic No dizziness 09/03/2018 Neurologic No headache 0 09/03/2018 Neurologic No neck pain 09/03/2018 Neurologic No syncope Psychiatric anxiety 03/2019 Psychiatric depression 0 09/03/2018 Musculoskeletal back pain 09/03/2018 Constitutional No recent illness 05/29/2018 Constitutional No anorexia 05/29/2018 Constitutional No night sweats 05/29/2018 Constitutional No chills 05/29/2018 Constitutional No diaphoresis 05/29/2018 Constitutional No fatigue 05/29/2018 Constitutional No fever 05/29/2018 Constitutional insomnia 05/29/2018 Constitutional No malaise 05/29/2018 Eyes No eye discharge Eyes No eye erythema 10/2017 Ears/Nose/Throat/Neck No dizziness 05/29/2018 Ears/Nose/Throat/Neck No headache 05/29/2018 Ears/Nose/Throat/Neck No nasal allergies 05/29/2018 Ears/Nose/Throat/Neck No nasal discharge 05/29/2018 Ears/Nose/Throat/Neck No sore throat 05/29/2018 Ears/Nose/Throat/Neck No sinus congestion 05/29/2018 Cardiovascular No chest pain/pressure 05/29/2018 Cardiovascular No dyspnea 05/29/2018 Cardiovascular edema 10/2017 Cardiovascular exercise intolerance 05/29/2018 Cardiovascular fatigue 1 Cardiovascular hypertension 05/29/2018 Respiratory No productive sputum 05/29/2018 Respiratory No chest congestion 05/29/2018 Respiratory No cough 10/2017 Respiratory dyspnea on exertion 05/29/2018 Respiratory No dyspnea 1 Gastrointestinal No abdominal pain 05/29/2018 Gastrointestinal No constipation 05/29/2018 Gastrointestinal No nausea 05/29/2018 Gastrointestinal No vomiting 05/29/2018 Genitourinary/Nephrology No dysuria 05/29/2018 Musculoskeletal No stiffness 05/29/2018 Musculoskeletal No swelling 05/29/2018 Musculoskeletal joint complaint 05/29/2018 Musculoskeletal No muscle weakness 05/29/2018 Musculoskeletal No myalgias 05/29/2018 Dermatologic No rash 10/2017 Dermatologic No scar 10/2017 Neurologic No dizziness 05/29/2018 Neurologic No headache 1 Neurologic No neck pain 05/29/2018 Neurologic No syncope Psychiatric anxiety 10/2017 Psychiatric depression 1 Musculoskeletal back pain 05/29/2018 Gastrointestinal No diarrhea 05/29/2018 Constitutional No recent illness 04/25/2018 Constitutional No anorexia 04/25/2018 Constitutional No night sweats 04/25/2018 Constitutional No chills 04/25/2018 Constitutional No diaphoresis 04/25/2018 Constitutional No fatigue 04/25/2018 Constitutional No fever 04/25/2018 Constitutional No malaise 04/25/2018 Eyes No eye discharge Eyes No eye erythema Ears/Nose/Throat/Neck No dizziness 04/25/2018 Ears/Nose/Throat/Neck No headache 04/25/2018 Ears/Nose/Throat/Neck No nasal allergies 04/25/2018 Ears/Nose/Throat/Neck No nasal discharge 04/25/2018 Ears/Nose/Throat/Neck No sore throat 04/25/2018 Ears/Nose/Throat/Neck No sinus congestion 04/25/2018 Cardiovascular No chest pain/pressure 04/25/2018 Cardiovascular No dyspnea 04/25/2018 Cardiovascular edema Cardiovascular No exercise intolerance 04/25/2018 Cardiovascular No fatigue 04/25/2018 Cardiovascular hypertension 04/25/2018 Respiratory No productive sputum 04/25/2018 Respiratory No chest congestion 04/25/2018 Respiratory No cough Respiratory No dyspnea 0 04/25/2018 Gastrointestinal No abdominal pain 04/25/2018 Gastrointestinal No constipation 04/25/2018 Gastrointestinal No nausea 04/25/2018 Gastrointestinal No vomiting 04/25/2018 Genitourinary/Nephrology No dysuria 04/25/2018 Musculoskeletal No stiffness 04/25/2018 Musculoskeletal No swelling 04/25/2018 Musculoskeletal joint complaint 04/25/2018 Musculoskeletal No muscle weakness 04/25/2018 Musculoskeletal No myalgias 04/25/2018 Dermatologic No rash Dermatologic No scar Neurologic No dizziness 04/25/2018 Neurologic No headache 0 04/25/2018 Neurologic No neck pain 04/25/2018 Neurologic No syncope Psychiatric anxiety 03/29 Psychiatric depression 0 04/25/2018 Dermatologic sores 04/25 Constitutional No recent illness 02/06/2018 Constitutional No chills 02/06/2018 Constitutional No diaphoresis 02/06/2018 Constitutional No fever 02/06/2018 Eyes No eye erythema Ears/Nose/Throat/Neck No nasal discharge 02/06/2018 Ears/Nose/Throat/Neck nasal allergies 02/06/2018 Ears/Nose/Throat/Neck hearing loss 02/06/2018 Ears/Nose/Throat/Neck cerumen 02/06/2018 Cardiovascular No chest pain/pressure 02/06/2018 Respiratory No cough Neurologic No alteration of consciousness 02/06/2018 Neurologic No mental status change 02/06/2018 Constitutional No recent illness 01/23/2018 Constitutional No anorexia 01/23/2018 Constitutional No night sweats 01/23/2018 Constitutional No chills 01/23/2018 Constitutional No diaphoresis 01/23/2018 Constitutional No fatigue 01/23/2018 Constitutional No fever 01/23/2018 Constitutional insomnia 01/23/2018 Constitutional No malaise 01/23/2018 Eyes No eye discharge Eyes No eye erythema Ears/Nose/Throat/Neck No dizziness 01/23/2018 Ears/Nose/Throat/Neck No headache 01/23/2018 Ears/Nose/Throat/Neck No nasal allergies 01/23/2018 Ears/Nose/Throat/Neck No nasal discharge 01/23/2018 Ears/Nose/Throat/Neck No sore throat 01/23/2018 Ears/Nose/Throat/Neck No sinus congestion 01/23/2018 Cardiovascular No chest pain/pressure 01/23/2018 Cardiovascular No dyspnea 01/23/2018 Cardiovascular edema Cardiovascular No exercise intolerance 01/23/2018 Cardiovascular No fatigue 01/23/2018 Cardiovascular hypertension 01/23/2018 Respiratory No productive sputum 01/23/2018 Respiratory No chest congestion 01/23/2018 Respiratory No cough Respiratory dyspnea on exertion 01/23/2018 Respiratory No dyspnea 0 01/23/2018 Gastrointestinal No abdominal pain 01/23/2018 Gastrointestinal No constipation 01/23/2018 Gastrointestinal diarrhea 01/23/2018 Gastrointestinal No nausea 01/23/2018 Gastrointestinal No vomiting 01/23/2018 Genitourinary/Nephrology No dysuria 01/23/2018 Musculoskeletal No stiffness 01/23/2018 Musculoskeletal No swelling 01/23/2018 Musculoskeletal joint complaint 01/23/2018 Musculoskeletal No muscle weakness 01/23/2018 Musculoskeletal No myalgias 01/23/2018 Dermatologic No rash Dermatologic No scar Neurologic No dizziness 01/23/2018 Neurologic No headache 0 01/23/2018 Neurologic No neck pain 01/23/2018 Neurologic No syncope Psychiatric anxiety 12/27 Psychiatric depression 0 01/23/2018 Constitutional recent illness 09/26/2017 Constitutional No fatigue 09/26/2017 Psychiatric No anxiety 0 09/26/2017 Psychiatric No depression 09/26/2017 Respiratory No cough Cardiovascular fatigue 0 09/26/2017 Musculoskeletal stiffness 09/26/2017 Musculoskeletal arthralgia(s) 09/26/2017 Constitutional recent illness 09/12/2017 Constitutional No anorexia 09/12/2017 Constitutional No night sweats 09/12/2017 Constitutional No chills 09/12/2017 Constitutional No diaphoresis 09/12/2017 Constitutional No fatigue 09/12/2017 Constitutional No fever 09/12/2017 Constitutional insomnia 09/12/2017 Constitutional No malaise 09/12/2017 Eyes No eye discharge Eyes No eye erythema Ears/Nose/Throat/Neck No dizziness 09/12/2017 Ears/Nose/Throat/Neck headache 09/12/2017 Ears/Nose/Throat/Neck No nasal allergies 09/12/2017 Ears/Nose/Throat/Neck No nasal discharge 09/12/2017 Ears/Nose/Throat/Neck sore throat 09/12/2017 Ears/Nose/Throat/Neck sinus congestion 09/12/2017 Cardiovascular No chest pain/pressure 09/12/2017 Cardiovascular No dyspnea 09/12/2017 Cardiovascular edema Cardiovascular No exercise intolerance 09/12/2017 Cardiovascular No fatigue 09/12/2017 Cardiovascular hypertension 09/12/2017 Respiratory No productive sputum 09/12/2017 Respiratory No chest congestion 09/12/2017 Respiratory No cough Respiratory dyspnea on exertion 09/12/2017 Respiratory No dyspnea 0 09/12/2017 Gastrointestinal No abdominal pain 09/12/2017 Gastrointestinal No constipation 09/12/2017 Gastrointestinal No diarrhea 09/12/2017 Gastrointestinal No nausea 09/12/2017 Gastrointestinal No vomiting 09/12/2017 Genitourinary/Nephrology No dysuria 09/12/2017 Musculoskeletal stiffness 09/12/2017 Musculoskeletal No swelling 09/12/2017 Musculoskeletal joint complaint 09/12/2017 Musculoskeletal No muscle weakness 09/12/2017 Musculoskeletal No myalgias 09/12/2017 Dermatologic No rash Dermatologic No scar Neurologic No dizziness 09/12/2017 Neurologic No headache 0 09/12/2017 Neurologic No neck pain 09/12/2017 Neurologic No syncope Psychiatric anxiety 08/27 Psychiatric depression 0 09/12/2017 Ears/Nose/Throat/Neck No otalgia 09/12/2017 Neurologic No alteration of consciousness 09/12/2017 Constitutional recent illness 08/31/2017 Constitutional fatigue 0 08/31/2017 Constitutional No fever 08/31/2017 Eyes No eye discharge Eyes No eye erythema 12/2017 Ears/Nose/Throat/Neck nasal discharge 08/31/2017 Ears/Nose/Throat/Neck sinus congestion 08/31/2017 Ears/Nose/Throat/Neck sore throat 08/31/2017 Cardiovascular No chest pain/pressure 08/31/2017 Cardiovascular No dyspnea 08/31/2017 Respiratory No productive sputum 08/31/2017 Respiratory chest congestion 08/31/2017 Respiratory cough 2017 Gastrointestinal No diarrhea 08/31/2017 Gastrointestinal No nausea 08/31/2017 Gastrointestinal No vomiting 08/31/2017 Musculoskeletal No joint complaint 08/31/2017 Dermatologic No rash 12/2017 Neurologic No alteration of consciousness 08/31/2017 Constitutional No chills 08/31/2017 Constitutional No diaphoresis 08/31/2017 Ears/Nose/Throat/Neck nasal allergies 08/31/2017 Respiratory No dyspnea 0 08/31/2017 Constitutional recent illness 08/09/2017 Constitutional No anorexia 08/09/2017 Constitutional No night sweats 08/09/2017 Constitutional chills Constitutional No diaphoresis 08/09/2017 Constitutional fatigue 1 10/10/2016 Constitutional No fever 08/09/2017 Constitutional No insomnia 08/09/2017 Constitutional No weight loss 08/09/2017 Constitutional No weight gain 08/09/2017 Constitutional No malaise 08/09/2017 Eyes No eye discharge Eyes No eye erythema Ears/Nose/Throat/Neck headache 08/09/2017 Ears/Nose/Throat/Neck nasal discharge 08/09/2017 Ears/Nose/Throat/Neck No otalgia 08/09/2017 Ears/Nose/Throat/Neck sinus congestion 08/09/2017 Ears/Nose/Throat/Neck sore throat 08/09/2017 Cardiovascular No chest pain/pressure 08/09/2017 Cardiovascular No dyspnea 08/09/2017 Respiratory No productive sputum 08/09/2017 Respiratory chest congestion 08/09/2017 Respiratory cough 2016 Gastrointestinal No vomiting 08/09/2017 Gastrointestinal No nausea 08/09/2017 Gastrointestinal No diarrhea 08/09/2017 Genitourinary/Nephrology No dysuria 08/09/2017 Musculoskeletal No joint complaint 08/09/2017 Dermatologic No rash Neurologic No alteration of consciousness 08/09/2017 Constitutional No recent illness 05/07/2017 Constitutional No anorexia 05/07/2017 Constitutional No night sweats 05/07/2017 Constitutional No chills 05/07/2017 Constitutional No diaphoresis 05/07/2017 Constitutional No fatigue 05/07/2017 Constitutional No fever 05/07/2017 Constitutional insomnia 05/07/2017 Constitutional No malaise 05/07/2017 Eyes No eye discharge Eyes No eye erythema 06/2017 Ears/Nose/Throat/Neck No dizziness 05/07/2017 Ears/Nose/Throat/Neck No headache 05/07/2017 Ears/Nose/Throat/Neck No nasal allergies 05/07/2017 Ears/Nose/Throat/Neck No nasal discharge 05/07/2017 Ears/Nose/Throat/Neck No sore throat 05/07/2017 Ears/Nose/Throat/Neck No sinus congestion 05/07/2017 Cardiovascular No chest pain/pressure 05/07/2017 Cardiovascular No dyspnea 05/07/2017 Cardiovascular edema 06/2017 Cardiovascular No exercise intolerance 05/07/2017 Cardiovascular No fatigue 05/07/2017 Cardiovascular hypertension 05/07/2017 Respiratory No productive sputum 05/07/2017 Respiratory No chest congestion 05/07/2017 Respiratory No cough 06/2017 Respiratory dyspnea on exertion 05/07/2017 Respiratory No dyspnea 0 05/07/2017 Gastrointestinal No abdominal pain 05/07/2017 Gastrointestinal No constipation 05/07/2017 Gastrointestinal diarrhea 05/07/2017 Gastrointestinal No nausea 05/07/2017 Gastrointestinal No vomiting 05/07/2017 Genitourinary/Nephrology No dysuria 05/07/2017 Musculoskeletal No stiffness 05/07/2017 Musculoskeletal No swelling 05/07/2017 Musculoskeletal joint complaint 05/07/2017 Musculoskeletal No muscle weakness 05/07/2017 Musculoskeletal No myalgias 05/07/2017 Dermatologic No rash 06/2017 Dermatologic No scar 06/2017 Neurologic No dizziness 05/07/2017 Neurologic No headache 0 05/07/2017 Neurologic No neck pain 05/07/2017 Neurologic No syncope Psychiatric anxiety 04/27 Psychiatric depression 0 05/07/2017 Constitutional No recent illness 04/12/2017 Constitutional No chills 04/12/2017 Constitutional No diaphoresis 04/12/2017 Constitutional No fever 04/12/2017 Eyes No eye erythema Ears/Nose/Throat/Neck No nasal discharge 04/12/2017 Cardiovascular No chest pain/pressure 04/12/2017 Respiratory No cough Neurologic No alteration of consciousness 04/12/2017 Neurologic No mental status change 04/12/2017 Constitutional recent illness 02/05/2017 Constitutional No anorexia 02/05/2017 Constitutional No night sweats 02/05/2017 Constitutional No chills 02/05/2017 Constitutional diaphoresis 02/05/2017 Constitutional fatigue 0 02/05/2017 Constitutional No fever 02/05/2017 Constitutional No insomnia 02/05/2017 Constitutional No malaise 02/05/2017 Constitutional No weight loss 02/05/2017 Constitutional No weight gain 02/05/2017 Eyes No eye discharge Eyes No eye erythema 07/2017 Ears/Nose/Throat/Neck No dizziness 02/05/2017 Ears/Nose/Throat/Neck No headache 02/05/2017 Cardiovascular No chest pain/pressure 02/05/2017 Cardiovascular No dyspnea 02/05/2017 Cardiovascular edema 07/2017 Respiratory No productive sputum 02/05/2017 Respiratory No chest congestion 02/05/2017 Respiratory cough 2016 Gastrointestinal No abdominal pain 02/05/2017 Gastrointestinal constipation 02/05/2017 Gastrointestinal No diarrhea 02/05/2017 Gastrointestinal gastroesophageal reflux 02/05/2017 Genitourinary/Nephrology dysuria 02/05/2017 Musculoskeletal joint complaint 02/05/2017 Dermatologic No rash 07/2017 Neurologic No alteration of consciousness 02/05/2017 Psychiatric anxiety 01/25 Constitutional recent illness 02/02/2017 Constitutional No anorexia 02/02/2017 Constitutional No night sweats 02/02/2017 Constitutional No chills 02/02/2017 Constitutional diaphoresis 02/02/2017 Constitutional fatigue 0 02/02/2017 Constitutional No fever 02/02/2017 Constitutional No insomnia 02/02/2017 Constitutional No malaise 02/02/2017 Constitutional No weight loss 02/02/2017 Constitutional No weight gain 02/02/2017 Eyes No eye discharge Eyes No eye erythema 04/2017 Ears/Nose/Throat/Neck No dizziness 02/02/2017 Ears/Nose/Throat/Neck No headache 02/02/2017 Cardiovascular No chest pain/pressure 02/02/2017 Cardiovascular No dyspnea 02/02/2017 Cardiovascular edema 04/2017 Respiratory No productive sputum 02/02/2017 Respiratory No chest congestion 02/02/2017 Respiratory cough 2016 Gastrointestinal No abdominal pain 02/02/2017 Gastrointestinal constipation 02/02/2017 Gastrointestinal No diarrhea 02/02/2017 Genitourinary/Nephrology dysuria 02/02/2017 Musculoskeletal joint complaint 02/02/2017 Gastrointestinal gastroesophageal reflux 02/02/2017 Dermatologic No rash 04/2017 Neurologic No alteration of consciousness 02/02/2017 Psychiatric anxiety 0604/2017 Constitutional recent illness 01/15/2017 Constitutional No anorexia 01/15/2017 Constitutional No chills 01/15/2017 Constitutional No night sweats 01/15/2017 Constitutional No fatigue 01/15/2017 Constitutional No diaphoresis 01/15/2017 Constitutional No fever 01/15/2017 Constitutional No insomnia 01/15/2017 Constitutional No weight gain 01/15/2017 Constitutional No weight loss 01/15/2017 Constitutional No malaise 01/15/2017 Eyes No eye discharge Eyes No eye erythema Ears/Nose/Throat/Neck nasal allergies 01/15/2017 Ears/Nose/Throat/Neck nasal discharge 01/15/2017 Ears/Nose/Throat/Neck sinus congestion 01/15/2017 Ears/Nose/Throat/Neck No sore throat 01/15/2017 Cardiovascular No chest pain/pressure 01/15/2017 Cardiovascular No edema 01/15/2017 Respiratory productive sputum 01/15/2017 Respiratory chest congestion 01/15/2017 Respiratory cough 2016 Gastrointestinal No abdominal pain 01/15/2017 Musculoskeletal joint complaint 01/15/2017 Dermatologic No rash Neurologic No alteration of consciousness 01/15/2017 Constitutional No recent illness 01/04/2017 Constitutional No chills 01/04/2017 Constitutional No diaphoresis 01/04/2017 Constitutional No fatigue 01/04/2017 Constitutional No fever 01/04/2017 Constitutional insomnia 01/04/2017 Constitutional No malaise 01/04/2017 Eyes No eye discharge Eyes No eye erythema 06/2017 Ears/Nose/Throat/Neck No dizziness 01/04/2017 Ears/Nose/Throat/Neck No headache 01/04/2017 Ears/Nose/Throat/Neck No nasal allergies 01/04/2017 Ears/Nose/Throat/Neck No nasal discharge 01/04/2017 Ears/Nose/Throat/Neck No sore throat 01/04/2017 Ears/Nose/Throat/Neck No sinus congestion 01/04/2017 Cardiovascular No chest pain/pressure 01/04/2017 Cardiovascular No dyspnea 01/04/2017 Cardiovascular edema 06/2017 Cardiovascular No exercise intolerance 01/04/2017 Cardiovascular No fatigue 01/04/2017 Cardiovascular hypertension 01/04/2017 Respiratory No productive sputum 01/04/2017 Respiratory No chest congestion 01/04/2017 Respiratory No cough 06/2017 Respiratory dyspnea on exertion 01/04/2017 Respiratory No dyspnea 0 01/04/2017 Gastrointestinal No abdominal pain 01/04/2017 Gastrointestinal No constipation 01/04/2017 Gastrointestinal No nausea 01/04/2017 Gastrointestinal No vomiting 01/04/2017 Genitourinary/Nephrology No dysuria 01/04/2017 Musculoskeletal No stiffness 01/04/2017 Musculoskeletal No swelling 01/04/2017 Musculoskeletal joint complaint 01/04/2017 Musculoskeletal No muscle weakness 01/04/2017 Musculoskeletal No myalgias 01/04/2017 Dermatologic No rash 06/2017 Dermatologic No scar 06/2017 Neurologic No dizziness 01/04/2017 Neurologic No headache 0 01/04/2017 Neurologic No neck pain 01/04/2017 Neurologic No syncope Psychiatric anxiety 12/25 Psychiatric depression 0 01/04/2017 Constitutional No recent illness 09/07/2016 Constitutional No chills 09/07/2016 Constitutional No diaphoresis 09/07/2016 Constitutional No fatigue 09/07/2016 Constitutional No fever 09/07/2016 Constitutional insomnia 09/07/2016 Constitutional No malaise 09/07/2016 Eyes No eye discharge Eyes No eye erythema 07/2017 Ears/Nose/Throat/Neck No dizziness 09/07/2016 Ears/Nose/Throat/Neck No headache 09/07/2016 Ears/Nose/Throat/Neck No nasal allergies 09/07/2016 Ears/Nose/Throat/Neck No nasal discharge 09/07/2016 Ears/Nose/Throat/Neck No sore throat 09/07/2016 Ears/Nose/Throat/Neck No sinus congestion 09/07/2016 Cardiovascular No chest pain/pressure 09/07/2016 Cardiovascular No dyspnea 09/07/2016 Cardiovascular edema 07/2017 Cardiovascular No exercise intolerance 09/07/2016 Cardiovascular No fatigue 09/07/2016 Cardiovascular hypertension 09/07/2016 Respiratory No productive sputum 09/07/2016 Respiratory No chest congestion 09/07/2016 Respiratory No cough 07/2017 Respiratory dyspnea on exertion 09/07/2016 Respiratory No dyspnea 0 09/07/2016 Gastrointestinal No abdominal pain 09/07/2016 Gastrointestinal No constipation 09/07/2016 Gastrointestinal No nausea 09/07/2016 Gastrointestinal No vomiting 09/07/2016 Genitourinary/Nephrology No dysuria 09/07/2016 Musculoskeletal No stiffness 09/07/2016 Musculoskeletal No swelling 09/07/2016 Musculoskeletal joint complaint 09/07/2016 Musculoskeletal No muscle weakness 09/07/2016 Musculoskeletal No myalgias 09/07/2016 Dermatologic No rash 07/2017 Dermatologic No scar 07/2017 Neurologic No dizziness 09/07/2016 Neurologic No headache 0 09/07/2016 Neurologic No neck pain 09/07/2016 Neurologic No syncope Psychiatric anxiety 08/27 Psychiatric depression 0 09/07/2016 Constitutional No recent illness 07/06/2016 Constitutional No chills 07/06/2016 Constitutional No diaphoresis 07/06/2016 Constitutional No fatigue 07/06/2016 Constitutional No fever 07/06/2016 Constitutional insomnia 07/06/2016 Constitutional No malaise 07/06/2016 Eyes No eye discharge Eyes No eye erythema 05/2016 Ears/Nose/Throat/Neck No dizziness 07/06/2016 Ears/Nose/Throat/Neck No headache 07/06/2016 Ears/Nose/Throat/Neck No nasal allergies 07/06/2016 Ears/Nose/Throat/Neck No nasal discharge 07/06/2016 Ears/Nose/Throat/Neck No sore throat 07/06/2016 Ears/Nose/Throat/Neck No sinus congestion 07/06/2016 Cardiovascular No chest pain/pressure 07/06/2016 Cardiovascular No dyspnea 07/06/2016 Cardiovascular edema 05/2016 Cardiovascular No exercise intolerance 07/06/2016 Cardiovascular No fatigue 07/06/2016 Cardiovascular hypertension 07/06/2016 Respiratory No productive sputum 07/06/2016 Respiratory No chest congestion 07/06/2016 Respiratory No cough 05/2016 Respiratory dyspnea on exertion 07/06/2016 Respiratory No dyspnea 1 09/05/2015 Gastrointestinal No abdominal pain 07/06/2016 Gastrointestinal No constipation 07/06/2016 Gastrointestinal diarrhea 07/06/2016 Gastrointestinal No nausea 07/06/2016 Gastrointestinal No vomiting 07/06/2016 Genitourinary/Nephrology No dysuria 07/06/2016 Musculoskeletal No stiffness 07/06/2016 Musculoskeletal No swelling 07/06/2016 Musculoskeletal joint complaint 07/06/2016 Musculoskeletal No muscle weakness 07/06/2016 Musculoskeletal No myalgias 07/06/2016 Dermatologic No rash 05/2016 Dermatologic No scar 05/2016 Neurologic No dizziness 07/06/2016 Neurologic No headache 1 09/05/2015 Neurologic No neck pain 07/06/2016 Neurologic No syncope Psychiatric anxiety 06/27 Psychiatric depression 1 09/05/2015 Constitutional No recent illness 06/08/2016 Constitutional No chills 06/08/2016 Constitutional No diaphoresis 06/08/2016 Constitutional No fatigue 06/08/2016 Constitutional No fever 06/08/2016 Constitutional insomnia 06/08/2016 Constitutional No malaise 06/08/2016 Eyes No eye discharge Eyes No eye erythema Ears/Nose/Throat/Neck No dizziness 06/08/2016 Ears/Nose/Throat/Neck No headache 06/08/2016 Ears/Nose/Throat/Neck No nasal allergies 06/08/2016 Ears/Nose/Throat/Neck No nasal discharge 06/08/2016 Ears/Nose/Throat/Neck No sore throat 06/08/2016 Ears/Nose/Throat/Neck No sinus congestion 06/08/2016 Cardiovascular No chest pain/pressure 06/08/2016 Cardiovascular No dyspnea 06/08/2016 Cardiovascular edema Cardiovascular No exercise intolerance 06/08/2016 Cardiovascular No fatigue 06/08/2016 Cardiovascular hypertension 06/08/2016 Respiratory No productive sputum 06/08/2016 Respiratory No chest congestion 06/08/2016 Respiratory No cough Respiratory dyspnea on exertion 06/08/2016 Respiratory No dyspnea 1 Gastrointestinal No abdominal pain 06/08/2016 Gastrointestinal No constipation 06/08/2016 Gastrointestinal diarrhea 06/08/2016 Gastrointestinal No nausea 06/08/2016 Gastrointestinal No vomiting 06/08/2016 Genitourinary/Nephrology No dysuria 06/08/2016 Musculoskeletal No stiffness 06/08/2016 Musculoskeletal No swelling 06/08/2016 Musculoskeletal joint complaint 06/08/2016 Musculoskeletal No muscle weakness 06/08/2016 Musculoskeletal No myalgias 06/08/2016 Dermatologic No rash Dermatologic No scar Neurologic No dizziness 06/08/2016 Neurologic No headache 1 Neurologic No neck pain 06/08/2016 Neurologic No syncope Psychiatric anxiety 05/27 Psychiatric depression 1 Constitutional No recent illness 04/06/2016 Constitutional No anorexia 04/06/2016 Constitutional No night sweats 04/06/2016 Constitutional No chills 04/06/2016 Constitutional No diaphoresis 04/06/2016 Constitutional No fatigue 04/06/2016 Constitutional No fever 04/06/2016 Constitutional insomnia 04/06/2016 Constitutional No malaise 04/06/2016 Constitutional No weight loss 04/06/2016 Constitutional No weight gain 04/06/2016 Eyes No eye discharge Eyes No eye erythema 06/2016 Ears/Nose/Throat/Neck No dizziness 04/06/2016 Ears/Nose/Throat/Neck No headache 04/06/2016 Ears/Nose/Throat/Neck No nasal allergies 04/06/2016 Ears/Nose/Throat/Neck No nasal discharge 04/06/2016 Ears/Nose/Throat/Neck No sinus congestion 04/06/2016 Ears/Nose/Throat/Neck No sore throat 04/06/2016 Cardiovascular No chest pain/pressure 04/06/2016 Cardiovascular No dyspnea 04/06/2016 Cardiovascular edema 06/2016 Cardiovascular No exercise intolerance 04/06/2016 Cardiovascular No fatigue 04/06/2016 Cardiovascular hypertension 04/06/2016 Respiratory No productive sputum 04/06/2016 Respiratory No chest congestion 04/06/2016 Respiratory No cough 06/2016 Respiratory dyspnea on exertion 04/06/2016 Respiratory No dyspnea 0 04/06/2016 Gastrointestinal No abdominal pain 04/06/2016 Gastrointestinal No constipation 04/06/2016 Gastrointestinal diarrhea 04/06/2016 Gastrointestinal No nausea 04/06/2016 Gastrointestinal No vomiting 04/06/2016 Genitourinary/Nephrology No dysuria 04/06/2016 Musculoskeletal No stiffness 04/06/2016 Musculoskeletal No swelling 04/06/2016 Musculoskeletal joint complaint 04/06/2016 Musculoskeletal No muscle weakness 04/06/2016 Musculoskeletal No myalgias 04/06/2016 Dermatologic No rash 06/2016 Dermatologic No scar 06/2016 Neurologic No dizziness 04/06/2016 Neurologic No headache 0 04/06/2016 Neurologic No neck pain 04/06/2016 Neurologic No syncope Psychiatric anxiety 03/27 Psychiatric depression 0 04/06/2016 Constitutional No chills 03/09/2016 Constitutional No diaphoresis 03/09/2016 Constitutional No fatigue 03/09/2016 Constitutional No fever 03/09/2016 Eyes No eye discharge Eyes No eye erythema Ears/Nose/Throat/Neck No dizziness 03/09/2016 Ears/Nose/Throat/Neck No headache 03/09/2016 Ears/Nose/Throat/Neck No nasal allergies 03/09/2016 Ears/Nose/Throat/Neck No nasal discharge 03/09/2016 Ears/Nose/Throat/Neck No sore throat 03/09/2016 Ears/Nose/Throat/Neck No sinus congestion 03/09/2016 Cardiovascular No chest pain/pressure 03/09/2016 Cardiovascular No dyspnea 03/09/2016 Cardiovascular edema Cardiovascular No exercise intolerance 03/09/2016 Cardiovascular No fatigue 03/09/2016 Cardiovascular hypertension 03/09/2016 Respiratory No productive sputum 03/09/2016 Respiratory No chest congestion 03/09/2016 Respiratory No cough Respiratory No dyspnea 0 03/09/2016 Gastrointestinal No abdominal pain 03/09/2016 Gastrointestinal No constipation 03/09/2016 Gastrointestinal diarrhea 03/09/2016 Gastrointestinal No nausea 03/09/2016 Gastrointestinal No vomiting 03/09/2016 Musculoskeletal No stiffness 03/09/2016 Musculoskeletal No swelling 03/09/2016 Musculoskeletal No muscle weakness 03/09/2016 Musculoskeletal No myalgias 03/09/2016 Dermatologic No rash Dermatologic No scar Neurologic No dizziness 03/09/2016 Neurologic No headache 0 03/09/2016 Neurologic No neck pain 03/09/2016 Neurologic No syncope Psychiatric anxiety 02/24 Psychiatric depression 0 03/09/2016 Constitutional No recent illness 03/09/2016 Constitutional No anorexia 03/09/2016 Constitutional No night sweats 03/09/2016 Constitutional insomnia 03/09/2016 Constitutional No malaise 03/09/2016 Constitutional No weight loss 03/09/2016 Constitutional No weight gain 03/09/2016 Genitourinary/Nephrology No dysuria 03/09/2016 Respiratory dyspnea on exertion 03/09/2016 Musculoskeletal joint complaint 03/09/2016 Constitutional No chills 01/18/2016 Constitutional No diaphoresis 01/18/2016 Constitutional No fatigue 01/18/2016 Constitutional No fever 01/18/2016 Eyes No eye discharge Eyes No eye erythema Ears/Nose/Throat/Neck No dizziness 01/18/2016 Ears/Nose/Throat/Neck No headache 01/18/2016 Ears/Nose/Throat/Neck No nasal allergies 01/18/2016 Ears/Nose/Throat/Neck No nasal discharge 01/18/2016 Ears/Nose/Throat/Neck No sore throat 01/18/2016 Ears/Nose/Throat/Neck No sinus congestion 01/18/2016 Cardiovascular No chest pain/pressure 01/18/2016 Cardiovascular No dyspnea 01/18/2016 Cardiovascular edema Cardiovascular No exercise intolerance 01/18/2016 Cardiovascular No fatigue 01/18/2016 Cardiovascular hypertension 01/18/2016 Respiratory No productive sputum 01/18/2016 Respiratory No chest congestion 01/18/2016 Respiratory No cough Respiratory No dyspnea 0 01/18/2016 Gastrointestinal No abdominal pain 01/18/2016 Gastrointestinal No constipation 01/18/2016 Gastrointestinal No diarrhea 01/18/2016 Gastrointestinal No nausea 01/18/2016 Gastrointestinal No vomiting 01/18/2016 Musculoskeletal No stiffness 01/18/2016 Musculoskeletal No swelling 01/18/2016 Musculoskeletal No muscle weakness 01/18/2016 Musculoskeletal No myalgias 01/18/2016 Dermatologic No rash Dermatologic No scar Neurologic No dizziness 01/18/2016 Neurologic No headache 0 01/18/2016 Neurologic No neck pain 01/18/2016 Neurologic No syncope Psychiatric anxiety 12/26 Psychiatric depression 0 01/18/2016 Constitutional No recent illness 09/09/2015 Constitutional No anorexia 09/09/2015 Constitutional No night sweats 09/09/2015 Constitutional No chills 09/09/2015 Constitutional No diaphoresis 09/09/2015 Constitutional No fatigue 09/09/2015 Constitutional No fever 09/09/2015 Constitutional No insomnia 09/09/2015 Constitutional No malaise 09/09/2015 Constitutional No weight loss 09/09/2015 Constitutional No weight gain 09/09/2015 Constitutional No obesity 09/09/2015 Respiratory dyspnea 08/27 Respiratory dyspnea on exertion 09/09/2015 Respiratory cough 2015 Respiratory No cigarette smoking 09/09/2015 Respiratory No chest tightness 09/09/2015 Respiratory No chest congestion 09/09/2015 Respiratory No snoring 0 09/09/2015 Cardiovascular No chest pain/pressure 09/09/2015 Ears/Nose/Throat/Neck No oral pain 09/09/2015 Ears/Nose/Throat/Neck No otitis media 09/09/2015 Ears/Nose/Throat/Neck No otalgia 09/09/2015 Ears/Nose/Throat/Neck nasal allergies 09/09/2015 Ears/Nose/Throat/Neck nasal discharge 09/09/2015 Ears/Nose/Throat/Neck No sore throat 09/09/2015 Ears/Nose/Throat/Neck No postnasal drip 09/09/2015 Gastrointestinal abdominal pain 09/09/2015 Gastrointestinal constipation 09/09/2015 Gastrointestinal diarrhea 09/09/2015 Genitourinary/Nephrology No dysuria 09/09/2015 Genitourinary/Nephrology No urinary incontinence 09/09/2015 Genitourinary/Nephrology No urinary frequency 09/09/2015 Genitourinary/Nephrology No urinary urgenc y 09/09/2015 Musculoskeletal joint complaint 09/09/2015 Musculoskeletal back pain 09/09/2015 Musculoskeletal myalgias 09/09/2015 Dermatologic No rash Dermatologic No sores Psychiatric anxiety 08/27 Psychiatric No depression 09/09/2015 Ears/Nose/Throat/Neck No dizziness 09/09/2015 Ears/Nose/Throat/Neck No headache 09/09/2015 Constitutional No insomnia 12/25/2014 Cardiovascular No chest pain/pressure 12/25/2014 Cardiovascular edema 08/2014 Respiratory dyspnea on exertion 12/25/2014 Respiratory No cough 08/2014 Respiratory No chest tightness 12/25/2014 Gastrointestinal No diarrhea 12/25/2014 Gastrointestinal No abdominal pain 12/25/2014 Genitourinary/Nephrology No dysuria 12/25/2014 Constitutional No recent illness 12/25/2014 Constitutional No chills 12/25/2014 Constitutional No diaphoresis 12/25/2014 Constitutional No fatigue 12/25/2014 Constitutional No fever 12/25/2014 Eyes No eye discharge Eyes No eye erythema 08/2014 Ears/Nose/Throat/Neck No dizziness 12/25/2014 Ears/Nose/Throat/Neck No headache 12/25/2014 Ears/Nose/Throat/Neck No nasal allergies 12/25/2014 Ears/Nose/Throat/Neck No nasal discharge 12/25/2014 Ears/Nose/Throat/Neck No sore throat 12/25/2014 Ears/Nose/Throat/Neck No sinus congestion 12/25/2014 Respiratory No productive sputum 12/25/2014 Respiratory No chest congestion 12/25/2014 Respiratory No dyspnea 0 12/25/2014 Gastrointestinal No constipation 12/25/2014 Gastrointestinal No nausea 12/25/2014 Gastrointestinal No vomiting 12/25/2014 Musculoskeletal No stiffness 12/25/2014 Musculoskeletal No swelling 12/25/2014 Musculoskeletal No muscle weakness 12/25/2014 Musculoskeletal No myalgias 12/25/2014 Psychiatric anxiety 05/0 08/2014 Psychiatric depression 0 12/25/2014 Constitutional No chills 10/13/2014 Constitutional No diaphoresis 10/13/2014 Constitutional No fatigue 10/13/2014 Constitutional No fever 10/13/2014 Eyes No eye discharge Eyes No eye erythema Ears/Nose/Throat/Neck No dizziness 10/13/2014 Ears/Nose/Throat/Neck No headache 10/13/2014 Ears/Nose/Throat/Neck No nasal allergies 10/13/2014 Ears/Nose/Throat/Neck No nasal discharge 10/13/2014 Ears/Nose/Throat/Neck No sore throat 10/13/2014 Ears/Nose/Throat/Neck No sinus congestion 10/13/2014 Respiratory No productive sputum 10/13/2014 Respiratory No chest congestion 10/13/2014 Respiratory No cough Respiratory No dyspnea 0 10/13/2014 Gastrointestinal No abdominal pain 10/13/2014 Gastrointestinal No constipation 10/13/2014 Gastrointestinal No diarrhea 10/13/2014 Gastrointestinal No nausea 10/13/2014 Gastrointestinal No vomiting 10/13/2014 Musculoskeletal No stiffness 10/13/2014 Musculoskeletal No swelling 10/13/2014 Musculoskeletal No muscle weakness 10/13/2014 Musculoskeletal No myalgias 10/13/2014 Psychiatric anxiety 09/27 Psychiatric depression 0 10/13/2014 Dermatologic No rash Dermatologic No scar Neurologic No dizziness 10/13/2014 Neurologic No headache 0 10/13/2014 Neurologic No neck pain 10/13/2014 Neurologic No syncope Cardiovascular No chest pain/pressure 10/13/2014 Cardiovascular No dyspnea 10/13/2014 Cardiovascular edema Cardiovascular No exercise intolerance 10/13/2014 Cardiovascular No fatigue 10/13/2014 Cardiovascular hypertension 10/13/2014 Constitutional No chills 08/28/2014 Constitutional No diaphoresis 08/28/2014 Constitutional No fatigue 08/28/2014 Constitutional No fever 08/28/2014 Eyes No eye discharge Eyes No eye erythema 09/2014 Ears/Nose/Throat/Neck No dizziness 08/28/2014 Ears/Nose/Throat/Neck No headache 08/28/2014 Ears/Nose/Throat/Neck No nasal allergies 08/28/2014 Ears/Nose/Throat/Neck No nasal discharge 08/28/2014 Ears/Nose/Throat/Neck No sore throat 08/28/2014 Ears/Nose/Throat/Neck No sinus congestion 08/28/2014 Respiratory No productive sputum 08/28/2014 Respiratory No chest congestion 08/28/2014 Respiratory No cough 09/2014 Respiratory No dyspnea 0 08/28/2014 Gastrointestinal No abdominal pain 08/28/2014 Gastrointestinal No constipation 08/28/2014 Gastrointestinal No diarrhea 08/28/2014 Gastrointestinal No nausea 08/28/2014 Gastrointestinal No vomiting 08/28/2014 Musculoskeletal No stiffness 08/28/2014 Musculoskeletal No swelling 08/28/2014 Musculoskeletal No muscle weakness 08/28/2014 Musculoskeletal No myalgias 08/28/2014 Psychiatric anxiety 01/0 09/2014 Psychiatric depression 0 08/28/2014 Constitutional No recent illness 08/28/2014 Constitutional recent illness 05/07/2014 Constitutional No anorexia 05/07/2014 Constitutional fatigue 0 05/07/2014 Constitutional No fever 05/07/2014 Constitutional No insomnia 05/07/2014 Constitutional chills Constitutional No diaphoresis 05/07/2014 Constitutional No night sweats 05/07/2014 Eyes No eye discharge Eyes No eye erythema 06/2014 Ears/Nose/Throat/Neck nasal allergies 05/07/2014 Ears/Nose/Throat/Neck nasal discharge 05/07/2014 Ears/Nose/Throat/Neck otalgia 05/07/2014 Ears/Nose/Throat/Neck sore throat 05/07/2014 Ears/Nose/Throat/Neck sinus congestion 05/07/2014 Ears/Nose/Throat/Neck No dizziness 05/07/2014 Ears/Nose/Throat/Neck No headache 05/07/2014 Cardiovascular No chest pain/pressure 05/07/2014 Cardiovascular edema 06/2014 Cardiovascular fatigue 0 05/07/2014 Gastrointestinal No abdominal pain 05/07/2014 Gastrointestinal No constipation 05/07/2014 Gastrointestinal No diarrhea 05/07/2014 Gastrointestinal No vomiting 05/07/2014 Gastrointestinal No nausea 05/07/2014 Genitourinary/Nephrology No dysuria 05/07/2014 Genitourinary/Nephrology urinary urgency 05/07/2014 Genitourinary/Nephrology urinary frequency 05/07/2014 Dermatologic No rash 06/2014 Neurologic No alteration of consciousness 05/07/2014 Psychiatric No depression 05/07/2014 Constitutional No chills 04/16/2014 Constitutional No diaphoresis 04/16/2014 Constitutional No fatigue 04/16/2014 Constitutional No fever 04/16/2014 Eyes No eye discharge Eyes No eye erythema Ears/Nose/Throat/Neck No dizziness 04/16/2014 Ears/Nose/Throat/Neck No headache 04/16/2014 Ears/Nose/Throat/Neck No nasal allergies 04/16/2014 Ears/Nose/Throat/Neck No nasal discharge 04/16/2014 Ears/Nose/Throat/Neck No sore throat 04/16/2014 Ears/Nose/Throat/Neck No sinus congestion 04/16/2014 Respiratory No productive sputum 04/16/2014 Respiratory No chest congestion 04/16/2014 Respiratory No cough Respiratory No dyspnea 0 04/16/2014 Gastrointestinal No abdominal pain 04/16/2014 Gastrointestinal No constipation 04/16/2014 Gastrointestinal No diarrhea 04/16/2014 Gastrointestinal No nausea 04/16/2014 Gastrointestinal No vomiting 04/16/2014 Musculoskeletal No stiffness 04/16/2014 Musculoskeletal No swelling 04/16/2014 Musculoskeletal No muscle weakness 04/16/2014 Musculoskeletal No myalgias 04/16/2014 Psychiatric anxiety 03/28 Psychiatric depression 0 04/16/2014 Constitutional No recent illness 01/27/2014 Constitutional No anorexia 01/27/2014 Constitutional No night sweats 01/27/2014 Constitutional No chills 01/27/2014 Constitutional No diaphoresis 01/27/2014 Constitutional fatigue 0 01/27/2014 Constitutional No fever 01/27/2014 Constitutional No insomnia 01/27/2014 Constitutional No malaise 01/27/2014 Constitutional No weight loss 01/27/2014 Constitutional No weight gain 01/27/2014 Constitutional No chills 01/21/2014 Constitutional No diaphoresis 01/21/2014 Constitutional No fatigue 01/21/2014 Constitutional No fever 01/21/2014 Eyes No eye discharge Eyes No eye erythema Ears/Nose/Throat/Neck No dizziness 01/21/2014 Ears/Nose/Throat/Neck No headache 01/21/2014 Ears/Nose/Throat/Neck No nasal allergies 01/21/2014 Ears/Nose/Throat/Neck No nasal discharge 01/21/2014 Ears/Nose/Throat/Neck No sore throat 01/21/2014 Ears/Nose/Throat/Neck No sinus congestion 01/21/2014 Respiratory No productive sputum 01/21/2014 Respiratory No chest congestion 01/21/2014 Respiratory No cough Respiratory No dyspnea 0 01/21/2014 Gastrointestinal No abdominal pain 01/21/2014 Gastrointestinal No constipation 01/21/2014 Gastrointestinal No diarrhea 01/21/2014 Gastrointestinal No nausea 01/21/2014 Gastrointestinal No vomiting 01/21/2014 Musculoskeletal No stiffness 01/21/2014 Musculoskeletal No swelling 01/21/2014 Musculoskeletal No muscle weakness 01/21/2014 Musculoskeletal No myalgias 01/21/2014 Psychiatric anxiety 12/26 Psychiatric depression 0 01/21/2014 Constitutional No recent illness 01/07/2014 Constitutional No anorexia 01/07/2014 Constitutional No night sweats 01/07/2014 Constitutional No chills 01/07/2014 Constitutional No diaphoresis 01/07/2014 Constitutional No fatigue 01/07/2014 Constitutional No fever 01/07/2014 Constitutional No insomnia 01/07/2014 Constitutional No malaise 01/07/2014 Eyes No eye discharge Eyes No eye erythema Cardiovascular No chest pain/pressure 01/07/2014 Respiratory No cough Gastrointestinal No abdominal pain 01/07/2014 Gastrointestinal No constipation 01/07/2014 Gastrointestinal No diarrhea 01/07/2014 Genitourinary/Nephrology No dysuria 01/07/2014 Dermatologic erythema Dermatologic No rash Constitutional recent illness 12/26/2013 Constitutional No anorexia 12/26/2013 Constitutional No night sweats 12/26/2013 Constitutional No chills 12/26/2013 Constitutional No diaphoresis 12/26/2013 Constitutional fatigue 0 12/26/2013 Constitutional No fever 12/26/2013 Constitutional No insomnia 12/26/2013 Constitutional No malaise 12/26/2013 Eyes No eye discharge Eyes No eye erythema 09/2013 Cardiovascular No chest pain/pressure 12/26/2013 Gastrointestinal No abdominal pain 12/26/2013 Gastrointestinal No constipation 12/26/2013 Gastrointestinal No diarrhea 12/26/2013 Genitourinary/Nephrology No dysuria 12/26/2013 Musculoskeletal No joint complaint 12/26/2013 Dermatologic No rash 09/2013 Dermatologic No sores Constitutional No recent illness 11/12/2013 Constitutional No anorexia 11/12/2013 Constitutional No night sweats 11/12/2013 Constitutional No chills 11/12/2013 Constitutional No diaphoresis 11/12/2013 Constitutional No fatigue 11/12/2013 Constitutional No fever 11/12/2013 Constitutional No insomnia 11/12/2013 Constitutional No malaise 11/12/2013 Eyes No eye discharge Eyes No eye erythema Cardiovascular No chest pain/pressure 11/12/2013 Respiratory No cough Gastrointestinal No abdominal pain 11/12/2013 Gastrointestinal No constipation 11/12/2013 Gastrointestinal No diarrhea 11/12/2013 Genitourinary/Nephrology No dysuria 11/12/2013 Dermatologic No rash Dermatologic erythema Constitutional recent illness 10/09/2013 Constitutional No anorexia 10/09/2013 Constitutional No night sweats 10/09/2013 Constitutional No chills 10/09/2013 Constitutional No fatigue 10/09/2013 Constitutional No diaphoresis 10/09/2013 Constitutional No fever 10/09/2013 Constitutional No insomnia 10/09/2013 Eyes No eye discharge Eyes No eye erythema Cardiovascular No chest pain/pressure 10/09/2013 Respiratory No productive sputum 10/09/2013 Respiratory No chest congestion 10/09/2013 Respiratory No cough Gastrointestinal No abdominal pain 10/09/2013 Gastrointestinal No constipation 10/09/2013 Gastrointestinal No diarrhea 10/09/2013 Gastrointestinal No vomiting 10/09/2013 Gastrointestinal No odynophagia 10/09/2013 Genitourinary/Nephrology No dysuria 10/09/2013 Dermatologic No rash Dermatologic No sores Constitutional No chills 04/03/2013 Constitutional No diaphoresis 04/03/2013 Constitutional No fatigue 04/03/2013 Constitutional No fever 04/03/2013 Eyes No eye discharge Eyes No eye erythema 03/2013 Ears/Nose/Throat/Neck No dizziness 04/03/2013 Ears/Nose/Throat/Neck No headache 04/03/2013 Ears/Nose/Throat/Neck No nasal allergies 04/03/2013 Ears/Nose/Throat/Neck No nasal discharge 04/03/2013 Ears/Nose/Throat/Neck No sore throat 04/03/2013 Ears/Nose/Throat/Neck No sinus congestion 04/03/2013 Respiratory No productive sputum 04/03/2013 Respiratory No chest congestion 04/03/2013 Respiratory No cough 03/2013 Respiratory No dyspnea 0 04/03/2013 Gastrointestinal No abdominal pain 04/03/2013 Gastrointestinal No constipation 04/03/2013 Gastrointestinal No diarrhea 04/03/2013 Gastrointestinal No nausea 04/03/2013 Gastrointestinal No vomiting 04/03/2013 Musculoskeletal No stiffness 04/03/2013 Musculoskeletal No swelling 04/03/2013 Musculoskeletal No muscle weakness 04/03/2013 Musculoskeletal No myalgias 04/03/2013 Psychiatric anxiety 08/0 03/2013 Psychiatric depression 0 04/03/2013 Constitutional No chills 01/06/2013 Constitutional No diaphoresis 01/06/2013 Constitutional No fatigue 01/06/2013 Constitutional No fever 01/06/2013 Eyes No eye discharge Eyes No eye erythema Ears/Nose/Throat/Neck No dizziness 01/06/2013 Ears/Nose/Throat/Neck No headache 01/06/2013 Ears/Nose/Throat/Neck No nasal allergies 01/06/2013 Ears/Nose/Throat/Neck No nasal discharge 01/06/2013 Ears/Nose/Throat/Neck No sore throat 01/06/2013 Ears/Nose/Throat/Neck No sinus congestion 01/06/2013 Respiratory No productive sputum 01/06/2013 Respiratory No chest congestion 01/06/2013 Respiratory No cough Respiratory No dyspnea 0 01/06/2013 Gastrointestinal No abdominal pain 01/06/2013 Gastrointestinal No constipation 01/06/2013 Gastrointestinal No diarrhea 01/06/2013 Gastrointestinal No nausea 01/06/2013 Gastrointestinal No vomiting 01/06/2013 Musculoskeletal No stiffness 01/06/2013 Musculoskeletal No swelling 01/06/2013 Musculoskeletal No muscle weakness 01/06/2013 Musculoskeletal No myalgias 01/06/2013 Psychiatric anxiety 0510/2012 Psychiatric depression 0 01/06/2013 Constitutional No recent illness 11/21/2012 Constitutional No anorexia 11/21/2012 Constitutional No night sweats 11/21/2012 Constitutional No fatigue 11/21/2012 Constitutional No chills 11/21/2012 Constitutional No diaphoresis 11/21/2012 Constitutional No fever 11/21/2012 Constitutional No insomnia 11/21/2012 Constitutional No malaise 11/21/2012 Eyes No eye discharge Eyes No eye erythema Ears/Nose/Throat/Neck No dizziness 11/21/2012 Ears/Nose/Throat/Neck hoarseness 11/21/2012 Ears/Nose/Throat/Neck No nasal discharge 11/21/2012 Ears/Nose/Throat/Neck No sore throat 11/21/2012 Ears/Nose/Throat/Neck No sinus congestion 11/21/2012 Cardiovascular No chest pain/pressure 11/21/2012 Gastrointestinal No abdominal pain 11/21/2012 Gastrointestinal No constipation 11/21/2012 Gastrointestinal No diarrhea 11/21/2012 Gastrointestinal No nausea 11/21/2012 Gastrointestinal No vomiting 11/21/2012 Genitourinary/Nephrology No dysuria 11/21/2012 Dermatologic No rash Dermatologic No sores Musculoskeletal No myalgias 10/28/2012 Psychiatric anxiety 03/0 11/2012 Psychiatric depression 0 10/28/2012 Constitutional No chills 10/28/2012 Constitutional No diaphoresis 10/28/2012 Constitutional No fatigue 10/28/2012 Constitutional No fever 10/28/2012 Eyes No eye discharge Eyes No eye erythema 11/2012 Ears/Nose/Throat/Neck No dizziness 10/28/2012 Ears/Nose/Throat/Neck No headache 10/28/2012 Ears/Nose/Throat/Neck No nasal allergies 10/28/2012 Ears/Nose/Throat/Neck No nasal discharge 10/28/2012 Ears/Nose/Throat/Neck No sore throat 10/28/2012 Ears/Nose/Throat/Neck No sinus congestion 10/28/2012 Respiratory No productive sputum 10/28/2012 Respiratory No chest congestion 10/28/2012 Respiratory No cough 11/2012 Respiratory No dyspnea 0 10/28/2012 Gastrointestinal No abdominal pain 10/28/2012 Gastrointestinal No constipation 10/28/2012 Gastrointestinal No diarrhea 10/28/2012 Gastrointestinal No nausea 10/28/2012 Gastrointestinal No vomiting 10/28/2012 Musculoskeletal No stiffness 10/28/2012 Musculoskeletal No swelling 10/28/2012 Musculoskeletal No muscle weakness 10/28/2012 Constitutional No chills 09/30/2012 Constitutional No diaphoresis 09/30/2012 Constitutional No fatigue 09/30/2012 Constitutional No fever 09/30/2012 Eyes No eye discharge Eyes No eye erythema 11/2012 Ears/Nose/Throat/Neck No dizziness 09/30/2012 Ears/Nose/Throat/Neck No headache 09/30/2012 Ears/Nose/Throat/Neck No nasal allergies 09/30/2012 Ears/Nose/Throat/Neck No nasal discharge 09/30/2012 Ears/Nose/Throat/Neck No sore throat 09/30/2012 Ears/Nose/Throat/Neck No sinus congestion 09/30/2012 Cardiovascular No chest pain/pressure 09/30/2012 Respiratory No productive sputum 09/30/2012 Respiratory No chest congestion 09/30/2012 Respiratory No cough 11/2012 Respiratory No dyspnea 0 09/30/2012 Gastrointestinal No abdominal pain 09/30/2012 Gastrointestinal No constipation 09/30/2012 Gastrointestinal No diarrhea 09/30/2012 Gastrointestinal No nausea 09/30/2012 Gastrointestinal No vomiting 09/30/2012 Psychiatric anxiety 11/2012 Psychiatric depression 0 09/30/2012 Musculoskeletal No stiffness 09/30/2012 Musculoskeletal No swelling 09/30/2012 Musculoskeletal No muscle weakness 09/30/2012 Musculoskeletal No myalgias 09/30/2012 Constitutional No chills 08/14/2012 Constitutional No diaphoresis 08/14/2012 Constitutional No fatigue 08/14/2012 Constitutional No fever 08/14/2012 Eyes No eye discharge Eyes No eye erythema Ears/Nose/Throat/Neck No dizziness 08/14/2012 Ears/Nose/Throat/Neck No headache 08/14/2012 Ears/Nose/Throat/Neck No nasal allergies 08/14/2012 Ears/Nose/Throat/Neck No nasal discharge 08/14/2012 Ears/Nose/Throat/Neck No sore throat 08/14/2012 Ears/Nose/Throat/Neck No sinus congestion 08/14/2012 Cardiovascular No chest pain/pressure 08/14/2012 Respiratory No productive sputum 08/14/2012 Respiratory No chest congestion 08/14/2012 Respiratory No cough Respiratory No dyspnea 1 10/15/2011 Gastrointestinal No abdominal pain 08/14/2012 Gastrointestinal No constipation 08/14/2012 Gastrointestinal No diarrhea 08/14/2012 Gastrointestinal No nausea 08/14/2012 Gastrointestinal No vomiting 08/14/2012 Psychiatric anxiety 07/27 Psychiatric depression 1 10/15/2011 Constitutional No chills 08/05/2012 Constitutional No diaphoresis 08/05/2012 Constitutional No fatigue 08/05/2012 Constitutional No fever 08/05/2012 Eyes No eye discharge Eyes No eye erythema 05/2012 Ears/Nose/Throat/Neck No dizziness 08/05/2012 Ears/Nose/Throat/Neck No headache 08/05/2012 Ears/Nose/Throat/Neck No nasal allergies 08/05/2012 Ears/Nose/Throat/Neck No nasal discharge 08/05/2012 Ears/Nose/Throat/Neck No sore throat 08/05/2012 Ears/Nose/Throat/Neck No sinus congestion 08/05/2012 Cardiovascular No chest pain/pressure 08/05/2012 Respiratory No productive sputum 08/05/2012 Respiratory No chest congestion 08/05/2012 Respiratory No cough 05/2012 Respiratory No dyspnea 1 10/06/2011 Gastrointestinal No abdominal pain 08/05/2012 Gastrointestinal No constipation 08/05/2012 Gastrointestinal No diarrhea 08/05/2012 Gastrointestinal No nausea 08/05/2012 Gastrointestinal No vomiting 08/05/2012 Psychiatric anxiety 07/27 Psychiatric depression 1 10/06/2011 Constitutional No chills 07/15/2012 Constitutional No diaphoresis 07/15/2012 Constitutional No fatigue 07/15/2012 Constitutional No fever 07/15/2012 Eyes No eye discharge Eyes No eye erythema Ears/Nose/Throat/Neck No dizziness 07/15/2012 Ears/Nose/Throat/Neck No headache 07/15/2012 Ears/Nose/Throat/Neck No nasal allergies 07/15/2012 Ears/Nose/Throat/Neck No nasal discharge 07/15/2012 Ears/Nose/Throat/Neck No sinus congestion 07/15/2012 Ears/Nose/Throat/Neck No sore throat 07/15/2012 Cardiovascular No chest pain/pressure 07/15/2012 Respiratory No productive sputum 07/15/2012 Respiratory No chest congestion 07/15/2012 Respiratory No cough Respiratory No dyspnea 1 09/14/2011 Gastrointestinal No abdominal pain 07/15/2012 Gastrointestinal No constipation 07/15/2012 Gastrointestinal No diarrhea 07/15/2012 Gastrointestinal No nausea 07/15/2012 Gastrointestinal No vomiting 07/15/2012 Psychiatric anxiety 06/27 Psychiatric depression 1 09/14/2011 Constitutional No recent illness 05/27/2012 Constitutional No chills 05/27/2012 Constitutional No fatigue 05/27/2012 Constitutional No fever 05/27/2012 Constitutional No insomnia 05/27/2012 Constitutional No malaise 05/27/2012 Cardiovascular No chest pain/pressure 05/27/2012 Cardiovascular No dyspnea 05/27/2012 Cardiovascular No edema 05/27/2012 Cardiovascular No exercise intolerance 05/27/2012 Cardiovascular No fatigue 05/27/2012 Cardiovascular No near-syncope/dizziness 05/27/2012 Respiratory No chest tightness 05/27/2012 Respiratory No cigarette smoking 05/27/2012 Respiratory No cough 08/2011 Respiratory No dyspnea 1 Respiratory No pedal edema 05/27/2012 Respiratory No snoring 1 Respiratory No wheezing 05/27/2012 Constitutional No insomnia 05/03/2012 Constitutional No recent illness 05/03/2012 Constitutional No anorexia 05/03/2012 Constitutional No night sweats 05/03/2012 Constitutional No chills 05/03/2012 Constitutional No diaphoresis 05/03/2012 Constitutional No fever 05/03/2012 Constitutional No fatigue 05/03/2012 Eyes No eye discharge Eyes No eye erythema 02/2012 Ears/Nose/Throat/Neck No dizziness 05/03/2012 Ears/Nose/Throat/Neck No nasal discharge 05/03/2012 Ears/Nose/Throat/Neck No sinus congestion 05/03/2012 Ears/Nose/Throat/Neck No sore throat 05/03/2012 Cardiovascular No chest pain/pressure 05/03/2012 Cardiovascular No dyspnea 05/03/2012 Respiratory No chest congestion 05/03/2012 Respiratory No cough 02/2012 Gastrointestinal No abdominal pain 05/03/2012 Gastrointestinal No constipation 05/03/2012 Gastrointestinal No diarrhea 05/03/2012 Gastrointestinal No nausea 05/03/2012 Gastrointestinal No vomiting 05/03/2012 Musculoskeletal No joint complaint 05/03/2012 Dermatologic No rash 02/2012 Cardiovascular No near-syncope/dizziness 04/23/2012 Respiratory No chest tightness 04/23/2012 Respiratory No cigarette smoking 04/23/2012 Respiratory No cough Respiratory No dyspnea 0 04/23/2012 Respiratory No pedal edema 04/23/2012 Respiratory No snoring 0 04/23/2012 Respiratory No wheezing 04/23/2012 Psychiatric No anxiety 0 04/23/2012 Psychiatric No depression 04/23/2012 Constitutional No recent illness 04/23/2012 Constitutional No chills 04/23/2012 Constitutional No fatigue 04/23/2012 Constitutional No fever 04/23/2012 Constitutional No insomnia 04/23/2012 Constitutional No malaise 04/23/2012 Cardiovascular No chest pain/pressure 04/23/2012 Cardiovascular No dyspnea 04/23/2012 Cardiovascular edema Cardiovascular No exercise intolerance 04/23/2012 Cardiovascular No fatigue 04/23/2012 Constitutional No recent illness 03/25/2012 Constitutional No anorexia 03/25/2012 Constitutional No night sweats 03/25/2012 Constitutional No chills 03/25/2012 Constitutional No diaphoresis 03/25/2012 Constitutional No fatigue 03/25/2012 Constitutional No fever 03/25/2012 Constitutional No insomnia 03/25/2012 Constitutional No malaise 03/25/2012 Eyes No eye discharge Eyes No eye erythema Ears/Nose/Throat/Neck No dizziness 03/25/2012 Ears/Nose/Throat/Neck No headache 03/25/2012 Ears/Nose/Throat/Neck No nasal discharge 03/25/2012 Respiratory No productive sputum 03/25/2012 Respiratory No chest congestion 03/25/2012 Respiratory No cough Gastrointestinal No vomiting 03/25/2012 Gastrointestinal No nausea 03/25/2012 Gastrointestinal No constipation 03/25/2012 Gastrointestinal No diarrhea 03/25/2012 Genitourinary/Nephrology No dysuria 03/25/2012 Constitutional No recent illness 03/12/2012 Constitutional No anorexia 03/12/2012 Constitutional No night sweats 03/12/2012 Constitutional No chills 03/12/2012 Constitutional No diaphoresis 03/12/2012 Constitutional No fatigue 03/12/2012 Constitutional No fever 03/12/2012 Constitutional No insomnia 03/12/2012 Constitutional No malaise 03/12/2012 Constitutional No obesity 03/12/2012 Eyes No eye discharge Eyes No eye erythema Ears/Nose/Throat/Neck No dizziness 03/12/2012 Ears/Nose/Throat/Neck No headache 03/12/2012 Ears/Nose/Throat/Neck No nasal allergies 03/12/2012 Ears/Nose/Throat/Neck No nasal discharge 03/12/2012 Ears/Nose/Throat/Neck No otalgia 03/12/2012 Respiratory No productive sputum 03/12/2012 Respiratory No chest congestion 03/12/2012 Respiratory No cough Gastrointestinal No abdominal pain 03/12/2012 Gastrointestinal No diarrhea 03/12/2012 Gastrointestinal No constipation 03/12/2012 Gastrointestinal gas and bloating 03/12/2012 Gastrointestinal No nausea 03/12/2012 Gastrointestinal No vomiting 03/12/2012 Genitourinary/Nephrology No dysuria 03/12/2012 Dermatologic No rash Dermatologic No sores Dermatologic mole change 03/12/2012 Neurologic No alteration of consciousness 03/12/2012 Constitutional No chills 01/23/2012 Constitutional No diaphoresis 01/23/2012 Constitutional No fatigue 01/23/2012 Constitutional No fever 01/23/2012 Eyes No eye discharge Eyes No eye erythema Ears/Nose/Throat/Neck No dizziness 01/23/2012 Ears/Nose/Throat/Neck No nasal allergies 01/23/2012 Ears/Nose/Throat/Neck No nasal discharge 01/23/2012 Ears/Nose/Throat/Neck No sinus congestion 01/23/2012 Ears/Nose/Throat/Neck No sore throat 01/23/2012 Respiratory No productive sputum 01/23/2012 Respiratory No chest congestion 01/23/2012 Respiratory No cough Gastrointestinal No abdominal pain 01/23/2012 Gastrointestinal No constipation 01/23/2012 Gastrointestinal No diarrhea 01/23/2012 Gastrointestinal No nausea 01/23/2012 Gastrointestinal No vomiting 01/23/2012 Psychiatric anxiety 12/26 Psychiatric depression 0 01/23/2012 Musculoskeletal No stiffness 01/23/2012 Neurologic No dizziness 01/23/2012 Constitutional No recent illness 01/12/2012 Constitutional No anorexia 01/12/2012 Constitutional No night sweats 01/12/2012 Constitutional No chills 01/12/2012 Constitutional No diaphoresis 01/12/2012 Constitutional No fatigue 01/12/2012 Constitutional No fever 01/12/2012 Constitutional No insomnia 01/12/2012 Cardiovascular No chest pain/pressure 01/12/2012 Cardiovascular No hypertension 01/12/2012 Cardiovascular No fatigue 01/12/2012 Ears/Nose/Throat/Neck No dizziness 12/25/2011 Ears/Nose/Throat/Neck No headache 12/25/2011 Ears/Nose/Throat/Neck No sore throat 12/25/2011 Respiratory No productive sputum 12/25/2011 Respiratory No chest congestion 12/25/2011 Respiratory No dyspnea 0 12/25/2011 Psychiatric anxiety 11/27 Psychiatric depression 0 12/25/2011 Musculoskeletal No stiffness 12/25/2011 Musculoskeletal arthralgia(s) 12/25/2011 Cardiovascular dyspnea 0 12/25/2011 Cardiovascular No edema 12/25/2011 Constitutional No chills 12/25/2011 Constitutional No fever 12/25/2011 Ears/Nose/Throat/Neck No nasal discharge 12/25/2011 Ears/Nose/Throat/Neck No nasal allergies 12/25/2011 Ears/Nose/Throat/Neck No sinus congestion 12/25/2011 Cardiovascular No chest pain/pressure 12/25/2011 Respiratory No cough Gastrointestinal No abdominal pain 12/25/2011 Gastrointestinal No constipation 12/25/2011 Gastrointestinal No diarrhea 12/25/2011 Gastrointestinal No vomiting 12/25/2011 Gastrointestinal No nausea 12/25/2011 Constitutional No diaphoresis 12/25/2011 Constitutional No fatigue 12/25/2011 Eyes No eye discharge Eyes No eye erythema Eyes No vision change Cardiovascular palpitations 12/04/2011 Genitourinary/Nephrology No dysuria 12/04/2011 Neurologic No alteration of consciousness 12/04/2011 Constitutional recent illness 12/04/2011 Ears/Nose/Throat/Neck No dizziness 12/04/2011 Ears/Nose/Throat/Neck No headache 12/04/2011 Cardiovascular No chest pain/pressure 12/04/2011 Respiratory No chest congestion 12/04/2011 Respiratory No cough 04/2012 Gastrointestinal No constipation 12/04/2011 Gastrointestinal No nausea 12/04/2011 Gastrointestinal No vomiting 12/04/2011 Constitutional No chills 12/04/2011 Constitutional No diaphoresis 12/04/2011 Constitutional No fatigue 12/04/2011 Constitutional No fever 12/04/2011 Eyes No eye discharge Eyes No eye erythema 04/2012 Ears/Nose/Throat/Neck No nasal allergies 12/04/2011 Ears/Nose/Throat/Neck No nasal discharge 12/04/2011 Ears/Nose/Throat/Neck No sinus congestion 12/04/2011 Ears/Nose/Throat/Neck No sore throat 12/04/2011 Respiratory No productive sputum 12/04/2011 Respiratory No dyspnea 0 12/04/2011 Gastrointestinal No abdominal pain 12/04/2011 Gastrointestinal No diarrhea 12/04/2011 Psychiatric anxiety 0404/2012 Psychiatric depression 0 12/04/2011 Ears/Nose/Throat/Neck No headache 09/20/2011 Respiratory No dyspnea 0 09/20/2011 Constitutional No chills 09/20/2011 Constitutional No fever 09/20/2011 Ears/Nose/Throat/Neck No dizziness 09/20/2011 Cardiovascular No chest pain/pressure 09/20/2011 Gastrointestinal No nausea 09/20/2011 Gastrointestinal No vomiting 09/20/2011 Constitutional recent illness 09/20/2011 Constitutional No diaphoresis 09/20/2011 Constitutional No fatigue 09/20/2011 Eyes No eye discharge Eyes No eye erythema Ears/Nose/Throat/Neck No nasal allergies 09/20/2011 Ears/Nose/Throat/Neck No nasal discharge 09/20/2011 Ears/Nose/Throat/Neck No sinus congestion 09/20/2011 Ears/Nose/Throat/Neck No sore throat 09/20/2011 Respiratory No productive sputum 09/20/2011 Respiratory No chest congestion 09/20/2011 Respiratory No cough Gastrointestinal No abdominal pain 09/20/2011 Gastrointestinal No constipation 09/20/2011 Gastrointestinal No diarrhea 09/20/2011 Psychiatric anxiety 08/28 Psychiatric depression 0 09/20/2011 Constitutional recent illness 09/06/2011 Constitutional No chills 09/06/2011 Constitutional No diaphoresis 09/06/2011 Constitutional No fatigue 09/06/2011 Constitutional No fever 09/06/2011 Eyes No eye discharge Eyes No eye erythema 06/2012 Ears/Nose/Throat/Neck No dizziness 09/06/2011 Ears/Nose/Throat/Neck No nasal allergies 09/06/2011 Ears/Nose/Throat/Neck No nasal discharge 09/06/2011 Ears/Nose/Throat/Neck No sore throat 09/06/2011 Ears/Nose/Throat/Neck No sinus congestion 09/06/2011 Cardiovascular No chest pain/pressure 09/06/2011 Respiratory No productive sputum 09/06/2011 Respiratory No cough 06/2012 Respiratory No chest congestion 09/06/2011 Gastrointestinal No abdominal pain 09/06/2011 Gastrointestinal No nausea 09/06/2011 Gastrointestinal No vomiting 09/06/2011 Gastrointestinal No constipation 09/06/2011 Gastrointestinal No diarrhea 09/06/2011 Psychiatric anxiety 08/27 Psychiatric depression 0 09/06/2011 Constitutional No night sweats 08/30/2011 Constitutional No fatigue 08/30/2011 Constitutional No fever 08/30/2011 Dermatologic No rash 11/2011 Dermatologic No sores Psychiatric No anxiety 0 08/30/2011 Psychiatric No depression 08/30/2011 Gastrointestinal abdominal pain 08/30/2011 Gastrointestinal constipation 08/30/2011 Cardiovascular hypertension 08/30/2011 Cardiovascular fatigue 0 08/30/2011 Cardiovascular No chest pain/pressure 08/30/2011 Respiratory No cough 11/2011 Respiratory No chest congestion 08/30/2011 Respiratory No chest tightness 08/30/2011 Neurologic No dizziness 08/30/2011 Neurologic No headache 0 08/30/2011 Musculoskeletal No back pain 08/30/2011 Musculoskeletal arthralgia(s) 08/30/2011 Constitutional No recent illness 08/23/2011 Constitutional chills Constitutional fatigue 1 10/24/2010 Constitutional fever Eyes No eye discharge Eyes No eye erythema Ears/Nose/Throat/Neck No dizziness 08/23/2011 Ears/Nose/Throat/Neck headache 08/23/2011 Ears/Nose/Throat/Neck No hoarseness 08/23/2011 Ears/Nose/Throat/Neck nasal discharge 08/23/2011 Ears/Nose/Throat/Neck sinus congestion 08/23/2011 Ears/Nose/Throat/Neck No sore throat 08/23/2011 Cardiovascular No chest pain/pressure 08/23/2011 Respiratory No productive sputum 08/23/2011 Respiratory No cough Respiratory No dyspnea 1 10/24/2010 Gastrointestinal No abdominal pain 08/23/2011 Gastrointestinal No nausea 08/23/2011 Gastrointestinal No vomiting 08/23/2011 Gastrointestinal No constipation 08/23/2011 Gastrointestinal No diarrhea 08/23/2011 Genitourinary/Nephrology No dysuria 08/23/2011 Genitourinary/Nephrology urinary frequency 08/23/2011 Genitourinary/Nephrology urinary urgency 08/23/2011 Dermatologic No rash Constitutional No recent illness 08/09/2011 Constitutional No chills 08/09/2011 Constitutional No diaphoresis 08/09/2011 Constitutional No fatigue 08/09/2011 Constitutional No fever 08/09/2011 Constitutional No insomnia 08/09/2011 Eyes No eye discharge Eyes No eye erythema Ears/Nose/Throat/Neck No headache 08/09/2011 Cardiovascular No chest pain/pressure 08/09/2011 Genitourinary/Nephrology No breast c omplaint 08/09/2011 Genitourinary/Nephrology No dysuria 08/09/2011 Genitourinary/Nephrology No vaginal discharge 08/09/2011 Genitourinary/Nephrology No pelvic pain 08/09/2011 Dermatologic sores 08/09 Constitutional No chills 05/04/2011 Ears/Nose/Throat/Neck facial pain 05/04/2011 Ears/Nose/Throat/Neck No dizziness 05/04/2011 Cardiovascular No chest pain/pressure 05/04/2011 Cardiovascular No palpitations 05/04/2011 Respiratory No chest congestion 05/04/2011 Respiratory No chest tightness 05/04/2011 Respiratory No cough 03/2011 Genitourinary/Nephrology No urinary urgenc y 05/04/2011 Genitourinary/Nephrology No urinary frequency 05/04/2011 Genitourinary/Nephrology No urinary incontinence 05/04/2011 Musculoskeletal No back pain 05/04/2011 Dermatologic No rash 03/2011 Dermatologic No sores Neurologic No ataxia 03/2011 Neurologic No dizziness 05/04/2011 Neurologic No pain, back 05/04/2011 Psychiatric No anxiety 0 05/04/2011 Psychiatric No depression 05/04/2011 Musculoskeletal joint complaint 05/04/2011 Respiratory No chest tightness 04/19/2011 Respiratory cough 2010 Respiratory No daytime hypersomnolence 04/19/2011 Constitutional fever Constitutional chills Constitutional fatigue 0 04/19/2011 Constitutional No insomnia 04/19/2011 Eyes No eye discharge Eyes No eye pain 011 Eyes No vision change Ears/Nose/Throat/Neck No dental pain 04/19/2011 Ears/Nose/Throat/Neck No dizziness 04/19/2011 Ears/Nose/Throat/Neck No dysphagia 04/19/2011 Ears/Nose/Throat/Neck facial pain 04/19/2011 Ears/Nose/Throat/Neck headache 04/19/2011 Ears/Nose/Throat/Neck nasal allergies 04/19/2011 Ears/Nose/Throat/Neck nasal discharge 04/19/2011 Gastrointestinal No nausea 04/19/2011 Gastrointestinal No vomiting 04/19/2011 Genitourinary/Nephrology No dysuria 04/19/2011 Genitourinary/Nephrology No hematuria 04/19/2011 Genitourinary/Nephrology No urinary urgenc y 04/19/2011 Genitourinary/Nephrology No urinary frequency 04/19/2011 Dermatologic No rash Ears/Nose/Throat/Neck No neck pain 04/19/2011 Ears/Nose/Throat/Neck No otitis media 04/19/2011 Ears/Nose/Throat/Neck postnasal drip 04/19/2011 Ears/Nose/Throat/Neck sinus congestion 04/19/2011 Ears/Nose/Throat/Neck sore throat 04/19/2011 Ears/Nose/Throat/Neck No tinnitus 04/19/2011 Cardiovascular No chest pain/pressure 04/19/2011 Cardiovascular No paroxysmal nocturn al dyspnea 04/19/2011 Cardiovascular No syncope 04/19/2011 Cardiovascular No edema 04/19/2011 Respiratory asthma 04/19 Respiratory productive sputum 04/19/2011 Respiratory chest congestion 04/19/2011 Respiratory No dyspnea on exertion 04/19/2011 Respiratory No hemoptysis 04/19/2011 Respiratory wheezing Respiratory No pedal edema 04/19/2011 Gastrointestinal gastroesophageal reflux 04/19/2011 Gastrointestinal No diarrhea 04/19/2011 Gastrointestinal No constipation 04/19/2011 Ears/Nose/Throat/Neck hoarseness 04/19/2011 System Result Effective Dates Constitutional No recent illness 04/01/2019 Constitutional No anorexia 04/01/2019 Constitutional No night sweats 04/01/2019 Constitutional No chills 04/01/2019 Constitutional No diaphoresis 04/01/2019 Constitutional No fatigue 04/01/2019 Constitutional No fever 04/01/2019 Constitutional insomnia 04/01/2019 Constitutional No malaise 04/01/2019 Eyes No eye discharge Eyes No eye erythema 01/2019 Ears/Nose/Throat/Neck No dizziness 04/01/2019 Ears/Nose/Throat/Neck No headache 04/01/2019 Ears/Nose/Throat/Neck No nasal allergies 04/01/2019 Ears/Nose/Throat/Neck No nasal discharge 04/01/2019 Ears/Nose/Throat/Neck No sore throat 04/01/2019 Ears/Nose/Throat/Neck No sinus congestion 04/01/2019 Cardiovascular No chest pain/pressure 04/01/2019 Cardiovascular No dyspnea 04/01/2019 Cardiovascular edema 01/2019 Cardiovascular No exercise intolerance 04/01/2019 Cardiovascular No fatigue 04/01/2019 Cardiovascular hypertension 04/01/2019 Respiratory No productive sputum 04/01/2019 Respiratory No chest congestion 04/01/2019 Respiratory No cough 01/2019 Respiratory dyspnea on exertion 04/01/2019 Respiratory No dyspnea 0 04/01/2019 Gastrointestinal No abdominal pain 04/01/2019 Gastrointestinal No constipation 04/01/2019 Gastrointestinal No nausea 04/01/2019 Gastrointestinal No vomiting 04/01/2019 Genitourinary/Nephrology No dysuria 04/01/2019 Musculoskeletal No stiffness 04/01/2019 Musculoskeletal No swelling 04/01/2019 Musculoskeletal back pain 04/01/2019 Musculoskeletal joint complaint 04/01/2019 Musculoskeletal No muscle weakness 04/01/2019 Musculoskeletal No myalgias 04/01/2019 Dermatologic No rash 01/2019 Dermatologic No scar 01/2019 Neurologic No dizziness 04/01/2019 Neurologic No headache 0 04/01/2019 Neurologic No neck pain 04/01/2019 Neurologic No syncope Psychiatric anxiety 08/0 01/2019 Psychiatric depression 0 04/01/2019 Constitutional No recent illness 03/11/2019 Constitutional No chills 03/11/2019 Constitutional No diaphoresis 03/11/2019 Constitutional No fatigue 03/11/2019 Constitutional No fever 03/11/2019 Constitutional insomnia 03/11/2019 Constitutional No malaise 03/11/2019 Eyes No eye discharge Eyes No eye erythema Ears/Nose/Throat/Neck No dizziness 03/11/2019 Ears/Nose/Throat/Neck No headache 03/11/2019 Ears/Nose/Throat/Neck No nasal allergies 03/11/2019 Ears/Nose/Throat/Neck nasal discharge 03/11/2019 Ears/Nose/Throat/Neck No sore throat 03/11/2019 Ears/Nose/Throat/Neck sinus congestion 03/11/2019 Cardiovascular No chest pain/pressure 03/11/2019 Cardiovascular No dyspnea 03/11/2019 Cardiovascular edema Cardiovascular No exercise intolerance 03/11/2019 Cardiovascular No fatigue 03/11/2019 Cardiovascular hypertension 03/11/2019 Respiratory No productive sputum 03/11/2019 Respiratory chest congestion 03/11/2019 Respiratory cough 2018 Respiratory dyspnea on exertion 03/11/2019 Respiratory No dyspnea 0 03/11/2019 Gastrointestinal No abdominal pain 03/11/2019 Gastrointestinal No constipation 03/11/2019 Gastrointestinal No nausea 03/11/2019 Gastrointestinal No vomiting 03/11/2019 Genitourinary/Nephrology No dysuria 03/11/2019 Musculoskeletal No stiffness 03/11/2019 Musculoskeletal No swelling 03/11/2019 Musculoskeletal back pain 03/11/2019 Musculoskeletal joint complaint 03/11/2019 Musculoskeletal No muscle weakness 03/11/2019 Musculoskeletal No myalgias 03/11/2019 Dermatologic No rash Dermatologic No scar Neurologic No dizziness 03/11/2019 Neurologic No headache 0 03/11/2019 Neurologic No neck pain 03/11/2019 Neurologic No syncope Psychiatric anxiety 02/24 Psychiatric depression 0 03/11/2019 Respiratory chest tightness 03/11/2019 Constitutional No recent illness 09/03/2018 Constitutional No anorexia 09/03/2018 Constitutional No night sweats 09/03/2018 Constitutional No chills 09/03/2018 Constitutional No diaphoresis 09/03/2018 Constitutional No fatigue 09/03/2018 Constitutional No fever 09/03/2018 Constitutional insomnia 09/03/2018 Constitutional No malaise 09/03/2018 Eyes No eye discharge Eyes No eye erythema 03/2019 Ears/Nose/Throat/Neck No dizziness 09/03/2018 Ears/Nose/Throat/Neck No headache 09/03/2018 Ears/Nose/Throat/Neck No nasal allergies 09/03/2018 Ears/Nose/Throat/Neck No nasal discharge 09/03/2018 Ears/Nose/Throat/Neck No sore throat 09/03/2018 Ears/Nose/Throat/Neck No sinus congestion 09/03/2018 Cardiovascular No chest pain/pressure 09/03/2018 Cardiovascular No dyspnea 09/03/2018 Cardiovascular edema 03/2019 Cardiovascular No exercise intolerance 09/03/2018 Cardiovascular No fatigue 09/03/2018 Cardiovascular hypertension 09/03/2018 Respiratory No productive sputum 09/03/2018 Respiratory No chest congestion 09/03/2018 Respiratory No cough 03/2019 Respiratory dyspnea on exertion 09/03/2018 Respiratory No dyspnea 0 09/03/2018 Gastrointestinal No abdominal pain 09/03/2018 Gastrointestinal No constipation 09/03/2018 Gastrointestinal No nausea 09/03/2018 Gastrointestinal No vomiting 09/03/2018 Genitourinary/Nephrology No dysuria 09/03/2018 Musculoskeletal No stiffness 09/03/2018 Musculoskeletal No swelling 09/03/2018 Musculoskeletal joint complaint 09/03/2018 Musculoskeletal No muscle weakness 09/03/2018 Musculoskeletal No myalgias 09/03/2018 Dermatologic No rash 03/2019 Dermatologic No scar 03/2019 Neurologic No dizziness 09/03/2018 Neurologic No headache 0 09/03/2018 Neurologic No neck pain 09/03/2018 Neurologic No syncope Psychiatric anxiety 03/2019 Psychiatric depression 0 09/03/2018 Musculoskeletal back pain 09/03/2018 Constitutional No recent illness 05/29/2018 Constitutional No anorexia 05/29/2018 Constitutional No night sweats 05/29/2018 Constitutional No chills 05/29/2018 Constitutional No diaphoresis 05/29/2018 Constitutional No fatigue 05/29/2018 Constitutional No fever 05/29/2018 Constitutional insomnia 05/29/2018 Constitutional No malaise 05/29/2018 Eyes No eye discharge Eyes No eye erythema 10/2017 Ears/Nose/Throat/Neck No dizziness 05/29/2018 Ears/Nose/Throat/Neck No headache 05/29/2018 Ears/Nose/Throat/Neck No nasal allergies 05/29/2018 Ears/Nose/Throat/Neck No nasal discharge 05/29/2018 Ears/Nose/Throat/Neck No sore throat 05/29/2018 Ears/Nose/Throat/Neck No sinus congestion 05/29/2018 Cardiovascular No chest pain/pressure 05/29/2018 Cardiovascular No dyspnea 05/29/2018 Cardiovascular edema 10/2017 Cardiovascular exercise intolerance 05/29/2018 Cardiovascular fatigue 1 Cardiovascular hypertension 05/29/2018 Respiratory No productive sputum 05/29/2018 Respiratory No chest congestion 05/29/2018 Respiratory No cough 10/2017 Respiratory dyspnea on exertion 05/29/2018 Respiratory No dyspnea 1 Gastrointestinal No abdominal pain 05/29/2018 Gastrointestinal No constipation 05/29/2018 Gastrointestinal No nausea 05/29/2018 Gastrointestinal No vomiting 05/29/2018 Genitourinary/Nephrology No dysuria 05/29/2018 Musculoskeletal No stiffness 05/29/2018 Musculoskeletal No swelling 05/29/2018 Musculoskeletal joint complaint 05/29/2018 Musculoskeletal No muscle weakness 05/29/2018 Musculoskeletal No myalgias 05/29/2018 Dermatologic No rash 10/2017 Dermatologic No scar 10/2017 Neurologic No dizziness 05/29/2018 Neurologic No headache 1 Neurologic No neck pain 05/29/2018 Neurologic No syncope Psychiatric anxiety 10/2017 Psychiatric depression 1 Musculoskeletal back pain 05/29/2018 Gastrointestinal No diarrhea 05/29/2018 Constitutional No recent illness 04/25/2018 Constitutional No anorexia 04/25/2018 Constitutional No night sweats 04/25/2018 Constitutional No chills 04/25/2018 Constitutional No diaphoresis 04/25/2018 Constitutional No fatigue 04/25/2018 Constitutional No fever 04/25/2018 Constitutional No malaise 04/25/2018 Eyes No eye discharge Eyes No eye erythema Ears/Nose/Throat/Neck No dizziness 04/25/2018 Ears/Nose/Throat/Neck No headache 04/25/2018 Ears/Nose/Throat/Neck No nasal allergies 04/25/2018 Ears/Nose/Throat/Neck No nasal discharge 04/25/2018 Ears/Nose/Throat/Neck No sore throat 04/25/2018 Ears/Nose/Throat/Neck No sinus congestion 04/25/2018 Cardiovascular No chest pain/pressure 04/25/2018 Cardiovascular No dyspnea 04/25/2018 Cardiovascular edema Cardiovascular No exercise intolerance 04/25/2018 Cardiovascular No fatigue 04/25/2018 Cardiovascular hypertension 04/25/2018 Respiratory No productive sputum 04/25/2018 Respiratory No chest congestion 04/25/2018 Respiratory No cough Respiratory No dyspnea 0 04/25/2018 Gastrointestinal No abdominal pain 04/25/2018 Gastrointestinal No constipation 04/25/2018 Gastrointestinal No nausea 04/25/2018 Gastrointestinal No vomiting 04/25/2018 Genitourinary/Nephrology No dysuria 04/25/2018 Musculoskeletal No stiffness 04/25/2018 Musculoskeletal No swelling 04/25/2018 Musculoskeletal joint complaint 04/25/2018 Musculoskeletal No muscle weakness 04/25/2018 Musculoskeletal No myalgias 04/25/2018 Dermatologic No rash Dermatologic No scar Neurologic No dizziness 04/25/2018 Neurologic No headache 0 04/25/2018 Neurologic No neck pain 04/25/2018 Neurologic No syncope Psychiatric anxiety 03/29 Psychiatric depression 0 04/25/2018 Dermatologic sores 04/25 Constitutional No recent illness 02/06/2018 Constitutional No chills 02/06/2018 Constitutional No diaphoresis 02/06/2018 Constitutional No fever 02/06/2018 Eyes No eye erythema Ears/Nose/Throat/Neck No nasal discharge 02/06/2018 Ears/Nose/Throat/Neck nasal allergies 02/06/2018 Ears/Nose/Throat/Neck hearing loss 02/06/2018 Ears/Nose/Throat/Neck cerumen 02/06/2018 Cardiovascular No chest pain/pressure 02/06/2018 Respiratory No cough Neurologic No alteration of consciousness 02/06/2018 Neurologic No mental status change 02/06/2018 Constitutional No recent illness 01/23/2018 Constitutional No anorexia 01/23/2018 Constitutional No night sweats 01/23/2018 Constitutional No chills 01/23/2018 Constitutional No diaphoresis 01/23/2018 Constitutional No fatigue 01/23/2018 Constitutional No fever 01/23/2018 Constitutional insomnia 01/23/2018 Constitutional No malaise 01/23/2018 Eyes No eye discharge Eyes No eye erythema Ears/Nose/Throat/Neck No dizziness 01/23/2018 Ears/Nose/Throat/Neck No headache 01/23/2018 Ears/Nose/Throat/Neck No nasal allergies 01/23/2018 Ears/Nose/Throat/Neck No nasal discharge 01/23/2018 Ears/Nose/Throat/Neck No sore throat 01/23/2018 Ears/Nose/Throat/Neck No sinus congestion 01/23/2018 Cardiovascular No chest pain/pressure 01/23/2018 Cardiovascular No dyspnea 01/23/2018 Cardiovascular edema Cardiovascular No exercise intolerance 01/23/2018 Cardiovascular No fatigue 01/23/2018 Cardiovascular hypertension 01/23/2018 Respiratory No productive sputum 01/23/2018 Respiratory No chest congestion 01/23/2018 Respiratory No cough Respiratory dyspnea on exertion 01/23/2018 Respiratory No dyspnea 0 01/23/2018 Gastrointestinal No abdominal pain 01/23/2018 Gastrointestinal No constipation 01/23/2018 Gastrointestinal diarrhea 01/23/2018 Gastrointestinal No nausea 01/23/2018 Gastrointestinal No vomiting 01/23/2018 Genitourinary/Nephrology No dysuria 01/23/2018 Musculoskeletal No stiffness 01/23/2018 Musculoskeletal No swelling 01/23/2018 Musculoskeletal joint complaint 01/23/2018 Musculoskeletal No muscle weakness 01/23/2018 Musculoskeletal No myalgias 01/23/2018 Dermatologic No rash Dermatologic No scar Neurologic No dizziness 01/23/2018 Neurologic No headache 0 01/23/2018 Neurologic No neck pain 01/23/2018 Neurologic No syncope Psychiatric anxiety 12/27 Psychiatric depression 0 01/23/2018 Constitutional recent illness 09/26/2017 Constitutional No fatigue 09/26/2017 Psychiatric No anxiety 0 09/26/2017 Psychiatric No depression 09/26/2017 Respiratory No cough Cardiovascular fatigue 0 09/26/2017 Musculoskeletal stiffness 09/26/2017 Musculoskeletal arthralgia(s) 09/26/2017 Constitutional recent illness 09/12/2017 Constitutional No anorexia 09/12/2017 Constitutional No night sweats 09/12/2017 Constitutional No chills 09/12/2017 Constitutional No diaphoresis 09/12/2017 Constitutional No fatigue 09/12/2017 Constitutional No fever 09/12/2017 Constitutional insomnia 09/12/2017 Constitutional No malaise 09/12/2017 Eyes No eye discharge Eyes No eye erythema Ears/Nose/Throat/Neck No dizziness 09/12/2017 Ears/Nose/Throat/Neck headache 09/12/2017 Ears/Nose/Throat/Neck No nasal allergies 09/12/2017 Ears/Nose/Throat/Neck No nasal discharge 09/12/2017 Ears/Nose/Throat/Neck sore throat 09/12/2017 Ears/Nose/Throat/Neck sinus congestion 09/12/2017 Cardiovascular No chest pain/pressure 09/12/2017 Cardiovascular No dyspnea 09/12/2017 Cardiovascular edema Cardiovascular No exercise intolerance 09/12/2017 Cardiovascular No fatigue 09/12/2017 Cardiovascular hypertension 09/12/2017 Respiratory No productive sputum 09/12/2017 Respiratory No chest congestion 09/12/2017 Respiratory No cough Respiratory dyspnea on exertion 09/12/2017 Respiratory No dyspnea 0 09/12/2017 Gastrointestinal No abdominal pain 09/12/2017 Gastrointestinal No constipation 09/12/2017 Gastrointestinal No diarrhea 09/12/2017 Gastrointestinal No nausea 09/12/2017 Gastrointestinal No vomiting 09/12/2017 Genitourinary/Nephrology No dysuria 09/12/2017 Musculoskeletal stiffness 09/12/2017 Musculoskeletal No swelling 09/12/2017 Musculoskeletal joint complaint 09/12/2017 Musculoskeletal No muscle weakness 09/12/2017 Musculoskeletal No myalgias 09/12/2017 Dermatologic No rash Dermatologic No scar Neurologic No dizziness 09/12/2017 Neurologic No headache 0 09/12/2017 Neurologic No neck pain 09/12/2017 Neurologic No syncope Psychiatric anxiety 08/27 Psychiatric depression 0 09/12/2017 Ears/Nose/Throat/Neck No otalgia 09/12/2017 Neurologic No alteration of consciousness 09/12/2017 Constitutional recent illness 08/31/2017 Constitutional fatigue 0 08/31/2017 Constitutional No fever 08/31/2017 Eyes No eye discharge Eyes No eye erythema 12/2017 Ears/Nose/Throat/Neck nasal discharge 08/31/2017 Ears/Nose/Throat/Neck sinus congestion 08/31/2017 Ears/Nose/Throat/Neck sore throat 08/31/2017 Cardiovascular No chest pain/pressure 08/31/2017 Cardiovascular No dyspnea 08/31/2017 Respiratory No productive sputum 08/31/2017 Respiratory chest congestion 08/31/2017 Respiratory cough 2017 Gastrointestinal No diarrhea 08/31/2017 Gastrointestinal No nausea 08/31/2017 Gastrointestinal No vomiting 08/31/2017 Musculoskeletal No joint complaint 08/31/2017 Dermatologic No rash 12/2017 Neurologic No alteration of consciousness 08/31/2017 Constitutional No chills 08/31/2017 Constitutional No diaphoresis 08/31/2017 Ears/Nose/Throat/Neck nasal allergies 08/31/2017 Respiratory No dyspnea 0 08/31/2017 Constitutional recent illness 08/09/2017 Constitutional No anorexia 08/09/2017 Constitutional No night sweats 08/09/2017 Constitutional chills Constitutional No diaphoresis 08/09/2017 Constitutional fatigue 1 10/10/2016 Constitutional No fever 08/09/2017 Constitutional No insomnia 08/09/2017 Constitutional No weight loss 08/09/2017 Constitutional No weight gain 08/09/2017 Constitutional No malaise 08/09/2017 Eyes No eye discharge Eyes No eye erythema Ears/Nose/Throat/Neck headache 08/09/2017 Ears/Nose/Throat/Neck nasal discharge 08/09/2017 Ears/Nose/Throat/Neck No otalgia 08/09/2017 Ears/Nose/Throat/Neck sinus congestion 08/09/2017 Ears/Nose/Throat/Neck sore throat 08/09/2017 Cardiovascular No chest pain/pressure 08/09/2017 Cardiovascular No dyspnea 08/09/2017 Respiratory No productive sputum 08/09/2017 Respiratory chest congestion 08/09/2017 Respiratory cough 2016 Gastrointestinal No vomiting 08/09/2017 Gastrointestinal No nausea 08/09/2017 Gastrointestinal No diarrhea 08/09/2017 Genitourinary/Nephrology No dysuria 08/09/2017 Musculoskeletal No joint complaint 08/09/2017 Dermatologic No rash Neurologic No alteration of consciousness 08/09/2017 Constitutional No recent illness 05/07/2017 Constitutional No anorexia 05/07/2017 Constitutional No night sweats 05/07/2017 Constitutional No chills 05/07/2017 Constitutional No diaphoresis 05/07/2017 Constitutional No fatigue 05/07/2017 Constitutional No fever 05/07/2017 Constitutional insomnia 05/07/2017 Constitutional No malaise 05/07/2017 Eyes No eye discharge Eyes No eye erythema 06/2017 Ears/Nose/Throat/Neck No dizziness 05/07/2017 Ears/Nose/Throat/Neck No headache 05/07/2017 Ears/Nose/Throat/Neck No nasal allergies 05/07/2017 Ears/Nose/Throat/Neck No nasal discharge 05/07/2017 Ears/Nose/Throat/Neck No sore throat 05/07/2017 Ears/Nose/Throat/Neck No sinus congestion 05/07/2017 Cardiovascular No chest pain/pressure 05/07/2017 Cardiovascular No dyspnea 05/07/2017 Cardiovascular edema 06/2017 Cardiovascular No exercise intolerance 05/07/2017 Cardiovascular No fatigue 05/07/2017 Cardiovascular hypertension 05/07/2017 Respiratory No productive sputum 05/07/2017 Respiratory No chest congestion 05/07/2017 Respiratory No cough 06/2017 Respiratory dyspnea on exertion 05/07/2017 Respiratory No dyspnea 0 05/07/2017 Gastrointestinal No abdominal pain 05/07/2017 Gastrointestinal No constipation 05/07/2017 Gastrointestinal diarrhea 05/07/2017 Gastrointestinal No nausea 05/07/2017 Gastrointestinal No vomiting 05/07/2017 Genitourinary/Nephrology No dysuria 05/07/2017 Musculoskeletal No stiffness 05/07/2017 Musculoskeletal No swelling 05/07/2017 Musculoskeletal joint complaint 05/07/2017 Musculoskeletal No muscle weakness 05/07/2017 Musculoskeletal No myalgias 05/07/2017 Dermatologic No rash 06/2017 Dermatologic No scar 06/2017 Neurologic No dizziness 05/07/2017 Neurologic No headache 0 05/07/2017 Neurologic No neck pain 05/07/2017 Neurologic No syncope Psychiatric anxiety 04/27 Psychiatric depression 0 05/07/2017 Constitutional No recent illness 04/12/2017 Constitutional No chills 04/12/2017 Constitutional No diaphoresis 04/12/2017 Constitutional No fever 04/12/2017 Eyes No eye erythema Ears/Nose/Throat/Neck No nasal discharge 04/12/2017 Cardiovascular No chest pain/pressure 04/12/2017 Respiratory No cough Neurologic No alteration of consciousness 04/12/2017 Neurologic No mental status change 04/12/2017 Constitutional recent illness 02/05/2017 Constitutional No anorexia 02/05/2017 Constitutional No night sweats 02/05/2017 Constitutional No chills 02/05/2017 Constitutional diaphoresis 02/05/2017 Constitutional fatigue 0 02/05/2017 Constitutional No fever 02/05/2017 Constitutional No insomnia 02/05/2017 Constitutional No malaise 02/05/2017 Constitutional No weight loss 02/05/2017 Constitutional No weight gain 02/05/2017 Eyes No eye discharge Eyes No eye erythema 07/2017 Ears/Nose/Throat/Neck No dizziness 02/05/2017 Ears/Nose/Throat/Neck No headache 02/05/2017 Cardiovascular No chest pain/pressure 02/05/2017 Cardiovascular No dyspnea 02/05/2017 Cardiovascular edema 07/2017 Respiratory No productive sputum 02/05/2017 Respiratory No chest congestion 02/05/2017 Respiratory cough 2016 Gastrointestinal No abdominal pain 02/05/2017 Gastrointestinal constipation 02/05/2017 Gastrointestinal No diarrhea 02/05/2017 Gastrointestinal gastroesophageal reflux 02/05/2017 Genitourinary/Nephrology dysuria 02/05/2017 Musculoskeletal joint complaint 02/05/2017 Dermatologic No rash 07/2017 Neurologic No alteration of consciousness 02/05/2017 Psychiatric anxiety 01/25 Constitutional recent illness 02/02/2017 Constitutional No anorexia 02/02/2017 Constitutional No night sweats 02/02/2017 Constitutional No chills 02/02/2017 Constitutional diaphoresis 02/02/2017 Constitutional fatigue 0 02/02/2017 Constitutional No fever 02/02/2017 Constitutional No insomnia 02/02/2017 Constitutional No malaise 02/02/2017 Constitutional No weight loss 02/02/2017 Constitutional No weight gain 02/02/2017 Eyes No eye discharge Eyes No eye erythema 04/2017 Ears/Nose/Throat/Neck No dizziness 02/02/2017 Ears/Nose/Throat/Neck No headache 02/02/2017 Cardiovascular No chest pain/pressure 02/02/2017 Cardiovascular No dyspnea 02/02/2017 Cardiovascular edema 04/2017 Respiratory No productive sputum 02/02/2017 Respiratory No chest congestion 02/02/2017 Respiratory cough 2016 Gastrointestinal No abdominal pain 02/02/2017 Gastrointestinal constipation 02/02/2017 Gastrointestinal No diarrhea 02/02/2017 Genitourinary/Nephrology dysuria 02/02/2017 Musculoskeletal joint complaint 02/02/2017 Gastrointestinal gastroesophageal reflux 02/02/2017 Dermatologic No rash 04/2017 Neurologic No alteration of consciousness 02/02/2017 Psychiatric anxiety 06/0 04/2017 Constitutional recent illness 01/15/2017 Constitutional No anorexia 01/15/2017 Constitutional No chills 01/15/2017 Constitutional No night sweats 01/15/2017 Constitutional No fatigue 01/15/2017 Constitutional No diaphoresis 01/15/2017 Constitutional No fever 01/15/2017 Constitutional No insomnia 01/15/2017 Constitutional No weight gain 01/15/2017 Constitutional No weight loss 01/15/2017 Constitutional No malaise 01/15/2017 Eyes No eye discharge Eyes No eye erythema Ears/Nose/Throat/Neck nasal allergies 01/15/2017 Ears/Nose/Throat/Neck nasal discharge 01/15/2017 Ears/Nose/Throat/Neck sinus congestion 01/15/2017 Ears/Nose/Throat/Neck No sore throat 01/15/2017 Cardiovascular No chest pain/pressure 01/15/2017 Cardiovascular No edema 01/15/2017 Respiratory productive sputum 01/15/2017 Respiratory chest congestion 01/15/2017 Respiratory cough 2016 Gastrointestinal No abdominal pain 01/15/2017 Musculoskeletal joint complaint 01/15/2017 Dermatologic No rash Neurologic No alteration of consciousness 01/15/2017 Constitutional No recent illness 01/04/2017 Constitutional No chills 01/04/2017 Constitutional No diaphoresis 01/04/2017 Constitutional No fatigue 01/04/2017 Constitutional No fever 01/04/2017 Constitutional insomnia 01/04/2017 Constitutional No malaise 01/04/2017 Eyes No eye discharge Eyes No eye erythema 06/2017 Ears/Nose/Throat/Neck No dizziness 01/04/2017 Ears/Nose/Throat/Neck No headache 01/04/2017 Ears/Nose/Throat/Neck No nasal allergies 01/04/2017 Ears/Nose/Throat/Neck No nasal discharge 01/04/2017 Ears/Nose/Throat/Neck No sore throat 01/04/2017 Ears/Nose/Throat/Neck No sinus congestion 01/04/2017 Cardiovascular No chest pain/pressure 01/04/2017 Cardiovascular No dyspnea 01/04/2017 Cardiovascular edema 06/2017 Cardiovascular No exercise intolerance 01/04/2017 Cardiovascular No fatigue 01/04/2017 Cardiovascular hypertension 01/04/2017 Respiratory No productive sputum 01/04/2017 Respiratory No chest congestion 01/04/2017 Respiratory No cough 06/2017 Respiratory dyspnea on exertion 01/04/2017 Respiratory No dyspnea 0 01/04/2017 Gastrointestinal No abdominal pain 01/04/2017 Gastrointestinal No constipation 01/04/2017 Gastrointestinal No nausea 01/04/2017 Gastrointestinal No vomiting 01/04/2017 Genitourinary/Nephrology No dysuria 01/04/2017 Musculoskeletal No stiffness 01/04/2017 Musculoskeletal No swelling 01/04/2017 Musculoskeletal joint complaint 01/04/2017 Musculoskeletal No muscle weakness 01/04/2017 Musculoskeletal No myalgias 01/04/2017 Dermatologic No rash 06/2017 Dermatologic No scar 06/2017 Neurologic No dizziness 01/04/2017 Neurologic No headache 0 01/04/2017 Neurologic No neck pain 01/04/2017 Neurologic No syncope Psychiatric anxiety 12/25 Psychiatric depression 0 01/04/2017 Constitutional No recent illness 09/07/2016 Constitutional No chills 09/07/2016 Constitutional No diaphoresis 09/07/2016 Constitutional No fatigue 09/07/2016 Constitutional No fever 09/07/2016 Constitutional insomnia 09/07/2016 Constitutional No malaise 09/07/2016 Eyes No eye discharge Eyes No eye erythema 07/2017 Ears/Nose/Throat/Neck No dizziness 09/07/2016 Ears/Nose/Throat/Neck No headache 09/07/2016 Ears/Nose/Throat/Neck No nasal allergies 09/07/2016 Ears/Nose/Throat/Neck No nasal discharge 09/07/2016 Ears/Nose/Throat/Neck No sore throat 09/07/2016 Ears/Nose/Throat/Neck No sinus congestion 09/07/2016 Cardiovascular No chest pain/pressure 09/07/2016 Cardiovascular No dyspnea 09/07/2016 Cardiovascular edema 07/2017 Cardiovascular No exercise intolerance 09/07/2016 Cardiovascular No fatigue 09/07/2016 Cardiovascular hypertension 09/07/2016 Respiratory No productive sputum 09/07/2016 Respiratory No chest congestion 09/07/2016 Respiratory No cough 07/2017 Respiratory dyspnea on exertion 09/07/2016 Respiratory No dyspnea 0 09/07/2016 Gastrointestinal No abdominal pain 09/07/2016 Gastrointestinal No constipation 09/07/2016 Gastrointestinal No nausea 09/07/2016 Gastrointestinal No vomiting 09/07/2016 Genitourinary/Nephrology No dysuria 09/07/2016 Musculoskeletal No stiffness 09/07/2016 Musculoskeletal No swelling 09/07/2016 Musculoskeletal joint complaint 09/07/2016 Musculoskeletal No muscle weakness 09/07/2016 Musculoskeletal No myalgias 09/07/2016 Dermatologic No rash 07/2017 Dermatologic No scar 07/2017 Neurologic No dizziness 09/07/2016 Neurologic No headache 0 09/07/2016 Neurologic No neck pain 09/07/2016 Neurologic No syncope Psychiatric anxiety 08/27 Psychiatric depression 0 09/07/2016 Constitutional No recent illness 07/06/2016 Constitutional No chills 07/06/2016 Constitutional No diaphoresis 07/06/2016 Constitutional No fatigue 07/06/2016 Constitutional No fever 07/06/2016 Constitutional insomnia 07/06/2016 Constitutional No malaise 07/06/2016 Eyes No eye discharge Eyes No eye erythema 05/2016 Ears/Nose/Throat/Neck No dizziness 07/06/2016 Ears/Nose/Throat/Neck No headache 07/06/2016 Ears/Nose/Throat/Neck No nasal allergies 07/06/2016 Ears/Nose/Throat/Neck No nasal discharge 07/06/2016 Ears/Nose/Throat/Neck No sore throat 07/06/2016 Ears/Nose/Throat/Neck No sinus congestion 07/06/2016 Cardiovascular No chest pain/pressure 07/06/2016 Cardiovascular No dyspnea 07/06/2016 Cardiovascular edema 05/2016 Cardiovascular No exercise intolerance 07/06/2016 Cardiovascular No fatigue 07/06/2016 Cardiovascular hypertension 07/06/2016 Respiratory No productive sputum 07/06/2016 Respiratory No chest congestion 07/06/2016 Respiratory No cough 05/2016 Respiratory dyspnea on exertion 07/06/2016 Respiratory No dyspnea 1 09/05/2015 Gastrointestinal No abdominal pain 07/06/2016 Gastrointestinal No constipation 07/06/2016 Gastrointestinal diarrhea 07/06/2016 Gastrointestinal No nausea 07/06/2016 Gastrointestinal No vomiting 07/06/2016 Genitourinary/Nephrology No dysuria 07/06/2016 Musculoskeletal No stiffness 07/06/2016 Musculoskeletal No swelling 07/06/2016 Musculoskeletal joint complaint 07/06/2016 Musculoskeletal No muscle weakness 07/06/2016 Musculoskeletal No myalgias 07/06/2016 Dermatologic No rash 05/2016 Dermatologic No scar 05/2016 Neurologic No dizziness 07/06/2016 Neurologic No headache 1 09/05/2015 Neurologic No neck pain 07/06/2016 Neurologic No syncope Psychiatric anxiety 06/27 Psychiatric depression 1 09/05/2015 Constitutional No recent illness 06/08/2016 Constitutional No chills 06/08/2016 Constitutional No diaphoresis 06/08/2016 Constitutional No fatigue 06/08/2016 Constitutional No fever 06/08/2016 Constitutional insomnia 06/08/2016 Constitutional No malaise 06/08/2016 Eyes No eye discharge Eyes No eye erythema Ears/Nose/Throat/Neck No dizziness 06/08/2016 Ears/Nose/Throat/Neck No headache 06/08/2016 Ears/Nose/Throat/Neck No nasal allergies 06/08/2016 Ears/Nose/Throat/Neck No nasal discharge 06/08/2016 Ears/Nose/Throat/Neck No sore throat 06/08/2016 Ears/Nose/Throat/Neck No sinus congestion 06/08/2016 Cardiovascular No chest pain/pressure 06/08/2016 Cardiovascular No dyspnea 06/08/2016 Cardiovascular edema Cardiovascular No exercise intolerance 06/08/2016 Cardiovascular No fatigue 06/08/2016 Cardiovascular hypertension 06/08/2016 Respiratory No productive sputum 06/08/2016 Respiratory No chest congestion 06/08/2016 Respiratory No cough Respiratory dyspnea on exertion 06/08/2016 Respiratory No dyspnea 1 Gastrointestinal No abdominal pain 06/08/2016 Gastrointestinal No constipation 06/08/2016 Gastrointestinal diarrhea 06/08/2016 Gastrointestinal No nausea 06/08/2016 Gastrointestinal No vomiting 06/08/2016 Genitourinary/Nephrology No dysuria 06/08/2016 Musculoskeletal No stiffness 06/08/2016 Musculoskeletal No swelling 06/08/2016 Musculoskeletal joint complaint 06/08/2016 Musculoskeletal No muscle weakness 06/08/2016 Musculoskeletal No myalgias 06/08/2016 Dermatologic No rash Dermatologic No scar Neurologic No dizziness 06/08/2016 Neurologic No headache 1 Neurologic No neck pain 06/08/2016 Neurologic No syncope Psychiatric anxiety 05/27 Psychiatric depression 1 Constitutional No recent illness 04/06/2016 Constitutional No anorexia 04/06/2016 Constitutional No night sweats 04/06/2016 Constitutional No chills 04/06/2016 Constitutional No diaphoresis 04/06/2016 Constitutional No fatigue 04/06/2016 Constitutional No fever 04/06/2016 Constitutional insomnia 04/06/2016 Constitutional No malaise 04/06/2016 Constitutional No weight loss 04/06/2016 Constitutional No weight gain 04/06/2016 Eyes No eye discharge Eyes No eye erythema 06/2016 Ears/Nose/Throat/Neck No dizziness 04/06/2016 Ears/Nose/Throat/Neck No headache 04/06/2016 Ears/Nose/Throat/Neck No nasal allergies 04/06/2016 Ears/Nose/Throat/Neck No nasal discharge 04/06/2016 Ears/Nose/Throat/Neck No sinus congestion 04/06/2016 Ears/Nose/Throat/Neck No sore throat 04/06/2016 Cardiovascular No chest pain/pressure 04/06/2016 Cardiovascular No dyspnea 04/06/2016 Cardiovascular edema 06/2016 Cardiovascular No exercise intolerance 04/06/2016 Cardiovascular No fatigue 04/06/2016 Cardiovascular hypertension 04/06/2016 Respiratory No productive sputum 04/06/2016 Respiratory No chest congestion 04/06/2016 Respiratory No cough 06/2016 Respiratory dyspnea on exertion 04/06/2016 Respiratory No dyspnea 0 04/06/2016 Gastrointestinal No abdominal pain 04/06/2016 Gastrointestinal No constipation 04/06/2016 Gastrointestinal diarrhea 04/06/2016 Gastrointestinal No nausea 04/06/2016 Gastrointestinal No vomiting 04/06/2016 Genitourinary/Nephrology No dysuria 04/06/2016 Musculoskeletal No stiffness 04/06/2016 Musculoskeletal No swelling 04/06/2016 Musculoskeletal joint complaint 04/06/2016 Musculoskeletal No muscle weakness 04/06/2016 Musculoskeletal No myalgias 04/06/2016 Dermatologic No rash 06/2016 Dermatologic No scar 06/2016 Neurologic No dizziness 04/06/2016 Neurologic No headache 0 04/06/2016 Neurologic No neck pain 04/06/2016 Neurologic No syncope Psychiatric anxiety 03/27 Psychiatric depression 0 04/06/2016 Constitutional No chills 03/09/2016 Constitutional No diaphoresis 03/09/2016 Constitutional No fatigue 03/09/2016 Constitutional No fever 03/09/2016 Eyes No eye discharge Eyes No eye erythema Ears/Nose/Throat/Neck No dizziness 03/09/2016 Ears/Nose/Throat/Neck No headache 03/09/2016 Ears/Nose/Throat/Neck No nasal allergies 03/09/2016 Ears/Nose/Throat/Neck No nasal discharge 03/09/2016 Ears/Nose/Throat/Neck No sore throat 03/09/2016 Ears/Nose/Throat/Neck No sinus congestion 03/09/2016 Cardiovascular No chest pain/pressure 03/09/2016 Cardiovascular No dyspnea 03/09/2016 Cardiovascular edema Cardiovascular No exercise intolerance 03/09/2016 Cardiovascular No fatigue 03/09/2016 Cardiovascular hypertension 03/09/2016 Respiratory No productive sputum 03/09/2016 Respiratory No chest congestion 03/09/2016 Respiratory No cough Respiratory No dyspnea 0 03/09/2016 Gastrointestinal No abdominal pain 03/09/2016 Gastrointestinal No constipation 03/09/2016 Gastrointestinal diarrhea 03/09/2016 Gastrointestinal No nausea 03/09/2016 Gastrointestinal No vomiting 03/09/2016 Musculoskeletal No stiffness 03/09/2016 Musculoskeletal No swelling 03/09/2016 Musculoskeletal No muscle weakness 03/09/2016 Musculoskeletal No myalgias 03/09/2016 Dermatologic No rash Dermatologic No scar Neurologic No dizziness 03/09/2016 Neurologic No headache 0 03/09/2016 Neurologic No neck pain 03/09/2016 Neurologic No syncope Psychiatric anxiety 02/24 Psychiatric depression 0 03/09/2016 Constitutional No recent illness 03/09/2016 Constitutional No anorexia 03/09/2016 Constitutional No night sweats 03/09/2016 Constitutional insomnia 03/09/2016 Constitutional No malaise 03/09/2016 Constitutional No weight loss 03/09/2016 Constitutional No weight gain 03/09/2016 Genitourinary/Nephrology No dysuria 03/09/2016 Respiratory dyspnea on exertion 03/09/2016 Musculoskeletal joint complaint 03/09/2016 Constitutional No chills 01/18/2016 Constitutional No diaphoresis 01/18/2016 Constitutional No fatigue 01/18/2016 Constitutional No fever 01/18/2016 Eyes No eye discharge Eyes No eye erythema Ears/Nose/Throat/Neck No dizziness 01/18/2016 Ears/Nose/Throat/Neck No headache 01/18/2016 Ears/Nose/Throat/Neck No nasal allergies 01/18/2016 Ears/Nose/Throat/Neck No nasal discharge 01/18/2016 Ears/Nose/Throat/Neck No sore throat 01/18/2016 Ears/Nose/Throat/Neck No sinus congestion 01/18/2016 Cardiovascular No chest pain/pressure 01/18/2016 Cardiovascular No dyspnea 01/18/2016 Cardiovascular edema Cardiovascular No exercise intolerance 01/18/2016 Cardiovascular No fatigue 01/18/2016 Cardiovascular hypertension 01/18/2016 Respiratory No productive sputum 01/18/2016 Respiratory No chest congestion 01/18/2016 Respiratory No cough Respiratory No dyspnea 0 01/18/2016 Gastrointestinal No abdominal pain 01/18/2016 Gastrointestinal No constipation 01/18/2016 Gastrointestinal No diarrhea 01/18/2016 Gastrointestinal No nausea 01/18/2016 Gastrointestinal No vomiting 01/18/2016 Musculoskeletal No stiffness 01/18/2016 Musculoskeletal No swelling 01/18/2016 Musculoskeletal No muscle weakness 01/18/2016 Musculoskeletal No myalgias 01/18/2016 Dermatologic No rash Dermatologic No scar Neurologic No dizziness 01/18/2016 Neurologic No headache 0 01/18/2016 Neurologic No neck pain 01/18/2016 Neurologic No syncope Psychiatric anxiety 12/26 Psychiatric depression 0 01/18/2016 Constitutional No recent illness 09/09/2015 Constitutional No anorexia 09/09/2015 Constitutional No night sweats 09/09/2015 Constitutional No chills 09/09/2015 Constitutional No diaphoresis 09/09/2015 Constitutional No fatigue 09/09/2015 Constitutional No fever 09/09/2015 Constitutional No insomnia 09/09/2015 Constitutional No malaise 09/09/2015 Constitutional No weight loss 09/09/2015 Constitutional No weight gain 09/09/2015 Constitutional No obesity 09/09/2015 Respiratory dyspnea 08/27 Respiratory dyspnea on exertion 09/09/2015 Respiratory cough 2015 Respiratory No cigarette smoking 09/09/2015 Respiratory No chest tightness 09/09/2015 Respiratory No chest congestion 09/09/2015 Respiratory No snoring 0 09/09/2015 Cardiovascular No chest pain/pressure 09/09/2015 Ears/Nose/Throat/Neck No oral pain 09/09/2015 Ears/Nose/Throat/Neck No otitis media 09/09/2015 Ears/Nose/Throat/Neck No otalgia 09/09/2015 Ears/Nose/Throat/Neck nasal allergies 09/09/2015 Ears/Nose/Throat/Neck nasal discharge 09/09/2015 Ears/Nose/Throat/Neck No sore throat 09/09/2015 Ears/Nose/Throat/Neck No postnasal drip 09/09/2015 Gastrointestinal abdominal pain 09/09/2015 Gastrointestinal constipation 09/09/2015 Gastrointestinal diarrhea 09/09/2015 Genitourinary/Nephrology No dysuria 09/09/2015 Genitourinary/Nephrology No urinary incontinence 09/09/2015 Genitourinary/Nephrology No urinary frequency 09/09/2015 Genitourinary/Nephrology No urinary urgenc y 09/09/2015 Musculoskeletal joint complaint 09/09/2015 Musculoskeletal back pain 09/09/2015 Musculoskeletal myalgias 09/09/2015 Dermatologic No rash Dermatologic No sores Psychiatric anxiety 08/27 Psychiatric No depression 09/09/2015 Ears/Nose/Throat/Neck No dizziness 09/09/2015 Ears/Nose/Throat/Neck No headache 09/09/2015 Constitutional No insomnia 12/25/2014 Cardiovascular No chest pain/pressure 12/25/2014 Cardiovascular edema 08/2014 Respiratory dyspnea on exertion 12/25/2014 Respiratory No cough 08/2014 Respiratory No chest tightness 12/25/2014 Gastrointestinal No diarrhea 12/25/2014 Gastrointestinal No abdominal pain 12/25/2014 Genitourinary/Nephrology No dysuria 12/25/2014 Constitutional No recent illness 12/25/2014 Constitutional No chills 12/25/2014 Constitutional No diaphoresis 12/25/2014 Constitutional No fatigue 12/25/2014 Constitutional No fever 12/25/2014 Eyes No eye discharge Eyes No eye erythema 08/2014 Ears/Nose/Throat/Neck No dizziness 12/25/2014 Ears/Nose/Throat/Neck No headache 12/25/2014 Ears/Nose/Throat/Neck No nasal allergies 12/25/2014 Ears/Nose/Throat/Neck No nasal discharge 12/25/2014 Ears/Nose/Throat/Neck No sore throat 12/25/2014 Ears/Nose/Throat/Neck No sinus congestion 12/25/2014 Respiratory No productive sputum 12/25/2014 Respiratory No chest congestion 12/25/2014 Respiratory No dyspnea 0 12/25/2014 Gastrointestinal No constipation 12/25/2014 Gastrointestinal No nausea 12/25/2014 Gastrointestinal No vomiting 12/25/2014 Musculoskeletal No stiffness 12/25/2014 Musculoskeletal No swelling 12/25/2014 Musculoskeletal No muscle weakness 12/25/2014 Musculoskeletal No myalgias 12/25/2014 Psychiatric anxiety 0508/2014 Psychiatric depression 0 12/25/2014 Constitutional No chills 10/13/2014 Constitutional No diaphoresis 10/13/2014 Constitutional No fatigue 10/13/2014 Constitutional No fever 10/13/2014 Eyes No eye discharge Eyes No eye erythema Ears/Nose/Throat/Neck No dizziness 10/13/2014 Ears/Nose/Throat/Neck No headache 10/13/2014 Ears/Nose/Throat/Neck No nasal allergies 10/13/2014 Ears/Nose/Throat/Neck No nasal discharge 10/13/2014 Ears/Nose/Throat/Neck No sore throat 10/13/2014 Ears/Nose/Throat/Neck No sinus congestion 10/13/2014 Respiratory No productive sputum 10/13/2014 Respiratory No chest congestion 10/13/2014 Respiratory No cough Respiratory No dyspnea 0 10/13/2014 Gastrointestinal No abdominal pain 10/13/2014 Gastrointestinal No constipation 10/13/2014 Gastrointestinal No diarrhea 10/13/2014 Gastrointestinal No nausea 10/13/2014 Gastrointestinal No vomiting 10/13/2014 Musculoskeletal No stiffness 10/13/2014 Musculoskeletal No swelling 10/13/2014 Musculoskeletal No muscle weakness 10/13/2014 Musculoskeletal No myalgias 10/13/2014 Psychiatric anxiety 09/27 Psychiatric depression 0 10/13/2014 Dermatologic No rash Dermatologic No scar Neurologic No dizziness 10/13/2014 Neurologic No headache 0 10/13/2014 Neurologic No neck pain 10/13/2014 Neurologic No syncope Cardiovascular No chest pain/pressure 10/13/2014 Cardiovascular No dyspnea 10/13/2014 Cardiovascular edema Cardiovascular No exercise intolerance 10/13/2014 Cardiovascular No fatigue 10/13/2014 Cardiovascular hypertension 10/13/2014 Constitutional No chills 08/28/2014 Constitutional No diaphoresis 08/28/2014 Constitutional No fatigue 08/28/2014 Constitutional No fever 08/28/2014 Eyes No eye discharge Eyes No eye erythema 09/2014 Ears/Nose/Throat/Neck No dizziness 08/28/2014 Ears/Nose/Throat/Neck No headache 08/28/2014 Ears/Nose/Throat/Neck No nasal allergies 08/28/2014 Ears/Nose/Throat/Neck No nasal discharge 08/28/2014 Ears/Nose/Throat/Neck No sore throat 08/28/2014 Ears/Nose/Throat/Neck No sinus congestion 08/28/2014 Respiratory No productive sputum 08/28/2014 Respiratory No chest congestion 08/28/2014 Respiratory No cough 09/2014 Respiratory No dyspnea 0 08/28/2014 Gastrointestinal No abdominal pain 08/28/2014 Gastrointestinal No constipation 08/28/2014 Gastrointestinal No diarrhea 08/28/2014 Gastrointestinal No nausea 08/28/2014 Gastrointestinal No vomiting 08/28/2014 Musculoskeletal No stiffness 08/28/2014 Musculoskeletal No swelling 08/28/2014 Musculoskeletal No muscle weakness 08/28/2014 Musculoskeletal No myalgias 08/28/2014 Psychiatric anxiety /0 09/2014 Psychiatric depression 0 08/28/2014 Constitutional No recent illness 08/28/2014 Constitutional recent illness 05/07/2014 Constitutional No anorexia 05/07/2014 Constitutional fatigue 0 05/07/2014 Constitutional No fever 05/07/2014 Constitutional No insomnia 05/07/2014 Constitutional chills Constitutional No diaphoresis 05/07/2014 Constitutional No night sweats 05/07/2014 Eyes No eye discharge Eyes No eye erythema 06/2014 Ears/Nose/Throat/Neck nasal allergies 05/07/2014 Ears/Nose/Throat/Neck nasal discharge 05/07/2014 Ears/Nose/Throat/Neck otalgia 05/07/2014 Ears/Nose/Throat/Neck sore throat 05/07/2014 Ears/Nose/Throat/Neck sinus congestion 05/07/2014 Ears/Nose/Throat/Neck No dizziness 05/07/2014 Ears/Nose/Throat/Neck No headache 05/07/2014 Cardiovascular No chest pain/pressure 05/07/2014 Cardiovascular edema 06/2014 Cardiovascular fatigue 0 05/07/2014 Gastrointestinal No abdominal pain 05/07/2014 Gastrointestinal No constipation 05/07/2014 Gastrointestinal No diarrhea 05/07/2014 Gastrointestinal No vomiting 05/07/2014 Gastrointestinal No nausea 05/07/2014 Genitourinary/Nephrology No dysuria 05/07/2014 Genitourinary/Nephrology urinary urgency 05/07/2014 Genitourinary/Nephrology urinary frequency 05/07/2014 Dermatologic No rash 06/2014 Neurologic No alteration of consciousness 05/07/2014 Psychiatric No depression 05/07/2014 Constitutional No chills 04/16/2014 Constitutional No diaphoresis 04/16/2014 Constitutional No fatigue 04/16/2014 Constitutional No fever 04/16/2014 Eyes No eye discharge Eyes No eye erythema Ears/Nose/Throat/Neck No dizziness 04/16/2014 Ears/Nose/Throat/Neck No headache 04/16/2014 Ears/Nose/Throat/Neck No nasal allergies 04/16/2014 Ears/Nose/Throat/Neck No nasal discharge 04/16/2014 Ears/Nose/Throat/Neck No sore throat 04/16/2014 Ears/Nose/Throat/Neck No sinus congestion 04/16/2014 Respiratory No productive sputum 04/16/2014 Respiratory No chest congestion 04/16/2014 Respiratory No cough Respiratory No dyspnea 0 04/16/2014 Gastrointestinal No abdominal pain 04/16/2014 Gastrointestinal No constipation 04/16/2014 Gastrointestinal No diarrhea 04/16/2014 Gastrointestinal No nausea 04/16/2014 Gastrointestinal No vomiting 04/16/2014 Musculoskeletal No stiffness 04/16/2014 Musculoskeletal No swelling 04/16/2014 Musculoskeletal No muscle weakness 04/16/2014 Musculoskeletal No myalgias 04/16/2014 Psychiatric anxiety 03/28 Psychiatric depression 0 04/16/2014 Constitutional No recent illness 01/27/2014 Constitutional No anorexia 01/27/2014 Constitutional No night sweats 01/27/2014 Constitutional No chills 01/27/2014 Constitutional No diaphoresis 01/27/2014 Constitutional fatigue 0 01/27/2014 Constitutional No fever 01/27/2014 Constitutional No insomnia 01/27/2014 Constitutional No malaise 01/27/2014 Constitutional No weight loss 01/27/2014 Constitutional No weight gain 01/27/2014 Constitutional No chills 01/21/2014 Constitutional No diaphoresis 01/21/2014 Constitutional No fatigue 01/21/2014 Constitutional No fever 01/21/2014 Eyes No eye discharge Eyes No eye erythema Ears/Nose/Throat/Neck No dizziness 01/21/2014 Ears/Nose/Throat/Neck No headache 01/21/2014 Ears/Nose/Throat/Neck No nasal allergies 01/21/2014 Ears/Nose/Throat/Neck No nasal discharge 01/21/2014 Ears/Nose/Throat/Neck No sore throat 01/21/2014 Ears/Nose/Throat/Neck No sinus congestion 01/21/2014 Respiratory No productive sputum 01/21/2014 Respiratory No chest congestion 01/21/2014 Respiratory No cough Respiratory No dyspnea 0 01/21/2014 Gastrointestinal No abdominal pain 01/21/2014 Gastrointestinal No constipation 01/21/2014 Gastrointestinal No diarrhea 01/21/2014 Gastrointestinal No nausea 01/21/2014 Gastrointestinal No vomiting 01/21/2014 Musculoskeletal No stiffness 01/21/2014 Musculoskeletal No swelling 01/21/2014 Musculoskeletal No muscle weakness 01/21/2014 Musculoskeletal No myalgias 01/21/2014 Psychiatric anxiety 12/26 Psychiatric depression 0 01/21/2014 Constitutional No recent illness 01/07/2014 Constitutional No anorexia 01/07/2014 Constitutional No night sweats 01/07/2014 Constitutional No chills 01/07/2014 Constitutional No diaphoresis 01/07/2014 Constitutional No fatigue 01/07/2014 Constitutional No fever 01/07/2014 Constitutional No insomnia 01/07/2014 Constitutional No malaise 01/07/2014 Eyes No eye discharge Eyes No eye erythema Cardiovascular No chest pain/pressure 01/07/2014 Respiratory No cough Gastrointestinal No abdominal pain 01/07/2014 Gastrointestinal No constipation 01/07/2014 Gastrointestinal No diarrhea 01/07/2014 Genitourinary/Nephrology No dysuria 01/07/2014 Dermatologic erythema Dermatologic No rash Constitutional recent illness 12/26/2013 Constitutional No anorexia 12/26/2013 Constitutional No night sweats 12/26/2013 Constitutional No chills 12/26/2013 Constitutional No diaphoresis 12/26/2013 Constitutional fatigue 0 12/26/2013 Constitutional No fever 12/26/2013 Constitutional No insomnia 12/26/2013 Constitutional No malaise 12/26/2013 Eyes No eye discharge Eyes No eye erythema 09/2013 Cardiovascular No chest pain/pressure 12/26/2013 Gastrointestinal No abdominal pain 12/26/2013 Gastrointestinal No constipation 12/26/2013 Gastrointestinal No diarrhea 12/26/2013 Genitourinary/Nephrology No dysuria 12/26/2013 Musculoskeletal No joint complaint 12/26/2013 Dermatologic No rash 09/2013 Dermatologic No sores Constitutional No recent illness 11/12/2013 Constitutional No anorexia 11/12/2013 Constitutional No night sweats 11/12/2013 Constitutional No chills 11/12/2013 Constitutional No diaphoresis 11/12/2013 Constitutional No fatigue 11/12/2013 Constitutional No fever 11/12/2013 Constitutional No insomnia 11/12/2013 Constitutional No malaise 11/12/2013 Eyes No eye discharge Eyes No eye erythema Cardiovascular No chest pain/pressure 11/12/2013 Respiratory No cough Gastrointestinal No abdominal pain 11/12/2013 Gastrointestinal No constipation 11/12/2013 Gastrointestinal No diarrhea 11/12/2013 Genitourinary/Nephrology No dysuria 11/12/2013 Dermatologic No rash Dermatologic erythema Constitutional recent illness 10/09/2013 Constitutional No anorexia 10/09/2013 Constitutional No night sweats 10/09/2013 Constitutional No chills 10/09/2013 Constitutional No fatigue 10/09/2013 Constitutional No diaphoresis 10/09/2013 Constitutional No fever 10/09/2013 Constitutional No insomnia 10/09/2013 Eyes No eye discharge Eyes No eye erythema Cardiovascular No chest pain/pressure 10/09/2013 Respiratory No productive sputum 10/09/2013 Respiratory No chest congestion 10/09/2013 Respiratory No cough Gastrointestinal No abdominal pain 10/09/2013 Gastrointestinal No constipation 10/09/2013 Gastrointestinal No diarrhea 10/09/2013 Gastrointestinal No vomiting 10/09/2013 Gastrointestinal No odynophagia 10/09/2013 Genitourinary/Nephrology No dysuria 10/09/2013 Dermatologic No rash Dermatologic No sores Constitutional No chills 04/03/2013 Constitutional No diaphoresis 04/03/2013 Constitutional No fatigue 04/03/2013 Constitutional No fever 04/03/2013 Eyes No eye discharge Eyes No eye erythema 03/2013 Ears/Nose/Throat/Neck No dizziness 04/03/2013 Ears/Nose/Throat/Neck No headache 04/03/2013 Ears/Nose/Throat/Neck No nasal allergies 04/03/2013 Ears/Nose/Throat/Neck No nasal discharge 04/03/2013 Ears/Nose/Throat/Neck No sore throat 04/03/2013 Ears/Nose/Throat/Neck No sinus congestion 04/03/2013 Respiratory No productive sputum 04/03/2013 Respiratory No chest congestion 04/03/2013 Respiratory No cough 03/2013 Respiratory No dyspnea 0 04/03/2013 Gastrointestinal No abdominal pain 04/03/2013 Gastrointestinal No constipation 04/03/2013 Gastrointestinal No diarrhea 04/03/2013 Gastrointestinal No nausea 04/03/2013 Gastrointestinal No vomiting 04/03/2013 Musculoskeletal No stiffness 04/03/2013 Musculoskeletal No swelling 04/03/2013 Musculoskeletal No muscle weakness 04/03/2013 Musculoskeletal No myalgias 04/03/2013 Psychiatric anxiety 08/03/2013 Psychiatric depression 0 04/03/2013 Constitutional No chills 01/06/2013 Constitutional No diaphoresis 01/06/2013 Constitutional No fatigue 01/06/2013 Constitutional No fever 01/06/2013 Eyes No eye discharge Eyes No eye erythema Ears/Nose/Throat/Neck No dizziness 01/06/2013 Ears/Nose/Throat/Neck No headache 01/06/2013 Ears/Nose/Throat/Neck No nasal allergies 01/06/2013 Ears/Nose/Throat/Neck No nasal discharge 01/06/2013 Ears/Nose/Throat/Neck No sore throat 01/06/2013 Ears/Nose/Throat/Neck No sinus congestion 01/06/2013 Respiratory No productive sputum 01/06/2013 Respiratory No chest congestion 01/06/2013 Respiratory No cough Respiratory No dyspnea 0 01/06/2013 Gastrointestinal No abdominal pain 01/06/2013 Gastrointestinal No constipation 01/06/2013 Gastrointestinal No diarrhea 01/06/2013 Gastrointestinal No nausea 01/06/2013 Gastrointestinal No vomiting 01/06/2013 Musculoskeletal No stiffness 01/06/2013 Musculoskeletal No swelling 01/06/2013 Musculoskeletal No muscle weakness 01/06/2013 Musculoskeletal No myalgias 01/06/2013 Psychiatric anxiety 05/1 10/2012 Psychiatric depression 0 01/06/2013 Constitutional No recent illness 11/21/2012 Constitutional No anorexia 11/21/2012 Constitutional No night sweats 11/21/2012 Constitutional No fatigue 11/21/2012 Constitutional No chills 11/21/2012 Constitutional No diaphoresis 11/21/2012 Constitutional No fever 11/21/2012 Constitutional No insomnia 11/21/2012 Constitutional No malaise 11/21/2012 Eyes No eye discharge Eyes No eye erythema Ears/Nose/Throat/Neck No dizziness 11/21/2012 Ears/Nose/Throat/Neck hoarseness 11/21/2012 Ears/Nose/Throat/Neck No nasal discharge 11/21/2012 Ears/Nose/Throat/Neck No sore throat 11/21/2012 Ears/Nose/Throat/Neck No sinus congestion 11/21/2012 Cardiovascular No chest pain/pressure 11/21/2012 Gastrointestinal No abdominal pain 11/21/2012 Gastrointestinal No constipation 11/21/2012 Gastrointestinal No diarrhea 11/21/2012 Gastrointestinal No nausea 11/21/2012 Gastrointestinal No vomiting 11/21/2012 Genitourinary/Nephrology No dysuria 11/21/2012 Dermatologic No rash Dermatologic No sores Musculoskeletal No myalgias 10/28/2012 Psychiatric anxiety 03/0 11/2012 Psychiatric depression 0 10/28/2012 Constitutional No chills 10/28/2012 Constitutional No diaphoresis 10/28/2012 Constitutional No fatigue 10/28/2012 Constitutional No fever 10/28/2012 Eyes No eye discharge Eyes No eye erythema 11/2012 Ears/Nose/Throat/Neck No dizziness 10/28/2012 Ears/Nose/Throat/Neck No headache 10/28/2012 Ears/Nose/Throat/Neck No nasal allergies 10/28/2012 Ears/Nose/Throat/Neck No nasal discharge 10/28/2012 Ears/Nose/Throat/Neck No sore throat 10/28/2012 Ears/Nose/Throat/Neck No sinus congestion 10/28/2012 Respiratory No productive sputum 10/28/2012 Respiratory No chest congestion 10/28/2012 Respiratory No cough 11/2012 Respiratory No dyspnea 0 10/28/2012 Gastrointestinal No abdominal pain 10/28/2012 Gastrointestinal No constipation 10/28/2012 Gastrointestinal No diarrhea 10/28/2012 Gastrointestinal No nausea 10/28/2012 Gastrointestinal No vomiting 10/28/2012 Musculoskeletal No stiffness 10/28/2012 Musculoskeletal No swelling 10/28/2012 Musculoskeletal No muscle weakness 10/28/2012 Constitutional No chills 09/30/2012 Constitutional No diaphoresis 09/30/2012 Constitutional No fatigue 09/30/2012 Constitutional No fever 09/30/2012 Eyes No eye discharge Eyes No eye erythema 11/2012 Ears/Nose/Throat/Neck No dizziness 09/30/2012 Ears/Nose/Throat/Neck No headache 09/30/2012 Ears/Nose/Throat/Neck No nasal allergies 09/30/2012 Ears/Nose/Throat/Neck No nasal discharge 09/30/2012 Ears/Nose/Throat/Neck No sore throat 09/30/2012 Ears/Nose/Throat/Neck No sinus congestion 09/30/2012 Cardiovascular No chest pain/pressure 09/30/2012 Respiratory No productive sputum 09/30/2012 Respiratory No chest congestion 09/30/2012 Respiratory No cough 11/2012 Respiratory No dyspnea 0 09/30/2012 Gastrointestinal No abdominal pain 09/30/2012 Gastrointestinal No constipation 09/30/2012 Gastrointestinal No diarrhea 09/30/2012 Gastrointestinal No nausea 09/30/2012 Gastrointestinal No vomiting 09/30/2012 Psychiatric anxiety 11/2012 Psychiatric depression 0 09/30/2012 Musculoskeletal No stiffness 09/30/2012 Musculoskeletal No swelling 09/30/2012 Musculoskeletal No muscle weakness 09/30/2012 Musculoskeletal No myalgias 09/30/2012 Constitutional No chills 08/14/2012 Constitutional No diaphoresis 08/14/2012 Constitutional No fatigue 08/14/2012 Constitutional No fever 08/14/2012 Eyes No eye discharge Eyes No eye erythema Ears/Nose/Throat/Neck No dizziness 08/14/2012 Ears/Nose/Throat/Neck No headache 08/14/2012 Ears/Nose/Throat/Neck No nasal allergies 08/14/2012 Ears/Nose/Throat/Neck No nasal discharge 08/14/2012 Ears/Nose/Throat/Neck No sore throat 08/14/2012 Ears/Nose/Throat/Neck No sinus congestion 08/14/2012 Cardiovascular No chest pain/pressure 08/14/2012 Respiratory No productive sputum 08/14/2012 Respiratory No chest congestion 08/14/2012 Respiratory No cough Respiratory No dyspnea 1 10/15/2011 Gastrointestinal No abdominal pain 08/14/2012 Gastrointestinal No constipation 08/14/2012 Gastrointestinal No diarrhea 08/14/2012 Gastrointestinal No nausea 08/14/2012 Gastrointestinal No vomiting 08/14/2012 Psychiatric anxiety 07/27 Psychiatric depression 1 10/15/2011 Constitutional No chills 08/05/2012 Constitutional No diaphoresis 08/05/2012 Constitutional No fatigue 08/05/2012 Constitutional No fever 08/05/2012 Eyes No eye discharge Eyes No eye erythema 05/2012 Ears/Nose/Throat/Neck No dizziness 08/05/2012 Ears/Nose/Throat/Neck No headache 08/05/2012 Ears/Nose/Throat/Neck No nasal allergies 08/05/2012 Ears/Nose/Throat/Neck No nasal discharge 08/05/2012 Ears/Nose/Throat/Neck No sore throat 08/05/2012 Ears/Nose/Throat/Neck No sinus congestion 08/05/2012 Cardiovascular No chest pain/pressure 08/05/2012 Respiratory No productive sputum 08/05/2012 Respiratory No chest congestion 08/05/2012 Respiratory No cough 05/2012 Respiratory No dyspnea 1 10/06/2011 Gastrointestinal No abdominal pain 08/05/2012 Gastrointestinal No constipation 08/05/2012 Gastrointestinal No diarrhea 08/05/2012 Gastrointestinal No nausea 08/05/2012 Gastrointestinal No vomiting 08/05/2012 Psychiatric anxiety 07/27 Psychiatric depression 1 10/06/2011 Constitutional No chills 07/15/2012 Constitutional No diaphoresis 07/15/2012 Constitutional No fatigue 07/15/2012 Constitutional No fever 07/15/2012 Eyes No eye discharge Eyes No eye erythema Ears/Nose/Throat/Neck No dizziness 07/15/2012 Ears/Nose/Throat/Neck No headache 07/15/2012 Ears/Nose/Throat/Neck No nasal allergies 07/15/2012 Ears/Nose/Throat/Neck No nasal discharge 07/15/2012 Ears/Nose/Throat/Neck No sinus congestion 07/15/2012 Ears/Nose/Throat/Neck No sore throat 07/15/2012 Cardiovascular No chest pain/pressure 07/15/2012 Respiratory No productive sputum 07/15/2012 Respiratory No chest congestion 07/15/2012 Respiratory No cough Respiratory No dyspnea 1 09/14/2011 Gastrointestinal No abdominal pain 07/15/2012 Gastrointestinal No constipation 07/15/2012 Gastrointestinal No diarrhea 07/15/2012 Gastrointestinal No nausea 07/15/2012 Gastrointestinal No vomiting 07/15/2012 Psychiatric anxiety 06/27 Psychiatric depression 1 09/14/2011 Constitutional No recent illness 05/27/2012 Constitutional No chills 05/27/2012 Constitutional No fatigue 05/27/2012 Constitutional No fever 05/27/2012 Constitutional No insomnia 05/27/2012 Constitutional No malaise 05/27/2012 Cardiovascular No chest pain/pressure 05/27/2012 Cardiovascular No dyspnea 05/27/2012 Cardiovascular No edema 05/27/2012 Cardiovascular No exercise intolerance 05/27/2012 Cardiovascular No fatigue 05/27/2012 Cardiovascular No near-syncope/dizziness 05/27/2012 Respiratory No chest tightness 05/27/2012 Respiratory No cigarette smoking 05/27/2012 Respiratory No cough 08/2011 Respiratory No dyspnea 1 Respiratory No pedal edema 05/27/2012 Respiratory No snoring 1 Respiratory No wheezing 05/27/2012 Constitutional No insomnia 05/03/2012 Constitutional No recent illness 05/03/2012 Constitutional No anorexia 05/03/2012 Constitutional No night sweats 05/03/2012 Constitutional No chills 05/03/2012 Constitutional No diaphoresis 05/03/2012 Constitutional No fever 05/03/2012 Constitutional No fatigue 05/03/2012 Eyes No eye discharge Eyes No eye erythema 02/2012 Ears/Nose/Throat/Neck No dizziness 05/03/2012 Ears/Nose/Throat/Neck No nasal discharge 05/03/2012 Ears/Nose/Throat/Neck No sinus congestion 05/03/2012 Ears/Nose/Throat/Neck No sore throat 05/03/2012 Cardiovascular No chest pain/pressure 05/03/2012 Cardiovascular No dyspnea 05/03/2012 Respiratory No chest congestion 05/03/2012 Respiratory No cough 02/2012 Gastrointestinal No abdominal pain 05/03/2012 Gastrointestinal No constipation 05/03/2012 Gastrointestinal No diarrhea 05/03/2012 Gastrointestinal No nausea 05/03/2012 Gastrointestinal No vomiting 05/03/2012 Musculoskeletal No joint complaint 05/03/2012 Dermatologic No rash 02/2012 Cardiovascular No near-syncope/dizziness 04/23/2012 Respiratory No chest tightness 04/23/2012 Respiratory No cigarette smoking 04/23/2012 Respiratory No cough Respiratory No dyspnea 0 04/23/2012 Respiratory No pedal edema 04/23/2012 Respiratory No snoring 0 04/23/2012 Respiratory No wheezing 04/23/2012 Psychiatric No anxiety 0 04/23/2012 Psychiatric No depression 04/23/2012 Constitutional No recent illness 04/23/2012 Constitutional No chills 04/23/2012 Constitutional No fatigue 04/23/2012 Constitutional No fever 04/23/2012 Constitutional No insomnia 04/23/2012 Constitutional No malaise 04/23/2012 Cardiovascular No chest pain/pressure 04/23/2012 Cardiovascular No dyspnea 04/23/2012 Cardiovascular edema Cardiovascular No exercise intolerance 04/23/2012 Cardiovascular No fatigue 04/23/2012 Constitutional No recent illness 03/25/2012 Constitutional No anorexia 03/25/2012 Constitutional No night sweats 03/25/2012 Constitutional No chills 03/25/2012 Constitutional No diaphoresis 03/25/2012 Constitutional No fatigue 03/25/2012 Constitutional No fever 03/25/2012 Constitutional No insomnia 03/25/2012 Constitutional No malaise 03/25/2012 Eyes No eye discharge Eyes No eye erythema Ears/Nose/Throat/Neck No dizziness 03/25/2012 Ears/Nose/Throat/Neck No headache 03/25/2012 Ears/Nose/Throat/Neck No nasal discharge 03/25/2012 Respiratory No productive sputum 03/25/2012 Respiratory No chest congestion 03/25/2012 Respiratory No cough Gastrointestinal No vomiting 03/25/2012 Gastrointestinal No nausea 03/25/2012 Gastrointestinal No constipation 03/25/2012 Gastrointestinal No diarrhea 03/25/2012 Genitourinary/Nephrology No dysuria 03/25/2012 Constitutional No recent illness 03/12/2012 Constitutional No anorexia 03/12/2012 Constitutional No night sweats 03/12/2012 Constitutional No chills 03/12/2012 Constitutional No diaphoresis 03/12/2012 Constitutional No fatigue 03/12/2012 Constitutional No fever 03/12/2012 Constitutional No insomnia 03/12/2012 Constitutional No malaise 03/12/2012 Constitutional No obesity 03/12/2012 Eyes No eye discharge Eyes No eye erythema Ears/Nose/Throat/Neck No dizziness 03/12/2012 Ears/Nose/Throat/Neck No headache 03/12/2012 Ears/Nose/Throat/Neck No nasal allergies 03/12/2012 Ears/Nose/Throat/Neck No nasal discharge 03/12/2012 Ears/Nose/Throat/Neck No otalgia 03/12/2012 Respiratory No productive sputum 03/12/2012 Respiratory No chest congestion 03/12/2012 Respiratory No cough Gastrointestinal No abdominal pain 03/12/2012 Gastrointestinal No diarrhea 03/12/2012 Gastrointestinal No constipation 03/12/2012 Gastrointestinal gas and bloating 03/12/2012 Gastrointestinal No nausea 03/12/2012 Gastrointestinal No vomiting 03/12/2012 Genitourinary/Nephrology No dysuria 03/12/2012 Dermatologic No rash Dermatologic No sores Dermatologic mole change 03/12/2012 Neurologic No alteration of consciousness 03/12/2012 Constitutional No chills 01/23/2012 Constitutional No diaphoresis 01/23/2012 Constitutional No fatigue 01/23/2012 Constitutional No fever 01/23/2012 Eyes No eye discharge Eyes No eye erythema Ears/Nose/Throat/Neck No dizziness 01/23/2012 Ears/Nose/Throat/Neck No nasal allergies 01/23/2012 Ears/Nose/Throat/Neck No nasal discharge 01/23/2012 Ears/Nose/Throat/Neck No sinus congestion 01/23/2012 Ears/Nose/Throat/Neck No sore throat 01/23/2012 Respiratory No productive sputum 01/23/2012 Respiratory No chest congestion 01/23/2012 Respiratory No cough Gastrointestinal No abdominal pain 01/23/2012 Gastrointestinal No constipation 01/23/2012 Gastrointestinal No diarrhea 01/23/2012 Gastrointestinal No nausea 01/23/2012 Gastrointestinal No vomiting 01/23/2012 Psychiatric anxiety 12/26 Psychiatric depression 0 01/23/2012 Musculoskeletal No stiffness 01/23/2012 Neurologic No dizziness 01/23/2012 Constitutional No recent illness 01/12/2012 Constitutional No anorexia 01/12/2012 Constitutional No night sweats 01/12/2012 Constitutional No chills 01/12/2012 Constitutional No diaphoresis 01/12/2012 Constitutional No fatigue 01/12/2012 Constitutional No fever 01/12/2012 Constitutional No insomnia 01/12/2012 Cardiovascular No chest pain/pressure 01/12/2012 Cardiovascular No hypertension 01/12/2012 Cardiovascular No fatigue 01/12/2012 Ears/Nose/Throat/Neck No dizziness 12/25/2011 Ears/Nose/Throat/Neck No headache 12/25/2011 Ears/Nose/Throat/Neck No sore throat 12/25/2011 Respiratory No productive sputum 12/25/2011 Respiratory No chest congestion 12/25/2011 Respiratory No dyspnea 0 12/25/2011 Psychiatric anxiety 11/27 Psychiatric depression 0 12/25/2011 Musculoskeletal No stiffness 12/25/2011 Musculoskeletal arthralgia(s) 12/25/2011 Cardiovascular dyspnea 0 12/25/2011 Cardiovascular No edema 12/25/2011 Constitutional No chills 12/25/2011 Constitutional No fever 12/25/2011 Ears/Nose/Throat/Neck No nasal discharge 12/25/2011 Ears/Nose/Throat/Neck No nasal allergies 12/25/2011 Ears/Nose/Throat/Neck No sinus congestion 12/25/2011 Cardiovascular No chest pain/pressure 12/25/2011 Respiratory No cough Gastrointestinal No abdominal pain 12/25/2011 Gastrointestinal No constipation 12/25/2011 Gastrointestinal No diarrhea 12/25/2011 Gastrointestinal No vomiting 12/25/2011 Gastrointestinal No nausea 12/25/2011 Constitutional No diaphoresis 12/25/2011 Constitutional No fatigue 12/25/2011 Eyes No eye discharge Eyes No eye erythema Eyes No vision change Cardiovascular palpitations 12/04/2011 Genitourinary/Nephrology No dysuria 12/04/2011 Neurologic No alteration of consciousness 12/04/2011 Constitutional recent illness 12/04/2011 Ears/Nose/Throat/Neck No dizziness 12/04/2011 Ears/Nose/Throat/Neck No headache 12/04/2011 Cardiovascular No chest pain/pressure 12/04/2011 Respiratory No chest congestion 12/04/2011 Respiratory No cough 04/2012 Gastrointestinal No constipation 12/04/2011 Gastrointestinal No nausea 12/04/2011 Gastrointestinal No vomiting 12/04/2011 Constitutional No chills 12/04/2011 Constitutional No diaphoresis 12/04/2011 Constitutional No fatigue 12/04/2011 Constitutional No fever 12/04/2011 Eyes No eye discharge Eyes No eye erythema 04/2012 Ears/Nose/Throat/Neck No nasal allergies 12/04/2011 Ears/Nose/Throat/Neck No nasal discharge 12/04/2011 Ears/Nose/Throat/Neck No sinus congestion 12/04/2011 Ears/Nose/Throat/Neck No sore throat 12/04/2011 Respiratory No productive sputum 12/04/2011 Respiratory No dyspnea 0 12/04/2011 Gastrointestinal No abdominal pain 12/04/2011 Gastrointestinal No diarrhea 12/04/2011 Psychiatric anxiety 04/0 04/2012 Psychiatric depression 0 12/04/2011 Ears/Nose/Throat/Neck No headache 09/20/2011 Respiratory No dyspnea 0 09/20/2011 Constitutional No chills 09/20/2011 Constitutional No fever 09/20/2011 Ears/Nose/Throat/Neck No dizziness 09/20/2011 Cardiovascular No chest pain/pressure 09/20/2011 Gastrointestinal No nausea 09/20/2011 Gastrointestinal No vomiting 09/20/2011 Constitutional recent illness 09/20/2011 Constitutional No diaphoresis 09/20/2011 Constitutional No fatigue 09/20/2011 Eyes No eye discharge Eyes No eye erythema Ears/Nose/Throat/Neck No nasal allergies 09/20/2011 Ears/Nose/Throat/Neck No nasal discharge 09/20/2011 Ears/Nose/Throat/Neck No sinus congestion 09/20/2011 Ears/Nose/Throat/Neck No sore throat 09/20/2011 Respiratory No productive sputum 09/20/2011 Respiratory No chest congestion 09/20/2011 Respiratory No cough Gastrointestinal No abdominal pain 09/20/2011 Gastrointestinal No constipation 09/20/2011 Gastrointestinal No diarrhea 09/20/2011 Psychiatric anxiety 08/28 Psychiatric depression 0 09/20/2011 Constitutional recent illness 09/06/2011 Constitutional No chills 09/06/2011 Constitutional No diaphoresis 09/06/2011 Constitutional No fatigue 09/06/2011 Constitutional No fever 09/06/2011 Eyes No eye discharge Eyes No eye erythema 06/2012 Ears/Nose/Throat/Neck No dizziness 09/06/2011 Ears/Nose/Throat/Neck No nasal allergies 09/06/2011 Ears/Nose/Throat/Neck No nasal discharge 09/06/2011 Ears/Nose/Throat/Neck No sore throat 09/06/2011 Ears/Nose/Throat/Neck No sinus congestion 09/06/2011 Cardiovascular No chest pain/pressure 09/06/2011 Respiratory No productive sputum 09/06/2011 Respiratory No cough 06/2012 Respiratory No chest congestion 09/06/2011 Gastrointestinal No abdominal pain 09/06/2011 Gastrointestinal No nausea 09/06/2011 Gastrointestinal No vomiting 09/06/2011 Gastrointestinal No constipation 09/06/2011 Gastrointestinal No diarrhea 09/06/2011 Psychiatric anxiety 08/27 Psychiatric depression 0 09/06/2011 Constitutional No night sweats 08/30/2011 Constitutional No fatigue 08/30/2011 Constitutional No fever 08/30/2011 Dermatologic No rash 11/2011 Dermatologic No sores Psychiatric No anxiety 0 08/30/2011 Psychiatric No depression 08/30/2011 Gastrointestinal abdominal pain 08/30/2011 Gastrointestinal constipation 08/30/2011 Cardiovascular hypertension 08/30/2011 Cardiovascular fatigue 0 08/30/2011 Cardiovascular No chest pain/pressure 08/30/2011 Respiratory No cough 11/2011 Respiratory No chest congestion 08/30/2011 Respiratory No chest tightness 08/30/2011 Neurologic No dizziness 08/30/2011 Neurologic No headache 0 08/30/2011 Musculoskeletal No back pain 08/30/2011 Musculoskeletal arthralgia(s) 08/30/2011 Constitutional No recent illness 08/23/2011 Constitutional chills Constitutional fatigue 1 10/24/2010 Constitutional fever Eyes No eye discharge Eyes No eye erythema Ears/Nose/Throat/Neck No dizziness 08/23/2011 Ears/Nose/Throat/Neck headache 08/23/2011 Ears/Nose/Throat/Neck No hoarseness 08/23/2011 Ears/Nose/Throat/Neck nasal discharge 08/23/2011 Ears/Nose/Throat/Neck sinus congestion 08/23/2011 Ears/Nose/Throat/Neck No sore throat 08/23/2011 Cardiovascular No chest pain/pressure 08/23/2011 Respiratory No productive sputum 08/23/2011 Respiratory No cough Respiratory No dyspnea 1 10/24/2010 Gastrointestinal No abdominal pain 08/23/2011 Gastrointestinal No nausea 08/23/2011 Gastrointestinal No vomiting 08/23/2011 Gastrointestinal No constipation 08/23/2011 Gastrointestinal No diarrhea 08/23/2011 Genitourinary/Nephrology No dysuria 08/23/2011 Genitourinary/Nephrology urinary frequency 08/23/2011 Genitourinary/Nephrology urinary urgency 08/23/2011 Dermatologic No rash Constitutional No recent illness 08/09/2011 Constitutional No chills 08/09/2011 Constitutional No diaphoresis 08/09/2011 Constitutional No fatigue 08/09/2011 Constitutional No fever 08/09/2011 Constitutional No insomnia 08/09/2011 Eyes No eye discharge Eyes No eye erythema Ears/Nose/Throat/Neck No headache 08/09/2011 Cardiovascular No chest pain/pressure 08/09/2011 Genitourinary/Nephrology No breast c omplaint 08/09/2011 Genitourinary/Nephrology No dysuria 08/09/2011 Genitourinary/Nephrology No vaginal discharge 08/09/2011 Genitourinary/Nephrology No pelvic pain 08/09/2011 Dermatologic sores 08/09 Constitutional No chills 05/04/2011 Ears/Nose/Throat/Neck facial pain 05/04/2011 Ears/Nose/Throat/Neck No dizziness 05/04/2011 Cardiovascular No chest pain/pressure 05/04/2011 Cardiovascular No palpitations 05/04/2011 Respiratory No chest congestion 05/04/2011 Respiratory No chest tightness 05/04/2011 Respiratory No cough 03/2011 Genitourinary/Nephrology No urinary urgenc y 05/04/2011 Genitourinary/Nephrology No urinary frequency 05/04/2011 Genitourinary/Nephrology No urinary incontinence 05/04/2011 Musculoskeletal No back pain 05/04/2011 Dermatologic No rash 03/2011 Dermatologic No sores Neurologic No ataxia 03/2011 Neurologic No dizziness 05/04/2011 Neurologic No pain, back 05/04/2011 Psychiatric No anxiety 0 05/04/2011 Psychiatric No depression 05/04/2011 Musculoskeletal joint complaint 05/04/2011 Respiratory No chest tightness 04/19/2011 Respiratory cough 2010 Respiratory No daytime hypersomnolence 04/19/2011 Constitutional fever Constitutional chills Constitutional fatigue 0 04/19/2011 Constitutional No insomnia 04/19/2011 Eyes No eye discharge Eyes No eye pain 011 Eyes No vision change Ears/Nose/Throat/Neck No dental pain 04/19/2011 Ears/Nose/Throat/Neck No dizziness 04/19/2011 Ears/Nose/Throat/Neck No dysphagia 04/19/2011 Ears/Nose/Throat/Neck facial pain 04/19/2011 Ears/Nose/Throat/Neck headache 04/19/2011 Ears/Nose/Throat/Neck nasal allergies 04/19/2011 Ears/Nose/Throat/Neck nasal discharge 04/19/2011 Gastrointestinal No nausea 04/19/2011 Gastrointestinal No vomiting 04/19/2011 Genitourinary/Nephrology No dysuria 04/19/2011 Genitourinary/Nephrology No hematuria 04/19/2011 Genitourinary/Nephrology No urinary urgenc y 04/19/2011 Genitourinary/Nephrology No urinary frequency 04/19/2011 Dermatologic No rash Ears/Nose/Throat/Neck No neck pain 04/19/2011 Ears/Nose/Throat/Neck No otitis media 04/19/2011 Ears/Nose/Throat/Neck postnasal drip 04/19/2011 Ears/Nose/Throat/Neck sinus congestion 04/19/2011 Ears/Nose/Throat/Neck sore throat 04/19/2011 Ears/Nose/Throat/Neck No tinnitus 04/19/2011 Cardiovascular No chest pain/pressure 04/19/2011 Cardiovascular No paroxysmal nocturn al dyspnea 04/19/2011 Cardiovascular No syncope 04/19/2011 Cardiovascular No edema 04/19/2011 Respiratory asthma 04/19 Respiratory productive sputum 04/19/2011 Respiratory chest congestion 04/19/2011 Respiratory No dyspnea on exertion 04/19/2011 Respiratory No hemoptysis 04/19/2011 Respiratory wheezing Respiratory No pedal edema 04/19/2011 Gastrointestinal gastroesophageal reflux 04/19/2011 Gastrointestinal No diarrhea 04/19/2011 Gastrointestinal No constipation 04/19/2011 Ears/Nose/Throat/Neck hoarseness 04/19/2011 System Result Effective Dates Constitutional No recent illness 05/02/2019 Constitutional No chills 05/02/2019 Constitutional No diaphoresis 05/02/2019 Constitutional No fever 05/02/2019 Eyes No eye erythema 01/2019 Ears/Nose/Throat/Neck No nasal discharge 05/02/2019 Cardiovascular No chest pain/pressure 05/02/2019 Respiratory No cough 01/2019 Neurologic No alteration of consciousness 05/02/2019 Neurologic No mental status change 05/02/2019 Dermatologic ecchymosis 05/02/2019 Dermatologic erythema Constitutional No recent illness 04/01/2019 Constitutional No anorexia 04/01/2019 Constitutional No night sweats 04/01/2019 Constitutional No chills 04/01/2019 Constitutional No diaphoresis 04/01/2019 Constitutional No fatigue 04/01/2019 Constitutional No fever 04/01/2019 Constitutional insomnia 04/01/2019 Constitutional No malaise 04/01/2019 Eyes No eye discharge Eyes No eye erythema 01/2019 Ears/Nose/Throat/Neck No dizziness 04/01/2019 Ears/Nose/Throat/Neck No headache 04/01/2019 Ears/Nose/Throat/Neck No nasal allergies 04/01/2019 Ears/Nose/Throat/Neck No nasal discharge 04/01/2019 Ears/Nose/Throat/Neck No sore throat 04/01/2019 Ears/Nose/Throat/Neck No sinus congestion 04/01/2019 Cardiovascular No chest pain/pressure 04/01/2019 Cardiovascular No dyspnea 04/01/2019 Cardiovascular edema 01/2019 Cardiovascular No exercise intolerance 04/01/2019 Cardiovascular No fatigue 04/01/2019 Cardiovascular hypertension 04/01/2019 Respiratory No productive sputum 04/01/2019 Respiratory No chest congestion 04/01/2019 Respiratory No cough 01/2019 Respiratory dyspnea on exertion 04/01/2019 Respiratory No dyspnea 0 04/01/2019 Gastrointestinal No abdominal pain 04/01/2019 Gastrointestinal No constipation 04/01/2019 Gastrointestinal No nausea 04/01/2019 Gastrointestinal No vomiting 04/01/2019 Genitourinary/Nephrology No dysuria 04/01/2019 Musculoskeletal No stiffness 04/01/2019 Musculoskeletal No swelling 04/01/2019 Musculoskeletal back pain 04/01/2019 Musculoskeletal joint complaint 04/01/2019 Musculoskeletal No muscle weakness 04/01/2019 Musculoskeletal No myalgias 04/01/2019 Dermatologic No rash 01/2019 Dermatologic No scar 01/2019 Neurologic No dizziness 04/01/2019 Neurologic No headache 0 04/01/2019 Neurologic No neck pain 04/01/2019 Neurologic No syncope Psychiatric anxiety 08/01/2019 Psychiatric depression 0 04/01/2019 Constitutional No recent illness 03/11/2019 Constitutional No chills 03/11/2019 Constitutional No diaphoresis 03/11/2019 Constitutional No fatigue 03/11/2019 Constitutional No fever 03/11/2019 Constitutional insomnia 03/11/2019 Constitutional No malaise 03/11/2019 Eyes No eye discharge Eyes No eye erythema Ears/Nose/Throat/Neck No dizziness 03/11/2019 Ears/Nose/Throat/Neck No headache 03/11/2019 Ears/Nose/Throat/Neck No nasal allergies 03/11/2019 Ears/Nose/Throat/Neck nasal discharge 03/11/2019 Ears/Nose/Throat/Neck No sore throat 03/11/2019 Ears/Nose/Throat/Neck sinus congestion 03/11/2019 Cardiovascular No chest pain/pressure 03/11/2019 Cardiovascular No dyspnea 03/11/2019 Cardiovascular edema Cardiovascular No exercise intolerance 03/11/2019 Cardiovascular No fatigue 03/11/2019 Cardiovascular hypertension 03/11/2019 Respiratory No productive sputum 03/11/2019 Respiratory chest congestion 03/11/2019 Respiratory cough 2018 Respiratory dyspnea on exertion 03/11/2019 Respiratory No dyspnea 0 03/11/2019 Gastrointestinal No abdominal pain 03/11/2019 Gastrointestinal No constipation 03/11/2019 Gastrointestinal No nausea 03/11/2019 Gastrointestinal No vomiting 03/11/2019 Genitourinary/Nephrology No dysuria 03/11/2019 Musculoskeletal No stiffness 03/11/2019 Musculoskeletal No swelling 03/11/2019 Musculoskeletal back pain 03/11/2019 Musculoskeletal joint complaint 03/11/2019 Musculoskeletal No muscle weakness 03/11/2019 Musculoskeletal No myalgias 03/11/2019 Dermatologic No rash Dermatologic No scar Neurologic No dizziness 03/11/2019 Neurologic No headache 0 03/11/2019 Neurologic No neck pain 03/11/2019 Neurologic No syncope Psychiatric anxiety 02/24 Psychiatric depression 0 03/11/2019 Respiratory chest tightness 03/11/2019 Constitutional No recent illness 09/03/2018 Constitutional No anorexia 09/03/2018 Constitutional No night sweats 09/03/2018 Constitutional No chills 09/03/2018 Constitutional No diaphoresis 09/03/2018 Constitutional No fatigue 09/03/2018 Constitutional No fever 09/03/2018 Constitutional insomnia 09/03/2018 Constitutional No malaise 09/03/2018 Eyes No eye discharge Eyes No eye erythema 03/2019 Ears/Nose/Throat/Neck No dizziness 09/03/2018 Ears/Nose/Throat/Neck No headache 09/03/2018 Ears/Nose/Throat/Neck No nasal allergies 09/03/2018 Ears/Nose/Throat/Neck No nasal discharge 09/03/2018 Ears/Nose/Throat/Neck No sore throat 09/03/2018 Ears/Nose/Throat/Neck No sinus congestion 09/03/2018 Cardiovascular No chest pain/pressure 09/03/2018 Cardiovascular No dyspnea 09/03/2018 Cardiovascular edema 03/2019 Cardiovascular No exercise intolerance 09/03/2018 Cardiovascular No fatigue 09/03/2018 Cardiovascular hypertension 09/03/2018 Respiratory No productive sputum 09/03/2018 Respiratory No chest congestion 09/03/2018 Respiratory No cough 03/2019 Respiratory dyspnea on exertion 09/03/2018 Respiratory No dyspnea 0 09/03/2018 Gastrointestinal No abdominal pain 09/03/2018 Gastrointestinal No constipation 09/03/2018 Gastrointestinal No nausea 09/03/2018 Gastrointestinal No vomiting 09/03/2018 Genitourinary/Nephrology No dysuria 09/03/2018 Musculoskeletal No stiffness 09/03/2018 Musculoskeletal No swelling 09/03/2018 Musculoskeletal joint complaint 09/03/2018 Musculoskeletal No muscle weakness 09/03/2018 Musculoskeletal No myalgias 09/03/2018 Dermatologic No rash 03/2019 Dermatologic No scar 03/2019 Neurologic No dizziness 09/03/2018 Neurologic No headache 0 09/03/2018 Neurologic No neck pain 09/03/2018 Neurologic No syncope Psychiatric anxiety 03/2019 Psychiatric depression 0 09/03/2018 Musculoskeletal back pain 09/03/2018 Constitutional No recent illness 05/29/2018 Constitutional No anorexia 05/29/2018 Constitutional No night sweats 05/29/2018 Constitutional No chills 05/29/2018 Constitutional No diaphoresis 05/29/2018 Constitutional No fatigue 05/29/2018 Constitutional No fever 05/29/2018 Constitutional insomnia 05/29/2018 Constitutional No malaise 05/29/2018 Eyes No eye discharge Eyes No eye erythema 10/2017 Ears/Nose/Throat/Neck No dizziness 05/29/2018 Ears/Nose/Throat/Neck No headache 05/29/2018 Ears/Nose/Throat/Neck No nasal allergies 05/29/2018 Ears/Nose/Throat/Neck No nasal discharge 05/29/2018 Ears/Nose/Throat/Neck No sore throat 05/29/2018 Ears/Nose/Throat/Neck No sinus congestion 05/29/2018 Cardiovascular No chest pain/pressure 05/29/2018 Cardiovascular No dyspnea 05/29/2018 Cardiovascular edema 10/2017 Cardiovascular exercise intolerance 05/29/2018 Cardiovascular fatigue 1 Cardiovascular hypertension 05/29/2018 Respiratory No productive sputum 05/29/2018 Respiratory No chest congestion 05/29/2018 Respiratory No cough 10/2017 Respiratory dyspnea on exertion 05/29/2018 Respiratory No dyspnea 1 Gastrointestinal No abdominal pain 05/29/2018 Gastrointestinal No constipation 05/29/2018 Gastrointestinal No nausea 05/29/2018 Gastrointestinal No vomiting 05/29/2018 Genitourinary/Nephrology No dysuria 05/29/2018 Musculoskeletal No stiffness 05/29/2018 Musculoskeletal No swelling 05/29/2018 Musculoskeletal joint complaint 05/29/2018 Musculoskeletal No muscle weakness 05/29/2018 Musculoskeletal No myalgias 05/29/2018 Dermatologic No rash 10/2017 Dermatologic No scar 10/2017 Neurologic No dizziness 05/29/2018 Neurologic No headache 1 Neurologic No neck pain 05/29/2018 Neurologic No syncope Psychiatric anxiety 1010/2017 Psychiatric depression 1 Musculoskeletal back pain 05/29/2018 Gastrointestinal No diarrhea 05/29/2018 Constitutional No recent illness 04/25/2018 Constitutional No anorexia 04/25/2018 Constitutional No night sweats 04/25/2018 Constitutional No chills 04/25/2018 Constitutional No diaphoresis 04/25/2018 Constitutional No fatigue 04/25/2018 Constitutional No fever 04/25/2018 Constitutional No malaise 04/25/2018 Eyes No eye discharge Eyes No eye erythema Ears/Nose/Throat/Neck No dizziness 04/25/2018 Ears/Nose/Throat/Neck No headache 04/25/2018 Ears/Nose/Throat/Neck No nasal allergies 04/25/2018 Ears/Nose/Throat/Neck No nasal discharge 04/25/2018 Ears/Nose/Throat/Neck No sore throat 04/25/2018 Ears/Nose/Throat/Neck No sinus congestion 04/25/2018 Cardiovascular No chest pain/pressure 04/25/2018 Cardiovascular No dyspnea 04/25/2018 Cardiovascular edema Cardiovascular No exercise intolerance 04/25/2018 Cardiovascular No fatigue 04/25/2018 Cardiovascular hypertension 04/25/2018 Respiratory No productive sputum 04/25/2018 Respiratory No chest congestion 04/25/2018 Respiratory No cough Respiratory No dyspnea 0 04/25/2018 Gastrointestinal No abdominal pain 04/25/2018 Gastrointestinal No constipation 04/25/2018 Gastrointestinal No nausea 04/25/2018 Gastrointestinal No vomiting 04/25/2018 Genitourinary/Nephrology No dysuria 04/25/2018 Musculoskeletal No stiffness 04/25/2018 Musculoskeletal No swelling 04/25/2018 Musculoskeletal joint complaint 04/25/2018 Musculoskeletal No muscle weakness 04/25/2018 Musculoskeletal No myalgias 04/25/2018 Dermatologic No rash Dermatologic No scar Neurologic No dizziness 04/25/2018 Neurologic No headache 0 04/25/2018 Neurologic No neck pain 04/25/2018 Neurologic No syncope Psychiatric anxiety 03/29 Psychiatric depression 0 04/25/2018 Dermatologic sores 04/25 Constitutional No recent illness 02/06/2018 Constitutional No chills 02/06/2018 Constitutional No diaphoresis 02/06/2018 Constitutional No fever 02/06/2018 Eyes No eye erythema Ears/Nose/Throat/Neck No nasal discharge 02/06/2018 Ears/Nose/Throat/Neck nasal allergies 02/06/2018 Ears/Nose/Throat/Neck hearing loss 02/06/2018 Ears/Nose/Throat/Neck cerumen 02/06/2018 Cardiovascular No chest pain/pressure 02/06/2018 Respiratory No cough Neurologic No alteration of consciousness 02/06/2018 Neurologic No mental status change 02/06/2018 Constitutional No recent illness 01/23/2018 Constitutional No anorexia 01/23/2018 Constitutional No night sweats 01/23/2018 Constitutional No chills 01/23/2018 Constitutional No diaphoresis 01/23/2018 Constitutional No fatigue 01/23/2018 Constitutional No fever 01/23/2018 Constitutional insomnia 01/23/2018 Constitutional No malaise 01/23/2018 Eyes No eye discharge Eyes No eye erythema Ears/Nose/Throat/Neck No dizziness 01/23/2018 Ears/Nose/Throat/Neck No headache 01/23/2018 Ears/Nose/Throat/Neck No nasal allergies 01/23/2018 Ears/Nose/Throat/Neck No nasal discharge 01/23/2018 Ears/Nose/Throat/Neck No sore throat 01/23/2018 Ears/Nose/Throat/Neck No sinus congestion 01/23/2018 Cardiovascular No chest pain/pressure 01/23/2018 Cardiovascular No dyspnea 01/23/2018 Cardiovascular edema Cardiovascular No exercise intolerance 01/23/2018 Cardiovascular No fatigue 01/23/2018 Cardiovascular hypertension 01/23/2018 Respiratory No productive sputum 01/23/2018 Respiratory No chest congestion 01/23/2018 Respiratory No cough Respiratory dyspnea on exertion 01/23/2018 Respiratory No dyspnea 0 01/23/2018 Gastrointestinal No abdominal pain 01/23/2018 Gastrointestinal No constipation 01/23/2018 Gastrointestinal diarrhea 01/23/2018 Gastrointestinal No nausea 01/23/2018 Gastrointestinal No vomiting 01/23/2018 Genitourinary/Nephrology No dysuria 01/23/2018 Musculoskeletal No stiffness 01/23/2018 Musculoskeletal No swelling 01/23/2018 Musculoskeletal joint complaint 01/23/2018 Musculoskeletal No muscle weakness 01/23/2018 Musculoskeletal No myalgias 01/23/2018 Dermatologic No rash Dermatologic No scar Neurologic No dizziness 01/23/2018 Neurologic No headache 0 01/23/2018 Neurologic No neck pain 01/23/2018 Neurologic No syncope Psychiatric anxiety 12/27 Psychiatric depression 0 01/23/2018 Constitutional recent illness 09/26/2017 Constitutional No fatigue 09/26/2017 Psychiatric No anxiety 0 09/26/2017 Psychiatric No depression 09/26/2017 Respiratory No cough Cardiovascular fatigue 0 09/26/2017 Musculoskeletal stiffness 09/26/2017 Musculoskeletal arthralgia(s) 09/26/2017 Constitutional recent illness 09/12/2017 Constitutional No anorexia 09/12/2017 Constitutional No night sweats 09/12/2017 Constitutional No chills 09/12/2017 Constitutional No diaphoresis 09/12/2017 Constitutional No fatigue 09/12/2017 Constitutional No fever 09/12/2017 Constitutional insomnia 09/12/2017 Constitutional No malaise 09/12/2017 Eyes No eye discharge Eyes No eye erythema Ears/Nose/Throat/Neck No dizziness 09/12/2017 Ears/Nose/Throat/Neck headache 09/12/2017 Ears/Nose/Throat/Neck No nasal allergies 09/12/2017 Ears/Nose/Throat/Neck No nasal discharge 09/12/2017 Ears/Nose/Throat/Neck sore throat 09/12/2017 Ears/Nose/Throat/Neck sinus congestion 09/12/2017 Cardiovascular No chest pain/pressure 09/12/2017 Cardiovascular No dyspnea 09/12/2017 Cardiovascular edema Cardiovascular No exercise intolerance 09/12/2017 Cardiovascular No fatigue 09/12/2017 Cardiovascular hypertension 09/12/2017 Respiratory No productive sputum 09/12/2017 Respiratory No chest congestion 09/12/2017 Respiratory No cough Respiratory dyspnea on exertion 09/12/2017 Respiratory No dyspnea 0 09/12/2017 Gastrointestinal No abdominal pain 09/12/2017 Gastrointestinal No constipation 09/12/2017 Gastrointestinal No diarrhea 09/12/2017 Gastrointestinal No nausea 09/12/2017 Gastrointestinal No vomiting 09/12/2017 Genitourinary/Nephrology No dysuria 09/12/2017 Musculoskeletal stiffness 09/12/2017 Musculoskeletal No swelling 09/12/2017 Musculoskeletal joint complaint 09/12/2017 Musculoskeletal No muscle weakness 09/12/2017 Musculoskeletal No myalgias 09/12/2017 Dermatologic No rash Dermatologic No scar Neurologic No dizziness 09/12/2017 Neurologic No headache 0 09/12/2017 Neurologic No neck pain 09/12/2017 Neurologic No syncope Psychiatric anxiety 08/27 Psychiatric depression 0 09/12/2017 Ears/Nose/Throat/Neck No otalgia 09/12/2017 Neurologic No alteration of consciousness 09/12/2017 Constitutional recent illness 08/31/2017 Constitutional fatigue 0 08/31/2017 Constitutional No fever 08/31/2017 Eyes No eye discharge Eyes No eye erythema 12/2017 Ears/Nose/Throat/Neck nasal discharge 08/31/2017 Ears/Nose/Throat/Neck sinus congestion 08/31/2017 Ears/Nose/Throat/Neck sore throat 08/31/2017 Cardiovascular No chest pain/pressure 08/31/2017 Cardiovascular No dyspnea 08/31/2017 Respiratory No productive sputum 08/31/2017 Respiratory chest congestion 08/31/2017 Respiratory cough 2017 Gastrointestinal No diarrhea 08/31/2017 Gastrointestinal No nausea 08/31/2017 Gastrointestinal No vomiting 08/31/2017 Musculoskeletal No joint complaint 08/31/2017 Dermatologic No rash 12/2017 Neurologic No alteration of consciousness 08/31/2017 Constitutional No chills 08/31/2017 Constitutional No diaphoresis 08/31/2017 Ears/Nose/Throat/Neck nasal allergies 08/31/2017 Respiratory No dyspnea 0 08/31/2017 Constitutional recent illness 08/09/2017 Constitutional No anorexia 08/09/2017 Constitutional No night sweats 08/09/2017 Constitutional chills Constitutional No diaphoresis 08/09/2017 Constitutional fatigue 1 10/10/2016 Constitutional No fever 08/09/2017 Constitutional No insomnia 08/09/2017 Constitutional No weight loss 08/09/2017 Constitutional No weight gain 08/09/2017 Constitutional No malaise 08/09/2017 Eyes No eye discharge Eyes No eye erythema Ears/Nose/Throat/Neck headache 08/09/2017 Ears/Nose/Throat/Neck nasal discharge 08/09/2017 Ears/Nose/Throat/Neck No otalgia 08/09/2017 Ears/Nose/Throat/Neck sinus congestion 08/09/2017 Ears/Nose/Throat/Neck sore throat 08/09/2017 Cardiovascular No chest pain/pressure 08/09/2017 Cardiovascular No dyspnea 08/09/2017 Respiratory No productive sputum 08/09/2017 Respiratory chest congestion 08/09/2017 Respiratory cough 2016 Gastrointestinal No vomiting 08/09/2017 Gastrointestinal No nausea 08/09/2017 Gastrointestinal No diarrhea 08/09/2017 Genitourinary/Nephrology No dysuria 08/09/2017 Musculoskeletal No joint complaint 08/09/2017 Dermatologic No rash Neurologic No alteration of consciousness 08/09/2017 Constitutional No recent illness 05/07/2017 Constitutional No anorexia 05/07/2017 Constitutional No night sweats 05/07/2017 Constitutional No chills 05/07/2017 Constitutional No diaphoresis 05/07/2017 Constitutional No fatigue 05/07/2017 Constitutional No fever 05/07/2017 Constitutional insomnia 05/07/2017 Constitutional No malaise 05/07/2017 Eyes No eye discharge Eyes No eye erythema 06/2017 Ears/Nose/Throat/Neck No dizziness 05/07/2017 Ears/Nose/Throat/Neck No headache 05/07/2017 Ears/Nose/Throat/Neck No nasal allergies 05/07/2017 Ears/Nose/Throat/Neck No nasal discharge 05/07/2017 Ears/Nose/Throat/Neck No sore throat 05/07/2017 Ears/Nose/Throat/Neck No sinus congestion 05/07/2017 Cardiovascular No chest pain/pressure 05/07/2017 Cardiovascular No dyspnea 05/07/2017 Cardiovascular edema 06/2017 Cardiovascular No exercise intolerance 05/07/2017 Cardiovascular No fatigue 05/07/2017 Cardiovascular hypertension 05/07/2017 Respiratory No productive sputum 05/07/2017 Respiratory No chest congestion 05/07/2017 Respiratory No cough 06/2017 Respiratory dyspnea on exertion 05/07/2017 Respiratory No dyspnea 0 05/07/2017 Gastrointestinal No abdominal pain 05/07/2017 Gastrointestinal No constipation 05/07/2017 Gastrointestinal diarrhea 05/07/2017 Gastrointestinal No nausea 05/07/2017 Gastrointestinal No vomiting 05/07/2017 Genitourinary/Nephrology No dysuria 05/07/2017 Musculoskeletal No stiffness 05/07/2017 Musculoskeletal No swelling 05/07/2017 Musculoskeletal joint complaint 05/07/2017 Musculoskeletal No muscle weakness 05/07/2017 Musculoskeletal No myalgias 05/07/2017 Dermatologic No rash 06/2017 Dermatologic No scar 06/2017 Neurologic No dizziness 05/07/2017 Neurologic No headache 0 05/07/2017 Neurologic No neck pain 05/07/2017 Neurologic No syncope Psychiatric anxiety 04/27 Psychiatric depression 0 05/07/2017 Constitutional No recent illness 04/12/2017 Constitutional No chills 04/12/2017 Constitutional No diaphoresis 04/12/2017 Constitutional No fever 04/12/2017 Eyes No eye erythema Ears/Nose/Throat/Neck No nasal discharge 04/12/2017 Cardiovascular No chest pain/pressure 04/12/2017 Respiratory No cough Neurologic No alteration of consciousness 04/12/2017 Neurologic No mental status change 04/12/2017 Constitutional recent illness 02/05/2017 Constitutional No anorexia 02/05/2017 Constitutional No night sweats 02/05/2017 Constitutional No chills 02/05/2017 Constitutional diaphoresis 02/05/2017 Constitutional fatigue 0 02/05/2017 Constitutional No fever 02/05/2017 Constitutional No insomnia 02/05/2017 Constitutional No malaise 02/05/2017 Constitutional No weight loss 02/05/2017 Constitutional No weight gain 02/05/2017 Eyes No eye discharge Eyes No eye erythema 07/2017 Ears/Nose/Throat/Neck No dizziness 02/05/2017 Ears/Nose/Throat/Neck No headache 02/05/2017 Cardiovascular No chest pain/pressure 02/05/2017 Cardiovascular No dyspnea 02/05/2017 Cardiovascular edema 07/2017 Respiratory No productive sputum 02/05/2017 Respiratory No chest congestion 02/05/2017 Respiratory cough 2016 Gastrointestinal No abdominal pain 02/05/2017 Gastrointestinal constipation 02/05/2017 Gastrointestinal No diarrhea 02/05/2017 Gastrointestinal gastroesophageal reflux 02/05/2017 Genitourinary/Nephrology dysuria 02/05/2017 Musculoskeletal joint complaint 02/05/2017 Dermatologic No rash 07/2017 Neurologic No alteration of consciousness 02/05/2017 Psychiatric anxiety 01/25 Constitutional recent illness 02/02/2017 Constitutional No anorexia 02/02/2017 Constitutional No night sweats 02/02/2017 Constitutional No chills 02/02/2017 Constitutional diaphoresis 02/02/2017 Constitutional fatigue 0 02/02/2017 Constitutional No fever 02/02/2017 Constitutional No insomnia 02/02/2017 Constitutional No malaise 02/02/2017 Constitutional No weight loss 02/02/2017 Constitutional No weight gain 02/02/2017 Eyes No eye discharge Eyes No eye erythema 04/2017 Ears/Nose/Throat/Neck No dizziness 02/02/2017 Ears/Nose/Throat/Neck No headache 02/02/2017 Cardiovascular No chest pain/pressure 02/02/2017 Cardiovascular No dyspnea 02/02/2017 Cardiovascular edema 04/2017 Respiratory No productive sputum 02/02/2017 Respiratory No chest congestion 02/02/2017 Respiratory cough 2016 Gastrointestinal No abdominal pain 02/02/2017 Gastrointestinal constipation 02/02/2017 Gastrointestinal No diarrhea 02/02/2017 Genitourinary/Nephrology dysuria 02/02/2017 Musculoskeletal joint complaint 02/02/2017 Gastrointestinal gastroesophageal reflux 02/02/2017 Dermatologic No rash 04/2017 Neurologic No alteration of consciousness 02/02/2017 Psychiatric anxiety 0604/2017 Constitutional recent illness 01/15/2017 Constitutional No anorexia 01/15/2017 Constitutional No chills 01/15/2017 Constitutional No night sweats 01/15/2017 Constitutional No fatigue 01/15/2017 Constitutional No diaphoresis 01/15/2017 Constitutional No fever 01/15/2017 Constitutional No insomnia 01/15/2017 Constitutional No weight gain 01/15/2017 Constitutional No weight loss 01/15/2017 Constitutional No malaise 01/15/2017 Eyes No eye discharge Eyes No eye erythema Ears/Nose/Throat/Neck nasal allergies 01/15/2017 Ears/Nose/Throat/Neck nasal discharge 01/15/2017 Ears/Nose/Throat/Neck sinus congestion 01/15/2017 Ears/Nose/Throat/Neck No sore throat 01/15/2017 Cardiovascular No chest pain/pressure 01/15/2017 Cardiovascular No edema 01/15/2017 Respiratory productive sputum 01/15/2017 Respiratory chest congestion 01/15/2017 Respiratory cough 2016 Gastrointestinal No abdominal pain 01/15/2017 Musculoskeletal joint complaint 01/15/2017 Dermatologic No rash Neurologic No alteration of consciousness 01/15/2017 Constitutional No recent illness 01/04/2017 Constitutional No chills 01/04/2017 Constitutional No diaphoresis 01/04/2017 Constitutional No fatigue 01/04/2017 Constitutional No fever 01/04/2017 Constitutional insomnia 01/04/2017 Constitutional No malaise 01/04/2017 Eyes No eye discharge Eyes No eye erythema 06/2017 Ears/Nose/Throat/Neck No dizziness 01/04/2017 Ears/Nose/Throat/Neck No headache 01/04/2017 Ears/Nose/Throat/Neck No nasal allergies 01/04/2017 Ears/Nose/Throat/Neck No nasal discharge 01/04/2017 Ears/Nose/Throat/Neck No sore throat 01/04/2017 Ears/Nose/Throat/Neck No sinus congestion 01/04/2017 Cardiovascular No chest pain/pressure 01/04/2017 Cardiovascular No dyspnea 01/04/2017 Cardiovascular edema 06/2017 Cardiovascular No exercise intolerance 01/04/2017 Cardiovascular No fatigue 01/04/2017 Cardiovascular hypertension 01/04/2017 Respiratory No productive sputum 01/04/2017 Respiratory No chest congestion 01/04/2017 Respiratory No cough 06/2017 Respiratory dyspnea on exertion 01/04/2017 Respiratory No dyspnea 0 01/04/2017 Gastrointestinal No abdominal pain 01/04/2017 Gastrointestinal No constipation 01/04/2017 Gastrointestinal No nausea 01/04/2017 Gastrointestinal No vomiting 01/04/2017 Genitourinary/Nephrology No dysuria 01/04/2017 Musculoskeletal No stiffness 01/04/2017 Musculoskeletal No swelling 01/04/2017 Musculoskeletal joint complaint 01/04/2017 Musculoskeletal No muscle weakness 01/04/2017 Musculoskeletal No myalgias 01/04/2017 Dermatologic No rash 06/2017 Dermatologic No scar 06/2017 Neurologic No dizziness 01/04/2017 Neurologic No headache 0 01/04/2017 Neurologic No neck pain 01/04/2017 Neurologic No syncope Psychiatric anxiety 12/25 Psychiatric depression 0 01/04/2017 Constitutional No recent illness 09/07/2016 Constitutional No chills 09/07/2016 Constitutional No diaphoresis 09/07/2016 Constitutional No fatigue 09/07/2016 Constitutional No fever 09/07/2016 Constitutional insomnia 09/07/2016 Constitutional No malaise 09/07/2016 Eyes No eye discharge Eyes No eye erythema 07/2017 Ears/Nose/Throat/Neck No dizziness 09/07/2016 Ears/Nose/Throat/Neck No headache 09/07/2016 Ears/Nose/Throat/Neck No nasal allergies 09/07/2016 Ears/Nose/Throat/Neck No nasal discharge 09/07/2016 Ears/Nose/Throat/Neck No sore throat 09/07/2016 Ears/Nose/Throat/Neck No sinus congestion 09/07/2016 Cardiovascular No chest pain/pressure 09/07/2016 Cardiovascular No dyspnea 09/07/2016 Cardiovascular edema 07/2017 Cardiovascular No exercise intolerance 09/07/2016 Cardiovascular No fatigue 09/07/2016 Cardiovascular hypertension 09/07/2016 Respiratory No productive sputum 09/07/2016 Respiratory No chest congestion 09/07/2016 Respiratory No cough 07/2017 Respiratory dyspnea on exertion 09/07/2016 Respiratory No dyspnea 0 09/07/2016 Gastrointestinal No abdominal pain 09/07/2016 Gastrointestinal No constipation 09/07/2016 Gastrointestinal No nausea 09/07/2016 Gastrointestinal No vomiting 09/07/2016 Genitourinary/Nephrology No dysuria 09/07/2016 Musculoskeletal No stiffness 09/07/2016 Musculoskeletal No swelling 09/07/2016 Musculoskeletal joint complaint 09/07/2016 Musculoskeletal No muscle weakness 09/07/2016 Musculoskeletal No myalgias 09/07/2016 Dermatologic No rash 07/2017 Dermatologic No scar 07/2017 Neurologic No dizziness 09/07/2016 Neurologic No headache 0 09/07/2016 Neurologic No neck pain 09/07/2016 Neurologic No syncope Psychiatric anxiety 08/27 Psychiatric depression 0 09/07/2016 Constitutional No recent illness 07/06/2016 Constitutional No chills 07/06/2016 Constitutional No diaphoresis 07/06/2016 Constitutional No fatigue 07/06/2016 Constitutional No fever 07/06/2016 Constitutional insomnia 07/06/2016 Constitutional No malaise 07/06/2016 Eyes No eye discharge Eyes No eye erythema 05/2016 Ears/Nose/Throat/Neck No dizziness 07/06/2016 Ears/Nose/Throat/Neck No headache 07/06/2016 Ears/Nose/Throat/Neck No nasal allergies 07/06/2016 Ears/Nose/Throat/Neck No nasal discharge 07/06/2016 Ears/Nose/Throat/Neck No sore throat 07/06/2016 Ears/Nose/Throat/Neck No sinus congestion 07/06/2016 Cardiovascular No chest pain/pressure 07/06/2016 Cardiovascular No dyspnea 07/06/2016 Cardiovascular edema 05/2016 Cardiovascular No exercise intolerance 07/06/2016 Cardiovascular No fatigue 07/06/2016 Cardiovascular hypertension 07/06/2016 Respiratory No productive sputum 07/06/2016 Respiratory No chest congestion 07/06/2016 Respiratory No cough 05/2016 Respiratory dyspnea on exertion 07/06/2016 Respiratory No dyspnea 1 09/05/2015 Gastrointestinal No abdominal pain 07/06/2016 Gastrointestinal No constipation 07/06/2016 Gastrointestinal diarrhea 07/06/2016 Gastrointestinal No nausea 07/06/2016 Gastrointestinal No vomiting 07/06/2016 Genitourinary/Nephrology No dysuria 07/06/2016 Musculoskeletal No stiffness 07/06/2016 Musculoskeletal No swelling 07/06/2016 Musculoskeletal joint complaint 07/06/2016 Musculoskeletal No muscle weakness 07/06/2016 Musculoskeletal No myalgias 07/06/2016 Dermatologic No rash 05/2016 Dermatologic No scar 05/2016 Neurologic No dizziness 07/06/2016 Neurologic No headache 1 09/05/2015 Neurologic No neck pain 07/06/2016 Neurologic No syncope Psychiatric anxiety 06/27 Psychiatric depression 1 09/05/2015 Constitutional No recent illness 06/08/2016 Constitutional No chills 06/08/2016 Constitutional No diaphoresis 06/08/2016 Constitutional No fatigue 06/08/2016 Constitutional No fever 06/08/2016 Constitutional insomnia 06/08/2016 Constitutional No malaise 06/08/2016 Eyes No eye discharge Eyes No eye erythema Ears/Nose/Throat/Neck No dizziness 06/08/2016 Ears/Nose/Throat/Neck No headache 06/08/2016 Ears/Nose/Throat/Neck No nasal allergies 06/08/2016 Ears/Nose/Throat/Neck No nasal discharge 06/08/2016 Ears/Nose/Throat/Neck No sore throat 06/08/2016 Ears/Nose/Throat/Neck No sinus congestion 06/08/2016 Cardiovascular No chest pain/pressure 06/08/2016 Cardiovascular No dyspnea 06/08/2016 Cardiovascular edema Cardiovascular No exercise intolerance 06/08/2016 Cardiovascular No fatigue 06/08/2016 Cardiovascular hypertension 06/08/2016 Respiratory No productive sputum 06/08/2016 Respiratory No chest congestion 06/08/2016 Respiratory No cough Respiratory dyspnea on exertion 06/08/2016 Respiratory No dyspnea 1 Gastrointestinal No abdominal pain 06/08/2016 Gastrointestinal No constipation 06/08/2016 Gastrointestinal diarrhea 06/08/2016 Gastrointestinal No nausea 06/08/2016 Gastrointestinal No vomiting 06/08/2016 Genitourinary/Nephrology No dysuria 06/08/2016 Musculoskeletal No stiffness 06/08/2016 Musculoskeletal No swelling 06/08/2016 Musculoskeletal joint complaint 06/08/2016 Musculoskeletal No muscle weakness 06/08/2016 Musculoskeletal No myalgias 06/08/2016 Dermatologic No rash Dermatologic No scar Neurologic No dizziness 06/08/2016 Neurologic No headache 1 Neurologic No neck pain 06/08/2016 Neurologic No syncope Psychiatric anxiety 05/27 Psychiatric depression 1 Constitutional No recent illness 04/06/2016 Constitutional No anorexia 04/06/2016 Constitutional No night sweats 04/06/2016 Constitutional No chills 04/06/2016 Constitutional No diaphoresis 04/06/2016 Constitutional No fatigue 04/06/2016 Constitutional No fever 04/06/2016 Constitutional insomnia 04/06/2016 Constitutional No malaise 04/06/2016 Constitutional No weight loss 04/06/2016 Constitutional No weight gain 04/06/2016 Eyes No eye discharge Eyes No eye erythema 06/2016 Ears/Nose/Throat/Neck No dizziness 04/06/2016 Ears/Nose/Throat/Neck No headache 04/06/2016 Ears/Nose/Throat/Neck No nasal allergies 04/06/2016 Ears/Nose/Throat/Neck No nasal discharge 04/06/2016 Ears/Nose/Throat/Neck No sinus congestion 04/06/2016 Ears/Nose/Throat/Neck No sore throat 04/06/2016 Cardiovascular No chest pain/pressure 04/06/2016 Cardiovascular No dyspnea 04/06/2016 Cardiovascular edema 06/2016 Cardiovascular No exercise intolerance 04/06/2016 Cardiovascular No fatigue 04/06/2016 Cardiovascular hypertension 04/06/2016 Respiratory No productive sputum 04/06/2016 Respiratory No chest congestion 04/06/2016 Respiratory No cough 06/2016 Respiratory dyspnea on exertion 04/06/2016 Respiratory No dyspnea 0 04/06/2016 Gastrointestinal No abdominal pain 04/06/2016 Gastrointestinal No constipation 04/06/2016 Gastrointestinal diarrhea 04/06/2016 Gastrointestinal No nausea 04/06/2016 Gastrointestinal No vomiting 04/06/2016 Genitourinary/Nephrology No dysuria 04/06/2016 Musculoskeletal No stiffness 04/06/2016 Musculoskeletal No swelling 04/06/2016 Musculoskeletal joint complaint 04/06/2016 Musculoskeletal No muscle weakness 04/06/2016 Musculoskeletal No myalgias 04/06/2016 Dermatologic No rash 06/2016 Dermatologic No scar 06/2016 Neurologic No dizziness 04/06/2016 Neurologic No headache 0 04/06/2016 Neurologic No neck pain 04/06/2016 Neurologic No syncope Psychiatric anxiety 03/27 Psychiatric depression 0 04/06/2016 Constitutional No chills 03/09/2016 Constitutional No diaphoresis 03/09/2016 Constitutional No fatigue 03/09/2016 Constitutional No fever 03/09/2016 Eyes No eye discharge Eyes No eye erythema Ears/Nose/Throat/Neck No dizziness 03/09/2016 Ears/Nose/Throat/Neck No headache 03/09/2016 Ears/Nose/Throat/Neck No nasal allergies 03/09/2016 Ears/Nose/Throat/Neck No nasal discharge 03/09/2016 Ears/Nose/Throat/Neck No sore throat 03/09/2016 Ears/Nose/Throat/Neck No sinus congestion 03/09/2016 Cardiovascular No chest pain/pressure 03/09/2016 Cardiovascular No dyspnea 03/09/2016 Cardiovascular edema Cardiovascular No exercise intolerance 03/09/2016 Cardiovascular No fatigue 03/09/2016 Cardiovascular hypertension 03/09/2016 Respiratory No productive sputum 03/09/2016 Respiratory No chest congestion 03/09/2016 Respiratory No cough Respiratory No dyspnea 0 03/09/2016 Gastrointestinal No abdominal pain 03/09/2016 Gastrointestinal No constipation 03/09/2016 Gastrointestinal diarrhea 03/09/2016 Gastrointestinal No nausea 03/09/2016 Gastrointestinal No vomiting 03/09/2016 Musculoskeletal No stiffness 03/09/2016 Musculoskeletal No swelling 03/09/2016 Musculoskeletal No muscle weakness 03/09/2016 Musculoskeletal No myalgias 03/09/2016 Dermatologic No rash Dermatologic No scar Neurologic No dizziness 03/09/2016 Neurologic No headache 0 03/09/2016 Neurologic No neck pain 03/09/2016 Neurologic No syncope Psychiatric anxiety 02/24 Psychiatric depression 0 03/09/2016 Constitutional No recent illness 03/09/2016 Constitutional No anorexia 03/09/2016 Constitutional No night sweats 03/09/2016 Constitutional insomnia 03/09/2016 Constitutional No malaise 03/09/2016 Constitutional No weight loss 03/09/2016 Constitutional No weight gain 03/09/2016 Genitourinary/Nephrology No dysuria 03/09/2016 Respiratory dyspnea on exertion 03/09/2016 Musculoskeletal joint complaint 03/09/2016 Constitutional No chills 01/18/2016 Constitutional No diaphoresis 01/18/2016 Constitutional No fatigue 01/18/2016 Constitutional No fever 01/18/2016 Eyes No eye discharge Eyes No eye erythema Ears/Nose/Throat/Neck No dizziness 01/18/2016 Ears/Nose/Throat/Neck No headache 01/18/2016 Ears/Nose/Throat/Neck No nasal allergies 01/18/2016 Ears/Nose/Throat/Neck No nasal discharge 01/18/2016 Ears/Nose/Throat/Neck No sore throat 01/18/2016 Ears/Nose/Throat/Neck No sinus congestion 01/18/2016 Cardiovascular No chest pain/pressure 01/18/2016 Cardiovascular No dyspnea 01/18/2016 Cardiovascular edema Cardiovascular No exercise intolerance 01/18/2016 Cardiovascular No fatigue 01/18/2016 Cardiovascular hypertension 01/18/2016 Respiratory No productive sputum 01/18/2016 Respiratory No chest congestion 01/18/2016 Respiratory No cough Respiratory No dyspnea 0 01/18/2016 Gastrointestinal No abdominal pain 01/18/2016 Gastrointestinal No constipation 01/18/2016 Gastrointestinal No diarrhea 01/18/2016 Gastrointestinal No nausea 01/18/2016 Gastrointestinal No vomiting 01/18/2016 Musculoskeletal No stiffness 01/18/2016 Musculoskeletal No swelling 01/18/2016 Musculoskeletal No muscle weakness 01/18/2016 Musculoskeletal No myalgias 01/18/2016 Dermatologic No rash Dermatologic No scar Neurologic No dizziness 01/18/2016 Neurologic No headache 0 01/18/2016 Neurologic No neck pain 01/18/2016 Neurologic No syncope Psychiatric anxiety 12/26 Psychiatric depression 0 01/18/2016 Constitutional No recent illness 09/09/2015 Constitutional No anorexia 09/09/2015 Constitutional No night sweats 09/09/2015 Constitutional No chills 09/09/2015 Constitutional No diaphoresis 09/09/2015 Constitutional No fatigue 09/09/2015 Constitutional No fever 09/09/2015 Constitutional No insomnia 09/09/2015 Constitutional No malaise 09/09/2015 Constitutional No weight loss 09/09/2015 Constitutional No weight gain 09/09/2015 Constitutional No obesity 09/09/2015 Respiratory dyspnea 08/27 Respiratory dyspnea on exertion 09/09/2015 Respiratory cough 2015 Respiratory No cigarette smoking 09/09/2015 Respiratory No chest tightness 09/09/2015 Respiratory No chest congestion 09/09/2015 Respiratory No snoring 0 09/09/2015 Cardiovascular No chest pain/pressure 09/09/2015 Ears/Nose/Throat/Neck No oral pain 09/09/2015 Ears/Nose/Throat/Neck No otitis media 09/09/2015 Ears/Nose/Throat/Neck No otalgia 09/09/2015 Ears/Nose/Throat/Neck nasal allergies 09/09/2015 Ears/Nose/Throat/Neck nasal discharge 09/09/2015 Ears/Nose/Throat/Neck No sore throat 09/09/2015 Ears/Nose/Throat/Neck No postnasal drip 09/09/2015 Gastrointestinal abdominal pain 09/09/2015 Gastrointestinal constipation 09/09/2015 Gastrointestinal diarrhea 09/09/2015 Genitourinary/Nephrology No dysuria 09/09/2015 Genitourinary/Nephrology No urinary incontinence 09/09/2015 Genitourinary/Nephrology No urinary frequency 09/09/2015 Genitourinary/Nephrology No urinary urgenc y 09/09/2015 Musculoskeletal joint complaint 09/09/2015 Musculoskeletal back pain 09/09/2015 Musculoskeletal myalgias 09/09/2015 Dermatologic No rash Dermatologic No sores Psychiatric anxiety 08/27 Psychiatric No depression 09/09/2015 Ears/Nose/Throat/Neck No dizziness 09/09/2015 Ears/Nose/Throat/Neck No headache 09/09/2015 Constitutional No insomnia 12/25/2014 Cardiovascular No chest pain/pressure 12/25/2014 Cardiovascular edema 08/2014 Respiratory dyspnea on exertion 12/25/2014 Respiratory No cough 08/2014 Respiratory No chest tightness 12/25/2014 Gastrointestinal No diarrhea 12/25/2014 Gastrointestinal No abdominal pain 12/25/2014 Genitourinary/Nephrology No dysuria 12/25/2014 Constitutional No recent illness 12/25/2014 Constitutional No chills 12/25/2014 Constitutional No diaphoresis 12/25/2014 Constitutional No fatigue 12/25/2014 Constitutional No fever 12/25/2014 Eyes No eye discharge Eyes No eye erythema 08/2014 Ears/Nose/Throat/Neck No dizziness 12/25/2014 Ears/Nose/Throat/Neck No headache 12/25/2014 Ears/Nose/Throat/Neck No nasal allergies 12/25/2014 Ears/Nose/Throat/Neck No nasal discharge 12/25/2014 Ears/Nose/Throat/Neck No sore throat 12/25/2014 Ears/Nose/Throat/Neck No sinus congestion 12/25/2014 Respiratory No productive sputum 12/25/2014 Respiratory No chest congestion 12/25/2014 Respiratory No dyspnea 0 12/25/2014 Gastrointestinal No constipation 12/25/2014 Gastrointestinal No nausea 12/25/2014 Gastrointestinal No vomiting 12/25/2014 Musculoskeletal No stiffness 12/25/2014 Musculoskeletal No swelling 12/25/2014 Musculoskeletal No muscle weakness 12/25/2014 Musculoskeletal No myalgias 12/25/2014 Psychiatric anxiety 0508/2014 Psychiatric depression 0 12/25/2014 Constitutional No chills 10/13/2014 Constitutional No diaphoresis 10/13/2014 Constitutional No fatigue 10/13/2014 Constitutional No fever 10/13/2014 Eyes No eye discharge Eyes No eye erythema Ears/Nose/Throat/Neck No dizziness 10/13/2014 Ears/Nose/Throat/Neck No headache 10/13/2014 Ears/Nose/Throat/Neck No nasal allergies 10/13/2014 Ears/Nose/Throat/Neck No nasal discharge 10/13/2014 Ears/Nose/Throat/Neck No sore throat 10/13/2014 Ears/Nose/Throat/Neck No sinus congestion 10/13/2014 Respiratory No productive sputum 10/13/2014 Respiratory No chest congestion 10/13/2014 Respiratory No cough Respiratory No dyspnea 0 10/13/2014 Gastrointestinal No abdominal pain 10/13/2014 Gastrointestinal No constipation 10/13/2014 Gastrointestinal No diarrhea 10/13/2014 Gastrointestinal No nausea 10/13/2014 Gastrointestinal No vomiting 10/13/2014 Musculoskeletal No stiffness 10/13/2014 Musculoskeletal No swelling 10/13/2014 Musculoskeletal No muscle weakness 10/13/2014 Musculoskeletal No myalgias 10/13/2014 Psychiatric anxiety 09/27 Psychiatric depression 0 10/13/2014 Dermatologic No rash Dermatologic No scar Neurologic No dizziness 10/13/2014 Neurologic No headache 0 10/13/2014 Neurologic No neck pain 10/13/2014 Neurologic No syncope Cardiovascular No chest pain/pressure 10/13/2014 Cardiovascular No dyspnea 10/13/2014 Cardiovascular edema Cardiovascular No exercise intolerance 10/13/2014 Cardiovascular No fatigue 10/13/2014 Cardiovascular hypertension 10/13/2014 Constitutional No chills 08/28/2014 Constitutional No diaphoresis 08/28/2014 Constitutional No fatigue 08/28/2014 Constitutional No fever 08/28/2014 Eyes No eye discharge Eyes No eye erythema 09/2014 Ears/Nose/Throat/Neck No dizziness 08/28/2014 Ears/Nose/Throat/Neck No headache 08/28/2014 Ears/Nose/Throat/Neck No nasal allergies 08/28/2014 Ears/Nose/Throat/Neck No nasal discharge 08/28/2014 Ears/Nose/Throat/Neck No sore throat 08/28/2014 Ears/Nose/Throat/Neck No sinus congestion 08/28/2014 Respiratory No productive sputum 08/28/2014 Respiratory No chest congestion 08/28/2014 Respiratory No cough 09/2014 Respiratory No dyspnea 0 08/28/2014 Gastrointestinal No abdominal pain 08/28/2014 Gastrointestinal No constipation 08/28/2014 Gastrointestinal No diarrhea 08/28/2014 Gastrointestinal No nausea 08/28/2014 Gastrointestinal No vomiting 08/28/2014 Musculoskeletal No stiffness 08/28/2014 Musculoskeletal No swelling 08/28/2014 Musculoskeletal No muscle weakness 08/28/2014 Musculoskeletal No myalgias 08/28/2014 Psychiatric anxiety 09/2014 Psychiatric depression 0 08/28/2014 Constitutional No recent illness 08/28/2014 Constitutional recent illness 05/07/2014 Constitutional No anorexia 05/07/2014 Constitutional fatigue 0 05/07/2014 Constitutional No fever 05/07/2014 Constitutional No insomnia 05/07/2014 Constitutional chills Constitutional No diaphoresis 05/07/2014 Constitutional No night sweats 05/07/2014 Eyes No eye discharge Eyes No eye erythema 06/2014 Ears/Nose/Throat/Neck nasal allergies 05/07/2014 Ears/Nose/Throat/Neck nasal discharge 05/07/2014 Ears/Nose/Throat/Neck otalgia 05/07/2014 Ears/Nose/Throat/Neck sore throat 05/07/2014 Ears/Nose/Throat/Neck sinus congestion 05/07/2014 Ears/Nose/Throat/Neck No dizziness 05/07/2014 Ears/Nose/Throat/Neck No headache 05/07/2014 Cardiovascular No chest pain/pressure 05/07/2014 Cardiovascular edema 06/2014 Cardiovascular fatigue 0 05/07/2014 Gastrointestinal No abdominal pain 05/07/2014 Gastrointestinal No constipation 05/07/2014 Gastrointestinal No diarrhea 05/07/2014 Gastrointestinal No vomiting 05/07/2014 Gastrointestinal No nausea 05/07/2014 Genitourinary/Nephrology No dysuria 05/07/2014 Genitourinary/Nephrology urinary urgency 05/07/2014 Genitourinary/Nephrology urinary frequency 05/07/2014 Dermatologic No rash 06/2014 Neurologic No alteration of consciousness 05/07/2014 Psychiatric No depression 05/07/2014 Constitutional No chills 04/16/2014 Constitutional No diaphoresis 04/16/2014 Constitutional No fatigue 04/16/2014 Constitutional No fever 04/16/2014 Eyes No eye discharge Eyes No eye erythema Ears/Nose/Throat/Neck No dizziness 04/16/2014 Ears/Nose/Throat/Neck No headache 04/16/2014 Ears/Nose/Throat/Neck No nasal allergies 04/16/2014 Ears/Nose/Throat/Neck No nasal discharge 04/16/2014 Ears/Nose/Throat/Neck No sore throat 04/16/2014 Ears/Nose/Throat/Neck No sinus congestion 04/16/2014 Respiratory No productive sputum 04/16/2014 Respiratory No chest congestion 04/16/2014 Respiratory No cough Respiratory No dyspnea 0 04/16/2014 Gastrointestinal No abdominal pain 04/16/2014 Gastrointestinal No constipation 04/16/2014 Gastrointestinal No diarrhea 04/16/2014 Gastrointestinal No nausea 04/16/2014 Gastrointestinal No vomiting 04/16/2014 Musculoskeletal No stiffness 04/16/2014 Musculoskeletal No swelling 04/16/2014 Musculoskeletal No muscle weakness 04/16/2014 Musculoskeletal No myalgias 04/16/2014 Psychiatric anxiety 03/28 Psychiatric depression 0 04/16/2014 Constitutional No recent illness 01/27/2014 Constitutional No anorexia 01/27/2014 Constitutional No night sweats 01/27/2014 Constitutional No chills 01/27/2014 Constitutional No diaphoresis 01/27/2014 Constitutional fatigue 0 01/27/2014 Constitutional No fever 01/27/2014 Constitutional No insomnia 01/27/2014 Constitutional No malaise 01/27/2014 Constitutional No weight loss 01/27/2014 Constitutional No weight gain 01/27/2014 Constitutional No chills 01/21/2014 Constitutional No diaphoresis 01/21/2014 Constitutional No fatigue 01/21/2014 Constitutional No fever 01/21/2014 Eyes No eye discharge Eyes No eye erythema Ears/Nose/Throat/Neck No dizziness 01/21/2014 Ears/Nose/Throat/Neck No headache 01/21/2014 Ears/Nose/Throat/Neck No nasal allergies 01/21/2014 Ears/Nose/Throat/Neck No nasal discharge 01/21/2014 Ears/Nose/Throat/Neck No sore throat 01/21/2014 Ears/Nose/Throat/Neck No sinus congestion 01/21/2014 Respiratory No productive sputum 01/21/2014 Respiratory No chest congestion 01/21/2014 Respiratory No cough Respiratory No dyspnea 0 01/21/2014 Gastrointestinal No abdominal pain 01/21/2014 Gastrointestinal No constipation 01/21/2014 Gastrointestinal No diarrhea 01/21/2014 Gastrointestinal No nausea 01/21/2014 Gastrointestinal No vomiting 01/21/2014 Musculoskeletal No stiffness 01/21/2014 Musculoskeletal No swelling 01/21/2014 Musculoskeletal No muscle weakness 01/21/2014 Musculoskeletal No myalgias 01/21/2014 Psychiatric anxiety 12/26 Psychiatric depression 0 01/21/2014 Constitutional No recent illness 01/07/2014 Constitutional No anorexia 01/07/2014 Constitutional No night sweats 01/07/2014 Constitutional No chills 01/07/2014 Constitutional No diaphoresis 01/07/2014 Constitutional No fatigue 01/07/2014 Constitutional No fever 01/07/2014 Constitutional No insomnia 01/07/2014 Constitutional No malaise 01/07/2014 Eyes No eye discharge Eyes No eye erythema Cardiovascular No chest pain/pressure 01/07/2014 Respiratory No cough Gastrointestinal No abdominal pain 01/07/2014 Gastrointestinal No constipation 01/07/2014 Gastrointestinal No diarrhea 01/07/2014 Genitourinary/Nephrology No dysuria 01/07/2014 Dermatologic erythema Dermatologic No rash Constitutional recent illness 12/26/2013 Constitutional No anorexia 12/26/2013 Constitutional No night sweats 12/26/2013 Constitutional No chills 12/26/2013 Constitutional No diaphoresis 12/26/2013 Constitutional fatigue 0 12/26/2013 Constitutional No fever 12/26/2013 Constitutional No insomnia 12/26/2013 Constitutional No malaise 12/26/2013 Eyes No eye discharge Eyes No eye erythema 09/2013 Cardiovascular No chest pain/pressure 12/26/2013 Gastrointestinal No abdominal pain 12/26/2013 Gastrointestinal No constipation 12/26/2013 Gastrointestinal No diarrhea 12/26/2013 Genitourinary/Nephrology No dysuria 12/26/2013 Musculoskeletal No joint complaint 12/26/2013 Dermatologic No rash 09/2013 Dermatologic No sores Constitutional No recent illness 11/12/2013 Constitutional No anorexia 11/12/2013 Constitutional No night sweats 11/12/2013 Constitutional No chills 11/12/2013 Constitutional No diaphoresis 11/12/2013 Constitutional No fatigue 11/12/2013 Constitutional No fever 11/12/2013 Constitutional No insomnia 11/12/2013 Constitutional No malaise 11/12/2013 Eyes No eye discharge Eyes No eye erythema Cardiovascular No chest pain/pressure 11/12/2013 Respiratory No cough Gastrointestinal No abdominal pain 11/12/2013 Gastrointestinal No constipation 11/12/2013 Gastrointestinal No diarrhea 11/12/2013 Genitourinary/Nephrology No dysuria 11/12/2013 Dermatologic No rash Dermatologic erythema Constitutional recent illness 10/09/2013 Constitutional No anorexia 10/09/2013 Constitutional No night sweats 10/09/2013 Constitutional No chills 10/09/2013 Constitutional No fatigue 10/09/2013 Constitutional No diaphoresis 10/09/2013 Constitutional No fever 10/09/2013 Constitutional No insomnia 10/09/2013 Eyes No eye discharge Eyes No eye erythema Cardiovascular No chest pain/pressure 10/09/2013 Respiratory No productive sputum 10/09/2013 Respiratory No chest congestion 10/09/2013 Respiratory No cough Gastrointestinal No abdominal pain 10/09/2013 Gastrointestinal No constipation 10/09/2013 Gastrointestinal No diarrhea 10/09/2013 Gastrointestinal No vomiting 10/09/2013 Gastrointestinal No odynophagia 10/09/2013 Genitourinary/Nephrology No dysuria 10/09/2013 Dermatologic No rash Dermatologic No sores Constitutional No chills 04/03/2013 Constitutional No diaphoresis 04/03/2013 Constitutional No fatigue 04/03/2013 Constitutional No fever 04/03/2013 Eyes No eye discharge Eyes No eye erythema 03/2013 Ears/Nose/Throat/Neck No dizziness 04/03/2013 Ears/Nose/Throat/Neck No headache 04/03/2013 Ears/Nose/Throat/Neck No nasal allergies 04/03/2013 Ears/Nose/Throat/Neck No nasal discharge 04/03/2013 Ears/Nose/Throat/Neck No sore throat 04/03/2013 Ears/Nose/Throat/Neck No sinus congestion 04/03/2013 Respiratory No productive sputum 04/03/2013 Respiratory No chest congestion 04/03/2013 Respiratory No cough 03/2013 Respiratory No dyspnea 0 04/03/2013 Gastrointestinal No abdominal pain 04/03/2013 Gastrointestinal No constipation 04/03/2013 Gastrointestinal No diarrhea 04/03/2013 Gastrointestinal No nausea 04/03/2013 Gastrointestinal No vomiting 04/03/2013 Musculoskeletal No stiffness 04/03/2013 Musculoskeletal No swelling 04/03/2013 Musculoskeletal No muscle weakness 04/03/2013 Musculoskeletal No myalgias 04/03/2013 Psychiatric anxiety 08/03/2013 Psychiatric depression 0 04/03/2013 Constitutional No chills 01/06/2013 Constitutional No diaphoresis 01/06/2013 Constitutional No fatigue 01/06/2013 Constitutional No fever 01/06/2013 Eyes No eye discharge Eyes No eye erythema Ears/Nose/Throat/Neck No dizziness 01/06/2013 Ears/Nose/Throat/Neck No headache 01/06/2013 Ears/Nose/Throat/Neck No nasal allergies 01/06/2013 Ears/Nose/Throat/Neck No nasal discharge 01/06/2013 Ears/Nose/Throat/Neck No sore throat 01/06/2013 Ears/Nose/Throat/Neck No sinus congestion 01/06/2013 Respiratory No productive sputum 01/06/2013 Respiratory No chest congestion 01/06/2013 Respiratory No cough Respiratory No dyspnea 0 01/06/2013 Gastrointestinal No abdominal pain 01/06/2013 Gastrointestinal No constipation 01/06/2013 Gastrointestinal No diarrhea 01/06/2013 Gastrointestinal No nausea 01/06/2013 Gastrointestinal No vomiting 01/06/2013 Musculoskeletal No stiffness 01/06/2013 Musculoskeletal No swelling 01/06/2013 Musculoskeletal No muscle weakness 01/06/2013 Musculoskeletal No myalgias 01/06/2013 Psychiatric anxiety 12/25 Psychiatric depression 0 01/06/2013 Constitutional No recent illness 11/21/2012 Constitutional No anorexia 11/21/2012 Constitutional No night sweats 11/21/2012 Constitutional No fatigue 11/21/2012 Constitutional No chills 11/21/2012 Constitutional No diaphoresis 11/21/2012 Constitutional No fever 11/21/2012 Constitutional No insomnia 11/21/2012 Constitutional No malaise 11/21/2012 Eyes No eye discharge Eyes No eye erythema Ears/Nose/Throat/Neck No dizziness 11/21/2012 Ears/Nose/Throat/Neck hoarseness 11/21/2012 Ears/Nose/Throat/Neck No nasal discharge 11/21/2012 Ears/Nose/Throat/Neck No sore throat 11/21/2012 Ears/Nose/Throat/Neck No sinus congestion 11/21/2012 Cardiovascular No chest pain/pressure 11/21/2012 Gastrointestinal No abdominal pain 11/21/2012 Gastrointestinal No constipation 11/21/2012 Gastrointestinal No diarrhea 11/21/2012 Gastrointestinal No nausea 11/21/2012 Gastrointestinal No vomiting 11/21/2012 Genitourinary/Nephrology No dysuria 11/21/2012 Dermatologic No rash Dermatologic No sores Musculoskeletal No myalgias 10/28/2012 Psychiatric anxiety 03/11/2012 Psychiatric depression 0 10/28/2012 Constitutional No chills 10/28/2012 Constitutional No diaphoresis 10/28/2012 Constitutional No fatigue 10/28/2012 Constitutional No fever 10/28/2012 Eyes No eye discharge Eyes No eye erythema 11/2012 Ears/Nose/Throat/Neck No dizziness 10/28/2012 Ears/Nose/Throat/Neck No headache 10/28/2012 Ears/Nose/Throat/Neck No nasal allergies 10/28/2012 Ears/Nose/Throat/Neck No nasal discharge 10/28/2012 Ears/Nose/Throat/Neck No sore throat 10/28/2012 Ears/Nose/Throat/Neck No sinus congestion 10/28/2012 Respiratory No productive sputum 10/28/2012 Respiratory No chest congestion 10/28/2012 Respiratory No cough 11/2012 Respiratory No dyspnea 0 10/28/2012 Gastrointestinal No abdominal pain 10/28/2012 Gastrointestinal No constipation 10/28/2012 Gastrointestinal No diarrhea 10/28/2012 Gastrointestinal No nausea 10/28/2012 Gastrointestinal No vomiting 10/28/2012 Musculoskeletal No stiffness 10/28/2012 Musculoskeletal No swelling 10/28/2012 Musculoskeletal No muscle weakness 10/28/2012 Constitutional No chills 09/30/2012 Constitutional No diaphoresis 09/30/2012 Constitutional No fatigue 09/30/2012 Constitutional No fever 09/30/2012 Eyes No eye discharge Eyes No eye erythema 11/2012 Ears/Nose/Throat/Neck No dizziness 09/30/2012 Ears/Nose/Throat/Neck No headache 09/30/2012 Ears/Nose/Throat/Neck No nasal allergies 09/30/2012 Ears/Nose/Throat/Neck No nasal discharge 09/30/2012 Ears/Nose/Throat/Neck No sore throat 09/30/2012 Ears/Nose/Throat/Neck No sinus congestion 09/30/2012 Cardiovascular No chest pain/pressure 09/30/2012 Respiratory No productive sputum 09/30/2012 Respiratory No chest congestion 09/30/2012 Respiratory No cough 11/2012 Respiratory No dyspnea 0 09/30/2012 Gastrointestinal No abdominal pain 09/30/2012 Gastrointestinal No constipation 09/30/2012 Gastrointestinal No diarrhea 09/30/2012 Gastrointestinal No nausea 09/30/2012 Gastrointestinal No vomiting 09/30/2012 Psychiatric anxiety 11/2012 Psychiatric depression 0 09/30/2012 Musculoskeletal No stiffness 09/30/2012 Musculoskeletal No swelling 09/30/2012 Musculoskeletal No muscle weakness 09/30/2012 Musculoskeletal No myalgias 09/30/2012 Constitutional No chills 08/14/2012 Constitutional No diaphoresis 08/14/2012 Constitutional No fatigue 08/14/2012 Constitutional No fever 08/14/2012 Eyes No eye discharge Eyes No eye erythema Ears/Nose/Throat/Neck No dizziness 08/14/2012 Ears/Nose/Throat/Neck No headache 08/14/2012 Ears/Nose/Throat/Neck No nasal allergies 08/14/2012 Ears/Nose/Throat/Neck No nasal discharge 08/14/2012 Ears/Nose/Throat/Neck No sore throat 08/14/2012 Ears/Nose/Throat/Neck No sinus congestion 08/14/2012 Cardiovascular No chest pain/pressure 08/14/2012 Respiratory No productive sputum 08/14/2012 Respiratory No chest congestion 08/14/2012 Respiratory No cough Respiratory No dyspnea 1 10/15/2011 Gastrointestinal No abdominal pain 08/14/2012 Gastrointestinal No constipation 08/14/2012 Gastrointestinal No diarrhea 08/14/2012 Gastrointestinal No nausea 08/14/2012 Gastrointestinal No vomiting 08/14/2012 Psychiatric anxiety 07/27 Psychiatric depression 1 10/15/2011 Constitutional No chills 08/05/2012 Constitutional No diaphoresis 08/05/2012 Constitutional No fatigue 08/05/2012 Constitutional No fever 08/05/2012 Eyes No eye discharge Eyes No eye erythema 05/2012 Ears/Nose/Throat/Neck No dizziness 08/05/2012 Ears/Nose/Throat/Neck No headache 08/05/2012 Ears/Nose/Throat/Neck No nasal allergies 08/05/2012 Ears/Nose/Throat/Neck No nasal discharge 08/05/2012 Ears/Nose/Throat/Neck No sore throat 08/05/2012 Ears/Nose/Throat/Neck No sinus congestion 08/05/2012 Cardiovascular No chest pain/pressure 08/05/2012 Respiratory No productive sputum 08/05/2012 Respiratory No chest congestion 08/05/2012 Respiratory No cough 05/2012 Respiratory No dyspnea 1 10/06/2011 Gastrointestinal No abdominal pain 08/05/2012 Gastrointestinal No constipation 08/05/2012 Gastrointestinal No diarrhea 08/05/2012 Gastrointestinal No nausea 08/05/2012 Gastrointestinal No vomiting 08/05/2012 Psychiatric anxiety 07/27 Psychiatric depression 1 10/06/2011 Constitutional No chills 07/15/2012 Constitutional No diaphoresis 07/15/2012 Constitutional No fatigue 07/15/2012 Constitutional No fever 07/15/2012 Eyes No eye discharge Eyes No eye erythema Ears/Nose/Throat/Neck No dizziness 07/15/2012 Ears/Nose/Throat/Neck No headache 07/15/2012 Ears/Nose/Throat/Neck No nasal allergies 07/15/2012 Ears/Nose/Throat/Neck No nasal discharge 07/15/2012 Ears/Nose/Throat/Neck No sinus congestion 07/15/2012 Ears/Nose/Throat/Neck No sore throat 07/15/2012 Cardiovascular No chest pain/pressure 07/15/2012 Respiratory No productive sputum 07/15/2012 Respiratory No chest congestion 07/15/2012 Respiratory No cough Respiratory No dyspnea 1 09/14/2011 Gastrointestinal No abdominal pain 07/15/2012 Gastrointestinal No constipation 07/15/2012 Gastrointestinal No diarrhea 07/15/2012 Gastrointestinal No nausea 07/15/2012 Gastrointestinal No vomiting 07/15/2012 Psychiatric anxiety 06/27 Psychiatric depression 1 09/14/2011 Constitutional No recent illness 05/27/2012 Constitutional No chills 05/27/2012 Constitutional No fatigue 05/27/2012 Constitutional No fever 05/27/2012 Constitutional No insomnia 05/27/2012 Constitutional No malaise 05/27/2012 Cardiovascular No chest pain/pressure 05/27/2012 Cardiovascular No dyspnea 05/27/2012 Cardiovascular No edema 05/27/2012 Cardiovascular No exercise intolerance 05/27/2012 Cardiovascular No fatigue 05/27/2012 Cardiovascular No near-syncope/dizziness 05/27/2012 Respiratory No chest tightness 05/27/2012 Respiratory No cigarette smoking 05/27/2012 Respiratory No cough 08/2011 Respiratory No dyspnea 1 Respiratory No pedal edema 05/27/2012 Respiratory No snoring 1 Respiratory No wheezing 05/27/2012 Constitutional No insomnia 05/03/2012 Constitutional No recent illness 05/03/2012 Constitutional No anorexia 05/03/2012 Constitutional No night sweats 05/03/2012 Constitutional No chills 05/03/2012 Constitutional No diaphoresis 05/03/2012 Constitutional No fever 05/03/2012 Constitutional No fatigue 05/03/2012 Eyes No eye discharge Eyes No eye erythema 02/2012 Ears/Nose/Throat/Neck No dizziness 05/03/2012 Ears/Nose/Throat/Neck No nasal discharge 05/03/2012 Ears/Nose/Throat/Neck No sinus congestion 05/03/2012 Ears/Nose/Throat/Neck No sore throat 05/03/2012 Cardiovascular No chest pain/pressure 05/03/2012 Cardiovascular No dyspnea 05/03/2012 Respiratory No chest congestion 05/03/2012 Respiratory No cough 02/2012 Gastrointestinal No abdominal pain 05/03/2012 Gastrointestinal No constipation 05/03/2012 Gastrointestinal No diarrhea 05/03/2012 Gastrointestinal No nausea 05/03/2012 Gastrointestinal No vomiting 05/03/2012 Musculoskeletal No joint complaint 05/03/2012 Dermatologic No rash 02/2012 Cardiovascular No near-syncope/dizziness 04/23/2012 Respiratory No chest tightness 04/23/2012 Respiratory No cigarette smoking 04/23/2012 Respiratory No cough Respiratory No dyspnea 0 04/23/2012 Respiratory No pedal edema 04/23/2012 Respiratory No snoring 0 04/23/2012 Respiratory No wheezing 04/23/2012 Psychiatric No anxiety 0 04/23/2012 Psychiatric No depression 04/23/2012 Constitutional No recent illness 04/23/2012 Constitutional No chills 04/23/2012 Constitutional No fatigue 04/23/2012 Constitutional No fever 04/23/2012 Constitutional No insomnia 04/23/2012 Constitutional No malaise 04/23/2012 Cardiovascular No chest pain/pressure 04/23/2012 Cardiovascular No dyspnea 04/23/2012 Cardiovascular edema Cardiovascular No exercise intolerance 04/23/2012 Cardiovascular No fatigue 04/23/2012 Constitutional No recent illness 03/25/2012 Constitutional No anorexia 03/25/2012 Constitutional No night sweats 03/25/2012 Constitutional No chills 03/25/2012 Constitutional No diaphoresis 03/25/2012 Constitutional No fatigue 03/25/2012 Constitutional No fever 03/25/2012 Constitutional No insomnia 03/25/2012 Constitutional No malaise 03/25/2012 Eyes No eye discharge Eyes No eye erythema Ears/Nose/Throat/Neck No dizziness 03/25/2012 Ears/Nose/Throat/Neck No headache 03/25/2012 Ears/Nose/Throat/Neck No nasal discharge 03/25/2012 Respiratory No productive sputum 03/25/2012 Respiratory No chest congestion 03/25/2012 Respiratory No cough Gastrointestinal No vomiting 03/25/2012 Gastrointestinal No nausea 03/25/2012 Gastrointestinal No constipation 03/25/2012 Gastrointestinal No diarrhea 03/25/2012 Genitourinary/Nephrology No dysuria 03/25/2012 Constitutional No recent illness 03/12/2012 Constitutional No anorexia 03/12/2012 Constitutional No night sweats 03/12/2012 Constitutional No chills 03/12/2012 Constitutional No diaphoresis 03/12/2012 Constitutional No fatigue 03/12/2012 Constitutional No fever 03/12/2012 Constitutional No insomnia 03/12/2012 Constitutional No malaise 03/12/2012 Constitutional No obesity 03/12/2012 Eyes No eye discharge Eyes No eye erythema Ears/Nose/Throat/Neck No dizziness 03/12/2012 Ears/Nose/Throat/Neck No headache 03/12/2012 Ears/Nose/Throat/Neck No nasal allergies 03/12/2012 Ears/Nose/Throat/Neck No nasal discharge 03/12/2012 Ears/Nose/Throat/Neck No otalgia 03/12/2012 Respiratory No productive sputum 03/12/2012 Respiratory No chest congestion 03/12/2012 Respiratory No cough Gastrointestinal No abdominal pain 03/12/2012 Gastrointestinal No diarrhea 03/12/2012 Gastrointestinal No constipation 03/12/2012 Gastrointestinal gas and bloating 03/12/2012 Gastrointestinal No nausea 03/12/2012 Gastrointestinal No vomiting 03/12/2012 Genitourinary/Nephrology No dysuria 03/12/2012 Dermatologic No rash Dermatologic No sores Dermatologic mole change 03/12/2012 Neurologic No alteration of consciousness 03/12/2012 Constitutional No chills 01/23/2012 Constitutional No diaphoresis 01/23/2012 Constitutional No fatigue 01/23/2012 Constitutional No fever 01/23/2012 Eyes No eye discharge Eyes No eye erythema Ears/Nose/Throat/Neck No dizziness 01/23/2012 Ears/Nose/Throat/Neck No nasal allergies 01/23/2012 Ears/Nose/Throat/Neck No nasal discharge 01/23/2012 Ears/Nose/Throat/Neck No sinus congestion 01/23/2012 Ears/Nose/Throat/Neck No sore throat 01/23/2012 Respiratory No productive sputum 01/23/2012 Respiratory No chest congestion 01/23/2012 Respiratory No cough Gastrointestinal No abdominal pain 01/23/2012 Gastrointestinal No constipation 01/23/2012 Gastrointestinal No diarrhea 01/23/2012 Gastrointestinal No nausea 01/23/2012 Gastrointestinal No vomiting 01/23/2012 Psychiatric anxiety 12/26 Psychiatric depression 0 01/23/2012 Musculoskeletal No stiffness 01/23/2012 Neurologic No dizziness 01/23/2012 Constitutional No recent illness 01/12/2012 Constitutional No anorexia 01/12/2012 Constitutional No night sweats 01/12/2012 Constitutional No chills 01/12/2012 Constitutional No diaphoresis 01/12/2012 Constitutional No fatigue 01/12/2012 Constitutional No fever 01/12/2012 Constitutional No insomnia 01/12/2012 Cardiovascular No chest pain/pressure 01/12/2012 Cardiovascular No hypertension 01/12/2012 Cardiovascular No fatigue 01/12/2012 Ears/Nose/Throat/Neck No dizziness 12/25/2011 Ears/Nose/Throat/Neck No headache 12/25/2011 Ears/Nose/Throat/Neck No sore throat 12/25/2011 Respiratory No productive sputum 12/25/2011 Respiratory No chest congestion 12/25/2011 Respiratory No dyspnea 0 12/25/2011 Psychiatric anxiety 11/27 Psychiatric depression 0 12/25/2011 Musculoskeletal No stiffness 12/25/2011 Musculoskeletal arthralgia(s) 12/25/2011 Cardiovascular dyspnea 0 12/25/2011 Cardiovascular No edema 12/25/2011 Constitutional No chills 12/25/2011 Constitutional No fever 12/25/2011 Ears/Nose/Throat/Neck No nasal discharge 12/25/2011 Ears/Nose/Throat/Neck No nasal allergies 12/25/2011 Ears/Nose/Throat/Neck No sinus congestion 12/25/2011 Cardiovascular No chest pain/pressure 12/25/2011 Respiratory No cough Gastrointestinal No abdominal pain 12/25/2011 Gastrointestinal No constipation 12/25/2011 Gastrointestinal No diarrhea 12/25/2011 Gastrointestinal No vomiting 12/25/2011 Gastrointestinal No nausea 12/25/2011 Constitutional No diaphoresis 12/25/2011 Constitutional No fatigue 12/25/2011 Eyes No eye discharge Eyes No eye erythema Eyes No vision change Cardiovascular palpitations 12/04/2011 Genitourinary/Nephrology No dysuria 12/04/2011 Neurologic No alteration of consciousness 12/04/2011 Constitutional recent illness 12/04/2011 Ears/Nose/Throat/Neck No dizziness 12/04/2011 Ears/Nose/Throat/Neck No headache 12/04/2011 Cardiovascular No chest pain/pressure 12/04/2011 Respiratory No chest congestion 12/04/2011 Respiratory No cough 04/2012 Gastrointestinal No constipation 12/04/2011 Gastrointestinal No nausea 12/04/2011 Gastrointestinal No vomiting 12/04/2011 Constitutional No chills 12/04/2011 Constitutional No diaphoresis 12/04/2011 Constitutional No fatigue 12/04/2011 Constitutional No fever 12/04/2011 Eyes No eye discharge Eyes No eye erythema 04/2012 Ears/Nose/Throat/Neck No nasal allergies 12/04/2011 Ears/Nose/Throat/Neck No nasal discharge 12/04/2011 Ears/Nose/Throat/Neck No sinus congestion 12/04/2011 Ears/Nose/Throat/Neck No sore throat 12/04/2011 Respiratory No productive sputum 12/04/2011 Respiratory No dyspnea 0 12/04/2011 Gastrointestinal No abdominal pain 12/04/2011 Gastrointestinal No diarrhea 12/04/2011 Psychiatric anxiety 04/0 04/2012 Psychiatric depression 0 12/04/2011 Ears/Nose/Throat/Neck No headache 09/20/2011 Respiratory No dyspnea 0 09/20/2011 Constitutional No chills 09/20/2011 Constitutional No fever 09/20/2011 Ears/Nose/Throat/Neck No dizziness 09/20/2011 Cardiovascular No chest pain/pressure 09/20/2011 Gastrointestinal No nausea 09/20/2011 Gastrointestinal No vomiting 09/20/2011 Constitutional recent illness 09/20/2011 Constitutional No diaphoresis 09/20/2011 Constitutional No fatigue 09/20/2011 Eyes No eye discharge Eyes No eye erythema Ears/Nose/Throat/Neck No nasal allergies 09/20/2011 Ears/Nose/Throat/Neck No nasal discharge 09/20/2011 Ears/Nose/Throat/Neck No sinus congestion 09/20/2011 Ears/Nose/Throat/Neck No sore throat 09/20/2011 Respiratory No productive sputum 09/20/2011 Respiratory No chest congestion 09/20/2011 Respiratory No cough Gastrointestinal No abdominal pain 09/20/2011 Gastrointestinal No constipation 09/20/2011 Gastrointestinal No diarrhea 09/20/2011 Psychiatric anxiety 08/28 Psychiatric depression 0 09/20/2011 Constitutional recent illness 09/06/2011 Constitutional No chills 09/06/2011 Constitutional No diaphoresis 09/06/2011 Constitutional No fatigue 09/06/2011 Constitutional No fever 09/06/2011 Eyes No eye discharge Eyes No eye erythema 06/2012 Ears/Nose/Throat/Neck No dizziness 09/06/2011 Ears/Nose/Throat/Neck No nasal allergies 09/06/2011 Ears/Nose/Throat/Neck No nasal discharge 09/06/2011 Ears/Nose/Throat/Neck No sore throat 09/06/2011 Ears/Nose/Throat/Neck No sinus congestion 09/06/2011 Cardiovascular No chest pain/pressure 09/06/2011 Respiratory No productive sputum 09/06/2011 Respiratory No cough 06/2012 Respiratory No chest congestion 09/06/2011 Gastrointestinal No abdominal pain 09/06/2011 Gastrointestinal No nausea 09/06/2011 Gastrointestinal No vomiting 09/06/2011 Gastrointestinal No constipation 09/06/2011 Gastrointestinal No diarrhea 09/06/2011 Psychiatric anxiety 08/27 Psychiatric depression 0 09/06/2011 Constitutional No night sweats 08/30/2011 Constitutional No fatigue 08/30/2011 Constitutional No fever 08/30/2011 Dermatologic No rash 11/2011 Dermatologic No sores Psychiatric No anxiety 0 08/30/2011 Psychiatric No depression 08/30/2011 Gastrointestinal abdominal pain 08/30/2011 Gastrointestinal constipation 08/30/2011 Cardiovascular hypertension 08/30/2011 Cardiovascular fatigue 0 08/30/2011 Cardiovascular No chest pain/pressure 08/30/2011 Respiratory No cough 11/2011 Respiratory No chest congestion 08/30/2011 Respiratory No chest tightness 08/30/2011 Neurologic No dizziness 08/30/2011 Neurologic No headache 0 08/30/2011 Musculoskeletal No back pain 08/30/2011 Musculoskeletal arthralgia(s) 08/30/2011 Constitutional No recent illness 08/23/2011 Constitutional chills Constitutional fatigue 1 10/24/2010 Constitutional fever Eyes No eye discharge Eyes No eye erythema Ears/Nose/Throat/Neck No dizziness 08/23/2011 Ears/Nose/Throat/Neck headache 08/23/2011 Ears/Nose/Throat/Neck No hoarseness 08/23/2011 Ears/Nose/Throat/Neck nasal discharge 08/23/2011 Ears/Nose/Throat/Neck sinus congestion 08/23/2011 Ears/Nose/Throat/Neck No sore throat 08/23/2011 Cardiovascular No chest pain/pressure 08/23/2011 Respiratory No productive sputum 08/23/2011 Respiratory No cough Respiratory No dyspnea 1 10/24/2010 Gastrointestinal No abdominal pain 08/23/2011 Gastrointestinal No nausea 08/23/2011 Gastrointestinal No vomiting 08/23/2011 Gastrointestinal No constipation 08/23/2011 Gastrointestinal No diarrhea 08/23/2011 Genitourinary/Nephrology No dysuria 08/23/2011 Genitourinary/Nephrology urinary frequency 08/23/2011 Genitourinary/Nephrology urinary urgency 08/23/2011 Dermatologic No rash Constitutional No recent illness 08/09/2011 Constitutional No chills 08/09/2011 Constitutional No diaphoresis 08/09/2011 Constitutional No fatigue 08/09/2011 Constitutional No fever 08/09/2011 Constitutional No insomnia 08/09/2011 Eyes No eye discharge Eyes No eye erythema Ears/Nose/Throat/Neck No headache 08/09/2011 Cardiovascular No chest pain/pressure 08/09/2011 Genitourinary/Nephrology No breast c omplaint 08/09/2011 Genitourinary/Nephrology No dysuria 08/09/2011 Genitourinary/Nephrology No vaginal discharge 08/09/2011 Genitourinary/Nephrology No pelvic pain 08/09/2011 Dermatologic sores 08/09 Constitutional No chills 05/04/2011 Ears/Nose/Throat/Neck facial pain 05/04/2011 Ears/Nose/Throat/Neck No dizziness 05/04/2011 Cardiovascular No chest pain/pressure 05/04/2011 Cardiovascular No palpitations 05/04/2011 Respiratory No chest congestion 05/04/2011 Respiratory No chest tightness 05/04/2011 Respiratory No cough 03/2011 Genitourinary/Nephrology No urinary urgenc y 05/04/2011 Genitourinary/Nephrology No urinary frequency 05/04/2011 Genitourinary/Nephrology No urinary incontinence 05/04/2011 Musculoskeletal No back pain 05/04/2011 Dermatologic No rash 03/2011 Dermatologic No sores Neurologic No ataxia 03/2011 Neurologic No dizziness 05/04/2011 Neurologic No pain, back 05/04/2011 Psychiatric No anxiety 0 05/04/2011 Psychiatric No depression 05/04/2011 Musculoskeletal joint complaint 05/04/2011 Respiratory No chest tightness 04/19/2011 Respiratory cough 2010 Respiratory No daytime hypersomnolence 04/19/2011 Constitutional fever Constitutional chills Constitutional fatigue 0 04/19/2011 Constitutional No insomnia 04/19/2011 Eyes No eye discharge Eyes No eye pain 011 Eyes No vision change Ears/Nose/Throat/Neck No dental pain 04/19/2011 Ears/Nose/Throat/Neck No dizziness 04/19/2011 Ears/Nose/Throat/Neck No dysphagia 04/19/2011 Ears/Nose/Throat/Neck facial pain 04/19/2011 Ears/Nose/Throat/Neck headache 04/19/2011 Ears/Nose/Throat/Neck nasal allergies 04/19/2011 Ears/Nose/Throat/Neck nasal discharge 04/19/2011 Gastrointestinal No nausea 04/19/2011 Gastrointestinal No vomiting 04/19/2011 Genitourinary/Nephrology No dysuria 04/19/2011 Genitourinary/Nephrology No hematuria 04/19/2011 Genitourinary/Nephrology No urinary urgenc y 04/19/2011 Genitourinary/Nephrology No urinary frequency 04/19/2011 Dermatologic No rash Ears/Nose/Throat/Neck No neck pain 04/19/2011 Ears/Nose/Throat/Neck No otitis media 04/19/2011 Ears/Nose/Throat/Neck postnasal drip 04/19/2011 Ears/Nose/Throat/Neck sinus congestion 04/19/2011 Ears/Nose/Throat/Neck sore throat 04/19/2011 Ears/Nose/Throat/Neck No tinnitus 04/19/2011 Cardiovascular No chest pain/pressure 04/19/2011 Cardiovascular No paroxysmal nocturn al dyspnea 04/19/2011 Cardiovascular No syncope 04/19/2011 Cardiovascular No edema 04/19/2011 Respiratory asthma 04/19 Respiratory productive sputum 04/19/2011 Respiratory chest congestion 04/19/2011 Respiratory No dyspnea on exertion 04/19/2011 Respiratory No hemoptysis 04/19/2011 Respiratory wheezing Respiratory No pedal edema 04/19/2011 Gastrointestinal gastroesophageal reflux 04/19/2011 Gastrointestinal No diarrhea 04/19/2011 Gastrointestinal No constipation 04/19/2011 Ears/Nose/Throat/Neck hoarseness 04/19/2011 Physical Exam Exam Name System Name It em Name Status Result Effective Dates Notes Full [...] Cardiovascular extremities Edema present: severity 1+ - 4+: 2+ 05/29/2018 None Full Exam - General [...] Cardiovascular extremities Edema present: severity 1+ - 4+: 2+ 04/25/2018 None Full Exam - General [...] None Full Exam - General 1994 Eyes conjunctiva/eyelids Overall: eyelids normal 02/06/2018 None Full Exam - General 1994 Eyes conjunctiva/eyelids Overall: cornea clear 02/06/2018 None Full Exam - General 1994 Eyes conjunctiva/eyelids Overall: conjunctiva clear 02/06/2018 None Full Exam [...] Cardiovascular extremities Edema present: severity 1+ - 4+: 2+ 01/23/2018 None Full Exam - General [...] Cardiovascular extremities Edema present: severity 1+ - 4+: 2+ 09/12/2017 None Full Exam - General [...] ENT Respiratory auscultation Overall: breath sounds clear bilater ally 08/31/2017 None Full Exam - ENT Cardiovascular [...] Neurologic orientation Overall: oriented to person, place a nd time 08/31/2017 None Full Exam - ENT Ears/Nose/Throat lips/teeth/gingiva Overall: benign lips 08/31/2017 None Full Exam - ENT Ears/Nose/Throat oropharynx Posterior Pharynx: clear post nasal drainage 08/31/2017 None Full Exam - ENT Respiratory auscultation Diffuse: diminished 08/31/2017 None Full Exam - ENT Constitutional [...] ENT Respiratory auscultation Overall: breath sounds clear bilater ally 08/09/2017 None Full Exam - ENT Cardiovascular [...] Neurologic orientation Overall: oriented to person, place a nd time 08/09/2017 None Full Exam - ENT [...] Cardiovascular extremities Edema present: severity 1+ - 4+: 2+ 05/07/2017 None Full Exam - General [...] None Full Exam - General 1994 Eyes conjunctiva/eyelids Overall: conjunctiva clear 04/12/2017 None Full Exam - General 1994 Eyes conjunctiva/eyelids Overall: eyelids normal 04/12/2017 None Full Exam [...] Cardiovascular extremities Edema present: severity 1+ - 4+: 2+ 02/05/2017 None Full Exam - General [...] Cardiovascular extremities Edema present: severity 1+ - 4+: 2+ 02/02/2017 None Full Exam - General [...] ENT Respiratory auscultation Overall: breath sounds clear bilater ally 01/15/2017 None Full Exam - ENT Cardiovascular [...] Neurologic orientation Overall: oriented to person, place a nd time 01/15/2017 None Full Exam - ENT [...] Cardiovascular extremities Edema present: severity 1+ - 4+: 2+ 01/04/2017 None Full Exam - General [...] Cardiovascular extremities Edema present: severity 1+ - 4+: 2+ 09/07/2016 None Full Exam - General [...] Cardiovascular extremities Edema present: severity 1+ - 4+: 2+ 07/06/2016 None Full Exam - General [...] Cardiovascular extremities Edema present: severity 1+ - 4+: 2+ 06/08/2016 None Full Exam - General [...] Cardiovascular extremities Edema present: severity 1+ - 4+: 2+ 04/06/2016 None Full Exam - General [...] Cardiovascular extremities Edema present: severity 1+ - 4+: _ 03/09/2016 None Full Exam - General [...] Cardiovascular extremities Edema present: severity 1+ - 4+: _ 01/18/2016 None Full Exam - General [...] Abdomen abdominal exam Lower quadrant: no rebound tendernes s 09/09/2015 None Full Exam - General 1994 [...] Cardiovascular extremities Edema present: severity 1+ - 4+: 3 09/09/2015 None Full Exam - General [...] Cardiovascular extremities Edema present: severity 1+ - 4+: _ 12/25/2014 None Full Exam - General [...] Cardiovascular extremities Edema present: severity 1+ - 4+: _ 10/13/2014 None Full Exam - General [...] Cardiovascular extremities Edema present: severity 1+ - 4+: _ 08/28/2014 None Full Exam - General [...] Cardiovascular extremities Edema present: severity 1+ - 4+: _ 04/16/2014 None Full Exam - General [...] General Respiratory auscultation Overall: breath sounds clear bilater ally 01/21/2014 None Full Exam - General Respiratory [...] Cardiovascular extremities Edema present: severity 1+ - 4+: 2 01/21/2014 None Full Exam - General Abdomen abdominal exam Contour: protuberant 01/21/2014 None Full Exam - General Lymphatic neck nodes Overall: anterior cervical chain robina ign 01/21/2014 None Full Exam - General Lymphatic neck nodes Overall: posterior cervical chain be nign 01/21/2014 None Full Exam - General Musculoskeletal [...] General Psychiatric mood and affect Mood: anxious 01/21/2014 None Full Exam - General Psychiatric [...] and Head palpation Overall: no induration, no tendernes s 01/07/2014 None Full Exam - ENT Respiratory inspection Overall: no retractions 01/07/2014 None Full Exam - ENT Respiratory inspection Overall: normal rate None Full Exam - ENT Respiratory auscultation Overall: breath sounds clear bilater ally 01/07/2014 None Full Exam - ENT Cardiovascular auscultation of heart Overall: regular rate 01/07/2014 None Full Exam - ENT Cardiovascular auscultation of heart Overall: normal heart sounds 01/07/2014 None Full Exam - ENT Lymphatic palpation of lymph nodes Overall: shotty lymphadenopathy 01/07/2014 None Full Exam - ENT Neurologic orientation Overall: oriented to person, place a nd time 01/07/2014 None Full Exam - ENT [...] Ears/Nose/Throat otoscopic exam Left external auditory canal: partia l cerumen occlusion 12/26/2013 None Full Exam - ENT Ears/Nose/Throat otoscopic exam Right external auditory canal: parti al cerumen occlusion 12/26/2013 None Full Exam - ENT Face and Head inspection of face/head Overall: no scars, lesions, masses 12/26/2013 None Full Exam - ENT Respiratory inspection Overall: no retractions 12/26/2013 None Full Exam - ENT Respiratory inspection Overall: normal rate 09/2013 None Full Exam - ENT Respiratory auscultation Overall: breath sounds clear bilater ally 12/26/2013 None Full Exam - ENT Cardiovascular [...] Neurologic orientation Overall: oriented to person, place a nd time 12/26/2013 None Full Exam - ENT [...] Neurologic orientation Overall: oriented to person, place a nd time 11/12/2013 None Full Exam - ENT Lymphatic palpation of lymph nodes Overall: shotty lymphadenopathy 11/12/2013 None Full Exam - ENT Cardiovascular auscultation of heart Overall: regular rate 11/12/2013 None Full Exam - ENT Cardiovascular auscultation of heart Overall: normal heart sounds 11/12/2013 None Full Exam - ENT Respiratory auscultation Overall: breath sounds clear bilater ally 11/12/2013 None Full Exam - ENT Respiratory [...] and Head palpation Overall: no induration, no tendernes s 11/12/2013 None Full Exam - ENT Ears/Nose/Throat otoscopic exam Overall: external auditory canals normal 11/12/2013 None Full Exam - ENT Ears/Nose/Throat otoscopic exam Overall: tympanic membranes normal 11/12/2013 None Full Exam - ENT Ears/Nose/Throat oropharynx Overall: oral mucosa clear 11/12/2013 None Full Exam - ENT Neurologic orientation Overall: oriented to person, place a nd time 10/09/2013 None Full Exam - ENT [...] ENT Respiratory auscultation Overall: breath sounds clear bilater ally 10/09/2013 None Full Exam - ENT Respiratory [...] Ears/Nose/Throat otoscopic exam Left external auditory canal: partia l cerumen occlusion 10/09/2013 None Full Exam - ENT Ears/Nose/Throat otoscopic exam Right external auditory canal: parti al cerumen occlusion 10/09/2013 None Full Exam - [...] General Respiratory auscultation Overall: breath sounds clear bilater ally 04/03/2013 None Full Exam - General Respiratory [...] Cardiovascular extremities Edema present: severity 1+ - 4+: 2 04/03/2013 None Full Exam - General Abdomen abdominal exam Contour: protuberant 04/03/2013 None Full Exam - General Lymphatic neck nodes Overall: anterior cervical chain robina ign 04/03/2013 None Full Exam - General Lymphatic neck nodes Overall: posterior cervical chain be nign 04/03/2013 None Full Exam - General Musculoskeletal [...] General Psychiatric mood and affect Mood: anxious 04/03/2013 None Full Exam - General Psychiatric [...] General Respiratory auscultation Overall: breath sounds clear bilater ally 01/06/2013 None Full Exam - General Respiratory [...] Cardiovascular extremities Edema present: severity 1+ - 4+: 2 01/06/2013 None Full Exam - General Abdomen abdominal exam Contour: protuberant 01/06/2013 None Full Exam - General Lymphatic neck nodes Overall: anterior cervical chain robina ign 01/06/2013 None Full Exam - General Lymphatic neck nodes Overall: posterior cervical chain be nign 01/06/2013 None Full Exam - General Musculoskeletal [...] General Psychiatric mood and affect Mood: anxious 01/06/2013 None Full Exam - General Psychiatric mood and affect Affect: mood congruent 01/06/2013 None Full Exam - ENT Neurologic orientation Overall: oriented to person, place a nd time 11/21/2012 None Full Exam - ENT [...] ENT Respiratory auscultation Overall: breath sounds clear bilater ally 11/21/2012 None Full Exam - ENT Respiratory [...] General Respiratory auscultation Overall: breath sounds clear bilater ally 10/28/2012 None Full Exam - General Respiratory [...] Cardiovascular extremities Edema present: severity 1+ - 4+: 2 10/28/2012 None Full Exam - General Abdomen abdominal exam Contour: protuberant 10/28/2012 None Full Exam - General Lymphatic neck nodes Overall: anterior cervical chain robina ign 10/28/2012 None Full Exam - General Lymphatic neck nodes Overall: posterior cervical chain be nign 10/28/2012 None Full Exam - General Musculoskeletal [...] General Psychiatric mood and affect Mood: anxious 10/28/2012 None Full Exam - General Psychiatric [...] General Psychiatric mood and affect Mood: anxious 09/30/2012 None Full Exam - General Psychiatric [...] General Respiratory auscultation Overall: breath sounds clear bilater ally 09/30/2012 None Full Exam - General Respiratory [...] Cardiovascular extremities Edema present: severity 1+ - 4+: 2 09/30/2012 None Full Exam - General Abdomen abdominal exam Contour: protuberant 09/30/2012 None Full Exam - General Lymphatic neck nodes Overall: anterior cervical chain robina ign 09/30/2012 None Full Exam - General Lymphatic neck nodes Overall: posterior cervical chain be nign 09/30/2012 None Full Exam - General Musculoskeletal [...] General Respiratory auscultation Overall: breath sounds clear bilater ally 08/14/2012 None Full Exam - General Respiratory [...] Cardiovascular extremities Edema present: severity 1+ - 4+: 2 08/14/2012 None Full Exam - General Abdomen abdominal exam Contour: protuberant 08/14/2012 None Full Exam - General Lymphatic neck nodes Overall: anterior cervical chain robina ign 08/14/2012 None Full Exam - General Lymphatic neck nodes Overall: posterior cervical chain be nign 08/14/2012 None Full Exam - General Musculoskeletal [...] General Psychiatric mood and affect Mood: anxious 08/14/2012 None Full Exam - General Psychiatric [...] General Respiratory auscultation Overall: breath sounds clear bilater ally 08/05/2012 None Full Exam - General Respiratory [...] Cardiovascular extremities Edema present: severity 1+ - 4+: 2 08/05/2012 None Full Exam - General Abdomen abdominal exam Contour: protuberant 08/05/2012 None Full Exam - General Lymphatic neck nodes Overall: anterior cervical chain robina ign 08/05/2012 None Full Exam - General Lymphatic neck nodes Overall: posterior cervical chain be nign 08/05/2012 None Full Exam - General Musculoskeletal [...] General Psychiatric mood and affect Mood: anxious 08/05/2012 None Full Exam - General Psychiatric mood and affect Affect: mood congruent 08/05/2012 None Full Exam - General Integument inspection of skin description of wound erythematous 08/05/2012 None Full Exam - General Integument inspection of skin description of wound indurated 08/05/2012 1-2+ pitting at the later al edge of the wound on the right [...] Lymphatic neck nodes Overall: anterior cervical chain robina ign 07/15/2012 None Full Exam - General Lymphatic neck nodes Overall: posterior cervical chain be nign 07/15/2012 None Full Exam - General Musculoskeletal [...] General Psychiatric mood and affect Mood: anxious 07/15/2012 None Full Exam - General Psychiatric mood and affect Affect: mood congruent 07/15/2012 None Full Exam - General Cardiovascular extremities Edema present: pitting 07/15/2012 None Full Exam - General Cardiovascular extremities Edema present: severity 1+ - 4+: 2 07/15/2012 None Full Exam - General [...] General Respiratory auscultation Overall: breath sounds clear bilater ally 07/15/2012 None Full Exam - General Respiratory [...] 05/03/2012 None Full Exam - General Eyes conjunctiva/eyelids Overall: conjunctiva clear 05/03/2012 None Full Exam - General Eyes pupils and irises Overall: pupils equal, round, reacti ve to light and accomodation 05/03/2012 None Full Exam - General Ears/Nose/Throat otoscopic exam Overall: external auditory canals clear 05/03/2012 None Full Exam - General Ears/Nose/Throat otoscopic exam Overall: tympanic membranes clear 05/03/2012 None Full Exam - General Ears/Nose/Throat oral cavity/pharynx/larynx Oropharynx: a normal exam 05/03/2012 None Full Exam - General Respiratory auscultation Overall: breath sounds clear bilater ally 05/03/2012 None Full Exam - General Respiratory [...] Cardiovascular extremities Edema present: severity 1+ - 4+: _ 03/25/2012 None Full Exam - General [...] Cardiovascular extremities Edema present: severity 1+ - 4+: _ 03/12/2012 None Full Exam - General [...] Cardiovascular extremities Edema present: severity 1+ - 4+: 1 01/23/2012 None Full Exam - General [...] 1994 Chest/Breast breast and axillae palpation Axillae: non-tender 01/12/2012 None Full Exam - General 1994 Chest/Breast breast and axillae palpation Overall: breasts non- tender 01/12/2012 None Full Exam - General 1994 Chest/Breast breast and axillae palpation Overall: axillae non- tender 01/12/2012 None Full Exam - [...] 1994 Chest/Breast breast and axillae palpation Nipple: non-tender 01/12/2012 None Full Exam - General Respiratory respiratory effort/rhythm Overall: normal rate 12/25/2011 None Full Exam - General Ears/Nose/Throat oral cavity/pharynx/larynx Overall: oropharyngeal mucosa clear 12/25/2011 None Full Exam - General Lymphatic neck nodes Overall: anterior cervical chain robina ign 12/25/2011 None Full Exam - General Lymphatic neck nodes Overall: posterior cervical chain be nign 12/25/2011 None Full Exam - General Musculoskeletal [...] General Psychiatric mood and affect Mood: anxious 12/25/2011 None Full Exam - General Psychiatric mood and affect Affect: mood congruent 12/25/2011 None Full Exam - General Respiratory auscultation Overall: breath sounds clear bilater ally 12/25/2011 None Full Exam - General Respiratory [...] Lymphatic neck nodes Overall: anterior cervical chain robina ign 12/04/2011 None Full Exam - General Lymphatic neck nodes Overall: posterior cervical chain be nign 12/04/2011 None Full Exam - General Musculoskeletal [...] General Psychiatric mood and affect Mood: anxious 12/04/2011 None Full Exam - General Psychiatric mood and affect Affect: mood congruent 12/04/2011 None Full Exam - General Respiratory auscultation Overall: breath sounds clear bilater ally 12/04/2011 None Full Exam - General Respiratory [...] Cardiovascular extremities Edema present: severity 1+ - 4+: 2+ 12/04/2011 None Full Exam - General [...] General Respiratory auscultation Overall: breath sounds clear bilater ally 09/20/2011 None Full Exam - General Respiratory [...] Lymphatic neck nodes Overall: anterior cervical chain robina ign 09/20/2011 None Full Exam - General Lymphatic neck nodes Overall: posterior cervical chain be nign 09/20/2011 None Full Exam - General Musculoskeletal [...] General Psychiatric mood and affect Mood: anxious 09/20/2011 None Full Exam - General Psychiatric [...] 09/06/2011 None Full Exam - General Chest/Breast breast/chest inspection Overall: normal chest shape 09/06/2011 None [...] Lymphatic neck nodes Overall: anterior cervical chain robina ign 09/06/2011 None Full Exam - General Lymphatic neck nodes Overall: posterior cervical chain be nign 09/06/2011 None Full Exam - General Musculoskeletal [...] General Respiratory auscultation Overall: breath sounds clear bilater ally 09/06/2011 None Full Exam - General Respiratory [...] General Psychiatric mood and affect Mood: anxious 09/06/2011 None Full Exam - General Psychiatric mood and affect Affect: mood congruent 09/06/2011 None Full Exam - General Cardiovascular inspection of carotid pulses Overall: strong, bilaterally equal, no bruits 08/30/2011 None Full Exam - General Chest/Breast breast/chest inspection Overall: normal chest shape 08/30/2011 None [...] Lymphatic neck nodes Overall: anterior cervical chain robina ign 08/30/2011 None Full Exam - General Lymphatic neck nodes Overall: posterior cervical chain be nign 08/30/2011 None Full Exam - General Musculoskeletal [...] General Respiratory auscultation Overall: breath sounds clear bilater ally 08/30/2011 None Full Exam - General Respiratory [...] ENT Respiratory auscultation Overall: breath sounds clear bilater ally 08/23/2011 None Full Exam - ENT Cardiovascular [...] General Respiratory auscultation Overall: breath sounds clear bilater ally 05/04/2011 None Full Exam - General Respiratory [...] Lymphatic neck nodes Overall: anterior cervical chain robina ign 05/04/2011 None Full Exam - General Lymphatic neck nodes Overall: posterior cervical chain be nign 05/04/2011 None Full Exam - General Musculoskeletal [...] pupils and irises Overall: pupils equal, round, reacti ve to light and accomodation 05/04/2011 None Full [...] 05/04/2011 None Full Exam - General Chest/Breast breast/chest inspection Overall: normal chest shape 05/04/2011 None [...] pupils and irises Overall: pupils equal, round, reacti ve to light and accomodation 04/19/2011 None Full Exam - General Ears/Nose/Throat otoscopic exam Left tympanic membrane: air- fluid level 04/19/2011 None Full Exam - General Ears/Nose/Throat otoscopic exam Right tympanic membrane: air- fluid level 04/19/2011 None Full Exam - General [...] general appearance Overall: well nourished 04/19/2011 None Exam Name System Name It em Name Status Result Effective Dates Notes Full [...] Cardiovascular extremities Edema present: severity 1+ - 4+: 2+ 09/03/2018 None Full Exam - General [...] Cardiovascular extremities Edema present: severity 1+ - 4+: 2+ 05/29/2018 None Full Exam - General [...] Cardiovascular extremities Edema present: severity 1+ - 4+: 2+ 04/25/2018 None Full Exam - General [...] None Full Exam - General 1994 Eyes conjunctiva/eyelids Overall: eyelids normal 02/06/2018 None Full Exam - General 1994 Eyes conjunctiva/eyelids Overall: cornea clear 02/06/2018 None Full Exam - General 1994 Eyes conjunctiva/eyelids Overall: conjunctiva clear 02/06/2018 None Full Exam [...] Cardiovascular extremities Edema present: severity 1+ - 4+: 2+ 01/23/2018 None Full Exam - General [...] Cardiovascular extremities Edema present: severity 1+ - 4+: 2+ 09/12/2017 None Full Exam - General [...] ENT Respiratory auscultation Overall: breath sounds clear bilater ally 08/31/2017 None Full Exam - ENT Cardiovascular [...] Neurologic orientation Overall: oriented to person, place a nd time 08/31/2017 None Full Exam - ENT Ears/Nose/Throat lips/teeth/gingiva Overall: benign lips 08/31/2017 None Full Exam - ENT Ears/Nose/Throat oropharynx Posterior Pharynx: clear post nasal drainage 08/31/2017 None Full Exam - ENT Respiratory auscultation Diffuse: diminished 08/31/2017 None Full Exam - ENT Constitutional [...] ENT Respiratory auscultation Overall: breath sounds clear bilater ally 08/09/2017 None Full Exam - ENT Cardiovascular [...] Neurologic orientation Overall: oriented to person, place a nd time 08/09/2017 None Full Exam - ENT [...] Cardiovascular extremities Edema present: severity 1+ - 4+: 2+ 05/07/2017 None Full Exam - General [...] None Full Exam - General 1994 Eyes conjunctiva/eyelids Overall: conjunctiva clear 04/12/2017 None Full Exam - General 1994 Eyes conjunctiva/eyelids Overall: eyelids normal 04/12/2017 None Full Exam [...] Cardiovascular extremities Edema present: severity 1+ - 4+: 2+ 02/05/2017 None Full Exam - General [...] Cardiovascular extremities Edema present: severity 1+ - 4+: 2+ 02/02/2017 None Full Exam - General [...] ENT Respiratory auscultation Overall: breath sounds clear bilater ally 01/15/2017 None Full Exam - ENT Cardiovascular [...] Neurologic orientation Overall: oriented to person, place a nd time 01/15/2017 None Full Exam - ENT [...] Cardiovascular extremities Edema present: severity 1+ - 4+: 2+ 01/04/2017 None Full Exam - General [...] Cardiovascular extremities Edema present: severity 1+ - 4+: 2+ 09/07/2016 None Full Exam - General [...] Cardiovascular extremities Edema present: severity 1+ - 4+: 2+ 07/06/2016 None Full Exam - General [...] Cardiovascular extremities Edema present: severity 1+ - 4+: 2+ 06/08/2016 None Full Exam - General [...] Cardiovascular extremities Edema present: severity 1+ - 4+: 2+ 04/06/2016 None Full Exam - General [...] Cardiovascular extremities Edema present: severity 1+ - 4+: _ 03/09/2016 None Full Exam - General [...] Cardiovascular extremities Edema present: severity 1+ - 4+: _ 01/18/2016 None Full Exam - General [...] Abdomen abdominal exam Lower quadrant: no rebound tendernes s 09/09/2015 None Full Exam - General 1994 [...] Cardiovascular extremities Edema present: severity 1+ - 4+: 3 09/09/2015 None Full Exam - General [...] Cardiovascular extremities Edema present: severity 1+ - 4+: _ 12/25/2014 None Full Exam - General [...] Cardiovascular extremities Edema present: severity 1+ - 4+: _ 10/13/2014 None Full Exam - General [...] Cardiovascular extremities Edema present: severity 1+ - 4+: _ 08/28/2014 None Full Exam - General [...] Cardiovascular extremities Edema present: severity 1+ - 4+: _ 04/16/2014 None Full Exam - General [...] General Respiratory auscultation Overall: breath sounds clear bilater ally 01/21/2014 None Full Exam - General Respiratory [...] Cardiovascular extremities Edema present: severity 1+ - 4+: 2 01/21/2014 None Full Exam - General Abdomen abdominal exam Contour: protuberant 01/21/2014 None Full Exam - General Lymphatic neck nodes Overall: anterior cervical chain robina ign 01/21/2014 None Full Exam - General Lymphatic neck nodes Overall: posterior cervical chain be nign 01/21/2014 None Full Exam - General Musculoskeletal [...] General Psychiatric mood and affect Mood: anxious 01/21/2014 None Full Exam - General Psychiatric [...] and Head palpation Overall: no induration, no tendernes s 01/07/2014 None Full Exam - ENT Respiratory inspection Overall: no retractions 01/07/2014 None Full Exam - ENT Respiratory inspection Overall: normal rate None Full Exam - ENT Respiratory auscultation Overall: breath sounds clear bilater ally 01/07/2014 None Full Exam - ENT Cardiovascular auscultation of heart Overall: regular rate 01/07/2014 None Full Exam - ENT Cardiovascular auscultation of heart Overall: normal heart sounds 01/07/2014 None Full Exam - ENT Lymphatic palpation of lymph nodes Overall: shotty lymphadenopathy 01/07/2014 None Full Exam - ENT Neurologic orientation Overall: oriented to person, place a nd time 01/07/2014 None Full Exam - ENT [...] Ears/Nose/Throat otoscopic exam Left external auditory canal: partia l cerumen occlusion 12/26/2013 None Full Exam - ENT Ears/Nose/Throat otoscopic exam Right external auditory canal: parti al cerumen occlusion 12/26/2013 None Full Exam - ENT Face and Head inspection of face/head Overall: no scars, lesions, masses 12/26/2013 None Full Exam - ENT Respiratory inspection Overall: no retractions 12/26/2013 None Full Exam - ENT Respiratory inspection Overall: normal rate 09/2013 None Full Exam - ENT Respiratory auscultation Overall: breath sounds clear bilater ally 12/26/2013 None Full Exam - ENT Cardiovascular [...] Neurologic orientation Overall: oriented to person, place a nd time 12/26/2013 None Full Exam - ENT [...] Neurologic orientation Overall: oriented to person, place a nd time 11/12/2013 None Full Exam - ENT Lymphatic palpation of lymph nodes Overall: shotty lymphadenopathy 11/12/2013 None Full Exam - ENT Cardiovascular auscultation of heart Overall: regular rate 11/12/2013 None Full Exam - ENT Cardiovascular auscultation of heart Overall: normal heart sounds 11/12/2013 None Full Exam - ENT Respiratory auscultation Overall: breath sounds clear bilater ally 11/12/2013 None Full Exam - ENT Respiratory [...] and Head palpation Overall: no induration, no tendernes s 11/12/2013 None Full Exam - ENT Ears/Nose/Throat otoscopic exam Overall: external auditory canals normal 11/12/2013 None Full Exam - ENT Ears/Nose/Throat otoscopic exam Overall: tympanic membranes normal 11/12/2013 None Full Exam - ENT Ears/Nose/Throat oropharynx Overall: oral mucosa clear 11/12/2013 None Full Exam - ENT Neurologic orientation Overall: oriented to person, place a nd time 10/09/2013 None Full Exam - ENT [...] ENT Respiratory auscultation Overall: breath sounds clear bilater ally 10/09/2013 None Full Exam - ENT Respiratory [...] Ears/Nose/Throat otoscopic exam Left external auditory canal: partia l cerumen occlusion 10/09/2013 None Full Exam - ENT Ears/Nose/Throat otoscopic exam Right external auditory canal: parti al cerumen occlusion 10/09/2013 None Full Exam - [...] General Respiratory auscultation Overall: breath sounds clear bilater ally 04/03/2013 None Full Exam - General Respiratory [...] Cardiovascular extremities Edema present: severity 1+ - 4+: 2 04/03/2013 None Full Exam - General Abdomen abdominal exam Contour: protuberant 04/03/2013 None Full Exam - General Lymphatic neck nodes Overall: anterior cervical chain robina ign 04/03/2013 None Full Exam - General Lymphatic neck nodes Overall: posterior cervical chain be nign 04/03/2013 None Full Exam - General Musculoskeletal [...] General Psychiatric mood and affect Mood: anxious 04/03/2013 None Full Exam - General Psychiatric [...] General Respiratory auscultation Overall: breath sounds clear bilater ally 01/06/2013 None Full Exam - General Respiratory [...] Cardiovascular extremities Edema present: severity 1+ - 4+: 2 01/06/2013 None Full Exam - General Abdomen abdominal exam Contour: protuberant 01/06/2013 None Full Exam - General Lymphatic neck nodes Overall: anterior cervical chain robina ign 01/06/2013 None Full Exam - General Lymphatic neck nodes Overall: posterior cervical chain be nign 01/06/2013 None Full Exam - General Musculoskeletal [...] General Psychiatric mood and affect Mood: anxious 01/06/2013 None Full Exam - General Psychiatric mood and affect Affect: mood congruent 01/06/2013 None Full Exam - ENT Neurologic orientation Overall: oriented to person, place a nd time 11/21/2012 None Full Exam - ENT [...] ENT Respiratory auscultation Overall: breath sounds clear bilater ally 11/21/2012 None Full Exam - ENT Respiratory [...] General Respiratory auscultation Overall: breath sounds clear bilater ally 10/28/2012 None Full Exam - General Respiratory [...] Cardiovascular extremities Edema present: severity 1+ - 4+: 2 10/28/2012 None Full Exam - General Abdomen abdominal exam Contour: protuberant 10/28/2012 None Full Exam - General Lymphatic neck nodes Overall: anterior cervical chain robina ign 10/28/2012 None Full Exam - General Lymphatic neck nodes Overall: posterior cervical chain be nign 10/28/2012 None Full Exam - General Musculoskeletal [...] General Psychiatric mood and affect Mood: anxious 10/28/2012 None Full Exam - General Psychiatric [...] General Psychiatric mood and affect Mood: anxious 09/30/2012 None Full Exam - General Psychiatric [...] General Respiratory auscultation Overall: breath sounds clear bilater ally 09/30/2012 None Full Exam - General Respiratory [...] Cardiovascular extremities Edema present: severity 1+ - 4+: 2 09/30/2012 None Full Exam - General Abdomen abdominal exam Contour: protuberant 09/30/2012 None Full Exam - General Lymphatic neck nodes Overall: anterior cervical chain robina ign 09/30/2012 None Full Exam - General Lymphatic neck nodes Overall: posterior cervical chain be nign 09/30/2012 None Full Exam - General Musculoskeletal [...] General Respiratory auscultation Overall: breath sounds clear bilater ally 08/14/2012 None Full Exam - General Respiratory [...] Cardiovascular extremities Edema present: severity 1+ - 4+: 2 08/14/2012 None Full Exam - General Abdomen abdominal exam Contour: protuberant 08/14/2012 None Full Exam - General Lymphatic neck nodes Overall: anterior cervical chain robina ign 08/14/2012 None Full Exam - General Lymphatic neck nodes Overall: posterior cervical chain be nign 08/14/2012 None Full Exam - General Musculoskeletal [...] General Psychiatric mood and affect Mood: anxious 08/14/2012 None Full Exam - General Psychiatric [...] General Respiratory auscultation Overall: breath sounds clear bilater ally 08/05/2012 None Full Exam - General Respiratory [...] Cardiovascular extremities Edema present: severity 1+ - 4+: 2 08/05/2012 None Full Exam - General Abdomen abdominal exam Contour: protuberant 08/05/2012 None Full Exam - General Lymphatic neck nodes Overall: anterior cervical chain robina ign 08/05/2012 None Full Exam - General Lymphatic neck nodes Overall: posterior cervical chain be nign 08/05/2012 None Full Exam - General Musculoskeletal [...] General Psychiatric mood and affect Mood: anxious 08/05/2012 None Full Exam - General Psychiatric mood and affect Affect: mood congruent 08/05/2012 None Full Exam - General Integument inspection of skin description of wound erythematous 08/05/2012 None Full Exam - General Integument inspection of skin description of wound indurated 08/05/2012 1-2+ pitting at the later al edge of the wound on the right [...] Lymphatic neck nodes Overall: anterior cervical chain robina ign 07/15/2012 None Full Exam - General Lymphatic neck nodes Overall: posterior cervical chain be nign 07/15/2012 None Full Exam - General Musculoskeletal [...] General Psychiatric mood and affect Mood: anxious 07/15/2012 None Full Exam - General Psychiatric mood and affect Affect: mood congruent 07/15/2012 None Full Exam - General Cardiovascular extremities Edema present: pitting 07/15/2012 None Full Exam - General Cardiovascular extremities Edema present: severity 1+ - 4+: 2 07/15/2012 None Full Exam - General [...] General Respiratory auscultation Overall: breath sounds clear bilater ally 07/15/2012 None Full Exam - General Respiratory [...] murmurs 05/27/2012 None Full Exam - General 1995 Cardiovascular extremities Overall: no clubbing 05/27/2012 None [...] 05/03/2012 None Full Exam - General Eyes conjunctiva/eyelids Overall: conjunctiva clear 05/03/2012 None Full Exam - General Eyes pupils and irises Overall: pupils equal, round, reacti ve to light and accomodation 05/03/2012 None Full Exam - General Ears/Nose/Throat otoscopic exam Overall: external auditory canals clear 05/03/2012 None Full Exam - General Ears/Nose/Throat otoscopic exam Overall: tympanic membranes clear 05/03/2012 None Full Exam - General Ears/Nose/Throat oral cavity/pharynx/larynx Oropharynx: a normal exam 05/03/2012 None Full Exam - General Respiratory auscultation Overall: breath sounds clear bilater ally 05/03/2012 None Full Exam - General Respiratory [...] Cardiovascular extremities Edema present: severity 1+ - 4+: _ 03/25/2012 None Full Exam - General [...] Cardiovascular extremities Edema present: severity 1+ - 4+: _ 03/12/2012 None Full Exam - General [...] Cardiovascular extremities Edema present: severity 1+ - 4+: 1 01/23/2012 None Full Exam - General [...] 1994 Chest/Breast breast and axillae palpation Axillae: non-tender 01/12/2012 None Full Exam - General 1994 Chest/Breast breast and axillae palpation Overall: breasts non- tender 01/12/2012 None Full Exam - General 1994 Chest/Breast breast and axillae palpation Overall: axillae non- tender 01/12/2012 None Full Exam - [...] 1994 Chest/Breast breast and axillae palpation Nipple: non-tender 01/12/2012 None Full Exam - General Respiratory respiratory effort/rhythm Overall: normal rate 12/25/2011 None Full Exam - General Ears/Nose/Throat oral cavity/pharynx/larynx Overall: oropharyngeal mucosa clear 12/25/2011 None Full Exam - General Lymphatic neck nodes Overall: anterior cervical chain robina ign 12/25/2011 None Full Exam - General Lymphatic neck nodes Overall: posterior cervical chain be nign 12/25/2011 None Full Exam - General Musculoskeletal [...] General Psychiatric mood and affect Mood: anxious 12/25/2011 None Full Exam - General Psychiatric mood and affect Affect: mood congruent 12/25/2011 None Full Exam - General Respiratory auscultation Overall: breath sounds clear bilater ally 12/25/2011 None Full Exam - General Respiratory [...] Lymphatic neck nodes Overall: anterior cervical chain robina ign 12/04/2011 None Full Exam - General Lymphatic neck nodes Overall: posterior cervical chain be nign 12/04/2011 None Full Exam - General Musculoskeletal [...] General Psychiatric mood and affect Mood: anxious 12/04/2011 None Full Exam - General Psychiatric mood and affect Affect: mood congruent 12/04/2011 None Full Exam - General Respiratory auscultation Overall: breath sounds clear bilater ally 12/04/2011 None Full Exam - General Respiratory [...] Cardiovascular extremities Edema present: severity 1+ - 4+: 2+ 12/04/2011 None Full Exam - General [...] General Respiratory auscultation Overall: breath sounds clear bilater ally 09/20/2011 None Full Exam - General Respiratory [...] Lymphatic neck nodes Overall: anterior cervical chain robina ign 09/20/2011 None Full Exam - General Lymphatic neck nodes Overall: posterior cervical chain be nign 09/20/2011 None Full Exam - General Musculoskeletal [...] General Psychiatric mood and affect Mood: anxious 09/20/2011 None Full Exam - General Psychiatric [...] 09/06/2011 None Full Exam - General Chest/Breast breast/chest inspection Overall: normal chest shape 09/06/2011 None [...] Lymphatic neck nodes Overall: anterior cervical chain robina ign 09/06/2011 None Full Exam - General Lymphatic neck nodes Overall: posterior cervical chain be nign 09/06/2011 None Full Exam - General Musculoskeletal [...] General Respiratory auscultation Overall: breath sounds clear bilater ally 09/06/2011 None Full Exam - General Respiratory [...] General Psychiatric mood and affect Mood: anxious 09/06/2011 None Full Exam - General Psychiatric mood and affect Affect: mood congruent 09/06/2011 None Full Exam - General Cardiovascular inspection of carotid pulses Overall: strong, bilaterally equal, no bruits 08/30/2011 None Full Exam - General Chest/Breast breast/chest inspection Overall: normal chest shape 08/30/2011 None [...] Lymphatic neck nodes Overall: anterior cervical chain robina ign 08/30/2011 None Full Exam - General Lymphatic neck nodes Overall: posterior cervical chain be nign 08/30/2011 None Full Exam - General Musculoskeletal [...] General Respiratory auscultation Overall: breath sounds clear bilater ally 08/30/2011 None Full Exam - General Respiratory [...] ENT Respiratory auscultation Overall: breath sounds clear bilater ally 08/23/2011 None Full Exam - ENT Cardiovascular [...] General Respiratory auscultation Overall: breath sounds clear bilater ally 05/04/2011 None Full Exam - General Respiratory [...] Lymphatic neck nodes Overall: anterior cervical chain robina ign 05/04/2011 None Full Exam - General Lymphatic neck nodes Overall: posterior cervical chain be nign 05/04/2011 None Full Exam - General Musculoskeletal [...] pupils and irises Overall: pupils equal, round, reacti ve to light and accomodation 05/04/2011 None Full [...] 05/04/2011 None Full Exam - General Chest/Breast breast/chest inspection Overall: normal chest shape 05/04/2011 None [...] pupils and irises Overall: pupils equal, round, reacti ve to light and accomodation 04/19/2011 None Full Exam - General Ears/Nose/Throat otoscopic exam Left tympanic membrane: air- fluid level 04/19/2011 None Full Exam - General Ears/Nose/Throat otoscopic exam Right tympanic membrane: air- fluid level 04/19/2011 None Full Exam - General [...] general appearance Overall: well nourished 04/19/2011 None Exam Name System Name It em Name Status Result Effective Dates Notes Full [...] Cardiovascular extremities Edema present: severity 1+ - 4+: 2+ 02/02/2017 None Full Exam - General [...] ENT Respiratory auscultation Overall: breath sounds clear bilater ally 01/15/2017 None Full Exam - ENT Cardiovascular [...] Neurologic orientation Overall: oriented to person, place a nd time 01/15/2017 None Full Exam - ENT [...] Cardiovascular extremities Edema present: severity 1+ - 4+: 2+ 01/04/2017 None Full Exam - General [...] Cardiovascular extremities Edema present: severity 1+ - 4+: 2+ 09/07/2016 None Full Exam - General [...] Cardiovascular extremities Edema present: severity 1+ - 4+: 2+ 07/06/2016 None Full Exam - General [...] Cardiovascular extremities Edema present: severity 1+ - 4+: 2+ 06/08/2016 None Full Exam - General [...] Cardiovascular extremities Edema present: severity 1+ - 4+: 2+ 04/06/2016 None Full Exam - General [...] Cardiovascular extremities Edema present: severity 1+ - 4+: _ 03/09/2016 None Full Exam - General [...] Cardiovascular extremities Edema present: severity 1+ - 4+: _ 01/18/2016 None Full Exam - General [...] Abdomen abdominal exam Lower quadrant: no rebound tendernes s 09/09/2015 None Full Exam - General 1994 [...] Cardiovascular extremities Edema present: severity 1+ - 4+: 3 09/09/2015 None Full Exam - General [...] Cardiovascular extremities Edema present: severity 1+ - 4+: _ 12/25/2014 None Full Exam - General [...] Cardiovascular extremities Edema present: severity 1+ - 4+: _ 10/13/2014 None Full Exam - General [...] Cardiovascular extremities Edema present: severity 1+ - 4+: _ 08/28/2014 None Full Exam - General [...] Cardiovascular extremities Edema present: severity 1+ - 4+: _ 04/16/2014 None Full Exam - General [...] General Respiratory auscultation Overall: breath sounds clear bilater ally 01/21/2014 None Full Exam - General Respiratory [...] Cardiovascular extremities Edema present: severity 1+ - 4+: 2 01/21/2014 None Full Exam - General Abdomen abdominal exam Contour: protuberant 01/21/2014 None Full Exam - General Lymphatic neck nodes Overall: anterior cervical chain robina ign 01/21/2014 None Full Exam - General Lymphatic neck nodes Overall: posterior cervical chain be nign 01/21/2014 None Full Exam - General Musculoskeletal [...] General Psychiatric mood and affect Mood: anxious 01/21/2014 None Full Exam - General Psychiatric [...] and Head palpation Overall: no induration, no tendernes s 01/07/2014 None Full Exam - ENT Respiratory inspection Overall: no retractions 01/07/2014 None Full Exam - ENT Respiratory inspection Overall: normal rate None Full Exam - ENT Respiratory auscultation Overall: breath sounds clear bilater ally 01/07/2014 None Full Exam - ENT Cardiovascular auscultation of heart Overall: regular rate 01/07/2014 None Full Exam - ENT Cardiovascular auscultation of heart Overall: normal heart sounds 01/07/2014 None Full Exam - ENT Lymphatic palpation of lymph nodes Overall: shotty lymphadenopathy 01/07/2014 None Full Exam - ENT Neurologic orientation Overall: oriented to person, place a nd time 01/07/2014 None Full Exam - ENT [...] Ears/Nose/Throat otoscopic exam Left external auditory canal: partia l cerumen occlusion 12/26/2013 None Full Exam - ENT Ears/Nose/Throat otoscopic exam Right external auditory canal: parti al cerumen occlusion 12/26/2013 None Full Exam - ENT Face and Head inspection of face/head Overall: no scars, lesions, masses 12/26/2013 None Full Exam - ENT Respiratory inspection Overall: no retractions 12/26/2013 None Full Exam - ENT Respiratory inspection Overall: normal rate 09/2013 None Full Exam - ENT Respiratory auscultation Overall: breath sounds clear bilater ally 12/26/2013 None Full Exam - ENT Cardiovascular [...] Neurologic orientation Overall: oriented to person, place a nd time 12/26/2013 None Full Exam - ENT [...] Neurologic orientation Overall: oriented to person, place a nd time 11/12/2013 None Full Exam - ENT Lymphatic palpation of lymph nodes Overall: shotty lymphadenopathy 11/12/2013 None Full Exam - ENT Cardiovascular auscultation of heart Overall: regular rate 11/12/2013 None Full Exam - ENT Cardiovascular auscultation of heart Overall: normal heart sounds 11/12/2013 None Full Exam - ENT Respiratory auscultation Overall: breath sounds clear bilater ally 11/12/2013 None Full Exam - ENT Respiratory [...] and Head palpation Overall: no induration, no tendernes s 11/12/2013 None Full Exam - ENT Ears/Nose/Throat otoscopic exam Overall: external auditory canals normal 11/12/2013 None Full Exam - ENT Ears/Nose/Throat otoscopic exam Overall: tympanic membranes normal 11/12/2013 None Full Exam - ENT Ears/Nose/Throat oropharynx Overall: oral mucosa clear 11/12/2013 None Full Exam - ENT Neurologic orientation Overall: oriented to person, place a nd time 10/09/2013 None Full Exam - ENT [...] ENT Respiratory auscultation Overall: breath sounds clear bilater ally 10/09/2013 None Full Exam - ENT Respiratory [...] Ears/Nose/Throat otoscopic exam Left external auditory canal: partia l cerumen occlusion 10/09/2013 None Full Exam - ENT Ears/Nose/Throat otoscopic exam Right external auditory canal: parti al cerumen occlusion 10/09/2013 None Full Exam - [...] General Respiratory auscultation Overall: breath sounds clear bilater ally 04/03/2013 None Full Exam - General Respiratory [...] Cardiovascular extremities Edema present: severity 1+ - 4+: 2 04/03/2013 None Full Exam - General Abdomen abdominal exam Contour: protuberant 04/03/2013 None Full Exam - General Lymphatic neck nodes Overall: anterior cervical chain robina ign 04/03/2013 None Full Exam - General Lymphatic neck nodes Overall: posterior cervical chain be nign 04/03/2013 None Full Exam - General Musculoskeletal [...] General Psychiatric mood and affect Mood: anxious 04/03/2013 None Full Exam - General Psychiatric [...] General Respiratory auscultation Overall: breath sounds clear bilater ally 01/06/2013 None Full Exam - General Respiratory [...] Cardiovascular extremities Edema present: severity 1+ - 4+: 2 01/06/2013 None Full Exam - General Abdomen abdominal exam Contour: protuberant 01/06/2013 None Full Exam - General Lymphatic neck nodes Overall: anterior cervical chain robina ign 01/06/2013 None Full Exam - General Lymphatic neck nodes Overall: posterior cervical chain be nign 01/06/2013 None Full Exam - General Musculoskeletal [...] General Psychiatric mood and affect Mood: anxious 01/06/2013 None Full Exam - General Psychiatric mood and affect Affect: mood congruent 01/06/2013 None Full Exam - ENT Neurologic orientation Overall: oriented to person, place a nd time 11/21/2012 None Full Exam - ENT [...] ENT Respiratory auscultation Overall: breath sounds clear bilater ally 11/21/2012 None Full Exam - ENT Respiratory [...] General Respiratory auscultation Overall: breath sounds clear bilater ally 10/28/2012 None Full Exam - General Respiratory [...] Cardiovascular extremities Edema present: severity 1+ - 4+: 2 10/28/2012 None Full Exam - General Abdomen abdominal exam Contour: protuberant 10/28/2012 None Full Exam - General Lymphatic neck nodes Overall: anterior cervical chain robina ign 10/28/2012 None Full Exam - General Lymphatic neck nodes Overall: posterior cervical chain be nign 10/28/2012 None Full Exam - General Musculoskeletal [...] General Psychiatric mood and affect Mood: anxious 10/28/2012 None Full Exam - General Psychiatric [...] General Psychiatric mood and affect Mood: anxious 09/30/2012 None Full Exam - General Psychiatric [...] General Respiratory auscultation Overall: breath sounds clear bilater ally 09/30/2012 None Full Exam - General Respiratory [...] Cardiovascular extremities Edema present: severity 1+ - 4+: 2 09/30/2012 None Full Exam - General Abdomen abdominal exam Contour: protuberant 09/30/2012 None Full Exam - General Lymphatic neck nodes Overall: anterior cervical chain robina ign 09/30/2012 None Full Exam - General Lymphatic neck nodes Overall: posterior cervical chain be nign 09/30/2012 None Full Exam - General Musculoskeletal [...] General Respiratory auscultation Overall: breath sounds clear bilater ally 08/14/2012 None Full Exam - General Respiratory [...] Cardiovascular extremities Edema present: severity 1+ - 4+: 2 08/14/2012 None Full Exam - General Abdomen abdominal exam Contour: protuberant 08/14/2012 None Full Exam - General Lymphatic neck nodes Overall: anterior cervical chain robina ign 08/14/2012 None Full Exam - General Lymphatic neck nodes Overall: posterior cervical chain be nign 08/14/2012 None Full Exam - General Musculoskeletal [...] General Psychiatric mood and affect Mood: anxious 08/14/2012 None Full Exam - General Psychiatric [...] General Respiratory auscultation Overall: breath sounds clear bilater ally 08/05/2012 None Full Exam - General Respiratory [...] Cardiovascular extremities Edema present: severity 1+ - 4+: 2 08/05/2012 None Full Exam - General Abdomen abdominal exam Contour: protuberant 08/05/2012 None Full Exam - General Lymphatic neck nodes Overall: anterior cervical chain robina ign 08/05/2012 None Full Exam - General Lymphatic neck nodes Overall: posterior cervical chain be nign 08/05/2012 None Full Exam - General Musculoskeletal [...] General Psychiatric mood and affect Mood: anxious 08/05/2012 None Full Exam - General Psychiatric mood and affect Affect: mood congruent 08/05/2012 None Full Exam - General Integument inspection of skin description of wound erythematous 08/05/2012 None Full Exam - General Integument inspection of skin description of wound indurated 08/05/2012 1-2+ pitting at the later al edge of the wound on the right [...] Lymphatic neck nodes Overall: anterior cervical chain robina ign 07/15/2012 None Full Exam - General Lymphatic neck nodes Overall: posterior cervical chain be nign 07/15/2012 None Full Exam - General Musculoskeletal [...] General Psychiatric mood and affect Mood: anxious 07/15/2012 None Full Exam - General Psychiatric mood and affect Affect: mood congruent 07/15/2012 None Full Exam - General Cardiovascular extremities Edema present: pitting 07/15/2012 None Full Exam - General Cardiovascular extremities Edema present: severity 1+ - 4+: 2 07/15/2012 None Full Exam - General [...] General Respiratory auscultation Overall: breath sounds clear bilater ally 07/15/2012 None Full Exam - General Respiratory [...] 05/03/2012 None Full Exam - General Eyes conjunctiva/eyelids Overall: conjunctiva clear 05/03/2012 None Full Exam - General Eyes pupils and irises Overall: pupils equal, round, reacti ve to light and accomodation 05/03/2012 None Full Exam - General Ears/Nose/Throat otoscopic exam Overall: external auditory canals clear 05/03/2012 None Full Exam - General Ears/Nose/Throat otoscopic exam Overall: tympanic membranes clear 05/03/2012 None Full Exam - General Ears/Nose/Throat oral cavity/pharynx/larynx Oropharynx: a normal exam 05/03/2012 None Full Exam - General Respiratory auscultation Overall: breath sounds clear bilater ally 05/03/2012 None Full Exam - General Respiratory [...] Cardiovascular extremities Edema present: severity 1+ - 4+: _ 03/25/2012 None Full Exam - General [...] Cardiovascular extremities Edema present: severity 1+ - 4+: _ 03/12/2012 None Full Exam - General [...] Cardiovascular extremities Edema present: severity 1+ - 4+: 1 01/23/2012 None Full Exam - General [...] 1994 Chest/Breast breast and axillae palpation Axillae: non-tender 01/12/2012 None Full Exam - General 1994 Chest/Breast breast and axillae palpation Overall: breasts non- tender 01/12/2012 None Full Exam - General 1994 Chest/Breast breast and axillae palpation Overall: axillae non- tender 01/12/2012 None Full Exam - [...] 1994 Chest/Breast breast and axillae palpation Nipple: non-tender 01/12/2012 None Full Exam - General Respiratory respiratory effort/rhythm Overall: normal rate 12/25/2011 None Full Exam - General Ears/Nose/Throat oral cavity/pharynx/larynx Overall: oropharyngeal mucosa clear 12/25/2011 None Full Exam - General Lymphatic neck nodes Overall: anterior cervical chain robina ign 12/25/2011 None Full Exam - General Lymphatic neck nodes Overall: posterior cervical chain be nign 12/25/2011 None Full Exam - General Musculoskeletal [...] General Psychiatric mood and affect Mood: anxious 12/25/2011 None Full Exam - General Psychiatric mood and affect Affect: mood congruent 12/25/2011 None Full Exam - General Respiratory auscultation Overall: breath sounds clear bilater ally 12/25/2011 None Full Exam - General Respiratory [...] Lymphatic neck nodes Overall: anterior cervical chain robina ign 12/04/2011 None Full Exam - General Lymphatic neck nodes Overall: posterior cervical chain be nign 12/04/2011 None Full Exam - General Musculoskeletal [...] General Psychiatric mood and affect Mood: anxious 12/04/2011 None Full Exam - General Psychiatric mood and affect Affect: mood congruent 12/04/2011 None Full Exam - General Respiratory auscultation Overall: breath sounds clear bilater ally 12/04/2011 None Full Exam - General Respiratory [...] Cardiovascular extremities Edema present: severity 1+ - 4+: 2+ 12/04/2011 None Full Exam - General [...] General Respiratory auscultation Overall: breath sounds clear bilater ally 09/20/2011 None Full Exam - General Respiratory [...] Lymphatic neck nodes Overall: anterior cervical chain robina ign 09/20/2011 None Full Exam - General Lymphatic neck nodes Overall: posterior cervical chain be nign 09/20/2011 None Full Exam - General Musculoskeletal [...] General Psychiatric mood and affect Mood: anxious 09/20/2011 None Full Exam - General Psychiatric [...] 09/06/2011 None Full Exam - General Chest/Breast breast/chest inspection Overall: normal chest shape 09/06/2011 None [...] Lymphatic neck nodes Overall: anterior cervical chain robina ign 09/06/2011 None Full Exam - General Lymphatic neck nodes Overall: posterior cervical chain be nign 09/06/2011 None Full Exam - General Musculoskeletal [...] General Respiratory auscultation Overall: breath sounds clear bilater ally 09/06/2011 None Full Exam - General Respiratory [...] General Psychiatric mood and affect Mood: anxious 09/06/2011 None Full Exam - General Psychiatric mood and affect Affect: mood congruent 09/06/2011 None Full Exam - General Cardiovascular inspection of carotid pulses Overall: strong, bilaterally equal, no bruits 08/30/2011 None Full Exam - General Chest/Breast breast/chest inspection Overall: normal chest shape 08/30/2011 None [...] Lymphatic neck nodes Overall: anterior cervical chain robina ign 08/30/2011 None Full Exam - General Lymphatic neck nodes Overall: posterior cervical chain be nign 08/30/2011 None Full Exam - General Musculoskeletal [...] General Respiratory auscultation Overall: breath sounds clear bilater ally 08/30/2011 None Full Exam - General Respiratory [...] ENT Respiratory auscultation Overall: breath sounds clear bilater ally 08/23/2011 None Full Exam - ENT Cardiovascular [...] General Respiratory auscultation Overall: breath sounds clear bilater ally 05/04/2011 None Full Exam - General Respiratory [...] Lymphatic neck nodes Overall: anterior cervical chain robina ign 05/04/2011 None Full Exam - General Lymphatic neck nodes Overall: posterior cervical chain be nign 05/04/2011 None Full Exam - General Musculoskeletal [...] pupils and irises Overall: pupils equal, round, reacti ve to light and accomodation 05/04/2011 None Full [...] 05/04/2011 None Full Exam - General Chest/Breast breast/chest inspection Overall: normal chest shape 05/04/2011 None [...] pupils and irises Overall: pupils equal, round, reacti ve to light and accomodation 04/19/2011 None Full Exam - General Ears/Nose/Throat otoscopic exam Left tympanic membrane: air- fluid level 04/19/2011 None Full Exam - General Ears/Nose/Throat otoscopic exam Right tympanic membrane: air- fluid level 04/19/2011 None Full Exam - General [...] general appearance Overall: well nourished 04/19/2011 None Exam Name System Name It em Name Status Result Effective Dates Notes Full [...] Cardiovascular extremities Edema present: severity 1+ - 4+: 2+ 02/05/2017 None Full Exam - General [...] Cardiovascular extremities Edema present: severity 1+ - 4+: 2+ 02/02/2017 None Full Exam - General [...] ENT Respiratory auscultation Overall: breath sounds clear bilater ally 01/15/2017 None Full Exam - ENT Cardiovascular [...] Neurologic orientation Overall: oriented to person, place a nd time 01/15/2017 None Full Exam - ENT [...] Cardiovascular extremities Edema present: severity 1+ - 4+: 2+ 01/04/2017 None Full Exam - General [...] Cardiovascular extremities Edema present: severity 1+ - 4+: 2+ 09/07/2016 None Full Exam - General [...] Cardiovascular extremities Edema present: severity 1+ - 4+: 2+ 07/06/2016 None Full Exam - General [...] Cardiovascular extremities Edema present: severity 1+ - 4+: 2+ 06/08/2016 None Full Exam - General [...] Cardiovascular extremities Edema present: severity 1+ - 4+: 2+ 04/06/2016 None Full Exam - General [...] Cardiovascular extremities Edema present: severity 1+ - 4+: _ 03/09/2016 None Full Exam - General [...] Cardiovascular extremities Edema present: severity 1+ - 4+: _ 01/18/2016 None Full Exam - General [...] Abdomen abdominal exam Lower quadrant: no rebound tendernes s 09/09/2015 None Full Exam - General 1994 [...] Cardiovascular extremities Edema present: severity 1+ - 4+: 3 09/09/2015 None Full Exam - General [...] Cardiovascular extremities Edema present: severity 1+ - 4+: _ 12/25/2014 None Full Exam - General [...] Cardiovascular extremities Edema present: severity 1+ - 4+: _ 10/13/2014 None Full Exam - General [...] Cardiovascular extremities Edema present: severity 1+ - 4+: _ 08/28/2014 None Full Exam - General [...] Cardiovascular extremities Edema present: severity 1+ - 4+: _ 04/16/2014 None Full Exam - General [...] General Respiratory auscultation Overall: breath sounds clear bilater ally 01/21/2014 None Full Exam - General Respiratory [...] Cardiovascular extremities Edema present: severity 1+ - 4+: 2 01/21/2014 None Full Exam - General Abdomen abdominal exam Contour: protuberant 01/21/2014 None Full Exam - General Lymphatic neck nodes Overall: anterior cervical chain robina ign 01/21/2014 None Full Exam - General Lymphatic neck nodes Overall: posterior cervical chain be nign 01/21/2014 None Full Exam - General Musculoskeletal [...] General Psychiatric mood and affect Mood: anxious 01/21/2014 None Full Exam - General Psychiatric [...] and Head palpation Overall: no induration, no tendernes s 01/07/2014 None Full Exam - ENT Respiratory inspection Overall: no retractions 01/07/2014 None Full Exam - ENT Respiratory inspection Overall: normal rate None Full Exam - ENT Respiratory auscultation Overall: breath sounds clear bilater ally 01/07/2014 None Full Exam - ENT Cardiovascular auscultation of heart Overall: regular rate 01/07/2014 None Full Exam - ENT Cardiovascular auscultation of heart Overall: normal heart sounds 01/07/2014 None Full Exam - ENT Lymphatic palpation of lymph nodes Overall: shotty lymphadenopathy 01/07/2014 None Full Exam - ENT Neurologic orientation Overall: oriented to person, place a nd time 01/07/2014 None Full Exam - ENT [...] Ears/Nose/Throat otoscopic exam Left external auditory canal: partia l cerumen occlusion 12/26/2013 None Full Exam - ENT Ears/Nose/Throat otoscopic exam Right external auditory canal: parti al cerumen occlusion 12/26/2013 None Full Exam - ENT Face and Head inspection of face/head Overall: no scars, lesions, masses 12/26/2013 None Full Exam - ENT Respiratory inspection Overall: no retractions 12/26/2013 None Full Exam - ENT Respiratory inspection Overall: normal rate 09/2013 None Full Exam - ENT Respiratory auscultation Overall: breath sounds clear bilater ally 12/26/2013 None Full Exam - ENT Cardiovascular [...] Neurologic orientation Overall: oriented to person, place a nd time 12/26/2013 None Full Exam - ENT [...] Neurologic orientation Overall: oriented to person, place a nd time 11/12/2013 None Full Exam - ENT Lymphatic palpation of lymph nodes Overall: shotty lymphadenopathy 11/12/2013 None Full Exam - ENT Cardiovascular auscultation of heart Overall: regular rate 11/12/2013 None Full Exam - ENT Cardiovascular auscultation of heart Overall: normal heart sounds 11/12/2013 None Full Exam - ENT Respiratory auscultation Overall: breath sounds clear bilater ally 11/12/2013 None Full Exam - ENT Respiratory [...] and Head palpation Overall: no induration, no tendernes s 11/12/2013 None Full Exam - ENT Ears/Nose/Throat otoscopic exam Overall: external auditory canals normal 11/12/2013 None Full Exam - ENT Ears/Nose/Throat otoscopic exam Overall: tympanic membranes normal 11/12/2013 None Full Exam - ENT Ears/Nose/Throat oropharynx Overall: oral mucosa clear 11/12/2013 None Full Exam - ENT Neurologic orientation Overall: oriented to person, place a nd time 10/09/2013 None Full Exam - ENT [...] ENT Respiratory auscultation Overall: breath sounds clear bilater ally 10/09/2013 None Full Exam - ENT Respiratory [...] Ears/Nose/Throat otoscopic exam Left external auditory canal: partia l cerumen occlusion 10/09/2013 None Full Exam - ENT Ears/Nose/Throat otoscopic exam Right external auditory canal: parti al cerumen occlusion 10/09/2013 None Full Exam - [...] General Respiratory auscultation Overall: breath sounds clear bilater ally 04/03/2013 None Full Exam - General Respiratory [...] Cardiovascular extremities Edema present: severity 1+ - 4+: 2 04/03/2013 None Full Exam - General Abdomen abdominal exam Contour: protuberant 04/03/2013 None Full Exam - General Lymphatic neck nodes Overall: anterior cervical chain robina ign 04/03/2013 None Full Exam - General Lymphatic neck nodes Overall: posterior cervical chain be nign 04/03/2013 None Full Exam - General Musculoskeletal [...] General Psychiatric mood and affect Mood: anxious 04/03/2013 None Full Exam - General Psychiatric [...] General Respiratory auscultation Overall: breath sounds clear bilater ally 01/06/2013 None Full Exam - General Respiratory [...] Cardiovascular extremities Edema present: severity 1+ - 4+: 2 01/06/2013 None Full Exam - General Abdomen abdominal exam Contour: protuberant 01/06/2013 None Full Exam - General Lymphatic neck nodes Overall: anterior cervical chain robina ign 01/06/2013 None Full Exam - General Lymphatic neck nodes Overall: posterior cervical chain be nign 01/06/2013 None Full Exam - General Musculoskeletal [...] General Psychiatric mood and affect Mood: anxious 01/06/2013 None Full Exam - General Psychiatric mood and affect Affect: mood congruent 01/06/2013 None Full Exam - ENT Neurologic orientation Overall: oriented to person, place a nd time 11/21/2012 None Full Exam - ENT [...] ENT Respiratory auscultation Overall: breath sounds clear bilater ally 11/21/2012 None Full Exam - ENT Respiratory [...] General Respiratory auscultation Overall: breath sounds clear bilater ally 10/28/2012 None Full Exam - General Respiratory [...] Cardiovascular extremities Edema present: severity 1+ - 4+: 2 10/28/2012 None Full Exam - General Abdomen abdominal exam Contour: protuberant 10/28/2012 None Full Exam - General Lymphatic neck nodes Overall: anterior cervical chain robina ign 10/28/2012 None Full Exam - General Lymphatic neck nodes Overall: posterior cervical chain be nign 10/28/2012 None Full Exam - General Musculoskeletal [...] General Psychiatric mood and affect Mood: anxious 10/28/2012 None Full Exam - General Psychiatric [...] General Psychiatric mood and affect Mood: anxious 09/30/2012 None Full Exam - General Psychiatric [...] General Respiratory auscultation Overall: breath sounds clear bilater ally 09/30/2012 None Full Exam - General Respiratory [...] Cardiovascular extremities Edema present: severity 1+ - 4+: 2 09/30/2012 None Full Exam - General Abdomen abdominal exam Contour: protuberant 09/30/2012 None Full Exam - General Lymphatic neck nodes Overall: anterior cervical chain robina ign 09/30/2012 None Full Exam - General Lymphatic neck nodes Overall: posterior cervical chain be nign 09/30/2012 None Full Exam - General Musculoskeletal [...] General Respiratory auscultation Overall: breath sounds clear bilater ally 08/14/2012 None Full Exam - General Respiratory [...] Cardiovascular extremities Edema present: severity 1+ - 4+: 2 08/14/2012 None Full Exam - General Abdomen abdominal exam Contour: protuberant 08/14/2012 None Full Exam - General Lymphatic neck nodes Overall: anterior cervical chain robina ign 08/14/2012 None Full Exam - General Lymphatic neck nodes Overall: posterior cervical chain be nign 08/14/2012 None Full Exam - General Musculoskeletal [...] General Psychiatric mood and affect Mood: anxious 08/14/2012 None Full Exam - General Psychiatric [...] General Respiratory auscultation Overall: breath sounds clear bilater ally 08/05/2012 None Full Exam - General Respiratory [...] Cardiovascular extremities Edema present: severity 1+ - 4+: 2 08/05/2012 None Full Exam - General Abdomen abdominal exam Contour: protuberant 08/05/2012 None Full Exam - General Lymphatic neck nodes Overall: anterior cervical chain robina ign 08/05/2012 None Full Exam - General Lymphatic neck nodes Overall: posterior cervical chain be nign 08/05/2012 None Full Exam - General Musculoskeletal [...] General Psychiatric mood and affect Mood: anxious 08/05/2012 None Full Exam - General Psychiatric mood and affect Affect: mood congruent 08/05/2012 None Full Exam - General Integument inspection of skin description of wound erythematous 08/05/2012 None Full Exam - General Integument inspection of skin description of wound indurated 08/05/2012 1-2+ pitting at the later al edge of the wound on the right [...] Lymphatic neck nodes Overall: anterior cervical chain robina ign 07/15/2012 None Full Exam - General Lymphatic neck nodes Overall: posterior cervical chain be nign 07/15/2012 None Full Exam - General Musculoskeletal [...] General Psychiatric mood and affect Mood: anxious 07/15/2012 None Full Exam - General Psychiatric mood and affect Affect: mood congruent 07/15/2012 None Full Exam - General Cardiovascular extremities Edema present: pitting 07/15/2012 None Full Exam - General Cardiovascular extremities Edema present: severity 1+ - 4+: 2 07/15/2012 None Full Exam - General [...] General Respiratory auscultation Overall: breath sounds clear bilater ally 07/15/2012 None Full Exam - General Respiratory [...] 05/03/2012 None Full Exam - General Eyes conjunctiva/eyelids Overall: conjunctiva clear 05/03/2012 None Full Exam - General Eyes pupils and irises Overall: pupils equal, round, reacti ve to light and accomodation 05/03/2012 None Full Exam - General Ears/Nose/Throat otoscopic exam Overall: external auditory canals clear 05/03/2012 None Full Exam - General Ears/Nose/Throat otoscopic exam Overall: tympanic membranes clear 05/03/2012 None Full Exam - General Ears/Nose/Throat oral cavity/pharynx/larynx Oropharynx: a normal exam 05/03/2012 None Full Exam - General Respiratory auscultation Overall: breath sounds clear bilater ally 05/03/2012 None Full Exam - General Respiratory [...] Cardiovascular extremities Edema present: severity 1+ - 4+: _ 03/25/2012 None Full Exam - General [...] Cardiovascular extremities Edema present: severity 1+ - 4+: _ 03/12/2012 None Full Exam - General [...] Cardiovascular extremities Edema present: severity 1+ - 4+: 1 01/23/2012 None Full Exam - General [...] 1994 Chest/Breast breast and axillae palpation Axillae: non-tender 01/12/2012 None Full Exam - General 1994 Chest/Breast breast and axillae palpation Overall: breasts non- tender 01/12/2012 None Full Exam - General 1994 Chest/Breast breast and axillae palpation Overall: axillae non- tender 01/12/2012 None Full Exam - [...] 1994 Chest/Breast breast and axillae palpation Nipple: non-tender 01/12/2012 None Full Exam - General Respiratory respiratory effort/rhythm Overall: normal rate 12/25/2011 None Full Exam - General Ears/Nose/Throat oral cavity/pharynx/larynx Overall: oropharyngeal mucosa clear 12/25/2011 None Full Exam - General Lymphatic neck nodes Overall: anterior cervical chain robina ign 12/25/2011 None Full Exam - General Lymphatic neck nodes Overall: posterior cervical chain be nign 12/25/2011 None Full Exam - General Musculoskeletal [...] General Psychiatric mood and affect Mood: anxious 12/25/2011 None Full Exam - General Psychiatric mood and affect Affect: mood congruent 12/25/2011 None Full Exam - General Respiratory auscultation Overall: breath sounds clear bilater ally 12/25/2011 None Full Exam - General Respiratory [...] Lymphatic neck nodes Overall: anterior cervical chain robina ign 12/04/2011 None Full Exam - General Lymphatic neck nodes Overall: posterior cervical chain be nign 12/04/2011 None Full Exam - General Musculoskeletal [...] General Psychiatric mood and affect Mood: anxious 12/04/2011 None Full Exam - General Psychiatric mood and affect Affect: mood congruent 12/04/2011 None Full Exam - General Respiratory auscultation Overall: breath sounds clear bilater ally 12/04/2011 None Full Exam - General Respiratory [...] Cardiovascular extremities Edema present: severity 1+ - 4+: 2+ 12/04/2011 None Full Exam - General [...] General Respiratory auscultation Overall: breath sounds clear bilater ally 09/20/2011 None Full Exam - General Respiratory [...] Lymphatic neck nodes Overall: anterior cervical chain robina ign 09/20/2011 None Full Exam - General Lymphatic neck nodes Overall: posterior cervical chain be nign 09/20/2011 None Full Exam - General Musculoskeletal [...] General Psychiatric mood and affect Mood: anxious 09/20/2011 None Full Exam - General Psychiatric [...] 09/06/2011 None Full Exam - General Chest/Breast breast/chest inspection Overall: normal chest shape 09/06/2011 None [...] Lymphatic neck nodes Overall: anterior cervical chain robina ign 09/06/2011 None Full Exam - General Lymphatic neck nodes Overall: posterior cervical chain be nign 09/06/2011 None Full Exam - General Musculoskeletal [...] General Respiratory auscultation Overall: breath sounds clear bilater ally 09/06/2011 None Full Exam - General Respiratory [...] General Psychiatric mood and affect Mood: anxious 09/06/2011 None Full Exam - General Psychiatric mood and affect Affect: mood congruent 09/06/2011 None Full Exam - General Cardiovascular inspection of carotid pulses Overall: strong, bilaterally equal, no bruits 08/30/2011 None Full Exam - General Chest/Breast breast/chest inspection Overall: normal chest shape 08/30/2011 None [...] Lymphatic neck nodes Overall: anterior cervical chain robina ign 08/30/2011 None Full Exam - General Lymphatic neck nodes Overall: posterior cervical chain be nign 08/30/2011 None Full Exam - General Musculoskeletal [...] General Respiratory auscultation Overall: breath sounds clear bilater ally 08/30/2011 None Full Exam - General Respiratory [...] ENT Respiratory auscultation Overall: breath sounds clear bilater ally 08/23/2011 None Full Exam - ENT Cardiovascular [...] General Respiratory auscultation Overall: breath sounds clear bilater ally 05/04/2011 None Full Exam - General Respiratory [...] Lymphatic neck nodes Overall: anterior cervical chain robina ign 05/04/2011 None Full Exam - General Lymphatic neck nodes Overall: posterior cervical chain be nign 05/04/2011 None Full Exam - General Musculoskeletal [...] pupils and irises Overall: pupils equal, round, reacti ve to light and accomodation 05/04/2011 None Full [...] 05/04/2011 None Full Exam - General Chest/Breast breast/chest inspection Overall: normal chest shape 05/04/2011 None [...] pupils and irises Overall: pupils equal, round, reacti ve to light and accomodation 04/19/2011 None Full Exam - General Ears/Nose/Throat otoscopic exam Left tympanic membrane: air- fluid level 04/19/2011 None Full Exam - General Ears/Nose/Throat otoscopic exam Right tympanic membrane: air- fluid level 04/19/2011 None Full Exam - General [...] general appearance Overall: well nourished 04/19/2011 None Exam Name System Name It em Name Status Result Effective Dates Notes Full Exam - General 1994 Constitutional general appearance Development: well developed 03/11/2019 None Full Exam - General 1994 Constitutional general appearance Development: appears stated age 0703/11/2019 None Full Exam - General 1994 Constitutional general appearance Overall: in no acute distress 03/11/2019 None Full Exam - General 1994 Constitutional general appearance Overall: well nourished 03/11/2019 None Full Exam - General 1994 Eyes pupils and irises Overall: pupils equal, round, reactive to light and accomodation 03/11/2019 None Full Exam - General 1994 Ears/Nose/Throat otoscopic exam Overall: external auditory canals clear 03/11/2019 None Full Exam - General 1994 Ears/Nose/Throat otoscopic exam Overall: tympanic membranes clear 03/11/2019 None Full Exam - General 1994 Ears/Nose/Throat oral cavity/pharynx/larynx Overall: oral mucosa clear 03/11/2019 None Full Exam - General 1994 Ears/Nose/Throat oral cavity/pharynx/larynx Overall: oropharyngeal mucosa clear 03/11/2019 None Full Exam - General 1994 Ears/Nose/Throat oral cavity/pharynx/larynx Overall: no masses 03/11/2019 None Full Exam - General 1994 Respiratory respiratory effort/rhythm Overall: no retractions 03/11/2019 None Full Exam - General 1994 Respiratory respiratory effort/rhythm Overall: normal rate 03/11/2019 None Full Exam - General 1994 Cardiovascular extremities Overall: no clubbing 03/11/2019 None Full Exam - General 1994 Cardiovascular extremities Edema present: pitting 03/11/2019 None Full Exam - General 1994 Cardiovascular extremities Edema present: severity 1+ - 4+: 2+ 03/11/2019 None Full Exam - General 1994 Cardiovascular extremities Edema present: bilateral 03/11/2019 None Full Exam - General 1994 Cardiovascular auscultation of heart Overall: regular rate 03/11/2019 None Full Exam - General 1994 Cardiovascular auscultation of heart Overall: normal heart sounds 03/11/2019 None Full Exam - General 1994 Abdomen abdominal exam Overall: no tenderness 03/11/2019 None Full Exam - General 1994 Abdomen abdominal exam Overall: normal bowel sounds 03/11/2019 None Full Exam - General 1994 Lymphatic neck nodes Overall: anterior cervical chain benign 03/11/2019 None Full Exam - General 1994 Lymphatic neck nodes Overall: posterior cervical chain benign 03/11/2019 None Full Exam - General 1994 Integument inspection of skin Overall: no rash, lesions 03/11/2019 None Full Exam - General 1994 Psychiatric orientation/consciousness Overall: oriented to person, place and time 03/11/2019 None Full Exam - General 1994 Psychiatric mood and affect Overall: normal mood and affect 03/11/2019 None Full Exam - General 1994 Psychiatric mood and affect Mood: happy 03/11/2019 None Full Exam - General 1994 Respiratory auscultation Upper lung field: expiratory wheezes 03/11/2019 None Full Exam - General 1994 Respiratory auscultation Lower lung field: expiratory wheezes 03/11/2019 None Full Exam - General 1994 Musculoskeletal head and neck Overall: head atraumatic 03/11/2019 None Full Exam - General 1994 Musculoskeletal head and neck Overall: cervical spine benign 03/11/2019 None Full Exam - General 1994 Musculoskeletal spine, ribs and pelvis Posture: lordosis 03/11/2019 None Full Exam - General 1994 Musculoskeletal spine, ribs and pelvis Sacroiliac joints: tender right sacroiliac joint 03/11/2019 None Full Exam - General 1994 Musculoskeletal spine, ribs and pelvis Sacroiliac joints: tender left sacroiliac joint 03/11/2019 None Full Exam - General 1994 Constitutional [...] Cardiovascular extremities Edema present: severity 1+ - 4+: 2+ 09/03/2018 None Full Exam - General [...] Cardiovascular extremities Edema present: severity 1+ - 4+: 2+ 05/29/2018 None Full Exam - General [...] Cardiovascular extremities Edema present: severity 1+ - 4+: 2+ 04/25/2018 None Full Exam - General [...] None Full Exam - General 1994 Eyes conjunctiva/eyelids Overall: eyelids normal 02/06/2018 None Full Exam - General 1994 Eyes conjunctiva/eyelids Overall: cornea clear 02/06/2018 None Full Exam - General 1994 Eyes conjunctiva/eyelids Overall: conjunctiva clear 02/06/2018 None Full Exam [...] Cardiovascular extremities Edema present: severity 1+ - 4+: 2+ 01/23/2018 None Full Exam - General [...] Cardiovascular extremities Edema present: severity 1+ - 4+: 2+ 09/12/2017 None Full Exam - General [...] ENT Respiratory auscultation Overall: breath sounds clear bilater ally 08/31/2017 None Full Exam - ENT Cardiovascular [...] Neurologic orientation Overall: oriented to person, place a nd time 08/31/2017 None Full Exam - ENT Ears/Nose/Throat lips/teeth/gingiva Overall: benign lips 08/31/2017 None Full Exam - ENT Ears/Nose/Throat oropharynx Posterior Pharynx: clear post nasal drainage 08/31/2017 None Full Exam - ENT Respiratory auscultation Diffuse: diminished 08/31/2017 None Full Exam - ENT Constitutional [...] ENT Respiratory auscultation Overall: breath sounds clear bilater ally 08/09/2017 None Full Exam - ENT Cardiovascular [...] Neurologic orientation Overall: oriented to person, place a nd time 08/09/2017 None Full Exam - ENT [...] Cardiovascular extremities Edema present: severity 1+ - 4+: 2+ 05/07/2017 None Full Exam - General [...] None Full Exam - General 1994 Eyes conjunctiva/eyelids Overall: conjunctiva clear 04/12/2017 None Full Exam - General 1994 Eyes conjunctiva/eyelids Overall: eyelids normal 04/12/2017 None Full Exam [...] Cardiovascular extremities Edema present: severity 1+ - 4+: 2+ 02/05/2017 None Full Exam - General [...] Cardiovascular extremities Edema present: severity 1+ - 4+: 2+ 02/02/2017 None Full Exam - General [...] ENT Respiratory auscultation Overall: breath sounds clear bilater ally 01/15/2017 None Full Exam - ENT Cardiovascular [...] Neurologic orientation Overall: oriented to person, place a nd time 01/15/2017 None Full Exam - ENT [...] Cardiovascular extremities Edema present: severity 1+ - 4+: 2+ 01/04/2017 None Full Exam - General [...] Cardiovascular extremities Edema present: severity 1+ - 4+: 2+ 09/07/2016 None Full Exam - General [...] Cardiovascular extremities Edema present: severity 1+ - 4+: 2+ 07/06/2016 None Full Exam - General [...] Cardiovascular extremities Edema present: severity 1+ - 4+: 2+ 06/08/2016 None Full Exam - General [...] Cardiovascular extremities Edema present: severity 1+ - 4+: 2+ 04/06/2016 None Full Exam - General [...] Cardiovascular extremities Edema present: severity 1+ - 4+: _ 03/09/2016 None Full Exam - General [...] Cardiovascular extremities Edema present: severity 1+ - 4+: _ 01/18/2016 None Full Exam - General [...] Abdomen abdominal exam Lower quadrant: no rebound tendernes s 09/09/2015 None Full Exam - General 1994 [...] Cardiovascular extremities Edema present: severity 1+ - 4+: 3 09/09/2015 None Full Exam - General [...] Cardiovascular extremities Edema present: severity 1+ - 4+: _ 12/25/2014 None Full Exam - General [...] Cardiovascular extremities Edema present: severity 1+ - 4+: _ 10/13/2014 None Full Exam - General [...] Cardiovascular extremities Edema present: severity 1+ - 4+: _ 08/28/2014 None Full Exam - General [...] Cardiovascular extremities Edema present: severity 1+ - 4+: _ 04/16/2014 None Full Exam - General [...] General Respiratory auscultation Overall: breath sounds clear bilater ally 01/21/2014 None Full Exam - General Respiratory [...] Cardiovascular extremities Edema present: severity 1+ - 4+: 2 01/21/2014 None Full Exam - General Abdomen abdominal exam Contour: protuberant 01/21/2014 None Full Exam - General Lymphatic neck nodes Overall: anterior cervical chain robina ign 01/21/2014 None Full Exam - General Lymphatic neck nodes Overall: posterior cervical chain be nign 01/21/2014 None Full Exam - General Musculoskeletal [...] General Psychiatric mood and affect Mood: anxious 01/21/2014 None Full Exam - General Psychiatric [...] and Head palpation Overall: no induration, no tendernes s 01/07/2014 None Full Exam - ENT Respiratory inspection Overall: no retractions 01/07/2014 None Full Exam - ENT Respiratory inspection Overall: normal rate None Full Exam - ENT Respiratory auscultation Overall: breath sounds clear bilater ally 01/07/2014 None Full Exam - ENT Cardiovascular auscultation of heart Overall: regular rate 01/07/2014 None Full Exam - ENT Cardiovascular auscultation of heart Overall: normal heart sounds 01/07/2014 None Full Exam - ENT Lymphatic palpation of lymph nodes Overall: shotty lymphadenopathy 01/07/2014 None Full Exam - ENT Neurologic orientation Overall: oriented to person, place a nd time 01/07/2014 None Full Exam - ENT [...] Ears/Nose/Throat otoscopic exam Left external auditory canal: partia l cerumen occlusion 12/26/2013 None Full Exam - ENT Ears/Nose/Throat otoscopic exam Right external auditory canal: parti al cerumen occlusion 12/26/2013 None Full Exam - ENT Face and Head inspection of face/head Overall: no scars, lesions, masses 12/26/2013 None Full Exam - ENT Respiratory inspection Overall: no retractions 12/26/2013 None Full Exam - ENT Respiratory inspection Overall: normal rate 09/2013 None Full Exam - ENT Respiratory auscultation Overall: breath sounds clear bilater ally 12/26/2013 None Full Exam - ENT Cardiovascular [...] Neurologic orientation Overall: oriented to person, place a nd time 12/26/2013 None Full Exam - ENT [...] Neurologic orientation Overall: oriented to person, place a nd time 11/12/2013 None Full Exam - ENT Lymphatic palpation of lymph nodes Overall: shotty lymphadenopathy 11/12/2013 None Full Exam - ENT Cardiovascular auscultation of heart Overall: regular rate 11/12/2013 None Full Exam - ENT Cardiovascular auscultation of heart Overall: normal heart sounds 11/12/2013 None Full Exam - ENT Respiratory auscultation Overall: breath sounds clear bilater ally 11/12/2013 None Full Exam - ENT Respiratory [...] and Head palpation Overall: no induration, no tendernes s 11/12/2013 None Full Exam - ENT Ears/Nose/Throat otoscopic exam Overall: external auditory canals normal 11/12/2013 None Full Exam - ENT Ears/Nose/Throat otoscopic exam Overall: tympanic membranes normal 11/12/2013 None Full Exam - ENT Ears/Nose/Throat oropharynx Overall: oral mucosa clear 11/12/2013 None Full Exam - ENT Neurologic orientation Overall: oriented to person, place a nd time 10/09/2013 None Full Exam - ENT [...] ENT Respiratory auscultation Overall: breath sounds clear bilater ally 10/09/2013 None Full Exam - ENT Respiratory [...] Ears/Nose/Throat otoscopic exam Left external auditory canal: partia l cerumen occlusion 10/09/2013 None Full Exam - ENT Ears/Nose/Throat otoscopic exam Right external auditory canal: parti al cerumen occlusion 10/09/2013 None Full Exam - [...] General Respiratory auscultation Overall: breath sounds clear bilater ally 04/03/2013 None Full Exam - General Respiratory [...] Cardiovascular extremities Edema present: severity 1+ - 4+: 2 04/03/2013 None Full Exam - General Abdomen abdominal exam Contour: protuberant 04/03/2013 None Full Exam - General Lymphatic neck nodes Overall: anterior cervical chain robina ign 04/03/2013 None Full Exam - General Lymphatic neck nodes Overall: posterior cervical chain be nign 04/03/2013 None Full Exam - General Musculoskeletal [...] General Psychiatric mood and affect Mood: anxious 04/03/2013 None Full Exam - General Psychiatric [...] General Respiratory auscultation Overall: breath sounds clear bilater ally 01/06/2013 None Full Exam - General Respiratory [...] Cardiovascular extremities Edema present: severity 1+ - 4+: 2 01/06/2013 None Full Exam - General Abdomen abdominal exam Contour: protuberant 01/06/2013 None Full Exam - General Lymphatic neck nodes Overall: anterior cervical chain robina ign 01/06/2013 None Full Exam - General Lymphatic neck nodes Overall: posterior cervical chain be nign 01/06/2013 None Full Exam - General Musculoskeletal [...] General Psychiatric mood and affect Mood: anxious 01/06/2013 None Full Exam - General Psychiatric mood and affect Affect: mood congruent 01/06/2013 None Full Exam - ENT Neurologic orientation Overall: oriented to person, place a nd time 11/21/2012 None Full Exam - ENT [...] ENT Respiratory auscultation Overall: breath sounds clear bilater ally 11/21/2012 None Full Exam - ENT Respiratory [...] General Respiratory auscultation Overall: breath sounds clear bilater ally 10/28/2012 None Full Exam - General Respiratory [...] Cardiovascular extremities Edema present: severity 1+ - 4+: 2 10/28/2012 None Full Exam - General Abdomen abdominal exam Contour: protuberant 10/28/2012 None Full Exam - General Lymphatic neck nodes Overall: anterior cervical chain robina ign 10/28/2012 None Full Exam - General Lymphatic neck nodes Overall: posterior cervical chain be nign 10/28/2012 None Full Exam - General Musculoskeletal [...] General Psychiatric mood and affect Mood: anxious 10/28/2012 None Full Exam - General Psychiatric [...] General Psychiatric mood and affect Mood: anxious 09/30/2012 None Full Exam - General Psychiatric [...] General Respiratory auscultation Overall: breath sounds clear bilater ally 09/30/2012 None Full Exam - General Respiratory [...] Cardiovascular extremities Edema present: severity 1+ - 4+: 2 09/30/2012 None Full Exam - General Abdomen abdominal exam Contour: protuberant 09/30/2012 None Full Exam - General Lymphatic neck nodes Overall: anterior cervical chain robina ign 09/30/2012 None Full Exam - General Lymphatic neck nodes Overall: posterior cervical chain be nign 09/30/2012 None Full Exam - General Musculoskeletal [...] General Respiratory auscultation Overall: breath sounds clear bilater ally 08/14/2012 None Full Exam - General Respiratory [...] Cardiovascular extremities Edema present: severity 1+ - 4+: 2 08/14/2012 None Full Exam - General Abdomen abdominal exam Contour: protuberant 08/14/2012 None Full Exam - General Lymphatic neck nodes Overall: anterior cervical chain robina ign 08/14/2012 None Full Exam - General Lymphatic neck nodes Overall: posterior cervical chain be nign 08/14/2012 None Full Exam - General Musculoskeletal [...] General Psychiatric mood and affect Mood: anxious 08/14/2012 None Full Exam - General Psychiatric [...] General Respiratory auscultation Overall: breath sounds clear bilater ally 08/05/2012 None Full Exam - General Respiratory [...] Cardiovascular extremities Edema present: severity 1+ - 4+: 2 08/05/2012 None Full Exam - General Abdomen abdominal exam Contour: protuberant 08/05/2012 None Full Exam - General Lymphatic neck nodes Overall: anterior cervical chain robina ign 08/05/2012 None Full Exam - General Lymphatic neck nodes Overall: posterior cervical chain be nign 08/05/2012 None Full Exam - General Musculoskeletal [...] General Psychiatric mood and affect Mood: anxious 08/05/2012 None Full Exam - General Psychiatric mood and affect Affect: mood congruent 08/05/2012 None Full Exam - General Integument inspection of skin description of wound erythematous 08/05/2012 None Full Exam - General Integument inspection of skin description of wound indurated 08/05/2012 1-2+ pitting at the later al edge of the wound on the right [...] Lymphatic neck nodes Overall: anterior cervical chain robina ign 07/15/2012 None Full Exam - General Lymphatic neck nodes Overall: posterior cervical chain be nign 07/15/2012 None Full Exam - General Musculoskeletal [...] General Psychiatric mood and affect Mood: anxious 07/15/2012 None Full Exam - General Psychiatric mood and affect Affect: mood congruent 07/15/2012 None Full Exam - General Cardiovascular extremities Edema present: pitting 07/15/2012 None Full Exam - General Cardiovascular extremities Edema present: severity 1+ - 4+: 2 07/15/2012 None Full Exam - General [...] General Respiratory auscultation Overall: breath sounds clear bilater ally 07/15/2012 None Full Exam - General Respiratory [...] 05/27/2012 None Full Exam - General 1995 Respiratory respiratory effort/rhythm Overall: no retractions 05/27/2012 None Full Exam - General Constitutional general appearance Overall: well nourished 05/03/2012 None Full Exam - General Constitutional general appearance Overall: well developed 05/03/2012 None Full Exam - General Constitutional general appearance Overall: in no acute distress 05/03/2012 None Full Exam - General Eyes conjunctiva/eyelids Overall: conjunctiva clear 05/03/2012 None Full Exam - General Eyes pupils and irises Overall: pupils equal, round, reacti ve to light and accomodation 05/03/2012 None Full Exam - General Ears/Nose/Throat otoscopic exam Overall: external auditory canals clear 05/03/2012 None Full Exam - General Ears/Nose/Throat otoscopic exam Overall: tympanic membranes clear 05/03/2012 None Full Exam - General Ears/Nose/Throat oral cavity/pharynx/larynx Oropharynx: a normal exam 05/03/2012 None Full Exam - General Respiratory auscultation Overall: breath sounds clear bilater ally 05/03/2012 None Full Exam - General Respiratory [...] Cardiovascular extremities Edema present: severity 1+ - 4+: _ 03/25/2012 None Full Exam - General [...] affect 03/25/2012 None Full Exam - General 1995 Constitutional general appearance Development: well developed 03/25/2012 None Full Exam - General 1995 Constitutional general appearance Development: appears stated age [...] Cardiovascular extremities Edema present: severity 1+ - 4+: _ 03/12/2012 None Full Exam - General [...] Cardiovascular extremities Edema present: severity 1+ - 4+: 1 01/23/2012 None Full Exam - General [...] 1994 Chest/Breast breast and axillae palpation Axillae: non-tender 01/12/2012 None Full Exam - General 1994 Chest/Breast breast and axillae palpation Overall: breasts non- tender 01/12/2012 None Full Exam - General 1994 Chest/Breast breast and axillae palpation Overall: axillae non- tender 01/12/2012 None Full Exam - [...] 1994 Chest/Breast breast and axillae palpation Nipple: non-tender 01/12/2012 None Full Exam - General Respiratory respiratory effort/rhythm Overall: normal rate 12/25/2011 None Full Exam - General Ears/Nose/Throat oral cavity/pharynx/larynx Overall: oropharyngeal mucosa clear 12/25/2011 None Full Exam - General Lymphatic neck nodes Overall: anterior cervical chain robina ign 12/25/2011 None Full Exam - General Lymphatic neck nodes Overall: posterior cervical chain be nign 12/25/2011 None Full Exam - General Musculoskeletal [...] General Psychiatric mood and affect Mood: anxious 12/25/2011 None Full Exam - General Psychiatric mood and affect Affect: mood congruent 12/25/2011 None Full Exam - General Respiratory auscultation Overall: breath sounds clear bilater ally 12/25/2011 None Full Exam - General Respiratory [...] Lymphatic neck nodes Overall: anterior cervical chain robina ign 12/04/2011 None Full Exam - General Lymphatic neck nodes Overall: posterior cervical chain be nign 12/04/2011 None Full Exam - General Musculoskeletal [...] General Psychiatric mood and affect Mood: anxious 12/04/2011 None Full Exam - General Psychiatric mood and affect Affect: mood congruent 12/04/2011 None Full Exam - General Respiratory auscultation Overall: breath sounds clear bilater ally 12/04/2011 None Full Exam - General Respiratory [...] Cardiovascular extremities Edema present: severity 1+ - 4+: 2+ 12/04/2011 None Full Exam - General [...] General Respiratory auscultation Overall: breath sounds clear bilater ally 09/20/2011 None Full Exam - General Respiratory [...] Lymphatic neck nodes Overall: anterior cervical chain robina ign 09/20/2011 None Full Exam - General Lymphatic neck nodes Overall: posterior cervical chain be nign 09/20/2011 None Full Exam - General Musculoskeletal [...] General Psychiatric mood and affect Mood: anxious 09/20/2011 None Full Exam - General Psychiatric [...] 09/06/2011 None Full Exam - General Chest/Breast breast/chest inspection Overall: normal chest shape 09/06/2011 None [...] Lymphatic neck nodes Overall: anterior cervical chain robina ign 09/06/2011 None Full Exam - General Lymphatic neck nodes Overall: posterior cervical chain be nign 09/06/2011 None Full Exam - General Musculoskeletal [...] General Respiratory auscultation Overall: breath sounds clear bilater ally 09/06/2011 None Full Exam - General Respiratory [...] General Psychiatric mood and affect Mood: anxious 09/06/2011 None Full Exam - General Psychiatric mood and affect Affect: mood congruent 09/06/2011 None Full Exam - General Cardiovascular inspection of carotid pulses Overall: strong, bilaterally equal, no bruits 08/30/2011 None Full Exam - General Chest/Breast breast/chest inspection Overall: normal chest shape 08/30/2011 None [...] Lymphatic neck nodes Overall: anterior cervical chain robina ign 08/30/2011 None Full Exam - General Lymphatic neck nodes Overall: posterior cervical chain be nign 08/30/2011 None Full Exam - General Musculoskeletal [...] General Respiratory auscultation Overall: breath sounds clear bilater ally 08/30/2011 None Full Exam - General Respiratory [...] ENT Respiratory auscultation Overall: breath sounds clear bilater ally 08/23/2011 None Full Exam - ENT Cardiovascular [...] General Respiratory auscultation Overall: breath sounds clear bilater ally 05/04/2011 None Full Exam - General Respiratory [...] Lymphatic neck nodes Overall: anterior cervical chain robina ign 05/04/2011 None Full Exam - General Lymphatic neck nodes Overall: posterior cervical chain be nign 05/04/2011 None Full Exam - General Musculoskeletal [...] pupils and irises Overall: pupils equal, round, reacti ve to light and accomodation 05/04/2011 None Full [...] 05/04/2011 None Full Exam - General Chest/Breast breast/chest inspection Overall: normal chest shape 05/04/2011 None [...] pupils and irises Overall: pupils equal, round, reacti ve to light and accomodation 04/19/2011 None Full Exam - General Ears/Nose/Throat otoscopic exam Left tympanic membrane: air- fluid level 04/19/2011 None Full Exam - General Ears/Nose/Throat otoscopic exam Right tympanic membrane: air- fluid level 04/19/2011 None Full Exam - General [...] general appearance Overall: well nourished 04/19/2011 None Exam Name System Name It em Name Status Result Effective Dates Notes Full Exam - General 1994 Constitutional general appearance Development: well developed 04/01/2019 None Full Exam - General 1994 Constitutional general appearance Development: appears stated age 0804/01/2019 None Full Exam - General 1994 Constitutional general appearance Overall: in no acute distress 04/01/2019 None Full Exam - General 1994 Constitutional general appearance Overall: well nourished 04/01/2019 None Full Exam - General 1994 Eyes pupils and irises Overall: pupils equal, round, reactive to light and accomodation 04/01/2019 None Full Exam - General 1994 Ears/Nose/Throat otoscopic exam Overall: external auditory canals clear 04/01/2019 None Full Exam - General 1994 Ears/Nose/Throat otoscopic exam Overall: tympanic membranes clear 04/01/2019 None Full Exam - General 1994 Ears/Nose/Throat oral cavity/pharynx/larynx Overall: oral mucosa clear 04/01/2019 None Full Exam - General 1994 Ears/Nose/Throat oral cavity/pharynx/larynx Overall: oropharyngeal mucosa clear 04/01/2019 None Full Exam - General 1994 Ears/Nose/Throat oral cavity/pharynx/larynx Overall: no masses 04/01/2019 None Full Exam - General 1994 Respiratory auscultation Overall: breath sounds clear bilaterally 04/01/2019 None Full Exam - General 1994 Respiratory respiratory effort/rhythm Overall: no retractions 04/01/2019 None Full Exam - General 1994 Respiratory respiratory effort/rhythm Overall: normal rate 04/01/2019 None Full Exam - General 1994 Cardiovascular extremities Overall: no clubbing 04/01/2019 None Full Exam - General 1994 Cardiovascular extremities Edema present: pitting 04/01/2019 None Full Exam - General 1994 Cardiovascular extremities Edema present: severity 1+ - 4+: 2+ 04/01/2019 None Full Exam - General 1994 Cardiovascular extremities Edema present: bilateral 04/01/2019 None Full Exam - General 1994 Cardiovascular auscultation of heart Overall: regular rate 04/01/2019 None Full Exam - General 1994 Cardiovascular auscultation of heart Overall: normal heart sounds 04/01/2019 None Full Exam - General 1994 Abdomen abdominal exam Overall: normal bowel sounds 04/01/2019 None Full Exam - General 1994 Psychiatric orientation/consciousness Overall: oriented to person, place and time 04/01/2019 None Full Exam - General 1994 Psychiatric mood and affect Overall: normal mood and affect 04/01/2019 None Full Exam - General 1994 Psychiatric mood and affect Mood: happy 04/01/2019 None Full Exam - General 1994 Abdomen abdominal exam Contour: rounded 04/01/2019 tender over upper abdomen near surgical incision site - small lipoma or omental hernia. Full Exam - General 1994 Constitutional general appearance Development: well developed 03/11/2019 None Full Exam - General 1994 Constitutional general appearance Development: appears stated age 0703/11/2019 None Full Exam - General 1994 Constitutional general appearance Overall: in no acute distress 03/11/2019 None Full Exam - General 1994 Constitutional general appearance Overall: well nourished 03/11/2019 None Full Exam - General 1994 Eyes pupils and irises Overall: pupils equal, round, reactive to light and accomodation 03/11/2019 None Full Exam - General 1994 Ears/Nose/Throat otoscopic exam Overall: external auditory canals clear 03/11/2019 None Full Exam - General 1994 Ears/Nose/Throat otoscopic exam Overall: tympanic membranes clear 03/11/2019 None Full Exam - General 1994 Ears/Nose/Throat oral cavity/pharynx/larynx Overall: oral mucosa clear 03/11/2019 None Full Exam - General 1994 Ears/Nose/Throat oral cavity/pharynx/larynx Overall: oropharyngeal mucosa clear 03/11/2019 None Full Exam - General 1994 Ears/Nose/Throat oral cavity/pharynx/larynx Overall: no masses 03/11/2019 None Full Exam - General 1994 Respiratory respiratory effort/rhythm Overall: no retractions 03/11/2019 None Full Exam - General 1994 Respiratory respiratory effort/rhythm Overall: normal rate 03/11/2019 None Full Exam - General 1994 Cardiovascular extremities Overall: no clubbing 03/11/2019 None Full Exam - General 1994 Cardiovascular extremities Edema present: pitting 03/11/2019 None Full Exam - General 1994 Cardiovascular extremities Edema present: severity 1+ - 4+: 2+ 03/11/2019 None Full Exam - General 1994 Cardiovascular extremities Edema present: bilateral 03/11/2019 None Full Exam - General 1994 Cardiovascular auscultation of heart Overall: regular rate 03/11/2019 None Full Exam - General 1994 Cardiovascular auscultation of heart Overall: normal heart sounds 03/11/2019 None Full Exam - General 1994 Abdomen abdominal exam Overall: no tenderness 03/11/2019 None Full Exam - General 1994 Abdomen abdominal exam Overall: normal bowel sounds 03/11/2019 None Full Exam - General 1994 Lymphatic neck nodes Overall: anterior cervical chain benign 03/11/2019 None Full Exam - General 1994 Lymphatic neck nodes Overall: posterior cervical chain benign 03/11/2019 None Full Exam - General 1994 Integument inspection of skin Overall: no rash, lesions 03/11/2019 None Full Exam - General 1994 Psychiatric orientation/consciousness Overall: oriented to person, place and time 03/11/2019 None Full Exam - General 1994 Psychiatric mood and affect Overall: normal mood and affect 03/11/2019 None Full Exam - General 1994 Psychiatric mood and affect Mood: happy 03/11/2019 None Full Exam - General 1994 Respiratory auscultation Upper lung field: expiratory wheezes 03/11/2019 None Full Exam - General 1994 Respiratory auscultation Lower lung field: expiratory wheezes 03/11/2019 None Full Exam - General 1994 Musculoskeletal head and neck Overall: head atraumatic 03/11/2019 None Full Exam - General 1994 Musculoskeletal head and neck Overall: cervical spine benign 03/11/2019 None Full Exam - General 1994 Musculoskeletal spine, ribs and pelvis Posture: lordosis 03/11/2019 None Full Exam - General 1994 Musculoskeletal spine, ribs and pelvis Sacroiliac joints: tender right sacroiliac joint 03/11/2019 None Full Exam - General 1994 Musculoskeletal spine, ribs and pelvis Sacroiliac joints: tender left sacroiliac joint 03/11/2019 None Full Exam - General 1994 Constitutional [...] Cardiovascular extremities Edema present: severity 1+ - 4+: 2+ 09/03/2018 None Full Exam - General [...] Cardiovascular extremities Edema present: severity 1+ - 4+: 2+ 05/29/2018 None Full Exam - General [...] Cardiovascular extremities Edema present: severity 1+ - 4+: 2+ 04/25/2018 None Full Exam - General [...] None Full Exam - General 1994 Eyes conjunctiva/eyelids Overall: eyelids normal 02/06/2018 None Full Exam - General 1994 Eyes conjunctiva/eyelids Overall: cornea clear 02/06/2018 None Full Exam - General 1994 Eyes conjunctiva/eyelids Overall: conjunctiva clear 02/06/2018 None Full Exam [...] Cardiovascular extremities Edema present: severity 1+ - 4+: 2+ 01/23/2018 None Full Exam - General [...] Cardiovascular extremities Edema present: severity 1+ - 4+: 2+ 09/12/2017 None Full Exam - General [...] ENT Respiratory auscultation Overall: breath sounds clear bilater ally 08/31/2017 None Full Exam - ENT Cardiovascular [...] Neurologic orientation Overall: oriented to person, place a nd time 08/31/2017 None Full Exam - ENT Ears/Nose/Throat lips/teeth/gingiva Overall: benign lips 08/31/2017 None Full Exam - ENT Ears/Nose/Throat oropharynx Posterior Pharynx: clear post nasal drainage 08/31/2017 None Full Exam - ENT Respiratory auscultation Diffuse: diminished 08/31/2017 None Full Exam - ENT Constitutional [...] ENT Respiratory auscultation Overall: breath sounds clear bilater ally 08/09/2017 None Full Exam - ENT Cardiovascular [...] Neurologic orientation Overall: oriented to person, place a nd time 08/09/2017 None Full Exam - ENT [...] Cardiovascular extremities Edema present: severity 1+ - 4+: 2+ 05/07/2017 None Full Exam - General [...] None Full Exam - General 1994 Eyes conjunctiva/eyelids Overall: conjunctiva clear 04/12/2017 None Full Exam - General 1994 Eyes conjunctiva/eyelids Overall: eyelids normal 04/12/2017 None Full Exam [...] Cardiovascular extremities Edema present: severity 1+ - 4+: 2+ 02/05/2017 None Full Exam - General [...] Cardiovascular extremities Edema present: severity 1+ - 4+: 2+ 02/02/2017 None Full Exam - General [...] ENT Respiratory auscultation Overall: breath sounds clear bilater ally 01/15/2017 None Full Exam - ENT Cardiovascular [...] Neurologic orientation Overall: oriented to person, place a nd time 01/15/2017 None Full Exam - ENT [...] Cardiovascular extremities Edema present: severity 1+ - 4+: 2+ 01/04/2017 None Full Exam - General [...] Cardiovascular extremities Edema present: severity 1+ - 4+: 2+ 09/07/2016 None Full Exam - General [...] Cardiovascular extremities Edema present: severity 1+ - 4+: 2+ 07/06/2016 None Full Exam - General [...] Cardiovascular extremities Edema present: severity 1+ - 4+: 2+ 06/08/2016 None Full Exam - General [...] Cardiovascular extremities Edema present: severity 1+ - 4+: 2+ 04/06/2016 None Full Exam - General [...] Cardiovascular extremities Edema present: severity 1+ - 4+: _ 03/09/2016 None Full Exam - General [...] Cardiovascular extremities Edema present: severity 1+ - 4+: _ 01/18/2016 None Full Exam - General [...] Abdomen abdominal exam Lower quadrant: no rebound tendernes s 09/09/2015 None Full Exam - General 1994 [...] Cardiovascular extremities Edema present: severity 1+ - 4+: 3 09/09/2015 None Full Exam - General [...] Cardiovascular extremities Edema present: severity 1+ - 4+: _ 12/25/2014 None Full Exam - General [...] Cardiovascular extremities Edema present: severity 1+ - 4+: _ 10/13/2014 None Full Exam - General [...] Cardiovascular extremities Edema present: severity 1+ - 4+: _ 08/28/2014 None Full Exam - General [...] Cardiovascular extremities Edema present: severity 1+ - 4+: _ 04/16/2014 None Full Exam - General [...] General Respiratory auscultation Overall: breath sounds clear bilater ally 01/21/2014 None Full Exam - General Respiratory [...] Cardiovascular extremities Edema present: severity 1+ - 4+: 2 01/21/2014 None Full Exam - General Abdomen abdominal exam Contour: protuberant 01/21/2014 None Full Exam - General Lymphatic neck nodes Overall: anterior cervical chain robina ign 01/21/2014 None Full Exam - General Lymphatic neck nodes Overall: posterior cervical chain be nign 01/21/2014 None Full Exam - General Musculoskeletal [...] General Psychiatric mood and affect Mood: anxious 01/21/2014 None Full Exam - General Psychiatric [...] and Head palpation Overall: no induration, no tendernes s 01/07/2014 None Full Exam - ENT Respiratory inspection Overall: no retractions 01/07/2014 None Full Exam - ENT Respiratory inspection Overall: normal rate None Full Exam - ENT Respiratory auscultation Overall: breath sounds clear bilater ally 01/07/2014 None Full Exam - ENT Cardiovascular auscultation of heart Overall: regular rate 01/07/2014 None Full Exam - ENT Cardiovascular auscultation of heart Overall: normal heart sounds 01/07/2014 None Full Exam - ENT Lymphatic palpation of lymph nodes Overall: shotty lymphadenopathy 01/07/2014 None Full Exam - ENT Neurologic orientation Overall: oriented to person, place a nd time 01/07/2014 None Full Exam - ENT [...] Ears/Nose/Throat otoscopic exam Left external auditory canal: partia l cerumen occlusion 12/26/2013 None Full Exam - ENT Ears/Nose/Throat otoscopic exam Right external auditory canal: parti al cerumen occlusion 12/26/2013 None Full Exam - ENT Face and Head inspection of face/head Overall: no scars, lesions, masses 12/26/2013 None Full Exam - ENT Respiratory inspection Overall: no retractions 12/26/2013 None Full Exam - ENT Respiratory inspection Overall: normal rate 09/2013 None Full Exam - ENT Respiratory auscultation Overall: breath sounds clear bilater ally 12/26/2013 None Full Exam - ENT Cardiovascular [...] Neurologic orientation Overall: oriented to person, place a nd time 12/26/2013 None Full Exam - ENT [...] Neurologic orientation Overall: oriented to person, place a nd time 11/12/2013 None Full Exam - ENT Lymphatic palpation of lymph nodes Overall: shotty lymphadenopathy 11/12/2013 None Full Exam - ENT Cardiovascular auscultation of heart Overall: regular rate 11/12/2013 None Full Exam - ENT Cardiovascular auscultation of heart Overall: normal heart sounds 11/12/2013 None Full Exam - ENT Respiratory auscultation Overall: breath sounds clear bilater ally 11/12/2013 None Full Exam - ENT Respiratory [...] and Head palpation Overall: no induration, no tendernes s 11/12/2013 None Full Exam - ENT Ears/Nose/Throat otoscopic exam Overall: external auditory canals normal 11/12/2013 None Full Exam - ENT Ears/Nose/Throat otoscopic exam Overall: tympanic membranes normal 11/12/2013 None Full Exam - ENT Ears/Nose/Throat oropharynx Overall: oral mucosa clear 11/12/2013 None Full Exam - ENT Neurologic orientation Overall: oriented to person, place a nd time 10/09/2013 None Full Exam - ENT [...] ENT Respiratory auscultation Overall: breath sounds clear bilater ally 10/09/2013 None Full Exam - ENT Respiratory [...] Ears/Nose/Throat otoscopic exam Left external auditory canal: partia l cerumen occlusion 10/09/2013 None Full Exam - ENT Ears/Nose/Throat otoscopic exam Right external auditory canal: parti al cerumen occlusion 10/09/2013 None Full Exam - [...] General Respiratory auscultation Overall: breath sounds clear bilater ally 04/03/2013 None Full Exam - General Respiratory [...] Cardiovascular extremities Edema present: severity 1+ - 4+: 2 04/03/2013 None Full Exam - General Abdomen abdominal exam Contour: protuberant 04/03/2013 None Full Exam - General Lymphatic neck nodes Overall: anterior cervical chain robina ign 04/03/2013 None Full Exam - General Lymphatic neck nodes Overall: posterior cervical chain be nign 04/03/2013 None Full Exam - General Musculoskeletal [...] General Psychiatric mood and affect Mood: anxious 04/03/2013 None Full Exam - General Psychiatric [...] General Respiratory auscultation Overall: breath sounds clear bilater ally 01/06/2013 None Full Exam - General Respiratory [...] Cardiovascular extremities Edema present: severity 1+ - 4+: 2 01/06/2013 None Full Exam - General Abdomen abdominal exam Contour: protuberant 01/06/2013 None Full Exam - General Lymphatic neck nodes Overall: anterior cervical chain robina ign 01/06/2013 None Full Exam - General Lymphatic neck nodes Overall: posterior cervical chain be nign 01/06/2013 None Full Exam - General Musculoskeletal [...] General Psychiatric mood and affect Mood: anxious 01/06/2013 None Full Exam - General Psychiatric mood and affect Affect: mood congruent 01/06/2013 None Full Exam - ENT Neurologic orientation Overall: oriented to person, place a nd time 11/21/2012 None Full Exam - ENT [...] ENT Respiratory auscultation Overall: breath sounds clear bilater ally 11/21/2012 None Full Exam - ENT Respiratory [...] General Respiratory auscultation Overall: breath sounds clear bilater ally 10/28/2012 None Full Exam - General Respiratory [...] Cardiovascular extremities Edema present: severity 1+ - 4+: 2 10/28/2012 None Full Exam - General Abdomen abdominal exam Contour: protuberant 10/28/2012 None Full Exam - General Lymphatic neck nodes Overall: anterior cervical chain robina ign 10/28/2012 None Full Exam - General Lymphatic neck nodes Overall: posterior cervical chain be nign 10/28/2012 None Full Exam - General Musculoskeletal [...] General Psychiatric mood and affect Mood: anxious 10/28/2012 None Full Exam - General Psychiatric [...] General Psychiatric mood and affect Mood: anxious 09/30/2012 None Full Exam - General Psychiatric [...] General Respiratory auscultation Overall: breath sounds clear bilater ally 09/30/2012 None Full Exam - General Respiratory [...] Cardiovascular extremities Edema present: severity 1+ - 4+: 2 09/30/2012 None Full Exam - General Abdomen abdominal exam Contour: protuberant 09/30/2012 None Full Exam - General Lymphatic neck nodes Overall: anterior cervical chain robina ign 09/30/2012 None Full Exam - General Lymphatic neck nodes Overall: posterior cervical chain be nign 09/30/2012 None Full Exam - General Musculoskeletal [...] General Respiratory auscultation Overall: breath sounds clear bilater ally 08/14/2012 None Full Exam - General Respiratory [...] Cardiovascular extremities Edema present: severity 1+ - 4+: 2 08/14/2012 None Full Exam - General Abdomen abdominal exam Contour: protuberant 08/14/2012 None Full Exam - General Lymphatic neck nodes Overall: anterior cervical chain robina ign 08/14/2012 None Full Exam - General Lymphatic neck nodes Overall: posterior cervical chain be nign 08/14/2012 None Full Exam - General Musculoskeletal [...] General Psychiatric mood and affect Mood: anxious 08/14/2012 None Full Exam - General Psychiatric [...] General Respiratory auscultation Overall: breath sounds clear bilater ally 08/05/2012 None Full Exam - General Respiratory [...] Cardiovascular extremities Edema present: severity 1+ - 4+: 2 08/05/2012 None Full Exam - General Abdomen abdominal exam Contour: protuberant 08/05/2012 None Full Exam - General Lymphatic neck nodes Overall: anterior cervical chain robina ign 08/05/2012 None Full Exam - General Lymphatic neck nodes Overall: posterior cervical chain be nign 08/05/2012 None Full Exam - General Musculoskeletal [...] General Psychiatric mood and affect Mood: anxious 08/05/2012 None Full Exam - General Psychiatric mood and affect Affect: mood congruent 08/05/2012 None Full Exam - General Integument inspection of skin description of wound erythematous 08/05/2012 None Full Exam - General Integument inspection of skin description of wound indurated 08/05/2012 1-2+ pitting at the later al edge of the wound on the right [...] Lymphatic neck nodes Overall: anterior cervical chain robina ign 07/15/2012 None Full Exam - General Lymphatic neck nodes Overall: posterior cervical chain be nign 07/15/2012 None Full Exam - General Musculoskeletal [...] General Psychiatric mood and affect Mood: anxious 07/15/2012 None Full Exam - General Psychiatric mood and affect Affect: mood congruent 07/15/2012 None Full Exam - General Cardiovascular extremities Edema present: pitting 07/15/2012 None Full Exam - General Cardiovascular extremities Edema present: severity 1+ - 4+: 2 07/15/2012 None Full Exam - General [...] General Respiratory auscultation Overall: breath sounds clear bilater ally 07/15/2012 None Full Exam - General Respiratory [...] 05/03/2012 None Full Exam - General Eyes conjunctiva/eyelids Overall: conjunctiva clear 05/03/2012 None Full Exam - General Eyes pupils and irises Overall: pupils equal, round, reacti ve to light and accomodation 05/03/2012 None Full Exam - General Ears/Nose/Throat otoscopic exam Overall: external auditory canals clear 05/03/2012 None Full Exam - General Ears/Nose/Throat otoscopic exam Overall: tympanic membranes clear 05/03/2012 None Full Exam - General Ears/Nose/Throat oral cavity/pharynx/larynx Oropharynx: a normal exam 05/03/2012 None Full Exam - General Respiratory auscultation Overall: breath sounds clear bilater ally 05/03/2012 None Full Exam - General Respiratory [...] Cardiovascular extremities Edema present: severity 1+ - 4+: _ 03/25/2012 None Full Exam - General [...] affect 03/25/2012 None Full Exam - General 1995 Constitutional general appearance Development: well developed 03/25/2012 None Full Exam - General 1995 Constitutional general appearance Development: appears stated age [...] Cardiovascular extremities Edema present: severity 1+ - 4+: _ 03/12/2012 None Full Exam - General [...] Cardiovascular extremities Edema present: severity 1+ - 4+: 1 01/23/2012 None Full Exam - General [...] 1994 Chest/Breast breast and axillae palpation Axillae: non-tender 01/12/2012 None Full Exam - General 1994 Chest/Breast breast and axillae palpation Overall: breasts non- tender 01/12/2012 None Full Exam - General 1994 Chest/Breast breast and axillae palpation Overall: axillae non- tender 01/12/2012 None Full Exam - [...] 1994 Chest/Breast breast and axillae palpation Nipple: non-tender 01/12/2012 None Full Exam - General Respiratory respiratory effort/rhythm Overall: normal rate 12/25/2011 None Full Exam - General Ears/Nose/Throat oral cavity/pharynx/larynx Overall: oropharyngeal mucosa clear 12/25/2011 None Full Exam - General Lymphatic neck nodes Overall: anterior cervical chain robina ign 12/25/2011 None Full Exam - General Lymphatic neck nodes Overall: posterior cervical chain be nign 12/25/2011 None Full Exam - General Musculoskeletal [...] General Psychiatric mood and affect Mood: anxious 12/25/2011 None Full Exam - General Psychiatric mood and affect Affect: mood congruent 12/25/2011 None Full Exam - General Respiratory auscultation Overall: breath sounds clear bilater ally 12/25/2011 None Full Exam - General Respiratory [...] Lymphatic neck nodes Overall: anterior cervical chain robina ign 12/04/2011 None Full Exam - General Lymphatic neck nodes Overall: posterior cervical chain be nign 12/04/2011 None Full Exam - General Musculoskeletal [...] General Psychiatric mood and affect Mood: anxious 12/04/2011 None Full Exam - General Psychiatric mood and affect Affect: mood congruent 12/04/2011 None Full Exam - General Respiratory auscultation Overall: breath sounds clear bilater ally 12/04/2011 None Full Exam - General Respiratory [...] Cardiovascular extremities Edema present: severity 1+ - 4+: 2+ 12/04/2011 None Full Exam - General [...] General Respiratory auscultation Overall: breath sounds clear bilater ally 09/20/2011 None Full Exam - General Respiratory [...] Lymphatic neck nodes Overall: anterior cervical chain robina ign 09/20/2011 None Full Exam - General Lymphatic neck nodes Overall: posterior cervical chain be nign 09/20/2011 None Full Exam - General Musculoskeletal [...] General Psychiatric mood and affect Mood: anxious 09/20/2011 None Full Exam - General Psychiatric [...] 09/06/2011 None Full Exam - General Chest/Breast breast/chest inspection Overall: normal chest shape 09/06/2011 None [...] Lymphatic neck nodes Overall: anterior cervical chain robina ign 09/06/2011 None Full Exam - General Lymphatic neck nodes Overall: posterior cervical chain be nign 09/06/2011 None Full Exam - General Musculoskeletal [...] General Respiratory auscultation Overall: breath sounds clear bilater ally 09/06/2011 None Full Exam - General Respiratory [...] General Psychiatric mood and affect Mood: anxious 09/06/2011 None Full Exam - General Psychiatric mood and affect Affect: mood congruent 09/06/2011 None Full Exam - General Cardiovascular inspection of carotid pulses Overall: strong, bilaterally equal, no bruits 08/30/2011 None Full Exam - General Chest/Breast breast/chest inspection Overall: normal chest shape 08/30/2011 None [...] Lymphatic neck nodes Overall: anterior cervical chain robina ign 08/30/2011 None Full Exam - General Lymphatic neck nodes Overall: posterior cervical chain be nign 08/30/2011 None Full Exam - General Musculoskeletal [...] General Respiratory auscultation Overall: breath sounds clear bilater ally 08/30/2011 None Full Exam - General Respiratory [...] ENT Respiratory auscultation Overall: breath sounds clear bilater ally 08/23/2011 None Full Exam - ENT Cardiovascular [...] General Respiratory auscultation Overall: breath sounds clear bilater ally 05/04/2011 None Full Exam - General Respiratory [...] Lymphatic neck nodes Overall: anterior cervical chain robina ign 05/04/2011 None Full Exam - General Lymphatic neck nodes Overall: posterior cervical chain be nign 05/04/2011 None Full Exam - General Musculoskeletal [...] pupils and irises Overall: pupils equal, round, reacti ve to light and accomodation 05/04/2011 None Full [...] 05/04/2011 None Full Exam - General Chest/Breast breast/chest inspection Overall: normal chest shape 05/04/2011 None [...] pupils and irises Overall: pupils equal, round, reacti ve to light and accomodation 04/19/2011 None Full Exam - General Ears/Nose/Throat otoscopic exam Left tympanic membrane: air- fluid level 04/19/2011 None Full Exam - General Ears/Nose/Throat otoscopic exam Right tympanic membrane: air- fluid level 04/19/2011 None Full Exam - General [...] general appearance Overall: well nourished 04/19/2011 None Exam Name System Name It em Name Status Result Effective Dates Notes Full Exam - Dermatology Constitutional general appearance Overall: well nourished 05/02/2019 None Full Exam - Dermatology Constitutional general appearance Overall: well developed 05/02/2019 None Full Exam - Dermatology Constitutional general appearance Overall: in no acute distress 05/02/2019 None Full Exam - Dermatology Eyes conjunctiva/eyelids Overall: clear conjunctiva bilaterally 05/02/2019 None Full Exam - Dermatology Eyes conjunctiva/eyelids Overall: clear corneas 05/02/2019 None Full Exam - Dermatology Eyes conjunctiva/eyelids Overall: normal eyelids 05/02/2019 None Full Exam - Dermatology Ears/Nose/Throat lips/teeth/gingiva Overall: benign lips 05/02/2019 None Full Exam - Dermatology Ears/Nose/Throat oropharynx Overall: clear oral mucosa 05/02/2019 None Full Exam - Dermatology Respiratory respiratory effort/rhythm Overall: no retractions 05/02/2019 None Full Exam - Dermatology Respiratory respiratory effort/rhythm Overall: normal rate 05/02/2019 None Full Exam - Dermatology Musculoskeletal head and neck Overall: head atraumatic 05/02/2019 None Full Exam - Dermatology Psychiatric orientation Overall: oriented to person, place and time 05/02/2019 None Full Exam - Dermatology Psychiatric mood and affect Overall: normal mood and affect 05/02/2019 None Full Exam - Dermatology Integument insp & palp - right lower extremity Lesion: patch 05/02/2019 None Full Exam - Dermatology Integument insp & palp - right lower extremity Location: on the bustos 05/02/2019 5in x 4 in - hematoma with some mild erythema to the center Full Exam - General 1994 Constitutional general appearance Development: well developed 04/01/2019 None Full Exam - General 1994 Constitutional general appearance Development: appears stated age 0804/01/2019 None Full Exam - General 1994 Constitutional general appearance Overall: in no acute distress 04/01/2019 None Full Exam - General 1994 Constitutional general appearance Overall: well nourished 04/01/2019 None Full Exam - General 1994 Eyes pupils and irises Overall: pupils equal, round, reactive to light and accomodation 04/01/2019 None Full Exam - General 1994 Ears/Nose/Throat otoscopic exam Overall: external auditory canals clear 04/01/2019 None Full Exam - General 1994 Ears/Nose/Throat otoscopic exam Overall: tympanic membranes clear 04/01/2019 None Full Exam - General 1994 Ears/Nose/Throat oral cavity/pharynx/larynx Overall: oral mucosa clear 04/01/2019 None Full Exam - General 1995 Ears/Nose/Throat oral cavity/pharynx/larynx Overall: oropharyngeal mucosa clear 04/01/2019 None Full Exam - General 1995 Ears/Nose/Throat oral cavity/pharynx/larynx Overall: no masses 04/01/2019 None Full Exam - General 1994 Respiratory auscultation Overall: breath sounds clear bilaterally 04/01/2019 None Full Exam - General 1994 Respiratory respiratory effort/rhythm Overall: no retractions 04/01/2019 None Full Exam - General 1994 Respiratory respiratory effort/rhythm Overall: normal rate 04/01/2019 None Full Exam - General 1994 Cardiovascular extremities Overall: no clubbing 04/01/2019 None Full Exam - General 1994 Cardiovascular extremities Edema present: pitting 04/01/2019 None Full Exam - General 1994 Cardiovascular extremities Edema present: severity 1+ - 4+: 2+ 04/01/2019 None Full Exam - General 1994 Cardiovascular extremities Edema present: bilateral 04/01/2019 None Full Exam - General 1994 Cardiovascular auscultation of heart Overall: regular rate 04/01/2019 None Full Exam - General 1994 Cardiovascular auscultation of heart Overall: normal heart sounds 04/01/2019 None Full Exam - General 1994 Abdomen abdominal exam Overall: normal bowel sounds 04/01/2019 None Full Exam - General 1994 Psychiatric orientation/consciousness Overall: oriented to person, place and time 04/01/2019 None Full Exam - General 1994 Psychiatric mood and affect Overall: normal mood and affect 04/01/2019 None Full Exam - General 1994 Psychiatric mood and affect Mood: happy 04/01/2019 None Full Exam - General 1994 Abdomen abdominal exam Contour: rounded 04/01/2019 tender over upper abdomen near surgical incision site - small lipoma or omental hernia. Full Exam - General 1994 Constitutional general appearance Development: well developed 03/11/2019 None Full Exam - General 1994 Constitutional general appearance Development: appears stated age 0703/11/2019 None Full Exam - General 1994 Constitutional general appearance Overall: in no acute distress 03/11/2019 None Full Exam - General 1994 Constitutional general appearance Overall: well nourished 03/11/2019 None Full Exam - General 1994 Eyes pupils and irises Overall: pupils equal, round, reactive to light and accomodation 03/11/2019 None Full Exam - General 1994 Ears/Nose/Throat otoscopic exam Overall: external auditory canals clear 03/11/2019 None Full Exam - General 1994 Ears/Nose/Throat otoscopic exam Overall: tympanic membranes clear 03/11/2019 None Full Exam - General 1994 Ears/Nose/Throat oral cavity/pharynx/larynx Overall: oral mucosa clear 03/11/2019 None Full Exam - General 1994 Ears/Nose/Throat oral cavity/pharynx/larynx Overall: oropharyngeal mucosa clear 03/11/2019 None Full Exam - General 1994 Ears/Nose/Throat oral cavity/pharynx/larynx Overall: no masses 03/11/2019 None Full Exam - General 1994 Respiratory respiratory effort/rhythm Overall: no retractions 03/11/2019 None Full Exam - General 1994 Respiratory respiratory effort/rhythm Overall: normal rate 03/11/2019 None Full Exam - General 1994 Cardiovascular extremities Overall: no clubbing 03/11/2019 None Full Exam - General 1994 Cardiovascular extremities Edema present: pitting 03/11/2019 None Full Exam - General 1994 Cardiovascular extremities Edema present: severity 1+ - 4+: 2+ 03/11/2019 None Full Exam - General 1994 Cardiovascular extremities Edema present: bilateral 03/11/2019 None Full Exam - General 1994 Cardiovascular auscultation of heart Overall: regular rate 03/11/2019 None Full Exam - General 1994 Cardiovascular auscultation of heart Overall: normal heart sounds 03/11/2019 None Full Exam - General 1994 Abdomen abdominal exam Overall: no tenderness 03/11/2019 None Full Exam - General 1994 Abdomen abdominal exam Overall: normal bowel sounds 03/11/2019 None Full Exam - General 1994 Lymphatic neck nodes Overall: anterior cervical chain benign 03/11/2019 None Full Exam - General 1994 Lymphatic neck nodes Overall: posterior cervical chain benign 03/11/2019 None Full Exam - General 1994 Integument inspection of skin Overall: no rash, lesions 03/11/2019 None Full Exam - General 1994 Psychiatric orientation/consciousness Overall: oriented to person, place and time 03/11/2019 None Full Exam - General 1994 Psychiatric mood and affect Overall: normal mood and affect 03/11/2019 None Full Exam - General 1994 Psychiatric mood and affect Mood: happy 03/11/2019 None Full Exam - General 1994 Respiratory auscultation Upper lung field: expiratory wheezes 03/11/2019 None Full Exam - General 1994 Respiratory auscultation Lower lung field: expiratory wheezes 03/11/2019 None Full Exam - General 1994 Musculoskeletal head and neck Overall: head atraumatic 03/11/2019 None Full Exam - General 1994 Musculoskeletal head and neck Overall: cervical spine benign 03/11/2019 None Full Exam - General 1994 Musculoskeletal spine, ribs and pelvis Posture: lordosis 03/11/2019 None Full Exam - General 1994 Musculoskeletal spine, ribs and pelvis Sacroiliac joints: tender right sacroiliac joint 03/11/2019 None Full Exam - General 1994 Musculoskeletal spine, ribs and pelvis Sacroiliac joints: tender left sacroiliac joint 03/11/2019 None Full Exam - General 1994 Constitutional [...] Cardiovascular extremities Edema present: severity 1+ - 4+: 2+ 09/03/2018 None Full Exam - General [...] Cardiovascular extremities Edema present: severity 1+ - 4+: 2+ 05/29/2018 None Full Exam - General [...] Cardiovascular extremities Edema present: severity 1+ - 4+: 2+ 04/25/2018 None Full Exam - General [...] None Full Exam - General 1994 Eyes conjunctiva/eyelids Overall: eyelids normal 02/06/2018 None Full Exam - General 1994 Eyes conjunctiva/eyelids Overall: cornea clear 02/06/2018 None Full Exam - General 1994 Eyes conjunctiva/eyelids Overall: conjunctiva clear 02/06/2018 None Full Exam [...] Cardiovascular extremities Edema present: severity 1+ - 4+: 2+ 01/23/2018 None Full Exam - General [...] Cardiovascular extremities Edema present: severity 1+ - 4+: 2+ 09/12/2017 None Full Exam - General [...] ENT Respiratory auscultation Overall: breath sounds clear bilater ally 08/31/2017 None Full Exam - ENT Cardiovascular [...] Neurologic orientation Overall: oriented to person, place a nd time 08/31/2017 None Full Exam - ENT Ears/Nose/Throat lips/teeth/gingiva Overall: benign lips 08/31/2017 None Full Exam - ENT Ears/Nose/Throat oropharynx Posterior Pharynx: clear post nasal drainage 08/31/2017 None Full Exam - ENT Respiratory auscultation Diffuse: diminished 08/31/2017 None Full Exam - ENT Constitutional [...] ENT Respiratory auscultation Overall: breath sounds clear bilater ally 08/09/2017 None Full Exam - ENT Cardiovascular [...] Neurologic orientation Overall: oriented to person, place a nd time 08/09/2017 None Full Exam - ENT [...] Cardiovascular extremities Edema present: severity 1+ - 4+: 2+ 05/07/2017 None Full Exam - General [...] None Full Exam - General 1994 Eyes conjunctiva/eyelids Overall: conjunctiva clear 04/12/2017 None Full Exam - General 1994 Eyes conjunctiva/eyelids Overall: eyelids normal 04/12/2017 None Full Exam [...] Cardiovascular extremities Edema present: severity 1+ - 4+: 2+ 02/05/2017 None Full Exam - General [...] Cardiovascular extremities Edema present: severity 1+ - 4+: 2+ 02/02/2017 None Full Exam - General [...] ENT Respiratory auscultation Overall: breath sounds clear bilater ally 01/15/2017 None Full Exam - ENT Cardiovascular [...] Neurologic orientation Overall: oriented to person, place a nd time 01/15/2017 None Full Exam - ENT [...] Cardiovascular extremities Edema present: severity 1+ - 4+: 2+ 01/04/2017 None Full Exam - General [...] Cardiovascular extremities Edema present: severity 1+ - 4+: 2+ 09/07/2016 None Full Exam - General [...] Cardiovascular extremities Edema present: severity 1+ - 4+: 2+ 07/06/2016 None Full Exam - General [...] Cardiovascular extremities Edema present: severity 1+ - 4+: 2+ 06/08/2016 None Full Exam - General [...] Cardiovascular extremities Edema present: severity 1+ - 4+: 2+ 04/06/2016 None Full Exam - General [...] Cardiovascular extremities Edema present: severity 1+ - 4+: _ 03/09/2016 None Full Exam - General [...] Cardiovascular extremities Edema present: severity 1+ - 4+: _ 01/18/2016 None Full Exam - General [...] Abdomen abdominal exam Lower quadrant: no rebound tendernes s 09/09/2015 None Full Exam - General 1994 [...] Cardiovascular extremities Edema present: severity 1+ - 4+: 3 09/09/2015 None Full Exam - General [...] Cardiovascular extremities Edema present: severity 1+ - 4+: _ 12/25/2014 None Full Exam - General [...] Cardiovascular extremities Edema present: severity 1+ - 4+: _ 10/13/2014 None Full Exam - General [...] Cardiovascular extremities Edema present: severity 1+ - 4+: _ 08/28/2014 None Full Exam - General [...] Cardiovascular extremities Edema present: severity 1+ - 4+: _ 04/16/2014 None Full Exam - General [...] General Respiratory auscultation Overall: breath sounds clear bilater ally 01/21/2014 None Full Exam - General Respiratory [...] Cardiovascular extremities Edema present: severity 1+ - 4+: 2 01/21/2014 None Full Exam - General Abdomen abdominal exam Contour: protuberant 01/21/2014 None Full Exam - General Lymphatic neck nodes Overall: anterior cervical chain robina ign 01/21/2014 None Full Exam - General Lymphatic neck nodes Overall: posterior cervical chain be nign 01/21/2014 None Full Exam - General Musculoskeletal [...] General Psychiatric mood and affect Mood: anxious 01/21/2014 None Full Exam - General Psychiatric [...] and Head palpation Overall: no induration, no tendernes s 01/07/2014 None Full Exam - ENT Respiratory inspection Overall: no retractions 01/07/2014 None Full Exam - ENT Respiratory inspection Overall: normal rate None Full Exam - ENT Respiratory auscultation Overall: breath sounds clear bilater ally 01/07/2014 None Full Exam - ENT Cardiovascular auscultation of heart Overall: regular rate 01/07/2014 None Full Exam - ENT Cardiovascular auscultation of heart Overall: normal heart sounds 01/07/2014 None Full Exam - ENT Lymphatic palpation of lymph nodes Overall: shotty lymphadenopathy 01/07/2014 None Full Exam - ENT Neurologic orientation Overall: oriented to person, place a nd time 01/07/2014 None Full Exam - ENT [...] Ears/Nose/Throat otoscopic exam Left external auditory canal: partia l cerumen occlusion 12/26/2013 None Full Exam - ENT Ears/Nose/Throat otoscopic exam Right external auditory canal: parti al cerumen occlusion 12/26/2013 None Full Exam - ENT Face and Head inspection of face/head Overall: no scars, lesions, masses 12/26/2013 None Full Exam - ENT Respiratory inspection Overall: no retractions 12/26/2013 None Full Exam - ENT Respiratory inspection Overall: normal rate 09/2013 None Full Exam - ENT Respiratory auscultation Overall: breath sounds clear bilater ally 12/26/2013 None Full Exam - ENT Cardiovascular [...] Neurologic orientation Overall: oriented to person, place a nd time 12/26/2013 None Full Exam - ENT [...] Neurologic orientation Overall: oriented to person, place a nd time 11/12/2013 None Full Exam - ENT Lymphatic palpation of lymph nodes Overall: shotty lymphadenopathy 11/12/2013 None Full Exam - ENT Cardiovascular auscultation of heart Overall: regular rate 11/12/2013 None Full Exam - ENT Cardiovascular auscultation of heart Overall: normal heart sounds 11/12/2013 None Full Exam - ENT Respiratory auscultation Overall: breath sounds clear bilater ally 11/12/2013 None Full Exam - ENT Respiratory [...] and Head palpation Overall: no induration, no tendernes s 11/12/2013 None Full Exam - ENT Ears/Nose/Throat otoscopic exam Overall: external auditory canals normal 11/12/2013 None Full Exam - ENT Ears/Nose/Throat otoscopic exam Overall: tympanic membranes normal 11/12/2013 None Full Exam - ENT Ears/Nose/Throat oropharynx Overall: oral mucosa clear 11/12/2013 None Full Exam - ENT Neurologic orientation Overall: oriented to person, place a nd time 10/09/2013 None Full Exam - ENT [...] ENT Respiratory auscultation Overall: breath sounds clear bilater ally 10/09/2013 None Full Exam - ENT Respiratory [...] Ears/Nose/Throat otoscopic exam Left external auditory canal: partia l cerumen occlusion 10/09/2013 None Full Exam - ENT Ears/Nose/Throat otoscopic exam Right external auditory canal: parti al cerumen occlusion 10/09/2013 None Full Exam - [...] General Respiratory auscultation Overall: breath sounds clear bilater ally 04/03/2013 None Full Exam - General Respiratory [...] Cardiovascular extremities Edema present: severity 1+ - 4+: 2 04/03/2013 None Full Exam - General Abdomen abdominal exam Contour: protuberant 04/03/2013 None Full Exam - General Lymphatic neck nodes Overall: anterior cervical chain robina ign 04/03/2013 None Full Exam - General Lymphatic neck nodes Overall: posterior cervical chain be nign 04/03/2013 None Full Exam - General Musculoskeletal [...] General Psychiatric mood and affect Mood: anxious 04/03/2013 None Full Exam - General Psychiatric [...] General Respiratory auscultation Overall: breath sounds clear bilater ally 01/06/2013 None Full Exam - General Respiratory [...] Cardiovascular extremities Edema present: severity 1+ - 4+: 2 01/06/2013 None Full Exam - General Abdomen abdominal exam Contour: protuberant 01/06/2013 None Full Exam - General Lymphatic neck nodes Overall: anterior cervical chain robina ign 01/06/2013 None Full Exam - General Lymphatic neck nodes Overall: posterior cervical chain be nign 01/06/2013 None Full Exam - General Musculoskeletal [...] General Psychiatric mood and affect Mood: anxious 01/06/2013 None Full Exam - General Psychiatric mood and affect Affect: mood congruent 01/06/2013 None Full Exam - ENT Neurologic orientation Overall: oriented to person, place a nd time 11/21/2012 None Full Exam - ENT [...] ENT Respiratory auscultation Overall: breath sounds clear bilater ally 11/21/2012 None Full Exam - ENT Respiratory [...] General Respiratory auscultation Overall: breath sounds clear bilater ally 10/28/2012 None Full Exam - General Respiratory [...] Cardiovascular extremities Edema present: severity 1+ - 4+: 2 10/28/2012 None Full Exam - General Abdomen abdominal exam Contour: protuberant 10/28/2012 None Full Exam - General Lymphatic neck nodes Overall: anterior cervical chain robina ign 10/28/2012 None Full Exam - General Lymphatic neck nodes Overall: posterior cervical chain be nign 10/28/2012 None Full Exam - General Musculoskeletal [...] General Psychiatric mood and affect Mood: anxious 10/28/2012 None Full Exam - General Psychiatric [...] General Psychiatric mood and affect Mood: anxious 09/30/2012 None Full Exam - General Psychiatric [...] General Respiratory auscultation Overall: breath sounds clear bilater ally 09/30/2012 None Full Exam - General Respiratory [...] Cardiovascular extremities Edema present: severity 1+ - 4+: 2 09/30/2012 None Full Exam - General Abdomen abdominal exam Contour: protuberant 09/30/2012 None Full Exam - General Lymphatic neck nodes Overall: anterior cervical chain robina ign 09/30/2012 None Full Exam - General Lymphatic neck nodes Overall: posterior cervical chain be nign 09/30/2012 None Full Exam - General Musculoskeletal [...] General Respiratory auscultation Overall: breath sounds clear bilater ally 08/14/2012 None Full Exam - General Respiratory [...] Cardiovascular extremities Edema present: severity 1+ - 4+: 2 08/14/2012 None Full Exam - General Abdomen abdominal exam Contour: protuberant 08/14/2012 None Full Exam - General Lymphatic neck nodes Overall: anterior cervical chain robina ign 08/14/2012 None Full Exam - General Lymphatic neck nodes Overall: posterior cervical chain be nign 08/14/2012 None Full Exam - General Musculoskeletal [...] General Psychiatric mood and affect Mood: anxious 08/14/2012 None Full Exam - General Psychiatric [...] General Respiratory auscultation Overall: breath sounds clear bilater ally 08/05/2012 None Full Exam - General Respiratory [...] Cardiovascular extremities Edema present: severity 1+ - 4+: 2 08/05/2012 None Full Exam - General Abdomen abdominal exam Contour: protuberant 08/05/2012 None Full Exam - General Lymphatic neck nodes Overall: anterior cervical chain robina ign 08/05/2012 None Full Exam - General Lymphatic neck nodes Overall: posterior cervical chain be nign 08/05/2012 None Full Exam - General Musculoskeletal [...] General Psychiatric mood and affect Mood: anxious 08/05/2012 None Full Exam - General Psychiatric mood and affect Affect: mood congruent 08/05/2012 None Full Exam - General Integument inspection of skin description of wound erythematous 08/05/2012 None Full Exam - General Integument inspection of skin description of wound indurated 08/05/2012 1-2+ pitting at the later al edge of the wound on the right [...] Lymphatic neck nodes Overall: anterior cervical chain robina ign 07/15/2012 None Full Exam - General Lymphatic neck nodes Overall: posterior cervical chain be nign 07/15/2012 None Full Exam - General Musculoskeletal [...] General Psychiatric mood and affect Mood: anxious 07/15/2012 None Full Exam - General Psychiatric mood and affect Affect: mood congruent 07/15/2012 None Full Exam - General Cardiovascular extremities Edema present: pitting 07/15/2012 None Full Exam - General Cardiovascular extremities Edema present: severity 1+ - 4+: 2 07/15/2012 None Full Exam - General [...] General Respiratory auscultation Overall: breath sounds clear bilater ally 07/15/2012 None Full Exam - General Respiratory [...] 05/03/2012 None Full Exam - General Eyes conjunctiva/eyelids Overall: conjunctiva clear 05/03/2012 None Full Exam - General Eyes pupils and irises Overall: pupils equal, round, reacti ve to light and accomodation 05/03/2012 None Full Exam - General Ears/Nose/Throat otoscopic exam Overall: external auditory canals clear 05/03/2012 None Full Exam - General Ears/Nose/Throat otoscopic exam Overall: tympanic membranes clear 05/03/2012 None Full Exam - General Ears/Nose/Throat oral cavity/pharynx/larynx Oropharynx: a normal exam 05/03/2012 None Full Exam - General Respiratory auscultation Overall: breath sounds clear bilater ally 05/03/2012 None Full Exam - General Respiratory [...] Cardiovascular extremities Edema present: severity 1+ - 4+: _ 03/25/2012 None Full Exam - General [...] Cardiovascular extremities Edema present: severity 1+ - 4+: _ 03/12/2012 None Full Exam - General [...] Cardiovascular extremities Edema present: severity 1+ - 4+: 1 01/23/2012 None Full Exam - General [...] 1994 Chest/Breast breast and axillae palpation Axillae: non-tender 01/12/2012 None Full Exam - General 1994 Chest/Breast breast and axillae palpation Overall: breasts non- tender 01/12/2012 None Full Exam - General 1994 Chest/Breast breast and axillae palpation Overall: axillae non- tender 01/12/2012 None Full Exam - [...] 1994 Chest/Breast breast and axillae palpation Nipple: non-tender 01/12/2012 None Full Exam - General Respiratory respiratory effort/rhythm Overall: normal rate 12/25/2011 None Full Exam - General Ears/Nose/Throat oral cavity/pharynx/larynx Overall: oropharyngeal mucosa clear 12/25/2011 None Full Exam - General Lymphatic neck nodes Overall: anterior cervical chain robina ign 12/25/2011 None Full Exam - General Lymphatic neck nodes Overall: posterior cervical chain be nign 12/25/2011 None Full Exam - General Musculoskeletal [...] General Psychiatric mood and affect Mood: anxious 12/25/2011 None Full Exam - General Psychiatric mood and affect Affect: mood congruent 12/25/2011 None Full Exam - General Respiratory auscultation Overall: breath sounds clear bilater ally 12/25/2011 None Full Exam - General Respiratory [...] Lymphatic neck nodes Overall: anterior cervical chain robina ign 12/04/2011 None Full Exam - General Lymphatic neck nodes Overall: posterior cervical chain be nign 12/04/2011 None Full Exam - General Musculoskeletal [...] General Psychiatric mood and affect Mood: anxious 12/04/2011 None Full Exam - General Psychiatric mood and affect Affect: mood congruent 12/04/2011 None Full Exam - General Respiratory auscultation Overall: breath sounds clear bilater ally 12/04/2011 None Full Exam - General Respiratory [...] Cardiovascular extremities Edema present: severity 1+ - 4+: 2+ 12/04/2011 None Full Exam - General [...] General Respiratory auscultation Overall: breath sounds clear bilater ally 09/20/2011 None Full Exam - General Respiratory [...] Lymphatic neck nodes Overall: anterior cervical chain robina ign 09/20/2011 None Full Exam - General Lymphatic neck nodes Overall: posterior cervical chain be nign 09/20/2011 None Full Exam - General Musculoskeletal [...] General Psychiatric mood and affect Mood: anxious 09/20/2011 None Full Exam - General Psychiatric [...] 09/06/2011 None Full Exam - General Chest/Breast breast/chest inspection Overall: normal chest shape 09/06/2011 None [...] Lymphatic neck nodes Overall: anterior cervical chain robina ign 09/06/2011 None Full Exam - General Lymphatic neck nodes Overall: posterior cervical chain be nign 09/06/2011 None Full Exam - General Musculoskeletal [...] General Respiratory auscultation Overall: breath sounds clear bilater ally 09/06/2011 None Full Exam - General Respiratory [...] General Psychiatric mood and affect Mood: anxious 09/06/2011 None Full Exam - General Psychiatric mood and affect Affect: mood congruent 09/06/2011 None Full Exam - General Cardiovascular inspection of carotid pulses Overall: strong, bilaterally equal, no bruits 08/30/2011 None Full Exam - General Chest/Breast breast/chest inspection Overall: normal chest shape 08/30/2011 None [...] Lymphatic neck nodes Overall: anterior cervical chain robina ign 08/30/2011 None Full Exam - General Lymphatic neck nodes Overall: posterior cervical chain be nign 08/30/2011 None Full Exam - General Musculoskeletal [...] General Respiratory auscultation Overall: breath sounds clear bilater ally 08/30/2011 None Full Exam - General Respiratory [...] ENT Respiratory auscultation Overall: breath sounds clear bilater ally 08/23/2011 None Full Exam - ENT Cardiovascular [...] General Respiratory auscultation Overall: breath sounds clear bilater ally 05/04/2011 None Full Exam - General Respiratory [...] Lymphatic neck nodes Overall: anterior cervical chain robina ign 05/04/2011 None Full Exam - General Lymphatic neck nodes Overall: posterior cervical chain be nign 05/04/2011 None Full Exam - General Musculoskeletal [...] pupils and irises Overall: pupils equal, round, reacti ve to light and accomodation 05/04/2011 None Full [...] 05/04/2011 None Full Exam - General Chest/Breast breast/chest inspection Overall: normal chest shape 05/04/2011 None [...] pupils and irises Overall: pupils equal, round, reacti ve to light and accomodation 04/19/2011 None Full Exam - General Ears/Nose/Throat otoscopic exam Left tympanic membrane: air- fluid level 04/19/2011 None Full Exam - General Ears/Nose/Throat otoscopic exam Right tympanic membrane: air- fluid level 04/19/2011 None Full Exam - General [...] general appearance Overall: well nourished 04/19/2011 None History of Present Illness Symptom Name Status Resu lt Effective Date Notes hypertension Quality shira tania hypertension 05/29/2018 None hypertension Onset and Resolution ongoing 05/29/2018 None hypertension Onset of Symptom during adulthood 05/29/2018 None hypertension Blood Pressure Values not checking blood pressure at home 05/29/2018 None hypertension Alleviating Factors medication 05/29/2018 None hypertension Pertinent Findings decreased energy 05/29/2018 None hypertension Pertinent Findings dizziness 05/29/2018 at times when she first g ets up in the mornings hypertension Pertinent Findings dyspnea 05/29/2018 occasionally- wears oxyge n at night hypertension Pertinent Findings edema 05/29/2018 -wears bilateral hose 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 05/29/2018 None hypothyroid Onset and Resolution ongoing 05/29/2018 None hypothyroid Alleviating Factors medication 05/29/2018 None hypertension Quality chr onic 05/29/2018 None hyperlipidemia Onset and Resolution gradual in onset 05/29/2018 None hyperlipidemia Onset of Symptom during adulthood 05/29/2018 None hyperlipidemia Alleviating Factors medication 05/29/2018 None hyperlipidemia Exacerbating Factors diet 05/29/2018 None low back pain Location o n both sides 05/29/2018 None low back pain Quality ac ministerio 05/29/2018 None low back pain Onset and Resolution ongoing 05/29/2018 None low back pain Exacerbating Factors standing or walking 05/29/2018 None low back pain Quality in termittent 05/29/2018 None low back pain Alleviating Factors [...] Annual Medicare Wellness Exam Blood Pressure (self reported) diagnosed with hypertension 04/25/20 18 None Annual Medicare Wellness Exam Choles terol (self reported) diagnosed with elevated cholesterol 04/25/2018 None Annual Medicare Wellness Exam Hemagl obin A-1C (self reported) don't know 04/25/2018 No ne Annual Medicare Wellness Exam Hemagl obin A-1C (self reported) never checked 04/25/2018 None Annual Medicare Wellness Exam Hours of Sleep 5-6 04/25/2018 None Annual Medicare Wellness Exam Intera ction with Friends no 04/25/2018 None Annual Medicare Wellness Exam Exerci se Habits exercises 5 days per week 04/25/2018 None Annual Medicare Wellness Exam Exerci se Habits exercises 15 minutes per day 04/25/2018 None Annual Medicare Wellness Exam Descri be Your Health fair 04/25/2018 None Annual Medicare Wellness Exam Depres omar (last 6 months) some of the time 04/25/2018 None Annual Medicare Wellness Exam Depres omar or Hopelessness some of the time 04/25/2018 None Annual Medicare Wellness Exam Intere sts & Pleasure almost never 04/25/2018 None Annual Medicare Wellness Exam Stress almost never 04/25/2018 None Annual Medicare Wellness Exam Handli ng Stress usually sheldon effectively 04/25/2018 None Annual Medicare Wellness Exam Life S atisfaction satisfied 04/25/2018 Non e Annual Medicare Wellness Exam Social & Emotional Support always 04/25/2018 None Annual Medicare Wellness Exam Smokin g and Tobacco Use non smoker 04/25/2018 No ne Annual Medicare Wellness Exam Sun Exposure protects skin when outdoors: yes 04/25/2018 None Annual Medicare Wellness Exam Motor Vehicle Safety always fastens seat belt: yes 2017 None Annual Medicare Wellness Exam Motor Vehicle Safety drives after drinking: no 04/25/2018 None Annual Medicare Wellness Exam Motor Vehicle Safety rides with someone who has been drinking: no 04/25/2018 None Annual Medicare Wellness Exam Nutrition servings of fried food / high fat foods per day: 0-1 04/25/2018 None Annual Medicare Wellness Exam Nutrition [...] Exacerbating Factors Q-tips 02/06/2018 None hypertension Quality shira marin hypertension 01/23/2018 None hypertension Onset and Resolution ongoing 01/23/2018 None hypertension Onset of Symptom during adulthood 01/23/2018 None hypertension Blood Pressure Values not checking blood pressure at home 01/23/2018 None hypertension Alleviating Factors medication 01/23/2018 None hypertension Pertinent Findings dizziness 01/23/2018 at times when she first g ets up in the mornings hypertension Pertinent Findings dyspnea 01/23/2018 occasionally- wears oxyge n at night hypertension Pertinent Findings edema 01/23/2018 None hypothyroid Onset and Resolution ongoing 01/23/2018 None hypothyroid Alleviating Factors medication 01/23/2018 None 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 None hypertension Pertinent Findings decreased energy 01/23/2018 None cough Quality acute 09/26/2017 None cough Quality intermitte nt 09/26/2017 None cough Quality productive 09/26/2017 None cough Onset and Resolution sudden in onset 09/26/2017 None cough Onset and Resolution ongoing 09/26/2017 None cough Pertinent Findings chills 09/26/2017 -states that she always f eels cold cough Quality improving 09/26/2017 None cough Onset of Symptom 1 .5 months ago 09/26/2017 None cough Frequency of Episodes decreasing 09/26/2017 None hypertension Quality shira marin hypertension 09/12/2017 None hypertension Onset and Resolution ongoing 09/12/2017 None hypertension Onset of Symptom during adulthood 09/12/2017 None hypertension Alleviating Factors medication 09/12/2017 None hypertension Pertinent Findings dizziness 09/12/2017 when she first gets up in the mornings hypertension Pertinent Findings dyspnea 09/12/2017 occasionally- wears oxyge n at night hypertension Pertinent Findings edema 09/12/2017 None hypothyroid Onset and Resolution ongoing 09/12/2017 None hypothyroid Alleviating Factors medication 09/12/2017 None cough Quality acute 09/12/2017 None cough Quality intermitte nt 09/12/2017 None cough Onset and Resolution sudden in onset 09/12/2017 None cough Onset and Resolution ongoing 09/12/2017 None cough Onset of Symptom 1 + months ago 09/12/2017 None cough Pertinent Findings facial pain 09/12/2017 None cough Pertinent Findings chills 09/12/2017 -states that she always f eels cold cough Quality productive 09/12/2017 None cough Pertinent Findings sputum production 09/12/2017 (yellow) cough Pertinent Findings post nasal drip 09/12/2017 (clear) hypertension Blood Pressure Values not checking blood pressure at home 09/12/2017 None cough Quality acute 08/31/2017 None cough Quality intermitte nt 08/31/2017 None cough Onset and Resolution sudden [...] Findings hoarseness 08/09/2017 None cough Quality acute 08/09/2017 None cough Quality intermitte nt 08/09/2017 None cough Onset and Resolution sudden [...] known associated factors 08/09/2017 None hypertension Quality int ermittent 05/07/2017 None hypertension Quality shira tania hypertension 05/07/2017 None hypertension Onset and Resolution ongoing 05/07/2017 None hypertension Onset of Symptom during adulthood 05/07/2017 None hypertension Alleviating Factors medication 05/07/2017 None hypertension Pertinent Findings dizziness 05/07/2017 occasioinally- in the mor nings when she first wakes up hypertension Pertinent Findings dyspnea 05/07/2017 occasionally- wears oxyge n at night hypertension Pertinent Findings edema 05/07/2017 None hypothyroid Onset and Resolution ongoing 05/07/2017 None hypothyroid Alleviating Factors medication 05/07/2017 None knee pain Location on th e left 05/07/2017 None knee pain Quality interm ittent 05/07/2017 None knee pain Onset and Resolution [...] Blood Glucose (self reported) don't know 04/12/2017 No ne Annual Medicare Wellness Exam Blood Pressure (self reported) low / normal (120/80) 04/12/2017 None Annual Medicare Wellness Exam Choles terol (self reported) desireable (below 200) 04/12/2017 None Annual Medicare Wellness Exam Depres omar (last 6 months) some of the time 04/12/2017 None Annual Medicare Wellness Exam Depres omar or Hopelessness almost never 04/12/2017 None Annual Medicare Wellness Exam Descri be Your Health good 04/12/2017 None Annual Medicare Wellness Exam Exerci se Habits exercises 3 days per week 04/12/2017 None Annual Medicare Wellness Exam Exerci se Habits exercises 30 minutes per day 04/12/2017 None Annual Medicare Wellness Exam Handli ng Stress usually sheldon effectively 04/12/2017 None Annual Medicare Wellness Exam Hemagl obin A-1C (self reported) don't know 04/12/2017 No ne Annual Medicare Wellness Exam Hours of Sleep 6 04/12/2017 None Annual Medicare Wellness Exam Intera ction with Friends yes 04/12/2017 None Annual Medicare Wellness Exam Intere sts & Pleasure some of the time 04/12/2017 None Annual Medicare Wellness Exam Life S atisfaction satisfied 04/12/2017 Non e Annual Medicare Wellness Exam Motor Vehicle Safety always fastens seat belt: y 04/12/20 17 None Annual Medicare Wellness Exam Motor Vehicle Safety drives after drinking: nn 04/12/2017 None Annual Medicare Wellness Exam Motor Vehicle Safety rides with someone who has been drinking: n 04/12/2017 None Annual Medicare Wellness Exam Nutrition servings of fried food / high fat foods per day: 0 04/12/2017 None Annual Medicare Wellness Exam Nutrition servings of high fiber / whole grain per day: 1 04/12/2017 None Annual Medicare Wellness Exam Nutrition servings of vegetables / fruit per day: 2 04/12/2017 None Annual Medicare Wellness Exam Smokin g and Tobacco Use non smoker 04/12/2017 No ne Annual Medicare Wellness Exam Social & Emotional Support always 04/12/2017 None Annual Medicare Wellness Exam Stress most of the time 04/12/2017 None Annual Medicare Wellness Exam Sun Exposure protects skin when outdoors: y 04/12/2017 None cough Location in the naresh ng 02/05/2017 None cough Location in the th roat 02/05/2017 None cough Quality acute 02/05/2017 None cough Onset and Resolution ongoing 02/05/2017 None cough Onset of Symptom 2 weeks ago 02/05/2017 None cough Limitation on Activities does not limit activities 02/05/2017 None cough Frequency of Episodes unchanged 02/05/2017 None cough Triggers known all ergens 02/05/2017 None cough Pertinent Findings Denies chest discomfort 02/05/2017 None cough Pertinent Findings Denies dyspnea 02/05/2017 None cough Pertinent Findings Denies fever 02/05/2017 None cough Pertinent Findings nasal congestion 02/05/2017 None cough Location in the naresh ng 02/02/2017 None cough Location in the th roat 02/02/2017 None cough Quality acute 02/02/2017 None cough Onset and Resolution ongoing 02/02/2017 None cough Onset of Symptom 2 weeks ago 02/02/2017 None cough Limitation on Activities does not limit activities 02/02/2017 None cough Frequency of Episodes unchanged 02/02/2017 None cough Triggers known all ergens 02/02/2017 None cough Pertinent Findings Denies chest [...] urgency 02/02/2017 None cough Location in the th roat 01/15/2017 None cough Location in the naresh ng 01/15/2017 None cough Quality acute 01/15/2017 None cough Onset and Resolution ongoing 01/15/2017 None cough Onset of Symptom 2 weeks ago 01/15/2017 None cough Limitation on Activities does not limit activities 01/15/2017 None cough Frequency of Episodes unchanged 01/15/2017 None cough Triggers known all ergens 01/15/2017 None cough Pertinent Findings Denies chest discomfort 01/15/2017 None cough Pertinent Findings Denies dyspnea 01/15/2017 None cough Pertinent Findings Denies fever 01/15/2017 None cough Pertinent Findings nasal congestion 01/15/2017 None hypertension Quality int ermittent 01/04/2017 None hypertension Onset and Resolution ongoing 01/04/2017 None hypertension Blood Pressure Values patient checking blood pressure at home - did not bring in readings 01/04/2017 None hypertension Alleviating Factors medication 01/04/2017 None hypertension Pertinent Findings dizziness 01/04/2017 occasioinally- in the mor nings when she first wakes up hypertension Pertinent Findings dyspnea 01/04/2017 occasionally- wears oxyge n at night hypertension Pertinent Findings edema 01/04/2017 wears bilateral knee high madi hose hypothyroid Onset and Resolution ongoing 01/04/2017 None hypothyroid Alleviating Factors medication 01/04/2017 None knee pain Location on th e left 01/04/2017 None knee pain Quality worsen ing 01/04/2017 None knee pain Onset and Resolution gradual in onset 01/04/2017 None knee pain Quality interm ittent 01/04/2017 None knee pain Frequency of Episodes [...] pain with movement 01/04/2017 None hypertension Quality shira tania hypertension 01/04/2017 None hypertension Onset of Symptom during adulthood 01/04/2017 None hypertension Quality int ermittent 09/07/2016 None hypertension Onset and Resolution ongoing 09/07/2016 None hypertension Blood Pressure Values patient checking blood pressure at home - did not bring in readings 09/07/2016 pt reports that occasionally her lbood p ressure will be in the 180's/90's - hypertension Pertinent Findings dizziness 09/07/2016 occasioinally hypertension Pertinent Findings edema 09/07/2016 wears bilateral knee high madi hose hypertension Alleviating Factors medication 09/07/2016 None hypothyroid Onset and Resolution ongoing 09/07/2016 None hypothyroid Alleviating Factors medication 09/07/2016 None hypertension Pertinent Findings dyspnea 09/07/2016 occasionally- wears oxyge n at night gait abnormality Quality unsteady 09/07/2016 None gait abnormality Onset and Resolution ongoing 09/07/2016 None hypertension Quality int ermittent 07/06/2016 None hypertension Onset and Resolution ongoing 07/06/2016 None hypertension Blood Pressure Values patient checking blood pressure at home - did not bring in readings 07/06/2016 None hypertension Pertinent Findings Denies dizziness 07/06/2016 None hypertension Pertinent Findings edema 07/06/2016 None hypertension Quality chr onic 06/08/2016 None hypertension Onset and Resolution ongoing 06/08/2016 None hypertension Onset of Symptom during adulthood 06/08/2016 None hypertension Severity no t consistently severe symptoms, the symptoms fluctuate from no symptoms to anxiety and headaches 06/08/2016 None hypertension Pertinent Findings Denies dizziness 06/08/2016 None hypertension Pertinent Findings dyspnea 06/08/2016 with activity or anxiousn ess hypertension Pertinent Findings edema 06/08/2016 -wearing knee high compre ssion hose joint complaint Location on both knees [...] Alleviating Factors medication 06/08/2016 None 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 None hypothyroid Onset and Resolution ongoing 06/08/2016 None hypothyroid Onset of Symptom during adulthood 06/08/2016 None hypothyroid Alleviating Factors medication 06/08/2016 None hypertension Quality int ermittent 06/08/2016 None hypertension Blood Pressure Values pt [...] the back 06/08/2016 None abdominal pain Quality i ntermittent 06/08/2016 None abdominal pain Onset and Resolution ongoing 06/08/2016 None abdominal pain Onset of Symptom years ago 06/08/2016 None abdominal pain Timing of Episodes in the morning 06/08/2016 None abdominal pain Triggers no known associated factors 06/08/2016 None hypertension Quality int ermittent 04/17/2016 None hypertension Onset and Resolution ongoing 04/17/2016 None hypertension Blood Pressure Values patient checking blood pressure at home - did not bring in readings 04/17/2016 None hypertension Pertinent Findings Denies dizziness 04/17/2016 None hypertension Pertinent Findings edema 04/17/2016 None hypertension Quality chr onic 04/06/2016 None hypertension Onset and Resolution ongoing 04/06/2016 None hypertension Onset of Symptom during adulthood 04/06/2016 None hypertension Blood Pressure Values not checking blood pressure at home 04/06/2016 None hypertension Severity no t consistently severe symptoms, the symptoms fluctuate from [...] Alleviating Factors medication 04/06/2016 None 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 04/06/2016 None hypothyroid Onset and Resolution ongoing 04/06/2016 None hypothyroid Onset of Symptom during adulthood 04/06/2016 None hypothyroid Severity mil d with subclinical signs 04/06/2016 None hypothyroid Frequency of Episodes unchanged 04/06/2016 None hypothyroid Alleviating Factors medication 04/06/2016 None hypertension Quality chr onic 03/09/2016 None hypertension Onset and Resolution ongoing [...] Alleviating Factors medication 03/09/2016 None 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 03/09/2016 None hypothyroid Onset and Resolution ongoing 03/09/2016 None hypothyroid Onset of Symptom during adulthood 03/09/2016 None hypothyroid Severity mil d with subclinical signs 03/09/2016 None hypothyroid Frequency of Episodes unchanged 03/09/2016 None hypothyroid Alleviating Factors medication 03/09/2016 None hypertension Severity no t consistently severe symptoms, the symptoms fluctuate from no symptoms to anxiety and headaches 03/09/2016 None hypertension Frequency of Episodes unchanged 03/09/2016 None hypertension Quality chr onic 01/18/2016 None hypertension Onset and Resolution ongoing [...] Alleviating Factors medication 01/18/2016 None 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 01/18/2016 None hypothyroid Onset and Resolution ongoing 01/18/2016 None hypothyroid Onset of Symptom during adulthood 01/18/2016 None hypothyroid Severity mil d with subclinical signs 01/18/2016 None hypothyroid Frequency of Episodes unchanged 01/18/2016 None hypothyroid Alleviating Factors medication 01/18/2016 None hypertension Quality chr onic 09/09/2015 None hypertension Onset and Resolution ongoing [...] Left hurts but not constantly 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 09/09/2015 None hypothyroid Onset and Resolution ongoing 09/09/2015 None hypothyroid Onset of Symptom during adulthood 09/09/2015 None hypothyroid Severity mil d with subclinical signs 09/09/2015 None hypothyroid Frequency of Episodes unchanged 09/09/2015 None hypertension Quality chr onic 12/25/2014 None hypertension Onset and Resolution ongoing 12/25/2014 None hypertension Onset of Symptom during adulthood 12/25/2014 None hypertension Blood Pressure Values not checking blood pressure at home 12/25/2014 None hypertension Pertinent Findings Denies anxiety 12/25/2014 None hypertension Pertinent Findings edema 12/25/2014 None hypertension Pertinent Findings Denies dizziness 12/25/2014 None hypertension Pertinent Findings dyspnea 12/25/2014 with activity hypertension Quality chr onic 10/13/2014 None hypertension Onset and Resolution ongoing 10/13/2014 None hypertension Onset of Symptom during adulthood 10/13/2014 None hypertension Blood Pressure Values not checking blood pressure at home 10/13/2014 None hypertension Pertinent Findings Denies anxiety 10/13/2014 None hypertension Quality chr onic 08/28/2014 None hypertension Onset and Resolution ongoing [...] which is her heart beat arrhythmia Quality irreg ular beats 08/28/2014 None arrhythmia Onset and Resolution ongoing 08/28/2014 Says that the Toprol help ed this but made her pulse too low arrhythmia Pertinent Findings dizziness 08/28/2014 None arrhythmia Pertinent Findings dyspnea 08/28/2014 None dyspnea Onset and Resolution ongoing 05/07/2014 None dyspnea Quality chronic 05/07/2014 waking up at night, wearing oxgyen but q uestions needing an overnight oxygen study cough Location in the naresh ng 05/07/2014 None cough Quality acute 05/07/2014 None cough Onset and Resolution ongoing 05/07/2014 None cough Onset of Symptom 2 -3 days ago 05/07/2014 None cough Limitation on Activities does not limit activities 05/07/2014 None cough Frequency of Episodes increasing 05/07/2014 None cough Triggers known all ergens 05/07/2014 None cough Alleviating Factors OTC medications 05/07/2014 None cough Pertinent Findings dyspnea 05/07/2014 None cough Pertinent Findings Denies fever 05/07/2014 None cough Pertinent Findings Denies ill contacts 05/07/2014 None cough Pertinent Findings Denies tachypnea 05/07/2014 None cough Pertinent Findings sputum production 05/07/2014 None cough Significant Medical Conditions pulmonary disease 05/07/2014 None hypertension Quality chr onic 04/16/2014 None hypertension Onset and Resolution ongoing 04/16/2014 None hypertension Onset of Symptom during adulthood 04/16/2014 None hypertension Pertinent Findings Denies anxiety 04/16/2014 None hypertension Blood Pressure Values not checking blood pressure at home 04/16/2014 None skin lesion Onset and Resolution ongoing 01/27/2014 None skin lesion Onset of Symptom during adulthood 01/27/2014 None skin lesion Quality acute 01/27/2014 irritated lesion right shoulder blade an d left forearm skin lesion Severity mild 01/27/2014 None skin lesion Frequency of Episodes increasing 01/27/2014 None skin lesion Triggers no known associated factors 01/27/2014 None fatigue Quality chronic 01/21/2014 None hypertension Quality chr onic 01/21/2014 None hypertension Onset and Resolution ongoing 01/21/2014 None hypertension Blood Pressure Values pt checking blood pressure - see scanned document 01/21/2014 None fatigue Onset and Resolution ongoing 01/21/2014 states she is not sleepin g well. needs order to cont oxygen mole [...] anxiety 01/21/2014 None wrist pain Location on t he right 01/07/2014 None wrist pain Pertinent Findings pain with movement 01/07/2014 None wrist pain Pertinent Findings Denies numbness 01/07/2014 None wrist pain Pertinent Findings Denies decreased range of motion 01/07/2014 None wrist pain Pertinent Findings swelling 01/07/2014 None wrist pain Pertinent Findings Denies stiffness 01/07/2014 None wrist pain Quality chron ic 01/07/2014 None wrist pain Severity mode rate 01/07/2014 None sinus congestion Pertinent Findings cough 12/26/2013 None sinus congestion Pertinent Findings Denies decreased energy level 12/26/2013 None sinus congestion Pertinent Findings Denies fever 12/26/2013 None cough Location in the th roat 12/26/2013 None cough Pertinent Findings Denies fever 12/26/2013 None cough Pertinent Findings Denies dyspnea 12/26/2013 None sinus congestion Onset and Resolution ongoing 12/26/2013 None cough Quality acute 12/26/2013 None cough Onset and Resolution ongoing 12/26/2013 [...] nasal congestion 11/12/2013 None sore throat Location dif fusely 11/12/2013 None sore throat Quality acute 11/12/2013 None sore throat Onset and Resolution ongoing 11/12/2013 None sore throat Onset of Symptom 2 weeks ago 11/12/2013 None sore throat Limitation on Activities does not limit oral intake 11/12/2013 None sore throat Triggers all ergens 11/12/2013 None sore throat Pertinent Findings Denies [...] Findings Denies vomiting 10/09/2013 None hypertension Quality chr onic 04/03/2013 None hypertension Quality sta ble 04/03/2013 None hypertension Onset and Resolution ongoing 04/03/2013 None hypertension Pertinent Findings Denies decreased energy 04/03/2013 None hypertension Alleviating Factors medication 04/03/2013 None hypertension Exacerbating Factors stress 04/03/2013 None hypertension Blood Pressure Values patient checking blood pressure at home - did not bring in readings 04/03/2013 None hypertension Severity mi ld 04/03/2013 None hypertension Significant Family History hypertension 04/03/2013 None edema Quality chronic 01/06/2013 None edema Quality pitting 01/06/2013 None edema Onset and Resolution ongoing 01/06/2013 None edema Location on the ri ght ankle 01/06/2013 None edema Location on the le ft ankle 01/06/2013 None edema Alleviating Factors medication 01/06/2013 None edema Pertinent Findings Denies limb pain / tenderness 01/06/2013 None edema Pertinent Findings Denies limb redness 01/06/2013 None edema Pertinent Findings Denies palpitations 01/06/2013 None edema Pertinent Findings Denies tachycardia 01/06/2013 None edema Pertinent Findings Denies dyspnea 01/06/2013 None hypertension Quality imp roving 01/06/2013 None hypertension Blood Pressure Values not [...] Findings Denies lethargy 01/06/[address] ress 01/06/2013 None hypertension Alleviating Factors medication 01/06/2013 None hypertension Exacerbating Factors stress 01/06/2013 None hypertension Exacerbating Factors change in dietary habits 01/06/2013 None cough Location in the th roat 11/21/2012 None cough Quality interrupts sleep 11/21/2012 None cough Quality productive 11/21/2012 clear cough Pertinent Findings hoarseness 11/21/2012 states she was working wi 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 cough Triggers known all ergens 11/21/2012 None cough Significant Medical Conditions pulmonary disease 11/21/2012 None hypertension Quality chr onic 10/28/2012 None hypertension Onset and Resolution ongoing 10/28/2012 None hypertension Blood Pressure Values not checking blood pressure at home 10/28/2012 None hypertension Onset of Symptom during adulthood 10/28/2012 None hypertension Blood Pressure Values patient checking blood pressure at home - did not bring in readings 10/28/2012 None hypertension Severity mi ld 10/28/[address] ress 10/28/2012 None hypertension Alleviating Factors medication 10/28/2012 None hypertension Pertinent Findings Denies anxiety 10/28/2012 None hypertension Pertinent Findings Denies decreased energy 10/28/2012 None edema Quality chronic 10/28/2012 None edema Quality pitting 10/28/2012 None edema Onset and Resolution ongoing 10/28/2012 None edema Location on both l egs 10/28/2012 None edema Triggers prolonged sitting 10/28/2012 None edema Alleviating Factors medication 10/28/2012 None edema Alleviating Factors recumbency 10/28/2012 None edema Exacerbating Factors salty foods 10/28/2012 None edema Exacerbating Factors standing 10/28/2012 None hypertension Quality chr onic 09/30/2012 None edema Quality chronic 09/30/2012 None edema Quality pitting 09/30/2012 None edema Onset and Resolution ongoing 09/30/2012 None edema Location on both l egs 09/30/2012 None hypertension Onset and Resolution ongoing 09/30/2012 None hypertension Onset of Symptom during adulthood 09/30/2012 None hypertension Blood Pressure Values patient checking blood pressure at home - did not bring in readings 09/30/2012 None hypertension Severity mi ld 09/30/[address] ress 09/30/2012 None hypertension Alleviating Factors medication 09/30/2012 None hypertension Pertinent Findings Denies anxiety 09/30/2012 None hypertension Pertinent Findings Denies decreased energy 09/30/2012 None hypertension Quality chr onic 08/14/2012 None hypertension Onset and Resolution ongoing 08/14/2012 None cellulitis Quality impro ving 08/14/2012 None hypertension Onset of Symptom during adulthood 08/14/2012 None hypertension Blood Pressure Values patient checking blood pressure at home - did not bring in readings 08/14/2012 None hypertension Severity mi ld 08/14/2012 None hypertension Pertinent Findings Denies anxiety 08/14/2012 None hypertension Pertinent Findings Denies decreased energy 08/14/[address] ress 08/14/2012 None hypertension Alleviating Factors medication 08/14/2012 None edema Quality chronic 08/05/2012 None hypertension Blood Pressure Values not checking blood pressure at home 08/05/2012 None edema Quality chronic 07/15/2012 None edema Onset and Resolution ongoing 07/15/2012 having more in her surg k nee hypertension Quality chr onic 07/15/2012 None hypertension Onset and Resolution ongoing [...] nausea 07/15/2012 None edema Location on both l egs 07/15/2012 None edema Alleviating Factors recumbency 07/15/2012 None hypertension Onset of Symptom during adulthood 07/15/2012 None hypertension Severity mi ld 07/15/[address] ress 07/15/2012 None hypertension Alleviating Factors medication 07/15/2012 None hypertension Exacerbating Factors stress 07/15/2012 None hypertension Exacerbating Factors change in dietary habits 07/15/2012 None hypertension Pertinent Findings Denies anxiety 07/15/2012 None hypertension Pertinent Findings Denies confusion 07/15/2012 None hypertension Pertinent Findings edema 07/15/2012 None 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 05/27/2012 None skin lesion Quality pigm ented 05/27/2012 None skin lesion Onset and Resolution [...] upper arm 04/23/2012 None mole check Quality oglesby ing 04/23/2012 None mole check Quality chron ic 04/23/2012 None mole check Color brown 04/23/2012 None mole check Changing Moles changing 04/23/2012 None mole check Changing Moles becoming thicker 04/23/2012 None mole check Onset and Resolution gradual in onset 04/23/2012 None mole check Limitation on Activities does not limit activities 04/23/2012 None mole check Severity mild 04/23/2012 None mole check Prior Treatments previously untreated 04/23/2012 None mole check Triggers no k nown triggers 04/23/2012 None mole check Significant History skin cancer 04/23/2012 None mole check Alleviating Factors no alleviating factors 04/23/2012 None mole check Pertinent Findings Denies flushing 04/23/2012 None mole check Pertinent Findings itching 04/23/2012 None mole check Pertinent Findings Denies tenderness 04/23/2012 None hypertension Quality chr onic 03/25/2012 None hypertension Onset and Resolution ongoing 03/25/2012 None hypertension Onset of Symptom during adulthood 03/25/2012 None hypertension Severity no t consistently severe symptoms, the symptoms fluctuate from no symptoms to anxiety and headaches 03/25/2012 None knee pain Location in th e anterior region 03/25/2012 None knee pain Quality chronic 03/25/2012 None knee pain Limitation on Activities allows weight bearing activity 03/25/2012 None knee pain Significant Medical Conditions degenerative joint disease 03/25/2012 None knee pain Significant Medications NSAID's 03/25/2012 takes 2 tylenol once lindsay y knee pain Mechanism of injury unknown 03/25/2012 None knee pain Alleviating Factors ice compression 03/25/2012 None knee pain Alleviating Factors NSAID's 03/25/2012 None knee pain Alleviating Factors rest 03/25/2012 None knee pain Exacerbating Factors exertion 03/25/2012 None knee pain Exacerbating Factors weight bearing 03/25/2012 None knee pain Frequency of Episodes increasing 03/25/[address] ress 03/25/2012 None hypertension Alleviating Factors medication 03/25/2012 None hypertension Quality chr onic 03/12/2012 None hypertension Onset and Resolution ongoing 03/12/2012 None hypertension Onset of Symptom during adulthood 03/12/2012 None hypertension Blood Pressure Values patient checking blood pressure at home - did not bring in readings 03/12/2012 None hypertension Severity no t consistently severe symptoms, the symptoms fluctuate from no symptoms to anxiety and headaches 03/12/2012 None hypertension Frequency of Episodes unchanged 03/12/[address] ress 03/12/2012 None hypertension Alleviating Factors medication 03/12/2012 None hypertension Pertinent Findings Denies dizziness 03/12/2012 None hypertension Pertinent Findings Denies dyspnea 03/12/2012 None hypertension Pertinent Findings Denies orthostatic hypotension 03/12/2012 None hypertension Pertinent Findings Denies palpitations 03/12/2012 None hypertension Pertinent Findings Denies tachycardia 03/12/2012 None edema Quality acute 01/23/2012 None edema Onset and Resolution ongoing 01/23/2012 None hypertension Quality chr onic 01/23/2012 None hypertension Onset and Resolution ongoing 01/23/2012 None edema Limitation on Activities does not limit activities 01/23/2012 None edema Frequency of Episodes daily 01/23/2012 None edema Significant Medications diuretics 01/23/2012 None edema Triggers diet fraser ge 01/23/2012 None edema Triggers prolonged sitting 01/23/2012 None edema Alleviating Factors recumbency 01/23/2012 None edema Alleviating Factors medication 01/23/2012 None edema Exacerbating Factors salty foods 01/23/2012 None edema Location on both l egs 01/23/2012 None edema Pertinent Findings Denies back pain 01/23/2012 None edema Pertinent Findings Denies dark urine 01/23/2012 None edema Pertinent Findings Denies dyspnea 01/23/[address] ress 01/23/2012 None hypertension Quality imp roving 01/23/2012 None hypertension Onset of Symptom during adulthood 01/23/2012 None hypertension Blood Pressure Values Stage 0:SBP 130-139 mmHg / DBP 85-89 mmHg 01/23/2012 None hypertension Severity mi ld 01/23/2012 None breast complaint Location in the left nipple 01/12/2012 None breast complaint Quality skin color change 01/12/2012 None breast complaint Quality pain 01/12/2012 pt describes it as discom fort and wears a kleenex in her bra [...] worsening 12/25/2011 None blood pressure followup Blood Pressu re Values pt checking blood pressure - see scanned document 12/25/2011 None blood pressure followup Blood Pressu re Values Stage 2:SBP 160-179 mmHg / DBP [...] 12/25/2011 None blood pressure followup Onset and Re solution ongoing 12/25/2011 None blood pressure followup Frequency of Episodes unchanged 12/25/2011 Non e blood pressure followup Alleviating Factor s medication 12/04/2011 None blood pressure followup Blood Pressu re Values not checking blood pressure at home 12/04/2011 None blood pressure followup Frequency of Episodes unchanged 12/04/2011 Non e blood pressure followup Onset and Re solution ongoing 12/04/2011 None blood pressure followup Onset [...] worsening 09/20/2011 None blood pressure followup Blood Pressu re Values pt checking blood pressure - see scanned document 09/20/2011 None blood pressure followup Blood Pressu re Values Stage 2:SBP 160-179 mmHg / DBP [...] Pertinent Findings obesity 09/20/2011 None hypertension Quality chr onic 09/06/2011 None hypertension Quality wor sening 09/06/2011 None anxiety Quality chronic 09/06/2011 None dysuria Quality chronic 09/06/2011 None dysuria Onset and Resolution ongoing. 09/06/2011 Thinks it's better but wa nts to make sure her UTI is gone. hypertension Onset and Resolution ongoing 09/06/2011 None hypertension Blood Pressure Values Stage 1:SBP 140-159 mmHg / DBP 90-99 mmHg 09/06/2011 None hypertension Frequency of Episodes increasing 09/06/[address] ress 09/06/2011 None anxiety Onset and Resolution ongoing 09/06/2011 None anxiety Onset of Symptom 2 years ago 09/06/2011 but worse over the past f ew months. anxiety Limitation on Activities does not limit activities 09/06/2011 None anxiety Frequency of Episodes increasing 09/06/2011 None anxiety Triggers stress 09/06/2011 None anxiety Triggers family discord 09/06/2011 None urinary frequency Onset and Resolution ongoing 08/30/2011 on augmentin, but causing stomach upset. cont to have some back pain hypertension Quality chr onic 08/30/2011 None hypertension Onset and Resolution ongoing 08/30/2011 None hypertension Onset of Symptom during adulthood 08/30/2011 None hypertension Blood Pressure Values patient checking blood pressure at home - did not bring in readings 08/30/2011 None hypertension Severity mi ld 08/30/[address] ress 08/30/2011 None urinary frequency Quality acute 08/30/2011 None urinary frequency Triggers activity 08/30/2011 Pt with UTI - thinks it m ay be due to intercourse cauging passing of [...] reflux Frequency of Episodes most meals 05/04/2011 gonzales s quit eating onions, cut back on lettuce, increased vegetables while taking nexium gastroesophageal reflux Alleviating Factor s medication 05/04/2011 She doesn't have problems when she takes nexium before meals abdominal pain Location in the epigastric area 05/04/2011 None abdominal pain Radiating the back 05/04/2011 None abdominal pain Location in the RLQ 05/04/2011 None abdominal pain Quality s harp 05/04/2011 not extremely sharp, occu rred once, she has a hernia in that area nasal allergies Location in both nares 05/04/2011 None nasal allergies Severity moderate 05/04/2011 None nasal allergies Triggers exposure to grass/pollens 05/04/2011 None nasal allergies Triggers season change 05/04/2011 None sinus pain Quality press ure 05/04/2011 None sinus pain Alleviating Factors medication 05/04/2011 benadryl sinus pain Severity mode rate 05/04/2011 None gastroesophageal reflux Exacerbating Factors medication 05/04/2011 pr ilosec did not work on the GERD abdominal [...] acid 04/19/2011 None gastroesophageal reflux Onset and Re solution ongoing 04/19/2011 None gastroesophageal reflux Quality chronic 04/19/2011 None gastroesophageal reflux Severity moderate 04/19/2011 None gastroesophageal reflux Frequency of Episodes daily 04/19/2011 None gastroesophageal reflux Diet includes spicy foods 04/19/2011 None gastroesophageal reflux Diet includes caffeine 04/19/2011 None gastroesophageal reflux Diet includes chocolate 04/19/2011 None gastroesophageal reflux Triggers meals 04/19/2011 None cough Quality acute 04/19/2011 None cough Quality productive 04/19/2011 None cough Onset of Symptom 3 -4 days ago 04/19/2011 None cough Onset and Resolution gradual in onset 04/19/2011 None cough Significant Medical Conditions asthma 04/19/2011 None fever Quality acute 04/19/2011 None fever Onset of Symptom 1 days ago 04/19/2011 None wheezing Location diffus ladonna 04/19/2011 None wheezing Quality acute 04/19/2011 None wheezing Onset and Resolution worse during the day 04/19/2011 None wheezing Onset of Symptom 3-4 days ago 04/19/2011 None wheezing Severity modera te 04/19/2011 None Symptom Name Status Resu lt Effective Date Notes Quality chronic 09/03/2018 None Quality primary hypert ension 09/03/2018 None Onset and Resolution o ngoing 09/03/2018 None Onset of Symptom durin g adulthood 09/03/2018 None Blood Pressure Values not checking blood pressure at home 09/03/2018 None Alleviating Factors me dication 09/03/2018 None Pertinent Findings dec reased energy 09/03/2018 None Pertinent Findings diz ziness 09/03/2018 at times when she first g ets up in the mornings Pertinent Findings dys pnea 09/03/2018 occasionally- wears oxyge n at night Pertinent Findings maria de jesus ma 09/03/2018 -wears bilateral hose Onset and Resolution g radual in onset 09/03/2018 None Exacerbating Factors d iet 09/03/2018 None Location on both sides 09/03/2018 None Quality intermittent 09/03/2018 None Quality aching 09/03/[address] Factors re st 09/03/2018 None Exacerbating Factors s tanding or walking 09/03/2018 None hypertension Quality shira tania hypertension 05/29/2018 None hypertension Onset and Resolution ongoing 05/29/2018 None hypertension Onset of Symptom during adulthood 05/29/2018 None hypertension Blood Pressure Values not checking blood pressure at home 05/29/2018 None hypertension Alleviating Factors medication 05/29/2018 None hypertension Pertinent Findings decreased energy 05/29/2018 None hypertension Pertinent Findings dizziness 05/29/2018 at times when she first g ets up in the mornings hypertension Pertinent Findings dyspnea 05/29/2018 occasionally- wears oxyge n at night hypertension Pertinent Findings edema 05/29/2018 -wears bilateral hose 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 05/29/2018 None hypothyroid Onset and Resolution ongoing 05/29/2018 None hypothyroid Alleviating Factors medication 05/29/2018 None hypertension Quality chr onic 05/29/2018 None hyperlipidemia Onset and Resolution gradual in onset 05/29/2018 None hyperlipidemia Onset of Symptom during adulthood 05/29/2018 None hyperlipidemia Alleviating Factors medication 05/29/2018 None hyperlipidemia Exacerbating Factors diet 05/29/2018 None low back pain Location o n both sides 05/29/2018 None low back pain Quality ac ministerio 05/29/2018 None low back pain Onset and Resolution ongoing 05/29/2018 None low back pain Exacerbating Factors standing or walking 05/29/2018 None low back pain Quality in termittent 05/29/2018 None low back pain Alleviating Factors [...] Annual Medicare Wellness Exam Blood Pressure (self reported) diagnosed with hypertension 04/25/20 18 None Annual Medicare Wellness Exam Choles terol (self reported) diagnosed with elevated cholesterol 04/25/2018 None Annual Medicare Wellness Exam Hemagl obin A-1C (self reported) don't know 04/25/2018 No ne Annual Medicare Wellness Exam Hemagl obin A-1C (self reported) never checked 04/25/2018 None Annual Medicare Wellness Exam Hours of Sleep 5-6 04/25/2018 None Annual Medicare Wellness Exam Intera ction with Friends no 04/25/2018 None Annual Medicare Wellness Exam Exerci se Habits exercises 5 days per week 04/25/2018 None Annual Medicare Wellness Exam Exerci se Habits exercises 15 minutes per day 04/25/2018 None Annual Medicare Wellness Exam Descri be Your Health fair 04/25/2018 None Annual Medicare Wellness Exam Depres omar (last 6 months) some of the time 04/25/2018 None Annual Medicare Wellness Exam Depres omar or Hopelessness some of the time 04/25/2018 None Annual Medicare Wellness Exam Intere sts & Pleasure almost never 04/25/2018 None Annual Medicare Wellness Exam Stress almost never 04/25/2018 None Annual Medicare Wellness Exam Handli ng Stress usually sheldon effectively 04/25/2018 None Annual Medicare Wellness Exam Life S atisfaction satisfied 04/25/2018 Non e Annual Medicare Wellness Exam Social & Emotional Support always 04/25/2018 None Annual Medicare Wellness Exam Smokin g and Tobacco Use non smoker 04/25/2018 No ne Annual Medicare Wellness Exam Sun Exposure protects skin when outdoors: yes 04/25/2018 None Annual Medicare Wellness Exam Motor Vehicle Safety always fastens seat belt: yes 2017 None Annual Medicare Wellness Exam Motor Vehicle Safety drives after drinking: no 04/25/2018 None Annual Medicare Wellness Exam Motor Vehicle Safety rides with someone who has been drinking: no 04/25/2018 None Annual Medicare Wellness Exam Nutrition servings of fried food / high fat foods per day: 0-1 04/25/2018 None Annual Medicare Wellness Exam Nutrition [...] Exacerbating Factors Q-tips 02/06/2018 None hypertension Quality shira marin hypertension 01/23/2018 None hypertension Onset and Resolution ongoing 01/23/2018 None hypertension Onset of Symptom during adulthood 01/23/2018 None hypertension Blood Pressure Values not checking blood pressure at home 01/23/2018 None hypertension Alleviating Factors medication 01/23/2018 None hypertension Pertinent Findings dizziness 01/23/2018 at times when she first g ets up in the mornings hypertension Pertinent Findings dyspnea 01/23/2018 occasionally- wears oxyge n at night hypertension Pertinent Findings edema 01/23/2018 None hypothyroid Onset and Resolution ongoing 01/23/2018 None hypothyroid Alleviating Factors medication 01/23/2018 None 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 None hypertension Pertinent Findings decreased energy 01/23/2018 None cough Quality acute 09/26/2017 None cough Quality intermitte nt 09/26/2017 None cough Quality productive 09/26/2017 None cough Onset and Resolution sudden in onset 09/26/2017 None cough Onset and Resolution ongoing 09/26/2017 None cough Pertinent Findings chills 09/26/2017 -states that she always f eels cold cough Quality improving 09/26/2017 None cough Onset of Symptom 1 .5 months ago 09/26/2017 None cough Frequency of Episodes decreasing 09/26/2017 None hypertension Quality shira marin hypertension 09/12/2017 None hypertension Onset and Resolution ongoing 09/12/2017 None hypertension Onset of Symptom during adulthood 09/12/2017 None hypertension Alleviating Factors medication 09/12/2017 None hypertension Pertinent Findings dizziness 09/12/2017 when she first gets up in the mornings hypertension Pertinent Findings dyspnea 09/12/2017 occasionally- wears oxyge n at night hypertension Pertinent Findings edema 09/12/2017 None hypothyroid Onset and Resolution ongoing 09/12/2017 None hypothyroid Alleviating Factors medication 09/12/2017 None cough Quality acute 09/12/2017 None cough Quality intermitte nt 09/12/2017 None cough Onset and Resolution sudden in onset 09/12/2017 None cough Onset and Resolution ongoing 09/12/2017 None cough Onset of Symptom 1 + months ago 09/12/2017 None cough Pertinent Findings facial pain 09/12/2017 None cough Pertinent Findings chills 09/12/2017 -states that she always f eels cold cough Quality productive 09/12/2017 None cough Pertinent Findings sputum production 09/12/2017 (yellow) cough Pertinent Findings post nasal drip 09/12/2017 (clear) hypertension Blood Pressure Values not checking blood pressure at home 09/12/2017 None cough Quality acute 08/31/2017 None cough Quality intermitte nt 08/31/2017 None cough Onset and Resolution sudden [...] Findings hoarseness 08/09/2017 None cough Quality acute 08/09/2017 None cough Quality intermitte nt 08/09/2017 None cough Onset and Resolution sudden [...] known associated factors 08/09/2017 None hypertension Quality int ermittent 05/07/2017 None hypertension Quality shira tania hypertension 05/07/2017 None hypertension Onset and Resolution ongoing 05/07/2017 None hypertension Onset of Symptom during adulthood 05/07/2017 None hypertension Alleviating Factors medication 05/07/2017 None hypertension Pertinent Findings dizziness 05/07/2017 occasioinally- in the mor nings when she first wakes up hypertension Pertinent Findings dyspnea 05/07/2017 occasionally- wears oxyge n at night hypertension Pertinent Findings edema 05/07/2017 None hypothyroid Onset and Resolution ongoing 05/07/2017 None hypothyroid Alleviating Factors medication 05/07/2017 None knee pain Location on th e left 05/07/2017 None knee pain Quality interm ittent 05/07/2017 None knee pain Onset and Resolution [...] Blood Glucose (self reported) don't know 04/12/2017 No ne Annual Medicare Wellness Exam Blood Pressure (self reported) low / normal (120/80) 04/12/2017 None Annual Medicare Wellness Exam Choles terol (self reported) desireable (below 200) 04/12/2017 None Annual Medicare Wellness Exam Depres omar (last 6 months) some of the time 04/12/2017 None Annual Medicare Wellness Exam Depres omar or Hopelessness almost never 04/12/2017 None Annual Medicare Wellness Exam Descri be Your Health good 04/12/2017 None Annual Medicare Wellness Exam Exerci se Habits exercises 3 days per week 04/12/2017 None Annual Medicare Wellness Exam Exerci se Habits exercises 30 minutes per day 04/12/2017 None Annual Medicare Wellness Exam Handli ng Stress usually sheldon effectively 04/12/2017 None Annual Medicare Wellness Exam Hemagl obin A-1C (self reported) don't know 04/12/2017 No ne Annual Medicare Wellness Exam Hours of Sleep 6 04/12/2017 None Annual Medicare Wellness Exam Intera ction with Friends yes 04/12/2017 None Annual Medicare Wellness Exam Intere sts & Pleasure some of the time 04/12/2017 None Annual Medicare Wellness Exam Life S atisfaction satisfied 04/12/2017 Non e Annual Medicare Wellness Exam Motor Vehicle Safety always fastens seat belt: y 04/12/20 17 None Annual Medicare Wellness Exam Motor Vehicle Safety drives after drinking: nn 04/12/2017 None Annual Medicare Wellness Exam Motor Vehicle Safety rides with someone who has been drinking: n 04/12/2017 None Annual Medicare Wellness Exam Nutrition servings of fried food / high fat foods per day: 0 04/12/2017 None Annual Medicare Wellness Exam Nutrition servings of high fiber / whole grain per day: 1 04/12/2017 None Annual Medicare Wellness Exam Nutrition servings of vegetables / fruit per day: 2 04/12/2017 None Annual Medicare Wellness Exam Smokin g and Tobacco Use non smoker 04/12/2017 No ne Annual Medicare Wellness Exam Social & Emotional Support always 04/12/2017 None Annual Medicare Wellness Exam Stress most of the time 04/12/2017 None Annual Medicare Wellness Exam Sun Exposure protects skin when outdoors: y 04/12/2017 None cough Location in the naresh ng 02/05/2017 None cough Location in the th roat 02/05/2017 None cough Quality acute 02/05/2017 None cough Onset and Resolution ongoing 02/05/2017 None cough Onset of Symptom 2 weeks ago 02/05/2017 None cough Limitation on Activities does not limit activities 02/05/2017 None cough Frequency of Episodes unchanged 02/05/2017 None cough Triggers known all ergens 02/05/2017 None cough Pertinent Findings Denies chest discomfort 02/05/2017 None cough Pertinent Findings Denies dyspnea 02/05/2017 None cough Pertinent Findings Denies fever 02/05/2017 None cough Pertinent Findings nasal congestion 02/05/2017 None cough Location in the naersh ng 02/02/2017 None cough Location in the th roat 02/02/2017 None cough Quality acute 02/02/2017 None cough Onset and Resolution ongoing 02/02/2017 None cough Onset of Symptom 2 weeks ago 02/02/2017 None cough Limitation on Activities does not limit activities 02/02/2017 None cough Frequency of Episodes unchanged 02/02/2017 None cough Triggers known all ergens 02/02/2017 None cough Pertinent Findings Denies chest [...] urgency 02/02/2017 None cough Location in the th roat 01/15/2017 None cough Location in the naresh ng 01/15/2017 None cough Quality acute 01/15/2017 None cough Onset and Resolution ongoing 01/15/2017 None cough Onset of Symptom 2 weeks ago 01/15/2017 None cough Limitation on Activities does not limit activities 01/15/2017 None cough Frequency of Episodes unchanged 01/15/2017 None cough Triggers known all ergens 01/15/2017 None cough Pertinent Findings Denies chest discomfort 01/15/2017 None cough Pertinent Findings Denies dyspnea 01/15/2017 None cough Pertinent Findings Denies fever 01/15/2017 None cough Pertinent Findings nasal congestion 01/15/2017 None hypertension Quality int ermittent 01/04/2017 None hypertension Onset and Resolution ongoing 01/04/2017 None hypertension Blood Pressure Values patient checking blood pressure at home - did not bring in readings 01/04/2017 None hypertension Alleviating Factors medication 01/04/2017 None hypertension Pertinent Findings dizziness 01/04/2017 occasioinally- in the mor nings when she first wakes up hypertension Pertinent Findings dyspnea 01/04/2017 occasionally- wears oxyge n at night hypertension Pertinent Findings edema 01/04/2017 wears bilateral knee high madi hose hypothyroid Onset and Resolution ongoing 01/04/2017 None hypothyroid Alleviating Factors medication 01/04/2017 None knee pain Location on th e left 01/04/2017 None knee pain Quality worsen ing 01/04/2017 None knee pain Onset and Resolution gradual in onset 01/04/2017 None knee pain Quality interm ittent 01/04/2017 None knee pain Frequency of Episodes [...] pain with movement 01/04/2017 None hypertension Quality shira tania hypertension 01/04/2017 None hypertension Onset of Symptom during adulthood 01/04/2017 None hypertension Quality int ermittent 09/07/2016 None hypertension Onset and Resolution ongoing 09/07/2016 None hypertension Blood Pressure Values patient checking blood pressure at home - did not bring in readings 09/07/2016 pt reports that occasionally her lbood p ressure will be in the 180's/90's - hypertension Pertinent Findings dizziness 09/07/2016 occasioinally hypertension Pertinent Findings edema 09/07/2016 wears bilateral knee high madi hose hypertension Alleviating Factors medication 09/07/2016 None hypothyroid Onset and Resolution ongoing 09/07/2016 None hypothyroid Alleviating Factors medication 09/07/2016 None hypertension Pertinent Findings dyspnea 09/07/2016 occasionally- wears oxyge n at night gait abnormality Quality unsteady 09/07/2016 None gait abnormality Onset and Resolution ongoing 09/07/2016 None hypertension Quality int ermittent 07/06/2016 None hypertension Onset and Resolution ongoing 07/06/2016 None hypertension Blood Pressure Values patient checking blood pressure at home - did not bring in readings 07/06/2016 None hypertension Pertinent Findings Denies dizziness 07/06/2016 None hypertension Pertinent Findings edema 07/06/2016 None hypertension Quality chr onic 06/08/2016 None hypertension Onset and Resolution ongoing 06/08/2016 None hypertension Onset of Symptom during adulthood 06/08/2016 None hypertension Severity no t consistently severe symptoms, the symptoms fluctuate from no symptoms to anxiety and headaches 06/08/2016 None hypertension Pertinent Findings Denies dizziness 06/08/2016 None hypertension Pertinent Findings dyspnea 06/08/2016 with activity or anxiousn ess hypertension Pertinent Findings edema 06/08/2016 -wearing knee high compre ssion hose joint complaint Location on both knees [...] Alleviating Factors medication 06/08/2016 None 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 None hypothyroid Onset and Resolution ongoing 06/08/2016 None hypothyroid Onset of Symptom during adulthood 06/08/2016 None hypothyroid Alleviating Factors medication 06/08/2016 None hypertension Quality int ermittent 06/08/2016 None hypertension Blood Pressure Values pt [...] the back 06/08/2016 None abdominal pain Quality i ntermittent 06/08/2016 None abdominal pain Onset and Resolution ongoing 06/08/2016 None abdominal pain Onset of Symptom years ago 06/08/2016 None abdominal pain Timing of Episodes in the morning 06/08/2016 None abdominal pain Triggers no known associated factors 06/08/2016 None hypertension Quality int ermittent 04/17/2016 None hypertension Onset and Resolution ongoing 04/17/2016 None hypertension Blood Pressure Values patient checking blood pressure at home - did not bring in readings 04/17/2016 None hypertension Pertinent Findings Denies dizziness 04/17/2016 None hypertension Pertinent Findings edema 04/17/2016 None hypertension Quality chr onic 04/06/2016 None hypertension Onset and Resolution ongoing 04/06/2016 None hypertension Onset of Symptom during adulthood 04/06/2016 None hypertension Blood Pressure Values not checking blood pressure at home 04/06/2016 None hypertension Severity no t consistently severe symptoms, the symptoms fluctuate from [...] Alleviating Factors medication 04/06/2016 None 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 04/06/2016 None hypothyroid Onset and Resolution ongoing 04/06/2016 None hypothyroid Onset of Symptom during adulthood 04/06/2016 None hypothyroid Severity mil d with subclinical signs 04/06/2016 None hypothyroid Frequency of Episodes unchanged 04/06/2016 None hypothyroid Alleviating Factors medication 04/06/2016 None hypertension Quality chr onic 03/09/2016 None hypertension Onset and Resolution ongoing [...] Alleviating Factors medication 03/09/2016 None 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 03/09/2016 None hypothyroid Onset and Resolution ongoing 03/09/2016 None hypothyroid Onset of Symptom during adulthood 03/09/2016 None hypothyroid Severity mil d with subclinical signs 03/09/2016 None hypothyroid Frequency of Episodes unchanged 03/09/2016 None hypothyroid Alleviating Factors medication 03/09/2016 None hypertension Severity no t consistently severe symptoms, the symptoms fluctuate from no symptoms to anxiety and headaches 03/09/2016 None hypertension Frequency of Episodes unchanged 03/09/2016 None hypertension Quality chr onic 01/18/2016 None hypertension Onset and Resolution ongoing [...] Alleviating Factors medication 01/18/2016 None 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 01/18/2016 None hypothyroid Onset and Resolution ongoing 01/18/2016 None hypothyroid Onset of Symptom during adulthood 01/18/2016 None hypothyroid Severity mil d with subclinical signs 01/18/2016 None hypothyroid Frequency of Episodes unchanged 01/18/2016 None hypothyroid Alleviating Factors medication 01/18/2016 None hypertension Quality chr onic 09/09/2015 None hypertension Onset and Resolution ongoing [...] Left hurts but not constantly 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 09/09/2015 None hypothyroid Onset and Resolution ongoing 09/09/2015 None hypothyroid Onset of Symptom during adulthood 09/09/2015 None hypothyroid Severity mil d with subclinical signs 09/09/2015 None hypothyroid Frequency of Episodes unchanged 09/09/2015 None hypertension Quality chr onic 12/25/2014 None hypertension Onset and Resolution ongoing 12/25/2014 None hypertension Onset of Symptom during adulthood 12/25/2014 None hypertension Blood Pressure Values not checking blood pressure at home 12/25/2014 None hypertension Pertinent Findings Denies anxiety 12/25/2014 None hypertension Pertinent Findings edema 12/25/2014 None hypertension Pertinent Findings Denies dizziness 12/25/2014 None hypertension Pertinent Findings dyspnea 12/25/2014 with activity hypertension Quality chr onic 10/13/2014 None hypertension Onset and Resolution ongoing 10/13/2014 None hypertension Onset of Symptom during adulthood 10/13/2014 None hypertension Blood Pressure Values not checking blood pressure at home 10/13/2014 None hypertension Pertinent Findings Denies anxiety 10/13/2014 None hypertension Quality chr onic 08/28/2014 None hypertension Onset and Resolution ongoing [...] which is her heart beat arrhythmia Quality irreg ular beats 08/28/2014 None arrhythmia Onset and Resolution ongoing 08/28/2014 Says that the Toprol help ed this but made her pulse too low arrhythmia Pertinent Findings dizziness 08/28/2014 None arrhythmia Pertinent Findings dyspnea 08/28/2014 None dyspnea Onset and Resolution ongoing 05/07/2014 None dyspnea Quality chronic 05/07/2014 waking up at night, wearing oxgyen but q uestions needing an overnight oxygen study cough Location in the naresh ng 05/07/2014 None cough Quality acute 05/07/2014 None cough Onset and Resolution ongoing 05/07/2014 None cough Onset of Symptom 2 -3 days ago 05/07/2014 None cough Limitation on Activities does not limit activities 05/07/2014 None cough Frequency of Episodes increasing 05/07/2014 None cough Triggers known all ergens 05/07/2014 None cough Alleviating Factors OTC medications 05/07/2014 None cough Pertinent Findings dyspnea 05/07/2014 None cough Pertinent Findings Denies fever 05/07/2014 None cough Pertinent Findings Denies ill contacts 05/07/2014 None cough Pertinent Findings Denies tachypnea 05/07/2014 None cough Pertinent Findings sputum production 05/07/2014 None cough Significant Medical Conditions pulmonary disease 05/07/2014 None hypertension Quality chr onic 04/16/2014 None hypertension Onset and Resolution ongoing 04/16/2014 None hypertension Onset of Symptom during adulthood 04/16/2014 None hypertension Pertinent Findings Denies anxiety 04/16/2014 None hypertension Blood Pressure Values not checking blood pressure at home 04/16/2014 None skin lesion Onset and Resolution ongoing 01/27/2014 None skin lesion Onset of Symptom during adulthood 01/27/2014 None skin lesion Quality acute 01/27/2014 irritated lesion right shoulder blade an d left forearm skin lesion Severity mild 01/27/2014 None skin lesion Frequency of Episodes increasing 01/27/2014 None skin lesion Triggers no known associated factors 01/27/2014 None fatigue Quality chronic 01/21/2014 None hypertension Quality chr onic 01/21/2014 None hypertension Onset and Resolution ongoing 01/21/2014 None hypertension Blood Pressure Values pt checking blood pressure - see scanned document 01/21/2014 None fatigue Onset and Resolution ongoing 01/21/2014 states she is not sleepin g well. needs order to cont oxygen mole [...] anxiety 01/21/2014 None wrist pain Location on t he right 01/07/2014 None wrist pain Pertinent Findings pain with movement 01/07/2014 None wrist pain Pertinent Findings Denies numbness 01/07/2014 None wrist pain Pertinent Findings Denies decreased range of motion 01/07/2014 None wrist pain Pertinent Findings swelling 01/07/2014 None wrist pain Pertinent Findings Denies stiffness 01/07/2014 None wrist pain Quality chron ic 01/07/2014 None wrist pain Severity mode rate 01/07/2014 None sinus congestion Pertinent Findings cough 12/26/2013 None sinus congestion Pertinent Findings Denies decreased energy level 12/26/2013 None sinus congestion Pertinent Findings Denies fever 12/26/2013 None cough Location in the th roat 12/26/2013 None cough Pertinent Findings Denies fever 12/26/2013 None cough Pertinent Findings Denies dyspnea 12/26/2013 None sinus congestion Onset and Resolution ongoing 12/26/2013 None cough Quality acute 12/26/2013 None cough Onset and Resolution ongoing 12/26/2013 [...] nasal congestion 11/12/2013 None sore throat Location dif fusely 11/12/2013 None sore throat Quality acute 11/12/2013 None sore throat Onset and Resolution ongoing 11/12/2013 None sore throat Onset of Symptom 2 weeks ago 11/12/2013 None sore throat Limitation on Activities does not limit oral intake 11/12/2013 None sore throat Triggers all ergens 11/12/2013 None sore throat Pertinent Findings Denies [...] Findings Denies vomiting 10/09/2013 None hypertension Quality chr onic 04/03/2013 None hypertension Quality sta ble 04/03/2013 None hypertension Onset and Resolution ongoing 04/03/2013 None hypertension Pertinent Findings Denies decreased energy 04/03/2013 None hypertension Alleviating Factors medication 04/03/2013 None hypertension Exacerbating Factors stress 04/03/2013 None hypertension Blood Pressure Values patient checking blood pressure at home - did not bring in readings 04/03/2013 None hypertension Severity mi ld 04/03/2013 None hypertension Significant Family History hypertension 04/03/2013 None edema Quality chronic 01/06/2013 None edema Quality pitting 01/06/2013 None edema Onset and Resolution ongoing 01/06/2013 None edema Location on the ri ght ankle 01/06/2013 None edema Location on the le ft ankle 01/06/2013 None edema Alleviating Factors medication 01/06/2013 None edema Pertinent Findings Denies limb pain / tenderness 01/06/2013 None edema Pertinent Findings Denies limb redness 01/06/2013 None edema Pertinent Findings Denies palpitations 01/06/2013 None edema Pertinent Findings Denies tachycardia 01/06/2013 None edema Pertinent Findings Denies dyspnea 01/06/2013 None hypertension Quality imp roving 01/06/2013 None hypertension Blood Pressure Values not [...] Findings Denies lethargy 01/06/[address] ress 01/06/2013 None hypertension Alleviating Factors medication 01/06/2013 None hypertension Exacerbating Factors stress 01/06/2013 None hypertension Exacerbating Factors change in dietary habits 01/06/2013 None cough Location in the roat 11/21/2012 None cough Quality interrupts sleep 11/21/2012 None cough Quality productive 11/21/2012 clear cough Pertinent Findings hoarseness 11/21/2012 states she was working [facility] [employer] 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 cough Triggers known all ergens 11/21/2012 None cough Significant Medical Conditions pulmonary disease 11/21/2012 None hypertension Quality chr onic 10/28/2012 None hypertension Onset and Resolution ongoing 10/28/2012 None hypertension Blood Pressure Values not checking blood pressure at home 10/28/2012 None hypertension Onset of Symptom during adulthood 10/28/2012 None hypertension Blood Pressure Values patient checking blood pressure at home - did not bring in readings 10/28/2012 None hypertension Severity mi ld 10/28/[address] ress 10/28/2012 None hypertension Alleviating Factors medication 10/28/2012 None hypertension Pertinent Findings Denies anxiety 10/28/2012 None hypertension Pertinent Findings Denies decreased energy 10/28/2012 None edema Quality chronic 10/28/2012 None edema Quality pitting 10/28/2012 None edema Onset and Resolution ongoing 10/28/2012 None edema Location on both l egs 10/28/2012 None edema Triggers prolonged sitting 10/28/2012 None edema Alleviating Factors medication 10/28/2012 None edema Alleviating Factors recumbency 10/28/2012 None edema Exacerbating Factors salty foods 10/28/2012 None edema Exacerbating Factors standing 10/28/2012 None hypertension Quality chr onic 09/30/2012 None edema Quality chronic 09/30/2012 None edema Quality pitting 09/30/2012 None edema Onset and Resolution ongoing 09/30/2012 None edema Location on both l egs 09/30/2012 None hypertension Onset and Resolution ongoing 09/30/2012 None hypertension Onset of Symptom during adulthood 09/30/2012 None hypertension Blood Pressure Values patient checking blood pressure at home - did not bring in readings 09/30/2012 None hypertension Severity mi ld 09/30/[address] ress 09/30/2012 None hypertension Alleviating Factors medication 09/30/2012 None hypertension Pertinent Findings Denies anxiety 09/30/2012 None hypertension Pertinent Findings Denies decreased energy 09/30/2012 None hypertension Quality chr onic 08/14/2012 None hypertension Onset and Resolution ongoing 08/14/2012 None cellulitis Quality impro ving 08/14/2012 None hypertension Onset of Symptom during adulthood 08/14/2012 None hypertension Blood Pressure Values patient checking blood pressure at home - did not bring in readings 08/14/2012 None hypertension Severity mi ld 08/14/2012 None hypertension Pertinent Findings Denies anxiety 08/14/2012 None hypertension Pertinent Findings Denies decreased energy 08/14/[address] ress 08/14/2012 None hypertension Alleviating Factors medication 08/14/2012 None edema Quality chronic 08/05/2012 None hypertension Blood Pressure Values not checking blood pressure at home 08/05/2012 None edema Quality chronic 07/15/2012 None edema Onset and Resolution ongoing 07/15/2012 having more in her surg k nee hypertension Quality chr onic 07/15/2012 None hypertension Onset and Resolution ongoing [...] nausea 07/15/2012 None edema Location on both l egs 07/15/2012 None edema Alleviating Factors recumbency 07/15/2012 None hypertension Onset of Symptom during adulthood 07/15/2012 None hypertension Severity mi ld 07/15/[address] ress 07/15/2012 None hypertension Alleviating Factors medication 07/15/2012 None hypertension Exacerbating Factors stress 07/15/2012 None hypertension Exacerbating Factors change in dietary habits 07/15/2012 None hypertension Pertinent Findings Denies anxiety 07/15/2012 None hypertension Pertinent Findings Denies confusion 07/15/2012 None hypertension Pertinent Findings edema 07/15/2012 None 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 05/27/2012 None skin lesion Quality pigm ented 05/27/2012 None skin lesion Onset and Resolution [...] upper arm 04/23/2012 None mole check Quality oglesby ing 04/23/2012 None mole check Quality chron ic 04/23/2012 None mole check Color brown 04/23/2012 None mole check Changing Moles changing 04/23/2012 None mole check Changing Moles becoming thicker 04/23/2012 None mole check Onset and Resolution gradual in onset 04/23/2012 None mole check Limitation on Activities does not limit activities 04/23/2012 None mole check Severity mild 04/23/2012 None mole check Prior Treatments previously untreated 04/23/2012 None mole check Triggers no k nown triggers 04/23/2012 None mole check Significant History skin cancer 04/23/2012 None mole check Alleviating Factors no alleviating factors 04/23/2012 None mole check Pertinent Findings Denies flushing 04/23/2012 None mole check Pertinent Findings itching 04/23/2012 None mole check Pertinent Findings Denies tenderness 04/23/2012 None hypertension Quality chr onic 03/25/2012 None hypertension Onset and Resolution ongoing 03/25/2012 None hypertension Onset of Symptom during adulthood 03/25/2012 None hypertension Severity no t consistently severe symptoms, the symptoms fluctuate from no symptoms to anxiety and headaches 03/25/2012 None knee pain Location in th e anterior region 03/25/2012 None knee pain Quality chronic 03/25/2012 None knee pain Limitation on Activities allows weight bearing activity 03/25/2012 None knee pain Significant Medical Conditions degenerative joint disease 03/25/2012 None knee pain Significant Medications NSAID's 03/25/2012 takes 2 tylenol once lindsay y knee pain Mechanism of injury unknown 03/25/2012 None knee pain Alleviating Factors ice compression 03/25/2012 None knee pain Alleviating Factors NSAID's 03/25/2012 None knee pain Alleviating Factors rest 03/25/2012 None knee pain Exacerbating Factors exertion 03/25/2012 None knee pain Exacerbating Factors weight bearing 03/25/2012 None knee pain Frequency of Episodes increasing 03/25/[address] ress 03/25/2012 None hypertension Alleviating Factors medication 03/25/2012 None hypertension Quality chr onic 03/12/2012 None hypertension Onset and Resolution ongoing 03/12/2012 None hypertension Onset of Symptom during adulthood 03/12/2012 None hypertension Blood Pressure Values patient checking blood pressure at home - did not bring in readings 03/12/2012 None hypertension Severity no t consistently severe symptoms, the symptoms fluctuate from no symptoms to anxiety and headaches 03/12/2012 None hypertension Frequency of Episodes unchanged 03/12/[address] ress 03/12/2012 None hypertension Alleviating Factors medication 03/12/2012 None hypertension Pertinent Findings Denies dizziness 03/12/2012 None hypertension Pertinent Findings Denies dyspnea 03/12/2012 None hypertension Pertinent Findings Denies orthostatic hypotension 03/12/2012 None hypertension Pertinent Findings Denies palpitations 03/12/2012 None hypertension Pertinent Findings Denies tachycardia 03/12/2012 None edema Quality acute 01/23/2012 None edema Onset and Resolution ongoing 01/23/2012 None hypertension Quality chr onic 01/23/2012 None hypertension Onset and Resolution ongoing 01/23/2012 None edema Limitation on Activities does not limit activities 01/23/2012 None edema Frequency of Episodes daily 01/23/2012 None edema Significant Medications diuretics 01/23/2012 None edema Triggers diet fraser ge 01/23/2012 None edema Triggers prolonged sitting 01/23/2012 None edema Alleviating Factors recumbency 01/23/2012 None edema Alleviating Factors medication 01/23/2012 None edema Exacerbating Factors salty foods 01/23/2012 None edema Location on both l egs 01/23/2012 None edema Pertinent Findings Denies back pain 01/23/2012 None edema Pertinent Findings Denies dark urine 01/23/2012 None edema Pertinent Findings Denies dyspnea 01/23/[address] ress 01/23/2012 None hypertension Quality imp roving 01/23/2012 None hypertension Onset of Symptom during adulthood 01/23/2012 None hypertension Blood Pressure Values Stage 0:SBP 130-139 mmHg / DBP 85-89 mmHg 01/23/2012 None hypertension Severity mi ld 01/23/2012 None breast complaint Location in the left nipple 01/12/2012 None breast complaint Quality skin color change 01/12/2012 None breast complaint Quality pain 01/12/2012 pt describes it as discom fort and wears a kleenex in her bra [...] worsening 12/25/2011 None blood pressure followup Blood Pressu re Values pt checking blood pressure - see scanned document 12/25/2011 None blood pressure followup Blood Pressu re Values Stage 2:SBP 160-179 mmHg / DBP [...] 12/25/2011 None blood pressure followup Onset and Re solution ongoing 12/25/2011 None blood pressure followup Frequency of Episodes unchanged 12/25/2011 Non e blood pressure followup Alleviating Factor s medication 12/04/2011 None blood pressure followup Blood Pressu re Values not checking blood pressure at home 12/04/2011 None blood pressure followup Frequency of Episodes unchanged 12/04/2011 Non e blood pressure followup Onset and Re solution ongoing 12/04/2011 None blood pressure followup Onset [...] worsening 09/20/2011 None blood pressure followup Blood Pressu re Values pt checking blood pressure - see scanned document 09/20/2011 None blood pressure followup Blood Pressu re Values Stage 2:SBP 160-179 mmHg / DBP [...] Pertinent Findings obesity 09/20/2011 None hypertension Quality chr onic 09/06/2011 None hypertension Quality wor sening 09/06/2011 None anxiety Quality chronic 09/06/2011 None dysuria Quality chronic 09/06/2011 None dysuria Onset and Resolution ongoing. 09/06/2011 Thinks it's better but wa nts to make sure her UTI is gone. hypertension Onset and Resolution ongoing 09/06/2011 None hypertension Blood Pressure Values Stage 1:SBP 140-159 mmHg / DBP 90-99 mmHg 09/06/2011 None hypertension Frequency of Episodes increasing 09/06/[address] ress 09/06/2011 None anxiety Onset and Resolution ongoing 09/06/2011 None anxiety Onset of Symptom 2 years ago 09/06/2011 but worse over the past f ew months. anxiety Limitation on Activities does not limit activities 09/06/2011 None anxiety Frequency of Episodes increasing 09/06/2011 None anxiety Triggers stress 09/06/2011 None anxiety Triggers family discord 09/06/2011 None urinary frequency Onset and Resolution ongoing 08/30/2011 on augmentin, but causing stomach upset. cont to have some back pain hypertension Quality chr onic 08/30/2011 None hypertension Onset and Resolution ongoing 08/30/2011 None hypertension Onset of Symptom during adulthood 08/30/2011 None hypertension Blood Pressure Values patient checking blood pressure at home - did not bring in readings 08/30/2011 None hypertension Severity mi ld 08/30/[address] ress 08/30/2011 None urinary frequency Quality acute 08/30/2011 None urinary frequency Triggers activity 08/30/2011 Pt with UTI - thinks it m ay be due to intercourse cauging passing of [...] reflux Frequency of Episodes most meals 05/04/2011 gonzales s quit eating onions, cut back on lettuce, increased vegetables while taking nexium gastroesophageal reflux Alleviating Factor s medication 05/04/2011 She doesn't have problems when she takes nexium before meals abdominal pain Location in the epigastric area 05/04/2011 None abdominal pain Radiating the back 05/04/2011 None abdominal pain Location in the RLQ 05/04/2011 None abdominal pain Quality s harp 05/04/2011 not extremely sharp, occu rred once, she has a hernia in that area nasal allergies Location in both nares 05/04/2011 None nasal allergies Severity moderate 05/04/2011 None nasal allergies Triggers exposure to grass/pollens 05/04/2011 None nasal allergies Triggers season change 05/04/2011 None sinus pain Quality press ure 05/04/2011 None sinus pain Alleviating Factors medication 05/04/2011 benadryl sinus pain Severity mode rate 05/04/2011 None gastroesophageal reflux Exacerbating Factors medication 05/04/2011 pr ilosec did not work on the GERD abdominal [...] acid 04/19/2011 None gastroesophageal reflux Onset and Re solution ongoing 04/19/2011 None gastroesophageal reflux Quality chronic 04/19/2011 None gastroesophageal reflux Severity moderate 04/19/2011 None gastroesophageal reflux Frequency of Episodes daily 04/19/2011 None gastroesophageal reflux Diet includes spicy foods 04/19/2011 None gastroesophageal reflux Diet includes caffeine 04/19/2011 None gastroesophageal reflux Diet includes chocolate 04/19/2011 None gastroesophageal reflux Triggers meals 04/19/2011 None cough Quality acute 04/19/2011 None cough Quality productive 04/19/2011 None cough Onset of Symptom 3 -4 days ago 04/19/2011 None cough Onset and Resolution gradual in onset 04/19/2011 None cough Significant Medical Conditions asthma 04/19/2011 None fever Quality acute 04/19/2011 None fever Onset of Symptom 1 days ago 04/19/2011 None wheezing Location diffus ladonna 04/19/2011 None wheezing Quality acute 04/19/2011 None wheezing Onset and Resolution worse during the day 04/19/2011 None wheezing Onset of Symptom 3-4 days ago 04/19/2011 None wheezing Severity modera te 04/19/2011 None Symptom Name Status Resu lt Effective Date Notes cough Location in the naresh ng 02/02/2017 None cough Location in the th roat 02/02/2017 None cough Quality acute 02/02/2017 None cough Onset and Resolution ongoing 02/02/2017 None cough Onset of Symptom 2 weeks ago 02/02/2017 None cough Limitation on Activities does not limit activities 02/02/2017 None cough Frequency of Episodes unchanged 02/02/2017 None cough Triggers known all ergens 02/02/2017 None cough Pertinent Findings Denies chest [...] urgency 02/02/2017 None cough Location in the th roat 01/15/2017 None cough Location in the naresh ng 01/15/2017 None cough Quality acute 01/15/2017 None cough Onset and Resolution ongoing 01/15/2017 None cough Onset of Symptom 2 weeks ago 01/15/2017 None cough Limitation on Activities does not limit activities 01/15/2017 None cough Frequency of Episodes unchanged 01/15/2017 None cough Triggers known all ergens 01/15/2017 None cough Pertinent Findings Denies chest discomfort 01/15/2017 None cough Pertinent Findings Denies dyspnea 01/15/2017 None cough Pertinent Findings Denies fever 01/15/2017 None cough Pertinent Findings nasal congestion 01/15/2017 None hypertension Quality int ermittent 01/04/2017 None hypertension Onset and Resolution ongoing 01/04/2017 None hypertension Blood Pressure Values patient checking blood pressure at home - did not bring in readings 01/04/2017 None hypertension Alleviating Factors medication 01/04/2017 None hypertension Pertinent Findings dizziness 01/04/2017 occasioinally- in the mor nings when she first wakes up hypertension Pertinent Findings dyspnea 01/04/2017 occasionally- wears oxyge n at night hypertension Pertinent Findings edema 01/04/2017 wears bilateral knee high madi hose hypothyroid Onset and Resolution ongoing 01/04/2017 None hypothyroid Alleviating Factors medication 01/04/2017 None knee pain Location on th e left 01/04/2017 None knee pain Quality worsen ing 01/04/2017 None knee pain Onset and Resolution gradual in onset 01/04/2017 None knee pain Quality interm ittent 01/04/2017 None knee pain Frequency of Episodes [...] pain with movement 01/04/2017 None hypertension Quality shira tania hypertension 01/04/2017 None hypertension Onset of Symptom during adulthood 01/04/2017 None hypertension Quality int ermittent 09/07/2016 None hypertension Onset and Resolution ongoing 09/07/2016 None hypertension Blood Pressure Values patient checking blood pressure at home - did not bring in readings 09/07/2016 pt reports that occasionally her lbood p ressure will be in the 180's/90's - hypertension Pertinent Findings dizziness 09/07/2016 occasioinally hypertension Pertinent Findings edema 09/07/2016 wears bilateral knee high madi hose hypertension Alleviating Factors medication 09/07/2016 None hypothyroid Onset and Resolution ongoing 09/07/2016 None hypothyroid Alleviating Factors medication 09/07/2016 None hypertension Pertinent Findings dyspnea 09/07/2016 occasionally- wears oxyge n at night gait abnormality Quality unsteady 09/07/2016 None gait abnormality Onset and Resolution ongoing 09/07/2016 None hypertension Quality int ermittent 07/06/2016 None hypertension Onset and Resolution ongoing 07/06/2016 None hypertension Blood Pressure Values patient checking blood pressure at home - did not bring in readings 07/06/2016 None hypertension Pertinent Findings Denies dizziness 07/06/2016 None hypertension Pertinent Findings edema 07/06/2016 None hypertension Quality chr onic 06/08/2016 None hypertension Onset and Resolution ongoing 06/08/2016 None hypertension Onset of Symptom during adulthood 06/08/2016 None hypertension Severity no t consistently severe symptoms, the symptoms fluctuate from no symptoms to anxiety and headaches 06/08/2016 None hypertension Pertinent Findings Denies dizziness 06/08/2016 None hypertension Pertinent Findings dyspnea 06/08/2016 with activity or anxiousn ess hypertension Pertinent Findings edema 06/08/2016 -wearing knee high compre ssion hose joint complaint Location on both knees [...] Alleviating Factors medication 06/08/2016 None 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 None hypothyroid Onset and Resolution ongoing 06/08/2016 None hypothyroid Onset of Symptom during adulthood 06/08/2016 None hypothyroid Alleviating Factors medication 06/08/2016 None hypertension Quality int ermittent 06/08/2016 None hypertension Blood Pressure Values pt [...] the back 06/08/2016 None abdominal pain Quality i ntermittent 06/08/2016 None abdominal pain Onset and Resolution ongoing 06/08/2016 None abdominal pain Onset of Symptom years ago 06/08/2016 None abdominal pain Timing of Episodes in the morning 06/08/2016 None abdominal pain Triggers no known associated factors 06/08/2016 None hypertension Quality int ermittent 04/17/2016 None hypertension Onset and Resolution ongoing 04/17/2016 None hypertension Blood Pressure Values patient checking blood pressure at home - did not bring in readings 04/17/2016 None hypertension Pertinent Findings Denies dizziness 04/17/2016 None hypertension Pertinent Findings edema 04/17/2016 None hypertension Quality chr onic 04/06/2016 None hypertension Onset and Resolution ongoing 04/06/2016 None hypertension Onset of Symptom during adulthood 04/06/2016 None hypertension Blood Pressure Values not checking blood pressure at home 04/06/2016 None hypertension Severity no t consistently severe symptoms, the symptoms fluctuate from [...] Alleviating Factors medication 04/06/2016 None 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 04/06/2016 None hypothyroid Onset and Resolution ongoing 04/06/2016 None hypothyroid Onset of Symptom during adulthood 04/06/2016 None hypothyroid Severity mil d with subclinical signs 04/06/2016 None hypothyroid Frequency of Episodes unchanged 04/06/2016 None hypothyroid Alleviating Factors medication 04/06/2016 None hypertension Quality chr onic 03/09/2016 None hypertension Onset and Resolution ongoing [...] Alleviating Factors medication 03/09/2016 None 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 03/09/2016 None hypothyroid Onset and Resolution ongoing 03/09/2016 None hypothyroid Onset of Symptom during adulthood 03/09/2016 None hypothyroid Severity mil d with subclinical signs 03/09/2016 None hypothyroid Frequency of Episodes unchanged 03/09/2016 None hypothyroid Alleviating Factors medication 03/09/2016 None hypertension Severity no t consistently severe symptoms, the symptoms fluctuate from no symptoms to anxiety and headaches 03/09/2016 None hypertension Frequency of Episodes unchanged 03/09/2016 None hypertension Quality chr onic 01/18/2016 None hypertension Onset and Resolution ongoing [...] Alleviating Factors medication 01/18/2016 None 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 01/18/2016 None hypothyroid Onset and Resolution ongoing 01/18/2016 None hypothyroid Onset of Symptom during adulthood 01/18/2016 None hypothyroid Severity mil d with subclinical signs 01/18/2016 None hypothyroid Frequency of Episodes unchanged 01/18/2016 None hypothyroid Alleviating Factors medication 01/18/2016 None hypertension Quality chr onic 09/09/2015 None hypertension Onset and Resolution ongoing [...] Left hurts but not constantly 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 09/09/2015 None hypothyroid Onset and Resolution ongoing 09/09/2015 None hypothyroid Onset of Symptom during adulthood 09/09/2015 None hypothyroid Severity mil d with subclinical signs 09/09/2015 None hypothyroid Frequency of Episodes unchanged 09/09/2015 None hypertension Quality chr onic 12/25/2014 None hypertension Onset and Resolution ongoing 12/25/2014 None hypertension Onset of Symptom during adulthood 12/25/2014 None hypertension Blood Pressure Values not checking blood pressure at home 12/25/2014 None hypertension Pertinent Findings Denies anxiety 12/25/2014 None hypertension Pertinent Findings edema 12/25/2014 None hypertension Pertinent Findings Denies dizziness 12/25/2014 None hypertension Pertinent Findings dyspnea 12/25/2014 with activity hypertension Quality chr onic 10/13/2014 None hypertension Onset and Resolution ongoing 10/13/2014 None hypertension Onset of Symptom during adulthood 10/13/2014 None hypertension Blood Pressure Values not checking blood pressure at home 10/13/2014 None hypertension Pertinent Findings Denies anxiety 10/13/2014 None hypertension Quality chr onic 08/28/2014 None hypertension Onset and Resolution ongoing [...] which is her heart beat arrhythmia Quality irreg ular beats 08/28/2014 None arrhythmia Onset and Resolution ongoing 08/28/2014 Says that the Toprol help ed this but made her pulse too low arrhythmia Pertinent Findings dizziness 08/28/2014 None arrhythmia Pertinent Findings dyspnea 08/28/2014 None dyspnea Onset and Resolution ongoing 05/07/2014 None dyspnea Quality chronic 05/07/2014 waking up at night, wearing oxgyen but q uestions needing an overnight oxygen study cough Location in the naresh ng 05/07/2014 None cough Quality acute 05/07/2014 None cough Onset and Resolution ongoing 05/07/2014 None cough Onset of Symptom 2 -3 days ago 05/07/2014 None cough Limitation on Activities does not limit activities 05/07/2014 None cough Frequency of Episodes increasing 05/07/2014 None cough Triggers known all ergens 05/07/2014 None cough Alleviating Factors OTC medications 05/07/2014 None cough Pertinent Findings dyspnea 05/07/2014 None cough Pertinent Findings Denies fever 05/07/2014 None cough Pertinent Findings Denies ill contacts 05/07/2014 None cough Pertinent Findings Denies tachypnea 05/07/2014 None cough Pertinent Findings sputum production 05/07/2014 None cough Significant Medical Conditions pulmonary disease 05/07/2014 None hypertension Quality chr onic 04/16/2014 None hypertension Onset and Resolution ongoing 04/16/2014 None hypertension Onset of Symptom during adulthood 04/16/2014 None hypertension Pertinent Findings Denies anxiety 04/16/2014 None hypertension Blood Pressure Values not checking blood pressure at home 04/16/2014 None skin lesion Onset and Resolution ongoing 01/27/2014 None skin lesion Onset of Symptom during adulthood 01/27/2014 None skin lesion Quality acute 01/27/2014 irritated lesion right shoulder blade an d left forearm skin lesion Severity mild 01/27/2014 None skin lesion Frequency of Episodes increasing 01/27/2014 None skin lesion Triggers no known associated factors 01/27/2014 None fatigue Quality chronic 01/21/2014 None hypertension Quality chr onic 01/21/2014 None hypertension Onset and Resolution ongoing 01/21/2014 None hypertension Blood Pressure Values pt checking blood pressure - see scanned document 01/21/2014 None fatigue Onset and Resolution ongoing 01/21/2014 states she is not sleepin g well. needs order to cont oxygen mole [...] anxiety 01/21/2014 None wrist pain Location on t he right 01/07/2014 None wrist pain Pertinent Findings pain with movement 01/07/2014 None wrist pain Pertinent Findings Denies numbness 01/07/2014 None wrist pain Pertinent Findings Denies decreased range of motion 01/07/2014 None wrist pain Pertinent Findings swelling 01/07/2014 None wrist pain Pertinent Findings Denies stiffness 01/07/2014 None wrist pain Quality chron ic 01/07/2014 None wrist pain Severity mode rate 01/07/2014 None sinus congestion Pertinent Findings cough 12/26/2013 None sinus congestion Pertinent Findings Denies decreased energy level 12/26/2013 None sinus congestion Pertinent Findings Denies fever 12/26/2013 None cough Location in the th roat 12/26/2013 None cough Pertinent Findings Denies fever 12/26/2013 None cough Pertinent Findings Denies dyspnea 12/26/2013 None sinus congestion Onset and Resolution ongoing 12/26/2013 None cough Quality acute 12/26/2013 None cough Onset and Resolution ongoing 12/26/2013 [...] nasal congestion 11/12/2013 None sore throat Location dif fusely 11/12/2013 None sore throat Quality acute 11/12/2013 None sore throat Onset and Resolution ongoing 11/12/2013 None sore throat Onset of Symptom 2 weeks ago 11/12/2013 None sore throat Limitation on Activities does not limit oral intake 11/12/2013 None sore throat Triggers all ergens 11/12/2013 None sore throat Pertinent Findings Denies [...] Findings Denies vomiting 10/09/2013 None hypertension Quality chr onic 04/03/2013 None hypertension Quality sta ble 04/03/2013 None hypertension Onset and Resolution ongoing 04/03/2013 None hypertension Pertinent Findings Denies decreased energy 04/03/2013 None hypertension Alleviating Factors medication 04/03/2013 None hypertension Exacerbating Factors stress 04/03/2013 None hypertension Blood Pressure Values patient checking blood pressure at home - did not bring in readings 04/03/2013 None hypertension Severity mi ld 04/03/2013 None hypertension Significant Family History hypertension 04/03/2013 None edema Quality chronic 01/06/2013 None edema Quality pitting 01/06/2013 None edema Onset and Resolution ongoing 01/06/2013 None edema Location on the ri ght ankle 01/06/2013 None edema Location on the le ft ankle 01/06/2013 None edema Alleviating Factors medication 01/06/2013 None edema Pertinent Findings Denies limb pain / tenderness 01/06/2013 None edema Pertinent Findings Denies limb redness 01/06/2013 None edema Pertinent Findings Denies palpitations 01/06/2013 None edema Pertinent Findings Denies tachycardia 01/06/2013 None edema Pertinent Findings Denies dyspnea 01/06/2013 None hypertension Quality imp roving 01/06/2013 None hypertension Blood Pressure Values not [...] Findings Denies lethargy 01/06/[address] ress 01/06/2013 None hypertension Alleviating Factors medication 01/06/2013 None hypertension Exacerbating Factors stress 01/06/2013 None hypertension Exacerbating Factors change in dietary habits 01/06/2013 None cough Location in the roat 11/21/2012 None cough Quality interrupts sleep 11/21/2012 None cough Quality productive 11/21/2012 clear cough Pertinent Findings hoarseness 11/21/2012 states she was working [facility] [employer] 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 cough Triggers known all ergens 11/21/2012 None cough Significant Medical Conditions pulmonary disease 11/21/2012 None hypertension Quality chr onic 10/28/2012 None hypertension Onset and Resolution ongoing 10/28/2012 None hypertension Blood Pressure Values not checking blood pressure at home 10/28/2012 None hypertension Onset of Symptom during adulthood 10/28/2012 None hypertension Blood Pressure Values patient checking blood pressure at home - did not bring in readings 10/28/2012 None hypertension Severity mi ld 10/28/[address] ress 10/28/2012 None hypertension Alleviating Factors medication 10/28/2012 None hypertension Pertinent Findings Denies anxiety 10/28/2012 None hypertension Pertinent Findings Denies decreased energy 10/28/2012 None edema Quality chronic 10/28/2012 None edema Quality pitting 10/28/2012 None edema Onset and Resolution ongoing 10/28/2012 None edema Location on both l egs 10/28/2012 None edema Triggers prolonged sitting 10/28/2012 None edema Alleviating Factors medication 10/28/2012 None edema Alleviating Factors recumbency 10/28/2012 None edema Exacerbating Factors salty foods 10/28/2012 None edema Exacerbating Factors standing 10/28/2012 None hypertension Quality chr onic 09/30/2012 None edema Quality chronic 09/30/2012 None edema Quality pitting 09/30/2012 None edema Onset and Resolution ongoing 09/30/2012 None edema Location on both l egs 09/30/2012 None hypertension Onset and Resolution ongoing 09/30/2012 None hypertension Onset of Symptom during adulthood 09/30/2012 None hypertension Blood Pressure Values patient checking blood pressure at home - did not bring in readings 09/30/2012 None hypertension Severity mi ld 09/30/[address] ress 09/30/2012 None hypertension Alleviating Factors medication 09/30/2012 None hypertension Pertinent Findings Denies anxiety 09/30/2012 None hypertension Pertinent Findings Denies decreased energy 09/30/2012 None hypertension Quality chr onic 08/14/2012 None hypertension Onset and Resolution ongoing 08/14/2012 None cellulitis Quality impro ving 08/14/2012 None hypertension Onset of Symptom during adulthood 08/14/2012 None hypertension Blood Pressure Values patient checking blood pressure at home - did not bring in readings 08/14/2012 None hypertension Severity mi ld 08/14/2012 None hypertension Pertinent Findings Denies anxiety 08/14/2012 None hypertension Pertinent Findings Denies decreased energy 08/14/[address] ress 08/14/2012 None hypertension Alleviating Factors medication 08/14/2012 None edema Quality chronic 08/05/2012 None hypertension Blood Pressure Values not checking blood pressure at home 08/05/2012 None edema Quality chronic 07/15/2012 None edema Onset and Resolution ongoing 07/15/2012 having more in her surg k nee hypertension Quality [facility] onic 07/15/2012 None hypertension Onset and Resolution ongoing [...] nausea 07/15/2012 None edema Location on both l egs 07/15/2012 None edema Alleviating Factors recumbency 07/15/2012 None hypertension Onset of Symptom during adulthood 07/15/2012 None hypertension Severity mi ld 07/15/[address] ress 07/15/2012 None hypertension Alleviating Factors medication 07/15/2012 None hypertension Exacerbating Factors stress 07/15/2012 None hypertension Exacerbating Factors change in dietary habits 07/15/2012 None hypertension Pertinent Findings Denies anxiety 07/15/2012 None hypertension Pertinent Findings Denies confusion 07/15/2012 None hypertension Pertinent Findings edema 07/15/2012 None 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 05/27/2012 None skin lesion Quality pigm ented 05/27/2012 None skin lesion Onset and Resolution [...] upper arm 04/23/2012 None mole check Quality oglesby ing 04/23/2012 None mole check Quality chron ic 04/23/2012 None mole check Color brown 04/23/2012 None mole check Changing Moles changing 04/23/2012 None mole check Changing Moles becoming thicker 04/23/2012 None mole check Onset and Resolution gradual in onset 04/23/2012 None mole check Limitation on Activities does not limit activities 04/23/2012 None mole check Severity mild 04/23/2012 None mole check Prior Treatments previously untreated 04/23/2012 None mole check Triggers no k nown triggers 04/23/2012 None mole check Significant History skin cancer 04/23/2012 None mole check Alleviating Factors no alleviating factors 04/23/2012 None mole check Pertinent Findings Denies flushing 04/23/2012 None mole check Pertinent Findings itching 04/23/2012 None mole check Pertinent Findings Denies tenderness 04/23/2012 None hypertension Quality chr onic 03/25/2012 None hypertension Onset and Resolution ongoing 03/25/2012 None hypertension Onset of Symptom during adulthood 03/25/2012 None hypertension Severity no t consistently severe symptoms, the symptoms fluctuate from no symptoms to anxiety and headaches 03/25/2012 None knee pain Location in th e anterior region 03/25/2012 None knee pain Quality chronic 03/25/2012 None knee pain Limitation on Activities allows weight bearing activity 03/25/2012 None knee pain Significant Medical Conditions degenerative joint disease 03/25/2012 None knee pain Significant Medications NSAID's 03/25/2012 takes 2 tylenol once lindsay y knee pain Mechanism of injury unknown 03/25/2012 None knee pain Alleviating Factors ice compression 03/25/2012 None knee pain Alleviating Factors NSAID's 03/25/2012 None knee pain Alleviating Factors rest 03/25/2012 None knee pain Exacerbating Factors exertion 03/25/2012 None knee pain Exacerbating Factors weight bearing 03/25/2012 None knee pain Frequency of Episodes increasing 03/25/[address] ress 03/25/2012 None hypertension Alleviating Factors medication 03/25/2012 None hypertension Quality chr onic 03/12/2012 None hypertension Onset and Resolution ongoing 03/12/2012 None hypertension Onset of Symptom during adulthood 03/12/2012 None hypertension Blood Pressure Values patient checking blood pressure at home - did not bring in readings 03/12/2012 None hypertension Severity no t consistently severe symptoms, the symptoms fluctuate from no symptoms to anxiety and headaches 03/12/2012 None hypertension Frequency of Episodes unchanged 03/12/[address] ress 03/12/2012 None hypertension Alleviating Factors medication 03/12/2012 None hypertension Pertinent Findings Denies dizziness 03/12/2012 None hypertension Pertinent Findings Denies dyspnea 03/12/2012 None hypertension Pertinent Findings Denies orthostatic hypotension 03/12/2012 None hypertension Pertinent Findings Denies palpitations 03/12/2012 None hypertension Pertinent Findings Denies tachycardia 03/12/2012 None edema Quality acute 01/23/2012 None edema Onset and Resolution ongoing 01/23/2012 None hypertension Quality chr onic 01/23/2012 None hypertension Onset and Resolution ongoing 01/23/2012 None edema Limitation on Activities does not limit activities 01/23/2012 None edema Frequency of Episodes daily 01/23/2012 None edema Significant Medications diuretics 01/23/2012 None edema Triggers diet fraser ge 01/23/2012 None edema Triggers prolonged sitting 01/23/2012 None edema Alleviating Factors recumbency 01/23/2012 None edema Alleviating Factors medication 01/23/2012 None edema Exacerbating Factors salty foods 01/23/2012 None edema Location on both l egs 01/23/2012 None edema Pertinent Findings Denies back pain 01/23/2012 None edema Pertinent Findings Denies dark urine 01/23/2012 None edema Pertinent Findings Denies dyspnea 01/23/[address] ress 01/23/2012 None hypertension Quality imp roving 01/23/2012 None hypertension Onset of Symptom during adulthood 01/23/2012 None hypertension Blood Pressure Values Stage 0:SBP 130-139 mmHg / DBP 85-89 mmHg 01/23/2012 None hypertension Severity mi ld 01/23/2012 None breast complaint Location in the left nipple 01/12/2012 None breast complaint Quality skin color change 01/12/2012 None breast complaint Quality pain 01/12/2012 pt describes it as discom fort and wears a kleenex in her bra [...] worsening 12/25/2011 None blood pressure followup Blood Pressu re Values pt checking blood pressure - see scanned document 12/25/2011 None blood pressure followup Blood Pressu re Values Stage 2:SBP 160-179 mmHg / DBP [...] 12/25/2011 None blood pressure followup Onset and Re solution ongoing 12/25/2011 None blood pressure followup Frequency of Episodes unchanged 12/25/2011 Non e blood pressure followup Alleviating Factor s medication 12/04/2011 None blood pressure followup Blood Pressu re Values not checking blood pressure at home 12/04/2011 None blood pressure followup Frequency of Episodes unchanged 12/04/2011 Non e blood pressure followup Onset and Re solution ongoing 12/04/2011 None blood pressure followup Onset [...] worsening 09/20/2011 None blood pressure followup Blood Pressu re Values pt checking blood pressure - see scanned document 09/20/2011 None blood pressure followup Blood Pressu re Values Stage 2:SBP 160-179 mmHg / DBP [...] Pertinent Findings obesity 09/20/2011 None hypertension Quality chr onic 09/06/2011 None hypertension Quality wor sening 09/06/2011 None anxiety Quality chronic 09/06/2011 None dysuria Quality chronic 09/06/2011 None dysuria Onset and Resolution ongoing. 09/06/2011 Thinks it's better but wa nts to make sure her UTI is gone. hypertension Onset and Resolution ongoing 09/06/2011 None hypertension Blood Pressure Values Stage 1:SBP 140-159 mmHg / DBP 90-99 mmHg 09/06/2011 None hypertension Frequency of Episodes increasing 09/06/[address] ress 09/06/2011 None anxiety Onset and Resolution ongoing 09/06/2011 None anxiety Onset of Symptom 2 years ago 09/06/2011 but worse over the past f ew months. anxiety Limitation on Activities does not limit activities 09/06/2011 None anxiety Frequency of Episodes increasing 09/06/2011 None anxiety Triggers stress 09/06/2011 None anxiety Triggers family discord 09/06/2011 None urinary frequency Onset and Resolution ongoing 08/30/2011 on augmentin, but causing stomach upset. cont to have some back pain hypertension Quality chr onic 08/30/2011 None hypertension Onset and Resolution ongoing 08/30/2011 None hypertension Onset of Symptom during adulthood 08/30/2011 None hypertension Blood Pressure Values patient checking blood pressure at home - did not bring in readings 08/30/2011 None hypertension Severity mi ld 08/30/[address] ress 08/30/2011 None urinary frequency Quality acute 08/30/2011 None urinary frequency Triggers activity 08/30/2011 Pt with UTI - thinks it m ay be due to intercourse cauging passing of [...] reflux Frequency of Episodes most meals 05/04/2011 gonzales s quit eating onions, cut back on lettuce, increased vegetables while taking nexium gastroesophageal reflux Alleviating Factor s medication 05/04/2011 She doesn't have problems when she takes nexium before meals abdominal pain Location in the epigastric area 05/04/2011 None abdominal pain Radiating the back 05/04/2011 None abdominal pain Location in the RLQ 05/04/2011 None abdominal pain Quality s harp 05/04/2011 not extremely sharp, occu rred once, she has a hernia in that area nasal allergies Location in both nares 05/04/2011 None nasal allergies Severity moderate 05/04/2011 None nasal allergies Triggers exposure to grass/pollens 05/04/2011 None nasal allergies Triggers season change 05/04/2011 None sinus pain Quality press ure 05/04/2011 None sinus pain Alleviating Factors medication 05/04/2011 benadryl sinus pain Severity mode rate 05/04/2011 None gastroesophageal reflux Exacerbating Factors medication 05/04/2011 pr ilosec did not work on the GERD abdominal [...] acid 04/19/2011 None gastroesophageal reflux Onset and Re solution ongoing 04/19/2011 None gastroesophageal reflux Quality chronic 04/19/2011 None gastroesophageal reflux Severity moderate 04/19/2011 None gastroesophageal reflux Frequency of Episodes daily 04/19/2011 None gastroesophageal reflux Diet includes spicy foods 04/19/2011 None gastroesophageal reflux Diet includes caffeine 04/19/2011 None gastroesophageal reflux Diet includes chocolate 04/19/2011 None gastroesophageal reflux Triggers meals 04/19/2011 None cough Quality acute 04/19/2011 None cough Quality productive 04/19/2011 None cough Onset of Symptom 3 -4 days ago 04/19/2011 None cough Onset and Resolution gradual in onset 04/19/2011 None cough Significant Medical Conditions asthma 04/19/2011 None fever Quality acute 04/19/2011 None fever Onset of Symptom 1 days ago 04/19/2011 None wheezing Location diffus ladonna 04/19/2011 None wheezing Quality acute 04/19/2011 None wheezing Onset and Resolution worse during the day 04/19/2011 None wheezing Onset of Symptom 3-4 days ago 04/19/2011 None wheezing Severity modera te 04/19/2011 None Symptom Name Status Resu lt Effective Date Notes cough Location in the naresh ng 02/05/2017 None cough Location in the th roat 02/05/2017 None cough Quality acute 02/05/2017 None cough Onset and Resolution ongoing 02/05/2017 None cough Onset of Symptom 2 weeks ago 02/05/2017 None cough Limitation on Activities does not limit activities 02/05/2017 None cough Frequency of Episodes unchanged 02/05/2017 None cough Triggers known all ergens 02/05/2017 None cough Pertinent Findings Denies chest discomfort 02/05/2017 None cough Pertinent Findings Denies dyspnea 02/05/2017 None cough Pertinent Findings Denies fever 02/05/2017 None cough Pertinent Findings nasal congestion 02/05/2017 None cough Location in the naresh ng 02/02/2017 None cough Location in the th roat 02/02/2017 None cough Quality acute 02/02/2017 None cough Onset and Resolution ongoing 02/02/2017 None cough Onset of Symptom 2 weeks ago 02/02/2017 None cough Limitation on Activities does not limit activities 02/02/2017 None cough Frequency of Episodes unchanged 02/02/2017 None cough Triggers known all ergens 02/02/2017 None cough Pertinent Findings Denies chest [...] urgency 02/02/2017 None cough Location in the th roat 01/15/2017 None cough Location in the naresh ng 01/15/2017 None cough Quality acute 01/15/2017 None cough Onset and Resolution ongoing 01/15/2017 None cough Onset of Symptom 2 weeks ago 01/15/2017 None cough Limitation on Activities does not limit activities 01/15/2017 None cough Frequency of Episodes unchanged 01/15/2017 None cough Triggers known all ergens 01/15/2017 None cough Pertinent Findings Denies chest discomfort 01/15/2017 None cough Pertinent Findings Denies dyspnea 01/15/2017 None cough Pertinent Findings Denies fever 01/15/2017 None cough Pertinent Findings nasal congestion 01/15/2017 None hypertension Quality int ermittent 01/04/2017 None hypertension Onset and Resolution ongoing 01/04/2017 None hypertension Blood Pressure Values patient checking blood pressure at home - did not bring in readings 01/04/2017 None hypertension Alleviating Factors medication 01/04/2017 None hypertension Pertinent Findings dizziness 01/04/2017 occasioinally- in the mor nings when she first wakes up hypertension Pertinent Findings dyspnea 01/04/2017 occasionally- wears oxyge n at night hypertension Pertinent Findings edema 01/04/2017 wears bilateral knee high madi hose hypothyroid Onset and Resolution ongoing 01/04/2017 None hypothyroid Alleviating Factors medication 01/04/2017 None knee pain Location on th e left 01/04/2017 None knee pain Quality worsen ing 01/04/2017 None knee pain Onset and Resolution gradual in onset 01/04/2017 None knee pain Quality interm ittent 01/04/2017 None knee pain Frequency of Episodes [...] pain with movement 01/04/2017 None hypertension Quality shira tania hypertension 01/04/2017 None hypertension Onset of Symptom during adulthood 01/04/2017 None hypertension Quality int ermittent 09/07/2016 None hypertension Onset and Resolution ongoing 09/07/2016 None hypertension Blood Pressure Values patient checking blood pressure at home - did not bring in readings 09/07/2016 pt reports that occasionally her lbood p ressure will be in the 180's/90's - hypertension Pertinent Findings dizziness 09/07/2016 occasioinally hypertension Pertinent Findings edema 09/07/2016 wears bilateral knee high madi hose hypertension Alleviating Factors medication 09/07/2016 None hypothyroid Onset and Resolution ongoing 09/07/2016 None hypothyroid Alleviating Factors medication 09/07/2016 None hypertension Pertinent Findings dyspnea 09/07/2016 occasionally- wears oxyge n at night gait abnormality Quality unsteady 09/07/2016 None gait abnormality Onset and Resolution ongoing 09/07/2016 None hypertension Quality int ermittent 07/06/2016 None hypertension Onset and Resolution ongoing 07/06/2016 None hypertension Blood Pressure Values patient checking blood pressure at home - did not bring in readings 07/06/2016 None hypertension Pertinent Findings Denies dizziness 07/06/2016 None hypertension Pertinent Findings edema 07/06/2016 None hypertension Quality chr onic 06/08/2016 None hypertension Onset and Resolution ongoing 06/08/2016 None hypertension Onset of Symptom during adulthood 06/08/2016 None hypertension Severity no t consistently severe symptoms, the symptoms fluctuate from no symptoms to anxiety and headaches 06/08/2016 None hypertension Pertinent Findings Denies dizziness 06/08/2016 None hypertension Pertinent Findings dyspnea 06/08/2016 with activity or anxiousn ess hypertension Pertinent Findings edema 06/08/2016 -wearing knee high compre ssion hose joint complaint Location on both knees [...] Alleviating Factors medication 06/08/2016 None 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 None hypothyroid Onset and Resolution ongoing 06/08/2016 None hypothyroid Onset of Symptom during adulthood 06/08/2016 None hypothyroid Alleviating Factors medication 06/08/2016 None hypertension Quality int ermittent 06/08/2016 None hypertension Blood Pressure Values pt [...] the back 06/08/2016 None abdominal pain Quality i ntermittent 06/08/2016 None abdominal pain Onset and Resolution ongoing 06/08/2016 None abdominal pain Onset of Symptom years ago 06/08/2016 None abdominal pain Timing of Episodes in the morning 06/08/2016 None abdominal pain Triggers no known associated factors 06/08/2016 None hypertension Quality int ermittent 04/17/2016 None hypertension Onset and Resolution ongoing 04/17/2016 None hypertension Blood Pressure Values patient checking blood pressure at home - did not bring in readings 04/17/2016 None hypertension Pertinent Findings Denies dizziness 04/17/2016 None hypertension Pertinent Findings edema 04/17/2016 None hypertension Quality chr onic 04/06/2016 None hypertension Onset and Resolution ongoing 04/06/2016 None hypertension Onset of Symptom during adulthood 04/06/2016 None hypertension Blood Pressure Values not checking blood pressure at home 04/06/2016 None hypertension Severity no t consistently severe symptoms, the symptoms fluctuate from [...] Alleviating Factors medication 04/06/2016 None 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 04/06/2016 None hypothyroid Onset and Resolution ongoing 04/06/2016 None hypothyroid Onset of Symptom during adulthood 04/06/2016 None hypothyroid Severity mil d with subclinical signs 04/06/2016 None hypothyroid Frequency of Episodes unchanged 04/06/2016 None hypothyroid Alleviating Factors medication 04/06/2016 None hypertension Quality chr onic 03/09/2016 None hypertension Onset and Resolution ongoing [...] Alleviating Factors medication 03/09/2016 None 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 03/09/2016 None hypothyroid Onset and Resolution ongoing 03/09/2016 None hypothyroid Onset of Symptom during adulthood 03/09/2016 None hypothyroid Severity mil d with subclinical signs 03/09/2016 None hypothyroid Frequency of Episodes unchanged 03/09/2016 None hypothyroid Alleviating Factors medication 03/09/2016 None hypertension Severity no t consistently severe symptoms, the symptoms fluctuate from no symptoms to anxiety and headaches 03/09/2016 None hypertension Frequency of Episodes unchanged 03/09/2016 None hypertension Quality chr onic 01/18/2016 None hypertension Onset and Resolution ongoing [...] Alleviating Factors medication 01/18/2016 None 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 01/18/2016 None hypothyroid Onset and Resolution ongoing 01/18/2016 None hypothyroid Onset of Symptom during adulthood 01/18/2016 None hypothyroid Severity mil d with subclinical signs 01/18/2016 None hypothyroid Frequency of Episodes unchanged 01/18/2016 None hypothyroid Alleviating Factors medication 01/18/2016 None hypertension Quality chr onic 09/09/2015 None hypertension Onset and Resolution ongoing [...] Left hurts but not constantly 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 09/09/2015 None hypothyroid Onset and Resolution ongoing 09/09/2015 None hypothyroid Onset of Symptom during adulthood 09/09/2015 None hypothyroid Severity mil d with subclinical signs 09/09/2015 None hypothyroid Frequency of Episodes unchanged 09/09/2015 None hypertension Quality chr onic 12/25/2014 None hypertension Onset and Resolution ongoing 12/25/2014 None hypertension Onset of Symptom during adulthood 12/25/2014 None hypertension Blood Pressure Values not checking blood pressure at home 12/25/2014 None hypertension Pertinent Findings Denies anxiety 12/25/2014 None hypertension Pertinent Findings edema 12/25/2014 None hypertension Pertinent Findings Denies dizziness 12/25/2014 None hypertension Pertinent Findings dyspnea 12/25/2014 with activity hypertension Quality chr onic 10/13/2014 None hypertension Onset and Resolution ongoing 10/13/2014 None hypertension Onset of Symptom during adulthood 10/13/2014 None hypertension Blood Pressure Values not checking blood pressure at home 10/13/2014 None hypertension Pertinent Findings Denies anxiety 10/13/2014 None hypertension Quality chr onic 08/28/2014 None hypertension Onset and Resolution ongoing [...] which is her heart beat arrhythmia Quality irreg ular beats 08/28/2014 None arrhythmia Onset and Resolution ongoing 08/28/2014 Says that the Toprol help ed this but made her pulse too low arrhythmia Pertinent Findings dizziness 08/28/2014 None arrhythmia Pertinent Findings dyspnea 08/28/2014 None dyspnea Onset and Resolution ongoing 05/07/2014 None dyspnea Quality chronic 05/07/2014 waking up at night, wearing oxgyen but q uestions needing an overnight oxygen study cough Location in the naresh ng 05/07/2014 None cough Quality acute 05/07/2014 None cough Onset and Resolution ongoing 05/07/2014 None cough Onset of Symptom 2 -3 days ago 05/07/2014 None cough Limitation on Activities does not limit activities 05/07/2014 None cough Frequency of Episodes increasing 05/07/2014 None cough Triggers known all ergens 05/07/2014 None cough Alleviating Factors OTC medications 05/07/2014 None cough Pertinent Findings dyspnea 05/07/2014 None cough Pertinent Findings Denies fever 05/07/2014 None cough Pertinent Findings Denies ill contacts 05/07/2014 None cough Pertinent Findings Denies tachypnea 05/07/2014 None cough Pertinent Findings sputum production 05/07/2014 None cough Significant Medical Conditions pulmonary disease 05/07/2014 None hypertension Quality chr onic 04/16/2014 None hypertension Onset and Resolution ongoing 04/16/2014 None hypertension Onset of Symptom during adulthood 04/16/2014 None hypertension Pertinent Findings Denies anxiety 04/16/2014 None hypertension Blood Pressure Values not checking blood pressure at home 04/16/2014 None skin lesion Onset and Resolution ongoing 01/27/2014 None skin lesion Onset of Symptom during adulthood 01/27/2014 None skin lesion Quality acute 01/27/2014 irritated lesion right shoulder blade an d left forearm skin lesion Severity mild 01/27/2014 None skin lesion Frequency of Episodes increasing 01/27/2014 None skin lesion Triggers no known associated factors 01/27/2014 None fatigue Quality chronic 01/21/2014 None hypertension Quality chr onic 01/21/2014 None hypertension Onset and Resolution ongoing 01/21/2014 None hypertension Blood Pressure Values pt checking blood pressure - see scanned document 01/21/2014 None fatigue Onset and Resolution ongoing 01/21/2014 states she is not sleepin g well. needs order to cont oxygen mole [...] anxiety 01/21/2014 None wrist pain Location on t he right 01/07/2014 None wrist pain Pertinent Findings pain with movement 01/07/2014 None wrist pain Pertinent Findings Denies numbness 01/07/2014 None wrist pain Pertinent Findings Denies decreased range of motion 01/07/2014 None wrist pain Pertinent Findings swelling 01/07/2014 None wrist pain Pertinent Findings Denies stiffness 01/07/2014 None wrist pain Quality chron ic 01/07/2014 None wrist pain Severity mode rate 01/07/2014 None sinus congestion Pertinent Findings cough 12/26/2013 None sinus congestion Pertinent Findings Denies decreased energy level 12/26/2013 None sinus congestion Pertinent Findings Denies fever 12/26/2013 None cough Location in the th roat 12/26/2013 None cough Pertinent Findings Denies fever 12/26/2013 None cough Pertinent Findings Denies dyspnea 12/26/2013 None sinus congestion Onset and Resolution ongoing 12/26/2013 None cough Quality acute 12/26/2013 None cough Onset and Resolution ongoing 12/26/2013 [...] nasal congestion 11/12/2013 None sore throat Location dif fusely 11/12/2013 None sore throat Quality acute 11/12/2013 None sore throat Onset and Resolution ongoing 11/12/2013 None sore throat Onset of Symptom 2 weeks ago 11/12/2013 None sore throat Limitation on Activities does not limit oral intake 11/12/2013 None sore throat Triggers all ergens 11/12/2013 None sore throat Pertinent Findings Denies [...] Findings Denies vomiting 10/09/2013 None hypertension Quality chr onic 04/03/2013 None hypertension Quality sta ble 04/03/2013 None hypertension Onset and Resolution ongoing 04/03/2013 None hypertension Pertinent Findings Denies decreased energy 04/03/2013 None hypertension Alleviating Factors medication 04/03/2013 None hypertension Exacerbating Factors stress 04/03/2013 None hypertension Blood Pressure Values patient checking blood pressure at home - did not bring in readings 04/03/2013 None hypertension Severity mi ld 04/03/2013 None hypertension Significant Family History hypertension 04/03/2013 None edema Quality chronic 01/06/2013 None edema Quality pitting 01/06/2013 None edema Onset and Resolution ongoing 01/06/2013 None edema Location on the ri ght ankle 01/06/2013 None edema Location on the le ft ankle 01/06/2013 None edema Alleviating Factors medication 01/06/2013 None edema Pertinent Findings Denies limb pain / tenderness 01/06/2013 None edema Pertinent Findings Denies limb redness 01/06/2013 None edema Pertinent Findings Denies palpitations 01/06/2013 None edema Pertinent Findings Denies tachycardia 01/06/2013 None edema Pertinent Findings Denies dyspnea 01/06/2013 None hypertension Quality imp roving 01/06/2013 None hypertension Blood Pressure Values not [...] Findings Denies lethargy 01/06/[address] ress 01/06/2013 None hypertension Alleviating Factors medication 01/06/2013 None hypertension Exacerbating Factors stress 01/06/2013 None hypertension Exacerbating Factors change in dietary habits 01/06/2013 None cough Location in the roat 11/21/2012 None cough Quality interrupts sleep 11/21/2012 None cough Quality productive 11/21/2012 clear cough Pertinent Findings hoarseness 11/21/2012 states she was working [facility] 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 cough Triggers known all ergens 11/21/2012 None cough Significant Medical Conditions pulmonary disease 11/21/2012 None hypertension Quality chr onic 10/28/2012 None hypertension Onset and Resolution ongoing 10/28/2012 None hypertension Blood Pressure Values not checking blood pressure at home 10/28/2012 None hypertension Onset of Symptom during adulthood 10/28/2012 None hypertension Blood Pressure Values patient checking blood pressure at home - did not bring in readings 10/28/2012 None hypertension Severity mi ld 10/28/[address] ress 10/28/2012 None hypertension Alleviating Factors medication 10/28/2012 None hypertension Pertinent Findings Denies anxiety 10/28/2012 None hypertension Pertinent Findings Denies decreased energy 10/28/2012 None edema Quality chronic 10/28/2012 None edema Quality pitting 10/28/2012 None edema Onset and Resolution ongoing 10/28/2012 None edema Location on both l egs 10/28/2012 None edema Triggers prolonged sitting 10/28/2012 None edema Alleviating Factors medication 10/28/2012 None edema Alleviating Factors recumbency 10/28/2012 None edema Exacerbating Factors salty foods 10/28/2012 None edema Exacerbating Factors standing 10/28/2012 None hypertension Quality chr onic 09/30/2012 None edema Quality chronic 09/30/2012 None edema Quality pitting 09/30/2012 None edema Onset and Resolution ongoing 09/30/2012 None edema Location on both l egs 09/30/2012 None hypertension Onset and Resolution ongoing 09/30/2012 None hypertension Onset of Symptom during adulthood 09/30/2012 None hypertension Blood Pressure Values patient checking blood pressure at home - did not bring in readings 09/30/2012 None hypertension Severity mi ld 09/30/[address] ress 09/30/2012 None hypertension Alleviating Factors medication 09/30/2012 None hypertension Pertinent Findings Denies anxiety 09/30/2012 None hypertension Pertinent Findings Denies decreased energy 09/30/2012 None hypertension Quality chr onic 08/14/2012 None hypertension Onset and Resolution ongoing 08/14/2012 None cellulitis Quality impro ving 08/14/2012 None hypertension Onset of Symptom during adulthood 08/14/2012 None hypertension Blood Pressure Values patient checking blood pressure at home - did not bring in readings 08/14/2012 None hypertension Severity mi ld 08/14/2012 None hypertension Pertinent Findings Denies anxiety 08/14/2012 None hypertension Pertinent Findings Denies decreased energy 08/14/[address] ress 08/14/2012 None hypertension Alleviating Factors medication 08/14/2012 None edema Quality chronic 08/05/2012 None hypertension Blood Pressure Values not checking blood pressure at home 08/05/2012 None edema Quality chronic 07/15/2012 None edema Onset and Resolution ongoing 07/15/2012 having more in her surg k nee hypertension Quality [facility] onic 07/15/2012 None hypertension Onset and Resolution ongoing [...] nausea 07/15/2012 None edema Location on both l egs 07/15/2012 None edema Alleviating Factors recumbency 07/15/2012 None hypertension Onset of Symptom during adulthood 07/15/2012 None hypertension Severity mi ld 07/15/[address] ress 07/15/2012 None hypertension Alleviating Factors medication 07/15/2012 None hypertension Exacerbating Factors stress 07/15/2012 None hypertension Exacerbating Factors change in dietary habits 07/15/2012 None hypertension Pertinent Findings Denies anxiety 07/15/2012 None hypertension Pertinent Findings Denies confusion 07/15/2012 None hypertension Pertinent Findings edema 07/15/2012 None 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 05/27/2012 None skin lesion Quality pigm ented 05/27/2012 None skin lesion Onset and Resolution [...] upper arm 04/23/2012 None mole check Quality oglesby ing 04/23/2012 None mole check Quality chron ic 04/23/2012 None mole check Color brown 04/23/2012 None mole check Changing Moles changing 04/23/2012 None mole check Changing Moles becoming thicker 04/23/2012 None mole check Onset and Resolution gradual in onset 04/23/2012 None mole check Limitation on Activities does not limit activities 04/23/2012 None mole check Severity mild 04/23/2012 None mole check Prior Treatments previously untreated 04/23/2012 None mole check Triggers no k nown triggers 04/23/2012 None mole check Significant History skin cancer 04/23/2012 None mole check Alleviating Factors no alleviating factors 04/23/2012 None mole check Pertinent Findings Denies flushing 04/23/2012 None mole check Pertinent Findings itching 04/23/2012 None mole check Pertinent Findings Denies tenderness 04/23/2012 None hypertension Quality chr onic 03/25/2012 None hypertension Onset and Resolution ongoing 03/25/2012 None hypertension Onset of Symptom during adulthood 03/25/2012 None hypertension Severity no t consistently severe symptoms, the symptoms fluctuate from no symptoms to anxiety and headaches 03/25/2012 None knee pain Location in th e anterior region 03/25/2012 None knee pain Quality chronic 03/25/2012 None knee pain Limitation on Activities allows weight bearing activity 03/25/2012 None knee pain Significant Medical Conditions degenerative joint disease 03/25/2012 None knee pain Significant Medications NSAID's 03/25/2012 takes 2 tylenol once lindsay y knee pain Mechanism of injury unknown 03/25/2012 None knee pain Alleviating Factors ice compression 03/25/2012 None knee pain Alleviating Factors NSAID's 03/25/2012 None knee pain Alleviating Factors rest 03/25/2012 None knee pain Exacerbating Factors exertion 03/25/2012 None knee pain Exacerbating Factors weight bearing 03/25/2012 None knee pain Frequency of Episodes increasing 03/25/[address] ress 03/25/2012 None hypertension Alleviating Factors medication 03/25/2012 None hypertension Quality chr onic 03/12/2012 None hypertension Onset and Resolution ongoing 03/12/2012 None hypertension Onset of Symptom during adulthood 03/12/2012 None hypertension Blood Pressure Values patient checking blood pressure at home - did not bring in readings 03/12/2012 None hypertension Severity no t consistently severe symptoms, the symptoms fluctuate from no symptoms to anxiety and headaches 03/12/2012 None hypertension Frequency of Episodes unchanged 03/12/[address] ress 03/12/2012 None hypertension Alleviating Factors medication 03/12/2012 None hypertension Pertinent Findings Denies dizziness 03/12/2012 None hypertension Pertinent Findings Denies dyspnea 03/12/2012 None hypertension Pertinent Findings Denies orthostatic hypotension 03/12/2012 None hypertension Pertinent Findings Denies palpitations 03/12/2012 None hypertension Pertinent Findings Denies tachycardia 03/12/2012 None edema Quality acute 01/23/2012 None edema Onset and Resolution ongoing 01/23/2012 None hypertension Quality chr onic 01/23/2012 None hypertension Onset and Resolution ongoing 01/23/2012 None edema Limitation on Activities does not limit activities 01/23/2012 None edema Frequency of Episodes daily 01/23/2012 None edema Significant Medications diuretics 01/23/2012 None edema Triggers diet fraser ge 01/23/2012 None edema Triggers prolonged sitting 01/23/2012 None edema Alleviating Factors recumbency 01/23/2012 None edema Alleviating Factors medication 01/23/2012 None edema Exacerbating Factors salty foods 01/23/2012 None edema Location on both l egs 01/23/2012 None edema Pertinent Findings Denies back pain 01/23/2012 None edema Pertinent Findings Denies dark urine 01/23/2012 None edema Pertinent Findings Denies dyspnea 01/23/[address] ress 01/23/2012 None hypertension Quality imp roving 01/23/2012 None hypertension Onset of Symptom during adulthood 01/23/2012 None hypertension Blood Pressure Values Stage 0:SBP 130-139 mmHg / DBP 85-89 mmHg 01/23/2012 None hypertension Severity mi ld 01/23/2012 None breast complaint Location in the left nipple 01/12/2012 None breast complaint Quality skin color change 01/12/2012 None breast complaint Quality pain 01/12/2012 pt describes it as discom fort and wears a kleenex in her bra [...] worsening 12/25/2011 None blood pressure followup Blood Pressu re Values pt checking blood pressure - see scanned document 12/25/2011 None blood pressure followup Blood Pressu re Values Stage 2:SBP 160-179 mmHg / DBP [...] 12/25/2011 None blood pressure followup Onset and Re solution ongoing 12/25/2011 None blood pressure followup Frequency of Episodes unchanged 12/25/2011 Non e blood pressure followup Alleviating Factor s medication 12/04/2011 None blood pressure followup Blood Pressu re Values not checking blood pressure at home 12/04/2011 None blood pressure followup Frequency of Episodes unchanged 12/04/2011 Non e blood pressure followup Onset and Re solution ongoing 12/04/2011 None blood pressure followup Onset [...] worsening 09/20/2011 None blood pressure followup Blood Pressu re Values pt checking blood pressure - see scanned document 09/20/2011 None blood pressure followup Blood Pressu re Values Stage 2:SBP 160-179 mmHg / DBP [...] Pertinent Findings obesity 09/20/2011 None hypertension Quality chr onic 09/06/2011 None hypertension Quality wor sening 09/06/2011 None anxiety Quality chronic 09/06/2011 None dysuria Quality chronic 09/06/2011 None dysuria Onset and Resolution ongoing. 09/06/2011 Thinks it's better but wa nts to make sure her UTI is gone. hypertension Onset and Resolution ongoing 09/06/2011 None hypertension Blood Pressure Values Stage 1:SBP 140-159 mmHg / DBP 90-99 mmHg 09/06/2011 None hypertension Frequency of Episodes increasing 09/06/[address] ress 09/06/2011 None anxiety Onset and Resolution ongoing 09/06/2011 None anxiety Onset of Symptom 2 years ago 09/06/2011 but worse over the past f ew months. anxiety Limitation on Activities does not limit activities 09/06/2011 None anxiety Frequency of Episodes increasing 09/06/2011 None anxiety Triggers stress 09/06/2011 None anxiety Triggers family discord 09/06/2011 None urinary frequency Onset and Resolution ongoing 08/30/2011 on augmentin, but causing stomach upset. cont to have some back pain hypertension Quality chr onic 08/30/2011 None hypertension Onset and Resolution ongoing 08/30/2011 None hypertension Onset of Symptom during adulthood 08/30/2011 None hypertension Blood Pressure Values patient checking blood pressure at home - did not bring in readings 08/30/2011 None hypertension Severity mi ld 08/30/[address] ress 08/30/2011 None urinary frequency Quality acute 08/30/2011 None urinary frequency Triggers activity 08/30/2011 Pt with UTI - thinks it m ay be due to intercourse cauging passing of [...] reflux Frequency of Episodes most meals 05/04/2011 gonzales s quit eating onions, cut back on lettuce, increased vegetables while taking nexium gastroesophageal reflux Alleviating Factor s medication 05/04/2011 She doesn't have problems when she takes nexium before meals abdominal pain Location in the epigastric area 05/04/2011 None abdominal pain Radiating the back 05/04/2011 None abdominal pain Location in the RLQ 05/04/2011 None abdominal pain Quality s harp 05/04/2011 not extremely sharp, occu rred once, she has a hernia in that area nasal allergies Location in both nares 05/04/2011 None nasal allergies Severity moderate 05/04/2011 None nasal allergies Triggers exposure to grass/pollens 05/04/2011 None nasal allergies Triggers season change 05/04/2011 None sinus pain Quality press ure 05/04/2011 None sinus pain Alleviating Factors medication 05/04/2011 benadryl sinus pain Severity mode rate 05/04/2011 None gastroesophageal reflux Exacerbating Factors medication 05/04/2011 pr ilosec did not work on the GERD abdominal [...] acid 04/19/2011 None gastroesophageal reflux Onset and Re solution ongoing 04/19/2011 None gastroesophageal reflux Quality chronic 04/19/2011 None gastroesophageal reflux Severity moderate 04/19/2011 None gastroesophageal reflux Frequency of Episodes daily 04/19/2011 None gastroesophageal reflux Diet includes spicy foods 04/19/2011 None gastroesophageal reflux Diet includes caffeine 04/19/2011 None gastroesophageal reflux Diet includes chocolate 04/19/2011 None gastroesophageal reflux Triggers meals 04/19/2011 None cough Quality acute 04/19/2011 None cough Quality productive 04/19/2011 None cough Onset of Symptom 3 -4 days ago 04/19/2011 None cough Onset and Resolution gradual in onset 04/19/2011 None cough Significant Medical Conditions asthma 04/19/2011 None fever Quality acute 04/19/2011 None fever Onset of Symptom 1 days ago 04/19/2011 None wheezing Location diffus ladonna 04/19/2011 None wheezing Quality acute 04/19/2011 None wheezing Onset and Resolution worse during the day 04/19/2011 None wheezing Onset of Symptom 3-4 days ago 04/19/2011 None wheezing Severity modera te 04/19/2011 None Symptom Name Status Resu lt Effective Date Notes Location in the throat 03/11/2019 None Quality productive 03/11/2019 None Onset and Resolution s udden in onset 03/11/2019 None Onset of Symptom 1 day s ago 03/11/2019 None Pertinent Findings Den ies chest discomfort 03/11/2019 None Pertinent Findings Den ies dyspnea 03/11/2019 None Pertinent Findings Den ies fever 03/11/2019 None Pertinent Findings ihsan rseness 03/11/2019 None Location lumbar-sacral spine 03/11/2019 None Quality intermittent 03/11/2019 None Onset of Symptom _ yea rs ago 03/11/2019 None Pertinent Findings ext remity weakness 03/11/2019 None Onset and Resolution o ngoing 03/11/2019 None Onset of Symptom _ mon ths ago 03/11/2019 None Frequency of Episodes daily 03/11/2019 None Pertinent Findings chel k pain 03/11/2019 None Quality chronic 09/03/2018 None Quality primary hypert ension 09/03/2018 None Onset and Resolution o ngoing 09/03/2018 None Onset of Symptom durin g adulthood 09/03/2018 None Blood Pressure Values not checking blood pressure at home 09/03/2018 None Alleviating Factors me dication 09/03/2018 None Pertinent Findings dec reased energy 09/03/2018 None Pertinent Findings diz ziness 09/03/2018 at times when she first g ets up in the mornings Pertinent Findings dys pnea 09/03/2018 occasionally- wears oxyge n at night Pertinent Findings maria de jesus ma 09/03/2018 -wears bilateral hose Onset and Resolution g radual in onset 09/03/2018 None Exacerbating Factors d iet 09/03/2018 None Location on both sides 09/03/2018 None Quality intermittent 09/03/2018 None Quality aching 09/03/[address] Factors re st 09/03/2018 None Exacerbating Factors s tanding or walking 09/03/2018 None hypertension Quality shira tania hypertension 05/29/2018 None hypertension Onset and Resolution ongoing 05/29/2018 None hypertension Onset of Symptom during adulthood 05/29/2018 None hypertension Blood Pressure Values not checking blood pressure at home 05/29/2018 None hypertension Alleviating Factors medication 05/29/2018 None hypertension Pertinent Findings decreased energy 05/29/2018 None hypertension Pertinent Findings dizziness 05/29/2018 at times when she first g ets up in the mornings hypertension Pertinent Findings dyspnea 05/29/2018 occasionally- wears oxyge n at night hypertension Pertinent Findings edema 05/29/2018 -wears bilateral hose 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 05/29/2018 None hypothyroid Onset and Resolution ongoing 05/29/2018 None hypothyroid Alleviating Factors medication 05/29/2018 None hypertension Quality chr onic 05/29/2018 None hyperlipidemia Onset and Resolution gradual in onset 05/29/2018 None hyperlipidemia Onset of Symptom during adulthood 05/29/2018 None hyperlipidemia Alleviating Factors medication 05/29/2018 None hyperlipidemia Exacerbating Factors diet 05/29/2018 None low back pain Location o n both sides 05/29/2018 None low back pain Quality ac ministerio 05/29/2018 None low back pain Onset and Resolution ongoing 05/29/2018 None low back pain Exacerbating Factors standing or walking 05/29/2018 None low back pain Quality in termittent 05/29/2018 None low back pain Alleviating Factors [...] Annual Medicare Wellness Exam Blood Pressure (self reported) diagnosed with hypertension 04/25/20 18 None Annual Medicare Wellness Exam Choles terol (self reported) diagnosed with elevated cholesterol 04/25/2018 None Annual Medicare Wellness Exam Hemagl obin A-1C (self reported) don't know 04/25/2018 No ne Annual Medicare Wellness Exam Hemagl obin A-1C (self reported) never checked 04/25/2018 None Annual Medicare Wellness Exam Hours of Sleep 5-6 04/25/2018 None Annual Medicare Wellness Exam Intera ction with Friends no 04/25/2018 None Annual Medicare Wellness Exam Exerci se Habits exercises 5 days per week 04/25/2018 None Annual Medicare Wellness Exam Exerci se Habits exercises 15 minutes per day 04/25/2018 None Annual Medicare Wellness Exam Descri be Your Health fair 04/25/2018 None Annual Medicare Wellness Exam Depres omar (last 6 months) some of the time 04/25/2018 None Annual Medicare Wellness Exam Depres omar or Hopelessness some of the time 04/25/2018 None Annual Medicare Wellness Exam Intere sts & Pleasure almost never 04/25/2018 None Annual Medicare Wellness Exam Stress almost never 04/25/2018 None Annual Medicare Wellness Exam Handli ng Stress usually sheldon effectively 04/25/2018 None Annual Medicare Wellness Exam Life S atisfaction satisfied 04/25/2018 Non e Annual Medicare Wellness Exam Social & Emotional Support always 04/25/2018 None Annual Medicare Wellness Exam Smokin g and Tobacco Use non smoker 04/25/2018 No ne Annual Medicare Wellness Exam Sun Exposure protects skin when outdoors: yes 04/25/2018 None Annual Medicare Wellness Exam Motor Vehicle Safety always fastens seat belt: yes 2017 None Annual Medicare Wellness Exam Motor Vehicle Safety drives after drinking: no 04/25/2018 None Annual Medicare Wellness Exam Motor Vehicle Safety rides with someone who has been drinking: no 04/25/2018 None Annual Medicare Wellness Exam Nutrition servings of fried food / high fat foods per day: 0-1 04/25/2018 None Annual Medicare Wellness Exam Nutrition [...] Exacerbating Factors Q-tips 02/06/2018 None hypertension Quality shira marin hypertension 01/23/2018 None hypertension Onset and Resolution ongoing 01/23/2018 None hypertension Onset of Symptom during adulthood 01/23/2018 None hypertension Blood Pressure Values not checking blood pressure at home 01/23/2018 None hypertension Alleviating Factors medication 01/23/2018 None hypertension Pertinent Findings dizziness 01/23/2018 at times when she first g ets up in the mornings hypertension Pertinent Findings dyspnea 01/23/2018 occasionally- wears oxyge n at night hypertension Pertinent Findings edema 01/23/2018 None hypothyroid Onset and Resolution ongoing 01/23/2018 None hypothyroid Alleviating Factors medication 01/23/2018 None 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 None hypertension Pertinent Findings decreased energy 01/23/2018 None cough Quality acute 09/26/2017 None cough Quality intermitte nt 09/26/2017 None cough Quality productive 09/26/2017 None cough Onset and Resolution sudden in onset 09/26/2017 None cough Onset and Resolution ongoing 09/26/2017 None cough Pertinent Findings chills 09/26/2017 -states that she always f eels cold cough Quality improving 09/26/2017 None cough Onset of Symptom 1 .5 months ago 09/26/2017 None cough Frequency of Episodes decreasing 09/26/2017 None hypertension Quality shira marin hypertension 09/12/2017 None hypertension Onset and Resolution ongoing 09/12/2017 None hypertension Onset of Symptom during adulthood 09/12/2017 None hypertension Alleviating Factors medication 09/12/2017 None hypertension Pertinent Findings dizziness 09/12/2017 when she first gets up in the mornings hypertension Pertinent Findings dyspnea 09/12/2017 occasionally- wears oxyge n at night hypertension Pertinent Findings edema 09/12/2017 None hypothyroid Onset and Resolution ongoing 09/12/2017 None hypothyroid Alleviating Factors medication 09/12/2017 None cough Quality acute 09/12/2017 None cough Quality intermitte nt 09/12/2017 None cough Onset and Resolution sudden in onset 09/12/2017 None cough Onset and Resolution ongoing 09/12/2017 None cough Onset of Symptom 1 + months ago 09/12/2017 None cough Pertinent Findings facial pain 09/12/2017 None cough Pertinent Findings chills 09/12/2017 -states that she always f eels cold cough Quality productive 09/12/2017 None cough Pertinent Findings sputum production 09/12/2017 (yellow) cough Pertinent Findings post nasal drip 09/12/2017 (clear) hypertension Blood Pressure Values not checking blood pressure at home 09/12/2017 None cough Quality acute 08/31/2017 None cough Quality intermitte nt 08/31/2017 None cough Onset and Resolution sudden [...] Findings hoarseness 08/09/2017 None cough Quality acute 08/09/2017 None cough Quality intermitte nt 08/09/2017 None cough Onset and Resolution sudden [...] known associated factors 08/09/2017 None hypertension Quality int ermittent 05/07/2017 None hypertension Quality shira tania hypertension 05/07/2017 None hypertension Onset and Resolution ongoing 05/07/2017 None hypertension Onset of Symptom during adulthood 05/07/2017 None hypertension Alleviating Factors medication 05/07/2017 None hypertension Pertinent Findings dizziness 05/07/2017 occasioinally- in the mor nings when she first wakes up hypertension Pertinent Findings dyspnea 05/07/2017 occasionally- wears oxyge n at night hypertension Pertinent Findings edema 05/07/2017 None hypothyroid Onset and Resolution ongoing 05/07/2017 None hypothyroid Alleviating Factors medication 05/07/2017 None knee pain Location on th e left 05/07/2017 None knee pain Quality interm ittent 05/07/2017 None knee pain Onset and Resolution [...] Blood Glucose (self reported) don't know 04/12/2017 No ne Annual Medicare Wellness Exam Blood Pressure (self reported) low / normal (120/80) 04/12/2017 None Annual Medicare Wellness Exam Choles terol (self reported) desireable (below 200) 04/12/2017 None Annual Medicare Wellness Exam Depres omar (last 6 months) some of the time 04/12/2017 None Annual Medicare Wellness Exam Depres omar or Hopelessness almost never 04/12/2017 None Annual Medicare Wellness Exam Descri be Your Health good 04/12/2017 None Annual Medicare Wellness Exam Exerci se Habits exercises 3 days per week 04/12/2017 None Annual Medicare Wellness Exam Exerci se Habits exercises 30 minutes per day 04/12/2017 None Annual Medicare Wellness Exam Corina salazar Stress usually sheldon effectively 04/12/2017 None Annual Medicare Wellness Exam Hemagl obin A-1C (self reported) don't know 04/12/2017 No ne Annual Medicare Wellness Exam Hours of Sleep 6 04/12/2017 None Annual Medicare Wellness Exam Intera ction with Friends yes 04/12/2017 None Annual Medicare Wellness Exam Intere sts & Pleasure some of the time 04/12/2017 None Annual Medicare Wellness Exam Life S atisfaction satisfied 04/12/2017 Non e Annual Medicare Wellness Exam Motor Vehicle Safety always fastens seat belt: y 04/12/20 17 None Annual Medicare Wellness Exam Motor Vehicle Safety drives after drinking: nn 04/12/2017 None Annual Medicare Wellness Exam Motor Vehicle Safety rides with someone who has been drinking: n 04/12/2017 None Annual Medicare Wellness Exam Nutrition servings of fried food / high fat foods per day: 0 04/12/2017 None Annual Medicare Wellness Exam Nutrition servings of high fiber / whole grain per day: 1 04/12/2017 None Annual Medicare Wellness Exam Nutrition servings of vegetables / fruit per day: 2 04/12/2017 None Annual Medicare Wellness Exam Smokin g and Tobacco Use non smoker 04/12/2017 No ne Annual Medicare Wellness Exam Social & Emotional Support always 04/12/2017 None Annual Medicare Wellness Exam Stress most of the time 04/12/2017 None Annual Medicare Wellness Exam Sun Exposure protects skin when outdoors: y 04/12/2017 None cough Location in the naresh ng 02/05/2017 None cough Location in the th roat 02/05/2017 None cough Quality acute 02/05/2017 None cough Onset and Resolution ongoing 02/05/2017 None cough Onset of Symptom 2 weeks ago 02/05/2017 None cough Limitation on Activities does not limit activities 02/05/2017 None cough Frequency of Episodes unchanged 02/05/2017 None cough Triggers known all ergens 02/05/2017 None cough Pertinent Findings Denies chest discomfort 02/05/2017 None cough Pertinent Findings Denies dyspnea 02/05/2017 None cough Pertinent Findings Denies fever 02/05/2017 None cough Pertinent Findings nasal congestion 02/05/2017 None cough Location in the naresh ng 02/02/2017 None cough Location in the th roat 02/02/2017 None cough Quality acute 02/02/2017 None cough Onset and Resolution ongoing 02/02/2017 None cough Onset of Symptom 2 weeks ago 02/02/2017 None cough Limitation on Activities does not limit activities 02/02/2017 None cough Frequency of Episodes unchanged 02/02/2017 None cough Triggers known all ergens 02/02/2017 None cough Pertinent Findings Denies chest [...] urgency 02/02/2017 None cough Location in the th roat 01/15/2017 None cough Location in the naresh ng 01/15/2017 None cough Quality acute 01/15/2017 None cough Onset and Resolution ongoing 01/15/2017 None cough Onset of Symptom 2 weeks ago 01/15/2017 None cough Limitation on Activities does not limit activities 01/15/2017 None cough Frequency of Episodes unchanged 01/15/2017 None cough Triggers known all ergens 01/15/2017 None cough Pertinent Findings Denies chest discomfort 01/15/2017 None cough Pertinent Findings Denies dyspnea 01/15/2017 None cough Pertinent Findings Denies fever 01/15/2017 None cough Pertinent Findings nasal congestion 01/15/2017 None hypertension Quality int ermittent 01/04/2017 None hypertension Onset and Resolution ongoing 01/04/2017 None hypertension Blood Pressure Values patient checking blood pressure at home - did not bring in readings 01/04/2017 None hypertension Alleviating Factors medication 01/04/2017 None hypertension Pertinent Findings dizziness 01/04/2017 occasioinally- in the mor nings when she first wakes up hypertension Pertinent Findings dyspnea 01/04/2017 occasionally- wears oxyge n at night hypertension Pertinent Findings edema 01/04/2017 wears bilateral knee high madi hose hypothyroid Onset and Resolution ongoing 01/04/2017 None hypothyroid Alleviating Factors medication 01/04/2017 None knee pain Location on th e left 01/04/2017 None knee pain Quality worsen ing 01/04/2017 None knee pain Onset and Resolution gradual in onset 01/04/2017 None knee pain Quality interm ittent 01/04/2017 None knee pain Frequency of Episodes [...] pain with movement 01/04/2017 None hypertension Quality shira tania hypertension 01/04/2017 None hypertension Onset of Symptom during adulthood 01/04/2017 None hypertension Quality int ermittent 09/07/2016 None hypertension Onset and Resolution ongoing 09/07/2016 None hypertension Blood Pressure Values patient checking blood pressure at home - did not bring in readings 09/07/2016 pt reports that occasionally her lbood p ressure will be in the 180's/90's - hypertension Pertinent Findings dizziness 09/07/2016 occasioinally hypertension Pertinent Findings edema 09/07/2016 wears bilateral knee high madi hose hypertension Alleviating Factors medication 09/07/2016 None hypothyroid Onset and Resolution ongoing 09/07/2016 None hypothyroid Alleviating Factors medication 09/07/2016 None hypertension Pertinent Findings dyspnea 09/07/2016 occasionally- wears oxyge n at night gait abnormality Quality unsteady 09/07/2016 None gait abnormality Onset and Resolution ongoing 09/07/2016 None hypertension Quality int ermittent 07/06/2016 None hypertension Onset and Resolution ongoing 07/06/2016 None hypertension Blood Pressure Values patient checking blood pressure at home - did not bring in readings 07/06/2016 None hypertension Pertinent Findings Denies dizziness 07/06/2016 None hypertension Pertinent Findings edema 07/06/2016 None hypertension Quality chr onic 06/08/2016 None hypertension Onset and Resolution ongoing 06/08/2016 None hypertension Onset of Symptom during adulthood 06/08/2016 None hypertension Severity no t consistently severe symptoms, the symptoms fluctuate from no symptoms to anxiety and headaches 06/08/2016 None hypertension Pertinent Findings Denies dizziness 06/08/2016 None hypertension Pertinent Findings dyspnea 06/08/2016 with activity or anxiousn ess hypertension Pertinent Findings edema 06/08/2016 -wearing knee high compre ssion hose joint complaint Location on both knees [...] Alleviating Factors medication 06/08/2016 None 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 None hypothyroid Onset and Resolution ongoing 06/08/2016 None hypothyroid Onset of Symptom during adulthood 06/08/2016 None hypothyroid Alleviating Factors medication 06/08/2016 None hypertension Quality int ermittent 06/08/2016 None hypertension Blood Pressure Values pt [...] the back 06/08/2016 None abdominal pain Quality i ntermittent 06/08/2016 None abdominal pain Onset and Resolution ongoing 06/08/2016 None abdominal pain Onset of Symptom years ago 06/08/2016 None abdominal pain Timing of Episodes in the morning 06/08/2016 None abdominal pain Triggers no known associated factors 06/08/2016 None hypertension Quality int ermittent 04/17/2016 None hypertension Onset and Resolution ongoing 04/17/2016 None hypertension Blood Pressure Values patient checking blood pressure at home - did not bring in readings 04/17/2016 None hypertension Pertinent Findings Denies dizziness 04/17/2016 None hypertension Pertinent Findings edema 04/17/2016 None hypertension Quality chr onic 04/06/2016 None hypertension Onset and Resolution ongoing 04/06/2016 None hypertension Onset of Symptom during adulthood 04/06/2016 None hypertension Blood Pressure Values not checking blood pressure at home 04/06/2016 None hypertension Severity no t consistently severe symptoms, the symptoms fluctuate from [...] Alleviating Factors medication 04/06/2016 None 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 04/06/2016 None hypothyroid Onset and Resolution ongoing 04/06/2016 None hypothyroid Onset of Symptom during adulthood 04/06/2016 None hypothyroid Severity mil d with subclinical signs 04/06/2016 None hypothyroid Frequency of Episodes unchanged 04/06/2016 None hypothyroid Alleviating Factors medication 04/06/2016 None hypertension Quality chr onic 03/09/2016 None hypertension Onset and Resolution ongoing [...] Alleviating Factors medication 03/09/2016 None 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 03/09/2016 None hypothyroid Onset and Resolution ongoing 03/09/2016 None hypothyroid Onset of Symptom during adulthood 03/09/2016 None hypothyroid Severity mil d with subclinical signs 03/09/2016 None hypothyroid Frequency of Episodes unchanged 03/09/2016 None hypothyroid Alleviating Factors medication 03/09/2016 None hypertension Severity no t consistently severe symptoms, the symptoms fluctuate from no symptoms to anxiety and headaches 03/09/2016 None hypertension Frequency of Episodes unchanged 03/09/2016 None hypertension Quality chr onic 01/18/2016 None hypertension Onset and Resolution ongoing [...] Alleviating Factors medication 01/18/2016 None 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 01/18/2016 None hypothyroid Onset and Resolution ongoing 01/18/2016 None hypothyroid Onset of Symptom during adulthood 01/18/2016 None hypothyroid Severity mil d with subclinical signs 01/18/2016 None hypothyroid Frequency of Episodes unchanged 01/18/2016 None hypothyroid Alleviating Factors medication 01/18/2016 None hypertension Quality chr onic 09/09/2015 None hypertension Onset and Resolution ongoing [...] Left hurts but not constantly 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 09/09/2015 None hypothyroid Onset and Resolution ongoing 09/09/2015 None hypothyroid Onset of Symptom during adulthood 09/09/2015 None hypothyroid Severity mil d with subclinical signs 09/09/2015 None hypothyroid Frequency of Episodes unchanged 09/09/2015 None hypertension Quality chr onic 12/25/2014 None hypertension Onset and Resolution ongoing 12/25/2014 None hypertension Onset of Symptom during adulthood 12/25/2014 None hypertension Blood Pressure Values not checking blood pressure at home 12/25/2014 None hypertension Pertinent Findings Denies anxiety 12/25/2014 None hypertension Pertinent Findings edema 12/25/2014 None hypertension Pertinent Findings Denies dizziness 12/25/2014 None hypertension Pertinent Findings dyspnea 12/25/2014 with activity hypertension Quality chr onic 10/13/2014 None hypertension Onset and Resolution ongoing 10/13/2014 None hypertension Onset of Symptom during adulthood 10/13/2014 None hypertension Blood Pressure Values not checking blood pressure at home 10/13/2014 None hypertension Pertinent Findings Denies anxiety 10/13/2014 None hypertension Quality chr onic 08/28/2014 None hypertension Onset and Resolution ongoing [...] which is her heart beat arrhythmia Quality irreg ular beats 08/28/2014 None arrhythmia Onset and Resolution ongoing 08/28/2014 Says that the Toprol help ed this but made her pulse too low arrhythmia Pertinent Findings dizziness 08/28/2014 None arrhythmia Pertinent Findings dyspnea 08/28/2014 None dyspnea Onset and Resolution ongoing 05/07/2014 None dyspnea Quality chronic 05/07/2014 waking up at night, wearing oxgyen but q uestions needing an overnight oxygen study cough Location in the naresh ng 05/07/2014 None cough Quality acute 05/07/2014 None cough Onset and Resolution ongoing 05/07/2014 None cough Onset of Symptom 2 -3 days ago 05/07/2014 None cough Limitation on Activities does not limit activities 05/07/2014 None cough Frequency of Episodes increasing 05/07/2014 None cough Triggers known all ergens 05/07/2014 None cough Alleviating Factors OTC medications 05/07/2014 None cough Pertinent Findings dyspnea 05/07/2014 None cough Pertinent Findings Denies fever 05/07/2014 None cough Pertinent Findings Denies ill contacts 05/07/2014 None cough Pertinent Findings Denies tachypnea 05/07/2014 None cough Pertinent Findings sputum production 05/07/2014 None cough Significant Medical Conditions pulmonary disease 05/07/2014 None hypertension Quality chr onic 04/16/2014 None hypertension Onset and Resolution ongoing 04/16/2014 None hypertension Onset of Symptom during adulthood 04/16/2014 None hypertension Pertinent Findings Denies anxiety 04/16/2014 None hypertension Blood Pressure Values not checking blood pressure at home 04/16/2014 None skin lesion Onset and Resolution ongoing 01/27/2014 None skin lesion Onset of Symptom during adulthood 01/27/2014 None skin lesion Quality acute 01/27/2014 irritated lesion right shoulder blade an d left forearm skin lesion Severity mild 01/27/2014 None skin lesion Frequency of Episodes increasing 01/27/2014 None skin lesion Triggers no known associated factors 01/27/2014 None fatigue Quality chronic 01/21/2014 None hypertension Quality chr onic 01/21/2014 None hypertension Onset and Resolution ongoing 01/21/2014 None hypertension Blood Pressure Values pt checking blood pressure - see scanned document 01/21/2014 None fatigue Onset and Resolution ongoing 01/21/2014 states she is not sleepin g well. needs order to cont oxygen mole [...] anxiety 01/21/2014 None wrist pain Location on t he right 01/07/2014 None wrist pain Pertinent Findings pain with movement 01/07/2014 None wrist pain Pertinent Findings Denies numbness 01/07/2014 None wrist pain Pertinent Findings Denies decreased range of motion 01/07/2014 None wrist pain Pertinent Findings swelling 01/07/2014 None wrist pain Pertinent Findings Denies stiffness 01/07/2014 None wrist pain Quality chron ic 01/07/2014 None wrist pain Severity mode rate 01/07/2014 None sinus congestion Pertinent Findings cough 12/26/2013 None sinus congestion Pertinent Findings Denies decreased energy level 12/26/2013 None sinus congestion Pertinent Findings Denies fever 12/26/2013 None cough Location in the th roat 12/26/2013 None cough Pertinent Findings Denies fever 12/26/2013 None cough Pertinent Findings Denies dyspnea 12/26/2013 None sinus congestion Onset and Resolution ongoing 12/26/2013 None cough Quality acute 12/26/2013 None cough Onset and Resolution ongoing 12/26/2013 [...] nasal congestion 11/12/2013 None sore throat Location dif fusely 11/12/2013 None sore throat Quality acute 11/12/2013 None sore throat Onset and Resolution ongoing 11/12/2013 None sore throat Onset of Symptom 2 weeks ago 11/12/2013 None sore throat Limitation on Activities does not limit oral intake 11/12/2013 None sore throat Triggers all ergens 11/12/2013 None sore throat Pertinent Findings Denies [...] Findings Denies vomiting 10/09/2013 None hypertension Quality chr onic 04/03/2013 None hypertension Quality sta ble 04/03/2013 None hypertension Onset and Resolution ongoing 04/03/2013 None hypertension Pertinent Findings Denies decreased energy 04/03/2013 None hypertension Alleviating Factors medication 04/03/2013 None hypertension Exacerbating Factors stress 04/03/2013 None hypertension Blood Pressure Values patient checking blood pressure at home - did not bring in readings 04/03/2013 None hypertension Severity mi ld 04/03/2013 None hypertension Significant Family History hypertension 04/03/2013 None edema Quality chronic 01/06/2013 None edema Quality pitting 01/06/2013 None edema Onset and Resolution ongoing 01/06/2013 None edema Location on the ri ght ankle 01/06/2013 None edema Location on the le ft ankle 01/06/2013 None edema Alleviating Factors medication 01/06/2013 None edema Pertinent Findings Denies limb pain / tenderness 01/06/2013 None edema Pertinent Findings Denies limb redness 01/06/2013 None edema Pertinent Findings Denies palpitations 01/06/2013 None edema Pertinent Findings Denies tachycardia 01/06/2013 None edema Pertinent Findings Denies dyspnea 01/06/2013 None hypertension Quality imp roving 01/06/2013 None hypertension Blood Pressure Values not [...] Findings Denies lethargy 01/06/[address] ress 01/06/2013 None hypertension Alleviating Factors medication 01/06/2013 None hypertension Exacerbating Factors stress 01/06/2013 None hypertension Exacerbating Factors change in dietary habits 01/06/2013 None cough Location in the th roat 11/21/2012 None cough Quality interrupts sleep 11/21/2012 None cough Quality productive 11/21/2012 clear cough Pertinent Findings hoarseness 11/21/2012 states she was working [facility] 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 cough Triggers known all ergens 11/21/2012 None cough Significant Medical Conditions pulmonary disease 11/21/2012 None hypertension Quality chr onic 10/28/2012 None hypertension Onset and Resolution ongoing 10/28/2012 None hypertension Blood Pressure Values not checking blood pressure at home 10/28/2012 None hypertension Onset of Symptom during adulthood 10/28/2012 None hypertension Blood Pressure Values patient checking blood pressure at home - did not bring in readings 10/28/2012 None hypertension Severity mi ld 10/28/[address] ress 10/28/2012 None hypertension Alleviating Factors medication 10/28/2012 None hypertension Pertinent Findings Denies anxiety 10/28/2012 None hypertension Pertinent Findings Denies decreased energy 10/28/2012 None edema Quality chronic 10/28/2012 None edema Quality pitting 10/28/2012 None edema Onset and Resolution ongoing 10/28/2012 None edema Location on both l egs 10/28/2012 None edema Triggers prolonged sitting 10/28/2012 None edema Alleviating Factors medication 10/28/2012 None edema Alleviating Factors recumbency 10/28/2012 None edema Exacerbating Factors salty foods 10/28/2012 None edema Exacerbating Factors standing 10/28/2012 None hypertension Quality chr onic 09/30/2012 None edema Quality chronic 09/30/2012 None edema Quality pitting 09/30/2012 None edema Onset and Resolution ongoing 09/30/2012 None edema Location on both l egs 09/30/2012 None hypertension Onset and Resolution ongoing 09/30/2012 None hypertension Onset of Symptom during adulthood 09/30/2012 None hypertension Blood Pressure Values patient checking blood pressure at home - did not bring in readings 09/30/2012 None hypertension Severity mi ld 09/30/[address] ress 09/30/2012 None hypertension Alleviating Factors medication 09/30/2012 None hypertension Pertinent Findings Denies anxiety 09/30/2012 None hypertension Pertinent Findings Denies decreased energy 09/30/2012 None hypertension Quality chr onic 08/14/2012 None hypertension Onset and Resolution ongoing 08/14/2012 None cellulitis Quality impro ving 08/14/2012 None hypertension Onset of Symptom during adulthood 08/14/2012 None hypertension Blood Pressure Values patient checking blood pressure at home - did not bring in readings 08/14/2012 None hypertension Severity mi ld 08/14/2012 None hypertension Pertinent Findings Denies anxiety 08/14/2012 None hypertension Pertinent Findings Denies decreased energy 08/14/[address] ress 08/14/2012 None hypertension Alleviating Factors medication 08/14/2012 None edema Quality chronic 08/05/2012 None hypertension Blood Pressure Values not checking blood pressure at home 08/05/2012 None edema Quality chronic 07/15/2012 None edema Onset and Resolution ongoing 07/15/2012 having more in her surg k nee hypertension Quality chr onic 07/15/2012 None hypertension Onset and Resolution ongoing [...] nausea 07/15/2012 None edema Location on both l egs 07/15/2012 None edema Alleviating Factors recumbency 07/15/2012 None hypertension Onset of Symptom during adulthood 07/15/2012 None hypertension Severity mi ld 07/15/[address] ress 07/15/2012 None hypertension Alleviating Factors medication 07/15/2012 None hypertension Exacerbating Factors stress 07/15/2012 None hypertension Exacerbating Factors change in dietary habits 07/15/2012 None hypertension Pertinent Findings Denies anxiety 07/15/2012 None hypertension Pertinent Findings Denies confusion 07/15/2012 None hypertension Pertinent Findings edema 07/15/2012 None 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 05/27/2012 None skin lesion Quality pigm ented 05/27/2012 None skin lesion Onset and Resolution [...] upper arm 04/23/2012 None mole check Quality oglesby ing 04/23/2012 None mole check Quality chron ic 04/23/2012 None mole check Color brown 04/23/2012 None mole check Changing Moles changing 04/23/2012 None mole check Changing Moles becoming thicker 04/23/2012 None mole check Onset and Resolution gradual in onset 04/23/2012 None mole check Limitation on Activities does not limit activities 04/23/2012 None mole check Severity mild 04/23/2012 None mole check Prior Treatments previously untreated 04/23/2012 None mole check Triggers no k nown triggers 04/23/2012 None mole check Significant History skin cancer 04/23/2012 None mole check Alleviating Factors no alleviating factors 04/23/2012 None mole check Pertinent Findings Denies flushing 04/23/2012 None mole check Pertinent Findings itching 04/23/2012 None mole check Pertinent Findings Denies tenderness 04/23/2012 None hypertension Quality chr onic 03/25/2012 None hypertension Onset and Resolution ongoing 03/25/2012 None hypertension Onset of Symptom during adulthood 03/25/2012 None hypertension Severity no t consistently severe symptoms, the symptoms fluctuate from no symptoms to anxiety and headaches 03/25/2012 None knee pain Location in th e anterior region 03/25/2012 None knee pain Quality chronic 03/25/2012 None knee pain Limitation on Activities allows weight bearing activity 03/25/2012 None knee pain Significant Medical Conditions degenerative joint disease 03/25/2012 None knee pain Significant Medications NSAID's 03/25/2012 takes 2 tylenol once lindsay y knee pain Mechanism of injury unknown 03/25/2012 None knee pain Alleviating Factors ice compression 03/25/2012 None knee pain Alleviating Factors NSAID's 03/25/2012 None knee pain Alleviating Factors rest 03/25/2012 None knee pain Exacerbating Factors exertion 03/25/2012 None knee pain Exacerbating Factors weight bearing 03/25/2012 None knee pain Frequency of Episodes increasing 03/25/[address] ress 03/25/2012 None hypertension Alleviating Factors medication 03/25/2012 None hypertension Quality chr onic 03/12/2012 None hypertension Onset and Resolution ongoing 03/12/2012 None hypertension Onset of Symptom during adulthood 03/12/2012 None hypertension Blood Pressure Values patient checking blood pressure at home - did not bring in readings 03/12/2012 None hypertension Severity no t consistently severe symptoms, the symptoms fluctuate from no symptoms to anxiety and headaches 03/12/2012 None hypertension Frequency of Episodes unchanged 03/12/[address] ress 03/12/2012 None hypertension Alleviating Factors medication 03/12/2012 None hypertension Pertinent Findings Denies dizziness 03/12/2012 None hypertension Pertinent Findings Denies dyspnea 03/12/2012 None hypertension Pertinent Findings Denies orthostatic hypotension 03/12/2012 None hypertension Pertinent Findings Denies palpitations 03/12/2012 None hypertension Pertinent Findings Denies tachycardia 03/12/2012 None edema Quality acute 01/23/2012 None edema Onset and Resolution ongoing 01/23/2012 None hypertension Quality chr onic 01/23/2012 None hypertension Onset and Resolution ongoing 01/23/2012 None edema Limitation on Activities does not limit activities 01/23/2012 None edema Frequency of Episodes daily 01/23/2012 None edema Significant Medications diuretics 01/23/2012 None edema Triggers diet fraser ge 01/23/2012 None edema Triggers prolonged sitting 01/23/2012 None edema Alleviating Factors recumbency 01/23/2012 None edema Alleviating Factors medication 01/23/2012 None edema Exacerbating Factors salty foods 01/23/2012 None edema Location on both l egs 01/23/2012 None edema Pertinent Findings Denies back pain 01/23/2012 None edema Pertinent Findings Denies dark urine 01/23/2012 None edema Pertinent Findings Denies dyspnea 01/23/[address] ress 01/23/2012 None hypertension Quality imp roving 01/23/2012 None hypertension Onset of Symptom during adulthood 01/23/2012 None hypertension Blood Pressure Values Stage 0:SBP 130-139 mmHg / DBP 85-89 mmHg 01/23/2012 None hypertension Severity mi ld 01/23/2012 None breast complaint Location in the left nipple 01/12/2012 None breast complaint Quality skin color change 01/12/2012 None breast complaint Quality pain 01/12/2012 pt describes it as discom fort and wears a kleenex in her bra [...] worsening 12/25/2011 None blood pressure followup Blood Pressu re Values pt checking blood pressure - see scanned document 12/25/2011 None blood pressure followup Blood Pressu re Values Stage 2:SBP 160-179 mmHg / DBP [...] 12/25/2011 None blood pressure followup Onset and Re solution ongoing 12/25/2011 None blood pressure followup Frequency of Episodes unchanged 12/25/2011 Non e blood pressure followup Alleviating Factor s medication 12/04/2011 None blood pressure followup Blood Pressu re Values not checking blood pressure at home 12/04/2011 None blood pressure followup Frequency of Episodes unchanged 12/04/2011 Non e blood pressure followup Onset and Re solution ongoing 12/04/2011 None blood pressure followup Onset [...] worsening 09/20/2011 None blood pressure followup Blood Pressu re Values pt checking blood pressure - see scanned document 09/20/2011 None blood pressure followup Blood Pressu re Values Stage 2:SBP 160-179 mmHg / DBP [...] Pertinent Findings obesity 09/20/2011 None hypertension Quality chr onic 09/06/2011 None hypertension Quality wor sening 09/06/2011 None anxiety Quality chronic 09/06/2011 None dysuria Quality chronic 09/06/2011 None dysuria Onset and Resolution ongoing. 09/06/2011 Thinks it's better but wa nts to make sure her UTI is gone. hypertension Onset and Resolution ongoing 09/06/2011 None hypertension Blood Pressure Values Stage 1:SBP 140-159 mmHg / DBP 90-99 mmHg 09/06/2011 None hypertension Frequency of Episodes increasing 09/06/[address] ress 09/06/2011 None anxiety Onset and Resolution ongoing 09/06/2011 None anxiety Onset of Symptom 2 years ago 09/06/2011 but worse over the past f ew months. anxiety Limitation on Activities does not limit activities 09/06/2011 None anxiety Frequency of Episodes increasing 09/06/2011 None anxiety Triggers stress 09/06/2011 None anxiety Triggers family discord 09/06/2011 None urinary frequency Onset and Resolution ongoing 08/30/2011 on augmentin, but causing stomach upset. cont to have some back pain hypertension Quality chr onic 08/30/2011 None hypertension Onset and Resolution ongoing 08/30/2011 None hypertension Onset of Symptom during adulthood 08/30/2011 None hypertension Blood Pressure Values patient checking blood pressure at home - did not bring in readings 08/30/2011 None hypertension Severity mi ld 08/30/[address] ress 08/30/2011 None urinary frequency Quality acute 08/30/2011 None urinary frequency Triggers activity 08/30/2011 Pt with UTI - thinks it m ay be due to intercourse cauging passing of [...] reflux Frequency of Episodes most meals 05/04/2011 gonzales s quit eating onions, cut back on lettuce, increased vegetables while taking nexium gastroesophageal reflux Alleviating Factor s medication 05/04/2011 She doesn't have problems when she takes nexium before meals abdominal pain Location in the epigastric area 05/04/2011 None abdominal pain Radiating the back 05/04/2011 None abdominal pain Location in the RLQ 05/04/2011 None abdominal pain Quality s harp 05/04/2011 not extremely sharp, occu rred once, she has a hernia in that area nasal allergies Location in both nares 05/04/2011 None nasal allergies Severity moderate 05/04/2011 None nasal allergies Triggers exposure to grass/pollens 05/04/2011 None nasal allergies Triggers season change 05/04/2011 None sinus pain Quality press ure 05/04/2011 None sinus pain Alleviating Factors medication 05/04/2011 benadryl sinus pain Severity mode rate 05/04/2011 None gastroesophageal reflux Exacerbating Factors medication 05/04/2011 pr ilosec did not work on the GERD abdominal [...] acid 04/19/2011 None gastroesophageal reflux Onset and Re solution ongoing 04/19/2011 None gastroesophageal reflux Quality chronic 04/19/2011 None gastroesophageal reflux Severity moderate 04/19/2011 None gastroesophageal reflux Frequency of Episodes daily 04/19/2011 None gastroesophageal reflux Diet includes spicy foods 04/19/2011 None gastroesophageal reflux Diet includes caffeine 04/19/2011 None gastroesophageal reflux Diet includes chocolate 04/19/2011 None gastroesophageal reflux Triggers meals 04/19/2011 None cough Quality acute 04/19/2011 None cough Quality productive 04/19/2011 None cough Onset of Symptom 3 -4 days ago 04/19/2011 None cough Onset and Resolution gradual in onset 04/19/2011 None cough Significant Medical Conditions asthma 04/19/2011 None fever Quality acute 04/19/2011 None fever Onset of Symptom 1 days ago 04/19/2011 None wheezing Location diffus ladonna 04/19/2011 None wheezing Quality acute 04/19/2011 None wheezing Onset and Resolution worse during the day 04/19/2011 None wheezing Onset of Symptom 3-4 days ago 04/19/2011 None wheezing Severity modera te 04/19/2011 None Symptom Name Status Resu lt Effective Date Notes Onset and Resolution s udden in onset 04/01/2019 None Location lumbar-sacral spine 04/01/2019 None Quality intermittent 04/01/2019 None Onset of Symptom year s ago 04/01/2019 None Pertinent Findings ext remity weakness 04/01/2019 None Quality acute 04/01/2019 None Quality improving 04/01/2019 None Frequency of Episodes decreasing 04/01/2019 None Pertinent Findings pos t nasal drip 04/01/2019 (clear)- was yellowish Pertinent Findings dys pnea 04/01/2019 "sometimes" Onset and Resolution D enies ongoing 04/01/2019 None Location in the throat 03/11/2019 None Quality productive 03/11/2019 None Onset and Resolution s udden in onset 03/11/2019 None Onset of Symptom 1 day s ago 03/11/2019 None Pertinent Findings Den ies chest discomfort 03/11/2019 None Pertinent Findings Den ies dyspnea 03/11/2019 None Pertinent Findings Den ies fever 03/11/2019 None Pertinent Findings ihsan rseness 03/11/2019 None Location lumbar-sacral spine 03/11/2019 None Quality intermittent 03/11/2019 None Onset of Symptom _ yea rs ago 03/11/2019 None Pertinent Findings ext remity weakness 03/11/2019 None Onset and Resolution o ngoing 03/11/2019 None Onset of Symptom _ mon ths ago 03/11/2019 None Frequency of Episodes daily 03/11/2019 None Pertinent Findings chel k pain 03/11/2019 None Quality chronic 09/03/2018 None Quality primary hypert ension 09/03/2018 None Onset and Resolution o ngoing 09/03/2018 None Onset of Symptom durin g adulthood 09/03/2018 None Blood Pressure Values not checking blood pressure at home 09/03/2018 None Alleviating Factors me dication 09/03/2018 None Pertinent Findings dec reased energy 09/03/2018 None Pertinent Findings diz ziness 09/03/2018 at times when she first g ets up in the mornings Pertinent Findings dys pnea 09/03/2018 occasionally- wears oxyge n at night Pertinent Findings maria de jesus ma 09/03/2018 -wears bilateral hose Onset and Resolution g radual in onset 09/03/2018 None Exacerbating Factors d iet 09/03/2018 None Location on both sides 09/03/2018 None Quality intermittent 09/03/2018 None Quality aching 09/03/[address] Factors re st 09/03/2018 None Exacerbating Factors s tanding or walking 09/03/2018 None hypertension Quality shira tania hypertension 05/29/2018 None hypertension Onset and Resolution ongoing 05/29/2018 None hypertension Onset of Symptom during adulthood 05/29/2018 None hypertension Blood Pressure Values not checking blood pressure at home 05/29/2018 None hypertension Alleviating Factors medication 05/29/2018 None hypertension Pertinent Findings decreased energy 05/29/2018 None hypertension Pertinent Findings dizziness 05/29/2018 at times when she first g ets up in the mornings hypertension Pertinent Findings dyspnea 05/29/2018 occasionally- wears oxyge n at night hypertension Pertinent Findings edema 05/29/2018 -wears bilateral hose 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 05/29/2018 None hypothyroid Onset and Resolution ongoing 05/29/2018 None hypothyroid Alleviating Factors medication 05/29/2018 None hypertension Quality chr onic 05/29/2018 None hyperlipidemia Onset and Resolution gradual in onset 05/29/2018 None hyperlipidemia Onset of Symptom during adulthood 05/29/2018 None hyperlipidemia Alleviating Factors medication 05/29/2018 None hyperlipidemia Exacerbating Factors diet 05/29/2018 None low back pain Location o n both sides 05/29/2018 None low back pain Quality ac ministerio 05/29/2018 None low back pain Onset and Resolution ongoing 05/29/2018 None low back pain Exacerbating Factors standing or walking 05/29/2018 None low back pain Quality in termittent 05/29/2018 None low back pain Alleviating Factors [...] Annual Medicare Wellness Exam Blood Pressure (self reported) diagnosed with hypertension 04/25/20 18 None Annual Medicare Wellness Exam Choles terol (self reported) diagnosed with elevated cholesterol 04/25/2018 None Annual Medicare Wellness Exam Hemagl obin A-1C (self reported) don't know 04/25/2018 No ne Annual Medicare Wellness Exam Hemagl obin A-1C (self reported) never checked 04/25/2018 None Annual Medicare Wellness Exam Hours of Sleep 5-6 04/25/2018 None Annual Medicare Wellness Exam Intera ction with Friends no 04/25/2018 None Annual Medicare Wellness Exam Exerci se Habits exercises 5 days per week 04/25/2018 None Annual Medicare Wellness Exam Exerci se Habits exercises 15 minutes per day 04/25/2018 None Annual Medicare Wellness Exam Descri be Your Health fair 04/25/2018 None Annual Medicare Wellness Exam Depres omar (last 6 months) some of the time 04/25/2018 None Annual Medicare Wellness Exam Depres omar or Hopelessness some of the time 04/25/2018 None Annual Medicare Wellness Exam Intere sts & Pleasure almost never 04/25/2018 None Annual Medicare Wellness Exam Stress almost never 04/25/2018 None Annual Medicare Wellness Exam Handli ng Stress usually sheldon effectively 04/25/2018 None Annual Medicare Wellness Exam Life S atisfaction satisfied 04/25/2018 Non e Annual Medicare Wellness Exam Social & Emotional Support always 04/25/2018 None Annual Medicare Wellness Exam Smokin g and Tobacco Use non smoker 04/25/2018 No ne Annual Medicare Wellness Exam Sun Exposure protects skin when outdoors: yes 04/25/2018 None Annual Medicare Wellness Exam Motor Vehicle Safety always fastens seat belt: yes 2017 None Annual Medicare Wellness Exam Motor Vehicle Safety drives after drinking: no 04/25/2018 None Annual Medicare Wellness Exam Motor Vehicle Safety rides with someone who has been drinking: no 04/25/2018 None Annual Medicare Wellness Exam Nutrition servings of fried food / high fat foods per day: 0-1 04/25/2018 None Annual Medicare Wellness Exam Nutrition [...] Exacerbating Factors Q-tips 02/06/2018 None hypertension Quality shira tania hypertension 01/23/2018 None hypertension Onset and Resolution ongoing 01/23/2018 None hypertension Onset of Symptom during adulthood 01/23/2018 None hypertension Blood Pressure Values not checking blood pressure at home 01/23/2018 None hypertension Alleviating Factors medication 01/23/2018 None hypertension Pertinent Findings dizziness 01/23/2018 at times when she first g ets up in the mornings hypertension Pertinent Findings dyspnea 01/23/2018 occasionally- wears oxyge n at night hypertension Pertinent Findings edema 01/23/2018 None hypothyroid Onset and Resolution ongoing 01/23/2018 None hypothyroid Alleviating Factors medication 01/23/2018 None 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 None hypertension Pertinent Findings decreased energy 01/23/2018 None cough Quality acute 09/26/2017 None cough Quality intermitte nt 09/26/2017 None cough Quality productive 09/26/2017 None cough Onset and Resolution sudden in onset 09/26/2017 None cough Onset and Resolution ongoing 09/26/2017 None cough Pertinent Findings chills 09/26/2017 -states that she always f eels cold cough Quality improving 09/26/2017 None cough Onset of Symptom 1 .5 months ago 09/26/2017 None cough Frequency of Episodes decreasing 09/26/2017 None hypertension Quality shira tania hypertension 09/12/2017 None hypertension Onset and Resolution ongoing 09/12/2017 None hypertension Onset of Symptom during adulthood 09/12/2017 None hypertension Alleviating Factors medication 09/12/2017 None hypertension Pertinent Findings dizziness 09/12/2017 when she first gets up in the mornings hypertension Pertinent Findings dyspnea 09/12/2017 occasionally- wears oxyge n at night hypertension Pertinent Findings edema 09/12/2017 None hypothyroid Onset and Resolution ongoing 09/12/2017 None hypothyroid Alleviating Factors medication 09/12/2017 None cough Quality acute 09/12/2017 None cough Quality intermitte nt 09/12/2017 None cough Onset and Resolution sudden in onset 09/12/2017 None cough Onset and Resolution ongoing 09/12/2017 None cough Onset of Symptom 1 + months ago 09/12/2017 None cough Pertinent Findings facial pain 09/12/2017 None cough Pertinent Findings chills 09/12/2017 -states that she always f eels cold cough Quality productive 09/12/2017 None cough Pertinent Findings sputum production 09/12/2017 (yellow) cough Pertinent Findings post nasal drip 09/12/2017 (clear) hypertension Blood Pressure Values not checking blood pressure at home 09/12/2017 None cough Quality acute 08/31/2017 None cough Quality intermitte nt 08/31/2017 None cough Onset and Resolution sudden [...] Findings hoarseness 08/09/2017 None cough Quality acute 08/09/2017 None cough Quality intermitte nt 08/09/2017 None cough Onset and Resolution sudden [...] known associated factors 08/09/2017 None hypertension Quality int ermittent 05/07/2017 None hypertension Quality shira tania hypertension 05/07/2017 None hypertension Onset and Resolution ongoing 05/07/2017 None hypertension Onset of Symptom during adulthood 05/07/2017 None hypertension Alleviating Factors medication 05/07/2017 None hypertension Pertinent Findings dizziness 05/07/2017 occasioinally- in the mor nings when she first wakes up hypertension Pertinent Findings dyspnea 05/07/2017 occasionally- wears oxyge n at night hypertension Pertinent Findings edema 05/07/2017 None hypothyroid Onset and Resolution ongoing 05/07/2017 None hypothyroid Alleviating Factors medication 05/07/2017 None knee pain Location on th e left 05/07/2017 None knee pain Quality interm ittent 05/07/2017 None knee pain Onset and Resolution [...] Blood Glucose (self reported) don't know 04/12/2017 No ne Annual Medicare Wellness Exam Blood Pressure (self reported) low / normal (120/80) 04/12/2017 None Annual Medicare Wellness Exam Choles terol (self reported) desireable (below 200) 04/12/2017 None Annual Medicare Wellness Exam Depres omar (last 6 months) some of the time 04/12/2017 None Annual Medicare Wellness Exam Depres omar or Hopelessness almost never 04/12/2017 None Annual Medicare Wellness Exam Descri be Your Health good 04/12/2017 None Annual Medicare Wellness Exam Exerci se Habits exercises 3 days per week 04/12/2017 None Annual Medicare Wellness Exam Exerci se Habits exercises 30 minutes per day 04/12/2017 None Annual Medicare Wellness Exam Handli ng Stress usually sheldon effectively 04/12/2017 None Annual Medicare Wellness Exam Hemagl obin A-1C (self reported) don't know 04/12/2017 No ne Annual Medicare Wellness Exam Hours of Sleep 6 04/12/2017 None Annual Medicare Wellness Exam Intera ction with Friends yes 04/12/2017 None Annual Medicare Wellness Exam Intere sts & Pleasure some of the time 04/12/2017 None Annual Medicare Wellness Exam Life S atisfaction satisfied 04/12/2017 Non e Annual Medicare Wellness Exam Motor Vehicle Safety always fastens seat belt: y 04/12/20 17 None Annual Medicare Wellness Exam Motor Vehicle Safety drives after drinking: nn 04/12/2017 None Annual Medicare Wellness Exam Motor Vehicle Safety rides with someone who has been drinking: n 04/12/2017 None Annual Medicare Wellness Exam Nutrition servings of fried food / high fat foods per day: 0 04/12/2017 None Annual Medicare Wellness Exam Nutrition servings of high fiber / whole grain per day: 1 04/12/2017 None Annual Medicare Wellness Exam Nutrition servings of vegetables / fruit per day: 2 04/12/2017 None Annual Medicare Wellness Exam Smokin g and Tobacco Use non smoker 04/12/2017 No ne Annual Medicare Wellness Exam Social & Emotional Support always 04/12/2017 None Annual Medicare Wellness Exam Stress most of the time 04/12/2017 None Annual Medicare Wellness Exam Sun Exposure protects skin when outdoors: y 04/12/2017 None cough Location in the naresh ng 02/05/2017 None cough Location in the roat 02/05/2017 None cough Quality acute 02/05/2017 None cough Onset and Resolution ongoing 02/05/2017 None cough Onset of Symptom 2 weeks ago 02/05/2017 None cough Limitation on Activities does not limit activities 02/05/2017 None cough Frequency of Episodes unchanged 02/05/2017 None cough Triggers known all ergens 02/05/2017 None cough Pertinent Findings Denies chest discomfort 02/05/2017 None cough Pertinent Findings Denies dyspnea 02/05/2017 None cough Pertinent Findings Denies fever 02/05/2017 None cough Pertinent Findings nasal congestion 02/05/2017 None cough Location in the naresh ng 02/02/2017 None cough Location in the roat 02/02/2017 None cough Quality acute 02/02/2017 None cough Onset and Resolution ongoing 02/02/2017 None cough Onset of Symptom 2 weeks ago 02/02/2017 None cough Limitation on Activities does not limit activities 02/02/2017 None cough Frequency of Episodes unchanged 02/02/2017 None cough Triggers known all ergens 02/02/2017 None cough Pertinent Findings Denies chest [...] urgency 02/02/2017 None cough Location in the th roat 01/15/2017 None cough Location in the naresh ng 01/15/2017 None cough Quality acute 01/15/2017 None cough Onset and Resolution ongoing 01/15/2017 None cough Onset of Symptom 2 weeks ago 01/15/2017 None cough Limitation on Activities does not limit activities 01/15/2017 None cough Frequency of Episodes unchanged 01/15/2017 None cough Triggers known all ergens 01/15/2017 None cough Pertinent Findings Denies chest discomfort 01/15/2017 None cough Pertinent Findings Denies dyspnea 01/15/2017 None cough Pertinent Findings Denies fever 01/15/2017 None cough Pertinent Findings nasal congestion 01/15/2017 None hypertension Quality int ermittent 01/04/2017 None hypertension Onset and Resolution ongoing 01/04/2017 None hypertension Blood Pressure Values patient checking blood pressure at home - did not bring in readings 01/04/2017 None hypertension Alleviating Factors medication 01/04/2017 None hypertension Pertinent Findings dizziness 01/04/2017 occasioinally- in the mor nings when she first wakes up hypertension Pertinent Findings dyspnea 01/04/2017 occasionally- wears oxyge n at night hypertension Pertinent Findings edema 01/04/2017 wears bilateral knee high madi hose hypothyroid Onset and Resolution ongoing 01/04/2017 None hypothyroid Alleviating Factors medication 01/04/2017 None knee pain Location on th e left 01/04/2017 None knee pain Quality worsen ing 01/04/2017 None knee pain Onset and Resolution gradual in onset 01/04/2017 None knee pain Quality interm ittent 01/04/2017 None knee pain Frequency of Episodes [...] pain with movement 01/04/2017 None hypertension Quality shira tania hypertension 01/04/2017 None hypertension Onset of Symptom during adulthood 01/04/2017 None hypertension Quality int ermittent 09/07/2016 None hypertension Onset and Resolution ongoing 09/07/2016 None hypertension Blood Pressure Values patient checking blood pressure at home - did not bring in readings 09/07/2016 pt reports that occasionally her lbood p ressure will be in the 180's/90's - hypertension Pertinent Findings dizziness 09/07/2016 occasioinally hypertension Pertinent Findings edema 09/07/2016 wears bilateral knee high madi hose hypertension Alleviating Factors medication 09/07/2016 None hypothyroid Onset and Resolution ongoing 09/07/2016 None hypothyroid Alleviating Factors medication 09/07/2016 None hypertension Pertinent Findings dyspnea 09/07/2016 occasionally- wears oxyge n at night gait abnormality Quality unsteady 09/07/2016 None gait abnormality Onset and Resolution ongoing 09/07/2016 None hypertension Quality int ermittent 07/06/2016 None hypertension Onset and Resolution ongoing 07/06/2016 None hypertension Blood Pressure Values patient checking blood pressure at home - did not bring in readings 07/06/2016 None hypertension Pertinent Findings Denies dizziness 07/06/2016 None hypertension Pertinent Findings edema 07/06/2016 None hypertension Quality chr onic 06/08/2016 None hypertension Onset and Resolution ongoing 06/08/2016 None hypertension Onset of Symptom during adulthood 06/08/2016 None hypertension Severity no t consistently severe symptoms, the symptoms fluctuate from no symptoms to anxiety and headaches 06/08/2016 None hypertension Pertinent Findings Denies dizziness 06/08/2016 None hypertension Pertinent Findings dyspnea 06/08/2016 with activity or anxiousn ess hypertension Pertinent Findings edema 06/08/2016 -wearing knee high compre ssion hose joint complaint Location on both knees [...] Alleviating Factors medication 06/08/2016 None 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 None hypothyroid Onset and Resolution ongoing 06/08/2016 None hypothyroid Onset of Symptom during adulthood 06/08/2016 None hypothyroid Alleviating Factors medication 06/08/2016 None hypertension Quality int ermittent 06/08/2016 None hypertension Blood Pressure Values pt [...] the back 06/08/2016 None abdominal pain Quality i ntermittent 06/08/2016 None abdominal pain Onset and Resolution ongoing 06/08/2016 None abdominal pain Onset of Symptom years ago 06/08/2016 None abdominal pain Timing of Episodes in the morning 06/08/2016 None abdominal pain Triggers no known associated factors 06/08/2016 None hypertension Quality int ermittent 04/17/2016 None hypertension Onset and Resolution ongoing 04/17/2016 None hypertension Blood Pressure Values patient checking blood pressure at home - did not bring in readings 04/17/2016 None hypertension Pertinent Findings Denies dizziness 04/17/2016 None hypertension Pertinent Findings edema 04/17/2016 None hypertension Quality chr onic 04/06/2016 None hypertension Onset and Resolution ongoing 04/06/2016 None hypertension Onset of Symptom during adulthood 04/06/2016 None hypertension Blood Pressure Values not checking blood pressure at home 04/06/2016 None hypertension Severity no t consistently severe symptoms, the symptoms fluctuate from [...] Alleviating Factors medication 04/06/2016 None 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 04/06/2016 None hypothyroid Onset and Resolution ongoing 04/06/2016 None hypothyroid Onset of Symptom during adulthood 04/06/2016 None hypothyroid Severity mil d with subclinical signs 04/06/2016 None hypothyroid Frequency of Episodes unchanged 04/06/2016 None hypothyroid Alleviating Factors medication 04/06/2016 None hypertension Quality chr onic 03/09/2016 None hypertension Onset and Resolution ongoing [...] Alleviating Factors medication 03/09/2016 None 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 03/09/2016 None hypothyroid Onset and Resolution ongoing 03/09/2016 None hypothyroid Onset of Symptom during adulthood 03/09/2016 None hypothyroid Severity mil d with subclinical signs 03/09/2016 None hypothyroid Frequency of Episodes unchanged 03/09/2016 None hypothyroid Alleviating Factors medication 03/09/2016 None hypertension Severity no t consistently severe symptoms, the symptoms fluctuate from no symptoms to anxiety and headaches 03/09/2016 None hypertension Frequency of Episodes unchanged 03/09/2016 None hypertension Quality chr onic 01/18/2016 None hypertension Onset and Resolution ongoing [...] Alleviating Factors medication 01/18/2016 None 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 01/18/2016 None hypothyroid Onset and Resolution ongoing 01/18/2016 None hypothyroid Onset of Symptom during adulthood 01/18/2016 None hypothyroid Severity mil d with subclinical signs 01/18/2016 None hypothyroid Frequency of Episodes unchanged 01/18/2016 None hypothyroid Alleviating Factors medication 01/18/2016 None hypertension Quality chr onic 09/09/2015 None hypertension Onset and Resolution ongoing [...] Left hurts but not constantly 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 09/09/2015 None hypothyroid Onset and Resolution ongoing 09/09/2015 None hypothyroid Onset of Symptom during adulthood 09/09/2015 None hypothyroid Severity mil d with subclinical signs 09/09/2015 None hypothyroid Frequency of Episodes unchanged 09/09/2015 None hypertension Quality chr onic 12/25/2014 None hypertension Onset and Resolution ongoing 12/25/2014 None hypertension Onset of Symptom during adulthood 12/25/2014 None hypertension Blood Pressure Values not checking blood pressure at home 12/25/2014 None hypertension Pertinent Findings Denies anxiety 12/25/2014 None hypertension Pertinent Findings edema 12/25/2014 None hypertension Pertinent Findings Denies dizziness 12/25/2014 None hypertension Pertinent Findings dyspnea 12/25/2014 with activity hypertension Quality chr onic 10/13/2014 None hypertension Onset and Resolution ongoing 10/13/2014 None hypertension Onset of Symptom during adulthood 10/13/2014 None hypertension Blood Pressure Values not checking blood pressure at home 10/13/2014 None hypertension Pertinent Findings Denies anxiety 10/13/2014 None hypertension Quality chr onic 08/28/2014 None hypertension Onset and Resolution ongoing [...] which is her heart beat arrhythmia Quality irreg ular beats 08/28/2014 None arrhythmia Onset and Resolution ongoing 08/28/2014 Says that the Toprol help ed this but made her pulse too low arrhythmia Pertinent Findings dizziness 08/28/2014 None arrhythmia Pertinent Findings dyspnea 08/28/2014 None dyspnea Onset and Resolution ongoing 05/07/2014 None dyspnea Quality chronic 05/07/2014 waking up at night, wearing oxgyen but q uestions needing an overnight oxygen study cough Location in the naresh ng 05/07/2014 None cough Quality acute 05/07/2014 None cough Onset and Resolution ongoing 05/07/2014 None cough Onset of Symptom 2 -3 days ago 05/07/2014 None cough Limitation on Activities does not limit activities 05/07/2014 None cough Frequency of Episodes increasing 05/07/2014 None cough Triggers known all ergens 05/07/2014 None cough Alleviating Factors OTC medications 05/07/2014 None cough Pertinent Findings dyspnea 05/07/2014 None cough Pertinent Findings Denies fever 05/07/2014 None cough Pertinent Findings Denies ill contacts 05/07/2014 None cough Pertinent Findings Denies tachypnea 05/07/2014 None cough Pertinent Findings sputum production 05/07/2014 None cough Significant Medical Conditions pulmonary disease 05/07/2014 None hypertension Quality chr onic 04/16/2014 None hypertension Onset and Resolution ongoing 04/16/2014 None hypertension Onset of Symptom during adulthood 04/16/2014 None hypertension Pertinent Findings Denies anxiety 04/16/2014 None hypertension Blood Pressure Values not checking blood pressure at home 04/16/2014 None skin lesion Onset and Resolution ongoing 01/27/2014 None skin lesion Onset of Symptom during adulthood 01/27/2014 None skin lesion Quality acute 01/27/2014 irritated lesion right shoulder blade an d left forearm skin lesion Severity mild 01/27/2014 None skin lesion Frequency of Episodes increasing 01/27/2014 None skin lesion Triggers no known associated factors 01/27/2014 None fatigue Quality chronic 01/21/2014 None hypertension Quality chr onic 01/21/2014 None hypertension Onset and Resolution ongoing 01/21/2014 None hypertension Blood Pressure Values pt checking blood pressure - see scanned document 01/21/2014 None fatigue Onset and Resolution ongoing 01/21/2014 states she is not sleepin g well. needs order to cont oxygen mole [...] anxiety 01/21/2014 None wrist pain Location on t he right 01/07/2014 None wrist pain Pertinent Findings pain with movement 01/07/2014 None wrist pain Pertinent Findings Denies numbness 01/07/2014 None wrist pain Pertinent Findings Denies decreased range of motion 01/07/2014 None wrist pain Pertinent Findings swelling 01/07/2014 None wrist pain Pertinent Findings Denies stiffness 01/07/2014 None wrist pain Quality chron ic 01/07/2014 None wrist pain Severity mode rate 01/07/2014 None sinus congestion Pertinent Findings cough 12/26/2013 None sinus congestion Pertinent Findings Denies decreased energy level 12/26/2013 None sinus congestion Pertinent Findings Denies fever 12/26/2013 None cough Location in the th roat 12/26/2013 None cough Pertinent Findings Denies fever 12/26/2013 None cough Pertinent Findings Denies dyspnea 12/26/2013 None sinus congestion Onset and Resolution ongoing 12/26/2013 None cough Quality acute 12/26/2013 None cough Onset and Resolution ongoing 12/26/2013 [...] nasal congestion 11/12/2013 None sore throat Location dif fusely 11/12/2013 None sore throat Quality acute 11/12/2013 None sore throat Onset and Resolution ongoing 11/12/2013 None sore throat Onset of Symptom 2 weeks ago 11/12/2013 None sore throat Limitation on Activities does not limit oral intake 11/12/2013 None sore throat Triggers all ergens 11/12/2013 None sore throat Pertinent Findings Denies [...] Findings Denies vomiting 10/09/2013 None hypertension Quality chr onic 04/03/2013 None hypertension Quality sta ble 04/03/2013 None hypertension Onset and Resolution ongoing 04/03/2013 None hypertension Pertinent Findings Denies decreased energy 04/03/2013 None hypertension Alleviating Factors medication 04/03/2013 None hypertension Exacerbating Factors stress 04/03/2013 None hypertension Blood Pressure Values patient checking blood pressure at home - did not bring in readings 04/03/2013 None hypertension Severity mi ld 04/03/2013 None hypertension Significant Family History hypertension 04/03/2013 None edema Quality chronic 01/06/2013 None edema Quality pitting 01/06/2013 None edema Onset and Resolution ongoing 01/06/2013 None edema Location on the ri ght ankle 01/06/2013 None edema Location on the le ft ankle 01/06/2013 None edema Alleviating Factors medication 01/06/2013 None edema Pertinent Findings Denies limb pain / tenderness 01/06/2013 None edema Pertinent Findings Denies limb redness 01/06/2013 None edema Pertinent Findings Denies palpitations 01/06/2013 None edema Pertinent Findings Denies tachycardia 01/06/2013 None edema Pertinent Findings Denies dyspnea 01/06/2013 None hypertension Quality imp roving 01/06/2013 None hypertension Blood Pressure Values not [...] Findings Denies lethargy 01/06/[address] ress 01/06/2013 None hypertension Alleviating Factors medication 01/06/2013 None hypertension Exacerbating Factors stress 01/06/2013 None hypertension Exacerbating Factors change in dietary habits 01/06/2013 None cough Location in the th roat 11/21/2012 None cough Quality interrupts sleep 11/21/2012 None cough Quality productive 11/21/2012 clear cough Pertinent Findings hoarseness 11/21/2012 states she was working wi th 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 cough Triggers known all ergens 11/21/2012 None cough Significant Medical Conditions pulmonary disease 11/21/2012 None hypertension Quality chr onic 10/28/2012 None hypertension Onset and Resolution ongoing 10/28/2012 None hypertension Blood Pressure Values not checking blood pressure at home 10/28/2012 None hypertension Onset of Symptom during adulthood 10/28/2012 None hypertension Blood Pressure Values patient checking blood pressure at home - did not bring in readings 10/28/2012 None hypertension Severity mi ld 10/28/[address] ress 10/28/2012 None hypertension Alleviating Factors medication 10/28/2012 None hypertension Pertinent Findings Denies anxiety 10/28/2012 None hypertension Pertinent Findings Denies decreased energy 10/28/2012 None edema Quality chronic 10/28/2012 None edema Quality pitting 10/28/2012 None edema Onset and Resolution ongoing 10/28/2012 None edema Location on both l egs 10/28/2012 None edema Triggers prolonged sitting 10/28/2012 None edema Alleviating Factors medication 10/28/2012 None edema Alleviating Factors recumbency 10/28/2012 None edema Exacerbating Factors salty foods 10/28/2012 None edema Exacerbating Factors standing 10/28/2012 None hypertension Quality chr onic 09/30/2012 None edema Quality chronic 09/30/2012 None edema Quality pitting 09/30/2012 None edema Onset and Resolution ongoing 09/30/2012 None edema Location on both l egs 09/30/2012 None hypertension Onset and Resolution ongoing 09/30/2012 None hypertension Onset of Symptom during adulthood 09/30/2012 None hypertension Blood Pressure Values patient checking blood pressure at home - did not bring in readings 09/30/2012 None hypertension Severity mi ld 09/30/[address] ress 09/30/2012 None hypertension Alleviating Factors medication 09/30/2012 None hypertension Pertinent Findings Denies anxiety 09/30/2012 None hypertension Pertinent Findings Denies decreased energy 09/30/2012 None hypertension Quality chr onic 08/14/2012 None hypertension Onset and Resolution ongoing 08/14/2012 None cellulitis Quality impro ving 08/14/2012 None hypertension Onset of Symptom during adulthood 08/14/2012 None hypertension Blood Pressure Values patient checking blood pressure at home - did not bring in readings 08/14/2012 None hypertension Severity mi ld 08/14/2012 None hypertension Pertinent Findings Denies anxiety 08/14/2012 None hypertension Pertinent Findings Denies decreased energy 08/14/[address] ress 08/14/2012 None hypertension Alleviating Factors medication 08/14/2012 None edema Quality chronic 08/05/2012 None hypertension Blood Pressure Values not checking blood pressure at home 08/05/2012 None edema Quality chronic 07/15/2012 None edema Onset and Resolution ongoing 07/15/2012 having more in her surg k nee hypertension Quality chr onic 07/15/2012 None hypertension Onset and Resolution ongoing [...] nausea 07/15/2012 None edema Location on both l egs 07/15/2012 None edema Alleviating Factors recumbency 07/15/2012 None hypertension Onset of Symptom during adulthood 07/15/2012 None hypertension Severity mi ld 07/15/[address] ress 07/15/2012 None hypertension Alleviating Factors medication 07/15/2012 None hypertension Exacerbating Factors stress 07/15/2012 None hypertension Exacerbating Factors change in dietary habits 07/15/2012 None hypertension Pertinent Findings Denies anxiety 07/15/2012 None hypertension Pertinent Findings Denies confusion 07/15/2012 None hypertension Pertinent Findings edema 07/15/2012 None 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 05/27/2012 None skin lesion Quality pigm ented 05/27/2012 None skin lesion Onset and Resolution [...] upper arm 04/23/2012 None mole check Quality oglesby ing 04/23/2012 None mole check Quality chron ic 04/23/2012 None mole check Color brown 04/23/2012 None mole check Changing Moles changing 04/23/2012 None mole check Changing Moles becoming thicker 04/23/2012 None mole check Onset and Resolution gradual in onset 04/23/2012 None mole check Limitation on Activities does not limit activities 04/23/2012 None mole check Severity mild 04/23/2012 None mole check Prior Treatments previously untreated 04/23/2012 None mole check Triggers no k nown triggers 04/23/2012 None mole check Significant History skin cancer 04/23/2012 None mole check Alleviating Factors no alleviating factors 04/23/2012 None mole check Pertinent Findings Denies flushing 04/23/2012 None mole check Pertinent Findings itching 04/23/2012 None mole check Pertinent Findings Denies tenderness 04/23/2012 None hypertension Quality chr onic 03/25/2012 None hypertension Onset and Resolution ongoing 03/25/2012 None hypertension Onset of Symptom during adulthood 03/25/2012 None hypertension Severity no t consistently severe symptoms, the symptoms fluctuate from no symptoms to anxiety and headaches 03/25/2012 None knee pain Location in th e anterior region 03/25/2012 None knee pain Quality chronic 03/25/2012 None knee pain Limitation on Activities allows weight bearing activity 03/25/2012 None knee pain Significant Medical Conditions degenerative joint disease 03/25/2012 None knee pain Significant Medications NSAID's 03/25/2012 takes 2 tylenol once lindsay y knee pain Mechanism of injury unknown 03/25/2012 None knee pain Alleviating Factors ice compression 03/25/2012 None knee pain Alleviating Factors NSAID's 03/25/2012 None knee pain Alleviating Factors rest 03/25/2012 None knee pain Exacerbating Factors exertion 03/25/2012 None knee pain Exacerbating Factors weight bearing 03/25/2012 None knee pain Frequency of Episodes increasing 03/25/[address] ress 03/25/2012 None hypertension Alleviating Factors medication 03/25/2012 None hypertension Quality chr onic 03/12/2012 None hypertension Onset and Resolution ongoing 03/12/2012 None hypertension Onset of Symptom during adulthood 03/12/2012 None hypertension Blood Pressure Values patient checking blood pressure at home - did not bring in readings 03/12/2012 None hypertension Severity no t consistently severe symptoms, the symptoms fluctuate from no symptoms to anxiety and headaches 03/12/2012 None hypertension Frequency of Episodes unchanged 03/12/[address] ress 03/12/2012 None hypertension Alleviating Factors medication 03/12/2012 None hypertension Pertinent Findings Denies dizziness 03/12/2012 None hypertension Pertinent Findings Denies dyspnea 03/12/2012 None hypertension Pertinent Findings Denies orthostatic hypotension 03/12/2012 None hypertension Pertinent Findings Denies palpitations 03/12/2012 None hypertension Pertinent Findings Denies tachycardia 03/12/2012 None edema Quality acute 01/23/2012 None edema Onset and Resolution ongoing 01/23/2012 None hypertension Quality chr onic 01/23/2012 None hypertension Onset and Resolution ongoing 01/23/2012 None edema Limitation on Activities does not limit activities 01/23/2012 None edema Frequency of Episodes daily 01/23/2012 None edema Significant Medications diuretics 01/23/2012 None edema Triggers diet fraser ge 01/23/2012 None edema Triggers prolonged sitting 01/23/2012 None edema Alleviating Factors recumbency 01/23/2012 None edema Alleviating Factors medication 01/23/2012 None edema Exacerbating Factors salty foods 01/23/2012 None edema Location on both l egs 01/23/2012 None edema Pertinent Findings Denies back pain 01/23/2012 None edema Pertinent Findings Denies dark urine 01/23/2012 None edema Pertinent Findings Denies dyspnea 01/23/[address] ress 01/23/2012 None hypertension Quality imp roving 01/23/2012 None hypertension Onset of Symptom during adulthood 01/23/2012 None hypertension Blood Pressure Values Stage 0:SBP 130-139 mmHg / DBP 85-89 mmHg 01/23/2012 None hypertension Severity mi ld 01/23/2012 None breast complaint Location in the left nipple 01/12/2012 None breast complaint Quality skin color change 01/12/2012 None breast complaint Quality pain 01/12/2012 pt describes it as discom fort and wears a kleenex in her bra [...] worsening 12/25/2011 None blood pressure followup Blood Pressu re Values pt checking blood pressure - see scanned document 12/25/2011 None blood pressure followup Blood Pressu re Values Stage 2:SBP 160-179 mmHg / DBP [...] 12/25/2011 None blood pressure followup Onset and Re solution ongoing 12/25/2011 None blood pressure followup Frequency of Episodes unchanged 12/25/2011 Non e blood pressure followup Alleviating Factor s medication 12/04/2011 None blood pressure followup Blood Pressu re Values not checking blood pressure at home 12/04/2011 None blood pressure followup Frequency of Episodes unchanged 12/04/2011 Non e blood pressure followup Onset and Re solution ongoing 12/04/2011 None blood pressure followup Onset [...] worsening 09/20/2011 None blood pressure followup Blood Pressu re Values pt checking blood pressure - see scanned document 09/20/2011 None blood pressure followup Blood Pressu re Values Stage 2:SBP 160-179 mmHg / DBP [...] Pertinent Findings obesity 09/20/2011 None hypertension Quality chr onic 09/06/2011 None hypertension Quality wor sening 09/06/2011 None anxiety Quality chronic 09/06/2011 None dysuria Quality chronic 09/06/2011 None dysuria Onset and Resolution ongoing. 09/06/2011 Thinks it's better but wa nts to make sure her UTI is gone. hypertension Onset and Resolution ongoing 09/06/2011 None hypertension Blood Pressure Values Stage 1:SBP 140-159 mmHg / DBP 90-99 mmHg 09/06/2011 None hypertension Frequency of Episodes increasing 09/06/[address] ress 09/06/2011 None anxiety Onset and Resolution ongoing 09/06/2011 None anxiety Onset of Symptom 2 years ago 09/06/2011 but worse over the past f ew months. anxiety Limitation on Activities does not limit activities 09/06/2011 None anxiety Frequency of Episodes increasing 09/06/2011 None anxiety Triggers stress 09/06/2011 None anxiety Triggers family discord 09/06/2011 None urinary frequency Onset and Resolution ongoing 08/30/2011 on augmentin, but causing stomach upset. cont to have some back pain hypertension Quality chr onic 08/30/2011 None hypertension Onset and Resolution ongoing 08/30/2011 None hypertension Onset of Symptom during adulthood 08/30/2011 None hypertension Blood Pressure Values patient checking blood pressure at home - did not bring in readings 08/30/2011 None hypertension Severity mi ld 08/30/[address] ress 08/30/2011 None urinary frequency Quality acute 08/30/2011 None urinary frequency Triggers activity 08/30/2011 Pt with UTI - thinks it m ay be due to intercourse cauging passing of [...] reflux Frequency of Episodes most meals 05/04/2011 gonzales s quit eating onions, cut back on lettuce, increased vegetables while taking nexium gastroesophageal reflux Alleviating Factor s medication 05/04/2011 She doesn't have problems when she takes nexium before meals abdominal pain Location in the epigastric area 05/04/2011 None abdominal pain Radiating the back 05/04/2011 None abdominal pain Location in the RLQ 05/04/2011 None abdominal pain Quality s harp 05/04/2011 not extremely sharp, occu rred once, she has a hernia in that area nasal allergies Location in both nares 05/04/2011 None nasal allergies Severity moderate 05/04/2011 None nasal allergies Triggers exposure to grass/pollens 05/04/2011 None nasal allergies Triggers season change 05/04/2011 None sinus pain Quality press ure 05/04/2011 None sinus pain Alleviating Factors medication 05/04/2011 benadryl sinus pain Severity mode rate 05/04/2011 None gastroesophageal reflux Exacerbating Factors medication 05/04/2011 pr ilosec did not work on the GERD abdominal [...] acid 04/19/2011 None gastroesophageal reflux Onset and Re solution ongoing 04/19/2011 None gastroesophageal reflux Quality chronic 04/19/2011 None gastroesophageal reflux Severity moderate 04/19/2011 None gastroesophageal reflux Frequency of Episodes daily 04/19/2011 None gastroesophageal reflux Diet includes spicy foods 04/19/2011 None gastroesophageal reflux Diet includes caffeine 04/19/2011 None gastroesophageal reflux Diet includes chocolate 04/19/2011 None gastroesophageal reflux Triggers meals 04/19/2011 None cough Quality acute 04/19/2011 None cough Quality productive 04/19/2011 None cough Onset of Symptom 3 -4 days ago 04/19/2011 None cough Onset and Resolution gradual in onset 04/19/2011 None cough Significant Medical Conditions asthma 04/19/2011 None fever Quality acute 04/19/2011 None fever Onset of Symptom 1 days ago 04/19/2011 None wheezing Location diffus ladonna 04/19/2011 None wheezing Quality acute 04/19/2011 None wheezing Onset and Resolution worse during the day 04/19/2011 None wheezing Onset of Symptom 3-4 days ago 04/19/2011 None wheezing Severity modera te 04/19/2011 None Symptom Name Status Resu lt Effective Date Notes Location on the right leg 05/02/2019 None Quality acute 05/02/2019 None Onset and Resolution s udden in onset 05/02/2019 None Pertinent Findings Den ies possible abuse 05/02/2019 None Onset and Resolution s udden in onset 04/01/2019 None Location lumbar-sacral spine 04/01/2019 None Quality intermittent 04/01/2019 None Onset of Symptom year s ago 04/01/2019 None Pertinent Findings ext remity weakness 04/01/2019 None Quality acute 04/01/2019 None Quality improving 04/01/2019 None Frequency of Episodes decreasing 04/01/2019 None Pertinent Findings pos t nasal drip 04/01/2019 (clear)- was yellowish Pertinent Findings dys pnea 04/01/2019 "sometimes" Onset and Resolution D enies ongoing 04/01/2019 None Location in the throat 03/11/2019 None Quality productive 03/11/2019 None Onset and Resolution s udden in onset 03/11/2019 None Onset of Symptom 1 day s ago 03/11/2019 None Pertinent Findings Den ies chest discomfort 03/11/2019 None Pertinent Findings Den ies dyspnea 03/11/2019 None Pertinent Findings Den ies fever 03/11/2019 None Pertinent Findings ihsan rseness 03/11/2019 None Location lumbar-sacral spine 03/11/2019 None Quality intermittent 03/11/2019 None Onset of Symptom _ yea rs ago 03/11/2019 None Pertinent Findings ext remity weakness 03/11/2019 None Onset and Resolution o ngoing 03/11/2019 None Onset of Symptom _ mon ths ago 03/11/2019 None Frequency of Episodes daily 03/11/2019 None Pertinent Findings chel k pain 03/11/2019 None Quality chronic 09/03/2018 None Quality primary hypert ension 09/03/2018 None Onset and Resolution o ngoing 09/03/2018 None Onset of Symptom durin g adulthood 09/03/2018 None Blood Pressure Values not checking blood pressure at home 09/03/2018 None Alleviating Factors me dication 09/03/2018 None Pertinent Findings dec reased energy 09/03/2018 None Pertinent Findings diz ziness 09/03/2018 at times when she first g ets up in the mornings Pertinent Findings dys pnea 09/03/2018 occasionally- wears oxyge n at night Pertinent Findings maria de jesus ma 09/03/2018 -wears bilateral hose Onset and Resolution g radual in onset 09/03/2018 None Exacerbating Factors d iet 09/03/2018 None Location on both sides 09/03/2018 None Quality intermittent 09/03/2018 None Quality aching 09/03/[address] Factors re st 09/03/2018 None Exacerbating Factors s tanding or walking 09/03/2018 None hypertension Quality shira tania hypertension 05/29/2018 None hypertension Onset and Resolution ongoing 05/29/2018 None hypertension Onset of Symptom during adulthood 05/29/2018 None hypertension Blood Pressure Values not checking blood pressure at home 05/29/2018 None hypertension Alleviating Factors medication 05/29/2018 None hypertension Pertinent Findings decreased energy 05/29/2018 None hypertension Pertinent Findings dizziness 05/29/2018 at times when she first g ets up in the mornings hypertension Pertinent Findings dyspnea 05/29/2018 occasionally- wears oxyge n at night hypertension Pertinent Findings edema 05/29/2018 -wears bilateral hose 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 05/29/2018 None hypothyroid Onset and Resolution ongoing 05/29/2018 None hypothyroid Alleviating Factors medication 05/29/2018 None hypertension Quality chr onic 05/29/2018 None hyperlipidemia Onset and Resolution gradual in onset 05/29/2018 None hyperlipidemia Onset of Symptom during adulthood 05/29/2018 None hyperlipidemia Alleviating Factors medication 05/29/2018 None hyperlipidemia Exacerbating Factors diet 05/29/2018 None low back pain Location o n both sides 05/29/2018 None low back pain Quality ac ministerio 05/29/2018 None low back pain Onset and Resolution ongoing 05/29/2018 None low back pain Exacerbating Factors standing or walking 05/29/2018 None low back pain Quality in termittent 05/29/2018 None low back pain Alleviating Factors [...] Annual Medicare Wellness Exam Blood Pressure (self reported) diagnosed with hypertension 04/25/20 18 None Annual Medicare Wellness Exam Choles terol (self reported) diagnosed with elevated cholesterol 04/25/2018 None Annual Medicare Wellness Exam Hemagl obin A-1C (self reported) don't know 04/25/2018 No ne Annual Medicare Wellness Exam Hemagl obin A-1C (self reported) never checked 04/25/2018 None Annual Medicare Wellness Exam Hours of Sleep 5-6 04/25/2018 None Annual Medicare Wellness Exam Intera ction with Friends no 04/25/2018 None Annual Medicare Wellness Exam Exerci se Habits exercises 5 days per week 04/25/2018 None Annual Medicare Wellness Exam Exerci se Habits exercises 15 minutes per day 04/25/2018 None Annual Medicare Wellness Exam Descri be Your Health fair 04/25/2018 None Annual Medicare Wellness Exam Depres omar (last 6 months) some of the time 04/25/2018 None Annual Medicare Wellness Exam Depres omar or Hopelessness some of the time 04/25/2018 None Annual Medicare Wellness Exam Intere sts & Pleasure almost never 04/25/2018 None Annual Medicare Wellness Exam Stress almost never 04/25/2018 None Annual Medicare Wellness Exam Handli ng Stress usually sheldon effectively 04/25/2018 None Annual Medicare Wellness Exam Life S atisfaction satisfied 04/25/2018 Non e Annual Medicare Wellness Exam Social & Emotional Support always 04/25/2018 None Annual Medicare Wellness Exam Smokin g and Tobacco Use non smoker 04/25/2018 No ne Annual Medicare Wellness Exam Sun Exposure protects skin when outdoors: yes 04/25/2018 None Annual Medicare Wellness Exam Motor Vehicle Safety always fastens seat belt: yes 2017 None Annual Medicare Wellness Exam Motor Vehicle Safety drives after drinking: no 04/25/2018 None Annual Medicare Wellness Exam Motor Vehicle Safety rides with someone who has been drinking: no 04/25/2018 None Annual Medicare Wellness Exam Nutrition servings of fried food / high fat foods per day: 0-1 04/25/2018 None Annual Medicare Wellness Exam Nutrition [...] Exacerbating Factors Q-tips 02/06/2018 None hypertension Quality shira marin hypertension 01/23/2018 None hypertension Onset and Resolution ongoing 01/23/2018 None hypertension Onset of Symptom during adulthood 01/23/2018 None hypertension Blood Pressure Values not checking blood pressure at home 01/23/2018 None hypertension Alleviating Factors medication 01/23/2018 None hypertension Pertinent Findings dizziness 01/23/2018 at times when she first g ets up in the mornings hypertension Pertinent Findings dyspnea 01/23/2018 occasionally- wears oxyge n at night hypertension Pertinent Findings edema 01/23/2018 None hypothyroid Onset and Resolution ongoing 01/23/2018 None hypothyroid Alleviating Factors medication 01/23/2018 None 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 None hypertension Pertinent Findings decreased energy 01/23/2018 None cough Quality acute 09/26/2017 None cough Quality intermitte nt 09/26/2017 None cough Quality productive 09/26/2017 None cough Onset and Resolution sudden in onset 09/26/2017 None cough Onset and Resolution ongoing 09/26/2017 None cough Pertinent Findings chills 09/26/2017 -states that she always f eels cold cough Quality improving 09/26/2017 None cough Onset of Symptom 1 .5 months ago 09/26/2017 None cough Frequency of Episodes decreasing 09/26/2017 None hypertension Quality shira marin hypertension 09/12/2017 None hypertension Onset and Resolution ongoing 09/12/2017 None hypertension Onset of Symptom during adulthood 09/12/2017 None hypertension Alleviating Factors medication 09/12/2017 None hypertension Pertinent Findings dizziness 09/12/2017 when she first gets up in the mornings hypertension Pertinent Findings dyspnea 09/12/2017 occasionally- wears oxyge n at night hypertension Pertinent Findings edema 09/12/2017 None hypothyroid Onset and Resolution ongoing 09/12/2017 None hypothyroid Alleviating Factors medication 09/12/2017 None cough Quality acute 09/12/2017 None cough Quality intermitte nt 09/12/2017 None cough Onset and Resolution sudden in onset 09/12/2017 None cough Onset and Resolution ongoing 09/12/2017 None cough Onset of Symptom 1 + months ago 09/12/2017 None cough Pertinent Findings facial pain 09/12/2017 None cough Pertinent Findings chills 09/12/2017 -states that she always f eels cold cough Quality productive 09/12/2017 None cough Pertinent Findings sputum production 09/12/2017 (yellow) cough Pertinent Findings post nasal drip 09/12/2017 (clear) hypertension Blood Pressure Values not checking blood pressure at home 09/12/2017 None cough Quality acute 08/31/2017 None cough Quality intermitte nt 08/31/2017 None cough Onset and Resolution sudden [...] Findings hoarseness 08/09/2017 None cough Quality acute 08/09/2017 None cough Quality intermitte nt 08/09/2017 None cough Onset and Resolution sudden [...] known associated factors 08/09/2017 None hypertension Quality int ermittent 05/07/2017 None hypertension Quality shira tania hypertension 05/07/2017 None hypertension Onset and Resolution ongoing 05/07/2017 None hypertension Onset of Symptom during adulthood 05/07/2017 None hypertension Alleviating Factors medication 05/07/2017 None hypertension Pertinent Findings dizziness 05/07/2017 occasioinally- in the mor nings when she first wakes up hypertension Pertinent Findings dyspnea 05/07/2017 occasionally- wears oxyge n at night hypertension Pertinent Findings edema 05/07/2017 None hypothyroid Onset and Resolution ongoing 05/07/2017 None hypothyroid Alleviating Factors medication 05/07/2017 None knee pain Location on th e left 05/07/2017 None knee pain Quality interm ittent 05/07/2017 None knee pain Onset and Resolution [...] Blood Glucose (self reported) don't know 04/12/2017 No ne Annual Medicare Wellness Exam Blood Pressure (self reported) low / normal (120/80) 04/12/2017 None Annual Medicare Wellness Exam Choles terol (self reported) desireable (below 200) 04/12/2017 None Annual Medicare Wellness Exam Depres omar (last 6 months) some of the time 04/12/2017 None Annual Medicare Wellness Exam Depres omar or Hopelessness almost never 04/12/2017 None Annual Medicare Wellness Exam Descri be Your Health good 04/12/2017 None Annual Medicare Wellness Exam Exerci se Habits exercises 3 days per week 04/12/2017 None Annual Medicare Wellness Exam Exerci se Habits exercises 30 minutes per day 04/12/2017 None Annual Medicare Wellness Exam Corina ng Stress usually sheldon effectively 04/12/2017 None Annual Medicare Wellness Exam Hemagl obin A-1C (self reported) don't know 04/12/2017 No ne Annual Medicare Wellness Exam Hours of Sleep 6 04/12/2017 None Annual Medicare Wellness Exam Intera ction with Friends yes 04/12/2017 None Annual Medicare Wellness Exam Intere sts & Pleasure some of the time 04/12/2017 None Annual Medicare Wellness Exam Life S atisfaction satisfied 04/12/2017 Non e Annual Medicare Wellness Exam Motor Vehicle Safety always fastens seat belt: y 04/12/20 17 None Annual Medicare Wellness Exam Motor Vehicle Safety drives after drinking: nn 04/12/2017 None Annual Medicare Wellness Exam Motor Vehicle Safety rides with someone who has been drinking: n 04/12/2017 None Annual Medicare Wellness Exam Nutrition servings of fried food / high fat foods per day: 0 04/12/2017 None Annual Medicare Wellness Exam Nutrition servings of high fiber / whole grain per day: 1 04/12/2017 None Annual Medicare Wellness Exam Nutrition servings of vegetables / fruit per day: 2 04/12/2017 None Annual Medicare Wellness Exam Smokin g and Tobacco Use non smoker 04/12/2017 No ne Annual Medicare Wellness Exam Social & Emotional Support always 04/12/2017 None Annual Medicare Wellness Exam Stress most of the time 04/12/2017 None Annual Medicare Wellness Exam Sun Exposure protects skin when outdoors: y 04/12/2017 None cough Location in the naresh ng 02/05/2017 None cough Location in the th roat 02/05/2017 None cough Quality acute 02/05/2017 None cough Onset and Resolution ongoing 02/05/2017 None cough Onset of Symptom 2 weeks ago 02/05/2017 None cough Limitation on Activities does not limit activities 02/05/2017 None cough Frequency of Episodes unchanged 02/05/2017 None cough Triggers known all ergens 02/05/2017 None cough Pertinent Findings Denies chest discomfort 02/05/2017 None cough Pertinent Findings Denies dyspnea 02/05/2017 None cough Pertinent Findings Denies fever 02/05/2017 None cough Pertinent Findings nasal congestion 02/05/2017 None cough Location in the naresh ng 02/02/2017 None cough Location in the th roat 02/02/2017 None cough Quality acute 02/02/2017 None cough Onset and Resolution ongoing 02/02/2017 None cough Onset of Symptom 2 weeks ago 02/02/2017 None cough Limitation on Activities does not limit activities 02/02/2017 None cough Frequency of Episodes unchanged 02/02/2017 None cough Triggers known all ergens 02/02/2017 None cough Pertinent Findings Denies chest [...] urgency 02/02/2017 None cough Location in the th roat 01/15/2017 None cough Location in the naresh ng 01/15/2017 None cough Quality acute 01/15/2017 None cough Onset and Resolution ongoing 01/15/2017 None cough Onset of Symptom 2 weeks ago 01/15/2017 None cough Limitation on Activities does not limit activities 01/15/2017 None cough Frequency of Episodes unchanged 01/15/2017 None cough Triggers known all ergens 01/15/2017 None cough Pertinent Findings Denies chest discomfort 01/15/2017 None cough Pertinent Findings Denies dyspnea 01/15/2017 None cough Pertinent Findings Denies fever 01/15/2017 None cough Pertinent Findings nasal congestion 01/15/2017 None hypertension Quality int ermittent 01/04/2017 None hypertension Onset and Resolution ongoing 01/04/2017 None hypertension Blood Pressure Values patient checking blood pressure at home - did not bring in readings 01/04/2017 None hypertension Alleviating Factors medication 01/04/2017 None hypertension Pertinent Findings dizziness 01/04/2017 occasioinally- in the mor nings when she first wakes up hypertension Pertinent Findings dyspnea 01/04/2017 occasionally- wears oxyge n at night hypertension Pertinent Findings edema 01/04/2017 wears bilateral knee high madi hose hypothyroid Onset and Resolution ongoing 01/04/2017 None hypothyroid Alleviating Factors medication 01/04/2017 None knee pain Location on th e left 01/04/2017 None knee pain Quality worsen ing 01/04/2017 None knee pain Onset and Resolution gradual in onset 01/04/2017 None knee pain Quality interm ittent 01/04/2017 None knee pain Frequency of Episodes [...] pain with movement 01/04/2017 None hypertension Quality shira tania hypertension 01/04/2017 None hypertension Onset of Symptom during adulthood 01/04/2017 None hypertension Quality int ermittent 09/07/2016 None hypertension Onset and Resolution ongoing 09/07/2016 None hypertension Blood Pressure Values patient checking blood pressure at home - did not bring in readings 09/07/2016 pt reports that occasionally her lbood p ressure will be in the 180's/90's - hypertension Pertinent Findings dizziness 09/07/2016 occasioinally hypertension Pertinent Findings edema 09/07/2016 wears bilateral knee high madi hose hypertension Alleviating Factors medication 09/07/2016 None hypothyroid Onset and Resolution ongoing 09/07/2016 None hypothyroid Alleviating Factors medication 09/07/2016 None hypertension Pertinent Findings dyspnea 09/07/2016 occasionally- wears oxyge n at night gait abnormality Quality unsteady 09/07/2016 None gait abnormality Onset and Resolution ongoing 09/07/2016 None hypertension Quality int ermittent 07/06/2016 None hypertension Onset and Resolution ongoing 07/06/2016 None hypertension Blood Pressure Values patient checking blood pressure at home - did not bring in readings 07/06/2016 None hypertension Pertinent Findings Denies dizziness 07/06/2016 None hypertension Pertinent Findings edema 07/06/2016 None hypertension Quality chr onic 06/08/2016 None hypertension Onset and Resolution ongoing 06/08/2016 None hypertension Onset of Symptom during adulthood 06/08/2016 None hypertension Severity no t consistently severe symptoms, the symptoms fluctuate from no symptoms to anxiety and headaches 06/08/2016 None hypertension Pertinent Findings Denies dizziness 06/08/2016 None hypertension Pertinent Findings dyspnea 06/08/2016 with activity or anxiousn ess hypertension Pertinent Findings edema 06/08/2016 -wearing knee high compre ssion hose joint complaint Location on both knees [...] Alleviating Factors medication 06/08/2016 None 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 None hypothyroid Onset and Resolution ongoing 06/08/2016 None hypothyroid Onset of Symptom during adulthood 06/08/2016 None hypothyroid Alleviating Factors medication 06/08/2016 None hypertension Quality int ermittent 06/08/2016 None hypertension Blood Pressure Values pt [...] the back 06/08/2016 None abdominal pain Quality i ntermittent 06/08/2016 None abdominal pain Onset and Resolution ongoing 06/08/2016 None abdominal pain Onset of Symptom years ago 06/08/2016 None abdominal pain Timing of Episodes in the morning 06/08/2016 None abdominal pain Triggers no known associated factors 06/08/2016 None hypertension Quality int ermittent 04/17/2016 None hypertension Onset and Resolution ongoing 04/17/2016 None hypertension Blood Pressure Values patient checking blood pressure at home - did not bring in readings 04/17/2016 None hypertension Pertinent Findings Denies dizziness 04/17/2016 None hypertension Pertinent Findings edema 04/17/2016 None hypertension Quality chr onic 04/06/2016 None hypertension Onset and Resolution ongoing 04/06/2016 None hypertension Onset of Symptom during adulthood 04/06/2016 None hypertension Blood Pressure Values not checking blood pressure at home 04/06/2016 None hypertension Severity no t consistently severe symptoms, the symptoms fluctuate from [...] Alleviating Factors medication 04/06/2016 None 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 04/06/2016 None hypothyroid Onset and Resolution ongoing 04/06/2016 None hypothyroid Onset of Symptom during adulthood 04/06/2016 None hypothyroid Severity mil d with subclinical signs 04/06/2016 None hypothyroid Frequency of Episodes unchanged 04/06/2016 None hypothyroid Alleviating Factors medication 04/06/2016 None hypertension Quality chr onic 03/09/2016 None hypertension Onset and Resolution ongoing [...] Alleviating Factors medication 03/09/2016 None 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 03/09/2016 None hypothyroid Onset and Resolution ongoing 03/09/2016 None hypothyroid Onset of Symptom during adulthood 03/09/2016 None hypothyroid Severity mil d with subclinical signs 03/09/2016 None hypothyroid Frequency of Episodes unchanged 03/09/2016 None hypothyroid Alleviating Factors medication 03/09/2016 None hypertension Severity no t consistently severe symptoms, the symptoms fluctuate from no symptoms to anxiety and headaches 03/09/2016 None hypertension Frequency of Episodes unchanged 03/09/2016 None hypertension Quality chr onic 01/18/2016 None hypertension Onset and Resolution ongoing [...] Alleviating Factors medication 01/18/2016 None 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 01/18/2016 None hypothyroid Onset and Resolution ongoing 01/18/2016 None hypothyroid Onset of Symptom during adulthood 01/18/2016 None hypothyroid Severity mil d with subclinical signs 01/18/2016 None hypothyroid Frequency of Episodes unchanged 01/18/2016 None hypothyroid Alleviating Factors medication 01/18/2016 None hypertension Quality chr onic 09/09/2015 None hypertension Onset and Resolution ongoing [...] Left hurts but not constantly 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 09/09/2015 None hypothyroid Onset and Resolution ongoing 09/09/2015 None hypothyroid Onset of Symptom during adulthood 09/09/2015 None hypothyroid Severity mil d with subclinical signs 09/09/2015 None hypothyroid Frequency of Episodes unchanged 09/09/2015 None hypertension Quality chr onic 12/25/2014 None hypertension Onset and Resolution ongoing 12/25/2014 None hypertension Onset of Symptom during adulthood 12/25/2014 None hypertension Blood Pressure Values not checking blood pressure at home 12/25/2014 None hypertension Pertinent Findings Denies anxiety 12/25/2014 None hypertension Pertinent Findings edema 12/25/2014 None hypertension Pertinent Findings Denies dizziness 12/25/2014 None hypertension Pertinent Findings dyspnea 12/25/2014 with activity hypertension Quality chr onic 10/13/2014 None hypertension Onset and Resolution ongoing 10/13/2014 None hypertension Onset of Symptom during adulthood 10/13/2014 None hypertension Blood Pressure Values not checking blood pressure at home 10/13/2014 None hypertension Pertinent Findings Denies anxiety 10/13/2014 None hypertension Quality chr onic 08/28/2014 None hypertension Onset and Resolution ongoing [...] which is her heart beat arrhythmia Quality irreg ular beats 08/28/2014 None arrhythmia Onset and Resolution ongoing 08/28/2014 Says that the Toprol help ed this but made her pulse too low arrhythmia Pertinent Findings dizziness 08/28/2014 None arrhythmia Pertinent Findings dyspnea 08/28/2014 None dyspnea Onset and Resolution ongoing 05/07/2014 None dyspnea Quality chronic 05/07/2014 waking up at night, wearing oxgyen but q uestions needing an overnight oxygen study cough Location in the naresh ng 05/07/2014 None cough Quality acute 05/07/2014 None cough Onset and Resolution ongoing 05/07/2014 None cough Onset of Symptom 2 -3 days ago 05/07/2014 None cough Limitation on Activities does not limit activities 05/07/2014 None cough Frequency of Episodes increasing 05/07/2014 None cough Triggers known all ergens 05/07/2014 None cough Alleviating Factors OTC medications 05/07/2014 None cough Pertinent Findings dyspnea 05/07/2014 None cough Pertinent Findings Denies fever 05/07/2014 None cough Pertinent Findings Denies ill contacts 05/07/2014 None cough Pertinent Findings Denies tachypnea 05/07/2014 None cough Pertinent Findings sputum production 05/07/2014 None cough Significant Medical Conditions pulmonary disease 05/07/2014 None hypertension Quality chr onic 04/16/2014 None hypertension Onset and Resolution ongoing 04/16/2014 None hypertension Onset of Symptom during adulthood 04/16/2014 None hypertension Pertinent Findings Denies anxiety 04/16/2014 None hypertension Blood Pressure Values not checking blood pressure at home 04/16/2014 None skin lesion Onset and Resolution ongoing 01/27/2014 None skin lesion Onset of Symptom during adulthood 01/27/2014 None skin lesion Quality acute 01/27/2014 irritated lesion right shoulder blade an d left forearm skin lesion Severity mild 01/27/2014 None skin lesion Frequency of Episodes increasing 01/27/2014 None skin lesion Triggers no known associated factors 01/27/2014 None fatigue Quality chronic 01/21/2014 None hypertension Quality chr onic 01/21/2014 None hypertension Onset and Resolution ongoing 01/21/2014 None hypertension Blood Pressure Values pt checking blood pressure - see scanned document 01/21/2014 None fatigue Onset and Resolution ongoing 01/21/2014 states she is not sleepin g well. needs order to cont oxygen mole [...] anxiety 01/21/2014 None wrist pain Location on t he right 01/07/2014 None wrist pain Pertinent Findings pain with movement 01/07/2014 None wrist pain Pertinent Findings Denies numbness 01/07/2014 None wrist pain Pertinent Findings Denies decreased range of motion 01/07/2014 None wrist pain Pertinent Findings swelling 01/07/2014 None wrist pain Pertinent Findings Denies stiffness 01/07/2014 None wrist pain Quality chron ic 01/07/2014 None wrist pain Severity mode rate 01/07/2014 None sinus congestion Pertinent Findings cough 12/26/2013 None sinus congestion Pertinent Findings Denies decreased energy level 12/26/2013 None sinus congestion Pertinent Findings Denies fever 12/26/2013 None cough Location in the th roat 12/26/2013 None cough Pertinent Findings Denies fever 12/26/2013 None cough Pertinent Findings Denies dyspnea 12/26/2013 None sinus congestion Onset and Resolution ongoing 12/26/2013 None cough Quality acute 12/26/2013 None cough Onset and Resolution ongoing 12/26/2013 [...] nasal congestion 11/12/2013 None sore throat Location dif fusely 11/12/2013 None sore throat Quality acute 11/12/2013 None sore throat Onset and Resolution ongoing 11/12/2013 None sore throat Onset of Symptom 2 weeks ago 11/12/2013 None sore throat Limitation on Activities does not limit oral intake 11/12/2013 None sore throat Triggers all ergens 11/12/2013 None sore throat Pertinent Findings Denies [...] Findings Denies vomiting 10/09/2013 None hypertension Quality chr onic 04/03/2013 None hypertension Quality sta ble 04/03/2013 None hypertension Onset and Resolution ongoing 04/03/2013 None hypertension Pertinent Findings Denies decreased energy 04/03/2013 None hypertension Alleviating Factors medication 04/03/2013 None hypertension Exacerbating Factors stress 04/03/2013 None hypertension Blood Pressure Values patient checking blood pressure at home - did not bring in readings 04/03/2013 None hypertension Severity mi ld 04/03/2013 None hypertension Significant Family History hypertension 04/03/2013 None edema Quality chronic 01/06/2013 None edema Quality pitting 01/06/2013 None edema Onset and Resolution ongoing 01/06/2013 None edema Location on the ri ght ankle 01/06/2013 None edema Location on the le ft ankle 01/06/2013 None edema Alleviating Factors medication 01/06/2013 None edema Pertinent Findings Denies limb pain / tenderness 01/06/2013 None edema Pertinent Findings Denies limb redness 01/06/2013 None edema Pertinent Findings Denies palpitations 01/06/2013 None edema Pertinent Findings Denies tachycardia 01/06/2013 None edema Pertinent Findings Denies dyspnea 01/06/2013 None hypertension Quality imp roving 01/06/2013 None hypertension Blood Pressure Values not [...] Findings Denies lethargy 01/06/[address] ress 01/06/2013 None hypertension Alleviating Factors medication 01/06/2013 None hypertension Exacerbating Factors stress 01/06/2013 None hypertension Exacerbating Factors change in dietary habits 01/06/2013 None cough Location in the th roat 11/21/2012 None cough Quality interrupts sleep 11/21/2012 None cough Quality productive 11/21/2012 clear cough Pertinent Findings hoarseness 11/21/2012 states she was working wi 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 cough Triggers known all ergens 11/21/2012 None cough Significant Medical Conditions pulmonary disease 11/21/2012 None hypertension Quality chr onic 10/28/2012 None hypertension Onset and Resolution ongoing 10/28/2012 None hypertension Blood Pressure Values not checking blood pressure at home 10/28/2012 None hypertension Onset of Symptom during adulthood 10/28/2012 None hypertension Blood Pressure Values patient checking blood pressure at home - did not bring in readings 10/28/2012 None hypertension Severity mi ld 10/28/[address] ress 10/28/2012 None hypertension Alleviating Factors medication 10/28/2012 None hypertension Pertinent Findings Denies anxiety 10/28/2012 None hypertension Pertinent Findings Denies decreased energy 10/28/2012 None edema Quality chronic 10/28/2012 None edema Quality pitting 10/28/2012 None edema Onset and Resolution ongoing 10/28/2012 None edema Location on both l egs 10/28/2012 None edema Triggers prolonged sitting 10/28/2012 None edema Alleviating Factors medication 10/28/2012 None edema Alleviating Factors recumbency 10/28/2012 None edema Exacerbating Factors salty foods 10/28/2012 None edema Exacerbating Factors standing 10/28/2012 None hypertension Quality chr onic 09/30/2012 None edema Quality chronic 09/30/2012 None edema Quality pitting 09/30/2012 None edema Onset and Resolution ongoing 09/30/2012 None edema Location on both l egs 09/30/2012 None hypertension Onset and Resolution ongoing 09/30/2012 None hypertension Onset of Symptom during adulthood 09/30/2012 None hypertension Blood Pressure Values patient checking blood pressure at home - did not bring in readings 09/30/2012 None hypertension Severity mi ld 09/30/[address] ress 09/30/2012 None hypertension Alleviating Factors medication 09/30/2012 None hypertension Pertinent Findings Denies anxiety 09/30/2012 None hypertension Pertinent Findings Denies decreased energy 09/30/2012 None hypertension Quality chr onic 08/14/2012 None hypertension Onset and Resolution ongoing 08/14/2012 None cellulitis Quality impro ving 08/14/2012 None hypertension Onset of Symptom during adulthood 08/14/2012 None hypertension Blood Pressure Values patient checking blood pressure at home - did not bring in readings 08/14/2012 None hypertension Severity mi ld 08/14/2012 None hypertension Pertinent Findings Denies anxiety 08/14/2012 None hypertension Pertinent Findings Denies decreased energy 08/14/[address] ress 08/14/2012 None hypertension Alleviating Factors medication 08/14/2012 None edema Quality chronic 08/05/2012 None hypertension Blood Pressure Values not checking blood pressure at home 08/05/2012 None edema Quality chronic 07/15/2012 None edema Onset and Resolution ongoing 07/15/2012 having more in her surg k nee hypertension Quality chr onic 07/15/2012 None hypertension Onset and Resolution ongoing [...] nausea 07/15/2012 None edema Location on both l egs 07/15/2012 None edema Alleviating Factors recumbency 07/15/2012 None hypertension Onset of Symptom during adulthood 07/15/2012 None hypertension Severity mi ld 07/15/[address] ress 07/15/2012 None hypertension Alleviating Factors medication 07/15/2012 None hypertension Exacerbating Factors stress 07/15/2012 None hypertension Exacerbating Factors change in dietary habits 07/15/2012 None hypertension Pertinent Findings Denies anxiety 07/15/2012 None hypertension Pertinent Findings Denies confusion 07/15/2012 None hypertension Pertinent Findings edema 07/15/2012 None 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 05/27/2012 None skin lesion Quality pigm ented 05/27/2012 None skin lesion Onset and Resolution [...] upper arm 04/23/2012 None mole check Quality oglesby ing 04/23/2012 None mole check Quality chron ic 04/23/2012 None mole check Color brown 04/23/2012 None mole check Changing Moles changing 04/23/2012 None mole check Changing Moles becoming thicker 04/23/2012 None mole check Onset and Resolution gradual in onset 04/23/2012 None mole check Limitation on Activities does not limit activities 04/23/2012 None mole check Severity mild 04/23/2012 None mole check Prior Treatments previously untreated 04/23/2012 None mole check Triggers no k nown triggers 04/23/2012 None mole check Significant History skin cancer 04/23/2012 None mole check Alleviating Factors no alleviating factors 04/23/2012 None mole check Pertinent Findings Denies flushing 04/23/2012 None mole check Pertinent Findings itching 04/23/2012 None mole check Pertinent Findings Denies tenderness 04/23/2012 None hypertension Quality chr onic 03/25/2012 None hypertension Onset and Resolution ongoing 03/25/2012 None hypertension Onset of Symptom during adulthood 03/25/2012 None hypertension Severity no t consistently severe symptoms, the symptoms fluctuate from no symptoms to anxiety and headaches 03/25/2012 None knee pain Location in th e anterior region 03/25/2012 None knee pain Quality chronic 03/25/2012 None knee pain Limitation on Activities allows weight bearing activity 03/25/2012 None knee pain Significant Medical Conditions degenerative joint disease 03/25/2012 None knee pain Significant Medications NSAID's 03/25/2012 takes 2 tylenol once lindsay y knee pain Mechanism of injury unknown 03/25/2012 None knee pain Alleviating Factors ice compression 03/25/2012 None knee pain Alleviating Factors NSAID's 03/25/2012 None knee pain Alleviating Factors rest 03/25/2012 None knee pain Exacerbating Factors exertion 03/25/2012 None knee pain Exacerbating Factors weight bearing 03/25/2012 None knee pain Frequency of Episodes increasing 03/25/[address] ress 03/25/2012 None hypertension Alleviating Factors medication 03/25/2012 None hypertension Quality [facility] onic 03/12/2012 None hypertension Onset and Resolution ongoing 03/12/2012 None hypertension Onset of Symptom during adulthood 03/12/2012 None hypertension Blood Pressure Values patient checking blood pressure at home - did not bring in readings 03/12/2012 None hypertension Severity no t consistently severe symptoms, the symptoms fluctuate from no symptoms to anxiety and headaches 03/12/2012 None hypertension Frequency of Episodes unchanged 03/12/[address] ress 03/12/2012 None hypertension Alleviating Factors medication 03/12/2012 None hypertension Pertinent Findings Denies dizziness 03/12/2012 None hypertension Pertinent Findings Denies dyspnea 03/12/2012 None hypertension Pertinent Findings Denies orthostatic hypotension 03/12/2012 None hypertension Pertinent Findings Denies palpitations 03/12/2012 None hypertension Pertinent Findings Denies tachycardia 03/12/2012 None edema Quality acute 01/23/2012 None edema Onset and Resolution ongoing 01/23/2012 None hypertension Quality chr onic 01/23/2012 None hypertension Onset and Resolution ongoing 01/23/2012 None edema Limitation on Activities does not limit activities 01/23/2012 None edema Frequency of Episodes daily 01/23/2012 None edema Significant Medications diuretics 01/23/2012 None edema Triggers diet fraser ge 01/23/2012 None edema Triggers prolonged sitting 01/23/2012 None edema Alleviating Factors recumbency 01/23/2012 None edema Alleviating Factors medication 01/23/2012 None edema Exacerbating Factors salty foods 01/23/2012 None edema Location on both l egs 01/23/2012 None edema Pertinent Findings Denies back pain 01/23/2012 None edema Pertinent Findings Denies dark urine 01/23/2012 None edema Pertinent Findings Denies dyspnea 01/23/[address] ress 01/23/2012 None hypertension Quality imp roving 01/23/2012 None hypertension Onset of Symptom during adulthood 01/23/2012 None hypertension Blood Pressure Values Stage 0:SBP 130-139 mmHg / DBP 85-89 mmHg 01/23/2012 None hypertension Severity mi ld 01/23/2012 None breast complaint Location in the left nipple 01/12/2012 None breast complaint Quality skin color change 01/12/2012 None breast complaint Quality pain 01/12/2012 pt describes it as discom fort and wears a kleenex in her bra [...] worsening 12/25/2011 None blood pressure followup Blood Pressu re Values pt checking blood pressure - see scanned document 12/25/2011 None blood pressure followup Blood Pressu re Values Stage 2:SBP 160-179 mmHg / DBP [...] 12/25/2011 None blood pressure followup Onset and Re solution ongoing 12/25/2011 None blood pressure followup Frequency of Episodes unchanged 12/25/2011 Non e blood pressure followup Alleviating Factor s medication 12/04/2011 None blood pressure followup Blood Pressu re Values not checking blood pressure at home 12/04/2011 None blood pressure followup Frequency of Episodes unchanged 12/04/2011 Non e blood pressure followup Onset and Re solution ongoing 12/04/2011 None blood pressure followup Onset [...] worsening 09/20/2011 None blood pressure followup Blood Pressu re Values pt checking blood pressure - see scanned document 09/20/2011 None blood pressure followup Blood Pressu re Values Stage 2:SBP 160-179 mmHg / DBP [...] Pertinent Findings obesity 09/20/2011 None hypertension Quality chr onic 09/06/2011 None hypertension Quality wor sening 09/06/2011 None anxiety Quality chronic 09/06/2011 None dysuria Quality chronic 09/06/2011 None dysuria Onset and Resolution ongoing. 09/06/2011 Thinks it's better but wa nts to make sure her UTI is gone. hypertension Onset and Resolution ongoing 09/06/2011 None hypertension Blood Pressure Values Stage 1:SBP 140-159 mmHg / DBP 90-99 mmHg 09/06/2011 None hypertension Frequency of Episodes increasing 09/06/[address] ress 09/06/2011 None anxiety Onset and Resolution ongoing 09/06/2011 None anxiety Onset of Symptom 2 years ago 09/06/2011 but worse over the past f ew months. anxiety Limitation on Activities does not limit activities 09/06/2011 None anxiety Frequency of Episodes increasing 09/06/2011 None anxiety Triggers stress 09/06/2011 None anxiety Triggers family discord 09/06/2011 None urinary frequency Onset and Resolution ongoing 08/30/2011 on augmentin, but causing stomach upset. cont to have some back pain hypertension Quality chr onic 08/30/2011 None hypertension Onset and Resolution ongoing 08/30/2011 None hypertension Onset of Symptom during adulthood 08/30/2011 None hypertension Blood Pressure Values patient checking blood pressure at home - did not bring in readings 08/30/2011 None hypertension Severity mi ld 08/30/[address] ress 08/30/2011 None urinary frequency Quality acute 08/30/2011 None urinary frequency Triggers activity 08/30/2011 Pt with UTI - thinks it m ay be due to intercourse cauging passing of [...] reflux Frequency of Episodes most meals 05/04/2011 gonzales s quit eating onions, cut back on lettuce, increased vegetables while taking nexium gastroesophageal reflux Alleviating Factor s medication 05/04/2011 She doesn't have problems when she takes nexium before meals abdominal pain Location in the epigastric area 05/04/2011 None abdominal pain Radiating the back 05/04/2011 None abdominal pain Location in the RLQ 05/04/2011 None abdominal pain Quality s harp 05/04/2011 not extremely sharp, occu rred once, she has a hernia in that area nasal allergies Location in both nares 05/04/2011 None nasal allergies Severity moderate 05/04/2011 None nasal allergies Triggers exposure to grass/pollens 05/04/2011 None nasal allergies Triggers season change 05/04/2011 None sinus pain Quality press ure 05/04/2011 None sinus pain Alleviating Factors medication 05/04/2011 benadryl sinus pain Severity mode rate 05/04/2011 None gastroesophageal reflux Exacerbating Factors medication 05/04/2011 pr ilosec did not work on the GERD abdominal [...] acid 04/19/2011 None gastroesophageal reflux Onset and Re solution ongoing 04/19/2011 None gastroesophageal reflux Quality chronic 04/19/2011 None gastroesophageal reflux Severity moderate 04/19/2011 None gastroesophageal reflux Frequency of Episodes daily 04/19/2011 None gastroesophageal reflux Diet includes spicy foods 04/19/2011 None gastroesophageal reflux Diet includes caffeine 04/19/2011 None gastroesophageal reflux Diet includes chocolate 04/19/2011 None gastroesophageal reflux Triggers meals 04/19/2011 None cough Quality acute 04/19/2011 None cough Quality productive 04/19/2011 None cough Onset of Symptom 3 -4 days ago 04/19/2011 None cough Onset and Resolution gradual in onset 04/19/2011 None cough Significant Medical Conditions asthma 04/19/2011 None fever Quality acute 04/19/2011 None fever Onset of Symptom 1 days ago 04/19/2011 None wheezing Location diffus ladonna 04/19/2011 None wheezing Quality acute 04/19/2011 None wheezing Onset and Resolution worse during the day 04/19/2011 None wheezing Onset of Symptom 3-4 days ago 04/19/2011 None wheezing Severity modera te 04/19/2011 None Instructions Comment . Obesity - chronic issue [...] Sutures removed today Influenza vaccine cefdinir - antibioti c twice daily x 2 weeks diflucan antifungal one time daily x 2 weeks use your sinus rinse at least twice each morning and evening . Acute Maxillary Sinusitis - if not imp roving - pt would like to see an ENT - [facility] in [place]. Treatment as follows: cefdinir - antibiotic twice [...] symptoms - refilled hydrocodone. . Hypertension - wel l controlled - continue with current medications, continue [...] discuss with her son who is a [employer] - and consider re-evaluation for nasal pillows with her cpap since she could not tolerate a face mask cpap in the past. Recommend diagnostic mammogram with ultrasound if needed Get supportive bra and make sure your breasts are well suppported. Recommend aleve twice daily and monitor symptoms. . Breast vltc-tcxh-jvbfjptir natural and expected course of this diagnosis and to alert me if symptoms do not follow expected course, or if any worse. Plan for diagnostic mammogram, in meantime, instructed patient to get more supportive bra, use anti-inflammatories and monitor symptoms. Patient verbalized understanding of plan. Overnight oxygen peyman dy . Sinusitis - Pt has acute infection [...] not show improvement. . Medicare Exam - to day we discussed the patients past history, immunizations, [...] has also been counseled that exercise is ne cessary - and of utmost importance as we [...] any other acute conerns. . Hypertension - wel l controlled - continue with current medications, continue [...] DOSING. . Hypertension - well controlled - shazia nue with current medications, continue with no added [...] to do home eval. Use your albuterol i nhaler 1-2 puffs every 4-6 hours as needed for cough/SOA. Call if your symptoms do not improve, or if any worse.. Txmhxxytb-Topsom-uqiscily not well controlled-KENALOG injection today in the office-use albuterol as needed. Instructed patient to continue with singulair daily and call if symptoms do not improve, or worsen. . ua performed - sen t for culture if indicated. . Hypertension - wel l controlled - continue with current medications, continue with no added salt diet. Pt has been encouraged to exercise daily. The pt has been advised to call the office if there are any acute concerns about change in blood pressure readings at home. Cellulitis - resolved . Hypertension - wel l controlled - continue with current medications, continue [...] Knee pain- DR FLANAGAN WILL CALL DR. NARVAEZ TO ASK ABOUT KNEE ASPIRATION. Esophageal Reflux [...] worsening redness, warmth, discharge. . Hypertension - wel l controlled - continue with current medications, continue [...] Allergies - kenalog shot today . URI-discussed expe cted course with the patient, pt advised to [...] heart rate to elevated. . Hypertension - unc ontrolled - the patient's medications have been modified [...] benefits of treament with the above medications. Eyxptpl-ddjmgcti-QG negative . Cerumen Impaction - The impacted [...] stabilized during the removal process. . Subungual discolor atiion of toenail- June 10 [address] is to see Dr[address] Bee - I have discussed the case with the pt and Dr. bee and she will likely have a biopsy of the digit and avulsion of the nail. . continue with jolly car 40mg, and increase her diltiazem to 240mg daily FLONASE 1 SPRAY EACH NARE DAILY PREDNISONE 20MG TWICE DAILY X 5 DAYS CALL SUNDAY IF NOT BETTER AND WE WILL SEND IN A PRESCRIPTION FOR ZITHROMAX . Sinusitis - Pt has acute infection - p ain in face, maxillary region, Pt informed to use decongestant, RX given to patient, sinus rinses also recommended. Call if symptoms do not show improvement. . Hypertension - unc ontrolled - the patient's medications have been modified [...] GET THE COMPRESSION SOCKS. . Hypertension - wel l controlled - continue with current medications, continue [...] to reduce peripheral edema. . Hypertension - wel l controlled - continue with current medications, continue [...] with the medication (lexapro). MIRALAX TO BE STARTE D AND TAKEN DAILY FOR CONSTIPATION.. Hypertension - [...] DAILY . Hypertension - well controlled - shazia nue with current medications, continue with no added salt diet. Pt has been encouraged to exercise daily. The pt has been advised to call the office if there are any acute concerns about change in blood pressure readings at home. Depression - INCREASE THE LEXAPRO TO 10MG DAILY Chronic pain - uncontrolled - START THE HYDROCODONE AT 1/2 PILL TWICE DAILY . Hypertension - wel l controlled - continue with current medications, continue [...] liver response to medications. . Hypertension - wel l controlled - continue with current medications, continue [...] verbalized understanding. . Edema - pt has bee n advised to elevate legs to prevent dependent [...] for knees and back. . Hypertension - wel l controlled - continue with current medications, continue [...] on meloxicam, monitor creatinine. . Hypertension - unc ontrolled - the patient's medications have been modified [...] call if symptoms acutely worsen. Appointment with alexa chiuogvidal-Dr. Luther For your pain, we have given [...] readings at home. Recommend follow up with director internal control for clearance before knee surgery. Will get patient appt with Dr. Luther Arthritis- occasionally uncontrolled symptoms- recommend pt to take antiinflammatory as directed for pain control. Use tylenol for break through pain symptoms. Will start butrans today per Dr. Urena recommendation and montior symptoms. Appt with Dr. Narvaez for possible knee replacement Edema - uncontrolled [...] . Esophageal Reflux - the patient has be en counseled against excessive intake of caffeine, spicy foods, peppermint, and cinnamon - all of which can exacerbate esophageal reflux. The patient is to take medications as prescribed and call the office if the symptoms are not improving. TAKE OMEPRAZOLE DAILY UTI-on cipro per Dr Almeida which is sensitive to bacteria Constipation-increase stool softener to QOD, daily if needed Edema-take lasix every day-follow up Sunday . HTN - continue wit h current medications - no change at this [...] change in current medications. . Hypertension - wel l controlled - continue with current medications, continue [...] discuss with her . . Hypertension - wel l controlled - continue with current medications, continue [...] for re-certification of oxygen. . Hypertension - wel l controlled - continue with current medications, continue with no added salt diet. Pt has been encouraged to exercise daily. The pt has been advised to call the office if there are any acute concerns about change in blood pressure readings at home. Dysuria - check UA . Allergies - chroni c - recommended pt to use allergy medication as prescribed. Pt has been counseled as the the appropriate use of the medication. Pt to call if allergy symptoms are not controlled with the medication. Kenalog injection today in the office. Thrush-RX for nystatin swish and swallow Recommend nasal sali ne rinse . Sinusitis - Pt has acute infection - p ain in face, maxillary region, Pt informed to use decongestant, RX given to patient, sinus rinses also recommended. Call if symptoms do not show improvement. Rocephin injection given in the offie today. Urinary Frequency-UA done today-shows positive nitrites-plan to send for culture-RX for levaquin also sent to patient's pharmacy. rocephin/kenalog start zpack today claritin get flonase otc -1 spray each nare daily . URI - Pt advised to increase fluids, v itamin C. Discussed natural and expected course of this diagnosis and need to alert me if symptoms do not follow expected course, or if any worse. RX sent to patient's pharmacy. . Mdxcv-xdaghwzeop-o tart zpack when finished with cipro- follow up chest xray on Sunday UTI-finish cipro and repeat UA Urge incontinence -P t has urge incontinence - the patient has [...] for knee pain and to see Dr. Narvaez for further treatment recommendations.. Hypertension - well [...] for knee pain and to see Dr. Narvaez for further treatment recommendations. PATIENT IS TO CHECK BLOOD PRESSURE AND HEART RATE AND BRING IN A RECORD OF THE READINGS INTO THE OFFICE IN 1 MONTH. . Hypertension - uncontrolled - the bessie ent's medications have been modified as documented in [...] of control. . URI - Pt advised t o increase fluids, vitamin C. Discussed natural and expected course of this diagnosis and need to alert me if symtpoms do not follow expected course, or if any worse. RX sent to patient's pharmacy. Start Norvasc (amlod ipine) 5mg daily Stop the clonidine. Take 1/2 [...] concerns. . Hypertension - uncontrolled - the bessie ent's medications have been modified as documented in [...] removal and biopsy of lesion. RECOMMEND SHINGLES V ACCINE . Medicare Exam - today we discussed [...] verbalized understanding of plan. . Hypertension - wel l controlled - continue with current medications, continue [...] symptoms - refilled hydrocodone. . Hypertension - wel l controlled - continue with current medications, continue [...] spray in the nasal steroid allergy spray. Comment . Wound Instructions - Pt was instruced to keep the wound clean, wash with antibacterial soap, use triple antibiotic ointment, call if redness, pustular drainage, or any other acute conerns. . continue with jolly car 40mg, and increase her diltiazem to 240mg daily . ua performed - sen t for culture if indicated. . Obesity - [...] worsening redness, warmth, discharge. . Hypertension - wel l controlled - continue with current medications, continue [...] discuss with her son who is a [employer] - and consider re-evaluation for nasal pillows with her cpap since she could not tolerate a face mask cpap in the past. . Hypertension - wel l controlled - continue with current medications, continue [...] twice daily and monitor symptoms. . Breast tkvm-cedl-vbfwlvxiz natural and expected course of this diagnosis and to alert me if symptoms do not follow expected course, or if any worse. Plan for diagnostic mammogram, in meantime, instructed patient to get more supportive bra, use anti-inflammatories and monitor symptoms. Patient verbalized understanding of plan. Overnight oxygen peyman dy . Sinusitis - Pt has acute infection [...] not show improvement. . Medicare Exam - to day we discussed the patients past history, immunizations, [...] has also been counseled that exercise is ne cessary - and of utmost importance as we age to help decrease fall risk and to maintain independence in the home. Today we discussed the need for the patient to create paperwork for Advanced directives as well as for the patient to provide this office with a copy of her DOPA paperwork for health care surrogate. . Cerumen Impaction - The impacted cerumen [...] during the removal process. . Hypertension - wel l controlled - continue with current medications, continue with no added salt diet. Pt has been encouraged to exercise daily. The pt has been advised to call the office if there are any acute concerns about change in blood pressure readings at home. 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 . Hypertension - well controlled - shazia nue with current medications, continue with no added [...] to do home eval. Use your albuterol i nhaler 1-2 puffs every 4-6 hours as needed for cough/SOA. Call if your symptoms do not improve, or if any worse.. Kozolnetp-Ffiywl-pvulbvvf not well controlled-KENALOG injection today in the office-use albuterol as needed. Instructed patient to continue with singulair daily and call if symptoms do not improve, or worsen. MIRALAX TO BE STARTE D AND TAKEN DAILY FOR CONSTIPATION.. Hypertension - [...] heart rate to elevated. . Hypertension - unc ontrolled - the patient's medications have been modified [...] improve or if they worsen. cefdinir - antibioti c twice daily x 2 weeks diflucan antifungal one time daily x 2 weeks use your sinus rinse at least twice each morning and evening . Acute Maxillary Sinusitis - if not imp roving - pt would like to see an ENT - [facility] in [place]. Treatment as follows: cefdinir - antibiotic twice [...] benefits of treament with the above medications. Gkviset-mdcyeati-SI negative . Hypertension - wel l controlled - continue with current medications, continue [...] or any other acute concerns. . URI-discussed expe cted course with the patient, pt advised to [...] given of nexium 40mg daily. . Subungual discolor atiion of toenail- June 10 pt is to [...] Sinusitis - Pt has acute infection - p ain in face, maxillary region, Pt informed to use decongestant, RX given to patient, sinus rinses also recommended. Call if symptoms do not show improvement. . Hypertension - wel l controlled - continue with current medications, continue [...] DAILY . Hypertension - well controlled - shazia nue with current medications, continue with no added salt diet. Pt has been encouraged to exercise daily. The pt has been advised to call the office if there are any acute concerns about change in blood pressure readings at home. Depression - INCREASE THE LEXAPRO TO 10MG DAILY Chronic pain - uncontrolled - START THE HYDROCODONE AT 1/2 PILL TWICE DAILY . Hypertension - wel l controlled - continue with current medications, continue [...] Knee pain- DR FLANAGAN WILL CALL DR. NARVAEZ TO ASK ABOUT KNEE ASPIRATION. Esophageal Reflux - the patient has been counseled against excessive intake of caffiene, spicy foods, peppermint, and cinnamon - all of which can exacerbate esophageal reflux. The patient is to take medications as prescribed and call the office if the symptoms are not improving. . Hypertension - wel l controlled - continue with current medications, continue [...] liver response to medications. . Hypertension - wel l controlled - continue with current medications, continue [...] verbalized understanding. . Edema - pt has bee n advised to elevate legs to prevent dependent [...] improved - sinusitis resolved. . Allergies - chroni c - recommended pt to use allergy medication as prescribed. Pt has been counseled as the the appropriate use of the medication. Pt to call if allergy symptoms are not controlled with the medication. Kenalog injection today in the office. Thrush-RX for nystatin swish and swallow . Hypertension - wel l controlled - continue with current medications, continue [...] further attempt to reduce peripheral edema. . Axxpn-nbbhjepvoy-i tart zpack when finished with cipro- follow up [...] for knees and back. . Hypertension - wel l controlled - continue with current medications, continue [...] monitor creatinine. . URI - Pt advised t o increase fluids, vitamin C. Discussed natural and expected course of this diagnosis and need to alert me if symtpoms do not follow expected course, or if any worse. RX sent to patient's pharmacy. . Hypertension - unc ontrolled - the patient's medications have been modified [...] GET THE COMPRESSION SOCKS. . Hypertension - wel l controlled - continue with current medications, continue [...] treatment with the medication (lexapro). RECOMMEND SHINGLES V ACCINE . Medicare Exam - today we discussed [...] and verbalized understanding of plan. Appointment with car diolfermin-Dr. Luther For your pain, we have given [...] readings at home. Recommend follow up with director internal control for clearance before knee surgery. Will get patient appt with Dr. Luther Arthritis- occasionally uncontrolled symptoms- recommend pt to take antiinflammatory as directed for pain control. Use tylenol for break through pain symptoms. Will start butrans today per Dr. Urena recommendation and montior symptoms. Appt with Dr. Narvaez for possible knee replacement Edema - uncontrolled [...] . Esophageal Reflux - the patient has be en counseled against excessive intake of caffeine, spicy foods, peppermint, and cinnamon - all of which can exacerbate esophageal reflux. The patient is to take medications as prescribed and call the office if the symptoms are not improving. TAKE OMEPRAZOLE DAILY UTI-on cipro per Dr Almeida which is sensitive to bacteria Constipation-increase stool softener to QOD, daily if needed Edema-take lasix every day-follow up Sunday . Hypertension - wel l controlled - continue with current medications, continue [...] discuss with her . . Hypertension - wel l controlled - continue with current medications, continue [...] spray in the nasal steroid allergy spray. Recommend nasal sali ne rinse . Sinusitis - Pt has acute infection - p ain in face, maxillary region, Pt informed to use decongestant, RX given to patient, sinus rinses also recommended. Call if symptoms do not show improvement. Rocephin injection given in the offie today. Urinary Frequency-UA done today-shows positive nitrites-plan to send for culture-RX for levaquin also sent to patient's pharmacy. Urge incontinence -P t has urge incontinence - the patient has [...] for knee pain and to see Dr. Narvaez for further treatment recommendations.. Hypertension - well [...] for knee pain and to see Dr. Narvaez for further treatment recommendations. PATIENT IS TO CHECK BLOOD PRESSURE AND HEART RATE AND BRING IN A RECORD OF THE READINGS INTO THE OFFICE IN 1 MONTH. . Hypertension - uncontrolled - the bessie ent's medications have been modified as documented in [...] on previous levels of control. Start Norvasc (amlod ipine) 5mg daily Stop the clonidine. Take 1/2 [...] concerns. . Hypertension - uncontrolled - the bessie ent's medications have been modified as documented in [...] and biopsy of lesion. . Hypertension - unc ontrolled - the patient's medications have been modified [...] if symptoms acutely worsen. . Hypertension - wel l controlled - continue with current medications, continue [...] - refilled hydrocodone. . HTN - continue wit h current medications - no change at this [...] change in current medications. . Hypertension - wel l controlled - continue with current medications, continue [...] [facility] for re-certification of oxygen. rocephin/kenalog start zpack today claritin get flonase otc -1 spray each nare daily . URI - Pt advised to increase fluids, v itamin C. Discussed natural and expected course of this diagnosis and need to alert me if symptoms do not follow expected course, or if any worse. RX sent to patient's pharmacy. Comment . URI-discussed expe cted course with the patient, pt advised to [...] not show improvement. . Medicare Exam - to day we discussed the patients past history, immunizations, [...] has also been counseled that exercise is ne cessary - and of utmost importance as we age to help decrease fall risk and to maintain independence in the home. Today we discussed the need for the patient to create paperwork for Advanced directives as well as for the patient to provide this office with a copy of her DOP[employer] paperwork for health care surrogate. . Hypertension - wel l controlled - continue with current medications, continue with no added salt diet. Pt has been encouraged to exercise daily. The pt has been advised to call the office if there are any acute concerns about change in blood pressure readings at home. 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 . Hypertension - well controlled - shazia nue with current medications, continue with no added [...] to do home eval. . Hypertension - unc ontrolled - the patient's medications have been modified [...] or if they worsen. Use your albuterol i nhaler 1-2 puffs every 4-6 hours as needed for cough/SOA. Call if your symptoms do not improve, or if any worse.. Ahuughkgc-Mawbrp-dbdvsmjb not well controlled-KENALOG injection today in the office-use albuterol as needed. Instructed patient to continue with singulair daily and call if symptoms do not improve, or worsen. . Wound Instructions - Pt was instruced to keep the wound clean, wash with antibacterial soap, use triple antibiotic ointment, call if redness, pustular drainage, or any other acute conerns. . continue with jolly car 40mg, and increase her diltiazem to 240mg daily . ua performed - sen t for culture if indicated. . Obesity - [...] worsening redness, warmth, discharge. . Hypertension - wel l controlled - continue with current medications, continue [...] discuss with her son who is a [employer] - and consider re-evaluation for nasal pillows with her cpap since she could not tolerate a face mask cpap in the past. . Hypertension - wel l controlled - continue with current medications, continue [...] - kenalog shot today . Hypertension - wel l controlled - continue with current medications, continue [...] twice daily and monitor symptoms. . Breast teyh-zxsu-zhnrfhwrx natural and expected course of this diagnosis and to alert me if symptoms do not follow expected course, or if any worse. Plan for diagnostic mammogram, in meantime, instructed patient to get more supportive bra, use anti-inflammatories and monitor symptoms. Patient verbalized understanding of plan. Overnight oxygen peyman dy . Sinusitis - Pt has acute infection [...] Nocturnal hypoxia-overnight oxygen study . Hypertension - wel l controlled - continue with current medications, continue [...] liver response to medications. . Hypertension - wel l controlled - continue with current medications, continue [...] benefits of treament with the above medications. Gmkovov-gvnsdctj-LR negative . Hypertension - well controlled - [...] for knees and back. . Hypertension - wel l controlled - continue with current medications, continue [...] or any other acute concerns. . Subungual discolor atiion of toenail- June 10 pt is to [...] Sinusitis - Pt has acute infection - p ain in face, maxillary region, Pt informed to use decongestant, RX given to patient, sinus rinses also recommended. Call if symptoms do not show improvement. RECOMMEND SHINGLES V ACCINE . Medicare Exam - today we discussed [...] and verbalized understanding of plan. cefdinir - antibioti c twice daily x 2 weeks diflucan antifungal one time daily x 2 weeks use your sinus rinse at least twice each morning and evening . Acute Maxillary Sinusitis - if not imp roving - pt would like to see an ENT - [facility] in [place]. Treatment as follows: cefdinir - antibiotic twice [...] symptoms - refilled hydrocodone. . Hypertension - unc ontrolled - the patient's medications have been modified [...] GET THE COMPRESSION SOCKS. . Hypertension - wel l controlled - continue with current medications, continue [...] to reduce peripheral edema. . Hypertension - wel l controlled - continue with current medications, continue [...] DAILY . Hypertension - well controlled - shazia nue with current medications, continue with no added salt diet. Pt has been encouraged to exercise daily. The pt has been advised to call the office if there are any acute concerns about change in blood pressure readings at home. Depression - INCREASE THE LEXAPRO TO 10MG DAILY Chronic pain - uncontrolled - START THE HYDROCODONE AT 1/2 PILL TWICE DAILY . Hypertension - wel l controlled - continue with current medications, continue [...] Knee pain- DR FLANAGAN WILL CALL DR. NARVAEZ TO ASK ABOUT KNEE ASPIRATION. Esophageal Reflux - the patient has been counseled against excessive intake of caffiene, spicy foods, peppermint, and cinnamon - all of which can exacerbate esophageal reflux. The patient is to take medications as prescribed and call the office if the symptoms are not improving. . Hypertension - wel l controlled - continue with current medications, continue with no added salt diet. Pt has been encouraged to exercise daily. The pt has been advised to call the office if there are any acute concerns about change in blood pressure readings at home. MIRALAX TO BE STARTE D AND TAKEN DAILY FOR CONSTIPATION.. Hypertension - [...] Patient and verbalized understanding. . Allergies - chroni c - recommended pt to use allergy medication as prescribed. Pt has been counseled as the the appropriate use of the medication. Pt to call if allergy symptoms are not controlled with the medication. Kenalog injection today in the office. Thrush-RX for nystatin swish and swallow . Hypertension - wel l controlled - continue with current medications, continue [...] monitor creatinine. . URI - Pt advised t o increase fluids, vitamin C. Discussed natural and expected course of this diagnosis and need to alert me if symtpoms do not follow expected course, or if any worse. RX sent to patient's pharmacy. Start Norvasc (amlod ipine) 5mg daily Stop the clonidine. Take 1/2 [...] concerns. . Hypertension - uncontrolled - the bessie ent's medications have been modified as documented in [...] and biopsy of lesion. . Hypertension - unc ontrolled - the patient's medications have been modified [...] call if symptoms acutely worsen. Appointment with car diology-Dr. Luther For your pain, we have given [...] readings at home. Recommend follow up with director internal control for clearance before knee surgery. Will get patient appt with Dr. Luther Arthritis- occasionally uncontrolled symptoms- recommend pt to take antiinflammatory as directed for pain control. Use tylenol for break through pain symptoms. Will start butrans today per Dr. Urena recommendation and montior symptoms. Appt with Dr. Narvaez for possible knee replacement Edema - uncontrolled [...] from toes to thighs. . Hypertension - wel l controlled - continue with current medications, continue [...] . Esophageal Reflux - the patient has be en counseled against excessive intake of caffeine, spicy foods, peppermint, and cinnamon - all of which can exacerbate esophageal reflux. The patient is to take medications as prescribed and call the office if the symptoms are not improving. TAKE OMEPRAZOLE DAILY UTI-on cipro per Dr Almeida which is sensitive to bacteria Constipation-increase stool softener to QOD, daily if needed Edema-take lasix every day-follow up Sunday . HTN - continue wit h current medications - no change at this [...] change in current medications. . Hypertension - wel l controlled - continue with current medications, continue [...] discuss with her . . Hypertension - wel l controlled - continue with current medications, continue [...] daytime fatigue improved-will fax today's note to [employer] for re-certification of oxygen. . Hypertension - wel l controlled - continue with current medications, continue [...] daytime fatigue improved-will fax today's note to [employer] for re-certification of oxygen. . Sinusitis - [...] in the nasal steroid allergy spray. . Edema - pt has bee n advised to elevate legs to prevent dependent [...] MONTH. . Hypertension - uncontrolled - the bessie ent's medications have been modified as documented in [...] on previous levels of control. Recommend nasal sali ne rinse . Sinusitis - Pt has acute infection - p ain in face, maxillary region, Pt informed to use decongestant, RX given to patient, sinus rinses also recommended. Call if symptoms do not show improvement. Rocephin injection given in the offie today. Urinary Frequency-UA done today-shows positive nitrites-plan to send for culture-RX for levaquin also sent to patient's pharmacy. rocephin/kenalog start zpack today claritin get flonase otc -1 spray each nare daily . URI - Pt advised to increase fluids, v itamin C. Discussed natural and expected course of this diagnosis and need to alert me if symptoms do not follow expected course, or if any worse. RX sent to patient's pharmacy. . Ftwqw-yzeuwcktgw-z tart zpack when finished with cipro- follow up chest xray on Sunday UTI-finish cipro and repeat UA Urge incontinence -P t has urge incontinence - the patient has [...] for knee pain and to see Dr. Narvaez for further treatment recommendations.. Hypertension - well [...] for knee pain and to see Dr. Narvaez for further treatment recommendations. Comment . Hypertension - wel l controlled - continue with current medications, continue [...] reduce peripheral edema. . ua performed - sen t for culture if indicated. . continue with jolly car 40mg, and increase her diltiazem to 240mg daily Use your albuterol i nhaler 1-2 puffs every 4-6 hours as needed for cough/SOA. Call if your symptoms do not improve, or if any worse.. Kkhlwwlmu-Ryehqd-kvnglwrx not well controlled-KENALOG injection today in the [...] Sutures removed today Influenza vaccine cefdinir - antibioti c twice daily x 2 weeks diflucan antifungal one time daily x 2 weeks use your sinus rinse at least twice each morning and evening . Acute Maxillary Sinusitis - if not imp roving - pt would like to see an ENT - [facility] in [place]. Treatment as follows: cefdinir - antibiotic twice [...] symptoms - refilled hydrocodone. . Hypertension - wel l controlled - continue with current medications, continue [...] twice daily and monitor symptoms. . Breast ycrl-wchv-xjrfuwnms natural and expected course of this diagnosis [...] during the removal process. MIRALAX TO BE STARTE D AND TAKEN DAILY FOR CONSTIPATION.. Hypertension - [...] to help soften stools. . Hypertension - wel l controlled - continue with current medications, continue [...] to reduce peripheral edema. . Hypertension - wel l controlled - continue with current medications, continue [...] Knee pain- DR FLANAGAN WILL CALL DR. NARVAEZ TO ASK ABOUT KNEE ASPIRATION. Esophageal Reflux - the patient has been counseled against excessive intake of caffiene, spicy foods, peppermint, and cinnamon - all of which can exacerbate esophageal reflux. The patient is to take medications as prescribed and call the office if the symptoms are not improving. . Hypertension - wel l controlled - continue with current medications, continue with no added salt diet. Pt has been encouraged to exercise daily. The pt has been advised to call the office if there are any acute concerns about change in blood pressure readings at home. 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 . Hypertension - well controlled - shazia nue with current medications, continue with no added [...] any other acute conerns. . Hypertension - unc ontrolled - the patient's medications have been modified [...] benefits of treament with the above medications. Cbsrqgx-dbtyljvl-WF negative . Cellulitis - start with generic Bactrim DS as directed, return to clinic as previously directed, call for acute change in symptoms, worsening redness, warmth, discharge. . Hypertension - wel l controlled - continue with current medications, continue with no added salt diet. Pt has been encouraged to exercise daily. The pt has been advised to call the office if there are any acute concerns about change in blood pressure readings at home. Dysuria - check UA . Hypertension - wel l controlled - continue with current medications, continue [...] discuss with her son who is a [employer] - and consider re-evaluation for nasal pillows with her cpap since she could not tolerate a face mask cpap in the past. . Wound Instructions - Pt was instructed to keep the wound clean, call if redness, pustular drainage, or any other acute concerns. . URI-discussed expe cted course with the patient, pt advised to [...] given of nexium 40mg daily. Overnight oxygen peyman dy . Sinusitis - Pt has acute infection [...] hypoxia-overnight oxygen study . Medicare Exam - to day we discussed the patients past history, immunizations, [...] has also been counseled that exercise is ne cessary - and of utmost importance as we age to help decrease fall risk and to maintain independence in the home. Today we discussed the need for the patient to create paperwork for Advanced directives as well as for the patient to provide this office with a copy of her DOP[employer] paperwork for health care surrogate. . Hypertension - unc ontrolled - the patient's medications have been modified [...] - GET THE COMPRESSION SOCKS. Start Norvasc (amlod ipine) 5mg daily Stop the clonidine. Take 1/2 [...] concerns. . Hypertension - uncontrolled - the bessie ent's medications have been modified as documented in [...] DAILY . Hypertension - well controlled - shazia nue with current medications, continue with no added salt diet. Pt has been encouraged to exercise daily. The pt has been advised to call the office if there are any acute concerns about change in blood pressure readings at home. Depression - INCREASE THE LEXAPRO TO 10MG DAILY Chronic pain - uncontrolled - START THE HYDROCODONE AT 1/2 PILL TWICE DAILY . Hypertension - wel l controlled - continue with current medications, continue [...] verbalized understanding. . Edema - pt has bee n advised to elevate legs to prevent dependent [...] pressure readings at home. . Allergies - chroni c - recommended pt to use allergy medication [...] for knees and back. . Hypertension - wel l controlled - continue with current medications, continue [...] Sinusitis - Pt has acute infection - p ain in face, maxillary region, Pt informed to use decongestant, RX given to patient, sinus rinses also recommended. Call if symptoms do not show improvement. . URI - Pt advised t o increase fluids, vitamin C. Discussed natural and expected course of this diagnosis and need to alert me if symtpoms do not follow expected course, or if any worse. RX sent to patient's pharmacy. . Hypertension - unc ontrolled - the patient's medications have been modified [...] if symptoms acutely worsen. . Hypertension - wel l controlled - continue with current medications, continue [...] treatment with the medication (lexapro). RECOMMEND SHINGLES V ACCINE . Medicare Exam - today we discussed [...] verbalized understanding of plan. . Hypertension - wel l controlled - continue with current medications, continue [...] supportive care at this time. Appointment with car diology-Dr. Luther For your pain, we have given [...] readings at home. Recommend follow up with director internal control for clearance before knee surgery. Will get patient appt with Dr. Luther Arthritis- occasionally uncontrolled symptoms- recommend pt to take antiinflammatory as directed for pain control. Use tylenol for break through pain symptoms. Will start butrans today per Dr. Urena recommendation and montior symptoms. Appt with Dr. Narvaez for possible knee replacement Edema - uncontrolled [...] . Esophageal Reflux - the patient has be en counseled against excessive intake of caffeine, spicy foods, peppermint, and cinnamon - all of which can exacerbate esophageal reflux. The patient is to take medications as prescribed and call the office if the symptoms are not improving. TAKE OMEPRAZOLE DAILY UTI-on cipro per Dr Almeida which is sensitive to bacteria Constipation-increase stool softener to QOD, daily if needed Edema-take lasix every day-follow up Sunday . HTN - continue wit h current medications - no change at this [...] change in current medications. . Hypertension - wel l controlled - continue with current medications, continue with no added salt diet. Pt has been encouraged to exercise daily. The pt has been advised to call the office if there are any acute concerns about change in blood pressure readings at home. . Hypertension - wel l controlled - continue with current medications, continue [...] discuss with her . . Hypertension - wel l controlled - continue with current medications, continue [...] improved-will fax today's note to [facility] for re-certification of oxygen. . Cough - [...] spray in the nasal steroid allergy spray. Recommend nasal sali ne rinse . Sinusitis - Pt has acute infection - p ain in face, maxillary region, Pt informed to use decongestant, RX given to patient, sinus rinses also recommended. Call if symptoms do not show improvement. Rocephin injection given in the offie today. Urinary Frequency-UA done today-shows positive nitrites-plan to send for culture-RX for levaquin also sent to patient's pharmacy. rocephin/kenalog start zpack today claritin get flonase otc -1 spray each nare daily . URI - Pt advised to increase fluids, v itamin C. Discussed natural and expected course of this diagnosis and need to alert me if symptoms do not follow expected course, or if any worse. RX sent to patient's pharmacy. . Subungual discolor atiion of toenail- June [address] Bee - I have discussed the case with the pt and Dr. bee and she will likely have a biopsy of the digit and avulsion of the nail. Urge incontinence -P t has urge incontinence - the patient has [...] for knee pain and to see Dr. Narvaez for further treatment recommendations.. Hypertension - well [...] for knee pain and to see Dr. Narvaez for further treatment recommendations. . Hypertension - wel l controlled - continue with current medications, continue [...] symptoms - refilled hydrocodone. . Hypertension - wel l controlled - continue with current medications, continue [...] - start on meloxicam, monitor creatinine. . Joghg-nvomcgirtb-c tart zpack when finished with cipro- follow up chest xray on Sunday UTI-finish cipro and repeat UA PATIENT IS TO CHECK BLOOD PRESSURE AND HEART RATE AND BRING IN A RECORD OF THE READINGS INTO THE OFFICE IN 1 MONTH. . Hypertension - uncontrolled - the bessie ent's medications have been modified as documented in [...] months based on previous levels of control. Comment DECREASE CRESTOR TO SUNDAY/SUNDAY/SUNDAY DOSING. . Hypertension - well controlled - shazia nue with current medications, continue with no added [...] to do home eval. Use your albuterol i nhaler 1-2 puffs every 4-6 hours as needed for cough/SOA. Call if your symptoms do not improve, or if any worse.. Wbyhlorjd-Xnkion-vyrsgejl not well controlled-KENALOG injection today in the office-use albuterol as needed. Instructed patient to continue with singulair daily and call if symptoms do not improve, or worsen. . Wound Instructions - Pt was instruced to keep the wound clean, wash with antibacterial soap, use triple antibiotic ointment, call if redness, pustular drainage, or any other acute conerns. . continue with jolly car 40mg, and increase her diltiazem to 240mg daily . ua performed - sen t for culture if indicated. . Obesity - [...] Sutures removed today Influenza vaccine cefdinir - antibioti c twice daily x 2 weeks diflucan antifungal one time daily x 2 weeks use your sinus rinse at least twice each morning and evening . Acute Maxillary Sinusitis - if not imp roving - pt would like to see an ENT - [facility] in [place]. Treatment as follows: cefdinir - antibiotic twice [...] symptoms - refilled hydrocodone. . Hypertension - wel l controlled - continue with current medications, continue [...] discuss with her son who is a [employer] - and consider re-evaluation for nasal pillows with her cpap since she could not tolerate a face mask cpap in the past. . Hypertension - wel l controlled - continue with current medications, continue [...] Allergies - kenalog shot today . URI-discussed expe cted course with the patient, pt advised to [...] given of nexium 40mg daily. Overnight oxygen peyman dy . Sinusitis - Pt has acute infection [...] not show improvement. . Medicare Exam - to day we discussed the patients past history, immunizations, [...] has also been counseled that exercise is ne cessary - and of utmost importance as we age to help decrease fall risk and to maintain independence in the home. Today we discussed the need for the patient to create paperwork for Advanced directives as well as for the patient to provide this office with a copy of her DOP[employer] paperwork for health care surrogate. . Hypertension - wel l controlled - continue with current medications, continue [...] during the removal process. . Hypertension - wel l controlled - continue with current medications, continue with no added salt diet. Pt has been encouraged to exercise daily. The pt has been advised to call the office if there are any acute concerns about change in blood pressure readings at home. Cellulitis - resolved . Hypertension - wel l controlled - continue with current medications, continue [...] Knee pain- DR FLANAGAN WILL CALL DR. NARVAEZ TO ASK ABOUT KNEE ASPIRATION. Esophageal Reflux - the patient has been counseled against excessive intake of caffiene, spicy foods, peppermint, and cinnamon - all of which can exacerbate esophageal reflux. The patient is to take medications as prescribed and call the office if the symptoms are not improving. MIRALAX TO BE STARTE D AND TAKEN DAILY FOR CONSTIPATION.. Hypertension - [...] heart rate to elevated. . Hypertension - unc ontrolled - the patient's medications have been modified [...] benefits of treament with the above medications. Lnvagdv-mvcrdjgc-NX negative . Hypertension - wel l controlled - continue with current medications, continue [...] or any other acute concerns. . Subungual discolor atiion of toenail- June 10 pt is to [...] Sinusitis - Pt has acute infection - p ain in face, maxillary region, Pt informed to use decongestant, RX given to patient, sinus rinses also recommended. Call if symptoms do not show improvement. Recommend diagnostic mammogram with ultrasound if needed Get supportive bra and make sure your breasts are well suppported. Recommend aleve twice daily and monitor symptoms. . Breast vaiw-adtc-jykazfdfz natural and expected course of this diagnosis and to alert me if symptoms do not follow expected course, or if any worse. Plan for diagnostic mammogram, in meantime, instructed patient to get more supportive bra, use anti-inflammatories and monitor symptoms. Patient verbalized understanding of plan. . Hypertension - unc ontrolled - the patient's medications have been modified [...] GET THE COMPRESSION SOCKS. . Hypertension - wel l controlled - continue with current medications, continue [...] to reduce peripheral edema. . Hypertension - wel l controlled - continue with current medications, continue [...] liver response to medications. . Hypertension - wel l controlled - continue with current medications, continue [...] verbalized understanding. . Edema - pt has bee n advised to elevate legs to prevent dependent [...] improved - sinusitis resolved. . Allergies - chroni c - recommended pt to use allergy medication [...] for knees and back. . Hypertension - wel l controlled - continue with current medications, continue [...] monitor creatinine. . URI - Pt advised t o increase fluids, vitamin C. Discussed natural and expected course of this diagnosis and need to alert me if symtpoms do not follow expected course, or if any worse. RX sent to patient's pharmacy. Start Norvasc (amlod ipine) 5mg daily Stop the clonidine. Take 1/2 [...] concerns. . Hypertension - uncontrolled - the bessie ent's medications have been modified as documented in [...] and biopsy of lesion. . Hypertension - unc ontrolled - the patient's medications have been modified [...] call if symptoms acutely worsen. RECOMMEND SHINGLES V ACCINE . Medicare Exam - today we discussed [...] verbalized understanding of plan. . Hypertension - wel l controlled - continue with current medications, continue [...] DAILY . Hypertension - well controlled - shazia nue with current medications, continue with no added salt diet. Pt has been encouraged to exercise daily. The pt has been advised to call the office if there are any acute concerns about change in blood pressure readings at home. Depression - INCREASE THE LEXAPRO TO 10MG DAILY Chronic pain - uncontrolled - START THE HYDROCODONE AT 1/2 PILL TWICE DAILY . Hypertension - wel l controlled - continue with current medications, continue [...] . Esophageal Reflux - the patient has be en counseled against excessive intake of caffeine, spicy foods, peppermint, and cinnamon - all of which can exacerbate esophageal reflux. The patient is to take medications as prescribed and call the office if the symptoms are not improving. TAKE OMEPRAZOLE DAILY UTI-on cipro per Dr Almeida which is sensitive to bacteria Constipation-increase stool softener to QOD, daily if needed Edema-take lasix every day-follow up Sunday . HTN - continue wit h current medications - no change at this [...] change in current medications. . Hypertension - wel l controlled - continue with current medications, continue [...] discuss with her . . Hypertension - wel l controlled - continue with current medications, continue [...] for re-certification of oxygen. . Hypertension - wel l controlled - continue with current medications, continue [...] spray in the nasal steroid allergy spray. Recommend nasal sali ne rinse . Sinusitis - Pt has acute infection - p ain in face, maxillary region, Pt informed to use decongestant, RX given to patient, sinus rinses also recommended. Call if symptoms do not show improvement. Rocephin injection given in the offie today. Urinary Frequency-UA done today-shows positive nitrites-plan to send for culture-RX for levaquin also sent to patient's pharmacy. rocephin/kenalog start zpack today claritin get flonase otc -1 spray each nare daily . URI - Pt advised to increase fluids, v itamin C. Discussed natural and expected course of this diagnosis and need to alert me if symptoms do not follow expected course, or if any worse. RX sent to patient's pharmacy. . Awsly-amvdxbalfk-a tart zpack when finished with cipro- follow up chest xray on Sunday UTI-finish cipro and repeat UA Urge incontinence -P t has urge incontinence - the patient has [...] for knee pain and to see Dr. Narvaez for further treatment recommendations.. Hypertension - well [...] for knee pain and to see Dr. Narvaez for further treatment recommendations. PATIENT IS TO CHECK BLOOD PRESSURE AND HEART RATE AND BRING IN A RECORD OF THE READINGS INTO THE OFFICE IN 1 MONTH. . Hypertension - uncontrolled - the bessie ent's medications have been modified as documented in [...] on previous levels of control. Appointment with car diology-Dr. Luther For your pain, we have given [...] readings at home. Recommend follow up with director internal control for clearance before knee surgery. Will get patient appt with Dr. Luther Arthritis- occasionally uncontrolled symptoms- recommend pt to take antiinflammatory as directed for pain control. Use tylenol for break through pain symptoms. Will start butrans today per Dr. Urena recommendation and montior symptoms. Appt with Dr. Narvaez for possible knee replacement Edema - uncontrolled [...] from toes to thighs. . Hypertension - wel l controlled - continue with current medications, continue [...] Chronic pain - symptoms - refilled hydrocodone. Comment . Hypertension - wel l controlled - continue with current medications, continue with no added salt diet. Pt has been encouraged to exercise daily. The pt has been advised to call the office if there are any acute concerns about change in blood pressure readings at home. 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 . Hypertension - well controlled - shazia nue with current medications, continue with no added [...] to do home eval. Use your albuterol i nhaler 1-2 puffs every 4-6 hours as needed for cough/SOA. Call if your symptoms do not improve, or if any worse.. Otgptjgaw-Ofjyjv-hzsimtvo not well controlled-KENALOG injection today in the office-use albuterol as needed. Instructed patient to continue with singulair daily and call if symptoms do not improve, or worsen. . Wound Instructions - Pt was instruced to keep the wound clean, wash with antibacterial soap, use triple antibiotic ointment, call if redness, pustular drainage, or any other acute conerns. . continue with jolly car 40mg, and increase her diltiazem to 240mg daily . ua performed - sen t for culture if indicated. . Obesity - [...] Sutures removed today Influenza vaccine cefdinir - antibioti c twice daily x 2 weeks diflucan antifungal one time daily x 2 weeks use your sinus rinse at least twice each morning and evening . Acute Maxillary Sinusitis - if not imp roving - pt would like to see an ENT - [facility] in [place]. Treatment as follows: cefdinir - antibiotic twice [...] worsening redness, warmth, discharge. . Hypertension - wel l controlled - continue with current medications, continue [...] discuss with her son who is a [employer] - and consider re-evaluation for nasal pillows with her cpap since she could not tolerate a face mask cpap in the past. . Hypertension - wel l controlled - continue with current medications, continue [...] Allergies - kenalog shot today . URI-discussed expe cted course with the patient, pt advised to [...] twice daily and monitor symptoms. . Breast wyll-ajgo-odacsemam natural and expected course of this diagnosis and to alert me if symptoms do not follow expected course, or if any worse. Plan for diagnostic mammogram, in meantime, instructed patient to get more supportive bra, use anti-inflammatories and monitor symptoms. Patient verbalized understanding of plan. Overnight oxygen peyman dy . Sinusitis - Pt has acute infection [...] not show improvement. . Medicare Exam - to day we discussed the patients past history, immunizations, [...] has also been counseled that exercise is ne cessary - and of utmost importance as we age to help decrease fall risk and to maintain independence in the home. Today we discussed the need for the patient to create paperwork for Advanced directives as well as for the patient to provide this office with a copy of her DOP[employer] paperwork for health care surrogate. . Hypertension - wel l controlled - continue with current medications, continue [...] during the removal process. . Hypertension - wel l controlled - continue with current medications, continue [...] Knee pain- DR FLANAGAN WILL CALL DR. NARVAEZ TO ASK ABOUT KNEE ASPIRATION. Esophageal Reflux - the patient has been counseled against excessive intake of caffiene, spicy foods, peppermint, and cinnamon - all of which can exacerbate esophageal reflux. The patient is to take medications as prescribed and call the office if the symptoms are not improving. MIRALAX TO BE STARTE D AND TAKEN DAILY FOR CONSTIPATION.. Hypertension - [...] heart rate to elevated. . Hypertension - unc ontrolled - the patient's medications have been modified [...] benefits of treament with the above medications. Jequjrx-gfkzdjvr-UI negative . Hypertension - wel l controlled - continue with current medications, continue [...] or any other acute concerns. . Subungual discolor atiion of toenail- June 10 pt is to [...] Sinusitis - Pt has acute infection - p ain in face, maxillary region, Pt informed to use decongestant, RX given to patient, sinus rinses also recommended. Call if symptoms do not show improvement. . Hypertension - unc ontrolled - the patient's medications have been modified [...] GET THE COMPRESSION SOCKS. . Hypertension - wel l controlled - continue with current medications, continue [...] to reduce peripheral edema. . Hypertension - wel l controlled - continue with current medications, continue [...] DAILY . Hypertension - well controlled - shazia nue with current medications, continue with no added [...] PILL TWICE DAILY . HTN - continue wit h current medications - no change at this [...] change in current medications. . Hypertension - wel l controlled - continue with current medications, continue [...] this time. . Edema - pt has bee n advised to elevate legs to prevent dependent [...] improved - sinusitis resolved. . Allergies - chroni c - recommended pt to use allergy medication [...] for knees and back. . Hypertension - wel l controlled - continue with current medications, continue [...] monitor creatinine. . URI - Pt advised t o increase fluids, vitamin C. Discussed natural and expected course of this diagnosis and need to alert me if symtpoms do not follow expected course, or if any worse. RX sent to patient's pharmacy. Start Norvasc (amlod ipine) 5mg daily Stop the clonidine. Take 1/2 [...] concerns. . Hypertension - uncontrolled - the bessie ent's medications have been modified as documented in [...] and biopsy of lesion. . Hypertension - unc ontrolled - the patient's medications have been modified [...] call if symptoms acutely worsen. RECOMMEND SHINGLES V ACCINE . Medicare Exam - today we discussed [...] and verbalized understanding of plan. Appointment with alexa mohamud-Dr. Luther For your pain, we have given [...] readings at home. Recommend follow up with director internal control for clearance before knee surgery. Will get patient appt with Dr. Luther Arthritis- occasionally uncontrolled symptoms- recommend pt to take antiinflammatory as directed for pain control. Use tylenol for break through pain symptoms. Will start butrans today per Dr. Urena recommendation and montior symptoms. Appt with Dr. Narvaez for possible knee replacement Edema - uncontrolled [...] from toes to thighs. . Hypertension - wel l controlled - continue with current medications, continue [...] . Esophageal Reflux - the patient has be en counseled against excessive intake of caffeine, spicy foods, peppermint, and cinnamon - all of which can exacerbate esophageal reflux. The patient is to take medications as prescribed and call the office if the symptoms are not improving. TAKE OMEPRAZOLE DAILY UTI-on cipro per Dr Almeida which is sensitive to bacteria Constipation-increase stool softener to QOD, daily if needed Edema-take lasix every day-follow up Sunday . Hypertension - wel l controlled - continue with current medications, continue [...] discuss with her . . Hypertension - wel l controlled - continue with current medications, continue [...] liver response to medications. . Hypertension - wel l controlled - continue with current medications, continue [...] worse. Patient and verbalized understanding. Recommend nasal sali ne rinse . Sinusitis - Pt has acute infection - p ain in face, maxillary region, Pt informed to use decongestant, RX given to patient, sinus rinses also recommended. Call if symptoms do not show improvement. Rocephin injection given in the offie today. Urinary Frequency-UA done today-shows positive nitrites-plan to send for culture-RX for levaquin also sent to patient's pharmacy. rocephin/kenalog start zpack today claritin get flonase otc -1 spray each nare daily . URI - Pt advised to increase fluids, v itamin C. Discussed natural and expected course of this diagnosis and need to alert me if symptoms do not follow expected course, or if any worse. RX sent to patient's pharmacy. . Rnfuz-xnrwvgaxdd-a tart zpack when finished with cipro- follow up chest xray on Sunday UTI-finish cipro and repeat UA Urge incontinence -P t has urge incontinence - the patient has [...] for knee pain and to see Dr. Narvaez for further treatment recommendations.. Hypertension - well [...] for knee pain and to see Dr. Narvaez for further treatment recommendations. PATIENT IS TO CHECK BLOOD PRESSURE AND HEART RATE AND BRING IN A RECORD OF THE READINGS INTO THE OFFICE IN 1 MONTH. . Hypertension - uncontrolled - the bessie ent's medications have been modified as documented in [...] previous levels of control. . Hypertension - wel l controlled - continue with current medications, continue [...] daytime fatigue improved-will fax today's note to [employer] for re-certification of oxygen. . Hypertension - wel l controlled - continue with current medications, continue [...] daytime fatigue improved-will fax today's note to [employer] for re-certification of oxygen. . Sinusitis - [...] spray in the nasal steroid allergy spray. Comment . Hypertension - wel l controlled - continue with current medications, continue [...] reduce peripheral edema. . Medicare Exam - to day we discussed the patients past history, immunizations, [...] has also been counseled that exercise is ne cessary - and of utmost importance as we [...] worsening redness, warmth, discharge. Use your albuterol i nhaler 1-2 puffs every 4-6 hours as needed for cough/SOA. Call if your symptoms do not improve, or if any worse.. Pjqlgmclz-Yeerxn-cjzhpooq not well controlled-KENALOG injection today in the office-use albuterol as needed. Instructed patient to continue with singulair daily and call if symptoms do not improve, or worsen. MIRALAX TO BE STARTE D AND TAKEN DAILY FOR CONSTIPATION.. Hypertension - [...] heart rate to elevated. . Hypertension - wel l controlled - continue with current medications, continue [...] any other acute conerns. . continue with jolly car 40mg, and increase her diltiazem to 240mg daily . ua performed - sen t for culture if indicated. FLONASE 1 SPRAY EACH NARE DAILY PREDNISONE 20MG TWICE DAILY X 5 DAYS CALL SUNDAY IF NOT BETTER AND WE WILL SEND IN A PRESCRIPTION FOR ZITHROMAX . Sinusitis - Pt has acute infection - p ain in face, maxillary region, Pt informed to [...] Sutures removed today Influenza vaccine cefdinir - antibioti c twice daily x 2 weeks diflucan antifungal one time daily x 2 weeks use your sinus rinse at least twice each morning and evening . Acute Maxillary Sinusitis - if not imp roving - pt would like to see an ENT - [facility] in [place]. Treatment as follows: cefdinir - antibiotic twice [...] symptoms - refilled hydrocodone. . Hypertension - wel l controlled - continue with current medications, continue [...] discuss with her son who is a [employer] - and consider re-evaluation for nasal pillows with her cpap since she could not tolerate a face mask cpap in the past. . Hypertension - wel l controlled - continue with current medications, continue [...] Allergies - kenalog shot today . URI-discussed expe cted course with the patient, pt advised to [...] twice daily and monitor symptoms. . Breast ckws-lwju-yzainshha natural and expected course of this diagnosis and to alert me if symptoms do not follow expected course, or if any worse. Plan for diagnostic mammogram, in meantime, instructed patient to get more supportive bra, use anti-inflammatories and monitor symptoms. Patient verbalized understanding of plan. Overnight oxygen peyman dy . Sinusitis - Pt has acute infection [...] Nocturnal hypoxia-overnight oxygen study . Hypertension - wel l controlled - continue with current medications, continue with no added salt diet. Pt has been encouraged to exercise daily. The pt has been advised to call the office if there are any acute concerns about change in blood pressure readings at home. . Cerumen Impaction - The impacted cerumen [...] benefits of treament with the above medications. Shvkukm-kmncftie-ME negative . Allergies - chroni c - recommended pt to use allergy medication as prescribed. Pt has been counseled as the the appropriate use of the medication. Pt to call if allergy symptoms are not controlled with the medication. Kenalog injection today in the office. Thrush-RX for nystatin swish and swallow . Hypertension - wel l controlled - continue with current medications, continue [...] to reduce peripheral edema. . Hypertension - unc ontrolled - the patient's medications have been modified [...] or if they worsen. . Hypertension - wel l controlled - continue with current medications, continue [...] Knee pain- DR FLANAGAN WILL CALL DR. NARVAEZ TO ASK ABOUT KNEE ASPIRATION. Esophageal Reflux - the patient has been counseled against excessive intake of caffiene, spicy foods, peppermint, and cinnamon - all of which can exacerbate esophageal reflux. The patient is to take medications as prescribed and call the office if the symptoms are not improving. . Hypertension - wel l controlled - continue with current medications, continue with no added salt diet. Pt has been encouraged to exercise daily. The pt has been advised to call the office if there are any acute concerns about change in blood pressure readings at home. Cellulitis - resolved . Hypertension - unc ontrolled - the patient's medications have been modified [...] DOSING. . Hypertension - well controlled - shazia nue with current medications, continue with no added [...] out to do home eval. . Subungual discolor atiion of toenail- June [address] Bee - I have discussed the case with the pt and Dr. bee and she will likely have a biopsy of the digit and avulsion of the nail. . Hypertension - unc ontrolled - the patient's medications have been modified [...] GET THE COMPRESSION SOCKS. . Hypertension - wel l controlled - continue with current medications, continue [...] DAILY . Hypertension - well controlled - shazia nue with current medications, continue with no added salt diet. Pt has been encouraged to exercise daily. The pt has been advised to call the office if there are any acute concerns about change in blood pressure readings at home. Depression - INCREASE THE LEXAPRO TO 10MG DAILY Chronic pain - uncontrolled - START THE HYDROCODONE AT 1/2 PILL TWICE DAILY . Hypertension - wel l controlled - continue with current medications, continue [...] care at this time. . Hypertension - wel l controlled - continue with current medications, continue [...] verbalized understanding. . Edema - pt has bee n advised to elevate legs to prevent dependent [...] for knees and back. . Hypertension - wel l controlled - continue with current medications, continue [...] monitor creatinine. . URI - Pt advised t o increase fluids, vitamin C. Discussed natural and expected course of this diagnosis and need to alert me if symtpoms do not follow expected course, or if any worse. RX sent to patient's pharmacy. Start Norvasc (amlod ipine) 5mg daily Stop the clonidine. Take 1/2 [...] concerns. . Hypertension - uncontrolled - the bessie ent's medications have been modified as documented in [...] removal and biopsy of lesion. RECOMMEND SHINGLES V ACCINE . Medicare Exam - today we discussed [...] and verbalized understanding of plan. Appointment with alexa mohamud-Dr. Luther For your pain, we have given [...] readings at home. Recommend follow up with director internal control for clearance before knee surgery. Will get patient appt with Dr. Luther Arthritis- occasionally uncontrolled symptoms- recommend pt to take antiinflammatory as directed for pain control. Use tylenol for break through pain symptoms. Will start butrans today per Dr. Urena recommendation and montior symptoms. Appt with Dr. Narvaez for possible knee replacement Edema - uncontrolled [...] from toes to thighs. . Hypertension - wel l controlled - continue with current medications, continue [...] . Esophageal Reflux - the patient has be en counseled against excessive intake of caffeine, spicy foods, peppermint, and cinnamon - all of which can exacerbate esophageal reflux. The patient is to take medications as prescribed and call the office if the symptoms are not improving. TAKE OMEPRAZOLE DAILY UTI-on cipro per Dr Almeida which is sensitive to bacteria Constipation-increase stool softener to QOD, daily if needed Edema-take lasix every day-follow up Sunday . HTN - continue wit h current medications - no change at this [...] change in current medications. . Hypertension - wel l controlled - continue with current medications, continue [...] discuss with her . . Hypertension - wel l controlled - continue with current medications, continue [...] fatigue improved-will fax today's note to [employer] for re-certification of oxygen. . Hypertension - wel l controlled - continue with current medications, continue [...] fatigue improved-will fax today's note to [employer] for re-certification of oxygen. . Sinusitis - [...] spray in the nasal steroid allergy spray. Recommend nasal sali ne rinse . Sinusitis - Pt has acute infection - p ain in face, maxillary region, Pt informed to use decongestant, RX given to patient, sinus rinses also recommended. Call if symptoms do not show improvement. Rocephin injection given in the offie today. Urinary Frequency-UA done today-shows positive nitrites-plan to send for culture-RX for levaquin also sent to patient's pharmacy. rocephin/kenalog start zpack today claritin get flonase otc -1 spray each nare daily . URI - Pt advised to increase fluids, v itamin C. Discussed natural and expected course of this diagnosis and need to alert me if symptoms do not follow expected course, or if any worse. RX sent to patient's pharmacy. . Xyceu-ntyjfzzwet-r tart zpack when finished with cipro- follow up chest xray on Sunday UTI-finish cipro and repeat UA . Cough - improved - sinusitis resolved. PATIENT IS TO CHECK BLOOD PRESSURE AND HEART RATE AND BRING IN A RECORD OF THE READINGS INTO THE OFFICE IN 1 MONTH. . Hypertension - uncontrolled - the bessie ent's medications have been modified as documented in [...] on previous levels of control. Urge incontinence -P t has urge incontinence - the patient has [...] for knee pain and to see Dr. Narvaez for further treatment recommendations.. Hypertension - well [...] for knee pain and to see Dr. Narvaez for further treatment recommendations. Comment . Sinusitis - Pt has acute [...] any other acute conerns. . Hypertension - wel l controlled - continue with current medications, continue with no added salt diet. Pt has been encouraged to exercise daily. The pt has been advised to call the office if there are any acute concerns about change in blood pressure readings at home. 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 . Hypertension - well controlled - shazia nue with current medications, continue with no added [...] to do home eval. Use your albuterol i nhaler 1-2 puffs every 4-6 hours as needed for cough/SOA. Call if your symptoms do not improve, or if any worse.. Fmcrobxvs-Pylsvw-mhasbamd not well controlled-KENALOG injection today in the office-use albuterol as needed. Instructed patient to continue with singulair daily and call if symptoms do not improve, or worsen. . continue with jolly car 40mg, and increase her diltiazem to 240mg daily . ua performed - sen t for culture if indicated. . Obesity - [...] Sutures removed today Influenza vaccine cefdinir - antibioti c twice daily x 2 weeks diflucan antifungal one time daily x 2 weeks use your sinus rinse at least twice each morning and evening . Acute Maxillary Sinusitis - if not imp roving - pt would like to see an ENT - [facility] in [place]. Treatment as follows: cefdinir - antibiotic twice [...] worsening redness, warmth, discharge. . Hypertension - wel l controlled - continue with current medications, continue [...] discuss with her son who is a [employer] - and consider re-evaluation for nasal pillows with her cpap since she could not tolerate a face mask cpap in the past. . Hypertension - wel l controlled - continue with current medications, continue [...] Allergies - kenalog shot today . URI-discussed expe cted course with the patient, pt advised to [...] twice daily and monitor symptoms. . Breast cjsa-xqbe-rspgwscdf natural and expected course of this diagnosis and to alert me if symptoms do not follow expected course, or if any worse. Plan for diagnostic mammogram, in meantime, instructed patient to get more supportive bra, use anti-inflammatories and monitor symptoms. Patient verbalized understanding of plan. Overnight oxygen peyman dy . Sinusitis - Pt has acute infection [...] hypoxia-overnight oxygen study . Medicare Exam - to day we discussed the patients past history, immunizations, [...] has also been counseled that exercise is ne cessary - and of utmost importance as we age to help decrease fall risk and to maintain independence in the home. Today we discussed the need for the patient to create paperwork for Advanced directives as well as for the patient to provide this office with a copy of her [employer] paperwork for health care surrogate. . Hypertension - wel l controlled - continue with current medications, continue [...] improved - sinusitis resolved. MIRALAX TO BE STARTE D AND TAKEN DAILY FOR CONSTIPATION.. Hypertension - [...] to help soften stools. . Hypertension - wel l controlled - continue with current medications, continue [...] Knee pain- DR FLANAGAN WILL CALL DR. NARVAEZ TO ASK ABOUT KNEE ASPIRATION. Esophageal Reflux [...] for knees and back. . Hypertension - unc ontrolled - the patient's medications have been modified [...] start on meloxicam, monitor creatinine. Start Norvasc (amlod ipine) 5mg daily Stop the clonidine. Take 1/2 [...] concerns. . Hypertension - uncontrolled - the bessie ent's medications have been modified as documented in [...] benefits of treament with the above medications. Cnxattf-kddlttnm-XI negative . Hypertension - wel l controlled - continue with current medications, continue [...] or any other acute concerns. . Subungual discolor atiion of toenail- June 10 pt is to [...] Sinusitis - Pt has acute infection - p ain in face, maxillary region, Pt informed to use decongestant, RX given to patient, sinus rinses also recommended. Call if symptoms do not show improvement. . Hypertension - unc ontrolled - the patient's medications have been modified [...] GET THE COMPRESSION SOCKS. . Hypertension - wel l controlled - continue with current medications, continue [...] to reduce peripheral edema. . Hypertension - wel l controlled - continue with current medications, continue [...] DAILY . Hypertension - well controlled - shazia nue with current medications, continue with no added salt diet. Pt has been encouraged to exercise daily. The pt has been advised to call the office if there are any acute concerns about change in blood pressure readings at home. Depression - INCREASE THE LEXAPRO TO 10MG DAILY Chronic pain - uncontrolled - START THE HYDROCODONE AT 1/2 PILL TWICE DAILY . Hypertension - wel l controlled - continue with current medications, continue [...] care at this time. . Hypertension - wel l controlled - continue with current medications, continue [...] MONTH. . Hypertension - uncontrolled - the bessie ent's medications have been modified as documented in [...] previous levels of control. . Hypertension - wel l controlled - continue with current medications, continue [...] verbalized understanding. . Edema - pt has bee n advised to elevate legs to prevent dependent [...] pressure readings at home. . Hypertension - wel l controlled - continue with current medications, continue [...] for Mikala. . URI - Pt advised t o increase fluids, vitamin C. Discussed natural and expected course of this diagnosis and need to alert me if symtpoms do not follow expected course, or if any worse. RX sent to patient's pharmacy. . Hypertension - unc ontrolled - the patient's medications have been modified [...] call if symptoms acutely worsen. RECOMMEND SHINGLES V ACCINE . Medicare Exam - today we discussed [...] and verbalized understanding of plan. Appointment with car diology-Dr. Luther For your pain, we have given [...] readings at home. Recommend follow up with director internal control for clearance before knee surgery. Will get patient appt with Dr. Luther Arthritis- occasionally uncontrolled symptoms- recommend pt to take antiinflammatory as directed for pain control. Use tylenol for break through pain symptoms. Will start butrans today per Dr. Urena recommendation and montior symptoms. Appt with Dr. Narvaez for possible knee replacement Edema - uncontrolled [...] from toes to thighs. . Hypertension - wel l controlled - continue with current medications, continue [...] . Esophageal Reflux - the patient has be en counseled against excessive intake of caffeine, spicy foods, peppermint, and cinnamon - all of which can exacerbate esophageal reflux. The patient is to take medications as prescribed and call the office if the symptoms are not improving. TAKE OMEPRAZOLE DAILY UTI-on cipro per Dr Almeida which is sensitive to bacteria Constipation-increase stool softener to QOD, daily if needed Edema-take lasix every day-follow up Sunday . HTN - continue wit h current medications - no change at this [...] change in current medications. . Hypertension - wel l controlled - continue with current medications, continue [...] discuss with her . . Hypertension - wel l controlled - continue with current medications, continue [...] daytime fatigue improved-will fax today's note to [employer] for re-certification of oxygen. . Hypertension - wel l controlled - continue with current medications, continue [...] daytime fatigue improved-will fax today's note to [employer] for re-certification of oxygen. . Sinusitis - [...] spray in the nasal steroid allergy spray. Recommend nasal sali ne rinse . Sinusitis - Pt has acute infection - p ain in face, maxillary region, Pt informed to use decongestant, RX given to patient, sinus rinses also recommended. Call if symptoms do not show improvement. Rocephin injection given in the offie today. Urinary Frequency-UA done today-shows positive nitrites-plan to send for culture-RX for levaquin also sent to patient's pharmacy. rocephin/kenalog start zpack today claritin get flonase otc -1 spray each nare daily . URI - Pt advised to increase fluids, v itamin C. Discussed natural and expected course of this diagnosis and need to alert me if symptoms do not follow expected course, or if any worse. RX sent to patient's pharmacy. . Jeoqx-odxidpjrgf-l tart zpack when finished with cipro- follow up chest xray on Sunday UTI-finish cipro and repeat UA Urge incontinence -P t has urge incontinence - the patient has [...] for knee pain and to see Dr. Narvaez for further treatment recommendations.. Hypertension - well [...] for knee pain and to see Dr. Narvaez for further treatment recommendations. . Allergies - chroni c - recommended pt to use allergy medication as prescribed. Pt has been counseled as the the appropriate use of the medication. Pt to call if allergy symptoms are not controlled with the medication. Kenalog injection today in the office. Thrush-RX for nystatin swish and swallow Comment . Hypertension - wel l controlled - continue with current medications, continue [...] drainage, or any other acute conerns. . Sinusitis - Pt has acute infection - pain in face, maxillary region, Pt informed to use decongestant, RX given to patient, sinus rinses also recommended. Call if symptoms do not show improvement. Overnight oxygen peyman dy . Sinusitis - Pt has acute infection [...] twice daily and monitor symptoms. . Breast pmne-qewp-jrauusoec natural and expected course of this diagnosis and to alert me if symptoms do not follow expected course, or if any worse. Plan for diagnostic mammogram, in meantime, instructed patient to get more supportive bra, use anti-inflammatories and monitor symptoms. Patient verbalized understanding of plan. . URI-discussed expe cted course with the patient, pt advised to [...] of nexium 40mg daily. . Hypertension - wel l controlled - continue with current medications, continue [...] - kenalog shot today . Hypertension - wel l controlled - continue with current medications, continue [...] discuss with her son who is a [employer] - and consider re-evaluation for nasal pillows [...] today Influenza vaccine . ua performed - sen t for culture if indicated. . continue with jolly car 40mg, and increase her diltiazem to 240mg daily Use your albuterol i nhaler 1-2 puffs every 4-6 hours as needed for cough/SOA. Call if your symptoms do not improve, or if any worse.. Ifwpefsvw-Yjoazr-xzcghtbj not well controlled-KENALOG injection today in the office-use albuterol as needed. Instructed patient to continue with singulair daily and call if symptoms do not improve, or worsen. 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 . Hypertension - well controlled - shazia nue with current medications, continue with no added [...] to do home eval. . Hypertension - wel l controlled - continue with current medications, continue with no added salt diet. Pt has been encouraged to exercise daily. The pt has been advised to call the office if there are any acute concerns about change in blood pressure readings at home. Cellulitis - resolved . Hypertension - wel l controlled - continue with current medications, continue [...] Knee pain- DR FLANAGAN WILL CALL DR. NARVAEZ TO ASK ABOUT KNEE ASPIRATION. Esophageal Reflux - the patient has been counseled against excessive intake of caffiene, spicy foods, peppermint, and cinnamon - all of which can exacerbate esophageal reflux. The patient is to take medications as prescribed and call the office if the symptoms are not improving. MIRALAX TO BE STARTE D AND TAKEN DAILY FOR CONSTIPATION.. Hypertension - [...] heart rate to elevated. . Hypertension - unc ontrolled - the patient's medications have been modified [...] benefits of treament with the above medications. Ciypejx-kqdpsdxq-NE negative . Hypertension - wel l controlled - continue with current medications, continue with no added salt diet. Pt has been encouraged to exercise daily. The pt has been advised to call the office if there are any acute concerns about change in blood pressure readings at home. Dysuria - check UA . Subungual discolor atiion of toenail- June 10 pt is to [...] Sinusitis - Pt has acute infection - p ain in face, maxillary region, Pt informed to use decongestant, RX given to patient, sinus rinses also recommended. Call if symptoms do not show improvement. . Hypertension - unc ontrolled - the patient's medications have been modified [...] GET THE COMPRESSION SOCKS. . Hypertension - wel l controlled - continue with current medications, continue [...] to reduce peripheral edema. . Hypertension - wel l controlled - continue with current medications, continue [...] DAILY . Hypertension - well controlled - shazia nue with current medications, continue with no added salt diet. Pt has been encouraged to exercise daily. The pt has been advised to call the office if there are any acute concerns about change in blood pressure readings at home. Depression - INCREASE THE LEXAPRO TO 10MG DAILY Chronic pain - uncontrolled - START THE HYDROCODONE AT 1/2 PILL TWICE DAILY . Hypertension - wel l controlled - continue with current medications, continue [...] verbalized understanding. . Edema - pt has bee n advised to elevate legs to prevent dependent [...] pressure readings at home. . Allergies - chroni c - recommended pt to use allergy medication as prescribed. Pt has been counseled as the the appropriate use of the medication. Pt to call if allergy symptoms are not controlled with the medication. Kenalog injection today in the office. Thrush-RX for nystatin swish and swallow . Hypertension - wel l controlled - continue with current medications, continue [...] monitor creatinine. . URI - Pt advised t o increase fluids, vitamin C. Discussed natural and expected course of this diagnosis and need to alert me if symtpoms do not follow expected course, or if any worse. RX sent to patient's pharmacy. Start Norvasc (amlod ipine) 5mg daily Stop the clonidine. Take 1/2 [...] concerns. . Hypertension - uncontrolled - the bessie ent's medications have been modified as documented in [...] and biopsy of lesion. . Hypertension - unc ontrolled - the patient's medications have been modified [...] call if symptoms acutely worsen. Appointment with car diology-Dr. Luther For your pain, we have given [...] readings at home. Recommend follow up with director internal control for clearance before knee surgery. Will get patient appt with Dr. Luther Arthritis- occasionally uncontrolled symptoms- recommend pt to take antiinflammatory as directed for pain control. Use tylenol for break through pain symptoms. Will start butrans today per Dr. Urena recommendation and montior symptoms. Appt with Dr. Narvaez for possible knee replacement Edema - uncontrolled [...] . Esophageal Reflux - the patient has be en counseled against excessive intake of caffeine, spicy foods, peppermint, and cinnamon - all of which can exacerbate esophageal reflux. The patient is to take medications as prescribed and call the office if the symptoms are not improving. TAKE OMEPRAZOLE DAILY UTI-on cipro per Dr Almeida which is sensitive to bacteria Constipation-increase stool softener to QOD, daily if needed Edema-take lasix every day-follow up Sunday . HTN - continue wit h current medications - no change at this [...] change in current medications. . Hypertension - wel l controlled - continue with current medications, continue [...] discuss with her . . Hypertension - wel l controlled - continue with current medications, continue [...] daytime fatigue improved-will fax today's note to [employer] for re-certification of oxygen. . Hypertension - wel l controlled - continue with current medications, continue [...] daytime fatigue improved-will fax today's note to [employer] for re-certification of oxygen. Recommend nasal sali ne rinse . Sinusitis - Pt has acute infection - p ain in face, maxillary region, Pt informed to use decongestant, RX given to patient, sinus rinses also recommended. Call if symptoms do not show improvement. Rocephin injection given in the offie today. Urinary Frequency-UA done today-shows positive nitrites-plan to send for culture-RX for levaquin also sent to patient's pharmacy. Urge incontinence -P t has urge incontinence - the patient has [...] for knee pain and to see Dr. Narvaez for further treatment recommendations.. Hypertension - well [...] for knee pain and to see Dr. Narvaez for further treatment recommendations. PATIENT IS TO CHECK BLOOD PRESSURE AND HEART RATE AND BRING IN A RECORD OF THE READINGS INTO THE OFFICE IN 1 MONTH. . Hypertension - uncontrolled - the bessie ent's medications have been modified as documented in [...] months based on previous levels of control. Comment . Hypertension - wel l controlled - continue with current medications, continue [...] drainage, or any other acute conerns. . Sinusitis - Pt has acute infection - pain in face, maxillary region, Pt informed to use decongestant, RX given to patient, sinus rinses also recommended. Call if symptoms do not show improvement. Overnight oxygen peyman dy . Sinusitis - Pt has acute infection [...] twice daily and monitor symptoms. . Breast okmf-ztio-iqxihjaji natural and expected course of this diagnosis and to alert me if symptoms do not follow expected course, or if any worse. Plan for diagnostic mammogram, in meantime, instructed patient to get more supportive bra, use anti-inflammatories and monitor symptoms. Patient verbalized understanding of plan. . URI-discussed expe cted course with the patient, pt advised to [...] of nexium 40mg daily. . Hypertension - wel l controlled - continue with current medications, continue [...] - kenalog shot today . Hypertension - wel l controlled - continue with current medications, continue [...] discuss with her son who is a [employer] - and consider re-evaluation for nasal pillows [...] today Influenza vaccine . ua performed - sen t for culture if indicated. . continue with jolly car 40mg, and increase her diltiazem to 240mg daily Use your albuterol i nhaler 1-2 puffs every 4-6 hours as needed for cough/SOA. Call if your symptoms do not improve, or if any worse.. Ldkedsdsb-Okjavl-zavzgqsj not well controlled-KENALOG injection today in the office-use albuterol as needed. Instructed patient to continue with singulair daily and call if symptoms do not improve, or worsen. 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 . Hypertension - well controlled - shazia nue with current medications, continue with no added [...] to do home eval. . Hypertension - wel l controlled - continue with current medications, continue with no added salt diet. Pt has been encouraged to exercise daily. The pt has been advised to call the office if there are any acute concerns about change in blood pressure readings at home. Cellulitis - resolved . Hypertension - wel l controlled - continue with current medications, continue [...] Knee pain- DR FLANAGAN WILL CALL DR. NARVAEZ TO ASK ABOUT KNEE ASPIRATION. Esophageal Reflux - the patient has been counseled against excessive intake of caffiene, spicy foods, peppermint, and cinnamon - all of which can exacerbate esophageal reflux. The patient is to take medications as prescribed and call the office if the symptoms are not improving. MIRALAX TO BE STARTE D AND TAKEN DAILY FOR CONSTIPATION.. Hypertension - [...] heart rate to elevated. . Hypertension - unc ontrolled - the patient's medications have been modified [...] benefits of treament with the above medications. Okgwope-lndkqxwz-BP negative . Hypertension - wel l controlled - continue with current medications, continue with no added salt diet. Pt has been encouraged to exercise daily. The pt has been advised to call the office if there are any acute concerns about change in blood pressure readings at home. Dysuria - check UA . Subungual discolor atiion of toenail- June 10 pt is to [...] Sinusitis - Pt has acute infection - p ain in face, maxillary region, Pt informed to use decongestant, RX given to patient, sinus rinses also recommended. Call if symptoms do not show improvement. . Hypertension - unc ontrolled - the patient's medications have been modified [...] GET THE COMPRESSION SOCKS. . Hypertension - wel l controlled - continue with current medications, continue [...] to reduce peripheral edema. . Hypertension - wel l controlled - continue with current medications, continue [...] DAILY . Hypertension - well controlled - shazia nue with current medications, continue with no added salt diet. Pt has been encouraged to exercise daily. The pt has been advised to call the office if there are any acute concerns about change in blood pressure readings at home. Depression - INCREASE THE LEXAPRO TO 10MG DAILY Chronic pain - uncontrolled - START THE HYDROCODONE AT 1/2 PILL TWICE DAILY . Hypertension - wel l controlled - continue with current medications, continue [...] verbalized understanding. . Edema - pt has bee n advised to elevate legs to prevent dependent [...] pressure readings at home. . Allergies - chroni c - recommended pt to use allergy medication as prescribed. Pt has been counseled as the the appropriate use of the medication. Pt to call if allergy symptoms are not controlled with the medication. Kenalog injection today in the office. Thrush-RX for nystatin swish and swallow . Hypertension - wel l controlled - continue with current medications, continue [...] monitor creatinine. . URI - Pt advised t o increase fluids, vitamin C. Discussed natural and expected course of this diagnosis and need to alert me if symtpoms do not follow expected course, or if any worse. RX sent to patient's pharmacy. Start Norvasc (amlod ipine) 5mg daily Stop the clonidine. Take 1/2 [...] concerns. . Hypertension - uncontrolled - the bessie ent's medications have been modified as documented in [...] and biopsy of lesion. . Hypertension - unc ontrolled - the patient's medications have been modified [...] call if symptoms acutely worsen. Appointment with alexa mohamud-Dr. Luther For your pain, we have given [...] readings at home. Recommend follow up with director internal control for clearance before knee surgery. Will get patient appt with Dr. Luther Arthritis- occasionally uncontrolled symptoms- recommend pt to take antiinflammatory as directed for pain control. Use tylenol for break through pain symptoms. Will start butrans today per Dr. Urena recommendation and montior symptoms. Appt with Dr. Narvaez for possible knee replacement Edema - uncontrolled [...] . Esophageal Reflux - the patient has be en counseled against excessive intake of caffeine, spicy foods, peppermint, and cinnamon - all of which can exacerbate esophageal reflux. The patient is to take medications as prescribed and call the office if the symptoms are not improving. TAKE OMEPRAZOLE DAILY UTI-on cipro per Dr Almeida which is sensitive to bacteria Constipation-increase stool softener to QOD, daily if needed Edema-take lasix every day-follow up Sunday . HTN - continue wit h current medications - no change at this [...] change in current medications. . Hypertension - wel l controlled - continue with current medications, continue [...] discuss with her . . Hypertension - wel l controlled - continue with current medications, continue [...] for re-certification of oxygen. . Hypertension - wel l controlled - continue with current medications, continue [...] daytime fatigue improved-will fax today's note to [employer] for re-certification of oxygen. Recommend nasal sali ne rinse . Sinusitis - Pt has acute infection - p ain in face, maxillary region, Pt informed to use decongestant, RX given to patient, sinus rinses also recommended. Call if symptoms do not show improvement. Rocephin injection given in the offie today. Urinary Frequency-UA done today-shows positive nitrites-plan to send for culture-RX for levaquin also sent to patient's pharmacy. . Mwwkl-cqcybotmgu-w tart zpack when finished with cipro- follow up chest xray on Sunday UTI-finish cipro and repeat UA Urge incontinence -P t has urge incontinence - the patient has [...] for knee pain and to see Dr. Narvaez for further treatment recommendations.. Hypertension - well [...] for knee pain and to see Dr. Narvaez for further treatment recommendations. PATIENT IS TO CHECK BLOOD PRESSURE AND HEART RATE AND BRING IN A RECORD OF THE READINGS INTO THE OFFICE IN 1 MONTH. . Hypertension - uncontrolled - the bessie ent's medications have been modified as documented in [...] months based on previous levels of control. Comment Use your albuterol i nhaler 1-2 puffs every 4-6 hours as needed for cough/SOA. Call if your symptoms do not improve, or if any worse.. Yszpstypl-Punuln-calbtfzz not well controlled-KENALOG injection today in the office-use albuterol as needed. Instructed patient to continue with singulair daily and call if symptoms do not improve, or worsen. . Hypertension - wel l controlled - continue with current medications, continue with no added salt diet. Pt has been encouraged to exercise daily. The pt has been advised to call the office if there are any acute concerns about change in blood pressure readings at home. Cellulitis - resolved . Wound Instructions - Pt was instruced to keep the wound clean, wash with antibacterial soap, use triple antibiotic ointment, call if redness, pustular drainage, or any other acute conerns. . continue with jolly car 40mg, and increase her diltiazem to 240mg daily . ua performed - vane rapp for culture if indicated. . Obesity - [...] conerns. Sutures removed today Influenza vaccine . Hypertension - wel l controlled - continue with current medications, continue [...] discuss with her son who is a [employer] - and consider re-evaluation for nasal pillows with her cpap since she could not tolerate a face mask cpap in the past. . Hypertension - wel l controlled - continue with current medications, continue [...] Allergies - kenalog shot today . URI-discussed expe cted course with the patient, pt advised to [...] twice daily and monitor symptoms. . Breast bwwj-wmcu-jnqzcojff natural and expected course of this diagnosis and to alert me if symptoms do not follow expected course, or if any worse. Plan for diagnostic mammogram, in meantime, instructed patient to get more supportive bra, use anti-inflammatories and monitor symptoms. Patient verbalized understanding of plan. Overnight oxygen peyman dy . Sinusitis - Pt has acute infection [...] do not show improvement. . Hypertension - wel l controlled - continue with current medications, continue [...] to reduce peripheral edema. . Hypertension - unc ontrolled - the patient's medications have been modified [...] heart rate to elevated. MIRALAX TO BE STARTE D AND TAKEN DAILY FOR CONSTIPATION.. Hypertension - [...] to help soften stools. . Hypertension - wel l controlled - continue with current medications, continue [...] Knee pain- DR FLANAGAN WILL CALL DR. NARVAEZ TO ASK ABOUT KNEE ASPIRATION. Esophageal Reflux - the patient has been counseled against excessive intake of caffiene, spicy foods, peppermint, and cinnamon - all of which can exacerbate esophageal reflux. The patient is to take medications as prescribed and call the office if the symptoms are not improving. 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 . Hypertension - well controlled - shazia nue with current medications, continue with no added [...] supplier come out to do home eval. Cymbalta 30mg daily Call with any side [...] benefits of treament with the above medications. Mkhrlnt-kygagsjv-AC negative . Hypertension - wel l controlled - continue with current medications, continue with no added salt diet. Pt has been encouraged to exercise daily. The pt has been advised to call the office if there are any acute concerns about change in blood pressure readings at home. Dysuria - check UA CONTINUE CIPRO OMEPRAZOLE DAILY TAKE YOUR LASIX DRINK ADEQUATE FLUIDS . Esophageal Reflux - the patient has be en counseled against excessive intake of caffeine, spicy foods, peppermint, and cinnamon - all of which can exacerbate esophageal reflux. The patient is to take medications as prescribed and call the office if the symptoms are not improving. TAKE OMEPRAZOLE DAILY UTI-on cipro per Dr Almeida which is sensitive to bacteria Constipation-increase stool softener to QOD, daily if needed Edema-take lasix every day-follow up Sunday . Cellulitis - start with generic Bactrim DS as directed, return to clinic as previously directed, call for acute change in symptoms, worsening redness, warmth, discharge. . Subungual discolor atiion of toenail- June 10 pt is to [...] Sinusitis - Pt has acute infection - p ain in face, maxillary region, Pt informed to use decongestant, RX given to patient, sinus rinses also recommended. Call if symptoms do not show improvement. . Hypertension - unc ontrolled - the patient's medications have been modified [...] GET THE COMPRESSION SOCKS. . Hypertension - wel l controlled - continue with current medications, continue [...] to reduce peripheral edema. . Hypertension - wel l controlled - continue with current medications, continue [...] DAILY . Hypertension - well controlled - shazia nue with current medications, continue with no added salt diet. Pt has been encouraged to exercise daily. The pt has been advised to call the office if there are any acute concerns about change in blood pressure readings at home. Depression - INCREASE THE LEXAPRO TO 10MG DAILY Chronic pain - uncontrolled - START THE HYDROCODONE AT 1/2 PILL TWICE DAILY . Ixmtd-rmtotffvcy-e tart zpack when finished with cipro- follow up chest xray on Sunday UTI-finish cipro and repeat UA . Allergies - chroni c - recommended pt to use allergy medication as prescribed. Pt has been counseled as the the appropriate use of the medication. Pt to call if allergy symptoms are not controlled with the medication. Kenalog injection today in the office. Thrush-RX for nystatin swish and swallow . Hypertension - wel l controlled - continue with current medications, continue [...] monitor creatinine. . URI - Pt advised t o increase fluids, vitamin C. Discussed natural and expected course of this diagnosis and need to alert me if symtpoms do not follow expected course, or if any worse. RX sent to patient's pharmacy. Start Norvasc (amlod ipine) 5mg daily Stop the clonidine. Take 1/2 [...] concerns. . Hypertension - uncontrolled - the bessie ent's medications have been modified as documented in [...] and biopsy of lesion. . Hypertension - unc ontrolled - the patient's medications have been modified [...] call if symptoms acutely worsen. Appointment with alexa mohamud-Dr. Luther For your pain, we have given [...] readings at home. Recommend follow up with director internal control for clearance before knee surgery. Will get patient appt with Dr. Luther Arthritis- occasionally uncontrolled symptoms- recommend pt to take antiinflammatory as directed for pain control. Use tylenol for break through pain symptoms. Will start butrans today per Dr. Urena recommendation and montior symptoms. Appt with Dr. Narvaez for possible knee replacement Edema - uncontrolled [...] compression socks from toes to thighs. . HTN - continue wit h current medications - no change at this [...] change in current medications. . Hypertension - wel l controlled - continue with current medications, continue [...] discuss with her . . Hypertension - wel l controlled - continue with current medications, continue [...] daytime fatigue improved-will fax today's note to [employer] for re-certification of oxygen. . Hypertension - wel l controlled - continue with current medications, continue [...] daytime fatigue improved-will fax today's note to [employer] for re-certification of oxygen. . Hypertension - wel l controlled - continue with current medications, continue with no added salt diet. Pt has been encouraged to exercise daily. The pt has been advised to call the office if there are any acute concerns about change in blood pressure readings at home. Recommend nasal sali ne rinse . Sinusitis - Pt has acute infection - p ain in face, maxillary region, Pt informed to use decongestant, RX given to patient, sinus rinses also recommended. Call if symptoms do not show improvement. Rocephin injection given in the offie today. Urinary Frequency-UA done today-shows positive nitrites-plan to send for culture-RX for levaquin also sent to patient's pharmacy. Continue warm moist compresses for the next several days. Keep clean and dry Call for fever, increased pain, or other concerns. . Labial cyst-discussed natural and expected course of this diagnosis and to alert me if symtpoms do not follow expected course, or if any worse. Patient and verbalized understanding. . Edema - pt has bee n advised to elevate legs to prevent dependent [...] change in blood pressure readings at home. Urge incontinence -P t has urge incontinence - the patient has [...] for knee pain and to see Dr. Narvaez for further treatment recommendations.. Hypertension - well [...] for knee pain and to see Dr. Narvaez for further treatment recommendations. PATIENT IS TO CHECK BLOOD PRESSURE AND HEART RATE AND BRING IN A RECORD OF THE READINGS INTO THE OFFICE IN 1 MONTH. . Hypertension - uncontrolled - the bessie ent's medications have been modified as documented in [...] months based on previous levels of control. Comment . Hypertension - wel l controlled - continue with current medications, continue [...] drainage, or any other acute conerns. . Sinusitis - Pt has acute infection - pain in face, maxillary region, Pt informed to use decongestant, RX given to patient, sinus rinses also recommended. Call if symptoms do not show improvement. Overnight oxygen peyman dy . Sinusitis - Pt has acute infection [...] twice daily and monitor symptoms. . Breast bniw-qwcb-zsdgwlves natural and expected course of this diagnosis and to alert me if symptoms do not follow expected course, or if any worse. Plan for diagnostic mammogram, in meantime, instructed patient to get more supportive bra, use anti-inflammatories and monitor symptoms. Patient verbalized understanding of plan. . URI-discussed expe cted course with the patient, pt advised to [...] of nexium 40mg daily. . Hypertension - wel l controlled - continue with current medications, continue [...] - kenalog shot today . Hypertension - wel l controlled - continue with current medications, continue [...] discuss with her son who is a [employer] - and consider re-evaluation for nasal pillows [...] today Influenza vaccine . ua performed - sen t for culture if indicated. . continue with jolly car 40mg, and increase her diltiazem to 240mg daily Use your albuterol i nhaler 1-2 puffs every 4-6 hours as needed for cough/SOA. Call if your symptoms do not improve, or if any worse.. Opkzivugd-Wrdrmp-rkugcxnt not well controlled-KENALOG injection today in the office-use albuterol as needed. Instructed patient to continue with singulair daily and call if symptoms do not improve, or worsen. 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 . Hypertension - well controlled - shazia nue with current medications, continue with no added [...] to do home eval. . Hypertension - wel l controlled - continue with current medications, continue with no added salt diet. Pt has been encouraged to exercise daily. The pt has been advised to call the office if there are any acute concerns about change in blood pressure readings at home. Cellulitis - resolved . Hypertension - wel l controlled - continue with current medications, continue [...] Knee pain- DR FLANAGAN WILL CALL DR. NARVAEZ TO ASK ABOUT KNEE ASPIRATION. Esophageal Reflux - the patient has been counseled against excessive intake of caffiene, spicy foods, peppermint, and cinnamon - all of which can exacerbate esophageal reflux. The patient is to take medications as prescribed and call the office if the symptoms are not improving. MIRALAX TO BE STARTE D AND TAKEN DAILY FOR CONSTIPATION.. Hypertension - [...] heart rate to elevated. . Hypertension - unc ontrolled - the patient's medications have been modified [...] benefits of treament with the above medications. Gigskoz-xxrtpqab-FO negative . Hypertension - wel l controlled - continue with current medications, continue with no added salt diet. Pt has been encouraged to exercise daily. The pt has been advised to call the office if there are any acute concerns about change in blood pressure readings at home. Dysuria - check UA . Subungual discolor atiion of toenail- June 10 pt is to [...] Sinusitis - Pt has acute infection - p ain in face, maxillary region, Pt informed to use decongestant, RX given to patient, sinus rinses also recommended. Call if symptoms do not show improvement. . Hypertension - unc ontrolled - the patient's medications have been modified [...] GET THE COMPRESSION SOCKS. . Hypertension - wel l controlled - continue with current medications, continue [...] to reduce peripheral edema. . Hypertension - wel l controlled - continue with current medications, continue [...] DAILY . Hypertension - well controlled - shazia nue with current medications, continue with no added salt diet. Pt has been encouraged to exercise daily. The pt has been advised to call the office if there are any acute concerns about change in blood pressure readings at home. Depression - INCREASE THE LEXAPRO TO 10MG DAILY Chronic pain - uncontrolled - START THE HYDROCODONE AT 1/2 PILL TWICE DAILY . Hypertension - wel l controlled - continue with current medications, continue [...] verbalized understanding. . Edema - pt has bee n advised to elevate legs to prevent dependent [...] pressure readings at home. . Allergies - chroni c - recommended pt to use allergy medication as prescribed. Pt has been counseled as the the appropriate use of the medication. Pt to call if allergy symptoms are not controlled with the medication. Kenalog injection today in the office. Thrush-RX for nystatin swish and swallow . Hypertension - wel l controlled - continue with current medications, continue [...] monitor creatinine. . URI - Pt advised t o increase fluids, vitamin C. Discussed natural and expected course of this diagnosis and need to alert me if symtpoms do not follow expected course, or if any worse. RX sent to patient's pharmacy. Start Norvasc (amlod ipine) 5mg daily Stop the clonidine. Take 1/2 [...] concerns. . Hypertension - uncontrolled - the bessie ent's medications have been modified as documented in [...] and biopsy of lesion. . Hypertension - unc ontrolled - the patient's medications have been modified [...] call if symptoms acutely worsen. Appointment with alexa mohamud-Dr. Luther For your pain, we have given [...] readings at home. Recommend follow up with director internal control for clearance before knee surgery. Will get patient appt with Dr. Luther Arthritis- occasionally uncontrolled symptoms- recommend pt to take antiinflammatory as directed for pain control. Use tylenol for break through pain symptoms. Will start butrans today per Dr. Urena recommendation and montior symptoms. Appt with Dr. Narvaez for possible knee replacement Edema - uncontrolled [...] . Esophageal Reflux - the patient has be en counseled against excessive intake of caffeine, spicy foods, peppermint, and cinnamon - all of which can exacerbate esophageal reflux. The patient is to take medications as prescribed and call the office if the symptoms are not improving. TAKE OMEPRAZOLE DAILY UTI-on cipro per Dr Almeida which is sensitive to bacteria Constipation-increase stool softener to QOD, daily if needed Edema-take lasix every day-follow up Sunday . HTN - continue wit h current medications - no change at this [...] change in current medications. . Hypertension - wel l controlled - continue with current medications, continue [...] discuss with her . . Hypertension - wel l controlled - continue with current medications, continue [...] daytime fatigue improved-will fax today's note to [employer] for re-certification of oxygen. . Hypertension - wel l controlled - continue with current medications, continue [...] daytime fatigue improved-will fax today's note to [employer] for re-certification of oxygen. Recommend nasal sali ne rinse . Sinusitis - Pt has acute infection - p ain in face, maxillary region, Pt informed to use decongestant, RX given to patient, sinus rinses also recommended. Call if symptoms do not show improvement. Rocephin injection given in the offie today. Urinary Frequency-UA done today-shows positive nitrites-plan to send for culture-RX for levaquin also sent to patient's pharmacy. . Cxfpd-ufniwftbnv-t tart zpack when finished with cipro- follow up chest xray on Sunday UTI-finish cipro and repeat UA Urge incontinence -P t has urge incontinence - the patient has [...] for knee pain and to see Dr. Narvaez for further treatment recommendations.. Hypertension - well [...] for knee pain and to see Dr. Narvaez for further treatment recommendations. PATIENT IS TO CHECK BLOOD PRESSURE AND HEART RATE AND BRING IN A RECORD OF THE READINGS INTO THE OFFICE IN 1 MONTH. . Hypertension - uncontrolled - the bessie ent's medications have been modified as documented in [...] months based on previous levels of control. Comment . Medicare Exam - to day we discussed the patients past history, immunizations, [...] has also been counseled that exercise is ne cessary - and of utmost importance as we [...] any other acute conerns. . Hypertension - wel l controlled - continue with current medications, continue [...] to further attempt to reduce peripheral edema. take a probiotic gracia bartlett on the antibiotic doxycycline - hold your multivitamin and your calcium while on the antibiotics start the prednisone on .. Sinusitis - Pt has acute infection - pain in face, maxillary region, Pt informed to use decongestant, RX given to patient, sinus rinses also recommended. Call if symptoms do not show improvement. Bronchitis - acute case of bronchitis identified. Pt has been given antibiotics and pt has been instructed to call if symptoms are not improved, or if symptoms acutely worsen. Sacroiliitis - back exercises discussed with the patient, pt to continue with anti-inflammatories. Pt is to call if the symptoms do not improve or if they worsen. Joint Injection - Pt was given post - injection instructions. The pt has been advised to use anti-inflammatories post injection today, ice to the injected site, call if redness, warmth, or increased pain occurs at the site of injection. kenalog shot in bilateral SI joints today . Cerumen Impaction - The impacted cerumen [...] during the removal process. . Hypertension - wel l controlled - continue with current medications, continue [...] Knee pain- DR FLANAGAN WILL CALL DR. NARVAEZ TO ASK ABOUT KNEE ASPIRATION. Esophageal Reflux - the patient has been counseled against excessive intake of caffiene, spicy foods, peppermint, and cinnamon - all of which can exacerbate esophageal reflux. The patient is to take medications as prescribed and call the office if the symptoms are not improving. . Hypertension - wel l controlled - continue with current medications, continue with no added salt diet. Pt has been encouraged to exercise daily. The pt has been advised to call the office if there are any acute concerns about change in blood pressure readings at home. 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 . Hypertension - well controlled - shazia nue with current medications, continue with no added [...] to do home eval. Use your albuterol i nhaler 1-2 puffs every 4-6 hours as needed for cough/SOA. Call if your symptoms do not improve, or if any worse.. Pwnpacumr-Ooxkcp-niuxusav not well controlled-KENALOG injection today in the office-use albuterol as needed. Instructed patient to continue with singulair daily and call if symptoms do not improve, or worsen. . continue with jolly car 40mg, and increase her diltiazem to 240mg daily . ua performed - sen t for culture if indicated. . Obesity - [...] Sutures removed today Influenza vaccine cefdinir - antibioti c twice daily x 2 weeks diflucan antifungal one time daily x 2 weeks use your sinus rinse at least twice each morning and evening . Acute Maxillary Sinusitis - if not imp roving - pt would like to see an ENT - [facility] in [place]. Treatment as follows: cefdinir - antibiotic twice [...] worsening redness, warmth, discharge. . Hypertension - wel l controlled - continue with current medications, continue [...] care at this time. . Hypertension - wel l controlled - continue with current medications, continue [...] discuss with her son who is a [employer] - and consider re-evaluation for nasal pillows with her cpap since she could not tolerate a face mask cpap in the past. . Hypertension - wel l controlled - continue with current medications, continue [...] Allergies - kenalog shot today . URI-discussed expe cted course with the patient, pt advised to [...] twice daily and monitor symptoms. . Breast zhzs-akjd-jqysfbvnf natural and expected course of this diagnosis and to alert me if symptoms do not follow expected course, or if any worse. Plan for diagnostic mammogram, in meantime, instructed patient to get more supportive bra, use anti-inflammatories and monitor symptoms. Patient verbalized understanding of plan. Overnight oxygen peyman dy . Sinusitis - Pt has acute infection [...] do not improve. Nocturnal hypoxia-overnight oxygen study MIRALAX TO BE STARTE D AND TAKEN DAILY FOR CONSTIPATION.. Hypertension - [...] heart rate to elevated. . Hypertension - unc ontrolled - the patient's medications have been modified [...] or if they worsen. . Hypertension - wel l controlled - continue with current medications, continue [...] or any other acute concerns. . Subungual discolor atiion of toenail- June 10 pt is to [...] Sinusitis - Pt has acute infection - p ain in face, maxillary region, Pt informed to use decongestant, RX given to patient, sinus rinses also recommended. Call if symptoms do not show improvement. . Hypertension - unc ontrolled - the patient's medications have been modified [...] GET THE COMPRESSION SOCKS. . Hypertension - wel l controlled - continue with current medications, continue [...] to reduce peripheral edema. . Hypertension - wel l controlled - continue with current medications, continue [...] DAILY . Hypertension - well controlled - shazia nue with current medications, continue with no added salt diet. Pt has been encouraged to exercise daily. The pt has been advised to call the office if there are any acute concerns about change in blood pressure readings at home. Depression - INCREASE THE LEXAPRO TO 10MG DAILY Chronic pain - uncontrolled - START THE HYDROCODONE AT 1/2 PILL TWICE DAILY . Hypertension - wel l controlled - continue with current medications, continue [...] discuss with her . . Hypertension - wel l controlled - continue with current medications, continue [...] liver response to medications. . Hypertension - wel l controlled - continue with current medications, continue [...] verbalized understanding. . Edema - pt has bee n advised to elevate legs to prevent dependent [...] improved - sinusitis resolved. . Allergies - chroni c - recommended pt to use allergy medication as prescribed. Pt has been counseled as the the appropriate use of the medication. Pt to call if allergy symptoms are not controlled with the medication. Kenalog injection today in the office. Thrush-RX for nystatin swish and swallow Urge incontinence -P t has urge incontinence - the patient has [...] for knee pain and to see Dr. Narvaez for further treatment recommendations.. Hypertension - well [...] for knee pain and to see Dr. Narvaez for further treatment recommendations. PATIENT IS TO CHECK BLOOD PRESSURE AND HEART RATE AND BRING IN A RECORD OF THE READINGS INTO THE OFFICE IN 1 MONTH. . Hypertension - uncontrolled - the bessie ent's medications have been modified as documented in [...] months based on previous levels of control. Cymbalta 30mg daily Call with any side [...] benefits of treament with the above medications. Smfkmbv-kzmustaa-RO negative . Hypertension - wel l controlled - continue with current medications, continue [...] monitor creatinine. . URI - Pt advised t o increase fluids, vitamin C. Discussed natural and expected course of this diagnosis and need to alert me if symtpoms do not follow expected course, or if any worse. RX sent to patient's pharmacy. Start Norvasc (amlod ipine) 5mg daily Stop the clonidine. Take 1/2 [...] concerns. . Hypertension - uncontrolled - the bessie ent's medications have been modified as documented in [...] and biopsy of lesion. . Hypertension - unc ontrolled - the patient's medications have been modified [...] call if symptoms acutely worsen. RECOMMEND SHINGLES V ACCINE . Medicare Exam - today we discussed [...] and verbalized understanding of plan. Appointment with [facility]-Dr. Luther For your pain, we have given [...] readings at home. Recommend follow up with director internal control for clearance before knee surgery. Will get patient appt with Dr. Luther Arthritis- occasionally uncontrolled symptoms- recommend pt to take antiinflammatory as directed for pain control. Use tylenol for break through pain symptoms. Will start butrans today per Dr. Urena recommendation and montior symptoms. Appt with Dr. Narvaez for possible knee replacement Edema - uncontrolled [...] from toes to thighs. . Hypertension - wel l controlled - continue with current medications, continue [...] . Esophageal Reflux - the patient has be en counseled against excessive intake of caffeine, spicy foods, peppermint, and cinnamon - all of which can exacerbate esophageal reflux. The patient is to take medications as prescribed and call the office if the symptoms are not improving. TAKE OMEPRAZOLE DAILY UTI-on cipro per Dr Almeida which is sensitive to bacteria Constipation-increase stool softener to QOD, daily if needed Edema-take lasix every day-follow up Sunday . HTN - continue wit h current medications - no change at this [...] change in current medications. . Hypertension - wel l controlled - continue with current medications, continue [...] for re-certification of oxygen. . Hypertension - wel l controlled - continue with current medications, continue [...] spray in the nasal steroid allergy spray. Recommend nasal sali ne rinse . Sinusitis - Pt has acute infection - p ain in face, maxillary region, Pt informed to use decongestant, RX given to patient, sinus rinses also recommended. Call if symptoms do not show improvement. Rocephin injection given in the offie today. Urinary Frequency-UA done today-shows positive nitrites-plan to send for culture-RX for levaquin also sent to patient's pharmacy. rocephin/kenalog start zpack today claritin get flonase otc -1 spray each nare daily . URI - Pt advised to increase fluids, v itamin C. Discussed natural and expected course of this diagnosis and need to alert me if symptoms do not follow expected course, or if any worse. RX sent to patient's pharmacy. . Xiwrw-icubyvtiil-c tart zpack when finished with cipro- follow up [...] with surya randall for knees and back. Comment . URI-discussed expe cted course with the patient, pt advised to [...] twice daily and monitor symptoms. . Breast oqyo-ogwu-ftsarhqgb natural and expected course of this diagnosis and to alert me if symptoms do not follow expected course, or if any worse. Plan for diagnostic mammogram, in meantime, instructed patient to get more supportive bra, use anti-inflammatories and monitor symptoms. Patient verbalized understanding of plan. Overnight oxygen peyman dy . Sinusitis - Pt has acute infection [...] not show improvement. . Medicare Exam - to day we discussed the patients past history, immunizations, [...] has also been counseled that exercise is ne cessary - and of utmost importance as we [...] any other acute conerns. . Hypertension - wel l controlled - continue with current medications, continue [...] to further attempt to reduce peripheral edema. take a probiotic whi le on the antibiotic doxycycline - hold your multivitamin and your calcium while on the antibiotics start the prednisone on .. Sinusitis - Pt has acute infection - pain in face, maxillary region, Pt informed to use decongestant, RX given to patient, sinus rinses also recommended. Call if symptoms do not show improvement. Bronchitis - acute case of bronchitis identified. Pt has been given antibiotics and pt has been instructed to call if symptoms are not improved, or if symptoms acutely worsen. Sacroiliitis - back exercises discussed with the patient, pt to continue with anti-inflammatories. Pt is to call if the symptoms do not improve or if they worsen. Joint Injection - Pt was given post - injection instructions. The pt has been advised to use anti-inflammatories post injection today, ice to the injected site, call if redness, warmth, or increased pain occurs at the site of injection. kenalog shot in bilateral SI joints today . Cerumen Impaction - The impacted cerumen [...] keeping patient stabilized during the removal process. Use your albuterol i nhaler 1-2 puffs every 4-6 hours as needed for cough/SOA. Call if your symptoms do not improve, or if any worse.. Fwhlubsur-Rosptc-qzrysphe not well controlled-KENALOG injection today in the office-use albuterol as needed. Instructed patient to continue with singulair daily and call if symptoms do not improve, or worsen. . continue with jolly car 40mg, and increase her diltiazem to 240mg daily . ua performed - sen t for culture if indicated. . Obesity - [...] Sutures removed today Influenza vaccine cefdinir - antibioti c twice daily x 2 weeks diflucan antifungal one time daily x 2 weeks use your sinus rinse at least twice each morning and evening . Acute Maxillary Sinusitis - if not imp roving - pt would like to see an ENT - [facility] in [place]. Treatment as follows: cefdinir - antibiotic twice [...] worsening redness, warmth, discharge. . Hypertension - wel l controlled - continue with current medications, continue [...] discuss with her son who is a [employer] - and consider re-evaluation for nasal pillows with her cpap since she could not tolerate a face mask cpap in the past. . Hypertension - wel l controlled - continue with current medications, continue [...] of over-medication. Allergies - kenalog shot today DECREASE CRESTOR TO SUNDAY/SUNDAY/SUNDAY DOSING. . Hypertension - well controlled - shazia nue with current medications, continue with no added [...] to do home eval. . Hypertension - wel l controlled - continue with current medications, continue with no added salt diet. Pt has been encouraged to exercise daily. The pt has been advised to call the office if there are any acute concerns about change in blood pressure readings at home. Cellulitis - resolved . Hypertension - wel l controlled - continue with current medications, continue [...] Knee pain- DR FLANAGAN WILL CALL DR. NARVAEZ TO ASK ABOUT KNEE ASPIRATION. Esophageal Reflux - the patient has been counseled against excessive intake of caffiene, spicy foods, peppermint, and cinnamon - all of which can exacerbate esophageal reflux. The patient is to take medications as prescribed and call the office if the symptoms are not improving. MIRALAX TO BE STARTE D AND TAKEN DAILY FOR CONSTIPATION.. Hypertension - [...] heart rate to elevated. . Hypertension - unc ontrolled - the patient's medications have been modified [...] benefits of treament with the above medications. Tnhkqqb-uklkyqpi-VH negative . Subungual discolor atiion of toenail- June 10 pt is to [...] Sinusitis - Pt has acute infection - p ain in face, maxillary region, Pt informed to use decongestant, RX given to patient, sinus rinses also recommended. Call if symptoms do not show improvement. . Hypertension - unc ontrolled - the patient's medications have been modified [...] GET THE COMPRESSION SOCKS. . Hypertension - wel l controlled - continue with current medications, continue [...] to reduce peripheral edema. . Hypertension - wel l controlled - continue with current medications, continue [...] DAILY . Hypertension - well controlled - shazia nue with current medications, continue with no added salt diet. Pt has been encouraged to exercise daily. The pt has been advised to call the office if there are any acute concerns about change in blood pressure readings at home. Depression - INCREASE THE LEXAPRO TO 10MG DAILY Chronic pain - uncontrolled - START THE HYDROCODONE AT 1/2 PILL TWICE DAILY . Hypertension - wel l controlled - continue with current medications, continue [...] care at this time. . Hypertension - wel l controlled - continue with current medications, continue with no added salt diet. Pt has been encouraged to exercise daily. The pt has been advised to call the office if there are any acute concerns about change in blood pressure readings at home. . Hypertension - wel l controlled - continue with current medications, continue [...] verbalized understanding. . Edema - pt has bee n advised to elevate legs to prevent dependent [...] improved - sinusitis resolved. . Allergies - chroni c - recommended pt to use allergy medication as prescribed. Pt has been counseled as the the appropriate use of the medication. Pt to call if allergy symptoms are not controlled with the medication. Kenalog injection today in the office. Thrush-RX for nystatin swish and swallow . Hypertension - wel l controlled - continue with current medications, continue [...] for knees and back. . Hypertension - wel l controlled - continue with current medications, continue [...] monitor creatinine. . URI - Pt advised t o increase fluids, vitamin C. Discussed natural and expected course of this diagnosis and need to alert me if symtpoms do not follow expected course, or if any worse. RX sent to patient's pharmacy. Start Norvasc (amlod ipine) 5mg daily Stop the clonidine. Take 1/2 [...] concerns. . Hypertension - uncontrolled - the bessie ent's medications have been modified as documented in [...] and biopsy of lesion. . Hypertension - unc ontrolled - the patient's medications have been modified [...] call if symptoms acutely worsen. RECOMMEND SHINGLES V ACCINE . Medicare Exam - today we discussed [...] and verbalized understanding of plan. Appointment with [facility]-Dr. Luther For your pain, we have given [...] readings at home. Recommend follow up with director internal control for clearance before knee surgery. Will get patient appt with Dr. Luther Arthritis- occasionally uncontrolled symptoms- recommend pt to take antiinflammatory as directed for pain control. Use tylenol for break through pain symptoms. Will start butrans today per Dr. Urena recommendation and montior symptoms. Appt with Dr. Narvaez for possible knee replacement Edema - uncontrolled [...] from toes to thighs. . Hypertension - wel l controlled - continue with current medications, continue [...] . Esophageal Reflux - the patient has be en counseled against excessive intake of caffeine, spicy foods, peppermint, and cinnamon - all of which can exacerbate esophageal reflux. The patient is to take medications as prescribed and call the office if the symptoms are not improving. TAKE OMEPRAZOLE DAILY UTI-on cipro per Dr Almeida which is sensitive to bacteria Constipation-increase stool softener to QOD, daily if needed Edema-take lasix every day-follow up Sunday . HTN - continue wit h current medications - no change at this [...] change in current medications. . Hypertension - wel l controlled - continue with current medications, continue [...] discuss with her . . Hypertension - wel l controlled - continue with current medications, continue [...] fatigue improved-will fax today's note to [employer] for re-certification of oxygen. . Hypertension - wel l controlled - continue with current medications, continue [...] fatigue improved-will fax today's note to [employer] for re-certification of oxygen. . Sinusitis - [...] spray in the nasal steroid allergy spray. Recommend nasal sali ne rinse . Sinusitis - Pt has acute infection - p ain in face, maxillary region, Pt informed to use decongestant, RX given to patient, sinus rinses also recommended. Call if symptoms do not show improvement. Rocephin injection given in the offie today. Urinary Frequency-UA done today-shows positive nitrites-plan to send for culture-RX for levaquin also sent to patient's pharmacy. rocephin/kenalog start zpack today claritin get flonase otc -1 spray each nare daily . URI - Pt advised to increase fluids, v itamin C. Discussed natural and expected course of this diagnosis and need to alert me if symptoms do not follow expected course, or if any worse. RX sent to patient's pharmacy. . Moniv-llpmskiyqp-d tart zpack when finished with cipro- follow up chest xray on Sunday UTI-finish cipro and repeat UA Urge incontinence -P t has urge incontinence - the patient has [...] for knee pain and to see Dr. Narvaez for further treatment recommendations.. Hypertension - well [...] for knee pain and to see Dr. Narvaez for further treatment recommendations. PATIENT IS TO CHECK BLOOD PRESSURE AND HEART RATE AND BRING IN A RECORD OF THE READINGS INTO THE OFFICE IN 1 MONTH. . Hypertension - uncontrolled - the bessie ent's medications have been modified as documented in [...] months based on previous levels of control. Comment . Sinusitis - Pt has acute infection - pain in face, maxillary region, Pt informed to use decongestant, RX given to patient, sinus rinses also recommended. Call if symptoms do not show improvement. . Hypertension - wel l controlled - continue with current medications, continue [...] - kenalog shot today . Hypertension - wel l controlled - continue with current medications, continue [...] discuss with her son who is a [employer] - and consider re-evaluation for nasal pillows with her cpap since she could not tolerate a face mask cpap in the past. . Obesity - chronic issue with this [...] conerns. Sutures removed today Influenza vaccine . Hypertension - wel l controlled - continue with current medications, continue [...] Knee pain- DR FLANAGAN WILL CALL DR. NARVAEZ TO ASK ABOUT KNEE ASPIRATION. Esophageal Reflux - the patient has been counseled against excessive intake of caffiene, spicy foods, peppermint, and cinnamon - all of which can exacerbate esophageal reflux. The patient is to take medications as prescribed and call the office if the symptoms are not improving. 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 . Hypertension - well controlled - shazia nue with current medications, continue with no added [...] to do home eval. Use your albuterol i nhaler 1-2 puffs every 4-6 hours as needed for cough/SOA. Call if your symptoms do not improve, or if any worse.. Jgnmughrj-Dnjbvq-mjxdzkpu not well controlled-KENALOG injection today in the office-use albuterol as needed. Instructed patient to continue with singulair daily and call if symptoms do not improve, or worsen. . Wound Instructions - Pt was instruced to keep the wound clean, wash with antibacterial soap, use triple antibiotic ointment, call if redness, pustular drainage, or any other acute conerns. . continue with jolly car 40mg, and increase her diltiazem to 240mg daily . ua performed - vane rapp for culture if indicated. cefdinir - antibioti c twice daily x 2 weeks diflucan antifungal one time daily x 2 weeks use your sinus rinse at least twice each morning and evening . Acute Maxillary Sinusitis - if not imp roving - pt would like to see an ENT - [facility] in [place]. Treatment as follows: cefdinir - antibiotic twice [...] in symptoms, worsening redness, warmth, discharge. . Subungual discolor atiion of toenail- June 10 pt is to [...] Sinusitis - Pt has acute infection - p ain in face, maxillary region, Pt informed to use decongestant, RX given to patient, sinus rinses also recommended. Call if symptoms do not show improvement. . Hypertension - unc ontrolled - the patient's medications have been modified [...] EDEMA - GET THE COMPRESSION SOCKS. . URI-discussed expe cted course with the patient, pt advised to [...] twice daily and monitor symptoms. . Breast ojqn-kbsg-hcjbripea natural and expected course of this diagnosis and to alert me if symptoms do not follow expected course, or if any worse. Plan for diagnostic mammogram, in meantime, instructed patient to get more supportive bra, use anti-inflammatories and monitor symptoms. Patient verbalized understanding of plan. Overnight oxygen peyman dy . Sinusitis - Pt has acute infection [...] hypoxia-overnight oxygen study . Medicare Exam - to day we discussed the patients past history, immunizations, [...] has also been counseled that exercise is ne cessary - and of utmost importance as we age to help decrease fall risk and to maintain independence in the home. Today we discussed the need for the patient to create paperwork for Advanced directives as well as for the patient to provide this office with a copy of her [employer]OP[employer] paperwork for health care surrogate. . Hypertension - wel l controlled - continue with current medications, continue [...] liver response to medications. . Hypertension - wel l controlled - continue with current medications, continue [...] further attempt to reduce peripheral edema. . Cough - improved - sinusitis resolved. take a probiotic whi le on the antibiotic doxycycline - hold your multivitamin and your calcium while on the antibiotics start the prednisone on .. Sinusitis - Pt has acute infection - pain in face, maxillary region, Pt informed to use decongestant, RX given to patient, sinus rinses also recommended. Call if symptoms do not show improvement. Bronchitis - acute case of bronchitis identified. Pt has been given antibiotics and pt has been instructed to call if symptoms are not improved, or if symptoms acutely worsen. Sacroiliitis - back exercises discussed with the patient, pt to continue with anti-inflammatories. Pt is to call if the symptoms do not improve or if they worsen. Joint Injection - Pt was given post - injection instructions. The pt has been advised to use anti-inflammatories post injection today, ice to the injected site, call if redness, warmth, or increased pain occurs at the site of injection. kenalog shot in bilateral SI joints today . Cerumen Impaction - The impacted cerumen [...] heart rate to elevated. MIRALAX TO BE STARTE D AND TAKEN DAILY FOR CONSTIPATION.. Hypertension - [...] to help soften stools. . Hypertension - wel l controlled - continue with current medications, continue with no added salt diet. Pt has been encouraged to exercise daily. The pt has been advised to call the office if there are any acute concerns about change in blood pressure readings at home. Cellulitis - resolved . Hypertension - per home reports, her [...] on meloxicam, monitor creatinine. . Hypertension - unc ontrolled - the patient's medications have been modified [...] benefits of treament with the above medications. Hucnxom-pmtrbbnw-[place] negative RECOMMEND SHINGLES V ACCINE . Medicare Exam - today we discussed [...] verbalized understanding of plan. . Hypertension - wel l controlled - continue with current medications, continue with no added salt diet. Pt has been encouraged to exercise daily. The pt has been advised to call the office if there are any acute concerns about change in blood pressure readings at home. Dysuria - check UA . Hypertension - wel l controlled - continue with current medications, continue [...] . Esophageal Reflux - the patient has be en counseled against excessive intake of caffeine, spicy foods, peppermint, and cinnamon - all of which can exacerbate esophageal reflux. The patient is to take medications as prescribed and call the office if the symptoms are not improving. TAKE OMEPRAZOLE DAILY UTI-on cipro per Dr Almeida which is sensitive to bacteria Constipation-increase stool softener to QOD, daily if needed Edema-take lasix every day-follow up Sunday . HTN - continue wit h current medications - no change at this [...] exposure. No change in current medications. . Cellulitis, hemato ma - The patient was instructed in appropriate wound care. The patient was instructed to use the antibiotic as per RX. The patient is to call for any change in symptoms, increase in size of the lesion, increase in pain, worsening redness, warmth, discharge. . Wound Instructions - Pt was instructed to keep the wound clean, call if redness, pustular drainage, or any other acute concerns. . Hypertension - wel l controlled - continue with current medications, continue [...] further attempt to reduce peripheral edema. . Sinusitis - Pt has acute infection [...] nasal steroid allergy spray. . Hypertension - wel l controlled - continue with current medications, continue [...] DAILY . Hypertension - well controlled - shazia nue with current medications, continue with no added salt diet. Pt has been encouraged to exercise daily. The pt has been advised to call the office if there are any acute concerns about change in blood pressure readings at home. Depression - INCREASE THE LEXAPRO TO 10MG DAILY Chronic pain - uncontrolled - START THE HYDROCODONE AT 1/2 PILL TWICE DAILY . Hypertension - wel l controlled - continue with current medications, continue [...] pain - supportive care at this time. rocephin/kenalog start zpack today claritin get flonase otc -1 spray each nare daily . URI - Pt advised to increase fluids, v itamin C. Discussed natural and expected course of this diagnosis and need to alert me if symptoms do not follow expected course, or if any worse. RX sent to patient's pharmacy. . Hypertension - wel l controlled - continue with current medications, continue [...] verbalized understanding. . Edema - pt has bee n advised to elevate legs to prevent dependent [...] for knees and back. . Hypertension - wel l controlled - continue with current medications, continue [...] for Mikala. . URI - Pt advised t o increase fluids, vitamin C. Discussed natural and expected course of this diagnosis and need to alert me if symtpoms do not follow expected course, or if any worse. RX sent to patient's pharmacy. Start Norvasc (amlod ipine) 5mg daily Stop the clonidine. Take 1/2 [...] concerns. . Hypertension - uncontrolled - the bessie ent's medications have been modified as documented in [...] and biopsy of lesion. . Hypertension - unc ontrolled - the patient's medications have been modified [...] call if symptoms acutely worsen. Appointment with car diology-Dr. Luther For your pain, we have given [...] readings at home. Recommend follow up with director internal control for clearance before knee surgery. Will get patient appt with Dr. Luther Arthritis- occasionally uncontrolled symptoms- recommend pt to take antiinflammatory as directed for pain control. Use tylenol for break through pain symptoms. Will start butrans today per Dr. Urena recommendation and montior symptoms. Appt with Dr. Narvaez for possible knee replacement Edema - uncontrolled [...] from toes to thighs. . Hypertension - wel l controlled - continue with current medications, continue [...] discuss with her . . Hypertension - lynne l controlled - continue with current medications, continue [...] for re-certification of oxygen. . Hypertension - lynne l controlled - continue with current medications, continue [...] improved-will fax today's note to [facility] [employer] for re-certification of oxygen. Recommend nasal sali ne rinse . Sinusitis - Pt has acute infection - p ain in face, maxillary region, Pt informed to use decongestant, RX given to patient, sinus rinses also recommended. Call if symptoms do not show improvement. Rocephin injection given in the offie today. Urinary Frequency-UA done today-shows positive nitrites-plan to send for culture-RX for levaquin also sent to patient's pharmacy. . Zhcbk-guacuuzism-s tart zpack when finished with cipro- follow up chest xray on Sunday UTI-finish cipro and repeat UA Urge incontinence -P t has urge incontinence - the patient has [...] for knee pain and to see Dr. Narvaez for further treatment recommendations.. Hypertension - well [...] for knee pain and to see Dr. Narvaez for further treatment recommendations. PATIENT IS TO CHECK BLOOD PRESSURE AND HEART RATE AND BRING IN A RECORD OF THE READINGS INTO THE OFFICE IN 1 MONTH. . Hypertension - uncontrolled - the bessie ent's medications have been modified as documented in [...] based on previous levels of control. . Allergies - chroni c - recommended pt to use allergy medication as prescribed. Pt has been counseled as the the appropriate use of the medication. Pt to call if allergy symptoms are not controlled with the medication. Kenalog injection today in the office. Thrush-RX for nystatin swish and swallow Comment . Cerumen Impaction - The impacted cerumen [...] keeping patient stabilized during the removal process. take a probiotic whi le on the antibiotic doxycycline - hold your multivitamin and your calcium while on the antibiotics start the prednisone on .. Sinusitis - Pt has acute infection - pain in face, maxillary region, Pt informed to use decongestant, RX given to patient, sinus rinses also recommended. Call if symptoms do not show improvement. Bronchitis - acute case of bronchitis identified. Pt has been given antibiotics and pt has been instructed to call if symptoms are not improved, or if symptoms acutely worsen. Sacroiliitis - back exercises discussed with the patient, pt to continue with anti-inflammatories. Pt is to call if the symptoms do not improve or if they worsen. Joint Injection - Pt was given post - injection instructions. The pt has been advised to use anti-inflammatories post injection today, ice to the injected site, call if redness, warmth, or increased pain occurs at the site of injection. kenalog shot in bilateral SI joints today . Hypertension - wel l controlled - continue with current medications, continue [...] other acute conerns. . Medicare Exam - to day we discussed the patients past history, immunizations, [...] has also been counseled that exercise is ne cessary - and of utmost importance as we [...] symptoms do not show improvement. Overnight oxygen peyman dy . Sinusitis - Pt has acute infection [...] twice daily and monitor symptoms. . Breast dqyl-cfbu-zyetqebaj natural and expected course of this diagnosis and to alert me if symptoms do not follow expected course, or if any worse. Plan for diagnostic mammogram, in meantime, instructed patient to get more supportive bra, use anti-inflammatories and monitor symptoms. Patient verbalized understanding of plan. . URI-discussed expe cted course with the patient, pt advised to [...] of nexium 40mg daily. . Hypertension - wel l controlled - continue with current medications, continue [...] - kenalog shot today . Hypertension - wel l controlled - continue with current medications, continue [...] discuss with her son who is a [employer] - and consider re-evaluation for nasal pillows with her cpap since she could not tolerate a face mask cpap in the past. . Cellulitis - start with generic Bactrim DS as directed, return to clinic as previously directed, call for acute change in symptoms, worsening redness, warmth, discharge. cefdinir - antibioti c twice daily x 2 weeks diflucan antifungal one time daily x 2 weeks use your sinus rinse at least twice each morning and evening . Acute Maxillary Sinusitis - if not imp roving - pt would like to see an ENT - [facility] in [place]. Treatment as follows: cefdinir - antibiotic twice [...] today Influenza vaccine . ua performed - sen t for culture if indicated. . continue with jolly car 40mg, and increase her diltiazem to 240mg daily Use your albuterol i nhaler 1-2 puffs every 4-6 hours as needed for cough/SOA. Call if your symptoms do not improve, or if any worse.. Xsxzddkcz-Hbodtj-yejluodb not well controlled-KENALOG injection today in the office-use albuterol as needed. Instructed patient to continue with singulair daily and call if symptoms do not improve, or worsen. 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 . Hypertension - well controlled - shazia nue with current medications, continue with no added [...] to do home eval. . Hypertension - wel l controlled - continue with current medications, continue with no added salt diet. Pt has been encouraged to exercise daily. The pt has been advised to call the office if there are any acute concerns about change in blood pressure readings at home. Cellulitis - resolved . Hypertension - wel l controlled - continue with current medications, continue [...] Knee pain- DR FLANAGAN WILL CALL DR. NARVAEZ TO ASK ABOUT KNEE ASPIRATION. Esophageal Reflux - the patient has been counseled against excessive intake of caffiene, spicy foods, peppermint, and cinnamon - all of which can exacerbate esophageal reflux. The patient is to take medications as prescribed and call the office if the symptoms are not improving. MIRALAX TO BE STARTE D AND TAKEN DAILY FOR CONSTIPATION.. Hypertension - [...] heart rate to elevated. . Hypertension - unc ontrolled - the patient's medications have been modified [...] benefits of treament with the above medications. Slnlwpe-nhswmbkx-XF negative . Hypertension - wel l controlled - continue with current medications, continue with no added salt diet. Pt has been encouraged to exercise daily. The pt has been advised to call the office if there are any acute concerns about change in blood pressure readings at home. Dysuria - check UA . Cellulitis, hemato ma - The patient was instructed in appropriate wound care. The patient was instructed to use the antibiotic as per RX. The patient is to call for any change in symptoms, increase in size of the lesion, increase in pain, worsening redness, warmth, discharge. . Wound Instructions - Pt was instructed to keep the wound clean, call if redness, pustular drainage, or any other acute concerns. . Subungual discolor atiion of toenail- June 10 pt is to [...] Sinusitis - Pt has acute infection - p ain in face, maxillary region, Pt informed to use decongestant, RX given to patient, sinus rinses also recommended. Call if symptoms do not show improvement. . Hypertension - unc ontrolled - the patient's medications have been modified [...] GET THE COMPRESSION SOCKS. . Hypertension - wel l controlled - continue with current medications, continue [...] to reduce peripheral edema. . Hypertension - wel l controlled - continue with current medications, continue [...] DAILY . Hypertension - well controlled - shazia nue with current medications, continue with no added salt diet. Pt has been encouraged to exercise daily. The pt has been advised to call the office if there are any acute concerns about change in blood pressure readings at home. Depression - INCREASE THE LEXAPRO TO 10MG DAILY Chronic pain - uncontrolled - START THE HYDROCODONE AT 1/2 PILL TWICE DAILY . Hypertension - wel l controlled - continue with current medications, continue [...] care at this time. . Hypertension - wel l controlled - continue with current medications, continue with no added salt diet. Pt has been encouraged to exercise daily. The pt has been advised to call the office if there are any acute concerns about change in blood pressure readings at home. . Hypertension - wel l controlled - continue with current medications, continue [...] verbalized understanding. . Edema - pt has bee n advised to elevate legs to prevent dependent [...] improved - sinusitis resolved. . Allergies - chroni c - recommended pt to use allergy medication [...] for knees and back. . Hypertension - wel l controlled - continue with current medications, continue [...] monitor creatinine. . URI - Pt advised t o increase fluids, vitamin C. Discussed natural and expected course of this diagnosis and need to alert me if symtpoms do not follow expected course, or if any worse. RX sent to patient's pharmacy. Start Norvasc (amlod ipine) 5mg daily Stop the clonidine. Take 1/2 [...] concerns. . Hypertension - uncontrolled - the bessie ent's medications have been modified as documented in [...] and biopsy of lesion. . Hypertension - unc ontrolled - the patient's medications have been modified [...] call if symptoms acutely worsen. RECOMMEND SHINGLES V ACCINE . Medicare Exam - today we discussed [...] and verbalized understanding of plan. Appointment with car diology-Dr. Luther For your pain, we have given [...] readings at home. Recommend follow up with director internal control for clearance before knee surgery. Will get patient appt with Dr. Luther Arthritis- occasionally uncontrolled symptoms- recommend pt to take antiinflammatory as directed for pain control. Use tylenol for break through pain symptoms. Will start butrans today per Dr. Urena recommendation and montior symptoms. Appt with Dr. Narvaez for possible knee replacement Edema - uncontrolled [...] from toes to thighs. . Hypertension - wel l controlled - continue with current medications, continue [...] . Esophageal Reflux - the patient has be en counseled against excessive intake of caffeine, spicy foods, peppermint, and cinnamon - all of which can exacerbate esophageal reflux. The patient is to take medications as prescribed and call the office if the symptoms are not improving. TAKE OMEPRAZOLE DAILY UTI-on cipro per Dr Almeida which is sensitive to bacteria Constipation-increase stool softener to QOD, daily if needed Edema-take lasix every day-follow up Sunday . HTN - continue wit h current medications - no change at this [...] change in current medications. . Hypertension - wel l controlled - continue with current medications, continue [...] discuss with her . . Hypertension - wel l controlled - continue with current medications, continue [...] fatigue improved-will fax today's note to [facility] [employer] for re-certification of oxygen. . Hypertension - wel l controlled - continue with current medications, continue [...] daytime fatigue improved-will fax today's note to [employer] for re-certification of oxygen. . Sinusitis - [...] spray in the nasal steroid allergy spray. Recommend nasal sali ne rinse . Sinusitis - Pt has acute infection - p ain in face, maxillary region, Pt informed to use decongestant, RX given to patient, sinus rinses also recommended. Call if symptoms do not show improvement. Rocephin injection given in the offie today. Urinary Frequency-UA done today-shows positive nitrites-plan to send for culture-RX for levaquin also sent to patient's pharmacy. rocephin/kenalog start zpack today claritin get flonase otc -1 spray each nare daily . URI - Pt advised to increase fluids, v itamin C. Discussed natural and expected course of this diagnosis and need to alert me if symptoms do not follow expected course, or if any worse. RX sent to patient's pharmacy. . Xrhfq-pnhsaytfqp-y tart zpack when finished with cipro- follow up chest xray on Sunday UTI-finish cipro and repeat UA Urge incontinence -P t has urge incontinence - the patient has [...] for knee pain and to see Dr. Narvaez for further treatment recommendations.. Hypertension - well [...] for knee pain and to see Dr. Narvaez for further treatment recommendations. PATIENT IS TO CHECK BLOOD PRESSURE AND HEART RATE AND BRING IN A RECORD OF THE READINGS INTO THE OFFICE IN 1 MONTH. . Hypertension - uncontrolled - the bessie ent's medications have been modified as documented in [...] months based on previous levels of control. Additional Source Comments This clinical document has been generated using [employer] software that has been certified by the Office of the National Coordinator for Health Information Technology (ONC 15.99.04.3023.Diam.[id number]) and the National Committee for [employer] (NCQA, as an eMeasure certified technology). FOR RECORDS PERTAINING TO PATIENTS WHO ARE OR HAVE BEEN ENROLLED IN A CHEMICAL D EPENDENCY/SUBSTANCE ABUSE PROGRAM, SOME INFORMATION MAY BE OMITTED. This clinica l summary was aggregated from multiple sources. Caution should be exercised in using it in the provision of clinical care. This summary normalizes information from multiple sources, and as a consequence, information in this document may ma terially change the coding, format and clinical context of patient data. In araceli tion, data may be omitted in some cases. CLINICAL DECISIONS SHOULD BE BASED ON T HE PRIMARY CLINICAL RECORDS. [employer] [facility]. provides no warranty or guara ntee of the accuracy or completeness of information in this document.The followi ng information is based on time limited clinical information
--- OUTSIDE RECORDS SUMMARY | 2020-01-05 01:00 | XMS REPORT | CCD ---
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 Tablet(s) TAKE ONE TA BLET BY MOUTH TWICE A DAY 08/23/2015 02/18/2016 Inactive Synthroid 50 mcg tablet RxNorm: 847143 TAKE ONE TABLET BY MOUTH DAILY 07/06/2015 12/22/2015 In active meloxicam 15 mg tablet RxNorm: 060533 TAKE ONE TABLET BY MOUTH ONE TIME A DAY 06/22/2015 11/10/2015 In active Singulair 10 mg tablet RxNorm: 520049 TAKE ONE TABLET BY MOUTH EVERY DAY 05/18/2015 07/16/2016 In active Micardis 80 mg tablet RxNorm: 103908 TAKE ONE TABLET BY MOUTH DAILY 02/22/2015 05/04/2015 In active gabapentin 600 mg ta blet RxNorm: 829308 1 Tablet(s) PO HS as needed 01/15/2015 01/09/2016 Inactive [SAVINGS FOR NON-COVERED DRUGS -- BIN:00 [id number], PCN: ASPROD1, Group: [id number], ID# [id number], Questions: . THIS IS NOT INSURANCE.] diltiazem ER 180 mg capsule,extended release RxNorm: 387601 TAKE ONE CAPSULE BY M OUTH ONCE A DAY 01/07/2015 09/26/2015 Inactive meloxicam 15 mg tablet RxNorm: 126255 TAKE ONE TABLET BY MOUTH ONE TIME A DAY 11/09/2014 05/07/2015 In active gabapentin 600 mg ta blet RxNorm: 775899 1 Tablet(s) PO HS as needed 10/13/2014 01/14/2015 Inactive [SAVINGS FOR UNINSURED PATIENTS -- BIN:0 [id number], PCN: ASPROD1, Group: [id number], ID# [id number], Process claim through [employer], for questions: . THIS IS NOT INSURANCE.] omeprazole 20 mg tab let,delayed release RxNorm: 351985 1 Tablet(s) PO daily 10/13/2014 11/11/2014 In active Synthroid 50 mcg tablet RxNorm: 169468 TAKE ONE TABLET BY MOUTH EVERY DAY 10/12/2014 01/09/2015 In active Synthroid 50 mcg tablet RxNorm: 986701 Tablet(s) TAKE ONE TABLET BY MOUTH EVERY DAY 10/12/2014 10/11/2014 Inactive [SAVINGS FOR UNINSURED PATIENTS -- BIN:0 [id number], PCN: ASPROD1, Group: [id number], ID# [id number], Process claim through [employer], for questions: . THIS IS NOT INSURANCE.] Lasix 40 mg tablet RxNorm: 621138 Tablet(s) PO TAKE ONE TABLET BY MOUTH TW ICE A DAY FOR 3 DAYS, THEN RESUME ONE DAILY EXCEPT ON WEDNESDAYS AND FRIDAYS TAKE ONE TWICE DAILY 09/22/2014 05/28/2018 Inactive [SAVINGS FOR UNINSURED ARTURO ENTS -- BIN:[id number], PCN: ASPROD1, Group: [id number], ID# [id number], Process claim through [employer], for questions: . THIS IS NOT INSURANCE.] Lasix 40 mg tablet RxNorm: 127090 TAKE ONE TABLET BY MOUTH EVERY DAY 09/22/2014 10/18/2015 In active Crestor 10 mg tablet RxNorm: 267445 1 Tablet(s) PO Sun08/28/2014 04/24/2015 Inactive [SAVINGS FOR UNINSURED PATIENTS -- BIN:0 30477, PCN: ASPROD1, Group: [id number], ID# [id number], Process claim through [employer], for questions: . THIS IS NOT INSURANCE.] Crestor 10 mg tablet RxNorm: 329647 1 Tablet(s) PO Sun08/28/2014 08/27/2014 Inactive [SAVINGS FOR UNINSURED PATIENTS -- BIN:0 54217, PCN: ASPROD1, Group: [id number], ID# [id number], Process claim through [employer], for questions: . THIS IS NOT INSURANCE.] Micardis 80 mg tablet RxNorm: 355601 TAKE ONE TABLET BY MOUTH EVERY DAY 08/24/2014 12/21/2014 In active Zithromax Z-Hebert 250 mg tablet RxNorm: 076107 Tablet(s) PO UD 08/14/2014 08/18/2014 Inactive 2 tabs day 1, 1 tabs days 2-5 Anusol-HC 25 mg supp ository RxNorm: 3581581 INSERT 1 RECTALLY DA GUSTAVO NEEDED 07/13/2014 10/10/2014 In active Klor-Con 10 mEq tabl et,extended release RxNorm: 665966 TAKE ONE TABLET BY MO [facility] TWICE A DAY 06/18/2014 12/14/2014 Inactive Lomotil 2.5 mg-0.025 mg tablet RxNorm: 0123554 1 Tablet(s) PO PRN a fter each loose stool max 8 per day 06/15/2014 10/12/2014 Inactive one after each loose bm juarez it 8 per day albuterol sulfate HF A 90 mcg/actuation aerosol inhaler RxNorm: 0151855 1 or2 Puff(s) INH Q4 PRN as needed 05/11/2014 05/10/2014 Inactive albuterol sulfate HF A 90 mcg/actuation aerosol inhaler RxNorm: 7963351 1 or2 Puff(s) INH Q4 PRN as needed 05/11/2014 01/03/2017 Inactive Premarin 0.625 mg/gr am vaginal cream RxNorm: 919946 1/2 Gram(s) VAG every other day 05/11/2014 12/06/2014 In active Premarin 0.625 mg/gr am vaginal cream RxNorm: 845473 1/2 Gram(s) VAG every other day 05/11/2014 05/10/2014 In active cefdinir 300 mg capsule RxNorm: 180269 1 Capsule(s) PO BID 05/07/2014 05/16/2014 Inactive Rocephin 500 mg solu tion for injection RxNorm: 100286 1 Milliliter(s) Inj 05/07/2014 05/07/2014 In active Singulair 10 mg tablet RxNorm: 316486 TAKE ONE TABLET BY MOUTH EVERY DAY 04/30/2014 10/12/2014 In active meloxicam 15 mg tablet RxNorm: 202377 1 Tablet(s) PO daily 04/16/2014 11/08/2014 Inactive Crestor 10 mg tablet RxNorm: 562597 1 Tablet(s) PO Sun TAKE ONE TAB LET BY MOUTH EVERY DAY 04/16/2014 08/27/2014 Inactive Synthroid 50 mcg tablet RxNorm: 141711 TAKE ONE TABLET BY MOUTH EVERY DAY 04/02/2014 09/28/2014 In active diltiazem ER 180 mg capsule,extended release RxNorm: 320178 1 Capsule(s) PO daily 01/05/2014 12/30/2014 In active Pennsaid 1.5 % topic al drops RxNorm: 782170 Drop(s) TOP APPLY 15 - 20 DROPS TOPICALLY FOUR TIMES A DAY 12/29/2013 01/17/2016 Inactive Rocephin 500 mg solu tion for injection RxNorm: 980021 Inj 12/2612/26/2013 Inactive Kenalog 40 mg/mL heaven pension for injection RxNorm: 3057085 Milliliter(s) Inj 12/26/2013 12/26/2013 In active Micardis 80 mg tablet RxNorm: 039850 Tablet(s) PO TAKE ONE TABLET BY MOUTH EV DEANNA12/15/2013 08/23/2014 Inactive nystatin 100,000 uni t/mL oral suspension RxNorm: 637823 4 Unit(s) PO QID swis h and swallow 11/12/2013 12/09/2013 Inactive Kenalog 40 mg/mL heaven pension for injection RxNorm: 4721250 Milliliter(s) Inj 11/12/2013 11/12/2013 In active Lasix 40 mg tablet RxNorm: 686294 Tablet(s) PO TAKE ONE TABLET BY MOUTH TW ICE A DAY FOR 3 DAYS, THEN RESUME ONE DAILY EXCEPT ON WEDNESDAYS AND FRIDAYS TAKE ONE TWICE DAILY 10/30/2013 09/21/2014 Inactive Lasix 40 mg tablet RxNorm: 413858 1 Tablet(s) PO daily 10/30/2013 10/29/2013 Inactive Rocephin 500 mg solu tion for injection RxNorm: 266984 1 Milliliter(s) Inj 10/09/2013 10/09/2013 In active metoprolol succinate ER 25 mg tablet,extended release 24 hr RxNorm: 446267 Tablet(s) PO TAKE ONE TABLET BY MOUTH EVERY DAY 10/02/2013 01/06/2014 Inactive metoprolol succinate ER 25 mg tablet,extended release 24 hr RxNorm: 550904 Tablet(s) PO TAKE ONE TABLET BY MOUTH EVERY DAY 08/04/2013 10/01/2013 Inactive Synthroid 50 mcg tablet RxNorm: 944314 Tablet(s) PO TAKE ONE TABLET BY MOUTH 07/14/2013 04/01/2014 Inactive gabapentin 600 mg ta blet RxNorm: 406870 1 Tablet(s) PO Q8 PRN 06/11/2013 06/11/2013 Inactive gabapentin 600 mg ta blet RxNorm: 214504 1 Tablet(s) PO Q8 PRN 06/11/2013 03/07/2014 Inactive Neurontin 600 mg tablet RxNorm: 465255 1 Tablet(s) PO Q8 PRN 06/10/2013 06/11/2013 Inactive Anusol-HC 25 mg supp ository RxNorm: 7612948 Suppository RTL INSE RT 1 RECTALLY DAILY NEEDED 04/24/2013 07/12/2014 Inactive metoprolol succinate ER 25 mg tablet,extended release 24 hr RxNorm: 809600 1 Tablet(s) PO daily 04/21/2013 08/03/2013 Inactive Premarin 0.625 mg/gr am Vaginal Cream RxNorm: 879512 1/2 Gram(s) VAG every other day 04/03/2013 10/29/2013 In active Klor-Con 10 mEq tabl et,extended release RxNorm: 524564 1 Tablet(s) PO daily 03/26/2013 03/20/2014 In active Klor-Con 10 mEq tabl et,extended release RxNorm: 660787 1 Tablet(s) PO BID 03/24/2013 03/23/2013 In active Klor-Con 10 mEq tabl et,extended release RxNorm: 508418 1 Tablet(s) PO BID 03/24/2013 03/25/2013 In active Klor-Con 10 mEq tabl et,extended release RxNorm: 256273 1 Tablet(s) PO BID 03/24/2013 03/23/2013 In active Augmentin 875 mg-125 mg tablet RxNorm: 140411 1 Tablet(s) PO BID 03/12/2013 03/18/2013 Inactive Augmentin 875 mg-125 mg tablet RxNorm: 525409 1 Tablet(s) PO BID 03/12/2013 03/11/2013 Inactive ciprofloxacin 500 mg tablet RxNorm: 280780 1 Tablet(s) PO BID 03/11/2013 03/17/2013 Inactive ciprofloxacin 500 mg tablet RxNorm: 046341 1 Tablet(s) PO BID 03/11/2013 03/10/2013 Inactive Crestor 10 mg tablet RxNorm: 912786 1 Tablet(s) PO daily 02/10/2013 02/09/2013 Inactive Crestor 10 mg tablet RxNorm: 306191 Tablet(s) PO TAKE ONE TABLET BY MOUTH EV DEANNA DAY 02/10/2013 04/15/2014 Inactive Singulair 10 mg tablet RxNorm: 692607 Tablet(s) PO TAKE ONE TABLET BY MOUTH EV DEANNA DAY 02/04/2013 04/29/2014 Inactive Kenalog 40 mg/mL Heaven p for Injection RxNorm: 2302506 1 Milliliter(s) Inj 11/21/2012 11/21/2012 In active Pennsaid 1.5 % topic al drops RxNorm: 115457 15-20 Drop(s) TOP QID 10/28/2012 11/21/2013 Inactive Micardis 80 mg tablet RxNorm: 087801 1 Tablet(s) PO daily 10/28/2012 10/22/2013 Inactive put this on file please, quantitiy incre ase Pennsaid 1.5 % Topic al Drops RxNorm: 232572 15-20 Drop(s) TOP QID 10/28/2012 10/27/2012 Inactive diltiazem ER 180 mg capsule,extended release RxNorm: 801079 1 Capsule(s) PO daily 10/14/2012 10/08/2013 In active Pyridium 200 mg tablet RxNorm: 8430789 1 Tablet(s) PO Q8 PRN 09/11/2012 10/12/2014 Inactive Flagyl 500 mg tablet RxNorm: 174517 1 Tablet(s) PO TID 09/04/2012 09/10/2012 Inactive Macrobid 100 mg capsule RxNorm: 3959903 1 Capsule(s) PO BID 09/03/2012 09/02/2012 Inactive Macrobid 100 mg capsule RxNorm: 8591551 1 Capsule(s) PO BID 09/03/2012 09/09/2012 Inactive sulfamethoxazole-tri methoprim 800 mg-160 mg tablet RxNorm: 429762 1 Tablet(s) PO BID 08/05/2012 08/14/2012 Inactive Lasix 40 mg tablet RxNorm: 585980 1 Tablet(s) PO BID pt is taking extra la six x 3 days, then every sunday and sunday take two lasix pills. 07/15/2012 07/09/2013 Inactive Synthroid 50 mcg tablet RxNorm: 463119 1 Tablet(s) PO daily 07/15/2012 07/09/2013 Inactive do not substitute the generic levothyrox ine for the synthroid brand name.....she needs brand name synthroid. Klor-Con 10 mEq tabl et,extended release RxNorm: 765710 1 Tablet(s) PO BID 07/15/2012 03/23/2013 In active Singulair 10 mg tablet RxNorm: 945096 1 Tablet(s) PO daily 06/12/2012 02/03/2013 Inactive Lexapro 10 mg tablet RxNorm: 758012 1/2 Tablet(s) PO daily 05/10/2012 06/03/2013 Inactive ProAir HFA 90 mcg/ac tuation Aerosol Inhaler RxNorm: 654820 2 INH Q6 PRN 04/23/2012 01/17/2016 In active Lexapro 10 mg tablet RxNorm: 790492 1/2 Tablet(s) PO daily 04/19/2012 05/09/2012 Inactive metoprolol succinate ER 50 mg tablet,extended release 24 hr RxNorm: 829600 1 Tablet(s) PO daily 04/09/2012 04/09/2012 Inactive Klor-Con 10 10 mEq t ablet,extended release RxNorm: 588950 1 Tablet(s) PO daily 04/01/2012 07/14/2012 In active metoprolol succinate ER 50 mg tablet,extended release 24 hr RxNorm: 645625 1/2 Tablet(s) PO BID 03/11/2012 04/08/2012 Inactive clonidine 0.1 mg Tab RxNorm: 383291 1 Tablet(s) PO BID 02/19/2012 03/12/2012 Inactive clonidine 0.1 mg Tab RxNorm: 274364 1 Tablet(s) PO BID 02/19/2012 02/18/2012 Inactive Micardis 80 mg Tab RxNorm: 426533 1 Tablet(s) PO daily 02/14/2012 02/13/2012 Inactive Micardis 80 mg tablet RxNorm: 613301 1 Tablet(s) PO daily 02/14/2012 10/27/2012 Inactive Synthroid 50 mcg tablet RxNorm: 393216 1 Tablet(s) PO daily 02/12/2012 07/14/2012 Inactive Tekturna 300 mg Tab RxNorm: 5391925 1 Tablet(s) PO daily 02/12/2012 03/12/2012 Inactive Lasix 40 mg Tab RxNorm: 736219 1 Tablet(s) PO daily 12/18/2011 12/17/2011 Inactive Lasix 40 mg tablet RxNorm: 663039 1 Tablet(s) PO daily 12/18/2011 07/14/2012 Inactive Anusol-HC 25 mg Supp ository RxNorm: 0363070 1 Suppository RTL QD AY PRN 12/04/2011 04/19/2012 In active lactobacillus acidop hilus Cap RxNorm: 1 Capsule(s) PO BID 11/21/2011 11/20/2011 Inactive lactobacillus acidop hilus Cap RxNorm: 1 Capsule(s) PO BID 11/21/2011 11/20/2011 Inactive Cipro 500 mg Tab RxNorm: 932603 1 Tablet(s) PO BID 11/21/2011 03/12/2012 Inactive lactobacillus acidop hilus Cap RxNorm: 1 Capsule(s) PO BID 11/21/2011 11/27/2011 Inactive lactobacillus acidop hilus Cap RxNorm: 1 Capsule(s) PO BID 11/21/2011 11/20/2011 Inactive Cipro 500 mg Tab RxNorm: 398205 1 Tablet(s) PO BID 11/21/2011 11/20/2011 Inactive Lexapro 10 mg Tab RxNorm: 632052 1 Tablet(s) PO daily 11/13/2011 11/12/2011 Inactive Lexapro 10 mg tablet RxNorm: 878554 1 Tablet(s) PO daily 11/13/2011 04/18/2012 Inactive amlodipine 10 mg Tab RxNorm: 605099 1 Tablet(s) PO daily 10/09/2011 12/03/2011 Inactive amlodipine 5 mg Tab RxNorm: 941126 1 Tablet(s) PO daily 09/20/2011 12/04/2011 Inactive Rocephin 500 mg Solu tion for Injection RxNorm: 3993787 Inj 11/201109/20/2011 Inactive metoprolol succinate ER 25 mg 24 hr Tab RxNorm: 116221 1 Tablet(s) PO QHS 08/30/2011 09/20/2011 In active Ambien 10 mg Tab RxNorm: 571686 1 Tablet(s) PO HS PRN 08/30/2011 04/19/2012 Inactive Augmentin 875 mg-125 mg Tab RxNorm: 281176 1 Tablet(s) PO BID 08/25/2011 09/20/2011 Inactive Augmentin 875 mg-125 mg Tab RxNorm: 437518 1 Tablet(s) PO BID 08/25/2011 08/24/2011 Inactive Rocephin 500 mg Solu tion for Injection RxNorm: 6810858 Inj 07/2808/23/2011 Inactive Levaquin 500 mg Tab RxNorm: 865952 1 Tablet(s) PO daily 08/23/2011 08/30/2011 Inactive chlordiazepoxide-cli dinium 5 mg-2.5 mg Cap RxNorm: 938144 1 Capsule(s) PO BID 07/10/2011 04/19/2012 In active q 12 hours prn metoprolol succinate ER 100 mg 24 hr Tab RxNorm: 766818 1 Tablet(s) PO daily 05/29/2011 03/12/2012 In active Synthroid 50 mcg Tab RxNorm: 249085 1 Tablet(s) PO daily 05/15/2011 08/12/2011 Inactive Ambien CR 12.5 mg Tab RxNorm: 245109 1 Tablet(s) PO HS PRN 05/09/2011 08/30/2011 Inactive Ambien 10 mg Tab RxNorm: 190241 1 Tablet(s) PO QHS 05/09/2011 06/07/2011 Inactive Nexium 40 mg Cap RxNorm: 057635 1 Capsule(s) PO daily 05/04/2011 03/12/2012 Inactive the patient had tried pepcid, otc priolosec, RX omperazole, failed them all Bactrim DS 800 mg-16 0 mg Tab RxNorm: 321113 1 Tablet(s) PO BID 04/19/2011 08/30/2011 Inactive triamcinolone aceton margie 40 mg/mL Susp for Injection RxNorm: 8324228 1 Milliliter(s) Inj UD 04/19/2011 04/19/2011 Inactive aspirin 81 mg Tab, D elayed Release RxNorm: 485476 1 Tablet(s) PO daily No Start Date Active 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 Device RxNorm: 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, 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 No Start Date Active Cymbalta 30 mg Cap RxNorm: 823697 1 Capsule(s) PO daily No Start Date 03/12/2012 Inactive Nexium 40 mg Cap RxNorm: 358617 Capsule(s) PO No Start Date 05/03/2011 Inactive Benadryl 25 mg capsule RxNorm: 9889894 1 Capsule(s) PO QHS No Start Date 01/03/2017 Inactive Klor-Con 10 10 mEq t ablet,extended release RxNorm: 898042 1 Tablet(s) PO daily No Start Date 03/31/2012 Inactive Metamucil Oral RxNorm: Oral No Start Date 10/12/2014 Inactive amlodipine 10 mg Tab RxNorm: 182293 1 Tablet(s) PO daily No Start Date 10/08/2011 Inactive Norvasc 5 mg tablet RxNorm: 437560 1 Tablet(s) PO daily No Start Date 10/12/2014 Inactive Lasix 40 mg Tab RxNorm: 849527 1 Tablet(s) PO daily No Start Date 12/17/2011 Inactive diltiazem ER (XR/XT) 240 mg capsule,extended release,controlled RxNorm: 328903 1 Capsule(s) PO daily No Start Date 04/22/2012 Inactive Centrum Silver Ultra Women's oral RxNorm: oral No Start D ate 04/24/2018 Inactive Synthroid 50 mcg Tab RxNorm: 437254 1 Tablet(s) PO daily No Start Date 05/14/2011 Inactive Flagyl 500 mg tablet RxNorm: 508164 1 Tablet(s) PO No Start Date 09/03/2012 Inactive one after each loose bm limit 8 per day Boniva 150 mg Tab RxNorm: 314285 1 Tablet(s) PO UD No Start Date 08/30/2011 Inactive monthly Singulair 10 mg tablet RxNorm: 137061 1 Tablet(s) PO daily No Start Date 06/11/2012 Inactive folic acid Oral RxNorm: Oral No Start Date 03/12/2012 Inactive potassium chloride E R 10 mEq tablet,extended release RxNorm: 137103 1 Tablet(s) PO daily No Start Date 01/03/2017 Inactive Probiotic & Acidophi jerilyn oral RxNorm: oral No Start D ate 04/24/2018 Inactive Librium 10 mg Cap RxNorm: 803005 Capsule(s) PO UD No Start Date 03/12/2012 Inactive q 12 hours prn Crestor 10 mg tablet RxNorm: 364034 1 Tablet(s) PO daily No Start Date 02/09/2013 Inactive multivitamin Cap RxNorm: 1 Capsule(s) PO daily No Start Date 01/17/2016 Inactive metoprolol succinate ER 100 mg 24 hr Tab RxNorm: 665408 1 Tablet(s) PO daily No Start Date 05/28/2011 Inactive Zithromax Z-Hebert 250 mg tablet RxNorm: 399320 Tablet(s) PO UD No Start Date 12/22/2015 Inactive diltiazem ER 180 mg capsule,extended release RxNorm: 246892 1 Capsule(s) PO daily No Start Date 10/13/2012 Inactive ProctoCream-HC 2.5 % rectal cream with applicator RxNorm: 148150 APPLY TO AFFECTED AREAS DIRECTED RTL No Start Date 09/30/2018 Inactive Tekturna 300 mg Tab RxNorm: 9840344 1 Tablet(s) PO daily samples No Start Date 02/11/2012 Inactive Xanax 0.25 mg tablet RxNorm: 265671 1-2 Tablet(s) PO QHS as needed insomnia No Start Date 07/24/2017 Inactive Fish Oil 1,000 mg Cap RxNorm: 1 Capsule(s) PO daily No Start Date 04/24/2018 Inactive ProAir HFA 90 mcg/ac tuation Aerosol Inhaler RxNorm: 7093317 2 INH Q6 PRN No Start Date 04/22/2012 Inactive chlordiazepoxide-cli dinium 5 mg-2.5 mg Cap RxNorm: 056293 1 Capsule(s) PO PRN No Start Date 07/09/2011 Inactive q 12 hours prn Butrans 5 mcg/hour T ransderm Patch RxNorm: 338970 1 Patch TD weekly No Start Date 05/26/2012 Inactive Lactobacillus acidop hilus tablet RxNorm: 4 Tablet(s) PO daily No Start Date 01/03/2017 Inactive Librax (with clidini um) 5 mg-2.5 mg capsule RxNorm: 855012 1 Capsule(s) PO BID No Start Date 04/18/2012 Inactive Nexium 40 mg capsule ,delayed release RxNorm: 099873 Capsule(s) PO PRN No Start Date 10/12/2014 Inactive Tylenol Extra Streng th 500 mg tablet RxNorm: 445853 1 Tablet(s) PO BID as needed for pain No Start Date 04/24/2018 Inactive Premarin 0.625 mg/gr am Vaginal Cream RxNorm: 786740 Gram(s) VAG No Start Date 03/12/2012 Inactive three times a week, small amt to vaginal tissuesample given metoprolol succinate ER 50 mg tablet,extended release 24 hr RxNorm: 279159 1 Tablet(s) PO daily No Start Date 03/10/2012 Inactive Zithromax Z-Hebert 250 mg tablet RxNorm: 822181 Tablet(s) PO UD No Start Date 08/13/2014 Inactive albuterol sulfate HF A 90 mcg/actuation aerosol inhaler RxNorm: 1920741 1 or2 Puff(s) INH Q4 PRN No Start Date 05/10/2014 Inactive Xanax 0.25 mg Tab RxNorm: 967960 1/2-1 Tablet(s) PO Q8 PRN No Start Date 03/12/2012 Inactive metoprolol succinate ER 25 mg tablet,extended release 24 hr RxNorm: 285107 1 Tablet(s) PO daily No Start Date 04/20/2013 Inactive Zithromax Z-Hebert 250 mg tablet RxNorm: 014810 1 Tablet(s) PO UD No Start Date 08/10/2016 Inactive Z PACK DIRECTED calcium carbonate 60 0 mg (1,500 mg) Tab RxNorm: 288443 1 Tablet(s) PO BID No Start Date 01/03/2017 Inactive albuterol sulfate HF A 90 mcg/Actuation Aerosol Inhaler RxNorm: 8857842 1-2 Puff(s) INH Q4 PRN No Start Date 03/11/2012 Inactive Vitamin D3 2,000 uni t capsule RxNorm: 916887 1 Capsule(s) PO daily No Start Date 10/12/2014 Inactive Colace 100 mg Cap RxNorm: 1808502 1 Capsule(s) PO BID No Start Date 01/17/2016 Inactive Neurontin 600 mg tablet RxNorm: 778325 1 Tablet(s) PO Q8 PRN No Start Date 06/09/2013 Inactive Lomotil 2.5 mg-0.025 mg tablet RxNorm: 8817407 1 Tablet(s) PO No Start Date 06/14/2014 Inactive one after each loose bm limit 8 per day Micardis 80 mg Tab RxNorm: 780953 1 Tablet(s) PO daily No Start Date 12/03/2011 Inactive Pyridium 200 mg tablet RxNorm: 8636828 1 Tablet(s) PO Q8 PRN No Start Date 09/10/2012 Inactive Medication Administered Medication Codes Instruc tions Start Date Status Kenalog 40 mg/mL suspension for injection RxNorm: 8526329 1M08/09/2017 N o longer Active ceftriaxone 500 mg solution for injection RxNorm: 7384270 08/09/2017 No longer A ctive Kenalog 40 mg/mL suspension for injection RxNorm: 8337938 1M01/04/2017 N o longer Active Kenalog 40 mg/mL suspension for injection RxNorm: 2859023 Milliliter 08/23/2016 No longer Active Rocephin 500 mg solution for injection RxNorm: 532720 1Milliliter 05/07/2014 N o longer Active Kenalog 40 mg/mL suspension for injection RxNorm: 3486008 Milliliter 12/26/2013 No longer Active Rocephin 500 mg solution for injection RxNorm: 796100 12/26/2013 No longer A ctive Kenalog 40 mg/mL suspension for injection RxNorm: 5662484 Milliliter 11/12/2013 No longer Active Rocephin 500 mg solution for injection RxNorm: 775282 1Milliliter 10/09/2013 N o longer Active Kenalog 40 mg/mL Susp for Injection RxNorm: 6216924 1Mliter 11/21/2012 N o longer Active Rocephin 500 mg Solution for Injection RxNorm: 3919800 08/23/2011 No longer A ctive triamcinolone acetonide 40 mg/mL Susp for Injection RxNorm: 1091122 1Mter 04/19/2011 No longer Active Immunizations Vaccine Codes Date Status SHINGARIX CVX: 121 07/02 completed Influenza CVX: 141 05/22 completed Influenza CVX: 141 06/16 completed Pneumococcal CVX: 133 completed PPD Unknown 08/07/2014 completed Influenza CVX: 141 05/20 completed Influenza CVX: 141 06/11 completed zostavax CVX: 121 2012 completed Influenza CVX: 141 05/03 completed Influenza Unknown 2009 completed Assessments Condition Codes Effectiv e Dates Contusion of [...] 11/12/2013 Laboratory exam ordered as part of [facility] general medical examination ICD-9: V72.62 11/12/2013 [...] 624.8 08/09/2011 ESOPHAGEAL REFLUX ICD-9: 530.81 05/04/2011 Reason For Visit Reason For Visit Effective Dates Notes ecchymosis [...] Item Item Code Result Date Comp Metabolic Jac616 NA 139 mEq/L 05/29/2018 Comp Metabolic Yig799 K 4.1 mEq/L 05/29/2018 Comp Metabolic Aft365 CL 99 mEq/L 05/29/2018 Comp Metabolic Jxg759 CO2 30.0 mEq/L 05/29/2018 Comp Metabolic Eih242 AN ION GAP 14 05/29/2018 Comp Metabolic Oyg640 GL UCOSE 107 mg/dL 05/29/2018 Comp Metabolic Oxc973 Cr eat 0.6 mg/dL 05/29/2018 Comp Metabolic Xae606 eG FR 95 ml/min/1.73m2 05/29 Comp Metabolic Krv828 BUN 15 mg/dL 05/29/2018 Comp Metabolic Wqv502 B/ C Ratio 23.4 Ratio 05/29/2018 Comp Metabolic Cxe155 CA LCIUM 9.4 mg/dL 05/29/2018 Comp Metabolic Kxw974 AL K PHOS 52 U/L 05/29/2018 Comp Metabolic Cmy111 T(SGOT) 16 U/L 05/29/2018 Comp Metabolic Yxa624 AL T(SGPT) 12 U/L 05/29/2018 Comp Metabolic Rqv845 BI LI T 1.1 mg/dL 05/29/2018 Comp Metabolic Zbz145 AL BUMIN 4.0 g/dL 05/29/2018 Comp Metabolic Wrf547 TP RO 6.5 g/dL 05/29/2018 Comp Metabolic Fxf842 GL OB 2.5 g/dL 05/29/2018 Comp Metabolic Urf128 A/ G Ratio 1.6 Ratio 05/29/2018 Comp Metabolic Pna329 Os mo 279 mOsmo 05/29/2018 Cbc With Differential Ord2 [...] 28.9 pg 05/29/2018 Cbc With Differential Ord2 Daggett% 9.0 % 05/29/2018 Cbc With Differential Ord2 [...] 2.05 K/ul 05/29/2018 Cbc With Differential Ord2 Daggett ABS# 0.7 K/ul 05/29/2018 Cbc With Differential Ord2 Eos ABS# 0.2 K/ul 05/29/2018 Cbc With Differential Ord2 Baso ABS# 0.0 K/ul 05/29/2018 Tsh Ord6 TSH (3rd IS) 2.05 uIU/mL 05/29/2018 Lipid Ord30 CHOL 191 mg/dL 05/29/2018 Lipid Ord30 HDL 68.0 mg/dl 05/29/2018 Lipid Ord30 TRIG 138 mg/dL 05/29/2018 Lipid Ord30 LDL 95 mg/dL 05/29/2018 Lipid Ord30 C/HDL 2.8 Ratio 05/29/2018 Free T4 Ebf071 FREE T4 0.93 ng/dL 05/29/2018 Free T4 Uyd185 FREE T4 0.90 ng/dL 09/12/2017 Cbc With [...] 29.3 pg 09/12/2017 Cbc With Differential Ord2 Daggett% 8.7 % 09/12/2017 Cbc With Differential Ord2 [...] 2.72 K/ul 09/12/2017 Cbc With Differential Ord2 [place] ABS# 1.2 K/ul 09/12/2017 Cbc With Differential Ord2 Eos ABS# 0.3 K/ul 09/12/2017 Cbc With Differential Ord2 Baso ABS# 0.1 K/ul 09/12/2017 Comp Metabolic Kco264 NA 140 mEq/L 09/12/2017 Comp Metabolic Fnc681 K 4.3 mEq/L 09/12/2017 Comp Metabolic Wyc066 CL 99 mEq/L 09/12/2017 Comp Metabolic Gre520 CO2 33.0 mEq/L 09/12/2017 Comp Metabolic Mdr525 AN ION GAP 12 09/12/2017 Comp Metabolic Aeo172 GL UCOSE 92 mg/dL 09/12/2017 Comp Metabolic Xhq637 Cr eat 0.7 mg/dL 09/12/2017 Comp Metabolic Hpe145 eG FR 84 ml/min/1.73m2 09/12 Comp Metabolic Zgn404 BUN 18 mg/dL 09/12/2017 Comp Metabolic Mls251 B/ C Ratio 25.4 Ratio 09/12/2017 Comp Metabolic Hus413 CA LCIUM 9.3 mg/dL 09/12/2017 Comp Metabolic Kbp232 AL K PHOS 64 U/L 09/12/2017 Comp Metabolic Cmj842 T(SGOT) 13 U/L 09/12/2017 Comp Metabolic Pnm650 AL T(SGPT) 12 U/L 09/12/2017 Comp Metabolic Dkz505 BI LI T 0.7 mg/dL 09/12/2017 Comp Metabolic Urw013 AL BUMIN 4.0 g/dL 09/12/2017 Comp Metabolic Uvp924 TP RO 6.3 g/dL 09/12/2017 Comp Metabolic Qvg282 GL OB 2.3 g/dL 09/12/2017 Comp Metabolic Akh682 A/ G Ratio 1.8 Ratio 09/12/2017 Comp Metabolic Yqe914 Os mo 281 mOsmo 09/12/2017 Lipid Ord30 CHOL 213 [...] 28.8 pg 03/09/2016 Cbc With Differential Ord2 [place]% 8.5 % 03/09/2016 Cbc With Differential Ord2 [...] 2.38 K/ul 03/09/2016 Cbc With Differential Ord2 [place] ABS# 0.8 K/ul 03/09/2016 Cbc With Differential Ord2 Eos ABS# 0.2 K/ul 03/09/2016 Cbc With Differential Ord2 Baso ABS# 0.1 K/ul 03/09/2016 Comp Metabolic Vhk485 NA 138 mEq/L 03/09/2016 Comp Metabolic Gaw693 K 4.5 mEq/L 03/09/2016 Comp Metabolic Zon698 CL 100 mEq/L 03/09/2016 Comp Metabolic Did162 CO2 33.0 mEq/L 03/09/2016 Comp Metabolic Rli918 AN ION GAP 10 03/09/2016 Comp Metabolic Cod870 GL UCOSE 94 mg/dL 03/09/2016 Comp Metabolic Gnd938 Cr eat 0.6 mg/dL 03/09/2016 Comp Metabolic Bfb033 eG FR 106 ml/min/1.73m2 02/24 Comp Metabolic Koy865 BUN 10 mg/dL 03/09/2016 Comp Metabolic Cao809 B/ C Ratio 17.2 Ratio 03/09/2016 Comp Metabolic Ezb585 CA LCIUM 9.2 mg/dL 03/09/2016 Comp Metabolic Cky229 AL K PHOS 64 U/L 03/09/2016 Comp Metabolic Aax869 T(SGOT) 20 U/L 03/09/2016 Comp Metabolic Kbl618 AL T(SGPT) 11 U/L 03/09/2016 Comp Metabolic Snu344 BI LI T 0.9 mg/dL 03/09/2016 Comp Metabolic Xvm531 AL BUMIN 4.0 g/dL 03/09/2016 Comp Metabolic Jwb551 TP RO 6.1 g/dL 03/09/2016 Comp Metabolic Vey755 GL OB 2.1 g/dL 03/09/2016 Comp Metabolic Pmd607 A/ G Ratio 1.9 Ratio 03/09/2016 Comp Metabolic Lbl827 Os mo 274 mOsmo 03/09/2016 Free T4 Oxs242 FREE T4 0.90 ng/dL 03/09/2016 Lipid Ord30 [...] hTSH II 3.25 uIU/mL 09/07/2015 Free T4 Bcj780 FREE T4 0.79 ng/dL 09/07/2015 Comp Metabolic Ket662 NA 137 mEq/L 09/07/2015 Comp Metabolic Lfa822 K 4.0 mEq/L 09/07/2015 Comp Metabolic Xcb243 CL 98 mEq/L 09/07/2015 Comp Metabolic Aly720 CO2 30.0 mEq/L 09/07/2015 Comp Metabolic Gzg422 AN ION GAP 13 09/07/2015 Comp Metabolic Hpv879 GL UCOSE 101 mg/dL 09/07/2015 Comp Metabolic Ksd075 Cr eat 0.6 mg/dL 09/07/2015 Comp Metabolic Kyh246 eG FR 111 ml/min/1.73m2 08/27 Comp Metabolic Lun176 BUN 16 mg/dL 09/07/2015 Comp Metabolic Kbz790 B/ C Ratio 28.6 Ratio 09/07/2015 Comp Metabolic Ctw690 CA LCIUM 9.4 mg/dL 09/07/2015 Comp Metabolic Lyr188 AL K PHOS 68 U/L 09/07/2015 Comp Metabolic Wci881 T(SGOT) 16 U/L 09/07/2015 Comp Metabolic Yyy513 AL T(SGPT) 12 U/L 09/07/2015 Comp Metabolic Alv175 BI LI T 0.9 mg/dL 09/07/2015 Comp Metabolic Csl284 AL BUMIN 4.1 g/dL 09/07/2015 Comp Metabolic Uvt706 TP RO 6.5 g/dL 09/07/2015 Comp Metabolic Vkz296 GL OB 2.4 g/dL 09/07/2015 Comp Metabolic Xsg242 A/ G Ratio 1.7 Ratio 09/07/2015 Comp Metabolic Yvg262 Os mo 275 mOsmo 09/07/2015 Cbc With Differential Ord2 [...] Differential Ord2 RDW 14.4 % 09/07/2015 TSH [id number] TSH 0.920 uIU/ML 08/28/2014 CBC [id number] WBC 12.5 10e9/L 08/28/2014 CBC 4297865 RBC 3.44 10e12/L 08/28/2014 CBC 8599347 HGB 10.3 g/dL 08/28/2014 CBC 2677132 HCT DET 33.9 % 08/28/2014 CBC 4530562 MCV 98.5 fL 08/28/2014 CBC 0759791 MCH 29.9 pg 08/28/2014 CBC 1177981 MCHC 30.4 g/dL 08/28/2014 CBC 7425217 PLT 412 10e9/L 08/28/2014 CBC 9716696 MPV 10.2 fL 08/28/2014 CBC 0329232 NNEKA % 68.5 % 08/28/2014 CBC 2710259 LY % 20.8 % 08/28/2014 CBC 0640026 MON % 9.9 % 08/28/2014 CBC 1104481 EOS % 0.6 % 08/28/2014 CBC 2765917 BASO % 0.2 % 08/28/2014 CBC 9135164 RDW 15.8 % 08/28/2014 CBC 8298540 ABS NNEKA 8.56 10e9/L 08/28/2014 CBC 8502002 ABS LYMPH 2.60 10e9/L 08/28/2014 CBC 7831829 ABS MONO 1.24 10e9/L 08/28/2014 CBC 0515523 ABS EOS 0.08 10e9/L 08/28/2014 CBC 0185239 ABS BASO 0.03 10e9/L 08/28/2014 CBC 5821855 RDW-SD 55.4 fL 08/28/2014 GFR CALC 3187920 GFR AA >60 ML/MIN 08/28/2014 GFR CALC 8426349 GFR NON -AA >60 ML/MIN 08/28/2014 LIPID GRP 7043214 HDL TE ST 69 MG/DL 08/28/2014 LIPID GRP 9870424 TRIG 158 MG/DL 08/28/2014 LIPID GRP 4521503 TEST L DL 96 MG/DL 08/28/2014 LIPID GRP 6133381 CHOL 197 MG/DL 08/28/2014 LIPID GRP RCHOL/ HDL 2.86 RATIO 08/28/2014 LIPID GRP NON-HD L CH 128 MG/DL 08/28/2014 CHEM 14 0962552 AST 14 U/L 08/28/2014 CHEM 14 0511937 ALT 13 IU/L 08/28/2014 CHEM 14 2862160 BUN 15 MG/DL 08/28/2014 CHEM 14 2558565 ALBUMIN 4.2 GM/DL 08/28/2014 CHEM 14 6779693 CHLORIDE 98 MMOL/L 08/28/2014 CHEM 14 8169728 BILI TOT 1.2 MG/DL 08/28/2014 CHEM 14 3121426 ALK PHOS 68 U/L 08/28/2014 CHEM 14 5391331 SODIUM 137 MMOL/L 08/28/2014 CHEM 14 4718487 CREATINI NE 0.68 MG/DL 08/28/2014 CHEM 14 0218507 CALCIUM 9.1 MG/DL 08/28/2014 CHEM 14 1791614 POTASSIUM 3.7 MMOL/L 08/28/2014 CHEM 14 3015950 PROT TOT 6.2 GM/DL 08/28/2014 CHEM 14 9888758 GLUCOSE 91 MG/DL 08/28/2014 CHEM 14 4482776 BICARB 31 MMOL/L 08/28/2014 CHEM 14 0859502 ANION GAP 8 MEQ/L 08/28/2014 FREE T4 2091853 FREE T4 1.44 NG/DL 08/28/2014 LIPID GRP HDL TE ST 73 MG/DL 04/16/2014 LIPID GRP TRIG 131 MG/DL 04/16/2014 LIPID GRP TEST L DL 99 MG/DL 04/16/2014 LIPID GRP 8892853 CHOL 198 MG/DL 04/16/2014 LIPID GRP 5942687 RCHOL/ HDL 2.71 RATIO 04/16/2014 LIPID GRP NON-HD L CH 125 MG/DL 04/16/2014 CHEM 14 4650881 AST 17 U/L 04/14/2014 CHEM 14 5076474 ALT 17 IU/L 04/14/2014 CHEM 14 7075185 BUN 15 MG/DL 04/14/2014 CHEM 14 0254543 ALBUMIN 4.3 GM/DL 04/14/2014 CHEM 14 2079253 CHLORIDE 96 MMOL/L 04/14/2014 CHEM 14 8410483 BILI TOT 0.9 MG/DL 04/14/2014 CHEM 14 8479254 ALK PHOS 65 U/L 04/14/2014 CHEM 14 6283523 SODIUM 135 MMOL/L 04/14/2014 CHEM 14 4898715 CREATINI NE 0.69 MG/DL 04/14/2014 CHEM 14 1130787 CALCIUM 9.5 MG/DL 04/14/2014 CHEM 14 6971170 POTASSIUM 4.1 MMOL/L 04/14/2014 CHEM 14 6083496 PROT TOT 6.6 GM/DL 04/14/2014 CHEM 14 3830668 GLUCOSE 104 MG/DL 04/14/2014 CHEM 14 7699062 BICARB 34 MMOL/L 04/14/2014 CHEM 14 9228908 ANION GAP 5 MEQ/L 04/14/2014 A1C HPLC 4980344 A1C HPLC 85208-3 5.0 % 04/14/2014 TSH 6044153 TSH 2.140 uIU/ML 04/14/2014 FREE T4 5538962 FREE T4 1.56 NG/DL 04/14/2014 GFR CALC 2975686 GFR AA >60 ML/MIN 04/14/2014 GFR CALC 4319042 GFR NON -AA >60 ML/MIN 04/14/2014 CBC 8455098 WBC 12.8 10e9/L 04/14/2014 CBC 1825670 RBC 4.44 10e12/L 04/14/2014 CBC 8507111 HGB 13.2 g/dL 04/14/2014 CBC 7267119 HCT DET 41.4 % 04/14/2014 CBC 5555744 MCV 93.2 fL 04/14/2014 CBC 8333908 MCH 29.7 pg 04/14/2014 CBC 6204926 MCHC 31.9 g/dL 04/14/2014 CBC 0117721 PLT 383 10e9/L 04/14/2014 CBC 2201184 MPV 10.1 fL 04/14/2014 CBC 8862445 NNEKA % 65.5 % 04/14/2014 CBC 0167978 LY % 23.0 % 04/14/2014 CBC 8380635 MON % 9.9 % 04/14/2014 CBC 2773481 EOS % 1.3 % 04/14/2014 CBC 2018875 BASO % 0.3 % 04/14/2014 CBC 3995244 RDW 13.7 % 04/14/2014 CBC 1831297 ABS NNEKA 8.38 10e9/L 04/14/2014 CBC 0268057 ABS LYMPH 2.94 10e9/L 04/14/2014 CBC 6984175 ABS MONO 1.27 10e9/L 04/14/2014 CBC 7990665 ABS EOS 0.17 10e9/L 04/14/2014 CBC 7626901 ABS BASO 0.04 10e9/L 04/14/2014 CBC 0580849 RDW-SD 45.9 fL 04/14/2014 A1C HPLC 8452694 A1C HPLC 85517-1 4.9 % 11/13/2013 CHEM 14 3924014 AST 15 U/L 11/12/2013 CHEM 14 4724020 ALT 14 IU/L 11/12/2013 CHEM 14 7756273 BUN 14 MG/DL 11/12/2013 CHEM 14 8140387 ALBUMIN 4.3 GM/DL 11/12/2013 CHEM 14 5958608 CHLORIDE 101 MMOL/L 11/12/2013 CHEM 14 5653793 BILI TOT 0.9 MG/DL 11/12/2013 CHEM 14 9219435 ALK PHOS 67 U/L 11/12/2013 CHEM 14 4069945 SODIUM 139 MMOL/L 11/12/2013 CHEM 14 5184158 CREATINI NE 0.67 MG/DL 11/12/2013 CHEM 14 8182669 CALCIUM 9.5 MG/DL 11/12/2013 CHEM 14 3884799 POTASSIUM 4.1 MMOL/L 11/12/2013 CHEM 14 1174748 PROT TOT 6.5 GM/DL 11/12/2013 CHEM 14 3840783 GLUCOSE 102 MG/DL 11/12/2013 CHEM 14 1150516 BICARB 30 MMOL/L 11/12/2013 CHEM 14 5065541 ANION GAP 8 MEQ/L 11/12/2013 GFR CALC 7454303 GFR AA >60 ML/MIN 11/12/2013 GFR CALC 6177866 GFR NON -AA >60 ML/MIN 11/12/2013 TSH 0852436 TSH 2.445 uIU/ML 11/12/2013 FREE T4 7193002 FREE T4 1.09 NG/DL 11/12/2013 CBC 6756072 WBC 7.6 10e9/L 11/12/2013 CBC 1957879 RBC 4.42 10e12/L 11/12/2013 CBC 5033954 HGB 13.1 g/dL 11/12/2013 CBC 2146707 HCT DET 41.2 % 11/12/2013 CBC 3277843 MCV 93.2 fL 11/12/2013 CBC 7307354 MCH 29.6 pg 11/12/2013 CBC 4402428 MCHC 31.8 g/dL 11/12/2013 CBC 7623533 PLT 314 10e9/L 11/12/2013 CBC 8345120 MPV 10.4 fL 11/12/2013 CBC 6273929 NNEKA % 59.8 % 11/12/2013 CBC 2462904 LY % 28.1 % 11/12/2013 CBC 0707949 MON % 9.5 % 11/12/2013 CBC 0822469 EOS % 1.8 % 11/12/2013 CBC 7391228 BASO % 0.8 % 11/12/2013 CBC 5308971 RDW 13.8 % 11/12/2013 CBC 0767640 ABS NNEKA 4.54 10e9/L 11/12/2013 CBC 6875748 ABS LYMPH 2.14 10e9/L 11/12/2013 CBC 3628229 ABS MONO 0.72 10e9/L 11/12/2013 CBC 5306278 ABS EOS 0.14 10e9/L 11/12/2013 CBC 1267024 ABS BASO 0.06 10e9/L 11/12/2013 CBC 4973828 RDW-SD 46.0 fL 11/12/2013 LIPID GRP HDL TE ST 66 MG/DL 11/12/2013 LIPID GRP 9380285 TRIG 130 MG/DL 11/12/2013 LIPID GRP 5674596 TEST L DL 108 MG/DL 11/12/2013 LIPID GRP CHOL 200 MG/DL 11/12/2013 LIPID GRP RCHOL/ HDL 3.03 RATIO 11/12/2013 HS ENE ZOS 5598846 HS VA R ZOS IMMUNE 04/04/2013 A1C 5124161 A1C HPLC 28790-0 5.2 % 04/03/2013 GFR CALC 6933595 GFR AA >60 ML/MIN 03/31/2013 GFR CALC 6354074 GFR NON -AA >60 ML/MIN 03/31/2013 TSH 0491841 TSH 2.689 uIU/ML 03/31/2013 LIPID GRP 6795048 HDL TE ST 63 MG/DL 03/31/2013 LIPID GRP 9538966 TRIG 157 MG/DL 03/31/2013 LIPID GRP 9367839 TEST L DL 98 MG/DL 03/31/2013 LIPID GRP 4669608 CHOL 192 MG/DL 03/31/2013 LIPID GRP RCHOL/ HDL 3.05 RATIO 03/31/2013 FREE T4 3348416 FREE T4 1.19 NG/DL 03/31/2013 CHEM 14 1553225 AST 16 U/L 03/31/2013 CHEM 14 5568096 ALT 12 IU/L 03/31/2013 CHEM 14 6553218 BUN 17 MG/DL 03/31/2013 CHEM 14 1239533 ALBUMIN 4.5 GM/DL 03/31/2013 CHEM 14 0458650 CHLORIDE 98 MMOL/L 03/31/2013 CHEM 14 7275344 BILI TOT 0.7 MG/DL 03/31/2013 CHEM 14 0947450 ALK PHOS 53 U/L 03/31/2013 CHEM 14 5789948 SODIUM 137 MMOL/L 03/31/2013 CHEM 14 9814904 CREATINI NE 0.66 MG/DL 03/31/2013 CHEM 14 1242339 CALCIUM 9.6 MG/DL 03/31/2013 CHEM 14 2738969 POTASSIUM 4.2 MMOL/L 03/31/2013 CHEM 14 1398999 PROT TOT 6.7 GM/DL 03/31/2013 CHEM 14 1863874 GLUCOSE 101 MG/DL 03/31/2013 CHEM 14 0672380 BICARB 33 MMOL/L 03/31/2013 CHEM 14 7124373 ANION GAP 6 MEQ/L 03/31/2013 CBC 2294693 WBC 7.5 10e9/L 03/31/2013 CBC 3013803 RBC 4.39 10e12/L 03/31/2013 CBC 8229854 HGB 13.0 g/dL 03/31/2013 CBC 2942462 HCT DET 40.2 % 03/31/2013 CBC 5746790 MCV 91.6 fL 03/31/2013 CBC 3825294 MCH 29.6 pg 03/31/2013 CBC 0608065 MCHC 32.3 g/dL 03/31/2013 CBC 9419621 PLT 305 10e9/L 03/31/2013 CBC 9681319 MPV 10.4 fL 03/31/2013 CBC 1768463 NNEKA % 56.8 % 03/31/2013 CBC 6491730 LY % 30.3 % 03/31/2013 CBC 8725962 MON % 9.8 % 03/31/2013 CBC 9372205 EOS % 2.3 % 03/31/2013 CBC 9663794 BASO % 0.8 % 03/31/2013 CBC 6024949 RDW 13.2 % 03/31/2013 CBC 9942156 ABS NNEKA 4.26 10e9/L 03/31/2013 CBC 3894799 ABS LYMPH 2.27 10e9/L 03/31/2013 CBC 1543718 ABS MONO 0.74 10e9/L 03/31/2013 CBC 4686823 ABS EOS 0.17 10e9/L 03/31/2013 CBC 3439303 ABS BASO 0.06 10e9/L 03/31/2013 CBC 7769327 RDW-SD 43.2 fL 03/31/2013 LIPID GRP HDL TE ST 49 MG/DL 09/11/2012 LIPID GRP TRIG 134 MG/DL 09/11/2012 LIPID GRP TEST L DL 81 MG/DL 09/11/2012 LIPID GRP CHOL 157 MG/DL 09/11/2012 LIPID GRP RCHOL/ HDL 3.20 RATIO 09/11/2012 TSH 1578407 TSH 2.118 uIU/ML 09/11/2012 CBC 3049587 WBC 7.5 10e9/L 09/11/2012 CBC 5249566 RBC 3.99 10e12/L 09/11/2012 CBC 3572143 HGB 11.7 g/dL 09/11/2012 CBC 7149923 HCT DET 37.7 % 09/11/2012 CBC 7261358 MCV 94.5 fL 09/11/2012 CBC 5627765 MCH 29.3 pg 09/11/2012 CBC 5597908 MCHC 31.0 g/dL 09/11/2012 CBC 2826579 PLT 384 10e9/L 09/11/2012 CBC 3980631 MPV 11.0 fL 09/11/2012 CBC 8554966 NNEKA % 51.7 % 09/11/2012 CBC 3337998 LY % 35.2 % 09/11/2012 CBC 8832837 MON % 10.4 % 09/11/2012 CBC 3687354 EOS % 2.3 % 09/11/2012 CBC 8407150 BASO % 0.4 % 09/11/2012 CBC 9529544 RDW 14.2 % 09/11/2012 CBC 8595231 ABS NNEKA 3.88 10e9/L 09/11/2012 CBC 7041806 ABS LYMPH 2.64 10e9/L 09/11/2012 CBC 9901493 ABS MONO 0.78 10e9/L 09/11/2012 CBC 1923629 ABS EOS 0.17 10e9/L 09/11/2012 CBC 2914310 ABS BASO 0.03 10e9/L 09/11/2012 CBC 5067211 RDW-SD 47.1 fL 09/11/2012 CHEM 14 1725408 AST 16 U/L 09/11/2012 CHEM 14 0509536 ALT 15 IU/L 09/11/2012 CHEM 14 4017769 BUN 11 MG/DL 09/11/2012 CHEM 14 0186268 ALBUMIN 4.2 GM/DL 09/11/2012 CHEM 14 3666664 CHLORIDE 101 MMOL/L 09/11/2012 CHEM 14 0104134 BILI TOT 0.8 MG/DL 09/11/2012 CHEM 14 4821596 ALK PHOS 57 U/L 09/11/2012 CHEM 14 1728827 SODIUM 141 MMOL/L 09/11/2012 CHEM 14 0519595 CREATINI NE 0.62 MG/DL 09/11/2012 CHEM 14 2790913 CALCIUM 9.5 MG/DL 09/11/2012 CHEM 14 3786743 POTASSIUM 4.7 MMOL/L 09/11/2012 CHEM 14 6272711 PROT TOT 6.6 GM/DL 09/11/2012 CHEM 14 0284783 GLUCOSE 90 MG/DL 09/11/2012 CHEM 14 0548043 BICARB 32 MMOL/L 09/11/2012 CHEM 14 3360491 ANION GAP 8 MEQ/L 09/11/2012 A1C HPLC 6117396 A1C HPLC 21665-1 4.5 % 09/11/2012 GFR CALC 8828898 GFR AA >60 ML/MIN 09/11/2012 GFR CALC 4402828 GFR NON -AA >60 ML/MIN 09/11/2012 FREE T4 0852397 FREE T4 1.30 NG/DL 09/11/2012 BMP GLUCOSE 93 MG/DL 04/16/2012 BMP CREATININE 0.64 MG/DL 04/16/2012 BMP BUN 12 MG/DL 04/16/2012 BMP 1109898 SODIUM 139 MMOL/L 04/16/2012 BMP 1280549 POTASSIUM 4.1 MMOL/L 04/16/2012 BMP CHLORIDE 99 MMOL/L 04/16/2012 BMP BICARB 32 MMOL/L 04/16/2012 BMP 9681120 ANION GAP 8 MEQ/L 04/16/2012 BMP 7595206 CALCIUM 9.8 MG/DL 04/16/2012 CBC 3730309 WBC 8.5 10e9/L 04/16/2012 CBC 4263001 RBC 3.98 10e12/L 04/16/2012 CBC 5757156 HGB 11.5 g/dL 04/16/2012 CBC 7940021 HCT DET 36.7 % 04/16/2012 CBC 0740196 MCV 92.2 fL 04/16/2012 CBC 2725431 MCH 28.9 pg 04/16/2012 CBC 3223638 MCHC 31.3 g/dL 04/16/2012 CBC 9129300 PLT 321 10e9/L 04/16/2012 CBC 5276012 MPV 10.2 fL 04/16/2012 CBC 2824239 NNEKA % 64.3 % 04/16/2012 CBC 9285611 LY % 24.3 % 04/16/2012 CBC 9447165 MON % 9.0 % 04/16/2012 CBC 6612713 EOS % 1.9 % 04/16/2012 CBC 9258328 BASO % 0.5 % 04/16/2012 CBC 0584917 RDW 13.7 % 04/16/2012 CBC 1461002 ABS NNEKA 5.47 10e9/L 04/16/2012 CBC 6685338 ABS LYMPH 2.07 10e9/L 04/16/2012 CBC 4274189 ABS MONO 0.77 10e9/L 04/16/2012 CBC 8764243 ABS EOS 0.16 10e9/L 04/16/2012 CBC 6392831 ABS BASO 0.04 10e9/L 04/16/2012 CBC 2705065 RDW-SD 44.6 fL 04/16/2012 GFR CALC 9443517 GFR AA >60 ML/MIN 04/16/2012 GFR CALC 3642518 GFR NON -AA >60 ML/MIN 04/16/2012 URINALYSIS NONAUTO W/O SCOPE 36784 Specific [place] 1.015 DateTime(Free Text in Aprima) URINALYSIS NONAUTO W/O SCOPE 74472 PH 6.0 DateTime(Free Jim t in Aprima) URINALYSIS NONAUTO W/O SCOPE 52362 GLUCOSE neg DateTime(Free Jim t in Apr[employer]) URINALYSIS NONAUTO W/O SCOPE 82578 Protein neg DateTime(Free Jim t in Apr) URINALYSIS NONAUTO W/O SCOPE 30648 Blood 1+ DateTime(Free Text in Apr) URINALYSIS NONAUTO W/O SCOPE 30386 Bilirubin neg DateTime(Free Jim t in Apr) URINALYSIS NONAUTO W/O SCOPE 63445 Ketones neg DateTime(Free Jim t in Apr) URINALYSIS NONAUTO W/O SCOPE 30967 Urobilinogen neg DateTime(Free Text in Apr) URINALYSIS NONAUTO W/O SCOPE 94579 Nitrite positive DateTime(Madi e Text in ) URINALYSIS NONAUTO W/O SCOPE 64282 Leukocytes 1+ DateTime(Free Text in ) UA 06147 [place] 1.015 DateTime(Free Text in ) UA 09944 PH 5 DateTime(Free Text in ) UA 18006 GLUCOSE neg DateTime(Free Text in ) UA 11452 Protein neg DateTime(Free Text in Apr ) UA 24453 Blood neg DateTime(Free Text in Apr ) UA 07010 Bilirubin neg DateTime(Free Text in Apr ) UA 48499 Ketones neg DateTime(Free Text in ) UA 57696 Urobilinogen neg DateTime(Free Text in ) UA 05767 Nitrite neg DateTime(Free Text in ) UA 40728 Leukocytes neg DateTime(Free Text in ) URINALYSIS NONAUTO W/O SCOPE 55858 Specific [place] 1.010 DateTime(Free Text in Apr) URINALYSIS NONAUTO W/O SCOPE 85083 PH 5.0 DateTime(Free Jim t in Apr) URINALYSIS NONAUTO W/O SCOPE 93072 GLUCOSE NEG DateTime(Free Jim t in Apr) URINALYSIS NONAUTO W/O SCOPE 65742 Protein NEG DateTime(Free Jim t in Apr) URINALYSIS NONAUTO W/O SCOPE 13286 Blood NEG DateTime(Free Jim t in Apr) URINALYSIS NONAUTO W/O SCOPE 04246 Bilirubin NEG DateTime(Free Jim t in Apr) URINALYSIS NONAUTO W/O SCOPE 31543 Ketones NEG DateTime(Free Jim t in Apr) URINALYSIS NONAUTO W/O SCOPE 70458 Urobilinogen NEG DateTime(Free Text in [employer]) URINALYSIS NONAUTO W/O SCOPE 28294 Nitrite NEG DateTime(Free Jim t in Apr[employer]) URINALYSIS NONAUTO W/O SCOPE 95053 Leukocytes ++ DateTime(Free Text in Apr[employer]) URINALYSIS NONAUTO W/O SCOPE 39454 [place] 1.010 DateTime(Free Text in Apr[employer]) URINALYSIS NONAUTO W/O SCOPE 53935 PH 6.0 DateTime(Free Jim t in Aprima) URINALYSIS NONAUTO W/O SCOPE 60033 GLUCOSE NEG DateTime(Free Jim t in Apr[employer]) URINALYSIS NONAUTO W/O SCOPE 24498 Protein NEG DateTime(Free Jim t in Apr[employer]) URINALYSIS NONAUTO W/O SCOPE 19373 Blood NEG DateTime(Free Jim t in Apr[employer]) URINALYSIS NONAUTO W/O SCOPE 92883 Bilirubin NEG DateTime(Free Jim t in Apr[employer]) URINALYSIS NONAUTO W/O SCOPE 48140 Ketones NEG DateTime(Free Jim t in Apr[employer]) URINALYSIS NONAUTO W/O SCOPE 57676 Urobilinogen NEG DateTime(Free Text in Apr[employer]) URINALYSIS NONAUTO W/O SCOPE 29087 Nitrite NEG DateTime(Free Jim t in Apr[employer]) URINALYSIS NONAUTO W/O SCOPE 70863 Leukocytes NEG DateTime(Free Text in Apr[employer]) URINALYSIS NONAUTO W/O SCOPE 46611 [place] 1.010 DateTime(Free Text in Apr[employer]) URINALYSIS NONAUTO W/O SCOPE 40343 PH 5 DateTime(Free Text in Apr[employer]) URINALYSIS NONAUTO W/O SCOPE 09009 GLUCOSE neg DateTime(Free Jim t in Apr[employer]) URINALYSIS NONAUTO W/O SCOPE 26505 Protein neg DateTime(Free Jim t in Apr[employer]) URINALYSIS NONAUTO W/O SCOPE 21252 Blood neg DateTime(Free Jim t in Apr[employer]) URINALYSIS NONAUTO W/O SCOPE 40624 Bilirubin neg DateTime(Free Jim t in Apr[employer]) URINALYSIS NONAUTO W/O SCOPE 56201 Ketones neg DateTime(Free Jim t in Apr[employer]) URINALYSIS NONAUTO W/O SCOPE 65146 Urobilinogen neg DateTime(Free Text in Apr[employer]) URINALYSIS NONAUTO W/O SCOPE 01021 Nitrite neg DateTime(Free Jim t in Apr[employer]) URINALYSIS NONAUTO W/O SCOPE 01491 Leukocytes 1+ DateTime(Free Text in Apr[employer]) URINALYSIS NONAUTO W/O SCOPE 76316 [place] 1.015 DateTime(Free Text in Apr[employer]) URINALYSIS NONAUTO W/O SCOPE 31034 PH 5 DateTime(Free Text in Apr[employer]) URINALYSIS NONAUTO W/O SCOPE 42364 GLUCOSE neg DateTime(Free Jim t in Apr[employer]) URINALYSIS NONAUTO W/O SCOPE 47036 Protein neg DateTime(Free Jim t in Apr[employer]) URINALYSIS NONAUTO W/O SCOPE 72210 Blood neg DateTime(Free Jim t in Apr[employer]) URINALYSIS NONAUTO W/O SCOPE 99744 Bilirubin neg DateTime(Free Jim t in Apr[employer]) URINALYSIS NONAUTO W/O SCOPE 74768 Ketones neg DateTime(Free Jim t in Apr[employer]) URINALYSIS NONAUTO W/O SCOPE 13834 Urobilinogen neg DateTime(Free Text in Apr[employer]) URINALYSIS NONAUTO W/O SCOPE 24521 Nitrite neg DateTime(Free Jim t in Aprima) URINALYSIS NONAUTO W/O SCOPE 32521 Leukocytes neg DateTime(Free Text in Apr[employer]) URINALYSIS NONAUTO W/O SCOPE 77037 [place] 1.015 DateTime(Free Text in Aprima) URINALYSIS NONAUTO W/O SCOPE 40091 PH 7 DateTime(Free Text in Apr[employer]) URINALYSIS NONAUTO W/O SCOPE 69850 GLUCOSE DateTime(Free Text i n Apr[employer]) URINALYSIS NONAUTO W/O SCOPE 32584 Protein DateTime(Free Text i n Apr[employer]) URINALYSIS NONAUTO W/O SCOPE 99434 Blood DateTime(Free Text i n Apr[employer]) URINALYSIS NONAUTO W/O SCOPE 82522 Bilirubin DateTime(Free Text i n Apr[employer]) URINALYSIS NONAUTO W/O SCOPE 71328 Ketones DateTime(Free Text i n Apr[employer]) URINALYSIS NONAUTO W/O SCOPE 74891 Urobilinogen DateTime(Free Text in Apr[employer]) URINALYSIS NONAUTO W/O SCOPE 99964 Nitrite DateTime(Free Text i n ) URINALYSIS NONAUTO W/O SCOPE 34473 Leukocytes DateTime(Fr ee Text in ) UA 76160 Specific [place] 6 DateTime(Free Text in ) UA 08264 PH 1.020 DateTime(Free Text in ) UA 49149 GLUCOSE N DateTime(Free Text in ) UA 67353 Protein N DateTime(Free Text in ) UA 14222 Blood N DateTime(Free Text in ) UA 48007 Bilirubin N DateTime(Free Text in ) UA 97036 Ketones N DateTime(Free Text in ) UA 05652 Urobilinogen N DateTime(Free Text in ) UA 32629 Nitrite POSITIVE DateTime(Free Text in ma) UA 54222 Leukocytes SMALL DateTime(Free Text in ) Review [...] No alteration of consciousness 02/02/2017 Psychiatric anxiety 04/2017 Constitutional recent illness 01/15/2017 Constitutional No [...] sores Musculoskeletal No myalgias 10/28/2012 Psychiatric anxiety 0311/2012 Psychiatric depression 0 10/28/2012 Constitutional No chills [...] Exam - ENT Respiratory auscultation Diffuse: diminished 12/2017 None Full Exam - ENT Constitutional general [...] happy 05/27/2012 None Full Exam - General 1995 Psychiatric mood and affect Overall: normal mood [...] nourished 04/19/2011 None Procedures Procedure Codes Date DRAIN/INJECT JOINT/B URSA CPT-4: 67889 03/11/2019 TRIAMCINOLONE ACET I [place] NOS CPT-4: J3301 03/11/2019 PPPS, SUBSEQ VISIT CPT- 4: G0439 04/25/2018 TRIAMCINOLONE ACET I [place] NOS CPT-4: J3301 08/09/2017 ROCEPHIN, PER 250 MG CPT-4: J0696 08/09/2017 PPPS, SUBSEQ VISIT CPT- 4: G0439 04/12/2017 DEPRESSION SCREEN AN NUAL CPT-4: G0444 04/12/2017 FALL RISK ASSESSMENT DOCD CPT-4: 3288F 04/12/2017 THER/PROPH/DIAG INJ SC/IM CPT-4: 90331 01/04/2017 TRIAMCINOLONE ACET I [place] NOS CPT-4: J3301 01/04/2017 TRIAMCINOLONE ACET I [place] NOS CPT-4: J3301 08/23/2016 THER/PROPH/DIAG INJ SC/IM CPT-4: 69818 08/23/2016 ROUTINE VENIPUNCTURE CPT-4: 54910 08/28/2014 ADMIN INFLUENZA VIRU S VAC Assigned to/Yancy Howell CPT-4: [id number] 05/20/2014 FLU VAC NO PRSV 4 VA L 3 YRS+ CPT-4: 20205 05/20/2014 URINALYSIS NONAUTO W /O SCOPE CPT-4: 23495 05/07/2014 ROCEPHIN, PER 250 MG CPT-4: J0696 05/07/2014 ROUTINE VENIPUNCTURE CPT-4: 40197 04/14/2014 DESTRUCT PREMALG LESION CPT-4: 15726 01/27/2014 DESTRUCT PREMALG LES 2-14 CPT-4: 88811 01/27/2014 ROCEPHIN, PER 250 MG CPT-4: J0696 12/26/2013 TRIAMCINOLONE ACET I [place] NOS CPT-4: J3301 12/26/2013 TRIAMCINOLONE ACET I [place] NOS CPT-4: J3301 11/12/2013 ROUTINE VENIPUNCTURE CPT-4: 96398 11/12/2013 ROCEPHIN, PER 250 MG CPT-4: J0696 10/09/2013 ROUTINE VENIPUNCTURE CPT-4: 34831 03/31/2013 URINALYSIS NONAUTO W /O SCOPE CPT-4: 86575 03/21/2013 TRIAMCINOLONE ACET I [place] NOS CPT-4: J3301 11/21/2012 URINALYSIS NONAUTO W /O SCOPE CPT-4: 41973 09/30/2012 URINALYSIS NONAUTO W /O SCOPE CPT-4: 35956 09/11/2012 ROUTINE VENIPUNCTURE CPT-4: 01088 09/11/2012 PRESCRIP TRANSMIT A ERX SY CPT-4: G8553 08/05/2012 ADMIN INFLUENZA VIRU S VAC CPT-4: G0008 05/03/2012 FLULAVAL VACC, 3 YRS & >, IM CPT-4: Q2036 05/03/2012 EXC TR-EXT B9+ANA 0 .6-1 CM CPT-4: 49725 04/23/2012 ROUTINE VENIPUNCTURE CPT-4: 81475 04/16/2012 ROUTINE VENIPUNCTURE CPT-4: 37282 12/21/2011 PRESCRIP TRANSMIT A ERX SY CPT-4: G8553 12/04/2011 URINALYSIS NONAUTO W /O SCOPE CPT-4: 54329 12/01/2011 URINALYSIS NONAUTO W /O SCOPE CPT-4: 17998 11/20/2011 PRESCRIP TRANSMIT A ERX SY CPT-4: G8553 09/20/2011 URINALYSIS NONAUTO W /O SCOPE CPT-4: 95182 09/06/2011 ROCEPHIN, PER 250 MG CPT-4: J0696 08/30/2011 THER/PROPH/DIAG INJ SC/IM CPT-4: 25823 08/30/2011 ROUTINE VENIPUNCTURE CPT-4: 38248 08/30/2011 PRESCRIP TRANSMIT A ERX SY CPT-4: G8553 08/30/2011 ROCEPHIN, PER 250 MG CPT-4: J0696 08/23/2011 THER/PROPH/DIAG INJ SC/IM CPT-4: 92557 08/23/2011 URINALYSIS NONAUTO W /O SCOPE CPT-4: 72761 08/23/2011 PRESCRIP TRANSMIT A ERX SY CPT-4: G8553 08/23/2011 ROUTINE VENIPUNCTURE CPT-4: 49336 05/04/2011 PRESCRIP TRANSMIT A ERX SY CPT-4: G8553 05/04/2011 TRIAMCINOLONE ACET I [place] NOS CPT-4: J3301 04/19/2011 THER/PROPH/DIAG INJ SC/IM CPT-4: 70567 04/19/2011 PRESCRIP TRANSMIT A ERX SY CPT-4: G8553 04/19/2011 Vital Signs Date Vital 05/02/2019 BMI: 40.0 Code: 34471-4 Height: 5'3" Weight: 226 lbs 04/01/2019 Blood Pressure 1: 128/80 Code: 8480-6 BMI: 39.1 Code: 50413-7 Heart Rate 1: 87 bpm Height: 5'3" SpO2: 94% Weight: 221 lbs 03/11/2019 Blood Pressure 1: 142/80 Code: 8480-6 BMI: 40.4 Code: 90346-0 Heart Rate 1: 72 bpm Height: 5'3" SpO2: 95% Weight: 228 lbs 09/03/2018 Blood Pressure 1: 134/76 Code: 8480-6 BMI: 40.0 Code: 28814-2 Heart Rate 1: 83 bpm Height: 5'3" SpO2: 93% Weight: 226 lbs 05/29/2018 Blood Pressure 1: 126/66 Code: 8480-6 BMI: 40.2 Code: 65029-6 Heart Rate 1: 108 bpm Height: 5'3" SpO2: 97% Weight: 227 lbs 04/25/2018 Blood Pressure 1: 122/70 Code: 8480-6 BMI: 41.3 Code: 39180-1 Heart Rate 1: 84 bpm Height: 5'3" SpO2: 97% Waist Measure (cm): 109 cm Weight: 233 lbs 02/06/2018 Heigh t: Weight: 01/23/2018 Blood Pressure 1: 132/68 Code: 8480-6 BMI: 40.2 Code: 72863-1 Heart Rate 1: 74 bpm Height: 5'3" SpO2: 97% Weight: 227 lbs 09/26/2017 Blood Pressure 1: 138/84 Code: 8480-6 Heart Rate 1: 62 bpm Height: 5'3" SpO2: 96% Weight: 09/12/2017 Blood Pressure 1: 142/62 Code: 8480-6 BMI: 39.1 Code: 36179-1 Heart Rate 1: 49 bpm Height: 5'3" SpO2: 98% Weight: 221 lbs 08/31/2017 Blood Pressure 1: 132/74 Code: 8480-6 Heart Rate 1: 79 bpm Height: 5'3" SpO2: 94% Temperature: 36.7 (C ) / 98.0 (F) 08/09/2017 Blood Pressure 1: 132/82 Code: 8480-6 BMI: 39.3 Code: 44531-1 Heart Rate 1: 85 bpm Height: 5'3" SpO2: 98% Temperature: 36.6 (C ) / 97.8 (F) Weight: 222 lbs 05/07/2017 Blood Pressure 1: 118/70 Code: 8480-6 BMI: 38.8 Code: 78009-2 Heart Rate 1: 58 bpm Height: 5'3" SpO2: 97% Weight: 219 lbs 04/12/2017 Blood Pressure 1: 140/72 Code: 8480-6 BMI: 38.9 Code: 41082-1 Heart Rate 1: 78 bpm Height: 5'4" SpO2: 98% Waist Measure (cm): 107 cm Weight: 224 lbs 02/15/2017 Blood Pressure 1: 138/70 Code: 8480-6 Heart Rate 1: 78 bpm SpO2: 91% 02/05/2017 Blood Pressure 1: 146/74 Code: 8480-6 Heart Rate 1: 52 bpm SpO2: 95%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 Ordering Provider Patient informed. Completed 06/18/2018 Visit Plan: Hypertension - well con trolled - continue with current medications, continue with [...] months based on previous levels of control. H yperlipidemia - pt has been counseled about appropriate [...] back. 05/29/2018 Appointment: Con[facility]pción Flanagan [phone] [place] (15 min) Moderate 05/29/2018 Patient Education: Patient Medication Summary Completed 05/29/2018 Care Plan: Referral Order SNOMED-CT : [id number] Pending 05/29/2018 Visit Plan: Wound Instructions - Pt was instructed to keep the wound clean, call if redness, pustular drainage, or any other acute concerns. 04/30/2018 Appointment: Nurse Visit 04/30/2018 Patient Education: Patient Medication Summary Completed 04/30/2018 Visit Plan: Medicare Exam - today w e discussed the patients past history, immunizations, preventative [...] hearing. The wax was removed by the pra ctitioner due to the wax being more complicated to remove, and staff was needed to assist the removal of the wax by holding the ear, and keeping patient stabilized during the removal process. 02/06/2018 Appointment: Hayley London WPtel: [phone] [facility] (15 min) Moderate 02/06/2018 Patient Education: Patient Medication Summary Completed 02/06/2018 Visit Plan: Hypertension - well con trolled - continue with current medications, continue with [...] months based on previous levels of control. H yperlipidemia - pt has been counseled about appropriate [...] normal liver response to medications. 01/23/2018 Appointment: Conecpción Flanagan WPtel: [phone] [facility] (15 min) Moderate 01/23/2018 Patient Education: Patient Medication Summary Completed 01/23/2018 Visit Plan: Cough - improved - sinu sitis resolved. 09/26/2017 Appointment: Concepción Flanagan WPtel: [phone] [facility] (15 min) Moderate 09/26/2017 Patient Education: Patient Medication Summary Completed 09/26/2017 Visit Plan: Acute Maxillary Sinusit is - if not improving - pt would like to see an ENT - Hortensia Tompkins in [place]. Treatment as follows: cefdinir - antibiotic twice [...] hydrocodone. 09/12/2017 Appointment: Concepción Flanagan WPtel: [phone] [facility] (15 min) Moderate 09/12/2017 Patient Education: Patient Medication Summary Completed 09/12/2017 Visit Plan: Sinusitis - Pt has acut e infection - pain in face, maxillary region, Pt informed to use decongestant, RX given to patient, sinus rinses also recommended. Call if symptoms do not show improvement. Allerg ies - chronic - recommended pt to use [...] spray. 08/31/2017 Appointment: [phone] (30 min) Complex 08/31/2017 Patient Education: Patient Medication Summary Completed 08/31/2017 Visit Plan: URI - Pt advised to inc rease fluids, vitamin C. Discussed natural and expected course of this diagnosis and need to alert me if symptoms do not follow expected course, or if any worse. RX sent to patient's pharmacy. 08/09/2017 Appointment: Chaparrita Arrieta WPtel: [phone] [facility] (30 min) Complex 08/09/2017 Patient Education: Patient Medication Summary Completed 08/09/2017 Visit Plan: Hypertension - well con trolled - continue with current medications, continue with [...] hydrocodone. 05/07/2017 Appointment: Con[facility]pción Flanagan [phone] (15 min) Moderate 05/07/2017 Patient Education: Patient Medication Summary Completed 05/07/2017 Patient Education: Obesity Completed 05/07/2017 Visit Plan: Medicare Exam - today w e discussed the patients past history, immunizations, preventative [...] 04/12/2017 Visit Plan: Medicare Exam - today w e discussed the patients past history, immunizations, preventative [...] care surrogate. 04/12/2017 Appointment: Hayley London WPtel: [facility] [facility] - Annual Wellness Visit 04/12/2017 Patient Education: Patient Medication Summary Completed 04/12/2017 Appointment: Nurse Visit 02/15/2017 Patient Education: Patient Medication Summary Completed 02/15/2017 Visit Plan: Xwqpi-ieyngfoccv-tbieh zpack when finished with cipro-follow up chest [...] if needed Edema-take lasix every day-follow up Sunday02/02/2017 Appointment: Chaparrita Arrieta WPtel[phone] [facility] (15 min) Moderate 02/02/2017 Patient Education: Patient Medication Summary Completed 02/02/2017 Patient Education: Obesity Completed 02/02/2017 Visit Plan: Sinusitis - Pt has acut e infection - pain in face, maxillary region, Pt informed to use decongestant, RX given to patient, sinus rinses also recommended. Call if symptoms do not show improvement. 01/15/2017 Appointment: Chaparrita Arrieta WPtel: [phone] [phone] (10 min) Simple 01/15/2017 Patient Education: Patient Medication Summary Completed 01/15/2017 Visit Plan: Hypertension - well con trolled - continue with current medications, continue with [...] today 01/04/2017 Appointment: Concepción Flanagan [facility]Ptel[phone] (15 min) Moderate 01/04/2017 Patient Education: Patient Medication Summary Completed 01/04/2017 Visit Plan: Hypertension - well con trolled - continue with current medications, continue with [...] with the medication (lexapro). 09/07/2016 Appointment: Concepción Flaangan [facility]Ptel[phone] (30 min) Complex 09/07/2016 Patient Education: Patient Medication Summary Completed 09/07/2016 Patient Education: Obesity Completed 09/07/2016 Appointment: Injection 08/23/2016 Patient Education: Patient Medication Summary Completed 08/23/2016 Visit Plan: Hypertension - well con trolled - continue with current medications, continue with no added salt diet. Pt has been encouraged to exercise daily. The pt has been advised to call the office if there are any acute concerns about change in blood pressure readings at home. 07/06/2016 Appointment: Cocnepción Flanagan WPtel: [phone] [facility] (15 min) Moderate 07/06/2016 Patient Education: Patient Medication Summary Completed 07/06/2016 Patient Education: Obesity Completed 07/06/2016 Appointment: Nurse Visit 06/16/2016 Patient Education: Patient Medication Summary Completed 06/16/2016 Visit Plan: Hypertension - well con trolled - continue with current medications, continue with [...] DAILY 06/08/2016 Appointment: Concepción Flanagan WPtel: [phone] [facility] (15 min) Moderate 06/08/2016 Patient Education: Patient Medication Summary Completed 06/08/2016 Visit Plan: continue with benicar 4 0mg, and increase her diltiazem to 240mg daily 04/17/2016 Appointment: Nurse Visit 04/17/2016 Patient Education: Patient Medication Summary Completed 04/17/2016 Patient Education: Hypertension Completed 04/17/2016 Visit Plan: Hypertension - well con trolled - continue with current medications, continue with [...] edema. 04/06/2016 Appointment: Concepción Flanagan [facility]Ptel[phone] (15 min) Moderate 04/06/2016 Patient Education: Patient Medication Summary Completed 04/06/2016 Patient Education: Obesity Completed 04/06/2016 Patient Education: Hypertension Completed 04/06/2016 Appointment: Nurse Visit 03/10/2016 Patient Education: Patient Medication Summary Completed 03/10/2016 Visit Plan: Hypertension - uncontro lled - the patient's medications have been modified as documented in the visit note. The patient has been counseled to cut back on salt in diet for a no added salt diet, low fat d iet, start an exercise program with low weight [...] Completed 03/09/2016 Visit Plan: Hypertension - well con trolled - continue with current medications, continue with [...] months based on previous levels of control. Nolan rapp has nocturnal hypoxemia - has been wearing oxygen at 2 liters nasal cannula for years and has recent gotten a letter that she was being denied her oxygen. She needs oxygen and my office sent the letter and office note to her oxygen supplier. I will order an overnight oxygen for Mikala. 01/18/2016 Appointment: Concepción Flanagan WPtel: [address] [place], [place] [address] (15 min) Moderate 01/18/2016 Patient Education: Patient Medication Summary Completed 01/18/2016 Patient Education: Obesity Completed 01/18/2016 Visit Plan: Hypertension - well con trolled - continue with current medications, continue with [...] today's note to [employer] for re- certification of oxygen. 09/09/2015 Visit Plan: Hypertension - well con trolled - continue with current medications, continue with [...] today's note to [employer] for re- certification of oxygen. 09/09/2015 Appointment: (15 min) Moderate 09/09/2015 Patient Education: Patient Medication Summary Completed 09/09/2015 Patient Education: Hypertension Completed 09/09/2015 Visit Plan: Hypertension - well con trolled - continue with current medications, continue with [...] discuss with her son who is a [employer] - and consider re-evaluation for nasal pillows with her cpap since she could not tolerate a face mask cpap in the past. 12/25/2014 Appointment: Concepción Flanagan [facility]Ptel[phone] Follow up 12/25/2014 Patient Education: Patient Medication Summary Completed 12/25/2014 Patient Education: Hypertension Completed 12/25/2014 Visit Plan: Hypertension - well con trolled - continue with current medications, continue with no added salt diet. Pt has been encouraged to exercise daily. The pt has been advised to call the office if there are any acute concerns about change in blood pressure readings at home. 10/13/2014 Appointment: Concepción Flanagan [facility]Ptel[phone] Follow up 10/13/2014 Patient Education: Patient Medication Summary Completed 10/13/2014 Patient Education: Hypertension Completed 10/13/2014 Visit Plan: Hypertension - well con trolled - continue with current medications, continue with [...] her . 08/28/2014 Appointment: Concepción Flanagan WPtel: [facility] Follow up 08/28/2014 Patient Education: Patient Medication Summary Completed 08/28/2014 Patient Education: Hypertension Completed 08/28/2014 Appointment: Nurse Visit 08/07/2014 Patient Education: Patient Medication Summary Completed 08/07/2014 Patient Education: Hypertension Completed 08/07/2014 Patient Education: Patient Medication Summary Completed 05/20/2014 Visit Plan: Sinusitis - Pt has acut e infection - pain in face, maxillary region, [...] encouraged to exercise daily. The pt has b een advised to call the office if there [...] start on meloxicam, monitor creatinine. 04/16/2014 Appointment: PanchitoConcepción wolff WPtel: [phone] [facility] Follow up 04/16/2014 Patient Education: Patient Medication Summary Completed 04/16/2014 Patient Education: Patient Medication Summary Completed 04/14/2014 Patient Education: Hypertension Completed 04/14/2014 Visit Plan: Wound Instructions - Pt was instruced to keep the wound clean, wash with antibacterial soap, use triple antibiotic ointment, call if redness, pustular drainage, or any other acute conerns. 01/27/2014 Appointment: Concepción Flanagan WPtel[phone] [facility] Procedure 01/27/2014 Patient Education: Patient Medication Summary Completed 01/27/2014 Visit Plan: Hypertension - well con trolled - continue with current medications, continue with [...] out to do home eval. 01/21/2014 Appointment: PanchitoDemi wolffy WPtel: [facility] Follow up 01/21/2014 Patient Education: Patient Medication Summary Completed 01/21/2014 Patient Education: Hypertension Completed 01/21/2014 Visit Plan: Hypotension - Bradycard ia - pt to stop her metroprolol - check bp and heart rate twice daily and monitor symptoms. Call if bp uncontrolled- or heart rate to elevated. 01/07/2014 Appointment: Panchito Concepción WPtel: [facility] Follow up 01/07/2014 Patient Education: Hypertension Completed 01/07/2014 Patient Education: Patient Medication Summary Completed 01/07/2014 Visit Plan: URI - Pt advised to inc rease fluids, vitamin C. Discussed natural and expected course of this diagnosis and need to alert me if symtpoms do not follow expected course, or if any worse. RX sent to patient's pharmacy. 12/26/2013 Patient Education: Patient Medication Summary Completed 12/26/2013 Visit Plan: Allergies - chronic - r ecommended pt to use allergy medication as prescribed. Pt has been counseled as the the appropriate use of the medication. Pt to call if allergy symptoms are not controlled with t he medication. Kenalog injection today in the office. Thrush-RX for nystatin swish and swallow 11/12/2013 Appointment: Chaparrita Arrieta WPtel: [phone] Sick 11/12/2013 Patient Education: Patient Medication Summary Completed 11/12/2013 Patient Education: Hypertension Completed 11/12/2013 Visit Plan: Sinusitis - Pt has acut e infection - pain in face, maxillary region, Pt informed to use decongestant, RX given to patient, sinus rinses also recommended. Call if symptoms do not show improvement. 10/09/2013 Appointment: Chaparrita Arrieta WPtel: [phone] Sick 10/09/2013 Patient Education: Patient Medication Summary Completed 10/09/2013 Visit Plan: Hypertension - well con trolled - continue with current medications, continue with no added salt diet. Pt has been encouraged to exercise daily. The pt has been advised to call the office if there are any acute concerns about change in blood pressure readings at home. Dysuria - check UA 04/03/2013 Appointment: Concepción Flanagan [facility]Ptel[phone] Follow up 04/03/2013 Patient Education: Patient Medication Summary Completed 04/03/2013 Patient Education: Hypertension Completed 04/03/2013 Patient Education: Patient Medication Summary Completed 03/31/2013 Patient Education: Hypertension Completed 03/31/2013 Visit Plan: ua performed - sent for culture if indicated. 03/21/2013 Appointment: Concepción Flanagan WPtel: [facility] Lab Draw 03/21/2013 Patient Education: Patient Medication Summary Completed 03/21/2013 Visit Plan: Hypertension - well con trolled - continue with current medications, continue with [...] edema. 01/06/2013 Appointment: Concepción Flanagan WPtel[phone] Follow up 01/06/2013 Patient Education: Patient Medication Summary Completed 01/06/2013 Patient Education: Hypertension Completed 01/06/2013 Visit Plan: Myzkotmby-Uhlcuy-mtmauu ms not well controlled- KENALOG injection today in the office-use albuterol as needed. Instructed patient to continue with singulair daily and call if symptoms do not improve, or worsen. 11/21/2012 Patient Education: Patient Medication Summary Completed 11/21/2012 Visit Plan: Hypertension - well con trolled - continue with current medications, continue with [...] peripheral edema. 10/28/2012 Appointment: Concepción Flanagan WPtel: [address] [place], [place] [id number] [place] Follow up 10/28/2012 Patient Education: Patient Medication Summary Completed 10/28/2012 Patient Education: Hypertension Completed 10/28/2012 Visit Plan: Hypertension - well con trolled - continue with current medications, continue with [...] treatment recommendations. 09/30/2012 Appointment: Concepción Flanagan WPtel: [address] [place], [place] [id number] [place] Follow up 09/30/2012 Patient Education: Patient Medication Summary Completed 09/30/2012 Patient Education: Hypertension Completed 09/30/2012 Appointment: Concepción Flanagan WPtel: [address] [place], [place] [id number] [place] Lab Draw 09/11/2012 Patient Education: Patient Medication Summary Completed 09/11/2012 Patient Education: Hypertension Completed 09/11/2012 Visit Plan: Hypertension - well con trolled - continue with current medications, continue with no added salt diet. Pt has been encouraged to exercise daily. The pt has been advised to call the office if there are any acute concerns about change in blood pressure readings at home. Cellulitis - resolved 08/14/2012 Appointment: Concepción Flanagan WPtel: [address] [place], [place] [id number] Follow up 08/14/2012 Patient Education: Patient Medication Summary Completed 08/14/2012 Patient Education: Hypertension Completed 08/14/2012 Visit Plan: Cellulitis - start with generic Bactrim DS as directed, return to clinic as previously directed, call for acute change in symptoms, worsening redness, warmth, discharge. 08/05/2012 Appointment: Concepción Flanagan WPtel: [address] [place], [place] [id number] Follow up 08/05/2012 Patient Education: Patient Medication Summary Completed 08/05/2012 Visit Plan: Hypertension - well con trolled - continue with current medications, continue with [...] soften stools. 07/15/2012 Appointment: Concepción Flanagan WPtel: [address] [place], [place] [phone] [facility] follow up 07/15/2012 Patient Education: Patient Medication Summary Completed 07/15/2012 Patient Education: Hypertension Completed 07/15/2012 Visit Plan: Subungual discoloratiio n of toenail- June 10 pt is to see Dr[address] Bee - I have discussed the case with the pt and Dr. bee and she will likely have a biopsy of the digit and avulsion of the nail. 05/27/2012 Appointment: Concepción Flanagan WPtel: [address] [place], [place] [phone] [facility] 05/27/2012 Patient Education: Patient Medication Summary Completed 05/27/2012 Appointment: Chaparrita Arrieta WPtel: [address] [place], [place] [phone] Follow up 05/16/2012 Visit Plan: Obesity - chronic issue with this patient. The pt has been counseled about diet changes, calorie restriction, and need to exercise. Pt will RTC in one month for weight check. Diabetes Mellitus - Uncontr olled - per recent FSBS reports. I have [...] Influenza vaccine 05/03/2012 Appointment: Chaparrita Arrieta WPtel: [facility] [place] [address] [place] Follow up 05/03/2012 Patient Education: Patient Medication Summary Completed 05/03/2012 Visit Plan: Wound Instructions - Pt was instruced to keep the wound clean, wash with antibacterial soap, use triple antibiotic ointment, call if redness, pustular drainage, or any other acute conerns. 04/23/2012 Appointment: Concepción Flanagan WPtel: [facility] [place] Surgical Procedure 04/23/2012 Patient Education: Patient Medication Summary Completed 04/23/2012 Appointment: Concepción Flanagan WPtel: [facility] [place] Lab Draw 04/16/2012 Patient Education: Patient Medication Summary Completed 04/16/2012 Patient Education: High Blood Pressure: Essential Hypertension Completed 04/16/2012 Visit Plan: Hypertension - well con trolled - continue with current medications, continue with no added salt diet. Pt has been encouraged to exercise daily. The pt has been advised to call the office if there are any acute concerns about change in blood pressure readings at home. Recommend follow up with daytime caregiver for clearance before knee surgery. Will get [...] to thighs. 03/25/2012 Appointment: Concepción Flanagan WPtel: [facility] [facility] 03/25/2012 Patient Education: Patient Medication Summary Completed 03/25/2012 Patient Education: High Blood Pressure: Essential Hypertension Completed 03/25/2012 Visit Plan: Hypertension - uncontro lled - the patient's medications have been modified as documented in the visit note. The patient has been counseled to cut back on salt in diet for a no added salt diet, low fat d iet, start an exercise program with low weight [...] of lesion. 03/12/2012 Appointment: Chaparrita Arrieta WPtel: [facility] [place] Other 03/12/2012 Patient Education: Patient Medication Summary Completed 03/12/2012 Patient Education: High Blood Pressure: Essential Hypertension Completed 03/12/2012 Visit Plan: Edema - pt has been adv ised to elevate legs to prevent dependent edema, compression has been recommended to help to naturally decrease peripheral edema. Diuretic use has been discussed and pt has been i nstructed in appropriate use of such medication as [...] at home. 01/23/2012 Appointment: Concepción Flanagan WPtel: [facility] Other 01/23/2012 Patient Education: Patient Medication Summary Completed 01/23/2012 Patient Education: High Blood Pressure: Essential Hypertension Completed 01/23/2012 Visit Plan: Breast lcau-hlwt-yakzfj sed natural and expected course of this diagnosis and to alert me if symptoms do not follow expected course, or if any worse. Plan for diagnostic mammogram, in meantime, instructed patient to get more supportive bra, use anti-inflammatories and monitor symptoms. Patient verbalized understanding of plan. 01/12/2012 Appointment: Chaparrita Arrieta WPtel: [facility] Other 01/12/2012 Patient Education: Patient Medication Summary Completed 01/12/2012 Visit Plan: HTN - continue with cur rent medications - no change at this time. Recommended follow up in about 4 weeks. Bring by the blood pressure readings in two weeks. Chronic Depression and anxiety - the pt has s ymptoms of chronic anxiety and depression that have been fairly well controlled since the last office visit. The pt has expected periods of exacerbation with abatement of the symptoms with change in situational exposure. No change in current medications. 12/25/2011 Appointment: Concepción Flanagan WPtel: [phone] Other 12/25/2011 Patient Education: Patient Medication Summary Completed 12/25/2011 Patient Education: High Blood Pressure: Essential Hypertension Completed 12/25/2011 Patient Education: Patient Medication Summary Completed 12/21/2011 Patient Education: High Blood Pressure: Essential Hypertension Completed 12/21/2011 Visit Plan: Hypertension - uncontro lled - the patient's medications have been modified as documented in the visit note. The patient has been counseled to cut back on salt in diet for a no added salt diet, low fat d iet, start an exercise program with low weight [...] COMPRESSION SOCKS. 12/04/2011 Appointment: Concepción Flanagan WPtel: [facility] [place] Other 12/04/2011 Patient Education: Patient Medication Summary Completed 12/04/2011 Patient Education: High Blood Pressure: Essential Hypertension Completed 12/04/2011 Appointment: Chaparrita Arrieta WPtel: [phone] [place] Lab Draw 12/01/2011 Patient Education: Patient Medication Summary Completed 12/01/2011 Appointment: Concepción Flanagan [facility]Ptel[phone] [place] Lab Draw 11/20/2011 Patient Education: Patient Medication Summary Completed 11/20/2011 Visit Plan: Hypertension - uncontro lled - the patient's medications have been modified as documented in the visit note. The patient has been counseled to cut back on salt in diet for a no added salt diet, low fat d iet, start an exercise program with low weight [...] acutely worsen. 09/20/2011 Appointment: Concepción Flanagan WPtel: [id number] Other 09/20/2011 Patient Education: Patient Medication Summary Completed 09/20/2011 Patient Education: High Blood Pressure: Essential Hypertension Completed 09/20/2011 Appointment: Concepción Flanagan WPtel: [facility] Other 09/13/2011 Visit Plan: Hypertension - The arturo ent has been counseled to cut back on [...] benefits of treament with the above medications. Vihhiex-vbrjhqqt-MY negative 09/06/2011 Appointment: Chaparrita Arrieta WPtel: [phone] [place] Other 09/06/2011 Patient Education: Patient Medication Summary Completed 09/06/2011 Patient Education: High Blood Pressure: Essential Hypertension Completed 09/06/2011 Visit Plan: Hypertension - uncontro lled - the patient's medications have been modified as documented in the visit note. The patient has been counseled to cut back on salt in diet for a no added salt diet, low fat d iet, start an exercise program with low weight [...] they worsen. 08/30/2011 Appointment: Concepción Flanagan WPtel: [facility] [address] Other 08/30/2011 Patient Education: Patient Medication Summary Completed 08/30/2011 Patient Education: High Blood Pressure: Essential Hypertension Completed 08/30/2011 Visit Plan: Sinusitis - Pt has acut e infection - pain in face, maxillary region, Pt informed to use decongestant, RX given to patient, sinus rinses also recommended. Call if symptoms do not show improvement. Roceph in injection given in the offie today. Urinary Frequency-UA done today-shows positive nitrites-plan to send for culture-RX for levaquin also sent to patient's pharmacy. 08/23/2011 Appointment: Chaparrita Arrieta WPtel: [address] [place], [place] [phone] Other 08/23/2011 Patient Education: Patient Medication Summary Completed 08/23/2011 Visit Plan: Labial cyst-discussed n atural and expected course of this diagnosis and to alert me if symtpoms do not follow expected course, or if any worse. Patient and verbalized understanding. 08/09/2011 Appointment: Chaparrita Arrieta WPtel: [address] [place], [place] [phone] Other 08/09/2011 Patient Education: Patient Medication Summary Completed 08/09/2011 Visit Plan: Hypertension - well con trolled - continue with current medications, continue with [...] not improving. 05/04/2011 Appointment: Concepción Flanagan WPtel: [id number] [place] Other 05/04/2011 Patient Education: Patient Medication Summary Completed 05/04/2011 Visit Plan: URI-discussed expected course with the patient, pt [...] 40mg daily. 04/19/2011 Appointment[phone] [phone] [place] Other 04/19/2011 Patient Education: Patient Medication Summary Completed 04/19/2011 Referral: External, Ordering Provider Referral Appointment Requested Instructions Comment . Cerumen Impaction - The impacted [...] health care surrogate. . Medicare Exam - to day we [...] twice daily and monitor symptoms. . Breast zytq-jsrg-kwiwxvmsc natural and expected course of this diagnosis [...] discuss with her son who is a [employer] - and consider re-evaluation for nasal pillows [...] see an ENT - Hortensia Tompkins in [place]. Treatment as follows: cefdinir - antibiotic twice [...] any other acute conerns. Use your albuterol i nhaler 1-2 puffs every 4-6 hours as needed for cough/SOA. Call if your symptoms do not improve, or if any worse.. Ewrvftxfm-Alwzqf-twjptofq not well controlled-KENALOG injection today in the [...] home. Cellulitis - resolved . Hypertension - we ll controlled - continue with current medications, continue [...] benefits of treament with the above medications. Witzmic-ydnjrnyt-RP negative . Hypertension - wel l controlled [...] do not show improvement. . Hypertension - un controlled - the patient's medications have been modified [...] concerns. . Hypertension - uncontrolled - the arturo ent's medications have been modified as documented [...] readings at home. Recommend follow up with daytime caregiver for clearance before knee surgery. Will get [...] daytime fatigue improved-will fax today's note to [employer] for re-certification of oxygen. . Hypertension - [...] daytime fatigue improved-will fax today's note to [employer] for re-certification of oxygen. . Sinusitis - [...] worse. RX sent to patient's pharmacy. . Hsudr-xobbydqyic-l tart zpack when finished with cipro- follow [...] MONTH. . Hypertension - uncontrolled - the arturo ent's medications have been modified as documented [...]
--- OUTSIDE RECORDS SUMMARY | 2020-01-05 01:04 | XMS REPORT | CCD ---
Author Author Mikala Arrieta Organization Concepción Flanagan MD, [facility] Address [address] [place] [address] Phone Care Team Providers Care Cardiac Exercise Specialist Name Role Phone [facility] Flanagan PP Unavailable CCM Unavailable Summary Purpose Interface Exchange Insurance Providers Payer name Policy type / Coverage type Covered republican ID Effective Begin Date Effective End Date WPS Medicare Part B Medicare Part B [id number] Unknown AARP Medicare Part B [id number] Unknown Family history Son Diagnosis Age At [...] M arried 04/19/[address]: 2912138 Quit over 10 years ago 40 pack/year [...] Fill Instructions Synthroid 50 mcg tablet RxNorm: 800074 TAKE ONE TABLET BY MOUTH DAILY 05/09/2019 08/06/2019 Ac tive Keflex 500 mg capsule RxNorm: 416342 1 Capsule(s) PO TID PRN 05/02/2019 05/08/2019 Inactive meloxicam 15 mg tablet RxNorm: 783745 TAKE ONE TABLET BY MOUTH DAILY 04/14/2019 07/06/2020 Ac tive Xanax 0.25 mg tablet RxNorm: 221387 1-2 Tablet(s) PO QHS as needed insomnia 03/14/2019 06/11/2019 Ac tive Centrum Silver Ultra Women's tablet RxNorm: Tablet(s) PO No Stop Date Active prednisone 10 mg tablet RxNorm: 491620 2 Tablet(s) PO daily 03/11/2019 03/15/2019 Inactive doxycycline hyclate 100 mg tablet RxNorm: 7962148 1 Tablet(s) PO BID 03/11/2019 03/20/2019 Inactive Klor-Con 10 mEq tabl et,extended release RxNorm: 092122 Tablet(s) TAKE ONE TA BLET BY MOUTH DAILY 03/05/2019 11/29/2019 Active Klor-Con 10 mEq tabl et,extended release RxNorm: 720724 Tablet(s) TAKE ONE TA BLET BY MOUTH DAILY 03/05/2019 03/04/2019 Inactive Lasix 40 mg tablet RxNorm: 404519 TAKE ONE TABLET BY MOUTH DAILY 12/24/2018 06/21/2019 Ac tive Crestor 10 mg tablet RxNorm: 506242 TAKE 1 TABLET BY MOUTH ON SUNDAY, , AND Sunday12/03/2018 05/31/2019 Active Atacand 16 mg tablet RxNorm: 644543 1 Tablet(s) PO daily 11/06/2018 10/31/2019 Active replaces benicar Atacand 16 mg tablet RxNorm: 849708 1 Tablet(s) PO daily 11/06/2018 11/05/2018 Inactive replaces benicar meloxicam 15 mg tablet RxNorm: 866454 TAKE ONE TABLET BY MOUTH DAILY 10/08/2018 04/13/2019 In active ProctoCream-HC 2.5 % rectal cream with applicator RxNorm: 375602 APPLY TO AFFECTED AREAS DIRECTED RTL 10/01/2018 No Stop Date Active Cartia XT 240 mg cap chad,extended release RxNorm: 372506 TAKE ONE CAPSULE BY M [facility] DAILY 09/23/2018 09/17/2019 Active Singulair 10 mg tablet RxNorm: 146947 TAKE ONE TABLET BY MOUTH EVERY DAY 09/06/2018 10/30/2019 Ac tive Klor-Con 10 mEq tabl et,extended release RxNorm: 577836 TAKE ONE TABLET BY [facility] TWICE A DAY 09/06/2018 03/04/2019 Inactive Xanax 0.25 mg tablet RxNorm: 087847 1-2 Tablet(s) PO QHS as needed insomnia 08/26/2018 11/22/2018 In active Voltaren 1 % topical gel RxNorm: 065538 APPLY TWO GRAMS TOPIC ALLY FOUR TIMES A DAY BILATERAL KNEES AND LOWER BACK 06/26/2018 09/23/2018 Inactive Lasix 40 mg tablet RxNorm: 141773 TAKE ONE TABLET BY MOUTH DAILY 06/20/2018 12/16/2018 In active Voltaren 1 % topical gel RxNorm: 836665 2 Gram(s) TOP QID basilia ateral knees and low back 05/29/2018 06/25/2018 Inactive Synthroid 50 mcg tablet RxNorm: 258125 Tablet(s) TAKE ONE TABLET BY MOUTH DAILY 05/17/2018 11/12/2018 In active Synthroid 50 mcg tablet RxNorm: 066410 TAKE ONE TABLET BY MOUTH DAILY 05/16/2018 05/16/2018 In active hydrocodone 5 mg-patrizia taminophen 325 mg tablet RxNorm: 591173 1/2 Tablet(s) PO QID as needed 05/15/2018 06/13/2018 Inactive Keflex 500 mg capsule RxNorm: 195447 1 Capsule(s) PO TID PRN 04/30/2018 05/06/2018 Inactive Silvadene 1 % topica l cream RxNorm: 712822 1 Application TOP BID 04/30/2018 05/09/2018 Inactive Anusol-HC 25 mg rect al suppository RxNorm: 0688110 1 Suppository PRN IN SERT 1 RECTALLY DAILY NEEDED 04/25/2018 No Stop Date Active Colace 100 mg capsule RxNorm: 2107893 1 Capsule(s) PO daily as needed 04/25/2018 No Stop Date Active Silvadene 1 % topica l cream RxNorm: 479491 1 Application TOP BID 04/25/2018 04/29/2018 Inactive meloxicam 15 mg tablet RxNorm: 814681 1 Tablet(s) PO daily TAKE ONE TABLET BY MOUTH ONE TIME A DAY 04/25/2018 10/07/2018 Inactive Benicar 40 mg tablet RxNorm: 908399 TAKE ONE TABLET BY MOUTH DAILY 04/04/2018 11/05/2018 In active Xanax 0.25 mg tablet RxNorm: 529123 1-2 Tablet(s) PO QHS as needed insomnia 03/07/2018 06/04/2018 In active Lasix 40 mg tablet RxNorm: 911029 TAKE ONE TABLET BY MOUTH DAILY 01/07/2018 06/19/2018 In active Crestor 10 mg tablet RxNorm: 255578 TAKE 1 TABLET BY MOUTH ON SUNDAY, , AND Sunday11/20/2017 05/18/2018 Inactive Synthroid 50 mcg tablet RxNorm: 757875 TAKE ONE TABLET BY MOUTH DAILY 11/14/2017 05/12/2018 In active Diflucan 150 mg tablet RxNorm: 925184 1 Tablet(s) PO daily 09/12/2017 09/25/2017 Inactive cefdinir 300 mg capsule RxNorm: 016815 1 Capsule(s) PO BID 09/12/2017 09/25/2017 Inactive Cartia XT 240 mg cap chad,extended release RxNorm: 633787 TAKE ONE CAPSULE BY M OUTH DAILY 09/12/2017 09/06/2018 Inactive prednisone 20 mg tablet RxNorm: 959120 2 Tablet(s) PO daily 08/31/2017 09/04/2017 Inactive Xanax 0.25 mg tablet RxNorm: 424527 1-2 Tablet(s) PO QHS as needed insomnia 08/28/2017 11/24/2017 In active Keflex 500 mg capsule RxNorm: 905544 1 Capsule(s) PO TID 08/28/2017 08/27/2017 Inactive Keflex 500 mg capsule RxNorm: 242105 1 Capsule(s) PO TID 08/28/2017 09/03/2017 Inactive Klor-Con 10 mEq tabl et,extended release RxNorm: 583268 TAKE ONE TABLET BY [facility] TWICE A DAY 08/23/2017 08/17/2018 Inactive cefdinir 300 mg capsule RxNorm: 786842 1 Capsule(s) PO BID 08/13/2017 08/12/2017 Inactive cefdinir 300 mg capsule RxNorm: 981359 1 Capsule(s) PO BID 08/13/2017 08/19/2017 Inactive Kenalog 40 mg/mL heaven pension for injection RxNorm: 9726959 1 Milliliter(s) Inj 08/09/2017 08/09/2017 In active ceftriaxone 500 mg s olution for injection RxNorm: 0193646 Inj 08/09/2017 08/09/2017 Inactive Zithromax Z-Hebert 250 mg tablet RxNorm: 509640 1 Tablet(s) PO UD 08/09/2017 08/13/2017 Inactive Singulair 10 mg tablet RxNorm: 869701 TAKE ONE TABLET BY MOUTH EVERY DAY 08/03/2017 09/05/2018 In active Xanax 0.25 mg tablet RxNorm: 274546 1-2 Tablet(s) PO QHS as needed insomnia 07/25/2017 05/28/2018 In active Benicar 40 mg tablet RxNorm: 054949 TAKE ONE TABLET BY MOUTH DAILY 07/09/2017 04/03/2018 In active Lasix 40 mg tablet RxNorm: 463207 TAKE ONE TABLET BY MOUTH DAILY 07/09/2017 01/04/2018 In active Synthroid 50 mcg tablet RxNorm: 727326 1 Tablet(s) PO daily TAKE ONE TABLET BY MOUTH DAILY 05/21/2017 11/13/2017 Inactive Must be name brand Lasix 40 mg tablet RxNorm: 090234 TAKE ONE TABLET BY MOUTH DAILY 04/12/2017 07/08/2017 In active Zithromax Z-Hebert 250 mg tablet RxNorm: 534000 1 Tablet(s) PO UD 02/05/2017 02/09/2017 Inactive start with finished with cipro Cipro 500 mg tablet RxNorm: 573186 1 Tablet(s) PO BID 02/01/2017 02/07/2017 Inactive prednisone 20 mg tablet RxNorm: 486563 1 Tablet(s) PO BID 01/15/2017 01/19/2017 Inactive take 1 in the morning and 1 at noon calcium carbonate 60 0 mg calcium (1,500 mg) tablet RxNorm: 929700 1 Tablet(s) PO daily 01/04/2017 No Stop Date Active Kenalog 40 mg/mL heaven pension for injection RxNorm: 7297372 1 Milliliter(s) Inj 01/04/2017 01/04/2017 In active Anusol-HC 25 mg rect al suppository RxNorm: 7897229 1 Suppository PRN IN SERT 1 RECTALLY DAILY NEEDED 01/04/2017 04/03/2017 Inactive Lasix 40 mg tablet RxNorm: 754874 TAKE ONE TABLET BY MOUTH DAILY 12/20/2016 04/11/2017 In active Cartia XT 240 mg cap chad,extended release RxNorm: 549215 TAKE ONE CAPSULE BY M OUTH DAILY 12/20/2016 09/11/2017 Inactive Synthroid 50 mcg tablet RxNorm: 161015 1 Tablet(s) PO daily TAKE ONE TABLET BY MOUTH DAILY 11/27/2016 05/20/2017 Inactive Must be name brand meloxicam 15 mg tablet RxNorm: 147084 Tablet(s) TAKE ONE TABLET BY MOUTH ONE T MARÍA ELENA A DAY 11/27/2016 06/24/2017 Inactive Crestor 10 mg tablet RxNorm: 914117 TAKE 1 TABLET BY MOUTH ON SUNDAY, , AND Sunday11/13/2016 10/14/2017 Inactive Lexapro 10 mg tablet RxNorm: 665094 1 Tablet(s) PO daily 09/07/2016 01/03/2017 Inactive please make sure that her RX for lexapro is a 10mg dose - delete the 5mg lexapro pill - this is FYI Klor-Con 10 mEq tabl et,extended release RxNorm: 911880 TAKE ONE TABLET BY [facility] TWICE A DAY 08/29/2016 02/24/2017 Inactive Kenalog 40 mg/mL heaven pension for injection RxNorm: 5235357 Milliliter(s) Inj 08/23/2016 08/23/2016 In active cefdinir 300 mg capsule RxNorm: 976072 1 Capsule(s) PO BID 08/22/2016 08/28/2016 Inactive take probiotic while on abx Zithromax Z-Hebert 250 mg tablet RxNorm: 989952 1 Tablet(s) PO UD 08/11/2016 09/06/2016 Inactive Z PACK DIRECTED Lexapro 5 mg tablet RxNorm: 961888 TAKE ONE TABLET BY MOUTH EVERY EVENING 07/18/2016 09/06/2016 In active Singulair 10 mg tablet RxNorm: 668566 TAKE ONE TABLET BY MOUTH EVERY DAY 07/17/2016 08/02/2017 In active Benicar 40 mg tablet RxNorm: 773148 TAKE ONE TABLET BY MOUTH DAILY 07/17/2016 07/08/2017 In active Lexapro 10 mg tablet RxNorm: 284181 1 Tablet(s) PO daily 06/16/2016 09/06/2016 Inactive diltiazem ER 180 mg capsule,extended release RxNorm: 759975 TAKE ONE CAPSULE BY [facility] DAILY 06/15/2016 07/05/2016 Inactive Lexapro 10 mg tablet RxNorm: 272484 1 Tablet(s) PO daily 06/08/2016 06/15/2016 Inactive gabapentin 600 mg ta blet RxNorm: 202096 TAKE ONE TABLET BY [facility] EVERY NIGHT AT BEDTIME NEEDED 04/27/2016 04/11/2017 Inactive Cartia XT 240 mg cap chad,extended release RxNorm: 038578 1 Capsule(s) PO daily TAKE ONE CAPSULE BY MOUTH ONCE A DAY 04/17/2016 12/19/2016 Inactive Benicar 40 mg tablet RxNorm: 207704 1 Tablet(s) PO daily 04/17/2016 07/16/2016 Inactive she can do 90 days if she wants to Lexapro 5 mg tablet RxNorm: 222081 1 Tablet(s) PO QPM 03/09/2016 06/07/2016 Inactive Synthroid 50 mcg tablet RxNorm: 396755 1 Tablet(s) PO daily TAKE ONE TABLET BY MOUTH DAILY 01/18/2016 07/15/2016 Inactive Colace 100 mg capsule RxNorm: 7467604 1 Capsule(s) PO daily 01/18/2016 04/24/2018 Inactive hydrocodone 5 mg-patrizia taminophen 325 mg tablet RxNorm: 662254 1/2 Tablet(s) PO QID as needed 01/18/2016 02/16/2016 Inactive Synthroid 50 mcg tablet RxNorm: 104740 Tablet(s) TAKE ONE TABLET BY MOUTH DAILY 12/23/2015 01/17/2016 In active Benicar 40 mg tablet RxNorm: 324924 1 Tablet(s) PO daily 12/13/2015 12/12/2015 Inactive Benicar 40 mg tablet RxNorm: 825951 1 Tablet(s) PO daily 12/13/2015 04/10/2016 Inactive meloxicam 15 mg tablet RxNorm: 624826 TAKE ONE TABLET BY MOUTH ONE TIME A DAY 11/12/2015 06/08/2016 In active meloxicam 15 mg tablet RxNorm: 262654 Tablet(s) TAKE ONE TABLET BY MOUTH ONE T MARÍA ELENA A DAY 11/11/2015 11/11/2015 Inactive Lasix 40 mg tablet RxNorm: 672592 Tablet(s) TAKE ONE TABLET BY MOUTH EVERY DAY 10/19/2015 12/19/2016 Inactive diltiazem ER 180 mg capsule,extended release RxNorm: 798593 1 Capsule(s) daily TA KE ONE CAPSULE BY MOUTH ONCE A DAY 09/27/2015 04/16/2016 Inactive Crestor 10 mg tablet RxNorm: 806756 1 Tablet(s) PO Sun09/17/2015 07/12/2016 Inactive [SAVINGS FOR UNINSURED PATIENTS -- BIN:0 37252, PCN: ASPROD1, Group: [id number], ID# [id number], Process claim through [employer], for questions: . THIS IS NOT INSURANCE.] hydrocodone 5 mg-patrizia taminophen 325 mg tablet RxNorm: 973914 1-2 Tablet(s) PO Q6 P RN 09/09/2015 10/08/2015 In active Micardis 80 mg tablet RxNorm: 638998 1 Tablet(s) PO daily TAKE ONE TABLET BY MOUTH DAILY 08/23/2015 12/12/2015 Inactive Klor-Con 10 mEq tabl et,extended release RxNorm: 874077 Tablet(s) TAKE ONE TA BLET BY MOUTH TWICE A DAY 08/23/2015 02/18/2016 Inactive Synthroid 50 mcg tablet RxNorm: 329948 TAKE ONE TABLET BY MOUTH DAILY 07/06/2015 12/22/2015 In active meloxicam 15 mg tablet RxNorm: 008008 TAKE ONE TABLET BY MOUTH ONE TIME A DAY 06/22/2015 11/10/2015 In active Singulair 10 mg tablet RxNorm: 952776 TAKE ONE TABLET BY MOUTH EVERY DAY 05/18/2015 07/16/2016 In active Micardis 80 mg tablet RxNorm: 187442 TAKE ONE TABLET BY MOUTH DAILY 02/22/2015 05/04/2015 In active gabapentin 600 mg ta blet RxNorm: 757248 1 Tablet(s) PO HS as needed 01/15/2015 01/09/2016 Inactive [SAVINGS FOR NON-COVERED DRUGS -- BIN:00 3585, PCN: ASPROD1, Group: [id number], ID# [id number], Questions: . THIS IS NOT INSURANCE.] diltiazem ER 180 mg capsule,extended release RxNorm: 023622 TAKE ONE CAPSULE BY M OUTH ONCE A DAY 01/07/2015 09/26/2015 Inactive meloxicam 15 mg tablet RxNorm: 432959 TAKE ONE TABLET BY MOUTH ONE TIME A DAY 11/09/2014 05/07/2015 In active gabapentin 600 mg ta blet RxNorm: 411875 1 Tablet(s) PO HS as needed 10/13/2014 01/14/2015 Inactive [SAVINGS FOR UNINSURED PATIENTS -- BIN:0 84770, PCN: ASPROD1, Group: [id number], ID# [id number], Process claim through [employer], for questions: . THIS IS NOT INSURANCE.] omeprazole 20 mg tab let,delayed release RxNorm: 215375 1 Tablet(s) PO daily 10/13/2014 11/11/2014 In active Synthroid 50 mcg tablet RxNorm: 540558 TAKE ONE TABLET BY MOUTH EVERY DAY 10/12/2014 01/09/2015 In active Synthroid 50 mcg tablet RxNorm: 766597 Tablet(s) TAKE ONE TABLET BY MOUTH EVERY DAY 10/12/2014 10/11/2014 Inactive [SAVINGS FOR UNINSURED PATIENTS -- BIN:0 49228, PCN: ASPROD1, Group: [id number], ID# [id number], Process claim through [employer], for questions: . THIS IS NOT INSURANCE.] Lasix 40 mg tablet RxNorm: 804727 Tablet(s) PO TAKE ONE TABLET BY MOUTH TW ICE A DAY FOR 3 DAYS, THEN RESUME ONE DAILY EXCEPT ON WEDNESDAYS AND FRIDAYS TAKE ONE TWICE DAILY 09/22/2014 05/28/2018 Inactive [SAVINGS FOR UNINSURED ARTURO ENTS -- BIN:414971, PCN: ASPROD1, Group: [id number], ID# [id number], Process claim through [employer], for questions: . THIS IS NOT INSURANCE.] Lasix 40 mg tablet RxNorm: 675796 TAKE ONE TABLET BY MOUTH EVERY DAY 09/22/2014 10/18/2015 In active Crestor 10 mg tablet RxNorm: 579616 1 Tablet(s) PO Sun08/28/2014 04/24/2015 Inactive [SAVINGS FOR UNINSURED PATIENTS -- BIN:0 73694, PCN: ASPROD1, Group: [id number], ID# [id number], Process claim through [employer], for questions: . THIS IS NOT INSURANCE.] Crestor 10 mg tablet RxNorm: 429693 1 Tablet(s) PO Sun08/28/2014 08/27/2014 Inactive [SAVINGS FOR UNINSURED PATIENTS -- BIN:0 63995, PCN: ASPROD1, Group: [id number], ID# [id number], Process claim through [employer], for questions: . THIS IS NOT INSURANCE.] Micardis 80 mg tablet RxNorm: 777559 TAKE ONE TABLET BY MOUTH EVERY DAY 08/24/2014 12/21/2014 In active Zithromax Z-Hebert 250 mg tablet RxNorm: 020208 Tablet(s) PO UD 08/14/2014 08/18/2014 Inactive 2 tabs day 1, 1 tabs days 2-5 Anusol-HC 25 mg supp ository RxNorm: 3644835 INSERT 1 RECTALLY DA GUSTAVO NEEDED 07/13/2014 10/10/2014 In active Klor-Con 10 mEq tabl et,extended release RxNorm: 589819 TAKE ONE TABLET BY MO [facility] TWICE A DAY 06/18/2014 12/14/2014 Inactive Lomotil 2.5 mg-0.025 mg tablet RxNorm: 2650737 1 Tablet(s) PO PRN a fter each loose stool max 8 per day 06/15/2014 10/12/2014 Inactive one after each loose bm juarez it 8 per day albuterol sulfate HF A 90 mcg/actuation aerosol inhaler RxNorm: 6391044 1 or2 Puff(s) INH Q4 PRN as needed 05/11/2014 05/10/2014 Inactive albuterol sulfate HF A 90 mcg/actuation aerosol inhaler RxNorm: 6122850 1 or2 Puff(s) INH Q4 PRN as needed 05/11/2014 01/03/2017 Inactive Premarin 0.625 mg/gr am vaginal cream RxNorm: 188214 1/2 Gram(s) VAG every other day 05/11/2014 12/06/2014 In active Premarin 0.625 mg/gr am vaginal cream RxNorm: 585661 1/2 Gram(s) VAG every other day 05/11/2014 05/10/2014 In active cefdinir 300 mg capsule RxNorm: 667867 1 Capsule(s) PO BID 05/07/2014 05/16/2014 Inactive Rocephin 500 mg solu tion for injection RxNorm: 983188 1 Milliliter(s) Inj 05/07/2014 05/07/2014 In active Singulair 10 mg tablet RxNorm: 674308 TAKE ONE TABLET BY MOUTH EVERY DAY 04/30/2014 10/12/2014 In active meloxicam 15 mg tablet RxNorm: 572712 1 Tablet(s) PO daily 04/16/2014 11/08/2014 Inactive Crestor 10 mg tablet RxNorm: 536583 1 Tablet(s) PO Sun TAKE ONE TAB LET BY MOUTH EVERY DAY 04/16/2014 08/27/2014 Inactive Synthroid 50 mcg tablet RxNorm: 451866 TAKE ONE TABLET BY MOUTH EVERY DAY 04/02/2014 09/28/2014 In active diltiazem ER 180 mg capsule,extended release RxNorm: 927341 1 Capsule(s) PO daily 01/05/2014 12/30/2014 In active Pennsaid 1.5 % topic al drops RxNorm: 445037 Drop(s) TOP APPLY 15 - 20 DROPS TOPICALLY FOUR TIMES A DAY 12/29/2013 01/17/2016 Inactive Rocephin 500 mg solu tion for injection RxNorm: 248379 Inj 12/2612/26/2013 Inactive Kenalog 40 mg/mL heaven pension for injection RxNorm: 7250195 Milliliter(s) Inj 12/26/2013 12/26/2013 In active Micardis 80 mg tablet RxNorm: 782870 Tablet(s) PO TAKE ONE TABLET BY MOUTH EV DEANNA12/15/2013 08/23/2014 Inactive nystatin 100,000 uni t/mL oral suspension RxNorm: 734605 4 Unit(s) PO QID swis h and swallow 11/12/2013 12/09/2013 Inactive Kenalog 40 mg/mL heaven pension for injection RxNorm: 9589174 Milliliter(s) Inj 11/12/2013 11/12/2013 In active Lasix 40 mg tablet RxNorm: 646276 Tablet(s) PO TAKE ONE TABLET BY MOUTH TW ICE A DAY FOR 3 DAYS, THEN RESUME ONE DAILY EXCEPT ON WEDNESDAYS AND FRIDAYS TAKE ONE TWICE DAILY 10/30/2013 09/21/2014 Inactive Lasix 40 mg tablet RxNorm: 035065 1 Tablet(s) PO daily 10/30/2013 10/29/2013 Inactive Rocephin 500 mg solu tion for injection RxNorm: 395166 1 Milliliter(s) Inj 10/09/2013 10/09/2013 In active metoprolol succinate ER 25 mg tablet,extended release 24 hr RxNorm: 145962 Tablet(s) PO TAKE ONE TABLET BY MOUTH EVERY DAY 10/02/2013 01/06/2014 Inactive metoprolol succinate ER 25 mg tablet,extended release 24 hr RxNorm: 730681 Tablet(s) PO TAKE ONE TABLET BY MOUTH EVERY DAY 08/04/2013 10/01/2013 Inactive Synthroid 50 mcg tablet RxNorm: 893395 Tablet(s) PO TAKE ONE TABLET BY MOUTH 07/14/2013 04/01/2014 Inactive gabapentin 600 mg ta blet RxNorm: 486696 1 Tablet(s) PO Q8 PRN 06/11/2013 06/11/2013 Inactive gabapentin 600 mg ta blet RxNorm: 063607 1 Tablet(s) PO Q8 PRN 06/11/2013 03/07/2014 Inactive Neurontin 600 mg tablet RxNorm: 215463 1 Tablet(s) PO Q8 PRN 06/10/2013 06/11/2013 Inactive Anusol-HC 25 mg supp ository RxNorm: 4391141 Suppository RTL INSE RT 1 RECTALLY DAILY NEEDED 04/24/2013 07/12/2014 Inactive metoprolol succinate ER 25 mg tablet,extended release 24 hr RxNorm: 804622 1 Tablet(s) PO daily 04/21/2013 08/03/2013 Inactive Premarin 0.625 mg/gr am Vaginal Cream RxNorm: 468354 1/2 Gram(s) VAG every other day 04/03/2013 10/29/2013 In active Klor-Con 10 mEq tabl et,extended release RxNorm: 205964 1 Tablet(s) PO daily 03/26/2013 03/20/2014 In active Klor-Con 10 mEq tabl et,extended release RxNorm: 521968 1 Tablet(s) PO BID 03/24/2013 03/23/2013 In active Klor-Con 10 mEq tabl et,extended release RxNorm: 456610 1 Tablet(s) PO BID 03/24/2013 03/25/2013 In active Klor-Con 10 mEq tabl et,extended release RxNorm: 868029 1 Tablet(s) PO BID 03/24/2013 03/23/2013 In active Augmentin 875 mg-125 mg tablet RxNorm: 645576 1 Tablet(s) PO BID 03/12/2013 03/18/2013 Inactive Augmentin 875 mg-125 mg tablet RxNorm: 575007 1 Tablet(s) PO BID 03/12/2013 03/11/2013 Inactive ciprofloxacin 500 mg tablet RxNorm: 573422 1 Tablet(s) PO BID 03/11/2013 03/17/2013 Inactive ciprofloxacin 500 mg tablet RxNorm: 190355 1 Tablet(s) PO BID 03/11/2013 03/10/2013 Inactive Crestor 10 mg tablet RxNorm: 733546 1 Tablet(s) PO daily 02/10/2013 02/09/2013 Inactive Crestor 10 mg tablet RxNorm: 052183 Tablet(s) PO TAKE ONE TABLET BY MOUTH EV DEANNA DAY 02/10/2013 04/15/2014 Inactive Singulair 10 mg tablet RxNorm: 524128 Tablet(s) PO TAKE ONE TABLET BY MOUTH EV DEANNA DAY 02/04/2013 04/29/2014 Inactive Kenalog 40 mg/mL Heaven p for Injection RxNorm: 3984640 1 Milliliter(s) Inj 11/21/2012 11/21/2012 In active Pennsaid 1.5 % topic al drops RxNorm: 347648 15-20 Drop(s) TOP QID 10/28/2012 11/21/2013 Inactive Micardis 80 mg tablet RxNorm: 421371 1 Tablet(s) PO daily 10/28/2012 10/22/2013 Inactive put this on file please, quantitiy incre ase Pennsaid 1.5 % Topic al Drops RxNorm: 781088 15-20 Drop(s) TOP QID 10/28/2012 10/27/2012 Inactive diltiazem ER 180 mg capsule,extended release RxNorm: 390143 1 Capsule(s) PO daily 10/14/2012 10/08/2013 In active Pyridium 200 mg tablet RxNorm: 9037946 1 Tablet(s) PO Q8 PRN 09/11/2012 10/12/2014 Inactive Flagyl 500 mg tablet RxNorm: 564127 1 Tablet(s) PO TID 09/04/2012 09/10/2012 Inactive Macrobid 100 mg capsule RxNorm: 3883118 1 Capsule(s) PO BID 09/03/2012 09/02/2012 Inactive Macrobid 100 mg capsule RxNorm: 9259670 1 Capsule(s) PO BID 09/03/2012 09/09/2012 Inactive sulfamethoxazole-tri methoprim 800 mg-160 mg tablet RxNorm: 941323 1 Tablet(s) PO BID 08/05/2012 08/14/2012 Inactive Lasix 40 mg tablet RxNorm: 331159 1 Tablet(s) PO BID pt is taking extra la six x 3 days, then every sunday and sunday take two lasix pills. 07/15/2012 07/09/2013 Inactive Synthroid 50 mcg tablet RxNorm: 186546 1 Tablet(s) PO daily 07/15/2012 07/09/2013 Inactive do not substitute the generic levothyrox ine for the synthroid brand name.....she needs brand name synthroid. Klor-Con 10 mEq tabl et,extended release RxNorm: 686549 1 Tablet(s) PO BID 07/15/2012 03/23/2013 In active Singulair 10 mg tablet RxNorm: 695168 1 Tablet(s) PO daily 06/12/2012 02/03/2013 Inactive Lexapro 10 mg tablet RxNorm: 673959 1/2 Tablet(s) PO daily 05/10/2012 06/03/2013 Inactive ProAir HFA 90 mcg/ac tuation Aerosol Inhaler RxNorm: 725471 2 INH Q6 PRN 04/23/2012 01/17/2016 In active Lexapro 10 mg tablet RxNorm: 987252 1/2 Tablet(s) PO daily 04/19/2012 05/09/2012 Inactive metoprolol succinate ER 50 mg tablet,extended release 24 hr RxNorm: 786179 1 Tablet(s) PO daily 04/09/2012 04/09/2012 Inactive Klor-Con 10 10 mEq t ablet,extended release RxNorm: 773071 1 Tablet(s) PO daily 04/01/2012 07/14/2012 In active metoprolol succinate ER 50 mg tablet,extended release 24 hr RxNorm: 946123 1/2 Tablet(s) PO BID 03/11/2012 04/08/2012 Inactive clonidine 0.1 mg Tab RxNorm: 259868 1 Tablet(s) PO BID 02/19/2012 03/12/2012 Inactive clonidine 0.1 mg Tab RxNorm: 504180 1 Tablet(s) PO BID 02/19/2012 02/18/2012 Inactive Micardis 80 mg Tab RxNorm: 893473 1 Tablet(s) PO daily 02/14/2012 02/13/2012 Inactive Micardis 80 mg tablet RxNorm: 873125 1 Tablet(s) PO daily 02/14/2012 10/27/2012 Inactive Synthroid 50 mcg tablet RxNorm: 522208 1 Tablet(s) PO daily 02/12/2012 07/14/2012 Inactive Tekturna 300 mg Tab RxNorm: 1933398 1 Tablet(s) PO daily 02/12/2012 03/12/2012 Inactive Lasix 40 mg Tab RxNorm: 078339 1 Tablet(s) PO daily 12/18/2011 12/17/2011 Inactive Lasix 40 mg tablet RxNorm: 196853 1 Tablet(s) PO daily 12/18/2011 07/14/2012 Inactive Anusol-HC 25 mg Supp ository RxNorm: 5350266 1 Suppository RTL QD AY PRN 12/04/2011 04/19/2012 In active lactobacillus acidop hilus Cap RxNorm: 1 Capsule(s) PO BID 11/21/2011 11/20/2011 Inactive lactobacillus acidop hilus Cap RxNorm: 1 Capsule(s) PO BID 11/21/2011 11/20/2011 Inactive Cipro 500 mg Tab RxNorm: 378629 1 Tablet(s) PO BID 11/21/2011 03/12/2012 Inactive lactobacillus acidop hilus Cap RxNorm: 1 Capsule(s) PO BID 11/21/2011 11/27/2011 Inactive lactobacillus acidop hilus Cap RxNorm: 1 Capsule(s) PO BID 11/21/2011 11/20/2011 Inactive Cipro 500 mg Tab RxNorm: 376120 1 Tablet(s) PO BID 11/21/2011 11/20/2011 Inactive Lexapro 10 mg Tab RxNorm: 030231 1 Tablet(s) PO daily 11/13/2011 11/12/2011 Inactive Lexapro 10 mg tablet RxNorm: 079986 1 Tablet(s) PO daily 11/13/2011 04/18/2012 Inactive amlodipine 10 mg Tab RxNorm: 582811 1 Tablet(s) PO daily 10/09/2011 12/03/2011 Inactive amlodipine 5 mg Tab RxNorm: 633928 1 Tablet(s) PO daily 09/20/2011 12/04/2011 Inactive Rocephin 500 mg Solu tion for Injection RxNorm: 4184719 Inj 11/201109/20/2011 Inactive metoprolol succinate ER 25 mg 24 hr Tab RxNorm: 470077 1 Tablet(s) PO QHS 08/30/2011 09/20/2011 In active Ambien 10 mg Tab RxNorm: 144393 1 Tablet(s) PO HS PRN 08/30/2011 04/19/2012 Inactive Augmentin 875 mg-125 mg Tab RxNorm: 676554 1 Tablet(s) PO BID 08/25/2011 09/20/2011 Inactive Augmentin 875 mg-125 mg Tab RxNorm: 075334 1 Tablet(s) PO BID 08/25/2011 08/24/2011 Inactive Rocephin 500 mg Solu tion for Injection RxNorm: 0796692 Inj 07/2808/23/2011 Inactive Levaquin 500 mg Tab RxNorm: 145439 1 Tablet(s) PO daily 08/23/2011 08/30/2011 Inactive chlordiazepoxide-cli dinium 5 mg-2.5 mg Cap RxNorm: 337609 1 Capsule(s) PO BID 07/10/2011 04/19/2012 In active q 12 hours prn metoprolol succinate ER 100 mg 24 hr Tab RxNorm: 479943 1 Tablet(s) PO daily 05/29/2011 03/12/2012 In active Synthroid 50 mcg Tab RxNorm: 291658 1 Tablet(s) PO daily 05/15/2011 08/12/2011 Inactive Ambien CR 12.5 mg Tab RxNorm: 509173 1 Tablet(s) PO HS PRN 05/09/2011 08/30/2011 Inactive Ambien 10 mg Tab RxNorm: 003412 1 Tablet(s) PO QHS 05/09/2011 06/07/2011 Inactive Nexium 40 mg Cap RxNorm: 358843 1 Capsule(s) PO daily 05/04/2011 03/12/2012 Inactive the patient had tried pepcid, otc priolosec, RX omperazole, failed them all Bactrim DS 800 mg-16 0 mg Tab RxNorm: 926339 1 Tablet(s) PO BID 04/19/2011 08/30/2011 Inactive triamcinolone aceton margie 40 mg/mL Susp for Injection RxNorm: 3932445 1 Milliliter(s) Inj UD 04/19/2011 04/19/2011 Inactive aspirin 81 mg Tab, D elayed Release RxNorm: 425005 1 Tablet(s) PO daily No Start Date Active 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 Device RxNorm: 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, 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 No Start Date Active Cymbalta 30 mg Cap RxNorm: 259593 1 Capsule(s) PO daily No Start Date 03/12/2012 Inactive Nexium 40 mg Cap RxNorm: 297649 Capsule(s) PO No Start Date 05/03/2011 Inactive Benadryl 25 mg capsule RxNorm: 7355934 1 Capsule(s) PO QHS No Start Date 01/03/2017 Inactive Klor-Con 10 10 mEq t ablet,extended release RxNorm: 472342 1 Tablet(s) PO daily No Start Date 03/31/2012 Inactive Metamucil Oral RxNorm: Oral No Start Date 10/12/2014 Inactive amlodipine 10 mg Tab RxNorm: 369770 1 Tablet(s) PO daily No Start Date 10/08/2011 Inactive Norvasc 5 mg tablet RxNorm: 785716 1 Tablet(s) PO daily No Start Date 10/12/2014 Inactive Lasix 40 mg Tab RxNorm: 054282 1 Tablet(s) PO daily No Start Date 12/17/2011 Inactive diltiazem ER (XR/XT) 240 mg capsule,extended release,controlled RxNorm: 114466 1 Capsule(s) PO daily No Start Date 04/22/2012 Inactive Centrum Silver Ultra Women's oral RxNorm: oral No Start D ate 04/24/2018 Inactive Synthroid 50 mcg Tab RxNorm: 761210 1 Tablet(s) PO daily No Start Date 05/14/2011 Inactive Flagyl 500 mg tablet RxNorm: 563838 1 Tablet(s) PO No Start Date 09/03/2012 Inactive one after each loose bm limit 8 per day Boniva 150 mg Tab RxNorm: 624339 1 Tablet(s) PO UD No Start Date 08/30/2011 Inactive monthly Singulair 10 mg tablet RxNorm: 831889 1 Tablet(s) PO daily No Start Date 06/11/2012 Inactive folic acid Oral RxNorm: Oral No Start Date 03/12/2012 Inactive potassium chloride E R 10 mEq tablet,extended release RxNorm: 144868 1 Tablet(s) PO daily No Start Date 01/03/2017 Inactive Probiotic & Acidophi jerilyn oral RxNorm: oral No Start D ate 04/24/2018 Inactive Librium 10 mg Cap RxNorm: 710737 Capsule(s) PO UD No Start Date 03/12/2012 Inactive q 12 hours prn Crestor 10 mg tablet RxNorm: 424843 1 Tablet(s) PO daily No Start Date 02/09/2013 Inactive multivitamin Cap RxNorm: 1 Capsule(s) PO daily No Start Date 01/17/2016 Inactive metoprolol succinate ER 100 mg 24 hr Tab RxNorm: 147529 1 Tablet(s) PO daily No Start Date 05/28/2011 Inactive Zithromax Z-Hebert 250 mg tablet RxNorm: 691282 Tablet(s) PO UD No Start Date 12/22/2015 Inactive diltiazem ER 180 mg capsule,extended release RxNorm: 319990 1 Capsule(s) PO daily No Start Date 10/13/2012 Inactive ProctoCream-HC 2.5 % rectal cream with applicator RxNorm: 502636 APPLY TO AFFECTED AREAS DIRECTED RTL No Start Date 09/30/2018 Inactive Tekturna 300 mg Tab RxNorm: 8994586 1 Tablet(s) PO daily samples No Start Date 02/11/2012 Inactive Xanax 0.25 mg tablet RxNorm: 547907 1-2 Tablet(s) PO QHS as needed insomnia No Start Date 07/24/2017 Inactive Fish Oil 1,000 mg Cap RxNorm: 1 Capsule(s) PO daily No Start Date 04/24/2018 Inactive ProAir HFA 90 mcg/ac tuation Aerosol Inhaler RxNorm: 8494816 2 INH Q6 PRN No Start Date 04/22/2012 Inactive chlordiazepoxide-cli dinium 5 mg-2.5 mg Cap RxNorm: 700924 1 Capsule(s) PO PRN No Start Date 07/09/2011 Inactive q 12 hours prn Butrans 5 mcg/hour T ransderm Patch RxNorm: 104751 1 Patch TD weekly No Start Date 05/26/2012 Inactive Lactobacillus acidop hilus tablet RxNorm: 4 Tablet(s) PO daily No Start Date 01/03/2017 Inactive Librax (with clidini um) 5 mg-2.5 mg capsule RxNorm: 872590 1 Capsule(s) PO BID No Start Date 04/18/2012 Inactive Nexium 40 mg capsule ,delayed release RxNorm: 433482 Capsule(s) PO PRN No Start Date 10/12/2014 Inactive Tylenol Extra Streng th 500 mg tablet RxNorm: 130782 1 Tablet(s) PO BID as needed for pain No Start Date 04/24/2018 Inactive Premarin 0.625 mg/gr am Vaginal Cream RxNorm: 235369 Gram(s) VAG No Start Date 03/12/2012 Inactive three times a week, small amt to vaginal tissuesample given metoprolol succinate ER 50 mg tablet,extended release 24 hr RxNorm: 481665 1 Tablet(s) PO daily No Start Date 03/10/2012 Inactive Zithromax Z-Hebert 250 mg tablet RxNorm: 102817 Tablet(s) PO UD No Start Date 08/13/2014 Inactive albuterol sulfate HF A 90 mcg/actuation aerosol inhaler RxNorm: 9824471 1 or2 Puff(s) INH Q4 PRN No Start Date 05/10/2014 Inactive Xanax 0.25 mg Tab RxNorm: 209997 1/2-1 Tablet(s) PO Q8 PRN No Start Date 03/12/2012 Inactive metoprolol succinate ER 25 mg tablet,extended release 24 hr RxNorm: 261283 1 Tablet(s) PO daily No Start Date 04/20/2013 Inactive Zithromax Z-Hebert 250 mg tablet RxNorm: 425792 1 Tablet(s) PO UD No Start Date 08/10/2016 Inactive Z PACK DIRECTED calcium carbonate 60 0 mg (1,500 mg) Tab RxNorm: 507778 1 Tablet(s) PO BID No Start Date 01/03/2017 Inactive albuterol sulfate HF A 90 mcg/Actuation Aerosol Inhaler RxNorm: 5914360 1-2 Puff(s) INH Q4 PRN No Start Date 03/11/2012 Inactive Vitamin D3 2,000 uni t capsule RxNorm: 566699 1 Capsule(s) PO daily No Start Date 10/12/2014 Inactive Colace 100 mg Cap RxNorm: 4991087 1 Capsule(s) PO BID No Start Date 01/17/2016 Inactive Neurontin 600 mg tablet RxNorm: 534915 1 Tablet(s) PO Q8 PRN No Start Date 06/09/2013 Inactive Lomotil 2.5 mg-0.025 mg tablet RxNorm: 0841748 1 Tablet(s) PO No Start Date 06/14/2014 Inactive one after each loose bm limit 8 per day Micardis 80 mg Tab RxNorm: 392723 1 Tablet(s) PO daily No Start Date 12/03/2011 Inactive Pyridium 200 mg tablet RxNorm: 8614717 1 Tablet(s) PO Q8 PRN No Start Date 09/10/2012 Inactive Medication Administered Medication Codes Instruc tions Start Date Status Kenalog 40 mg/mL suspension for injection RxNorm: 6585183 1M08/09/2017 N o longer Active ceftriaxone 500 mg solution for injection RxNorm: 8075572 08/09/2017 No longer A ctive Kenalog 40 mg/mL suspension for injection RxNorm: 0934454 1M01/04/2017 N o longer Active Kenalog 40 mg/mL suspension for injection RxNorm: 6475315 Milliliter 08/23/2016 No longer Active Rocephin 500 mg solution for injection RxNorm: 817026 1Milliliter 05/07/2014 N o longer Active Kenalog 40 mg/mL suspension for injection RxNorm: 8649278 Milliliter 12/26/2013 No longer Active Rocephin 500 mg solution for injection RxNorm: 201517 12/26/2013 No longer A ctive Kenalog 40 mg/mL suspension for injection RxNorm: 5380488 Milliliter 11/12/2013 No longer Active Rocephin 500 mg solution for injection RxNorm: 173491 1Milliliter 10/09/2013 N o longer Active Kenalog 40 mg/mL Susp for Injection RxNorm: 1437876 1Mliter 11/21/2012 N o longer Active Rocephin 500 mg Solution for Injection RxNorm: 4950243 08/23/2011 No longer A ctive triamcinolone acetonide 40 mg/mL Susp for Injection RxNorm: 1253534 1Mter 04/19/2011 No longer Active Immunizations Vaccine [...] 11/12/2013 Laboratory exam ordered as part of [facility] general medical examination ICD-9: V72.62 11/12/2013 [...] Item Item Code Result Date Comp Metabolic Qal299 NA 139 mEq/L 05/29/2018 Comp Metabolic Ejl063 K 4.1 mEq/L 05/29/2018 Comp Metabolic Zjd376 CL 99 mEq/L 05/29/2018 Comp Metabolic Uvd407 CO2 30.0 mEq/L 05/29/2018 Comp Metabolic Ylr742 AN ION GAP 14 05/29/2018 Comp Metabolic Azu780 GL UCOSE 107 mg/dL 05/29/2018 Comp Metabolic Yii320 Cr eat 0.6 mg/dL 05/29/2018 Comp Metabolic Mpq365 eG FR 95 ml/min/1.73m2 05/29 Comp Metabolic Eol733 BUN 15 mg/dL 05/29/2018 Comp Metabolic Uux672 B/ C Ratio 23.4 Ratio 05/29/2018 Comp Metabolic Nfc264 CA LCIUM 9.4 mg/dL 05/29/2018 Comp Metabolic Zyd765 AL K PHOS 52 U/L 05/29/2018 Comp Metabolic Tea028 T(SGOT) 16 U/L 05/29/2018 Comp Metabolic Jcd059 AL T(SGPT) 12 U/L 05/29/2018 Comp Metabolic Gjl231 BI LI T 1.1 mg/dL 05/29/2018 Comp Metabolic Cve551 AL BUMIN 4.0 g/dL 05/29/2018 Comp Metabolic Myr907 TP RO 6.5 g/dL 05/29/2018 Comp Metabolic Uyi025 GL OB 2.5 g/dL 05/29/2018 Comp Metabolic Zbp208 A/ G Ratio 1.6 Ratio 05/29/2018 Comp Metabolic Hba509 Os mo 279 mOsmo 05/29/2018 Cbc With [...] 28.9 pg 05/29/2018 Cbc With Differential Ord2 Zavala% 9.0 % 05/29/2018 Cbc With Differential Ord2 [...] 2.05 K/ul 05/29/2018 Cbc With Differential Ord2 Zavala ABS# 0.7 K/ul 05/29/2018 Cbc With Differential Ord2 Eos ABS# 0.2 K/ul 05/29/2018 Cbc With Differential Ord2 Baso ABS# 0.0 K/ul 05/29/2018 Tsh Ord6 TSH (3rd IS) 2.05 uIU/mL 05/29/2018 Lipid Ord30 CHOL 191 mg/dL 05/29/2018 Lipid Ord30 HDL 68.0 mg/dl 05/29/2018 Lipid Ord30 TRIG 138 mg/dL 05/29/2018 Lipid Ord30 LDL 95 mg/dL 05/29/2018 Lipid Ord30 C/HDL 2.8 Ratio 05/29/2018 Free T4 Uho587 FREE T4 0.93 ng/dL 05/29/2018 Free T4 Jns298 FREE T4 0.90 ng/dL 09/12/2017 Cbc With [...] 29.3 pg 09/12/2017 Cbc With Differential Ord2 Zavala% 8.7 % 09/12/2017 Cbc With Differential Ord2 [...] 2.72 K/ul 09/12/2017 Cbc With Differential Ord2 Zavala ABS# 1.2 K/ul 09/12/2017 Cbc With Differential Ord2 Eos ABS# 0.3 K/ul 09/12/2017 Cbc With Differential Ord2 Baso ABS# 0.1 K/ul 09/12/2017 Comp Metabolic Phq186 NA 140 mEq/L 09/12/2017 Comp Metabolic Qis957 K 4.3 mEq/L 09/12/2017 Comp Metabolic Lqp827 CL 99 mEq/L 09/12/2017 Comp Metabolic Tfu412 CO2 33.0 mEq/L 09/12/2017 Comp Metabolic Eah899 AN ION GAP 12 09/12/2017 Comp Metabolic Pva762 GL UCOSE 92 mg/dL 09/12/2017 Comp Metabolic Jpl364 Cr eat 0.7 mg/dL 09/12/2017 Comp Metabolic Hjq710 eG FR 84 ml/min/1.73m2 09/12 Comp Metabolic Ywd759 BUN 18 mg/dL 09/12/2017 Comp Metabolic Vcg633 B/ C Ratio 25.4 Ratio 09/12/2017 Comp Metabolic Ltw178 CA LCIUM 9.3 mg/dL 09/12/2017 Comp Metabolic Xib280 AL K PHOS 64 U/L 09/12/2017 Comp Metabolic Uzj204 T(SGOT) 13 U/L 09/12/2017 Comp Metabolic Hrp653 AL T(SGPT) 12 U/L 09/12/2017 Comp Metabolic Vgi183 BI LI T 0.7 mg/dL 09/12/2017 Comp Metabolic Xac107 AL BUMIN 4.0 g/dL 09/12/2017 Comp Metabolic Tgt749 TP RO 6.3 g/dL 09/12/2017 Comp Metabolic Rtw188 GL OB 2.3 g/dL 09/12/2017 Comp Metabolic Uff450 A/ G Ratio 1.8 Ratio 09/12/2017 Comp Metabolic Wxb795 Os mo 281 mOsmo 09/12/2017 Lipid Ord30 [...] 28.8 pg 03/09/2016 Cbc With Differential Ord2 Zavala% 8.5 % 03/09/2016 Cbc With Differential Ord2 [...] 2.38 K/ul 03/09/2016 Cbc With Differential Ord2 Zavala ABS# 0.8 K/ul 03/09/2016 Cbc With Differential Ord2 Eos ABS# 0.2 K/ul 03/09/2016 Cbc With Differential Ord2 Baso ABS# 0.1 K/ul 03/09/2016 Comp Metabolic Lmz197 NA 138 mEq/L 03/09/2016 Comp Metabolic Pzo498 K 4.5 mEq/L 03/09/2016 Comp Metabolic Rrv836 CL 100 mEq/L 03/09/2016 Comp Metabolic Qld595 CO2 33.0 mEq/L 03/09/2016 Comp Metabolic Pej213 AN ION GAP 10 03/09/2016 Comp Metabolic Wpj011 GL UCOSE 94 mg/dL 03/09/2016 Comp Metabolic Mql041 Cr eat 0.6 mg/dL 03/09/2016 Comp Metabolic Wsr354 eG FR 106 ml/min/1.73m2 02/24 Comp Metabolic Bsa723 BUN 10 mg/dL 03/09/2016 Comp Metabolic Qah459 B/ C Ratio 17.2 Ratio 03/09/2016 Comp Metabolic Cor930 CA LCIUM 9.2 mg/dL 03/09/2016 Comp Metabolic Fux719 AL K PHOS 64 U/L 03/09/2016 Comp Metabolic Zzt543 T(SGOT) 20 U/L 03/09/2016 Comp Metabolic Jmo319 AL T(SGPT) 11 U/L 03/09/2016 Comp Metabolic Ges428 BI LI T 0.9 mg/dL 03/09/2016 Comp Metabolic Rtm365 AL BUMIN 4.0 g/dL 03/09/2016 Comp Metabolic Xzy146 TP RO 6.1 g/dL 03/09/2016 Comp Metabolic Osr994 GL OB 2.1 g/dL 03/09/2016 Comp Metabolic Vcc141 A/ G Ratio 1.9 Ratio 03/09/2016 Comp Metabolic Owo822 Os mo 274 mOsmo 03/09/2016 Free T4 Med373 FREE T4 0.90 ng/dL 03/09/2016 Lipid Ord30 [...] hTSH II 3.25 uIU/mL 09/07/2015 Free T4 Myu528 FREE T4 0.79 ng/dL 09/07/2015 Comp Metabolic Lqx241 NA 137 mEq/L 09/07/2015 Comp Metabolic Ryv583 K 4.0 mEq/L 09/07/2015 Comp Metabolic Lqo680 CL 98 mEq/L 09/07/2015 Comp Metabolic Uug373 CO2 30.0 mEq/L 09/07/2015 Comp Metabolic Fiv789 AN ION GAP 13 09/07/2015 Comp Metabolic Xcb240 GL UCOSE 101 mg/dL 09/07/2015 Comp Metabolic Zde421 Cr eat 0.6 mg/dL 09/07/2015 Comp Metabolic Vmh494 eG FR 111 ml/min/1.73m2 08/27 Comp Metabolic Jsj579 BUN 16 mg/dL 09/07/2015 Comp Metabolic Fsv479 B/ C Ratio 28.6 Ratio 09/07/2015 Comp Metabolic Ygq425 CA LCIUM 9.4 mg/dL 09/07/2015 Comp Metabolic Gei795 AL K PHOS 68 U/L 09/07/2015 Comp Metabolic Opx351 T(SGOT) 16 U/L 09/07/2015 Comp Metabolic Tdf925 AL T(SGPT) 12 U/L 09/07/2015 Comp Metabolic Lau454 BI LI T 0.9 mg/dL 09/07/2015 Comp Metabolic Dsx047 AL BUMIN 4.1 g/dL 09/07/2015 Comp Metabolic Iws523 TP RO 6.5 g/dL 09/07/2015 Comp Metabolic Qyy192 GL OB 2.4 g/dL 09/07/2015 Comp Metabolic Wmm403 A/ G Ratio 1.7 Ratio 09/07/2015 Comp Metabolic Jcc987 Os mo 275 mOsmo 09/07/2015 Cbc With [...] Differential Ord2 RDW 14.4 % 09/07/2015 TSH 1668541 TSH 0.920 uIU/ML 08/28/2014 CBC 1365734 WBC 12.5 10e9/L 08/28/2014 CBC 1574424 RBC 3.44 10e12/L 08/28/2014 CBC 5066750 HGB 10.3 g/dL 08/28/2014 CBC 3460235 HCT DET 33.9 % 08/28/2014 CBC 6811179 MCV 98.5 fL 08/28/2014 CBC 4340340 MCH 29.9 pg 08/28/2014 CBC 4606343 MCHC 30.4 g/dL 08/28/2014 CBC 5137692 PLT 412 10e9/L 08/28/2014 CBC 3711348 MPV 10.2 fL 08/28/2014 CBC 2055059 NNEKA % 68.5 % 08/28/2014 CBC 1231387 LY % 20.8 % 08/28/2014 CBC 4520456 MON % 9.9 % 08/28/2014 CBC 3811625 EOS % 0.6 % 08/28/2014 CBC 9475032 BASO % 0.2 % 08/28/2014 CBC 6276395 RDW 15.8 % 08/28/2014 CBC 2837368 ABS NNEKA 8.56 10e9/L 08/28/2014 CBC 2354491 ABS LYMPH 2.60 10e9/L 08/28/2014 CBC 4229396 ABS MONO 1.24 10e9/L 08/28/2014 CBC 0196480 ABS EOS 0.08 10e9/L 08/28/2014 CBC 5989224 ABS BASO 0.03 10e9/L 08/28/2014 CBC 1806110 RDW-SD 55.4 fL 08/28/2014 GFR CALC 3017980 GFR AA >60 ML/MIN 08/28/2014 GFR CALC 6699657 GFR NON -AA >60 ML/MIN 08/28/2014 LIPID GRP 6611385 HDL TE ST 69 MG/DL 08/28/2014 LIPID GRP 5921654 TRIG 158 MG/DL 08/28/2014 LIPID GRP 9746490 TEST L DL 96 MG/DL 08/28/2014 LIPID GRP 9184699 CHOL 197 MG/DL 08/28/2014 LIPID GRP RCHOL/ HDL 2.86 RATIO 08/28/2014 LIPID GRP NON-HD L CH 128 MG/DL 08/28/2014 CHEM 14 3856269 AST 14 U/L 08/28/2014 CHEM 14 1539628 ALT 13 IU/L 08/28/2014 CHEM 14 7424804 BUN 15 MG/DL 08/28/2014 CHEM 14 4469312 ALBUMIN 4.2 GM/DL 08/28/2014 CHEM 14 9018749 CHLORIDE 98 MMOL/L 08/28/2014 CHEM 14 0589767 BILI TOT 1.2 MG/DL 08/28/2014 CHEM 14 2536318 ALK PHOS 68 U/L 08/28/2014 CHEM 14 0737172 SODIUM 137 MMOL/L 08/28/2014 CHEM 14 6947331 CREATINI NE 0.68 MG/DL 08/28/2014 CHEM 14 3593204 CALCIUM 9.1 MG/DL 08/28/2014 CHEM 14 7446066 POTASSIUM 3.7 MMOL/L 08/28/2014 CHEM 14 9440749 PROT TOT 6.2 GM/DL 08/28/2014 CHEM 14 4741563 GLUCOSE 91 MG/DL 08/28/2014 CHEM 14 3380093 BICARB 31 MMOL/L 08/28/2014 CHEM 14 1352742 ANION GAP 8 MEQ/L 08/28/2014 FREE T4 0594449 FREE T4 1.44 NG/DL 08/28/2014 LIPID GRP HDL TE ST 73 MG/DL 04/16/2014 LIPID GRP TRIG 131 MG/DL 04/16/2014 LIPID GRP TEST L DL 99 MG/DL 04/16/2014 LIPID GRP 0188524 CHOL 198 MG/DL 04/16/2014 LIPID GRP 8768320 RCHOL/ HDL 2.71 RATIO 04/16/2014 LIPID GRP NON-HD L CH 125 MG/DL 04/16/2014 CHEM 14 6042471 AST 17 U/L 04/14/2014 CHEM 14 5133711 ALT 17 IU/L 04/14/2014 CHEM 14 3144315 BUN 15 MG/DL 04/14/2014 CHEM 14 7821769 ALBUMIN 4.3 GM/DL 04/14/2014 CHEM 14 7567725 CHLORIDE 96 MMOL/L 04/14/2014 CHEM 14 1475202 BILI TOT 0.9 MG/DL 04/14/2014 CHEM 14 1470636 ALK PHOS 65 U/L 04/14/2014 CHEM 14 9632147 SODIUM 135 MMOL/L 04/14/2014 CHEM 14 4503274 CREATINI NE 0.69 MG/DL 04/14/2014 CHEM 14 6183962 CALCIUM 9.5 MG/DL 04/14/2014 CHEM 14 8489426 POTASSIUM 4.1 MMOL/L 04/14/2014 CHEM 14 7118806 PROT TOT 6.6 GM/DL 04/14/2014 CHEM 14 5787652 GLUCOSE 104 MG/DL 04/14/2014 CHEM 14 6023514 BICARB 34 MMOL/L 04/14/2014 CHEM 14 8773752 ANION GAP 5 MEQ/L 04/14/2014 A1C HPLC 6101403 A1C HPLC 76331-1 5.0 % 04/14/2014 TSH 8760841 TSH 2.140 uIU/ML 04/14/2014 FREE T4 0062351 FREE T4 1.56 NG/DL 04/14/2014 GFR CALC 1169885 GFR AA >60 ML/MIN 04/14/2014 GFR CALC 7957138 GFR NON -AA >60 ML/MIN 04/14/2014 CBC 0337417 WBC 12.8 10e9/L 04/14/2014 CBC 7187845 RBC 4.44 10e12/L 04/14/2014 CBC 3907615 HGB 13.2 g/dL 04/14/2014 CBC 6194339 HCT DET 41.4 % 04/14/2014 CBC 9332685 MCV 93.2 fL 04/14/2014 CBC 0431213 MCH 29.7 pg 04/14/2014 CBC 4252137 MCHC 31.9 g/dL 04/14/2014 CBC 0039905 PLT 383 10e9/L 04/14/2014 CBC 2350677 MPV 10.1 fL 04/14/2014 CBC 6997474 NNEKA % 65.5 % 04/14/2014 CBC 7120868 LY % 23.0 % 04/14/2014 CBC 3388946 MON % 9.9 % 04/14/2014 CBC 2366918 EOS % 1.3 % 04/14/2014 CBC 5915588 BASO % 0.3 % 04/14/2014 CBC 4588142 RDW 13.7 % 04/14/2014 CBC 4549587 ABS NNEKA 8.38 10e9/L 04/14/2014 CBC 2631522 ABS LYMPH 2.94 10e9/L 04/14/2014 CBC 0721188 ABS MONO 1.27 10e9/L 04/14/2014 CBC 8770019 ABS EOS 0.17 10e9/L 04/14/2014 CBC 8242689 ABS BASO 0.04 10e9/L 04/14/2014 CBC 3073480 RDW-SD 45.9 fL 04/14/2014 A1C HPLC 0760555 A1C HPLC 57008-0 4.9 % 11/13/2013 CHEM 14 3913009 AST 15 U/L 11/12/2013 CHEM 14 2257704 ALT 14 IU/L 11/12/2013 CHEM 14 6140429 BUN 14 MG/DL 11/12/2013 CHEM 14 5312415 ALBUMIN 4.3 GM/DL 11/12/2013 CHEM 14 4065184 CHLORIDE 101 MMOL/L 11/12/2013 CHEM 14 9485440 BILI TOT 0.9 MG/DL 11/12/2013 CHEM 14 8925900 ALK PHOS 67 U/L 11/12/2013 CHEM 14 8808958 SODIUM 139 MMOL/L 11/12/2013 CHEM 14 0968967 CREATINI NE 0.67 MG/DL 11/12/2013 CHEM 14 9862855 CALCIUM 9.5 MG/DL 11/12/2013 CHEM 14 2689447 POTASSIUM 4.1 MMOL/L 11/12/2013 CHEM 14 0579927 PROT TOT 6.5 GM/DL 11/12/2013 CHEM 14 6766746 GLUCOSE 102 MG/DL 11/12/2013 CHEM 14 8373911 BICARB 30 MMOL/L 11/12/2013 CHEM 14 3319075 ANION GAP 8 MEQ/L 11/12/2013 GFR CALC 3811136 GFR AA >60 ML/MIN 11/12/2013 GFR CALC 0886971 GFR NON -AA >60 ML/MIN 11/12/2013 TSH 0413160 TSH 2.445 uIU/ML 11/12/2013 FREE T4 5771024 FREE T4 1.09 NG/DL 11/12/2013 CBC 7481134 WBC 7.6 10e9/L 11/12/2013 CBC 7403773 RBC 4.42 10e12/L 11/12/2013 CBC 3969076 HGB 13.1 g/dL 11/12/2013 CBC 6427593 HCT DET 41.2 % 11/12/2013 CBC 1233087 MCV 93.2 fL 11/12/2013 CBC 0519180 MCH 29.6 pg 11/12/2013 CBC 4391217 MCHC 31.8 g/dL 11/12/2013 CBC 4060887 PLT 314 10e9/L 11/12/2013 CBC 6748854 MPV 10.4 fL 11/12/2013 CBC 8112751 NNEKA % 59.8 % 11/12/2013 CBC 6515873 LY % 28.1 % 11/12/2013 CBC 1966199 MON % 9.5 % 11/12/2013 CBC 7002140 EOS % 1.8 % 11/12/2013 CBC 0486734 BASO % 0.8 % 11/12/2013 CBC 4305354 RDW 13.8 % 11/12/2013 CBC 2195671 ABS NNEKA 4.54 10e9/L 11/12/2013 CBC 4560892 ABS LYMPH 2.14 10e9/L 11/12/2013 CBC 3399053 ABS MONO 0.72 10e9/L 11/12/2013 CBC 8855360 ABS EOS 0.14 10e9/L 11/12/2013 CBC 5882176 ABS BASO 0.06 10e9/L 11/12/2013 CBC 9475167 RDW-SD 46.0 fL 11/12/2013 LIPID GRP HDL TE ST 66 MG/DL 11/12/2013 LIPID GRP 2820256 TRIG 130 MG/DL 11/12/2013 LIPID GRP 9549674 TEST L DL 108 MG/DL 11/12/2013 LIPID GRP CHOL 200 MG/DL 11/12/2013 LIPID GRP RCHOL/ HDL 3.03 RATIO 11/12/2013 HS ENE ZOS 0430365 HS VA R ZOS IMMUNE 04/04/2013 A1C 2448619 A1C HPLC 47055-0 5.2 % 04/03/2013 GFR CALC 6793462 GFR AA >60 ML/MIN 03/31/2013 GFR CALC 4634441 GFR NON -AA >60 ML/MIN 03/31/2013 TSH 6254076 TSH 2.689 uIU/ML 03/31/2013 LIPID GRP 8115724 HDL TE ST 63 MG/DL 03/31/2013 LIPID GRP 9857116 TRIG 157 MG/DL 03/31/2013 LIPID GRP 7979432 TEST L DL 98 MG/DL 03/31/2013 LIPID GRP 6865329 CHOL 192 MG/DL 03/31/2013 LIPID GRP RCHOL/ HDL 3.05 RATIO 03/31/2013 FREE T4 4215841 FREE T4 1.19 NG/DL 03/31/2013 CHEM 14 7865377 AST 16 U/L 03/31/2013 CHEM 14 5813143 ALT 12 IU/L 03/31/2013 CHEM 14 1520822 BUN 17 MG/DL 03/31/2013 CHEM 14 3027387 ALBUMIN 4.5 GM/DL 03/31/2013 CHEM 14 8285157 CHLORIDE 98 MMOL/L 03/31/2013 CHEM 14 0540311 BILI TOT 0.7 MG/DL 03/31/2013 CHEM 14 3138632 ALK PHOS 53 U/L 03/31/2013 CHEM 14 4633741 SODIUM 137 MMOL/L 03/31/2013 CHEM 14 1177409 CREATINI NE 0.66 MG/DL 03/31/2013 CHEM 14 3791234 CALCIUM 9.6 MG/DL 03/31/2013 CHEM 14 6934292 POTASSIUM 4.2 MMOL/L 03/31/2013 CHEM 14 9833004 PROT TOT 6.7 GM/DL 03/31/2013 CHEM 14 7959645 GLUCOSE 101 MG/DL 03/31/2013 CHEM 14 8254706 BICARB 33 MMOL/L 03/31/2013 CHEM 14 4216577 ANION GAP 6 MEQ/L 03/31/2013 CBC 9903469 WBC 7.5 10e9/L 03/31/2013 CBC 2196841 RBC 4.39 10e12/L 03/31/2013 CBC 8644604 HGB 13.0 g/dL 03/31/2013 CBC 1614917 HCT DET 40.2 % 03/31/2013 CBC 4341450 MCV 91.6 fL 03/31/2013 CBC 3681994 MCH 29.6 pg 03/31/2013 CBC 6073716 MCHC 32.3 g/dL 03/31/2013 CBC 3876908 PLT 305 10e9/L 03/31/2013 CBC 7627032 MPV 10.4 fL 03/31/2013 CBC 0389783 NNEKA % 56.8 % 03/31/2013 CBC 6965119 LY % 30.3 % 03/31/2013 CBC 0768706 MON % 9.8 % 03/31/2013 CBC 6154335 EOS % 2.3 % 03/31/2013 CBC 1994869 BASO % 0.8 % 03/31/2013 CBC 7739716 RDW 13.2 % 03/31/2013 CBC 2450448 ABS NNEKA 4.26 10e9/L 03/31/2013 CBC 9442897 ABS LYMPH 2.27 10e9/L 03/31/2013 CBC 4508611 ABS MONO 0.74 10e9/L 03/31/2013 CBC 1768081 ABS EOS 0.17 10e9/L 03/31/2013 CBC 3531656 ABS BASO 0.06 10e9/L 03/31/2013 CBC 5144334 RDW-SD 43.2 fL 03/31/2013 LIPID GRP HDL TE ST 49 MG/DL 09/11/2012 LIPID GRP TRIG 134 MG/DL 09/11/2012 LIPID GRP TEST L DL 81 MG/DL 09/11/2012 LIPID GRP CHOL 157 MG/DL 09/11/2012 LIPID GRP RCHOL/ HDL 3.20 RATIO 09/11/2012 TSH 3811965 TSH 2.118 uIU/ML 09/11/2012 CBC 7506926 WBC 7.5 10e9/L 09/11/2012 CBC 9330688 RBC 3.99 10e12/L 09/11/2012 CBC 9044115 HGB 11.7 g/dL 09/11/2012 CBC 3642353 HCT DET 37.7 % 09/11/2012 CBC 2592658 MCV 94.5 fL 09/11/2012 CBC 6636018 MCH 29.3 pg 09/11/2012 CBC 4278650 MCHC 31.0 g/dL 09/11/2012 CBC 7269909 PLT 384 10e9/L 09/11/2012 CBC 2253441 MPV 11.0 fL 09/11/2012 CBC 1678951 NNEKA % 51.7 % 09/11/2012 CBC 1570223 LY % 35.2 % 09/11/2012 CBC 4146747 MON % 10.4 % 09/11/2012 CBC 9374066 EOS % 2.3 % 09/11/2012 CBC 3169861 BASO % 0.4 % 09/11/2012 CBC 8887348 RDW 14.2 % 09/11/2012 CBC 9716881 ABS NNEKA 3.88 10e9/L 09/11/2012 CBC 2977237 ABS LYMPH 2.64 10e9/L 09/11/2012 CBC 4925248 ABS MONO 0.78 10e9/L 09/11/2012 CBC 3471627 ABS EOS 0.17 10e9/L 09/11/2012 CBC 1020873 ABS BASO 0.03 10e9/L 09/11/2012 CBC 2663266 RDW-SD 47.1 fL 09/11/2012 CHEM 14 1386261 AST 16 U/L 09/11/2012 CHEM 14 5037952 ALT 15 IU/L 09/11/2012 CHEM 14 8051905 BUN 11 MG/DL 09/11/2012 CHEM 14 4755094 ALBUMIN 4.2 GM/DL 09/11/2012 CHEM 14 5918355 CHLORIDE 101 MMOL/L 09/11/2012 CHEM 14 9898703 BILI TOT 0.8 MG/DL 09/11/2012 CHEM 14 0930540 ALK PHOS 57 U/L 09/11/2012 CHEM 14 9416806 SODIUM 141 MMOL/L 09/11/2012 CHEM 14 9207271 CREATINI NE 0.62 MG/DL 09/11/2012 CHEM 14 1680401 CALCIUM 9.5 MG/DL 09/11/2012 CHEM 14 4704470 POTASSIUM 4.7 MMOL/L 09/11/2012 CHEM 14 4146165 PROT TOT 6.6 GM/DL 09/11/2012 CHEM 14 4765182 GLUCOSE 90 MG/DL 09/11/2012 CHEM 14 6597073 BICARB 32 MMOL/L 09/11/2012 CHEM 14 4887748 ANION GAP 8 MEQ/L 09/11/2012 A1C HPLC 9013294 A1C HPLC 16844-3 4.5 % 09/11/2012 GFR CALC 0642867 GFR AA >60 ML/MIN 09/11/2012 GFR CALC 1761117 GFR NON -AA >60 ML/MIN 09/11/2012 FREE T4 6116250 FREE T4 1.30 NG/DL 09/11/2012 BMP GLUCOSE 93 MG/DL 04/16/2012 BMP CREATININE 0.64 MG/DL 04/16/2012 BMP BUN 12 MG/DL 04/16/2012 BMP 5319363 SODIUM 139 MMOL/L 04/16/2012 BMP 4770280 POTASSIUM 4.1 MMOL/L 04/16/2012 BMP CHLORIDE 99 MMOL/L 04/16/2012 BMP BICARB 32 MMOL/L 04/16/2012 BMP 9335469 ANION GAP 8 MEQ/L 04/16/2012 BMP 7346407 CALCIUM 9.8 MG/DL 04/16/2012 CBC 8379901 WBC 8.5 10e9/L 04/16/2012 CBC 5590859 RBC 3.98 10e12/L 04/16/2012 CBC 8654183 HGB 11.5 g/dL 04/16/2012 CBC 0022927 HCT DET 36.7 % 04/16/2012 CBC 3320905 MCV 92.2 fL 04/16/2012 CBC 3654762 MCH 28.9 pg 04/16/2012 CBC 3832264 MCHC 31.3 g/dL 04/16/2012 CBC 9915498 PLT 321 10e9/L 04/16/2012 CBC 9318045 MPV 10.2 fL 04/16/2012 CBC 7657116 NNEKA % 64.3 % 04/16/2012 CBC 2107404 LY % 24.3 % 04/16/2012 CBC 4714890 MON % 9.0 % 04/16/2012 CBC 9620654 EOS % 1.9 % 04/16/2012 CBC 0834358 BASO % 0.5 % 04/16/2012 CBC 9326130 RDW 13.7 % 04/16/2012 CBC 8142305 ABS NNEKA 5.47 10e9/L 04/16/2012 CBC 2313198 ABS LYMPH 2.07 10e9/L 04/16/2012 CBC 2435767 ABS MONO 0.77 10e9/L 04/16/2012 CBC 6421079 ABS EOS 0.16 10e9/L 04/16/2012 CBC 6304545 ABS BASO 0.04 10e9/L 04/16/2012 CBC 5460428 RDW-SD 44.6 fL 04/16/2012 GFR CALC 1956272 GFR AA >60 ML/MIN 04/16/2012 GFR CALC 4937565 GFR NON -AA >60 ML/MIN 04/16/2012 URINALYSIS NONAUTO W/O SCOPE 72599 Specific [place] 1.015 DateTime(Free Text in [employer]) URINALYSIS NONAUTO W/O SCOPE 61379 PH 6.0 DateTime(Free Jim t in Apr[employer]) URINALYSIS NONAUTO W/O SCOPE 42261 GLUCOSE neg DateTime(Free Jim t in Aprima) URINALYSIS NONAUTO W/O SCOPE 49377 Protein neg DateTime(Free Jim t in Apr) URINALYSIS NONAUTO W/O SCOPE 85858 Blood 1+ DateTime(Free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 Diagnosis: ESSENTIAL HYPERTENSION[SNOMED: 81786007] Diagnosis: HYPERLIPIDEMIA[ICD9: 272.4] Diagnosis: HYPOTHYROIDISM[ICD9: 244.9] Diagnosis: Nocturnal hypoxaemia[ICD9: 799.02] Concepción Flanagan MD, [facility] CPT- 4: 59314 01/21/2014 ([id number]) 65427 EST. P ATIENT, LEVEL III Diagnosis: ESSENTIAL HYPERTENSION[SNOMED: 57836003] Diagnosis: Bradycardia[ICD9: 427.89] Concepción Flanagan MD, [facility] CPT-4: 49634 01/07/2014 ([id number]) 33837 EST. P ATIENT, LEVEL III Diagnosis: ACUTE URI[ICD9: 465.9] Diagnosis: COUGH[ICD9: 786.2] Chaparrita Flanagan MD, [facility] CPT-4: 95680 12/26/2013 ([id number]) 84156 EST. P ATIENT, LEVEL III Diagnosis: ALLERGIC RHINITIS[ICD9: 477.9] Diagnosis: HYPERLIPIDEMIA[ICD9: 272.4] Diagnosis: ESSENTIAL HYPERTENSION[SNOMED: 16100560] Diagnosis: ENCNTR LONG-RX USE NEC[ICD9: V58.69] Diagnosis: Laboratory exam ordered as part of routine general medical examination[ICD9: V72.62] Diagnosis: HYPOTHYROIDISM[ICD9: 244.9] [facility] CPT- 4: 20340 11/12/2013 ([id number]) 02066 EST. P ATIENT, LEVEL III Diagnosis: Acute maxillary sinusitis[ICD9: 461.0] [facility] CPT-4: 14353 10/09/2013 ([id number]) 46665 EST. P ATIENT, LEVEL III Diagnosis: ESSENTIAL HYPERTENSION[SNOMED: 46546112] Diagnosis: DYSURIA[ICD9: 788.1] Concepción Flanagan MD, [facility] CPT-4: 80257 04/03/2013 ([id number]) 07468 EST. P ATIENT, LEVEL III Diagnosis: ESSENTIAL HYPERTENSION[SNOMED: 71863626] Diagnosis: EDEMA[ICD9: 782.3] Concepción Flanagan MD, [facility] CPT-4: 37622 01/06/2013 ([id number]) 04568 EST. P ATIENT, LEVEL III Diagnosis: UNSPECIFIED ASTHMA[ICD9: 493.90] Diagnosis: Cough[ICD9: 786.2] Diagnosis: ALLERGIC RHINITIS[ICD9: 477.9] Concepción Flanagan MD, [facility] CPT-4: 69006 11/21/2012 ([id number]) 73020 EST. P ATIENT, LEVEL IV Diagnosis: ESSENTIAL HYPERTENSION[SNOMED: 12897059] Diagnosis: EDEMA[ICD9: 782.3] Concepción Flanagan MD, [facility] CPT-4: 44502 10/28/2012 ([id number]) 30515 EST. P ATIENT, LEVEL IV Diagnosis: ESSENTIAL HYPERTENSION[SNOMED: 35881258] Diagnosis: EDEMA[ICD9: 782.3] Diagnosis: Knee pain, right[ICD9: 719.46] Diagnosis: Urge incontinence[ICD9: 788.31] Concepción Flanagan MD, [facility] CPT-4: 17213 09/30/2012 ([id number]) 32411 EST. P ATIENT, LEVEL III Diagnosis: ESSENTIAL HYPERTENSION[SNOMED: 49245523] Concepción Flanagan MD, [facility] CPT-4: 08882 08/14/2012 ([id number]) 07951 EST. P ATIENT, LEVEL III Diagnosis: CELLULITIS OF LEG[ICD9: 682.6] Concepción Flanagan MD, [facility] CPT-4: 26067 08/05/2012 ([id number]) 53272 EST. P ATIENT, LEVEL IV Diagnosis: ESSENTIAL HYPERTENSION[SNOMED: 12025892] Diagnosis: EDEMA[ICD9: 782.3] Diagnosis: Constipation[ICD9: 564.00] Concepción Flanagan MD, [facility] CPT-4: 85432 07/15/2012 ([id number]) 64825 EST. P ATIENT, LEVEL III Diagnosis: Subungual contusion of toenail[ICD9: 924.3] Concepción Flanagan MD, [facility] CPT-4: 84974 05/27/2012 Postop follow up vis it related to original px Diagnosis: BENIGN ERLINDA SKIN ARM[ICD9: 216.6] Diagnosis: BENIGN ERLINDA SKIN TRUNK[ICD9: 216.5] Concepción Flanagan MD, [facility] CPT- 4: 10962 05/03/2012 ([id number]) 13295 EST. P ATIENT, LEVEL IV Diagnosis: ESSENTIAL HYPERTENSION[SNOMED: 45867799] Diagnosis: OA (osteoarthritis) of knee[ICD9: 715.96] Diagnosis: EDEMA[ICD9: 782.3] Concepción Flanagan MD, [facility] CPT-4: 45096 03/25/2012 25667 EST. PATIENT, LEVEL IV Diagnosis: ESSENTIAL HYPERTENSION[SNOMED: 87038820] Diagnosis: Abdominal bloating[ICD9: 787.3] Concepción Flanagan MD, [facility] CPT-4: 34651 03/12/2012 ([id number]) 07918 EST. P ATIENT, LEVEL IV Diagnosis: ESSENTIAL HYPERTENSION[SNOMED: 96425460] Diagnosis: EDEMA[ICD9: 782.3] Concepción Flanagan MD, [facility] CPT-4: 73259 01/23/2012 ([id number]) 54691 EST. P ATIENT, LEVEL III Diagnosis: Breast pain, left[ICD9: 611.71] Chaparrita Flanagan MD, [facility] CPT- 4: 40250 01/12/2012 ([id number]) 99799 EST. P ATIENT, LEVEL IV Diagnosis: ESSENTIAL HYPERTENSION[SNOMED: 47832037] Diagnosis: DEPRESSIVE DISORDER NEC[ICD9: 311] Diagnosis: ANXIETY STATE[ICD9: 300.00] Concepción Flanagan MD, [facility] CPT-4: 87021 12/25/2011 ([id number]) 67277 EST. P ATIENT, LEVEL IV Diagnosis: ESSENTIAL HYPERTENSION[SNOMED: 33684394] Diagnosis: EDEMA[ICD9: 782.3] Concepción Flanagan MD, [facility] CPT-4: 44802 12/04/2011 ([id number]) 22932 EST. P ATIENT, LEVEL IV Diagnosis: ESSENTIAL HYPERTENSION[SNOMED: 05024078] Diagnosis: DEPRESSIVE DISORDER NEC[ICD9: 311] Concepción Flanagan MD, [facility] CPT- 4: 77738 09/20/2011 13746 EST. PATIENT, LEVEL IV Diagnosis: Dysuria[ICD9: 788.1] Diagnosis: ESSENTIAL HYPERTENSION[SNOMED: 28229585] Diagnosis: Anxiety[ICD9: 300.00] Concepción Flanagan MD, [facility] CPT-4: 91681 09/06/2011 ([id number]) 58038 EST. P ATIENT, LEVEL IV Diagnosis: LUMBAGO[ICD9: 724.2] Diagnosis: ESSENTIAL HYPERTENSION[SNOMED: 24049681] Concepción Flanagan MD, [facility] CPT-4: 91659 08/30/2011 61938 EST. PATIENT, LEVEL III Diagnosis: ACUTE SINUSITIS[ICD9: 461.9] Diagnosis: Urinary frequency[ICD9: 788.41] Chaparrita Flanagan MD, [facility] CPT- 4: 76888 08/23/2011 21096 EST. PATIENT, LEVEL III Diagnosis: Lesion of labia[ICD9: 624.8] Chaparrita Flanagan MD, [facility] CPT- 4: 71667 08/09/2011 83720 EST. PATIENT, LEVEL IV Diagnosis: HYPOTHYROIDISM[ICD9: 244.9] Diagnosis: HYPERLIPIDEMIA[ICD9: 272.4] Diagnosis: BP (high blood pressure)[SNOMED: 93074809] Diagnosis: Knee pain, bilateral[ICD9: 719.46] Diagnosis: ESOPHAGEAL REFLUX[ICD9: 530.81] Concepción Flanagan MD, [facility] CPT-4: 40036 05/04/2011 26117 EST. PATIENT, LEVEL III Diagnosis: ACUTE URI[ICD9: 465.9] Diagnosis: Asthma[ICD9: 493.90] Diagnosis: Esophageal reflux[ICD9: 530.81] Chaparrita Flanagan MD, [facility] CPT- 4: 04338 04/19/2011 Plan of Care Planned Activity Notes [...] discharge. 05/02/2019 Appointment: Hayley London WPtel: [phone] [facility] (30 min) Complex 05/02/2019 Patient Education: [...] home. 04/01/2019 Appointment: Concepción Flanagan WPtel: [phone] [facility] (15 min) Moderate 04/01/2019 Patient Education: Patient [...] in bilateral SI joints today 03/11/2019 Appointment: Concepción Flanagan WPtel: [phone] [facility] (15 min) Moderate 03/11/2019 Patient Education: Patient [...] this time. 09/03/2018 Appointment: Concepción Flanagan WPtel: [facility] [place] (15 min) Moderate 09/03/2018 Patient Education: Patient [...] back. 05/29/2018 Appointment: Concepción Flanagan WPtel: [phone] [place] [place] (15 min) Moderate 05/29/2018 Patient Education: Patient Medication Summary Completed 05/29/2018 Care Plan: Referral Order SNOMED-CT : 954815068 Pending 05/29/2018 Visit Plan: Wound Instructions - [...] process. 02/06/2018 Appointment: Hayley London WPtel: [phone] [facility] (15 min) Moderate 02/06/2018 Patient Education: [...] medications. 01/23/2018 Appointment: Concepción Flanagan WPtel: [phone] [facility] (15 min) Moderate 01/23/2018 Patient Education: Patient Medication Summary Completed 01/23/2018 Visit Plan: Cough - improved - sinu sitis resolved. 09/26/2017 Appointment: Concepción Flanagan WPtel: [phone] [facility] (15 min) Moderate 09/26/2017 Patient Education: Patient Medication Summary Completed 09/26/2017 Visit Plan: Acute Maxillary Sinusit is - if not improving - pt would like to see an ENT - [facility] Tompkins in [place]. Treatment as follows: cefdinir - antibiotic twice [...] hydrocodone. 09/12/2017 Appointment: Concepción Flanagan WPtel: [phone] [facility] (15 min) Moderate 09/12/2017 Patient Education: Patient [...] spray. 08/31/2017 [phone] ([facility]) Complex 08/31/2017 Patient Education: Patient Medication Summary Completed 08/31/2017 Visit Plan: URI - Pt advised to inc rease fluids, vitamin C. Discussed natural and expected course of this diagnosis and need to alert me if symptoms do not follow expected course, or if any worse. RX sent to patient's pharmacy. 08/09/2017 Appointment: Chaparrita Arrieta WPtel: [phone] [phone] (30 min) Complex 08/09/2017 Patient Education: [...] hydrocodone. 05/07/2017 Appointment: Concepción Flanagan [facility]: [phone] [place] (15 min) Moderate 05/07/2017 Patient Education: Patient [...] care surrogate. 04/12/2017 Appointment: Hayley London [facility]Ptel[facility] [facility] - Annual Wellness Visit 04/12/2017 Patient Education: Patient Medication Summary Completed 04/12/2017 Appointment: Nurse Visit 02/15/2017 Patient Education: Patient Medication Summary Completed 02/15/2017 Visit Plan: Bnjfd-ldcnwatfkv-kfisn zpack when finished with cipro-follow up chest [...] day-follow up Sunday02/02/2017 Appointment: [facility]rita Arrieta [phone] (15 min) Moderate 02/02/2017 Patient Education: Patient Medication Summary Completed 02/02/2017 Patient Education: Obesity Completed 02/02/2017 Visit Plan: Sinusitis - Pt has acut e infection - pain in face, maxillary region, Pt informed to use decongestant, RX given to patient, sinus rinses also recommended. Call if symptoms do not show improvement. 01/15/2017 Appointment: Chaparrita Arrieta WPtel: [phone] [phone] (10 min) Simple 01/15/2017 Patient Education: [...] shot today 01/04/2017 Appointment: Concepción Flanagan WPtel: [phone] [place] (15 min) Moderate 01/04/2017 Patient Education: Patient [...] (lexapro). 09/07/2016 Appointment: Concepción Flanagan WPtel: [phone] [place] (30 min) Complex 09/07/2016 Patient Education: Patient [...] home. 07/06/2016 Appointment: Concepción Flanagan WPtel: [phone] [facility] (15 min) Moderate 07/06/2016 Patient Education: Patient [...] DAILY 06/08/2016 Appointment: Concepción Flanagan WPtel: [phone] [facility] (15 min) Moderate 06/08/2016 Patient Education: Patient [...] edema. 04/06/2016 Appointment: Concepción Flanagan [facility]Ptel: [phone] [place] (15 min) Moderate 04/06/2016 Patient Education: Patient [...] for Mikala. 01/18/2016 Appointment: Concepción Flanagan WPtel: [address] [place], [place] [address] (15 min) Moderate 01/18/2016 Patient Education: Patient [...] discuss with her son who is a [employer] - and consider re-evaluation for nasal pillows with her cpap since she could not tolerate a face mask cpap in the past. 12/25/2014 Appointment: Concepción Flanagan [facility]Ptel: [phone] [place] Follow up 12/25/2014 Patient Education: Patient Medication [...] home. 10/13/2014 Appointment: Concepción Flanagan WPtel: [phone] [place] Follow up 10/13/2014 Patient Education: Patient Medication [...] her . 08/28/2014 Appointment: Concepción Flanagan WPtel: [facility] Follow up 08/28/2014 Patient Education: Patient Medication [...] creatinine. 04/16/2014 Appointment: PanchitoConcepción wolff WPtel: [phone] [facility] Follow up 04/16/2014 Patient Education: Patient Medication Summary Completed 04/16/2014 Patient Education: Patient Medication Summary Completed 04/14/2014 Patient Education: Hypertension Completed 04/14/2014 Visit Plan: Wound Instructions - Pt was instruced to keep the wound clean, wash with antibacterial soap, use triple antibiotic ointment, call if redness, pustular drainage, or any other acute conerns. 01/27/2014 Appointment: Concepción Flanagan WPtel: [phone] [place] Surgical Procedure 01/27/2014 Patient Education: Patient Medication [...] home eval. 01/21/2014 Appointment: PanchitoDemi wolffy WPtel: [facility]5 [facility] Follow up 01/21/2014 Patient Education: Patient Medication Summary Completed 01/21/2014 Patient Education: Hypertension Completed 01/21/2014 Visit Plan: Hypotension - Bradycard ia - pt to stop her metroprolol - check bp and heart rate twice daily and monitor symptoms. Call if bp uncontrolled- or heart rate to elevated. 01/07/2014 Appointment: Panchito Concepción WPtel: [facility]5 [facility] Follow up 01/07/2014 Patient Education: Hypertension Completed [...] and swallow 11/12/2013 Appointment: Chaparrita Arrieta WPtel: [facility]5 [phone] Sick 11/12/2013 Patient Education: Patient Medication Summary Completed 11/12/2013 Patient Education: Hypertension Completed 11/12/2013 Visit Plan: Sinusitis - Pt has acut e infection - pain in face, maxillary region, Pt informed to use decongestant, RX given to patient, sinus rinses also recommended. Call if symptoms do not show improvement. 10/09/2013 Appointment: Chaparrita Arrieta WPtel: [facility]5 [phone] Sick 10/09/2013 Patient Education: Patient Medication [...] check UA 04/03/2013 Appointment: Concepción Flanagan WPtel: [phone] [place] Follow up 04/03/2013 Patient Education: Patient Medication Summary Completed 04/03/2013 Patient Education: Hypertension Completed 04/03/2013 Patient Education: Patient Medication Summary Completed 03/31/2013 Patient Education: Hypertension Completed 03/31/2013 Visit Plan: ua performed - sent for culture if indicated. 03/21/2013 Appointment: Concepción Flanagan WPtel: [facility]8 [facility] Lab Draw 03/21/2013 Patient Education: Patient Medication [...] edema. 01/06/2013 Appointment: Concepción Flanagan WPtel: [phone] [place] Follow up 01/06/2013 Patient Education: Patient Medication Summary Completed 01/06/2013 Patient Education: Hypertension Completed 01/06/2013 Visit Plan: Jsagjbgot-Xvljfp-nyqkml ms not well controlled- KENALOG injection today [...] peripheral edema. 10/28/2012 Appointment: Concepción Flanagan WPtel: [address] [place], [place] [phone] [place] Follow up 10/28/2012 Patient Education: Patient [...] treatment recommendations. 09/30/2012 Appointment: Concepción Flanagan WPtel: [address] [place], [place] [phone] [place] Follow up 09/30/2012 Patient Education: Patient Medication Summary Completed 09/30/2012 Patient Education: Hypertension Completed 09/30/2012 Appointment: Concepción Flanagan WPtel: [address] [place], [place] [phone] [place] Lab Draw 09/11/2012 Patient Education: Patient [...] - resolved 08/14/2012 Appointment: Concepción Flanagan WPtel: [address] [place], [place] [phone] Follow up 08/14/2012 Patient Education: Patient Medication Summary Completed 08/14/2012 Patient Education: Hypertension Completed 08/14/2012 Visit Plan: Cellulitis - start with generic Bactrim DS as directed, return to clinic as previously directed, call for acute change in symptoms, worsening redness, warmth, discharge. 08/05/2012 Appointment: Concepción Flanagan WPtel: [address] [place], [place] [phone] Follow up 08/05/2012 Patient Education: Patient Medication [...] soften stools. 07/15/2012 Appointment: Concepción Flanagan WPtel: [address] [place], [place] [phone] [facility] follow up 07/15/2012 Patient [...] the nail. 05/27/2012 Appointment: Concepción Flanagan WPtel: [address] [place], [place] [phone] [facility] 05/27/2012 Patient Education: Patient Medication Summary Completed 05/27/2012 Appointment: Chaparrita Arrieta WPtel: [address] [place], [place] [address] Follow up 05/16/2012 Visit Plan: Obesity - [...] Influenza vaccine 05/03/2012 Appointment: Chaparrita Arrieta WPtel: [facility]5 [place] [address] [place] Follow up 05/03/2012 Patient Education: Patient Medication Summary Completed 05/03/2012 Visit Plan: Wound Instructions - Pt was instruced to keep the wound clean, wash with antibacterial soap, use triple antibiotic ointment, call if redness, pustular drainage, or any other acute conerns. 04/23/2012 Appointment: Concepción Flanagan WPtel: [facility]5 [facility] [place] Surgical Procedure 04/23/2012 Patient Education: Patient Medication Summary Completed 04/23/2012 Appointment: Concepción Flanagan WPtel: [facility]5 [facility] [place] Lab Draw 04/16/2012 Patient Education: Patient [...] readings at home. Recommend follow up with law reporter for clearance before knee surgery. Will get [...] to thighs. 03/25/2012 Appointment: Concepción Flanagan WPtel: [facility] [place] 03/25/2012 Patient Education: Patient Medication Summary [...] of lesion. 03/12/2012 Appointment: Chaparrita Arrieta WPtel: [phone] [place] Other 03/12/2012 Patient Education: Patient [...] at home. 01/23/2012 Appointment: Concepción Flanagan WPtel: [facility]5 [facility] Other 01/23/2012 Patient Education: Patient Medication Summary Completed 01/23/2012 Patient Education: High Blood Pressure: Essential Hypertension Completed 01/23/2012 Visit Plan: Breast wghe-ejsk-ffrmop sed natural and expected course of this diagnosis and to alert me if symptoms do not follow expected course, or if any worse. Plan for diagnostic mammogram, in meantime, instructed patient to get more supportive bra, use anti-inflammatories and monitor symptoms. Patient verbalized understanding of plan. 01/12/2012 Appointment: Chaparrita Arrieta WPtel: [facility]5 [phone] Other 01/12/2012 Patient Education: Patient Medication [...] medications. 12/25/2011 Appointment: Concepción Flanagan WPtel: [phone] [facility] Other 12/25/2011 Patient Education: Patient Medication Summary [...] COMPRESSION SOCKS. 12/04/2011 Appointment: Concepción Flanagan WPtel: [facility] [place] Other 12/04/2011 Patient Education: Patient Medication Summary Completed 12/04/2011 Patient Education: High Blood Pressure: Essential Hypertension Completed 12/04/2011 Appointment: Chaparrita Arrieta WPtel: [phone] [place] Lab Draw 12/01/2011 Patient Education: Patient Medication Summary Completed 12/01/2011 Appointment: Concepción Flanagan WPtel: [phone] [place] Lab Draw 11/20/2011 Patient Education: Patient [...] acutely worsen. 09/20/2011 Appointment: Concepción Flanagan WPtel: [facility]2 [facility] Other 09/20/2011 Patient Education: Patient Medication Summary Completed 09/20/2011 Patient Education: High Blood Pressure: Essential Hypertension Completed 09/20/2011 Appointment: Concepción Flanagan WPtel: [facility]3 [facility]66[facility] Other 09/13/2011 Visit Plan: Hypertension [...] benefits of treament with the above medications. Vawthxg-dtgedrsr-OP negative 09/06/2011 Appointment: Chaparrita Arrieta WPtel: [facility]4 [phone] [place] Other 09/06/2011 Patient Education: Patient [...] they worsen. 08/30/2011 Appointment: Concepción Flanagan WPtel: [facility] Other 08/30/2011 Patient Education: Patient Medication [...] patient's pharmacy. 08/23/2011 Appointment: Chaparrita Arrieta WPtel: [address] [place], [place] [phone] Other 08/23/2011 Patient Education: Patient Medication Summary Completed 08/23/2011 Visit Plan: Labial cyst-discussed n atural and expected course of this diagnosis and to alert me if symtpoms do not follow expected course, or if any worse. Patient and verbalized understanding. 08/09/2011 Appointment: Chaparrita Arrieta WPtel: [address] [place], [place] [phone] Other 08/09/2011 Patient Education: Patient Medication Summary [...] not improving. 05/04/2011 Appointment: Concepción Flanagan WPtel: [facility]5 [facility] [place] Other 05/04/2011 Patient Education: Patient Medication [...] daily. 04/19/2011 Appointment: Chap[facility]rita Arrieta [phone] [place] Other 04/19/2011 Patient Education: Patient [...] discuss with her son who is a [employer] - and consider re-evaluation for nasal pillows [...] removed today Influenza vaccine . Hypertension - we ll controlled - [...] do not improve, or if any worse.. Vanaepipe-Spxhuu-ovorsaqc not well controlled-KENALOG injection today in the [...] - sen t for culture if indicated. cefdinir - antibioti c twice daily x 2 weeks diflucan antifungal one time daily x 2 weeks use your sinus rinse at least twice each morning and evening . Acute Maxillary Sinusitis - if not imp roving - pt would like to see an ENT - [facility] Tompkins in [place]. Treatment as follows: cefdinir - antibiotic twice [...] twice daily and monitor symptoms. . Breast gmcr-oydq-eupbcmcvr natural and expected course of this diagnosis [...] benefits of treament with the above medications. Ctcfnvr-fagqagzj-FJ negative RECOMMEND SHINGLES V ACCINE . Medicare [...] readings at home. Recommend follow up with law reporter for clearance before knee surgery. Will get [...] levaquin also sent to patient's pharmacy. . Znyic-mcxbwvyoql-u tart zpack when finished with cipro- follow [...]
--- OUTSIDE RECORDS SUMMARY | 2020-01-05 01:09 | XMS REPORT | CCD ---
Author Author Mikala Arrieta Organization Concepción Flanagan MD, [facility] Address [address] [place] [address] Phone Care Team Providers Care Vendette Name Role Phone Concepción Flanagan PP Unavailable CCM Unavailable Summary Purpose Interface Exchange Insurance Providers Payer name Policy type / Coverage type Covered alliance party ID Effective Begin Date Effective End Date WPS Medicare Part B Medicare Part B [id number] Unknown AARP Medicare Part B [id number] Unknown Family history Son Diagnosis Age At [...] M arried 04/19/[address]: 7660462 Quit over 10 years ago 40 pack/year [...] Codes Condition Status Onset Date Resolved Date Essential (primary) hypertension ICD-9: 401.1 ICD-10: I10 [...] Condition Codes Effectiv e Dates Condition Status Essential (primary) hypertension ICD-9: 401.1 ICD-10: I10 [...] Date Stop Date Sta tus Fill Instructions meloxicam 15 mg tablet RxNorm: 321461 TAKE ONE TABLET BY MOUTH DAILY 04/14/2019 07/06/2020 Ac tive Xanax 0.25 mg tablet RxNorm: 280951 1-2 Tablet(s) PO QHS as needed insomnia 03/14/2019 06/11/2019 Ac tive Centrum Silver Ultra Women's tablet RxNorm: Tablet(s) PO No Stop Date Active prednisone 10 mg tablet RxNorm: 482145 2 Tablet(s) PO daily 03/11/2019 03/15/2019 Inactive doxycycline hyclate 100 mg tablet RxNorm: 6470460 1 Tablet(s) PO BID 03/11/2019 03/20/2019 Inactive Klor-Con 10 mEq tabl et,extended release RxNorm: 358033 Tablet(s) TAKE ONE TA BLET BY MOUTH DAILY 03/05/2019 11/29/2019 Active Klor-Con 10 mEq tabl et,extended release RxNorm: 584260 Tablet(s) TAKE ONE TA BLET BY MOUTH DAILY 03/05/2019 03/04/2019 Inactive Lasix 40 mg tablet RxNorm: 881722 TAKE ONE TABLET BY MOUTH DAILY 12/24/2018 06/21/2019 Ac tive Crestor 10 mg tablet RxNorm: 666779 TAKE 1 TABLET BY MOUTH ON SUNDAY, , AND Sunday12/03/2018 05/31/2019 Active Atacand 16 mg tablet RxNorm: 188488 1 Tablet(s) PO daily 11/06/2018 10/31/2019 Active replaces benicar Atacand 16 mg tablet RxNorm: 432376 1 Tablet(s) PO daily 11/06/2018 11/05/2018 Inactive replaces benicar meloxicam 15 mg tablet RxNorm: 877052 TAKE ONE TABLET BY MOUTH DAILY 10/08/2018 04/13/2019 In active ProctoCream-HC 2.5 % rectal cream with applicator RxNorm: 173813 APPLY TO AFFECTED AREAS DIRECTED RTL 10/01/2018 No Stop Date Active Cartia XT 240 mg cap chad,extended release RxNorm: 869046 TAKE ONE CAPSULE BY M OUTH DAILY 09/23/2018 09/17/2019 Active Singulair 10 mg tablet RxNorm: 555044 TAKE ONE TABLET BY MOUTH EVERY DAY 09/06/2018 10/30/2019 Ac tive Klor-Con 10 mEq tabl et,extended release RxNorm: 929690 TAKE ONE TABLET BY [facility] TWICE A DAY 09/06/2018 03/04/2019 Inactive Xanax 0.25 mg tablet RxNorm: 469244 1-2 Tablet(s) PO QHS as needed insomnia 08/26/2018 11/22/2018 In active Voltaren 1 % topical gel RxNorm: 667828 APPLY TWO GRAMS TOPIC ALLY FOUR TIMES A DAY BILATERAL KNEES AND LOWER BACK 06/26/2018 09/23/2018 Inactive Lasix 40 mg tablet RxNorm: 448709 TAKE ONE TABLET BY MOUTH DAILY 06/20/2018 12/16/2018 In active Voltaren 1 % topical gel RxNorm: 222632 2 Gram(s) TOP QID basilia ateral knees and low back 05/29/2018 06/25/2018 Inactive Synthroid 50 mcg tablet RxNorm: 878826 Tablet(s) TAKE ONE TABLET BY MOUTH DAILY 05/17/2018 11/12/2018 In active Synthroid 50 mcg tablet RxNorm: 413221 TAKE ONE TABLET BY MOUTH DAILY 05/16/2018 05/16/2018 In active hydrocodone 5 mg-patrizia taminophen 325 mg tablet RxNorm: 556745 1/2 Tablet(s) PO QID as needed 05/15/2018 06/13/2018 Inactive Keflex 500 mg capsule RxNorm: 344135 1 Capsule(s) PO TID PRN 04/30/2018 05/06/2018 Inactive Silvadene 1 % topica l cream RxNorm: 770882 1 Application TOP BID 04/30/2018 05/09/2018 Inactive Anusol-HC 25 mg rect al suppository RxNorm: 8528380 1 Suppository PRN IN SERT 1 RECTALLY DAILY NEEDED 04/25/2018 No Stop Date Active Colace 100 mg capsule RxNorm: 6758034 1 Capsule(s) PO daily as needed 04/25/2018 No Stop Date Active Silvadene 1 % topica l cream RxNorm: 774137 1 Application TOP BID 04/25/2018 04/29/2018 Inactive meloxicam 15 mg tablet RxNorm: 998001 1 Tablet(s) PO daily TAKE ONE TABLET BY MOUTH ONE TIME A DAY 04/25/2018 10/07/2018 Inactive Benicar 40 mg tablet RxNorm: 702171 TAKE ONE TABLET BY MOUTH DAILY 04/04/2018 11/05/2018 In active Xanax 0.25 mg tablet RxNorm: 884859 1-2 Tablet(s) PO QHS as needed insomnia 03/07/2018 06/04/2018 In active Lasix 40 mg tablet RxNorm: 194402 TAKE ONE TABLET BY MOUTH DAILY 01/07/2018 06/19/2018 In active Crestor 10 mg tablet RxNorm: 331659 TAKE 1 TABLET BY MOUTH ON SUNDAY, , AND Sunday11/20/2017 05/18/2018 Inactive Synthroid 50 mcg tablet RxNorm: 119359 TAKE ONE TABLET BY MOUTH DAILY 11/14/2017 05/12/2018 In active Diflucan 150 mg tablet RxNorm: 675644 1 Tablet(s) PO daily 09/12/2017 09/25/2017 Inactive cefdinir 300 mg capsule RxNorm: 067366 1 Capsule(s) PO BID 09/12/2017 09/25/2017 Inactive Cartia XT 240 mg cap chad,extended release RxNorm: 575633 TAKE ONE CAPSULE BY M OUTH DAILY 09/12/2017 09/06/2018 Inactive prednisone 20 mg tablet RxNorm: 102652 2 Tablet(s) PO daily 08/31/2017 09/04/2017 Inactive Xanax 0.25 mg tablet RxNorm: 761812 1-2 Tablet(s) PO QHS as needed insomnia 08/28/2017 11/24/2017 In active Keflex 500 mg capsule RxNorm: 076072 1 Capsule(s) PO TID 08/28/2017 08/27/2017 Inactive Keflex 500 mg capsule RxNorm: 293019 1 Capsule(s) PO TID 08/28/2017 09/03/2017 Inactive Klor-Con 10 mEq tabl et,extended release RxNorm: 646674 TAKE ONE TABLET BY MO UTH TWICE A DAY 08/23/2017 08/17/2018 Inactive cefdinir 300 mg capsule RxNorm: 106100 1 Capsule(s) PO BID 08/13/2017 08/12/2017 Inactive cefdinir 300 mg capsule RxNorm: 162653 1 Capsule(s) PO BID 08/13/2017 08/19/2017 Inactive Kenalog 40 mg/mL heaven pension for injection RxNorm: 2520701 1 Milliliter(s) Inj 08/09/2017 08/09/2017 In active ceftriaxone 500 mg s olution for injection RxNorm: 2782669 Inj 08/09/2017 08/09/2017 Inactive Zithromax Z-Hebert 250 mg tablet RxNorm: 490586 1 Tablet(s) PO UD 08/09/2017 08/13/2017 Inactive Singulair 10 mg tablet RxNorm: 483851 TAKE ONE TABLET BY MOUTH EVERY DAY 08/03/2017 09/05/2018 In active Xanax 0.25 mg tablet RxNorm: 419717 1-2 Tablet(s) PO QHS as needed insomnia 07/25/2017 05/28/2018 In active Benicar 40 mg tablet RxNorm: 032822 TAKE ONE TABLET BY MOUTH DAILY 07/09/2017 04/03/2018 In active Lasix 40 mg tablet RxNorm: 393575 TAKE ONE TABLET BY MOUTH DAILY 07/09/2017 01/04/2018 In active Synthroid 50 mcg tablet RxNorm: 428058 1 Tablet(s) PO daily TAKE ONE TABLET BY MOUTH DAILY 05/21/2017 11/13/2017 Inactive Must be name brand Lasix 40 mg tablet RxNorm: 268280 TAKE ONE TABLET BY MOUTH DAILY 04/12/2017 07/08/2017 In active Zithromax Z-Hebert 250 mg tablet RxNorm: 591517 1 Tablet(s) PO UD 02/05/2017 02/09/2017 Inactive start with finished with cipro Cipro 500 mg tablet RxNorm: 138905 1 Tablet(s) PO BID 02/01/2017 02/07/2017 Inactive prednisone 20 mg tablet RxNorm: 353315 1 Tablet(s) PO BID 01/15/2017 01/19/2017 Inactive take 1 in the morning and 1 at noon calcium carbonate 60 0 mg calcium (1,500 mg) tablet RxNorm: 337595 1 Tablet(s) PO daily 01/04/2017 No Stop Date Active Kenalog 40 mg/mL heaven pension for injection RxNorm: 1774674 1 Milliliter(s) Inj 01/04/2017 01/04/2017 In active Anusol-HC 25 mg rect al suppository RxNorm: 0626859 1 Suppository PRN IN SERT 1 RECTALLY DAILY NEEDED 01/04/2017 04/03/2017 Inactive Lasix 40 mg tablet RxNorm: 334045 TAKE ONE TABLET BY MOUTH DAILY 12/20/2016 04/11/2017 In active Cartia XT 240 mg cap chad,extended release RxNorm: 592585 TAKE ONE CAPSULE BY M OUTH DAILY 12/20/2016 09/11/2017 Inactive Synthroid 50 mcg tablet RxNorm: 488365 1 Tablet(s) PO daily TAKE ONE TABLET BY MOUTH DAILY 11/27/2016 05/20/2017 Inactive Must be name brand meloxicam 15 mg tablet RxNorm: 520597 Tablet(s) TAKE ONE TABLET BY MOUTH ONE T MARÍA ELENA A DAY 11/27/2016 06/24/2017 Inactive Crestor 10 mg tablet RxNorm: 696720 TAKE 1 TABLET BY MOUTH ON SUNDAY, , AND Sunday11/13/2016 10/14/2017 Inactive Lexapro 10 mg tablet RxNorm: 270748 1 Tablet(s) PO daily 09/07/2016 01/03/2017 Inactive please make sure that her RX for lexapro is a 10mg dose - delete the 5mg lexapro pill - this is FYI Klor-Con 10 mEq tabl et,extended release RxNorm: 129030 TAKE ONE TABLET BY MO UTH TWICE A DAY 08/29/2016 02/24/2017 Inactive Kenalog 40 mg/mL heaven pension for injection RxNorm: 5523362 Milliliter(s) Inj 08/23/2016 08/23/2016 In active cefdinir 300 mg capsule RxNorm: 506353 1 Capsule(s) PO BID 08/22/2016 08/28/2016 Inactive take probiotic while on abx Zithromax Z-Hebert 250 mg tablet RxNorm: 634618 1 Tablet(s) PO UD 08/11/2016 09/06/2016 Inactive Z PACK DIRECTED Lexapro 5 mg tablet RxNorm: 658032 TAKE ONE TABLET BY MOUTH EVERY EVENING 07/18/2016 09/06/2016 In active Singulair 10 mg tablet RxNorm: 315512 TAKE ONE TABLET BY MOUTH EVERY DAY 07/17/2016 08/02/2017 In active Benicar 40 mg tablet RxNorm: 072339 TAKE ONE TABLET BY MOUTH DAILY 07/17/2016 07/08/2017 In active Lexapro 10 mg tablet RxNorm: 474420 1 Tablet(s) PO daily 06/16/2016 09/06/2016 Inactive diltiazem ER 180 mg capsule,extended release RxNorm: 551287 TAKE ONE CAPSULE BY M OUTH DAILY 06/15/2016 07/05/2016 Inactive Lexapro 10 mg tablet RxNorm: 861626 1 Tablet(s) PO daily 06/08/2016 06/15/2016 Inactive gabapentin 600 mg ta blet RxNorm: 907990 TAKE ONE TABLET BY MO UTH EVERY NIGHT AT BEDTIME NEEDED 04/27/2016 04/11/2017 Inactive Cartia XT 240 mg cap chad,extended release RxNorm: 318289 1 Capsule(s) PO daily TAKE ONE CAPSULE BY MOUTH ONCE A DAY 04/17/2016 12/19/2016 Inactive Benicar 40 mg tablet RxNorm: 491376 1 Tablet(s) PO daily 04/17/2016 07/16/2016 Inactive she can do 90 days if she wants to Lexapro 5 mg tablet RxNorm: 370900 1 Tablet(s) PO QPM 03/09/2016 06/07/2016 Inactive Synthroid 50 mcg tablet RxNorm: 309556 1 Tablet(s) PO daily TAKE ONE TABLET BY MOUTH DAILY 01/18/2016 07/15/2016 Inactive Colace 100 mg capsule RxNorm: 8926916 1 Capsule(s) PO daily 01/18/2016 04/24/2018 Inactive hydrocodone 5 mg-patrizia taminophen 325 mg tablet RxNorm: 315937 1/2 Tablet(s) PO QID as needed 01/18/2016 02/16/2016 Inactive Synthroid 50 mcg tablet RxNorm: 596370 Tablet(s) TAKE ONE TABLET BY MOUTH DAILY 12/23/2015 01/17/2016 In active Benicar 40 mg tablet RxNorm: 641363 1 Tablet(s) PO daily 12/13/2015 12/12/2015 Inactive Benicar 40 mg tablet RxNorm: 221158 1 Tablet(s) PO daily 12/13/2015 04/10/2016 Inactive meloxicam 15 mg tablet RxNorm: 293771 TAKE ONE TABLET BY MOUTH ONE TIME A DAY 11/12/2015 06/08/2016 In active meloxicam 15 mg tablet RxNorm: 470633 Tablet(s) TAKE ONE TABLET BY MOUTH ONE T MARÍA ELENA A DAY 11/11/2015 11/11/2015 Inactive Lasix 40 mg tablet RxNorm: 373495 Tablet(s) TAKE ONE TABLET BY MOUTH EVERY DAY 10/19/2015 12/19/2016 Inactive diltiazem ER 180 mg capsule,extended release RxNorm: 687306 1 Capsule(s) daily TA KE ONE CAPSULE BY MOUTH ONCE A DAY 09/27/2015 04/16/2016 Inactive Crestor 10 mg tablet RxNorm: 816871 1 Tablet(s) PO Sun09/17/2015 07/12/2016 Inactive [SAVINGS FOR UNINSURED PATIENTS -- BIN:0 65061, PCN: ASPROD1, Group: [facility], ID# [id number], Process claim through Fingerprint, for questions: . THIS IS NOT INSURANCE.] hydrocodone 5 mg-patrizia taminophen 325 mg tablet RxNorm: 824331 1-2 Tablet(s) PO Q6 P RN 09/09/2015 10/08/2015 In active Micardis 80 mg tablet RxNorm: 717583 1 Tablet(s) PO daily TAKE ONE TABLET BY MOUTH DAILY 08/23/2015 12/12/2015 Inactive Klor-Con 10 mEq tabl et,extended release RxNorm: 212080 Tablet(s) TAKE ONE TA BLET BY MOUTH TWICE A DAY 08/23/2015 02/18/2016 Inactive Synthroid 50 mcg tablet RxNorm: 812934 TAKE ONE TABLET BY MOUTH DAILY 07/06/2015 12/22/2015 In active meloxicam 15 mg tablet RxNorm: 910166 TAKE ONE TABLET BY MOUTH ONE TIME A DAY 06/22/2015 11/10/2015 In active Singulair 10 mg tablet RxNorm: 242837 TAKE ONE TABLET BY MOUTH EVERY DAY 05/18/2015 07/16/2016 In active Micardis 80 mg tablet RxNorm: 138252 TAKE ONE TABLET BY MOUTH DAILY 02/22/2015 05/04/2015 In active gabapentin 600 mg ta blet RxNorm: 253952 1 Tablet(s) PO HS as needed 01/15/2015 01/09/2016 Inactive [SAVINGS FOR NON-COVERED DRUGS -- BIN:00 3585, PCN: ASPROD1, Group: XXXXX, ID# [id number], Questions: . THIS IS NOT INSURANCE.] diltiazem ER 180 mg capsule,extended release RxNorm: 688104 TAKE ONE CAPSULE BY M OUTH ONCE A DAY 01/07/2015 09/26/2015 Inactive meloxicam 15 mg tablet RxNorm: 779028 TAKE ONE TABLET BY MOUTH ONE TIME A DAY 11/09/2014 05/07/2015 In active gabapentin 600 mg ta blet RxNorm: 690972 1 Tablet(s) PO HS as needed 10/13/2014 01/14/2015 Inactive [SAVINGS FOR UNINSURED PATIENTS -- BIN:0 17164, PCN: ASPROD1, Group: [id number], ID# [id number], Process claim through MedImpact, for questions: . THIS IS NOT INSURANCE.] omeprazole 20 mg tab let,delayed release RxNorm: 558553 1 Tablet(s) PO daily 10/13/2014 11/11/2014 In active Synthroid 50 mcg tablet RxNorm: 159939 TAKE ONE TABLET BY MOUTH EVERY DAY 10/12/2014 01/09/2015 In active Synthroid 50 mcg tablet RxNorm: 182990 Tablet(s) TAKE ONE TABLET BY MOUTH EVERY DAY 10/12/2014 10/11/2014 Inactive [SAVINGS FOR UNINSURED PATIENTS -- BIN:0 65112, PCN: ASPROD1, Group: [id number], ID# [id number], Process claim through MedImpact, for questions: . THIS IS NOT INSURANCE.] Lasix 40 mg tablet RxNorm: 746084 Tablet(s) PO TAKE ONE TABLET BY MOUTH TW ICE A DAY FOR 3 DAYS, THEN RESUME ONE DAILY EXCEPT ON WEDNESDAYS AND FRIDAYS TAKE ONE TWICE DAILY 09/22/2014 05/28/2018 Inactive [SAVINGS FOR UNINSURED ARTURO ENTS -- BIN:[id number], PCN: ASPROD1, Group: [id number], ID# [id number], Process claim through MedImpact, for questions: . THIS IS NOT INSURANCE.] Lasix 40 mg tablet RxNorm: 094130 TAKE ONE TABLET BY MOUTH EVERY DAY 09/22/2014 10/18/2015 In active Crestor 10 mg tablet RxNorm: 377816 1 Tablet(s) PO Sun08/28/2014 04/24/2015 Inactive [SAVINGS FOR UNINSURED PATIENTS -- BIN:0 63258, PCN: ASPROD1, Group: [id number], ID# [id number], Process claim through MedImpact, for questions: . THIS IS NOT INSURANCE.] Crestor 10 mg tablet RxNorm: 961279 1 Tablet(s) PO Sun08/28/2014 08/27/2014 Inactive [SAVINGS FOR UNINSURED PATIENTS -- BIN:0 56338, PCN: ASPROD1, Group: [id number], ID# [id number], Process claim through MedImpact, for questions: . THIS IS NOT INSURANCE.] Micardis 80 mg tablet RxNorm: 945328 TAKE ONE TABLET BY MOUTH EVERY DAY 08/24/2014 12/21/2014 In active Zithromax Z-Hebert 250 mg tablet RxNorm: 494011 Tablet(s) PO UD 08/14/2014 08/18/2014 Inactive 2 tabs day 1, 1 tabs days 2-5 Anusol-HC 25 mg supp ository RxNorm: 5359484 INSERT 1 RECTALLY DA GUSTAVO NEEDED 07/13/2014 10/10/2014 In active Klor-Con 10 mEq tabl et,extended release RxNorm: 007796 TAKE ONE TABLET BY [facility] TWICE A DAY 06/18/2014 12/14/2014 Inactive Lomotil 2.5 mg-0.025 mg tablet RxNorm: 5609150 1 Tablet(s) PO PRN a fter each loose stool max 8 per day 06/15/2014 10/12/2014 Inactive one after each loose bm juarez it 8 per day albuterol sulfate HF A 90 mcg/actuation aerosol inhaler RxNorm: 8807118 1 or2 Puff(s) INH Q4 PRN as needed 05/11/2014 05/10/2014 Inactive albuterol sulfate HF A 90 mcg/actuation aerosol inhaler RxNorm: 3736884 1 or2 Puff(s) INH Q4 PRN as needed 05/11/2014 01/03/2017 Inactive Premarin 0.625 mg/gr am vaginal cream RxNorm: 861472 1/2 Gram(s) VAG every other day 05/11/2014 12/06/2014 In active Premarin 0.625 mg/gr am vaginal cream RxNorm: 678885 1/2 Gram(s) VAG every other day 05/11/2014 05/10/2014 In active cefdinir 300 mg capsule RxNorm: 955011 1 Capsule(s) PO BID 05/07/2014 05/16/2014 Inactive Rocephin 500 mg solu tion for injection RxNorm: 449467 1 Milliliter(s) Inj 05/07/2014 05/07/2014 In active Singulair 10 mg tablet RxNorm: 538117 TAKE ONE TABLET BY MOUTH EVERY DAY 04/30/2014 10/12/2014 In active meloxicam 15 mg tablet RxNorm: 675136 1 Tablet(s) PO daily 04/16/2014 11/08/2014 Inactive Crestor 10 mg tablet RxNorm: 643125 1 Tablet(s) PO Sun TAKE ONE TAB LET BY MOUTH EVERY DAY 04/16/2014 08/27/2014 Inactive Synthroid 50 mcg tablet RxNorm: 990546 TAKE ONE TABLET BY MOUTH EVERY DAY 04/02/2014 09/28/2014 In active diltiazem ER 180 mg capsule,extended release RxNorm: 133217 1 Capsule(s) PO daily 01/05/2014 12/30/2014 In active Pennsaid 1.5 % topic al drops RxNorm: 291023 Drop(s) TOP APPLY 15 - 20 DROPS TOPICALLY FOUR TIMES A DAY 12/29/2013 01/17/2016 Inactive Rocephin 500 mg solu tion for injection RxNorm: 165499 Inj 12/2612/26/2013 Inactive Kenalog 40 mg/mL heaven pension for injection RxNorm: 8186371 Milliliter(s) Inj 12/26/2013 12/26/2013 In active Micardis 80 mg tablet RxNorm: 078455 Tablet(s) PO TAKE ONE TABLET BY MOUTH EV DEANNA DAY 12/15/2013 08/23/2014 Inactive nystatin 100,000 uni t/mL oral suspension RxNorm: 252248 4 Unit(s) PO QID swis h and swallow 11/12/2013 12/09/2013 Inactive Kenalog 40 mg/mL heaven pension for injection RxNorm: 0769203 Milliliter(s) Inj 11/12/2013 11/12/2013 In active Lasix 40 mg tablet RxNorm: 555599 Tablet(s) PO TAKE ONE TABLET BY MOUTH TW ICE A DAY FOR 3 DAYS, THEN RESUME ONE DAILY EXCEPT ON WEDNESDAYS AND FRIDAYS TAKE ONE TWICE DAILY 10/30/2013 09/21/2014 Inactive Lasix 40 mg tablet RxNorm: 364048 1 Tablet(s) PO daily 10/30/2013 10/29/2013 Inactive Rocephin 500 mg solu tion for injection RxNorm: 854521 1 Milliliter(s) Inj 10/09/2013 10/09/2013 In active metoprolol succinate ER 25 mg tablet,extended release 24 hr RxNorm: 077125 Tablet(s) PO TAKE ONE TABLET BY MOUTH EVERY DAY 10/02/2013 01/06/2014 Inactive metoprolol succinate ER 25 mg tablet,extended release 24 hr RxNorm: 225200 Tablet(s) PO TAKE ONE TABLET BY MOUTH EVERY DAY 08/04/2013 10/01/2013 Inactive Synthroid 50 mcg tablet RxNorm: 986738 Tablet(s) PO TAKE ONE TABLET BY MOUTH EV DEANNA 07/14/2013 04/01/2014 Inactive gabapentin 600 mg ta blet RxNorm: 883547 1 Tablet(s) PO Q8 PRN 06/11/2013 06/11/2013 Inactive gabapentin 600 mg ta blet RxNorm: 880066 1 Tablet(s) PO Q8 PRN 06/11/2013 03/07/2014 Inactive Neurontin 600 mg tablet RxNorm: 917780 1 Tablet(s) PO Q8 PRN 06/10/2013 06/11/2013 Inactive Anusol-HC 25 mg supp ository RxNorm: 2261780 Suppository RTL INSE RT 1 RECTALLY DAILY NEEDED 04/24/2013 07/12/2014 Inactive metoprolol succinate ER 25 mg tablet,extended release 24 hr RxNorm: 040757 1 Tablet(s) PO daily 04/21/2013 08/03/2013 Inactive Premarin 0.625 mg/gr am Vaginal Cream RxNorm: 560491 1/2 Gram(s) VAG every other day 04/03/2013 10/29/2013 In active Klor-Con 10 mEq tabl et,extended release RxNorm: 701916 1 Tablet(s) PO daily 03/26/2013 03/20/2014 In active Klor-Con 10 mEq tabl et,extended release RxNorm: 696293 1 Tablet(s) PO BID 03/24/2013 03/23/2013 In active Klor-Con 10 mEq tabl et,extended release RxNorm: 327973 1 Tablet(s) PO BID 03/24/2013 03/25/2013 In active Klor-Con 10 mEq tabl et,extended release RxNorm: 084159 1 Tablet(s) PO BID 03/24/2013 03/23/2013 In active Augmentin 875 mg-125 mg tablet RxNorm: 503617 1 Tablet(s) PO BID 03/12/2013 03/18/2013 Inactive Augmentin 875 mg-125 mg tablet RxNorm: 933490 1 Tablet(s) PO BID 03/12/2013 03/11/2013 Inactive ciprofloxacin 500 mg tablet RxNorm: 656621 1 Tablet(s) PO BID 03/11/2013 03/17/2013 Inactive ciprofloxacin 500 mg tablet RxNorm: 318555 1 Tablet(s) PO BID 03/11/2013 03/10/2013 Inactive Crestor 10 mg tablet RxNorm: 135438 1 Tablet(s) PO daily 02/10/2013 02/09/2013 Inactive Crestor 10 mg tablet RxNorm: 088526 Tablet(s) PO TAKE ONE TABLET BY MOUTH EV DEANNA DAY 02/10/2013 04/15/2014 Inactive Singulair 10 mg tablet RxNorm: 584243 Tablet(s) PO TAKE ONE TABLET BY MOUTH EV DEANNA DAY 02/04/2013 04/29/2014 Inactive Kenalog 40 mg/mL Heaven p for Injection RxNorm: 7728956 1 Milliliter(s) Inj 11/21/2012 11/21/2012 In active Pennsaid 1.5 % topic al drops RxNorm: 269877 15-20 Drop(s) TOP QID 10/28/2012 11/21/2013 Inactive Micardis 80 mg tablet RxNorm: 590141 1 Tablet(s) PO daily 10/28/2012 10/22/2013 Inactive put this on file please, quantitiy incre ase Pennsaid 1.5 % Topic al Drops RxNorm: 426092 15-20 Drop(s) TOP QID 10/28/2012 10/27/2012 Inactive diltiazem ER 180 mg capsule,extended release RxNorm: 296612 1 Capsule(s) PO daily 10/14/2012 10/08/2013 In active Pyridium 200 mg tablet RxNorm: 2669767 1 Tablet(s) PO Q8 PRN 09/11/2012 10/12/2014 Inactive Flagyl 500 mg tablet RxNorm: 612168 1 Tablet(s) PO TID 09/04/2012 09/10/2012 Inactive Macrobid 100 mg capsule RxNorm: 7460684 1 Capsule(s) PO BID 09/03/2012 09/02/2012 Inactive Macrobid 100 mg capsule RxNorm: 1995758 1 Capsule(s) PO BID 09/03/2012 09/09/2012 Inactive sulfamethoxazole-tri methoprim 800 mg-160 mg tablet RxNorm: 111578 1 Tablet(s) PO BID 08/05/2012 08/14/2012 Inactive Lasix 40 mg tablet RxNorm: 714263 1 Tablet(s) PO BID pt is taking extra la six x 3 days, then every sunday and sunday take two lasix pills. 07/15/2012 07/09/2013 Inactive Synthroid 50 mcg tablet RxNorm: 321743 1 Tablet(s) PO daily 07/15/2012 07/09/2013 Inactive do not substitute the generic levothyrox ine for the synthroid brand name.....she needs brand name synthroid. Klor-Con 10 mEq tabl et,extended release RxNorm: 722430 1 Tablet(s) PO BID 07/15/2012 03/23/2013 In active Singulair 10 mg tablet RxNorm: 154295 1 Tablet(s) PO daily 06/12/2012 02/03/2013 Inactive Lexapro 10 mg tablet RxNorm: 884179 1/2 Tablet(s) PO daily 05/10/2012 06/03/2013 Inactive ProAir HFA 90 mcg/ac tuation Aerosol Inhaler RxNorm: 222368 2 INH Q6 PRN 04/23/2012 01/17/2016 In active Lexapro 10 mg tablet RxNorm: 852831 1/2 Tablet(s) PO daily 04/19/2012 05/09/2012 Inactive metoprolol succinate ER 50 mg tablet,extended release 24 hr RxNorm: 562581 1 Tablet(s) PO daily 04/09/2012 04/09/2012 Inactive Klor-Con 10 10 mEq t ablet,extended release RxNorm: 407963 1 Tablet(s) PO daily 04/01/2012 07/14/2012 In active metoprolol succinate ER 50 mg tablet,extended release 24 hr RxNorm: 159468 1/2 Tablet(s) PO BID 03/11/2012 04/08/2012 Inactive clonidine 0.1 mg Tab RxNorm: 716938 1 Tablet(s) PO BID 02/19/2012 03/12/2012 Inactive clonidine 0.1 mg Tab RxNorm: 141530 1 Tablet(s) PO BID 02/19/2012 02/18/2012 Inactive Micardis 80 mg Tab RxNorm: 649976 1 Tablet(s) PO daily 02/14/2012 02/13/2012 Inactive Micardis 80 mg tablet RxNorm: 452939 1 Tablet(s) PO daily 02/14/2012 10/27/2012 Inactive Synthroid 50 mcg tablet RxNorm: 240845 1 Tablet(s) PO daily 02/12/2012 07/14/2012 Inactive Tekturna 300 mg Tab RxNorm: 0471426 1 Tablet(s) PO daily 02/12/2012 03/12/2012 Inactive Lasix 40 mg Tab RxNorm: 569413 1 Tablet(s) PO daily 12/18/2011 12/17/2011 Inactive Lasix 40 mg tablet RxNorm: 873264 1 Tablet(s) PO daily 12/18/2011 07/14/2012 Inactive Anusol-HC 25 mg Supp ository RxNorm: 3677738 1 Suppository RTL QD AY PRN 12/04/2011 04/19/2012 In active lactobacillus acidop hilus Cap RxNorm: 1 Capsule(s) PO BID 11/21/2011 11/20/2011 Inactive lactobacillus acidop hilus Cap RxNorm: 1 Capsule(s) PO BID 11/21/2011 11/20/2011 Inactive Cipro 500 mg Tab RxNorm: 377093 1 Tablet(s) PO BID 11/21/2011 03/12/2012 Inactive lactobacillus acidop hilus Cap RxNorm: 1 Capsule(s) PO BID 11/21/2011 11/27/2011 Inactive lactobacillus acidop hilus Cap RxNorm: 1 Capsule(s) PO BID 11/21/2011 11/20/2011 Inactive Cipro 500 mg Tab RxNorm: 615688 1 Tablet(s) PO BID 11/21/2011 11/20/2011 Inactive Lexapro 10 mg Tab RxNorm: 932058 1 Tablet(s) PO daily 11/13/2011 11/12/2011 Inactive Lexapro 10 mg tablet RxNorm: 665761 1 Tablet(s) PO daily 11/13/2011 04/18/2012 Inactive amlodipine 10 mg Tab RxNorm: 221356 1 Tablet(s) PO daily 10/09/2011 12/03/2011 Inactive amlodipine 5 mg Tab RxNorm: 877627 1 Tablet(s) PO daily 09/20/2011 12/04/2011 Inactive Rocephin 500 mg Solu tion for Injection RxNorm: 7724992 Inj 11/201109/20/2011 Inactive metoprolol succinate ER 25 mg 24 hr Tab RxNorm: 828637 1 Tablet(s) PO QHS 08/30/2011 09/20/2011 In active Ambien 10 mg Tab RxNorm: 544118 1 Tablet(s) PO HS PRN 08/30/2011 04/19/2012 Inactive Augmentin 875 mg-125 mg Tab RxNorm: 084626 1 Tablet(s) PO BID 08/25/2011 09/20/2011 Inactive Augmentin 875 mg-125 mg Tab RxNorm: 785142 1 Tablet(s) PO BID 08/25/2011 08/24/2011 Inactive Rocephin 500 mg Solu tion for Injection RxNorm: 8983816 Inj 07/2808/23/2011 Inactive Levaquin 500 mg Tab RxNorm: 140114 1 Tablet(s) PO daily 08/23/2011 08/30/2011 Inactive chlordiazepoxide-cli dinium 5 mg-2.5 mg Cap RxNorm: 190953 1 Capsule(s) PO BID 07/10/2011 04/19/2012 In active q 12 hours prn metoprolol succinate ER 100 mg 24 hr Tab RxNorm: 759451 1 Tablet(s) PO daily 05/29/2011 03/12/2012 In active Synthroid 50 mcg Tab RxNorm: 650100 1 Tablet(s) PO daily 05/15/2011 08/12/2011 Inactive Ambien CR 12.5 mg Tab RxNorm: 083939 1 Tablet(s) PO HS PRN 05/09/2011 08/30/2011 Inactive Ambien 10 mg Tab RxNorm: 503572 1 Tablet(s) PO QHS 05/09/2011 06/07/2011 Inactive Nexium 40 mg Cap RxNorm: 224901 1 Capsule(s) PO daily 05/04/2011 03/12/2012 Inactive the patient had tried pepcid, otc priolosec, RX omperazole, failed them all Bactrim DS 800 mg-16 0 mg Tab RxNorm: 800824 1 Tablet(s) PO BID 04/19/2011 08/30/2011 Inactive triamcinolone aceton margie 40 mg/mL Susp for Injection RxNorm: 9855726 1 Milliliter(s) Inj UD 04/19/2011 04/19/2011 Inactive aspirin 81 mg Tab, D elayed Release RxNorm: 029972 1 Tablet(s) PO daily No Start Date Active 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, 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 No Start Date Active Cymbalta 30 mg Cap RxNorm: 949064 1 Capsule(s) PO daily No Start Date 03/12/2012 Inactive Nexium 40 mg Cap RxNorm: 382751 Capsule(s) PO No Start Date 05/03/2011 Inactive Benadryl 25 mg capsule RxNorm: 1074099 1 Capsule(s) PO QHS No Start Date 01/03/2017 Inactive Klor-Con 10 10 mEq t ablet,extended release RxNorm: 632573 1 Tablet(s) PO daily No Start Date 03/31/2012 Inactive Metamucil Oral RxNorm: Oral No Start Date 10/12/2014 Inactive amlodipine 10 mg Tab RxNorm: 250155 1 Tablet(s) PO daily No Start Date 10/08/2011 Inactive Norvasc 5 mg tablet RxNorm: 865845 1 Tablet(s) PO daily No Start Date 10/12/2014 Inactive Lasix 40 mg Tab RxNorm: 185575 1 Tablet(s) PO daily No Start Date 12/17/2011 Inactive diltiazem ER (XR/XT) 240 mg capsule,extended release,controlled RxNorm: 667840 1 Capsule(s) PO daily No Start Date 04/22/2012 Inactive Centrum Silver Ultra Women's oral RxNorm: oral No Start D ate 04/24/2018 Inactive Synthroid 50 mcg Tab RxNorm: 288215 1 Tablet(s) PO daily No Start Date 05/14/2011 Inactive Flagyl 500 mg tablet RxNorm: 469433 1 Tablet(s) PO No Start Date 09/03/2012 Inactive one after each loose bm limit 8 per day Boniva 150 mg Tab RxNorm: 905464 1 Tablet(s) PO UD No Start Date 08/30/2011 Inactive monthly Singulair 10 mg tablet RxNorm: 205525 1 Tablet(s) PO daily No Start Date 06/11/2012 Inactive folic acid Oral RxNorm: Oral No Start Date 03/12/2012 Inactive potassium chloride E R 10 mEq tablet,extended release RxNorm: 705841 1 Tablet(s) PO daily No Start Date 01/03/2017 Inactive Probiotic & Acidophi jerilyn oral RxNorm: oral No Start D ate 04/24/2018 Inactive Librium 10 mg Cap RxNorm: 512938 Capsule(s) PO UD No Start Date 03/12/2012 Inactive q 12 hours prn Crestor 10 mg tablet RxNorm: 868827 1 Tablet(s) PO daily No Start Date 02/09/2013 Inactive multivitamin Cap RxNorm: 1 Capsule(s) PO daily No Start Date 01/17/2016 Inactive metoprolol succinate ER 100 mg 24 hr Tab RxNorm: 776538 1 Tablet(s) PO daily No Start Date 05/28/2011 Inactive Zithromax Z-Hebert 250 mg tablet RxNorm: 948277 Tablet(s) PO UD No Start Date 12/22/2015 Inactive diltiazem ER 180 mg capsule,extended release RxNorm: 084115 1 Capsule(s) PO daily No Start Date 10/13/2012 Inactive ProctoCream-HC 2.5 % rectal cream with applicator RxNorm: 125833 APPLY TO AFFECTED AREAS DIRECTED RTL No Start Date 09/30/2018 Inactive Tekturna 300 mg Tab RxNorm: 5486605 1 Tablet(s) PO daily samples No Start Date 02/11/2012 Inactive Xanax 0.25 mg tablet RxNorm: 091082 1-2 Tablet(s) PO QHS as needed insomnia No Start Date 07/24/2017 Inactive Fish Oil 1,000 mg Cap RxNorm: 1 Capsule(s) PO daily No Start Date 04/24/2018 Inactive ProAir HFA 90 mcg/ac tuation Aerosol Inhaler RxNorm: 1115281 2 INH Q6 PRN No Start Date 04/22/2012 Inactive chlordiazepoxide-cli dinium 5 mg-2.5 mg Cap RxNorm: 970491 1 Capsule(s) PO PRN No Start Date 07/09/2011 Inactive q 12 hours prn Butrans 5 mcg/hour T ransderm Patch RxNorm: 677104 1 Patch TD weekly No Start Date 05/26/2012 Inactive Lactobacillus acidop hilus tablet RxNorm: 4 Tablet(s) PO daily No Start Date 01/03/2017 Inactive Librax (with clidini um) 5 mg-2.5 mg capsule RxNorm: 700883 1 Capsule(s) PO BID No Start Date 04/18/2012 Inactive Nexium 40 mg capsule ,delayed release RxNorm: 708002 Capsule(s) PO PRN No Start Date 10/12/2014 Inactive Tylenol Extra Streng th 500 mg tablet RxNorm: 456963 1 Tablet(s) PO BID as needed for pain No Start Date 04/24/2018 Inactive Premarin 0.625 mg/gr am Vaginal Cream RxNorm: 326374 Gram(s) VAG No Start Date 03/12/2012 Inactive three times a week, small amt to vaginal tissuesample given metoprolol succinate ER 50 mg tablet,extended release 24 hr RxNorm: 260178 1 Tablet(s) PO daily No Start Date 03/10/2012 Inactive Zithromax Z-Hebert 250 mg tablet RxNorm: 111877 Tablet(s) PO UD No Start Date 08/13/2014 Inactive albuterol sulfate HF A 90 mcg/actuation aerosol inhaler RxNorm: 5654938 1 or2 Puff(s) INH Q4 PRN No Start Date 05/10/2014 Inactive Xanax 0.25 mg Tab RxNorm: 850639 1/2-1 Tablet(s) PO Q8 PRN No Start Date 03/12/2012 Inactive metoprolol succinate ER 25 mg tablet,extended release 24 hr RxNorm: 589287 1 Tablet(s) PO daily No Start Date 04/20/2013 Inactive Zithromax Z-Hebert 250 mg tablet RxNorm: 576116 1 Tablet(s) PO UD No Start Date 08/10/2016 Inactive Z PACK DIRECTED calcium carbonate 60 0 mg (1,500 mg) Tab RxNorm: 594498 1 Tablet(s) PO BID No Start Date 01/03/2017 Inactive albuterol sulfate HF A 90 mcg/Actuation Aerosol Inhaler RxNorm: 0619150 1-2 Puff(s) INH Q4 PRN No Start Date 03/11/2012 Inactive Vitamin D3 2,000 uni t capsule RxNorm: 364527 1 Capsule(s) PO daily No Start Date 10/12/2014 Inactive Colace 100 mg Cap RxNorm: 7120736 1 Capsule(s) PO BID No Start Date 01/17/2016 Inactive Neurontin 600 mg tablet RxNorm: 719470 1 Tablet(s) PO Q8 PRN No Start Date 06/09/2013 Inactive Lomotil 2.5 mg-0.025 mg tablet RxNorm: 9989294 1 Tablet(s) PO No Start Date 06/14/2014 Inactive one after each loose bm limit 8 per day Micardis 80 mg Tab RxNorm: 922100 1 Tablet(s) PO daily No Start Date 12/03/2011 Inactive Pyridium 200 mg tablet RxNorm: 5477025 1 Tablet(s) PO Q8 PRN No Start Date 09/10/2012 Inactive Medication Administered Medication Codes Instruc tions Start Date Status Kenalog 40 mg/mL suspension for injection RxNorm: 1142430 1Milliliter 08/09/2017 N o longer Active ceftriaxone 500 mg solution for injection RxNorm: 9662700 08/09/2017 No longer A ctive Kenalog 40 mg/mL suspension for injection RxNorm: 3426909 1Milliliter 01/04/2017 N o longer Active Kenalog 40 mg/mL suspension for injection RxNorm: 7007872 Milliliter 08/23/2016 No longer Active Rocephin 500 mg solution for injection RxNorm: 051798 1Milliliter 05/07/2014 N o longer Active Kenalog 40 mg/mL suspension for injection RxNorm: 2853223 Milliliter 12/26/2013 No longer Active Rocephin 500 mg solution for injection RxNorm: 583417 12/26/2013 No longer A ctive Kenalog 40 mg/mL suspension for injection RxNorm: 0441332 Milliliter 11/12/2013 No longer Active Rocephin 500 mg solution for injection RxNorm: 580181 1Milliliter 10/09/2013 N o longer Active Kenalog 40 mg/mL Susp for Injection RxNorm: 7466781 1Milliliter 11/21/2012 N o longer Active Rocephin 500 mg Solution for Injection RxNorm: 7407311 08/23/2011 No longer A ctive triamcinolone acetonide 40 mg/mL Susp for Injection RxNorm: 5001583 1MilliliterUD 04/19/2011 No longer Active Immunizations Vaccine Codes Date Status SHINGARIX CVX: 121 07/02 completed Influenza CVX: 141 05/22 completed Influenza CVX: 141 06/16 completed Pneumococcal CVX: 133 completed PPD Unknown 08/07/2014 completed Influenza CVX: 141 05/20 completed Influenza CVX: 141 06/11 completed zostavax CVX: 121 2012 completed Influenza CVX: 141 05/03 completed Influenza Unknown 2009 completed Assessments Condition Codes Effectiv e Dates Essential [...] 11/12/2013 Laboratory exam ordered as part of [facility] anjelica general medical examination ICD-9: V72.62 11/12/2013 Acute [...] Item Item Code Result Date Comp Metabolic Qth246 NA 139 mEq/L 05/29/2018 Comp Metabolic Rfk516 K 4.1 mEq/L 05/29/2018 Comp Metabolic Ahg640 CL 99 mEq/L 05/29/2018 Comp Metabolic Kfm359 CO2 30.0 mEq/L 05/29/2018 Comp Metabolic Yxw872 AN ION GAP 14 05/29/2018 Comp Metabolic Eec024 GL UCOSE 107 mg/dL 05/29/2018 Comp Metabolic Xfr003 Cr eat 0.6 mg/dL 05/29/2018 Comp Metabolic Qux570 eG FR 95 ml/min/1.73m2 05/29 Comp Metabolic Wqt578 BUN 15 mg/dL 05/29/2018 Comp Metabolic Bas665 B/ C Ratio 23.4 Ratio 05/29/2018 Comp Metabolic Ahv767 CA LCIUM 9.4 mg/dL 05/29/2018 Comp Metabolic Ipl427 AL K PHOS 52 U/L 05/29/2018 Comp Metabolic Tpu346 T(SGOT) 16 U/L 05/29/2018 Comp Metabolic Esy119 AL T(SGPT) 12 U/L 05/29/2018 Comp Metabolic Ztq006 BI LI T 1.1 mg/dL 05/29/2018 Comp Metabolic Hrd933 AL BUMIN 4.0 g/dL 05/29/2018 Comp Metabolic Xlh580 TP RO 6.5 g/dL 05/29/2018 Comp Metabolic Xds486 GL OB 2.5 g/dL 05/29/2018 Comp Metabolic Mam611 A/ G Ratio 1.6 Ratio 05/29/2018 Comp Metabolic Tdd413 Os mo 279 mOsmo 05/29/2018 Cbc With [...] 28.9 pg 05/29/2018 Cbc With Differential Ord2 Jenkins% 9.0 % 05/29/2018 Cbc With Differential Ord2 [...] 2.05 K/ul 05/29/2018 Cbc With Differential Ord2 Jenkins ABS# 0.7 K/ul 05/29/2018 Cbc With Differential Ord2 Eos ABS# 0.2 K/ul 05/29/2018 Cbc With Differential Ord2 Baso ABS# 0.0 K/ul 05/29/2018 Tsh Ord6 TSH (3rd IS) 2.05 uIU/mL 05/29/2018 Lipid Ord30 CHOL 191 mg/dL 05/29/2018 Lipid Ord30 HDL 68.0 mg/dl 05/29/2018 Lipid Ord30 TRIG 138 mg/dL 05/29/2018 Lipid Ord30 LDL 95 mg/dL 05/29/2018 Lipid Ord30 C/HDL 2.8 Ratio 05/29/2018 Free T4 Ymi005 FREE T4 0.93 ng/dL 05/29/2018 Free T4 Nak488 FREE T4 0.90 ng/dL 09/12/2017 Cbc With [...] 29.3 pg 09/12/2017 Cbc With Differential Ord2 Jenkins% 8.7 % 09/12/2017 Cbc With Differential Ord2 [...] 2.72 K/ul 09/12/2017 Cbc With Differential Ord2 Jenkins ABS# 1.2 K/ul 09/12/2017 Cbc With Differential Ord2 Eos ABS# 0.3 K/ul 09/12/2017 Cbc With Differential Ord2 Baso ABS# 0.1 K/ul 09/12/2017 Comp Metabolic Opv227 NA 140 mEq/L 09/12/2017 Comp Metabolic Hdp874 K 4.3 mEq/L 09/12/2017 Comp Metabolic Wvg915 CL 99 mEq/L 09/12/2017 Comp Metabolic Qtg609 CO2 33.0 mEq/L 09/12/2017 Comp Metabolic Roh504 AN ION GAP 12 09/12/2017 Comp Metabolic Tdc089 GL UCOSE 92 mg/dL 09/12/2017 Comp Metabolic Svl718 Cr eat 0.7 mg/dL 09/12/2017 Comp Metabolic Hqk153 eG FR 84 ml/min/1.73m2 09/12 Comp Metabolic Byo047 BUN 18 mg/dL 09/12/2017 Comp Metabolic Sqe876 B/ C Ratio 25.4 Ratio 09/12/2017 Comp Metabolic Pys285 CA LCIUM 9.3 mg/dL 09/12/2017 Comp Metabolic Jcl869 AL K PHOS 64 U/L 09/12/2017 Comp Metabolic Lls251 T(SGOT) 13 U/L 09/12/2017 Comp Metabolic Zhl678 AL T(SGPT) 12 U/L 09/12/2017 Comp Metabolic Efz921 BI LI T 0.7 mg/dL 09/12/2017 Comp Metabolic Olp195 AL BUMIN 4.0 g/dL 09/12/2017 Comp Metabolic Omf736 TP RO 6.3 g/dL 09/12/2017 Comp Metabolic Vpn690 GL OB 2.3 g/dL 09/12/2017 Comp Metabolic Gab571 A/ G Ratio 1.8 Ratio 09/12/2017 Comp Metabolic Tbt121 Os mo 281 mOsmo 09/12/2017 Lipid Ord30 [...] 28.8 pg 03/09/2016 Cbc With Differential Ord2 Jenkins% 8.5 % 03/09/2016 Cbc With Differential Ord2 [...] 2.38 K/ul 03/09/2016 Cbc With Differential Ord2 Jenkins ABS# 0.8 K/ul 03/09/2016 Cbc With Differential Ord2 Eos ABS# 0.2 K/ul 03/09/2016 Cbc With Differential Ord2 Baso ABS# 0.1 K/ul 03/09/2016 Comp Metabolic Ixn514 NA 138 mEq/L 03/09/2016 Comp Metabolic Lgv545 K 4.5 mEq/L 03/09/2016 Comp Metabolic Qhg188 CL 100 mEq/L 03/09/2016 Comp Metabolic Wxx007 CO2 33.0 mEq/L 03/09/2016 Comp Metabolic Xdh164 AN ION GAP 10 03/09/2016 Comp Metabolic Vqd568 GL UCOSE 94 mg/dL 03/09/2016 Comp Metabolic Bpf552 Cr eat 0.6 mg/dL 03/09/2016 Comp Metabolic Voo408 eG FR 106 ml/min/1.73m2 02/24 Comp Metabolic Jak992 BUN 10 mg/dL 03/09/2016 Comp Metabolic Mjb290 B/ C Ratio 17.2 Ratio 03/09/2016 Comp Metabolic Nnj135 CA LCIUM 9.2 mg/dL 03/09/2016 Comp Metabolic Dxr023 AL K PHOS 64 U/L 03/09/2016 Comp Metabolic Etp766 T(SGOT) 20 U/L 03/09/2016 Comp Metabolic Kwa959 AL T(SGPT) 11 U/L 03/09/2016 Comp Metabolic Fjc785 BI LI T 0.9 mg/dL 03/09/2016 Comp Metabolic Okd383 AL BUMIN 4.0 g/dL 03/09/2016 Comp Metabolic Vfn304 TP RO 6.1 g/dL 03/09/2016 Comp Metabolic Ncs674 GL OB 2.1 g/dL 03/09/2016 Comp Metabolic Wof168 A/ G Ratio 1.9 Ratio 03/09/2016 Comp Metabolic Xyd251 Os mo 274 mOsmo 03/09/2016 Free T4 Xno094 FREE T4 0.90 ng/dL 03/09/2016 Lipid Ord30 [...] hTSH II 3.25 uIU/mL 09/07/2015 Free T4 Ufh585 FREE T4 0.79 ng/dL 09/07/2015 Comp Metabolic Xuv134 NA 137 mEq/L 09/07/2015 Comp Metabolic Yxi504 K 4.0 mEq/L 09/07/2015 Comp Metabolic Gfz453 CL 98 mEq/L 09/07/2015 Comp Metabolic Qlp436 CO2 30.0 mEq/L 09/07/2015 Comp Metabolic Uyh994 AN ION GAP 13 09/07/2015 Comp Metabolic Eie692 GL UCOSE 101 mg/dL 09/07/2015 Comp Metabolic Kze446 Cr eat 0.6 mg/dL 09/07/2015 Comp Metabolic Yvb196 eG FR 111 ml/min/1.73m2 08/27 Comp Metabolic Egt728 BUN 16 mg/dL 09/07/2015 Comp Metabolic Dvp710 B/ C Ratio 28.6 Ratio 09/07/2015 Comp Metabolic Fmv691 CA LCIUM 9.4 mg/dL 09/07/2015 Comp Metabolic Pna195 AL K PHOS 68 U/L 09/07/2015 Comp Metabolic Dzf609 T(SGOT) 16 U/L 09/07/2015 Comp Metabolic Dml968 AL T(SGPT) 12 U/L 09/07/2015 Comp Metabolic Dhg784 BI LI T 0.9 mg/dL 09/07/2015 Comp Metabolic Sgu840 AL BUMIN 4.1 g/dL 09/07/2015 Comp Metabolic Pgz696 TP RO 6.5 g/dL 09/07/2015 Comp Metabolic Ypz472 GL OB 2.4 g/dL 09/07/2015 Comp Metabolic Rva538 A/ G Ratio 1.7 Ratio 09/07/2015 Comp Metabolic Jie912 Os mo 275 mOsmo 09/07/2015 Cbc With [...] Differential Ord2 RDW 14.4 % 09/07/2015 TSH 1622439 TSH 0.920 uIU/ML 08/28/2014 CBC 0120646 WBC 12.5 10e9/L 08/28/2014 CBC 9674896 RBC 3.44 10e12/L 08/28/2014 CBC 0038175 HGB 10.3 g/dL 08/28/2014 CBC 3837260 HCT DET 33.9 % 08/28/2014 CBC 2087813 MCV 98.5 fL 08/28/2014 CBC 6094444 MCH 29.9 pg 08/28/2014 CBC 6276273 MCHC 30.4 g/dL 08/28/2014 CBC 8389662 PLT 412 10e9/L 08/28/2014 CBC 6549815 MPV 10.2 fL 08/28/2014 CBC 8207185 NNEKA % 68.5 % 08/28/2014 CBC 4207737 LY % 20.8 % 08/28/2014 CBC 3875140 MON % 9.9 % 08/28/2014 CBC 5574615 EOS % 0.6 % 08/28/2014 CBC 7622697 BASO % 0.2 % 08/28/2014 CBC 8436001 RDW 15.8 % 08/28/2014 CBC 0385213 ABS NNEKA 8.56 10e9/L 08/28/2014 CBC 3659378 ABS LYMPH 2.60 10e9/L 08/28/2014 CBC 1408052 ABS MONO 1.24 10e9/L 08/28/2014 CBC 1386667 ABS EOS 0.08 10e9/L 08/28/2014 CBC 1092797 ABS BASO 0.03 10e9/L 08/28/2014 CBC 4215018 RDW-SD 55.4 fL 08/28/2014 GFR CALC 7439554 GFR AA >60 ML/MIN 08/28/2014 GFR CALC 4351561 GFR NON -AA >60 ML/MIN 08/28/2014 LIPID GRP HDL TE ST 69 MG/DL 08/28/2014 LIPID GRP TRIG 158 MG/DL 08/28/2014 LIPID GRP TEST L DL 96 MG/DL 08/28/2014 LIPID GRP 7597130 CHOL 197 MG/DL 08/28/2014 LIPID GRP 0698355 RCHOL/ HDL 2.86 RATIO 08/28/2014 LIPID GRP NON-HD L CH 128 MG/DL 08/28/2014 CHEM 14 6049008 AST 14 U/L 08/28/2014 CHEM 14 0051115 ALT 13 IU/L 08/28/2014 CHEM 14 0650623 BUN 15 MG/DL 08/28/2014 CHEM 14 0374406 ALBUMIN 4.2 GM/DL 08/28/2014 CHEM 14 1389858 CHLORIDE 98 MMOL/L 08/28/2014 CHEM 14 3081579 BILI TOT 1.2 MG/DL 08/28/2014 CHEM 14 1346591 ALK PHOS 68 U/L 08/28/2014 CHEM 14 3243604 SODIUM 137 MMOL/L 08/28/2014 CHEM 14 0883793 CREATINI NE 0.68 MG/DL 08/28/2014 CHEM 14 0118316 CALCIUM 9.1 MG/DL 08/28/2014 CHEM 14 1203051 POTASSIUM 3.7 MMOL/L 08/28/2014 CHEM 14 7470463 PROT TOT 6.2 GM/DL 08/28/2014 CHEM 14 8514837 GLUCOSE 91 MG/DL 08/28/2014 CHEM 14 6421809 BICARB 31 MMOL/L 08/28/2014 CHEM 14 6253608 ANION GAP 8 MEQ/L 08/28/2014 FREE T4 1106830 FREE T4 1.44 NG/DL 08/28/2014 LIPID GRP HDL TE ST 73 MG/DL 04/16/2014 LIPID GRP TRIG 131 MG/DL 04/16/2014 LIPID GRP TEST L DL 99 MG/DL 04/16/2014 LIPID GRP CHOL 198 MG/DL 04/16/2014 LIPID GRP RCHOL/ HDL 2.71 RATIO 04/16/2014 LIPID GRP NON-HD L CH 125 MG/DL 04/16/2014 CHEM 14 6114848 AST 17 U/L 04/14/2014 CHEM 14 5714865 ALT 17 IU/L 04/14/2014 CHEM 14 3635405 BUN 15 MG/DL 04/14/2014 CHEM 14 4035479 ALBUMIN 4.3 GM/DL 04/14/2014 CHEM 14 4738967 CHLORIDE 96 MMOL/L 04/14/2014 CHEM 14 9822955 BILI TOT 0.9 MG/DL 04/14/2014 CHEM 14 5094391 ALK PHOS 65 U/L 04/14/2014 CHEM 14 1344057 SODIUM 135 MMOL/L 04/14/2014 CHEM 14 4085436 CREATINI NE 0.69 MG/DL 04/14/2014 CHEM 14 4339297 CALCIUM 9.5 MG/DL 04/14/2014 CHEM 14 1889594 POTASSIUM 4.1 MMOL/L 04/14/2014 CHEM 14 0035022 PROT TOT 6.6 GM/DL 04/14/2014 CHEM 14 8863661 GLUCOSE 104 MG/DL 04/14/2014 CHEM 14 2790548 BICARB 34 MMOL/L 04/14/2014 CHEM 14 1829486 ANION GAP 5 MEQ/L 04/14/2014 A1C HPLC 3968264 A1C HPLC 00775-9 5.0 % 04/14/2014 TSH 9474904 TSH 2.140 uIU/ML 04/14/2014 FREE T4 8411026 FREE T4 1.56 NG/DL 04/14/2014 GFR CALC 2407178 GFR AA >60 ML/MIN 04/14/2014 GFR CALC 9263094 GFR NON -AA >60 ML/MIN 04/14/2014 CBC 9505341 WBC 12.8 10e9/L 04/14/2014 CBC 1439254 RBC 4.44 10e12/L 04/14/2014 CBC 7230940 HGB 13.2 g/dL 04/14/2014 CBC 1856542 HCT DET 41.4 % 04/14/2014 CBC 2170340 MCV 93.2 fL 04/14/2014 CBC 6387797 MCH 29.7 pg 04/14/2014 CBC 6609894 MCHC 31.9 g/dL 04/14/2014 CBC 2795230 PLT 383 10e9/L 04/14/2014 CBC 9301344 MPV 10.1 fL 04/14/2014 CBC 5168984 NNEKA % 65.5 % 04/14/2014 CBC 4844638 LY % 23.0 % 04/14/2014 CBC 2479839 MON % 9.9 % 04/14/2014 CBC 8753858 EOS % 1.3 % 04/14/2014 CBC 0101700 BASO % 0.3 % 04/14/2014 CBC 8070953 RDW 13.7 % 04/14/2014 CBC 7153491 ABS NNEKA 8.38 10e9/L 04/14/2014 CBC 1467316 ABS LYMPH 2.94 10e9/L 04/14/2014 CBC 2323613 ABS MONO 1.27 10e9/L 04/14/2014 CBC 4616750 ABS EOS 0.17 10e9/L 04/14/2014 CBC 1255919 ABS BASO 0.04 10e9/L 04/14/2014 CBC 4439164 RDW-SD 45.9 fL 04/14/2014 A1C HPLC 7798643 A1C HPLC 90545-0 4.9 % 11/13/2013 CHEM 14 1613378 AST 15 U/L 11/12/2013 CHEM 14 3317684 ALT 14 IU/L 11/12/2013 CHEM 14 3156142 BUN 14 MG/DL 11/12/2013 CHEM 14 4718832 ALBUMIN 4.3 GM/DL 11/12/2013 CHEM 14 4006865 CHLORIDE 101 MMOL/L 11/12/2013 CHEM 14 2156560 BILI TOT 0.9 MG/DL 11/12/2013 CHEM 14 9553952 ALK PHOS 67 U/L 11/12/2013 CHEM 14 2318283 SODIUM 139 MMOL/L 11/12/2013 CHEM 14 7031397 CREATINI NE 0.67 MG/DL 11/12/2013 CHEM 14 6750405 CALCIUM 9.5 MG/DL 11/12/2013 CHEM 14 6482865 POTASSIUM 4.1 MMOL/L 11/12/2013 CHEM 14 4799757 PROT TOT 6.5 GM/DL 11/12/2013 CHEM 14 6712380 GLUCOSE 102 MG/DL 11/12/2013 CHEM 14 3933333 BICARB 30 MMOL/L 11/12/2013 CHEM 14 8007277 ANION GAP 8 MEQ/L 11/12/2013 GFR CALC 8020157 GFR AA >60 ML/MIN 11/12/2013 GFR CALC 6190110 GFR NON -AA >60 ML/MIN 11/12/2013 TSH 6045152 TSH 2.445 uIU/ML 11/12/2013 FREE T4 1062888 FREE T4 1.09 NG/DL 11/12/2013 CBC 8164118 WBC 7.6 10e9/L 11/12/2013 CBC 2772292 RBC 4.42 10e12/L 11/12/2013 CBC 0869915 HGB 13.1 g/dL 11/12/2013 CBC 2710908 HCT DET 41.2 % 11/12/2013 CBC 7682723 MCV 93.2 fL 11/12/2013 CBC 3177328 MCH 29.6 pg 11/12/2013 CBC 7641453 MCHC 31.8 g/dL 11/12/2013 CBC 0437137 PLT 314 10e9/L 11/12/2013 CBC 6196396 MPV 10.4 fL 11/12/2013 CBC 5725857 NNEKA % 59.8 % 11/12/2013 CBC 5179782 LY % 28.1 % 11/12/2013 CBC 3581493 MON % 9.5 % 11/12/2013 CBC 0768554 EOS % 1.8 % 11/12/2013 CBC 7257998 BASO % 0.8 % 11/12/2013 CBC 9933221 RDW 13.8 % 11/12/2013 CBC 3120998 ABS NNEKA 4.54 10e9/L 11/12/2013 CBC 8052639 ABS LYMPH 2.14 10e9/L 11/12/2013 CBC 0157246 ABS MONO 0.72 10e9/L 11/12/2013 CBC 1716407 ABS EOS 0.14 10e9/L 11/12/2013 CBC 8927788 ABS BASO 0.06 10e9/L 11/12/2013 CBC 5668091 RDW-SD 46.0 fL 11/12/2013 LIPID GRP HDL TE ST 66 MG/DL 11/12/2013 LIPID GRP TRIG 130 MG/DL 11/12/2013 LIPID GRP 8219713 TEST L DL 108 MG/DL 11/12/2013 LIPID GRP 6697973 CHOL 200 MG/DL 11/12/2013 LIPID GRP RCHOL/ HDL 3.03 RATIO 11/12/2013 HS ENE ZOS 6292206 HS VA R ZOS IMMUNE 04/04/2013 A1C 1732339 A1C HPLC 83468-2 5.2 % 04/03/2013 GFR CALC 7101636 GFR AA >60 ML/MIN 03/31/2013 GFR CALC 7441970 GFR NON -AA >60 ML/MIN 03/31/2013 TSH 8582714 TSH 2.689 uIU/ML 03/31/2013 LIPID GRP HDL TE ST 63 MG/DL 03/31/2013 LIPID GRP TRIG 157 MG/DL 03/31/2013 LIPID GRP TEST L DL 98 MG/DL 03/31/2013 LIPID GRP CHOL 192 MG/DL 03/31/2013 LIPID GRP RCHOL/ HDL 3.05 RATIO 03/31/2013 FREE T4 6802231 FREE T4 1.19 NG/DL 03/31/2013 CHEM 14 4022139 AST 16 U/L 03/31/2013 CHEM 14 2417553 ALT 12 IU/L 03/31/2013 CHEM 14 1066679 BUN 17 MG/DL 03/31/2013 CHEM 14 1720870 ALBUMIN 4.5 GM/DL 03/31/2013 CHEM 14 7082362 CHLORIDE 98 MMOL/L 03/31/2013 CHEM 14 4288548 BILI TOT 0.7 MG/DL 03/31/2013 CHEM 14 9780150 ALK PHOS 53 U/L 03/31/2013 CHEM 14 0711698 SODIUM 137 MMOL/L 03/31/2013 CHEM 14 3927213 CREATINI NE 0.66 MG/DL 03/31/2013 CHEM 14 7374477 CALCIUM 9.6 MG/DL 03/31/2013 CHEM 14 9556659 POTASSIUM 4.2 MMOL/L 03/31/2013 CHEM 14 7795125 PROT TOT 6.7 GM/DL 03/31/2013 CHEM 14 8180204 GLUCOSE 101 MG/DL 03/31/2013 CHEM 14 1555008 BICARB 33 MMOL/L 03/31/2013 CHEM 14 3371307 ANION GAP 6 MEQ/L 03/31/2013 CBC 4355394 WBC 7.5 10e9/L 03/31/2013 CBC 3403224 RBC 4.39 10e12/L 03/31/2013 CBC 8164010 HGB 13.0 g/dL 03/31/2013 CBC 1472760 HCT DET 40.2 % 03/31/2013 CBC 3996620 MCV 91.6 fL 03/31/2013 CBC 0850646 MCH 29.6 pg 03/31/2013 CBC 3140578 MCHC 32.3 g/dL 03/31/2013 CBC 2104088 PLT 305 10e9/L 03/31/2013 CBC 5946122 MPV 10.4 fL 03/31/2013 CBC 6510199 NNEKA % 56.8 % 03/31/2013 CBC 3199221 LY % 30.3 % 03/31/2013 CBC 2217525 MON % 9.8 % 03/31/2013 CBC 4114389 EOS % 2.3 % 03/31/2013 CBC 4100863 BASO % 0.8 % 03/31/2013 CBC 6089421 RDW 13.2 % 03/31/2013 CBC 6584729 ABS NNEKA 4.26 10e9/L 03/31/2013 CBC 3419789 ABS LYMPH 2.27 10e9/L 03/31/2013 CBC 9928449 ABS MONO 0.74 10e9/L 03/31/2013 CBC 4995581 ABS EOS 0.17 10e9/L 03/31/2013 CBC [id number] ABS BASO 0.06 10e9/L 03/31/2013 CBC 8535819 RDW-SD 43.2 fL 03/31/2013 LIPID GRP HDL TE ST 49 MG/DL 09/11/2012 LIPID GRP TRIG 134 MG/DL 09/11/2012 LIPID GRP TEST L DL 81 MG/DL 09/11/2012 LIPID GRP CHOL 157 MG/DL 09/11/2012 LIPID GRP RCHOL/ HDL 3.20 RATIO 09/11/2012 TSH 0063685 TSH 2.118 uIU/ML 09/11/2012 CBC 4178679 WBC 7.5 10e9/L 09/11/2012 CBC 0612895 RBC 3.99 10e12/L 09/11/2012 CBC 2824560 HGB 11.7 g/dL 09/11/2012 CBC 4178477 HCT DET 37.7 % 09/11/2012 CBC 4539736 MCV 94.5 fL 09/11/2012 CBC 9999591 MCH 29.3 pg 09/11/2012 CBC 1022678 MCHC 31.0 g/dL 09/11/2012 CBC 4335937 PLT 384 10e9/L 09/11/2012 CBC 4879902 MPV 11.0 fL 09/11/2012 CBC 8880146 NNEKA % 51.7 % 09/11/2012 CBC 2841698 LY % 35.2 % 09/11/2012 CBC 4248752 MON % 10.4 % 09/11/2012 CBC 0465464 EOS % 2.3 % 09/11/2012 CBC 4956191 BASO % 0.4 % 09/11/2012 CBC 3742204 RDW 14.2 % 09/11/2012 CBC 1073541 ABS NNEKA 3.88 10e9/L 09/11/2012 CBC 5320050 ABS LYMPH 2.64 10e9/L 09/11/2012 CBC 2129041 ABS MONO 0.78 10e9/L 09/11/2012 CBC 9649097 ABS EOS 0.17 10e9/L 09/11/2012 CBC 6767210 ABS BASO 0.03 10e9/L 09/11/2012 CBC 1704989 RDW-SD 47.1 fL 09/11/2012 CHEM 14 2345078 AST 16 U/L 09/11/2012 CHEM 14 4268817 ALT 15 IU/L 09/11/2012 CHEM 14 3291405 BUN 11 MG/DL 09/11/2012 CHEM 14 0245695 ALBUMIN 4.2 GM/DL 09/11/2012 CHEM 14 8461712 CHLORIDE 101 MMOL/L 09/11/2012 CHEM 14 5724585 BILI TOT 0.8 MG/DL 09/11/2012 CHEM 14 8787147 ALK PHOS 57 U/L 09/11/2012 CHEM 14 7222740 SODIUM 141 MMOL/L 09/11/2012 CHEM 14 1515697 CREATINI NE 0.62 MG/DL 09/11/2012 CHEM 14 0264389 CALCIUM 9.5 MG/DL 09/11/2012 CHEM 14 0478220 POTASSIUM 4.7 MMOL/L 09/11/2012 CHEM 14 7147705 PROT TOT 6.6 GM/DL 09/11/2012 CHEM 14 3487890 GLUCOSE 90 MG/DL 09/11/2012 CHEM 14 9421583 BICARB 32 MMOL/L 09/11/2012 CHEM 14 1548679 ANION GAP 8 MEQ/L 09/11/2012 A1C HPLC 2662567 A1C HPLC 43809-2 4.5 % 09/11/2012 GFR CALC 0150468 GFR AA >60 ML/MIN 09/11/2012 GFR CALC 2835978 GFR NON -AA >60 ML/MIN 09/11/2012 FREE T4 7518028 FREE T4 1.30 NG/DL 09/11/2012 BMP 2704298 GLUCOSE 93 MG/DL 04/16/2012 BMP 5093490 CREATININE 0.64 MG/DL 04/16/2012 BMP 4710939 BUN 12 MG/DL 04/16/2012 BMP 3196152 SODIUM 139 MMOL/L 04/16/2012 BMP 4481701 POTASSIUM 4.1 MMOL/L 04/16/2012 BMP 0874854 CHLORIDE 99 MMOL/L 04/16/2012 BMP 4355892 BICARB 32 MMOL/L 04/16/2012 BMP 5752734 ANION GAP 8 MEQ/L 04/16/2012 BMP 1424369 CALCIUM 9.8 MG/DL 04/16/2012 CBC 0594470 WBC 8.5 10e9/L 04/16/2012 CBC 8315974 RBC 3.98 10e12/L 04/16/2012 CBC 7096574 HGB 11.5 g/dL 04/16/2012 CBC 4377889 HCT DET 36.7 % 04/16/2012 CBC 5125782 MCV 92.2 fL 04/16/2012 CBC 3937519 MCH 28.9 pg 04/16/2012 CBC 7087795 MCHC 31.3 g/dL 04/16/2012 CBC 0753066 PLT 321 10e9/L 04/16/2012 CBC 1003435 MPV 10.2 fL 04/16/2012 CBC 7390304 NNEKA % 64.3 % 04/16/2012 CBC 5289908 LY % 24.3 % 04/16/2012 CBC 7747646 MON % 9.0 % 04/16/2012 CBC 7074695 EOS % 1.9 % 04/16/2012 CBC 3858813 BASO % 0.5 % 04/16/2012 CBC 0483275 RDW 13.7 % 04/16/2012 CBC 2722849 ABS NNEKA 5.47 10e9/L 04/16/2012 CBC 9123274 ABS LYMPH 2.07 10e9/L 04/16/2012 CBC 5726607 ABS MONO 0.77 10e9/L 04/16/2012 CBC 4855911 ABS EOS 0.16 10e9/L 04/16/2012 CBC [id number] ABS BASO 0.04 10e9/L 04/16/2012 CBC [id number] RDW-SD 44.6 fL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 HYPOTHYROIDISM[ICD9: 244.9] Diagnosis: Nocturnal hypoxaemia[ICD9: 799.02] Concepción Flanagan MD, [facility] CPT- 4: 96371 01/21/2014 ([id number]) 33006 EST. P ATIENT, LEVEL III Diagnosis: ESSENTIAL HYPERTENSION[SNOMED: 87955433] Diagnosis: Bradycardia[ICD9: 427.89] Concepción Flanagan MD, [facility] CPT-4: 04790 01/07/2014 ([id number]) 40803 EST. P ATIENT, LEVEL III Diagnosis: ACUTE URI[ICD9: 465.9] Diagnosis: COUGH[ICD9: 786.2] Chaparrita Flanagan MD, [facility] CPT-4: 86193 12/26/2013 ([id number]) 14263 EST. P ATIENT, LEVEL III Diagnosis: ALLERGIC RHINITIS[ICD9: 477.9] Diagnosis: HYPERLIPIDEMIA[ICD9: 272.4] Diagnosis: ESSENTIAL HYPERTENSION[SNOMED: 98519989] Diagnosis: ENCNTR LONG-RX USE NEC[ICD9: V58.69] Diagnosis: Laboratory exam ordered as part of routine general medical examination[ICD9: V72.62] Diagnosis: HYPOTHYROIDISM[ICD9: 244.9] Chaparrita Flanagan MD, [facility] CPT- 4: 54347 11/12/2013 ([id number]) 37339 EST. P ATIENT, LEVEL III Diagnosis: Acute maxillary sinusitis[ICD9: 461.0] Chaparrita Flanagan MD, [facility] CPT-4: 98699 10/09/2013 ([id number]) 66905 EST. P ATIENT, LEVEL III Diagnosis: ESSENTIAL HYPERTENSION[SNOMED: 62075249] Diagnosis: DYSURIA[ICD9: 788.1] Concepción Flanagan MD, [facility] CPT-4: 31633 04/03/2013 ([id number]) 00872 EST. P ATIENT, LEVEL III Diagnosis: ESSENTIAL HYPERTENSION[SNOMED: 94188385] Diagnosis: EDEMA[ICD9: 782.3] Concepción Flanagan MD, [facility] CPT-4: 75074 01/06/2013 ([id number]) 25925 EST. P ATIENT, LEVEL III Diagnosis: UNSPECIFIED ASTHMA[ICD9: 493.90] Diagnosis: Cough[ICD9: 786.2] Diagnosis: ALLERGIC RHINITIS[ICD9: 477.9] Concepción Flanagan MD, [facility] CPT-4: 50476 11/21/2012 ([id number]) 45200 EST. P ATIENT, LEVEL IV Diagnosis: ESSENTIAL HYPERTENSION[SNOMED: 18502026] Diagnosis: EDEMA[ICD9: 782.3] Concepción Flanagan MD, [facility] CPT-4: 04980 10/28/2012 ([id number]) 66985 EST. P ATIENT, LEVEL IV Diagnosis: ESSENTIAL HYPERTENSION[SNOMED: 67358335] Diagnosis: EDEMA[ICD9: 782.3] Diagnosis: Knee pain, right[ICD9: 719.46] Diagnosis: Urge incontinence[ICD9: 788.31] Concepción Flanagan MD, [facility] CPT-4: 54551 09/30/2012 ([id number]) 49331 EST. P ATIENT, LEVEL III Diagnosis: ESSENTIAL HYPERTENSION[SNOMED: 65599269] Concepicón Flanagan MD, C CPT-4: 74306 08/14/2012 ([id number]) 49136 EST. P ATIENT, LEVEL III Diagnosis: CELLULITIS OF LEG[ICD9: 682.6] Concepción Flanagan MD, [facility] CPT-4: 08584 08/05/2012 ([id number]) 93845 EST. P ATIENT, LEVEL IV Diagnosis: ESSENTIAL HYPERTENSION[SNOMED: 17967559] Diagnosis: EDEMA[ICD9: 782.3] Diagnosis: Constipation[ICD9: 564.00] Concepción Flanagan MD, [facility] CPT-4: 13960 07/15/2012 ([id number]) 02602 EST. P ATIENT, LEVEL III Diagnosis: Subungual contusion of toenail[ICD9: 924.3] Concepción Flanagan MD, [facility] CPT-4: 35999 05/27/2012 Postop follow up vis it related to original px Diagnosis: BENIGN ERLINDA SKIN ARM[ICD9: 216.6] Diagnosis: BENIGN ERLINDA SKIN TRUNK[ICD9: 216.5] Concepción Flanagan MD, [facility] CPT- 4: 88775 05/03/2012 ([id number]) 89360 EST. P ATIENT, LEVEL IV Diagnosis: ESSENTIAL HYPERTENSION[SNOMED: 28399180] Diagnosis: OA (osteoarthritis) of knee[ICD9: 715.96] Diagnosis: EDEMA[ICD9: 782.3] Concepción Flanagan MD, [facility] CPT-4: 30739 03/25/2012 94792 EST. PATIENT, LEVEL IV Diagnosis: ESSENTIAL HYPERTENSION[SNOMED: 18895253] Diagnosis: Abdominal bloating[ICD9: 787.3] Concepción Flanagan MD, [facility] CPT-4: 09520 03/12/2012 ([id number]) 98361 EST. P ATIENT, LEVEL IV Diagnosis: ESSENTIAL HYPERTENSION[SNOMED: 98770967] Diagnosis: EDEMA[ICD9: 782.3] Concepción Flanagan MD, [facility] CPT-4: 90305 01/23/2012 ([id number]) 20456 EST. P ATIENT, LEVEL III Diagnosis: Breast pain, left[ICD9: 611.71] Chaparrita Flanagan MD, [facility] CPT- 4: 35384 01/12/2012 ([id number]) 31605 EST. P ATIENT, LEVEL IV Diagnosis: ESSENTIAL HYPERTENSION[SNOMED: 58174531] Diagnosis: DEPRESSIVE DISORDER NEC[ICD9: 311] Diagnosis: ANXIETY STATE[ICD9: 300.00] Concepción Flanagan MD, [facility] CPT-4: 48168 12/25/2011 ([id number]) 16394 EST. P ATIENT, LEVEL IV Diagnosis: ESSENTIAL HYPERTENSION[SNOMED: 98000222] Diagnosis: EDEMA[ICD9: 782.3] Concepción Flanagan MD, [facility] CPT-4: 81195 12/04/2011 ([id number]) 09269 EST. P ATIENT, LEVEL IV Diagnosis: ESSENTIAL HYPERTENSION[SNOMED: 36026226] Diagnosis: DEPRESSIVE DISORDER NEC[ICD9: 311] Concepción Flanagan MD, [facility] CPT- 4: 36554 09/20/2011 97062 EST. PATIENT, LEVEL IV Diagnosis: Dysuria[ICD9: 788.1] Diagnosis: ESSENTIAL HYPERTENSION[SNOMED: 20563852] Diagnosis: Anxiety[ICD9: 300.00] Concepción Flanagan MD, [facility] CPT-4: 85389 09/06/2011 ([id number]) 13223 EST. P ATIENT, LEVEL IV Diagnosis: LUMBAGO[ICD9: 724.2] Diagnosis: ESSENTIAL HYPERTENSION[SNOMED: 04223168] Concepción Flanagan MD, [facility] CPT-4: 44887 08/30/2011 50458 EST. PATIENT, LEVEL III Diagnosis: ACUTE SINUSITIS[ICD9: 461.9] Diagnosis: Urinary frequency[ICD9: 788.41] Chaparrita Flanagan MD, [facility] CPT- 4: 51915 08/23/2011 27085 EST. PATIENT, LEVEL III Diagnosis: Lesion of labia[ICD9: 624.8] Chaparrita Flanagan MD, [facility] CPT- 4: 76234 08/09/2011 94741 EST. PATIENT, LEVEL IV Diagnosis: HYPOTHYROIDISM[ICD9: 244.9] Diagnosis: HYPERLIPIDEMIA[ICD9: 272.4] Diagnosis: BP (high blood pressure)[SNOMED: 33353113] Diagnosis: Knee pain, bilateral[ICD9: 719.46] Diagnosis: ESOPHAGEAL REFLUX[ICD9: 530.81] Concepción Flanagan MD, [facility] CPT-4: 34957 05/04/2011 56847 EST. PATIENT, LEVEL III Diagnosis: ACUTE URI[ICD9: 465.9] Diagnosis: Asthma[ICD9: 493.90] Diagnosis: Esophageal reflux[ICD9: 530.81] Chaparrita Berny Flanagan MD, [facility] CPT- 4: 46347 04/19/2011 Plan of Care Planned Activity Notes C odes Status Date Visit Plan: Hypertension - well con trolled - continue with current medications, continue with no added salt diet. Pt has been encouraged to exercise daily. The pt has been advised to call the office if there are any acute concerns about change in blood pressure readings at home. 04/01/2019 Appointment: Concepción Flanagan WPtel: [phone] [facility] (15 min) Moderate 04/01/2019 Patient Education: [...] today 03/11/2019 Appointment: Concepción Flanagan WPtel: [phone] [facility] (15 min) Moderate 03/11/2019 Patient Education: [...] this time. 09/03/2018 Appointment: Concepción Flanagan WPtel: [address] [place], [place] [address] (15 min) Moderate 09/03/2018 Patient Education: Patient [...] back. 05/29/2018 Appointment: [phone] ([facility] min) Moderate 05/29/2018 Patient Education: Patient Medication Summary Completed 05/29/2018 Care Plan: Referral Order SNOMED-CT : 736316539 Pending 05/29/2018 Visit Plan: Wound Instructions - Pt was instructed to keep the wound clean, call if redness, pustular drainage, or any other acute concerns. 04/30/2018 Appointment: Nurse Visit 04/30/2018 Patient Education: Patient Medication Summary Completed 04/30/2018 Visit Plan: Medicare Exam - today w duarte discussed the patients past history, immunizations, preventative [...] hearing. The wax was removed by the [facility] ctitioner due to the wax being more complicated to remove, and staff was needed to assist the removal of the wax by holding the ear, and keeping patient stabilized during the removal process. 02/06/2018 Appointment: Hay[facility] London [phone] (15 min) Moderate 02/06/2018 Patient Education: Patient [...] medications. 01/23/2018 Appointment: [facility]agan [phone] (15 min) Moderate 01/23/2018 Patient Education: Patient Medication Summary Completed 01/23/2018 Visit Plan: Cough - improved - sinu sitis resolved. 09/26/2017 Appointment: [facility]agan [phone] (15 min) Moderate 09/26/2017 Patient Education: Patient Medication Summary Completed 09/26/2017 Visit Plan: Acute Maxillary Sinusit is - if not improving - pt would like to see an ENT - Hortensia Tompkins in [place]. Treatment as follows: cefdinir - antibiotic twice [...] hydrocodone. 09/12/2017 Appointment: Concepción [facility]agan [facility]el[phone] (15 min) Moderate 09/12/2017 Patient Education: Patient [...] spray. 08/31/2017 Appointment: Hayley London [facility]Ptel[phone] [place] (30 min) Complex 08/31/2017 Patient Education: Patient Medication Summary Completed 08/31/2017 Visit Plan: URI - Pt advised to inc rease fluids, vitamin C. Discussed natural and expected course of this diagnosis and need to alert me if symptoms do not follow expected course, or if any worse. RX sent to patient's pharmacy. 08/09/2017 Appointment: Chaparrita Arrieta WPtel: [phone] [phone] (30 min) Complex 08/09/2017 Patient Education: Patient [...] hydrocodone. 05/07/2017 Appointment: Concepción Flanagan [facility]Ptel: [phone] [facility] [place] (15 min) Moderate 05/07/2017 Patient Education: [...] care surrogate. 04/12/2017 Appointment: Hayley London WPtel: [facility] [place] [facility] - Annual Wellness Visit 04/12/2017 Patient Education: Patient Medication Summary Completed 04/12/2017 Appointment: Nurse Visit 02/15/2017 Patient Education: Patient Medication Summary Completed 02/15/2017 Visit Plan: Tclcy-wtjcigzlxg-uhksi zpack when finished with cipro-follow up chest [...] day-follow up Sunday02/02/2017 Appointment: Chaparrita Arrieta WPtel: [phone] [phone] (15 min) Moderate 02/02/2017 Patient Education: Patient Medication Summary Completed 02/02/2017 Patient Education: Obesity Completed 02/02/2017 Visit Plan: Sinusitis - Pt has acut e infection - pain in face, maxillary region, Pt informed to use decongestant, RX given to patient, sinus rinses also recommended. Call if symptoms do not show improvement. 01/15/2017 Appointment: Chaparrita Arrieta WPtel: [phone] [phone] (10 min) Simple 01/15/2017 Patient Education: Patient [...] today 01/04/2017 Appointment: Concepción Flanagan [facility]Ptel[phone] (15 min) Moderate 01/04/2017 Patient [...] (lexapro). 09/07/2016 Appointment: Concepción Flanagan WPtel: [phone] [facility] (30 min) Complex 09/07/2016 Patient Education: [...] at home. 07/06/2016 Appointment: Concepción Flanagan WPtel: [facility]4 [facility] (15 min) Moderate 07/06/2016 Patient Education: [...] TWICE DAILY 06/08/2016 Appointment: Concepción Flanagan WPtel: [facility] [place] (15 min) Moderate 06/08/2016 Patient [...] edema. 04/06/2016 Appointment: Concepción Flanagan [facility]Ptel[phone] (15 min) Moderate 04/06/2016 Patient [...] for Mikala. 01/18/2016 Appointment: Concepción Flanagan WPtel: [address] [place], [place] [address] (15 min) Moderate 01/18/2016 Patient Education: Patient [...] fax today's note to [employer] for re- certification of oxygen. 09/09/2015 [...] discuss with her son who is a [employer] - and consider re-evaluation for nasal pillows with her cpap since she could not tolerate a face mask cpap in the past. 12/25/2014 Appointment: Concepción Flanagan [facility]Ptel: [phone] [facility] Follow up 12/25/2014 Patient Education: Patient Medication [...] home. 10/13/2014 Appointment: Concepción Flanagan WPtel: [phone] [facility] [place] Follow up 10/13/2014 Patient Education: Patient Medication Summary Completed 10/13/2014 Patient Education: Hypertension Completed 10/13/2014 Visit Plan: Hypertension - well oswaldo dudley - continue with current medications, continue with [...] . 08/28/2014 Appointment: Concepción Flanagan WPtel: [phone] [facility] Follow up 08/28/2014 Patient Education: [...] creatinine. 04/16/2014 Appointment: Concepción Flanagan WPtel: [phone] [facility] Follow up 04/16/2014 Patient Education: Patient Medication Summary Completed 04/16/2014 Patient Education: Patient Medication Summary Completed 04/14/2014 Patient Education: Hypertension Completed 04/14/2014 Visit Plan: Wound Instructions - Pt was instruced to keep the wound clean, wash with antibacterial soap, use triple antibiotic ointment, call if redness, pustular drainage, or any other acute conerns. 01/27/2014 Appointment: Concepción Flanagan WPtel: [phone] [facility] [facility] Procedure 01/27/2014 Patient Education: [...] home eval. 01/21/2014 Appointment: Concepción Flanagan WPtel: [address] [place], [place] [phone] Follow up 01/21/2014 Patient Education: Patient Medication Summary Completed 01/21/2014 Patient Education: Hypertension Completed 01/21/2014 Visit Plan: Hypotension - Bradycard ia - pt to stop her metroprolol - check bp and heart rate twice daily and monitor symptoms. Call if bp uncontrolled- or heart rate to elevated. 01/07/2014 Appointment: Concepción Flanagan WPtel: [address] [place], [place] [phone] Follow up 01/07/2014 Patient Education: Hypertension Completed [...] and swallow 11/12/2013 Appointment: Chaparrita Arrieta WPtel: [address] [place], [place] [phone] [facility] 11/12/2013 Patient Education: Patient Medication Summary Completed 11/12/2013 Patient Education: Hypertension Completed 11/12/2013 Visit Plan: Sinusitis - Pt has acut e infection - pain in face, maxillary region, Pt informed to use decongestant, RX given to patient, sinus rinses also recommended. Call if symptoms do not show improvement. 10/09/2013 Appointment: Chaparrita Arrieta WPtel: [address] [place], [place] [phone] [place] Sick 10/09/2013 Patient Education: Patient Medication Summary [...] UA 04/03/2013 Appointment: Concepción Flanagan WPtel: [phone] [facility] Follow up 04/03/2013 Patient Education: Patient Medication Summary Completed 04/03/2013 Patient Education: Hypertension Completed 04/03/2013 Patient Education: Patient Medication Summary Completed 03/31/2013 Patient Education: Hypertension Completed 03/31/2013 Visit Plan: ua performed - sent for culture if indicated. 03/21/2013 Appointment: Concepción Flanagan WPtel: [phone] [facility] Lab Draw 03/21/2013 Patient Education: Patient [...] edema. 01/06/2013 Appointment: Concepción Flanagan WPtel: [phone] [facility] Follow up 01/06/2013 Patient Education: Patient Medication Summary Completed 01/06/2013 Patient Education: Hypertension Completed 01/06/2013 Visit Plan: Rhhiqsfgy-Iabnch-zkzchg ms not well controlled- KENALOG injection today [...] edema. 10/28/2012 Appointment: Concepción Flanagan WPtel: [phone] [facility] Follow up 10/28/2012 Patient Education: Patient [...] recommendations. 09/30/2012 Appointment: Concepción Flanagan WPtel: [phone] [facility] Follow up 09/30/2012 Patient Education: Patient Medication Summary Completed 09/30/2012 Patient Education: Hypertension Completed 09/30/2012 Appointment: Concepc[facility]agan [facility]Ptel[phone] [facility] 09/11/2012 Patient Education: [...] - resolved 08/14/2012 Appointment: Concepción Flanagan WPtel: [address] [place] [address] Follow up 08/14/2012 Patient Education: Patient Medication Summary Completed 08/14/2012 Patient Education: Hypertension Completed 08/14/2012 Visit Plan: Cellulitis - start with generic Bactrim DS as directed, return to clinic as previously directed, call for acute change in symptoms, worsening redness, warmth, discharge. 08/05/2012 Appointment: Concepción Flanagan WPtel: [address] [place] [address] Follow up 08/05/2012 Patient Education: Patient Medication [...] soften stools. 07/15/2012 Appointment: Concepción Flanagan WPtel: [address] [place] [address] Hospital follow up 07/15/2012 Patient Education: Patient Medication Summary Completed 07/15/2012 Patient Education: Hypertension Completed 07/15/2012 Visit Plan: Subungual discoloratiio n of toenail- June 10 pt is to see Dr[address] Bee - I have discussed the case with the pt and Dr. bee and she will likely have a biopsy of the digit and avulsion of the nail. 05/27/2012 Appointment: Concepción Flanagan WPtel: [address] [place], [place] [phone] Other 05/27/2012 Patient Education: Patient Medication Summary Completed 05/27/2012 Appointment: Chaparrita Arrieta WPtel: [phone] [place] Follow up 05/16/2012 Visit Plan: Obesity - [...] vaccine 05/03/2012 Appointment: Chaparrita Arrieta WPtel: [phone] Follow up 05/03/2012 Patient Education: Patient Medication Summary Completed 05/03/2012 Visit Plan: Wound Instructions - Pt was instruced to keep the wound clean, wash with antibacterial soap, use triple antibiotic ointment, call if redness, pustular drainage, or any other acute conerns. 04/23/2012 Appointment: Concepción Flanagan WPtel: [facility]5 [facility] [place] Surgical Procedure 04/23/2012 Patient Education: Patient Medication Summary Completed 04/23/2012 Appointment: Concepción Flanagan WPtel: [facility] Lab Draw 04/16/2012 Patient Education: [...] readings at home. Recommend follow up with meat molder for clearance before knee surgery. Will get [...] to thighs. 03/25/2012 Appointment: Concepción Flanagan WPtel: [facility] [place] 03/25/2012 Patient Education: Patient [...] of lesion. 03/12/2012 Appointment: Chaparrita Arrieta WPtel: [phone] [place] Other 03/12/2012 Patient Education: Patient Medication [...] at home. 01/23/2012 Appointment: Concepción Flanagan WPtel: [facility] [address] Other 01/23/2012 Patient Education: Patient Medication Summary Completed 01/23/2012 Patient Education: High Blood Pressure: Essential Hypertension Completed 01/23/2012 Visit Plan: Breast jqkq-mfwy-rtirfs sed natural and expected course of this diagnosis and to alert me if symptoms do not follow expected course, or if any worse. Plan for diagnostic mammogram, in meantime, instructed patient to get more supportive bra, use anti-inflammatories and monitor symptoms. Patient verbalized understanding of plan. 01/12/2012 Appointment: Chaparrita Arrieta WPtel: [facility]6 [facility] [place] [address] Other 01/12/2012 Patient Education: Patient Medication Summary [...] current medications. 12/25/2011 Appointment: Concepción Flanagan WPtel: [facility]4 [address] Other 12/25/2011 Patient Education: Patient Medication [...] SOCKS. 12/04/2011 Appointment: Concepc[facility] Flanagan [facility]Ptel: [phone] [place] Other 12/04/2011 Patient Education: Patient Medication Summary Completed 12/04/2011 Patient Education: High Blood Pressure: Essential Hypertension Completed 12/04/2011 Appointment: Chaparrita Arrieta WPtel: [phone] [phone] [place] Lab Draw 12/01/2011 Patient Education: Patient Medication Summary Completed 12/01/2011 Appointment: Concepción Flanagan WPtel: [phone] [place] Lab Draw 11/20/2011 Patient [...] acutely worsen. 09/20/2011 Appointment: Concepción Flanagan WPtel: [facility]3 [place] [phone] Other 09/20/2011 Patient Education: Patient Medication Summary Completed 09/20/2011 Patient Education: High Blood Pressure: Essential Hypertension Completed 09/20/2011 Appointment: Concepción Flanagan WPtel: [facility]6 [facility] [place] Other 09/13/2011 Visit Plan: Hypertension [...] benefits of treament with the above medications. Cityuod-quzamtgw-IM negative 09/06/2011 Appointment: Chaparrita Arrieta WPtel: [phone] Other 09/06/2011 Patient Education: Patient Medication Summary [...] they worsen. 08/30/2011 Appointment: Concepción Flanagan WPtel: [facility] [address] Other 08/30/2011 Patient Education: Patient Medication [...] patient's pharmacy. 08/23/2011 Appointment: Chaparrita Arrieta WPtel: [facility]7 [phone] [place] Other 08/23/2011 Patient Education: Patient Medication Summary Completed 08/23/2011 Visit Plan: Labial cyst-discussed n atural and expected course of this diagnosis and to alert me if symtpoms do not follow expected course, or if any worse. Patient and verbalized understanding. 08/09/2011 Appointment: Chaparrita Arrieta WPtel: [phone] [place] Other 08/09/2011 Patient Education: Patient Medication Summary Completed 08/09/2011 Visit Plan: Hypertension - castillo dudley - continue with current medications, continue with [...] improving. 05/04/2011 Appointment: Concepción Flanagan WPtel: [phone] [facility] [place] Other 05/04/2011 Patient Education: Patient [...] daily. 04/19/2011 Appointment: Chaparrita Arrieta WPtel: [phone] [place] Other 04/19/2011 Patient Education: Patient Medication Summary Completed 04/19/2011 Referral: External, Ordering Provider Referral Appointment Requested Instructions Comment . URI-discussed expe cted course with [...] twice daily and monitor symptoms. . Breast ulnp-hqvx-tatqpoqyj natural and expected course of this diagnosis [...] do not improve, or if any worse.. Sipvmourg-Gsbwoq-dbnsxavk not well controlled-KENALOG injection today in the [...] see an ENT - Hortensia Tompkins in [place]. Treatment as follows: cefdinir - antibiotic twice [...] discuss with her son who is a [employer] - and consider re-evaluation for nasal pillows [...] benefits of treament with the above medications. Nmucgya-tdbndeqm-XA negative . Subungual discolor atiion of toenail- [...] readings at home. Recommend follow up with meat molder for clearance before knee surgery. Will get [...] fatigue improved-will fax today's note to [employer] for re-certification of oxygen. . Hypertension - [...] fatigue improved-will fax today's note to [employer] for re-certification of oxygen. . Sinusitis - [...] worse. RX sent to patient's pharmacy. . Okhtb-owwavoqthu-[id number] tart zpack when finished with cipro- follow [...]
--- OUTSIDE RECORDS SUMMARY | 2020-01-05 01:16 | XMS REPORT | CCD ---
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 Name Role Phone Concepción Flanagan PP Unavailable CCM Unavailable Summary Purpose Interface Exchange Insurance Providers Payer name Policy type / Coverage type Covered democrat ID Effective Begin Date Effective End Date WPS Medicare Part B Medicare Part B [id number] Unknown AARP Medicare Part B [id number] Unknown Family history Son Diagnosis Age At [...] M arried 04/19/[address]: 7463743 Quit over 10 years ago 40 pack/year [...] Date Stop Date Sta tus Fill Instructions Xanax 0.25 mg tablet RxNorm: 570854 1-2 Tablet(s) PO QHS as needed insomnia 03/14/2019 06/11/2019 Ac tive Centrum Silver Ultra Women's tablet RxNorm: Tablet(s) PO No Stop Date Active prednisone 10 mg tablet RxNorm: 049079 2 Tablet(s) PO daily 03/11/2019 03/15/2019 Inactive doxycycline hyclate 100 mg tablet RxNorm: 3699328 1 Tablet(s) PO BID 03/11/2019 03/20/2019 Inactive Klor-Con 10 mEq tabl et,extended release RxNorm: 063990 Tablet(s) TAKE ONE TA BLET BY MOUTH DAILY 03/05/2019 11/29/2019 Active Klor-Con 10 mEq tabl et,extended release RxNorm: 022652 Tablet(s) TAKE ONE TA BLET BY MOUTH DAILY 03/05/2019 03/04/2019 Inactive Lasix 40 mg tablet RxNorm: 080173 TAKE ONE TABLET BY MOUTH DAILY 12/24/2018 06/21/2019 Ac tive Crestor 10 mg tablet RxNorm: 473437 TAKE 1 TABLET BY MOUTH ON SUNDAY, , AND Sunday12/03/2018 05/31/2019 Active Atacand 16 mg tablet RxNorm: 839756 1 Tablet(s) PO daily 11/06/2018 10/31/2019 Active replaces benicar Atacand 16 mg tablet RxNorm: 282965 1 Tablet(s) PO daily 11/06/2018 11/05/2018 Inactive replaces benicar meloxicam 15 mg tablet RxNorm: 055527 TAKE ONE TABLET BY MOUTH DAILY 10/08/2018 03/30/2020 Ac tive ProctoCream-HC 2.5 % rectal cream with applicator RxNorm: 944543 APPLY TO AFFECTED AREAS DIRECTED RTL 10/01/2018 No Stop Date Active Cartia XT 240 mg cap chad,extended release RxNorm: 363048 TAKE ONE CAPSULE BY M OUTH DAILY 09/23/2018 09/17/2019 Active Singulair 10 mg tablet RxNorm: 102338 TAKE ONE TABLET BY MOUTH EVERY DAY 09/06/2018 10/30/2019 Ac tive Klor-Con 10 mEq tabl et,extended release RxNorm: 536971 TAKE ONE TABLET BY [facility] TWICE A DAY 09/06/2018 03/04/2019 Inactive Xanax 0.25 mg tablet RxNorm: 595227 1-2 Tablet(s) PO QHS as needed insomnia 08/26/2018 11/22/2018 In active Voltaren 1 % topical gel RxNorm: 245273 APPLY TWO GRAMS TOPIC ALLY FOUR TIMES A DAY BILATERAL KNEES AND LOWER BACK 06/26/2018 09/23/2018 Inactive Lasix 40 mg tablet RxNorm: 408500 TAKE ONE TABLET BY MOUTH DAILY 06/20/2018 12/16/2018 In active Voltaren 1 % topical gel RxNorm: 846538 2 Gram(s) TOP QID basilia ateral knees and low back 05/29/2018 06/25/2018 Inactive Synthroid 50 mcg tablet RxNorm: 355274 Tablet(s) TAKE ONE TABLET BY MOUTH DAILY 05/17/2018 11/12/2018 In active Synthroid 50 mcg tablet RxNorm: 044340 TAKE ONE TABLET BY MOUTH DAILY 05/16/2018 05/16/2018 In active hydrocodone 5 mg-patrizia taminophen 325 mg tablet RxNorm: 583755 1/2 Tablet(s) PO QID as needed 05/15/2018 06/13/2018 Inactive Keflex 500 mg capsule RxNorm: 919417 1 Capsule(s) PO TID PRN 04/30/2018 05/06/2018 Inactive Silvadene 1 % topica l cream RxNorm: 011106 1 Application TOP BID 04/30/2018 05/09/2018 Inactive Anusol-HC 25 mg rect al suppository RxNorm: 9535362 1 Suppository PRN IN SERT 1 RECTALLY DAILY NEEDED 04/25/2018 No Stop Date Active Colace 100 mg capsule RxNorm: 4472856 1 Capsule(s) PO daily as needed 04/25/2018 No Stop Date Active Silvadene 1 % topica l cream RxNorm: 890996 1 Application TOP BID 04/25/2018 04/29/2018 Inactive meloxicam 15 mg tablet RxNorm: 576849 1 Tablet(s) PO daily TAKE ONE TABLET BY MOUTH ONE TIME A DAY 04/25/2018 10/07/2018 Inactive Benicar 40 mg tablet RxNorm: 574428 TAKE ONE TABLET BY MOUTH DAILY 04/04/2018 11/05/2018 In active Xanax 0.25 mg tablet RxNorm: 266019 1-2 Tablet(s) PO QHS as needed insomnia 03/07/2018 06/04/2018 In active Lasix 40 mg tablet RxNorm: 225819 TAKE ONE TABLET BY MOUTH DAILY 01/07/2018 06/19/2018 In active Crestor 10 mg tablet RxNorm: 249745 TAKE 1 TABLET BY MOUTH ON SUNDAY, , AND Sunday11/20/2017 05/18/2018 Inactive Synthroid 50 mcg tablet RxNorm: 918780 TAKE ONE TABLET BY MOUTH DAILY 11/14/2017 05/12/2018 In active Diflucan 150 mg tablet RxNorm: 070085 1 Tablet(s) PO daily 09/12/2017 09/25/2017 Inactive cefdinir 300 mg capsule RxNorm: 668791 1 Capsule(s) PO BID 09/12/2017 09/25/2017 Inactive Cartia XT 240 mg cap chad,extended release RxNorm: 541229 TAKE ONE CAPSULE BY M OUTH DAILY 09/12/2017 09/06/2018 Inactive prednisone 20 mg tablet RxNorm: 394994 2 Tablet(s) PO daily 08/31/2017 09/04/2017 Inactive Xanax 0.25 mg tablet RxNorm: 351610 1-2 Tablet(s) PO QHS as needed insomnia 08/28/2017 11/24/2017 In active Keflex 500 mg capsule RxNorm: 658002 1 Capsule(s) PO TID 08/28/2017 08/27/2017 Inactive Keflex 500 mg capsule RxNorm: 044825 1 Capsule(s) PO TID 08/28/2017 09/03/2017 Inactive Klor-Con 10 mEq tabl et,extended release RxNorm: 674779 TAKE ONE TABLET BY MO UTH TWICE A DAY 08/23/2017 08/17/2018 Inactive cefdinir 300 mg capsule RxNorm: 335440 1 Capsule(s) PO BID 08/13/2017 08/12/2017 Inactive cefdinir 300 mg capsule RxNorm: 332076 1 Capsule(s) PO BID 08/13/2017 08/19/2017 Inactive Kenalog 40 mg/mL heaven pension for injection RxNorm: 9231323 1 Milliliter(s) Inj 08/09/2017 08/09/2017 In active ceftriaxone 500 mg s olution for injection RxNorm: 3527547 Inj 08/09/2017 08/09/2017 Inactive Zithromax Z-Hebert 250 mg tablet RxNorm: 014648 1 Tablet(s) PO UD 08/09/2017 08/13/2017 Inactive Singulair 10 mg tablet RxNorm: 841957 TAKE ONE TABLET BY MOUTH EVERY DAY 08/03/2017 09/05/2018 In active Xanax 0.25 mg tablet RxNorm: 734842 1-2 Tablet(s) PO QHS as needed insomnia 07/25/2017 05/28/2018 In active Benicar 40 mg tablet RxNorm: 621626 TAKE ONE TABLET BY MOUTH DAILY 07/09/2017 04/03/2018 In active Lasix 40 mg tablet RxNorm: 825535 TAKE ONE TABLET BY MOUTH DAILY 07/09/2017 01/04/2018 In active Synthroid 50 mcg tablet RxNorm: 235551 1 Tablet(s) PO daily TAKE ONE TABLET BY MOUTH DAILY 05/21/2017 11/13/2017 Inactive Must be name brand Lasix 40 mg tablet RxNorm: 814378 TAKE ONE TABLET BY MOUTH DAILY 04/12/2017 07/08/2017 In active Zithromax Z-Hebert 250 mg tablet RxNorm: 392163 1 Tablet(s) PO UD 02/05/2017 02/09/2017 Inactive start with finished with cipro Cipro 500 mg tablet RxNorm: 114768 1 Tablet(s) PO BID 02/01/2017 02/07/2017 Inactive prednisone 20 mg tablet RxNorm: 843008 1 Tablet(s) PO BID 01/15/2017 01/19/2017 Inactive take 1 in the morning and 1 at noon calcium carbonate 60 0 mg calcium (1,500 mg) tablet RxNorm: 020950 1 Tablet(s) PO daily 01/04/2017 No Stop Date Active Kenalog 40 mg/mL heaven pension for injection RxNorm: 3119388 1 Milliliter(s) Inj 01/04/2017 01/04/2017 In active Anusol-HC 25 mg rect al suppository RxNorm: 4673213 1 Suppository PRN IN SERT 1 RECTALLY DAILY NEEDED 01/04/2017 04/03/2017 Inactive Lasix 40 mg tablet RxNorm: 009735 TAKE ONE TABLET BY MOUTH DAILY 12/20/2016 04/11/2017 In active Cartia XT 240 mg cap chad,extended release RxNorm: 650971 TAKE ONE CAPSULE BY M OUTH DAILY 12/20/2016 09/11/2017 Inactive Synthroid 50 mcg tablet RxNorm: 763712 1 Tablet(s) PO daily TAKE ONE TABLET BY MOUTH DAILY 11/27/2016 05/20/2017 Inactive Must be name brand meloxicam 15 mg tablet RxNorm: 820102 Tablet(s) TAKE ONE TABLET BY MOUTH ONE T MARÍA ELENA A DAY 11/27/2016 06/24/2017 Inactive Crestor 10 mg tablet RxNorm: 846746 TAKE 1 TABLET BY MOUTH ON SUNDAY, , AND Sunday11/13/2016 10/14/2017 Inactive Lexapro 10 mg tablet RxNorm: 810594 1 Tablet(s) PO daily 09/07/2016 01/03/2017 Inactive please make sure that her RX for lexapro is a 10mg dose - delete the 5mg lexapro pill - this is FYI Klor-Con 10 mEq tabl et,extended release RxNorm: 015417 TAKE ONE TABLET BY MO UTH TWICE A DAY 08/29/2016 02/24/2017 Inactive Kenalog 40 mg/mL heaven pension for injection RxNorm: 7661861 Milliliter(s) Inj 08/23/2016 08/23/2016 In active cefdinir 300 mg capsule RxNorm: 169362 1 Capsule(s) PO BID 08/22/2016 08/28/2016 Inactive take probiotic while on abx Zithromax Z-Hebert 250 mg tablet RxNorm: 269122 1 Tablet(s) PO UD 08/11/2016 09/06/2016 Inactive Z PACK DIRECTED Lexapro 5 mg tablet RxNorm: 214763 TAKE ONE TABLET BY MOUTH EVERY EVENING 07/18/2016 09/06/2016 In active Singulair 10 mg tablet RxNorm: 855765 TAKE ONE TABLET BY MOUTH EVERY DAY 07/17/2016 08/02/2017 In active Benicar 40 mg tablet RxNorm: 221937 TAKE ONE TABLET BY MOUTH DAILY 07/17/2016 07/08/2017 In active Lexapro 10 mg tablet RxNorm: 575540 1 Tablet(s) PO daily 06/16/2016 09/06/2016 Inactive diltiazem ER 180 mg capsule,extended release RxNorm: 769937 TAKE ONE CAPSULE BY M OUTH DAILY 06/15/2016 07/05/2016 Inactive Lexapro 10 mg tablet RxNorm: 281701 1 Tablet(s) PO daily 06/08/2016 06/15/2016 Inactive gabapentin 600 mg ta blet RxNorm: 937037 TAKE ONE TABLET BY MO UTH EVERY NIGHT AT BEDTIME NEEDED 04/27/2016 04/11/2017 Inactive Cartia XT 240 mg cap chad,extended release RxNorm: 602961 1 Capsule(s) PO daily TAKE ONE CAPSULE BY MOUTH ONCE A DAY 04/17/2016 12/19/2016 Inactive Benicar 40 mg tablet RxNorm: 278728 1 Tablet(s) PO daily 04/17/2016 07/16/2016 Inactive she can do 90 days if she wants to Lexapro 5 mg tablet RxNorm: 342074 1 Tablet(s) PO QPM 03/09/2016 06/07/2016 Inactive Synthroid 50 mcg tablet RxNorm: 281842 1 Tablet(s) PO daily TAKE ONE TABLET BY MOUTH DAILY 01/18/2016 07/15/2016 Inactive Colace 100 mg capsule RxNorm: 7107126 1 Capsule(s) PO daily 01/18/2016 04/24/2018 Inactive hydrocodone 5 mg-patrizia taminophen 325 mg tablet RxNorm: 215620 1/2 Tablet(s) PO QID as needed 01/18/2016 02/16/2016 Inactive Synthroid 50 mcg tablet RxNorm: 202359 Tablet(s) TAKE ONE TABLET BY MOUTH DAILY 12/23/2015 01/17/2016 In active Benicar 40 mg tablet RxNorm: 094628 1 Tablet(s) PO daily 12/13/2015 12/12/2015 Inactive Benicar 40 mg tablet RxNorm: 322091 1 Tablet(s) PO daily 12/13/2015 04/10/2016 Inactive meloxicam 15 mg tablet RxNorm: 245871 TAKE ONE TABLET BY MOUTH ONE TIME A DAY 11/12/2015 06/08/2016 In active meloxicam 15 mg tablet RxNorm: 277715 Tablet(s) TAKE ONE TABLET BY MOUTH ONE T MARÍA ELENA A DAY 11/11/2015 11/11/2015 Inactive Lasix 40 mg tablet RxNorm: 333302 Tablet(s) TAKE ONE TABLET BY MOUTH EVERY DAY 10/19/2015 12/19/2016 Inactive diltiazem ER 180 mg capsule,extended release RxNorm: 272471 1 Capsule(s) daily TA KE ONE CAPSULE BY MOUTH ONCE A DAY 09/27/2015 04/16/2016 Inactive Crestor 10 mg tablet RxNorm: 661986 1 Tablet(s) PO Sun09/17/2015 07/12/2016 Inactive [SAVINGS FOR UNINSURED PATIENTS -- BIN:0 52180, PCN: ASPROD1, Group: [id number], ID# [id number], Process claim through [employer], for questions: . THIS IS NOT INSURANCE.] hydrocodone 5 mg-patrizia taminophen 325 mg tablet RxNorm: 927445 1-2 Tablet(s) PO Q6 P RN 09/09/2015 10/08/2015 In active Micardis 80 mg tablet RxNorm: 610607 1 Tablet(s) PO daily TAKE ONE TABLET BY MOUTH DAILY 08/23/2015 12/12/2015 Inactive Klor-Con 10 mEq tabl et,extended release RxNorm: 104177 Tablet(s) TAKE ONE TA BLET BY MOUTH TWICE A DAY 08/23/2015 02/18/2016 Inactive Synthroid 50 mcg tablet RxNorm: 226686 TAKE ONE TABLET BY MOUTH DAILY 07/06/2015 12/22/2015 In active meloxicam 15 mg tablet RxNorm: 706066 TAKE ONE TABLET BY MOUTH ONE TIME A DAY 06/22/2015 11/10/2015 In active Singulair 10 mg tablet RxNorm: 947076 TAKE ONE TABLET BY MOUTH EVERY DAY 05/18/2015 07/16/2016 In active Micardis 80 mg tablet RxNorm: 341006 TAKE ONE TABLET BY MOUTH DAILY 02/22/2015 05/04/2015 In active gabapentin 600 mg ta blet RxNorm: 443612 1 Tablet(s) PO HS as needed 01/15/2015 01/09/2016 Inactive [SAVINGS FOR NON-COVERED DRUGS -- BIN:00 3585, PCN: ASPROD1, Group: [id number], ID# [id number], Questions: . THIS IS NOT INSURANCE.] diltiazem ER 180 mg capsule,extended release RxNorm: 106783 TAKE ONE CAPSULE BY M OUTH ONCE A DAY 01/07/2015 09/26/2015 Inactive meloxicam 15 mg tablet RxNorm: 769469 TAKE ONE TABLET BY MOUTH ONE TIME A DAY 11/09/2014 05/07/2015 In active gabapentin 600 mg ta blet RxNorm: 394848 1 Tablet(s) PO HS as needed 10/13/2014 01/14/2015 Inactive [SAVINGS FOR UNINSURED PATIENTS -- BIN:0 34051, PCN: ASPROD1, Group: [id number], ID# [id number], Process claim through [employer], for questions: . THIS IS NOT INSURANCE.] omeprazole 20 mg tab let,delayed release RxNorm: 927750 1 Tablet(s) PO daily 10/13/2014 11/11/2014 In active Synthroid 50 mcg tablet RxNorm: 838592 TAKE ONE TABLET BY MOUTH EVERY DAY 10/12/2014 01/09/2015 In active Synthroid 50 mcg tablet RxNorm: 696840 Tablet(s) TAKE ONE TABLET BY MOUTH EVERY DAY 10/12/2014 10/11/2014 Inactive [SAVINGS FOR UNINSURED PATIENTS -- BIN:0 47089, PCN: ASPROD1, Group: [id number], ID# [id number], Process claim through [employer], for questions: . THIS IS NOT INSURANCE.] Lasix 40 mg tablet RxNorm: 676789 Tablet(s) PO TAKE ONE TABLET BY MOUTH TW ICE A DAY FOR 3 DAYS, THEN RESUME ONE DAILY EXCEPT ON WEDNESDAYS AND FRIDAYS TAKE ONE TWICE DAILY 09/22/2014 05/28/2018 Inactive [SAVINGS FOR UNINSURED ARTURO ENTS -- BIN:503822, PCN: ASPROD1, Group: [id number], ID# [id number], Process claim through [employer], for questions: . THIS IS NOT INSURANCE.] Lasix 40 mg tablet RxNorm: 207011 TAKE ONE TABLET BY MOUTH EVERY DAY 09/22/2014 10/18/2015 In active Crestor 10 mg tablet RxNorm: 777896 1 Tablet(s) PO Sun08/28/2014 04/24/2015 Inactive [SAVINGS FOR UNINSURED PATIENTS -- BIN:0 51646, PCN: ASPROD1, Group: [id number], ID# [id number], Process claim through [employer], for questions: . THIS IS NOT INSURANCE.] Crestor 10 mg tablet RxNorm: 069594 1 Tablet(s) PO Sun08/28/2014 08/27/2014 Inactive [SAVINGS FOR UNINSURED PATIENTS -- BIN:0 48831, PCN: ASPROD1, Group: [id number], ID# [id number], Process claim through [employer], for questions: . THIS IS NOT INSURANCE.] Micardis 80 mg tablet RxNorm: 605018 TAKE ONE TABLET BY MOUTH EVERY DAY 08/24/2014 12/21/2014 In active Zithromax Z-Hebert 250 mg tablet RxNorm: 945578 Tablet(s) PO UD 08/14/2014 08/18/2014 Inactive 2 tabs day 1, 1 tabs days 2-5 Anusol-HC 25 mg supp ository RxNorm: 1792417 INSERT 1 RECTALLY DA GUSTAVO NEEDED 07/13/2014 10/10/2014 In active Klor-Con 10 mEq tabl et,extended release RxNorm: 381417 TAKE ONE TABLET BY [facility] TWICE A DAY 06/18/2014 12/14/2014 Inactive Lomotil 2.5 mg-0.025 mg tablet RxNorm: 2678432 1 Tablet(s) PO PRN a fter each loose stool max 8 per day 06/15/2014 10/12/2014 Inactive one after each loose bm juarez it 8 per day albuterol sulfate HF A 90 mcg/actuation aerosol inhaler RxNorm: 2632649 1 or2 Puff(s) INH Q4 PRN as needed 05/11/2014 05/10/2014 Inactive albuterol sulfate HF A 90 mcg/actuation aerosol inhaler RxNorm: 4477925 1 or2 Puff(s) INH Q4 PRN as needed 05/11/2014 01/03/2017 Inactive Premarin 0.625 mg/gr am vaginal cream RxNorm: 004329 1/2 Gram(s) VAG every other day 05/11/2014 12/06/2014 In active Premarin 0.625 mg/gr am vaginal cream RxNorm: 725038 1/2 Gram(s) VAG every other day 05/11/2014 05/10/2014 In active cefdinir 300 mg capsule RxNorm: 331182 1 Capsule(s) PO BID 05/07/2014 05/16/2014 Inactive Rocephin 500 mg solu tion for injection RxNorm: 752776 1 Milliliter(s) Inj 05/07/2014 05/07/2014 In active Singulair 10 mg tablet RxNorm: 571765 TAKE ONE TABLET BY MOUTH EVERY DAY 04/30/2014 10/12/2014 In active meloxicam 15 mg tablet RxNorm: 354956 1 Tablet(s) PO daily 04/16/2014 11/08/2014 Inactive Crestor 10 mg tablet RxNorm: 873221 1 Tablet(s) PO Sun TAKE ONE TAB LET BY MOUTH EVERY DAY 04/16/2014 08/27/2014 Inactive Synthroid 50 mcg tablet RxNorm: 424208 TAKE ONE TABLET BY MOUTH EVERY DAY 04/02/2014 09/28/2014 In active diltiazem ER 180 mg capsule,extended release RxNorm: 081787 1 Capsule(s) PO daily 01/05/2014 12/30/2014 In active Pennsaid 1.5 % topic al drops RxNorm: 478631 Drop(s) TOP APPLY 15 - 20 DROPS TOPICALLY FOUR TIMES A DAY 12/29/2013 01/17/2016 Inactive Rocephin 500 mg solu tion for injection RxNorm: 125059 Inj 12/2612/26/2013 Inactive Kenalog 40 mg/mL heaven pension for injection RxNorm: 0207606 Milliliter(s) Inj 12/26/2013 12/26/2013 In active Micardis 80 mg tablet RxNorm: 522756 Tablet(s) PO TAKE ONE TABLET BY MOUTH 12/15/2013 08/23/2014 Inactive nystatin 100,000 uni t/mL oral suspension RxNorm: 142960 4 Unit(s) PO QID swis h and swallow 11/12/2013 12/09/2013 Inactive Kenalog 40 mg/mL heaven pension for injection RxNorm: 0738992 Milliliter(s) Inj 11/12/2013 11/12/2013 In active Lasix 40 mg tablet RxNorm: 938869 Tablet(s) PO TAKE ONE TABLET BY MOUTH TW ICE A DAY FOR 3 DAYS, THEN RESUME ONE DAILY EXCEPT ON WEDNESDAYS AND FRIDAYS TAKE ONE TWICE DAILY 10/30/2013 09/21/2014 Inactive Lasix 40 mg tablet RxNorm: 183283 1 Tablet(s) PO daily 10/30/2013 10/29/2013 Inactive Rocephin 500 mg solu tion for injection RxNorm: 992967 1 Milliliter(s) Inj 10/09/2013 10/09/2013 In active metoprolol succinate ER 25 mg tablet,extended release 24 hr RxNorm: 917317 Tablet(s) PO TAKE ONE TABLET BY MOUTH EVERY DAY 10/02/2013 01/06/2014 Inactive metoprolol succinate ER 25 mg tablet,extended release 24 hr RxNorm: 095025 Tablet(s) PO TAKE ONE TABLET BY MOUTH EVERY DAY 08/04/2013 10/01/2013 Inactive Synthroid 50 mcg tablet RxNorm: 375167 Tablet(s) PO TAKE ONE TABLET BY MOUTH 07/14/2013 04/01/2014 Inactive gabapentin 600 mg ta blet RxNorm: 258949 1 Tablet(s) PO Q8 PRN 06/11/2013 06/11/2013 Inactive gabapentin 600 mg ta blet RxNorm: 108234 1 Tablet(s) PO Q8 PRN 06/11/2013 03/07/2014 Inactive Neurontin 600 mg tablet RxNorm: 556328 1 Tablet(s) PO Q8 PRN 06/10/2013 06/11/2013 Inactive Anusol-HC 25 mg supp ository RxNorm: 7152130 Suppository RTL INSE RT 1 RECTALLY DAILY NEEDED 04/24/2013 07/12/2014 Inactive metoprolol succinate ER 25 mg tablet,extended release 24 hr RxNorm: 464629 1 Tablet(s) PO daily 04/21/2013 08/03/2013 Inactive Premarin 0.625 mg/gr am Vaginal Cream RxNorm: 593296 1/2 Gram(s) VAG every other day 04/03/2013 10/29/2013 In active Klor-Con 10 mEq tabl et,extended release RxNorm: 506443 1 Tablet(s) PO daily 03/26/2013 03/20/2014 In active Klor-Con 10 mEq tabl et,extended release RxNorm: 006817 1 Tablet(s) PO BID 03/24/2013 03/23/2013 In active Klor-Con 10 mEq tabl et,extended release RxNorm: 766288 1 Tablet(s) PO BID 03/24/2013 03/25/2013 In active Klor-Con 10 mEq tabl et,extended release RxNorm: 781130 1 Tablet(s) PO BID 03/24/2013 03/23/2013 In active Augmentin 875 mg-125 mg tablet RxNorm: 466543 1 Tablet(s) PO BID 03/12/2013 03/18/2013 Inactive Augmentin 875 mg-125 mg tablet RxNorm: 478797 1 Tablet(s) PO BID 03/12/2013 03/11/2013 Inactive ciprofloxacin 500 mg tablet RxNorm: 413660 1 Tablet(s) PO BID 03/11/2013 03/17/2013 Inactive ciprofloxacin 500 mg tablet RxNorm: 432262 1 Tablet(s) PO BID 03/11/2013 03/10/2013 Inactive Crestor 10 mg tablet RxNorm: 373021 1 Tablet(s) PO daily 02/10/2013 02/09/2013 Inactive Crestor 10 mg tablet RxNorm: 066410 Tablet(s) PO TAKE ONE TABLET BY MOUTH EV DEANNA DAY 02/10/2013 04/15/2014 Inactive Singulair 10 mg tablet RxNorm: 617536 Tablet(s) PO TAKE ONE TABLET BY MOUTH EV DEANNA DAY 02/04/2013 04/29/2014 Inactive Kenalog 40 mg/mL Heaven p for Injection RxNorm: 3343957 1 Milliliter(s) Inj 11/21/2012 11/21/2012 In active Pennsaid 1.5 % topic al drops RxNorm: 147240 15-20 Drop(s) TOP QID 10/28/2012 11/21/2013 Inactive Micardis 80 mg tablet RxNorm: 128807 1 Tablet(s) PO daily 10/28/2012 10/22/2013 Inactive put this on file please, quantitiy incre ase Pennsaid 1.5 % Topic al Drops RxNorm: 089899 15-20 Drop(s) TOP QID 10/28/2012 10/27/2012 Inactive diltiazem ER 180 mg capsule,extended release RxNorm: 132067 1 Capsule(s) PO daily 10/14/2012 10/08/2013 In active Pyridium 200 mg tablet RxNorm: 5843197 1 Tablet(s) PO Q8 PRN 09/11/2012 10/12/2014 Inactive Flagyl 500 mg tablet RxNorm: 510798 1 Tablet(s) PO TID 09/04/2012 09/10/2012 Inactive Macrobid 100 mg capsule RxNorm: 5656271 1 Capsule(s) PO BID 09/03/2012 09/02/2012 Inactive Macrobid 100 mg capsule RxNorm: 1571221 1 Capsule(s) PO BID 09/03/2012 09/09/2012 Inactive sulfamethoxazole-tri methoprim 800 mg-160 mg tablet RxNorm: 432728 1 Tablet(s) PO BID 08/05/2012 08/14/2012 Inactive Lasix 40 mg tablet RxNorm: 948204 1 Tablet(s) PO BID pt is taking extra la six x 3 days, then every sunday and sunday take two lasix pills. 07/15/2012 07/09/2013 Inactive Synthroid 50 mcg tablet RxNorm: 230360 1 Tablet(s) PO daily 07/15/2012 07/09/2013 Inactive do not substitute the generic levothyrox ine for the synthroid brand name.....she needs brand name synthroid. Klor-Con 10 mEq tabl et,extended release RxNorm: 482469 1 Tablet(s) PO BID 07/15/2012 03/23/2013 In active Singulair 10 mg tablet RxNorm: 307221 1 Tablet(s) PO daily 06/12/2012 02/03/2013 Inactive Lexapro 10 mg tablet RxNorm: 378224 1/2 Tablet(s) PO daily 05/10/2012 06/03/2013 Inactive ProAir HFA 90 mcg/ac tuation Aerosol Inhaler RxNorm: 854839 2 INH Q6 PRN 04/23/2012 01/17/2016 In active Lexapro 10 mg tablet RxNorm: 807954 1/2 Tablet(s) PO daily 04/19/2012 05/09/2012 Inactive metoprolol succinate ER 50 mg tablet,extended release 24 hr RxNorm: 004447 1 Tablet(s) PO daily 04/09/2012 04/09/2012 Inactive Klor-Con 10 10 mEq t ablet,extended release RxNorm: 330435 1 Tablet(s) PO daily 04/01/2012 07/14/2012 In active metoprolol succinate ER 50 mg tablet,extended release 24 hr RxNorm: 350400 1/2 Tablet(s) PO BID 03/11/2012 04/08/2012 Inactive clonidine 0.1 mg Tab RxNorm: 093051 1 Tablet(s) PO BID 02/19/2012 03/12/2012 Inactive clonidine 0.1 mg Tab RxNorm: 324657 1 Tablet(s) PO BID 02/19/2012 02/18/2012 Inactive Micardis 80 mg Tab RxNorm: 074006 1 Tablet(s) PO daily 02/14/2012 02/13/2012 Inactive Micardis 80 mg tablet RxNorm: 416634 1 Tablet(s) PO daily 02/14/2012 10/27/2012 Inactive Synthroid 50 mcg tablet RxNorm: 417005 1 Tablet(s) PO daily 02/12/2012 07/14/2012 Inactive Tekturna 300 mg Tab RxNorm: 5470266 1 Tablet(s) PO daily 02/12/2012 03/12/2012 Inactive Lasix 40 mg Tab RxNorm: 248314 1 Tablet(s) PO daily 12/18/2011 12/17/2011 Inactive Lasix 40 mg tablet RxNorm: 855040 1 Tablet(s) PO daily 12/18/2011 07/14/2012 Inactive Anusol-HC 25 mg Supp ository RxNorm: 5817656 1 Suppository RTL QD AY PRN 12/04/2011 04/19/2012 In active lactobacillus acidop hilus Cap RxNorm: 1 Capsule(s) PO BID 11/21/2011 11/20/2011 Inactive lactobacillus acidop hilus Cap RxNorm: 1 Capsule(s) PO BID 11/21/2011 11/20/2011 Inactive Cipro 500 mg Tab RxNorm: 601061 1 Tablet(s) PO BID 11/21/2011 03/12/2012 Inactive lactobacillus acidop hilus Cap RxNorm: 1 Capsule(s) PO BID 11/21/2011 11/27/2011 Inactive lactobacillus acidop hilus Cap RxNorm: 1 Capsule(s) PO BID 11/21/2011 11/20/2011 Inactive Cipro 500 mg Tab RxNorm: 868735 1 Tablet(s) PO BID 11/21/2011 11/20/2011 Inactive Lexapro 10 mg Tab RxNorm: 144118 1 Tablet(s) PO daily 11/13/2011 11/12/2011 Inactive Lexapro 10 mg tablet RxNorm: 636488 1 Tablet(s) PO daily 11/13/2011 04/18/2012 Inactive amlodipine 10 mg Tab RxNorm: 518053 1 Tablet(s) PO daily 10/09/2011 12/03/2011 Inactive amlodipine 5 mg Tab RxNorm: 473939 1 Tablet(s) PO daily 09/20/2011 12/04/2011 Inactive Rocephin 500 mg Solu tion for Injection RxNorm: 3760461 Inj 11/201109/20/2011 Inactive metoprolol succinate ER 25 mg 24 hr Tab RxNorm: 513947 1 Tablet(s) PO QHS 08/30/2011 09/20/2011 In active Ambien 10 mg Tab RxNorm: 884445 1 Tablet(s) PO HS PRN 08/30/2011 04/19/2012 Inactive Augmentin 875 mg-125 mg Tab RxNorm: 970482 1 Tablet(s) PO BID 08/25/2011 09/20/2011 Inactive Augmentin 875 mg-125 mg Tab RxNorm: 687005 1 Tablet(s) PO BID 08/25/2011 08/24/2011 Inactive Rocephin 500 mg Solu tion for Injection RxNorm: 9056534 Inj 07/2808/23/2011 Inactive Levaquin 500 mg Tab RxNorm: 983827 1 Tablet(s) PO daily 08/23/2011 08/30/2011 Inactive chlordiazepoxide-cli dinium 5 mg-2.5 mg Cap RxNorm: 220604 1 Capsule(s) PO BID 07/10/2011 04/19/2012 In active q 12 hours prn metoprolol succinate ER 100 mg 24 hr Tab RxNorm: 242871 1 Tablet(s) PO daily 05/29/2011 03/12/2012 In active Synthroid 50 mcg Tab RxNorm: 776519 1 Tablet(s) PO daily 05/15/2011 08/12/2011 Inactive Ambien CR 12.5 mg Tab RxNorm: 981339 1 Tablet(s) PO HS PRN 05/09/2011 08/30/2011 Inactive Ambien 10 mg Tab RxNorm: 536150 1 Tablet(s) PO QHS 05/09/2011 06/07/2011 Inactive Nexium 40 mg Cap RxNorm: 780093 1 Capsule(s) PO daily 05/04/2011 03/12/2012 Inactive the patient had tried pepcid, otc priolosec, RX omperazole, failed them all Bactrim DS 800 mg-16 0 mg Tab RxNorm: 640790 1 Tablet(s) PO BID 04/19/2011 08/30/2011 Inactive triamcinolone aceton margie 40 mg/mL Susp for Injection RxNorm: 8027846 1 Milliliter(s) Inj UD 04/19/2011 04/19/2011 Inactive aspirin 81 mg Tab, D elayed Release RxNorm: 675154 1 Tablet(s) PO daily No Start Date Active 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 Device RxNorm: 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, 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 No Start Date Active Cymbalta 30 mg Cap RxNorm: 123229 1 Capsule(s) PO daily No Start Date 03/12/2012 Inactive Nexium 40 mg Cap RxNorm: 607086 Capsule(s) PO No Start Date 05/03/2011 Inactive Benadryl 25 mg capsule RxNorm: 2372722 1 Capsule(s) PO QHS No Start Date 01/03/2017 Inactive Klor-Con 10 10 mEq t ablet,extended release RxNorm: 311450 1 Tablet(s) PO daily No Start Date 03/31/2012 Inactive Metamucil Oral RxNorm: Oral No Start Date 10/12/2014 Inactive amlodipine 10 mg Tab RxNorm: 401273 1 Tablet(s) PO daily No Start Date 10/08/2011 Inactive Norvasc 5 mg tablet RxNorm: 830678 1 Tablet(s) PO daily No Start Date 10/12/2014 Inactive Lasix 40 mg Tab RxNorm: 974126 1 Tablet(s) PO daily No Start Date 12/17/2011 Inactive diltiazem ER (XR/XT) 240 mg capsule,extended release,controlled RxNorm: 711311 1 Capsule(s) PO daily No Start Date 04/22/2012 Inactive Centrum Silver Ultra Women's oral RxNorm: oral No Start D ate 04/24/2018 Inactive Synthroid 50 mcg Tab RxNorm: 940887 1 Tablet(s) PO daily No Start Date 05/14/2011 Inactive Flagyl 500 mg tablet RxNorm: 589656 1 Tablet(s) PO No Start Date 09/03/2012 Inactive one after each loose bm limit 8 per day Boniva 150 mg Tab RxNorm: 521388 1 Tablet(s) PO UD No Start Date 08/30/2011 Inactive monthly Singulair 10 mg tablet RxNorm: 755135 1 Tablet(s) PO daily No Start Date 06/11/2012 Inactive folic acid Oral RxNorm: Oral No Start Date 03/12/2012 Inactive potassium chloride E R 10 mEq tablet,extended release RxNorm: 571209 1 Tablet(s) PO daily No Start Date 01/03/2017 Inactive Probiotic & Acidophi jerilyn oral RxNorm: oral No Start D ate 04/24/2018 Inactive Librium 10 mg Cap RxNorm: 300779 Capsule(s) PO UD No Start Date 03/12/2012 Inactive q 12 hours prn Crestor 10 mg tablet RxNorm: 990084 1 Tablet(s) PO daily No Start Date 02/09/2013 Inactive multivitamin Cap RxNorm: 1 Capsule(s) PO daily No Start Date 01/17/2016 Inactive metoprolol succinate ER 100 mg 24 hr Tab RxNorm: 141809 1 Tablet(s) PO daily No Start Date 05/28/2011 Inactive Zithromax Z-Hebert 250 mg tablet RxNorm: 658769 Tablet(s) PO UD No Start Date 12/22/2015 Inactive diltiazem ER 180 mg capsule,extended release RxNorm: 709400 1 Capsule(s) PO daily No Start Date 10/13/2012 Inactive ProctoCream-HC 2.5 % rectal cream with applicator RxNorm: 012793 APPLY TO AFFECTED AREAS DIRECTED RTL No Start Date 09/30/2018 Inactive Tekturna 300 mg Tab RxNorm: 9995468 1 Tablet(s) PO daily samples No Start Date 02/11/2012 Inactive Xanax 0.25 mg tablet RxNorm: 588485 1-2 Tablet(s) PO QHS as needed insomnia No Start Date 07/24/2017 Inactive Fish Oil 1,000 mg Cap RxNorm: 1 Capsule(s) PO daily No Start Date 04/24/2018 Inactive ProAir HFA 90 mcg/ac tuation Aerosol Inhaler RxNorm: 5530847 2 INH Q6 PRN No Start Date 04/22/2012 Inactive chlordiazepoxide-cli dinium 5 mg-2.5 mg Cap RxNorm: 200588 1 Capsule(s) PO PRN No Start Date 07/09/2011 Inactive q 12 hours prn Butrans 5 mcg/hour T ransderm Patch RxNorm: 288856 1 Patch TD weekly No Start Date 05/26/2012 Inactive Lactobacillus acidop hilus tablet RxNorm: 4 Tablet(s) PO daily No Start Date 01/03/2017 Inactive Librax (with clidini um) 5 mg-2.5 mg capsule RxNorm: 706792 1 Capsule(s) PO BID No Start Date 04/18/2012 Inactive Nexium 40 mg capsule ,delayed release RxNorm: 487270 Capsule(s) PO PRN No Start Date 10/12/2014 Inactive Tylenol Extra Streng th 500 mg tablet RxNorm: 082846 1 Tablet(s) PO BID as needed for pain No Start Date 04/24/2018 Inactive Premarin 0.625 mg/gr am Vaginal Cream RxNorm: 697570 Gram(s) VAG No Start Date 03/12/2012 Inactive three times a week, small amt to vaginal tissuesample given metoprolol succinate ER 50 mg tablet,extended release 24 hr RxNorm: 950263 1 Tablet(s) PO daily No Start Date 03/10/2012 Inactive Zithromax Z-Hebert 250 mg tablet RxNorm: 532204 Tablet(s) PO UD No Start Date 08/13/2014 Inactive albuterol sulfate HF A 90 mcg/actuation aerosol inhaler RxNorm: 4531513 1 or2 Puff(s) INH Q4 PRN No Start Date 05/10/2014 Inactive Xanax 0.25 mg Tab RxNorm: 630249 1/2-1 Tablet(s) PO Q8 PRN No Start Date 03/12/2012 Inactive metoprolol succinate ER 25 mg tablet,extended release 24 hr RxNorm: 395690 1 Tablet(s) PO daily No Start Date 04/20/2013 Inactive Zithromax Z-Hebert 250 mg tablet RxNorm: 396280 1 Tablet(s) PO UD No Start Date 08/10/2016 Inactive Z PACK DIRECTED calcium carbonate 60 0 mg (1,500 mg) Tab RxNorm: 577497 1 Tablet(s) PO BID No Start Date 01/03/2017 Inactive albuterol sulfate HF A 90 mcg/Actuation Aerosol Inhaler RxNorm: 0279406 1-2 Puff(s) INH Q4 PRN No Start Date 03/11/2012 Inactive Vitamin D3 2,000 uni t capsule RxNorm: 168761 1 Capsule(s) PO daily No Start Date 10/12/2014 Inactive Colace 100 mg Cap RxNorm: 5415840 1 Capsule(s) PO BID No Start Date 01/17/2016 Inactive Neurontin 600 mg tablet RxNorm: 269981 1 Tablet(s) PO Q8 PRN No Start Date 06/09/2013 Inactive Lomotil 2.5 mg-0.025 mg tablet RxNorm: 0926476 1 Tablet(s) PO No Start Date 06/14/2014 Inactive one after each loose bm limit 8 per day Micardis 80 mg Tab RxNorm: 010631 1 Tablet(s) PO daily No Start Date 12/03/2011 Inactive Pyridium 200 mg tablet RxNorm: 9426557 1 Tablet(s) PO Q8 PRN No Start Date 09/10/2012 Inactive Medication Administered Medication Codes Instruc tions Start Date Status Kenalog 40 mg/mL suspension for injection RxNorm: 2932506 1Milliliter 08/09/2017 N o longer Active ceftriaxone 500 mg solution for injection RxNorm: 5153391 08/09/2017 No longer A ctive Kenalog 40 mg/mL suspension for injection RxNorm: 1306792 1Milliliter 01/04/2017 N o longer Active Kenalog 40 mg/mL suspension for injection RxNorm: 9823046 Milliliter 08/23/2016 No longer Active Rocephin 500 mg solution for injection RxNorm: 742780 1Milliliter 05/07/2014 N o longer Active Kenalog 40 mg/mL suspension for injection RxNorm: 2711199 Milliliter 12/26/2013 No longer Active Rocephin 500 mg solution for injection RxNorm: 785482 12/26/2013 No longer A ctive Kenalog 40 mg/mL suspension for injection RxNorm: 8237797 Milliliter 11/12/2013 No longer Active Rocephin 500 mg solution for injection RxNorm: 972026 1Milliliter 10/09/2013 N o longer Active Kenalog 40 mg/mL Susp for Injection RxNorm: 0800084 1Milliliter 11/21/2012 N o longer Active Rocephin 500 mg Solution for Injection RxNorm: 1006425 08/23/2011 No longer A ctive triamcinolone acetonide 40 mg/mL Susp for Injection RxNorm: 3029220 1MilliliterUD 04/19/2011 No longer Active Immunizations Vaccine [...] 11/12/2013 Laboratory exam ordered as part of [facility] general medical examination ICD-9: V72.62 11/12/2013 [...] Item Item Code Result Date Comp Metabolic Zqg761 NA 139 mEq/L 05/29/2018 Comp Metabolic Juy466 K 4.1 mEq/L 05/29/2018 Comp Metabolic Vlf708 CL 99 mEq/L 05/29/2018 Comp Metabolic Fme883 CO2 30.0 mEq/L 05/29/2018 Comp Metabolic Cqh047 AN ION GAP 14 05/29/2018 Comp Metabolic Mdh252 GL UCOSE 107 mg/dL 05/29/2018 Comp Metabolic Iqw709 Cr eat 0.6 mg/dL 05/29/2018 Comp Metabolic Bmo928 eG FR 95 ml/min/1.73m2 05/29 Comp Metabolic Hlf227 BUN 15 mg/dL 05/29/2018 Comp Metabolic Kds078 B/ C Ratio 23.4 Ratio 05/29/2018 Comp Metabolic Pux538 CA LCIUM 9.4 mg/dL 05/29/2018 Comp Metabolic Sqp444 AL K PHOS 52 U/L 05/29/2018 Comp Metabolic Bjl321 T(SGOT) 16 U/L 05/29/2018 Comp Metabolic Jnf947 AL T(SGPT) 12 U/L 05/29/2018 Comp Metabolic Rwx176 BI LI T 1.1 mg/dL 05/29/2018 Comp Metabolic Tlt054 AL BUMIN 4.0 g/dL 05/29/2018 Comp Metabolic Slf882 TP RO 6.5 g/dL 05/29/2018 Comp Metabolic Xhe339 GL OB 2.5 g/dL 05/29/2018 Comp Metabolic Swn751 A/ G Ratio 1.6 Ratio 05/29/2018 Comp Metabolic Hfu415 Os mo 279 mOsmo 05/29/2018 Cbc With [...] 28.9 pg 05/29/2018 Cbc With Differential Ord2 [place]anan% 9.0 % 05/29/2018 Cbc With Differential Ord2 [...] 2.05 K/ul 05/29/2018 Cbc With Differential Ord2 [place] ABS# 0.7 K/ul 05/29/2018 Cbc With Differential Ord2 Eos ABS# 0.2 K/ul 05/29/2018 Cbc With Differential Ord2 Baso ABS# 0.0 K/ul 05/29/2018 Tsh Ord6 TSH (3rd IS) 2.05 uIU/mL 05/29/2018 Lipid Ord30 CHOL 191 mg/dL 05/29/2018 Lipid Ord30 HDL 68.0 mg/dl 05/29/2018 Lipid Ord30 TRIG 138 mg/dL 05/29/2018 Lipid Ord30 LDL 95 mg/dL 05/29/2018 Lipid Ord30 C/HDL 2.8 Ratio 05/29/2018 Free T4 Rra719 FREE T4 0.93 ng/dL 05/29/2018 Free T4 Qpg508 FREE T4 0.90 ng/dL 09/12/2017 Cbc With [...] 29.3 pg 09/12/2017 Cbc With Differential Ord2 [place]anan% 8.7 % 09/12/2017 Cbc With Differential Ord2 [...] 2.72 K/ul 09/12/2017 Cbc With Differential Ord2 [place] ABS# 1.2 K/ul 09/12/2017 Cbc With Differential Ord2 Eos ABS# 0.3 K/ul 09/12/2017 Cbc With Differential Ord2 Baso ABS# 0.1 K/ul 09/12/2017 Comp Metabolic Nzk748 NA 140 mEq/L 09/12/2017 Comp Metabolic Ban110 K 4.3 mEq/L 09/12/2017 Comp Metabolic Vhw514 CL 99 mEq/L 09/12/2017 Comp Metabolic Pww042 CO2 33.0 mEq/L 09/12/2017 Comp Metabolic Hkg039 AN ION GAP 12 09/12/2017 Comp Metabolic Ojv550 GL UCOSE 92 mg/dL 09/12/2017 Comp Metabolic Ozb979 Cr eat 0.7 mg/dL 09/12/2017 Comp Metabolic Zps077 eG FR 84 ml/min/1.73m2 09/12 Comp Metabolic Qsg481 BUN 18 mg/dL 09/12/2017 Comp Metabolic Srb643 B/ C Ratio 25.4 Ratio 09/12/2017 Comp Metabolic Oeu607 CA LCIUM 9.3 mg/dL 09/12/2017 Comp Metabolic Ytc617 AL K PHOS 64 U/L 09/12/2017 Comp Metabolic Vxv448 T(SGOT) 13 U/L 09/12/2017 Comp Metabolic Tes456 AL T(SGPT) 12 U/L 09/12/2017 Comp Metabolic Ksc740 BI LI T 0.7 mg/dL 09/12/2017 Comp Metabolic Val832 AL BUMIN 4.0 g/dL 09/12/2017 Comp Metabolic Xcz582 TP RO 6.3 g/dL 09/12/2017 Comp Metabolic Oya921 GL OB 2.3 g/dL 09/12/2017 Comp Metabolic Mvk303 A/ G Ratio 1.8 Ratio 09/12/2017 Comp Metabolic Yqa633 Os mo 281 mOsmo 09/12/2017 Lipid Ord30 [...] 28.8 pg 03/09/2016 Cbc With Differential Ord2 [place]anan% 8.5 % 03/09/2016 Cbc With Differential Ord2 [...] 2.38 K/ul 03/09/2016 Cbc With Differential Ord2 [place] ABS# 0.8 K/ul 03/09/2016 Cbc With Differential Ord2 Eos ABS# 0.2 K/ul 03/09/2016 Cbc With Differential Ord2 Baso ABS# 0.1 K/ul 03/09/2016 Comp Metabolic Rvg606 NA 138 mEq/L 03/09/2016 Comp Metabolic Jua359 K 4.5 mEq/L 03/09/2016 Comp Metabolic Wko430 CL 100 mEq/L 03/09/2016 Comp Metabolic Ecm063 CO2 33.0 mEq/L 03/09/2016 Comp Metabolic Ned921 AN ION GAP 10 03/09/2016 Comp Metabolic Svk449 GL UCOSE 94 mg/dL 03/09/2016 Comp Metabolic Ibh166 Cr eat 0.6 mg/dL 03/09/2016 Comp Metabolic Ynn461 eG FR 106 ml/min/1.73m2 02/24 Comp Metabolic Iks300 BUN 10 mg/dL 03/09/2016 Comp Metabolic Kyl904 B/ C Ratio 17.2 Ratio 03/09/2016 Comp Metabolic Dpq907 CA LCIUM 9.2 mg/dL 03/09/2016 Comp Metabolic Wuj196 AL K PHOS 64 U/L 03/09/2016 Comp Metabolic Vjt014 T(SGOT) 20 U/L 03/09/2016 Comp Metabolic Vgv079 AL T(SGPT) 11 U/L 03/09/2016 Comp Metabolic Srm967 BI LI T 0.9 mg/dL 03/09/2016 Comp Metabolic Eic552 AL BUMIN 4.0 g/dL 03/09/2016 Comp Metabolic Goa488 TP RO 6.1 g/dL 03/09/2016 Comp Metabolic Zra389 GL OB 2.1 g/dL 03/09/2016 Comp Metabolic Hiq329 A/ G Ratio 1.9 Ratio 03/09/2016 Comp Metabolic Msl045 Os mo 274 mOsmo 03/09/2016 Free T4 Ove251 FREE T4 0.90 ng/dL 03/09/2016 Lipid Ord30 [...] hTSH II 3.25 uIU/mL 09/07/2015 Free T4 Tqz860 FREE T4 0.79 ng/dL 09/07/2015 Comp Metabolic Kbo067 NA 137 mEq/L 09/07/2015 Comp Metabolic Zhr495 K 4.0 mEq/L 09/07/2015 Comp Metabolic Iud159 CL 98 mEq/L 09/07/2015 Comp Metabolic Ofl823 CO2 30.0 mEq/L 09/07/2015 Comp Metabolic Efy267 AN ION GAP 13 09/07/2015 Comp Metabolic Ial872 GL UCOSE 101 mg/dL 09/07/2015 Comp Metabolic Bcy787 Cr eat 0.6 mg/dL 09/07/2015 Comp Metabolic Kqw259 eG FR 111 ml/min/1.73m2 08/27 Comp Metabolic Uij712 BUN 16 mg/dL 09/07/2015 Comp Metabolic Ags517 B/ C Ratio 28.6 Ratio 09/07/2015 Comp Metabolic Ofp928 CA LCIUM 9.4 mg/dL 09/07/2015 Comp Metabolic Yip535 AL K PHOS 68 U/L 09/07/2015 Comp Metabolic Ytt487 T(SGOT) 16 U/L 09/07/2015 Comp Metabolic Hyk221 AL T(SGPT) 12 U/L 09/07/2015 Comp Metabolic Qtn993 BI LI T 0.9 mg/dL 09/07/2015 Comp Metabolic Bql343 AL BUMIN 4.1 g/dL 09/07/2015 Comp Metabolic Zro796 TP RO 6.5 g/dL 09/07/2015 Comp Metabolic Owv894 GL OB 2.4 g/dL 09/07/2015 Comp Metabolic Zbf628 A/ G Ratio 1.7 Ratio 09/07/2015 Comp Metabolic Zis498 Os mo 275 mOsmo 09/07/2015 Cbc With [...] Differential Ord2 RDW 14.4 % 09/07/2015 TSH 2326252 TSH 0.920 uIU/ML 08/28/2014 CBC 9394185 WBC 12.5 10e9/L 08/28/2014 CBC 9089061 RBC 3.44 10e12/L 08/28/2014 CBC 8574325 HGB 10.3 g/dL 08/28/2014 CBC 0188090 HCT DET 33.9 % 08/28/2014 CBC 2528237 MCV 98.5 fL 08/28/2014 CBC 2857150 MCH 29.9 pg 08/28/2014 CBC 9841629 MCHC 30.4 g/dL 08/28/2014 CBC 0718786 PLT 412 10e9/L 08/28/2014 CBC 8907709 MPV 10.2 fL 08/28/2014 CBC 8455871 NNEKA % 68.5 % 08/28/2014 CBC 8798487 LY % 20.8 % 08/28/2014 CBC 6348459 MON % 9.9 % 08/28/2014 CBC 6467555 EOS % 0.6 % 08/28/2014 CBC 9795111 BASO % 0.2 % 08/28/2014 CBC 7947986 RDW 15.8 % 08/28/2014 CBC 0152199 ABS NNEKA 8.56 10e9/L 08/28/2014 CBC 8049144 ABS LYMPH 2.60 10e9/L 08/28/2014 CBC 2608480 ABS MONO 1.24 10e9/L 08/28/2014 CBC 9181103 ABS EOS 0.08 10e9/L 08/28/2014 CBC 8463580 ABS BASO 0.03 10e9/L 08/28/2014 CBC 6155991 RDW-SD 55.4 fL 08/28/2014 GFR CALC 3340461 GFR AA >60 ML/MIN 08/28/2014 GFR CALC 6304915 GFR NON -AA >60 ML/MIN 08/28/2014 LIPID GRP HDL TE ST 69 MG/DL 08/28/2014 LIPID GRP TRIG 158 MG/DL 08/28/2014 LIPID GRP TEST L DL 96 MG/DL 08/28/2014 LIPID GRP CHOL 197 MG/DL 08/28/2014 LIPID GRP RCHOL/ HDL 2.86 RATIO 08/28/2014 LIPID GRP 6377360 NON-HD L CH 128 MG/DL 08/28/2014 CHEM 14 8053032 AST 14 U/L 08/28/2014 CHEM 14 5033168 ALT 13 IU/L 08/28/2014 CHEM 14 6502390 BUN 15 MG/DL 08/28/2014 CHEM 14 1860065 ALBUMIN 4.2 GM/DL 08/28/2014 CHEM 14 6532911 CHLORIDE 98 MMOL/L 08/28/2014 CHEM 14 6663184 BILI TOT 1.2 MG/DL 08/28/2014 CHEM 14 2027763 ALK PHOS 68 U/L 08/28/2014 CHEM 14 2923152 SODIUM 137 MMOL/L 08/28/2014 CHEM 14 7978392 CREATINI NE 0.68 MG/DL 08/28/2014 CHEM 14 2925601 CALCIUM 9.1 MG/DL 08/28/2014 CHEM 14 2374275 POTASSIUM 3.7 MMOL/L 08/28/2014 CHEM 14 2773382 PROT TOT 6.2 GM/DL 08/28/2014 CHEM 14 4017613 GLUCOSE 91 MG/DL 08/28/2014 CHEM 14 9799110 BICARB 31 MMOL/L 08/28/2014 CHEM 14 0210166 ANION GAP 8 MEQ/L 08/28/2014 FREE T4 9165896 FREE T4 1.44 NG/DL 08/28/2014 LIPID GRP HDL TE ST 73 MG/DL 04/16/2014 LIPID GRP TRIG 131 MG/DL 04/16/2014 LIPID GRP TEST L DL 99 MG/DL 04/16/2014 LIPID GRP CHOL 198 MG/DL 04/16/2014 LIPID GRP RCHOL/ HDL 2.71 RATIO 04/16/2014 LIPID GRP NON-HD L CH 125 MG/DL 04/16/2014 CHEM 14 7578196 AST 17 U/L 04/14/2014 CHEM 14 7345385 ALT 17 IU/L 04/14/2014 CHEM 14 8981570 BUN 15 MG/DL 04/14/2014 CHEM 14 9879886 ALBUMIN 4.3 GM/DL 04/14/2014 CHEM 14 0886363 CHLORIDE 96 MMOL/L 04/14/2014 CHEM 14 5561415 BILI TOT 0.9 MG/DL 04/14/2014 CHEM 14 6645438 ALK PHOS 65 U/L 04/14/2014 CHEM 14 9779484 SODIUM 135 MMOL/L 04/14/2014 CHEM 14 4279627 CREATINI NE 0.69 MG/DL 04/14/2014 CHEM 14 0803733 CALCIUM 9.5 MG/DL 04/14/2014 CHEM 14 5711415 POTASSIUM 4.1 MMOL/L 04/14/2014 CHEM 14 8907060 PROT TOT 6.6 GM/DL 04/14/2014 CHEM 14 8735633 GLUCOSE 104 MG/DL 04/14/2014 CHEM 14 7883469 BICARB 34 MMOL/L 04/14/2014 CHEM 14 5011125 ANION GAP 5 MEQ/L 04/14/2014 A1C HPLC 8978603 A1C HPLC 18323-6 5.0 % 04/14/2014 TSH 8679812 TSH 2.140 uIU/ML 04/14/2014 FREE T4 8929892 FREE T4 1.56 NG/DL 04/14/2014 GFR CALC 7207378 GFR AA >60 ML/MIN 04/14/2014 GFR CALC 3877728 GFR NON -AA >60 ML/MIN 04/14/2014 CBC 9496927 WBC 12.8 10e9/L 04/14/2014 CBC 2246511 RBC 4.44 10e12/L 04/14/2014 CBC 9093366 HGB 13.2 g/dL 04/14/2014 CBC 3231033 HCT DET 41.4 % 04/14/2014 CBC 9552238 MCV 93.2 fL 04/14/2014 CBC 9445429 MCH 29.7 pg 04/14/2014 CBC 3506860 MCHC 31.9 g/dL 04/14/2014 CBC 2103252 PLT 383 10e9/L 04/14/2014 CBC 3888009 MPV 10.1 fL 04/14/2014 CBC 2241027 NNEKA % 65.5 % 04/14/2014 CBC 7102344 LY % 23.0 % 04/14/2014 CBC 4822857 MON % 9.9 % 04/14/2014 CBC 7113918 EOS % 1.3 % 04/14/2014 CBC 7376168 BASO % 0.3 % 04/14/2014 CBC 2999484 RDW 13.7 % 04/14/2014 CBC 3880282 ABS NNEKA 8.38 10e9/L 04/14/2014 CBC 9813589 ABS LYMPH 2.94 10e9/L 04/14/2014 CBC 9915723 ABS MONO 1.27 10e9/L 04/14/2014 CBC 4605773 ABS EOS 0.17 10e9/L 04/14/2014 CBC 4529544 ABS BASO 0.04 10e9/L 04/14/2014 CBC 8164859 RDW-SD 45.9 fL 04/14/2014 A1C HPLC 6385058 A1C HPLC 90122-3 4.9 % 11/13/2013 CHEM 14 6953435 AST 15 U/L 11/12/2013 CHEM 14 9608328 ALT 14 IU/L 11/12/2013 CHEM 14 6488956 BUN 14 MG/DL 11/12/2013 CHEM 14 3845935 ALBUMIN 4.3 GM/DL 11/12/2013 CHEM 14 9058205 CHLORIDE 101 MMOL/L 11/12/2013 CHEM 14 1744080 BILI TOT 0.9 MG/DL 11/12/2013 CHEM 14 1451997 ALK PHOS 67 U/L 11/12/2013 CHEM 14 2092510 SODIUM 139 MMOL/L 11/12/2013 CHEM 14 0644427 CREATINI NE 0.67 MG/DL 11/12/2013 CHEM 14 7574144 CALCIUM 9.5 MG/DL 11/12/2013 CHEM 14 7688719 POTASSIUM 4.1 MMOL/L 11/12/2013 CHEM 14 3793891 PROT TOT 6.5 GM/DL 11/12/2013 CHEM 14 2180175 GLUCOSE 102 MG/DL 11/12/2013 CHEM 14 0772595 BICARB 30 MMOL/L 11/12/2013 CHEM 14 8904514 ANION GAP 8 MEQ/L 11/12/2013 GFR CALC 7011747 GFR AA >60 ML/MIN 11/12/2013 GFR CALC 8362954 GFR NON -AA >60 ML/MIN 11/12/2013 TSH 9820398 TSH 2.445 uIU/ML 11/12/2013 FREE T4 5611913 FREE T4 1.09 NG/DL 11/12/2013 CBC 2072387 WBC 7.6 10e9/L 11/12/2013 CBC 1206786 RBC 4.42 10e12/L 11/12/2013 CBC 0257065 HGB 13.1 g/dL 11/12/2013 CBC 3698151 HCT DET 41.2 % 11/12/2013 CBC 8828106 MCV 93.2 fL 11/12/2013 CBC 7907647 MCH 29.6 pg 11/12/2013 CBC 9676898 MCHC 31.8 g/dL 11/12/2013 CBC 0719041 PLT 314 10e9/L 11/12/2013 CBC 7597970 MPV 10.4 fL 11/12/2013 CBC 6218017 NNEKA % 59.8 % 11/12/2013 CBC 1175327 LY % 28.1 % 11/12/2013 CBC 9030255 MON % 9.5 % 11/12/2013 CBC 8421247 EOS % 1.8 % 11/12/2013 CBC 9151317 BASO % 0.8 % 11/12/2013 CBC 1582946 RDW 13.8 % 11/12/2013 CBC 5530761 ABS NNEKA 4.54 10e9/L 11/12/2013 CBC 0830633 ABS LYMPH 2.14 10e9/L 11/12/2013 CBC 0929032 ABS MONO 0.72 10e9/L 11/12/2013 CBC 6539560 ABS EOS 0.14 10e9/L 11/12/2013 CBC 6094712 ABS BASO 0.06 10e9/L 11/12/2013 CBC 0440245 RDW-SD 46.0 fL 11/12/2013 LIPID GRP 5400261 HDL TE ST 66 MG/DL 11/12/2013 LIPID GRP TRIG 130 MG/DL 11/12/2013 LIPID GRP 2538618 TEST L DL 108 MG/DL 11/12/2013 LIPID GRP CHOL 200 MG/DL 11/12/2013 LIPID GRP RCHOL/ HDL 3.03 RATIO 11/12/2013 HS ENE ZOS 4349969 HS VA R ZOS IMMUNE 04/04/2013 A1C 3767709 A1C HPLC 23635-8 5.2 % 04/03/2013 GFR CALC 8010825 GFR AA >60 ML/MIN 03/31/2013 GFR CALC 6013720 GFR NON -AA >60 ML/MIN 03/31/2013 TSH 4467310 TSH 2.689 uIU/ML 03/31/2013 LIPID GRP HDL TE ST 63 MG/DL 03/31/2013 LIPID GRP TRIG 157 MG/DL 03/31/2013 LIPID GRP TEST L DL 98 MG/DL 03/31/2013 LIPID GRP CHOL 192 MG/DL 03/31/2013 LIPID GRP RCHOL/ HDL 3.05 RATIO 03/31/2013 FREE T4 9725900 FREE T4 1.19 NG/DL 03/31/2013 CHEM 14 5863485 AST 16 U/L 03/31/2013 CHEM 14 4678526 ALT 12 IU/L 03/31/2013 CHEM 14 7340516 BUN 17 MG/DL 03/31/2013 CHEM 14 4367668 ALBUMIN 4.5 GM/DL 03/31/2013 CHEM 14 2093741 CHLORIDE 98 MMOL/L 03/31/2013 CHEM 14 0240360 BILI TOT 0.7 MG/DL 03/31/2013 CHEM 14 3120056 ALK PHOS 53 U/L 03/31/2013 CHEM 14 2497715 SODIUM 137 MMOL/L 03/31/2013 CHEM 14 6329346 CREATINI NE 0.66 MG/DL 03/31/2013 CHEM 14 3673157 CALCIUM 9.6 MG/DL 03/31/2013 CHEM 14 2261250 POTASSIUM 4.2 MMOL/L 03/31/2013 CHEM 14 9888240 PROT TOT 6.7 GM/DL 03/31/2013 CHEM 14 5651304 GLUCOSE 101 MG/DL 03/31/2013 CHEM 14 2007838 BICARB 33 MMOL/L 03/31/2013 CHEM 14 7879465 ANION GAP 6 MEQ/L 03/31/2013 CBC 5666878 WBC 7.5 10e9/L 03/31/2013 CBC 1133052 RBC 4.39 10e12/L 03/31/2013 CBC 5817429 HGB 13.0 g/dL 03/31/2013 CBC 2838850 HCT DET 40.2 % 03/31/2013 CBC 7416842 MCV 91.6 fL 03/31/2013 CBC 9284321 MCH 29.6 pg 03/31/2013 CBC 7822088 MCHC 32.3 g/dL 03/31/2013 CBC 4991860 PLT 305 10e9/L 03/31/2013 CBC 6933353 MPV 10.4 fL 03/31/2013 CBC 4121132 NNEKA % 56.8 % 03/31/2013 CBC 1745078 LY % 30.3 % 03/31/2013 CBC 4619706 MON % 9.8 % 03/31/2013 CBC 3133989 EOS % 2.3 % 03/31/2013 CBC 0875562 BASO % 0.8 % 03/31/2013 CBC 7497715 RDW 13.2 % 03/31/2013 CBC 1254886 ABS NNEKA 4.26 10e9/L 03/31/2013 CBC 6175834 ABS LYMPH 2.27 10e9/L 03/31/2013 CBC 9379952 ABS MONO 0.74 10e9/L 03/31/2013 CBC 8557296 ABS EOS 0.17 10e9/L 03/31/2013 CBC 3456721 ABS BASO 0.06 10e9/L 03/31/2013 CBC 1258390 RDW-SD 43.2 fL 03/31/2013 LIPID GRP HDL TE ST 49 MG/DL 09/11/2012 LIPID GRP TRIG 134 MG/DL 09/11/2012 LIPID GRP TEST L DL 81 MG/DL 09/11/2012 LIPID GRP CHOL 157 MG/DL 09/11/2012 LIPID GRP RCHOL/ HDL 3.20 RATIO 09/11/2012 TSH 8210321 TSH 2.118 uIU/ML 09/11/2012 CBC 5839908 WBC 7.5 10e9/L 09/11/2012 CBC 5371847 RBC 3.99 10e12/L 09/11/2012 CBC 5089063 HGB 11.7 g/dL 09/11/2012 CBC 6108469 HCT DET 37.7 % 09/11/2012 CBC 2143500 MCV 94.5 fL 09/11/2012 CBC 3922053 MCH 29.3 pg 09/11/2012 CBC 6999829 MCHC 31.0 g/dL 09/11/2012 CBC 5793149 PLT 384 10e9/L 09/11/2012 CBC 6047825 MPV 11.0 fL 09/11/2012 CBC 9497269 NNEKA % 51.7 % 09/11/2012 CBC 7382558 LY % 35.2 % 09/11/2012 CBC 3828449 MON % 10.4 % 09/11/2012 CBC 1652752 EOS % 2.3 % 09/11/2012 CBC 5121703 BASO % 0.4 % 09/11/2012 CBC 0905926 RDW 14.2 % 09/11/2012 CBC 5310848 ABS NNEKA 3.88 10e9/L 09/11/2012 CBC 8319858 ABS LYMPH 2.64 10e9/L 09/11/2012 CBC 3725341 ABS MONO 0.78 10e9/L 09/11/2012 CBC 9406584 ABS EOS 0.17 10e9/L 09/11/2012 CBC 7926540 ABS BASO 0.03 10e9/L 09/11/2012 CBC 0250931 RDW-SD 47.1 fL 09/11/2012 CHEM 14 4327727 AST 16 U/L 09/11/2012 CHEM 14 0780630 ALT 15 IU/L 09/11/2012 CHEM 14 3022516 BUN 11 MG/DL 09/11/2012 CHEM 14 9382032 ALBUMIN 4.2 GM/DL 09/11/2012 CHEM 14 7998949 CHLORIDE 101 MMOL/L 09/11/2012 CHEM 14 0813823 BILI TOT 0.8 MG/DL 09/11/2012 CHEM 14 6477028 ALK PHOS 57 U/L 09/11/2012 CHEM 14 6731270 SODIUM 141 MMOL/L 09/11/2012 CHEM 14 7552761 CREATINI NE 0.62 MG/DL 09/11/2012 CHEM 14 6456873 CALCIUM 9.5 MG/DL 09/11/2012 CHEM 14 9093740 POTASSIUM 4.7 MMOL/L 09/11/2012 CHEM 14 7798010 PROT TOT 6.6 GM/DL 09/11/2012 CHEM 14 5603747 GLUCOSE 90 MG/DL 09/11/2012 CHEM 14 9370889 BICARB 32 MMOL/L 09/11/2012 CHEM 14 1874632 ANION GAP 8 MEQ/L 09/11/2012 A1C HPLC 2611732 A1C HPLC 00023-0 4.5 % 09/11/2012 GFR CALC 4819164 GFR AA >60 ML/MIN 09/11/2012 GFR CALC 0729938 GFR NON -AA >60 ML/MIN 09/11/2012 FREE T4 9680218 FREE T4 1.30 NG/DL 09/11/2012 BMP 4856543 GLUCOSE 93 MG/DL 04/16/2012 BMP 3551303 CREATININE 0.64 MG/DL 04/16/2012 BMP 9342783 BUN 12 MG/DL 04/16/2012 BMP 2870591 SODIUM 139 MMOL/L 04/16/2012 BMP 7397225 POTASSIUM 4.1 MMOL/L 04/16/2012 BMP 1585665 CHLORIDE 99 MMOL/L 04/16/2012 BMP 6697075 BICARB 32 MMOL/L 04/16/2012 BMP 3945415 ANION GAP 8 MEQ/L 04/16/2012 BMP 8068109 CALCIUM 9.8 MG/DL 04/16/2012 CBC 4140478 WBC 8.5 10e9/L 04/16/2012 CBC 8959106 RBC 3.98 10e12/L 04/16/2012 CBC 0529823 HGB 11.5 g/dL 04/16/2012 CBC 2010440 HCT DET 36.7 % 04/16/2012 CBC 6349685 MCV 92.2 fL 04/16/2012 CBC 4016314 MCH 28.9 pg 04/16/2012 CBC 7740239 MCHC 31.3 g/dL 04/16/2012 CBC 1688232 PLT 321 10e9/L 04/16/2012 CBC 4882398 MPV 10.2 fL 04/16/2012 CBC 3597458 NNEKA % 64.3 % 04/16/2012 CBC 5047801 LY % 24.3 % 04/16/2012 CBC 9687145 MON % 9.0 % 04/16/2012 CBC 1759559 EOS % 1.9 % 04/16/2012 CBC 5144974 BASO % 0.5 % 04/16/2012 CBC 7918842 RDW 13.7 % 04/16/2012 CBC 7316942 ABS NNEKA 5.47 10e9/L 04/16/2012 CBC 2268893 ABS LYMPH 2.07 10e9/L 04/16/2012 CBC 6795043 ABS MONO 0.77 10e9/L 04/16/2012 CBC 9066703 ABS EOS 0.16 10e9/L 04/16/2012 CBC 5057103 ABS BASO 0.04 10e9/L 04/16/2012 CBC 0664709 RDW-SD 44.6 fL 04/16/2012 GFR CALC 5111813 GFR AA >60 ML/MIN 04/16/2012 GFR CALC 8523851 GFR NON -AA >60 ML/MIN 04/16/2012 URINALYSIS NONAUTO W/O SCOPE 41318 Specific [place] 1.015 DateTime(Free Text in Apr[employer]) URINALYSIS NONAUTO W/O SCOPE 89332 PH 6.0 DateTime(Free Jim t in ) URINALYSIS NONAUTO W/O SCOPE 15389 GLUCOSE neg DateTime(Free Jim t in [employer]) URINALYSIS NONAUTO W/O SCOPE 90123 Protein neg DateTime(Free Jim t in Apr) URINALYSIS NONAUTO W/O SCOPE 55730 Blood 1+ DateTime(Free Text in [employer]) URINALYSIS NONAUTO W/O SCOPE 70528 Bilirubin neg DateTime(Free Jim t in Apr) URINALYSIS NONAUTO W/O SCOPE 10966 Ketones neg DateTime(Free Jim t in ) URINALYSIS NONAUTO W/O SCOPE 85684 Urobilinogen neg DateTime(Free Text in [employer]) URINALYSIS NONAUTO W/O SCOPE 81006 Nitrite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 USE NEC[ICD9: V58.69] Diagnosis: Laboratory exam ordered as part of routine general medical examination[ICD9: V72.62] Diagnosis: HYPOTHYROIDISM[ICD9: 244.9] Chaparrita Flanagan MD, [facility] CPT- 4: 18909 11/12/2013 ([id number]) 46224 EST. P ATIENT, LEVEL III Diagnosis: Acute maxillary sinusitis[ICD9: 461.0] Chaparrita Flanagan MD, [facility] CPT-4: 57098 10/09/2013 ([id number]) 94797 EST. P ATIENT, LEVEL III Diagnosis: ESSENTIAL HYPERTENSION[SNOMED: 64376504] Diagnosis: DYSURIA[ICD9: 788.1] Concepción Flanagan MD, [facility] CPT-4: 89056 04/03/2013 ([id number]) 43677 EST. P ATIENT, LEVEL III Diagnosis: ESSENTIAL HYPERTENSION[SNOMED: 69026337] Diagnosis: EDEMA[ICD9: 782.3] Concepción Flanagan MD, [facility] CPT-4: 38276 01/06/2013 ([id number]) 08902 EST. P ATIENT, LEVEL III Diagnosis: UNSPECIFIED ASTHMA[ICD9: 493.90] Diagnosis: Cough[ICD9: 786.2] Diagnosis: ALLERGIC RHINITIS[ICD9: 477.9] Concepción Flanagan MD, [facility] CPT-4: 73023 11/21/2012 ([id number]) 90245 EST. P ATIENT, LEVEL IV Diagnosis: ESSENTIAL HYPERTENSION[SNOMED: 35141400] Diagnosis: EDEMA[ICD9: 782.3] Concepción Flanagan MD, [facility] CPT-4: 51397 10/28/2012 ([id number]) 49133 EST. P ATIENT, LEVEL IV Diagnosis: ESSENTIAL HYPERTENSION[SNOMED: 67073982] Diagnosis: EDEMA[ICD9: 782.3] Diagnosis: Knee pain, right[ICD9: 719.46] Diagnosis: Urge incontinence[ICD9: 788.31] Concepción Flanagan MD, [facility] CPT-4: 75106 09/30/2012 ([id number]) 73822 EST. P ATIENT, LEVEL III Diagnosis: ESSENTIAL HYPERTENSION[SNOMED: 82211472] Concepción Flanagan MD, [facility] CPT-4: 59966 08/14/2012 ([id number]) 98483 EST. P ATIENT, LEVEL III Diagnosis: CELLULITIS OF LEG[ICD9: 682.6] Concepción Flanagan MD, [facility] CPT-4: 95672 08/05/2012 ([id number]) 21223 EST. P ATIENT, LEVEL IV Diagnosis: ESSENTIAL HYPERTENSION[SNOMED: 22927770] Diagnosis: EDEMA[ICD9: 782.3] Diagnosis: Constipation[ICD9: 564.00] Concepción Flanagan MD, [facility] CPT-4: 05744 07/15/2012 ([id number]) 74002 EST. P ATIENT, LEVEL III Diagnosis: Subungual contusion of toenail[ICD9: 924.3] Concepción Flanagan MD, [facility] CPT-4: 27165 05/27/2012 Postop follow up vis it related to original px Diagnosis: BENIGN ERLINDA SKIN ARM[ICD9: 216.6] Diagnosis: BENIGN ERLINDA SKIN TRUNK[ICD9: 216.5] Concepción Flanagan MD, [facility] CPT- 4: 93878 05/03/2012 ([id number]) 91381 EST. P ATIENT, LEVEL IV Diagnosis: ESSENTIAL HYPERTENSION[SNOMED: 67630769] Diagnosis: OA (osteoarthritis) of knee[ICD9: 715.96] Diagnosis: EDEMA[ICD9: 782.3] Concepción Flanagan MD, [facility] CPT-4: 34859 03/25/2012 30264 EST. PATIENT, LEVEL IV Diagnosis: ESSENTIAL HYPERTENSION[SNOMED: 83114782] Diagnosis: Abdominal bloating[ICD9: 787.3] Concepción Flanagan MD, [facility] CPT-4: 89404 03/12/2012 ([id number]) 69955 EST. P ATIENT, LEVEL IV Diagnosis: ESSENTIAL HYPERTENSION[SNOMED: 20320032] Diagnosis: EDEMA[ICD9: 782.3] Concepción Flanagan MD, [facility] CPT-4: 90920 01/23/2012 ([id number]) 00302 EST. P ATIENT, LEVEL III Diagnosis: Breast pain, left[ICD9: 611.71] Chaparrita Flanagan MD, [facility] CPT- 4: 46834 01/12/2012 ([id number]) 60914 EST. P ATIENT, LEVEL IV Diagnosis: ESSENTIAL HYPERTENSION[SNOMED: 04936398] Diagnosis: DEPRESSIVE DISORDER NEC[ICD9: 311] Diagnosis: ANXIETY STATE[ICD9: 300.00] Concepción Flanagan MD, [facility] CPT-4: 53745 12/25/2011 ([id number]) 87931 EST. P ATIENT, LEVEL IV Diagnosis: ESSENTIAL HYPERTENSION[SNOMED: 32235214] Diagnosis: EDEMA[ICD9: 782.3] Concepción Flanagan MD, [facility] CPT-4: 28863 12/04/2011 ([id number]) 97660 EST. P ATIENT, LEVEL IV Diagnosis: ESSENTIAL HYPERTENSION[SNOMED: 22884518] Diagnosis: DEPRESSIVE DISORDER NEC[ICD9: 311] Concepción Flanagan MD, [facility] CPT- 4: 19117 09/20/2011 36559 EST. PATIENT, LEVEL IV Diagnosis: Dysuria[ICD9: 788.1] Diagnosis: ESSENTIAL HYPERTENSION[SNOMED: 00864603] Diagnosis: Anxiety[ICD9: 300.00] Concepción Flanagan MD, [facility] CPT-4: 05427 09/06/2011 ([id number]) 81050 EST. P ATIENT, LEVEL IV Diagnosis: LUMBAGO[ICD9: 724.2] Diagnosis: ESSENTIAL HYPERTENSION[SNOMED: 59961930] Concepción Flanagan MD, [facility] CPT-4: 85738 08/30/2011 33836 EST. PATIENT, LEVEL III Diagnosis: ACUTE SINUSITIS[ICD9: 461.9] Diagnosis: Urinary frequency[ICD9: 788.41] Chaparrita Flanagan MD, [facility] CPT- 4: 40900 08/23/2011 27312 EST. PATIENT, LEVEL III Diagnosis: Lesion of labia[ICD9: 624.8] Chaparrita Flanagan MD, [facility] CPT- 4: 28755 08/09/2011 39068 EST. PATIENT, LEVEL IV Diagnosis: HYPOTHYROIDISM[ICD9: 244.9] Diagnosis: HYPERLIPIDEMIA[ICD9: 272.4] Diagnosis: BP (high blood pressure)[SNOMED: 88403791] Diagnosis: Knee pain, bilateral[ICD9: 719.46] Diagnosis: ESOPHAGEAL REFLUX[ICD9: 530.81] [facility] CPT-4: 12757 05/04/2011 44624 EST. PATIENT, LEVEL III Diagnosis: ACUTE URI[ICD9: 465.9] Diagnosis: Asthma[ICD9: 493.90] Diagnosis: Esophageal reflux[ICD9: 530.81] Chaparrita Arrieta [facility] CPT- 4: 87942 04/19/2011 Plan of Care Planned Activity Notes [...] at home. 04/01/2019 Appointment: Concepción Flanagan WPtel: [facility] (15 min) Moderate 04/01/2019 Patient Education: Patient [...] joints today 03/11/2019 Appointment: Concepción Flanagan WPtel: [facility]8 [facility] (15 min) Moderate 03/11/2019 Patient Education: Patient [...] this time. 09/03/2018 Appointment: Concepción Flanagan WPtel: [facility] (15 min) Moderate 09/03/2018 Patient Education: [...] back. 05/29/2018 Appointment: Concepción Flanagan WPtel: [phone] [place] (15 min) Moderate 05/29/2018 Patient Education: Patient Medication Summary Completed 05/29/2018 Care Plan: Referral Order SNOMED-CT : 615126155 Pending 05/29/2018 Visit Plan: Wound Instructions - [...] medications. 01/23/2018 Appointment: Concepción Flanagan WPtel: [phone] [facility] (15 min) Moderate 01/23/2018 Patient Education: Patient Medication Summary Completed 01/23/2018 Visit Plan: Cough - improved - sinu sitis resolved. 09/26/2017 Appointment: Concepción Flanagan WPtel: [phone] [facility] (15 min) Moderate 09/26/2017 Patient Education: Patient Medication Summary Completed 09/26/2017 Visit Plan: Acute Maxillary Sinusit is - if not improving - pt would like to see an ENT - [facility] Tompkins in [place]. Treatment as follows: cefdinir - antibiotic twice [...] hydrocodone. 09/12/2017 Appointment: Concepción Flanagan [facility]Ptel[phone] (15 min) Moderate 09/12/2017 Patient Education: [...] spray. 08/31/2017 [phone] ([facility] min) Complex 08/31/2017 Patient Education: Patient Medication Summary Completed 08/31/2017 Visit Plan: URI - Pt advised to inc rease fluids, vitamin C. Discussed natural and expected course of this diagnosis and need to alert me if symptoms do not follow expected course, or if any worse. RX sent to patient's pharmacy. 08/09/2017 Appointment: Chaparrita Arrieta [phone] [facility] (30 min) Complex 08/09/2017 Patient Education: Patient [...] hydrocodone. 05/07/2017 Appointment: Concepción Flanagan WPtel: [phone] (15 min) Moderate 05/07/2017 Patient Education: [...] care surrogate. 04/12/2017 Appointment: Hayley London WPtel: [facility]3 [facility] [facility] - Annual Wellness Visit 04/12/2017 Patient Education: Patient Medication Summary Completed 04/12/2017 Appointment: Nurse Visit 02/15/2017 Patient Education: Patient Medication Summary Completed 02/15/2017 Visit Plan: Nouge-qpbnohayvv-posda zpack when finished with cipro-follow up chest [...] day-follow up Sunday02/02/2017 Appointment: Chaparrita Arrieta [facility]el[phone] [facility] (15 min) Moderate 02/02/2017 Patient [...] shot today 01/04/2017 Appointment: Concepción Flanagan WPtel: [phone] (15 min) Moderate 01/04/2017 Patient Education: [...] (lexapro). 09/07/2016 Appointment: Concepción Flanagan WPtel: [phone] (30 min) Complex 09/07/2016 Patient Education: [...] home. 07/06/2016 Appointment: Concepción Flanagan WPtel: [phone] (15 min) Moderate 07/06/2016 Patient Education: [...] DAILY 06/08/2016 Appointment: Concepción Flanagan WPtel: [phone] (15 min) Moderate 06/08/2016 Patient Education: [...] edema. 04/06/2016 Appointment: Concepción Flanagan WPtel: [phone] (15 min) Moderate 04/06/2016 Patient Education: [...] for Mikala. 01/18/2016 Appointment: Concepción Flanagan WPtel: [facility] (15 min) Moderate 01/18/2016 Patient Education: [...] discuss with her son who is a [employer] - and consider re-evaluation for nasal pillows with her cpap since she could not tolerate a face mask cpap in the past. 12/25/2014 Appointment: Concepción Flanagan WPtel: [phone] [facility] Follow up 12/25/2014 Patient Education: Patient Medication [...] home. 10/13/2014 Appointment: Concepción Flanagan WPtel: [phone] [facility] [place] Follow up 10/13/2014 Patient Education: Patient [...] . 08/28/2014 Appointment: Concepción Flanagan WPtel: [phone] Follow up 08/28/2014 Patient Education: Patient [...] creatinine. 04/16/2014 Appointment: Concepción Flanagan WPtel: [phone] [facility] Follow up 04/16/2014 Patient Education: Patient Medication Summary Completed 04/16/2014 Patient Education: Patient Medication Summary Completed 04/14/2014 Patient Education: Hypertension Completed 04/14/2014 Visit Plan: Wound Instructions - Pt was instruced to keep the wound clean, wash with antibacterial soap, use triple antibiotic ointment, call if redness, pustular drainage, or any other acute conerns. 01/27/2014 Appointment: Concepción Flanagan WPtel: [phone] [facility] Surgical Procedure 01/27/2014 Patient Education: Patient Medication [...] out to do home eval. 01/21/2014 Appointment: GrahamConcepción WPtel: [facility]5 [facility] Follow up 01/21/2014 Patient Education: Patient Medication Summary Completed 01/21/2014 Patient Education: Hypertension Completed 01/21/2014 Visit Plan: Hypotension - Bradycard ia - pt to stop her metroprolol - check bp and heart rate twice daily and monitor symptoms. Call if bp uncontrolled- or heart rate to elevated. 01/07/2014 Appointment: Concepción Flanagan WPtel: [facility]5 [facility] Follow up 01/07/2014 Patient Education: Hypertension Completed [...] and swallow 11/12/2013 Appointment: Chaparrita Arrieta WPtel: [facility]5 [phone] Sick 11/12/2013 Patient Education: Patient Medication Summary Completed 11/12/2013 Patient Education: Hypertension Completed 11/12/2013 Visit Plan: Sinusitis - Pt has acut e infection - pain in face, maxillary region, Pt informed to use decongestant, RX given to patient, sinus rinses also recommended. Call if symptoms do not show improvement. 10/09/2013 Appointment: Chaparrita Arrieta WPtel: [facility]2 [phone] Sick 10/09/2013 Patient Education: [...] check UA 04/03/2013 Appointment: Concepción Flanagan WPtel: [phone] [facility] Follow up 04/03/2013 Patient Education: Patient Medication Summary Completed 04/03/2013 Patient Education: Hypertension Completed 04/03/2013 Patient Education: Patient Medication Summary Completed 03/31/2013 Patient Education: Hypertension Completed 03/31/2013 Visit Plan: ua performed - sent for culture if indicated. 03/21/2013 Appointment: Concepción Flanagan WPtel: [facility]8 [facility] Lab Draw 03/21/2013 Patient Education: Patient Medication [...] peripheral edema. 01/06/2013 Appointment: Concepción Flanagan WPtel: [facility]3 [facility] Follow up 01/06/2013 Patient Education: Patient Medication Summary Completed 01/06/2013 Patient Education: Hypertension Completed 01/06/2013 Visit Plan: Ilestnshi-Fnahai-wirinr ms not well controlled- KENALOG injection today [...] peripheral edema. 10/28/2012 Appointment: Concepción Flanagan WPtel: [facility] [place] Follow up 10/28/2012 Patient Education: Patient [...] treatment recommendations. 09/30/2012 Appointment: Concepción Flanagan WPtel: [address] [place] [address] [place] Follow up 09/30/2012 Patient Education: Patient Medication Summary Completed 09/30/2012 Patient Education: Hypertension Completed 09/30/2012 Appointment: Concepción Flanagan WPtel: [address] [place] [address] [place] Lab Draw 09/11/2012 Patient Education: Patient [...] resolved 08/14/2012 Appointment: Concepción Flanagan WPtel: [address] [place], [place] [phone] Follow up 08/14/2012 Patient Education: Patient Medication Summary Completed 08/14/2012 Patient Education: Hypertension Completed 08/14/2012 Visit Plan: Cellulitis - start with generic Bactrim DS as directed, return to clinic as previously directed, call for acute change in symptoms, worsening redness, warmth, discharge. 08/05/2012 Appointment: Concepción Flanagan WPtel: [address] [place], [place] [address] Follow up 08/05/2012 Patient Education: Patient Medication [...] stools. 07/15/2012 Appointment: Concepción Flanagan WPtel: [address] [place], [place] [id number] [place] [address] follow up 07/15/2012 Patient Education: Patient Medication Summary Completed 07/15/2012 Patient Education: Hypertension Completed 07/15/2012 Visit Plan: Subungual discoloratiio n of toenail- June 10 pt is to see Dr. Bee - I have discussed the case with the pt and Dr. bee and she will likely have a biopsy of the digit and avulsion of the nail. 05/27/2012 Appointment: Concepción Flanagan WPtel: [address] [place], [place] [phone] Other 05/27/2012 Patient Education: Patient Medication Summary Completed 05/27/2012 Appointment: Chaparrita Arrieta WPtel: [address] [place], [place] [address] Follow up 05/16/2012 Visit Plan: Obesity - [...] Influenza vaccine 05/03/2012 Appointment: Chaparrita Arrieta WPtel: [facility]5 [phone] [place] Follow up 05/03/2012 Patient Education: Patient Medication Summary Completed 05/03/2012 Visit Plan: Wound Instructions - Pt was instruced to keep the wound clean, wash with antibacterial soap, use triple antibiotic ointment, call if redness, pustular drainage, or any other acute conerns. 04/23/2012 Appointment: Concepción Flanagan WPtel: [facility]5 [facility] [place] Surgical Procedure 04/23/2012 Patient Education: Patient Medication Summary Completed 04/23/2012 Appointment: Concepción Flanagan WPtel: [facility]5 [facility] [place] Lab Draw 04/16/2012 Patient Education: Patient [...] readings at home. Recommend follow up with crosstie inspector for clearance before knee surgery. Will get [...] to thighs. 03/25/2012 Appointment: Concepción Flanagan WPtel: [facility] [place] Other 03/25/2012 Patient Education: Patient [...] of lesion. 03/12/2012 Appointment: Chaparrita Arrieta WPtel: [facility] [place] Other 03/12/2012 Patient Education: Patient Medication [...] home. 01/23/2012 Appointment: Concepción Flanagan WPtel: [phone] [facility]66[facility] Other 01/23/2012 Patient Education: Patient Medication Summary Completed 01/23/2012 Patient Education: High Blood Pressure: Essential Hypertension Completed 01/23/2012 Visit Plan: Breast nugh-lxec-zbumgn sed natural and expected course of this diagnosis and to alert me if symptoms do not follow expected course, or if any worse. Plan for diagnostic mammogram, in meantime, instructed patient to get more supportive bra, use anti-inflammatories and monitor symptoms. Patient verbalized understanding of plan. 01/12/2012 Appointment: Chaparrita Arrieta WPtel: [phone] [phone] Other 01/12/2012 [...] medications. 12/25/2011 Appointment: Concepción Flanagan WPtel: [phone] [facility] Other 12/25/2011 Patient Education: Patient Medication Summary [...] COMPRESSION SOCKS. 12/04/2011 Appointment: Concepción Flanagan WPtel: [facility] [place] Other 12/04/2011 Patient Education: Patient Medication Summary Completed 12/04/2011 Patient Education: High Blood Pressure: Essential Hypertension Completed 12/04/2011 Appointment: Chaparrita Arrieta WPtel: [facility] Lab Draw 12/01/2011 Patient Education: Patient Medication Summary Completed 12/01/2011 Appointment: Concepción Flanagan WPtel: [phone] [place] Lab Draw 11/20/2011 Patient Education: [...] acutely worsen. 09/20/2011 Appointment: Concepción Flanagan WPtel: [facility]6 [facility] Other 09/20/2011 Patient Education: Patient Medication Summary Completed 09/20/2011 Patient Education: High Blood Pressure: Essential Hypertension Completed 09/20/2011 Appointment: Concepción Flanagan WPtel: [facility]8 [facility] [place] Other 09/13/2011 Visit Plan: Hypertension - [...] benefits of treament with the above medications. Znqhqqz-emntausd-TV negative 09/06/2011 Appointment: Chaparrita Arrieta WPtel: [phone] [phone] [place] Other 09/06/2011 Patient [...] they worsen. 08/30/2011 Appointment: Concepción Flanagan WPtel: [address] [place] [address] Other 08/30/2011 Patient Education: Patient Medication Summary [...] patient's pharmacy. 08/23/2011 Appointment: Chaparrita Arrieta WPtel: [address] [place], [place] [phone] Other 08/23/2011 Patient Education: Patient Medication Summary Completed 08/23/2011 Visit Plan: Labial cyst-discussed n atural and expected course of this diagnosis and to alert me if symtpoms do not follow expected course, or if any worse. Patient and verbalized understanding. 08/09/2011 Appointment: Chaparrita Arrieta WPtel: [address] [place], [place] [phone] Other 08/09/2011 Patient Education: Patient Medication Summary [...] not improving. 05/04/2011 Appointment: Concepción Flanagan WPtel: [facility] [place] Other 05/04/2011 Patient Education: Patient [...] daily. 04/19/2011 Appointment: Chaparrita Arrieta WPtel[phone] [place] Other 04/19/2011 Patient Education: Patient Medication Summary Completed 04/19/2011 Referral: External, Ordering Provider Referral Appointment Requested Instructions Comment Recommend diagnostic mammogram with ultrasound if needed Get supportive bra and make sure your breasts are well suppported. Recommend aleve twice daily and monitor symptoms. . Breast hter-byjq-yjnefpiip natural and expected course of this diagnosis and to alert me if symptoms do not follow expected course, or if any worse. Plan for diagnostic mammogram, in meantime, instructed patient to get more supportive bra, use anti-inflammatories and monitor symptoms. Patient verbalized understanding of plan. . Wound Instructions - Pt was instruced to keep the wound clean, wash with antibacterial soap, use triple antibiotic ointment, call if redness, pustular drainage, or any other acute conerns. 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 . Hypertension [...] do not improve, or if any worse.. Rmoeymxxn-Uuqxbz-ykgyxqtq not well controlled-KENALOG injection today in the [...] this daily to help soften stools. . continue with jolly car 40mg, and [...] acute conerns. Sutures removed today Influenza vaccine Cymbalta 30mg daily Call with any side [...] benefits of treament with the above medications. Hfcfbtm-jshnilju-EV negative cefdinir - antibioti c twice daily x 2 weeks diflucan antifungal one time daily x 2 weeks use your sinus rinse at least twice each morning and evening . Acute Maxillary Sinusitis - if not imp roving - pt would like to see an ENT - [facility] Tompkins in [place]. Treatment as follows: cefdinir - antibiotic twice [...] pain - symptoms - refilled hydrocodone. . Wound Instructions - Pt was instructed [...] avulsion of the nail. . Hypertension - wel l controlled - [...] discuss with her son who is a [employer] - and consider re-evaluation for nasal pillows [...] - supportive care at this time. . Medicare Exam - to day we [...] in blood pressure readings at home. . Wound Instructions - Pt was instruced [...] during the removal process. . Hypertension - we ll controlled - [...] pressure readings at home. Cellulitis - resolved stop metoprolol blood pressure and heart rate [...] change in symptoms, worsening redness, warmth, discharge. FLONASE 1 SPRAY EACH NARE DAILY PREDNISONE [...] readings at home. Recommend follow up with crosstie inspector for clearance before knee surgery. Will get [...] Cough - improved - sinusitis resolved. . Cvcde-varxgensok-b tart zpack when finished with cipro- follow [...]
--- OUTSIDE RECORDS SUMMARY | 2020-01-05 01:21 | XMS REPORT | CCD ---
Author Author Mikala Arrieta Organization Concepción Flanagan MD, [facility] Address [address] [place] [address] Phone Care Team Providers Care New Product Trainer Name Role Phone Concepción Flanagan PP Unavailable CCM Unavailable Summary Purpose Interface Exchange Insurance Providers Payer name Policy type / Coverage type Covered green party ID Effective Begin Date Effective End Date WPS Medicare Part B Medicare Part B [id number] Unknown AARP Medicare Part B [id number] Unknown Family history Son Diagnosis Age At [...] M arried 04/19/[address]: 2841357 Quit over 10 years ago 40 pack/year [...] Condition Status Onset Date Resolved Date Acute bronchitis due to other specified organisms ICD-9: 466.0 ICD-10: J20.8 Active 03/11/2019 Unknown Acute recurrent maxi llary sinusitis ICD-9: 461.0 ICD-10: J01.01 Active 01/15/2017 Unknown Essential (primary) hypertension ICD-9: 401.1 ICD-10: [...] Condition Codes Effectiv e Dates Condition Status Acute bronchitis due to other specified organisms ICD-9: 466.0 ICD-10: J20.8 03/11/2019 Active Acute recurrent maxi llary sinusitis ICD-9: 461.0 ICD-10: J01.01 01/15/2017 Active Essential (primary) hypertension ICD-9: 401.1 ICD-10: [...] Fill Instructions Xanax 0.25 mg tablet RxNorm: 388804 1-2 Tablet(s) PO QHS as needed insomnia 03/14/2019 06/11/2019 Ac tive Centrum Silver Ultra Women's tablet RxNorm: Tablet(s) PO No Stop Date Active prednisone 10 mg tablet RxNorm: 263693 2 Tablet(s) PO daily 03/11/2019 03/15/2019 Active doxycycline hyclate 100 mg tablet RxNorm: 7701628 1 Tablet(s) PO BID 03/11/2019 03/20/2019 Active Klor-Con 10 mEq tabl et,extended release RxNorm: 734818 Tablet(s) TAKE ONE TA BLET BY MOUTH DAILY 03/05/2019 11/29/2019 Active Klor-Con 10 mEq tabl et,extended release RxNorm: 946964 Tablet(s) TAKE ONE TA BLET BY MOUTH DAILY 03/05/2019 03/04/2019 Inactive Lasix 40 mg tablet RxNorm: 607078 TAKE ONE TABLET BY MOUTH DAILY 12/24/2018 06/21/2019 Ac tive Crestor 10 mg tablet RxNorm: 722875 TAKE 1 TABLET BY MOUTH ON SUNDAY, , AND Sunday12/03/2018 05/31/2019 Active Atacand 16 mg tablet RxNorm: 285222 1 Tablet(s) PO daily 11/06/2018 10/31/2019 Active replaces benicar Atacand 16 mg tablet RxNorm: 463729 1 Tablet(s) PO daily 11/06/2018 11/05/2018 Inactive replaces benicar meloxicam 15 mg tablet RxNorm: 447791 TAKE ONE TABLET BY MOUTH DAILY 10/08/2018 03/30/2020 Ac tive ProctoCream-HC 2.5 % rectal cream with applicator RxNorm: 392231 APPLY TO AFFECTED AREAS DIRECTED RTL 10/01/2018 No Stop Date Active Cartia XT 240 mg cap chad,extended release RxNorm: 745442 TAKE ONE CAPSULE BY M OUTH DAILY 09/23/2018 09/17/2019 Active Singulair 10 mg tablet RxNorm: 127697 TAKE ONE TABLET BY MOUTH EVERY DAY 09/06/2018 10/30/2019 Ac tive Klor-Con 10 mEq tabl et,extended release RxNorm: 783213 TAKE ONE TABLET BY [facility] TWICE A DAY 09/06/2018 03/04/2019 Inactive Xanax 0.25 mg tablet RxNorm: 535509 1-2 Tablet(s) PO QHS as needed insomnia 08/26/2018 11/22/2018 In active Voltaren 1 % topical gel RxNorm: 556746 APPLY TWO GRAMS TOPIC ALLY FOUR TIMES A DAY BILATERAL KNEES AND LOWER BACK 06/26/2018 09/23/2018 Inactive Lasix 40 mg tablet RxNorm: 751278 TAKE ONE TABLET BY MOUTH DAILY 06/20/2018 12/16/2018 In active Voltaren 1 % topical gel RxNorm: 202732 2 Gram(s) TOP QID basilia ateral knees and low back 05/29/2018 06/25/2018 Inactive Synthroid 50 mcg tablet RxNorm: 068647 Tablet(s) TAKE ONE TABLET BY MOUTH DAILY 05/17/2018 11/12/2018 In active Synthroid 50 mcg tablet RxNorm: 578695 TAKE ONE TABLET BY MOUTH DAILY 05/16/2018 05/16/2018 In active hydrocodone 5 mg-patrizia taminophen 325 mg tablet RxNorm: 373632 1/2 Tablet(s) PO QID as needed 05/15/2018 06/13/2018 Inactive Keflex 500 mg capsule RxNorm: 448639 1 Capsule(s) PO TID PRN 04/30/2018 05/06/2018 Inactive Silvadene 1 % topica l cream RxNorm: 779564 1 Application TOP BID 04/30/2018 05/09/2018 Inactive Anusol-HC 25 mg rect al suppository RxNorm: 6452347 1 Suppository PRN IN SERT 1 RECTALLY DAILY NEEDED 04/25/2018 No Stop Date Active Colace 100 mg capsule RxNorm: 8679346 1 Capsule(s) PO daily as needed 04/25/2018 No Stop Date Active Silvadene 1 % topica l cream RxNorm: 006001 1 Application TOP BID 04/25/2018 04/29/2018 Inactive meloxicam 15 mg tablet RxNorm: 515812 1 Tablet(s) PO daily TAKE ONE TABLET BY MOUTH ONE TIME A DAY 04/25/2018 10/07/2018 Inactive Benicar 40 mg tablet RxNorm: 232177 TAKE ONE TABLET BY MOUTH DAILY 04/04/2018 11/05/2018 In active Xanax 0.25 mg tablet RxNorm: 385789 1-2 Tablet(s) PO QHS as needed insomnia 03/07/2018 06/04/2018 In active Lasix 40 mg tablet RxNorm: 157321 TAKE ONE TABLET BY MOUTH DAILY 01/07/2018 06/19/2018 In active Crestor 10 mg tablet RxNorm: 006423 TAKE 1 TABLET BY MOUTH ON SUNDAY, , AND Sunday11/20/2017 05/18/2018 Inactive Synthroid 50 mcg tablet RxNorm: 117136 TAKE ONE TABLET BY MOUTH DAILY 11/14/2017 05/12/2018 In active Diflucan 150 mg tablet RxNorm: 752314 1 Tablet(s) PO daily 09/12/2017 09/25/2017 Inactive cefdinir 300 mg capsule RxNorm: 984080 1 Capsule(s) PO BID 09/12/2017 09/25/2017 Inactive Cartia XT 240 mg cap chad,extended release RxNorm: 180732 TAKE ONE CAPSULE BY M OUTH DAILY 09/12/2017 09/06/2018 Inactive prednisone 20 mg tablet RxNorm: 601491 2 Tablet(s) PO daily 08/31/2017 09/04/2017 Inactive Xanax 0.25 mg tablet RxNorm: 565519 1-2 Tablet(s) PO QHS as needed insomnia 08/28/2017 11/24/2017 In active Keflex 500 mg capsule RxNorm: 971126 1 Capsule(s) PO TID 08/28/2017 08/27/2017 Inactive Keflex 500 mg capsule RxNorm: 281151 1 Capsule(s) PO TID 08/28/2017 09/03/2017 Inactive Klor-Con 10 mEq tabl et,extended release RxNorm: 281300 TAKE ONE TABLET BY MO UTH TWICE A DAY 08/23/2017 08/17/2018 Inactive cefdinir 300 mg capsule RxNorm: 536352 1 Capsule(s) PO BID 08/13/2017 08/12/2017 Inactive cefdinir 300 mg capsule RxNorm: 920801 1 Capsule(s) PO BID 08/13/2017 08/19/2017 Inactive Kenalog 40 mg/mL heaven pension for injection RxNorm: 7089256 1 Milliliter(s) Inj 08/09/2017 08/09/2017 In active ceftriaxone 500 mg s olution for injection RxNorm: 3996960 Inj 08/09/2017 08/09/2017 Inactive Zithromax Z-Hebert 250 mg tablet RxNorm: 861302 1 Tablet(s) PO UD 08/09/2017 08/13/2017 Inactive Singulair 10 mg tablet RxNorm: 741603 TAKE ONE TABLET BY MOUTH EVERY DAY 08/03/2017 09/05/2018 In active Xanax 0.25 mg tablet RxNorm: 103121 1-2 Tablet(s) PO QHS as needed insomnia 07/25/2017 05/28/2018 In active Benicar 40 mg tablet RxNorm: 635200 TAKE ONE TABLET BY MOUTH DAILY 07/09/2017 04/03/2018 In active Lasix 40 mg tablet RxNorm: 425757 TAKE ONE TABLET BY MOUTH DAILY 07/09/2017 01/04/2018 In active Synthroid 50 mcg tablet RxNorm: 307986 1 Tablet(s) PO daily TAKE ONE TABLET BY MOUTH DAILY 05/21/2017 11/13/2017 Inactive Must be name brand Lasix 40 mg tablet RxNorm: 025376 TAKE ONE TABLET BY MOUTH DAILY 04/12/2017 07/08/2017 In active Zithromax Z-Hebert 250 mg tablet RxNorm: 388163 1 Tablet(s) PO UD 02/05/2017 02/09/2017 Inactive start with finished with cipro Cipro 500 mg tablet RxNorm: 463930 1 Tablet(s) PO BID 02/01/2017 02/07/2017 Inactive prednisone 20 mg tablet RxNorm: 244917 1 Tablet(s) PO BID 01/15/2017 01/19/2017 Inactive take 1 in the morning and 1 at noon calcium carbonate 60 0 mg calcium (1,500 mg) tablet RxNorm: 574954 1 Tablet(s) PO daily 01/04/2017 No Stop Date Active Kenalog 40 mg/mL heaven pension for injection RxNorm: 4766115 1 Milliliter(s) Inj 01/04/2017 01/04/2017 In active Anusol-HC 25 mg rect al suppository RxNorm: 3739104 1 Suppository PRN IN SERT 1 RECTALLY DAILY NEEDED 01/04/2017 04/03/2017 Inactive Lasix 40 mg tablet RxNorm: 849467 TAKE ONE TABLET BY MOUTH DAILY 12/20/2016 04/11/2017 In active Cartia XT 240 mg cap chad,extended release RxNorm: 802632 TAKE ONE CAPSULE BY M OUTH DAILY 12/20/2016 09/11/2017 Inactive Synthroid 50 mcg tablet RxNorm: 508684 1 Tablet(s) PO daily TAKE ONE TABLET BY MOUTH DAILY 11/27/2016 05/20/2017 Inactive Must be name brand meloxicam 15 mg tablet RxNorm: 162318 Tablet(s) TAKE ONE TABLET BY MOUTH ONE T MARÍA ELENA A DAY 11/27/2016 06/24/2017 Inactive Crestor 10 mg tablet RxNorm: 333543 TAKE 1 TABLET BY MOUTH ON SUNDAY, , AND Sunday11/13/2016 10/14/2017 Inactive Lexapro 10 mg tablet RxNorm: 522892 1 Tablet(s) PO daily 09/07/2016 01/03/2017 Inactive please make sure that her RX for lexapro is a 10mg dose - delete the 5mg lexapro pill - this is FYI Klor-Con 10 mEq tabl et,extended release RxNorm: 007875 TAKE ONE TABLET BY MO UTH TWICE A DAY 08/29/2016 02/24/2017 Inactive Kenalog 40 mg/mL heaven pension for injection RxNorm: 9590903 Milliliter(s) Inj 08/23/2016 08/23/2016 In active cefdinir 300 mg capsule RxNorm: 531342 1 Capsule(s) PO BID 08/22/2016 08/28/2016 Inactive take probiotic while on abx Zithromax Z-Hebert 250 mg tablet RxNorm: 667592 1 Tablet(s) PO UD 08/11/2016 09/06/2016 Inactive Z PACK DIRECTED Lexapro 5 mg tablet RxNorm: 668944 TAKE ONE TABLET BY MOUTH EVERY EVENING 07/18/2016 09/06/2016 In active Singulair 10 mg tablet RxNorm: 115392 TAKE ONE TABLET BY MOUTH EVERY DAY 07/17/2016 08/02/2017 In active Benicar 40 mg tablet RxNorm: 806784 TAKE ONE TABLET BY MOUTH DAILY 07/17/2016 07/08/2017 In active Lexapro 10 mg tablet RxNorm: 553881 1 Tablet(s) PO daily 06/16/2016 09/06/2016 Inactive diltiazem ER 180 mg capsule,extended release RxNorm: 152350 TAKE ONE CAPSULE BY M OUTH DAILY 06/15/2016 07/05/2016 Inactive Lexapro 10 mg tablet RxNorm: 825269 1 Tablet(s) PO daily 06/08/2016 06/15/2016 Inactive gabapentin 600 mg ta blet RxNorm: 285532 TAKE ONE TABLET BY MO UTH EVERY NIGHT AT BEDTIME NEEDED 04/27/2016 04/11/2017 Inactive Cartia XT 240 mg cap chad,extended release RxNorm: 047969 1 Capsule(s) PO daily TAKE ONE CAPSULE BY MOUTH ONCE A DAY 04/17/2016 12/19/2016 Inactive Benicar 40 mg tablet RxNorm: 783802 1 Tablet(s) PO daily 04/17/2016 07/16/2016 Inactive she can do 90 days if she wants to Lexapro 5 mg tablet RxNorm: 628887 1 Tablet(s) PO QPM 03/09/2016 06/07/2016 Inactive Synthroid 50 mcg tablet RxNorm: 357772 1 Tablet(s) PO daily TAKE ONE TABLET BY MOUTH DAILY 01/18/2016 07/15/2016 Inactive Colace 100 mg capsule RxNorm: 8127554 1 Capsule(s) PO daily 01/18/2016 04/24/2018 Inactive hydrocodone 5 mg-patrizia taminophen 325 mg tablet RxNorm: 085262 1/2 Tablet(s) PO QID as needed 01/18/2016 02/16/2016 Inactive Synthroid 50 mcg tablet RxNorm: 850775 Tablet(s) TAKE ONE TABLET BY MOUTH DAILY 12/23/2015 01/17/2016 In active Benicar 40 mg tablet RxNorm: 130679 1 Tablet(s) PO daily 12/13/2015 12/12/2015 Inactive Benicar 40 mg tablet RxNorm: 571079 1 Tablet(s) PO daily 12/13/2015 04/10/2016 Inactive meloxicam 15 mg tablet RxNorm: 940238 TAKE ONE TABLET BY MOUTH ONE TIME A DAY 11/12/2015 06/08/2016 In active meloxicam 15 mg tablet RxNorm: 027494 Tablet(s) TAKE ONE TABLET BY MOUTH ONE T MARÍA ELENA A DAY 11/11/2015 11/11/2015 Inactive Lasix 40 mg tablet RxNorm: 906545 Tablet(s) TAKE ONE TABLET BY MOUTH EVERY DAY 10/19/2015 12/19/2016 Inactive diltiazem ER 180 mg capsule,extended release RxNorm: 593021 1 Capsule(s) daily TA KE ONE CAPSULE BY MOUTH ONCE A DAY 09/27/2015 04/16/2016 Inactive Crestor 10 mg tablet RxNorm: 621294 1 Tablet(s) PO Sun09/17/2015 07/12/2016 Inactive [SAVINGS FOR UNINSURED PATIENTS -- BIN:0 [id number], PCN: ASPROD1, Group: [id number], ID# [id number], Process claim through [employer], for questions: . THIS IS NOT INSURANCE.] hydrocodone 5 mg-patrizia taminophen 325 mg tablet RxNorm: 278143 1-2 Tablet(s) PO Q6 P RN 09/09/2015 10/08/2015 In active Micardis 80 mg tablet RxNorm: 109796 1 Tablet(s) PO daily TAKE ONE TABLET BY MOUTH DAILY 08/23/2015 12/12/2015 Inactive Klor-Con 10 mEq tabl et,extended release RxNorm: 819750 Tablet(s) TAKE ONE TA BLET BY MOUTH TWICE A DAY 08/23/2015 02/18/2016 Inactive Synthroid 50 mcg tablet RxNorm: 874603 TAKE ONE TABLET BY MOUTH DAILY 07/06/2015 12/22/2015 In active meloxicam 15 mg tablet RxNorm: 178043 TAKE ONE TABLET BY MOUTH ONE TIME A DAY 06/22/2015 11/10/2015 In active Singulair 10 mg tablet RxNorm: 432535 TAKE ONE TABLET BY MOUTH EVERY DAY 05/18/2015 07/16/2016 In active Micardis 80 mg tablet RxNorm: 444301 TAKE ONE TABLET BY MOUTH DAILY 02/22/2015 05/04/2015 In active gabapentin 600 mg ta blet RxNorm: 023898 1 Tablet(s) PO HS as needed 01/15/2015 01/09/2016 Inactive [SAVINGS FOR NON-COVERED DRUGS -- BIN:00 3585, PCN: ASPROD1, Group: [id number], ID# [id number], Questions: . THIS IS NOT INSURANCE.] diltiazem ER 180 mg capsule,extended release RxNorm: 376797 TAKE ONE CAPSULE BY M OUTH ONCE A DAY 01/07/2015 09/26/2015 Inactive meloxicam 15 mg tablet RxNorm: 031518 TAKE ONE TABLET BY MOUTH ONE TIME A DAY 11/09/2014 05/07/2015 In active gabapentin 600 mg ta blet RxNorm: 854466 1 Tablet(s) PO HS as needed 10/13/2014 01/14/2015 Inactive [SAVINGS FOR UNINSURED PATIENTS -- BIN:0 77583, PCN: ASPROD1, Group: [id number], ID# [id number], Process claim through [employer], for questions: . THIS IS NOT INSURANCE.] omeprazole 20 mg tab let,delayed release RxNorm: 838789 1 Tablet(s) PO daily 10/13/2014 11/11/2014 In active Synthroid 50 mcg tablet RxNorm: 287757 TAKE ONE TABLET BY MOUTH EVERY DAY 10/12/2014 01/09/2015 In active Synthroid 50 mcg tablet RxNorm: 569244 Tablet(s) TAKE ONE TABLET BY MOUTH EVERY DAY 10/12/2014 10/11/2014 Inactive [SAVINGS FOR UNINSURED PATIENTS -- BIN:0 92355, PCN: ASPROD1, Group: [id number], ID# [id number], Process claim through [employer], for questions: . THIS IS NOT INSURANCE.] Lasix 40 mg tablet RxNorm: 374542 Tablet(s) PO TAKE ONE TABLET BY MOUTH TW ICE A DAY FOR 3 DAYS, THEN RESUME ONE DAILY EXCEPT ON WEDNESDAYS AND FRIDAYS TAKE ONE TWICE DAILY 09/22/2014 05/28/2018 Inactive [SAVINGS FOR UNINSURED ARTURO ENTS -- BIN:[id number], PCN: ASPROD1, Group: [id number], ID# [id number], Process claim through [employer], for questions: . THIS IS NOT INSURANCE.] Lasix 40 mg tablet RxNorm: 924719 TAKE ONE TABLET BY MOUTH EVERY DAY 09/22/2014 10/18/2015 In active Crestor 10 mg tablet RxNorm: 434641 1 Tablet(s) PO Sun08/28/2014 04/24/2015 Inactive [SAVINGS FOR UNINSURED PATIENTS -- BIN:0 12276, PCN: ASPROD1, Group: [id number], ID# [id number], Process claim through [employer], for questions: . THIS IS NOT INSURANCE.] Crestor 10 mg tablet RxNorm: 835095 1 Tablet(s) PO Sun08/28/2014 08/27/2014 Inactive [SAVINGS FOR UNINSURED PATIENTS -- BIN:0 77673, PCN: ASPROD1, Group: [id number], ID# [id number], Process claim through [employer], for questions: . THIS IS NOT INSURANCE.] Micardis 80 mg tablet RxNorm: 197664 TAKE ONE TABLET BY MOUTH EVERY DAY 08/24/2014 12/21/2014 In active Zithromax Z-Hebert 250 mg tablet RxNorm: 056136 Tablet(s) PO UD 08/14/2014 08/18/2014 Inactive 2 tabs day 1, 1 tabs days 2-5 Anusol-HC 25 mg supp ository RxNorm: 9093399 INSERT 1 RECTALLY DA GUSTAVO NEEDED 07/13/2014 10/10/2014 In active Klor-Con 10 mEq tabl et,extended release RxNorm: 552880 TAKE ONE TABLET BY [facility] TWICE A DAY 06/18/2014 12/14/2014 Inactive Lomotil 2.5 mg-0.025 mg tablet RxNorm: 0193844 1 Tablet(s) PO PRN a fter each loose stool max 8 per day 06/15/2014 10/12/2014 Inactive one after each loose bm juarez it 8 per day albuterol sulfate HF A 90 mcg/actuation aerosol inhaler RxNorm: 6479578 1 or2 Puff(s) INH Q4 PRN as needed 05/11/2014 05/10/2014 Inactive albuterol sulfate HF A 90 mcg/actuation aerosol inhaler RxNorm: 4270923 1 or2 Puff(s) INH Q4 PRN as needed 05/11/2014 01/03/2017 Inactive Premarin 0.625 mg/gr am vaginal cream RxNorm: 864697 1/2 Gram(s) VAG every other day 05/11/2014 12/06/2014 In active Premarin 0.625 mg/gr am vaginal cream RxNorm: 290145 1/2 Gram(s) VAG every other day 05/11/2014 05/10/2014 In active cefdinir 300 mg capsule RxNorm: 164220 1 Capsule(s) PO BID 05/07/2014 05/16/2014 Inactive Rocephin 500 mg solu tion for injection RxNorm: 749411 1 Milliliter(s) Inj 05/07/2014 05/07/2014 In active Singulair 10 mg tablet RxNorm: 721887 TAKE ONE TABLET BY MOUTH EVERY DAY 04/30/2014 10/12/2014 In active meloxicam 15 mg tablet RxNorm: 627337 1 Tablet(s) PO daily 04/16/2014 11/08/2014 Inactive Crestor 10 mg tablet RxNorm: 155216 1 Tablet(s) PO Sun TAKE ONE TAB LET BY MOUTH EVERY DAY 04/16/2014 08/27/2014 Inactive Synthroid 50 mcg tablet RxNorm: 407453 TAKE ONE TABLET BY MOUTH EVERY DAY 04/02/2014 09/28/2014 In active diltiazem ER 180 mg capsule,extended release RxNorm: 690043 1 Capsule(s) PO daily 01/05/2014 12/30/2014 In active Pennsaid 1.5 % topic al drops RxNorm: 303084 Drop(s) TOP APPLY 15 - 20 DROPS TOPICALLY FOUR TIMES A DAY 12/29/2013 01/17/2016 Inactive Rocephin 500 mg solu tion for injection RxNorm: 272172 Inj 12/2612/26/2013 Inactive Kenalog 40 mg/mL heaven pension for injection RxNorm: 8363542 Milliliter(s) Inj 12/26/2013 12/26/2013 In active Micardis 80 mg tablet RxNorm: 661520 Tablet(s) PO TAKE ONE TABLET BY MOUTH 12/15/2013 08/23/2014 Inactive nystatin 100,000 uni t/mL oral suspension RxNorm: 181161 4 Unit(s) PO QID swis h and swallow 11/12/2013 12/09/2013 Inactive Kenalog 40 mg/mL heaven pension for injection RxNorm: 8778873 Milliliter(s) Inj 11/12/2013 11/12/2013 In active Lasix 40 mg tablet RxNorm: 596506 Tablet(s) PO TAKE ONE TABLET BY MOUTH TW ICE A DAY FOR 3 DAYS, THEN RESUME ONE DAILY EXCEPT ON WEDNESDAYS AND FRIDAYS TAKE ONE TWICE DAILY 10/30/2013 09/21/2014 Inactive Lasix 40 mg tablet RxNorm: 857690 1 Tablet(s) PO daily 10/30/2013 10/29/2013 Inactive Rocephin 500 mg solu tion for injection RxNorm: 950631 1 Milliliter(s) Inj 10/09/2013 10/09/2013 In active metoprolol succinate ER 25 mg tablet,extended release 24 hr RxNorm: 389294 Tablet(s) PO TAKE ONE TABLET BY MOUTH EVERY DAY 10/02/2013 01/06/2014 Inactive metoprolol succinate ER 25 mg tablet,extended release 24 hr RxNorm: 895947 Tablet(s) PO TAKE ONE TABLET BY MOUTH EVERY DAY 08/04/2013 10/01/2013 Inactive Synthroid 50 mcg tablet RxNorm: 231298 Tablet(s) PO TAKE ONE TABLET BY MOUTH 07/14/2013 04/01/2014 Inactive gabapentin 600 mg ta blet RxNorm: 857447 1 Tablet(s) PO Q8 PRN 06/11/2013 06/11/2013 Inactive gabapentin 600 mg ta blet RxNorm: 220344 1 Tablet(s) PO Q8 PRN 06/11/2013 03/07/2014 Inactive Neurontin 600 mg tablet RxNorm: 735607 1 Tablet(s) PO Q8 PRN 06/10/2013 06/11/2013 Inactive Anusol-HC 25 mg supp ository RxNorm: 7401071 Suppository RTL INSE RT 1 RECTALLY DAILY NEEDED 04/24/2013 07/12/2014 Inactive metoprolol succinate ER 25 mg tablet,extended release 24 hr RxNorm: 546480 1 Tablet(s) PO daily 04/21/2013 08/03/2013 Inactive Premarin 0.625 mg/gr am Vaginal Cream RxNorm: 521498 1/2 Gram(s) VAG every other day 04/03/2013 10/29/2013 In active Klor-Con 10 mEq tabl et,extended release RxNorm: 203943 1 Tablet(s) PO daily 03/26/2013 03/20/2014 In active Klor-Con 10 mEq tabl et,extended release RxNorm: 267554 1 Tablet(s) PO BID 03/24/2013 03/23/2013 In active Klor-Con 10 mEq tabl et,extended release RxNorm: 617254 1 Tablet(s) PO BID 03/24/2013 03/25/2013 In active Klor-Con 10 mEq tabl et,extended release RxNorm: 439721 1 Tablet(s) PO BID 03/24/2013 03/23/2013 In active Augmentin 875 mg-125 mg tablet RxNorm: 909453 1 Tablet(s) PO BID 03/12/2013 03/18/2013 Inactive Augmentin 875 mg-125 mg tablet RxNorm: 660266 1 Tablet(s) PO BID 03/12/2013 03/11/2013 Inactive ciprofloxacin 500 mg tablet RxNorm: 419337 1 Tablet(s) PO BID 03/11/2013 03/17/2013 Inactive ciprofloxacin 500 mg tablet RxNorm: 654876 1 Tablet(s) PO BID 03/11/2013 03/10/2013 Inactive Crestor 10 mg tablet RxNorm: 523398 1 Tablet(s) PO daily 02/10/2013 02/09/2013 Inactive Crestor 10 mg tablet RxNorm: 431207 Tablet(s) PO TAKE ONE TABLET BY MOUTH EV DEANNA DAY 02/10/2013 04/15/2014 Inactive Singulair 10 mg tablet RxNorm: 030483 Tablet(s) PO TAKE ONE TABLET BY MOUTH EV DEANNA DAY 02/04/2013 04/29/2014 Inactive Kenalog 40 mg/mL Heaven p for Injection RxNorm: 5641062 1 Milliliter(s) Inj 11/21/2012 11/21/2012 In active Pennsaid 1.5 % topic al drops RxNorm: 835638 15-20 Drop(s) TOP QID 10/28/2012 11/21/2013 Inactive Micardis 80 mg tablet RxNorm: 977629 1 Tablet(s) PO daily 10/28/2012 10/22/2013 Inactive put this on file please, quantitiy incre ase Pennsaid 1.5 % Topic al Drops RxNorm: 235316 15-20 Drop(s) TOP QID 10/28/2012 10/27/2012 Inactive diltiazem ER 180 mg capsule,extended release RxNorm: 390212 1 Capsule(s) PO daily 10/14/2012 10/08/2013 In active Pyridium 200 mg tablet RxNorm: 1326503 1 Tablet(s) PO Q8 PRN 09/11/2012 10/12/2014 Inactive Flagyl 500 mg tablet RxNorm: 582511 1 Tablet(s) PO TID 09/04/2012 09/10/2012 Inactive Macrobid 100 mg capsule RxNorm: 3925183 1 Capsule(s) PO BID 09/03/2012 09/02/2012 Inactive Macrobid 100 mg capsule RxNorm: 2771128 1 Capsule(s) PO BID 09/03/2012 09/09/2012 Inactive sulfamethoxazole-tri methoprim 800 mg-160 mg tablet RxNorm: 435305 1 Tablet(s) PO BID 08/05/2012 08/14/2012 Inactive Lasix 40 mg tablet RxNorm: 877341 1 Tablet(s) PO BID pt is taking extra la six x 3 days, then every sunday and sunday take two lasix pills. 07/15/2012 07/09/2013 Inactive Synthroid 50 mcg tablet RxNorm: 308288 1 Tablet(s) PO daily 07/15/2012 07/09/2013 Inactive do not substitute the generic levothyrox ine for the synthroid brand name.....she needs brand name synthroid. Klor-Con 10 mEq tabl et,extended release RxNorm: 723807 1 Tablet(s) PO BID 07/15/2012 03/23/2013 In active Singulair 10 mg tablet RxNorm: 924531 1 Tablet(s) PO daily 06/12/2012 02/03/2013 Inactive Lexapro 10 mg tablet RxNorm: 307415 1/2 Tablet(s) PO daily 05/10/2012 06/03/2013 Inactive ProAir HFA 90 mcg/ac tuation Aerosol Inhaler RxNorm: 396278 2 INH Q6 PRN 04/23/2012 01/17/2016 In active Lexapro 10 mg tablet RxNorm: 400091 1/2 Tablet(s) PO daily 04/19/2012 05/09/2012 Inactive metoprolol succinate ER 50 mg tablet,extended release 24 hr RxNorm: 624142 1 Tablet(s) PO daily 04/09/2012 04/09/2012 Inactive Klor-Con 10 10 mEq t ablet,extended release RxNorm: 359699 1 Tablet(s) PO daily 04/01/2012 07/14/2012 In active metoprolol succinate ER 50 mg tablet,extended release 24 hr RxNorm: 830729 1/2 Tablet(s) PO BID 03/11/2012 04/08/2012 Inactive clonidine 0.1 mg Tab RxNorm: 847748 1 Tablet(s) PO BID 02/19/2012 03/12/2012 Inactive clonidine 0.1 mg Tab RxNorm: 109276 1 Tablet(s) PO BID 02/19/2012 02/18/2012 Inactive Micardis 80 mg Tab RxNorm: 541149 1 Tablet(s) PO daily 02/14/2012 02/13/2012 Inactive Micardis 80 mg tablet RxNorm: 040686 1 Tablet(s) PO daily 02/14/2012 10/27/2012 Inactive Synthroid 50 mcg tablet RxNorm: 468815 1 Tablet(s) PO daily 02/12/2012 07/14/2012 Inactive Tekturna 300 mg Tab RxNorm: 7586705 1 Tablet(s) PO daily 02/12/2012 03/12/2012 Inactive Lasix 40 mg Tab RxNorm: 270758 1 Tablet(s) PO daily 12/18/2011 12/17/2011 Inactive Lasix 40 mg tablet RxNorm: 425171 1 Tablet(s) PO daily 12/18/2011 07/14/2012 Inactive Anusol-HC 25 mg Supp ository RxNorm: 4031211 1 Suppository RTL QD AY PRN 12/04/2011 04/19/2012 In active lactobacillus acidop hilus Cap RxNorm: 1 Capsule(s) PO BID 11/21/2011 11/20/2011 Inactive lactobacillus acidop hilus Cap RxNorm: 1 Capsule(s) PO BID 11/21/2011 11/20/2011 Inactive Cipro 500 mg Tab RxNorm: 769089 1 Tablet(s) PO BID 11/21/2011 03/12/2012 Inactive lactobacillus acidop hilus Cap RxNorm: 1 Capsule(s) PO BID 11/21/2011 11/27/2011 Inactive lactobacillus acidop hilus Cap RxNorm: 1 Capsule(s) PO BID 11/21/2011 11/20/2011 Inactive Cipro 500 mg Tab RxNorm: 535682 1 Tablet(s) PO BID 11/21/2011 11/20/2011 Inactive Lexapro 10 mg Tab RxNorm: 886089 1 Tablet(s) PO daily 11/13/2011 11/12/2011 Inactive Lexapro 10 mg tablet RxNorm: 872889 1 Tablet(s) PO daily 11/13/2011 04/18/2012 Inactive amlodipine 10 mg Tab RxNorm: 831114 1 Tablet(s) PO daily 10/09/2011 12/03/2011 Inactive amlodipine 5 mg Tab RxNorm: 365104 1 Tablet(s) PO daily 09/20/2011 12/04/2011 Inactive Rocephin 500 mg Solu tion for Injection RxNorm: 0800847 Inj 11/201109/20/2011 Inactive metoprolol succinate ER 25 mg 24 hr Tab RxNorm: 394853 1 Tablet(s) PO QHS 08/30/2011 09/20/2011 In active Ambien 10 mg Tab RxNorm: 200914 1 Tablet(s) PO HS PRN 08/30/2011 04/19/2012 Inactive Augmentin 875 mg-125 mg Tab RxNorm: 659902 1 Tablet(s) PO BID 08/25/2011 09/20/2011 Inactive Augmentin 875 mg-125 mg Tab RxNorm: 187952 1 Tablet(s) PO BID 08/25/2011 08/24/2011 Inactive Rocephin 500 mg Solu tion for Injection RxNorm: 2935139 Inj 07/2808/23/2011 Inactive Levaquin 500 mg Tab RxNorm: 374083 1 Tablet(s) PO daily 08/23/2011 08/30/2011 Inactive chlordiazepoxide-cli dinium 5 mg-2.5 mg Cap RxNorm: 601806 1 Capsule(s) PO BID 07/10/2011 04/19/2012 In active q 12 hours prn metoprolol succinate ER 100 mg 24 hr Tab RxNorm: 693516 1 Tablet(s) PO daily 05/29/2011 03/12/2012 In active Synthroid 50 mcg Tab RxNorm: 379421 1 Tablet(s) PO daily 05/15/2011 08/12/2011 Inactive Ambien CR 12.5 mg Tab RxNorm: 982266 1 Tablet(s) PO HS PRN 05/09/2011 08/30/2011 Inactive Ambien 10 mg Tab RxNorm: 249462 1 Tablet(s) PO QHS 05/09/2011 06/07/2011 Inactive Nexium 40 mg Cap RxNorm: 761042 1 Capsule(s) PO daily 05/04/2011 03/12/2012 Inactive the patient had tried pepcid, otc priolosec, RX omperazole, failed them all Bactrim DS 800 mg-16 0 mg Tab RxNorm: 283942 1 Tablet(s) PO BID 04/19/2011 08/30/2011 Inactive triamcinolone aceton margie 40 mg/mL Susp for Injection RxNorm: 9719751 1 Milliliter(s) Inj UD 04/19/2011 04/19/2011 Inactive aspirin 81 mg Tab, D elayed Release RxNorm: 800595 1 Tablet(s) PO daily No Start Date Active 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 Device RxNorm: Miscellaneous QHS sleep form raiser ea, 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 No Start Date Active Cymbalta 30 mg Cap RxNorm: 695039 1 Capsule(s) PO daily No Start Date 03/12/2012 Inactive Nexium 40 mg Cap RxNorm: 110537 Capsule(s) PO No Start Date 05/03/2011 Inactive Benadryl 25 mg capsule RxNorm: 2351248 1 Capsule(s) PO QHS No Start Date 01/03/2017 Inactive Klor-Con 10 10 mEq t ablet,extended release RxNorm: 885327 1 Tablet(s) PO daily No Start Date 03/31/2012 Inactive Metamucil Oral RxNorm: Oral No Start Date 10/12/2014 Inactive amlodipine 10 mg Tab RxNorm: 374768 1 Tablet(s) PO daily No Start Date 10/08/2011 Inactive Norvasc 5 mg tablet RxNorm: 294637 1 Tablet(s) PO daily No Start Date 10/12/2014 Inactive Lasix 40 mg Tab RxNorm: 191586 1 Tablet(s) PO daily No Start Date 12/17/2011 Inactive diltiazem ER (XR/XT) 240 mg capsule,extended release,controlled RxNorm: 946822 1 Capsule(s) PO daily No Start Date 04/22/2012 Inactive Centrum Silver Ultra Women's oral RxNorm: oral No Start D ate 04/24/2018 Inactive Synthroid 50 mcg Tab RxNorm: 832811 1 Tablet(s) PO daily No Start Date 05/14/2011 Inactive Flagyl 500 mg tablet RxNorm: 234316 1 Tablet(s) PO No Start Date 09/03/2012 Inactive one after each loose bm limit 8 per day Boniva 150 mg Tab RxNorm: 388026 1 Tablet(s) PO UD No Start Date 08/30/2011 Inactive monthly Singulair 10 mg tablet RxNorm: 298164 1 Tablet(s) PO daily No Start Date 06/11/2012 Inactive folic acid Oral RxNorm: Oral No Start Date 03/12/2012 Inactive potassium chloride E R 10 mEq tablet,extended release RxNorm: 658131 1 Tablet(s) PO daily No Start Date 01/03/2017 Inactive Probiotic & Acidophi jerilyn oral RxNorm: oral No Start D ate 04/24/2018 Inactive Librium 10 mg Cap RxNorm: 942032 Capsule(s) PO UD No Start Date 03/12/2012 Inactive q 12 hours prn Crestor 10 mg tablet RxNorm: 748829 1 Tablet(s) PO daily No Start Date 02/09/2013 Inactive multivitamin Cap RxNorm: 1 Capsule(s) PO daily No Start Date 01/17/2016 Inactive metoprolol succinate ER 100 mg 24 hr Tab RxNorm: 438529 1 Tablet(s) PO daily No Start Date 05/28/2011 Inactive Zithromax Z-Hebert 250 mg tablet RxNorm: 164983 Tablet(s) PO UD No Start Date 12/22/2015 Inactive diltiazem ER 180 mg capsule,extended release RxNorm: 494933 1 Capsule(s) PO daily No Start Date 10/13/2012 Inactive ProctoCream-HC 2.5 % rectal cream with applicator RxNorm: 035092 APPLY TO AFFECTED AREAS DIRECTED RTL No Start Date 09/30/2018 Inactive Tekturna 300 mg Tab RxNorm: 2296926 1 Tablet(s) PO daily samples No Start Date 02/11/2012 Inactive Xanax 0.25 mg tablet RxNorm: 331957 1-2 Tablet(s) PO QHS as needed insomnia No Start Date 07/24/2017 Inactive Fish Oil 1,000 mg Cap RxNorm: 1 Capsule(s) PO daily No Start Date 04/24/2018 Inactive ProAir HFA 90 mcg/ac tuation Aerosol Inhaler RxNorm: 9951360 2 INH Q6 PRN No Start Date 04/22/2012 Inactive chlordiazepoxide-cli dinium 5 mg-2.5 mg Cap RxNorm: 586270 1 Capsule(s) PO PRN No Start Date 07/09/2011 Inactive q 12 hours prn Butrans 5 mcg/hour T ransderm Patch RxNorm: 274528 1 Patch TD weekly No Start Date 05/26/2012 Inactive Lactobacillus acidop hilus tablet RxNorm: 4 Tablet(s) PO daily No Start Date 01/03/2017 Inactive Librax (with clidini um) 5 mg-2.5 mg capsule RxNorm: 738323 1 Capsule(s) PO BID No Start Date 04/18/2012 Inactive Nexium 40 mg capsule ,delayed release RxNorm: 212276 Capsule(s) PO PRN No Start Date 10/12/2014 Inactive Tylenol Extra Streng th 500 mg tablet RxNorm: 908941 1 Tablet(s) PO BID as needed for pain No Start Date 04/24/2018 Inactive Premarin 0.625 mg/gr am Vaginal Cream RxNorm: 918469 Gram(s) VAG No Start Date 03/12/2012 Inactive three times a week, small amt to vaginal tissuesample given metoprolol succinate ER 50 mg tablet,extended release 24 hr RxNorm: 706484 1 Tablet(s) PO daily No Start Date 03/10/2012 Inactive Zithromax Z-Hebert 250 mg tablet RxNorm: 566833 Tablet(s) PO UD No Start Date 08/13/2014 Inactive albuterol sulfate HF A 90 mcg/actuation aerosol inhaler RxNorm: 7583503 1 or2 Puff(s) INH Q4 PRN No Start Date 05/10/2014 Inactive Xanax 0.25 mg Tab RxNorm: 822275 1/2-1 Tablet(s) PO Q8 PRN No Start Date 03/12/2012 Inactive metoprolol succinate ER 25 mg tablet,extended release 24 hr RxNorm: 212141 1 Tablet(s) PO daily No Start Date 04/20/2013 Inactive Zithromax Z-Hebert 250 mg tablet RxNorm: 330364 1 Tablet(s) PO UD No Start Date 08/10/2016 Inactive Z PACK DIRECTED calcium carbonate 60 0 mg (1,500 mg) Tab RxNorm: 135874 1 Tablet(s) PO BID No Start Date 01/03/2017 Inactive albuterol sulfate HF A 90 mcg/Actuation Aerosol Inhaler RxNorm: 3053736 1-2 Puff(s) INH Q4 PRN No Start Date 03/11/2012 Inactive Vitamin D3 2,000 uni t capsule RxNorm: 399623 1 Capsule(s) PO daily No Start Date 10/12/2014 Inactive Colace 100 mg Cap RxNorm: 8101664 1 Capsule(s) PO BID No Start Date 01/17/2016 Inactive Neurontin 600 mg tablet RxNorm: 043145 1 Tablet(s) PO Q8 PRN No Start Date 06/09/2013 Inactive Lomotil 2.5 mg-0.025 mg tablet RxNorm: 7199357 1 Tablet(s) PO No Start Date 06/14/2014 Inactive one after each loose bm limit 8 per day Micardis 80 mg Tab RxNorm: 701284 1 Tablet(s) PO daily No Start Date 12/03/2011 Inactive Pyridium 200 mg tablet RxNorm: 3505687 1 Tablet(s) PO Q8 PRN No Start Date 09/10/2012 Inactive Medication Administered Medication Codes Instruc tions Start Date Status Kenalog 40 mg/mL suspension for injection RxNorm: 0519192 1Milliliter 08/09/2017 N o longer Active ceftriaxone 500 mg solution for injection RxNorm: 9592826 08/09/2017 No longer A ctive Kenalog 40 mg/mL suspension for injection RxNorm: 3584690 1Milliliter 01/04/2017 N o longer Active Kenalog 40 mg/mL suspension for injection RxNorm: 7026702 Milliliter 08/23/2016 No longer Active Rocephin 500 mg solution for injection RxNorm: 997559 1Milliliter 05/07/2014 N o longer Active Kenalog 40 mg/mL suspension for injection RxNorm: 8470589 Milliliter 12/26/2013 No longer Active Rocephin 500 mg solution for injection RxNorm: 535895 12/26/2013 No longer A ctive Kenalog 40 mg/mL suspension for injection RxNorm: 1220248 Milliliter 11/12/2013 No longer Active Rocephin 500 mg solution for injection RxNorm: 508001 1Milliliter 10/09/2013 N o longer Active Kenalog 40 mg/mL Susp for Injection RxNorm: 4002202 1Milliliter 11/21/2012 N o longer Active Rocephin 500 mg Solution for Injection RxNorm: 8656226 08/23/2011 No longer A ctive triamcinolone acetonide 40 mg/mL Susp for Injection RxNorm: 2480578 1MilliliterUD 04/19/2011 No longer Active Immunizations Vaccine [...] 11/12/2013 Laboratory exam ordered as part of [facility] general medical examination ICD-9: V72.62 11/12/2013 [...] Item Item Code Result Date Comp Metabolic Bty169 NA 139 mEq/L 05/29/2018 Comp Metabolic Fzs942 K 4.1 mEq/L 05/29/2018 Comp Metabolic Swo545 CL 99 mEq/L 05/29/2018 Comp Metabolic Hgo133 CO2 30.0 mEq/L 05/29/2018 Comp Metabolic Kyx732 AN ION GAP 14 05/29/2018 Comp Metabolic Plf180 GL UCOSE 107 mg/dL 05/29/2018 Comp Metabolic Nxb423 Cr eat 0.6 mg/dL 05/29/2018 Comp Metabolic Dcr817 eG FR 95 ml/min/1.73m2 05/29 Comp Metabolic Yvw766 BUN 15 mg/dL 05/29/2018 Comp Metabolic Ejn014 B/ C Ratio 23.4 Ratio 05/29/2018 Comp Metabolic Bea487 CA LCIUM 9.4 mg/dL 05/29/2018 Comp Metabolic Low237 AL K PHOS 52 U/L 05/29/2018 Comp Metabolic Wty381 T(SGOT) 16 U/L 05/29/2018 Comp Metabolic Prj782 AL T(SGPT) 12 U/L 05/29/2018 Comp Metabolic Gsy124 BI LI T 1.1 mg/dL 05/29/2018 Comp Metabolic Dqw552 AL BUMIN 4.0 g/dL 05/29/2018 Comp Metabolic Tap718 TP RO 6.5 g/dL 05/29/2018 Comp Metabolic Ftl805 GL OB 2.5 g/dL 05/29/2018 Comp Metabolic Oei308 A/ G Ratio 1.6 Ratio 05/29/2018 Comp Metabolic Ycx335 Os mo 279 mOsmo 05/29/2018 Cbc With [...] 28.9 pg 05/29/2018 Cbc With Differential Ord2 [place]% 9.0 % 05/29/2018 Cbc With Differential Ord2 [...] 2.05 K/ul 05/29/2018 Cbc With Differential Ord2 [place] ABS# 0.7 K/ul 05/29/2018 Cbc With Differential Ord2 Eos ABS# 0.2 K/ul 05/29/2018 Cbc With Differential Ord2 Baso ABS# 0.0 K/ul 05/29/2018 Tsh Ord6 TSH (3rd IS) 2.05 uIU/mL 05/29/2018 Lipid Ord30 CHOL 191 mg/dL 05/29/2018 Lipid Ord30 HDL 68.0 mg/dl 05/29/2018 Lipid Ord30 TRIG 138 mg/dL 05/29/2018 Lipid Ord30 LDL 95 mg/dL 05/29/2018 Lipid Ord30 C/HDL 2.8 Ratio 05/29/2018 Free T4 Hpg696 FREE T4 0.93 ng/dL 05/29/2018 Free T4 Ybr550 FREE T4 0.90 ng/dL 09/12/2017 Cbc With [...] 29.3 pg 09/12/2017 Cbc With Differential Ord2 [place]% 8.7 % 09/12/2017 Cbc With Differential Ord2 [...] 2.72 K/ul 09/12/2017 Cbc With Differential Ord2 [place] ABS# 1.2 K/ul 09/12/2017 Cbc With Differential Ord2 Eos ABS# 0.3 K/ul 09/12/2017 Cbc With Differential Ord2 Baso ABS# 0.1 K/ul 09/12/2017 Comp Metabolic Pvn306 NA 140 mEq/L 09/12/2017 Comp Metabolic Hzi609 K 4.3 mEq/L 09/12/2017 Comp Metabolic Aew373 CL 99 mEq/L 09/12/2017 Comp Metabolic Bxj030 CO2 33.0 mEq/L 09/12/2017 Comp Metabolic Oeg303 AN ION GAP 12 09/12/2017 Comp Metabolic Tfu286 GL UCOSE 92 mg/dL 09/12/2017 Comp Metabolic Las400 Cr eat 0.7 mg/dL 09/12/2017 Comp Metabolic Dhg167 eG FR 84 ml/min/1.73m2 09/12 Comp Metabolic Ahp478 BUN 18 mg/dL 09/12/2017 Comp Metabolic Iie209 B/ C Ratio 25.4 Ratio 09/12/2017 Comp Metabolic Qyk263 CA LCIUM 9.3 mg/dL 09/12/2017 Comp Metabolic Tcv188 AL K PHOS 64 U/L 09/12/2017 Comp Metabolic Jvz967 T(SGOT) 13 U/L 09/12/2017 Comp Metabolic Yfl580 AL T(SGPT) 12 U/L 09/12/2017 Comp Metabolic Tbl389 BI LI T 0.7 mg/dL 09/12/2017 Comp Metabolic Vmk468 AL BUMIN 4.0 g/dL 09/12/2017 Comp Metabolic Jmm316 TP RO 6.3 g/dL 09/12/2017 Comp Metabolic Hnu113 GL OB 2.3 g/dL 09/12/2017 Comp Metabolic Klf223 A/ G Ratio 1.8 Ratio 09/12/2017 Comp Metabolic Xpm783 Os mo 281 mOsmo 09/12/2017 Lipid Ord30 [...] 28.8 pg 03/09/2016 Cbc With Differential Ord2 [place]% 8.5 % 03/09/2016 Cbc With Differential Ord2 [...] 2.38 K/ul 03/09/2016 Cbc With Differential Ord2 [place] ABS# 0.8 K/ul 03/09/2016 Cbc With Differential Ord2 Eos ABS# 0.2 K/ul 03/09/2016 Cbc With Differential Ord2 Baso ABS# 0.1 K/ul 03/09/2016 Comp Metabolic Bud810 NA 138 mEq/L 03/09/2016 Comp Metabolic Xsz712 K 4.5 mEq/L 03/09/2016 Comp Metabolic Fop648 CL 100 mEq/L 03/09/2016 Comp Metabolic Jvf278 CO2 33.0 mEq/L 03/09/2016 Comp Metabolic Rnf160 AN ION GAP 10 03/09/2016 Comp Metabolic Jcb450 GL UCOSE 94 mg/dL 03/09/2016 Comp Metabolic Hkn407 Cr eat 0.6 mg/dL 03/09/2016 Comp Metabolic Yue926 eG FR 106 ml/min/1.73m2 02/24 Comp Metabolic Iwq861 BUN 10 mg/dL 03/09/2016 Comp Metabolic Pst430 B/ C Ratio 17.2 Ratio 03/09/2016 Comp Metabolic Htl617 CA LCIUM 9.2 mg/dL 03/09/2016 Comp Metabolic Sjq469 AL K PHOS 64 U/L 03/09/2016 Comp Metabolic Klx233 T(SGOT) 20 U/L 03/09/2016 Comp Metabolic Ukk294 AL T(SGPT) 11 U/L 03/09/2016 Comp Metabolic Lwt327 BI LI T 0.9 mg/dL 03/09/2016 Comp Metabolic Zap151 AL BUMIN 4.0 g/dL 03/09/2016 Comp Metabolic Lpo111 TP RO 6.1 g/dL 03/09/2016 Comp Metabolic Zny129 GL OB 2.1 g/dL 03/09/2016 Comp Metabolic Sui638 A/ G Ratio 1.9 Ratio 03/09/2016 Comp Metabolic Hov433 Os mo 274 mOsmo 03/09/2016 Free T4 Dcs097 FREE T4 0.90 ng/dL 03/09/2016 Lipid Ord30 [...] hTSH II 3.25 uIU/mL 09/07/2015 Free T4 Svt496 FREE T4 0.79 ng/dL 09/07/2015 Comp Metabolic Wvx445 NA 137 mEq/L 09/07/2015 Comp Metabolic Cbz153 K 4.0 mEq/L 09/07/2015 Comp Metabolic Kwk215 CL 98 mEq/L 09/07/2015 Comp Metabolic Myr277 CO2 30.0 mEq/L 09/07/2015 Comp Metabolic Utw315 AN ION GAP 13 09/07/2015 Comp Metabolic Lyc967 GL UCOSE 101 mg/dL 09/07/2015 Comp Metabolic Cez091 Cr eat 0.6 mg/dL 09/07/2015 Comp Metabolic Blb736 eG FR 111 ml/min/1.73m2 08/27 Comp Metabolic Lwu046 BUN 16 mg/dL 09/07/2015 Comp Metabolic Joz622 B/ C Ratio 28.6 Ratio 09/07/2015 Comp Metabolic Ouo441 CA LCIUM 9.4 mg/dL 09/07/2015 Comp Metabolic Cuh235 AL K PHOS 68 U/L 09/07/2015 Comp Metabolic Jcx151 T(SGOT) 16 U/L 09/07/2015 Comp Metabolic Hjy834 AL T(SGPT) 12 U/L 09/07/2015 Comp Metabolic Rhk588 BI LI T 0.9 mg/dL 09/07/2015 Comp Metabolic Dae113 AL BUMIN 4.1 g/dL 09/07/2015 Comp Metabolic Nzz806 TP RO 6.5 g/dL 09/07/2015 Comp Metabolic Ueo718 GL OB 2.4 g/dL 09/07/2015 Comp Metabolic Jjb390 A/ G Ratio 1.7 Ratio 09/07/2015 Comp Metabolic Rmh582 Os mo 275 mOsmo 09/07/2015 Cbc With [...] Differential Ord2 RDW 14.4 % 09/07/2015 TSH 6287157 TSH 0.920 uIU/ML 08/28/2014 CBC 3380527 WBC 12.5 10e9/L 08/28/2014 CBC 4632445 RBC 3.44 10e12/L 08/28/2014 CBC 9496869 HGB 10.3 g/dL 08/28/2014 CBC 4144372 HCT DET 33.9 % 08/28/2014 CBC 3890348 MCV 98.5 fL 08/28/2014 CBC 4451304 MCH 29.9 pg 08/28/2014 CBC 6773298 MCHC 30.4 g/dL 08/28/2014 CBC 0093060 PLT 412 10e9/L 08/28/2014 CBC 8250350 MPV 10.2 fL 08/28/2014 CBC 5516501 NNEKA % 68.5 % 08/28/2014 CBC 2368105 LY % 20.8 % 08/28/2014 CBC 3134836 MON % 9.9 % 08/28/2014 CBC 5886837 EOS % 0.6 % 08/28/2014 CBC 1357719 BASO % 0.2 % 08/28/2014 CBC 4370220 RDW 15.8 % 08/28/2014 CBC 0179607 ABS NNEKA 8.56 10e9/L 08/28/2014 CBC 4322377 ABS LYMPH 2.60 10e9/L 08/28/2014 CBC 7450578 ABS MONO 1.24 10e9/L 08/28/2014 CBC 5273442 ABS EOS 0.08 10e9/L 08/28/2014 CBC 1748627 ABS BASO 0.03 10e9/L 08/28/2014 CBC 0116721 RDW-SD 55.4 fL 08/28/2014 GFR CALC 6804621 GFR AA >60 ML/MIN 08/28/2014 GFR CALC 4861623 GFR NON -AA >60 ML/MIN 08/28/2014 LIPID GRP HDL TE ST 69 MG/DL 08/28/2014 LIPID GRP TRIG 158 MG/DL 08/28/2014 LIPID GRP TEST L DL 96 MG/DL 08/28/2014 LIPID GRP CHOL 197 MG/DL 08/28/2014 LIPID GRP RCHOL/ HDL 2.86 RATIO 08/28/2014 LIPID GRP [id number] NON-HD L CH 128 MG/DL 08/28/2014 CHEM 14 6553114 AST 14 U/L 08/28/2014 CHEM 14 1564718 ALT 13 IU/L 08/28/2014 CHEM 14 4472208 BUN 15 MG/DL 08/28/2014 CHEM 14 3812434 ALBUMIN 4.2 GM/DL 08/28/2014 CHEM 14 9422908 CHLORIDE 98 MMOL/L 08/28/2014 CHEM 14 2774354 BILI TOT 1.2 MG/DL 08/28/2014 CHEM 14 8321696 ALK PHOS 68 U/L 08/28/2014 CHEM 14 5644506 SODIUM 137 MMOL/L 08/28/2014 CHEM 14 9850776 CREATINI NE 0.68 MG/DL 08/28/2014 CHEM 14 5826801 CALCIUM 9.1 MG/DL 08/28/2014 CHEM 14 4547630 POTASSIUM 3.7 MMOL/L 08/28/2014 CHEM 14 3150865 PROT TOT 6.2 GM/DL 08/28/2014 CHEM 14 2832998 GLUCOSE 91 MG/DL 08/28/2014 CHEM 14 4997799 BICARB 31 MMOL/L 08/28/2014 CHEM 14 1582817 ANION GAP 8 MEQ/L 08/28/2014 FREE T4 4473948 FREE T4 1.44 NG/DL 08/28/2014 LIPID GRP HDL TE ST 73 MG/DL 04/16/2014 LIPID GRP TRIG 131 MG/DL 04/16/2014 LIPID GRP TEST L DL 99 MG/DL 04/16/2014 LIPID GRP CHOL 198 MG/DL 04/16/2014 LIPID GRP RCHOL/ HDL 2.71 RATIO 04/16/2014 LIPID GRP NON-HD L CH 125 MG/DL 04/16/2014 CHEM 14 7539321 AST 17 U/L 04/14/2014 CHEM 14 0424040 ALT 17 IU/L 04/14/2014 CHEM 14 1866395 BUN 15 MG/DL 04/14/2014 CHEM 14 6487240 ALBUMIN 4.3 GM/DL 04/14/2014 CHEM 14 8416233 CHLORIDE 96 MMOL/L 04/14/2014 CHEM 14 7438284 BILI TOT 0.9 MG/DL 04/14/2014 CHEM 14 4499775 ALK PHOS 65 U/L 04/14/2014 CHEM 14 4194906 SODIUM 135 MMOL/L 04/14/2014 CHEM 14 7144984 CREATINI NE 0.69 MG/DL 04/14/2014 CHEM 14 5389394 CALCIUM 9.5 MG/DL 04/14/2014 CHEM 14 5286955 POTASSIUM 4.1 MMOL/L 04/14/2014 CHEM 14 0735635 PROT TOT 6.6 GM/DL 04/14/2014 CHEM 14 3788893 GLUCOSE 104 MG/DL 04/14/2014 CHEM 14 1677011 BICARB 34 MMOL/L 04/14/2014 CHEM 14 1136340 ANION GAP 5 MEQ/L 04/14/2014 A1C HPLC 2174595 A1C HPLC 39603-1 5.0 % 04/14/2014 TSH 6942715 TSH 2.140 uIU/ML 04/14/2014 FREE T4 8565681 FREE T4 1.56 NG/DL 04/14/2014 GFR CALC 4720402 GFR AA >60 ML/MIN 04/14/2014 GFR CALC 4613101 GFR NON -AA >60 ML/MIN 04/14/2014 CBC 9980603 WBC 12.8 10e9/L 04/14/2014 CBC 5635985 RBC 4.44 10e12/L 04/14/2014 CBC 4511297 HGB 13.2 g/dL 04/14/2014 CBC 7436700 HCT DET 41.4 % 04/14/2014 CBC 6638631 MCV 93.2 fL 04/14/2014 CBC 1200516 MCH 29.7 pg 04/14/2014 CBC 3266749 MCHC 31.9 g/dL 04/14/2014 CBC 1189288 PLT 383 10e9/L 04/14/2014 CBC 6858449 MPV 10.1 fL 04/14/2014 CBC 6624243 NNEKA % 65.5 % 04/14/2014 CBC 9569946 LY % 23.0 % 04/14/2014 CBC 9059147 MON % 9.9 % 04/14/2014 CBC 9498856 EOS % 1.3 % 04/14/2014 CBC 6206827 BASO % 0.3 % 04/14/2014 CBC 2298029 RDW 13.7 % 04/14/2014 CBC 3585186 ABS NNEKA 8.38 10e9/L 04/14/2014 CBC 6664869 ABS LYMPH 2.94 10e9/L 04/14/2014 CBC 8406579 ABS MONO 1.27 10e9/L 04/14/2014 CBC 1644180 ABS EOS 0.17 10e9/L 04/14/2014 CBC 3091010 ABS BASO 0.04 10e9/L 04/14/2014 CBC 7653812 RDW-SD 45.9 fL 04/14/2014 A1C HPLC 2666255 A1C HPLC 28458-9 4.9 % 11/13/2013 CHEM 14 1343567 AST 15 U/L 11/12/2013 CHEM 14 3237356 ALT 14 IU/L 11/12/2013 CHEM 14 9139909 BUN 14 MG/DL 11/12/2013 CHEM 14 7712328 ALBUMIN 4.3 GM/DL 11/12/2013 CHEM 14 5508166 CHLORIDE 101 MMOL/L 11/12/2013 CHEM 14 2923122 BILI TOT 0.9 MG/DL 11/12/2013 CHEM 14 9463409 ALK PHOS 67 U/L 11/12/2013 CHEM 14 4740323 SODIUM 139 MMOL/L 11/12/2013 CHEM 14 7152607 CREATINI NE 0.67 MG/DL 11/12/2013 CHEM 14 0214516 CALCIUM 9.5 MG/DL 11/12/2013 CHEM 14 0744551 POTASSIUM 4.1 MMOL/L 11/12/2013 CHEM 14 6341240 PROT TOT 6.5 GM/DL 11/12/2013 CHEM 14 2354840 GLUCOSE 102 MG/DL 11/12/2013 CHEM 14 4098631 BICARB 30 MMOL/L 11/12/2013 CHEM 14 8414557 ANION GAP 8 MEQ/L 11/12/2013 GFR CALC 0997088 GFR AA >60 ML/MIN 11/12/2013 GFR CALC 9815498 GFR NON -AA >60 ML/MIN 11/12/2013 TSH 5606836 TSH 2.445 uIU/ML 11/12/2013 FREE T4 0850327 FREE T4 1.09 NG/DL 11/12/2013 CBC 8776130 WBC 7.6 10e9/L 11/12/2013 CBC 6158461 RBC 4.42 10e12/L 11/12/2013 CBC 6058483 HGB 13.1 g/dL 11/12/2013 CBC 3077546 HCT DET 41.2 % 11/12/2013 CBC 6842472 MCV 93.2 fL 11/12/2013 CBC 1234261 MCH 29.6 pg 11/12/2013 CBC 0895752 MCHC 31.8 g/dL 11/12/2013 CBC 5657277 PLT 314 10e9/L 11/12/2013 CBC 3637386 MPV 10.4 fL 11/12/2013 CBC 8119066 NNEKA % 59.8 % 11/12/2013 CBC 8845997 LY % 28.1 % 11/12/2013 CBC 4836368 MON % 9.5 % 11/12/2013 CBC 5165808 EOS % 1.8 % 11/12/2013 CBC 5339883 BASO % 0.8 % 11/12/2013 CBC 0090517 RDW 13.8 % 11/12/2013 CBC 2838280 ABS NNEKA 4.54 10e9/L 11/12/2013 CBC 5406718 ABS LYMPH 2.14 10e9/L 11/12/2013 CBC 5659944 ABS MONO 0.72 10e9/L 11/12/2013 CBC 7432500 ABS EOS 0.14 10e9/L 11/12/2013 CBC 8804264 ABS BASO 0.06 10e9/L 11/12/2013 CBC 1725147 RDW-SD 46.0 fL 11/12/2013 LIPID GRP 0509033 HDL TE ST 66 MG/DL 11/12/2013 LIPID GRP TRIG 130 MG/DL 11/12/2013 LIPID GRP TEST L DL 108 MG/DL 11/12/2013 LIPID GRP CHOL 200 MG/DL 11/12/2013 LIPID GRP RCHOL/ HDL 3.03 RATIO 11/12/2013 HS ENE ZOS 5751656 HS VA R ZOS IMMUNE 04/04/2013 A1C 6877728 A1C HPLC 08267-2 5.2 % 04/03/2013 GFR CALC 4528951 GFR AA >60 ML/MIN 03/31/2013 GFR CALC 0353791 GFR NON -AA >60 ML/MIN 03/31/2013 TSH 4625116 TSH 2.689 uIU/ML 03/31/2013 LIPID GRP HDL TE ST 63 MG/DL 03/31/2013 LIPID GRP TRIG 157 MG/DL 03/31/2013 LIPID GRP TEST L DL 98 MG/DL 03/31/2013 LIPID GRP CHOL 192 MG/DL 03/31/2013 LIPID GRP RCHOL/ HDL 3.05 RATIO 03/31/2013 FREE T4 2371070 FREE T4 1.19 NG/DL 03/31/2013 CHEM 14 1707352 AST 16 U/L 03/31/2013 CHEM 14 1607725 ALT 12 IU/L 03/31/2013 CHEM 14 6160268 BUN 17 MG/DL 03/31/2013 CHEM 14 8396271 ALBUMIN 4.5 GM/DL 03/31/2013 CHEM 14 6302768 CHLORIDE 98 MMOL/L 03/31/2013 CHEM 14 7293767 BILI TOT 0.7 MG/DL 03/31/2013 CHEM 14 5177147 ALK PHOS 53 U/L 03/31/2013 CHEM 14 5728794 SODIUM 137 MMOL/L 03/31/2013 CHEM 14 6874203 CREATINI NE 0.66 MG/DL 03/31/2013 CHEM 14 9652486 CALCIUM 9.6 MG/DL 03/31/2013 CHEM 14 6348820 POTASSIUM 4.2 MMOL/L 03/31/2013 CHEM 14 1867661 PROT TOT 6.7 GM/DL 03/31/2013 CHEM 14 5945592 GLUCOSE 101 MG/DL 03/31/2013 CHEM 14 0801027 BICARB 33 MMOL/L 03/31/2013 CHEM 14 1757624 ANION GAP 6 MEQ/L 03/31/2013 CBC 7992849 WBC 7.5 10e9/L 03/31/2013 CBC 6845934 RBC 4.39 10e12/L 03/31/2013 CBC 8644088 HGB 13.0 g/dL 03/31/2013 CBC 8292832 HCT DET 40.2 % 03/31/2013 CBC 7784592 MCV 91.6 fL 03/31/2013 CBC 8427870 MCH 29.6 pg 03/31/2013 CBC 2396542 MCHC 32.3 g/dL 03/31/2013 CBC 0066268 PLT 305 10e9/L 03/31/2013 CBC 5052340 MPV 10.4 fL 03/31/2013 CBC 2276531 NNEKA % 56.8 % 03/31/2013 CBC 6704342 LY % 30.3 % 03/31/2013 CBC 7413143 MON % 9.8 % 03/31/2013 CBC 2951965 EOS % 2.3 % 03/31/2013 CBC 6420879 BASO % 0.8 % 03/31/2013 CBC 0199770 RDW 13.2 % 03/31/2013 CBC 9875921 ABS NNEKA 4.26 10e9/L 03/31/2013 CBC 0401174 ABS LYMPH 2.27 10e9/L 03/31/2013 CBC 1390595 ABS MONO 0.74 10e9/L 03/31/2013 CBC 8125629 ABS EOS 0.17 10e9/L 03/31/2013 CBC 9547083 ABS BASO 0.06 10e9/L 03/31/2013 CBC 0306712 RDW-SD 43.2 fL 03/31/2013 LIPID GRP HDL TE ST 49 MG/DL 09/11/2012 LIPID GRP TRIG 134 MG/DL 09/11/2012 LIPID GRP TEST L DL 81 MG/DL 09/11/2012 LIPID GRP CHOL 157 MG/DL 09/11/2012 LIPID GRP RCHOL/ HDL 3.20 RATIO 09/11/2012 TSH 7956425 TSH 2.118 uIU/ML 09/11/2012 CBC 7449810 WBC 7.5 10e9/L 09/11/2012 CBC 1338425 RBC 3.99 10e12/L 09/11/2012 CBC 5263845 HGB 11.7 g/dL 09/11/2012 CBC 2768151 HCT DET 37.7 % 09/11/2012 CBC 8374171 MCV 94.5 fL 09/11/2012 CBC 0146762 MCH 29.3 pg 09/11/2012 CBC 4858888 MCHC 31.0 g/dL 09/11/2012 CBC 5869501 PLT 384 10e9/L 09/11/2012 CBC 5881486 MPV 11.0 fL 09/11/2012 CBC 6093355 NNEKA % 51.7 % 09/11/2012 CBC 2267235 LY % 35.2 % 09/11/2012 CBC 8939918 MON % 10.4 % 09/11/2012 CBC 2188648 EOS % 2.3 % 09/11/2012 CBC 0307512 BASO % 0.4 % 09/11/2012 CBC 8511970 RDW 14.2 % 09/11/2012 CBC 2124420 ABS NNEKA 3.88 10e9/L 09/11/2012 CBC 2894480 ABS LYMPH 2.64 10e9/L 09/11/2012 CBC 9916996 ABS MONO 0.78 10e9/L 09/11/2012 CBC 4080024 ABS EOS 0.17 10e9/L 09/11/2012 CBC 7755278 ABS BASO 0.03 10e9/L 09/11/2012 CBC 3291889 RDW-SD 47.1 fL 09/11/2012 CHEM 14 5535456 AST 16 U/L 09/11/2012 CHEM 14 0609726 ALT 15 IU/L 09/11/2012 CHEM 14 2961889 BUN 11 MG/DL 09/11/2012 CHEM 14 9212189 ALBUMIN 4.2 GM/DL 09/11/2012 CHEM 14 1946928 CHLORIDE 101 MMOL/L 09/11/2012 CHEM 14 6959778 BILI TOT 0.8 MG/DL 09/11/2012 CHEM 14 5847759 ALK PHOS 57 U/L 09/11/2012 CHEM 14 4317737 SODIUM 141 MMOL/L 09/11/2012 CHEM 14 6601349 CREATINI NE 0.62 MG/DL 09/11/2012 CHEM 14 3687045 CALCIUM 9.5 MG/DL 09/11/2012 CHEM 14 6617873 POTASSIUM 4.7 MMOL/L 09/11/2012 CHEM 14 8052132 PROT TOT 6.6 GM/DL 09/11/2012 CHEM 14 3714635 GLUCOSE 90 MG/DL 09/11/2012 CHEM 14 3821896 BICARB 32 MMOL/L 09/11/2012 CHEM 14 8119488 ANION GAP 8 MEQ/L 09/11/2012 A1C HPLC 1639802 A1C HPLC 19516-2 4.5 % 09/11/2012 GFR CALC 9773558 GFR AA >60 ML/MIN 09/11/2012 GFR CALC 4103684 GFR NON -AA >60 ML/MIN 09/11/2012 FREE T4 5638565 FREE T4 1.30 NG/DL 09/11/2012 BMP 5716703 GLUCOSE 93 MG/DL 04/16/2012 BMP 1433730 CREATININE 0.64 MG/DL 04/16/2012 BMP 3410726 BUN 12 MG/DL 04/16/2012 BMP 8452538 SODIUM 139 MMOL/L 04/16/2012 BMP 1023067 POTASSIUM 4.1 MMOL/L 04/16/2012 BMP 9487857 CHLORIDE 99 MMOL/L 04/16/2012 BMP 2281777 BICARB 32 MMOL/L 04/16/2012 BMP 6999701 ANION GAP 8 MEQ/L 04/16/2012 BMP 5512987 CALCIUM 9.8 MG/DL 04/16/2012 CBC 5955914 WBC 8.5 10e9/L 04/16/2012 CBC 8133296 RBC 3.98 10e12/L 04/16/2012 CBC 1337563 HGB 11.5 g/dL 04/16/2012 CBC 3968583 HCT DET 36.7 % 04/16/2012 CBC 7582312 MCV 92.2 fL 04/16/2012 CBC 2115956 MCH 28.9 pg 04/16/2012 CBC 1328239 MCHC 31.3 g/dL 04/16/2012 CBC 1814970 PLT 321 10e9/L 04/16/2012 CBC 0120406 MPV 10.2 fL 04/16/2012 CBC 4870335 NNEKA % 64.3 % 04/16/2012 CBC 5482465 LY % 24.3 % 04/16/2012 CBC 3946933 MON % 9.0 % 04/16/2012 CBC 9575771 EOS % 1.9 % 04/16/2012 CBC 0486497 BASO % 0.5 % 04/16/2012 CBC 8417602 RDW 13.7 % 04/16/2012 CBC 2661060 ABS NNEKA 5.47 10e9/L 04/16/2012 CBC 9666977 ABS LYMPH 2.07 10e9/L 04/16/2012 CBC 0387868 ABS MONO 0.77 10e9/L 04/16/2012 CBC 6483488 ABS EOS 0.16 10e9/L 04/16/2012 CBC 2254079 ABS BASO 0.04 10e9/L 04/16/2012 CBC 2175732 RDW-SD 44.6 fL 04/16/2012 GFR CALC 1677389 GFR AA >60 ML/MIN 04/16/2012 GFR CALC 6906943 GFR NON -AA >60 ML/MIN 04/16/2012 URINALYSIS NONAUTO W/O SCOPE 01212 Specific [place] 1.015 DateTime(Free Text in Aprima) URINALYSIS NONAUTO W/O SCOPE 52395 PH 6.0 DateTime(Free Jim t in Apr)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 LEVEL III Diagnosis: ESSENTIAL HYPERTENSION[SNOMED: 38748940] Diagnosis: EDEMA[ICD9: 782.3] [facility] CPT-4: 97191 01/06/2013 ([id number]) 90156 EST. P ATIENT, LEVEL III Diagnosis: UNSPECIFIED ASTHMA[ICD9: 493.90] Diagnosis: Cough[ICD9: 786.2] Diagnosis: ALLERGIC RHINITIS[ICD9: 477.9] Concepción Flanagan MD, [facility] CPT-4: 52219 11/21/2012 ([id number]) 88840 EST. P ATIENT, LEVEL IV Diagnosis: ESSENTIAL HYPERTENSION[SNOMED: 24047706] Diagnosis: EDEMA[ICD9: 782.3] Concepción Flanagan MD, [facility] CPT-4: 56363 10/28/2012 ([id number]) 70948 EST. P ATIENT, LEVEL IV Diagnosis: ESSENTIAL HYPERTENSION[SNOMED: 20470931] Diagnosis: EDEMA[ICD9: 782.3] Diagnosis: Knee pain, right[ICD9: 719.46] Diagnosis: Urge incontinence[ICD9: 788.31] Concepción Flanagan MD, [facility] CPT-4: 63953 09/30/2012 ([id number]) 02652 EST. P ATIENT, LEVEL III Diagnosis: ESSENTIAL HYPERTENSION[SNOMED: 18527559] Concepción Fl[facility]agan [facility] CPT-4: 35714 08/14/2012 ([id number]) 73081 EST. P ATIENT, LEVEL III Diagnosis: CELLULITIS OF LEG[ICD9: 682.6] Concepción Flanagan MD, [facility] CPT-4: 75299 08/05/2012 ([id number]) 61281 EST. P ATIENT, LEVEL IV Diagnosis: ESSENTIAL HYPERTENSION[SNOMED: 61467667] Diagnosis: EDEMA[ICD9: 782.3] Diagnosis: Constipation[ICD9: 564.00] Concepción Flanagan MD, [facility] CPT-4: 90121 07/15/2012 ([id number]) 99784 EST. P ATIENT, LEVEL III Diagnosis: Subungual contusion of toenail[ICD9: 924.3] Concepción Flanagan MD[facility] CPT-4: 94272 05/27/2012 Postop follow up vis it related to original px Diagnosis: BENIGN ERLINDA SKIN ARM[ICD9: 216.6] Diagnosis: BENIGN ERLINDA SKIN TRUNK[ICD9: 216.5] Concepción Flanagan MD, [facility] CPT- 4: 17892 05/03/2012 ([id number]) 68886 EST. P ATIENT, LEVEL IV Diagnosis: ESSENTIAL HYPERTENSION[SNOMED: 56654843] Diagnosis: OA (osteoarthritis) of knee[ICD9: 715.96] Diagnosis: EDEMA[ICD9: 782.3] Concepción Flanagan MD, [facility] CPT-4: 94078 03/25/2012 80577 EST. PATIENT, LEVEL IV Diagnosis: ESSENTIAL HYPERTENSION[SNOMED: 36262652] Diagnosis: Abdominal bloating[ICD9: 787.3] Concepción Flanagan MD, [facility] CPT-4: 87126 03/12/2012 ([id number]) 45760 EST. P ATIENT, LEVEL IV Diagnosis: ESSENTIAL HYPERTENSION[SNOMED: 52911431] Diagnosis: EDEMA[ICD9: 782.3] Concepción Flanagan MD, [facility] CPT-4: 07634 01/23/2012 ([id number]) 36591 EST. P ATIENT, LEVEL III Diagnosis: Breast pain, left[ICD9: 611.71] Chaparrita Flanagan MD, [facility] CPT- 4: 30133 01/12/2012 ([id number]) 93047 EST. P ATIENT, LEVEL IV Diagnosis: ESSENTIAL HYPERTENSION[SNOMED: 93770408] Diagnosis: DEPRESSIVE DISORDER NEC[ICD9: 311] Diagnosis: ANXIETY STATE[ICD9: 300.00] Concepción Flanagan MD, [facility] CPT-4: 37917 12/25/2011 ([id number]) 09867 EST. P ATIENT, LEVEL IV Diagnosis: ESSENTIAL HYPERTENSION[SNOMED: 49561483] Diagnosis: EDEMA[ICD9: 782.3] Concepción Flanagan MD, [facility] CPT-4: 15604 12/04/2011 ([id number]) 74716 EST. P ATIENT, LEVEL IV Diagnosis: ESSENTIAL HYPERTENSION[SNOMED: 69358707] Diagnosis: DEPRESSIVE DISORDER NEC[ICD9: 311] Concepción Flanagan MD, [facility] CPT- 4: 81234 09/20/2011 29346 EST. PATIENT, LEVEL IV Diagnosis: Dysuria[ICD9: 788.1] Diagnosis: ESSENTIAL HYPERTENSION[SNOMED: 33093900] Diagnosis: Anxiety[ICD9: 300.00] Concepción Flanagan MD, [facility] CPT-4: 20825 09/06/2011 ([id number]) 57134 EST. P ATIENT, LEVEL IV Diagnosis: LUMBAGO[ICD9: 724.2] Diagnosis: ESSENTIAL HYPERTENSION[SNOMED: 33063947] Concepción Flanagan MD, [facility] CPT-4: 20074 08/30/2011 09595 EST. PATIENT, LEVEL III Diagnosis: ACUTE SINUSITIS[ICD9: 461.9] Diagnosis: Urinary frequency[ICD9: 788.41] Chaparrita Flanagan MD, [facility] CPT- 4: 48415 08/23/2011 08463 EST. PATIENT, LEVEL III Diagnosis: Lesion of labia[ICD9: 624.8] Chaparrita Flanagan MD, [facility] CPT- 4: 03047 08/09/2011 62841 EST. PATIENT, LEVEL IV Diagnosis: HYPOTHYROIDISM[ICD9: 244.9] Diagnosis: HYPERLIPIDEMIA[ICD9: 272.4] Diagnosis: BP (high blood pressure)[SNOMED: 42855108] Diagnosis: Knee pain, bilateral[ICD9: 719.46] Diagnosis: ESOPHAGEAL REFLUX[ICD9: 530.81] Concepción Flanagan MD, [facility] CPT-4: 90601 05/04/2011 07578 EST. PATIENT, LEVEL III Diagnosis: ACUTE URI[ICD9: 465.9] Diagnosis: Asthma[ICD9: 493.90] Diagnosis: Esophageal reflux[ICD9: 530.81] Chaparrita Flanagan MD, [facility] CPT- 4: 53506 04/19/2011 Plan of Care Planned Activity Notes C odes Status Date Visit Plan: Sinusitis - Pt has acut [...] today 03/11/2019 [facility]ointment[phone] (15 min) Moderate 03/11/2019 Patient Education: Patient [...] this time. 09/03/2018 Appointment: [facility]agan [phone] [facility] [place] (15 min) Moderate 09/03/2018 Patient Education: [...] back. 05/29/2018 Appointment: Concepción Flanagan WPtel: [facility] (15 min) Moderate 05/29/2018 Patient Education: Patient Medication Summary Completed 05/29/2018 Care Plan: Referral Order SNOMED-CT : 139601616 Pending 05/29/2018 Visit Plan: Wound Instructions - [...] removal process. 02/06/2018 Appointment: Hayley London WPtel: [address] [place], [place] [id number] (15 min) Moderate 02/06/2018 Patient Education: Patient [...] to medications. 01/23/2018 Appointment: Concepción Flanagan WPtel: [facility] (15 min) Moderate 01/23/2018 Patient Education: Patient Medication Summary Completed 01/23/2018 Visit Plan: Cough - improved - sinu sitis resolved. 09/26/2017 Appointment: Concepción Flanagan WPtel[facility] [address] [facility] (15 min) Moderate 09/26/2017 Patient Education: Patient Medication Summary Completed 09/26/2017 Visit Plan: Acute Maxillary Sinusit is - if not improving - pt would like to see an ENT - [facility] Tompkins in [place]. Treatment as follows: cefdinir - antibiotic twice [...] 09/12/2017 Appointment: Concepc[facility] Flanagan [phone] [facility] (15 min) Moderate 09/12/2017 Patient [...] allergy spray. 08/31/2017 Appointment: Hayley London WPtel: [phone] [facility] (30 min) Complex 08/31/2017 Patient Education: Patient Medication Summary Completed 08/31/2017 Visit Plan: URI - Pt advised to inc rease fluids, vitamin C. Discussed natural and expected course of this diagnosis and need to alert me if symptoms do not follow expected course, or if any worse. RX sent to patient's pharmacy. 08/09/2017 Appointment: Chaparrita Arrieta WPtel: [phone] [phone] (30 min) Complex 08/09/2017 Patient Education: [...] refilled hydrocodone. 05/07/2017 Appointment: Concepc[facility] Flanagan [facility]Ptel[phone] [facility] (15 min) Moderate 05/07/2017 Patient [...] surrogate. 04/12/2017 [facility]ment: [phone] [facility] - Annual Wellness Visit 04/12/2017 Patient Education: Patient Medication Summary Completed 04/12/2017 Appointment: Nurse Visit 02/15/2017 Patient Education: Patient Medication Summary Completed 02/15/2017 Visit Plan: Hxcdd-xwjmttcrxv-ariqe zpack when finished with cipro-follow up chest [...] up Sunday02/02/2017 Appointment: Chaparrita Arrieta WPtel[phone] [facility] (15 min) Moderate 02/02/2017 Patient Education: Patient Medication Summary Completed 02/02/2017 Patient Education: Obesity Completed 02/02/2017 Visit Plan: Sinusitis - Pt has acut e infection - pain in face, maxillary region, Pt informed to use decongestant, RX given to patient, sinus rinses also recommended. Call if symptoms do not show improvement. 01/15/2017 Appointment: Chaparrita Arrieta WPtel[phone] [facility] (10 min) Simple 01/15/2017 Patient Education: [...] today 01/04/2017 Appointment: Concepción Flanagan WPtel: [phone] [facility] (15 min) Moderate 01/04/2017 Patient Education: [...] (lexapro). 09/07/2016 Appointment: Concepción Flanagan WPtel: [facility] (30 min) Complex 09/07/2016 Patient [...] home. 07/06/2016 Appointment: Concepción Flanagan WPtel: [facility] (15 min) Moderate 07/06/2016 Patient [...] DAILY 06/08/2016 Appointment: Concepción Flanagan WPtel: [facility] [place] (15 min) Moderate 06/08/2016 Patient Education: [...] peripheral edema. 04/06/2016 Appointment: Concepción Flanagan WPtel: [phone] [facility] [place] (15 min) Moderate 04/06/2016 Patient Education: Patient [...] for Mikala. 01/18/2016 Appointment: Concepción Flanagan WPtel: [address] [place] [address] (15 min) Moderate 01/18/2016 Patient Education: Patient [...] fatigue improved-will fax today's note to [facility] for re- certification of oxygen. 09/09/2015 Visit [...] fatigue improved-will fax today's note to [facility] for re- certification of oxygen. 09/09/2015 Appointment: [...] discuss with her son who is a Perfect Binder Operator - and consider re-evaluation for nasal pillows with her cpap since she could not tolerate a face mask cpap in the past. 12/25/2014 Appointment: Concepción Flanagan WPtel: [facility] Follow up 12/25/2014 Patient Education: Patient [...] home. 10/13/2014 Appointment: Concepción Flanagan WPtel: [phone] [facility] Follow up 10/13/2014 Patient Education: Patient [...] . 08/28/2014 Appointment: Concepción Flanagan WPtel: [phone] [facility] Follow up 08/28/2014 Patient Education: Patient [...] creatinine. 04/16/2014 Appointment: Concepción Flanagan WPtel: [phone] [facility] Follow up 04/16/2014 Patient Education: Patient Medication Summary Completed 04/16/2014 Patient Education: Patient Medication Summary Completed 04/14/2014 Patient Education: Hypertension Completed 04/14/2014 Visit Plan: Wound Instructions - Pt was instruced to keep the wound clean, wash with antibacterial soap, use triple antibiotic ointment, call if redness, pustular drainage, or any other acute conerns. 01/27/2014 Appointment: Concepción Flanagan WPtel[phone] [facility] Surgical Procedure 01/27/2014 Patient Education: Patient [...] eval. 01/21/2014 Appointment: Concepción Flanagan WPtel: [phone] [place] [phone] Follow up 01/21/2014 Patient Education: Patient Medication Summary Completed 01/21/2014 Patient Education: Hypertension Completed 01/21/2014 Visit Plan: Hypotension - Bradycard ia - pt to stop her metroprolol - check bp and heart rate twice daily and monitor symptoms. Call if bp uncontrolled- or heart rate to elevated. 01/07/2014 Appointment: Concepción Flanagan WPtel: [phone] [facility] Follow up 01/07/2014 Patient Education: Hypertension [...] swallow 11/12/2013 Appointment: Chaparrita Arrieta WPtel: [phone] [phone] [facility] 11/12/2013 Patient Education: Patient Medication Summary Completed 11/12/2013 Patient Education: Hypertension Completed 11/12/2013 Visit Plan: Sinusitis - Pt has acut e infection - pain in face, maxillary region, Pt informed to use decongestant, RX given to patient, sinus rinses also recommended. Call if symptoms do not show improvement. 10/09/2013 Appointment: Chaparrita Arrieta WPtel: [phone] [phone] [place] [address] 10/09/2013 Patient Education: Patient Medication Summary Completed [...] UA 04/03/2013 Appointment: Concepción Flanagan WPtel: [facility]5 [facility] Follow up 04/03/2013 Patient Education: Patient Medication Summary Completed 04/03/2013 Patient Education: Hypertension Completed 04/03/2013 Patient Education: Patient Medication Summary Completed 03/31/2013 Patient Education: Hypertension Completed 03/31/2013 Visit Plan: ua performed - sent for culture if indicated. 03/21/2013 Appointment: Concepción Flanagan WPtel: [facility] Lab Draw 03/21/2013 Patient Education: [...] peripheral edema. 01/06/2013 Appointment: Concepción Flanagan WPtel: [facility] Follow up 01/06/2013 Patient Education: Patient Medication Summary Completed 01/06/2013 Patient Education: Hypertension Completed 01/06/2013 Visit Plan: Neczcqwhb-Qssjqd-ozdmhs ms not well controlled- KENALOG injection today [...] edema. 10/28/2012 Appointment: Concepción Flanagan WPtel: [phone] [facility] Follow up 10/28/2012 Patient Education: [...] treatment recommendations. 09/30/2012 Appointment: Concepc[facility] Flanagan [facility]Ptel: [phone] Follow up 09/30/2012 Patient Education: Patient Medication Summary Completed 09/30/2012 Patient Education: Hypertension Completed 09/30/2012 Appointment: Concepción Flanagan WPtel: [phone] [facility] Lab Draw 09/11/2012 Patient Education: Patient [...] - resolved 08/14/2012 Appointment: Concepción Flanagan WPtel: [facility]5 [facility] Follow up 08/14/2012 Patient Education: Patient Medication Summary Completed 08/14/2012 Patient Education: Hypertension Completed 08/14/2012 Visit Plan: Cellulitis - start with generic Bactrim DS as directed, return to clinic as previously directed, call for acute change in symptoms, worsening redness, warmth, discharge. 08/05/2012 Appointment: Concepción Flanagan WPtel: [facility] Follow up 08/05/2012 Patient Education: Patient [...] soften stools. 07/15/2012 Appointment: Concepción Flanagan WPtel: [phone] [facility] [facility] follow up 07/15/2012 Patient Education: Patient Medication Summary Completed 07/15/2012 Patient Education: Hypertension Completed 07/15/2012 Visit Plan: Subungual discoloratiio n of toenail- October 15 th pt is to see Dr. Rohit - I have discussed the case with the pt and Dr. bee and she will likely have a biopsy of the digit and avulsion of the nail. 05/27/2012 Appointment: Concepción Flanagan WPtel: [facility]5 [facility] Other 05/27/2012 Patient Education: Patient Medication Summary Completed 05/27/2012 Appointment: Chaparrita Arrieta WPtel: [facility]5 [phone] Follow up 05/16/2012 Visit Plan: Obesity [...] vaccine 05/03/2012 Appointment: Chaparrita Arrieta WPtel: [facility]5 [phone] Follow up 05/03/2012 Patient Education: Patient Medication Summary Completed 05/03/2012 Visit Plan: Wound Instructions - Pt was instruced to keep the wound clean, wash with antibacterial soap, use triple antibiotic ointment, call if redness, pustular drainage, or any other acute conerns. 04/23/2012 Appointment: Concepción Flanagan WPtel: [facility]5 [facility] Surgical Procedure 04/23/2012 Patient Education: Patient Medication Summary Completed 04/23/2012 Appointment: Concepción Flanagan WPtel: [phone] [facility] Lab Draw 04/16/2012 Patient Education: Patient [...] readings at home. Recommend follow up with biblical studies professor for clearance before knee surgery. Will get [...] to thighs. 03/25/2012 Appointment: Concepción Flanagan WPtel: [phone] [facility] Other 03/25/2012 Patient Education: Patient Medication [...] lesion. 03/12/2012 Appointment: Chaparrita Arrieta WPtel: [phone] [phone] Other 03/12/2012 Patient Education: Patient Medication Summary [...] home. 01/23/2012 Appointment: Concepción Flanagan WPtel: [facility]5 [place] [phone] Other 01/23/2012 Patient Education: Patient Medication Summary Completed 01/23/2012 Patient Education: High Blood Pressure: Essential Hypertension Completed 01/23/2012 Visit Plan: Breast ptzu-ecvy-bqaldv sed natural and expected course of this diagnosis and to alert me if symptoms do not follow expected course, or if any worse. Plan for diagnostic mammogram, in meantime, instructed patient to get more supportive bra, use anti-inflammatories and monitor symptoms. Patient verbalized understanding of plan. 01/12/2012 Appointment: Chaparrita Arrieta WPtel: [phone] [phone] Other 01/12/2012 Patient Education: Patient Medication [...] medications. 12/25/2011 Appointment: [facility] Flanagan [facility]Ptel: [phone] [facility] 12/25/2011 Patient Education: Patient Medication Summary [...] SOCKS. 12/04/2011 Appointment: Concepción Flanagan WPtel: [facility] Other 12/04/2011 Patient Education: Patient Medication Summary Completed 12/04/2011 Patient Education: High Blood Pressure: Essential Hypertension Completed 12/04/2011 Appointment: Chaparrita Arrieta WPtel: [phone] [place] Lab Draw 12/01/2011 Patient Education: Patient Medication Summary Completed 12/01/2011 Appointment: Concepción Flanagan WPtel: [address] [place], [place] [address] [place] Lab Draw 11/20/2011 Patient Education: Patient [...] acutely worsen. 09/20/2011 Appointment: Concepción Flanagan WPtel: [address] [place], [place] [address] Other 09/20/2011 Patient Education: Patient Medication Summary Completed 09/20/2011 Patient Education: High Blood Pressure: Essential Hypertension Completed 09/20/2011 Appointment: Concepción Flanagan WPtel: [address] [place] [address] Other 09/13/2011 Visit Plan: Hypertension - The [...] benefits of treament with the above medications. Bdbrmdx-gymyqucc-DV negative 09/06/2011 Appointment: Chaparrita Arrieta WPtel: [phone] [facility] Other 09/06/2011 Patient Education: Patient Medication [...] worsen. 08/30/2011 Appointment: Concepción Flanagan WPtel: [facility] Other 08/30/2011 Patient Education: Patient Medication Summary [...] pharmacy. 08/23/2011 Appointment: Chaparrita Arrieta WPtel: [facility]8 [phone] Other 08/23/2011 Patient Education: Patient Medication Summary Completed 08/23/2011 Visit Plan: Labial cyst-discussed n atural and expected course of this diagnosis and to alert me if symtpoms do not follow expected course, or if any worse. Patient and verbalized understanding. 08/09/2011 Appointment: Chaparrita Arrieta WPtel: [phone] [facility] Other 08/09/2011 Patient Education: Patient Medication Summary [...] improving. 05/04/2011 Appointment: Concepción Flanagan WPtel: [address] [facility] [place] Other 05/04/2011 Patient Education: [...] if symptoms do not improve, or worsen. Chanoalog injection also given in the office today. GERD-pt advised to cut back on caffeine, spicey foods, peppermint, cinnimon, etc. samples given of nexium 40mg daily. 04/19/2011 Appointment: Bern[facility] Chap[facility]rita [facility]el[phone] Other 04/19/2011 Patient Education: Patient Medication [...] twice daily and monitor symptoms. . Breast cwkg-xrjx-ihqiqolkm natural and expected course of this diagnosis [...] discuss with her son who is a Perfect B[employer] - and consider re-evaluation for nasal pillows [...] see an ENT - [facility]ia Tompkins in [place]. Treatment as follows: cefdinir - antibiotic twice [...] do not improve, or if any worse.. Xjuzyhhrw-Cgrpig-yamqonvc not well controlled-KENALOG injection today in the [...] benefits of treament with the above medications. Fpinqhy-qamqelxm-[place] negative . Hypertension - wel l controlled [...] readings at home. Recommend follow up with biblical studies professor for clearance before knee surgery. Will get [...] worse. RX sent to patient's pharmacy. . Qdqse-amhvvmyifl-c tart zpack when finished with cipro- follow [...]
--- OUTSIDE RECORDS SUMMARY | 2020-01-05 01:25 | XMS REPORT | CCD ---
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 Name Role Phone Concepción Flanagan PP Unavailable CCM Unavailable Summary Purpose Interface Exchange Insurance Providers Payer name Policy type / Coverage type Covered constitution party ID Effective Begin Date Effective End Date WPS Medicare Part B Medicare Part B [id number] Unknown AARP Medicare Part B [id number] Unknown Family history Son Diagnosis Age At [...] M arried 04/19/[address]: 2283275 Quit over 10 years ago 40 pack/year [...] Date Stop Date Sta tus Fill Instructions Centrum Silver Ultra Women's tablet RxNorm: Tablet(s) PO No Stop Date Active prednisone 10 mg tablet RxNorm: 692450 2 Tablet(s) PO daily 03/11/2019 03/15/2019 Active doxycycline hyclate 100 mg tablet RxNorm: 9851737 1 Tablet(s) PO BID 03/11/2019 03/20/2019 Active Klor-Con 10 mEq tabl et,extended release RxNorm: 280659 Tablet(s) TAKE ONE TA BLET BY MOUTH DAILY 03/05/2019 11/29/2019 Active Klor-Con 10 mEq tabl et,extended release RxNorm: 603445 Tablet(s) TAKE ONE TA BLET BY MOUTH DAILY 03/05/2019 03/04/2019 Inactive Lasix 40 mg tablet RxNorm: 464063 TAKE ONE TABLET BY MOUTH DAILY 12/24/2018 06/21/2019 Ac tive Crestor 10 mg tablet RxNorm: 827028 TAKE 1 TABLET BY MOUTH ON SUNDAY, , AND Sunday12/03/2018 05/31/2019 Active Atacand 16 mg tablet RxNorm: 218203 1 Tablet(s) PO daily 11/06/2018 10/31/2019 Active replaces benicar Atacand 16 mg tablet RxNorm: 702169 1 Tablet(s) PO daily 11/06/2018 11/05/2018 Inactive replaces benicar meloxicam 15 mg tablet RxNorm: 264381 TAKE ONE TABLET BY MOUTH DAILY 10/08/2018 03/30/2020 Ac tive ProctoCream-HC 2.5 % rectal cream with applicator RxNorm: 486558 APPLY TO AFFECTED AREAS DIRECTED RTL 10/01/2018 No Stop Date Active Cartia XT 240 mg cap chad,extended release RxNorm: 396532 TAKE ONE CAPSULE BY M OUTH DAILY 09/23/2018 09/17/2019 Active Singulair 10 mg tablet RxNorm: 367836 TAKE ONE TABLET BY MOUTH EVERY DAY 09/06/2018 10/30/2019 Ac tive Klor-Con 10 mEq tabl et,extended release RxNorm: 090029 TAKE ONE TABLET BY MO UTH TWICE A DAY 09/06/2018 03/04/2019 Inactive Xanax 0.25 mg tablet RxNorm: 548378 1-2 Tablet(s) PO QHS as needed insomnia 08/26/2018 11/23/2018 In active Voltaren 1 % topical gel RxNorm: 037214 APPLY TWO GRAMS TOPIC ALLY FOUR TIMES A DAY BILATERAL KNEES AND LOWER BACK 06/26/2018 09/23/2018 Inactive Lasix 40 mg tablet RxNorm: 918051 TAKE ONE TABLET BY MOUTH DAILY 06/20/2018 12/16/2018 In active Voltaren 1 % topical gel RxNorm: 066731 2 Gram(s) TOP QID basilia ateral knees and low back 05/29/2018 06/25/2018 Inactive Synthroid 50 mcg tablet RxNorm: 123236 Tablet(s) TAKE ONE TABLET BY MOUTH DAILY 05/17/2018 11/12/2018 In active Synthroid 50 mcg tablet RxNorm: 470939 TAKE ONE TABLET BY MOUTH DAILY 05/16/2018 05/16/2018 In active hydrocodone 5 mg-patrizia taminophen 325 mg tablet RxNorm: 537724 1/2 Tablet(s) PO QID as needed 05/15/2018 06/13/2018 Inactive Keflex 500 mg capsule RxNorm: 748231 1 Capsule(s) PO TID PRN 04/30/2018 05/06/2018 Inactive Silvadene 1 % topica l cream RxNorm: 366510 1 Application TOP BID 04/30/2018 05/09/2018 Inactive Anusol-HC 25 mg rect al suppository RxNorm: 6502915 1 Suppository PRN IN SERT 1 RECTALLY DAILY NEEDED 04/25/2018 No Stop Date Active Colace 100 mg capsule RxNorm: 2793001 1 Capsule(s) PO daily as needed 04/25/2018 No Stop Date Active Silvadene 1 % topica l cream RxNorm: 738002 1 Application TOP BID 04/25/2018 04/29/2018 Inactive meloxicam 15 mg tablet RxNorm: 090768 1 Tablet(s) PO daily TAKE ONE TABLET BY MOUTH ONE TIME A DAY 04/25/2018 10/07/2018 Inactive Benicar 40 mg tablet RxNorm: 192748 TAKE ONE TABLET BY MOUTH DAILY 04/04/2018 11/05/2018 In active Xanax 0.25 mg tablet RxNorm: 437322 1-2 Tablet(s) PO QHS as needed insomnia 03/07/2018 06/04/2018 In active Lasix 40 mg tablet RxNorm: 137256 TAKE ONE TABLET BY MOUTH DAILY 01/07/2018 06/19/2018 In active Crestor 10 mg tablet RxNorm: 715225 TAKE 1 TABLET BY MOUTH ON SUNDAY, , AND Sunday11/20/2017 05/18/2018 Inactive Synthroid 50 mcg tablet RxNorm: 860589 TAKE ONE TABLET BY MOUTH DAILY 11/14/2017 05/12/2018 In active Diflucan 150 mg tablet RxNorm: 998262 1 Tablet(s) PO daily 09/12/2017 09/25/2017 Inactive cefdinir 300 mg capsule RxNorm: 087704 1 Capsule(s) PO BID 09/12/2017 09/25/2017 Inactive Cartia XT 240 mg cap chad,extended release RxNorm: 537430 TAKE ONE CAPSULE BY [facility] DAILY 09/12/2017 09/06/2018 Inactive prednisone 20 mg tablet RxNorm: 068889 2 Tablet(s) PO daily 08/31/2017 09/04/2017 Inactive Xanax 0.25 mg tablet RxNorm: 989280 1-2 Tablet(s) PO QHS as needed insomnia 08/28/2017 11/24/2017 In active Keflex 500 mg capsule RxNorm: 830603 1 Capsule(s) PO TID 08/28/2017 08/27/2017 Inactive Keflex 500 mg capsule RxNorm: 311942 1 Capsule(s) PO TID 08/28/2017 09/03/2017 Inactive Klor-Con 10 mEq tabl et,extended release RxNorm: 180806 TAKE ONE TABLET BY [facility] TWICE A DAY 08/23/2017 08/17/2018 Inactive cefdinir 300 mg capsule RxNorm: 881149 1 Capsule(s) PO BID 08/13/2017 08/12/2017 Inactive cefdinir 300 mg capsule RxNorm: 525861 1 Capsule(s) PO BID 08/13/2017 08/19/2017 Inactive Kenalog 40 mg/mL heaven pension for injection RxNorm: 0235018 1 Milliliter(s) Inj 08/09/2017 08/09/2017 In active ceftriaxone 500 mg s olution for injection RxNorm: 8397357 Inj 08/09/2017 08/09/2017 Inactive Zithromax Z-Hebert 250 mg tablet RxNorm: 378340 1 Tablet(s) PO UD 08/09/2017 08/13/2017 Inactive Singulair 10 mg tablet RxNorm: 238295 TAKE ONE TABLET BY MOUTH EVERY DAY 08/03/2017 09/05/2018 In active Xanax 0.25 mg tablet RxNorm: 514343 1-2 Tablet(s) PO QHS as needed insomnia 07/25/2017 05/28/2018 In active Benicar 40 mg tablet RxNorm: 575773 TAKE ONE TABLET BY MOUTH DAILY 07/09/2017 04/03/2018 In active Lasix 40 mg tablet RxNorm: 213750 TAKE ONE TABLET BY MOUTH DAILY 07/09/2017 01/04/2018 In active Synthroid 50 mcg tablet RxNorm: 498068 1 Tablet(s) PO daily TAKE ONE TABLET BY MOUTH DAILY 05/21/2017 11/13/2017 Inactive Must be name brand Lasix 40 mg tablet RxNorm: 787920 TAKE ONE TABLET BY MOUTH DAILY 04/12/2017 07/08/2017 In active Zithromax Z-Hebert 250 mg tablet RxNorm: 418068 1 Tablet(s) PO UD 02/05/2017 02/09/2017 Inactive start with finished with cipro Cipro 500 mg tablet RxNorm: 380759 1 Tablet(s) PO BID 02/01/2017 02/07/2017 Inactive prednisone 20 mg tablet RxNorm: 839238 1 Tablet(s) PO BID 01/15/2017 01/19/2017 Inactive take 1 in the morning and 1 at noon calcium carbonate 60 0 mg calcium (1,500 mg) tablet RxNorm: 880212 1 Tablet(s) PO daily 01/04/2017 No Stop Date Active Kenalog 40 mg/mL heaven pension for injection RxNorm: 0225603 1 Milliliter(s) Inj 01/04/2017 01/04/2017 In active Anusol-HC 25 mg rect al suppository RxNorm: 7702510 1 Suppository PRN IN SERT 1 RECTALLY DAILY NEEDED 01/04/2017 04/03/2017 Inactive Lasix 40 mg tablet RxNorm: 298216 TAKE ONE TABLET BY MOUTH DAILY 12/20/2016 04/11/2017 In active Cartia XT 240 mg cap chad,extended release RxNorm: 486555 TAKE ONE CAPSULE BY M [facility] DAILY 12/20/2016 09/11/2017 Inactive Synthroid 50 mcg tablet RxNorm: 009633 1 Tablet(s) PO daily TAKE ONE TABLET BY MOUTH DAILY 11/27/2016 05/20/2017 Inactive Must be name brand meloxicam 15 mg tablet RxNorm: 476428 Tablet(s) TAKE ONE TABLET BY MOUTH ONE T MARÍA ELENA A DAY 11/27/2016 06/24/2017 Inactive Crestor 10 mg tablet RxNorm: 248045 TAKE 1 TABLET BY MOUTH ON SUNDAY, , AND Sunday11/13/2016 10/14/2017 Inactive Lexapro 10 mg tablet RxNorm: 110591 1 Tablet(s) PO daily 09/07/2016 01/03/2017 Inactive please make sure that her RX for lexapro is a 10mg dose - delete the 5mg lexapro pill - this is FYI Klor-Con 10 mEq tabl et,extended release RxNorm: 110663 TAKE ONE TABLET BY MO [facility] TWICE A DAY 08/29/2016 02/24/2017 Inactive Kenalog 40 mg/mL heaven pension for injection RxNorm: 7787131 Milliliter(s) Inj 08/23/2016 08/23/2016 In active cefdinir 300 mg capsule RxNorm: 325722 1 Capsule(s) PO BID 08/22/2016 08/28/2016 Inactive take probiotic while on abx Zithromax Z-Hebert 250 mg tablet RxNorm: 661640 1 Tablet(s) PO UD 08/11/2016 09/06/2016 Inactive Z PACK DIRECTED Lexapro 5 mg tablet RxNorm: 293749 TAKE ONE TABLET BY MOUTH EVERY EVENING 07/18/2016 09/06/2016 In active Singulair 10 mg tablet RxNorm: 053622 TAKE ONE TABLET BY MOUTH EVERY DAY 07/17/2016 08/02/2017 In active Benicar 40 mg tablet RxNorm: 493268 TAKE ONE TABLET BY MOUTH DAILY 07/17/2016 07/08/2017 In active Lexapro 10 mg tablet RxNorm: 764921 1 Tablet(s) PO daily 06/16/2016 09/06/2016 Inactive diltiazem ER 180 mg capsule,extended release RxNorm: 160776 TAKE ONE CAPSULE BY M OUTH DAILY 06/15/2016 07/05/2016 Inactive Lexapro 10 mg tablet RxNorm: 451096 1 Tablet(s) PO daily 06/08/2016 06/15/2016 Inactive gabapentin 600 mg ta blet RxNorm: 720283 TAKE ONE TABLET BY MO UTH EVERY NIGHT AT BEDTIME NEEDED 04/27/2016 04/11/2017 Inactive Cartia XT 240 mg cap chad,extended release RxNorm: 124196 1 Capsule(s) PO daily TAKE ONE CAPSULE BY MOUTH ONCE A DAY 04/17/2016 12/19/2016 Inactive Benicar 40 mg tablet RxNorm: 749601 1 Tablet(s) PO daily 04/17/2016 07/16/2016 Inactive she can do 90 days if she wants to Lexapro 5 mg tablet RxNorm: 388164 1 Tablet(s) PO QPM 03/09/2016 06/07/2016 Inactive Synthroid 50 mcg tablet RxNorm: 289636 1 Tablet(s) PO daily TAKE ONE TABLET BY MOUTH DAILY 01/18/2016 07/15/2016 Inactive Colace 100 mg capsule RxNorm: 1825391 1 Capsule(s) PO daily 01/18/2016 04/24/2018 Inactive hydrocodone 5 mg-patrizia taminophen 325 mg tablet RxNorm: 165808 1/2 Tablet(s) PO QID as needed 01/18/2016 02/16/2016 Inactive Synthroid 50 mcg tablet RxNorm: 247425 Tablet(s) TAKE ONE TABLET BY MOUTH DAILY 12/23/2015 01/17/2016 In active Benicar 40 mg tablet RxNorm: 944604 1 Tablet(s) PO daily 12/13/2015 12/12/2015 Inactive Benicar 40 mg tablet RxNorm: 774516 1 Tablet(s) PO daily 12/13/2015 04/10/2016 Inactive meloxicam 15 mg tablet RxNorm: 415119 TAKE ONE TABLET BY MOUTH ONE TIME A DAY 11/12/2015 06/08/2016 In active meloxicam 15 mg tablet RxNorm: 157306 Tablet(s) TAKE ONE TABLET BY MOUTH ONE T MARÍA ELENA A DAY 11/11/2015 11/11/2015 Inactive Lasix 40 mg tablet RxNorm: 070787 Tablet(s) TAKE ONE TABLET BY MOUTH EVERY DAY 10/19/2015 12/19/2016 Inactive diltiazem ER 180 mg capsule,extended release RxNorm: 229546 1 Capsule(s) daily TA KE ONE CAPSULE BY MOUTH ONCE A DAY 09/27/2015 04/16/2016 Inactive Crestor 10 mg tablet RxNorm: 626610 1 Tablet(s) PO Sun09/17/2015 07/12/2016 Inactive [SAVINGS FOR UNINSURED PATIENTS -- BIN:0 25382, PCN: ASPROD1, Group: [id number], ID# [id number], Process claim through [employer], for questions: . THIS IS NOT INSURANCE.] hydrocodone 5 mg-patrizia taminophen 325 mg tablet RxNorm: 113293 1-2 Tablet(s) PO Q6 P RN 09/09/2015 10/08/2015 In active Micardis 80 mg tablet RxNorm: 071437 1 Tablet(s) PO daily TAKE ONE TABLET BY MOUTH DAILY 08/23/2015 12/12/2015 Inactive Klor-Con 10 mEq tabl et,extended release RxNorm: 938080 Tablet(s) TAKE ONE TA BLET BY MOUTH TWICE A DAY 08/23/2015 02/18/2016 Inactive Synthroid 50 mcg tablet RxNorm: 696518 TAKE ONE TABLET BY MOUTH DAILY 07/06/2015 12/22/2015 In active meloxicam 15 mg tablet RxNorm: 633659 TAKE ONE TABLET BY MOUTH ONE TIME A DAY 06/22/2015 11/10/2015 In active Singulair 10 mg tablet RxNorm: 231169 TAKE ONE TABLET BY MOUTH EVERY DAY 05/18/2015 07/16/2016 In active Micardis 80 mg tablet RxNorm: 955693 TAKE ONE TABLET BY MOUTH DAILY 02/22/2015 05/04/2015 In active gabapentin 600 mg ta blet RxNorm: 189566 1 Tablet(s) PO HS as needed 01/15/2015 01/09/2016 Inactive [SAVINGS FOR NON-COVERED DRUGS -- BIN:00 3585, PCN: ASPROD1, Group: [id number], ID# [id number], Questions: . THIS IS NOT INSURANCE.] diltiazem ER 180 mg capsule,extended release RxNorm: 173776 TAKE ONE CAPSULE BY M OUTH ONCE A DAY 01/07/2015 09/26/2015 Inactive meloxicam 15 mg tablet RxNorm: 050307 TAKE ONE TABLET BY MOUTH ONE TIME A DAY 11/09/2014 05/07/2015 In active gabapentin 600 mg ta blet RxNorm: 124407 1 Tablet(s) PO HS as needed 10/13/2014 01/14/2015 Inactive [SAVINGS FOR UNINSURED PATIENTS -- BIN:0 66933, PCN: ASPROD1, Group: [id number], ID# [id number], Process claim through [employer], for questions: . THIS IS NOT INSURANCE.] omeprazole 20 mg tab let,delayed release RxNorm: 086589 1 Tablet(s) PO daily 10/13/2014 11/11/2014 In active Synthroid 50 mcg tablet RxNorm: 585602 TAKE ONE TABLET BY MOUTH EVERY DAY 10/12/2014 01/09/2015 In active Synthroid 50 mcg tablet RxNorm: 119951 Tablet(s) TAKE ONE TABLET BY MOUTH EVERY DAY 10/12/2014 10/11/2014 Inactive [SAVINGS FOR UNINSURED PATIENTS -- BIN:0 81518, PCN: ASPROD1, Group: [id number], ID# [id number], Process claim through [employer], for questions: . THIS IS NOT INSURANCE.] Lasix 40 mg tablet RxNorm: 831810 Tablet(s) PO TAKE ONE TABLET BY MOUTH TW ICE A DAY FOR 3 DAYS, THEN RESUME ONE DAILY EXCEPT ON WEDNESDAYS AND FRIDAYS TAKE ONE TWICE DAILY 09/22/2014 05/28/2018 Inactive [SAVINGS FOR UNINSURED ARTURO ENTS -- BIN:303376, PCN: ASPROD1, Group: [id number], ID# [id number], Process claim through [employer], for questions: . THIS IS NOT INSURANCE.] Lasix 40 mg tablet RxNorm: 241924 TAKE ONE TABLET BY MOUTH EVERY DAY 09/22/2014 10/18/2015 In active Crestor 10 mg tablet RxNorm: 004940 1 Tablet(s) PO Sun08/28/2014 04/24/2015 Inactive [SAVINGS FOR UNINSURED PATIENTS -- BIN:0 64313, PCN: ASPROD1, Group: [id number], ID# [id number], Process claim through [employer], for questions: . THIS IS NOT INSURANCE.] Crestor 10 mg tablet RxNorm: 494229 1 Tablet(s) PO Sun08/28/2014 08/27/2014 Inactive [SAVINGS FOR UNINSURED PATIENTS -- BIN:0 76553, PCN: ASPROD1, Group: [id number], ID# [id number], Process claim through [employer], for questions: . THIS IS NOT INSURANCE.] Micardis 80 mg tablet RxNorm: 556420 TAKE ONE TABLET BY MOUTH EVERY DAY 08/24/2014 12/21/2014 In active Zithromax Z-Hebert 250 mg tablet RxNorm: 795499 Tablet(s) PO UD 08/14/2014 08/18/2014 Inactive 2 tabs day 1, 1 tabs days 2-5 Anusol-HC 25 mg supp ository RxNorm: 8371927 INSERT 1 RECTALLY DA GUSTAVO NEEDED 07/13/2014 10/10/2014 In active Klor-Con 10 mEq tabl et,extended release RxNorm: 813802 TAKE ONE TABLET BY [facility] TWICE A DAY 06/18/2014 12/14/2014 Inactive Lomotil 2.5 mg-0.025 mg tablet RxNorm: 7161797 1 Tablet(s) PO PRN a fter each loose stool max 8 per day 06/15/2014 10/12/2014 Inactive one after each loose bm juarez it 8 per day albuterol sulfate HF A 90 mcg/actuation aerosol inhaler RxNorm: 6448104 1 or2 Puff(s) INH Q4 PRN as needed 05/11/2014 05/10/2014 Inactive albuterol sulfate HF A 90 mcg/actuation aerosol inhaler RxNorm: 6641449 1 or2 Puff(s) INH Q4 PRN as needed 05/11/2014 01/03/2017 Inactive Premarin 0.625 mg/gr am vaginal cream RxNorm: 891480 1/2 Gram(s) VAG every other day 05/11/2014 12/06/2014 In active Premarin 0.625 mg/gr am vaginal cream RxNorm: 214434 1/2 Gram(s) VAG every other day 05/11/2014 05/10/2014 In active cefdinir 300 mg capsule RxNorm: 677973 1 Capsule(s) PO BID 05/07/2014 05/16/2014 Inactive Rocephin 500 mg solu tion for injection RxNorm: 237537 1 Milliliter(s) Inj 05/07/2014 05/07/2014 In active Singulair 10 mg tablet RxNorm: 263474 TAKE ONE TABLET BY MOUTH EVERY DAY 04/30/2014 10/12/2014 In active meloxicam 15 mg tablet RxNorm: 240978 1 Tablet(s) PO daily 04/16/2014 11/08/2014 Inactive Crestor 10 mg tablet RxNorm: 293769 1 Tablet(s) PO Sun TAKE ONE TAB LET BY MOUTH EVERY DAY 04/16/2014 08/27/2014 Inactive Synthroid 50 mcg tablet RxNorm: 958609 TAKE ONE TABLET BY MOUTH EVERY DAY 04/02/2014 09/28/2014 In active diltiazem ER 180 mg capsule,extended release RxNorm: 581982 1 Capsule(s) PO daily 01/05/2014 12/30/2014 In active Pennsaid 1.5 % topic al drops RxNorm: 855593 Drop(s) TOP APPLY 15 - 20 DROPS TOPICALLY FOUR TIMES A DAY 12/29/2013 01/17/2016 Inactive Rocephin 500 mg solu tion for injection RxNorm: 032192 Inj 12/2612/26/2013 Inactive Kenalog 40 mg/mL heaven pension for injection RxNorm: 5269841 Milliliter(s) Inj 12/26/2013 12/26/2013 In active Micardis 80 mg tablet RxNorm: 191236 Tablet(s) PO TAKE ONE TABLET BY MOUTH EV DEANNA DAY 12/15/2013 08/23/2014 Inactive nystatin 100,000 uni t/mL oral suspension RxNorm: 409748 4 Unit(s) PO QID swis h and swallow 11/12/2013 12/09/2013 Inactive Kenalog 40 mg/mL heaven pension for injection RxNorm: 0960101 Milliliter(s) Inj 11/12/2013 11/12/2013 In active Lasix 40 mg tablet RxNorm: 552139 Tablet(s) PO TAKE ONE TABLET BY MOUTH TW ICE A DAY FOR 3 DAYS, THEN RESUME ONE DAILY EXCEPT ON WEDNESDAYS AND FRIDAYS TAKE ONE TWICE DAILY 10/30/2013 09/21/2014 Inactive Lasix 40 mg tablet RxNorm: 948697 1 Tablet(s) PO daily 10/30/2013 10/29/2013 Inactive Rocephin 500 mg solu tion for injection RxNorm: 985841 1 Milliliter(s) Inj 10/09/2013 10/09/2013 In active metoprolol succinate ER 25 mg tablet,extended release 24 hr RxNorm: 530156 Tablet(s) PO TAKE ONE TABLET BY MOUTH EVERY DAY 10/02/2013 01/06/2014 Inactive metoprolol succinate ER 25 mg tablet,extended release 24 hr RxNorm: 027274 Tablet(s) PO TAKE ONE TABLET BY MOUTH EVERY DAY 08/04/2013 10/01/2013 Inactive Synthroid 50 mcg tablet RxNorm: 144776 Tablet(s) PO TAKE ONE TABLET BY MOUTH EV DEANNA07/14/2013 04/01/2014 Inactive gabapentin 600 mg ta blet RxNorm: 361146 1 Tablet(s) PO Q8 PRN 06/11/2013 06/11/2013 Inactive gabapentin 600 mg ta blet RxNorm: 613427 1 Tablet(s) PO Q8 PRN 06/11/2013 03/07/2014 Inactive Neurontin 600 mg tablet RxNorm: 077527 1 Tablet(s) PO Q8 PRN 06/10/2013 06/11/2013 Inactive Anusol-HC 25 mg supp ository RxNorm: 5991839 Suppository RTL INSE RT 1 RECTALLY DAILY NEEDED 04/24/2013 07/12/2014 Inactive metoprolol succinate ER 25 mg tablet,extended release 24 hr RxNorm: 506575 1 Tablet(s) PO daily 04/21/2013 08/03/2013 Inactive Premarin 0.625 mg/gr am Vaginal Cream RxNorm: 861963 1/2 Gram(s) VAG every other day 04/03/2013 10/29/2013 In active Klor-Con 10 mEq tabl et,extended release RxNorm: 895913 1 Tablet(s) PO daily 03/26/2013 03/20/2014 In active Klor-Con 10 mEq tabl et,extended release RxNorm: 397996 1 Tablet(s) PO BID 03/24/2013 03/23/2013 In active Klor-Con 10 mEq tabl et,extended release RxNorm: 218829 1 Tablet(s) PO BID 03/24/2013 03/25/2013 In active Klor-Con 10 mEq tabl et,extended release RxNorm: 137717 1 Tablet(s) PO BID 03/24/2013 03/23/2013 In active Augmentin 875 mg-125 mg tablet RxNorm: 108181 1 Tablet(s) PO BID 03/12/2013 03/18/2013 Inactive Augmentin 875 mg-125 mg tablet RxNorm: 806112 1 Tablet(s) PO BID 03/12/2013 03/11/2013 Inactive ciprofloxacin 500 mg tablet RxNorm: 643771 1 Tablet(s) PO BID 03/11/2013 03/17/2013 Inactive ciprofloxacin 500 mg tablet RxNorm: 770089 1 Tablet(s) PO BID 03/11/2013 03/10/2013 Inactive Crestor 10 mg tablet RxNorm: 165395 1 Tablet(s) PO daily 02/10/2013 02/09/2013 Inactive Crestor 10 mg tablet RxNorm: 433642 Tablet(s) PO TAKE ONE TABLET BY MOUTH EV DEANNA DAY 02/10/2013 04/15/2014 Inactive Singulair 10 mg tablet RxNorm: 771403 Tablet(s) PO TAKE ONE TABLET BY MOUTH EV DEANNA DAY 02/04/2013 04/29/2014 Inactive Kenalog 40 mg/mL [facility] p for Injection RxNorm: 3220923 1 Milliliter(s) Inj 11/21/2012 11/21/2012 In active Pennsaid 1.5 % topic al drops RxNorm: 439596 15-20 Drop(s) TOP QID 10/28/2012 11/21/2013 Inactive Micardis 80 mg tablet RxNorm: 473924 1 Tablet(s) PO daily 10/28/2012 10/22/2013 Inactive put this on file please, quantitiy incre ase Pennsaid 1.5 % Topic al Drops RxNorm: 869259 15-20 Drop(s) TOP QID 10/28/2012 10/27/2012 Inactive diltiazem ER 180 mg capsule,extended release RxNorm: 536976 1 Capsule(s) PO daily 10/14/2012 10/08/2013 In active Pyridium 200 mg tablet RxNorm: 6850851 1 Tablet(s) PO Q8 PRN 09/11/2012 10/12/2014 Inactive Flagyl 500 mg tablet RxNorm: 614526 1 Tablet(s) PO TID 09/04/2012 09/10/2012 Inactive Macrobid 100 mg capsule RxNorm: 8716995 1 Capsule(s) PO BID 09/03/2012 09/02/2012 Inactive Macrobid 100 mg capsule RxNorm: 8280887 1 Capsule(s) PO BID 09/03/2012 09/09/2012 Inactive sulfamethoxazole-tri methoprim 800 mg-160 mg tablet RxNorm: 921364 1 Tablet(s) PO BID 08/05/2012 08/14/2012 Inactive Lasix 40 mg tablet RxNorm: 655063 1 Tablet(s) PO BID pt is taking extra la six x 3 days, then every sunday and sunday take two lasix pills. 07/15/2012 07/09/2013 Inactive Synthroid 50 mcg tablet RxNorm: 314725 1 Tablet(s) PO daily 07/15/2012 07/09/2013 Inactive do not substitute the generic levothyrox ine for the synthroid brand name.....she needs brand name synthroid. Klor-Con 10 mEq tabl et,extended release RxNorm: 218955 1 Tablet(s) PO BID 07/15/2012 03/23/2013 In active Singulair 10 mg tablet RxNorm: 280947 1 Tablet(s) PO daily 06/12/2012 02/03/2013 Inactive Lexapro 10 mg tablet RxNorm: 259998 1/2 Tablet(s) PO daily 05/10/2012 06/03/2013 Inactive ProAir HFA 90 mcg/ac tuation Aerosol Inhaler RxNorm: 556193 2 INH Q6 PRN 04/23/2012 01/17/2016 In active Lexapro 10 mg tablet RxNorm: 193129 1/2 Tablet(s) PO daily 04/19/2012 05/09/2012 Inactive metoprolol succinate ER 50 mg tablet,extended release 24 hr RxNorm: 950966 1 Tablet(s) PO daily 04/09/2012 04/09/2012 Inactive Klor-Con 10 10 mEq t ablet,extended release RxNorm: 420431 1 Tablet(s) PO daily 04/01/2012 07/14/2012 In active metoprolol succinate ER 50 mg tablet,extended release 24 hr RxNorm: 673892 1/2 Tablet(s) PO BID 03/11/2012 04/08/2012 Inactive clonidine 0.1 mg Tab RxNorm: 154160 1 Tablet(s) PO BID 02/19/2012 03/12/2012 Inactive clonidine 0.1 mg Tab RxNorm: 683883 1 Tablet(s) PO BID 02/19/2012 02/18/2012 Inactive Micardis 80 mg Tab RxNorm: 478022 1 Tablet(s) PO daily 02/14/2012 02/13/2012 Inactive Micardis 80 mg tablet RxNorm: 006407 1 Tablet(s) PO daily 02/14/2012 10/27/2012 Inactive Synthroid 50 mcg tablet RxNorm: 350702 1 Tablet(s) PO daily 02/12/2012 07/14/2012 Inactive Tekturna 300 mg Tab RxNorm: 9625169 1 Tablet(s) PO daily 02/12/2012 03/12/2012 Inactive Lasix 40 mg Tab RxNorm: 620742 1 Tablet(s) PO daily 12/18/2011 12/17/2011 Inactive Lasix 40 mg tablet RxNorm: 913325 1 Tablet(s) PO daily 12/18/2011 07/14/2012 Inactive Anusol-HC 25 mg Supp ository RxNorm: 1211025 1 Suppository RTL QD AY PRN 12/04/2011 04/19/2012 In active lactobacillus acidop hilus Cap RxNorm: 1 Capsule(s) PO BID 11/21/2011 11/20/2011 Inactive lactobacillus acidop hilus Cap RxNorm: 1 Capsule(s) PO BID 11/21/2011 11/20/2011 Inactive Cipro 500 mg Tab RxNorm: 243110 1 Tablet(s) PO BID 11/21/2011 03/12/2012 Inactive lactobacillus acidop hilus Cap RxNorm: 1 Capsule(s) PO BID 11/21/2011 11/27/2011 Inactive lactobacillus acidop hilus Cap RxNorm: 1 Capsule(s) PO BID 11/21/2011 11/20/2011 Inactive Cipro 500 mg Tab RxNorm: 287252 1 Tablet(s) PO BID 11/21/2011 11/20/2011 Inactive Lexapro 10 mg Tab RxNorm: 216226 1 Tablet(s) PO daily 11/13/2011 11/12/2011 Inactive Lexapro 10 mg tablet RxNorm: 708599 1 Tablet(s) PO daily 11/13/2011 04/18/2012 Inactive amlodipine 10 mg Tab RxNorm: 675479 1 Tablet(s) PO daily 10/09/2011 12/03/2011 Inactive amlodipine 5 mg Tab RxNorm: 030163 1 Tablet(s) PO daily 09/20/2011 12/04/2011 Inactive Rocephin 500 mg Solu tion for Injection RxNorm: 9231986 Inj 11/201109/20/2011 Inactive metoprolol succinate ER 25 mg 24 hr Tab RxNorm: 665529 1 Tablet(s) PO QHS 08/30/2011 09/20/2011 In active Ambien 10 mg Tab RxNorm: 899739 1 Tablet(s) PO HS PRN 08/30/2011 04/19/2012 Inactive Augmentin 875 mg-125 mg Tab RxNorm: 056697 1 Tablet(s) PO BID 08/25/2011 09/20/2011 Inactive Augmentin 875 mg-125 mg Tab RxNorm: 226390 1 Tablet(s) PO BID 08/25/2011 08/24/2011 Inactive Rocephin 500 mg Solu tion for Injection RxNorm: 0576654 Inj 07/2808/23/2011 Inactive Levaquin 500 mg Tab RxNorm: 820132 1 Tablet(s) PO daily 08/23/2011 08/30/2011 Inactive chlordiazepoxide-cli dinium 5 mg-2.5 mg Cap RxNorm: 218340 1 Capsule(s) PO BID 07/10/2011 04/19/2012 In active q 12 hours prn metoprolol succinate ER 100 mg 24 hr Tab RxNorm: 484288 1 Tablet(s) PO daily 05/29/2011 03/12/2012 In active Synthroid 50 mcg Tab RxNorm: 264089 1 Tablet(s) PO daily 05/15/2011 08/12/2011 Inactive Ambien CR 12.5 mg Tab RxNorm: 374923 1 Tablet(s) PO HS PRN 05/09/2011 08/30/2011 Inactive Ambien 10 mg Tab RxNorm: 663671 1 Tablet(s) PO QHS 05/09/2011 06/07/2011 Inactive Nexium 40 mg Cap RxNorm: 777237 1 Capsule(s) PO daily 05/04/2011 03/12/2012 Inactive the patient had tried pepcid, otc priolosec, RX omperazole, failed them all Bactrim DS 800 mg-16 0 mg Tab RxNorm: 655020 1 Tablet(s) PO BID 04/19/2011 08/30/2011 Inactive triamcinolone aceton margie 40 mg/mL Susp for Injection RxNorm: 5939303 1 Milliliter(s) Inj UD 04/19/2011 04/19/2011 Inactive aspirin 81 mg Tab, D elayed Release RxNorm: 818604 1 Tablet(s) PO daily No Start Date Active 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 Device RxNorm: 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, 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 No Start Date Active Cymbalta 30 mg Cap RxNorm: 700324 1 Capsule(s) PO daily No Start Date 03/12/2012 Inactive Nexium 40 mg Cap RxNorm: 054365 Capsule(s) PO No Start Date 05/03/2011 Inactive Benadryl 25 mg capsule RxNorm: 9959792 1 Capsule(s) PO QHS No Start Date 01/03/2017 Inactive Klor-Con 10 10 mEq t ablet,extended release RxNorm: 043529 1 Tablet(s) PO daily No Start Date 03/31/2012 Inactive Metamucil Oral RxNorm: Oral No Start Date 10/12/2014 Inactive amlodipine 10 mg Tab RxNorm: 418864 1 Tablet(s) PO daily No Start Date 10/08/2011 Inactive Norvasc 5 mg tablet RxNorm: 541188 1 Tablet(s) PO daily No Start Date 10/12/2014 Inactive Lasix 40 mg Tab RxNorm: 481602 1 Tablet(s) PO daily No Start Date 12/17/2011 Inactive diltiazem ER (XR/XT) 240 mg capsule,extended release,controlled RxNorm: 278851 1 Capsule(s) PO daily No Start Date 04/22/2012 Inactive Centrum Silver Ultra Women's oral RxNorm: oral No Start D ate 04/24/2018 Inactive Synthroid 50 mcg Tab RxNorm: 544235 1 Tablet(s) PO daily No Start Date 05/14/2011 Inactive Flagyl 500 mg tablet RxNorm: 474741 1 Tablet(s) PO No Start Date 09/03/2012 Inactive one after each loose bm limit 8 per day Boniva 150 mg Tab RxNorm: 776710 1 Tablet(s) PO UD No Start Date 08/30/2011 Inactive monthly Singulair 10 mg tablet RxNorm: 394561 1 Tablet(s) PO daily No Start Date 06/11/2012 Inactive folic acid Oral RxNorm: Oral No Start Date 03/12/2012 Inactive potassium chloride E R 10 mEq tablet,extended release RxNorm: 928239 1 Tablet(s) PO daily No Start Date 01/03/2017 Inactive Probiotic & Acidophi jerilyn oral RxNorm: oral No Start D ate 04/24/2018 Inactive Librium 10 mg Cap RxNorm: 986089 Capsule(s) PO UD No Start Date 03/12/2012 Inactive q 12 hours prn Crestor 10 mg tablet RxNorm: 708519 1 Tablet(s) PO daily No Start Date 02/09/2013 Inactive multivitamin Cap RxNorm: 1 Capsule(s) PO daily No Start Date 01/17/2016 Inactive metoprolol succinate ER 100 mg 24 hr Tab RxNorm: 394131 1 Tablet(s) PO daily No Start Date 05/28/2011 Inactive Zithromax Z-Hebert 250 mg tablet RxNorm: 567735 Tablet(s) PO UD No Start Date 12/22/2015 Inactive diltiazem ER 180 mg capsule,extended release RxNorm: 558702 1 Capsule(s) PO daily No Start Date 10/13/2012 Inactive ProctoCream-HC 2.5 % rectal cream with applicator RxNorm: 849463 APPLY TO AFFECTED AREAS DIRECTED RTL No Start Date 09/30/2018 Inactive Tekturna 300 mg Tab RxNorm: 8391471 1 Tablet(s) PO daily samples No Start Date 02/11/2012 Inactive Xanax 0.25 mg tablet RxNorm: 061833 1-2 Tablet(s) PO QHS as needed insomnia No Start Date 07/24/2017 Inactive Fish Oil 1,000 mg Cap RxNorm: 1 Capsule(s) PO daily No Start Date 04/24/2018 Inactive ProAir HFA 90 mcg/ac tuation Aerosol Inhaler RxNorm: 4878650 2 INH Q6 PRN No Start Date 04/22/2012 Inactive chlordiazepoxide-cli dinium 5 mg-2.5 mg Cap RxNorm: 270540 1 Capsule(s) PO PRN No Start Date 07/09/2011 Inactive q 12 hours prn Butrans 5 mcg/hour T ransderm Patch RxNorm: 713243 1 Patch TD weekly No Start Date 05/26/2012 Inactive Lactobacillus acidop hilus tablet RxNorm: 4 Tablet(s) PO daily No Start Date 01/03/2017 Inactive Librax (with clidini um) 5 mg-2.5 mg capsule RxNorm: 782405 1 Capsule(s) PO BID No Start Date 04/18/2012 Inactive Nexium 40 mg capsule ,delayed release RxNorm: 535269 Capsule(s) PO PRN No Start Date 10/12/2014 Inactive Tylenol Extra Streng th 500 mg tablet RxNorm: 412528 1 Tablet(s) PO BID as needed for pain No Start Date 04/24/2018 Inactive Premarin 0.625 mg/gr am Vaginal Cream RxNorm: 949925 Gram(s) VAG No Start Date 03/12/2012 Inactive three times a week, small amt to vaginal tissuesample given metoprolol succinate ER 50 mg tablet,extended release 24 hr RxNorm: 589136 1 Tablet(s) PO daily No Start Date 03/10/2012 Inactive Zithromax Z-Hebert 250 mg tablet RxNorm: 083991 Tablet(s) PO UD No Start Date 08/13/2014 Inactive albuterol sulfate HF A 90 mcg/actuation aerosol inhaler RxNorm: 6209629 1 or2 Puff(s) INH Q4 PRN No Start Date 05/10/2014 Inactive Xanax 0.25 mg Tab RxNorm: 985721 1/2-1 Tablet(s) PO Q8 PRN No Start Date 03/12/2012 Inactive metoprolol succinate ER 25 mg tablet,extended release 24 hr RxNorm: 016635 1 Tablet(s) PO daily No Start Date 04/20/2013 Inactive Zithromax Z-Hebert 250 mg tablet RxNorm: 901546 1 Tablet(s) PO UD No Start Date 08/10/2016 Inactive Z PACK DIRECTED calcium carbonate 60 0 mg (1,500 mg) Tab RxNorm: 676472 1 Tablet(s) PO BID No Start Date 01/03/2017 Inactive albuterol sulfate HF A 90 mcg/Actuation Aerosol Inhaler RxNorm: 0857520 1-2 Puff(s) INH Q4 PRN No Start Date 03/11/2012 Inactive Vitamin D3 2,000 uni t capsule RxNorm: 233582 1 Capsule(s) PO daily No Start Date 10/12/2014 Inactive Colace 100 mg Cap RxNorm: 7123415 1 Capsule(s) PO BID No Start Date 01/17/2016 Inactive Neurontin 600 mg tablet RxNorm: 259505 1 Tablet(s) PO Q8 PRN No Start Date 06/09/2013 Inactive Lomotil 2.5 mg-0.025 mg tablet RxNorm: 1984537 1 Tablet(s) PO No Start Date 06/14/2014 Inactive one after each loose bm limit 8 per day Micardis 80 mg Tab RxNorm: 872113 1 Tablet(s) PO daily No Start Date 12/03/2011 Inactive Pyridium 200 mg tablet RxNorm: 9772752 1 Tablet(s) PO Q8 PRN No Start Date 09/10/2012 Inactive Medication Administered Medication Codes Instruc tions Start Date Status Kenalog 40 mg/mL suspension for injection RxNorm: 1183606 1Milliliter 08/09/2017 N o longer Active ceftriaxone 500 mg solution for injection RxNorm: 1642556 08/09/2017 No longer A ctive Kenalog 40 mg/mL suspension for injection RxNorm: 2046911 1Milliliter 01/04/2017 N o longer Active Kenalog 40 mg/mL suspension for injection RxNorm: 8331767 Milliliter 08/23/2016 No longer Active Rocephin 500 mg solution for injection RxNorm: 013628 1Milliliter 05/07/2014 N o longer Active Kenalog 40 mg/mL suspension for injection RxNorm: 7593824 Milliliter 12/26/2013 No longer Active Rocephin 500 mg solution for injection RxNorm: 765329 12/26/2013 No longer A ctive Kenalog 40 mg/mL suspension for injection RxNorm: 6513042 Milliliter 11/12/2013 No longer Active Rocephin 500 mg solution for injection RxNorm: 737712 1Milliliter 10/09/2013 N o longer Active Kenalog 40 mg/mL Susp for Injection RxNorm: 8577287 1Milliliter 11/21/2012 N o longer Active Rocephin 500 mg Solution for Injection RxNorm: 6125795 08/23/2011 No longer A ctive triamcinolone acetonide 40 mg/mL Susp for Injection RxNorm: 5762159 1MilliliterUD 04/19/2011 No longer Active Immunizations Vaccine [...] 11/12/2013 Laboratory exam ordered as part of [facility] general medical examination ICD-9: V72.62 11/12/2013 [...] Item Item Code Result Date Comp Metabolic Kmi635 NA 139 mEq/L 05/29/2018 Comp Metabolic Isd208 K 4.1 mEq/L 05/29/2018 Comp Metabolic Llk794 CL 99 mEq/L 05/29/2018 Comp Metabolic Hyo503 CO2 30.0 mEq/L 05/29/2018 Comp Metabolic Kyy724 AN ION GAP 14 05/29/2018 Comp Metabolic Zlc570 GL UCOSE 107 mg/dL 05/29/2018 Comp Metabolic Kde415 Cr eat 0.6 mg/dL 05/29/2018 Comp Metabolic Hoc136 eG FR 95 ml/min/1.73m2 05/29 Comp Metabolic Adi570 BUN 15 mg/dL 05/29/2018 Comp Metabolic Txz148 B/ C Ratio 23.4 Ratio 05/29/2018 Comp Metabolic Crg753 CA LCIUM 9.4 mg/dL 05/29/2018 Comp Metabolic Kbm092 AL K PHOS 52 U/L 05/29/2018 Comp Metabolic Fgn444 T(SGOT) 16 U/L 05/29/2018 Comp Metabolic Req848 AL T(SGPT) 12 U/L 05/29/2018 Comp Metabolic Rsv570 BI LI T 1.1 mg/dL 05/29/2018 Comp Metabolic Xdk299 AL BUMIN 4.0 g/dL 05/29/2018 Comp Metabolic Vse714 TP RO 6.5 g/dL 05/29/2018 Comp Metabolic Oik348 GL OB 2.5 g/dL 05/29/2018 Comp Metabolic Kyx443 A/ G Ratio 1.6 Ratio 05/29/2018 Comp Metabolic Ity783 Os mo 279 mOsmo 05/29/2018 Cbc With [...] 28.9 pg 05/29/2018 Cbc With Differential Ord2 [place]% 9.0 % 05/29/2018 Cbc With Differential Ord2 [...] 2.05 K/ul 05/29/2018 Cbc With Differential Ord2 [place] ABS# 0.7 K/ul 05/29/2018 Cbc With Differential Ord2 Eos ABS# 0.2 K/ul 05/29/2018 Cbc With Differential Ord2 Baso ABS# 0.0 K/ul 05/29/2018 Tsh Ord6 TSH (3rd IS) 2.05 uIU/mL 05/29/2018 Lipid Ord30 CHOL 191 mg/dL 05/29/2018 Lipid Ord30 HDL 68.0 mg/dl 05/29/2018 Lipid Ord30 TRIG 138 mg/dL 05/29/2018 Lipid Ord30 LDL 95 mg/dL 05/29/2018 Lipid Ord30 C/HDL 2.8 Ratio 05/29/2018 Free T4 Hxn305 FREE T4 0.93 ng/dL 05/29/2018 Free T4 Txy072 FREE T4 0.90 ng/dL 09/12/2017 Cbc With [...] 29.3 pg 09/12/2017 Cbc With Differential Ord2 [place]% 8.7 % 09/12/2017 Cbc With Differential Ord2 [...] 2.72 K/ul 09/12/2017 Cbc With Differential Ord2 [place] ABS# 1.2 K/ul 09/12/2017 Cbc With Differential Ord2 Eos ABS# 0.3 K/ul 09/12/2017 Cbc With Differential Ord2 Baso ABS# 0.1 K/ul 09/12/2017 Comp Metabolic Mud693 NA 140 mEq/L 09/12/2017 Comp Metabolic Sge085 K 4.3 mEq/L 09/12/2017 Comp Metabolic Byf937 CL 99 mEq/L 09/12/2017 Comp Metabolic Lrr355 CO2 33.0 mEq/L 09/12/2017 Comp Metabolic Tca251 AN ION GAP 12 09/12/2017 Comp Metabolic Vqh600 GL UCOSE 92 mg/dL 09/12/2017 Comp Metabolic Noz054 Cr eat 0.7 mg/dL 09/12/2017 Comp Metabolic Tii481 eG FR 84 ml/min/1.73m2 09/12 Comp Metabolic Sjo917 BUN 18 mg/dL 09/12/2017 Comp Metabolic Qmg510 B/ C Ratio 25.4 Ratio 09/12/2017 Comp Metabolic Dem286 CA LCIUM 9.3 mg/dL 09/12/2017 Comp Metabolic Fbj286 AL K PHOS 64 U/L 09/12/2017 Comp Metabolic Vbq037 T(SGOT) 13 U/L 09/12/2017 Comp Metabolic Myd624 AL T(SGPT) 12 U/L 09/12/2017 Comp Metabolic Ubf068 BI LI T 0.7 mg/dL 09/12/2017 Comp Metabolic Ijt667 AL BUMIN 4.0 g/dL 09/12/2017 Comp Metabolic Adb879 TP RO 6.3 g/dL 09/12/2017 Comp Metabolic Rlj296 GL OB 2.3 g/dL 09/12/2017 Comp Metabolic Lrt326 A/ G Ratio 1.8 Ratio 09/12/2017 Comp Metabolic Elf752 Os mo 281 mOsmo 09/12/2017 Lipid Ord30 [...] 28.8 pg 03/09/2016 Cbc With Differential Ord2 [place]% 8.5 % 03/09/2016 Cbc With Differential Ord2 [...] 2.38 K/ul 03/09/2016 Cbc With Differential Ord2 [place] ABS# 0.8 K/ul 03/09/2016 Cbc With Differential Ord2 Eos ABS# 0.2 K/ul 03/09/2016 Cbc With Differential Ord2 Baso ABS# 0.1 K/ul 03/09/2016 Comp Metabolic Qct840 NA 138 mEq/L 03/09/2016 Comp Metabolic Zaf432 K 4.5 mEq/L 03/09/2016 Comp Metabolic Gad464 CL 100 mEq/L 03/09/2016 Comp Metabolic Zlh867 CO2 33.0 mEq/L 03/09/2016 Comp Metabolic Yqj353 AN ION GAP 10 03/09/2016 Comp Metabolic Jwr744 GL UCOSE 94 mg/dL 03/09/2016 Comp Metabolic Jgc215 Cr eat 0.6 mg/dL 03/09/2016 Comp Metabolic Ckq996 eG FR 106 ml/min/1.73m2 02/24 Comp Metabolic Bzj550 BUN 10 mg/dL 03/09/2016 Comp Metabolic Msf187 B/ C Ratio 17.2 Ratio 03/09/2016 Comp Metabolic Dlg290 CA LCIUM 9.2 mg/dL 03/09/2016 Comp Metabolic Gtd733 AL K PHOS 64 U/L 03/09/2016 Comp Metabolic Utg252 T(SGOT) 20 U/L 03/09/2016 Comp Metabolic Ivy041 AL T(SGPT) 11 U/L 03/09/2016 Comp Metabolic Ghy633 BI LI T 0.9 mg/dL 03/09/2016 Comp Metabolic Ioo769 AL BUMIN 4.0 g/dL 03/09/2016 Comp Metabolic Zih244 TP RO 6.1 g/dL 03/09/2016 Comp Metabolic Kwd341 GL OB 2.1 g/dL 03/09/2016 Comp Metabolic Vbl123 A/ G Ratio 1.9 Ratio 03/09/2016 Comp Metabolic Qxh072 Os mo 274 mOsmo 03/09/2016 Free T4 Uac983 FREE T4 0.90 ng/dL 03/09/2016 Lipid Ord30 [...] hTSH II 3.25 uIU/mL 09/07/2015 Free T4 Ypz132 FREE T4 0.79 ng/dL 09/07/2015 Comp Metabolic Ptl300 NA 137 mEq/L 09/07/2015 Comp Metabolic Vqg454 K 4.0 mEq/L 09/07/2015 Comp Metabolic Ysm158 CL 98 mEq/L 09/07/2015 Comp Metabolic Eus451 CO2 30.0 mEq/L 09/07/2015 Comp Metabolic Gkc878 AN ION GAP 13 09/07/2015 Comp Metabolic Ptt157 GL UCOSE 101 mg/dL 09/07/2015 Comp Metabolic Vlm361 Cr eat 0.6 mg/dL 09/07/2015 Comp Metabolic Skp507 eG FR 111 ml/min/1.73m2 08/27 Comp Metabolic Pcf284 BUN 16 mg/dL 09/07/2015 Comp Metabolic Ues548 B/ C Ratio 28.6 Ratio 09/07/2015 Comp Metabolic Jbc218 CA LCIUM 9.4 mg/dL 09/07/2015 Comp Metabolic Lyi245 AL K PHOS 68 U/L 09/07/2015 Comp Metabolic Pfw403 T(SGOT) 16 U/L 09/07/2015 Comp Metabolic Oim847 AL T(SGPT) 12 U/L 09/07/2015 Comp Metabolic Riv973 BI LI T 0.9 mg/dL 09/07/2015 Comp Metabolic Foh587 AL BUMIN 4.1 g/dL 09/07/2015 Comp Metabolic Ter548 TP RO 6.5 g/dL 09/07/2015 Comp Metabolic Inp882 GL OB 2.4 g/dL 09/07/2015 Comp Metabolic Gut962 A/ G Ratio 1.7 Ratio 09/07/2015 Comp Metabolic Yql754 Os mo 275 mOsmo 09/07/2015 Cbc With [...] Differential Ord2 RDW 14.4 % 09/07/2015 TSH 7367560 TSH 0.920 uIU/ML 08/28/2014 CBC 4381230 WBC 12.5 10e9/L 08/28/2014 CBC 1082945 RBC 3.44 10e12/L 08/28/2014 CBC 8823397 HGB 10.3 g/dL 08/28/2014 CBC 6739697 HCT DET 33.9 % 08/28/2014 CBC 2239700 MCV 98.5 fL 08/28/2014 CBC 4647992 MCH 29.9 pg 08/28/2014 CBC 7188746 MCHC 30.4 g/dL 08/28/2014 CBC 5815793 PLT 412 10e9/L 08/28/2014 CBC 4696604 MPV 10.2 fL 08/28/2014 CBC 6014671 NNEKA % 68.5 % 08/28/2014 CBC 0790003 LY % 20.8 % 08/28/2014 CBC 2498636 MON % 9.9 % 08/28/2014 CBC 8948855 EOS % 0.6 % 08/28/2014 CBC 6027634 BASO % 0.2 % 08/28/2014 CBC 9905237 RDW 15.8 % 08/28/2014 CBC 8412538 ABS NNEKA 8.56 10e9/L 08/28/2014 CBC 9578069 ABS LYMPH 2.60 10e9/L 08/28/2014 CBC 4478868 ABS MONO 1.24 10e9/L 08/28/2014 CBC 0802932 ABS EOS 0.08 10e9/L 08/28/2014 CBC 3155760 ABS BASO 0.03 10e9/L 08/28/2014 CBC 3223319 RDW-SD 55.4 fL 08/28/2014 GFR CALC 3257040 GFR AA >60 ML/MIN 08/28/2014 GFR CALC 3755645 GFR NON -AA >60 ML/MIN 08/28/2014 LIPID GRP HDL TE ST 69 MG/DL 08/28/2014 LIPID GRP TRIG 158 MG/DL 08/28/2014 LIPID GRP TEST L DL 96 MG/DL 08/28/2014 LIPID GRP CHOL 197 MG/DL 08/28/2014 LIPID GRP RCHOL/ HDL 2.86 RATIO 08/28/2014 LIPID GRP NON-HD L CH 128 MG/DL 08/28/2014 CHEM 14 8940607 AST 14 U/L 08/28/2014 CHEM 14 5126900 ALT 13 IU/L 08/28/2014 CHEM 14 4426977 BUN 15 MG/DL 08/28/2014 CHEM 14 3040819 ALBUMIN 4.2 GM/DL 08/28/2014 CHEM 14 4842309 CHLORIDE 98 MMOL/L 08/28/2014 CHEM 14 6137905 BILI TOT 1.2 MG/DL 08/28/2014 CHEM 14 1140832 ALK PHOS 68 U/L 08/28/2014 CHEM 14 8047466 SODIUM 137 MMOL/L 08/28/2014 CHEM 14 2074735 CREATINI NE 0.68 MG/DL 08/28/2014 CHEM 14 6527546 CALCIUM 9.1 MG/DL 08/28/2014 CHEM 14 3404868 POTASSIUM 3.7 MMOL/L 08/28/2014 CHEM 14 7249941 PROT TOT 6.2 GM/DL 08/28/2014 CHEM 14 9395674 GLUCOSE 91 MG/DL 08/28/2014 CHEM 14 5730528 BICARB 31 MMOL/L 08/28/2014 CHEM 14 3738489 ANION GAP 8 MEQ/L 08/28/2014 FREE T4 7947639 FREE T4 1.44 NG/DL 08/28/2014 LIPID GRP HDL TE ST 73 MG/DL 04/16/2014 LIPID GRP TRIG 131 MG/DL 04/16/2014 LIPID GRP TEST L DL 99 MG/DL 04/16/2014 LIPID GRP CHOL 198 MG/DL 04/16/2014 LIPID GRP RCHOL/ HDL 2.71 RATIO 04/16/2014 LIPID GRP NON-HD L CH 125 MG/DL 04/16/2014 CHEM 14 8303832 AST 17 U/L 04/14/2014 CHEM 14 2270058 ALT 17 IU/L 04/14/2014 CHEM 14 6014555 BUN 15 MG/DL 04/14/2014 CHEM 14 6584407 ALBUMIN 4.3 GM/DL 04/14/2014 CHEM 14 4151771 CHLORIDE 96 MMOL/L 04/14/2014 CHEM 14 6437894 BILI TOT 0.9 MG/DL 04/14/2014 CHEM 14 5546763 ALK PHOS 65 U/L 04/14/2014 CHEM 14 0113397 SODIUM 135 MMOL/L 04/14/2014 CHEM 14 4523198 CREATINI NE 0.69 MG/DL 04/14/2014 CHEM 14 2952964 CALCIUM 9.5 MG/DL 04/14/2014 CHEM 14 7801134 POTASSIUM 4.1 MMOL/L 04/14/2014 CHEM 14 7086703 PROT TOT 6.6 GM/DL 04/14/2014 CHEM 14 6699064 GLUCOSE 104 MG/DL 04/14/2014 CHEM 14 9192623 BICARB 34 MMOL/L 04/14/2014 CHEM 14 9037891 ANION GAP 5 MEQ/L 04/14/2014 A1C HPLC 3532979 A1C HPLC 03611-2 5.0 % 04/14/2014 TSH 9313486 TSH 2.140 uIU/ML 04/14/2014 FREE T4 0703896 FREE T4 1.56 NG/DL 04/14/2014 GFR CALC 1018688 GFR AA >60 ML/MIN 04/14/2014 GFR CALC 3796064 GFR NON -AA >60 ML/MIN 04/14/2014 CBC 4616129 WBC 12.8 10e9/L 04/14/2014 CBC 9789605 RBC 4.44 10e12/L 04/14/2014 CBC 4203562 HGB 13.2 g/dL 04/14/2014 CBC 2697708 HCT DET 41.4 % 04/14/2014 CBC 9896064 MCV 93.2 fL 04/14/2014 CBC 9147078 MCH 29.7 pg 04/14/2014 CBC 7144767 MCHC 31.9 g/dL 04/14/2014 CBC 5162666 PLT 383 10e9/L 04/14/2014 CBC 2454945 MPV 10.1 fL 04/14/2014 CBC 1946169 NNEKA % 65.5 % 04/14/2014 CBC 7960658 LY % 23.0 % 04/14/2014 CBC 8047530 MON % 9.9 % 04/14/2014 CBC 7591682 EOS % 1.3 % 04/14/2014 CBC 1683282 BASO % 0.3 % 04/14/2014 CBC 2821615 RDW 13.7 % 04/14/2014 CBC 6313838 ABS NNEKA 8.38 10e9/L 04/14/2014 CBC 1979707 ABS LYMPH 2.94 10e9/L 04/14/2014 CBC 3096820 ABS MONO 1.27 10e9/L 04/14/2014 CBC 1656783 ABS EOS 0.17 10e9/L 04/14/2014 CBC 9879548 ABS BASO 0.04 10e9/L 04/14/2014 CBC 3216115 RDW-SD 45.9 fL 04/14/2014 A1C HPLC 0944456 A1C HPLC 69776-1 4.9 % 11/13/2013 CHEM 14 6155939 AST 15 U/L 11/12/2013 CHEM 14 2661033 ALT 14 IU/L 11/12/2013 CHEM 14 7481649 BUN 14 MG/DL 11/12/2013 CHEM 14 8997465 ALBUMIN 4.3 GM/DL 11/12/2013 CHEM 14 5713295 CHLORIDE 101 MMOL/L 11/12/2013 CHEM 14 3023727 BILI TOT 0.9 MG/DL 11/12/2013 CHEM 14 2755757 ALK PHOS 67 U/L 11/12/2013 CHEM 14 9153769 SODIUM 139 MMOL/L 11/12/2013 CHEM 14 2140990 CREATINI NE 0.67 MG/DL 11/12/2013 CHEM 14 9996887 CALCIUM 9.5 MG/DL 11/12/2013 CHEM 14 6915076 POTASSIUM 4.1 MMOL/L 11/12/2013 CHEM 14 5465887 PROT TOT 6.5 GM/DL 11/12/2013 CHEM 14 0099262 GLUCOSE 102 MG/DL 11/12/2013 CHEM 14 0254927 BICARB 30 MMOL/L 11/12/2013 CHEM 14 9260349 ANION GAP 8 MEQ/L 11/12/2013 GFR CALC 5196406 GFR AA >60 ML/MIN 11/12/2013 GFR CALC 9158105 GFR NON -AA >60 ML/MIN 11/12/2013 TSH 0155072 TSH 2.445 uIU/ML 11/12/2013 FREE T4 2419095 FREE T4 1.09 NG/DL 11/12/2013 CBC 9315162 WBC 7.6 10e9/L 11/12/2013 CBC 9907425 RBC 4.42 10e12/L 11/12/2013 CBC 1049894 HGB 13.1 g/dL 11/12/2013 CBC 8471638 HCT DET 41.2 % 11/12/2013 CBC 4311867 MCV 93.2 fL 11/12/2013 CBC 1994114 MCH 29.6 pg 11/12/2013 CBC 0145603 MCHC 31.8 g/dL 11/12/2013 CBC 4927101 PLT 314 10e9/L 11/12/2013 CBC 1180889 MPV 10.4 fL 11/12/2013 CBC 0103607 NNEKA % 59.8 % 11/12/2013 CBC 6116834 LY % 28.1 % 11/12/2013 CBC 5450228 MON % 9.5 % 11/12/2013 CBC 7091963 EOS % 1.8 % 11/12/2013 CBC 1844127 BASO % 0.8 % 11/12/2013 CBC 6674678 RDW 13.8 % 11/12/2013 CBC 5871093 ABS NNEKA 4.54 10e9/L 11/12/2013 CBC 3195056 ABS LYMPH 2.14 10e9/L 11/12/2013 CBC 9588543 ABS MONO 0.72 10e9/L 11/12/2013 CBC 4140042 ABS EOS 0.14 10e9/L 11/12/2013 CBC 9083758 ABS BASO 0.06 10e9/L 11/12/2013 CBC 9162030 RDW-SD 46.0 fL 11/12/2013 LIPID GRP HDL TE ST 66 MG/DL 11/12/2013 LIPID GRP TRIG 130 MG/DL 11/12/2013 LIPID GRP 3148090 TEST L DL 108 MG/DL 11/12/2013 LIPID GRP CHOL 200 MG/DL 11/12/2013 LIPID GRP RCHOL/ HDL 3.03 RATIO 11/12/2013 HS NEE ZOS 4849076 HS VA R ZOS IMMUNE 04/04/2013 A1C 5074023 A1C HPLC 88637-0 5.2 % 04/03/2013 GFR CALC 9093978 GFR AA >60 ML/MIN 03/31/2013 GFR CALC 3978518 GFR NON -AA >60 ML/MIN 03/31/2013 TSH 6572192 TSH 2.689 uIU/ML 03/31/2013 LIPID GRP HDL TE ST 63 MG/DL 03/31/2013 LIPID GRP TRIG 157 MG/DL 03/31/2013 LIPID GRP TEST L DL 98 MG/DL 03/31/2013 LIPID GRP CHOL 192 MG/DL 03/31/2013 LIPID GRP RCHOL/ HDL 3.05 RATIO 03/31/2013 FREE T4 3666394 FREE T4 1.19 NG/DL 03/31/2013 CHEM 14 4053037 AST 16 U/L 03/31/2013 CHEM 14 8563809 ALT 12 IU/L 03/31/2013 CHEM 14 5006859 BUN 17 MG/DL 03/31/2013 CHEM 14 2102414 ALBUMIN 4.5 GM/DL 03/31/2013 CHEM 14 5752980 CHLORIDE 98 MMOL/L 03/31/2013 CHEM 14 9593348 BILI TOT 0.7 MG/DL 03/31/2013 CHEM 14 2753541 ALK PHOS 53 U/L 03/31/2013 CHEM 14 6429980 SODIUM 137 MMOL/L 03/31/2013 CHEM 14 2451763 CREATINI NE 0.66 MG/DL 03/31/2013 CHEM 14 9284156 CALCIUM 9.6 MG/DL 03/31/2013 CHEM 14 6631750 POTASSIUM 4.2 MMOL/L 03/31/2013 CHEM 14 0548434 PROT TOT 6.7 GM/DL 03/31/2013 CHEM 14 3153287 GLUCOSE 101 MG/DL 03/31/2013 CHEM 14 4771952 BICARB 33 MMOL/L 03/31/2013 CHEM 14 9344922 ANION GAP 6 MEQ/L 03/31/2013 CBC 2250775 WBC 7.5 10e9/L 03/31/2013 CBC 1009579 RBC 4.39 10e12/L 03/31/2013 CBC 7688974 HGB 13.0 g/dL 03/31/2013 CBC 8714701 HCT DET 40.2 % 03/31/2013 CBC 8591900 MCV 91.6 fL 03/31/2013 CBC 9551549 MCH 29.6 pg 03/31/2013 CBC 0804484 MCHC 32.3 g/dL 03/31/2013 CBC 2895940 PLT 305 10e9/L 03/31/2013 CBC 9240459 MPV 10.4 fL 03/31/2013 CBC 3229949 NNEKA % 56.8 % 03/31/2013 CBC 5237049 LY % 30.3 % 03/31/2013 CBC 8902067 MON % 9.8 % 03/31/2013 CBC 4770533 EOS % 2.3 % 03/31/2013 CBC 0001199 BASO % 0.8 % 03/31/2013 CBC 0902465 RDW 13.2 % 03/31/2013 CBC 0705899 ABS NNEKA 4.26 10e9/L 03/31/2013 CBC 5633257 ABS LYMPH 2.27 10e9/L 03/31/2013 CBC 8248197 ABS MONO 0.74 10e9/L 03/31/2013 CBC 2694773 ABS EOS 0.17 10e9/L 03/31/2013 CBC 5789154 ABS BASO 0.06 10e9/L 03/31/2013 CBC 9468947 RDW-SD 43.2 fL 03/31/2013 LIPID GRP HDL TE ST 49 MG/DL 09/11/2012 LIPID GRP TRIG 134 MG/DL 09/11/2012 LIPID GRP TEST L DL 81 MG/DL 09/11/2012 LIPID GRP CHOL 157 MG/DL 09/11/2012 LIPID GRP RCHOL/ HDL 3.20 RATIO 09/11/2012 TSH 8703535 TSH 2.118 uIU/ML 09/11/2012 CBC 6177756 WBC 7.5 10e9/L 09/11/2012 CBC 4535548 RBC 3.99 10e12/L 09/11/2012 CBC 2370500 HGB 11.7 g/dL 09/11/2012 CBC 5446494 HCT DET 37.7 % 09/11/2012 CBC 9716238 MCV 94.5 fL 09/11/2012 CBC 6408973 MCH 29.3 pg 09/11/2012 CBC 3055862 MCHC 31.0 g/dL 09/11/2012 CBC 1669205 PLT 384 10e9/L 09/11/2012 CBC 1501642 MPV 11.0 fL 09/11/2012 CBC 0204643 NNEKA % 51.7 % 09/11/2012 CBC 9489445 LY % 35.2 % 09/11/2012 CBC 1235045 MON % 10.4 % 09/11/2012 CBC 3985936 EOS % 2.3 % 09/11/2012 CBC 4502701 BASO % 0.4 % 09/11/2012 CBC 6474084 RDW 14.2 % 09/11/2012 CBC 7008298 ABS NNEKA 3.88 10e9/L 09/11/2012 CBC 1958272 ABS LYMPH 2.64 10e9/L 09/11/2012 CBC 8985370 ABS MONO 0.78 10e9/L 09/11/2012 CBC 7443556 ABS EOS 0.17 10e9/L 09/11/2012 CBC 7940193 ABS BASO 0.03 10e9/L 09/11/2012 CBC 4347979 RDW-SD 47.1 fL 09/11/2012 CHEM 14 0130723 AST 16 U/L 09/11/2012 CHEM 14 1264080 ALT 15 IU/L 09/11/2012 CHEM 14 6539041 BUN 11 MG/DL 09/11/2012 CHEM 14 0589479 ALBUMIN 4.2 GM/DL 09/11/2012 CHEM 14 1299935 CHLORIDE 101 MMOL/L 09/11/2012 CHEM 14 6301499 BILI TOT 0.8 MG/DL 09/11/2012 CHEM 14 9759253 ALK PHOS 57 U/L 09/11/2012 CHEM 14 8812392 SODIUM 141 MMOL/L 09/11/2012 CHEM 14 8511843 CREATINI NE 0.62 MG/DL 09/11/2012 CHEM 14 4343594 CALCIUM 9.5 MG/DL 09/11/2012 CHEM 14 5453276 POTASSIUM 4.7 MMOL/L 09/11/2012 CHEM 14 3074635 PROT TOT 6.6 GM/DL 09/11/2012 CHEM 14 2202705 GLUCOSE 90 MG/DL 09/11/2012 CHEM 14 4851520 BICARB 32 MMOL/L 09/11/2012 CHEM 14 7430536 ANION GAP 8 MEQ/L 09/11/2012 A1C HPLC 7159694 A1C HPLC 13879-6 4.5 % 09/11/2012 GFR CALC 5644334 GFR AA >60 ML/MIN 09/11/2012 GFR CALC 5026589 GFR NON -AA >60 ML/MIN 09/11/2012 FREE T4 8043990 FREE T4 1.30 NG/DL 09/11/2012 [facility] GLUCOSE 93 MG/DL 04/16/2012 BMP CREATININE 0.64 MG/DL 04/16/2012 BMP BUN 12 MG/DL 04/16/2012 BMP SODIUM 139 MMOL/L 04/16/2012 BMP POTASSIUM 4.1 MMOL/L 04/16/2012 BMP CHLORIDE 99 MMOL/L 04/16/2012 BMP BICARB 32 MMOL/L 04/16/2012 BMP ANION GAP 8 MEQ/L 04/16/2012 BMP CALCIUM 9.8 MG/DL 04/16/2012 CBC 6932872 WBC 8.5 10e9/L 04/16/2012 CBC 5245630 RBC 3.98 10e12/L 04/16/2012 CBC 6413051 HGB 11.5 g/dL 04/16/2012 CBC 2625456 HCT DET 36.7 % 04/16/2012 CBC 2102795 MCV 92.2 fL 04/16/2012 CBC 5650241 MCH 28.9 pg 04/16/2012 CBC 3975941 MCHC 31.3 g/dL 04/16/2012 CBC 1970285 PLT 321 10e9/L 04/16/2012 CBC 4452138 MPV 10.2 fL 04/16/2012 CBC 3654916 NNEKA % 64.3 % 04/16/2012 CBC 6836066 LY % 24.3 % 04/16/2012 CBC 0779042 MON % 9.0 % 04/16/2012 CBC 8674341 EOS % 1.9 % 04/16/2012 CBC 1340181 BASO % 0.5 % 04/16/2012 CBC 9145578 RDW 13.7 % 04/16/2012 CBC 1983292 ABS NNEKA 5.47 10e9/L 04/16/2012 CBC 2129037 ABS LYMPH 2.07 10e9/L 04/16/2012 CBC 2771685 ABS MONO 0.77 10e9/L 04/16/2012 CBC 1917871 ABS EOS 0.16 10e9/L 04/16/2012 CBC 2583959 ABS BASO 0.04 10e9/L 04/16/2012 CBC 9539562 RDW-SD 44.6 fL 04/16/2012 GFR CALC 4471718 GFR AA >60 ML/MIN 04/16/2012 GFR CALC 0679167 GFR NON -AA >60 ML/MIN 04/16/2012 URINALYSIS NONAUTO W/O SCOPE 87711 Specific [place] 1.015 DateTime(Free Text in Aprima) URINALYSIS NONAUTO W/O SCOPE 83267 PH 6.0 DateTime(Free Jim t in Aprima) URINALYSIS NONAUTO W/O SCOPE 14796 GLUCOSE neg DateTime(Free Jim t in Aprima) URINALYSIS NONAUTO W/O SCOPE 98130 Protein neg DateTime(Free Jim t in Apr) URINALYSIS NONAUTO W/O SCOPE 47342 Blood 1+ DateTime(Free Text in Aprima) URINALYSIS NONAUTO W/O SCOPE 87977 Bilirubin neg DateTime(Free Jim t in Aprima) URINALYSIS NONAUTO W/O SCOPE 24258 Ketones neg DateTime(Free Jim t in Aprima) URINALYSIS NONAUTO W/O SCOPE 97310 Urobilinogen neg DateTime(Free Text in Aprima) URINALYSIS NONAUTO W/O SCOPE 29383 Nitrite positive DateTime(Madi e Text in ) URINALYSIS NONAUTO W/O SCOPE 11477 Leukocytes 1+ DateTime(Free Text in Novima) UA 10866 Specific Seaman 1.015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 MD, [facility] CPT-4: 39648 10/28/2012 ([id number]) 76833 EST. P ATIENT, LEVEL IV Diagnosis: ESSENTIAL HYPERTENSION[SNOMED: 10245562] Diagnosis: EDEMA[ICD9: 782.3] Diagnosis: Knee pain, right[ICD9: 719.46] Diagnosis: Urge incontinence[ICD9: 788.31] Concepción Flanagan MD, [facility] CPT-4: 99115 09/30/2012 ([id number]) 30444 EST. P ATIENT, LEVEL III Diagnosis: ESSENTIAL HYPERTENSION[SNOMED: 27123351] Concepción Flanagan MD, C CPT-4: 69573 08/14/2012 ([id number]) 55990 EST. P ATIENT, LEVEL III Diagnosis: CELLULITIS OF LEG[ICD9: 682.6] Concepción Flanagan MD, [facility] CPT-4: 20455 08/05/2012 ([id number]) 02914 EST. P ATIENT, LEVEL IV Diagnosis: ESSENTIAL HYPERTENSION[SNOMED: 46075770] Diagnosis: EDEMA[ICD9: 782.3] Diagnosis: Constipation[ICD9: 564.00] Concepción Flanagan MD, [facility] CPT-4: 76597 07/15/2012 ([id number]) 79119 EST. P ATIENT, LEVEL III Diagnosis: Subungual contusion of toenail[ICD9: 924.3] Concepción Flanagan MD, C CPT-4: 84504 05/27/2012 Postop follow up vis it related to original px Diagnosis: BENIGN ERLINDA SKIN ARM[ICD9: 216.6] Diagnosis: BENIGN ERLINDA SKIN TRUNK[ICD9: 216.5] Concepción Flanagan MD, [facility] CPT- 4: 81876 05/03/2012 ([id number]) 87633 EST. P ATIENT, LEVEL IV Diagnosis: ESSENTIAL HYPERTENSION[SNOMED: 55362960] Diagnosis: OA (osteoarthritis) of knee[ICD9: 715.96] Diagnosis: EDEMA[ICD9: 782.3] Concepción Flanagan MD, [facility] CPT-4: 09614 03/25/2012 33976 EST. PATIENT, LEVEL IV Diagnosis: ESSENTIAL HYPERTENSION[SNOMED: 14972176] Diagnosis: Abdominal bloating[ICD9: 787.3] Concepción Flanagan MD, [facility] CPT-4: 64645 03/12/2012 ([id number]) 41087 EST. P ATIENT, LEVEL IV Diagnosis: ESSENTIAL HYPERTENSION[SNOMED: 42499028] Diagnosis: EDEMA[ICD9: 782.3] Concepción Flanagan MD, [facility] CPT-4: 94131 01/23/2012 ([id number]) 24645 EST. P ATIENT, LEVEL III Diagnosis: Breast pain, left[ICD9: 611.71] Chaparrita Flanagan MD, [facility] CPT- 4: 41065 01/12/2012 ([id number]) 70146 EST. P ATIENT, LEVEL IV Diagnosis: ESSENTIAL HYPERTENSION[SNOMED: 60951473] Diagnosis: DEPRESSIVE DISORDER NEC[ICD9: 311] Diagnosis: ANXIETY STATE[ICD9: 300.00] Concepción Flanagan MD, [facility] CPT-4: 54676 12/25/2011 ([id number]) 25863 EST. P ATIENT, LEVEL IV Diagnosis: ESSENTIAL HYPERTENSION[SNOMED: 61355686] Diagnosis: EDEMA[ICD9: 782.3] Concepción Flanagan MD, [facility] CPT-4: 99024 12/04/2011 ([id number]) 98229 EST. P ATIENT, LEVEL IV Diagnosis: ESSENTIAL HYPERTENSION[SNOMED: 92274620] Diagnosis: DEPRESSIVE DISORDER NEC[ICD9: 311] Concepción Flanagan MD, [facility] CPT- 4: 78270 09/20/2011 27022 EST. PATIENT, LEVEL IV Diagnosis: Dysuria[ICD9: 788.1] Diagnosis: ESSENTIAL HYPERTENSION[SNOMED: 90595406] Diagnosis: Anxiety[ICD9: 300.00] Concepción Flanagan MD, [facility] CPT-4: 55311 09/06/2011 ([id number]) 39504 EST. P ATIENT, LEVEL IV Diagnosis: LUMBAGO[ICD9: 724.2] Diagnosis: ESSENTIAL HYPERTENSION[SNOMED: 13089963] Concepción Flanagan MD, [facility] CPT-4: 92128 08/30/2011 82760 EST. PATIENT, LEVEL III Diagnosis: ACUTE SINUSITIS[ICD9: 461.9] Diagnosis: Urinary frequency[ICD9: 788.41] Chaparrita Flanagan MD, [facility] CPT- 4: 29208 08/23/2011 53963 EST. PATIENT, LEVEL III Diagnosis: Lesion of labia[ICD9: 624.8] Chaparrita Flanagan MD, [facility] CPT- 4: 93914 08/09/2011 43192 EST. PATIENT, LEVEL IV Diagnosis: HYPOTHYROIDISM[ICD9: 244.9] Diagnosis: HYPERLIPIDEMIA[ICD9: 272.4] Diagnosis: BP (high blood pressure)[SNOMED: 72469693] Diagnosis: Knee pain, bilateral[ICD9: 719.46] Diagnosis: ESOPHAGEAL REFLUX[ICD9: 530.81] Concepción Flanagan MD, [facility] CPT-4: 13162 05/04/2011 32687 EST. PATIENT, LEVEL III Diagnosis: ACUTE URI[ICD9: 465.9] Diagnosis: Asthma[ICD9: 493.90] Diagnosis: Esophageal reflux[ICD9: 530.81] Chaparrita Flanagan MD, [facility] CPT- 4: 92955 04/19/2011 Plan of Care Planned Activity Notes [...] pain occurs at the site of injection. enioalog shot in bilateral SI joints today 03/11/2019 Appointment: [phone] (15 min) Moderate 03/11/2019 Patient Education: [...] time. 09/03/2018 Appointment: [phone] (15 min) Moderate 09/03/2018 Patient Education: [...] and back. 05/29/2018 Appointment: Concepción Flanagan WPtel: [facility] (15 min) Moderate 05/29/2018 Patient Education: Patient Medication Summary Completed 05/29/2018 Care Plan: Referral Order SNOMED-CT : 770830103 Pending 05/29/2018 Visit Plan: Wound Instructions - [...] removal process. 02/06/2018 Appointment: Hayley London WPtel: [phone] [facility] (15 min) Moderate 02/06/2018 Patient Education: Patient [...] to medications. 01/23/2018 Appointment: Concepción Flanagan [facility]el[facility] [phone] [facility] [place] (15 min) Moderate 01/23/2018 Patient Education: Patient Medication Summary Completed 01/23/2018 Visit Plan: Cough - improved - sinu sitis resolved. 09/26/2017 Appointment: Concepción Flanagan WPtel: [phone] [facility] [place] (15 min) Moderate 09/26/2017 Patient Education: Patient Medication Summary Completed 09/26/2017 Visit Plan: Acute Maxillary Sinusit is - if not improving - pt would like to see an ENT - Hortensia Tompkins in [place] [employer]. Treatment as follows: cefdinir - antibiotic twice [...] refilled hydrocodone. 09/12/2017 Appointment: Concepción Flanagan WPtel: [address] [place], [place] [address] (15 min) Moderate 09/12/2017 Patient Education: Patient [...] nasal steroid allergy spray. 08/31/2017 Appointment: [phone] (30 min) Complex 08/31/2017 Patient Education: Patient Medication Summary Completed 08/31/2017 Visit Plan: URI - Pt advised to inc rease fluids, vitamin C. Discussed natural and expected course of this diagnosis and need to alert me if symptoms do not follow expected course, or if any worse. RX sent to patient's pharmacy. 08/09/2017 Appointment: Chaparrita Arrieta WPtel: [phone] [facility] [place] (30 min) Complex 08/09/2017 Patient Education: [...] refilled hydrocodone. 05/07/2017 Appointment: Concepción Flanagan [facility] [phone] [facility] [place] (15 min) Moderate 05/07/2017 Patient [...] surrogate. 04/12/2017 Appointment: Hayley London [facility]Ptel[facility] [phone] [facility] [facility] - Annual Wellness Visit 04/12/2017 Patient Education: Patient Medication Summary Completed 04/12/2017 Appointment: Nurse Visit 02/15/2017 Patient Education: Patient Medication Summary Completed 02/15/2017 Visit Plan: Ovhtc-phbtcigvqk-ftqwi zpack when finished with cipro-follow up chest [...] up Sunday02/02/2017 Appointment: Chaparrita Arrieta WPtel: [phone] [phone] (15 min) Moderate 02/02/2017 Patient Education: Patient Medication Summary Completed 02/02/2017 Patient Education: Obesity Completed 02/02/2017 Visit Plan: Sinusitis - Pt has acut e infection - pain in face, maxillary region, Pt informed to use decongestant, RX given to patient, sinus rinses also recommended. Call if symptoms do not show improvement. 01/15/2017 Appointment: Chaparrita Arrieta WPtel[facility] [phone] [phone] [place] (10 min) Simple 01/15/2017 Patient Education: Patient [...] shot today 01/04/2017 Appointment: Concepción Flanagan [facility]Ptel[facility] [phone] [facility] (15 min) Moderate 01/04/2017 Patient Education: [...] medication (lexapro). 09/07/2016 Appointment: Concepción Flanagan [facility]el[facility] [phone] [facility] (30 min) Complex 09/07/2016 Patient Education: Patient Medication Summary Completed 09/07/2016 Patient Education: Obesity Completed 09/07/2016 Appointment: Injection 08/23/2016 Patient Education: Patient Medication Summary Completed 08/23/2016 Visit Plan: Hypertension - well con heideed - continue with current medications, continue with no added salt diet. Pt has been encouraged to exercise daily. The pt has been advised to call the office if there are any acute concerns about change in blood pressure readings at home. 07/06/2016 Appointment: Concepción Flanagan [facility]Ptel[facility] [phone] [facility] [place] (15 min) Moderate 07/06/2016 Patient Education: Patient Medication Summary Completed 07/06/2016 Patient Education: Obesity Completed 07/06/2016 Appointment: Nurse Visit 06/16/2016 Patient Education: Patient Medication Summary Completed 06/16/2016 Visit Plan: Hypertension - well con fabriziolled - continue with current medications, continue with [...] DAILY 06/08/2016 Appointment: Concepción Flanagan WPtel: [phone] [facility] [place] (15 min) Moderate 06/08/2016 Patient Education: Patient Medication Summary Completed 06/08/2016 Visit Plan: continue with benicar 4 0mg, and increase her diltiazem to 240mg daily 04/17/2016 Appointment: Nurse Visit 04/17/2016 Patient Education: Patient Medication Summary Completed 04/17/2016 Patient Education: Hypertension Completed 04/17/2016 Visit Plan: Hypertension - well con tropercyed - continue with current medications, continue with [...] edema. 04/06/2016 Appointment: Concepción Flanagan [facility]Ptel[facility] [phone] [facility] (15 min) Moderate 04/06/2016 Patient Education: [...] for Mikala. 01/18/2016 Appointment: Concepción Flanagan WPtel: [address] [place] [address] (15 min) Moderate 01/18/2016 Patient Education: Patient [...] daytime fatigue improved-will fax today's note to [employer] for re- certification of oxygen. 09/09/2015 [...] daytime fatigue improved-will fax today's note to [employer] for re- certification of oxygen. 09/09/2015 [...] discuss with her son who is a [employer] - and consider re-evaluation for nasal pillows with her cpap since she could not tolerate a face mask cpap in the past. 12/25/2014 Appointment: Concepción Flanagan WPtel: [facility] Follow up 12/25/2014 Patient Education: Patient [...] home. 10/13/2014 Appointment: Concepción Flanagan [facility]Ptel[facility] [phone] [facility] Follow up 10/13/2014 Patient Education: Patient Medication Summary Completed 10/13/2014 Patient Education: Hypertension Completed 10/13/2014 Visit Plan: Hypertension - well con octavia - continue with current medications, continue with [...] . 08/28/2014 Appointment: Concepción Flanagan [facility]Ptel[facility] [phone] [facility] Follow up 08/28/2014 Patient Education: Patient [...] creatinine. 04/16/2014 Appointment: Concepción Flanagan WPtel: [phone] [facility] Follow up 04/16/2014 Patient Education: Patient Medication Summary Completed 04/16/2014 Patient Education: Patient Medication Summary Completed 04/14/2014 Patient Education: Hypertension Completed 04/14/2014 Visit Plan: Wound Instructions - Pt was instruced to keep the wound clean, wash with antibacterial soap, use triple antibiotic ointment, call if redness, pustular drainage, or any other acute conerns. 01/27/2014 Appointment: Concepción Flanagan WPtel[facility] [phone] [facility] Surgical Procedure 01/27/2014 Patient Education: Patient [...] home eval. 01/21/2014 Appointment: Concepción Flanagan WPtel: [phone] [facility] Follow up 01/21/2014 Patient Education: Patient Medication Summary Completed 01/21/2014 Patient Education: Hypertension Completed 01/21/2014 Visit Plan: Hypotension - Bradycard ia - pt to stop her metroprolol - check bp and heart rate twice daily and monitor symptoms. Call if bp uncontrolled- or heart rate to elevated. 01/07/2014 Appointment: Concepción Flanagan WPtel: [facility] Follow up 01/07/2014 Patient Education: Hypertension Completed [...] swallow 11/12/2013 Appointment: Chaparrita Arrieta WPtel: [phone] [phone] [facility] 11/12/2013 Patient Education: Patient Medication Summary Completed 11/12/2013 Patient Education: Hypertension Completed 11/12/2013 Visit Plan: Sinusitis - Pt has acut e infection - pain in face, maxillary region, Pt informed to use decongestant, RX given to patient, sinus rinses also recommended. Call if symptoms do not show improvement. 10/09/2013 Appointment: Chaparrita Arrieta WPtel: [phone] [phone] [facility] 10/09/2013 Patient Education: Patient Medication Summary Completed [...] check UA 04/03/2013 Appointment: Concepción Flanagan WPtel: [facility] Follow up 04/03/2013 Patient Education: Patient Medication Summary Completed 04/03/2013 Patient Education: Hypertension Completed 04/03/2013 Patient Education: Patient Medication Summary Completed 03/31/2013 Patient Education: Hypertension Completed 03/31/2013 Visit Plan: ua performed - sent for culture if indicated. 03/21/2013 Appointment: Concepción Flanagan WPtel: [facility] Lab Draw 03/21/2013 Patient Education: Patient Medication [...] peripheral edema. 01/06/2013 Appointment: Concepción Flanagan WPtel: [phone] [facility] Follow up 01/06/2013 Patient Education: Patient Medication Summary Completed 01/06/2013 Patient Education: Hypertension Completed 01/06/2013 Visit Plan: Wacqlrcnm-Aogzjx-yabsze ms not well controlled- KENALOG injection today [...] edema. 10/28/2012 Appointment: Concepción Flanagan WPtel: [address] [place], [place] [id number] Follow up 10/28/2012 Patient Education: Patient Medication [...] treatment recommendations. 09/30/2012 Appointment: Concepción Flanagan WPtel: [facility]5 [facility] Follow up 09/30/2012 Patient Education: Patient Medication Summary Completed 09/30/2012 Patient Education: Hypertension Completed 09/30/2012 Appointment: Concepción Flanagan WPtel: [facility] [place] Lab Draw 09/11/2012 Patient Education: Patient [...] - resolved 08/14/2012 Appointment: Concepción Flanagan WPtel: [facility] Follow up 08/14/2012 Patient Education: Patient Medication Summary Completed 08/14/2012 Patient Education: Hypertension Completed 08/14/2012 Visit Plan: Cellulitis - start with generic Bactrim DS as directed, return to clinic as previously directed, call for acute change in symptoms, worsening redness, warmth, discharge. 08/05/2012 Appointment: Concepción Flanagan WPtel: [phone] [facility] Follow up 08/05/2012 Patient Education: Patient Medication [...] stools. 07/15/2012 Appointment: Concepción Flanagan WPtel: [phone] [facility] [facility] follow up 07/15/2012 Patient Education: [...] the nail. 05/27/2012 Appointment: Concepción Flanagan WPtel: [facility]5 [facility] Other 05/27/2012 Patient Education: Patient Medication Summary Completed 05/27/2012 Appointment: Chaparrita Arrieta WPtel: [phone] [phone] Follow up 05/16/2012 Visit Plan: Obesity - [...] vaccine 05/03/2012 Appointment: Chaparrita Arrieta WPtel: [phone] [phone] Follow up 05/03/2012 Patient Education: Patient Medication Summary Completed 05/03/2012 Visit Plan: Wound Instructions - Pt was instruced to keep the wound clean, wash with antibacterial soap, use triple antibiotic ointment, call if redness, pustular drainage, or any other acute conerns. 04/23/2012 Appointment: Concepción Flanagan WPtel: [facility]5 [facility] Surgical Procedure 04/23/2012 Patient Education: Patient Medication Summary Completed 04/23/2012 Appointment: Concepción Flanagan WPtel: [address] [place], [place] [phone] Lab Draw 04/16/2012 Patient Education: Patient Medication [...] readings at home. Recommend follow up with bath mixer for clearance before knee surgery. Will get [...] thighs. 03/25/2012 Appointment: Concepción Flanagan WPtel: [phone] [facility] [place] Other 03/25/2012 Patient Education: Patient Medication [...] lesion. 03/12/2012 Appointment: Chaparrita Arrieta [facility]Ptel: [phone] [place] Other 03/12/2012 Patient Education: Patient Medication [...] at home. 01/23/2012 Appointment: Concepción Flanagan WPtel: [facility] Other 01/23/2012 Patient Education: Patient Medication Summary Completed 01/23/2012 Patient Education: High Blood Pressure: Essential Hypertension Completed 01/23/2012 Visit Plan: Breast zmxg-gcka-ouigaa sed natural and expected course of this diagnosis and to alert me if symptoms do not follow expected course, or if any worse. Plan for diagnostic mammogram, in meantime, instructed patient to get more supportive bra, use anti-inflammatories and monitor symptoms. Patient verbalized understanding of plan. 01/12/2012 Appointment: Chaparrita Arrieta WPtel: [phone] Other 01/12/2012 Patient Education: Patient Medication Summary [...] current medications. 12/25/2011 Appointment: Concepción Flanagan WPtel: [facility] Other 12/25/2011 Patient Education: Patient Medication [...] SOCKS. 12/04/2011 Appointment: Con[facility]pc[facility] Flanagan [facility]Ptel: [phone] [facility] [place] Other 12/04/2011 Patient Education: Patient Medication Summary Completed 12/04/2011 Patient Education: High Blood Pressure: Essential Hypertension Completed 12/04/2011 Appointment: Chaparrita Arrieta [facility]Ptel: [phone] [phone] [place] Lab Draw 12/01/2011 Patient Education: Patient Medication Summary Completed 12/01/2011 Appointment: Concepción Flanagan [facility]Ptel: [phone] [facility] [place] Lab Draw 11/20/2011 Patient Education: [...] acutely worsen. 09/20/2011 Appointment: Concepción Flanagan WPtel: [address] [place] [address] Other 09/20/2011 Patient Education: Patient Medication Summary Completed 09/20/2011 Patient Education: High Blood Pressure: Essential Hypertension Completed 09/20/2011 Appointment: Concepción Flanagan WPtel: [address] [place] [address] Other 09/13/2011 Visit Plan: Hypertension - The [...] benefits of treament with the above medications. Yuagytc-pqehnzer-FP negative 09/06/2011 Appointment: Chaparrita Arrieta WPtel: [phone] [facility] [place] [address] Other 09/06/2011 Patient Education: Patient Medication Summary [...] they worsen. 08/30/2011 Appointment: Concepción Flanagan WPtel: [facility] Other 08/30/2011 Patient Education: Patient Medication [...] patient's pharmacy. 08/23/2011 Appointment: Chaparrita Arrieta WPtel: [phone] [phone] Other 08/23/2011 Patient Education: Patient Medication Summary Completed 08/23/2011 Visit Plan: Labial cyst-discussed n atural and expected course of this diagnosis and to alert me if symtpoms do not follow expected course, or if any worse. Patient and verbalized understanding. 08/09/2011 Appointment: Chaparrita Arrieta WPtel: [phone] [facility] [place] [address] Other 08/09/2011 Patient Education: Patient Medication Summary [...] improving. 05/04/2011 Appointment: Concepción Flanagan WPtel: [phone] [facility] Other 05/04/2011 Patient Education: Patient Medication Summary [...] 40mg daily. 04/19/2011 Appointment: Chaparrita Arrieta WPtel: [phone] Other 04/19/2011 Patient Education: Patient Medication Summary Completed 04/19/2011 Referral: External, Ordering Provider Referral Appointment Requested Instructions Comment . Medicare Exam - to day [...] do not improve, or if any worse.. Kdxffvhra-Zssrzh-ezlgffxd not well controlled-KENALOG injection today in the [...] see an ENT - Hortensia Tompkins in [place] [employer]. Treatment as follows: cefdinir - antibiotic twice [...] discuss with her son who is a [employer] - and consider re-evaluation for nasal pillows [...] twice daily and monitor symptoms. . Breast zzjy-dayh-mqhiyloou natural and expected course of this diagnosis [...] benefits of treament with the above medications. Ghkbpwp-ghnhogwr-CU negative . Hypertension - wel l controlled [...] readings at home. Recommend follow up with bath mixer for clearance before knee surgery. Will get [...] daytime fatigue improved-will fax today's note to [employer] for re-certification of oxygen. . Hypertension - [...] daytime fatigue improved-will fax today's note to [employer] for re-certification of oxygen. . Sinusitis - [...] worse. RX sent to patient's pharmacy. . Kjquv-qhjdnehwqz-x tart zpack when finished with cipro- follow up chest xray on Sunday UTI-finish cipro and repeat UA . Hypertension - wel l controlled [...]
[2020-01-05] MEDS ORDERED: NS IV 1000 ML 1,000 ML ONE (01:30)
--- OUTSIDE RECORDS SUMMARY | 2020-01-05 01:30 | XMS REPORT | CCD ---
Author Author Mikala Arrieta Organization Concepción Flanagan MD, [facility] Address [address] [place] [address] Phone Care Team Providers Care Igniter Assembler Name Role Phone Concepción Flanagan PP Unavailable CCM Unavailable Summary Purpose Interface Exchange Insurance Providers Payer name Policy type / Coverage type Covered republican ID Effective Begin Date Effective End Date WPS Medicare Part B Medicare Part B [id number] Unknown AARP Medicare Part B [id number] Unknown Family history Son Diagnosis Age At [...] M arried 04/19/[address]: 7820340 Quit over 10 years ago 40 pack/year [...] Date Active prednisone 10 mg tablet RxNorm: 395139 2 Tablet(s) PO daily 03/11/2019 03/15/2019 Active doxycycline hyclate 100 mg tablet RxNorm: 5691989 1 Tablet(s) PO BID 03/11/2019 03/20/2019 Active Klor-Con 10 mEq tabl et,extended release RxNorm: 979586 Tablet(s) TAKE ONE TA BLET BY MOUTH DAILY 03/05/2019 11/29/2019 Active Klor-Con 10 mEq tabl et,extended release RxNorm: 470774 Tablet(s) TAKE ONE TA BLET BY MOUTH DAILY 03/05/2019 03/04/2019 Inactive Lasix 40 mg tablet RxNorm: 682973 TAKE ONE TABLET BY MOUTH DAILY 12/24/2018 06/21/2019 Ac tive Crestor 10 mg tablet RxNorm: 706515 TAKE 1 TABLET BY MOUTH ON SUNDAY, , AND Sunday12/03/2018 05/31/2019 Active Atacand 16 mg tablet RxNorm: 349536 1 Tablet(s) PO daily 11/06/2018 10/31/2019 Active replaces benicar Atacand 16 mg tablet RxNorm: 786011 1 Tablet(s) PO daily 11/06/2018 11/05/2018 Inactive replaces benicar meloxicam 15 mg tablet RxNorm: 615163 TAKE ONE TABLET BY MOUTH DAILY 10/08/2018 03/30/2020 Ac tive ProctoCream-HC 2.5 % rectal cream with applicator RxNorm: 260654 APPLY TO AFFECTED AREAS DIRECTED RTL 10/01/2018 No Stop Date Active Cartia XT 240 mg cap chad,extended release RxNorm: 986802 TAKE ONE CAPSULE BY M OUTH DAILY 09/23/2018 09/17/2019 Active Singulair 10 mg tablet RxNorm: 442662 TAKE ONE TABLET BY MOUTH EVERY DAY 09/06/2018 10/30/2019 Ac tive Klor-Con 10 mEq tabl et,extended release RxNorm: 542619 TAKE ONE TABLET BY MO UTH TWICE A DAY 09/06/2018 03/04/2019 Inactive Xanax 0.25 mg tablet RxNorm: 822608 1-2 Tablet(s) PO QHS as needed insomnia 08/26/2018 11/23/2018 In active Voltaren 1 % topical gel RxNorm: 565861 APPLY TWO GRAMS TOPIC ALLY FOUR TIMES A DAY BILATERAL KNEES AND LOWER BACK 06/26/2018 09/23/2018 Inactive Lasix 40 mg tablet RxNorm: 533593 TAKE ONE TABLET BY MOUTH DAILY 06/20/2018 12/16/2018 In active Voltaren 1 % topical gel RxNorm: 841450 2 Gram(s) TOP QID basilia ateral knees and low back 05/29/2018 06/25/2018 Inactive Synthroid 50 mcg tablet RxNorm: 234155 Tablet(s) TAKE ONE TABLET BY MOUTH DAILY 05/17/2018 11/12/2018 In active Synthroid 50 mcg tablet RxNorm: 575223 TAKE ONE TABLET BY MOUTH DAILY 05/16/2018 05/16/2018 In active hydrocodone 5 mg-patrizia taminophen 325 mg tablet RxNorm: 678969 1/2 Tablet(s) PO QID as needed 05/15/2018 06/13/2018 Inactive Keflex 500 mg capsule RxNorm: 576681 1 Capsule(s) PO TID PRN 04/30/2018 05/06/2018 Inactive Silvadene 1 % topica l cream RxNorm: 632599 1 Application TOP BID 04/30/2018 05/09/2018 Inactive Anusol-HC 25 mg rect al suppository RxNorm: 2459693 1 Suppository PRN IN SERT 1 RECTALLY DAILY NEEDED 04/25/2018 No Stop Date Active Colace 100 mg capsule RxNorm: 7270132 1 Capsule(s) PO daily as needed 04/25/2018 No Stop Date Active Silvadene 1 % topica l cream RxNorm: 186111 1 Application TOP BID 04/25/2018 04/29/2018 Inactive meloxicam 15 mg tablet RxNorm: 014103 1 Tablet(s) PO daily TAKE ONE TABLET BY MOUTH ONE TIME A DAY 04/25/2018 10/07/2018 Inactive Benicar 40 mg tablet RxNorm: 748088 TAKE ONE TABLET BY MOUTH DAILY 04/04/2018 11/05/2018 In active Xanax 0.25 mg tablet RxNorm: 857227 1-2 Tablet(s) PO QHS as needed insomnia 03/07/2018 06/04/2018 In active Lasix 40 mg tablet RxNorm: 474290 TAKE ONE TABLET BY MOUTH DAILY 01/07/2018 06/19/2018 In active Crestor 10 mg tablet RxNorm: 911710 TAKE 1 TABLET BY MOUTH ON SUNDAY, , AND Sunday11/20/2017 05/18/2018 Inactive Synthroid 50 mcg tablet RxNorm: 686099 TAKE ONE TABLET BY MOUTH DAILY 11/14/2017 05/12/2018 In active Diflucan 150 mg tablet RxNorm: 723327 1 Tablet(s) PO daily 09/12/2017 09/25/2017 Inactive cefdinir 300 mg capsule RxNorm: 315264 1 Capsule(s) PO BID 09/12/2017 09/25/2017 Inactive Cartia XT 240 mg cap chad,extended release RxNorm: 451649 TAKE ONE CAPSULE BY [facility] DAILY 09/12/2017 09/06/2018 Inactive prednisone 20 mg tablet RxNorm: 321697 2 Tablet(s) PO daily 08/31/2017 09/04/2017 Inactive Xanax 0.25 mg tablet RxNorm: 826703 1-2 Tablet(s) PO QHS as needed insomnia 08/28/2017 11/24/2017 In active Keflex 500 mg capsule RxNorm: 580378 1 Capsule(s) PO TID 08/28/2017 08/27/2017 Inactive Keflex 500 mg capsule RxNorm: 444026 1 Capsule(s) PO TID 08/28/2017 09/03/2017 Inactive Klor-Con 10 mEq tabl et,extended release RxNorm: 623557 TAKE ONE TABLET BY [facility] TWICE A DAY 08/23/2017 08/17/2018 Inactive cefdinir 300 mg capsule RxNorm: 073981 1 Capsule(s) PO BID 08/13/2017 08/12/2017 Inactive cefdinir 300 mg capsule RxNorm: 411715 1 Capsule(s) PO BID 08/13/2017 08/19/2017 Inactive Kenalog 40 mg/mL heaven pension for injection RxNorm: 5731612 1 Milliliter(s) Inj 08/09/2017 08/09/2017 In active ceftriaxone 500 mg s olution for injection RxNorm: 5943867 Inj 08/09/2017 08/09/2017 Inactive Zithromax Z-Hebert 250 mg tablet RxNorm: 049741 1 Tablet(s) PO UD 08/09/2017 08/13/2017 Inactive Singulair 10 mg tablet RxNorm: 752860 TAKE ONE TABLET BY MOUTH EVERY DAY 08/03/2017 09/05/2018 In active Xanax 0.25 mg tablet RxNorm: 871486 1-2 Tablet(s) PO QHS as needed insomnia 07/25/2017 05/28/2018 In active Benicar 40 mg tablet RxNorm: 191673 TAKE ONE TABLET BY MOUTH DAILY 07/09/2017 04/03/2018 In active Lasix 40 mg tablet RxNorm: 929232 TAKE ONE TABLET BY MOUTH DAILY 07/09/2017 01/04/2018 In active Synthroid 50 mcg tablet RxNorm: 852780 1 Tablet(s) PO daily TAKE ONE TABLET BY MOUTH DAILY 05/21/2017 11/13/2017 Inactive Must be name brand Lasix 40 mg tablet RxNorm: 725049 TAKE ONE TABLET BY MOUTH DAILY 04/12/2017 07/08/2017 In active Zithromax Z-Hebert 250 mg tablet RxNorm: 050632 1 Tablet(s) PO UD 02/05/2017 02/09/2017 Inactive start with finished with cipro Cipro 500 mg tablet RxNorm: 650138 1 Tablet(s) PO BID 02/01/2017 02/07/2017 Inactive prednisone 20 mg tablet RxNorm: 358330 1 Tablet(s) PO BID 01/15/2017 01/19/2017 Inactive take 1 in the morning and 1 at noon calcium carbonate 60 0 mg calcium (1,500 mg) tablet RxNorm: 828282 1 Tablet(s) PO daily 01/04/2017 No Stop Date Active Kenalog 40 mg/mL heaven pension for injection RxNorm: 4669987 1 Milliliter(s) Inj 01/04/2017 01/04/2017 In active Anusol-HC 25 mg rect al suppository RxNorm: 6540036 1 Suppository PRN IN SERT 1 RECTALLY DAILY NEEDED 01/04/2017 04/03/2017 Inactive Lasix 40 mg tablet RxNorm: 424572 TAKE ONE TABLET BY MOUTH DAILY 12/20/2016 04/11/2017 In active Cartia XT 240 mg cap chad,extended release RxNorm: 994760 TAKE ONE CAPSULE BY M [facility] DAILY 12/20/2016 09/11/2017 Inactive Synthroid 50 mcg tablet RxNorm: 736971 1 Tablet(s) PO daily TAKE ONE TABLET BY MOUTH DAILY 11/27/2016 05/20/2017 Inactive Must be name brand meloxicam 15 mg tablet RxNorm: 202760 Tablet(s) TAKE ONE TABLET BY MOUTH ONE T MARÍA ELENA A DAY 11/27/2016 06/24/2017 Inactive Crestor 10 mg tablet RxNorm: 447422 TAKE 1 TABLET BY MOUTH ON SUNDAY, , AND Sunday11/13/2016 10/14/2017 Inactive Lexapro 10 mg tablet RxNorm: 033788 1 Tablet(s) PO daily 09/07/2016 01/03/2017 Inactive please make sure that her RX for lexapro is a 10mg dose - delete the 5mg lexapro pill - this is FYI Klor-Con 10 mEq tabl et,extended release RxNorm: 866591 TAKE ONE TABLET BY MO [facility] TWICE A DAY 08/29/2016 02/24/2017 Inactive Kenalog 40 mg/mL heaven pension for injection RxNorm: 6756118 Milliliter(s) Inj 08/23/2016 08/23/2016 In active cefdinir 300 mg capsule RxNorm: 839579 1 Capsule(s) PO BID 08/22/2016 08/28/2016 Inactive take probiotic while on abx Zithromax Z-Hebert 250 mg tablet RxNorm: 086288 1 Tablet(s) PO UD 08/11/2016 09/06/2016 Inactive Z PACK DIRECTED Lexapro 5 mg tablet RxNorm: 797771 TAKE ONE TABLET BY MOUTH EVERY EVENING 07/18/2016 09/06/2016 In active Singulair 10 mg tablet RxNorm: 057702 TAKE ONE TABLET BY MOUTH EVERY DAY 07/17/2016 08/02/2017 In active Benicar 40 mg tablet RxNorm: 511475 TAKE ONE TABLET BY MOUTH DAILY 07/17/2016 07/08/2017 In active Lexapro 10 mg tablet RxNorm: 256167 1 Tablet(s) PO daily 06/16/2016 09/06/2016 Inactive diltiazem ER 180 mg capsule,extended release RxNorm: 808605 TAKE ONE CAPSULE BY M OUTH DAILY 06/15/2016 07/05/2016 Inactive Lexapro 10 mg tablet RxNorm: 506583 1 Tablet(s) PO daily 06/08/2016 06/15/2016 Inactive gabapentin 600 mg ta blet RxNorm: 152775 TAKE ONE TABLET BY MO UTH EVERY NIGHT AT BEDTIME NEEDED 04/27/2016 04/11/2017 Inactive Cartia XT 240 mg cap chad,extended release RxNorm: 122035 1 Capsule(s) PO daily TAKE ONE CAPSULE BY MOUTH ONCE A DAY 04/17/2016 12/19/2016 Inactive Benicar 40 mg tablet RxNorm: 502613 1 Tablet(s) PO daily 04/17/2016 07/16/2016 Inactive she can do 90 days if she wants to Lexapro 5 mg tablet RxNorm: 030278 1 Tablet(s) PO QPM 03/09/2016 06/07/2016 Inactive Synthroid 50 mcg tablet RxNorm: 240262 1 Tablet(s) PO daily TAKE ONE TABLET BY MOUTH DAILY 01/18/2016 07/15/2016 Inactive Colace 100 mg capsule RxNorm: 2073309 1 Capsule(s) PO daily 01/18/2016 04/24/2018 Inactive hydrocodone 5 mg-patrizia taminophen 325 mg tablet RxNorm: 225055 1/2 Tablet(s) PO QID as needed 01/18/2016 02/16/2016 Inactive Synthroid 50 mcg tablet RxNorm: 692628 Tablet(s) TAKE ONE TABLET BY MOUTH DAILY 12/23/2015 01/17/2016 In active Benicar 40 mg tablet RxNorm: 401754 1 Tablet(s) PO daily 12/13/2015 12/12/2015 Inactive Benicar 40 mg tablet RxNorm: 860148 1 Tablet(s) PO daily 12/13/2015 04/10/2016 Inactive meloxicam 15 mg tablet RxNorm: 065375 TAKE ONE TABLET BY MOUTH ONE TIME A DAY 11/12/2015 06/08/2016 In active meloxicam 15 mg tablet RxNorm: 667782 Tablet(s) TAKE ONE TABLET BY MOUTH ONE T MARÍA ELENA A DAY 11/11/2015 11/11/2015 Inactive Lasix 40 mg tablet RxNorm: 594206 Tablet(s) TAKE ONE TABLET BY MOUTH EVERY DAY 10/19/2015 12/19/2016 Inactive diltiazem ER 180 mg capsule,extended release RxNorm: 853281 1 Capsule(s) daily TA KE ONE CAPSULE BY MOUTH ONCE A DAY 09/27/2015 04/16/2016 Inactive Crestor 10 mg tablet RxNorm: 253899 1 Tablet(s) PO Sun09/17/2015 07/12/2016 Inactive [SAVINGS FOR UNINSURED PATIENTS -- BIN:0 99034, PCN: ASPROD1, Group: [id number], ID# [id number], Process claim through [employer], for questions: . THIS IS NOT INSURANCE.] hydrocodone 5 mg-patrizia taminophen 325 mg tablet RxNorm: 379545 1-2 Tablet(s) PO Q6 P RN 09/09/2015 10/08/2015 In active Micardis 80 mg tablet RxNorm: 137298 1 Tablet(s) PO daily TAKE ONE TABLET BY MOUTH DAILY 08/23/2015 12/12/2015 Inactive Klor-Con 10 mEq tabl et,extended release RxNorm: 847904 Tablet(s) TAKE ONE TA BLET BY MOUTH TWICE A DAY 08/23/2015 02/18/2016 Inactive Synthroid 50 mcg tablet RxNorm: 384779 TAKE ONE TABLET BY MOUTH DAILY 07/06/2015 12/22/2015 In active meloxicam 15 mg tablet RxNorm: 778818 TAKE ONE TABLET BY MOUTH ONE TIME A DAY 06/22/2015 11/10/2015 In active Singulair 10 mg tablet RxNorm: 481760 TAKE ONE TABLET BY MOUTH EVERY DAY 05/18/2015 07/16/2016 In active Micardis 80 mg tablet RxNorm: 593607 TAKE ONE TABLET BY MOUTH DAILY 02/22/2015 05/04/2015 In active gabapentin 600 mg ta blet RxNorm: 726372 1 Tablet(s) PO HS as needed 01/15/2015 01/09/2016 Inactive [SAVINGS FOR NON-COVERED DRUGS -- BIN:00 3585, PCN: ASPROD1, Group: [id number], ID# [id number], Questions: . THIS IS NOT INSURANCE.] diltiazem ER 180 mg capsule,extended release RxNorm: 618389 TAKE ONE CAPSULE BY M OUTH ONCE A DAY 01/07/2015 09/26/2015 Inactive meloxicam 15 mg tablet RxNorm: 923179 TAKE ONE TABLET BY MOUTH ONE TIME A DAY 11/09/2014 05/07/2015 In active gabapentin 600 mg ta blet RxNorm: 924977 1 Tablet(s) PO HS as needed 10/13/2014 01/14/2015 Inactive [SAVINGS FOR UNINSURED PATIENTS -- BIN:0 48012, PCN: ASPROD1, Group: [id number], ID# [id number], Process claim through [employer], for questions: . THIS IS NOT INSURANCE.] omeprazole 20 mg tab let,delayed release RxNorm: 282374 1 Tablet(s) PO daily 10/13/2014 11/11/2014 In active Synthroid 50 mcg tablet RxNorm: 048301 TAKE ONE TABLET BY MOUTH EVERY DAY 10/12/2014 01/09/2015 In active Synthroid 50 mcg tablet RxNorm: 320083 Tablet(s) TAKE ONE TABLET BY MOUTH EVERY DAY 10/12/2014 10/11/2014 Inactive [SAVINGS FOR UNINSURED PATIENTS -- BIN:0 73615, PCN: ASPROD1, Group: [id number], ID# [id number], Process claim through [employer], for questions: . THIS IS NOT INSURANCE.] Lasix 40 mg tablet RxNorm: 613856 Tablet(s) PO TAKE ONE TABLET BY MOUTH TW ICE A DAY FOR 3 DAYS, THEN RESUME ONE DAILY EXCEPT ON WEDNESDAYS AND FRIDAYS TAKE ONE TWICE DAILY 09/22/2014 05/28/2018 Inactive [SAVINGS FOR UNINSURED ARTURO ENTS -- BIN:266470, PCN: ASPROD1, Group: [id number], ID# [id number], Process claim through [employer], for questions: . THIS IS NOT INSURANCE.] Lasix 40 mg tablet RxNorm: 094741 TAKE ONE TABLET BY MOUTH EVERY DAY 09/22/2014 10/18/2015 In active Crestor 10 mg tablet RxNorm: 041528 1 Tablet(s) PO Sun08/28/2014 04/24/2015 Inactive [SAVINGS FOR UNINSURED PATIENTS -- BIN:0 31629, PCN: ASPROD1, Group: [id number], ID# [id number], Process claim through [employer], for questions: . THIS IS NOT INSURANCE.] Crestor 10 mg tablet RxNorm: 131895 1 Tablet(s) PO Sun08/28/2014 08/27/2014 Inactive [SAVINGS FOR UNINSURED PATIENTS -- BIN:0 32532, PCN: ASPROD1, Group: [id number], ID# [id number], Process claim through [employer], for questions: . THIS IS NOT INSURANCE.] Micardis 80 mg tablet RxNorm: 065114 TAKE ONE TABLET BY MOUTH EVERY DAY 08/24/2014 12/21/2014 In active Zithromax Z-Hebert 250 mg tablet RxNorm: 663481 Tablet(s) PO UD 08/14/2014 08/18/2014 Inactive 2 tabs day 1, 1 tabs days 2-5 Anusol-HC 25 mg supp ository RxNorm: 6212027 INSERT 1 RECTALLY DA GUSTAVO NEEDED 07/13/2014 10/10/2014 In active Klor-Con 10 mEq tabl et,extended release RxNorm: 449656 TAKE ONE TABLET BY [facility] TWICE A DAY 06/18/2014 12/14/2014 Inactive Lomotil 2.5 mg-0.025 mg tablet RxNorm: 5456425 1 Tablet(s) PO PRN a fter each loose stool max 8 per day 06/15/2014 10/12/2014 Inactive one after each loose bm juarez it 8 per day albuterol sulfate HF A 90 mcg/actuation aerosol inhaler RxNorm: 3900547 1 or2 Puff(s) INH Q4 PRN as needed 05/11/2014 05/10/2014 Inactive albuterol sulfate HF A 90 mcg/actuation aerosol inhaler RxNorm: 8681569 1 or2 Puff(s) INH Q4 PRN as needed 05/11/2014 01/03/2017 Inactive Premarin 0.625 mg/gr am vaginal cream RxNorm: 122253 1/2 Gram(s) VAG every other day 05/11/2014 12/06/2014 In active Premarin 0.625 mg/gr am vaginal cream RxNorm: 103127 1/2 Gram(s) VAG every other day 05/11/2014 05/10/2014 In active cefdinir 300 mg capsule RxNorm: 295191 1 Capsule(s) PO BID 05/07/2014 05/16/2014 Inactive Rocephin 500 mg solu tion for injection RxNorm: 547164 1 Milliliter(s) Inj 05/07/2014 05/07/2014 In active Singulair 10 mg tablet RxNorm: 262885 TAKE ONE TABLET BY MOUTH EVERY DAY 04/30/2014 10/12/2014 In active meloxicam 15 mg tablet RxNorm: 584946 1 Tablet(s) PO daily 04/16/2014 11/08/2014 Inactive Crestor 10 mg tablet RxNorm: 751692 1 Tablet(s) PO Sun TAKE ONE TAB LET BY MOUTH EVERY DAY 04/16/2014 08/27/2014 Inactive Synthroid 50 mcg tablet RxNorm: 450240 TAKE ONE TABLET BY MOUTH EVERY DAY 04/02/2014 09/28/2014 In active diltiazem ER 180 mg capsule,extended release RxNorm: 297643 1 Capsule(s) PO daily 01/05/2014 12/30/2014 In active Pennsaid 1.5 % topic al drops RxNorm: 974400 Drop(s) TOP APPLY 15 - 20 DROPS TOPICALLY FOUR TIMES A DAY 12/29/2013 01/17/2016 Inactive Rocephin 500 mg solu tion for injection RxNorm: 428049 Inj 12/2612/26/2013 Inactive Kenalog 40 mg/mL heaven pension for injection RxNorm: 4682883 Milliliter(s) Inj 12/26/2013 12/26/2013 In active Micardis 80 mg tablet RxNorm: 124311 Tablet(s) PO TAKE ONE TABLET BY MOUTH EV DEANNA DAY 12/15/2013 08/23/2014 Inactive nystatin 100,000 uni t/mL oral suspension RxNorm: 855945 4 Unit(s) PO QID swis h and swallow 11/12/2013 12/09/2013 Inactive Kenalog 40 mg/mL heaven pension for injection RxNorm: 5925479 Milliliter(s) Inj 11/12/2013 11/12/2013 In active Lasix 40 mg tablet RxNorm: 952497 Tablet(s) PO TAKE ONE TABLET BY MOUTH TW ICE A DAY FOR 3 DAYS, THEN RESUME ONE DAILY EXCEPT ON WEDNESDAYS AND FRIDAYS TAKE ONE TWICE DAILY 10/30/2013 09/21/2014 Inactive Lasix 40 mg tablet RxNorm: 298661 1 Tablet(s) PO daily 10/30/2013 10/29/2013 Inactive Rocephin 500 mg solu tion for injection RxNorm: 140528 1 Milliliter(s) Inj 10/09/2013 10/09/2013 In active metoprolol succinate ER 25 mg tablet,extended release 24 hr RxNorm: 983901 Tablet(s) PO TAKE ONE TABLET BY MOUTH EVERY DAY 10/02/2013 01/06/2014 Inactive metoprolol succinate ER 25 mg tablet,extended release 24 hr RxNorm: 236603 Tablet(s) PO TAKE ONE TABLET BY MOUTH EVERY DAY 08/04/2013 10/01/2013 Inactive Synthroid 50 mcg tablet RxNorm: 519619 Tablet(s) PO TAKE ONE TABLET BY MOUTH EV DEANNA07/14/2013 04/01/2014 Inactive gabapentin 600 mg ta blet RxNorm: 225208 1 Tablet(s) PO Q8 PRN 06/11/2013 06/11/2013 Inactive gabapentin 600 mg ta blet RxNorm: 554483 1 Tablet(s) PO Q8 PRN 06/11/2013 03/07/2014 Inactive Neurontin 600 mg tablet RxNorm: 501260 1 Tablet(s) PO Q8 PRN 06/10/2013 06/11/2013 Inactive Anusol-HC 25 mg supp ository RxNorm: 3648376 Suppository RTL INSE RT 1 RECTALLY DAILY NEEDED 04/24/2013 07/12/2014 Inactive metoprolol succinate ER 25 mg tablet,extended release 24 hr RxNorm: 344785 1 Tablet(s) PO daily 04/21/2013 08/03/2013 Inactive Premarin 0.625 mg/gr am Vaginal Cream RxNorm: 988868 1/2 Gram(s) VAG every other day 04/03/2013 10/29/2013 In active Klor-Con 10 mEq tabl et,extended release RxNorm: 820495 1 Tablet(s) PO daily 03/26/2013 03/20/2014 In active Klor-Con 10 mEq tabl et,extended release RxNorm: 607573 1 Tablet(s) PO BID 03/24/2013 03/23/2013 In active Klor-Con 10 mEq tabl et,extended release RxNorm: 523202 1 Tablet(s) PO BID 03/24/2013 03/25/2013 In active Klor-Con 10 mEq tabl et,extended release RxNorm: 380875 1 Tablet(s) PO BID 03/24/2013 03/23/2013 In active Augmentin 875 mg-125 mg tablet RxNorm: 771302 1 Tablet(s) PO BID 03/12/2013 03/18/2013 Inactive Augmentin 875 mg-125 mg tablet RxNorm: 833445 1 Tablet(s) PO BID 03/12/2013 03/11/2013 Inactive ciprofloxacin 500 mg tablet RxNorm: 328692 1 Tablet(s) PO BID 03/11/2013 03/17/2013 Inactive ciprofloxacin 500 mg tablet RxNorm: 985839 1 Tablet(s) PO BID 03/11/2013 03/10/2013 Inactive Crestor 10 mg tablet RxNorm: 452114 1 Tablet(s) PO daily 02/10/2013 02/09/2013 Inactive Crestor 10 mg tablet RxNorm: 813707 Tablet(s) PO TAKE ONE TABLET BY MOUTH EV DEANNA DAY 02/10/2013 04/15/2014 Inactive Singulair 10 mg tablet RxNorm: 004658 Tablet(s) PO TAKE ONE TABLET BY MOUTH EV DEANNA DAY 02/04/2013 04/29/2014 Inactive Kenalog 40 mg/mL Heaven p for Injection RxNorm: 1962020 1 Milliliter(s) Inj 11/21/2012 11/21/2012 In active Pennsaid 1.5 % topic al drops RxNorm: 862662 15-20 Drop(s) TOP QID 10/28/2012 11/21/2013 Inactive Micardis 80 mg tablet RxNorm: 437604 1 Tablet(s) PO daily 10/28/2012 10/22/2013 Inactive put this on file please, quantitiy incre ase Pennsaid 1.5 % Topic al Drops RxNorm: 833153 15-20 Drop(s) TOP QID 10/28/2012 10/27/2012 Inactive diltiazem ER 180 mg capsule,extended release RxNorm: 325314 1 Capsule(s) PO daily 10/14/2012 10/08/2013 In active Pyridium 200 mg tablet RxNorm: 0153278 1 Tablet(s) PO Q8 PRN 09/11/2012 10/12/2014 Inactive Flagyl 500 mg tablet RxNorm: 867169 1 Tablet(s) PO TID 09/04/2012 09/10/2012 Inactive Macrobid 100 mg capsule RxNorm: 7628698 1 Capsule(s) PO BID 09/03/2012 09/02/2012 Inactive Macrobid 100 mg capsule RxNorm: 7386419 1 Capsule(s) PO BID 09/03/2012 09/09/2012 Inactive sulfamethoxazole-tri methoprim 800 mg-160 mg tablet RxNorm: 388984 1 Tablet(s) PO BID 08/05/2012 08/14/2012 Inactive Lasix 40 mg tablet RxNorm: 224939 1 Tablet(s) PO BID pt is taking extra la six x 3 days, then every sunday and sunday take two lasix pills. 07/15/2012 07/09/2013 Inactive Synthroid 50 mcg tablet RxNorm: 563517 1 Tablet(s) PO daily 07/15/2012 07/09/2013 Inactive do not substitute the generic levothyrox ine for the synthroid brand name.....she needs brand name synthroid. Klor-Con 10 mEq tabl et,extended release RxNorm: 945282 1 Tablet(s) PO BID 07/15/2012 03/23/2013 In active Singulair 10 mg tablet RxNorm: 273979 1 Tablet(s) PO daily 06/12/2012 02/03/2013 Inactive Lexapro 10 mg tablet RxNorm: 913932 1/2 Tablet(s) PO daily 05/10/2012 06/03/2013 Inactive ProAir HFA 90 mcg/ac tuation Aerosol Inhaler RxNorm: 507034 2 INH Q6 PRN 04/23/2012 01/17/2016 In active Lexapro 10 mg tablet RxNorm: 956539 1/2 Tablet(s) PO daily 04/19/2012 05/09/2012 Inactive metoprolol succinate ER 50 mg tablet,extended release 24 hr RxNorm: 141487 1 Tablet(s) PO daily 04/09/2012 04/09/2012 Inactive Klor-Con 10 10 mEq t ablet,extended release RxNorm: 495421 1 Tablet(s) PO daily 04/01/2012 07/14/2012 In active metoprolol succinate ER 50 mg tablet,extended release 24 hr RxNorm: 761519 1/2 Tablet(s) PO BID 03/11/2012 04/08/2012 Inactive clonidine 0.1 mg Tab RxNorm: 231251 1 Tablet(s) PO BID 02/19/2012 03/12/2012 Inactive clonidine 0.1 mg Tab RxNorm: 832718 1 Tablet(s) PO BID 02/19/2012 02/18/2012 Inactive Micardis 80 mg Tab RxNorm: 211007 1 Tablet(s) PO daily 02/14/2012 02/13/2012 Inactive Micardis 80 mg tablet RxNorm: 832965 1 Tablet(s) PO daily 02/14/2012 10/27/2012 Inactive Synthroid 50 mcg tablet RxNorm: 496448 1 Tablet(s) PO daily 02/12/2012 07/14/2012 Inactive Tekturna 300 mg Tab RxNorm: 5968858 1 Tablet(s) PO daily 02/12/2012 03/12/2012 Inactive Lasix 40 mg Tab RxNorm: 743998 1 Tablet(s) PO daily 12/18/2011 12/17/2011 Inactive Lasix 40 mg tablet RxNorm: 030547 1 Tablet(s) PO daily 12/18/2011 07/14/2012 Inactive Anusol-HC 25 mg Supp ository RxNorm: 8575728 1 Suppository RTL QD AY PRN 12/04/2011 04/19/2012 In active lactobacillus acidop hilus Cap RxNorm: 1 Capsule(s) PO BID 11/21/2011 11/20/2011 Inactive lactobacillus acidop hilus Cap RxNorm: 1 Capsule(s) PO BID 11/21/2011 11/20/2011 Inactive Cipro 500 mg Tab RxNorm: 562604 1 Tablet(s) PO BID 11/21/2011 03/12/2012 Inactive lactobacillus acidop hilus Cap RxNorm: 1 Capsule(s) PO BID 11/21/2011 11/27/2011 Inactive lactobacillus acidop hilus Cap RxNorm: 1 Capsule(s) PO BID 11/21/2011 11/20/2011 Inactive Cipro 500 mg Tab RxNorm: 109341 1 Tablet(s) PO BID 11/21/2011 11/20/2011 Inactive Lexapro 10 mg Tab RxNorm: 670985 1 Tablet(s) PO daily 11/13/2011 11/12/2011 Inactive Lexapro 10 mg tablet RxNorm: 878737 1 Tablet(s) PO daily 11/13/2011 04/18/2012 Inactive amlodipine 10 mg Tab RxNorm: 491727 1 Tablet(s) PO daily 10/09/2011 12/03/2011 Inactive amlodipine 5 mg Tab RxNorm: 584144 1 Tablet(s) PO daily 09/20/2011 12/04/2011 Inactive Rocephin 500 mg Solu tion for Injection RxNorm: 7636224 Inj 11/201109/20/2011 Inactive metoprolol succinate ER 25 mg 24 hr Tab RxNorm: 725053 1 Tablet(s) PO QHS 08/30/2011 09/20/2011 In active Ambien 10 mg Tab RxNorm: 239950 1 Tablet(s) PO HS PRN 08/30/2011 04/19/2012 Inactive Augmentin 875 mg-125 mg Tab RxNorm: 894502 1 Tablet(s) PO BID 08/25/2011 09/20/2011 Inactive Augmentin 875 mg-125 mg Tab RxNorm: 503483 1 Tablet(s) PO BID 08/25/2011 08/24/2011 Inactive Rocephin 500 mg Solu tion for Injection RxNorm: 5619320 Inj 07/2808/23/2011 Inactive Levaquin 500 mg Tab RxNorm: 062389 1 Tablet(s) PO daily 08/23/2011 08/30/2011 Inactive chlordiazepoxide-cli dinium 5 mg-2.5 mg Cap RxNorm: 368157 1 Capsule(s) PO BID 07/10/2011 04/19/2012 In active q 12 hours prn metoprolol succinate ER 100 mg 24 hr Tab RxNorm: 007765 1 Tablet(s) PO daily 05/29/2011 03/12/2012 In active Synthroid 50 mcg Tab RxNorm: 083434 1 Tablet(s) PO daily 05/15/2011 08/12/2011 Inactive Ambien CR 12.5 mg Tab RxNorm: 013385 1 Tablet(s) PO HS PRN 05/09/2011 08/30/2011 Inactive Ambien 10 mg Tab RxNorm: 062488 1 Tablet(s) PO QHS 05/09/2011 06/07/2011 Inactive Nexium 40 mg Cap RxNorm: 968203 1 Capsule(s) PO daily 05/04/2011 03/12/2012 Inactive the patient had tried pepcid, otc priolosec, RX omperazole, failed them all Bactrim DS 800 mg-16 0 mg Tab RxNorm: 526796 1 Tablet(s) PO BID 04/19/2011 08/30/2011 Inactive triamcinolone aceton margie 40 mg/mL Susp for Injection RxNorm: 0738994 1 Milliliter(s) Inj UD 04/19/2011 04/19/2011 Inactive aspirin 81 mg Tab, D elayed Release RxNorm: 397755 1 Tablet(s) PO daily No Start Date Active 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 Device RxNorm: 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, 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 No Start Date Active Cymbalta 30 mg Cap RxNorm: 787925 1 Capsule(s) PO daily No Start Date 03/12/2012 Inactive Nexium 40 mg Cap RxNorm: 324304 Capsule(s) PO No Start Date 05/03/2011 Inactive Benadryl 25 mg capsule RxNorm: 5660774 1 Capsule(s) PO QHS No Start Date 01/03/2017 Inactive Klor-Con 10 10 mEq t ablet,extended release RxNorm: 837043 1 Tablet(s) PO daily No Start Date 03/31/2012 Inactive Metamucil Oral RxNorm: Oral No Start Date 10/12/2014 Inactive amlodipine 10 mg Tab RxNorm: 818679 1 Tablet(s) PO daily No Start Date 10/08/2011 Inactive Norvasc 5 mg tablet RxNorm: 678891 1 Tablet(s) PO daily No Start Date 10/12/2014 Inactive Lasix 40 mg Tab RxNorm: 004326 1 Tablet(s) PO daily No Start Date 12/17/2011 Inactive diltiazem ER (XR/XT) 240 mg capsule,extended release,controlled RxNorm: 904879 1 Capsule(s) PO daily No Start Date 04/22/2012 Inactive Centrum Silver Ultra Women's oral RxNorm: oral No Start D ate 04/24/2018 Inactive Synthroid 50 mcg Tab RxNorm: 225420 1 Tablet(s) PO daily No Start Date 05/14/2011 Inactive Flagyl 500 mg tablet RxNorm: 318255 1 Tablet(s) PO No Start Date 09/03/2012 Inactive one after each loose bm limit 8 per day Boniva 150 mg Tab RxNorm: 146326 1 Tablet(s) PO UD No Start Date 08/30/2011 Inactive monthly Singulair 10 mg tablet RxNorm: 265647 1 Tablet(s) PO daily No Start Date 06/11/2012 Inactive folic acid Oral RxNorm: Oral No Start Date 03/12/2012 Inactive potassium chloride E R 10 mEq tablet,extended release RxNorm: 853369 1 Tablet(s) PO daily No Start Date 01/03/2017 Inactive Probiotic & Acidophi jerilyn oral RxNorm: oral No Start D ate 04/24/2018 Inactive Librium 10 mg Cap RxNorm: 296991 Capsule(s) PO UD No Start Date 03/12/2012 Inactive q 12 hours prn Crestor 10 mg tablet RxNorm: 873922 1 Tablet(s) PO daily No Start Date 02/09/2013 Inactive multivitamin Cap RxNorm: 1 Capsule(s) PO daily No Start Date 01/17/2016 Inactive metoprolol succinate ER 100 mg 24 hr Tab RxNorm: 311127 1 Tablet(s) PO daily No Start Date 05/28/2011 Inactive Zithromax Z-Hebert 250 mg tablet RxNorm: 466282 Tablet(s) PO UD No Start Date 12/22/2015 Inactive diltiazem ER 180 mg capsule,extended release RxNorm: 139278 1 Capsule(s) PO daily No Start Date 10/13/2012 Inactive ProctoCream-HC 2.5 % rectal cream with applicator RxNorm: 690117 APPLY TO AFFECTED AREAS DIRECTED RTL No Start Date 09/30/2018 Inactive Tekturna 300 mg Tab RxNorm: 5145073 1 Tablet(s) PO daily samples No Start Date 02/11/2012 Inactive Xanax 0.25 mg tablet RxNorm: 107760 1-2 Tablet(s) PO QHS as needed insomnia No Start Date 07/24/2017 Inactive Fish Oil 1,000 mg Cap RxNorm: 1 Capsule(s) PO daily No Start Date 04/24/2018 Inactive ProAir HFA 90 mcg/ac tuation Aerosol Inhaler RxNorm: 7272336 2 INH Q6 PRN No Start Date 04/22/2012 Inactive chlordiazepoxide-cli dinium 5 mg-2.5 mg Cap RxNorm: 651030 1 Capsule(s) PO PRN No Start Date 07/09/2011 Inactive q 12 hours prn Butrans 5 mcg/hour T ransderm Patch RxNorm: 003799 1 Patch TD weekly No Start Date 05/26/2012 Inactive Lactobacillus acidop hilus tablet RxNorm: 4 Tablet(s) PO daily No Start Date 01/03/2017 Inactive Librax (with clidini um) 5 mg-2.5 mg capsule RxNorm: 078431 1 Capsule(s) PO BID No Start Date 04/18/2012 Inactive Nexium 40 mg capsule ,delayed release RxNorm: 387124 Capsule(s) PO PRN No Start Date 10/12/2014 Inactive Tylenol Extra Streng th 500 mg tablet RxNorm: 596833 1 Tablet(s) PO BID as needed for pain No Start Date 04/24/2018 Inactive Premarin 0.625 mg/gr am Vaginal Cream RxNorm: 835356 Gram(s) VAG No Start Date 03/12/2012 Inactive three times a week, small amt to vaginal tissuesample given metoprolol succinate ER 50 mg tablet,extended release 24 hr RxNorm: 447409 1 Tablet(s) PO daily No Start Date 03/10/2012 Inactive Zithromax Z-Hebert 250 mg tablet RxNorm: 085127 Tablet(s) PO UD No Start Date 08/13/2014 Inactive albuterol sulfate HF A 90 mcg/actuation aerosol inhaler RxNorm: 3074647 1 or2 Puff(s) INH Q4 PRN No Start Date 05/10/2014 Inactive Xanax 0.25 mg Tab RxNorm: 044469 1/2-1 Tablet(s) PO Q8 PRN No Start Date 03/12/2012 Inactive metoprolol succinate ER 25 mg tablet,extended release 24 hr RxNorm: 291246 1 Tablet(s) PO daily No Start Date 04/20/2013 Inactive Zithromax Z-Hebert 250 mg tablet RxNorm: 178922 1 Tablet(s) PO UD No Start Date 08/10/2016 Inactive Z PACK DIRECTED calcium carbonate 60 0 mg (1,500 mg) Tab RxNorm: 007348 1 Tablet(s) PO BID No Start Date 01/03/2017 Inactive albuterol sulfate HF A 90 mcg/Actuation Aerosol Inhaler RxNorm: 3565179 1-2 Puff(s) INH Q4 PRN No Start Date 03/11/2012 Inactive Vitamin D3 2,000 uni t capsule RxNorm: 851178 1 Capsule(s) PO daily No Start Date 10/12/2014 Inactive Colace 100 mg Cap RxNorm: 6829031 1 Capsule(s) PO BID No Start Date 01/17/2016 Inactive Neurontin 600 mg tablet RxNorm: 003148 1 Tablet(s) PO Q8 PRN No Start Date 06/09/2013 Inactive Lomotil 2.5 mg-0.025 mg tablet RxNorm: 8268710 1 Tablet(s) PO No Start Date 06/14/2014 Inactive one after each loose bm limit 8 per day Micardis 80 mg Tab RxNorm: 229756 1 Tablet(s) PO daily No Start Date 12/03/2011 Inactive Pyridium 200 mg tablet RxNorm: 2054961 1 Tablet(s) PO Q8 PRN No Start Date 09/10/2012 Inactive Medication Administered Medication Codes Instruc tions Start Date Status Kenalog 40 mg/mL suspension for injection RxNorm: 1597086 1Milliliter 08/09/2017 N o longer Active ceftriaxone 500 mg solution for injection RxNorm: 8333664 08/09/2017 No longer A ctive Kenalog 40 mg/mL suspension for injection RxNorm: 1338134 1Milliliter 01/04/2017 N o longer Active Kenalog 40 mg/mL suspension for injection RxNorm: 1280377 Milliliter 08/23/2016 No longer Active Rocephin 500 mg solution for injection RxNorm: 992376 1Milliliter 05/07/2014 N o longer Active Kenalog 40 mg/mL suspension for injection RxNorm: 4681276 Milliliter 12/26/2013 No longer Active Rocephin 500 mg solution for injection RxNorm: 231362 12/26/2013 No longer A ctive Kenalog 40 mg/mL suspension for injection RxNorm: 4430320 Milliliter 11/12/2013 No longer Active Rocephin 500 mg solution for injection RxNorm: 895480 1Milliliter 10/09/2013 N o longer Active Kenalog 40 mg/mL Susp for Injection RxNorm: 1106481 1Milliliter 11/21/2012 N o longer Active Rocephin 500 mg Solution for Injection RxNorm: 6851757 08/23/2011 No longer A ctive triamcinolone acetonide 40 mg/mL Susp for Injection RxNorm: 8599057 1MilliliterUD 04/19/2011 No longer Active Immunizations Vaccine [...] 11/12/2013 Laboratory exam ordered as part of [facility] examination ICD-9: V72.62 11/12/2013 Acute [...] Item Item Code Result Date Comp Metabolic Dke407 NA 139 mEq/L 05/29/2018 Comp Metabolic Wzs844 K 4.1 mEq/L 05/29/2018 Comp Metabolic Cug185 CL 99 mEq/L 05/29/2018 Comp Metabolic Dmu261 CO2 30.0 mEq/L 05/29/2018 Comp Metabolic Xcg703 AN ION GAP 14 05/29/2018 Comp Metabolic Zbd538 GL UCOSE 107 mg/dL 05/29/2018 Comp Metabolic Jbl293 Cr eat 0.6 mg/dL 05/29/2018 Comp Metabolic Rdw211 eG FR 95 ml/min/1.73m2 05/29 Comp Metabolic Bvd593 BUN 15 mg/dL 05/29/2018 Comp Metabolic Pim577 B/ C Ratio 23.4 Ratio 05/29/2018 Comp Metabolic Yiv081 CA LCIUM 9.4 mg/dL 05/29/2018 Comp Metabolic Igl437 AL K PHOS 52 U/L 05/29/2018 Comp Metabolic Nyz753 T(SGOT) 16 U/L 05/29/2018 Comp Metabolic Xmd871 AL T(SGPT) 12 U/L 05/29/2018 Comp Metabolic Dzo539 BI LI T 1.1 mg/dL 05/29/2018 Comp Metabolic Fen308 AL BUMIN 4.0 g/dL 05/29/2018 Comp Metabolic Utw544 TP RO 6.5 g/dL 05/29/2018 Comp Metabolic Ryj062 GL OB 2.5 g/dL 05/29/2018 Comp Metabolic Fwk697 A/ G Ratio 1.6 Ratio 05/29/2018 Comp Metabolic God057 Os mo 279 mOsmo 05/29/2018 Cbc With [...] 28.9 pg 05/29/2018 Cbc With Differential Ord2 [place]% 9.0 % 05/29/2018 Cbc With Differential Ord2 [...] 2.05 K/ul 05/29/2018 Cbc With Differential Ord2 [place] ABS# 0.7 K/ul 05/29/2018 Cbc With Differential Ord2 Eos ABS# 0.2 K/ul 05/29/2018 Cbc With Differential Ord2 Baso ABS# 0.0 K/ul 05/29/2018 Tsh Ord6 TSH (3rd IS) 2.05 uIU/mL 05/29/2018 Lipid Ord30 CHOL 191 mg/dL 05/29/2018 Lipid Ord30 HDL 68.0 mg/dl 05/29/2018 Lipid Ord30 TRIG 138 mg/dL 05/29/2018 Lipid Ord30 LDL 95 mg/dL 05/29/2018 Lipid Ord30 C/HDL 2.8 Ratio 05/29/2018 Free T4 Ksu210 FREE T4 0.93 ng/dL 05/29/2018 Free T4 Iwp895 FREE T4 0.90 ng/dL 09/12/2017 Cbc With [...] 29.3 pg 09/12/2017 Cbc With Differential Ord2 [place]% 8.7 % 09/12/2017 Cbc With Differential Ord2 [...] 2.72 K/ul 09/12/2017 Cbc With Differential Ord2 [place] ABS# 1.2 K/ul 09/12/2017 Cbc With Differential Ord2 Eos ABS# 0.3 K/ul 09/12/2017 Cbc With Differential Ord2 Baso ABS# 0.1 K/ul 09/12/2017 Comp Metabolic Jev889 NA 140 mEq/L 09/12/2017 Comp Metabolic Uxs685 K 4.3 mEq/L 09/12/2017 Comp Metabolic Lqp067 CL 99 mEq/L 09/12/2017 Comp Metabolic Lyx197 CO2 33.0 mEq/L 09/12/2017 Comp Metabolic Crj660 AN ION GAP 12 09/12/2017 Comp Metabolic Mqb155 GL UCOSE 92 mg/dL 09/12/2017 Comp Metabolic Frb347 Cr eat 0.7 mg/dL 09/12/2017 Comp Metabolic Moi185 eG FR 84 ml/min/1.73m2 09/12 Comp Metabolic Yaa813 BUN 18 mg/dL 09/12/2017 Comp Metabolic Qod248 B/ C Ratio 25.4 Ratio 09/12/2017 Comp Metabolic Yow523 CA LCIUM 9.3 mg/dL 09/12/2017 Comp Metabolic Qoa938 AL K PHOS 64 U/L 09/12/2017 Comp Metabolic Qos187 T(SGOT) 13 U/L 09/12/2017 Comp Metabolic Oei222 AL T(SGPT) 12 U/L 09/12/2017 Comp Metabolic Tcl592 BI LI T 0.7 mg/dL 09/12/2017 Comp Metabolic Emf411 AL BUMIN 4.0 g/dL 09/12/2017 Comp Metabolic Dzb439 TP RO 6.3 g/dL 09/12/2017 Comp Metabolic Xqb522 GL OB 2.3 g/dL 09/12/2017 Comp Metabolic Kjt329 A/ G Ratio 1.8 Ratio 09/12/2017 Comp Metabolic Fop304 Os mo 281 mOsmo 09/12/2017 Lipid Ord30 [...] 28.8 pg 03/09/2016 Cbc With Differential Ord2 [place]% 8.5 % 03/09/2016 Cbc With Differential Ord2 [...] 2.38 K/ul 03/09/2016 Cbc With Differential Ord2 [place] ABS# 0.8 K/ul 03/09/2016 Cbc With Differential Ord2 Eos ABS# 0.2 K/ul 03/09/2016 Cbc With Differential Ord2 Baso ABS# 0.1 K/ul 03/09/2016 Comp Metabolic Rlf865 NA 138 mEq/L 03/09/2016 Comp Metabolic Ulw325 K 4.5 mEq/L 03/09/2016 Comp Metabolic Bst037 CL 100 mEq/L 03/09/2016 Comp Metabolic Mvy509 CO2 33.0 mEq/L 03/09/2016 Comp Metabolic Hsy099 AN ION GAP 10 03/09/2016 Comp Metabolic Vli571 GL UCOSE 94 mg/dL 03/09/2016 Comp Metabolic Tvb258 Cr eat 0.6 mg/dL 03/09/2016 Comp Metabolic Eiv506 eG FR 106 ml/min/1.73m2 02/24 Comp Metabolic Xqi954 BUN 10 mg/dL 03/09/2016 Comp Metabolic Usa514 B/ C Ratio 17.2 Ratio 03/09/2016 Comp Metabolic Hqj858 CA LCIUM 9.2 mg/dL 03/09/2016 Comp Metabolic Pmf349 AL K PHOS 64 U/L 03/09/2016 Comp Metabolic Iyr566 T(SGOT) 20 U/L 03/09/2016 Comp Metabolic Ivs863 AL T(SGPT) 11 U/L 03/09/2016 Comp Metabolic Bib540 BI LI T 0.9 mg/dL 03/09/2016 Comp Metabolic Arv753 AL BUMIN 4.0 g/dL 03/09/2016 Comp Metabolic Xag732 TP RO 6.1 g/dL 03/09/2016 Comp Metabolic Ijo407 GL OB 2.1 g/dL 03/09/2016 Comp Metabolic Bxc002 A/ G Ratio 1.9 Ratio 03/09/2016 Comp Metabolic Ilg663 Os mo 274 mOsmo 03/09/2016 Free T4 Btd343 FREE T4 0.90 ng/dL 03/09/2016 Lipid Ord30 [...] hTSH II 3.25 uIU/mL 09/07/2015 Free T4 Ova815 FREE T4 0.79 ng/dL 09/07/2015 Comp Metabolic Kaz951 NA 137 mEq/L 09/07/2015 Comp Metabolic Rcp733 K 4.0 mEq/L 09/07/2015 Comp Metabolic Iyg130 CL 98 mEq/L 09/07/2015 Comp Metabolic Roq891 CO2 30.0 mEq/L 09/07/2015 Comp Metabolic Ndz895 AN ION GAP 13 09/07/2015 Comp Metabolic Qwt822 GL UCOSE 101 mg/dL 09/07/2015 Comp Metabolic Zii769 Cr eat 0.6 mg/dL 09/07/2015 Comp Metabolic Ods467 eG FR 111 ml/min/1.73m2 08/27 Comp Metabolic Qxx594 BUN 16 mg/dL 09/07/2015 Comp Metabolic Pxc767 B/ C Ratio 28.6 Ratio 09/07/2015 Comp Metabolic Zqs853 CA LCIUM 9.4 mg/dL 09/07/2015 Comp Metabolic Fap211 AL K PHOS 68 U/L 09/07/2015 Comp Metabolic Sta995 T(SGOT) 16 U/L 09/07/2015 Comp Metabolic Wzs784 AL T(SGPT) 12 U/L 09/07/2015 Comp Metabolic Kfn499 BI LI T 0.9 mg/dL 09/07/2015 Comp Metabolic Slq214 AL BUMIN 4.1 g/dL 09/07/2015 Comp Metabolic Qhr954 TP RO 6.5 g/dL 09/07/2015 Comp Metabolic Tkq559 GL OB 2.4 g/dL 09/07/2015 Comp Metabolic Ovj095 A/ G Ratio 1.7 Ratio 09/07/2015 Comp Metabolic Ujn334 Os mo 275 mOsmo 09/07/2015 Cbc With [...] Differential Ord2 RDW 14.4 % 09/07/2015 TSH 8293911 TSH 0.920 uIU/ML 08/28/2014 CBC 6544472 WBC 12.5 10e9/L 08/28/2014 CBC 6310753 RBC 3.44 10e12/L 08/28/2014 CBC 1085019 HGB 10.3 g/dL 08/28/2014 CBC 8314463 HCT DET 33.9 % 08/28/2014 CBC 2824072 MCV 98.5 fL 08/28/2014 CBC 9618875 MCH 29.9 pg 08/28/2014 CBC 6173524 MCHC 30.4 g/dL 08/28/2014 CBC 3108958 PLT 412 10e9/L 08/28/2014 CBC 8467244 MPV 10.2 fL 08/28/2014 CBC 3670398 NNEKA % 68.5 % 08/28/2014 CBC 4603252 LY % 20.8 % 08/28/2014 CBC 2254006 MON % 9.9 % 08/28/2014 CBC 5139196 EOS % 0.6 % 08/28/2014 CBC 1399279 BASO % 0.2 % 08/28/2014 CBC 2304049 RDW 15.8 % 08/28/2014 CBC 4125547 ABS NNEKA 8.56 10e9/L 08/28/2014 CBC 4919592 ABS LYMPH 2.60 10e9/L 08/28/2014 CBC 5550075 ABS MONO 1.24 10e9/L 08/28/2014 CBC 9566665 ABS EOS 0.08 10e9/L 08/28/2014 CBC 1593247 ABS BASO 0.03 10e9/L 08/28/2014 CBC 4739143 RDW-SD 55.4 fL 08/28/2014 GFR CALC 6159905 GFR AA >60 ML/MIN 08/28/2014 GFR CALC 0524542 GFR NON -AA >60 ML/MIN 08/28/2014 LIPID GRP HDL TE ST 69 MG/DL 08/28/2014 LIPID GRP TRIG 158 MG/DL 08/28/2014 LIPID GRP TEST L DL 96 MG/DL 08/28/2014 LIPID GRP CHOL 197 MG/DL 08/28/2014 LIPID GRP RCHOL/ HDL 2.86 RATIO 08/28/2014 LIPID GRP NON-HD L CH 128 MG/DL 08/28/2014 CHEM 14 0764206 AST 14 U/L 08/28/2014 CHEM 14 5861779 ALT 13 IU/L 08/28/2014 CHEM 14 0502110 BUN 15 MG/DL 08/28/2014 CHEM 14 5250565 ALBUMIN 4.2 GM/DL 08/28/2014 CHEM 14 5348549 CHLORIDE 98 MMOL/L 08/28/2014 CHEM 14 5242258 BILI TOT 1.2 MG/DL 08/28/2014 CHEM 14 3972467 ALK PHOS 68 U/L 08/28/2014 CHEM 14 2442272 SODIUM 137 MMOL/L 08/28/2014 CHEM 14 8450047 CREATINI NE 0.68 MG/DL 08/28/2014 CHEM 14 6983701 CALCIUM 9.1 MG/DL 08/28/2014 CHEM 14 5656215 POTASSIUM 3.7 MMOL/L 08/28/2014 CHEM 14 4237443 PROT TOT 6.2 GM/DL 08/28/2014 CHEM 14 2459949 GLUCOSE 91 MG/DL 08/28/2014 CHEM 14 2721806 BICARB 31 MMOL/L 08/28/2014 CHEM 14 3351437 ANION GAP 8 MEQ/L 08/28/2014 FREE T4 9847826 FREE T4 1.44 NG/DL 08/28/2014 LIPID GRP HDL TE ST 73 MG/DL 04/16/2014 LIPID GRP TRIG 131 MG/DL 04/16/2014 LIPID GRP TEST L DL 99 MG/DL 04/16/2014 LIPID GRP CHOL 198 MG/DL 04/16/2014 LIPID GRP RCHOL/ HDL 2.71 RATIO 04/16/2014 LIPID GRP NON-HD L CH 125 MG/DL 04/16/2014 CHEM 14 0044369 AST 17 U/L 04/14/2014 CHEM 14 5441596 ALT 17 IU/L 04/14/2014 CHEM 14 2060923 BUN 15 MG/DL 04/14/2014 CHEM 14 9519162 ALBUMIN 4.3 GM/DL 04/14/2014 CHEM 14 8478154 CHLORIDE 96 MMOL/L 04/14/2014 CHEM 14 5955357 BILI TOT 0.9 MG/DL 04/14/2014 CHEM 14 1298449 ALK PHOS 65 U/L 04/14/2014 CHEM 14 1865332 SODIUM 135 MMOL/L 04/14/2014 CHEM 14 2959399 CREATINI NE 0.69 MG/DL 04/14/2014 CHEM 14 0373372 CALCIUM 9.5 MG/DL 04/14/2014 CHEM 14 2281919 POTASSIUM 4.1 MMOL/L 04/14/2014 CHEM 14 4040504 PROT TOT 6.6 GM/DL 04/14/2014 CHEM 14 4952339 GLUCOSE 104 MG/DL 04/14/2014 CHEM 14 5682511 BICARB 34 MMOL/L 04/14/2014 CHEM 14 9647385 ANION GAP 5 MEQ/L 04/14/2014 A1C HPLC 9183026 A1C HPLC 71005-7 5.0 % 04/14/2014 TSH 8888222 TSH 2.140 uIU/ML 04/14/2014 FREE T4 9938186 FREE T4 1.56 NG/DL 04/14/2014 GFR CALC 0785486 GFR AA >60 ML/MIN 04/14/2014 GFR CALC 2437419 GFR NON -AA >60 ML/MIN 04/14/2014 CBC 5545501 WBC 12.8 10e9/L 04/14/2014 CBC 8960952 RBC 4.44 10e12/L 04/14/2014 CBC 8336561 HGB 13.2 g/dL 04/14/2014 CBC 3827653 HCT DET 41.4 % 04/14/2014 CBC 5923357 MCV 93.2 fL 04/14/2014 CBC 2804271 MCH 29.7 pg 04/14/2014 CBC 9874930 MCHC 31.9 g/dL 04/14/2014 CBC 6492499 PLT 383 10e9/L 04/14/2014 CBC 8040285 MPV 10.1 fL 04/14/2014 CBC 6507683 NNEKA % 65.5 % 04/14/2014 CBC 8746144 LY % 23.0 % 04/14/2014 CBC 0031002 MON % 9.9 % 04/14/2014 CBC 5830866 EOS % 1.3 % 04/14/2014 CBC 3726911 BASO % 0.3 % 04/14/2014 CBC 2455750 RDW 13.7 % 04/14/2014 CBC 7650388 ABS NNEKA 8.38 10e9/L 04/14/2014 CBC 6490242 ABS LYMPH 2.94 10e9/L 04/14/2014 CBC 8413311 ABS MONO 1.27 10e9/L 04/14/2014 CBC 1328582 ABS EOS 0.17 10e9/L 04/14/2014 CBC 4457774 ABS BASO 0.04 10e9/L 04/14/2014 CBC 7938857 RDW-SD 45.9 fL 04/14/2014 A1C HPLC 0048629 A1C HPLC 00797-1 4.9 % 11/13/2013 CHEM 14 1278974 AST 15 U/L 11/12/2013 CHEM 14 2251358 ALT 14 IU/L 11/12/2013 CHEM 14 7775583 BUN 14 MG/DL 11/12/2013 CHEM 14 9110959 ALBUMIN 4.3 GM/DL 11/12/2013 CHEM 14 3184671 CHLORIDE 101 MMOL/L 11/12/2013 CHEM 14 5218536 BILI TOT 0.9 MG/DL 11/12/2013 CHEM 14 6445814 ALK PHOS 67 U/L 11/12/2013 CHEM 14 8869735 SODIUM 139 MMOL/L 11/12/2013 CHEM 14 7516649 CREATINI NE 0.67 MG/DL 11/12/2013 CHEM 14 6878297 CALCIUM 9.5 MG/DL 11/12/2013 CHEM 14 2565863 POTASSIUM 4.1 MMOL/L 11/12/2013 CHEM 14 3376662 PROT TOT 6.5 GM/DL 11/12/2013 CHEM 14 5483606 GLUCOSE 102 MG/DL 11/12/2013 CHEM 14 9927711 BICARB 30 MMOL/L 11/12/2013 CHEM 14 0534578 ANION GAP 8 MEQ/L 11/12/2013 GFR CALC 3263534 GFR AA >60 ML/MIN 11/12/2013 GFR CALC 9391643 GFR NON -AA >60 ML/MIN 11/12/2013 TSH 4690232 TSH 2.445 uIU/ML 11/12/2013 FREE T4 3488607 FREE T4 1.09 NG/DL 11/12/2013 CBC 3640849 WBC 7.6 10e9/L 11/12/2013 CBC 1920053 RBC 4.42 10e12/L 11/12/2013 CBC 2942346 HGB 13.1 g/dL 11/12/2013 CBC 6234949 HCT DET 41.2 % 11/12/2013 CBC 7273478 MCV 93.2 fL 11/12/2013 CBC 8068081 MCH 29.6 pg 11/12/2013 CBC 5574237 MCHC 31.8 g/dL 11/12/2013 CBC 9749633 PLT 314 10e9/L 11/12/2013 CBC 7502793 MPV 10.4 fL 11/12/2013 CBC 3972280 NNEKA % 59.8 % 11/12/2013 CBC 7786151 LY % 28.1 % 11/12/2013 CBC 5597024 MON % 9.5 % 11/12/2013 CBC 4763180 EOS % 1.8 % 11/12/2013 CBC 3092337 BASO % 0.8 % 11/12/2013 CBC 3754682 RDW 13.8 % 11/12/2013 CBC 8000788 ABS NNEKA 4.54 10e9/L 11/12/2013 CBC 9507183 ABS LYMPH 2.14 10e9/L 11/12/2013 CBC 4124486 ABS MONO 0.72 10e9/L 11/12/2013 CBC 6027840 ABS EOS 0.14 10e9/L 11/12/2013 CBC 1919645 ABS BASO 0.06 10e9/L 11/12/2013 CBC 7022220 RDW-SD 46.0 fL 11/12/2013 LIPID GRP HDL TE ST 66 MG/DL 11/12/2013 LIPID GRP TRIG 130 MG/DL 11/12/2013 LIPID GRP 1963082 TEST L DL 108 MG/DL 11/12/2013 LIPID GRP CHOL 200 MG/DL 11/12/2013 LIPID GRP RCHOL/ HDL 3.03 RATIO 11/12/2013 HS ENE ZOS 0454422 HS VA R ZOS IMMUNE 04/04/2013 A1C 3881334 A1C HPLC 48887-6 5.2 % 04/03/2013 GFR CALC 3620042 GFR AA >60 ML/MIN 03/31/2013 GFR CALC 4172049 GFR NON -AA >60 ML/MIN 03/31/2013 TSH 5954688 TSH 2.689 uIU/ML 03/31/2013 LIPID GRP HDL TE ST 63 MG/DL 03/31/2013 LIPID GRP TRIG 157 MG/DL 03/31/2013 LIPID GRP TEST L DL 98 MG/DL 03/31/2013 LIPID GRP CHOL 192 MG/DL 03/31/2013 LIPID GRP RCHOL/ HDL 3.05 RATIO 03/31/2013 FREE T4 1924890 FREE T4 1.19 NG/DL 03/31/2013 CHEM 14 7201458 AST 16 U/L 03/31/2013 CHEM 14 3837506 ALT 12 IU/L 03/31/2013 CHEM 14 2704007 BUN 17 MG/DL 03/31/2013 CHEM 14 8683218 ALBUMIN 4.5 GM/DL 03/31/2013 CHEM 14 8353683 CHLORIDE 98 MMOL/L 03/31/2013 CHEM 14 3316460 BILI TOT 0.7 MG/DL 03/31/2013 CHEM 14 8712993 ALK PHOS 53 U/L 03/31/2013 CHEM 14 2708174 SODIUM 137 MMOL/L 03/31/2013 CHEM 14 3477042 CREATINI NE 0.66 MG/DL 03/31/2013 CHEM 14 4210789 CALCIUM 9.6 MG/DL 03/31/2013 CHEM 14 0529694 POTASSIUM 4.2 MMOL/L 03/31/2013 CHEM 14 3261845 PROT TOT 6.7 GM/DL 03/31/2013 CHEM 14 3752932 GLUCOSE 101 MG/DL 03/31/2013 CHEM 14 5947379 BICARB 33 MMOL/L 03/31/2013 CHEM 14 0050165 ANION GAP 6 MEQ/L 03/31/2013 CBC 0987347 WBC 7.5 10e9/L 03/31/2013 CBC 8168658 RBC 4.39 10e12/L 03/31/2013 CBC 4452479 HGB 13.0 g/dL 03/31/2013 CBC 1454290 HCT DET 40.2 % 03/31/2013 CBC 0007915 MCV 91.6 fL 03/31/2013 CBC 9298389 MCH 29.6 pg 03/31/2013 CBC 6031286 MCHC 32.3 g/dL 03/31/2013 CBC 0535875 PLT 305 10e9/L 03/31/2013 CBC 1496143 MPV 10.4 fL 03/31/2013 CBC 7798199 NNEKA % 56.8 % 03/31/2013 CBC 1120869 LY % 30.3 % 03/31/2013 CBC 3900274 MON % 9.8 % 03/31/2013 CBC 2844826 EOS % 2.3 % 03/31/2013 CBC 3593162 BASO % 0.8 % 03/31/2013 CBC 0918971 RDW 13.2 % 03/31/2013 CBC 3480724 ABS NNEKA 4.26 10e9/L 03/31/2013 CBC 4477223 ABS LYMPH 2.27 10e9/L 03/31/2013 CBC 1226667 ABS MONO 0.74 10e9/L 03/31/2013 CBC 7254449 ABS EOS 0.17 10e9/L 03/31/2013 CBC 8713662 ABS BASO 0.06 10e9/L 03/31/2013 CBC 8460673 RDW-SD 43.2 fL 03/31/2013 LIPID GRP HDL TE ST 49 MG/DL 09/11/2012 LIPID GRP TRIG 134 MG/DL 09/11/2012 LIPID GRP TEST L DL 81 MG/DL 09/11/2012 LIPID GRP CHOL 157 MG/DL 09/11/2012 LIPID GRP RCHOL/ HDL 3.20 RATIO 09/11/2012 TSH 0400915 TSH 2.118 uIU/ML 09/11/2012 CBC 1727378 WBC 7.5 10e9/L 09/11/2012 CBC 3581993 RBC 3.99 10e12/L 09/11/2012 CBC 4151756 HGB 11.7 g/dL 09/11/2012 CBC 0449129 HCT DET 37.7 % 09/11/2012 CBC 5459374 MCV 94.5 fL 09/11/2012 CBC 4226949 MCH 29.3 pg 09/11/2012 CBC 0141187 MCHC 31.0 g/dL 09/11/2012 CBC 1640638 PLT 384 10e9/L 09/11/2012 CBC 7801754 MPV 11.0 fL 09/11/2012 CBC 2640772 NNEKA % 51.7 % 09/11/2012 CBC [id number] LY % 35.2 % 09/11/2012 CBC 5678880 MON % 10.4 % 09/11/2012 CBC 9929448 EOS % 2.3 % 09/11/2012 CBC 8838982 BASO % 0.4 % 09/11/2012 CBC 2528533 RDW 14.2 % 09/11/2012 CBC [id number] ABS NNEKA 3.88 10e9/L 09/11/2012 CBC 8725322 ABS LYMPH 2.64 10e9/L 09/11/2012 CBC 3300891 ABS MONO 0.78 10e9/L 09/11/2012 CBC 4819312 ABS EOS 0.17 10e9/L 09/11/2012 CBC 1144995 ABS BASO 0.03 10e9/L 09/11/2012 CBC 4843935 RDW-SD 47.1 fL 09/11/2012 CHEM 14 6971070 AST 16 U/L 09/11/2012 CHEM 14 4785766 ALT 15 IU/L 09/11/2012 CHEM 14 0257743 BUN 11 MG/DL 09/11/2012 CHEM 14 6210643 ALBUMIN 4.2 GM/DL 09/11/2012 CHEM 14 2107429 CHLORIDE 101 MMOL/L 09/11/2012 CHEM 14 9278271 BILI TOT 0.8 MG/DL 09/11/2012 CHEM 14 0425495 ALK PHOS 57 U/L 09/11/2012 CHEM 14 6229453 SODIUM 141 MMOL/L 09/11/2012 CHEM 14 5730200 CREATINI NE 0.62 MG/DL 09/11/2012 CHEM 14 7646523 CALCIUM 9.5 MG/DL 09/11/2012 CHEM 14 1323231 POTASSIUM 4.7 MMOL/L 09/11/2012 CHEM 14 2348048 PROT TOT 6.6 GM/DL 09/11/2012 CHEM 14 4270578 GLUCOSE 90 MG/DL 09/11/2012 CHEM 14 7574764 BICARB 32 MMOL/L 09/11/2012 CHEM 14 3270567 ANION GAP 8 MEQ/L 09/11/2012 A1C HPLC 9860859 A1C HPLC 58804-1 4.5 % 09/11/2012 GFR CALC 1946978 GFR AA >60 ML/MIN 09/11/2012 GFR CALC 9575856 GFR NON -AA >60 ML/MIN 09/11/2012 FREE T4 7713351 FREE T4 1.30 NG/DL 09/11/2012 [facility] GLUCOSE 93 MG/DL 04/16/2012 BMP CREATININE 0.64 MG/DL 04/16/2012 BMP BUN 12 MG/DL 04/16/2012 BMP SODIUM 139 MMOL/L 04/16/2012 BMP POTASSIUM 4.1 MMOL/L 04/16/2012 BMP CHLORIDE 99 MMOL/L 04/16/2012 BMP BICARB 32 MMOL/L 04/16/2012 BMP ANION GAP 8 MEQ/L 04/16/2012 BMP CALCIUM 9.8 MG/DL 04/16/2012 CBC 4646814 WBC 8.5 10e9/L 04/16/2012 CBC 3798627 RBC 3.98 10e12/L 04/16/2012 CBC 2680176 HGB 11.5 g/dL 04/16/2012 CBC 8660858 HCT DET 36.7 % 04/16/2012 CBC 4730378 MCV 92.2 fL 04/16/2012 CBC 9825174 MCH 28.9 pg 04/16/2012 CBC 5462012 MCHC 31.3 g/dL 04/16/2012 CBC 3533973 PLT 321 10e9/L 04/16/2012 CBC 3874355 MPV 10.2 fL 04/16/2012 CBC 5698352 NNEKA % 64.3 % 04/16/2012 CBC 8806041 LY % 24.3 % 04/16/2012 CBC 4285783 MON % 9.0 % 04/16/2012 CBC 8810948 EOS % 1.9 % 04/16/2012 CBC 7272694 BASO % 0.5 % 04/16/2012 CBC 9699780 RDW 13.7 % 04/16/2012 CBC 3581658 ABS NNEKA 5.47 10e9/L 04/16/2012 CBC 9100665 ABS LYMPH 2.07 10e9/L 04/16/2012 CBC 4982021 ABS MONO 0.77 10e9/L 04/16/2012 CBC 6620692 ABS EOS 0.16 10e9/L 04/16/2012 CBC 1371477 ABS BASO 0.04 10e9/L 04/16/2012 CBC 2251568 RDW-SD 44.6 fL 04/16/2012 GFR CALC 4571168 GFR AA >60 ML/MIN 04/16/2012 GFR CALC 3572566 GFR NON -AA >60 ML/MIN 04/16/2012 URINALYSIS NONAUTO W/O SCOPE 66014 Specific Orla 1.015 DateTime(Free Text in Aprima) URINALYSIS NONAUTO W/O SCOPE 25897 PH 6.0 DateTime(Free Jmi t in Aprima) URINALYSIS NONAUTO W/O SCOPE 04422 GLUCOSE neg DateTime(Free Jim t in Aprima) URINALYSIS NONAUTO W/O SCOPE 60159 Protein neg DateTime(Free Jim t in Apr) URINALYSIS NONAUTO W/O SCOPE 80255 Blood 1+ DateTime(Free Text in Apr[employer]) URINALYSIS NONAUTO W/O SCOPE 85858 Bilirubin neg DateTime(Free Jim t in Aprima) URINALYSIS NONAUTO W/O SCOPE 54476 Ketones neg DateTime(Free Jim t in Aprima) URINALYSIS NONAUTO W/O SCOPE 85497 Urobilinogen neg DateTime(Free Text in Aprima) URINALYSIS NONAUTO W/O SCOPE 00995 Nitrite positive DateTime(Madi e Text in ) URINALYSIS NONAUTO W/O SCOPE 19392 Leukocytes 1+ DateTime(Free Text in Novima) UA 30847 Specific Orla 1.015 DateTime(Free Text in Novima ) UA 71957 PH 5 DateTime(Free Text in Aprima ) UA 11355 GLUCOSE neg DateTime(Free Text in Aprima ) UA 95780 Protein neg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 LEG[ICD9: 682.6] Concepción Flanagan MD, [facility] CPT-4: 92831 08/05/2012 ([id number]) 39934 EST. P ATIENT, LEVEL IV Diagnosis: ESSENTIAL HYPERTENSION[SNOMED: 79274419] Diagnosis: EDEMA[ICD9: 782.3] Diagnosis: Constipation[ICD9: 564.00] Concepción Flanagan MD, [facility] CPT-4: 05692 07/15/2012 ([id number]) 06360 EST. P ATIENT, LEVEL III Diagnosis: Subungual contusion of toenail[ICD9: 924.3] Concepción Flanagan MD, C CPT-4: 39016 05/27/2012 Postop follow up vis it related to original px Diagnosis: BENIGN ERLINDA SKIN ARM[ICD9: 216.6] Diagnosis: BENIGN ERLINDA SKIN TRUNK[ICD9: 216.5] Concepción Flanagan MD, [facility] CPT- 4: 02460 05/03/2012 ([id number]) 10580 EST. P ATIENT, LEVEL IV Diagnosis: ESSENTIAL HYPERTENSION[SNOMED: 17220912] Diagnosis: OA (osteoarthritis) of knee[ICD9: 715.96] Diagnosis: EDEMA[ICD9: 782.3] Concepción Flanagan MD, [facility] CPT-4: 37717 03/25/2012 59910 EST. PATIENT, LEVEL IV Diagnosis: ESSENTIAL HYPERTENSION[SNOMED: 38626111] Diagnosis: Abdominal bloating[ICD9: 787.3] Concepción Flanagan MD, [facility] CPT-4: 57626 03/12/2012 ([id number]) 18173 EST. P ATIENT, LEVEL IV Diagnosis: ESSENTIAL HYPERTENSION[SNOMED: 77866054] Diagnosis: EDEMA[ICD9: 782.3] Concepción Flanagan MD, [facility] CPT-4: 23611 01/23/2012 ([id number]) 62747 EST. P ATIENT, LEVEL III Diagnosis: Breast pain, left[ICD9: 611.71] Chaparrita Flanagan MD, [facility] CPT- 4: 41753 01/12/2012 ([id number]) 66022 EST. P ATIENT, LEVEL IV Diagnosis: ESSENTIAL HYPERTENSION[SNOMED: 08445347] Diagnosis: DEPRESSIVE DISORDER NEC[ICD9: 311] Diagnosis: ANXIETY STATE[ICD9: 300.00] Concepción Flanagan MD, [facility] CPT-4: 77692 12/25/2011 ([id number]) 82371 EST. P ATIENT, LEVEL IV Diagnosis: ESSENTIAL HYPERTENSION[SNOMED: 13840537] Diagnosis: EDEMA[ICD9: 782.3] Concepción Flanagan MD, [facility] CPT-4: 24346 12/04/2011 ([id number]) 85494 EST. P ATIENT, LEVEL IV Diagnosis: ESSENTIAL HYPERTENSION[SNOMED: 82333286] Diagnosis: DEPRESSIVE DISORDER NEC[ICD9: 311] Concepción Flanagan MD, [facility] CPT- 4: 71542 09/20/2011 70428 EST. PATIENT, LEVEL IV Diagnosis: Dysuria[ICD9: 788.1] Diagnosis: ESSENTIAL HYPERTENSION[SNOMED: 85836394] Diagnosis: Anxiety[ICD9: 300.00] Concepción Flanagan MD, [facility] CPT-4: 27468 09/06/2011 ([id number]) 06412 EST. P ATIENT, LEVEL IV Diagnosis: LUMBAGO[ICD9: 724.2] Diagnosis: ESSENTIAL HYPERTENSION[SNOMED: 18966985] Concepción Flanagan MD, [facility] CPT-4: 39542 08/30/2011 69730 EST. PATIENT, LEVEL III Diagnosis: ACUTE SINUSITIS[ICD9: 461.9] Diagnosis: Urinary frequency[ICD9: 788.41] Chaparrita Flanagan MD, [facility] CPT- 4: 34919 08/23/2011 81984 EST. PATIENT, LEVEL III Diagnosis: Lesion of labia[ICD9: 624.8] Chaparrita Flanagan MD, [facility] CPT- 4: 74649 08/09/2011 33222 EST. PATIENT, LEVEL IV Diagnosis: HYPOTHYROIDISM[ICD9: 244.9] Diagnosis: HYPERLIPIDEMIA[ICD9: 272.4] Diagnosis: BP (high blood pressure)[SNOMED: 97405226] Diagnosis: Knee pain, bilateral[ICD9: 719.46] Diagnosis: ESOPHAGEAL REFLUX[ICD9: 530.81] Concepción Flanagan MD, [facility] CPT-4: 76971 05/04/2011 09382 EST. PATIENT, LEVEL III Diagnosis: ACUTE URI[ICD9: 465.9] Diagnosis: Asthma[ICD9: 493.90] Diagnosis: Esophageal reflux[ICD9: 530.81] Chaparrita Flanagan MD, [facility] CPT- 4: 00241 04/19/2011 Plan of Care Planned Activity Notes [...] shot in bilateral SI joints today 03/11/2019 Patient Education: Patient Medication Summary Completed [...] this time. 09/03/2018 Appointment: Concepción Flanagan WPtel: [address] [place], [place] [phone] (15 min) Moderate 09/03/2018 Patient Education: Patient [...] and back. 05/29/2018 Appointment: Concepción Flanagan WPtel: [facility] (15 min) Moderate 05/29/2018 Patient Education: Patient Medication Summary Completed 05/29/2018 Care Plan: Referral Order SNOMED-CT : 292121772 Pending 05/29/2018 Visit Plan: Wound Instructions - [...] hearing. The wax was removed by the [facility] ctitioner due to the wax being more complicated to remove, and staff was needed to assist the removal of the wax by holding the ear, and keeping patient stabilized during the removal process. 02/06/2018 Appointment: Hayley London WPtel: [phone] [facility] (15 min) Moderate 02/06/2018 Patient Education: Patient [...] to medications. 01/23/2018 Appointment: Concepción Flanagan WPtel: [phone] [facility] (15 min) Moderate 01/23/2018 Patient Education: Patient Medication Summary Completed 01/23/2018 Visit Plan: Cough - improved - sinu sitis resolved. 09/26/2017 Appointment: Concepción Flanagan WPtel: [phone] [facility] (15 min) Moderate 09/26/2017 Patient Education: Patient Medication Summary Completed 09/26/2017 Visit Plan: Acute Maxillary Sinusit is - if not improving - pt would like to see an ENT - Hortensia Tompkins in [place]. Treatment as follows: cefdinir - antibiotic twice [...] refilled hydrocodone. 09/12/2017 Appointment: Concepción Flanagan WPtel: [facility] (15 min) Moderate 09/12/2017 Patient Education: Patient [...] allergy spray. 08/31/2017 Appointment: Hayley London WPtel[facility] (30 min) Complex 08/31/2017 Patient Education: Patient Medication Summary Completed 08/31/2017 Visit Plan: URI - Pt advised to inc rease fluids, vitamin C. Discussed natural and expected course of this diagnosis and need to alert me if symptoms do not follow expected course, or if any worse. RX sent to patient's pharmacy. 08/09/2017 Appointment: Chaparrita Arrieta WPtel: [phone] [phone] (30 min) Complex 08/09/2017 Patient Education: Patient [...] hydrocodone. 05/07/2017 Appointment: Concepción Flanagan WPtel: [phone] [facility] [place] (15 min) Moderate 05/07/2017 Patient Education: [...] care surrogate. 04/12/2017 Appointment: Hayley London WPtel: [address] [place], [place] [address] [facility] - Annual Wellness Visit 04/12/2017 Patient Education: Patient Medication Summary Completed 04/12/2017 Appointment: Nurse Visit 02/15/2017 Patient Education: Patient Medication Summary Completed 02/15/2017 Visit Plan: Xigic-xpsxkhagxr-llwqo zpack when finished with cipro-follow up chest [...] day-follow up Sunday02/02/2017 Appointment: Chaparrita Arrieta WPtel: 101 [phone] (15 min) Moderate 02/02/2017 Patient Education: Patient Medication Summary Completed 02/02/2017 Patient Education: Obesity Completed 02/02/2017 Visit Plan: Sinusitis - Pt has acut e infection - pain in face, maxillary region, Pt informed to use decongestant, RX given to patient, sinus rinses also recommended. Call if symptoms do not show improvement. 01/15/2017 Appointment: Chaparrita Arrieta WPtel: [phone] (10 min) Simple 01/15/2017 Patient [...] today 01/04/2017 Appointment: Concepción Flanagan WPtel: [phone] [facility] [place] (15 min) Moderate 01/04/2017 Patient Education: [...] medication (lexapro). 09/07/2016 Appointment: Concepción Flanagan WPtel: [phone] [facility] (30 min) Complex 09/07/2016 Patient Education: Patient [...] at home. 07/06/2016 Appointment: Concepción Flanagan WPtel: [phone] [facility] (15 min) Moderate 07/06/2016 Patient Education: Patient [...] TWICE DAILY 06/08/2016 Appointment: Concepción Flanagan WPtel: [phone] [facility] [place] (15 min) Moderate 06/08/2016 Patient Education: [...] edema. 04/06/2016 Appointment: Concepción Flanagan WPtel: [phone] [facility] (15 min) Moderate 04/06/2016 Patient Education: Patient [...] for Mikala. 01/18/2016 Appointment: Concepción Flanagan WPtel: [address] [place], [place] [address] (15 min) Moderate 01/18/2016 Patient Education: Patient [...] 09/09/2015 Visit Plan: Hypertension - well con fabriziolled [...] discuss with her son who is a Telesales Specialist - and consider re-evaluation for nasal pillows with her cpap since she could not tolerate a face mask cpap in the past. 12/25/2014 Appointment: Concepción Flanagan WPtel: [phone] [facility] Follow up 12/25/2014 Patient Education: Patient Medication Summary Completed 12/25/2014 Patient Education: Hypertension Completed 12/25/2014 Visit Plan: Hypertension - well con fabriziolled - continue with current medications, continue with no added salt diet. Pt has been encouraged to exercise daily. The pt has been advised to call the office if there are any acute concerns about change in blood pressure readings at home. 10/13/2014 Appointment: Concepción Flanagan WPtel: [phone] [facility] Follow up 10/13/2014 Patient Education: Patient [...] . 08/28/2014 Appointment: Concepción Flanagan WPtel: [phone] [facility] Follow up 08/28/2014 Patient Education: Patient Medication [...] creatinine. 04/16/2014 Appointment: Concepción Flanagan WPtel: [phone] [facility] Follow up 04/16/2014 Patient Education: Patient Medication Summary Completed 04/16/2014 Patient Education: Patient Medication Summary Completed 04/14/2014 Patient Education: Hypertension Completed 04/14/2014 Visit Plan: Wound Instructions - Pt was instruced to keep the wound clean, wash with antibacterial soap, use triple antibiotic ointment, call if redness, pustular drainage, or any other acute conerns. 01/27/2014 Appointment: Concepción Flanagan WPtel: [phone] [facility] Surgical Procedure 01/27/2014 Patient Education: Patient Medication [...] home eval. 01/21/2014 Appointment: Concepción Flanagan WPtel: [facility] Follow up 01/21/2014 Patient Education: Patient Medication Summary Completed 01/21/2014 Patient Education: Hypertension Completed 01/21/2014 Visit Plan: Hypotension - Bradycard ia - pt to stop her metroprolol - check bp and heart rate twice daily and monitor symptoms. Call if bp uncontrolled- or heart rate to elevated. 01/07/2014 Appointment: Concepción Flanagan WPtel: [address] [place], [place] [phone] Follow up 01/07/2014 Patient Education: Hypertension Completed [...] swallow 11/12/2013 Appointment: Chaparrita Arrieta WPtel: [phone] Sick 11/12/2013 Patient Education: Patient Medication Summary Completed 11/12/2013 Patient Education: Hypertension Completed 11/12/2013 Visit Plan: Sinusitis - Pt has acut e infection - pain in face, maxillary region, Pt informed to use decongestant, RX given to patient, sinus rinses also recommended. Call if symptoms do not show improvement. 10/09/2013 Appointment: Chaparrita Arrieta WPtel: [address] [place], [place] [phone] [facility] 10/09/2013 Patient Education: Patient Medication Summary [...] UA 04/03/2013 Appointment: Concepción Flanagan WPtel: [phone] [facility] Follow up 04/03/2013 Patient Education: Patient Medication Summary Completed 04/03/2013 Patient Education: Hypertension Completed 04/03/2013 Patient Education: Patient Medication Summary Completed 03/31/2013 Patient Education: Hypertension Completed 03/31/2013 Visit Plan: ua performed - sent for culture if indicated. 03/21/2013 Appointment: Concepción Flanagan WPtel: [phone] [facility] Lab Draw 03/21/2013 Patient Education: Patient [...] edema. 01/06/2013 Appointment: Concepción Flanagan WPtel: [phone] [facility] Follow up 01/06/2013 Patient Education: Patient Medication Summary Completed 01/06/2013 Patient Education: Hypertension Completed 01/06/2013 Visit Plan: Tksffxcau-Smfbul-wyjfgn ms not well controlled- KENALOG injection today [...] edema. 10/28/2012 Appointment: Concepción Flanagan WPtel: [phone] [facility] Follow up 10/28/2012 Patient Education: Patient [...] 09/30/2012 Appointment: Concepción Flanagan WPtel: [phone] [facility] Follow up 09/30/2012 Patient Education: Patient Medication Summary Completed 09/30/2012 Patient Education: Hypertension Completed 09/30/2012 Appointment: Concepción Flanagan WPtel: [phone] [facility] Lab Draw 09/11/2012 Patient Education: Patient [...] - resolved 08/14/2012 Appointment: Concepción Flanagan WPtel: [address] [place] [address] Follow up 08/14/2012 Patient Education: Patient Medication Summary Completed 08/14/2012 Patient Education: Hypertension Completed 08/14/2012 Visit Plan: Cellulitis - start with generic Bactrim DS as directed, return to clinic as previously directed, call for acute change in symptoms, worsening redness, warmth, discharge. 08/05/2012 Appointment: Concepción Flanagan WPtel: [address] [place] [address] Follow up 08/05/2012 Patient Education: Patient Medication [...] soften stools. 07/15/2012 Appointment: Concepción Flanagan WPtel: [address] [place] [address] Hospital follow up 07/15/2012 Patient Education: Patient Medication Summary Completed 07/15/2012 Patient Education: Hypertension Completed 07/15/2012 Visit Plan: Subungual discoloratiio n of toenail- June 10 [address] is to see Dr[address] Bee - I have discussed the case with the pt and Dr. bee and she will likely have a biopsy of the digit and avulsion of the nail. 05/27/2012 Appointment: Concepción Flanagan WPtel: [address] [place], [place] [phone] [facility] 05/27/2012 Patient Education: Patient Medication Summary Completed 05/27/2012 Appointment: Chaparrita Arrieta WPtel: [phone] [place] Follow up 05/16/2012 Visit Plan: Obesity [...] vaccine 05/03/2012 Appointment: Chaparrita Arrieta WPtel: [phone] [place] Follow up 05/03/2012 Patient Education: Patient Medication Summary Completed 05/03/2012 Visit Plan: Wound Instructions - Pt was instruced to keep the wound clean, wash with antibacterial soap, use triple antibiotic ointment, call if redness, pustular drainage, or any other acute conerns. 04/23/2012 Appointment: Concepción Flanagan WPtel: [facility] [place] Surgical Procedure 04/23/2012 Patient Education: Patient Medication Summary Completed 04/23/2012 Appointment: Concepción Flanagan WPtel: [facility] [place] Lab Draw 04/16/2012 Patient Education: [...] readings at home. Recommend follow up with test driver for clearance before knee surgery. Will get [...] to thighs. 03/25/2012 Appointment: Concepción Flanagan WPtel: [facility] [place] [address] [place] Other 03/25/2012 Patient Education: Patient Medication [...] lesion. 03/12/2012 Appointment: Chaparrita Arrieta WPtel: [phone] [phone] [place] Other 03/12/2012 Patient Education: Patient Medication [...] at home. 01/23/2012 Appointment: Concepción Flanagan WPtel: [facility]66[facility] Other 01/23/2012 Patient Education: Patient Medication Summary Completed 01/23/2012 Patient Education: High Blood Pressure: Essential Hypertension Completed 01/23/2012 Visit Plan: Breast oqij-hktz-gugtop sed natural and expected course of this diagnosis and to alert me if symptoms do not follow expected course, or if any worse. Plan for diagnostic mammogram, in meantime, instructed patient to get more supportive bra, use anti-inflammatories and monitor symptoms. Patient verbalized understanding of plan. 01/12/2012 Appointment: Chaparrita Arrieta WPtel: [phone] Other 01/12/2012 Patient Education: Patient Medication [...] current medications. 12/25/2011 Appointment: Concepción Flanagan WPtel: [facility] [place] [phone] Other 12/25/2011 Patient Education: Patient Medication Summary [...] SOCKS. 12/04/2011 Appointment: Concepción Flanagan WPtel: [phone] [facility] [place] Other 12/04/2011 Patient Education: Patient Medication Summary Completed 12/04/2011 Patient Education: High Blood Pressure: Essential Hypertension Completed 12/04/2011 Appointment: Chaparrita Arrieta WPtel: [phone] [phone] [place] Lab Draw 12/01/2011 Patient Education: Patient Medication Summary Completed 12/01/2011 Appointment: Concepción Flanagan WPtel: [phone] [facility] [place] Lab Draw 11/20/2011 Patient Education: Patient [...] worsen. 09/20/2011 Appointment: Concepción Flanagan WPtel: [facility] Other 09/20/2011 Patient Education: Patient Medication Summary Completed 09/20/2011 Patient Education: High Blood Pressure: Essential Hypertension Completed 09/20/2011 Appointment: Concepción Flanagan WPtel: [facility] [place] Other 09/13/2011 Visit Plan: Hypertension [...] benefits of treament with the above medications. Jilwbpi-axrttslm-DF negative 09/06/2011 Appointment: Chaparrita Arrieta WPtel: [phone] Other 09/06/2011 Patient Education: Patient Medication Summary [...] worsen. 08/30/2011 Appointment: Concepción Flanagan WPtel: [facility] [address] Other 08/30/2011 Patient Education: Patient Medication [...] patient's pharmacy. 08/23/2011 Appointment: Chaparrita Arrieta WPtel: [address] [place], [place] [phone] Other 08/23/2011 Patient Education: Patient Medication Summary Completed 08/23/2011 Visit Plan: Labial cyst-discussed n atural and expected course of this diagnosis and to alert me if symtpoms do not follow expected course, or if any worse. Patient and verbalized understanding. 08/09/2011 Appointment: Chaparrita Arrieta WPtel: [facility] [place] [phone] Other 08/09/2011 Patient Education: Patient Medication Summary [...] not improving. 05/04/2011 Appointment: Concepción Flanagan WPtel: [facility] [place] [address] [place] Other 05/04/2011 Patient Education: Patient Medication [...] daily. 04/19/2011 Appointment: Chaparrita Arrieta WPtel: [phone] [phone] Other 04/19/2011 Patient Education: Patient Medication Summary Completed 04/19/2011 Referral: External, Ordering Provider Referral Appointment Requested Instructions Comment take a probiotic garcia bartlett on the antibiotic doxycycline - hold [...] shot in bilateral SI joints today . Wound Instructions - Pt was instruced [...] not improve. Nocturnal hypoxia-overnight oxygen study . URI-discussed expe cted course with the [...] samples given of nexium 40mg daily. . ua performed - vane rapp for culture if indicated. Use your albuterol i nhaler 1-2 puffs every 4-6 hours as needed for cough/SOA. Call if your symptoms do not improve, or if any worse.. Pxwfmtmoq-Nexobl-kmzborrw not well controlled-KENALOG injection today in the [...] at home. Dysuria - check UA . continue with jolly car 40mg, and increase her diltiazem to 240mg daily . Obesity - chronic issue with this [...] see an ENT - Hortensia Tompkins in [place]. Treatment as follows: cefdinir - antibiotic twice [...] symptoms - refilled hydrocodone. . Hypertension - un controlled - the [...] EDEMA - GET THE COMPRESSION SOCKS. . Cellulitis - start with generic Bactrim [...] discuss with her son who is a Telesales Specialist - and consider re-evaluation for nasal pillows [...] twice daily and monitor symptoms. . Breast rykx-gprr-wjplcblmk natural and expected course of this diagnosis and to alert me if symptoms do not follow expected course, or if any worse. Plan for diagnostic mammogram, in meantime, instructed patient to get more supportive bra, use anti-inflammatories and monitor symptoms. Patient verbalized understanding of plan. . Medicare Exam - to day we [...] for health care surrogate. . Hypertension - lynne l controlled - [...] liver response to medications. . Hypertension - lynne l controlled - [...] keeping patient stabilized during the removal process. Cymbalta 30mg daily Call with any side [...] benefits of treament with the above medications. Goovjqo-gvctlxph-IR negative . Hypertension - unc ontrolled - the [...] not improve or if they worsen. . Allergies - chroni c - recommended pt to use allergy medication as prescribed. Pt has been counseled as the the appropriate use of the medication. Pt to call if allergy symptoms are not controlled with the medication. Kenalog injection today in the office. Thrush-RX for nystatin swish and swallow stop metoprolol blood pressure and heart rate [...] to further attempt to reduce peripheral edema. MIRALAX TO BE STARTE D AND TAKEN [...] to help soften stools. . Hypertension - we ll controlled - [...] pressure readings at home. Cellulitis - resolved Start Norvasc (amlod ipine) 5mg daily Stop [...] posterior arm-recommend removal and biopsy of lesion. 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 . Hypertension [...] supplier come out to do home eval. Appointment with car diology-Dr. Luther For your [...] readings at home. Recommend follow up with test driver for clearance before knee surgery. Will get [...] compression socks from toes to thighs. . Wound Instructions - Pt was instructed [...] HYDROCODONE AT 1/2 PILL TWICE DAILY . Xdgzy-vipbaoeuwe-h tart zpack when finished with cipro- follow [...] . Cough - improved - sinusitis resolved. Recommend nasal sali ne rinse . Sinusitis [...] RX sent to patient's pharmacy. Urge incontinence -P [...]
--- OUTSIDE RECORDS SUMMARY | 2020-01-05 01:34 | XMS REPORT | CCD ---
Author Author Mikala Arrieta Organization [facility] Address [address] [place] [address] Phone Care Team Providers Care Golf Caddie Name Role Phone [facility] Unavailable CCM Unavailable Summary Purpose Interface Exchange Insurance Providers Payer name Policy type / Coverage type Covered republican ID Effective Begin Date Effective End Date WPS Medicare Part B 50 [id number] 2015 Unknown AARP [id number] 2015 Unknown Family history Father Diagnosis Age At Onset Stroke Unknown Mother Diagnosis Age At Onset Tuberculosis Unknown Social History Social History Element Codes Description Effective Dates Education level Unknown College Graduate 04/23/2012 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 Marital status Unknown M arried 04/19/[address]: 2087603 Quit over 10 years ago 40 pack/year history 04/19/[address]: 310625424 Never drinks alcohol 04/19/2011 Allergies, Adverse Reactions, Alerts Allergies, Adverse Reactions, Alerts data not found Past Medical History Illness Codes Condition Status Onset Date Resolved Date Essential (primary) hypertension ICD-9: 401.1 ICD-10: I10 Active 07/05/2016 Unknown Cough ICD-9: 786.2 ICD-10: R05 Active 01/15/2017 Unknown Urinary tract infect ion, site not specified ICD-9: 599.0 ICD-10: N39.0 Active 02/02/2017 Unknown Gastro-esophageal re flux 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 ICD-9: 530.81 ICD-10: K21.9 Active 02/02/2017 Unknown Localized edema ICD-9: 782.3 ICD-10: R60.0 Active 05/07/2014 Unknown Acute recurrent maxi llary sinusitis ICD-9: 461.0 ICD-10: J01.01 Active 01/15/2017 Unknown Allergic rhinitis du e to pollen ICD-9: 477.9 ICD-10: J30.1 Active 01/04/2017 Unknown Generalized anxiety disorder ICD-9: 300.02 ICD-10: F41.1 Active 01/04/2017 Unknown Mixed hyperlipidemia ICD-9: 272.4 ICD-10: E78.2 Active 03/08/2016 Unknown Pain in left knee ICD-9: 719.46 ICD-10: M25.562 Active 04/16/2014 Unknown Major depressive dis order, recurrent, moderate ICD-9: 296.32 ICD-10: F33.1 Active 09/07/2016 Unknown Acute maxillary sinu sitis, unspecified ICD-9: 461.0 ICD-10: J01.00 Active 08/22/2016 Unknown Essential (primary) hypertension ICD-9: 401.9 ICD-10: I10 Active 04/16/2016 Unknown Hypothyroidism, unsp ecified ICD-9: 244.9 ICD-10: E03.9 Active 03/08/2016 Unknown 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 ICD-9: 327.24 ICD-10: G47.34 Active 01/17/2016 Unknown Pain in right knee ICD- 9: 719.46 ICD-10: M25.561 Active 04/16/2014 Unknown Bilateral primary os teoarthritis of knee [...] apnea Unknown Active 04/19/2011 Unknow n ACUTE BRONCHITIS ICD-9: 466.0 Active 04/19/2011 04/19/2011 ACUTE URI ICD-9: 465.9 Active 04/19/2011 Unknow [...] hypertension ICD-9: 401.1 ICD-10: I10 07/05/2016 Active Cough ICD-9: 786.2 ICD-10: R05 01/15/2017 Active Urinary tract infect ion, site not specified ICD-9: 599.0 ICD-10: N39.0 02/02/2017 Active Gastro-esophageal re flux 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 ICD-9: 530.81 ICD-10: K21.9 02/02/2017 Active Localized edema ICD-9: 782.3 ICD-10: R60.0 05/07/2014 Active Acute recurrent maxi llary sinusitis ICD-9: 461.0 ICD-10: J01.01 01/15/2017 Active Allergic rhinitis du e to pollen ICD-9: 477.9 ICD-10: J30.1 01/04/2017 Active Generalized anxiety disorder ICD-9: 300.02 ICD-10: F41.1 01/04/2017 Active Mixed hyperlipidemia ICD-9: 272.4 ICD-10: E78.2 03/08/2016 Active Pain in left knee ICD-9: 719.46 ICD-10: M25.562 04/16/2014 Active Major depressive dis order, recurrent, moderate ICD-9: 296.32 ICD-10: F33.1 09/07/2016 Active Acute maxillary sinu sitis, unspecified ICD-9: 461.0 ICD-10: J01.00 08/22/2016 Active Essential (primary) hypertension ICD-9: 401.9 ICD-10: I10 04/16/2016 Active Hypothyroidism, unsp ecified ICD-9: 244.9 ICD-10: E03.9 03/08/2016 Active 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 ICD-9: 327.24 ICD-10: G47.34 01/17/2016 Active Pain in right knee ICD- 9: 719.46 ICD-10: M25.561 04/16/2014 Active Bilateral primary os teoarthritis of knee [...] Active sleep apnea Unknown 04/19/2011 Active ACUTE BRONCHITIS ICD-9: 466.0 04/19/2011 Active ACUTE URI ICD-9: 465.9 04/19/2011 [...] Date Stop Date Sta tus Fill Instructions Zithromax Z-Hebert 250 mg tablet RxNorm: 666129 1 Tablet(s) PO UD 02/05/2017 02/09/2017 Inactive start with finished with cipro Cipro 500 mg tablet RxNorm: 416108 1 Tablet(s) PO BID 02/01/2017 02/07/2017 Inactive prednisone 20 mg tablet RxNorm: 286935 1 Tablet(s) PO BID 01/15/2017 01/19/2017 Inactive take 1 in the morning and 1 at noon Anusol-HC 25 mg rect al suppository RxNorm: 1653349 1 Suppository PRN IN SERT 1 RECTALLY DAILY NEEDED 01/04/2017 04/03/2017 Active calcium carbonate 60 0 mg calcium (1,500 mg) tablet RxNorm: 371455 1 Tablet(s) PO daily 01/04/2017 No Stop Date Active Kenalog 40 mg/mL heaven pension for injection RxNorm: 9796431 1 Milliliter(s) Inj 01/04/2017 01/04/2017 In active Lasix 40 mg tablet RxNorm: 437588 TAKE ONE TABLET BY MOUTH DAILY 12/20/2016 09/15/2017 Ac tive Cartia XT 240 mg cap chad,extended release RxNorm: 166797 TAKE ONE CAPSULE BY M [facility] DAILY 12/20/2016 09/15/2017 Active Synthroid 50 mcg tablet RxNorm: 829057 1 Tablet(s) PO daily TAKE ONE TABLET BY MOUTH DAILY 11/27/2016 05/25/2017 Active Must be name brand meloxicam 15 mg tablet RxNorm: 634185 Tablet(s) TAKE ONE TABLET BY MOUTH ONE T MARÍA ELENA A DAY 11/27/2016 06/24/2017 Active Crestor 10 mg tablet RxNorm: 456628 TAKE 1 TABLET BY MOUTH ON SUNDAY, , AND Sunday11/13/2016 10/14/2017 Active Lexapro 10 mg tablet RxNorm: 151547 1 Tablet(s) PO daily 09/07/2016 01/03/2017 Inactive please make sure that her RX for lexapro is a 10mg dose - delete the 5mg lexapro pill - this is FYI Klor-Con 10 mEq tabl et,extended release RxNorm: 609207 TAKE ONE TABLET BY MO [facility] TWICE A DAY 08/29/2016 02/24/2017 Active Kenalog 40 mg/mL heaven pension for injection RxNorm: 8928970 Milliliter(s) Inj 08/23/2016 08/23/2016 In active cefdinir 300 mg capsule RxNorm: 968196 1 Capsule(s) PO BID 08/22/2016 08/28/2016 Inactive take probiotic while on abx Zithromax Z-Hebert 250 mg tablet RxNorm: 851887 1 Tablet(s) PO UD 08/11/2016 09/06/2016 Inactive Z PACK DIRECTED Lexapro 5 mg tablet RxNorm: 352240 TAKE ONE TABLET BY MOUTH EVERY EVENING 07/18/2016 09/06/2016 In active Singulair 10 mg tablet RxNorm: 137658 TAKE ONE TABLET BY MOUTH EVERY DAY 07/17/2016 01/07/2018 Ac tive Benicar 40 mg tablet RxNorm: 828480 TAKE ONE TABLET BY MOUTH DAILY 07/17/2016 07/11/2017 Ac tive Lexapro 10 mg tablet RxNorm: 461423 1 Tablet(s) PO daily 06/16/2016 09/06/2016 Inactive diltiazem ER 180 mg capsule,extended release RxNorm: 501655 TAKE ONE CAPSULE BY M OUTH DAILY 06/15/2016 07/05/2016 Inactive Lexapro 10 mg tablet RxNorm: 947113 1 Tablet(s) PO daily 06/08/2016 06/15/2016 Inactive gabapentin 600 mg ta blet RxNorm: 469920 TAKE ONE TABLET BY MO UTH EVERY NIGHT AT BEDTIME NEEDED 04/27/2016 01/21/2017 Inactive Cartia XT 240 mg cap chad,extended release RxNorm: 735976 1 Capsule(s) PO daily TAKE ONE CAPSULE BY MOUTH ONCE A DAY 04/17/2016 12/19/2016 Inactive Benicar 40 mg tablet RxNorm: 566359 1 Tablet(s) PO daily 04/17/2016 07/16/2016 Inactive she can do 90 days if she wants to Lexapro 5 mg tablet RxNorm: 783180 1 Tablet(s) PO QPM 03/09/2016 06/07/2016 Inactive Colace 100 mg capsule RxNorm: 0390160 1 Capsule(s) PO daily 01/18/2016 No Stop Date Active hydrocodone 5 mg-patrizia taminophen 325 mg tablet RxNorm: 655738 1/2 Tablet(s) PO QID as needed 01/18/2016 02/16/2016 Inactive Synthroid 50 mcg tablet RxNorm: 574169 1 Tablet(s) PO daily TAKE ONE TABLET BY MOUTH DAILY 01/18/2016 07/15/2016 Inactive Synthroid 50 mcg tablet RxNorm: 309511 Tablet(s) TAKE ONE TABLET BY MOUTH DAILY 12/23/2015 01/17/2016 In active Benicar 40 mg tablet RxNorm: 014993 1 Tablet(s) PO daily 12/13/2015 12/12/2015 Inactive Benicar 40 mg tablet RxNorm: 129640 1 Tablet(s) PO daily 12/13/2015 04/10/2016 Inactive meloxicam 15 mg tablet RxNorm: 555609 TAKE ONE TABLET BY MOUTH ONE TIME A DAY 11/12/2015 06/08/2016 In active meloxicam 15 mg tablet RxNorm: 365174 Tablet(s) TAKE ONE TABLET BY MOUTH ONE T MARÍA ELENA A DAY 11/11/2015 11/11/2015 Inactive Lasix 40 mg tablet RxNorm: 908704 Tablet(s) TAKE ONE TABLET BY MOUTH EVERY DAY 10/19/2015 12/19/2016 Inactive diltiazem ER 180 mg capsule,extended release RxNorm: 567446 1 Capsule(s) daily TA KE ONE CAPSULE BY MOUTH ONCE A DAY 09/27/2015 04/16/2016 Inactive Crestor 10 mg tablet RxNorm: 366730 1 Tablet(s) PO Sun09/17/2015 07/12/2016 Inactive [SAVINGS FOR UNINSURED PATIENTS -- BIN:0 01482, PCN: ASPROD1, Group: [id number], ID# [id number], Process claim through [employer], for questions: . THIS IS NOT INSURANCE.] hydrocodone 5 mg-patrizia taminophen 325 mg tablet RxNorm: 733314 1-2 Tablet(s) PO Q6 P RN 09/09/2015 10/08/2015 In active Micardis 80 mg tablet RxNorm: 081349 1 Tablet(s) PO daily TAKE ONE TABLET BY MOUTH DAILY 08/23/2015 12/12/2015 Inactive Klor-Con 10 mEq tabl et,extended release RxNorm: 727160 Tablet(s) TAKE ONE TA BLET BY MOUTH TWICE A DAY 08/23/2015 02/18/2016 Inactive Synthroid 50 mcg tablet RxNorm: 576642 TAKE ONE TABLET BY MOUTH DAILY 07/06/2015 12/22/2015 In active meloxicam 15 mg tablet RxNorm: 038506 TAKE ONE TABLET BY MOUTH ONE TIME A DAY 06/22/2015 11/10/2015 In active Singulair 10 mg tablet RxNorm: 146717 TAKE ONE TABLET BY MOUTH EVERY DAY 05/18/2015 07/16/2016 In active Micardis 80 mg tablet RxNorm: 880055 TAKE ONE TABLET BY MOUTH DAILY 02/22/2015 05/04/2015 In active gabapentin 600 mg ta blet RxNorm: 624783 1 Tablet(s) PO HS as needed 01/15/2015 01/09/2016 Inactive [SAVINGS FOR NON-COVERED DRUGS -- BIN:00 3585, PCN: ASPROD1, Group: [id number], ID# [id number], Questions: . THIS IS NOT INSURANCE.] diltiazem ER 180 mg capsule,extended release RxNorm: 744792 TAKE ONE CAPSULE BY M OUTH ONCE A DAY 01/07/2015 09/26/2015 Inactive meloxicam 15 mg tablet RxNorm: 533251 TAKE ONE TABLET BY MOUTH ONE TIME A DAY 11/09/2014 05/07/2015 In active gabapentin 600 mg ta blet RxNorm: 700930 1 Tablet(s) PO HS as needed 10/13/2014 01/14/2015 Inactive [SAVINGS FOR UNINSURED PATIENTS -- BIN:0 57912, PCN: ASPROD1, Group: [id number], ID# [id number], Process claim through [employer], for questions: . THIS IS NOT INSURANCE.] omeprazole 20 mg tab let,delayed release RxNorm: 729639 1 Tablet(s) PO daily 10/13/2014 11/11/2014 In active Synthroid 50 mcg tablet RxNorm: 241247 TAKE ONE TABLET BY MOUTH EVERY DAY 10/12/2014 01/09/2015 In active Synthroid 50 mcg tablet RxNorm: 385785 Tablet(s) TAKE ONE TABLET BY MOUTH EVERY DAY 10/12/2014 10/11/2014 Inactive [SAVINGS FOR UNINSURED PATIENTS -- BIN:0 48816, PCN: ASPROD1, Group: [id number], ID# [id number], Process claim through [employer], for questions: . THIS IS NOT INSURANCE.] Lasix 40 mg tablet RxNorm: 737116 Tablet(s) PO TAKE ONE TABLET BY MOUTH TW ICE A DAY FOR 3 DAYS, THEN RESUME ONE DAILY EXCEPT ON WEDNESDAYS AND FRIDAYS TAKE ONE TWICE DAILY 09/22/2014 No Stop Date Active [SAVINGS FOR UNINSURED PATIE NTS -- BIN:338132, PCN: ASPROD1, Group: [id number], ID# [id number], Process claim through [employer], for questions: . THIS IS NOT INSURANCE.] Lasix 40 mg tablet RxNorm: TAKE ONE TABLET BY MOUTH EVERY DAY 09/22/2014 10/18/2015 In active Crestor 10 mg tablet RxNorm: 555622 1 Tablet(s) PO Sun08/28/2014 04/24/2015 Inactive [SAVINGS FOR UNINSURED PATIENTS -- BIN:0 28978, PCN: ASPROD1, Group: [id number], ID# [id number], Process claim through [employer], for questions: . THIS IS NOT INSURANCE.] Crestor 10 mg tablet RxNorm: 622011 1 Tablet(s) PO Sun08/28/2014 08/27/2014 Inactive [SAVINGS FOR UNINSURED PATIENTS -- BIN:0 90341, PCN: ASPROD1, Group: [id number], ID# [id number], Process claim through [employer], for questions: . THIS IS NOT INSURANCE.] Micardis 80 mg tablet RxNorm: 008858 TAKE ONE TABLET BY MOUTH EVERY DAY 08/24/2014 12/21/2014 In active Zithromax Z-Hebert 250 mg tablet RxNorm: 655239 Tablet(s) PO UD 08/14/2014 08/18/2014 Inactive 2 tabs day 1, 1 tabs days 2-5 Anusol-HC 25 mg supp ository RxNorm: 0477554 INSERT 1 RECTALLY DA GUSTAVO NEEDED 07/13/2014 10/10/2014 In active Klor-Con 10 mEq tabl et,extended release RxNorm: 215754 TAKE ONE TABLET BY [facility] TWICE A DAY 06/18/2014 12/14/2014 Inactive Lomotil 2.5 mg-0.025 mg tablet RxNorm: 1204718 1 Tablet(s) PO PRN a fter each loose stool max 8 per day 06/15/2014 10/12/2014 Inactive one after each loose bm juarez it 8 per day albuterol sulfate HF A 90 mcg/actuation aerosol inhaler RxNorm: 4196286 1 or2 Puff(s) INH Q4 PRN as needed 05/11/2014 05/10/2014 Inactive albuterol sulfate HF A 90 mcg/actuation aerosol inhaler RxNorm: 1087858 1 or2 Puff(s) INH Q4 PRN as needed 05/11/2014 01/03/2017 Inactive Premarin 0.625 mg/gr am vaginal cream RxNorm: 832789 1/2 Gram(s) VAG every other day 05/11/2014 12/06/2014 In active Premarin 0.625 mg/gr am vaginal cream RxNorm: 192892 1/2 Gram(s) VAG every other day 05/11/2014 05/10/2014 In active cefdinir 300 mg capsule RxNorm: 509720 1 Capsule(s) PO BID 05/07/2014 05/16/2014 Inactive Rocephin 500 mg solu tion for injection RxNorm: 935487 1 Milliliter(s) Inj 05/07/2014 05/07/2014 In active Singulair 10 mg tablet RxNorm: 717835 TAKE ONE TABLET BY MOUTH EVERY DAY 04/30/2014 10/12/2014 In active meloxicam 15 mg tablet RxNorm: 249361 1 Tablet(s) PO daily 04/16/2014 11/08/2014 Inactive Crestor 10 mg tablet RxNorm: 613096 1 Tablet(s) PO Sun TAKE ONE TAB LET BY MOUTH EVERY DAY 04/16/2014 08/27/2014 Inactive Synthroid 50 mcg tablet RxNorm: 070476 TAKE ONE TABLET BY MOUTH EVERY DAY 04/02/2014 09/28/2014 In active diltiazem ER 180 mg capsule,extended release RxNorm: 820193 1 Capsule(s) PO daily 01/05/2014 12/30/2014 In active Pennsaid 1.5 % topic al drops RxNorm: 186460 Drop(s) TOP APPLY 15 - 20 DROPS TOPICALLY FOUR TIMES A DAY 12/29/2013 01/17/2016 Inactive Rocephin 500 mg solu tion for injection RxNorm: 853404 Inj 12/2612/26/2013 Inactive Kenalog 40 mg/mL heaven pension for injection RxNorm: 5990459 Milliliter(s) Inj 12/26/2013 12/26/2013 In active Micardis 80 mg tablet RxNorm: 271998 Tablet(s) PO TAKE ONE TABLET BY MOUTH 12/15/2013 08/23/2014 Inactive nystatin 100,000 uni t/mL oral suspension RxNorm: 095741 4 Unit(s) PO QID swis h and swallow 11/12/2013 12/09/2013 Inactive Kenalog 40 mg/mL heaven pension for injection RxNorm: 4495131 Milliliter(s) Inj 11/12/2013 11/12/2013 In active Lasix 40 mg tablet RxNorm: 964534 Tablet(s) PO TAKE ONE TABLET BY MOUTH TW ICE A DAY FOR 3 DAYS, THEN RESUME ONE DAILY EXCEPT ON WEDNESDAYS AND FRIDAYS TAKE ONE TWICE DAILY 10/30/2013 09/21/2014 Inactive Lasix 40 mg tablet RxNorm: 961852 1 Tablet(s) PO daily 10/30/2013 10/29/2013 Inactive Rocephin 500 mg solu tion for injection RxNorm: 207861 1 Milliliter(s) Inj 10/09/2013 10/09/2013 In active metoprolol succinate ER 25 mg tablet,extended release 24 hr RxNorm: 577658 Tablet(s) PO TAKE ONE TABLET BY MOUTH EVERY DAY 10/02/2013 01/06/2014 Inactive metoprolol succinate ER 25 mg tablet,extended release 24 hr RxNorm: 517070 Tablet(s) PO TAKE ONE TABLET BY MOUTH EVERY DAY 08/04/2013 10/01/2013 Inactive Synthroid 50 mcg tablet RxNorm: 634620 Tablet(s) PO TAKE ONE TABLET BY MOUTH EV DEANNA DAY 07/14/2013 04/01/2014 Inactive gabapentin 600 mg ta blet RxNorm: 566340 1 Tablet(s) PO Q8 PRN 06/11/2013 06/11/2013 Inactive gabapentin 600 mg ta blet RxNorm: 813041 1 Tablet(s) PO Q8 PRN 06/11/2013 03/07/2014 Inactive Neurontin 600 mg tablet RxNorm: 525503 1 Tablet(s) PO Q8 PRN 06/10/2013 06/11/2013 Inactive Anusol-HC 25 mg supp ository RxNorm: 7946876 Suppository RTL INSE RT 1 RECTALLY DAILY NEEDED 04/24/2013 07/12/2014 Inactive metoprolol succinate ER 25 mg tablet,extended release 24 hr RxNorm: 114263 1 Tablet(s) PO daily 04/21/2013 08/03/2013 Inactive Premarin 0.625 mg/gr am Vaginal Cream RxNorm: 379506 1/2 Gram(s) VAG every other day 04/03/2013 10/29/2013 In active Klor-Con 10 mEq tabl et,extended release RxNorm: 802564 1 Tablet(s) PO daily 03/26/2013 03/20/2014 In active Klor-Con 10 mEq tabl et,extended release RxNorm: 693845 1 Tablet(s) PO BID 03/24/2013 03/23/2013 In active Klor-Con 10 mEq tabl et,extended release RxNorm: 192027 1 Tablet(s) PO BID 03/24/2013 03/25/2013 In active Klor-Con 10 mEq tabl et,extended release RxNorm: 049589 1 Tablet(s) PO BID 03/24/2013 03/23/2013 In active Augmentin 875 mg-125 mg tablet RxNorm: 887375 1 Tablet(s) PO BID 03/12/2013 03/18/2013 Inactive Augmentin 875 mg-125 mg tablet RxNorm: 653731 1 Tablet(s) PO BID 03/12/2013 03/11/2013 Inactive ciprofloxacin 500 mg tablet RxNorm: 490645 1 Tablet(s) PO BID 03/11/2013 03/17/2013 Inactive ciprofloxacin 500 mg tablet RxNorm: 325957 1 Tablet(s) PO BID 03/11/2013 03/10/2013 Inactive Crestor 10 mg tablet RxNorm: 824265 1 Tablet(s) PO daily 02/10/2013 02/09/2013 Inactive Crestor 10 mg tablet RxNorm: 038464 Tablet(s) PO TAKE ONE TABLET BY MOUTH EV DEANNA DAY 02/10/2013 04/15/2014 Inactive Singulair 10 mg tablet RxNorm: 446308 Tablet(s) PO TAKE ONE TABLET BY MOUTH EV DEANNA DAY 02/04/2013 04/29/2014 Inactive Kenalog 40 mg/mL Heaven p for Injection RxNorm: 8739648 1 Milliliter(s) Inj 11/21/2012 11/21/2012 In active Pennsaid 1.5 % topic al drops RxNorm: 734796 15-20 Drop(s) TOP QID 10/28/2012 11/21/2013 Inactive Micardis 80 mg tablet RxNorm: 938964 1 Tablet(s) PO daily 10/28/2012 10/22/2013 Inactive put this on file please, quantitiy incre ase Pennsaid 1.5 % Topic al Drops RxNorm: 139264 15-20 Drop(s) TOP QID 10/28/2012 10/27/2012 Inactive diltiazem ER 180 mg capsule,extended release RxNorm: 060890 1 Capsule(s) PO daily 10/14/2012 10/08/2013 In active Pyridium 200 mg tablet RxNorm: 5658935 1 Tablet(s) PO Q8 PRN 09/11/2012 10/12/2014 Inactive Flagyl 500 mg tablet RxNorm: 578572 1 Tablet(s) PO TID 09/04/2012 09/10/2012 Inactive Macrobid 100 mg capsule RxNorm: 577822 1 Capsule(s) PO BID 09/03/2012 09/02/2012 Inactive Macrobid 100 mg capsule RxNorm: 741297 1 Capsule(s) PO BID 09/03/2012 09/09/2012 Inactive sulfamethoxazole-tri methoprim 800 mg-160 mg tablet RxNorm: 226663 1 Tablet(s) PO BID 08/05/2012 08/14/2012 Inactive Lasix 40 mg tablet RxNorm: 196451 1 Tablet(s) PO BID pt is taking extra la six x 3 days, then every sunday and sunday take two lasix pills. 07/15/2012 07/09/2013 Inactive Synthroid 50 mcg tablet RxNorm: 088501 1 Tablet(s) PO daily 07/15/2012 07/09/2013 Inactive do not substitute the generic levothyrox ine for the synthroid brand name.....she needs brand name synthroid. Klor-Con 10 mEq tabl et,extended release RxNorm: 329006 1 Tablet(s) PO BID 07/15/2012 03/23/2013 In active Singulair 10 mg tablet RxNorm: 515263 1 Tablet(s) PO daily 06/12/2012 02/03/2013 Inactive Lexapro 10 mg tablet RxNorm: 732566 1/2 Tablet(s) PO daily 05/10/2012 06/03/2013 Inactive ProAir HFA 90 mcg/ac tuation Aerosol Inhaler RxNorm: 997684 2 INH Q6 PRN 04/23/2012 01/17/2016 In active Lexapro 10 mg tablet RxNorm: 036742 1/2 Tablet(s) PO daily 04/19/2012 05/09/2012 Inactive metoprolol succinate ER 50 mg tablet,extended release 24 hr RxNorm: 303760 1 Tablet(s) PO daily 04/09/2012 04/09/2012 Inactive Klor-Con 10 10 mEq t ablet,extended release RxNorm: 800549 1 Tablet(s) PO daily 04/01/2012 07/14/2012 In active metoprolol succinate ER 50 mg tablet,extended release 24 hr RxNorm: 213695 1/2 Tablet(s) PO BID 03/11/2012 04/08/2012 Inactive clonidine 0.1 mg Tab RxNorm: 235899 1 Tablet(s) PO BID 02/19/2012 03/12/2012 Inactive clonidine 0.1 mg Tab RxNorm: 773204 1 Tablet(s) PO BID 02/19/2012 02/18/2012 Inactive Micardis 80 mg Tab RxNorm: 467514 1 Tablet(s) PO daily 02/14/2012 02/13/2012 Inactive Micardis 80 mg tablet RxNorm: 751802 1 Tablet(s) PO daily 02/14/2012 10/27/2012 Inactive Synthroid 50 mcg tablet RxNorm: 313127 1 Tablet(s) PO daily 02/12/2012 07/14/2012 Inactive Tekturna 300 mg Tab RxNorm: 6748132 1 Tablet(s) PO daily 02/12/2012 03/12/2012 Inactive Lasix 40 mg Tab RxNorm: 736228 1 Tablet(s) PO daily 12/18/2011 12/17/2011 Inactive Lasix 40 mg tablet RxNorm: 915289 1 Tablet(s) PO daily 12/18/2011 07/14/2012 Inactive Anusol-HC 25 mg Supp ository RxNorm: 4684836 1 Suppository RTL QD AY PRN 12/04/2011 04/19/2012 In active lactobacillus acidop hilus Cap RxNorm: 1 Capsule(s) PO BID 11/21/2011 11/20/2011 Inactive lactobacillus acidop hilus Cap RxNorm: 1 Capsule(s) PO BID 11/21/2011 11/20/2011 Inactive Cipro 500 mg Tab RxNorm: 113824 1 Tablet(s) PO BID 11/21/2011 03/12/2012 Inactive lactobacillus acidop hilus Cap RxNorm: 1 Capsule(s) PO BID 11/21/2011 11/27/2011 Inactive lactobacillus acidop hilus Cap RxNorm: 1 Capsule(s) PO BID 11/21/2011 11/20/2011 Inactive Cipro 500 mg Tab RxNorm: 800547 1 Tablet(s) PO BID 11/21/2011 11/20/2011 Inactive Lexapro 10 mg Tab RxNorm: 883266 1 Tablet(s) PO daily 11/13/2011 11/12/2011 Inactive Lexapro 10 mg tablet RxNorm: 444096 1 Tablet(s) PO daily 11/13/2011 04/18/2012 Inactive amlodipine 10 mg Tab RxNorm: 630044 1 Tablet(s) PO daily 10/09/2011 12/03/2011 Inactive amlodipine 5 mg Tab RxNorm: 799029 1 Tablet(s) PO daily 09/20/2011 12/04/2011 Inactive Rocephin 500 mg Solu tion for Injection RxNorm: 319624 Inj 08/3009/20/2011 Inactive metoprolol succinate ER 25 mg 24 hr Tab RxNorm: 576397 1 Tablet(s) PO QHS 08/30/2011 09/20/2011 In active Ambien 10 mg Tab RxNorm: 737281 1 Tablet(s) PO HS PRN 08/30/2011 04/19/2012 Inactive Augmentin 875 mg-125 mg Tab RxNorm: 092288 1 Tablet(s) PO BID 08/25/2011 09/20/2011 Inactive Augmentin 875 mg-125 mg Tab RxNorm: 569357 1 Tablet(s) PO BID 08/25/2011 08/24/2011 Inactive Rocephin 500 mg Solu tion for Injection RxNorm: 122492 Inj 08/2308/23/2011 Inactive Levaquin 500 mg Tab RxNorm: 601703 1 Tablet(s) PO daily 08/23/2011 08/30/2011 Inactive chlordiazepoxide-cli dinium 5 mg-2.5 mg Cap RxNorm: 672951 1 Capsule(s) PO BID 07/10/2011 04/19/2012 In active q 12 hours prn metoprolol succinate ER 100 mg 24 hr Tab RxNorm: 307797 1 Tablet(s) PO daily 05/29/2011 03/12/2012 In active Synthroid 50 mcg Tab RxNorm: 503254 1 Tablet(s) PO daily 05/15/2011 08/12/2011 Inactive Ambien CR 12.5 mg Tab RxNorm: 694867 1 Tablet(s) PO HS PRN 05/09/2011 08/30/2011 Inactive Ambien 10 mg Tab RxNorm: 405230 1 Tablet(s) PO QHS 05/09/2011 06/07/2011 Inactive Nexium 40 mg Cap RxNorm: 095636 1 Capsule(s) PO daily 05/04/2011 03/12/2012 Inactive the patient had tried pepcid, otc priolosec, RX omperazole, failed them all Bactrim DS 800 mg-16 0 mg Tab RxNorm: 458940 1 Tablet(s) PO BID 04/19/2011 08/30/2011 Inactive triamcinolone aceton margie 40 mg/mL Susp for Injection RxNorm: 3013492 1 Milliliter(s) Inj UD 04/19/2011 04/19/2011 Inactive aspirin 81 mg Tab, D elayed Release RxNorm: 092404 1 Tablet(s) PO daily No Start Date Active Centrum Silver Ultra Women's oral RxNorm: [address] art Date Active Probiotic & Acidophi jerilyn oral RxNorm: oral No Start D ate Active Fish Oil 1,000 mg Cap RxNorm: 1 Capsule(s) PO daily No Start Date Active Tylenol Extra Streng th 500 mg tablet RxNorm: 619692 1 Tablet(s) PO BID as needed for pain No Start Date Active 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 Device RxNorm: Miscellaneous 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, 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 No Start Date Active Cymbalta 30 mg Cap RxNorm: 664265 1 Capsule(s) PO daily No Start Date 03/12/2012 Inactive Nexium 40 mg Cap RxNorm: 164368 Capsule(s) PO No Start Date 05/03/2011 Inactive Benadryl 25 mg capsule RxNorm: 8766125 1 Capsule(s) PO QHS No Start Date 01/03/2017 Inactive Klor-Con 10 10 mEq t ablet,extended release RxNorm: 794374 1 Tablet(s) PO daily No Start Date 03/31/2012 Inactive Metamucil Oral RxNorm: Oral No Start Date 10/12/2014 Inactive amlodipine 10 mg Tab RxNorm: 633439 1 Tablet(s) PO daily No Start Date 10/08/2011 Inactive Norvasc 5 mg tablet RxNorm: 522714 1 Tablet(s) PO daily No Start Date 10/12/2014 Inactive Lasix 40 mg Tab RxNorm: 979611 1 Tablet(s) PO daily No Start Date 12/17/2011 Inactive diltiazem ER (XR/XT) 240 mg capsule,extended release,controlled RxNorm: 770233 1 Capsule(s) PO daily No Start Date 04/22/2012 Inactive Synthroid 50 mcg Tab RxNorm: 107884 1 Tablet(s) PO daily No Start Date 05/14/2011 Inactive Flagyl 500 mg tablet RxNorm: 426197 1 Tablet(s) PO No Start Date 09/03/2012 Inactive one after each loose bm limit 8 per day Boniva 150 mg Tab RxNorm: 123709 1 Tablet(s) PO UD No Start Date 08/30/2011 Inactive monthly Singulair 10 mg tablet RxNorm: 762856 1 Tablet(s) PO daily No Start Date 06/11/2012 Inactive folic acid Oral RxNorm: Oral No Start Date 03/12/2012 Inactive potassium chloride E R 10 mEq tablet,extended release RxNorm: 660723 1 Tablet(s) PO daily No Start Date 01/03/2017 Inactive Librium 10 mg Cap RxNorm: 392000 Capsule(s) PO UD No Start Date 03/12/2012 Inactive q 12 hours prn Crestor 10 mg tablet RxNorm: 938894 1 Tablet(s) PO daily No Start Date 02/09/2013 Inactive multivitamin Cap RxNorm: 1 Capsule(s) PO daily No Start Date 01/17/2016 Inactive metoprolol succinate ER 100 mg 24 hr Tab RxNorm: 401467 1 Tablet(s) PO daily No Start Date 05/28/2011 Inactive Zithromax Z-Hebert 250 mg tablet RxNorm: 186776 Tablet(s) PO UD No Start Date 12/22/2015 Inactive diltiazem ER 180 mg capsule,extended release RxNorm: 381756 1 Capsule(s) PO daily No Start Date 10/13/2012 Inactive Tekturna 300 mg Tab RxNorm: 1594317 1 Tablet(s) PO daily samples No Start Date 02/11/2012 Inactive ProAir HFA 90 mcg/ac tuation Aerosol Inhaler RxNorm: 387180 2 INH Q6 PRN No Start Date 04/22/2012 Inactive chlordiazepoxide-cli dinium 5 mg-2.5 mg Cap RxNorm: 110914 1 Capsule(s) PO PRN No Start Date 07/09/2011 Inactive q 12 hours prn Butrans 5 mcg/hour T ransderm Patch RxNorm: 932095 1 Patch TD weekly No Start Date 05/26/2012 Inactive Lactobacillus acidop hilus tablet RxNorm: 4 Tablet(s) PO daily No Start Date 01/03/2017 Inactive Librax (with clidini um) 5 mg-2.5 mg capsule RxNorm: 982523 1 Capsule(s) PO BID No Start Date 04/18/2012 Inactive Nexium 40 mg capsule ,delayed release RxNorm: 157471 Capsule(s) PO PRN No Start Date 10/12/2014 Inactive Premarin 0.625 mg/gr am Vaginal Cream RxNorm: 271259 Gram(s) VAG No Start Date 03/12/2012 Inactive three times a week, small amt to vaginal tissuesample given metoprolol succinate ER 50 mg tablet,extended release 24 hr RxNorm: 995839 1 Tablet(s) PO daily No Start Date 03/10/2012 Inactive Zithromax Z-Hebert 250 mg tablet RxNorm: 275815 Tablet(s) PO UD No Start Date 08/13/2014 Inactive albuterol sulfate HF A 90 mcg/actuation aerosol inhaler RxNorm: 0270983 1 or2 Puff(s) INH Q4 PRN No Start Date 05/10/2014 Inactive Xanax 0.25 mg Tab RxNorm: 089292 1/2-1 Tablet(s) PO Q8 PRN No Start Date 03/12/2012 Inactive metoprolol succinate ER 25 mg tablet,extended release 24 hr RxNorm: 826714 1 Tablet(s) PO daily No Start Date 04/20/2013 Inactive Zithromax Z-Hebert 250 mg tablet RxNorm: 769814 1 Tablet(s) PO UD No Start Date 08/10/2016 Inactive Z PACK DIRECTED calcium carbonate 60 0 mg (1,500 mg) Tab RxNorm: 271617 1 Tablet(s) PO BID No Start Date 01/03/2017 Inactive albuterol sulfate HF A 90 mcg/Actuation Aerosol Inhaler RxNorm: 391824 1-2 Puff(s) INH Q4 PRN No Start Date 03/11/2012 Inactive Vitamin D3 2,000 uni t capsule RxNorm: 843436 1 Capsule(s) PO daily No Start Date 10/12/2014 Inactive Colace 100 mg Cap RxNorm: 5011161 1 Capsule(s) PO BID No Start Date 01/17/2016 Inactive Neurontin 600 mg tablet RxNorm: 809679 1 Tablet(s) PO Q8 PRN No Start Date 06/09/2013 Inactive Lomotil 2.5 mg-0.025 mg tablet RxNorm: 2806766 1 Tablet(s) PO No Start Date 06/14/2014 Inactive one after each loose bm limit 8 per day Micardis 80 mg Tab RxNorm: 071581 1 Tablet(s) PO daily No Start Date 12/03/2011 Inactive Pyridium 200 mg tablet RxNorm: 1363673 1 Tablet(s) PO Q8 PRN No Start Date 09/10/2012 Inactive Medication Administered Medication Codes Instruc tions Start Date Status Kenalog 40 mg/mL suspension for injection RxNorm: 1609967 1Milliliter 01/04/2017 N o longer Active Kenalog 40 mg/mL suspension for injection RxNorm: 0883057 Milliliter 08/23/2016 No longer Active Rocephin 500 mg solution for injection RxNorm: 601779 1Milliliter 05/07/2014 N o longer Active Kenalog 40 mg/mL suspension for injection RxNorm: 9239225 Milliliter 12/26/2013 No longer Active Rocephin 500 mg solution for injection RxNorm: 917639 12/26/2013 No longer A ctive Kenalog 40 mg/mL suspension for injection RxNorm: 4185654 Milliliter 11/12/2013 No longer Active Rocephin 500 mg solution for injection RxNorm: 823325 1Milliliter 10/09/2013 N o longer Active Kenalog 40 mg/mL Susp for Injection RxNorm: 2555928 1Milliliter 11/21/2012 N o longer Active Rocephin 500 mg Solution for Injection RxNorm: 335087 08/23/2011 No longer A ctive triamcinolone acetonide 40 mg/mL Susp for Injection RxNorm: 3714286 1MilliliterUD 04/19/2011 No longer Active Immunizations Vaccine Codes Date Status Influenza CVX: 141 06/16 completed Pneumococcal CVX: [...] exam ordered as part of [facility] general medical examination ICD-9: V72.62 11/12/2013 [...] 26.3 % 03/09/2016 Cbc With Differential Ord2 Traverse% 8.5 % 03/09/2016 Cbc With Differential Ord2 [...] 2.38 K/ul 03/09/2016 Cbc With Differential Ord2 Traverse ABS# 0.8 K/ul 03/09/2016 Cbc With Differential Ord2 Eos ABS# 0.2 K/ul 03/09/2016 Cbc With Differential Ord2 Baso ABS# 0.1 K/ul 03/09/2016 Comp Metabolic Pkt641 NA 138 mEq/L 03/09/2016 Comp Metabolic Abt846 K 4.5 mEq/L 03/09/2016 Comp Metabolic Bga718 CL 100 mEq/L 03/09/2016 Comp Metabolic Chz096 CO2 33.0 mEq/L 03/09/2016 Comp Metabolic Pmx722 AN ION GAP 10 03/09/2016 Comp Metabolic Xwt032 GL UCOSE 94 mg/dL 03/09/2016 Comp Metabolic Mau545 Cr eat 0.6 mg/dL 03/09/2016 Comp Metabolic Ydg483 eG FR 106 ml/min/1.73m2 02/24 Comp Metabolic Dup419 BUN 10 mg/dL 03/09/2016 Comp Metabolic Tcj445 B/ C Ratio 17.2 Ratio 03/09/2016 Comp Metabolic Oql536 CA LCIUM 9.2 mg/dL 03/09/2016 Comp Metabolic Erv358 AL K PHOS 64 U/L 03/09/2016 Comp Metabolic Nmo402 T(SGOT) 20 U/L 03/09/2016 Comp Metabolic Yrv485 AL T(SGPT) 11 U/L 03/09/2016 Comp Metabolic Lau083 BI LI T 0.9 mg/dL 03/09/2016 Comp Metabolic Bkc785 AL BUMIN 4.0 g/dL 03/09/2016 Comp Metabolic Hyx011 TP RO 6.1 g/dL 03/09/2016 Comp Metabolic Iiu577 GL OB 2.1 g/dL 03/09/2016 Comp Metabolic Qqg062 A/ G Ratio 1.9 Ratio 03/09/2016 Comp Metabolic Bri363 Os mo 274 mOsmo 03/09/2016 Free T4 Qxr633 FREE T4 0.90 ng/dL 03/09/2016 Lipid Ord30 [...] hTSH II 3.25 uIU/mL 09/07/2015 Free T4 Dxw765 FREE T4 0.79 ng/dL 09/07/2015 Comp Metabolic Hzt445 NA 137 mEq/L 09/07/2015 Comp Metabolic Hnj693 K 4.0 mEq/L 09/07/2015 Comp Metabolic Lwh837 CL 98 mEq/L 09/07/2015 Comp Metabolic Ubn175 CO2 30.0 mEq/L 09/07/2015 Comp Metabolic Kmq197 AN ION GAP 13 09/07/2015 Comp Metabolic Chy123 GL UCOSE 101 mg/dL 09/07/2015 Comp Metabolic Zie577 Cr eat 0.6 mg/dL 09/07/2015 Comp Metabolic Ane569 eG FR 111 ml/min/1.73m2 08/27 Comp Metabolic Vvd125 BUN 16 mg/dL 09/07/2015 Comp Metabolic Pdu916 B/ C Ratio 28.6 Ratio 09/07/2015 Comp Metabolic Atl260 CA LCIUM 9.4 mg/dL 09/07/2015 Comp Metabolic Mft566 AL K PHOS 68 U/L 09/07/2015 Comp Metabolic Uhl114 T(SGOT) 16 U/L 09/07/2015 Comp Metabolic Nno920 AL T(SGPT) 12 U/L 09/07/2015 Comp Metabolic Dal930 BI LI T 0.9 mg/dL 09/07/2015 Comp Metabolic Gqq417 AL BUMIN 4.1 g/dL 09/07/2015 Comp Metabolic Kvp618 TP RO 6.5 g/dL 09/07/2015 Comp Metabolic Nfe565 GL OB 2.4 g/dL 09/07/2015 Comp Metabolic Nqg829 A/ G Ratio 1.7 Ratio 09/07/2015 Comp Metabolic Cpu857 Os mo 275 mOsmo 09/07/2015 Cbc With [...] Differential Ord2 RDW 14.4 % 09/07/2015 TSH 7532152 TSH 0.920 uIU/ML 08/28/2014 CBC 5797573 WBC 12.5 10e9/L 08/28/2014 CBC 7211247 RBC 3.44 10e12/L 08/28/2014 CBC 6163424 HGB 10.3 g/dL 08/28/2014 CBC 9392294 HCT DET 33.9 % 08/28/2014 CBC 5704236 MCV 98.5 fL 08/28/2014 CBC 9737219 MCH 29.9 pg 08/28/2014 CBC 7526686 MCHC 30.4 g/dL 08/28/2014 CBC 0290658 PLT 412 10e9/L 08/28/2014 CBC 2163922 MPV 10.2 fL 08/28/2014 CBC 1653051 NNEKA % 68.5 % 08/28/2014 CBC 5155656 LY % 20.8 % 08/28/2014 CBC 7120824 MON % 9.9 % 08/28/2014 CBC 7099601 EOS % 0.6 % 08/28/2014 CBC 5810154 BASO % 0.2 % 08/28/2014 CBC 3851024 RDW 15.8 % 08/28/2014 CBC 4818557 ABS NNEKA 8.56 10e9/L 08/28/2014 CBC 2114436 ABS LYMPH 2.60 10e9/L 08/28/2014 CBC 5958118 ABS MONO 1.24 10e9/L 08/28/2014 CBC 3923476 ABS EOS 0.08 10e9/L 08/28/2014 CBC 8056299 ABS BASO 0.03 10e9/L 08/28/2014 CBC 2780809 RDW-SD 55.4 fL 08/28/2014 GFR CALC 0592283 GFR AA >60 ML/MIN 08/28/2014 GFR CALC 1524136 GFR NON -AA >60 ML/MIN 08/28/2014 LIPID GRP 4468130 HDL TE ST 69 MG/DL 08/28/2014 LIPID GRP TRIG 158 MG/DL 08/28/2014 LIPID GRP 2752455 TEST L DL 96 MG/DL 08/28/2014 LIPID GRP 5410316 CHOL 197 MG/DL 08/28/2014 LIPID GRP 3237653 RCHOL/ HDL 2.86 RATIO 08/28/2014 LIPID GRP NON-HD L CH 128 MG/DL 08/28/2014 CHEM 14 6276680 AST 14 U/L 08/28/2014 CHEM 14 4243612 ALT 13 IU/L 08/28/2014 CHEM 14 2402174 BUN 15 MG/DL 08/28/2014 CHEM 14 2980271 ALBUMIN 4.2 GM/DL 08/28/2014 CHEM 14 9186927 CHLORIDE 98 MMOL/L 08/28/2014 CHEM 14 8869014 BILI TOT 1.2 MG/DL 08/28/2014 CHEM 14 0277186 ALK PHOS 68 U/L 08/28/2014 CHEM 14 9136878 SODIUM 137 MMOL/L 08/28/2014 CHEM 14 2429088 CREATINI NE 0.68 MG/DL 08/28/2014 CHEM 14 5062998 CALCIUM 9.1 MG/DL 08/28/2014 CHEM 14 9658714 POTASSIUM 3.7 MMOL/L 08/28/2014 CHEM 14 6732563 PROT TOT 6.2 GM/DL 08/28/2014 CHEM 14 3393362 GLUCOSE 91 MG/DL 08/28/2014 CHEM 14 5157913 BICARB 31 MMOL/L 08/28/2014 CHEM 14 4183874 ANION GAP 8 MEQ/L 08/28/2014 FREE T4 0051580 FREE T4 1.44 NG/DL 08/28/2014 LIPID GRP HDL TE ST 73 MG/DL 04/16/2014 LIPID GRP TRIG 131 MG/DL 04/16/2014 LIPID GRP 2112229 TEST L DL 99 MG/DL 04/16/2014 LIPID GRP CHOL 198 MG/DL 04/16/2014 LIPID GRP 9902455 RCHOL/ HDL 2.71 RATIO 04/16/2014 LIPID GRP 1882674 NON-HD L CH 125 MG/DL 04/16/2014 CHEM 14 1307445 AST 17 U/L 04/14/2014 CHEM 14 4083909 ALT 17 IU/L 04/14/2014 CHEM 14 8124410 BUN 15 MG/DL 04/14/2014 CHEM 14 1824249 ALBUMIN 4.3 GM/DL 04/14/2014 CHEM 14 7016063 CHLORIDE 96 MMOL/L 04/14/2014 CHEM 14 6199504 BILI TOT 0.9 MG/DL 04/14/2014 CHEM 14 2103450 ALK PHOS 65 U/L 04/14/2014 CHEM 14 7239933 SODIUM 135 MMOL/L 04/14/2014 CHEM 14 2667858 CREATINI NE 0.69 MG/DL 04/14/2014 CHEM 14 3605467 CALCIUM 9.5 MG/DL 04/14/2014 CHEM 14 3673907 POTASSIUM 4.1 MMOL/L 04/14/2014 CHEM 14 8913221 PROT TOT 6.6 GM/DL 04/14/2014 CHEM 14 7137665 GLUCOSE 104 MG/DL 04/14/2014 CHEM 14 2138831 BICARB 34 MMOL/L 04/14/2014 CHEM 14 6125194 ANION GAP 5 MEQ/L 04/14/2014 A1C HPLC 8151537 A1C HPLC 28132-0 5.0 % 04/14/2014 TSH 3400613 TSH 2.140 uIU/ML 04/14/2014 FREE T4 9900344 FREE T4 1.56 NG/DL 04/14/2014 GFR CALC 7165063 GFR AA >60 ML/MIN 04/14/2014 GFR CALC 4389552 GFR NON -AA >60 ML/MIN 04/14/2014 CBC 4713611 WBC 12.8 10e9/L 04/14/2014 CBC 6306218 RBC 4.44 10e12/L 04/14/2014 CBC 8845003 HGB 13.2 g/dL 04/14/2014 CBC 1749699 HCT DET 41.4 % 04/14/2014 CBC 9806527 MCV 93.2 fL 04/14/2014 CBC 2710332 MCH 29.7 pg 04/14/2014 CBC 1810110 MCHC 31.9 g/dL 04/14/2014 CBC 8622470 PLT 383 10e9/L 04/14/2014 CBC 9616318 MPV 10.1 fL 04/14/2014 CBC 0742490 NNEKA % 65.5 % 04/14/2014 CBC 7768753 LY % 23.0 % 04/14/2014 CBC 2543722 MON % 9.9 % 04/14/2014 CBC 5690970 EOS % 1.3 % 04/14/2014 CBC 6297574 BASO % 0.3 % 04/14/2014 CBC 7559191 RDW 13.7 % 04/14/2014 CBC 0516724 ABS NNEKA 8.38 10e9/L 04/14/2014 CBC 6436791 ABS LYMPH 2.94 10e9/L 04/14/2014 CBC 6820562 ABS MONO 1.27 10e9/L 04/14/2014 CBC 8790911 ABS EOS 0.17 10e9/L 04/14/2014 CBC 3205450 ABS BASO 0.04 10e9/L 04/14/2014 CBC 7023438 RDW-SD 45.9 fL 04/14/2014 A1C HPLC 8401794 A1C HPLC 14285-2 4.9 % 11/13/2013 CHEM 14 7119342 AST 15 U/L 11/12/2013 CHEM 14 9135281 ALT 14 IU/L 11/12/2013 CHEM 14 8487000 BUN 14 MG/DL 11/12/2013 CHEM 14 4458071 ALBUMIN 4.3 GM/DL 11/12/2013 CHEM 14 3118911 CHLORIDE 101 MMOL/L 11/12/2013 CHEM 14 3161558 BILI TOT 0.9 MG/DL 11/12/2013 CHEM 14 2508305 ALK PHOS 67 U/L 11/12/2013 CHEM 14 3030849 SODIUM 139 MMOL/L 11/12/2013 CHEM 14 5453075 CREATINI NE 0.67 MG/DL 11/12/2013 CHEM 14 0605335 CALCIUM 9.5 MG/DL 11/12/2013 CHEM 14 0144649 POTASSIUM 4.1 MMOL/L 11/12/2013 CHEM 14 0453254 PROT TOT 6.5 GM/DL 11/12/2013 CHEM 14 2319702 GLUCOSE 102 MG/DL 11/12/2013 CHEM 14 9343276 BICARB 30 MMOL/L 11/12/2013 CHEM 14 6457813 ANION GAP 8 MEQ/L 11/12/2013 GFR CALC 4939471 GFR AA >60 ML/MIN 11/12/2013 GFR CALC 5392425 GFR NON -AA >60 ML/MIN 11/12/2013 TSH 3809604 TSH 2.445 uIU/ML 11/12/2013 FREE T4 5928947 FREE T4 1.09 NG/DL 11/12/2013 CBC 8392586 WBC 7.6 10e9/L 11/12/2013 CBC 2412510 RBC 4.42 10e12/L 11/12/2013 CBC 9267452 HGB 13.1 g/dL 11/12/2013 CBC 9482693 HCT DET 41.2 % 11/12/2013 CBC 1175996 MCV 93.2 fL 11/12/2013 CBC 8050638 MCH 29.6 pg 11/12/2013 CBC 2004149 MCHC 31.8 g/dL 11/12/2013 CBC 2496172 PLT 314 10e9/L 11/12/2013 CBC 4962890 MPV 10.4 fL 11/12/2013 CBC 8912184 NNEKA % 59.8 % 11/12/2013 CBC 2509092 LY % 28.1 % 11/12/2013 CBC 5370565 MON % 9.5 % 11/12/2013 CBC 2307112 EOS % 1.8 % 11/12/2013 CBC 1353134 BASO % 0.8 % 11/12/2013 CBC 2707062 RDW 13.8 % 11/12/2013 CBC 7998212 ABS NNEKA 4.54 10e9/L 11/12/2013 CBC 1847162 ABS LYMPH 2.14 10e9/L 11/12/2013 CBC 0582315 ABS MONO 0.72 10e9/L 11/12/2013 CBC 8817153 ABS EOS 0.14 10e9/L 11/12/2013 CBC 0850834 ABS BASO 0.06 10e9/L 11/12/2013 CBC 7219946 RDW-SD 46.0 fL 11/12/2013 LIPID GRP HDL TE ST 66 MG/DL 11/12/2013 LIPID GRP TRIG 130 MG/DL 11/12/2013 LIPID GRP 1870975 TEST L DL 108 MG/DL 11/12/2013 LIPID GRP 5229386 CHOL 200 MG/DL 11/12/2013 LIPID GRP 6975531 RCHOL/ HDL 3.03 RATIO 11/12/2013 HS ENE ZOS 3970116 HS VA R ZOS IMMUNE 04/04/2013 A1C 1638821 A1C HPLC 72251-7 5.2 % 04/03/2013 GFR CALC 5495098 GFR AA >60 ML/MIN 03/31/2013 GFR CALC 8695272 GFR NON -AA >60 ML/MIN 03/31/2013 TSH 6647054 TSH 2.689 uIU/ML 03/31/2013 LIPID GRP HDL TE ST 63 MG/DL 03/31/2013 LIPID GRP TRIG 157 MG/DL 03/31/2013 LIPID GRP TEST L DL 98 MG/DL 03/31/2013 LIPID GRP CHOL 192 MG/DL 03/31/2013 LIPID GRP RCHOL/ HDL 3.05 RATIO 03/31/2013 FREE T4 3865940 FREE T4 1.19 NG/DL 03/31/2013 CHEM 14 7300422 AST 16 U/L 03/31/2013 CHEM 14 4444300 ALT 12 IU/L 03/31/2013 CHEM 14 6771955 BUN 17 MG/DL 03/31/2013 CHEM 14 3526956 ALBUMIN 4.5 GM/DL 03/31/2013 CHEM 14 3864697 CHLORIDE 98 MMOL/L 03/31/2013 CHEM 14 8274430 BILI TOT 0.7 MG/DL 03/31/2013 CHEM 14 6481914 ALK PHOS 53 U/L 03/31/2013 CHEM 14 6731552 SODIUM 137 MMOL/L 03/31/2013 CHEM 14 9102261 CREATINI NE 0.66 MG/DL 03/31/2013 CHEM 14 5899325 CALCIUM 9.6 MG/DL 03/31/2013 CHEM 14 8793165 POTASSIUM 4.2 MMOL/L 03/31/2013 CHEM 14 7548279 PROT TOT 6.7 GM/DL 03/31/2013 CHEM 14 8783109 GLUCOSE 101 MG/DL 03/31/2013 CHEM 14 6782386 BICARB 33 MMOL/L 03/31/2013 CHEM 14 1251302 ANION GAP 6 MEQ/L 03/31/2013 CBC 3836589 WBC 7.5 10e9/L 03/31/2013 CBC 6735772 RBC 4.39 10e12/L 03/31/2013 CBC 6494739 HGB 13.0 g/dL 03/31/2013 CBC 6230415 HCT DET 40.2 % 03/31/2013 CBC 3953212 MCV 91.6 fL 03/31/2013 CBC 9445644 MCH 29.6 pg 03/31/2013 CBC 4880715 MCHC 32.3 g/dL 03/31/2013 CBC 3203690 PLT 305 10e9/L 03/31/2013 CBC 6889328 MPV 10.4 fL 03/31/2013 CBC 0905531 NNEKA % 56.8 % 03/31/2013 CBC 3246261 LY % 30.3 % 03/31/2013 CBC 3266261 MON % 9.8 % 03/31/2013 CBC 0181408 EOS % 2.3 % 03/31/2013 CBC 9914124 BASO % 0.8 % 03/31/2013 CBC 6568697 RDW 13.2 % 03/31/2013 CBC 5572533 ABS NNEKA 4.26 10e9/L 03/31/2013 CBC 9460856 ABS LYMPH 2.27 10e9/L 03/31/2013 CBC 2301409 ABS MONO 0.74 10e9/L 03/31/2013 CBC 7755610 ABS EOS 0.17 10e9/L 03/31/2013 CBC 6709153 ABS BASO 0.06 10e9/L 03/31/2013 CBC 0380713 RDW-SD 43.2 fL 03/31/2013 LIPID GRP HDL TE ST 49 MG/DL 09/11/2012 LIPID GRP TRIG 134 MG/DL 09/11/2012 LIPID GRP TEST L DL 81 MG/DL 09/11/2012 LIPID GRP CHOL 157 MG/DL 09/11/2012 LIPID GRP RCHOL/ HDL 3.20 RATIO 09/11/2012 TSH 5637378 TSH 2.118 uIU/ML 09/11/2012 CBC 8586142 WBC 7.5 10e9/L 09/11/2012 CBC 3527284 RBC 3.99 10e12/L 09/11/2012 CBC 1660979 HGB 11.7 g/dL 09/11/2012 CBC 3440720 HCT DET 37.7 % 09/11/2012 CBC 9087177 MCV 94.5 fL 09/11/2012 CBC 6392822 MCH 29.3 pg 09/11/2012 CBC 9504378 MCHC 31.0 g/dL 09/11/2012 CBC 6776576 PLT 384 10e9/L 09/11/2012 CBC 1245168 MPV 11.0 fL 09/11/2012 CBC 1795586 NNEKA % 51.7 % 09/11/2012 CBC 9849610 LY % 35.2 % 09/11/2012 CBC 8067379 MON % 10.4 % 09/11/2012 CBC 0335903 EOS % 2.3 % 09/11/2012 CBC 3206754 BASO % 0.4 % 09/11/2012 CBC 6522573 RDW 14.2 % 09/11/2012 CBC 3760813 ABS NNEKA 3.88 10e9/L 09/11/2012 CBC 6566379 ABS LYMPH 2.64 10e9/L 09/11/2012 CBC 9412131 ABS MONO 0.78 10e9/L 09/11/2012 CBC 3893972 ABS EOS 0.17 10e9/L 09/11/2012 CBC 9416219 ABS BASO 0.03 10e9/L 09/11/2012 CBC 6231046 RDW-SD 47.1 fL 09/11/2012 CHEM 14 8776632 AST 16 U/L 09/11/2012 CHEM 14 7869674 ALT 15 IU/L 09/11/2012 CHEM 14 0253810 BUN 11 MG/DL 09/11/2012 CHEM 14 8766067 ALBUMIN 4.2 GM/DL 09/11/2012 CHEM 14 0026729 CHLORIDE 101 MMOL/L 09/11/2012 CHEM 14 1360496 BILI TOT 0.8 MG/DL 09/11/2012 CHEM 14 2495373 ALK PHOS 57 U/L 09/11/2012 CHEM 14 6666238 SODIUM 141 MMOL/L 09/11/2012 CHEM 14 7275408 CREATINI NE 0.62 MG/DL 09/11/2012 CHEM 14 7364011 CALCIUM 9.5 MG/DL 09/11/2012 CHEM 14 0380317 POTASSIUM 4.7 MMOL/L 09/11/2012 CHEM 14 0693268 PROT TOT 6.6 GM/DL 09/11/2012 CHEM 14 6071341 GLUCOSE 90 MG/DL 09/11/2012 CHEM 14 3178308 BICARB 32 MMOL/L 09/11/2012 CHEM 14 2976581 ANION GAP 8 MEQ/L 09/11/2012 A1C HPLC 9495428 A1C HPLC 28628-8 4.5 % 09/11/2012 GFR CALC 5065872 GFR AA >60 ML/MIN 09/11/2012 GFR CALC 7561611 GFR NON -AA >60 ML/MIN 09/11/2012 FREE T4 1329701 FREE T4 1.30 NG/DL 09/11/2012 BMP 6154878 GLUCOSE 93 MG/DL 04/16/2012 BMP 7006592 CREATININE 0.64 MG/DL 04/16/2012 BMP BUN 12 MG/DL 04/16/2012 BMP SODIUM 139 MMOL/L 04/16/2012 BMP 9447142 POTASSIUM 4.1 MMOL/L 04/16/2012 BMP CHLORIDE 99 MMOL/L 04/16/2012 BMP BICARB 32 MMOL/L 04/16/2012 BMP ANION GAP 8 MEQ/L 04/16/2012 BMP CALCIUM 9.8 MG/DL 04/16/2012 CBC 7723446 WBC 8.5 10e9/L 04/16/2012 CBC 9432726 RBC 3.98 10e12/L 04/16/2012 CBC 2814119 HGB 11.5 g/dL 04/16/2012 CBC 2660554 HCT DET 36.7 % 04/16/2012 CBC 5052417 MCV 92.2 fL 04/16/2012 CBC 4338820 MCH 28.9 pg 04/16/2012 CBC 3386269 MCHC 31.3 g/dL 04/16/2012 CBC 5985802 PLT 321 10e9/L 04/16/2012 CBC 0900610 MPV 10.2 fL 04/16/2012 CBC 5671297 NNEKA % 64.3 % 04/16/2012 CBC 9288055 LY % 24.3 % 04/16/2012 CBC 3688298 MON % 9.0 % 04/16/2012 CBC 8183002 EOS % 1.9 % 04/16/2012 CBC 7140739 BASO % 0.5 % 04/16/2012 CBC 8126502 RDW 13.7 % 04/16/2012 CBC 6769399 ABS NNEKA 5.47 10e9/L 04/16/2012 CBC 4763634 ABS LYMPH 2.07 10e9/L 04/16/2012 CBC 1763129 ABS MONO 0.77 10e9/L 04/16/2012 CBC 5546747 ABS EOS 0.16 10e9/L 04/16/2012 CBC 8822473 ABS BASO 0.04 10e9/L 04/16/2012 CBC 9094975 RDW-SD 44.6 fL 04/16/2012 GFR CALC 4836477 GFR AA >60 ML/MIN 04/16/2012 GFR CALC 3515435 GFR NON -AA >60 ML/MIN 04/16/2012 URINALYSIS NONAUTO W/O SCOPE 67459 Specific [place] 1.015 DateTime(Free Text in Aprima) URINALYSIS NONAUTO W/O SCOPE 03188 PH 6.0 DateTime(Free Jim t in Apr) URINALYSIS NONAUTO W/O SCOPE 91708 GLUCOSE neg DateTime(Free Jim t in Apr) URINALYSIS NONAUTO W/O SCOPE 95659 Protein neg DateTime(Free Jim t in Aprima) URINALYSIS NONAUTO W/O SCOPE 93409 Blood 1+ DateTime(Free Text in Aprima) URINALYSIS NONAUTO W/O SCOPE 64655 Bilirubin neg DateTime(Free Jim t in Aprima) URINALYSIS NONAUTO W/O SCOPE 63202 Ketones neg DateTime(Free Jim t in Aprima) URINALYSIS NONAUTO W/O SCOPE 52682 Urobilinogen neg DateTime(Free Text in Aprima) URINALYSIS NONAUTO W/O SCOPE 53227 Nitrite positive DateTime(Madi e Text in ) URINALYSIS NONAUTO W/O SCOPE 29639 Leukocytes 1+ DateTime(Free Text in Apr) UA 01744 Specific [place] 1.015 DateTime(Free Text in Apr ) UA 99168 PH 5 DateTime(Free Text in Apr ) UA 40182 GLUCOSE neg DateTime(Free Text in Aprima ) UA 07640 Protein neg DateTime(Free Text in Aprima ) UA 20642 Blood neg DateTime(Free Text in Apr ) UA 42094 Bilirubin neg DateTime(Free Text in Apr ) UA 26456 Ketones neg DateTime(Free Text in Aprima ) UA 97656 Urobilinogen neg DateTime(Free Text in Aprima ) UA 47901 Nitrite neg DateTime(Free Text in Apr ) UA 13002 Leukocytes neg DateTime(Free Text in Apr ) URINALYSIS NONAUTO W/O SCOPE 58179 Specific [place] 1.010 DateTime(Free Text in Apr) URINALYSIS NONAUTO W/O SCOPE 39224 PH 5.0 DateTime(Free Jim t in Apr) URINALYSIS NONAUTO W/O SCOPE 65863 GLUCOSE NEG DateTime(Free Jim t in Apr) URINALYSIS NONAUTO W/O SCOPE 65616 Protein NEG DateTime(Free Jim t in Aprima) URINALYSIS NONAUTO W/O SCOPE 64835 Blood NEG DateTime(Free Jim t in Aprima) URINALYSIS NONAUTO W/O SCOPE 15292 Bilirubin NEG DateTime(Free Jim t in Aprima) URINALYSIS NONAUTO W/O SCOPE 60985 Ketones NEG DateTime(Free Jim t in Aprima) URINALYSIS NONAUTO W/O SCOPE 11006 Urobilinogen NEG DateTime(Free Text in Aprima) URINALYSIS NONAUTO W/O SCOPE 88898 Nitrite NEG DateTime(Free Jim t in Aprima) URINALYSIS NONAUTO W/O SCOPE 26834 Leukocytes ++ DateTime(Free Text in [employer]) URINALYSIS NONAUTO W/O SCOPE 73040 Specific [place] 1.010 DateTime(Free Text in [employer]) URINALYSIS NONAUTO W/O SCOPE 09085 PH 6.0 DateTime(Free Jim t in [employer]) URINALYSIS NONAUTO W/O SCOPE 26797 GLUCOSE NEG DateTime(Free Jim t in [employer]) URINALYSIS NONAUTO W/O SCOPE 26366 Protein NEG DateTime(Free Jim t in [employer]) URINALYSIS NONAUTO W/O SCOPE 26920 Blood NEG DateTime(Free Jim t in [employer]) URINALYSIS NONAUTO W/O SCOPE 43403 Bilirubin NEG DateTime(Free Jim t in [employer]) URINALYSIS NONAUTO W/O SCOPE 19862 Ketones NEG DateTime(Free Jim t in [employer]) URINALYSIS NONAUTO W/O SCOPE 12509 Urobilinogen NEG DateTime(Free Text in [employer]) URINALYSIS NONAUTO W/O SCOPE 17213 Nitrite NEG DateTime(Free Jim t in [employer]) URINALYSIS NONAUTO W/O SCOPE 58044 Leukocytes NEG DateTime(Free Text in [employer]) URINALYSIS NONAUTO W/O SCOPE 77299 Specific [place] 1.010 DateTime(Free Text in [employer]) URINALYSIS NONAUTO W/O SCOPE 72165 PH 5 DateTime(Free Text in [employer]) URINALYSIS NONAUTO W/O SCOPE 51789 GLUCOSE neg DateTime(Free Jim t in [employer]) URINALYSIS NONAUTO W/O SCOPE 82225 Protein neg DateTime(Free Jim t in [employer]) URINALYSIS NONAUTO W/O SCOPE 70497 Blood neg DateTime(Free Jim t in [employer]) URINALYSIS NONAUTO W/O SCOPE 62676 Bilirubin neg DateTime(Free Jim t in [employer]) URINALYSIS NONAUTO W/O SCOPE 32936 Ketones neg DateTime(Free Jim t in [employer]) URINALYSIS NONAUTO W/O SCOPE 00146 Urobilinogen neg DateTime(Free Text in [employer]) URINALYSIS NONAUTO W/O SCOPE 20401 Nitrite neg DateTime(Free Jim t in [employer]) URINALYSIS NONAUTO W/O SCOPE 80829 Leukocytes 1+ DateTime(Free Text in [employer]) URINALYSIS NONAUTO W/O SCOPE 14381 Specific [place] 1.015 DateTime(Free Text in [employer]) URINALYSIS NONAUTO W/O SCOPE 07800 PH 5 DateTime(Free Text in [employer]) URINALYSIS NONAUTO W/O SCOPE 84384 GLUCOSE neg DateTime(Free Jim t in [employer]) URINALYSIS NONAUTO W/O SCOPE 74983 Protein neg DateTime(Free Jim t in [employer]) URINALYSIS NONAUTO W/O SCOPE 23871 Blood neg DateTime(Free Jim t in [employer]) URINALYSIS NONAUTO W/O SCOPE 98851 Bilirubin neg DateTime(Free Jim t in [employer]) URINALYSIS NONAUTO W/O SCOPE 76402 Ketones neg DateTime(Free Jim t in [employer]) URINALYSIS NONAUTO W/O SCOPE 86298 Urobilinogen neg DateTime(Free Text in [employer]) URINALYSIS NONAUTO W/O SCOPE 89591 Nitrite neg DateTime(Free Jim t in [employer]) URINALYSIS NONAUTO W/O SCOPE 03210 Leukocytes neg DateTime(Free Text in [employer]) URINALYSIS NONAUTO W/O SCOPE 54589 Specific [place] 1.015 DateTime(Free Text in [employer]) URINALYSIS NONAUTO W/O SCOPE 95052 PH 7 DateTime(Free Text in [employer]) URINALYSIS NONAUTO W/O SCOPE 29141 GLUCOSE DateTime(Free Text i n [employer]) URINALYSIS NONAUTO W/O SCOPE 48751 Protein DateTime(Free Text i n [employer]) URINALYSIS NONAUTO W/O SCOPE 28879 Blood DateTime(Free Text i n [employer]) URINALYSIS NONAUTO W/O SCOPE 78068 Bilirubin DateTime(Free Text i n [employer]) URINALYSIS NONAUTO W/O SCOPE 02946 Ketones DateTime(Free Text i n [employer]) URINALYSIS NONAUTO W/O SCOPE 47872 Urobilinogen DateTime(Free Text in ) URINALYSIS NONAUTO W/O SCOPE 84086 Nitrite DateTime(Free Text i n ) URINALYSIS NONAUTO W/O SCOPE 65793 Leukocytes DateTime(Fr ee Text in ) UA 86584 Specific [place] 6 DateTime(Free Text in ) UA 01881 PH 1.020 DateTime(Free Text in ) UA 39653 GLUCOSE N DateTime(Free Text in ) UA 55897 Protein N DateTime(Free Text in ) UA 26072 Blood N DateTime(Free Text in ) UA 46943 Bilirubin N DateTime(Free Text in ) UA 91330 Ketones N DateTime(Free Text in ) UA 81226 Urobilinogen N DateTime(Free Text in ) UA 54452 Nitrite POSITIVE DateTime(Free Text in ma) UA 84786 Leukocytes SMALL DateTime(Free Text in ) Review [...] nourished 04/19/2011 None Procedures Procedure Codes Date THER/PROPH/DIAG INJ SC/IM CPT-4: [id number] 01/04/2017 TRIAMCINOLONE ACET I [place] NOS CPT-4: [id number] 01/04/2017 TRIAMCINOLONE ACET I [place] NOS CPT-4: [id number] 08/23/2016 THER/PROPH/DIAG INJ SC/IM CPT-4: [id number] 08/23/2016 ROUTINE VENIPUNCTURE CPT-4: [id number] 08/28/2014 ADMIN INFLUENZA VIRU S VAC Assigned to/Yancy Howell CPT-4: [id number] 05/20/2014 FLU VAC NO PRSV 4 VA L 3 YRS+ CPT-4: 05098Wlsrtbn 05/20/2014 URINALYSIS NONAUTO W /O SCOPE CPT-4: 76471Iqdbvnz 05/07/2014 ROCEPHIN, PER 250 MG CPT-4: K0560Qhhomnc 05/07/2014 ROUTINE VENIPUNCTURE CPT-4: 75383Mjdttdm 04/14/2014 DESTRUCT PREMALG LES ION CPT-4: 51612Skxjkvq 01/27/2014 DESTRUCT PREMALG LES 2-14 CPT-4: 32666Cwahyzj 01/27/2014 ROCEPHIN, PER 250 MG CPT-4: A4132Dabjegh 12/26/2013 TRIAMCINOLONE ACET I [place] NOS CPT-4: W0574Lpvgzpu 12/26/2013 TRIAMCINOLONE ACET I [place] NOS CPT-4: Z0978Xywpovo 11/12/2013 ROUTINE VENIPUNCTURE CPT-4: 62589Tiimfbk 11/12/2013 ROCEPHIN, PER 250 MG CPT-4: X3441Kvvtvaz 10/09/2013 ROUTINE VENIPUNCTURE CPT-4: 25846Tfxvwvx 03/31/2013 URINALYSIS NONAUTO W /O SCOPE CPT-4: 27134Ejpvvfz 03/21/2013 TRIAMCINOLONE ACET I [place] NOS CPT-4: W6850Vgqgiye 11/21/2012 URINALYSIS NONAUTO W /O SCOPE CPT-4: 03188Egoothz 09/30/2012 URINALYSIS NONAUTO W /O SCOPE CPT-4: 17103Mvrppjp 09/11/2012 ROUTINE VENIPUNCTURE CPT-4: 49805Rptztuc 09/11/2012 PRESCRIP TRANSMIT A ERX SY CPT-4: X8728Annbatj 08/05/2012 ADMIN INFLUENZA VIRU S VAC CPT-4: J2267Hhfylvr 05/03/2012 FLULAVAL VACC, 3 YRS & >, IM CPT-4: M9223Mvutqgw 05/03/2012 EXC TR-EXT B9+ANA 0 .6-1 CM CPT-4: 07397Oguyhzs 04/23/2012 ROUTINE VENIPUNCTURE CPT-4: 75915Rdfkpfz 04/16/2012 ROUTINE VENIPUNCTURE CPT-4: 98400Wclgbih 12/21/2011 PRESCRIP TRANSMIT A ERX SY CPT-4: Z6838Lcbjsvv 12/04/2011 URINALYSIS NONAUTO W /O SCOPE CPT-4: 13436Detacdg 12/01/2011 URINALYSIS NONAUTO W /O SCOPE CPT-4: 35818Bvfklzr 11/20/2011 PRESCRIP TRANSMIT A ERX SY CPT-4: I8973Vmsxxfi 09/20/2011 URINALYSIS NONAUTO W /O SCOPE CPT-4: 68403Gdwintn 09/06/2011 ROCEPHIN, PER 250 MG CPT-4: Q0406Iozasox 08/30/2011 THER/PROPH/DIAG INJ SC/IM CPT-4: 29894Cbctnuu 08/30/2011 ROUTINE VENIPUNCTURE CPT-4: 21305Rhxpjqf 08/30/2011 PRESCRIP TRANSMIT A ERX SY CPT-4: B4181Enliefe 08/30/2011 ROCEPHIN, PER 250 MG CPT-4: X1746Krpfdlx 08/23/2011 THER/PROPH/DIAG INJ SC/IM CPT-4: 70483Hbkpbdn 08/23/2011 URINALYSIS NONAUTO W /O SCOPE CPT-4: 65994Nbbonzm 08/23/2011 PRESCRIP TRANSMIT A ERX SY CPT-4: Z2074Pjfmsoj 08/23/2011 ROUTINE VENIPUNCTURE CPT-4: 12074Ansadud 05/04/2011 PRESCRIP TRANSMIT A ERX SY CPT-4: F5053Aakxwxr 05/04/2011 TRIAMCINOLONE ACET I [place] NOS CPT-4: U0239Qvmnlqm 04/19/2011 THER/PROPH/DIAG INJ SC/IM CPT-4: 30630Cssxsfv 04/19/2011 PRESCRIP TRANSMIT A ERX SY CPT-4: E6773Siaxtar 04/19/2011 Vital Signs Date Vital 02/15/2017 Blood Pressure 1: 138/70 Code: 8480-6 Heart Rate 1: 78 bpm SpO2: 91% 02/05/2017 Blood Pressure 1: 146/74 Code: 8480-6 Heart Rate 1: 52 bpm SpO2: 95% Temperature: 36.5 (C ) / 97.7 (F) 02/02/2017 Blood Pressure 1: 152/72 Code: 8480-6 BMI: 39.7 Code: 02301-4 Heart Rate 1: 58 bpm Height: 5'3" SpO2: 95% Weight: 224 lbs 01/15/2017 Blood Pressure 1: 148/70 Code: 8480-6 Heart Rate 1: 65 bpm Height: SpO2: 96% Weight: 01/04/2017 Blood Pressure 1: 132/60 Code: 8480-6 BMI: 39.9 Code: 95559-2 Heart Rate 1: 57 bpm Height: 5'3" SpO2: 95% Weight: 225 lbs 09/07/2016 Blood Pressure 1: 144/70 Code: 8480-6 BMI: 37.6 Code: 73581-4 Heart Rate 1: 50 bpm Height: 5'3" SpO2: 96% Weight: 212 lbs 07/06/2016 Blood Pressure 1: 134/64 Code: 8480-6 BMI: 38.6 Code: 15613-0 Heart Rate 1: 60 bpm Height: 5'3" SpO2: 94% Weight: 218 lbs 06/16/2016 Blood Pressure 1: 140/80 Code: 8480-6 06/08/2016 Blood Pressure 1: 150/76 Code: 8480-6 BMI: 38.4 Code: 61642-6 Heart Rate 1: 60 bpm Height: 5'3" SpO2: 96% Weight: 217 lbs 04/17/2016 Blood Pressure 1: 150/70 Code: 8480-6 Heart Rate 1: 63 bpm SpO2: 93% 04/06/2016 Blood Pressure 1: 154/52 Code: 8480-6 BMI: 38.6 Code: 63857-9 Heart Rate 1: 54 bpm Height: 5'3" SpO2: 95% Weight: 218 lbs 03/10/2016 Blood Pressure 1: 160/64 Code: 8480-6 03/09/2016 Blood Pressure 1: 152/78 Code: 8480-6 BMI: 38.8 Code: 55709-0 Heart Rate 1: 63 bpm Height: 5'3" SpO2: 92% Weight: 219 lbs 01/18/2016 Blood Pressure 1: 144/72 Code: 8480-6 BMI: 39.0 Code: 65643-3 Heart Rate 1: 68 bpm Height: 5'3" SpO2: 93% Weight: 220 lbs 09/09/2015 Blood Pressure 1: 126/68 Code: 8480-6 BMI: 39.0 Code: 17256-6 Height: 5'3" SpO2: 94% Weight: 220 lbs 12/25/2014 Blood Pressure 1: 138/68 Code: 8480-6 BMI: 37.7 Code: 44053-8 Heart Rate 1: 68 bpm Height: 5'3" SpO2: 97% Weight: 213 lbs 10/13/2014 Blood Pressure 1: 118/68 Code: 8480-6 BMI: 39.3 Code: 23029-4 Heart Rate 1: 54 bpm Height: 5'3" SpO2: 98% Weight: 222 lbs 08/28/2014 Blood Pressure 1: 140/62 Code: 8480-6 Heart Rate 1: 60 bpm Weight: 212 lbs 08/07/2014 Blood Pressure 1: 138/62 Code: 8480-6 05/20/2014 [place] rature: 35.5 (C) / 95.9 (F) 05/07/2014 Blood Pressure 1: 148/70 Code: 8480-6 BMI: 38.6 Code: 33662-3 Heart Rate 1: 61 bpm Height: 5'3" SpO2: 96% Weight: 218 lbs 04/16/2014 Blood Pressure 1: 142/68 Code: 8480-6 BMI: 37.6 Code: 24151-5 Heart Rate 1: 58 bpm Height: 5'3" Weight: 212 lbs 01/27/2014 Blood Pressure 1: 122/62 Code: 8480-6 Blood Pressure 2: 118/60 Code: 8480-6 Heart Rate 1: 60 bpm Weight: 210 lbs 01/21/2014 Blood Pressure 1: 130/62 Code: 8480-6 BMI: 37.2 Code: 85807-2 Heart Rate 1: 68 bpm Height: 5'3" SpO2: 97% Weight: 210 lbs 01/07/2014 Blood Pressure 1: 108/58 Code: 8480-6 BMI: 36.8 Code: 18300-8 Heart Rate 1: 44 bpm Height: 5'3" Weight: 208 lbs 12/26/2013 Blood Pressure 1: 122/60 Code: 8480-6 BMI: 37.6 Code: 26406-0 Heart Rate 1: 56 bpm Height: 5'3" [...] 1: 136/72 Code: 8480-6 BMI: 36.7 Code: 80546-6 Heart Rate 1: 76 bpm Height: 5'3" Weight: 207 lbs 01/06/2013 Blood Pressure 1: 130/70 Code: 8480-6 BMI: 36.5 Code: 84837-3 Heart Rate 1: 72 bpm Height: 5'3" [...] 1: 138/66 Code: 8480-6 BMI: 38.3 Code: 55175-1 Heart Rate 1: 60 bpm Height: 5'3" [...] 1: 130/60 Code: 8480-6 BMI: 38.3 Code: 32130-7 Heart Rate 1: 60 bpm Height: 5'3" Weight: 216 lbs 12/25/2011 Blood Pressure 1: 142/76 Code: 8480-6 Heart Rate 1: 60 bpm Respiratory Rate: 20 bpm Weight: 213 lbs 12/04/2011 Blood Pressure 1: 142/64 Code: 8480-6 BMI: 38.6 Code: 65354-0 Heart Rate 1: 59 bpm Height: 5'3" Respiratory Rate: 20 bpm SpO2: 96% Weight: 218 lbs 09/20/2011 Blood Pressure 1: 166/68 Code: 8480-6 BMI: 36.5 Code: 09010-9 Heart Rate 1: 50 bpm Height: 5'3" [...] 1: 120/60 Code: 8480-6 BMI: 36.8 Code: 87169-8 Heart Rate 1: 64 bpm Height: 5'3" Respiratory Rate: 16 bpm Weight: 211 lbs 05/04/2011 Blood Pressure 1: 142/58 Code: 8480-6 BMI: 38.0 Code: 40122-6 Heart Rate 1: 56 bpm Height: 5'2" Respiratory Rate: 12 bpm Weight: 211 lbs 04/19/2011 Blood Pressure 1: 138/51 Code: 8480-6 BMI: 35.5 Code: 82643-1 Heart Rate 1: 66 bpm Height: 5'4" [...] congestion 02/05/2017 None cough Location in the [facility] 02/02/2017 None cough Location in the roat [...] roat 01/15/2017 None cough Location in the [facility] 01/15/2017 None cough Quality acute 01/15/2017 None [...] Alleviating Factors medication 06/08/2016 None hypothyroid 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 06/08/2016 None hypothyroid Onset and Resolution [...] Alleviating Factors medication 04/06/2016 None hypothyroid 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 04/06/2016 None hypothyroid Onset and Resolution [...] Alleviating Factors medication 03/09/2016 None hypothyroid 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 03/09/2016 None hypothyroid Onset and Resolution [...] Alleviating Factors medication 01/18/2016 None hypothyroid 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 01/18/2016 None hypothyroid Onset and Resolution [...] Left hurts but not constantly hypothyroid 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 09/09/2015 None hypothyroid Onset and Resolution [...] Findings edema 07/15/2012 None skin lesion 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 05/27/2012 None skin lesion Quality pigm [...] Encounters Encounter Performer Loca tion Codes Date ([id number]) Miscellaneou s no charge Diagnosis: Essential (primary) hypertension[ICD10: I10] Concepción Flanagan MD, C CPT-4: 30337 02/15/2017 ([id number]) Miscellaneou s no charge Diagnosis: Cough[ICD10: R05] Diagnosis: Urinary tract infection, site not specified[ICD10: N39.0] Chaparrita Flanagan MD, [facility] CPT-4: 89660 02/05/2017 ([id number]) 09087 EST. P ATIENT, LEVEL III Diagnosis: Gastro-esophageal reflux 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[ICD10: K21.9] Diagnosis: Urinary tract infection, site not specified[ICD10: N39.0] Diagnosis: Localized edema[ICD10: R60.0] Chaparrita Flanagan MD, [facility] CPT- 4: 35578 02/02/2017 ([id number]) 23219 EST. P ATIENT, LEVEL III Diagnosis: Acute recurrent maxillary sinusitis[ICD10: J01.01] Diagnosis: Cough[ICD10: R05] Chaparrita Flanagan MD, [facility] CPT-4: 64128 01/15/2017 ([id number]) 06824 EST. P ATIENT, LEVEL IV Diagnosis: Essential (primary) hypertension[ICD10: I10] Diagnosis: Mixed hyperlipidemia[ICD10: E78.2] Diagnosis: Pain in left knee[ICD10: M25.562] Diagnosis: Allergic rhinitis due to pollen[ICD10: J30.1] Concepción Flanagan MD, C CPT-4: 73260 01/04/2017 ([id number]) 50128 EST. P ATIENT, LEVEL IV Diagnosis: Essential (primary) hypertension[ICD10: I10] Diagnosis: Major depressive disorder, recurrent, moderate[ICD10: F33.1] Concepción Flanagan MD, [facility] CPT-4: 12745 09/07/2016 ([id number]) 57695 EST. P ATIENT, LEVEL III Diagnosis: Essential (primary) hypertension[ICD10: I10] Concepción Flanagan MD, C CPT-4: 51014 07/06/2016 ([id number]) Miscellaneou s no charge Diagnosis: Essential (primary) hypertension[ICD10: I10] Hayley Flanagan MD, [facility] CPT-4: 55423 06/16/2016 ([id number]) 29216 EST. P ATIENT, LEVEL III Diagnosis: Essential (primary) hypertension[ICD10: I10] Diagnosis: Generalized anxiety disorder[ICD10: F41.1] Concepción Flanagan MD, [facility] CPT-4: 11950 06/08/2016 ([id number]) Miscellaneou s no charge Diagnosis: Essential (primary) hypertension[ICD10: I10] Hayley Flanagan MD, [facility] CPT-4: 57953 04/17/2016 ([id number]) 29607 EST. P ATIENT, LEVEL IV Diagnosis: Essential (primary) hypertension[ICD10: I10] Diagnosis: Localized edema[ICD10: R60.0] Concepción Flanagan MD, [facility] CPT-4: 99806 04/06/2016 ([id number]) Miscellaneou s no charge Diagnosis: Essential (primary) hypertension[ICD10: I10] Chaparrita Flanagan MD, [facility] CPT-4: 81067 03/10/2016 ([id number]) 74705 EST. P ATIENT, LEVEL IV Diagnosis: Essential (primary) hypertension[ICD10: I10] Diagnosis: Mixed hyperlipidemia[ICD10: E78.2] Diagnosis: Hypothyroidism, unspecified[ICD10: E03.9] Diagnosis: Generalized anxiety disorder[ICD10: F41.1] Chaparrita Flanagan MD, [facility] CPT-4: 48639 03/09/2016 ([id number]) 65873 EST. 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 P ATIENT, LEVEL IV Diagnosis: ESSENTIAL HYPERTENSION[ICD9: 401.9] Diagnosis: Sleep apnea[ICD9: 780.57] Diagnosis: ANEMIA[ICD9: 285.9] Concepción Flanagan MD, [facility] CPT-4: 13505 12/25/2014 ([id number]) 72074 EST. P ATIENT, LEVEL III Diagnosis: ESSENTIAL HYPERTENSION[ICD9: 401.9] Concepción Flanagan MD, [facility] CPT- 4: 13843 10/13/2014 ([id number]) 71964 EST. P ATIENT, LEVEL IV Diagnosis: HYPOTHYROIDISM[ICD9: 244.9] Diagnosis: HYPERLIPIDEMIA[ICD9: 272.4] Diagnosis: ESSENTIAL HYPERTENSION[ICD9: 401.9] Diagnosis: ENCNTR LONG-RX USE NEC[ICD9: V58.69] Diagnosis: Sleep apnea[ICD9: 780.57] [facility] CPT-4: 78780 08/28/2014 ([id number]) Miscellaneou s no charge Diagnosis: ESSENTIAL HYPERTENSION[ICD9: 401.9] [facility] CPT- 4: 70604 08/07/2014 ([id number]) 60969 EST. P ATIENT, LEVEL IV Diagnosis: EDEMA[ICD9: 782.3] Diagnosis: ACUTE SINUSITIS[ICD9: 461.9] Diagnosis: Urinary tract infection[ICD9: 599.0] Diagnosis: Nocturnal hypoxia[ICD9: 799.02] [facility] CPT- 4: 77236 05/07/2014 ([id number]) 31235 EST. P ATIENT, LEVEL IV Diagnosis: ESSENTIAL HYPERTENSION[ICD9: 401.9] Diagnosis: HYPERLIPIDEMIA[ICD9: 272.4] Diagnosis: JOINT PAIN-L/LEG[ICD9: 719.46] Concepción Flanagan MD, [facility] CPT-4: 51662 04/16/2014 ([id number]) 33282 EST. P ATIENT, LEVEL IV Diagnosis: ESSENTIAL HYPERTENSION[SNOMED: 40130227] Diagnosis: HYPERLIPIDEMIA[ICD9: 272.4] Diagnosis: HYPOTHYROIDISM[ICD9: 244.9] Diagnosis: Nocturnal hypoxaemia[ICD9: 799.02] Concepción Flanagan MD, [facility] CPT- 4: 72838 01/21/2014 ([id number]) 48072 EST. P ATIENT, LEVEL III Diagnosis: ESSENTIAL HYPERTENSION[SNOMED: 48216935] Diagnosis: Bradycardia[ICD9: 427.89] Concepción Flanagan MD, [facility] CPT-4: 92277 01/07/2014 ([id number]) 34870 EST. P ATIENT, LEVEL III Diagnosis: ACUTE URI[ICD9: 465.9] Diagnosis: COUGH[ICD9: 786.2] Chaparrita Flanagan MD, [facility] CPT-4: 20887 12/26/2013 ([id number]) 60043 EST. P ATIENT, LEVEL III Diagnosis: ALLERGIC RHINITIS[ICD9: 477.9] Diagnosis: HYPERLIPIDEMIA[ICD9: 272.4] Diagnosis: ESSENTIAL HYPERTENSION[SNOMED: 89333606] Diagnosis: ENCNTR LONG-RX USE NEC[ICD9: V58.69] Diagnosis: Laboratory exam ordered as part of routine general medical examination[ICD9: V72.62] Diagnosis: HYPOTHYROIDISM[ICD9: 244.9] Chaparrita Flanagan MD, [facility] CPT- 4: 19332 11/12/2013 ([id number]) 84275 EST. P ATIENT, LEVEL III Diagnosis: Acute maxillary sinusitis[ICD9: 461.0] Chaparrita Flanagan MD, [facility] CPT-4: 36373 10/09/2013 ([id number]) 43096 EST. P ATIENT, LEVEL III Diagnosis: ESSENTIAL HYPERTENSION[SNOMED: 14275071] Diagnosis: DYSURIA[ICD9: 788.1] Concepción Flanagan MD, [facility] CPT-4: 45489 04/03/2013 ([id number]) 15765 EST. P ATIENT, LEVEL III Diagnosis: ESSENTIAL HYPERTENSION[SNOMED: 53027343] Diagnosis: EDEMA[ICD9: 782.3] Concepción Flanagan MD, [facility] CPT-4: 77868 01/06/2013 ([id number]) 72509 EST. P ATIENT, LEVEL III Diagnosis: UNSPECIFIED ASTHMA[ICD9: 493.90] Diagnosis: Cough[ICD9: 786.2] Diagnosis: ALLERGIC RHINITIS[ICD9: 477.9] Concepción Flanagan MD, [facility] CPT-4: 42587 11/21/2012 ([id number]) 50451 EST. P ATIENT, LEVEL IV Diagnosis: ESSENTIAL HYPERTENSION[SNOMED: 82205577] Diagnosis: EDEMA[ICD9: 782.3] Concepción Flanagan MD, [facility] CPT-4: 06847 10/28/2012 ([id number]) 18425 EST. P ATIENT, LEVEL IV Diagnosis: ESSENTIAL HYPERTENSION[SNOMED: 30533219] Diagnosis: EDEMA[ICD9: 782.3] Diagnosis: Knee pain, right[ICD9: 719.46] Diagnosis: Urge incontinence[ICD9: 788.31] Concepción Flanagan MD, [facility] CPT-4: 99730 09/30/2012 ([id number]) 55958 EST. P ATIENT, LEVEL III Diagnosis: ESSENTIAL HYPERTENSION[SNOMED: 65191335] Concepción Flanagan MD, [facility] CPT-4: 42763 08/14/2012 ([id number]) 76669 EST. P ATIENT, LEVEL III Diagnosis: CELLULITIS OF LEG[ICD9: 682.6] Concepción Flanagan MD, [facility] CPT-4: 71204 08/05/2012 ([id number]) 70087 EST. P ATIENT, LEVEL IV Diagnosis: ESSENTIAL HYPERTENSION[SNOMED: 89041737] Diagnosis: EDEMA[ICD9: 782.3] Diagnosis: Constipation[ICD9: 564.00] Concepción Flanagan MD, [facility] CPT-4: 47415 07/15/2012 ([id number]) 16401 EST. P ATIENT, LEVEL III Diagnosis: Subungual contusion of toenail[ICD9: 924.3] Concepción Flanagan MD, [facility] CPT-4: 25022 05/27/2012 Postop follow up vis it related to original px Diagnosis: BENIGN ERLINDA SKIN ARM[ICD9: 216.6] Diagnosis: BENIGN ERLINDA SKIN TRUNK[ICD9: 216.5] Concepción Flanagan MD, [facility] CPT- 4: 98048 05/03/2012 ([id number]) 26975 EST. P ATIENT, LEVEL IV Diagnosis: ESSENTIAL HYPERTENSION[SNOMED: 82835584] Diagnosis: OA (osteoarthritis) of knee[ICD9: 715.96] Diagnosis: EDEMA[ICD9: 782.3] Concepción Flanagan MD, [facility] CPT-4: 96482 03/25/2012 91418 EST. PATIENT, LEVEL IV Diagnosis: ESSENTIAL HYPERTENSION[SNOMED: 87851334] Diagnosis: Abdominal bloating[ICD9: 787.3] Concepción Flanagan MD, [facility] CPT-4: 05170 03/12/2012 ([id number]) 10195 EST. P ATIENT, LEVEL IV Diagnosis: ESSENTIAL HYPERTENSION[SNOMED: 44487455] Diagnosis: EDEMA[ICD9: 782.3] Concepción Flanagan MD, [facility] CPT-4: 56429 01/23/2012 ([id number]) 03819 EST. P ATIENT, LEVEL III Diagnosis: Breast pain, left[ICD9: 611.71] Chaparrita Flanagan MD, [facility] CPT- 4: 88623 01/12/2012 ([id number]) 91264 EST. P ATIENT, LEVEL IV Diagnosis: ESSENTIAL HYPERTENSION[SNOMED: 40033148] Diagnosis: DEPRESSIVE DISORDER NEC[ICD9: 311] Diagnosis: ANXIETY STATE[ICD9: 300.00] Concepción Flanaagn MD, [facility] CPT-4: 07809 12/25/2011 ([id number]) 90937 EST. P ATIENT, LEVEL IV Diagnosis: ESSENTIAL HYPERTENSION[SNOMED: 94772669] Diagnosis: EDEMA[ICD9: 782.3] Concepción Flanagan MD, [facility] CPT-4: 70964 12/04/2011 ([id number]) 99033 EST. P ATIENT, LEVEL IV Diagnosis: ESSENTIAL HYPERTENSION[SNOMED: 97065812] Diagnosis: DEPRESSIVE DISORDER NEC[ICD9: 311] Concepción Flanagan MD, [facility] CPT- 4: 98035 09/20/2011 34790 EST. PATIENT, LEVEL IV Diagnosis: Dysuria[ICD9: 788.1] Diagnosis: ESSENTIAL HYPERTENSION[SNOMED: 56273655] Diagnosis: Anxiety[ICD9: 300.00] Concepción lFanagan MD, [facility] CPT-4: 74289 09/06/2011 ([id number]) 30759 EST. P ATIENT, LEVEL IV Diagnosis: LUMBAGO[ICD9: 724.2] Diagnosis: ESSENTIAL HYPERTENSION[SNOMED: 50951796] Concepción Flanagan MD, [facility] CPT-4: 99846 08/30/2011 34963 EST. PATIENT, LEVEL III Diagnosis: ACUTE SINUSITIS[ICD9: 461.9] Diagnosis: Urinary frequency[ICD9: 788.41] Chaparrita Flanagan MD, [facility] CPT- 4: 68396 08/23/2011 36951 EST. PATIENT, LEVEL III Diagnosis: Lesion of labia[ICD9: 624.8] Chaparrita Flanagan MD, [facility] CPT- 4: 71093 08/09/2011 88792 EST. PATIENT, LEVEL IV Diagnosis: HYPOTHYROIDISM[ICD9: 244.9] Diagnosis: HYPERLIPIDEMIA[ICD9: 272.4] Diagnosis: BP (high blood pressure)[SNOMED: 93793510] Diagnosis: Knee pain, bilateral[ICD9: 719.46] Diagnosis: ESOPHAGEAL REFLUX[ICD9: 530.81] Concepción Flanagan MD, [facility] CPT-4: 53141 05/04/2011 12834 EST. PATIENT, LEVEL III Diagnosis: ACUTE URI[ICD9: 465.9] Diagnosis: Asthma[ICD9: 493.90] Diagnosis: Esophageal reflux[ICD9: 530.81] Chaparrita Flanagan MD, [facility] CPT- 4: 12472 04/19/2011 Plan of Care Planned Activity Notes C odes Status Date Patient Education: Patient Medication Summary Completed 02/15/2017 Visit Plan: Cibha-bltlwxyrol-xkrtx zpack when finished with cipro-follow up chest xray on SundayUT-finish cipro and repeat UA 02/05/2017 Patient Education: Patient Medication Summary Completed 02/05/2017 Visit Plan: Esophageal Reflux - the bessie ent has been counseled against excessive intake of caffeine, spicy foods, peppermint, and cinnamon - all of which can exacerbate esophageal reflux.The patient is to take medications as prescribed and call the office if the symptoms are not improving.TAKE OMEPRAZOLE DAILY UTI- on cipro per Dr Marino which is sensitive to bacteria Constipation-increase stool softener to QOD, daily if needed Edema-take lasix every day-follow up Sunday02/02/2017 Appointment: Chaparrita Arrieta WPtel: [phone] [phone] (15 min) Moderate 02/02/2017 Patient Education: Patient Medication Summary Completed 02/02/2017 Patient Education: Obesity Completed 02/02/2017 Visit Plan: Sinusitis - Pt has acute inf ection - pain in face, maxillary region, Pt informed to use decongestant, RX given to patient, sinus rinses also recommended. Call if symptoms do not show improvement. 01/15/2017 Appointment: Chaparrita Arrieta WPtel: [phone] (10 min) Simple 01/15/2017 Patient Education: Patient Medication Summary Completed 01/15/2017 Visit Plan: Hypertension - well controll ed - continue with current medications, continue with [...] and to assure normal liver response to medications.Chronic Pain Syndrome - pt has chronic pain - has been maintained on current medications, has not sought out other medications, only uses PRN pain medications as directed, and understands the consequences of over-m edication.Allergies - kenalog shot today 01/04/2017 Appointment: [facility] [phone] [phone] (15 min) Moderate 01/04/2017 Patient Education: Patient Medication Summary Completed 01/04/2017 Visit Plan: Hypertension - well controll ed - continue with current medications, continue with no added salt diet. Pt has been encouraged to exercise daily.The pt has been advised to call the office if there are any acute concerns about change in blood pressure readings at home.Anxiety - the patient has uncontrolled anxiety and will benefit from an SSRI on a daily basis to attempt control of the symptoms of anxiety (tachycardia, overwhelming sensations, stress, insomnia, etc). Pt is aware of the risks and benefits of treatment with the medication (lexapro). 09/07/2016 Appointment: [facility] [phone] [phone] (30 min) Complex 09/07/2016 Patient Education: Patient Medication Summary Completed 09/07/2016 Patient Education: Obesity Completed 09/07/2016 Appointment: Injection 08/23/2016 Patient Education: Patient Medication Summary Completed 08/23/2016 Visit Plan: Hypertension - well controll ed - continue with current medications, continue with no added salt diet. Pt has been encouraged to exercise daily.The pt has been advised to call the office if there are any acute concerns about change in blood pressure readings at home. 07/06/2016 Appointment: [place] Flan[place] W[facility]el[id number] (15 min) Moderate 07/06/2016 Patient Education: Patient Medication Summary Completed 07/06/2016 Patient Education: Obesity Completed 07/06/2016 Appointment: Nurse Visit 06/16/2016 Patient Education: Patient Medication Summary Completed 06/16/2016 Visit Plan: Hypertension - well controll ed - continue with current medications, continue with no added salt diet. Pt has been encouraged to exercise daily.The pt has been advised to call the office if there are any acute concerns about change in blood pressure readings at home.Depression - INCREASE THE LEXAPRO TO 10MG DAILYChronic pain - uncontrolled - START THE HYDROCODONE AT 1/2 PILL TWICE DAILY 06/08/2016 Appointment: [place] Flanagan WPtel[phone] [id number] (15 min) Moderate 06/08/2016 Patient Education: Patient Medication Summary Completed 06/08/2016 Visit Plan: continue with benicar 40mg, and increase her diltiazem to 240mg daily 04/17/2016 Appointment: Nurse Visit 04/17/2016 Patient Education: Patient Medication Summary Completed 04/17/2016 Patient Education: Hypertension Completed 04/17/2016 Visit Plan: Hypertension - well controll ed - continue with current medications, continue with no added salt diet. Pt has been encouraged to exercise daily.The pt has been advised to call the office if there are any acute concerns about change in blood pressure readings at home.Edema - pt has been advised to elevate legs to prevent dependent edema, compression has been recommended to help to naturally decrease peripheral edema. Diuretic use has been discussed and pt has been instructed in appropriate use of such medication as necessary to further attempt to reduce peripheral edema. 04/06/2016 Appointment: Concepción Flanagan [facility]el[phone] (15 min) Moderate 04/06/2016 Patient [...] the office next week for practitioner to review.The pt is to call for acute concerns.Anxiety - the patient has uncontrolled anxiety and will benefit from an SSRI on a daily basis to attempt control of the symptoms of anxiety (tachycardia, overwhelming sensations, stress, insomnia, etc). Pt is aware of the risks and benefits of treatment with the above medications.Hyperlipidemia - pt has been counseled about appropriate [...] and to assure normal liver response to medications.Hypothyroidism - pt with chronic hypothyroidism, continue with [...] Completed 03/09/2016 Visit Plan: Hypertension - well controll ed - continue with current medications, continue with [...] 6 months based on previous levels of control.Pt has nocturnal hypoxemia - has been wearing oxygen at 2 liters nasal cannula for years and has recent gotten a letter that she was being denied her oxygen. She needs oxygen and my office sent the letter and office note to her oxygen supplier. I will order an overnight oxygen for Mikala. 01/18/2016 Appointment: Concepción Flanagan WPtel: [address] [place], [place] [id number] (15 min) Moderate 01/18/2016 Patient Education: Patient Medication Summary Completed 01/18/2016 Patient Education: Obesity Completed 01/18/2016 Visit Plan: Hypertension - well controll ed - continue with current medications, continue with no added salt diet. Pt has been encouraged to exercise daily.The pt has been advised to call the office if there are any acute concerns about change in blood pressure readings at home.Arthritis-bilateraly knees- occasionally uncontrolled symptoms- recommend pt to take antiinflammatory as directed for pain control.RX for hydrocodone for breakthrough pain Hypothyroidism - pt with chronic hypothyroidism, continue with current medication, will monitor pt to signs or symptoms of lack of adequate supplementation. Pt is to continue with current dose of medication unless directed otherwise. Check labs at regular intervals wither q 3 months or q 6 months based on previous levels of control.Nocturnal hypoxemia-patient wears 2L oxygen at night and tolerating well-feeling more rested, sleeping better, and daytime fatigue improved-will fax today's note to [employer] for re- certification of oxygen. 09/09/2015 Visit Plan: Hypertension - well controll ed - continue with current medications, continue with no added salt diet. Pt has been encouraged to exercise daily.The pt has been advised to call the office if there are any acute concerns about change in blood pressure readings at home.Arthritis-bilateral knees- occasionally uncontrolled symptoms- recommend pt to take antiinflammatory as directed for pain control.RX for hydrocodone for breakthrough pain Hypothyroidism - pt with chronic hypothyroidism, continue with current medication, will monitor pt to signs or symptoms of lack of adequate supplementation. Pt is to continue with current dose of medication unless directed otherwise. Check labs at regular intervals wither q 3 months or q 6 months based on previous levels of control.Nocturnal hypoxemia-patient wears 2L oxygen at night and tolerating well-feeling more rested, sleeping better, and daytime fatigue improved-will fax today's note to [employer] for re- certification of oxygen. 09/09/2015 Appointment: (15 min) Moderate 09/09/2015 Patient Education: Patient Medication Summary Completed 09/09/2015 Patient Education: Hypertension Completed 09/09/2015 Visit Plan: Hypertension - well controll ed - continue with current medications, continue with no added salt diet. Pt has been encouraged to exercise daily.The pt has been advised to call the office if there are any acute concerns about change in blood pressure readings at home.Anemia - check CBC today.Sleep apnea and nocturnal hypoxemia - pt is not interested at this time to have a sleep study - she will discuss with her son who is a [employer] - and consider re- evaluation for nasal pillows with her cpap since she could not tolerate a face mask cpap in the past. 12/25/2014 Appointment: Concepción Flanagan [facility]Ptel[phone] Follow up 12/25/2014 Patient Education: Patient Medication Summary Completed 12/25/2014 Patient Education: Hypertension Completed 12/25/2014 Visit Plan: Hypertension - well controll ed - continue with current medications, continue with no added salt diet. Pt has been encouraged to exercise daily.The pt has been advised to call the office if there are any acute concerns about change in blood pressure readings at home. 10/13/2014 Appointment: Concepción Flanagan WPtel[phone] Follow up 10/13/2014 Patient Education: Patient Medication Summary Completed 10/13/2014 Patient Education: Hypertension Completed 10/13/2014 Visit Plan: Hypertension - well controll ed - continue with current medications, continue with [...] and to assure normal liver response to medications.Sleep Apnea - recommended pt to have sleep study - she will discuss with her . 08/28/2014 Appointment: Concepción Flanagan WPtel[phone] Follow up 08/28/2014 Patient Education: Patient Medication Summary Completed 08/28/2014 Patient Education: Hypertension Completed 08/28/2014 Appointment: Nurse Visit 08/07/2014 Patient Education: Patient Medication Summary Completed 08/07/2014 Patient Education: Hypertension Completed 08/07/2014 Patient Education: Patient Medication Summary Completed 05/20/2014 Visit Plan: Sinusitis - Pt has acute inf ection - pain in face, maxillary region, Pt informed to use decongestant, RX given to patient, sinus rinses also recommended. Call if symptoms do not show improvement.UTI - pt with positive urinalysis - culture sent if appropriate. Antibiotic electronically prescribed to pt's pharmacy of choice. Pt to call if symptoms do not improve.Nocturnal hypoxia-overnight oxygen study 05/07/2014 Patient Education: Patient Medication Summary Completed 05/07/2014 Visit Plan: Hypertension - per home repo rts, her blood pressure has been well controlled [...] and to assure normal liver response to medications.OA - pain uncontrolled - start on meloxicam, monitor creatinine. 04/16/2014 Appointment: Concepción Flanagan WPtel: [facility] Follow up 04/16/2014 Patient Education: Patient Medication Summary Completed 04/16/2014 Patient Education: Patient Medication Summary Completed 04/14/2014 Patient Education: Hypertension Completed 04/14/2014 Visit Plan: Wound Instructions - Pt was instruced to keep the wound clean, wash with antibacterial soap, use triple antibiotic ointment, call if redness, pustular drainage, or any other acute conerns. 01/27/2014 Appointment: Concepción Flanagan WPtel: [facility] Surgical Procedure 01/27/2014 Patient Education: Patient Medication Summary Completed 01/27/2014 Visit Plan: Hypertension - well controll ed - continue with current medications, continue with [...] in hearing.The wax was removed by the practicioner due to the wax being more complicated to remove, and staff was needed to assit the removal of the wax by holding the ear, and keepig patient stabilized during the removal process.Nocturnal Hypoxemia - recommended pt to continue with home oxygen - recommended pt to have the medical supplier come out to do home eval. 2013 Appointment: Concepción Flanagan WPtel: [phone] [id number] Follow up 01/21/2014 Patient Education: Patient Medication Summary Completed 01/21/2014 Patient Education: Hypertension Completed 01/21/2014 Visit Plan: Hypotension - Bradycardia - pt to stop her metroprolol - check bp and heart rate twice daily and monitor symptoms. Call if bp uncontrolled- or heart rate to elevated. 01/07/2014 Appointment: Concepción Flanagan WPtel: [phone] [facility] Follow up 01/07/2014 Patient Education: Hypertension Completed 01/07/2014 Patient Education: Patient Medication Summary Completed 01/07/2014 Visit Plan: URI - Pt advised to increase fluids, vitamin C. Discussed natural and expected course of this diagnosis and need to alert me if symtpoms do not follow expected course, or if any worse. RX sent to patient's pharmacy. 2013 Patient Education: Patient Medication Summary Completed 12/26/2013 Visit Plan: Allergies - chronic - recomm ended pt to use allergy medication as prescribed. Pt has been counseled as the the appropriate use of the medication. Pt to call if allergy symptoms are not controlled with the medication.Kenalog injection today in the office. Thrush-RX for nystatin swish and swallow 2013 Appointment: Chaparrita Arrieta WPtel: [phone] [phone] Sick 11/12/2013 Patient Education: Patient Medication Summary Completed 11/12/2013 Patient Education: Hypertension Completed 11/12/2013 Visit Plan: Sinusitis - Pt has acute inf ection - pain in face, maxillary region, Pt informed to use decongestant, RX given to patient, sinus rinses also recommended. Call if symptoms do not show improvement. 10/09/2013 Appointment: Chaparrita Arrieta WPtel: [phone] [phone] Sick 10/09/2013 Patient Education: Patient Medication Summary Completed 10/09/2013 Visit Plan: Hypertension - well controll ed - continue with current medications, continue with no added salt diet. Pt has been encouraged to exercise daily.The pt has been advised to call the office if there are any acute concerns about change in blood pressure readings at home.Dysuria - check UA 2012 Appointment: Concepción Flanagan WPtel: [facility]5 [facility] Follow up 04/03/2013 Patient Education: Patient Medication Summary Completed 04/03/2013 Patient Education: Hypertension Completed 04/03/2013 Patient Education: Patient Medication Summary Completed 03/31/2013 Patient Education: Hypertension Completed 03/31/2013 Visit Plan: ua performed - sent for culture if indicat ed. 03/21/2013 Appointment: Concepción Flanagan WPtel: [facility]5 [facility] Lab Draw 03/21/2013 Patient Education: Patient Medication Summary Completed 03/21/2013 Visit Plan: Hypertension - well controll ed - continue with current medications, continue with [...] edema. 01/06/2013 Appointment: Concepción Flanagan WPtel: [phone] Follow up 01/06/2013 Patient Education: Patient Medication Summary Completed 01/06/2013 Patient Education: Hypertension Completed 01/06/2013 Visit Plan: Hspdtuulh-Pmxelz-ikxodwja no t well controlled-KENALOG injection today in the office-use albuterol as needed. Instructed patient to continue with singulair daily and call if symptoms do not improve, or worsen. 2012 Patient Education: Patient Medication Summary Completed 11/21/2012 Visit Plan: Hypertension - well controll ed - continue with current medications, continue with [...] edema. 10/28/2012 Appointment: Concepción Flanagan WPtel: [phone] Follow up 10/28/2012 Patient Education: Patient Medication Summary Completed 10/28/2012 Patient Education: Hypertension Completed 10/28/2012 Visit Plan: Hypertension - well controll ed - continue with current medications, continue with no added salt diet. Pt has been encouraged to exercise daily.The pt has been advised to call the office if there are any acute concerns about change in blood pressure readings at home.Edema-stable, actually improved from usual, continue with current [...] current treatment plan and call if symptoms worsen.Knee pain- recommended pt to use Pennsaid drops for knee pain and to see Dr. Joshi for further treatment recommendations. 09/30/2012 Appointment: Concepción Flanagan WPtel: [phone] Follow up 09/30/2012 Patient Education: Patient Medication Summary Completed 09/30/2012 Patient Education: Hypertension Completed 09/30/2012 Appointment: Concepción Flanagan WPtel: [facility]5 [facility] Lab Draw 09/11/2012 Patient Education: Patient Medication Summary Completed 09/11/2012 Patient Education: Hypertension Completed 09/11/2012 Visit Plan: Hypertension - well controll ed - continue with current medications, continue with no added salt diet. Pt has been encouraged to exercise daily.The pt has been advised to call the office if there are any acute concerns about change in blood pressure readings at home.Cellulitis - resolved 2011 Appointment: Concepción Flanagan WPtel: [address] [place], [place] [id number] Follow up 08/14/2012 Patient Education: Patient Medication Summary Completed 08/14/2012 Patient Education: Hypertension Completed 08/14/2012 Visit Plan: Cellulitis - start with gene gail Bactrim DS as directed, return to clinic as previously directed, call for acute change in symptoms, worsening redness, warmth, discharge. 08/05/2012 Appointment: Concepción Flanagan WPtel: [facility]6 [facility]66[facility] Follow up 08/05/2012 Patient Education: Patient Medication Summary Completed 08/05/2012 Visit Plan: Hypertension - well controll ed - continue with current medications, continue with [...] necessary to further attempt to reduce peripheral edema.Constipation- miralax to be started snd she is to use this daily to help soften stools. 07/15/2012 Appointment: Concepción Flanagan WPtel: [phone] [facility] [facility] follow up 07/15/2012 Patient Education: Patient Medication Summary Completed 07/15/2012 Patient Education: Hypertension Completed 07/15/2012 Visit Plan: Subungual discoloratiion of toenail- June [address] Bee - I have discussed the case with the pt and Dr. bee and she will likely have a biopsy of the digit and avulsion of the nail. 05/27/2012 Appointment: Concepción Flanagan WPtel: [facility]5 [facility] Other 05/27/2012 Patient Education: Patient Medication Summary Completed 05/27/2012 Appointment: Chaparrita Arrieta WPtel: [facility]5 [phone] Follow up 05/16/2012 Visit Plan: Obesity - chronic issue with this patient. The pt has been counseled about diet changes, calorie restriction, and need to exercise. Pt will RTC in one month for weight check.Diabetes Mellitus - Uncontrolled - per recent FSBS [...] glucose readings are starting to become less controlled.I have recommended for the patient to follow more strictly to the diabetic diet as discussed in clinic to allow for greater blood glucose control.Wound Instructions - Pt was instruced to keep the wound clean, wash with antibacterial soap, use triple antibiotic ointment, call if redness, pustular drainage, or any other acute conerns. Sutures removed todayInfluenza vaccine 05/03/2012 Appointment: Chaparrita Arrieta WPtel: [facility]5 [phone] Follow up 05/03/2012 Patient Education: Patient Medication Summary Completed 05/03/2012 Visit Plan: Wound Instructions - Pt was instruced to keep the wound clean, wash with antibacterial soap, use triple antibiotic ointment, call if redness, pustular drainage, or any other acute conerns. 04/23/2012 Appointment: Concepción Flanagan WPtel: [facility] Surgical Procedure 04/23/2012 Patient Education: Patient Medication Summary Completed 04/23/2012 Appointment: Concepción Flanagan WPtel: [phone] [facility] Lab Draw 04/16/2012 Patient Education: Patient Medication Summary Completed 04/16/2012 Patient Education: High Blood Pressure: Essential Hypertension Completed 04/16/2012 Visit Plan: Hypertension - well controll ed - continue with current medications, continue with no added salt diet. Pt has been encouraged to exercise daily.The pt has been advised to call the office if there are any acute concerns about change in blood pressure readings at home.Recommend follow up with manager green for clearance before knee surgery. Will get patient appt with Dr. Luther Arthritis- occasionally uncontrolled symptoms- recommend pt to take antiinflammatory as directed for pain control.Use tylenol for break through pain symptoms. Will start butrans today per Dr. Urena recommendation and montior symptoms. Appt with Dr. Joshi for possible knee replacementEdema - uncontrolled swelling. I have informed the [...] use compression socks from toes to thighs. 2011 Appointment: Concepción Flanagan WPtel: [facility]5 [facility] Other 03/25/2012 Patient Education: Patient Medication Summary Completed 03/25/2012 Patient Education: High Blood Pressure: Essential Hypertension Completed 03/25/2012 Visit Plan: Hypertension - uncontrolled - the [...] the office next week for practicioner to review.The pt is to call for acute concerns.Gas and bloating-recommend beano prnAbnormal skin lesion-right posterior arm-recommend removal and biopsy of lesion. 03/12/2012 Appointment: Chaparrita Arrieta WPtel: [facility]5 [phone] Other 03/12/2012 Patient Education: Patient Medication Summary [...] necessary to further attempt to reduce peripheral edema.HAS BEEN ADVISED TO TAKE AN EXTRA 1/2 [...] Concepción Flanagan WPtel: [facility]5 [facility] Other 01/23/2012 Patient Education: Patient Medication Summary Completed 01/23/2012 Patient Education: High Blood Pressure: Essential Hypertension Completed 01/23/2012 Visit Plan: Breast alew-xdxx-jzgdpiptw n atural and expected course of this diagnosis and to alert me if symptoms do not follow expected course, or if any worse. Plan for diagnostic mammogram, in meantime, instructed patient to get more supportive bra, use anti-inflammatories and monitor symptoms. Patient verbalized understanding of plan. 01/12/2012 Appointment: Chaparrita Arrieta WPtel: [phone] Other 01/12/2012 Patient Education: Patient Medication Summary Completed 01/12/2012 Visit Plan: HTN - continue with current medications - no change at this time.Recommended follow up in about 4 weeks.Bring by the blood pressure readings in two weeks. Chronic Depression and anxiety - the pt has symptoms of chronic anxiety and depression that have been fairly well controlled since the last office visit. The pt has expected periods of exacerbation with abatement of the symptoms with change in situational exposure. No change in current medications. 12/25/2011 Appointment: Concepción Flanagan WPtel: [address] [place], [place] [id number] Other 12/25/2011 Patient Education: Patient Medication Summary Completed 12/25/2011 Patient Education: High Blood Pressure: Essential Hypertension Completed 12/25/2011 Patient Education: Patient Medication Summary Completed 12/21/2011 Patient Education: High Blood Pressure: Essential Hypertension Completed 12/21/2011 Visit Plan: Hypertension - uncontrolled - the [...] the office next week for practicioner to review.The pt is to call for acute concerns.STOP the NORVASC START ON THE TEKTUNA AND STAY ON THE MICARDIS FOR NOW.RETURN TO CLINIC IN 3 WEEKS.CHECK BLOOD PRESSURE DAILY AND HEART RATE DAILY AND CALL THE BLOOD PRESSURE AND HEART RATE INTO CLINIC NEXT SUNDAY.CALL SOONER IF THE BLOOD PRESSURE IS ABOVE 170/90.TEKTURNA IS 150MG Edema - pt has been advised to elevate legs to prevent dependent edema, compression has been recommended to help to naturally decrease peripheral edema. Diuretic use has been discussed and pt has been instructed in appropriate use of such medication as necessary to further attempt to reduce peripheral edema. FOR THE EDEMA - GET THE COMPRESSION SOCKS. 2011 Appointment: Concepción Flanagan WPtel: [address] [place], [place] [address] Other 12/04/2011 Patient Education: Patient Medication Summary Completed 12/04/2011 Patient Education: High Blood Pressure: Essential Hypertension Completed 12/04/2011 Appointment: Chaparrita Arrieta WPtel: [address] [place], [place] [phone] [place] Lab Draw 12/01/2011 Patient Education: Patient Medication Summary Completed 12/01/2011 Appointment: Concepción Flanagan WPtel: [phone] [facility] Draw 11/20/2011 Patient Education: Patient Medication [...] the office next week for practicioner to review.The pt is to call for acute concerns.Pt started on norvasc 5 mg daily, call [...] the risks associated with NOT treating the depression.I believe the pt will benefit from continued medical intervention and she was given samples and a copay card for free 30 day trial of cymbalta 30mg. pt to call if symptoms acutely worsen. 09/20/2011 Appointment: Concepción Flanagan WPtel: [facility]5 [facility] Other 09/20/2011 Patient Education: Patient Medication Summary Completed 09/20/2011 Patient Education: High Blood Pressure: Essential Hypertension Completed 09/20/2011 Appointment: Concepción Flanagan WPtel: [phone] Other 09/13/2011 Visit Plan: Hypertension - The patient h as been counseled to cut back on salt in diet for a no added salt diet, low fat diet, start an exercise program with low weight bearing exercises and higher aerobic activity for heart health. The patient is to check blood pressure readings as an outpatient and either fax, call, or email the readings to the office next week for practicioner to review.The pt is to call for acute concerns. Anxiety - the patient has uncontrolled anxiety and will benefit from medication on a daily basis to attempt control of the symptoms of anxiety (tachycardia, overwhelming sensa tions, stress, insomnia, etc). Pt is aware of the risks and benefits of treament with the above medications.Lvhamjn-gbubansa-YN negative 09/06/2011 Appointment: Chaparrita Arrieta WPtel: [phone] [place] [phone] Other 09/06/2011 Patient Education: Patient Medication Summary Completed 09/06/2011 Patient Education: High Blood Pressure: Essential Hypertension Completed 09/06/2011 Visit Plan: Hypertension - uncontrolled - the [...] the office next week for practicioner to review.The pt is to call for acute concerns.CONTINUE WITH THE METOPROLOL 100MG IN THE MORNING [...] Concepción Flanagan WPtel: [facility] [place] [phone] [place] Other 08/30/2011 Patient Education: Patient Medication Summary Completed 08/30/2011 Patient Education: High Blood Pressure: Essential Hypertension Completed 08/30/2011 Visit Plan: Sinusitis - Pt has acute inf ection - pain in face, maxillary region, Pt informed to use decongestant, RX given to patient, sinus rinses also recommended. Call if symptoms do not show improvement. Rocephin injection given in the offie today. Urinary Frequency-UA done today-shows positive nitrites-plan to send for culture-RX for levaquin also sent to patient's pharmacy. 2010 Appointment: Chaparrita Arrieta WPtel: [facility]9 [phone] Other 08/23/2011 Patient Education: Patient Medication Summary Completed 08/23/2011 Visit Plan: Labial cyst-discussed natura l and expected course of this diagnosis and to alert me if symtpoms do not follow expected course, or if any worse. Patient and verbalized understanding. 08/09/2011 Appointment: Chaparrita Arrieta WPtel: [phone] [phone] Other 08/09/2011 Patient Education: Patient Medication Summary Completed 08/09/2011 Visit Plan: Hypertension - well control led - continue with current medications, continue with [...] to assure normal liver response to medications.Knee pain- DR FLANAGAN WILL CALL DR. JOSHI TO ASK ABOUT KNEE ASPIRATION. Esophageal Reflux - the patient has been counseled against excessive intake of caffiene, spicy foods, peppermint, and cinnamon - all of which can exacerbate esophageal reflux.The patient is to take medications as prescribed and call the office if the symptoms are not improving. 05/04/2011 Appointment: Concepción Flanagan WPtel: [phone] [id number] [place] Other 05/04/2011 Patient Education: Patient Medication Summary Completed 05/04/2011 Visit Plan: URI-discussed expected cours e with the patient, pt advised to call [...] 40mg daily. 04/19/2011 Appointment: Berny Chaparrita WPtel: [facility] [phone] Other 04/19/2011 Patient Education: Patient Medication Summary Completed 04/19/2011 Instructions Comment . Hypertension - wel l controlled [...] twice daily and monitor symptoms. . Breast igmo-ffjp-modfzscfi natural and expected course of this diagnosis [...] discuss with her son who is a [employer] - and consider re-evaluation for nasal [...] do not improve, or if any worse.. Brnurrsfp-Wxbgqx-xnwmwmtg not well controlled-KENALOG injection today in the [...] benefits of treament with the above medications. Orhsjbf-uwtzmgfd-BA negative . Hypertension - wel l controlled [...] to reduce peripheral edema. . Hypertension - lynne tate controlled - continue with current medications, continue [...] readings at home. Recommend follow up with manager green for clearance before knee surgery. Will get [...] daytime fatigue improved-will fax today's note to [employer] for re-certification of oxygen. . Hypertension - [...] daytime fatigue improved-will fax today's note to [employer] for re-certification of oxygen. . Hypertension - [...] levaquin also sent to patient's pharmacy. . Wdrel-lulqvtmmdy-m tart zpack when finished with cipro- follow [...]
--- OUTSIDE RECORDS SUMMARY | 2020-01-05 01:40 | XMS REPORT | CCD ---
Author Author Mikala Arrieta Organization [facility] Address [address] [place] [address] Phone Care Team Providers Care Wellness Director Name Role Phone [facility] Un[facility] CCM Unavailable Summary Purpose Interface Exchange Insurance Providers Payer name Policy type / Coverage type Covered republican ID Effective Begin Date Effective End Date WPS Medicare Part B 50 [id number] 2015 Unknown AARP [id number] 2015 Unknown Family history Father Diagnosis Age At Onset Stroke Unknown Mother Diagnosis Age At Onset Tuberculosis Unknown Social History Social History Element Codes Description Effective Dates Education level Unknown College Graduate 04/23/2012 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 Marital status Unknown M arried 04/19/[address]: 9795264 Quit over 10 years ago 40 pack/year history 04/19/[address]: 100782674 Never drinks alcohol 04/19/2011 Allergies, Adverse Reactions, Alerts Allergies, Adverse Reactions, Alerts data not found Past Medical History Illness Codes Condition Status Onset Date Resolved Date Cough ICD-9: 786.2 ICD-10: R05 Active 01/15/2017 [...] ICD-9: 477.9 ICD-10: J30.1 Active 01/04/2017 Unknown Essential (primary) hypertension ICD-9: 401.1 ICD-10: [...] Condition Codes Effectiv e Dates Condition Status Cough ICD-9: 786.2 ICD-10: R05 01/15/2017 Active Urinary tract infect ion, site not specified ICD-9: 599.0 ICD-10: N39.0 02/02/2017 Active Gastro-esophageal re flux 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 ICD-9: 530.81 ICD-10: K21.9 02/02/2017 Active Localized edema ICD-9: 782.3 ICD-10: R60.0 05/07/2014 Active Acute recurrent maxi llary sinusitis ICD-9: 461.0 ICD-10: J01.01 01/15/2017 Active Allergic rhinitis du e to pollen ICD-9: 477.9 ICD-10: J30.1 01/04/2017 Active Essential (primary) hypertension ICD-9: 401.1 ICD-10: [...] Instructions Zithromax Z-Hebert 250 mg tablet RxNorm: 105730 1 Tablet(s) PO UD 02/05/2017 02/09/2017 Active start with finished with cipro Cipro 500 mg tablet RxNorm: 222338 1 Tablet(s) PO BID 02/01/2017 02/07/2017 Active prednisone 20 mg tablet RxNorm: 463973 1 Tablet(s) PO BID 01/15/2017 01/19/2017 Inactive take 1 in the morning and 1 at noon Anusol-HC 25 mg rect al suppository RxNorm: 9636887 1 Suppository PRN IN SERT 1 RECTALLY DAILY NEEDED 01/04/2017 04/03/2017 Active calcium carbonate 60 0 mg calcium (1,500 mg) tablet RxNorm: 874148 1 Tablet(s) PO daily 01/04/2017 No Stop Date Active Kenalog 40 mg/mL heaven pension for injection RxNorm: 4422339 1 Milliliter(s) Inj 01/04/2017 01/04/2017 In active Lasix 40 mg tablet RxNorm: 723004 TAKE ONE TABLET BY MOUTH DAILY 12/20/2016 09/15/2017 Ac tive Cartia XT 240 mg cap chad,extended release RxNorm: 486124 TAKE ONE CAPSULE BY M [facility] DAILY 12/20/2016 09/15/2017 Active Synthroid 50 mcg tablet RxNorm: 359117 1 Tablet(s) PO daily TAKE ONE TABLET BY MOUTH DAILY 11/27/2016 05/25/2017 Active Must be name brand meloxicam 15 mg tablet RxNorm: 119105 Tablet(s) TAKE ONE TABLET BY MOUTH ONE T MARÍA ELENA A DAY 11/27/2016 06/24/2017 Active Crestor 10 mg tablet RxNorm: 835415 TAKE 1 TABLET BY MOUTH ON SUNDAY, , AND Sunday11/13/2016 10/14/2017 Active Lexapro 10 mg tablet RxNorm: 853531 1 Tablet(s) PO daily 09/07/2016 01/03/2017 Inactive please make sure that her RX for lexapro is a 10mg dose - delete the 5mg lexapro pill - this is FYI Klor-Con 10 mEq tabl et,extended release RxNorm: 955343 TAKE ONE TABLET BY MO [facility] TWICE A DAY 08/29/2016 02/24/2017 Active Kenalog 40 mg/mL heaven pension for injection RxNorm: 9977842 Milliliter(s) Inj 08/23/2016 08/23/2016 In active cefdinir 300 mg capsule RxNorm: 207334 1 Capsule(s) PO BID 08/22/2016 08/28/2016 Inactive take probiotic while on abx Zithromax Z-Hebert 250 mg tablet RxNorm: 364272 1 Tablet(s) PO UD 08/11/2016 09/06/2016 Inactive Z PACK DIRECTED Lexapro 5 mg tablet RxNorm: 293086 TAKE ONE TABLET BY MOUTH EVERY EVENING 07/18/2016 09/06/2016 In active Singulair 10 mg tablet RxNorm: 708821 TAKE ONE TABLET BY MOUTH EVERY DAY 07/17/2016 01/07/2018 Ac tive Benicar 40 mg tablet RxNorm: 353630 TAKE ONE TABLET BY MOUTH DAILY 07/17/2016 07/11/2017 Ac tive Lexapro 10 mg tablet RxNorm: 701009 1 Tablet(s) PO daily 06/16/2016 09/06/2016 Inactive diltiazem ER 180 mg capsule,extended release RxNorm: 497310 TAKE ONE CAPSULE BY M OUTH DAILY 06/15/2016 07/05/2016 Inactive Lexapro 10 mg tablet RxNorm: 338144 1 Tablet(s) PO daily 06/08/2016 06/15/2016 Inactive gabapentin 600 mg ta blet RxNorm: 545442 TAKE ONE TABLET BY MO U[facility] EVERY NIGHT AT BEDTIME NEEDED 04/27/2016 01/21/2017 Inactive Cartia XT 240 mg cap chad,extended release RxNorm: 022618 1 Capsule(s) PO daily TAKE ONE CAPSULE BY MOUTH ONCE A DAY 04/17/2016 12/19/2016 Inactive Benicar 40 mg tablet RxNorm: 678274 1 Tablet(s) PO daily 04/17/2016 07/16/2016 Inactive she can do 90 days if she wants to Lexapro 5 mg tablet RxNorm: 351275 1 Tablet(s) PO QPM 03/09/2016 06/07/2016 Inactive Colace 100 mg capsule RxNorm: 2585463 1 Capsule(s) PO daily 01/18/2016 No Stop Date Active hydrocodone 5 mg-patrizia taminophen 325 mg tablet RxNorm: 282399 1/2 Tablet(s) PO QID as needed 01/18/2016 02/16/2016 Inactive Synthroid 50 mcg tablet RxNorm: 934282 1 Tablet(s) PO daily TAKE ONE TABLET BY MOUTH DAILY 01/18/2016 07/15/2016 Inactive Synthroid 50 mcg tablet RxNorm: 239315 Tablet(s) TAKE ONE TABLET BY MOUTH DAILY 12/23/2015 01/17/2016 In active Benicar 40 mg tablet RxNorm: 485775 1 Tablet(s) PO daily 12/13/2015 12/12/2015 Inactive Benicar 40 mg tablet RxNorm: 758474 1 Tablet(s) PO daily 12/13/2015 04/10/2016 Inactive meloxicam 15 mg tablet RxNorm: 076821 TAKE ONE TABLET BY MOUTH ONE TIME A DAY 11/12/2015 06/08/2016 In active meloxicam 15 mg tablet RxNorm: 335977 Tablet(s) TAKE ONE TABLET BY MOUTH ONE T MARÍA ELENA A DAY 11/11/2015 11/11/2015 Inactive Lasix 40 mg tablet RxNorm: 148805 Tablet(s) TAKE ONE TABLET BY MOUTH EVERY DAY 10/19/2015 12/19/2016 Inactive diltiazem ER 180 mg capsule,extended release RxNorm: 155811 1 Capsule(s) daily TA KE ONE CAPSULE BY MOUTH ONCE A DAY 09/27/2015 04/16/2016 Inactive Crestor 10 mg tablet RxNorm: 191459 1 Tablet(s) PO Sun09/17/2015 07/12/2016 Inactive [SAVINGS FOR UNINSURED PATIENTS -- BIN:0 26161, PCN: ASPROD1, Group: [id number], ID# [id number], Process claim through Check I'm Here, for questions: . THIS IS NOT INSURANCE.] hydrocodone 5 mg-patrizia taminophen 325 mg tablet RxNorm: 953300 1-2 Tablet(s) PO Q6 P RN 09/09/2015 10/08/2015 In active Micardis 80 mg tablet RxNorm: 064936 1 Tablet(s) PO daily TAKE ONE TABLET BY MOUTH DAILY 08/23/2015 12/12/2015 Inactive Klor-Con 10 mEq tabl et,extended release RxNorm: 843194 Tablet(s) TAKE ONE TA BLET BY MOUTH TWICE A DAY 08/23/2015 02/18/2016 Inactive Synthroid 50 mcg tablet RxNorm: 712639 TAKE ONE TABLET BY MOUTH DAILY 07/06/2015 12/22/2015 In active meloxicam 15 mg tablet RxNorm: 111215 TAKE ONE TABLET BY MOUTH ONE TIME A DAY 06/22/2015 11/10/2015 In active Singulair 10 mg tablet RxNorm: 437986 TAKE ONE TABLET BY MOUTH EVERY DAY 05/18/2015 07/16/2016 In active Micardis 80 mg tablet RxNorm: 890687 TAKE ONE TABLET BY MOUTH DAILY 02/22/2015 05/04/2015 In active gabapentin 600 mg ta blet RxNorm: 118320 1 Tablet(s) PO HS as needed 01/15/2015 01/09/2016 Inactive [SAVINGS FOR NON-COVERED DRUGS -- BIN:00 3585, PCN: ASPROD1, Group: [id number], ID# [id number], Questions: . THIS IS NOT INSURANCE.] diltiazem ER 180 mg capsule,extended release RxNorm: 126976 TAKE ONE CAPSULE BY M OUTH ONCE A DAY 01/07/2015 09/26/2015 Inactive meloxicam 15 mg tablet RxNorm: 635974 TAKE ONE TABLET BY MOUTH ONE TIME A DAY 11/09/2014 05/07/2015 In active gabapentin 600 mg ta blet RxNorm: 348454 1 Tablet(s) PO HS as needed 10/13/2014 01/14/2015 Inactive [SAVINGS FOR UNINSURED PATIENTS -- BIN:0 51736, PCN: ASPROD1, Group: [id number], ID# [id number], Process claim through [employer], for questions: . THIS IS NOT INSURANCE.] omeprazole 20 mg tab let,delayed release RxNorm: 756850 1 Tablet(s) PO daily 10/13/2014 11/11/2014 In active Synthroid 50 mcg tablet RxNorm: 149444 TAKE ONE TABLET BY MOUTH EVERY DAY 10/12/2014 01/09/2015 In active Synthroid 50 mcg tablet RxNorm: 981565 Tablet(s) TAKE ONE TABLET BY MOUTH EVERY DAY 10/12/2014 10/11/2014 Inactive [SAVINGS FOR UNINSURED PATIENTS -- BIN:0 97932, PCN: ASPROD1, Group: [id number], ID# [id number], Process claim through [employer], for questions: . THIS IS NOT INSURANCE.] Lasix 40 mg tablet RxNorm: 610372 Tablet(s) PO TAKE ONE TABLET BY MOUTH TW ICE A DAY FOR 3 DAYS, THEN RESUME ONE DAILY EXCEPT ON WEDNESDAYS AND FRIDAYS TAKE ONE TWICE DAILY 09/22/2014 No Stop Date Active [SAVINGS FOR UNINSURED PATIE NTS -- BIN:933444, PCN: ASPROD1, Group: [id number], ID# [id number], Process claim through [employer], for questions: . THIS IS NOT INSURANCE.] Lasix 40 mg tablet RxNorm: TAKE ONE TABLET BY MOUTH EVERY DAY 09/22/2014 10/18/2015 In active Crestor 10 mg tablet RxNorm: 525704 1 Tablet(s) PO Sun08/28/2014 04/24/2015 Inactive [SAVINGS FOR UNINSURED PATIENTS -- BIN:0 69526, PCN: ASPROD1, Group: [id number], ID# [id number], Process claim through Check I'm Here, for questions: . THIS IS NOT INSURANCE.] Crestor 10 mg tablet RxNorm: 605695 1 Tablet(s) PO Sun08/28/2014 08/27/2014 Inactive [SAVINGS FOR UNINSURED PATIENTS -- BIN:0 35471, PCN: ASPROD1, Group: [id number], ID# [id number], Process claim through Check I'm Here, for questions: . THIS IS NOT INSURANCE.] Micardis 80 mg tablet RxNorm: 305032 TAKE ONE TABLET BY MOUTH EVERY DAY 08/24/2014 12/21/2014 In active Zithromax Z-Hebert 250 mg tablet RxNorm: 396243 Tablet(s) PO UD 08/14/2014 08/18/2014 Inactive 2 tabs day 1, 1 tabs days 2-5 Anusol-HC 25 mg supp ository RxNorm: 5496207 INSERT 1 RECTALLY DA GUSTAVO NEEDED 07/13/2014 10/10/2014 In active Klor-Con 10 mEq tabl et,extended release RxNorm: 732828 TAKE ONE TABLET BY [facility] TWICE A DAY 06/18/2014 12/14/2014 Inactive Lomotil 2.5 mg-0.025 mg tablet RxNorm: 4954082 1 Tablet(s) PO PRN a fter each loose stool max 8 per day 06/15/2014 10/12/2014 Inactive one after each loose bm juarez it 8 per day albuterol sulfate HF A 90 mcg/actuation aerosol inhaler RxNorm: 8894102 1 or2 Puff(s) INH Q4 PRN as needed 05/11/2014 05/10/2014 Inactive albuterol sulfate HF A 90 mcg/actuation aerosol inhaler RxNorm: 6269351 1 or2 Puff(s) INH Q4 PRN as needed 05/11/2014 01/03/2017 Inactive Premarin 0.625 mg/gr am vaginal cream RxNorm: 933609 1/2 Gram(s) VAG every other day 05/11/2014 12/06/2014 In active Premarin 0.625 mg/gr am vaginal cream RxNorm: 146569 1/2 Gram(s) VAG every other day 05/11/2014 05/10/2014 In active cefdinir 300 mg capsule RxNorm: 545898 1 Capsule(s) PO BID 05/07/2014 05/16/2014 Inactive Rocephin 500 mg solu tion for injection RxNorm: 545113 1 Milliliter(s) Inj 05/07/2014 05/07/2014 In active Singulair 10 mg tablet RxNorm: 081839 TAKE ONE TABLET BY MOUTH EVERY DAY 04/30/2014 10/12/2014 In active meloxicam 15 mg tablet RxNorm: 202430 1 Tablet(s) PO daily 04/16/2014 11/08/2014 Inactive Crestor 10 mg tablet RxNorm: 146784 1 Tablet(s) PO Sun TAKE ONE TAB LET BY MOUTH EVERY DAY 04/16/2014 08/27/2014 Inactive Synthroid 50 mcg tablet RxNorm: 116804 TAKE ONE TABLET BY MOUTH EVERY DAY 04/02/2014 09/28/2014 In active diltiazem ER 180 mg capsule,extended release RxNorm: 353339 1 Capsule(s) PO daily 01/05/2014 12/30/2014 In active Pennsaid 1.5 % topic al drops RxNorm: 795539 Drop(s) TOP APPLY 15 - 20 DROPS TOPICALLY FOUR TIMES A DAY 12/29/2013 01/17/2016 Inactive Rocephin 500 mg solu tion for injection RxNorm: 778264 Inj 12/2612/26/2013 Inactive Kenalog 40 mg/mL heaven pension for injection RxNorm: 2181939 Milliliter(s) Inj 12/26/2013 12/26/2013 In active Micardis 80 mg tablet RxNorm: 067341 Tablet(s) PO TAKE ONE TABLET BY MOUTH 12/15/2013 08/23/2014 Inactive nystatin 100,000 uni t/mL oral suspension RxNorm: 068998 4 Unit(s) PO QID swis h and swallow 11/12/2013 12/09/2013 Inactive Kenalog 40 mg/mL heaven pension for injection RxNorm: 9980051 Milliliter(s) Inj 11/12/2013 11/12/2013 In active Lasix 40 mg tablet RxNorm: 635786 Tablet(s) PO TAKE ONE TABLET BY MOUTH TW ICE A DAY FOR 3 DAYS, THEN RESUME ONE DAILY EXCEPT ON WEDNESDAYS AND FRIDAYS TAKE ONE TWICE DAILY 10/30/2013 09/21/2014 Inactive Lasix 40 mg tablet RxNorm: 615547 1 Tablet(s) PO daily 10/30/2013 10/29/2013 Inactive Rocephin 500 mg solu tion for injection RxNorm: 778541 1 Milliliter(s) Inj 10/09/2013 10/09/2013 In active metoprolol succinate ER 25 mg tablet,extended release 24 hr RxNorm: 608508 Tablet(s) PO TAKE ONE TABLET BY MOUTH EVERY DAY 10/02/2013 01/06/2014 Inactive metoprolol succinate ER 25 mg tablet,extended release 24 hr RxNorm: 218312 Tablet(s) PO TAKE ONE TABLET BY MOUTH EVERY DAY 08/04/2013 10/01/2013 Inactive Synthroid 50 mcg tablet RxNorm: 914056 Tablet(s) PO TAKE ONE TABLET BY MOUTH EV DEANNA DAY 07/14/2013 04/01/2014 Inactive gabapentin 600 mg ta blet RxNorm: 360545 1 Tablet(s) PO Q8 PRN 06/11/2013 06/11/2013 Inactive gabapentin 600 mg ta blet RxNorm: 388531 1 Tablet(s) PO Q8 PRN 06/11/2013 03/07/2014 Inactive Neurontin 600 mg tablet RxNorm: 271209 1 Tablet(s) PO Q8 PRN 06/10/2013 06/11/2013 Inactive Anusol-HC 25 mg supp ository RxNorm: 7504062 Suppository RTL INSE RT 1 RECTALLY DAILY NEEDED 04/24/2013 07/12/2014 Inactive metoprolol succinate ER 25 mg tablet,extended release 24 hr RxNorm: 609509 1 Tablet(s) PO daily 04/21/2013 08/03/2013 Inactive Premarin 0.625 mg/gr am Vaginal Cream RxNorm: 937583 1/2 Gram(s) VAG every other day 04/03/2013 10/29/2013 In active Klor-Con 10 mEq tabl et,extended release RxNorm: 642284 1 Tablet(s) PO daily 03/26/2013 03/20/2014 In active Klor-Con 10 mEq tabl et,extended release RxNorm: 782727 1 Tablet(s) PO BID 03/24/2013 03/23/2013 In active Klor-Con 10 mEq tabl et,extended release RxNorm: 132700 1 Tablet(s) PO BID 03/24/2013 03/25/2013 In active Klor-Con 10 mEq tabl et,extended release RxNorm: 507044 1 Tablet(s) PO BID 03/24/2013 03/23/2013 In active Augmentin 875 mg-125 mg tablet RxNorm: 789672 1 Tablet(s) PO BID 03/12/2013 03/18/2013 Inactive Augmentin 875 mg-125 mg tablet RxNorm: 000248 1 Tablet(s) PO BID 03/12/2013 03/11/2013 Inactive ciprofloxacin 500 mg tablet RxNorm: 473647 1 Tablet(s) PO BID 03/11/2013 03/17/2013 Inactive ciprofloxacin 500 mg tablet RxNorm: 854975 1 Tablet(s) PO BID 03/11/2013 03/10/2013 Inactive Crestor 10 mg tablet RxNorm: 683451 1 Tablet(s) PO daily 02/10/2013 02/09/2013 Inactive Crestor 10 mg tablet RxNorm: 330845 Tablet(s) PO TAKE ONE TABLET BY MOUTH EV DEANNA DAY 02/10/2013 04/15/2014 Inactive Singulair 10 mg tablet RxNorm: 647784 Tablet(s) PO TAKE ONE TABLET BY MOUTH EV DEANNA DAY 02/04/2013 04/29/2014 Inactive Kenalog 40 mg/mL Heaven p for Injection RxNorm: 8384665 1 Milliliter(s) Inj 11/21/2012 11/21/2012 In active Pennsaid 1.5 % topic al drops RxNorm: 392743 15-20 Drop(s) TOP QID 10/28/2012 11/21/2013 Inactive Micardis 80 mg tablet RxNorm: 998945 1 Tablet(s) PO daily 10/28/2012 10/22/2013 Inactive put this on file please, quantitiy incre ase Pennsaid 1.5 % Topic al Drops RxNorm: 724302 15-20 Drop(s) TOP QID 10/28/2012 10/27/2012 Inactive diltiazem ER 180 mg capsule,extended release RxNorm: 899762 1 Capsule(s) PO daily 10/14/2012 10/08/2013 In active Pyridium 200 mg tablet RxNorm: 2965236 1 Tablet(s) PO Q8 PRN 09/11/2012 10/12/2014 Inactive Flagyl 500 mg tablet RxNorm: 570418 1 Tablet(s) PO TID 09/04/2012 09/10/2012 Inactive Macrobid 100 mg capsule RxNorm: 072034 1 Capsule(s) PO BID 09/03/2012 09/02/2012 Inactive Macrobid 100 mg capsule RxNorm: 084082 1 Capsule(s) PO BID 09/03/2012 09/09/2012 Inactive sulfamethoxazole-tri methoprim 800 mg-160 mg tablet RxNorm: 647403 1 Tablet(s) PO BID 08/05/2012 08/14/2012 Inactive Lasix 40 mg tablet RxNorm: 116299 1 Tablet(s) PO BID pt is taking extra la six x 3 days, then every sunday and sunday take two lasix pills. 07/15/2012 07/09/2013 Inactive Synthroid 50 mcg tablet RxNorm: 690871 1 Tablet(s) PO daily 07/15/2012 07/09/2013 Inactive do not substitute the generic levothyrox ine for the synthroid brand name.....she needs brand name synthroid. Klor-Con 10 mEq tabl et,extended release RxNorm: 722688 1 Tablet(s) PO BID 07/15/2012 03/23/2013 In active Singulair 10 mg tablet RxNorm: 681942 1 Tablet(s) PO daily 06/12/2012 02/03/2013 Inactive Lexapro 10 mg tablet RxNorm: 624958 1/2 Tablet(s) PO daily 05/10/2012 06/03/2013 Inactive ProAir HFA 90 mcg/ac tuation Aerosol Inhaler RxNorm: 023965 2 INH Q6 PRN 04/23/2012 01/17/2016 In active Lexapro 10 mg tablet RxNorm: 404180 1/2 Tablet(s) PO daily 04/19/2012 05/09/2012 Inactive metoprolol succinate ER 50 mg tablet,extended release 24 hr RxNorm: 451727 1 Tablet(s) PO daily 04/09/2012 04/09/2012 Inactive Klor-Con 10 10 mEq t ablet,extended release RxNorm: 683547 1 Tablet(s) PO daily 04/01/2012 07/14/2012 In active metoprolol succinate ER 50 mg tablet,extended release 24 hr RxNorm: 506314 1/2 Tablet(s) PO BID 03/11/2012 04/08/2012 Inactive clonidine 0.1 mg Tab RxNorm: 766748 1 Tablet(s) PO BID 02/19/2012 03/12/2012 Inactive clonidine 0.1 mg Tab RxNorm: 369109 1 Tablet(s) PO BID 02/19/2012 02/18/2012 Inactive Micardis 80 mg Tab RxNorm: 191964 1 Tablet(s) PO daily 02/14/2012 02/13/2012 Inactive Micardis 80 mg tablet RxNorm: 568674 1 Tablet(s) PO daily 02/14/2012 10/27/2012 Inactive Synthroid 50 mcg tablet RxNorm: 944607 1 Tablet(s) PO daily 02/12/2012 07/14/2012 Inactive Tekturna 300 mg Tab RxNorm: 4197835 1 Tablet(s) PO daily 02/12/2012 03/12/2012 Inactive Lasix 40 mg Tab RxNorm: 051792 1 Tablet(s) PO daily 12/18/2011 12/17/2011 Inactive Lasix 40 mg tablet RxNorm: 141294 1 Tablet(s) PO daily 12/18/2011 07/14/2012 Inactive Anusol-HC 25 mg Supp ository RxNorm: 7916954 1 Suppository RTL QD AY PRN 12/04/2011 04/19/2012 In active lactobacillus acidop hilus Cap RxNorm: 1 Capsule(s) PO BID 11/21/2011 11/20/2011 Inactive lactobacillus acidop hilus Cap RxNorm: 1 Capsule(s) PO BID 11/21/2011 11/20/2011 Inactive Cipro 500 mg Tab RxNorm: 689150 1 Tablet(s) PO BID 11/21/2011 03/12/2012 Inactive lactobacillus acidop hilus Cap RxNorm: 1 Capsule(s) PO BID 11/21/2011 11/27/2011 Inactive lactobacillus acidop hilus Cap RxNorm: 1 Capsule(s) PO BID 11/21/2011 11/20/2011 Inactive Cipro 500 mg Tab RxNorm: 450547 1 Tablet(s) PO BID 11/21/2011 11/20/2011 Inactive Lexapro 10 mg Tab RxNorm: 300725 1 Tablet(s) PO daily 11/13/2011 11/12/2011 Inactive Lexapro 10 mg tablet RxNorm: 880745 1 Tablet(s) PO daily 11/13/2011 04/18/2012 Inactive amlodipine 10 mg Tab RxNorm: 319065 1 Tablet(s) PO daily 10/09/2011 12/03/2011 Inactive amlodipine 5 mg Tab RxNorm: 496448 1 Tablet(s) PO daily 09/20/2011 12/04/2011 Inactive Rocephin 500 mg Solu tion for Injection RxNorm: 366657 Inj 08/3009/20/2011 Inactive metoprolol succinate ER 25 mg 24 hr Tab RxNorm: 677590 1 Tablet(s) PO QHS 08/30/2011 09/20/2011 In active Ambien 10 mg Tab RxNorm: 073001 1 Tablet(s) PO HS PRN 08/30/2011 04/19/2012 Inactive Augmentin 875 mg-125 mg Tab RxNorm: 481561 1 Tablet(s) PO BID 08/25/2011 09/20/2011 Inactive Augmentin 875 mg-125 mg Tab RxNorm: 861937 1 Tablet(s) PO BID 08/25/2011 08/24/2011 Inactive Rocephin 500 mg Solu tion for Injection RxNorm: 036372 Inj 08/2308/23/2011 Inactive Levaquin 500 mg Tab RxNorm: 097166 1 Tablet(s) PO daily 08/23/2011 08/30/2011 Inactive chlordiazepoxide-cli dinium 5 mg-2.5 mg Cap RxNorm: 097145 1 Capsule(s) PO BID 07/10/2011 04/19/2012 In active q 12 hours prn metoprolol succinate ER 100 mg 24 hr Tab RxNorm: 825465 1 Tablet(s) PO daily 05/29/2011 03/12/2012 In active Synthroid 50 mcg Tab RxNorm: 508431 1 Tablet(s) PO daily 05/15/2011 08/12/2011 Inactive Ambien CR 12.5 mg Tab RxNorm: 257144 1 Tablet(s) PO HS PRN 05/09/2011 08/30/2011 Inactive Ambien 10 mg Tab RxNorm: 736346 1 Tablet(s) PO QHS 05/09/2011 06/07/2011 Inactive Nexium 40 mg Cap RxNorm: 982878 1 Capsule(s) PO daily 05/04/2011 03/12/2012 Inactive the patient had tried pepcid, otc priolosec, RX omperazole, failed them all Bactrim DS 800 mg-16 0 mg Tab RxNorm: 351317 1 Tablet(s) PO BID 04/19/2011 08/30/2011 Inactive triamcinolone aceton margie 40 mg/mL Susp for Injection RxNorm: 1795228 1 Milliliter(s) Inj UD 04/19/2011 04/19/2011 Inactive aspirin 81 mg Tab, D elayed Release RxNorm: 844050 1 Tablet(s) PO daily No Start Date Active Centrum Silver Ultra Women's oral RxNorm: [address] art Date Active Probiotic & Acidophi jerilyn oral RxNorm: oral No Start D ate Active Fish Oil 1,000 mg Cap RxNorm: 1 Capsule(s) PO daily No Start Date Active Tylenol Extra Streng th 500 mg tablet RxNorm: 419268 1 Tablet(s) PO BID as needed for pain No Start Date Active 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 Device RxNorm: Miscellaneous 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, 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 No Start Date Active Cymbalta 30 mg Cap RxNorm: 089002 1 Capsule(s) PO daily No Start Date 03/12/2012 Inactive Nexium 40 mg Cap RxNorm: 128081 Capsule(s) PO No Start Date 05/03/2011 Inactive Benadryl 25 mg capsule RxNorm: 3725282 1 Capsule(s) PO QHS No Start Date 01/03/2017 Inactive Klor-Con 10 10 mEq t ablet,extended release RxNorm: 906701 1 Tablet(s) PO daily No Start Date 03/31/2012 Inactive Metamucil Oral RxNorm: Oral No Start Date 10/12/2014 Inactive amlodipine 10 mg Tab RxNorm: 892253 1 Tablet(s) PO daily No Start Date 10/08/2011 Inactive Norvasc 5 mg tablet RxNorm: 384836 1 Tablet(s) PO daily No Start Date 10/12/2014 Inactive Lasix 40 mg Tab RxNorm: 937871 1 Tablet(s) PO daily No Start Date 12/17/2011 Inactive diltiazem ER (XR/XT) 240 mg capsule,extended release,controlled RxNorm: 614812 1 Capsule(s) PO daily No Start Date 04/22/2012 Inactive Synthroid 50 mcg Tab RxNorm: 791670 1 Tablet(s) PO daily No Start Date 05/14/2011 Inactive Flagyl 500 mg tablet RxNorm: 238442 1 Tablet(s) PO No Start Date 09/03/2012 Inactive one after each loose bm limit 8 per day Boniva 150 mg Tab RxNorm: 011257 1 Tablet(s) PO UD No Start Date 08/30/2011 Inactive monthly Singulair 10 mg tablet RxNorm: 139284 1 Tablet(s) PO daily No Start Date 06/11/2012 Inactive folic acid Oral RxNorm: Oral No Start Date 03/12/2012 Inactive potassium chloride E R 10 mEq tablet,extended release RxNorm: 750425 1 Tablet(s) PO daily No Start Date 01/03/2017 Inactive Librium 10 mg Cap RxNorm: 740161 Capsule(s) PO UD No Start Date 03/12/2012 Inactive q 12 hours prn Crestor 10 mg tablet RxNorm: 641701 1 Tablet(s) PO daily No Start Date 02/09/2013 Inactive multivitamin Cap RxNorm: 1 Capsule(s) PO daily No Start Date 01/17/2016 Inactive metoprolol succinate ER 100 mg 24 hr Tab RxNorm: 717112 1 Tablet(s) PO daily No Start Date 05/28/2011 Inactive Zithromax Z-Hebert 250 mg tablet RxNorm: 104977 Tablet(s) PO UD No Start Date 12/22/2015 Inactive diltiazem ER 180 mg capsule,extended release RxNorm: 566898 1 Capsule(s) PO daily No Start Date 10/13/2012 Inactive Tekturna 300 mg Tab RxNorm: 0345871 1 Tablet(s) PO daily samples No Start Date 02/11/2012 Inactive ProAir HFA 90 mcg/ac tuation Aerosol Inhaler RxNorm: 580819 2 INH Q6 PRN No Start Date 04/22/2012 Inactive chlordiazepoxide-cli dinium 5 mg-2.5 mg Cap RxNorm: 245735 1 Capsule(s) PO PRN No Start Date 07/09/2011 Inactive q 12 hours prn Butrans 5 mcg/hour T ransderm Patch RxNorm: 697574 1 Patch TD weekly No Start Date 05/26/2012 Inactive Lactobacillus acidop hilus tablet RxNorm: 4 Tablet(s) PO daily No Start Date 01/03/2017 Inactive Librax (with clidini um) 5 mg-2.5 mg capsule RxNorm: 248804 1 Capsule(s) PO BID No Start Date 04/18/2012 Inactive Nexium 40 mg capsule ,delayed release RxNorm: 141789 Capsule(s) PO PRN No Start Date 10/12/2014 Inactive Premarin 0.625 mg/gr am Vaginal Cream RxNorm: 196182 Gram(s) VAG No Start Date 03/12/2012 Inactive three times a week, small amt to vaginal tissuesample given metoprolol succinate ER 50 mg tablet,extended release 24 hr RxNorm: 861609 1 Tablet(s) PO daily No Start Date 03/10/2012 Inactive Zithromax Z-Hebert 250 mg tablet RxNorm: 860045 Tablet(s) PO UD No Start Date 08/13/2014 Inactive albuterol sulfate HF A 90 mcg/actuation aerosol inhaler RxNorm: 5695240 1 or2 Puff(s) INH Q4 PRN No Start Date 05/10/2014 Inactive Xanax 0.25 mg Tab RxNorm: 818079 1/2-1 Tablet(s) PO Q8 PRN No Start Date 03/12/2012 Inactive metoprolol succinate ER 25 mg tablet,extended release 24 hr RxNorm: 212147 1 Tablet(s) PO daily No Start Date 04/20/2013 Inactive Zithromax Z-Hebert 250 mg tablet RxNorm: 911769 1 Tablet(s) PO UD No Start Date 08/10/2016 Inactive Z PACK DIRECTED calcium carbonate 60 0 mg (1,500 mg) Tab RxNorm: 629202 1 Tablet(s) PO BID No Start Date 01/03/2017 Inactive albuterol sulfate HF A 90 mcg/Actuation Aerosol Inhaler RxNorm: 728341 1-2 Puff(s) INH Q4 PRN No Start Date 03/11/2012 Inactive Vitamin D3 2,000 uni t capsule RxNorm: 257909 1 Capsule(s) PO daily No Start Date 10/12/2014 Inactive Colace 100 mg Cap RxNorm: 5888837 1 Capsule(s) PO BID No Start Date 01/17/2016 Inactive Neurontin 600 mg tablet RxNorm: 885027 1 Tablet(s) PO Q8 PRN No Start Date 06/09/2013 Inactive Lomotil 2.5 mg-0.025 mg tablet RxNorm: 4757365 1 Tablet(s) PO No Start Date 06/14/2014 Inactive one after each loose bm limit 8 per day Micardis 80 mg Tab RxNorm: 601408 1 Tablet(s) PO daily No Start Date 12/03/2011 Inactive Pyridium 200 mg tablet RxNorm: 5770461 1 Tablet(s) PO Q8 PRN No Start Date 09/10/2012 Inactive Medication Administered Medication Codes Instruc tions Start Date Status Kenalog 40 mg/mL suspension for injection RxNorm: 3291644 1Milliliter 01/04/2017 N o longer Active Kenalog 40 mg/mL suspension for injection RxNorm: 7219331 Milliliter 08/23/2016 No longer Active Rocephin 500 mg solution for injection RxNorm: 482092 1Milliliter 05/07/2014 N o longer Active Kenalog 40 mg/mL suspension for injection RxNorm: 9462833 Milliliter 12/26/2013 No longer Active Rocephin 500 mg solution for injection RxNorm: 677137 12/26/2013 No longer A ctive Kenalog 40 mg/mL suspension for injection RxNorm: 4710611 Milliliter 11/12/2013 No longer Active Rocephin 500 mg solution for injection RxNorm: 530477 1Milliliter 10/09/2013 N o longer Active Kenalog 40 mg/mL Susp for Injection RxNorm: 4944212 1Milliliter 11/21/2012 N o longer Active Rocephin 500 mg Solution for Injection RxNorm: 053145 08/23/2011 No longer A ctive triamcinolone acetonide 40 mg/mL Susp for Injection RxNorm: 7721757 1MilliliterUD 04/19/2011 No longer Active Immunizations Vaccine Codes Date Status Influenza CVX: 141 06/16 completed Pneumococcal CVX: 133 completed PPD Unknown 08/07/2014 completed Influenza CVX: 141 05/20 completed Influenza CVX: 141 06/11 completed zostavax CVX: 121 2012 completed Influenza CVX: 141 05/03 completed Influenza Unknown 2009 completed Assessments Condition Codes Effectiv e Dates Urinary tract [...] 11/12/2013 Laboratory exam ordered as part of [facility] general medical examination ICD-9: V72.62 11/12/2013 Acute [...] 28.8 pg 03/09/2016 Cbc With Differential Ord2 Hawkins% 8.5 % 03/09/2016 Cbc With Differential Ord2 MCHC 31.4 pg 03/09/2016 Cbc With Differential Ord2 Eos% 1.8 % 03/09/2016 Cbc With Differential Ord2 PLT 316 K/ul 03/09/2016 Cbc With Differential Ord2 Baso% 0.6 % 03/09/2016 Cbc With Differential Ord2 Neut ABS# 5.69 K/ul 03/09/2016 Cbc With Differential Ord2 RDW 13.6 % 03/09/2016 Cbc With Differential Ord2 Lymph ABS# 2.38 K/ul 03/09/2016 Cbc With Differential Ord2 Hawkins ABS# 0.8 K/ul 03/09/2016 Cbc With Differential Ord2 Eos ABS# 0.2 K/ul 03/09/2016 Cbc With Differential Ord2 Baso ABS# 0.1 K/ul 03/09/2016 Comp Metabolic Qwc564 NA 138 mEq/L 03/09/2016 Comp Metabolic Sri018 K 4.5 mEq/L 03/09/2016 Comp Metabolic Vvv081 CL 100 mEq/L 03/09/2016 Comp Metabolic Fvu973 CO2 33.0 mEq/L 03/09/2016 Comp Metabolic Axy550 AN ION GAP 10 03/09/2016 Comp Metabolic Tty762 GL UCOSE 94 mg/dL 03/09/2016 Comp Metabolic Jtj796 Cr eat 0.6 mg/dL 03/09/2016 Comp Metabolic Ezy426 eG FR 106 ml/min/1.73m2 02/24 Comp Metabolic Mid620 BUN 10 mg/dL 03/09/2016 Comp Metabolic Maq442 B/ C Ratio 17.2 Ratio 03/09/2016 Comp Metabolic Cqa217 CA LCIUM 9.2 mg/dL 03/09/2016 Comp Metabolic Oxc687 AL K PHOS 64 U/L 03/09/2016 Comp Metabolic Qyg419 T(SGOT) 20 U/L 03/09/2016 Comp Metabolic Ukx523 AL T(SGPT) 11 U/L 03/09/2016 Comp Metabolic Csp921 BI LI T 0.9 mg/dL 03/09/2016 Comp Metabolic Fqe554 AL BUMIN 4.0 g/dL 03/09/2016 Comp Metabolic Ciq373 TP RO 6.1 g/dL 03/09/2016 Comp Metabolic Suw407 GL OB 2.1 g/dL 03/09/2016 Comp Metabolic Mcr135 A/ G Ratio 1.9 Ratio 03/09/2016 Comp Metabolic Fqn061 Os mo 274 mOsmo 03/09/2016 Free T4 Dyz442 FREE T4 0.90 ng/dL 03/09/2016 Lipid Ord30 [...] hTSH II 3.25 uIU/mL 09/07/2015 Free T4 Zni492 FREE T4 0.79 ng/dL 09/07/2015 Comp Metabolic Jlp557 NA 137 mEq/L 09/07/2015 Comp Metabolic Int923 K 4.0 mEq/L 09/07/2015 Comp Metabolic Lyx027 CL 98 mEq/L 09/07/2015 Comp Metabolic Uqh459 CO2 30.0 mEq/L 09/07/2015 Comp Metabolic Rjg465 AN ION GAP 13 09/07/2015 Comp Metabolic Cze056 GL UCOSE 101 mg/dL 09/07/2015 Comp Metabolic Ief624 Cr eat 0.6 mg/dL 09/07/2015 Comp Metabolic Dfl182 eG FR 111 ml/min/1.73m2 08/27 Comp Metabolic Frk830 BUN 16 mg/dL 09/07/2015 Comp Metabolic Ybc517 B/ C Ratio 28.6 Ratio 09/07/2015 Comp Metabolic Rzg370 CA LCIUM 9.4 mg/dL 09/07/2015 Comp Metabolic Hor555 AL K PHOS 68 U/L 09/07/2015 Comp Metabolic Vte830 T(SGOT) 16 U/L 09/07/2015 Comp Metabolic Sxy000 AL T(SGPT) 12 U/L 09/07/2015 Comp Metabolic Xyd307 BI LI T 0.9 mg/dL 09/07/2015 Comp Metabolic Hcq559 AL BUMIN 4.1 g/dL 09/07/2015 Comp Metabolic Kas891 TP RO 6.5 g/dL 09/07/2015 Comp Metabolic Pbo051 GL OB 2.4 g/dL 09/07/2015 Comp Metabolic Lms397 A/ G Ratio 1.7 Ratio 09/07/2015 Comp Metabolic Zgl091 Os mo 275 mOsmo 09/07/2015 Cbc With [...] Differential Ord2 RDW 14.4 % 09/07/2015 TSH 8636601 TSH 0.920 uIU/ML 08/28/2014 CBC 5152186 WBC 12.5 10e9/L 08/28/2014 CBC 7403074 RBC 3.44 10e12/L 08/28/2014 CBC 0537980 HGB 10.3 g/dL 08/28/2014 CBC 9699855 HCT DET 33.9 % 08/28/2014 CBC 6677220 MCV 98.5 fL 08/28/2014 CBC 8372381 MCH 29.9 pg 08/28/2014 CBC 4580871 MCHC 30.4 g/dL 08/28/2014 CBC 6003406 PLT 412 10e9/L 08/28/2014 CBC 6035255 MPV 10.2 fL 08/28/2014 CBC 4017251 NNEKA % 68.5 % 08/28/2014 CBC 8130936 LY % 20.8 % 08/28/2014 CBC 3816029 MON % 9.9 % 08/28/2014 CBC 0047221 EOS % 0.6 % 08/28/2014 CBC 7559034 BASO % 0.2 % 08/28/2014 CBC 2447093 RDW 15.8 % 08/28/2014 CBC 6706983 ABS NNEKA 8.56 10e9/L 08/28/2014 CBC 6505596 ABS LYMPH 2.60 10e9/L 08/28/2014 CBC 4593160 ABS MONO 1.24 10e9/L 08/28/2014 CBC 7328658 ABS EOS 0.08 10e9/L 08/28/2014 CBC 1039232 ABS BASO 0.03 10e9/L 08/28/2014 CBC 4387766 RDW-SD 55.4 fL 08/28/2014 GFR CALC 1986239 GFR AA >60 ML/MIN 08/28/2014 GFR CALC 5387084 GFR NON -AA >60 ML/MIN 08/28/2014 LIPID GRP 5061094 HDL TE ST 69 MG/DL 08/28/2014 LIPID GRP TRIG 158 MG/DL 08/28/2014 LIPID GRP 7014818 TEST L DL 96 MG/DL 08/28/2014 LIPID GRP 1432036 CHOL 197 MG/DL 08/28/2014 LIPID GRP 7048375 RCHOL/ HDL 2.86 RATIO 08/28/2014 LIPID GRP NON-HD L CH 128 MG/DL 08/28/2014 CHEM 14 1974674 AST 14 U/L 08/28/2014 CHEM 14 0476680 ALT 13 IU/L 08/28/2014 CHEM 14 6911519 BUN 15 MG/DL 08/28/2014 CHEM 14 0402176 ALBUMIN 4.2 GM/DL 08/28/2014 CHEM 14 3405877 CHLORIDE 98 MMOL/L 08/28/2014 CHEM 14 9350386 BILI TOT 1.2 MG/DL 08/28/2014 CHEM 14 9733793 ALK PHOS 68 U/L 08/28/2014 CHEM 14 4924187 SODIUM 137 MMOL/L 08/28/2014 CHEM 14 8593156 CREATINI NE 0.68 MG/DL 08/28/2014 CHEM 14 7318929 CALCIUM 9.1 MG/DL 08/28/2014 CHEM 14 8470711 POTASSIUM 3.7 MMOL/L 08/28/2014 CHEM 14 3934728 PROT TOT 6.2 GM/DL 08/28/2014 CHEM 14 7752390 GLUCOSE 91 MG/DL 08/28/2014 CHEM 14 7846551 BICARB 31 MMOL/L 08/28/2014 CHEM 14 2854156 ANION GAP 8 MEQ/L 08/28/2014 FREE T4 7339206 FREE T4 1.44 NG/DL 08/28/2014 LIPID GRP HDL TE ST 73 MG/DL 04/16/2014 LIPID GRP TRIG 131 MG/DL 04/16/2014 LIPID GRP 7462366 TEST L DL 99 MG/DL 04/16/2014 LIPID GRP CHOL 198 MG/DL 04/16/2014 LIPID GRP 3848404 RCHOL/ HDL 2.71 RATIO 04/16/2014 LIPID GRP 6969579 NON-HD L CH 125 MG/DL 04/16/2014 CHEM 14 9429697 AST 17 U/L 04/14/2014 CHEM 14 7700722 ALT 17 IU/L 04/14/2014 CHEM 14 0316063 BUN 15 MG/DL 04/14/2014 CHEM 14 4066003 ALBUMIN 4.3 GM/DL 04/14/2014 CHEM 14 2611982 CHLORIDE 96 MMOL/L 04/14/2014 CHEM 14 1128297 BILI TOT 0.9 MG/DL 04/14/2014 CHEM 14 4224829 ALK PHOS 65 U/L 04/14/2014 CHEM 14 6341862 SODIUM 135 MMOL/L 04/14/2014 CHEM 14 3108606 CREATINI NE 0.69 MG/DL 04/14/2014 CHEM 14 1186513 CALCIUM 9.5 MG/DL 04/14/2014 CHEM 14 1788637 POTASSIUM 4.1 MMOL/L 04/14/2014 CHEM 14 9426620 PROT TOT 6.6 GM/DL 04/14/2014 CHEM 14 9801547 GLUCOSE 104 MG/DL 04/14/2014 CHEM 14 9394183 BICARB 34 MMOL/L 04/14/2014 CHEM 14 4335558 ANION GAP 5 MEQ/L 04/14/2014 A1C HPLC 9458230 A1C HPLC 00126-9 5.0 % 04/14/2014 TSH 2420266 TSH 2.140 uIU/ML 04/14/2014 FREE T4 0036195 FREE T4 1.56 NG/DL 04/14/2014 GFR CALC 1832921 GFR AA >60 ML/MIN 04/14/2014 GFR CALC 1261082 GFR NON -AA >60 ML/MIN 04/14/2014 CBC 9623902 WBC 12.8 10e9/L 04/14/2014 CBC 2949259 RBC 4.44 10e12/L 04/14/2014 CBC 3718003 HGB 13.2 g/dL 04/14/2014 CBC 5548488 HCT DET 41.4 % 04/14/2014 CBC 3612637 MCV 93.2 fL 04/14/2014 CBC 8728427 MCH 29.7 pg 04/14/2014 CBC 6213831 MCHC 31.9 g/dL 04/14/2014 CBC 0228769 PLT 383 10e9/L 04/14/2014 CBC 7430735 MPV 10.1 fL 04/14/2014 CBC 3461424 NNEKA % 65.5 % 04/14/2014 CBC 2253938 LY % 23.0 % 04/14/2014 CBC 7174475 MON % 9.9 % 04/14/2014 CBC 2991111 EOS % 1.3 % 04/14/2014 CBC 3284664 BASO % 0.3 % 04/14/2014 CBC 0594173 RDW 13.7 % 04/14/2014 CBC 2024701 ABS NNEKA 8.38 10e9/L 04/14/2014 CBC 5368254 ABS LYMPH 2.94 10e9/L 04/14/2014 CBC 6602206 ABS MONO 1.27 10e9/L 04/14/2014 CBC 2377389 ABS EOS 0.17 10e9/L 04/14/2014 CBC 9635037 ABS BASO 0.04 10e9/L 04/14/2014 CBC 9113485 RDW-SD 45.9 fL 04/14/2014 A1C HPLC 5740559 A1C HPLC 64521-2 4.9 % 11/13/2013 CHEM 14 6216509 AST 15 U/L 11/12/2013 CHEM 14 6006814 ALT 14 IU/L 11/12/2013 CHEM 14 9304236 BUN 14 MG/DL 11/12/2013 CHEM 14 6167328 ALBUMIN 4.3 GM/DL 11/12/2013 CHEM 14 3452655 CHLORIDE 101 MMOL/L 11/12/2013 CHEM 14 4383276 BILI TOT 0.9 MG/DL 11/12/2013 CHEM 14 0070586 ALK PHOS 67 U/L 11/12/2013 CHEM 14 5208641 SODIUM 139 MMOL/L 11/12/2013 CHEM 14 4455669 CREATINI NE 0.67 MG/DL 11/12/2013 CHEM 14 1127635 CALCIUM 9.5 MG/DL 11/12/2013 CHEM 14 2249273 POTASSIUM 4.1 MMOL/L 11/12/2013 CHEM 14 9384031 PROT TOT 6.5 GM/DL 11/12/2013 CHEM 14 1530485 GLUCOSE 102 MG/DL 11/12/2013 CHEM 14 6020368 BICARB 30 MMOL/L 11/12/2013 CHEM 14 7333150 ANION GAP 8 MEQ/L 11/12/2013 GFR CALC 2352790 GFR AA >60 ML/MIN 11/12/2013 GFR CALC 8454350 GFR NON -AA >60 ML/MIN 11/12/2013 TSH 9010291 TSH 2.445 uIU/ML 11/12/2013 FREE T4 9848041 FREE T4 1.09 NG/DL 11/12/2013 CBC 5612898 WBC 7.6 10e9/L 11/12/2013 CBC 8327290 RBC 4.42 10e12/L 11/12/2013 CBC 2970716 HGB 13.1 g/dL 11/12/2013 CBC 4668140 HCT DET 41.2 % 11/12/2013 CBC 4720431 MCV 93.2 fL 11/12/2013 CBC 0227136 MCH 29.6 pg 11/12/2013 CBC 4960088 MCHC 31.8 g/dL 11/12/2013 CBC 6347735 PLT 314 10e9/L 11/12/2013 CBC 2404505 MPV 10.4 fL 11/12/2013 CBC 6734055 NNEKA % 59.8 % 11/12/2013 CBC 0840109 LY % 28.1 % 11/12/2013 CBC 6064320 MON % 9.5 % 11/12/2013 CBC 4014547 EOS % 1.8 % 11/12/2013 CBC 6013160 BASO % 0.8 % 11/12/2013 CBC 2082255 RDW 13.8 % 11/12/2013 CBC 0683606 ABS NNEKA 4.54 10e9/L 11/12/2013 CBC 9458865 ABS LYMPH 2.14 10e9/L 11/12/2013 CBC 6539503 ABS MONO 0.72 10e9/L 11/12/2013 CBC 7619028 ABS EOS 0.14 10e9/L 11/12/2013 CBC 8063923 ABS BASO 0.06 10e9/L 11/12/2013 CBC 5266891 RDW-SD 46.0 fL 11/12/2013 LIPID GRP HDL TE ST 66 MG/DL 11/12/2013 LIPID GRP TRIG 130 MG/DL 11/12/2013 LIPID GRP 6684027 TEST L DL 108 MG/DL 11/12/2013 LIPID GRP 1600904 CHOL 200 MG/DL 11/12/2013 LIPID GRP 6748026 RCHOL/ HDL 3.03 RATIO 11/12/2013 HS ENE ZOS 0791649 HS VA R ZOS IMMUNE 04/04/2013 A1C 0612673 A1C HPLC 20976-3 5.2 % 04/03/2013 GFR CALC 9745790 GFR AA >60 ML/MIN 03/31/2013 GFR CALC 1714248 GFR NON -AA >60 ML/MIN 03/31/2013 TSH 1394484 TSH 2.689 uIU/ML 03/31/2013 LIPID GRP HDL TE ST 63 MG/DL 03/31/2013 LIPID GRP TRIG 157 MG/DL 03/31/2013 LIPID GRP TEST L DL 98 MG/DL 03/31/2013 LIPID GRP CHOL 192 MG/DL 03/31/2013 LIPID GRP RCHOL/ HDL 3.05 RATIO 03/31/2013 FREE T4 8406037 FREE T4 1.19 NG/DL 03/31/2013 CHEM 14 2965055 AST 16 U/L 03/31/2013 CHEM 14 1843042 ALT 12 IU/L 03/31/2013 CHEM 14 9391417 BUN 17 MG/DL 03/31/2013 CHEM 14 9492176 ALBUMIN 4.5 GM/DL 03/31/2013 CHEM 14 8926734 CHLORIDE 98 MMOL/L 03/31/2013 CHEM 14 6675020 BILI TOT 0.7 MG/DL 03/31/2013 CHEM 14 5333184 ALK PHOS 53 U/L 03/31/2013 CHEM 14 1279077 SODIUM 137 MMOL/L 03/31/2013 CHEM 14 1791543 CREATINI NE 0.66 MG/DL 03/31/2013 CHEM 14 8591029 CALCIUM 9.6 MG/DL 03/31/2013 CHEM 14 1429399 POTASSIUM 4.2 MMOL/L 03/31/2013 CHEM 14 3332951 PROT TOT 6.7 GM/DL 03/31/2013 CHEM 14 5331606 GLUCOSE 101 MG/DL 03/31/2013 CHEM 14 9175444 BICARB 33 MMOL/L 03/31/2013 CHEM 14 3267065 ANION GAP 6 MEQ/L 03/31/2013 CBC 9118891 WBC 7.5 10e9/L 03/31/2013 CBC 7592781 RBC 4.39 10e12/L 03/31/2013 CBC 0687173 HGB 13.0 g/dL 03/31/2013 CBC 8575154 HCT DET 40.2 % 03/31/2013 CBC 4491675 MCV 91.6 fL 03/31/2013 CBC 7100002 MCH 29.6 pg 03/31/2013 CBC 2130596 MCHC 32.3 g/dL 03/31/2013 CBC 9215857 PLT 305 10e9/L 03/31/2013 CBC 6589021 MPV 10.4 fL 03/31/2013 CBC 3086184 NNEKA % 56.8 % 03/31/2013 CBC 8176828 LY % 30.3 % 03/31/2013 CBC 6365487 MON % 9.8 % 03/31/2013 CBC 2431486 EOS % 2.3 % 03/31/2013 CBC 6725802 BASO % 0.8 % 03/31/2013 CBC 4443338 RDW 13.2 % 03/31/2013 CBC 8516149 ABS NNEKA 4.26 10e9/L 03/31/2013 CBC 7344304 ABS LYMPH 2.27 10e9/L 03/31/2013 CBC 3320667 ABS MONO 0.74 10e9/L 03/31/2013 CBC 8485263 ABS EOS 0.17 10e9/L 03/31/2013 CBC 3332681 ABS BASO 0.06 10e9/L 03/31/2013 CBC 8086820 RDW-SD 43.2 fL 03/31/2013 LIPID GRP HDL TE ST 49 MG/DL 09/11/2012 LIPID GRP TRIG 134 MG/DL 09/11/2012 LIPID GRP TEST L DL 81 MG/DL 09/11/2012 LIPID GRP CHOL 157 MG/DL 09/11/2012 LIPID GRP RCHOL/ HDL 3.20 RATIO 09/11/2012 TSH 5495332 TSH 2.118 uIU/ML 09/11/2012 CBC 9782233 WBC 7.5 10e9/L 09/11/2012 CBC 3528160 RBC 3.99 10e12/L 09/11/2012 CBC 8329616 HGB 11.7 g/dL 09/11/2012 CBC 3894147 HCT DET 37.7 % 09/11/2012 CBC 7955457 MCV 94.5 fL 09/11/2012 CBC 8282584 MCH 29.3 pg 09/11/2012 CBC 0198315 MCHC 31.0 g/dL 09/11/2012 CBC 5375224 PLT 384 10e9/L 09/11/2012 CBC 6898723 MPV 11.0 fL 09/11/2012 CBC 4179689 NNEKA % 51.7 % 09/11/2012 CBC 4413138 LY % 35.2 % 09/11/2012 CBC 7076440 MON % 10.4 % 09/11/2012 CBC 1993203 EOS % 2.3 % 09/11/2012 CBC 9863746 BASO % 0.4 % 09/11/2012 CBC 4167215 RDW 14.2 % 09/11/2012 CBC 9185942 ABS NNEKA 3.88 10e9/L 09/11/2012 CBC 8646366 ABS LYMPH 2.64 10e9/L 09/11/2012 CBC 3232884 ABS MONO 0.78 10e9/L 09/11/2012 CBC 1258155 ABS EOS 0.17 10e9/L 09/11/2012 CBC 0638682 ABS BASO 0.03 10e9/L 09/11/2012 CBC 2807556 RDW-SD 47.1 fL 09/11/2012 CHEM 14 4233657 AST 16 U/L 09/11/2012 CHEM 14 5029632 ALT 15 IU/L 09/11/2012 CHEM 14 3591763 BUN 11 MG/DL 09/11/2012 CHEM 14 5322443 ALBUMIN 4.2 GM/DL 09/11/2012 CHEM 14 7481148 CHLORIDE 101 MMOL/L 09/11/2012 CHEM 14 0252027 BILI TOT 0.8 MG/DL 09/11/2012 CHEM 14 9320203 ALK PHOS 57 U/L 09/11/2012 CHEM 14 9480274 SODIUM 141 MMOL/L 09/11/2012 CHEM 14 1655163 CREATINI NE 0.62 MG/DL 09/11/2012 CHEM 14 1238932 CALCIUM 9.5 MG/DL 09/11/2012 CHEM 14 7498343 POTASSIUM 4.7 MMOL/L 09/11/2012 CHEM 14 1657804 PROT TOT 6.6 GM/DL 09/11/2012 CHEM 14 7215561 GLUCOSE 90 MG/DL 09/11/2012 CHEM 14 6116013 BICARB 32 MMOL/L 09/11/2012 CHEM 14 5169687 ANION GAP 8 MEQ/L 09/11/2012 A1C HPLC 0714611 A1C HPLC 66984-9 4.5 % 09/11/2012 GFR CALC 6032349 GFR AA >60 ML/MIN 09/11/2012 GFR CALC 7430085 GFR NON -AA >60 ML/MIN 09/11/2012 FREE T4 3219180 FREE T4 1.30 NG/DL 09/11/2012 BMP 1181979 GLUCOSE 93 MG/DL 04/16/2012 BMP 8702418 CREATININE 0.64 MG/DL 04/16/2012 BMP BUN 12 MG/DL 04/16/2012 BMP SODIUM 139 MMOL/L 04/16/2012 BMP 2483249 POTASSIUM 4.1 MMOL/L 04/16/2012 BMP CHLORIDE 99 MMOL/L 04/16/2012 BMP BICARB 32 MMOL/L 04/16/2012 BMP ANION GAP 8 MEQ/L 04/16/2012 BMP CALCIUM 9.8 MG/DL 04/16/2012 CBC 1451563 WBC 8.5 10e9/L 04/16/2012 CBC 0086880 RBC 3.98 10e12/L 04/16/2012 CBC 3897993 HGB 11.5 g/dL 04/16/2012 CBC 0385884 HCT DET 36.7 % 04/16/2012 CBC 9802894 MCV 92.2 fL 04/16/2012 CBC 9532520 MCH 28.9 pg 04/16/2012 CBC 1028447 MCHC 31.3 g/dL 04/16/2012 CBC 1800868 PLT 321 10e9/L 04/16/2012 CBC 5407302 MPV 10.2 fL 04/16/2012 CBC 1344521 NNEKA % 64.3 % 04/16/2012 CBC 2073907 LY % 24.3 % 04/16/2012 CBC 0078364 MON % 9.0 % 04/16/2012 CBC 8392034 EOS % 1.9 % 04/16/2012 CBC 5933531 BASO % 0.5 % 04/16/2012 CBC 2736897 RDW 13.7 % 04/16/2012 CBC 6536731 ABS NNEKA 5.47 10e9/L 04/16/2012 CBC 1689369 ABS LYMPH 2.07 10e9/L 04/16/2012 CBC 7439828 ABS MONO 0.77 10e9/L 04/16/2012 CBC 5514450 ABS EOS 0.16 10e9/L 04/16/2012 CBC 9394068 ABS BASO 0.04 10e9/L 04/16/2012 CBC 2478127 RDW-SD 44.6 fL 04/16/2012 GFR CALC 3696205 GFR AA >60 ML/MIN 04/16/2012 GFR CALC 1204017 GFR NON -AA >60 ML/MIN 04/16/2012 URINALYSIS NONAUTO W/O SCOPE 21693 Specific [place] 1.015 DateTime(Free Text in Aprima) URINALYSIS NONAUTO W/O SCOPE 81521 PH 6.0 DateTime(Free Jim t in Apr) URINALYSIS NONAUTO W/O SCOPE 01207 GLUCOSE neg DateTime(Free Jim t in Apr) URINALYSIS NONAUTO W/O SCOPE 87961 Protein neg DateTime(Free Jim t in Apr[employer]) URINALYSIS NONAUTO W/O SCOPE 47741 Blood 1+ DateTime(Free Text in Apr[employer]) URINALYSIS NONAUTO W/O SCOPE 44266 Bilirubin neg DateTime(Free Jim t in Aprima) URINALYSIS NONAUTO W/O SCOPE 07228 Ketones neg DateTime(Free Jim t in Apr[employer]) URINALYSIS NONAUTO W/O SCOPE 86721 Urobilinogen neg DateTime(Free Text in Apr[employer]) URINALYSIS NONAUTO W/O SCOPE 91792 Nitrite positive DateTime(Madi e Text in ) URINALYSIS NONAUTO W/O SCOPE 83830 Leukocytes 1+ DateTime(Free Text in Apr) UA 99755 Specific [place] 1.015 DateTime(Free Text in Apr ) UA 73090 PH 5 DateTime(Free Text in Apr ) UA 79632 GLUCOSE neg DateTime(Free Text in Aprima ) UA 07956 Protein neg DateTime(Free Text in Aprima ) UA 87665 Blood neg DateTime(Free Text in Apr ) UA 01122 Bilirubin neg DateTime(Free Text in Apr ) UA 20640 Ketones neg DateTime(Free Text in Aprima ) UA 78426 Urobilinogen neg DateTime(Free Text in Aprima ) UA 64457 Nitrite neg DateTime(Free Text in Apr ) UA 05748 Leukocytes neg DateTime(Free Text in Apr ) URINALYSIS NONAUTO W/O SCOPE 39161 Specific [place] 1.010 DateTime(Free Text in Apr) URINALYSIS NONAUTO W/O SCOPE 33969 PH 5.0 DateTime(Free Jim t in Apr) URINALYSIS NONAUTO W/O SCOPE 31514 GLUCOSE NEG DateTime(Free Jim t in Apr) URINALYSIS NONAUTO W/O SCOPE 88992 Protein NEG DateTime(Free Jim t in Apr[employer]) URINALYSIS NONAUTO W/O SCOPE 79763 Blood NEG DateTime(Free Jim t in Apr[employer]) URINALYSIS NONAUTO W/O SCOPE 49762 Bilirubin NEG DateTime(Free Jim t in Apr[employer]) URINALYSIS NONAUTO W/O SCOPE 18599 Ketones NEG DateTime(Free Jim t in Aprima) URINALYSIS NONAUTO W/O SCOPE 62190 Urobilinogen NEG DateTime(Free Text in Apr[employer]) URINALYSIS NONAUTO W/O SCOPE 56316 Nitrite NEG DateTime(Free Jim t in Apr[employer]) URINALYSIS NONAUTO W/O SCOPE 72780 Leukocytes ++ DateTime(Free Text in Apr[employer]) URINALYSIS NONAUTO W/O SCOPE 81712 Specific [place] 1.010 DateTime(Free Text in Aprima) URINALYSIS NONAUTO W/O SCOPE 39509 PH 6.0 DateTime(Free Jim t in Aprima) URINALYSIS NONAUTO W/O SCOPE 30006 GLUCOSE NEG DateTime(Free Jim t in Aprima) URINALYSIS NONAUTO W/O SCOPE 90725 Protein NEG DateTime(Free Jim t in Aprima) URINALYSIS NONAUTO W/O SCOPE 04096 Blood NEG DateTime(Free Jim t in Apr[employer]) URINALYSIS NONAUTO W/O SCOPE 84455 Bilirubin NEG DateTime(Free Jim t in Apr[employer]) URINALYSIS NONAUTO W/O SCOPE 54372 Ketones NEG DateTime(Free Jim t in Apr[employer]) URINALYSIS NONAUTO W/O SCOPE 14193 Urobilinogen NEG DateTime(Free Text in Apr[employer]) URINALYSIS NONAUTO W/O SCOPE 44327 Nitrite NEG DateTime(Free Jim t in Apr[employer]) URINALYSIS NONAUTO W/O SCOPE 97353 Leukocytes NEG DateTime(Free Text in Apr[employer]) URINALYSIS NONAUTO W/O SCOPE 78599 Specific [place] 1.010 DateTime(Free Text in Apr[employer]) URINALYSIS NONAUTO W/O SCOPE 78209 PH 5 DateTime(Free Text in Apr[employer]) URINALYSIS NONAUTO W/O SCOPE 30197 GLUCOSE neg DateTime(Free Jim t in Aprima) URINALYSIS NONAUTO W/O SCOPE 72973 Protein neg DateTime(Free Jim t in Apr[employer]) URINALYSIS NONAUTO W/O SCOPE 09937 Blood neg DateTime(Free Jim t in Aprima) URINALYSIS NONAUTO W/O SCOPE 46195 Bilirubin neg DateTime(Free Jim t in Aprima) URINALYSIS NONAUTO W/O SCOPE 67597 Ketones neg DateTime(Free Jim t in Aprima) URINALYSIS NONAUTO W/O SCOPE 40796 Urobilinogen neg DateTime(Free Text in Apr[employer]) URINALYSIS NONAUTO W/O SCOPE 61935 Nitrite neg DateTime(Free Jim t in Aprima) URINALYSIS NONAUTO W/O SCOPE 86369 Leukocytes 1+ DateTime(Free Text in [employer]) URINALYSIS NONAUTO W/O SCOPE 12869 Specific [place] 1.015 DateTime(Free Text in [employer]) URINALYSIS NONAUTO W/O SCOPE 05454 PH 5 DateTime(Free Text in [employer]) URINALYSIS NONAUTO W/O SCOPE 24311 GLUCOSE neg DateTime(Free Jim t in [employer]) URINALYSIS NONAUTO W/O SCOPE 95212 Protein neg DateTime(Free Jim t in [employer]) URINALYSIS NONAUTO W/O SCOPE 67392 Blood neg DateTime(Free Jim t in [employer]) URINALYSIS NONAUTO W/O SCOPE 53607 Bilirubin neg DateTime(Free Jim t in [employer]) URINALYSIS NONAUTO W/O SCOPE 45766 Ketones neg DateTime(Free Jim t in [employer]) URINALYSIS NONAUTO W/O SCOPE 27874 Urobilinogen neg DateTime(Free Text in [employer]) URINALYSIS NONAUTO W/O SCOPE 51590 Nitrite neg DateTime(Free Jim t in [employer]) URINALYSIS NONAUTO W/O SCOPE 42262 Leukocytes neg DateTime(Free Text in [employer]) URINALYSIS NONAUTO W/O SCOPE 58106 Specific [place] 1.015 DateTime(Free Text in [employer]) URINALYSIS NONAUTO W/O SCOPE 82793 PH 7 DateTime(Free Text in [employer]) URINALYSIS NONAUTO W/O SCOPE 39409 GLUCOSE DateTime(Free Text i n [employer]) URINALYSIS NONAUTO W/O SCOPE 87584 Protein DateTime(Free Text i n [employer]) URINALYSIS NONAUTO W/O SCOPE 83009 Blood DateTime(Free Text i n [employer]) URINALYSIS NONAUTO W/O SCOPE 06313 Bilirubin DateTime(Free Text i n [employer]) URINALYSIS NONAUTO W/O SCOPE 71168 Ketones DateTime(Free Text i n [employer]) URINALYSIS NONAUTO W/O SCOPE 37619 Urobilinogen DateTime(Free Text in ) URINALYSIS NONAUTO W/O SCOPE 82915 Nitrite DateTime(Free Text i n ) URINALYSIS NONAUTO W/O SCOPE 36188 Leukocytes DateTime(Fr ee Text in ) UA 23561 Specific [place] 6 DateTime(Free Text in ) UA 25215 PH 1.020 DateTime(Free Text in ) UA 52051 GLUCOSE N DateTime(Free Text in ) UA 46780 Protein N DateTime(Free Text in ) UA 87975 Blood N DateTime(Free Text in ) UA 11683 Bilirubin N DateTime(Free Text in ) UA 46191 Ketones N DateTime(Free Text in ) UA 65990 Urobilinogen N DateTime(Free Text in ) UA 79577 Nitrite POSITIVE DateTime(Free Text in ma) UA 74257 Leukocytes SMALL DateTime(Free Text in ) Review [...] Procedure Codes Date THER/PROPH/DIAG INJ SC/IM CPT-4: 58690Nzwvkee 01/04/2017 TRIAMCINOLONE ACET I [place] NOS CPT-4: R9751Uvbyyii 01/04/2017 TRIAMCINOLONE ACET I [place] NOS CPT-4: M4957Bzyzawe 08/23/2016 THER/PROPH/DIAG INJ SC/IM CPT-4: 13445Shahxqa 08/23/2016 ROUTINE VENIPUNCTURE CPT-4: 32172Uukhzqq 08/28/2014 ADMIN INFLUENZA VIRU S VAC Assigned to/Yancy Howell CPT-4: N5632Lsvdour 05/20/2014 FLU VAC NO PRSV 4 VA L 3 YRS+ CPT-4: 24626Xlnvtwz 05/20/2014 URINALYSIS NONAUTO W /O SCOPE CPT-4: 02075Qxrdywl 05/07/2014 ROCEPHIN, PER 250 MG CPT-4: F0259Ryedivt 05/07/2014 ROUTINE VENIPUNCTURE CPT-4: 22654Sduktya 04/14/2014 DESTRUCT PREMALG LES ION CPT-4: 75765Nebtfqa 01/27/2014 DESTRUCT PREMALG LES 2-14 CPT-4: 01886Ibjqnny 01/27/2014 ROCEPHIN, PER 250 MG CPT-4: X4294Jqvkhdv 12/26/2013 TRIAMCINOLONE ACET I [place] NOS CPT-4: Y9112Ssvuuva 12/26/2013 TRIAMCINOLONE ACET I [place] NOS CPT-4: Y0862Jeknmby 11/12/2013 ROUTINE VENIPUNCTURE CPT-4: 43790Jxstisg 11/12/2013 ROCEPHIN, PER 250 MG CPT-4: R9359Hynsfab 10/09/2013 ROUTINE VENIPUNCTURE CPT-4: 07381Xeckyea 03/31/2013 URINALYSIS NONAUTO W /O SCOPE CPT-4: 62375Afwnfdy 03/21/2013 TRIAMCINOLONE ACET I [place] NOS CPT-4: I4363Ehlxtvl 11/21/2012 URINALYSIS NONAUTO W /O SCOPE CPT-4: 17271Vsuwvyh 09/30/2012 URINALYSIS NONAUTO W /O SCOPE CPT-4: 94065Pabwprd 09/11/2012 ROUTINE VENIPUNCTURE CPT-4: 50950Yjrpxms 09/11/2012 PRESCRIP TRANSMIT A ERX SY CPT-4: J7405Wwfimrv 08/05/2012 ADMIN INFLUENZA VIRU S VAC CPT-4: Q6131Ccqlggw 05/03/2012 FLULAVAL VACC, 3 YRS & >, IM CPT-4: W6400Qjrpcaf 05/03/2012 EXC TR-EXT B9+ANA 0 .6-1 CM CPT-4: 21258Ndrhniv 04/23/2012 ROUTINE VENIPUNCTURE CPT-4: 41188Mqezkau 04/16/2012 ROUTINE VENIPUNCTURE CPT-4: 33432Vfdeuow 12/21/2011 PRESCRIP TRANSMIT A ERX SY CPT-4: Q8295Yfmwkia 12/04/2011 URINALYSIS NONAUTO W /O SCOPE CPT-4: 69859Ipmyepa 12/01/2011 URINALYSIS NONAUTO W /O SCOPE CPT-4: 59420Fgrdbxg 11/20/2011 PRESCRIP TRANSMIT A ERX SY CPT-4: K7553Fuaqqeo 09/20/2011 URINALYSIS NONAUTO W /O SCOPE CPT-4: 45191Nbgkezb 09/06/2011 ROCEPHIN, PER 250 MG CPT-4: W6299Agzykes 08/30/2011 THER/PROPH/DIAG INJ SC/IM CPT-4: 66960Jezxrpt 08/30/2011 ROUTINE VENIPUNCTURE CPT-4: 47492Kjbewzs 08/30/2011 PRESCRIP TRANSMIT A ERX SY CPT-4: E3901Khrcjwj 08/30/2011 ROCEPHIN, PER 250 MG CPT-4: W7105Jtkskqt 08/23/2011 THER/PROPH/DIAG INJ SC/IM CPT-4: 14523Ffoktsb 08/23/2011 URINALYSIS NONAUTO W /O SCOPE CPT-4: 78262Whqnrsy 08/23/2011 PRESCRIP TRANSMIT A ERX SY CPT-4: R0384Jwmfyqc 08/23/2011 ROUTINE VENIPUNCTURE CPT-4: 93775Mknttqn 05/04/2011 PRESCRIP TRANSMIT A ERX SY CPT-4: A7866Fmewhda 05/04/2011 TRIAMCINOLONE ACET I [place] NOS CPT-4: A7629Trwmcdg 04/19/2011 THER/PROPH/DIAG INJ SC/IM CPT-4: 55026Brarfab 04/19/2011 PRESCRIP TRANSMIT A ERX SY CPT-4: D8229Bdlozdw 04/19/2011 Vital Signs Date Vital 02/05/2017 Blood Pressure 1: 146/74 Code: 8480-6 Heart Rate 1: 52 bpm SpO2: 95% Temperature: 36.5 (C ) / 97.7 (F) 02/02/2017 Blood Pressure 1: 152/72 Code: 8480-6 BMI: 39.7 Code: 54788-4 Heart Rate 1: 58 bpm Height: 5'3" SpO2: 95% Weight: 224 lbs 01/15/2017 Blood Pressure 1: 148/70 Code: 8480-6 Heart Rate 1: 65 bpm Height: SpO2: 96% Weight: 01/04/2017 Blood Pressure 1: 132/60 Code: 8480-6 BMI: 39.9 Code: 26054-8 Heart Rate 1: 57 bpm Height: 5'3" SpO2: 95% Weight: 225 lbs 09/07/2016 Blood Pressure 1: 144/70 Code: 8480-6 BMI: 37.6 Code: 34337-8 Heart Rate 1: 50 bpm Height: 5'3" SpO2: 96% Weight: 212 lbs 07/06/2016 Blood Pressure 1: 134/64 Code: 8480-6 BMI: 38.6 Code: 77368-1 Heart Rate 1: 60 bpm Height: 5'3" SpO2: 94% Weight: 218 lbs 06/16/2016 Blood Pressure 1: 140/80 Code: 8480-6 06/08/2016 Blood Pressure 1: 150/76 Code: 8480-6 BMI: 38.4 Code: 10554-7 Heart Rate 1: 60 bpm Height: 5'3" SpO2: 96% Weight: 217 lbs 04/17/2016 Blood Pressure 1: 150/70 Code: 8480-6 Heart Rate 1: 63 bpm SpO2: 93% 04/06/2016 Blood Pressure 1: 154/52 Code: 8480-6 BMI: 38.6 Code: 55132-8 Heart Rate 1: 54 bpm Height: 5'3" SpO2: 95% Weight: 218 lbs 03/10/2016 Blood Pressure 1: 160/64 Code: 8480-6 03/09/2016 Blood Pressure 1: 152/78 Code: 8480-6 BMI: 38.8 Code: 94946-7 Heart Rate 1: 63 bpm Height: 5'3" SpO2: 92% Weight: 219 lbs 01/18/2016 Blood Pressure 1: 144/72 Code: 8480-6 BMI: 39.0 Code: 06928-1 Heart Rate 1: 68 bpm Height: 5'3" SpO2: 93% Weight: 220 lbs 09/09/2015 Blood Pressure 1: 126/68 Code: 8480-6 BMI: 39.0 Code: 59745-2 Height: 5'3" SpO2: 94% Weight: 220 lbs 12/25/2014 Blood Pressure 1: 138/68 Code: 8480-6 BMI: 37.7 Code: 80579-8 Heart Rate 1: 68 bpm Height: 5'3" SpO2: 97% Weight: 213 lbs 10/13/2014 Blood Pressure 1: 118/68 Code: 8480-6 BMI: 39.3 Code: 99416-2 Heart Rate 1: 54 bpm Height: 5'3" SpO2: 98% Weight: 222 lbs 08/28/2014 Blood Pressure 1: 140/62 Code: 8480-6 Heart Rate 1: 60 bpm Weight: 212 lbs 08/07/2014 Blood Pressure 1: 138/62 Code: 8480-6 05/20/2014 [place] rature: 35.5 (C) / 95.9 (F) 05/07/2014 Blood Pressure 1: 148/70 Code: 8480-6 BMI: 38.6 Code: 58720-4 Heart Rate 1: 61 bpm Height: 5'3" SpO2: 96% Weight: 218 lbs 04/16/2014 Blood Pressure 1: 142/68 Code: 8480-6 BMI: 37.6 Code: 79375-8 Heart Rate 1: 58 bpm Height: 5'3" Weight: 212 lbs 01/27/2014 Blood Pressure 1: 122/62 Code: 8480-6 Blood Pressure 2: 118/60 Code: 8480-6 Heart Rate 1: 60 bpm Weight: 210 lbs 01/21/2014 Blood Pressure 1: 130/62 Code: 8480-6 BMI: 37.2 Code: 75515-1 Heart Rate 1: 68 bpm Height: 5'3" SpO2: 97% Weight: 210 lbs 01/07/2014 Blood Pressure 1: 108/58 Code: 8480-6 BMI: 36.8 Code: 08921-4 Heart Rate 1: 44 bpm Height: 5'3" Weight: 208 lbs 12/26/2013 Blood Pressure 1: 122/60 Code: 8480-6 BMI: 37.6 Code: 25245-7 Heart Rate 1: 56 bpm Height: 5'3" [...] 1: 136/72 Code: 8480-6 BMI: 36.7 Code: 96269-7 Heart Rate 1: 76 bpm Height: 5'3" Weight: 207 lbs 01/06/2013 Blood Pressure 1: 130/70 Code: 8480-6 BMI: 36.5 Code: 45669-4 Heart Rate 1: 72 bpm Height: 5'3" [...] 1: 138/66 Code: 8480-6 BMI: 38.3 Code: 79073-9 Heart Rate 1: 60 bpm Height: 5'3" [...] 1: 130/60 Code: 8480-6 BMI: 38.3 Code: 60920-7 Heart Rate 1: 60 bpm Height: 5'3" Weight: 216 lbs 12/25/2011 Blood Pressure 1: 142/76 Code: 8480-6 Heart Rate 1: 60 bpm Respiratory Rate: 20 bpm Weight: 213 lbs 12/04/2011 Blood Pressure 1: 142/64 Code: 8480-6 BMI: 38.6 Code: 82459-2 Heart Rate 1: 59 bpm Height: 5'3" Respiratory Rate: 20 bpm SpO2: 96% Weight: 218 lbs 09/20/2011 Blood Pressure 1: 166/68 Code: 8480-6 BMI: 36.5 Code: 65697-7 Heart Rate 1: 50 bpm Height: 5'3" [...] 1: 120/60 Code: 8480-6 BMI: 36.8 Code: 48784-5 Heart Rate 1: 64 bpm Height: 5'3" Respiratory Rate: 16 bpm Weight: 211 lbs 05/04/2011 Blood Pressure 1: 142/58 Code: 8480-6 BMI: 38.0 Code: 87529-4 Heart Rate 1: 56 bpm Height: 5'2" Respiratory Rate: 12 bpm Weight: 211 lbs 04/19/2011 Blood Pressure 1: 138/51 Code: 8480-6 BMI: 35.5 Code: 45584-1 Heart Rate 1: 66 bpm Height: 5'4" [...] Alleviating Factors medication 06/08/2016 None 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 None hypothyroid Onset and [...] Alleviating Factors medication 04/06/2016 None 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[place] 04/06/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 None hypothyroid Onset and [...] Alleviating Factors medication 03/09/2016 None 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[place] 03/09/2016 None hypothyroid Onset and [...] Alleviating Factors medication 01/18/2016 None 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 P ATIENT, LEVEL III Diagnosis: Gastro-esophageal reflux 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[ICD10: K21.9] Diagnosis: Urinary tract infection, site not specified[ICD10: N39.0] Diagnosis: Localized edema[ICD10: R60.0] Chaparrita Flanagan MD, [facility] CPT- 4: 07591 02/02/2017 ([id number]) 34209 EST. P ATIENT, LEVEL III Diagnosis: Acute recurrent maxillary sinusitis[ICD10: J01.01] Diagnosis: Cough[ICD10: R05] Chaparrita Flanagan MD, [facility] CPT-4: 64768 01/15/2017 ([id number]) 13845 EST. P ATIENT, LEVEL IV Diagnosis: Essential (primary) hypertension[ICD10: I10] Diagnosis: Mixed hyperlipidemia[ICD10: E78.2] Diagnosis: Pain in left knee[ICD10: M25.562] Diagnosis: Allergic rhinitis due to pollen[ICD10: J30.1] Concepción Flanagan MD, C CPT-4: 45830 01/04/2017 ([id number]) 94832 EST. P ATIENT, LEVEL IV Diagnosis: Essential (primary) hypertension[ICD10: I10] Diagnosis: Major depressive disorder, recurrent, moderate[ICD10: F33.1] Concepción Flanagan MD, [facility] CPT-4: 52548 09/07/2016 ([id number]) 71418 EST. P ATIENT, LEVEL III Diagnosis: Essential (primary) hypertension[ICD10: I10] Concepción Flanagan MD, C CPT-4: 70655 07/06/2016 ([id number]) Miscellaneou s no charge Diagnosis: Essential (primary) hypertension[ICD10: I10] Hayley Flanagan MD, [facility] CPT-4: 71133 06/16/2016 ([id number]) 38384 EST. P ATIENT, LEVEL III Diagnosis: Essential (primary) hypertension[ICD10: I10] Diagnosis: Generalized anxiety disorder[ICD10: F41.1] Concepción Flanagan MD, [facility] CPT-4: 85272 06/08/2016 ([id number]) Miscellaneou s no charge Diagnosis: Essential (primary) hypertension[ICD10: I10] Hayley Flanagan MD, [facility] CPT-4: 40263 04/17/2016 ([id number]) 39343 EST. P ATIENT, LEVEL IV Diagnosis: Essential (primary) hypertension[ICD10: I10] Diagnosis: Localized edema[ICD10: R60.0] Concepción Flanagan MD, [facility] CPT-4: 12034 04/06/2016 ([id number]) Miscellaneou s no charge Diagnosis: Essential (primary) hypertension[ICD10: I10] Chaparrita Flanagan MD, [facility] CPT-4: 74042 03/10/2016 ([id number]) 36841 EST. P ATIENT, LEVEL IV Diagnosis: Essential (primary) hypertension[ICD10: I10] Diagnosis: Mixed hyperlipidemia[ICD10: E78.2] Diagnosis: Hypothyroidism, unspecified[ICD10: E03.9] Diagnosis: Generalized anxiety disorder[ICD10: F41.1] Chaparrita Flanagan MD, [facility] CPT-4: 10622 03/09/2016 ([id number]) 11362 EST. 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 P ATIENT, LEVEL IV Diagnosis: ESSENTIAL HYPERTENSION[ICD9: 401.9] Diagnosis: Sleep apnea[ICD9: 780.57] Diagnosis: ANEMIA[ICD9: 285.9] Concepción Flanagan MD, [facility] CPT-4: 63928 12/25/2014 ([id number]) 47742 EST. P ATIENT, LEVEL III Diagnosis: ESSENTIAL HYPERTENSION[ICD9: 401.9] Concepción Flanagan MD, [facility] CPT- 4: 81469 10/13/2014 ([id number]) 75108 EST. P ATIENT, LEVEL IV Diagnosis: HYPOTHYROIDISM[ICD9: 244.9] Diagnosis: HYPERLIPIDEMIA[ICD9: 272.4] Diagnosis: ESSENTIAL HYPERTENSION[ICD9: 401.9] Diagnosis: ENCNTR LONG-RX USE NEC[ICD9: V58.69] Diagnosis: Sleep apnea[ICD9: 780.57] Concepción Flanagan MD, [facility] CPT-4: 80019 08/28/2014 ([id number]) Miscellaneou s no charge Diagnosis: ESSENTIAL HYPERTENSION[ICD9: 401.9] Concepción Flanagan MD, [facility] CPT- 4: 88733 08/07/2014 ([id number]) 51821 EST. P ATIENT, LEVEL IV Diagnosis: EDEMA[ICD9: 782.3] Diagnosis: ACUTE SINUSITIS[ICD9: 461.9] Diagnosis: Urinary tract infection[ICD9: 599.0] Diagnosis: Nocturnal hypoxia[ICD9: 799.02] [facility] CPT- 4: 39231 05/07/2014 ([id number]) 38300 EST. P ATIENT, LEVEL IV Diagnosis: ESSENTIAL HYPERTENSION[ICD9: 401.9] Diagnosis: HYPERLIPIDEMIA[ICD9: 272.4] Diagnosis: JOINT PAIN-L/LEG[ICD9: 719.46] [facility] CPT-4: 21002 04/16/2014 ([id number]) 03539 EST. P ATIENT, LEVEL IV Diagnosis: ESSENTIAL HYPERTENSION[SNOMED: 06069384] Diagnosis: HYPERLIPIDEMIA[ICD9: 272.4] Diagnosis: HYPOTHYROIDISM[ICD9: 244.9] Diagnosis: Nocturnal hypoxaemia[ICD9: 799.02] Concepción Flanagan MD, [facility] CPT- 4: 74141 01/21/2014 ([id number]) 97201 EST. P ATIENT, LEVEL III Diagnosis: ESSENTIAL HYPERTENSION[SNOMED: 90113944] Diagnosis: Bradycardia[ICD9: 427.89] Concepción Flanagan MD, [facility] CPT-4: 81920 01/07/2014 ([id number]) 35284 EST. P ATIENT, LEVEL III Diagnosis: ACUTE URI[ICD9: 465.9] Diagnosis: COUGH[ICD9: 786.2] Chaparrita Flanagan MD, [facility] CPT-4: 11650 12/26/2013 ([id number]) 13694 EST. P ATIENT, LEVEL III Diagnosis: ALLERGIC RHINITIS[ICD9: 477.9] Diagnosis: HYPERLIPIDEMIA[ICD9: 272.4] Diagnosis: ESSENTIAL HYPERTENSION[SNOMED: 56989816] Diagnosis: ENCNTR LONG-RX USE NEC[ICD9: V58.69] Diagnosis: Laboratory exam ordered as part of routine general medical examination[ICD9: V72.62] Diagnosis: HYPOTHYROIDISM[ICD9: 244.9] Chaparrita Flanagan MD, [facility] CPT- 4: 14116 11/12/2013 ([id number]) 37645 EST. P ATIENT, LEVEL III Diagnosis: Acute maxillary sinusitis[ICD9: 461.0] Chaparrita Flanagan MD, [facility] CPT-4: 05122 10/09/2013 ([id number]) 33001 EST. P ATIENT, LEVEL III Diagnosis: ESSENTIAL HYPERTENSION[SNOMED: 02536581] Diagnosis: DYSURIA[ICD9: 788.1] Concepción Flanagan MD, [facility] CPT-4: 70580 04/03/2013 ([id number]) 03686 EST. P ATIENT, LEVEL III Diagnosis: ESSENTIAL HYPERTENSION[SNOMED: 49161531] Diagnosis: EDEMA[ICD9: 782.3] Concepción Flanagan MD, [facility] CPT-4: 33378 01/06/2013 ([id number]) 73273 EST. P ATIENT, LEVEL III Diagnosis: UNSPECIFIED ASTHMA[ICD9: 493.90] Diagnosis: Cough[ICD9: 786.2] Diagnosis: ALLERGIC RHINITIS[ICD9: 477.9] Concepción Flanagan MD [facility] CPT-4: 45129 11/21/2012 ([id number]) 84189 EST. P ATIENT, LEVEL IV Diagnosis: ESSENTIAL HYPERTENSION[SNOMED: 71518399] Diagnosis: EDEMA[ICD9: 782.3] Concepción Flanagan MD, [facility] CPT-4: 01752 10/28/2012 ([id number]) 52981 EST. P ATIENT, LEVEL IV Diagnosis: ESSENTIAL HYPERTENSION[SNOMED: 81137930] Diagnosis: EDEMA[ICD9: 782.3] Diagnosis: Knee pain, right[ICD9: 719.46] Diagnosis: Urge incontinence[ICD9: 788.31] Concepción Flanagan MD, [facility] CPT-4: 79455 09/30/2012 ([id number]) 96109 EST. P ATIENT, LEVEL III Diagnosis: ESSENTIAL HYPERTENSION[SNOMED: 15292705] Concepción Flanagan MD, C CPT-4: 91627 08/14/2012 ([id number]) 24234 EST. P ATIENT, LEVEL III Diagnosis: CELLULITIS OF LEG[ICD9: 682.6] Concepción Flanagan MD, [facility] CPT-4: 15477 08/05/2012 ([id number]) 71455 EST. P ATIENT, LEVEL IV Diagnosis: ESSENTIAL HYPERTENSION[SNOMED: 66115962] Diagnosis: EDEMA[ICD9: 782.3] Diagnosis: Constipation[ICD9: 564.00] Concepción Flanagan MD, [facility] CPT-4: 60996 07/15/2012 ([id number]) 38967 EST. P ATIENT, LEVEL III Diagnosis: Subungual contusion of toenail[ICD9: 924.3] Concepción Flanagan MD, [facility] CPT-4: 03964 05/27/2012 Postop follow up vis it related to original px Diagnosis: BENIGN ERLINDA SKIN ARM[ICD9: 216.6] Diagnosis: BENIGN ERLINDA SKIN TRUNK[ICD9: 216.5] Concepción Flanagan MD, [facility] CPT- 4: 04816 05/03/2012 ([id number]) 17654 EST. P ATIENT, LEVEL IV Diagnosis: ESSENTIAL HYPERTENSION[SNOMED: 77734460] Diagnosis: OA (osteoarthritis) of knee[ICD9: 715.96] Diagnosis: EDEMA[ICD9: 782.3] Concepción Flanagan MD, [facility] CPT-4: 26850 03/25/2012 31985 EST. PATIENT, LEVEL IV Diagnosis: ESSENTIAL HYPERTENSION[SNOMED: 08696502] Diagnosis: Abdominal bloating[ICD9: 787.3] Concepción Flanagan MD, [facility] CPT-4: 34456 03/12/2012 ([id number]) 25709 EST. P ATIENT, LEVEL IV Diagnosis: ESSENTIAL HYPERTENSION[SNOMED: 27829484] Diagnosis: EDEMA[ICD9: 782.3] Concepción Flanagan MD, [facility] CPT-4: 92719 01/23/2012 ([id number]) 14506 EST. P ATIENT, LEVEL III Diagnosis: Breast pain, left[ICD9: 611.71] Chaparrita Flanagan MD, [facility] CPT- 4: 00526 01/12/2012 ([id number]) 03494 EST. P ATIENT, LEVEL IV Diagnosis: ESSENTIAL HYPERTENSION[SNOMED: 79332477] Diagnosis: DEPRESSIVE DISORDER NEC[ICD9: 311] Diagnosis: ANXIETY STATE[ICD9: 300.00] Concepción Flanagan MD, [facility] CPT-4: 69236 12/25/2011 ([id number]) 26872 EST. P ATIENT, LEVEL IV Diagnosis: ESSENTIAL HYPERTENSION[SNOMED: 15438100] Diagnosis: EDEMA[ICD9: 782.3] Concepción Flanagan MD, [facility] CPT-4: 88650 12/04/2011 ([id number]) 98213 EST. P ATIENT, LEVEL IV Diagnosis: ESSENTIAL HYPERTENSION[SNOMED: 89152340] Diagnosis: DEPRESSIVE DISORDER NEC[ICD9: 311] Concepción Flanagan MD, [facility] CPT- 4: 25686 09/20/2011 51988 EST. PATIENT, LEVEL IV Diagnosis: Dysuria[ICD9: 788.1] Diagnosis: ESSENTIAL HYPERTENSION[SNOMED: 68692192] Diagnosis: Anxiety[ICD9: 300.00] Concepción Flanagan MD, [facility] CPT-4: 34557 09/06/2011 ([id number]) 27354 EST. P ATIENT, LEVEL IV Diagnosis: LUMBAGO[ICD9: 724.2] Diagnosis: ESSENTIAL HYPERTENSION[SNOMED: 94340890] Concepción Flanagan MD, [facility] CPT-4: 84072 08/30/2011 66298 EST. PATIENT, LEVEL III Diagnosis: ACUTE SINUSITIS[ICD9: 461.9] Diagnosis: Urinary frequency[ICD9: 788.41] Chaparrita Flanagan MD, [facility] CPT- 4: 04077 08/23/2011 28030 EST. PATIENT, LEVEL III Diagnosis: Lesion of labia[ICD9: 624.8] Chaparrita Flanagan MD, [facility] CPT- 4: 05433 08/09/2011 86912 EST. PATIENT, LEVEL IV Diagnosis: HYPOTHYROIDISM[ICD9: 244.9] Diagnosis: HYPERLIPIDEMIA[ICD9: 272.4] Diagnosis: BP (high blood pressure)[SNOMED: 76274540] Diagnosis: Knee pain, bilateral[ICD9: 719.46] Diagnosis: ESOPHAGEAL REFLUX[ICD9: 530.81] Concepción Flanagan MD, [facility] CPT-4: 15839 05/04/2011 52307 EST. PATIENT, LEVEL III Diagnosis: ACUTE URI[ICD9: 465.9] Diagnosis: Asthma[ICD9: 493.90] Diagnosis: Esophageal reflux[ICD9: 530.81] Chaparrita Flanagan MD, [facility] CPT- 4: 16342 04/19/2011 Plan of Care Planned Activity Notes C odes Status Date Visit Plan: Xwdep-dlidewvnid-vngfg zpack when finished with cipro-follow up chest [...] up Sunday02/02/2017 Appointment: [phone] [facility] (15 min) Moderate 02/02/2017 Patient Education: Patient Medication Summary Completed 02/02/2017 Patient Education: Obesity Completed 02/02/2017 Visit Plan: Sinusitis - Pt has acute inf ection - pain in face, maxillary region, Pt informed to use decongestant, RX given to patient, sinus rinses also recommended. Call if symptoms do not show improvement. 01/15/2017 Appointment: Chaparrit[facility] Arrieta [phone] [facility] (10 min) Simple 01/15/2017 Patient Education: [...] today 01/04/2017 Appointment[phone] ([facility] min) Moderate 01/04/2017 Patient Education: [...] (lexapro). 09/07/2016 Appointment: Concepción Flanagan WPtel: [phone] [facility] (30 min) Complex 09/07/2016 Patient Education: Patient [...] at home. 07/06/2016 Appointment: Concepción Flanagan WPtel: [facility] [place] (15 min) Moderate 07/06/2016 Patient Education: [...] TWICE DAILY 06/08/2016 Appointment: Concepción Flanagan [facility] [phone] [facility] [place] (15 min) Moderate 06/08/2016 Patient [...] edema. 04/06/2016 Appointment: [facility]cepc[facility]agan [phone] [facility] (15 min) Moderate 04/06/2016 Patient Education: [...] Mikala. 01/18/2016 Appointment: Concepción Flanagan WPtel: [address] [place], [place] [address] (15 min) Moderate 01/18/2016 Patient Education: Patient [...] improved-will fax today's note to [employer] for re- certification of oxygen. 09/09/2015 Visit [...] today's note to [employer] for re- certification of oxygen. 09/09/2015 Appointment: [...] discuss with her son who is a Immunology Specialist - and consider re- evaluation for nasal pillows with her cpap since she could not tolerate a face mask cpap in the past. 12/25/2014 Appointment: Concepción Flanagan tel: [address] [place], [place] [address] Follow up 12/25/2014 Patient Education: Patient Medication [...] home. 10/13/2014 Appointment: [facility]pc[facility] Flanagan [facility] [phone] [facility] Follow up 10/13/2014 Patient Education: Patient [...] . 08/28/2014 Appointment: [facility]pc[facility] Flanagan [phone] [facility] Follow up 08/28/2014 Patient Education: Patient [...] creatinine. 04/16/2014 Appointment: Concepción Flanagan WPtel: [phone] [facility] Follow up 04/16/2014 Patient Education: Patient Medication Summary Completed 04/16/2014 Patient Education: Patient Medication Summary Completed 04/14/2014 Patient Education: Hypertension Completed 04/14/2014 Visit Plan: Wound Instructions - Pt was instruced to keep the wound clean, wash with antibacterial soap, use triple antibiotic ointment, call if redness, pustular drainage, or any other acute conerns. 01/27/2014 Appointment: Concepción Flanagan WPtel: [phone] [facility] [place] Surgical Procedure 01/27/2014 Patient Education: Patient Medication [...] home eval. 2013 Appointment: Concepción Flanagan WPtel: [facility] Follow up 01/21/2014 Patient Education: Patient Medication Summary Completed 01/21/2014 Patient Education: Hypertension Completed 01/21/2014 Visit Plan: Hypotension - Bradycardia - pt to stop her metroprolol - check bp and heart rate twice daily and monitor symptoms. Call if bp uncontrolled- or heart rate to elevated. 01/07/2014 Appointment: Concepción Flanagan WPtel: [phone] [facility] Follow up 01/07/2014 Patient Education: Hypertension Completed [...] swallow 2013 Appointment: Chaparrita Arrieta WPtel: [phone] [phone] [facility] 11/12/2013 Patient Education: Patient Medication Summary Completed 11/12/2013 Patient Education: Hypertension Completed 11/12/2013 Visit Plan: Sinusitis - Pt has acute inf ection - pain in face, maxillary region, Pt informed to use decongestant, RX given to patient, sinus rinses also recommended. Call if symptoms do not show improvement. 10/09/2013 Appointment: Chaparrita Arrieta [facility]Ptel[facility] [phone] [facility] [facility] 10/09/2013 Patient Education: Patient Medication Summary Completed 10/09/2013 Visit Plan: Hypertension - well controll ed - continue with current medications, continue with no added salt diet. Pt has been encouraged to exercise daily.The pt has been advised to call the office if there are any acute concerns about change in blood pressure readings at home.Dysuria - check UA 2012 Appointment: Concepción Flanagan WPtel: [facility] Follow up 04/03/2013 Patient Education: Patient Medication Summary Completed 04/03/2013 Patient Education: Hypertension Completed 04/03/2013 Patient Education: Patient Medication Summary Completed 03/31/2013 Patient Education: Hypertension Completed 03/31/2013 Visit Plan: ua performed - sent for culture if [facility]. 03/21/2013 Appointment: Concepción Flanagan WPtel: [facility] Lab Draw 03/21/2013 Patient Education: Patient Medication [...] peripheral edema. 01/06/2013 Appointment: Concepción Flanagan WPtel: [phone] [facility] Follow up 01/06/2013 Patient Education: Patient Medication Summary Completed 01/06/2013 Patient Education: Hypertension Completed 01/06/2013 Visit Plan: Egsgixgkn-Cioipf-wrbqotss no t well controlled-KENALOG injection today in [...] peripheral edema. 10/28/2012 Appointment: Concepción Flanagan WPtel: [facility] Follow up 10/28/2012 Patient Education: Patient Medication [...] treatment recommendations. 09/30/2012 Appointment: Concepción Flanagan WPtel: [facility] [facility] 09/30/2012 Patient Education: Patient Medication Summary Completed 09/30/2012 Patient Education: Hypertension Completed 09/30/2012 Appointment: [facility] Flanagan [phone] [facility] [place] Lab Draw 09/11/2012 Patient Education: [...] - resolved 2011 Appointment: Concepción Flanagan WPtel: [phone] [facility] Follow up 08/14/2012 Patient Education: Patient Medication Summary Completed 08/14/2012 Patient Education: Hypertension Completed 08/14/2012 Visit Plan: Cellulitis - start with gene gail Bactrim DS as directed, return to clinic as previously directed, call for acute change in symptoms, worsening redness, warmth, discharge. 08/05/2012 Appointment: Concepción Flanagan WPtel: [phone] [facility] Follow up 08/05/2012 Patient Education: Patient Medication [...] soften stools. 07/15/2012 Appointment: Concepción Flanagan WPtel: [phone] [facility] [facility] follow up 07/15/2012 Patient Education: Patient Medication Summary Completed 07/15/2012 Patient Education: Hypertension Completed 07/15/2012 Visit Plan: Subungual discoloratiion of toenail- June 10 pt is to see Dr. Bee - I have discussed the case with the pt and Dr. bee and she will likely have a biopsy of the digit and avulsion of the nail. 05/27/2012 Appointment: Concepción Flanagan [facility]Ptel[phone] [place] Other 05/27/2012 Patient Education: Patient Medication Summary Completed 05/27/2012 Appointment: Chaparrita Arrieta WPtel: [phone] [facility] Follow up 05/16/2012 Visit Plan: Obesity [...] todayInfluenza vaccine 05/03/2012 Appointment: Chaparrita Arrieta WPtel: [phone] [phone] Follow up 05/03/2012 Patient Education: Patient Medication Summary Completed 05/03/2012 Visit Plan: Wound Instructions - Pt was instruced to keep the wound clean, wash with antibacterial soap, use triple antibiotic ointment, call if redness, pustular drainage, or any other acute conerns. 04/23/2012 Appointment: Concepción Flanagan WPtel: [facility] Surgical Procedure 04/23/2012 Patient Education: Patient Medication Summary Completed 04/23/2012 Appointment: Concepción Flanagan WPtel: [facility]5 [facility] Lab Draw 04/16/2012 Patient Education: Patient Medication [...] pressure readings at home.Recommend follow up with primary care provider for clearance before knee surgery. Will get [...] to thighs. 2011 Appointment: [phone] [place] Other 03/25/2012 Patient Education: Patient [...] of lesion. 03/12/2012 Appointment: [phone] [phone] [place] Other 03/12/2012 Patient Education: Patient [...] at home. 01/23/2012 Appointment: Concepción Flanagan WPtel: [address] [place] [address] Other 01/23/2012 Patient Education: Patient Medication Summary Completed 01/23/2012 Patient Education: High Blood Pressure: Essential Hypertension Completed 01/23/2012 Visit Plan: Breast dlbq-mgtd-ratnquoiq n atural and expected course of this diagnosis and to alert me if symptoms do not follow expected course, or if any worse. Plan for diagnostic mammogram, in meantime, instructed patient to get more supportive bra, use anti-inflammatories and monitor symptoms. Patient verbalized understanding of plan. 01/12/2012 Appointment: Chaparrita Arrieta WPtel: [address] [place], [place] [phone] Other 01/12/2012 Patient Education: Patient Medication Summary [...] current medications. 12/25/2011 Appointment: Concepción Flanagan WPtel: [facility] Other 12/25/2011 Patient Education: Patient Medication [...] COMPRESSION SOCKS. 2011 Appointment: Concepción Flanagan WPtel: [facility] [place] Other 12/04/2011 Patient Education: Patient Medication Summary Completed 12/04/2011 Patient Education: High Blood Pressure: Essential Hypertension Completed 12/04/2011 Appointment: Chaparrita Arrieta WPtel: [phone] [place] Lab Draw 12/01/2011 Patient Education: Patient Medication Summary Completed 12/01/2011 Appointment: Concepción Flanagan [facility]el[phone] [facility] [place] Lab Draw 11/20/2011 Patient Education: [...] acutely worsen. 09/20/2011 Appointment: Concepción Flanagan WPtel: [facility]5 [facility] Other 09/20/2011 Patient Education: Patient Medication Summary Completed 09/20/2011 Patient Education: High Blood Pressure: Essential Hypertension Completed 09/20/2011 Appointment: Concepción Flanagan WPtel: [facility] Other 09/13/2011 Visit Plan: Hypertension - The [...] and benefits of treament with the above medications.Vcmepxn-akhjwfoh-EN negative 09/06/2011 Appointment: Chaparrita Arrieta WPtel[facility] [phone] [phone] Other 09/06/2011 Patient Education: Patient Medication [...] they worsen. 08/30/2011 Appointment: Concepc[facility] Flanagan [phone] [place] Other 08/30/2011 Patient Education: Patient Medication [...] patient's pharmacy. 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 Patient and verbalized understanding. 08/09/2011 Appointment: Chaparrita Arrieta WPtel: [facility] [place] [address] Other 08/09/2011 Patient Education: Patient Medication Summary [...] not improving. 05/04/2011 Appointment: Concepción Flanagan WPtel: [address] [place] [address] [place] Other 05/04/2011 Patient Education: Patient Medication [...] 40mg daily. 04/19/2011 Appointment: Chaparrita Arrieta WPtel: [phone] [facility] 04/19/2011 Patient Education: Patient Medication Summary Completed 04/19/2011 Instructions Comment Use your albuterol i nhaler 1-2 puffs every 4-6 hours as needed for cough/SOA. Call if your symptoms do not improve, or if any worse.. Ufkzfjpoc-Fgfxyd-npvgbrmz not well controlled-KENALOG injection today in the [...] 240mg daily . ua performed - vane t for culture if indicated. . Obesity [...] discuss with her son who is a Immunology Specialist - and consider re-evaluation for nasal [...] twice daily and monitor symptoms. . Breast fxel-wsbf-ngmgzpqob natural and expected course of this diagnosis [...] benefits of treament with the above medications. Pdvzvkw-drtpwgli-GU negative . Hypertension - wel l controlled [...] HYDROCODONE AT 1/2 PILL TWICE DAILY . Fbpqf-lmjurclogt-p tart zpack when finished with cipro- follow [...] readings at home. Recommend follow up with primary care provider for clearance before knee surgery. Will get [...] levaquin also sent to patient's pharmacy. . Hypertension - [...]
--- OUTSIDE RECORDS SUMMARY | 2020-01-05 01:44 | XMS REPORT | CCD ---
Author Author Mikala Arrieta Organization [facility] Address [address] [place] [address] Phone Care Team Providers Care [address] [facility] Magistrate Name Role Phone [facility] Un[facility] CCM Unavailable Summary Purpose Interface Exchange Insurance Providers Payer name Policy type / Coverage type Covered constitution party ID Effective Begin Date Effective End Date WPS Medicare Part B 50 [id number] 2015 Unknown AARP [id number] 2015 Unknown Family history Father Diagnosis Age At Onset Stroke Unknown Mother Diagnosis Age At Onset Tuberculosis Unknown Social History Social History Element Codes Description Effective Dates Education level Unknown College Graduate 04/23/2012 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 Marital status Unknown M arried 04/19/[address]: 4538372 Quit over 10 years ago 40 pack/year history 04/19/[address]: 799953452 Never drinks alcohol 04/19/2011 Allergies, Adverse Reactions, [...] Instructions Zithromax Z-Hebert 250 mg tablet RxNorm: 882480 1 Tablet(s) PO UD 02/05/2017 02/09/2017 Active start with finished with cipro Cipro 500 mg tablet RxNorm: 384663 1 Tablet(s) PO BID 02/01/2017 02/07/2017 Active prednisone 20 mg tablet RxNorm: 645709 1 Tablet(s) PO BID 01/15/2017 01/19/2017 Inactive take 1 in the morning and 1 at noon Anusol-HC 25 mg rect al suppository RxNorm: 7455519 1 Suppository PRN IN SERT 1 RECTALLY DAILY NEEDED 01/04/2017 04/03/2017 Active calcium carbonate 60 0 mg calcium (1,500 mg) tablet RxNorm: 323065 1 Tablet(s) PO daily 01/04/2017 No Stop Date Active Kenalog 40 mg/mL heaven pension for injection RxNorm: 8551014 1 Milliliter(s) Inj 01/04/2017 01/04/2017 In active Lasix 40 mg tablet RxNorm: 533555 TAKE ONE TABLET BY MOUTH DAILY 12/20/2016 09/15/2017 Ac tive Cartia XT 240 mg cap chad,extended release RxNorm: 206019 TAKE ONE CAPSULE BY M [facility] DAILY 12/20/2016 09/15/2017 Active Synthroid 50 mcg tablet RxNorm: 634623 1 Tablet(s) PO daily TAKE ONE TABLET BY MOUTH DAILY 11/27/2016 05/25/2017 Active Must be name brand meloxicam 15 mg tablet RxNorm: 221407 Tablet(s) TAKE ONE TABLET BY MOUTH ONE T MARÍA ELENA A DAY 11/27/2016 06/24/2017 Active Crestor 10 mg tablet RxNorm: 272240 TAKE 1 TABLET BY MOUTH ON SUNDAY, , AND Sunday11/13/2016 10/14/2017 Active Lexapro 10 mg tablet RxNorm: 928955 1 Tablet(s) PO daily 09/07/2016 01/03/2017 Inactive please make sure that her RX for lexapro is a 10mg dose - delete the 5mg lexapro pill - this is FYI Klor-Con 10 mEq tabl et,extended release RxNorm: 482469 TAKE ONE TABLET BY MO [facility] TWICE A DAY 08/29/2016 02/24/2017 Active Kenalog 40 mg/mL heaven pension for injection RxNorm: 3020800 Milliliter(s) Inj 08/23/2016 08/23/2016 In active cefdinir 300 mg capsule RxNorm: 687633 1 Capsule(s) PO BID 08/22/2016 08/28/2016 Inactive take probiotic while on abx Zithromax Z-Hebert 250 mg tablet RxNorm: 958306 1 Tablet(s) PO UD 08/11/2016 09/06/2016 Inactive Z PACK DIRECTED Lexapro 5 mg tablet RxNorm: 929644 TAKE ONE TABLET BY MOUTH EVERY EVENING 07/18/2016 09/06/2016 In active Singulair 10 mg tablet RxNorm: 201888 TAKE ONE TABLET BY MOUTH EVERY DAY 07/17/2016 01/07/2018 Ac tive Benicar 40 mg tablet RxNorm: 034984 TAKE ONE TABLET BY MOUTH DAILY 07/17/2016 07/11/2017 Ac tive Lexapro 10 mg tablet RxNorm: 897024 1 Tablet(s) PO daily 06/16/2016 09/06/2016 Inactive diltiazem ER 180 mg capsule,extended release RxNorm: 114950 TAKE ONE CAPSULE BY M OUTH DAILY 06/15/2016 07/05/2016 Inactive Lexapro 10 mg tablet RxNorm: 055681 1 Tablet(s) PO daily 06/08/2016 06/15/2016 Inactive gabapentin 600 mg ta blet RxNorm: 330195 TAKE ONE TABLET BY MO [facility] EVERY NIGHT AT BEDTIME NEEDED 04/27/2016 01/21/2017 Inactive Cartia XT 240 mg cap chad,extended release RxNorm: 248825 1 Capsule(s) PO daily TAKE ONE CAPSULE BY MOUTH ONCE A DAY 04/17/2016 12/19/2016 Inactive Benicar 40 mg tablet RxNorm: 108547 1 Tablet(s) PO daily 04/17/2016 07/16/2016 Inactive she can do 90 days if she wants to Lexapro 5 mg tablet RxNorm: 818079 1 Tablet(s) PO QPM 03/09/2016 06/07/2016 Inactive Colace 100 mg capsule RxNorm: 2542640 1 Capsule(s) PO daily 01/18/2016 No Stop Date Active hydrocodone 5 mg-patrizia taminophen 325 mg tablet RxNorm: 172429 1/2 Tablet(s) PO QID as needed 01/18/2016 02/16/2016 Inactive Synthroid 50 mcg tablet RxNorm: 291805 1 Tablet(s) PO daily TAKE ONE TABLET BY MOUTH DAILY 01/18/2016 07/15/2016 Inactive Synthroid 50 mcg tablet RxNorm: 616343 Tablet(s) TAKE ONE TABLET BY MOUTH DAILY 12/23/2015 01/17/2016 In active Benicar 40 mg tablet RxNorm: 581507 1 Tablet(s) PO daily 12/13/2015 12/12/2015 Inactive Benicar 40 mg tablet RxNorm: 927620 1 Tablet(s) PO daily 12/13/2015 04/10/2016 Inactive meloxicam 15 mg tablet RxNorm: 953565 TAKE ONE TABLET BY MOUTH ONE TIME A DAY 11/12/2015 06/08/2016 In active meloxicam 15 mg tablet RxNorm: 439907 Tablet(s) TAKE ONE TABLET BY MOUTH ONE T MARÍA ELENA A DAY 11/11/2015 11/11/2015 Inactive Lasix 40 mg tablet RxNorm: 045842 Tablet(s) TAKE ONE TABLET BY MOUTH EVERY DAY 10/19/2015 12/19/2016 Inactive diltiazem ER 180 mg capsule,extended release RxNorm: 803962 1 Capsule(s) daily TA KE ONE CAPSULE BY MOUTH ONCE A DAY 09/27/2015 04/16/2016 Inactive Crestor 10 mg tablet RxNorm: 132920 1 Tablet(s) PO Sun09/17/2015 07/12/2016 Inactive [SAVINGS FOR UNINSURED PATIENTS -- BIN:0 88719, PCN: ASPROD1, Group: [id number], ID# [id number], Process claim through blinkbox music, for questions: . THIS IS NOT INSURANCE.] hydrocodone 5 mg-patrizia taminophen 325 mg tablet RxNorm: 649373 1-2 Tablet(s) PO Q6 P RN 09/09/2015 10/08/2015 In active Micardis 80 mg tablet RxNorm: 999485 1 Tablet(s) PO daily TAKE ONE TABLET BY MOUTH DAILY 08/23/2015 12/12/2015 Inactive Klor-Con 10 mEq tabl et,extended release RxNorm: 403667 Tablet(s) TAKE ONE TA BLET BY MOUTH TWICE A DAY 08/23/2015 02/18/2016 Inactive Synthroid 50 mcg tablet RxNorm: 667223 TAKE ONE TABLET BY MOUTH DAILY 07/06/2015 12/22/2015 In active meloxicam 15 mg tablet RxNorm: 321044 TAKE ONE TABLET BY MOUTH ONE TIME A DAY 06/22/2015 11/10/2015 In active Singulair 10 mg tablet RxNorm: 009027 TAKE ONE TABLET BY MOUTH EVERY DAY 05/18/2015 07/16/2016 In active Micardis 80 mg tablet RxNorm: 978729 TAKE ONE TABLET BY MOUTH DAILY 02/22/2015 05/04/2015 In active gabapentin 600 mg ta blet RxNorm: 967044 1 Tablet(s) PO HS as needed 01/15/2015 01/09/2016 Inactive [SAVINGS FOR NON-COVERED DRUGS -- BIN:00 3585, PCN: ASPROD1, Group: [id number], ID# [id number], Questions: . THIS IS NOT INSURANCE.] diltiazem ER 180 mg capsule,extended release RxNorm: 143169 TAKE ONE CAPSULE BY M OUTH ONCE A DAY 01/07/2015 09/26/2015 Inactive meloxicam 15 mg tablet RxNorm: 521539 TAKE ONE TABLET BY MOUTH ONE TIME A DAY 11/09/2014 05/07/2015 In active gabapentin 600 mg ta blet RxNorm: 059856 1 Tablet(s) PO HS as needed 10/13/2014 01/14/2015 Inactive [SAVINGS FOR UNINSURED PATIENTS -- BIN:0 37018, PCN: ASPROD1, Group: [id number], ID# [id number], Process claim through MedImpact, for questions: . THIS IS NOT INSURANCE.] omeprazole 20 mg tab let,delayed release RxNorm: 900559 1 Tablet(s) PO daily 10/13/2014 11/11/2014 In active Synthroid 50 mcg tablet RxNorm: 974810 TAKE ONE TABLET BY MOUTH EVERY DAY 10/12/2014 01/09/2015 In active Synthroid 50 mcg tablet RxNorm: 342098 Tablet(s) TAKE ONE TABLET BY MOUTH EVERY DAY 10/12/2014 10/11/2014 Inactive [SAVINGS FOR UNINSURED PATIENTS -- BIN:0 72803, PCN: ASPROD1, Group: [id number], ID# [id number], Process claim through Rong360act, for questions: . THIS IS NOT INSURANCE.] Lasix 40 mg tablet RxNorm: 139496 Tablet(s) PO TAKE ONE TABLET BY MOUTH TW ICE A DAY FOR 3 DAYS, THEN RESUME ONE DAILY EXCEPT ON WEDNESDAYS AND FRIDAYS TAKE ONE TWICE DAILY 09/22/2014 No Stop Date Active [SAVINGS FOR UNINSURED PATIE NTS -- BIN:[id number], PCN: ASPROD1, Group: [id number], ID# [id number], Process claim through MedISaint Aiden Streetact, for questions: . THIS IS NOT INSURANCE.] Lasix 40 mg tablet RxNorm: TAKE ONE TABLET BY MOUTH EVERY DAY 09/22/2014 10/18/2015 In active Crestor 10 mg tablet RxNorm: 222687 1 Tablet(s) PO Sun08/28/2014 04/24/2015 Inactive [SAVINGS FOR UNINSURED PATIENTS -- BIN:0 23493, PCN: ASPROD1, Group: [id number], ID# [id number], Process claim through blinkbox music, for questions: . THIS IS NOT INSURANCE.] Crestor 10 mg tablet RxNorm: 104809 1 Tablet(s) PO Sun08/28/2014 08/27/2014 Inactive [SAVINGS FOR UNINSURED PATIENTS -- BIN:0 50092, PCN: ASPROD1, Group: [id number], ID# [id number], Process claim through blinkbox music, for questions: . THIS IS NOT INSURANCE.] Micardis 80 mg tablet RxNorm: 261963 TAKE ONE TABLET BY MOUTH EVERY DAY 08/24/2014 12/21/2014 In active Zithromax Z-Hebert 250 mg tablet RxNorm: 949689 Tablet(s) PO UD 08/14/2014 08/18/2014 Inactive 2 tabs day 1, 1 tabs days 2-5 Anusol-HC 25 mg supp ository RxNorm: 4557042 INSERT 1 RECTALLY DA GUSTAVO NEEDED 07/13/2014 10/10/2014 In active Klor-Con 10 mEq tabl et,extended release RxNorm: 698243 TAKE ONE TABLET BY [facility] TWICE A DAY 06/18/2014 12/14/2014 Inactive Lomotil 2.5 mg-0.025 mg tablet RxNorm: 3503471 1 Tablet(s) PO PRN a fter each loose stool max 8 per day 06/15/2014 10/12/2014 Inactive one after each loose bm juarez it 8 per day albuterol sulfate HF A 90 mcg/actuation aerosol inhaler RxNorm: 4933502 1 or2 Puff(s) INH Q4 PRN as needed 05/11/2014 05/10/2014 Inactive albuterol sulfate HF A 90 mcg/actuation aerosol inhaler RxNorm: 5925365 1 or2 Puff(s) INH Q4 PRN as needed 05/11/2014 01/03/2017 Inactive Premarin 0.625 mg/gr am vaginal cream RxNorm: 876999 1/2 Gram(s) VAG every other day 05/11/2014 12/06/2014 In active Premarin 0.625 mg/gr am vaginal cream RxNorm: 793932 1/2 Gram(s) VAG every other day 05/11/2014 05/10/2014 In active cefdinir 300 mg capsule RxNorm: 345043 1 Capsule(s) PO BID 05/07/2014 05/16/2014 Inactive Rocephin 500 mg solu tion for injection RxNorm: 884257 1 Milliliter(s) Inj 05/07/2014 05/07/2014 In active Singulair 10 mg tablet RxNorm: 459840 TAKE ONE TABLET BY MOUTH EVERY DAY 04/30/2014 10/12/2014 In active meloxicam 15 mg tablet RxNorm: 716544 1 Tablet(s) PO daily 04/16/2014 11/08/2014 Inactive Crestor 10 mg tablet RxNorm: 943089 1 Tablet(s) PO Sun TAKE ONE TAB LET BY MOUTH EVERY DAY 04/16/2014 08/27/2014 Inactive Synthroid 50 mcg tablet RxNorm: 157247 TAKE ONE TABLET BY MOUTH EVERY DAY 04/02/2014 09/28/2014 In active diltiazem ER 180 mg capsule,extended release RxNorm: 640142 1 Capsule(s) PO daily 01/05/2014 12/30/2014 In active Pennsaid 1.5 % topic al drops RxNorm: 360015 Drop(s) TOP APPLY 15 - 20 DROPS TOPICALLY FOUR TIMES A DAY 12/29/2013 01/17/2016 Inactive Rocephin 500 mg solu tion for injection RxNorm: 865052 Inj 12/2612/26/2013 Inactive Kenalog 40 mg/mL heaven pension for injection RxNorm: 7543614 Milliliter(s) Inj 12/26/2013 12/26/2013 In active Micardis 80 mg tablet RxNorm: 536922 Tablet(s) PO TAKE ONE TABLET BY MOUTH 12/15/2013 08/23/2014 Inactive nystatin 100,000 uni t/mL oral suspension RxNorm: 438262 4 Unit(s) PO QID swis h and swallow 11/12/2013 12/09/2013 Inactive Kenalog 40 mg/mL heaven pension for injection RxNorm: 9096064 Milliliter(s) Inj 11/12/2013 11/12/2013 In active Lasix 40 mg tablet RxNorm: 866261 Tablet(s) PO TAKE ONE TABLET BY MOUTH TW ICE A DAY FOR 3 DAYS, THEN RESUME ONE DAILY EXCEPT ON WEDNESDAYS AND FRIDAYS TAKE ONE TWICE DAILY 10/30/2013 09/21/2014 Inactive Lasix 40 mg tablet RxNorm: 102246 1 Tablet(s) PO daily 10/30/2013 10/29/2013 Inactive Rocephin 500 mg solu tion for injection RxNorm: 631550 1 Milliliter(s) Inj 10/09/2013 10/09/2013 In active metoprolol succinate ER 25 mg tablet,extended release 24 hr RxNorm: 895508 Tablet(s) PO TAKE ONE TABLET BY MOUTH EVERY DAY 10/02/2013 01/06/2014 Inactive metoprolol succinate ER 25 mg tablet,extended release 24 hr RxNorm: 671609 Tablet(s) PO TAKE ONE TABLET BY MOUTH EVERY DAY 08/04/2013 10/01/2013 Inactive Synthroid 50 mcg tablet RxNorm: 706207 Tablet(s) PO TAKE ONE TABLET BY MOUTH EV DEANNA DAY 07/14/2013 04/01/2014 Inactive gabapentin 600 mg ta blet RxNorm: 044701 1 Tablet(s) PO Q8 PRN 06/11/2013 06/11/2013 Inactive gabapentin 600 mg ta blet RxNorm: 196728 1 Tablet(s) PO Q8 PRN 06/11/2013 03/07/2014 Inactive Neurontin 600 mg tablet RxNorm: 575297 1 Tablet(s) PO Q8 PRN 06/10/2013 06/11/2013 Inactive Anusol-HC 25 mg supp ository RxNorm: 3995285 Suppository RTL INSE RT 1 RECTALLY DAILY NEEDED 04/24/2013 07/12/2014 Inactive metoprolol succinate ER 25 mg tablet,extended release 24 hr RxNorm: 674277 1 Tablet(s) PO daily 04/21/2013 08/03/2013 Inactive Premarin 0.625 mg/gr am Vaginal Cream RxNorm: 385017 1/2 Gram(s) VAG every other day 04/03/2013 10/29/2013 In active Klor-Con 10 mEq tabl et,extended release RxNorm: 321990 1 Tablet(s) PO daily 03/26/2013 03/20/2014 In active Klor-Con 10 mEq tabl et,extended release RxNorm: 606010 1 Tablet(s) PO BID 03/24/2013 03/23/2013 In active Klor-Con 10 mEq tabl et,extended release RxNorm: 125287 1 Tablet(s) PO BID 03/24/2013 03/25/2013 In active Klor-Con 10 mEq tabl et,extended release RxNorm: 201443 1 Tablet(s) PO BID 03/24/2013 03/23/2013 In active Augmentin 875 mg-125 mg tablet RxNorm: 841894 1 Tablet(s) PO BID 03/12/2013 03/18/2013 Inactive Augmentin 875 mg-125 mg tablet RxNorm: 977480 1 Tablet(s) PO BID 03/12/2013 03/11/2013 Inactive ciprofloxacin 500 mg tablet RxNorm: 953536 1 Tablet(s) PO BID 03/11/2013 03/17/2013 Inactive ciprofloxacin 500 mg tablet RxNorm: 821534 1 Tablet(s) PO BID 03/11/2013 03/10/2013 Inactive Crestor 10 mg tablet RxNorm: 669120 1 Tablet(s) PO daily 02/10/2013 02/09/2013 Inactive Crestor 10 mg tablet RxNorm: 870083 Tablet(s) PO TAKE ONE TABLET BY MOUTH EV DEANNA DAY 02/10/2013 04/15/2014 Inactive Singulair 10 mg tablet RxNorm: 536808 Tablet(s) PO TAKE ONE TABLET BY MOUTH EV DEANNA DAY 02/04/2013 04/29/2014 Inactive Kenalog 40 mg/mL Heaven p for Injection RxNorm: 8297152 1 Milliliter(s) Inj 11/21/2012 11/21/2012 In active Pennsaid 1.5 % topic al drops RxNorm: 073282 15-20 Drop(s) TOP QID 10/28/2012 11/21/2013 Inactive Micardis 80 mg tablet RxNorm: 495152 1 Tablet(s) PO daily 10/28/2012 10/22/2013 Inactive put this on file please, quantitiy incre ase Pennsaid 1.5 % Topic al Drops RxNorm: 783884 15-20 Drop(s) TOP QID 10/28/2012 10/27/2012 Inactive diltiazem ER 180 mg capsule,extended release RxNorm: 481618 1 Capsule(s) PO daily 10/14/2012 10/08/2013 In active Pyridium 200 mg tablet RxNorm: 6673309 1 Tablet(s) PO Q8 PRN 09/11/2012 10/12/2014 Inactive Flagyl 500 mg tablet RxNorm: 770625 1 Tablet(s) PO TID 09/04/2012 09/10/2012 Inactive Macrobid 100 mg capsule RxNorm: 038736 1 Capsule(s) PO BID 09/03/2012 09/02/2012 Inactive Macrobid 100 mg capsule RxNorm: 477547 1 Capsule(s) PO BID 09/03/2012 09/09/2012 Inactive sulfamethoxazole-tri methoprim 800 mg-160 mg tablet RxNorm: 404895 1 Tablet(s) PO BID 08/05/2012 08/14/2012 Inactive Lasix 40 mg tablet RxNorm: 466378 1 Tablet(s) PO BID pt is taking extra la six x 3 days, then every sunday and sunday take two lasix pills. 07/15/2012 07/09/2013 Inactive Synthroid 50 mcg tablet RxNorm: 251791 1 Tablet(s) PO daily 07/15/2012 07/09/2013 Inactive do not substitute the generic levothyrox ine for the synthroid brand name.....she needs brand name synthroid. Klor-Con 10 mEq tabl et,extended release RxNorm: 230885 1 Tablet(s) PO BID 07/15/2012 03/23/2013 In active Singulair 10 mg tablet RxNorm: 812095 1 Tablet(s) PO daily 06/12/2012 02/03/2013 Inactive Lexapro 10 mg tablet RxNorm: 778980 1/2 Tablet(s) PO daily 05/10/2012 06/03/2013 Inactive ProAir HFA 90 mcg/ac tuation Aerosol Inhaler RxNorm: 056980 2 INH Q6 PRN 04/23/2012 01/17/2016 In active Lexapro 10 mg tablet RxNorm: 410311 1/2 Tablet(s) PO daily 04/19/2012 05/09/2012 Inactive metoprolol succinate ER 50 mg tablet,extended release 24 hr RxNorm: 839100 1 Tablet(s) PO daily 04/09/2012 04/09/2012 Inactive Klor-Con 10 10 mEq t ablet,extended release RxNorm: 952133 1 Tablet(s) PO daily 04/01/2012 07/14/2012 In active metoprolol succinate ER 50 mg tablet,extended release 24 hr RxNorm: 925151 1/2 Tablet(s) PO BID 03/11/2012 04/08/2012 Inactive clonidine 0.1 mg Tab RxNorm: 537337 1 Tablet(s) PO BID 02/19/2012 03/12/2012 Inactive clonidine 0.1 mg Tab RxNorm: 819378 1 Tablet(s) PO BID 02/19/2012 02/18/2012 Inactive Micardis 80 mg Tab RxNorm: 311637 1 Tablet(s) PO daily 02/14/2012 02/13/2012 Inactive Micardis 80 mg tablet RxNorm: 078088 1 Tablet(s) PO daily 02/14/2012 10/27/2012 Inactive Synthroid 50 mcg tablet RxNorm: 823813 1 Tablet(s) PO daily 02/12/2012 07/14/2012 Inactive Tekturna 300 mg Tab RxNorm: 4785549 1 Tablet(s) PO daily 02/12/2012 03/12/2012 Inactive Lasix 40 mg Tab RxNorm: 113591 1 Tablet(s) PO daily 12/18/2011 12/17/2011 Inactive Lasix 40 mg tablet RxNorm: 275072 1 Tablet(s) PO daily 12/18/2011 07/14/2012 Inactive Anusol-HC 25 mg Supp ository RxNorm: 5874722 1 Suppository RTL QD AY PRN 12/04/2011 04/19/2012 In active lactobacillus acidop hilus Cap RxNorm: 1 Capsule(s) PO BID 11/21/2011 11/20/2011 Inactive lactobacillus acidop hilus Cap RxNorm: 1 Capsule(s) PO BID 11/21/2011 11/20/2011 Inactive Cipro 500 mg Tab RxNorm: 598249 1 Tablet(s) PO BID 11/21/2011 03/12/2012 Inactive lactobacillus acidop hilus Cap RxNorm: 1 Capsule(s) PO BID 11/21/2011 11/27/2011 Inactive lactobacillus acidop hilus Cap RxNorm: 1 Capsule(s) PO BID 11/21/2011 11/20/2011 Inactive Cipro 500 mg Tab RxNorm: 825487 1 Tablet(s) PO BID 11/21/2011 11/20/2011 Inactive Lexapro 10 mg Tab RxNorm: 298009 1 Tablet(s) PO daily 11/13/2011 11/12/2011 Inactive Lexapro 10 mg tablet RxNorm: 508321 1 Tablet(s) PO daily 11/13/2011 04/18/2012 Inactive amlodipine 10 mg Tab RxNorm: 773379 1 Tablet(s) PO daily 10/09/2011 12/03/2011 Inactive amlodipine 5 mg Tab RxNorm: 677322 1 Tablet(s) PO daily 09/20/2011 12/04/2011 Inactive Rocephin 500 mg Solu tion for Injection RxNorm: 360390 Inj 08/3009/20/2011 Inactive metoprolol succinate ER 25 mg 24 hr Tab RxNorm: 303910 1 Tablet(s) PO QHS 08/30/2011 09/20/2011 In active Ambien 10 mg Tab RxNorm: 015160 1 Tablet(s) PO HS PRN 08/30/2011 04/19/2012 Inactive Augmentin 875 mg-125 mg Tab RxNorm: 296380 1 Tablet(s) PO BID 08/25/2011 09/20/2011 Inactive Augmentin 875 mg-125 mg Tab RxNorm: 576572 1 Tablet(s) PO BID 08/25/2011 08/24/2011 Inactive Rocephin 500 mg Solu tion for Injection RxNorm: 317865 Inj 08/2308/23/2011 Inactive Levaquin 500 mg Tab RxNorm: 953891 1 Tablet(s) PO daily 08/23/2011 08/30/2011 Inactive chlordiazepoxide-cli dinium 5 mg-2.5 mg Cap RxNorm: 623088 1 Capsule(s) PO BID 07/10/2011 04/19/2012 In active q 12 hours prn metoprolol succinate ER 100 mg 24 hr Tab RxNorm: 117767 1 Tablet(s) PO daily 05/29/2011 03/12/2012 In active Synthroid 50 mcg Tab RxNorm: 974646 1 Tablet(s) PO daily 05/15/2011 08/12/2011 Inactive Ambien CR 12.5 mg Tab RxNorm: 201926 1 Tablet(s) PO HS PRN 05/09/2011 08/30/2011 Inactive Ambien 10 mg Tab RxNorm: 407009 1 Tablet(s) PO QHS 05/09/2011 06/07/2011 Inactive Nexium 40 mg Cap RxNorm: 895407 1 Capsule(s) PO daily 05/04/2011 03/12/2012 Inactive the patient had tried pepcid, otc priolosec, RX omperazole, failed them all Bactrim DS 800 mg-16 0 mg Tab RxNorm: 223546 1 Tablet(s) PO BID 04/19/2011 08/30/2011 Inactive triamcinolone aceton margie 40 mg/mL Susp for Injection RxNorm: 7961689 1 Milliliter(s) Inj UD 04/19/2011 04/19/2011 Inactive aspirin 81 mg Tab, D elayed Release RxNorm: 152116 1 Tablet(s) PO daily No Start Date Active Centrum Silver Ultra Women's oral RxNorm: [address] art Date Active Probiotic & Acidophi jerilyn oral RxNorm: oral No Start D ate Active Fish Oil 1,000 mg Cap RxNorm: 1 Capsule(s) PO daily No Start Date Active Tylenol Extra Streng th 500 mg tablet RxNorm: 641426 1 Tablet(s) PO BID as needed for pain No Start Date Active 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 Device RxNorm: Miscellaneous QHS sleep telemetry rn ea, 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 No Start Date Active Cymbalta 30 mg Cap RxNorm: 362976 1 Capsule(s) PO daily No Start Date 03/12/2012 Inactive Nexium 40 mg Cap RxNorm: 655006 Capsule(s) PO No Start Date 05/03/2011 Inactive Benadryl 25 mg capsule RxNorm: 5047919 1 Capsule(s) PO QHS No Start Date 01/03/2017 Inactive Klor-Con 10 10 mEq t ablet,extended release RxNorm: 603607 1 Tablet(s) PO daily No Start Date 03/31/2012 Inactive Metamucil Oral RxNorm: Oral No Start Date 10/12/2014 Inactive amlodipine 10 mg Tab RxNorm: 906398 1 Tablet(s) PO daily No Start Date 10/08/2011 Inactive Norvasc 5 mg tablet RxNorm: 465815 1 Tablet(s) PO daily No Start Date 10/12/2014 Inactive Lasix 40 mg Tab RxNorm: 836671 1 Tablet(s) PO daily No Start Date 12/17/2011 Inactive diltiazem ER (XR/XT) 240 mg capsule,extended release,controlled RxNorm: 546427 1 Capsule(s) PO daily No Start Date 04/22/2012 Inactive Synthroid 50 mcg Tab RxNorm: 057637 1 Tablet(s) PO daily No Start Date 05/14/2011 Inactive Flagyl 500 mg tablet RxNorm: 647417 1 Tablet(s) PO No Start Date 09/03/2012 Inactive one after each loose bm limit 8 per day Boniva 150 mg Tab RxNorm: 564411 1 Tablet(s) PO UD No Start Date 08/30/2011 Inactive monthly Singulair 10 mg tablet RxNorm: 009711 1 Tablet(s) PO daily No Start Date 06/11/2012 Inactive folic acid Oral RxNorm: Oral No Start Date 03/12/2012 Inactive potassium chloride E R 10 mEq tablet,extended release RxNorm: 223205 1 Tablet(s) PO daily No Start Date 01/03/2017 Inactive Librium 10 mg Cap RxNorm: 504694 Capsule(s) PO UD No Start Date 03/12/2012 Inactive q 12 hours prn Crestor 10 mg tablet RxNorm: 920584 1 Tablet(s) PO daily No Start Date 02/09/2013 Inactive multivitamin Cap RxNorm: 1 Capsule(s) PO daily No Start Date 01/17/2016 Inactive metoprolol succinate ER 100 mg 24 hr Tab RxNorm: 336871 1 Tablet(s) PO daily No Start Date 05/28/2011 Inactive Zithromax Z-Hebert 250 mg tablet RxNorm: 185774 Tablet(s) PO UD No Start Date 12/22/2015 Inactive diltiazem ER 180 mg capsule,extended release RxNorm: 929216 1 Capsule(s) PO daily No Start Date 10/13/2012 Inactive Tekturna 300 mg Tab RxNorm: 9565697 1 Tablet(s) PO daily samples No Start Date 02/11/2012 Inactive ProAir HFA 90 mcg/ac tuation Aerosol Inhaler RxNorm: 042972 2 INH Q6 PRN No Start Date 04/22/2012 Inactive chlordiazepoxide-cli dinium 5 mg-2.5 mg Cap RxNorm: 955174 1 Capsule(s) PO PRN No Start Date 07/09/2011 Inactive q 12 hours prn Butrans 5 mcg/hour T ransderm Patch RxNorm: 571027 1 Patch TD weekly No Start Date 05/26/2012 Inactive Lactobacillus acidop hilus tablet RxNorm: 4 Tablet(s) PO daily No Start Date 01/03/2017 Inactive Librax (with clidini um) 5 mg-2.5 mg capsule RxNorm: 150337 1 Capsule(s) PO BID No Start Date 04/18/2012 Inactive Nexium 40 mg capsule ,delayed release RxNorm: 873882 Capsule(s) PO PRN No Start Date 10/12/2014 Inactive Premarin 0.625 mg/gr am Vaginal Cream RxNorm: 339260 Gram(s) VAG No Start Date 03/12/2012 Inactive three times a week, small amt to vaginal tissuesample given metoprolol succinate ER 50 mg tablet,extended release 24 hr RxNorm: 793233 1 Tablet(s) PO daily No Start Date 03/10/2012 Inactive Zithromax Z-Hebert 250 mg tablet RxNorm: 121029 Tablet(s) PO UD No Start Date 08/13/2014 Inactive albuterol sulfate HF A 90 mcg/actuation aerosol inhaler RxNorm: 4385608 1 or2 Puff(s) INH Q4 PRN No Start Date 05/10/2014 Inactive Xanax 0.25 mg Tab RxNorm: 138579 1/2-1 Tablet(s) PO Q8 PRN No Start Date 03/12/2012 Inactive metoprolol succinate ER 25 mg tablet,extended release 24 hr RxNorm: 400985 1 Tablet(s) PO daily No Start Date 04/20/2013 Inactive Zithromax Z-Hebert 250 mg tablet RxNorm: 260738 1 Tablet(s) PO UD No Start Date 08/10/2016 Inactive Z PACK DIRECTED calcium carbonate 60 0 mg (1,500 mg) Tab RxNorm: 423344 1 Tablet(s) PO BID No Start Date 01/03/2017 Inactive albuterol sulfate HF A 90 mcg/Actuation Aerosol Inhaler RxNorm: 872034 1-2 Puff(s) INH Q4 PRN No Start Date 03/11/2012 Inactive Vitamin D3 2,000 uni t capsule RxNorm: 763257 1 Capsule(s) PO daily No Start Date 10/12/2014 Inactive Colace 100 mg Cap RxNorm: 6075771 1 Capsule(s) PO BID No Start Date 01/17/2016 Inactive Neurontin 600 mg tablet RxNorm: 213301 1 Tablet(s) PO Q8 PRN No Start Date 06/09/2013 Inactive Lomotil 2.5 mg-0.025 mg tablet RxNorm: 0683236 1 Tablet(s) PO No Start Date 06/14/2014 Inactive one after each loose bm limit 8 per day Micardis 80 mg Tab RxNorm: 884725 1 Tablet(s) PO daily No Start Date 12/03/2011 Inactive Pyridium 200 mg tablet RxNorm: 6256459 1 Tablet(s) PO Q8 PRN No Start Date 09/10/2012 Inactive Medication Administered Medication Codes Instruc tions Start Date Status Kenalog 40 mg/mL suspension for injection RxNorm: 6780954 1Milliliter 01/04/2017 N o longer Active Kenalog 40 mg/mL suspension for injection RxNorm: 1653508 Milliliter 08/23/2016 No longer Active Rocephin 500 mg solution for injection RxNorm: 935466 1Milliliter 05/07/2014 N o longer Active Kenalog 40 mg/mL suspension for injection RxNorm: 5025046 Milliliter 12/26/2013 No longer Active Rocephin 500 mg solution for injection RxNorm: 142480 12/26/2013 No longer A ctive Kenalog 40 mg/mL suspension for injection RxNorm: 4994085 Milliliter 11/12/2013 No longer Active Rocephin 500 mg solution for injection RxNorm: 075975 1Milliliter 10/09/2013 N o longer Active Kenalog 40 mg/mL Susp for Injection RxNorm: 8422977 1Milliliter 11/21/2012 N o longer Active Rocephin 500 mg Solution for Injection RxNorm: 682137 08/23/2011 No longer A ctive triamcinolone acetonide 40 mg/mL Susp for Injection RxNorm: 1386983 1MilliliterUD 04/19/2011 No longer Active Immunizations Vaccine [...] 11/12/2013 Laboratory exam ordered as part of [facility] general medical examination ICD-9: V72.62 11/12/2013 [...] 28.8 pg 03/09/2016 Cbc With Differential Ord2 [place]% 8.5 % 03/09/2016 Cbc With Differential Ord2 [...] 2.38 K/ul 03/09/2016 Cbc With Differential Ord2 [place] ABS# 0.8 K/ul 03/09/2016 Cbc With Differential Ord2 Eos ABS# 0.2 K/ul 03/09/2016 Cbc With Differential Ord2 Baso ABS# 0.1 K/ul 03/09/2016 Comp Metabolic Pgz214 NA 138 mEq/L 03/09/2016 Comp Metabolic Evs064 K 4.5 mEq/L 03/09/2016 Comp Metabolic Hfc515 CL 100 mEq/L 03/09/2016 Comp Metabolic Npu482 CO2 33.0 mEq/L 03/09/2016 Comp Metabolic Fer608 AN ION GAP 10 03/09/2016 Comp Metabolic Tnl953 GL UCOSE 94 mg/dL 03/09/2016 Comp Metabolic Fho824 Cr eat 0.6 mg/dL 03/09/2016 Comp Metabolic Ylf886 eG FR 106 ml/min/1.73m2 02/24 Comp Metabolic Myt644 BUN 10 mg/dL 03/09/2016 Comp Metabolic Avg822 B/ C Ratio 17.2 Ratio 03/09/2016 Comp Metabolic Yfi150 CA LCIUM 9.2 mg/dL 03/09/2016 Comp Metabolic Val903 AL K PHOS 64 U/L 03/09/2016 Comp Metabolic Vri374 T(SGOT) 20 U/L 03/09/2016 Comp Metabolic Osz093 AL T(SGPT) 11 U/L 03/09/2016 Comp Metabolic Ehl085 BI LI T 0.9 mg/dL 03/09/2016 Comp Metabolic Rbu169 AL BUMIN 4.0 g/dL 03/09/2016 Comp Metabolic Dol795 TP RO 6.1 g/dL 03/09/2016 Comp Metabolic Gbb210 GL OB 2.1 g/dL 03/09/2016 Comp Metabolic Tsw145 A/ G Ratio 1.9 Ratio 03/09/2016 Comp Metabolic Nkk291 Os mo 274 mOsmo 03/09/2016 Free T4 Qah963 FREE T4 0.90 ng/dL 03/09/2016 Lipid Ord30 [...] hTSH II 3.25 uIU/mL 09/07/2015 Free T4 Fjt682 FREE T4 0.79 ng/dL 09/07/2015 Comp Metabolic Rqb724 NA 137 mEq/L 09/07/2015 Comp Metabolic Qkl926 K 4.0 mEq/L 09/07/2015 Comp Metabolic Glb863 CL 98 mEq/L 09/07/2015 Comp Metabolic Wlr066 CO2 30.0 mEq/L 09/07/2015 Comp Metabolic Ooa691 AN ION GAP 13 09/07/2015 Comp Metabolic Uws564 GL UCOSE 101 mg/dL 09/07/2015 Comp Metabolic Lvm191 Cr eat 0.6 mg/dL 09/07/2015 Comp Metabolic Edw917 eG FR 111 ml/min/1.73m2 08/27 Comp Metabolic Vmz744 BUN 16 mg/dL 09/07/2015 Comp Metabolic Ixs611 B/ C Ratio 28.6 Ratio 09/07/2015 Comp Metabolic Xux641 CA LCIUM 9.4 mg/dL 09/07/2015 Comp Metabolic Bmi335 AL K PHOS 68 U/L 09/07/2015 Comp Metabolic Nla263 T(SGOT) 16 U/L 09/07/2015 Comp Metabolic Tvf188 AL T(SGPT) 12 U/L 09/07/2015 Comp Metabolic Jyb176 BI LI T 0.9 mg/dL 09/07/2015 Comp Metabolic Brv806 AL BUMIN 4.1 g/dL 09/07/2015 Comp Metabolic Qey375 TP RO 6.5 g/dL 09/07/2015 Comp Metabolic Vlw019 GL OB 2.4 g/dL 09/07/2015 Comp Metabolic Rlq648 A/ G Ratio 1.7 Ratio 09/07/2015 Comp Metabolic Aqu975 Os mo 275 mOsmo 09/07/2015 Cbc With [...] Differential Ord2 RDW 14.4 % 09/07/2015 TSH 6505053 TSH 0.920 uIU/ML 08/28/2014 CBC 1754135 WBC 12.5 10e9/L 08/28/2014 CBC 9335268 RBC 3.44 10e12/L 08/28/2014 CBC 7742695 HGB 10.3 g/dL 08/28/2014 CBC 0868710 HCT DET 33.9 % 08/28/2014 CBC 1685159 MCV 98.5 fL 08/28/2014 CBC 3772834 MCH 29.9 pg 08/28/2014 CBC 7872543 MCHC 30.4 g/dL 08/28/2014 CBC 2090749 PLT 412 10e9/L 08/28/2014 CBC 0251241 MPV 10.2 fL 08/28/2014 CBC 1473289 NNEKA % 68.5 % 08/28/2014 CBC 9123328 LY % 20.8 % 08/28/2014 CBC 1276894 MON % 9.9 % 08/28/2014 CBC 9732144 EOS % 0.6 % 08/28/2014 CBC 9352544 BASO % 0.2 % 08/28/2014 CBC 3191363 RDW 15.8 % 08/28/2014 CBC 4838065 ABS NNEKA 8.56 10e9/L 08/28/2014 CBC 2591561 ABS LYMPH 2.60 10e9/L 08/28/2014 CBC 7822124 ABS MONO 1.24 10e9/L 08/28/2014 CBC 3996028 ABS EOS 0.08 10e9/L 08/28/2014 CBC 6147165 ABS BASO 0.03 10e9/L 08/28/2014 CBC 0440483 RDW-SD 55.4 fL 08/28/2014 GFR CALC 2340986 GFR AA >60 ML/MIN 08/28/2014 GFR CALC 3579252 GFR NON -AA >60 ML/MIN 08/28/2014 LIPID GRP 8904822 HDL TE ST 69 MG/DL 08/28/2014 LIPID GRP TRIG 158 MG/DL 08/28/2014 LIPID GRP 8741382 TEST L DL 96 MG/DL 08/28/2014 LIPID GRP 9017332 CHOL 197 MG/DL 08/28/2014 LIPID GRP 0511406 RCHOL/ HDL 2.86 RATIO 08/28/2014 LIPID GRP NON-HD L CH 128 MG/DL 08/28/2014 CHEM 14 8883022 AST 14 U/L 08/28/2014 CHEM 14 6983811 ALT 13 IU/L 08/28/2014 CHEM 14 5213291 BUN 15 MG/DL 08/28/2014 CHEM 14 8762471 ALBUMIN 4.2 GM/DL 08/28/2014 CHEM 14 4171745 CHLORIDE 98 MMOL/L 08/28/2014 CHEM 14 9700855 BILI TOT 1.2 MG/DL 08/28/2014 CHEM 14 4474937 ALK PHOS 68 U/L 08/28/2014 CHEM 14 6655075 SODIUM 137 MMOL/L 08/28/2014 CHEM 14 0300111 CREATINI NE 0.68 MG/DL 08/28/2014 CHEM 14 2338491 CALCIUM 9.1 MG/DL 08/28/2014 CHEM 14 0913939 POTASSIUM 3.7 MMOL/L 08/28/2014 CHEM 14 7788049 PROT TOT 6.2 GM/DL 08/28/2014 CHEM 14 0497221 GLUCOSE 91 MG/DL 08/28/2014 CHEM 14 2980551 BICARB 31 MMOL/L 08/28/2014 CHEM 14 6429145 ANION GAP 8 MEQ/L 08/28/2014 FREE T4 5337788 FREE T4 1.44 NG/DL 08/28/2014 LIPID GRP HDL TE ST 73 MG/DL 04/16/2014 LIPID GRP TRIG 131 MG/DL 04/16/2014 LIPID GRP 9120660 TEST L DL 99 MG/DL 04/16/2014 LIPID GRP CHOL 198 MG/DL 04/16/2014 LIPID GRP 8265012 RCHOL/ HDL 2.71 RATIO 04/16/2014 LIPID GRP 8970913 NON-HD L CH 125 MG/DL 04/16/2014 CHEM 14 8384880 AST 17 U/L 04/14/2014 CHEM 14 8482188 ALT 17 IU/L 04/14/2014 CHEM 14 8663177 BUN 15 MG/DL 04/14/2014 CHEM 14 0136427 ALBUMIN 4.3 GM/DL 04/14/2014 CHEM 14 0936796 CHLORIDE 96 MMOL/L 04/14/2014 CHEM 14 3026252 BILI TOT 0.9 MG/DL 04/14/2014 CHEM 14 4792212 ALK PHOS 65 U/L 04/14/2014 CHEM 14 1129252 SODIUM 135 MMOL/L 04/14/2014 CHEM 14 9475200 CREATINI NE 0.69 MG/DL 04/14/2014 CHEM 14 5138524 CALCIUM 9.5 MG/DL 04/14/2014 CHEM 14 1350141 POTASSIUM 4.1 MMOL/L 04/14/2014 CHEM 14 6504151 PROT TOT 6.6 GM/DL 04/14/2014 CHEM 14 7820223 GLUCOSE 104 MG/DL 04/14/2014 CHEM 14 6950183 BICARB 34 MMOL/L 04/14/2014 CHEM 14 2118191 ANION GAP 5 MEQ/L 04/14/2014 A1C HPLC 4444339 A1C HPLC 93472-7 5.0 % 04/14/2014 TSH 0940275 TSH 2.140 uIU/ML 04/14/2014 FREE T4 1188039 FREE T4 1.56 NG/DL 04/14/2014 GFR CALC 2961519 GFR AA >60 ML/MIN 04/14/2014 GFR CALC 1427025 GFR NON -AA >60 ML/MIN 04/14/2014 CBC 2649061 WBC 12.8 10e9/L 04/14/2014 CBC 7081670 RBC 4.44 10e12/L 04/14/2014 CBC 6048084 HGB 13.2 g/dL 04/14/2014 CBC 6364678 HCT DET 41.4 % 04/14/2014 CBC 1002373 MCV 93.2 fL 04/14/2014 CBC 0250838 MCH 29.7 pg 04/14/2014 CBC 2123184 MCHC 31.9 g/dL 04/14/2014 CBC 7031829 PLT 383 10e9/L 04/14/2014 CBC 1088325 MPV 10.1 fL 04/14/2014 CBC 6660586 NNEKA % 65.5 % 04/14/2014 CBC 9153668 LY % 23.0 % 04/14/2014 CBC 0202339 MON % 9.9 % 04/14/2014 CBC 8734815 EOS % 1.3 % 04/14/2014 CBC 3954639 BASO % 0.3 % 04/14/2014 CBC 7988239 RDW 13.7 % 04/14/2014 CBC 4954541 ABS NNEKA 8.38 10e9/L 04/14/2014 CBC 3634999 ABS LYMPH 2.94 10e9/L 04/14/2014 CBC 1974922 ABS MONO 1.27 10e9/L 04/14/2014 CBC 7555715 ABS EOS 0.17 10e9/L 04/14/2014 CBC 8158873 ABS BASO 0.04 10e9/L 04/14/2014 CBC 2077201 RDW-SD 45.9 fL 04/14/2014 A1C HPLC 9320379 A1C HPLC 36075-2 4.9 % 11/13/2013 CHEM 14 5750510 AST 15 U/L 11/12/2013 CHEM 14 5058142 ALT 14 IU/L 11/12/2013 CHEM 14 1733119 BUN 14 MG/DL 11/12/2013 CHEM 14 3780514 ALBUMIN 4.3 GM/DL 11/12/2013 CHEM 14 9364820 CHLORIDE 101 MMOL/L 11/12/2013 CHEM 14 2123391 BILI TOT 0.9 MG/DL 11/12/2013 CHEM 14 4120696 ALK PHOS 67 U/L 11/12/2013 CHEM 14 1779627 SODIUM 139 MMOL/L 11/12/2013 CHEM 14 6951956 CREATINI NE 0.67 MG/DL 11/12/2013 CHEM 14 1076522 CALCIUM 9.5 MG/DL 11/12/2013 CHEM 14 4290448 POTASSIUM 4.1 MMOL/L 11/12/2013 CHEM 14 9459349 PROT TOT 6.5 GM/DL 11/12/2013 CHEM 14 2769607 GLUCOSE 102 MG/DL 11/12/2013 CHEM 14 8076250 BICARB 30 MMOL/L 11/12/2013 CHEM 14 5563017 ANION GAP 8 MEQ/L 11/12/2013 GFR CALC 6470856 GFR AA >60 ML/MIN 11/12/2013 GFR CALC 2947567 GFR NON -AA >60 ML/MIN 11/12/2013 TSH 7613533 TSH 2.445 uIU/ML 11/12/2013 FREE T4 9741805 FREE T4 1.09 NG/DL 11/12/2013 CBC 7873645 WBC 7.6 10e9/L 11/12/2013 CBC 7931383 RBC 4.42 10e12/L 11/12/2013 CBC 6767872 HGB 13.1 g/dL 11/12/2013 CBC 8366892 HCT DET 41.2 % 11/12/2013 CBC 5406022 MCV 93.2 fL 11/12/2013 CBC 1569775 MCH 29.6 pg 11/12/2013 CBC 3553024 MCHC 31.8 g/dL 11/12/2013 CBC 3322216 PLT 314 10e9/L 11/12/2013 CBC 7726544 MPV 10.4 fL 11/12/2013 CBC 8987023 NNEKA % 59.8 % 11/12/2013 CBC 3896641 LY % 28.1 % 11/12/2013 CBC 3945811 MON % 9.5 % 11/12/2013 CBC 1076309 EOS % 1.8 % 11/12/2013 CBC 9817213 BASO % 0.8 % 11/12/2013 CBC 0966177 RDW 13.8 % 11/12/2013 CBC 0421656 ABS NNEKA 4.54 10e9/L 11/12/2013 CBC 3874349 ABS LYMPH 2.14 10e9/L 11/12/2013 CBC 8460814 ABS MONO 0.72 10e9/L 11/12/2013 CBC 2804010 ABS EOS 0.14 10e9/L 11/12/2013 CBC 9168684 ABS BASO 0.06 10e9/L 11/12/2013 CBC 3723974 RDW-SD 46.0 fL 11/12/2013 LIPID GRP HDL TE ST 66 MG/DL 11/12/2013 LIPID GRP TRIG 130 MG/DL 11/12/2013 LIPID GRP 1089945 TEST L DL 108 MG/DL 11/12/2013 LIPID GRP 4215986 CHOL 200 MG/DL 11/12/2013 LIPID GRP 2658010 RCHOL/ HDL 3.03 RATIO 11/12/2013 HS ENE ZOS 3795132 HS VA R ZOS IMMUNE 04/04/2013 A1C 2451151 A1C HPLC 26212-3 5.2 % 04/03/2013 GFR CALC 0341065 GFR AA >60 ML/MIN 03/31/2013 GFR CALC 6390495 GFR NON -AA >60 ML/MIN 03/31/2013 TSH 4973913 TSH 2.689 uIU/ML 03/31/2013 LIPID GRP HDL TE ST 63 MG/DL 03/31/2013 LIPID GRP TRIG 157 MG/DL 03/31/2013 LIPID GRP TEST L DL 98 MG/DL 03/31/2013 LIPID GRP CHOL 192 MG/DL 03/31/2013 LIPID GRP RCHOL/ HDL 3.05 RATIO 03/31/2013 FREE T4 6987603 FREE T4 1.19 NG/DL 03/31/2013 CHEM 14 8034230 AST 16 U/L 03/31/2013 CHEM 14 5835059 ALT 12 IU/L 03/31/2013 CHEM 14 4246566 BUN 17 MG/DL 03/31/2013 CHEM 14 4590255 ALBUMIN 4.5 GM/DL 03/31/2013 CHEM 14 7939160 CHLORIDE 98 MMOL/L 03/31/2013 CHEM 14 7876593 BILI TOT 0.7 MG/DL 03/31/2013 CHEM 14 8911862 ALK PHOS 53 U/L 03/31/2013 CHEM 14 5931402 SODIUM 137 MMOL/L 03/31/2013 CHEM 14 0309965 CREATINI NE 0.66 MG/DL 03/31/2013 CHEM 14 1559789 CALCIUM 9.6 MG/DL 03/31/2013 CHEM 14 5630714 POTASSIUM 4.2 MMOL/L 03/31/2013 CHEM 14 2039084 PROT TOT 6.7 GM/DL 03/31/2013 CHEM 14 7843058 GLUCOSE 101 MG/DL 03/31/2013 CHEM 14 3527801 BICARB 33 MMOL/L 03/31/2013 CHEM 14 4821506 ANION GAP 6 MEQ/L 03/31/2013 CBC 6555881 WBC 7.5 10e9/L 03/31/2013 CBC 3582725 RBC 4.39 10e12/L 03/31/2013 CBC 5326540 HGB 13.0 g/dL 03/31/2013 CBC 5353906 HCT DET 40.2 % 03/31/2013 CBC 1209010 MCV 91.6 fL 03/31/2013 CBC 6978028 MCH 29.6 pg 03/31/2013 CBC 4801263 MCHC 32.3 g/dL 03/31/2013 CBC 7981306 PLT 305 10e9/L 03/31/2013 CBC 6608061 MPV 10.4 fL 03/31/2013 CBC 8915699 NNEKA % 56.8 % 03/31/2013 CBC 2586821 LY % 30.3 % 03/31/2013 CBC 8197453 MON % 9.8 % 03/31/2013 CBC 9558612 EOS % 2.3 % 03/31/2013 CBC 2795678 BASO % 0.8 % 03/31/2013 CBC 8882002 RDW 13.2 % 03/31/2013 CBC 3441850 ABS NNEKA 4.26 10e9/L 03/31/2013 CBC 4059846 ABS LYMPH 2.27 10e9/L 03/31/2013 CBC 9444429 ABS MONO 0.74 10e9/L 03/31/2013 CBC 9425077 ABS EOS 0.17 10e9/L 03/31/2013 CBC 4386318 ABS BASO 0.06 10e9/L 03/31/2013 CBC 5426117 RDW-SD 43.2 fL 03/31/2013 LIPID GRP HDL TE ST 49 MG/DL 09/11/2012 LIPID GRP TRIG 134 MG/DL 09/11/2012 LIPID GRP TEST L DL 81 MG/DL 09/11/2012 LIPID GRP CHOL 157 MG/DL 09/11/2012 LIPID GRP RCHOL/ HDL 3.20 RATIO 09/11/2012 TSH 9291119 TSH 2.118 uIU/ML 09/11/2012 CBC 2525508 WBC 7.5 10e9/L 09/11/2012 CBC 7217266 RBC 3.99 10e12/L 09/11/2012 CBC 5325672 HGB 11.7 g/dL 09/11/2012 CBC 3920882 HCT DET 37.7 % 09/11/2012 CBC 3363242 MCV 94.5 fL 09/11/2012 CBC 1603158 MCH 29.3 pg 09/11/2012 CBC 2034512 MCHC 31.0 g/dL 09/11/2012 CBC 3659960 PLT 384 10e9/L 09/11/2012 CBC 7633070 MPV 11.0 fL 09/11/2012 CBC 6541096 NNEKA % 51.7 % 09/11/2012 CBC 0644890 LY % 35.2 % 09/11/2012 CBC 8521658 MON % 10.4 % 09/11/2012 CBC 1578409 EOS % 2.3 % 09/11/2012 CBC 0854001 BASO % 0.4 % 09/11/2012 CBC 4212714 RDW 14.2 % 09/11/2012 CBC 6182242 ABS NNEKA 3.88 10e9/L 09/11/2012 CBC 2397232 ABS LYMPH 2.64 10e9/L 09/11/2012 CBC 4078352 ABS MONO 0.78 10e9/L 09/11/2012 CBC 9414848 ABS EOS 0.17 10e9/L 09/11/2012 CBC 3101357 ABS BASO 0.03 10e9/L 09/11/2012 CBC 6622297 RDW-SD 47.1 fL 09/11/2012 CHEM 14 3199422 AST 16 U/L 09/11/2012 CHEM 14 2336090 ALT 15 IU/L 09/11/2012 CHEM 14 5345781 BUN 11 MG/DL 09/11/2012 CHEM 14 5197973 ALBUMIN 4.2 GM/DL 09/11/2012 CHEM 14 2755768 CHLORIDE 101 MMOL/L 09/11/2012 CHEM 14 9899696 BILI TOT 0.8 MG/DL 09/11/2012 CHEM 14 9858166 ALK PHOS 57 U/L 09/11/2012 CHEM 14 3039240 SODIUM 141 MMOL/L 09/11/2012 CHEM 14 5372999 CREATINI NE 0.62 MG/DL 09/11/2012 CHEM 14 0723088 CALCIUM 9.5 MG/DL 09/11/2012 CHEM 14 4882730 POTASSIUM 4.7 MMOL/L 09/11/2012 CHEM 14 1181462 PROT TOT 6.6 GM/DL 09/11/2012 CHEM 14 2368061 GLUCOSE 90 MG/DL 09/11/2012 CHEM 14 0369293 BICARB 32 MMOL/L 09/11/2012 CHEM 14 2061831 ANION GAP 8 MEQ/L 09/11/2012 A1C HPLC 6159649 A1C HPLC 20449-5 4.5 % 09/11/2012 GFR CALC 8226077 GFR AA >60 ML/MIN 09/11/2012 GFR CALC 5233535 GFR NON -AA >60 ML/MIN 09/11/2012 FREE T4 1584938 FREE T4 1.30 NG/DL 09/11/2012 BMP 0363661 GLUCOSE 93 MG/DL 04/16/2012 BMP 0830023 CREATININE 0.64 MG/DL 04/16/2012 BMP BUN 12 MG/DL 04/16/2012 BMP SODIUM 139 MMOL/L 04/16/2012 BMP 0362664 POTASSIUM 4.1 MMOL/L 04/16/2012 BMP CHLORIDE 99 MMOL/L 04/16/2012 BMP BICARB 32 MMOL/L 04/16/2012 BMP ANION GAP 8 MEQ/L 04/16/2012 BMP CALCIUM 9.8 MG/DL 04/16/2012 CBC 7634040 WBC 8.5 10e9/L 04/16/2012 CBC 9368883 RBC 3.98 10e12/L 04/16/2012 CBC 0752014 HGB 11.5 g/dL 04/16/2012 CBC 9161971 HCT DET 36.7 % 04/16/2012 CBC 6704724 MCV 92.2 fL 04/16/2012 CBC 0195891 MCH 28.9 pg 04/16/2012 CBC 3076812 MCHC 31.3 g/dL 04/16/2012 CBC 5018804 PLT 321 10e9/L 04/16/2012 CBC 6533205 MPV 10.2 fL 04/16/2012 CBC 8202150 NNEKA % 64.3 % 04/16/2012 CBC 8762162 LY % 24.3 % 04/16/2012 CBC 9805164 MON % 9.0 % 04/16/2012 CBC 6407158 EOS % 1.9 % 04/16/2012 CBC 4791736 BASO % 0.5 % 04/16/2012 CBC 7062133 RDW 13.7 % 04/16/2012 CBC 9129980 ABS NNEKA 5.47 10e9/L 04/16/2012 CBC 5911235 ABS LYMPH 2.07 10e9/L 04/16/2012 CBC 9548028 ABS MONO 0.77 10e9/L 04/16/2012 CBC 2850224 ABS EOS 0.16 10e9/L 04/16/2012 CBC 9378005 ABS BASO 0.04 10e9/L 04/16/2012 CBC 4388463 RDW-SD 44.6 fL 04/16/2012 GFR CALC 0685011 GFR AA >60 ML/MIN 04/16/2012 GFR CALC 8384962 GFR NON -AA >60 ML/MIN 04/16/2012 URINALYSIS NONAUTO W/O SCOPE 29282 Specific [place] 1.015 DateTime(Free Text in Aprima) URINALYSIS NONAUTO W/O SCOPE 29833 PH 6.0 DateTime(Free Jim t in Apr) URINALYSIS NONAUTO W/O SCOPE 12043 GLUCOSE neg DateTime(Free Jim t in Apr) URINALYSIS NONAUTO W/O SCOPE 09949 Protein neg DateTime(Free Jim t in Apr[employer]) URINALYSIS NONAUTO W/O SCOPE 43081 Blood 1+ DateTime(Free Text in Apr[employer]) URINALYSIS NONAUTO W/O SCOPE 02327 Bilirubin neg DateTime(Free Jim t in Apr[employer]) URINALYSIS NONAUTO W/O SCOPE 89030 Ketones neg DateTime(Free Jim t in Apr[employer]) URINALYSIS NONAUTO W/O SCOPE 52361 Urobilinogen neg DateTime(Free Text in Apr[employer]) URINALYSIS NONAUTO W/O SCOPE 18374 Nitrite positive DateTime(Madi e Text in ) URINALYSIS NONAUTO W/O SCOPE 25862 Leukocytes 1+ DateTime(Free Text in Apr) UA 57638 Specific [place] 1.015 DateTime(Free Text in Apr ) UA 27681 PH 5 DateTime(Free Text in Apr ) UA 34442 GLUCOSE neg DateTime(Free Text in Aprima ) UA 69866 Protein neg DateTime(Free Text in Aprima ) UA 97402 Blood neg DateTime(Free Text in Apr ) UA 52611 Bilirubin neg DateTime(Free Text in Apr ) UA 13807 Ketones neg DateTime(Free Text in Aprima ) UA 33955 Urobilinogen neg DateTime(Free Text in Aprima ) UA 09996 Nitrite neg DateTime(Free Text in Apr ) UA 19169 Leukocytes neg DateTime(Free Text in Apr ) URINALYSIS NONAUTO W/O SCOPE 69626 Specific [place] 1.010 DateTime(Free Text in Apr) URINALYSIS NONAUTO W/O SCOPE 22764 PH 5.0 DateTime(Free Jim t in Apr) URINALYSIS NONAUTO W/O SCOPE 34008 GLUCOSE NEG DateTime(Free Jim t in Apr) URINALYSIS NONAUTO W/O SCOPE 57698 Protein NEG DateTime(Free Jim t in Apr[employer]) URINALYSIS NONAUTO W/O SCOPE 95349 Blood NEG DateTime(Free Jim t in Apr[employer]) URINALYSIS NONAUTO W/O SCOPE 10536 Bilirubin NEG DateTime(Free Jim t in Apr[employer]) URINALYSIS NONAUTO W/O SCOPE 59979 Ketones NEG DateTime(Free Jim t in Apr[employer]) URINALYSIS NONAUTO W/O SCOPE 65263 Urobilinogen NEG DateTime(Free Text in Apr[employer]) URINALYSIS NONAUTO W/O SCOPE 08479 Nitrite NEG DateTime(Free Jim t in Apr[employer]) URINALYSIS NONAUTO W/O SCOPE 92175 Leukocytes ++ DateTime(Free Text in Apr[employer]) URINALYSIS NONAUTO W/O SCOPE 54418 Specific [place] 1.010 DateTime(Free Text in Apr[employer]) URINALYSIS NONAUTO W/O SCOPE 20457 PH 6.0 DateTime(Free Jim t in Apr[employer]) URINALYSIS NONAUTO W/O SCOPE 40817 GLUCOSE NEG DateTime(Free Jim t in Aprima) URINALYSIS NONAUTO W/O SCOPE 10238 Protein NEG DateTime(Free Jim t in Apr[employer]) URINALYSIS NONAUTO W/O SCOPE 83428 Blood NEG DateTime(Free Jim t in Apr[employer]) URINALYSIS NONAUTO W/O SCOPE 96762 Bilirubin NEG DateTime(Free Jim t in Apr[employer]) URINALYSIS NONAUTO W/O SCOPE 21642 Ketones NEG DateTime(Free Jim t in Apr[employer]) URINALYSIS NONAUTO W/O SCOPE 43778 Urobilinogen NEG DateTime(Free Text in Apr[employer]) URINALYSIS NONAUTO W/O SCOPE 13666 Nitrite NEG DateTime(Free Jim t in Apr[employer]) URINALYSIS NONAUTO W/O SCOPE 25452 Leukocytes NEG DateTime(Free Text in Apr[employer]) URINALYSIS NONAUTO W/O SCOPE 62684 Specific [place] 1.010 DateTime(Free Text in Apr[employer]) URINALYSIS NONAUTO W/O SCOPE 83063 PH 5 DateTime(Free Text in Apr[employer]) URINALYSIS NONAUTO W/O SCOPE 66928 GLUCOSE neg DateTime(Free Jim t in Aprima) URINALYSIS NONAUTO W/O SCOPE 90969 Protein neg DateTime(Free Jim t in Aprima) URINALYSIS NONAUTO W/O SCOPE 12340 Blood neg DateTime(Free Jim t in Apr[employer]) URINALYSIS NONAUTO W/O SCOPE 14771 Bilirubin neg DateTime(Free Jim t in Apr[employer]) URINALYSIS NONAUTO W/O SCOPE 81207 Ketones neg DateTime(Free Jim t in Apr[employer]) URINALYSIS NONAUTO W/O SCOPE 92478 Urobilinogen neg DateTime(Free Text in Apr[employer]) URINALYSIS NONAUTO W/O SCOPE 70407 Nitrite neg DateTime(Free Jim t in Apr[employer]) URINALYSIS NONAUTO W/O SCOPE 62592 Leukocytes 1+ DateTime(Free Text in Apr[employer]) URINALYSIS NONAUTO W/O SCOPE 10712 Specific [place] 1.015 DateTime(Free Text in Apr[employer]) URINALYSIS NONAUTO W/O SCOPE 81590 PH 5 DateTime(Free Text in Apr[employer]) URINALYSIS NONAUTO W/O SCOPE 91964 GLUCOSE neg DateTime(Free Jim t in Apr[employer]) URINALYSIS NONAUTO W/O SCOPE 95231 Protein neg DateTime(Free Jim t in Aprima) URINALYSIS NONAUTO W/O SCOPE 33201 Blood neg DateTime(Free Jim t in Apr[employer]) URINALYSIS NONAUTO W/O SCOPE 47883 Bilirubin neg DateTime(Free Jim t in Apr[employer]) URINALYSIS NONAUTO W/O SCOPE 75042 Ketones neg DateTime(Free Jim t in Apr[employer]) URINALYSIS NONAUTO W/O SCOPE 00091 Urobilinogen neg DateTime(Free Text in Aprima) URINALYSIS NONAUTO W/O SCOPE 21703 Nitrite neg DateTime(Free Jim t in Aprima) URINALYSIS NONAUTO W/O SCOPE 02066 Leukocytes neg DateTime(Free Text in Apr[employer]) URINALYSIS NONAUTO W/O SCOPE 22503 Specific [place] 1.015 DateTime(Free Text in Aprima) URINALYSIS NONAUTO W/O SCOPE 36517 PH 7 DateTime(Free Text in Aprima) URINALYSIS NONAUTO W/O SCOPE 01072 GLUCOSE DateTime(Free Text i n Aprima) URINALYSIS NONAUTO W/O SCOPE 02846 Protein DateTime(Free Text i n Aprima) URINALYSIS NONAUTO W/O SCOPE 11835 Blood DateTime(Free Text i n Aprima) URINALYSIS NONAUTO W/O SCOPE 23097 Bilirubin DateTime(Free Text i n Aprima) URINALYSIS NONAUTO W/O SCOPE 15817 Ketones DateTime(Free Text i n Aprima) URINALYSIS NONAUTO W/O SCOPE 02522 Urobilinogen DateTime(Free Text in ) URINALYSIS NONAUTO W/O SCOPE 94801 Nitrite DateTime(Free Text i n ) URINALYSIS NONAUTO W/O SCOPE 04593 Leukocytes DateTime(Fr ee Text in ) UA 04697 Specific [place] 6 DateTime(Free Text in ) UA 35142 PH 1.020 DateTime(Free Text in ) UA 24667 GLUCOSE N DateTime(Free Text in ) UA 71299 Protein N DateTime(Free Text in ) UA 42077 Blood N DateTime(Free Text in ) UA 59429 Bilirubin N DateTime(Free Text in ) UA 42642 Ketones N DateTime(Free Text in ) UA 12969 Urobilinogen N DateTime(Free Text in ) UA 61116 Nitrite POSITIVE DateTime(Free Text in ma) UA 29746 Leukocytes SMALL DateTime(Free Text in ) Review [...] Lymphatic neck nodes Overall: anterior cervical chain roibna ign 08/30/2011 None Full Exam - General [...] Procedure Codes Date THER/PROPH/DIAG INJ SC/IM CPT-4: 26908Fjebmpu 01/04/2017 TRIAMCINOLONE ACET I [place] NOS CPT-4: R8525Xhcrsvn 01/04/2017 TRIAMCINOLONE ACET I [place] NOS CPT-4: Y6201Bjoinpo 08/23/2016 THER/PROPH/DIAG INJ SC/IM CPT-4: 15856Mqsrnly 08/23/2016 ROUTINE VENIPUNCTURE CPT-4: 72026Eyfeevc 08/28/2014 ADMIN INFLUENZA VIRU S VAC Assigned to/Yancy Howell CPT-4: K8062Vfnbwix 05/20/2014 FLU VAC NO PRSV 4 VA L 3 YRS+ CPT-4: 08463Wpgrcgi 05/20/2014 URINALYSIS NONAUTO W /O SCOPE CPT-4: 65590Gzxgbcb 05/07/2014 ROCEPHIN, PER 250 MG CPT-4: K1112Gtcrrcp 05/07/2014 ROUTINE VENIPUNCTURE CPT-4: 94288Bwsitnx 04/14/2014 DESTRUCT PREMALG LES ION CPT-4: 51403Vbtqlln 01/27/2014 DESTRUCT PREMALG LES 2-14 CPT-4: 29556Vvqxfwr 01/27/2014 ROCEPHIN, PER 250 MG CPT-4: D0091Xofoypf 12/26/2013 TRIAMCINOLONE ACET I [place] NOS CPT-4: H5806Zuckgtt 12/26/2013 TRIAMCINOLONE ACET I [place] NOS CPT-4: X5817Emdxrai 11/12/2013 ROUTINE VENIPUNCTURE CPT-4: 69262Adhvxhs 11/12/2013 ROCEPHIN, PER 250 MG CPT-4: X1057Jrgtffk 10/09/2013 ROUTINE VENIPUNCTURE CPT-4: 32356Wfaydld 03/31/2013 URINALYSIS NONAUTO W /O SCOPE CPT-4: 07461Nenywqn 03/21/2013 TRIAMCINOLONE ACET I [place] NOS CPT-4: S1597Rhizopt 11/21/2012 URINALYSIS NONAUTO W /O SCOPE CPT-4: 74122Cyigszx 09/30/2012 URINALYSIS NONAUTO W /O SCOPE CPT-4: 51624Sutqtqb 09/11/2012 ROUTINE VENIPUNCTURE CPT-4: 94266Dhsffwl 09/11/2012 PRESCRIP TRANSMIT A ERX SY CPT-4: F0154Xjtaxev 08/05/2012 ADMIN INFLUENZA VIRU S VAC CPT-4: T3123Bgfliyd 05/03/2012 FLULAVAL VACC, 3 YRS & >, IM CPT-4: L0009Krtlkwh 05/03/2012 EXC TR-EXT B9+ANA 0 .6-1 CM CPT-4: 80828Pfyghms 04/23/2012 ROUTINE VENIPUNCTURE CPT-4: 04795Ervcezy 04/16/2012 ROUTINE VENIPUNCTURE CPT-4: 60722Rvxomcu 12/21/2011 PRESCRIP TRANSMIT A ERX SY CPT-4: S1015Kkydyjm 12/04/2011 URINALYSIS NONAUTO W /O SCOPE CPT-4: 62037Uvsvydu 12/01/2011 URINALYSIS NONAUTO W /O SCOPE CPT-4: 94540Rsusnol 11/20/2011 PRESCRIP TRANSMIT A ERX SY CPT-4: R1654Jpoqwlg 09/20/2011 URINALYSIS NONAUTO W /O SCOPE CPT-4: 65768Vxlvxyj 09/06/2011 ROCEPHIN, PER 250 MG CPT-4: U7984Jsdmdvk 08/30/2011 THER/PROPH/DIAG INJ SC/IM CPT-4: 14816Vvlthxj 08/30/2011 ROUTINE VENIPUNCTURE CPT-4: 94580Lpddqoc 08/30/2011 PRESCRIP TRANSMIT A ERX SY CPT-4: D8232Mcccfyn 08/30/2011 ROCEPHIN, PER 250 MG CPT-4: A3642Nwiqxrt 08/23/2011 THER/PROPH/DIAG INJ SC/IM CPT-4: 39905Kcftjum 08/23/2011 URINALYSIS NONAUTO W /O SCOPE CPT-4: 61352Cedcvgh 08/23/2011 PRESCRIP TRANSMIT A ERX SY CPT-4: N7805Gejbzvq 08/23/2011 ROUTINE VENIPUNCTURE CPT-4: 40097Zecrxdc 05/04/2011 PRESCRIP TRANSMIT A ERX SY CPT-4: Q5343Ywdnwhg 05/04/2011 TRIAMCINOLONE ACET I [place] NOS CPT-4: H0790Ukemuhp 04/19/2011 THER/PROPH/DIAG INJ SC/IM CPT-4: 93356Driotdr 04/19/2011 PRESCRIP TRANSMIT A ERX SY CPT-4: V1837Pcduvyu 04/19/2011 Vital Signs Date Vital 02/05/2017 Blood Pressure 1: 146/74 Code: 8480-6 Heart Rate 1: 52 bpm SpO2: 95% Temperature: 36.5 (C ) / 97.7 (F) 02/02/2017 Blood Pressure 1: 152/72 Code: 8480-6 BMI: 39.7 Code: 20292-6 Heart Rate 1: 58 bpm Height: 5'3" SpO2: 95% Weight: 224 lbs 01/15/2017 Blood Pressure 1: 148/70 Code: 8480-6 Heart Rate 1: 65 bpm Height: SpO2: 96% Weight: 01/04/2017 Blood Pressure 1: 132/60 Code: 8480-6 BMI: 39.9 Code: 74594-5 Heart Rate 1: 57 bpm Height: 5'3" SpO2: 95% Weight: 225 lbs 09/07/2016 Blood Pressure 1: 144/70 Code: 8480-6 BMI: 37.6 Code: 65613-8 Heart Rate 1: 50 bpm Height: 5'3" SpO2: 96% Weight: 212 lbs 07/06/2016 Blood Pressure 1: 134/64 Code: 8480-6 BMI: 38.6 Code: 51355-7 Heart Rate 1: 60 bpm Height: 5'3" SpO2: 94% Weight: 218 lbs 06/16/2016 Blood Pressure 1: 140/80 Code: 8480-6 06/08/2016 Blood Pressure 1: 150/76 Code: 8480-6 BMI: 38.4 Code: 95140-4 Heart Rate 1: 60 bpm Height: 5'3" SpO2: 96% Weight: 217 lbs 04/17/2016 Blood Pressure 1: 150/70 Code: 8480-6 Heart Rate 1: 63 bpm SpO2: 93% 04/06/2016 Blood Pressure 1: 154/52 Code: 8480-6 BMI: 38.6 Code: 61031-7 Heart Rate 1: 54 bpm Height: 5'3" SpO2: 95% Weight: 218 lbs 03/10/2016 Blood Pressure 1: 160/64 Code: 8480-6 03/09/2016 Blood Pressure 1: 152/78 Code: 8480-6 BMI: 38.8 Code: 44204-6 Heart Rate 1: 63 bpm Height: 5'3" SpO2: 92% Weight: 219 lbs 01/18/2016 Blood Pressure 1: 144/72 Code: 8480-6 BMI: 39.0 Code: 93317-2 Heart Rate 1: 68 bpm Height: 5'3" SpO2: 93% Weight: 220 lbs 09/09/2015 Blood Pressure 1: 126/68 Code: 8480-6 BMI: 39.0 Code: 20012-3 Height: 5'3" SpO2: 94% Weight: 220 lbs 12/25/2014 Blood Pressure 1: 138/68 Code: 8480-6 BMI: 37.7 Code: 60422-3 Heart Rate 1: 68 bpm Height: 5'3" SpO2: 97% Weight: 213 lbs 10/13/2014 Blood Pressure 1: 118/68 Code: 8480-6 BMI: 39.3 Code: 36662-6 Heart Rate 1: 54 bpm Height: 5'3" SpO2: 98% Weight: 222 lbs 08/28/2014 Blood Pressure 1: 140/62 Code: 8480-6 Heart Rate 1: 60 bpm Weight: 212 lbs 08/07/2014 Blood Pressure 1: 138/62 Code: 8480-6 05/20/2014 [place] rature: 35.5 (C) / 95.9 (F) 05/07/2014 Blood Pressure 1: 148/70 Code: 8480-6 BMI: 38.6 Code: 87538-7 Heart Rate 1: 61 bpm Height: 5'3" SpO2: 96% Weight: 218 lbs 04/16/2014 Blood Pressure 1: 142/68 Code: 8480-6 BMI: 37.6 Code: 26034-2 Heart Rate 1: 58 bpm Height: 5'3" Weight: 212 lbs 01/27/2014 Blood Pressure 1: 122/62 Code: 8480-6 Blood Pressure 2: 118/60 Code: 8480-6 Heart Rate 1: 60 bpm Weight: 210 lbs 01/21/2014 Blood Pressure 1: 130/62 Code: 8480-6 BMI: 37.2 Code: 24479-7 Heart Rate 1: 68 bpm Height: 5'3" SpO2: 97% Weight: 210 lbs 01/07/2014 Blood Pressure 1: 108/58 Code: 8480-6 BMI: 36.8 Code: 88467-4 Heart Rate 1: 44 bpm Height: 5'3" Weight: 208 lbs 12/26/2013 Blood Pressure 1: 122/60 Code: 8480-6 BMI: 37.6 Code: 01657-4 Heart Rate 1: 56 bpm Height: 5'3" [...] 1: 136/72 Code: 8480-6 BMI: 36.7 Code: 84393-2 Heart Rate 1: 76 bpm Height: 5'3" Weight: 207 lbs 01/06/2013 Blood Pressure 1: 130/70 Code: 8480-6 BMI: 36.5 Code: 95834-5 Heart Rate 1: 72 bpm Height: 5'3" [...] 1: 138/66 Code: 8480-6 BMI: 38.3 Code: 91636-0 Heart Rate 1: 60 bpm Height: 5'3" [...] 1: 130/60 Code: 8480-6 BMI: 38.3 Code: 25405-3 Heart Rate 1: 60 bpm Height: 5'3" Weight: 216 lbs 12/25/2011 Blood Pressure 1: 142/76 Code: 8480-6 Heart Rate 1: 60 bpm Respiratory Rate: 20 bpm Weight: 213 lbs 12/04/2011 Blood Pressure 1: 142/64 Code: 8480-6 BMI: 38.6 Code: 77989-6 Heart Rate 1: 59 bpm Height: 5'3" Respiratory Rate: 20 bpm SpO2: 96% Weight: 218 lbs 09/20/2011 Blood Pressure 1: 166/68 Code: 8480-6 BMI: 36.5 Code: 53479-0 Heart Rate 1: 50 bpm Height: 5'3" [...] 1: 120/60 Code: 8480-6 BMI: 36.8 Code: 76370-3 Heart Rate 1: 64 bpm Height: 5'3" Respiratory Rate: 16 bpm Weight: 211 lbs 05/04/2011 Blood Pressure 1: 142/58 Code: 8480-6 BMI: 38.0 Code: 53541-5 Heart Rate 1: 56 bpm Height: 5'2" Respiratory Rate: 12 bpm Weight: 211 lbs 04/19/2011 Blood Pressure 1: 138/51 Code: 8480-6 BMI: 35.5 Code: 75440-5 Heart Rate 1: 66 bpm Height: 5'4" [...] Alleviating Factors medication 06/08/2016 None 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 06/08/2016 None hypothyroid Onset and [...] Alleviating Factors medication 04/06/2016 None 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 04/06/2016 None hypothyroid Onset and [...] Alleviating Factors medication 03/09/2016 None 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 03/09/2016 None hypothyroid Onset and [...] Alleviating Factors medication 01/18/2016 None 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 P ATIENT, LEVEL III Diagnosis: Gastro-esophageal reflux 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[ICD10: K21.9] Diagnosis: Urinary tract infection, site not specified[ICD10: N39.0] Diagnosis: Localized edema[ICD10: R60.0] Chaparrita Flanagan MD, [facility] CPT- 4: 28101 02/02/2017 ([id number]) 00835 EST. P ATIENT, LEVEL III Diagnosis: Acute recurrent maxillary sinusitis[ICD10: J01.01] Diagnosis: Cough[ICD10: R05] Chaparrita Flanagan MD, [facility] CPT-4: 56814 01/15/2017 ([id number]) 98025 EST. P ATIENT, LEVEL IV Diagnosis: Essential (primary) hypertension[ICD10: I10] Diagnosis: Mixed hyperlipidemia[ICD10: E78.2] Diagnosis: Pain in left knee[ICD10: M25.562] Diagnosis: Allergic rhinitis due to pollen[ICD10: J30.1] Concepción Flanagan MD, C CPT-4: 87602 01/04/2017 ([id number]) 04928 EST. P ATIENT, LEVEL IV Diagnosis: Essential (primary) hypertension[ICD10: I10] Diagnosis: Major depressive disorder, recurrent, moderate[ICD10: F33.1] Concepción Flanagan MD, [facility] CPT-4: 63126 09/07/2016 ([id number]) 25520 EST. P ATIENT, LEVEL III Diagnosis: Essential (primary) hypertension[ICD10: I10] Concepción Flanagan MD, C CPT-4: 01516 07/06/2016 ([id number]) Miscellaneou s no charge Diagnosis: Essential (primary) hypertension[ICD10: I10] Hayley Flanagan MD, [facility] CPT-4: 34027 06/16/2016 ([id number]) 10857 EST. P ATIENT, LEVEL III Diagnosis: Essential (primary) hypertension[ICD10: I10] Diagnosis: Generalized anxiety disorder[ICD10: F41.1] Concepción Flanagan MD, [facility] CPT-4: 96104 06/08/2016 ([id number]) Miscellaneou s no charge Diagnosis: Essential (primary) hypertension[ICD10: I10] Hayley Flanagan MD, [facility] CPT-4: 54965 04/17/2016 ([id number]) 60730 EST. P ATIENT, LEVEL IV Diagnosis: Essential (primary) hypertension[ICD10: I10] Diagnosis: Localized edema[ICD10: R60.0] Concepción Flanagan MD, [facility] CPT-4: 79822 04/06/2016 ([id number]) Miscellaneou s no charge Diagnosis: Essential (primary) hypertension[ICD10: I10] Chaparrita Flanagan MD, [facility] CPT-4: 87403 03/10/2016 ([id number]) 18756 EST. P ATIENT, LEVEL IV Diagnosis: Essential (primary) hypertension[ICD10: I10] Diagnosis: Mixed hyperlipidemia[ICD10: E78.2] Diagnosis: Hypothyroidism, unspecified[ICD10: E03.9] Diagnosis: Generalized anxiety disorder[ICD10: F41.1] Chaparrita Flanagan MD, [facility] CPT-4: 79190 03/09/2016 ([id number]) 50867 EST. 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 P ATIENT, LEVEL IV Diagnosis: ESSENTIAL HYPERTENSION[ICD9: 401.9] Diagnosis: Sleep apnea[ICD9: 780.57] Diagnosis: ANEMIA[ICD9: 285.9] Concepción Flanagan MD, [facility] CPT-4: 63743 12/25/2014 ([id number]) 40559 EST. P ATIENT, LEVEL III Diagnosis: ESSENTIAL HYPERTENSION[ICD9: 401.9] Concepción Flanagan MD, [facility] CPT- 4: 92015 10/13/2014 ([id number]) 49391 EST. P ATIENT, LEVEL IV Diagnosis: HYPOTHYROIDISM[ICD9: 244.9] Diagnosis: HYPERLIPIDEMIA[ICD9: 272.4] Diagnosis: ESSENTIAL HYPERTENSION[ICD9: 401.9] Diagnosis: ENCNTR LONG-RX USE NEC[ICD9: V58.69] Diagnosis: Sleep apnea[ICD9: 780.57] Concepción Flanagan MD, [facility] CPT-4: 28425 08/28/2014 ([id number]) Miscellaneou s no charge Diagnosis: ESSENTIAL HYPERTENSION[ICD9: 401.9] Concepción Flanagan MD, [facility] CPT- 4: 00282 08/07/2014 ([id number]) 74508 EST. P ATIENT, LEVEL IV Diagnosis: EDEMA[ICD9: 782.3] Diagnosis: ACUTE SINUSITIS[ICD9: 461.9] Diagnosis: Urinary tract infection[ICD9: 599.0] Diagnosis: Nocturnal hypoxia[ICD9: 799.02] [facility] CPT- 4: 02635 05/07/2014 ([id number]) 87606 EST. P ATIENT, LEVEL IV Diagnosis: ESSENTIAL HYPERTENSION[ICD9: 401.9] Diagnosis: HYPERLIPIDEMIA[ICD9: 272.4] Diagnosis: JOINT PAIN-L/LEG[ICD9: 719.46] [facility] CPT-4: 88656 04/16/2014 ([id number]) 73835 EST. P ATIENT, LEVEL IV Diagnosis: ESSENTIAL HYPERTENSION[SNOMED: 84314763] Diagnosis: HYPERLIPIDEMIA[ICD9: 272.4] Diagnosis: HYPOTHYROIDISM[ICD9: 244.9] Diagnosis: Nocturnal hypoxaemia[ICD9: 799.02] Concepción Flanagan MD, [facility] CPT- 4: 74242 01/21/2014 ([id number]) 88517 EST. P ATIENT, LEVEL III Diagnosis: ESSENTIAL HYPERTENSION[SNOMED: 26973233] Diagnosis: Bradycardia[ICD9: 427.89] Concepción Flanagan MD, [facility] CPT-4: 32373 01/07/2014 ([id number]) 57160 EST. P ATIENT, LEVEL III Diagnosis: ACUTE URI[ICD9: 465.9] Diagnosis: COUGH[ICD9: 786.2] Chaparrita Flanagan MD, [facility] CPT-4: 37969 12/26/2013 ([id number]) 66497 EST. P ATIENT, LEVEL III Diagnosis: ALLERGIC RHINITIS[ICD9: 477.9] Diagnosis: HYPERLIPIDEMIA[ICD9: 272.4] Diagnosis: ESSENTIAL HYPERTENSION[SNOMED: 41389793] Diagnosis: ENCNTR LONG-RX USE NEC[ICD9: V58.69] Diagnosis: Laboratory exam ordered as part of routine general medical examination[ICD9: V72.62] Diagnosis: HYPOTHYROIDISM[ICD9: 244.9] Chaparrita Flanagan MD, [facility] CPT- 4: 74164 11/12/2013 ([id number]) 29356 EST. P ATIENT, LEVEL III Diagnosis: Acute maxillary sinusitis[ICD9: 461.0] Chaparrita Flanagan MD, [facility] CPT-4: 38901 10/09/2013 ([id number]) 94937 EST. P ATIENT, LEVEL III Diagnosis: ESSENTIAL HYPERTENSION[SNOMED: 96901445] Diagnosis: DYSURIA[ICD9: 788.1] Concepción Flanagan MD, [facility] CPT-4: 44388 04/03/2013 ([id number]) 48937 EST. P ATIENT, LEVEL III Diagnosis: ESSENTIAL HYPERTENSION[SNOMED: 46415071] Diagnosis: EDEMA[ICD9: 782.3] Concepción Flanagan MD, [facility] CPT-4: 92287 01/06/2013 ([id number]) 74284 EST. P ATIENT, LEVEL III Diagnosis: UNSPECIFIED ASTHMA[ICD9: 493.90] Diagnosis: Cough[ICD9: 786.2] Diagnosis: ALLERGIC RHINITIS[ICD9: 477.9] Concepción Flanagan MD [facility] CPT-4: 41204 11/21/2012 ([id number]) 98537 EST. P ATIENT, LEVEL IV Diagnosis: ESSENTIAL HYPERTENSION[SNOMED: 47863043] Diagnosis: EDEMA[ICD9: 782.3] Concepción Flanagan MD, [facility] CPT-4: 13715 10/28/2012 ([id number]) 31799 EST. P ATIENT, LEVEL IV Diagnosis: ESSENTIAL HYPERTENSION[SNOMED: 61527591] Diagnosis: EDEMA[ICD9: 782.3] Diagnosis: Knee pain, right[ICD9: 719.46] Diagnosis: Urge incontinence[ICD9: 788.31] Concepción Flanagan MD, [facility] CPT-4: 96194 09/30/2012 ([id number]) 44312 EST. P ATIENT, LEVEL III Diagnosis: ESSENTIAL HYPERTENSION[SNOMED: 99139799] Concepción Flanagan MD, C CPT-4: 67259 08/14/2012 ([id number]) 55546 EST. P ATIENT, LEVEL III Diagnosis: CELLULITIS OF LEG[ICD9: 682.6] Concepción Flanagan MD, [facility] CPT-4: 52585 08/05/2012 ([id number]) 15089 EST. P ATIENT, LEVEL IV Diagnosis: ESSENTIAL HYPERTENSION[SNOMED: 88273611] Diagnosis: EDEMA[ICD9: 782.3] Diagnosis: Constipation[ICD9: 564.00] Concepción Flanagan MD, [facility] CPT-4: 84697 07/15/2012 ([id number]) 96422 EST. P ATIENT, LEVEL III Diagnosis: Subungual contusion of toenail[ICD9: 924.3] Concepción Flanagan MD, C CPT-4: 30758 05/27/2012 Postop follow up vis it related to original px Diagnosis: BENIGN ERLINDA SKIN ARM[ICD9: 216.6] Diagnosis: BENIGN ERLINDA SKIN TRUNK[ICD9: 216.5] Concepción Flanagan MD, [facility] CPT- 4: 37918 05/03/2012 ([id number]) 27742 EST. P ATIENT, LEVEL IV Diagnosis: ESSENTIAL HYPERTENSION[SNOMED: 05949783] Diagnosis: OA (osteoarthritis) of knee[ICD9: 715.96] Diagnosis: EDEMA[ICD9: 782.3] Concepción Flanagan MD, [facility] CPT-4: 58287 03/25/2012 53821 EST. PATIENT, LEVEL IV Diagnosis: ESSENTIAL HYPERTENSION[SNOMED: 07031441] Diagnosis: Abdominal bloating[ICD9: 787.3] Concepción Flanagan MD, [facility] CPT-4: 13046 03/12/2012 ([id number]) 03648 EST. P ATIENT, LEVEL IV Diagnosis: ESSENTIAL HYPERTENSION[SNOMED: 78898785] Diagnosis: EDEMA[ICD9: 782.3] Concepción Flanagan MD, [facility] CPT-4: 49181 01/23/2012 ([id number]) 72486 EST. P ATIENT, LEVEL III Diagnosis: Breast pain, left[ICD9: 611.71] Chaparrita Flanagan MD, [facility] CPT- 4: 26831 01/12/2012 ([id number]) 97118 EST. P ATIENT, LEVEL IV Diagnosis: ESSENTIAL HYPERTENSION[SNOMED: 11387517] Diagnosis: DEPRESSIVE DISORDER NEC[ICD9: 311] Diagnosis: ANXIETY STATE[ICD9: 300.00] Concepción Flanagan MD, [facility] CPT-4: 66323 12/25/2011 ([id number]) 95900 EST. P ATIENT, LEVEL IV Diagnosis: ESSENTIAL HYPERTENSION[SNOMED: 88940265] Diagnosis: EDEMA[ICD9: 782.3] Concepción Flanagan MD, [facility] CPT-4: 83511 12/04/2011 ([id number]) 45623 EST. P ATIENT, LEVEL IV Diagnosis: ESSENTIAL HYPERTENSION[SNOMED: 25730590] Diagnosis: DEPRESSIVE DISORDER NEC[ICD9: 311] Concepción Flanagan MD, [facility] CPT- 4: 67898 09/20/2011 82267 EST. PATIENT, LEVEL IV Diagnosis: Dysuria[ICD9: 788.1] Diagnosis: ESSENTIAL HYPERTENSION[SNOMED: 94580065] Diagnosis: Anxiety[ICD9: 300.00] Concepción Flanagan MD, [facility] CPT-4: 54592 09/06/2011 ([id number]) 46697 EST. P ATIENT, LEVEL IV Diagnosis: LUMBAGO[ICD9: 724.2] Diagnosis: ESSENTIAL HYPERTENSION[SNOMED: 34788656] Concepción Flanagan MD, [facility] CPT-4: 60730 08/30/2011 25929 EST. PATIENT, LEVEL III Diagnosis: ACUTE SINUSITIS[ICD9: 461.9] Diagnosis: Urinary frequency[ICD9: 788.41] Chaparrita Flanagan MD, [facility] CPT- 4: 90470 08/23/2011 27837 EST. PATIENT, LEVEL III Diagnosis: Lesion of labia[ICD9: 624.8] Chaparrita Flanagan MD, [facility] CPT- 4: 02396 08/09/2011 57641 EST. PATIENT, LEVEL IV Diagnosis: HYPOTHYROIDISM[ICD9: 244.9] Diagnosis: HYPERLIPIDEMIA[ICD9: 272.4] Diagnosis: BP (high blood pressure)[SNOMED: 13953964] Diagnosis: Knee pain, bilateral[ICD9: 719.46] Diagnosis: ESOPHAGEAL REFLUX[ICD9: 530.81] Concepción Flanagan MD, [facility] CPT-4: 94580 05/04/2011 45054 EST. PATIENT, LEVEL III Diagnosis: ACUTE URI[ICD9: 465.9] Diagnosis: Asthma[ICD9: 493.90] Diagnosis: Esophageal reflux[ICD9: 530.81] Chaparrita Flanagan MD, [facility] CPT- 4: 58877 04/19/2011 Plan of Care Planned Activity Notes C odes Status Date Visit Plan: Zgyau-uyxzyvauov-qlkfi zpack when finished with cipro-follow up chest [...] improvement. 01/15/2017 Appointment: [phone] (10 min) [...] today 01/04/2017 Appointment: [facility]agan [id number] (15 min) Moderate 01/04/2017 Patient Education: Patient [...] medication (lexapro). 09/07/2016 Appointment: Concepción Flanagan WPtel: [id number] (30 min) Complex 09/07/2016 Patient Education: Patient [...] at home. 07/06/2016 Appointment: Concepción Flanagan WPtel: [id number] [place] (15 min) Moderate 07/06/2016 Patient Education: [...] DAILY 06/08/2016 Appointment: Concepción Flanagan WPtel: [id number] [place] (15 min) Moderate 06/08/2016 Patient Education: [...] edema. 04/06/2016 Appointment: Concepción Flanagan WPtel: [id number] (15 min) Moderate 04/06/2016 Patient Education: Patient [...] for Mikala. 01/18/2016 Appointment: Concepción Flanagan WPtel: [address] [place], [place] [id number] (15 min) Moderate 01/18/2016 Patient Education: Patient [...] discuss with her son who is a Machinist Supervisor [employer] - and consider re- evaluation for nasal pillows with her cpap since she could not tolerate a face mask cpap in the past. 12/25/2014 Appointment: Concepción Flanagan tel: [address] [place], [place] [id number] Follow up 12/25/2014 Patient Education: Patient Medication [...] home. 10/13/2014 Appointment: Concepción Flanagan WPtel: [id number] Follow up 10/13/2014 Patient Education: Patient Medication [...] . 08/28/2014 Appointment: Concepción Flanagan WPtel: [id number] Follow up 08/28/2014 Patient Education: Patient Medication [...] creatinine. 04/16/2014 Appointment: Concepción Flanagan WPtel: [id number] Follow up 04/16/2014 Patient Education: Patient Medication Summary Completed 04/16/2014 Patient Education: Patient Medication Summary Completed 04/14/2014 Patient Education: Hypertension Completed 04/14/2014 Visit Plan: Wound Instructions - Pt was instruced to keep the wound clean, wash with antibacterial soap, use triple antibiotic ointment, call if redness, pustular drainage, or any other acute conerns. 01/27/2014 Appointment: Concepción Flanagan WPtel: [id number] [place] Surgical Procedure 01/27/2014 Patient Education: Patient [...] home eval. 2013 Appointment: Concepción Flanagan WPtel: [id number] Follow up 01/21/2014 Patient Education: Patient Medication Summary Completed 01/21/2014 Patient Education: Hypertension Completed 01/21/2014 Visit Plan: Hypotension - Bradycardia - pt to stop her metroprolol - check bp and heart rate twice daily and monitor symptoms. Call if bp uncontrolled- or heart rate to elevated. 01/07/2014 Appointment: Concepción Flanagan WPtel: [id number] Follow up 01/07/2014 Patient Education: Hypertension Completed [...] swallow 2013 Appointment: Chaparrita Arrieta WPtel: [phone] [phone] [facility] 11/12/2013 Patient Education: Patient Medication Summary Completed 11/12/2013 Patient Education: Hypertension Completed 11/12/2013 Visit Plan: Sinusitis - Pt has acute inf ection - pain in face, maxillary region, Pt informed to use decongestant, RX given to patient, sinus rinses also recommended. Call if symptoms do not show improvement. 10/09/2013 Appointment: Chaparrita Arrieta [facility]Ptel[phone] [facility] 10/09/2013 Patient Education: Patient Medication Summary Completed 10/09/2013 Visit Plan: Hypertension - well controll ed - continue with current medications, continue with no added salt diet. Pt has been encouraged to exercise daily.The pt has been advised to call the office if there are any acute concerns about change in blood pressure readings at home.Dysuria - check UA 2012 Appointment: Concepción Flanagan WPtel: [id number] Follow up 04/03/2013 Patient Education: Patient Medication Summary Completed 04/03/2013 Patient Education: Hypertension Completed 04/03/2013 Patient Education: Patient Medication Summary Completed 03/31/2013 Patient Education: Hypertension Completed 03/31/2013 Visit Plan: ua performed - [facility] 03/21/2013 Appointment: Concepción Flanagan WPtel: [id number] Lab Draw 03/21/2013 Patient Education: Patient Medication [...] peripheral edema. 01/06/2013 Appointment: Concepción Flanagan WPtel: [phone] [id number] Follow up 01/06/2013 Patient Education: Patient Medication Summary Completed 01/06/2013 Patient Education: Hypertension Completed 01/06/2013 Visit Plan: Oylzyrckx-Wsnusy-fmeszvar no t well controlled-KENALOG injection today in [...] peripheral edema. 10/28/2012 Appointment: Concepción Flanagan WPtel: [id number] Follow up 10/28/2012 Patient Education: Patient Medication [...] treatment recommendations. 09/30/2012 Appointment: Concepción Flanagan WPtel: [id number] Follow up 09/30/2012 Patient Education: Patient Medication Summary Completed 09/30/2012 Patient Education: Hypertension Completed 09/30/2012 Appointment: Concepción Flanagan WPtel: [id number] [place] Lab Draw 09/11/2012 Patient Education: Patient [...] resolved 2011 Appointment: Concepción Flanagan WPtel: [id number] Follow up 08/14/2012 Patient Education: Patient Medication Summary Completed 08/14/2012 Patient Education: Hypertension Completed 08/14/2012 Visit Plan: Cellulitis - start with gene gail Bactrim DS as directed, return to clinic as previously directed, call for acute change in symptoms, worsening redness, warmth, discharge. 08/05/2012 Appointment: Concepción Flanagan WPtel: [id number] Follow up 08/05/2012 Patient Education: Patient Medication [...] soften stools. 07/15/2012 Appointment: Concepción Flanagan WPtel: [id number] [facility] follow up 07/15/2012 Patient [...] nail. 05/27/2012 Appointment: Concepción Flanagan WPtel: [id number] [place] Other 05/27/2012 Patient Education: Patient Medication Summary Completed 05/27/2012 Appointment: Chaparrita Arrieta WPtel: [phone] [phone] Follow up 05/16/2012 Visit Plan: [...] vaccine 05/03/2012 Appointment: Chaparrita Arrieta WPtel: [phone] [phone] Follow up 05/03/2012 Patient Education: Patient Medication Summary Completed 05/03/2012 Visit Plan: Wound Instructions - Pt was instruced to keep the wound clean, wash with antibacterial soap, use triple antibiotic ointment, call if redness, pustular drainage, or any other acute conerns. 04/23/2012 Appointment: Concepción Flanagan WPtel: [id number] Surgical Procedure 04/23/2012 Patient Education: Patient Medication Summary Completed 04/23/2012 Appointment: Concepción lFanagan WPtel: [id number] Lab Draw 04/16/2012 Patient Education: Patient Medication [...] pressure readings at home.Recommend follow up with webfocus developer for clearance before knee surgery. Will [...] to thighs. 2011 Appointment: Concepción Flanagan WPtel: [id number] [place] Other 03/25/2012 Patient Education: Patient Medication [...] [phone] [place] Other 03/12/2012 Patient Education: Patient Medication [...] at home. 01/23/2012 Appointment: Concepción Flanagan WPtel: [address] [place] [address] Other 01/23/2012 Patient Education: Patient Medication Summary Completed 01/23/2012 Patient Education: High Blood Pressure: Essential Hypertension Completed 01/23/2012 Visit Plan: Breast kexn-pfcr-kvkwleift n atural and expected course of this diagnosis and to alert me if symptoms do not follow expected course, or if any worse. Plan for diagnostic mammogram, in meantime, instructed patient to get more supportive bra, use anti-inflammatories and monitor symptoms. Patient verbalized understanding of plan. 01/12/2012 Appointment: Chaparrita Arrieta WPtel: [address] [place], [place] [id number] Other 01/12/2012 Patient Education: Patient Medication Summary [...] Concepción Flanagan WPtel: [facility] [address] Other 12/25/2011 Patient Education: Patient Medication [...] COMPRESSION SOCKS. 2011 Appointment: Concepción Flanagan WPtel: [id number] [place] Other 12/04/2011 Patient Education: Patient Medication Summary Completed 12/04/2011 Patient Education: High Blood Pressure: Essential Hypertension Completed 12/04/2011 Appointment: Chaparrita Arrieta WPtel: [phone] [place] Lab Draw 12/01/2011 Patient Education: Patient Medication Summary Completed 12/01/2011 Appointment: Concepción Flanagan WPtel: [id number] [place] Lab Draw 11/20/2011 Patient Education: Patient [...] acutely worsen. 09/20/2011 Appointment: Concepción Flanagan WPtel: [id number] Other 09/20/2011 Patient Education: Patient Medication Summary Completed 09/20/2011 Patient Education: High Blood Pressure: Essential Hypertension Completed 09/20/2011 Appointment: Concepción Flanagan WPtel: [id number] Other 09/13/2011 Visit Plan: Hypertension - The [...] and benefits of treament with the above medications.Ivanxxh-mjdbuzht-RV negative 09/06/2011 Appointment: Chaparrita Arrieta [facility]Ptel[phone] Other 09/06/2011 Patient Education: Patient Medication Summary [...] improve or if they worsen. 08/30/2011 Appointment: Concepcinó Flanagan WPtel: [id number] [place] Other 08/30/2011 Patient Education: Patient Medication [...] patient's pharmacy. 2010 Appointment: Chaparrita Arrieta [facility]Ptel[phone] [place] Other 08/23/2011 Patient Education: Patient Medication Summary Completed 08/23/2011 Visit Plan: Labial cyst-discussed natura l and expected course of this diagnosis and to alert me if symtpoms do not follow expected course, or if any worse. Patient and verbalized understanding. 08/09/2011 Appointment: Chaparrita Arrieta WPtel: [facility] [place] [address] Other 08/09/2011 Patient Education: Patient Medication Summary [...] not improving. 05/04/2011 Appointment: Concepción Flanagan WPtel: [address] [place] [address] [place] Other 05/04/2011 Patient Education: Patient Medication [...] Chaparrita Arrieta WPtel: [phone] [facility] 04/19/2011 Patient Education: Patient Medication Summary Completed [...] twice daily and monitor symptoms. . Breast auti-bkee-rrawkeldx natural and expected course of this diagnosis [...] discuss with her son who is a [employer] - and consider re-evaluation for nasal pillows [...] do not improve, or if any worse.. Euduoosib-Jteyaq-dxndruqu not well controlled-KENALOG injection today in the [...] benefits of treament with the above medications. Dfiflwu-yffukejd-UU negative . Hypertension - wel l controlled [...] I will order an overnight oxygen for Miakla. . Hypertension - per home reports, her [...] if symptoms acutely worsen. Appointment with [facility]-Dr. Luther For your [...] readings at home. Recommend follow up with webf[employer] developer for clearance before knee surgery. Will [...] daytime fatigue improved-will fax today's note to [employer] for re-certification of oxygen. . Hypertension - [...] daytime fatigue improved-will fax today's note to [employer] for re-certification of oxygen. . Hypertension - [...] levaquin also sent to patient's pharmacy. . Vmtve-ipmgsrcobh-p tart zpack when finished with cipro- follow [...]
--- OUTSIDE RECORDS SUMMARY | 2020-01-05 01:48 | XMS REPORT | CCD ---
Author Author Mikala Arrieta Organization [facility] Address [address] [place] [address] Phone Care Team Providers Care Meat Manager Name Role Phone [facility] Unavailable CCM Unavailable Summary Purpose Interface Exchange Insurance Providers Payer name Policy type / Coverage type Covered libertarian ID Effective Begin Date Effective End Date WPS Medicare Part B 50 [id number] 2015 Unknown AARP [id number] 2015 Unknown Family history Father Diagnosis Age At Onset Stroke Unknown Mother Diagnosis Age At Onset Tuberculosis Unknown Social History Social History Element Codes Description Effective Dates Education level Unknown College Graduate 04/23/2012 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 Marital status Unknown M arried 04/19/[address]: 0533847 Quit over 10 years ago 40 pack/year history 04/19/[address]: 556551674 Never drinks alcohol 04/19/2011 Allergies, Adverse Reactions, Alerts Allergies, Adverse Reactions, Alerts data not found Past Medical History Illness Codes Condition Status Onset Date Resolved Date Gastro-esophageal re flux 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 ICD-9: 530.81 ICD-10: K21.9 Active 02/02/2017 Unknown Localized edema ICD-9: 782.3 ICD-10: R60.0 Active 05/07/2014 Unknown Urinary tract infect ion, site not specified ICD-9: 599.0 ICD-10: N39.0 Active 02/02/2017 Unknown Acute recurrent maxi llary sinusitis ICD-9: 461.0 ICD-10: J01.01 Active 01/15/2017 Unknown Cough ICD-9: 786.2 ICD-10: R05 Active 01/15/2017 Unknown Allergic rhinitis du e [...] Condition Codes Effectiv e Dates Condition Status Gastro-esophageal re flux 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 ICD-9: 530.81 ICD-10: K21.9 02/02/2017 Active Localized edema ICD-9: 782.3 ICD-10: R60.0 05/07/2014 Active Urinary tract infect ion, site not specified ICD-9: 599.0 ICD-10: N39.0 02/02/2017 Active Acute recurrent maxi llary sinusitis ICD-9: 461.0 ICD-10: J01.01 01/15/2017 Active Cough ICD-9: 786.2 ICD-10: R05 01/15/2017 Active Allergic rhinitis du e to [...] Date Stop Date Sta tus Fill Instructions Cipro 500 mg tablet RxNorm: 473110 1 Tablet(s) PO BID 02/01/2017 02/07/2017 Active prednisone 20 mg tablet RxNorm: 649660 1 Tablet(s) PO BID 01/15/2017 01/19/2017 Inactive take 1 in the morning and 1 at noon Anusol-HC 25 mg rect al suppository RxNorm: 7121854 1 Suppository PRN IN SERT 1 RECTALLY DAILY NEEDED 01/04/2017 04/03/2017 Active calcium carbonate 60 0 mg calcium (1,500 mg) tablet RxNorm: 839600 1 Tablet(s) PO daily 01/04/2017 No Stop Date Active Kenalog 40 mg/mL heaven pension for injection RxNorm: 8809179 1 Milliliter(s) Inj 01/04/2017 01/04/2017 In active Lasix 40 mg tablet RxNorm: 001272 TAKE ONE TABLET BY MOUTH DAILY 12/20/2016 09/15/2017 Ac tive Cartia XT 240 mg cap chad,extended release RxNorm: 969745 TAKE ONE CAPSULE BY M OUTH DAILY 12/20/2016 09/15/2017 Active Synthroid 50 mcg tablet RxNorm: 128045 1 Tablet(s) PO daily TAKE ONE TABLET BY MOUTH DAILY 11/27/2016 05/25/2017 Active Must be name brand meloxicam 15 mg tablet RxNorm: 848643 Tablet(s) TAKE ONE TABLET BY MOUTH ONE T MARÍA ELENA A DAY 11/27/2016 06/24/2017 Active Crestor 10 mg tablet RxNorm: 352287 TAKE 1 TABLET BY MOUTH ON SUNDAY, , AND Sunday11/13/2016 10/14/2017 Active Lexapro 10 mg tablet RxNorm: 315943 1 Tablet(s) PO daily 09/07/2016 01/03/2017 Inactive please make sure that her RX for lexapro is a 10mg dose - delete the 5mg lexapro pill - this is FYI Klor-Con 10 mEq tabl et,extended release RxNorm: 735190 TAKE ONE TABLET BY MO UTH TWICE A DAY 08/29/2016 02/24/2017 Active Kenalog 40 mg/mL heaven pension for injection RxNorm: 7683566 Milliliter(s) Inj 08/23/2016 08/23/2016 In active cefdinir 300 mg capsule RxNorm: 918306 1 Capsule(s) PO BID 08/22/2016 08/28/2016 Inactive take probiotic while on abx Zithromax Z-Hebert 250 mg tablet RxNorm: 456111 1 Tablet(s) PO UD 08/11/2016 09/06/2016 Inactive Z PACK DIRECTED Lexapro 5 mg tablet RxNorm: 456328 TAKE ONE TABLET BY MOUTH EVERY EVENING 07/18/2016 09/06/2016 In active Singulair 10 mg tablet RxNorm: 796901 TAKE ONE TABLET BY MOUTH EVERY DAY 07/17/2016 01/07/2018 Ac tive Benicar 40 mg tablet RxNorm: 242179 TAKE ONE TABLET BY MOUTH DAILY 07/17/2016 07/11/2017 Ac tive Lexapro 10 mg tablet RxNorm: 019716 1 Tablet(s) PO daily 06/16/2016 09/06/2016 Inactive diltiazem ER 180 mg capsule,extended release RxNorm: 154256 TAKE ONE CAPSULE BY M OUTH DAILY 06/15/2016 07/05/2016 Inactive Lexapro 10 mg tablet RxNorm: 867388 1 Tablet(s) PO daily 06/08/2016 06/15/2016 Inactive gabapentin 600 mg ta blet RxNorm: 311051 TAKE ONE TABLET BY MO [facility] EVERY NIGHT AT BEDTIME NEEDED 04/27/2016 01/21/2017 Inactive Cartia XT 240 mg cap chad,extended release RxNorm: 360688 1 Capsule(s) PO daily TAKE ONE CAPSULE BY MOUTH ONCE A DAY 04/17/2016 12/19/2016 Inactive Benicar 40 mg tablet RxNorm: 424170 1 Tablet(s) PO daily 04/17/2016 07/16/2016 Inactive she can do 90 days if she wants to Lexapro 5 mg tablet RxNorm: 260356 1 Tablet(s) PO QPM 03/09/2016 06/07/2016 Inactive Colace 100 mg capsule RxNorm: 4583999 1 Capsule(s) PO daily 01/18/2016 No Stop Date Active hydrocodone 5 mg-patrizia taminophen 325 mg tablet RxNorm: 681232 1/2 Tablet(s) PO QID as needed 01/18/2016 02/16/2016 Inactive Synthroid 50 mcg tablet RxNorm: 834938 1 Tablet(s) PO daily TAKE ONE TABLET BY MOUTH DAILY 01/18/2016 07/15/2016 Inactive Synthroid 50 mcg tablet RxNorm: 498410 Tablet(s) TAKE ONE TABLET BY MOUTH DAILY 12/23/2015 01/17/2016 In active Benicar 40 mg tablet RxNorm: 140531 1 Tablet(s) PO daily 12/13/2015 12/12/2015 Inactive Benicar 40 mg tablet RxNorm: 656019 1 Tablet(s) PO daily 12/13/2015 04/10/2016 Inactive meloxicam 15 mg tablet RxNorm: 364677 TAKE ONE TABLET BY MOUTH ONE TIME A DAY 11/12/2015 06/08/2016 In active meloxicam 15 mg tablet RxNorm: 408218 Tablet(s) TAKE ONE TABLET BY MOUTH ONE T MARÍA ELENA A DAY 11/11/2015 11/11/2015 Inactive Lasix 40 mg tablet RxNorm: 410109 Tablet(s) TAKE ONE TABLET BY MOUTH EVERY DAY 10/19/2015 12/19/2016 Inactive diltiazem ER 180 mg capsule,extended release RxNorm: 342992 1 Capsule(s) daily TA KE ONE CAPSULE BY MOUTH ONCE A DAY 09/27/2015 04/16/2016 Inactive Crestor 10 mg tablet RxNorm: 011936 1 Tablet(s) PO Sun09/17/2015 07/12/2016 Inactive [SAVINGS FOR UNINSURED PATIENTS -- BIN:0 29789, PCN: ASPROD1, Group: [id number], ID# [id number], Process claim through [employer], for questions: . THIS IS NOT INSURANCE.] hydrocodone 5 mg-patrizia taminophen 325 mg tablet RxNorm: 284431 1-2 Tablet(s) PO Q6 P RN 09/09/2015 10/08/2015 In active Micardis 80 mg tablet RxNorm: 712329 1 Tablet(s) PO daily TAKE ONE TABLET BY MOUTH DAILY 08/23/2015 12/12/2015 Inactive Klor-Con 10 mEq tabl et,extended release RxNorm: 641737 Tablet(s) TAKE ONE TA BLET BY MOUTH TWICE A DAY 08/23/2015 02/18/2016 Inactive Synthroid 50 mcg tablet RxNorm: 278055 TAKE ONE TABLET BY MOUTH DAILY 07/06/2015 12/22/2015 In active meloxicam 15 mg tablet RxNorm: 137354 TAKE ONE TABLET BY MOUTH ONE TIME A DAY 06/22/2015 11/10/2015 In active Singulair 10 mg tablet RxNorm: 484633 TAKE ONE TABLET BY MOUTH EVERY DAY 05/18/2015 07/16/2016 In active Micardis 80 mg tablet RxNorm: 594762 TAKE ONE TABLET BY MOUTH DAILY 02/22/2015 05/04/2015 In active gabapentin 600 mg ta blet RxNorm: 115392 1 Tablet(s) PO HS as needed 01/15/2015 01/09/2016 Inactive [SAVINGS FOR NON-COVERED DRUGS -- BIN:00 3585, PCN: ASPROD1, Group: [id number], ID# [id number], Questions: . THIS IS NOT INSURANCE.] diltiazem ER 180 mg capsule,extended release RxNorm: 988784 TAKE ONE CAPSULE BY M OUTH ONCE A DAY 01/07/2015 09/26/2015 Inactive meloxicam 15 mg tablet RxNorm: 847832 TAKE ONE TABLET BY MOUTH ONE TIME A DAY 11/09/2014 05/07/2015 In active gabapentin 600 mg ta blet RxNorm: 250359 1 Tablet(s) PO HS as needed 10/13/2014 01/14/2015 Inactive [SAVINGS FOR UNINSURED PATIENTS -- BIN:0 02163, PCN: ASPROD1, Group: [id number], ID# [id number], Process claim through [employer], for questions: . THIS IS NOT INSURANCE.] omeprazole 20 mg tab let,delayed release RxNorm: 643295 1 Tablet(s) PO daily 10/13/2014 11/11/2014 In active Synthroid 50 mcg tablet RxNorm: 276087 TAKE ONE TABLET BY MOUTH EVERY DAY 10/12/2014 01/09/2015 In active Synthroid 50 mcg tablet RxNorm: 699987 Tablet(s) TAKE ONE TABLET BY MOUTH EVERY DAY 10/12/2014 10/11/2014 Inactive [SAVINGS FOR UNINSURED PATIENTS -- BIN:0 93490, PCN: ASPROD1, Group: [id number], ID# [id number], Process claim through [employer], for questions: . THIS IS NOT INSURANCE.] Lasix 40 mg tablet RxNorm: 731049 Tablet(s) PO TAKE ONE TABLET BY MOUTH TW ICE A DAY FOR 3 DAYS, THEN RESUME ONE DAILY EXCEPT ON WEDNESDAYS AND FRIDAYS TAKE ONE TWICE DAILY 09/22/2014 No Stop Date Active [SAVINGS FOR UNINSURED PATIE NTS -- BIN:[id number], PCN: ASPROD1, Group: [id number], ID# [id number], Process claim through [employer], for questions: . THIS IS NOT INSURANCE.] Lasix 40 mg tablet RxNorm: 171320 TAKE ONE TABLET BY MOUTH EVERY DAY 09/22/2014 10/18/2015 In active Crestor 10 mg tablet RxNorm: 402485 1 Tablet(s) PO Sun08/28/2014 04/24/2015 Inactive [SAVINGS FOR UNINSURED PATIENTS -- BIN:0 77936, PCN: ASPROD1, Group: [id number], ID# [id number], Process claim through [employer], for questions: . THIS IS NOT INSURANCE.] Crestor 10 mg tablet RxNorm: 395666 1 Tablet(s) PO Sun08/28/2014 08/27/2014 Inactive [SAVINGS FOR UNINSURED PATIENTS -- BIN:0 35808, PCN: ASPROD1, Group: [id number], ID# [id number], Process claim through [employer], for questions: . THIS IS NOT INSURANCE.] Micardis 80 mg tablet RxNorm: 730664 TAKE ONE TABLET BY MOUTH EVERY DAY 08/24/2014 12/21/2014 In active Zithromax Z-Hebert 250 mg tablet RxNorm: 253815 Tablet(s) PO UD 08/14/2014 08/18/2014 Inactive 2 tabs day 1, 1 tabs days 2-5 Anusol-HC 25 mg supp ository RxNorm: 3528526 INSERT 1 RECTALLY DA GUSTAVO NEEDED 07/13/2014 10/10/2014 In active Klor-Con 10 mEq tabl et,extended release RxNorm: 839676 TAKE ONE TABLET BY [facility] TWICE A DAY 06/18/2014 12/14/2014 Inactive Lomotil 2.5 mg-0.025 mg tablet RxNorm: 0152860 1 Tablet(s) PO PRN a fter each loose stool max 8 per day 06/15/2014 10/12/2014 Inactive one after each loose bm juarez it 8 per day albuterol sulfate HF A 90 mcg/actuation aerosol inhaler RxNorm: 7416631 1 or2 Puff(s) INH Q4 PRN as needed 05/11/2014 05/10/2014 Inactive albuterol sulfate HF A 90 mcg/actuation aerosol inhaler RxNorm: 0469553 1 or2 Puff(s) INH Q4 PRN as needed 05/11/2014 01/03/2017 Inactive Premarin 0.625 mg/gr am vaginal cream RxNorm: 644150 1/2 Gram(s) VAG every other day 05/11/2014 12/06/2014 In active Premarin 0.625 mg/gr am vaginal cream RxNorm: 575209 1/2 Gram(s) VAG every other day 05/11/2014 05/10/2014 In active cefdinir 300 mg capsule RxNorm: 824493 1 Capsule(s) PO BID 05/07/2014 05/16/2014 Inactive Rocephin 500 mg solu tion for injection RxNorm: 140462 1 Milliliter(s) Inj 05/07/2014 05/07/2014 In active Singulair 10 mg tablet RxNorm: 063600 TAKE ONE TABLET BY MOUTH EVERY DAY 04/30/2014 10/12/2014 In active meloxicam 15 mg tablet RxNorm: 123395 1 Tablet(s) PO daily 04/16/2014 11/08/2014 Inactive Crestor 10 mg tablet RxNorm: 636539 1 Tablet(s) PO Sun TAKE ONE TAB LET BY MOUTH EVERY DAY 04/16/2014 08/27/2014 Inactive Synthroid 50 mcg tablet RxNorm: 917941 TAKE ONE TABLET BY MOUTH EVERY DAY 04/02/2014 09/28/2014 In active diltiazem ER 180 mg capsule,extended release RxNorm: 351934 1 Capsule(s) PO daily 01/05/2014 12/30/2014 In active Pennsaid 1.5 % topic al drops RxNorm: 935602 Drop(s) TOP APPLY 15 - 20 DROPS TOPICALLY FOUR TIMES A DAY 12/29/2013 01/17/2016 Inactive Rocephin 500 mg solu tion for injection RxNorm: 862292 Inj 12/2612/26/2013 Inactive Kenalog 40 mg/mL heaven pension for injection RxNorm: 8583615 Milliliter(s) Inj 12/26/2013 12/26/2013 In active Micardis 80 mg tablet RxNorm: 520613 Tablet(s) PO TAKE ONE TABLET BY MOUTH EV DEANNA12/15/2013 08/23/2014 Inactive nystatin 100,000 uni t/mL oral suspension RxNorm: 959516 4 Unit(s) PO QID swis h and swallow 11/12/2013 12/09/2013 Inactive Kenalog 40 mg/mL heaven pension for injection RxNorm: 1839419 Milliliter(s) Inj 11/12/2013 11/12/2013 In active Lasix 40 mg tablet RxNorm: 327470 Tablet(s) PO TAKE ONE TABLET BY MOUTH TW ICE A DAY FOR 3 DAYS, THEN RESUME ONE DAILY EXCEPT ON WEDNESDAYS AND FRIDAYS TAKE ONE TWICE DAILY 10/30/2013 09/21/2014 Inactive Lasix 40 mg tablet RxNorm: 707738 1 Tablet(s) PO daily 10/30/2013 10/29/2013 Inactive Rocephin 500 mg solu tion for injection RxNorm: 066021 1 Milliliter(s) Inj 10/09/2013 10/09/2013 In active metoprolol succinate ER 25 mg tablet,extended release 24 hr RxNorm: 715384 Tablet(s) PO TAKE ONE TABLET BY MOUTH EVERY DAY 10/02/2013 01/06/2014 Inactive metoprolol succinate ER 25 mg tablet,extended release 24 hr RxNorm: 480411 Tablet(s) PO TAKE ONE TABLET BY MOUTH EVERY DAY 08/04/2013 10/01/2013 Inactive Synthroid 50 mcg tablet RxNorm: 166091 Tablet(s) PO TAKE ONE TABLET BY MOUTH 07/14/2013 04/01/2014 Inactive gabapentin 600 mg ta blet RxNorm: 424241 1 Tablet(s) PO Q8 PRN 06/11/2013 06/11/2013 Inactive gabapentin 600 mg ta blet RxNorm: 774745 1 Tablet(s) PO Q8 PRN 06/11/2013 03/07/2014 Inactive Neurontin 600 mg tablet RxNorm: 003033 1 Tablet(s) PO Q8 PRN 06/10/2013 06/11/2013 Inactive Anusol-HC 25 mg supp ository RxNorm: 6496932 Suppository RTL INSE RT 1 RECTALLY DAILY NEEDED 04/24/2013 07/12/2014 Inactive metoprolol succinate ER 25 mg tablet,extended release 24 hr RxNorm: 833089 1 Tablet(s) PO daily 04/21/2013 08/03/2013 Inactive Premarin 0.625 mg/gr am Vaginal Cream RxNorm: 842420 1/2 Gram(s) VAG every other day 04/03/2013 10/29/2013 In active Klor-Con 10 mEq tabl et,extended release RxNorm: 916518 1 Tablet(s) PO daily 03/26/2013 03/20/2014 In active Klor-Con 10 mEq tabl et,extended release RxNorm: 260839 1 Tablet(s) PO BID 03/24/2013 03/23/2013 In active Klor-Con 10 mEq tabl et,extended release RxNorm: 897721 1 Tablet(s) PO BID 03/24/2013 03/25/2013 In active Klor-Con 10 mEq tabl et,extended release RxNorm: 003764 1 Tablet(s) PO BID 03/24/2013 03/23/2013 In active Augmentin 875 mg-125 mg tablet RxNorm: 587372 1 Tablet(s) PO BID 03/12/2013 03/18/2013 Inactive Augmentin 875 mg-125 mg tablet RxNorm: 370622 1 Tablet(s) PO BID 03/12/2013 03/11/2013 Inactive ciprofloxacin 500 mg tablet RxNorm: 821354 1 Tablet(s) PO BID 03/11/2013 03/17/2013 Inactive ciprofloxacin 500 mg tablet RxNorm: 786659 1 Tablet(s) PO BID 03/11/2013 03/10/2013 Inactive Crestor 10 mg tablet RxNorm: 852391 1 Tablet(s) PO daily 02/10/2013 02/09/2013 Inactive Crestor 10 mg tablet RxNorm: 034729 Tablet(s) PO TAKE ONE TABLET BY MOUTH EV DEANNA DAY 02/10/2013 04/15/2014 Inactive Singulair 10 mg tablet RxNorm: 930848 Tablet(s) PO TAKE ONE TABLET BY MOUTH EV DEANNA DAY 02/04/2013 04/29/2014 Inactive Kenalog 40 mg/mL Heaven p for Injection RxNorm: 9094078 1 Milliliter(s) Inj 11/21/2012 11/21/2012 In active Pennsaid 1.5 % topic al drops RxNorm: 803302 15-20 Drop(s) TOP QID 10/28/2012 11/21/2013 Inactive Micardis 80 mg tablet RxNorm: 791224 1 Tablet(s) PO daily 10/28/2012 10/22/2013 Inactive put this on file please, quantitiy incre ase Pennsaid 1.5 % Topic al Drops RxNorm: 284818 15-20 Drop(s) TOP QID 10/28/2012 10/27/2012 Inactive diltiazem ER 180 mg capsule,extended release RxNorm: 814534 1 Capsule(s) PO daily 10/14/2012 10/08/2013 In active Pyridium 200 mg tablet RxNorm: 0111452 1 Tablet(s) PO Q8 PRN 09/11/2012 10/12/2014 Inactive Flagyl 500 mg tablet RxNorm: 357432 1 Tablet(s) PO TID 09/04/2012 09/10/2012 Inactive Macrobid 100 mg capsule RxNorm: 833097 1 Capsule(s) PO BID 09/03/2012 09/02/2012 Inactive Macrobid 100 mg capsule RxNorm: 003026 1 Capsule(s) PO BID 09/03/2012 09/09/2012 Inactive sulfamethoxazole-tri methoprim 800 mg-160 mg tablet RxNorm: 906139 1 Tablet(s) PO BID 08/05/2012 08/14/2012 Inactive Lasix 40 mg tablet RxNorm: 620191 1 Tablet(s) PO BID pt is taking extra la six x 3 days, then every sunday and sunday take two lasix pills. 07/15/2012 07/09/2013 Inactive Synthroid 50 mcg tablet RxNorm: 129546 1 Tablet(s) PO daily 07/15/2012 07/09/2013 Inactive do not substitute the generic levothyrox ine for the synthroid brand name.....she needs brand name synthroid. Klor-Con 10 mEq tabl et,extended release RxNorm: 002385 1 Tablet(s) PO BID 07/15/2012 03/23/2013 In active Singulair 10 mg tablet RxNorm: 918938 1 Tablet(s) PO daily 06/12/2012 02/03/2013 Inactive Lexapro 10 mg tablet RxNorm: 801897 1/2 Tablet(s) PO daily 05/10/2012 06/03/2013 Inactive ProAir HFA 90 mcg/ac tuation Aerosol Inhaler RxNorm: 259751 2 INH Q6 PRN 04/23/2012 01/17/2016 In active Lexapro 10 mg tablet RxNorm: 423050 1/2 Tablet(s) PO daily 04/19/2012 05/09/2012 Inactive metoprolol succinate ER 50 mg tablet,extended release 24 hr RxNorm: 705696 1 Tablet(s) PO daily 04/09/2012 04/09/2012 Inactive Klor-Con 10 10 mEq t ablet,extended release RxNorm: 098969 1 Tablet(s) PO daily 04/01/2012 07/14/2012 In active metoprolol succinate ER 50 mg tablet,extended release 24 hr RxNorm: 259140 1/2 Tablet(s) PO BID 03/11/2012 04/08/2012 Inactive clonidine 0.1 mg Tab RxNorm: 496348 1 Tablet(s) PO BID 02/19/2012 03/12/2012 Inactive clonidine 0.1 mg Tab RxNorm: 470897 1 Tablet(s) PO BID 02/19/2012 02/18/2012 Inactive Micardis 80 mg Tab RxNorm: 974311 1 Tablet(s) PO daily 02/14/2012 02/13/2012 Inactive Micardis 80 mg tablet RxNorm: 345251 1 Tablet(s) PO daily 02/14/2012 10/27/2012 Inactive Synthroid 50 mcg tablet RxNorm: 642961 1 Tablet(s) PO daily 02/12/2012 07/14/2012 Inactive Tekturna 300 mg Tab RxNorm: 5028429 1 Tablet(s) PO daily 02/12/2012 03/12/2012 Inactive Lasix 40 mg Tab RxNorm: 960786 1 Tablet(s) PO daily 12/18/2011 12/17/2011 Inactive Lasix 40 mg tablet RxNorm: 123081 1 Tablet(s) PO daily 12/18/2011 07/14/2012 Inactive Anusol-HC 25 mg Supp ository RxNorm: 9992814 1 Suppository RTL QD AY PRN 12/04/2011 04/19/2012 In active lactobacillus acidop hilus Cap RxNorm: 1 Capsule(s) PO BID 11/21/2011 11/20/2011 Inactive lactobacillus acidop hilus Cap RxNorm: 1 Capsule(s) PO BID 11/21/2011 11/20/2011 Inactive Cipro 500 mg Tab RxNorm: 156267 1 Tablet(s) PO BID 11/21/2011 03/12/2012 Inactive lactobacillus acidop hilus Cap RxNorm: 1 Capsule(s) PO BID 11/21/2011 11/27/2011 Inactive lactobacillus acidop hilus Cap RxNorm: 1 Capsule(s) PO BID 11/21/2011 11/20/2011 Inactive Cipro 500 mg Tab RxNorm: 694992 1 Tablet(s) PO BID 11/21/2011 11/20/2011 Inactive Lexapro 10 mg Tab RxNorm: 097806 1 Tablet(s) PO daily 11/13/2011 11/12/2011 Inactive Lexapro 10 mg tablet RxNorm: 100110 1 Tablet(s) PO daily 11/13/2011 04/18/2012 Inactive amlodipine 10 mg Tab RxNorm: 527264 1 Tablet(s) PO daily 10/09/2011 12/03/2011 Inactive amlodipine 5 mg Tab RxNorm: 296438 1 Tablet(s) PO daily 09/20/2011 12/04/2011 Inactive Rocephin 500 mg Solu tion for Injection RxNorm: 749754 Inj 08/3009/20/2011 Inactive metoprolol succinate ER 25 mg 24 hr Tab RxNorm: 070249 1 Tablet(s) PO QHS 08/30/2011 09/20/2011 In active Ambien 10 mg Tab RxNorm: 220762 1 Tablet(s) PO HS PRN 08/30/2011 04/19/2012 Inactive Augmentin 875 mg-125 mg Tab RxNorm: 931905 1 Tablet(s) PO BID 08/25/2011 09/20/2011 Inactive Augmentin 875 mg-125 mg Tab RxNorm: 414772 1 Tablet(s) PO BID 08/25/2011 08/24/2011 Inactive Rocephin 500 mg Solu tion for Injection RxNorm: 758614 Inj 08/2308/23/2011 Inactive Levaquin 500 mg Tab RxNorm: 914934 1 Tablet(s) PO daily 08/23/2011 08/30/2011 Inactive chlordiazepoxide-cli dinium 5 mg-2.5 mg Cap RxNorm: 024092 1 Capsule(s) PO BID 07/10/2011 04/19/2012 In active q 12 hours prn metoprolol succinate ER 100 mg 24 hr Tab RxNorm: 115293 1 Tablet(s) PO daily 05/29/2011 03/12/2012 In active Synthroid 50 mcg Tab RxNorm: 462705 1 Tablet(s) PO daily 05/15/2011 08/12/2011 Inactive Ambien CR 12.5 mg Tab RxNorm: 397242 1 Tablet(s) PO HS PRN 05/09/2011 08/30/2011 Inactive Ambien 10 mg Tab RxNorm: 565088 1 Tablet(s) PO QHS 05/09/2011 06/07/2011 Inactive Nexium 40 mg Cap RxNorm: 761182 1 Capsule(s) PO daily 05/04/2011 03/12/2012 Inactive the patient had tried pepcid, otc priolosec, RX omperazole, failed them all Bactrim DS 800 mg-16 0 mg Tab RxNorm: 035624 1 Tablet(s) PO BID 04/19/2011 08/30/2011 Inactive triamcinolone aceton margie 40 mg/mL Susp for Injection RxNorm: 2897867 1 Milliliter(s) Inj UD 04/19/2011 04/19/2011 Inactive aspirin 81 mg Tab, D elayed Release RxNorm: 358807 1 Tablet(s) PO daily No Start Date Active Centrum Silver Ultra Women's oral RxNorm: [address] Date Active Probiotic & Acidophi jerilyn oral RxNorm: oral No Start D ate Active Fish Oil 1,000 mg Cap RxNorm: 1 Capsule(s) PO daily No Start Date Active Tylenol Extra Streng th 500 mg tablet RxNorm: 162957 1 Tablet(s) PO BID as needed for pain No Start Date Active 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 Device RxNorm: Miscellaneous 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, 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 No Start Date Active Cymbalta 30 mg Cap RxNorm: 052836 1 Capsule(s) PO daily No Start Date 03/12/2012 Inactive Nexium 40 mg Cap RxNorm: 297517 Capsule(s) PO No Start Date 05/03/2011 Inactive Benadryl 25 mg capsule RxNorm: 7323024 1 Capsule(s) PO QHS No Start Date 01/03/2017 Inactive Klor-Con 10 10 mEq t ablet,extended release RxNorm: 852581 1 Tablet(s) PO daily No Start Date 03/31/2012 Inactive Metamucil Oral RxNorm: Oral No Start Date 10/12/2014 Inactive amlodipine 10 mg Tab RxNorm: 883177 1 Tablet(s) PO daily No Start Date 10/08/2011 Inactive Norvasc 5 mg tablet RxNorm: 518814 1 Tablet(s) PO daily No Start Date 10/12/2014 Inactive Lasix 40 mg Tab RxNorm: 530420 1 Tablet(s) PO daily No Start Date 12/17/2011 Inactive diltiazem ER (XR/XT) 240 mg capsule,extended release,controlled RxNorm: 592557 1 Capsule(s) PO daily No Start Date 04/22/2012 Inactive Synthroid 50 mcg Tab RxNorm: 962394 1 Tablet(s) PO daily No Start Date 05/14/2011 Inactive Flagyl 500 mg tablet RxNorm: 329154 1 Tablet(s) PO No Start Date 09/03/2012 Inactive one after each loose bm limit 8 per day Boniva 150 mg Tab RxNorm: 952079 1 Tablet(s) PO UD No Start Date 08/30/2011 Inactive monthly Singulair 10 mg tablet RxNorm: 499299 1 Tablet(s) PO daily No Start Date 06/11/2012 Inactive folic acid Oral RxNorm: Oral No Start Date 03/12/2012 Inactive potassium chloride E R 10 mEq tablet,extended release RxNorm: 440708 1 Tablet(s) PO daily No Start Date 01/03/2017 Inactive Librium 10 mg Cap RxNorm: 657754 Capsule(s) PO UD No Start Date 03/12/2012 Inactive q 12 hours prn Crestor 10 mg tablet RxNorm: 349360 1 Tablet(s) PO daily No Start Date 02/09/2013 Inactive multivitamin Cap RxNorm: 1 Capsule(s) PO daily No Start Date 01/17/2016 Inactive metoprolol succinate ER 100 mg 24 hr Tab RxNorm: 164787 1 Tablet(s) PO daily No Start Date 05/28/2011 Inactive Zithromax Z-Hebert 250 mg tablet RxNorm: 589317 Tablet(s) PO UD No Start Date 12/22/2015 Inactive diltiazem ER 180 mg capsule,extended release RxNorm: 486432 1 Capsule(s) PO daily No Start Date 10/13/2012 Inactive Tekturna 300 mg Tab RxNorm: 7834053 1 Tablet(s) PO daily samples No Start Date 02/11/2012 Inactive ProAir HFA 90 mcg/ac tuation Aerosol Inhaler RxNorm: 268009 2 INH Q6 PRN No Start Date 04/22/2012 Inactive chlordiazepoxide-cli dinium 5 mg-2.5 mg Cap RxNorm: 796805 1 Capsule(s) PO PRN No Start Date 07/09/2011 Inactive q 12 hours prn Butrans 5 mcg/hour T ransderm Patch RxNorm: 287093 1 Patch TD weekly No Start Date 05/26/2012 Inactive Lactobacillus acidop hilus tablet RxNorm: 4 Tablet(s) PO daily No Start Date 01/03/2017 Inactive Librax (with clidini um) 5 mg-2.5 mg capsule RxNorm: 364005 1 Capsule(s) PO BID No Start Date 04/18/2012 Inactive Nexium 40 mg capsule ,delayed release RxNorm: 221401 Capsule(s) PO PRN No Start Date 10/12/2014 Inactive Premarin 0.625 mg/gr am Vaginal Cream RxNorm: 121530 Gram(s) VAG No Start Date 03/12/2012 Inactive three times a week, small amt to vaginal tissuesample given metoprolol succinate ER 50 mg tablet,extended release 24 hr RxNorm: 469014 1 Tablet(s) PO daily No Start Date 03/10/2012 Inactive Zithromax Z-Hebert 250 mg tablet RxNorm: 521557 Tablet(s) PO UD No Start Date 08/13/2014 Inactive albuterol sulfate HF A 90 mcg/actuation aerosol inhaler RxNorm: 2476393 1 or2 Puff(s) INH Q4 PRN No Start Date 05/10/2014 Inactive Xanax 0.25 mg Tab RxNorm: 360901 1/2-1 Tablet(s) PO Q8 PRN No Start Date 03/12/2012 Inactive metoprolol succinate ER 25 mg tablet,extended release 24 hr RxNorm: 612290 1 Tablet(s) PO daily No Start Date 04/20/2013 Inactive Zithromax Z-Hebert 250 mg tablet RxNorm: 775025 1 Tablet(s) PO UD No Start Date 08/10/2016 Inactive Z PACK DIRECTED calcium carbonate 60 0 mg (1,500 mg) Tab RxNorm: 528510 1 Tablet(s) PO BID No Start Date 01/03/2017 Inactive albuterol sulfate HF A 90 mcg/Actuation Aerosol Inhaler RxNorm: 087173 1-2 Puff(s) INH Q4 PRN No Start Date 03/11/2012 Inactive Vitamin D3 2,000 uni t capsule RxNorm: 071132 1 Capsule(s) PO daily No Start Date 10/12/2014 Inactive Colace 100 mg Cap RxNorm: 2568657 1 Capsule(s) PO BID No Start Date 01/17/2016 Inactive Neurontin 600 mg tablet RxNorm: 797031 1 Tablet(s) PO Q8 PRN No Start Date 06/09/2013 Inactive Lomotil 2.5 mg-0.025 mg tablet RxNorm: 8301611 1 Tablet(s) PO No Start Date 06/14/2014 Inactive one after each loose bm limit 8 per day Micardis 80 mg Tab RxNorm: 331461 1 Tablet(s) PO daily No Start Date 12/03/2011 Inactive Pyridium 200 mg tablet RxNorm: 2395589 1 Tablet(s) PO Q8 PRN No Start Date 09/10/2012 Inactive Medication Administered Medication Codes Instruc tions Start Date Status Kenalog 40 mg/mL suspension for injection RxNorm: 8630421 1Milliliter 01/04/2017 N o longer Active Kenalog 40 mg/mL suspension for injection RxNorm: 1798837 Milliliter 08/23/2016 No longer Active Rocephin 500 mg solution for injection RxNorm: 838179 1Milliliter 05/07/2014 N o longer Active Kenalog 40 mg/mL suspension for injection RxNorm: 6555619 Milliliter 12/26/2013 No longer Active Rocephin 500 mg solution for injection RxNorm: 494261 12/26/2013 No longer A ctive Kenalog 40 mg/mL suspension for injection RxNorm: 7828514 Milliliter 11/12/2013 No longer Active Rocephin 500 mg solution for injection RxNorm: 171236 1Milliliter 10/09/2013 N o longer Active Kenalog 40 mg/mL Susp for Injection RxNorm: 2575665 1Milliliter 11/21/2012 N o longer Active Rocephin 500 mg Solution for Injection RxNorm: 667896 08/23/2011 No longer A ctive triamcinolone acetonide 40 mg/mL Susp for Injection RxNorm: 5042963 1MilliliterUD 04/19/2011 No longer Active Immunizations Vaccine Codes Date Status Influenza CVX: 141 06/16 completed Pneumococcal CVX: 133 completed PPD Unknown 08/07/2014 completed Influenza CVX: 141 05/20 completed Influenza CVX: 141 06/11 completed zostavax CVX: 121 2012 completed Influenza CVX: 141 05/03 completed Influenza Unknown 2009 completed Assessments Condition Codes Effectiv e Dates Gastro-esophageal reflux [...] 11/12/2013 Laboratory exam ordered as part of [facility] general medical examination ICD-9: V72.62 11/12/2013 [...] Visit Reason For Visit Effective Dates Notes urinary [...] 28.8 pg 03/09/2016 Cbc With Differential Ord2 [place]% 8.5 % 03/09/2016 Cbc With Differential Ord2 [...] 2.38 K/ul 03/09/2016 Cbc With Differential Ord2 [place] ABS# 0.8 K/ul 03/09/2016 Cbc With Differential Ord2 Eos ABS# 0.2 K/ul 03/09/2016 Cbc With Differential Ord2 Baso ABS# 0.1 K/ul 03/09/2016 Comp Metabolic Gwa053 NA 138 mEq/L 03/09/2016 Comp Metabolic Dwn816 K 4.5 mEq/L 03/09/2016 Comp Metabolic Puk305 CL 100 mEq/L 03/09/2016 Comp Metabolic Kgq328 CO2 33.0 mEq/L 03/09/2016 Comp Metabolic Elk079 AN ION GAP 10 03/09/2016 Comp Metabolic Ivj390 GL UCOSE 94 mg/dL 03/09/2016 Comp Metabolic Dps273 Cr eat 0.6 mg/dL 03/09/2016 Comp Metabolic Bcl660 eG FR 106 ml/min/1.73m2 02/24 Comp Metabolic Pgg954 BUN 10 mg/dL 03/09/2016 Comp Metabolic Wbq269 B/ C Ratio 17.2 Ratio 03/09/2016 Comp Metabolic Wbh512 CA LCIUM 9.2 mg/dL 03/09/2016 Comp Metabolic Rph380 AL K PHOS 64 U/L 03/09/2016 Comp Metabolic Jdj055 T(SGOT) 20 U/L 03/09/2016 Comp Metabolic Zds228 AL T(SGPT) 11 U/L 03/09/2016 Comp Metabolic Yua441 BI LI T 0.9 mg/dL 03/09/2016 Comp Metabolic Jmp737 AL BUMIN 4.0 g/dL 03/09/2016 Comp Metabolic Ybo292 TP RO 6.1 g/dL 03/09/2016 Comp Metabolic Yct973 GL OB 2.1 g/dL 03/09/2016 Comp Metabolic Lkg946 A/ G Ratio 1.9 Ratio 03/09/2016 Comp Metabolic Hpe416 Os mo 274 mOsmo 03/09/2016 Free T4 Amm664 FREE T4 0.90 ng/dL 03/09/2016 Lipid Ord30 [...] hTSH II 3.25 uIU/mL 09/07/2015 Free T4 Gow156 FREE T4 0.79 ng/dL 09/07/2015 Comp Metabolic Ufq343 NA 137 mEq/L 09/07/2015 Comp Metabolic Atb680 K 4.0 mEq/L 09/07/2015 Comp Metabolic Qzu788 CL 98 mEq/L 09/07/2015 Comp Metabolic Yes930 CO2 30.0 mEq/L 09/07/2015 Comp Metabolic Mrw835 AN ION GAP 13 09/07/2015 Comp Metabolic Kpv088 GL UCOSE 101 mg/dL 09/07/2015 Comp Metabolic Vrw752 Cr eat 0.6 mg/dL 09/07/2015 Comp Metabolic Ceb154 eG FR 111 ml/min/1.73m2 08/27 Comp Metabolic Nzl971 BUN 16 mg/dL 09/07/2015 Comp Metabolic Tap254 B/ C Ratio 28.6 Ratio 09/07/2015 Comp Metabolic Itw473 CA LCIUM 9.4 mg/dL 09/07/2015 Comp Metabolic Ehy798 AL K PHOS 68 U/L 09/07/2015 Comp Metabolic Ttr966 T(SGOT) 16 U/L 09/07/2015 Comp Metabolic Owj100 AL T(SGPT) 12 U/L 09/07/2015 Comp Metabolic Cxr963 BI LI T 0.9 mg/dL 09/07/2015 Comp Metabolic Jnb327 AL BUMIN 4.1 g/dL 09/07/2015 Comp Metabolic Iqo343 TP RO 6.5 g/dL 09/07/2015 Comp Metabolic Hfe348 GL OB 2.4 g/dL 09/07/2015 Comp Metabolic Wkb515 A/ G Ratio 1.7 Ratio 09/07/2015 Comp Metabolic Wrb490 Os mo 275 mOsmo 09/07/2015 Cbc With [...] Differential Ord2 RDW 14.4 % 09/07/2015 TSH 7161329 TSH 0.920 uIU/ML 08/28/2014 CBC 5004969 WBC 12.5 10e9/L 08/28/2014 CBC 6434067 RBC 3.44 10e12/L 08/28/2014 CBC 2027878 HGB 10.3 g/dL 08/28/2014 CBC 9969311 HCT DET 33.9 % 08/28/2014 CBC 1509925 MCV 98.5 fL 08/28/2014 CBC 0245029 MCH 29.9 pg 08/28/2014 CBC 5433668 MCHC 30.4 g/dL 08/28/2014 CBC 6181523 PLT 412 10e9/L 08/28/2014 CBC 3812702 MPV 10.2 fL 08/28/2014 CBC 7789961 NNEKA % 68.5 % 08/28/2014 CBC 0593032 LY % 20.8 % 08/28/2014 CBC 7003974 MON % 9.9 % 08/28/2014 CBC 4029778 EOS % 0.6 % 08/28/2014 CBC 6853220 BASO % 0.2 % 08/28/2014 CBC 0356782 RDW 15.8 % 08/28/2014 CBC 0974527 ABS NNEKA 8.56 10e9/L 08/28/2014 CBC 4370271 ABS LYMPH 2.60 10e9/L 08/28/2014 CBC 8986817 ABS MONO 1.24 10e9/L 08/28/2014 CBC 6783418 ABS EOS 0.08 10e9/L 08/28/2014 CBC 6621830 ABS BASO 0.03 10e9/L 08/28/2014 CBC 7979685 RDW-SD 55.4 fL 08/28/2014 GFR CALC 9668767 GFR AA >60 ML/MIN 08/28/2014 GFR CALC 3123141 GFR NON -AA >60 ML/MIN 08/28/2014 LIPID GRP 3236947 HDL TE ST 69 MG/DL 08/28/2014 LIPID GRP TRIG 158 MG/DL 08/28/2014 LIPID GRP 9847215 TEST L DL 96 MG/DL 08/28/2014 LIPID GRP CHOL 197 MG/DL 08/28/2014 LIPID GRP RCHOL/ HDL 2.86 RATIO 08/28/2014 LIPID GRP NON-HD L CH 128 MG/DL 08/28/2014 CHEM 14 9027663 AST 14 U/L 08/28/2014 CHEM 14 3184099 ALT 13 IU/L 08/28/2014 CHEM 14 8993909 BUN 15 MG/DL 08/28/2014 CHEM 14 7449442 ALBUMIN 4.2 GM/DL 08/28/2014 CHEM 14 0451424 CHLORIDE 98 MMOL/L 08/28/2014 CHEM 14 2387940 BILI TOT 1.2 MG/DL 08/28/2014 CHEM 14 9437552 ALK PHOS 68 U/L 08/28/2014 CHEM 14 2962749 SODIUM 137 MMOL/L 08/28/2014 CHEM 14 0840982 CREATINI NE 0.68 MG/DL 08/28/2014 CHEM 14 7412043 CALCIUM 9.1 MG/DL 08/28/2014 CHEM 14 3838057 POTASSIUM 3.7 MMOL/L 08/28/2014 CHEM 14 1007843 PROT TOT 6.2 GM/DL 08/28/2014 CHEM 14 1305941 GLUCOSE 91 MG/DL 08/28/2014 CHEM 14 2191617 BICARB 31 MMOL/L 08/28/2014 CHEM 14 5903659 ANION GAP 8 MEQ/L 08/28/2014 FREE T4 8934336 FREE T4 1.44 NG/DL 08/28/2014 LIPID GRP HDL TE ST 73 MG/DL 04/16/2014 LIPID GRP TRIG 131 MG/DL 04/16/2014 LIPID GRP TEST L DL 99 MG/DL 04/16/2014 LIPID GRP CHOL 198 MG/DL 04/16/2014 LIPID GRP 1149049 RCHOL/ HDL 2.71 RATIO 04/16/2014 LIPID GRP NON-HD L CH 125 MG/DL 04/16/2014 CHEM 14 9094380 AST 17 U/L 04/14/2014 CHEM 14 9133297 ALT 17 IU/L 04/14/2014 CHEM 14 5321468 BUN 15 MG/DL 04/14/2014 CHEM 14 9567681 ALBUMIN 4.3 GM/DL 04/14/2014 CHEM 14 1795497 CHLORIDE 96 MMOL/L 04/14/2014 CHEM 14 2433224 BILI TOT 0.9 MG/DL 04/14/2014 CHEM 14 9386583 ALK PHOS 65 U/L 04/14/2014 CHEM 14 8216907 SODIUM 135 MMOL/L 04/14/2014 CHEM 14 1044713 CREATINI NE 0.69 MG/DL 04/14/2014 CHEM 14 4032670 CALCIUM 9.5 MG/DL 04/14/2014 CHEM 14 1592077 POTASSIUM 4.1 MMOL/L 04/14/2014 CHEM 14 5668238 PROT TOT 6.6 GM/DL 04/14/2014 CHEM 14 2540296 GLUCOSE 104 MG/DL 04/14/2014 CHEM 14 2134403 BICARB 34 MMOL/L 04/14/2014 CHEM 14 1769194 ANION GAP 5 MEQ/L 04/14/2014 A1C HPLC 1940049 A1C HPLC 51625-1 5.0 % 04/14/2014 TSH 2895437 TSH 2.140 uIU/ML 04/14/2014 FREE T4 6639386 FREE T4 1.56 NG/DL 04/14/2014 GFR CALC 8912587 GFR AA >60 ML/MIN 04/14/2014 GFR CALC 5035272 GFR NON -AA >60 ML/MIN 04/14/2014 CBC 1837279 WBC 12.8 10e9/L 04/14/2014 CBC 6824665 RBC 4.44 10e12/L 04/14/2014 CBC 5221716 HGB 13.2 g/dL 04/14/2014 CBC 0225580 HCT DET 41.4 % 04/14/2014 CBC 3518220 MCV 93.2 fL 04/14/2014 CBC 7657210 MCH 29.7 pg 04/14/2014 CBC 1647688 MCHC 31.9 g/dL 04/14/2014 CBC 4346397 PLT 383 10e9/L 04/14/2014 CBC 6465283 MPV 10.1 fL 04/14/2014 CBC 9028279 NNEKA % 65.5 % 04/14/2014 CBC 1840393 LY % 23.0 % 04/14/2014 CBC 4201007 MON % 9.9 % 04/14/2014 CBC 3839688 EOS % 1.3 % 04/14/2014 CBC 5190617 BASO % 0.3 % 04/14/2014 CBC 0018839 RDW 13.7 % 04/14/2014 CBC 9932450 ABS NNEKA 8.38 10e9/L 04/14/2014 CBC 2171001 ABS LYMPH 2.94 10e9/L 04/14/2014 CBC 4089310 ABS MONO 1.27 10e9/L 04/14/2014 CBC 9089583 ABS EOS 0.17 10e9/L 04/14/2014 CBC 8028280 ABS BASO 0.04 10e9/L 04/14/2014 CBC 0802861 RDW-SD 45.9 fL 04/14/2014 A1C HPLC 3063157 A1C HPLC 44567-6 4.9 % 11/13/2013 CHEM 14 3894851 AST 15 U/L 11/12/2013 CHEM 14 6468495 ALT 14 IU/L 11/12/2013 CHEM 14 2278411 BUN 14 MG/DL 11/12/2013 CHEM 14 9623902 ALBUMIN 4.3 GM/DL 11/12/2013 CHEM 14 9972095 CHLORIDE 101 MMOL/L 11/12/2013 CHEM 14 1179967 BILI TOT 0.9 MG/DL 11/12/2013 CHEM 14 6388945 ALK PHOS 67 U/L 11/12/2013 CHEM 14 2561866 SODIUM 139 MMOL/L 11/12/2013 CHEM 14 6411033 CREATINI NE 0.67 MG/DL 11/12/2013 CHEM 14 5707984 CALCIUM 9.5 MG/DL 11/12/2013 CHEM 14 4705467 POTASSIUM 4.1 MMOL/L 11/12/2013 CHEM 14 0691790 PROT TOT 6.5 GM/DL 11/12/2013 CHEM 14 6326634 GLUCOSE 102 MG/DL 11/12/2013 CHEM 14 2816791 BICARB 30 MMOL/L 11/12/2013 CHEM 14 0604984 ANION GAP 8 MEQ/L 11/12/2013 GFR CALC 4297116 GFR AA >60 ML/MIN 11/12/2013 GFR CALC 4935242 GFR NON -AA >60 ML/MIN 11/12/2013 TSH 2353865 TSH 2.445 uIU/ML 11/12/2013 FREE T4 0950034 FREE T4 1.09 NG/DL 11/12/2013 CBC 7453290 WBC 7.6 10e9/L 11/12/2013 CBC 9919503 RBC 4.42 10e12/L 11/12/2013 CBC 9310178 HGB 13.1 g/dL 11/12/2013 CBC 5302387 HCT DET 41.2 % 11/12/2013 CBC 7100068 MCV 93.2 fL 11/12/2013 CBC 0236218 MCH 29.6 pg 11/12/2013 CBC 3989598 MCHC 31.8 g/dL 11/12/2013 CBC 4904518 PLT 314 10e9/L 11/12/2013 CBC 4272295 MPV 10.4 fL 11/12/2013 CBC 1413972 NNEKA % 59.8 % 11/12/2013 CBC 6616130 LY % 28.1 % 11/12/2013 CBC 8057534 MON % 9.5 % 11/12/2013 CBC 9986529 EOS % 1.8 % 11/12/2013 CBC 7308174 BASO % 0.8 % 11/12/2013 CBC 1317616 RDW 13.8 % 11/12/2013 CBC 8919462 ABS NNEKA 4.54 10e9/L 11/12/2013 CBC 4252123 ABS LYMPH 2.14 10e9/L 11/12/2013 CBC 8975109 ABS MONO 0.72 10e9/L 11/12/2013 CBC 4644330 ABS EOS 0.14 10e9/L 11/12/2013 CBC 6266206 ABS BASO 0.06 10e9/L 11/12/2013 CBC 1893269 RDW-SD 46.0 fL 11/12/2013 LIPID GRP HDL TE ST 66 MG/DL 11/12/2013 LIPID GRP TRIG 130 MG/DL 11/12/2013 LIPID GRP 6827605 TEST L DL 108 MG/DL 11/12/2013 LIPID GRP 9301095 CHOL 200 MG/DL 11/12/2013 LIPID GRP RCHOL/ HDL 3.03 RATIO 11/12/2013 HS ENE ZOS 5431846 HS VA R ZOS IMMUNE 04/04/2013 A1C 7124847 A1C HPLC 93781-1 5.2 % 04/03/2013 GFR CALC 8248804 GFR AA >60 ML/MIN 03/31/2013 GFR CALC 1424580 GFR NON -AA >60 ML/MIN 03/31/2013 TSH 4567227 TSH 2.689 uIU/ML 03/31/2013 LIPID GRP 8269442 HDL TE ST 63 MG/DL 03/31/2013 LIPID GRP 9800150 TRIG 157 MG/DL 03/31/2013 LIPID GRP 9862790 TEST L DL 98 MG/DL 03/31/2013 LIPID GRP 8566231 CHOL 192 MG/DL 03/31/2013 LIPID GRP 2440125 RCHOL/ HDL 3.05 RATIO 03/31/2013 FREE T4 6944659 FREE T4 1.19 NG/DL 03/31/2013 CHEM 14 6221823 AST 16 U/L 03/31/2013 CHEM 14 1694667 ALT 12 IU/L 03/31/2013 CHEM 14 9023363 BUN 17 MG/DL 03/31/2013 CHEM 14 9591850 ALBUMIN 4.5 GM/DL 03/31/2013 CHEM 14 4650560 CHLORIDE 98 MMOL/L 03/31/2013 CHEM 14 7401205 BILI TOT 0.7 MG/DL 03/31/2013 CHEM 14 5539712 ALK PHOS 53 U/L 03/31/2013 CHEM 14 6117820 SODIUM 137 MMOL/L 03/31/2013 CHEM 14 9528241 CREATINI NE 0.66 MG/DL 03/31/2013 CHEM 14 4935244 CALCIUM 9.6 MG/DL 03/31/2013 CHEM 14 7027398 POTASSIUM 4.2 MMOL/L 03/31/2013 CHEM 14 6272436 PROT TOT 6.7 GM/DL 03/31/2013 CHEM 14 6167457 GLUCOSE 101 MG/DL 03/31/2013 CHEM 14 6717065 BICARB 33 MMOL/L 03/31/2013 CHEM 14 0396398 ANION GAP 6 MEQ/L 03/31/2013 CBC 1947744 WBC 7.5 10e9/L 03/31/2013 CBC 9655450 RBC 4.39 10e12/L 03/31/2013 CBC 3159147 HGB 13.0 g/dL 03/31/2013 CBC 4853610 HCT DET 40.2 % 03/31/2013 CBC 4378581 MCV 91.6 fL 03/31/2013 CBC 2827466 MCH 29.6 pg 03/31/2013 CBC 9376582 MCHC 32.3 g/dL 03/31/2013 CBC 4062640 PLT 305 10e9/L 03/31/2013 CBC 3216359 MPV 10.4 fL 03/31/2013 CBC 6024411 NNEKA % 56.8 % 03/31/2013 CBC 4121811 LY % 30.3 % 03/31/2013 CBC 9484519 MON % 9.8 % 03/31/2013 CBC 6025713 EOS % 2.3 % 03/31/2013 CBC 6793536 BASO % 0.8 % 03/31/2013 CBC 5332151 RDW 13.2 % 03/31/2013 CBC 0923860 ABS NNEKA 4.26 10e9/L 03/31/2013 CBC 7991410 ABS LYMPH 2.27 10e9/L 03/31/2013 CBC 2677901 ABS MONO 0.74 10e9/L 03/31/2013 CBC 3659315 ABS EOS 0.17 10e9/L 03/31/2013 CBC 2599661 ABS BASO 0.06 10e9/L 03/31/2013 CBC 9303132 RDW-SD 43.2 fL 03/31/2013 LIPID GRP HDL TE ST 49 MG/DL 09/11/2012 LIPID GRP TRIG 134 MG/DL 09/11/2012 LIPID GRP TEST L DL 81 MG/DL 09/11/2012 LIPID GRP CHOL 157 MG/DL 09/11/2012 LIPID GRP RCHOL/ HDL 3.20 RATIO 09/11/2012 TSH 5563116 TSH 2.118 uIU/ML 09/11/2012 CBC 7187535 WBC 7.5 10e9/L 09/11/2012 CBC 8532914 RBC 3.99 10e12/L 09/11/2012 CBC 6289141 HGB 11.7 g/dL 09/11/2012 CBC 7033533 HCT DET 37.7 % 09/11/2012 CBC 4219125 MCV 94.5 fL 09/11/2012 CBC 6912354 MCH 29.3 pg 09/11/2012 CBC 6547727 MCHC 31.0 g/dL 09/11/2012 CBC 3602893 PLT 384 10e9/L 09/11/2012 CBC 2046696 MPV 11.0 fL 09/11/2012 CBC 4490498 NNEKA % 51.7 % 09/11/2012 CBC 8988958 LY % 35.2 % 09/11/2012 CBC 6964491 MON % 10.4 % 09/11/2012 CBC 2242846 EOS % 2.3 % 09/11/2012 CBC 8077430 BASO % 0.4 % 09/11/2012 CBC 4314943 RDW 14.2 % 09/11/2012 CBC 9357676 ABS NNEKA 3.88 10e9/L 09/11/2012 CBC 4227779 ABS LYMPH 2.64 10e9/L 09/11/2012 CBC 5361973 ABS MONO 0.78 10e9/L 09/11/2012 CBC 4128961 ABS EOS 0.17 10e9/L 09/11/2012 CBC 4571660 ABS BASO 0.03 10e9/L 09/11/2012 CBC 2665227 RDW-SD 47.1 fL 09/11/2012 CHEM 14 5466936 AST 16 U/L 09/11/2012 CHEM 14 6154770 ALT 15 IU/L 09/11/2012 CHEM 14 3869644 BUN 11 MG/DL 09/11/2012 CHEM 14 1638747 ALBUMIN 4.2 GM/DL 09/11/2012 CHEM 14 2788559 CHLORIDE 101 MMOL/L 09/11/2012 CHEM 14 5122881 BILI TOT 0.8 MG/DL 09/11/2012 CHEM 14 5691840 ALK PHOS 57 U/L 09/11/2012 CHEM 14 1395574 SODIUM 141 MMOL/L 09/11/2012 CHEM 14 9863447 CREATINI NE 0.62 MG/DL 09/11/2012 CHEM 14 4129984 CALCIUM 9.5 MG/DL 09/11/2012 CHEM 14 5300618 POTASSIUM 4.7 MMOL/L 09/11/2012 CHEM 14 9799825 PROT TOT 6.6 GM/DL 09/11/2012 CHEM 14 0173771 GLUCOSE 90 MG/DL 09/11/2012 CHEM 14 5360452 BICARB 32 MMOL/L 09/11/2012 CHEM 14 8801308 ANION GAP 8 MEQ/L 09/11/2012 A1C HPLC 8025831 A1C HPLC 54180-8 4.5 % 09/11/2012 GFR CALC 5875838 GFR AA >60 ML/MIN 09/11/2012 GFR CALC 4989851 GFR NON -AA >60 ML/MIN 09/11/2012 FREE T4 7945249 FREE T4 1.30 NG/DL 09/11/2012 BMP 0806034 GLUCOSE 93 MG/DL 04/16/2012 BMP 9467464 CREATININE 0.64 MG/DL 04/16/2012 BMP BUN 12 MG/DL 04/16/2012 BMP 1524529 SODIUM 139 MMOL/L 04/16/2012 BMP 1402119 POTASSIUM 4.1 MMOL/L 04/16/2012 BMP 6681065 CHLORIDE 99 MMOL/L 04/16/2012 BMP BICARB 32 MMOL/L 04/16/2012 BMP ANION GAP 8 MEQ/L 04/16/2012 BMP 3375207 CALCIUM 9.8 MG/DL 04/16/2012 CBC 6332624 WBC 8.5 10e9/L 04/16/2012 CBC 0801046 RBC 3.98 10e12/L 04/16/2012 CBC 8791290 HGB 11.5 g/dL 04/16/2012 CBC 0378255 HCT DET 36.7 % 04/16/2012 CBC 0260141 MCV 92.2 fL 04/16/2012 CBC 0072266 MCH 28.9 pg 04/16/2012 CBC 7121142 MCHC 31.3 g/dL 04/16/2012 CBC 8150658 PLT 321 10e9/L 04/16/2012 CBC 2723461 MPV 10.2 fL 04/16/2012 CBC 4253374 NNEKA % 64.3 % 04/16/2012 CBC 9013113 LY % 24.3 % 04/16/2012 CBC 3996668 MON % 9.0 % 04/16/2012 CBC 0589684 EOS % 1.9 % 04/16/2012 CBC 5157105 BASO % 0.5 % 04/16/2012 CBC 4001086 RDW 13.7 % 04/16/2012 CBC 3963585 ABS NNEKA 5.47 10e9/L 04/16/2012 CBC 1506958 ABS LYMPH 2.07 10e9/L 04/16/2012 CBC 6094743 ABS MONO 0.77 10e9/L 04/16/2012 CBC 4745954 ABS EOS 0.16 10e9/L 04/16/2012 CBC 1149997 ABS BASO 0.04 10e9/L 04/16/2012 CBC 3262274 RDW-SD 44.6 fL 04/16/2012 GFR CALC 8260581 GFR AA >60 ML/MIN 04/16/2012 GFR CALC 1884844 GFR NON -AA >60 ML/MIN 04/16/2012 URINALYSIS NONAUTO W/O SCOPE 96505 Specific [place] 1.015 DateTime(Free Text in Aprima) URINALYSIS NONAUTO W/O SCOPE 91176 PH 6.0 DateTime(Free Jim t in Aprima) URINALYSIS NONAUTO W/O SCOPE 17070 GLUCOSE neg DateTime(Free Jim t in Aprima) URINALYSIS NONAUTO W/O SCOPE 82031 Protein neg DateTime(Free Jim t in Aprima) URINALYSIS NONAUTO W/O SCOPE 96445 Blood 1+ DateTime(Free Text in Apr[employer]) URINALYSIS NONAUTO W/O SCOPE 77313 Bilirubin neg DateTime(Free Jim t in Aprima) URINALYSIS NONAUTO W/O SCOPE 47433 Ketones neg DateTime(Free Jim t in Apr[employer]) URINALYSIS NONAUTO W/O SCOPE 95577 Urobilinogen neg DateTime(Free Text in Apr[employer]) URINALYSIS NONAUTO W/O SCOPE 62438 Nitrite positive DateTime(Madi e Text in Aprima) URINALYSIS NONAUTO W/O SCOPE 14409 Leukocytes 1+ DateTime(Free Text in Aprima) UA 63771 Specific [place] 1.015 DateTime(Free Text in Aprima ) UA 18595 PH 5 DateTime(Free Text in Aprima ) UA 81692 GLUCOSE neg DateTime(Free Text in Aprima ) UA 47001 Protein neg DateTime(Free Text in Aprima ) UA 42014 Blood neg DateTime(Free Text in Aprima ) UA 70641 Bilirubin neg DateTime(Free Text in Aprima ) UA 49781 Ketones neg DateTime(Free Text in Aprima ) UA 35981 Urobilinogen neg DateTime(Free Text in Aprima ) UA 67711 Nitrite neg DateTime(Free Text in Aprima ) UA 30153 Leukocytes neg DateTime(Free Text in Aprima ) URINALYSIS NONAUTO W/O SCOPE 30548 Specific [place] 1.010 DateTime(Free Text in Aprima) URINALYSIS NONAUTO W/O SCOPE 90211 PH 5.0 DateTime(Free Jim t in Apr) URINALYSIS NONAUTO W/O SCOPE 11623 GLUCOSE NEG DateTime(Free Jim t in Apr[employer]) URINALYSIS NONAUTO W/O SCOPE 29011 Protein NEG DateTime(Free Jim t in Aprima) URINALYSIS NONAUTO W/O SCOPE 63130 Blood NEG DateTime(Free Jim t in Aprima) URINALYSIS NONAUTO W/O SCOPE 40220 Bilirubin NEG DateTime(Free Jim t in Aprima) URINALYSIS NONAUTO W/O SCOPE 75458 Ketones NEG DateTime(Free Jim t in Aprima) URINALYSIS NONAUTO W/O SCOPE 40027 Urobilinogen NEG DateTime(Free Text in Aprima) URINALYSIS NONAUTO W/O SCOPE 51365 Nitrite NEG DateTime(Free Jim t in Aprima) URINALYSIS NONAUTO W/O SCOPE 29712 Leukocytes ++ DateTime(Free Text in Aprima) URINALYSIS NONAUTO W/O SCOPE 43059 Specific [place] 1.010 DateTime(Free Text in Aprima) URINALYSIS NONAUTO W/O SCOPE 98150 PH 6.0 DateTime(Free Jim t in Aprima) URINALYSIS NONAUTO W/O SCOPE 49072 GLUCOSE NEG DateTime(Free Jim t in Aprima) URINALYSIS NONAUTO W/O SCOPE 70655 Protein NEG DateTime(Free Jim t in Aprima) URINALYSIS NONAUTO W/O SCOPE 57204 Blood NEG DateTime(Free Jim t in Aprima) URINALYSIS NONAUTO W/O SCOPE 77529 Bilirubin NEG DateTime(Free Jim t in Aprima) URINALYSIS NONAUTO W/O SCOPE 31890 Ketones NEG DateTime(Free Jim t in Aprima) URINALYSIS NONAUTO W/O SCOPE 98330 Urobilinogen NEG DateTime(Free Text in Aprima) URINALYSIS NONAUTO W/O SCOPE 16015 Nitrite NEG DateTime(Free Jim t in Aprima) URINALYSIS NONAUTO W/O SCOPE 31968 Leukocytes NEG DateTime(Free Text in Aprima) URINALYSIS NONAUTO W/O SCOPE 33681 Specific [place] 1.010 DateTime(Free Text in Aprima) URINALYSIS NONAUTO W/O SCOPE 13949 PH 5 DateTime(Free Text in Aprima) URINALYSIS NONAUTO W/O SCOPE 99277 GLUCOSE neg DateTime(Free Jim t in Aprima) URINALYSIS NONAUTO W/O SCOPE 10763 Protein neg DateTime(Free Jim t in Aprima) URINALYSIS NONAUTO W/O SCOPE 38986 Blood neg DateTime(Free Jim t in Aprima) URINALYSIS NONAUTO W/O SCOPE 31950 Bilirubin neg DateTime(Free Jim t in Aprima) URINALYSIS NONAUTO W/O SCOPE 04032 Ketones neg DateTime(Free Jim t in Aprima) URINALYSIS NONAUTO W/O SCOPE 92547 Urobilinogen neg DateTime(Free Text in Aprima) URINALYSIS NONAUTO W/O SCOPE 21274 Nitrite neg DateTime(Free Jim t in Aprima) URINALYSIS NONAUTO W/O SCOPE 40010 Leukocytes 1+ DateTime(Free Text in Aprima) URINALYSIS NONAUTO W/O SCOPE 90646 Specific [place] 1.015 DateTime(Free Text in Aprima) URINALYSIS NONAUTO W/O SCOPE 79183 PH 5 DateTime(Free Text in Aprima) URINALYSIS NONAUTO W/O SCOPE 07995 GLUCOSE neg DateTime(Free Jim t in Aprima) URINALYSIS NONAUTO W/O SCOPE 33375 Protein neg DateTime(Free Jim t in Apr[employer]) URINALYSIS NONAUTO W/O SCOPE 93621 Blood neg DateTime(Free Jim t in Apr[employer]) URINALYSIS NONAUTO W/O SCOPE 71484 Bilirubin neg DateTime(Free Jmi t in Aprima) URINALYSIS NONAUTO W/O SCOPE 15042 Ketones neg DateTime(Free Jim t in Apr[employer]) URINALYSIS NONAUTO W/O SCOPE 14558 Urobilinogen neg DateTime(Free Text in Apr[employer]) URINALYSIS NONAUTO W/O SCOPE 45469 Nitrite neg DateTime(Free Jim t in Aprima) URINALYSIS NONAUTO W/O SCOPE 22053 Leukocytes neg DateTime(Free Text in Apr[employer]) URINALYSIS NONAUTO W/O SCOPE 17230 Specific [place] 1.015 DateTime(Free Text in Apr[employer]) URINALYSIS NONAUTO W/O SCOPE 80336 PH 7 DateTime(Free Text in Apr[employer]) URINALYSIS NONAUTO W/O SCOPE 07445 GLUCOSE DateTime(Free Text i n Aprima) URINALYSIS NONAUTO W/O SCOPE 46552 Protein DateTime(Free Text i n Aprima) URINALYSIS NONAUTO W/O SCOPE 95861 Blood DateTime(Free Text i n Apr[employer]) URINALYSIS NONAUTO W/O SCOPE 54003 Bilirubin DateTime(Free Text i n Aprima) URINALYSIS NONAUTO W/O SCOPE 93367 Ketones DateTime(Free Text i n Aprima) URINALYSIS NONAUTO W/O SCOPE 99022 Urobilinogen DateTime(Free Text in Apr[employer]) URINALYSIS NONAUTO W/O SCOPE 84616 Nitrite DateTime(Free Text i n Apr[employer]) URINALYSIS NONAUTO W/O SCOPE 24519 Leukocytes DateTime(Fr ee Text in ) UA 13274 Specific [place] 6 DateTime(Free Text in ) UA 56022 PH 1.020 DateTime(Free Text in ) UA 99260 GLUCOSE N DateTime(Free Text in ) UA 80746 Protein N DateTime(Free Text in ) UA 92864 Blood N DateTime(Free Text in ) UA 46781 Bilirubin N DateTime(Free Text in ) UA 38874 Ketones N DateTime(Free Text in ) UA 40239 Urobilinogen N DateTime(Free Text in ) UA 88271 Nitrite POSITIVE DateTime(Free Text in ma) UA 52828 Leukocytes SMALL DateTime(Free Text in ) Review [...] Procedure Codes Date THER/PROPH/DIAG INJ SC/IM CPT-4: 91483Orecprj 01/04/2017 TRIAMCINOLONE ACET I [place] NOS CPT-4: T1961Oposonw 01/04/2017 TRIAMCINOLONE ACET I [place] NOS CPT-4: C7518Sigaryo 08/23/2016 THER/PROPH/DIAG INJ SC/IM CPT-4: 96186Viyyuoo 08/23/2016 ROUTINE VENIPUNCTURE CPT-4: 95979Jdnoegk 08/28/2014 ADMIN INFLUENZA VIRU S VAC Assigned to/Yancy Howell CPT-4: K7674Hvhrblp 05/20/2014 FLU VAC NO PRSV 4 VA L 3 YRS+ CPT-4: 58122Zuiltcx 05/20/2014 URINALYSIS NONAUTO W /O SCOPE CPT-4: 17263Faylept 05/07/2014 ROCEPHIN, PER 250 MG CPT-4: V7492Hoxwqan 05/07/2014 ROUTINE VENIPUNCTURE CPT-4: 99657Boverkr 04/14/2014 DESTRUCT PREMALG LES ION CPT-4: 77013Kdwbosl 01/27/2014 DESTRUCT PREMALG LES 2-14 CPT-4: 40885Vcjejrl 01/27/2014 ROCEPHIN, PER 250 MG CPT-4: C4887Ksvanca 12/26/2013 TRIAMCINOLONE ACET I [place] NOS CPT-4: O2565Ltjustr 12/26/2013 TRIAMCINOLONE ACET I [place] NOS CPT-4: T6464Bkwoctw 11/12/2013 ROUTINE VENIPUNCTURE CPT-4: 57776Mseifmh 11/12/2013 ROCEPHIN, PER 250 MG CPT-4: P2604Ybyzpdo 10/09/2013 ROUTINE VENIPUNCTURE CPT-4: 66500Scbbehc 03/31/2013 URINALYSIS NONAUTO W /O SCOPE CPT-4: 49172Ncowdyq 03/21/2013 TRIAMCINOLONE ACET I [place] NOS CPT-4: X8074Yxznswt 11/21/2012 URINALYSIS NONAUTO W /O SCOPE CPT-4: 90735Tdffmjj 09/30/2012 URINALYSIS NONAUTO W /O SCOPE CPT-4: 58855Rfoftlq 09/11/2012 ROUTINE VENIPUNCTURE CPT-4: 69507Webhazf 09/11/2012 PRESCRIP TRANSMIT A ERX SY CPT-4: Q7116Yxbbtfq 08/05/2012 ADMIN INFLUENZA VIRU S VAC CPT-4: O5575Gmortll 05/03/2012 FLULAVAL VACC, 3 YRS & >, IM CPT-4: M8196Rwhymeh 05/03/2012 EXC TR-EXT B9+ANA 0 .6-1 CM CPT-4: 93013Fympmul 04/23/2012 ROUTINE VENIPUNCTURE CPT-4: 56705Fvnidlg 04/16/2012 ROUTINE VENIPUNCTURE CPT-4: 63388Dxsqxoq 12/21/2011 PRESCRIP TRANSMIT A ERX SY CPT-4: C4413Cmqcxlp 12/04/2011 URINALYSIS NONAUTO W /O SCOPE CPT-4: 52504Pynxunz 12/01/2011 URINALYSIS NONAUTO W /O SCOPE CPT-4: 33859Krvaret 11/20/2011 PRESCRIP TRANSMIT A ERX SY CPT-4: N7762Nzjenty 09/20/2011 URINALYSIS NONAUTO W /O SCOPE CPT-4: 29658Oinwwyy 09/06/2011 ROCEPHIN, PER 250 MG CPT-4: J2073Birascs 08/30/2011 THER/PROPH/DIAG INJ SC/IM CPT-4: 48883Mmqqbkh 08/30/2011 ROUTINE VENIPUNCTURE CPT-4: 00313Eslcgba 08/30/2011 PRESCRIP TRANSMIT A ERX SY CPT-4: [id number] 08/30/2011 ROCEPHIN, PER 250 MG CPT-4: E8637Oyaebzw 08/23/2011 THER/PROPH/DIAG INJ SC/IM CPT-4: 50364Poejawu 08/23/2011 URINALYSIS NONAUTO W /O SCOPE CPT-4: 31795Mrwdvqg 08/23/2011 PRESCRIP TRANSMIT A ERX SY CPT-4: J0181Hobgyvq 08/23/2011 ROUTINE VENIPUNCTURE CPT-4: 02027Hzhjxzk 05/04/2011 PRESCRIP TRANSMIT A ERX SY CPT-4: A7352Qevalfd 05/04/2011 TRIAMCINOLONE ACET I [place] NOS CPT-4: H4075Cyaauzf 04/19/2011 THER/PROPH/DIAG INJ SC/IM CPT-4: 68763Pfgdnub 04/19/2011 PRESCRIP TRANSMIT A ERX SY CPT-4: D7184Mvadjgi 04/19/2011 Vital Signs Date Vital 02/02/2017 Blood Pressure 1: 152/72 Code: 8480-6 BMI: 39.7 Code: 19000-2 Heart Rate 1: 58 bpm Height: 5'3" SpO2: 95% Weight: 224 lbs 01/15/2017 Blood Pressure 1: 148/70 Code: 8480-6 Heart Rate 1: 65 bpm Height: SpO2: 96% Weight: 01/04/2017 Blood Pressure 1: 132/60 Code: 8480-6 BMI: 39.9 Code: 62864-6 Heart Rate 1: 57 bpm Height: 5'3" SpO2: 95% Weight: 225 lbs 09/07/2016 Blood Pressure 1: 144/70 Code: 8480-6 BMI: 37.6 Code: 76179-8 Heart Rate 1: 50 bpm Height: 5'3" SpO2: 96% Weight: 212 lbs 07/06/2016 Blood Pressure 1: 134/64 Code: 8480-6 BMI: 38.6 Code: 94646-9 Heart Rate 1: 60 bpm Height: 5'3" SpO2: 94% Weight: 218 lbs 06/16/2016 Blood Pressure 1: 140/80 Code: 8480-6 06/08/2016 Blood Pressure 1: 150/76 Code: 8480-6 BMI: 38.4 Code: 60814-0 Heart Rate 1: 60 bpm Height: 5'3" SpO2: 96% Weight: 217 lbs 04/17/2016 Blood Pressure 1: 150/70 Code: 8480-6 Heart Rate 1: 63 bpm SpO2: 93% 04/06/2016 Blood Pressure 1: 154/52 Code: 8480-6 BMI: 38.6 Code: 80557-6 Heart Rate 1: 54 bpm Height: 5'3" SpO2: 95% Weight: 218 lbs 03/10/2016 Blood Pressure 1: 160/64 Code: 8480-6 03/09/2016 Blood Pressure 1: 152/78 Code: 8480-6 BMI: 38.8 Code: 29013-1 Heart Rate 1: 63 bpm Height: 5'3" SpO2: 92% Weight: 219 lbs 01/18/2016 Blood Pressure 1: 144/72 Code: 8480-6 BMI: 39.0 Code: 73339-9 Heart Rate 1: 68 bpm Height: 5'3" SpO2: 93% Weight: 220 lbs 09/09/2015 Blood Pressure 1: 126/68 Code: 8480-6 BMI: 39.0 Code: 85756-6 Height: 5'3" SpO2: 94% Weight: 220 lbs 12/25/2014 Blood Pressure 1: 138/68 Code: 8480-6 BMI: 37.7 Code: 21451-2 Heart Rate 1: 68 bpm Height: 5'3" SpO2: 97% Weight: 213 lbs 10/13/2014 Blood Pressure 1: 118/68 Code: 8480-6 BMI: 39.3 Code: 91254-5 Heart Rate 1: 54 bpm Height: 5'3" SpO2: 98% Weight: 222 lbs 08/28/2014 Blood Pressure 1: 140/62 Code: 8480-6 Heart Rate 1: 60 bpm Weight: 212 lbs 08/07/2014 Blood Pressure 1: 138/62 Code: 8480-6 05/20/2014 [place] rature: 35.5 (C) / 95.9 (F) 05/07/2014 Blood Pressure 1: 148/70 Code: 8480-6 BMI: 38.6 Code: 91609-6 Heart Rate 1: 61 bpm Height: 5'3" SpO2: 96% Weight: 218 lbs 04/16/2014 Blood Pressure 1: 142/68 Code: 8480-6 BMI: 37.6 Code: 37087-6 Heart Rate 1: 58 bpm Height: 5'3" Weight: 212 lbs 01/27/2014 Blood Pressure 1: 122/62 Code: 8480-6 Blood Pressure 2: 118/60 Code: 8480-6 Heart Rate 1: 60 bpm Weight: 210 lbs 01/21/2014 Blood Pressure 1: 130/62 Code: 8480-6 BMI: 37.2 Code: 18033-9 Heart Rate 1: 68 bpm Height: 5'3" SpO2: 97% Weight: 210 lbs 01/07/2014 Blood Pressure 1: 108/58 Code: 8480-6 BMI: 36.8 Code: 71821-5 Heart Rate 1: 44 bpm Height: 5'3" Weight: 208 lbs 12/26/2013 Blood Pressure 1: 122/60 Code: 8480-6 BMI: 37.6 Code: 59600-9 Heart Rate 1: 56 bpm Height: 5'3" [...] 1: 136/72 Code: 8480-6 BMI: 36.7 Code: 97937-4 Heart Rate 1: 76 bpm Height: 5'3" Weight: 207 lbs 01/06/2013 Blood Pressure 1: 130/70 Code: 8480-6 BMI: 36.5 Code: 26056-8 Heart Rate 1: 72 bpm Height: 5'3" [...] 1: 138/66 Code: 8480-6 BMI: 38.3 Code: 99835-4 Heart Rate 1: 60 bpm Height: 5'3" [...] 1: 130/60 Code: 8480-6 BMI: 38.3 Code: 44030-0 Heart Rate 1: 60 bpm Height: 5'3" Weight: 216 lbs 12/25/2011 Blood Pressure 1: 142/76 Code: 8480-6 Heart Rate 1: 60 bpm Respiratory Rate: 20 bpm Weight: 213 lbs 12/04/2011 Blood Pressure 1: 142/64 Code: 8480-6 BMI: 38.6 Code: 36377-7 Heart Rate 1: 59 bpm Height: 5'3" Respiratory Rate: 20 bpm SpO2: 96% Weight: 218 lbs 09/20/2011 Blood Pressure 1: 166/68 Code: 8480-6 BMI: 36.5 Code: 22911-2 Heart Rate 1: 50 bpm Height: 5'3" [...] 1: 120/60 Code: 8480-6 BMI: 36.8 Code: 31742-2 Heart Rate 1: 64 bpm Height: 5'3" Respiratory Rate: 16 bpm Weight: 211 lbs 05/04/2011 Blood Pressure 1: 142/58 Code: 8480-6 BMI: 38.0 Code: 82887-8 Heart Rate 1: 56 bpm Height: 5'2" Respiratory Rate: 12 bpm Weight: 211 lbs 04/19/2011 Blood Pressure 1: 138/51 Code: 8480-6 BMI: 35.5 Code: 01997-7 Heart Rate 1: 66 bpm Height: 5'4" [...] Encounters Encounter Performer Loca tion Codes Date ([id number]) 66071 EST. P ATIENT, LEVEL III Diagnosis: Gastro-esophageal reflux 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[ICD10: K21.9] Diagnosis: Urinary tract infection, site not specified[ICD10: N39.0] Diagnosis: Localized edema[ICD10: R60.0] [facility] CPT- 4: 57027 02/02/2017 ([id number]) 38979 EST. P ATIENT, LEVEL III Diagnosis: Acute recurrent maxillary sinusitis[ICD10: J01.01] Diagnosis: Cough[ICD10: R05] [facility] CPT-4: 22023 01/15/2017 ([id number]) 73086 EST. P ATIENT, LEVEL IV Diagnosis: Essential (primary) hypertension[ICD10: I10] Diagnosis: Mixed hyperlipidemia[ICD10: E78.2] Diagnosis: Pain in left knee[ICD10: M25.562] Diagnosis: Allergic rhinitis due to pollen[ICD10: J30.1] Concepción Flanagan MD, C CPT-4: 68307 01/04/2017 ([id number]) 60221 EST. P ATIENT, LEVEL IV Diagnosis: Essential (primary) hypertension[ICD10: I10] Diagnosis: Major depressive disorder, recurrent, moderate[ICD10: F33.1] Concepción Flanagan MD, [facility] CPT-4: 23918 09/07/2016 ([id number]) 61174 EST. P ATIENT, LEVEL III Diagnosis: Essential (primary) hypertension[ICD10: I10] Concepción Flanagan MD, [facility] CPT-4: 30123 07/06/2016 ([id number]) Miscellaneou s no charge Diagnosis: Essential (primary) hypertension[ICD10: I10] Hayley Flanagan MD, [facility] CPT-4: 97726 06/16/2016 ([id number]) 44550 EST. P ATIENT, LEVEL III Diagnosis: Essential (primary) hypertension[ICD10: I10] Diagnosis: Generalized anxiety disorder[ICD10: F41.1] Concepción Flanagan MD, C CPT-4: 54160 06/08/2016 ([id number]) Miscellaneou s no charge Diagnosis: Essential (primary) hypertension[ICD10: I10] Hayley Flanagan MD, [facility] CPT-4: 85111 04/17/2016 ([id number]) 13778 EST. P ATIENT, LEVEL IV Diagnosis: Essential (primary) hypertension[ICD10: I10] Diagnosis: Localized edema[ICD10: R60.0] Concepción Flanagan MD, [facility] CPT-4: 33160 04/06/2016 ([id number]) Miscellaneou s no charge Diagnosis: Essential (primary) hypertension[ICD10: I10] Chaparrita Flanagan MD, [facility] CPT-4: 88092 03/10/2016 ([id number]) 22476 EST. P ATIENT, LEVEL IV Diagnosis: Essential (primary) hypertension[ICD10: I10] Diagnosis: Mixed hyperlipidemia[ICD10: E78.2] Diagnosis: Hypothyroidism, unspecified[ICD10: E03.9] Diagnosis: Generalized anxiety disorder[ICD10: F41.1] Chaparrita Flanagan MD, [facility] CPT-4: 11879 03/09/2016 ([id number]) 13667 EST. 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 P ATIENT, LEVEL IV Diagnosis: ESSENTIAL HYPERTENSION[ICD9: 401.9] Diagnosis: Sleep apnea[ICD9: 780.57] Diagnosis: ANEMIA[ICD9: 285.9] [facility] CPT-4: 78977 12/25/2014 ([id number]) 24593 EST. P ATIENT, LEVEL III Diagnosis: ESSENTIAL HYPERTENSION[ICD9: 401.9] [facility] CPT- 4: 89920 10/13/2014 ([id number]) 85762 EST. P ATIENT, LEVEL IV Diagnosis: HYPOTHYROIDISM[ICD9: 244.9] Diagnosis: HYPERLIPIDEMIA[ICD9: 272.4] Diagnosis: ESSENTIAL HYPERTENSION[ICD9: 401.9] Diagnosis: ENCNTR LONG-RX USE NEC[ICD9: V58.69] Diagnosis: Sleep apnea[ICD9: 780.57] Concepción Flanagan MD, [facility] CPT-4: 72452 08/28/2014 ([id number]) Miscellaneou s no charge Diagnosis: ESSENTIAL HYPERTENSION[ICD9: 401.9] Concepción Flanagan MD, [facility] CPT- 4: 15575 08/07/2014 ([id number]) 19246 EST. P ATIENT, LEVEL IV Diagnosis: EDEMA[ICD9: 782.3] Diagnosis: ACUTE SINUSITIS[ICD9: 461.9] Diagnosis: Urinary tract infection[ICD9: 599.0] Diagnosis: Nocturnal hypoxia[ICD9: 799.02] Chaparrita Flanagan MD, [facility] CPT- 4: 74856 05/07/2014 ([id number]) 36279 EST. P ATIENT, LEVEL IV Diagnosis: ESSENTIAL HYPERTENSION[ICD9: 401.9] Diagnosis: HYPERLIPIDEMIA[ICD9: 272.4] Diagnosis: JOINT PAIN-L/LEG[ICD9: 719.46] Concepción Flanagan MD, [facility] CPT-4: 88994 04/16/2014 ([id number]) 21575 EST. P ATIENT, LEVEL IV Diagnosis: ESSENTIAL HYPERTENSION[SNOMED: 18532303] Diagnosis: HYPERLIPIDEMIA[ICD9: 272.4] Diagnosis: HYPOTHYROIDISM[ICD9: 244.9] Diagnosis: Nocturnal hypoxaemia[ICD9: 799.02] Concepción Flanagan MD, [facility] CPT- 4: 16892 01/21/2014 ([id number]) 11689 EST. P ATIENT, LEVEL III Diagnosis: ESSENTIAL HYPERTENSION[SNOMED: 92560844] Diagnosis: Bradycardia[ICD9: 427.89] Concepción Flanagan MD, [facility] CPT-4: 39665 01/07/2014 ([id number]) 88377 EST. P ATIENT, LEVEL III Diagnosis: ACUTE URI[ICD9: 465.9] Diagnosis: COUGH[ICD9: 786.2] Chaparrita Flanagan MD, [facility] CPT-4: 95877 12/26/2013 ([id number]) 65181 EST. P ATIENT, LEVEL III Diagnosis: ALLERGIC RHINITIS[ICD9: 477.9] Diagnosis: HYPERLIPIDEMIA[ICD9: 272.4] Diagnosis: ESSENTIAL HYPERTENSION[SNOMED: 62913569] Diagnosis: ENCNTR LONG-RX USE NEC[ICD9: V58.69] Diagnosis: Laboratory exam ordered as part of routine general medical examination[ICD9: V72.62] Diagnosis: HYPOTHYROIDISM[ICD9: 244.9] Chaparrita Flanagan MD, [facility] CPT- 4: 30640 11/12/2013 ([id number]) 07148 EST. P ATIENT, LEVEL III Diagnosis: Acute maxillary sinusitis[ICD9: 461.0] Chaparrita Flanagan MD, [facility] CPT-4: 11493 10/09/2013 ([id number]) 85629 EST. P ATIENT, LEVEL III Diagnosis: ESSENTIAL HYPERTENSION[SNOMED: 52479917] Diagnosis: DYSURIA[ICD9: 788.1] Concecpión Flanagan MD, [facility] CPT-4: 99239 04/03/2013 ([id number]) 08103 EST. P ATIENT, LEVEL III Diagnosis: ESSENTIAL HYPERTENSION[SNOMED: 50945383] Diagnosis: EDEMA[ICD9: 782.3] Concepción Flanagan MD, [facility] CPT-4: 35046 01/06/2013 ([id number]) 91551 EST. P ATIENT, LEVEL III Diagnosis: UNSPECIFIED ASTHMA[ICD9: 493.90] Diagnosis: Cough[ICD9: 786.2] Diagnosis: ALLERGIC RHINITIS[ICD9: 477.9] Concepción Flanagan MD, [facility] CPT-4: 62760 11/21/2012 ([id number]) 30178 EST. P ATIENT, LEVEL IV Diagnosis: ESSENTIAL HYPERTENSION[SNOMED: 16271616] Diagnosis: EDEMA[ICD9: 782.3] Concepción Flanagan MD, [facility] CPT-4: 36210 10/28/2012 ([id number]) 35692 EST. P ATIENT, LEVEL IV Diagnosis: ESSENTIAL HYPERTENSION[SNOMED: 34896672] Diagnosis: EDEMA[ICD9: 782.3] Diagnosis: Knee pain, right[ICD9: 719.46] Diagnosis: Urge incontinence[ICD9: 788.31] Concepción Flanagan MD, [facility] CPT-4: 00609 09/30/2012 ([id number]) 40408 EST. P ATIENT, LEVEL III Diagnosis: ESSENTIAL HYPERTENSION[SNOMED: 64196026] Concepción Flanagan MD, C CPT-4: 05464 08/14/2012 ([id number]) 67216 EST. P ATIENT, LEVEL III Diagnosis: CELLULITIS OF LEG[ICD9: 682.6] Concepción Flanagan MD, [facility] CPT-4: 50262 08/05/2012 ([id number]) 10313 EST. P ATIENT, LEVEL IV Diagnosis: ESSENTIAL HYPERTENSION[SNOMED: 57594093] Diagnosis: EDEMA[ICD9: 782.3] Diagnosis: Constipation[ICD9: 564.00] Concepción Flanagan MD, [facility] CPT-4: 12519 07/15/2012 ([id number]) 94818 EST. P ATIENT, LEVEL III Diagnosis: Subungual contusion of toenail[ICD9: 924.3] Concepción Flanagan MD, C CPT-4: 57437 05/27/2012 Postop follow up vis it related to original px Diagnosis: BENIGN ERLINDA SKIN ARM[ICD9: 216.6] Diagnosis: BENIGN ERLINDA SKIN TRUNK[ICD9: 216.5] Concepción Flanagan MD, [facility] CPT- 4: 51394 05/03/2012 ([id number]) 46573 EST. P ATIENT, LEVEL IV Diagnosis: ESSENTIAL HYPERTENSION[SNOMED: 87878213] Diagnosis: OA (osteoarthritis) of knee[ICD9: 715.96] Diagnosis: EDEMA[ICD9: 782.3] [facility] CPT-4: 15754 03/25/2012 13637 EST. PATIENT, LEVEL IV Diagnosis: ESSENTIAL HYPERTENSION[SNOMED: 38408539] Diagnosis: Abdominal bloating[ICD9: 787.3] Concepción Flanagan MD, [facility] CPT-4: 45009 03/12/2012 ([id number]) 03702 EST. P ATIENT, LEVEL IV Diagnosis: ESSENTIAL HYPERTENSION[SNOMED: 19801637] Diagnosis: EDEMA[ICD9: 782.3] Concepción Flanagan MD, [facility] CPT-4: 35392 01/23/2012 ([id number]) 39503 EST. P ATIENT, LEVEL III Diagnosis: Breast pain, left[ICD9: 611.71] Chaparrita Flanagan MD, [facility] CPT- 4: 78740 01/12/2012 ([id number]) 95049 EST. P ATIENT, LEVEL IV Diagnosis: ESSENTIAL HYPERTENSION[SNOMED: 48397117] Diagnosis: DEPRESSIVE DISORDER NEC[ICD9: 311] Diagnosis: ANXIETY STATE[ICD9: 300.00] Concepción Flanagan MD, [facility] CPT-4: 01355 12/25/2011 ([id number]) 85210 EST. P ATIENT, LEVEL IV Diagnosis: ESSENTIAL HYPERTENSION[SNOMED: 29083462] Diagnosis: EDEMA[ICD9: 782.3] Concepción Flanagan MD, [facility] CPT-4: 04456 12/04/2011 ([id number]) 27174 EST. P ATIENT, LEVEL IV Diagnosis: ESSENTIAL HYPERTENSION[SNOMED: 26847890] Diagnosis: DEPRESSIVE DISORDER NEC[ICD9: 311] Concepción Flanagan MD, [facility] CPT- 4: 97205 09/20/2011 81241 EST. PATIENT, LEVEL IV Diagnosis: Dysuria[ICD9: 788.1] Diagnosis: ESSENTIAL HYPERTENSION[SNOMED: 41368685] Diagnosis: Anxiety[ICD9: 300.00] Concepción Flanagan MD, [facility] CPT-4: 56637 09/06/2011 ([id number]) 60335 EST. P ATIENT, LEVEL IV Diagnosis: LUMBAGO[ICD9: 724.2] Diagnosis: ESSENTIAL HYPERTENSION[SNOMED: 58519105] Concepción Flanagan MD, [facility] CPT-4: 89458 08/30/2011 21185 EST. PATIENT, LEVEL III Diagnosis: ACUTE SINUSITIS[ICD9: 461.9] Diagnosis: Urinary frequency[ICD9: 788.41] Chaparrita Flanagan MD, [facility] CPT- 4: 84925 08/23/2011 90001 EST. PATIENT, LEVEL III Diagnosis: Lesion of labia[ICD9: 624.8] [facility] CPT- 4: 29261 08/09/2011 60748 EST. PATIENT, LEVEL IV Diagnosis: HYPOTHYROIDISM[ICD9: 244.9] Diagnosis: HYPERLIPIDEMIA[ICD9: 272.4] Diagnosis: BP (high blood pressure)[SNOMED: 97955343] Diagnosis: Knee pain, bilateral[ICD9: 719.46] Diagnosis: ESOPHAGEAL REFLUX[ICD9: 530.81] Concepción Flanagan MD, [facility] CPT-4: 57059 05/04/2011 84842 EST. PATIENT, LEVEL III Diagnosis: ACUTE URI[ICD9: 465.9] Diagnosis: Asthma[ICD9: 493.90] Diagnosis: Esophageal reflux[ICD9: 530.81] Chaparrita Flanagan MD, [facility] CPT- 4: 16206 04/19/2011 Plan of Care Planned Activity Notes C odes Status Date Visit Plan: Esophageal Reflux - the bessie [...] needed Edema-take lasix every day-follow up Sunday02/02/2017 Patient Education: Patient Medication Summary Completed 02/02/2017 Patient Education: Obesity Completed 02/02/2017 Visit Plan: Sinusitis - Pt has acute inf ection - pain in face, maxillary region, Pt informed to use decongestant, RX given to patient, sinus rinses also recommended. Call if symptoms do not show improvement. 01/15/2017 Appointment: Chaparrita Arrieta WPtel: [address] [place], [place] [phone] (10 min) Simple 01/15/2017 Patient Education: Patient [...] today 01/04/2017 Appointment: Concepción Flanagan WPtel: [phone] [facility] (15 min) Moderate 01/04/2017 Patient Education: Patient [...] (lexapro). 09/07/2016 Appointment: Concepción Flanagan WPtel: [phone] [facility] (30 min) Complex 09/07/2016 Patient Education: Patient [...] home. 07/06/2016 Appointment: Concepción Flanagan WPtel: [phone] [facility] (15 min) Moderate 07/06/2016 Patient Education: Patient [...] TWICE DAILY 06/08/2016 Appointment[phone] ([facility] min) Moderate 06/08/2016 Patient Education: [...] peripheral edema. 04/06/2016 Appointment: [facility]pción Fl[facility]agan [facility] [phone] [facility] (15 min) Moderate 04/06/2016 Patient Education: [...] an overnight oxygen for Mikala. 01/18/2016 Appointment: [facility]itoDemiy [facility]el[phone] [facility] (15 min) Moderate 01/18/2016 Patient Education: [...] fatigue improved-will fax today's note to [employer] for re- certification of oxygen. 09/09/2015 Visit [...] fatigue improved-will fax today's note to [employer] for re- certification of oxygen. 09/09/2015 Appointment: [...] discuss with her son who is a Transmitter Chief - and consider re- evaluation for nasal pillows with her cpap since she could not tolerate a face mask cpap in the past. 12/25/2014 Appointment: Concepción Flanagan WPtel: [phone] [facility] Follow up 12/25/2014 Patient Education: Patient Medication Summary Completed 12/25/2014 Patient Education: Hypertension Completed 12/25/2014 Visit Plan: Hypertension - well control ed - continue with current medications, continue with no added salt diet. Pt has been encouraged to exercise daily.The pt has been advised to call the office if there are any acute concerns about change in blood pressure readings at home. 10/13/2014 Appointment: Concepción Flanagan WPtel: [phone] [facility] Follow up 10/13/2014 Patient Education: Patient Medication [...] . 08/28/2014 Appointment: Concepción Flanagan WPtel: [phone] [facility] Follow up 08/28/2014 Patient Education: Patient Medication [...] creatinine. 04/16/2014 Appointment: [facility]agan [phone] Follow up 04/16/2014 Patient Education: Patient Medication Summary Completed 04/16/2014 Patient Education: Patient Medication Summary Completed 04/14/2014 Patient Education: Hypertension Completed 04/14/2014 Visit Plan: Wound Instructions - Pt was instruced to keep the wound clean, wash with antibacterial soap, use triple antibiotic ointment, call if redness, pustular drainage, or any other acute conerns. 01/27/2014 Appointment: Concepción Flanagan [facility]el[phone] [facility] Surgical Procedure 01/27/2014 Patient Education: Patient [...] home eval. 2013 Appointment: Concepción Flanagan [facility]Ptel[phone] [facility] Follow up 01/21/2014 Patient Education: Patient Medication Summary Completed 01/21/2014 Patient Education: Hypertension Completed 01/21/2014 Visit Plan: Hypotension - Bradycardia - pt to stop her metroprolol - check bp and heart rate twice daily and monitor symptoms. Call if bp uncontrolled- or heart rate to elevated. 01/07/2014 Appointment: Concepción Flanagan WPtel: [phone] [facility] Follow up 01/07/2014 Patient Education: Hypertension Completed [...] swallow 2013 Appointment: Chaparrita Arrieta WPtel: [phone] [phone] [place] [address] 11/12/2013 Patient Education: Patient Medication Summary Completed 11/12/2013 Patient Education: Hypertension Completed 11/12/2013 Visit Plan: Sinusitis - Pt has acute inf ection - pain in face, maxillary region, Pt informed to use decongestant, RX given to patient, sinus rinses also recommended. Call if symptoms do not show improvement. 10/09/2013 Appointment: Chaparrita Arrieta WPtel: [phone] [place] [address] 10/09/2013 Patient Education: Patient Medication Summary Completed 10/09/2013 Visit Plan: Hypertension - well controll ed - continue with current medications, continue with no added salt diet. Pt has been encouraged to exercise daily.The pt has been advised to call the office if there are any acute concerns about change in blood pressure readings at home.Dysuria - check UA 2012 Appointment: Concepción Flanagan WPtel: [facility] Follow up 04/03/2013 Patient Education: Patient Medication Summary Completed 04/03/2013 Patient Education: Hypertension Completed 04/03/2013 Patient Education: Patient Medication Summary Completed 03/31/2013 Patient Education: Hypertension Completed 03/31/2013 Visit Plan: ua performed - sent for culture if indicat ed. 03/21/2013 Appointment: Concepción Flanagan WPtel: [facility]4 [facility] Lab Draw 03/21/2013 Patient Education: Patient Medication [...] edema. 01/06/2013 Appointment: Concepción Flanagan WPtel: [phone] [facility] Follow up 01/06/2013 Patient Education: Patient Medication Summary Completed 01/06/2013 Patient Education: Hypertension Completed 01/06/2013 Visit Plan: Awulezmhj-Epqhsu-bvsjosgl no t well controlled-KENALOG injection today in [...] edema. 10/28/2012 Appointment: Concepción Flanagan WPtel: [phone] [phone] Follow up 10/28/2012 Patient Education: Patient Medication [...] treatment recommendations. 09/30/2012 Appointment: Concepción Flanagan WPtel: [facility]5 [facility] Follow up 09/30/2012 Patient Education: Patient Medication Summary Completed 09/30/2012 Patient Education: Hypertension Completed 09/30/2012 Appointment: Concepción Flanagan WPtel: [address] [place], [place] [phone] Lab Draw 09/11/2012 Patient Education: Patient Medication [...] - resolved 2011 Appointment: Concepción Flanagan WPtel: [address] [place], [place] [phone] Follow up 08/14/2012 Patient Education: Patient Medication Summary Completed 08/14/2012 Patient Education: Hypertension Completed 08/14/2012 Visit Plan: Cellulitis - start with gene gail Bactrim DS as directed, return to clinic as previously directed, call for acute change in symptoms, worsening redness, warmth, discharge. 08/05/2012 Appointment: Concepción Flanagan WPtel: [address] [place], [place] [phone] Follow up 08/05/2012 Patient Education: Patient Medication [...] stools. 07/15/2012 Appointment: [facility] Flanagan [facility]Ptel[phone] [facility] [facility] follow up 07/15/2012 Patient [...] nail. 05/27/2012 Appointment: Concepción Flanagan WPtel: [phone] [facility] [facility] 05/27/2012 Patient Education: Patient Medication Summary Completed 05/27/2012 Appointment[phone] Follow up 05/16/2012 Visit Plan: [...] todayInfluenza vaccine 05/03/2012 Appointment: Chaparrita Arrieta WPtel: [phone] [phone] Follow up 05/03/2012 Patient Education: Patient Medication Summary Completed 05/03/2012 Visit Plan: Wound Instructions - Pt was instruced to keep the wound clean, wash with antibacterial soap, use triple antibiotic ointment, call if redness, pustular drainage, or any other acute conerns. 04/23/2012 Appointment: Concepción Flanagan WPtel: [facility] Surgical Procedure 04/23/2012 Patient Education: Patient Medication Summary Completed 04/23/2012 Appointment: Concepción Flanagan WPtel: [facility] [place] [phone] Lab Draw 04/16/2012 Patient Education: Patient Medication [...] pressure readings at home.Recommend follow up with [employer] commerce consultant for clearance before knee surgery. Will get [...] to thighs. 2011 Appointment: Concepción Flanagan WPtel: [id number] Other 03/25/2012 Patient Education: Patient Medication Summary [...] of lesion. 03/12/2012 Appointment: Chaparrita Arrieta WPtel: [phone] [id number] [place] Other 03/12/2012 Patient Education: Patient Medication [...] at home. 01/23/2012 App[facility]ment[phone] [place] Other 01/23/2012 Patient Education: Patient Medication Summary Completed 01/23/2012 Patient Education: High Blood Pressure: Essential Hypertension Completed 01/23/2012 Visit Plan: Breast ketj-pqmr-luesumshd n atural and expected course of this diagnosis and to alert me if symptoms do not follow expected course, or if any worse. Plan for diagnostic mammogram, in meantime, instructed patient to get more supportive bra, use anti-inflammatories and monitor symptoms. Patient verbalized understanding of plan. 01/12/2012 Appointment: Chaparrita Arrieta WPtel: [phone] [id number] Other 01/12/2012 Patient Education: Patient Medication Summary [...] current medications. 12/25/2011 Appointment: Concepción Flanagan WPtel: [facility] [place] [address] [place] Other 12/25/2011 Patient Education: Patient Medication [...] COMPRESSION SOCKS. 2011 Appointment: Concepción Flanagan WPtel: [phone] [facility] Other 12/04/2011 Patient Education: Patient Medication Summary Completed 12/04/2011 Patient Education: High Blood Pressure: Essential Hypertension Completed 12/04/2011 Appointment: Chaparrita Arrieta WPtel: [phone] [id number] Lab Draw 12/01/2011 Patient Education: Patient Medication Summary Completed 12/01/2011 Appointment: Concepción Flanagan WPtel: [phone] [facility] Lab Draw 11/20/2011 Patient Education: Patient Medication [...] acutely worsen. 09/20/2011 Appointment: Concepción Flanagan WPtel: [facility] Other 09/20/2011 Patient Education: Patient Medication Summary Completed 09/20/2011 Patient Education: High Blood Pressure: Essential Hypertension Completed 09/20/2011 Appointment: Concepción Flanagan WPtel: [facility] Other 09/13/2011 Visit Plan: Hypertension - The [...] and benefits of treament with the above medications.Djvcnpx-gtvftxnh-PS negative 09/06/2011 Appointment: Chaparrita Arrieta WPtel: [phone] [id number] [place] [address] Other 09/06/2011 Patient Education: Patient Medication Summary [...] they worsen. 08/30/2011 Appointment[phone] [place] Other 08/30/2011 Patient Education: Patient Medication [...] patient's pharmacy. 2010 Appointment: Chaparrita Arrieta WPtel: [phone] [id number] [place] [address] Other 08/23/2011 Patient Education: Patient Medication Summary Completed 08/23/2011 Visit Plan: Labial cyst-discussed natura l and expected course of this diagnosis and to alert me if symtpoms do not follow expected course, or if any worse. Patient and verbalized understanding. 08/09/2011 Appointment: Chaparrita Arrieta WPtel: [phone] Other 08/09/2011 Patient Education: Patient Medication Summary [...] not improving. 05/04/2011 Appointment: Concepción Flanagan WPtel[facility] Other 05/04/2011 Patient Education: Patient Medication Summary [...] daily. 04/19/2011 Appointment[phone] [place] Other 04/19/2011 Patient Education: Patient [...] twice daily and monitor symptoms. . Breast okkp-szur-xcjvpmpqz natural and expected course of this diagnosis [...] discuss with her son who is a Transmitter Chief - and consider re-evaluation for nasal pillows [...] do not improve, or if any worse.. Instglxxq-Erfvkv-btutqrqf not well controlled-KENALOG injection today in the [...] benefits of treament with the above medications. Nhpvlwm-cwqoqgrx-QR negative . Hypertension - wel l controlled [...] if symptoms acutely worsen. Appointment with alexa mohamdu-Dr. Luther For your pain, we have given [...] readings at home. Recommend follow up with [employer] commerce consultant for clearance before knee surgery. Will get [...]
--- OUTSIDE RECORDS SUMMARY | 2020-01-05 02:03 | XMS REPORT | Continuity of Care Document ---
Author Organization Unknown Address Unknown Phone Unavailable Allergies Active Description Code Type Severity Reaction Onset Reported/Identified Relationship to Patient Clinical Status Yes No Known Drug Allergies [id number] Drug Allergy Unknown N/A 05/18/2010 Yes morphine [id number] Drug Allergy Mild CONFUSION 12/18/2018 Medications There is no data. Problems Date Dx Coded Attending Type Code Diagnosis Diagnosed By 07/26/1354 CAYETANO STAUFFER, TOMMY Herrera Ot M79.604 PAIN IN RIGHT LEG 07/26/1354 CAYETANO STAUFFER, TOMMY Herrera Ot M79.605 PAIN IN LEFT LEG 07/26/1354 CAYETANO STAUFFER, TOMMY Herrera Ot R26.81 UNSTEADINESS ON FEET 07/26/1354 CAYETANO STAUFFER, TOMMY Herrera Ot R53.1 WEAKNESS 07/26/1354 CAYETANO STAUFFER, TOMMY Herrera Ot Z96.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 LEFT ARTIFICIAL KNEE JOINT 07/26/1699 CAYETANO STAUFFER, TOMMY Herrera Ot I89.0 LYMPHEDEMA, NOT ELSEWHERE CLASSIFIED 05/18/2010 Ot 717.2 05/18/2010 Ot 717.7 05/18/2010 Ot 733.92 05/18/2010 Ot V57.1 06/24/2012 Ot 244.9 HYPO THYROIDISM NOS 06/24/2012 Ot 272.0 PURE HYPERCHOLESTEROLEM 06/24/2012 Ot 278.01 MOR BID OBESITY 06/24/2012 Ot 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 06/24/2012 Ot 311 DEPRES SIVE DISORDER NEC 06/24/2012 Ot 355.9 MONO NEURITIS NOS 06/24/2012 Ot 401.9 HYPE RTENSION NOS 06/24/2012 Ot 493.90 AST HMA, UNSPECIFIED 06/24/2012 Ot 530.81 ESO PHAGEAL REFLUX 06/24/2012 Ot 564.00 UNS PEC CONSTIPATION 06/24/2012 Ot 715.36 LOC OSTEOARTH NOS-L/LEG 06/24/2012 Ot 788.63 URG ENCY OF URINATION 06/24/2012 Ot V85.36 BOD Y MASS INDEX 36.0-36.9, ADULT 09/17/2012 Ot V43.65 KNE E JOINT REPLACEMENT STATUS 09/17/2012 Ot V54.81 AFT ERCARE FOLLOWING JOINT REPLACEMENT 09/17/2012 Ot V57.1 PHYS ICAL THERAPY NEC 10/15/2013 JEEVAN LUNSFORD MD Ot [...] FALL FROM SLIPPING, TRIPPING, OR STUMBLI 08/06/2014 TOMMY MONTEIRO MD Ot 401.9 08/06/2014 TOMMY MONTEIRO MD Ot 49 6 08/06/2014 TOMMY MONTEIRO MD Ot 799.02 08/06/2014 TOMMY MONTEIRO MD Ot V76.12 08/17/2014 TOMMY MONTEIRO MD Ot 401.9 08/17/2014 TOMMY MONTEIRO MD Ot 49 6 08/17/2014 TOMMY MONTEIRO MD Ot 799.02 08/17/2014 [...] CAYETANO STAUFFER, TOMMY Herrera Ot V49.81 08/24/2014 JEEVAN LUNSFORD MD Ot V72.84 08/24/2014 CAYETANO STAUFFER, TOMMY Herrera Ot 401.9 08/24/2014 TOMMY MONTEIRO MD Ot 49 6 08/24/2014 CAYETANO STAUFFER, TOMMY Herrera Ot 799.02 [...] A Ot 733.00 09/03/2014 CAYETANO STAUFFER, TOMMY Herrera Ot V49.81 09/03/2014 ISATU STAUFFER, JEEVAN Ot V72.84 09/03/2014 CAYETANO STAUFFER, TOMMY Herrera Ot 401.9 09/03/2014 CAYETANO STAUFFER, TOMMY Herrera Ot 49 6 09/03/2014 CAYETANO STAUFFER, TOMMY Herrera Ot 799.02 09/03/2014 CAYETANO STAUFFER, TOMMY Herrera Ot V76.12 09/03/2014 ZORA JACOB MD Ot 278. 00 09/03/2014 ZORA JACOB MD Ot 719. 46 09/03/2014 ZORA JACOB MD Ot 721. 3 09/03/2014 ZORA JACOB MD Ot 729. 1 09/03/2014 CECIL STAUFFER, ZORA Hanson Ot V43. 65 09/03/2014 CECIL STAUFFER, ZORA Hanson Ot V58. 69 09/03/2014 CECIL STAUFFER, ZORA Hanson Ot V85. 39 09/04/2014 CAYETANO STAUFFER, TOMMY Herrera Ot 401.9 09/04/2014 CAYETANO STAUFFER, TOMMY Herrera Ot 49 6 09/04/2014 CAYETANO STAUFFER, TOMMY Herrera Ot 799.02 09/04/2014 CAYETANO STAUFFER, TOMMY Herrera Ot V76.12 09/07/2014 MICHEAL LOWE PAIN MANAGEMENT PHYSICIAN Ot 285.9 09/26/2014 MICHAEL LOWE PAIN MANAGEMENT PHYSICIAN Ot 285.9 10/15/2014 MICHAEL LOWE PAIN MANAGEMENT PHYSICIAN Ot 285.9 2014 ZORA JACOB MD Ot 278. 00 OBESITY, NOS 2014 ZORA JACOB MD Ot 719. 46 JOINT PAIN-L/LEG 2014 ZORA JACOB MD Ot 721. 3 LUMBOSACRAL SPONDYLOSIS 2014 ZORA JACOB MD Ot 729. 1 MYALGIA AND MYOSITIS NOS 2014 ZORA JACOB MD Ot V58. 69 OTH MED,LT,CURRENT USE 2014 ZORA JACOB MD Ot V85. 38 BODY MASS INDEX 38.0-38.9, ADULT 10/22/2014 ZORA JACOB MD Ot 278. 00 10/22/2014 ZORA JACOB MD Ot 719. 46 10/22/2014 ZORA JACOB MD, Ot 721. 3 10/22/2014 ZORA JACOB MD, Ot 729. 1 10/22/2014 ZORA JACOB MD Ot V43. 65 10/22/2014 ZORA JACOB MD, Ot V58. 69 10/22/2014 ZORA JACOB MD Ot V85. 39 12/07/2014 ZORA JACOB MD Ot 719. 46 JOINT PAIN-L/LEG 12/07/2014 ZORA JACOB MD Ot 721. 3 LUMBOSACRAL SPONDYLOSIS 12/07/2014 ZORA JACOB MD Ot 729. 1 MYALGIA AND MYOSITIS NOS 12/07/2014 ZORA JACOB MD Ot V43. 65 KNEE JOINT REPLACEMENT STATUS 12/07/2014 ZORA JACOB MD Ot V58. 69 OTH MED,LT,CURRENT USE 02/16/2016 Ot 272.4 HYPE RLIPIDEMIA NEC/NOS 02/16/2016 Ot 401.9 HYPE RTENSION NOS 02/16/2016 Ot 795.5 TUBE RCULIN TEST REACTION WO TUBERCULOSIS 02/16/2016 Ot V76.12 OT SCREEN MAMMO- MALIGN NEOPLASM OF SUZI 02/16/2016 Ot 611.71 MAS TODYNIA 02/16/2016 Ot 715.36 LOC OSTEOARTH NOS-L/LEG 02/16/2016 Ot V57.1 PHYS ICAL THERAPY NEC 02/16/2016 Ot V57.21 ENC OUNTER FOR OCCUPATIONAL THERAPY 02/16/2016 Ot V72.63 PRE -PROCEDURAL LABORATORY EXAMINATION 02/16/2016 Ot V72.81 [id number] CARDIOVASCULAR 02/16/2016 Ot V74.8 SCRE EN-BACTERIAL DIS NEC 02/16/2016 TOMMY MONTEIRO MD Ot V76.12 OTH SCREEN MAMMO-MALIGN NEOPLASM OF SUZI 02/16/2016 TOMMY MONTEIRO MD Ot 733.00 OSTEOPOROSIS NOS 02/16/2016 TOMMY MONTEIRO MD Ot V49.81 ASYMPT POSTMENOPAUSAL STATUS (AGE-RELATE 02/16/2016 ISATU STAUFFER, JEEVAN Ot V72.84 EXAM PRE-OPERATIVE NOS 02/16/2016 TOMMY MONTEIRO MD Ot 401.9 HYPERTENSION NOS 02/16/2016 TOMMY MONTEIRO MD Ot 49 6 CHR AIRWAY OBSTRUCT NEC 02/16/2016 TOMMY MONTEIRO MD Ot 799.02 HYPOXEMIA 02/16/2016 TOMMY MONTEIRO MD Ot V76.12 OTH SCREEN MAMMO-MALIGN NEOPLASM OF SUZI 02/16/2016 ZORA JACOB MD Ot 278. 00 OBESITY, NOS 02/16/2016 ZORA JACOB MD Ot 719. 46 JOINT PAIN-L/LEG 02/16/2016 ZORA JACOB MD Ot 721. 3 LUMBOSACRAL SPONDYLOSIS 02/16/2016 ZORA JACOB MD Ot 729. 1 MYALGIA AND MYOSITIS NOS 02/16/2016 ZORA JACOB MD Ot V43. 65 KNEE JOINT REPLACEMENT STATUS 02/16/2016 ZORA JACOB MD Ot V58. 69 OTH MED,LT,CURRENT USE 02/16/2016 ZORA JACOB MD Ot V85. 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 02/08/2017 Ot 715.36 LOC OSTEOARTH NOS-L/LEG 02/08/2017 Ot V57.1 PHYS ICAL THERAPY NEC 02/08/2017 Ot V57.21 ENC OUNTER FOR OCCUPATIONAL THERAPY 02/08/2017 Ot V72.63 PRE -PROCEDURAL LABORATORY EXAMINATION 02/08/2017 Ot V72.81 [id number] CARDIOVASCULAR 02/08/2017 Ot V74.8 SCRE EN-BACTERIAL DIS NEC 02/08/2017 TOMMY MONTEIRO MD Ot V76.12 OTH SCREEN MAMMO-MALIGN NEOPLASM OF SUZI 02/08/2017 TOMMY MONTEIRO MD Ot 733.00 OSTEOPOROSIS NOS 02/08/2017 TOMMY MONTEIRO MD Ot V49.81 ASYMPT POSTMENOPAUSAL STATUS (AGE-RELATE 02/08/2017 JEEVAN LUNSFORD MD Ot V72.84 EXAM PRE-OPERATIVE NOS 02/08/2017 TOMMY MONTEIRO MD Ot 401.9 HYPERTENSION NOS 02/08/2017 TOMMY MONTEIRO MD Ot 49 6 CHR AIRWAY OBSTRUCT NEC 02/08/2017 TOMMY MONTEIRO MD Ot 799.02 HYPOXEMIA 02/08/2017 TOMMY MONTEIRO MD Ot V76.12 OTH SCREEN MAMMO-MALIGN NEOPLASM OF SUZI 02/08/2017 ZORA JACOB MD Ot 278. 00 OBESITY, NOS 02/08/2017 ZORA JACOB MD Ot 719. 46 JOINT PAIN-L/LEG 02/08/2017 ZORA JACOB MD Ot 721. 3 LUMBOSACRAL SPONDYLOSIS 02/08/2017 ZORA JACOB MD Ot 729. 1 MYALGIA AND MYOSITIS NOS 02/08/2017 ZORA JACOB MD Ot V43. 65 KNEE JOINT REPLACEMENT STATUS 02/08/2017 ZORA JACOB MD Ot V58. 69 OT MED,LT,CURRENT USE 02/08/2017 ZORA JACOB MD Ot V85. 39 BODY MASS INDEX 39.0-39.9, ADULT 02/08/2017 MICHAEL LOWE Ot 285.9 ANEMIA NOS 02/09/2017 JAIME ALMEIDA DO Ot N39. 0 URINARY TRACT INFECTION, SITE NOT SPECIF 02/09/2017 JAIME ALMEIDA DO Ot Z01.818 ENCOUNTER FOR OTHER PREPROCEDURAL EXAMIN 02/14/2017 MICHAEL LOWE Ot J44.9 CHRONIC OBSTRUCTIVE PULMONARY DISEASE, U 03/01/2017 JAIME ALMEIDA DO Ot N39. 0 URINARY TRACT INFECTION, SITE NOT SPECIF 03/01/2017 ALMEIDA DO, JAIME W Ot Z01.818 ENCOUNTER FOR OTHER PREPROCEDURAL EXAMIN 03/01/2017 MICHAEL LOWE PAIN MANAGEMENT PHYSICIAN Ot J44.9 CHRONIC OBSTRUCTIVE PULMONARY DISEASE, U 03/16/2017 ALMEIDA DO, JAIME W Ot Z47. 1 AFTERCARE FOLLOWING JOINT REPLACEMENT JOHANSEN 03/16/2017 ALMEIDA DO, JAIME W Ot Z96.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 LEFT ARTIFICIAL KNEE JOINT 03/19/2017 MICHAEL LOWE PAIN MANAGEMENT PHYSICIAN Ot J44.9 CHRONIC OBSTRUCTIVE PULMONARY DISEASE, U 03/22/2017 ALMEIDA DO, JAIME W Ot Z47. 1 AFTERCARE FOLLOWING JOINT REPLACEMENT JOHANSEN 03/22/2017 ALMEIDA DO, JAIME W Ot Z96.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 LEFT ARTIFICIAL KNEE JOINT 03/25/2017 SUMANTH STAUFFER, JASON J Ot G47. 30 SLEEP APNEA, UNSPECIFIED 03/25/2017 JASON JULIO MD J Ot J45.909 UNSPECIFIED ASTHMA, UNCOMPLICATED 03/25/2017 JASON JULIO MD Ot R35. 0 FREQUENCY OF MICTURITION 03/25/2017 JASON JULIO MD J Ot Z79. 82 SKILLED NURSING (CURRENT) USE OF ASPIRIN 03/25/2017 ISADORA JULIO MDUS J Ot Z85.828 PERSONAL HISTORY OF OTHER MALIGNANT NEOP 03/25/2017 JASON JULIO MD J Ot Z96.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 LEFT ARTIFICIAL KNEE JOINT 04/21/2017 ALMEIDA DO, JAIME W Ot Z47. 1 AFTERCARE FOLLOWING JOINT REPLACEMENT JOHANSEN 04/21/2017 ELLE DO, JAIME W Ot Z96.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 LEFT ARTIFICIAL KNEE JOINT 05/26/2017 ALMEIDA DO, JAIME W Ot Z47. 1 AFTERCARE FOLLOWING JOINT REPLACEMENT JOHANSEN 05/26/2017 ALMEIDA DO, JAIME W Ot Z96.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 LEFT ARTIFICIAL KNEE JOINT 07/02/2017 ALMEIDA DO, JAIME W Ot Z47. 1 AFTERCARE FOLLOWING JOINT REPLACEMENT JOHANSEN 07/02/2017 ALMEIDA DO, JAIME W Ot Z96.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 LEFT ARTIFICIAL KNEE JOINT 07/23/2017 ALMEIDA DO, JAIME W Ot Z47. 1 AFTERCARE FOLLOWING JOINT REPLACEMENT JOHANSEN 07/23/2017 ALMEIDA DO, JAIME W Ot Z96.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 LEFT ARTIFICIAL KNEE JOINT 07/24/2017 ALMEIDA DO, JAIME W Ot Z47. 1 AFTERCARE FOLLOWING JOINT REPLACEMENT JOHANSEN 07/24/2017 JAIME ALMEIDA DO Ot Z96.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 LEFT ARTIFICIAL KNEE JOINT 09/25/2017 DINA BRO FUNCTIONAL TESTER TYPEWRITERS Ot R0 5 COUGH 10/11/2017 DINA BRO FUNCTIONAL TESTER TYPEWRITERS Ot R0 5 COUGH 12/24/2017 TOMMY MONTEIRO MD Ot V76.12 OTH SCREEN MAMMO-MALIGN NEOPLASM OF SUZI 12/24/2017 TOMMY MONTEIRO MD Ot 733.00 OSTEOPOROSIS NOS 12/24/2017 TOMMY MONTEIRO MD Ot V49.81 ASYMPT POSTMENOPAUSAL STATUS (AGE-RELATE 12/24/2017 ISATU STAUFFER, JEEVAN Ot V72.84 EXAM PRE-OPERATIVE NOS 12/24/2017 TOMMY MONTEIRO MD Ot 401.9 HYPERTENSION NOS 12/24/2017 TOMMY MONTEIRO MD Ot 49 6 CHR AIRWAY OBSTRUCT NEC 12/24/2017 TOMMY MONTEIRO MD Ot 799.02 HYPOXEMIA 12/24/2017 TOMMY MONTEIRO MD Ot V76.12 OTH SCREEN MAMMO-MALIGN NEOPLASM OF SUZI 12/24/2017 ZORA JACOB MD Ot 278. 00 OBESITY, NOS 12/24/2017 ZORA JACOB MD Ot 719. 46 JOINT PAIN-L/LEG 12/24/2017 ZORA JACOB MD Ot 721. 3 LUMBOSACRAL SPONDYLOSIS 12/24/2017 ZORA JACOB MD Ot 729. 1 MYALGIA AND MYOSITIS NOS 12/24/2017 ZORA JACOB MD Ot V43. 65 KNEE JOINT REPLACEMENT STATUS 12/24/2017 ZORA JACOB MD Ot V58. 69 OTH MED,LT,CURRENT USE 12/24/2017 ZORA JACOB MD Ot V85. 39 BODY MASS INDEX 39.0-39.9, ADULT 12/24/2017 MICHAEL LOWE Ot 285.9 ANEMIA NOS 12/24/2017 JAIME ALMEIDA DO Ot N39. 0 URINARY TRACT INFECTION, SITE NOT SPECIF 12/24/2017 JAIME ALMEIDA DO Ot Z01.818 ENCOUNTER FOR OTHER PREPROCEDURAL EXAMIN 12/24/2017 MICHAEL LOWE Ot J44.9 CHRONIC OBSTRUCTIVE PULMONARY DISEASE, U 12/24/2017 DINA BRO APRN Ot R0 5 COUGH 12/24/2017 CAYETANO STAUFFER, TOMMY Herrera Ot M79.606 PAIN IN LEG, UNSPECIFIED 12/24/2017 CAYETANO STAUFFER, TOMMY Herrera Ot R26.81 UNSTEADINESS ON FEET 12/24/2017 CAYETANO STAUFFER, TOMMY Herrera Ot R53.1 WEAKNESS 01/15/2018 CAYETANO STAUFFER, TOMYM A Ot M79.606 PAIN IN LEG, UNSPECIFIED 01/15/2018 CAYETANO STAUFFER, TOMMY A Ot R26.81 UNSTEADINESS ON FEET 01/15/2018 CAYETANO STAUFFER, TOMMY Herrera Ot R53.1 WEAKNESS 03/18/2018 CAYETANO STAUFFER, TOMMY Herrera Ot M79.606 PAIN IN LEG, UNSPECIFIED 03/18/2018 CAYETANO STAUFFER, TOMMY Herrera Ot R26.81 UNSTEADINESS ON FEET 03/18/2018 CAYETNAO STAUFFER, TOMMY Herrera Ot R53.1 WEAKNESS 03/19/2018 CAYETANO STAUFFER, TOMMY Herrera Ot M79.606 PAIN IN LEG, UNSPECIFIED 03/19/2018 CAYETANO STAUFFER, TOMMY A Ot R26.81 UNSTEADINESS ON FEET 03/19/2018 CAYETANO STAUFFER, TOMMY Herrera Ot R53.1 WEAKNESS 03/26/2018 CAYETANO STAUFFER, TOMMY Herrera Ot M79.606 PAIN IN LEG, UNSPECIFIED 03/26/2018 CAYETANO STAUFFER, TOMMY Herrera Ot R26.81 UNSTEADINESS ON FEET 03/26/2018 CAYETANO STAUFFER, TOMMY Herrera Ot R53.1 WEAKNESS 04/19/2018 TOMMY MONTEIRO MD Ot M79.604 PAIN IN RIGHT LEG 04/19/2018 CAYETANO STAUFFER, TOMMY Herrera Ot M79.605 PAIN IN LEFT LEG 04/19/2018 CAYETANO STAUFFER, TOMMY Herrera Ot R26.81 UNSTEADINESS ON FEET 04/19/2018 TOMMY MONTEIRO MD Ot R53.1 WEAKNESS 04/19/2018 TOMMY MONTEIRO MD Ot Z96.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 LEFT ARTIFICIAL KNEE JOINT 05/09/2018 TOMMY MONTEIRO MD Ot M79.604 PAIN IN RIGHT LEG 05/09/2018 TOMMY MONTERIO MD Ot M79.605 PAIN IN LEFT LEG 05/09/2018 TOMMY MONTEIRO MD Ot R26.81 UNSTEADINESS ON FEET 05/09/2018 CAYETANO STAUFFER, TOMMY Herrera Ot R53.1 WEAKNESS 05/09/2018 TOMMY MONTEIRO MD Ot Z96.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 LEFT ARTIFICIAL KNEE JOINT 07/22/2018 CAYETANO STAUFFER, TOMMY Herrera Ot M25.561 PAIN IN RIGHT KNEE 07/22/2018 CAYETANO STAUFFER, TOMMY Herrera Ot M25.562 PAIN IN LEFT KNEE 07/22/2018 TOMMY MONTEIRO MD Ot M54.9 DORSALGIA, UNSPECIFIED 07/29/2018 CAYETANO STAUFFER, TOMMY A Ot M25.561 PAIN IN RIGHT KNEE 07/29/2018 CAYETANO STAUFFER, TOMMY A Ot M25.562 PAIN IN LEFT KNEE 07/29/2018 CAYETANO STAUFFER, TOMMY Herrera Ot M54.9 DORSALGIA, UNSPECIFIED 09/05/2018 CAYETANO STAUFFER, TOMMY A Ot M25.561 PAIN IN RIGHT KNEE 09/05/2018 CAYETANO STAUFFER, TOMMY Herrera Ot M25.562 PAIN IN LEFT KNEE 09/05/2018 TOMMY MONTEIRO MD Ot M54.9 DORSALGIA, UNSPECIFIED 09/15/2018 CAYETANO STAUFFER, TOMMY A Ot M25.561 PAIN IN RIGHT KNEE 09/15/2018 CAYETANO STAUFFER, TOMMY Herrera Ot M25.562 PAIN IN LEFT KNEE 09/15/2018 CAYETANO STAUFFER, TOMMY Herrera Ot M54.9 DORSALGIA, UNSPECIFIED 09/16/2018 CAYETANO STAUFFER, TOMMY A Ot M25.561 PAIN IN RIGHT KNEE 09/16/2018 TOMMY MONTEIRO MD Ot M25.562 PAIN IN LEFT KNEE 09/16/2018 CAYETANO STAUFFER, TOMMY Herrera Ot M54.9 DORSALGIA, UNSPECIFIED 10/07/2018 MICHAEL LOWE Ot Z12.31 ENCNTR SCREEN MAMMOGRAM FOR MALIGNANT NE 10/29/2018 MICHAEL LOWE Ot Z12.31 ENCNTR SCREEN MAMMOGRAM FOR MALIGNANT NE 12/18/2018 SOUTH PETERS MD Ot Z01.818 ENCOUNTER FOR OTHER PREPROCEDURAL EXAMIN 12/19/2018 SOUTH PETERS MD Ot Z01.818 ENCOUNTER FOR OTHER PREPROCEDURAL EXAMIN 12/20/2018 JEEVAN LUNSFORD MD Ot V72.84 EXAM PRE-OPERATIVE NOS 12/20/2018 TOMMY MONTEIRO MD Ot 401.9 HYPERTENSION NOS 12/20/2018 TOMMY MONTEIRO MD Ot 49 6 CHR AIRWAY OBSTRUCT NEC 12/20/2018 TOMMY MONTEIRO MD Ot 799.02 HYPOXEMIA 12/20/2018 TOMMY MONTEIRO MD Ot V76.12 OTH SCREEN MAMMO-MALIGN NEOPLASM OF SUZI 12/20/2018 ZORA JACOB MD Ot 278. 00 OBESITY, NOS 12/20/2018 ZORA JACOB MD Ot 719. 46 JOINT PAIN-L/LEG 12/20/2018 ZORA JACOB MD Ot 721. 3 LUMBOSACRAL SPONDYLOSIS 12/20/2018 ZORA JACOB MD, Ot 729. 1 MYALGIA AND MYOSITIS NOS 12/20/2018 ZORA JACOB MD Ot V43. 65 KNEE JOINT REPLACEMENT STATUS 12/20/2018 ZORA JACOB MD, Ot V58. 69 OTH MED,LT,CURRENT USE 12/20/2018 ZORA JACOB MD Ot V85. 39 BODY MASS INDEX 39.0-39.9, ADULT 12/20/2018 MICHAEL LOWE Ot 285.9 ANEMIA NOS 12/20/2018 JAIME ALMEIDA DO Ot N39. 0 URINARY TRACT INFECTION, SITE NOT SPECIF 12/20/2018 JAIME ALMEIDA DO Ot Z01.818 ENCOUNTER FOR OTHER PREPROCEDURAL EXAMIN 12/20/2018 MICHAEL LOWE Ot J44.9 CHRONIC OBSTRUCTIVE PULMONARY DISEASE, U 12/20/2018 DINA BRO APRN Ot R0 5 COUGH 12/20/2018 MICHAEL LOWE Ot Z12.31 ENCNTR SCREEN MAMMOGRAM FOR MALIGNANT NE 12/20/2018 SOUTH PETERS MD Ot E03 .9 HYPOTHYROIDISM, UNSPECIFIED 12/20/2018 SOUTH PETERS MD Ot E66 .9 OBESITY, UNSPECIFIED 12/20/2018 SOUTH PETERS MD Ot E78.00 PURE HYPERCHOLESTEROLEMIA, UNSPECIFIED 12/20/2018 SOUTH PETERS MD Ot H25.12 AGE-RELATED NUCLEAR CATARACT, LEFT EYE 12/20/2018 SOUTH PETERS MD Ot I10 ESSENTIAL (PRIMARY) HYPERTENSION 12/20/2018 SOUTH PETERS MD Ot Z68.41 BODY MASS INDEX (BMI) 40.0-44.9, ADULT 12/20/2018 SOUTH PETERS MD Ot Z79.82 TRAIN ANNOUNCER (CURRENT) USE OF ASPIRIN 12/20/2018 SOUTH PETERS MD Ot Z79.899 OTHER TRAIN ANNOUNCER (CURRENT) DRUG THERAPY 12/23/2018 SOUTH PETERS MD Ot E03 .9 HYPOTHYROIDISM, UNSPECIFIED 12/23/2018 SOUTH PETERS MD Ot E66 .9 OBESITY, UNSPECIFIED 12/23/2018 SOUTH PETERS MD Ot E78.00 PURE HYPERCHOLESTEROLEMIA, UNSPECIFIED 12/23/2018 SOUTH PETERS MD Ot H25.12 AGE-RELATED NUCLEAR CATARACT, LEFT EYE 12/23/2018 SOUTH PETERS MD Ot I10 ESSENTIAL (PRIMARY) HYPERTENSION 12/23/2018 SOUTH PETERS MD Ot Z68.41 BODY MASS INDEX (BMI) 40.0-44.9, ADULT 12/23/2018 SOUTH PETERS MD Ot Z79.82 SKILLED NURSING (CURRENT) USE OF ASPIRIN 12/23/2018 SOUTH PETERS MD Ot Z79.899 OTHER TRAIN ANNOUNCER (CURRENT) DRUG THERAPY 12/25/2018 SOUTH PETERS MD Ot Z01.818 ENCOUNTER FOR OTHER PREPROCEDURAL EXAMIN 12/25/2018 SOUTH PETERS MD Ot Z01.818 ENCOUNTER FOR OTHER PREPROCEDURAL EXAMIN 12/27/2018 SOUTH PETERS MD Ot E03 .9 HYPOTHYROIDISM, UNSPECIFIED 12/27/2018 SOUTH PETERS MD Ot E78.00 PURE HYPERCHOLESTEROLEMIA, UNSPECIFIED 12/27/2018 SOUTH PETERS MD Ot H26.491 OTHER SECONDARY CATARACT, RIGHT EYE 12/27/2018 SOUTH PETERS MD Ot I10 ESSENTIAL (PRIMARY) HYPERTENSION 12/27/2018 SOUTH PETERS MD Ot Z79.82 TRAIN ANNOUNCER (CURRENT) USE OF ASPIRIN 12/27/2018 SOUTH PETERS MD Ot Z79.899 OTHER SKILLED NURSING (CURRENT) DRUG THERAPY 12/27/2018 SOUTH PETERS MD Ot Z87.891 PERSONAL HISTORY OF NICOTINE DEPENDENCE 12/31/2018 SOUTH PETERS MD Ot E03 .9 HYPOTHYROIDISM, UNSPECIFIED 12/31/2018 SOUTH PETERS MD Ot E78.00 PURE HYPERCHOLESTEROLEMIA, UNSPECIFIED 12/31/2018 SOUTH PETERS MD Ot H26.491 OTHER SECONDARY CATARACT, RIGHT EYE 12/31/2018 SOUTH PETERS MD Ot I10 ESSENTIAL (PRIMARY) HYPERTENSION 12/31/2018 SOUTH PETERS MD Ot Z79.82 SKILLED NURSING (CURRENT) USE OF ASPIRIN 12/31/2018 SOUTH PETERS MD Ot Z79.899 OTHER TRAIN ANNOUNCER (CURRENT) DRUG THERAPY 12/31/2018 SOUTH PETERS MD Ot Z87.891 PERSONAL HISTORY OF NICOTINE DEPENDENCE 12/24/2019 MICHAEL LOWE Ot I49.9 CARDIAC ARRHYTHMIA, UNSPECIFIED 12/24/2019 TOMMY MONTEIRO MD Ot 401.9 HYPERTENSION NOS 12/24/2019 TOMMY MONTEIRO MD Ot 49 6 CHR AIRWAY OBSTRUCT NEC 12/24/2019 TOMMY MONTEIRO MD Ot 799.02 HYPOXEMIA 12/24/2019 TOMMY MONTEIRO MD Ot V76.12 OTH SCREEN MAMMO-MALIGN NEOPLASM OF SUZI 12/24/2019 ZORA JACOB MD Ot 278. 00 OBESITY, NOS 12/24/2019 ZORA JACOB MD Ot 719. 46 JOINT PAIN-L/LEG 12/24/2019 ZORA JACOB MD Ot 721. 3 LUMBOSACRAL SPONDYLOSIS 12/24/2019 ZORA JACOB MD Ot 729. 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 69 OTH MED,LT,CURRENT USE 12/24/2019 ZORA JACOB MD Ot V85. 39 BODY MASS INDEX 39.0-39.9, ADULT 12/24/2019 MICHAEL LOWE PAIN MANAGEMENT PHYSICIAN Ot 285.9 ANEMIA NOS 12/24/2019 JAIME ALMEIDA DO Ot N39. 0 URINARY TRACT INFECTION, SITE NOT SPECIF 12/24/2019 JAIME ALMEIDA DO Ot Z01.818 ENCOUNTER FOR OTHER PREPROCEDURAL EXAMIN 12/24/2019 CHRISSYJOELMICHAEL M [facility] Ot J44.9 CHRONIC OBSTRUCTIVE PULMONARY DISEASE, U 12/24/2019 DINA BRO APRN Ot R0 5 COUGH 12/24/2019 LOWEMARCUSVIRGIL SIDDIQUIP Ot Z12.31 ENCNTR SCREEN MAMMOGRAM FOR MALIGNANT NE 12/24/2019 CHRISSY MICHAELASHUTOSH SIDDIQUIP Ot I49.9 CARDIAC ARRHYTHMIA, UNSPECIFIED 12/30/2019 MICHAEL LOWEP Ot I34.0 NONRHEUMATIC MITRAL (VALVE) INSUFFICIENC 12/30/2019 CHRISSYMARCUSVIRGIL SIDDIQUIP Ot I48.91 UNSPECIFIED ATRIAL FIBRILLATION Procedures Code Description Performed By Per ajit On 81.54 TOTA L KNEE REPLACEMENT 06/19/2012 Results Test Result Range Complete blood count (CBC) with automate d white blood cell (WBC) differential - 02/08/17 13:55 Blood leukocytes automated count (number/volume) 10.1 10*3/uL 4.3-11.0 Blood erythrocytes automated count (number/volume) 4.32 10*6/uL 4.35-5.85 Venous blood hemoglobin measurement (mass/volume) 12.4 g/dL 11.5-16.0 Blood hematocrit (volume fraction) 40 % 35-52 Automated erythrocyte mean corpuscular volume 93 [ foz_us] 80-99 Automated erythrocyte mean corpuscular h emoglobin (mass per erythrocyte) 29 pg 25-34 Automated erythrocyte mean corpuscular h emoglobin concentration measurement (mass/volume) 31 g/dL 32-36 Automated erythrocyte distribution width ratio 14. 1 % 10.0- 14.5 Automated blood platelet count (count/volume) 269 10*3/uL [...] 10*3 1.0-4.0 Blood monocytes automated count (number/volume) 0. 9 10*3 0.0-1.0 Automated eosinophil count 0.4 10*3/uL 0 .0-0.3 Automated blood basophil count (count/volume) 0.0 10*3/uL 0.0-0.1 Complete urinalysis with reflex to cultu re - 02/08/17 15:00 Urine color determination YELLOW NRG Urine clarity determination CLEAR NR G Urine pH measurement by test strip 5 5-9 Specific gravity of urine by test strip 1.025 1.016-1.022 Urine protein assay by test strip, semi-quantitative NEGATIVE NEGATIVE Urine glucose detection by automated test strip NE GATIVE NEGATIVE Erythrocytes detection in urine sediment by light micr oscopy NEGATIVE NEGATIVE Urine ketones detection by automated test strip NE GATIVE NEGATIVE Urine nitrite detection by test strip NEGATIVE NEGATIVE Urine total bilirubin detection by test strip NEGA TIVE NEGATIVE Urine urobilinogen measurement by automated test strip (mass/volume) NORMAL NORMAL Urine leukocyte esterase detection by dipstick 1+ NEGATIVE Automated urine sediment erythrocyte cou nt by microscopy (number/high power field) NONE NRG Automated urine sediment leukocyte count by microscopy (number/high power field) [HPF] NRG Bacteria detection in urine sediment by light microsco py NONE NRG Squamous epithelial cells detection in u rine sediment by light microscopy 2-5 NRG Crystals detection in urine sediment by light microsco py NONE NRG Casts detection in urine sediment by light microscopy NONE NRG Mucus detection in urine sediment by light microscopy NEGATIVE NRG Complete urinalysis with reflex to culture NO NRG Complete urinalysis with reflex to cultu re - 03/25/17 07:11 Urine color determination YELLOW NRG Urine clarity determination SLIGHTLY CLOUDY NRG Urine pH measurement by test strip 8 5-9 Specific gravity of urine by test strip 1.010 1.016-1.022 Urine protein assay by test strip, semi-quantitative 1+ NEGATIVE Urine glucose detection by automated test strip NE GATIVE NEGATIVE Erythrocytes detection in urine sediment by light micr oscopy NEGATIVE NEGATIVE Urine ketones detection by automated test strip NE GATIVE NEGATIVE Urine nitrite detection by test strip NEGATIVE NEGATIVE Urine total bilirubin detection by test strip NEGA TIVE NEGATIVE Urine urobilinogen measurement by automated test strip (mass/volume) 1 mg/dL NORMAL Urine leukocyte esterase detection by dipstick NEG ATIVE NEGATIVE Automated urine sediment erythrocyte cou nt by microscopy (number/high power field) NONE NRG Automated urine sediment leukocyte count by microscopy (number/high power field) NONE NRG Bacteria detection in urine sediment by light microsco py NEGATIVE NRG Squamous epithelial cells detection in u rine sediment by light microscopy 2-5 NRG Crystals detection in urine sediment by light microsco py NONE NRG Casts detection in urine sediment by light microscopy NONE NRG Mucus detection in urine sediment by light microscopy NEGATIVE NRG Complete urinalysis with reflex to culture NO NRG Complete blood count (CBC) with automate d white blood cell (WBC) differential - 03/25/17 08:06 Blood leukocytes automated count (number/volume) 8.9 10*3/uL 4.3-11.0 Blood erythrocytes automated count (number/volume) 4.33 10*6/uL 4.35-5.85 Venous blood hemoglobin measurement (mass/volume) 12.2 g/dL 11.5-16.0 Blood hematocrit (volume fraction) 40 % 35-52 Automated erythrocyte mean corpuscular volume 91 [ foz_us] 80-99 Automated erythrocyte mean corpuscular h emoglobin (mass per erythrocyte) 28 pg 25-34 Automated erythrocyte mean corpuscular h emoglobin concentration measurement (mass/volume) 31 g/dL 32-36 Automated erythrocyte distribution width ratio 14. 4 % 10.0- 14.5 Automated blood platelet count (count/volume) 336 10*3/uL [...] 10*3 1.0-4.0 Blood monocytes automated count (number/volume) 0. 9 10*3 0.0-1.0 Automated eosinophil count 0.2 10*3/uL 0 .0-0.3 Automated blood basophil count (count/volume) 0.1 10*3/uL 0.0-0.1 Comprehensive metabolic panel - 07/30/17 08:06 Serum or plasma sodium measurement (moles/volume) 140 mmol/L 135-145 Serum or plasma potassium measurement (moles/volume) 4.6 mmol/L 3.6-5.0 Serum or plasma chloride measurement (moles/volume) 102 mmol/L 98-107 Carbon dioxide 32 mmol/L 21-32 Serum or plasma anion gap determination (moles/volume) 6 mmol/L 5-14 Serum or plasma urea nitrogen measurement (mass/volume ) 12 mg/dL 7-18 Serum or plasma creatinine measurement (mass/volume) 0.71 mg/dL 0.60-1.30 Serum or plasma urea nitrogen/creatinine mass ratio 17 NRG Serum or plasma creatinine measurement w ith calculation of estimated glomerular filtration rate > NRG Serum or plasma glucose measurement (mass/volume) 102 mg/dL 70-105 Serum or plasma calcium measurement (mass/volume) 9.6 mg/dL 8.5-10.1 Serum or plasma total bilirubin measurement (mass/volu me) 0.7 mg/dL 0.1-1.0 Serum or plasma alkaline phosphatase jake surement (enzymatic activity/volume) 84 U/L 40-136 Serum or plasma aspartate aminotransfera se measurement (enzymatic activity/volume) 23 U/L 5-34 Serum or plasma alanine aminotransferase measurement (enzymatic activity/volume) 13 U/L 0-55 Serum or plasma protein measurement (mass/volume) 6.7 g/dL 6.4-8.2 Serum or plasma albumin measurement (mass/volume) 3.8 g/dL 3.2-4.5 Magnesium - 03/25/17 08:06 Magnesium 2.6 mg/dL 1.8-2.4 Encounters ACCT No. Visit Date/Time Discharge Status Pt. Type Provider Facility Loc./Unit Complaint [id number] 12/29/2019 14:13:00 23:59:59 CLS Outpatient MICHAEL LOWE Via [facility] CARD AFIB [id number] 12/22/2019 09:45:00 23:59:59 CLS Outpatient MICHAEL LOWE [facility] CARD IRREG HEART RYT HYM [id number] 12/27/2018 09:35:00 019 10:40:00 DIS Outpatient SOUTH PETERS MD Via [facility] YAG [id number] 12/25/2018 14:40:00 14:51:00 DIS Outpatient SOUTH PETERS MD [facility] PREOP YAG [id number] 12/20/2018 08:50:00 10:41:00 DIS Outpatient SOUTH PETERS MD [facility] LEFT EYE CATARACT [id number] 12/18/2018 05:41:00 13:12:00 DIS Outpatient SOUTH PETERS MD [facility] PREOP CATARACT LEFT EYE [id number] 10/07/2018 09:31:00 23:59:59 CLS Outpatient MICHAEL LOWE [facility] RAD SCREENING [id number] 09/16/2018 00:12:00 23:59:59 CLS Preadmit TOMMY MONTEIRO MD [facility] REHAB KNEE AND BACK PAIN [id number] 07/25/2018 14:01:00 019 00:01:00 DIS Outpatient TOMMY MONTEIRO MD [facility] REHAB KNEE AND BACK PAIN [id number] 09/03/2018 13:29:00 23:59:59 CLS Preadmit TOMMY MONTEIRO MD [facility] RAD SCREENING MAMMO [id number] 05/09/2018 13:00:00 13:55:00 DIS Outpatient TOMMY MONTEIRO MD [facility] REHAB KNEE PAIN; GENERAL [place]on OWENS [id number] 03/14/2018 15:16:00 00:01:00 DIS Outpatient TOMMY MONTEIRO MD [facility] REHAB KNEE PAIN; GENERAL [place]ENS [id number] 09/07/2017 11:46:00 23:59:59 CLS Outpatient DINA BRO APRN [facility] RAD SHORTNESS OF BREATH [id number] 06/01/2017 10:58:00 017 14:35:00 DIS Outpatient JAIME ALMEIDA DO [facility] REHAB S/P LEFT TOTAL KNEE REP LACEMENT [id number] 05/25/2017 10:30:00 017 00:01:00 DIS Outpatient JAIME ALMEIDA DO [facility] REHAB S/P LEFT TOTAL KNEE REP LACEMENT [id number] 03/25/2017 07:06:00 017 08:53:00 DIS Emergency JASON JULOI MD [facility] ER BLADDER INFECTION [id number] 02/08/2017 13:24:00 017 23:59:59 CLS Outpatient MICHAEL LOWE [facility] RAD COUGH [id number] 02/08/2017 13:17:00 017 23:59:59 CLS Outpatient ALMEIDA JAIME MIRELES [facility] LAB UTI PRE OP TESTING [id number] 03/21/2016 10:51:00 016 17:00:00 DIS Outpatient TOMMY MONTEIRO MD [facility] REHAB LYMPHEDEMA BILATERAL L E [id number] 12/07/2014 12:14:00 015 13:33:00 DIS Outpatient ZORA JACOB MD [facility] CARD RT KNEE PAIN [id number] 09/21/2014 15:00:00 015 23:59:59 CLS Outpatient ZORA JACOB MD [facility] CARD KNEE PAIN [id number] 09/03/2014 11:53:00 015 23:59:59 CLS Outpatient MICHAEL LOWE [facility] LAB ANEMIA, SLIGHTL Y ELEVATED WBC [id number] 08/24/2014 13:51:00 014 23:59:59 CLS Outpatient ZORA JACOB MD [facility] CARD KNEE PAIN [id number] 07/22/2014 09:16:00 23:59:59 CLS Outpatient TOMMY MONTEIRO MD [facility] RAD ROUTINE,COPD [id number] 12/31/2013 16:55:00 18:52:00 DIS Emergency GALILEO ARREGUIN [facility] ER FALL; R WRIST PAIN [id number] 10/15/2013 08:29:00 014 12:15:00 DIS Outpatient JEEVAN LUNSFORD MD [facility] SDC SCREENING/REFLUX [id number] 10/08/2013 07:28:00 23:59:59 CLS Outpatient JEEVAN LUNSFORD MD [facility] PREOP SCREENING/REFLUX [id number] 04/18/2013 08:04:00 23:59:59 CLS Outpatient TOMMY MONTEIRO MD [facility] RAD POST MENOPAUSAL OSTEOP OROSIS [id number] 03/05/2013 08:47:00 013 23:59:59 CLS Outpatient TOMMY MONTEIRO MD [facility] RAD ROUTINE [id number] 01/02/2020 11:20:[address] Outpatient Telma BAILEY MD [facility] CARD AFIB [id number] 08/24/2014 13:52:00 Document Registration [id number] 09/11/2012 11:44:00 Document Registration [id number] 06/19/2012 05:48:00 Document Registration [id number] 06/13/2012 07:58:00 Document Registration [id number] 01/17/2012 08:27:00 Document Registration [id number] 04/24/2011 07:38:00 Document Registration [id number] 06/10/2010 09:11:00 Document Registration [id number] 05/18/2010 05:44:00 Document Registration [id number] 05/11/2010 09:00:00 Document Registration [id number] 04/20/2010 13:27:00 Document Registration [id number] 05/25/2009 09:32:00 Document Registration
== END 2020-01-05 02:02 | disposition expired ==
LOC: EDUNIT# 00:24 → ER 00:26
DX: I46.9 Cardiac arrest, cause unspecified (principal); J45.909 Unspecified asthma, uncomplicated; Z88.5 Allergy status to narcotic agent; Z79.82 Long term (current) use of aspirin
CPT/HCPCS: 31500